=== PATIENT | female | born 1965 | race Caucasian/White ===

== ENCOUNTER → 2017-11-03 12:34 | Outpatient (CLI) | payer MEDICARE, SELFPAY ==
[2017-11-03 11:50] VITALS: BP 90/50; BMI 33.2
== END ==
PROVIDERS: Family Provider Internal Medicine; PCP Internal Medicine; Visit Provider Nurse Practitioner Adult Health
DX: R31.9 Hematuria, unspecified (principal)
CPT/HCPCS: 71046; 87077; 87086; 87088; 87186

== ENCOUNTER → 2017-11-07 11:05 | Outpatient (CLI) | payer MEDICARE, SELFPAY ==
[2017-11-07 11:12] LABS: Red Blood Cells-Urine 0 SEEN /hpf (0-5)
[2017-11-07 12:14] LABS: Color, Urine Yellow (Yellow); Glucose, Dipstick Normal (Normal); Ketone-Dipstick Negative (Negative); Leukocyte Esterase-Dipstick 500 /ul (Negative); Nitrite-Dipstick Negative (Negative); Occult Blood-Urine Negative /ul (Negative); Protein-Dipstick 30 mg/dl (Negative); Urine Clarity Cloudy (Clear); Urine Urobilinogen Normal (Normal)
[2017-11-07 12:17] LABS: Urine Bilirubin Dipstick 1 mg/dL (Negative)
[2017-11-07 12:19] LABS: Absolute Lymphocyte Count 1.34 X10^3/ul (0.83-4.51); Absolute Neutrophil Count 3.3 X10^3/uL (2.0-7.7); Basophil# 0.02 X10^3/uL; Basophil% 0.4 % (0-1); Eosinophil# 0.14 X10^3/uL; Eosinophils% 2.6 % (0-5); Hematocrit 36.3 % (37-47); Hemoglobin 11.4 g/dl (12.0-15.0); Lymphocyte # 1.34 X10^3/ul (4.0); Mean Corp Hgb Conc 31.4 g/gl (32-36); Mean Corpuscular Hgb 31.6 pg (27.0-32.0); Mean Corpuscular Volume 100.6 fL (81-99); Mean Platelet Vol. 9.2 fl (6.2-12.0); Monocyte# 0.54 X10^3/uL; Monocyte% 10.1 % (0-10); Neutrophil # 3.29 X10^3/uL (2.7-7.7); Neutrophil % 61.5 % (47-70); Platelet Count 333 K/mm3 (150-450); RBC Distribution Width CV 14.9 % (11.6-14.6); RBC Distribution Width SD 54.4 fl (35.1-43.9); Red Blood Count 3.61 M/mm3 (4.2-5.4); White Blood Count 5.4 K/mm3 (4.4-11.0)
[2017-11-07 12:22] LABS: POSITIVE COUNT NO; POSITIVE DIFFERENTIAL NO; POSITIVE MORPHOLOGY NO
[2017-11-07 12:26] LABS: White Blood Cells 5-10 SEEN /hpf (0-5)
[2017-11-07 12:27] LABS: Bacteria RARE /hpf (None Seen); Mucous, Urine RARE /hpf (<or=2+); Squamous Epithelial Cells - UA 0-5 SEEN /hpf (5-10)
[2017-11-07 12:32] LABS: ALB/GLOB Ratio 1.2 RATIO (0.9-2.4); AST(SGOT) 26 U/L (15-37); Alanine Aminotransfer ALT/SGPT 31 U/L (13-56); Albumin, Serum 3.6 g/dL (3.2-5.0); Alkaline Phosphatase 110 U/L (45-117); Anion Gap 7 (5-15); BUN 15 mg/dL (7-18); Calcium,Total 8.8 mg/dL (8.5-10.1); Chloride 100 mmol/L (98-107); EST Glomerular Filtration Rate 62 mL/min (>60); Est Glom Filt Rate - Afr Amer 74 mL/min (>60); Globulin 3.1 g/dL (2.2-4.2); Glucose 143 mg/dL (74-106); Potassium 3.9 mmol/L (3.5-5.1); Protein, Total 6.7 g/dL (6.4-8.2); Sodium Level 135 mmol/L (136-145)
== END ==
PROVIDERS: Family Provider Internal Medicine; PCP Internal Medicine; Visit Provider Internal Medicine Cardiovascular Disease
DX: M06.4 Inflammatory polyarthropathy (principal); M79.7 Fibromyalgia; M19.071 Primary osteoarthritis, right ankle and foot; K76.0 Fatty (change of) liver, not elsewhere classified; F32.89 Other specified depressive episodes; F41.9 Anxiety disorder, unspecified; E11.9 Type 2 diabetes mellitus without complications; I10 Essential (primary) hypertension; I43 Cardiomyopathy in diseases classified elsewhere; Z79.899 Other long term (current) drug therapy; Z95.810 Presence of automatic (implantable) cardiac defibrillator
CPT/HCPCS: 80053; 81001; 85025; 87086; 87088

== ENCOUNTER → 2017-11-10 08:57 | Day surgery (SDC) | payer MEDICARE, SELFPAY ==
--- NOTE | 2017-11-03 12:29 | RAD_ITS ---
STUDY: X-RAY CHEST REASON FOR EXAM: Female, 52 years old. ICD generator change. TECHNIQUE: PA and lateral views of the chest. COMPARISON: February 17, 2013. FINDINGS: The lungs are hypoexpanded. No infiltrate or mass. Resolution of mild vascular congestion seen on the prior study. There is no pneumothorax. There is no demonstrated pleural abnormality. The heart remains borderline enlarged. Stable pacemaker/ICD. Normal mediastinum and kari. Normal visualized pulmonary arteries. Normal visualized aortic arch and descending thoracic aorta. No visualized osseous changes. Normal visualized ribs, clavicles, and shoulders. There is no demonstrated abnormality of the visualized soft tissue structures of the upper abdomen. RAD/Chest PA and Lateral IMPRESSION: Stable borderline cardiomegaly with cardiac pacemaker. There is no acute pulmonary disease. Electronically Signed: Dimitris Valderrama DO at 18:21 EST Tel [phone], Service support ,
[2017-11-03 13:35] LABS: Hematocrit 37.6 % (37-47); Hemoglobin 12.2 g/dl (12.0-15.0); Mean Corp Hgb Conc 32.4 g/gl (32-36); Mean Corpuscular Hgb 32.8 pg (27.0-32.0); Mean Corpuscular Volume 101.1 fL (81-99); Mean Platelet Vol. 9.6 fl (6.2-12.0); Platelet Count 366 K/mm3 (150-450); RBC Distribution Width CV 14.9 % (11.6-14.6); RBC Distribution Width SD 53.6 fl (35.1-43.9); Red Blood Count 3.72 M/mm3 (4.2-5.4); White Blood Count 8.7 K/mm3 (4.4-11.0)
[2017-11-03 13:37] LABS: Scan Indicated on CBC? Y/N NO
[2017-11-03 13:46] LABS: Prothrombin Time (Protime)PT. 12.9 SECONDS (11.7-14.9)
[2017-11-03 13:56] LABS: Anion Gap 10 (5-15); BUN 14 mg/dL (7-18); BUN/Creat Ratio 15.1 RATIO (10-20); Calcium,Total 9.2 mg/dL (8.5-10.1); Chloride 101 mmol/L (98-107); Creatinine, Serum 0.93 mg/dL (0.55-1.02); EST Glomerular Filtration Rate 67 mL/min (>60); Est Glom Filt Rate - Afr Amer 81 mL/min (>60); Glucose 112 mg/dL (74-106); Sodium Level 139 mmol/L (136-145)
[2017-11-09 11:32] VITALS: BMI 33.2
[2017-11-09 12:16] LABS: Pregnancy, Serum, hCG Quali. NEGATIVE Negative (0-9 Nonpreg)
--- NOTE | 2017-11-10 11:48 | PCM.OP.BLANK ---
Operative Report Date of Procedure: 11/10/17 Preoperative diagnosis is device at end of life for normal battery depletion. Postoperative diagnosis same as above. After informed consent and IV antibiotics the patient was brought to the [facility] catheterization laboratory and the skin over the device was prepped and draped in the usual sterile manner. Intermittent boluses of Versed, fentanyl and propofol were used for sedation and analgesia as well as 1% subcutaneous lidocaine. An incision was made over the pre-existing device. Using blunt and Bovie dissection the pocket was opened and the device was removed. Careful attention was paid not to injure the pre-existing leads. The lead was removed from the device header and interrogated. There is normal lead function. Hemostasis was obtained. The pocket was flushed with antibiotic solution. The sponge and needle count were correct. The new device was brought to the field. The lead was placed in the appropriate position in the header and secured by the set screw. The lead and the device were then placed in the pocket. Device is a single chamber ICD witha single RV lead. The pocket was closed with a deep layer of running 2-0 Vicryl, a superficial layer of running 4-0 Vicryl, skin with Steri-Strips which were covered with a rolled 4 x 4 and Tegaderm. Patient left the room with the device programmed to proper parameters and there were no complications. All lead parameters were tested and found to be functionally normal. Lead and device serial and model numbers are available in the chart documents provided by the device company hostess party sales representative procedure summary.
== END ==
PROVIDERS: Family Provider Internal Medicine; PCP Internal Medicine; Visit Provider Internal Medicine Cardiovascular Disease
DX: Z95.810 Presence of automatic (implantable) cardiac defibrillator (principal); I43 Cardiomyopathy in diseases classified elsewhere; C83.30 Diffuse large B-cell lymphoma, unspecified site; E11.9 Type 2 diabetes mellitus without complications; N39.0 Urinary tract infection, site not specified; Z79.2 Long term (current) use of antibiotics; Z79.84 Long term (current) use of oral hypoglycemic drugs; Z79.899 Other long term (current) drug therapy; Z00.6 Encounter for examination for normal comparison and control in clinical research program
CPT/HCPCS: 33262; 36415; 80048; 84703; 85027; 85610; 93641; 99152; 99153; J7050

== ENCOUNTER → 2017-11-22 08:30 | Outpatient (CLI) | payer MEDICARE, SELFPAY ==
[2017-11-22 09:21] LABS: Absolute Neutrophil Count 2.3 X10^3/uL (2.0-7.7); Basophil# 0.02 X10^3/uL; Basophil% 0.5 % (0-1); Eosinophil# 0.15 X10^3/uL; Eosinophils% 3.5 % (0-5); Hematocrit 37.3 % (37-47); Hemoglobin 11.9 g/dl (12.0-15.0); Lymphocyte % 30.7 % (19-41); Mean Corp Hgb Conc 31.9 g/gl (32-36); Mean Corpuscular Hgb 31.6 pg (27.0-32.0); Mean Corpuscular Volume 98.9 fL (81-99); Mean Platelet Vol. 9.1 fl (6.2-12.0); Monocyte# 0.48 X10^3/uL; Monocyte% 11.3 % (0-10); Neutrophil # 2.27 X10^3/uL (2.7-7.7); Neutrophil % 53.8 % (47-70); Platelet Count 306 K/mm3 (150-450); RBC Distribution Width CV 14.9 % (11.6-14.6); RBC Distribution Width SD 53.6 fl (35.1-43.9); Red Blood Count 3.77 M/mm3 (4.2-5.4); White Blood Count 4.2 K/mm3 (4.4-11.0)
[2017-11-22 09:25] LABS: POSITIVE COUNT NO; POSITIVE DIFFERENTIAL NO; POSITIVE MORPHOLOGY NO
[2017-11-22 09:44] LABS: ALB/GLOB Ratio 1.1 RATIO (0.9-2.4); AST(SGOT) 34 U/L (15-37); Alanine Aminotransfer ALT/SGPT 27 U/L (13-56); Albumin, Serum 3.6 g/dL (3.2-5.0); Alkaline Phosphatase 102 U/L (45-117); Anion Gap 8 (5-15); BUN 13 mg/dL (7-18); BUN/Creat Ratio 15.3 RATIO (10-20); Calcium,Total 9.3 mg/dL (8.5-10.1); Chloride 99 mmol/L (98-107); Creatinine, Serum 0.85 mg/dL (0.55-1.02); EST Glomerular Filtration Rate 74 mL/min (>60); Est Glom Filt Rate - Afr Amer 90 mL/min (>60); Globulin 3.3 g/dL (2.2-4.2); Glucose 122 mg/dL (74-106); Potassium 3.4 mmol/L (3.5-5.1); Protein, Total 6.9 g/dL (6.4-8.2); Sodium Level 138 mmol/L (136-145)
[2017-11-22 09:46] LABS: LDH 198 U/L (84-246)
== END ==
PROVIDERS: Family Provider Internal Medicine; PCP Internal Medicine; Visit Provider Internal Medicine Medical Oncology
DX: C85.90 Non-Hodgkin lymphoma, unspecified, unspecified site (principal)
CPT/HCPCS: 80053; 83615; 85025

== ENCOUNTER → 2018-01-26 11:10 | Outpatient (CLI) | payer MEDICARE, SELFPAY ==
[2018-01-26 11:48] LABS: Absolute Lymphocyte Count 0.41 X10^3/ul (0.83-4.51); Absolute Neutrophil Count 4.5 X10^3/uL (2.0-7.7); Basophil# 0.01 X10^3/uL; Basophil% 0.2 % (0-1); Differential Indicated SCAN CRITERIA MET; Eosinophil# 0.13 X10^3/uL; Eosinophils% 2.5 % (0-5); Hematocrit 33.8 % (37-47); Hemoglobin 10.4 g/dl (12.0-15.0); Lymphocyte # 0.41 X10^3/ul (4.0); Lymphocyte % 7.8 % (19-41); Mean Corp Hgb Conc 30.8 g/gl (32-36); Mean Corpuscular Hgb 31.4 pg (27.0-32.0); Mean Corpuscular Volume 102.1 fL (81-99); Mean Platelet Vol. 9.7 fl (6.2-12.0); Monocyte# 0.22 X10^3/uL; Monocyte% 4.2 % (0-10); Neutrophil # 4.48 X10^3/uL (2.7-7.7); Neutrophil % 85.1 % (47-70); POSITIVE COUNT NO; POSITIVE DIFFERENTIAL YES; POSITIVE MORPHOLOGY YES; Platelet Count 273 K/mm3 (150-450); RBC Distribution Width CV 17.7 % (11.6-14.6); RBC Distribution Width SD 65.5 fl (35.1-43.9); Red Blood Count 3.31 M/mm3 (4.2-5.4); White Blood Count 5.3 K/mm3 (4.4-11.0)
[2018-01-26 12:17] LABS: Microalbumin,Random Urine 58.6 mg/L (NO RANGE EST.); Microalbumin:Creatinine Ratio 34.3 mg/g CRE (<30 mg/g CRE)
[2018-01-26 12:19] LABS: ALB/GLOB Ratio 1.1 RATIO (0.9-2.4); AST(SGOT) 26 U/L (15-37); Alanine Aminotransfer ALT/SGPT 21 U/L (13-56); Albumin, Serum 3.5 g/dL (3.2-5.0); Alkaline Phosphatase 109 U/L (45-117); Amylase 29 U/L (25-115); Anion Gap 9 (5-15); BUN 16 mg/dL (7-18); BUN/Creat Ratio 14.3 RATIO (10-20); Calcium,Total 9.3 mg/dL (8.5-10.1); Chloride 102 mmol/L (98-107); Cholesterol 77 mg/dL (200); Creatinine, Serum 1.12 mg/dL (0.55-1.02); EST Glomerular Filtration Rate 54 mL/min (>60); Est Glom Filt Rate - Afr Amer 65 mL/min (>60); Globulin 3.2 g/dL (2.2-4.2); Glucose 107 mg/dL (74-106); High Density Lipoprotein 29 mg/dL; Lipase 101 U/L (73-393); Magnesium 1.8 mg/dL (1.6-2.6); Potassium 4.6 mmol/L (3.5-5.1); Protein, Total 6.7 g/dL (6.4-8.2); Sodium Level 138 mmol/L (136-145); Thyroid Stim Hormone (TSH) 1.84 uIU/mL (0.358-3.74); Triglycerides 76 mg/dL; Very Low Density Lipoprotein 15 mg/dL (5-40)
[2018-01-26 12:22] LABS: Anisocytosis 1+
[2018-01-26 12:34] LABS: Digoxin Level 0.92 ng/mL (0.80-2.00)
[2018-01-27 08:39] LABS: Vitamin B12 383 pg/mL (211-911)
== END ==
PROVIDERS: Family Provider Internal Medicine; PCP Internal Medicine; Visit Provider Internal Medicine
DX: I10 Essential (primary) hypertension (principal); M06.4 Inflammatory polyarthropathy; M79.7 Fibromyalgia; M19.071 Primary osteoarthritis, right ankle and foot; K76.0 Fatty (change of) liver, not elsewhere classified; F32.89 Other specified depressive episodes; F41.9 Anxiety disorder, unspecified; E11.9 Type 2 diabetes mellitus without complications; E03.9 Hypothyroidism, unspecified; R10.13 Epigastric pain; I42.9 Cardiomyopathy, unspecified; E55.9 Vitamin D deficiency, unspecified; E78.2 Mixed hyperlipidemia; R53.83 Other fatigue; Z79.899 Other long term (current) drug therapy
CPT/HCPCS: 36415; 80053; 80061; 80162; 82043; 82150; 82306; 82570; 82607; 83690; 83735; 84443; 85025

== ENCOUNTER → 2018-02-23 15:18 | Outpatient (CLI) | payer MEDICARE, SELFPAY ==
[2018-02-23 15:41] LABS: Absolute Lymphocyte Count 0.82 X10^3/ul (0.83-4.51); Absolute Neutrophil Count 5.4 X10^3/uL (2.0-7.7); Basophil# 0.04 X10^3/uL; Basophil% 0.6 % (0-1); Eosinophil# 0.03 X10^3/uL; Eosinophils% 0.4 % (0-5); Hematocrit 34.2 % (37-47); Hemoglobin 10.7 g/dl (12.0-15.0); Lymphocyte # 0.82 X10^3/ul (4.0); Mean Corp Hgb Conc 31.3 g/gl (32-36); Mean Corpuscular Hgb 31.9 pg (27.0-32.0); Mean Corpuscular Volume 102.1 fL (81-99); Mean Platelet Vol. 10.8 fl (6.2-12.0); Monocyte# 0.56 X10^3/uL; Monocyte% 8.2 % (0-10); Neutrophil % 78.7 % (47-70); Platelet Count 276 K/mm3 (150-450); RBC Distribution Width CV 18.3 % (11.6-14.6); RBC Distribution Width SD 66.8 fl (35.1-43.9); Red Blood Count 3.35 M/mm3 (4.2-5.4); White Blood Count 6.9 K/mm3 (4.4-11.0)
[2018-02-23 15:57] LABS: Erythrocyte Sedimentation Rate 16 mm/hr (0-30)
[2018-02-23 15:58] LABS: Differential Indicated SCAN CRITERIA MET; POSITIVE COUNT NO; POSITIVE DIFFERENTIAL NO; POSITIVE MORPHOLOGY YES
[2018-02-23 16:05] LABS: ALB/GLOB Ratio 1.4 RATIO (0.9-2.4); AST(SGOT) 186 U/L (15-37); Alanine Aminotransfer ALT/SGPT 86 U/L (13-56); Albumin, Serum 3.7 g/dL (3.2-5.0); Alkaline Phosphatase 105 U/L (45-117); Amylase 27 U/L (25-115); Anion Gap 11 (5-15); BUN 16 mg/dL (7-18); BUN/Creat Ratio 13.7 RATIO (10-20); Calcium,Total 9.2 mg/dL (8.5-10.1); Chloride 98 mmol/L (98-107); Creatinine, Serum 1.17 mg/dL (0.55-1.02); EST Glomerular Filtration Rate 51 mL/min (>60); Est Glom Filt Rate - Afr Amer 62 mL/min (>60); Globulin 2.6 g/dL (2.2-4.2); Glucose 120 mg/dL (74-106); Lipase 92 U/L (73-393); Potassium 5.1 mmol/L (3.5-5.1); Protein, Total 6.3 g/dL (6.4-8.2); Sodium Level 134 mmol/L (136-145)
[2018-02-23 16:56] LABS: Anisocytosis RARE; Macrocytosis 1+
== END ==
PROVIDERS: Family Provider Internal Medicine; Visit Provider Internal Medicine
DX: R10.13 Epigastric pain (principal)
CPT/HCPCS: 80053; 82150; 83690; 85025; 85652

== ENCOUNTER 2018-03-07 22:08 | Inpatient (IN) | payer MEDICARE, SELFPAY ==
[2018-03-07] MEDS: Dextrose 50%-Water 25 GM/50 ML DISP.SYRIN IV ×2 (22:12→23:01)
[2018-03-07 22:19] VITALS: BP 129/95; PULSE 91; RESP 24; TEMP 37.3; O2SAT 95; BMI 35.9
[2018-03-07 22:25] VITALS: BP 121/95; PULSE 85; RESP 33; O2SAT 100
--- NOTE | 2018-03-07 22:31 | ED.RN ---
CALLED FOR EKG PER RN REQUEST, PULLED OLD EKG'S FOR
--- NOTE | 2018-03-07 22:32 | RAD_ITS ---
STUDY: X-RAY CHEST REASON FOR EXAM: Female, 52 years old. Chest pain. TECHNIQUE: Single AP portable view of the chest. COMPARISON: Afebrile 2017 FINDINGS: Left pacer in place with lead overlying the right atrium. There is no demonstrated pleural abnormality. There is moderate cardiac enlargement. Normal mediastinum and kari. Normal visualized pulmonary arteries. Normal visualized aortic arch and descending thoracic aorta. Normal visualized thoracic spine. Normal visualized ribs, clavicles, and shoulders. There is no demonstrated abnormality of the visualized soft tissue structures of the upper abdomen. RAD/Chest 1 View (Portable) IMPRESSION: Moderate cardiomegaly with no evidence of pulmonary vascular congestion. Electronically Signed: Lambetro Arreola DO at 23:00 EDT , Service support ,
--- NOTE | 2018-03-07 22:32 | EKG12_ITS ---
Test Reason : CHEST PAIN Blood Pressure : / mmHG Vent. Rate : 083 BPM Atrial Rate : 083 BPM P-R Int : 270 ms QRS Dur : 152 ms QT Int : 446 ms P-R-T Axes : 020 -59 088 degrees QTc Int : 524 ms Sinus rhythm with 1st degree A-V block Left axis deviation Non-specific intra-ventricular conduction block Lateral infarct , age undetermined Inferior infarct , age undetermined Abnormal ECG Confirmed by LISA KING, MERLYN ([id number]), editor newspaper ASHLI CHAN ([id number]) on 03/08/2018 5:05:31 PM Referred By: TORRES LOPEZ Confirmed By:MERLYN GONZALEZ MD
[2018-03-07] MEDS: 0.9% Normal Saline 1,000 ML 150 ML IV (22:35)
[2018-03-07 22:40] VITALS: O2SAT 97
[2018-03-07 22:50] VITALS: PULSE 92; RESP 36; O2SAT 99
[2018-03-07] MEDS: Albuterol 2.5 MG/3 ML VIAL.NEB. INHALATION ×2 (22:50)
[2018-03-07] MEDS: Calcium Chloride 1 GM/10 ML Syringe IV (22:50)
[2018-03-07 22:54] LABS: Absolute Lymphocyte Count 0.68 X10^3/ul (0.83-4.51); Absolute Neutrophil Count 4.4 X10^3/uL (2.0-7.7); Basophil# 0.01 X10^3/uL; Basophil% 0.2 % (0-1); Hematocrit 36.9 % (37-47); Hemoglobin 10.8 g/dl (12.0-15.0); Lymphocyte # 0.68 X10^3/ul (4.0); Lymphocyte % 12.3 % (19-41); Mean Corp Hgb Conc 29.3 g/gl (32-36); Mean Corpuscular Hgb 30.9 pg (27.0-32.0); Mean Corpuscular Volume 105.4 fL (81-99); Mean Platelet Vol. 11.4 fl (6.2-12.0); Monocyte# 0.39 X10^3/uL; Monocyte% 7.1 % (0-10); Neutrophil % 79.9 % (47-70); Platelet Count 170 K/mm3 (150-450); RBC Distribution Width CV 19.3 % (11.6-14.6); White Blood Count 5.5 K/mm3 (4.4-11.0)
[2018-03-07 22:58] LABS: Differential Indicated SCAN CRITERIA MET; POSITIVE COUNT NO; POSITIVE DIFFERENTIAL NO; POSITIVE MORPHOLOGY YES
[2018-03-07 23:06] LABS: Allen Test POS; Base Excess -23 mmol/L (-2 to +2); Bicarbonate 6.2 mmol/L (22-26); Blood Gas Specimen Type ART; O2 Delivery Device Nasal Can; PO2 149 mmHG (75-100); SITE L Radial; SO2 99 % (95-99); Time Given 1100; Total Carbon Dioxide 7 mmol/L; pH 7.15 (7.35-7.45)
[2018-03-07 23:12] LABS: AST(SGOT) 149 U/L (15-37); Alanine Aminotransfer ALT/SGPT 120 U/L (13-56); Alkaline Phosphatase 94 U/L (45-117); Anion Gap 19 (5-15); BUN 30 mg/dL (7-18); BUN/Creat Ratio 15.8 RATIO (10-20); Bilirubin, Direct 1.07 mg/dL (0.00-0.30); Calcium,Total 8.5 mg/dL (8.5-10.1); Chloride 99 mmol/L (98-107); EST Glomerular Filtration Rate 29 mL/min (>60); Est Glom Filt Rate - Afr Amer 35 mL/min (>60); Globulin 2.9 g/dL (2.2-4.2); Glucose 310 mg/dL (74-106); Lipase 86 U/L (73-393); Potassium 7.6 mmol/L (3.5-5.1); Protein, Total 5.9 g/dL (6.4-8.2); Sodium Level 129 mmol/L (136-145)
[2018-03-07] MEDS: Sodium Bicarbonate 8.4% 50 ML Syringe 50 MEQ IV ×2 (23:13)
[2018-03-07 23:24] LABS: Anisocytosis 1+; Crenated RBC 1+; Differential Comment SCANNED
--- NOTE | 2018-03-07 23:28 | EKG12_ITS ---
Test Reason : ALT LOC/FALL Blood Pressure : / mmHG Vent. Rate : 085 BPM Atrial Rate : 085 BPM P-R Int : 000 ms QRS Dur : 148 ms QT Int : 524 ms P-R-T Axes : 000 -59 094 degrees QTc Int : 623 ms Sinus bradycardia Left bundle branch block Left axis deviation Non-specific intra-ventricular conduction block Lateral infarct , age undetermined Inferior infarct , age undetermined Abnormal ECG Confirmed by LISA KING, MERLYN ([id number]), assistant film editor ASHLI CHAN ([id number]) on 03/08/2018 5:06:23 PM Referred By: JOHN Confirmed By:MERLYN GONZALEZ MD
--- NOTE | 2018-03-07 23:28 | EKG12_ITS ---
Test Reason : REPEAT Blood Pressure : / mmHG Vent. Rate : 073 BPM Atrial Rate : 085 BPM P-R Int : 000 ms QRS Dur : 010 ms QT Int : 356 ms P-R-T Axes : 000 000 001 degrees QTc Int : 392 ms Accelerated Junctional rhythm with ventricular escape complexes Indeterminate axis ST & T wave abnormality, consider anterolateral ischemia Abnormal ECG Confirmed by LISA KING, MERLYN ([id number]), editor in chief ASHLI CHAN ([id number]) on 03/08/2018 5:10:57 PM Referred By: JOHN Confirmed By:MERLYN GONZALEZ MD
--- NOTE | 2018-03-07 23:29 | EKG12_ITS ---
Test Reason : REPEAT #3 Blood Pressure : / mmHG Vent. Rate : 087 BPM Atrial Rate : 087 BPM P-R Int : 244 ms QRS Dur : 166 ms QT Int : 432 ms P-R-T Axes : 058 -62 073 degrees QTc Int : 519 ms Sinus rhythm with 1st degree A-V block Left axis deviation Left bundle branch block Abnormal ECG Confirmed by LISA KING, MERLYN ([id number]), editor city ASHLI CHAN ([id number]) on 03/08/2018 5:11:19 PM Referred By: JOHN Confirmed By:MERLYN GONZALEZ MD
[2018-03-07 23:36] LABS: Bedside Glucose 214 mg/dL (70-110)
--- NOTE | 2018-03-07 23:47 | RAD_ITS ---
STUDY: X-RAY CHEST REASON FOR EXAM: Female, 52 years old. Central line placement. TECHNIQUE: AP portable chest. COMPARISON: March 07, 2018 at 10:40 PM.. FINDINGS: There is now a right internal jugular central line with the tip at the junction of the superior vena cava and right atrium. No pneumothorax. The lungs are clear and expanded. There is no demonstrated pleural abnormality. Mild to moderate cardiac enlargement unchanged.. Normal mediastinum and kari. Normal visualized pulmonary arteries. Normal visualized aortic arch and descending thoracic aorta. Normal visualized thoracic spine. Normal visualized ribs, clavicles, and shoulders. Cardiac pacemaker left hemithorax. There is no demonstrated abnormality of the visualized soft tissue structures of the upper abdomen. RAD/CXR for Line Placement IMPRESSION: Right internal jugular central line with the tip at the junction of superior vena cava and right atrium, in its expected location. No pneumothorax. Stable cardiomegaly. Electronically Signed: Jin Rolon MD at 0:12 EDT , Service support ,
[2018-03-08] VITALS (56 sets, daily range): BP systolic 60–129; BP diastolic 25–90; PULSE 77–116; RESP 13–26; TEMP 35.7–37.7; O2SAT 93–100; BMI 37.4
[2018-03-08] MEDS: 0.9% Normal Saline 1,000 ML 999 ML IV ×4 (00:15→01:46)
[2018-03-08 00:22] LABS: International Normalized Ratio 2.4; Prothrombin Time (Protime)PT. 26.4 SECONDS (11.7-14.9)
[2018-03-08 00:23] LABS: Partial Thromboplast Time 33.7 Seconds (24.1-36.2)
--- NOTE | 2018-03-08 00:27 | CT_ITS ---
STUDY: CT BRAIN WITHOUT CONTRAST REASON FOR EXAM: Female, 52 years old. Altered mental status. Low blood sugar. Elevated blood pressure. History of Burkitt's lymphoma. RADIATION DOSAGE (If Supplied By Facility): CTDIvol = ( 44.99 ) mGy, DLP = ( 812.98 ) mGycm TECHNIQUE: Transaxial CT imaging of the brain was performed without administration of intravenous contrast material. Individualized dose optimization techniques were used for this CT. COMPARISON: February 05, 2014. FINDINGS: Normal soft tissue structures. Normal calvarium. Normal size ventricles and extra-axial spaces for the patient's age. Normal white matter tracts of the cerebral hemispheres. Normal basal ganglia and thalami. Normal brainstem. Normal cerebellum. There is no intracranial hemorrhage. There are no findings of an acute ischemic infarction. Normal visualized paranasal sinuses. CT/Brain/Head without Contrast IMPRESSION: Normal unenhanced CT scan of the brain. Electronically Signed: Jin Rolon MD at 1:58 EDT , Service support ,
[2018-03-08 00:53] LABS: Digoxin Level 0.32 ng/mL (0.80-2.00)
[2018-03-08 00:54] LABS: Lactic Acid 12.4 mmol/L (0.4-2.0)
--- NOTE | 2018-03-08 00:58 | ED.RN ---
LAB CALLS WITH CRITICAL RESULT, LACTIC 12.4, DR. LOPEZ MADE AWARE.
[2018-03-08 01:04] LABS: Acetaminophen (Tylenol) Level 4.9 ug/mL (10.0-30.0); Salicylate < 1.7 mg/dL (2.8-20.0)
[2018-03-08 01:06] LABS: Bedside Glucose 169 mg/dL (70-110)
[2018-03-08 01:07] LABS: Anion Gap 16 (5-15); BUN 29 mg/dL (7-18); BUN/Creat Ratio 16.7 RATIO (10-20); Calcium,Total 8.8 mg/dL (8.5-10.1); Chloride 104 mmol/L (98-107); Creatinine, Serum 1.74 mg/dL (0.55-1.02); EST Glomerular Filtration Rate 32 mL/min (>60); Est Glom Filt Rate - Afr Amer 39 mL/min (>60); Glucose 176 mg/dL (74-106); Potassium 6.2 mmol/L (3.5-5.1); Sodium Level 135 mmol/L (136-145)
--- NOTE | 2018-03-08 01:19 | ED.VISSUMM ---
- ER Visit Summary Date of Service: 03/08/18 Chief Complaint: Unresponsive History of Present Illness: The patient is a 52 F brought in by EMS following being found unresponsive in the bathroom. Patient was noted to be hypoglycemic and received oral glucose in route to the hospital. Friends tell me that they were sitting with her conversing and she was telling them she was having epigastric pain. She has been treated with Carafate recently. Friends state that she stated she needed to use the bathroom went to the bathroom. They found her unresponsive there. He states she has been under a lot of stress lately having lost a friend recently. Patient denies any suicidal or homicidal ideation she denies taking any extra medications. She has a history of non-Hodgkin's lymphoma, diabetes mellitus (on metformin) anemia. She sees Dr. Ch for cardiology. She has a nonischemic cardiomyopathy and an ICD in place for persistent ventricular dysfunction. Reported ejection fraction 25%. Dr. Montes De Oca is her primary care physician. Patient is on metformin and denies any change in the dosages. Physical Examination: 121/95 temperature 99.2 heart rate of 85 respirations are 33 pulse ox is 100% on room air Gen: Well-nourished well-developed obese Head: Normocephalic atraumatic Eyes: Perrl EOMI ENT: TMs clear no rhinorrhea moist mucous membranes Neck: Supple no lymphadenopathy no JVD nontender CVS: Regular rate rhythm no murmurs normal S1-S2 Respiratory: No distress clear to auscultation bilaterally chest nontender Abdomen: Soft nontender nondistended normal bowel sounds no masses Back: Nontender Extremity: Nontender no edema Skin: Patient is pale and diaphoretic no rash Neuro: Patient is lethargic but will open her eyes to voice and will converse in short sentences. Psych: She denies suicidal or homicidal ideas vital. Test Results: White count 5.5. Hemoglobin 10.8. Platelets of 170. Sodium 129 potassium 7.6 (this was repeated later in her ED course and was 6.2) BUN of 30 creatinine 1.9. LFTs total bili 2.4 alk phos 94 ALT of 120 AST 149 lipase 89 INR 2.4 PTT 33.7 Troponin 0 0.081 Lactic acid 12.4 ketones negative Magnesium 2 Digoxin 0.32 Alcohol level negative Emergency Department Course and Treatment: She received an amp of D50 unfortunately the staff blew the original IV. The second half and another full amp was given through a second IV. Patient became more awake and more conversant. She however remained tachypneic. EKG demonstrated a wide QRS rhythm. And 20 minutes later the patient's QRS became significantly more widened. While we awaited blood work the patient received albuterol aerosols. ABG during this time revealed a pH of 7.14 with PCO2 of 18 PO2 of 149 bicarbonate of 6.2. Patient received 2 g of bicarb as well as IV fluids. The patient's EKG improved and eventually returned to a sinus rhythm with a first-degree AV block. But still with slightly widened QRS complexes. The patient's sole remaining IV was lost and a right internal jugular central line was placed using the modified Seldinger technique under ultrasound guidance. This was obtained on the first attempt without any complications. Patient tolerated the procedure well. Chest x-ray showed appropriate placement. Patient's blood pressure has declined but her means have been greater than 66. Repeat ABG shows a pH of 7.197. CO2 24.4 PO2 of 137 bicarbonate 9.5 she was placed on a bicarbonate drip as the QRS complexes continue to try to widen out. She continues to mentate appropriately. Plan will be admission into the ICU. Impression: 1. Diabetic hypoglycemia 2. High anion gap metabolic acidosis 3. Severe hyperkalemia secondary to metabolic acidosis 4. Acute kidney injury 5. Central line placement by emergency physician 6. Critical care time 35 minutes This note was generated with [employer] dictation software. It may contain incorrect words, spelling, and punctuation that were not noted in review of the chart prior to signing ED Disposition - Plan for ED Patient: Disposition: Acute Care Hospital [facility] Chief Complaint: General Illness
--- NOTE | 2018-03-08 01:30 | ED.DCSUM_ITS ---
- ER Visit Summary Date of Service: 03/08/18 Chief Complaint: Unresponsive History of Present Illness: The patient is a 52 F brought in by EMS following being found unresponsive in the bathroom. Patient was noted to be hypoglycemic and received oral glucose in route to the hospital. Friends tell me that they were sitting with her conversing and she was telling them she was having epigastric pain. She has been treated with Carafate recently. Friends state that she stated she needed to use the bathroom went to the bathroom. They found her unresponsive there. He states she has been under a lot of stress lately having lost a friend recently. Patient denies any suicidal or homicidal ideation she denies taking any extra medications. She has a history of non- Hodgkin's lymphoma, diabetes mellitus (on metformin) anemia. She sees Dr. Ch for cardiology. She has a nonischemic cardiomyopathy and an ICD in place for persistent ventricular dysfunction. Reported ejection fraction 25%. Dr. Montes De Oca is her primary care physician. Patient is on metformin and denies any change in the dosages. Physical Examination: 121/95 temperature 99.2 heart rate of 85 respirations are 33 pulse ox is 100% on room air Gen: Well-nourished well-developed obese Head: Normocephalic atraumatic Eyes: Perrl EOMI ENT: TMs clear no rhinorrhea moist mucous membranes Neck: Supple no lymphadenopathy no JVD nontender CVS: Regular rate rhythm no murmurs normal S1-S2 Respiratory: No distress clear to auscultation bilaterally chest nontender Abdomen: Soft nontender nondistended normal bowel sounds no masses Back: Nontender Extremity: Nontender no edema Skin: Patient is pale and diaphoretic no rash Neuro: Patient is lethargic but will open her eyes to voice and will converse in short sentences. Psych: She denies suicidal or homicidal ideas vital. Test Results: White count 5.5. Hemoglobin 10.8. Platelets of 170. Sodium 129 potassium 7.6 (this was repeated later in her ED course and was 6.2) BUN of 30 creatinine 1.9. LFTs total bili 2.4 alk phos 94 ALT of 120 AST 149 lipase 89 INR 2.4 PTT 33.7 Troponin 0 0.081 Lactic acid 12.4 ketones negative Magnesium 2 Digoxin 0.32 Alcohol level negative Emergency Department Course and Treatment: She received an amp of D50 unfortunately the staff blew the original IV. The second half and another full amp was given through a second IV. Patient became more awake and more conversant. She however remained tachypneic. EKG demonstrated a wide QRS rhythm. And 20 minutes later the patient's QRS became significantly more widened. While we awaited blood work the patient received albuterol aerosols. ABG during this time revealed a pH of 7.14 with PCO2 of 18 PO2 of 149 bicarbonate of 6.2. Patient received 2 g of bicarb as well as IV fluids. The patient's EKG improved and eventually returned to a sinus rhythm with a first- degree AV block. But still with slightly widened QRS complexes. The patient's sole remaining IV was lost and a right internal jugular central line was placed using the modified Seldinger technique under ultrasound guidance. This was obtained on the first attempt without any complications. Patient tolerated the procedure well. Chest x-ray showed appropriate placement. Patient's blood pressure has declined but her means have been greater than 66. Repeat ABG shows a pH of 7.197. CO2 24.4 PO2 of 137 bicarbonate 9.5 she was placed on a bicarbonate drip as the QRS complexes continue to try to widen out. She continues to mentate appropriately. Plan will be admission into the ICU. Impression: 1. Diabetic hypoglycemia 2. High anion gap metabolic acidosis 3. Severe hyperkalemia secondary to metabolic acidosis 4. Acute kidney injury 5. Central line placement by emergency physician 6. Critical care time 35 minutes This note was generated with [employer] dictation software. It may contain incorrect words, spelling, and punctuation that were not noted in review of the chart prior to signing ED Disposition - Plan for ED Patient: Disposition: Acute Care Hospital [facility] Chief Complaint: General Illness
[2018-03-08] MEDS: Sodium Bicarbonate 8.4% 50 ML Syringe 50 MEQ IV (01:46)
[2018-03-08 02:01] LABS: Color, Urine Yellow (Yellow); Glucose, Dipstick Normal (Normal); Ketone-Dipstick 50 mg/dl (Negative); Leukocyte Esterase-Dipstick 100 /ul (Negative); Nitrite-Dipstick Negative (Negative); Occult Blood-Urine 25 /ul (Negative); Protein-Dipstick 100 mg/dl (Negative); Specific Gravity, Urine 1.025 (1.002-1.030); Urine Clarity Cloudy (Clear); Urine Urobilinogen 4 mg/dl (Normal)
[2018-03-08 02:03] LABS: Urine Bilirubin Dipstick 1 mg/dL (Negative)
[2018-03-08 02:08] LABS: Hyaline Cast 5-10 SEEN /lpf (0-5); Mucous, Urine 2+ /hpf (<or=2+)
[2018-03-08 02:09] LABS: Amorphous Sediment 2+; Bacteria RARE /hpf (None Seen); Red Blood Cells-Urine 0-5 SEEN /hpf (0-5); Squamous Epithelial Cells - UA 0-5 SEEN /hpf (5-10); White Blood Cells 5-10 SEEN /hpf (0-5)
[2018-03-08 02:15] LABS: Amphetamine Urine VISTA NEGATIVE (<1000 ng/mL); Barbiturate Urine VISTA NEGATIVE (< 200 ng/mL); Benzodiazepine Urine VISTA NEGATIVE (< 200 ng/mL); Cocaine Urine VISTA NEGATIVE (< 300 ng/mL); Ecstacy Urine VISTA NEGATIVE (< 500 ng/mL); Methadone Urine VISTA NEGATIVE (< 300 ng/mL); PCP Urine VISTA NEGATIVE (< 25 ng/mL); THC Urine VISTA NEGATIVE (< 50 ng/mL); Vista UDS pH Range 5
--- NOTE | 2018-03-08 02:39 | PCM.HP.STD ---
Problem List (1) Metabolic acidosis Status: Acute (2) Hyperkalemia Status: Acute (3) Syncope Status: Acute (4) FAN (acute kidney injury) Status: Acute History of Present Illness Date of Admission: 03/08/18 Chief Complaint: unresponsiveness The patient is a 52 year old F who was found unresponsive in the bathroom. Prior to that patient was cleaning some epigastric pain that she been dealing with for about a week went to the bathroom and was found unresponsive. Patient was brought to the emergency room and patient was found to have significant electrolyte derangements. Patient was found to have a potassium of 7.6, sodium 129 and a creatinine of 1.9. Lactic acid came back at 12.4. Patient noted to have a wide-complex EKG and did receive bicarbonate as well as IV fluids. Only, patient received calcium chloride and albuterol. Patient's subsequent potassium went down to 6.2. Patient also had a metabolic acidosis on ABG that the pH only improved slightly from 7.15-7.19 after administration of medications. Patient has subsequently been put on bicarbonate drip. Patient and family deny any toxic substance such as antifreeze ingestion. Patient's friend recently on Tuesday patient states that she has not been eating much but states that she has been drinking water. Patient denies any suicidal ideation. [] Past Medical History Past Medical History (Chronic Problems): Chronic Problems (Last Updated 11/28/17 @ 11:06 by Liza Landry) Type 2 diabetes mellitus without complications (Chronic) S/P implantation of automatic cardioverter/defibrillator (AICD) (Chronic) 10/06/2009 @ [facility] Cardiomyopathy in other diseases classified elsewhere (Chronic) Abnormal electrocardiogram (Chronic) Shortness of breath (Chronic) Diffuse large B-cell lymphoma (Chronic) Medical History: Medical History (Last Reviewed 03/08/18 @ 02:42 by Nick Tamez DO) Type 2 diabetes mellitus without complications (Chronic) E11.9 Cardiomyopathy in other diseases classified elsewhere (Chronic) I43 Abnormal electrocardiogram (Chronic) R94.31 Shortness of breath (Chronic) R06.02 Diffuse large B-cell lymphoma (Chronic) C83.30 Bilateral caract surgery Left - 09/28/17; Right - 10/20/17 Decomp laminectomy to remove T6-7 mass Depression F32.9 Fibromyalgia M79.7 Heel spur surgery History of hysteroscopy Z98.890 Left thyroid aspiration 03/17/17 - benign Replacement of generator for debrillator 11/10/17 Sleep apnea G47.30 Thyroid nodule E04.1 Allergies amitriptyline Adverse Reaction (Severe, Verified 11/28/17 11:08) Nightmares naproxen sodium [From Aleve] Adverse Reaction (Severe, Verified 11/28/17 11:08) Swelling Nasal swelling - causing difficulty breathing Sulfa (Sulfonamide Antibiotics) Adverse Reaction (Intermediate, Verified 11/28/17 11:08) Rash Latex, Natural Rubber Adverse Reaction (Mild, Verified 11/28/17 11:08) Other irritates/smith the skin Home Medications: Ambulatory Orders Medication Instructions Recorded Amitriptyline HCl 1 - 2 mg PO QHS PRN 03/07/18 Carvedilol [Coreg] 0.5 tab PO BID 03/07/18 Cholecalciferol (Vitamin D3) 5,000 unit PO DAILY 03/07/18 [Vitamin D3] Clonazepam [Klonopin] 1 mg PO QHS 03/07/18 Digoxin 125 mcg PO DAILY 03/07/18 Folic Acid 1 mg PO BIDCM 03/07/18 Furosemide [Lasix] 40 mg PO DAILY 03/07/18 Gabapentin [Neurontin] 100 mg PO BID 03/07/18 Lamotrigine [Lamictal] 200 mg PO QHS 03/07/18 Levothyroxine [Synthroid] 50 mcg PO MOTUWETHFR 03/07/18 Levothyroxine [Synthroid] 50 mcg PO SUSA 03/07/18 Lisinopril [Zestril] 2.5 mg PO DAILY 03/07/18 Melatonin 3 mg PO DAILY 03/07/18 Metformin HCl [Glucophage] 2 tab PO BID 03/07/18 Omeprazole [Prilosec] 20 mg PO DAILY 03/07/18 Ondansetron HCl [Zofran] 4 mg PO Q8H PRN 03/07/18 Potassium Chloride [Klor-Con M20] 20 meq PO TID 03/07/18 Sennosides [Senokotxtra] 8.6 mg PO DAILY 03/07/18 Simvastatin [Zocor] 10 mg PO QHS 03/07/18 Spironolactone 12.5 mg PO DAILY 03/07/18 Sucralfate [Carafate] 1 gm PO 4X/DAY 03/07/18 Venlafaxine HCl [Venlafaxine HCl 150 mg PO DAILY 03/07/18 ER] Vicodin 5-500 Mg Tablet 5 - 500 mg PO Q6H PRN 03/07/18 Surgical History: Surgical History (Last Reviewed 03/08/18 @ 02:42 by Nick Tamez DO) S/P implantation of automatic cardioverter/defibrillator (AICD) (Chronic) Z95.810 10/06/2009 @ [facility] History of cholecystectomy Z98.890, Z90.49 History of stem cell transplant Z94.84 Surgical History: - - cholecystecomy Smoking Status: Never smoker Tobacco Use: Non-smoker Alcohol: None Drugs: None - *Family History Maternal Family History: Family History (Last Reviewed 03/08/18 @ 02:42 by Nick Tamez DO) Father CVA (cerebral vascular accident) Diabetes Hypertension Mother Hypertension Brother Diabetes Hypertension History Items: Unknown Review of Systems Constitutional: Reports: Anorexia. Denies: Chills, Fever Eyes: Denies: Blurred vision, Double vision HEENT: Denies: Head Aches, Sinus Congestion, Sinus Drainage Cardiovascular: Reports: Edema - In right lower extremity. Denies: Chest Pain, Palpitations Respiratory: Denies: Cough, Shortness of breath at rest, Sputum production Gastrointestinal: Reports: Abdominal Pain. Denies: Nausea, Vomiting Genitourinary: Denies: Dysuria Musculoskeletal: Denies: Joint Pain, Joint Tenderness Skin: Denies: Rash, Wounds Neurological: Denies: Numbness, Tingling, Focal weakness Psychiatric: Denies: Anxiety, Depression Endocrine: Denies: Change in Body Habitus, Heat/ Cold Intolerance Hematologic/ Lymphatic: Denies: Easy Bruising, Easy Bleeding, Hx of blood clot Comment: Otherwise all review systems are negative except for as mentioned above in HPI and review of systems. VTE Information - Inpt Only VTE Present on Admission: No VTE Mechan Device Prophylaxis: SCD's VTE Pharm Prophylaxis ordered?: Yes Patient Problems: Active and Suspected Problems (Last Updated 11/28/17 @ 11:06 by Liza Landry) Metabolic acidosis (Acute) Hyperkalemia (Acute) Syncope (Acute) FAN (acute kidney injury) (Acute) - Physical Exam General: Alert, - - Listless. Afebrile. HEENT: Atraumatic, Normocephalic Oral: Moist Mucosa, No Gingival or Mucosal Lesions/ Ulcerations Neck: No Nodes, Thyroid Normal Size and Texture, - - Right IJ catheter Lungs: Clear to auscultation, Normal air movement, No rhonchi, No wheeze Cardiovascular: Regular rate, Regular Rhythm, Normal S1, Normal S2, No murmurs Abdomen: Bowel Sounds Present, Soft, Non Tender, Non-Distended, No Hepato-splenomegaly Extremities: No edema, No Calf Tenderness Skin: No rashes, No breakdown Musculoskeletal: No Tenderness to Palpation of Joints or Extremities, No Muscle Wasting Neurological: Deep Tendon Reflexes 2+/4 and Symmetrical, - - Sensation intact. Psych/Mental Status: Appropriate, Flat Affect Vital Signs Temp Pulse Resp BP Pulse Ox 37.3 C H 88 24 H 95/66 98 03/07/18 22:19 03/08/18 02:11 03/08/18 02:11 03/08/18 02:11 03/08/18 02:11 Laboratory Tests Past 24 Hrs 03/08/18 03/08/18 01:55 01:55 Urine Color Yellow Urine Clarity Cloudy Urine pH 5.0 Ur Specific [place] 1.025 Urine Protein 100 H Urine Glucose (UA) Normal Urine Ketones 50 H Urine Occult Blood 25 H Urine Nitrite Negative Urine Bilirubin 1 H Urine Urobilinogen 4 H Ur Leukocyte Esterase 100 H Urine RBC 0-5 SEEN Urine WBC 5-10 SEEN Ur Squamous Epith Cells 0-5 SEEN Amorphous Sediment 2+ Urine Bacteria RARE Hyaline Casts 5-10 SEEN Urine Mucus 2+ Urine Opiates Screen POSITIVE H Urine Methadone Screen NEGATIVE Ur Barbiturates Screen NEGATIVE Ur Phencyclidine Scrn NEGATIVE Ur Amphetamines Screen NEGATIVE U Methamphetamin-MDMA NEGATIVE U Benzodiazepines Scrn NEGATIVE Urine Cocaine Screen NEGATIVE U Cannabinoids Screen NEGATIVE Ur Drug Screen Comment Clinical Impression(s) from Imaging Studies Chest X-Ray 03/07/18 22:32 IMPRESSION: Moderate cardiomegaly with no evidence of pulmonary vascular congestion. Electronically Signed: Lamberto Arreola DO at 23:00 EDT , Service support , Chest X-Ray 03/07/18 23:47 IMPRESSION: Right internal jugular central line with the tip at the junction of superior vena cava and right atrium, in its expected location. No pneumothorax. Stable cardiomegaly. Electronically Signed: Jin Rolon MD at 0:12 EDT , Service support , Brain CT 03/08/18 00:27 IMPRESSION: Normal unenhanced CT scan of the brain. Electronically Signed: Jin Rolon MD at 1:58 EDT , Service support , Assessment/Plan All Active Problems (Last Updated 11/28/17 @ 11:06 by Liza Landry) History of non-Hodgkin's lymphoma (Resolved) alf use of drug (Acute) Pain, axillary (Acute) Anemia (Acute) Metabolic acidosis (Acute) Hyperkalemia (Acute) Syncope (Acute) FAN (acute kidney injury) (Acute) 1. Metabolic acidosis Unclear etiology at this time. Patient and family refused any kind of methanol nor ethylene glycol ingestion. The patient denies suicide attempt. I suspect this may relate with the patient's renal failure but it is unclear given the degree of metabolic acidosis that she is sustained. Will continue with the bicarbonate drip as well as IV fluids for now though would need to be cautious with IV fluid given patient's history of heart failure with reduced ejection fraction Will repeat ABG this morning as well as BMP this morning as well. 2. Hyperkalemia Improved with correction of the metabolic acidosis and would anticipate improved potassium levels with correction of the metabolic acidosis. Patient did have EKG changes noted on EKG which have improved with correction of metabolic acidosis. Given these EKGs findings patient will be admitted to the ICU for more intense monitoring. I suspect is related to patient's renal failure but also her concomitant spironolactone usage. 3. Acute kidney injury Patient had a creatinine of 1.17 from February 23 of this year and it was 1.9 upon admission today. I feel that this is likely prerenal in etiology and would anticipate improvements Will hold diuretics for now and reassess. 4. Lactic acidosis Likely just related with a metabolic acidosis but will follow that up. 5. Abdominal pain Patient with some epigastric pain. Does not strike me as a surgical abdomen Will check a flat plate x-ray. If abdominal pain is ongoing and x-rays unremarkable would consider a CAT scan of the abdomen pelvis once patient is more medically stable 6. Heart failure with reduced ejection fraction EF of 25% from March 12, 2015 Patient's lisinopril will be held in light of the hyperkalemia. Continue with her carvedilol Patient is receiving IV fluids and her diuretics are currently being held but would need to be very vigilant in regards to the patient is manifesting signs of heart failure that may need to discontinue or reduce the IV fluids. 7. Advanced care planning: Patient wishes to be full CODE STATUS with endotracheal intubation and PEG tube if necessary. 8. DVT prophylaxis with subcu heparin and SCDs. Code Visit Inpatient E&M: 25178 Init Hosp L3
--- NOTE | 2018-03-08 02:50 | HP.PCM_ITS ---
Problem List (1) Metabolic acidosis Status: Acute (2) Hyperkalemia Status: Acute (3) Syncope Status: Acute (4) FAN (acute kidney injury) Status: Acute History of Present Illness Date of Admission: 03/08/18 Chief Complaint: unresponsiveness The patient is a 52 year old F who was found unresponsive in the bathroom. Prior to that patient was cleaning some epigastric pain that she been dealing with for about a week went to the bathroom and was found unresponsive. Patient was brought to the emergency room and patient was found to have significant electrolyte derangements. Patient was found to have a potassium of 7.6, sodium 129 and a creatinine of 1.9. Lactic acid came back at 12.4. Patient noted to have a wide-complex EKG and did receive bicarbonate as well as IV fluids. Only , patient received calcium chloride and albuterol. Patient's subsequent potassium went down to 6.2. Patient also had a metabolic acidosis on ABG that the pH only improved slightly from 7.15-7.19 after administration of medications. Patient has subsequently been put on bicarbonate drip. Patient and family deny any toxic substance such as antifreeze ingestion. Patient's friend recently on Tuesday patient states that she has not been eating much but states that she has been drinking water. Patient denies any suicidal ideation. [] Past Medical History Past Medical History (Chronic Problems): Chronic Problems (Last Updated 11/28/17 @ 11:06 by Liza Landry) Type 2 diabetes mellitus without complications (Chronic) S/P implantation of automatic cardioverter/defibrillator (AICD) (Chronic) 10/06/2009 @ [facility] Cardiomyopathy in other diseases classified elsewhere (Chronic) Abnormal electrocardiogram (Chronic) Shortness of breath (Chronic) Diffuse large B-cell lymphoma (Chronic) Medical History: Medical History (Last Reviewed 03/08/18 @ 02:42 by Nick Tamez DO) Type 2 diabetes mellitus without complications (Chronic) E11.9 Cardiomyopathy in other diseases classified elsewhere (Chronic) I43 Abnormal electrocardiogram (Chronic) R94.31 Shortness of breath (Chronic) R06.02 Diffuse large B-cell lymphoma (Chronic) C83.30 Bilateral caract surgery Left - 09/28/17; Right - 10/20/17 Decomp laminectomy to remove T6-7 mass Depression F32.9 Fibromyalgia M79.7 Heel spur surgery History of hysteroscopy Z98.890 Left thyroid aspiration 03/17/17 - benign Replacement of generator for debrillator 11/10/17 Sleep apnea G47.30 Thyroid nodule E04.1 Allergies amitriptyline Adverse Reaction (Severe, Verified 11/28/17 11:08) Nightmares naproxen sodium [From Aleve] Adverse Reaction (Severe, Verified 11/28/17 11:08) Swelling Nasal swelling - causing difficulty breathing Sulfa (Sulfonamide Antibiotics) Adverse Reaction (Intermediate, Verified 11:08) Rash Latex, Natural Rubber Adverse Reaction (Mild, Verified 11/28/17 11:08) Other irritates/smith the skin Home Medications: Ambulatory Orders Medication Instructions Recorded Amitriptyline HCl 1 - 2 mg PO QHS PRN 03/07/18 Carvedilol [Coreg] 0.5 tab PO BID 03/07/18 Cholecalciferol (Vitamin D3) 5,000 unit PO DAILY 03/07/18 [Vitamin D3] Clonazepam [Klonopin] 1 mg PO QHS 03/07/18 Digoxin 125 mcg PO DAILY 03/07/18 Folic Acid 1 mg PO BIDCM 03/07/18 Furosemide [Lasix] 40 mg PO DAILY 03/07/18 Gabapentin [Neurontin] 100 mg PO BID 03/07/18 Lamotrigine [Lamictal] 200 mg PO QHS 03/07/18 Levothyroxine [Synthroid] 50 mcg PO MOTUWETHFR 03/07/18 Levothyroxine [Synthroid] 50 mcg PO SUSA 03/07/18 Lisinopril [Zestril] 2.5 mg PO DAILY 03/07/18 Melatonin 3 mg PO DAILY 03/07/18 Metformin HCl [Glucophage] 2 tab PO BID 03/07/18 Omeprazole [Prilosec] 20 mg PO DAILY 03/07/18 Ondansetron HCl [Zofran] 4 mg PO Q8H PRN 03/07/18 Potassium Chloride [Klor-Con M20] 20 meq PO TID 03/07/18 Sennosides [Senokotxtra] 8.6 mg PO DAILY 03/07/18 Simvastatin [Zocor] 10 mg PO QHS 03/07/18 Spironolactone 12.5 mg PO DAILY 03/07/18 Sucralfate [Carafate] 1 gm PO 4X/DAY 03/07/18 Venlafaxine HCl [Venlafaxine HCl 150 mg PO DAILY 03/07/18 ER] Vicodin 5-500 Mg Tablet 5 - 500 mg PO Q6H PRN 03/07/18 Surgical History: Surgical History (Last Reviewed 03/08/18 @ 02:42 by Nick Tamez DO) S/P implantation of automatic cardioverter/defibrillator (AICD) (Chronic) Z95.810 10/06/2009 @ [facility] History of cholecystectomy Z98.890, Z90.49 History of stem cell transplant Z94.84 Surgical History: - - cholecystecomy Smoking Status: Never smoker Tobacco Use: Non-smoker Alcohol: None Drugs: None - *Family History Maternal Family History: Family History (Last Reviewed 03/08/18 @ 02:42 by Nick Tamez DO) Father CVA (cerebral vascular accident) Diabetes Hypertension Mother Hypertension Brother Diabetes Hypertension History Items: Unknown Review of Systems Constitutional: Reports: Anorexia. Denies: Chills, Fever Eyes: Denies: Blurred vision, Double vision HEENT: Denies: Head Aches, Sinus Congestion, Sinus Drainage Cardiovascular: Reports: Edema - In right lower extremity. Denies: Chest Pain, Palpitations Respiratory: Denies: Cough, Shortness of breath at rest, Sputum production Gastrointestinal: Reports: Abdominal Pain. Denies: Nausea, Vomiting Genitourinary: Denies: Dysuria Musculoskeletal: Denies: Joint Pain, Joint Tenderness Skin: Denies: Rash, Wounds Neurological: Denies: Numbness, Tingling, Focal weakness Psychiatric: Denies: Anxiety, Depression Endocrine: Denies: Change in Body Habitus, Heat/ Cold Intolerance Hematologic/ Lymphatic: Denies: Easy Bruising, Easy Bleeding, Hx of blood clot Comment: Otherwise all review systems are negative except for as mentioned above in HPI and review of systems. VTE Information - Inpt Only VTE Present on Admission: No VTE Mechan Device Prophylaxis: SCD's VTE Pharm Prophylaxis ordered?: Yes Patient Problems: Active and Suspected Problems (Last Updated 11/28/17 @ 11:06 by Liza Landry) Metabolic acidosis (Acute) Hyperkalemia (Acute) Syncope (Acute) FAN (acute kidney injury) (Acute) - Physical Exam General: Alert, - - Listless. Afebrile. HEENT: Atraumatic, Normocephalic Oral: Moist Mucosa, No Gingival or Mucosal Lesions/ Ulcerations Neck: No Nodes, Thyroid Normal Size and Texture, - - Right IJ catheter Lungs: Clear to auscultation, Normal air movement, No rhonchi, No wheeze Cardiovascular: Regular rate, Regular Rhythm, Normal S1, Normal S2, No murmurs Abdomen: Bowel Sounds Present, Soft, Non Tender, Non-Distended, No Hepato- splenomegaly Extremities: No edema, No Calf Tenderness Skin: No rashes, No breakdown Musculoskeletal: No Tenderness to Palpation of Joints or Extremities, No Muscle Wasting Neurological: Deep Tendon Reflexes 2+/4 and Symmetrical, - - Sensation intact. Psych/Mental Status: Appropriate, Flat Affect Vital Signs Temp Pulse Resp BP Pulse Ox 37.3 C H 88 24 H 95/66 98 03/07/18 22:19 03/08/18 02:11 03/08/18 02:11 03/08/18 02:11 03/08/18 02:11 Laboratory Tests Past 24 Hrs 03/08/18 03/08/18 01:55 01:55 Urine Color Yellow Urine Clarity Cloudy Urine pH 5.0 Ur Specific [place] 1.025 Urine Protein 100 H Urine Glucose (UA) Normal Urine Ketones 50 H Urine Occult Blood 25 H Urine Nitrite Negative Urine Bilirubin 1 H Urine Urobilinogen 4 H Ur Leukocyte Esterase 100 H Urine RBC 0-5 SEEN Urine WBC 5-10 SEEN Ur Squamous Epith Cells 0-5 SEEN Amorphous Sediment 2+ Urine Bacteria RARE Hyaline Casts 5-10 SEEN Urine Mucus 2+ Urine Opiates Screen POSITIVE H Urine Methadone Screen NEGATIVE Ur Barbiturates Screen NEGATIVE Ur Phencyclidine Scrn NEGATIVE Ur Amphetamines Screen NEGATIVE U Methamphetamin-MDMA NEGATIVE U Benzodiazepines Scrn NEGATIVE Urine Cocaine Screen NEGATIVE U Cannabinoids Screen NEGATIVE Ur Drug Screen Comment Clinical Impression(s) from Imaging Studies Chest X-Ray 03/07/18 22:32 IMPRESSION: Moderate cardiomegaly with no evidence of pulmonary vascular congestion. Electronically Signed: Lamberto Arreola DO at 23:00 EDT , Service support , Chest X-Ray 03/07/18 23:47 IMPRESSION: Right internal jugular central line with the tip at the junction of superior vena cava and right atrium, in its expected location. No pneumothorax. Stable cardiomegaly. Electronically Signed: Jin Rolon MD at 0:12 EDT , Service support , Brain CT 03/08/18 00:27 IMPRESSION: Normal unenhanced CT scan of the brain. Electronically Signed: Jin Rolon MD at 1:58 EDT , Service support , Assessment/Plan All Active Problems (Last Updated 11/28/17 @ 11:06 by Liza Landry) History of non-Hodgkin's lymphoma (Resolved) penitentiary use of drug (Acute) Pain, axillary (Acute) Anemia (Acute) Metabolic acidosis (Acute) Hyperkalemia (Acute) Syncope (Acute) FAN (acute kidney injury) (Acute) 1. Metabolic acidosis * Unclear etiology at this time. Patient and family refused any kind of methanol nor ethylene glycol ingestion. The patient denies suicide attempt. * I suspect this may relate with the patient's renal failure but it is unclear given the degree of metabolic acidosis that she is sustained. * Will continue with the bicarbonate drip as well as IV fluids for now though would need to be cautious with IV fluid given patient's history of heart failure with reduced ejection fraction * Will repeat ABG this morning as well as BMP this morning as well. 2. Hyperkalemia * Improved with correction of the metabolic acidosis and would anticipate improved potassium levels with correction of the metabolic acidosis. * Patient did have EKG changes noted on EKG which have improved with correction of metabolic acidosis. * Given these EKGs findings patient will be admitted to the ICU for more intense monitoring. * I suspect is related to patient's renal failure but also her concomitant spironolactone usage. 3. Acute kidney injury * Patient had a creatinine of 1.17 from February 23 of this year and it was 1.9 upon admission today. I feel that this is likely prerenal in etiology and would anticipate improvements * Will hold diuretics for now and reassess. 4. Lactic acidosis * Likely just related with a metabolic acidosis but will follow that up. 5. Abdominal pain * Patient with some epigastric pain. Does not strike me as a surgical abdomen * Will check a flat plate x-ray. * If abdominal pain is ongoing and x-rays unremarkable would consider a CAT scan of the abdomen pelvis once patient is more medically stable 6. Heart failure with reduced ejection fraction * EF of 25% from March 12, 2015 * Patient's lisinopril will be held in light of the hyperkalemia. Continue with her carvedilol * Patient is receiving IV fluids and her diuretics are currently being held but would need to be very vigilant in regards to the patient is manifesting signs of heart failure that may need to discontinue or reduce the IV fluids. 7. Advanced care planning: Patient wishes to be full CODE STATUS with endotracheal intubation and PEG tube if necessary. 8. DVT prophylaxis with subcu heparin and SCDs. Code Visit Inpatient E&M: 40236 Init Hosp L3
--- NOTE | 2018-03-08 02:59 | RAD_ITS ---
STUDY: X-RAY - ABDOMEN/PELVIS REASON FOR EXAM: Female, 52 years old. Abdominal pain for one week. TECHNIQUE: AP supine abdomen. COMPARISON: [employer] view CT abdomen and pelvis June 15, 2017 FINDINGS: Normal visualized lung bases. There is an unremarkable bowel gas pattern. There is no demonstrated free abdominal air. The visualized liver, spleen and kidneys are grossly normal in size and morphology. Normal soft tissue structures. Normal visualized osseous structures. Surgical clips right upper quadrant. RAD/Abdomen Single View (Portable) IMPRESSION: Nonspecific bowel gas pattern without evidence of obstruction. Electronically Signed: Jin Rolon MD at 4:14 EDT , Service support ,
[2018-03-08 04:05] LABS: Reflex Lactate? Y
[2018-03-08 04:24] LABS: Anion Gap 17 (5-15); BUN 30 mg/dL (7-18); BUN/Creat Ratio 18.1 RATIO (10-20); Calcium,Total 8.2 mg/dL (8.5-10.1); Chloride 105 mmol/L (98-107); Creatinine, Serum 1.66 mg/dL (0.55-1.02); EST Glomerular Filtration Rate 34 mL/min (>60); Est Glom Filt Rate - Afr Amer 41 mL/min (>60); Glucose 194 mg/dL (74-106); Potassium 5.8 mmol/L (3.5-5.1); Sodium Level 139 mmol/L (136-145)
[2018-03-08 04:48] LABS: Hematocrit 35.1 % (37-47); Hemoglobin 10.8 g/dl (12.0-15.0); Mean Corp Hgb Conc 30.8 g/gl (32-36); Mean Corpuscular Hgb 31.7 pg (27.0-32.0); Mean Corpuscular Volume 102.9 fL (81-99); Platelet Count 158 K/mm3 (150-450); RBC Distribution Width CV 18.8 % (11.6-14.6); RBC Distribution Width SD 68.1 fl (35.1-43.9); Red Blood Count 3.41 M/mm3 (4.2-5.4); White Blood Count 7.8 K/mm3 (4.4-11.0)
[2018-03-08 04:51] LABS: Scan Indicated on CBC? Y/N YES- FLAGS NOTED
[2018-03-08 04:58] LABS: M R Staph aureus DNA By PCR POSITIVE (Negative); Probe Check PASS
[2018-03-08 05:09] LABS: Lactic Acid 9.2 mmol/L (0.4-2.0)
[2018-03-08 05:20] LABS: Differential Comment SCANNED
[2018-03-08] MEDS: Levothyroxine 50 MCG Tablet PO (05:41)
[2018-03-08 06:21] LABS: Blood Gas Specimen Type VEN; O2 Delivery Device Nasal Can; SITE OTHER; Time Given 500; VBG BASE EXCESS -12 mmol/L (-1.0-3.5); VBG Bicarbonate 15 mmol/L (22-26); VBG Oxygen Content 16 mmol/L (23-33); VBG PO2 32 mmHg (25-40); VBG SO2 53 % (50-70); VBG pH 7.26 (7.32-7.42)
--- NOTE | 2018-03-08 08:01 | PCM.PN.HOSP ---
Patient Problems: Active and Suspected Problems (Last Reviewed 03/08/18 @ 02:42 by Nick Tamez DO) Metabolic acidosis (Acute) Hyperkalemia (Acute) Syncope (Acute) FAN (acute kidney injury) (Acute) Subjective: Patient was seen and examined. Admitted last night with severe metabolic acidosis with lactic acidosis. She is alert oriented ?3. Denies any new complaints. Denies taking any drugs. Says she has not been feeling well. Cannot remember events leading to this admission with this episode of unresponsiveness. Admits to chest pain and dizziness prior to unresponsiveness. Denies any chest pain now, fever or chills. Vitals/I&O's: Vital Signs Temp Pulse Resp BP Pulse Ox 97.7 F L 90 16 97/64 97 03/08/18 07:00 03/08/18 07:00 03/08/18 07:00 03/08/18 07:00 03/08/18 07:00 Oxygen Flow Rate (L/min) 2 Oxygen Delivery Method Nasal Cannula Weight: 102 kg Body Mass Index (BMI) 37.4 Intake and Output for Last 24 Hours 03/06/18 03/07/18 03/08/18 23:59 23:59 23:59 Intake Total 565.8 / 565.8 Output Total 150 / 150 Balance 415.8 / 415.8 General: Alert, Oriented x3, Cooperative, No apparent distress, - - Obese, pale HEENT: Atraumatic, PERRLA, EOMI, Normocephalic Oral: Moist Mucosa Neck: Supple, - - Right IJ central assess Lungs: Clear to auscultation, Normal air movement, Diminished - Diminished in the lung bases Cardiovascular: Regular rate, Regular Rhythm, Normal S1, Normal S2, No murmurs Abdomen: Bowel Sounds Present, Soft, Non Tender, Non-Distended, No Hepato-splenomegaly, - - Mendez catheter in situ, urine appears concentrated Extremities: No edema Skin: No rashes, No breakdown Musculoskeletal: No Tenderness to Palpation of Joints or Extremities Lymphatic: No Cervical, Supraclavicular, or Inguinal Adenopathy Neurological: Cranial nerves II-XII grossly intact, Motor Exam 5/5 strength throughout Psych/Mental Status: Normal Affect, Appropriate Laboratory Results 03/08/18 03:00: MRSA (PCR) POSITIVE H 03/08/18 04:02: WBC 7.8, RBC 3.41 L, Hgb 10.8 L, Hct 35.1 L, MCV 102.9 H, MCH 31.7, MCHC 30.8 L, RDW 18.8 H, RDW Differential 68.1 H, Plt Count 158, MPV 11.0, Differential Comment SCANNED 03/08/18 04:02: Sodium 139, Potassium 5.8 H, Chloride 105, Carbon Dioxide 17.0 L, Anion Gap 17 H, BUN 30 H, Creatinine 1.66 H, Est GFR (MDRD) Af Amer 41 L, Est GFR (MDRD) Non-Af 34 L, BUN/Creatinine Ratio 18.1, Glucose 194 H, Calcium 8.2 L 03/08/18 04:02: Lactic Acid 9.2 H* 03/08/18 04:54: Specimen Type LOUISA, Sample Site OTHER, VBG pH 7.26 L, VBG pO2 32, VBG O2 Sat (Calc) 53, VBG O2 Content 16 L, VBG Base Excess -12 L, POC Mix VBG pCO2 Pt Tmp 34.0 L, O2 Delivery Device Nasal Can, Liter Flow 2.0, Blood Gas Notified Whom HOSP MD, Blood Gas Notified Time 500 Current Medications Acetaminophen (Tylenol) 650 mg PO Q6H PRN PRN PRN Reason: Mild Pain (1-3)/Temp > 100.7 F Carvedilol (Coreg) mg PO BID [facility] Chlorhexidine Gluconate () 1 each TOPICAL DAILY [facility] Clonazepam (Klonopin) 1 mg PO QHS [facility] Heparin Sodium (Porcine) (Heparin Na) 5,000 unit SC Q12 [facility] Sodium Bicarbonate 150 meq/ (Dextrose) 1,150 mls @ 150 mls/hr IV .Q7H40M [facility] Last Admin: 03/08/18 01:46 Dose: 150 mls/hr Sodium Chloride () 500 mls @ 999 mls/hr IV .Q31M ONE Stop: 03/08/18 08:09 Sodium Chloride () 1,000 mls @ 100 mls/hr IV .Q10H [facility] Lamotrigine (Lamictal) 200 mg PO QHS [facility] Levothyroxine Sodium (Synthroid) 50 mcg PO MoTuWeThFr@0600 [facility] Last Admin: 03/08/18 05:41 Dose: 50 mcg Levothyroxine Sodium (Synthroid) 50 mcg PO SuSa@0600 [facility] Magnesium Hydroxide (Milk Of Magnesia) 30 ml PO DAILY PRN PRN PRN Reason: Constipation Nutritional Formula (Lactose Free) (Glucerna Shake) 120 ml PO 4X/DAY [facility] Ondansetron HCl (Zofran) 4 mg IV Q8H PRN PRN PRN Reason: NAUSEA Ondansetron HCl (Zofran Odt) 4 mg PO Q8H PRN PRN PRN Reason: NAUSEA/VOMITING Medical Necessity - Tobacco Use Smoking Status: Never smoker Tobacco Use: Non-smoker Assessment/Plan All Active Problems (Last Reviewed 03/08/18 @ 02:42 by Nick Tamez DO) History of non-Hodgkin's lymphoma (Resolved) [facility] use of drug (Acute) Pain, axillary (Acute) Anemia (Acute) Metabolic acidosis (Acute) Hyperkalemia (Acute) Syncope (Acute) FAN (acute kidney injury) (Acute) 52 year old female with past medical history of type 2 diabetes on metformin and insulin, hypertension, nonischemic cardiomyopathy, EF of 25% in 2014, status post AICD implantation, history of known non-hodgkins lymphoma admitted last night with unresponsiveness. 1. Acute metabolic encephalopathy secondary to #2, resolved, patient is alert and oriented ?3, continue to monitor, will ask for AICD interrogation 2. Metabolic acidosis with lactic acidosis, likely secondary to unresponsiveness and also to metformin use as well as potential/acute kidney injury, less likely due to sepsis, started on bicarbonate drip, will repeat BMP in 2-3 hours. 3. Shock, unclear etiology, history of nonischemic cardiomyopathy, patient appears improved from description of patient from H&P, she complained of some chest discomfort prior to being unresponsive, will trend troponins, 2D echo, fluid bolus 500mls x 1, will continue to monitor vitals. 4. Elevated troponin on arrival of 0.081, likely secondary to demand ischemia, underlining known ischemic cardiomyopathy with EF of 25%, history of AICD, will trend troponins. Will repeat 2d-echo 5. Hyperkalemia, improving, down to 5.8, will repeat BMP in a couple of hours, spironolactone is on hold. 6. Acute kidney injury, prerenal, baseline creatinine of 1.17 about a month ago, improving, will continue to monitor, continue to hold diuretics 7. Abdominal pain, cough, abdominal KUB shows nonspecific bowel pattern 6. Code Status: Full code. 7. DVT prophylaxis with subcu heparin Code Visit Inpatient E&M: 95295 Subs Hosp L3
--- NOTE | 2018-03-08 08:03 | ECHOD_ITS ---
Reason For Study: Syncope/Near Syncope Procedure This was a 2D Doppler, Color Flow transthoracic echocardiogram. Did not use Definity due to increased PAP. Exam performed portable in ICU/CCU. Left Ventricle Moderately dilated left ventricle. Severe global left ventricular systolic dysfunction. The estimated ejection fraction is 15 %. Paced septal motion. Transmitral diastolic flow velocities suggest severe (stage 3) diastolic dysfunction. There is severe global hypokinesis of the left ventricle. Right Ventricle Normal RV size. ICD or pacer leads identified within the right ventricle. Normal systolic function. Atria Normal left atrium. Normal right atrium. Mitral Valve Normal mitral valve. Moderately severe (3+) eccentric mitral valve insufficiency. Tricuspid Valve Normal tricuspid valve. Moderate (2+) tricuspid valve insufficiency. Pulmonary artery systolic pressure is 53 mmHg. Moderate pulmonary hypertension. Aortic Valve Normal aortic valve. Trisinus/trileaflet aortic valve. Pulmonic Valve Normal pulmonic valve. Mild (1+) pulmonic valve insufficiency. Great Vessels Normal aortic root. The pulmonary artery is normal size. The inferior vena cava is dilated. Pericardium/Pleural Small pericardial effusion. MMode/2D Measurements & Calculations LVIDd: 6.2 cm IVSd: 0.89 cm Ao root diam: 2.9 cm LVIDs: 5.9 cm LVPWd: 0.91 cm RVDd: 4.6 cm FS: 4.8 % LAV(MOD-bp): 55.9 ml EDV(MOD-sp4): 162.3 ml SV(MOD-sp4): 23.4 ml LAV(MOD-bp) Indexed: 25.4 ml/m2 ESV(MOD-sp4): 138.9 ml LAV(MOD-sp2): 49.4 ml EF(MOD-sp4): 14.4 % LAV(MOD-sp4): 57.1 ml LA A4 area: 20.1 cm2 RA A4 area: 19.2 cm2 Doppler Measurements & Calculations MV E max odell: 112.5 cm/sec Lat Peak E' Odell: 3.4 cm/sec Med Peak E' Odell: 2.5 cm/sec MV A max odell: 56.1 cm/sec E/E' lat: 32.9 E/E' med: 44.7 MV E/A: 2.0 Ao V2 max: 92.4 cm/sec LV V1 max: 78.3 cm/sec PA V2 max: 52.8 cm/sec Ao max P.4 mmHg LV V1 max P.5 mmHg Ao V2 mean: 73.8 cm/sec Ao mean P.3 mmHg Ao V2 VTI: 12.5 cm PI end-d odell: 160.0 cm/sec TR max odell: 323.2 cm/sec TR max P.8 mmHg Interpretation Summary Moderately dilated left ventricle. Severe global left ventricular systolic dysfunction. The estimated ejection fraction is 15 %. Paced septal motion. Transmitral diastolic flow velocities suggest severe (stage 3) diastolic dysfunction Moderately severe (3+) eccentric mitral valve insufficiency. Pulmonary artery systolic pressure is 53 mmHg. Moderate (2+) tricuspid valve insufficiency. Small pericardial effusion. Compared to prior study, changes are noted. Ordering Physician: Maricarmen Nguyen Referring Physician: María Elena Montes De Oca Performed By: Monica Todd, GIL, RVT
[2018-03-08] MEDS: Ondansetron 4 MG/2 ML Vial IV (08:05)
[2018-03-08 08:06] LABS: Reflex Lactate? Y
[2018-03-08] MEDS: CHLORHEXIDINE GLUC 2% CLOTH 1 EACH TOWELETTE TOPICAL (08:12)
[2018-03-08] MEDS: Insulin Lispro 100 UNIT/ML INSULN.PEN SC ×2 (08:14→11:18)
--- NOTE | 2018-03-08 08:17 | PN_ITS ---
Patient Problems: Active and Suspected Problems (Last Reviewed 03/08/18 @ 02:42 by Nick Tamez DO) Metabolic acidosis (Acute) Hyperkalemia (Acute) Syncope (Acute) FAN (acute kidney injury) (Acute) Subjective: Patient was seen and examined. Admitted last night with severe metabolic acidosis with lactic acidosis. She is alert oriented ?3. Denies any new complaints. Denies taking any drugs. Says she has not been feeling well. Cannot remember events leading to this admission with this episode of unresponsiveness. Admits to chest pain and dizziness prior to unresponsiveness. Denies any chest pain now, fever or chills. Vitals/I&O's: Vital Signs Temp Pulse Resp BP Pulse Ox 97.7 F L 90 16 97/64 97 03/08/18 07:00 03/08/18 07:00 03/08/18 07:00 03/08/18 07:00 03/08/18 07:00 Oxygen Flow Rate (L/min) 2 Oxygen Delivery Method Nasal Cannula Weight: 102 kg Body Mass Index (BMI) 37.4 Intake and Output for Last 24 Hours 03/06/18 03/07/18 03/08/18 23:59 23:59 23:59 Intake Total 565.8 / 565.8 Output Total 150 / 150 Balance 415.8 / 415.8 General: Alert, Oriented x3, Cooperative, No apparent distress, - - Obese, pale HEENT: Atraumatic, PERRLA, EOMI, Normocephalic Oral: Moist Mucosa Neck: Supple, - - Right IJ central assess Lungs: Clear to auscultation, Normal air movement, Diminished - Diminished in the lung bases Cardiovascular: Regular rate, Regular Rhythm, Normal S1, Normal S2, No murmurs Abdomen: Bowel Sounds Present, Soft, Non Tender, Non-Distended, No Hepato- splenomegaly, - - Mendez catheter in situ, urine appears concentrated Extremities: No edema Skin: No rashes, No breakdown Musculoskeletal: No Tenderness to Palpation of Joints or Extremities Lymphatic: No Cervical, Supraclavicular, or Inguinal Adenopathy Neurological: Cranial nerves II-XII grossly intact, Motor Exam 5/5 strength throughout Psych/Mental Status: Normal Affect, Appropriate Laboratory Results 03/08/18 03:00: MRSA (PCR) POSITIVE H 03/08/18 04:02: WBC 7.8, RBC 3.41 L, Hgb 10.8 L, Hct 35.1 L, MCV 102.9 H, MCH 31.7, MCHC 30.8 L, RDW 18.8 H, RDW Differential 68.1 H, Plt Count 158, MPV 11.0 , Differential Comment SCANNED 03/08/18 04:02: Sodium 139, Potassium 5.8 H, Chloride 105, Carbon Dioxide 17.0 L , Anion Gap 17 H, BUN 30 H, Creatinine 1.66 H, Est GFR (MDRD) Af Amer 41 L, Est GFR (MDRD) Non-Af 34 L, BUN/Creatinine Ratio 18.1, Glucose 194 H, Calcium 8.2 L 03/08/18 04:02: Lactic Acid 9.2 H* 03/08/18 04:54: Specimen Type LOUISA, Sample Site OTHER, VBG pH 7.26 L, VBG pO2 32 , VBG O2 Sat (Calc) 53, VBG O2 Content 16 L, VBG Base Excess -12 L, POC Mix VBG pCO2 Pt Tmp 34.0 L, O2 Delivery Device Nasal Can, Liter Flow 2.0, Blood Gas Notified Whom HOSP MD, Blood Gas Notified Time 500 Current Medications Acetaminophen (Tylenol) 650 mg PO Q6H PRN PRN PRN Reason: Mild Pain (1-3)/Temp > 100.7 F Carvedilol (Coreg) mg PO BID [facility] Chlorhexidine Gluconate () 1 each TOPICAL DAILY [facility] Clonazepam (Klonopin) 1 mg PO QHS [facility] Heparin Sodium (Porcine) (Heparin Na) 5,000 unit SC Q12 [facility] Sodium Bicarbonate 150 meq/ (Dextrose) 1,150 mls @ 150 mls/hr IV .Q7H40M [facility] Last Admin: 03/08/18 01:46 Dose: 150 mls/hr Sodium Chloride () 500 mls @ 999 mls/hr IV .Q31M ONE Stop: 03/08/18 08:09 Sodium Chloride () 1,000 mls @ 100 mls/hr IV .Q10H [facility] Lamotrigine (Lamictal) 200 mg PO QHS [facility] Levothyroxine Sodium (Synthroid) 50 mcg PO MoTuWeThFr@0600 [facility] Last Admin: 03/08/18 05:41 Dose: 50 mcg Levothyroxine Sodium (Synthroid) 50 mcg PO SuSa@0600 [facility] Magnesium Hydroxide (Milk Of Magnesia) 30 ml PO DAILY PRN PRN PRN Reason: Constipation Nutritional Formula (Lactose Free) (Glucerna Shake) 120 ml PO 4X/DAY [facility] Ondansetron HCl (Zofran) 4 mg IV Q8H PRN PRN PRN Reason: NAUSEA Ondansetron HCl (Zofran Odt) 4 mg PO Q8H PRN PRN PRN Reason: NAUSEA/VOMITING Medical Necessity - Tobacco Use Smoking Status: Never smoker Tobacco Use: Non-smoker Assessment/Plan All Active Problems (Last Reviewed 03/08/18 @ 02:42 by Nick Tamez DO) History of non-Hodgkin's lymphoma (Resolved) [facility] use of drug (Acute) Pain, axillary (Acute) Anemia (Acute) Metabolic acidosis (Acute) Hyperkalemia (Acute) Syncope (Acute) FAN (acute kidney injury) (Acute) 52 year old female with past medical history of type 2 diabetes on metformin and insulin, hypertension, nonischemic cardiomyopathy, EF of 25% in 2014, status post AICD implantation, history of known non-hodgkins lymphoma admitted last night with unresponsiveness. 1. Acute metabolic encephalopathy secondary to #2, resolved, patient is alert and oriented ?3, continue to monitor, will ask for AICD interrogation 2. Metabolic acidosis with lactic acidosis, likely secondary to unresponsiveness and also to metformin use as well as potential/acute kidney injury, less likely due to sepsis, started on bicarbonate drip, will repeat BMP in 2-3 hours. 3. Shock, unclear etiology, history of nonischemic cardiomyopathy, patient appears improved from description of patient from H&P, she complained of some chest discomfort prior to being unresponsive, will trend troponins, 2D echo, fluid bolus 500mls x 1, will continue to monitor vitals. 4. Elevated troponin on arrival of 0.081, likely secondary to demand ischemia, underlining known ischemic cardiomyopathy with EF of 25%, history of AICD, will trend troponins. Will repeat 2d-echo 5. Hyperkalemia, improving, down to 5.8, will repeat BMP in a couple of hours, spironolactone is on hold. 6. Acute kidney injury, prerenal, baseline creatinine of 1.17 about a month ago , improving, will continue to monitor, continue to hold diuretics 7. Abdominal pain, cough, abdominal KUB shows nonspecific bowel pattern 6. Code Status: Full code. 7. DVT prophylaxis with subcu heparin Code Visit Inpatient E&M: 01639 Subs Hosp L3
[2018-03-08 08:25] LABS: Bedside Glucose 211 mg/dL (70-110)
--- NOTE | 2018-03-08 08:30 | PCM.CON.CC ---
Problem List (1) History of non-Hodgkin's lymphoma Status: Resolved (2) Anemia Status: Acute Qualifiers: Anemia type: unspecified type Qualified Code(s): D64.9 - Anemia, unspecified (3) Metabolic acidosis Status: Acute (4) Hyperkalemia Status: Acute (5) Syncope Status: Acute (6) FAN (acute kidney injury) Status: Acute (7) Type 2 diabetes mellitus without complications Status: Chronic (8) S/P implantation of automatic cardioverter/defibrillator (AICD) Status: Chronic Comment: 10/06/2009 @ [facility] (9) Cardiomyopathy in other diseases classified elsewhere Status: Chronic (10) Diffuse large B-cell lymphoma Status: Chronic Qualifiers: Lymphoma site: extranodal excluding spleen and other solid organs Qualified Code(s): C83.39 - Diffuse large B-cell lymphoma, extranodal and solid organ sites Reason for Consult Date of Consultation: 03/08/18 Reason for Consultation: Metabolic acidosis History of Present Illness: The patient is a 52 year old F, with past medical history listed below, who was brought to [facility] on 03/08/2018 after being found unresponsive in the bathroom. Patient reportedly was noted to be hypoglycemic by EMS with a blood sugar of 30 and was given oral glucose. Patient had been complaining of epigastric pain and was recently treated with Carafate. Patient reportedly had a syncopal event while trying to go to the bathroom. Patient reportedly has been under a lot of stress lately, but there is no suicidal or homicidal ideation. Patient does have a history of non-Hodgkin's lymphoma, diabetes, nonischemic cardiomyopathy (EF 25%) and anemia. On presentation, patient was normotensive and 100% on room air. Patient was noted to be significantly tachypneic at 33 breaths per minute. Laboratory workup showed a significant lactic acidosis of 12.4 without ketones. Digoxin level was noted at 0.32. Potassium was elevated at 7.6 and creatinine at 1.9. Patient was placed on a bicarb drip and then transferred to the intensive care unit. Overnight, patient had multiple ABG showing consistently improving acidosis. Patient is also had improving lactates. This morning, patient reports significant improvement in dyspnea. However, patient is continuing to report nausea and epigastric discomfort. Patient does report that she has not been eating lunch, but does believe she has been drinking enough water. Patient states that she has been severely depressed secondary to a friend's recent passing on Tuesday. Review of systems otherwise negative ?10 systems. Past Medical History Past Medical History (Chronic Problems): Chronic Problems (Last Reviewed 03/08/18 @ 02:42 by Nick Tamez DO) Type 2 diabetes mellitus without complications (Chronic) S/P implantation of automatic cardioverter/defibrillator (AICD) (Chronic) 10/06/2009 @ [facility] Cardiomyopathy in other diseases classified elsewhere (Chronic) Abnormal electrocardiogram (Chronic) Shortness of breath (Chronic) Diffuse large B-cell lymphoma (Chronic) Medical History: Medical History (Last Reviewed 03/08/18 @ 02:42 by Nick Tamez DO) Type 2 diabetes mellitus without complications (Chronic) E11.9 Cardiomyopathy in other diseases classified elsewhere (Chronic) I43 Abnormal electrocardiogram (Chronic) R94.31 Shortness of breath (Chronic) R06.02 Diffuse large B-cell lymphoma (Chronic) C83.30 Bilateral caract surgery Left - 09/28/17; Right - 10/20/17 Decomp laminectomy to remove T6-7 mass Depression F32.9 Fibromyalgia M79.7 Heel spur surgery History of hysteroscopy Z98.890 Left thyroid aspiration 03/17/17 - benign Replacement of generator for debrillator 11/10/17 Sleep apnea G47.30 Thyroid nodule E04.1 Allergies amitriptyline Adverse Reaction (Severe, Verified 11/28/17 11:08) Nightmares naproxen sodium [From Aleve] Adverse Reaction (Severe, Verified 11/28/17 11:08) Swelling Nasal swelling - causing difficulty breathing Sulfa (Sulfonamide Antibiotics) Adverse Reaction (Intermediate, Verified 11/28/17 11:08) Rash Latex, Natural Rubber Adverse Reaction (Mild, Verified 11/28/17 11:08) Other irritates/smith the skin Home Medications: Ambulatory Orders Medication Instructions Recorded Amitriptyline HCl 1 - 2 mg PO QHS PRN 03/07/18 Carvedilol [Coreg] 0.5 tab PO BID 03/07/18 Cholecalciferol (Vitamin D3) 5,000 unit PO DAILY 03/07/18 [Vitamin D3] Clonazepam [Klonopin] 1 mg PO QHS 03/07/18 Digoxin 125 mcg PO DAILY 03/07/18 Folic Acid 1 mg PO BIDCM 03/07/18 Furosemide [Lasix] 40 mg PO DAILY 03/07/18 Gabapentin [Neurontin] 100 mg PO BID 03/07/18 Lamotrigine [Lamictal] 200 mg PO QHS 03/07/18 Levothyroxine [Synthroid] 50 mcg PO MOTUWETHFR 03/07/18 Levothyroxine [Synthroid] 50 mcg PO SUSA 03/07/18 Lisinopril [Zestril] 2.5 mg PO DAILY 03/07/18 Melatonin 3 mg PO DAILY 03/07/18 Metformin HCl [Glucophage] 2 tab PO BID 03/07/18 Omeprazole [Prilosec] 20 mg PO DAILY 03/07/18 Ondansetron HCl [Zofran] 4 mg PO Q8H PRN 03/07/18 Potassium Chloride [Klor-Con M20] 20 meq PO TID 03/07/18 Sennosides [Senokotxtra] 8.6 mg PO DAILY 03/07/18 Simvastatin [Zocor] 10 mg PO QHS 03/07/18 Spironolactone 12.5 mg PO DAILY 03/07/18 Venlafaxine HCl [Venlafaxine HCl 150 mg PO DAILY 03/07/18 ER] Vicodin 5-500 Mg Tablet 5 - 500 mg PO Q6H PRN 03/07/18 Surgical History: Surgical History (Last Reviewed 03/08/18 @ 02:42 by Nick Tamez DO) S/P implantation of automatic cardioverter/defibrillator (AICD) (Chronic) Z95.810 10/06/2009 @ [facility] History of cholecystectomy Z98.890, Z90.49 History of stem cell transplant Z94.84 Surgical History: - - cholecystecomy Smoking Status: Never smoker Tobacco Use: Non-smoker Alcohol: None Drugs: None - *Family History Maternal Family History: Family History (Last Reviewed 03/08/18 @ 02:42 by Nick Tamez DO) Father CVA (cerebral vascular accident) Diabetes Hypertension Mother Hypertension Brother Diabetes Hypertension History Items: Unknown Review of Systems Comment: See HPI Patient Problems: Active and Suspected Problems (Last Reviewed 03/08/18 @ 02:42 by Nick Tamez DO) Metabolic acidosis (Acute) Hyperkalemia (Acute) Syncope (Acute) FAN (acute kidney injury) (Acute) Objective: All imaging was personally reviewed. Chest x-ray shows central line in appropriate position. KUB shows a nonspecific bowel gas pattern. CT of the head was unremarkable. - Physical Exam General: Alert, Oriented x3, Cooperative, - - Appears uncomfortable, but no accessory muscles are noted. Obese. HEENT: Atraumatic, PERRLA, EOMI, Normocephalic, - - Slightly pale conjunctivae Oral: No Gingival or Mucosal Lesions/ Ulcerations, Dry Mucosa Neck: Supple, No JVD, No Nodes, Trachea Midline, - - Somewhat limited secondary to body habitus. Central line appears clean, dry and intact. Lungs: No rhonchi, No wheeze, No rales, Diminished, - - Symmetric expansion. No dullness to percussion. Cardiovascular: Regular rate, Regular Rhythm, Normal S1, Normal S2, No murmurs, No rub noted, No Gallop Abdomen: Bowel Sounds Present, Soft, Non Tender, Non-Distended, Obese Extremities: No clubbing, No cyanosis, No edema Skin: No rashes, No breakdown Musculoskeletal: No Tenderness to Palpation of Joints or Extremities Lymphatic: No Cervical, Supraclavicular, or Inguinal Adenopathy Neurological: Cranial nerves II-XII grossly intact, Neuro grossly intact Psych/Mental Status: Appropriate, Flat Affect Vital Signs Temp Pulse Resp BP Pulse Ox 37.3 C 94 19 H 89/75 L 99 03/08/18 08:00 03/08/18 08:00 03/08/18 08:00 03/08/18 08:00 03/08/18 08:00 Oxygen Flow Rate (L/min) 2 Oxygen Delivery Method Room Air Weight: 102 kg Body Mass Index (BMI) 37.4 Intake and Output for Last 24 Hours 03/06/18 03/07/18 03/08/18 23:59 23:59 23:59 Intake Total 565.8 / 565.8 Output Total 150 / 150 Balance 415.8 / 415.8 Laboratory Tests Past 24 Hrs 03/08/18 03/08/18 03/08/18 03:00 04:02 04:02 WBC 7.8 RBC 3.41 L Hgb 10.8 L Hct 35.1 L MCV 102.9 H MCH 31.7 MCHC 30.8 L RDW 18.8 H RDW Differential 68.1 H Plt Count 158 MPV 11.0 Differential Comment SCANNED Specimen Type Sample Site VBG pH VBG pO2 VBG O2 Sat (Calc) VBG O2 Content VBG Base Excess POC Mix VBG pCO2 Pt Tmp O2 Delivery Device Liter Flow Blood Gas Notified Whom Blood Gas Notified Time Sodium 139 Potassium 5.8 H Chloride 105 Carbon Dioxide 17.0 L Anion Gap 17 H BUN 30 H Creatinine 1.66 H Est GFR (MDRD) Af Amer 41 L Est GFR (MDRD) Non-Af 34 L BUN/Creatinine Ratio 18.1 Glucose 194 H Lactic Acid Calcium 8.2 L Troponin I Digoxin MRSA (PCR) POSITIVE H 03/08/18 03/08/18 03/08/18 04:02 04:02 04:54 WBC RBC Hgb Hct MCV MCH MCHC RDW RDW Differential Plt Count MPV Differential Comment Specimen Type LOUISA Sample Site OTHER VBG pH 7.26 L VBG pO2 32 VBG O2 Sat (Calc) 53 VBG O2 Content 16 L VBG Base Excess -12 L POC Mix VBG pCO2 Pt Tmp 34.0 L O2 Delivery Device Nasal Can Liter Flow 2.0 Blood Gas Notified Whom [facility] MD Blood Gas Notified Time 500 Sodium Potassium Chloride Carbon Dioxide Anion Gap BUN Creatinine Est GFR (MDRD) Af Amer Est GFR (MDRD) Non-Af BUN/Creatinine Ratio Glucose Lactic Acid 9.2 H* Calcium Troponin I Pending Digoxin MRSA (PCR) 03/08/18 07:55 WBC RBC Hgb Hct MCV MCH MCHC RDW RDW Differential Plt Count MPV Differential Comment Specimen Type Sample Site VBG pH VBG pO2 VBG O2 Sat (Calc) VBG O2 Content VBG Base Excess POC Mix VBG pCO2 Pt Tmp O2 Delivery Device Liter Flow Blood Gas Notified Whom Blood Gas Notified Time Sodium Potassium Chloride Carbon Dioxide Anion Gap BUN Creatinine Est GFR (MDRD) Af Amer Est GFR (MDRD) Non-Af BUN/Creatinine Ratio Glucose Lactic Acid Calcium Troponin I Digoxin Pending MRSA (PCR) POC Glucose 03/08/18 07:50 POC Glucose 211 H Clinical Impression(s) from Imaging Studies Chest X-Ray 03/07/18 22:32 IMPRESSION: Moderate cardiomegaly with no evidence of pulmonary vascular congestion. Electronically Signed: Lamberto Arreola DO at 23:00 EDT , Service support , Chest X-Ray 03/07/18 23:47 IMPRESSION: Right internal jugular central line with the tip at the junction of superior vena cava and right atrium, in its expected location. No pneumothorax. Stable cardiomegaly. Electronically Signed: Jin Rolon MD at 0:12 EDT , Service support , Brain CT 03/08/18 00:27 IMPRESSION: Normal unenhanced CT scan of the brain. Electronically Signed: Jin Rolon MD at 1:58 EDT , Service support , KUB X-Ray 03/08/18 02:59 IMPRESSION: Nonspecific bowel gas pattern without evidence of obstruction. Electronically Signed: Jin Rolon MD at 4:14 EDT , Service support , Assessment/Plan Active and Suspected Problems (Last Reviewed 03/08/18 @ 02:42 by Nick Tamez DO) Metabolic acidosis (Acute) Hyperkalemia (Acute) Syncope (Acute) FAN (acute kidney injury) (Acute) RECOMMENDATIONS: 1. Avoid fluid boluses of possible 2. Use minimal supplemental oxygen 3. Repeat BMP and lactate at 11 AM 4. Recheck LFTs tomorrow 5. Hold metformin, sliding scale insulin IMPRESSIONS: 1. Acute respiratory insufficiency secondary to lactic acidosis Clinical suspicion for lactic acidosis secondary to metformin given new onset renal failure. Patient's respiratory status has greatly improved since presentation. No repeat ABG at this time. We will recheck chemistries and lactic acid at 11 AM. Wean oxygen to room air. This will allow for evaluation of the development of pulmonary edema secondary to congestive heart failure. 2. Acute on chronic kidney disease stage III Clinical suspicion for dehydration leading to elevation of creatinine decreased clearance. Will hold diuretics for now. Patient is getting a bicarbonate drip, but this can likely be discontinued following chemistries at 11 AM. Patient is nauseous. Would avoid boluses if possible as patient would be at high risk for development of pulmonary edema. Patient does not have an acute abdomen at this time. Liver function shows slight elevation of bilirubin, but pancreatic enzymes are unremarkable. 3. Chronic systolic congestive heart failure Last known ejection fraction of 25% in 2014. Patient does have hyperkalemia, likely secondary to lactic acidosis, so DIAMOND inhibitor has been held. Patient is on her carvedilol. Will need to monitor closely with fluids as patient will be at risk for the development of pulmonary edema. Continue with telemetry. Digoxin levels have been sent. Patient does have a lower systolic blood pressure, but map is acceptable at this time. Would not recommend fluid boluses. 4. Obesity/non-Hodgkin's lymphoma/fibromyalgia/sleep apnea/diabetes mellitus type 2 Complicates care, management, recovery and prognosis. Will hold on diabetic medications at this time. Sliding scale insulin if needed. Addendum 11:27 AM Patient continues to have hypotension with decreased responsiveness. Some concern for excessive fluids causing problems with congestive heart failure. Patient will be initiated on pressor therapy. Continue to monitor troponins. Obtaining lactate and chemistries now. TIME: 38 minutes critical care time spent addressing patient's acute respiratory insufficiency, acute on chronic kidney disease, hypotension/review of all data and collaboration with care team Code Visit Inpatient E&M: [id number] Init Hosp L3
--- NOTE | 2018-03-08 08:40 | CON.PCM_ITS ---
Problem List (1) History of non-Hodgkin's lymphoma Status: Resolved (2) Anemia Status: Acute Qualifiers: Anemia type: unspecified type Qualified Code(s): D64.9 - Anemia, unspecified (3) Metabolic acidosis Status: Acute (4) Hyperkalemia Status: Acute (5) Syncope Status: Acute (6) FAN (acute kidney injury) Status: Acute (7) Type 2 diabetes mellitus without complications Status: Chronic (8) S/P implantation of automatic cardioverter/defibrillator (AICD) Status: Chronic Comment: 10/06/2009 @ [facility] (9) Cardiomyopathy in other diseases classified elsewhere Status: Chronic (10) Diffuse large B-cell lymphoma Status: Chronic Qualifiers: Lymphoma site: extranodal excluding spleen and other solid organs Qualified Code(s): C83.39 - Diffuse large B-cell lymphoma, extranodal and solid organ sites Reason for Consult Date of Consultation: 03/08/18 Reason for Consultation: Metabolic acidosis History of Present Illness: The patient is a 52 year old F, with past medical history listed below, who was brought to [facility] on 03/08/2018 after being found unresponsive in the bathroom. Patient reportedly was noted to be hypoglycemic by EMS with a blood sugar of 30 and was given oral glucose. Patient had been complaining of epigastric pain and was recently treated with Carafate. Patient reportedly had a syncopal event while trying to go to the bathroom. Patient reportedly has been under a lot of stress lately, but there is no suicidal or homicidal ideation. Patient does have a history of non-Hodgkin's lymphoma, diabetes, nonischemic cardiomyopathy (EF 25%) and anemia. On presentation, patient was normotensive and 100% on room air. Patient was noted to be significantly tachypneic at 33 breaths per minute. Laboratory workup showed a significant lactic acidosis of 12.4 without ketones. Digoxin level was noted at 0.32. Potassium was elevated at 7.6 and creatinine at 1.9. Patient was placed on a bicarb drip and then transferred to the intensive care unit. Overnight, patient had multiple ABG showing consistently improving acidosis. Patient is also had improving lactates. This morning, patient reports significant improvement in dyspnea. However, patient is continuing to report nausea and epigastric discomfort. Patient does report that she has not been eating lunch, but does believe she has been drinking enough water. Patient states that she has been severely depressed secondary to a friend's recent passing on Tuesday. Review of systems otherwise negative ?10 systems. Past Medical History Past Medical History (Chronic Problems): Chronic Problems (Last Reviewed 03/08/18 @ 02:42 by Nick Tamez DO) Type 2 diabetes mellitus without complications (Chronic) S/P implantation of automatic cardioverter/defibrillator (AICD) (Chronic) 10/06/2009 @ [facility] Cardiomyopathy in other diseases classified elsewhere (Chronic) Abnormal electrocardiogram (Chronic) Shortness of breath (Chronic) Diffuse large B-cell lymphoma (Chronic) Medical History: Medical History (Last Reviewed 03/08/18 @ 02:42 by Nick Tamez DO) Type 2 diabetes mellitus without complications (Chronic) E11.9 Cardiomyopathy in other diseases classified elsewhere (Chronic) I43 Abnormal electrocardiogram (Chronic) R94.31 Shortness of breath (Chronic) R06.02 Diffuse large B-cell lymphoma (Chronic) C83.30 Bilateral caract surgery Left - 09/28/17; Right - 10/20/17 Decomp laminectomy to remove T6-7 mass Depression F32.9 Fibromyalgia M79.7 Heel spur surgery History of hysteroscopy Z98.890 Left thyroid aspiration 03/17/17 - benign Replacement of generator for debrillator 11/10/17 Sleep apnea G47.30 Thyroid nodule E04.1 Allergies amitriptyline Adverse Reaction (Severe, Verified 11/28/17 11:08) Nightmares naproxen sodium [From Aleve] Adverse Reaction (Severe, Verified 11/28/17 11:08) Swelling Nasal swelling - causing difficulty breathing Sulfa (Sulfonamide Antibiotics) Adverse Reaction (Intermediate, Verified 11:08) Rash Latex, Natural Rubber Adverse Reaction (Mild, Verified 11/28/17 11:08) Other irritates/smith the skin Home Medications: Ambulatory Orders Medication Instructions Recorded Amitriptyline HCl 1 - 2 mg PO QHS PRN 03/07/18 Carvedilol [Coreg] 0.5 tab PO BID 03/07/18 Cholecalciferol (Vitamin D3) 5,000 unit PO DAILY 03/07/18 [Vitamin D3] Clonazepam [Klonopin] 1 mg PO QHS 03/07/18 Digoxin 125 mcg PO DAILY 03/07/18 Folic Acid 1 mg PO BIDCM 03/07/18 Furosemide [Lasix] 40 mg PO DAILY 03/07/18 Gabapentin [Neurontin] 100 mg PO BID 03/07/18 Lamotrigine [Lamictal] 200 mg PO QHS 03/07/18 Levothyroxine [Synthroid] 50 mcg PO MOTUWETHFR 03/07/18 Levothyroxine [Synthroid] 50 mcg PO SUSA 03/07/18 Lisinopril [Zestril] 2.5 mg PO DAILY 03/07/18 Melatonin 3 mg PO DAILY 03/07/18 Metformin HCl [Glucophage] 2 tab PO BID 03/07/18 Omeprazole [Prilosec] 20 mg PO DAILY 03/07/18 Ondansetron HCl [Zofran] 4 mg PO Q8H PRN 03/07/18 Potassium Chloride [Klor-Con M20] 20 meq PO TID 03/07/18 Sennosides [Senokotxtra] 8.6 mg PO DAILY 03/07/18 Simvastatin [Zocor] 10 mg PO QHS 03/07/18 Spironolactone 12.5 mg PO DAILY 03/07/18 Venlafaxine HCl [Venlafaxine HCl 150 mg PO DAILY 03/07/18 ER] Vicodin 5-500 Mg Tablet 5 - 500 mg PO Q6H PRN 03/07/18 Surgical History: Surgical History (Last Reviewed 03/08/18 @ 02:42 by Nick Tamez DO) S/P implantation of automatic cardioverter/defibrillator (AICD) (Chronic) Z95.810 10/06/2009 @ [facility] History of cholecystectomy Z98.890, Z90.49 History of stem cell transplant Z94.84 Surgical History: - - cholecystecomy Smoking Status: Never smoker Tobacco Use: Non-smoker Alcohol: None Drugs: None - *Family History Maternal Family History: Family History (Last Reviewed 03/08/18 @ 02:42 by Nick Tamez DO) Father CVA (cerebral vascular accident) Diabetes Hypertension Mother Hypertension Brother Diabetes Hypertension History Items: Unknown Review of Systems Comment: See HPI Patient Problems: Active and Suspected Problems (Last Reviewed 03/08/18 @ 02:42 by Nick Tamez DO) Metabolic acidosis (Acute) Hyperkalemia (Acute) Syncope (Acute) FAN (acute kidney injury) (Acute) Objective: All imaging was personally reviewed. Chest x-ray shows central line in appropriate position. KUB shows a nonspecific bowel gas pattern. CT of the head was unremarkable. - Physical Exam General: Alert, Oriented x3, Cooperative, - - Appears uncomfortable, but no accessory muscles are noted. Obese. HEENT: Atraumatic, PERRLA, EOMI, Normocephalic, - - Slightly pale conjunctivae Oral: No Gingival or Mucosal Lesions/ Ulcerations, Dry Mucosa Neck: Supple, No JVD, No Nodes, Trachea Midline, - - Somewhat limited secondary to body habitus. Central line appears clean, dry and intact. Lungs: No rhonchi, No wheeze, No rales, Diminished, - - Symmetric expansion. No dullness to percussion. Cardiovascular: Regular rate, Regular Rhythm, Normal S1, Normal S2, No murmurs, No rub noted, No Gallop Abdomen: Bowel Sounds Present, Soft, Non Tender, Non-Distended, Obese Extremities: No clubbing, No cyanosis, No edema Skin: No rashes, No breakdown Musculoskeletal: No Tenderness to Palpation of Joints or Extremities Lymphatic: No Cervical, Supraclavicular, or Inguinal Adenopathy Neurological: Cranial nerves II-XII grossly intact, Neuro grossly intact Psych/Mental Status: Appropriate, Flat Affect Vital Signs Temp Pulse Resp BP Pulse Ox 37.3 C 94 19 H 89/75 L 99 03/08/18 08:00 03/08/18 08:00 03/08/18 08:00 03/08/18 08:00 03/08/18 08:00 Oxygen Flow Rate (L/min) 2 Oxygen Delivery Method Room Air Weight: 102 kg Body Mass Index (BMI) 37.4 Intake and Output for Last 24 Hours 03/06/18 03/07/18 03/08/18 23:59 23:59 23:59 Intake Total 565.8 / 565.8 Output Total 150 / 150 Balance 415.8 / 415.8 Laboratory Tests Past 24 Hrs 03/08/18 03/08/18 03/08/18 03:00 04:02 04:02 WBC 7.8 RBC 3.41 L Hgb 10.8 L Hct 35.1 L MCV 102.9 H MCH 31.7 MCHC 30.8 L RDW 18.8 H RDW Differential 68.1 H Plt Count 158 MPV 11.0 Differential Comment SCANNED Specimen Type Sample Site VBG pH VBG pO2 VBG O2 Sat (Calc) VBG O2 Content VBG Base Excess POC Mix VBG pCO2 Pt Tmp O2 Delivery Device Liter Flow Blood Gas Notified Whom Blood Gas Notified Time Sodium 139 Potassium 5.8 H Chloride 105 Carbon Dioxide 17.0 L Anion Gap 17 H BUN 30 H Creatinine 1.66 H Est GFR (MDRD) Af Amer 41 L Est GFR (MDRD) Non-Af 34 L BUN/Creatinine Ratio 18.1 Glucose 194 H Lactic Acid Calcium 8.2 L Troponin I Digoxin MRSA (PCR) POSITIVE H 03/08/18 03/08/18 03/08/18 04:02 04:02 04:54 WBC RBC Hgb Hct MCV MCH MCHC RDW RDW Differential Plt Count MPV Differential Comment Specimen Type LOUISA Sample Site OTHER VBG pH 7.26 L VBG pO2 32 VBG O2 Sat (Calc) 53 VBG O2 Content 16 L VBG Base Excess -12 L POC Mix VBG pCO2 Pt Tmp 34.0 L O2 Delivery Device Nasal Can Liter Flow 2.0 Blood Gas Notified Whom [facility] MD Blood Gas Notified Time 500 Sodium Potassium Chloride Carbon Dioxide Anion Gap BUN Creatinine Est GFR (MDRD) Af Amer Est GFR (MDRD) Non-Af BUN/Creatinine Ratio Glucose Lactic Acid 9.2 H* Calcium Troponin I Pending Digoxin MRSA (PCR) 03/08/18 07:55 WBC RBC Hgb Hct MCV MCH MCHC RDW RDW Differential Plt Count MPV Differential Comment Specimen Type Sample Site VBG pH VBG pO2 VBG O2 Sat (Calc) VBG O2 Content VBG Base Excess POC Mix VBG pCO2 Pt Tmp O2 Delivery Device Liter Flow Blood Gas Notified Whom Blood Gas Notified Time Sodium Potassium Chloride Carbon Dioxide Anion Gap BUN Creatinine Est GFR (MDRD) Af Amer Est GFR (MDRD) Non-Af BUN/Creatinine Ratio Glucose Lactic Acid Calcium Troponin I Digoxin Pending MRSA (PCR) POC Glucose 03/08/18 07:50 POC Glucose 211 H Clinical Impression(s) from Imaging Studies Chest X-Ray 03/07/18 22:32 IMPRESSION: Moderate cardiomegaly with no evidence of pulmonary vascular congestion. Electronically Signed: Lamberto Arreola DO at 23:00 EDT , Service support , Chest X-Ray 03/07/18 23:47 IMPRESSION: Right internal jugular central line with the tip at the junction of superior vena cava and right atrium, in its expected location. No pneumothorax. Stable cardiomegaly. Electronically Signed: Jin Rolon MD at 0:12 EDT , Service support , Brain CT 03/08/18 00:27 IMPRESSION: Normal unenhanced CT scan of the brain. Electronically Signed: Jin Rolon MD at 1:58 EDT , Service support , KUB X-Ray 03/08/18 02:59 IMPRESSION: Nonspecific bowel gas pattern without evidence of obstruction. Electronically Signed: Jin Rolon MD at 4:14 EDT , Service support , Assessment/Plan Active and Suspected Problems (Last Reviewed 03/08/18 @ 02:42 by Nick Tamez DO) Metabolic acidosis (Acute) Hyperkalemia (Acute) Syncope (Acute) FAN (acute kidney injury) (Acute) RECOMMENDATIONS: 1. Avoid fluid boluses of possible 2. Use minimal supplemental oxygen 3. Repeat BMP and lactate at 11 AM 4. Recheck LFTs tomorrow 5. Hold metformin, sliding scale insulin IMPRESSIONS: 1. Acute respiratory insufficiency secondary to lactic acidosis Clinical suspicion for lactic acidosis secondary to metformin given new onset renal failure. Patient's respiratory status has greatly improved since presentation. No repeat ABG at this time. We will recheck chemistries and lactic acid at 11 AM. Wean oxygen to room air. This will allow for evaluation of the development of pulmonary edema secondary to congestive heart failure. 2. Acute on chronic kidney disease stage III Clinical suspicion for dehydration leading to elevation of creatinine decreased clearance. Will hold diuretics for now. Patient is getting a bicarbonate drip, but this can likely be discontinued following chemistries at 11 AM. Patient is nauseous. Would avoid boluses if possible as patient would be at high risk for development of pulmonary edema. Patient does not have an acute abdomen at this time. Liver function shows slight elevation of bilirubin , but pancreatic enzymes are unremarkable. 3. Chronic systolic congestive heart failure Last known ejection fraction of 25% in 2014. Patient does have hyperkalemia, likely secondary to lactic acidosis, so DIAMOND inhibitor has been held. Patient is on her carvedilol. Will need to monitor closely with fluids as patient will be at risk for the development of pulmonary edema. Continue with telemetry. Digoxin levels have been sent. Patient does have a lower systolic blood pressure, but map is acceptable at this time. Would not recommend fluid boluses. 4. Obesity/non-Hodgkin's lymphoma/fibromyalgia/sleep apnea/diabetes mellitus type 2 Complicates care, management, recovery and prognosis. Will hold on diabetic medications at this time. Sliding scale insulin if needed. Addendum 11:27 AM Patient continues to have hypotension with decreased responsiveness. Some concern for excessive fluids causing problems with congestive heart failure. Patient will be initiated on pressor therapy. Continue to monitor troponins. Obtaining lactate and chemistries now. TIME: 38 minutes critical care time spent addressing patient's acute respiratory insufficiency, acute on chronic kidney disease, hypotension/review of all data and collaboration with care team Code Visit Inpatient E&M: 63000 Init Hosp L3
[2018-03-08 08:56] LABS: Allen Test POS; Base Excess -19 mmol/L (-2 to +2); Bicarbonate 9.5 mmol/L (22-26); Blood Gas Specimen Type ART; O2 Delivery Device Nasal Can; PO2 137 mmHG (75-100); SITE R Radial; SO2 99 % (95-99); Time Given 50; Total Carbon Dioxide 10 mmol/L; pCO2 24.4 mmHg (35-45)
[2018-03-08 08:59] LABS: Digoxin Level 0.23 ng/mL (0.80-2.00)
[2018-03-08] MEDS: Heparin Injection (Vial) 5,000 UNIT/ML VIAL 5000 UNIT SC ×2 (09:35→22:03)
[2018-03-08 11:35] LABS: Bedside Glucose 213 mg/dL (70-110)
[2018-03-08 11:46] LABS: Absolute Lymphocyte Count 0.58 X10^3/ul (0.83-4.51); Absolute Neutrophil Count 6.5 X10^3/uL (2.0-7.7); Differential Indicated SCAN CRITERIA MET; Hematocrit 33.2 % (37-47); Hemoglobin 10.4 g/dl (12.0-15.0); Lymphocyte # 0.58 X10^3/ul (4.0); Lymphocyte % 7.6 % (19-41); Mean Corp Hgb Conc 31.3 g/gl (32-36); Mean Corpuscular Hgb 31.8 pg (27.0-32.0); Mean Corpuscular Volume 101.5 fL (81-99); Mean Platelet Vol. 11.3 fl (6.2-12.0); Monocyte# 0.52 X10^3/uL; Monocyte% 6.8 % (0-10); Neutrophil # 6.51 X10^3/uL (2.7-7.7); Neutrophil % 85.3 % (47-70); POSITIVE COUNT NO; POSITIVE DIFFERENTIAL YES; POSITIVE MORPHOLOGY YES; Platelet Count 166 K/mm3 (150-450); RBC Distribution Width CV 18.9 % (11.6-14.6); RBC Distribution Width SD 67.7 fl (35.1-43.9); Red Blood Count 3.27 M/mm3 (4.2-5.4); White Blood Count 7.6 K/mm3 (4.4-11.0)
[2018-03-08 11:49] LABS: Anion Gap 13 (5-15); BUN 31 mg/dL (7-18); BUN/Creat Ratio 19.4 RATIO (10-20); Calcium,Total 8.3 mg/dL (8.5-10.1); Chloride 102 mmol/L (98-107); EST Glomerular Filtration Rate 36 mL/min (>60); Est Glom Filt Rate - Afr Amer 43 mL/min (>60); Estimated Creatinine Clearance 36.59 ml/min; Glucose 220 mg/dL (74-106); Potassium 5.1 mmol/L (3.5-5.1); Sodium Level 139 mmol/L (136-145)
[2018-03-08 12:27] LABS: Anisocytosis 1+
[2018-03-08 12:28] LABS: Platelet Morphology LARGE
[2018-03-08 12:29] LABS: Lactic Acid 6.5 mmol/L (0.4-2.0)
--- NOTE | 2018-03-08 12:33 | CASEMGMT ---
See assessment. SW spoke w/pt in room, pt states is feeling well one minute then bad the next. Pt lives home w/her brother, she lives on the 1st floor and he lives on the 2nd. Pt is normally independent at home. It is not anticipated pt will have needs at discharge, though SW/CM will continue to follow in the event needs arise. Pt has not completed POA/LW forms in the past, if feeling better tomorrow, it may be appropriate to speak w/pt about this again. SHO Allen, TOOL INSPECTOR
[2018-03-08] MEDS: Nystatin Powder 15gm Bottle 1 APPLIC TOPICAL ×2 (13:16→22:03)
[2018-03-08] MEDS: Glucerna Shake 120 ML LIQUID PO (14:32)
[2018-03-08] MEDS: 0.9% Normal Saline 1,000 ML 75 ML IV (14:32)
[2018-03-08 15:32] LABS: Reflex Lactate? Y
[2018-03-08 16:21] LABS: Bedside Glucose 143 mg/dL (70-110)
[2018-03-08 18:26] LABS: Bedside Glucose 20 mg/dL (70-110)
[2018-03-08] MEDS: lamoTRIgine 100 MG Tablet 200 MG PO (22:03)
[2018-03-08] MEDS: clonazePAM 1 MG Tablet PO (22:03)
[2018-03-08 22:10] LABS: Bedside Glucose 110 mg/dL (70-110)
[2018-03-09] VITALS (33 sets, daily range): BP systolic 81–101; BP diastolic 43–79; PULSE 88–110; RESP 12–26; TEMP 36.3–36.7; O2SAT 93–100
[2018-03-09] MEDS: 0.9% Normal Saline 1,000 ML 75 ML IV (01:08)
[2018-03-09 04:29] LABS: Anion Gap 10 (5-15); BUN 31 mg/dL (7-18); BUN/Creat Ratio 24.8 RATIO (10-20); Calcium,Total 8.4 mg/dL (8.5-10.1); Chloride 102 mmol/L (98-107); Creatinine, Serum 1.25 mg/dL (0.55-1.02); EST Glomerular Filtration Rate 48 mL/min (>60); Est Glom Filt Rate - Afr Amer 57 mL/min (>60); Glucose 111 mg/dL (74-106); Potassium 4.6 mmol/L (3.5-5.1); Sodium Level 139 mmol/L (136-145)
[2018-03-09 04:30] LABS: Absolute Lymphocyte Count 0.81 X10^3/ul (0.83-4.51); Absolute Neutrophil Count 6.8 X10^3/uL (2.0-7.7); Differential Indicated SCAN CRITERIA MET; Hematocrit 31.8 % (37-47); Hemoglobin 9.9 g/dl (12.0-15.0); Lymphocyte # 0.81 X10^3/ul (4.0); Lymphocyte % 9.7 % (19-41); Mean Corp Hgb Conc 31.1 g/gl (32-36); Mean Corpuscular Hgb 31.2 pg (27.0-32.0); Mean Corpuscular Volume 100.3 fL (81-99); Mean Platelet Vol. 10.8 fl (6.2-12.0); Monocyte# 0.69 X10^3/uL; Monocyte% 8.3 % (0-10); Neutrophil % 81.8 % (47-70); POSITIVE COUNT NO; POSITIVE DIFFERENTIAL NO; POSITIVE MORPHOLOGY YES; Platelet Count 144 K/mm3 (150-450); RBC Distribution Width CV 19.2 % (11.6-14.6); RBC Distribution Width SD 67.4 fl (35.1-43.9); Red Blood Count 3.17 M/mm3 (4.2-5.4); White Blood Count 8.3 K/mm3 (4.4-11.0)
[2018-03-09] MEDS: Nystatin Powder 15gm Bottle 1 APPLIC TOPICAL ×3 (06:08→21:57)
[2018-03-09] MEDS: Levothyroxine 50 MCG Tablet PO (06:08)
[2018-03-09] MEDS: CHLORHEXIDINE GLUC 2% CLOTH 1 EACH TOWELETTE TOPICAL (06:09)
[2018-03-09 06:12] LABS: Differential Comment SCANNED; Macrocytosis 2+; Ovalocyte 1+
[2018-03-09 06:31] LABS: Bedside Glucose 114 mg/dL (70-110)
--- NOTE | 2018-03-09 08:07 | PCM.PN.HOSP ---
Patient Problems: Active and Suspected Problems (Last Reviewed 03/08/18 @ 02:42 by Nick Tamez DO) Metabolic acidosis (Acute) Hyperkalemia (Acute) Syncope (Acute) FAN (acute kidney injury) (Acute) Subjective: Patient was seen and examined. No acute events overnight. Was on Levophed for the most part yesterday. Switched off yesterday. Had issues with Mendez catheter leaking, could not be advanced. Mendez was left out. She has been incontinent of urine. Denies any chest pain no dizziness or palpitation. Complains of fatigue. Vitals/I&O's: Vital Signs Temp Pulse Resp BP Pulse Ox 98.1 F 88 18 91/66 98 03/09/18 08:00 03/09/18 08:00 03/09/18 08:00 03/09/18 08:00 03/09/18 08:00 Oxygen Flow Rate (L/min) 2 Oxygen Delivery Method Room Air Weight: 104.4 kg Body Mass Index (BMI) 37.4 Intake and Output for Last 24 Hours 03/07/18 03/08/18 03/09/18 23:59 23:59 23:59 Intake Total 3218.2 / 3218.2 627 / 627 Output Total 430 / 430 Balance 2788.2 / 2788.2 627 / 627 Laboratory Results 03/08/18 07:50: POC Glucose 211 H 03/08/18 07:55: Digoxin 0.23 L 03/08/18 07:55: Troponin I 0.781 H* 03/08/18 11:15: Sodium 139, Potassium 5.1, Chloride 102, Carbon Dioxide 24.0, Anion Gap 13, BUN 31 H, Creatinine 1.60 H, Estim Creat Clear Calc 36.59, Est GFR (MDRD) Af Amer 43 L, Est GFR (MDRD) Non-Af 36 L, BUN/Creatinine Ratio 19.4, Glucose 220 H, Calcium 8.3 L 03/08/18 11:15: Lactic Acid 6.5 H* 03/08/18 11:15: WBC 7.6, RBC 3.27 L, Hgb 10.4 L, Hct 33.2 L, MCV 101.5 H, MCH 31.8, MCHC 31.3 L, RDW 18.9 H, RDW Differential 67.7 H, Plt Count 166, MPV 11.3, Immature Gran % (Auto) 0.300, Neut % (Auto) 85.3 H, Lymph % (Auto) 7.6 L, [place] % (Auto) 6.8, Eos % (Auto) 0.0, Baso % (Auto) 0.0, Absolute Neuts (auto) 6.5, Absolute Lymphs (auto) 0.58 L, Total Counted Not Reportable, Plt Morphology Comment LARGE, Anisocytosis 1+ 03/08/18 11:16: POC Glucose 213 H 03/08/18 16:08: POC Glucose 143 H 03/08/18 21:58: POC Glucose 110 03/09/18 04:05: WBC 8.3, RBC 3.17 L, Hgb 9.9 L, Hct 31.8 L, MCV 100.3 H, MCH 31.2, MCHC 31.1 L, RDW 19.2 H, RDW Differential 67.4 H, Plt Count 144 L, MPV 10.8, Immature Gran % (Auto) 0.200, Neut % (Auto) 81.8 H, Lymph % (Auto) 9.7 L, [place] % (Auto) 8.3, Eos % (Auto) 0.0, Baso % (Auto) 0.0, Absolute Neuts (auto) 6.8, Absolute Lymphs (auto) 0.81 L, Total Counted Not Reportable, Differential Comment SCANNED, Macrocytosis 2+, Ovalocytes 1+ 03/09/18 04:05: Sodium 139, Potassium 4.6, Chloride 102, Carbon Dioxide 27.0, Anion Gap 10, BUN 31 H, Creatinine 1.25 H, Estim Creat Clear Calc 46.30, Est GFR (MDRD) Af Amer 57 L, Est GFR (MDRD) Non-Af 48 L, BUN/Creatinine Ratio 24.8 H, Glucose 111 H, Calcium 8.4 L 03/09/18 06:26: POC Glucose 114 H Current Medications Acetaminophen (Tylenol) 650 mg PO Q6H PRN PRN PRN Reason: Mild Pain (1-3)/Temp > 100.7 F Carvedilol (Coreg) 3.125 mg PO BID [facility] Last Admin: 03/08/18 21:54 Dose: Not Given Chlorhexidine Gluconate () 1 each TOPICAL DAILY [facility] Last Admin: 03/09/18 06:09 Dose: 1 each Clonazepam (Klonopin) 1 mg PO QHS [facility] Last Admin: 03/08/18 22:03 Dose: 1 mg Heparin Sodium (Porcine) (Heparin Na) 5,000 unit SC Q12 [facility] Last Admin: 03/08/18 22:03 Dose: 5,000 u Sodium Chloride () 250 mls @ 15 mls/hr IV .[id number] PRN PRN Reason: SALINE FLUSH Norepinephrine Bitartrate 8 mg (/ Dextrose) 258 mls @ 9.67 mls/hr IV .[id number] [facility] PRN Reason: 5 MCG/MIN Last Admin: 03/08/18 11:49 Dose: 9.67 mls/hr Sodium Chloride () 1,000 mls @ 75 mls/hr IV .[id number] [facility] Last Admin: 03/09/18 01:08 Dose: 75 mls/hr Insulin Human Lispro (Humalog Kwikpen (Bkc)) 0 unit SC ACHS [facility] PRN Reason: Protocol Last Admin: 03/09/18 06:27 Dose: Not Given Lamotrigine (Lamictal) 200 mg PO QHS [facility] Last Admin: 03/08/18 22:03 Dose: 200 mg Levothyroxine Sodium (Synthroid) 50 mcg PO [id number]@[id number] [facility] Last Admin: 03/09/18 06:08 Dose: 50 mcg Levothyroxine Sodium (Synthroid) 50 mcg PO [id number] [facility] Magnesium Hydroxide (Milk Of Magnesia) 30 ml PO DAILY PRN PRN PRN Reason: Constipation Nutritional Formula (Lactose Free) (Glucerna Shake) 120 ml PO 4X/DAY [facility] Last Admin: 03/08/18 21:54 Dose: Not Given Nystatin (Mycostatin Powder) 1 applic TOPICAL TID [facility] PRN Reason: Protocol Last Admin: 03/09/18 06:08 Dose: 1 applic Ondansetron HCl (Zofran) 4 mg IV Q8H PRN PRN PRN Reason: NAUSEA Last Admin: 03/08/18 08:05 Dose: 4 mg Ondansetron HCl (Zofran Odt) 4 mg PO Q8H PRN PRN PRN Reason: NAUSEA/VOMITING Sodium Chloride () 10 - 40 ml IV UD PRN PRN Reason: MULTILUMEN/HICMAN CATH FLUSH Last Admin: 03/09/18 06:09 Dose: 20 ml Medical Necessity - Tobacco Use Smoking Status: Never smoker Tobacco Use: Non-smoker Assessment/Plan All Active Problems (Last Reviewed 03/08/18 @ 02:42 by Nick Tamez, DO) History of non-Hodgkin's lymphoma (Resolved) care home use of drug (Acute) Pain, axillary (Acute) Anemia (Acute) Metabolic acidosis (Acute) Hyperkalemia (Acute) Syncope (Acute) FAN (acute kidney injury) (Acute) 52 year old female with past medical history of type 2 DM on metformin and insulin, hypertension, nonischemic cardiomyopathy, EF of 25% in 2015, status post AICD implantation, history of known non-Hodgkins lymphoma admitted last night with unresponsiveness. 1. Acute metabolic encephalopathy secondary to #2, resolved, patient is alert and oriented ?3 2. Metabolic acidosis with lactic acidosis, likely secondary to unresponsiveness/metformin/acute kidney injury, less likely due to sepsis, resolved, off bicarbonate drip, will follow-up BMP in a.m. 3. Shock, unclear etiology, history of nonischemic cardiomyopathy, off Levophed, blood pressures have been in the systolic 90s, will continue to monitor. 4. Elevated troponin on arrival of 0.081, likely secondary to demand ischemia, underlying known ischemic cardiomyopathy with EF of 15%, history of AICD 5. Hyperkalemia, resolved with improvement in FAN, will continue to monitor. 6. Acute kidney injury, prerenal, baseline creatinine of 1.17 about a month ago, improving, admitting Cr is 1.90, 1.25 today, on NS 75mls/hr, will continue to monitor. 7. Abdominal pain,resolved. 8. Type 2 DM, off metformin, Blood sugars are stable, will continue with accuheks and ISS. 6. Code Status: Full code. 7. DVT prophylaxis with subcu heparin Code Visit Inpatient E&M: 40014 Subs Hosp L3
--- NOTE | 2018-03-09 08:17 | PN_ITS ---
Patient Problems: Active and Suspected Problems (Last Reviewed 03/08/18 @ 02:42 by Nick Tamez DO) Metabolic acidosis (Acute) Hyperkalemia (Acute) Syncope (Acute) FAN (acute kidney injury) (Acute) Subjective: Patient was seen and examined. No acute events overnight. Was on Levophed for the most part yesterday. Switched off yesterday. Had issues with Mendez catheter leaking, could not be advanced. Mendez was left out. She has been incontinent of urine. Denies any chest pain no dizziness or palpitation. Complains of fatigue. Vitals/I&O's: Vital Signs Temp Pulse Resp BP Pulse Ox 98.1 F 88 18 91/66 98 03/09/18 08:00 03/09/18 08:00 03/09/18 08:00 03/09/18 08:00 03/09/18 08:00 Oxygen Flow Rate (L/min) 2 Oxygen Delivery Method Room Air Weight: 104.4 kg Body Mass Index (BMI) 37.4 Intake and Output for Last 24 Hours 03/07/18 03/08/18 03/09/18 23:59 23:59 23:59 Intake Total 3218.2 / 3218.2 627 / 627 Output Total 430 / 430 Balance 2788.2 / 2788.2 627 / 627 Laboratory Results 03/08/18 07:50: POC Glucose 211 H 03/08/18 07:55: Digoxin 0.23 L 03/08/18 07:55: Troponin I 0.781 H* 03/08/18 11:15: Sodium 139, Potassium 5.1, Chloride 102, Carbon Dioxide 24.0, Anion Gap 13, BUN 31 H, Creatinine 1.60 H, Estim Creat Clear Calc 36.59, Est GFR (MDRD) Af Amer 43 L, Est GFR (MDRD) Non-Af 36 L, BUN/Creatinine Ratio 19.4, Glucose 220 H, Calcium 8.3 L 03/08/18 11:15: Lactic Acid 6.5 H* 03/08/18 11:15: WBC 7.6, RBC 3.27 L, Hgb 10.4 L, Hct 33.2 L, MCV 101.5 H, MCH 31.8, MCHC 31.3 L, RDW 18.9 H, RDW Differential 67.7 H, Plt Count 166, MPV 11.3 , Immature Gran % (Auto) 0.300, Neut % (Auto) 85.3 H, Lymph % (Auto) 7.6 L, [place] % (Auto) 6.8, Eos % (Auto) 0.0, Baso % (Auto) 0.0, Absolute Neuts (auto) 6.5, Absolute Lymphs (auto) 0.58 L, Total Counted Not Reportable, Plt Morphology Comment LARGE, Anisocytosis 1+ 03/08/18 11:16: POC Glucose 213 H 03/08/18 16:08: POC Glucose 143 H 03/08/18 21:58: POC Glucose 110 03/09/18 04:05: WBC 8.3, RBC 3.17 L, Hgb 9.9 L, Hct 31.8 L, MCV 100.3 H, MCH 31.2, MCHC 31.1 L, RDW 19.2 H, RDW Differential 67.4 H, Plt Count 144 L, MPV 10.8, Immature Gran % (Auto) 0.200, Neut % (Auto) 81.8 H, Lymph % (Auto) 9.7 L, [place] % (Auto) 8.3, Eos % (Auto) 0.0, Baso % (Auto) 0.0, Absolute Neuts (auto) 6.8, Absolute Lymphs (auto) 0.81 L, Total Counted Not Reportable, Differential Comment SCANNED, Macrocytosis 2+, Ovalocytes 1+ 03/09/18 04:05: Sodium 139, Potassium 4.6, Chloride 102, Carbon Dioxide 27.0, Anion Gap 10, BUN 31 H, Creatinine 1.25 H, Estim Creat Clear Calc 46.30, Est GFR (MDRD) Af Amer 57 L, Est GFR (MDRD) Non-Af 48 L, BUN/Creatinine Ratio 24.8 H , Glucose 111 H, Calcium 8.4 L 03/09/18 06:26: POC Glucose 114 H Current Medications Acetaminophen (Tylenol) 650 mg PO Q6H PRN PRN PRN Reason: Mild Pain (1-3)/Temp > 100.7 F Carvedilol (Coreg) 3.125 mg PO BID [facility] Last Admin: 03/08/18 21:54 Dose: Not Given Chlorhexidine Gluconate () 1 each TOPICAL DAILY [facility] Last Admin: 03/09/18 06:09 Dose: 1 each Clonazepam (Klonopin) 1 mg PO QHS [facility] Last Admin: 03/08/18 22:03 Dose: 1 mg Heparin Sodium (Porcine) (Heparin Na) 5,000 unit SC Q12 [facility] Last Admin: 03/08/18 22:03 Dose: 5,000 u Sodium Chloride () 250 mls @ 15 mls/hr IV .[id number] PRN PRN Reason: SALINE FLUSH Norepinephrine Bitartrate 8 mg (/ Dextrose) 258 mls @ 9.67 mls/hr IV .[id number] [facility] PRN Reason: 5 MCG/MIN Last Admin: 03/08/18 11:49 Dose: 9.67 mls/hr Sodium Chloride () 1,000 mls @ 75 mls/hr IV .[id number] [facility] Last Admin: 03/09/18 01:08 Dose: 75 mls/hr Insulin Human Lispro (Humalog Kwikpen (Bkc)) 0 unit SC ACHS [facility] PRN Reason: Protocol Last Admin: 03/09/18 06:27 Dose: Not Given Lamotrigine (Lamictal) 200 mg PO QHS [facility] Last Admin: 03/08/18 22:03 Dose: 200 mg Levothyroxine Sodium (Synthroid) 50 mcg PO MoTuWeThFr@0600 [facility] Last Admin: 03/09/18 06:08 Dose: 50 mcg Levothyroxine Sodium (Synthroid) 50 mcg PO SuSa@0600 [facility] Magnesium Hydroxide (Milk Of Magnesia) 30 ml PO DAILY PRN PRN PRN Reason: Constipation Nutritional Formula (Lactose Free) (Glucerna Shake) 120 ml PO 4X/DAY [facility] Last Admin: 03/08/18 21:54 Dose: Not Given Nystatin (Mycostatin Powder) 1 applic TOPICAL TID [facility] PRN Reason: Protocol Last Admin: 03/09/18 06:08 Dose: 1 applic Ondansetron HCl (Zofran) 4 mg IV Q8H PRN PRN PRN Reason: NAUSEA Last Admin: 03/08/18 08:05 Dose: 4 mg Ondansetron HCl (Zofran Odt) 4 mg PO Q8H PRN PRN PRN Reason: NAUSEA/VOMITING Sodium Chloride () 10 - 40 ml IV UD PRN PRN Reason: MULTILUMEN/HICMAN CATH FLUSH Last Admin: 03/09/18 06:09 Dose: 20 ml Medical Necessity - Tobacco Use Smoking Status: Never smoker Tobacco Use: Non-smoker Assessment/Plan All Active Problems (Last Reviewed 03/08/18 @ 02:42 by Nick Tamez, DO) History of non-Hodgkin's lymphoma (Resolved) 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 1. Acute metabolic encephalopathy secondary to #2, resolved, patient is alert and oriented ?3 2. Metabolic acidosis with lactic acidosis, likely secondary to unresponsiveness /metformin/acute kidney injury, less likely due to sepsis, resolved, off bicarbonate drip, will follow-up BMP in a.m. 3. Shock, unclear etiology, history of nonischemic cardiomyopathy, off Levophed , blood pressures have been in the systolic 90s, will continue to monitor. 4. Elevated troponin on arrival of 0.081, likely secondary to demand ischemia, underlying known ischemic cardiomyopathy with EF of 15%, history of AICD 5. Hyperkalemia, resolved with improvement in FAN, will continue to monitor. 6. Acute kidney injury, prerenal, baseline creatinine of 1.17 about a month ago , improving, admitting Cr is 1.90, 1.25 today, on NS 75mls/hr, will continue to monitor. 7. Abdominal pain,resolved. 8. Type 2 DM, off metformin, Blood sugars are stable, will continue with accuheks and ISS. 6. Code Status: Full code. 7. DVT prophylaxis with subcu heparin Code Visit Inpatient E&M: 25800 Subs Hosp L3
--- NOTE | 2018-03-09 08:24 | PCM.PN.INT ---
Subjective: Patient did okay overnight. Patient was on Levophed for most of the day yesterday, but this was discontinued approximately 11:30 PM. Patient reports subjective improvement in overall condition compared to yesterday. Patient reports improved energy and less nausea compared to previous. Patient is denying any chest pain. There was some difficulty with patient's Mendez catheter and this had to be removed. Attempts to replace were unsuccessful. Patient incontinent of urine twice overnight. Patient tolerating room air. Objective: Echocardiogram shows an EF of 15% with stage III diastolic dysfunction, 3+ MR and a PASP of 53. This is a significant change from previous echocardiogram showing an EF of 25%. General: Alert, Oriented x3, Cooperative, No apparent distress, - - Speaking in full sentences. Morbidly obese. HEENT: Atraumatic, PERRLA, EOMI, Normocephalic, - - No scleral icterus or injection noted. Oral: Moist Mucosa, No Gingival or Mucosal Lesions/ Ulcerations Neck: Supple, No JVD, No Nodes, Trachea Midline Lungs: No rhonchi, No wheeze, No rales, Diminished, - - Symmetric expansion. No dullness to percussion. Cardiovascular: Regular rate, Regular Rhythm, Normal S1, Normal S2, Murmur, No rub noted, No Gallop Abdomen: Bowel Sounds Present, Soft, Non Tender, Non-Distended, Obese Extremities: No clubbing, No cyanosis, Capillary Refill Less than 3 Seconds, Edema Skin: - - No significant change compared to previous Musculoskeletal: No Tenderness to Palpation of Joints or Extremities, No Muscle Wasting Lymphatic: No Cervical, Supraclavicular, or Inguinal Adenopathy Neurological: Cranial nerves II-XII grossly intact, Neuro grossly intact Psych/Mental Status: Appropriate, - - Odd affect Vital Signs Temp Pulse Resp BP Pulse Ox 36.7 C 88 18 91/66 98 03/09/18 08:00 03/09/18 08:00 03/09/18 08:00 03/09/18 08:00 03/09/18 08:00 Oxygen Flow Rate (L/min) 2 Oxygen Delivery Method Room Air Weight: 104.4 kg Body Mass Index (BMI) 37.4 Intake and Output for Last 24 Hours 03/07/18 03/08/18 03/09/18 23:59 23:59 23:59 Intake Total 3218.2 / 3218.2 627 / 627 Output Total 430 / 430 Balance 2788.2 / 2788.2 627 / 627 Labs (Last 48 Hours) 03/08/18 03/08/18 03/08/18 03:00 04:02 04:02 WBC 7.8 RBC 3.41 L Hgb 10.8 L Hct 35.1 L MCV 102.9 H MCH 31.7 MCHC 30.8 L RDW 18.8 H RDW Differential 68.1 H Plt Count 158 MPV 11.0 Immature Gran % (Auto) Neut % (Auto) Lymph % (Auto) [place] % (Auto) Eos % (Auto) Baso % (Auto) Absolute Neuts (auto) Absolute Lymphs (auto) Total Counted Differential Comment SCANNED Plt Morphology Comment Anisocytosis Macrocytosis Ovalocytes Specimen Type Sample Site VBG pH VBG pO2 VBG O2 Sat (Calc) VBG O2 Content VBG Base Excess POC Mix VBG pCO2 Pt Tmp O2 Delivery Device Liter Flow Blood Gas Notified Whom Blood Gas Notified Time Sodium 139 Potassium 5.8 H Chloride 105 Carbon Dioxide 17.0 L Anion Gap 17 H BUN 30 H Creatinine 1.66 H Estim Creat Clear Calc Est GFR (MDRD) Af Amer 41 L Est GFR (MDRD) Non-Af 34 L BUN/Creatinine Ratio 18.1 Glucose 194 H Lactic Acid Calcium 8.2 L Troponin I Digoxin MRSA (PCR) POSITIVE H POC Glucose 03/08/18 03/08/18 03/08/18 04:02 04:54 07:50 WBC RBC Hgb Hct MCV MCH MCHC RDW RDW Differential Plt Count MPV Immature Gran % (Auto) Neut % (Auto) Lymph % (Auto) [place] % (Auto) Eos % (Auto) Baso % (Auto) Absolute Neuts (auto) Absolute Lymphs (auto) Total Counted Differential Comment Plt Morphology Comment Anisocytosis Macrocytosis Ovalocytes Specimen Type LOUISA Sample Site OTHER VBG pH 7.26 L VBG pO2 32 VBG O2 Sat (Calc) 53 VBG O2 Content 16 L VBG Base Excess -12 L POC Mix VBG pCO2 Pt Tmp 34.0 L O2 Delivery Device Nasal Can Liter Flow 2.0 Blood Gas Notified Whom [facility] Blood Gas Notified Time 500 Sodium Potassium Chloride Carbon Dioxide Anion Gap BUN Creatinine Estim Creat Clear Calc Est GFR (MDRD) Af Amer Est GFR (MDRD) Non-Af BUN/Creatinine Ratio Glucose Lactic Acid 9.2 H* Calcium Troponin I Digoxin MRSA (PCR) POC Glucose 211 H 03/08/18 03/08/18 03/08/18 07:55 07:55 11:15 WBC RBC Hgb Hct MCV MCH MCHC RDW RDW Differential Plt Count MPV Immature Gran % (Auto) Neut % (Auto) Lymph % (Auto) [place] % (Auto) Eos % (Auto) Baso % (Auto) Absolute Neuts (auto) Absolute Lymphs (auto) Total Counted Differential Comment Plt Morphology Comment Anisocytosis Macrocytosis Ovalocytes Specimen Type Sample Site VBG pH VBG pO2 VBG O2 Sat (Calc) VBG O2 Content VBG Base Excess POC Mix VBG pCO2 Pt Tmp O2 Delivery Device Liter Flow Blood Gas Notified Whom Blood Gas Notified Time Sodium 139 Potassium 5.1 Chloride 102 Carbon Dioxide 24.0 Anion Gap 13 BUN 31 H Creatinine 1.60 H Estim Creat Clear Calc 36.59 Est GFR (MDRD) Af Amer 43 L Est GFR (MDRD) Non-Af 36 L BUN/Creatinine Ratio 19.4 Glucose 220 H Lactic Acid Calcium 8.3 L Troponin I 0.781 H* Digoxin 0.23 L MRSA (PCR) POC Glucose 03/08/18 03/08/18 03/08/18 11:15 11:15 11:16 WBC 7.6 RBC 3.27 L Hgb 10.4 L Hct 33.2 L MCV 101.5 H MCH 31.8 MCHC 31.3 L RDW 18.9 H RDW Differential 67.7 H Plt Count 166 MPV 11.3 Immature Gran % (Auto) 0.300 Neut % (Auto) 85.3 H Lymph % (Auto) 7.6 L [place] % (Auto) 6.8 Eos % (Auto) 0.0 Baso % (Auto) 0.0 Absolute Neuts (auto) 6.5 Absolute Lymphs (auto) 0.58 L Total Counted Not Reportable Differential Comment Plt Morphology Comment LARGE Anisocytosis 1+ Macrocytosis Ovalocytes Specimen Type Sample Site VBG pH VBG pO2 VBG O2 Sat (Calc) VBG O2 Content VBG Base Excess POC Mix VBG pCO2 Pt Tmp O2 Delivery Device Liter Flow Blood Gas Notified Whom Blood Gas Notified Time Sodium Potassium Chloride Carbon Dioxide Anion Gap BUN Creatinine Estim Creat Clear Calc Est GFR (MDRD) Af Amer Est GFR (MDRD) Non-Af BUN/Creatinine Ratio Glucose Lactic Acid 6.5 H* Calcium Troponin I Digoxin MRSA (PCR) POC Glucose 213 H 03/08/18 03/08/18 03/09/18 16:08 21:58 04:05 WBC 8.3 RBC 3.17 L Hgb 9.9 L Hct 31.8 L MCV 100.3 H MCH 31.2 MCHC 31.1 L RDW 19.2 H RDW Differential 67.4 H Plt Count 144 L MPV 10.8 Immature Gran % (Auto) 0.200 Neut % (Auto) 81.8 H Lymph % (Auto) 9.7 L [place] % (Auto) 8.3 Eos % (Auto) 0.0 Baso % (Auto) 0.0 Absolute Neuts (auto) 6.8 Absolute Lymphs (auto) 0.81 L Total Counted Not Reportable Differential Comment SCANNED Plt Morphology Comment Anisocytosis Macrocytosis 2+ Ovalocytes 1+ Specimen Type Sample Site VBG pH VBG pO2 VBG O2 Sat (Calc) VBG O2 Content VBG Base Excess POC Mix VBG pCO2 Pt Tmp O2 Delivery Device Liter Flow Blood Gas Notified Whom Blood Gas Notified Time Sodium Potassium Chloride Carbon Dioxide Anion Gap BUN Creatinine Estim Creat Clear Calc Est GFR (MDRD) Af Amer Est GFR (MDRD) Non-Af BUN/Creatinine Ratio Glucose Lactic Acid Calcium Troponin I Digoxin MRSA (PCR) POC Glucose 143 H 110 03/09/18 03/09/18 04:05 06:26 WBC RBC Hgb Hct MCV MCH MCHC RDW RDW Differential Plt Count MPV Immature Gran % (Auto) Neut % (Auto) Lymph % (Auto) [place] % (Auto) Eos % (Auto) Baso % (Auto) Absolute Neuts (auto) Absolute Lymphs (auto) Total Counted Differential Comment Plt Morphology Comment Anisocytosis Macrocytosis Ovalocytes Specimen Type Sample Site VBG pH VBG pO2 VBG O2 Sat (Calc) VBG O2 Content VBG Base Excess POC Mix VBG pCO2 Pt Tmp O2 Delivery Device Liter Flow Blood Gas Notified Whom Blood Gas Notified Time Sodium 139 Potassium 4.6 Chloride 102 Carbon Dioxide 27.0 Anion Gap 10 BUN 31 H Creatinine 1.25 H Estim Creat Clear Calc 46.30 Est GFR (MDRD) Af Amer 57 L Est GFR (MDRD) Non-Af 48 L BUN/Creatinine Ratio 24.8 H Glucose 111 H Lactic Acid Calcium 8.4 L Troponin I Digoxin MRSA (PCR) POC Glucose 114 H Medical Necessity - Tobacco Use Smoking Status: Never smoker Tobacco Use: Non-smoker Assessment/Plan All Active Problems (Last Reviewed 03/08/18 @ 02:42 by Nick Tamez DO) History of non-Hodgkin's lymphoma (Resolved) [facility] use of drug (Acute) Pain, axillary (Acute) Anemia (Acute) Metabolic acidosis (Acute) Hyperkalemia (Acute) Syncope (Acute) FAN (acute kidney injury) (Acute) RECOMMENDATIONS: 1. Possible consultation with cardiology 2. Continue with sliding scale insulin 3. Possible transfer from the intensive care unit later today if blood pressure appropriate 4. Increase activity as tolerated IMPRESSIONS: 1. Acute respiratory insufficiency secondary to lactic acidosis Clinical suspicion for lactic acidosis secondary to metformin given new onset renal failure. Patient's respiratory status has greatly improved since presentation. No repeat ABG at this time. Chemistries show improvement in renal function and resolution of metabolic acidosis. No signs of pulmonary edema on physical exam. Saturating well on room air. 2. Acute on chronic kidney disease stage III Clinical suspicion for dehydration leading to elevation of creatinine decreased clearance. Possible reinitiation of diuretics. Bicarbonate drip has been discontinued. Will hold IV fluids given improved blood pressure.. Patient is nauseous. Would avoid boluses if possible as patient would be at high risk for development of pulmonary edema. Patient does not have an acute abdomen at this time. Liver function shows slight elevation of bilirubin, but pancreatic enzymes are unremarkable. 3. Chronic systolic congestive heart failure Last known ejection fraction of 25% in 2015. Blood pressure medications are on hold at this time. Echocardiogram does show a decrease of function compared to previous. Patient sees Dr. Ch at baseline. Possible consultation with Dr. Ch for recommendations. Unclear if patient had an element of cardiogenic shock yesterday secondary to acidosis with decreased cardiac function. Low clinical suspicion for septic shock at this time. 4. Obesity/non-Hodgkin's lymphoma/fibromyalgia/sleep apnea/diabetes mellitus type 2 Complicates care, management, recovery and prognosis. Will hold on diabetic medications at this time. Sliding scale insulin if needed. Code Visit Inpatient E&M: [id number] [facility] Hosp L3
--- NOTE | 2018-03-09 08:47 | CASEMGMT ---
Addendum entered by Brittany Yousif 03/09/18 09:40: SW participated in ICU rounds today, pt may leave ICU later today. SW did ask pt after rounds about completing POA forms. Pt states she does not want to complete the paperwork at this time. SW explained that without the papers, if decisions were needed to be made if she was not able to make decisions for herself, it would fall to her parents. Pt states this is who she would think would make decisions anyway. SW continues to be available for any social service needs. SHO Allen, PLASTERER TENDER Original Note: SW spoke w/pt this morning briefly in regard to her friend passing away recently. Pt reports being upset but is coping. SW inquired about counseling should she feel she needs it, pt is familiar with agencies in the area. When asked further, pt states she is actually in counseling at present at [facility]. No other supportive needs identified at this time, pt already in counseling. SW available should any other needs arise. SHO Allen, PLASTERER TENDER
[2018-03-09 08:58] LABS: Hemoglobin A1c 5.7 % (4.2-6.3)
[2018-03-09 09:10] LABS: Lactic Acid 1.7 mmol/L (0.4-2.0)
[2018-03-09 09:11] LABS: Ferritin 97 ng/mL (8-252); Iron 24 ug/dL (50-170); Iron Binding Capacity,Total 380 ug/dL (250-450); PERCENT IRON SATURATION 6.3 % (15.0-55.0)
--- NOTE | 2018-03-09 09:34 | PCM.PACRNU ---
Pacer Nurse Hospital Visit Notes: Single Chamber ICD Evaluation: Interrogation completed at bedside ICU #7 per MD order. Interrogation shows no VT/VF episodes since last check 11/10/17. Left pectoral pocket/incision w/o s/s of infection or erosion. Presenting rhythm shows Ventricular sensed rhythm @ 99 bpm. No Alerts noted. AGRICULTURAL PILOT= <1%. Estimated battery life 8.2 to 8.7 yrs. Lead impedance, sensing and pace/sense threshold remain stable. No parameter changes made. Counters cleared. Pt was scheduled for device check on 03/10/18. Cancelled and rescheduled for in 3 mos. S. Raheel RN - Pacer Check Procedure Procedures: [id number] ICD Eval Single
[2018-03-09] MEDS: Glucerna Shake 120 ML LIQUID PO ×3 (09:46→21:56)
[2018-03-09] MEDS: Heparin Injection (Vial) 5,000 UNIT/ML VIAL 5000 UNIT SC (09:47)
[2018-03-09] MEDS: Carvedilol 3.125 MG TABLET PO ×2 (09:47→21:56)
--- NOTE | 2018-03-09 09:55 | VDUE_ITS ---
Version 2 Left Proximal Left jugular vein is spontaneous, widely patent, phasic, with no intraluminal echogenicity noted. Left subclavian vein is spontaneous, widely patent, phasic, with no intraluminal echogenicity noted. Left Arm Axillary V is dilated and noncompressible with decreased flow. Brachial V is dilated and noncompressible with no flow. Cephalic V is dilated and noncompressible. Basilic V is dilated and noncompressible. Left Lower Arm Left radial vein is compressible. Left ulnar vein is compressible. Prelim to the pt's RN. < Interpretation Summary Acute deep vein thrombosis is noted in the left axillary vein. Acute deep vein thrombosis is noted in the left brachial vein. The remainder of the left upper extremity deep venous system is patent. Acute superficial thrombophlebitis is noted in the left basilic and cephalic veins. Ordering Physician: Patrick Willson Referring Physician: María Elena Montes De Oca Performed By: Orlando Galvan RVT ??? Version 2 < Interpretation Summary Ordering Physician: Patrick Willson Referring Physician: María Elena Montes De Oca Performed By: Orlando Galvan RVT
--- NOTE | 2018-03-09 10:28 | NURSING ---
venous and arterial duplex in progress
[2018-03-09 11:31] LABS: Bedside Glucose 137 mg/dL (70-110)
[2018-03-09] MEDS: Acetaminophen 325 MG Tablet 650 MG PO (14:26)
[2018-03-09] MEDS: APIXABAN 5 MG TABLET PO ×2 (16:00→21:57)
[2018-03-09 16:11] LABS: Bedside Glucose 135 mg/dL (70-110)
--- NOTE | 2018-03-09 18:20 | PCM.CONS.C ---
Reason for Consult Date of Consultation: 03/09/18 Reason for Consultation: Evaluation of cardiac status History of Present Illness: The patient is a 53 year old F with past medical history listed below, who was brought to [facility] on 03/08/2018 after being found unresponsive in the bathroom. Patient reportedly was noted to be hypoglycemic by EMS with a blood sugar of 30 and was given oral glucose. Patient had been complaining of epigastric pain and was recently treated with Carafate. Patient reportedly had a syncopal event while trying to go to the bathroom. Patient reportedly has been under a lot of stress lately, but there is no suicidal or homicidal ideation. Patient does have a history of non-Hodgkin's lymphoma, diabetes, nonischemic cardiomyopathy (EF 25%) and anemia. On presentation, patient was normotensive and 100% on room air. Patient was noted to be significantly tachypneic at 33 breaths per minute. Laboratory workup showed a significant lactic acidosis of 12.4 without ketones. Digoxin level was noted at 0.32. Potassium was elevated at 7.6 and creatinine at 1.9. Patient was placed on a bicarb drip and then transferred to the intensive care unit. While in the intensive care unit the patient required significant pressor support. As part of her workup an echocardiogram was performed which demonstrated globally reduced left ventricular ejection fraction estimated to be between 10 and 15%. She also had mildly elevated troponin and cardiology was called to render an opinion. She had previously denied any chest arm or neck discomfort suggest angina. She does have a previous history of nonischemic cardiomyopathy status post ICD implantation. The latter was revised approximately a month ago. Past Medical History Allergies/Adverse Reactions: Allergies amitriptyline Adverse Reaction (Severe, Verified 11/28/17 11:08) Nightmares naproxen sodium [From Aleve] Adverse Reaction (Severe, Verified 11/28/17 11:08) Swelling Nasal swelling - causing difficulty breathing Sulfa (Sulfonamide Antibiotics) Adverse Reaction (Intermediate, Verified 11/28/17 11:08) Rash Latex, Natural Rubber Adverse Reaction (Mild, Verified 11/28/17 11:08) Other irritates/smith the skin Home Medications: Ambulatory Orders Medication Instructions Recorded Amitriptyline HCl 1 - 2 mg PO QHS PRN 03/07/18 Carvedilol [Coreg] 0.5 tab PO BID 03/07/18 Cholecalciferol (Vitamin D3) 5,000 unit PO DAILY 03/07/18 [Vitamin D3] Clonazepam [Klonopin] 1 mg PO QHS 03/07/18 Digoxin 125 mcg PO DAILY 03/07/18 Folic Acid 1 mg PO BIDCM 03/07/18 Furosemide [Lasix] 40 mg PO DAILY 03/07/18 Gabapentin [Neurontin] 100 mg PO BID 03/07/18 Lamotrigine [Lamictal] 200 mg PO QHS 03/07/18 Levothyroxine [Synthroid] 50 mcg PO MOTUWETHFR 03/07/18 Levothyroxine [Synthroid] 50 mcg PO SUSA 03/07/18 Lisinopril [Zestril] 2.5 mg PO DAILY 03/07/18 Melatonin 3 mg PO DAILY 03/07/18 Metformin HCl [Glucophage] 2 tab PO BID 03/07/18 Omeprazole [Prilosec] 20 mg PO DAILY 03/07/18 Ondansetron HCl [Zofran] 4 mg PO Q8H PRN 03/07/18 Potassium Chloride [Klor-Con M20] 20 meq PO TID 03/07/18 Sennosides [Senokotxtra] 8.6 mg PO DAILY 03/07/18 Simvastatin [Zocor] 10 mg PO QHS 03/07/18 Spironolactone 12.5 mg PO DAILY 03/07/18 Venlafaxine HCl [Venlafaxine HCl 150 mg PO DAILY 03/07/18 ER] Vicodin 5-500 Mg Tablet 5 - 500 mg PO Q6H PRN 03/07/18 Past Medical History (Chronic Problems): Chronic Problems (Last Reviewed 03/08/18 @ 02:42 by Nick Tamez DO) Type 2 diabetes mellitus without complications (Chronic) S/P implantation of automatic cardioverter/defibrillator (AICD) (Chronic) 10/06/2009 @ [facility] Cardiomyopathy in other diseases classified elsewhere (Chronic) Abnormal electrocardiogram (Chronic) Shortness of breath (Chronic) Diffuse large B-cell lymphoma (Chronic) Surgical History: - - cholecystecomy - *Family History Maternal Family History: Family History (Last Reviewed 03/08/18 @ 02:42 by Nick Tamez DO) Father CVA (cerebral vascular accident) Diabetes Hypertension Mother Hypertension Brother Diabetes Hypertension History Items: Unknown Smoking Status: Never smoker Tobacco Use: Non-smoker Alcohol: None Drugs: None Review of Systems - Review of Systems General: Denies: Fever, Night Sweats, Fatigue Cardiovascular: Denies: Chest Discomfort, Shortness of Breath, Orthopnea, PND, Peripheral Edema, Palpitations, Lightheadedness, Dizziness, Near Syncope, Syncope Respiratory: Denies: Cough, Sputum Production, Hemoptysis Gastrointestinal: Denies: Hematemesis, Hematochezia, Melena Genitourinary: Denies: Dysuria, Hematuria Skin: Denies: Rash Subjectve: Pleasant lady at this time sitting in bed eating her birthday cake Objective: Vital Signs Temp Pulse Resp BP Pulse Ox 97.6 F L 104 H 19 H 87/72 L 95 03/09/18 18:00 03/09/18 18:00 03/09/18 18:00 03/09/18 18:00 03/09/18 18:00 Oxygen Flow Rate (L/min) 2 Oxygen Delivery Method Room Air Weight: 230 lb 2.601 oz Body Mass Index (BMI) 37.4 Intake and Output for Last 24 Hours 03/07/18 03/08/18 03/09/18 23:59 23:59 23:59 Intake Total 3218.2 / 3218.2 1544 / 1544 Output Total 430 / 430 300 / 300 Balance 2788.2 / 2788.2 1244 / 1244 General: Awake, Alert, Oriented x 3 HEENT: PERRL, EOMI, Sclera Non Icteric Neck: Supple, Good ROM, No Lymph Node Enlargement Lungs: Clear to auscultation Cardiovascular: Regular Rhythm, Normal S1, Normal S2, No Murmurs, No Rubs, No Gallops Vascular: No Carotid Bruits, Normal Femoral Pulses, Normal Radial Pulses, Normal Dorsalis Pedal Pulse, Normal Posterior Tibial Pulses Abdomen: Bowel Sounds Present, Soft, Non Tender, No HSM, No Organomegaly Extremities: No Cyanosis, No Clubbing, No edema Neurological: No Focal Motor or Sensory Deficit 03/09/18 04:05: WBC 8.3, RBC 3.17 L, Hgb 9.9 L, Hct 31.8 L, MCV 100.3 H, MCH 31.2, MCHC 31.1 L, RDW 19.2 H, RDW Differential 67.4 H, Plt Count 144 L, MPV 10.8, Immature Gran % (Auto) 0.200, Neut % (Auto) 81.8 H, Lymph % (Auto) 9.7 L, [place] % (Auto) 8.3, Eos % (Auto) 0.0, Baso % (Auto) 0.0, Absolute Neuts (auto) 6.8, Total Counted Not Reportable 03/09/18 04:05: Sodium 139, Potassium 4.6, Chloride 102, Carbon Dioxide 27.0, Anion Gap 10, BUN 31 H, Creatinine 1.25 H, Est GFR (MDRD) Af Amer 57 L, Est GFR (MDRD) Non-Af 48 L, BUN/Creatinine Ratio 24.8 H, Glucose 111 H, Calcium 8.4 L 03/09/18 08:25: Lactic Acid 1.7 03/09/18 08:25: Hemoglobin A1c 5.7 03/09/18 08:25: Iron 24 L, TIBC 380, Iron Saturation 6.3 L, Ferritin 97 Rhythm: EKG: Normal sinus rhythm with no acute changes ECHO: Globally reduced left ventricular systolic function estimated at 10-15% Assessment/Plan 1. Severe left ventricular systolic dysfunction with cardiogenic shock. Patient presented with severe acidosis the etiology of which was not entirely clear but likely secondary to medication such as metformin. I suspect her severe acidosis significant left ventricular systolic dysfunction and subsequent shock. She has been treated with intravenous pressor agents with significant improvement and at this time my recommendation will be to continue to wean her off and see how she does. At the appropriate time her beta-stephanie can be resumed at a low dose. Cautious diuresis would also be instituted. 2. Status post ICD implantation She does have a history of ICD implantation had defibrillator was checked today and it appears to be functioning well with no VT or VF episodes. We will continue to follow her in our pacemaker clinic. 3. DVT of left upper extremity. The ICD was changed out there was no manipulation of the leads and therefore I do not think that this is a potential etiology of the upper extremity DVT. I would however suggest that we anticoagulate her with Eliquis 2.5 mg twice a day. I discussed the above with protection chief industrial plant who is in agreement. 4. Abnormal cardiac enzymes. She did manifest significantly abnormal cardiac enzymes in the non-ST elevation myocardial infarction range. She was on high-dose pressor agents and with his severe acidosis I suspect that this was likely secondary to demand ischemia. She has previously been documented to have normal coronary arteries and with a global nature of her left ventricular systolic dysfunction I suspect the above is not secondary to an epicardial narrowing of her coronary anatomy. I would recommend we continue watchful waiting and risk factor modification. I have discussed the above with the patient, the hospitalist protection chief [employer] and the family. All in agreement.
[2018-03-09] MEDS: Insulin Lispro 100 UNIT/ML INSULN.PEN SC (21:57)
[2018-03-09] MEDS: lamoTRIgine 100 MG Tablet 200 MG PO (21:58)
[2018-03-09] MEDS: clonazePAM 1 MG Tablet PO (22:01)
[2018-03-09 22:16] LABS: Bedside Glucose 150 mg/dL (70-110)
[2018-03-10] VITALS (19 sets, daily range): BP systolic 78–103; BP diastolic 59–80; PULSE 78–98; RESP 14–24; TEMP 36–36.4; O2SAT 92–100
[2018-03-10 04:30] LABS: Absolute Lymphocyte Count 1.07 X10^3/ul (0.83-4.51); Absolute Neutrophil Count 3.9 X10^3/uL (2.0-7.7); Basophil# 0.01 X10^3/uL; Basophil% 0.2 % (0-1); Eosinophil# 0.12 X10^3/uL; Eosinophils% 2.1 % (0-5); Hematocrit 30.6 % (37-47); Hemoglobin 9.6 g/dl (12.0-15.0); Lymphocyte # 1.07 X10^3/ul (4.0); Mean Corp Hgb Conc 31.4 g/gl (32-36); Mean Corpuscular Hgb 31.8 pg (27.0-32.0); Mean Corpuscular Volume 101.3 fL (81-99); Mean Platelet Vol. 10.5 fl (6.2-12.0); Monocyte# 0.51 X10^3/uL; Monocyte% 9.1 % (0-10); Neutrophil % 69.4 % (47-70); Platelet Count 130 K/mm3 (150-450); RBC Distribution Width CV 19.1 % (11.6-14.6); RBC Distribution Width SD 68.7 fl (35.1-43.9); Red Blood Count 3.02 M/mm3 (4.2-5.4); White Blood Count 5.6 K/mm3 (4.4-11.0)
[2018-03-10 04:33] LABS: Differential Indicated SCAN CRITERIA MET; POSITIVE COUNT NO; POSITIVE DIFFERENTIAL NO; POSITIVE MORPHOLOGY YES
[2018-03-10 04:43] LABS: Anion Gap 9 (5-15); BUN 29 mg/dL (7-18); BUN/Creat Ratio 27.6 RATIO (10-20); Calcium,Total 8.4 mg/dL (8.5-10.1); Chloride 102 mmol/L (98-107); Creatinine, Serum 1.05 mg/dL (0.55-1.02); EST Glomerular Filtration Rate 58 mL/min (>60); Est Glom Filt Rate - Afr Amer 70 mL/min (>60); Estimated Creatinine Clearance 55.12 ml/min; Glucose 113 mg/dL (74-106); Potassium 4.1 mmol/L (3.5-5.1); Sodium Level 139 mmol/L (136-145)
[2018-03-10 05:25] LABS: Differential Comment SCANNED; Hypochromasia 2+; Macrocytosis 3+
[2018-03-10 05:26] LABS: Crenated RBC RARE; Ovalocyte 1+
[2018-03-10] MEDS: Nystatin Powder 15gm Bottle 1 APPLIC TOPICAL ×3 (05:26→21:23)
[2018-03-10] MEDS: Levothyroxine 50 MCG Tablet PO (05:26)
[2018-03-10] MEDS: CHLORHEXIDINE GLUC 2% CLOTH 1 EACH TOWELETTE TOPICAL (05:26)
[2018-03-10 06:30] LABS: Bedside Glucose 98 mg/dL (70-110)
--- NOTE | 2018-03-10 07:27 | PN_ITS ---
Subjective: Patient did well overnight. No acute issues were reported. Patient did have an upper extremity Doppler showing a DVT yesterday. Patient was initiated on anticoagulation therapy. No bleeding complications have been reported. Patient has not had to be restarted on pressor therapy. Objective: Left upper extremity arterial flow within normal limits. However, acute deep vein thrombosis noted in left axillary vein, left brachial vein and superficial systems. General: Alert, Oriented x3, Cooperative, No apparent distress, - - Speaking in full sentences. HEENT: Atraumatic, PERRLA, EOMI, Normocephalic, - - No scleral icterus or injection noted. Oral: Moist Mucosa, No Gingival or Mucosal Lesions/ Ulcerations Neck: Supple, No JVD, No Nodes, Trachea Midline Lungs: No rhonchi, No wheeze, No rales, Diminished, - - Symmetric expansion. No dullness to percussion. Cardiovascular: Regular rate, Regular Rhythm, Normal S1, Normal S2, Murmur, No rub noted, No Gallop Abdomen: Bowel Sounds Present, Soft, Non Tender, Non-Distended, Obese Extremities: No clubbing, Edema - Greater and left upper extremity., - - Upper extremity with improved cyanosis and warmth compared to yesterday afternoon. Skin: - - Less mottling noted of the left upper extremity Musculoskeletal: No Tenderness to Palpation of Joints or Extremities, No Muscle Wasting Lymphatic: No Cervical, Supraclavicular, or Inguinal Adenopathy Neurological: Cranial nerves II-XII grossly intact, Neuro grossly intact, Motor Exam 5/5 strength throughout Psych/Mental Status: Alert and oriented to time, place, person, mood and affect Vital Signs Temp Pulse Resp BP Pulse Ox 36.4 C L 90 18 92/77 100 03/10/18 00:00 03/10/18 07:00 03/10/18 07:00 03/10/18 07:00 03/10/18 07:00 Oxygen Flow Rate (L/min) 2 Oxygen Delivery Method Room Air Weight: 105.7 kg Body Mass Index (BMI) 37.4 Intake and Output for Last 24 Hours 03/08/18 03/09/18 03/10/18 23:59 23:59 23:59 Intake Total 3218.2 / 3218.2 1848.7 / 1848.7 289.3 / 289.3 Output Total 430 / 430 300 / 300 Balance 2788.2 / 2788.2 1548.7 / 1548.7 289.3 / 289.3 Labs (Last 48 Hours) 03/08/18 03/08/18 03/08/18 07:50 07:55 07:55 WBC RBC Hgb Hct MCV MCH MCHC RDW RDW Differential Plt Count MPV Immature Gran % (Auto) Neut % (Auto) Lymph % (Auto) [place] % (Auto) Eos % (Auto) Baso % (Auto) Absolute Neuts (auto) Absolute Lymphs (auto) Total Counted Differential Comment Plt Morphology Comment RBC Morphology Hypochromasia Anisocytosis Macrocytosis Ovalocytes Sodium Potassium Chloride Carbon Dioxide Anion Gap BUN Creatinine Estim Creat Clear Calc Est GFR (MDRD) Af Amer Est GFR (MDRD) Non-Af BUN/Creatinine Ratio Glucose Hemoglobin A1c Lactic Acid Calcium Iron TIBC Iron Saturation Ferritin Troponin I 0.781 H* Digoxin 0.23 L POC Glucose 211 H 03/08/18 03/08/18 03/08/18 11:15 11:15 11:15 WBC 7.6 RBC 3.27 L Hgb 10.4 L Hct 33.2 L MCV 101.5 H MCH 31.8 MCHC 31.3 L RDW 18.9 H RDW Differential 67.7 H Plt Count 166 MPV 11.3 Immature Gran % (Auto) 0.300 Neut % (Auto) 85.3 H Lymph % (Auto) 7.6 L [place] % (Auto) 6.8 Eos % (Auto) 0.0 Baso % (Auto) 0.0 Absolute Neuts (auto) 6.5 Absolute Lymphs (auto) 0.58 L Total Counted Not Reportable Differential Comment Plt Morphology Comment LARGE RBC Morphology Hypochromasia Anisocytosis 1+ Macrocytosis Ovalocytes Sodium 139 Potassium 5.1 Chloride 102 Carbon Dioxide 24.0 Anion Gap 13 BUN 31 H Creatinine 1.60 H Estim Creat Clear Calc 36.59 Est GFR (MDRD) Af Amer 43 L Est GFR (MDRD) Non-Af 36 L BUN/Creatinine Ratio 19.4 Glucose 220 H Hemoglobin A1c Lactic Acid 6.5 H* Calcium 8.3 L Iron TIBC Iron Saturation Ferritin Troponin I Digoxin POC Glucose 03/08/18 03/08/18 03/08/18 11:16 16:08 21:58 WBC RBC Hgb Hct MCV MCH MCHC RDW RDW Differential Plt Count MPV Immature Gran % (Auto) Neut % (Auto) Lymph % (Auto) [place] % (Auto) Eos % (Auto) Baso % (Auto) Absolute Neuts (auto) Absolute Lymphs (auto) Total Counted Differential Comment Plt Morphology Comment RBC Morphology Hypochromasia Anisocytosis Macrocytosis Ovalocytes Sodium Potassium Chloride Carbon Dioxide Anion Gap BUN Creatinine Estim Creat Clear Calc Est GFR (MDRD) Af Amer Est GFR (MDRD) Non-Af BUN/Creatinine Ratio Glucose Hemoglobin A1c Lactic Acid Calcium Iron TIBC Iron Saturation Ferritin Troponin I Digoxin POC Glucose 213 H 143 H 110 03/09/18 03/09/18 03/09/18 04:05 04:05 06:26 WBC 8.3 RBC 3.17 L Hgb 9.9 L Hct 31.8 L MCV 100.3 H MCH 31.2 MCHC 31.1 L RDW 19.2 H RDW Differential 67.4 H Plt Count 144 L MPV 10.8 Immature Gran % (Auto) 0.200 Neut % (Auto) 81.8 H Lymph % (Auto) 9.7 L [place] % (Auto) 8.3 Eos % (Auto) 0.0 Baso % (Auto) 0.0 Absolute Neuts (auto) 6.8 Absolute Lymphs (auto) 0.81 L Total Counted Not Reportable Differential Comment SCANNED Plt Morphology Comment RBC Morphology Hypochromasia Anisocytosis Macrocytosis 2+ Ovalocytes 1+ Sodium 139 Potassium 4.6 Chloride 102 Carbon Dioxide 27.0 Anion Gap 10 BUN 31 H Creatinine 1.25 H Estim Creat Clear Calc 46.30 Est GFR (MDRD) Af Amer 57 L Est GFR (MDRD) Non-Af 48 L BUN/Creatinine Ratio 24.8 H Glucose 111 H Hemoglobin A1c Lactic Acid Calcium 8.4 L Iron TIBC Iron Saturation Ferritin Troponin I Digoxin POC Glucose 114 H 03/09/18 03/09/18 03/09/18 08:25 08:25 08:25 WBC RBC Hgb Hct MCV MCH MCHC RDW RDW Differential Plt Count MPV Immature Gran % (Auto) Neut % (Auto) Lymph % (Auto) [place] % (Auto) Eos % (Auto) Baso % (Auto) Absolute Neuts (auto) Absolute Lymphs (auto) Total Counted Differential Comment Plt Morphology Comment RBC Morphology Hypochromasia Anisocytosis Macrocytosis Ovalocytes Sodium Potassium Chloride Carbon Dioxide Anion Gap BUN Creatinine Estim Creat Clear Calc Est GFR (MDRD) Af Amer Est GFR (MDRD) Non-Af BUN/Creatinine Ratio Glucose Hemoglobin A1c 5.7 Lactic Acid 1.7 Calcium Iron 24 L TIBC 380 Iron Saturation 6.3 L Ferritin 97 Troponin I Digoxin POC Glucose 03/09/18 03/09/18 03/09/18 11:28 15:59 21:55 WBC RBC Hgb Hct MCV MCH MCHC RDW RDW Differential Plt Count MPV Immature Gran % (Auto) Neut % (Auto) Lymph % (Auto) [place] % (Auto) Eos % (Auto) Baso % (Auto) Absolute Neuts (auto) Absolute Lymphs (auto) Total Counted Differential Comment Plt Morphology Comment RBC Morphology Hypochromasia Anisocytosis Macrocytosis Ovalocytes Sodium Potassium Chloride Carbon Dioxide Anion Gap BUN Creatinine Estim Creat Clear Calc Est GFR (MDRD) Af Amer Est GFR (MDRD) Non-Af BUN/Creatinine Ratio Glucose Hemoglobin A1c Lactic Acid Calcium Iron TIBC Iron Saturation Ferritin Troponin I Digoxin POC Glucose 137 H 135 H 150 H 03/10/18 03/10/18 03/10/18 04:12 04:12 06:24 WBC 5.6 RBC 3.02 L Hgb 9.6 L Hct 30.6 L MCV 101.3 H MCH 31.8 MCHC 31.4 L RDW 19.1 H RDW Differential 68.7 H Plt Count 130 L MPV 10.5 Immature Gran % (Auto) 0.200 Neut % (Auto) 69.4 Lymph % (Auto) 19.0 [place] % (Auto) 9.1 Eos % (Auto) 2.1 Baso % (Auto) 0.2 Absolute Neuts (auto) 3.9 Absolute Lymphs (auto) 1.07 Total Counted Not Reportable Differential Comment SCANNED Plt Morphology Comment RBC Morphology RARE Hypochromasia 2+ Anisocytosis Macrocytosis 3+ Ovalocytes 1+ Sodium 139 Potassium 4.1 Chloride 102 Carbon Dioxide 28.0 Anion Gap 9 BUN 29 H Creatinine 1.05 H Estim Creat Clear Calc 55.12 Est GFR (MDRD) Af Amer 70 Est GFR (MDRD) Non-Af 58 L BUN/Creatinine Ratio 27.6 H Glucose 113 H Hemoglobin A1c Lactic Acid Calcium 8.4 L Iron TIBC Iron Saturation Ferritin Troponin I Digoxin POC Glucose 98 Medical Necessity - Tobacco Use Smoking Status: Never smoker Tobacco Use: Non-smoker Assessment/Plan All Active Problems (Last Reviewed 03/08/18 @ 02:42 by Nick Tamez DO) History of non-Hodgkin's lymphoma (Resolved) retirement use of drug (Acute) Pain, axillary (Acute) Anemia (Acute) Metabolic acidosis (Acute) Hyperkalemia (Acute) Syncope (Acute) FAN (acute kidney injury) (Acute) RECOMMENDATIONS: 1. Continue with systemic anticoagulation 2. Continue with sliding scale insulin 3. Increase activity as tolerated 4. Okay to leave the intensive care unit from my perspective. 5. Hemodynamically stable on room air. Will sign off from a critical care perspective IMPRESSIONS: 1. Acute respiratory insufficiency secondary to lactic acidosis Clinical suspicion for lactic acidosis secondary to metformin given new onset renal failure. Patient's respiratory status has greatly improved since presentation. No repeat ABG at this time. Chemistries show improvement in renal function and resolution of metabolic acidosis. No signs of pulmonary edema on physical exam. Saturating well on room air. 2. Acute on chronic kidney disease stage III Clinical suspicion for dehydration leading to elevation of creatinine decreased clearance. Okay to reinitiate baseline diuretic therapy from my perspective. Would defer to cardiology. Consider substitution for metformin at baseline. 3. Chronic systolic congestive heart failure Last known ejection fraction of 25% in 2015. Blood pressure medications are on hold at this time. Echocardiogram does show a decrease of function compared to previous. Patient sees Dr. Ch at baseline and is seeing patient on consultation. Unclear if patient had an element of cardiogenic shock yesterday secondary to acidosis with decreased cardiac function. Low clinical suspicion for septic shock at this time. 4. Obesity/non-Hodgkin's lymphoma/fibromyalgia/sleep apnea/diabetes mellitus type 2 Complicates care, management, recovery and prognosis. Will hold on diabetic medications at this time. Sliding scale insulin if needed. Code Visit Inpatient E&M: [id number] [facility] L3
--- NOTE | 2018-03-10 08:11 | PCM.PN.HOSP ---
Patient Problems: Active and Suspected Problems (Last Reviewed 03/08/18 @ 02:42 by Nick Tamez DO) Metabolic acidosis (Acute) Hyperkalemia (Acute) Syncope (Acute) FAN (acute kidney injury) (Acute) Subjective: Patient was seen and examined. Diagnosed yesterday with left upper extremity DVT, started on Eliquis. Complains of feeling tired but denies any chest pain no dizziness or shortness of breath. Blood pressures have still remained less than 90 systolic, pulse more than 65 Defibrillator check showed no VT or VF episodes. Vitals/I&O's: Vital Signs Temp Pulse Resp BP Pulse Ox 97.6 F L 78 18 92/77 100 03/10/18 00:00 03/10/18 07:31 03/10/18 07:00 03/10/18 07:00 03/10/18 07:00 Oxygen Flow Rate (L/min) 2 Oxygen Delivery Method Room Air Weight: 105.7 kg Body Mass Index (BMI) 37.4 Intake and Output for Last 24 Hours 03/08/18 03/09/18 03/10/18 23:59 23:59 23:59 Intake Total 3218.2 / 3218.2 1848.7 / 1848.7 289.3 / 289.3 Output Total 430 / 430 300 / 300 Balance 2788.2 / 2788.2 1548.7 / 1548.7 289.3 / 289.3 General: Alert, Oriented x3, Cooperative, No apparent distress HEENT: Atraumatic, PERRLA, EOMI, Normocephalic Oral: Moist Mucosa Neck: Supple Lungs: Clear to auscultation, Normal air movement Cardiovascular: Regular rate, Regular Rhythm, Normal S1, Normal S2, No murmurs Abdomen: Bowel Sounds Present, Soft, Non Tender, Non-Distended, No Hepato-splenomegaly Extremities: - - LUE edema, good pulses, slightly tender Skin: No rashes, No breakdown Musculoskeletal: No Tenderness to Palpation of Joints or Extremities Lymphatic: No Cervical, Supraclavicular, or Inguinal Adenopathy Neurological: Cranial nerves II-XII grossly intact Psych/Mental Status: Normal Affect, Appropriate Laboratory Results 03/09/18 08:25: Lactic Acid 1.7 03/09/18 08:25: Hemoglobin A1c 5.7 03/09/18 08:25: Iron 24 L, TIBC 380, Iron Saturation 6.3 L, Ferritin 97 03/09/18 11:28: POC Glucose 137 H 03/09/18 15:59: POC Glucose 135 H 03/09/18 21:55: POC Glucose 150 H 03/10/18 04:12: WBC 5.6, RBC 3.02 L, Hgb 9.6 L, Hct 30.6 L, MCV 101.3 H, MCH 31.8, MCHC 31.4 L, RDW 19.1 H, RDW Differential 68.7 H, Plt Count 130 L, MPV 10.5, Immature Gran % (Auto) 0.200, Neut % (Auto) 69.4, Lymph % (Auto) 19.0, [place] % (Auto) 9.1, Eos % (Auto) 2.1, Baso % (Auto) 0.2, Absolute Neuts (auto) 3.9, Absolute Lymphs (auto) 1.07, Total Counted Not Reportable, Differential Comment SCANNED, RBC Morphology RARE, Hypochromasia 2+, Macrocytosis 3+, Ovalocytes 1+ 03/10/18 04:12: Sodium 139, Potassium 4.1, Chloride 102, Carbon Dioxide 28.0, Anion Gap 9, BUN 29 H, Creatinine 1.05 H, Estim Creat Clear Calc 55.12, Est GFR (MDRD) Af Amer 70, Est GFR (MDRD) Non-Af 58 L, BUN/Creatinine Ratio 27.6 H, Glucose 113 H, Calcium 8.4 L 03/10/18 06:24: POC Glucose 98 Current Medications Acetaminophen (Tylenol) 650 mg PO Q6H PRN PRN PRN Reason: Mild Pain (1-3)/Temp > 100.7 F Last Admin: 03/09/18 14:26 Dose: 650 mg Apixaban (Eliquis) 5 mg PO BID [facility] Last Admin: 03/09/18 21:57 Dose: 5 mg Carvedilol (Coreg) 3.125 mg PO BID [facility] Last Admin: 03/09/18 21:56 Dose: 3.125 mg Chlorhexidine Gluconate () 1 each TOPICAL DAILY [facility] Last Admin: 03/10/18 05:26 Dose: 1 each Clonazepam (Klonopin) 1 mg PO QHS [facility] Last Admin: 03/09/18 22:01 Dose: 1 mg Sodium Chloride () 250 mls @ 15 mls/hr IV .[id number] PRN PRN Reason: SALINE FLUSH Sodium Chloride () 1,000 mls @ 15 mls/hr IV .Q48H [facility] PRN Reason: KVO Last Admin: 03/09/18 09:26 Dose: Not Given Insulin Human Lispro (Humalog Kwikpen (Bkc)) 0 unit SC ACHS [facility] PRN Reason: Protocol Last Admin: 03/10/18 06:44 Dose: Not Given Lamotrigine (Lamictal) 200 mg PO QHS [facility] Last Admin: 03/09/18 21:58 Dose: 200 mg Levothyroxine Sodium (Synthroid) 50 mcg PO MoTuWeThFr@0600 [facility] Last Admin: 03/10/18 05:26 Dose: 50 mcg Levothyroxine Sodium (Synthroid) 50 mcg PO SuSa@0600 [facility] Magnesium Hydroxide (Milk Of Magnesia) 30 ml PO DAILY PRN PRN PRN Reason: Constipation Nutritional Formula (Lactose Free) (Glucerna Shake) 120 ml PO 4X/DAY [facility] Last Admin: 03/09/18 21:56 Dose: 120 ml Nystatin (Mycostatin Powder) 1 applic TOPICAL TID [facility] PRN Reason: Protocol Last Admin: 03/10/18 05:26 Dose: 1 applic Ondansetron HCl (Zofran) 4 mg IV Q8H PRN PRN PRN Reason: NAUSEA Last Admin: 03/08/18 08:05 Dose: 4 mg Ondansetron HCl (Zofran Odt) 4 mg PO Q8H PRN PRN PRN Reason: NAUSEA/VOMITING Sodium Chloride () 10 - 40 ml IV UD PRN PRN Reason: MULTILUMEN/HICMAN CATH FLUSH Last Admin: 03/09/18 09:47 Dose: 10 ml Medical Necessity - Tobacco Use Smoking Status: Never smoker Tobacco Use: Non-smoker Assessment/Plan All Active Problems (Last Reviewed 03/08/18 @ 02:42 by Nick Tamez DO) History of non-Hodgkin's lymphoma (Resolved) long-term use of drug (Acute) Pain, axillary (Acute) Anemia (Acute) Metabolic acidosis (Acute) Hyperkalemia (Acute) Syncope (Acute) FAN (acute kidney injury) (Acute) 52 year old female with past medical history of type 2 DM on metformin and insulin, hypertension, nonischemic cardiomyopathy, EF of 25% in 2015, status post AICD implantation, history of known non-Hodgkins lymphoma admitted on 03/08/18 with unresponsiveness. Was found to have acute DVT of the left upper extremity on 613 2017 and started on anticoagulation. 1. Acute DVT of the left upper extremity, likely provoked from being not active and being found unresponsive, patient started on Eliquis, will continue 2. Acute metabolic encephalopathy secondary to #2, resolved. 3. Metabolic acidosis with lactic acidosis, likely secondary to unresponsiveness/metformin/acute kidney injury, resolved 3. Shock, cardiogenic, history of nonischemic cardiomyopathy, EF 15%, was on Levophed for less than 1 day, blood pressures have been in the systolic 90s, will continue to monitor. 4. Elevated troponin secondary to demand ischemia related to metabolic acidosis, underlying known ischemic cardiomyopathy with EF of 15%, history of AICD, 5. Hyperkalemia, resolved. 6. Acute kidney injury, prerenal, baseline creatinine of 1.17 about a month ago, improving, admitting Cr is 1.90, 1.25 today, on NS 75mls/hr, will continue to monitor. 7. Type 2 DM, Hgb A1c is 5.7, not on metformin, would not discharged on metformin, will continue Accu-Cheks for now as well as ISS 8. Code Status: Full code. 9. DVT prophylaxis with subcu heparin Code Visit Inpatient E&M: 05779 [facility] Hosp L3
[2018-03-10] MEDS: Glucerna Shake 120 ML LIQUID PO ×2 (09:41→21:23)
[2018-03-10] MEDS: Acetaminophen 325 MG Tablet 650 MG PO (09:41)
[2018-03-10] MEDS: Carvedilol 3.125 MG TABLET PO ×2 (09:41→21:21)
[2018-03-10] MEDS: APIXABAN 5 MG TABLET PO ×2 (10:16→22:15)
--- NOTE | 2018-03-10 10:17 | CASEMGMT ---
Addendum entered by Brittany Yousif 03/10/18 10:56: SW spoke w/Jenaro from [facility], they can take pt and she will come over to meet pt. Green sheet placed on chart in anticipation of weekend discharge. SHO Allen, [employer] ENGINEER Original Note: SW spoke w/pt in room in regard to discharge plan. Pt wants to go home, does not want to go to a senior care. Pt lives w/her brother and parents, and states they can help her at home as needed. Pt is agreeable to home health, has not had home health in the past. Pt does not have a preference for agency. SW called [facility], message left for Jenaro. SW will continue to follow. SHO Allen, CONDUCTOR AND ENGINEER
[2018-03-10 11:26] LABS: Bedside Glucose 99 mg/dL (70-110)
[2018-03-10] MEDS: oxyCODONE 5 MG Tablet PO (14:02)
[2018-03-10 16:41] LABS: Bedside Glucose 143 mg/dL (70-110)
[2018-03-10] MEDS: lamoTRIgine 100 MG Tablet 200 MG PO (21:20)
[2018-03-10] MEDS: Insulin Lispro 100 UNIT/ML INSULN.PEN SC (21:21)
[2018-03-10] MEDS: clonazePAM 1 MG Tablet PO (21:28)
[2018-03-10 22:01] LABS: Bedside Glucose 151 mg/dL (70-110)
[2018-03-11] VITALS (10 sets, daily range): BP systolic 92–108; BP diastolic 60–74; PULSE 81–107; RESP 17–18; TEMP 36.6; O2SAT 93–100
[2018-03-11] MEDS: Nystatin Powder 15gm Bottle 1 APPLIC TOPICAL ×2 (05:41→21:42)
[2018-03-11] MEDS: Levothyroxine 50 MCG Tablet PO (05:41)
[2018-03-11 06:56] LABS: Bedside Glucose 122 mg/dL (70-110)
[2018-03-11] MEDS: Carvedilol 3.125 MG TABLET PO (09:03)
[2018-03-11] MEDS: APIXABAN 5 MG TABLET PO ×2 (09:03→21:42)
[2018-03-11 12:10] LABS: Bedside Glucose 94 mg/dL (70-110)
[2018-03-11] MEDS: Glucerna Shake 120 ML LIQUID PO ×2 (14:47→18:29)
[2018-03-11 15:44] LABS: Anion Gap 11 (5-15); BUN 29 mg/dL (7-18); BUN/Creat Ratio 25.9 RATIO (10-20); Calcium,Total 8.6 mg/dL (8.5-10.1); Chloride 102 mmol/L (98-107); Creatinine, Serum 1.12 mg/dL (0.55-1.02); EST Glomerular Filtration Rate 54 mL/min (>60); Est Glom Filt Rate - Afr Amer 65 mL/min (>60); Estimated Creatinine Clearance 51.67 ml/min; Glucose 142 mg/dL (74-106); Potassium 4.5 mmol/L (3.5-5.1); Sodium Level 137 mmol/L (136-145)
[2018-03-11 17:16] LABS: Bedside Glucose 142 mg/dL (70-110)
--- NOTE | 2018-03-11 17:16 | PCM.PN.HOSP ---
Patient Problems: Active and Suspected Problems (Last Reviewed 03/08/18 @ 02:42 by Nick Tamez DO) Metabolic acidosis (Acute) Hyperkalemia (Acute) Syncope (Acute) FAN (acute kidney injury) (Acute) Subjective: He was seen and examined. No new complaints. Feels very tired. She will be discharged home with home health. Denies any dizziness or palpitations. Feels improved. Objective: Physical exam: General: Alert, Oriented x3, Cooperative, No apparent distress HEENT: Atraumatic, PERRLA, EOMI, Normocephalic Oral: Moist Mucosa Neck: Supple, No JVD, Negative Carotid Bruits Lungs: Clear to auscultation, Normal air movement Cardiovascular: Regular rate, Regular Rhythm, Normal S1, Normal S2, No murmurs Abdomen: Bowel Sounds Present, Soft, Non Tender, Non-Distended, No Hepato-splenomegaly, - - IV access for cardiac cath in the right groin, no hematoma Extremities: No edema Skin: No rashes Musculoskeletal: No Tenderness to Palpation of Joints or Extremities Lymphatic: No Cervical, Supraclavicular, or Inguinal Adenopathy Neurological: Cranial nerves II-XII grossly intact Psych/Mental Status: Normal Affect, Appropriate Vitals/I&O's: Vital Signs Temp Pulse Resp BP Pulse Ox 97.9 F 94 18 98/72 94 03/11/18 15:06 03/11/18 15:06 03/11/18 15:06 03/11/18 15:06 03/11/18 15:06 Oxygen Flow Rate (L/min) 2 Oxygen Delivery Method Room Air Weight: 105.3 kg Body Mass Index (BMI) 37.4 Intake and Output for Last 24 Hours 03/09/18 03/10/18 03/11/18 23:59 23:59 23:59 Intake Total 1848.7 / 1848.7 514.3 / 514.3 600 / 600 Output Total 300 / 300 300 / 300 300 / 300 Balance 1548.7 / 1548.7 214.3 / 214.3 300 / 300 Laboratory Results 03/10/18 21:15: POC Glucose 151 H 03/11/18 06:44: POC Glucose 122 H 03/11/18 12:06: POC Glucose 94 03/11/18 14:40: Sodium 137, Potassium 4.5, Chloride 102, Carbon Dioxide 24.0, Anion Gap 11, BUN 29 H, Creatinine 1.12 H, Estim Creat Clear Calc 51.67, Est GFR (MDRD) Af Amer 65, Est GFR (MDRD) Non-Af 54 L, BUN/Creatinine Ratio 25.9 H, Glucose 142 H, Calcium 8.6 03/11/18 16:41: POC Glucose Pending Current Medications Acetaminophen (Tylenol) 650 mg PO Q6H PRN PRN PRN Reason: Mild Pain (1-3)/Temp > 100.7 F Last Admin: 03/10/18 09:41 Dose: 650 mg Apixaban (Eliquis) 5 mg PO BID [facility] Last Admin: 03/11/18 09:03 Dose: 5 mg Carvedilol (Coreg) 3.125 mg PO BID [facility] Last Admin: 03/11/18 09:03 Dose: 3.125 mg Chlorhexidine Gluconate () 1 each TOPICAL DAILY [facility] Last Admin: 03/11/18 09:02 Dose: Not Given Clonazepam (Klonopin) 1 mg PO QHS [facility] Last Admin: 03/10/18 21:28 Dose: 1 mg Sodium Chloride () 250 mls @ 15 mls/hr IV .[id number] PRN PRN Reason: SALINE FLUSH Sodium Chloride () 1,000 mls @ 15 mls/hr IV .Q48H [facility] PRN Reason: KVO Last Admin: 03/11/18 09:01 Dose: Not Given Insulin Human Lispro (Humalog Kwikpen (Bkc)) 0 unit SC ACHS [facility] PRN Reason: Protocol Last Admin: 03/11/18 16:45 Dose: Not Given Lamotrigine (Lamictal) 200 mg PO QHS [facility] Last Admin: 03/10/18 21:20 Dose: 200 mg Levothyroxine Sodium (Synthroid) 50 mcg PO MoTuWeThFr@0600 [facility] Last Admin: 03/10/18 05:26 Dose: 50 mcg Levothyroxine Sodium (Synthroid) 50 mcg PO SuSa@0600 [facility] Last Admin: 03/11/18 05:41 Dose: 50 mcg Magnesium Hydroxide (Milk Of Magnesia) 30 ml PO DAILY PRN PRN PRN Reason: Constipation Nutritional Formula (Lactose Free) (Glucerna Shake) 120 ml PO 4X/DAY [facility] Last Admin: 03/11/18 14:47 Dose: 120 ml Nystatin (Mycostatin Powder) 1 applic TOPICAL TID [facility] PRN Reason: Protocol Last Admin: 03/11/18 14:46 Dose: Not Given Ondansetron HCl (Zofran) 4 mg IV Q8H PRN PRN PRN Reason: NAUSEA Last Admin: 03/08/18 08:05 Dose: 4 mg Ondansetron HCl (Zofran Odt) 4 mg PO Q8H PRN PRN PRN Reason: NAUSEA/VOMITING Oxycodone HCl (Oxyir) 5 mg PO Q6H PRN PRN PRN Reason: SEVERE PAIN (6-1010) Last Admin: 03/10/18 14:02 Dose: 5 mg Sodium Chloride () 10 - 40 ml IV UD PRN PRN Reason: MULTILUMEN/HICMAN CATH FLUSH Last Admin: 03/09/18 09:47 Dose: 10 ml Medical Necessity - Tobacco Use Smoking Status: Never smoker Tobacco Use: Non-smoker Assessment/Plan All Active Problems (Last Reviewed 03/08/18 @ 02:42 by Nick Tamez DO) History of non-Hodgkin's lymphoma (Resolved) group home use of drug (Acute) Pain, axillary (Acute) Anemia (Acute) Metabolic acidosis (Acute) Hyperkalemia (Acute) Syncope (Acute) FAN (acute kidney injury) (Acute) 52 year old female with past medical history of type 2 DM, on metformin and insulin, hypertension, nonischemic cardiomyopathy, EF of 25% in 2014, status post AICD implantation, history of known non-Hodgkins lymphoma admitted on 03/08/18 with unresponsiveness. He was found to have acute DVT of the left upper extremity on 613 2017 and started on anticoagulation. 1. Acute DVT of the left upper extremity, likely provoked, POA, from being not active and being found unresponsive, patient started on Eliquis. 2. Acute metabolic encephalopathy secondary to #2, resolved. 3. Metabolic acidosis with lactic acidosis, likely secondary to unresponsiveness/metformin/acute kidney injury, resolved. 3. Shock, cardiogenic, history of nonischemic cardiomyopathy, EF 15%, was on Levophed for less than 1 day, blood pressures have been in the systolic 90s, will continue to monitor. 4. Elevated troponin secondary to demand ischemia related to metabolic acidosis, underlying known ischemic cardiomyopathy with EF of 15%, history of AICD, 5. Hyperkalemia, resolved. 6. Acute kidney injury, prerenal, baseline creatinine of 1.17 about a month ago, improving, repeat BMP in am. 7. Type 2 DM, Hgb A1c is 5.7, not on metformin, would not discharged on metformin, will continue Accu-Cheks for now as well as ISS 8. Code Status: Full code. 9. DVT prophylaxis with subcu heparin Code Visit Inpatient E&M: 01263 Subs Hosp L2
--- NOTE | 2018-03-11 17:20 | PN_ITS ---
Patient Problems: Active and Suspected Problems (Last Reviewed 03/08/18 @ 02:42 by Nick Tamez DO) Metabolic acidosis (Acute) Hyperkalemia (Acute) Syncope (Acute) FAN (acute kidney injury) (Acute) Subjective: He was seen and examined. No new complaints. Feels very tired. She will be discharged home with home health. Denies any dizziness or palpitations. Feels improved. Objective: Physical exam: General: Alert, Oriented x3, Cooperative, No apparent distress HEENT: Atraumatic, PERRLA, EOMI, Normocephalic Oral: Moist Mucosa Neck: Supple, No JVD, Negative Carotid Bruits Lungs: Clear to auscultation, Normal air movement Cardiovascular: Regular rate, Regular Rhythm, Normal S1, Normal S2, No murmurs Abdomen: Bowel Sounds Present, Soft, Non Tender, Non-Distended, No Hepato- splenomegaly, - - IV access for cardiac cath in the right groin, no hematoma Extremities: No edema Skin: No rashes Musculoskeletal: No Tenderness to Palpation of Joints or Extremities Lymphatic: No Cervical, Supraclavicular, or Inguinal Adenopathy Neurological: Cranial nerves II-XII grossly intact Psych/Mental Status: Normal Affect, Appropriate Vitals/I&O's: Vital Signs Temp Pulse Resp BP Pulse Ox 97.9 F 94 18 98/72 94 03/11/18 15:06 03/11/18 15:06 03/11/18 15:06 03/11/18 15:06 03/11/18 15:06 Oxygen Flow Rate (L/min) 2 Oxygen Delivery Method Room Air Weight: 105.3 kg Body Mass Index (BMI) 37.4 Intake and Output for Last 24 Hours 03/09/18 03/10/18 03/11/18 23:59 23:59 23:59 Intake Total 1848.7 / 1848.7 514.3 / 514.3 600 / 600 Output Total 300 / 300 300 / 300 300 / 300 Balance 1548.7 / 1548.7 214.3 / 214.3 300 / 300 Laboratory Results 03/10/18 21:15: POC Glucose 151 H 03/11/18 06:44: POC Glucose 122 H 03/11/18 12:06: POC Glucose 94 03/11/18 14:40: Sodium 137, Potassium 4.5, Chloride 102, Carbon Dioxide 24.0, Anion Gap 11, BUN 29 H, Creatinine 1.12 H, Estim Creat Clear Calc 51.67, Est GFR (MDRD) Af Amer 65, Est GFR (MDRD) Non-Af 54 L, BUN/Creatinine Ratio 25.9 H, Glucose 142 H, Calcium 8.6 03/11/18 16:41: POC Glucose Pending Current Medications Acetaminophen (Tylenol) 650 mg PO Q6H PRN PRN PRN Reason: Mild Pain (1-3)/Temp > 100.7 F Last Admin: 03/10/18 09:41 Dose: 650 mg Apixaban (Eliquis) 5 mg PO BID [facility] Last Admin: 03/11/18 09:03 Dose: 5 mg Carvedilol (Coreg) 3.125 mg PO BID [facility] Last Admin: 03/11/18 09:03 Dose: 3.125 mg Chlorhexidine Gluconate () 1 each TOPICAL DAILY [facility] Last Admin: 03/11/18 09:02 Dose: Not Given Clonazepam (Klonopin) 1 mg PO QHS [facility] Last Admin: 03/10/18 21:28 Dose: 1 mg Sodium Chloride () 250 mls @ 15 mls/hr IV .[id number] PRN PRN Reason: SALINE FLUSH Sodium Chloride () 1,000 mls @ 15 mls/hr IV .Q48H [facility] PRN Reason: KVO Last Admin: 03/11/18 09:01 Dose: Not Given Insulin Human Lispro (Humalog Kwikpen (Bkc)) 0 unit SC ACHS [facility] PRN Reason: Protocol Last Admin: 03/11/18 16:45 Dose: Not Given Lamotrigine (Lamictal) 200 mg PO QHS [facility] Last Admin: 03/10/18 21:20 Dose: 200 mg Levothyroxine Sodium (Synthroid) 50 mcg PO MoTuWeThFr@0600 [facility] Last Admin: 03/10/18 05:26 Dose: 50 mcg Levothyroxine Sodium (Synthroid) 50 mcg PO SuSa@0600 [facility] Last Admin: 03/11/18 05:41 Dose: 50 mcg Magnesium Hydroxide (Milk Of Magnesia) 30 ml PO DAILY PRN PRN PRN Reason: Constipation Nutritional Formula (Lactose Free) (Glucerna Shake) 120 ml PO 4X/DAY [facility] Last Admin: 03/11/18 14:47 Dose: 120 ml Nystatin (Mycostatin Powder) 1 applic TOPICAL TID [facility] PRN Reason: Protocol Last Admin: 03/11/18 14:46 Dose: Not Given Ondansetron HCl (Zofran) 4 mg IV Q8H PRN PRN PRN Reason: NAUSEA Last Admin: 03/08/18 08:05 Dose: 4 mg Ondansetron HCl (Zofran Odt) 4 mg PO Q8H PRN PRN PRN Reason: NAUSEA/VOMITING Oxycodone HCl (Oxyir) 5 mg PO Q6H PRN PRN PRN Reason: SEVERE PAIN (6-1010) Last Admin: 03/10/18 14:02 Dose: 5 mg Sodium Chloride () 10 - 40 ml IV UD PRN PRN Reason: MULTILUMEN/HICMAN CATH FLUSH Last Admin: 03/09/18 09:47 Dose: 10 ml Medical Necessity - Tobacco Use Smoking Status: Never smoker Tobacco Use: Non-smoker Assessment/Plan All Active Problems (Last Reviewed 03/08/18 @ 02:42 by Nick Tamez DO) History of non-Hodgkin's lymphoma (Resolved) senior care use of drug (Acute) Pain, axillary (Acute) Anemia (Acute) Metabolic acidosis (Acute) Hyperkalemia (Acute) Syncope (Acute) FAN (acute kidney injury) (Acute) 52 year old female with past medical history of type 2 DM, on metformin and insulin, hypertension, nonischemic cardiomyopathy, EF of 25% in 2014, status post AICD implantation, history of known non-Hodgkins lymphoma admitted on with unresponsiveness. He was found to have acute DVT of the left upper extremity on 613 2017 and started on anticoagulation. 1. Acute DVT of the left upper extremity, likely provoked, POA, from being not active and being found unresponsive, patient started on Eliquis. 2. Acute metabolic encephalopathy secondary to #2, resolved. 3. Metabolic acidosis with lactic acidosis, likely secondary to unresponsiveness /metformin/acute kidney injury, resolved. 3. Shock, cardiogenic, history of nonischemic cardiomyopathy, EF 15%, was on Levophed for less than 1 day, blood pressures have been in the systolic 90s, will continue to monitor. 4. Elevated troponin secondary to demand ischemia related to metabolic acidosis , underlying known ischemic cardiomyopathy with EF of 15%, history of AICD, 5. Hyperkalemia, resolved. 6. Acute kidney injury, prerenal, baseline creatinine of 1.17 about a month ago , improving, repeat BMP in am. 7. Type 2 DM, Hgb A1c is 5.7, not on metformin, would not discharged on metformin, will continue Accu-Cheks for now as well as ISS 8. Code Status: Full code. 9. DVT prophylaxis with subcu heparin Code Visit Inpatient E&M: 40042 Subs Hosp L2
[2018-03-11] MEDS: lamoTRIgine 100 MG Tablet 200 MG PO (21:42)
[2018-03-11] MEDS: clonazePAM 1 MG Tablet PO (21:42)
[2018-03-12] VITALS (11 sets, daily range): BP systolic 87–122; BP diastolic 62–80; PULSE 89–114; RESP 16–20; TEMP 36.4–37.1; O2SAT 97–100
[2018-03-12 00:51] LABS: Bedside Glucose 139 mg/dL (70-110)
[2018-03-12] MEDS: Nystatin Powder 15gm Bottle 1 APPLIC TOPICAL ×2 (05:03→22:08)
[2018-03-12] MEDS: Levothyroxine 50 MCG Tablet PO (05:27)
[2018-03-12 06:01] LABS: Anion Gap 9 (5-15); BUN 28 mg/dL (7-18); BUN/Creat Ratio 25.9 RATIO (10-20); Calcium,Total 8.6 mg/dL (8.5-10.1); Chloride 103 mmol/L (98-107); Creatinine, Serum 1.08 mg/dL (0.55-1.02); EST Glomerular Filtration Rate 56 mL/min (>60); Est Glom Filt Rate - Afr Amer 68 mL/min (>60); Estimated Creatinine Clearance 53.58 ml/min; Glucose 105 mg/dL (74-106); Potassium 4.4 mmol/L (3.5-5.1); Sodium Level 138 mmol/L (136-145)
[2018-03-12] MEDS: Glucerna Shake 120 ML LIQUID PO ×3 (09:52→22:07)
[2018-03-12] MEDS: APIXABAN 5 MG TABLET PO ×2 (09:53→22:07)
[2018-03-12] MEDS: Carvedilol 3.125 MG TABLET PO (11:17)
--- NOTE | 2018-03-12 11:23 | PCM.DC ---
- Discharge Diagnoses Current Active Problems: Current Active and Chronic Problems (Last Reviewed 03/08/18 @ 02:42 by Nick Tamez DO) Metabolic acidosis (Acute) Hyperkalemia (Acute) Syncope (Acute) FAN (acute kidney injury) (Acute) Reason(s) for Visit for Discharge Instructions: Unresponsiveness You will use the following diet at home:: Calorie/Carbohydrate Controlled (specify 1200, 1400, etc), Cardiac Your food should be the consistency of: Regular Your liquids should be the consistency of: Regular/Thin Discharge Activity: Return to Normal Activity Additional Instructions: Take note of changes to your medications. Some of your medications have been put on hold. You need repeat blood work to be done in 3 days and follow-up up with your primary care doctor within 1-2 weeks. You should continue to check your blood sugar frequently. Follow-up with your psychologist and psychiatrist as scheduled. Follow-up with Dr. Ch in the outpatient to discuss restarting back some of your heart medicines stopped in the hospital because of blood pressure and worsening kidney function. Continue to take your blood thinners for the blood clot in your left upper extremity. Look out for any bleeding gums, blood in your stools, urine or black stools. Allergies/Adverse Reactions: Allergies amitriptyline Adverse Reaction (Severe, Verified 11/28/17 11:08) Nightmares naproxen sodium [From Aleve] Adverse Reaction (Severe, Verified 11/28/17 11:08) Swelling Nasal swelling - causing difficulty breathing Sulfa (Sulfonamide Antibiotics) Adverse Reaction (Intermediate, Verified 11/28/17 11:08) Rash Latex, Natural Rubber Adverse Reaction (Mild, Verified 11/28/17 11:08) Other irritates/smith the skin Medications to take at Discharge Amitriptyline HCl 1 - 2 mg PO QHS PRN 03/07/18 Carvedilol [Coreg] 0.5 tab PO BID 03/07/18 Cholecalciferol (Vitamin D3) [Vitamin D3] 5,000 unit PO DAILY 03/07/18 Clonazepam [Klonopin] 1 mg PO QHS 03/07/18 Digoxin 125 mcg PO DAILY 03/07/18 Folic Acid 1 mg PO BIDCM 03/07/18 Gabapentin [Neurontin] 100 mg PO BID 03/07/18 Lamotrigine [Lamictal] 200 mg PO QHS 03/07/18 Levothyroxine [Synthroid] 50 mcg PO [id number] 03/07/18 Levothyroxine [Synthroid] 50 mcg PO SUSA 03/07/18 Omeprazole [Prilosec] 20 mg PO DAILY 03/07/18 Ondansetron HCl [Zofran] 4 mg PO Q8H PRN 03/07/18 Simvastatin [Zocor] 10 mg PO QHS 03/07/18 Venlafaxine HCl [Venlafaxine HCl ER] 150 mg PO DAILY 03/07/18 Vicodin 5-500 Mg Tablet 5 - 500 mg PO Q6H PRN 03/07/18 Apixaban [Eliquis] 5 mg PO BID #60 tab 03/12/18 Melatonin 3 mg PO QHS #30 03/12/18 Sennosides [Senokot] 8.6 mg PO DAILY PRN #0 03/12/18 The following prescriptions were given: Apixaban [Eliquis] 5 mg PO BID #60 tab Primary Care Physician: María Elena Montes De Oca DO [Primary Care Provider] - Please follow up with your Primary Care Physician in: in 1-2 weeks Please Follow Up With: Boone Ch MD When: within 2 weeks When: Psychologist as scheduled Proposed Discharge Date: 03/12/18
--- NOTE | 2018-03-12 11:30 | PCM.DC.SUM ---
Discharge Date and Diagnosis - Problem List Patient Problems: Active and Suspected Problems (Last Reviewed 03/08/18 @ 02:42 by Nick Tamez DO) Metabolic acidosis (Acute) Hyperkalemia (Acute) Syncope (Acute) FAN (acute kidney injury) (Acute) Date of Admission: 03/08/18 Date of Discharge: 03/12/18 - Primary Discharge Diagnosis Active and Suspected Problems (Last Reviewed 03/08/18 @ 02:42 by Nick Tamez DO) Metabolic acidosis (Acute) Hyperkalemia (Acute) Syncope (Acute) FAN (acute kidney injury) (Acute) - Secondary Discharge Diagnosis Chronic Problems (Last Reviewed 03/08/18 @ 02:42 by Nick Tamez DO) Type 2 diabetes mellitus without complications (Chronic) S/P implantation of automatic cardioverter/defibrillator (AICD) (Chronic) 10/06/2009 @ [facility] Cardiomyopathy in other diseases classified elsewhere (Chronic) Abnormal electrocardiogram (Chronic) Shortness of breath (Chronic) Diffuse large B-cell lymphoma (Chronic) Hospital Course and Treatment Summary of Care Provided: The patient is a 53 year old F [] Discharge Activity: Return to Normal Activity Home Medications: Medications to take at Discharge Amitriptyline HCl 1 - 2 mg PO QHS PRN 03/07/18 Carvedilol [Coreg] 0.5 tab PO BID 03/07/18 Cholecalciferol (Vitamin D3) [Vitamin D3] 5,000 unit PO DAILY 03/07/18 Clonazepam [Klonopin] 1 mg PO QHS 03/07/18 Digoxin 125 mcg PO DAILY 03/07/18 Folic Acid 1 mg PO BIDCM 03/07/18 Gabapentin [Neurontin] 100 mg PO BID 03/07/18 Lamotrigine [Lamictal] 200 mg PO QHS 03/07/18 Levothyroxine [Synthroid] 50 mcg PO [id number] 03/07/18 Levothyroxine [Synthroid] 50 mcg PO SUSA 03/07/18 Omeprazole [Prilosec] 20 mg PO DAILY 03/07/18 Ondansetron HCl [Zofran] 4 mg PO Q8H PRN 03/07/18 Simvastatin [Zocor] 10 mg PO QHS 03/07/18 Venlafaxine HCl [Venlafaxine HCl ER] 150 mg PO DAILY 03/07/18 Vicodin 5-500 Mg Tablet 5 - 500 mg PO Q6H PRN 03/07/18 Apixaban [Eliquis] 5 mg PO BID #60 tab 03/12/18 Melatonin 3 mg PO QHS #30 03/12/18 Sennosides [Senokot] 8.6 mg PO DAILY PRN #0 03/12/18 Following Prescrptions Were Given to Patient: Apixaban [Eliquis] 5 mg PO BID #60 tab Primary Care Physician: María Elena Montes De Oca DO [Primary Care Provider] - Please follow up with your Primary Care Physician in: in 1-2 weeks Please Follow Up With: Boone Ch MD When: within 2 weeks When: Psychologist as scheduled Medical Necessity - Tobacco Use Smoking Status: Never smoker Tobacco Use: Non-smoker
--- NOTE | 2018-03-12 11:42 | PCA ---
faxed D/C papers over to [facility], notified on-call nurse Elsie of D/C. Mother is in room and aware of D/C as well.
[2018-03-12 13:05] LABS: Bedside Glucose 90 mg/dL (70-110)
--- NOTE | 2018-03-12 13:21 | NURSING ---
Patient given discharge instructions and prepared for discharge. However, patient was unable to independently get up off toilet and her mother stated that she could not help her up or take care of her in that state at home. Dr. Nguyen cancelled discharge orders and CM will be asked to look into SNF at discharge.
--- NOTE | 2018-03-12 13:32 | PCA ---
called income tax consultant nurse Sims at [facility] and notified her of cancel of discharge orders.
[2018-03-12 16:56] LABS: Bedside Glucose 144 mg/dL (70-110)
[2018-03-12 17:16] LABS: Bedside Glucose 116 mg/dL (70-110)
--- NOTE | 2018-03-12 19:18 | PCM.PN.HOSP ---
Patient Problems: Active and Suspected Problems (Last Reviewed 03/08/18 @ 02:42 by Nick Tamez DO) Metabolic acidosis (Acute) Hyperkalemia (Acute) Syncope (Acute) FAN (acute kidney injury) (Acute) Subjective: Patient was seen and examined. Feels better. She initially says she was ready for discharge. Denied any chest pain no dizziness or shortness of breath. Her blood pressures on relatively low, give some albumin last night, but repeat this morning was ok. Discussed extensively the plan of care after discharge with her and her mother. Patient was said to be getting ready to be discharged when she went to the bathroom. She said she was unable to get up. Her mother said she felt she could not take care of the patient at home. Her discharge will be canceled and she will valuated for short-term rehab in a retirement facility. Objective: Physical exam: General: Alert, Oriented x3, Cooperative, No apparent distress HEENT: Atraumatic, PERRLA, EOMI, Normocephalic Oral: Moist Mucosa Neck: Supple, No JVD, Negative Carotid Bruits Lungs: Clear to auscultation, Normal air movement Cardiovascular: Regular rate, Regular Rhythm, Normal S1, Normal S2, No murmurs Abdomen: Bowel Sounds Present, Soft, Non Tender, Non-Distended, No Hepato-splenomegaly, - - IV access for cardiac cath in the right groin, no hematoma Extremities: No edema Skin: No rashes Musculoskeletal: No Tenderness to Palpation of Joints or Extremities Lymphatic: No Cervical, Supraclavicular, or Inguinal Adenopathy Neurological: Cranial nerves II-XII grossly intact Psych/Mental Status: Normal Affect, Appropriate Vitals/I&O's: Vital Signs Temp Pulse Resp BP Pulse Ox 97.6 F L 104 H 17 104/79 98 03/12/18 15:30 03/12/18 18:36 03/12/18 15:30 03/12/18 15:30 03/12/18 15:30 Oxygen Flow Rate (L/min) 2 Oxygen Delivery Method Room Air Weight: 105.3 kg Body Mass Index (BMI) 37.4 Intake and Output for Last 24 Hours 03/10/18 03/11/18 03/12/18 23:59 23:59 23:59 Intake Total 514.3 / 514.3 1620 / 1620 650.9 / 650.9 Output Total 300 / 300 725 / 725 Balance 214.3 / 214.3 895 / 895 650.9 / 650.9 Laboratory Results 03/11/18 21:31: POC Glucose 139 H 03/12/18 04:40: Sodium 138, Potassium 4.4, Chloride 103, Carbon Dioxide 26.0, Anion Gap 9, BUN 28 H, Creatinine 1.08 H, Estim Creat Clear Calc 53.58, Est GFR (MDRD) Af Amer 68, Est GFR (MDRD) Non-Af 56 L, BUN/Creatinine Ratio 25.9 H, Glucose 105, Calcium 8.6 03/12/18 06:40: POC Glucose 90 03/12/18 11:21: POC Glucose 144 H 03/12/18 16:23: POC Glucose 116 H Current Medications Acetaminophen (Tylenol) 650 mg PO Q6H PRN PRN PRN Reason: Mild Pain (1-3)/Temp > 100.7 F Last Admin: 03/10/18 09:41 Dose: 650 mg Apixaban (Eliquis) 5 mg PO BID [facility] Last Admin: 03/12/18 09:53 Dose: 5 mg Carvedilol (Coreg) 3.125 mg PO BID [facility] Last Admin: 03/12/18 11:17 Dose: 3.125 mg Chlorhexidine Gluconate () 1 each TOPICAL DAILY [facility] Last Admin: 03/12/18 09:46 Dose: Not Given Clonazepam (Klonopin) 1 mg PO QHS [facility] Last Admin: 03/11/18 21:42 Dose: 1 mg Sodium Chloride () 250 mls @ 15 mls/hr IV .[id number] PRN PRN Reason: SALINE FLUSH Sodium Chloride () 1,000 mls @ 15 mls/hr IV .Q48H [facility] PRN Reason: KVO Last Admin: 03/11/18 09:01 Dose: Not Given Insulin Human Lispro (Humalog Kwikpen (Bkc)) 0 unit SC ACHS [facility] PRN Reason: Protocol Last Admin: 03/12/18 16:25 Dose: Not Given Lamotrigine (Lamictal) 200 mg PO QHS [facility] Last Admin: 03/11/18 21:42 Dose: 200 mg Levothyroxine Sodium (Synthroid) 50 mcg PO MoTuWeThFr@0600 [facility] Last Admin: 03/10/18 05:26 Dose: 50 mcg Levothyroxine Sodium (Synthroid) 50 mcg PO SuSa@0600 [facility] Last Admin: 03/12/18 05:27 Dose: 50 mcg Magnesium Hydroxide (Milk Of Magnesia) 30 ml PO DAILY PRN PRN PRN Reason: Constipation Nutritional Formula (Lactose Free) (Glucerna Shake) 120 ml PO 4X/DAY [facility] Last Admin: 03/12/18 16:26 Dose: Not Given Nystatin (Mycostatin Powder) 1 applic TOPICAL TID [facility] PRN Reason: Protocol Last Admin: 03/12/18 15:37 Dose: Not Given Ondansetron HCl (Zofran) 4 mg IV Q8H PRN PRN PRN Reason: NAUSEA Last Admin: 03/08/18 08:05 Dose: 4 mg Ondansetron HCl (Zofran Odt) 4 mg PO Q8H PRN PRN PRN Reason: NAUSEA/VOMITING Oxycodone HCl (Oxyir) 5 mg PO Q6H PRN PRN PRN Reason: SEVERE PAIN (6-10/10) Last Admin: 03/10/18 14:02 Dose: 5 mg Sodium Chloride () 10 - 40 ml IV UD PRN PRN Reason: MULTILUMEN/HICMAN CATH FLUSH Last Admin: 03/12/18 04:41 Dose: 20 ml Medical Necessity - Tobacco Use Smoking Status: Never smoker Tobacco Use: Non-smoker Assessment/Plan All Active Problems (Last Reviewed 03/08/18 @ 02:42 by Nick Tamez DO) History of non-Hodgkin's lymphoma (Resolved) [facility] use of drug (Acute) Pain, axillary (Acute) Anemia (Acute) Metabolic acidosis (Acute) Hyperkalemia (Acute) Syncope (Acute) FAN (acute kidney injury) (Acute) 52 year old female with past medical history of type 2 DM, on metformin and insulin, hypertension, nonischemic cardiomyopathy, EF of 25% in 2015, status post AICD implantation, history of known non-Hodgkins lymphoma admitted on 03/08/18 with unresponsiveness. She was found to have acute DVT of the left upper extremity and started on anticoagulation. She was about to be discharged when she was felt to be more weak and could not be discharged home. 1. Debility related to multiple concurrent co-morbidities, patient will need to assess by physical and Occupational therapy and possibly discharge to a short-term rehab in a retirement facility. 2. Acute DVT of the left upper extremity, likely provoked, present on admission, from being not active and being found unresponsive, patient started on Eliquis. 3. Acute metabolic encephalopathy secondary to metabolic acidosis, resolved, patient is alert oriented ?3, back to her baseline. 4. Metabolic acidosis with lactic acidosis, likely secondary to unresponsiveness/metformin/acute kidney injury, resolved, received bicarbonate drip on admission in the ICU, BMP is normal 5. Shock, cardiogenic, history of nonischemic cardiomyopathy, EF 15%, was on Levophed for less than 1 day, blood pressures have been in the systolic 90s, will continue to monitor. Home meds have been on hold, may need to resumed in the outpatient if improved. 6. Elevated troponin secondary to demand ischemia related to metabolic acidosis, underlying non-ischemic cardiomyopathy with EF of 15%, history of AICD, no workup according to cardiology 7. Hyperkalemia, present on admission, resolved. 8. Acute kidney injury, prerenal, baseline creatinine of 1.17 about a month ago, improving,almost resolved, will continue to monitor. Patient's lasix, lisinopril and spironolatone have been on hold. May need to be resumed later. 9. Type 2 DM, Hgb A1c is 5.7, not on metformin, would not discharged on metformin, will continue Accu-Cheks for now as well as ISS 10. Code Status: Full code. 11. DVT prophylaxis with subcu heparin Code Visit Inpatient E&M: 96132 Subs Hosp L3
--- NOTE | 2018-03-12 19:27 | PN_ITS ---
Patient Problems: Active and Suspected Problems (Last Reviewed 03/08/18 @ 02:42 by Nick Tamez DO) Metabolic acidosis (Acute) Hyperkalemia (Acute) Syncope (Acute) FAN (acute kidney injury) (Acute) Subjective: Patient was seen and examined. Feels better. She initially says she was ready for discharge. Denied any chest pain no dizziness or shortness of breath. Her blood pressures on relatively low, give some albumin last night, but repeat this morning was ok. Discussed extensively the plan of care after discharge with her and her mother. Patient was said to be getting ready to be discharged when she went to the bathroom. She said she was unable to get up. Her mother said she felt she could not take care of the patient at home. Her discharge will be canceled and she will valuated for short-term rehab in a assisted facility. Objective: Physical exam: General: Alert, Oriented x3, Cooperative, No apparent distress HEENT: Atraumatic, PERRLA, EOMI, Normocephalic Oral: Moist Mucosa Neck: Supple, No JVD, Negative Carotid Bruits Lungs: Clear to auscultation, Normal air movement Cardiovascular: Regular rate, Regular Rhythm, Normal S1, Normal S2, No murmurs Abdomen: Bowel Sounds Present, Soft, Non Tender, Non-Distended, No Hepato- splenomegaly, - - IV access for cardiac cath in the right groin, no hematoma Extremities: No edema Skin: No rashes Musculoskeletal: No Tenderness to Palpation of Joints or Extremities Lymphatic: No Cervical, Supraclavicular, or Inguinal Adenopathy Neurological: Cranial nerves II-XII grossly intact Psych/Mental Status: Normal Affect, Appropriate Vitals/I&O's: Vital Signs Temp Pulse Resp BP Pulse Ox 97.6 F L 104 H 17 104/79 98 03/12/18 15:30 03/12/18 18:36 03/12/18 15:30 03/12/18 15:30 03/12/18 15:30 Oxygen Flow Rate (L/min) 2 Oxygen Delivery Method Room Air Weight: 105.3 kg Body Mass Index (BMI) 37.4 Intake and Output for Last 24 Hours 03/10/18 03/11/18 03/12/18 23:59 23:59 23:59 Intake Total 514.3 / 514.3 1620 / 1620 650.9 / 650.9 Output Total 300 / 300 725 / 725 Balance 214.3 / 214.3 895 / 895 650.9 / 650.9 Laboratory Results 03/11/18 21:31: POC Glucose 139 H 03/12/18 04:40: Sodium 138, Potassium 4.4, Chloride 103, Carbon Dioxide 26.0, Anion Gap 9, BUN 28 H, Creatinine 1.08 H, Estim Creat Clear Calc 53.58, Est GFR (MDRD) Af Amer 68, Est GFR (MDRD) Non-Af 56 L, BUN/Creatinine Ratio 25.9 H, Glucose 105, Calcium 8.6 03/12/18 06:40: POC Glucose 90 03/12/18 11:21: POC Glucose 144 H 03/12/18 16:23: POC Glucose 116 H Current Medications Acetaminophen (Tylenol) 650 mg PO Q6H PRN PRN PRN Reason: Mild Pain (1-3)/Temp > 100.7 F Last Admin: 03/10/18 09:41 Dose: 650 mg Apixaban (Eliquis) 5 mg PO BID [facility] Last Admin: 03/12/18 09:53 Dose: 5 mg Carvedilol (Coreg) 3.125 mg PO BID [facility] Last Admin: 03/12/18 11:17 Dose: 3.125 mg Chlorhexidine Gluconate () 1 each TOPICAL DAILY [facility] Last Admin: 03/12/18 09:46 Dose: Not Given Clonazepam (Klonopin) 1 mg PO QHS [facility] Last Admin: 03/11/18 21:42 Dose: 1 mg Sodium Chloride () 250 mls @ 15 mls/hr IV .[id number] PRN PRN Reason: SALINE FLUSH Sodium Chloride () 1,000 mls @ 15 mls/hr IV .Q48H [facility] PRN Reason: KVO Last Admin: 03/11/18 09:01 Dose: Not Given Insulin Human Lispro (Humalog Kwikpen (Bkc)) 0 unit SC ACHS [facility] PRN Reason: Protocol Last Admin: 03/12/18 16:25 Dose: Not Given Lamotrigine (Lamictal) 200 mg PO QHS [facility] Last Admin: 03/11/18 21:42 Dose: 200 mg Levothyroxine Sodium (Synthroid) 50 mcg PO MoTuWeThFr@0600 [facility] Last Admin: 03/10/18 05:26 Dose: 50 mcg Levothyroxine Sodium (Synthroid) 50 mcg PO SuSa@0600 [facility] Last Admin: 03/12/18 05:27 Dose: 50 mcg Magnesium Hydroxide (Milk Of Magnesia) 30 ml PO DAILY PRN PRN PRN Reason: Constipation Nutritional Formula (Lactose Free) (Glucerna Shake) 120 ml PO 4X/DAY [facility] Last Admin: 03/12/18 16:26 Dose: Not Given Nystatin (Mycostatin Powder) 1 applic TOPICAL TID [facility] PRN Reason: Protocol Last Admin: 03/12/18 15:37 Dose: Not Given Ondansetron HCl (Zofran) 4 mg IV Q8H PRN PRN PRN Reason: NAUSEA Last Admin: 03/08/18 08:05 Dose: 4 mg Ondansetron HCl (Zofran Odt) 4 mg PO Q8H PRN PRN PRN Reason: NAUSEA/VOMITING Oxycodone HCl (Oxyir) 5 mg PO Q6H PRN PRN PRN Reason: SEVERE PAIN (6-10/10) Last Admin: 03/10/18 14:02 Dose: 5 mg Sodium Chloride () 10 - 40 ml IV UD PRN PRN Reason: MULTILUMEN/HICMAN CATH FLUSH Last Admin: 03/12/18 04:41 Dose: 20 ml Medical Necessity - Tobacco Use Smoking Status: Never smoker Tobacco Use: Non-smoker Assessment/Plan All Active Problems (Last Reviewed 03/08/18 @ 02:42 by Nick Tamez DO) History of non-Hodgkin'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 She was found to have acute DVT of the left upper extremity and started on anticoagulation. She was about to be discharged when she was felt to be more weak and could not be discharged home. 1. Debility related to multiple concurrent co-morbidities, patient will need to assess by physical and Occupational therapy and possibly discharge to a short- term rehab in a assisted facility. 2. Acute DVT of the left upper extremity, likely provoked, present on admission , from being not active and being found unresponsive, patient started on Eliquis. 3. Acute metabolic encephalopathy secondary to metabolic acidosis, resolved, patient is alert oriented ?3, back to her baseline. 4. Metabolic acidosis with lactic acidosis, likely secondary to unresponsiveness /metformin/acute kidney injury, resolved, received bicarbonate drip on admission in the ICU, BMP is normal 5. Shock, cardiogenic, history of nonischemic cardiomyopathy, EF 15%, was on Levophed for less than 1 day, blood pressures have been in the systolic 90s, will continue to monitor. Home meds have been on hold, may need to resumed in the outpatient if improved. 6. Elevated troponin secondary to demand ischemia related to metabolic acidosis , underlying non-ischemic cardiomyopathy with EF of 15%, history of AICD, no workup according to cardiology 7. Hyperkalemia, present on admission, resolved. 8. Acute kidney injury, prerenal, baseline creatinine of 1.17 about a month ago , improving,almost resolved, will continue to monitor. Patient's lasix, lisinopril and spironolatone have been on hold. May need to be resumed later. 9. Type 2 DM, Hgb A1c is 5.7, not on metformin, would not discharged on metformin, will continue Accu-Cheks for now as well as ISS 10. Code Status: Full code. 11. DVT prophylaxis with subcu heparin Code Visit Inpatient E&M: 99004 Subs Hosp L3
[2018-03-12] MEDS: lamoTRIgine 100 MG Tablet 200 MG PO (22:08)
[2018-03-12] MEDS: Ondansetron ODT 4 MG Tablet PO (22:11)
[2018-03-12] MEDS: clonazePAM 1 MG Tablet PO (22:12)
[2018-03-13] VITALS (10 sets, daily range): BP systolic 91–111; BP diastolic 65–69; PULSE 87–110; RESP 16–18; TEMP 36.3–36.9; O2SAT 96–100
--- NOTE | 2018-03-13 00:27 | NURSING ---
Report given to Abraham Brown RN. She will resume care of pt at this time.
[2018-03-13 01:41] LABS: Bedside Glucose 149 mg/dL (70-110)
[2018-03-13] MEDS: Nystatin Powder 15gm Bottle 1 APPLIC TOPICAL ×3 (05:30→21:31)
[2018-03-13] MEDS: Levothyroxine 50 MCG Tablet PO (05:33)
[2018-03-13] MEDS: oxyCODONE 5 MG Tablet PO (05:33)
[2018-03-13 07:00] LABS: Bedside Glucose 112 mg/dL (70-110)
--- NOTE | 2018-03-13 09:24 | CASEMGMT ---
SW received referral for SNF as patient was unable to get up from toilet yesterday. LUPILLO spoke with patient and she agreed with this. She gave SW permission to talk with her mom about which SNF. LUPILLO called patient's mom and she would be okay with [facility] or [facility]. LUPILLO told her SW will work on this and let her know what SW finds out. LUPILLO faxed a referral to [facility]. LUPILLO called [facility] and left a message for Ingrid asking for a return call regarding whether or not they are in network with [facility]. Plan: SNF pending insurance approval and accepting facility Micaela IBRAHIM
[2018-03-13] MEDS: APIXABAN 5 MG TABLET PO ×2 (10:03→21:32)
[2018-03-13] MEDS: Glucerna Shake 120 ML LIQUID PO ×4 (10:03→21:32)
[2018-03-13] MEDS: Carvedilol 3.125 MG TABLET PO ×2 (10:07→21:32)
--- NOTE | 2018-03-13 11:04 | PCM.PROGNOTE ---
Patient Problems: Active and Suspected Problems (Last Reviewed 03/08/18 @ 02:42 by Nick Tamez DO) Metabolic acidosis (Acute) Lactic acid 12.4 at admission Hyperkalemia (Acute) Syncope (Acute) FAN (acute kidney injury) (Acute) DVT of axillary vein, acute left (Acute) Deep vein thrombosis (DVT) of brachial vein of left upper extremity (Acute) Acute metabolic encephalopathy (Acute) Cardiogenic shock (Acute) Demand ischemia (Acute) Subjective: No complaints today. Denies shortness of breath, lightheadedness, chest pain, nausea, abdominal pain, diarrhea. - Physical Exam General: Alert, Oriented x3, Cooperative, No apparent distress HEENT: Atraumatic, PERRLA, EOMI, Normocephalic Oral: Dry Mucosa Neck: Supple Lungs: Clear to auscultation, No wheeze, No rales Cardiovascular: Regular rate, Regular Rhythm, Normal S1, Normal S2, No murmurs, No Gallop Abdomen: Bowel Sounds Present, Soft, Non Tender, Non-Distended, Obese Extremities: No clubbing, No cyanosis, Edema - of the LUE secondary to DVT also with non-pitting edema of the Skin: No rashes Neurological: Cranial nerves II-XII grossly intact, Neuro grossly intact Psych/Mental Status: Normal Affect, Appropriate Vital Signs Temp Pulse Resp BP Pulse Ox 97.4 F L 95 16 93/68 99 03/13/18 09:30 03/13/18 10:51 03/13/18 09:30 03/13/18 09:30 03/13/18 09:30 Oxygen Flow Rate (L/min) 2 Oxygen Delivery Method Room Air Weight: 233 lb 11.04 oz Body Mass Index (BMI) 37.4 Intake and Output for Last 24 Hours 03/11/18 03/12/18 03/13/18 23:59 23:59 23:59 Intake Total 1620 / 1620 910.9 / 910.9 Output Total 725 / 725 350 / 350 Balance 895 / 895 910.9 / 910.9 -350 / -350 POC Glucose 03/13/18 03/12/18 03/12/18 06:54 22:06 16:23 POC Glucose 112 H 149 H 116 H 03/12/18 03/12/18 11:21 06:40 POC Glucose 144 H 90 Medical Necessity - Tobacco Use Smoking Status: Never smoker Tobacco Use: Non-smoker Assessment/Plan All Active Problems (Last Reviewed 03/08/18 @ 02:42 by Nick Tamez DO) 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 Cardiogenic shock with severe metabolic acidosis/lactic acidosis-resolved 2. Acute respiratory insufficiency secondary to severe metabolic acidosis 3. Severe nonischemic cardiomyopathy with 15% ejection fraction 4. Diabetes mellitus type 2 5. Demand ischemia Awaiting precertification for [facility] to [facility] for strengthening prior to returning home Continue the same medications. Code Visit Inpatient E&M: 46037 Subs Hosp L1
--- NOTE | 2018-03-13 11:08 | PN_ITS ---
Patient Problems: Active and Suspected Problems (Last Reviewed 03/08/18 @ 02:42 by Nick Tamez DO) Metabolic acidosis (Acute) Lactic acid 12.4 at admission Hyperkalemia (Acute) Syncope (Acute) FAN (acute kidney injury) (Acute) DVT of axillary vein, acute left (Acute) Deep vein thrombosis (DVT) of brachial vein of left upper extremity (Acute) Acute metabolic encephalopathy (Acute) Cardiogenic shock (Acute) Demand ischemia (Acute) Subjective: No complaints today. Denies shortness of breath, lightheadedness, chest pain, nausea, abdominal pain, diarrhea. - Physical Exam General: Alert, Oriented x3, Cooperative, No apparent distress HEENT: Atraumatic, PERRLA, EOMI, Normocephalic Oral: Dry Mucosa Neck: Supple Lungs: Clear to auscultation, No wheeze, No rales Cardiovascular: Regular rate, Regular Rhythm, Normal S1, Normal S2, No murmurs, No Gallop Abdomen: Bowel Sounds Present, Soft, Non Tender, Non-Distended, Obese Extremities: No clubbing, No cyanosis, Edema - of the LUE secondary to DVT also with non-pitting edema of the Skin: No rashes Neurological: Cranial nerves II-XII grossly intact, Neuro grossly intact Psych/Mental Status: Normal Affect, Appropriate Vital Signs Temp Pulse Resp BP Pulse Ox 97.4 F L 95 16 93/68 99 03/13/18 09:30 03/13/18 10:51 03/13/18 09:30 03/13/18 09:30 03/13/18 09:30 Oxygen Flow Rate (L/min) 2 Oxygen Delivery Method Room Air Weight: 233 lb 11.04 oz Body Mass Index (BMI) 37.4 Intake and Output for Last 24 Hours 03/11/18 03/12/18 03/13/18 23:59 23:59 23:59 Intake Total 1620 / 1620 910.9 / 910.9 Output Total 725 / 725 350 / 350 Balance 895 / 895 910.9 / 910.9 -350 / -350 POC Glucose 03/13/18 03/12/18 03/12/18 06:54 22:06 16:23 POC Glucose 112 H 149 H 116 H 03/12/18 03/12/18 11:21 06:40 POC Glucose 144 H 90 Medical Necessity - Tobacco Use Smoking Status: Never smoker Tobacco Use: Non-smoker Assessment/Plan All Active Problems (Last Reviewed 03/08/18 @ 02:42 by Nick Tamez DO) History of non-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 Cardiogenic shock with severe metabolic acidosis/lactic acidosis-resolved 2. Acute respiratory insufficiency secondary to severe metabolic acidosis 3. Severe nonischemic cardiomyopathy with 15% ejection fraction 4. Diabetes mellitus type 2 5. Demand ischemia Awaiting precertification for transfer to [facility] prior to returning home Continue the same medications. Code Visit Inpatient E&M: 80369 Subs Hosp L1
--- NOTE | 2018-03-13 11:41 | CASEMGMT ---
Received a call from Shasta at [facility]. She said they can take patient at d/c. She will start the pre-cert. LUPILLO notified patient of the plan. LUPILLO also called patient's mom and let her know. LUPILLO explained we will need to wait on insurance to give the okay, so maybe tomorrow. Plan: [facility] pending insurance approval. Micaela IBRAHIM
[2018-03-13] MEDS: Insulin Lispro 100 UNIT/ML INSULN.PEN SC ×2 (12:38→21:33)
[2018-03-13 12:45] LABS: Bedside Glucose 176 mg/dL (70-110)
[2018-03-13 16:55] LABS: Bedside Glucose 136 mg/dL (70-110)
[2018-03-13] MEDS: lamoTRIgine 100 MG Tablet 200 MG PO (21:32)
[2018-03-13] MEDS: clonazePAM 1 MG Tablet PO (21:32)
[2018-03-13 22:25] LABS: Bedside Glucose 196 mg/dL (70-110)
[2018-03-14] VITALS (7 sets, daily range): BP systolic 92–95; BP diastolic 54–65; PULSE 78–101; RESP 16–18; TEMP 36.4–36.6; O2SAT 98–99
[2018-03-14] MEDS: Nystatin Powder 15gm Bottle 1 APPLIC TOPICAL ×2 (05:23→13:48)
[2018-03-14] MEDS: Levothyroxine 50 MCG Tablet PO (05:23)
[2018-03-14 07:01] LABS: Bedside Glucose 109 mg/dL (70-110)
[2018-03-14] MEDS: APIXABAN 5 MG TABLET PO (09:29)
[2018-03-14] MEDS: Carvedilol 3.125 MG TABLET PO (09:29)
[2018-03-14 11:40] LABS: Bedside Glucose 124 mg/dL (70-110)
[2018-03-14] MEDS: Glucerna Shake 120 ML LIQUID PO ×2 (13:47→16:28)
--- NOTE | 2018-03-14 14:48 | CASEMGMT ---
Addendum entered by Mciaela Grullon 03/14/18 15:29: LUPILLO notified Shasta at [facility] that patient will be coming today. LUPILLO completed convalescent on HENS. LUPILLO put a green sheet on the chart with instructions. Plan: d/c to [facility] under skilled level of care on a convalescent stay. Staff to set up transportation. Micaela IBRAHIM Original Note: LUPILLO received call from [facility] and she received insurance approval for patient. LUPILLO notified physician. She plans on sending patient today. LUPILLO called patient's mom and let her know the plan. LUPILLO told her we can set up transportation, but it is not covered by insurance. LUPILLO told her it is around $50 base fee and then $2.50 per mile and they would bill her. She said that is fine. LUPILLO told her we will let her know when a time was set up. LUPILLO notified patient of plan as well. Plan: d/c to [facility] under skilled level of care Micaela IBRAHIM
[2018-03-14 16:41] LABS: Bedside Glucose 149 mg/dL (70-110)
--- NOTE | 2018-03-14 16:43 | PCM.TXEXTCAR ---
- Diet 03/08/18 02:34 Diet: Cardiac/Low Cholesterol, carb controlled, low sodium Food consistency:: Soft Liquid Consistency:: Regular/Thin Dietary Modifications:: Soft Diet Diet Comments: supervision during meals; pills ok whole with water - Routine Orders/Code Status Enema Type: Fleetz Enema Frequency: Daily PRN Suppository Type: Dulcolax 10mg Suppository Frequency: Daily PRN - Wound(s) Right Fine Wound Type: scab - Therapies Weight Bearing: Full weight bearing Physical Therapy: Eval and Treat Occupational Therapy: Eval and Treat - Problem/Diagnosis (1) DVT of axillary vein, acute left Status: Acute Current Visit: Yes (2) Deep vein thrombosis (DVT) of brachial vein of left upper extremity Status: Acute Current Visit: Yes (3) Acute metabolic encephalopathy Status: Acute Current Visit: Yes (4) Cardiogenic shock Status: Acute Current Visit: Yes (5) Demand ischemia Status: Acute Current Visit: Yes (6) FAN (acute kidney injury) Status: Acute Current Visit: Yes (7) Hyperkalemia Status: Acute Current Visit: Yes (8) Metabolic acidosis Status: Acute Comment: Lactic acid 12.4 at admission Current Visit: Yes (9) Syncope Status: Acute Current Visit: Yes (10) Anemia Status: Chronic Current Visit: No (11) alf use of drug Status: Acute Current Visit: No (12) Abnormal electrocardiogram Status: Chronic Current Visit: No (13) Cardiomyopathy in other diseases classified elsewhere Status: Chronic Comment: EF is 15% Current Visit: No (14) Diffuse large B-cell lymphoma Status: Chronic Current Visit: No (15) S/P implantation of automatic cardioverter/defibrillator (AICD) Status: Chronic Comment: 10/06/2009 @ [facility] Current Visit: No (16) Shortness of breath Status: Chronic Current Visit: No (17) Type 2 diabetes mellitus without complications Status: Chronic Current Visit: No (18) History of non-Hodgkin's lymphoma Status: Resolved Current Visit: No (19) Pulmonary hypertension Status: Chronic Comment: PA systolic estimated at 53 on echocardiogram done in February 2018 Current Visit: Yes (20) Mitral regurgitation Status: Chronic Comment: 3+ Current Visit: Yes (21) Tricuspid regurgitation Status: Chronic Comment: 3+ Current Visit: Yes - Allergies/Procedures Done in Hospital Allergies/Adverse Reactions: Allergies amitriptyline Adverse Reaction (Severe, Verified 11/28/17 11:08) Nightmares naproxen sodium [From Aleve] Adverse Reaction (Severe, Verified 11/28/17 11:08) Swelling Nasal swelling - causing difficulty breathing Sulfa (Sulfonamide Antibiotics) Adverse Reaction (Intermediate, Verified 11/28/17 11:08) Rash Latex, Natural Rubber Adverse Reaction (Mild, Verified 11/28/17 11:08) Other irritates/smith the skin Procedures: 2-D Echocardiogram - Moderately dilated left ventricle with a 15% ejection fraction and no segmental wall motion abnormalities. Severe, stage III, diastolic dysfunction. 3+ mitral valve insufficiency. Pulmonary hypertension with a PA systolic pressure estimated at 53. 2+ tricuspid valve insufficiency. - Type of Care/Length of Stay Estimated LOS: Convalescent Care Less Than 30 days Type of Care Needed: Skilled Rehab Potential: Fair Prognosis: Fair - Additional Orders/Day of Discharge H&P will serve as current which was dated: 03/08/18 Day of Discharge: 03/14/18 - Dietary and Speech Recommendations Dietitian Recommendations/Changes: Recommend change diet to Carbohydrate Controlled, Low Sodium. Continue Glucerna as ordered on medpass. Will provide Glucerna w/ meals for additional calories and protein as intake compromised at meals. - Follow Up Care Primary Care Physician: María Elena Montes De Oca DO [Primary Care Provider] - Please follow up with your Primary Care Physician in: in 1-2 weeks Please Follow Up With: Boone Ch MD When: within 2 weeks When: Psychologist as scheduled
--- NOTE | 2018-03-14 16:54 | TREXTCAR_ITS ---
- Diet 03/08/18 02:34 Diet: Cardiac/Low Cholesterol, carb controlled, low sodium Food consistency:: Soft Liquid Consistency:: Regular/Thin Dietary Modifications:: Soft Diet Diet Comments: supervision during meals; pills ok whole with water - Routine Orders/Code Status Enema Type: Fleetz Enema Frequency: Daily PRN Suppository Type: Dulcolax 10mg Suppository Frequency: Daily PRN - Wound(s) Right Fine Wound Type: scab - Therapies Weight Bearing: Full weight bearing Physical Therapy: Eval and Treat Occupational Therapy: Eval and Treat - Problem/Diagnosis (1) DVT of axillary vein, acute left Status: Acute Current Visit: Yes (2) Deep vein thrombosis (DVT) of brachial vein of left upper extremity Status: Acute Current Visit: Yes (3) Acute metabolic encephalopathy Status: Acute Current Visit: Yes (4) Cardiogenic shock Status: Acute Current Visit: Yes (5) Demand ischemia Status: Acute Current Visit: Yes (6) FAN (acute kidney injury) Status: Acute Current Visit: Yes (7) Hyperkalemia Status: Acute Current Visit: Yes (8) Metabolic acidosis Status: Acute Comment: Lactic acid 12.4 at admission Current Visit: Yes (9) Syncope Status: Acute Current Visit: Yes (10) Anemia Status: Chronic Current Visit: No (11) group home use of drug Status: Acute Current Visit: No (12) Abnormal electrocardiogram Status: Chronic Current Visit: No (13) Cardiomyopathy in other diseases classified elsewhere Status: Chronic Comment: EF is 15% Current Visit: No (14) Diffuse large B-cell lymphoma Status: Chronic Current Visit: No (15) S/P implantation of automatic cardioverter/defibrillator (AICD) Status: Chronic Comment: 10/06/2009 @ [facility] Current Visit: No (16) Shortness of breath Status: Chronic Current Visit: No (17) Type 2 diabetes mellitus without complications Status: Chronic Current Visit: No (18) History of non-Hodgkin's lymphoma Status: Resolved Current Visit: No (19) Pulmonary hypertension Status: Chronic Comment: PA systolic estimated at 53 on echocardiogram done in February 2018 Current Visit: Yes (20) Mitral regurgitation Status: Chronic Comment: 3+ Current Visit: Yes (21) Tricuspid regurgitation Status: Chronic Comment: 3+ Current Visit: Yes - Allergies/Procedures Done in Hospital Allergies/Adverse Reactions: Allergies amitriptyline Adverse Reaction (Severe, Verified 11/28/17 11:08) Nightmares naproxen sodium [From Aleve] Adverse Reaction (Severe, Verified 11/28/17 11:08) Swelling Nasal swelling - causing difficulty breathing Sulfa (Sulfonamide Antibiotics) Adverse Reaction (Intermediate, Verified 11:08) Rash Latex, Natural Rubber Adverse Reaction (Mild, Verified 11/28/17 11:08) Other irritates/smith the skin Procedures: 2-D Echocardiogram - Moderately dilated left ventricle with a 15% ejection fraction and no segmental wall motion abnormalities. Severe, stage III , diastolic dysfunction. 3+ mitral valve insufficiency. Pulmonary hypertension with a PA systolic pressure estimated at 53. 2+ tricuspid valve insufficiency. - Type of Care/Length of Stay Estimated LOS: Convalescent Care Less Than 30 days Type of Care Needed: Skilled Rehab Potential: Fair Prognosis: Fair - Additional Orders/Day of Discharge H&P will serve as current which was dated: 03/08/18 Day of Discharge: 03/14/18 - Dietary and Speech Recommendations Dietitian Recommendations/Changes: Recommend change diet to Carbohydrate Controlled, Low Sodium. Continue Glucerna as ordered on medpass. Will provide Glucerna w/ meals for additional calories and protein as intake compromised at meals. - Follow Up Care Primary Care Physician: María Elena Montes De Oca DO [Primary Care Provider] - Please follow up with your Primary Care Physician in: in 1-2 weeks Please Follow Up With: Boone Ch MD When: within 2 weeks When: Psychologist as scheduled
--- NOTE | 2018-03-14 17:02 | PCM.DC.SUM ---
Discharge Date and Diagnosis - Problem List Patient Problems: Active and Suspected Problems (Last Reviewed 03/08/18 @ 02:42 by Nick Tamez DO) Metabolic acidosis (Acute) Lactic acid 12.4 at admission Hyperkalemia (Acute) Syncope (Acute) FAN (acute kidney injury) (Acute) DVT of axillary vein, acute left (Acute) Deep vein thrombosis (DVT) of brachial vein of left upper extremity (Acute) Acute metabolic encephalopathy (Acute) Cardiogenic shock (Acute) Demand ischemia (Acute) Date of Admission: 03/08/18 Date of Discharge: 03/14/18 - Primary Discharge Diagnosis Active and Suspected Problems (Last Reviewed 03/08/18 @ 02:42 by Nick Tamez DO) Metabolic acidosis (Acute) - Lactic acid 12.4 at admission Hyperkalemia (Acute) Syncope (Acute) FAN (acute kidney injury) (Acute) DVT of axillary vein, acute left (Acute) Deep vein thrombosis (DVT) of brachial vein of left upper extremity (Acute) Acute metabolic encephalopathy (Acute) Cardiogenic shock (Acute) Demand ischemia (Acute) Acute respiratory insufficiency - Secondary Discharge Diagnosis Chronic Problems (Last Reviewed 03/08/18 @ 02:42 by Nick Tamez DO) Anemia (Chronic) Pulmonary hypertension (Chronic) PA systolic estimated at 53 on echocardiogram done in February 2018 Mitral regurgitation (Chronic) - 3+ Tricuspid regurgitation (Chronic) - 3+ Type 2 diabetes mellitus without complications (Chronic) S/P implantation of automatic cardioverter/defibrillator (AICD) (Chronic) 10/06/2009 @ [facility] Nonischemic cardiomyopathy in other diseases classified elsewhere (Chronic) EF is 15% with global left ventricular dysfunction and no wall motion abnormalities Abnormal electrocardiogram (Chronic) Shortness of breath (Chronic) Diffuse large B-cell lymphoma (Chronic) Chronic renal failure stage III Hospital Course and Treatment Imaging Results: Clinical Impression(s) from Imaging Studies Chest X-Ray 03/07/18 22:32 IMPRESSION: Moderate cardiomegaly with no evidence of pulmonary vascular congestion. Electronically Signed: Lamberto Arreola DO at 23:00 EDT , Service support , Chest X-Ray 03/07/18 23:47 IMPRESSION: Right internal jugular central line with the tip at the junction of superior vena cava and right atrium, in its expected location. No pneumothorax. Stable cardiomegaly. Electronically Signed: Jin Rolon MD at 0:12 EDT , Service support , Brain CT 03/08/18 00:27 IMPRESSION: Normal unenhanced CT scan of the brain. Electronically Signed: Jin Rolon MD at 1:58 EDT , Service support , KUB X-Ray 03/08/18 02:59 IMPRESSION: Nonspecific bowel gas pattern without evidence of obstruction. Electronically Signed: Jin Rolon MD at 4:14 EDT , Service support , Laboratory Results - last 24 hr 03/13/18 03/14/18 03/14/18 21:30 06:53 11:05 POC Glucose 196 H 109 124 H 03/14/18 16:26 POC Glucose [address] Boone Ch-cardiology Dr. Patrick Willson-linen sorter Operations: None Procedures: 2-D Echocardiogram Summary of Care Provided: The patient is a 53 year old F with a past medical history of severe nonischemic cardiomyopathy with a 25% ejection fraction, AICD, diabetes mellitus type 2, morbid obesity, history of diffuse large B-cell lymphoma, pulmonary hypertension, mitral regurgitation and tricuspid regurgitation who presented to the emergency department at [facility] on 03/08/2018 after being found unresponsive in her bathroom. Vital signs at presentation to the emergency room were temp 37.3, pulse rate 88, respiratory rate 24, pressure 95/66 and pulse ox was 98% on a 2 L nasal cannula. Lab showed a low sodium of 129 with a potassium of 7.6. The BUN was 30 and the creatinine was 1.90. Creatinine in October 2017 was 0.85. Random blood sugar was 310 and a hemoglobin A1c was 5.7. Lactic acid was initially 12.4 and the patient had been taking metformin. Total bilirubin was elevated at 2.4 and the AST and ALT were increased at 149 and 120 respectively. Initial troponin was 0.081. The second troponin was 0.781. Brain CT was unremarkable. She was admitted to the intensive care unit and started on a bicarbonate drip. Diuretics were held. Metformin and lisinopril were held. Consult patient was ordered for Dr. Willson. Dr. Ch was also consulted. The acidosis progressively improved. She did require Levophed to maintain her pressure of with a mean systolic of 65. An echocardiogram showed an ejection fraction of 15% which was down from her last echocardiogram that showed 25% ejection fraction. There were no segmental wall motion abnormalities noted. The PA pressure was elevated at 53 and she had 2+ tricuspid valve regurgitation and 3+ mitral valve regurgitation. Dr. Ch recommended weaning Levophed as tolerated. He felt the increase in troponin was likely secondary to demand ischemia since the patient has normal coronary arteries on cardiac catheterization. On PE she was noted to have swelling of the left upper extremity and a venous Doppler was ordered and showed acute DVT in the left axillary and left brachial veins. She was started on Eliquis 2.5 mg twice daily at the recommendation of Dr. Ch. An arterial study was also ordered on the left upper extremity and the patient had normal circulation in the left arm. Interrogation of the AICD showed no VT/VF episodes since the last check in October 2017. She was weaned off pressors and transferred to the progressive care unit. Discharge was planned for 03/12/2018 however the patient felt she was too weak to go home and so she was held in the hospital until precertification could be obtained for transfer to detention. She was transferred to [facility] on 03/14/2018 for PT/OT/strengthening prior to returning home. She should follow up with Dr. Ch she should follow-up with Dr. María Elena Montes De Oca in 1-2 weeks. Within 2 weeks. She will follow-up with her psychologist as previously scheduled. Physical exam: General: Alert, Oriented x3, Cooperative, No apparent distress. good mood and good color in her face HEENT: Atraumatic, PERRLA, EOMI, Normocephalic Oral: Moist Mucosa Neck: Supple, No JVD, Negative Carotid Bruits Lungs: Clear to auscultation, Normal air movement, no conversational dyspnea and she had symmetric chest rise. Cardiovascular: Regular rate, Regular Rhythm, Normal S1, Normal S2, No murmurs, no gallop, no rub Abdomen: Bowel Sounds Present, Soft, Non Tender, Non-Distended, No Hepato-splenomegaly Extremities: No pitting edema Skin: No rashes Musculoskeletal: No Tenderness to Palpation of Joints or Extremities Lymphatic: No Cervical, Supraclavicular, or Inguinal Adenopathy Neurological: Cranial nerves II-XII grossly intact Psych/Mental Status: Normal Affect, Appropriate Discharge Activity: Return to Normal Activity Home Medications: Medications to take at Discharge Amitriptyline HCl 1 - 2 mg PO QHS PRN 03/07/18 Cholecalciferol (Vitamin D3) [Vitamin D3] 5,000 unit PO DAILY 03/07/18 Digoxin 125 mcg PO DAILY 03/07/18 Folic Acid 1 mg PO BIDCM 03/07/18 Gabapentin [Neurontin] 100 mg PO BID 03/07/18 Lamotrigine [Lamictal] 200 mg PO QHS 03/07/18 Omeprazole [Prilosec] 20 mg PO DAILY 03/07/18 Ondansetron HCl [Zofran] 4 mg PO Q8H PRN 03/07/18 Simvastatin [Zocor] 10 mg PO QHS 03/07/18 Venlafaxine HCl [Venlafaxine HCl ER] 150 mg PO DAILY 03/07/18 Apixaban [Eliquis] 5 mg PO BID #60 tab 03/12/18 Melatonin 3 mg PO QHS #30 03/12/18 Sennosides [Senokot] 8.6 mg PO DAILY PRN #0 03/12/18 Carvedilol [Coreg (Beta Sushila)] 3.125 mg PO BID tablet 03/14/18 Clonazepam [Klonopin] 1 mg PO QHS #10 tab 03/14/18 Levothyroxine [Synthroid] 50 mcg PO DAILY #1 03/14/18 Oxycodone [Oxyir] 5 mg PO Q6H PRN PRN 7 Days #28 tab 03/14/18 Following Prescrptions Were Given to Patient: Oxycodone [Oxyir] 5 mg PO Q6H PRN PRN 7 Days #28 tab PRN Reason: Severe Pain (-07/05) Clonazepam [Klonopin] 1 mg PO QHS #10 tab Apixaban [Eliquis] 5 mg PO BID #60 tab Primary Care Physician: María Elena Montes De Oca DO [Primary Care Provider] - Please follow up with your Primary Care Physician in: in 1-2 weeks Please Follow Up With: Boone Ch MD When: within 2 weeks When: Psychologist as scheduled Disposition: [facility] facility - [facility] Minutes spent on discharge:: 40 Patient Condition:: Stable Medical Necessity - Tobacco Use Smoking Status: Never smoker Tobacco Use: Non-smoker Meaningful Use Info Meaningful Use Diagnoses (Choose all that apply): None applicable Code Visit Inpatient E&M: 50313 Disch Hosp
--- NOTE | 2018-03-14 17:08 | NURSING ---
report given to Bree at [facility].
--- NOTE | 2018-03-14 17:29 | DS.PCM_ITS ---
Discharge Date and Diagnosis - Problem List Patient Problems: Active and Suspected Problems (Last Reviewed 03/08/18 @ 02:42 by Nick Tamez DO) Metabolic acidosis (Acute) Lactic acid 12.4 at admission Hyperkalemia (Acute) Syncope (Acute) FAN (acute kidney injury) (Acute) DVT of axillary vein, acute left (Acute) Deep vein thrombosis (DVT) of brachial vein of left upper extremity (Acute) Acute metabolic encephalopathy (Acute) Cardiogenic shock (Acute) Demand ischemia (Acute) Date of Admission: 03/08/18 Date of Discharge: 03/14/18 - Primary Discharge Diagnosis Active and Suspected Problems (Last Reviewed 03/08/18 @ 02:42 by Nick Tamez DO) Metabolic acidosis (Acute) - Lactic acid 12.4 at admission Hyperkalemia (Acute) Syncope (Acute) FAN (acute kidney injury) (Acute) DVT of axillary vein, acute left (Acute) Deep vein thrombosis (DVT) of brachial vein of left upper extremity (Acute) Acute metabolic encephalopathy (Acute) Cardiogenic shock (Acute) Demand ischemia (Acute) Acute respiratory insufficiency - Secondary Discharge Diagnosis Chronic Problems (Last Reviewed 03/08/18 @ 02:42 by Nick Tamez DO) Anemia (Chronic) Pulmonary hypertension (Chronic) PA systolic estimated at 53 on echocardiogram done in February 2018 Mitral regurgitation (Chronic) - 3+ Tricuspid regurgitation (Chronic) - 3+ Type 2 diabetes mellitus without complications (Chronic) S/P implantation of automatic cardioverter/defibrillator (AICD) (Chronic) 10/06/2009 @ [facility] Nonischemic cardiomyopathy in other diseases classified elsewhere (Chronic) EF is 15% with global left ventricular dysfunction and no wall motion abnormalities Abnormal electrocardiogram (Chronic) Shortness of breath (Chronic) Diffuse large B-cell lymphoma (Chronic) Chronic renal failure stage III Hospital Course and Treatment Imaging Results: Clinical Impression(s) from Imaging Studies Chest X-Ray 03/07/18 22:32 IMPRESSION: Moderate cardiomegaly with no evidence of pulmonary vascular congestion. Electronically Signed: Lamberto Arreola DO at 23:00 EDT , Service support , Chest X-Ray 03/07/18 23:47 IMPRESSION: Right internal jugular central line with the tip at the junction of superior vena cava and right atrium, in its expected location. No pneumothorax. Stable cardiomegaly. Electronically Signed: Jin Rolon MD at 0:12 EDT , Service support , Brain CT 03/08/18 00:27 IMPRESSION: Normal unenhanced CT scan of the brain. Electronically Signed: Jin Rolon MD at 1:58 EDT , Service support , KUB X-Ray 03/08/18 02:59 IMPRESSION: Nonspecific bowel gas pattern without evidence of obstruction. Electronically Signed: Jin Rolon MD at 4:14 EDT , Service support , Laboratory Results - last 24 hr 03/13/18 03/14/18 03/14/18 21:30 06:53 11:05 POC Glucose 196 H 109 124 H 03/14/18 16:26 POC Glucose [address] Boone Ch-cardiology Dr. Patrick Willson-actuarial consultant Operations: None Procedures: 2-D Echocardiogram Summary of Care Provided: The patient is a 53 year old F with a past medical history of severe nonischemic cardiomyopathy with a 25% ejection fraction, AICD, diabetes mellitus type 2, morbid obesity, history of diffuse large B-cell lymphoma, pulmonary hypertension, mitral regurgitation and tricuspid regurgitation who presented to the emergency department at [facility] on 2017 after being found unresponsive in her bathroom. Vital signs at presentation to the emergency room were temp 37.3, pulse rate 88, respiratory rate 24, pressure 95/66 and pulse ox was 98% on a 2 L nasal cannula. Lab showed a low sodium of 129 with a potassium of 7.6. The BUN was 30 and the creatinine was 1.90. Creatinine in October 2017 was 0.85. Random blood sugar was 310 and a hemoglobin A1c was 5.7. Lactic acid was initially 12.4 and the patient had been taking metformin. Total bilirubin was elevated at 2.4 and the AST and ALT were increased at 149 and 120 respectively. Initial troponin was 0.081. The second troponin was 0.781. Brain CT was unremarkable. She was admitted to the intensive care unit and started on a bicarbonate drip. Diuretics were held. Metformin and lisinopril were held. Consult patient was ordered for Dr. Willson. Dr. Ch was also consulted. The acidosis progressively improved. She did require Levophed to maintain her pressure of with a mean systolic of 65. An echocardiogram showed an ejection fraction of 15 % which was down from her last echocardiogram that showed 25% ejection fraction. There were no segmental wall motion abnormalities noted. The PA pressure was elevated at 53 and she had 2+ tricuspid valve regurgitation and 3+ mitral valve regurgitation. Dr. Ch recommended weaning Levophed as tolerated. He felt the increase in troponin was likely secondary to demand ischemia since the patient has normal coronary arteries on cardiac catheterization. On PE she was noted to have swelling of the left upper extremity and a venous Doppler was ordered and showed acute DVT in the left axillary and left brachial veins. She was started on Eliquis 2.5 mg twice daily at the recommendation of Dr. Ch. An arterial study was also ordered on the left upper extremity and the patient had normal circulation in the left arm. Interrogation of the AICD showed no VT/VF episodes since the last check in October 2017. She was weaned off pressors and transferred to the progressive care unit. Discharge was planned for 03/12/2018 however the patient felt she was too weak to go home and so she was held in the hospital until precertification could be obtained for transfer to senior care. She was transferred to [facility] on 03/14/2018 for PT/OT/strengthening prior to returning home. She should follow up with Dr. Ch she should follow-up with Dr. María Elena Montes De Oca in 1-2 weeks. Within 2 weeks. She will follow-up with her psychologist as previously scheduled. Physical exam: General: Alert, Oriented x3, Cooperative, No apparent distress. good mood and good color in her face HEENT: Atraumatic, PERRLA, EOMI, Normocephalic Oral: Moist Mucosa Neck: Supple, No JVD, Negative Carotid Bruits Lungs: Clear to auscultation, Normal air movement, no conversational dyspnea and she had symmetric chest rise. Cardiovascular: Regular rate, Regular Rhythm, Normal S1, Normal S2, No murmurs, no gallop, no rub Abdomen: Bowel Sounds Present, Soft, Non Tender, Non-Distended, No Hepato- splenomegaly Extremities: No pitting edema Skin: No rashes Musculoskeletal: No Tenderness to Palpation of Joints or Extremities Lymphatic: No Cervical, Supraclavicular, or Inguinal Adenopathy Neurological: Cranial nerves II-XII grossly intact Psych/Mental Status: Normal Affect, Appropriate Discharge Activity: Return to Normal Activity Home Medications: Medications to take at Discharge Amitriptyline HCl 1 - 2 mg PO QHS PRN 03/07/18 Cholecalciferol (Vitamin D3) [Vitamin D3] 5,000 unit PO DAILY 03/07/18 Digoxin 125 mcg PO DAILY 03/07/18 Folic Acid 1 mg PO BIDCM 03/07/18 Gabapentin [Neurontin] 100 mg PO BID 03/07/18 Lamotrigine [Lamictal] 200 mg PO QHS 03/07/18 Omeprazole [Prilosec] 20 mg PO DAILY 03/07/18 Ondansetron HCl [Zofran] 4 mg PO Q8H PRN 03/07/18 Simvastatin [Zocor] 10 mg PO QHS 03/07/18 Venlafaxine HCl [Venlafaxine HCl ER] 150 mg PO DAILY 03/07/18 Apixaban [Eliquis] 5 mg PO BID #60 tab 03/12/18 Melatonin 3 mg PO QHS #30 03/12/18 Sennosides [Senokot] 8.6 mg PO DAILY PRN #0 03/12/18 Carvedilol [Coreg (Beta Sushila)] 3.125 mg PO BID tablet 03/14/18 Clonazepam [Klonopin] 1 mg PO QHS #10 tab 03/14/18 Levothyroxine [Synthroid] 50 mcg PO DAILY #1 03/14/18 Oxycodone [Oxyir] 5 mg PO Q6H PRN PRN 7 Days #28 tab 03/14/18 Following Prescrptions Were Given to Patient: Oxycodone [Oxyir] 5 mg PO Q6H PRN PRN 7 Days #28 tab PRN Reason: Severe Pain (-07/05) Clonazepam [Klonopin] 1 mg PO QHS #10 tab Apixaban [Eliquis] 5 mg PO BID #60 tab Primary Care Physician: María Elena Montes De Oca DO [Primary Care Provider] - Please follow up with your Primary Care Physician in: in 1-2 weeks Please Follow Up With: Boone Ch MD When: within 2 weeks When: Psychologist as scheduled Disposition: Senior Living facility - [facility] Minutes spent on discharge:: 40 Patient Condition:: Stable Medical Necessity - Tobacco Use Smoking Status: Never smoker Tobacco Use: Non-smoker Meaningful Use Info Meaningful Use Diagnoses (Choose all that apply): None applicable Code Visit Inpatient E&M: 66502 Disch Hosp
== END 2018-03-14 18:30 | disposition skilled nursing facility (03) | DRG 640 ==
LOC: ED 22:59 → ICU 03-08 02:28 → ED 03-08 03:19 → ICU 03-08 03:22 → PCU 03-10 15:39
PROVIDERS: Internal Medicine; Internal Medicine Critical Care Medicine; Emergency Provider Emergency Medicine; Family Provider Internal Medicine; PCP Internal Medicine; Visit Provider Internal Medicine
DX: E87.2 Acidosis (principal); G93.41 Metabolic encephalopathy; R57.0 Cardiogenic shock; N17.9 Acute kidney failure, unspecified; Z94.84 Stem cells transplant status; I82.A12 Acute embolism and thrombosis of left axillary vein; I42.9 Cardiomyopathy, unspecified; C83.39 Diffuse large B-cell lymphoma, extranodal and solid organ sites; I50.22 Chronic systolic (congestive) heart failure; I24.8 Other forms of acute ischemic heart disease; I13.0 Hypertensive heart and chronic kidney disease with heart failure and stage 1 through stage 4 chronic kidney disease, or unspecified chronic kidney disease; E87.5 Hyperkalemia; Z95.810 Presence of automatic (implantable) cardiac defibrillator; D64.9 Anemia, unspecified; I27.20 Pulmonary hypertension, unspecified; Z79.84 Long term (current) use of oral hypoglycemic drugs; E66.9 Obesity, unspecified; Z68.37 Body mass index [BMI] 37.0-37.9, adult; R06.89 Other abnormalities of breathing; M79.7 Fibromyalgia; E11.22 Type 2 diabetes mellitus with diabetic chronic kidney disease; N18.3 Chronic kidney disease, stage 3 (moderate)
CPT/HCPCS: 36556; 36600; 70450; 71045; 74018; 80048; 80076; 80162; 80307; 80320; 80329; 81001; 82009; 82728; 82803; 82962; 83036; 83540; 83550; 83605; 83690; 83735; 84484; 85025; 85027; 85610; 85730; 87641; 92526; 93005; 93306; 93931; 93971; 94640; 97110; 97116; 97162; 97166; 97530; 97802; 99285; J7030; P9047; Q9957; A4216; C1751; G0480; J2405

== ENCOUNTER → 2018-04-05 10:57 | Outpatient (CLI) | payer MEDICARE, SELFPAY ==
--- NOTE | 2018-04-05 11:17 | CT_ITS ---
STUDY: CT BRAIN WITHOUT CONTRAST REASON FOR EXAM: Female, 53 years old. Fall with altered mental status RADIATION DOSAGE (If Supplied By Facility): CTDIvol = ( 44.99 ) mGy, DLP = ( 745.49 ) mGycm TECHNIQUE: Transaxial CT imaging of the brain was performed without administration of intravenous contrast material. Individualized dose optimization techniques were used for this CT. COMPARISON: 03/08/2018 FINDINGS: Adjacent to the right parietal lobe, there appears to be an area of isodense subdural fluid collection which was not clearly identifiable on the most recent prior head CT. This is seen on both the axial and coronal sequences. Unsure if this represents small subacute subdural hematoma. Normal soft tissue structures. Normal calvarium. There is mild cerebral atrophy with widening of the extra-axial spaces and ventricular dilatation. There are areas of decreased attenuation within the white matter tracts of the supratentorial brain, consistent with microvascular disease changes. Normal basal ganglia and thalami. Normal brainstem. Normal cerebellum. Normal visualized paranasal sinuses. CT/Brain/Head without Contrast IMPRESSION: 1. Questionable small area of isodense subdural fluid along the right parietal lobe as detailed above. Possible hygroma? Not seen on the most recent prior exam. May represent volume averaging versus resolving small subdural hematoma. MRI brain needed to further evaluate 2. Otherwise, mild chronic involutional changes of the brain N.B. : The above information has been verbally conveyed by Levy Lucas DO to connected , Covering Physician, on 04/05/2018 14:06:03 (ET). Electronically Signed: Levy Lucas DO at 14:06 EDT Tel , Service support , N.B. : The above information has been verbally conveyed by Levy Lucas DO to connected , Covering Physician, on 04/05/2018 14:06:03 (ET).
[2018-04-05 11:37] LABS: Hematocrit 36.8 % (37-47); Mean Corp Hgb Conc 29.9 g/gl (32-36); Mean Corpuscular Hgb 31.3 pg (27.0-32.0); Mean Corpuscular Volume 104.5 fL (81-99); Mean Platelet Vol. 10.6 fl (6.2-12.0); Platelet Count 203 K/mm3 (150-450); RBC Distribution Width CV 22.4 % (11.6-14.6); RBC Distribution Width SD 84.5 fl (35.1-43.9); Red Blood Count 3.52 M/mm3 (4.2-5.4); White Blood Count 6.6 K/mm3 (4.4-11.0)
[2018-04-05 11:39] LABS: Scan Indicated on CBC? Y/N YES- FLAGS NOTED
[2018-04-05 11:55] LABS: ALB/GLOB Ratio 1.1 RATIO (0.9-2.4); AST(SGOT) 43 U/L (15-37); Alanine Aminotransfer ALT/SGPT 22 U/L (13-56); Alkaline Phosphatase 88 U/L (45-117); Anion Gap 9 (5-15); BUN 11 mg/dL (7-18); BUN/Creat Ratio 9.8 RATIO (10-20); Calcium,Total 8.6 mg/dL (8.5-10.1); Chloride 100 mmol/L (98-107); Creatinine, Serum 1.12 mg/dL (0.55-1.02); EST Glomerular Filtration Rate 54 mL/min (>60); Est Glom Filt Rate - Afr Amer 65 mL/min (>60); Globulin 2.8 g/dL (2.2-4.2); Glucose 86 mg/dL (74-106); Potassium 3.3 mmol/L (3.5-5.1); Protein, Total 5.8 g/dL (6.4-8.2); Sodium Level 144 mmol/L (136-145)
== END ==
PROVIDERS: Family Provider Internal Medicine; PCP Internal Medicine; Visit Provider Family Medicine
DX: R41.82 Altered mental status, unspecified (principal); I50.9 Heart failure, unspecified
CPT/HCPCS: 36415; 70450; 80053; 82140; 85027

== ENCOUNTER 2018-04-06 18:12 | Emergency (ER) | payer MEDICARE, SELFPAY ==
[2018-04-06 18:14] VITALS: BP 92/72; PULSE 108; RESP 24; TEMP 36.9; O2SAT 100; BMI 33.3
--- NOTE | 2018-04-06 18:23 | ED.RN ---
PT IS CONFUSED, ANSWERS INAPPROPRIATELY.
--- NOTE | 2018-04-06 18:27 | EKG12_ITS ---
Test Reason : ALT LOC Blood Pressure : / mmHG Vent. Rate : 106 BPM Atrial Rate : 106 BPM P-R Int : 190 ms QRS Dur : 120 ms QT Int : 362 ms P-R-T Axes : 068 -44 098 degrees QTc Int : 480 ms Sinus tachycardia Left axis deviation Inferior infarct , age undetermined Anterolateral infarct , age undetermined Abnormal ECG Confirmed by LISA KING, MERLYN ([id number]), supervising editor news reel ASHLI BARTLETT ([id number]) on 04/11/2018 2:14:50 PM Referred By: Oscar Bartlett Confirmed By:MERLYN GONZALEZ MD
--- NOTE | 2018-04-06 18:27 | CT_ITS ---
STUDY: CT BRAIN WITHOUT CONTRAST REASON FOR EXAM: Female, 53 years old. Confusion and agitation RADIATION DOSAGE (If Supplied By Facility): CTDIvol = ( 44.99 ) mGy, DLP = ( 846.73 ) mGycm TECHNIQUE: Transaxial CT imaging of the brain was performed without administration of intravenous contrast material. Individualized dose optimization techniques were used for this CT. COMPARISON: Head CT yesterday and March 08, 2018 FINDINGS: As described on head CT from yesterday, adjacent to the right parietal lobe, there appears to be an area of isodense subdural fluid collection which was not clearly identifiable on the exam from February. This measures roughly 7 mm wide by 5.7 cm AP. This is seen on both the axial and coronal sequences. Unsure if this represents small subacute subdural hematoma. Normal soft tissue structures. Normal calvarium. There is mild cerebral atrophy with widening of the extra-axial spaces and ventricular dilatation. There are areas of decreased attenuation within the white matter tracts of the supratentorial brain, consistent with microvascular disease changes. Normal basal ganglia and thalami. Normal brainstem. Normal cerebellum. Normal visualized paranasal sinuses. CT/Brain/Head without Contrast IMPRESSION: 1. Questionable small area of isodense subdural fluid along the right parietal lobe as detailed above. Possible hygroma? Not seen on the most recent prior exam. May represent volume averaging versus resolving small subdural hematoma. MRI brain needed to further evaluate 2. Otherwise, mild chronic involutional changes of the brain N.B. : The above information has been verbally conveyed by Levy Lucas DO to Dr. Bacon, Covering Physician, on 04/06/2018 20:45:39 (ET). Electronically Signed: Levy Lucas DO at 20:45 EDT Tel , Service support ,
--- NOTE | 2018-04-06 18:30 | RAD_ITS ---
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 Cough with confusion TECHNIQUE: Single AP portable view of the chest. COMPARISON: 03/07/2018 FINDINGS: Stable left chest wall pacing device The lungs are clear and expanded. There is no demonstrated pleural abnormality. There is mild cardiac enlargement. Normal mediastinum and kari. Normal visualized pulmonary arteries. Normal visualized aortic arch and descending thoracic aorta. There are diffuse degenerative changes of the visualized thoracic spine. There is degenerative osteoarthritis of the bilateral shoulders. There is no demonstrated abnormality of the visualized soft tissue structures of the upper abdomen. RAD/Chest 1 View (Portable) IMPRESSION: No acute cardiopulmonary disease Electronically Signed: Levy Lucas DO at 18:56 EDT Tel , Service support ,
[2018-04-06 19:20] VITALS: BP 103/78; PULSE 104; RESP 12; TEMP 37.5; O2SAT 99
[2018-04-06 19:23] VITALS: TEMP 37.5
[2018-04-06] MEDS: Haloperidol Lactate 5 MG/ML Vial 2 MG IM (19:37)
[2018-04-06 20:06] LABS: International Normalized Ratio 2.3; Prothrombin Time (Protime)PT. 25.6 SECONDS (11.7-14.9)
[2018-04-06 20:07] LABS: Partial Thromboplast Time 41.3 Seconds (24.1-36.2)
[2018-04-06 20:08] LABS: Absolute Lymphocyte Count 0.88 X10^3/ul (0.83-4.51); Absolute Neutrophil Count 7.3 X10^3/uL (2.0-7.7); Basophil# 0.03 X10^3/uL; Basophil% 0.3 % (0-1); Eosinophil# 0.09 X10^3/uL; Hematocrit 37.3 % (37-47); Hemoglobin 11.2 g/dl (12.0-15.0); Lymphocyte # 0.88 X10^3/ul (4.0); Lymphocyte % 9.6 % (19-41); Mean Corpuscular Volume 103.3 fL (81-99); Mean Platelet Vol. 10.5 fl (6.2-12.0); Monocyte% 8.8 % (0-10); Neutrophil # 7.31 X10^3/uL (2.7-7.7); Neutrophil % 80.2 % (47-70); Platelet Count 241 K/mm3 (150-450); RBC Distribution Width CV 22.2 % (11.6-14.6); RBC Distribution Width SD 83.9 fl (35.1-43.9); Red Blood Count 3.61 M/mm3 (4.2-5.4); White Blood Count 9.1 K/mm3 (4.4-11.0)
--- NOTE | 2018-04-06 20:08 | NURSING ---
PATIENT MEDICATED WITH 2 MG OF HALDOL. PT WAS BEING COOPERATIVE AND AGREED TO A STRAIGHT CATH. PT WAS COOPERATIVE WHEN REMOVING PANTS AND DEPENDS. WHEN SOCKS WERE REMOVED, PT'S LEFT FOOT AND TOES APPEARED EDEMATOUS AND VERY BRUISED. PT DENIES A FALL. PT DENIES PAIN TO AREA. PT ALSO HAS MULTIPLE OTHER BRUISES ON BODY. PT BECAME AGITATED WHEN ATTEMPTING TO PLACE PT'S LEGS IN PLACE TO STRAIGHT CATH AND YELLED, WHY DON'T YOU HIT ME, I KNOW YOU WANT TO HIT ME. THIS NURSE ALERTED ER PHYSICIAN. THIS NURSE ATTEMPTED TO CALL [facility] FOR A NURSE TO NURSE REPORT ON PATIENT AND TO ASK IF PT HAS A HAD A FALL, AND WHAT HER NORMAL MENTALITY IS.
[2018-04-06 20:13] VITALS: BP 113/70; PULSE 97; RESP 22; O2SAT 97
[2018-04-06 20:19] LABS: Differential Indicated SCAN CRITERIA MET; POSITIVE COUNT NO; POSITIVE DIFFERENTIAL NO; POSITIVE MORPHOLOGY YES
[2018-04-06 20:22] LABS: ALB/GLOB Ratio 0.9 RATIO (0.9-2.4); AST(SGOT) 58 U/L (15-37); Alanine Aminotransfer ALT/SGPT 22 U/L (13-56); Albumin, Serum 3.1 g/dL (3.2-5.0); Alkaline Phosphatase 101 U/L (45-117); Anion Gap 12 (5-15); BUN 14 mg/dL (7-18); BUN/Creat Ratio 10.5 RATIO (10-20); Calcium,Total 8.7 mg/dL (8.5-10.1); Chloride 98 mmol/L (98-107); Creatinine, Serum 1.33 mg/dL (0.55-1.02); EST Glomerular Filtration Rate 44 mL/min (>60); Est Glom Filt Rate - Afr Amer 54 mL/min (>60); Estimated Creatinine Clearance 43.51 ml/min; Globulin 3.4 g/dL (2.2-4.2); Glucose 76 mg/dL (74-106); Potassium 4.8 mmol/L (3.5-5.1); Protein, Total 6.5 g/dL (6.4-8.2); Sodium Level 140 mmol/L (136-145)
[2018-04-06 20:23] LABS: Lactic Acid 6.7 mmol/L (0.4-2.0)
[2018-04-06 20:38] LABS: Platelet Estimate ADEQUATE (ADEQ)
[2018-04-06 20:39] LABS: Anisocytosis 1+; Macrocytosis 1+
[2018-04-06 20:40] LABS: Ovalocyte RARE
[2018-04-06 21:08] LABS: Red Blood Cells-Urine 0 SEEN /hpf (0-5); Squamous Epithelial Cells - UA 0 SEEN /hpf (5-10)
[2018-04-06 21:21] LABS: Color, Urine Yellow (Yellow); Glucose, Dipstick Normal (Normal); Ketone-Dipstick 50 mg/dl (Negative); Leukocyte Esterase-Dipstick 500 /ul (Negative); Nitrite-Dipstick Positive (Negative); Occult Blood-Urine 25 /ul (Negative); Protein-Dipstick 100 mg/dl (Negative); Urine Clarity Cloudy (Clear); Urine Urobilinogen 12 mg/dl (Normal)
[2018-04-06 21:24] LABS: Urine Bilirubin Dipstick 3 mg/dL (Negative)
[2018-04-06 21:27] LABS: Bacteria 4+ /hpf (None Seen)
[2018-04-06 21:28] LABS: Hyaline Cast 5-10 SEEN /lpf (0-5); Mucous, Urine 1+ /hpf (<or=2+)
[2018-04-06 21:32] LABS: White Blood Cells 50-100 SEEN /hpf (0-5)
[2018-04-06] MEDS: Ceftriaxone 1 GM/50 ML BAG IV (21:56)
[2018-04-06 22:15] VITALS: BP 104/62; PULSE 93; RESP 17; O2SAT 99
--- NOTE | 2018-04-06 23:10 | ED.VISSUMM ---
- ER Visit Summary Date of Service: 04/06/18 Chief Complaint: Change of mental status History of Present Illness: The patient is a 53 F presenting for evaluation secondary to altered mental status. Patient was recently admitted to the hospital, and had a workup for congestive heart failure. She was found to have an ejection fraction 15% was discharged to a [facility]. Apparently the patient became combative and confused today. Additional history is unable to be obtained from patient, and the only thing the usp said is that she was out of and confused. Patient apparently had an outpatient CT performed yesterday that showed a possible hygroma versus subacute resolving subdural hematoma. Patient apparently did have a distance but not recent fall and she is on Eliquis. Physical Examination: Blood pressure 92/72, heart rate 108. Well-nourished female no acute distress. Head normocephalic atraumatic. PRL, EOMI. Dry mucous membranes are noted. Heart was tachycardic and regular with distant heart sounds. Lung sounds clear. Abdomen was diffusely tender, no guarding or rebound, no evidence of masses or distention. 2+ bilaterally symmetric lower extremity edema. Skin was normal color no rash. Patient was alert and oriented only to self but had no lateralizing neurological deficits. Test Results: CT brain continues to demonstrate a right parietal hygroma versus stable subacute subdural hematoma with no change. EKG demonstrates a rate of 106 with old anterolateral Q waves unchanged from prior EKG. CBC unremarkable, chemistry shows creatinine 1.3 anion gap at 12 INR was 2.3 urinalysis shows evidence of 50-100 white cells with 4+ bacteria nitrates. Troponin was indeterminate at 0.046, lactic acid was 6.7. Emergency Department Course and Treatment: Patient presented secondary to altered mental status. Patient was evaluated as noted above. I had a discussion with the radiologist about the patient's CT changes, he states that these are completely unchanged from the prior scan and he recommends a follow-up MRI to further characterize this. Patient was found to have lactic acidosis. She has normal blood pressure and was only mildly tachycardic, and given her profound history of congestive heart failure with an ejection fraction of 15% I do not believe that bolusing the patient with a large amount of fluids is appropriate she was rather placed on a 250 cc/h fluid resuscitation. Patient was found to have a urinary tract infection she was given Rocephin after cultures were obtained. I had a discussion with the hospitalist Dr. Manuel, about admitting this patient, he states that given the fact that given the fact that the patient has these changes on CT he would want a MRI on the patient prior to admitting the patient. I had a discussion with the educational technology coordinator, and the patient's current symptoms and findings on CT did not meet their criteria for emergent MRI at this time of night. I had a further discussion with the hospitalist about this, and he would like the patient transferred to a higher level of care. I had a discussion with Porfirio bearden about this, they agreed to accept patient to intensive care. Disposition: Transfer Impression: 1. Urinary tract infection 2. Metabolic encephalopathy 3. Right parietal hygroma versus subacute subdural hematoma 4. Lactic acidosis Critical care time 45 minutes This note was generated with [employer] dictation software. It may contain incorrect words, spelling, and punctuation that were not noted in review of the chart prior to signing ED Disposition - Plan for ED Patient: Chief Complaint: Alt LOC Referrals: Oscar Bartlett MD [Primary Care Provider] -
--- NOTE | 2018-04-06 23:17 | ED.DCSUM_ITS ---
- ER Visit Summary Date of Service: 04/06/18 Chief Complaint: Change of mental status History of Present Illness: The patient is a 53 F presenting for evaluation secondary to altered mental status. Patient was recently admitted to the hospital, and had a workup for congestive heart failure. She was found to have an ejection fraction 15% was discharged to a [facility]. Apparently the patient became combative and confused today. Additional history is unable to be obtained from patient, and the only thing the [facility] said is that she was out of and confused. Patient apparently had an outpatient CT performed yesterday that showed a possible hygroma versus subacute resolving subdural hematoma. Patient apparently did have a distance but not recent fall and she is on Eliquis. Physical Examination: Blood pressure 92/72, heart rate 108. Well-nourished female no acute distress. Head normocephalic atraumatic. PRL, EOMI. Dry mucous membranes are noted. Heart was tachycardic and regular with distant heart sounds. Lung sounds clear. Abdomen was diffusely tender, no guarding or rebound, no evidence of masses or distention. 2+ bilaterally symmetric lower extremity edema. Skin was normal color no rash. Patient was alert and oriented only to self but had no lateralizing neurological deficits. Test Results: CT brain continues to demonstrate a right parietal hygroma versus stable subacute subdural hematoma with no change. EKG demonstrates a rate of 106 with old anterolateral Q waves unchanged from prior EKG. CBC unremarkable, chemistry shows creatinine 1.3 anion gap at 12 INR was 2.3 urinalysis shows evidence of 50-100 white cells with 4+ bacteria nitrates. Troponin was indeterminate at 0.046, lactic acid was 6.7. Emergency Department Course and Treatment: Patient presented secondary to altered mental status. Patient was evaluated as noted above. I had a discussion with the radiologist about the patient's CT changes, he states that these are completely unchanged from the prior scan and he recommends a follow- up MRI to further characterize this. Patient was found to have lactic acidosis. She has normal blood pressure and was only mildly tachycardic, and given her profound history of congestive heart failure with an ejection fraction of 15% I do not believe that bolusing the patient with a large amount of fluids is appropriate she was rather placed on a 250 cc/h fluid resuscitation. Patient was found to have a urinary tract infection she was given Rocephin after cultures were obtained. I had a discussion with the hospitalist Dr. Manuel, about admitting this patient, he states that given the fact that given the fact that the patient has these changes on CT he would want a MRI on the patient prior to admitting the patient. I had a discussion with the corn lab technician, and the patient's current symptoms and findings on CT did not meet their criteria for emergent MRI at this time of night. I had a further discussion with the hospitalist about this, and he would like the patient transferred to a higher level of care. I had a discussion with Porfirio bearden about this, they agreed to accept patient to intensive care. Disposition: Transfer Impression: 1. Urinary tract infection 2. Metabolic encephalopathy 3. Right parietal hygroma versus subacute subdural hematoma 4. Lactic acidosis Critical care time 45 minutes This note was generated with [employer] dictation software. It may contain incorrect words, spelling, and punctuation that were not noted in review of the chart prior to signing ED Disposition - Plan for ED Patient: Chief Complaint: Alt LOC Referrals: Oscar Bartlett MD [Primary Care Provider] -
[2018-04-06 23:37] LABS: Reflex Lactate? Y
[2018-04-07 00:03] VITALS: BP 98/63; PULSE 90; RESP 11; RESP 12; TEMP 37.1; O2SAT 95
[2018-04-07 00:13] LABS: Lactic Acid 2.6 mmol/L (0.4-2.0)
== END 2018-04-07 00:21 | disposition short-term general hospital (02) ==
PROVIDERS: Emergency Provider Emergency Medicine; Family Provider Family Medicine; PCP Family Medicine
DX: G93.41 Metabolic encephalopathy (principal); N39.0 Urinary tract infection, site not specified; E87.2 Acidosis; I50.9 Heart failure, unspecified; I27.20 Pulmonary hypertension, unspecified; Z86.718 Personal history of other venous thrombosis and embolism; Z85.72 Personal history of non-Hodgkin lymphomas; Z79.02 Long term (current) use of antithrombotics/antiplatelets; Z79.899 Other long term (current) drug therapy
CPT/HCPCS: 70450; 71045; 80053; 81001; 83605; 84484; 85025; 85610; 85730; 87040; 87077; 87086; 87088; 87186; 93005; 96365; 96372; 99285; J7030; P9612; A4216

== ENCOUNTER → 2018-05-25 08:58 | Outpatient (CLI) | payer MEDICARE, SELFPAY ==
[2018-05-25 09:51] LABS: Bacteria 0 SEEN /hpf (None Seen); Mucous, Urine 0 SEEN /hpf (<or=2+)
[2018-05-25 10:25] LABS: Absolute Lymphocyte Count 0.95 X10^3/ul (0.83-4.51); Absolute Neutrophil Count 3.5 X10^3/uL (2.0-7.7); Basophil# 0.03 X10^3/uL; Basophil% 0.5 % (0-1); Eosinophil# 0.41 X10^3/uL; Eosinophils% 7.3 % (0-5); Lymphocyte # 0.95 X10^3/ul (4.0); Mean Corp Hgb Conc 32.4 g/gl (32-36); Mean Corpuscular Hgb 34.3 pg (27.0-32.0); Mean Corpuscular Volume 105.9 fL (81-99); Mean Platelet Vol. 9.5 fl (6.2-12.0); Monocyte# 0.65 X10^3/uL; Monocyte% 11.6 % (0-10); Neutrophil # 3.54 X10^3/uL (2.7-7.7); Neutrophil % 63.4 % (47-70); Platelet Count 275 K/mm3 (150-450); RBC Distribution Width CV 16.9 % (11.6-14.6); RBC Distribution Width SD 62.2 fl (35.1-43.9); Red Blood Count 3.21 M/mm3 (4.2-5.4); White Blood Count 5.6 K/mm3 (4.4-11.0)
[2018-05-25 10:30] LABS: POSITIVE COUNT NO; POSITIVE DIFFERENTIAL NO; POSITIVE MORPHOLOGY NO
[2018-05-25 10:31] LABS: Color, Urine Yellow (Yellow); Glucose, Dipstick Normal (Normal); Ketone-Dipstick Negative (Negative); Leukocyte Esterase-Dipstick 100 /ul (Negative); Nitrite-Dipstick Negative (Negative); Occult Blood-Urine Negative /ul (Negative); Protein-Dipstick 15 mg/dl (Negative); Specific Gravity, Urine 1.015 (1.002-1.030); Urine Clarity Clear (Clear); Urine Urobilinogen 8 mg/dl (Normal)
[2018-05-25 10:36] LABS: Urine Bilirubin Dipstick 1 mg/dL (Negative)
[2018-05-25 10:46] LABS: Microalbumin,Random Urine 10.9 mg/L (NO RANGE EST.); Microalbumin:Creatinine Ratio 7.8 mg/g CRE (<30 mg/g CRE)
[2018-05-25 10:56] LABS: Red Blood Cells-Urine 0-5 SEEN /hpf (0-5); Squamous Epithelial Cells - UA 0-5 SEEN /hpf (5-10); White Blood Cells 0-5 SEEN /hpf (0-5)
[2018-05-25 11:10] LABS: ALB/GLOB Ratio 0.9 RATIO (0.9-2.4); AST(SGOT) 38 U/L (15-37); Alanine Aminotransfer ALT/SGPT 23 U/L (13-56); Albumin, Serum 2.9 g/dL (3.2-5.0); Alkaline Phosphatase 149 U/L (45-117); Anion Gap 9 (5-15); BUN 10 mg/dL (7-18); BUN/Creat Ratio 16.4 RATIO (10-20); Chloride 104 mmol/L (98-107); Cholesterol 106 mg/dL (200); Creatinine, Serum 0.61 mg/dL (0.55-1.02); EST Glomerular Filtration Rate 109 mL/min (>60); Est Glom Filt Rate - Afr Amer 132 mL/min (>60); Globulin 3.3 g/dL (2.2-4.2); Glucose 166 mg/dL (74-106); Hemoglobin A1c 5.4 % (4.2-6.3); High Density Lipoprotein 42 mg/dL; Potassium 3.9 mmol/L (3.5-5.1); Protein, Total 6.2 g/dL (6.4-8.2); Sodium Level 141 mmol/L (136-145); Thyroid Stim Hormone (TSH) 0.31 uIU/mL (0.358-3.74); Triglycerides 112 mg/dL; Very Low Density Lipoprotein 22 mg/dL (5-40)
[2018-05-25 11:25] LABS: Digoxin Level 0.71 ng/mL (0.80-2.00)
[2018-05-26 09:12] LABS: Vitamin B12 368 pg/mL (211-911); Vitamin D,25 Hydroxy 64.5 ng/mL (29.95-100.01)
[2018-05-30 09:16] LABS: Free T3 3.2 pg/mL (2.18-3.98); T4 Free Direct 1.11 ng/dL (0.76-1.46)
== END ==
PROVIDERS: Family Provider Internal Medicine; PCP Internal Medicine; Visit Provider Internal Medicine
DX: R60.0 Localized edema (principal); I82.622 Acute embolism and thrombosis of deep veins of left upper extremity; R53.83 Other fatigue; K76.0 Fatty (change of) liver, not elsewhere classified; E55.9 Vitamin D deficiency, unspecified; E03.9 Hypothyroidism, unspecified; E78.2 Mixed hyperlipidemia; E11.9 Type 2 diabetes mellitus without complications; I42.9 Cardiomyopathy, unspecified; E04.1 Nontoxic single thyroid nodule; N39.0 Urinary tract infection, site not specified
CPT/HCPCS: 36415; 80053; 80061; 80162; 81001; 82043; 82105; 82306; 82570; 82607; 83036; 84439; 84443; 84481; 85025; 93971

== ENCOUNTER → 2018-07-14 15:07 | Outpatient (CLI) | payer MEDICARE, SELFPAY ==
--- NOTE | 2018-07-14 15:15 | RAD_ITS ---
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 Shortness of breath. TECHNIQUE: PA and lateral views of the chest. # of Images: 2 COMPARISON: April 06, 2018. FINDINGS: The lungs are hypoexpanded. There is no new mass or infiltrate. There is no demonstrated pleural abnormality. There is mild cardiac enlargement. Stable cardiac pacemaker/ICD. Normal mediastinum and kari. Normal visualized pulmonary arteries. Normal visualized aortic arch and descending thoracic aorta. There is an increased kyphosis of the thoracic spine mild degenerative changes.. There is degenerative osteoarthritis of the bilateral shoulders. There is no demonstrated abnormality of the visualized soft tissue structures of the upper abdomen. RAD/Chest PA and Lateral IMPRESSION: Cardiomegaly with cardiac pacemaker. There is no acute pulmonary disease or interval change. Electronically Signed: Dimitris Valderrama DO at 8:47 EDT Tel [phone], Service support ,
[2018-07-14 16:33] LABS: Absolute Lymphocyte Count 1.23 X10^3/ul (0.83-4.51); Absolute Neutrophil Count 5.1 X10^3/uL (2.0-7.7); Basophil# 0.05 X10^3/uL; Basophil% 0.7 % (0-1); Eosinophil# 0.28 X10^3/uL; Eosinophils% 3.9 % (0-5); Hematocrit 36.5 % (37-47); Hemoglobin 11.6 g/dl (12.0-15.0); Lymphocyte # 1.23 X10^3/ul (4.0); Lymphocyte % 17.2 % (19-41); Mean Corp Hgb Conc 31.8 g/gl (32-36); Mean Corpuscular Hgb 33.2 pg (27.0-32.0); Mean Corpuscular Volume 104.6 fL (81-99); Mean Platelet Vol. 10.3 fl (6.2-12.0); Monocyte# 0.45 X10^3/uL; Monocyte% 6.3 % (0-10); Neutrophil # 5.14 X10^3/uL (2.7-7.7); Neutrophil % 71.8 % (47-70); Platelet Count 301 K/mm3 (150-450); RBC Distribution Width CV 14.1 % (11.6-14.6); RBC Distribution Width SD 52.2 fl (35.1-43.9); Red Blood Count 3.49 M/mm3 (4.2-5.4); White Blood Count 7.2 K/mm3 (4.4-11.0)
[2018-07-14 16:44] LABS: POSITIVE COUNT NO; POSITIVE DIFFERENTIAL NO; POSITIVE MORPHOLOGY NO
[2018-07-14 17:00] LABS: Anion Gap 7 (5-15); BUN 15 mg/dL (7-18); BUN/Creat Ratio 16.6 RATIO (10-20); Calcium,Total 9.5 mg/dL (8.5-10.1); Chloride 103 mmol/L (98-107); EST Glomerular Filtration Rate 69 mL/min (>60); Est Glom Filt Rate - Afr Amer 84 mL/min (>60); Glucose 257 mg/dL (74-106); Potassium 4.1 mmol/L (3.5-5.1); Sodium Level 140 mmol/L (136-145)
[2018-07-14 17:10] LABS: BNP,B-Type NATRIURETIC PEPTIDE 892.7 pg/mL (0-100)
== END ==
PROVIDERS: Family Provider Internal Medicine; PCP Internal Medicine; Referring Provider Nurse Practitioner Family; Visit Provider Nurse Practitioner Family
DX: R06.09 Other forms of dyspnea (principal); D64.9 Anemia, unspecified; I42.8 Other cardiomyopathies
CPT/HCPCS: 36415; 71046; 80048; 83880; 85025

== ENCOUNTER → 2018-07-19 09:10 | Outpatient (CLI) | payer MEDICARE, SELFPAY ==
[2018-07-19 09:40] LABS: Absolute Lymphocyte Count 1.16 X10^3/ul (0.83-4.51); Absolute Neutrophil Count 6.1 X10^3/uL (2.0-7.7); Basophil# 0.04 X10^3/uL; Basophil% 0.5 % (0-1); Eosinophil# 0.31 X10^3/uL; Eosinophils% 3.9 % (0-5); Hematocrit 37.4 % (37-47); Hemoglobin 11.8 g/dl (12.0-15.0); Lymphocyte # 1.16 X10^3/ul (4.0); Lymphocyte % 14.5 % (19-41); Mean Corp Hgb Conc 31.6 g/gl (32-36); Mean Corpuscular Volume 101.4 fL (81-99); Mean Platelet Vol. 10.1 fl (6.2-12.0); Monocyte# 0.41 X10^3/uL; Monocyte% 5.1 % (0-10); Neutrophil # 6.09 X10^3/uL (2.7-7.7); Neutrophil % 75.9 % (47-70); Platelet Count 284 K/mm3 (150-450); RBC Distribution Width CV 14.3 % (11.6-14.6); Red Blood Count 3.69 M/mm3 (4.2-5.4)
[2018-07-19 09:41] LABS: POSITIVE COUNT NO; POSITIVE DIFFERENTIAL NO; POSITIVE MORPHOLOGY NO
[2018-07-19 10:11] LABS: Vitamin B12 659 pg/mL (211-911)
[2018-07-19 10:13] LABS: Anion Gap 9 (5-15); BUN 16 mg/dL (7-18); BUN/Creat Ratio 18.5 RATIO (10-20); Calcium,Total 9.3 mg/dL (8.5-10.1); Chloride 98 mmol/L (98-107); Creatinine, Serum 0.86 mg/dL (0.55-1.02); EST Glomerular Filtration Rate 73 mL/min (>60); Est Glom Filt Rate - Afr Amer 88 mL/min (>60); Glucose 198 mg/dL (74-106); Potassium 3.6 mmol/L (3.5-5.1); Sodium Level 134 mmol/L (136-145); Thyroid Stim Hormone (TSH) 4.09 uIU/mL (0.358-3.74)
== END ==
PROVIDERS: Family Provider Internal Medicine; PCP Internal Medicine; Referring Provider Internal Medicine; Visit Provider Internal Medicine
DX: E11.9 Type 2 diabetes mellitus without complications (principal); E53.8 Deficiency of other specified B group vitamins; E87.6 Hypokalemia; R06.09 Other forms of dyspnea
CPT/HCPCS: 36415; 80048; 82607; 84443; 85025

== ENCOUNTER → 2018-07-28 10:58 | Outpatient (CLI) | payer MEDICARE, SELFPAY ==
[2018-07-28 13:05] LABS: Anion Gap 12 (5-15); BUN 11 mg/dL (7-18); BUN/Creat Ratio 12.5 RATIO (10-20); Calcium,Total 8.8 mg/dL (8.5-10.1); Chloride 100 mmol/L (98-107); Creatinine, Serum 0.88 mg/dL (0.55-1.02); EST Glomerular Filtration Rate 71 mL/min (>60); Est Glom Filt Rate - Afr Amer 86 mL/min (>60); Glucose 411 mg/dL (74-106); Potassium 3.2 mmol/L (3.5-5.1); Sodium Level 138 mmol/L (136-145)
== END ==
PROVIDERS: Family Provider Internal Medicine; PCP Internal Medicine; Referring Provider Nurse Practitioner Family; Visit Provider Nurse Practitioner Family
DX: E87.1 Hypo-osmolality and hyponatremia (principal)
CPT/HCPCS: 36415; 80048

== ENCOUNTER → 2018-08-29 12:37 | Outpatient (CLI) | payer MEDICARE, SELFPAY ==
[2018-08-29 12:37] VITALS: BMI 33.2
[2018-08-29 13:52] LABS: Hemoglobin A1c 10.6 % (4.2-6.3)
[2018-08-29 14:13] LABS: Vitamin B12 1303 pg/mL (211-911); Vitamin D,25 Hydroxy 62.4 ng/mL (29.95-100.01)
[2018-08-29 14:16] LABS: CPK Total, Creatine Kinase 33 U/L (26-192); Rheumatoid Factor < 10.0 IU/mL (<15); Thyroid Stim Hormone (TSH) 2.71 uIU/mL (0.358-3.74)
[2018-08-30 12:07] LABS: SJOGREN'S Anti-SS-A test < 0.2 AI (0.0-0.9); SJOGREN'S Anti-SS-B test < 0.2 AI (0.0-0.9)
[2018-08-30 14:21] LABS: ANTINUCLEAR ANTIBODIES DIRECT Negative (Negative)
[2018-08-30 20:09] LABS: Albumin 3.4 g/dL (2.9-4.4); Alpha-1-Globulin, Ur 7.6 % (.); Alpha-1-Globulins 0.3 g/dL (0.0-0.4); Alpha-2-Globulins 0.9 g/dL (0.4-1.0); Alpha-2-Globulins, Ur 10.8 % (.); Beta Globulin, Ur 14.2 % (.); Cytoplasmic Ab (C-ANCA) <1:20 titer (Neg:<1:20); Gamma Globulin 0.6 g/dL (0.4-1.8); Gamma Globulin, Ur 5.5 % (.); Immunoglobulin A 69 mg/dL (87-352); Immunoglobulin G 538 mg/dL (700-1600); Immunoglobulin M 103 mg/dL (26-217); M-Spike, Ur % Not Observed % (Not Observed); PROEL- TOTAL PROTEIN 6.3 g/dL (6.0-8.5); Total Protein, Ur 27.8 mg/dL (Not Estab.)
[2018-08-31 08:15] LABS: Perinuclear Ab (P-ANCA) <1:20 titer (Neg:<1:20)
== END ==
PROVIDERS: Family Provider Internal Medicine; PCP Internal Medicine; Referring Provider Psychiatry & Neurology Neurology; Visit Provider Psychiatry & Neurology Neurology
DX: E11.9 Type 2 diabetes mellitus without complications (principal); E55.9 Vitamin D deficiency, unspecified; R26.81 Unsteadiness on feet; R29.6 Repeated falls; G62.9 Polyneuropathy, unspecified
CPT/HCPCS: 36415; 82306; 82550; 82607; 82784; 83036; 84165; 84166; 84443; 86038; 86235; 86256; 86334; 86335; 86431

== ENCOUNTER → 2018-09-04 13:50 | Outpatient (CLI) | payer MEDICARE, SELFPAY ==
[2018-08-29 12:37] VITALS: BMI 33.2
[2018-09-04 14:13] LABS: Absolute Lymphocyte Count 1.08 X10^3/ul (0.83-4.51); Absolute Neutrophil Count 5.9 X10^3/uL (2.0-7.7); Basophil# 0.03 X10^3/uL; Basophil% 0.4 % (0-1); Eosinophil# 0.17 X10^3/uL; Eosinophils% 2.3 % (0-5); Hematocrit 38.2 % (37-47); Hemoglobin 11.7 g/dl (12.0-15.0); Lymphocyte # 1.08 X10^3/ul (4.0); Lymphocyte % 14.3 % (19-41); Mean Corp Hgb Conc 30.6 g/gl (32-36); Mean Corpuscular Volume 101.1 fL (81-99); Monocyte# 0.37 X10^3/uL; Monocyte% 4.9 % (0-10); Neutrophil # 5.85 X10^3/uL (2.7-7.7); Neutrophil % 77.7 % (47-70); Platelet Count 330 K/mm3 (150-450); RBC Distribution Width SD 56.6 fl (35.1-43.9); Red Blood Count 3.78 M/mm3 (4.2-5.4); White Blood Count 7.5 K/mm3 (4.4-11.0)
[2018-09-04 14:16] LABS: POSITIVE COUNT NO; POSITIVE DIFFERENTIAL NO; POSITIVE MORPHOLOGY NO
[2018-09-04 14:32] LABS: ALB/GLOB Ratio 1.1 RATIO (0.9-2.4); AST(SGOT) 17 U/L (15-37); Alanine Aminotransfer ALT/SGPT 15 U/L (13-56); Albumin, Serum 3.5 g/dL (3.2-5.0); Alkaline Phosphatase 263 U/L (45-117); Anion Gap 8 (5-15); BUN 14 mg/dL (7-18); BUN/Creat Ratio 13.9 RATIO (10-20); CPK Total, Creatine Kinase 30 U/L (26-192); Calcium,Total 9.3 mg/dL (8.5-10.1); Chloride 98 mmol/L (98-107); Creatinine, Serum 1.01 mg/dL (0.55-1.02); EST Glomerular Filtration Rate 61 mL/min (>60); Est Glom Filt Rate - Afr Amer 73 mL/min (>60); Globulin 3.1 g/dL (2.2-4.2); Glucose 346 mg/dL (74-106); Potassium 4.6 mmol/L (3.5-5.1); Protein, Total 6.6 g/dL (6.4-8.2); Sodium Level 135 mmol/L (136-145)
[2018-09-04 14:35] LABS: BNP,B-Type NATRIURETIC PEPTIDE 819.3 pg/mL (0-100)
[2018-09-04 14:41] LABS: D-Dimer Quantitative (DVT/PE) 1.44 FEU/ug/m (0.27-0.49)
== END ==
PROVIDERS: Family Provider Internal Medicine; PCP Internal Medicine; Referring Provider Internal Medicine; Visit Provider Internal Medicine
DX: R06.02 Shortness of breath (principal)
CPT/HCPCS: 80053; 82550; 83880; 84484; 85025; 85379

== ENCOUNTER → 2018-09-04 15:30 | Outpatient (CLI) | payer MEDICARE, SELFPAY ==
[2018-08-29 12:37] VITALS: BMI 33.2
--- NOTE | 2018-09-04 15:34 | CT_ITS ---
STUDY: CTA CHEST REASON FOR EXAM: Female, 53 years old. Chest pain, elevated d-dimer RADIATION DOSAGE (If Supplied By Facility): CTDIvol = ( 29.93 ) mGy, DLP = ( 662.92 ) mGycm TECHNIQUE: The examination was performed with the intravenous administration of 75CC ml of Isovue 370 contrast material. Post-processing of the angiographic images was performed, with multiplanar reformation and 3D reconstruction. Individualized dose optimization techniques were used for this CT. COMPARISON: Previous plain films FINDINGS: Left subclavian pacemaker in satisfactory position, no pneumothorax or mediastinal shift Normal enhancement of the main pulmonary artery and right and left pulmonary arteries. Normal enhancement of the bilateral peripheral pulmonary arteries. There is no demonstrated pulmonary embolism. Normal thoracic aorta and visualized great vessels. There is no demonstrated aortic dissection. There is a pericardial effusion with maximum thickness of 1.32 cm. There are calcified coronary vessels. There are subcentimeter axillary mediastinal lymph nodes. Normal hilar regions. There is peribronchial thickening. The lungs are well expanded. Normal pulmonary parenchyma. Normal pleura. Normal chest wall structures. There are degenerative changes of thoracic spine. Normal visualized upper abdomen. CT/CTA Chest W/WO Contrast IMPRESSION: No demonstrated PE, or thoracic aortic aneurysm or dissection No acute pulmonary process Pericardial effusion Calcified coronary vessels Degenerative bony changes Electronically Signed: Kenn Santos MD at 16:19 EST , Service support ,
--- OUTSIDE RECORDS SUMMARY | 2018-10-21 22:12 | XMS RPT_ITS | Continuity of Care Document ---
:1965 Author Organization [facility] Address [facility] [address] [address] Phone Care Team Providers Name Role Phone Sangeetha Irvin DO Unavailable Janelle CONLEY MD , Alejandro Andrews Unavailable Dr. Meño Conway Unavailable Jah Anthony Unavailable Graciela Reyes Unavailable Unavailable Amelia Cota LPN Unavailable Unavailable Isabella Grigsby Unavailable Unavailable Unavailable Unavailable Problems Name Dates Details Abnormal blood chemistry (R79.9, 790.6) Status: Active Abnormal findings on diagnostic imaging of other specified body structures (R93.8, 793.99) Status: Active Abnormal glucose tolerance test (R73.02, 790.22) Status: Active Abnormal stress test (R94.39, 794.39) Status: Active Abnormal tumor markers (R97.8, 795.89) Status: Active Abnormal urine (R82.90, 791.9) Status: Active Acquired hypothyroidism (E03.9, 244.9) Status: Active Alopecia (L65.9, 704.00) Status: Active Anxiety (F41.9, 300.00) Status: Active Arthritis, rheumatoid (M06.9, 714.0) Status: Active B12 deficiency (E53.8, 266.2) Status: Active BMI 31.0-31.9,adult (Z68.31, V85.31) Status: Active Cardiomyopathy (I42.9, 425.4) Status: Active Carpal tunnel syndrome, bilateral (G56.03, 354.0) Comments: cock up splints Status: Active Cervical radiculopathy (M54.12, 723.4) Comments: getting shots this week Status: Active Congestive Heart Failure (428.0) Status: Active Current nonsmoker (Z78.9, V49.89) Status: Active Depression (F32.9, 311) Status: Active Diabetes mellitus type II, controlled (E11.9, 250.00) Status: Active Diarrhea (R19.7, 787.91) Comments: better now not had. Status: Active DVT of upper extremity (deep vein thrombosis) (I82.629, 453.82) Comments: was started 03/13 on eliquis clot gone Status: Active Elevated liver enzymes (R74.8, 790.5) Comments: better Status: Active Encounter for hepatitis C virus screening test for high risk patient (Z11.59, V73.89) Status: Active Encounter for screening mammogram for breast cancer (Renamed from Encounter for screening mammogram for malignant neoplasm of breast) (Z12.31, V76.12) Status: Active Encounter for screening mammogram for breast cancer (Renamed from Encounter for screening mammogram for malignant neoplasm of breast) (Z12.31, V76.12) Status: Active Encounter for screening mammogram for breast cancer (Renamed from Encounter for screening mammogram for malignant neoplasm of breast) (Z12.31, V76.12) Status: Active Encounter for screening mammogram for breast cancer (Renamed from Encounter for screening mammogram for malignant neoplasm of breast) (Z12.31, V76.12) Status: Active Epigastric pain (R10.13, 789.06) Comments: better now with carafate with PPI. Status: Active Essential hypertension with goal blood pressure less than 130/80 (I10, 401.9) Status: Active Fatigue (R53.83, 780.79) Status: Active Fatigue (R53.83, 780.79) Status: Active Fatty liver (K76.0, 571.8) Comments: risk factor modificaiton Status: Active Fibromyalgia (M79.7, 729.1) Comments: seeing Federica Status: Active Gallstones (574.20) Status: Active Gastritis (K29.70, 535.50) Status: Active Goiter (E04.9, 240.9) Status: Active Headache (R51, 784.0) Status: Active HX, PERSONAL, MALIGNANCY, LYMPHATIC NEC (V10.79) Comments: saw Dr Elise Status: Active Hyponatremia (E87.1, 276.1) Comments: which i believe is secondary to the higher dose of diuretics Status: Active Hypopotassemia (E87.6, 276.8) Status: Active ICD- BIvent Status: Active Lipoma (D17.9, 214.9) Comments: think benign she willmonitor for change and let me know Status: Active Low back pain potentially associated with radiculopathy (M54.5, 724.2) Comments: she using tylenol will get shot if needed from pain management Status: Active [facility] WELLNESS Status: Active [facility] WELL[facility] EXAM Status: Active Mitral valve disorder (I05.9, 424.0) Status: Active Mixed hyperlipidemia (E78.2, 272.2) Comments: chronic stable-continue present regimen Status: Active Nausea (R11.0, 787.02) Comments: discussed take otc prilosec or nexium and if not better then call will owkrup further also has gallstones so may be issue Status: Active Need for prophylactic vaccination and inoculation against influenza (Z23, V04.81) Status: Active Need for prophylactic vaccination and inoculation against influenza (Renamed from Need for immunization against influenza) (Z23, V04.81) Status: Active Need for prophylactic vaccination and inoculation against influenza (Renamed from Need for immunization against influenza) (Z23, V04.81) Status: Active Non-Hodgkin's lymphoma in adult (C85.90, 202.80) Status: Active Nonsmoker (Z78.9, V49.89) Status: Active Nonsmoker (Z78.9, V49.89) Status: Active Obstructive sleep apnea, adult (G47.33, 327.23) Comments: chronic stable-continue present regimen Status: Active Paroxysmal tachycardia (I47.9, 427.2) Status: Active Postmenopausal (Renamed from Postmenopausal status) (Z78.0, V49.81) Status: Active pvcs and tachycardia Status: Active Syncope (R55, 780.2) Status: Active Thyroid nodule (E04.1, 241.0) Comments: x 6/17bx neg left nodule Status: Active Uncontrolled type II diabetes mellitus (E11.65, 250.02) Comments: she will work on mediterranean diet and cutting back sugar Status: Active Unspecified Diagnosis Status: Active Upper respiratory infection (J06.9, 465.9) Status: Active UTI (lower urinary tract infection) (N39.0, 599.0) Status: Active Vitamin D deficiency (E55.9, 268.9) Comments: chronic stable-continue present regimen Status: Active Medications Name Dates Details Accu-Chek Jaimie Plus In Vitro Strip 1 (one) Strip Strip qid for 90 days Quantity: 360 {Strip} Refills: 3 Ordered:28-Jul-2017 Fast DO, Sangeetha AFast DO, Sangeetha A Start : 28-Jul-2017 Active Comments:E11.9 Accu-Chek Softclix Lancets Miscellaneous 1 (one) Misc Misc qid for 90 days Quantity: 360 {Unspecified} Refills: 3 Ordered:28-Jul-2017 Fast DO, Sangeetha AFast DO, Sangeetha A Start : 28-Jul-2017 Active Comments:E11.9 Alcohol Swabs Pad 1 (one) Pad Pad qid for 90 days Quantity: 360 {Pad} Refills: 3 Ordered:28-Jul-2017 Fast DO, Sangeetha AFast DO, Sangeetha A Start : 28-Jul-2017 Active Comments:E11.9 Cephalexin 500 MG Oral Capsule 1 (one) Capsule Capsule tid for 0 days Quantity: 21 {Capsule} Refills: 0 Ordered:19-May-2018 Graciela Reyes Start : 19-May-2018 Active COREG, 6.25MG (Oral Tablet) 1/2 Tablet bid for 0 days Quantity: 30 {Tablet} Refills: 0 Ordered:08-Jan-2014 Fast DO, Sangeetha AFast DO, Sangeetha A Start : 08-Jan-2014 Active Digoxin 125 MCG Oral Tablet 1 (one) Tablet daily for 30 days Quantity: 30 {Tablet} Refills: 3 Ordered:19-May-2018 Fast DO, Sangeetha AFast DO, Sangeetha A Start : 19-May-2018 Active DIGOXIN, 0.125MG (Oral Tablet) 1 tab qd (0.125 MG) Active Effexor XR 150 MG Oral Capsule Extended Release 24 Hour 1 (one) Capsule qd for 30 days Quantity: 30 {Capsule} Refills: 3 Ordered:05-Jun-2018 Fast DO, Sangeetha AFast DO, Sangeetha A Start : 05-Jun-2018 Active Gabapentin 100 MG Oral Capsule 1 (one) Capsule bid for 30 days Quantity: 60 {Capsule} Refills: 3 Ordered:05-Jun-2018 Fast DO, Sangeetha AFast DO, Sangeetha A Start : 05-Jun-2018 Active Haloperidol 1 MG Oral Tablet 1 (one) Tablet am 1/2 pm for 30 days Quantity: 60 {Tablet} Refills: 4 Ordered:21-Jul-2018 Fast DO, Sangeetha AFast DO, Sangeetha A Start : 21-Jul-2018 Active Klor-Con M20 20 MEQ Oral Tablet Extended Release 3 (three) Tablet ER daily for 30 days Quantity: 90 {Tablet} Refills: 3 Ordered:29-Aug-2017 Fast DO, Sangeetha AFast DO, Sangeetha A Start : 29-Aug-2017 Active LamoTRIgine 150 MG Oral Tablet 1 (one) Tablet qhs for 30 days Quantity: 30 {Tablet} Refills: 3 Ordered:07-Jun-2018 Fast DO, Sangeetha AFast DO, Sangeetha A Start : 07-Jun-2018 Active Lasix 40 MG Oral Tablet 1 (one) Tablet daily as directed for 30 days Quantity: 30 {Tablet} Refills: 4 Ordered:19-May-2018 Fast DO, Sangeetha AFast DO, Sangeetha A Start : 19-May-2018 Active MELATONIN, 3MG (Oral Capsule) 1 cap daily (3 MG) Active Mirtazapine 15 MG Oral Tablet 1/2 Tablet qhs for 0 days Quantity: 30 {Tablet} Refills: 0 Ordered:10-Jul-2018 Graciela Reyes Start : 10-Jul-2018 Active Omeprazole 20 MG Oral Capsule Delayed Release 1 (one) Capsule Capsule qam prior to breakfast for 0 days Quantity: 30 {Capsule} Refills: 3 Ordered:17-Jan-2018 Jennifer Rios MD Start : 17-Jan-2018 Active PEN NEEDLES, 31G X 8 MM (Miscellaneous) uad Misc bid for 30 days Quantity: 60 {Misc} Refills: 3 Ordered:15-Apr-2010 Paul Morgan Start : 15-Apr-2010 Active SENOKOT, 8.6MG (Oral Tablet) 1 tab qd (8.6 MG) Active Simvastatin 10 MG Oral Tablet 1 (one) Tablet qod in the evening for 30 days Quantity: 30 {Tablet} Refills: 3 Ordered:05-Jun-2018 Sangeetha Irvin DObud , Sangeetha A Start : 05-Jun-2018 Active Synthroid 75 MCG Oral Tablet 1 (one) Tablet qd and 2 tabs on tuesday for 90 days Quantity: 102 {Tablet} Refills: 3 Ordered:21-Jul-2018 Tavon DAVIS Sangeetha العراقي DO Sangeetha A Start : 21-Jul-2018 Active Vitamin D3 5000 UNIT Oral Capsule 1 (one) Capsule Capsule qod for 0 days Quantity: 30 {Capsule} Refills: 3 Ordered:01-Mar-2017 Sangeetha JAVEDbud Sangeetha A Start : 01-Mar-2017 Active Zofran 4 MG Oral Tablet 1 (one) Tablet Tablet every 8 hours prn nausea vomting for 0 days Quantity: 10 {Tablet} Refills: 0 Ordered:23-Feb-2018 Amelia Cota LPN L Start : 23-Feb-2018 Active AMITIZA, 24MCG (Oral Capsule) 1 Capsule Capsule bid for 0 days Quantity: 32 {Capsule} Refills: 0 Ordered:09-Feb-2016 Elodia Baxter Start : 27-Jul-2013 End : 09-Feb-2016 Inactive Amitriptyline HCl 10 MG Oral Tablet 1-2 Tablet qhs prn for 0 days Quantity: 60 {Tablet} Refills: 3 Ordered:19-May-2018 Long ON AIR HOST, Amelia L Start : 21-Oct-2017 End : 19-May-2018 Inactive Amoxicillin 875 MG Oral Tablet 1 (one) Tablet bid for 10 days Quantity: 20 {Tablet} Refills: 0 Ordered:21-Oct-2017 Sangeetha JAVEDbud Sangeetha A Start : 21-Oct-2017 End : 31-Oct-2017 Inactive AVAPRO, 150MG (Oral Tablet) 1 qd for 0 days Refills: 0 Ordered:02-Dec-2006 Sangeetha TEGANbud DO, Sangeetha A End : 02-Dec-2006 Inactive AVAPRO, 300MG (Oral Tablet) 1 (one) Tablet Daily for 0 days Quantity: 30 {Tablet} Refills: 3 Ordered:11-Sep-2006 Fast DO, Sangeetha AFast DO, Sangeetha A Start : 06-Jun-2006 End : 02-Dec-2006 Inactive BYETTA 10 MCG PEN, 10MCG/0.04ML (Subcutaneous Solution) 1 (one) Solution bid for 0 days Quantity: 1 {pen} Refills: 3 Ordered:04-Jun-2011 Ingrid Newton LPN Start : 28-Sep-2010 End : 04-Jun-2011 Inactive BYSTOLIC, 5MG (Oral Tablet) 1 (one) Tablet qd for 0 days Quantity: 30 {Tablet} Refills: 3 Ordered:10-Oct-2008 Isabella Grigsby Start : 10-Oct-2008 End : 25-Oct-2008 Inactive Carafate 1 GM Oral Tablet 1 (one) Tablet Tablet hour before meals and before bed for 0 days Quantity: 30 {Tablet} Refills: 0 Ordered:19-May-2018 Amelia Cota LPN Start : 23-Feb-2018 End : 19-May-2018 Inactive CEFADROXIL, 1GM (Oral Tablet) 1 (one) Tablet q12hrs for 10 days Quantity: 20 {Tablet} Refills: 0 Ordered:16-Apr-2014 Tatum SAUCEDO Hermelinda Start : 16-Apr-2014 End : 26-Apr-2014 Inactive CELEXA, 40MG (Oral Tablet) 1 Tablet qd for 30 days Quantity: 30 {Tablet} Refills: 0 Ordered:05-Jul-2011 Delisa Melendez LPN Start : 05-Jul-2011 End : 04-Aug-2011 Inactive Cipro 500 MG Oral Tablet 1 (one) Tablet bid for 7 days Quantity: 14 {Tablet} Refills: 0 Ordered:09-Jun-2018 Fast DO, Sangeetha AFast DO, Sangeetha A Start : 09-Jun-2018 End : 16-Jun-2018 Inactive CIPRO, 250MG (Oral Tablet) 1 (one) Tablet bid for 3 days Quantity: 6 {Tablet} Refills: 0 Ordered:17-Dec-2008 Tatum SAUCEDO Hermelinda Start : 17-Dec-2008 End : 23-Dec-2008 Inactive CIPROFLOXACIN HCL, 500MG (Oral Tablet) 1 Tablet bid for 0 days Quantity: 28 {Tablet} Refills: 0 Ordered:05-Jul-2011 Isabella Grigsby Start : 04-Jun-2011 End : 05-Jul-2011 Inactive ClonazePAM 1 MG Oral Tablet 1 tab Tablet q hs for 30 days Quantity: 30 {Tablet} Refills: 1 Ordered:19-May-2018 Cipriano ALBRIGHT Amelia Marquez Start : 25-Jan-2018 End : 19-May-2018 Inactive Eliquis 5 MG Oral Tablet 1 (one) Tablet bid for 30 days Quantity: 60 {Tablet} Refills: 0 Ordered:05-Jun-2018 DO, Sangeetha AFast DO, Sangeetha A Start : 05-Jun-2018 End : 05-Jul-2018 Inactive ERGOCALCIFEROL, 46978YAKL (Oral Capsule) 1 (one) Capsule Capsule twice weekly for 0 days Quantity: 24 {QS} Refills: 0 Ordered:09-Feb-2016 Elodia Baxter Start : 15-Apr-2015 End : 09-Feb-2016 Inactive FENTANYL, 25MCG/HR (Transdermal Patch 72 Hour) 1 Patch 72HR q 72 for 10 days Quantity: 10 {Patch_72HR} Refills: 0 Ordered:05-Jul-2011 Isabella Grigsby Start : 05-Jul-2011 End : 15-Jul-2011 Inactive FOLIC ACID, 1MG (Oral Tablet) bid (1 MG) Inactive Comments:Dr. méndez FUROSEMIDE, 40MG (Oral Tablet) 1 tab daily (40 MG) Inactive Comments:TAD Glucophage 500 MG Oral Tablet 2 (two) Tablet bid for 90 days Quantity: 360 {Tablet} Refills: 3 Ordered:19-May-2018 Amelia Cota LPN Start : 18-Jan-2018 End : 19-May-2018 Inactive LaMICtal 200 MG Oral Tablet 1 Tablet q hs for 30 days Quantity: 30 {Tablet} Refills: 0 Ordered:19-May-2018 Amelia Cota LPN Start : 19-Jan-2013 End : 19-May-2018 Inactive LAMOTRIGINE, 100MG (Oral Tablet) 1 Tablet qhs for 30 days Quantity: 30 {Tablet} Refills: 0 Ordered:05-Jul-2011 Delisa Melendez LPN Start : 05-Jul-2011 End : 04-Aug-2011 Inactive LEUCOVORIN CALCIUM, 10MG (Oral Tablet) 1 tab once a week (10 MG) Inactive LEVAQUIN, 500MG (Oral Tablet) 1 Tablet daily for 10 days Quantity: 10 {Tablet} Refills: 0 Ordered:29-Sep-2012 DO, Sangeetha AFast DO, Sangeetha A Start : 29-Sep-2012 End : 09-Oct-2012 Inactive LEXAPRO, 10MG (Oral Tablet) 1 qd for 0 days Refills: 0 Ordered:02-Dec-2006 Tavon DAVIS, Sangeetha العراقي DO, Sangeetha Diaz End : 02-Dec-2006 Inactive Lisinopril 5 MG Oral Tablet 1/2 Tablet qd for 30 days Quantity: 15 {Tablet} Refills: 0 Ordered:19-May-2018 Ciprinao ALBRIGHT Amelia Marquez Start : 24-Apr-2013 End : 19-May-2018 Inactive LISINOPRIL, 2.5MG (Oral Tablet) 1 Tablet qd for 30 days Refills: 0 Ordered:28-Nov-2009 Isabella Grigsby Start : 28-Nov-2009 End : 28-Dec-2009 Inactive LISINOPRIL, 5MG (Oral Tablet) 1 Tablet qd for 30 days Quantity: 30 {Tablet} Refills: 0 Ordered:05-Jul-2011 Delisa Melendez LPN Start : 05-Jul-2011 End : 04-Aug-2011 Inactive LORAZEPAM, 0.5MG (Oral Tablet) 1 tab qm, noon and 2 q hs for 0 days Refills: 0 Ordered:13-May-2010 Isabella GrigsbyInactive LYRICA, 50MG (Oral Capsule) 1 Capsule bid for 30 days Quantity: 60 {Capsule} Refills: 0 Ordered:05-Jul-2011 Delisa Melendez LPN Start : 05-Jul-2011 End : 04-Aug-2011 Inactive LYRICA, 50MG (Oral Capsule) 1 bid (50 MG) Inactive MACROBID, 100MG (Oral Capsule) 1 (one) Capsule bid for 10 days Quantity: 20 {Capsule} Refills: 0 Ordered:18-Apr-2015 Amelia Cota LPN Start : 18-Apr-2015 End : 28-Apr-2015 Inactive Comments:instead of the pcn called in earlier dt mtx interaction MACRODANTIN, 100MG (Oral Capsule) 1 Capsule bid for 10 days Quantity: 20 {Capsule} Refills: 0 Ordered:23-Jul-2011 Angelina Winn CNP Start : 23-Jul-2011 End : 02-Aug-2011 Inactive MAXITROL, 3.5-38543-6.1 (Ophthalmic Ointment) apply to eye lids as directed q hs for 0 days Refills: 0 Ordered:26-Aug-2011 ALVIN Allen End : 26-Aug-2011 Inactive Methotrexate 2.5 MG Oral Tablet 5 tabs once a week (2.5 MG) Inactive Comments:Dr. méndez Methotrexate Sodium .5mL injection once a week Inactive Comments:Dr. Méndez MOBIC, 7.5MG (Oral Tablet) 1 - 2 tabs qd, prn (7.5 MG) Inactive NEURONTIN, 100MG (Oral Capsule) 1 (one) Capsule tid for 0 days Quantity: 270 {Capsule} Refills: 3 Ordered:13-May-2010 Isabella Grigsby Start : 21-Apr-2009 Inactive Comments:work up dose- by 100mg three times a day every week- so 100mg tid for 1 week then 200mg tid for one week then 300mg tid NEURONTIN, 400MG (Oral Capsule) 1 (one) Capsule tid for 0 days Quantity: 270 {Capsule} Refills: 3 Ordered:04-Jun-2011 Ingrid Newton LPN Start : 04-Dec-2010 End : 04-Jun-2011 Inactive NITROFURANTOIN MACROCRYSTAL, 50MG (Oral Capsule) 1 cap q hs (50 MG) Inactive Comments:Dr. Hankins NYSTATIN, [id number]/ML (Mouth/Throat Suspension) 5cc Suspension 5 times daily for 10days. for 10 days Refills: 0 Ordered:18-May-2010 Fast DO, Sangeetha AFast DO, Sangeetha A Start : 18-May-2010 End : 28-May-2010 Inactive Comments:1 bottle PLAQUENIL, 200MG (Oral Tablet) 1 tab bid for 0 days Refills: 0 Ordered:22-Jun-2013 Delisa Melendez LPN Start : 12-May-2012 End : 22-Jun-2013 Inactive PRISTIQ, 100MG (Oral Tablet Extended Release 24 Hour) 1 tab Tablet ER 24HR qd for 30 days Quantity: 30 {Tablet_ER_24HR} Refills: 1 Ordered:04-Jun-2011 Ingrid Newton LPN Start : 22-Jan-2011 End : 04-Jun-2011 Inactive PROMETHAZINE HCL, 25MG (Oral Tablet) 1 Tablet every 8 horus prn for 0 days Quantity: 20 {Tablet} Refills: 0 Ordered:04-Jun-2013 Delisa Melendez LPN Start : 15-Feb-2013 End : 04-Jun-2013 Inactive PROVENTIL HFA, 108 (90 Base)MCG/ACT (Inhalation Aerosol Solution) 1-2 Puff(s) every 6 hours prn for 0 days Quantity: 1 {Aerosol_Soln} Refills: 0 Ordered:04-Oct-2011 Isabella Grigsby Start : 26-Aug-2011 End : 04-Oct-2011 Inactive PYRIDIUM, 100MG (Oral Tablet) 1 Tablet tid for 2 days Quantity: 6 {Tablet} Refills: 0 Ordered:04-Jun-2013 Angelina Winn CNP Start : 04-Jun-2013 End : 06-Jun-2013 Inactive SAVELLA, 25MG (Oral Tablet) 1 tab bid (25 MG) Inactive SEROQUEL XR, 200MG (Oral Tablet Extended Release 24 Hour) 1 Tablet ER 24HR qd for 30 days Refills: 0 Ordered:13-May-2010 Isabella Grigsby Start : 13-May-2010 End : 12-Jun-2010 Inactive SEROQUEL XR, 200MG (Oral Tablet Extended Release 24 Hour) 1 tab Tablet ER 24HR q hs for 0 days Quantity: 30 {Tablet_ER_24HR} Refills: 1 Ordered:26-Aug-2011 ALVIN Allen Start : 22-Jan-2011 End : 26-Aug-2011 Inactive Spironolactone 25 MG Oral Tablet 1/2 (one half) Tablet daily for 30 days Refills: 0 Ordered:19-May-2018 Amelia Cota LPN Start : 27-Jul-2013 End : 19-May-2018 Inactive TAMIFLU, 75MG (Oral Capsule) 1 Capsule bid for 0 days Quantity: 10 {Capsule} Refills: 0 Ordered:04-Jun-2013 Delisa Melendez LPN Start : 15-Feb-2013 End : 04-Jun-2013 Inactive TESSALON PERLES, 100MG (Oral Capsule) 1 Capsule tid prn for 10 days Quantity: 30 {Capsule} Refills: 0 Ordered:22-Feb-2013 Jennifer Rios MD Start : 22-Feb-2013 End : 04-Mar-2013 Inactive Tolnaftate 1 % External Cream 1 (one) Application bid for 30 days Quantity: 1 {Applicator} Refills: 0 Ordered:26-Jun-2018 Fast DO, Sangeetha AFast DO, Sangeetha A Start : 19-May-2018 End : 18-Jun-2018 Inactive TRAZODONE HCL, 50MG (Oral Tablet) 1/2 qhs / HS for 0 days Refills: 0 Ordered:02-Dec-2006 Fast DO, Sangeetha AFast DO, Sangeetha A End : 02-Dec-2006 Inactive Venlafaxine HCl ER 150 MG Oral Capsule Extended Release 24 Hour 1 capsule daily (150 MG) Inactive ZITHROMAX Z-SIDDHARTH, 250MG (Oral Tablet) 1 Tablet uad for 0 days Quantity: 1 {Package(s)} Refills: 0 Ordered:04-Jun-2013 Ricardo Melendez LPNsie Start : 22-Feb-2013 End : 04-Jun-2013 Inactive ACYCLOVIR, 200MG (PO Tab) 1 tab bid for 0 days Refills: 0 Ordered:29-May-2008 Isabella Grigsby End : 29-May-2008 Discontinued AMBIEN, 10MG (Oral Tablet) 1 (one) Tablet Each evening as needed for 0 days Refills: 0 Ordered:02-Dec-2006 Isabella Grigsby Start : 02-Dec-2006 End : 20-Feb-2008 Discontinued Comments:Medication taken as needed. BD U/F III MINI PEN NEEDLE, 31G X 8 MM (Miscellaneous) 1 UAD for 0 days Refills: 0 Ordered:15-Apr-2010 Isabella Grigsby End : 15-Apr-2010 Discontinued Comments:This order discontinued per [facility]. BYETTA 5 MCG PEN, 5MCG/0.02ML (Subcutaneous Solution) 1 (one) Solution bid for 0 days Quantity: 1 {Solution} Refills: 3 Ordered:26-Jun-2010 Fast DO, Sangeetha AFast DO, Sangeetha A Start : 26-Jun-2010 End : 26-Jun-2010 Discontinued CELEXA, 20MG (Oral Tablet) 1 (one) Tablet qd for 0 days Quantity: 90 {Tablet} Refills: 3 Ordered:09-Sep-2008 Fast DO, Sangeetha AFast DO, Sangeetha A Start : 09-Sep-2008 End : 09-Sep-2008 Discontinued CELEXA, 40MG (Oral Tablet) 1 qd for 0 days Refills: 0 Ordered:10-Nov-2015 Paul Morgan Start : 12-May-2012 End : 10-Nov-2015 Discontinued COLACE, 100MG (Oral Capsule) 1 Capsule daily for 0 days Quantity: 30 {Capsule} Refills: 0 Ordered:27-Jul-2013 Fast DO, Sangeetha AFast DO, Sangeetha A Start : 27-Jul-2013 End : 27-Jul-2013 Discontinued EFFEXOR XR, 75MG (Oral Capsule Extended Release 24 Hour) 1 (one) Capsule ER 24HR qd for 0 days Quantity: 90 {Capsule_ER_24HR} Refills: 3 Ordered:09-Sep-2008 Fast DO, Sangeetha AFast DO, Sangeetha A Start : 09-Sep-2008 End : 09-Sep-2008 Discontinued FENTANYL, 25MCG/HR (Transdermal Patch 72 Hour) 1 q 72 hours (25 MCG/HR) End : 24-Jan-2012 Discontinued Januvia 100 MG Oral Tablet 1 (one) Tablet Tablet qd for 0 days Quantity: 30 {Tablet} Refills: 2 Ordered:01-Mar-2017 Isabella Grigsby Start : 09-Feb-2016 End : 01-Mar-2017 Discontinued K-DUR, 20MEQ (Oral Tablet Extended Release) 1 tab Tablet ER qd for 0 days Quantity: 90 {Tablet_ER} Refills: 3 Ordered:15-Aug-2006 Isabella Grigsby Start : 15-Aug-2006 End : 22-Apr-2008 Discontinued Comments:sangita hunt LOTENSIN HCT, 10-12.5MG (Oral Tablet) 1 Tablet qd for 0 days Quantity: 90 {Tablet} Refills: 3 Ordered:15-Aug-2006 Maria Teresa Pastor RN Start : 15-Aug-2006 End : 03-Oct-2006 Discontinued LOTENSIN, 20MG (Oral Tablet) 1 Tablet QD for 0 days Quantity: 90 {Tablet} Refills: 3 Ordered:03-Oct-2006 Isabella Grigsby Start : 03-Oct-2006 End : 19-Jan-2008 Discontinued Magnesium Oxide 400 MG Oral Capsule 1 cap daily (400 MG) End : 01-Mar-2017 Discontinued MELOXICAM, 7.5MG (Oral Tablet) qd (7.5 MG) End : 31-Jan-2015 Discontinued Comments:Dr. conway OMEPRAZOLE, 20MG (Oral Tablet Delayed Release) [address] mccollum 1/2 hour prior to eating for 0 days Quantity: 30 {Tablet_DR} Refills: 3 Ordered:24-Apr-2013 Sangeetha Irvin DO DO, Sangeetha A Start : 24-Apr-2013 End : 24-Apr-2013 Discontinued ONGLYZA, 5MG (Oral Tablet) 1 Tablet qd for 0 days Quantity: 30 {Tablet} Refills: 3 Ordered:24-Apr-2013 Sangeetha Irvin DO DO, Sangeetha A Start : 24-Apr-2013 End : 24-Apr-2013 Discontinued PLAQUENIL, 200MG (Oral Tablet) 1 tab bid (200 MG) End : 31-Jan-2015 Discontinued SEROQUEL, 100MG (Oral Tablet) 1 tab q hs for 0 days Refills: 0 Ordered:17-Dec-2008 Michelle Dixon End : 17-Dec-2008 Discontinued TOPROL XL, 25MG (Oral Tablet Extended Release 24 Hour) 1 (one) Tablet ER 24HR Daily for 0 days Refills: 0 Ordered:02-Dec-2006 Isabella Grigsby Start : 02-Dec-2006 End : 19-Jan-2008 Discontinued TRAZODONE HCL, 100MG (Oral Tablet) 1/2 to 1 Tablet q hs for 0 days Quantity: 30 {Tablet} Refills: 0 Ordered:25-Aug-2012 Sangeetha Irvin DO, DO, Sangeetha A Start : 25-Aug-2012 End : 25-Aug-2012 Discontinued Comments:Dr. Clark VICODIN, 5-500MG (Oral Tablet) 1 (one) Tablet q 6hrs, prn for 0 days Quantity: 30 {Tablet} Refills: 0 Ordered:19-May-2018 Long ON AIR HOST, Amelia L Start : 12-May-2012 End : 19-May-2018 Discontinued Comments:This order discontinued per [facility]. ZOFRAN ODT, 4MG (Oral Tablet Dispersible) qd prn nausea (4 MG) End : 08-Aug-2015 Discontinued Comments:[facility] Allergies and Adverse Reactions Name Dates Details aleve (Allergy) Status: Active Amitriptyline (Allergy) Status: Active Comments: nightmares FentaNYL *CHEMICALS* (Allergy) Status: Active Comments: local burning reaction Percocet *ANALGESICS - OPIOID* (Allergy) Status: Active Comments: nausea and vomiting Sulfa Drugs (Allergy) Status: Active Past Medical History Name Dates Details Abnormal lung function test (R94.2, 794.2) Status: Inactive as of 31-May-2018 Abnormal TSH (R79.89, 790.6) Status: Inactive as of 26-Jun-2010 Acute bronchitis (J20.9, 466.0) Status: Resolved as of 24-Apr-2013 Acute pharyngitis (J02.9, 462) Status: Resolved as of 26-Jun-2010 Anemia (D64.9, 285.9) Status: Resolved as of 24-Apr-2013 BMI 30.0-30.9,adult (Z68.30, V85.30) Status: Inactive as of 21-Jul-2018 BMI 33.0-33.9,adult (Z68.33, V85.33) Status: Inactive as of 21-Oct-2017 BMI 34.0-34.9,adult (Z68.34, V85.34) Status: Inactive as of 21-Jul-2018 BMI 36.0-36.9,adult (Z68.36, V85.36) Status: Inactive as of 21-Oct-2017 BMI 39.0-39.9,adult (Z68.39, V85.39) Status: Inactive as of 21-Oct-2017 BMI 45.0-49.9, adult (Z68.42, V85.42) Status: Inactive as of 21-Oct-2017 Bronchitis (J40, 490) Status: Resolved as of 04-Oct-2011 Cellulitis (L03.90, 682.9) Status: Resolved as of 21-Jul-2018 Cellulitis (L03.90, 682.9) Status: Resolved as of 05-Jul-2014 Constipation (K59.00, 564.00) Status: Resolved as of 14-Oct-2014 Cystitis, acute (N30.00, 595.0) Status: Resolved as of 24-Apr-2013 Dehydration (E86.0, 276.51) Comments: hold water pills Status: Resolved as of 16-Feb-2013 Dizziness and giddiness (R42, 780.4) Comments: see if cutting back on bp meds helps Status: Resolved as of 14-Oct-2014 Dysphagia (R13.10, 787.20) Status: Inactive as of 31-May-2018 Dysuria (R30.0, 788.1) 03-May-2011 Comments: UTI. had few days. get these every 6 weeks. mother see edvin Status: Resolved as of 08-Jan-2014 Elevated LFTs (R94.5, 790.6) Status: Resolved as of 24-Apr-2013 Epigastric Pain (R10.13, 789.06) Status: Resolved as of 24-Apr-2013 Fatigue (R53.83, 780.79) Status: Inactive as of 17-Jan-2018 Fever (R50.9, 780.60) Status: Resolved as of 24-Apr-2013 Hypotension (I95.9, 458.9) Status: Resolved as of 05-Jul-2014 Influenza (J11.1, 487.1) Comments: on tamiflu and slowly getting better. told if signs and symptoms of infection call Status: Resolved as of 24-Apr-2013 Leukocytes in urine (R82.99, 791.7) Status: Inactive as of 17-Jan-2018 Pain, eye, right (H57.11, 379.91) Status: Resolved as of 05-Jul-2014 Palpitations (R00.2, 785.1) Status: Inactive as of 31-May-2018 possible atrial septal defect- get TERESE- discussed with pt in detail Status: Resolved as of 20-Feb-2008 screen Status: Inactive as of 24-Apr-2013 screening Status: Inactive as of 07-Oct-2010 screening Status: Inactive as of 24-Apr-2013 screening Status: Inactive as of 24-Apr-2013 screening Status: Inactive as of 14-Oct-2014 SOB (shortness of breath) on exertion (R06.02, 786.05) Status: Resolved as of 14-Oct-2014 Tension headache (G44.209, 307.81) Status: Inactive as of 31-May-2018 Thyromegaly (E04.9, 240.9) Status: Inactive as of 23-Apr-2008 Unspecified Diagnosis Status: Inactive as of 24-Apr-2013 Unspecified Diagnosis Status: Inactive as of 14-Oct-2014 Unspecified Diagnosis Status: Inactive as of 24-Apr-2013 Unspecified Diagnosis Status: Inactive as of 24-Apr-2013 Unspecified Diagnosis Status: Inactive as of 24-Apr-2013 Unspecified Diagnosis Status: Inactive as of 08-Jan-2014 Vomiting (R11.10, 787.03) Status: Resolved as of 24-Apr-2013 Procedures Procedure Dates Details bilateral cataract surgery 10/12 Completed Cholecystectomy Completed Comments: 2014 D&C Completed Gallbladder Surgery - Laparoscopic Completed ICD- BIventricular Completed Date Value Details 14-Jul-2018 Chest PA and Lateral Result: Comments: See Note; NOTES: [facility] Imaging Services [address] [place] [address] Chest PA and Lateral MR#: [id number] Acct: [id number] Name: IFEOMA ASHRAF Rep #: [id number] : 1965 F 53 From: Dimitris Valderrama DO PCP: Sangeetha Irvin DO Status: REG CLI Study: Chest PA and Lateral Date of Exam: 07/14/18 Exam# [id number] Ordering Dr: Oscar Todd 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 Shortness of breath. TECHNIQUE: PA and lateral views of the chest. # of Images: 2 COMPARISON: April 06, 2018. FINDINGS: The lungs are hypoexpanded. There is no new mass or infiltrate. There is no demonstrated pleural abnormality. There is mild cardiac enlargement. Stable cardiac pacemaker/ICD. Normal mediastinum and kari. Normal visualized pulmonary arteries. Normal visualized aortic arch and descending thoracic aorta. There is an increased kyphosis of the thoracic spine mild degenerative changes.. There is degenerative osteoarthritis of the bilateral shoulders. There is no demonstrated abnormality of the visualized soft tissue structures of the upper abdomen. RAD/Chest PA and Lateral IMPRESSION: Cardiomegaly with cardiac pacemaker. There is no acute pulmonary disease or interval change. Electronically Signed: Dimitris Valderrama DO at 8:47 EDT Tel [phone], Service support , CC: NUNU Todd; Sangeetha Irvin DO Armorer Technician: Signed 10-Jun-2018 Pacemaker Check Result: Comments: See Note; NOTES: [facility] [address] [place] [address] Pacemaker Check Date of Service: 06/09/18 09 MR#: [id number] Acct: [id number] Name: IFEOMA ASHRAF Rep #: [id number] : 1965 From: Danica Pickering Age/Sex: 53/F Location: [facility] Status: Signed Billing Codes ICD Device Billing: ICD Dev Prog Eval, Single 06/09/18 09 <Elec tronically signed by Danica Pickering > Date Danica Pickering 06/10/18 1406<Electronically signed by Boone Ch MD> Cosigner Signat ure: Date (if applicable) Boone Ch MD CC: 08-Jun-2018 Cardiology Visit Report Result: Comments: See Note; NOTES: [facility] [address] [place] [address] OFFICE VISIT Date of Service: 05/31/18 MR#: [id number] Acct: [id number] Name: IFEOMA ASHRAF Rep #: [id number] : 1965 Provider: NUNU Todd Age/Sex: 53/F Location: [facility] Status: Signed with Addenda ADDENDUM by NUNU Todd on 06/01/18 at 0746 Addendum entered and electronic ally signed by LUPE Black 06/01/18 07:46: Patient's outside records from [facility] admission from 04/07/2018 to 04/27/2018 were reviewed. These records are limited. It appears she underwent a neurological evaluation. She underwent an EEG monitoring, which was negative for seizures and started on Keppra for 7 days for seizure prophylaxis. She underwent an echocardiogram on 8. Her left atrium was noted to be moderately dilated. Right ventricle was normal size and systolic function. Mitral valve showed moderate mitral valve regurgitation. Tricuspid valve showed mild tricusp id valve regurgitation with an RVSP of 43 mmHg, moderate pulmonary hypertension. Right atrial pressure of 15 mmHg. Ejection fraction was noted to be 25 30% with normal left ventricular wall thickness an d stage III to stage IV diastolic dysfunction. Her EKG completed on 04/27/2018 showed normal sinus rhythm nonspecific intraventricular conduction delay at a rate of 79 bpm. She was treated for acute encep halopathy. She underwent multiple CT scans to evaluate for any progression of subdural hematoma. She was ultimately discharged home with requested follow-up with [facility] neurology or local neurolo gist in approximately 6 weeks. Assessment AND Plan 1. Cardiomyopathy in other diseases classified elsewhere I43 EF is 15% LUPE Hawk Her echocardiogram in February 2018 showed moderately dil ated left ventricle and ejection fraction 15%. It also showed stage III diastolic dysfunction. Her shortness of breath is improved since adding Lasix at last office visit. However, she does still have s ome shortness of breath at rest and with exertion that fluctuates. At this time we will continue to monitor. She was instructed to contact office if symptoms worsen for further consideration of laborato ry work and diuretic adjustment if indicated. 2. Presence of implantable cardioverter- defibrillator (ICD) Z95.810 Generator change 11/13 @ [facility] LUPE Chapman Pacemaker check in February 2018 showed no VT/VF episodes since October 2017. She does not have a routine follow-up scheduled. This will be arranged for her. 3. Nonrheumatic mitral (valve) insufficiency I34.0 LUPE Hawk Her echocardiogram in February 2018 showed moderately severe mitral valve insufficiency. This may be contributing to her shortness of breath on exertion. At this time we will continue to monitor. She was again instructed to contact office if symptoms change and/or worsen. 4. Demand ischemia I24.8 LUPE Hawk Her troponin I was elevated in February 2018. It was believed this was related to demand rather than obstructive coronary artery disease. Patient denies any chest pain, left arm, jaw, or neck pain. She has completed physical therapy without incident and is hoping to continue to exer cise on her own regularly. At this time we will continue to monitor closely. 5. Acute deep vein thrombosis (DVT) of brachial vein of left upper extremity I82.622 Plan - LUPE Black This is being followed by primary care physician. At this time she will continue with factor Xa inhibitor. 6. Anemia, unspecified type D64.9 Plan - LUPE Black Her most recent hemoglobin on 05/25/18 was 11 g/dl . At this time we will continue to follow without any medication adjustments. Plan Detail Other Medications Discontinued: Additional Comments - LUPE Black Thank you for allowing us to participa te in the patients plan of care, if you have any questions please do not hesitate to call. This note was generated using a voice recognition system and there may be incorrect words, spelling or punctua tion that were not noted when reviewing the office note prior to saving. 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 She has a history of non-ischemic cardiomyopathy with EF of 15% noted in February 2018, AICD, diabetes mellitus type 2, morbid obesity, history of diffuse B-cell lymphoma, pulmonary hypertension, stefani ral regurgitation and tricuspid regurgitation. She presented [facility] on March 08, 2018 after being found unresponsive in her bathroom. During this hospitalization she was found to have an acute left axillary and left brachial vein DVT and was started on Eliquis. She presented to [facility] emergency department in March 2018 for altered mental status. Her CT scan prior to ER visit showed possible hygroma versus subacute resolving subdural hematoma. She was transferred to [facility] for further evaluation. These records are not available for review ish powers. Pt. denies chest, arm, jaw, or neck discomfort. She has completed PT and is hoping to continue with Silver Sneakers. Pt. denies symptoms of palpitations, lightheadedness, dizziness, near syncope, or syncopal episodes. Pt. denies edema or claudication issues. Pt. denies orthopnea, PND, blood in urine, blood in stool, myalgia, or unexplainable fatigue. She states having a general sense of weaknes s. Patient states feeling SOB with activity and at rest that fluctuates from day to day. She states her edema is improving since the addition of Lasix at last office visit. Intake Vital Signs05/31/18 H eight 5 ft 5 in 05/31/18 Weight: 192 lb 05/31/18 Body Mass Index (BMI) 31.9 05/31/18 Blood Pressure 92/58 05/31/18 Respiratory Rate 20 05/31/18 Pulse Rate 100 Intake Visit Reasons[facility] to [facility] to [place] Allergies amitriptyline Adverse Reaction (Severe, Verified 05/31/18 11:04) Nightmares naproxen sodium [From Aleve] Adverse Reaction (Severe, Verified 05/31/18 11:04) Swelling Sulfa (Sulfon amide Antibiotics) Adverse Reaction (Intermediate, Verified 05/31/18 11:04) Rash Latex, Natural Rubber Adverse Reaction (Mild, Verified 05/31/18 11:04) Other Medications Digoxin 125 mcg PO DAILY 02/24 11/13 [History Confirmed 05/31/18] Folic Acid 1 mg PO BIDCM 03/07/18 [History Confirmed 05/31/18] Lamotrigine [Lamictal] 200 mg PO QHS 03/07/18 [History Confirmed 05/31/18] Omeprazole [Prilosec] 20 mg PO DAILY 03/07/18 [History Confirmed 05/31/18] Ondansetron HCl [Zofran] 4 mg PO Q8H PRN PRN 03/07/18 [History Confirmed 05/31/18] Simvastatin [Zocor] 10 mg PO QHS 03/07/18 [History Confirmed 05/31/18] Api xaban [Eliquis] 5 mg PO BID 04/06/18 [History Confirmed 05/31/18] Carvedilol [Coreg (Beta Stephanie)] 3.125 mg PO BID 04/06/18 [History Confirmed 05/31/18] Levothyroxine [Synthroid] 75 mcg PO DAILY [History Confirmed 05/31/18] furosemide 40 mg tablet 40 mg PO QDAY 04/10/18 [History Confirmed 05/31/18] sennosides 8.6 mg tablet 8.6 mg PO QDAY PRN tab 04/10/18 [History Confirmed 05/31/18] Handicap Placard #1 ea 05/17/18 [Rx Confirmed 05/31/18] gabapentin 100 mg capsule 100 mg PO QHS cap 05/31/18 [History Confirmed 05/31/18] haloperidol 1 mg tablet 1 mg PO BID 05/31/18 [History Confirmed 05/31/18 ] melatonin 3 mg tablet 9 mg PO QHS tab 05/31/18 [History] mirtazapine 15 mg tablet 15 mg PO DAILY #30 tab 05/31/18 [Rx] potassium chloride ER 20 mEq tablet,extended release(part/cryst) 20 meq PO DAILY #30 tab 05/31/18 [Rx] [facility] Medical History Nonrheumatic mitral (valve) insufficiency (Chronic) Non-rheumatic tricuspid valve insufficiency (Chronic) His tory of non-Hodgkin's lymphoma (Resolved) Anemia (Chronic) Deep vein thrombosis (DVT) of brachial vein of left upper extremity (Resolved) Cardiogenic shock (Resolved) Pulmonary hypertension (Chronic) Ty pe 2 diabetes mellitus without complications (Chronic) Cardiomyopathy in other diseases classified elsewhere (Chronic) Shortness of breath (Chronic) Diffuse large B-cell lymphoma (Chronic) Bilateral car act surgery (Acute) Decomp laminectomy to remove T6-7 mass (Acute) Depression (Acute) Fibromyalgia (Acute) Heel spur surgery (Acute) History of hysteroscopy (Acute) Left thyroid aspiration (Acute) Repla cement of generator for debrillator (Acute) Sleep apnea (Acute) Thyroid nodule (Acute) Surgical History Presence of implantable cardioverter-defibrillato r (ICD) (Chronic 11/10/17) History of cholecystectomy (Acute) History of stem cell transplant (Acute) Family History Father CVA (cerebral vascular acciden t) Diabetes Hypertension Mother Hypertension Brother Diabetes Hypertension Social History Smoking Status: Unknown if ever smoked ROS Const Const: Positive for weakness; negative for fatigue, diff iculty sleeping, frequent falls, excessive sweating or headache(s) Eyes Eyes: Negative for loss of peripheral vision, transient loss of vision, blurry vision, tunnel vision or double vision ENT ENT: Neg ative for headache(s), dizziness, Nosebleed/epistaxis or balance problems Cardio Chest Pain: No Palpitations: No Edema: None Muscle aches with walking: None Resp Respiratory: Positive for SOB with activ ity and SOB at rest (Occasional SOB at rest); negative for SOB orthopnea\SOB lying down, paroxysmal nocturnal dyspnea or Cough GI GI: Negative nausea, heartburn, black,tarry stools or vomiting : Ne gative for hematuria Musc Musc: Negative for balance problems, muscle aches/ myalgia, muscle weakness or joint pain Skin Skin: Negative non-healing lesions, unusual bruising or rash Neuro Neuro: Positiv e for weakness; negative for frequent falls, headache(s), blurry vision, double vision, dizziness, lightheadedness, orthostatic symptoms, near syncope, syncope or lack of coordination Aniceto Hematologic/L ymphatic: Negative for easy bruising or easy bleeding Endo Endo: Negative for fatigue, excessive sweating or increased thirst/drinking Psych Psych: Negative for anxiety or depression Allergy Allergy/Imm unology: Negative for hives, Negative for rash Cardiology Exam Const Appearance: cooperative, healthy appearing, well developed, well groomed and no acute distress Nutritional Appearance: well nourish ed and overweight Orientation: alert, awake and oriented x3 Head Head: normal to inspection, normocephalic and atraumatic Ears: hearing grossly normal bilaterally and external ears normal Nose: external nose normal, nares normal Face and Sinus: face symmetric Mouth: oral mucosae normal, tongue normal and moist mucous membranes Teeth and gingiva: dentition normal Eyes General: appearance normal, both e yes and all related structures Eyelids: eyelids normal Conjunctivae: conjunctivae normal Pupils: PERRL, normal by confrontation and accommodation normal EOM: EOM intact bilaterally Neck Neck: normal vis ual inspection, trachea midline and no JVD JVD: +5 Carotids: normal carotid upstroke and bounding pulses Chest Chest inspection: normal inspection of the chest, symmetric chest movement and normal respi ratory effort Auscultation: Bilateral: Clear to Auscultation Cardio Palpation: normal PMI Rate: regular rate Rhythm: regular rhythm Heart sounds: S1 normal, S2 normal and normal, physiologic split S2; n egative rub, gallop or murmur GI GI: normal to inspection and soft Neuro General: alert, awake, oriented x3, no focal sensory deficit, gait normal and moves all extremities Skin Skin: no rashes or lesio ns noted Extremities Pulses: Normal: Right Posterior Tibial Pulse, Left Posterior Tibial Pulse, Right Radial Pulse, Left Radial Pulse Lower Extremity Edema: None: Bilateral Musculoskel Musculoskeletal: No joint tenderness Psych Psychological: normal affect Supplemental Info Echocardiogram from February 2018 showed moderately dilated left ventricle, severe global left ventricular systolic dysfunction, es timated ejection fraction of 15%, based septal motion, stage III diastolic dysfunction, moderately severe mitral valve insufficiency, RVSP of 53 mmHg, moderate tricuspid valve insufficiency, small peric ardial effusion, and when compared to previous study changes are noted. Pacemaker check from February 2018 showed no VT/VF episodes since October 2017. Assessment AND Plan 1. Cardiomyopathy in other dis eases classified elsewhere I43 EF is 15% LUPE Hawk Her echocardiogram in February 2018 showed moderately dilated left ventricle and ejection fraction 15%. It also showed stage III diastolic dysfunction. Her shortness of breath is improved since adding Lasix at last office visit. However, she does still have some shortness of breath at rest and with exertion that fluctuates. At this time we will continue to monitor. She was instructed to contact office if symptoms worsen for further consideration of laboratory work and diuretic adjustment if indicated. 2. Presence of implantable cardiove rter-defibrillator (ICD) Z95.810 Generator change 11/13 @ [facility] LUPE Chapman Pacemaker check in February 2018 showed no VT/VF episodes since October 2017. She does not have a routine fo llow-up scheduled. This will be arranged for her. 3. Nonrheumatic mitral (valve) insufficiency I34.0 LUPE Hawk Her echocardiogram in February 2018 showed moderately severe mitral valve insuf ficiency. This may be contributing to her shortness of breath on exertion. At this time we will continue to monitor. She was again instructed to contact office if symptoms change and/or worsen. 4. Karis nd ischemia I24.8 Plan - LUPE Black Her troponin I was elevated in February 2018. It was believed this was related to demand rather than obstructive coronary artery disease. Patient denies any chest pain, left arm, jaw, or neck pain. She has completed physical therapy without incident and is hoping to continue to exercise on her own regularly. At this time we will continue to monitor closely. 5. A cute deep vein thrombosis (DVT) of brachial vein of left upper extremity I82.622 Plan - LUPE Black This is being followed by primary care physician. At this time she will continue with factor Xa inhibitor. 6. Anemia, unspecified type D64.9 Plan - LUPE Black Her most recent hemoglobin on 05/25/18 was 11 g/dl. At this time we will continue to follow without any medication adjustments. Johnnie n Detail Other Medications Discontinued: Additional Comments - MYRON Black Thank you for allowing us to participate in the patients plan of care, if you have any questions please do not hesitate to call. This note was generated using a voice recognition system and there may be incorrect words, spelling or punctuation that were not noted when reviewing the office note prior to saving. 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/18 (GIUSEPPE) Coding Level of Care Code Off vis,est,level 3 Diagnoses Cardiomyopathy in other diseases classified elsewhere I43 Presence of implantable cardioverter-defibrillator (IC D) Z95.810 Nonrheumatic mitral (valve) insufficiency I34.0 Demand ischemia I24.8 Acute deep vein thrombosis (DVT) of brachial vein of left upper extremity I82.622 Chronicity: acute Anemia, unspecified t ype D64.9 Anemia type: unspecified type Coding Level of Care Code Off vis,est,level 3 Diagnoses Cardiomyopathy in other diseases classified elsewhere I43 Presence of implantable cardioverter-defibril lator (ICD) Z95.810 Nonrheumatic mitral (valve) insufficiency I34.0 Demand ischemia I24.8 Acute deep vein thrombosis (DVT) of brachial vein of left upper extremity I82.622 Chronicity: acute Anemia, unsp ecified type D64.9 Anemia type: unspecified type 05/31/18 1556 <Electronically signed by Oscar ANDRADE> Date [facility] Peyton griffin Signature: Date (if applicable) CC: Sangeetha Irvin DO 05-Jun-2018 Oncology Visit Report Result: Comments: See Note; NOTES: [facility] [address] [place] [address] OFFICE VISIT Date of Service: 06/05/18 1314 MR#: [id number] Acct: [id number] Name: TYLOR ASHRAF Rep #: [id number] : 1965 From: Simeon Gresham MD Age/Sex: 53/F Location: OMD Status: Signed Subjective - Date of Service Date of Service:: 06/05/18 - Chief Complaint Follow up DLBCL - His tory of Present Illness 53-year-old woman was diagnosed with non-Hodgkin's lymphoma, diffuse large B cell, stage IV of the uterine cervix with ADJ[employer]CT IN[employer]CTOR [employer] WOMEN'[employer]UDIES/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 She had an epidural mass with and had T4-T9 decompression laminectomy with excision of mass at T6- T8 on June 22, 2006. She received R CHOP 8 which was completed on January 16 2007. She did receive intrathecal methotr exate 4 which was completed on November 23, 2006. She had high-dose chemotherapy with autologous stem cell transplant in February 2007 at [facility] with complete remission. She is on observation, com es in for follow up. - Past Medical/Social History Past Medical History Past Medical History: Depression,Diabetes mellitus,Heart disease,Sleep apnea,Fibromyalgia Other Past Medical History: THYROID NO DULE Cancer: Lymphoma Past Surgical History Surgical: Cholecystectomy Other Surgical History: HEEL SPUR SURGERY STEM CELL TRANSPLANT DECOMPRESSIVE LAMINECTOMY TO REMOVE MASS T6-7 HYSTEROSCOPY AND D F amily History Paternal Past Medical History: Diabetes mellitus,Hypertension,Stroke Maternal Past Medical History: Hypertension Social History Social History: No changes Smoking Status Never smoker Review of Systems Constitutional:: Reports: Fatigue. Denies: Fever, Sweats, Weight loss, Appetite change, Chills Cardiovascular:: Denies: Chest pain, Palpitations, Dyspnea on exertion, Orthopnea, PND, Shortness of breath Respiratory: Denies: Cough, Hemoptysis, Shortness of Breath, Wheezing Gastrointestinal:: Denies: Abdominal pain, Nausea, Vomiting, Diarrhea, Constipation, Hematochezia Genitourinary: Denies: Dysuria, Hematuria, 15, Flank pain Musculoskeletal:: Denies: Back pain, Myalgia, Arthralgia Skin: Denies: Rash, Skin Changes, Wounds Neurological:: Denies: Headache, Dizziness, Visual changes, Tinnitus, Hearing loss Psychiatric: Denies: Anxiety, Depression, Homicidal Ideations, Suicidal Ideations Vital Signs Height 5 ft 6 in Weight: 94.438 kg Weight in Pounds 208.2 lbs Pulse Ox 96 - Phys ical Exam General: Alert, Oriented x3, No apparent distress HEENT: Atraumatic, PERRLA, EOMI, Normocephalic Oropharynx:: Dry mucosa Neck:: Supple, Trachea midline. Negative for: JVD, bilateral Cardiac:: Regular rate, Regular rhythm, Normal S1, Normal S2. Negative for: Murmur Lungs: Clear to auscultation, Excusion symmetrical. Negative for: Rhonchi, Wheezes Abdomen:: Bowel sounds x 4, Soft, Non-tender, Non-distended. Negative for: Hepatosplenomegaly Extremities:: Negative for: Cyanosis, Edema Neurological: Neuro grossly intact Skin:: Negative for: Lesions, Rash, Petechiae, Ecchymosis Psychiatric:: Mone ropriate affect, Euthymic Lymphatics:: Negative for: Cervical lymphadenopathy, Supraclavicular lymphadenopathy, Axillary lymphadenopathy Laboratory Data: Laboratory Tests Assessment and Plan NHL-DL BC stage IV. No evidence of disease clinically. Iron deficiency. Plan is to continue observation. To try Iron fumarate or Gluconate 1 tab daily. RTC 6 months with CBC/CMP/LDH. Primary Care Provider: Simon DO Referring Provider: - Problem List (1) History of non-Hodgkin's lymphoma Status: Chronic (2) Iron deficiency Status: Chronic Code Visit Office Visits / Consults: 55778 OV L3 Est 1325 <Electronically signed by Simeon Gresham MD> Date Simeon Pacheco Signature: Date (if applicable) CC: 26-May-2018 Venous Duplex Upper Extremity Result: Comments: See Note; NOTES: [facility] Cardiovascular Services [address] [place] [address] Venous Duplex US, Unilateral 05/25/18 0903 MR#: [id number] Acct: [id number] Name: IFEOMA SILVA Rep #: [id number] : 1965 53 From: Juanjo Russo MD Attending Dr: Sangeetha Irvin DO Status: REG CLI Ordering Dr: Sangeetha Irvin DO Date: 05/25/18 Location: [facility] Sex: F C Admitted: Lois pedraza For Study: follow LUE DVT Left Proximal Left jugular vein is spontaneous, widely patent, phasic, with no intraluminal echogenicity noted. Left subclavian vein is spontaneous, widely patent, phasi c, with no intraluminal echogenicity noted. Left Arm Left axillary vein is spontaneous, patent, phasic, competent, compressible and demonstrates augmentation. Left brachial vein is compressible. Left ce phalic vein is compressible. Left basilic vein is compressible. Left Lower Arm Left radial vein is compressible. Left ulnar vein is compressible. Interpretation Summary Deep veins of the left upper ext remity are patent and compressible segmentally. There is no evidence of deep vein thrombosis. The superficial veins of the left upper extremity, the basilic and cephalic veins, are patent and compressib le. There is no evidence of left upper extremity superficial thrombophlebitis involving the veins imaged. __ _ Ordering Physician: Sangeetha Irvin Referring Physician: Sangeetha Irvin Performed By: Azucena Muñiz RVT and Student 05/26/18 1635 Date Juanjo Russo MD CC: Sangeetha Irvin DO Date Dictated: 05/25/18 0903 Date Transcribed: 05/26/18 163 Armorer Technician: Signed 06-Apr-2018 Chest 1 View (Portable) Result: Comments: See Note; NOTES: [facility] Imaging Services [address] [place] [address] Chest 1 View (Portable) MR#: [id number] Acct: [id number] Name: MARIOWAQASIFEOMA Ashok Rep #: : 1965 F 53 From: Levy Lucas DO PCP: Sangeetha Irvin DO Status: PRE ER Study: Chest 1 View (Portable) Date of Exam: 04/06/18 Exam# [id number] Ordering Dr: Dejuan Bacon MD STUDY: X-RAY CHEST REASON FOR EXAM: Female, 53 years old. Cough with confusion TECHNIQUE: Single AP portable view of the chest. COMPARISON: 03/07/2018 FINDINGS: Stable left jesus st wall pacing device The lungs are clear and expanded. There is no demonstrated pleural abnormality. There is mild cardiac enlargement. Normal mediastinum and kari. Normal visualized pulmonary arteri es. Normal visualized aortic arch and descending thoracic aorta. There are diffuse degenerative changes of the visualized thoracic spine. There is degenerative osteoarthritis of the bilateral shoulders . There is no demonstrated abnormality of the visualized soft tissue structures of the upper abdomen. RAD/Chest 1 View (Portable) IMPRESSION: No acute cardiopulmonary disease Electronically Signed: Levy Lucas DO at 18:56 EDT Tel , Service support , CC: Sangeetha Irvin DO; Dejuan Bacon Armorer Technician: Signed 05-Apr-2018 Brain/Head without Contrast Result: Comments: See Note; NOTES: [facility] Imaging Services [address] [place] [address] Brain/Head without Contrast MR#: [id number] Acct: [id number] Name: IFEOMA ASHRAF Rep # : [id number] : 1965 F 53 From: Levy Lucas DO PCP: Sangeetha Irvin DO Status: REG CLI Study: Brain/Head without Contrast Date of Exam: 04/05/18 Exam# [id number] Ordering Dr: Oscar Bartlett MD STUDY : CT BRAIN WITHOUT CONTRAST REASON FOR EXAM: Female, 53 years old. Fall with altered mental status RADIATION DOSAGE (If Supplied By Facility): CTDIvol = ( 44.99 ) mGy, DLP = ( 745.49 ) mGycm TECHNIQU E: Transaxial CT imaging of the brain was performed without administration of intravenous contrast material. Individualized dose optimization techniques were used for this CT. COMPARISON: 03/08/2018 __ FINDINGS: Adjacent to the right parietal lobe, there appears to be an area of isodense subdural fluid collection which was not clearly identifiable on the most recent prior head CT. This is seen on both the axial and coronal sequences. Unsure if this represents small subacute subdural hematoma. Normal soft tissue structures. Normal calvarium. There is mild cerebra l atrophy with widening of the extra-axial spaces and ventricular dilatation. There are areas of decreased attenuation within the white matter tracts of the supratentorial brain, consistent with microva scular disease changes. Normal basal ganglia and thalami. Normal brainstem. Normal cerebellum. Normal visualized paranasal sinuses. CT/Brain/Hea d without Contrast IMPRESSION: 1. Questionable small area of isodense subdural fluid along the right parietal lobe as detailed above. Possible hygroma? Not seen on the most recent prior exam. May repres ent volume averaging versus resolving small subdural hematoma. MRI brain needed to further evaluate 2. Otherwise, mild chronic involutional changes of the brain N.B. : The above information has been v erbally conveyed by Levy Lucas DO to connected , Covering Physician, on 04/05/2018 14:06:03 (ET). Electronically Signed: Levy Lucas DO at 14:06 EDT Tel , Service support [phone]- [phone], N.B. : The above information has been verbally conveyed by Levy Lucas DO to connected , Covering Physician, on 04/05/2018 14:06:03 (ET). CC: Sangeetha Irvin DO; Oscar Bartlett MD Armorer Technician: Signed 05-Apr-2018 Brain/Head without Contrast Result: Comments: See Note; NOTES: [facility] Imaging Services [address] [place] [address] Brain/Head without Contrast MR#: [id number] Acct: [id number] Name: IFEOMA ASHRAF Rep # : [id number] : 1965 F 53 From: Levy Lucas DO PCP: Sangeetha Irvin DO Status: REG CLI Study: Brain/Head without Contrast Date of Exam: 04/05/18 Exam# [id number] Ordering Dr: Oscar Bartlett MD STUDY : CT BRAIN WITHOUT CONTRAST REASON FOR EXAM: Female, 53 years old. Fall with altered mental status RADIATION DOSAGE (If Supplied By Facility): CTDIvol = ( 44.99 ) mGy, DLP = ( 745.49 ) mGycm TECHNIQU E: Transaxial CT imaging of the brain was performed without administration of intravenous contrast material. Individualized dose optimization techniques were used for this CT. COMPARISON: 03/08/2018 __ FINDINGS: Adjacent to the right parietal lobe, there appears to be an area of isodense subdural fluid collection which was not clearly identifiable on the most recent prior head CT. This is seen on both the axial and coronal sequences. Unsure if this represents small subacute subdural hematoma. Normal soft tissue structures. Normal calvarium. There is mild cerebra l atrophy with widening of the extra-axial spaces and ventricular dilatation. There are areas of decreased attenuation within the white matter tracts of the supratentorial brain, consistent with microva scular disease changes. Normal basal ganglia and thalami. Normal brainstem. Normal cerebellum. Normal visualized paranasal sinuses. CT/Brain/Hea d without Contrast IMPRESSION: 1. Questionable small area of isodense subdural fluid along the right parietal lobe as detailed above. Possible hygroma? Not seen on the most recent prior exam. May repres ent volume averaging versus resolving small subdural hematoma. MRI brain needed to further evaluate 2. Otherwise, mild chronic involutional changes of the brain N.B. : The above information has been v erbally conveyed by Levy Lucas DO to connected , Covering Physician, on 04/05/2018 14:06:03 (ET). Electronically Signed: Levy Lucas DO at 14:06 EDT Tel , Service support [phone]- [phone], N.B. : The above information has been verbally conveyed by Levy Lucas DO to connected , Covering Physician, on 04/05/2018 14:06:03 (ET). CC: Sangeetha Irvin DO; Oscar Bartlett MD Armorer Technician: Signed 31-Mar-2018 Cardiology Visit Report Result: Comments: See Note; NOTES: [facility] [address] [place] [address] OFFICE VISIT Date of Service: 03/31/18 MR#: [id number] Acct: [id number] Name: Ifeoma Ashraf Rep #: [id number] : 1965 Provider: Boone Ch MD Age/Sex: 53/F Location: [facility] Status: Signed HPI HPI Chief Complaint: Follow-up posthospitalization. Details: Ifeoma Ashraf, is a 53 F w ho presents to the office today for a follow-up visit. She has a past medical history of severe nonischemic cardiomyopathy with a 25% ejection fraction, AICD, diabetes mellitus type 2, morbid obesity, h istory of diffuse large B-cell lymphoma, pulmonary hypertension, mitral regurgitation and tricuspid regurgitation who presented to the emergency department at [facility] on 03/08/2018 aft er being found unresponsive in her bathroom. Vital signs at presentation to the emergency room were temp 37.3, pulse rate 88, respiratory rate 24, pressure 95/66 and pulse ox was 98% on a 2 L nasal elisabeth florence. Lab showed a low sodium of 129 with a potassium of 7.6. The BUN was 30 and the creatinine was 1.90. Creatinine in October 2017 was 0.85. Random blood sugar was 310 and a hemoglobin A1c was 5.7. La ctic acid was initially 12.4 and the patient had been taking metformin. Total bilirubin was elevated at 2.4 and the AST and ALT were increased at 149 and 120 respectively. Initial troponin was 0.081. Th e second troponin was 0.781. Brain CT was unremarkable. She was admitted to the intensive care unit and started on a bicarbonate drip. Diuretics were held. Metformin and lisinopril were held. She did re quire Levophed to maintain her pressure of with a mean systolic of 65. An echocardiogram showed an ejection fraction of 15% which was down from her last echocardiogram that showed 25% ejection fraction. There were no segmental wall motion abnormalities noted. The PA pressure was elevated at 53 and she had 2+ tricuspid valve regurgitation and 3+ mitral valve regurgitation. On PE she was noted to have s welling of the left upper extremity and a venous Doppler was ordered and showed acute DVT in the left axillary and left brachial veins. She was started on Eliquis 2.5 mg twice daily. An arterial study w as also ordered on the left upper extremity and the patient had normal circulation in the left arm. Interrogation of the AICD showed no VT/VF episodes since the last check in October 2017. She was wean ed off pressors and transferred to the progressive care unit. She was eventually transferred to [facility]. Her major problem at this time is related to her memory issues as well as fatigue. She con tinues to have some pedal edema as well. She has not had any neck arm or jaw discomfort suggest angina though. Intake Vital Signs03/31/18 Height 5 ft 5 in 03/31/18 Weight: 230 lb 03/31/18 Body Mass Ind ex (BMI) 38.2 03/31/18 Blood Pressure 100/58 03/31/18 Blood Pressure Location Lt brachial Intake Visit Reasons: DC to [facility] 03-14 Section Hand Required: No Accompanied by: mother Is patient in pain?: No Allergies amitriptyline Adverse Reaction (Severe, Verified 11/28/17 11:08) Nightmares naproxen sodium [From Aleve] Adverse Reaction (Severe, Verified 11/28/17 11:08) Swelling Sulfa (Sulfonamide Antibio tics) Adverse Reaction (Intermediate, Verified 11/28/17 11:08) Rash Latex, Natural Rubber Adverse Reaction (Mild, Verified 11/28/17 11:08) Other Medications Amitriptyline HCl 1 - 2 mg PO QHS PRN 02/24 11/13 [History Confirmed 03/08/18] Cholecalciferol (Vitamin D3) [Vitamin D3] 5,000 unit PO DAILY 03/07/18 [History Confirmed 03/08/18] Digoxin 125 mcg PO DAILY 03/07/18 [History Confirmed 03/08/18] Folic Acid 1 mg PO BIDCM 03/07/18 [History Confirmed 03/08/18] Gabapentin [Neurontin] 100 mg PO BID 03/07/18 [History Confirmed 03/08/18] Lamotrigine [Lamictal] 200 mg PO QHS 03/07/18 [History Confirmed 02/24 12/11] Omeprazole [Prilosec] 20 mg PO DAILY 03/07/18 [History Confirmed 03/08/18] Ondansetron HCl [Zofran] 4 mg PO Q8H PRN 03/07/18 [History Confirmed 03/07/18] Simvastatin [Zocor] 10 mg PO QHS 03/07/18 [History Confirmed 03/08/18] Venlafaxine HCl [Venlafaxine HCl ER] 150 mg PO DAILY 03/07/18 [History Confirmed 03/08/18] Apixaban [Eliquis] 5 mg PO BID #60 tab 03/12/18 [Rx] Melatonin 3 mg PO QHS #30 [Rx Confirmed 03/07/18] Sennosides [Senokot] 8.6 mg PO DAILY PRN #0 03/12/18 [Rx Confirmed 03/07/18] Carvedilol [Coreg (Beta Stephanie)] 3.125 mg PO BID tab 03/14/18 [Rx] Clonazepam [Klonopin] 1 mg PO QHS #10 tab 03/14/18 [Rx] Levothyroxine [Synthroid] 50 mcg PO DAILY #1 03/14/18 [Rx Confirmed 03/08/18] Oxycodone [Oxyir] 5 mg PO Q6H PRN PRN 7 Days #28 tab 03/14/18 [Rx] Ejection fraction %: 25 to 29 PFSH Medical History Nonrheumatic mitral (valve) insufficiency (Chronic) Non-rheumatic tricuspid valve insufficiency (Chronic) History of non-Hodgkin 's lymphoma (Resolved) Anemia (Chronic) Deep vein thrombosis (DVT) of brachial vein of left upper extremity (Resolved) Cardiogenic shock (Resolved) Pulmonary hypertension (Chronic) Type 2 diabetes melli tus without complications (Chronic) Cardiomyopathy in other diseases classified elsewhere (Chronic) Shortness of breath (Chronic) Diffuse large B-cell lymphoma (Chronic) Bilateral caract surgery (Acute) Decomp laminectomy to remove T6-7 mass (Acute) Depression (Acute) Fibromyalgia (Acute) Heel spur surgery (Acute) History of hysteroscopy (Acute) Left thyroid aspiration (Acute) Replacement of generator for debrillator (Acute) Sleep apnea (Acute) Thyroid nodule (Acute) Surgical History Presence of implantable cardioverter-defibrillator (ICD) (Chronic 0 11/10/17) History of cholecystectomy (Acute) History of stem cell transplant (Acute) Family History Father CVA (cerebral vascular accident) Diabetes Hyper tension Mother Hypertension Brother Diabetes Hypertension Social History Smoking Status: Never smoker ROS Const Const: Negative for fatigue, weakness, night sweats, excessive sweating, frequent f alls, headache(s) or daytime sleepiness Eyes Eyes: Negative for loss of peripheral vision, transient loss of vision, blind spots, double vision or blurry vision ENT ENT: Negative for headache(s), dizzin ess, balance problems, Nosebleed/epistaxis, tongue swelling or lip swelling Cardio Chest Pain: No Palpitations: No Edema: None Muscle aches with walking: None Resp Respiratory: Negative for SOB at rest, SOB orthopnea\SOB lying down, Cough, paroxysmal nocturnal dyspnea or SOB with activity GI GI: Negative nausea, vomiting, heartburn, black,tarry stools or bright, red blood in stools : Negative for hematuria Musc Musc: Negative for balance problems, muscle aches/ myalgia, muscle weakness or joint pain Skin Skin: Negative non-healing lesions, unusual bruising or rash Neuro Neuro: Negative for weak ness, frequent falls, headache(s), double vision, dizziness, lightheadedness, orthostatic symptoms, blurry vision or lack of coordination Aniceto Hematologic/Lymphatic: Negative for easy bruising or easy b leeding Endo Endo: Negative for fatigue, excessive sweating, cold intolerance, heat intolerance, increased thirst/drinking or hair loss Psych Psych: Negative for anxiety or depression Allergy Allergy/Im munology: Negative for throat swelling, Negative for tongue swelling, Negative for hives, Negative for rash, Negative for lip swelling Cardiology Exam Const Appearance: cooperative, healthy appearing, well developed, well groomed and no acute distress Nutritional Appearance: well nourished and average body habitus Orientation: alert, awake and oriented x3 Head Head: normal to inspection, normocephal ic and atraumatic Ears: hearing grossly normal bilaterally and external ears normal Nose: external nose normal, nasal mucous membranes and turbinates normal, nares normal, septum normal, no nasal discha rge Face and Sinus: face symmetric Mouth: oral mucosae normal, tongue normal, oropharynx normal and moist mucous membranes Teeth and gingiva: dentition normal Throat: posterior oropharynx normal, tonsil s normal and uvula midline Eyes General: appearance normal, both eyes and all related structures Eyelids: eyelids normal Conjunctivae: conjunctivae normal Pupils: PERRL, normal by confrontation and acco mmodation normal EOM: EOM intact bilaterally Neck Neck: normal visual inspection, trachea midline and no JVD JVD: +5 Carotids: normal carotid upstroke and bounding pulses Chest Chest inspection: normal inspection of the chest, symmetric chest movement and normal respiratory effort Auscultation: Bilateral: Clear to Auscultation Cardio Palpation: normal PMI Rate: regular rate Rhythm: regular rhythm Hear t sounds: S1 normal, S2 normal and normal, physiologic split S2; negative rub, gallop or murmur GI GI: normal to inspection, soft, no hepatosplenomegaly and bowel sounds present Neuro General: alert, aw rajat, oriented x3, no focal sensory deficit, gait normal and moves all extremities Skin Skin: no rashes or lesions noted Extremities Lower Extremity Edema: +2: Bilateral Musculoskel Musculoskeletal: No j oint tenderness Psych Psychological: normal affect Assessment AND Plan 1. Cardiomyopathy in other diseases classified elsewhere I43 EF is 15% Plan She does have severe nonischemic cardiomyopathy. She is currently recovering from her recent hospitalization. Her blood pressures have been marginal but I would suggest that we continue her on her current medical therapy. I would like to obtain a associate professor of chemistry ry profile to be able to appropriately adjust any diuretics. At this juncture it may be prudent to add Lasix 40 mg a day to her current regimen. 2. Presence of implantable cardioverter-defibrillator (I CD) Z95.810 Generator change 11/13 @ [facility] Dr. Ahmadi Plan She does have an implantable defibrillator which appears to be functioning well she had this interrogated at her last hospitalization. There were no VT or VF episodes noted. 3. Deep vein thrombosis (DVT) of brachial vein of left upper extremity I82.622 Plan She does have a DVT of her brachial vein and the recommendation will be for her to contin ue anti-coagulation for minimum of 3 months. 4. Demand ischemia I24.8 Plan She did have evidence of demand ischemia. It was determined that this is likely not secondary to obstructive coronary disease and will continue to monitor her carefully. I would like us to obtain a chemistry profile at this visit and see her again in the next 2-3 months. 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) Coding Level of Care Code Off vis,est,level 5 Diagnoses Cardiomyopathy in other diseases classified elsewhere I43 Presence of implantable cardioverter-defibrillator (ICD) Z95.810 Deep vein thrombosis (DVT) of brachial vein of left upper extremity I82.622 Demand ischemia I24.8 Coding Level of Care Code Off vis,est,level 5 Diagnoses Cardiomyopathy in other diseases classified elsewhere I43 Presence of implantable c ardioverter-defibrillator (ICD) Z95.810 Deep vein thrombosis (DVT) of brachial vein of left upper extremity I82.622 Demand ischemia I24.8 03/31/18 1514 <Electronically signed by Boone Vega> Date Boone Pacheco Signature: Date (if applicable) CC: Sangeetha Irvin DO 22-Nov-2017 TXT - Blood Flow Screening Result: Comments: See Note; NOTES: [facility] Cardiovascular Services [address] [place] [address] 11/22/17 0803 MR#: [id number] Acct: [id number] Name: IFEOMA ASHRAF Rep #: [id number] : 1965 52 From: Juanjo Russo MD Attending Dr: Sangeetha Irvin DO Status: REG REF Ordering Dr: Date: 11/22/17 Location: [facility] Sex: F C Admitted: Carotid Duplex Ultrasound Abdominal Aorta T he right ECA velocity is less than 125 cm/s. The maximal outside diameter of the proximal The right maximum ICA velocity is 55.7/23.5 cm/s.aorta measures 1.33 cm in the longitudinal axis. There is insig nificant plaque formation noted on The maximal outside diameter of the proximal the right side. aorta measures 1.24 x 1.22 cm in the cross- The left ECA velocity is less than 125 cm/s. sectional axis. T he left maximum ICA velocity is 49.2/17.6 cm/s. There is insignificant plaque formation noted on the left side. Ankle Brachial Index The right ankle/ brachial index is 1.0. The left ankle/ brachial ind ex is 1.1. Medical History and Assessment The patient presents with a history of CHF, HTN, and DM. The heart rate is 90 beats per minute. The heart rhythm is regular. The right blood pressure is 100/70 . The left blood pressure is 98/72. The assessment was performed by Steph Galvan RVT. Interpretation Summary Normal carotid artery screening (0 to 15% narrowing). Normal aortic ultrasound exam. The ankle/brachial index is normal (1.0 or greater). .rdering Physician: Sangeetha Irvin D.O Performed By : Orlando Galvan RVT 11/22/17 1518 Date Juanjo Russo MD CC: Sangeetha Irvin DO Date Dictated: 11/22/17 0803 Date Transcribed: 11/22/17 1518 Armorer Technician: Signed 18-Nov-2017 Office Visit Report Result: Comments: See Note; NOTES: [facility] Services [address] [place] [address]. [place] [address] OFFICE VISIT Date of Service: 11/17/17 MR#: [id number] Acct: [id number] Patient: IFEOMA ASHRAF Rep #: [id number] : 1965 Provider: Danica Pickering Age/Sex: 52/F Location: [facility] Status: Signed Comments Summary Comments: Wound Check: 1 wk post ICD generator change Wound check completed. Left pecto ral pocket/incision open to air with steri-strips intact. A few of loose steri- strips removed. Incision well approximated w/o redness or drainage. No hematoma noted. Mild ecchymosis under arm. Mild tape irritation noted at top of pocket site from opsite. Pt afebrile T=97.8 degrees F temporally. Pt scheduled for f/u device check in 3 mos. Device Device Date Interviewed: 11/17/17 Follow-up Location: i n office Interview Reason: scheduled follow up Brand Sales Manager: [employer] Name: Lan PRO Model: [id number] Serial #: [id number] Implant Date: 11/10/17 Year(s): 0 Implant Physician: Dr. 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 Model Lead 1: 7121Q/58 Serial# Lead 1: [id number] Date Implanted Lead 1: 10/10/09 Position Lead 1: RV Tachy Settings VF Therapies VF Therapy Status On On On O n On On Energy 25 36 36 36 36 36 Pathway ATP: During charging on FVT Therapies FVT Therapy Status On On On On On On VT Therapies FVT Therapy Status Off Off Off Off Off Off Comments: Willian Sett ings Willian Settings Pacemaker Mode VVI Lower Rate Limit (bpm) 40 Hysteresis Rate (bpm) Max Track Rate (bpm) Max Sensor Rate (bpm) Max AV Delay (msec) Max PV Delay (msec) Max PVARP (msec) Output/Sen sing V/PW (ms) 2.0/0.5 Sensitivity RA RV LV Comments: Billing Codes Nurse, Teaching, Wound Ck (no charge): Yes Assessment AND Plan Problems 1. S/P implantation of automatic cardioverter/defibr illator (AICD) Z95.810 10/06/2009 @ [facility] 2. Cardiomyopathy in other diseases classified elsewhere I43 11/17/17 8820 <Electronically signed by Danica Pickering > Date Danica Pickering 11/18/17 0813<Electronically signed by Noe Morris MD> Cosigner Signature: Date (if applicable) Noe Morris MD CC: 10-Nov-2017 Operative Report Result: Comments: See Note; NOTES: [facility] Medical Records Department [address] [place] [address] Operative Report 11/10/17 1148 MR#: [id number] Acct: [id number] Name: SALOME ASHRAF Rep #: [id number] : 1965 52 From: Lior Ahmadi MD PCP: Sangeetha Irvin DO Status: REG [facility] Location: [facility] Operative Report Date of Procedure: 11/10/17 Preoperative diagnosis is device at end of life for normal battery depletion. Postoperative diagnosis same as above. After informed consent and IV antibiotics the patient was brought to the [place] [facility] and the ski n over the device was prepped and draped in the usual sterile manner. Intermittent boluses of Versed, fentanyl and propofol were used for sedation and analgesia as well as 1% subcutaneous lidocaine. An incision was made over the pre-existing device. Using blunt and Bovie dissection the pocket was opened and the device was removed. Careful attention was paid not to injure the pre-existing leads. The l ead was removed from the device header and interrogated. There is normal lead function. Hemostasis was obtained. The pocket was flushed with antibiotic solution. The sponge and needle count were correct . The new device was brought to the field. The lead was placed in the appropriate position in the header and secured by the set screw. The lead and the device were then placed in the pocket. Device is a single chamber ICD witha single RV lead. The pocket was closed with a deep layer of running 2-0 Vicryl, a superficial layer of running 4-0 Vicryl, skin with Steri-Strips which were covered with a davey d 4 x 4 and Tegaderm. Patient left the room with the device programmed to proper parameters and there were no complications. All lead parameters were tested and found to be functionally normal. Lead a nd device serial and model numbers are available in the chart documents provided by the device company litigation claim representative procedure summary. 11/10/17 1150 <Electronically signed by Lior Ahmadi MD > Date Lior Ahmadi MD CC: Sangeetha Irvin DO; Lior Ahmadi MD Signed 03-Nov-2017 Office Visit Report Result: Comments: See Note; NOTES: [facility] [address] [place] [address] OFFICE VISIT Date of Service: 11/03/17 MR#: [id number] Acct: [id number] Patient: IFEOMA ASHRAF Rep #: [id number] : 1965 Provider: Danica Pickering Age/Sex: 52/F Location: [facility] Status: Signed Comments Summary Comments: Written and verbal instructions given for ICD generator change with Dr. Ahmadi on 11/10/17. All Questions answered. Pt having labs and CXR done today. Pt states she was to see Dr. Ferreira today and has a bladder infection that is reoccurrent for her and will be treated with antibio tic (Cipro) for 3 day. Device Device Date Interviewed: 11/03/17 Follow-up Location: in office Interview Reason: routine follow up Brand Sales Manager: [employer] Name: Current VR Model: 1211-36Q ICD Serial #: [id number] Implant Date: 10/10/09 Year(s): 8 Implant Physician: [facility] Patient Characteristics Patient Substrate: Nonischemic cardiomyopathy (dilated cardiomyopathy caused from Chemo drugs) Ejection fraction % : 25 to 29 (02/2015) By: Echo Underlying rhythm: Sinus rhythm Pacemaker Dependent: No Device Characteristics Device: Single Chamber Type: Implantable defibrillator Remote Follow-Up: No Leads Lead #1 M anufacturer Lead 1: [employer] Model Lead 1: 7121Q/58 Serial# Lead 1: [id number] Date Implanted Lead 1: 10/10/09 Position Lead 1: RV Tachy Settings VF Therapies VF Therapy Status On On On On On On Ener gy 25 36 36 36 36 36 Pathway ATP: During charging on FVT Therapies FVT Therapy Status On On On On On On VT Therapies FVT Therapy Status Off Off Off Off Off Off Comments: Willian Settings Willian S ettings Pacemaker Mode VVI Lower Rate Limit (bpm) 40 Hysteresis Rate (bpm) Max Track Rate (bpm) Max Sensor Rate (bpm) Max AV Delay (msec) Max PV Delay (msec) Max PVARP (msec) Output/Sensing V/PW ( ms) 2.0/0.5 Sensitivity RA RV LV Comments: Billing Codes Nurse, Teaching, Wound Ck (no charge): Yes Assessment AND Plan Problems 1. S/P implantation of automatic cardioverter/defibrillator (AIC D) Z95.810 10/06/2009 @ [facility] 2. Cardiomyopathy in other diseases classified elsewhere I43 11/03/17 1251 <Electronically signed by Danica Pickering > Date Danica Pickering 11/03/17 1648<Electronically signed by Boone Ch MD> [facility] Signature: Date (if applicable) Boone Ch MD CC: 03-Nov-2017 Cardiology Visit Report Result: Comments: See Note; NOTES: [facility] [place] [address] OFFICE VISIT Date of Service: 11/03/17 MR#: [id number] Acct: [id number] Name: IFEOMA ASHRAF Rep #: [id number] : 1965 Provider: Boone Ch MD Age/Sex: 52/F Location: [facility] Status: Signed HPI HPI Details: IFEOMA ASHRAF, is a 52 F who presents to the office today for a preoperati ve visit. She is a lady with a history of nonischemic cardiomyopathy status post ICD implantation and persistent LV dysfunction as well as non-Hodgkin's lymphoma. She returns for follow-up visit as well as evaluation prior to the change out of her defibrillator. She denies any chest pain or shortness of breath or paroxysmal nocturnal dyspnea or pedal edema she does have some shortness of breath and fa tigue with exertion. However this is not long-standing. She does not feel any skipped heartbeats and she has not had any major issues. She is currently being treated for a urinary infection with antibio tics. She has had no neck arm or jaw discomfort suggest angina no dizziness or diaphoresis no near syncope or syncope. Intake Vital Signs11/03/17 Height 5 ft 6 in 11/03/17 Weight: 206 lb 11/03/17 Body Mass Index (BMI) 33.2 11/03/17 Blood Pressure 90/50 Intake Visit Reasons: Update H AND P for generator change Allergies amitriptyline Adverse Reaction (Severe, Verified 11/03/17 11:54) Nightmares na proxen sodium [From Aleve] Adverse Reaction (Severe, Verified 11/03/17 11:54) Swelling Sulfa (Sulfonamide Antibiotics) Adverse Reaction (Intermediate, Verified 11/03/17 11:54) Rash Latex, Natural Rubber Adverse Reaction (Mild, Verified 11/03/17 11:54) Other Medications Furosemide [Lasix] 40 mg PO DAILY 02/28/15 [History Confirmed 10/27/17] Lisinopril [Zestril] 2.5 mg PO DAILY 02/28/15 [History Conf irmed 10/27/17] Carvedilol [Coreg (Beta Stephanie)] 3.125 mg PO BID 03/24/15 [History Confirmed 10/27/17] Clonazepam [Klonopin] 1 mg PO QHS 03/24/15 [History Confirmed 10/27/17] Digoxin [Lanoxin] 125 mcg PO DAILY 03/24/15 [History Confirmed 10/27/17] Folic Acid 2 mg PO DAILY@0800 03/24/15 [History Confirmed 10/27/17] Levothyroxine Sodium [Levoxyl] 100 mcg PO SUSA 03/24/15 [History Confirmed 10/27/17] Le vothyroxine [Synthroid] 50 mcg PO MOTUWETHFR 03/24/15 [History Confirmed 11/03/17] Lamotrigine [Lamotrigine] 200 mg PO QHS 04/02/15 [History Confirmed 10/27/17] Spironolactone [Spironolactone] 12.5 mg P O DAILY 04/02/15 [History Confirmed 10/27/17] Cholecalciferol (Vitamin D3) [D3- 2000] 5,000 unit PO QODAY 06/06/17 [History Confirmed 10/27/17] Melatonin 3 mg Tablet 3 mg PO DAILY 06/06/17 [History Confi rmed 10/27/17] Metformin HCl [Glucophage] 500 mg PO BIDCM 06/06/17 [History Confirmed 10/27/17] Senna/Docusate Sodium [Senokot-S] 17.2 mg PO DAILY 06/06/17 [History Confirmed 10/27/17] Venlafaxine HCl [ Venlafaxine HCl ER] 150 mg PO DAILY 06/06/17 [History Confirmed 10/27/17] amitriptyline 10 mg tablet 10 mg PO QHS tab 11/03/17 [History Confirmed 11/03/17] gabapentin 100 mg capsule 100 mg PO .COMPLEX 0 11/03/17 [History Confirmed 10/27/17] gabapentin 400 mg capsule 400 mg PO .COMPLEX cap 11/03/17 [History Confirmed 11/03/17] hydrocodone 5 mg-acetaminophen 325 mg tablet 1 tab PO .COMPLEX PRN tab 8 [History] potassium chloride ER 20 mEq tablet,extended release(part/cryst) 20 meq PO .COMPLEX 11/03/17 [History Confirmed 10/27/17] simvastatin 10 mg tablet 10 mg PO .COMPLEX 11/03/17 [History Confirm ed 10/27/17] Ejection fraction %: 25 to 29 (25% per echo 03/11/2015) [facility] Medical History Type 2 diabetes mellitus without complications (Chronic) Cardi omyopathy in other diseases classified elsewhere (Chronic) Abnormal electrocardiogram (Chronic) Shortness of breath (Chronic) Diffuse large B-cell lymphoma (Chronic) Surgical History (Reviewed 8 @ 13:51 by Boone Ch MD) S/P implantation of automatic cardioverter/defibrillator (AICD) (Chronic) Family History Father CVA (cerebral vascular acc ident) Diabetes Hypertension Mother Hypertension Brother Diabetes Hypertension Social History Smoking Status: Never smoker ROS Const Const: Positive for other (Just got over URI and ATB, now on A TB for UTI, will do U/A on Tuesday) and fatigue; negative for body ache, fever(s), chills, night sweats, daytime sleepiness, difficulty sleeping, weight gain, weight loss, increased appetite, poor appeti te, anorexia or excessive sweating ENT ENT: Negative for balance problems Cardio Chest Pain: No Palpitations: Positive for Yes (occasional) Palpitations: skipping; negative for No Edema: None Muscle ach es with walking: None Resp Respiratory: Positive for SOB with activity and other (dry cough, had a URI); negative for SOB at rest, SOB orthopnea\SOB lying down, Coughing up blood/hemoptysis, chest conge stion, pain on inspiration, snoring, stridor, wheezing, crackles or paroxysmal nocturnal dyspnea GI GI: Negative nausea, vomiting, heartburn, constipation, belching, bloating, cramping, vomiting blood/h ematemesis, bright, red blood in stools, black,tarry stools, loose stools, Difficulty Swallowing or other : Negative for hematuria, frequent nighttime urination/ nocturia, erectile dysfunction or a bnormal vaginal bleeding Musc Musc: Negative for muscle aches/ myalgia, muscle weakness, joint pain or balance problems Endo Endo: Positive for fatigue; negative for cold intolerance, heat intolerance, excessive sweating, flushing, increased thirst/drinking, increased hunger, hair loss, hair growth or other Cardiology Exam Const Appearance: cooperative, healthy appearing, well developed, well groome d and no acute distress Nutritional Appearance: well nourished and average body habitus Orientation: alert, awake and oriented x3 Head Head: normal to inspection, normocephalic and atraumatic Ears: hear ing grossly normal bilaterally and external ears normal Nose: external nose normal, nasal mucous membranes and turbinates normal, nares normal, septum normal, no nasal discharge Face and Sinus: face sym metric Mouth: oral mucosae normal, tongue normal, oropharynx normal and moist mucous membranes Teeth and gingiva: dentition normal Throat: posterior oropharynx normal, tonsils normal and uvula midline E yes General: appearance normal, both eyes and all related structures Eyelids: eyelids normal Conjunctivae: conjunctivae normal Pupils: PERRL, normal by confrontation and accommodation normal EOM: EOM in tact bilaterally Neck Neck: normal visual inspection, trachea midline and no JVD JVD: +5 Carotids: normal carotid upstroke and bounding pulses Chest Chest inspection: normal inspection of the chest, sym metric chest movement and normal respiratory effort Auscultation: Bilateral: Clear to Auscultation Cardio Palpation: normal PMI Rate: regular rate Rhythm: regular rhythm Heart sounds: S1 normal, S2 norm al and normal, physiologic split S2; negative rub, gallop or murmur GI GI: normal to inspection, soft, no hepatosplenomegaly and bowel sounds present Neuro General: alert, awake, oriented x3, no focal s ensory deficit, gait normal and moves all extremities Skin Skin: no rashes or lesions noted Extremities Pulses: Normal: Right Femoral Pulse, Left Femoral Pulse, Right Dorsalis Pedis Pulse, Left Dorsalis Pedis Pulse, Right Posterior Tibial Pulse, Left Posterior Tibial Pulse, Right Radial Pulse, Left Radial Pulse Lower Extremity Edema: None: Bilateral Musculoskel Musculoskeletal: No joint tenderness Psy ch Psychological: normal affect Assessment AND Plan 1. S/P implantation of automatic cardioverter/defibrillator (AICD) Z95.810 10/06/2009 @ [facility] Plan She is status post ICD implantation and there are i ndications that she has reached elective replacement of indicator. She is therefore being set up for a defibrillator change out next week. A repeat urinalysis will be performed to make sure that her uri nary infection has cleared. 2. Cardiomyopathy in other diseases classified elsewhere I43 Plan She does have severe left ventricular systolic dysfunction with an estimated ejection fraction of 25%. This is global. She has been on a beta-stephanie as well as her DIAMOND inhibitor and digoxin. She remembers she was also being followed up at the [facility]. She is also on spironolactone and sh e has marginal blood pressures which have not allowed us to increase her medications any further. We will continue to follow on the above and will consider a repeat echocardiogram later this year. There are no plans at the moment for her to undergo any further chemotherapy. Thank you for allowing me to participate in the care of your patient. Please don't hesitate to call if any issues arise Plan Det ail Follow Up 4 Months (mmm) Coding Level of Care Code Off vis,est,level 4 Diagnoses S/P implantation of automatic cardioverter/defibrillator (AICD) Z95.810 Cardiomyopathy in other diseases classifie d elsewhere I43 Coding Level of Care Code Off vis,est,level 4 Diagnoses S/P implantation of automatic cardioverter/defibrillator (AICD) Z95.810 Cardiomyopathy in other diseases classified elsewhere I 43 11/03/17 1354 <Electronically signed by Boone Ch MD> Date Boone Ch MD Cosigner Signature: Date (if applicable) CC: Sangeetha Irvin DO 03-Nov-2017 Chest PA and Lateral Result: Comments: See Note; NOTES: [facility] Imaging Services [address] [place] [address] Chest PA and Lateral MR#: [id number] Acct: [id number] Name: IFEOMA ASHRAF Rep #: [id number] : 1965 F 52 From: Dimitris Valderrama DO PCP: Sangeetha Irvin DO Status: PRE [facility] Study: Chest PA and Lateral Date of Exam: 11/03/17 Exam# [id number] Ordering Dr: Boone Ch MD STUDY: X-RAY CHEST R MINGO FOR EXAM: Female, 52 years old. ICD generator change. TECHNIQUE: PA and lateral views of the chest. COMPARISON: February 17, 2013. FINDINGS: The lungs are hypoex panded. No infiltrate or mass. Resolution of mild vascular congestion seen on the prior study. There is no pneumothorax. There is no demonstrated pleural abnormality. The heart remains borderline enlar ged. Stable pacemaker/ICD. Normal mediastinum and kari. Normal visualized pulmonary arteries. Normal visualized aortic arch and descending thoracic aorta. No visualized osseous changes. Normal visualiz ed ribs, clavicles, and shoulders. There is no demonstrated abnormality of the visualized soft tissue structures of the upper abdomen. RAD/Chest PA and Lateral IMPRESSION: Stable borderline cardiomegaly with cardiac pacemaker. There is no acute pulmonary disease. Electronically Signed: Dimitris Valderrama DO at 18:21 EST Tel [phone], Se rvice support , CC: Boone Ch MD; Sangeetha Irvin DO Armorer Technician: Signed 14-Oct-2017 Office Visit Report Result: Comments: See Note; NOTES: [facility] [address] [place] [address]. [place] [address] OFFICE VISIT Date of Service: 10/12/17 MR#: [id number] Acct: [id number] Patient: IFEOMA ASHRAF Rep #: [id number] : 1965 Provider: Danica Pickering Age/Sex: 52/F Location: [facility] Status: Signed Comments Summary Comments: Single Chamber ICD Evaluation: Interrogation shows No VT/VF episodes since . No Alerts noted. Left pectoral pocket/incision w/o s/s of infection or erosion. Pt offers no cardiac complaints. Presenting rhythm shows Sinus Tachycardia @ 105 bpm. Left pectoral pocket/incision w/o s/s of infection or erosion. CHARGE ATTENDANT=0%. Battery longevity approx 2.9 mos. At device check in June device showed longevity of 14 mos. D/T longevity decreasing quickly pt scheduled for ICD generator el gilliam with Dr. Ahmadi on 11/10/17 @ [facility]. Lead impedances, sensing and pace/sense threshold remain stable. No parameter changes made. Counters cleared. Pt scheduled for o.v and teaching on 11/03/17 and ICD g enerator change on 11/10/17. Device Device Date Interviewed: 10/12/17 Follow- up Location: in office Interview Reason: routine follow up Brand Sales Manager: [employer] Name: Current VR Model: 1211-36Q ICD Sean l #: [id number] Implant Date: 10/10/09 Year(s): 8 Implant Physician: KARIN Patient Characteristics Patient Substrate: Nonischemic cardiomyopathy (dilated cardiomyopathy caused from Chemo drugs) Ejection fract ion %: 25 to 29 (02/2015) By: Echo Underlying rhythm: Sinus rhythm Pacemaker Dependent: No Device Characteristics Device: Single Chamber Type: Implantable defibrillator Remote Follow-Up: No Device Physi ramandeep Exam Yes Incision well healed Leads Lead #1 Brand Sales Manager Lead 1: [employer] Model Lead 1: 7121Q/58 Serial# Lead 1: [id number] Date Implanted Lead 1: 10/10/09 Position Lead 1: RV Diagnostics Pacing % RV Pacin Arrhythmias VF Episodes: 0 Fast VT Episodes: 0 Slow VT Episodes: 0 Non-Sust Episodes: 0 Measurements Battery Voltage (V): 2.48 Charge Time (Sec): 14.8 MIGUEL ÁNGEL Voltage: 2.45 Predicted Remaini ng Longevity (months or years): 2.9 mos RV Measurements Signal Amplitude (mV): 10.6 Impedance (Ohms): 450 Threshold Voltage: 0.75 @ PW(ms): 0.5 Shock Impedance (Ohms): 52 Tachy Settings VF Therapies VF Therapy Status On On On On On On Energy 25 36 36 36 36 36 Pathway ATP: During charging on FVT Therapies FVT Therapy Status On On On On On On VT Therapies FVT Therapy Status Off Off Off Off Off Off Comments: Willian Settings Willian Settings Pacemaker Mode VVI Lower Rate Limit (bpm) 40 Hysteresis Rate (bpm) Max Track Rate (bpm) Max Sensor Rate (bpm) Max AV Delay (msec) Max PV Delay (msec) Max PVARP (msec) Output/Sensing V/PW (ms) 2.0/0.5 Sensitivity RA RV LV Comments: Billing Codes ICD Device Billing: ICD Dev Prog Eval, Single Assessment AND Plan Problems 1. Implantable card ioverter-defibrillator (ICD) in situ Z95.810 2. Cardiomyopathy in other diseases classified elsewhere I43 Orders Orders: 10/13/17 1155 <Electronically signed by Danica Pickering > Date Danica Pickering 10/14/17 1230<Electronically signed by Sharyn KNOX> Mahnazigner Signature: Date (if applicable) Sharyn Turner CC: 15-Jun-2017 Abdomen WITH IV Contrast Result: Comments: See Note; NOTES: [facility] Imaging Services [address] [place] [address] Abdomen WITH IV Contrast MR#: [id number] Acct: [id number] Name: IFEOMA ASHRAF Rep #: [id number] : 1965 F 52 From: Carl Vincent MD PCP: Sangeetha Irvin DO Status: REG CLI Study: Abdomen WITH IV Contrast Date of Exam: 06/15/17 Exam# [id number] Ordering Dr: Analisa Conway MD STUDY: CT ABDOMEN WITH CONTRAST REASON FOR EXAM: Female, 52 years old. Elevated AFP markers. History of lymphoma. RADIATION DOSAGE (If Supplied By Facility): CTDIvol = ( 25.38 ) mGy, DLP = ( 861.3 ) mGycm T ECHNIQUE: Transaxial images were obtained post I.V. administration of 100 ml of Isovue 300 contrast, and with oral contrast. Sagittal and coronal images were reconstructed. Individualized dose optimiza tion techniques were used for this CT. COMPARISON: None. FINDINGS: The visualized lung bases are unremarkable. The visualized portions of the heart are within maya l limits. Normal liver. There are surgical clips in the gallbladder fossa consistent with a prior cholecystectomy. Normal spleen. Normal pancreas. Normal bilateral adrenal glands. Normal right kidney . Normal left kidney. Normal visualized stomach. Normal small intestine. Normal colon. There is non-visualization of the appendix. Normal abdominal aorta. Normal inferior vena cava. Normal retroperito neum. Normal abdominal wall. Normal osseous structures. CT/Abdomen WITH IV Contrast IMPRESSION: Normal enhanced CT of the abdomen. Electronical ly Signed: Carl Vincent MD at 16:47 EDT , Service support , CC: Analisa Conway MD; Sangeetha Irvin DO Armorer Technician: Signed 15-Jun-2017 Spine Cervical without Contras Result: Comments: See Note; NOTES: [facility] Imaging Services [address] [place] [address] Spine Cervical without Contras MR#: [id number] Acct: [id number] Name: IFEOMA ASHRAF p #: [id number] : 1965 F 52 From: Zev Mandujano MD PCP: Sangeetha Irvin DO Status: REG CLI Study: Spine Cervical without Contras Date of Exam: 06/15/17 Exam# [id number] Ordering Dr: Analisa Conway MD STUDY: CT CERVICAL SPINE WITHOUT CONTRAST REASON FOR EXAM: Female, 52 years old. Neck and arm pain. RADIATION DOSAGE (If Supplied By Facility): CTDIvol = ( 24.8 ) mGy, DLP = ( 472.15 ) mGycm TECHNI QUE: High resolution transaxial imaging was performed without contrast material. Sagittal and coronal images were reconstructed. Individualized dose optimization techniques were used for this CT. COMP ARISON: 02/11/2015. FINDINGS: Normal craniovertebral junction. Normal anterior atlantoaxial articulation. Normal odontoid process. Lytic lesion in the occipital bone are again seen unchanged since the prior examination. Normal cervical lordosis. There is endplate spondylosis at the level of C6-C7. The vertebral heights are within normal limits. There is no evidence of compression fracture deformity. C2-3: Normal endplates. Normal disc height and morphology. Normal central canal and intervertebral neuroforamina. C3-4: Normal endplates. Normal disc height and mor phology. Normal central canal and intervertebral neuroforamina. C4-5: Normal endplates. Normal disc height and morphology. Normal central canal and intervertebral neuroforamina. C5-6: Normal endplates . Normal disc height and morphology. Small posterior lateral degenerative spurs on the left side slightly indenting the left neural foramina. Normal central spinal canal and right neural foramina.. C6- 7: Small posterior degenerative spur. No evidence of central spinal canal or neural foraminal stenosis. C7-T1: Normal endplates. Normal disc height and morphology. Normal central canal and intervertebr al neuroforamina. Normal visualized soft tissue structures. CT/Spine Cervical without Contras IMPRESSION: Straightening of the cervical spine wh ich could be due to muscle spasm. Mild degenerative changes at the level of C5- C6. If symptoms persist, MRI of the cervical spine is recommended. Electronically Signed: Zev Mandujano MD at 2:41 EDT Tel , Service support , CC: Analisa Conway MD; Sangeetha Irvin DO Armorer Technician: Signed 10-Feb-2017 Spine Lumbar without Contrast Result: Comments: See Note; NOTES: [facility] Imaging Services [address] [place] [address] Verdana 4d Spine Lumbar without Contrast MR#: [id number] Acct: [id number] Name: MARIOWAQASMARISEL Pulido Rep #: [id number] : 1965 F 51 From: Brian Gill MD PCP: Sangeetha Irvin DO Status: REG CLI Study: Spine Lumbar without Contrast Date of Exam: 02/10/17 Exam# [id number] Ordering Dr: Analisa Carr i, MD STUDY: CT LUMBAR SPINE WITHOUT CONTRAST REASON FOR EXAM: Female, 51 years old. Back pain. Left leg pain. Prior history of thoracic surgery due to cancer. Non-Hodgkin's lymphoma, Burkitt's lymphoma, diabetes. RADIATION DOSAGE (If Supplied By Facility): CTDIvol = ( 30.00 ) mGy, DLP = ( 1004.41 ) mGycm TECHNIQUE: The patient was scanned in a multi detector CT scanner. High resolution tra nsaxial imaging was performed. Images were obtained from T12 to S3-4. Sagittal and coronal images were reconstructed. Individualized dose optimization techniques were used for this CT. COMPARISON: Non e FINDINGS: Normal lumbar lordosis. There is no substantial scoliosis. Normal vertebrae of the lumbar spine. L1-2: Mild spondylosis.. Normal disc height and morpho logy. Normal bilateral facet joints. Normal central canal and bilateral lateral recesses. Normal bilateral intervertebral neural foramina. L2-3: Mild spondylosis. Small posterior disc bulge.. Normal bi lateral facet joints. Normal central canal. Normal right and mild narrowing left lateral recesses. Normal bilateral intervertebral neural foramina. L3-4: Mild spondylosis. Small left posterolateral dis c bulge without visualized nerve impingement.. Normal bilateral facet joints. Normal central canal and bilateral lateral recesses. Normal bilateral intervertebral neural foramina. L4-5: Mild spondylosi s.. Normal disc height and morphology. Degenerative changes bilateral facet joints. Normal central canal and bilateral lateral recesses. Normal bilateral intervertebral neural foramina. L5-S1: Mild spo ndylosis. Posterior disc bulge, asymmetrically larger on the left with overlying left posterior osteophytes.. Degenerative changes bilateral facet joints. Normal central canal. Normal right and moderate narrowing left lateral recesses. Normal bilateral intervertebral neural foramina. Normal visualized paraspinous soft tissue structures. CT/Spin e Lumbar without Contrast IMPRESSION: Multilevel degenerative changes, as described above, with most prominent findings at the L5-S1 level. Electronically Signed: Brian Gill MD at 5:14 EDT , Service support , CC: Analisa Conway MD; Sangeetha Irvin DO Armorer Technician: Signed 20-Jan-2017 Liver Result: Comments: See Note; NOTES: [facility] Imaging Services [address] [place] [address] Zach 4d Liver MR#: [id number] Acct: [id number] Name: IFEOMA ASHRAF Rep #: [id number] : 1965 F 51 From: Vincent Bui DO PCP: Sangeetha Irvin DO Status: REG CLI Study: Liver Date of Exam: 01/20/17 Exam# [id number] Ordering Dr: Sangeetha Irvin DO STUDY: ABDOMINAL ULTRASOUND - RIGHT UPPER QU ADRANT REASON FOR VISIT: Female, 51 years old. Fatty liver TECHNIQUE: Ultrasound evaluation of the right upper quadrant was performed with real-time and static andrade-scale imaging. TECHNICAL QUALITY: Adequate. COMPARISON: None. FINDINGS: Liver: The liver measures 16.1 cm. There is fatty echogenicity of the liver. The bile ducts are within normal limits. There i s hepatic color flow. The direction of portal flow is hepatopetal. There is no demonstrated mass lesion. Gallbladder: Status post cholecystectomy. Common Bile Duct (C.B.D.): The common bile duct measu res 3.8 mm. Pancreas: Limited visualization of the pancreas. Right Kidney: Normal size of the right kidney. The right kidney measures 10.9 x 4.3 x 4.7 cm. Normal renal cortex. The right cortex measure s 1.3 cm. There is no demonstrated renal mass or cyst. There is no right hydronephrosis. US/Liver IMPRESSION: Fatty liver. Electronically Signed : Vincent Bui DO at 23:43 EDT Tel [phone], Service support , CC: Sangeetha Irvin DO Armorer Technician: Signed 20-Jan-2017 Thyroid Result: Comments: See Note; NOTES: [facility] Imaging Services [address] [place] [address] Verdana 4d Thyroid MR#: [id number] Acct: [id number] Name: IFEOMA ASHRAF Rep #: [id number] : 1965 F 51 From: Jin Rolon PCP: Sangeetha Irvin DO Status: REG CLI Study: Thyroid Date of Exam: 01/20/17 Exam# [id number] Ordering Dr: Sangeetha Irvin DO STUDY: THYROID ULTRASOUND REASON FOR EXAM: Female, 51 years old. Nodules. TECHNIQUE: Ultrasound evaluation of the thyroid was performed with real-time and static andrade-scale imaging. COMPARISON: December 19, 2015. FINDINGS: RIGHT LOBE: The right lobe of the thyroid gland measures 4.3 x 1.3 x 1.7 cm. There is a homogeneous echotexture. 2 cysts within the mid and inferior pole measuring 0.4 x 0.3 x 0.3 cm and 0.2 x 0.2 x 0.2 cm respectively. LEFT LOBE: The left lobe of the thyroid gland measures 4.8 x 1.8 x 0.9 cm. There is a homogeneous echotexture. Single solid mid pole nodule measuring 1.4 x 1.1 x 0.5 cm ISTHMUS: The isthmus measures 2 mm . The regional lymph nodes are normal. US/Thyroid IMPRESSION: The left lobe of the thyroid gland is mildly enlarged whereas on the prior exam the right lobe of the thyroid was mildly enlarged. Midpole solid nodule left lobe measuring 1.4 cm in greatest dimension minimally increased in size as compar ed to the prior study where the nodule measured 1.1 cm in greatest dimension. Subcentimeter cysts right lobe. Electronically Signed: Jin Rolon MD at 5:31 EDT , Service support , CC: Sangeetha Irvin DO Armorer Technician: Signed 17-Nov-2016 Dexa Bone Density Study (HP) Result: Comments: See Note; NOTES: [facility] Imaging Services [address] [place] [address] Verdana 4d Dexa Bone Density Study (HP) MR#: [id number] Acct: [id number] Name: COL HARPAL ASHRAF Rep #: [id number] : 1965 F 51 From: Prashant Delgadillo MD PCP: Sangeetha Irvin DO Status: REG CLI Study: Dexa Bone Density Study (HP) Date of Exam: 11/17/16 Exam# [id number] Ordering Dr: Sangeetha Irvin DO STUDY: DUAL ENERGY X-RAY ABSORPTIOMETRY / DXA REASON FOR EXAM: Female, 51 years old. The patient is postmenopausal. Loss of height. TECHNIQUE: Bone Mineral Density (BMD) measurements of claire mbar spine and bilateral hips were obtained. COMPARISON: None. FINDINGS: Lumbar Spine (L1-L4): g/cm2 (1.340) / T-score (1.3) / Z-score (1.9) Findings are suggestiv e of normal bone density with a low fracture risk. Left Femur Total: g/cm2 (1.094) / T-score (0.7) / Z-score (1.2) Left Femoral Neck: g/cm2 (1.000) / T-score (- 0.3) / Z-score (0.6) Right Femur Total: g /cm2 (1.087) / T-score (0.6) / Z-score (1.2) Right Femoral Neck: g/cm2 (0.990) / T-score (-0.3) / Z-score (0.6) HPBD/Dexa Bone Density Study (HP) IMPRESSION: The patient is considered normal as outlined below according to World Edvin Organization (WHO) criteria with a low fracture risk. Reference Information : The T-score is the number of standard deviations above or below the standard which is normal for young adults at their peak bone mineral density. The World Health Organization (WHO) interprets the T-s cores as follows: Above -1 Normal bone density Between -1 and -2.5 Osteopenia Equal to / or below -2.5 Osteoporosis As a practical clinical guideline, osteopenia may be graded as follows: Mild -1 thro ugh -1.5 Moderate -1.6 through -2.0 Severe -2.1 through -2.4 The Z-score is the number of standard deviations above or below age-matched controls. A Z-score of less than -1.5 would be considered abnorm al. References: 1. NIH Osteoporosis and Related Bone Diseases http://www.osteo.org 2. International Society for Clinical Densitometry http://www.iscd.org 3. National Osteoporosis Foundation http://www. nof.org Electronically Signed: Prashant Delgadillo MD at 10:52 EST Tel [phone], Service support [phone], CC: Sangeetha Irvin DO Armorer Technician: Signed 17-Nov-2016 SCREENING MAMM (CAD), BILAT Result: Comments: See Note; NOTES: [facility] Imaging Services [address] [place] [address] Verdana 4d SCREENING MAMM (CAD), BILAT MR#: [id number] Acct: [id number] Name: SALOME ASHRAF Rep #: [id number] : 1965 F 51 From: Prashant Delgadillo MD PCP: Sangeetha Irvin DO Status: [facility] CLI Study: SCREENING MAMM (CAD), BILAT Date of Exam: 11/17/16 Exam# [id number] Ordering Dr: Gary Irvin DO MAMMOGRAPHY - BILATERAL SCREENING REASON FOR EXAM: Female, 51 years old. Routine annual screening examination. PERTINENT HISTORY: Aunt with breast cancer. History of non-Hodgkin's lymphoma. TECHNIQUE: Digital bilateral breast ismael (3D mammographic acquisition) in the CC and MLO projections. 2-D mediolateral oblique (MLO) and craniocaudad (CC) views of both breasts were obtained. CAD: Full Field Digital Mammography with Computer Added Detection was performed. COMPARISON: Comparison is made with prior study dated August 14, 2015 and July 18, 2014. FINDINGS: Breast Composition: The breasts are almost entirely fatty. There are no dominant masses or suspicious calcifications. A pacemaker battery pack is seen in the left axillary region. No other significant abnormalities are identified. There has been no significant change since the prior study. HPBI/SCREENING MAMM (CAD), BILAT IMPRESSIO N: Stable bilateral screening mammogram. Yearly follow-up mammogram recommended. (A) ASSESSMENT CATEGORY: BIRADS Category 1: Negative. A letter regarding these resu lts will be sent to the patient by the facility within 30 days. Approximately 10% of breast cancers are not detected by mammography. A normal mammogram should not delay biopsy of a clinically suspiciou s abnormality. [id number] Electronically Signed: Prashant Delgadillo MD at 12:55 EST Tel [phone], Service support [phone], CC: Sangeetha Irvin DO Armorer Technician: Signed 17-Nov-2016 SCREENING MAMM (CAD), BILAT Result: Comments: See Note; NOTES: [facility] Imaging Services [address] [place] [address] Verdana 4d SCREENING MAMM (CAD), BILAT MR#: [id number] Acct: [id number] Name: SALOME ASHRAF Ashok Rep #: [id number] : 1965 F 51 From: Prashant Delgadillo MD PCP: Sangeetha Irvin DO Status: REG CLI Study: SCREENING MAMM (CAD), BILAT Date of Exam: 11/17/16 Exam# [id number] Ordering Dr: Gary Irvin DO ADDENDUM by Prashant Delgadillo MD on 11/17/16 at 1307 0015 HPBI/SCREENING MAMM (CAD), BILAT IMPRESSION: Stable bilateral screening mammogram. Yearly follow-up mammogram recommend ed. (A) ASSESSMENT CATEGORY: BIRADS Category 1: Negative. A letter regarding these results will be sent to the patient by the facility within 30 days. Approximatel y 10% of breast cancers are not detected by mammography. A normal mammogram should not delay biopsy of a clinically suspicious abnormality. [id number] Electronically Signed: Prashant Delgadillo MD at 13:07 EST Tel [phone], Service support [phone], 11/17/16 1316 Date cc: Sangeetha Irvin DO * Signed ADDENDUM by Prashant Delgadillo MD on 11/17/16 at 1307 ==== ADDENDUM MAMMOGRAPHY - BILATERAL SCREENING REASON FOR EXAM: Female, 51 years old. Routine annual screen ing examination. PERTINENT HISTORY: Aunt with breast cancer. History of non-Hodgkin's lymphoma. TECHNIQUE: Digital bilateral breast ismael (3D mammographic acquisition) in the CC and MLO projections. 2- D mediolateral oblique (MLO) and craniocaudad (CC) views of both breasts were obtained. CAD: Full Field Digital Mammography with Computer Added Detection was performed. COMPARISON: Comparison is made w ith prior study dated August 14, 2015 and July 18, 2014. FINDINGS: Breast Composition: The breasts are almost entirely fatty. There are no dominant masses or s uspicious calcifications. A pacemaker battery pack is seen in the left axillary region. No other significant abnormalities are identified. There has been no significant change since the prior study. __ 11/17/16 1307 Date cc: Sangeetha Irvin DO * Signed MAMMOGRAPHY - BILATERAL SCREENING REASON FOR EXAM: Female, 51 years old. Routine annual screening exam ination. PERTINENT HISTORY: Aunt with breast cancer. History of non-Hodgkin's lymphoma. TECHNIQUE: Digital bilateral breast ismael (3D mammographic acquisition) in the CC and MLO projections. 2-D mediol ateral oblique (MLO) and craniocaudad (CC) views of both breasts were obtained. CAD: Full Field Digital Mammography with Computer Added Detection was performed. COMPARISON: Comparison is made with prio r study dated August 14, 2015 and July 18, 2014. FINDINGS: Breast Composition: The breasts are almost entirely fatty. There are no dominant masses or suspiciou s calcifications. A pacemaker battery pack is seen in the left axillary region. No other significant abnormalities are identified. There has been no significant change since the prior study. HPBI/SCREENING MAMM (CAD), BILAT IMPRESSION: Stable bilateral screening mammogram. Yearly follow-up mammogram recommended. (A) ASSESSMENT CATEGORY: BIRADS Category 1: Negative. A letter regarding these results will be sent to the patient by the facility within 30 days. Approximately 10% of breast cancers are not dete cted by mammography. A normal mammogram should not delay biopsy of a clinically suspicious abnormality. [id number] Electronically Signed: Prashant Delgadillo MD at 12:55 EST Tel [phone], Ser vice support [phone], CC: Sangeetha Irvin DO Armorer Technician: Signed 19-Dec-2015 Liver Result: Comments: See Note; NOTES: [facility] Imaging Services [address] [place] [address] Verdana 4d Liver MR#: [id number] Acct: [id number] Name: IFEOMA ASHRAF Rep #: [id number] : 1965 F 50 From: Ziggy Santos MD PCP: Sangeetha Irvin DO Status: REG CLI Study: Liver Date of Exam: 12/19/15 Exam# [id number] Ordering Dr: Sangeetha Irvin DO STUDY: ABDOMINAL ULTRA SOUND - RIGHT UPPER QUADRANT REASON FOR VISIT: Female, 50 years old. Elevated LFTs TECHNIQUE: Ultrasound evaluation of the right upper quadrant was performed with real-time and static andrade-scale im aging. TECHNICAL QUALITY: Adequate. COMPARISON: 02/28/15 FINDINGS: Liver: The liver measures 17.5 cm. There is increased echogenicity consistent with fatty in filtration. The bile ducts are within normal limits. There is hepatic color flow. The direction of portal flow is hepatopetal. There is no demonstrated mass lesion. Gallbladder: The patient is statu s post cholecystectomy. Common Bile Duct (C.B.D.): The common bile duct measures 5.5 mm. Pancreas: Normal size of the head, body and tail of the pancreas. There is increased echogenicity of the abdi creas. There is no demonstrated pancreatic mass or cyst. Right Kidney: Normal size of the right kidney. The right kidney measures 12.1 x 4.1 x 5.0 cm. Normal renal cortex. The right cortex measures 1.6 cm. There is no demonstrated renal mass or cyst. There is no right hydronephrosis. IMPRESSION: Hepatomegaly with fatty infiltration, no discrete lesion. No significant interval change Previous cholecystectomy Nonspecific echogenic pancreas Electronically Signed: Kenn Santos MD at 10:55 EDT Tel , Service support [phone], CC: Sangeetha Irvin DO Armorer Technician: Signed 19-Dec-2015 Thyroid Result: Comments: See Note; NOTES: [facility] Imaging Services [address] [place] [address] Verdana 4d Thyroid MR#: [id number] Acct: [id number] Name: IFEOMA ASHRAF ep #: [id number] : 1965 F 50 From: Ziggy Santos MD PCP: Sangeetha Irvin DO Status: REG CLI Study: Thyroid Date of Exam: 12/19/15 Exam# [id number] Ordering Dr: Sangeetha Irvin DO STUDY: THYROID ULT RASOUND REASON FOR EXAM: Female, 50 years old. Nodule TECHNIQUE: Ultrasound evaluation of the thyroid was performed with real-time and static andrade-scale imaging. COMPARISON: 07/18/14 FINDINGS: RIGHT LOBE: The right lobe of the thyroid gland measures 4.9 x 1.6 x 1.2 cm. There is a homogeneous echotexture. There is a 4 x 3 x 3 mm solid nodule unchanged f rom the previous study. LEFT LOBE: The left lobe of the thyroid gland measures 4.5 x 1.5 x 1.1 cm. There is a homogeneous echotexture. There is a 1.1 x 0.7 x 0.6 cm nodule which has increased slight ly in size since the previous study. ISTHMUS: The isthmus measures 2 mm. The regional lymph nodes are normal. IMPRESSION: Stable size of thyroid gland. Stabl e subcentimeter nodule in the right lobe. Slightly enlarging nodule in the left lobe. Electronically Signed: Kenn Santos MD at 10:56 EDT Tel , Service support , CC: Sangeetha Irvin DO Armorer Technician: Signed 14-Aug-2015 Bilat Scrn Digital AND CAD Result: Comments: See Note; NOTES: [facility] Imaging Services [address] [place] [address] Verdana 4d Bilat Scrn Digital AND CAD MR#: [id number] Acct: [id number] Name: IFEOMA ASHRAF Rep #: [id number] : 1965 F 50 From: Prashant Delgadillo MD PCP: Sangeetha Irvin DO Status: REG CLI Study: Bilat Scrn Digital AND CAD Date of Exam: 08/14/15 Exam# [id number] Order ing Dr: Sangeetha Irvin DO MAMMOGRAPHY - BILATERAL SCREENING REASON FOR EXAM: Female, 50 years old. Routine annual screening examination. PERTINENT HISTORY: Grandmother with breast cancer. Non-Hodg kin's lymphoma. TECHNIQUE: Digital examination. Mediolateral oblique (MLO) and craniocaudad (CC) views of both breasts were obtained. CAD: CAD was performed on this study. COMPARISON: Comparison i s made with prior study dated July 18, 2014 and June 15, 2013. FINDINGS: Breast Composition: The breasts are almost entirely fatty. There are no domina nt masses or suspicious calcifications. No other significant abnormalities are identified. There has been no significant change since the prior study. IMPRESSIO N: Stable bilateral screening mammogram. Yearly follow-up recommended. (A) ASSESSMENT CATEGORY: BIRADS Category 1: Negative. A letter regarding these results wi ll be sent to the patient by the facility within 30 days. Approximately 10% of breast cancers are not detected by mammography. A normal mammogram should not delay biopsy of a clinically suspicious abnormality. Electronically Signed: Prashant Delgadillo MD at 10:49 EST Tel [phone], Service support [phone], CC: Sangeetha Irvin DO Armorer Technician: Signed 10-Mar-2015 Emergency Department Summary Result: Comments: See Note; NOTES: [facility] Medical Records Department [address] [place] [address] Emergency Department Summary MR#: [id number] Acct: [id number] Name: IFEOMA RASMUSSEN Rep #: [id number] : 1965 49 From: Mayito Roldan DO PCP: Sangeetha Irvin DO Status: DEP ER DATE OF SERVICE: 02/28/2015 Addendum This is an addendum to initial dictation by Dr. Mario dozier, who fully evaluated the patient. The patient came in with right upper quadrant pain. Care of the patient turned over to me at 7:30 a.m. awaiting ultrasound results and discharge to home. Her ult rasound of the right upper quadrant showed a normal distended gallbladder. She did have gallstones within the gallbladder and some sludge within the lumen. There is no evidence of bile ducts obstruct ion, normal thickness of the gallbladder wall. There was no pericholecystic fluid. The patient on repeat exam at 8:25 a.m. is feeling improved. She still has some mild discomfort to the right upper qu adrant. She has had no further vomiting. At this point, she will be discharged to home. The patient was written for Percocet and Zofran per Dr. Lopez and was advised to follow up with general surgeon if her symptoms persist to potentially have her gallbladder out electively. The patient advised to stick to a clear liquid diet today and then slowly advance with a bland diet and avoid spicy, greasy foods. The patient discharged to home. DIAGNOSIS: Right upper quadrant abdominal pain secondary to biliary colic. Discharged in stable condition. Instructed to return if worsening pain, fever, vom iting or condition worsens in any way. Mayito Roldan DO T: NTS JOB: [id number] 03/10/15 2329 <Electronically signed by Mayito Roldan DO> Date Rosious Grecocarmelo DAVIS CC: Sangeetha Irvin DO Date Dictated: 02/28/15824 Date Transcribed: 02/28/15824 Armorer Technician: Signed 02-Mar-2015 Emergency Department Summary Result: Comments: See Note; NOTES: [facility] Medical Records Department [address] [place] [address] Emergency Department Summary MR#: [id number] Acct: [id number] Name: IFEOMA RASMUSSEN Rep #: [id number] : 1965 49 From: Alejandro Lopez DO PCP: Sangeetha Irvin DO Status: DEP ER DATE OF SERVICE: 02/28/2015 CHIEF COMPLAINT: Abdominal pain. HISTORY OF PRESENT ILLN ESS: A very pleasant 49-year-old female states that about 3 hours prior to arrival she developed a right upper quadrant pain radiating slightly to her back and resulting in nausea and vomiting. The p atient states that she found out last year that she had gallstones on an ultrasound. 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 She is a patient of Dr. Irvin. PHYSICAL EXAMINATION: GENERAL: On physical exam, the patient appears uncomfort able. LUNGS: Lung sounds are clear and equal. ABDOMEN: She has tenderness and guarding in the right upper quadrant. EMERGENCY DEPARTMENT COURSE: CBC, chemistries, liver, lipase showed glucose of 17 9. The patient received morphine, Zofran and fluids. She feels significantly improved. This is most likely biliary colic. Given the patient's medical problems, we are going to ahead and obtain a right upper quadrant ultrasound to check disease progression. She knows that she most likely will need to be seen at a tertiary care center as an outpatient for surgery. The patient has plans to go to [facility] on General. I will give her local surgeon's name if she wants to speak with them or she can certainly also speak with Dr. Irvin. CLINICAL IMPRESSION: Biliary colic. Alejandro Lopez DO T: ROCK JOB: [id number] 03/02/1543 <Electronically signed by Alejandro Lopez DO> Date Alejandro Lopez DO CC: Sangeetha Irvin DO Date Dictated: 718 Date Transcribed: 02/28/15718 Armorer Technician: Signed 28-Feb-2015 Discharge Instruction Result: Comments: See Note; NOTES: [facility] Medical Records Department [address] [place] [address] Discharge Instruction 02/28/15638 MR#: [id number] Acct: [id number] Name: IFEOMA ASHRAF Rep #: [id number] : 1965 49 From: Alejandro Lopez DO PCP: Sangeetha Irvin DO Status: REG ER ED Disposition - Plan for ED Patient: Disposition: Home Chief Complaint: Abd P ain Instructions: ED GALLSTONES w/ Colic (Confirmed) Prescriptions: Oxycodone HCl/Acetaminophen [Percocet 5/325] 1 - 2 tablet PO Q4H PRN PRN #20 tablet PRN Reason: Pain Ondansetron [Zofran Odt] 4 m g PO Q8H PRN PRN #10 tablet PRN Reason: Nausea Referrals: Sangeetha Irvin DO [Primary Care Provider] - Adela Garcia MD [STAFF PHYSICIAN] - (call for follow up) What to do if you have Problems For any increased pain, shortness of breath, bleeding, nausea or vomiting, chest pain, or any unexpected problems, contact your doctor. Call [facility] ([phone]) or report to the closest ergency Room. Call 911 if necessary. 02/28/15639 <Electronically signed by Alejandro Lopez DO> Date Alejandro Lopez DO Cosign er Signature (If Indicated): Date CC: Sangeetha Irvin DO 28-Feb-2015 Gallbladder Result: Comments: See Note; NOTES: [facility] Imaging Services [address] [place] [address] Ultrasound Report MR#: [id number] Acct: [id number] Name: IFEOMA ASHRAF Rep #: [id number] : 1965 F 49 From: Prashant Delgadillo MD PCP: Sangeetha Irvin DO Status: REG ER Study: Gallbladder Date of Exam: 02/28/15 Exam# [id number] Ordering Dr: Alejandro Lopez DO STUDY: ABDOM INAL ULTRASOUND - RIGHT UPPER QUADRANT REASON FOR VISIT: Female, 49 years old. Biliary colic. TECHNIQUE: Ultrasound evaluation of the right upper quadrant was performed with real-time and static gr ay-scale imaging. TECHNICAL QUALITY: Adequate. COMPARISON: Comparison is made with prior examination dated July 18, 2014. FINDINGS: Liver: The liver dante ures 17.3 cm. There is increased echogenicity consistent with fatty infiltration. The bile ducts are within normal limits. There is hepatic color flow. The direction of portal flow is hepatopetal. Th ere is no demonstrated mass lesion. Gallbladder: Normal distended gallbladder. The gallbladder wall measures 2.0 mm. There is a positive sonographic Echevarria's sign. There is no pericholecystic fluid. There are multiple echogenic structures within the gallbladder, consistent with multiple gallstones. A small amount of sludge is seen in the gallbladder lumen. Common Bile Duct (C.B.D.): The common bile duct measures 2.4 mm. Pancreas: There is nonvisualization of the pancreas. Right Kidney: Normal size of the right kidney. The right kidney measures 10.7 cm x 4.2 cm x 4.9 cm. Normal renal cor babak. The right cortex measures 1.3 cm. There is no demonstrated renal mass or cyst. There is no right hydronephrosis. IMPRESSION: Multiple gallstones with sludg e in the gallbladder lumen. Fatty infiltration of the liver. Electronically Signed: Prashant Delgadillo MD at 8:15 EDT Tel [phone], Service support [phone], CC: Alejandro Lopez DO; Sangeetha Irvin DO Armorer Technician: Signed 11-Feb-2015 Spine Cervical without Contras Result: Comments: See Note; NOTES: [facility] Imaging Services [address] [place], [place] [address] [address] CAT Scan Report MR#: [id number] Acct: [id number] Name: IFEOMA ASRHAF Rep #: [id number] : 1965 F 49 From: Prashant Delgadillo MD PCP: Sangeetha Irvin DO Status: REG CLI Study: Spine Cervical without Contras Date of Exam: 02/11/15 Exam# [id number] Ordering Dr: Analisa Conway MD STUDY: CT CERVICAL SPINE WITHOUT CONTRAST REASON FOR EXAM: Female, 49 years old. Chronic neck pain and left arm pain. The patient has a history of non- Hodgkin's lymphoma treated by chemotherapy and radiation therapy. RADIATION DOSAGE (If Supplied By Facility): CTDIvol = ( 42.66 ) mGy, DLP = ( 907.05 ) mGycm TECHNIQUE: High resolution transaxial imaging was performed without contrast mat erial. Sagittal and coronal images were reconstructed. COMPARISON: Comparison is made with prior study dated December 19, 2009. FINDINGS: Normal craniovertebral ju nction. Stable lytic lesions are seen in the middle table of the right occipital bone. The lateral lesions extend to the cortical surface. These are stable. Normal anterior atlantoaxial articulation. Normal odontoid process. There is straightening of the normal cervical lordosis. Normal vertebral bodies and posterior osseous elements. C2-3: Normal endplates. Normal disc height and morphology. Normal central canal and intervertebral neuroforamina. C3-4: Normal endplates. Normal disc height and morphology. Normal central canal and intervertebral neuroforamina. C4-5: Normal endplates. Nor mal disc height and morphology. Normal central canal and intervertebral neuroforamina. C5-6: Normal endplates. Normal disc height and morphology. Normal central canal and intervertebral neuroforamin a. C6-7: Mild degree of disc space narrowing at the C6-C7 level. No significant stenosis is seen. C7-T1: Normal endplates. Normal disc height and morphology. Normal central canal and intervertebra l neuroforamina. Normal visualized soft tissue structures. IMPRESSION: Stable examination. Electronically Signed: Prashant Delgadillo MD at 9:49 EDT Tel [phone], Service support [phone], CC: Analisa Conway MD; Sangeetha Irvin DO Armorer Technician: Signed 18-Jul-2014 Bilat Scrn Digital & CAD Result: Comments: See Note; NOTES: [facility] Imaging Services [address] [place] [address] Breast Imaging Report MR#: [id number] Acct: [id number] Name: IFEOMA ASHRAF Rep # : [id number] : 1965 F 49 From: Prashant Delgadillo MD PCP: Sangeetha Irvin DO Status: REG CLI Exam# [id number] Ordering Dr: Sangeetha Irvin DO MAMMOGRAPHY - BILATERAL SCREENING REASON FOR EXAM: Female, 49 years old. Routine annual screening examination. PERTINENT HISTORY: Aunt with breast cancer. TECHNIQUE: Digital examination. Mediolateral oblique (MLO) and craniocaudad (CC) views of britney th breasts were obtained. CAD: CAD was performed on this study. COMPARISON: Comparison is made with prior study dated June 15, 2013 and January 27, 2012. FINDI NGS: Breast Composition: The breasts are almost entirely fatty. There are no dominant masses or suspicious calcifications. No other significant abnormalities are identified. There has been no sign ificant change since the prior study. IMPRESSION: Stable bilateral screening mammogram. Yearly follow-up recommended. (A) A SSESSMENT CATEGORY: BIRADS Category 2: Benign finding(s). A letter regarding these results will be sent to the patient by the facility within 30 days. Approximately 10% of breast cancers are not det ected by mammography. A normal mammogram should not delay biopsy of a clinically suspicious abnormality. Electronically Signed: Prashant Delgadillo MD at 8:36 EDT Tel [phone], [place] support [phone], CC: Sangeetha Irvin DO Armorer Technician: Signed 18-Jul-2014 Liver Result: Comments: See Note; NOTES: [facility] Imaging Services [address] [place] [address] Ultrasound Report MR#: [id number] Acct: [id number] Name: IFEOMA ASHRAF Rep #: [id number] : 1965 F 49 From: Prashant Delgadillo MD PCP: Sangeetha Irvin DO Status: REG CLI Study: Liver Date of Exam: 07/18/14 Exam# [id number] Ordering Dr: Sangeetha Irvin DO STUDY: ABDOMINAL ULTR ASOUND - RIGHT UPPER QUADRANT REASON FOR VISIT: Female, 49 years old. Elevated liver function tests. TECHNIQUE: Ultrasound evaluation of the right upper quadrant was performed with real-time and st atic andrade-scale imaging. TECHNICAL QUALITY: Limited. Examination limited due to obesity. COMPARISON: Comparison is made with prior study dated January 03, 2013. FINDINGS: Liver: The liver measures 13.3 cm. There is increased echogenicity consistent with fatty infiltration. The bile ducts are within normal limits. There is hepatic color flow. The direction o f portal flow is hepatopetal. There is no demonstrated mass lesion. Gallbladder: Normal distended gallbladder. The gallbladder wall measures 1.9 mm. There is a negative sonographic Echevarria's sign. Th ere is no pericholecystic fluid. There are multiple echogenic structures within the gallbladder, consistent with multiple gallstones. A small amount of sludge is seen within the gallbladder lumen. Common Bile Duct (C.B.D.): The common bile duct measures 3.8 mm. Pancreas: Normal size of the head, body and tail of the pancreas. There is increased echogenicity of the pancreas. There is no demonst rated pancreatic mass or cyst. Right Kidney: Normal size of the right kidney. The right kidney measures 10.1 cm x 4.4 cm x 4.6 cm. Normal renal cortex. The right cortex measures 0.9 cm. There is no demonstrated renal mass or cyst. There is no right hydronephrosis. IMPRESSION: Fatty infiltration of the liver. Gallstones. Electronically Signed: Prashant Delgadillo MD at 9:34 EDT Tel [phone], Service support [phone], CC: Sangeetha Irvin DO Armorer Technician: Signed 18-Jul-2014 Thyroid Result: Comments: See Note; NOTES: [facility] Imaging Services [address] [place] [id number] Ultrasound Report MR#: [id number] Acct: [id number] Name: IFEOMA ASHRAF Rep #: [id number] : 1965 F 49 From: Prashant Delgadillo MD PCP: Sangeetha Irvin DO Status: REG CLI Study: Thyroid Date of Exam: 07/18/14 Exam# [id number] Ordering Dr: Sangeetha Irvin DO STUDY: THYROID ULTR ASOUND REASON FOR EXAM: Female, 49 years old. Thyroid nodules. TECHNIQUE: Ultrasound evaluation of the thyroid was performed with real-time and static andrade-scale imaging. COMPARISON: Comparison i s made with prior study dated June 15, 2013. FINDINGS: RIGHT LOBE: The right lobe of the thyroid gland measures 4.9 cm x 1.1 cm x 0.7 cm. There is a homoge neous echotexture. The previously seen well-defined hypoechoic solid nodule in the midportion of the right lobe has decreased in size. It presently measures 4 mm x 3 mm x 2 mm. LEFT LOBE: The left l obe of the thyroid gland measures 4.2 cm x 1.3 cm x 0.9 cm. There is a homogeneous echotexture. There is a 6 mm x 5 mm x 7 mm well-defined hypoechoic nodule in the midpole. This has slightly increased in size as compared to prior study. ISTHMUS: The isthmus measures 2.0 mm. The regional lymph nodes are normal. IMPRESSION: The sub-centimeters nodule in th e right lobe of the thyroid has decreased in size and the subcentimeter nodule in the left lobe is mildly increased in size. Electronically Signed: Prashant Delgadillo MD at 8:41 EDT T el [phone], Service support [phone], CC: Sangeetha Irvin DO Armorer Technician: Signed 05-Feb-2014 Brain/Head W/WO Contrast Result: Comments: See Note; NOTES: [facility] Imaging Services [address] [place] [address] CAT Scan Report MR#: [id number] Acct: [id number] Name: IFEOMA ASHRAF Rep #: [id number] : 1965 F 48 From: Prashant Delgadillo MD PCP: Sangeetha Irvin DO Status: REG CLI Study: Brain/Head W/WO Contrast Date of Exam: 02/05/14 Exam# [id number] Ordering Dr: Fast, Sangeetha DO STUD Y: CT BRAIN WITH AND WITHOUT CONTRAST REASON FOR EXAM: Female, 48 years old. 3 month history of headaches. The patient has a history of Burkitt's lymphoma. RADIATION DOSAGE (If Supplied By Facility ): CTDIvol = ( 54.71 ) mGy, DLP = ( 1600.08 ) mGycm TECHNIQUE: Transaxial CT imaging of the brain was performed pre and post contrast administration. The examination was performed with intravenous administration of 100CC ml of Isovue 300 contrast material. COMPARISON: Comparison is made with prior study dated October 13, 2010. FINDINGS: Normal soft tissue structures. Normal calvarium. Normal size ventricles and extra-axial spaces for the patient's age. Normal white matter tracts of the cerebral hemispheres. Normal basal ganglia and thalami. Normal b rainstem. Normal cerebellum. There is no intracranial hemorrhage. There are no findings of an acute ischemic infarction. There is calcification of the vertebral arteries. Normal visualized paranasa l sinuses. IMPRESSION: Normal unenhanced and enhanced CT scan of the brain. Electronically Signed: Prashant Delgadillo MD at 9:19 EDT Tel [phone], Service support [phone], CC: Sangeetha Irvin DO Armorer Technician: Signed Immunization Name Dates Details Influenza (3 years and up) on: 10-Jul-2008 Comments: injection given in left deltoid, pt tolerated welllot # [id number] Influenza (3 years and up) on: 09-Jul-2009 Comments: Lot #[id number] deltoidDose0.5mlgiven by Juventino Nye LPN Family History Unknown Family Member Name Dates Details Brother 1 Comments: living with dm, htn Status: Active Family Members In General Comments: 2 aunts with cancer- one with breast cancer, maternal great grandmother- cancer// fathers side heart issues Status: Active Father Comments: living with dm, htn, stroke x2, high chol- carotid endarterectomy Status: Active Mother Comments: living with depression, kidney issues Status: Active Social History Name Dates Details Caffeine Use Status: Active No Drug Use Status: Active Non Drinker/No Alcohol Use Status: Active Non Smoker/No Tobacco Use Comments: updated 06-04-11 Status: Active Tobacco use: Never smoker. Status: Active Tobacco use: Never smoker. Comments: updated Status: Active Smoking Status Name Dates Details Never smoker Vital Signs Date Test Result Details :32 Temperature 97.5 f Comments: Method: Temporal Pulse 108 /min Comments: Pattern: Regular Respiration Rate 16 /min Comments: Pattern: Unlabored O2 SAT 96 % Comments: Room air BP Systolic 104 mm[Hg] Comments: Patient Position: Sitting; Cuff Location: Left Arm; Cuff Size: Standard BP Diastolic 70 mm[Hg] Comments: Patient Position: Sitting; Cuff Location: Left Arm; Cuff Size: Standard Weight 192 lb Height 65 in Body Mass Index Calculated 31.95 kg/m2 Body Surface Area Calculated 1.94 m2 :17 Temperature 97.4 f Comments: Method: Temporal Pulse 98 /min Comments: Pattern: Regular Respiration Rate 16 /min Comments: Pattern: Unlabored O2 SAT 98 % Comments: Room air BP Systolic 122 mm[Hg] Comments: Patient Position: Sitting; Cuff Location: Left Arm; Cuff Size: Standard BP Diastolic 70 mm[Hg] Comments: Patient Position: Sitting; Cuff Location: Left Arm; Cuff Size: Standard Weight 192 lb Height 65 in Body Mass Index Calculated 31.95 kg/m2 Body Surface Area Calculated 1.94 m2 :57 Temperature 97.6 f Comments: Method: Temporal Pulse 103 /min Comments: Pattern: Regular Respiration Rate 16 /min Comments: Pattern: Unlabored O2 SAT 98 % Comments: Room air BP Systolic 122 mm[Hg] Comments: Patient Position: Sitting; Cuff Location: Left Arm; Cuff Size: Standard BP Diastolic 74 mm[Hg] Comments: Patient Position: Sitting; Cuff Location: Left Arm; Cuff Size: Standard Weight 185 lb Height 65 in Body Mass Index Calculated 30.79 kg/m2 Body Surface Area Calculated 1.91 m2 :50 Temperature 96.8 f Comments: Method: Temporal Pulse 72 /min Comments: Pattern: Regular Respiration Rate 16 /min Comments: Pattern: Unlabored O2 SAT 98 % Comments: Room air BP Systolic 104 mm[Hg] Comments: Patient Position: Sitting; Cuff Location: Left Arm; Cuff Size: Standard BP Diastolic 74 mm[Hg] Comments: Patient Position: Sitting; Cuff Location: Left Arm; Cuff Size: Standard Weight 209 lb Height 65 in Body Mass Index Calculated 34.78 kg/m2 Body Surface Area Calculated 2.02 m2 [id number] Temperature 97.9 f Comments: Method: Temporal Pulse 118 /min Comments: Pattern: Regular Respiration Rate 20 /min Comments: Pattern: Unlabored O2 SAT 98 % Comments: Room air BP Systolic 120 mm[Hg] Comments: Patient Position: Sitting; Cuff Location: Left Arm; Cuff Size: Standard BP Diastolic 78 mm[Hg] Comments: Patient Position: Sitting; Cuff Location: Left Arm; Cuff Size: Standard Weight 209 lb Height 65 in Body Mass Index Calculated 34.78 kg/m2 Body Surface Area Calculated 2.02 m2 :08 Temperature 97.3 f Comments: Method: Temporal Pulse 110 /min Comments: Pattern: Regular Respiration Rate 16 /min Comments: Pattern: Unlabored BP Systolic 100 mm[Hg] Comments: Patient Position: Sitting; Cuff Location: Left Arm; Cuff Size: Standard BP Diastolic 70 mm[Hg] Comments: Patient Position: Sitting; Cuff Location: Left Arm; Cuff Size: Standard Weight 209 lb Height 65 in Body Mass Index Calculated 34.78 kg/m2 Body Surface Area Calculated 2.02 m2 :48 Temperature 98.2 f Comments: Method: Temporal Pulse 96 /min Comments: Pattern: Regular Respiration Rate 16 /min Comments: Pattern: Unlabored O2 SAT 97 % Comments: Room air BP Systolic 116 mm[Hg] Comments: Patient Position: Sitting; Cuff Location: Left Arm; Cuff Size: Standard BP Diastolic 76 mm[Hg] Comments: Patient Position: Sitting; Cuff Location: Left Arm; Cuff Size: Standard Weight 208 lb Height 65 in Body Mass Index Calculated 34.61 kg/m2 Body Surface Area Calculated 2.01 m2 :34 Temperature 97.2 f Comments: Method: Temporal Pulse 92 /min Comments: Pattern: Regular Respiration Rate 16 /min Comments: Pattern: Unlabored BP Systolic 104 mm[Hg] Comments: Patient Position: Sitting; Cuff Location: Left Arm; Cuff Size: Standard BP Diastolic 70 mm[Hg] Comments: Patient Position: Sitting; Cuff Location: Left Arm; Cuff Size: Standard Weight 204 lb Height 65 in Body Mass Index Calculated 33.95 kg/m2 Body Surface Area Calculated 1.99 m2 :36 Temperature 97.2 f Comments: Method: Temporal Pulse 104 /min Comments: Pattern: Regular Respiration Rate 16 /min Comments: Pattern: Unlabored O2 SAT 96 % Comments: Room air BP Systolic 94 mm[Hg] Comments: Patient Position: Sitting; Cuff Location: Left Arm; Cuff Size: Large BP Diastolic 62 mm[Hg] Comments: Patient Position: Sitting; Cuff Location: Left Arm; Cuff Size: Large Weight 217 lb Height 65 in Body Mass Index Calculated 36.11 kg/m2 Body Surface Area Calculated 2.05 m2 :07 Temperature 97.6 f Comments: Method: Temporal Respiration Rate 16 /min Comments: Pattern: Unlabored BP Systolic 122 mm[Hg] Comments: Patient Position: Sitting; Cuff Location: Left Arm; Cuff Size: Standard BP Diastolic 70 mm[Hg] Comments: Patient Position: Sitting; Cuff Location: Left Arm; Cuff Size: Standard Weight 220 lb Height 65 in Body Mass Index Calculated 36.61 kg/m2 Body Surface Area Calculated 2.06 m2 :45 Temperature 96.6 f Comments: Method: Temporal Pulse 120 /min Comments: Pattern: Regular Respiration Rate 16 /min Comments: Pattern: Unlabored O2 SAT 96 % Comments: Room air BP Systolic 100 mm[Hg] Comments: Patient Position: Sitting; Cuff Location: Left Arm; Cuff Size: Large BP Diastolic 76 mm[Hg] Comments: Patient Position: Sitting; Cuff Location: Left Arm; Cuff Size: Large Weight 220 lb Height 65 in Body Mass Index Calculated 36.61 kg/m2 Body Surface Area Calculated 2.06 m2 :11 Temperature 97.6 f Comments: Method: Temporal Pulse 102 /min Comments: Pattern: Regular Respiration Rate 15 /min Comments: Pattern: Unlabored O2 SAT 97 % Comments: Room air BP Systolic 102 mm[Hg] Comments: Patient Position: Sitting; Cuff Location: Left Arm; Cuff Size: Large BP Diastolic 74 mm[Hg] Comments: Patient Position: Sitting; Cuff Location: Left Arm; Cuff Size: Large Weight 229 lb Height 65 in Body Mass Index Calculated 38.11 kg/m2 Body Surface Area Calculated 2.1 m2 :15 Temperature 98.1 f Comments: Method: Tympanic Pulse 95 /min Comments: Pattern: Regular Respiration Rate 18 /min Comments: Pattern: Unlabored O2 SAT 98 % Comments: Room air BP Systolic 116 mm[Hg] Comments: Patient Position: Sitting; Cuff Location: Left Arm; Cuff Size: Standard BP Diastolic 74 mm[Hg] Comments: Patient Position: Sitting; Cuff Location: Left Arm; Cuff Size: Standard Weight 235.375 lb Height 65 in Body Mass Index Calculated 39.17 kg/m2 Body Surface Area Calculated 2.12 m2 :02 Temperature 97.2 f Pulse 100 /min Comments: Pattern: Regular Respiration Rate 16 /min Comments: Pattern: Unlabored O2 SAT 97 % Comments: Room air BP Systolic 118 mm[Hg] Comments: Patient Position: Sitting; Cuff Location: Left Arm; Cuff Size: Standard BP Diastolic 76 mm[Hg] Comments: Patient Position: Sitting; Cuff Location: Left Arm; Cuff Size: Standard Weight 234.375 lb Height 65 in Body Mass Index Calculated 39 kg/m2 Body Surface Area Calculated 2.12 m2 :47 Temperature 98.1 f Comments: Method: Temporal Pulse 94 /min Comments: Pattern: Regular Respiration Rate 16 /min Comments: Pattern: Unlabored O2 SAT 97 % Comments: Room air BP Systolic 122 mm[Hg] Comments: Patient Position: Sitting; Cuff Location: Left Arm; Cuff Size: Large BP Diastolic 76 mm[Hg] Comments: Patient Position: Sitting; Cuff Location: Left Arm; Cuff Size: Large Weight 240 lb Height 65 in Body Mass Index Calculated 39.94 kg/m2 Body Surface Area Calculated 2.14 m2 :15 Temperature 97.8 f Comments: Method: Oral Pulse 84 /min Comments: Pattern: Regular Respiration Rate 18 /min Comments: Pattern: Unlabored BP Systolic 92 mm[Hg] Comments: Patient Position: Sitting; Cuff Location: Left Arm; Cuff Size: Large BP Diastolic 64 mm[Hg] Comments: Patient Position: Sitting; Cuff Location: Left Arm; Cuff Size: Large Weight 240 lb Height 65 in Body Mass Index Calculated 39.94 kg/m2 Body Surface Area Calculated 2.14 m2 :46 Pulse 106 /min Comments: Pattern: Regular Respiration Rate 18 /min Comments: Pattern: Unlabored O2 SAT 97 % Comments: Room air BP Systolic 100 mm[Hg] Comments: Patient Position: Sitting; Cuff Location: Left Arm; Cuff Size: Standard BP Diastolic 76 mm[Hg] Comments: Patient Position: Sitting; Cuff Location: Left Arm; Cuff Size: Standard Weight 243 lb Height 65 in Body Mass Index Calculated 40.44 kg/m2 Body Surface Area Calculated 2.15 m2 :31 Temperature 98.6 f Comments: Method: Oral Pulse 125 /min Comments: Pattern: Regular Respiration Rate 16 /min Comments: Pattern: Unlabored BP Systolic 102 mm[Hg] Comments: Patient Position: Sitting; Cuff Location: Left Arm; Cuff Size: Standard BP Diastolic 78 mm[Hg] Comments: Patient Position: Sitting; Cuff Location: Left Arm; Cuff Size: Standard Weight 251 lb Height 65 in Body Mass Index Calculated 41.77 kg/m2 Body Surface Area Calculated 2.18 m2 :44 Temperature 97.8 f Comments: Method: Oral Pulse 102 /min Comments: Pattern: Regular Respiration Rate 16 /min Comments: Pattern: Unlabored BP Systolic 98 mm[Hg] Comments: Patient Position: Sitting; Cuff Location: Left Arm; Cuff Size: Large BP Diastolic 72 mm[Hg] Comments: Patient Position: Sitting; Cuff Location: Left Arm; Cuff Size: Large Weight 259 lb Height 65 in Body Mass Index Calculated 43.1 kg/m2 Body Surface Area Calculated 2.21 m2 :11 Temperature 98.4 f Comments: Method: Oral Pulse 110 /min Comments: Pattern: Regular Respiration Rate 18 /min Comments: Pattern: Unlabored BP Systolic 124 mm[Hg] Comments: Patient Position: Sitting; Cuff Location: Left Arm; Cuff Size: Standard BP Diastolic 70 mm[Hg] Comments: Patient Position: Sitting; Cuff Location: Left Arm; Cuff Size: Standard Weight 261.125 lb :20 Temperature 97.1 f Comments: Method: Oral Pulse 91 /min Comments: Pattern: Regular Respiration Rate 16 /min Comments: Pattern: Unlabored BP Systolic 126 mm[Hg] Comments: Patient Position: Sitting; Cuff Location: Left Arm; Cuff Size: Standard BP Diastolic 80 mm[Hg] Comments: Patient Position: Sitting; Cuff Location: Left Arm; Cuff Size: Standard Weight 261.125 lb :23 Temperature 98.9 f Comments: Method: Oral Pulse 102 /min Comments: Pattern: Regular Respiration Rate 16 /min O2 SAT 98 % Comments: Room air BP Systolic 106 mm[Hg] Comments: Patient Position: Sitting; Cuff Location: Left Arm; Cuff Size: Standard BP Diastolic 70 mm[Hg] Comments: Patient Position: Sitting; Cuff Location: Left Arm; Cuff Size: Standard Weight 249.125 lb :19 Temperature 97.2 f Comments: Method: Temporal Pulse 96 /min Comments: Pattern: Regular Respiration Rate 16 /min Comments: Pattern: Unlabored O2 SAT 99 % Comments: Room air BP Systolic 100 mm[Hg] Comments: Patient Position: Sitting; Cuff Location: Left Arm; Cuff Size: Standard BP Diastolic 66 mm[Hg] Comments: Patient Position: Sitting; Cuff Location: Left Arm; Cuff Size: Standard Weight 223 lb :10 Temperature 98.5 f Comments: Method: Oral Pulse 70 /min Comments: Pattern: Regular Respiration Rate 16 /min BP Systolic 84 mm[Hg] Comments: Patient Position: Sitting BP Diastolic 62 mm[Hg] Comments: Patient Position: Sitting Weight 223 lb :47 Temperature 96.5 f Pulse 68 /min Comments: Pattern: Regular Respiration Rate 18 /min Comments: Pattern: Unlabored BP Systolic 92 mm[Hg] Comments: Patient Position: Sitting; Cuff Location: Left Arm; Cuff Size: Large BP Diastolic 74 mm[Hg] Comments: Patient Position: Sitting; Cuff Location: Left Arm; Cuff Size: Large Weight 233 lb Height 65 in Body Mass Index Calculated 38.77 kg/m2 Body Surface Area Calculated 2.11 m2 :02 Temperature 97.4 f Comments: Method: Oral Pulse 74 /min Comments: Pattern: Regular Respiration Rate 18 /min O2 SAT 98 % Comments: Room air BP Systolic 112 mm[Hg] Comments: Patient Position: Sitting; Cuff Location: Left Arm; Cuff Size: Standard BP Diastolic 64 mm[Hg] Comments: Patient Position: Sitting; Cuff Location: Left Arm; Cuff Size: Standard Weight 252 lb Height 65 in Body Mass Index Calculated 41.93 kg/m2 Body Surface Area Calculated 2.18 m2 :50 Temperature 97.9 f Comments: Method: Oral Pulse 82 /min Comments: Pattern: Regular Respiration Rate 18 /min BP Systolic 108 mm[Hg] Comments: Patient Position: Sitting; Cuff Location: Left Arm; Cuff Size: Standard BP Diastolic 66 mm[Hg] Comments: Patient Position: Sitting; Cuff Location: Left Arm; Cuff Size: Standard Weight 252 lb Height 65 in Body Mass Index Calculated 41.93 kg/m2 Body Surface Area Calculated 2.18 m2 :42 Temperature 97 f Pulse 90 /min Comments: Pattern: Regular Respiration Rate 18 /min Comments: Pattern: Unlabored BP Systolic 80 mm[Hg] Comments: Patient Position: Sitting; Cuff Location: Left Arm; Cuff Size: Large BP Diastolic 62 mm[Hg] Comments: Patient Position: Sitting; Cuff Location: Left Arm; Cuff Size: Large Weight 252 lb Height 65 in Body Mass Index Calculated 41.93 kg/m2 Body Surface Area Calculated 2.18 m2 :05 Temperature 97.2 f Comments: Method: Oral Pulse 60 /min Comments: Pattern: Regular Respiration Rate 18 /min Comments: Pattern: Unlabored BP Systolic 118 mm[Hg] Comments: Patient Position: Sitting; Cuff Location: Right Arm; Cuff Size: Large BP Diastolic 62 mm[Hg] Comments: Patient Position: Sitting; Cuff Location: Right Arm; Cuff Size: Large Weight 272 lb Height 65 in Body Mass Index Calculated 45.26 kg/m2 Body Surface Area Calculated 2.25 m2 :06 Temperature 100.9 f Comments: Method: Oral Pulse 80 /min Comments: Pattern: Regular Respiration Rate 16 /min Comments: Pattern: Unlabored BP Systolic 110 mm[Hg] Comments: Patient Position: Sitting; Cuff Location: Left Arm; Cuff Size: Large BP Diastolic 60 mm[Hg] Comments: Patient Position: Sitting; Cuff Location: Left Arm; Cuff Size: Large Weight 272 lb Height 65 in Body Mass Index Calculated 45.26 kg/m2 Body Surface Area Calculated 2.25 m2 :58 Temperature 98.1 f Pulse 94 /min Comments: Pattern: Regular Respiration Rate 18 /min Comments: Pattern: Unlabored BP Systolic 96 mm[Hg] Comments: Patient Position: Sitting; Cuff Location: Left Arm; Cuff Size: Large BP Diastolic 70 mm[Hg] Comments: Patient Position: Sitting; Cuff Location: Left Arm; Cuff Size: Large Weight 272 lb Height 65 in Body Mass Index Calculated 45.26 kg/m2 Body Surface Area Calculated 2.25 m2 :18 Temperature 99.1 f Pulse 116 /min Comments: Pattern: Regular Respiration Rate 18 /min Comments: Pattern: Unlabored O2 SAT 98 % Comments: Room air BP Systolic 90 mm[Hg] Comments: Patient Position: Sitting; Cuff Location: Left Arm; Cuff Size: Large BP Diastolic 68 mm[Hg] Comments: Patient Position: Sitting; Cuff Location: Left Arm; Cuff Size: Large Weight 286 lb Height 65 in Body Mass Index Calculated 47.59 kg/m2 Body Surface Area Calculated 2.3 m2 :25 Temperature 97 f Pulse 96 /min Comments: Pattern: Regular Respiration Rate 18 /min Comments: Pattern: Unlabored BP Systolic 104 mm[Hg] Comments: Patient Position: Sitting; Cuff Location: Left Arm; Cuff Size: Large BP Diastolic 82 mm[Hg] Comments: Patient Position: Sitting; Cuff Location: Left Arm; Cuff Size: Large Weight 286 lb Height 65 in Body Mass Index Calculated 47.59 kg/m2 Body Surface Area Calculated 2.3 m2 :04 Temperature 98.1 f Pulse 84 /min Comments: Pattern: Regular Respiration Rate 18 /min Comments: Pattern: Unlabored BP Systolic 92 mm[Hg] Comments: Patient Position: Sitting; Cuff Location: Left Arm; Cuff Size: Large BP Diastolic 70 mm[Hg] Comments: Patient Position: Sitting; Cuff Location: Left Arm; Cuff Size: Large Weight 265 lb Height 65 in Body Mass Index Calculated 44.1 kg/m2 Body Surface Area Calculated 2.23 m2 :25 Temperature 97.9 f Pulse 92 /min Comments: Pattern: Regular Respiration Rate 18 /min Comments: Pattern: Unlabored BP Systolic 102 mm[Hg] Comments: Patient Position: Sitting; Cuff Location: Left Arm; Cuff Size: Standard BP Diastolic 70 mm[Hg] Comments: Patient Position: Sitting; Cuff Location: Left Arm; Cuff Size: Standard Weight 247 lb Height 65 in Body Mass Index Calculated 41.1 kg/m2 Body Surface Area Calculated 2.16 m2 :26 Temperature 97.4 f Comments: Method: Oral Pulse 88 /min Comments: Pattern: Regular Respiration Rate 20 /min Comments: Pattern: Unlabored BP Systolic 124 mm[Hg] Comments: Patient Position: Sitting; Cuff Location: Left Arm; Cuff Size: Large BP Diastolic 62 mm[Hg] Comments: Patient Position: Sitting; Cuff Location: Left Arm; Cuff Size: Large Weight 257 lb Height 65 in Body Mass Index Calculated 42.77 kg/m2 Body Surface Area Calculated 2.2 m2 :20 Temperature 98.4 f Pulse 104 /min Comments: Pattern: Regular Respiration Rate 18 /min Comments: Pattern: Unlabored BP Systolic 90 mm[Hg] Comments: Patient Position: Sitting; Cuff Location: Left Arm; Cuff Size: Large BP Diastolic 72 mm[Hg] Comments: Patient Position: Sitting; Cuff Location: Left Arm; Cuff Size: Large Weight 261 lb Height 65 in Body Mass Index Calculated 43.43 kg/m2 Body Surface Area Calculated 2.22 m2 :10 Temperature 98.1 f Pulse 88 /min Comments: Pattern: Regular Respiration Rate 16 /min Comments: Pattern: Unlabored BP Systolic 104 mm[Hg] Comments: Patient Position: Sitting; Cuff Location: Left Arm; Cuff Size: Large BP Diastolic 78 mm[Hg] Comments: Patient Position: Sitting; Cuff Location: Left Arm; Cuff Size: Large Weight 263 lb Height 65 in Body Mass Index Calculated 43.77 kg/m2 Body Surface Area Calculated 2.22 m2 :14 Temperature 98 f Comments: Method: Oral Pulse 64 /min Comments: Pattern: Regular Respiration Rate 20 /min Comments: Pattern: Unlabored BP Systolic 108 mm[Hg] Comments: Patient Position: Sitting; Cuff Location: Left Arm; Cuff Size: Standard BP Diastolic 74 mm[Hg] Comments: Patient Position: Sitting; Cuff Location: Left Arm; Cuff Size: Standard Weight 283 lb Height 65 in Body Mass Index Calculated 47.09 kg/m2 Body Surface Area Calculated 2.29 m2 :40 Temperature 97.5 f Comments: Method: Oral Pulse 80 /min Comments: Pattern: Regular Respiration Rate 16 /min BP Systolic 124 mm[Hg] Comments: Patient Position: Sitting; Cuff Location: Left Arm; Cuff Size: Standard BP Diastolic 74 mm[Hg] Comments: Patient Position: Sitting; Cuff Location: Left Arm; Cuff Size: Standard Weight 283 lb Height 65 in Body Mass Index Calculated 47.09 kg/m2 Body Surface Area Calculated 2.29 m2 :17 Temperature 96.9 f Pulse 100 /min Comments: Pattern: Regular Respiration Rate 18 /min Comments: Pattern: Unlabored BP Systolic 94 mm[Hg] Comments: Patient Position: Sitting; Cuff Location: Left Arm; Cuff Size: Large BP Diastolic 68 mm[Hg] Comments: Patient Position: Sitting; Cuff Location: Left Arm; Cuff Size: Large Weight 283 lb Height 65 in Body Mass Index Calculated 47.09 kg/m2 Body Surface Area Calculated 2.29 m2 :08 Temperature 98.2 f Comments: Method: Oral Pulse 64 /min Comments: Pattern: Regular Respiration Rate 20 /min Comments: Pattern: Unlabored BP Systolic 118 mm[Hg] Comments: Patient Position: Sitting; Cuff Location: Left Arm; Cuff Size: Large BP Diastolic 78 mm[Hg] Comments: Patient Position: Sitting; Cuff Location: Left Arm; Cuff Size: Large Weight 289 lb Height 65 in Body Mass Index Calculated 48.09 kg/m2 Body Surface Area Calculated 2.31 m2 :31 Temperature 98.2 f Comments: Method: Oral Pulse 84 /min Comments: Pattern: Regular Respiration Rate 14 /min Comments: Pattern: Unlabored BP Systolic 102 mm[Hg] Comments: Patient Position: Sitting; Cuff Location: Left Arm; Cuff Size: Standard BP Diastolic 72 mm[Hg] Comments: Patient Position: Sitting; Cuff Location: Left Arm; Cuff Size: Standard Weight 289 lb Height 65 in Body Mass Index Calculated 48.09 kg/m2 Body Surface Area Calculated 2.31 m2 :29 Temperature 97.2 f Pulse 88 /min Comments: Pattern: Regular Respiration Rate 16 /min Comments: Pattern: Unlabored BP Systolic 96 mm[Hg] Comments: Patient Position: Sitting; Cuff Location: Left Arm; Cuff Size: Large BP Diastolic 62 mm[Hg] Comments: Patient Position: Sitting; Cuff Location: Left Arm; Cuff Size: Large Weight 289 lb Height 65 in Body Mass Index Calculated 48.09 kg/m2 Body Surface Area Calculated 2.31 m2 :53 Temperature 96.9 f Pulse 112 /min Comments: Pattern: Regular Respiration Rate 18 /min Comments: Pattern: Unlabored BP Systolic 112 mm[Hg] Comments: Patient Position: Sitting; Cuff Location: Left Arm; Cuff Size: Standard BP Diastolic 82 mm[Hg] Comments: Patient Position: Sitting; Cuff Location: Left Arm; Cuff Size: Standard Weight 293 lb :17 Temperature 95.8 f Pulse 100 /min Comments: Pattern: Regular Respiration Rate 18 /min Comments: Pattern: Unlabored BP Systolic 118 mm[Hg] Comments: Patient Position: Sitting; Cuff Location: Left Arm; Cuff Size: Standard BP Diastolic 86 mm[Hg] Comments: Patient Position: Sitting; Cuff Location: Left Arm; Cuff Size: Standard Weight 295 lb :39 Temperature 96.1 f Pulse 120 /min Comments: Pattern: Regular Respiration Rate 20 /min Comments: Pattern: Unlabored BP Systolic 100 mm[Hg] Comments: Patient Position: Sitting; Cuff Location: Left Arm; Cuff Size: Standard BP Diastolic 80 mm[Hg] Comments: Patient Position: Sitting; Cuff Location: Left Arm; Cuff Size: Standard Weight 297 lb :01 Temperature 96.9 f Pulse 108 /min Comments: Pattern: Regular Respiration Rate 18 /min Comments: Pattern: Unlabored BP Systolic 108 mm[Hg] Comments: Patient Position: Sitting; Cuff Location: Left Arm; Cuff Size: Standard BP Diastolic 78 mm[Hg] Comments: Patient Position: Sitting; Cuff Location: Left Arm; Cuff Size: Standard :33 Temperature 98.4 f Pulse 96 /min Comments: Pattern: Regular Respiration Rate 18 /min Comments: Pattern: Unlabored BP Systolic 96 mm[Hg] Comments: Patient Position: Sitting; Cuff Location: Left Arm; Cuff Size: Large BP Diastolic 62 mm[Hg] Comments: Patient Position: Sitting; Cuff Location: Left Arm; Cuff Size: Large Weight 285 lb :05 Pulse 92 /min Comments: Pattern: Regular Respiration Rate 18 /min Comments: Pattern: Unlabored BP Systolic 96 mm[Hg] Comments: Patient Position: Sitting; Cuff Location: Left Arm; Cuff Size: Large BP Diastolic 80 mm[Hg] Comments: Patient Position: Sitting; Cuff Location: Left Arm; Cuff Size: Large :57 Temperature 97.3 f Pulse 96 /min Comments: Pattern: Regular Respiration Rate 18 /min Comments: Pattern: Unlabored BP Systolic 92 mm[Hg] Comments: Patient Position: Sitting; Cuff Location: Left Arm; Cuff Size: Large BP Diastolic 68 mm[Hg] Comments: Patient Position: Sitting; Cuff Location: Left Arm; Cuff Size: Large :43 Temperature 97 f Pulse 112 /min Comments: Pattern: Regular Respiration Rate 18 /min Comments: Pattern: Unlabored BP Systolic 98 mm[Hg] Comments: Patient Position: Sitting; Cuff Location: Right Arm; Cuff Size: Standard BP Diastolic 78 mm[Hg] Comments: Patient Position: Sitting; Cuff Location: Right Arm; Cuff Size: Standard Weight 290 lb :41 Temperature 96.6 f Pulse 120 /min Comments: Pattern: Regular Respiration Rate 18 /min Comments: Pattern: Unlabored BP Systolic 108 mm[Hg] Comments: Patient Position: Sitting; Cuff Location: Left Arm; Cuff Size: Large BP Diastolic 80 mm[Hg] Comments: Patient Position: Sitting; Cuff Location: Left Arm; Cuff Size: Large Weight 285 lb :46 Temperature 97.3 f Comments: Method: Undefined Pulse 100 /min Comments: Pattern: Regular Respiration Rate 18 /min Comments: Pattern: Undefined BP Systolic 100 mm[Hg] Comments: Patient Position: Sitting; Cuff Location: Left Arm; Cuff Size: Large BP Diastolic 80 mm[Hg] Comments: Patient Position: Sitting; Cuff Location: Left Arm; Cuff Size: Large Weight 298 lb Height 0 in Head Circumference 0.00 cm :44 Temperature 99.2 f Comments: Method: Undefined Pulse 100 /min Comments: Pattern: Regular Respiration Rate 18 /min Comments: Pattern: Undefined BP Systolic 100 mm[Hg] Comments: Patient Position: Sitting; Cuff Location: Right Arm; Cuff Size: Large BP Diastolic 80 mm[Hg] Comments: Patient Position: Sitting; Cuff Location: Right Arm; Cuff Size: Large Weight 314 lb Height 0 in Head Circumference 0.00 cm :04 Temperature 97.7 f Comments: Method: Undefined Pulse 108 /min Comments: Pattern: Regular Respiration Rate 18 /min Comments: Pattern: Undefined BP Systolic 124 mm[Hg] Comments: Patient Position: Sitting; Cuff Location: Left Arm; Cuff Size: Standard BP Diastolic 82 mm[Hg] Comments: Patient Position: Sitting; Cuff Location: Left Arm; Cuff Size: Standard Weight 313 lb Height 0 in Head Circumference 0.00 cm :29 Temperature 97.4 f Comments: Method: Oral Pulse 96 /min Comments: Pattern: Regular Respiration Rate 18 /min Comments: Pattern: Unlabored BP Systolic 114 mm[Hg] Comments: Patient Position: Sitting; Cuff Location: Left Arm; Cuff Size: Large BP Diastolic 76 mm[Hg] Comments: Patient Position: Sitting; Cuff Location: Left Arm; Cuff Size: Large Weight 309 lb Height 0 in Head Circumference 0.00 cm :13 Temperature 98 f Comments: Method: Undefined Pulse 112 /min Comments: Pattern: Regular Respiration Rate 18 /min Comments: Pattern: Undefined BP Systolic 104 mm[Hg] Comments: Patient Position: Sitting; Cuff Location: Right Arm; Cuff Size: Large BP Diastolic 80 mm[Hg] Comments: Patient Position: Sitting; Cuff Location: Right Arm; Cuff Size: Large Weight 309 lb Height 0 in Head Circumference 0.00 cm :30 Temperature 97.3 f Comments: Method: Undefined Pulse 108 /min Comments: Pattern: Regular Respiration Rate 18 /min Comments: Pattern: Undefined BP Systolic 104 mm[Hg] Comments: Patient Position: Sitting; Cuff Location: Left Arm; Cuff Size: Large BP Diastolic 76 mm[Hg] Comments: Patient Position: Sitting; Cuff Location: Left Arm; Cuff Size: Large Weight 0 lb Height 0 in Head Circumference 0.00 cm :46 Pulse 146 /min Comments: Pattern: Irregular Respiration Rate 16 /min Comments: Pattern: Unlabored O2 SAT 97 % Comments: Room air BP Systolic 128 mm[Hg] Comments: Patient Position: Sitting; Cuff Location: Left Arm; Cuff Size: Large BP Diastolic 84 mm[Hg] Comments: Patient Position: Sitting; Cuff Location: Left Arm; Cuff Size: Large Weight 304.5 lb Height 66 in Body Mass Index Calculated 49.15 kg/m2 Body Surface Area Calculated 2.39 m2 Head Circumference 0.00 cm :06 BP Systolic 116 mm[Hg] Comments: Patient Position: Sitting; Cuff Location: Undefined; Cuff Size: Large BP Diastolic 78 mm[Hg] Comments: Patient Position: Sitting; Cuff Location: Undefined; Cuff Size: Large Weight 0 lb Height 0 in Head Circumference 0.00 cm :29 Temperature 97.3 f Comments: Method: Undefined Pulse 104 /min Comments: Pattern: Regular Respiration Rate 18 /min Comments: Pattern: Undefined BP Systolic 134 mm[Hg] Comments: Patient Position: Sitting; Cuff Location: Right Arm; Cuff Size: Standard BP Diastolic 104 mm[Hg] Comments: Patient Position: Sitting; Cuff Location: Right Arm; Cuff Size: Standard Weight 0 lb Height 0 in Head Circumference 0.00 cm :06 Temperature 98.4 f Comments: Method: Undefined Pulse 108 /min Comments: Pattern: Regular Respiration Rate 18 /min Comments: Pattern: Undefined BP Systolic 128 mm[Hg] Comments: Patient Position: Sitting; Cuff Location: Right Arm; Cuff Size: Standard BP Diastolic 88 mm[Hg] Comments: Patient Position: Sitting; Cuff Location: Right Arm; Cuff Size: Standard Weight 0 lb Height 0 in Head Circumference 0.00 cm :26 Pulse 100 /min Comments: Pattern: Regular Respiration Rate 16 /min Comments: Pattern: Unlabored BP Systolic 124 mm[Hg] Comments: Patient Position: Sitting; Cuff Location: Left Arm; Cuff Size: Standard BP Diastolic 76 mm[Hg] Comments: Patient Position: Sitting; Cuff Location: Left Arm; Cuff Size: Standard Weight 288.0625 lb Height 65 in Body Mass Index Calculated 47.94 kg/m2 Body Surface Area Calculated 2.31 m2 Head Circumference 0.00 cm :22 Temperature 98.9 f Comments: Method: Undefined Pulse 108 /min Comments: Pattern: Regular Respiration Rate 18 /min Comments: Pattern: Undefined BP Systolic 110 mm[Hg] Comments: Patient Position: Sitting; Cuff Location: Right Arm; Cuff Size: Large BP Diastolic 80 mm[Hg] Comments: Patient Position: Sitting; Cuff Location: Right Arm; Cuff Size: Large Weight 0 lb Height 0 in Head Circumference 0.00 cm :24 Temperature 99.4 f Comments: Method: Undefined Pulse 68 /min Comments: Pattern: Regular Respiration Rate 16 /min Comments: Pattern: Undefined BP Systolic 112 mm[Hg] Comments: Patient Position: Sitting; Cuff Location: Right Arm; Cuff Size: Standard BP Diastolic 70 mm[Hg] Comments: Patient Position: Sitting; Cuff Location: Right Arm; Cuff Size: Standard Weight 264 lb Height 0 in Head Circumference 0.00 cm :50 Temperature 98.2 f Comments: Method: Undefined Pulse 124 /min Comments: Pattern: Regular Respiration Rate 18 /min Comments: Pattern: Undefined BP Systolic 100 mm[Hg] Comments: Patient Position: Sitting; Cuff Location: Left Arm; Cuff Size: Standard BP Diastolic 78 mm[Hg] Comments: Patient Position: Sitting; Cuff Location: Left Arm; Cuff Size: Standard Weight 249 lb Height 0 in Head Circumference 0.00 cm :57 Temperature 98.2 f Comments: Method: Undefined Pulse 116 /min Comments: Pattern: Regular Respiration Rate 18 /min Comments: Pattern: Undefined BP Systolic 90 mm[Hg] Comments: Patient Position: Standing; Cuff Location: Right Arm; Cuff Size: Large BP Diastolic 72 mm[Hg] Comments: Patient Position: Standing; Cuff Location: Right Arm; Cuff Size: Large Weight 0 lb Height 0 in Head Circumference 0.00 cm :17 Temperature 97 f Comments: Method: Oral Pulse 96 /min Comments: Pattern: Regular Respiration Rate 16 /min Comments: Pattern: Unlabored BP Systolic 104 mm[Hg] Comments: Patient Position: Sitting; Cuff Location: Left Arm; Cuff Size: Standard BP Diastolic 74 mm[Hg] Comments: Patient Position: Sitting; Cuff Location: Left Arm; Cuff Size: Standard Weight 304.5625 lb Height 0 in Head Circumference 0.00 cm :15 Temperature 98.3 f Comments: Method: Oral Pulse 108 /min Comments: Pattern: Regular Respiration Rate 16 /min Comments: Pattern: Unlabored BP Systolic 102 mm[Hg] Comments: Patient Position: Sitting; Cuff Location: Right Arm; Cuff Size: Large BP Diastolic 78 mm[Hg] Comments: Patient Position: Sitting; Cuff Location: Right Arm; Cuff Size: Large Weight 311.5 lb Height 0 in Head Circumference 0.00 cm :29 Temperature 97.1 f Comments: Method: Oral Pulse 88 /min Comments: Pattern: Regular Respiration Rate 20 /min Comments: Pattern: Unlabored BP Systolic 116 mm[Hg] Comments: Patient Position: Sitting; Cuff Location: Right Arm; Cuff Size: Standard BP Diastolic 78 mm[Hg] Comments: Patient Position: Sitting; Cuff Location: Right Arm; Cuff Size: Standard Weight 0 lb Height 0 in Head Circumference 0.00 cm :27 Temperature 98 f Comments: Method: Oral Pulse 96 /min Comments: Pattern: Regular Respiration Rate 20 /min Comments: Pattern: Unlabored BP Systolic 128 mm[Hg] Comments: Patient Position: Sitting; Cuff Location: Right Arm; Cuff Size: Large BP Diastolic 92 mm[Hg] Comments: Patient Position: Sitting; Cuff Location: Right Arm; Cuff Size: Large Weight 327 lb Height 0 in Head Circumference 0.00 cm Results Date Description Value Details :22 CBC W/Diff, Automated Comments: BMP TO [facility].CBCD, TSH, B12 TO DR. SANGEETHA IRVIN.[facility] [id number] [facility] [place], [place], [id number] Absolute Lymph 1.16 {X10_3/ul} (Normal) Range: 0.83-4.51 Absolute Neut 6.1 {X10_3/uL} (Normal) Range: 2.0-7.7 IM GRAN % 0.100 % (Normal) Range: 0.0-0.9 Comments: IG% - Immature Granulocytes (promyelocytes, myelocytes andmetamyelocytes) > 1% indicates that a LEFT SHIFT is Present. BASO% 0.5 % (Normal) Range: 0-1 EO% 3.9 % (Normal) Range: 0-5 MONO% 5.1 % (Normal) Range: 0-10 LY% 14.5 % (Abnormal) Range: 19-41 NEUT% 75.9 % (Abnormal) Range: 47-70 MPV 10.1 fL (Normal) Range: 6.2-12.0 PLT 284 K/mm3 (Normal) Range: 150-450 RDW SD 52.0 fL (Abnormal) Range: 35.1-43.9 RDW CV 14.3 % (Normal) Range: 11.6-14.6 MCHC 31.6 {g/gl} (Abnormal) Range: 32-36 MCH 32.0 pg (Normal) Range: 27.0-32.0 MCV 101.4 fL (Abnormal) Range: 81-99 HCT 37.4 % (Normal) Range: 37-47 HGB 11.8 g/dL (Abnormal) Range: 12.0-15.0 RBC 3.69 {M/mm3} (Abnormal) Range: 4.2-5.4 WBC 8.0 K/mm3 (Normal) Range: 4.4-11.0 [id number] Vitamin B12 659 pg/mL (Normal) Comments: BMP TO [facility].CBCD, TSH, B12 TO DR. SANGEETHA IRVIN.[facility] [id number] [place], [place], [id number] Range: 211-911 [id number]:20 Basic Metabolic Profile (BMP) Comments: BMP TO [facility].CBCD, TSH, B12 TO DR. SANGEETHA IRVIN.[facility] [id number] [place], [address] GAP 9 (Normal) Range: 5-15 CO2 27.0 mmol/L (Normal) Range: 21.0-32.0 CL 98 mmol/L (Normal) Range: 98-107 K 3.6 mmol/L (Normal) Range: 3.5-5.1 NA 134 mmol/L (Abnormal) Range: 136-145 CA 9.3 mg/dL (Normal) Range: 8.5-10.1 BUN/CRE 18.5 {RATIO} (Normal) Range: 10-20 EST GFR - AA 88 mL/min (Normal) Comments: GFR Calc EST GFR 73 mL/min (Normal) Comments: Non- GFR Calc CREAT,SERUM 0.86 mg/dL (Normal) Range: 0.55-1.02 Comments: The validity of the calculated GFR AND GFRAA in patients over70 years has not been determined. Clinical correlation isessential. BUN 16 mg/dL (Normal) Range: 7-18 GLU 198 mg/dL (Abnormal) Range: 74-106 Comments: Fasting Glucose result greater than or equal to 126 mg/dLsuggests DIABETES MELLITUS per A.D.A. criteria.Please note revised GLUCOSE reference range himyfzkyn40/02/2018. [id number] Thyroid Stim Hormone (TSH) Comments: BMP TO [facility].CBCD, TSH, B12 TO DR. SANGEETHA IVRIN.[facility] [id number] [facility] [address] [place], [place], [id number] TSH 4.09 {uIU/mL} (Abnormal) Range: 0.358-3.74 [id number] Basic Metabolic Profile (BMP) Comments: [facility] [id number] [facility]. [place], [place], [id number] GAP 7 (Normal) Range: 5-15 CO2 30.0 mmol/L (Normal) Range: 21.0-32.0 CL 103 mmol/L (Normal) Range: 98-107 K 4.1 mmol/L (Normal) Range: 3.5-5.1 NA 140 mmol/L (Normal) Range: 136-145 CA 9.5 mg/dL (Normal) Range: 8.5-10.1 BUN/CRE 16.6 {RATIO} (Normal) Range: 10-20 EST GFR - AA 84 mL/min (Normal) Comments: GFR Calc EST GFR 69 mL/min (Normal) Comments: Non- GFR Calc CREAT,SERUM 0.90 mg/dL (Normal) Range: 0.55-1.02 Comments: The validity of the calculated GFR AND GFRAA in patients over70 years has not been determined. Clinical correlation isessential. BUN 15 mg/dL (Normal) Range: 7-18 GLU 257 mg/dL (Abnormal) Range: 74-106 Comments: Glucose result greater than or equal to 200 mg/dLsuggests DIABETES MELLITUS per A.D.A. criteria.Please note revised GLUCOSE reference range kircvzrkf33/02/2018. [id number] BNP,B-Type NATRIURETIC PEPTIDE Comments: [facility] [id number] [facility] [address] [place], [place], [address] B-TYPE JACKIE PEP 892.7 pg/mL (Abnormal) Range: 0-100 [id number] CBC W/Diff, Automated Comments: [facility] [id number] [facility] [address] [place], [place], [address] Absolute Lymph 1.23 {X10_3/ul} (Normal) Range: 0.83-4.51 Absolute Neut 5.1 {X10_3/uL} (Normal) Range: 2.0-7.7 IM GRAN % 0.100 % (Normal) Range: 0.0-0.9 Comments: IG% - Immature Granulocytes (promyelocytes, myelocytes andmetamyelocytes) > 1% indicates that a LEFT SHIFT is Present. BASO% 0.7 % (Normal) Range: 0-1 EO% 3.9 % (Normal) Range: 0-5 MONO% 6.3 % (Normal) Range: 0-10 LY% 17.2 % (Abnormal) Range: 19-41 NEUT% 71.8 % (Abnormal) Range: 47-70 MPV 10.3 fL (Normal) Range: 6.2-12.0 PLT 301 K/mm3 (Normal) Range: 150-450 RDW SD 52.2 fL (Abnormal) Range: 35.1-43.9 RDW CV 14.1 % (Normal) Range: 11.6-14.6 MCHC 31.8 {g/gl} (Abnormal) Range: 32-36 MCH 33.2 pg (Abnormal) Range: 27.0-32.0 MCV 104.6 fL (Abnormal) Range: 81-99 HCT 36.5 % (Abnormal) Range: 37-47 HGB 11.6 g/dL (Abnormal) Range: 12.0-15.0 RBC 3.49 {M/mm3} (Abnormal) Range: 4.2-5.4 WBC 7.2 K/mm3 (Normal) Range: 4.4-11.0 [id number] CBC W/Diff, Automated Comments: Reason for Laboratory Test .[facility] [id number] [place], [place], [id number] Absolute Lymph 0.85 {X10_3/ul} (Normal) Range: 0.83-4.51 Absolute Neut 3.6 {X10_3/uL} (Normal) Range: 2.0-7.7 IM GRAN % 0.200 % (Normal) Range: 0.0-0.9 Comments: IG% - Immature Granulocytes (promyelocytes, myelocytes andmetamyelocytes) > 1% indicates that a LEFT SHIFT is Present. BASO% 0.7 % (Normal) Range: 0-1 EO% 8.1 % (Abnormal) Range: 0-5 MONO% 12.3 % (Abnormal) Range: 0-10 LY% 15.0 % (Abnormal) Range: 19-41 NEUT% 63.7 % (Normal) Range: 47-70 MPV 9.4 fL (Normal) Range: 6.2-12.0 PLT 257 K/mm3 (Normal) Range: 150-450 RDW SD 59.5 fL (Abnormal) Range: 35.1-43.9 RDW CV 15.6 % (Abnormal) Range: 11.6-14.6 MCHC 31.9 {g/gl} (Abnormal) Range: 32-36 MCH 33.5 pg (Abnormal) Range: 27.0-32.0 MCV 105.0 fL (Abnormal) Range: 81-99 HCT 35.7 % (Abnormal) Range: 37-47 HGB 11.4 g/dL (Abnormal) Range: 12.0-15.0 RBC 3.40 {M/mm3} (Abnormal) Range: 4.2-5.4 WBC 5.7 K/mm3 (Normal) Range: 4.4-11.0 [id number] Comprehensive Metabolic Profil Comments: Reason for Laboratory Test .Serial Specimen #1, #2 or #3? [facility] [id number] [place], [address] GAP 8 (Normal) Range: 5-15 CO2 28.0 mmol/L (Normal) Range: 21.0-32.0 CL 104 mmol/L (Normal) Range: 98-107 K 4.1 mmol/L (Normal) Range: 3.5-5.1 NA 140 mmol/L (Normal) Range: 136-145 T BILI 0.50 mg/dL (Normal) Range: 0.20-1.00 ALT 19 U/L (Normal) Range: 13-56 ALK P 175 U/L (Abnormal) Range: 45-117 AST 29 U/L (Normal) Range: 15-37 CA 9.4 mg/dL (Normal) Range: 8.5-10.1 A/G 1.0 {RATIO} (Normal) Range: 0.9-2.4 GLOB 3.1 g/dL (Normal) Range: 2.2-4.2 ALB 3.1 g/dL (Abnormal) Range: 3.2-5.0 T PROT 6.2 g/dL (Abnormal) Range: 6.4-8.2 BUN/CRE 21.3 {RATIO} (Abnormal) Range: 10-20 Estimated CRCL 91.22 ml/min (Normal) EST GFR - AA 121 mL/min (Normal) Comments: GFR Calc EST GFR 100 mL/min (Normal) Comments: Non- GFR Calc CREAT,SERUM 0.66 mg/dL (Normal) Range: 0.55-1.02 Comments: The validity of the calculated GFR AND GFRAA in patients over70 years has not been determined. Clinical correlation isessential. BUN 14 mg/dL (Normal) Range: 7-18 GLU 270 mg/dL (Abnormal) Range: 74-106 Comments: Glucose result greater than or equal to 200 mg/dLsuggests DIABETES MELLITUS per A.D.A. criteria.Please note revised GLUCOSE reference range [id number]/02/2018. [id number] LDH 224 U/L (Normal) Comments: Reason for Laboratory Test .Serial Specimen #1, #2 or #3? [facility] [id number] [place], [place], [id number] Range: 84-246 [id number] URINE GENESIS CULTURE-IDENTIFICATN Comments: add to urine in lab; PATIENT NOT FASTINGPERFORMED BY: [facility] [id number] Information: SRC: ([id number]) Result 1 ENTEAE (Abnormal) Comments: Enterobacter aerogenes1,000 Colonies/mLMixed urogenital flora10,000-25,000 colony forming units per mL S = Susceptible; I = Intermediate; R = Resistant P = Positive; N = Neg ative MICS are expressed in micrograms per mL Antibiotic RSLT#1 RSLT#2 RSLT#3 RSLT#4Amoxicillin/Clavulanic Acid RCefazolin RCefepime SCeftriaxone SCefuroxime RCiprofloxacin SErtapenem SGentamicin SImipenem ILevofloxacin SMeropenem SNitrofurantoin ITetracycline STobramycin STrimethoprim/Sulfa S Urine Final report Culture,Comprehensi (Abnormal) ve :46 AFP, Tumor Marker Comments: Is [facility] ? [facility] (refer to report for specific site)refer to report for address and phone number AFP TUMOR 2253 10.0 ng/mL (Abnormal) Range: 0.0-8.3 Comments: Khanh ECLIA methodologyPerformed at: [facility] HospitalPkn[facility] [place] [address] [id number] Director: Omar Hood PhD, Phone: [phone] CBC W/Diff, Automated Comments: [facility] [address] [place], [place], [id number] Absolute Lymph 0.95 {X10_3/ul} (Normal) Range: 0.83-4.51 Absolute Neut 3.5 {X10_3/uL} (Normal) Range: 2.0-7.7 IM GRAN % 0.200 % (Normal) Range: 0.0-0.9 Comments: IG% - Immature Granulocytes (promyelocytes, myelocytes andmetamyelocytes) > 1% indicates that a LEFT SHIFT is Present. BASO% 0.5 % (Normal) Range: 0-1 EO% 7.3 % (Abnormal) Range: 0-5 MONO% 11.6 % (Abnormal) Range: 0-10 LY% 17.0 % (Abnormal) Range: 19-41 NEUT% 63.4 % (Normal) Range: 47-70 MPV 9.5 fL (Normal) Range: 6.2-12.0 PLT 275 K/mm3 (Normal) Range: 150-450 RDW SD 62.2 fL (Abnormal) Range: 35.1-43.9 RDW CV 16.9 % (Abnormal) Range: 11.6-14.6 MCHC 32.4 {g/gl} (Normal) Range: 32-36 MCH 34.3 pg (Abnormal) Range: 27.0-32.0 MCV 105.9 fL (Abnormal) Range: 81-99 HCT 34.0 % (Abnormal) Range: 37-47 HGB 11.0 g/dL (Abnormal) Range: 12.0-15.0 RBC 3.21 {M/mm3} (Abnormal) Range: 4.2-5.4 WBC 5.6 K/mm3 (Normal) Range: 4.4-11.0 48-Iir-57692:46 Comprehensive Metabolic Profil Comments: PLEASE ADD T3F T4F TO BLOOD FROM 05-25-[address] Oxyvlfefdx7457 [facility] [place], [place], [id number] GAP 9 (Normal) Range: 5-15 CO2 28.0 mmol/L (Normal) Range: 21.0-32.0 CL 104 mmol/L (Normal) Range: 98-107 K 3.9 mmol/L (Normal) Range: 3.5-5.1 NA 141 mmol/L (Normal) Range: 136-145 T BILI 0.60 mg/dL (Normal) Range: 0.20-1.00 ALT 23 U/L (Normal) Range: 13-56 ALK P 149 U/L (Abnormal) Range: 45-117 AST 38 U/L (Abnormal) Range: 15-37 CA 9.0 mg/dL (Normal) Range: 8.5-10.1 A/G 0.9 {RATIO} (Normal) Range: 0.9-2.4 GLOB 3.3 g/dL (Normal) Range: 2.2-4.2 ALB 2.9 g/dL (Abnormal) Range: 3.2-5.0 T PROT 6.2 g/dL (Abnormal) Range: 6.4-8.2 BUN/CRE 16.4 {RATIO} (Normal) Range: 10-20 EST GFR - AA 132 mL/min (Normal) Comments: GFR Calc EST GFR 109 mL/min (Normal) Comments: Non- GFR Calc CREAT,SERUM 0.61 mg/dL (Normal) Range: 0.55-1.02 Comments: The validity of the calculated GFR AND GFRAA in patients over70 years has not been determined. Clinical correlation isessential. BUN 10 mg/dL (Normal) Range: 7-18 GLU 166 mg/dL (Abnormal) Range: 74-106 Comments: Fasting Glucose result greater than or equal to 126 mg/dLsuggests DIABETES MELLITUS per A.D.A. criteria.Please note revised GLUCOSE reference range tnwdeansr42/02/2018. :46 Digoxin Level Comments: [facility] [address] [place], [place], [address] DIG 0.71 ng/mL (Abnormal) Range: 0.80-2.00 :46 Free T3 Comments: PLEASE ADD T3F T4F TO BLOOD FROM 05-25-[address] Pljuqqlqly[address]774 [facility] [address]. [place], [place], [phone] FREE T3 3.2 pg/mL (Normal) Range: 2.18-3.98 :46 Hemoglobin A1c Comments: [address] [place], [place], [address] HGB A1C 5.4 % (Normal) Range: 4.2-6.3 :46 Lipid Profile Comments: PLEASE ADD T3F T4F TO BLOOD FROM 05-25-[address] [place], [place], [id number] VLDL 22 mg/dL (Normal) Range: 5-40 LDL 42 mg/dL (Normal) Range: 0-130 HDL 42 mg/dL (Normal) Comments: The drugs N-Acetylcysteine and Metamizole may falselydepress this assay. Reference Range HDL <40 mg/dL Low HDL Cholesterol HDL >or= 60 mg/dL High HDL Cholesterol TRIG 112 mg/dL (Normal) Comments: The drugs N-Acetylcysteine and Metamizole may falselydepress this assay.Serum Triglycerides Reference Interval Normal <150 mg/dL Borderline high 150 - 199 mg/dL High 200 - 499 mg/dL Very High > or = 500 mg/dL CHOL 106 mg/dL (Normal) Comments: <200 mg/dL Desirable 200-240 mg/dL Borderline >240 mg/dL High Risk :46 Microalb:Creat Ratio,Random UR Comments: [facility] [address] [place], [address] MALB:CREAT 7.8 {mg/g_CRE} (Normal) MICROALBUMIN,UR 10.9 mg/L (Normal) UR CREAT 139.00 mg/dL (Normal) :46 T4 Free Direct Comments: PLEASE ADD T3F T4F TO BLOOD FROM 05-25-[address] [place], [place], [id number] T4 FREE DIRECT 1.11 ng/dL (Normal) Range: 0.76-1.46 :46 Thyroid Stim Hormone (TSH) Comments: PLEASE ADD T3F T4F TO BLOOD FROM 05-25-[address], [address] TSH 0.31 {uIU/mL} (Abnormal) Range: 0.358-3.74 :46 Urinalysis, Complete Comments: How was Urine Obtained? CLEAN [facility] [address] [place], [address] MUCUS, URINE 0 SEEN {/hpf} (Normal) BACTERIA 0 SEEN {/hpf} (Normal) SQUAM EPI 0-5 SEEN {/hpf} (Normal) Range: 5-10 RBC-UA 0-5 SEEN {/hpf} (Normal) Range: 0-5 WBC 0-5 SEEN {/hpf} (Normal) Range: 0-5 LEUK ESTERASE 100 /ul (Abnormal) OCCULT BLOOD-UR Negative /ul (Normal) NITRITE UR Negative (Normal) UROBILI 8 mg/dL (Abnormal) PROT DIPSTX 15 mg/dL (Abnormal) pH UR 8.0 (Normal) Range: 5.0 - 8.0 SP.GR. DIPSTX 1.015 (Normal) Range: 1.002-1.030 KETONE UR Negative mg/dL (Normal) BILIRUBIN URINE 1 mg/dL (Abnormal) Comments: COLOR OF URINE MAY AFFECT DIPSTICK RESULTS. GLUCOSE, UR Normal mg/dL (Normal) CLARITY Clear (Normal) COLOR Yellow (Normal) :46 Vitamin B12 368 pg/mL (Normal) Comments: [facility] [address] [place], [id number] Range: 211-911 80-Rts-75498:46 Vitamin D,25 Hydroxy Comments: [facility] [address] [place], [address] Vitamin D 25-OH 64.5 ng/mL (Normal) Range: 29.95-100.01 Comments: Vitamin D 25(OH) Status Range Deficiency <20 ng/mL (50nmol/L) Insuffciency 20 - 30 ng/mL (50 - 75 nmol/L) Sufficiency 30 - 100 ng/mL (75 - 250 nmol/L) Toxicity >100 ng/mL (>250 nmol/L) 23-Fcn-559696:52 Urinalysis, Complete Comments: Order Date: 04/06/18Has pt arrived? YHow was Urine Obtained? [facility] [address] [place], [address] HYALINE CAST 5-10 SEEN {/lpf} (Normal) Range: 0-5 MUCUS, URINE 1+ {/hpf} (Normal) BACTERIA 4+ {/hpf} (Normal) SQUAM EPI 0 SEEN {/hpf} (Normal) Range: 5-10 RBC-UA 0 SEEN {/hpf} (Normal) Range: 0-5 WBC 50-100 SEEN {/hpf} (Normal) Range: 0-5 LEUK ESTERASE 500 /ul (Abnormal) OCCULT BLOOD-UR 25 /ul (Abnormal) NITRITE UR Positive (Abnormal) UROBILI 12 mg/dL (Abnormal) PROT DIPSTX 100 mg/dL (Abnormal) pH UR 8.0 (Normal) Range: 5.0 - 8.0 SP.GR. DIPSTX 1.010 (Normal) Range: 1.002-1.030 KETONE UR 50 mg/dL (Abnormal) BILIRUBIN URINE 3 mg/dL (Abnormal) Comments: COLOR OF URINE MAY AFFECT DIPSTICK RESULTS. GLUCOSE, UR Normal mg/dL (Normal) CLARITY Cloudy (Normal) COLOR Yellow (Normal) 74-Qvw-108955:30 CBC W/Diff, Automated Comments: [facility] [address] [place], [place], [id number] OVALOCYTE RARE (Normal) MACROCYTE 1+ (Normal) ANISO 1+ (Normal) PLT EST ADEQUATE (Normal) Absolute Lymph 0.88 {X10_3/ul} (Normal) Range: 0.83-4.51 Absolute Neut 7.3 {X10_3/uL} (Normal) Range: 2.0-7.7 IM GRAN % 0.100 % (Normal) Range: 0.0-0.9 Comments: IG% - Immature Granulocytes (promyelocytes, myelocytes andmetamyelocytes) > 1% indicates that a LEFT SHIFT is Present. BASO% 0.3 % (Normal) Range: 0-1 EO% 1.0 % (Normal) Range: 0-5 MONO% 8.8 % (Normal) Range: 0-10 LY% 9.6 % (Abnormal) Range: 19-41 NEUT% 80.2 % (Abnormal) Range: 47-70 MPV 10.5 fL (Normal) Range: 6.2-12.0 PLT 241 K/mm3 (Normal) Range: 150-450 RDW SD 83.9 fL (Abnormal) Range: 35.1-43.9 RDW CV 22.2 % (Abnormal) Range: 11.6-14.6 MCHC 30.0 {g/gl} (Abnormal) Range: 32-36 MCH 31.0 pg (Normal) Range: 27.0-32.0 MCV 103.3 fL (Abnormal) Range: 81-99 HCT 37.3 % (Normal) Range: 37-47 HGB 11.2 g/dL (Abnormal) Range: 12.0-15.0 RBC 3.61 {M/mm3} (Abnormal) Range: 4.2-5.4 WBC 9.1 K/mm3 (Normal) Range: 4.4-11.0 01-Sru-846986:30 Comprehensive Metabolic Profil Comments: [facility] [address] [place], [place], [id number] GAP 12 (Normal) Range: 5-15 CO2 30.0 mmol/L (Normal) Range: 21.0-32.0 CL 98 mmol/L (Normal) Range: 98-107 K 4.8 mmol/L (Normal) Range: 3.5-5.1 Comments: Moderate Hemolysis, Result may be falsely increased. NA 140 mmol/L (Normal) Range: 136-145 T BILI 3.70 mg/dL (Abnormal) Range: 0.20-1.00 ALT 22 U/L (Normal) Range: 13-56 ALK P 101 U/L (Normal) Range: 45-117 AST 58 U/L (Abnormal) Range: 15-37 Comments: Moderate Hemolysis, Result may be falsely increased. CA 8.7 mg/dL (Normal) Range: 8.5-10.1 A/G 0.9 {RATIO} (Normal) Range: 0.9-2.4 GLOB 3.4 g/dL (Normal) Range: 2.2-4.2 ALB 3.1 g/dL (Abnormal) Range: 3.2-5.0 T PROT 6.5 g/dL (Normal) Range: 6.4-8.2 BUN/CRE 10.5 {RATIO} (Normal) Range: 10-20 Estimated CRCL 43.51 ml/min (Normal) EST GFR - AA 54 mL/min (Abnormal) Comments: GFR Calc EST GFR 44 mL/min (Abnormal) Comments: Non- GFR Calc CREAT,SERUM 1.33 mg/dL (Abnormal) Range: 0.55-1.02 Comments: The validity of the calculated GFR AND GFRAA in patients over70 years has not been determined. Clinical correlation isessential. BUN 14 mg/dL (Normal) Range: 7-18 GLU 76 mg/dL (Normal) Range: 74-106 Comments: Please note revised GLUCOSE reference range /02/2018. [id number]-Kkr-361862:30 Lactic Acid Comments: Yes/No query for Sepsis Lactate Rule [facility] [address] [place], [place], [address] LACTIC ACID 6.7 mmol/L (Abnormal) Range: 0.4-2.0 Comments: Critical Result(s) Called Lisa RIVERA at: 20:23: by: BRITTANY TORRES 94-Frp-789050:30 Partial Thromboplast Time Comments: [facility] [address] [place], [place], [address] PTT 41.3 s (Abnormal) Range: 24.1-36.2 60-Pue-038084:30 Prothrombin Time w/INR Comments: [facility] [address] [place], [place], [address] INR 2.3 (Normal) PROTIME 25.6 s (Abnormal) Range: 11.7-14.9 53-Zay-620247:30 Troponin-I Comments: [facility] [address] [place], [place], [address] TROPONIN-I 0.046 ng/mL (Abnormal) Comments: TROPONIN-I EXPECTED VALUES <0.045 Negative 0.045 - 0.590 Consistent with Cardiac Damage > OR = 0.600 Critical Value Not every elevated troponin is indicative of [place]. T hesevalues should be used with clinical judgement in examiningthe patient's clinical picture for diagnosis. To establisha diagnosis of [place] versus myocardial injury, there must be ademonstrated rise and/ or fall in the troponin values, inaddition to ischemic symptoms, EKG changes, new regionalwall motion abnormality, and/or angiographical evidence. PLEASE NOTE: REFERENCE RANGES EDITED 02/06/1805-Apr-201854-Kqf-351932:08 Ammonia Comments: [facility] [address] [place], [place], [id number] AMMONIA 20.0 umol/L (Normal) Range: 11-32 55-Hax-782504:08 CBC-Complete Blood Cnt No Diff Comments: [facility] [address] [place], [id number] MPV 10.6 fL (Normal) Range: 6.2-12.0 PLT 203 K/mm3 (Normal) Range: 150-450 RDW SD 84.5 fL (Abnormal) Range: 35.1-43.9 RDW CV 22.4 % (Abnormal) Range: 11.6-14.6 MCHC 29.9 {g/gl} (Abnormal) Range: 32-36 MCH 31.3 pg (Normal) Range: 27.0-32.0 MCV 104.5 fL (Abnormal) Range: 81-99 HCT 36.8 % (Abnormal) Range: 37-47 HGB 11.0 g/dL (Abnormal) Range: 12.0-15.0 RBC 3.52 {M/mm3} (Abnormal) Range: 4.2-5.4 WBC 6.6 K/mm3 (Normal) Range: 4.4-11.0 28-Paz-869745:08 Comprehensive Metabolic Profil Comments: [facility] [address] [place], [place], [address] GAP 9 (Normal) Range: 5-15 CO2 35.0 mmol/L (Abnormal) Range: 21.0-32.0 CL 100 mmol/L (Normal) Range: 98-107 K 3.3 mmol/L (Abnormal) Range: 3.5-5.1 Comments: Moderate Hemolysis, Result may be falsely increased. NA 144 mmol/L (Normal) Range: 136-145 T BILI 2.50 mg/dL (Abnormal) Range: 0.20-1.00 ALT 22 U/L (Normal) Range: 13-56 ALK P 88 U/L (Normal) Range: 45-117 AST 43 U/L (Abnormal) Range: 15-37 Comments: Moderate Hemolysis, Result may be falsely increased. CA 8.6 mg/dL (Normal) Range: 8.5-10.1 A/G 1.1 {RATIO} (Normal) Range: 0.9-2.4 GLOB 2.8 g/dL (Normal) Range: 2.2-4.2 ALB 3.0 g/dL (Abnormal) Range: 3.2-5.0 T PROT 5.8 g/dL (Abnormal) Range: 6.4-8.2 BUN/CRE 9.8 {RATIO} (Abnormal) Range: 10-20 EST GFR - AA 65 mL/min (Normal) Comments: GFR Calc EST GFR 54 mL/min (Abnormal) Comments: Non- GFR Calc CREAT,SERUM 1.12 mg/dL (Abnormal) Range: 0.55-1.02 Comments: The validity of the calculated GFR AND GFRAA in patients over70 years has not been determined. Clinical correlation isessential. BUN 11 mg/dL (Normal) Range: 7-18 GLU 86 mg/dL (Normal) Range: 74-106 Comments: Please note revised GLUCOSE reference range ezlrzecot94/02/2018. 09-Nbc-034573:08 Differential Comment Comments: [facility] [address] [place], [place], [address] SMEAR COMMENT COMMENT (Normal) Comments: SLIDE SCANNED - 1+ ANISO NOTED. 49-Hoh-38420:55 Urinalysis, Complete Comments: How was Urine Obtained? [facility] [address] [place], [place], [id number] AMORPHOUS 2+ (Normal) HYALINE CAST 5-10 SEEN {/lpf} (Normal) Range: 0-5 MUCUS, URINE 2+ {/hpf} (Normal) BACTERIA RARE {/hpf} (Normal) SQUAM EPI 0-5 SEEN {/hpf} (Normal) Range: 5-10 RBC-UA 0-5 SEEN {/hpf} (Normal) Range: 0-5 WBC 5-10 SEEN {/hpf} (Normal) Range: 0-5 LEUK ESTERASE 100 /ul (Abnormal) OCCULT BLOOD-UR 25 /ul (Abnormal) NITRITE UR Negative (Normal) UROBILI 4 mg/dL (Abnormal) PROT DIPSTX 100 mg/dL (Abnormal) pH UR 5.0 (Normal) Range: 5.0 - 8.0 SP.GR. DIPSTX 1.025 (Normal) Range: 1.002-1.030 KETONE UR 50 mg/dL (Abnormal) BILIRUBIN URINE 1 mg/dL (Abnormal) Comments: COLOR OF URINE MAY AFFECT DIPSTICK RESULTS. GLUCOSE, UR Normal mg/dL (Normal) CLARITY Cloudy (Normal) COLOR Yellow (Normal) :55 Urine Drug Screen (VISTA) Comments: [facility] [address] [place], [place], [id number] TO BE CONFIRMED (Normal) Comments: CONFIRMATORY TESTING FOR ALL POSITIVE URINE DRUG SCREENRESULTS WILL ONLY BE SENT OUT UPON PHYSICIAN ORDER.VISTA Urine Drug Screen methods provide only preliminaryanalytical test results. A more specific alternate chemicalmethod must be used in order to obtain a confirmedanalytical result. Gas chromatography/mass spectrometery(GC/MS) is the preferred confirmatory method. Clinicalconsideration and profe ssional judgement should be appliedto any drug of abuse test result, particularly whenpreliminary positive results are used.URINE TCA TESTING MUST BE ORDERED SEPARATELY. USE TESTMNEMONIC: PACA :59 Bedside Glucose Comments: [facility] LaboratoryPoint [address] [place], [place] [address] BEDSIDE GLU 169 mg/dL (Abnormal) Range: 70-110 Comments: MANAGEMENT OF PATIENT CARE PER NURSING PROTOCOL :35 Basic Metabolic Profile (BMP) Comments: [facility] [address] [place], [place], [address] GAP 16 (Abnormal) Range: 5-15 CO2 15.0 mmol/L (Abnormal) Range: 21.0-32.0 CL 104 mmol/L (Normal) Range: 98-107 K 6.2 mmol/L (Abnormal) Range: 3.5-5.1 Comments: Critical Result(s) Called at: 01:06:28 03/08/2018 by:ANSLEY STANFORD,TUCKPOINTER NA 135 mmol/L (Abnormal) Range: 136-145 CA 8.8 mg/dL (Normal) Range: 8.5-10.1 BUN/CRE 16.7 {RATIO} (Normal) Range: 10-20 EST GFR - AA 39 mL/min (Abnormal) Comments: GFR Calc EST GFR 32 mL/min (Abnormal) Comments: Non- GFR Calc CREAT,SERUM 1.74 mg/dL (Abnormal) Range: 0.55-1.02 Comments: The validity of the calculated GFR AND GFRAA in patients over70 years has not been determined. Clinical correlation isessential. BUN 29 mg/dL (Abnormal) Range: 7-18 GLU 176 mg/dL (Abnormal) Range: 74-106 Comments: Fasting Glucose result greater than or equal to 126 mg/dLsuggests DIABETES MELLITUS per A.D.A. criteria.Please note revised GLUCOSE reference range vzvuubxsj16/02/2018. 44-Djg-973948:59 Acetaminophen (Tylenol) Level Comments: [facility] [address] [place], [place], [address] ACETAMINOPHEN 4.9 ug/mL (Abnormal) Range: 10.0-30.0 Comments: Slight Icterus, Result may be falsely decreased. :59 Acetone Serum Comments: [facility] [address] [place], [address] ACETONE SERUM NEGATIVE (Normal) 54-Ggr-345903:59 Alcohol, Blood (Medical)-Serum Comments: [facility] [address] [place], [address] SERUM ETOH 8.0 mg/dL (Normal) Comments: The serum:whole blood ethanol ratio is approximately 1.14and varies slightly with hematocrit.Medical Alcohol reference interval and critical value innon-tolerant individuals; 50 - 100 Impairment 100 Intoxication 100 - 250 Severe Poisoning 250 - 400 Deep/possible fatal coma 22-Tps-280203:59 Digoxin Level Comments: [facility] [address] [place], [place], [id number] DIG 0.32 ng/mL (Abnormal) Range: 0.80-2.00 87-Zgj-243545:59 Lactic Acid Comments: Yes/No query for Sepsis Lactate Rule [facility] [address] [place], [place], [address] LACTIC ACID 12.4 mmol/L (Abnormal) Range: 0.4-2.0 Comments: Critical Result(s) Called at: 00:52:58 03/08/2018 by:ANSLEY OWENSTUCKPOINTER 95-Qnw-098136:59 Partial Thromboplast Time Comments: [place] [address] [place], [address] PTT 33.7 s (Normal) Range: 24.1-36.2 25-Wss-548622:59 Prothrombin Time w/INR Comments: [place] [address] [place], [address] INR 2.4 (Normal) PROTIME 26.4 s (Abnormal) Range: 11.7-14.9 :59 Salicylate Comments: [place] [address] [place], [address] SALICYLATE < 1.7 mg/dL (Abnormal) Range: 2.8-20.0 Comments: Slight Icterus, Result may be falsely decreased. :02 Blood Gases by [facility] Comments: [place] [address] [place] [address] SO2 ISTAT 99 % (Normal) Range: 95-99 TOTAL CO2 ISTAT 7 mmol/L (Normal) BE ISTAT -23 mmol/L (Abnormal) HCO3 ISTAT 6.2 mmol/L (Abnormal) Range: 22-26 PO2 I-STAT 149 {mmHG} (Abnormal) Range: 75-100 pCO2 - ISTAT 18.0 {mmHg} (Abnormal) Range: 35-45 pH - I-STAT 7.15 (Abnormal) Range: 7.35-7.45 Time Given 1100 (Normal) Results To ED MD (Normal) LPM 2.0 /min (Normal) O2 Delivery Dev Nasal Can (Normal) JONNY TEST POS (Normal) SITE L Radial (Normal) BLD GAS TYPE ART (Normal) :52 Bedside Glucose Comments: [place] [address] [place] [address] BEDSIDE GLU 214 mg/dL (Abnormal) Range: 70-110 Comments: MANAGEMENT OF PATIENT CARE PER NURSING PROTOCOL 51-Sxz-643868:37 Basic Metabolic Profile (BMP) Comments: [place] [address] [place], [place], [address] GAP 19 (Abnormal) Range: 5-15 CO2 11.0 mmol/L (Abnormal) Range: 21.0-32.0 CL 99 mmol/L (Normal) Range: 98-107 K 7.6 mmol/L (Abnormal) Range: 3.5-5.1 Comments: Moderate Hemolysis, Result may be falsely increased.Critical Result(s) Called at: 23:10:30 03/07/2018 by:Chelsea jimenez TO DR. LOPEZ NA 129 mmol/L (Abnormal) Range: 136-145 CA 8.5 mg/dL (Normal) Range: 8.5-10.1 BUN/CRE 15.8 {RATIO} (Normal) Range: 10-20 EST GFR - AA 35 mL/min (Abnormal) Comments: GFR Calc EST GFR 29 mL/min (Abnormal) Comments: Non- GFR Calc CREAT,SERUM 1.90 mg/dL (Abnormal) Range: 0.55-1.02 Comments: The validity of the calculated GFR AND GFRAA in patients over70 years has not been determined. Clinical correlation isessential. BUN 30 mg/dL (Abnormal) Range: 7-18 GLU 310 mg/dL (Abnormal) Range: 74-106 Comments: Glucose result greater than or equal to 200 mg/dLsuggests DIABETES MELLITUS per A.D.A. criteria.Please note revised GLUCOSE reference range gysoejcfa15/02/2018. 83-Ihr-273692:37 CBC W/Diff, Automated Comments: [facility] [address] [place], [place], [id number] CRENATED RBC 1+ (Normal) ANISO 1+ (Normal) SMEAR COMMENT SCANNED (Normal) Absolute Lymph 0.68 {X10_3/ul} (Abnormal) Range: 0.83-4.51 Absolute Neut 4.4 {X10_3/uL} (Normal) Range: 2.0-7.7 IM GRAN % 0.500 % (Normal) Range: 0.0-0.9 Comments: IG% - Immature Granulocytes (promyelocytes, myelocytes andmetamyelocytes) > 1% indicates that a LEFT SHIFT is Present. BASO% 0.2 % (Normal) Range: 0-1 EO% 0.0 % (Normal) Range: 0-5 MONO% 7.1 % (Normal) Range: 0-10 LY% 12.3 % (Abnormal) Range: 19-41 NEUT% 79.9 % (Abnormal) Range: 47-70 MPV 11.4 fL (Normal) Range: 6.2-12.0 PLT 170 K/mm3 (Normal) Range: 150-450 RDW SD 75.0 fL (Abnormal) Range: 35.1-43.9 RDW CV 19.3 % (Abnormal) Range: 11.6-14.6 MCHC 29.3 {g/gl} (Abnormal) Range: 32-36 MCH 30.9 pg (Normal) Range: 27.0-32.0 MCV 105.4 fL (Abnormal) Range: 81-99 HCT 36.9 % (Abnormal) Range: 37-47 HGB 10.8 g/dL (Abnormal) Range: 12.0-15.0 RBC 3.50 {M/mm3} (Abnormal) Range: 4.2-5.4 WBC 5.5 K/mm3 (Normal) Range: 4.4-11.0 :37 Lipase Comments: [facility] [address] [place] [address], [id number] LIPASE 86 U/L (Normal) Range: 73-393 :37 Liver Profile Comments: [facility] [address] [place] [address], [id number] D BILI 1.07 mg/dL (Abnormal) Range: 0.00-0.30 T BILI 2.40 mg/dL (Abnormal) Range: 0.20-1.00 ALT 120 U/L (Abnormal) Range: 13-56 ALK P 94 U/L (Normal) Range: 45-117 AST 149 U/L (Abnormal) Range: 15-37 Comments: Moderate Hemolysis, Result may be falsely increased. GLOB 2.9 g/dL (Normal) Range: 2.2-4.2 ALB 3.0 g/dL (Abnormal) Range: 3.2-5.0 T PROT 5.9 g/dL (Abnormal) Range: 6.4-8.2 :37 Magnesium Comments: [facility] [address] [place], [address] MG 2.0 mg/dL (Normal) Range: 1.6-2.6 Comments: Moderate Hemolysis, Result may be falsely increased. :37 Troponin-I Comments: [facility] [address], [address] TROPONIN-I 0.081 ng/mL (Abnormal) Comments: TROPONIN-I EXPECTED VALUES <0.045 Negative 0.045 - 0.590 Consistent with Cardiac Damage > OR = 0.600 Critical Value Not every elevated troponin is indicative of [place]. T hesevalues should be used with clinical judgement in examiningthe patient's clinical picture for diagnosis. To establisha diagnosis of [place] versus myocardial injury, there must be ademonstrated rise and/ or fall in the troponin values, inaddition to ischemic symptoms, EKG changes, new regionalwall motion abnormality, and/or angiographical evidence. PLEASE NOTE: REFERENCE RANGES EDITED 02/06/1824-Feb-[id number] CMV ANTIBODY (23101) Comments: today; PATIENT NOT FASTINGPERFORMED BY: [employer] [id number] [facility] [id number] Cytomegalovirus (CMV) Ab, IgG <0.60 U/mL (Normal) Range: 0.00-0.59 Comments: Negative <0.60 Equivocal 0.60 - 0.69 Positive >0.69 [id number] HEPATITIS PANEL ([id number]) Comments: today; PATIENT NOT FASTINGPERFORMED BY: [facility] ResearchPe[facility] Health [id number] [facility] [id number] Hep C Virus Ab <0.1 {s/co_ratio} (Normal) Range: 0.0-0.9 Comments: Negative: < 0.8 Indeterminate: 0.8 - 0.9 Positive: > 0.9 . The CDC recommends that a positive HCV antibody result be followed up with a HCV Nucleic Acid Amplification test (516281). Hep B Core Ab, IgM Negative (Normal) HBsAg Screen Negative (Normal) Hep A Ab, IgM Negative (Normal) [id number] EBV Panel ([id number]) Comments: today; PATIENT NOT FASTINGPERFORMED BY: REINALDO [facility] [id number] [facility] [id number] Interpretation: SPRCS (Normal) Comments: EBV Interpretation Chart . Interpretation EBV-IgM EA(D)-IgG VCA-IgG EBNA-IgG . EBV Seronegative - - - - Early Phase + - - - Acute Primary + +or- + - Infection Convalescence/Past - +or- + + Infection Reactivated +or- + + + Infection + Antibody Present - Antibody Absent EBV Nuclear Antigen Ab, IgG 138.0 U/mL (Abnormal) Range: 0.0-17.9 Comments: Negative <18.0 Equivocal 18.0 - 21.9 Positive >21.9 EBV Ab VCA, IgG 258.0 U/mL (Abnormal) Range: 0.0-17.9 Comments: Negative <18.0 Equivocal 18.0 - 21.9 Positive >21.9 EBV Early Antigen Ab, IgG <9.0 U/mL (Normal) Range: 0.0-8.9 Comments: Negative < 9.0 Equivocal 9.0 - 10.9 Positive >10.9 EBV Ab VCA, IgM <36.0 U/mL (Normal) Range: 0.0-35.9 Comments: Negative <36.0 Equivocal 36.0 - 43.9 Positive >43.9 [id number] CBC W/Diff, Automated Comments: Order Date: 02/23/18Order Info: [id number] - CBCDOrder Info: [id number] - [facility] [address] [place], [address] MACROCYTE 1+ (Normal) ANISO RARE (Normal) Absolute Lymph 0.82 {X10_3/ul} (Abnormal) Range: 0.83-4.51 Absolute Neut 5.4 {X10_3/uL} (Normal) Range: 2.0-7.7 IM GRAN % 0.100 % (Normal) Range: 0.0-0.9 Comments: IG% - Immature Granulocytes (promyelocytes, myelocytes andmetamyelocytes) > 1% indicates that a LEFT SHIFT is Present. BASO% 0.6 % (Normal) Range: 0-1 EO% 0.4 % (Normal) Range: 0-5 MONO% 8.2 % (Normal) Range: 0-10 LY% 12.0 % (Abnormal) Range: 19-41 NEUT% 78.7 % (Abnormal) Range: 47-70 MPV 10.8 fL (Normal) Range: 6.2-12.0 PLT 276 K/mm3 (Normal) Range: 150-450 RDW SD 66.8 fL (Abnormal) Range: 35.1-43.9 RDW CV 18.3 % (Abnormal) Range: 11.6-14.6 MCHC 31.3 {g/gl} (Abnormal) Range: 32-36 MCH 31.9 pg (Normal) Range: 27.0-32.0 MCV 102.1 fL (Abnormal) Range: 81-99 HCT 34.2 % (Abnormal) Range: 37-47 HGB 10.7 g/dL (Abnormal) Range: 12.0-15.0 RBC 3.35 {M/mm3} (Abnormal) Range: 4.2-5.4 WBC 6.9 K/mm3 (Normal) Range: 4.4-11.0 95-Uwz-752575:19 Comprehensive Metabolic Profil Comments: Order Date: 02/23/18Order Info: [id number] - CMPOrder Info: [id number] - AMYOrder Info: [id number] - [facility] [address] [place], [place], [address] GAP 11 (Normal) Range: 5-15 CO2 25.0 mmol/L (Normal) Range: 21.0-32.0 CL 98 mmol/L (Normal) Range: 98-107 K 5.1 mmol/L (Normal) Range: 3.5-5.1 NA 134 mmol/L (Abnormal) Range: 136-145 T BILI 2.10 mg/dL (Abnormal) Range: 0.20-1.00 ALT 86 U/L (Abnormal) Range: 13-56 ALK P 105 U/L (Normal) Range: 45-117 AST 186 U/L (Abnormal) Range: 15-37 CA 9.2 mg/dL (Normal) Range: 8.5-10.1 A/G 1.4 {RATIO} (Normal) Range: 0.9-2.4 GLOB 2.6 g/dL (Normal) Range: 2.2-4.2 ALB 3.7 g/dL (Normal) Range: 3.2-5.0 T PROT 6.3 g/dL (Abnormal) Range: 6.4-8.2 BUN/CRE 13.7 {RATIO} (Normal) Range: 10-20 EST GFR - AA 62 mL/min (Normal) Comments: GFR Calc EST GFR 51 mL/min (Abnormal) Comments: Non- GFR Calc CREAT,SERUM 1.17 mg/dL (Abnormal) Range: 0.55-1.02 Comments: The validity of the calculated GFR AND GFRAA in patients over70 years has not been determined. Clinical correlation isessential. BUN 16 mg/dL (Normal) Range: 7-18 GLU 120 mg/dL (Abnormal) Range: 74-106 Comments: Fasting Glucose result from 100 to 125 mg/dLsuggests IMPAIRED HOMEOSTASIS per A.D.A. criteria.Please note revised GLUCOSE reference range sqjipnmvw91/02/2018. 25-Iqg-108034:19 Erythrocyte Sed Rate Comments: Order Date: 02/23/18Order Info: [id number] - CBCDOrder Info: [id number] - [facility] [address] [place], [address] SED RATE 16 mm/h (Normal) Range: 0-30 53-Kcj-448542:19 Lipase (60311) Comments: Order Date: 02/23/18Order Info: [id number] - CMPOrder Info: [id number] - AMYOrder Info: [id number] - [facility] [address] [place], [address] LIPASE 92 U/L (Normal) Range: 73-393 03-Jal-737924:19 Amylase (42684) Comments: Order Date: 02/23/18Order Info: [id number] - CMPOrder Info: [id number] - AMYOrder Info: [id number] - [facility] [address] [place], [address] ARIAN 27 U/L (Normal) Range: 25-115 9-Xcv-458974:15 Amylase Comments: CMP, CBCD IS FOR DR ORONA IS FOR [facility] [address] [place], [place], [id number] ARIAN 29 U/L (Normal) Range: 25-115 6-Skb-154110:15 CBC W/Diff, Automated Comments: CMP, CBCD IS FOR DR ORONA IS FOR [facility] [address] [place], [id number] ANISO 1+ (Normal) Absolute Lymph 0.41 {X10_3/ul} (Abnormal) Range: 0.83-4.51 Absolute Neut 4.5 {X10_3/uL} (Normal) Range: 2.0-7.7 IM GRAN % 0.200 % (Normal) Range: 0.0-0.9 Comments: IG% - Immature Granulocytes (promyelocytes, myelocytes andmetamyelocytes) > 1% indicates that a LEFT SHIFT is Present. BASO% 0.2 % (Normal) Range: 0-1 EO% 2.5 % (Normal) Range: 0-5 MONO% 4.2 % (Normal) Range: 0-10 LY% 7.8 % (Abnormal) Range: 19-41 NEUT% 85.1 % (Abnormal) Range: 47-70 MPV 9.7 fL (Normal) Range: 6.2-12.0 PLT 273 K/mm3 (Normal) Range: 150-450 RDW SD 65.5 fL (Abnormal) Range: 35.1-43.9 RDW CV 17.7 % (Abnormal) Range: 11.6-14.6 MCHC 30.8 {g/gl} (Abnormal) Range: 32-36 MCH 31.4 pg (Normal) Range: 27.0-32.0 MCV 102.1 fL (Abnormal) Range: 81-99 HCT 33.8 % (Abnormal) Range: 37-47 HGB 10.4 g/dL (Abnormal) Range: 12.0-15.0 RBC 3.31 {M/mm3} (Abnormal) Range: 4.2-5.4 WBC 5.3 K/mm3 (Normal) Range: 4.4-11.0 2-Fmh-815253:15 Comprehensive Metabolic Profil Comments: CMP, CBCD IS FOR DR ORONA IS FOR [facility] [address] [place], [address] GAP 9 (Normal) Range: 5-15 CO2 27.0 mmol/L (Normal) Range: 21.0-32.0 CL 102 mmol/L (Normal) Range: 98-107 K 4.6 mmol/L (Normal) Range: 3.5-5.1 NA 138 mmol/L (Normal) Range: 136-145 T BILI 1.10 mg/dL (Abnormal) Range: 0.20-1.00 ALT 21 U/L (Normal) Range: 13-56 ALK P 109 U/L (Normal) Range: 45-117 AST 26 U/L (Normal) Range: 15-37 CA 9.3 mg/dL (Normal) Range: 8.5-10.1 A/G 1.1 {RATIO} (Normal) Range: 0.9-2.4 GLOB 3.2 g/dL (Normal) Range: 2.2-4.2 ALB 3.5 g/dL (Normal) Range: 3.2-5.0 T PROT 6.7 g/dL (Normal) Range: 6.4-8.2 BUN/CRE 14.3 {RATIO} (Normal) Range: 10-20 EST GFR - AA 65 mL/min (Normal) Comments: GFR Calc EST GFR 54 mL/min (Abnormal) Comments: Non- GFR Calc CREAT,SERUM 1.12 mg/dL (Abnormal) Range: 0.55-1.02 Comments: The validity of the calculated GFR AND GFRAA in patients over70 years has not been determined. Clinical correlation isessential. BUN 16 mg/dL (Normal) Range: 7-18 GLU 107 mg/dL (Abnormal) Range: 74-106 Comments: Fasting Glucose result from 100 to 125 mg/dLsuggests IMPAIRED HOMEOSTASIS per A.D.A. criteria.Please note revised GLUCOSE reference range mtauavinm15/02/2018. 6-Fne-701674:15 Digoxin Level Comments: CMP, CBCD IS FOR DR ORONA IS FOR [facility] [address] [place], [address] DIG 0.92 ng/mL (Normal) Range: 0.80-2.00 9-Jjq-808767:15 Lipase Comments: [facility], CBCD IS FOR DR ORONA IS FOR [facility] [address] [place], [address] LIPASE 101 U/L (Normal) Range: 73-393 1-Qfq-434033:15 Lipid Profile Comments: [facility], CBCD IS FOR DR ORONA IS FOR [facility] [address] [place], [address] VLDL 15 mg/dL (Normal) Range: 5-40 LDL 33 mg/dL (Normal) Range: 0-130 HDL 29 mg/dL (Abnormal) Comments: The drugs N-Acetylcysteine and Metamizole may falselydepress this assay. Reference Range HDL <40 mg/dL Low HDL Cholesterol HDL >or= 60 mg/dL High HDL Cholesterol TRIG 76 mg/dL (Normal) Comments: The drugs N-Acetylcysteine and Metamizole may falselydepress this assay.Serum Triglycerides Reference Interval Normal <150 mg/dL Borderline high 150 - 199 mg/dL High 200 - 499 mg/dL Very High > or = 500 mg/dL CHOL 77 mg/dL (Normal) Comments: <200 mg/dL Desirable 200-240 mg/dL Borderline >240 mg/dL High Risk [id number]-Sng-582650:15 Magnesium Comments: [facility], CBCD IS FOR DR ORONA IS FOR [facility] [address] [place], [address] MG 1.8 mg/dL (Normal) Range: 1.6-2.6 5-Eyo-322981:15 Microalb:Creat Ratio,Random UR Comments: [facility], CBCD IS FOR DR ORONA IS FOR [facility] [address] [place], [address] MALB:CREAT 34.3 {mg/g_CRE} (Abnormal) MICROALBUMIN,UR 58.6 mg/L (Normal) UR CREAT 171.00 mg/dL (Normal) 1-Clq-245305:15 Thyroid Stim Hormone (TSH) Comments: CMP, CBCD IS FOR DR ORONA IS FOR [facility] [address] [place], [address] TSH 1.84 {uIU/mL} (Normal) Range: 0.358-3.74 0-Nan-174961:15 Vitamin B12 383 pg/mL (Normal) Comments: CMP, CBCD IS FOR DR ORONA IS FOR [facility] [address] [place], [address] Range: 211-911 9-Yzf-553174:15 Vitamin D,25 Hydroxy Comments: CMP, CBCD IS FOR DR ORONA IS FOR [facility] [address] [place], [address] Vitamin D 25-OH 72.0 ng/mL (Normal) Range: 29.95-100.01 Comments: Vitamin D 25(OH) Status Range Deficiency <20 ng/mL (50nmol/L) Insuffciency 20 - 30 ng/mL (50 - 75 nmol/L) Sufficiency 30 - 100 ng/mL (75 - 250 nmol/L) Toxicity >100 ng/mL (>250 nmol/L) 53-Edv-517221:14 Blood Glucose , Office (97945) Blood Glucose , Office 137 (Normal) 67-Jld-237652:14 HgA1C , Office (90150) HgA1C , Office 6.1 % (Normal) Range: 4.6 - 7.1 75-Qgl-08497:35 CBC W/Diff, Automated Comments: [facility] [address] [place], [address] Absolute Lymph 1.30 {X10_3/ul} (Normal) Range: 0.83-4.51 Absolute Neut 2.3 {X10_3/uL} (Normal) Range: 2.0-7.7 IM GRAN % 0.200 % (Normal) Range: 0.0-0.9 Comments: IG% - Immature Granulocytes (promyelocytes, myelocytes andmetamyelocytes) > 1% indicates that a LEFT SHIFT is Present. BASO% 0.5 % (Normal) Range: 0-1 EO% 3.5 % (Normal) Range: 0-5 MONO% 11.3 % (Abnormal) Range: 0-10 LY% 30.7 % (Normal) Range: 19-41 NEUT% 53.8 % (Normal) Range: 47-70 MPV 9.1 fL (Normal) Range: 6.2-12.0 PLT 306 K/mm3 (Normal) Range: 150-450 RDW SD 53.6 fL (Abnormal) Range: 35.1-43.9 RDW CV 14.9 % (Abnormal) Range: 11.6-14.6 MCHC 31.9 {g/gl} (Abnormal) Range: 32-36 MCH 31.6 pg (Normal) Range: 27.0-32.0 MCV 98.9 fL (Normal) Range: 81-99 HCT 37.3 % (Normal) Range: 37-47 HGB 11.9 g/dL (Abnormal) Range: 12.0-15.0 RBC 3.77 {M/mm3} (Abnormal) Range: 4.2-5.4 WBC 4.2 K/mm3 (Abnormal) Range: 4.4-11.0 36-Pkn-14254:33 Comprehensive Metabolic Profil Comments: Reason for Laboratory Test [facility] [address] [place], [place], [address] GAP 8 (Normal) Range: 5-15 CO2 31.0 mmol/L (Normal) Range: 21.0-32.0 CL 99 mmol/L (Normal) Range: 98-107 K 3.4 mmol/L (Abnormal) Range: 3.5-5.1 NA 138 mmol/L (Normal) Range: 136-145 T BILI 0.70 mg/dL (Normal) Range: 0.20-1.00 ALT 27 U/L (Normal) Range: 13-56 Comments: Please note revised ALT reference range bmnarjalm34/28/2018. ALK P 102 U/L (Normal) Range: 45-117 AST 34 U/L (Normal) Range: 15-37 CA 9.3 mg/dL (Normal) Range: 8.5-10.1 A/G 1.1 {RATIO} (Normal) Range: 0.9-2.4 GLOB 3.3 g/dL (Normal) Range: 2.2-4.2 ALB 3.6 g/dL (Normal) Range: 3.2-5.0 T PROT 6.9 g/dL (Normal) Range: 6.4-8.2 BUN/CRE 15.3 {RATIO} (Normal) Range: 10-20 EST GFR - AA 90 mL/min (Normal) Comments: GFR Calc EST GFR 74 mL/min (Normal) Comments: Non- GFR Calc CREAT,SERUM 0.85 mg/dL (Normal) Range: 0.55-1.02 Comments: The validity of the calculated GFR AND GFRAA in patients over70 years has not been determined. Clinical correlation isessential. BUN 13 mg/dL (Normal) Range: 7-18 GLU 122 mg/dL (Abnormal) Range: 74-106 Comments: Fasting Glucose result from 100 to 125 mg/dLsuggests IMPAIRED HOMEOSTASIS per A.D.A. criteria.Please note revised GLUCOSE reference range ovesjmmva78/02/2018. 89-Lkk-13436:33 LDH 198 U/L (Normal) Comments: Reason for Laboratory Test OVSerial Specimen #1, #2 or #3? [facility] [address] [place], [place], [address] Range: 84-246 87-Mho-297532:15 Culture, Urine Comments: [facility] [address] [place], [place], [id number] CUUR See Note (Normal) Comments: VERBAL ORDER DR. IRVIN'S OFFICE Urine CultureORGANISM 1: Mixed Gram Positive OrganismsColony Count 11,000-25,000MIX CULTURE Mixed contaminants. Submit a new specimen if indicated. 71-[id number]:11 CBC W/Diff, Automated Comments: [facility] [address] [place], [place], [id number] Absolute Lymph 1.34 {X10_3/ul} (Normal) Range: 0.83-4.51 Absolute Neut 3.3 {X10_3/uL} (Normal) Range: 2.0-7.7 IM GRAN % 0.400 % (Normal) Range: 0.0-0.9 Comments: IG% - Immature Granulocytes (promyelocytes, myelocytes andmetamyelocytes) > 1% indicates that a LEFT SHIFT is Present. BASO% 0.4 % (Normal) Range: 0-1 EO% 2.6 % (Normal) Range: 0-5 MONO% 10.1 % (Abnormal) Range: 0-10 LY% 25.0 % (Normal) Range: 19-41 NEUT% 61.5 % (Normal) Range: 47-70 MPV 9.2 fL (Normal) Range: 6.2-12.0 PLT 333 K/mm3 (Normal) Range: 150-450 RDW SD 54.4 fL (Abnormal) Range: 35.1-43.9 RDW CV 14.9 % (Abnormal) Range: 11.6-14.6 MCHC 31.4 {g/gl} (Abnormal) Range: 32-36 MCH 31.6 pg (Normal) Range: 27.0-32.0 MCV 100.6 fL (Abnormal) Range: 81-99 HCT 36.3 % (Abnormal) Range: 37-47 HGB 11.4 g/dL (Abnormal) Range: 12.0-15.0 RBC 3.61 {M/mm3} (Abnormal) Range: 4.2-5.4 WBC 5.4 K/mm3 (Normal) Range: 4.4-11.0 27-Jxm-273055:11 Comprehensive Metabolic Profil Comments: Comments: [facility] [address] [place], [address] GAP 7 (Normal) Range: 5-15 CO2 28.0 mmol/L (Normal) Range: 21.0-32.0 CL 100 mmol/L (Normal) Range: 98-107 K 3.9 mmol/L (Normal) Range: 3.5-5.1 NA 135 mmol/L (Abnormal) Range: 136-145 T BILI 0.70 mg/dL (Normal) Range: 0.20-1.00 ALT 31 U/L (Normal) Range: 13-56 Comments: Please note revised ALT reference range iiqthcdkk54/28/2018. ALK P 110 U/L (Normal) Range: 45-117 AST 26 U/L (Normal) Range: 15-37 CA 8.8 mg/dL (Normal) Range: 8.5-10.1 A/G 1.2 {RATIO} (Normal) Range: 0.9-2.4 GLOB 3.1 g/dL (Normal) Range: 2.2-4.2 ALB 3.6 g/dL (Normal) Range: 3.2-5.0 T PROT 6.7 g/dL (Normal) Range: 6.4-8.2 BUN/CRE 15.0 {RATIO} (Normal) Range: 10-20 EST GFR - AA 74 mL/min (Normal) Comments: GFR Calc EST GFR 62 mL/min (Normal) Comments: Non- GFR Calc CREAT,SERUM 1.00 mg/dL (Normal) Range: 0.55-1.02 Comments: The validity of the calculated GFR AND GFRAA in patients over70 years has not been determined. Clinical correlation isessential. BUN 15 mg/dL (Normal) Range: 7-18 GLU 143 mg/dL (Abnormal) Range: 74-106 Comments: Fasting Glucose result greater than or equal to 126 mg/dLsuggests DIABETES MELLITUS per A.D.A. criteria.Please note revised GLUCOSE reference range ztuommpfc19/02/2018. 43-Tuh-106956:10 Urinalysis, Complete Comments: ORDERED UACDR.JACINDA ORDERED CMP AND CBCDComments: clean catchComments: clean catchHow was Urine Obtained? BUDDER TO [facility] [address] [place], [place], [phone] MUCUS, URINE RARE {/hpf} (Normal) BACTERIA RARE {/hpf} (Normal) SQUAM EPI 0-5 SEEN {/hpf} (Normal) Range: 5-10 RBC-UA 0 SEEN {/hpf} (Normal) Range: 0-5 WBC 5-10 SEEN {/hpf} (Normal) Range: 0-5 LEUK ESTERASE 500 /ul (Abnormal) OCCULT BLOOD-UR Negative /ul (Normal) NITRITE UR Negative (Normal) UROBILI Normal mg/dL (Normal) PROT DIPSTX 30 mg/dL (Abnormal) pH UR 5.0 (Normal) Range: 5.0 - 8.0 SP.GR. DIPSTX 1.020 (Normal) Range: 1.002-1.030 KETONE UR Negative mg/dL (Normal) BILIRUBIN URINE 1 mg/dL (Abnormal) Comments: COLOR OF URINE MAY AFFECT DIPSTICK RESULTS. GLUCOSE, UR Normal mg/dL (Normal) CLARITY Cloudy (Normal) COLOR Yellow (Normal) 3-Zkp-743521:42 ,Serum,hCG Quali. Comments: Comments: [facility] [address] [place], [place], [id number] HCGSQUAL NEGATIVE {Negative} (Normal) Range: 0-9 Nonpreg HCG Qual triggr 2 m[iU]/mL (Normal) 7-Hok-007477:41 Basic Metabolic Profile (BMP) Comments: [facility] [address] [place], [place], [id number] GAP 10 (Normal) Range: 5-15 CO2 28.0 mmol/L (Normal) Range: 21.0-32.0 CL 101 mmol/L (Normal) Range: 98-107 K 4.0 mmol/L (Normal) Range: 3.5-5.1 NA 139 mmol/L (Normal) Range: 136-145 CA 9.2 mg/dL (Normal) Range: 8.5-10.1 BUN/CRE 15.1 {RATIO} (Normal) Range: 10-20 EST GFR - AA 81 mL/min (Normal) Comments: GFR Calc EST GFR 67 mL/min (Normal) Comments: Non- GFR Calc CREAT,SERUM 0.93 mg/dL (Normal) Range: 0.55-1.02 Comments: The validity of the calculated GFR AND GFRAA in patients over70 years has not been determined. Clinical correlation isessential. BUN 14 mg/dL (Normal) Range: 7-18 GLU 112 mg/dL (Abnormal) Range: 74-106 Comments: Fasting Glucose result from 100 to 125 mg/dLsuggests IMPAIRED HOMEOSTASIS per A.D.A. criteria.Please note revised GLUCOSE reference range ruspllojb45/02/2018. 5-Svf-946608:41 CBC-Complete Blood Cnt No Diff Comments: [facility] [address] [place], [place], [id number] MPV 9.6 fL (Normal) Range: 6.2-12.0 PLT 366 K/mm3 (Normal) Range: 150-450 RDW SD 53.6 fL (Abnormal) Range: 35.1-43.9 RDW CV 14.9 % (Abnormal) Range: 11.6-14.6 MCHC 32.4 {g/gl} (Normal) Range: 32-36 MCH 32.8 pg (Abnormal) Range: 27.0-32.0 MCV 101.1 fL (Abnormal) Range: 81-99 HCT 37.6 % (Normal) Range: 37-47 HGB 12.2 g/dL (Normal) Range: 12.0-15.0 RBC 3.72 {M/mm3} (Abnormal) Range: 4.2-5.4 WBC 8.7 K/mm3 (Normal) Range: 4.4-11.0 6-Lbr-630910:41 Prothrombin Time w/INR Comments: [facility] [address] [facility] [place], [place], [address] INR 1.0 (Normal) PROTIME 12.9 s (Normal) Range: 11.7-14.9 :00 Culture, Urine Comments: [facility] [address] [facility] [place], [place], [address] CUUR See Note (Normal) Comments: Urine CultureORGANISM 1: Klebsiella pneumoniae sp pneumColony Count >100,000 Klebsiella pneumoniae sp pneum: REACTION Amoxacillin/Clavulanic Acid $ 8 S Ampicillin $ >=32 R Ampicillin/Sulbactam $ >=32 R Cefazolin $ <=4 S Cefepime $ <=1 S Ceftriaxone $ <=1 S Ciprofloxacin $ <=0.25 S ESBL - Ertapenim $$$ <=0.5 S Gentamicin $ <=1 S Imipenem *NF <=0.25 S Levofloxacin $ <=0.12 S Nitrofurantoin $ 64 I Piperacillin/Tazobactam $$ 8 S Tobramycin $ <=1 S Trimethoprim/Sulfametho $ &lt ;=20 S(NF) indicates non-formulary drug at [facility]. Approval by Infectious Disease Specialist required before non- formulary drugs may be ordered and/or dispensed. :27 AFP, Tumor Marker Comments: Is Patient ? NPatient's Weight (LBS.): 124Number of Fetuses: 0[facility] (refer to report for specific site)refer to report for address and phone number AFP TUMOR 2253 6.8 ng/mL (Normal) Range: 0.0-8.3 Comments: Khanh ECLIA methodologyPerformed at: CB - [facility] [address] [id number] Director: Omar Hood PhD, Phone: [phone] 33-Qqs-79808:27 CBC W/Diff, Automated Comments: [facility] [address] [place], [place], [phone] Absolute Lymph 1.47 {X10_3/ul} (Normal) Range: 0.83-4.51 Absolute Neut 3.7 {X10_3/uL} (Normal) Range: 2.0-7.7 IM GRAN % 0.200 % (Normal) Range: 0.0-0.9 Comments: IG% - Immature Granulocytes (promyelocytes, myelocytes andmetamyelocytes) > 1% indicates that a LEFT SHIFT is Present. BASO% 0.3 % (Normal) Range: 0-1 EO% 2.2 % (Normal) Range: 0-5 MONO% 11.3 % (Abnormal) Range: 0-10 LY% 24.4 % (Normal) Range: 19-41 NEUT% 61.6 % (Normal) Range: 47-70 MPV 9.6 fL (Normal) Range: 6.2-12.0 PLT 291 K/mm3 (Normal) Range: 150-450 RDW SD 46.1 fL (Abnormal) Range: 35.1-43.9 RDW CV 13.2 % (Normal) Range: 11.6-14.6 MCHC 33.6 {g/gl} (Normal) Range: 32-36 MCH 33.1 pg (Abnormal) Range: 27.0-32.0 MCV 98.5 fL (Normal) Range: 81-99 HCT 39.6 % (Normal) Range: 37-47 HGB 13.3 g/dL (Normal) Range: 12.0-15.0 RBC 4.02 {M/mm3} (Abnormal) Range: 4.2-5.4 WBC 6.0 K/mm3 (Normal) Range: 4.4-11.0 :27 Comprehensive Metabolic Profil Comments: [facility] [address] [place], [place], [id number] GAP 9 (Normal) Range: 5-15 CO2 28.0 mmol/L (Normal) Range: 21.0-32.0 CL 99 mmol/L (Normal) Range: 98-107 K 4.1 mmol/L (Normal) Range: 3.5-5.1 NA 136 mmol/L (Normal) Range: 136-145 T BILI 0.60 mg/dL (Normal) Range: 0.20-1.00 ALT 40 U/L (Normal) Range: 12-78 ALK P 93 U/L (Normal) Range: 45-117 AST 30 U/L (Normal) Range: 15-37 CA 9.6 mg/dL (Normal) Range: 8.5-10.1 A/G 1.1 {RATIO} (Normal) Range: 0.9-2.4 GLOB 3.4 g/dL (Normal) Range: 2.2-4.2 ALB 3.9 g/dL (Normal) Range: 3.4-5.0 Comments: Please note revised Albumin AND Globulin reference rangeeffective 2017. T PROT 7.3 g/dL (Normal) Range: 6.4-8.2 BUN/CRE 16.0 {RATIO} (Normal) Range: 10-20 EST GFR - AA 87 mL/min (Normal) Comments: GFR Calc EST GFR 72 mL/min (Normal) Comments: Non- GFR Calc CREAT,SERUM 0.88 mg/dL (Normal) Range: 0.55-1.02 Comments: The validity of the calculated GFR AND GFRAA in patients over70 years has not been determined. Clinical correlation isessential. BUN 14 mg/dL (Normal) Range: 7-18 GLU 101 mg/dL (Normal) Range: 70-110 :27 Microalb:Creat Ratio,Random UR Comments: [facility] [address] [place], [place], [id number] MALB:CREAT 17.4 {mg/g_CRE} (Normal) MICROALBUMIN,UR 37.5 mg/L (Normal) UR CREAT 215.00 mg/dL (Normal) :40 CBC W/Diff, Automated Comments: [facility] [address] [place], [address] Absolute Lymph 1.60 {X10_3/ul} (Normal) Range: 0.83-4.51 Absolute Neut 8.5 {X10_3/uL} (Abnormal) Range: 2.0-7.7 IM GRAN % 0.300 % (Normal) Range: 0.0-0.9 Comments: IG% - Immature Granulocytes (promyelocytes, myelocytes andmetamyelocytes) > 1% indicates that a LEFT SHIFT is Present. BASO% 0.2 % (Normal) Range: 0-1 EO% 0.7 % (Normal) Range: 0-5 MONO% 6.0 % (Normal) Range: 0-10 LY% 14.7 % (Abnormal) Range: 19-41 NEUT% 78.1 % (Abnormal) Range: 47-70 MPV 9.3 fL (Normal) Range: 6.2-12.0 PLT 350 K/mm3 (Normal) Range: 150-450 RDW SD 51.8 fL (Abnormal) Range: 35.1-43.9 RDW CV 14.2 % (Normal) Range: 11.6-14.6 MCHC 33.1 {g/gl} (Normal) Range: 32-36 MCH 33.8 pg (Abnormal) Range: 27.0-32.0 MCV 102.2 fL (Abnormal) Range: 81-99 HCT 37.5 % (Normal) Range: 37-47 HGB 12.4 g/dL (Normal) Range: 12.0-15.0 RBC 3.67 {M/mm3} (Abnormal) Range: 4.2-5.4 WBC 10.9 K/mm3 (Normal) Range: 4.4-11.0 :39 Comprehensive Metabolic Profil Comments: Order Date: 12/06/16Order Info: [id number] - *[facility] [id number] [place], [place], [id number] GAP 10 (Normal) Range: 5-15 CO2 27.0 mmol/L (Normal) Range: 21.0-32.0 CL 97 mmol/L (Abnormal) Range: 98-107 K 3.9 mmol/L (Normal) Range: 3.5-5.1 NA 134 mmol/L (Abnormal) Range: 136-145 T BILI 0.70 mg/dL (Normal) Range: 0.20-1.00 ALT 45 U/L (Normal) Range: 12-78 ALK P 108 U/L (Normal) Range: 45-117 AST 29 U/L (Normal) Range: 15-37 CA 9.7 mg/dL (Normal) Range: 8.5-10.1 A/G 1.3 {RATIO} (Normal) Range: 0.9-2.4 GLOB 3.1 g/dL (Normal) Range: 2.2-4.2 ALB 3.9 g/dL (Normal) Range: 3.4-5.0 Comments: Please note revised Albumin AND Globulin reference rangeeffective 2017. T PROT 7.0 g/dL (Normal) Range: 6.4-8.2 BUN/CRE 25.9 {RATIO} (Abnormal) Range: 10-20 EST GFR - AA 65 mL/min (Normal) Comments: GFR Calc EST GFR 54 mL/min (Abnormal) Comments: Non- GFR Calc CREAT,SERUM 1.12 mg/dL (Abnormal) Range: 0.55-1.02 Comments: The validity of the calculated GFR AND GFRAA in patients over70 years has not been determined. Clinical correlation isessential. BUN 29 mg/dL (Abnormal) Range: 7-18 GLU 110 mg/dL (Normal) Range: 70-110 Comments: Fasting Glucose result from 110 to <126 mg/dLsuggests IMPAIRED HOMEOSTASIS per A.D.A. criteria. [id number] Culture, Urine Comments: [facility] [id number] [place], [address] CUUR See Note (Normal) Comments: Urine CultureORGANISM 1: Presumptive E. coliColony Count 50,000-80,000 Presumptive E. coli: REACTION Amoxacillin/Clavulanic Acid $ 4 S Ampicillin $ 8 S Ampicillin/Sulbactam $ 4 S Cefazolin $ <=4 S Cefepime $ <=1 S Ceftriaxone $ <=1 S Ciprofloxacin $ <=0.25 S ESBL - Ertapenim $$$ <=0.5 S Gentamicin $ <=1 S Imipenem *NF <=0.25 S Levofloxacin $ <=0.12 S Nitrofuran toin $ <=16 S Piperacillin/Tazobactam $$ <=4 S Tobramycin $ <=1 S Trimethoprim/Sulfametho $ <=20 S(NF) indicates non-formulary drug at [facility]. Approval by Infectious Disease Specialist required before non-formulary drugs may be ordered and/or dispensed. :35 HgA1C , Office ([id number]) HgA1C , Office 6.5 % (Normal) Range: 4.6 - 7.1 :07 AFP, Tumor Marker Comments: [facility]er to [facility] for specific site)refer to report for address and phone number AFP TUMOR 2253 8.5 ng/mL (Abnormal) Range: 0.0-8.3 Comments: [place] ECLIA methodologyPerformed at: [place] [employer] [facility] [place] [id number] Director: Omar Hood PhD, Phone: [phone] :[phone] CBC W/Diff, Automated Comments: [facility] [address] [place], [address] Absolute Lymph 1.17 {X10_3/ul} (Normal) Range: 0.83-4.51 Absolute Neut 1.9 {X10_3/uL} (Abnormal) Range: 2.0-7.7 IM GRAN % 0.000 % (Normal) Range: 0.0-0.9 Comments: IG% - Immature Granulocytes (promyelocytes, myelocytes andmetamyelocytes) > 1% indicates that a LEFT SHIFT is Present. BASO% 0.8 % (Normal) Range: 0-1 EO% 3.0 % (Normal) Range: 0-5 MONO% 12.0 % (Abnormal) Range: 0-10 LY% 32.0 % (Normal) Range: 19-41 NEUT% 52.2 % (Normal) Range: 47-70 MPV 9.6 fL (Normal) Range: 6.2-12.0 PLT 243 K/mm3 (Normal) Range: 150-450 RDW SD 46.8 fL (Abnormal) Range: 35.1-43.9 RDW CV 13.3 % (Normal) Range: 11.6-14.6 MCHC 34.4 {g/gl} (Normal) Range: 32-36 MCH 34.4 pg (Abnormal) Range: 27.0-32.0 MCV 100.0 fL (Abnormal) Range: 81-99 HCT 37.5 % (Normal) Range: 37-47 HGB 12.9 g/dL (Normal) Range: 12.0-15.0 RBC 3.75 {M/mm3} (Abnormal) Range: 4.2-5.4 WBC 3.7 K/mm3 (Abnormal) Range: 4.4-11.0 31-May-20179:07 Comprehensive Metabolic Profil Comments: [facility] [address] [place], [place], [address] GAP 9 (Normal) Range: 5-15 CO2 28.0 mmol/L (Normal) Range: 21.0-32.0 CL 100 mmol/L (Normal) Range: 98-107 K 4.0 mmol/L (Normal) Range: 3.5-5.1 NA 137 mmol/L (Normal) Range: 136-145 T BILI 0.80 mg/dL (Normal) Range: 0.20-1.00 ALT 57 U/L (Normal) Range: 12-78 ALK P 76 U/L (Normal) Range: 45-117 AST 48 U/L (Abnormal) Range: 15-37 CA 9.4 mg/dL (Normal) Range: 8.5-10.1 A/G 1.3 {RATIO} (Normal) Range: 0.9-2.4 GLOB 2.9 g/dL (Normal) Range: 2.3-3.5 ALB 3.9 g/dL (Normal) Range: 3.4-5.0 T PROT 6.8 g/dL (Normal) Range: 6.4-8.2 BUN/CRE 13.8 {RATIO} (Normal) Range: 10-20 EST GFR - AA 88 mL/min (Normal) Comments: GFR Calc EST GFR 73 mL/min (Normal) Comments: Non- GFR Calc CREAT,SERUM 0.87 mg/dL (Normal) Range: 0.55-1.02 Comments: The validity of the calculated GFR AND GFRAA in patients over70 years has not been determined. Clinical correlation isessential. BUN 12 mg/dL (Normal) Range: 7-18 GLU 123 mg/dL (Abnormal) Range: 70-110 Comments: Fasting Glucose result from 110 to <126 mg/dLsuggests IMPAIRED HOMEOSTASIS per A.D.A. criteria. 31-May-20179:07 NMR Lipoprofile Comments: [facility] (refer to report for specific site)refer to report for address and phone number LP-IR SCORE 95 (Abnormal) Comments: INSULIN RESISTANCE MARKER <--Insulin Sensitive Insulin Resistant--> Percentile in Reference PopulationInsulin Resistance ScoreLP-IR Score Low 25th 50th 75th High <27 27 45 63 >63LP-IR Score is inaccurate if patient is non-fasting.The LP-IR score is a laboratory developed index that hasbeen associated with insulin resistance and diabetes riskand should be used as one component of a physician'sclinical assessment. The LP-IR score listed above has notbeen cleared by the US Food and Drug Administration.Performed at: - [address] [id number] Director: Zia Jarvis MD, Phone: [phone] INS RES/DIAB RK . (Normal) LDL SIZE 19.7 nm (Normal) Comments: INTERPRETATIVE INFORMATION PARTICLE CONCENTRATION AND SIZE <--Lower CVD Risk Highe r CVD Risk--> LDL AND HDL PARTICLES Percentile in Reference Population HDL-P (total) High 75th 50th 25th Low >34.9 34.9 30.5 26.7 <26.7 Small LDL-P Low 25th 50th 75th High <117 117 527 839 >839 LDL Size <-Large (Pattern A)-> <-Small (Pattern B)-> 23.0 20.6 20.5 19.0 Small LDL-P and LDL Size are associated with CVD risk, butnot after LDL-P is taken into account .These assays were developed and their performancecharacteristics determined by [employer]. These assayshave not been cleared by the US Food and DrugAdministration. The clinical utility of these laboratoryvalues have not been fully established. SMALL LDL-P 756 nmol/L (Abnormal) HDL-P TOTAL 20.2 umol/L (Abnormal) LD HD PARTICLES . (Normal) LDL-P 952 nmol/L (Normal) Comments: Low < 1000 Moderate 1000 - 1299 Borderline- High 1300 - 1599 High 1600 - 2000 Very High > 2000 TRIGLYCERIDES 231 mg/dL (Abnormal) Range: 0-149 HDL-C 22 mg/dL (Abnormal) LDL-C 35 mg/dL (Normal) Range: 0-99 Comments: Optimal < 100 Above optimal 100 - 129 Borderline 130 - 159 High 160 - 189 Very high > 189LDL-C is inaccurate if patient is non-fasting. CHOLESTEROL TOT 103 mg/dL (Normal) Range: 100-199 LIPIDS . (Normal) :07 Vitamin D,25 Hydroxy Comments: [facility] [address] [facility] [place], [place], [phone] Vitamin D 25-OH 61.8 ng/mL (Normal) Comments: Vitamin D 25(OH) Status Range Deficiency <20 ng/mL (50nmol/L) Insuffciency 20 - 30 ng/mL (50 - 75 nmol/L) Sufficiency 30 - 100 ng/mL (75 - 250 nmol/L) Toxicity >100 ng/mL (>250 nmol/L) :48 Liver Profile Comments: [facility] [address] [facility] [place], [place], [id number] D BILI 0.14 mg/dL (Normal) Range: 0.00-0.30 T BILI 0.50 mg/dL (Normal) Range: 0.20-1.00 ALT 57 U/L (Normal) Range: 12-78 ALK P 94 U/L (Normal) Range: 45-117 AST 40 U/L (Abnormal) Range: 15-37 GLOB 2.8 g/dL (Normal) Range: 2.3-3.5 ALB 3.9 g/dL (Normal) Range: 3.4-5.0 T PROT 6.7 g/dL (Normal) Range: 6.4-8.2 :45 Potassium Comments: [facility] [address] [place], [place], [address] K 4.3 mmol/L (Normal) Range: 3.5-5.1 :35 CBC W/Diff, Automated Comments: [facility] [address] [place], [place], [phone] Absolute Lymph 1.24 {X10_3/ul} (Normal) Range: 0.83-4.51 Absolute Neut 1.8 {X10_3/uL} (Abnormal) Range: 2.0-7.7 IM GRAN % 0.300 % (Normal) Range: 0.0-0.9 Comments: IG% - Immature Granulocytes (promyelocytes, myelocytes andmetamyelocytes) > 1% indicates that a LEFT SHIFT is Present. BASO% 0.6 % (Normal) Range: 0-1 EO% 3.6 % (Normal) Range: 0-5 MONO% 12.0 % (Abnormal) Range: 0-10 LY% 34.6 % (Normal) Range: 19-41 NEUT% 48.9 % (Normal) Range: 47-70 MPV 9.7 fL (Normal) Range: 6.2-12.0 PLT 254 K/mm3 (Normal) Range: 150-450 RDW SD 47.9 fL (Abnormal) Range: 35.1-43.9 RDW CV 13.4 % (Normal) Range: 11.6-14.6 MCHC 33.9 {g/gl} (Normal) Range: 32-36 MCH 34.1 pg (Abnormal) Range: 27.0-32.0 MCV 100.5 fL (Abnormal) Range: 81-99 HCT 38.9 % (Normal) Range: 37-47 HGB 13.2 g/dL (Normal) Range: 12.0-15.0 RBC 3.87 {M/mm3} (Abnormal) Range: 4.2-5.4 WBC 3.6 K/mm3 (Abnormal) Range: 4.4-11.0 :35 Comprehensive Metabolic Profil Comments: [facility] [address] [place], [place], [address] GAP 10 (Normal) Range: 5-15 CO2 31.0 mmol/L (Normal) Range: 21.0-32.0 CL 95 mmol/L (Abnormal) Range: 98-107 K 3.1 mmol/L (Abnormal) Range: 3.5-5.1 NA 136 mmol/L (Normal) Range: 136-145 T BILI 0.50 mg/dL (Normal) Range: 0.20-1.00 ALT 64 U/L (Normal) Range: 12-78 ALK P 112 U/L (Normal) Range: 45-117 AST 52 U/L (Abnormal) Range: 15-37 CA 9.4 mg/dL (Normal) Range: 8.5-10.1 A/G 1.3 {RATIO} (Normal) Range: 0.9-2.4 GLOB 3.0 g/dL (Normal) Range: 2.3-3.5 ALB 3.8 g/dL (Normal) Range: 3.4-5.0 T PROT 6.8 g/dL (Normal) Range: 6.4-8.2 BUN/CRE 14.6 {RATIO} (Normal) Range: 10-20 EST GFR - AA 78 mL/min (Normal) Comments: GFR Calc EST GFR 65 mL/min (Normal) Comments: Non- GFR Calc CREAT,SERUM 0.96 mg/dL (Normal) Range: 0.55-1.02 Comments: The validity of the calculated GFR AND GFRAA in patients over70 years has not been determined. Clinical correlation isessential. BUN 14 mg/dL (Normal) Range: 7-18 GLU 172 mg/dL (Abnormal) Range: 70-110 Comments: Fasting Glucose result greater than or equal to 126 mg/dLsuggests DIABETES MELLITUS per A.D.A. criteria. :0 ASPIRATION (SLIDES ONLY) See Note (Normal) Comments: [facility] [address] [place], [address] 0 Comments: Patient: IFEOMA ASHRAF : 1965 (52/F) Acct Num: [id number] Phys: Janelle KING,Alejandro Unit Num: [id number] Loc: [facility] Specimen: [id number] Received: 03/18/17 - 1127 Spec Ty pe: ASPIRATION TISSUES TISSUES: COMMENT Correlation with clinical, radiologic findings and appropriate follow up are necessary. CYTOLOGY GROSS Received are ten smears labeled wi th the patient's name and designated per the requisition as left thyroid FNA. Submitted for staining. / 03/18/17 TC:5 CPT: 02333 CYTOLOGY STUDY Slides are reviewed. The specimen is adequat e for evaluation. The specimen consists of benign follicular cells and colloid. DIAGNOSIS CYTOLOGY Left thyroid nodule, ultrasound-guided FNA (smears): Consistent with benign colloid nodul e. See cytology study and comment. SJ:garrison 03/21/17 HEADER OPERATION: Ultrasound-guided left thyroid FNA PRE-OP DIAGNOSIS: Left thyroid nodule TISSUE SUBMITTED: Left thyroid FNA Signed Toni Yepez 03/21/17 <signature on file> 01-Mar-20179:30 HEPATITIS C ANTIBODY (12477) Comments: PATIENT NOT FASTINGPERFORMED BY: [facility] Heafkd9809 [facility] HospitalKeaton RowECU [facility] [id number] Hep C Virus Ab <0.1 {s/co_ratio} (Normal) Range: 0.0-0.9 Comments: Negative: < 0.8 Indeterminate: 0.8 - 0.9 Positive: > 0.9 . The CDC recommends that a positive HCV antibody result be followed up with a HCV Nucleic Acid Amplification test (880668). :30 Potassium Serum (73281) Comments: PATIENT NOT FASTINGPERFORMED BY: [employer] Alzufo[address] [facility] HospitalKeaton RowEC[facility] [id number] Potassium, Serum 4.8 mmol/L (Normal) Range: 3.5-5.2 :29 HgA1C , Office (67504) HgA1C , Office 7.9 % (Abnormal) Range: 4.6 - 7.1 :53 CBC W/Diff, Automated Comments: [facility] [address] [place], [place], [phone] Absolute Lymph 1.57 {X10_3/ul} (Normal) Range: 0.83-4.51 Absolute Neut 2.4 {X10_3/uL} (Normal) Range: 2.0-7.7 IM GRAN % 0.000 % (Normal) Range: 0.0-0.9 Comments: IG% - Immature Granulocytes (promyelocytes, myelocytes andmetamyelocytes) > 1% indicates that a LEFT SHIFT is Present. BASO% 0.4 % (Normal) Range: 0-1 EO% 2.3 % (Normal) Range: 0-5 MONO% 14.0 % (Abnormal) Range: 0-10 LY% 32.8 % (Normal) Range: 19-41 NEUT% 50.5 % (Normal) Range: 47-70 MPV 9.5 fL (Normal) Range: 6.2-12.0 PLT 305 K/mm3 (Normal) Range: 150-450 RDW SD 48.3 fL (Abnormal) Range: 35.1-43.9 RDW CV 13.9 % (Normal) Range: 11.6-14.6 MCHC 33.8 {g/gl} (Normal) Range: 32-36 MCH 33.3 pg (Abnormal) Range: 27.0-32.0 MCV 98.5 fL (Normal) Range: 81-99 HCT 39.6 % (Normal) Range: 37-47 HGB 13.4 g/dL (Normal) Range: 12.0-15.0 RBC 4.02 {M/mm3} (Abnormal) Range: 4.2-5.4 WBC 4.8 K/mm3 (Normal) Range: 4.4-11.0 :53 Comprehensive Metabolic Profil Comments: [facility] [address] [place], [place], [id number] GAP 11 (Normal) Range: 5-15 CO2 32.0 mmol/L (Normal) Range: 21.0-32.0 CL 92 mmol/L (Abnormal) Range: 98-107 K 3.3 mmol/L (Abnormal) Range: 3.5-5.1 NA 135 mmol/L (Abnormal) Range: 136-145 T BILI 0.80 mg/dL (Normal) Range: 0.20-1.00 ALT 58 U/L (Normal) Range: 12-78 ALK P 83 U/L (Normal) Range: 45-117 AST 52 U/L (Abnormal) Range: 15-37 CA 8.8 mg/dL (Normal) Range: 8.5-10.1 A/G 1.2 {RATIO} (Normal) Range: 0.9-2.4 GLOB 3.1 g/dL (Normal) Range: 2.3-3.5 ALB 3.7 g/dL (Normal) Range: 3.4-5.0 T PROT 6.8 g/dL (Normal) Range: 6.4-8.2 BUN/CRE 13.2 {RATIO} (Normal) Range: 10-20 EST GFR - AA 76 mL/min (Normal) Comments: GFR Calc EST GFR 63 mL/min (Normal) Comments: Non- GFR Calc CREAT,SERUM 0.98 mg/dL (Normal) Range: 0.55-1.02 Comments: The validity of the calculated GFR AND GFRAA in patients over70 years has not been determined. Clinical correlation isessential. BUN 13 mg/dL (Normal) Range: 7-18 GLU 180 mg/dL (Abnormal) Range: 70-110 Comments: Fasting Glucose result greater than or equal to 126 mg/dLsuggests DIABETES MELLITUS per A.D.A. criteria. :53 Lipid Profile Comments: [facility] [address] [place], [address] VLDL 37 mg/dL (Normal) Range: 5-40 LDL 26 mg/dL (Normal) Range: 0-130 HDL 27 mg/dL (Abnormal) Comments: The drugs N-Acetylcysteine and Metamizole may falsely deressthis assay. Reference Range HDL <40 mg/dL Low HDL Cholesterol HDL >or= 60 mg/dL High HDL Cholesterol TRIG 187 mg/dL (Normal) Comments: The drugs N-Acetylcysteine and Metamizole may falsely deressthis assay.Serum Triglycerides Reference Interval Normal <150 mg/dL Borderline high 150 - 199 mg/dL High 200 - 499 mg/dL Very High > or = 500 mg/dL CHOL 90 mg/dL (Normal) Comments: <200 mg/dL Desirable 200-240 mg/dL Borderline >240 mg/dL High Risk :53 Microalb:Creat Ratio,Random UR Comments: [facility] [address] [place], [place], [id number] MALB:CREAT 19.7 {mg/g_CRE} (Normal) MICROALBUMIN,UR 27.8 mg/L (Normal) UR CREAT 141.00 mg/dL (Normal) :53 Thyroid Stim Hormone (TSH) Comments: [facility] [address] [place], [place], [id number] TSH 2.39 {uIU/mL} (Normal) Range: 0.358-3.74 :53 Vitamin D,25 Hydroxy Comments: [facility] [address] [place], [place], [id number] Vitamin D 25-OH 79.9 ng/mL (Normal) Comments: Vitamin D 25(OH) Status Range Deficiency <20 ng/mL (50nmol/L) Insuffciency 20 - 30 ng/mL (50 - 75 nmol/L) Sufficiency 30 - 100 ng/mL (75 - 250 nmol/L) Toxicity >100 ng/mL (>250 nmol/L) 64-Zsu-[id number]:08 CBC W/Diff, Automated Comments: [facility] [address] [place], [place], [id number] Absolute Lymph 2.04 {X10_3/ul} (Normal) Range: 0.83-4.51 Absolute Neut 6.1 {X10_3/uL} (Normal) Range: 2.0-7.7 IM GRAN % 0.200 % (Normal) Range: 0.0-0.9 Comments: IG% - Immature Granulocytes (promyelocytes, myelocytes andmetamyelocytes) > 1% indicates that a LEFT SHIFT is Present. BASO% 0.1 % (Normal) Range: 0-1 EO% 1.2 % (Normal) Range: 0-5 MONO% 8.1 % (Normal) Range: 0-10 LY% 22.6 % (Normal) Range: 19-41 NEUT% 67.8 % (Normal) Range: 47-70 MPV 9.5 fL (Normal) Range: 6.2-12.0 PLT 313 K/mm3 (Normal) Range: 150-450 RDW SD 53.3 fL (Abnormal) Range: 35.1-43.9 RDW CV 14.4 % (Normal) Range: 11.6-14.6 MCHC 32.4 {g/gl} (Normal) Range: 32-36 MCH 33.0 pg (Abnormal) Range: 27.0-32.0 MCV 102.0 fL (Abnormal) Range: 81-99 HCT 41.4 % (Normal) Range: 37-47 HGB 13.4 g/dL (Normal) Range: 12.0-15.0 RBC 4.06 {M/mm3} (Abnormal) Range: 4.2-5.4 WBC 9.0 K/mm3 (Normal) Range: 4.4-11.0 53-Sok-655937:08 Comprehensive Metabolic Profil Comments: [facility] [address] [place], [place], [phone] GAP 9 (Normal) Range: 5-15 CO2 27.0 mmol/L (Normal) Range: 21.0-32.0 CL 97 mmol/L (Abnormal) Range: 98-107 K 4.0 mmol/L (Normal) Range: 3.5-5.1 NA 133 mmol/L (Abnormal) Range: 136-145 T BILI 0.40 mg/dL (Normal) Range: 0.20-1.00 ALT 52 U/L (Normal) Range: 12-78 ALK P 155 U/L (Abnormal) Range: 45-117 AST 48 U/L (Abnormal) Range: 15-37 CA 9.5 mg/dL (Normal) Range: 8.5-10.1 A/G 1.2 {RATIO} (Normal) Range: 0.9-2.4 GLOB 3.1 g/dL (Normal) Range: 2.3-3.5 ALB 3.6 g/dL (Normal) Range: 3.4-5.0 T PROT 6.7 g/dL (Normal) Range: 6.4-8.2 BUN/CRE 16.8 {RATIO} (Normal) Range: 10-20 EST GFR - AA 79 mL/min (Normal) Comments: GFR Calc EST GFR 65 mL/min (Normal) Comments: Non- GFR Calc CREAT,SERUM 0.96 mg/dL (Normal) Range: 0.55-1.02 Comments: The validity of the calculated GFR AND GFRAA in patients over70 years has not been determined. Clinical correlation isessential. BUN 16 mg/dL (Normal) Range: 7-18 GLU 167 mg/dL (Abnormal) Range: 70-110 Comments: Fasting Glucose result greater than or equal to 126 mg/dLsuggests DIABETES MELLITUS per A.D.A. criteria. [id number]-Qes-[id number]:00 Culture, Urine Comments: [facility] [address] [place], [place], [id number] CUUR See Note (Normal) Comments: Urine CultureORGANISM 1: Mixed Gram Positive OrganismsColony Count >100,000MIX CULTURE Mixed contaminants. Submit a new specimen if indicated. [id number]-Osv-[id number]:25 CBC W/Diff, Auto - EPLAB Comments: At [facility] Outpatient [facility] Medical Oncologypatients receive CBC w/auto Differential ONLY. Physicianwill place an order for a manual differential or Pathologistreview at his discretion. [facility] OUTPATIENT [facility]. [address] [place] [address] [address] [employer]CREAGE MEASURER: MATEO CASTANEDA DO PH:[phone] Hospitals Conneaut Medical Center [address] [place], [place], [id number] Absolute Lymph 1.42 {X10_3/uL} (Normal) Range: 0.83-4.51 Absolute Neut 4.1 {X10_3/uL} (Normal) Range: 2.0-7.7 BASO% 0.9 % (Normal) Range: 0-1 EO% 1.2 % (Normal) Range: 0-5 MONO% 9.9 % (Normal) Range: 0-10 LY% 22.6 % (Normal) Range: 19-41 NEUT% 65.3 % (Normal) Range: 47-70 MPV 6.3 fL (Normal) Range: 6.2-12.0 PLT 280 K/mm3 (Normal) Range: 150-450 RDW 13.1 % (Normal) Range: 11.6-14.6 MCHC 33.5 g/dL (Normal) Range: 32-36 MCH 34.3 pg (Abnormal) Range: 27.0-32.0 MCV 102.2 fL (Abnormal) Range: 81-99 HCT 38.6 % (Normal) Range: 37-47 HGB 12.9 g/dL (Normal) Range: 12.0-15.0 RBC 3.77 {M/mm3} (Abnormal) Range: 4.2-5.4 WBC 6.3 K/mm3 (Normal) Range: 4.4-11.0 3-Nbd-198040:25 Comprehensive Metabolic Profil Comments: Order Date: 06/07/16Order Date: 06/07/16erial Specimen #1, #2 or #3? 1[facility] [address] [place], [place], [address] GAP 11 (Normal) Range: 5-15 CO2 24.0 mmol/L (Normal) Range: 21.0-32.0 CL 98 mmol/L (Normal) Range: 98-107 K 3.8 mmol/L (Normal) Range: 3.5-5.1 NA 133 mmol/L (Abnormal) Range: 136-145 T BILI 0.40 mg/dL (Normal) Range: 0.20-1.00 ALT 58 U/L (Normal) Range: 12-78 ALK P 159 U/L (Abnormal) Range: 45-117 AST 50 U/L (Abnormal) Range: 15-37 CA 9.2 mg/dL (Normal) Range: 8.5-10.1 A/G 1.1 {RATIO} (Normal) Range: 0.9-2.4 GLOB 3.1 g/dL (Normal) Range: 2.3-3.5 ALB 3.4 g/dL (Normal) Range: 3.4-5.0 T PROT 6.5 g/dL (Normal) Range: 6.4-8.2 BUN/CRE 12.9 {RATIO} (Normal) Range: 10-20 EST GFR - AA 90 mL/min (Normal) Comments: GFR Calc EST GFR 74 mL/min (Normal) Comments: Non- GFR Calc CREAT,SERUM 0.85 mg/dL (Normal) Range: 0.55-1.02 Comments: The validity of the calculated GFR AND GFRAA in patients over70 years has not been determined. Clinical correlation isessential. BUN 11 mg/dL (Normal) Range: 7-18 GLU 314 mg/dL (Abnormal) Range: 70-110 Comments: Glucose result greater than or equal to 200 mg/dLsuggests DIABETES MELLITUS per A.D.A. criteria. [id number]-Kdb-[id number]:25 LDH 208 U/L (Normal) Comments: Order Date: 06/07/16Order Date: 16Serial Specimen #1, #2 or #3? [address] [place] [address] [id number] [place], [address] Range: 84-246 [id number]-Fkm-[id number]:25 Uric Acid Comments: Order Date: 06/07/16Order Date: 16Serial Specimen #1, #2 or #3? [address] [place] [address] [id number] [place], [address] URIC 3.8 mg/dL (Normal) Range: 2.6-6.0 Comments: The drugs N-Acetylcysteine and Metamizole may falsely deressthis assay. :10 HgA1C , Office (37016) HgA1C , Office 8.0 % (Abnormal) Range: 4.6 - 7.1 :10 Blood Glucose , Office (20698) Blood Glucose , Office 223 (Normal) :24 AFP, Tumor Marker Comments: Is [facility] ? [facility] (refer to report for specific site)refer to report for address and phone number AFP TUMOR 2253 8.5 ng/mL (Abnormal) Range: 0.0-8.3 Comments: Khanh ECLIA methodologyPerformed at: - [facility] [address] [id number] Director: Omar Hood PhD, Phone: [phone] :[phone] CBC W/Diff, Automated Comments: [facility] [address] [place], [place], [id number] Absolute Lymph 1.35 {X10_3/ul} (Normal) Range: 0.83-4.51 Absolute Neut 2.3 {X10_3/uL} (Normal) Range: 2.0-7.7 IM GRAN % 0.500 % (Normal) Range: 0.0-0.9 Comments: IG% - Immature Granulocytes (promyelocytes, myelocytes andmetamyelocytes) > 1% indicates that a LEFT SHIFT is Present. BASO% 0.2 % (Normal) Range: 0-1 EO% 2.4 % (Normal) Range: 0-5 MONO% 9.7 % (Normal) Range: 0-10 LY% 32.6 % (Normal) Range: 19-41 NEUT% 54.6 % (Normal) Range: 47-70 MPV 9.6 fL (Normal) Range: 6.2-12.0 PLT 264 K/mm3 (Normal) Range: 150-450 RDW SD 47.4 fL (Abnormal) Range: 35.1-43.9 RDW CV 13.3 % (Normal) Range: 11.6-14.6 MCHC 33.2 {g/gl} (Normal) Range: 32-36 MCH 33.6 pg (Abnormal) Range: 27.0-32.0 MCV 101.3 fL (Abnormal) Range: 81-99 HCT 38.0 % (Normal) Range: 37-47 HGB 12.6 g/dL (Normal) Range: 12.0-15.0 RBC 3.75 {M/mm3} (Abnormal) Range: 4.2-5.4 WBC 4.1 K/mm3 (Abnormal) Range: 4.4-11.0 86-Lpj-41966:24 Comprehensive Metabolic Profil Comments: [facility] [address] [place], [place], [id number] GAP 9 (Normal) Range: 5-15 CO2 27.0 mmol/L (Normal) Range: 21.0-32.0 CL 101 mmol/L (Normal) Range: 98-107 K 3.9 mmol/L (Normal) Range: 3.5-5.1 NA 137 mmol/L (Normal) Range: 136-145 T BILI 0.50 mg/dL (Normal) Range: 0.20-1.00 ALT 59 U/L (Normal) Range: 12-78 ALK P 125 U/L (Abnormal) Range: 45-117 AST 60 U/L (Abnormal) Range: 15-37 CA 8.6 mg/dL (Normal) Range: 8.5-10.1 A/G 1.2 {RATIO} (Normal) Range: 0.9-2.4 GLOB 2.9 g/dL (Normal) Range: 2.3-3.5 ALB 3.4 g/dL (Normal) Range: 3.4-5.0 T PROT 6.3 g/dL (Abnormal) Range: 6.4-8.2 BUN/CRE 10.8 {RATIO} (Normal) Range: 10-20 EST GFR - AA 106 mL/min (Normal) Comments: GFR Calc EST GFR 87 mL/min (Normal) Comments: Non- GFR Calc CREAT,SERUM 0.74 mg/dL (Normal) Range: 0.55-1.02 Comments: The validity of the calculated GFR AND GFRAA in patients over70 years has not been determined. Clinical correlation isessential. BUN 8 mg/dL (Normal) Range: 7-18 GLU 188 mg/dL (Abnormal) Range: 70-110 Comments: Fasting Glucose result greater than or equal to 126 mg/dLsuggests DIABETES MELLITUS per A.D.A. criteria. 28-Yjv-73460:24 NMR Lipoprofile Comments: [facility] (refer to report for specific site)refer to report for address and phone number LP-IR SCORE 81 (Abnormal) Comments: INSULIN RESISTANCE MARKER <--Insulin Sensitive Insulin Resistant--> Percentile in Reference PopulationInsulin Resistance ScoreLP-IR Score Low 25th 50th 75th High <27 27 45 63 >63LP-IR Score is inaccurate if patient is non-fasting.The LP-IR score is a laboratory developed index that hasbeen associated with insulin resistance and diabetes riskand should be used as one component of a physician'sclinical assessment. The LP-IR score listed above has notbeen cleared by the US Food and Drug Administration.Performed at: [address] [id number] Director: Zia Jarvis MD, Phone: [phone] INS RES/DIAB RK . (Normal) LDL SIZE 20.6 nm (Normal) Comments: INTERPRETATIVE INFORMATION PARTICLE CONCENTRATION AND SIZE <--Lower CVD Risk Highe r CVD Risk--> LDL AND HDL PARTICLES Percentile in Reference Population HDL-P (total) High 75th 50th 25th Low >34.9 34.9 30.5 26.7 <26.7 Small LDL-P Low 25th 50th 75th High <[phone] >839 LDL Size <-Large (Pattern A)-> <-Small (Pattern B)-> 23.0 20.6 20.5 19.0 Small LDL-P and LDL Size are associated with CVD risk, butnot after LDL-P is taken into account .These assays were developed and their performancecharacteristics determined by [facility]. These assayshave not been cleared by the [place] Food and DrugAdministration. The clinical utility of these laboratoryvalues have not been fully established. SMALL LDL-P 416 nmol/L (Normal) HDL-P TOTAL 26.0 umol/L (Abnormal) LD HD PARTICLES . (Normal) LDL-P 917 nmol/L (Normal) Comments: Low < 1000 Moderate 1000 - 1299 Borderline- High 1300 - 1599 High 1600 - 2000 Very High > 2000 TRIGLYCERIDES 132 mg/dL (Normal) Range: 0-149 HDL-C 32 mg/dL (Abnormal) LDL-C 54 mg/dL (Normal) Range: 0-99 Comments: Optimal < 100 Above optimal 100 - 129 Borderline 130 - 159 High 160 - 189 Very high > 189LDL-C is inaccurate if patient is non-fasting. CHOLESTEROL TOT 112 mg/dL (Normal) Range: 100-199 LIPIDS . (Normal) [id number] CBC W/Diff, Automated Comments: [facility] [id number] [place], [address] Absolute Lymph 1.41 {X10_3/ul} (Normal) Range: 0.83-4.51 Absolute Neut 10.2 {X10_3/uL} (Abnormal) Range: 2.0-7.7 IM GRAN % 0.200 % (Normal) Range: 0.0-0.9 Comments: IG% - Immature Granulocytes (promyelocytes, myelocytes andmetamyelocytes) > 1% indicates that a LEFT SHIFT is Present. BASO% 0.0 % (Normal) Range: 0-1 EO% 0.0 % (Normal) Range: 0-5 MONO% 5.3 % (Normal) Range: 0-10 LY% 11.5 % (Abnormal) Range: 19-41 NEUT% 83.0 % (Abnormal) Range: 47-70 MPV 9.7 fL (Normal) Range: 6.2-12.0 PLT 318 K/mm3 (Normal) Range: 150-450 RDW SD 46.9 fL (Abnormal) Range: 35.1-43.9 RDW CV 13.3 % (Normal) Range: 11.6-14.6 MCHC 34.4 {g/gl} (Normal) Range: 32-36 MCH 34.3 pg (Abnormal) Range: 27.0-32.0 MCV 99.7 fL (Abnormal) Range: 81-99 HCT 37.8 % (Normal) Range: 37-47 HGB 13.0 g/dL (Normal) Range: 12.0-15.0 RBC 3.79 {M/mm3} (Abnormal) Range: 4.2-5.4 WBC 12.2 K/mm3 (Abnormal) Range: 4.4-11.0 :53 Comprehensive Metabolic Profil Comments: [facility] [address] [place], [place], [id number] GAP 13 (Normal) Range: 5-15 CO2 24.0 mmol/L (Normal) Range: 21.0-32.0 CL 101 mmol/L (Normal) Range: 98-107 K 3.4 mmol/L (Abnormal) Range: 3.5-5.1 NA 138 mmol/L (Normal) Range: 136-145 T BILI 0.50 mg/dL (Normal) Range: 0.20-1.00 ALT 48 U/L (Normal) Range: 12-78 ALK P 101 U/L (Normal) Range: 45-117 AST 35 U/L (Normal) Range: 15-37 CA 9.2 mg/dL (Normal) Range: 8.5-10.1 A/G 1.1 {RATIO} (Normal) Range: 0.9-2.4 GLOB 3.1 g/dL (Normal) Range: 2.3-3.5 ALB 3.5 g/dL (Normal) Range: 3.4-5.0 T PROT 6.6 g/dL (Normal) Range: 6.4-8.2 BUN/CRE 14.6 {RATIO} (Normal) Range: 10-20 EST GFR - AA 93 mL/min (Normal) Comments: GFR Calc EST GFR 77 mL/min (Normal) Comments: Non- GFR Calc CREAT,SERUM 0.82 mg/dL (Normal) Range: 0.55-1.02 Comments: The validity of the calculated GFR AND GFRAA in patients over70 years has not been determined. Clinical correlation isessential. BUN 12 mg/dL (Normal) Range: 7-18 GLU 216 mg/dL (Abnormal) Range: 70-110 Comments: Glucose result greater than or equal to 200 mg/dLsuggests DIABETES MELLITUS per A.D.A. criteria. [id number] CBC W/Diff, Automated Comments: [facility] [address] [place], [place], [id number] Absolute Lymph 1.92 {X10_3/ul} (Normal) Range: 0.83-4.51 Absolute Neut 3.6 {X10_3/uL} (Normal) Range: 2.0-7.7 IM GRAN % 0.300 % (Normal) Range: 0.0-0.9 Comments: IG% - Immature Granulocytes (promyelocytes, myelocytes andmetamyelocytes) > 1% indicates that a LEFT SHIFT is Present. BASO% 0.3 % (Normal) Range: 0-1 EO% 1.1 % (Normal) Range: 0-5 MONO% 9.2 % (Normal) Range: 0-10 LY% 30.9 % (Normal) Range: 19-41 NEUT% 58.2 % (Normal) Range: 47-70 MPV 9.2 fL (Normal) Range: 6.2-12.0 PLT 276 K/mm3 (Normal) Range: 150-450 RDW SD 50.0 fL (Abnormal) Range: 35.1-43.9 RDW CV 13.7 % (Normal) Range: 11.6-14.6 MCHC 33.2 {g/gl} (Normal) Range: 32-36 MCH 33.7 pg (Abnormal) Range: 27.0-32.0 MCV 101.5 fL (Abnormal) Range: 81-99 HCT 41.6 % (Normal) Range: 37-47 HGB 13.8 g/dL (Normal) Range: 12.0-15.0 RBC 4.10 {M/mm3} (Abnormal) Range: 4.2-5.4 WBC 6.2 K/mm3 (Normal) Range: 4.4-11.0 31-Kwj-76606:42 Comprehensive Metabolic Profil Comments: [facility] [address] [place], [place], [address] GAP 11 (Normal) Range: 5-15 CO2 25.0 mmol/L (Normal) Range: 21.0-32.0 CL 96 mmol/L (Abnormal) Range: 98-107 K 4.1 mmol/L (Normal) Range: 3.5-5.1 NA 132 mmol/L (Abnormal) Range: 136-145 T BILI 0.50 mg/dL (Normal) Range: 0.20-1.00 ALT 57 U/L (Normal) Range: 12-78 ALK P 112 U/L (Normal) Range: 50-136 AST 38 U/L (Abnormal) Range: 15-37 CA 9.4 mg/dL (Normal) Range: 8.5-10.1 A/G 1.2 {RATIO} (Normal) Range: 0.9-2.4 GLOB 3.1 g/dL (Normal) Range: 2.3-3.5 ALB 3.8 g/dL (Normal) Range: 3.4-5.0 T PROT 6.9 g/dL (Normal) Range: 6.4-8.2 BUN/CRE 18.0 {RATIO} (Normal) Range: 10-20 EST GFR - AA 66 mL/min (Normal) Comments: GFR Calc EST GFR 55 mL/min (Abnormal) Comments: Non- GFR Calc CREAT,SERUM 1.11 mg/dL (Normal) Range: 0.55-1.20 Comments: The validity of the calculated GFR AND GFRAA in patients over70 years has not been determined. Clinical correlation isessential. BUN 20 mg/dL (Abnormal) Range: 7-18 GLU 107 mg/dL (Normal) Range: 70-110 :55 Magnesium Comments: Order Date: 06/07/16Order Date: 06/07/16[facility] [address] [place], [place], [address]([id number]) MG 2.0 mg/dL (Normal) Range: 1.8-2.4 :57 CBC W/Diff, Auto - EPLAB Comments: At [facility] Outpatient [facility] Medical Oncologypatients receive CBC w/auto Differential ONLY. Physicianwill place an order for a manual differential or Pathologistreview at his discretion. [facility] OUTPATIENT [facility]. [address] [place] [address] [address] [employer]CREAGE MEASURER: MATEO CASTANEDA DO PH:[phone] [facility]als [facility] [address] [place], [place], [phone] Absolute Lymph 1.38 {X10_3/uL} (Normal) Range: 0.83-4.51 Absolute Neut 3.6 {X10_3/uL} (Normal) Range: 2.0-7.7 BASO% 0.7 % (Normal) Range: 0-1 EO% 2.0 % (Normal) Range: 0-5 MONO% 8.2 % (Normal) Range: 0-10 LY% 24.7 % (Normal) Range: 19-41 NEUT% 64.3 % (Normal) Range: 47-70 MPV 6.8 fL (Normal) Range: 6.2-12.0 PLT 275 K/mm3 (Normal) Range: 150-450 RDW 13.9 % (Normal) Range: 11.6-14.6 MCHC 35.4 g/dL (Normal) Range: 32-36 MCH 36.2 pg (Abnormal) Range: 27.0-32.0 MCV 102.5 fL (Abnormal) Range: 81-99 HCT 40.7 % (Normal) Range: 37-47 HGB 14.4 g/dL (Normal) Range: 12.0-15.0 RBC 3.97 {M/mm3} (Abnormal) Range: 4.2-5.4 WBC 5.6 K/mm3 (Normal) Range: 4.4-11.0 :56 Comprehensive Metabolic Profil Comments: Order Date: 06/07/16OV Order #: [id number] Specimen #1, #2 or #3? 1 [id number] [address] [place], [address] GAP 13 (Normal) Range: 5-15 CO2 24.0 mmol/L (Normal) Range: 21.0-32.0 CL 102 mmol/L (Normal) Range: 98-107 K 4.1 mmol/L (Normal) Range: 3.5-5.1 NA 139 mmol/L (Normal) Range: 136-145 T BILI 0.40 mg/dL (Normal) Range: 0.20-1.00 ALT 58 U/L (Normal) Range: 12-78 ALK P 131 U/L (Normal) Range: 50-136 AST 34 U/L (Normal) Range: 15-37 CA 9.5 mg/dL (Normal) Range: 8.5-10.1 A/G 1.2 {RATIO} (Normal) Range: 0.9-2.4 GLOB 3.1 g/dL (Normal) Range: 2.3-3.5 ALB 3.6 g/dL (Normal) Range: 3.4-5.0 T PROT 6.7 g/dL (Normal) Range: 6.4-8.2 BUN/CRE 17.8 {RATIO} (Normal) Range: 10-20 EST GFR - AA 74 mL/min (Normal) Comments: GFR Calc EST GFR 61 mL/min (Normal) Comments: Non- GFR Calc CREAT,SERUM 1.01 mg/dL (Normal) Range: 0.55-1.20 Comments: The validity of the calculated GFR AND GFRAA in patients over70 years has not been determined. Clinical correlation isessential. BUN 18 mg/dL (Normal) Range: 7-18 GLU 167 mg/dL (Abnormal) Range: 70-110 Comments: Fasting Glucose result greater than or equal to 126 mg/dLsuggests DIABETES MELLITUS per A.D.A. criteria. :56 LDH 238 U/L (Normal) Comments: Order Date: 06/07/16 Order #: [id number] Specimen #1, #2 or #3? [id number] [place] [id number] [place], [address] Range: 84-246 :56 Magnesium Comments: Order Date: 06/07/16 Order #: [id number] Specimen #1, #2 or #3? [id number] [place] [id number] [place], [address] MG 1.5 mg/dL (Abnormal) Range: 1.8-2.4 :56 Uric Acid Comments: Order Date: 06/07/16 Order #: [id number] Specimen #1, #2 or #3? [address] [place] [id number] [place], [address] URIC 4.8 mg/dL (Normal) Range: 2.6-6.0 Comments: The drugs N-Acetylcysteine and Metamizole may falsely deressthis assay. :30 Liver Profile Comments: [facility] [address] [place], [address] D BILI 0.13 mg/dL (Normal) Range: 0.00-0.30 T BILI 0.40 mg/dL (Normal) Range: 0.20-1.00 ALT 60 U/L (Normal) Range: 12-78 ALK P 126 U/L (Normal) Range: 50-136 AST 37 U/L (Normal) Range: 15-37 GLOB 2.7 g/dL (Normal) Range: 2.3-3.5 ALB 3.4 g/dL (Normal) Range: 3.4-5.0 T PROT 6.1 g/dL (Abnormal) Range: 6.4-8.2 :33 CBC W/AUTO DIFF WBC Comments: PATIENT NOT FASTINGPERFORMED BY: REINALDO [facility]Tr[facility] Hospital[facility]103 [facility] [id number] Information: NURSE DRAW (12503) Immature Grans (Abs) 0.0 {x10E3/uL} (Normal) Range: 0.0-0.1 Immature Granulocytes 0 % (Normal) Baso (Absolute) 0.0 {x10E3/uL} (Normal) Range: 0.0-0.2 Eos (Absolute) 0.1 {x10E3/uL} (Normal) Range: 0.0-0.4 Monocytes(Absolute) 0.4 {x10E3/uL} (Normal) Range: 0.1-0.9 Lymphs (Absolute) 1.4 {x10E3/uL} (Normal) Range: 0.7-3.1 Neutrophils (Absolute) 2.5 {x10E3/uL} (Normal) Range: 1.4-7.0 Basos 1 % (Normal) Eos 1 % (Normal) Monocytes 9 % (Normal) Lymphs 32 % (Normal) Neutrophils 57 % (Normal) Platelets 266 {x10E3/uL} (Normal) Range: 150-379 RDW 14.8 % (Normal) Range: 12.3-15.4 MCHC 33.3 g/dL (Normal) Range: 31.5-35.7 MCH 33.7 pg (Abnormal) Range: 26.6-33.0 MCV 101 fL (Abnormal) Range: 79-97 Hematocrit 41.1 % (Normal) Range: 34.0-46.6 Hemoglobin 13.7 g/dL (Normal) Range: 11.1-15.9 RBC 4.07 {x10E6/uL} (Normal) Range: 3.77-5.28 WBC 4.4 {x10E3/uL} (Normal) Range: 3.4-10.8 :33 METABOLIC PANEL, COMPREHENSIVE Comments: PATIENT NOT FASTINGPERFORMED BY: POPVOXTrinit[facility] HospitalLtdgmh4735 [facility] [id number] ([id number]) ALT (SGPT) 41 [iU]/L (Abnormal) Range: 0-32 AST (SGOT) 33 [iU]/L (Normal) Range: 0-40 Alkaline Phosphatase, S 91 [iU]/L (Normal) Range: 39-117 Bilirubin, Total 0.8 mg/dL (Normal) Range: 0.0-1.2 A/G Ratio 2.3 (Normal) Range: 1.1-2.5 Globulin, Total 1.9 g/dL (Normal) Range: 1.5-4.5 Albumin, Serum 4.4 g/dL (Normal) Range: 3.5-5.5 Protein, Total, Serum 6.3 g/dL (Normal) Range: 6.0-8.5 Calcium, Serum 9.7 mg/dL (Normal) Range: 8.7-10.2 Carbon Dioxide, Total 23 mmol/L (Normal) Range: 18-29 Chloride, Serum 94 mmol/L (Abnormal) Range: 97-106 Potassium, Serum 4.1 mmol/L (Normal) Range: 3.5-5.2 Sodium, Serum 138 mmol/L (Normal) Range: 136-144 BUN/Creatinine Ratio 14 (Normal) Range: 9-23 eGFR If Africn Am 65 mL/min/1.73 (Normal) eGFR If NonAfricn Am 57 mL/min/1.73 (Abnormal) Creatinine, Serum 1.12 mg/dL (Abnormal) Range: 0.57-1.00 BUN 16 mg/dL (Normal) Range: 6-24 Glucose, Serum 142 mg/dL (Abnormal) Range: 65-99 :09 HgA1C , Office (95143) HgA1C , Office 7.0 % (Normal) Range: 4.6 - 7.1 :14 AFP, Tumor Marker Comments: [facility] ? [facility] (refer to report for specific site)refer to report for address and phone number AFP TUMOR 2253 7.7 ng/mL (Normal) Range: 0.0-8.3 Comments: Khanh ECLIA methodologyPerformed at: CB - [facility] [address] [id number] Director: Omar Hood PhD, Phone: [phone] :[phone] CBC W/Diff, Automated Comments: [facility] [address] [place], [address] ; will review on 05/17 Absolute Lymph 1.25 {X10_3/ul} (Normal) Range: 0.83-4.51 Absolute Neut 2.3 {X10_3/uL} (Normal) Range: 2.0-7.7 IM GRAN % 0.000 % (Normal) Range: 0.0-0.9 Comments: IG% - Immature Granulocytes (promyelocytes, myelocytes andmetamyelocytes) > 1% indicates that a LEFT SHIFT is Present. BASO% 0.5 % (Normal) Range: 0-1 EO% 3.0 % (Normal) Range: 0-5 MONO% 12.9 % (Abnormal) Range: 0-10 LY% 29.2 % (Normal) Range: 19-41 NEUT% 54.4 % (Normal) Range: 47-70 MPV 9.3 fL (Normal) Range: 6.2-12.0 PLT 268 K/mm3 (Normal) Range: 150-450 RDW SD 51.9 fL (Abnormal) Range: 35.1-43.9 RDW CV 14.6 % (Normal) Range: 11.6-14.6 MCHC 33.3 {g/gl} (Normal) Range: 32-36 MCH 33.8 pg (Abnormal) Range: 27.0-32.0 MCV 101.3 fL (Abnormal) Range: 81-99 HCT 39.0 % (Normal) Range: 37-47 HGB 13.0 g/dL (Normal) Range: 12.0-15.0 RBC 3.85 {M/mm3} (Abnormal) Range: 4.2-5.4 WBC 4.3 K/mm3 (Abnormal) Range: 4.4-11.0 :14 Comprehensive Metabolic Profil Comments: [facility] [address] [place], [place], [id number] GAP 7 (Normal) Range: 5-15 CO2 28.0 mmol/L (Normal) Range: 21.0-32.0 CL 101 mmol/L (Normal) Range: 98-107 K 4.4 mmol/L (Normal) Range: 3.5-5.1 NA 136 mmol/L (Normal) Range: 136-145 T BILI 0.60 mg/dL (Normal) Range: 0.20-1.00 ALT 66 U/L (Normal) Range: 12-78 ALK P 95 U/L (Normal) Range: 50-136 AST 60 U/L (Abnormal) Range: 15-37 CA 8.8 mg/dL (Normal) Range: 8.5-10.1 A/G 1.2 {RATIO} (Normal) Range: 0.9-2.4 GLOB 2.9 g/dL (Normal) Range: 2.3-3.5 ALB 3.6 g/dL (Normal) Range: 3.4-5.0 T PROT 6.5 g/dL (Normal) Range: 6.4-8.2 BUN/CRE 11.2 {RATIO} (Normal) Range: 10-20 EST GFR - AA 85 mL/min (Normal) Comments: GFR Calc EST GFR 71 mL/min (Normal) Comments: Non- GFR Calc CREAT,SERUM 0.89 mg/dL (Normal) Range: 0.55-1.20 Comments: The validity of the calculated GFR AND GFRAA in patients over70 years has not been determined. Clinical correlation isessential. BUN 10 mg/dL (Normal) Range: 7-18 GLU 147 mg/dL (Abnormal) Range: 70-110 Comments: Fasting Glucose result greater than or equal to 126 mg/dLsuggests DIABETES MELLITUS per A.D.A. criteria. 56-Mhu-30996:14 Lipid Profile Comments: [facility] [address] [place], [address] VLDL 36 mg/dL (Normal) Range: 5-40 LDL 73 mg/dL (Normal) Range: 0-130 HDL 33 mg/dL (Abnormal) Comments: The drugs N-Acetylcysteine and Metamizole may falsely deressthis assay. Reference Range HDL <40 mg/dL Low HDL Cholesterol HDL >or= 60 mg/dL High HDL Cholesterol TRIG 180 mg/dL (Normal) Comments: The drugs N-Acetylcysteine and Metamizole may falsely deressthis assay.Serum Triglycerides Reference Interval Normal <150 mg/dL Borderline high 150 - 199 mg/dL High 200 - 499 mg/dL Very High > or = 500 mg/dL CHOL 142 mg/dL (Normal) Comments: <200 mg/dL Desirable 200-240 mg/dL Borderline >240 mg/dL High Risk :14 Microalb:Creat Ratio,Random UR Comments: [facility] [address] [place], [id number] ; will review on 05/17 MALB:CREAT 14.6 {mg/g_CRE} (Normal) MICROALBUMIN,UR 23.4 mg/L (Normal) UR CREAT 160.00 mg/dL (Normal) :14 Thyroid Stim Hormone (TSH) Comments: [facility] [address] [place], [address] TSH 1.89 {uIU/mL} (Normal) Range: 0.358-3.74 :14 Vitamin D,25 Hydroxy Comments: [facility] [address] [place], [id number] ; will review on 05/17 Vitamin D 25-OH 53.2 ng/mL (Normal) Comments: Vitamin D 25(OH) Status Range Deficiency <20 ng/mL (50nmol/L) Insuffciency 20 - 30 ng/mL (50 - 75 nmol/L) Sufficiency 30 - 100 ng/mL (75 - 250 nmol/L) Toxicity >100 ng/mL (>250 nmol/L) :23 CBC W/Diff, Automated Comments: [facility] [address] [facility] [place], [address] Absolute Lymph 1.65 {X10_3/ul} (Normal) Range: 0.83-4.51 Absolute Neut 2.0 {X10_3/uL} (Normal) Range: 2.0-7.7 IM GRAN % 0.500 % (Normal) Range: 0.0-0.9 Comments: IG% - Immature Granulocytes (promyelocytes, myelocytes andmetamyelocytes) > 1% indicates that a LEFT SHIFT is Present. BASO% 0.5 % (Normal) Range: 0-1 EO% 3.0 % (Normal) Range: 0-5 MONO% 12.8 % (Abnormal) Range: 0-10 LY% 37.7 % (Normal) Range: 19-41 NEUT% 45.5 % (Abnormal) Range: 47-70 MPV 9.4 fL (Normal) Range: 6.2-12.0 PLT 256 K/mm3 (Normal) Range: 150-450 RDW SD 49.1 fL (Abnormal) Range: 35.1-43.9 RDW CV 14.3 % (Normal) Range: 11.6-14.6 MCHC 34.0 {g/gl} (Normal) Range: 32-36 MCH 33.4 pg (Abnormal) Range: 27.0-32.0 MCV 98.3 fL (Normal) Range: 81-99 HCT 40.3 % (Normal) Range: 37-47 HGB 13.7 g/dL (Normal) Range: 12.0-15.0 RBC 4.10 {M/mm3} (Abnormal) Range: 4.2-5.4 WBC 4.4 K/mm3 (Normal) Range: 4.4-11.0 80-Wme-28481:23 Comprehensive Metabolic Profil Comments: [facility] [address] [place], [place], [id number] GAP 9 (Normal) Range: 5-15 CO2 30.0 mmol/L (Normal) Range: 21.0-32.0 CL 96 mmol/L (Abnormal) Range: 98-107 K 3.2 mmol/L (Abnormal) Range: 3.5-5.1 NA 135 mmol/L (Abnormal) Range: 136-145 T BILI 0.60 mg/dL (Normal) Range: 0.20-1.00 ALT 76 U/L (Normal) Range: 12-78 ALK P 121 U/L (Normal) Range: 50-136 AST 60 U/L (Abnormal) Range: 15-37 CA 9.0 mg/dL (Normal) Range: 8.5-10.1 A/G 1.4 {RATIO} (Normal) Range: 0.9-2.4 GLOB 2.8 g/dL (Normal) Range: 2.3-3.5 ALB 3.9 g/dL (Normal) Range: 3.4-5.0 T PROT 6.7 g/dL (Normal) Range: 6.4-8.2 BUN/CRE 12.1 {RATIO} (Normal) Range: 10-20 EST GFR - AA 83 mL/min (Normal) Comments: GFR Calc EST GFR 69 mL/min (Normal) Comments: Non- GFR Calc CREAT,SERUM 0.91 mg/dL (Normal) Range: 0.55-1.20 Comments: The validity of the calculated GFR AND GFRAA in patients over70 years has not been determined. Clinical correlation isessential. BUN 11 mg/dL (Normal) Range: 7-18 GLU 179 mg/dL (Abnormal) Range: 70-110 Comments: Fasting Glucose result greater than or equal to 126 mg/dLsuggests DIABETES MELLITUS per A.D.A. criteria. :07 HgA1C , Office (20108) HgA1C , Office 8.5 % (Abnormal) Range: 4.6 - 7.1 :15 CBC W/Diff, Automated Comments: [facility] [address] [place], [address] Absolute Lymph 1.76 {X10_3/ul} (Normal) Range: 0.83-4.51 Absolute Neut 4.1 {X10_3/uL} (Normal) Range: 2.0-7.7 IM GRAN % 0.100 % (Normal) Range: 0.0-0.9 Comments: IG% - Immature Granulocytes (promyelocytes, myelocytes andmetamyelocytes) > 1% indicates that a LEFT SHIFT is Present. BASO% 0.3 % (Normal) Range: 0-1 EO% 1.9 % (Normal) Range: 0-5 MONO% 9.7 % (Normal) Range: 0-10 LY% 26.3 % (Normal) Range: 19-41 NEUT% 61.7 % (Normal) Range: 47-70 MPV 9.3 fL (Normal) Range: 6.2-12.0 PLT 303 K/mm3 (Normal) Range: 150-450 RDW SD 49.2 fL (Abnormal) Range: 35.1-43.9 RDW CV 13.8 % (Normal) Range: 11.6-14.6 MCHC 34.1 {g/gl} (Normal) Range: 32-36 MCH 33.4 pg (Abnormal) Range: 27.0-32.0 MCV 98.1 fL (Normal) Range: 81-99 HCT 40.5 % (Normal) Range: 37-47 HGB 13.8 g/dL (Normal) Range: 12.0-15.0 RBC 4.13 {M/mm3} (Abnormal) Range: 4.2-5.4 WBC 6.7 K/mm3 (Normal) Range: 4.4-11.0 99-Qqg-74731:15 Comprehensive Metabolic Profil Comments: [facility] [address] [place], [place], [id number] GAP 13 (Normal) Range: 5-15 CO2 23.0 mmol/L (Normal) Range: 21.0-32.0 CL 99 mmol/L (Normal) Range: 98-107 K 3.6 mmol/L (Normal) Range: 3.5-5.1 NA 135 mmol/L (Abnormal) Range: 136-145 T BILI 0.60 mg/dL (Normal) Range: 0.20-1.00 ALT 44 U/L (Normal) Range: 12-78 ALK P 126 U/L (Normal) Range: 50-136 AST 42 U/L (Abnormal) Range: 15-37 CA 8.8 mg/dL (Normal) Range: 8.5-10.1 A/G 1.2 {RATIO} (Normal) Range: 0.9-2.4 GLOB 3.1 g/dL (Normal) Range: 2.3-3.5 ALB 3.6 g/dL (Normal) Range: 3.4-5.0 T PROT 6.7 g/dL (Normal) Range: 6.4-8.2 BUN/CRE 16.6 {RATIO} (Normal) Range: 10-20 EST GFR - AA 84 mL/min (Normal) Comments: GFR Calc EST GFR 70 mL/min (Normal) Comments: Non- GFR Calc CREAT,SERUM 0.90 mg/dL (Normal) Range: 0.55-1.20 Comments: The validity of the calculated GFR AND GFRAA in patients over70 years has not been determined. Clinical correlation isessential. BUN 15 mg/dL (Normal) Range: 7-18 GLU 221 mg/dL (Abnormal) Range: 70-110 Comments: Glucose result greater than or equal to 200 mg/dLsuggests DIABETES MELLITUS per A.D.A. criteria. :15 Lipid Profile Comments: [facility] [address] [place], [place], [address] VLDL 45 mg/dL (Abnormal) Range: 5-40 LDL 46 mg/dL (Normal) Range: 0-130 HDL 27 mg/dL (Abnormal) Comments: Reference Range HDL <40 mg/dL Low HDL Cholesterol HDL >or= 60 mg/dL High HDL Cholesterol TRIG 227 mg/dL (Abnormal) Comments: Serum Triglycerides Reference Interval Normal <150 mg/dL Borderline high 150 - 199 mg/dL High 200 - 499 mg/dL Very High > or = 500 mg/dL CHOL 118 mg/dL (Normal) Comments: <200 mg/dL Desirable 200-240 mg/dL Borderline >240 mg/dL High Risk :15 Vitamin D,25 Hydroxy Comments: [facility] [address] [facility] [address] [place], [place], [address] Vitamin D 25-OH 28.8 ng/mL (Normal) Comments: Vitamin D 25(OH) Status Range Deficiency <20 ng/mL (50nmol/L) Insuffciency 20 - 30 ng/mL (50 - 75 nmol/L) Sufficiency 30 - 100 ng/mL (75 - 250 nmol/L) Toxicity >100 ng/mL (>250 nmol/L); ADDENDA: non-emergent till apt :35 CBC W/Diff, Automated Comments: [facility] [address] [facility] [address] [place], [place], [id number] Absolute Lymph 1.26 {X10_3/ul} (Normal) Range: 0.83-4.51 Absolute Neut 2.8 {X10_3/uL} (Normal) Range: 2.0-7.7 IM GRAN % 0.200 % (Normal) Range: 0.0-0.9 Comments: IG% - Immature Granulocytes (promyelocytes, myelocytes andmetamyelocytes) > 1% indicates that a LEFT SHIFT is Present. BASO% 0.2 % (Normal) Range: 0-1 EO% 2.5 % (Normal) Range: 0-5 MONO% 11.9 % (Abnormal) Range: 0-10 LY% 26.3 % (Normal) Range: 19-41 NEUT% 58.9 % (Normal) Range: 47-70 MPV 9.2 fL (Normal) Range: 6.2-12.0 PLT 281 K/mm3 (Normal) Range: 150-450 RDW SD 51.2 fL (Abnormal) Range: 35.1-43.9 RDW CV 14.4 % (Normal) Range: 11.6-14.6 MCHC 34.3 {g/gl} (Normal) Range: 32-36 MCH 33.7 pg (Abnormal) Range: 27.0-32.0 MCV 98.5 fL (Normal) Range: 81-99 HCT 39.7 % (Normal) Range: 37-47 HGB 13.6 g/dL (Normal) Range: 12.0-15.0 RBC 4.03 {M/mm3} (Abnormal) Range: 4.2-5.4 WBC 4.8 K/mm3 (Normal) Range: 4.4-11.0 20-Peo-33253:35 Comprehensive Metabolic Profil Comments: [facility] [address] [place], [id number] GAP 14 (Normal) Range: 5-15 CO2 26.0 mmol/L (Normal) Range: 21.0-32.0 CL 96 mmol/L (Abnormal) Range: 98-107 K 3.4 mmol/L Range: 3.5-5.1 (Abnormal) NA 136 mmol/L (Normal) Range: 136-145 T BILI 0.50 mg/dL (Normal) Range: 0.20-1.00 ALT 38 U/L (Normal) Range: 12-78 ALK P 143 U/L (Abnormal) Range: 50-136 AST 22 U/L (Normal) Range: 15-37 CA 9.1 mg/dL (Normal) Range: 8.5-10.1 A/G 1.2 {RATIO} (Normal) Range: 0.9-2.4 GLOB 3.2 g/dL (Normal) Range: 2.3-3.5 ALB 3.7 g/dL (Normal) Range: 3.4-5.0 T PROT 6.9 g/dL (Normal) Range: 6.4-8.2 BUN/CRE 12.2 {RATIO} Range: 10-20 (Normal) EST GFR - AA 77 mL/min (Normal) Comments: GFR Calc EST GFR 63 mL/min (Normal) Comments: Non- GFR Calc CREAT,SERUM 0.98 mg/dL (Normal) Range: 0.55-1.20 Comments: The validity of the calculated GFR AND GFRAA in patients over70 years has not been determined. Clinical correlation isessential. BUN 12 mg/dL (Normal) Range: 7-18 GLU 267 mg/dL (Abnormal) Range: 70-110 Comments: Glucose result greater than or equal to 200 mg/dLsuggests DIABETES MELLITUS per A.D.A. criteria. [id number] ASPIRATION (SLIDES ONLY) See Note (Normal) Comments: [facility] [id number] [place], [place], [id number] 0 Comments: Patient: IFEOMA ASHRAF : 1965 (50/F) Acct Num: [id number] Phys: Janelle KING,Alejandro Unit Num: [id number] Loc: LABSPEC Specimen: [id number] Received: 01/06/16 - 1129 Spec Ty pe: ASPIRATION TISSUES TISSUES: COMMENT Correlation with clinical, radiologic findings and appropriate follow up are necessary. CYTOLOGY GROSS Received are 10 smears labeled wit h the patient's name and designated per the requisition as fine needle aspiration left thyroid. Submitted for staining. 01/06/16 TC:5 CPT:03440 CYTOLOGY STUDY Slides are reviewed. The spe cimen contains the minimal number of follicular cells required for adequacy. The specimen is paucicellular and consists of benign follicular cells and diluted colloid. DIAGNOSIS CYTOLOGY Left th yroid nodule, ultrasound-guided FNA (smears): Consistent with benign colloid nodule. See cytology study and comment. MICHELLE:garrison 01/07/16 HEADER OPERATION: Ultrasound guided fine needle as piration left thyroid PRE-OP DIAGNOSIS: E04.2 multinodular goiter TISSUE SUBMITTED: Fine needle aspiration left thyroid Signed Toni Yepez 01/07/16 <signature on file> [id number] CBC W/Diff, Auto - EPLAB Comments: At [facility] Oncologypatients receive CBC w/auto Differential ONLY. Physicianwill place an order for a manual differential or Pathologistreview at his discretion. [facility]. [address] [place] [address] [address] [employer]AS[employer]ER: MATEO CASTANEDA DO PH:[phone] Hospitals [facility]aut [facility] Center [id number] [place], [address] Absolute Lymph 1.49 {X10_3/uL} (Normal) Range: 0.83-4.51 Absolute Neut 2.6 {X10_3/uL} (Normal) Range: 2.0-7.7 BASO% 0.8 % (Normal) Range: 0-1 EO% 2.1 % (Normal) Range: 0-5 MONO% 7.7 % (Normal) Range: 0-10 LY% 32.4 % (Normal) Range: 19-41 NEUT% 57.0 % (Normal) Range: 47-70 MPV 6.3 fL (Normal) Range: 6.2-12.0 PLT 259 K/mm3 (Normal) Range: 150-450 RDW 13.2 % (Normal) Range: 11.6-14.6 MCHC 34.4 g/dL (Normal) Range: 32-36 MCH 34.3 pg (Abnormal) Range: 27.0-32.0 MCV 99.5 fL (Abnormal) Range: 81-99 HCT 40.2 % (Normal) Range: 37-47 HGB 13.8 g/dL (Normal) Range: 12.0-15.0 RBC 4.04 {M/mm3} (Abnormal) Range: 4.2-5.4 WBC 4.6 K/mm3 (Normal) Range: 4.4-11.0 :28 Comprehensive Metabolic Profil Comments: Serial Specimen #1, #2 or #3? 1[facility] [facility] [address] [place], [address] GAP 8 (Normal) Range: 5-15 CO2 26.0 mmol/L (Normal) Range: 21.0-32.0 CL 104 mmol/L (Normal) Range: 98-107 K 3.7 mmol/L (Normal) Range: 3.5-5.1 NA 138 mmol/L (Normal) Range: 136-145 T BILI 0.40 mg/dL (Normal) Range: 0.20-1.00 ALT 58 U/L (Normal) Range: 12-78 ALK P 119 U/L (Normal) Range: 50-136 AST 33 U/L (Normal) Range: 15-37 CA 8.9 mg/dL (Normal) Range: 8.5-10.1 A/G 1.1 {RATIO} (Normal) Range: 0.9-2.4 GLOB 3.2 g/dL (Normal) Range: 2.3-3.5 ALB 3.6 g/dL (Normal) Range: 3.4-5.0 T PROT 6.8 g/dL (Normal) Range: 6.4-8.2 BUN/CRE 10.9 {RATIO} (Normal) Range: 10-20 EST GFR - AA 83 mL/min (Normal) Comments: GFR Calc EST GFR 69 mL/min (Normal) Comments: Non- GFR Calc CREAT,SERUM 0.92 mg/dL (Normal) Range: 0.55-1.20 Comments: The validity of the calculated GFR AND GFRAA in patients over70 years has not been determined. Clinical correlation isessential. BUN 10 mg/dL (Normal) Range: 7-18 GLU 171 mg/dL (Abnormal) Range: 70-110 Comments: Fasting Glucose result greater than or equal to 126 mg/dLsuggests DIABETES MELLITUS per A.D.A. criteria. [id number]-Jmx-[id number]:28 LDH 213 U/L (Normal) Comments: Serial Specimen #1, #2 or #3? [address] [place] [address] [id number] [place], [place], [id number] Range: 84-246 4-Qyo-590903:28 Magnesium Comments: Serial Specimen #1, #2 or #3? [address] [place] [address] [id number] [place], [place], [id number] MG 1.6 mg/dL (Abnormal) Range: 1.8-2.4 8-Mdj-097335:28 Uric Acid Comments: Serial Specimen #1, #2 or #3? 1[facility] [address] V[place], [id number] URIC 4.8 mg/dL (Normal) Range: 2.6-6.0 :36 Miscellaneous Lab Procedure Comments: Comments: [id number] URINE TOX,RUN LOWEST TESTTest(s) Ordered: [id number] URINE TOX,RUN LOWEST TESTWReg[facility] [address] [place], [id number] [facility] Comments: [id number] 6+OXYCODONE-BUND (ng/mL)DRUG RESULT SCREEN CUTOFF____ Amphetamines,Urine Negat LAB (Normal) scott ng/mL 1000Amphetamine test includes Amphetamine and Methamphetamine.Barbiturates Negative ng/mL 200Benzodiazepines Negative ng/mL 200Cannabinoid TEST Negative ng/mL 20Cocaine (Metab) Negative ng/mL 300Opiates Positive ng/mL 300 Opiates test includes Codeine, Morphine, Hydromorphone, [place] codone.Please Note:Confirmation performed by Mass SpectrometryCodeine NegativeMorphine NegativeHydromorphone NegativeHydrocodone Positive Hydrocodone Confirm 1950 ng/mL 300Oxycodone/Oxymorphone,Urine Negative ng/mL 300 Test includes Oxydodone and Oxymorphone. TESTI NG PERFORMED AT [employer] [facility] [employer]. ORIGINAL REPORT ON FILE IN LAB CONTAINS ADDITIONAL TEST SITE INFORMATION. :36 Urine Drug Screen (VISTA) Comments: Comments: [id number] URINE TOX,RUN LOWEST TESTList of Drugs Taken or Suspected? UN[facility]WReg[facility] [address] [place], [place], [id number] ; ordered by Basali THC NEGATIVE (Normal) PCP NEGATIVE (Normal) OPIATES POSITIVE (Abnormal) METHADONE NEGATIVE (Normal) ECSTACY NEGATIVE (Normal) COCAINE NEGATIVE (Normal) BENZODIAZIPINE NEGATIVE (Normal) BARBITIURATES NEGATIVE (Normal) AMPHETAMINES NEGATIVE (Normal) VISTA UDS PH 5 (Normal) TO BE CONFIRMED (Normal) Comments: CONFIRMATORY TESTING FOR ALL POSITIVE URINE DRUG SCREENRESULTS WILL ONLY BE SENT OUT UPON PHYSICIAN ORDER.VISTA Urine Drug Screen methods provide only preliminaryanalytical test results. A more specific alternate chemicalmethod must be used in order to obtain a confirmedanalytical result. Gas chromatography/mass spectrometery(GC/MS) is the preferred confirmatory method. Clinicalconsideration and profe ssional judgement should be appliedto any drug of abuse test result, particularly whenpreliminary positive results are used.URINE TCA TESTING MUST BE ORDERED SEPARATELY. USE TESTMNEMONIC: UTCA 90-Mje-340401:20 HgA1C , Office (50318) HgA1C , Office 7.3 % (Abnormal) Range: 4.6 - 7.1 :13 AFP, Tumor Marker Comments: Is [facility] ? [facility] (refer to report for specific site)refer to report for address and phone number AFP TUMOR 2253 6.4 ng/mL (Normal) Range: 0.0-8.3 Comments: [place] ECLIA methodologyPerformed at: CB - [facility] [address] [id number] Director: Omar Hood PhD, Phone: [phone] :[phone] CBC W/Diff, Automated Comments: [facility] [address] [place], [address] Absolute Lymph 1.59 {X10_3/ul} (Normal) Range: 0.83-4.51 Absolute Neut 3.2 {X10_3/uL} (Normal) Range: 2.0-7.7 IM GRAN % 0.400 % (Normal) Range: 0.0-0.9 Comments: IG% - Immature Granulocytes (promyelocytes, myelocytes andmetamyelocytes) > 1% indicates that a LEFT SHIFT is Present. BASO% 0.4 % (Normal) Range: 0-1 EO% 1.9 % (Normal) Range: 0-5 MONO% 7.9 % (Normal) Range: 0-10 LY% 29.8 % (Normal) Range: 19-41 NEUT% 59.6 % (Normal) Range: 47-70 MPV 9.8 fL (Normal) Range: 6.2-12.0 PLT 228 K/mm3 (Normal) Range: 150-450 RDW SD 52.8 fL (Abnormal) Range: 35.1-43.9 RDW CV 14.4 % (Normal) Range: 11.6-14.6 MCHC 32.9 {g/gl} (Normal) Range: 32-36 MCH 33.3 pg (Abnormal) Range: 27.0-32.0 MCV 100.9 fL (Abnormal) Range: 81-99 HCT 42.8 % (Normal) Range: 37-47 HGB 14.1 g/dL (Normal) Range: 12.0-15.0 RBC 4.24 {M/mm3} (Normal) Range: 4.2-5.4 WBC 5.3 K/mm3 (Normal) Range: 4.4-11.0 46-Mvb-79001:13 Comprehensive Metabolic Profil Comments: [facility] [address] [place], [place], [id number] GAP 10 (Normal) Range: 5-15 CO2 24.0 mmol/L (Normal) Range: 21.0-32.0 CL 104 mmol/L (Normal) Range: 98-107 K 4.3 mmol/L (Normal) Range: 3.5-5.1 Comments: Slight Hemolysis, Result may be falsely increased. NA 138 mmol/L (Normal) Range: 136-145 T BILI 0.60 mg/dL (Normal) Range: 0.20-1.00 ALT 50 U/L (Normal) Range: 12-78 ALK P 108 U/L (Normal) Range: 50-136 AST 44 U/L (Abnormal) Range: 15-37 Comments: slight Hemolysis, Result may be falsely increased. CA 8.7 mg/dL (Normal) Range: 8.5-10.1 A/G 1.2 {RATIO} (Normal) Range: 0.9-2.4 GLOB 3.1 g/dL (Normal) Range: 2.3-3.5 ALB 3.7 g/dL (Normal) Range: 3.4-5.0 T PROT 6.8 g/dL (Normal) Range: 6.4-8.2 BUN/CRE 11.0 {RATIO} (Normal) Range: 10-20 EST GFR - AA 84 mL/min (Normal) Comments: GFR Calc EST GFR 69 mL/min (Normal) Comments: Non- GFR Calc CREAT,SERUM 0.91 mg/dL (Normal) Range: 0.55-1.20 Comments: The validity of the calculated GFR AND GFRAA in patients over70 years has not been determined. Clinical correlation isessential. BUN 10 mg/dL (Normal) Range: 7-18 GLU 140 mg/dL (Abnormal) Range: 70-110 Comments: Fasting Glucose result greater than or equal to 126 mg/dLsuggests DIABETES MELLITUS per A.D.A. criteria. :13 Lipid Profile Comments: [facility] [address] [facility] [place], [address] ; non-emergent and pt has a f/u soon VLDL 29 mg/dL (Normal) Range: 5-40 LDL 75 mg/dL (Normal) Range: 0-130 HDL 37 mg/dL (Abnormal) Comments: Reference Range HDL <40 mg/dL Low HDL Cholesterol HDL >or= 60 mg/dL High HDL Cholesterol TRIG 145 mg/dL (Normal) Comments: Serum Triglycerides Reference Interval Normal <150 mg/dL Borderline high 150 - 199 mg/dL High 200 - 499 mg/dL Very High > or = 500 mg/dL CHOL 141 mg/dL (Normal) Comments: <200 mg/dL Desirable 200-240 mg/dL Borderline >240 mg/dL High Risk :13 Microalb:Creat Ratio,Random UR Comments: [facility] [address] [place], [address] MALB:CREAT 17.0 {mg/g_CRE} (Normal) MICROALBUMIN,UR 43.7 mg/L (Normal) UR CREAT 257.00 mg/dL (Normal) :13 Thyroid Stim Hormone (TSH) Comments: [facility] [address] [place], [id number] TSH 1.82 {uIU/mL} (Normal) Range: 0.358-3.74 :13 Vitamin D,25 Hydroxy Comments: [facility] [address] [place], [id number] ; will review at 11/10 appt Vitamin D 25-OH 39.8 ng/mL (Normal) Comments: Vitamin D 25(OH) Status Range Deficiency <20 ng/mL (50nmol/L) Insuffciency 20 - 30 ng/mL (50 - 75 nmol/L) Sufficiency 30 - 100 ng/mL (75 - 250 nmol/L) Toxicity >100 ng/mL (>250 nmol/L) :40 CBC W/Diff, Automated Comments: [facility] [address] [place], [address] Absolute Lymph 1.47 {X10_3/ul} (Normal) Range: 0.83-4.51 Absolute Neut 2.6 {X10_3/uL} (Normal) Range: 2.0-7.7 IM GRAN % 0.000 % (Normal) Range: 0.0-0.9 Comments: IG% - Immature Granulocytes (promyelocytes, myelocytes andmetamyelocytes) > 1% indicates that a LEFT SHIFT is Present. BASO% 0.6 % (Normal) Range: 0-1 EO% 2.5 % (Normal) Range: 0-5 MONO% 10.6 % (Abnormal) Range: 0-10 LY% 31.2 % (Normal) Range: 19-41 NEUT% 55.1 % (Normal) Range: 47-70 MPV 9.9 fL (Normal) Range: 6.2-12.0 PLT 298 K/mm3 (Normal) Range: 150-450 RDW SD 47.3 fL (Abnormal) Range: 35.1-43.9 RDW CV 13.6 % (Normal) Range: 11.6-14.6 MCHC 33.3 {g/gl} (Normal) Range: 32-36 MCH 32.9 pg (Abnormal) Range: 27.0-32.0 MCV 98.8 fL (Normal) Range: 81-99 HCT 39.9 % (Normal) Range: 37-47 HGB 13.3 g/dL (Normal) Range: 12.0-15.0 RBC 4.04 {M/mm3} (Abnormal) Range: 4.2-5.4 WBC 4.7 K/mm3 (Normal) Range: 4.4-11.0 74-Ggt-19850:40 Comprehensive Metabolic Profil Comments: [facility] [address] [place], [place], [id number] GAP 13 (Normal) Range: 5-15 CO2 24.0 mmol/L (Normal) Range: 21.0-32.0 CL 102 mmol/L (Normal) Range: 98-107 K 3.6 mmol/L (Normal) Range: 3.5-5.1 NA 139 mmol/L (Normal) Range: 136-145 T BILI 0.40 mg/dL (Normal) Range: 0.20-1.00 ALT 42 U/L (Normal) Range: 12-78 ALK P 128 U/L (Normal) Range: 50-136 AST 24 U/L (Normal) Range: 15-37 CA 9.7 mg/dL (Normal) Range: 8.5-10.1 A/G 1.1 {RATIO} (Normal) Range: 0.9-2.4 GLOB 3.2 g/dL (Normal) Range: 2.3-3.5 ALB 3.5 g/dL (Normal) Range: 3.4-5.0 T PROT 6.7 g/dL (Normal) Range: 6.4-8.2 BUN/CRE 12.4 {RATIO} (Normal) Range: 10-20 EST GFR - AA 86 mL/min (Normal) Comments: GFR Calc EST GFR 71 mL/min (Normal) Comments: Non- GFR Calc CREAT,SERUM 0.89 mg/dL (Normal) Range: 0.55-1.20 Comments: The validity of the calculated GFR AND GFRAA in patients over70 years has not been determined. Clinical correlation isessential. BUN 11 mg/dL (Normal) Range: 7-18 GLU 198 mg/dL (Abnormal) Range: 70-110 Comments: Fasting Glucose result greater than or equal to 126 mg/dLsuggests DIABETES MELLITUS per A.D.A. criteria. :49 HgA1C , Office (47766) HgA1C , Office 7.8 % (Abnormal) Range: 4.6 - 7.1 :09 CBC W/Diff, Automated Comments: [facility] [address] [place], [address] Absolute Lymph 1.07 {X10_3/ul} (Normal) Range: 0.83-4.51 Absolute Neut 3.6 {X10_3/uL} (Normal) Range: 2.0-7.7 IM GRAN % 0.200 % (Normal) Range: 0.0-0.9 Comments: IG% - Immature Granulocytes (promyelocytes, myelocytes andmetamyelocytes) > 1% indicates that a LEFT SHIFT is Present. BASO% 0.2 % (Normal) Range: 0-1 EO% 1.1 % (Normal) Range: 0-5 MONO% 10.3 % (Abnormal) Range: 0-10 LY% 20.1 % (Normal) Range: 19-41 NEUT% 68.1 % (Normal) Range: 47-70 MPV 8.7 fL (Normal) Range: 6.2-12.0 PLT 267 K/mm3 (Normal) Range: 150-450 RDW SD 53.6 fL (Abnormal) Range: 35.1-43.9 RDW CV 15.0 % (Abnormal) Range: 11.6-14.6 MCHC 33.0 {g/gl} (Normal) Range: 32-36 MCH 32.7 pg (Abnormal) Range: 27.0-32.0 MCV 99.2 fL (Abnormal) Range: 81-99 HCT 37.3 % (Normal) Range: 37-47 HGB 12.3 g/dL (Normal) Range: 12.0-15.0 RBC 3.76 {M/mm3} (Abnormal) Range: 4.2-5.4 WBC 5.3 K/mm3 (Normal) Range: 4.4-11.0 81-Hyg-321389:09 Comprehensive Metabolic Profil Comments: [facility] [address] [place], [place], [id number] GAP 7 (Normal) Range: 5-15 CO2 28.0 mmol/L (Normal) Range: 21.0-32.0 CL 101 mmol/L (Normal) Range: 98-107 K 3.9 mmol/L (Normal) Range: 3.5-5.1 NA 136 mmol/L (Normal) Range: 136-145 T BILI 0.50 mg/dL (Normal) Range: 0.20-1.00 ALT 42 U/L (Normal) Range: 12-78 ALK P 134 U/L (Normal) Range: 50-136 AST 23 U/L (Normal) Range: 15-37 CA 9.4 mg/dL (Normal) Range: 8.5-10.1 A/G 1.2 {RATIO} (Normal) Range: 0.9-2.4 GLOB 2.9 g/dL (Normal) Range: 2.3-3.5 ALB 3.5 g/dL (Normal) Range: 3.4-5.0 T PROT 6.4 g/dL (Normal) Range: 6.4-8.2 BUN/CRE 19.3 {RATIO} (Normal) Range: 10-20 EST GFR - AA 93 mL/min (Normal) EST GFR 77 mL/min (Normal) CREAT,SERUM 0.83 mg/dL (Normal) Range: 0.55-1.20 Comments: The validity of the calculated GFR AND GFRAA in patients over70 years has not been determined. Clinical correlation isessential. BUN 16 mg/dL (Normal) Range: 7-18 GLU 200 mg/dL (Abnormal) Range: 70-110 Comments: Glucose result greater than or equal to 200 mg/dLsuggests DIABETES MELLITUS per A.D.A. criteria. 4-Psk-185878:42 CBC W/Diff, Automated Comments: At [facility] Outpatient [facility] Medical Oncologypatients receive CBC w/auto Differential ONLY. Physicianwill place an order for a manual differential or Pathologistreview at his discretion. [facility] OUTPATIENT [facility]. [address] [place] [address] [address] [employer]CREAGE MEASURER: MATEO CASTANEDA DO PH:[phone] performed at:[facility] [address] [place] [address] Absolute Lymph 1.60 {X10_3/ul} (Normal) Range: 0.83-4.51 Absolute Neut 4.8 {X10_3/uL} (Normal) Range: 2.0-7.7 IM GRAN % 0.300 % (Normal) Range: 0.0-0.9 Comments: IG% - Immature Granulocytes (promyelocytes, myelocytes andmetamyelocytes) > 1% indicates that a LEFT SHIFT is Present. BASO% 0.0 % (Normal) Range: 0-1 EO% 1.4 % (Normal) Range: 0-5 MONO% 6.9 % (Normal) Range: 0-10 LY% 22.9 % (Normal) Range: 19-41 NEUT% 68.5 % (Normal) Range: 47-70 MPV 8.8 fL (Normal) Range: 6.2-12.0 PLT 286 K/mm3 (Normal) Range: 150-450 RDW SD 49.2 fL (Abnormal) Range: 35.1-43.9 RDW CV 13.8 % (Normal) Range: 11.6-14.6 MCHC 33.3 {g/gl} (Normal) Range: 32-36 MCH 32.9 pg (Abnormal) Range: 27.0-32.0 MCV 98.7 fL (Normal) Range: 81-99 HCT 38.7 % (Normal) Range: 37-47 HGB 12.9 g/dL (Normal) Range: 12.0-15.0 RBC 3.92 {M/mm3} (Abnormal) Range: 4.2-5.4 WBC 7.0 K/mm3 (Normal) Range: 4.4-11.0 7-Wvt-266634:42 Comprehensive Metabolic Profil Comments: Serial Specimen #1, #2 or #3? 1Test performed at:[facility] [address] [place] [address] GAP 9 (Normal) Range: 5-15 CO2 25.0 mmol/L (Normal) Range: 21.0-32.0 CL 102 mmol/L (Normal) Range: 98-107 K 4.1 mmol/L (Normal) Range: 3.5-5.1 NA 136 mmol/L (Normal) Range: 136-145 T BILI 0.50 mg/dL (Normal) Range: 0.20-1.00 ALT 27 U/L (Normal) Range: 12-78 ALK P 144 U/L (Abnormal) Range: 50-136 AST 16 U/L (Normal) Range: 15-37 CA 8.6 mg/dL (Normal) Range: 8.5-10.1 A/G 1.4 {RATIO} (Normal) Range: 0.9-2.4 GLOB 2.6 g/dL (Normal) Range: 2.3-3.5 ALB 3.6 g/dL (Normal) Range: 3.4-5.0 T PROT 6.2 g/dL (Abnormal) Range: 6.4-8.2 BUN/CRE 24.1 {RATIO} (Abnormal) Range: 10-20 EST GFR - AA 93 mL/min (Normal) EST GFR 77 mL/min (Normal) CREAT,SERUM 0.83 mg/dL (Normal) Range: 0.55-1.20 Comments: Please note revised CREATININE reference range xtcgebcah45/22/2015. BUN 20 mg/dL (Abnormal) Range: 7-18 GLU 118 mg/dL (Abnormal) Range: 70-110 Comments: Fasting Glucose result from 110 to <126 mg/dLsuggests IMPAIRED HOMEOSTASIS per A.D.A. criteria. 3-Vpp-183561:42 LDH 133 U/L (Normal) Comments: Serial Specimen #1, #2 or #3? 1Test performed at:[facility] [address] [place] [address] Range: 84-246 3-Pfz-293445:42 Uric Acid Comments: Serial Specimen #1, #2 or #3? 1Test performed at:[facility] [address] [place] [address] URIC 4.6 mg/dL (Normal) Range: 2.6-6.0 8-Yrw-544287:02 CBC W/Diff, Automated Comments: Test performed at:[facility] [address] [place] [id number] ; handled by vicki Absolute Lymph 1.23 {X10_3/ul} (Normal) Range: 0.83-4.51 Absolute Neut 2.3 {X10_3/uL} (Normal) Range: 2.0-7.7 IM GRAN % 0.200 % (Normal) Range: 0.0-0.9 Comments: IG% - Immature Granulocytes (promyelocytes, myelocytes andmetamyelocytes) > 1% indicates that a LEFT SHIFT is Present. BASO% 0.5 % (Normal) Range: 0-1 EO% 2.4 % (Normal) Range: 0-5 MONO% 11.8 % (Abnormal) Range: 0-10 LY% 29.7 % (Normal) Range: 19-41 NEUT% 55.4 % (Normal) Range: 47-70 MPV 9.7 fL (Normal) Range: 6.2-12.0 PLT 215 K/mm3 (Normal) Range: 150-450 RDW SD 44.7 fL (Abnormal) Range: 35.1-43.9 RDW CV 12.7 % (Normal) Range: 11.6-14.6 MCHC 34.6 {g/gl} (Normal) Range: 32-36 MCH 34.5 pg (Abnormal) Range: 27.0-32.0 MCV 99.7 fL (Abnormal) Range: 81-99 HCT 37.0 % (Normal) Range: 37-47 HGB 12.8 g/dL (Normal) Range: 12.0-15.0 RBC 3.71 {M/mm3} (Abnormal) Range: 4.2-5.4 WBC 4.1 K/mm3 (Abnormal) Range: 4.4-11.0 1-Oij-949830:02 Comprehensive Metabolic Profil Comments: Test performed at:[facility] [address] [place], [place] [address] GAP 12 (Normal) Range: 5-15 CO2 23.0 mmol/L (Normal) Range: 21.0-32.0 CL 101 mmol/L (Normal) Range: 98-107 K 3.9 mmol/L (Normal) Range: 3.5-5.1 NA 136 mmol/L (Normal) Range: 136-145 T BILI 0.40 mg/dL (Normal) Range: 0.20-1.00 ALT 36 U/L (Normal) Range: 12-78 ALK P 157 U/L (Abnormal) Range: 50-136 AST 21 U/L (Normal) Range: 15-37 CA 9.2 mg/dL (Normal) Range: 8.5-10.1 A/G 1.2 {RATIO} (Normal) Range: 0.9-2.4 GLOB 3.0 g/dL (Normal) Range: 2.3-3.5 ALB 3.5 g/dL (Normal) Range: 3.4-5.0 T PROT 6.5 g/dL (Normal) Range: 6.4-8.2 BUN/CRE 13.8 {RATIO} (Normal) Range: 10-20 EST GFR - AA 97 mL/min (Normal) EST GFR 80 mL/min (Normal) CREAT,SERUM 0.80 mg/dL (Normal) Range: 0.55-1.20 Comments: Please note revised CREATININE reference range bufmlproa76/22/2015. BUN 11 mg/dL (Normal) Range: 7-18 GLU 214 mg/dL (Abnormal) Range: 70-110 Comments: Glucose result greater than or equal to 200 mg/dLsuggests DIABETES MELLITUS per A.D.A. criteria. 69-Csc-948396:49 VITAMIN B-12 (CYANOCOBALAMIN) Comments: PATIENT NOT FASTINGPERFORMED BY: [facility]4 [facility] [id number] ([id number]) Vitamin B12 464 pg/mL (Normal) Range: 211-946 09-Hnw-148536:49 Vitamin D Hydroxy (85534) Comments: PATIENT NOT FASTINGPERFORMED BY: [facility] HospitalIayyzw5130 [facility] [id number] Vitamin D, 25-Hydroxy 11.5 ng/mL (Abnormal) Range: 30.0-100.0 Comments: Vitamin D deficiency has been defined by the Tram ofMedicine and an Endocrine Society practice guideline as alevel of serum 25-OH vitamin D less than 20 ng/mL (1,2).The Endocrine Society went on to further define vitamin Dinsufficiency as a level between 21 and 29 ng/mL (2).1. IOM (Tram of Medicine). 2010. Dietary reference intakes for calcium and D. [place]: The National Academies Press.2. Sami MF, Sophie NC, Xiomara LARES, et al. Evaluation, treatment, and prevention of vitamin D deficiency: an Endocrine Society clinical practice guideline. JCEM. 2010; 96(7):1911-30. :49 CBC W/AUTO DIFF WBC Comments: PATIENT NOT FASTINGPERFORMED BY: [facility] Adpozt4412 [facility] [id number] Information: [id number] (40574) Immature Grans (Abs) 0.0 {x10E3/uL} (Normal) Range: 0.0-0.1 Immature Granulocytes 0 % (Normal) Baso (Absolute) 0.0 {x10E3/uL} (Normal) Range: 0.0-0.2 Eos (Absolute) 0.1 {x10E3/uL} (Normal) Range: 0.0-0.4 Monocytes(Absolute) 0.6 {x10E3/uL} (Normal) Range: 0.1-0.9 Lymphs (Absolute) 1.7 {x10E3/uL} (Normal) Range: 0.7-3.1 Neutrophils (Absolute) 3.7 {x10E3/uL} (Normal) Range: 1.4-7.0 Basos 0 % (Normal) Eos 2 % (Normal) Monocytes 10 % (Normal) Lymphs 27 % (Normal) Neutrophils 61 % (Normal) Platelets 371 {x10E3/uL} (Normal) Range: 150-379 RDW 14.3 % (Normal) Range: 12.3-15.4 MCHC 33.3 g/dL (Normal) Range: 31.5-35.7 MCH 32.7 pg (Normal) Range: 26.6-33.0 MCV 98 fL (Abnormal) Range: 79-97 Hematocrit 39.0 % (Normal) Range: 34.0-46.6 Hemoglobin 13.0 g/dL (Normal) Range: 11.1-15.9 RBC 3.98 {x10E6/uL} (Normal) Range: 3.77-5.28 WBC 6.1 {x10E3/uL} (Normal) Range: 3.4-10.8 16-Jbe-784802:28 URINE GENESIS CULTURE-NITA COL Comments: PATIENT NOT FASTINGPERFORMED BY: [facility] Ioitau4247 Mohinder [facility]Formerly [facility] [id number] Information: SRC:[facility] [id number] COUNT ([id number]) Antimicrobial MIHEAD (Normal) Comments: S = Susceptible; I = Intermediate; R = Resistant P = Positive; N = Negative MICS are expressed in micrograms per mL Antibiotic RSLT#1 RSLT#2 RS Susceptibility LT#3 RSLT#4Ciprofloxacin RGentamicin SLevofloxacin RLinezolid SMoxifloxacin RNitrofurantoin SOxacillin SPenicillin RQuinupristin/Dalfopristin SRifampin STetracycline STrimethoprim/Sulfa SVancomycin S Result 1 Staphylococcus aureus Comments: Greater than 100,000 colony forming units per mLBased on resistance to penicillin and susceptibility to oxacillinthis isolate would be susceptible to:* Penicillinase-stable penicillins; such as: Clox (Abnormal) acillin Dicloxacillin Nafcillin* Beta-lactam/beta-lactamase inhibitor combinations; such as: Amoxicillin-clavulanic acid Ampicillin- sulbactam* Antistaphylococcal cephems; such as: Cefaclo r Cefuroxime* Antistaphylococcal carbapenems; such as: Imipenem Meropenem Urine Final report (Abnormal) Culture,Comprehensive 59-Tog-673445:24 Urinalysis, Office ([id number]) UA - LEUKOCYTE ESTERASE Trace (Normal) UA - NITRITE Negative (Normal) URINE UROBILINGN NITA TIMED Normal mg/dL (Normal) UA - PROTEIN 30 mg/dL (Normal) UA - PH 6 (Abnormal) UA - BLOOD Negative (Normal) UA - SPECIFIC GRAVITY 1.030 (Abnormal) UA - KETONES Moderate mg/dL (Normal) UA - BILIRUBIN Small (Normal) UA - GLUCOSE Negative (Normal) 01-Apr-20157:54 Bedside Glucose Comments: Test performed at:[facility] [address] [place] [address] BEDSIDE GLU 129 mg/dL (Abnormal) Range: 70-110 Comments: MANAGEMENT OF PATIENT CARE PER NURSING PROTOCOL 31-Mar-20159:47 Urinalysis, Office ([id number]) UA - LEUKOCYTE ESTERASE Trace (Normal) UA - NITRITE Negative (Normal) URINE UROBILINGN NITA TIMED 2 mg/dL (Normal) UA - PROTEIN 300 mg/dL (Normal) UA - PH 6.0 (Normal) UA - BLOOD Hemolyzed Large (Normal) UA - SPECIFIC GRAVITY 1.030 (Abnormal) UA - KETONES 15 mg/dL (Abnormal) UA - BILIRUBIN Moderate (Normal) UA - GLUCOSE Negative (Normal) 14-Jyr-[id number]:57 Basic Metabolic Profile (BMP) Comments: Test performed at:[facility] [id number] [place] [id number] GAP 11 (Normal) Range: 5-15 CO2 27.0 mmol/L (Normal) Range: 21.0-32.0 CL 98 mmol/L (Normal) Range: 98-107 K 3.5 mmol/L (Normal) Range: 3.5-5.1 NA 136 mmol/L (Normal) Range: 136-145 CA 9.2 mg/dL (Normal) Range: 8.5-10.1 BUN/CRE 8.0 {RATIO} (Abnormal) Range: 10-20 Estimated CRCL 59.89 ml/min (Normal) EST GFR - AA 75 mL/min (Normal) EST GFR 62 mL/min (Normal) CREAT,SERUM 1.0 mg/dL (Normal) Range: 0.6-1.0 BUN 8 mg/dL (Normal) Range: 7-18 GLU 145 mg/dL (Abnormal) Range: 70-110 Comments: Fasting Glucose result greater than or equal to 126 mg/dLsuggests DIABETES MELLITUS per A.D.A. criteria. 52-Bda-[id number]:57 Digoxin Level Comments: Test performed at:[facility] [address] [place] [address] DIG 1.17 ng/mL (Normal) Range: 0.80-2.00 15-Xsg-795723:57 Hemoglobin A1c Comments: Test performed at:[facility] [id number] [place] [address] HGB A1C 7.0 % (Abnormal) Range: 4.2-6.3 44-Maa-[id number]:57 Thyroid Stim Hormone (TSH) Comments: Test performed at:[facility] [id number] [place] [address], [place] [address] TSH 0.89 {uIU/mL} (Normal) Range: 0.358-3.74 :17 Urine Culture,Comprehensive Comments: PATIENT NOT FASTINGPERFORMED BY: REINALDO [facility] [id number] [place] [id number] Information: SRC:[facility] [id number] Result 1 BETAGB (Abnormal) Comments: Beta hemolytic Streptococcus, group B1,000 Colonies/mLPenicillin and ampicillin are drugs of choice for treatment ofbeta- hemolytic streptococcal infections. Susceptibility testing ofpenicillins and othe r beta-lactam agents approved by the FDA fortreatment of beta-hemolytic streptococcal infections need not beperformed routinely because nonsusceptible isolates are extremelyrare in any beta-hemolytic st reptococcus and have not been reportedfor Streptococcus pyogenes (group A). (CLSI 2010) Urine Final report (Abnormal) Culture,Comprehensive 28-Feb-20154:10 Urinalysis, Complete Comments: Order Date: 02/28/15How was Urine Obtained? CLEAN CATCHTest performed at:[facility] [address] [facility] [place] [address] AMORPHOUS 1+ URATE (Normal) MUCUS, URINE 1+ {/hpf} (Normal) BACTERIA RARE {/hpf} (Normal) SQUAM EPI 5-10 SEEN {/hpf} (Normal) Range: 5-10 RBC-UA 5-10 SEEN {/hpf} (Normal) Range: 0-5 WBC 10-25 SEEN {/hpf} (Normal) Range: 0-5 LEUK ESTERASE 500 /ul (Abnormal) OCCULT BLOOD-UR 50 /ul (Abnormal) NITRITE UR Negative (Normal) UROBILI 1 mg/dL (Abnormal) PROT DIPSTX 30 mg/dL (Abnormal) pH UR 5.0 (Normal) Range: 5.0 - 8.0 SP.GR. DIPSTX 1.030 (Normal) Range: 1.002-1.030 KETONE UR 15 mg/dL (Abnormal) BILIRUBIN URINE 1 mg/dL (Abnormal) Comments: COLOR OF URINE MAY AFFECT DIPSTICK RESULTS. GLUCOSE, UR Normal mg/dL (Normal) CLARITY Sl. Cloudy (Normal) COLOR Yellow (Normal) :55 CBC W/Diff, Automated Comments: Test performed at:[facility] [address] [facility] [place] [address] Absolute Lymph 1.29 {X10_3/ul} (Normal) Range: 0.83-4.51 Absolute Neut 4.7 {X10_3/uL} (Normal) Range: 2.0-7.7 IM GRAN % 0.000 % (Normal) Range: 0.0-0.9 Comments: IG% - Immature Granulocytes (promyelocytes, myelocytes andmetamyelocytes) > 1% indicates that a LEFT SHIFT is Present. BASO% 0.3 % (Normal) Range: 0-1 EO% 1.7 % (Normal) Range: 0-5 MONO% 7.5 % (Normal) Range: 0-10 LY% 19.7 % (Normal) Range: 19-41 NEUT% 70.8 % (Abnormal) Range: 47-70 MPV 9.0 fL (Normal) Range: 6.2-12.0 PLT 246 K/mm3 (Normal) Range: 150-450 RDW SD 48.4 fL (Abnormal) Range: 35.1-43.9 RDW CV 13.7 % (Normal) Range: 11.6-14.6 MCHC 34.0 {g/gl} (Normal) Range: 32-36 MCH 33.3 pg (Abnormal) Range: 27.0-32.0 MCV 97.8 fL (Normal) Range: 81-99 HCT 39.7 % (Normal) Range: 37-47 HGB 13.5 g/dL (Normal) Range: 12.0-15.0 RBC 4.06 {M/mm3} (Abnormal) Range: 4.2-5.4 WBC 6.6 K/mm3 (Normal) Range: 4.4-11.0 :55 Comprehensive Metabolic Profil Comments: Test performed at:[facility] [address] [place] [address] GAP 10 (Normal) Range: 5-15 CO2 26.0 mmol/L (Normal) Range: 21.0-32.0 CL 99 mmol/L (Normal) Range: 98-107 K 3.9 mmol/L (Normal) Range: 3.5-5.1 NA 135 mmol/L (Abnormal) Range: 136-145 T BILI 0.40 mg/dL (Normal) Range: 0.20-1.00 ALT 40 U/L (Normal) Range: 12-78 ALK P 128 U/L (Normal) Range: 50-136 AST 37 U/L (Normal) Range: 15-37 CA 9.0 mg/dL (Normal) Range: 8.5-10.1 A/G 1.1 {RATIO} (Normal) Range: 0.9-2.4 GLOB 3.2 g/dL (Normal) Range: 2.7-4.2 ALB 3.5 g/dL (Normal) Range: 3.4-5.0 T PROT 6.7 g/dL (Normal) Range: 6.4-8.2 BUN/CRE 9.1 {RATIO} (Abnormal) Range: 10-20 Estimated CRCL 55.06 ml/min (Normal) EST GFR - AA 68 mL/min (Normal) EST GFR 56 mL/min (Abnormal) CREAT,SERUM 1.1 mg/dL (Abnormal) Range: 0.6-1.0 BUN 10 mg/dL (Normal) Range: 7-18 GLU 179 mg/dL (Abnormal) Range: 70-110 Comments: Fasting Glucose result greater than or equal to 126 mg/dLsuggests DIABETES MELLITUS per A.D.A. criteria. :55 Lipase Comments: Test performed at:[facility] [address] [place] [address] LIPASE 142 U/L (Normal) Range: 70-290 3-Rus-371909:40 HgA1C , Office (67502) HgA1C , Office 7.4 % (Abnormal) Range: 4.6 - 7.1 :03 CBC W/Diff, Automated Comments: Test performed at:[facility] [address] [place] [address] Absolute Lymph 1.31 {X10_3/ul} (Normal) Range: 0.83-4.51 Absolute Neut 2.9 {X10_3/uL} (Normal) Range: 2.0-7.7 IM GRAN % 0.200 % (Normal) Range: 0.0-0.9 Comments: IG% - Immature Granulocytes (promyelocytes, myelocytes andmetamyelocytes) > 1% indicates that a LEFT SHIFT is Present. BASO% 0.8 % (Normal) Range: 0-1 EO% 2.4 % (Normal) Range: 0-5 MONO% 13.6 % (Abnormal) Range: 0-10 LY% 25.7 % (Normal) Range: 19-41 NEUT% 57.3 % (Normal) Range: 47-70 MPV 9.4 fL (Normal) Range: 6.2-12.0 PLT 297 K/mm3 (Normal) Range: 150-450 RDW SD 49.3 fL (Abnormal) Range: 35.1-43.9 RDW CV 14.0 % (Normal) Range: 11.6-14.6 MCHC 33.4 {g/gl} (Normal) Range: 32-36 MCH 33.3 pg (Abnormal) Range: 27.0-32.0 MCV 99.8 fL (Abnormal) Range: 81-99 HCT 40.4 % (Normal) Range: 37-47 HGB 13.5 g/dL (Normal) Range: 12.0-15.0 RBC 4.05 {M/mm3} (Abnormal) Range: 4.2-5.4 WBC 5.1 K/mm3 (Normal) Range: 4.4-11.0 02-Olz-114815:03 Comprehensive Metabolic Profil Comments: Test performed at:[facility] [address] [place], [place] [id number] GAP 11 (Normal) Range: 5-15 CO2 26.0 mmol/L (Normal) Range: 21.0-32.0 CL 98 mmol/L (Normal) Range: 98-107 K 3.7 mmol/L (Normal) Range: 3.5-5.1 NA 135 mmol/L (Abnormal) Range: 136-145 T BILI 0.60 mg/dL (Normal) Range: 0.00-4.00 ALT 40 U/L (Normal) Range: 12-78 ALK P 124 U/L (Normal) Range: 50-136 AST 25 U/L (Normal) Range: 15-37 CA 9.2 mg/dL (Normal) Range: 8.5-10.1 A/G 1.4 {RATIO} (Normal) Range: 0.9-2.4 GLOB 2.8 g/dL (Normal) Range: 2.7-4.2 ALB 3.8 g/dL (Normal) Range: 3.4-5.0 T PROT 6.6 g/dL (Normal) Range: 6.4-8.2 BUN/CRE 9.0 {RATIO} (Abnormal) Range: 10-20 EST GFR - AA 75 mL/min (Normal) EST GFR 62 mL/min (Normal) CREAT,SERUM 1.0 mg/dL (Normal) Range: 0.6-1.0 BUN 9 mg/dL (Normal) Range: 7-18 GLU 198 mg/dL (Abnormal) Range: 70-110 Comments: Fasting Glucose result greater than or equal to 126 mg/dLsuggests DIABETES MELLITUS per A.D.A. criteria. 60-Xwv-[id number]:00 Culture, Urine Comments: Test performed at:[facility] [address] [place], [place] [id number] CUUR See Note (Normal) Comments: Urine CultureORGANISM 1: Streptococcus agalactiae (B)Aurora Count 1000-10,000 Streptococcus agalactiae (B): REACTION Ampicillin $ <=0.25 S Benzylpenicillin NF <=0.06 S Ceftriaxone (other dx) $ <=0.12 S Inducable Clindamycin Resistan - Linezolid $$$$ <=2 S Vancomycin $ 0.5 S(NF) indicates non-formulary drug at [facility]. Approval by Infectious Disease Specialist required before non-formulary drugs may be ordered and/or dispensed. * CLSI guidelines does not recommend testing of cephalosporins. This interpretation is deduced from Beta-lactam/penicillin results.; ADDENDA: handled by edvin :32 CBC W/Diff, Auto - EPLAB Only Comments: At [facility] Outpatient [facility], [facility] patientsreceive CBC w/auto Differential ONLY. Physician will placean order for a manual differential or Pathologist review athis discretion. [facility] OUT[facility]IENT [facility]. [address] [place] [address] [address] [employer] ACREAGE MEASURER: MATEO CASTANEDA DO PH:[phone] performed at:[facility] [address] [place], [place] [id number] ; Richie Absolute Neut 2.7 {X10_3/uL} (Normal) Range: 2.0-7.7 BASO% 1.1 % (Abnormal) Range: 0-1 EO% 2.3 % (Normal) Range: 0-5 MONO% 9.2 % (Normal) Range: 0-10 LY% 39.3 % (Normal) Range: 19-41 NEUT% 48.1 % (Normal) Range: 47-70 MPV 6.1 fL (Abnormal) Range: 6.2-12.0 PLT 287 K/mm3 (Normal) Range: 150-450 RDW 12.6 % (Normal) Range: 11.6-14.6 MCHC 35.3 g/dL (Normal) Range: 32-36 MCH 34.4 pg (Abnormal) Range: 27.0-32.0 MCV 97.3 fL (Normal) Range: 81-99 HCT 39.3 % (Normal) Range: 37-47 HGB 13.9 g/dL (Normal) Range: 12.0-15.0 RBC 4.04 {M/mm3} (Abnormal) Range: 4.2-5.4 WBC 5.7 K/mm3 (Normal) Range: 4.4-11.0 :32 LDH 189 U/L (Normal) Comments: Serial Specimen #1, #2 or #3? 1Test performed at:[facility] [address] [place], [place] [id number] Range: 87-241 Comments: ADDENDA: richie :34 TSH (74508) Comments: PATIENT WAS FASTINGPERFORMED BY: [facility] [address]ufk66[address] [facility] [id number] TSH 1.240 {uIU/mL} (Normal) Range: 0.450-4.500 :34 LIPID PANEL (57257) Comments: PATIENT WAS FASTINGPERFORMED BY: [facility] Jbeawj7622 [facility] [id number] LDL/HDL Ratio 2.6 {ratio_units} (Normal) Range: 0.0-3.2 Comments: LDL/HDL Ratio Men Women 1/2 Avg.Risk 1.0 1.5 Av g.Risk 3.6 3.2 2X Avg.Risk 6.2 5.0 3X Avg.Risk 8.0 6.1 LDL Cholesterol Calc 71 mg/dL (Normal) Range: 0-99 VLDL Cholesterol Ramandeep 37 mg/dL (Normal) Range: 5-40 HDL Cholesterol 27 mg/dL (Abnormal) Comments: According to ATP-III Guidelines, HDL-C >59 mg/dL is considered anegative risk factor for CHD. Triglycerides 186 mg/dL (Abnormal) Range: 0-149 Cholesterol, Total 135 mg/dL (Normal) Range: 100-199 :34 MICROALBUMIN: CREATININE RATIO Comments: PATIENT WAS FASTINGPERFORMED BY: [facility] [id number]; non- emergent till apt tomorrow (42282) AND (09108) Microalb/Creat Ratio 14.8 {mg/g_creat} (Normal) Range: 0.0-30.0 Microalbumin, Urine 44.5 ug/mL (Abnormal) Range: 0.0-17.0 Creatinine, Urine 301.0 mg/dL (Abnormal) Range: 15.0-278.0 :34 METABOLIC PANEL, Comments: PATIENT WAS FASTINGPERFORMED BY: [facility]zi[facility]8205 [facility] [id number] Information: [id number] COMPREHENSIVE (17362) ALT (SGPT) 21 [iU]/L (Normal) Range: 0-32 AST (SGOT) 17 [iU]/L (Normal) Range: 0-40 Alkaline Phosphatase, S 89 [iU]/L (Normal) Range: 39-117 Bilirubin, Total 0.7 mg/dL (Normal) Range: 0.0-1.2 A/G Ratio 2.9 (Abnormal) Range: 1.1-2.5 Globulin, Total 1.5 g/dL (Normal) Range: 1.5-4.5 Albumin, Serum 4.3 g/dL (Normal) Range: 3.5-5.5 Protein, Total, Serum 5.8 g/dL (Abnormal) Range: 6.0-8.5 Calcium, Serum 9.4 mg/dL (Normal) Range: 8.7-10.2 Carbon Dioxide, Total 25 mmol/L (Normal) Range: 18-29 Chloride, Serum 94 mmol/L (Abnormal) Range: 97-108 Potassium, Serum 4.0 mmol/L (Normal) Range: 3.5-5.2 Sodium, Serum 137 mmol/L (Normal) Range: 134-144 BUN/Creatinine Ratio 12 (Normal) Range: 9-23 eGFR If Africn Am 84 mL/min/1.73 (Normal) eGFR If NonAfricn Am 73 mL/min/1.73 (Normal) Creatinine, Serum 0.92 mg/dL (Normal) Range: 0.57-1.00 BUN 11 mg/dL (Normal) Range: 6-24 Glucose, Serum 161 mg/dL (Abnormal) Range: 65-99 4-Mgz-253597:10 HgA1C , Office (87661) HgA1C , Office 7.2 % (Abnormal) Range: 4.6 - 7.1 11-Ddi-593185:47 CBC W/Diff, Automated Comments: Test performed at:[facility] [address] [place], [place] [id number] ; Handled by Vicki Absolute Lymph 1.43 {X10_3/ul} (Normal) Range: 0.83-4.51 Absolute Neut 3.4 {X10_3/uL} (Normal) Range: 2.0-7.7 IM GRAN % 0.000 % (Normal) Range: 0.0-0.9 Comments: IG% - Immature Granulocytes (promyelocytes, myelocytes andmetamyelocytes) > 1% indicates that a LEFT SHIFT is Present. BASO% 0.6 % (Normal) Range: 0-1 EO% 2.4 % (Normal) Range: 0-5 MONO% 8.5 % (Normal) Range: 0-10 LY% 26.3 % (Normal) Range: 19-41 NEUT% 62.2 % (Normal) Range: 47-70 MPV 9.2 fL (Normal) Range: 6.2-12.0 PLT 285 K/mm3 (Normal) Range: 150-450 RDW SD 50.6 fL (Abnormal) Range: 35.1-43.9 RDW CV 13.9 % (Normal) Range: 11.6-14.6 MCHC 33.4 {g/gl} (Normal) Range: 32-36 MCH 33.6 pg (Abnormal) Range: 27.0-32.0 MCV 100.5 fL (Abnormal) Range: 81-99 HCT 38.3 % (Normal) Range: 37-47 HGB 12.8 g/dL (Normal) Range: 12.0-15.0 RBC 3.81 {M/mm3} (Abnormal) Range: 4.2-5.4 WBC 5.4 K/mm3 (Normal) Range: 4.4-11.0 51-Hwf-910327:47 Comprehensive Metabolic Profil Comments: Test performed at:[facility] [address] [place], [place] [address] GAP 6 (Normal) Range: 5-15 CO2 30.0 mmol/L (Normal) Range: 21.0-32.0 CL 101 mmol/L (Normal) Range: 98-107 K 4.1 mmol/L (Normal) Range: 3.5-5.1 NA 137 mmol/L (Normal) Range: 136-145 T BILI 0.40 mg/dL (Normal) Range: 0.00-4.00 ALT 23 U/L (Normal) Range: 12-78 ALK P 127 U/L (Normal) Range: 50-136 AST 18 U/L (Normal) Range: 15-37 CA 8.5 mg/dL (Normal) Range: 8.5-10.1 A/G 1.2 {RATIO} (Normal) Range: 0.9-2.4 GLOB 3.0 g/dL (Normal) Range: 2.7-4.2 ALB 3.5 g/dL (Normal) Range: 3.4-5.0 T PROT 6.5 g/dL (Normal) Range: 6.4-8.2 BUN/CRE 17.8 {RATIO} (Normal) Range: 10-20 EST GFR - AA 85 mL/min (Normal) EST GFR 70 mL/min (Normal) CREAT,SERUM 0.9 mg/dL (Normal) Range: 0.6-1.0 BUN 16 mg/dL (Normal) Range: 7-18 GLU 141 mg/dL (Abnormal) Range: 70-110 Comments: Fasting Glucose result greater than or equal to 126 mg/dLsuggests DIABETES MELLITUS per A.D.A. criteria. :01 Microscopic Examination Comments: PATIENT NOT FASTINGPERFORMED BY: [facility] [id number] Bacteria Few (Normal) Mucus Threads Present (Normal) Epithelial Cells (non renal) 0-10 {/hpf} (Normal) Range: 0 - 10 RBC 0-2 {/hpf} (Normal) Range: 0 - 2 WBC >30 {/hpf} (Abnormal) Range: 0 - 5 :01 Urinalysis, Routine Comments: PATIENT NOT FASTINGPERFORMED BY: [facility] [id number] Microscopic Examination See below: (Normal) Comments: Microscopic was indicated and was performed. Nitrite, Urine Negative (Normal) Urobilinogen,Semi-Qn 0.2 mg/dL (Normal) Range: 0.0-1.9 Bilirubin Negative (Normal) Occult Blood Negative (Normal) Ketones Trace (Abnormal) Glucose Negative (Normal) Protein 1+ (Abnormal) WBC Esterase 3+ (Abnormal) Appearance Turbid (Abnormal) Urine-Color Yellow (Normal) pH 6.0 (Normal) Range: 5.0-7.5 Specific [place] 1.030 (Normal) Range: 1.005-1.030 76-Qjr-072922:18 CBCD ALC 1.30 {X10_3/ul} (Normal) Range: 0.83-4.51 ANC 2.6 {X10_3/uL} (Normal) Range: 2.0-7.7 IG% 0.000 % (Normal) Range: 0.0-0.9 Comments: IG% - Immature Granulocytes (promyelocytes, myelocytes andmetamyelocytes) > 1% indicates that a LEFT SHIFT is Present. B% 0.9 % (Normal) Range: 0-1 E% 2.9 % (Normal) Range: 0-5 M% 10.6 % (Abnormal) Range: 0-10 L% 28.8 % (Normal) Range: 19-41 N% 56.8 % (Normal) Range: 47-70 MPV 9.5 fL (Normal) Range: 6.2-12.0 PLT 255 K/mm3 (Normal) Range: 150-450 RDWSD 45.1 fL (Abnormal) Range: 35.1-43.9 RDWCV 13.6 % (Normal) Range: 11.6-14.6 MCHC 33.8 {g/gl} (Normal) Range: 32-36 MCH 32.5 pg (Abnormal) Range: 27.0-32.0 MCV 96.3 fL (Normal) Range: 81-99 HCT 38.8 % (Normal) Range: 37-47 HGB 13.1 g/dL (Normal) Range: 12.0-15.0 RBC 4.03 {M/mm3} (Abnormal) Range: 4.2-5.4 WBC 4.5 K/mm3 (Normal) Range: 4.4-11.0 26-Wpa-343079:18 CMP GAP 7 (Normal) Range: 5-15 CO2 29.0 mmol/L (Normal) Range: 21.0-32.0 CL 101 mmol/L (Normal) Range: 98-107 K 3.5 mmol/L (Normal) Range: 3.5-5.1 NA 137 mmol/L (Normal) Range: 136-145 BIT 0.50 mg/dL (Normal) Range: 0.00-4.00 ALT 23 U/L (Normal) Range: 12-78 ALK 147 U/L (Abnormal) Range: 50-136 AST 16 U/L (Normal) Range: 15-37 CA 9.1 mg/dL (Normal) Range: 8.5-10.1 AG 1.2 {RATIO} (Normal) Range: 0.9-2.4 GLOB 3.1 g/dL (Normal) Range: 2.7-4.2 ALB 3.8 g/dL (Normal) Range: 3.4-5.0 TPROT 6.9 g/dL (Normal) Range: 6.4-8.2 BC 16.0 {RATIO} (Normal) Range: 10-20 GFRAA 75 mL/min (Normal) GFR 62 mL/min (Normal) CREAT 1.0 mg/dL (Normal) Range: 0.6-1.0 BUN 16 mg/dL (Normal) Range: 7-18 GLU 133 mg/dL (Abnormal) Range: 70-110 Comments: Fasting Glucose result greater than or equal to 126 mg/dLsuggests DIABETES MELLITUS per A.D.A. criteria. :01 [id number] (38675) Comments: PATIENT NOT FASTINGPERFORMED BY: [facility] [id number] AFP, Serum, Tumor Marker 7.1 ng/mL (Normal) Range: 0.0-8.3 Comments: Khanh ECLIA methodology :01 PTT (Activated Partial Comments: PATIENT NOT FASTINGPERFORMED BY: [place] 1611370 [facility] [id number] Thromboplastin Time) (13524) aPTT 25 {sec} (Normal) Range: 24-33 Comments: This test has not been validated for monitoring unfractionated heparintherapy. aPTT-based therapeutic ranges for unfractionated heparintherapy have not been established. For general guidelines onHeparin monitoring, refer to the [employer] Directory of Services. :01 PT (Prothrobim Time) (82945) Comments: PATIENT NOT FASTINGPERFORMED BY: [facility] [id number] Prothrombin Time 10.4 {sec} (Normal) Range: 9.1-12.0 INR 1.0 (Normal) Range: 0.8-1.2 Comments: Reference interval is for non-anticoagulated patients. . Suggested INR therapeutic range for Vitamin K anta gonist therapy: Standard Dose (moderate intensity therapeutic range): 2.0 - 3.0 Higher intensity therapeutic range 2.5 - 3.5 :01 TSH (08311) Comments: PATIENT NOT FASTINGPERFORMED BY: [place] 1611370 [facility] [id number] TSH 1.450 {uIU/mL} (Normal) Range: 0.450-4.500 :01 CBC W/AUTO DIFF WBC Comments: PATIENT NOT FASTINGPERFORMED BY: [place] 1611370 [facility] [id number] Information: [id number], [id number] (55824) Immature Grans (Abs) 0.0 {x10E3/uL} (Normal) Range: 0.0-0.1 Immature Granulocytes 0 % (Normal) Baso (Absolute) 0.0 {x10E3/uL} (Normal) Range: 0.0-0.2 Eos (Absolute) 0.2 {x10E3/uL} (Normal) Range: 0.0-0.4 Monocytes(Absolute) 0.5 {x10E3/uL} (Normal) Range: 0.1-0.9 Lymphs (Absolute) 1.9 {x10E3/uL} (Normal) Range: 0.7-3.1 Neutrophils (Absolute) 3.1 {x10E3/uL} (Normal) Range: 1.4-7.0 Basos 1 % (Normal) Eos 3 % (Normal) Monocytes 9 % (Normal) Lymphs 33 % (Normal) Neutrophils 54 % (Normal) Platelets 313 {x10E3/uL} (Normal) Range: 150-379 RDW 15.1 % (Normal) Range: 12.3-15.4 MCHC 34.6 g/dL (Normal) Range: 31.5-35.7 MCH 33.5 pg (Abnormal) Range: 26.6-33.0 MCV 97 fL (Normal) Range: 79-97 Hematocrit 37.0 % (Normal) Range: 34.0-46.6 Hemoglobin 12.8 g/dL (Normal) Range: 11.1-15.9 RBC 3.82 {x10E6/uL} (Normal) Range: 3.77-5.28 WBC 5.7 {x10E3/uL} (Normal) Range: 3.4-10.8 :01 MICROALBUMIN: CREATININE RATIO Comments: PATIENT NOT FASTINGPERFORMED BY: [facility]762 [facility] [id number] ([id number]) AND (43250) Microalb/Creat Ratio 26.4 {mg/g_creat} (Normal) Range: 0.0-30.0 Microalbumin, Urine 96.0 ug/mL (Abnormal) Range: 0.0-17.0 Creatinine, Urine 364.2 mg/dL (Abnormal) Range: 15.0-278.0 5-Luis Angel-44570:01 METABOLIC PANEL, COMPREHENSIVE Comments: PATIENT NOT FASTINGPERFORMED BY: REINALDO [facility] Yqqpew2446 [facility] [id number] (66689) ALT (SGPT) 19 [iU]/L (Normal) Range: 0-32 AST (SGOT) 16 [iU]/L (Normal) Range: 0-40 Alkaline Phosphatase, S 119 [iU]/L (Abnormal) Range: 39-117 Bilirubin, Total 0.4 mg/dL (Normal) Range: 0.0-1.2 A/G Ratio 2.3 (Normal) Range: 1.1-2.5 Globulin, Total 1.9 g/dL (Normal) Range: 1.5-4.5 Albumin, Serum 4.3 g/dL (Normal) Range: 3.5-5.5 Protein, Total, Serum 6.2 g/dL (Normal) Range: 6.0-8.5 Calcium, Serum 9.4 mg/dL (Normal) Range: 8.7-10.2 Comments: Effective October 14, 2014 the reference interval for Calcium, Serum will be changing to: Age Male Female 0 - 10 days 8.6 - 10.4 8.6 - 10.4 11 days - 1 year 9.2 - 11.0 9.2 - 11.0 2 - 11 years 9.1 - 10.5 9.1 - 10.5 12 - 17 years 8.9 - 10.4 8.9 - 10.4 18 - 59 years 8.7 - 10.2 8.7 - 10.2 >59 years 8.6 - 10.2 8.7 - 10.3 Carbon Dioxide, Total 22 mmol/L (Normal) Range: 18-29 Chloride, Serum 97 mmol/L (Normal) Range: 97-108 Potassium, Serum 4.6 mmol/L (Normal) Range: 3.5-5.2 Sodium, Serum 139 mmol/L (Normal) Range: 134-144 BUN/Creatinine Ratio 11 (Normal) Range: 9-23 eGFR If Africn Am 84 mL/min/1.73 (Normal) eGFR If NonAfricn Am 73 mL/min/1.73 (Normal) Creatinine, Serum 0.92 mg/dL (Normal) Range: 0.57-1.00 BUN 10 mg/dL (Normal) Range: 6-24 Glucose, Serum 118 mg/dL (Abnormal) Range: 65-99 :01 LIPID PANEL (14277) Comments: PATIENT NOT FASTINGPERFORMED BY: [facility] Dqizhn6604 [facility] [id number] LDL/HDL Ratio 2.1 {ratio_units} (Normal) Range: 0.0-3.2 Comments: LDL/HDL Ratio Men Women 1/2 Avg.Risk 1.0 1.5 Av g.Risk 3.6 3.2 2X Avg.Risk 6.2 5.0 3X Avg.Risk 8.0 6.1 LDL Cholesterol Calc 87 mg/dL (Normal) Range: 0-99 VLDL Cholesterol Ramandeep 15 mg/dL (Normal) Range: 5-40 HDL Cholesterol 42 mg/dL (Normal) Comments: According to ATP-III Guidelines, HDL-C >59 mg/dL is considered anegative risk factor for CHD. Triglycerides 76 mg/dL (Normal) Range: 0-149 Cholesterol, Total 144 mg/dL (Normal) Range: 100-199 :19 HgA1C , Office (93078) HgA1C , Office 6.3 % (Normal) Range: 4.6 - 7.1 :11 LDH 205 U/L (Normal) Comments: Serial Specimen #1, #2 or #3? 1 Range: 87-241 :10 ECBCD ANC 3.4 {X10_3/uL} (Normal) Range: 2.0-7.7 B% 1.1 % (Abnormal) Range: 0-1 E% 3.0 % (Normal) Range: 0-5 M% 7.8 % (Normal) Range: 0-10 L% 23.5 % (Normal) Range: 19-41 N% 64.6 % (Normal) Range: 47-70 MPV 5.8 fL (Abnormal) Range: 6.2-12.0 PLT 266 K/mm3 (Normal) Range: 150-450 RDW 11.5 % (Abnormal) Range: 11.6-14.6 MCHC 35.0 g/dL (Normal) Range: 32-36 MCH 32.0 pg (Normal) Range: 27.0-32.0 MCV 91.5 fL (Normal) Range: 81-99 HCT 37.7 % (Normal) Range: 37-47 HGB 13.2 g/dL (Normal) Range: 12.0-15.0 RBC 4.12 {M/mm3} (Abnormal) Range: 4.2-5.4 WBC 5.3 K/mm3 (Normal) Range: 4.4-11.0 :07 CBCD ALC 1.71 {X10_3/ul} (Normal) Range: 0.83-4.51 ANC 4.2 {X10_3/uL} (Normal) Range: 2.0-7.7 IG% 0.000 % (Normal) Range: 0.0-0.9 Comments: IG% - Immature Granulocytes (promyelocytes, myelocytes andmetamyelocytes) > 1% indicates that a LEFT SHIFT is Present. B% 0.9 % (Normal) Range: 0-1 E% 3.3 % (Normal) Range: 0-5 M% 11.7 % (Abnormal) Range: 0-10 L% 24.4 % (Normal) Range: 19-41 N% 59.7 % (Normal) Range: 47-70 MPV 9.2 fL (Normal) Range: 6.2-12.0 PLT 236 K/mm3 (Normal) Range: 150-450 RDWSD 44.0 fL (Abnormal) Range: 35.1-43.9 MCHC 33.3 {g/gl} (Normal) Range: 32-36 RDWCV 12.7 % (Normal) Range: 11.6-14.6 MCH 31.9 pg (Normal) Range: 27.0-32.0 MCV 96.0 fL (Normal) Range: 81-99 HCT 40.9 % (Normal) Range: 37-47 HGB 13.6 g/dL (Normal) Range: 12.0-15.0 RBC 4.26 {M/mm3} (Normal) Range: 4.2-5.4 WBC 7.0 K/mm3 (Normal) Range: 4.4-11.0 :07 CMP GAP 7 (Normal) Range: 5-15 CO2 27.0 mmol/L (Normal) Range: 21.0-32.0 CL 102 mmol/L (Normal) Range: 98-107 K 4.2 mmol/L (Normal) Range: 3.5-5.1 NA 136 mmol/L (Normal) Range: 136-145 BIT 0.40 mg/dL (Normal) Range: 0.00-1.00 ALT 25 U/L (Normal) Range: 12-78 ALK 115 U/L (Normal) Range: 45-117 AST 17 U/L (Normal) Range: 15-37 CA 9.7 mg/dL (Normal) Range: 8.5-10.1 AG 1.3 {RATIO} (Normal) Range: 0.9-2.4 GLOB 3.1 g/dL (Normal) Range: 2.7-4.2 ALB 3.9 g/dL (Normal) Range: 3.4-5.0 TPROT 7.0 g/dL (Normal) Range: 6.4-8.2 BC 14.0 {RATIO} (Normal) Range: 10-20 GFRAA 75 mL/min (Normal) GFR 62 mL/min (Normal) CREAT 1.0 mg/dL (Normal) Range: 0.6-1.0 BUN 14 mg/dL (Normal) Range: 7-18 GLU 102 mg/dL (Normal) Range: 70-110 [id number] Anaerobic & Aerobic Comments: PATIENT NOT FASTINGPERFORMED BY: [facility] [id number] Information: SRC:WND [id number] RIGHT EYE Culture ([id number]) Antimicrobial MIHEAD (Normal) Comments: S = Susceptible; I = Intermediate; R = Resistant P = Positive; N = Negative MICS are expressed in micrograms per mL Antibiotic RSLT#1 RSLT#2 Susceptibility RSLT#3 RSLT#4Ciprofloxacin RClindamycin RErythromycin RGentamicin SLevofloxacin RLinezolid SMoxifloxacin ROxacillin SPenicillin RQuinupristin/Dalfopristin SRifampin STetracycline S Trimethoprim/Sulfa SVancomycin S Aerobic Culture Final report (Abnormal) Result 1 Staphylococcus aureus Comments: Heavy growthBased on resistance to penicillin and susceptibility to oxacillinthis isolate would be susceptible to:* Penicillinase-stable penicillins; such as: Cloxacillin Dicloxacillin Nafcilli (Abnormal) n* Beta-lactam/beta-lactamase inhibitor combinations; such as: Amoxicillin-clavulanic acid Ampicillin-sulbactam* Antistaphylococcal cephems; such as: Cefaclor Cefuroxime* Antistaphylococcal carbapenems; such as: Imipenem Meropenem Result 1 [id number] (Normal) Comments: No anaerobic growth in 72 hours. Anaerobic Culture Final report (Normal) :57 [id number] ([id number]) Comments: PATIENT WAS FASTINGPERFORMED BY: [facility] [id number] AFP, Serum, Tumor Marker 9.2 ng/mL (Abnormal) Range: 0.0-8.3 Comments: Khanh ECLIA methodology :57 PTT (Activated Partial Comments: PATIENT WAS FASTINGPERFORMED BY: [facility] [id number] Thromboplastin Time) ([id number]) aPTT 26 {sec} (Normal) Range: 24-33 Comments: This test has not been validated for monitoring unfractionated heparintherapy. aPTT-based therapeutic ranges for unfractionated heparintherapy have not been established. For general guidelines onHeparin monitoring, refer to the [employer] Directory of Services. :57 PT (Prothrobim Time) ([id number]) Comments: PATIENT WAS FASTINGPERFORMED BY: [facility] [id number] Prothrombin Time 10.5 {sec} (Normal) Range: 9.1-12.0 INR 1.0 (Normal) Range: 0.8-1.2 Comments: Reference interval is for non-anticoagulated patients. . Suggested INR therapeutic range for Vitamin K anta gonist therapy: Standard Dose (moderate intensity therapeutic range): 2.0 - 3.0 Higher intensity therapeutic range 2.5 - 3.5 :57 TSH (32064) Comments: PATIENT WAS FASTINGPERFORMED BY: [facility] [id number] TSH 3.200 {uIU/mL} (Normal) Range: 0.450-4.500 :57 CBC WITH MANUAL DIFF Comments: PATIENT WAS FASTINGPERFORMED BY: [facility] [id number] Information: [id number] ([id number]) Immature Grans (Abs) 0.0 {x10E3/uL} (Normal) Range: 0.0-0.1 Immature Granulocytes 0 % (Normal) Range: 0-2 Baso (Absolute) 0.1 {x10E3/uL} (Normal) Range: 0.0-0.2 Eos (Absolute) 0.2 {x10E3/uL} (Normal) Range: 0.0-0.4 Lymphs (Absolute) 1.4 {x10E3/uL} (Normal) Range: 0.7-3.1 Monocytes(Absolute) 0.4 {x10E3/uL} (Normal) Range: 0.1-0.9 Neutrophils (Absolute) 2.4 {x10E3/uL} (Normal) Range: 1.4-7.0 Basos 2 % (Normal) Range: 0-3 Eos 3 % (Normal) Range: 0-5 Monocytes 9 % (Normal) Range: 4-12 Lymphs 31 % (Normal) Range: 14-46 Neutrophils 55 % (Normal) Range: 40-74 Platelets 227 {x10E3/uL} (Normal) Range: 150-379 RDW 13.5 % (Normal) Range: 12.3-15.4 MCHC 33.7 g/dL (Normal) Range: 31.5-35.7 MCH 32.1 pg (Normal) Range: 26.6-33.0 Hematocrit 40.1 % (Normal) Range: 34.0-46.6 MCV 95 fL (Normal) Range: 79-97 Hemoglobin 13.5 g/dL (Normal) Range: 11.1-15.9 RBC 4.21 {x10E6/uL} (Normal) Range: 3.77-5.28 WBC 4.5 {x10E3/uL} (Normal) Range: 3.4-10.8 :57 METABOLIC PANEL, COMPREHENSIVE Comments: PATIENT WAS FASTINGPERFORMED BY: [facility] HospitalCepbxg[facility] [id number] ([id number]) ALT (SGPT) 15 [iU]/L (Normal) Range: 0-32 AST (SGOT) 21 [iU]/L (Normal) Range: 0-40 Alkaline Phosphatase, S 113 [iU]/L (Normal) Range: 39-117 Bilirubin, Total 0.4 mg/dL (Normal) Range: 0.0-1.2 A/G Ratio 2.1 (Normal) Range: 1.1-2.5 Globulin, Total 2.0 g/dL (Normal) Range: 1.5-4.5 Albumin, Serum 4.2 g/dL (Normal) Range: 3.5-5.5 Protein, Total, Serum 6.2 g/dL (Normal) Range: 6.0-8.5 Calcium, Serum 9.5 mg/dL (Normal) Range: 8.7-10.2 Carbon Dioxide, Total 25 mmol/L (Normal) Range: 18-29 Chloride, Serum 98 mmol/L (Normal) Range: 97-108 Potassium, Serum 4.4 mmol/L (Normal) Range: 3.5-5.2 BUN/Creatinine Ratio 10 (Normal) Range: 9-23 Sodium, Serum 137 mmol/L (Normal) Range: 134-144 eGFR If Africn Am 89 mL/min/1.73 (Normal) eGFR If NonAfricn Am 77 mL/min/1.73 (Normal) Creatinine, Serum 0.88 mg/dL (Normal) Range: 0.57-1.00 BUN 9 mg/dL (Normal) Range: 6-24 Glucose, Serum 125 mg/dL (Abnormal) Range: 65-99 :29 HgA1C , Office (91115) HgA1C , Office 5.4 % (Normal) Range: 4.6 - 7.1 :50 CMP GAP 8 (Normal) Range: 5-15 CO2 27.0 mmol/L (Normal) Range: 21.0-32.0 CL 102 mmol/L (Normal) Range: 98-107 K 4.2 mmol/L (Normal) Range: 3.5-5.1 NA 137 mmol/L (Normal) Range: 136-145 BIT 0.50 mg/dL (Normal) Range: 0.00-1.00 ALT 29 U/L (Normal) Range: 12-78 ALK 116 U/L (Normal) Range: 50-136 AST 20 U/L (Normal) Range: 15-37 AG 1.1 {RATIO} (Normal) Range: 0.9-2.4 CA 9.0 mg/dL (Normal) Range: 8.5-10.1 ALB 3.6 g/dL (Normal) Range: 3.4-5.0 GLOB 3.4 g/dL (Normal) Range: 2.7-4.2 TPROT 7.0 g/dL (Normal) Range: 6.4-8.2 BC 20.8 {RATIO} (Abnormal) Range: 10-20 GFRAA 62 mL/min (Normal) GFR 51 mL/min (Abnormal) CREAT 1.2 mg/dL (Abnormal) Range: 0.6-1.0 BUN 25 mg/dL (Abnormal) Range: 7-18 GLU 76 mg/dL (Normal) Range: 70-110 1-Gvz-194362:50 LIPID LDL 82 mg/dL (Normal) Range: 0-130 VLDL 13 mg/dL (Normal) Range: 5-40 HDL 55 mg/dL (Normal) Comments: Reference RangeHDL <40 mg/dL Low HDL CholesterolHDL >or= 60 mg/dL High HDL Cholesterol TRIG 66 mg/dL (Normal) Range: 0-199 Comments: Serum Triglycerides Reference IntervalNormal <150 mg/dLBorderline high 150 - 199 mg/dLHigh 200 - 499 mg/ dLVery High > or = 500 mg/dL CHOL 150 mg/dL (Normal) Comments: <200 mg/dL Qesxiwwhl520-205 mg/dL Borderline>240 mg/dL High Risk :50 HgA1C , Office (01330) HgA1C , Office 5.8 % (Normal) Range: 4.6 - 7.1 :27 BILAT SCRN DIGITAL & CAD Radiology Report See Note Comments: MAMMOGRAPHY - BILATERAL SCREENING REASON FOR EXAM: Female, 48 years old. Routine annual screeningexamination. PERTINENT HISTORY: Non-contributory. TECHNIQUE: Digital examination. Med iolateral ob (Normal) lique (MLO) andcraniocaudad (CC) views of both breasts were obtained. CAD: CAD wasperformed on this study. COMPARISON: Comparison is made with prior study dated January 27, 2012 andJuly 11, 2010. FINDINGS:The breast composition is composed of scattered fibroglandular tissuesranging from 25% to 50% of the breast. There are no dominant masses or suspicious calcificatio ns. No other significant abnormalities are identified. There has been nosignificant change since the prior study. IMPRESSION:Stable bilateral screening mammogram. Ye corine follow-up recommended. (A) ASSESSMENT CATEGORY:BIRADS Category 2: Benign finding(s). A letter regarding these resultswill be sent to the patient by the [facility] within 30 days. Approximately 10% of breast cancers are not detected by mammography. Anormal mammogram should not delay biopsy of a clinically suspiciousabnormality. Signed:Prashant Delgadillo M.D.S [facility] 2012 at 9:19:01 AM [id number] Signed GP/GP If you are the referring physician and would like to consult with theradiologist who provided this interpretation, please herbie Bonilla M.D. at [phone]. If this radiologist is unavailable, youwill be directed to another radiologist to assist. If you are a patient with a question regarding this report, pleaseco ntactyour referring physician directly. Professional Interpretation Provided By: [employer], Phone , These documents contain legally protected and confidential healthinfor mation intended only for the use of the individual or entity namedabove. If you are not the intended recipient, you are hereby notifiedthatany disclosure, copying, distribution, or other use of these do cuments isstrictly prohibited. If you have received this information in error,pleasenotify the sender immediately and arrange for the return or destructionofthese documents. Dictated on 06/15/13918 by Faustina KING,Maryellenscribed on 06/15/13919 by ITS IMPORTSign by Prashant Delgadillo MD on 06/15/13920 Sign by: Prashant Delgadillo MD 47-Ltt-01639:27 THYROID Radiology Report See Note Comments: STUDY: THYROID ULTRASOUND REASON FOR EXAM: Female, 48 years old. Followup for left thyroidnodule. TECHNIQUE: Ultrasound evaluation of the thyroid was performed withreal-time and static andrade-scale (Normal) imaging. COMPARISON: Comparison is made with prior examination dated August. FINDINGS: RIGHT LOBE: The right lobe of the thyroid gland measures 3.4 cm x 1.1 cmx1.1 cm. There is a homogeneous echotexture. There is a 5 mm 5 mm x 3mmwell-defined hypoechoic solid nodule in the midportion of the right lobe. LEFT LOBE: The left lobe of the thyroid gland m easures 3.6 cm x 1.1 cm x1.0 cm. There is a homogeneous echotexture. There is a stable 4 mm x 3mmx 3 mm solid hypoechoic nodule in the midpole. ISTHMUS: The isthmus measures 2.0 mm. IMPRESSION:Well defined subcentimeter hypoechoic nodules seen in the right and leftlobes of the thyroid. Signed:Prashant Delgadillo M.D.June 15, 2013 at 2:56:26 PM [phone] Signed GP/GP If you are the referring physician and would like to consult with theradiologist who provided this interpretation, please contact Sarmad Bonilla at [phone]. If this radiologist is unavailable, youwill be directed to another radiologist to assist. If you are a patient with a question regarding this report, pleasecontactyour referring physician directly. manda baugh Interpretation Provided By: [employer], Phone , These documents contain legally protected and confidential healthinformation intended only for the use of the indpateli dual or entity namedabkaitlin. If you are not the intended recipient, you are hereby notifiedthatany disclosure, copying, distribution, or other use of these documents isstrictly prohibited. If you have rec eived this information in error,pleasenotify the sender immediately and arrange for the return or destructionofthese documents. Dictated on 06/15/13 1456 by Faustina KING,Stanislavranscribed on 1732 by ITS IMPORTSign by Faustina KING,Prashant on 06/15/131732 Sign by: Prashant Delgadillo MD 9-Aec-240334:18 URINE GENESIS CULTURE-NITA COL Comments: PATIENT NOT FASTINGPERFORMED BY: [facility] [id number] Information: SRC: [id number] COUNT (32305) Antimicrobial MIHEAD (Normal) Comments: S = Susceptible; I = Intermediate; R = Resistant P = Positive; N = Negative MICS are expressed in micrograms per mL Antibiotic RSLT#1 RSLT#2 Susceptibility RSLT#3 RSLT#4Ciprofloxacin SLevofloxacin SNitrofurantoin SPenicillin STetracycline RVancomycin S Result 1 Enterococcus faecalis Comments: Greater than 100,000 colony forming units per mLNote: this isolate is vancomycin-susceptible.This information is provided for epidemiologic purposesonly: vancomycin is not among the antibiot icsrecommend (Normal) ed for therapy of urinary tract infectionscaused by Enterococcus.For Enterococcus species, cephalosporins, aminoglycosides (except forhigh-level resistance screening), clindamycin, and trimethoprim-sulf amethoxazole are not effective clinically. Fluoroquinolones areused primarily for treating urinary tract infections. (CLSI, O207-Y01,2009) Urine Culture,Comprehensive Final report (Normal) 04-Jun-20138:48 Urinalysis, Office (35375) UA - LEUKOCYTE ESTERASE Large (Normal) UA - NITRITE Positive (Normal) URINE UROBILINGN NITA TIMED 2 mg/dL (Normal) UA - PROTEIN Negative mg/dL (Normal) UA - BLOOD Negative (Normal) UA - KETONES Moderate mg/dL (Normal) UA - BILIRUBIN Moderate (Normal) UA - GLUCOSE Small mg/dL (Normal) 01-Kvx-94565:06 MICROALBUMIN: CREATININE RATIO Comments: PATIENT WAS FASTINGPERFORMED BY: [facility] [id number] (80686) AND (28272) Microalb/Creat Ratio 27.4 {mg/g_creat} (Normal) Range: 0.0-30.0 Microalbumin, Urine 85.2 ug/mL (Abnormal) Range: 0.0-17.0 Creatinine, Urine 311.1 mg/dL (Abnormal) Range: 15.0-278.0 68-Udj-21073:06 METABOLIC PANEL, Comments: PATIENT WAS FASTINGPERFORMED BY: [facility] [id number] Information: ADD [id number] AND DRAW FEE 99 9006 COMPREHENSIVE (81295) ALT (SGPT) 29 [iU]/L (Normal) Range: 0-32 AST (SGOT) 35 [iU]/L (Normal) Range: 0-40 Alkaline Phosphatase, S 107 [iU]/L (Normal) Range: 42-107 Comments: Effective July 30, 2013 the reference interval for Alkaline Phosphatase, S will be changing to: Age Male Female 0 - 1 day 45 - 111 45 - 111 2 - 5 days 46 - 119 46 - 119 6 - 10 days 48 - 229 48 - 229 11 - 3 0 days 59 - 414 59 - 414 1 - 6 months 91 - 445 91 - 445 7 - 12 months 124 - 341 124 - 341 1 - 3 years 130 - 317 130 - 317 4 - 6 years 133 - 309 133 - 309 7 - 12 years 134 - 349 134 - 349 13 years 143 - 396 68 - 209 14 years 107 - 340 62 - 149 15 years 84 - 254 54 - 121 16 years 71 - 186 49 - 108 17 years 61 - 146 45 - 101 18 years 56 - 127 43 - 101 >18 years 39 - 117 39 - 117 Bilirubin, Total 0.7 mg/dL (Normal) Range: 0.0-1.2 A/G Ratio 2.0 (Normal) Range: 1.1-2.5 Globulin, Total 2.3 g/dL (Normal) Range: 1.5-4.5 Albumin, Serum 4.6 g/dL (Normal) Range: 3.5-5.5 Calcium, Serum 10.0 mg/dL (Normal) Range: 8.7-10.2 Protein, Total, Serum 6.9 g/dL (Normal) Range: 6.0-8.5 Carbon Dioxide, Total 29 mmol/L (Abnormal) Range: 19-28 Chloride, Serum 100 mmol/L (Normal) Range: 97-108 Potassium, Serum 4.1 mmol/L (Normal) Range: 3.5-5.2 Sodium, Serum 141 mmol/L (Normal) Range: 134-144 BUN/Creatinine Ratio 15 (Normal) Range: 9-23 eGFR If Africn Am 78 mL/min/1.73 (Normal) eGFR If NonAfricn Am 68 mL/min/1.73 (Normal) Creatinine, Serum 0.98 mg/dL (Normal) Range: 0.57-1.00 BUN 15 mg/dL (Normal) Range: 6-24 Glucose, Serum 76 mg/dL (Normal) Range: 65-99 35-Dpo-11791:06 TSH (84983) Comments: PATIENT WAS FASTINGPERFORMED BY: [facility] [id number] TSH 3.040 {uIU/mL} (Normal) Range: 0.450-4.500 64-Znr-26270:06 LIPID PANEL (10362) Comments: PATIENT WAS FASTINGPERFORMED BY: [facility] Ygwhqe9242 [facility] [id number] LDL/HDL Ratio 2.4 {ratio_units} (Normal) Range: 0.0-3.2 HDL Cholesterol 55 mg/dL (Normal) Comments: According to ATP-III Guidelines, HDL-C >59 mg/dL is considered anegative risk factor for CHD. LDL Cholesterol Calc 134 mg/dL (Abnormal) Range: 0-99 VLDL Cholesterol Ramandeep 18 mg/dL (Normal) Range: 5-40 Cholesterol, Total 207 mg/dL (Abnormal) Range: 100-199 Triglycerides 89 mg/dL (Normal) Range: 0-149 :06 [id number] (55492) Comments: PATIENT WAS FASTINGPERFORMED BY: [facility] [id number] AFP, Serum, Tumor Marker 5.4 ng/mL (Normal) Range: 0.0-8.3 Comments: [facility] ECLIA methodology :06 PTT (Activated Partial Comments: PATIENT WAS FASTINGPERFORMED BY: [address] [id number] Thromboplastin Time) (18561) aPTT 27 {sec} (Normal) Range: 24-33 Comments: This test has not been validated for monitoring unfractionated heparintherapy. aPTT-based therapeutic ranges for unfractionated heparintherapy have not been established. For general guidelines onHeparin monitoring, refer to the [employer] Directory of Services. :06 PT (Prothrobim Time) (59391) Comments: PATIENT WAS FASTINGPERFORMED BY: [facility] [id number] INR 1.1 (Normal) Range: 0.8-1.2 Comments: Reference interval is for non-anticoagulated patients. . Suggested INR therapeutic range for Vitamin K anta gonist therapy: Standard Dose (moderate intensity therapeutic range): 2.0 - 3.0 Higher intensity therapeutic range 2.5 - 3.5 Prothrombin Time 11.0 {sec} (Normal) Range: 9.1-12.0 :51 HgA1C , Office (79565) HgA1C , Office 5.0 % (Normal) Range: 4.6 - 7.1 :48 CBCD PATHR Reviewed (Normal) Comments: Leukopenia.Relative neutrophilia.Clinical correlation necessary.Toni Yepez M.D. 02/16/13 AMENDED REPORT 02/16/13 8356 PATH REV previously reported as: January follReason: Pathologist comment added DC COMMENT: (Normal) Comments: LYMPHOPENIA NOTED ANC 3.2 3/uL (Normal) Range: 2.0-7.7 IG% 0.00 % (Normal) Range: 0.0-0.0 B% 0.3 % (Normal) Range: 0-1 E% 0.8 % (Normal) Range: 0-5 M% 4.9 % (Normal) Range: 0-10 L% 6.6 % (Abnormal) Range: 19-41 N% 87.4 % (Abnormal) Range: 47-70 MPV 10.2 fL (Normal) Range: 6.2-12.0 PLT 192 K/mm3 (Normal) Range: 150-450 RDWSD 48.5 fL (Abnormal) Range: 35.1-43.9 RDWCV 13.9 % (Normal) Range: 11.6-14.6 MCHC 33.0 g/dL (Normal) Range: 32-36 MCH 31.6 pg (Normal) Range: 27.0-32.0 MCV 95.6 fL (Normal) Range: 81-99 HCT 32.7 % (Abnormal) Range: 37-47 HGB 10.8 g/dL (Abnormal) Range: 12.0-15.0 RBC 3.42 {M/mm3} (Abnormal) Range: 4.2-5.4 WBC 3.6 {k/mm3} (Abnormal) Range: 4.4-11.0 71-Rbm-15920:48 CMP GAP 9 (Normal) Range: 5-15 CO2 25.0 mmol/L (Normal) Range: 21.0-32.0 CL 102 mmol/L (Normal) Range: 98-107 K 4.0 mmol/L (Normal) Range: 3.5-5.1 NA 136 mmol/L (Normal) Range: 136-145 BIT 0.80 mg/dL (Normal) Range: 0.00-1.00 ALT 17 U/L (Normal) Range: 12-78 ALK 68 U/L (Normal) Range: 50-136 AST 17 U/L (Normal) Range: 15-37 CA 9.3 mg/dL (Normal) Range: 8.5-10.1 AG 1.8 {RATIO} (Normal) Range: 0.9-2.4 GLOB 2.1 g/dL (Abnormal) Range: 2.7-4.2 ALB 3.7 g/dL (Normal) Range: 3.4-5.0 TPROT 5.8 g/dL (Abnormal) Range: 6.4-8.2 BC 8.2 {RATIO} (Abnormal) Range: 10-20 GFR 56 mL/min (Abnormal) GFRAA 68 mL/min (Normal) BUN 9 mg/dL (Normal) Range: 7-18 CREAT 1.1 mg/dL (Abnormal) Range: 0.6-1.0 GLU 91 mg/dL (Normal) Range: 70-110 :03 Rapid Flu (18261 x 2) Influenza A Ag positive b (Normal) :27 METABOLIC PANEL, COMPREHENSIVE Comments: PATIENT WAS FASTINGPERFORMED BY: [facility]CoTr[facility] HospitalOipqae0677 [facility] [id number] (40079) ALT (SGPT) 25 [iU]/L (Normal) Range: 0-32 AST (SGOT) 24 [iU]/L (Normal) Range: 0-40 Alkaline Phosphatase, S 71 [iU]/L (Normal) Range: 42-107 Bilirubin, Total 1.0 mg/dL (Normal) Range: 0.0-1.2 A/G Ratio 2.2 (Normal) Range: 1.1-2.5 Globulin, Total 2.0 g/dL (Normal) Range: 1.5-4.5 Albumin, Serum 4.4 g/dL (Normal) Range: 3.5-5.5 Protein, Total, Serum 6.4 g/dL (Normal) Range: 6.0-8.5 Calcium, Serum 9.9 mg/dL (Normal) Range: 8.7-10.2 Carbon Dioxide, Total 21 mmol/L (Normal) Range: 19-28 Chloride, Serum 99 mmol/L (Normal) Range: 97-108 Potassium, Serum 4.7 mmol/L (Normal) Range: 3.5-5.2 Sodium, Serum 138 mmol/L (Normal) Range: 134-144 BUN/Creatinine Ratio 17 (Normal) Range: 9-23 eGFR If Africn Am 51 mL/min/1.73 (Abnormal) eGFR If NonAfricn Am 45 mL/min/1.73 (Abnormal) Creatinine, Serum 1.39 mg/dL (Abnormal) Range: 0.57-1.00 BUN 24 mg/dL (Normal) Range: 6-24 Glucose, Serum 82 mg/dL (Normal) Range: 65-99 :27 LIPID PANEL (13619) Comments: PATIENT WAS FASTINGPERFORMED BY: [facility]OXTr[facility] HospitalIgovwx7317 [facility] [id number] LDL/HDL Ratio 0.9 {ratio_units} (Normal) Range: 0.0-3.2 LDL Cholesterol Calc 29 mg/dL (Normal) Range: 0-99 VLDL Cholesterol Ramandeep 17 mg/dL (Normal) Range: 5-40 HDL Cholesterol 32 mg/dL (Abnormal) Comments: According to ATP-III Guidelines, HDL-C >59 mg/dL is considered anegative risk factor for CHD. Cholesterol, Total 78 mg/dL (Abnormal) Range: 100-199 Triglycerides 84 mg/dL (Normal) Range: 0-149 :27 TSH (79235) Comments: PATIENT WAS FASTINGPERFORMED BY: [facility]OXTr[facility] HospitalWmzfel7961 [facility] [id number] TSH 3.990 {uIU/mL} (Normal) Range: 0.450-4.500 :27 CBC WITH MANUAL DIFF Comments: PATIENT WAS FASTINGPERFORMED BY: [facility] [id number] Information: [id number] (86636) Immature Grans (Abs) 0.0 {x10E3/uL} Range: 0.0-0.1 (Normal) Immature Granulocytes 0 % (Normal) Range: 0-2 Baso (Absolute) 0.0 {x10E3/uL} Range: 0.0-0.2 (Normal) Eos (Absolute) 0.0 {x10E3/uL} Range: 0.0-0.4 (Normal) Monocytes(Absolute) 0.3 {x10E3/uL} Range: 0.1-1.0 (Normal) Lymphs (Absolute) 0.9 {x10E3/uL} Range: 0.7-4.5 (Normal) Neutrophils (Absolute) 3.7 {x10E3/uL} Range: 1.8-7.8 (Normal) Basos 1 % (Normal) Range: 0-3 Eos 0 % (Normal) Range: 0-7 Monocytes 7 % (Normal) Range: 4-13 Lymphs 18 % (Normal) Range: 14-46 Neutrophils 74 % (Normal) Range: 40-74 Platelets 245 {x10E3/uL} Range: 140-415 (Normal) RDW 17.3 % (Abnormal) Range: 12.3-15.4 MCHC 31.1 g/dL (Abnormal) Range: 31.5-35.7 MCH 30.6 pg (Normal) Range: 26.6-33.0 MCV 98 fL (Abnormal) Range: 79-97 Hematocrit 38.0 % (Normal) Range: 34.0-46.6 Hemoglobin 11.8 g/dL (Normal) Range: 11.1-15.9 RBC 3.86 {x10E6/uL} Range: 3.77-5.28 (Normal) WBC 4.9 {x10E3/uL} Range: 4.0-10.5 (Normal) 03-Jan-2013 AFPT 4.4 ng/mL (Normal) Range: 0.0-8.3 9:39 Comments: [place] ECLIA methodologyPerformed at: [facility] - [facility] [id number] Director: Manuelito Mendez PhD, Phone: [phone] 69-Hkf-44429:39 CBCMD ANC 2.4 3/uL (Normal) Range: 2.0-7.7 IG% 0.00 % (Normal) Range: 0.0-0.0 B% 0.8 % (Normal) Range: 0-1 E% 0.0 % (Normal) Range: 0-5 M% 9.0 % (Normal) Range: 0-10 L% 23.7 % (Normal) Range: 19-41 N% 66.5 % (Normal) Range: 47-70 MPV 9.7 fL (Normal) Range: 6.2-12.0 PLT 241 K/mm3 (Normal) Range: 150-450 RDWSD 50.2 fL (Abnormal) Range: 35.1-43.9 RDWCV 14.0 % (Normal) Range: 11.6-14.6 MCHC 32.4 g/dL (Normal) Range: 32-36 MCH 31.8 pg (Normal) Range: 27.0-32.0 MCV 98.3 fL (Normal) Range: 81-99 HCT 34.9 % (Abnormal) Range: 37-47 HGB 11.3 g/dL (Abnormal) Range: 12.0-15.0 RBC 3.55 {M/mm3} (Abnormal) Range: 4.2-5.4 WBC 3.5 {k/mm3} (Abnormal) Range: 4.4-11.0 :39 CMP GAP 7 (Normal) Range: 5-15 CO2 28.0 mmol/L (Normal) Range: 21.0-32.0 CL 102 mmol/L (Normal) Range: 98-107 K 3.8 mmol/L (Normal) Range: 3.5-5.1 NA 137 mmol/L (Normal) Range: 136-145 BIT 0.90 mg/dL (Normal) Range: 0.00-1.00 ALT 20 U/L (Normal) Range: 12-78 ALK 61 U/L (Normal) Range: 50-136 AST 15 U/L (Normal) Range: 15-37 CA 9.2 mg/dL (Normal) Range: 8.5-10.1 AG 1.5 {RATIO} (Normal) Range: 0.9-2.4 GLOB 2.6 g/dL (Abnormal) Range: 2.7-4.2 ALB 4.0 g/dL (Normal) Range: 3.4-5.0 TPROT 6.6 g/dL (Normal) Range: 6.4-8.2 BC 13.0 {RATIO} (Normal) Range: 10-20 GFRAA 76 mL/min (Normal) GFR 63 mL/min (Normal) CREAT 1.0 mg/dL (Normal) Range: 0.6-1.0 BUN 13 mg/dL (Normal) Range: 7-18 GLU 82 mg/dL (Normal) Range: 70-110 :39 LIPID VLDL 21 mg/dL (Normal) Range: 5-40 LDL 70 mg/dL (Normal) Range: 0-130 HDL 39 mg/dL (Abnormal) Comments: Reference RangeHDL <40 mg/dL Low HDL CholesterolHDL >or= 60 mg/dL High HDL Cholesterol TRIG 103 mg/dL (Normal) Comments: Serum Triglycerides Reference IntervalNormal <150 mg/dLBorderline high 150 - 199 mg/dLHigh 200 - 499 mg/ dLVery High > or = 500 mg/dL CHOL 130 mg/dL (Normal) Comments: <200 mg/dL Maeyvehqr777-459 mg/dL Borderline>240 mg/dL High Risk :39 MIACRE tMICROCREAT 16.5 {mg/g_CRE} (Normal) MIALB 23.3 mg/L (Normal) CREU 141.0 mg/dL (Normal) :39 PT INR 1.1 (Normal) PTP 13.6 s (Normal) Range: 11.9-14.4 :39 PTT PTTP 29.5 s (Normal) Range: 24.1-36.2 :17 Rapid Flu (51199 x 2) Influenza A Ag neg (Normal) :29 HgA1C , Office (16554) HgA1C , Office 5.9 % (Normal) Range: 4.6 - 7.1 :53 FT3 2.9 pg/mL (Normal) Range: 2.18-3.98 :53 T4F 1.26 ng/dL (Normal) Range: 0.76-1.46 :53 TPO 8 {IU/mL} (Normal) Range: 0-34 Comments: Performed at: [facility] [id number] Director: Codi Robles MD, Phone: [phone] TSH 1.23 {uIU/mL} (Normal) Range: 0.358-3.74 :04 HgA1C , Office (80240) HgA1C , Office 5.8 % (Normal) Range: 4.6 - 7.1 :26 CBCMD Comments: ORDERED TSH LIPID CMP CBCMD MIACRE ORDERED VITD CMP CBCD RBCM NORM C+C {NORMAL} (Normal) PE ADEQUATE (Normal) EOS 3 % (Normal) Range: 0-5 MON 8 % (Normal) Range: 0-10 LYMPH 43 % (Abnormal) Range: 19-41 BAND 1 % (Normal) Range: 0-5 PMN 45 % (Abnormal) Range: 47-70 KRIS 100 (Normal) ANC 2.3 3/uL (Normal) Range: 2.0-7.7 PLT 207 K/mm3 (Normal) Range: 150-450 RDW 13.1 % (Normal) Range: 11.6-14.6 MCHC 34.0 g/dL (Normal) Range: 32-36 MCH 33.0 pg (Abnormal) Range: 27.0-32.0 MCV 97.2 fL (Normal) Range: 81-99 HCT 37.4 % (Normal) Range: 37-47 HGB 12.7 g.dL (Normal) Range: 12.0-15.0 Comments: Please note: Revised HEMOGLOBIN REFERENCE RANGES Reference Range effective 12. RBC 3.84 {M/mm3} (Abnormal) Range: 4.2-5.4 WBC 4.8 K/mm3 (Normal) Range: 4.4-11.0 04-May-20129:26 CMP Comments: ORDERED TSH LIPID CMP CBCMD MIAMARVEL ORDERED VITD CMP CBCD GAP 8 (Normal) Range: 5-15 CO2 29.0 mmol/L (Normal) Range: 21.0-32.0 CL 102 mmol/L (Normal) Range: 98-107 K 3.5 mmol/L (Normal) Range: 3.5-5.1 NA 139 mmol/L (Normal) Range: 136-145 BIT 0.40 mg/dL (Normal) Range: 0.00-1.00 ALT 26 U/L (Normal) Range: 12-78 ALK 80 U/L (Normal) Range: 50-136 AST 18 U/L (Normal) Range: 15-37 CA 8.6 mg/dL (Normal) Range: 8.5-10.1 AG 1.1 {RATIO} (Normal) Range: 0.9-2.4 GLOB 3.1 g/dL (Normal) Range: 2.7-4.2 ALB 3.5 g/dL (Normal) Range: 3.4-5.0 TPROT 6.6 g/dL (Normal) Range: 6.4-8.2 BC 12.2 {RATIO} (Normal) Range: 10-20 GFRAA 86 mL/min (Normal) GFR 71 mL/min (Normal) CREAT 0.9 mg/dL (Normal) Range: 0.6-1.0 BUN 11 mg/dL (Normal) Range: 7-18 GLU 82 mg/dL (Normal) Range: 70-110 :26 LIPID Comments: ORDERED TSH [facility]ID [facility]MP [facility] ORDERED VITD CMP CBCD VLDL 21 mg/dL (Normal) Range: 5-40 LDL 103 mg/dL (Normal) Range: 0-130 HDL 42 mg/dL (Normal) Comments: Reference Range HDL <40 mg/dL Low HDL Cholesterol HDL >or= 60 mg/dL High HDL Cholesterol TRIG 104 mg/dL (Normal) Comments: Serum Triglycerides Reference Interval Normal <150 mg/dL Borderline high 150 - 199 mg/dL High 200 - 499 mg/dL Very High > or = 500 mg/dL CHOL 166 mg/dL (Normal) Comments: <200 mg/dL Desirable 200-240 mg/dL Borderline >240 mg/dL High Risk :26 TSH 3.64 {uIU/mL} (Normal) Comments: ORDERED TSH LIPID CMP [facility] ORDERED VITD CMP CBCD Range: 0.358-3.74 :26 VITD 44.8 ng/mL (Normal) Comments: ORDERED TSH LIPID CMP [facility]MD [facility] ORDERED VITD CMP CBCD Range: 30.0-100.0 Comments: Vitamin D deficiency has been defined by the [facility] and an Endocrine Society practice guideline as alevel of serum 25-OH vitamin D less than 20 ng/mL (1,2).The Endocrine Society went on to further define vitamin Dinsufficiency as a level between 21 and 29 ng/mL (2).1. IOM (Tram of Medicine). 2010. Dietary reference intakes for calcium and D. [place]: The National Academies Press.2. Sami PATEL, Sophie MOORE, Xiomara LARES, et al. Evaluation, treatment, and prevention of vitamin D deficiency: an Endocrine Society clinical practice guideline. JCEM. 2010; 96(7): 1911-30.Performed at: [facility] [address] [place], [place] [id number] Director: Codi Robles MD, Phone: [phone] 27-Jan-20128:02 BILAT SCRN DIGITAL & CAD Radiology Report See Note (Normal) Comments: MAMMOGRAPHY - BILATERAL SCREENING REASON FOR EXAM: Female, 46 years old. Routine annual screeningexamination. PERTINENT HISTORY: Aunt with breast cancer. TECHNIQUE: Digital examination. Mediolat eral oblique (MLO) andcraniocaudad (CC) views of both breasts were obtained. CAD: CAD wasperformed on this study. COMPARISON: Comparison is made with prior studies dated July 11nd June 30, 2009. FINDINGS:The breast composition is almost entirely fatty replaced. There are no dominant masses or suspicious calcifications. A pacemakerbattery pack is seen in the left axillary region. No other significant abnormalities are identified. There has been nosignificant change since the prior study. IMPRESSION:Stable bilateral screening mammogram. Yearly follow-up recommended. (A) ASSESSMENT CA TEGORY:BIRADS Category 2: Benign finding(s). A letter regarding these resultswill be sent to the patient by the facility within 30 days. Approximately 10% of breast cancers are not detected by mammogr aphy. Anormal mammogram should not delay biopsy of a clinically suspiciousabnormality. Signed:Prashant Delgadillo M.D.January 27, 2012 at 9:46:02 AM EDTElectronically Signed GP/GP Professional Interpretat ion Provided By: [facility], , To consult with a radiologist regarding this report, please call our [id number] line @ Dicta dani on 01/27/12 0813 by Faustina KING,Dukeribed on 01/27/12 0950 by ITS IMPORTSign by Faustina KING,Prashant on 01/27/12 0951 Sign by: Prashant Delgadillo MD 80-Qax-230280:24 HgA1C , Office (36381) HgA1C , Office 5.7 % (Normal) Range: 4.6 - 7.1 58-Byx-909238:24 Blood Glucose , Office (92828) Blood Glucose , Office 89 (Normal) 73-Txn-707167:31 Urinalysis, Office (83610) UA - LEUKOCYTE ESTERASE Small (Normal) UA - NITRITE Positive (Normal) URINE UROBILINGN NITA TIMED Normal mg/dL (Normal) UA - PROTEIN 300 mg/dL (Normal) UA - PH 6.0 (Normal) UA - SPECIFIC GRAVITY 1.025 (Normal) UA - KETONES Small mg/dL (Normal) UA - BILIRUBIN Moderate (Normal) UA - GLUCOSE Negative (Normal) :15 HgA1C , Office (50968) HgA1C , Office 6.8 % (Normal) Range: 4.6 - 7.1 :15 Blood Glucose , Office (98319) Blood Glucose , Office 162 (Normal) 67-Ycu-333735:22 THYROID Radiology Report See Note (Normal) Comments: PROCEDURE: THYROID ULTRASOUND REASON FOR EXAM: Female, 46 years old. Follow-up for left thyroidnodule. TECHNIQUE: Ultrasound evaluation of the thyroid was performed withreal-time ultrasonography and static grayscale imaging. COMPARISON: Comparison is made with prior examination dated March. FINDINGS: RIGHT LOBE: Normal size of the right lobe of the thyroid. The rightlobeof the thyroi d gland measures 3.7 cm x 1.3 cm by .7 cm. There is ahomogeneous echotexture with normal echogenicity. There are nodemonstrated solid, cystic or complex lesions. LEFT LOBE: Normal size of the left lo be of the thyroid. The left lobeofthe thyroid gland measures 4.1 cm x 1.2 cm by 1.0 cm. There is ahomogeneous echotexture with normal echogenicity. There is a 5 mm x 2 mmx4 mm hypoechoic nodule in th e posterior aspect of the left lobelaterally.This is unchanged. ISTHMUS: The isthmus measures .17 cm. IMPRESSION:Stable subcentimeter nodule in the left lobe of the thyroid. Dictated on 09/07/11 112 2 by Arnaldo Delgadillo MDrieleTranscribed on 09/08/11 1329 by ITS IMPORTSign by Prashant Delgadillo MD on 09/08/11 1330 Sign by: Prashant Delgadillo MD :59 COMP METABOLIC GAP 9 (Normal) Range: 5-15 CO2 26.0 mmol/L (Normal) Range: 21.0-32.0 CL 104 mmol/L (Normal) Range: 98-107 K 3.9 mmol/L (Normal) Range: 3.5-5.1 NA 139 mmol/L (Normal) Range: 136-145 T BILI 0.50 mg/dL (Normal) Range: 0.00-1.00 ALT 48 U/L (Normal) Range: 12-78 ALK P 89 U/L (Normal) Range: 50-136 AST 59 U/L (Abnormal) Range: 15-37 CA 9.0 mg/dL (Normal) Range: 8.5-10.1 A/G 1.1 {RATIO} (Normal) Range: 0.9-2.4 GLOB 3.2 g/dL (Normal) Range: 2.7-4.2 ALB 3.5 g/dL (Normal) Range: 3.4-5.0 T PROT 6.7 g/dL (Normal) Range: 6.4-8.2 BUN/CRE 12.5 {RATIO} (Normal) Range: 10-20 EST GFR - AA 99 mL/min (Normal) EST GFR 82 mL/min (Normal) CREAT,SERUM 0.8 mg/dL (Normal) Range: 0.6-1.0 BUN 10 mg/dL (Normal) Range: 7-18 GLU 114 mg/dL (Abnormal) Range: 70-110 Comments: Fasting Glucose result from 110 to <126 mg/dL suggests IMPAIRED HOMEOSTASIS per A.D.A. criteria. :59 LIPID VLDL 38 mg/dL (Normal) Range: 5-40 LDL 48 mg/dL (Normal) Range: 0-130 HDL 19 mg/dL (Abnormal) Comments: Reference Range HDL <40 mg/dL Low HDL Cholesterol HDL >or= 60 mg/dL High HDL Cholesterol TRIG 191 mg/dL (Normal) Comments: Serum Triglycerides Reference Interval Normal <150 mg/dL Borderline high 150 - 199 mg/dL High 200 - 499 mg/dL Very High > or = 500 mg/dL CHOL 105 mg/dL (Normal) Comments: <200 mg/dL Desirable 200-240 mg/dL Borderline >240 mg/dL High Risk :59 MICROALB:CRE UR MALB:CREAT 27.5 {mg/g_CRE} (Normal) MICROALBUMIN,UR 75.4 mg/L (Normal) UR CREAT 273.7 mg/dL (Normal) :59 TSH 3.55 {uIU/mL} (Normal) Range: 0.358-3.74 :50 URINE GENESIS CULTURE-NITA COL Comments: PATIENT NOT FASTINGPERFORMED BY: [facility] Obmiod14[address] Vines RoadDublin [place] [id number] Information: SRC:URC [id number] COUNT ([id number]) Antimicrobial MIHEAD (Normal) Comments: S = Susceptible; I = Intermediate; R = Resistant P = Positive; N = Negative MICS are expressed in micrograms per mL Antibiotic RSLT#1 RSLT#2 Susceptibility RSLT#3 RSLT#4Amoxicillin/Clavulanic Acid SAmpicillin RCefazolin SCefepime SCeftriaxone SCefuroxime SCephalothin SCiprofloxacin SESBL NErtapenem SGentamicin SImipenem S Levofloxacin SNitrofurantoin IPiperacillin RTetracycline STobramycin STrimethoprim/Sulfa S Result 1 Klebsiella Comments: Greater than 100,000 colony forming units per mL pneumoniae (Normal) Urine Final report Culture,Comprehensive (Normal) :32 Urinalysis, Office (61613) UA - LEUKOCYTE ESTERASE Moderate (Normal) URINE UROBILINGN NITA TIMED Normal mg/dL (Normal) UA - PROTEIN 100 mg/dL (Normal) UA - PH 6.0 (Normal) UA - BLOOD Hemolyzed Large (Normal) UA - SPECIFIC GRAVITY 1.025 (Normal) UA - KETONES Negative mg/dL (Normal) UA - BILIRUBIN Negative (Normal) UA - GLUCOSE Negative (Normal) :28 Blood Glucose , Office (12833) Blood Glucose , Office 223 (Normal) :10 Urinalysis, Office (14763) UA - BILIRUBIN Small (Normal) UA - BLOOD Hemolyzed Large (Normal) UA - GLUCOSE Small (Normal) Comments: 100 UA - KETONES Negative mg/dL (Normal) UA - LEUKOCYTE ESTERASE Trace (Normal) UA - NITRITE Positive (Normal) UA - PH 5.0 (Normal) UA - PROTEIN 300 mg/dL (Normal) UA - SPECIFIC GRAVITY 1.020 (Normal) URINE UROBILINGN NITA TIMED 2 mg/dL (Normal) 5-Zil-937204:29 URINE GENESIS CULTURE-NITA COL Comments: PATIENT NOT FASTINGPERFORMED BY: [facility] [id number] RoadFormerly [facility], [facility] [place] [id number] Information: SRC:UR [id number] COUNT ([id number]) Antimicrobial MIHEAD (Normal) Comments: S = Susceptible; I = Intermediate; R = Resistant P = Positive; N = Negative MICS are expressed in micrograms per mL Antibiotic RSLT#1 RSLT#2 Susceptibility RSLT#3 RSLT#4Amikacin SAmoxicillin/Clavulanic Acid SAmpicillin RCefazolin SCefepime SCefoxitin SCeftriaxone SCiprofloxacin SESBL NErtapenem SGentamicin SImipenem S Levofloxacin SNitrofurantoin IPiperacillin/Tazobactam STigecycline STobramycin STrimethoprim/Sulfa S Result 1 Klebsiella pneumoniae Comments: Greater than 100,000 colony forming units per mL (Normal) Urine Final report (Normal) Culture,Comprehensive 4-Rjv-800990:31 Urinalysis, Office (87603) UA - BILIRUBIN Large (Normal) UA - BLOOD Hemolyzed Moderate (Normal) UA - GLUCOSE Moderate (Normal) Comments: 250 mg/dL UA - KETONES Small mg/dL (Normal) Comments: 15mg/dL UA - LEUKOCYTE ESTERASE Large (Normal) UA - NITRITE Positive (Normal) UA - PH 5.0 (Normal) UA - PROTEIN 300 mg/dL (Normal) UA - SPECIFIC GRAVITY 1.015 (Normal) URINE UROBILINGN NITA TIMED 8 mg/dL (Normal) 03-Tip-00087:28 CBCD,SMEAR DIFF RED CELL MORPH SeeNote {NORMAL} (Normal) Comments: Result: NORM C+C PLT EST SeeNote (Normal) Comments: Result: ADEQUATE EOS 2 % (Normal) Range: 0-5 MONOCYTE 7 % (Normal) Range: 0-10 LYMPH 34 % (Normal) Range: 19-41 SEGS 57 % (Normal) Range: 47-70 CELLS COUNTED 100 (Normal) ABSOLUTE NEUT 2.8 3/uL (Normal) Range: 2.0-7.7 Comments: AMENDED REPORT 04/15/11 1222 PLT 247 K/mm3 (Normal) Range: 150-450 RDW 14.2 % (Normal) Range: 11.6-14.6 MCHC 33.4 g/dL (Normal) Range: 32-36 MCH 34.1 pg (Abnormal) Range: 27.0-32.0 MCV 101.9 fL (Abnormal) Range: 81-99 HCT 39.5 % (Normal) Range: 37-47 HGB 13.2 g/dL (Normal) Range: 12.0-16.0 RBC 3.87 {M/mm3} (Abnormal) Range: 4.2-5.4 WBC 4.9 K/mm3 (Normal) Range: 4.4-11.0 :28 COMP METABOLIC GAP 13 (Normal) Range: 5-15 CO2 26.0 mmol/L (Normal) Range: 21.0-32.0 CL 100 mmol/L (Normal) Range: 98-107 K 3.7 mmol/L (Normal) Range: 3.5-5.1 NA 139 mmol/L (Normal) Range: 136-145 T BILI 0.60 mg/dL (Normal) Range: 0.00-1.00 ALT 65 U/L (Normal) Range: 12-78 ALK P 92 U/L (Normal) Range: 50-136 AST 43 U/L (Abnormal) Range: 15-37 CA 9.0 mg/dL (Normal) Range: 8.5-10.1 A/G 1.1 {RATIO} (Normal) Range: 0.9-2.4 GLOB 3.2 g/dL (Normal) Range: 2.7-4.2 ALB 3.5 g/dL (Normal) Range: 3.4-5.0 T PROT 6.7 g/dL (Normal) Range: 6.4-8.2 BUN/CRE 17.1 {RATIO} (Normal) Range: 10-20 EST GFR - AA 115 mL/min (Normal) EST GFR 95 mL/min (Normal) CREAT,SERUM 0.7 mg/dL (Normal) Range: 0.6-1.0 BUN 12 mg/dL (Normal) Range: 7-18 GLU 154 mg/dL (Abnormal) Range: 70-110 Comments: Fasting Glucose result greater than or equal to 126 mg/dL suggests DIABETES MELLITUS per A.D.A. criteria. :28 LIPID VLDL 33 mg/dL (Normal) Range: 5-40 HDL 34 mg/dL (Abnormal) Comments: Reference Range HDL <40 mg/dL Low HDL Cholesterol HDL >or= 60 mg/dL High HDL Cholesterol LDL 89 mg/dL (Normal) Range: 0-130 TRIG 164 mg/dL (Normal) Comments: Serum Triglycerides Reference Interval Normal <150 mg/dL Borderline high 150 - 199 mg/dL High 200 - 499 mg/dL Very High > or = 500 mg/dL CHOL 156 mg/dL (Normal) Comments: <200 mg/dL Desirable 200-240 mg/dL Borderline >240 mg/dL High Risk :28 TSH 4.48 {uIU/mL} (Abnormal) Range: 0.358-3.74 :28 HgA1C , Office (58075) HgA1C , Office 8.3 % (Abnormal) Range: 4.6 - 7.1 :28 Blood Glucose , Office (10664) Blood Glucose , Office 176 (Normal) :24 COMP METABOLIC CO2 22.0 mmol/L (Normal) Range: 21.0-32.0 GAP 11 (Normal) Range: 5-15 CL 103 mmol/L (Normal) Range: 98-107 K 4.0 mmol/L (Normal) Range: 3.5-5.1 NA 136 mmol/L (Normal) Range: 136-145 T BILI 0.40 mg/dL (Normal) Range: 0.00-1.00 ALT 99 U/L (Abnormal) Range: 12-78 ALK P 92 U/L (Normal) Range: 50-136 AST 80 U/L (Abnormal) Range: 15-37 CA 9.1 mg/dL (Normal) Range: 8.5-10.1 A/G 1.2 {RATIO} (Normal) Range: 0.9-2.4 GLOB 3.1 g/dL (Normal) Range: 2.7-4.2 ALB 3.8 g/dL (Normal) Range: 3.4-5.0 T PROT 6.9 g/dL (Normal) Range: 6.4-8.2 BUN/CRE 12.2 {RATIO} (Normal) Range: 10-20 EST GFR - AA 87 mL/min (Normal) EST GFR 72 mL/min (Normal) CREAT,SERUM 0.9 mg/dL (Normal) Range: 0.6-1.0 BUN 11 mg/dL (Normal) Range: 7-18 GLU 145 mg/dL (Abnormal) Range: 70-110 Comments: Fasting Glucose result greater than or equal to 126 mg/dL suggests DIABETES MELLITUS per A.D.A. criteria. :24 D BILI 0.11 mg/dL (Normal) Range: 0.00-0.30 :24 LIPID HDL 25 mg/dL (Abnormal) Comments: Reference Range HDL <40 mg/dL Low HDL Cholesterol HDL >or= 60 mg/dL High HDL Cholesterol LDL 81 mg/dL (Normal) Range: 0-130 TRIG 168 mg/dL (Normal) Comments: Serum Triglycerides Reference Interval Normal <150 mg/dL Borderline high 150 - 199 mg/dL High 200 - 499 mg/dL Very High > or = 500 mg/dL VLDL 34 mg/dL (Normal) Range: 5-40 CHOL 140 mg/dL (Normal) Comments: <200 mg/dL Desirable 200-240 mg/dL Borderline >240 mg/dL High Risk 19-Kyv-671825:54 BRAIN/HEAD W/WO CONTRAST Radiology See Note Comments: CLINICAL:Female, 45 years old. The patient has a history of occipital headaches. CT BRAIN WITHOUT CONTRAST TECHNIQUE:Transaxial CT imaging of the brain was performed without administrationofintravenous Report (Normal) contrast material. COMPARISON:Comparison is made with prior study dated January 23, 2008. FINDINGS:Normal size of the ventricles and extra- axial spaces for the patient'cata.Normal white matter tracts of the supratentorial brain. Normal basal ganglia. Normal bilateral thalami. There is no demonstrated vascular abnormality. There is no demonstrated extra- axial hemorrhage. There is nodemonstratedintrapa renchymal hemorrhage. Normal brainstem. Normal cerebellum. Normal basal cisterns. Normal soft tissue structures. Normal calvarium. Normal sella turcica. Normal skull base. Normal visualized orbital s tructures. Normal visualized paranasalsinuses. IMPRESSION:Normal unenhanced CT scan of the brain. Dictated on 10/13/10 1402 by Maryellen Delgadillo MDscribed on 10/13/101457 by ITS IMPORTSign by Prashant Delgadillo MD on 10/13/101457 Sign by: Prashant Delgadillo MD --- Addendum ADDENDUM This is an addendum.Note that the examination should cally d CT scan of the brain with andwithoutIV contrast. On the contrast exam, there once again, is evidence of a linear enhancingstructure within the CSF space overlying the right frontal lobe. Thismostlike ly represents a prominent cortical vein. A venous angioma should beruled out. This is less prominent than on prior examination.Once again, there are several small, well defined lucent defects in theoc cipital bone. These are unchanged. Dictated on 10/14/10855 by Maryellen Delgadillo MDscribed on 10/14/10855 by ITS IMPORTSign by Prashant Delgadillo MD on 02/09/11 1702 Sign by: Prashant Delgadillo MD 27-Onl-47427:44 HgA1C , Office (41927) HgA1C , Office 7.4 % (Abnormal) Range: 4.6 - 7.1 :44 Blood Glucose , Office (18566) Blood Glucose , Office 206 (Normal) :37 CBCD,SMEAR DIFF MACROCYTE 1+ (Normal) PLT EST SeeNote (Normal) Comments: Result: ADEQUATE RED CELL MORPH N CHROM {NORMAL} (Normal) EOS 2 % (Normal) Range: 0-5 MONOCYTE 7 % (Normal) Range: 0-10 LYMPH 43 % (Abnormal) Range: 19-41 SEGS 48 % (Normal) Range: 47-70 ABSOLUTE NEUT 2.1 3/uL (Normal) Range: 2.0-7.7 CELLS COUNTED 100 (Normal) MCHC 34.4 g/dL (Normal) Range: 32-36 PLT 239 K/mm3 (Normal) Range: 150-450 RDW 14.2 % (Normal) Range: 11.6-14.6 MCH 34.5 pg (Abnormal) Range: 27.0-32.0 MCV 100.4 fL (Abnormal) Range: 81-99 HCT 40.8 % (Normal) Range: 37-47 HGB 14.0 g/dL (Normal) Range: 12.0-16.0 RBC 4.06 {M/mm3} (Abnormal) Range: 4.2-5.4 WBC 4.6 K/mm3 (Normal) Range: 4.4-11.0 :37 COMP METABOLIC GAP 11 (Normal) Range: 5-15 CL 105 mmol/L (Normal) Range: 98-107 CO2 23.0 mmol/L (Normal) Range: 21.0-32.0 K 4.3 mmol/L (Normal) Range: 3.5-5.1 NA 139 mmol/L (Normal) Range: 136-145 ALT 82 U/L (Abnormal) Range: 12-78 T BILI 0.50 mg/dL (Normal) Range: 0.00-1.00 ALK P 130 U/L (Normal) Range: 50-136 AST 68 U/L (Abnormal) Range: 15-37 A/G 1.2 {RATIO} (Normal) Range: 0.9-2.4 CA 9.5 mg/dL (Normal) Range: 8.5-10.1 ALB 3.6 g/dL (Normal) Range: 3.4-5.0 GLOB 3.1 g/dL (Normal) Range: 2.7-4.2 T PROT 6.7 g/dL (Normal) Range: 6.4-8.2 BUN/CRE 21.4 {RATIO} (Abnormal) Range: 10-20 EST GFR - AA 116 mL/min (Normal) BUN 15 mg/dL (Normal) Range: 7-18 CREAT,SERUM 0.7 mg/dL (Normal) Range: 0.6-1.0 EST GFR 96 mL/min (Normal) GLU 129 mg/dL (Abnormal) Range: 70-110 Comments: Fasting Glucose result greater than or equal to 126 mg/dL suggests DIABETES MELLITUS per A.D.A. criteria. :37 LIPID LDL 65 mg/dL (Normal) Range: 0-130 VLDL 50 mg/dL (Abnormal) Range: 5-40 CHOL 147 mg/dL (Normal) Comments: <200 mg/dL Desirable 200-240 mg/dL Borderline >240 mg/dL High Risk HDL 32 mg/dL (Abnormal) Comments: Reference Range HDL <40 mg/dL Low HDL Cholesterol HDL >or= 60 mg/dL High HDL Cholesterol TRIG 252 mg/dL (Abnormal) Comments: Serum Triglycerides Reference Interval Normal <150 mg/dL Borderline high 150 - 199 mg/dL High 200 - 499 mg/dL Very High > or = 500 mg/dL :37 MICROALB:CRE UR MALB:CREAT 38.0 {mg/g_CRE} (Abnormal) MICROALBUMIN,UR 75.9 mg/L (Normal) UR CREAT 199.7 mg/dL (Normal) :37 TSH 3.41 {uIU/mL} (Normal) Range: 0.358-3.74 :59 BILAT SCRN DIGITAL & CAD Radiology Report See Note (Normal) Comments: Exam Number: [id number] AMMOGRAPHY - BILATERAL SCREENING INDICATION:Routine annual screening examination. PERTINENT HISTORY:Non-contributory. TECHNIQUE:Digital examination. Mediolateral oblique (MLO) an d craniocaudad (CC) views of both breasts were obtained. CAD was performed on this study. COMPARISON:Comparison is made with prior study dated June 30, 2009. FINDINGS:The breast composition is almost entirely fatty replaced. There are no masses or suspicious microcalcifications. No other significant abnormalities are identified. There has been no significant change since the prior study. IMPRESSIO N:Normal bilateral screening mammogram. Yearly follow-up recommended. ASSESSMENT CATEGORY:Category 2: Benign finding(s) Approximately 10% of breast cancers are not detected by mammography. A normal m ammogram should not delay biopsy of a clinically suspicious abnormality.This addendum is being created for the purpose of attaching a ResultCode to this exam. ADDENDUM: [id number] HPBI/MDS Reported By: PRASHANT DELGADILLO :14 HgA1C , Office (59456) HgA1C , Office 7.0 % (Normal) Range: 4.6 - 7.1 :14 Blood Glucose , Office (33836) Blood Glucose , Office 164 (Normal) :30 LASHA DIR SEMI-QL LASHA DIRECT 24 AU/mL (Normal) :30 ANTI-dsDNA AB 10 {IU/mL} (Normal) :30 TSH 6.39 {uIU/mL} (Abnormal) Range: 0.358-3.74 78-Iea-073742:35 C-REACTIVE PROTEIN (85408) Comments: PATIENT NOT FASTINGPERFORMED BY: [email or web address] Bobex.comT.[facility]. [facility] [id number] C-Reactive Protein, Quant 6.5 mg/L (Abnormal) Range: 0.0-4.9 86-Yui-064827:35 SED RATE ERYTHROCYTE (52650) Comments: PATIENT NOT FASTINGPERFORMED BY: [email or web address] [facility] [id number] Sedimentation Rate-Westergren 14 mm/h (Normal) Range: 0-20 65-Iox-951723:35 RHEUMATOID FACTOR-QUANT (62714) Comments: PATIENT NOT FASTINGPERFORMED BY: [email or web address] [facility]EC[facility] [id number] RA Latex Turbid. 7.6 {IU/mL} (Normal) Range: 0.0-13.9 90-Neh-355118:35 LASHA (ANTINUCLEAR ANTIBODY) Comments: PATIENT NOT FASTINGPERFORMED BY: [facility]zippedEC[facility] [id number] (27996) LASHA Direct Positive (Abnormal) :35 T3, FREE (TRIDOTHYRONINE) (61539) Comments: PATIENT NOT FASTINGPERFORMED BY: [facility] [id number] Triiodothyronine,Free,Serum 2.8 pg/mL (Normal) Range: 2.0-4.4 :35 T4, FREE (THYROXINE) (30221) Comments: PATIENT NOT FASTINGPERFORMED BY: [address] [id number] T4,Free(Direct) 0.76 ng/dL (Abnormal) Range: 0.82-1.77 :35 Anti-TPO Antibody (03728) Comments: PATIENT NOT FASTINGPERFORMED BY: [place] [id number] [facility] [id number] Thyroid Peroxidase (TPO) Ab <6 {IU/mL} (Normal) Range: 0-34 :35 TSH (23184) Comments: PATIENT NOT FASTINGPERFORMED BY: [place] [id number] [facility] [id number] TSH 5.630 {uIU/mL} (Abnormal) Range: 0.450-4.500 Comments: Please note reference interval change :35 METABOLIC PANEL, Comments: PATIENT NOT FASTINGPERFORMED BY: [place] [address]11[address] [facility] [id number] Information: [id number] COMPREHENSIVE (17821) ALT (SGPT) 55 [iU]/L (Abnormal) Range: 0-40 AST (SGOT) 54 [iU]/L (Abnormal) Range: 0-40 Alkaline Phosphatase, S 119 [iU]/L (Normal) Range: 25-150 A/G Ratio 2.1 (Normal) Range: 1.1-2.5 Bilirubin, Total 0.3 mg/dL (Normal) Range: 0.0-1.2 Albumin, Serum 4.0 g/dL (Normal) Range: 3.5-5.5 Globulin, Total 1.9 g/dL (Normal) Range: 1.5-4.5 Protein, Total, Serum 5.9 g/dL (Abnormal) Range: 6.0-8.5 Calcium, Serum 8.6 mg/dL (Abnormal) Range: 8.7-10.2 Carbon Dioxide, Total 22 mmol/L (Normal) Range: 20-32 Chloride, Serum 102 mmol/L (Normal) Range: 97-108 Potassium, Serum 4.3 mmol/L (Normal) Range: 3.5-5.2 BUN/Creatinine Ratio 12 (Normal) Range: 8-27 Sodium, Serum 139 mmol/L (Normal) Range: 135-145 eGFR AfricanAmerican >59 mL/min/1.73 Comments: Note: Persistent reduction for 3 months or more in an eGFR<60 mL/min/1.73 m2 defines CKD. Patients with eGFR values>/=60 mL/min/1.73 m2 may also have CKD if evidence of persistentproteinuria is (Normal) present. Additional information may be found [email or web address]. Creatinine, Serum 0.75 mg/dL (Normal) Range: 0.57-1.00 eGFR >59 mL/min/1.73 (Normal) BUN 9 mg/dL (Normal) Range: 5-26 Glucose, Serum 151 mg/dL (Abnormal) Range: 65-99 69-Rox-243327:02 GENESIS CULTURE-OTHER (34238) Comments: PATIENT NOT FASTINGPERFORMED BY: [facility]CoTr[facility] HospitalGzlugt57[facility] [id number] Information: SRC:THRT [id number] Result 1 Yeast isolated. (Normal) Comments: Moderate growthRequest for further identification must be madewithin 1 week. Upper Respiratory Culture Final report (Normal) 72-Daj-66092:37 Rapid Strep Test, Office (90795) Rapid Strep Test, Office Negative (Normal) 52-Wdi-645549:11 THYROID (HP) Radiology Report See Note (Normal) Comments: Exam Number: [id number] CLINICAL:This is a 45-year-old female patient with history of thyroid nodule. ULTRASOUND THYROID TECHNIQUE:Multiple views were obtained. COMPARISON:Comparison is made with prior s malinidy dated August 29, 2008. FINDINGS:Normal size, contour and echotexture of the right lobe of thethyroid gland, measuring 4 cm in length. There is no discrete solidor cystic lesion. Normal size, conto ur and echotexture of the left lobe of the thyroidgland, measuring 4.3 cm in length. There is a 4 mm x 3 mmhypoechoic nodule in the posterior aspect of the left lobe. Noother abnormality is seen. Norm al thyroid isthmus. There is no perithyroid pathology. IMPRESSION:4 mm x 3 mm hypoechoic nodule in the posterior aspect of the leftlobe.No nodule is seen in the right lobe. Reported By: PRASHANT DELGADILLO :41 COMP METABOLIC CL 100 mmol/L (Normal) Range: 98-107 CO2 26.0 mmol/L (Normal) Range: 21.0-32.0 GAP 8 (Normal) Range: 5-15 K 3.8 mmol/L (Normal) Range: 3.5-5.1 A/G 1.1 {RATIO} (Normal) Range: 0.9-2.4 ALB 3.5 g/dL (Normal) Range: 3.4-5.0 ALK P 123 U/L (Normal) Range: 50-136 ALT 72 U/L (Normal) Range: 12-78 AST 53 U/L (Abnormal) Range: 15-37 BUN 10 mg/dL (Normal) Range: 7-18 BUN/CRE 14.3 {RATIO} (Normal) Range: 10-20 CA 8.7 mg/dL (Normal) Range: 8.5-10.1 CREAT,SERUM 0.7 mg/dL (Normal) Range: 0.6-1.0 EST GFR 96 mL/min (Normal) EST GFR - AA 116 mL/min (Normal) GLOB 3.2 g/dL (Normal) Range: 2.7-4.2 NA 134 mmol/L (Abnormal) Range: 136-145 T BILI 0.50 mg/dL (Normal) Range: 0.00-1.00 T PROT 6.7 g/dL (Normal) Range: 6.4-8.2 GLU 141 mg/dL (Abnormal) Range: 70-110 Comments: Fasting Glucose result greater than or equal to 126 mg/dLsuggests DIABETES MELLITUS per A.D.A. criteria. 34-Esr-46027:41 LIPID CHOL 147 mg/dL (Normal) Comments: <200 mg/dL Bhyooadko409-883 mg/dL Borderline>240 mg/dL High Risk HDL 32 mg/dL (Abnormal) Comments: Reference RangeHDL <40 mg/dL Low HDL CholesterolHDL >or= 60 mg/dL High HDL Cholesterol LDL 89 mg/dL (Normal) Range: 0-130 TRIG 128 mg/dL (Normal) Comments: Serum Triglycerides Reference IntervalNormal <150 mg/dLBorderline high 150 - 199 mg/dLHigh 200 - 499 mg/ dLVery High > or = 500 mg/dL VLDL 26 mg/dL (Normal) Range: 5-40 20-Rjc-18503:41 TSH 4.85 {uIU/mL} (Abnormal) Range: 0.358-3.74 [id number]:50 URINE GENESIS CULTURE-NITA COL Comments: PATIENT NOT FASTINGPERFORMED BY: [facility] [id number]DuECU Health [facility] [id number] Information: SRC:UR ADD [id number] COUNT ([id number]) Result 1 Klebsiella pneumoniae Comments: 1,000 Colonies/mL (Normal) Result 2 MUG (Normal) Comments: Mixed urogenital floraGreater than 100,000 colony forming units per mL S = Susceptible; I = Intermediate; R = Resistant P = Positive; N = NegativeMICS are expressed in micrograms per mLAntibio tic RSLT#1 RSLT#2 RSLT#3 RSLT#4Amoxicillin/Clavulanic Acid SAmpicillin ICefepime SCeftriaxone SCefuroxime SCephalothin SCiprofloxacin SESBL NGentamicin SImipenem SLevofloxacin SNitrofurantoin SPiperacillin/Tazobactam STetracycline STobramycin STrimethoprim/Sulfa S Urine Final report (Normal) Culture,Comprehensive 28-Xnl-83678:55 Urinalysis, Office (46198) UA - LEUKOCYTE ESTERASE Small (Normal) UA - NITRITE Negative (Normal) URINE UROBILINGN NITA TIMED Normal mg/dL (Normal) UA - PROTEIN 30 mg/dL (Normal) UA - PH 6.0 (Normal) UA - BLOOD Negative (Normal) UA - SPECIFIC GRAVITY 1.020 (Normal) UA - KETONES Negative mg/dL (Normal) UA - BILIRUBIN Negative (Normal) UA - GLUCOSE Negative (Normal) 1-Hku-159905:37 PET/CT,TUMOR,BASE-THIGH,SUBS Radiology Report See Note (Normal) Comments: Exam Number: [id number] EXAM: Body PET study Head to Mid Thigh INDICATIONS: A 44-year-old female with history of lymphomapresenting for restaging examination. COMPARISON: CT of the cervical spine 11/25 03/05 TECHNIQUE: Following the IV administration of 13.7 mCi of F-18deoxyglucose, multiplanar image acquisitions of the head, neck,chest, abdomen and pelvis to level of mid thigh, obtained at onehour post radiopharmaceutical administration contemporaneouslyinterpreted with the current CT of the head, neck, chest, abdomenand pelvis, to level of mid thigh, dated 12/29/09 viacoregistration, and CT of t he cervical spine dated 12/19/09 reveals: FINDINGS:There is no quantitative scintigraphic evidence of abnormalincreased glucose metabolism on meticulous inspection of whole bodyacquisitions to include a ll three axis reconstructions. Normal physiologic distribution of the radiopharmaceutical isapparent in the hepatic and splenic parenchyma, both renal units,bladder and visualized intestinal tract. Sym metric glucosemetabolism is evident in the occipital, frontal, parietal andtemporal lobes of the cerebral cortex, as well as normalvisualization of the basal ganglia and cerebellar hemispheres.Diffuse i ntestinal tract activity is noted in all four quadrants ofthe abdomen and pelvis. Prominent radiopharmaceutical concentrationis noted at the level of the laryngeal structures which appearscontiguous to the cricopharyngeus musculature-cricoid cartilagewithout evidence of soft tissue thickening, most consistent withnormal physiologic distribution of the radiopharmaceutical.Ventricular pacemaker placeme nt is visualized. Heterogeneousradiopharmaceutical concentration is noted in the left upperanterior chest wall, contiguous to the visualized pacemaker. Thereis evidence of fatty metamorphosis-steatosi s involving the hepaticparenchyma. There is atherosclerotic calcification defined in thethoracic-abdominal aorta without evidence of dilatation- aneurysmformation. IMPRESSION:NEGATIVE EXAMINATION. Ther e is no definitive quantitativescintigraphic evidence of recurrent/viable neoplasm. Prominent radiopharmaceutical concentration demonstrated in all fourquadrants of the abdominal-pelvic mesentery, retro peritoneum, ismost consistent with normal physiologic distribution of theradiopharmaceutical. (Tatidil et al, Radiology 224:783, 2002). Enhanced radiopharmaceutical concentration demonstrated at the le velof the laryngeal structures, contiguous to the cricopharyngeusmusculature and cricoid cartilage is consistent with normalphysiologic distribution of the radiopharmaceutical. (Koffi etal, Journal of Nuclear Medicine 44:398P, 2003). w Reported By: ADELA MOLINA 7-Sck-082576:00 PRANEETH+ELPU24 3467 ALBUMIN,U 37.7 % (Normal) HLRCN-7-DELO,U 3.2 % (Normal) OYFGA-8-GECQ,U 7.6 % (Normal) BETA GLOB,U 23.1 % (Normal) GAMMA GLOB,U 28.5 % (Normal) PRANEETH RESULT,U Comment (Normal) Comments: No monoclonality detected. M-SPIKE,UR% SeeNote % (Normal) Comments: Result: Not Observed PROTEIN, U24 62.1 {mg/24_hr} Range: 30.0-150.0 (Normal) PROTEIN,UR 2.3 mg/dL (Normal) Range: 0.0-15.0 5-Gwh-361948:15 C-REACTIVE PROT < 2.90 mg/L (Normal) Range: 0.0-3.0 Comments: C-Reactive Protein (CRP) provides useful information for thediagnosis, therapy and monitoring of inflammatory processesand associated diseases. For the evaluation of Relative Riskfor Cardiovascular Dise ase, a High Sensitivity CRP (HSCRP)should be ordered. [id number]:15 CBCD,SMEAR DIFF PLT EST SeeNote (Normal) Comments: Result: ADEQUATE RED CELL MORPH SeeNote {NORMAL} (Normal) Comments: Result: NORM C+C EOS 2 % (Normal) Range: 0-5 LYMPH 41 % (Normal) Range: 19-41 MONOCYTE 3 % (Normal) Range: 0-10 ABSOLUTE NEUT 2.4 3/uL (Normal) Range: 2.0-7.7 CELLS COUNTED 100 (Normal) PLT 211 K/mm3 (Normal) Range: 150-450 RDW 13.7 % (Normal) Range: 11.6-14.6 SEGS 54 % (Normal) Range: 47-70 MCH 33.3 pg (Abnormal) Range: 27.0-32.0 MCHC 33.7 g/dL (Normal) Range: 32-36 MCV 98.8 fL (Normal) Range: 81-99 HCT 40.4 % (Normal) Range: 37-47 HGB 13.6 g/dL (Normal) Range: 12.0-16.0 RBC 4.09 {M/mm3} (Abnormal) Range: 4.2-5.4 WBC 4.3 K/mm3 (Abnormal) Range: 4.4-11.0 :15 COMP METABOLIC CL 104 mmol/L (Normal) Range: 98-107 CO2 23.0 mmol/L (Normal) Range: 21.0-32.0 GAP 11 (Normal) Range: 5-15 K 4.0 mmol/L (Normal) Range: 3.5-5.1 NA 138 mmol/L (Normal) Range: 136-145 T BILI 0.60 mg/dL (Normal) Range: 0.00-1.00 A/G 1.3 {RATIO} (Normal) Range: 0.9-2.4 ALB 3.7 g/dL (Normal) Range: 3.4-5.0 ALK P 90 U/L (Normal) Range: 50-136 ALT 74 U/L (Normal) Range: 12-78 AST 58 U/L (Abnormal) Range: 15-37 BUN/CRE 12.5 {RATIO} (Normal) Range: 10-20 CA 8.9 mg/dL (Normal) Range: 8.5-10.1 EST GFR - AA 99 mL/min (Normal) GLOB 2.8 g/dL (Normal) Range: 2.7-4.2 T PROT 6.5 g/dL (Normal) Range: 6.4-8.2 BUN 10 mg/dL (Normal) Range: 7-18 CREAT,SERUM 0.8 mg/dL (Normal) Range: 0.6-1.0 EST GFR 82 mL/min (Normal) GLU 122 mg/dL (Abnormal) Range: 70-110 Comments: Fasting Glucose result from 110 to <126 mg/dLsuggests IMPAIRED HOMEOSTASIS per A.D.A. criteria. :15 ESR SED RATE 11 mm/h (Normal) Range: 0-20 6-Zzw-491591:15 LDH 197 U/L (Abnormal) Range: 100-190 5-Qww-680497:15 LIPID HDL 30 mg/dL (Abnormal) Comments: Reference RangeHDL <40 mg/dL Low HDL CholesterolHDL >or= 60 mg/dL High HDL Cholesterol LDL 100 mg/dL (Normal) Range: 0-130 VLDL 24 mg/dL (Normal) Range: 5-40 TRIG 120 mg/dL (Normal) Comments: Serum Triglycerides Reference IntervalNormal <150 mg/dLBorderline high 150 - 199 mg/dLHigh 200 - 499 mg/ dLVery High > or = 500 mg/dL CHOL 154 mg/dL (Normal) Comments: <200 mg/dL Irzdbjnpu726-937 mg/dL Borderline>240 mg/dL High Risk :15 PROT.[id number] NOTE Comment (Normal) Comments: Protein electrophoresis scan will follow via computer,mail, or electrocardiographic technician delivery.Performed at: [address] [id number] Director: Kamlesh Arana MD ALBUMIN,UR 54.2 % (Normal) OJLZA-8-MPDV,U 1.2 % (Normal) HJQNV-7-FSEN,U 9.4 % (Normal) BETA GLOB,U 23.4 % (Normal) GAMMA GLOB,U 11.8 % (Normal) M-SPIKE,U SeeNote % (Normal) Comments: Result: Not Observed PROTEIN,UR 13.6 mg/dL (Normal) Range: 0.0-15.0 :15 SPE [id number] A/G RATIO 1.8 (Normal) Range: 0.7-2.0 GLOBULIN, TOTAL 2.2 g/dL (Normal) Range: 2.0-4.5 INTERPRETATION Comment (Normal) Comments: The SPE pattern reflects hypogammaglobulinemia. Loweredgamma globulin levels may be found with monoclonalgammopathies, B-cell deficiency states, protein losingdiseases, or may be transient in children. Serumimmunofixation and examination of the urine for Bence Jonesprotein may be indicated if warranted by the clinicalpicture.Protein electrophoresis scan will follow via computer,mail, or electrocardiographic technician delivery. M-SPIKE SeeNote g/dL (Normal) Comments: Result: Not Observed GAMMA GLOBULIN 0.4 g/dL (Abnormal) Range: 0.5-1.6 ALBUMIN 3.9 g/dL (Normal) Range: 3.2-5.6 ALPHA-1 GLOBUL 0.2 g/dL (Normal) Range: 0.1-0.4 ALPHA-2 GLOBUL 0.7 g/dL (Normal) Range: 0.4-1.2 BETA GLOBULIN 0.9 g/dL (Normal) Range: 0.6-1.3 PROTEIN,TOTAL 6.1 g/dL (Normal) Range: 6.0-8.5 90-Loy-[id number]:28 BRAIN/HEAD WITHOUT CONTRAST Radiology Report See Note (Normal) Comments: Exam Number: [id number] CT SCAN OF BRAIN HISTORYLytic lesion, lymphoma. Scans were obtained at 2.5-mm intervals through the posterior fossaand 5-mm intervals through the remainder of the brai n. The curr entstudy is compared to the examination of September 12, 2006. There isno focal area of abnormal attenuation seen within the brainparenchyma. Sulci and ventricles are within normal limits. Noshift of midline, mass effect, extra-axial collection or acuteintracranial bleed is identified. There are a number of benign defects which can appear in the occipitalregion. These include occipital scallope d defects which are examplesof pacchionian impression. Over the years they produce thinning andoutward blistering. When large they may produce marking thinning andoutward blistering of the outer tabl e. Skull defects in theoccipital region that appear to be interdeploic probably representlarge venous lakes. Loss of osseous structure in the occipital regioncan also be seen probably secondary to la rge arachnoid granulations.These normal variants simulate lytic lesions in the occipital region.The lesions seen in the occipital region on the CT of the cervicalspine of December 19, 2009, are larger than the defects seen on theexamination of September 12, 2006. Nevertheless, the possibility thatthese are benign findings must be considered. For further evaluation,bone scan is suggested. IMPRESSION1) T here is no abnormality of the brain parenchyma.2) There are a number of normal processes which form lytic defects inthe occipital bones as discussed above. In this case, the lytic areasare slightly mo re extensive than seen September 12, 2006. However,since the change is relatively small, it is likely that theserepresent normal variants. Bone scan is suggested for confirmation. Reported By: TRUE NAGEL M.D. 12-Smx-841164:23 SPINE,CERVICAL WITHOUT CONTRAS Radiology Report See Note (Normal) Comments: Exam Number: [id number] CLINICAL:44 year old female with cervical radiculopathy. Patient has pain inthe center of the neck and burning in both shoulders and down botharms and numbness in the hands, worse on the left. Patient has ahistory of non-Hodgkin's lymphoma status post chemotherapy andradiation therapy and stem cell transplant. CT CERVICAL SPINE WITHOUT CONTRAST TECHNIQUE:High resolution transax ial imaging was performed without contrastmaterial. Sagittal and coronal images were reconstructed. COMPARISON:None FINDINGS:Normal craniovertebral junction. Normal anterior atlantoaxialarticulation. Normal odontoid process. There is a 7-mm lyticlesion in the in the right occipital cranial bone which couldrepresent tumor involvement.. Normal cervical lordosis. Normal alignment of the cervicalverte brae. Normal visualized cervical vertebral bodies. Normal visualized posterior osseous elements and spinous processes. C2-3: Normal endplates. Normal disc height. Normal discmorphology. Normal right uncovertebral joint. Normal right factjoint. Normal right neural foramen. Normal left uncovertebraljoint. Normal left facet joint. Normal left neural foramen.Normal central canal. C3-4: Normal en dplates. Normal disc height. Normal discmorphology. Normal right uncovertebral joint. Normal right factjoint. Normal right neural foramen. Normal left uncovertebraljoint. Normal left facet joint. Normal left neural foramen.Normal central canal. C4-5: Normal endplates. Normal disc height. Normal discmorphology. Normal right uncovertebral joint. Normal right factjoint. Normal right neural foramen. Normal left uncovertebraljoint. Normal left facet joint. Normal left neural foramen.Normal central canal. C5-6: Normal endplates. Normal disc height. Normal discmorphology. Normal right uncovertebral joint. Normal right factjoint. Normal right neural foramen. Normal left uncovertebraljoint. Normal left facet joint. Normal left neural foramen.Normal central canal. C6-7: Normal end plates. Normal disc height. Normal discmorphology. Normal right uncovertebral joint. Normal right factjoint. Normal right neural foramen. Normal left uncovertebraljoint. Normal left facet joint. Normal left neural foramen.Normal central canal. C7-T1: There is posterior osteophyte involvement of both vertebralbodies which are impinging on the thecal sac and spinal cord. Thereis narrowing of th e disk space consistent with degenerative diskdisease. Normal disc morphology. Normal right uncovertebral joint.Normal right fact joint. Normal right neural foramen. Normal leftuncovertebral joint. Normal left facet joint. Normal left neuralforamen. Normal central canal. Normal visualized soft tissue structures. IMPRESSION:C7-T1 degenerative disk disease with posterior spondylosis.Lytic lesion in the right occipital cranial bone. This couldrepresent tumor involvement. Reported By: SHARYN JASMINE M.D. 20-Prv-800445:50 Blood Glucose , Office (02935) Blood Glucose , Office 105 (Normal) 63-Xkd-855649:50 HgA1C , Office (26628) HgA1C , Office 6.1 % (Normal) Range: 4.6 - 7.1 65-Ofj-556198:24 URINE GENESIS CULTURE-NITA COL Comments: PATIENT NOT FASTINGPERFORMED BY: [id number] [id number] Information: SRC:UR [id number] COUNT (63316) Antimicrobial MIHEAD (Normal) Comments: S = Susceptible; I = Intermediate; R = Resistant P = Positive; N = NegativeMICS are expressed in micrograms per mLAntibiotic RSLT#1 RSLT#2 RSLT#3 RSLT#4Am oxicillin/Cl Susceptibility avulanic Acid SAmpicillin RCefepime SCeftriaxone SCefuroxime SCephalothin SCiprofloxacin SESBL NGentamicin SImipenem SLevofloxacin SNitrofurantoin SPiperacillin/Tazobactam Harshad tracycline STobramycin STrimethoprim/Sulfa S Result 1 Klebsiella pneumoniae Comments: Greater than 100,000 colony forming units per mL (Normal) Urine Final report (Normal) Culture,Comprehensive 98-Lnp-616413:41 Urinalysis, Office (94020) UA - LEUKOCYTE ESTERASE Large (Normal) UA - NITRITE Negative (Normal) URINE UROBILINGN NITA TIMED Normal mg/dL (Normal) UA - PROTEIN 100 mg/dL (Normal) UA - PH 5.0 (Normal) UA - BLOOD Hemolyzed Large (Normal) UA - SPECIFIC GRAVITY 1.025 (Normal) UA - KETONES Negative mg/dL (Normal) UA - BILIRUBIN Negative (Normal) UA - GLUCOSE Negative (Normal) :19 BLOOD GAS, O2 SAT ONLY - INITL Radiology Report See Note (Normal) Comments: Exam Number: [id number] Procedure completed. Please see MEDICAL RECORDS reports in PCI - OP - OP NOTE LET - LETTER. Reported By: BOONE CH M.D. :19 BLOOD GAS, O2 SAT ONLY - SUBSQ Radiology Report See Note (Normal) Comments: Exam Number: [id number] Procedure completed. Please see MEDICAL RECORDS reports in PCI - OP - OP NOTE LET - LETTER. Reported By: BOONE CH M.D. :19 BLOOD GAS, O2 SAT ONLY - SUBSQ Radiology Report See Note (Normal) Comments: Exam Number: [id number] Procedure completed. Please see MEDICAL RECORDS reports in PCI - OP - OP NOTE LET - LETTER. Reported By: BOONE CH M.D. 04-Aug-20096:45 RHC/LHC/CORS/LV Radiology Report See Note (Normal) Comments: Exam Number: [id number] Procedure completed. Please see MEDICAL RECORDS reports in PCI - OP - OP NOTE LET - LETTER. Reported By: BOONE CH M.D. :59 BMP BUN 15 mg/dL (Normal) Range: 7-18 BUN/CRE 21.4 {RATIO} (Abnormal) Range: 10-20 CA 9.6 mg/dL (Normal) Range: 8.5-10.1 CL 105 mmol/L (Normal) Range: 98-107 CO2 24.0 mmol/L (Normal) Range: 21.0-32.0 CREAT,SERUM 0.7 mg/dL (Normal) Range: 0.6-1.0 EST GFR 96 mL/min (Normal) EST GFR - AA 116 mL/min (Normal) GAP 6 (Normal) Range: 5-15 GLU 97 mg/dL (Normal) Range: 70-110 K 4.2 mmol/L (Normal) Range: 3.5-5.1 NA 135 mmol/L (Abnormal) Range: 136-145 6-Srx-840569:59 CBC HCT 40.9 % (Normal) Range: 37-47 HGB 13.7 g/dL (Normal) Range: 12.0-16.0 MCH 33.6 pg (Abnormal) Range: 27.0-32.0 MCHC 33.5 g/dL (Normal) Range: 32-36 MCV 100.2 fL (Abnormal) Range: 81-99 MPV 7.7 fL (Normal) Range: 6.5-12.0 PLT 251 K/mm3 (Normal) Range: 150-450 RBC 4.08 {M/mm3} (Abnormal) Range: 4.2-5.4 RDW 13.5 % (Normal) Range: 11.6-14.6 WBC 4.4 K/mm3 (Normal) Range: 4.4-11.0 :03 CULTURE, URINE URINE CULTURE See Note {CFU/mL} (Normal) Comments: COLONY COUNT 11,000-25,000 ORGANISM 1: MIXED GRAM POSITIVE ORGANISMS :58 Urinalysis, Office (13663) UA - BILIRUBIN Negative (Normal) UA - BLOOD Negative (Normal) UA - GLUCOSE Negative (Normal) UA - KETONES Negative mg/dL (Normal) UA - LEUKOCYTE ESTERASE Small (Normal) Comments: aw UA - NITRITE Negative (Normal) UA - PH 6.0 (Normal) UA - PROTEIN Negative mg/dL (Normal) UA - SPECIFIC GRAVITY 1.010 (Normal) URINE UROBILINGN NITA TIMED Normal mg/dL (Normal) :53 HgA1C , Office (26548) HgA1C , Office 5.7 % (Normal) Range: 4.6 - 7.1 :53 Blood Glucose , Office (16125) Blood Glucose , Office 133 (Normal) :24 LIPID CHOL 159 mg/dL (Normal) Comments: <200 mg/dL Desirable 200-240 mg/dL Borderline >240 mg/dL High Risk HDL 36 mg/dL (Normal) Comments: Reference Range HDL <40 mg/dL Low HDL Cholesterol HDL >or= 60 mg/dL High HDL Cholesterol LDL 96 mg/dL (Normal) Range: 0-130 TRIG 134 mg/dL (Normal) Comments: Serum Triglycerides Reference Interval Normal <150 mg/dL Borderline high 150 - 199 mg/dL High 200 - 499 mg/dL Very High > or = 500 mg/dL VLDL 27 mg/dL (Normal) Range: 5-40 :24 LIVER ALB 3.8 g/dL (Normal) Range: 3.4-5.0 ALK P 91 U/L (Normal) Range: 50-136 ALT 49 U/L (Normal) Range: 30-65 AST 31 U/L (Normal) Range: 15-37 D BILI 0.15 mg/dL (Normal) Range: 0.00-0.30 T BILI 0.60 mg/dL (Normal) Range: 0.00-1.00 T PROT 7.0 g/dL (Normal) Range: 6.4-8.2 :53 HgA1C , Office (15315) HgA1C , Office 10.0 % (Abnormal) Range: 4.6 - 7.1 :53 Blood Glucose , Office (67079) Blood Glucose , Office 410 (Normal) :46 CBCD,SMEAR DIFF BAND 1 % (Normal) Range: 0-5 CELLS COUNTED 100 (Normal) EOS 2 % (Normal) Range: 0-5 LYMPH 32 % (Normal) Range: 19-41 MONOCYTE 8 % (Normal) Range: 0-10 PLT 215 K/mm3 (Normal) Range: 150-450 PLT EST SeeNote (Normal) Comments: Result: ADEQUATE RED CELL MORPH SeeNote {NORMAL} (Normal) Comments: Result: NORM C+C SEGS 57 % (Normal) Range: 47-70 HCT 40.9 % (Normal) Range: 37-47 HGB 14.4 g/dL (Normal) Range: 12.0-16.0 MCH 33.8 pg (Abnormal) Range: 27.0-32.0 MCHC 35.2 g/dL (Normal) Range: 32-36 MCV 96.0 fL (Normal) Range: 81-99 RBC 4.26 {M/mm3} (Normal) Range: 4.2-5.4 RDW 14.1 % (Normal) Range: 11.6-14.6 WBC 4.0 K/mm3 (Abnormal) Range: 4.4-11.0 :46 COMP METABOLIC A/G 1.2 {RATIO} (Normal) Range: 0.9-2.4 ALB 3.4 g/dL (Normal) Range: 3.4-5.0 ALK P 190 U/L (Abnormal) Range: 50-136 ALT 38 U/L (Normal) Range: 30-65 AST 24 U/L (Normal) Range: 15-37 BUN 13 mg/dL (Normal) Range: 7-18 BUN/CRE 14.4 {RATIO} (Normal) Range: 10-20 CA 8.8 mg/dL (Normal) Range: 8.5-10.1 CL 101 mmol/L (Normal) Range: 98-107 CO2 23.0 mmol/L (Normal) Range: 21.0-32.0 CREAT,SERUM 0.9 mg/dL (Normal) Range: 0.6-1.0 EST GFR 72 mL/min (Normal) EST GFR - AA 87 mL/min (Normal) GAP 9 (Normal) Range: 5-15 GLOB 2.8 g/dL (Normal) Range: 2.7-4.2 K 3.7 mmol/L (Normal) Range: 3.5-5.1 NA 133 mmol/L (Abnormal) Range: 136-145 T BILI 0.40 mg/dL (Normal) Range: 0.00-1.00 T PROT 6.2 g/dL (Abnormal) Range: 6.4-8.2 GLU 253 mg/dL (Abnormal) Range: 70-110 Comments: Glucose result greater than or equal to 200 mg/dLsuggests DIABETES MELLITUS per A.D.A. criteria. :46 D BILI 0.12 mg/dL (Normal) Range: 0.00-0.30 :46 LIPID CHOL 158 mg/dL (Normal) Comments: <200 mg/dL Desirable 200-240 mg/dL Borderline >240 mg/dL High Risk HDL 32 mg/dL (Abnormal) Comments: Reference Range HDL <40 mg/dL Low HDL Cholesterol HDL >or= 60 mg/dL High HDL Cholesterol LDL 77 mg/dL (Normal) Range: 0-130 TRIG 245 mg/dL (Abnormal) Comments: Serum Triglycerides Reference Interval Normal <150 mg/dL Borderline high 150 - 199 mg/dL High 200 - 499 mg/dL Very High > or = 500 mg/dL VLDL 49 mg/dL (Abnormal) Range: 5-40 4-Eli-998940:46 MICROALB:CRE UR MALB:CREAT 33.3 {mg/g_CRE} (Abnormal) MICROALBUMIN,UR 62.2 mg/L (Normal) UR CREAT 186.7 mg/dL (Normal) 00-Bkn-247080:11 LIPID Comments: PATIENT NOT FASTING/DEMANDED TO BE DRAWN CHOL 157 mg/dL (Normal) Comments: <200 mg/dL Desirable 200-240 mg/dL Borderline >240 mg/dL High Risk HDL 40 mg/dL (Normal) Comments: Reference Range HDL <40 mg/dL Low HDL Cholesterol HDL >or= 60 mg/dL High HDL Cholesterol LDL 86 mg/dL (Normal) Range: 0-130 TRIG 153 mg/dL (Normal) Comments: Serum Triglycerides Reference Interval Normal <150 mg/dL Borderline high 150 - 199 mg/dL High 200 - 499 mg/dL Very High > or = 500 mg/dL VLDL 31 mg/dL (Normal) Range: -40 94-Yss-081534:11 LIVER Comments: PATIENT NOT FASTING/DEMANDED TO BE DRAWN ALT 43 U/L (Normal) Range: 30-65 D BILI 0.07 mg/dL (Normal) Range: 0.00-0.30 T BILI 0.35 mg/dL (Normal) Range: 0.00-1.00 ALB 3.4 g/dL (Normal) Range: 3.4-5.0 ALK P 210 U/L (Abnormal) Range: 50-136 AST 27 U/L (Normal) Range: 15-37 T PROT 6.4 g/dL (Normal) Range: 6.4-8.2 17-Dom-083778:23 Urinalysis, Office (61882) Comments: done BC UA - BILIRUBIN Negative (Normal) UA - BLOOD Hemolyzed Large (Normal) UA - GLUCOSE Large (Normal) Comments: > 1000mg/dL UA - KETONES Negative mg/dL (Normal) UA - LEUKOCYTE ESTERASE Moderate (Normal) UA - NITRITE Negative (Normal) UA - PH 6.0 (Normal) UA - PROTEIN 30 mg/dL (Normal) UA - SPECIFIC GRAVITY 1.010 (Normal) URINE UROBILINGN NITA TIMED Normal mg/dL (Normal) 36-Gpf-468657:44 MYOCARD PERF SPECT REST/STRESS Radiology Report See Note (Normal) Comments: Exam Number: [id number] MYOCARDIAL PERFUSION SCAN TECHNIQUEThe patient was injected with 11 mCi of Tc99m Cardiolite andsubsequently rest SPECT Cardiolite nuclear imaging was obtained in thehorizontal jessica g, vertical long, and short axes views. The patientunderwent pharmacologic (Lexiscan) evaluation with a peak heart rateof 107 beats per minute (60% predicted maximum heart rate) with a peakblood pressu re of 140/82 mmHg. The patient was injected with 34.2 mCiof Tc99m Cardiolite and subsequently stress SPECT Cardiolite nuclearimaging was obtained in the horizontal long, vertical long, and shortaxes vi ews. Gated Cardiolite study at peak stress was obtained. INTERPRETATIONRest SPECT Cardiolite nuclear imaging demonstrates areas of somewhatdiminished myocardial perfusion/tracer uptake in portions of t he midto distal anteroseptal segment as well as the inferoapical/lateralapical segments. Status post stress there appears to be areas ofdiminished to absence of tracer uptake in the basal anterior, bas alanteroseptal, mid anterior, mid anteroseptal segments as well as thebasal to mid-lateral segments. There are similar type findings on theresting and stress polar map images. There appears to be dimi nishedend-systolic thickening and brightening and diminished myocardialthickening and inward wall motion in the aforementioned areas with areported LVEF of 37%. The aforementioned findings are suggesti ve of acombination of shifting soft tissue attenuation/artifact (moreprominent at rest as opposed to stress) in the inferoapical/lateralapical areas as well as concerns of stress-induced myocardial isch emiain the anterior, anteroseptal and lateral areas described. IMPRESSION1. Rest and stress SPECT Cardiolite nuclear imaging demonstratemyocardial perfusion changes which appear concerning for a combin ationof soft tissue attenuation/artifact (more prominent at rest as opposedto stress) in the inferoapical/lateral apical segments as well asconcerns of stress-induced myocardial ischemia in portions of thebasal to midanterior, basal to midanteroseptal and basal tomid-lateral segments.2. The gated Cardiolite study reports an LVEF of 37%. Reported By: NEO MORRIS M.D. 53-Jvt-78101:39 SPINE, LUMBAR W/W/O CONTRAST Radiology Report See Note (Normal) Comments: Exam Number: [id number] MAGNETIC RESONANCE IMAGING OF THE LUMBAR SPINE WITHOUT AND WITHCONTRAST ENHANCEMENT CLINICAL STATEMENTLow back pain, left leg burning and numbness, history of lymphoma withthoraci c epidural tumor. COMPARISON STUDYMRI lumbar spine January 30, 2007 Vertebral heights and alignment are maintained. The marrow spaceshave normal signal intensity. The spinal canal is adequate. Theconus me dullaris is normal. No intradural or extradural tumors areidentified. There has been interval development of a small but definite leftparacentral to posterior disc protrusion at L5-S1 which just contac tsthe left S1 nerve root. The remaining lumbar discs are normal. IMPRESSION1. Interval development of a small left paracentral to posterior discprotrusion at L5-S1, just contacting the left S1 nerve r oot.2. No evidence of epidural tumor or other abnormality. Reported By: SUSAN GOMEZ M.D. 29-Qdc-537623:04 CULTURE, URINE URINE CULTURE See Note {CFU/mL} (Normal) Comments: COLONY COUNT 25,000-50,000 ORGANISM 1: MIXED GRAM POSITIVE ORGANISMS [id number]-[id number]:15 Urinalysis, Office (19464) UA - LEUKOCYTE ESTERASE Small (Normal) Comments: aw UA - NITRITE Negative (Normal) UA - PH 5.0 (Normal) UA - PROTEIN Negative mg/dL (Normal) URINE UROBILINGN NITA TIMED Normal mg/dL (Normal) UA - BILIRUBIN Negative (Normal) UA - BLOOD Negative (Normal) UA - GLUCOSE Negative (Normal) UA - KETONES Negative mg/dL (Normal) UA - SPECIFIC GRAVITY 1.025 (Normal) 35-Inh-147171:09 Blood Glucose , Office (54223) Blood Glucose , Office 231 (Normal) 29-Bab-883589:09 HgA1C , Office (77573) HgA1C , Office 7.1 % (Normal) Range: 4.6 - 7.1 25-Npg-580144:42 CBCD,SMEAR DIFF CELLS COUNTED 100 (Normal) HCT 41.2 % (Normal) Range: 37-47 HGB 14.1 g/dL (Normal) Range: 12.0-16.0 LYMPH 33 % (Normal) Range: 19-41 MCH 32.0 pg (Normal) Range: 27.0-32.0 MCHC 34.2 g/dL (Normal) Range: 32-36 MCV 93.4 fL (Normal) Range: 81-99 MONOCYTE 3 % (Normal) Range: 0-10 PLT 255 K/mm3 (Normal) Range: 150-450 PLT EST SeeNote (Normal) Comments: Result: ADEQUATE RBC 4.41 {M/mm3} (Normal) Range: 4.2-5.4 RDW 14.4 % (Normal) Range: 11.6-14.6 RED CELL MORPH SeeNote {NORMAL} (Normal) Comments: Result: NORM C+C SEGS 64 % (Normal) Range: 47-70 WBC 4.3 K/mm3 (Abnormal) Range: 4.4-11.0 [id number]-[id number] COMP METABOLIC A/G 1.2 {RATIO} (Normal) Range: 0.9-2.4 ALB 3.6 g/dL (Normal) Range: 3.4-5.0 ALK P 163 U/L (Abnormal) Range: 50-136 ALT 47 U/L (Normal) Range: 30-65 AST 25 U/L (Normal) Range: 15-37 CA 9.1 mg/dL (Normal) Range: 8.5-10.1 CL 103 mmol/L (Normal) Range: 98-107 CO2 23.8 mmol/L (Normal) Range: 21.0-32.0 GAP 12 (Normal) Range: 5-15 GLOB 2.9 g/dL (Normal) Range: 2.7-4.2 K 4.1 mmol/L (Normal) Range: 3.5-5.1 NA 139 mmol/L (Normal) Range: 136-145 T BILI 0.56 mg/dL (Normal) Range: 0.00-1.00 BUN 11 mg/dL (Normal) Range: 7-18 BUN/CRE 13.8 {RATIO} (Normal) Range: 10-20 CREAT,SERUM 0.8 mg/dL (Normal) Range: 0.6-1.0 EST GFR 83 mL/min (Normal) EST GFR - AA 101 mL/min (Normal) Comments: ESTIMATED GLOMERULAR FILTRATION RATE The National Kidney Foundation (NKF) guidelines forChronic kidney disease (CKD) recommends all laboratoriesestimate the level of glomerular filtration ra te (GFR)in p atients from age 18 - 70 years of age.The eGFR for patient's is the eGFRmultiplied by 1.212. [facility] Laboratory uses the abbreviated Modification of Diet inRenal Disease (MDRD) study equati on to calculate the eGFR.The Estimated GFR equation is not applicable for patients<18 years of age or patients >70 years of age.The following conditions may alter the eGFR calculationresult: extre mes in body size, severe malnutrition orobesity, skeletal muscle disease, paraplegia, quadriplegia,vegetarian diet, , certain drug therapy and rapidlychanging kidney function. Association o f GFR and Staging of Kidney Disease*GFR (mL/min) With Kidney Disease W/O Kidney Disease>/= 90 Stage One [id number] - 89 Stage Two Suspect Decreased GFR30 - 59 Stage Three Stage Three15 - 29 Stage Four Stage Four< 15 or Dialysis Stage Five Stage Five *Each stage assumes the associ ated GFR level has been ineffect for at least three months.Additional studies & clinical assessments are indicated toconclude diagnosis of Chronic Kidney Disease (CKD). GLU 174 mg/dL (Abnormal) Range: 70-110 Comments: Fasting Glucose result greater than or equal to 126 mg/dL suggests DIABETES MELLITUS per A.D.A. criteria. T PROT 6.5 g/dL (Normal) Range: 6.4-8.2 55-Vef-[id number]:42 LIPID CHOL 182 mg/dL (Normal) Comments: <200 mg/dL Desirable 200-240 mg/dL Borderline >240 mg/dL High Risk HDL 44 mg/dL (Normal) Comments: Reference Range HDL <40 mg/dL Low HDL Cholesterol HDL >or= 60 mg/dL High HDL Cholesterol LDL 102 mg/dL (Normal) Range: 0-130 TRIG 178 mg/dL (Normal) Comments: Serum Triglycerides Reference Interval Normal <150 mg/dL Borderline high 150 - 199 mg/dL High 200 - 499 mg/dL Very High > or = 500 mg/dL VLDL 36 mg/dL (Normal) Range: 5-40 80-Ing-000800:42 MICROALB:CRE UR MALB:CREAT 35.4 {mg/g_CRE} (Abnormal) MICROALBUMIN,UR 54.7 mg/L (Normal) UR CREAT 154.6 mg/dL (Normal) 13-Jbn-600764:42 TSH 2.57 {uIU/mL} (Normal) Range: 0.34-4.82 :40 CULTURE, URINE URINE CULTURE See Note {CFU/mL} (Normal) Comments: COLONY COUNT 1000-10,000 ORGANISM 1: MIXED GRAM POS & NEG ORGANISMS :36 Urinalysis, Office (11627) UA - BILIRUBIN Negative (Normal) UA - BLOOD Non Hemolyzed Trace (Normal) UA - KETONES Negative mg/dL (Normal) UA - LEUKOCYTE ESTERASE Moderate (Normal) UA - NITRITE Negative (Normal) UA - PH 5.0 (Normal) UA - PROTEIN Negative mg/dL (Normal) UA - SPECIFIC GRAVITY 1.015 (Normal) URINE UROBILINGN NITA TIMED Normal mg/dL (Normal) UA - GLUCOSE Negative (Normal) 27-Fkb-193655:20 CULTURE, URINE URINE CULTURE See Note {CFU/mL} (Normal) Comments: COLONY COUNT 25,000-50,000 ORGANISM 1: MIXED GRAM POS & NEG ORGANISMS :12 Urinalysis, Office (18726) UA - BILIRUBIN Negative (Normal) UA - BLOOD Negative (Normal) UA - GLUCOSE Negative (Normal) UA - KETONES Negative mg/dL (Normal) UA - LEUKOCYTE ESTERASE Small (Normal) UA - NITRITE Negative (Normal) UA - PH 6.0 (Normal) UA - PROTEIN Negative mg/dL (Normal) UA - SPECIFIC GRAVITY 1.005 (Normal) URINE UROBILINGN NITA TIMED Normal mg/dL (Normal) 45-Zqo-724375:08 CBCD,SMEAR DIFF CELLS COUNTED 100 (Normal) EOS 2 % (Normal) Range: 0-5 HCT 38.5 % (Normal) Range: 37-47 HGB 13.2 g/dL (Normal) Range: 12.0-16.0 LYMPH 27 % (Normal) Range: 19-41 MCH 32.8 pg (Abnormal) Range: 27.0-32.0 MCHC 34.3 g/dL (Normal) Range: 32-36 MCV 95.6 fL (Normal) Range: 81-99 MONOCYTE 7 % (Normal) Range: 0-10 PLT 286 K/mm3 (Normal) Range: 150-450 PLT EST SeeNote (Normal) Comments: Result: ADEQUATE RBC 4.03 {M/mm3} (Abnormal) Range: 4.2-5.4 RDW 15.1 % (Abnormal) Range: 11.6-14.6 RED CELL MORPH SeeNote {NORMAL} (Normal) Comments: Result: NORM C+C SEGS 64 % (Normal) Range: 47-70 WBC 5.1 K/mm3 (Normal) Range: 4.4-11.0 :08 COMP METABOLIC A/G 1.5 {RATIO} (Normal) Range: 0.9-2.4 ALB 3.8 g/dL (Normal) Range: 3.4-5.0 ALK P 163 U/L (Abnormal) Range: 50-136 ALT 41 U/L (Normal) Range: 30-65 AST 19 U/L (Normal) Range: 15-37 BUN 11 mg/dL (Normal) Range: 7-18 BUN/CRE 12.2 {RATIO} (Normal) Range: 10-20 CA 9.1 mg/dL (Normal) Range: 8.5-10.1 CL 100 mmol/L (Normal) Range: 98-107 CO2 25.3 mmol/L (Normal) Range: 21.0-32.0 CREAT,SERUM 0.9 mg/dL (Normal) Range: 0.6-1.0 GAP 11 (Normal) Range: 5-15 GLOB 2.6 g/dL (Abnormal) Range: 2.7-4.2 GLU 136 mg/dL (Abnormal) Range: 70-110 Comments: Fasting Glucose result greater than or equal to 126 mg/dL suggests DIABETES MELLITUS per A.D.A. criteria. K 3.7 mmol/L (Normal) Range: 3.5-5.1 NA 136 mmol/L (Normal) Range: 136-145 T BILI 0.40 mg/dL (Normal) Range: 0.00-1.00 T PROT 6.4 g/dL (Normal) Range: 6.4-8.2 :08 MG 1.8 mg/dL (Normal) Range: 1.5-2.2 :08 TSH 3.54 {uIU/mL} (Normal) Range: 0.34-4.82 :28 Blood Glucose , Office (87989) Blood Glucose , Office 124 (Normal) :28 HgA1C , Office (32124) HgA1C , Office 6.1 % (Normal) Range: 4.6 - 7.1 :38 CERULOPLAS 1560 21.3 mg/dL (Normal) Range: 17.9-53.3 Comments: Performed At: [facility] [place], [place] [id number] :38 FERRITIN 189 ng/mL (Normal) Range: 8-252 :38 HEP-ABC 075787 HB CORE [id number] SeeNote (Normal) Comments: Result: Negative HB SURF AG 6510 SeeNote (Normal) Comments: Result: Negative HEBSAB 6395 < 0.1 (Normal) Range: 0.00-0.99 Comments: Status of Immunity Anti-HBs Level Inconsistent with Immunity 0.00 - 0.99 Consistent with Immunity >0.99 . An Index Value of 1.00 is equivalent to 10 mIU/mL. However the magnitude of the Index Value is not indicative of the total amount of antibody present. . Please note reference interval change HEP A AB,T.6726 SeeNote (Normal) Comments: Result: Negative HEP A IgM 6734 SeeNote (Normal) Comments: Result: Negative HEP B CORE,TOT SeeNote (Normal) Comments: Result: Negative HVC Ab <0.1 (Normal) Range: 0.0-0.9 Comments: NegativeNot infected with HCV, unless recent infection issuspected or other evidence exists to indicate HCVinfection. AMENDED REPORT 05/21/08 1908 HVC Ab previously reported as: RIBA RESULT <TEST NOT PERFORMED> (Normal) :38 LIVER ALB 3.5 g/dL (Normal) Range: 3.4-5.0 ALK P 162 U/L (Abnormal) Range: 50-136 ALT 50 U/L (Normal) Range: 30-65 AST 21 U/L (Normal) Range: 15-37 D BILI 0.05 mg/dL (Normal) Range: 0.00-0.30 T BILI 0.38 mg/dL (Normal) Range: 0.00-1.00 T PROT 6.5 g/dL (Normal) Range: 6.4-8.2 14-Kpl-570085:38 MITOCHN AB 6650 <20.0 {Units} (Normal) Range: 0.0-20.0 Comments: Negative 0.0 - 20.0 Equivocal 20.1 - 24.9 Positive >24.9 . Mitochondrial (M2) Antibodies are found in 90-96% of patients with primary biliary cirrhosis. 93-Pmf-909705:03 GGTP 61 U/L (Abnormal) Range: 5-55 :03 LIVER ALB 3.7 g/dL (Normal) Range: 3.4-5.0 ALK P 161 U/L (Abnormal) Range: 50-136 ALT 35 U/L (Normal) Range: 30-65 AST 18 U/L (Normal) Range: 15-37 D BILI 0.06 mg/dL (Normal) Range: 0.00-0.30 T BILI 0.33 mg/dL (Normal) Range: 0.00-1.00 T PROT 6.5 g/dL (Normal) Range: 6.4-8.2 6-Dxk-214093:02 THYROID (HP) Radiology Report See Note (Normal) Comments: Exam Number: [id number] THYROID ULTRASOUND HISTORYThyromegaly. High-resolution, real-time linear images were obtained. The currentstudy is compared to the examination of August 11, 2004. The rightt hyroid lobe is mildly enlarged measuring 5 x 0.9 x 1.4 cm. The leftthyroid lobe measures 4.4 x 1 x 1.5 cm. The isthmus measures 3 mm inthickness. There is a single nodule identified on the right. It islocated in the mid-thyroid lobe and measures 5 x 3 x 4 mm. There isalso a single nodule identified on the left. This is located in themid-thyroid lobe and measures 4 x 2 x 4 mm. The small nodules werenot seen on the examination of August 11, 2004. The findings aremost likely to represent multinodular goiter. For further evaluation,a followup ultrasound in 6 months is suggested. IMPRESSIONThe re are single nodules identified in each lobe of the thyroid. Thefindings are most likely to represent multinodular goiter. If thereis no suspicious palpable abnormality, a followup ultrasound in 6mon ths is recommended. Reported By: TRUE NAGEL M.D. 86-Wka-156777:05 Blood Glucose , Office (35727) Blood Glucose , Office 135 (Normal) 02-Nbw-031163:05 HgA1C , Office (60574) HgA1C , Office 5.6 % (Normal) Range: 4.6 - 7.1 :02 CBCD,SMEAR DIFF ANISO 1+ (Normal) CELLS COUNTED 100 (Normal) EOS 5 % (Normal) Range: 0-5 HCT 36.6 % (Abnormal) Range: 37-47 HGB 12.6 g/dL (Normal) Range: 12.0-16.0 LYMPH 21 % (Normal) Range: 19-41 MCH 32.3 pg (Abnormal) Range: 27.0-32.0 MCHC 34.4 g/dL (Normal) Range: 32-36 MCV 94.0 fL (Normal) Range: 81-99 MONOCYTE 8 % (Normal) Range: 0-10 PLT 267 K/mm3 (Normal) Range: 150-450 PLT EST SeeNote (Normal) Comments: Result: ADEQUATE RBC 3.89 {M/mm3} (Abnormal) Range: 4.2-5.4 RDW 15.9 % (Abnormal) Range: 11.6-14.6 RED CELL MORPH N CHROM {NORMAL} (Normal) SEGS 66 % (Normal) Range: 47-70 WBC 3.4 K/mm3 (Abnormal) Range: 4.4-11.0 :02 COMP METABOLIC A/G 1.3 {RATIO} (Normal) Range: 0.9-2.4 ALB 3.7 g/dL (Normal) Range: 3.4-5.0 ALK P 167 U/L (Abnormal) Range: 50-136 ALT 35 U/L (Normal) Range: 30-65 AST 17 U/L (Normal) Range: 15-37 BUN 12 mg/dL (Normal) Range: 7-18 BUN/CRE 13.3 {RATIO} (Normal) Range: 10-20 CA 9.1 mg/dL (Normal) Range: 8.5-10.1 CL 102 mmol/L (Normal) Range: 98-107 CO2 25.9 mmol/L (Normal) Range: 21.0-32.0 CREAT,SERUM 0.9 mg/dL (Normal) Range: 0.6-1.0 GAP 9 (Normal) Range: 5-15 GLOB 2.9 g/dL (Normal) Range: 2.7-4.2 GLU 84 mg/dL (Normal) Range: 70-110 K 3.9 mmol/L (Normal) Range: 3.5-5.1 NA 137 mmol/L (Normal) Range: 136-145 T BILI 0.44 mg/dL (Normal) Range: 0.00-1.00 T PROT 6.6 g/dL (Normal) Range: 6.4-8.2 :02 LIPID CHOL 169 mg/dL (Normal) Comments: <200 mg/dL Desirable 200-240 mg/dL Borderline >240 mg/dL High Risk HDL 45 mg/dL (Normal) Comments: Reference Range HDL <40 mg/dL Low HDL Cholesterol HDL >or= 60 mg/dL High HDL Cholesterol LDL 89 mg/dL (Normal) Range: 0-130 TRIG 173 mg/dL (Normal) Comments: Serum Triglycerides Reference Interval Normal <150 mg/dL Borderline high 150 - 199 mg/dL High 200 - 499 mg/dL Very High > or = 500 mg/dL VLDL 35 mg/dL (Normal) Range: 5-40 :02 MICROALBUMIN,UR 10.1 mg/L (Normal) :02 TSH 2.82 {uIU/mL} (Normal) Range: 0.34-4.82 :02 VITAMIN B12 377 pg/mL (Normal) Range: 211-911 :16 BRAIN/HEAD W/WO CONTRAST Radiology Report See Note (Normal) Comments: Exam Number: [id number] CT BRAIN WITHOUT AND WITH INTRAVENOUS CONTRAST REASON FOR EXAMINATIONPersistent headache. Worse in the occipital region traveling to thefrontal area. History of Burkitt lymphoma . Patient is post stem cell transplant in 2006. Contiguous transverse scans are obtained from skull base vertex priorto and after intravenous administration of 100 cc of Isovue 300. Axial reconstruction s are obtained from skull base to vertex. COMPARISON STUDYDecemb2005 Serial images demonstrate no acute cortical infarct, hemorrhage ormass. There is a prominent perivascular space on the left s imilar tothe study of September 12, 2006. There is no significant small vesselocclusive disease. There is vascular malformation in the rightfrontal lobe associated with a prominent dural draining vein. This isan incidental finding. Ventricles are symmetric and normal in sizefor age. There is no midline shift or mass effect. There is noabnormal extra- axial fluid collection. IMPRESSION1. No acute c ortical infarct, hemorrhage, or mass.2. Prominent perivascular space on the left unchanged since September 12, 2006.3. Incidental vascular malformation likely venous angioma right frontal lobe vi sualized on the current study likely a result of the contrast enhancement.4. In the setting of persistent or worsening symptoms particularly given patient's history of previous lymphoma further a ssessment can be considered with MRI scan as clinically warranted. Reported By: AIDAN MASON M.D. 81-Nit-203770:30 CBCD Comments: CALL [phone] TO [phone] BASO% 0.8 % (Normal) Range: 0-1 EO% 2.5 % (Normal) Range: 0-5 HCT 34.8 % (Abnormal) Range: 37-47 HGB 12.0 g/dL (Normal) Range: 12.0-16.0 LY% 18.8 % (Abnormal) Range: 19-41 MCH 31.2 pg (Normal) Range: 27.0-32.0 MCHC 34.5 g/dL (Normal) Range: 32-36 MCV 90.4 fL (Normal) Range: 81-99 MONO% 11.9 % (Abnormal) Range: 0-10 MPV 8.3 fL (Normal) Range: 6.5-12.0 NEUT% 66.0 % (Normal) Range: 47-70 PLT 201 K/mm3 (Normal) Range: 150-450 RBC 3.85 {M/mm3} (Abnormal) Range: 4.2-5.4 RDW 25.5 % (Abnormal) Range: 11.6-14.6 SMEAR COMMENT SeeNote (Normal) Comments: Result: 1+ANISOCYTOSIS WBC 3.8 K/mm3 (Abnormal) Range: 4.4-11.0 83-Czb-868979:30 COMP METABOLIC Comments: CALL [phone] TO [phone] A/G 1.5 {RATIO} (Normal) Range: 0.9-2.4 ALB 3.5 g/dL (Normal) Range: 3.4-5.0 ALK P 92 U/L (Normal) Range: 50-136 ALT 54 [iU]/L (Normal) Range: 30-65 AST 47 U/L (Abnormal) Range: 15-37 BUN 4 mg/dL (Abnormal) Range: 7-18 BUN/CRE 4.4 {RATIO} (Abnormal) Range: 10-20 CA 8.8 mg/dL (Normal) Range: 8.5-10.1 CL 105 mmol/L (Normal) Range: 98-107 CO2 23.7 mmol/L (Normal) Range: 22.0-29.0 CREAT,SERUM 0.9 mg/dL (Normal) Range: 0.6-1.0 GAP 13 (Normal) Range: 5-15 GLOB 2.4 g/dL (Normal) Range: 2.3-3.5 GLU 155 mg/dL (Abnormal) Range: 70-110 Comments: Fasting Glucose result greater than or equal to 126 mg/dL suggests DIABETES MELLITUS per A.D.A. criteria. K 3.9 mmol/L (Normal) Range: 3.5-5.1 NA 142 mmol/L (Normal) Range: 136-145 T BILI 0.76 mg/dL (Normal) Range: 0.00-1.00 T PROT 5.9 g/dL (Abnormal) Range: 6.4-8.2 :30 LDH 206 U/L (Abnormal) Comments: CALL [phone] TO [phone] Range: 100-190 :30 URIC 5.7 mg/dL (Normal) Comments: CALL [phone] TO [phone] Range: 2.6-6.0 :30 CULT, DP WOUND Comments: 2 AERO SWABS WERE COLLECTED...BOTH FROM PORT SITE...RIGHTCHEST ANAEROBIC CULT See Note (Normal) Comments: No anaerobic bacteria isolated. GRAM STAIN See Note (Normal) Comments: GRAM STAIN NO CELLS SEEN NO ORGANISMS SEEN RED CELL STROMA WOUND CULTURE No growth aerobically. (Normal) :15 C DIF TOXIN See Note (Normal) Comments: C. DIFF TOXINS A&B NEGATIVE :41 CBCD BASO% 0.3 % (Normal) Range: 0-1 EO% 0.1 % (Normal) Range: 0-5 HCT 34.4 % (Abnormal) Range: 37-47 HGB 11.8 g/dL (Abnormal) Range: 12.0-16.0 LY% 10.9 % (Abnormal) Range: 19-41 MCH 30.8 pg (Normal) Range: 27.0-32.0 MCHC 34.3 g/dL (Normal) Range: 32-36 MCV 89.8 fL (Normal) Range: 81-99 MONO% 5.6 % (Normal) Range: 0-10 MPV 7.8 fL (Normal) Range: 6.5-12.0 NEUT% 83.1 % (Abnormal) Range: 47-70 PLT 248 K/mm3 (Normal) Range: 150-450 RBC 3.84 {M/mm3} (Abnormal) Range: 4.2-5.4 RDW 17.2 % (Abnormal) Range: 11.6-14.6 WBC 5.1 K/mm3 (Normal) Range: 4.4-11.0 :41 CMV AB IgG 6494 < 0.9 {index} (Normal) Range: 0.0-0.8 Comments: Negative <0.9 Equivocal 0.9 - 1.0 Positive >1.0 :41 COMP METABOLIC A/G 1.1 {RATIO} (Normal) Range: 0.9-2.4 ALB 3.4 g/dL (Normal) Range: 3.4-5.0 ALK P 130 U/L (Normal) Range: 50-136 ALT 35 [iU]/L (Normal) Range: 30-65 AST 10 U/L (Abnormal) Range: 15-37 BUN 7 mg/dL (Normal) Range: 7-18 BUN/CRE 10.0 {RATIO} (Normal) Range: 10-20 CA 8.5 mg/dL (Normal) Range: 8.5-10.1 CL 102 mmol/L (Normal) Range: 98-107 CO2 25.2 mmol/L (Normal) Range: 22.0-29.0 CREAT,SERUM 0.7 mg/dL (Normal) Range: 0.6-1.0 GAP 10 (Normal) Range: 5-15 GLOB 3.0 g/dL (Normal) Range: 2.3-3.5 GLU 189 mg/dL (Abnormal) Range: 70-110 Comments: Fasting Glucose result greater than or equal to 126 mg/dL suggests DIABETES MELLITUS per A.D.A. criteria. K 3.7 mmol/L (Normal) Range: 3.5-5.1 NA 137 mmol/L (Normal) Range: 136-145 T BILI 0.34 mg/dL (Normal) Range: 0.00-1.00 T PROT 6.4 g/dL (Normal) Range: 6.4-8.2 :41 FERRITIN 141 ng/mL (Normal) Range: 3-244 :41 HCG QUANT. 1 m[iU]/mL (Normal) Range: 0-6 Non-preg :41 IMMUNO A 1784 37 mg/dL (Abnormal) Range: 70-400 :41 IMMUNO G 1776 378 mg/dL (Abnormal) Range: 700-1600 :41 IMMUNOGL M 1792 33 mg/dL (Abnormal) Range: 40-230 Comments: Performed At: [address] [id number] :41 LDH 211 U/L (Abnormal) Range: 100-190 :41 MG 1.6 mg/dL (Normal) Range: 1.5-2.2 :41 PHOS 3.0 mg/dL (Normal) Range: 2.5-4.9 :41 PRO TIME INR 0.9 (Normal) PROTIME 10.9 s (Abnormal) Range: 11.7-13.3 :41 PTT 30.7 s (Normal) Range: 24.6-36.6 :41 ROUTINE UA BILIRUBIN URINE SeeNote (Normal) Comments: Result: NEGATIVE CLARITY CLEAR (Normal) COLOR YELLOW (Normal) GLUCOSE, UR SeeNote (Normal) Comments: Result: NEGATIVE KETONE UR SeeNote mg/dL (Normal) Comments: Result: NEGATIVE LEUK ESTERASE SeeNote (Normal) Comments: Result: NEGATIVE NITRITE UR SeeNote (Normal) Comments: Result: NEGATIVE OCCULT BLOOD-UR SeeNote (Normal) Comments: Result: NEGATIVE pH UR 5.0 (Normal) Range: 5.0-8.0 PROT DIPSTX SeeNote (Normal) Comments: Result: NEGATIVE SP.GR. DIPSTX 1.020 (Normal) Range: 1.002-1.030 UROBILI 0.2 EU/dl (Normal) Range: 0.2 - 1.0 :41 RPR SeeNote (Normal) Comments: Result: NONREACTIVE :41 URIC 5.0 mg/dL (Normal) Range: 2.6-6.0 :00 IMMUNO P-IMM (Normal) Comments: REPORT SIGNED: MATEO CASTANEDA 01/31/07:25 T3UP Comments: COMMENTS: PT IN CATHLABPrecautions*: NOT APPLICABLE T3 UPTAKE 31 % (Normal) Range: 30-39 T7 (FTI) 2.5 (Normal) Range: 1.4-4.5 :25 T4 THYROXIN 8.1 ug/dL (Normal) Comments: COMMENTS: PT IN CATHLABPrecautions*: NOT APPLICABLE Range: 4.8-13.9 :25 TSH 1.78 {uIU/mL} (Normal) Comments: COMMENTS: PT IN CATHLABPrecautions*: NOT APPLICABLE Range: 0.34-4.82 45-Mzy-[id number]:20 BMP Comments: COMMENTS: BED 13 DR FASTPrecautions*: NOT APPLICABLE BUN 18 mg/dL (Normal) Range: 7-18 BUN/CRE 20.0 {RATIO} (Normal) Range: 10-20 CA 8.9 mg/dL (Normal) Range: 8.5-10.1 CL 102 mmol/L (Normal) Range: 98-107 CO2 26.0 mmol/L (Normal) Range: 22.0-29.0 CREAT,SERUM 0.9 mg/dL (Normal) Range: 0.6-1.0 GAP 8 (Normal) Range: 5-15 GLU 192 mg/dL (Abnormal) Range: 70-110 Comments: Fasting Glucose result greater than or equal to 126 mg/dL suggests DIABETES MELLITUS per A.D.A. criteria. K 3.8 mmol/L (Normal) Range: 3.5-5.1 NA 136 mmol/L (Normal) Range: 136-145 39-Tgl-[id number]:20 CBCD Comments: COMMENTS: BED 13 DR FASTPrecautions*: NOT APPLICABLE BAND 9 % (Abnormal) Range: 0-5 CELLS COUNTED 100 (Normal) HCT 31.1 % (Abnormal) Range: 37-47 HGB 10.5 g/dL (Abnormal) Range: 12.0-16.0 LYMPH 1 % (Abnormal) Range: 19-41 MCH 30.7 pg (Normal) Range: 27.0-32.0 MCHC 33.9 g/dL (Normal) Range: 32-36 MCV 90.7 fL (Normal) Range: 81-99 MPV 7.0 fL (Normal) Range: 6.5-12.0 NRBC,LH FLAGGED 0 % (Normal) Range: 0-5 PLT 448 K/mm3 (Normal) Range: 150-450 PLT EST SeeNote (Normal) Comments: Result: ADEQUATE RBC 3.43 {M/mm3} (Abnormal) Range: 4.2-5.4 RDW 17.4 % (Abnormal) Range: 11.6-14.6 RED CELL MORPH SeeNote {NORMAL} (Normal) Comments: Result: NORM C&C SEGS 90 % (Abnormal) Range: 47-70 WBC 23.9 K/mm3 (Abnormal) Range: 4.4-11.0 73-Ttv-26463:30 AFB C&S [id number] Comments: Precautions*: CHEMO PRECAUTIONSSPECIMEN DESCRIPTION: #2 SAME SOURCE AFB CULT See Note Comments: TESTING PERFORMED AT [facility]. ORIGINAL REPORT ON FILE IN LAB CONTAINS ADDITIONAL TEST SITE INFORMATION. (Normal) CULTURE, ACID FAST NO ACID-FAST BACILLI ISOLATED AFTER 6 WEEKS. AFB SMEAR See Note Comments: [facility] ORIGINAL REPORT ON FILE IN LAB CONTAINS ADDITIONAL TEST SITE INFORMATION. (Normal) ACID FAST BACILLUS SMEAR NO ACID-FAST BACILLI OBSERVED ON SMEAR. 13-D CULT,ALFREDITO See Note Comments: Precautions*: CHEMO PRECAUTIONSSPECIMEN DESCRIPTION: #1 SAME SOURCE ec-2 8482 (Normal) Comments: ` TESTING PERFORMED AT [facility]. ORIGINAL REPORT ON FILE IN LAB CONTAINS ADDITIONAL TEST SITE INFORMATION. 0069 CULTURE, FUNGUS NO YEAST OR MOLD ISOLATED AFTER 4 WEEKS. :30 13-D CYTOLOGY, SeeNote Comments: Result: SEE PATHOLOGY REPORT Specimen submitted to Anatomical Pathology Department for testing. ec-2 BF/CSF (Normal) 0069 :30 89-Xzi-73876:30 FLUID P-FLU (Normal) Comments: OPERATION Not noted HISTORY Lymphoma PRE-OPERATIVE DIAGNOSIS Pain injection lower back TISSUE SUBMITTED CSF for cytology DIAGNOSIS (CYTOLOGY) Cerebrospinal fluid (cytospins and cell block): Negat scott for malignant cells. SJ:luna 09/08/06 CYTOLOGY STUDY The specimen is bloody. CYTOLOGY GROSS Received is 2.5 ml of red cloudy fluid designated CSF. Submitted for cytology study. / SJ:luna 1 11/08/05 TC:5 ADDENDUM Comment: Sections of cell block are negative for AFB and fungal organisms. Matched controls are appropriate. ADDENDUM SIGNED: TONYAMATEO 09/08/06 REPORT SIGNED: TONI YEPEZ 09/08/06:25 CBCD,SMEAR DIFF ANISO 1+ (Normal) BAND 3 % (Normal) Range: 0-5 CELLS COUNTED 100 (Normal) EOS 1 % (Normal) Range: 0-5 HCT 31.6 % (Abnormal) Range: 37-47 HGB 11.0 g/dL (Abnormal) Range: 12.0-16.0 LYMPH 24 % (Normal) Range: 19-41 MCH 31.2 pg (Normal) Range: 27.0-32.0 MCHC 34.7 g/dL (Normal) Range: 32-36 MCV 89.7 fL (Normal) Range: 81-99 MONOCYTE 9 % (Normal) Range: 0-10 PLT 433 K/mm3 (Normal) Range: 150-450 PLT EST SeeNote (Normal) Comments: Result: ADEQUATE POIK 1+ (Normal) RBC 3.52 {M/mm3} (Abnormal) Range: 4.2-5.4 RDW 15.2 % (Abnormal) Range: 11.6-14.6 RED CELL MORPH N CHROM {NORMAL} (Normal) SEGS 63 % (Normal) Range: 47-70 WBC 3.9 K/mm3 (Abnormal) Range: 4.4-11.0 :25 COMP METABOLIC A/G 1.4 {RATIO} (Normal) Range: 0.9-2.4 ALB 3.8 g/dL (Normal) Range: 3.4-5.0 ALK P 101 U/L (Normal) Range: 50-136 ALT 56 [iU]/L (Normal) Range: 30-65 AST 20 U/L (Normal) Range: 15-37 BUN 14 mg/dL (Normal) Range: 7-18 BUN/CRE 15.6 {RATIO} (Normal) Range: 10-20 CA 9.5 mg/dL (Normal) Range: 8.5-10.1 CL 104 mmol/L (Normal) Range: 98-107 CO2 26.1 mmol/L (Normal) Range: 22.0-29.0 CREAT,SERUM 0.9 mg/dL (Normal) Range: 0.6-1.0 GAP 9 (Normal) Range: 5-15 GLOB 2.8 g/dL (Normal) Range: 2.3-3.5 GLU 132 mg/dL (Abnormal) Range: 70-110 Comments: Fasting Glucose result greater than or equal to 126 mg/dL suggests DIABETES MELLITUS per A.D.A. criteria. K 4.1 mmol/L (Normal) Range: 3.5-5.1 NA 139 mmol/L (Normal) Range: 136-145 T BILI 0.44 mg/dL (Normal) Range: 0.00-1.00 T PROT 6.6 g/dL (Normal) Range: 6.4-8.2 :25 COMPLETE UA BACTERIA 2+ {/hpf} (Normal) BILIRUBIN URINE SeeNote (Normal) Comments: Result: NEGATIVE CLARITY SeeNote (Normal) Comments: Result: SL CLOUDY COLOR YELLOW (Normal) GLUCOSE, UR SeeNote (Normal) Comments: Result: NEGATIVE KETONE UR SeeNote mg/dL (Normal) Comments: Result: NEGATIVE LEUK ESTERASE TRACE (Abnormal) MUCUS, URINE 0 SEEN {/hpf} (Normal) NITRITE UR SeeNote (Normal) Comments: Result: NEGATIVE OCCULT BLOOD-UR SeeNote (Normal) Comments: Result: NEGATIVE pH UR 5.0 (Normal) Range: 5.0-8.0 PROT DIPSTX SeeNote (Normal) Comments: Result: NEGATIVE RBC-UA 0 SEEN {/hpf} (Normal) Range: 0-5 SP.GR. DIPSTX >=1.030 (Normal) Range: 1.002-1.030 SQUAM EPI SeeNote {/hpf} (Normal) Range: 5-10 Comments: Result: 5-10 SEEN UROBILI 0.2 EU/dl (Normal) Range: 0.2 - 1.0 WBC SeeNote {/hpf} (Normal) Range: 0-5 Comments: Result: 25-50 SEEN :25 CULTURE, URINE URINE CULTURE See Note {CFU/mL} (Normal) Comments: COLONY COUNT >100,000 ORGANISM 1: MIXED GRAM POSITIVE ORGANISMS :25 MG 1.2 mg/dL (Abnormal) Range: 1.5-2.2 :25 TSH 3.28 {uIU/mL} (Normal) Range: 0.34-4.82 :51 COMP METABOLIC Comments: PLEASE ADD LDH TO BLOOD DRAWN 07/22/06- TEST MISSED A/G 1.2 {RATIO} (Normal) Range: 0.9-2.4 ALB 3.7 g/dL (Normal) Range: 3.4-5.0 ALK P 112 U/L (Normal) Range: 50-136 ALT 45 [iU]/L (Normal) Range: 30-65 AST 28 U/L (Normal) Range: 15-37 BUN 14 mg/dL (Normal) Range: 7-18 BUN/CRE 11.7 {RATIO} (Normal) Range: 10-20 CA 9.5 mg/dL (Normal) Range: 8.5-10.1 CL 100 mmol/L (Normal) Range: 98-107 CO2 24.3 mmol/L (Normal) Range: 22.0-29.0 CREAT,SERUM 1.2 mg/dL (Abnormal) Range: 0.6-1.0 GAP 13 (Normal) Range: 5-15 GLOB 3.0 g/dL (Normal) Range: 2.3-3.5 GLU 109 mg/dL (Normal) Range: 70-110 K 3.8 mmol/L (Normal) Range: 3.5-5.1 NA 137 mmol/L (Normal) Range: 136-145 T BILI 0.66 mg/dL (Normal) Range: 0.00-1.00 T PROT 6.7 g/dL (Normal) Range: 6.4-8.2 :51 LDH 345 U/L (Abnormal) Comments: PLEASE ADD LDH TO BLOOD DRAWN 07/22/06-TEST MISSED Range: 100-190 :51 SPE [id number] A/G RATIO 1.3 (Normal) Range: 0.7-2.0 ALBUMIN 3.7 g/dL (Normal) Range: 3.2-5.6 ALPHA-1 GLOBUL 0.3 g/dL (Normal) Range: 0.1-0.4 ALPHA-2 GLOBUL 0.9 g/dL (Normal) Range: 0.4-1.2 BETA GLOBULIN 1.0 g/dL (Normal) Range: 0.6-1.3 GAMMA GLOBULIN 0.7 g/dL (Normal) Range: 0.5-1.6 GLOBULIN, TOTAL 2.8 g/dL (Normal) Range: 2.0-4.5 INTERPRETATION Comment (Normal) Comments: The SPE pattern appears essentially unremarkable. Evidenceof monoclonal protein is not apparent.Performed At: [facility] [place], [place] [id number] M-SPIKE SeeNote (Normal) Comments: Result: Not Observed NOTE: Comment (Normal) Comments: Protein electrophoresis scan will follow via mail orcourier. PROTEIN,TOTAL 6.5 g/dL (Normal) Range: 6.0-8.5 :49 Blood Glucose , Office (97015) Blood Glucose , Office 84 (Normal) :49 HgA1C , Office (67246) HgA1C , Office 6.6 % (Normal) Range: 4.6 - 7.1 Plan of Care Name Dates Details Instructions B12 deficiency : Eprescribed prescriptions (G8553) Indication: B12 deficiency Cellulitis : Eprescribed prescriptions (G8553) Indication: Cellulitis Elevated liver enzymes : Eprescribed prescriptions (G8553) Indication: Elevated liver enzymes Diarrhea : *Abd Pain Red Flags Indication: Diarrhea Diarrhea : Diarrhea instructions Indication: Diarrhea BMI 34.0-34.9,adult : Eprescribed prescriptions (G8553) Indication: BMI 34.0-34.9,adult BMI 34.0-34.9,adult : Eprescribed prescriptions (G8553) Indication: BMI 34.0-34.9,adult Mixed hyperlipidemia : Diet, Exercise, and Wt loss Indication: Mixed hyperlipidemia Diabetes mellitus type II, controlled : Eprescribed prescriptions (G8553) Indication: Diabetes mellitus type II, controlled Uncontrolled type II diabetes mellitus : Eprescribed prescriptions (G8553) Indication: Uncontrolled type II diabetes mellitus Uncontrolled type II diabetes mellitus : Diet, Exercise, and Wt loss Indication: Uncontrolled type II diabetes mellitus Current nonsmoker : Eprescribed prescriptions (G8553) Indication: Current nonsmoker Mixed hyperlipidemia : *Cholesterol - Medication Side Effects Indication: Mixed hyperlipidemia BMI 36.0-36.9,adult : Eprescribed prescriptions (G8553) Indication: BMI 36.0-36.9,adult Essential hypertension with goal blood pressure less than 130/80 : Eprescribed prescriptions (G8553) Indication: Essential hypertension with goal blood pressure less than 130/80 Mixed hyperlipidemia : Diet, Exercise, and Wt loss Indication: Mixed hyperlipidemia Uncontrolled type II diabetes mellitus : Diet, Exercise, and Wt loss Indication: Uncontrolled type II diabetes mellitus Uncontrolled type II diabetes mellitus : Eprescribed prescriptions (G8553) Indication: Uncontrolled type II diabetes mellitus Uncontrolled type II diabetes mellitus : Diet, Exercise, and Wt loss Indication: Uncontrolled type II diabetes mellitus Uncontrolled type II diabetes mellitus : Eprescribed prescriptions (G8553) Indication: Uncontrolled type II diabetes mellitus UTI (lower urinary tract infection) : Eprescribed prescriptions (G8553) Indication: UTI (lower urinary tract infection) UTI (lower urinary tract infection) : Follow up in 2 weeks Indication: UTI (lower urinary tract infection) UTI (lower urinary tract infection) : Eprescribed prescriptions (G8553) Indication: UTI (lower urinary tract infection) Gallstones : Nausea and Vomiting: bland foods Indication: Gallstones Gallstones : Eprescribed prescriptions (G8553) Indication: Gallstones Uncontrolled type II diabetes mellitus : Diet, Exercise, and Wt loss Indication: Uncontrolled type II diabetes mellitus Mixed hyperlipidemia : Diet, Exercise, and Wt loss Indication: Mixed hyperlipidemia Uncontrolled type II diabetes mellitus : Eprescribed prescriptions (G8553) Indication: Uncontrolled type II diabetes mellitus Essential hypertension with goal blood pressure less than 130/80 : Dietary Approaches to Stop Hypertension (The DASH Diet): blood pressure Indication: Essential hypertension with goal blood pressure less than 130/80 Essential hypertension with goal blood pressure less than 130/80 : Eprescribed prescriptions (G8553) Indication: Essential hypertension with goal blood pressure less than 130/80 Need for prophylactic vaccination and inoculation against influenza : Flu (Influenza) *: flu shot Indication: Need for prophylactic vaccination and inoculation against influenza Essential hypertension with goal blood pressure less than 130/80 : Eprescribed prescriptions (G8553) Indication: Essential hypertension with goal blood pressure less than 130/80 Pain, eye, right : Follow up tomorrow with [facility] Indication: Pain, eye, right Need for prophylactic vaccination and inoculation against influenza : Flu (Influenza) *: flu Indication: Need for prophylactic vaccination and inoculation against influenza Need for prophylactic vaccination and inoculation against influenza : Flu (Influenza) *: flu shot Indication: Need for prophylactic vaccination and inoculation against influenza Constipation : Constipation *: bowel movement Indication: Constipation UTI (lower urinary tract infection) : follow up for recheck urine 1 week after complete antibiotic Indication: UTI (lower urinary tract infection) Dysuria : *UTI treatment Indication: Dysuria Dysuria : Water in diet, brief version Indication: Dysuria Abnormal glucose tolerance test : Hypothyroidism: Brief Version *: hypothyroidism Indication: Abnormal glucose tolerance test Acute bronchitis : *Antibiotic Usage Education - Female Indication: Acute bronchitis Fever : Fever: fever Indication: Fever Abnormal glucose tolerance test : Diet, Exercise, and Wt loss Indication: Abnormal glucose tolerance test Abnormal glucose tolerance test : Diabetes and Illness: diabetes Indication: Abnormal glucose tolerance test Mixed hyperlipidemia : Diet, Exercise, and Wt loss Indication: Mixed hyperlipidemia Abnormal glucose tolerance test : Diet, Exercise, and Wt loss Indication: Abnormal glucose tolerance test Abnormal glucose tolerance test : Diabetes and Illness: diabetes Indication: Abnormal glucose tolerance test Bronchitis : *URI Treatment Indication: Bronchitis Bronchitis : *URI Symptoms Indication: Bronchitis Bronchitis : *Antibiotic Usage Education - Female Indication: Bronchitis Dysuria : follow up for recheck urine 1 week after complete antibiotic Indication: Dysuria Dysuria : Water in diet, brief version Indication: Dysuria Cystitis, acute : Water in diet, brief version Indication: Cystitis, acute Cystitis, acute : *UTI treatment Indication: Cystitis, acute Dysuria : follow up for recheck urine 1 week after complete antibiotic Indication: Dysuria Dysuria : Water in diet, brief version Indication: Dysuria Uncontrolled type II diabetes mellitus : Diet, Exercise, and Wt loss Indication: Uncontrolled type II diabetes mellitus Dysuria : *Antibiotic Usage Education - Female Indication: Dysuria Mixed hyperlipidemia : Diet, Exercise, and Wt loss Indication: Mixed hyperlipidemia Dysuria : *Antibiotic Usage Education - Female Indication: Dysuria Diabetes mellitus type II, controlled : Diet and Exercise Indication: Diabetes mellitus type II, controlled Dysuria : Antibiotic Usage Education - Female Indication: Dysuria Mixed hyperlipidemia : Diet and Exercise Indication: Mixed hyperlipidemia Dysuria : Antibiotic Usage Education - Female Indication: Dysuria Dysuria : Antibiotic Usage Education - Female Indication: Dysuria Depression : Antidepressant Usage Indication: Depression Paroxysmal tachycardia : -follow up after tests Indication: Paroxysmal tachycardia Planned Observations CBC with auto diff ([id number])Indication: Diabetes mellitus type II, controlled On: 1-Nej-422655:03 Request LIPID PANEL (79375)Indication: Diabetes mellitus type II, controlled On: :03 Request METABOLIC PANEL, COMPREHENSIVE (67636)Indication: Diabetes mellitus type II, controlled On: : Request HGB A1C (15545)Indication: Diabetes mellitus type II, controlled On: :02 Request TSH (THYROID STIMULATING HORMONE) (43441)Indication: Acquired hypothyroidism On: : Request Metabolic Panel, Basic (71878)Indication: Hyponatremia On: :00 Request TSH (73151)Indication: Diabetes mellitus type II, controlled On: :48 Request Vitamin B-12 (cyanocobalamin) (16726)Indication: B12 deficiency On: :45 Request CBC WITH MANUAL DIFF ([id number])Indication: B12 deficiency On: :45 Request T3, FREE (TRIDOTHYRONINE) (08718)Indication: Thyroid nodule On: :48 Request Comments: add to labs already drawn T4, FREE (THYROXINE) (12784)Indication: Thyroid nodule On: :47 Request Comments: add to labs already drawn Digoxin (75990)Indication: Cardiomyopathy On: :44 Request LIPID PANEL (90344)Indication: Mixed hyperlipidemia On: :43 Request TSH (57554)Indication: Acquired hypothyroidism On: :43 Request Vitamin D Hydroxy (93001)Indication: Vitamin D deficiency On: :43 Request QCRVJ-YXOZXYDFNVB-UOBCC ([id number])Indication: Fatty liver On: :42 Request VITAMIN B-12 (CYANOCOBALAMIN) (96479)Indication: Fatigue On: :42 Request URINALYSIS, W/ MICRO (56180)Indication: Diabetes mellitus type II, controlled On: 09-Jzh-423107:30 Request MICROALBUMIN: CREATININE RATIO (25233) AND (45887)Indication: Diabetes mellitus type II, controlled On: :29 Request CBC with auto diff (57762)Indication: Diabetes mellitus type II, controlled On: 64-Kob-217808:29 Request METABOLIC PANEL, COMPREHENSIVE (21289)Indication: Diabetes mellitus type II, controlled On: 00-Lsw-463479:29 Request HGB A1C (29782)Indication: Diabetes mellitus type II, controlled On: 20-Bbz-902277:29 Request HEPATIC FUNCTION PANEL (80959)Indication: Elevated liver enzymes On: 0-Hmh-713148:38 Request Comments: do in hospital tuesday when get US Metabolic Panel, Comprehensive (90826)Indication: Epigastric pain On: 69-Afh-201676:54 Request Sed Rate Erythrocyte (51847)Indication: Epigastric pain On: :54 Request CBC, Platelets & Auto Diff (06750)Indication: Epigastric pain On: :54 Request OVA & PARASITE DIR SMEAR (58887)Indication: Diarrhea On: 80-Axq-682743:53 Request OCCULT BLOOD FECES SCREEN (31471)Indication: Diarrhea On: :53 Request LEUKOCYTE COUNT, FECAL (45582)Indication: Diarrhea On: 10-Nxs-963730:53 Request C-DIFFICILE, STOOL (95894)Indication: Diarrhea On: :53 Request GENESIS CULTURE-STOOL (40888)Indication: Diarrhea On: 48-Inv-943092:53 Request Magnesium (74773)Indication: Fatigue On: 02-Ica-928646:42 Request Vitamin B-12 (cyanocobalamin) (74235)Indication: Fatigue On: 75-Wbv-763469:41 Request MICROALBUMIN: CREATININE RATIO (00229) AND (27421)Indication: Diabetes mellitus type II, controlled On: 60-Afm-760323:40 Request LIPID PANEL (16443)Indication: Mixed hyperlipidemia On: 60-Vot-574908:39 Request CBC W/AUTO DIFF WBC (00103)Indication: Fatty liver On: 25-Zhr-605321:30 Request METABOLIC PANEL, COMPREHENSIVE (84266)Indication: Fatty liver On: 72-Fmr-913341:30 Request Vitamin D Hydroxy (30515)Indication: Vitamin D deficiency On: 12-Qmq-138671:30 Request TSH ([id number])Indication: Acquired hypothyroidism On: 90-Jpw-163359:30 Request Digoxin (53274)Indication: Cardiomyopathy On: 78-Yle-801853:29 Request LIPASE (54007)Indication: Epigastric pain On: :28 Request AMYLASE (85958)Indication: Epigastric pain On: :28 Request URINE GENESIS CULTURE-IDENTIFICATN (14190)Indication: Leukocytes in urine On: 26-Bbi-273365:38 Request MICROALBUMIN: CREATININE RATIO (00275) AND ([id number])Indication: Essential hypertension with goal blood pressure less than 130/80 On: :58 Request CBC W/AUTO DIFF WBC (48038)Indication: Essential hypertension with goal blood pressure less than 130/80 On: :58 Request METABOLIC PANEL, COMPREHENSIVE (07752)Indication: Essential hypertension with goal blood pressure less than 130/80 On: :58 Request GTFAR-UZYJFETJOVH-WYFSD ([id number])Indication: Abnormal tumor markers On: :57 Request Vitamin D Hydroxy (90994)Indication: Vitamin D deficiency On: :09 Request LIPOPROTEIN, BLD, BY NMR (80191)Indication: Mixed hyperlipidemia On: :09 Request CBC W/AUTO DIFF WBC (09070)Indication: Diabetes mellitus type II, controlled On: :09 Request METABOLIC PANEL, COMPREHENSIVE (93933)Indication: Diabetes mellitus type II, controlled On: :09 Request Potassium Serum (87128)Indication: Hypopotassemia On: :02 Request BCVDL-[id number] (08892)Indication: Fatty liver On: :57 Request MICROALBUMIN: CREATININE RATIO (23761) AND (23488)Indication: Essential hypertension with goal blood pressure less than 130/80 On: :45 Request CBC W/AUTO DIFF WBC (73744)Indication: Essential hypertension with goal blood pressure less than 130/80 On: :45 Request METABOLIC PANEL, COMPREHENSIVE (42310)Indication: Essential hypertension with goal blood pressure less than 130/80 On: :45 Request Vitamin D Hydroxy (24504)Indication: Vitamin D deficiency On: :45 Request TSH (89758)Indication: Acquired hypothyroidism On: :45 Request LIPID PANEL (19667)Indication: Mixed hyperlipidemia On: :45 Request CBC W/AUTO DIFF WBC (58688)Indication: Diabetes mellitus type II, controlled On: :28 Request LTMDR-FDZCOQIGIXF-GNZLO (50552)Indication: Fatty liver On: : Request METABOLIC PANEL, COMPREHENSIVE (87388)Indication: Mixed hyperlipidemia On: : Request LIPOPROTEIN, BLD, BY NMR (53178)Indication: Mixed hyperlipidemia On: : Request Metabolic Panel, Basic (78241)Indication: Hypopotassemia On: :55 Request Comments: 10 days CBC (AUTO) (99153)Indication: Uncontrolled type II diabetes mellitus On: : Request Vitamin D Hydroxy (79687)Indication: Vitamin D deficiency On: 05-Uet-770950:03 Request MICROALBUMIN: CREATININE RATIO ([id number]) AND ([id number])Indication: Uncontrolled type II diabetes mellitus On: :02 Request METABOLIC PANEL, COMPREHENSIVE (36095)Indication: Essential hypertension with goal blood pressure less than 130/80 On: 87-Ssc-733788:02 Request GMNOH-AYRUICMLVUK-DHOIU (15023)Indication: Fatty liver On: : Request LIPID PANEL (16316)Indication: Mixed hyperlipidemia On: : Request TSH (65409)Indication: Thyroid nodule On: : Request CBC W/AUTO DIFF WBC (94317)Indication: Uncontrolled type II diabetes mellitus On: :47 Request METABOLIC PANEL, COMPREHENSIVE ([id number])Indication: Uncontrolled type II diabetes mellitus On: :47 Request LIPID PANEL (27429)Indication: Mixed hyperlipidemia On: :47 Request Vitamin D Hydroxy (32768)Indication: Vitamin D deficiency On: :47 Request IVYBL-NJFILWJXYRS-JSILT (51004)Indication: Fatty liver On: : Request CBC W/AUTO DIFF WBC (21474)Indication: Uncontrolled type II diabetes mellitus On: :26 Request LIPID PANEL (11214)Indication: Mixed hyperlipidemia On: : Request MICROALBUMIN: CREATININE RATIO (72398) AND (60444)Indication: Uncontrolled type II diabetes mellitus On: : Request TSH ([id number])Indication: Acquired hypothyroidism On: : Request METABOLIC PANEL, COMPREHENSIVE (53744)Indication: Essential hypertension with goal blood pressure less than 130/80 On: : Request Vitamin D Hydroxy (18278)Indication: Vitamin D deficiency On: : Request CALCIFEDIOL (12952)Indication: Vitamin D deficiency On: 43-Uep-965761:44 Request Comments: to be done Jun 2015 after done with ergocalciferol URINE GENESIS CULTURE (NITA COL COUNT) (36387)Indication: UTI (lower urinary tract infection) On: 2-Tty-112921:22 Request LIPID PANEL (71701)Indication: Mixed hyperlipidemia On: 2-Lbb-499666:15 Request CBC W/AUTO DIFF WBC (82597)Indication: Uncontrolled type II diabetes mellitus On: 9-Hjj-965539:14 Request METABOLIC PANEL, COMPREHENSIVE (38666)Indication: Uncontrolled type II diabetes mellitus On: 3-Wrv-529728:14 Request TSH ([id number])Indication: Acquired hypothyroidism On: 2-Iqv-336089:14 Request NUTYI-[id number] ([id number])Indication: Fatty liver On: 2-Eaw-801709:14 Request CBC, Platelets & Auto Diff ([id number])Indication: HX, PERSONAL, MALIGNANCY, LYMPHATIC NEC On: 86-Cfi-67955:07 Request CBC WITH MANUAL DIFF ([id number])Indication: Abnormal glucose tolerance test On: :33 Request MICROALBUMIN: CREATININE RATIO (64982) AND ([id number])Indication: Abnormal glucose tolerance test On: :33 Request LIPID PANEL (54574)Indication: Mixed hyperlipidemia On: :31 Request METABOLIC PANEL, COMPREHENSIVE (14671)Indication: Abnormal glucose tolerance test On: :31 Request URINE GENESIS CULTURE-NITA COL COUNT ([id number])Indication: Dysuria On: 74-Vbg-742847:03 Request RETICULOCYTE COUNT (84087)Indication: Anemia On: :37 Request Iron (61162)Indication: Anemia On: :37 Request Ferritin (10629)Indication: Anemia On: :37 Request CBC (Auto) (11857)Indication: Anemia On: :37 Request CBC, Platelets & Auto Diff (86109)Indication: Fever On: :03 Request Metabolic Panel, Comprehensive (60197)Indication: Fever On: :03 Request HgA1C , Office (66627)Indication: Abnormal glucose tolerance test On: :55 Request CBC WITH MANUAL DIFF (56492)Indication: Abnormal glucose tolerance test On: :53 Request METABOLIC PANEL, COMPREHENSIVE (51326)Indication: Abnormal glucose tolerance test On: :53 Request LIPID PANEL (56179)Indication: Mixed hyperlipidemia On: :53 Request FEDEV-JHLJHOJRWGP-UUXFL ([id number])Indication: Fatty liver On: 00-Lae-345629:53 Request PTT (Activated Partial Thromboplastin Time) (57214)Indication: Fatty liver On: :53 Request PT (Prothrobim Time) ([id number])Indication: Fatty liver On: 00-Daq-716905:53 Request MICROALBUMIN: CREATININE RATIO (93274) AND ([id number])Indication: Abnormal glucose tolerance test On: 95-Szf-702933:49 Request Anti-TPO Antibody (02916)Indication: Acquired hypothyroidism On: :14 Request Comments: 1 month TSH (01579)Indication: Acquired hypothyroidism On: 47-Fmn-141692:13 Request Comments: 1 month T4, FREE (THYROXINE) (64934)Indication: Acquired hypothyroidism On: :13 Request Comments: 1 month T3, FREE (TRIDOTHYRONINE) (34697)Indication: Acquired hypothyroidism On: 03-Plh-674700:13 Request Comments: 1 month CBC WITH MANUAL DIFF ([id number])Indication: Abnormal glucose tolerance test On: :38 Request METABOLIC PANEL, COMPREHENSIVE (11736)Indication: Abnormal glucose tolerance test On: :38 Request LIPID PANEL (16870)Indication: Mixed hyperlipidemia On: :38 Request MICROALBUMIN: CREATININE RATIO (99360) AND ([id number])Indication: Abnormal glucose tolerance test On: 87-Ifs-941455:56 Request CBC WITH MANUAL DIFF ([id number])Indication: Elevated LFTs On: 98-Kmi-144915:56 Request METABOLIC PANEL, COMPREHENSIVE ([id number])Indication: Elevated LFTs On: 92-Dyc-819458:56 Request LIPID PANEL ([id number])Indication: Mixed hyperlipidemia On: 08-Kai-140961:56 Request TSH ([id number])Indication: Acquired hypothyroidism On: :56 Request CBC WITH MANUAL DIFF ([id number])Indication: Essential hypertension with goal blood pressure less than 130/80 On: :34 Request TSH ([id number])Indication: Acquired hypothyroidism On: :34 Request METABOLIC PANEL, COMPREHENSIVE (13367)Indication: Fatty liver On: :33 Request LIPID PANEL (42740)Indication: Mixed hyperlipidemia On: 04-Oct-20119:33 Request MICROALBUMIN: CREATININE RATIO ([id number]) AND (63871)Indication: Uncontrolled type II diabetes mellitus On: :46 Request TSH ([id number])Indication: Acquired hypothyroidism On: :46 Request LIPID PANEL (58606)Indication: Mixed hyperlipidemia On: :45 Request METABOLIC PANEL, COMPREHENSIVE (76862)Indication: Elevated LFTs On: :45 Request HgA1C , Office (02682)Indication: Uncontrolled type II diabetes mellitus On: :28 Request URINE GENESIS CULTURE-NITA COL COUNT (80038)Indication: Cystitis, acute On: :43 Request URINE GENESIS CULTURE-IDENTIFICATN (65784)Indication: Dysuria On: :10 Request CBC WITH MANUAL DIFF ([id number])Indication: Headache On: :56 Request METABOLIC PANEL, COMPREHENSIVE ([id number])Indication: Headache On: :56 Request LIPID PANEL (73478)Indication: Mixed hyperlipidemia On: :56 Request TSH (09688)Indication: Acquired hypothyroidism On: 16-Oja-526631:56 Request METABOLIC PANEL, COMPREHENSIVE (93341)Indication: Uncontrolled type II diabetes mellitus On: :28 Request HEPATIC FUNCTION PANEL (99621)Indication: Mixed hyperlipidemia On: :28 Request LIPID PANEL (54490)Indication: Mixed hyperlipidemia On: :28 Request LIPID PANEL (36573)Indication: Mixed hyperlipidemia On: :39 Request MICROALBUMIN: CREATININE RATIO ([id number]) AND (10230)Indication: Uncontrolled type II diabetes mellitus On: :39 Request CBC WITH MANUAL DIFF ([id number])Indication: Essential hypertension with goal blood pressure less than 130/80 On: :39 Request METABOLIC PANEL, COMPREHENSIVE (66786)Indication: Elevated LFTs On: :39 Request TSH (40581)Indication: Acquired hypothyroidism On: :36 Request TSH (60704)Indication: Thyroid nodule On: 42-Dsc-718922:20 Request METABOLIC PANEL, COMPREHENSIVE (19211)Indication: Elevated LFTs On: :19 Request LIPID PANEL ([id number])Indication: Mixed hyperlipidemia On: :19 Request C-REACTIVE PROTEIN (12493)Indication: Abnormal findings on diagnostic imaging of other specified body structures On: 60-Jjc-966060:02 Request SED RATE ERYTHROCYTE (73207)Indication: Abnormal findings on diagnostic imaging of other specified body structures On: 06-Vfj-799892: Request LDH (LD) (LACTATE DEHYDROGENASE) ([id number])Indication: Abnormal findings on diagnostic imaging of other specified body structures On: 47-Pvq-669819: Request Urine Protein Electrophoresis (UPEP) (98502)Indication: Abnormal findings on diagnostic imaging of other specified body structures On: 05-Pjz-865500: Request Serum Protein Electrophoresis (SPEP) (70532)Indication: Abnormal findings on diagnostic imaging of other specified body structures On: 13-Enc-736014: Request METABOLIC PANEL, COMPREHENSIVE (70402)Indication: Diabetes mellitus type II, controlled On: :19 Request LIPID PANEL (96354)Indication: Mixed hyperlipidemia On: :19 Request URINE GENESIS CULTURE-NITA COL COUNT (48888)Indication: Dysuria On: 08-Hwf-916215:58 Request HEPATIC FUNCTION PANEL (98086)Indication: Elevated LFTs On: :18 Request LIPID PANEL (16681)Indication: Mixed hyperlipidemia On: 14-Wsw-255898:17 Request MICROALBUMIN: CREATININE RATIO ([id number]) AND ([id number])Indication: Uncontrolled type II diabetes mellitus On: :47 Request CBC WITH MANUAL DIFF ([id number])Indication: Uncontrolled type II diabetes mellitus On: 5-Qmj-609198:47 Request METABOLIC PANEL, COMPREHENSIVE ([id number])Indication: Uncontrolled type II diabetes mellitus On: :47 Request HEPATIC FUNCTION PANEL (81294)Indication: Elevated LFTs On: 3-Azk-960705:45 Request LIPID PANEL ([id number])Indication: Mixed hyperlipidemia On: 5-Zaw-168994:44 Request HEPATIC FUNCTION PANEL (14739)Indication: Fatty liver On: 9-Yme-031181:30 Request LIPID PANEL (24284)Indication: Mixed hyperlipidemia On: 6-Jqz-552196:30 Request URINE GENESIS CULTURE (NITA COL COUNT) (55014)Indication: Low back pain potentially associated with radiculopathy On: 70-Brt-346287:03 Request MICROALBUMIN: CREATININE RATIO ([id number]) AND (71430)Indication: Dysuria On: 50-Rri-407126:05 Request LIPID PANEL (86953)Indication: Dysuria On: 58-Tap-977979:05 Request TSH (49607)Indication: Dysuria On: 69-Gok-637307:05 Request METABOLIC PANEL, COMPREHENSIVE ([id number])Indication: Dysuria On: 05-Hjs-468342:04 Request CBC WITH MANUAL DIFF ([id number])Indication: Dysuria On: 12-Gfr-370024:04 Request URINE GENESIS CULTURE-NITA COL COUNT ([id number])Indication: Dysuria On: 87-Gpi-005916:45 Request URINE GENESIS CULTURE (NITA COL COUNT) ([id number])Indication: Dysuria On: 04-Iuo-103726:17 Request METABOLIC PANEL, COMPREHENSIVE ([id number])Indication: Fatty liver On: 03-Rge-68288:58 Request Magnesium ([id number])Indication: Palpitations On: :51 Request TSH ([id number])Indication: Palpitations On: 35-Xnj-07399:51 Request METABOLIC PANEL, COMPREHENSIVE ([id number])Indication: Palpitations On: :51 Request CBC WITH MANUAL DIFF ([id number])Indication: Palpitations On: 53-Fdm-33611:51 Request GGT (Gamma Glutamyl Transferase) ([id number])Indication: Elevated LFTs On: 12-Ezw-670215:16 Request HEPATIC FUNCTION PANEL ([id number])Indication: Elevated LFTs On: 57-Uua-739271:16 Request VITAMIN B-12 (CYANOCOBALAMIN) ([id number])Indication: Fatigue On: :23 Request MICROALBUMIN URINE QUANT ([id number])Indication: Diabetes mellitus type II, controlled On: 04-Zvf-82285:22 Request TSH ([id number])Indication: Fatigue On: 45-Etl-64929:22 Request CBC WITH MANUAL DIFF ([id number])Indication: Diabetes mellitus type II, controlled On: 64-Gow-56559:22 Request METABOLIC PANEL, COMPREHENSIVE ([id number])Indication: Diabetes mellitus type II, controlled On: 71-Ovv-64867:22 Request LIPID PANEL ([id number])Indication: Mixed hyperlipidemia On: 33-Nch-74971:22 Request HEPATIC FUNCTION PANEL ([id number])Indication: Mixed hyperlipidemia On: 94-Lxc-859212:48 Request LIPID PANEL ([id number])Indication: Mixed hyperlipidemia On: 12-Xol-769877:48 Request Comments: in 3 mos Planned Encounters Medical; [facility] 1 Month FU - On: 30-Aug-2018 11:00 [facility] Fast DO, Sangeetha A Fast DO, Sangeetha A Planned Procedures Flu Vaccine (Quadrivalent) [id number]: On: 21-Jul-2018 Intent Fast DO, Sangeetha A Fast DO, Sangeetha A SCREENING DIGITAL TOMOSYNTHESIS OF On: 21-Jul-2018 Intent BREAST ([id number])By: Fast DO, Sangeetha A Fast DO, Sangeetha A B 12 Injection, 1000 mcg ([id number])By: On: 31-May-2018 Intent Fast DO, Sangeetha A Fast DO, Sangeetha A Comments: Lot#[id number] EXP:[id number] given:left deltoid Given By: clarita albright ABN signed CT - Abdomen (IV Contrast Needed)By: On: 31-May-2018 Intent Fast DO, Sangeetha A Fast DO, Sangeetha A Doppler Ultrasound OtherBy: Fast DO, On: 19-May-2018 Intent Sangeetha A Fast DO, Sangeetha A Comments: left arm ULTRASOUND OF LIVER ([id number])By: On: 24-Feb-2018 Intent Jennifer Rios MD PFT - CompleteBy: Fast DO, Sangeetha A On: 21-Oct-2017 Intent Fast DO, Sangeetha A Comments: at [facility] SCREENING DIGITAL TOMOSYNTHESIS OF On: 21-Oct-2017 Intent BREAST ([id number])By: Fast DO, Sangeetha A Comments: end of oct Fast DO, Sangeetha A EsophagramBy: Fast DO, Sangeetha A Fast On: 21-Oct-2017 Intent DO, Sangeetha A Comments: with 12 mm tablet ELECTROCARDIOGRAM, COMPLETE (ECG) On: 21-Oct-2017 Intent ([id number])By: Fast DO, Sangeetha A Fast DO, Sangeetha A Flu Vaccine (Quadrivalent) [id number]: On: 07-Jun-2017 Intent Fast DO, Sangeetha A Fast DO, Sangeetha A Comments: InfluenzaLot #[id number]/18/18Site-L dltd, IMDose prefilled syringeVIS and ABN signedgiven by:asNATALEE CT - Abdomen (IV Contrast Needed)By: On: 07-Jun-2017 Intent Fast DO, Sangeetha A Fast DO, Sangeetha A Ultrasound - LiverBy: Fast DO, Sangeetha On: 22-Nov-2016 Intent A Fast DO, Sangeetha A Comments: november Ultrasound - ThyroidBy: Fast DO, On: 22-Nov-2016 Intent Sangeetha A Fast DO, Sangeetha A Comments: november PFT - CompleteBy: Fast DO, Sangeetha A On: 16-Aug-2016 Intent Fast DO, Sangeetha A DEXA SCAN AXIAL SKELETON ([id number])By: On: 16-Aug-2016 Intent Fast DO, Sangeetha A Fast DO, Sangeetha A MAMMOGRAM, SCREENING, BOTH BREAST On: 16-Aug-2016 Intent ([id number])By: Fast DO, Sangeetha A Fast DO, Sangeetha A ELECTROCARDIOGRAM, COMPLETE (ECG) On: 16-Aug-2016 Intent ([id number])By: Fast DO, Sangeetha A Fast DO, Sangeetha A Flu Vaccine (Quadrivalent) 80154Dm: On: 16-Aug-2016 Intent Fast DO, Sangeetha A Fast DO, Sangeetha A Comments: FLUlot: [id number]/09site:Lt deltoidroute:IMdose:.5mlHEIDI MCLEOD ADMINISTRATION OF INFLUENZA VIRUS On: 16-Aug-2016 Intent VACCINE ([id number])By: Fast DO, Sangeetha A Fast DO, Sangeetha A Ultrasound - ThyroidBy: Fast DO, On: 10-Nov-2015 Intent Sangeetha A Fast DO, Sangeetha A Ultrasound - LiverBy: Fast DO, Sangeetha On: 10-Nov-2015 Intent A Fast DO, Sangeetha A Flu Vaccine (Quadrivalent) 49188Zc: On: 08-Aug-2015 Intent Fast DO, Sangeetha A Fast DO, Sangeetha A Comments: Lot #[id number]-L dltd, IMDose prefilled syringegiven by:SIMONE Jasso and ABN signed MAMMOGRAM, SCREENING, BOTH BREAST On: 08-Aug-2015 Intent ([id number])By: Fast DO, Sangeetha A Fast DO, Sangeetha A Ultrasound - ThyroidBy: Fast DO, On: 08-Aug-2015 Intent Sangeetha A Fast DO, Sangeetha A Ultrasound - LiverBy: Fast DO, Sangeetha On: 08-Aug-2015 Intent A Fast DO, Sangeetha A ADMINISTRATION OF PNEUMOCOCCAL On: 01-Nov-2014 Intent VACCINE ([id number])By: Fast DO, Sangeetha A Fast DO, Sangeetha A PNEUM VAC ADLT/IMUMNOSPR, SBC/INTRM On: 01-Nov-2014 Intent ([id number])By: Fast DO, Sangeetha A Fast DO, Comments: Lot:[id number]:02/29/16Dose:0.5mgRoute:imSite:l armGiven By:BATSHEVA signed Sangeetha A Ultrasound - LiverBy: Fast DO, Sangeetha On: 05-Jul-2014 Intent A Fast DO, Sangeetha A BILATERAL MAMMOGRAMS ([id number])By: Fast On: 05-Jul-2014 Intent DO, Sangeetha A Fast DO, Sangeetha A Ultrasound - ThyroidBy: Fast DO, On: 05-Jul-2014 Intent Sangeetha A Fast DO, Sangeetha A ADMINISTRATION OF INFLUENZA VIRUS On: 05-Jul-2014 Intent VACCINE (G0008)By: Fast DO, Sangeetha A Comments: Influenzalot:[id number]:03/25/2015dose:0.5mLRoute: IMlocation:R armgiven by:marika Fast DO, Sangeetha A FLU VAC, SPLIT, >3 YEARS, INTRAMUSC On: 05-Jul-2014 Intent ([id number])By: Arpan Irvin DOa A Fast DO, Sangeetha A INFUSION, NORMAL SALINE SOLUTION , On: 15-Apr-2014 Intent 250 CC ([id number])By: Angelina Winn CNP Rocephon Injection, 1 Gm (J0696)By: On: 15-Apr-2014 Intent Angelina Winn CNP Comments: Rocephin 1gmLot #[id number]. [id number] in R hand x 1 stick with a 22 gauge butterfly. Patient tolerated well with no c/o voiced. No infiltrate noted. Discontinued following infusion with no ecchymosis noted. JQuestel. Radiology - Cervical SpineBy: Fast On: 06-Feb-2014 Intent DO, Sangeetha A Fast DO, Sangeetha A Eprescribed prescriptions ([id number])By: On: 06-Feb-2014 Intent Fast DO, Sangeetha A Fast DO, Sangeetha A CT - Brain/Head (IV Contrast On: 08-Jan-2014 Intent Needed)By: Tavon DAVIS Sangeetha A Fast DO, Sangeetha A ADMINISTRATION OF INFLUENZA VIRUS On: 27-Jul-2013 Intent VACCINE (G0008)By: Tavon DAVIS, Sangeetha A Fast DO, Sangeetha A FLU VAC, SPLIT, >3 YEARS, INTRAMUSC On: 27-Jul-2013 Intent ([id number])By: Tavon DAVIS, Sangeetha A Fast DO, Sangeetha A Eprescribed prescriptions ([id number])By: On: 04-Jun-2013 Intent Delisa Melendez LPN SPECIMEN HANDLING/TRANSPORT On: 04-Jun-2013 Intent ([id number])By: Delisa Melendez LPN INFUSION, NORMAL SALINE SOLUTION , On: 15-Feb-2013 Intent 1000 CC (Special Coverage Comments: 500 cc Instructions Apply. See MCM: 2049) ([id number])By: Jennifer Rios MD HYDRATION IV INFUSION, INIT On: 15-Feb-2013 Intent ([id number])By: Jennifer Rios MD Ultrasound - ThyroidBy: Fast DO, On: 19-Jan-2013 Intent Sangeetha A Fast DO, Sangeetha A MAMMOGRAM, SCREENING, BOTH BREASTS On: 19-Jan-2013 Intent ([id number])By: Fast DO, Sangeetha A Fast DO, Comments: due in january Sangeetha A Eprescribed prescriptions ([id number])By: On: 19-Jan-2013 Intent Isabella Grigsby Pulse Oximetry ([id number])By: Seb, On: 29-Sep-2012 Intent Isabella Comments: 98% Eprescribed prescriptions ([id number])By: On: 29-Sep-2012 Intent Isabella Grigsby Ultrasound - ThyroidBy: Fast DO, On: 15-Sep-2012 Intent Sangeetha A Fast DO, Sangeetha A Eprescribed prescriptions ([id number])By: On: 15-Sep-2012 Intent Isabella Grigsby Eprescribed prescriptions ([id number])By: On: 12-May-2012 Intent Fast DO, Sangeetha A Fast DO, Sangeetha A Eprescribed prescriptions ([id number])By: On: 12-May-2012 Intent Isabella Grigsby MAMMOGRAM, SCREENING, BOTH BREASTS On: 24-Jan-2012 Intent ([id number])By: Fast DO, Sangeetha A Fast DO, Sangeetha A TDAP VACCINE >7 IM ([id number])By: Fast On: 04-Oct-2011 Intent DO, Sangeetha A Fast DO, Sangeetha A Comments: Lot:[id number]:08/12/13Amt:prefilledRoute:IMSite:right deltGiven By: NATALEE Spence Aerosol Treatment ([id number])By: Blanca On: 26-Aug-2011 Intent Jennifer KING Pulse Oximetry (93153)By: Blanca On: 26-Aug-2011 Intent Jennifer KING SPECIMEN HANDLING/TRANSPORT On: 23-Jul-2011 Intent ([id number])By: Delisa Melendez LPN VAC, SPLIT, >3 YEARS, INTRAMUSC On: 05-Jul-2011 Intent ([id number])By: Isabella Grigsby Comments: Lot #[id number]/20/12Site-left deltoidgiven by: Lisa Bello LPN Ultrasound - ThyroidBy: Fast DO, On: 05-Jul-2011 Intent Sangeetha A Fast DO, Sangeetha A MAMMOGRAM, SCREENING, BOTH BREASTS On: 05-Jul-2011 Intent ([id number])By: Fast DO, Sangeetha A Fast DO, Sangeetha A ADMINISTRATION OF INFLUENZA VIRUS On: 05-Jul-2011 Intent VACCINE (G0008)By: Isabella Grigsbycribed prescriptions ([id number])By: On: 04-Jun-[address] DO CT - Brain/HeadBy: Fast DO, Sangeetha A On: 07-Oct-2010 Intent Fast DO, Sangeetha A Comments: with and without contrast MAMMOGRAM, SCREENING, BOTH BREASTS On: 26-Jun-2010 Intent ([id number])By: Fast DO, Sangeetha A Fast DO, Sangeetha A ADMINISTRATION OF INFLUENZA VIRUS On: 26-Jun-2010 Intent VACCINE (G0008)By: Fast DO, Sangeetha A Fast DO, Sangeetha A FLU VAC, SPLIT, >3 YEARS, INTRAMUSC On: 26-Jun-2010 Intent ([id number])By: Fast DO, Sangeetha A Fast DO, Comments: Lot:[id number] 4PExp:12/2010Dose:0.5mlRoute:IMSite:Left DeltoidGiven by: HEIDI Alberto A Ultrasound - ThyroidBy: Fast DO, On: 07-Jan-2010 Intent Sangeetha A Fast DO, Sangeetha A CT - Spine/CervicalBy: Fast DO, On: 15-Dec-2009 Intent Sangeetha A Fast DO, Sangeetha A Comments: 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 -- need to rule out Pulse Oximetry ([id number])By: Fast DO, On: 09-Jul-2009 Intent Sangeetha A Fast DO, Sangeetha A Spirometry ([id number])By: Fast DO, On: 10-Jul-2009 Intent Sangeetha A Fast DO, Sangeetha A Comments: good effort and curve- mild restriciton Radiology - Chest- PA and LatBy: On: 09-Jul-2009 Intent Fast DO, Sangeetha A Fast DO, Sangeetha A Pulse Oximetry ([id number])By: Fast DO, On: 10-Jul-2009 Intent Sangeetha A Fast DO, Sangeetha A Comments: 98 FLU VAC, SPLIT, >3 YEARS, INTRAMUSC On: 09-Jul-2009 Intent ([id number])By: Isabella Grigsby Comments: Lot #[id number]-right deltoidDose0.5mlgiven by Juventino Nye LPN IMMUNIZ ADMNIN, 1 VAC, SNGL/COMBO On: 09-Jul-2009 Intent ([id number])By: Isabella Grigsby EKG ([id number])By: Fast DO, Sangeetha A On: 10-Oct-2008 Intent Fast DO, Sangeetha A Comments: ekg showed sinus tachy,, left axis, no acute st/t wave changes poor r wave progression pvc Echo CompleteBy: Fast DO, Sangeetha A On: 10-Oct-2008 Intent Fast DO, Sangeetha A Nuclear Stress Test/Stress On: 10-Oct-2008 Intent SPECT/AdenosineBy: Fast DO, Sangeetha A Fast DO, Sangeetha A MRI - Lumbar SpineBy: Fast DO, Sangeetha On: 10-Oct-2008 Intent A Fast DO, Sangeetha A Comments: 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- please do archie and also do in open mri- IMMUNIZ ADMNIN, 1 VAC, SNGL/COMBO On: 10-Jul-2008 Intent ([id number])By: Fast DO, Sangeetha A Fast DO, Sangeetha A FLU VAC, SPLIT, >3 YEARS, INTRAMUSC On: 10-Jul-2008 Intent ([id number])By: Fast DO, Sangeetha A Fast DO, Comments: injection given in left deltoid, pt tolerated welllot # [id number] Sangeetha A Holter Monitor 24 hrsBy: Fast DO, On: 10-Jul-2008 Intent Sangeetha A Fast DO, Sangeetha A EKG ([id number])By: Marlene Reddy On: 10-Jul-2008 Intent Comments: ekg showed normal sinus rhythym, normal axis, no acute st/t wave changes sinus tach - no acute changes Ultrasound - ThyroidBy: Fast DO, On: 20-Feb-2008 Intent Sangeetha A Fast DO, Sangeetha A CT - Brain/Head (IV Contrast On: 19-Jan-2008 Intent Needed)By: Fast DO, Sangeetha A Fast DO, Sangeetha A Nuclear Stress TestBy: Fast DO, On: 06-Jun-2006 Intent Sangeetha A Fast DO, Sangeetha A Planned Medications INFUSION, NORMAL SALINE SOLUTION , 1000 CC Ordered: 15-Feb-2013 Pending Jennifer Rios MD INFUSION, NORMAL SALINE SOLUTION , 250 CC Ordered: 15-Apr-2014 Pending Angelina Winn CNP INJECTION, CEFTRIAXONE SODIUM, PER 250 MG Ordered: 15-Apr-2014 Pending Angelina Winn CNP Vitamin B-12 1000 MCG/ML Injection Solution Ordered: 31-May-2018 Pending Fast DO, Sangeetha A Fast DO, Sangeetha A Instructions Name Dates Details B12 deficiency : How to access health information online Indication: B12 deficiency B12 deficiency : How to access health information online - Detail Indication: B12 deficiency B12 deficiency : Patient Instructions Indication: B12 deficiency Cellulitis : How to access health information online Indication: Cellulitis Cellulitis : How to access health information online - Detail Indication: Cellulitis Cellulitis : Patient Instructions Indication: Cellulitis Elevated liver enzymes : How to access health information online Indication: Elevated liver enzymes Elevated liver enzymes : How to access health information online - Detail Indication: Elevated liver enzymes Elevated liver enzymes : Patient Instructions Indication: Elevated liver enzymes BMI 34.0-34.9,adult : How to access health information online Indication: BMI 34.0-34.9,adult BMI 34.0-34.9,adult : How to access health information online - Detail Indication: BMI 34.0-34.9,adult BMI 34.0-34.9,adult : Patient Instructions Indication: BMI 34.0-34.9,adult BMI 34.0-34.9,adult : How to access health information online Indication: BMI 34.0-34.9,adult BMI 34.0-34.9,adult : How to access health information online - Detail Indication: BMI 34.0-34.9,adult BMI 34.0-34.9,adult : Patient Instructions Indication: BMI 34.0-34.9,adult Diabetes mellitus type II, controlled : How to access health information online Indication: Diabetes mellitus type II, controlled Diabetes mellitus type II, controlled : How to access health information online - Detail Indication: Diabetes mellitus type II, controlled Diabetes mellitus type II, controlled : Patient Instructions Indication: Diabetes mellitus type II, controlled Uncontrolled type II diabetes mellitus : How to access health information online Indication: Uncontrolled type II diabetes mellitus Uncontrolled type II diabetes mellitus : How to access health information online - Detail Indication: Uncontrolled type II diabetes mellitus Uncontrolled type II diabetes mellitus : Patient Instructions Indication: Uncontrolled type II diabetes mellitus Current nonsmoker : How to access health information online Indication: Current nonsmoker Current nonsmoker : How to access health information online - Detail Indication: Current nonsmoker Current nonsmoker : Patient Instructions Indication: Current nonsmoker BMI 36.0-36.9,adult : How to access health information online Indication: BMI 36.0-36.9,adult BMI 36.0-36.9,adult : How to access health information online - Detail Indication: BMI 36.0-36.9,adult BMI 36.0-36.9,adult : Patient Instructions Indication: BMI 36.0-36.9,adult Essential hypertension with goal blood pressure less than 130/80 : How to access health information online Indication: Essential hypertension with goal blood pressure less than 130/80 Essential hypertension with goal blood pressure less than 130/80 : How to access health information online - Detail Indication: Essential hypertension with goal blood pressure less than 130/80 Essential hypertension with goal blood pressure less than 130/80 : Patient Instructions Indication: Essential hypertension with goal blood pressure less than 130/80 Uncontrolled type II diabetes mellitus : How to access health information online Indication: Uncontrolled type II diabetes mellitus Uncontrolled type II diabetes mellitus : How to access health information online - Detail Indication: Uncontrolled type II diabetes mellitus Uncontrolled type II diabetes mellitus : Patient Instructions Indication: Uncontrolled type II diabetes mellitus Uncontrolled type II diabetes mellitus : How to access health information online Indication: Uncontrolled type II diabetes mellitus Uncontrolled type II diabetes mellitus : How to access health information online - Detail Indication: Uncontrolled type II diabetes mellitus Uncontrolled type II diabetes mellitus : Patient Instructions Indication: Uncontrolled type II diabetes mellitus Uncontrolled type II diabetes mellitus : How to access health information online Indication: Uncontrolled type II diabetes mellitus Uncontrolled type II diabetes mellitus : How to access health information online - Detail Indication: Uncontrolled type II diabetes mellitus Uncontrolled type II diabetes mellitus : Patient Instructions Indication: Uncontrolled type II diabetes mellitus UTI (lower urinary tract infection) : How to access health information online Indication: UTI (lower urinary tract infection) UTI (lower urinary tract infection) : How to access health information online - Detail Indication: UTI (lower urinary tract infection) UTI (lower urinary tract infection) : Patient Instructions Indication: UTI (lower urinary tract infection) UTI (lower urinary tract infection) : How to access health information online Indication: UTI (lower urinary tract infection) UTI (lower urinary tract infection) : How to access health information online - Detail Indication: UTI (lower urinary tract infection) UTI (lower urinary tract infection) : Patient Instructions Indication: UTI (lower urinary tract infection) Gallstones : How to access health information online Indication: Gallstones Gallstones : How to access health information online - Detail Indication: Gallstones Gallstones : Patient Instructions Indication: Gallstones Uncontrolled type II diabetes mellitus : Patient Instructions Indication: Uncontrolled type II diabetes mellitus Essential hypertension with goal blood pressure less than 130/80 : How to access health information online Indication: Essential hypertension with goal blood pressure less than 130/80 Essential hypertension with goal blood pressure less than 130/80 : How to access health information online - Detail Indication: Essential hypertension with goal blood pressure less than 130/80 Essential hypertension with goal blood pressure less than 130/80 : Patient Instructions Indication: Essential hypertension with goal blood pressure less than 130/80 Essential hypertension with goal blood pressure less than 130/80 : How to access health information online Indication: Essential hypertension with goal blood pressure less than 130/80 Essential hypertension with goal blood pressure less than 130/80 : How to access health information online - Detail Indication: Essential hypertension with goal blood pressure less than 130/80 Essential hypertension with goal blood pressure less than 130/80 : Patient Instructions Indication: Essential hypertension with goal blood pressure less than 130/80 HX, PERSONAL, MALIGNANCY, LYMPHATIC NEC : Patient Instructions Indication: HX, PERSONAL, MALIGNANCY, LYMPHATIC NEC Headache : Patient Instructions Indication: Headache Abnormal glucose tolerance test : Patient Instructions Indication: Abnormal glucose tolerance test Abnormal glucose tolerance test : Patient Instructions Indication: Abnormal glucose tolerance test Constipation : Patient Instructions Indication: Constipation Abnormal glucose tolerance test : Patient Instructions Indication: Abnormal glucose tolerance test Abnormal glucose tolerance test : Patient Instructions Indication: Abnormal glucose tolerance test Fever : Patient Instructions Indication: Fever BMI 45.0-49.9, adult : obesity counseling Indication: BMI 45.0-49.9, adult Abnormal glucose tolerance test : Patient Instructions Indication: Abnormal glucose tolerance test Encounters Office Visit On: 21-Jul-2018 9:17 Encounter Reason: Follow up tests - Diagnostic tests include chest X-ray (Dr. Oscar Todd with cardiology - was performed because she was holding too much fluid around her heart) and other (blood work). Date: (07/14 End: 23-Jul-2018 22:41 /24 blood work). Note for Discuss procedure results: weight stable and was getting more sob so saw aofri and btnp was elevated so they are messing with her diuretics- did fine with cutting back the ho ldol just mild- she had first real counseling session yesterday and she liked her and she referred her to psychiatrist - awaiting for appt- she not leg swelling and her cellulitis better- she only do le vothryoxine 75 daily no extra tabs so will add extra tab on sunEncounter Diagnosis: BMI 31.0-31.9,adult, Nonsmoker, B12 deficiency, Acquired hypothyroidism, Cellulitis, Depression, Hyponatremia, Diabetes mellitus type II, controlled, Encounter for screening mammogram for breast cancer (Renamed from Encounter for screening mammogram for malignant neoplasm of breast), Need for prophylactic vaccination and inoculation against influenza (Renamed from Need for immunizati on against influenza) [facility] Office Visit On: 31-May-2018 9:00 Encounter Reason: Follow up tests - Date: (05/25 blood work). Note for Discuss procedure results: she has appt with counseling center end of month she very hungry all the time - head is very clear but now off pain meds End: 01-Jun-2018 21:48 having back issues again - her mom not want her take pain meds again so using tylenol and will go back to [place] if need be for shot-sugar fine-n foot better way less sore- chol good- she is feeling be tter and thinking clearer and overall doing better- sleepingok no hallucintations mentally clear - mood improvedEncounter Diagnosis: Nonsmoker, BMI 31.0- 31.9,adult, Cellulitis, Low back pain potentially associated with radiculopathy, DVT of upper extremity (deep vein thrombosis), Elevated liver enzymes, Abnormal tumor markers, B12 deficiency, Fatty liver (571.8), Mixed hyperlipidemia, Vitamin D deficiency, Acquired hypothyroidism, Diabetes mellitus type II, controlled [facility] Lab Order On: 26-May-2018 11:35 Encounter Diagnosis: Thyroid nodule (241.0), UTI (lower urinary tract infection) (599.0) End: 26-May-2018 11:50 [facility] Office Visit On: 19-May-2018 9:44 Encounter Reason: Transition into care - The patient is transitioning into care from a hospital., [ADDITIONAL REASON] Follow up hospital - Reason for ER visit: note: (metabolic acidosis - hit head). End: 21-May-2018 22:08 The patient does not feel well (still really tired and psychologially struggling with aceepting having no memory of the last 3 mos. ??Tingling in my legs.). Note for Follow up hospital: so mom alyssa deng and apparently prior to her hospitalization she was told by a physicial she needed to lose more weight which really upset her and her best ??friend passed from cancer which really put her in a downwar d spiral- she quit eating and drinking for weeks according to mom--and then get metabolic acidosis- from dehydration- [place] [facility] [place] and metabolic acidosis- she was taken off metformin and lisinopril andthen went to [place] for couple weeks then had multiple falls sent back to hospital and transferred to [facility] there for few weeks then to [facility] had lots of pt- and doing better home last tuesday- eating and drinking now - getting around with walker- no falls- no diarrhea and no abd pain- - had left arm dvt had subdural hematoma- had cardiogenic shock - reviewed discharge summaries and med labs- she not getting headaches and balance improved- no falls at ??home- i spent 1 hour with patient and mother in visit reviewing all records - reviewing med list and testing Encounter Diagnosis: BMI 30.0-30.9,adult, Nonsmoker, Depression, Diabetes mellitus type II, controlled, Elevated liver enzymes, Acquired hypothyroidism, Mixed hyperlipidemia, Vitamin D deficiency, Fatty liver (571.8), Cardiomyopathy (425.4), Fatigue, Low back pain potentially associated with radiculopathy, DVT of upper extremity (deep vein thrombosis), Cellulitis [facility] Office Visit On: 24-Feb-2018 8:48 Encounter Reason: Follow up tests - Date: (02.23.18).Encounter Diagnosis: Elevated liver enzymes, Epigastric pain, Diarrhea End: 24-Feb-2018 10:39 [facility] Office Visit On: 23-Feb-2018 13:32 Encounter Diagnosis: Epigastric pain, Diarrhea, Cardiomyopathy (425.4) End: 23-Feb-2018 14:28 [facility] Visit On: 17-Jan-2018 11:00 Encounter Reason: Follow up tests - Date: (10/2017 blood flow screening and blood work). Note for Discuss procedure results: she has seen psychologist and she thought doing ok - but sees psychiatrist in few weeks family End: 19-Jan-2018 22:12 worried she sleeping alot and dozes off and they feel mood depressed and stomach hurts confused- she hasnt done testing as she got overwhelmed with her bills- has had cpcp rechecked last year and weari ng every night- stomach hurts in epigastrium- radiates into back and around- no blood in stool - spicey foods make hurt worse- taking amitryptyline at bedtime lares better- they have her taking gabapentin and clonazepam at bedtime still hard time getting to sleep but also napping in day- she not doing any daily exercise discussed getting blood flow moving to brainEncounter Diagnosis: Nonsmoker, BMI 34.0-34.9,adult, Diabetes mellitus type II, controlled, Fatty liver (571.8), Vitamin D deficiency, Gastritis, Epigastric pain, Acquired hypothyroidism, Mixed hyperlipidemia, Cardiomyopathy (425.4), Fatigue, Depression [facility] Phone Encounter On: 07-Nov-2017 14:37 Encounter Diagnosis: Leukocytes in urine End: 08-Nov-2017 8:28 [facility] Office Visit On: 21-Oct-2017 7:35 Encounter Reason: Follow up for chronic medical issues - The patient feels well with minor complaints, has decreased energy level and is sleeping poorly (broken hours and not waking rested). Patient has been compliant wi End: 13-Nov-2017 14:38 th instructions. Current medication use: no side effects and compliant with dosing regimen. Patient sleeps 8 (broken) hours per night. Nutrition: balanced diet. The medical issues the patient is followi ng up for include All identified problems below, blood sugar issues and high blood pressure. fasting blood sugars : (was lower before Manjit and 139 last week fasting in the morning before a neck injection with Dr Conway)., [ADDITIONAL REASON] Follow up tests - Date: (may thrAugust 2017). Encounter Diagnosis: Nonsmoker, BMI 34.0-34.9,adult, Diabetes mellitus type II, controlled, [facility], Tension headache, Dysphagia, Carpal tunnel syndrome, bilateral, Upper respiratory infection, Depression, Encounter for screening mammogram for breast cancer (Renamed from Encounter for screening mammogram for malignant neoplasm of breast), Abnormal lung function test [facility] Historical Summary On: 27-Jul-2017 15:43 Encounter Diagnosis: Diabetes mellitus type II, controlled End: 27-Jul-2017 15:51 [facility] Annotation/Addendum On: 20-Jun-2017 8:32 [facility] End: 20-Jun-2017 8:36 Office Visit On: 07-Jun-2017 8:28 Encounter Reason: Follow up for chronic medical issues - The patient feels well with minor complaints, has decreased energy level and is sleeping poorly (broken hours). Patient has been compliant with instructions. Curre End: 07-Jun-2017 10:10 nt medication use: no side effects and compliant with dosing regimen. Patient sleeps 6 hours per night. Nutrition: balanced diet. The medical issues the patient is following up for include All identifie d problems below, blood sugar issues and high blood pressure. Note for Follow up for chronic medical issues: father had a stroke- is home- had carotid stenosis and had to have surgery- blood pressure is good and weight down 13 pounds she is trying -- has had stroke- she just saw Dr Gresham yesterday doing ok - she did reaggravate her back hasnt been as active - she has cut back on portions still not al ways watching- has had ct of lumbar spine and he is doing one on her neck- she sees Zoraida, [ADDITIONAL REASON] Follow up tests - Date: (05/31/17 blood work). Encounter Diagnosis: BMI 33.0-33.9,adult, Nonsmoker, Abnormal tumor markers, Thyroid nodule (241.0), Essential hypertension with goal blood pressure less than 130/80, Vitamin D deficiency, Mixed hyperlipidemia, Fatty liver (571.8), Diabetes mellitus type II, controlled, Acquired hypothyroidism, Need for prophylactic vaccination and inoculation against influenza (Renamed from Need for immunization against influenza) [facility] Phone Encounter On: 13-Apr-2017 16:00 Encounter Diagnosis: Hypopotassemia End: 13-Apr-2017 16:03 [facility] Office Visit On: 01-Mar-2017 8:27 Encounter Reason: Follow up for chronic medical issues - The patient feels well with minor complaints, has decreased energy level and is sleeping well (broken up). Patient has been compliant with instructions. Current fl End: 01-Mar-2017 9:26 dication use: no side effects and compliant with dosing regimen. Patient sleeps 6 hours per night. Nutrition: balanced diet. The medical issues the patient is following up for include All identified pro blems below, blood sugar issues and high blood pressure. Note for Follow up for chronic medical issues: same chronic complaints- fatigue- she has had oncology and cardio followup - she admits eating m ore sugar still and going to work on that - she doesnt want to start an additional med for sugar at this point- we made a deal that if not under control next 3 months will add med- she had to reduce her methotrexate to 5 was making her hair fall out so they are adjusting meds, [ADDITIONAL REASON] Follow up, Laboratory Test Results - Date: (02/23/17). Encounter Diagnosis: BMI 36.0-36.9,adult, Nonsmoker, Thyroid nodule (241.0), Uncontrolled type II diabetes mellitus, Mixed hyperlipidemia, Acquired hypothyroidism, Vitamin D deficiency, Fatty liver (571.8), Cardiomyopathy (425.4), Encounter for hepatitis C virus screening test for high risk patient, Essential hypertension with goal blood pressure less than 130/80 [facility] Annotation/Addendum On: 17-Dec-2016 15:44 [facility] End: 17-Dec-2016 15:46 Phone Encounter On: 06-Dec-2016 17:06 Encounter Diagnosis: Non-Hodgkin's lymphoma in adult End: 06-Dec-2016 17:31 [facility] Office Visit On: 22-Nov-2016 8:07 Encounter Reason: Follow up for chronic medical issues - The patient feels well with minor complaints (tired a lot), has decreased energy level and is sleeping well (broken up). Patient has been compliant with instructio End: 22-Nov-2016 20:58 ns. Current medication use: no side effects and compliant with dosing regimen. Patient sleeps 6 hours per night. Nutrition: balanced diet. The medical issues the patient is following up for include All identified problems below, blood sugar issues and high blood pressure. Note for Follow up for chronic medical issues: did 2 cataract surgeries in sep and went well has cardio followup next month weigh t stable but sugar up has been stress eating family issues says she can get back on track- she says eating alot of junk food- she knows this is an issue with her diabetes and fatty liver- we reviewed he r labs and fatty liver tumor marker off ever so slight will need to do more workup- her mood ok, [ADDITIONAL REASON] Follow up tests - Date: (11/19 blood work). Encounter Diagnosis: BMI 36.0-36.9,adult, Current nonsmoker, Essential hypertension with goal blood pressure less than 130/80, Uncontrolled type II diabetes mellitus, Mixed hyperlipidemia, Fatty liver (571.8), Acquired hypothyroidism, Vitamin D deficiency, Thyroid nodule (241.0) [facility] Office Visit On: 16-Aug-2016 8:36 Encounter Reason: Physical female exam - General health: feels well with minor complaints (a lot of ongoing fatigue. Hasnt been feeling the greatest lately but cant really say how she feels), has decreased energy level a End: 25-Aug-2016 12:12 nd is sleeping well. The patient's appetite is normal. Nutrition: inappropriate diet. Exercises 0 days per week. Sleeps on average 7 hours per night. Normal bowel and bladder habits. Safety measures inc lude appropriate use of safety belts and home smoke detectors. Current emotional problems include anxiety and depression. Note for Physical exam: [facility] Physical- she is down 107 pounds fromhe r highest she is cutting back on portions primarily- her activiity is low though because if she overdoes it she doesnt feel well- she feels like she is moving more than she was , [ADDITIONAL REASON] Follow up, Laboratory Test Results - Date: (07/2016). Encounter Diagnosis: BMI 36.0-36.9,adult, Current nonsmoker, Need for prophylactic vaccination and inoculation against influenza (Renamed from Need for immunizati on against influenza), [facility], Encounter for screening mammogram for breast cancer (Renamed from Encounter for screening mammogram for malignant neoplasm of breast), Postmenopausal (Renamed from Postmenopausal status), Diabetes mellitus type II, controlled, Fatty liver (571.8), Acquired hypothyroidism, Mixed hyperlipidemia, Arthritis, rheumatoid, Abnormal lung function test [facility] Office Visit On: 17-May-2016 8:03 Encounter Reason: Follow up for chronic medical issues - The patient feels well with minor complaints (tired all the time and headaches a lot yet), has decreased energy level and is sleeping well. Patient has been compli End: 17-May-2016 8:45 ant with instructions. Current medication use: no side effects and compliant with dosing regimen. Patient sleeps 7 hours per night. Nutrition: balanced diet. The medical issues the patient is following up for include All identified problems below, blood sugar issues and high blood pressure. Note for Follow up for chronic medical issues: still alot of fatigue still has neck/back pain and getting inje ctions tomorrow which do help her at least for a period of time- so takes edge off but lares still there- had mri of brain ok, [ADDITIONAL REASON] Follow up, Laboratory Test Results - Date: (05/10/16). Encounter Diagnosis: Essential hypertension with goal blood pressure less than 130/80, Fatty liver (571.8), Mixed hyperlipidemia, Vitamin D deficiency, Acquired hypothyroidism, Cervical radiculopathy (723.4), Diabetes mellitus type II, controlled, Cardiomyopathy (425.4) [facility] Phone Encounter On: 19-Apr-2016 13:30 Encounter Diagnosis: Hypopotassemia End: 19-Apr-2016 14:56 [facility] Office Visit On: 09-Feb-2016 10:04 Encounter Reason: Follow up for chronic medical issues - The patient feels well with no complaints, has decreased energy level and is sleeping well. Patient has been compliant with instructions. Current medication use: c End: 09-Feb-2016 11:10 ompliant with dosing regimen. Patient sleeps 10 hours per night. Nutrition: balanced diet. Note for Follow up for chronic medical issues: bp is good and weight is stable- she had thyroid biopsy and wa s colloid nodule- recheck yearly- her sugar up she admits not eating right too much junk food is taking meds- will work harder on diet and ex, [ADDITIONAL REASON] Follow up tests - Date: (01/2016). Encounter Diagnosis: Uncontrolled type II diabetes mellitus, Nonsmoker, BMI 39.0-39.9,adult, Thyroid nodule (241.0), Fatty liver (571.8), Mixed hyperlipidemia, Vitamin D deficiency, Acquired hypothyroidism, Essential hypertension with goal blood pressure less than 130/80 [facility] Office Visit On: 10-Nov-2015 9:50 Encounter Reason: Follow up for chronic medical issues - The patient feels well with no complaints, has decreased energy level and is sleeping well (tired). Patient has been compliant with instructions. Current medicatio End: 10-Nov-2015 22:01 n use: no side effects and compliant with dosing regimen. Patient sleeps 9 (sleeps a lot in afternoon and then up at hs) hours per night. Nutrition: inappropriate diet, no supplemental vitamins & ir on and low salt diet. The medical issues the patient is following up for include All identified problems below, blood sugar issues, cardiac issues (mitral valve disorders, pvc's/ tachy), depression, hig h blood pressure, high cholesterol and other (concepción). Note for Follow up for chronic medical issues: bp is good and weight down- sees Rosetta next month- she hasnt had us of liver or thyroid due to cost , [ADDITIONAL REASON] Follow up, Laboratory Test Results - Date: (10/2015). Encounter Diagnosis: Uncontrolled type II diabetes mellitus, Mixed hyperlipidemia, Vitamin D deficiency, Fatty liver (571.8), Acquired hypothyroidism, Thyroid nodule (241.0) [facility] Historical Summary On: 22-Oct-2015 16:50 [facility] End: 22-Oct-2015 17:03 Office Visit On: 08-Aug-2015 8:37 Encounter Reason: Follow up for chronic medical issues - The patient feels well with no complaints, has decreased energy level and is sleeping poorly (not uncommen for her). Patient has been compliant with instructions. End: 11-Aug-2015 22:00 Current medication use: no side effects and compliant with dosing regimen. Patient sleeps 9 (sleeps a lot in afternoon and then up at hs) hours per night. Nutrition: inappropriate diet, no supplemental vitamins & iron and low salt diet. The medical issues the patient is following up for include All identified problems below, blood sugar issues, cardiac issues (mitral valve disorders, pvc's/ tachy) , depression, high blood pressure, high cholesterol and other (concepción). Note for Follow up for chronic medical issues: - she got nerve block yesterday in back- her bp good - she hasnt been eating good- e ating out alot- and eatign candy- had diabetic eye check this year except cataracts Encounter Diagnosis: Type 2 diabetes mellitus, uncontrolled, Hypothyroidism, Hypertension, Vitamin D deficiency, Fatty liver (571.8), Hyperlipidemia, Mixed (272.2), Thyroid nodule (241.0), Encounter for screening mammogram for breast cancer (Renamed from Encounter for screening mammogram for malignant neoplasm of breast), Need for prophylactic vaccination and inoculation against influenza [facility] Phone Encounter On: 18-Apr-2015 15:11 Encounter Diagnosis: Unspecified Diagnosis End: 18-Apr-2015 15:13 [facility] Phone Encounter On: 18-Apr-2015 9:43 Encounter Diagnosis: UTI (lower urinary tract infection) (599.0) End: 18-Apr-2015 9:46 [facility] Annotation/Addendum On: 15-Apr-2015 13:40 Encounter Diagnosis: Vitamin D deficiency End: 15-Apr-2015 13:45 [facility] Office Visit On: 14-Apr-2015 11:07 Encounter Reason: Follow up acute care visit - The patient feeling better since last seen and improving. Patient has been compliant with instructions. Current medication use: no side effects and compliant with dosing reg End: 14-Apr-2015 20:32 imen. Patient sleeps 7 hours per night. The medical issues the patient is following up for include All identified problems below and UTI. Note for Follow up acute care visit: Pt states her uti sx have completely resolved.- she had gb out and did well- and healing well eating and drinking ok- bowels ok- she still some fatigue mood been variable with everything going onEncounter Diagnosis: UTI (lower urinary tract infection) (599.0), Hypothyroidism(244.9), Fatigue (780.79), Depression (311.) [facility] Office Visit On: 31-Mar-2015 9:44 Encounter Reason: UTI - The urinary symptoms are described as painful urination, frequency, urgency, hesitancy, burning and nocturia. The symptoms have been occurring for 1 week. The symptoms have been associated with chills.Encounter Diagnosis: End: 31-Mar-2015 10:45 UTI (lower urinary tract infection) (599.0) [facility] Office Visit On: 03-Mar-2015 15:57 Encounter Reason: Follow up ER - Reason for hospitalization abdominal pain (Went to [facility] on 02/28/15). Hospitalization details include: abnormal tests Patient has been compliant with instructions. Current medication use: n End: 03-Mar-2015 22:00 o side effects, compliant with dosing regimen (was given percocet but did not fill since has norco at home) and considered effective by patient. The patient feels well with minor complaints (sore in R s magda ( thinks maybe from all the testing done at hospital) Still feels nauseous). Note for Follow up ER: no fever not eating much no vomit since february 28 when went to er- the pain has eased up still some nausea - in er did us of gb and had multiple gallstones and ssludge in gb- she eating bland jello bread pudding - having dysuria urine not clearEncounter Diagnosis: Gallstones (574.20), UTI (lower urinary tract infection) (599.0), Cardiomyopathy (425.4) [facility] Office Visit On: 31-Jan-2015 10:38 Encounter Reason: Follow up for chronic medical issues - The patient feels well with minor complaints (pt has been experiencing some nausea and her rhuematoid dr prescribed some medicine to help with that d/t thinking it End: 02-Feb-2015 22:01 s from the methotrexate. ), has decreased energy level and is sleeping poorly (not uncommen for her). Patient has been compliant with instructions. Current medication use: no side effects and compliant with dosing regimen. Patient sleeps 5 hours per night. Nutrition: inappropriate diet, no supplemental vitamins & iron and low salt diet. The medical issues the patient is following up for include Al l identified problems below, blood sugar issues, cardiac issues (mitral valve disorders, pvc's/ tachy), depression, high blood pressure, high cholesterol and other (concepción). Note for Follow up for chronic medical issues: she was getting nausea ??at first few days after taking methotrexate but now more rotuinely so Brissa put her on leucovorin - bpis good - she feels like tolerating metformin and wants to try working on diet more befroe going up on med- has cardio followup with rosetta next month feels like ticker doing ok, [ADDITIONAL REASON] Follow up, Laboratory Test Results - Date: (01/29/15). Encounter Diagnosis: Type II Diabetes,uncontrolled (250.02), Hypothyroidism(244.9), Fatty liver (571.8), Hyperlipidemia, Mixed (272.2), Cardiomyopathy (425.4), Arthritis, rheumatoid (714.0), HX, PERSONAL, MALIGNANCY, LYMPHATIC NEC (V10.79), Nausea (787.02) [facility] Office Visit On: 01-Nov-2014 9:59 Encounter Reason: Follow up for chronic medical issues - The patient feels well with minor complaints (I feel a little lump on my back in the center of my back, thoracic region. It's sore and I'm not sure what it is. I j End: 03-Nov-2014 14:16 ust noticed it this week. ), has decreased energy level and is sleeping poorly (not uncommen for her). Patient has been compliant with instructions. Current medication use: no side effects and compliant with dosing regimen. Patient sleeps 5 hours per night. Nutrition: inappropriate diet, no supplemental vitamins & iron and low salt diet. The medical issues the patient is following up for include A ll identified problems below, blood sugar issues, cardiac issues (mitral valve disorders, pvc's/ tachy), depression, high blood pressure, high cholesterol and other (concepción). Note for Follow up for chroni c medical issues: she is seeing Basali and changing injections and on mobic only for month- we talked about heart issues with it- she was off metformin forlast month had run out and admits not follwoin g good diet so trying to get backon tract- pressure good , [ADDITIONAL REASON] Follow up tests - Date: (10/15/14 blood workthere are more recent blood results from Dr. Méndez if needed). Encounter Diagnosis: Type II Diabetes,uncontrolled (250.02), Hyperlipidemia, Mixed (272.2), Fatty liver (571.8), Hypothyroidism(244.9), [place] [facility] Phone Encounter On: 01-Oct-2014 15:57 Encounter Diagnosis: Abnormal urine End: 01-Oct-2014 16:07 [facility] Office Visit On: 05-Jul-2014 8:11 Encounter Reason: Follow up tests - Date: (06/05/14 blood work)., [ADDITIONAL REASON] Follow up for chronic medical issues - The patient feels well with no complaints End: 05-Jul-2014 9:18 (would like to discuss whether she should get flu vaccine not, has had reaction in past), has decreased energy level and is sleeping poorly (not uncommen for her). Patient has been compliant with instr uctions. Current medication use: no side effects and compliant with dosing regimen. Patient sleeps 5 hours per night. Nutrition: inappropriate diet, no supplemental vitamins & iron and low salt diet . The medical issues the patient is following up for include All identified problems below, blood sugar issues, cardiac issues (mitral valve disorders, pvc's/ tachy), depression, high blood pressure, hi gh cholesterol and other (concepción). Note for Follow up for chronic medical issues: her ejection fraction has gone up to 25 from 15 and bp is good- and ??now on methotrexate for rheumatoid and is helping s o far- still some fatigue- weight up and sugar up hasnt been eating the right foods- last year did ok with flu shot in past had local reaction- has seen gilbert and headache better than were Encounter Diagnosis: Abnormal Glucose Tolerance Test (790.22), Pain, eye, right, Cellulitis, Hyperlipidemia, Mixed (272.2), Fatty liver (571.8), Hypotension, Thyroid nodule (241.0), Need for prophylactic vaccination and inoculation against influenza (V04.81), screening [facility] Annotation/Addendum On: 16-Apr-2014 14:17 Encounter Diagnosis: Unspecified Diagnosis End: 16-Apr-2014 14:18 [facility] Office Visit On: 15-Apr-2014 8:13 Encounter Reason: Eye Redness - Symptoms include eye redness and visual distortion. Symptoms are located in the right eye. Onset was sudden 1 week(s) ago. There is no known event that preceded symptom onset. The symptoms End: 15-Apr-2014 15:32 occur constantly. The patient describes this as severe and worsening. Associated symptoms include lid irritation, facial pain and facial redness. Current treatment includes antibiotics and steroids. Th e patient was previously evaluated by a primary physician (at [facility]- Dr Reyes ). Presentation included lid swelling.Encounter Diagnosis: Pain, eye, right, Cellulitis, HX, PERSONAL, MALIGNANCY, LYMPHATIC NEC (V10.79) [facility] Office Visit On: 06-Feb-2014 14:18 Encounter Reason: Follow up tests - Date: (CT brain). Note for Discuss procedure results: still headaches daily even wakes with them seem to start in neck and band around head- took amitrytypiline in past years ago was End: 06-Feb-2014 22:26 question of nightmares but she said she still has so not convinced was drug- bp better Encounter Diagnosis: Headache (784.0), Fatty liver (571.8), Abnormal Glucose Tolerance Test (790.22), Hypothyroidism(244.9) [facility] Office Visit On: 08-Jan-2014 14:28 Encounter Reason: Follow up for chronic medical issues - The patient feels well with minor complaints (has been having headaches recently again- ), has decreased energy level and is sleeping poorly (not uncommen for her) End: 08-Jan-2014 22:23 . Patient has been compliant with instructions. Current medication use: no side effects and compliant with dosing regimen. Patient sleeps 5 hours per night. Nutrition: inappropriate diet, no supplementa l vitamins & iron and low salt diet. The medical issues the patient is following up for include All identified problems below, blood sugar issues, cardiac issues (mitral valve disorders, pvc's/ tach y), depression, high blood pressure, high cholesterol and other (concepción). Note for Follow up for chronic medical issues: feels like been more dizzy with positon change - having daily headaches- back of head - saw gilbert cancer stuff ok- just had labs - has followup with cardio soon again- still losing weight and cutting back- sugars normal -bp too low, [ADDITIONAL REASON] Follow up, Laboratory Test Results - Date: (12/31/13). Encounter Diagnosis: Abnormal Glucose Tolerance Test (790.22), Hyperlipidemia, Mixed (272.2), Thyroid nodule (241.0), Fatty liver (571.8), Dizziness(780.4), Headache (784.0), Hypotension [facility] Office Visit On: 27-Jul-2013 8:42 Encounter Reason: Follow up for chronic medical issues - The patient feels well with no complaints, has decreased energy level and is sleeping poorly (not uncommen for her). Patient has been compliant with instructions. End: 27-Jul-2013 9:35 Current medication use: no side effects and compliant with dosing regimen. Patient sleeps 5 hours per night. Nutrition: inappropriate diet, no supplemental vitamins & iron and low salt diet. The med ical issues the patient is following up for include All identified problems below, blood sugar issues, cardiac issues (mitral valve disorders, pvc's/ tachy), depression, high blood pressure, high choles terol and other (concepción). Note for Follow up for chronic medical issues: bp is good and weight still coming down she is trying and really watching salt- her chol way up not sure why but doing more red me at so try to cut out- sugar really good- her sugars are good- no gerd - stillseeing dr merritt bennett and xseeing dr orr for meds- she will talk with cardio what exercise she is allowed and had to go off plawuenil due to her heart- had local reaction to flu shot in 2010 but willing to try again and didnt get last year and had flu so she willing to try again- will take benadryl to try to help, [ADDITIONAL REASON] Follow up, Laboratory Test Results - Date: (07/24/13). Encounter Diagnosis: Abnormal Glucose Tolerance Test (790.22), Constipation (564.00), Need for prophylactic vaccination and inoculation against influenza (V04.81), Hyperlipidemia, Mixed (272.2), Fatty liver (571.8), Hypothyroidism(244.9) [facility] Office Visit On: 22-Jun-2013 8:54 Encounter Reason: Constipation - The onset of the constipation has been sudden and has been occurring in a persistent pattern for 10 days. The course has been increasing. The amount of stool per bowel movement is small. End: 22-Jun-2013 9:24 The frequency of bowel movements has been per week. The symptoms have no relieving factors. The symptoms have been associated with failure to pass flatus, while the symptoms have not been associated wit h abdominal pain, anorexia, hemorrhoids, nausea, painful bowel movements or weight loss.Encounter Diagnosis: Unspecified Diagnosis, Constipation (564.00) [facility] Phone Encounter On: 11-Jun-2013 17:02 Encounter Diagnosis: Dysuria (788.1) End: 11-Jun-2013 17:03 [facility] Office Visit On: 04-Jun-2013 8:46 Encounter Reason: Urinary problems - The onset of the urinary problems has been sudden and they have been occurring in a persistent pattern for 4 days. The course has been increasing. The urinary problems are described a End: 04-Jun-2013 9:22 s moderate. The urinary problem is characterized as frequency, urgency and painful urination. There has been no associated fever / chills, back pain, nausea or blood in urine.Encounter Diagnosis: Dysuria (788.1), UTI (lower urinary tract infection) (599.0) [facility] Office Visit On: 24-Apr-2013 8:38 Encounter Reason: Follow up for chronic medical issues - The patient feels well with minor complaints (no new complaints for here- just having problems with CHF worsening- seeing cardio), has decreased energy level and i End: 24-Apr-2013 9:23 s sleeping poorly (not uncommen for her). Patient has been compliant with instructions. Current medication use: no side effects and compliant with dosing regimen. Patient sleeps 5 hours per night. Nutri tion: inappropriate diet, no supplemental vitamins & iron and low salt diet. The medical issues the patient is following up for include All identified problems below, blood sugar issues, cardiac iss ues (mitral valve disorders, pvc's/ tachy), depression, high blood pressure, high cholesterol and other (concepción). Note for Follow up for chronic medical issues: her ef down to 15 percent- she is getting occ low sugar but not often - will tryoff both meds and check sugars- she is seeing charlie and this is helping her mood- has followup in jenera may 04 - her weight down 20 pounds really trying - told see federica and discuss plaquenil , [ADDITIONAL REASON] Follow up, Laboratory Test Results - Date: (04/18/13). Encounter Diagnosis: Abnormal Glucose Tolerance Test (790.22), Type II Diabetes,uncontrolled (250.02), Hypothyroidism(244.9), Hyperlipidemia, Mixed (272.2), Cardiomyopathy (425.4), Fever (780.60), Vomiting (787.03), Epigastric Pain (789.06), Fatty liver (571.8), Depression (311.), Elevated LFT (790.6), Anemia (285.9) [facility] Phone Encounter On: 21-Feb-2013 12:09 Encounter Diagnosis: Fever (780.60) End: 21-Feb-2013 14:07 [facility] Office Visit On: 16-Feb-2013 7:03 Encounter Reason: Follow up acute care visit - The patient feeling better since last seen. Patient has been compliant with instructions. Current medication use: no side effects and compliant with dosing regimen. Patient End: 16-Feb-2013 7:40 sleeps 7 hours per night. Nutrition: inappropriate diet.Encounter Diagnosis: Fever (780.60), Cardiomyopathy (425.4), Dehydration (276.51), Vomiting (787.03), Influenza (487.1), Anemia (285.9) [facility] Phone Encounter On: 15-Feb-2013 8:52 Encounter Diagnosis: Unspecified Diagnosis End: 15-Feb-2013 8:55 [facility] Office Visit On: 15-Feb-2013 7:03 Encounter Reason: Vomiting - The last clinic visit was 2 day(s) ago. No changes in management were made at the last visit. Symptoms include nausea and vomiting, while symptoms do not include abdominal bloating, difficult End: 15-Feb-2013 8:07 y swallowing or abdominal pain. Emesis is characterized as undigested food. Onset was sudden day(s) ago. The patient describes this as moderate in severity and worsening. Associated symptoms include fev er, chills, fatigue and weakness, while associated symptoms do not include diarrhea. Current treatment includes oral hydration.Encounter Diagnosis: Fever (780.60), Vomiting (787.03), Dehydration (276.51), Cardiomyopathy (425.4) [facility] Office Visit On: 19-Jan-2013 8:51 Encounter Reason: Follow up for chronic medical issues - The patient feels well with minor complaints (no new complaints- just her same usual health issues that continue), has decreased energy level and is sleeping poorl End: 19-Jan-2013 9:25 y (not uncommen for her). Patient has been compliant with instructions. Current medication use: no side effects and compliant with dosing regimen. Patient sleeps 6 (including naps) hours per night. Nutr ition: inappropriate diet, no supplemental vitamins & iron and low salt diet. The medical issues the patient is following up for include All identified problems below, blood sugar issues, cardiac is sues (mitral valve disorders, pvc's/ tachy), depression, high blood pressure, high cholesterol and other (concepción). fasting blood sugars : (140's to 240's). Note for Follow up for chronic medical issues: weight down 14 pounds- bp is good - she isnt eating as much and sugar now, [ADDITIONAL REASON] Follow up, Laboratory Test Results - Date: (01/03/13). Encounter Diagnosis: Abnormal Glucose Tolerance Test (790.22), Hypothyroidism(244.9), Fatty liver (571.8), Thyroid nodule (241.0), Hyperlipidemia, Mixed (272.2), screening , Epigastric Pain (789.06) [facility] Office Visit On: 29-Sep-2012 7:14 Encounter Reason: Cough - The onset of the cough has been 3 days ago. The cough is characterized as productive of mucopurulent sputum. The amount of sputum produced is scanty. The cough occurs all the time. The symptoms End: 29-Sep-2012 7:45 have been associated with dyspnea, fever, headache, hoarseness, runny nose, sore throat and wheezing. the color of the sputum is greenish. Note for Cough : Pt didnt get flu vaccine and has body ache. temp was 100 at home- Encounter Diagnosis: Fever (780.60), SOB (786.05), Influenza (487.1), Acute bronchitis (466.0) [facility] Office Visit On: 15-Sep-2012 11:25 Encounter Reason: Follow up for chronic medical issues - The patient feels well with no complaints, has decreased energy level and is sleeping poorly (not uncommen for her). Patient has been compliant with instructions. End: 19-Sep-2012 14:52 Current medication use: no side effects and compliant with dosing regimen. Patient sleeps 6 (including naps) hours per night. Nutrition: inappropriate diet, no supplemental vitamins & iron and low s alt diet. The medical issues the patient is following up for include All identified problems below, blood sugar issues, cardiac issues (mitral valve disorders, pvc's/ tachy), depression, high blood pres sure, high cholesterol and other (concepción). fasting blood sugars : (140's to 240's). Note for Follow up for chronic medical issues: lares another echo and still 15- 20 percent - sees her heart failure doctor soon- bp ok- she has gained 40 pounds in last 8 months she said she eats whatever she wants and not good stuff - but her family is all going to change there eating habits at the beginning of the year - just had kidney and liver done at hospital and thyroid was ok , [ADDITIONAL REASON] Follow up, Laboratory Test Results - Date: (06/19/12). Encounter Diagnosis: Abnormal Glucose Tolerance Test (790.22), Hypothyroidism(244.9), BMI 45.0-49.9, ADULT (V85.42), Thyroid nodule (241.0), Hyperlipidemia, Mixed (272.2), Fatty liver (571.8) [facility] Erroneous Entry On: 25-Aug-2012 14:16 [facility] End: 28-Aug-2012 17:57 Annotation/Addendum On: 22-May-2012 16:12 Encounter Diagnosis: Hypothyroidism(244.9) End: 22-May-2012 16:16 [facility] Office Visit On: 12-May-2012 8:56 Encounter Reason: Follow up for chronic medical issues - The patient feels well with no complaints, has decreased energy level and is sleeping poorly (not uncommen for her). Patient has been compliant with instructions. End: 12-May-2012 9:45 Current medication use: experiencing side effects (dizziness) and compliant with dosing regimen. Patient sleeps 6 (including naps) hours per night. Nutrition: inappropriate diet, no supplemental vitamin s & iron and low salt diet. The medical issues the patient is following up for include All identified problems below, blood sugar issues, cardiac issues (mitral valve disorders, pvc's/ tachy), depre ssion, high blood pressure, high cholesterol and other (concepción). fasting blood sugars : (140's to 240's). Note for Follow up for chronic medical issues: Pt has her normal chronic complaints of fatigue bu t no new complaints.- she has gone off diet bandwagon ate alot of ice cream this summer so weiht up significantly- -bp good and sugar still ok - labs reviewed- sees heart failure doctor next week at [facility] - -- mood ebs and flows- sees dr bang still every 2 weeks- aixa wants her to take wethotrexae so they are working on that- had another injection by basali- in her back and didnt help, [ADDITIONAL REASON] Follow up, Laboratory Test Results - Date: (05/03/12). Encounter Diagnosis: Abnormal Glucose Tolerance Test (790.22), Hypothyroidism(244.9), Hyperlipidemia, Mixed (272.2), Thyroid nodule (241.0), Depression (311.), LOW BACK PAIN WITH RADICULOPATHY (724.4), Arthritis, rheumatoid (714.0) [facility] Office Visit On: 24-Jan-2012 10:23 Encounter Reason: Follow up for chronic medical issues - The patient feels well with no complaints, has good energy level and is sleeping poorly (not uncommen for her). Patient has been compliant with instructions. Uziel End: 24-Jan-2012 10:56 nt medication use: no side effects and compliant with dosing regimen. Patient sleeps 6 (including naps) hours per night. Nutrition: inappropriate diet, no supplemental vitamins & iron and low salt d iet. The medical issues the patient is following up for include All identified problems below, blood sugar issues, cardiac issues (mitral valve disorders, pvc's/ tachy), depression, high blood pressure, high cholesterol and other (concepción). fasting blood sugars : (140's to 240's). Note for Follow up for chronic medical issues: weight down 63 pounds over last 3 pounds - she has good bp and sugar lowest i t has been in while- had side effects of fentanyl and percocet so off the pain meds- and she is just trying to manage the pain- with basali they are working todether - dr nicolas diagnosed her with fibr o and ra -and is on plaquenil=- she saw Edvin for recurrent utis- so now on macrobid for uti and then once a day for month- mood not great -just tired of all the problems -goes back to [facility] on tuesday and psych in 2 weeksEncounter Diagnosis: Hypothyroidism(244.9), Hyperlipidemia, Mixed (272.2), Elevated LFT (790.6), Arthritis, rheumatoid (714.0), Fibromyalgia (729.1), Thyroid nodule (241.0), Abnormal Glucose Tolerance Test (790.22), Depression (311.), Fatty liver (571.8), screen [facility] Office Visit On: 20-Dec-2011 11:24 Encounter Reason: Dysuria - The onset of the dysuria has been acute and has been occurring in a persistent pattern for 2 days. The course has been increasing. The dysuria is described as moderate. The quality of the pain End: 20-Dec-2011 12:08 is described as a burning sensation The dysuria is described as being located in the suprapubic area. The dysuria radiates to the left flank. The symptoms have been associated with flank pain, while th e symptoms have not been associated with chills or fever.Encounter Diagnosis: Dysuria (788.1) [facility] Office Visit On: 22-Nov-2011 11:12 Encounter Reason: Talk about Pain Management - Pt is currently seeing Dr. Conway for paain management and is unhappy with him.-- he sent her to rheum for fibro and started her on savella- also sent her to [facility] and he felix End: 22-Nov-2011 21:49 dnt do surgery- it did injection- feels like lack of communication- between them and doesnt feel like getting alot betterEncounter Diagnosis: Cervical radiculopathy (723.4), LOW BACK PAIN WITH RADICULOPATHY (724.4) [facility] Office Visit On: 04-Oct-2011 9:02 Encounter Reason: Follow up for chronic medical issues - The patient feels well with no complaints, has good energy level and is sleeping poorly (not uncommen for her). Patient has been compliant with instructions. Uziel End: 04-Oct-2011 9:51 nt medication use: no side effects and compliant with dosing regimen. Patient sleeps 6 (including naps) hours per night. Nutrition: inappropriate diet, no supplemental vitamins & iron and low salt d iet. The medical issues the patient is following up for include All identified problems below, blood sugar issues, cardiac issues (mitral valve disorders, pvc's/ tachy), depression, high blood pressure, high cholesterol and other (concepción). fasting blood sugars : (144, 245). Note for Follow up for chronic medical issues: Has been referred to arthritis clinic per zoraida- - her psych meds changed to lamic favian clonazepam and off pristiq and seroquel- prices better- also on celexa- her mood is is reasonable- bp good and weight coming down down 65 piunds in last 5 years and going to weight watchers- and exe rcising- she is still doing counseling - she is seeing zoraida for back issues- sees rosettatue- she got rid of bronchial infection and so will start exercising again- her trigs and hdl went astray, [ADDITIONAL REASON] Follow up, Laboratory Test Results - Date: (08/06/11). Encounter Diagnosis: Thyroid nodule (241.0), Hyperlipidemia, Mixed (272.2), Diabetes, Type II, controlled (250.00), Fatty liver (571.8), Hypothyroidism(244.9) [facility] Office Visit On: 26-Aug-2011 7:14 Encounter Reason: Bronchitis - The onset of the bronchitis has been acute and has been occurring in a persistent pattern for 3 days. The course has been constant. The bronchitis has no relieving factors. Associated feat End: 26-Aug-2011 7:43 ures include chest tightness, coughing up purulent sputum and nasal discharge/stuffy nose.The patient has a habit to not smoke.Encounter Diagnosis: BRONCHITIS, NOT SPECIFIED ACUTE OR CHRONIC (490.) [facility] Annotation/Addendum On: 23-Jul-2011 11:31 Encounter Diagnosis: Unspecified Diagnosis End: 23-Jul-2011 11:33 [facility] Office Visit On: 23-Jul-2011 8:22 Encounter Reason: Urinary problems - The onset of the urinary problems has been sudden and they have been occurring in a persistent pattern for 2 days. The course has been increasing. The urinary problems are described a End: 23-Jul-2011 8:45 s moderate. The urinary problem is characterized as frequency, urgency and painful urination. There has been no associated fever / chills, back pain, nausea or blood in urine.Encounter Diagnosis: Dysuria (788.1) [facility] Office Visit On: 05-Jul-2011 9:17 Encounter Reason: Follow up for chronic medical issues - The patient feels well with no complaints, has good energy level and is sleeping poorly (not uncommen for her). Patient has been compliant with instructions. Curre End: 05-Jul-2011 10:28 nt medication use: experiencing side effects (thinning hair or hair loss from thyroid med) and compliant with dosing regimen. Patient sleeps 6 (including naps) hours per night. Nutrition: inappropriate diet, no supplemental vitamins & iron and low salt diet. The medical issues the patient is following up for include All identified problems below, blood sugar issues, cardiac issues (mitral valve di sorders, pvc's/ tachy), depression, high blood pressure, high cholesterol and other (concepción). fasting blood sugars : (144, 245). Note for Follow up for chronic medical issues: Pt is having alot of back i ssues right now. She is seeing Dr. Conway for pain and Dr. Conde for ortho.-they are swapping back and forth trying to get her better- they dont want to do surgery- weight down 14 pounds since a year ag o- bp about the same- had eye exam this year and was ok - saw jessica- seeing Rosetta for her heart and next week has appt with her heart failure doc- and has echo set up for next week- mood up and down- still seeing Dr Bang- she is seeing Bessy cruz- who she likes- she is off pristiq- still on seroquel, [ADDITIONAL REASON] Follow up, Laboratory Test Results - Date: (04/15/11). Encounter Diagnosis: Need for prophylactic vaccination and inoculation against influenza (V04.81), Type II Diabetes,uncontrolled (250.02), Hypothyroidism(244.9), Hyperlipidemia, Mixed (272.2), Elevated LFT (790.6), Thyroid nodule (241.0), screening [facility] Office Visit On: 04-Jun-2011 7:02 Encounter Reason: UTI - The urinary symptoms are described as painful urination, frequency, urgency and burning. The symptoms have been occurring for 9 hours and have been increasing. The urine is described as yellow. T End: 04-Jun-2011 8:19 he symptoms have been associated with abdominal pain, diarrhea and nausea, while the symptoms have not been associated with fever, perineal pain or vomiting. There is a medical history of diabetes, whil e there is no history of current , kidney stones or recurrent urinary tract infections. The patient has been using antibiotics and pyridium/uristat, while the patient denies the use of oral contraceptives or hormone replacement therapy. Encounter Diagnosis: Unspecified Diagnosis, Dysuria (788.1), Cystitis,Acute (595.0) [facility] Annotation/Addendum On: 06-May-2011 14:54 Encounter Diagnosis: Unspecified Diagnosis End: 06-May-2011 14:57 [facility] Office Visit On: 03-May-2011 10:28 Encounter Reason: Urinary problems - The onset of the urinary problems has been sudden and they have been occurring in a persistent pattern for 1 day. The course has been constant. The urinary problems are described as m End: 03-May-2011 11:02 oderate. The urinary problem is characterized as frequency, urgency and painful urination. There has been associated back pain.Encounter Diagnosis: Dysuria (788.1) [facility] Office Visit On: 05-Jan-2011 10:19 Encounter Reason: Follow up for chronic medical issues - The patient does not feel well (headaches are worsening, more frequent, pain more intense and headaches are all over. Low back pain with radiculopathy worsening, h End: 05-Jan-2011 11:04 obed for her to walk, gets a burning sensation. ), has decreased energy level (d/t alot of the meds she takes) and is sleeping poorly (not uncommen for her). Patient has been compliant with instructions. Current medication use: experiencing side effects (dizzy, nausea and fatigue from all her meds) and compliant with dosing regimen. Patient sleeps 6 (including naps) hours per night. Nutrition: inapprop riate diet, no supplemental vitamins & iron and low salt diet. The medical issues the patient is following up for include All identified problems below, blood sugar issues, cardiac issues (mitral va lve disorders, pvc's/ tachy), depression, high blood pressure, high cholesterol and other (concepción). fasting blood sugars : (144, 245) and postprandial sugars : (150's or less). 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: Pt's insurance wont cover Victoza or Byetta- Need suggestions on what else she could take.- she has been working on diet- weight down 4 pounds- her sugar was 144 fasting this am- - bp is down and pulse is down Encounter Diagnosis: Type II Diabetes,uncontrolled (250.02), Headache (784.0), LOW BACK PAIN WITH RADICULOPATHY (724.4), Hyperlipidemia, Mixed (272.2), Fatty liver (571.8), Hypothyroidism(244.9), Obstructive sleep apnea (327.23) [facility] Office Visit On: 07-Oct-2010 9:43 Encounter Reason: Follow up for chronic medical issues - The patient feels well with minor complaints (ongoing fatigue and recurring headaches- throbbing), has decreased energy level (d/t alot of the meds she takes) and End: 07-Oct-2010 10:35 is sleeping poorly (not uncommen for her). Patient has been compliant with instructions. Current medication use: experiencing side effects (coreg and lisinopril make her dizzy) and compliant with dosing regimen. Patient sleeps 6 (including naps) hours per night. Nutrition: inappropriate diet, no supplemental vitamins & iron and low salt diet. The medical issues the patient is following up for incl ude All identified problems below, blood sugar issues, cardiac issues (mitral valve disorders, pvc's/ tachy), depression, high blood pressure, high cholesterol and other (concepción). Note for Follow up for c hronic medical issues: last few mos- mom really ill with urosepsis and myocardial infarction- - doing alot better now- headaches in back of head tight band like around head- have been cconstant last fe w weeks - no vision change weakness or numbness that is new- there when wake in am- saw gilbert last month- amber is adfressing the breathing issues- last ef in last few mos - was up to 25 percent- she is taking the byetta and glucophage, [ADDITIONAL REASON] Follow up, Laboratory Test Results - Date: (09/03/10). Encounter Diagnosis: Type II Diabetes,uncontrolled (250.02), Hypothyroidism(244.9), Obstructive sleep apnea (327.23), Fatty liver (571.8), Thyroid nodule (241.0), Headache (784.0), Hyperlipidemia, Mixed (272.2) [facility] Office Visit On: 26-Jun-2010 9:08 Encounter Reason: Follow up for chronic medical issues - The patient feels well with no complaints ,has decreased energy level (d/t alot of the meds she takes) and is sleeping poorly (not uncommen for her). Patient has b End: 26-Jun-2010 10:07 een compliant with instructions. Current medication use: experiencing side effects (coreg and lisinopril make her dizzy) and compliant with dosing regimen. Patient sleeps 7 (including naps) hours per ni ght. Nutrition: inappropriate diet ,no supplemental vitamins & iron and low salt diet. The medical issues the patient is following up for include All identified problems below ,blood sugar issues ,c ardiac issues (mitral valve disorders, pvc's/ tachy) ,depression ,high blood pressure ,high cholesterol and other ([place]). Note for Follow up for chronic medical issues: her psychiatriast put her back o n seroquel and klonazepam-but her alopecia issue is getting better with better anxiety control- her throat issue is gone- weight down 2 pounds and bp is good- she has been taking glucophage0 -not rotuinely getting diarrhea sometimes, [ADDITIONAL REASON] Follow up, Laboratory Test Results - Date: (06/24/10). Note for Follow up, Laboratory Test Results: she had her pristiq increased becuase of moood- and thinks its helping- Encounter Diagnosis: Type II Diabetes,uncontrolled (250.02), ALOPECIA NOS (704.00), Hypothyroidism(244.9), Abnormal TSH (794.5), Hyperlipidemia, Mixed (272.2), Thyroid nodule (241.0), Elevated LFT (790.6), Abnormal blood chemistry (790.6), Need for prophylactic vaccination and inoculation against influenza (V04.81), screening [facility] Phone Encounter On: 29-May-2010 12:07 [facility] End: 29-May-2010 12:11 Annotation/Addendum On: 18-May-2010 18:45 [facility] End: 18-May-2010 18:48 Office Visit On: 13-May-2010 9:25 Encounter Reason: Sore throat - The onset of the sore throat has been sudden and has been occurring in a persistent pattern for 3 days. The course has been worsening. The symptoms have been associated with change in voic End: 13-May-2010 10:13 e and difficulty in swallowing, while the symptoms have not been associated with chills ,cough ,ear pain ,fever ,post-nasal drip ,runny nose ,sinus pain or swelling of neck glands. Note for Sore throat : hard to swallow- red and thought saw some white- no fever - maybe some nasal congestion - no cough, [ADDITIONAL REASON] Follow up, Diagnostic Procedure Results - Diagnostic tests include ultrasound (t hyroid). Date: (04/21/10). Note for Follow up, Diagnostic Procedure Results: no change in sx , [ADDITIONAL REASON] Follow up, Laboratory Test Results - Date: (04/21/10). Note for Follow up, Labor atory Test Results: she had her pristiq increased becuase of moood- and thinks its helping- Encounter Diagnosis: PHARYNGITIS, ACUTE (462.), Thyroid nodule (241.0), Elevated LFT (790.6), Hyperlipidemia, Mixed (272.2), Abnormal TSH (794.5), ALOPECIA NOS (704.00) [facility] Historical Summary On: 15-Apr-2010 14:42 [facility] End: 15-Apr-2010 14:43 Phone Encounter On: 15-Apr-2010 12:51 [facility] End: 15-Apr-2010 12:59 Office Visit On: 19-Feb-2010 9:54 Encounter Reason: UTI - The urinary symptoms are described as frequency ,urgency and burning. The symptoms have been occurring for 2 weeks and have been increasing. The urine is described as brown ,yellow and dark. The s End: 19-Feb-2010 10:27 ymptoms have been associated with abdominal pain and low back pain, while the symptoms have not been associated with fever ,chills ,diarrhea ,nausea ,vomiting or vaginal discharge. There is no history o f sexual contact with a person having an STD ,use of tampons ,douching ,sexual contact with a person exposed to an STD ,recent catheterization ,new sexual partner or current catheterization. There is a medical history of diabetes and recurrent urinary tract infections, while there is no history of current or menopause. The patient denies the use of oral contraceptives ,antibiotics ,hormone replacement therapy or pyridium/uristat. Encounter Diagnosis: Dysuria (788.1) [facility] Office Visit On: 07-Jan-2010 11:33 Encounter Reason: Follow up Meds - The patient feels well with no complaints (Pt states sometimes the byetta still makes her sick, but as long as she takes it with food then its not as bad and she's not as hungry all the End: 07-Jan-2010 23:13 time and the increase of neurontin has helped with her back pain. No new complaints.) ,has good energy level and is sleeping poorly (never has slept well). Patient has been compliant with instructions. Current medication use: no side effects and compliant with dosing regimen. Patient sleeps 5 hours per night. Note for Follow up Meds: had all tests and reviewed and neg- her neck pain is same startin g therapy for this tommorrow- she is doing better with byetta- taking food first then byetta and tolerating- less hungry- only checking sugars once a way- discussed way to check - fasting thenEncounter Diagnosis: Diabetes, Type II, controlled (250.00), Cervical radiculopathy (723.4), Hyperlipidemia, Mixed (272.2), Elevated LFT (790.6), Thyroid nodule (241.0) [facility] Office Visit On: 23-Dec-2009 15:05 Encounter Reason: Follow up, Diagnostic Procedure Results - Diagnostic tests include CT scan (spine/cervical). Date: (12/19/09). Note for Follow up, Diagnostic Procedure Results: no change in sxEncounter Diagnosis: Cervical radiculopathy (723.4), End: 24-Dec-2009 8:20 ABFND, RADIOLOGICAL, BODY STRUCTURE NEC (793.99), personal hx of lymphoma [facility] Office Visit On: 15-Dec-2009 11:57 Encounter Reason: Back pain - The onset of the pain has been sudden and has been occurring in a persistent pattern for 2 weeks. The course has been constant. The pain is characterized as piercing and burning. The pain is End: 15-Dec-2009 22:51 described as being located in the upper back. The pain does not radiate. There are no precipitating factors. The symptoms have no aggravating factors. The symptoms have no relieving factors. The pain h as been associated with history of back surgery (removed tumor on spine- 2005) ,history of malignancy and leg weakness (left leg- on going), while there has been no abdominal pain ,chills ,fever ,flank pain ,hip pain ,history of disc prolapse ,incontinence of stool ,incontinence of urine ,trauma ,use of anti-coagulants or use of corticosteroids. Note for Back pain: burning in shoulders all the time intermittent numbness and tingling in hands mostly at night wakes- if she changes position or shake out her hands it gets better- no weakness in arms- not dropping anything-- little pain both upper arms to elbow- and undler left shoulder blade left arm worse than rightEncounter Diagnosis: Cervical radiculopathy (723.4) [facility] Office Visit On: 28-Nov-2009 8:43 Encounter Reason: Follow up Meds - The patient feels well with minor complaints (Pt states the nausea has stopped since stopping the byetta, resolved. Pt states her lbp continues, no better, no worse. Shoots down her leg End: 30-Nov-2009 21:40 with a burning sensation and cant stand very long d/t that.) ,has good energy level and is sleeping well. Patient has been compliant with instructions. Current medication use: no side effects and compl iant with dosing regimen. Patient sleeps 5 hours per night. Nutrition: inappropriate diet and no supplemental vitamins & iron. Note for Follow up Meds: rosetta took her off lisinopril becuase was ma fernando her dizzy- so he restarted though at low dose 2 days ago so going to see how she does- -she has no nuasea off bytyrell- she even got when was eating grilled chicken and green beans and was taking mone ropriately but weight creeping back up- take 4 tabs of glucophage a day- she notes the neurontin really helps back but still significant- pain--Encounter Diagnosis: Diabetes, Type II, controlled (250.00), LOW BACK PAIN WITH RADICULOPATHY (724.4), Hyperlipidemia, Mixed (272.2) [facility] Office Visit On: 17-Oct-2009 11:41 Encounter Reason: Dysuria - The onset of the dysuria has been sudden and has been occurring in a persistent pattern for 5 days. The course has been increasing. The dysuria is described as moderate. The quality of the trenton End: 17-Oct-2009 13:41 n is described as a burning sensation The dysuria is described as being located in the vaginal area. The dysuria does not radiate. The symptoms have been associated with frequency ,incontinence ,past hi story of urinary tract infections and urgency, while the symptoms have not been associated with chills ,fever ,flank pain ,hematuria or vaginal discharge. , [ADDITIONAL REASON] Nausea - The onset of the nausea has been gradual and has been occurring in a persistent pattern for months. The course has been increasing. The nausea occurs immediately after meal s (sometimes not though). The symptoms are aggravated by eating. The symptoms have no relieving factors. The symptoms have been associated with dysuria, while the symptoms have not been associated with abdominal pain ,chest pain ,dark urine ,diarrhea ,fever ,myalgia ,upper respiratory infection symptoms or vomiting. Note for Nausea: even if eats chicken salad and green beans- since started elizabethtyrell- tried ppi no help Encounter Diagnosis: Dysuria (788.1), Nausea (787.02), Diabetes, Type II, controlled (250.00), Elevated LFT (790.6) [facility] Annotation/Addendum On: 25-Aug-2009 17:51 [facility] End: 25-Aug-2009 17:52 Office Visit On: 09-Jul-2009 11:46 Encounter Reason: Follow up for chronic medical issues - The patient feels well with minor complaints (thinks she has a bladder infection- frequency and burning with urination) ,has good energy level and is sleeping poor End: 10-Jul-2009 16:56 ly (not uncommen for her). Patient has been compliant with instructions. Current medication use: no side effects and compliant with dosing regimen. Patient sleeps 5 hours per night. Nutrition: inappropr iate diet ,no supplemental vitamins & iron and low salt diet. The medical issues the patient is following up for include All identified problems below ,blood sugar issues ,cardiac issues (mitral eder ve disorders, pvc's/ tachy) ,depression ,high blood pressure ,high cholesterol and other ([place]). postprandial sugars : (100's to 110's). , [ADDITIONAL REASON] Follow up, Laboratory Test Results - Date: (07/04/09). , [ADDITIONAL REASON] UTI - The urinary symptoms are described as painful urination ,frequency ,urgency and burning. The symptoms have been occurring for 2 weeks and have been decreasing. The urine is de scribed as green ,white and yellow. The symptoms have been associated with diarrhea and lightheadedness, while the symptoms have not been associated with fever ,abdominal pain ,chills ,nausea ,vomiting ,low back pain or vaginal discharge. There is no history of sexual contact with a person having an STD ,use of tampons ,douching ,sexual contact with a person exposed to an STD ,recent catheterization , new sexual partner or current catheterization. There is a medical history of diabetes and recurrent urinary tract infections, while there is no history of current or menopause. The patient den ies the use of oral contraceptives ,antibiotics ,hormone replacement therapy or pyridium/uristat. Encounter Diagnosis: Diabetes, Type II, controlled (250.00), Need for prophylactic vaccination and inoculation against influenza (V04.81), Dysuria (788.1), SOB (786.05), Hyperlipidemia, Mixed (272.2), FATTY LIVER (571.8) [facility] Office Visit On: 13-Mar-2009 11:44 Encounter Reason: Follow up, Laboratory Test Results - Date: (02/26/09). , [ADDITIONAL REASON] Follow up for chronic medical issues - The patient feels well with minor complai End: 13-Mar-2009 22:20 nts (continued fatige) ,has decreased energy level and is sleeping well. Patient has been compliant with instructions. Current medication use: no side effects and compliant with dosing regimen. Patient sleeps 7 hours per night. The medical issues the patient is following up for include All identified problems below ,blood sugar issues ,depression ,high blood pressure and high cholesterol. Encounter Diagnosis: Type II Diabetes,uncontrolled (250.02) , Hyperlipidemia, Mixed (272.2), Elevated LFT (790.6), FATTY LIVER (571.8), Headache (784.0), Syncope (780.2), LOW BACK PAIN WITH RADICULOPATHY (724.4) [facility] Office Visit On: 27-Dec-2008 11:04 Encounter Reason: Follow up, Laboratory Test Results - Date: (12/23/08). Note for Follow up, Laboratory Test Results: she definitely thinks the neurontin is helping-- -sheis still doing the exercises- and doesnt feel li End: 27-Dec-2008 11:50 ke she wants to increase the dose- makes her too fatigued if does-- she is on coreg and lowering her bp and heartrate-- she doesnt feel like right now she need or wants to go to the pain clinic- she saw Velasquez and he increase her seroquel to the xzr- this is helping her sleep better- mood still ebs and flows-s till doing the counsleing- she is making progressEncounter Diagnosis: FATTY LIVER (571.8), Elevated LFT (790.6), Type II Diabetes,uncontrolled (250.02), Depression (311.), Hyperlipidemia, Mixed (272.2) [facility] Office Visit On: 17-Dec-2008 13:22 Encounter Reason: Dysuria - The onset of the dysuria has been acute and has been occurring in a persistent pattern for 6 days. The course has been constant. The dysuria is described as moderate. The quality of the pain i End: 17-Dec-2008 13:41 s described as a burning sensation The dysuria is described as being located in the vaginal area. The dysuria does not radiate. The symptoms have been associated with frequency ,past history of urinary tract infections and urgency, while the symptoms have not been associated with chills ,fever or flank pain. Encounter Diagnosis: Dysuria (788.1) [facility] Office Visit On: 25-Nov-2008 10:13 Encounter Diagnosis: LOW BACK PAIN WITH RADICULOPATHY (724.4), Hyperlipidemia, Mixed (272.2), FATTY LIVER (571.8) End: 25-Nov-2008 10:35 [facility] Office Visit On: 25-Oct-2008 10:30 Encounter Reason: Follow up, Diagnostic Procedure Results - Diagnostic tests include MRI (spine) ,other (stress test- 10/17/08) and ECHO (10/10/08- in scanned documents). Date: (10/11/08). Note for Follow up, Diagnostic Pr End: 25-Oct-2008 10:57 ocedure Results: she saw Rosetta and he stopped bystolic because her bp was low and ordered dobutamine stress echo and he thinks she has possibley a chemo related cardiomyopthy- -- she is still having th e back painin her buttocks radiating into leg and heel- little weak not numb- dysuria is goneEncounter Diagnosis: LOW BACK PAIN WITH RADICULOPATHY (724.4), Abnormal Stress Test(794.39), pvcs and tachycardia [facility] Office Visit On: 10-Oct-2008 9:42 Encounter Reason: Follow up, Diagnostic Procedure Results - Diagnostic tests include other (holter monitor). Date: (09/02). Current symptoms include other (back pain). Past medical history includes cardiovascular disease End: 10-Oct-2008 22:49 ,emotional problems ,hypertension and other (HTN, Hyperlipidemia). Note for Follow up, Diagnostic Procedure Results: not having the palpitations like she was and dysuria is better , [ADDITIONAL REASON] Follow up, Laboratory Test Results - Lab results: other (CBC, CMP, Lipid, TSH microalbumin creatine). Date: (10/07/08). Current symptoms/reason for visit include/s Symptoms include o ther (back pain). Past medical history includes cardiovascular disease ,diabetes mellitus ,elevated cholesterol and hypertension. Encounter Diagnosis: LOW BACK PAIN WITH RADICULOPATHY (724.4), Type II Diabetes,uncontrolled (250.02), Goiter (240.9), Dysuria (788.1), pvcs and tachycardia [facility] Office Visit On: 09-Sep-2008 17:29 Encounter Reason: Dysuria - The onset of the dysuria has been sudden and has been occurring in a persistent pattern for 2 days. The course has been increasing. The dysuria is described as moderate (to severe). The qualit End: 09-Sep-2008 22:30 y of the pain is described as a burning sensation The dysuria is described as being located in the perineal area. The dysuria does not radiate. The symptoms have been associated with diabetes ,frequency and urgency, while the symptoms have not been associated with chills ,fever ,flank pain ,hematuria ,history of passing a stone ,trauma to abdomen ,vaginal discharge or excessive caffeine intake. Note for Dysuria: no feverEncounter Diagnosis: Dysuria (788.1), Depression (311.) [facility] Office Visit On: 05-Aug-2008 14:06 Encounter Reason: Dysuria - The onset of the dysuria has been sudden and has been occurring in a persistent pattern for 2 days. The course has been decreasing. The dysuria is described as moderate. The quality of the t[place] End: 05-Aug-2008 21:22 n is described as a burning sensation The dysuria is described as being located in the perineal area. The dysuria does not radiate. The symptoms have been associated with diabetes ,flank pain ,frequency and urgency, while the symptoms have not been associated with chills ,fever ,hematuria ,history of passing a stone ,incontinence , ,vaginal discharge or excessive caffeine intake. Note for Dy suria: woke up with yesterday - so drank alot of water and ranberry and feels a little better todayEncounter Diagnosis: Dysuria (788.1) [facility] Office Visit On: 10-Jul-2008 9:24 Encounter Reason: Follow up for chronic medical issues - The patient does not feel well ,has decreased energy level and is sleeping poorly. Patient has been compliant with instructions. Current medication use: experienci End: 11-Jul-2008 21:29 ng side effects (from Amitryptiline, gets terrible night leon). Patient sleeps 5 hours per night. Impact of disease: emotional impact-mild. Nutrition: inappropriate diet. The medical issues the patient is following up for include All identified problems below ,blood sugar issues ,cardiac issues ,depression ,high blood pressure and high cholesterol. Note for Follow up for chronic medical issues: the family is concerned-- becuase she is still fatigued-- we ge go ahead and make psych referral-- she feels less falling asleep during the day- but still fatigued-- she gets more angry easily -- she wasn t this way with alternating the meds of effexor so go back to that - she is noticing more palpitations- not drinking caffeine and not dizzy- Encounter Diagnosis: Diabetes, Type II, controlled (250.00), Symptom, Palpitations (785.1), FATTY LIVER (571.8), Obstructive sleep apnea (327.23), Depression (311.), Need for prophylactic vaccination and inoculation against influenza (V04.81) [facility] Office Visit On: 29-May-2008 8:15 Encounter Reason: Follow up Meds - The patient feels well with no complaints ,has good energy level and is sleeping poorly. Patient has been compliant with instructions. Current medication use: no side effects and compli End: 29-May-2008 9:07 ant with dosing regimen. Patient sleeps 6 hours per night. Note for Follow up Meds: she is doing some better on celexa- less fatigue- not falling asleep sitting up-- still some issues with mood- she is still seeing Merritt, [ADDITIONAL REASON] Follow up, Laboratory Test Results - Date: (05/20/08). Encounter Diagnosis: Depression (311.), Diabetes, Type II, controlled (250.00), FATTY LIVER (571.8), Elevated LFT (790.6) [facility] Office Visit On: 22-Apr-2008 16:23 Encounter Reason: Follow up, Laboratory Test Results - Date: (03/12/08). Note for Follow up, Laboratory Test Results: she still feels depression may be a role-- but more fatigued on the effexor at higher dose-- she is s End: 29-Renato-2008 6:[address] Bang-- freq awakening at night and still alot of worrying about her disease-- would consider additional meds--discussed mng and she also discussed this with gilbert-- her ct was rev iewed and showed fatty liver which may be the cause of her elevation of liver issues but feel should send off rest of labs becuase she has had transfusion and stem cell transplant and should check hepat itis status-- but no apparent tumors of the liver, [ADDITIONAL REASON] Follow up, Diagnostic Procedure Results - Diagnostic tests include ultrasound (thyroid). Date: (02/29/08). 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 Date: (01/23/08). Note for Follow up, Diagnostic Procedure Results: she is having much less headaches and only 1-2 x End: 20-Feb-2008 19:27 a week and much less painful--- - the therapy is really helping her-- she doesnt have as much fatigue as she used to -- she feels the fatigue may be mood related-- she is on effexor -- would like to try a little higher dose, [ADDITIONAL REASON] Follow up, Laboratory Test Results - Date: (02/15/08). 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 The course has been increasing in frequency. The headache/ is characterized as a dull End: 19-Jan-2008 8:23 ache ,deep pain and moderate. The headache/ is experienced any time of the day (no diurnal variation). The headache/ is described as being located in the entire head. The symptoms have been associated w ith migraine in the past ,nasal discharge/stuffy nose ,neck pain and sinusitis in the past, while the symptoms have not been associated with blurring of vision ,ear pain ,eye pain ,fever ,nausea ,neck s tiffness ,sore throat ,vertigo or vomiting. The headache/ is relieved by NSAIDs (and ativan). Note for Headache/: headaches been for 5 weeks-- up back of neck and around the head- she is still seeing dr Bang for stress and anxiety-- she has been taking 2 ibuprofen and 0.5 mg of ativan and this sometimes helps- no focal weakness or numbness- no vision change-- her neck does hurt-- her cancer is in remission- she hasnt been following her dm or chol - but she has lost 100 pounds with her cancer- she saw a graphic art sales representative in [facility] for her tachycardia and they told her she checked out okEncounter Diagnosis: Headache (784.0), Hyperlipidemia, Mixed (272.2), Diabetes, Type II, controlled (250.00), Fatigue (780.79) [facility] Office Visit On: 02-Dec-2006 7:14 Encounter Diagnosis: Unspecified Diagnosis End: 02-Dec-2006 8:00 [facility] Historical Summary On: 03-Oct-2006 11:41 [facility] End: 03-Oct-2006 11:44 Office Visit On: 15-Aug-2006 17:15 [facility] End: 16-Aug-2006 6:59 Office Visit On: 21-Jun-2006 11:29 Encounter Reason: Back pain - The onset of the pain has been gradual and has been occurring for 1 weeks. The course has been constant. The pain is characterized as stabbing. The pain is described as being located in the End: 21-Jun-2006 17:56 lower back. The pain radiates to the upper abdomen. There are no precipitating factors. The symptoms have no aggravating factors. The symptoms have no relieving factors. Note for Back pain: just came on in lower thoracic area - no associated falls pain has gotten progressively worse, [ADDITIONAL REASON] Numbness and tingling - The onset of the numbness and tingling has been sudden a nd has been occurring in a persistent pattern for 3 days. The course has been increasing. The numbness and tingling is described as moderate. Note for Numbness and tingling: stomach, legs and feet- th samantha symptoms more like a week ago has no control of both legs r>l and subsequently had a fall on tuesday and hit her head- she did not pass out- fell she is not sure why- but didnt get dizzy- still has a headache on left parietal area although states this is getting better- did sprain her left ankle as well - did not lose bladder control but lost bladder control [facility] Office Visit On: 06-Jun-2006 16:27 Encounter Reason: Follow up, Diagnostic Procedure Results - Diagnostic tests include other (24 hr holter monitor) and ECHO. Note for Follow up, Diagnostic Procedure Results: reviewed the holter which showed rare pvcs a End: 06-Jun-2006 20:59 nd pacs, and episode of sinus tachycardia with rate of 140 with associated sx- also the echo showed a possible ASD and MVP- we discussed both of these in detail and SBE prophylaxis, also the need for TERESE and why., [ADDITIONAL REASON] Follow up for chronic medical issues - The patient feels well with minor complaints. Patient has been compliant with instructions. The medical issues the patient is following up for include blood sugar issues ,depression ,high blood pressure and high cholesterol. other: (not monitoring blood sugars at home.). , [ADDITIONAL REASON] Follow up, Laboratory Test Results - Lab results: abnormal blood lipids. 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
--- OUTSIDE RECORDS SUMMARY | 2018-10-21 22:17 | XMS RPT_ITS | Continuity of Care Document ---
:1965 Author Organization [facility] Address [facility] [address] [place] [address] Phone Care Team Providers Name Role Phone [...] Quantity: 60 {Tablet} Refills: 3 Ordered:19-May-2018 Long VOLTAGE INSPECTOR, Amelia L Start : 21-Oct-2017 End : [...] : 05-Jun-2018 End : 05-Jul-2018 Inactive ERGOCALCIFEROL, 35784LEED (Oral Capsule) 1 (one) Capsule Capsule twice [...] days Quantity: 15 {Tablet} Refills: 0 Ordered:19-May-2018 Cipriano ALBRIGHT Amelia Marquez Start : 24-Apr-2013 End : 19-May-2018 Inactive LISINOPRIL, 2.5MG (Oral Tablet) 1 Tablet qd for 30 days Refills: 0 Ordered:28-Nov-2009 Isabella Grigsby Start : 28-Nov-2009 End : 28-Dec-2009 Inactive LISINOPRIL, 5MG (Oral Tablet) 1 Tablet qd for 30 days Quantity: 30 {Tablet} Refills: 0 Ordered:05-Jul-2011 Delisa Melendze LPN Start : 05-Jul-2011 End : 04-Aug-2011 [...] : 23-Jul-2011 End : 02-Aug-2011 Inactive MAXITROL, 3.5-07359-6.1 (Ophthalmic Ointment) apply to eye lids as [...] hs (50 MG) Inactive Comments:Dr. Hankins NYSTATIN, 055150KGQH/ML (Mouth/Throat Suspension) 5cc Suspension 5 times daily [...] Quantity: 30 {Tablet} Refills: 0 Ordered:19-May-2018 Long VOLTAGE INSPECTOR, Amelia L Start : 12-May-2012 End : 19-May-2018 Discontinued Comments:This order discontinued per [facility]. ZOFRAN ODT, 4MG (Oral Tablet Dispersible) qd prn nausea (4 MG) End : 08-Aug-2015 Discontinued Comments:[facility] Allergies and Adverse Reactions Name Dates Details [...] and Lateral Result: Comments: See Note; NOTES: [facility] Imaging Services [address] [place] [address] Chest PA and Lateral MR#: [id number] Acct: [id number] Name: IFEOMA ASHRAF Rep #: [id number] : 1965 F 53 From: Dimitris Valderrama DO PCP: Sangeetha Irvin DO Status: REG CLI Study: Chest PA and Lateral Date of Exam: 07/14/18 Exam# [id number] Ordering Dr: Oscar Todd SALESPERSON BURIAL PLOTS-C STUDY: X-RAY CHEST REASON FOR EXAM: Female, [...] Dimitris Valderrama DO at 8:47 EDT Tel [phone], Service support , CC: NUNU Todd; Sangeetha Irvin DO Line Prep Cook: Signed 10-Jun-2018 Pacemaker Check Result: Comments: See Note; NOTES: [facility] [address] [place] [address] Pacemaker Check Date of Service: 06/09/18 09 MR#: [id number] Acct: [id number] Name: IFEOMA ASHRAF Rep #: [id number] : 1965 From: Danica Pickering Age/Sex: 53/F Location: [facility] Status: Signed Billing Codes ICD Device Billing: ICD Dev Prog Eval, Single 06/09/18 09 <Elec tronically signed by Danica Pickering > Date Danica Pickering 06/10/18 1406<Electronically signed by Boone Ch MD> Cosigner Signat ure: Date (if applicable) Boone Ch MD CC: 08-Jun-2018 Cardiology Visit Report Result: Comments: See Note; NOTES: [facility] [address] [place] [address] OFFICE VISIT Date of Service: 05/31/18 MR#: [id number] Acct: [id number] Name: IFEOMA ASHRAF Rep #: [id number] : 1965 Provider: NUNU Todd Age/Sex: 53/F Location: [facility] Status: Signed with Addenda ADDENDUM by NUNU Todd on 06/01/18 at 0746 Addendum entered and electronic ally signed by LUPE Black 06/01/18 07:46: Patient's outside records from [facility] admission from 04/07/2018 to 04/27/2018 were [...] ultimately discharged home with requested follow-up with [facility] neurology or local neurolo gist in approximately [...] defibrillator (ICD) Z95.810 Generator change 11/13 @ [facility] LUPE Chapman Pacemaker check in February 2018 [...] prior to saving. Follow Up 6 Months (COMPUTER CONSULTANT) 05/31/18 (GIUSEPPE) 06/01/18 0747 <Electronically signed by [...] ral regurgitation and tricuspid regurgitation. She presented [facility] on March 08, 2018 after being found unresponsive in her bathroom. During this hospitalization she was found to have an acute left axillary and left brachial vein DVT and was started on Eliquis. She presented to [facility] emergency department in March 2018 for altered mental status. Her CT scan prior to ER visit showed possible hygroma versus subacute resolving subdural hematoma. She was transferred to [facility] for further evaluation. These records are [...] Rate 100 Intake Visit Reasons: [facility] to [facility] to [facility] to [place] Allergies amitriptyline Adverse Reaction (Severe, Verified 05/31/18 [...] meq PO DAILY #30 tab 05/31/18 [Rx] [facility] Medical History Nonrheumatic mitral (valve) insufficiency [...] rter-defibrillator (ICD) Z95.810 Generator change 11/13 @ [facility] LUPE Chapman Pacemaker check in February 2018 [...] prior to saving. Follow Up 6 Months (COMPUTER CONSULTANT) 05/31/18 (GIUSEPPE) Coding Level of Care Code [...] 1556 <Electronically signed by Oscar ANDRADE> Date [facility] Peyton griffin Signature: Date (if applicable) CC: Sangeetha Irvin DO 05-Jun-2018 Oncology Visit Report Result: Comments: See Note; NOTES: [facility] [address] [place] [address] OFFICE VISIT Date of Service: 06/05/18 1314 MR#: [id number] Acct: [id number] Name: TYLOR ASHRAF Rep #: [id number] : 1965 From: Simeon Gresham MD Age/Sex: 53/F Location: [facility] Status: Signed Subjective - Date of Service Date of Service:: 06/05/18 - Chief Complaint Follow up DLBCL - His tory of Present Illness 53-year-old woman was diagnosed with non-Hodgkin's lymphoma, diffuse large B cell, stage IV of the uterine cervix with DAIRY INSPECTOR/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 She had [...] stem cell transplant in February 2007 at [facility] with complete remission. She is on observation, [...] Chronic Code Visit Office Visits / Consults: 92525 OV L3 Est 1325 <Electronically signed by Simeon Gresham MD> Date Simeon Pacheco Signature: Date (if applicable) CC: 26-May-2018 Venous Duplex Upper Extremity Result: Comments: See Note; NOTES: [facility] Cardiovascular Services [address] [place] [address] Venous Duplex US, Unilateral 05/25/18 0903 MR#: [id number] Acct: [id number] Name: IFEOMA SILVA Rep #: [id number] : 1965 53 From: Juanjo Russo MD [...] Dictated: 05/25/18 0903 Date Transcribed: 05/26/18 163 Line Prep Cook: Signed 06-Apr-2018 Chest 1 View (Portable) Result: Comments: See Note; NOTES: [facility] Imaging Services [address] [place] [address] Chest 1 View (Portable) MR#: [id number] Acct: [id number] Name: MARIOWAQASIFEOMA Ashok Rep #: : 1965 F 53 From: Levy Lucas DO PCP: Sangeetha Irvin DO Status: PRE ER Study: Chest 1 View (Portable) Date of Exam: 04/06/18 Exam# [id number] Ordering Dr: Dejuan Bacon MD STUDY: X-RAY [...] , CC: Sangeetha Irvin DO; Dejuan Bacon Line Prep Cook: Signed 05-Apr-2018 Brain/Head without Contrast Result: Comments: See Note; NOTES: [facility] Imaging Services [address] [place] [address] Brain/Head without Contrast MR#: [id number] Acct: [id number] Name: IFEOMA ASHRAF Rep # : [id number] : 1965 F 53 From: Levy Lucas DO PCP: Sangeetha Irvin DO Status: REG CLI Study: Brain/Head without Contrast Date of Exam: 04/05/18 Exam# [id number] Ordering Dr: Oscar Bartlett MD STUDY : [...] 14:06 EDT Tel , Service support 1- [phone], N.B. : The above information has been verbally conveyed by Levy Lucas DO to connected , Covering Physician, on 04/05/2018 14:06:03 (ET). CC: Sangeetha Irvin DO; Oscar Bartlett MD Line Prep Cook: Signed 05-Apr-2018 Brain/Head without Contrast Result: Comments: See Note; NOTES: [facility] Imaging Services [address] [place] [address] Brain/Head without Contrast MR#: [id number] Acct: [id number] Name: IFEOMA ASHRAF Rep # : [id number] : 1965 F 53 From: Levy Lucas DO PCP: Sangeetha Irvin DO Status: REG CLI Study: Brain/Head without Contrast Date of Exam: 04/05/18 Exam# [id number] Ordering Dr: Oscar Bartlett MD STUDY : [...] 14:06 EDT Tel , Service support 1- [phone], N.B. : The above information has been verbally conveyed by Levy Lucas DO to connected , Covering Physician, on 04/05/2018 14:06:03 (ET). CC: Sangeetha Irvin DO; Oscar Bartlett MD Line Prep Cook: Signed 31-Mar-2018 Cardiology Visit Report Result: Comments: See Note; NOTES: [facility] [address] [place] [address] OFFICE VISIT Date of Service: 03/31/18 MR#: [id number] Acct: [id number] Name: Ifeoma Ashraf Rep #: [id number] : 1965 Provider: Boone Ch MD Age/Sex: 53/F Location: [facility] Status: Signed HPI HPI Chief Complaint: Follow-up [...] who presented to the emergency department at [facility] on 03/08/2018 aft er being found unresponsive [...] care unit. She was eventually transferred to [facility]. Her major problem at this time is [...] Lt brachial Intake Visit Reasons: DC to [facility] 03-14 Tray Room Worker Required: No Accompanied by: mother Is patient [...] therapy. I would like to obtain a lab pack chemist ry profile to be able to appropriately adjust any diuretics. At this juncture it may be prudent to add Lasix 40 mg a day to her current regimen. 2. Presence of implantable cardioverter-defibrillator (I CD) Z95.810 Generator change 11/13 @ [facility] Dr. Ahmadi Plan She does have an [...] months. 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 Services [address] [place] [address]. [place] [address] OFFICE VISIT Date of Service: 11/17/17 MR#: [id number] Acct: [id number] Patient: IFEOMA ASHRAF Rep #: [id number] : 1965 Provider: Danica Pickering Age/Sex: 52/F Location: [facility] Status: Signed Comments Summary Comments: Wound Check: [...] n office Interview Reason: scheduled follow up Seed Packer: [employer] Name: Lan PRO Model: [id number] Serial #: [id number] Implant Date: 11/10/17 Year(s): 0 Implant Physician: [...] and No drainage Bibiana ds Lead #1 Seed Packer Lead 1: [employer]. [employer] Model Lead 1: 7121Q/58 Serial# Lead 1: [id number] Date Implanted Lead 1: 10/10/09 Position Lead [...] in other diseases classified elsewhere I43 11/17/17 6350 <Electronically signed by Danica Pickering > Date Danica Pickering 11/18/17 0813<Electronically signed by Noe Morris MD> Cosigner Signature: Date (if applicable) Noe Morris MD CC: 10-Nov-2017 Operative Report Result: Comments: See Note; NOTES: [facility] Medical Records Department [address] [place] [address] Operative Report 11/10/17 1148 MR#: [id number] Acct: [id number] Name: SALOME ASHRAF Rep #: [id number] : 1965 52 From: Lior Ahmadi MD PCP: Sangeetha Irvin DO Status: REG [facility] Y Location: [facility] Operative Report Date of Procedure: 11/10/17 Preoperative diagnosis is device at end of life for normal battery depletion. Postoperative diagnosis same as above. After informed consent and IV antibiotics the patient was brought to the [facility] and the ski n over [...] chart documents provided by the device company visitor services representative procedure summary. 11/10/17 1150 <Electronically signed by Lior Ahmadi MD > Date Lior Ahmadi MD CC: Sangeetha Irvin DO; Lior Ahmadi MD Signed 03-Nov-2017 Office Visit Report Result: Comments: See Note; NOTES: [facility] [address] [facility] [place] [address] OFFICE VISIT Date of Service: 11/03/17 MR#: [id number] Acct: [id number] Patient: IFEOMA ASHRAF Rep #: [id number] : 1965 Provider: Danica Pickering Age/Sex: 52/F Location: [facility] Status: Signed Comments Summary Comments: Written and [...] in office Interview Reason: routine follow up Seed Packer: [employer] Name: Current VR Model: 1211-36Q ICD Serial #: [id number] Implant Date: 10/10/09 Year(s): 8 Implant Physician: [...] Model Lead 1: 7121Q/58 Serial# Lead 1: [id number] Date Implanted Lead 1: 10/10/09 Position Lead [...] 11/03/17 1648<Electronically signed by Boone Ch MD> [employer] [facility] Signature: Date (if applicable) Boone Ch MD CC: 03-Nov-2017 Cardiology Visit Report Result: Comments: See Note; NOTES: [facility] [place] [address] OFFICE VISIT Date of Service: 11/03/17 MR#: [id number] Acct: [id number] Name: IFEOMA ASHRAF Rep #: [id number] : 1965 Provider: Boone Ch MD Age/Sex: 52/F Location: [facility] Status: Signed HPI HPI Details: IFEOMA ASHRAF, [...] 25 to 29 (25% per echo 03/11/2015) [facility] Medical History Type 2 diabetes mellitus [...] of automatic cardioverter/defibrillator (AICD) Z95.810 10/06/2009 @ [facility] Plan She is status post ICD implantation [...] was also being followed up at the [facility]. She is also on spironolactone and sh [...] and Lateral Result: Comments: See Note; NOTES: [facility] Imaging Services [address] [place] [address] Chest PA and Lateral MR#: [id number] Acct: [id number] Name: IFEOMA ASHRAF Rep #: [id number] : 1965 F 52 From: Dimitris Valderrama DO PCP: Sangeetha Irvin DO Status: PRE [facility] Study: Chest PA and Lateral Date of Exam: 11/03/17 Exam# [id number] Ordering Dr: Boone Ch MD STUDY: X-RAY [...] Dimitris Valderrama DO at 18:21 EST Tel [phone], Se rvice support , CC: Boone Ch MD; Sangeetha Irvin DO Line Prep Cook: Signed 14-Oct-2017 Office Visit Report Result: Comments: See Note; NOTES: [facility] Services [address] [place] [address]. [place] [address] OFFICE VISIT Date of Service: 10/12/17 MR#: [id number] Acct: [id number] Patient: IFEOMA ASHRAF Rep #: [id number] : 1965 Provider: Danica Pickering Age/Sex: 52/F Location: [facility] Status: Signed Comments Summary Comments: Single Chamber ICD Evaluation: Interrogation shows No VT/VF episodes since . No Alerts noted. Left pectoral pocket/incision w/o s/s of infection or erosion. Pt offers no cardiac complaints. Presenting rhythm shows Sinus Tachycardia @ 105 bpm. Left pectoral pocket/incision w/o s/s of infection or erosion. GREENS LABORER=0%. Battery longevity approx 2.9 mos. At device check in June device showed longevity of 14 mos. D/T longevity decreasing quickly pt scheduled for ICD generator el gilliam with Dr. Ahmadi on 11/10/17 @ [facility]. Lead impedances, sensing and pace/sense threshold remain stable. No parameter changes made. Counters cleared. Pt scheduled for o.v and teaching on 11/03/17 and ICD g enerator change on 11/10/17. Device Device Date Interviewed: 10/12/17 Follow- up Location: in office Interview Reason: routine follow up Seed Packer: 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 Model Lead 1: 7121Q/58 Serial# Lead 1: [id number] Date Implanted Lead 1: 10/10/09 Position Lead [...] IV Contrast Result: Comments: See Note; NOTES: [facility] Imaging Services [address] [place] [address] Abdomen WITH IV Contrast MR#: [id number] Acct: [id number] Name: IFEOMA ASHRAF Rep #: [id number] : 1965 F 52 From: Carl Vincent MD PCP: Sangeetha Irvin DO Status: REG CLI Study: Abdomen WITH IV Contrast Date of Exam: 06/15/17 Exam# [id number] Ordering Dr: Analisa Conway MD STUDY: CT [...] CC: Analisa Conway MD; Sangeetha Irvin DO Line Prep Cook: Signed 15-Jun-2017 Spine Cervical without Contras Result: Comments: See Note; NOTES: [facility] Imaging Services [address] [place] [address] Spine Cervical without Contras MR#: [id number] Acct: [id number] Name: IFEOMA ASHRAF p #: [id number] : 1965 F 52 From: Zev Mandujano MD PCP: Sangeetha Irvin DO Status: REG CLI Study: Spine Cervical without Contras Date of Exam: 06/15/17 Exam# [id number] Ordering Dr: Analisa Conway MD STUDY: CT [...] CC: Analisa Conway MD; Sangeetha Irvin DO Line Prep Cook: Signed 10-Feb-2017 Spine Lumbar without Contrast Result: Comments: See Note; NOTES: [facility] Imaging Services [address] [place] [address] Verdana 4d Spine Lumbar without Contrast MR#: [id number] Acct: [id number] Name: MARIOWAQASMARISEL Pulido Rep #: [id number] : 1965 F 51 From: Brian Gill MD PCP: Sangeetha Irvin DO Status: REG CLI Study: Spine Lumbar without Contrast Date of Exam: 02/10/17 Exam# [id number] Ordering Dr: Analisa Carr i, MD STUDY: [...] CC: Analisa Conway MD; Sangeetha Irvin DO Line Prep Cook: Signed 20-Jan-2017 Liver Result: Comments: See Note; NOTES: [facility] Imaging Services [address] [place] [address] Zach 4d Liver MR#: [id number] Acct: [id number] Name: IFEOMA ASHRAF Rep #: [id number] : 1965 F 51 From: Vincent Bui DO PCP: Sangeetha Irvin DO Status: REG CLI Study: Liver Date of Exam: 01/20/17 Exam# [id number] Ordering Dr: Sangeetha Irvin DO STUDY: ABDOMINAL ULTRASOUND - RIGHT UPPER QU ADRANT REASON FOR VISIT: Female, 51 years old. Fatty liver TECHNIQUE: Ultrasound evaluation of the right upper quadrant was performed with real-time and static andarde-scale imaging. TECHNICAL QUALITY: Adequate. COMPARISON: None. FINDINGS: [...] Vincent Bui DO at 23:43 EDT Tel [phone], Service support , CC: Sangeetha Irvin DO Line Prep Cook: Signed 20-Jan-2017 Thyroid Result: Comments: See Note; NOTES: [facility] Imaging Services [address] [place] [address] Verdana 4d Thyroid MR#: [id number] Acct: [id number] Name: IFEOMA ASHRAF Rep #: [id number] : 1965 F 51 From: Jin Rolon PCP: Sangeetha Irvin DO Status: REG CLI Study: Thyroid Date of Exam: 01/20/17 Exam# [id number] Ordering Dr: Sangeetha Irvin DO STUDY: THYROID [...] dimension. Subcentimeter cysts right lobe. Electronically Signed: iJn Rolon MD at 5:31 EDT , Service support , CC: Sangeetha Irvin DO Line Prep Cook: Signed 17-Nov-2016 Dexa Bone Density Study (HP) Result: Comments: See Note; NOTES: [facility] Imaging Services [address] [place] [address] Verdana 4d Dexa Bone Density Study (HP) MR#: [id number] Acct: [id number] Name: COL HARPAL ASHRAF Rep #: [id number] : 1965 F 51 From: Prashant Delgadillo MD PCP: Sangeetha Irvin DO Status: REG CLI Study: Dexa Bone Density Study (HP) Date of Exam: 11/17/16 Exam# [id number] Ordering Dr: Sangeetha Irvin DO STUDY: DUAL [...] Prashant Delgadillo MD at 10:52 EST Tel [phone], Service support [phone], CC: Sangeetha Irvin DO Line Prep Cook: Signed 17-Nov-2016 SCREENING MAMM (CAD), BILAT Result: Comments: See Note; NOTES: [facility] Imaging Services [address] [place] [address] Verdana 4d SCREENING MAMM (CAD), BILAT MR#: [id number] Acct: [id number] Name: SALOME ASHRAF Rep #: [id number] : 1965 F 51 From: Prashant Delgadillo MD PCP: Sangeetha Irvin DO Status: [facility] CLI Study: SCREENING MAMM (CAD), BILAT Date of Exam: 11/17/16 Exam# [id number] Ordering Dr: Gary Irvin DO MAMMOGRAPHY - [...] biopsy of a clinically suspiciou s abnormality. [id number] Electronically Signed: Prashant Delgadillo MD at 12:55 EST Tel [phone], Service support [phone], CC: Sangeetha Irvin DO Line Prep Cook: Signed 17-Nov-2016 SCREENING MAMM (CAD), BILAT Result: Comments: See Note; NOTES: [facility] Imaging Services [address] [place] [address] Verdana 4d SCREENING MAMM (CAD), BILAT MR#: [id number] Acct: [id number] Name: SALOME ASHRAF Ashok Rep #: [id number] : 1965 F 51 From: Prashant Delgadillo MD PCP: Sangeetha Irvin DO Status: REG CLI Study: SCREENING MAMM (CAD), BILAT Date of Exam: 11/17/16 Exam# [id number] Ordering Dr: Gary Irvin DO ADDENDUM by [...] delay biopsy of a clinically suspicious abnormality. [id number] Electronically Signed: Prashant Delgadillo MD at 13:07 EST Tel [phone], Service support [phone], 11/17/16 1314 Date cc: Sangeetha Irvin DO * Signed [...] delay biopsy of a clinically suspicious abnormality. [id number] Electronically Signed: Prashant Delgadillo MD at 12:55 EST Tel [phone], Ser vice support [phone], CC: Sangeetha Irvin DO Line Prep Cook: Signed 19-Dec-2015 Liver Result: Comments: See Note; NOTES: [facility] Imaging Services [address] [place] [address] Verdana 4d Liver MR#: [id number] Acct: [id number] Name: IFEOMA ASHRAF Rep #: [id number] : 1965 F 50 From: Ziggy Santos MD PCP: Sangeetha Irvin DO Status: REG CLI Study: Liver Date of Exam: 12/19/15 Exam# [id number] Ordering Dr: Sangeetha Irvin DO STUDY: ABDOMINAL [...] at 10:55 EDT Tel , Service support , CC: Sangeetha Irvin DO Line Prep Cook: Signed 19-Dec-2015 Thyroid Result: Comments: See Note; NOTES: [facility] Imaging Services [address] [place] [address] Verdana 4d Thyroid MR#: [id number] Acct: [id number] Name: IFEOMA ASHRAF ep #: [id number] : 1965 F 50 From: Ziggy Santos MD PCP: Sangeetha Irvin DO Status: REG CLI Study: Thyroid Date of Exam: 12/19/15 Exam# [id number] Ordering Dr: Sangeetha Irvin DO STUDY: THYROID [...] at 10:56 EDT Tel , Service support [phone], CC: Sangeetha Irvin DO Line Prep Cook: Signed 14-Aug-2015 Bilat Scrn Digital AND CAD Result: Comments: See Note; NOTES: [facility] Imaging Services [address] [place] [address] Verdana 4d Bilat Scrn Digital AND CAD MR#: [id number] Acct: [id number] Name: IFEOMA ASHRAF Rep #: [id number] : 1965 F 50 From: Prashant Delgadillo MD PCP: Sangeetha Irvin DO Status: REG CLI Study: Bilat Scrn Digital AND CAD Date of Exam: 08/14/15 Exam# [id number] Order ing Dr: Sangeetha Irvin DO MAMMOGRAPHY [...] Prashant Delgadillo MD at 10:49 EST Tel [phone], Service support [phone], CC: Sangeetha Irvin DO Line Prep Cook: Signed 10-Mar-2015 Emergency Department Summary Result: Comments: See Note; NOTES: [facility] Medical Records Department [address] [place] [address] Emergency Department Summary MR#: [id number] Acct: [id number] Name: IFEOMA RASMUSSEN Rep #: [id number] : 1965 49 From: Mayito Roldan DO [...] way. Mayito Roldan DO T: NTS JOB: [id number] 03/10/15 2329 <Electronically signed by Mayito Roldan DO> Date Rosious Grecocarmelo DAVIS CC: Sangeetha Irvin DO Date Dictated: 02/28/15824 Date Transcribed: 02/28/15824 Line Prep Cook: Signed 02-Mar-2015 Emergency Department Summary Result: Comments: See Note; NOTES: [facility] Medical Records Department [address] [place] [address] Emergency Department Summary MR#: [id number] Acct: [id number] Name: IFEOMA RASMUSSEN Rep #: [id number] : 1965 49 From: Alejandro Lopez DO [...] The patient has plans to go to [facility] on General. I will give her local surgeon's name if she wants to speak with them or she can certainly also speak with Dr. Irvin. CLINICAL IMPRESSION: Biliary colic. Alejandro Lopez DO T: ROCK JOB: [id number] 03/02/1543 <Electronically signed by Alejandro Lopez DO> Date Alejandro Lopez DO CC: Sangeetha Irvin DO Date Dictated: 718 Date Transcribed: 02/28/15718 Line Prep Cook: Signed 28-Feb-2015 Discharge Instruction Result: Comments: See Note; NOTES: [facility] Medical Records Department [address] [place] [address] Discharge Instruction 02/28/15638 MR#: [id number] Acct: [id number] Name: IFEOMA ASHRAF Rep #: [id number] : 1965 49 From: Alejandro Lopez DO [...] problems, contact your doctor. Call [facility] ([phone]) or report to the closest ergency Room. Call 911 if necessary. 02/28/15639 <Electronically signed by Alejandro Lopez DO> Date Alejandro Lopez DO Cosign er Signature (If Indicated): Date CC: Sangeetha Irvin DO 28-Feb-2015 Gallbladder Result: Comments: See Note; NOTES: [facility] Imaging Services [address] [place] [address] Ultrasound Report MR#: [id number] Acct: [id number] Name: IFEOMA ASHRAF Rep #: [id number] : 1965 F 49 From: Prashant Delgadillo MD PCP: Sangeetha Irvin DO Status: REG ER Study: Gallbladder Date of Exam: 02/28/15 Exam# [id number] Ordering Dr: Alejandro Lopez DO STUDY: ABDOM [...] Prashant Delgadillo MD at 8:15 EDT Tel [phone], Service support [phone], CC: Alejandro Lopze DO; Sangeetha Irvin DO Line Prep Cook: Signed 11-Feb-2015 Spine Cervical without Contras Result: Comments: See Note; NOTES: [facility] Imaging Services [address] [place], [place] [address] [address] CAT Scan Report MR#: [id number] Acct: [id number] Name: IFEOMA ASHRAF Rep #: [id number] : 1965 F 49 From: Prashant Delgadillo MD PCP: Sangeetha Irvin DO Status: REG CLI Study: Spine Cervical without Contras Date of Exam: 02/11/15 Exam# [id number] Ordering Dr: Analisa Conway MD STUDY: CT [...] Prashant Delgadillo MD at 9:49 EDT Tel [phone], Service support [phone], CC: Analisa Conway MD; Sangeetha Irvin DO Line Prep Cook: Signed 18-Jul-2014 Bilat Scrn Digital & CAD Result: Comments: See Note; NOTES: [facility] Imaging Services [address] [place] [address] Breast Imaging Report MR#: [id number] Acct: [id number] Name: IFEOMA ASHRAF Rep # : [id number] : 1965 F 49 From: Prashant Delgadillo MD PCP: Sangeetha Irvin DO Status: REG CLI Exam# [id number] Ordering Dr: Sangeetha Irvin DO MAMMOGRAPHY - [...] Prashant Delgadillo MD at 8:36 EDT Tel [phone], [employer] support [phone], CC: Sangeetha Irvin DO Line Prep Cook: Signed 18-Jul-2014 Liver Result: Comments: See Note; NOTES: [facility] Imaging Services [address] [place] [address] Ultrasound Report MR#: [id number] Acct: [id number] Name: IFEOMA ASHRAF Rep #: [id number] : 1965 F 49 From: Prashant Delgadillo MD PCP: Sangeetha Irvin DO Status: REG CLI Study: Liver Date of Exam: 07/18/14 Exam# [id number] Ordering Dr: Sangeetha Irvin DO STUDY: ABDOMINAL [...] Prashant Delgadillo MD at 9:34 EDT Tel [phone], Service support [phone], CC: Sangeetha Irvin DO Line Prep Cook: Signed 18-Jul-2014 Thyroid Result: Comments: See Note; NOTES: [facility] Imaging Services [address] [place] [address] Ultrasound Report MR#: [id number] Acct: [id number] Name: IFEOMA ASHRAF Rep #: [id number] : 1965 F 49 From: Prashant Delgadillo MD PCP: Sangeetha Irvin DO Status: REG CLI Study: Thyroid Date of Exam: 07/18/14 Exam# [id number] Ordering Dr: Sangeetha Irvin DO STUDY: THYROID [...] Delgadillo MD at 8:41 EDT T el [phone], Service support [phone], CC: Sangeetha Irvin DO Line Prep Cook: Signed 05-Feb-2014 Brain/Head W/WO Contrast Result: Comments: See Note; NOTES: [facility] Imaging Services [address] [place] [address] CAT Scan Report MR#: [id number] Acct: [id number] Name: IFEOMA ASHRAF Rep #: [id number] : 1965 F 48 From: Prashant Delgadillo MD PCP: Sangeetha Irvin DO Status: REG CLI Study: Brain/Head W/WO Contrast Date of Exam: 02/05/14 Exam# [id number] Ordering Dr: Fast, Sangeetha DO STUD Y: [...] Prashant Delgadillo MD at 9:19 EDT Tel [phone], Service support [phone], CC: Sangeetha Irvin DO Line Prep Cook: Signed Immunization Name Dates Details Influenza (3 years and up) on: 10-Jul-2008 Comments: injection given in left deltoid, pt tolerated welllot # [id number] Influenza (3 years and up) on: 09-Jul-2009 Comments: Lot #[id number]-right deltoidDose0.5mlgiven by Juventino Nye LPN Family History [...] kg/m2 Body Surface Area Calculated 2.02 m2 04-Cgh-023806:59 Temperature 97.9 f Comments: Method: Temporal Pulse [...] W/Diff, Automated Comments: BMP TO DULCE [facility].CBCD, TSH, B12 TO DR. SANGEETHA IRVIN.[facility] Nzjurcgzjr3582 [facility] [place], [address] Absolute Lymph 1.16 {X10_3/ul} (Normal) Range: 0.83-4.51 [...] 4.2-5.4 WBC 8.0 K/mm3 (Normal) Range: 4.4-11.0 52-Cux-42977:22 Vitamin B12 659 pg/mL (Normal) Comments: BMP TO [facility].CBCD, TSH, B12 TO DR. SANGEETHA IRVIN.[facility] Dlxsbiiwly1339 [place], [place], [address] Range: 211-911 73-Oml-23827:20 Basic Metabolic Profile (BMP) Comments: BMP TO [facility].CBCD, TSH, B12 TO DR. SANGEETHA IRVIN.[facility] Nvxnogbxsx8843 [place], [address] GAP 9 (Normal) Range: 5-15 [...] A.D.A. criteria.Please note revised GLUCOSE reference range lrubcrrmf14/02/2018. 15-Fed-87973:20 Thyroid Stim Hormone (TSH) Comments: BMP TO DULCE TIMMONS.CBCD, TSH, B12 TO DR. SANGEETHA IRVIN.[facility] Uhqfcbgvjr0950 [facility] [address]. [place], [place], [address] TSH 4.09 {uIU/mL} (Abnormal) Range: 0.358-3.74 61-Erj-049732:23 Basic Metabolic Profile (BMP) Comments: [facility] Egbwzseiba4612 [facility]. [place], [place], [address] GAP 7 (Normal) Range: 5-15 CO2 30.0 [...] A.D.A. criteria.Please note revised GLUCOSE reference range dfaoyinuw07/02/2018. 09-Xsv-390280:23 BNP,B-Type NATRIURETIC PEPTIDE Comments: [facility] Hmitzwdvso4808 [facility] [address] [place], [place], [address] B-TYPE JACKIE PEP 892.7 pg/mL (Abnormal) Range: 0-100 80-Zla-015016:23 CBC W/Diff, Automated Comments: [facility] Xoglqgeqqd5494 [facility] [address] [place], [place], [address] Absolute Lymph 1.23 {X10_3/ul} (Normal) Range: 0.83-4.51 [...] 4.2-5.4 WBC 7.2 K/mm3 (Normal) Range: 4.4-11.0 09-Ggm-733278:41 CBC W/Diff, Automated Comments: Reason for Laboratory Test .[facility] Su[address]akwixa[address] [place], [place], [address] Absolute Lymph 0.85 {X10_3/ul} (Normal) Range: 0.83-4.51 [...] 4.2-5.4 WBC 5.7 K/mm3 (Normal) Range: 4.4-11.0 17-Fll-942243:41 Comprehensive Metabolic Profil Comments: Reason for Laboratory Test .Serial Specimen #1, #2 or #3? [facility] [address]zzovnqwvb9670 [place], [address] GAP 8 (Normal) Range: 5-15 CO2 28.0 [...] A.D.A. criteria.Please note revised GLUCOSE reference range lajjpuxlu87/02/2018. 74-Ogi-770196:41 LDH 224 U/L (Normal) Comments: Reason for Laboratory Test .Serial Specimen #1, #2 or #3? [facility] Leqpbraobm3373 [address] [place], [place], [address] Range: 84-246 1-Uhb-176617:41 URINE GENESIS CULTURE-IDENTIFICATN Comments: add to urine in lab; PATIENT NOT FASTINGPERFORMED BY: LabCo[address] [id number] Information: SRC: ([id number]) Result 1 ENTEAE (Abnormal) Comments: Enterobacter aerogenes1,000 [...] Range: 0.0-8.3 Comments: Khanh ECLIA methodologyPerformed at: [facility] LabCoMorristown Medical CenterTdpuyw9[address] [place] [id number] Director: Omar Hood PhD, Phone: [phone] :46 CBC W/Diff, Automated Comments: [facility] Olxtxeyopn4084 [address] [place], [place], [address] Absolute Lymph 0.95 {X10_3/ul} (Normal) Range: 0.83-4.51 [...] 4.2-5.4 WBC 5.6 K/mm3 (Normal) Range: 4.4-11.0 85-Kcc-45372:46 Comprehensive Metabolic Profil Comments: PLEASE ADD T3F T4F TO BLOOD FROM 05-25-[address] Jgfljnrbav0476 [facility] [place], [place], [address] GAP 9 (Normal) Range: 5-15 CO2 28.0 [...] A.D.A. criteria.Please note revised GLUCOSE reference range xdexdxbal50/02/2018. :46 Digoxin Level Comments: [facility] [address] [place], [place], [address] DIG 0.71 ng/mL (Abnormal) Range: 0.80-2.00 :46 Free T3 Comments: PLEASE ADD T3F T4F TO BLOOD FROM 05-25-[address] Leknqchcva1405 [facility] [address] [place], [place], [address] FREE T3 3.2 pg/mL (Normal) Range: 2.18-3.98 :46 Hemoglobin A1c Comments: [address] [place], [place], [address] HGB A1C 5.4 % (Normal) Range: 4.2-6.3 :46 Lipid Profile Comments: PLEASE ADD T3F T4F TO BLOOD FROM 05-25-[address] B[address]rntlejn10[address] [place], [place], [address] VLDL 22 mg/dL (Normal) Range: 5-40 LDL [...] High Risk :46 Microalb:Creat Ratio,Random UR Comments: [facility] Watljhgtcw3367 [place], [address] MALB:CREAT 7.8 {mg/g_CRE} (Normal) MICROALBUMIN,UR 10.9 mg/L (Normal) UR CREAT 139.00 mg/dL (Normal) :46 T4 Free Direct Comments: PLEASE ADD T3F T4F TO BLOOD FROM 05-25-[address] Czypjmqpho5309 [address] [place], [place], [address] T4 FREE DIRECT 1.11 ng/dL (Normal) Range: 0.76-1.46 :46 Thyroid Stim Hormone (TSH) Comments: PLEASE ADD T3F T4F TO BLOOD FROM 05-25-[address] Loieeffgmj0213 [place], [address] TSH 0.31 {uIU/mL} (Abnormal) Range: 0.358-3.74 :46 Urinalysis, Complete Comments: How was Urine Obtained? CLEAN [facility] Kqnmukdxxb7236 [place], [address] MUCUS, URINE 0 SEEN {/hpf} [...] :46 Vitamin B12 368 pg/mL (Normal) Comments: [facility] Ctfolcbsfc01[address] [place] [place], [address] Range: 211-911 28-Qou-46369:46 Vitamin D,25 Hydroxy Comments: [facility] Mgetzouzee5317 [place], [address] Vitamin D 25-OH 64.5 ng/mL (Normal) Range: 29.95-100.01 Comments: Vitamin D 25(OH) Status Range Deficiency <20 ng/mL (50nmol/L) Insuffciency 20 - 30 ng/mL (50 - 75 nmol/L) Sufficiency 30 - 100 ng/mL (75 - 250 nmol/L) Toxicity >100 ng/mL (>250 nmol/L) 00-Akk-963443:52 Urinalysis, Complete Comments: Order Date: 04/06/18Has pt arrived? YHow was Urine Obtained? [facility] Xhettjzcyk3560 [place], [address] HYALINE CAST 5-10 SEEN {/lpf} (Normal) [...] (Normal) CLARITY Cloudy (Normal) COLOR Yellow (Normal) 83-Rsg-509768:30 CBC W/Diff, Automated Comments: [facility] K[address]qvmvkrm4[address] [place], [place], [address] OVALOCYTE RARE (Normal) MACROCYTE 1+ (Normal) ANISO [...] 4.2-5.4 WBC 9.1 K/mm3 (Normal) Range: 4.4-11.0 53-Dci-563933:30 Comprehensive Metabolic Profil Comments: [facility] Gzudwsfuag03[address] [place], [place], [address] GAP 12 (Normal) Range: 5-15 CO2 30.0 [...] Comments: Please note revised GLUCOSE reference range mltapwxqw72/02/2018. 64-Hxn-267126:30 Lactic Acid Comments: Yes/No query for Sepsis Lactate Rule [facility] Zfmcakgsgk7375 [address] [place], [place], [address] LACTIC ACID 6.7 mmol/L (Abnormal) Range: 0.4-2.0 Comments: Critical Result(s) Called Lisa RIVERA at: 20:23: by: BRITTANY TORRES 57-Cnq-025954:30 Partial Thromboplast Time Comments: [facility] Aibidgqwic1682 [address] [place], [place], [address] PTT 41.3 s (Abnormal) Range: 24.1-36.2 74-Myk-645742:30 Prothrombin Time w/INR Comments: [facility] Bwpmjnciwc7417 [address] [place], [place], [address] INR 2.3 (Normal) PROTIME 25.6 s (Abnormal) Range: 11.7-14.9 93-Oae-699322:30 Troponin-I Comments: [facility] Tgrtutxear5[address] [place], [place], [address] TROPONIN-I 0.046 ng/mL (Abnormal) Comments: TROPONIN-I EXPECTED VALUES <0.045 Negative 0.045 - 0.590 Consistent with Cardiac Damage > OR = 0.600 Critical Value Not every elevated troponin is indicative of IN. T hesevalues should be used with clinical judgement in examiningthe patient's clinical picture for diagnosis. To establisha diagnosis of IN versus myocardial injury, there must be ademonstrated rise and/ or fall in the troponin values, inaddition to ischemic symptoms, EKG changes, new regionalwall motion abnormality, and/or angiographical evidence. PLEASE NOTE: REFERENCE RANGES EDITED 02/06/1805-Apr-201887-Gmn-636232:08 Ammonia Comments: [facility] Nbeymmrozo2046 [address] [place], [place], [address] AMMONIA 20.0 umol/L (Normal) Range: 11-32 05-Myo-178161:08 CBC-Complete Blood Cnt No Diff Comments: [facility] Ascsxiytai8723 [address] [place], [address] MPV 10.6 fL (Normal) Range: 6.2-12.0 PLT [...] 4.2-5.4 WBC 6.6 K/mm3 (Normal) Range: 4.4-11.0 05-Udp-962843:08 Comprehensive Metabolic Profil Comments: [facility] Mwfjqozdok6750 [place], [place], [address] GAP 9 (Normal) Range: 5-15 CO2 35.0 [...] Comments: Please note revised GLUCOSE reference range ymmrnphdw01/02/2018. 37-Pwk-346932:08 Differential Comment Comments: [facility] Kkvvbecjml15[address] [place], [place], [address] SMEAR COMMENT COMMENT (Normal) Comments: SLIDE SCANNED - 1+ ANISO NOTED. 24-Evj-44848:55 Urinalysis, Complete Comments: How was Urine Obtained? [facility]WM[facility] Bzmuubhgoj2091 [address] [place], [place], [address] AMORPHOUS 2+ (Normal) HYALINE CAST 5-10 SEEN [...] (Normal) :55 Urine Drug Screen (VISTA) Comments: [facility] Hgmajxmlbb6534 [address] [place], [place], [address] TO BE CONFIRMED (Normal) Comments: CONFIRMATORY TESTING [...] TESTING MUST BE ORDERED SEPARATELY. USE TESTMNEMONIC: ALCA :59 Bedside Glucose Comments: [facility] LaboratoryPoint of Hohw99[address] [place], [place] [address] BEDSIDE GLU 169 mg/dL (Abnormal) Range: 70-110 Comments: MANAGEMENT OF PATIENT CARE PER NURSING PROTOCOL :35 Basic Metabolic Profile (BMP) Comments: [facility] Kumxzrxdwj2739 [address] [place], [place], [address] GAP 16 (Abnormal) Range: 5-15 CO2 15.0 mmol/L (Abnormal) Range: 21.0-32.0 CL 104 mmol/L (Normal) Range: 98-107 K 6.2 mmol/L (Abnormal) Range: 3.5-5.1 Comments: Critical Result(s) Called at: 01:06:28 03/08/2018 by:ANSLEY STANFORD,STUDY ASSISTANT NA 135 mmol/L (Abnormal) Range: 136-145 CA [...] A.D.A. criteria.Please note revised GLUCOSE reference range /02/2018. 79-Wka-227987:59 Acetaminophen (Tylenol) Level Comments: [facility] Ahdfvoqbwt5[address] [place], [place], [address] ACETAMINOPHEN 4.9 ug/mL (Abnormal) Range: 10.0-30.0 Comments: Slight Icterus, Result may be falsely decreased. :59 Acetone Serum Comments: [facility] Qtlascimmr7591 [place], [address] ACETONE SERUM NEGATIVE (Normal) 65-Njy-234452:59 Alcohol, Blood (Medical)-Serum Comments: [facility] Cdetgmnsto0875 [place], [address] SERUM ETOH 8.0 mg/dL (Normal) Comments: The serum:whole blood ethanol ratio is approximately 1.14and varies slightly with hematocrit.Medical Alcohol reference interval and critical value innon-tolerant individuals; 50 - 100 Impairment 100 Intoxication 100 - 250 Severe Poisoning 250 - 400 Deep/possible fatal coma 12-Dll-949936:59 Digoxin Level Comments: [facility] [address] [place], [place], [address] DIG 0.32 ng/mL (Abnormal) Range: 0.80-2.00 31-Lqe-750683:59 Lactic Acid Comments: Yes/No query for Sepsis Lactate Rule [facility] Ecmehvndpr6169 [address] [place], [place], [address] LACTIC ACID 12.4 mmol/L (Abnormal) Range: 0.4-2.0 Comments: Critical Result(s) Called at: 00:52:58 03/08/2018 by:ANSLEY OWENSSTUDY ASSISTANT 24-Uqa-182960:59 Partial Thromboplast Time Comments: [place] [address] [place], [address] PTT 33.7 s (Normal) Range: 24.1-36.2 75-Vtn-005345:59 Prothrombin Time w/INR Comments: [place] [address] [place], [address] INR 2.4 (Normal) PROTIME 26.4 s (Abnormal) Range: 11.7-14.9 :59 Salicylate Comments: [place] [address] [place], [address] SALICYLATE < 1.7 mg/dL (Abnormal) Range: 2.8-20.0 Comments: Slight Icterus, Result may be falsely decreased. :02 Blood Gases by [facility] Comments: [place] [address] [place] [address] SO2 ISTAT 99 % (Normal) [...] TYPE ART (Normal) :52 Bedside Glucose Comments: [place] [address] [place] [address] BEDSIDE GLU 214 mg/dL (Abnormal) Range: 70-110 Comments: MANAGEMENT OF PATIENT CARE PER NURSING PROTOCOL 89-Frc-259727:37 Basic Metabolic Profile (BMP) Comments: [place] [address] [address] [place], [place], [address] GAP 19 (Abnormal) Range: 5-15 CO2 11.0 [...] A.D.A. criteria.Please note revised GLUCOSE reference range serkvtfkz48/02/2018. 69-Rgl-919200:37 CBC W/Diff, Automated Comments: [facility] Lehzrnimny3807 [address] [place], [place], [address] CRENATED RBC 1+ (Normal) ANISO 1+ (Normal) [...] K/mm3 (Normal) Range: 4.4-11.0 :37 Lipase Comments: [facility] [address]xf[address] [place] [address], [address] LIPASE 86 U/L (Normal) Range: 73-393 :37 Liver Profile Comments: [facility] L[address]vxjzul[address] [place] [address], [address] D BILI 1.07 mg/dL (Abnormal) Range: 0.00-0.30 T BILI 2.40 mg/dL (Abnormal) Range: 0.20-1.00 ALT 120 U/L (Abnormal) Range: 13-56 ALK P 94 U/L (Normal) Range: 45-117 AST 149 U/L (Abnormal) Range: 15-37 Comments: Moderate Hemolysis, Result may be falsely increased. GLOB 2.9 g/dL (Normal) Range: 2.2-4.2 ALB 3.0 g/dL (Abnormal) Range: 3.2-5.0 T PROT 5.9 g/dL (Abnormal) Range: 6.4-8.2 :37 Magnesium Comments: [facility] [address] [place], [address] MG 2.0 mg/dL (Normal) Range: 1.6-2.6 Comments: Moderate Hemolysis, Result may be falsely increased. :37 Troponin-I Comments: [facility] [address] [place], [address] TROPONIN-I 0.081 ng/mL (Abnormal) Comments: TROPONIN-I EXPECTED VALUES <0.045 Negative 0.045 - 0.590 Consistent with Cardiac Damage > OR = 0.600 Critical Value Not every elevated troponin is indicative of IN. T hesevalues should be used with clinical judgement in examiningthe patient's clinical picture for diagnosis. To establisha diagnosis of IN versus myocardial injury, there must be ademonstrated rise and/ or fall in the troponin values, inaddition to ischemic symptoms, EKG changes, new regionalwall motion abnormality, and/or angiographical evidence. PLEASE NOTE: REFERENCE RANGES EDITED 02/06/1824-Feb-20189-Isp-152776:21 CMV ANTIBODY (11026) Comments: today; PATIENT NOT FASTINGPERFORMED BY: Nveloped Wchluk8847 [facility] [id number] Cytomegalovirus (CMV) Ab, IgG <0.60 U/mL (Normal) Range: 0.00-0.59 Comments: Negative <0.60 Equivocal 0.60 - 0.69 Positive >0.69 5-Bhk-242490:21 HEPATITIS PANEL (74509) Comments: today; PATIENT NOT FASTINGPERFORMED BY: NvelopedPinon Health CenterHphofg5167 [facility] [id number] Hep C Virus Ab <0.1 {s/co_ratio} (Normal) Range: 0.0-0.9 Comments: Negative: < 0.8 Indeterminate: 0.8 - 0.9 Positive: > 0.9 . The CDC recommends that a positive HCV antibody result be followed up with a HCV Nucleic Acid Amplification test (447869). Hep B Core Ab, IgM Negative (Normal) HBsAg Screen Negative (Normal) Hep A Ab, IgM Negative (Normal) 9-Gkb-849332:21 EBV Panel (18835) Comments: today; PATIENT NOT FASTINGPERFORMED BY: REINALDO [facility] Pdhpov2697 [facility] [id number] Interpretation: SPRCS (Normal) Comments: EBV Interpretation Chart [...] <36.0 Equivocal 36.0 - 43.9 Positive >43.9 31-Fks-373457:19 CBC W/Diff, Automated Comments: Order Date: 02/23/18Order Info: 0184-1 - CBCDOrder Info: 35176-4 - [facility] Czhynbyzje7[address] [place], [address] MACROCYTE 1+ (Normal) ANISO RARE [...] 4.2-5.4 WBC 6.9 K/mm3 (Normal) Range: 4.4-11.0 20-Xis-899993:19 Comprehensive Metabolic Profil Comments: Order Date: 02/23/18Order Info: 0786-1 - CMPOrder Info: 1798-8 - AMYOrder Info: 3040-3 - [facility] Kcckejdsmz0647 [address] [place], [address] GAP 11 (Normal) Range: 5-15 CO2 25.0 [...] A.D.A. criteria.Please note revised GLUCOSE reference range wudsqhggi70/02/2018. 49-Mex-526484:19 Erythrocyte Sed Rate Comments: Order Date: 02/23/18Order Info: 0184-1 - CBCDOrder Info: 83023-0 - [facility] Hrxbvonjfw7567 [place], [address] SED RATE 16 mm/h (Normal) Range: 0-30 28-Zaa-716918:19 Lipase (15327) Comments: Order Date: 02/23/18Order Info: 0786- 1 - CMPOrder Info: 1798-8 - AMYOrder Info: 3040-3 - [facility] [address]uxgn[address] [place], [address] LIPASE 92 U/L (Normal) Range: 73-393 45-Qmb-818976:19 Amylase (41585) Comments: Order Date: 02/23/18Order Info: 0786- 1 - CMPOrder Info: 1798-8 - AMYOrder Info: 3040-3 - [facility] [address]zlzyys6[address] [place], [address] ARIAN 27 U/L (Normal) Range: 25-115 0-Hpr-110810:15 Amylase Comments: CMP, CBCD IS FOR DR ORONA IS FOR [facility] Hgyuildsbe4[address] [place], [place], [address] ARIAN 29 U/L (Normal) Range: 25-115 5-Zik-222325:15 CBC W/Diff, Automated Comments: CMP, CBCD IS FOR DR ORONA IS FOR [facility] Dyajicfmpd4271 [address] [place], [address] ANISO 1+ (Normal) Absolute Lymph 0.41 {X10_3/ul} [...] 4.2-5.4 WBC 5.3 K/mm3 (Normal) Range: 4.4-11.0 3-Dzc-149393:15 Comprehensive Metabolic Profil Comments: CMP, CBCD IS FOR DR ORONA IS FOR [facility] Kwakjmovuv4600 [place], [address] GAP 9 (Normal) Range: 5-15 [...] A.D.A. criteria.Please note revised GLUCOSE reference range /02/2018. 9-Cap-090379:15 Digoxin Level Comments: CMP, CBCD IS FOR DR ORONA IS FOR [facility] Wdpnvjpdnm1698 [place], [address] DIG 0.92 ng/mL (Normal) Range: 0.80-2.00 2-Uwa-357662:15 Lipase Comments: [facility], CBCD IS FOR DR ORONA IS FOR [facility] [address] [place], [address] LIPASE 101 U/L (Normal) Range: 73-393 5-Xgz-252318:15 Lipid Profile Comments: [facility], CBCD IS FOR DR ORONA IS FOR [facility] Vuulvwvunb3941 [place], [address] VLDL 15 mg/dL (Normal) Range: [...] 200-240 mg/dL Borderline >240 mg/dL High Risk 7-Cor-524063:15 Magnesium Comments: [facility], CBCD IS FOR DR ORONA IS FOR [facility] Seyramygvw7204 [place], [address] MG 1.8 mg/dL (Normal) Range: 1.6-2.6 0-Uuu-012230:15 Microalb:Creat Ratio,Random UR Comments: [facility], CBCD IS FOR DR ORONA IS FOR [facility] [address] [place], [address] MALB:CREAT 34.3 {mg/g_CRE} (Abnormal) MICROALBUMIN,UR 58.6 mg/L (Normal) UR CREAT 171.00 mg/dL (Normal) [id number] Thyroid Stim Hormone (TSH) Comments: CMP, CBCD IS FOR DR ORONA IS FOR [facility] [id number] [place], [address] TSH 1.84 {uIU/mL} (Normal) Range: 0.358-3.74 [id number]:15 Vitamin B12 383 pg/mL (Normal) Comments: CMP, CBCD IS FOR DR ORONA IS FOR [facility] [id number] [place], [address] Range: 211-911 [id number]:15 Vitamin D,25 Hydroxy Comments: CMP, CBCD IS FOR DR ORONA IS FOR [facility] [id number] [place], [address] Vitamin D 25-OH 72.0 ng/mL (Normal) Range: 29.95-100.01 Comments: Vitamin D 25(OH) Status Range Deficiency <20 ng/mL (50nmol/L) Insuffciency 20 - 30 ng/mL (50 - 75 nmol/L) Sufficiency 30 - 100 ng/mL (75 - 250 nmol/L) Toxicity >100 ng/mL (>250 nmol/L) 48-Qkc-239491:14 Blood Glucose , Office (56480) Blood Glucose , Office 137 (Normal) 06-Gcz-211487:14 HgA1C , Office (85938) HgA1C , Office 6.1 % (Normal) Range: 4.6 - 7.1 26-Vtu-86944:35 CBC W/Diff, Automated Comments: [facility] Afymbgidub[address] [place], [address] Absolute Lymph 1.30 {X10_3/ul} (Normal) Range: [...] 4.2-5.4 WBC 4.2 K/mm3 (Abnormal) Range: 4.4-11.0 46-Gns-78489:33 Comprehensive Metabolic Profil Comments: Reason for Laboratory Test [facility] Nujpxcgtaz9399 [place], [place], [address] GAP 8 (Normal) Range: 5-15 CO2 31.0 mmol/L (Normal) Range: 21.0-32.0 CL 99 mmol/L (Normal) Range: 98-107 K 3.4 mmol/L (Abnormal) Range: 3.5-5.1 NA 138 mmol/L (Normal) Range: 136-145 T BILI 0.70 mg/dL (Normal) Range: 0.20-1.00 ALT 27 U/L (Normal) Range: 13-56 Comments: Please note revised ALT reference range srotcxdkc86/28/2018. ALK P 102 U/L (Normal) Range: 45-117 [...] A.D.A. criteria.Please note revised GLUCOSE reference range /02/2018. 56-Vef-09019:33 LDH 198 U/L (Normal) Comments: Reason for Laboratory Test OVSerial Specimen #1, #2 or #3? [facility] Ycoohbdbvl74[address] [place], [place], [id number] Range: 84-246 69-Rji-379645:15 Culture, Urine Comments: [facility] Uicmkvhxhd1782 [address] [place], [place], [address] CUUR See Note (Normal) Comments: VERBAL ORDER DR. IRVIN'S OFFICE Urine CultureORGANISM 1: Mixed Gram Positive OrganismsColony Count 11,000-25,000MIX CULTURE Mixed contaminants. Submit a new specimen if indicated. 14-Fbj-893952:11 CBC W/Diff, Automated Comments: [facility] Skgrgddxrw7846 [address] [place], [place], [address] Absolute Lymph 1.34 {X10_3/ul} (Normal) Range: 0.83-4.51 [...] 4.2-5.4 WBC 5.4 K/mm3 (Normal) Range: 4.4-11.0 13-Lgr-782888:11 Comprehensive Metabolic Profil Comments: Comments: [facility] Giayldbfec7257 [place], [address] GAP 7 (Normal) Range: 5-15 CO2 28.0 mmol/L (Normal) Range: 21.0-32.0 CL 100 mmol/L (Normal) Range: 98-107 K 3.9 mmol/L (Normal) Range: 3.5-5.1 NA 135 mmol/L (Abnormal) Range: 136-145 T BILI 0.70 mg/dL (Normal) Range: 0.20-1.00 ALT 31 U/L (Normal) Range: 13-56 Comments: Please note revised ALT reference range jcrougzyr15/28/2018. ALK P 110 U/L (Normal) Range: 45-117 [...] A.D.A. criteria.Please note revised GLUCOSE reference range jngjkelio85/02/2018. 46-Qsp-600989:10 Urinalysis, Complete Comments: ORDERED UACDR.JACINDA ORDERED CMP AND CBCDComments: clean catchComments: clean catchHow was Urine Obtained? CUSTOMER SUCCESS ADVOCATE TO [facility] Smbfqiovsh1613 [address] [place], [place], [id number] MUCUS, URINE RARE {/hpf} (Normal) BACTERIA RARE [...] (Normal) CLARITY Cloudy (Normal) COLOR Yellow (Normal) 2-Jnj-819450:42 ,Serum,hCG Quali. Comments: Comments: [facility] blood [facility] [address]dkbgtndqt[address] [place], [place], [id number] HCGSQUAL NEGATIVE {Negative} (Normal) Range: 0-9 Nonpreg HCG Qual triggr 2 m[iU]/mL (Normal) 5-Ogc-709668:41 Basic Metabolic Profile (BMP) Comments: [facility] [address] [place], [place], [phone] GAP 10 (Normal) Range: 5-15 CO2 28.0 [...] A.D.A. criteria.Please note revised GLUCOSE reference range amskykkjg44/02/2018. 3-Iko-038921:41 CBC-Complete Blood Cnt No Diff Comments: [facility] [address]qmgkelp[address] [place], [place], [address] MPV 9.6 fL (Normal) Range: 6.2-12.0 PLT [...] 4.2-5.4 WBC 8.7 K/mm3 (Normal) Range: 4.4-11.0 4-Cnk-679675:41 Prothrombin Time w/INR Comments: [facility] Kozakgpqll0996 [facility]. [place], [place], [address] INR 1.0 (Normal) PROTIME 12.9 s (Normal) Range: 11.7-14.9 :00 Culture, Urine Comments: [facility] Tlgjiructd1860 [facility] [place], [place], [address] CUUR See Note (Normal) Comments: Urine CultureORGANISM [...] &lt ;=20 S(NF) indicates non-formulary drug at [facility]. Approval by Infectious Disease Specialist required before non- formulary drugs may be ordered and/or dispensed. :27 AFP, Tumor Marker Comments: Is Patient ? NPatient's Weight (LBS.): 124Number of Fetuses: 0[facility] (refer to report for specific site)refer to report for address and phone number AFP TUMOR 2253 6.8 ng/mL (Normal) Range: 0.0-8.3 Comments: Khanh ECLIA methodologyPerformed at: CB - [facility] [address] [id number] Director: Omar Hood PhD, Phone: [phone] 90-Ksp-79534:27 CBC W/Diff, Automated Comments: [facility] Gnwchiddko9[address] [place], [place], [address] Absolute Lymph 1.47 {X10_3/ul} (Normal) Range: 0.83-4.51 [...] Range: 4.4-11.0 :27 Comprehensive Metabolic Profil Comments: [facility] [address] [place], [place], [address] GAP 9 (Normal) Range: 5-15 CO2 28.0 [...] Range: 70-110 :27 Microalb:Creat Ratio,Random UR Comments: [facility] [address]ncgrcomtd[address] [place], [place], [address] MALB:CREAT 17.4 {mg/g_CRE} (Normal) MICROALBUMIN,UR 37.5 mg/L (Normal) UR CREAT 215.00 mg/dL (Normal) :40 CBC W/Diff, Automated Comments: [facility] Clafgfikxm8693 [place], [address] Absolute Lymph 1.60 {X10_3/ul} (Normal) [...] 12/06/16Order Info: [id number] - *CMP Complete Metabolic PanelWMercy [facility] Tzexrswnjl1620 [address] [place], [place], [address] GAP 10 (Normal) Range: 5-15 CO2 27.0 [...] <126 mg/dLsuggests IMPAIRED HOMEOSTASIS per A.D.A. criteria. 87-Gyu-14001:15 Culture, Urine Comments: [facility] Mrfoqlttpm4503 [place], [address] CUUR See Note (Normal) Comments: Urine CultureORGANISM [...] $ <=20 S(NF) indicates non-formulary drug at [facility]. Approval by Infectious Disease Specialist required before non-formulary drugs may be ordered and/or dispensed. :35 HgA1C , Office (17689) HgA1C , Office 6.5 % (Normal) Range: 4.6 - 7.1 :07 AFP, Tumor Marker Comments: Is Patient ? [facility] (refer to report for specific site)refer to report for address and phone number AFP TUMOR 2253 8.5 ng/mL (Abnormal) Range: 0.0-8.3 Comments: reMail ECLIA methodologyPerformed at: [facility] [place] [id number] Director: Omar Hood PhD, Phone: [phone] :[phone] CBC W/Diff, Automated Comments: [facility] Dbvempqfhf44[address] [place], [address] Absolute Lymph 1.17 {X10_3/ul} (Normal) [...] Range: 4.4-11.0 31-May-20179:07 Comprehensive Metabolic Profil Comments: [facility] Knwjoyqzbd28[address] [place], [place], [address] GAP 9 (Normal) Range: 5-15 CO2 28.0 [...] US Food and Drug Administration.Performed at: - Lab[address] [id number] Director: Zia Jarvis MD, Phone: [phone] INS RES/DIAB RK . (Normal) LDL SIZE [...] . (Normal) :07 Vitamin D,25 Hydroxy Comments: [facility] Urmecnwgla5111 [facility]. [place], [place], [phone] Vitamin D 25-OH 61.8 ng/mL (Normal) Comments: Vitamin D 25(OH) Status Range Deficiency <20 ng/mL (50nmol/L) Insuffciency 20 - 30 ng/mL (50 - 75 nmol/L) Sufficiency 30 - 100 ng/mL (75 - 250 nmol/L) Toxicity >100 ng/mL (>250 nmol/L) :48 Liver Profile Comments: [facility] Ymaqphyaha3564 [facility]. [place], [place], [address] D BILI 0.14 mg/dL (Normal) Range: 0.00-0.30 T BILI 0.50 mg/dL (Normal) Range: 0.20-1.00 ALT 57 U/L (Normal) Range: 12-78 ALK P 94 U/L (Normal) Range: 45-117 AST 40 U/L (Abnormal) Range: 15-37 GLOB 2.8 g/dL (Normal) Range: 2.3-3.5 ALB 3.9 g/dL (Normal) Range: 3.4-5.0 T PROT 6.7 g/dL (Normal) Range: 6.4-8.2 :45 Potassium Comments: [facility] Zveattoqkw8424 [address] [place], [place], [address] K 4.3 mmol/L (Normal) Range: 3.5-5.1 :35 CBC W/Diff, Automated Comments: [facility] Fwgevwrdmi5161 [address] [place], [place], [address] Absolute Lymph 1.24 {X10_3/ul} (Normal) Range: 0.83-4.51 [...] Range: 4.4-11.0 :35 Comprehensive Metabolic Profil Comments: [facility] Lifkzvwlqt[address] [place], [place], [address] GAP 10 (Normal) Range: 5-15 CO2 31.0 [...] ASPIRATION (SLIDES ONLY) See Note (Normal) Comments: [facility] Fr[address] [place], [address] 0 Comments: Patient: IFEOMA ASHRAF : 1965 (52/F) Acct Num: [id number] Phys: Janelle KING,Alejandro Unit Num: [id number] Loc: LABSPEC Specimen: [id number] Received: 03/18/17 - 1127 Spec Ty pe: ASPIRATION TISSUES TISSUES: COMMENT Correlation with clinical, radiologic findings and appropriate follow up are necessary. CYTOLOGY GROSS Received are ten smears labeled wi th the patient's name and designated per the requisition as left thyroid FNA. Submitted for staining. / 03/18/17 TC:5 CPT: 71876 CYTOLOGY STUDY Slides are reviewed. The specimen [...] <signature on file> 01-Mar-20179:30 HEPATITIS C ANTIBODY (70741) Comments: PATIENT NOT FASTINGPERFORMED BY: Nveloped Euyhij5268 [facility] [id number] Hep C Virus Ab <0.1 {s/co_ratio} (Normal) Range: 0.0-0.9 Comments: Negative: < 0.8 Indeterminate: 0.8 - 0.9 Positive: > 0.9 . The CDC recommends that a positive HCV antibody result be followed up with a HCV Nucleic Acid Amplification test (914301). :30 Potassium Serum (22027) Comments: PATIENT NOT FASTINGPERFORMED BY: Nveloped Sloueo4934 [facility] [id number] Potassium, Serum 4.8 mmol/L (Normal) Range: 3.5-5.2 :29 HgA1C , Office (36237) HgA1C , Office 7.9 % (Abnormal) Range: 4.6 - 7.1 :53 CBC W/Diff, Automated Comments: [facility] Hwfvtzqone4710 [address] [place], [place], [address] Absolute Lymph 1.57 {X10_3/ul} (Normal) Range: 0.83-4.51 [...] Range: 4.4-11.0 :53 Comprehensive Metabolic Profil Comments: [facility] Oznqhzmctl4[address] [place], [place], [address] GAP 11 (Normal) Range: 5-15 CO2 32.0 [...] per A.D.A. criteria. :53 Lipid Profile Comments: [facility] Nsttyvuiro2119 [place], [address] VLDL 37 mg/dL (Normal) Range: 5-40 LDL [...] High Risk :53 Microalb:Creat Ratio,Random UR Comments: [facility] [address] [place], [place], [address] MALB:CREAT 19.7 {mg/g_CRE} (Normal) MICROALBUMIN,UR 27.8 mg/L (Normal) UR CREAT 141.00 mg/dL (Normal) :53 Thyroid Stim Hormone (TSH) Comments: [facility] [address] [place], [place], [address] TSH 2.39 {uIU/mL} (Normal) Range: 0.358-3.74 :53 Vitamin D,25 Hydroxy Comments: [facility] [address]xuwo[address] [place], [place], [address] Vitamin D 25-OH 79.9 ng/mL (Normal) Comments: Vitamin D 25(OH) Status Range Deficiency <20 ng/mL (50nmol/L) Insuffciency 20 - 30 ng/mL (50 - 75 nmol/L) Sufficiency 30 - 100 ng/mL (75 - 250 nmol/L) Toxicity >100 ng/mL (>250 nmol/L) 72-Vhz-633263:08 CBC W/Diff, Automated Comments: [facility] Jotfmopalw[address] [place], [place], [address] Absolute Lymph 2.04 {X10_3/ul} (Normal) Range: 0.83-4.51 [...] 4.2-5.4 WBC 9.0 K/mm3 (Normal) Range: 4.4-11.0 83-Hdg-336516:08 Comprehensive Metabolic Profil Comments: [facility] Rkgrrvxend8466 [place], [place], [address] GAP 9 (Normal) Range: 5-15 CO2 27.0 [...] 126 mg/dLsuggests DIABETES MELLITUS per A.D.A. criteria. 60-Npq-724536:00 Culture, Urine Comments: [facility] Bjmezjenul4275 [address] [place], [place], [address] CUUR See Note (Normal) Comments: Urine CultureORGANISM 1: Mixed Gram Positive OrganismsColony Count >100,000MIX CULTURE Mixed contaminants. Submit a new specimen if indicated. 8-Zko-353184:25 CBC W/Diff, Auto - EPLAB Comments: At [facility] Outpatient [facility] Medical Oncologypatients receive CBC w/auto Differential ONLY. Physicianwill place an order for a manual differential or Pathologistreview at his discretion. [facility]. [address] [place] [address] SPLIT AND DRUM ROOM SUPERVISOR: MATEO CASTANEDA DO PH:[phone] Health System Kocfqrafuf7708 [address] [place], [place], [address] Absolute Lymph 1.42 {X10_3/uL} (Normal) Range: 0.83-4.51 [...] 4.2-5.4 WBC 6.3 K/mm3 (Normal) Range: 4.4-11.0 0-Xpg-573795:25 Comprehensive Metabolic Profil Comments: Order Date: 06/07/16Order Date: 06/07/16erial Specimen #1, #2 or #3? 1[facility] Ftdlfwjxem4464 [place], [place], [address] GAP 11 (Normal) Range: 5-15 CO2 24.0 [...] 200 mg/dLsuggests DIABETES MELLITUS per A.D.A. criteria. 1-Gsu-440408:25 LDH 208 U/L (Normal) Comments: Order Date: 06/07/16Order Date: 16Serial Specimen #1, #2 or #3? [address] [place] [address] Qmjuhtgvxh6278 [place], [address] Range: 84-246 8-Vjy-380470:25 Uric Acid Comments: Order Date: 06/07/16Order Date: 16Serial Specimen #1, #2 or #3? [address] [place] [address] Tuyfpisshu33[address] [place], [address] URIC 3.8 mg/dL (Normal) Range: 2.6-6.0 Comments: The drugs N-Acetylcysteine and Metamizole may falsely deressthis assay. :10 HgA1C , Office (37591) HgA1C , Office 8.0 % (Abnormal) Range: 4.6 - 7.1 :10 Blood Glucose , Office (03511) Blood Glucose , Office 223 (Normal) :24 AFP, Tumor Marker Comments: Is Patient ? [facility] (refer to report for specific site)refer to report for address and phone number AFP TUMOR 2253 8.5 ng/mL (Abnormal) Range: 0.0-8.3 Comments: Khanh ECLIA methodologyPerformed at: - [facility] [address] [id number] Director: Omar Hood PhD, Phone: [phone] :24 CBC W/Diff, Automated Comments: [facility] Vgunmzraur0306 [address] [place], [place], [address] Absolute Lymph 1.35 {X10_3/ul} (Normal) Range: 0.83-4.51 [...] 4.2-5.4 WBC 4.1 K/mm3 (Abnormal) Range: 4.4-11.0 31-Mgf-80364:24 Comprehensive Metabolic Profil Comments: [facility] Rbiegecxfj8240 [address] [place], [place], [address] GAP 9 (Normal) Range: 5-15 CO2 27.0 [...] 126 mg/dLsuggests DIABETES MELLITUS per A.D.A. criteria. 78-Lxo-87696:24 NMR Lipoprofile Comments: [facility] (refer to report [...] the US Food and Drug Administration.Performed at: [address] [id number] Director: Zia Jarvis MD, Phone: [phone] INS RES/DIAB RK . (Normal) LDL SIZE [...] mg/dL (Normal) Range: 100-199 LIPIDS . (Normal) 01-Uyw-174680:53 CBC W/Diff, Automated Comments: [facility] Jnkgwpxcfw8612 [place], [address] Absolute Lymph 1.41 {X10_3/ul} (Normal) [...] Range: 4.4-11.0 :53 Comprehensive Metabolic Profil Comments: [facility] Ryrixyqbla4499 [address] [place], [place], [address] GAP 13 (Normal) Range: 5-15 CO2 24.0 [...] 200 mg/dLsuggests DIABETES MELLITUS per A.D.A. criteria. 60-Ccb-32509:42 CBC W/Diff, Automated Comments: [facility] Pyftnfykbf1425 [address] [place], [place], [address] Absolute Lymph 1.92 {X10_3/ul} (Normal) Range: 0.83-4.51 [...] 4.2-5.4 WBC 6.2 K/mm3 (Normal) Range: 4.4-11.0 75-Wim-82526:42 Comprehensive Metabolic Profil Comments: [facility] Mrelrqzhdq8331 [place], [place], [address] GAP 11 (Normal) Range: 5-15 CO2 25.0 [...] :55 Magnesium Comments: Order Date: 06/07/16Order Date: 06/07/16[facility] Yddudzsmlr65[address] [place], [place], [address](049) MG 2.0 mg/dL (Normal) Range: 1.8-2.4 :57 CBC W/Diff, Auto - EPLAB Comments: At [facility] Outpatient [facility] Medical Oncologypatients receive CBC w/auto Differential ONLY. Physicianwill place an order for a manual differential or Pathologistreview at his discretion. [facility]. [address] [place] [address] [place] [address] SPLIT AND DRUM ROOM SUPERVISOR: MATEO CASTANEDA DO PH:[phone] Health System Uvajewlrkt3871 [address] [place], [place], [phone] Absolute Lymph 1.38 {X10_3/uL} (Normal) Range: 0.83-4.51 [...] Profil Comments: Order Date: 06/07/16OV Order #: [id number] Specimen #1, #2 or #3? 1 [id number] Knjdllwhso4634 [place], [address] GAP 13 (Normal) Range: 5-15 CO2 24.0 [...] (Normal) Comments: Order Date: 06/07/16 Order #: [id number] Specimen #1, #2 or #3? [id number] [place] [address] [place], [address] Range: 84-246 :56 Magnesium Comments: Order Date: 06/07/16 Order #: [id number] Specimen #1, #2 or #3? [id number] [place] [address] [place], [address] MG 1.5 mg/dL (Abnormal) Range: 1.8-2.4 :56 Uric Acid Comments: Order Date: 06/07/16 Order #: [id number] Specimen #1, #2 or #3? [address] [place] [address] [place], [address] URIC 4.8 mg/dL (Normal) Range: 2.6-6.0 Comments: The drugs N-Acetylcysteine and Metamizole may falsely deressthis assay. :30 Liver Profile Comments: [facility] [address] [place], [address] D BILI 0.13 mg/dL (Normal) Range: 0.00-0.30 T BILI 0.40 mg/dL (Normal) Range: 0.20-1.00 ALT 60 U/L (Normal) Range: 12-78 ALK P 126 U/L (Normal) Range: 50-136 AST 37 U/L (Normal) Range: 15-37 GLOB 2.7 g/dL (Normal) Range: 2.3-3.5 ALB 3.4 g/dL (Normal) Range: 3.4-5.0 T PROT 6.1 g/dL (Abnormal) Range: 6.4-8.2 :33 CBC W/AUTO DIFF WBC Comments: PATIENT NOT FASTINGPERFORMED BY: REINALDO ShutlMorristown Medical CenterCwhmbd9319 [facility] [id number] Information: NURSE DRAW (66414) Immature Grans (Abs) 0.0 {x10E3/uL} (Normal) Range: [...] PANEL, COMPREHENSIVE Comments: PATIENT NOT FASTINGPERFORMED BY: ShutlMorristown Medical CenterChvmgz6788 [facility] [id number] (42167) ALT (SGPT) 41 [iU]/L (Abnormal) Range: 0-32 [...] (Abnormal) Range: 65-99 :09 HgA1C , Office (57159) HgA1C , Office 7.0 % (Normal) Range: 4.6 - 7.1 :14 AFP, Tumor Marker Comments: Is Patient ? [facility] (refer to report for specific site)refer to report for address and phone number AFP TUMOR 2253 7.7 ng/mL (Normal) Range: 0.0-8.3 Comments: Khanh ECLIA methodologyPerformed at: CB - [facility] [address] [id number] Director: Omar Hood PhD, Phone: [phone] :[phone] CBC W/Diff, Automated Comments: [facility] [address]vrfycjm4[address] [place], [address] ; will review on 05/17 [...] Range: 4.4-11.0 :14 Comprehensive Metabolic Profil Comments: [facility] O[address]kdqgop6[address] [place], [place], [address] GAP 7 (Normal) Range: 5-15 CO2 28.0 [...] 126 mg/dLsuggests DIABETES MELLITUS per A.D.A. criteria. 75-Rzd-82738:14 Lipid Profile Comments: [facility] Rxjatbvmyi2520 [place], [address] VLDL 36 mg/dL (Normal) Range: 5-40 LDL [...] High Risk :14 Microalb:Creat Ratio,Random UR Comments: [facility] Jjkicckrsv6[address] [place], [address] ; will review on 05/17 MALB:CREAT 14.6 {mg/g_CRE} (Normal) MICROALBUMIN,UR 23.4 mg/L (Normal) UR CREAT 160.00 mg/dL (Normal) :14 Thyroid Stim Hormone (TSH) Comments: [facility] Unybwxneyq3136 [place], [address] TSH 1.89 {uIU/mL} (Normal) Range: 0.358-3.74 :14 Vitamin D,25 Hydroxy Comments: [facility] [address]kafpriaz[address] [place], [address] ; will review on 05/17 Vitamin D 25-OH 53.2 ng/mL (Normal) Comments: Vitamin D 25(OH) Status Range Deficiency <20 ng/mL (50nmol/L) Insuffciency 20 - 30 ng/mL (50 - 75 nmol/L) Sufficiency 30 - 100 ng/mL (75 - 250 nmol/L) Toxicity >100 ng/mL (>250 nmol/L) :23 CBC W/Diff, Automated Comments: [facility] Pbkxospvjr2819 [facility], [address] Absolute Lymph 1.65 {X10_3/ul} (Normal) Range: [...] 4.2-5.4 WBC 4.4 K/mm3 (Normal) Range: 4.4-11.0 18-Chj-52216:23 Comprehensive Metabolic Profil Comments: [facility] Jsipczgcmu6471 [place], [place], [address] GAP 9 (Normal) Range: 5-15 CO2 30.0 [...] per A.D.A. criteria. :07 HgA1C , Office (14341) HgA1C , Office 8.5 % (Abnormal) Range: 4.6 - 7.1 :15 CBC W/Diff, Automated Comments: [facility] [address]ktlpdkjhw9[address] [place], [address] Absolute Lymph 1.76 {X10_3/ul} (Normal) Range: 0.83-4.51 [...] 4.2-5.4 WBC 6.7 K/mm3 (Normal) Range: 4.4-11.0 33-Qrc-52132:15 Comprehensive Metabolic Profil Comments: [facility] Fgrobzkwdw[address] [place], [place], [address] GAP 13 (Normal) Range: 5-15 CO2 23.0 [...] per A.D.A. criteria. :15 Lipid Profile Comments: [facility] Ysuwlsxems38[address] [place], [place], [address] VLDL 45 mg/dL (Abnormal) Range: 5-40 LDL [...] High Risk :15 Vitamin D,25 Hydroxy Comments: [facility] Nictidkyxw6756 [facility] [address] [place], [place], [address] Vitamin D 25-OH 28.8 ng/mL (Normal) Comments: Vitamin D 25(OH) Status Range Deficiency <20 ng/mL (50nmol/L) Insuffciency 20 - 30 ng/mL (50 - 75 nmol/L) Sufficiency 30 - 100 ng/mL (75 - 250 nmol/L) Toxicity >100 ng/mL (>250 nmol/L); ADDENDA: non-emergent till apt :35 CBC W/Diff, Automated Comments: [facility] Tnjkiiktyf9327 [facility] [address]. [place], [place], [address] Absolute Lymph 1.26 {X10_3/ul} (Normal) Range: 0.83-4.51 [...] 4.2-5.4 WBC 4.8 K/mm3 (Normal) Range: 4.4-11.0 77-Muj-59268:35 Comprehensive Metabolic Profil Comments: [facility] Bdxfqxbbfj0752 [address] [place], [place], [address] GAP 14 (Normal) Range: 5-15 CO2 26.0 [...] 200 mg/dLsuggests DIABETES MELLITUS per A.D.A. criteria. 68-Yww-00937:0 ASPIRATION (SLIDES ONLY) See Note (Normal) Comments: [facility] Faotgpurjq8742 [facility] [place], [place], [address] 0 Comments: Patient: IFEOMA ASHRAF : 1965 (50/F) Acct Num: [id number] Phys: Janelle KING,Alejandro Unit Num: [id number] Loc: LABSPEC Specimen: [id number] Received: 01/06/16 - 1129 Spec Ty pe: ASPIRATION TISSUES TISSUES: COMMENT Correlation with clinical, radiologic findings and appropriate follow up are necessary. CYTOLOGY GROSS Received are 10 smears labeled wit h the patient's name and designated per the requisition as fine needle aspiration left thyroid. Submitted for staining. 01/06/16 TC:5 CPT:24715 CYTOLOGY STUDY Slides are reviewed. The spe [...] Signed Toni Yepez 01/07/16 <signature on file> 3-Hdp-423682:29 CBC W/Diff, Auto - EPLAB Comments: At [facility] Medical Oncologypatients receive CBC w/auto Differential ONLY. Physicianwill place an order for a manual differential or Pathologistreview at his discretion. [facility]. [address] [place] [address] SPLIT AND DRUM ROOM SUPERVISOR: MATEO CASTANEDA DO PH:[phone] Health System Ycianfyekd3326 [place], [address] Absolute Lymph 1.49 {X10_3/uL} (Normal) [...] Comments: Serial Specimen #1, #2 or #3? 1[facility] Ztqvuapabi4577 [place], [address] GAP 8 (Normal) Range: 5-15 CO2 26.0 [...] 126 mg/dLsuggests DIABETES MELLITUS per A.D.A. criteria. 2-Qwr-228792:28 LDH 213 U/L (Normal) Comments: Serial Specimen #1, #2 or #3? [address] [place] [address] Wqfgctwprb33[address] [place], [place], [address] Range: 84-246 2-Bak-920998:28 Magnesium Comments: Serial Specimen #1, #2 or #3? [address] [place] [address] Rubmhixytp08[address] [place], [place], [id number] MG 1.6 mg/dL (Abnormal) Range: 1.8-2.4 [id number] Uric Acid Comments: Serial Specimen #1, #2 or #3? 1[facility] [id number] V[place]AS [place], [id number] URIC 4.8 mg/dL (Normal) Range: 2.6-6.0 :36 Miscellaneous Lab Procedure Comments: Comments: [id number] URINE TOX,RUN LOWEST TESTTest(s) Ordered: [id number] URINE TOX,RUN L[facility] TESTWM[facility] [id number] [place], [id number] [facility] [place] Comments: [id number] 6+OXYCODONE-BUND (ng/mL)DRUG RESULT SCREEN CUTOFF____ Amphetamines,Urine Negat LAB (Normal) scott ng/mL 1000Amphetamine test includes Amphetamine and Methamphetamine.Barbiturates Negative ng/mL 200Benzodiazepines Negative ng/mL 200Cannabinoid TEST Negative ng/mL 20Cocaine (Metab) Negative ng/mL 300Opiates Positive ng/mL 300 Opiates test includes Codeine, Morphine, Hydromorphone, [place] codone.Please Note:Confirmation performed by Mass SpectrometryCodeine NegativeMorphine NegativeHydromorphone NegativeHydrocodone Positive Hydrocodone Confirm 1950 ng/mL 300Oxycodone/Oxymorphone,Urine Negative ng/mL 300 Test includes Oxydodone and Oxymorphone. TESTI NG PERFORMED AT [facility]. ORIGINAL REPORT ON FILE IN LAB CONTAINS ADDITIONAL TEST SITE INFORMATION. :36 Urine Drug Screen (VISTA) Comments: Comments: [id number] URINE TOX,RUN LOWEST TESTList of Drugs Taken or Suspected? [facility] Gmftdkxugd69[address] [place], [place], [id number] ; ordered by Basali THC NEGATIVE (Normal) [...] MUST BE ORDERED SEPARATELY. USE TESTMNEMONIC: UTCA 51-Mew-870439:20 HgA1C , Office (19270) HgA1C , Office 7.3 % (Abnormal) Range: 4.6 - 7.1 :13 AFP, Tumor Marker Comments: Is [facility] ? [facility] (refer to report for specific site)refer to report for address and phone number AFP TUMOR 2253 6.4 ng/mL (Normal) Range: 0.0-8.3 Comments: reMail ECLIA methodologyPerformed at: CB - [facility] [address] [id number] Director: Omar Hood PhD, Phone: [phone] :[phone] CBC W/Diff, Automated Comments: [facility] X[address]qwxlmmbu[address] [place], [address] Absolute Lymph 1.59 {X10_3/ul} (Normal) [...] 4.2-5.4 WBC 5.3 K/mm3 (Normal) Range: 4.4-11.0 00-Vbb-98857:13 Comprehensive Metabolic Profil Comments: [facility] Icvsyxbclx6334 [place], [place], [id number] GAP 10 (Normal) Range: 5-15 CO2 24.0 [...] per A.D.A. criteria. :13 Lipid Profile Comments: [facility] Dxuwexzkue2846 [facility] [place], [address] ; non-emergent and pt has [...] High Risk :13 Microalb:Creat Ratio,Random UR Comments: [facility] [address] [place], [address] MALB:CREAT 17.0 {mg/g_CRE} (Normal) MICROALBUMIN,UR 43.7 mg/L (Normal) UR CREAT 257.00 mg/dL (Normal) :13 Thyroid Stim Hormone (TSH) Comments: [facility] Lsokdifiul[address] [place], [id number] TSH 1.82 {uIU/mL} (Normal) Range: 0.358-3.74 :13 Vitamin D,25 Hydroxy Comments: [facility] Fckatxbmie[address] [place], [id number] ; will review at 11/10 appt Vitamin D 25-OH 39.8 ng/mL (Normal) Comments: Vitamin D 25(OH) Status Range Deficiency <20 ng/mL (50nmol/L) Insuffciency 20 - 30 ng/mL (50 - 75 nmol/L) Sufficiency 30 - 100 ng/mL (75 - 250 nmol/L) Toxicity >100 ng/mL (>250 nmol/L) :40 CBC W/Diff, Automated Comments: [facility] H[address]qlnubcm[address] [place], [address] Absolute Lymph [...] 4.2-5.4 WBC 4.7 K/mm3 (Normal) Range: 4.4-11.0 49-Fpr-67393:40 Comprehensive Metabolic Profil Comments: [facility] [address]nlzjkfo[address] [place], [place], [address] GAP 13 (Normal) Range: 5-15 CO2 24.0 [...] per A.D.A. criteria. :49 HgA1C , Office (32849) HgA1C , Office 7.8 % (Abnormal) Range: 4.6 - 7.1 :09 CBC W/Diff, Automated Comments: [facility] Bztxxmnrki74[address] [place], [address] Absolute Lymph 1.07 {X10_3/ul} (Normal) Range: 0.83-4.51 [...] 4.2-5.4 WBC 5.3 K/mm3 (Normal) Range: 4.4-11.0 76-Bhk-590100:09 Comprehensive Metabolic Profil Comments: [facility] Mlsfgqburf[address] [place], [place], [id number] GAP 7 (Normal) Range: 5-15 CO2 28.0 [...] 200 mg/dLsuggests DIABETES MELLITUS per A.D.A. criteria. 5-Lfz-730627:42 CBC W/Diff, Automated Comments: At [facility] Outpatient [facility] Medical Oncologypatients receive CBC w/auto Differential ONLY. Physicianwill place an order for a manual differential or Pathologistreview at his discretion. [facility]IENT [facility]. [address] [place] [address] [address] SPLIT AND DRUM ROOM SUPERVISOR: MATEO CASTANEDA DO PH:[phone] performed at:[facility] Laborato [address] [place] [address] Absolute Lymph 1.60 {X10_3/ul} (Normal) [...] 4.2-5.4 WBC 7.0 K/mm3 (Normal) Range: 4.4-11.0 4-Vzs-501759:42 Comprehensive Metabolic Profil Comments: Serial Specimen #1, #2 or #3? 1Test performed at:[facility] [address] [place] [address] GAP 9 (Normal) Range: 5-15 [...] Comments: Please note revised CREATININE reference range akgbaoguh03/22/2015. BUN 20 mg/dL (Abnormal) Range: 7-18 GLU 118 mg/dL (Abnormal) Range: 70-110 Comments: Fasting Glucose result from 110 to <126 mg/dLsuggests IMPAIRED HOMEOSTASIS per A.D.A. criteria. 4-Hec-515823:42 LDH 133 U/L (Normal) Comments: Serial Specimen #1, #2 or #3? 1Test performed at:[facility] [address] [place] [address] Range: 84-246 5-Pid-409208:42 Uric Acid Comments: Serial Specimen #1, #2 or #3? 1Test performed at:[facility] Imhmtyqmrj[address] [place] [address] URIC 4.6 mg/dL (Normal) Range: 2.6-6.0 4-Ktu-663622:02 CBC W/Diff, Automated Comments: Test performed at:[facility] Drzsimwz[address] [place] [id number] ; handled by vicki Absolute Lymph 1.23 [...] 4.2-5.4 WBC 4.1 K/mm3 (Abnormal) Range: 4.4-11.0 1-Wdu-919928:02 Comprehensive Metabolic Profil Comments: Test performed at:[facility] Ibolfizyxx34[address] [place], [place] [address] GAP 12 (Normal) Range: 5-15 CO2 23.0 [...] Comments: Please note revised CREATININE reference range acbjtzjgw95/22/2015. BUN 11 mg/dL (Normal) Range: 7-18 GLU 214 mg/dL (Abnormal) Range: 70-110 Comments: Glucose result greater than or equal to 200 mg/dLsuggests DIABETES MELLITUS per A.D.A. criteria. 46-Uec-335814:49 VITAMIN B-12 (CYANOCOBALAMIN) Comments: PATIENT NOT FASTINGPERFORMED BY: [facility] CenterGxjqua7584 [facility] [id number] (36595) Vitamin B12 464 pg/mL (Normal) Range: 211-946 60-Mwh-522139:49 Vitamin D Hydroxy (94434) Comments: PATIENT NOT FASTINGPERFORMED BY: [facility] CenterVeewbn4591 [facility] [id number] Vitamin D, 25-Hydroxy 11.5 ng/mL (Abnormal) Range: 30.0-100.0 Comments: Vitamin D deficiency has been defined by the [place] ofMedicine and an Endocrine Society practice guideline as alevel of serum 25-OH vitamin D less than 20 ng/mL (1,2).The Endocrine Society went on to further define vitamin Dinsufficiency as a level between 21 and 29 ng/mL (2).1. IOM ([place] of Medicine). 2010. Dietary reference intakes for calcium and D. [place]: The National Academies Press.2. Sami MF, Sophie NC, Xiomara LARES, et al. Evaluation, treatment, and prevention of vitamin D deficiency: an Endocrine Society clinical practice guideline. JCEM. 2010; 96(7):1911-30. :49 CBC W/AUTO DIFF WBC Comments: PATIENT NOT FASTINGPERFORMED BY: [facility] Lgauso1953 [facility] [id number] Information: [id number] (50414) Immature Grans (Abs) 0.0 {x10E3/uL} (Normal) Range: [...] 3.77-5.28 WBC 6.1 {x10E3/uL} (Normal) Range: 3.4-10.8 50-Xml-364840:28 URINE GENESIS CULTURE-NITA COL Comments: PATIENT NOT FASTINGPERFORMED BY: [facility] Yszjbs4523 [facility] [id number] Information: SRC:[facility] [id number] COUNT (50329) Antimicrobial MIHEAD (Normal) Comments: S = Susceptible; [...] Imipenem Meropenem Urine Final report (Abnormal) Culture,Comprehensive 92-Jey-525148:24 Urinalysis, Office (09401) UA - LEUKOCYTE ESTERASE Trace (Normal) UA - NITRITE Negative (Normal) URINE UROBILINGN NITA TIMED Normal mg/dL (Normal) UA - PROTEIN 30 mg/dL (Normal) UA - PH 6 (Abnormal) UA - BLOOD Negative (Normal) UA - SPECIFIC GRAVITY 1.030 (Abnormal) UA - KETONES Moderate mg/dL (Normal) UA - BILIRUBIN Small (Normal) UA - GLUCOSE Negative (Normal) 01-Apr-20157:54 Bedside Glucose Comments: Test performed at:[facility] [address] [place] [address] BEDSIDE GLU 129 mg/dL (Abnormal) Range: 70-110 Comments: MANAGEMENT OF PATIENT CARE PER NURSING PROTOCOL 31-Mar-20159:47 Urinalysis, Office (40138) UA - LEUKOCYTE ESTERASE Trace (Normal) UA - NITRITE Negative (Normal) URINE UROBILINGN NITA TIMED 2 mg/dL (Normal) UA - PROTEIN 300 mg/dL (Normal) UA - PH 6.0 (Normal) UA - BLOOD Hemolyzed Large (Normal) UA - SPECIFIC GRAVITY 1.030 (Abnormal) UA - KETONES 15 mg/dL (Abnormal) UA - BILIRUBIN Moderate (Normal) UA - GLUCOSE Negative (Normal) 42-Kyb-115484:57 Basic Metabolic Profile (BMP) Comments: Test performed at:[facility] [address] [place] [address] GAP 11 (Normal) Range: 5-15 CO2 27.0 [...] 126 mg/dLsuggests DIABETES MELLITUS per A.D.A. criteria. 95-Jws-872872:57 Digoxin Level Comments: Test performed at:[facility] Wqajwxd[address] [place] [address] DIG 1.17 ng/mL (Normal) Range: 0.80-2.00 75-Ssc-469946:57 Hemoglobin A1c Comments: Test performed at:[facility] W[address]dhofog[address] [place] [address] HGB A1C 7.0 % (Abnormal) Range: 4.2-6.3 13-Uvu-160859:57 Thyroid Stim Hormone (TSH) Comments: Test performed at:[facility] Qjpzrqxd[address] [place] [address], [place] [address] TSH 0.89 {uIU/mL} (Normal) Range: 0.358-3.74 :17 Urine Culture,Comprehensive Comments: PATIENT NOT FASTINGPERFORMED BY: REINALDO [facility] Woyajj0991 [address] [place] [id number] Information: SRC:[facility] [id number] Result 1 BETAGB (Abnormal) Comments: Beta hemolytic [...] 02/28/15How was Urine Obtained? CLEAN CATCHTest performed at:[facility] Uqdtrimnkr1946 [facility] [place] [address] AMORPHOUS 1+ URATE (Normal) MUCUS, [...] :55 CBC W/Diff, Automated Comments: Test performed at:[facility] Wdoihuqicd5341 [facility] [place] [address] Absolute Lymph 1.29 {X10_3/ul} (Normal) [...] :55 Comprehensive Metabolic Profil Comments: Test performed at:[facility] [address]ufyhm[address] [place] [address] GAP 10 (Normal) Range: 5-15 [...] A.D.A. criteria. :55 Lipase Comments: Test performed at:[facility] Slmrmavcut[address] [place] [address] LIPASE 142 U/L (Normal) Range: 70-290 7-Urt-618707:40 HgA1C , Office (76473) HgA1C , Office 7.4 % (Abnormal) Range: 4.6 - 7.1 :03 CBC W/Diff, Automated Comments: Test performed at:[facility] Ruqozdmjve7080 [place] [address] Absolute Lymph 1.31 {X10_3/ul} (Normal) Range: 0.83-4.51 [...] 4.2-5.4 WBC 5.1 K/mm3 (Normal) Range: 4.4-11.0 11-Nhx-022094:03 Comprehensive Metabolic Profil Comments: Test performed at:[facility] Xxribqfrkj8[address] [place], [place] [address] GAP 11 (Normal) Range: 5-15 CO2 26.0 [...] 126 mg/dLsuggests DIABETES MELLITUS per A.D.A. criteria. 58-Vfz-650005:00 Culture, Urine Comments: Test performed at:[facility] Xfwvbskfxd[address] [place], [place] [address] CUUR See Note (Normal) Comments: Urine CultureORGANISM 1: Streptococcus agalactiae (B)[place] Count 1000-10,000 Streptococcus agalactiae (B): REACTION Ampicillin $ <=0.25 S Benzylpenicillin NF <=0.06 S Ceftriaxone (other dx) $ <=0.12 S Inducable Clindamycin Resistan - Linezolid $$$$ <=2 S Vancomycin $ 0.5 S(NF) indicates non-formulary drug at [facility]. Approval by Infectious Disease Specialist required before non-formulary drugs may be ordered and/or dispensed. * CLSI guidelines does not recommend testing of cephalosporins. This interpretation is deduced from Beta-lactam/penicillin results.; ADDENDA: handled by edvin :32 CBC W/Diff, Auto - EPLAB Only Comments: At [facility] Outpatient [facility], [facility] Cancer Care patientsreceive CBC w/auto Differential ONLY. Physician will placean order for a manual differential or Pathologist review athis discretion. [facility]. [address] [place] [address] SPLIT AND DRUM ROOM SUPERVISOR: MATEO CASTANEDA DO PH:[phone] performed at:[facility] Ynzivuyzbp[address] [place], [place] [id number] ; Richie Absolute Neut 2.7 {X10_3/uL} (Normal) [...] Specimen #1, #2 or #3? 1Test performed at:[facility] Cvyicmsmxu[address] [place], [place] [address] Range: 87-241 Comments: ADDENDA: richie :34 TSH (40750) Comments: PATIENT WAS FASTINGPERFORMED BY: [facility] Taapfb8816 [facility] [id number] TSH 1.240 {uIU/mL} (Normal) Range: 0.450-4.500 :34 LIPID PANEL (98422) Comments: PATIENT WAS FASTINGPERFORMED BY: [facility] Vjslia7316 [facility] [id number] LDL/HDL Ratio 2.6 {ratio_units} (Normal) Range: 0.0-3.2 [...] CREATININE RATIO Comments: PATIENT WAS FASTINGPERFORMED BY: [facility] CenterCwsymz1070 [facility] [id number]; non- emergent till apt tomorrow (32098) AND (18864) Microalb/Creat Ratio 14.8 {mg/g_creat} (Normal) Range: 0.0-30.0 Microalbumin, Urine 44.5 ug/mL (Abnormal) Range: 0.0-17.0 Creatinine, Urine 301.0 mg/dL (Abnormal) Range: 15.0-278.0 :34 METABOLIC PANEL, Comments: PATIENT WAS FASTINGPERFORMED BY: [facility] CenterRhfvkj8871 [facility] [id number] Information: [id number] COMPREHENSIVE (80269) ALT (SGPT) 21 [iU]/L (Normal) Range: 0-32 [...] Glucose, Serum 161 mg/dL (Abnormal) Range: 65-99 0-Sjk-921682:10 HgA1C , Office (71244) HgA1C , Office 7.2 % (Abnormal) Range: 4.6 - 7.1 96-Orz-340425:47 CBC W/Diff, Automated Comments: Test performed at:[facility] Mqksklljtz95[address] [place], [place] [address] ; Handled by Vicki Absolute Lymph 1.43 [...] 4.2-5.4 WBC 5.4 K/mm3 (Normal) Range: 4.4-11.0 82-Mrj-333121:47 Comprehensive Metabolic Profil Comments: Test performed at:[facility] [address]qtzerijzi[address] [place], [place] [address] GAP 6 (Normal) Range: 5-15 CO2 30.0 [...] Microscopic Examination Comments: PATIENT NOT FASTINGPERFORMED BY: [facility]6370 [facility] [id number] Bacteria Few (Normal) Mucus Threads Present (Normal) Epithelial Cells (non renal) 0-10 {/hpf} (Normal) Range: 0 - 10 RBC 0-2 {/hpf} (Normal) Range: 0 - 2 WBC >30 {/hpf} (Abnormal) Range: 0 - 5 :01 Urinalysis, Routine Comments: PATIENT NOT FASTINGPERFORMED BY: [facility]6370 [facility] [id number] Microscopic Examination See below: (Normal) Comments: Microscopic was indicated and was performed. Nitrite, Urine Negative (Normal) Urobilinogen,Semi-Qn 0.2 mg/dL (Normal) Range: 0.0-1.9 Bilirubin Negative (Normal) Occult Blood Negative (Normal) Ketones Trace (Abnormal) Glucose Negative (Normal) Protein 1+ (Abnormal) WBC Esterase 3+ (Abnormal) Appearance Turbid (Abnormal) Urine-Color Yellow (Normal) pH 6.0 (Normal) Range: 5.0-7.5 Specific Marion 1.030 (Normal) Range: 1.005-1.030 09-Ajc-700648:18 CBCD ALC 1.30 {X10_3/ul} (Normal) Range: 0.83-4.51 [...] 4.2-5.4 WBC 4.5 K/mm3 (Normal) Range: 4.4-11.0 03-Gtv-954237:18 CMP GAP 7 (Normal) Range: 5-15 CO2 [...] mg/dLsuggests DIABETES MELLITUS per A.D.A. criteria. :01 YKZTA-JFUPGOKEXRH-YVNSE (54945) Comments: PATIENT NOT FASTINGPERFORMED BY: [facility] [id number] AFP, Serum, Tumor Marker 7.1 ng/mL (Normal) Range: 0.0-8.3 Comments: Khanh ECLIA methodology :01 PTT (Activated Partial Comments: PATIENT NOT FASTINGPERFORMED BY: [place] 2647770 [facility] [id number] Thromboplastin Time) (64721) aPTT 25 {sec} (Normal) Range: 24-33 Comments: This test has not been validated for monitoring unfractionated heparintherapy. aPTT-based therapeutic ranges for unfractionated heparintherapy have not been established. For general guidelines onHeparin monitoring, refer to the [facility] Directory of Services. :01 PT (Prothrobim Time) (49347) Comments: PATIENT NOT FASTINGPERFORMED BY: [facility] [id number] Prothrombin Time 10.4 {sec} (Normal) Range: 9.1-12.0 INR 1.0 (Normal) Range: 0.8-1.2 Comments: Reference interval is for non-anticoagulated patients. . Suggested INR therapeutic range for Vitamin K anta gonist therapy: Standard Dose (moderate intensity therapeutic range): 2.0 - 3.0 Higher intensity therapeutic range 2.5 - 3.5 :01 TSH (16755) Comments: PATIENT NOT FASTINGPERFORMED BY: [place] 2647770 [facility] [id number] TSH 1.450 {uIU/mL} (Normal) Range: 0.450-4.500 :01 CBC W/AUTO DIFF WBC Comments: PATIENT NOT FASTINGPERFORMED BY: [place] 2647770 [facility] [id number] Information: [id number], [id number] (58371) Immature Grans (Abs) 0.0 {x10E3/uL} (Normal) Range: [...] CREATININE RATIO Comments: PATIENT NOT FASTINGPERFORMED BY: [facility] CenterZnlbwm1808 [facility] [id number] (19175) AND (62887) Microalb/Creat Ratio 26.4 {mg/g_creat} (Normal) Range: 0.0-30.0 Microalbumin, Urine 96.0 ug/mL (Abnormal) Range: 0.0-17.0 Creatinine, Urine 364.2 mg/dL (Abnormal) Range: 15.0-278.0 5-Luis Angel-88130:01 METABOLIC PANEL, COMPREHENSIVE Comments: PATIENT NOT FASTINGPERFORMED BY: REINALDO [facility] Xluepj7196 [facility] [id number] (51251) ALT (SGPT) 19 [iU]/L (Normal) Range: 0-32 [...] mg/dL (Abnormal) Range: 65-99 :01 LIPID PANEL (56368) Comments: PATIENT NOT FASTINGPERFORMED BY: [facility] Qgfpkn5717 [facility] [id number] LDL/HDL Ratio 2.1 {ratio_units} (Normal) Range: 0.0-3.2 [...] (Normal) Range: 100-199 :19 HgA1C , Office (18972) HgA1C , Office 6.3 % (Normal) Range: [...] 7-18 GLU 102 mg/dL (Normal) Range: 70-110 84-Ciq-89367:59 Anaerobic & Aerobic Comments: PATIENT NOT FASTINGPERFORMED BY: [facility]Co[facility] CenterDzzkcf5483 [facility] [id number] Information: SRC:WND [id number] RIGHT EYE Culture (14001) Antimicrobial MIHEAD (Normal) Comments: S = Susceptible; [...] hours. Anaerobic Culture Final report (Normal) :57 JMDCC-KHZLLTWIHHA-DPEWG (06841) Comments: PATIENT WAS FASTINGPERFORMED BY: [facility]6370 [facility] [id number] AFP, Serum, Tumor Marker 9.2 ng/mL (Abnormal) Range: 0.0-8.3 Comments: Khanh ECLIA methodology :57 PTT (Activated Partial Comments: PATIENT WAS FASTINGPERFORMED BY: [facility]6370 [facility] [id number] Thromboplastin Time) (34244) aPTT 26 {sec} (Normal) Range: 24-33 Comments: This test has not been validated for monitoring unfractionated heparintherapy. aPTT-based therapeutic ranges for unfractionated heparintherapy have not been established. For general guidelines onHeparin monitoring, refer to the [facility] Directory of Services. :57 PT (Prothrobim Time) (82605) Comments: PATIENT WAS FASTINGPERFORMED BY: [facility]6370 [facility] [id number] Prothrombin Time 10.5 {sec} (Normal) Range: 9.1-12.0 INR 1.0 (Normal) Range: 0.8-1.2 Comments: Reference interval is for non-anticoagulated patients. . Suggested INR therapeutic range for Vitamin K anta gonist therapy: Standard Dose (moderate intensity therapeutic range): 2.0 - 3.0 Higher intensity therapeutic range 2.5 - 3.5 :57 TSH (71573) Comments: PATIENT WAS FASTINGPERFORMED BY: [facility]6370 [facility] [id number] TSH 3.200 {uIU/mL} (Normal) Range: 0.450-4.500 :57 CBC WITH MANUAL DIFF Comments: PATIENT WAS FASTINGPERFORMED BY: [facility] CenterHvrgpm1747 [facility] [id number] Information: [id number] (92719) Immature Grans (Abs) 0.0 {x10E3/uL} (Normal) Range: [...] PANEL, COMPREHENSIVE Comments: PATIENT WAS FASTINGPERFORMED BY: [facility] CenterVulvnc0895 [facility] [id number] (26679) ALT (SGPT) 15 [iU]/L (Normal) Range: 0-32 [...] (Abnormal) Range: 65-99 :29 HgA1C , Office (23339) HgA1C , Office 5.4 % (Normal) Range: [...] 7-18 GLU 76 mg/dL (Normal) Range: 70-110 6-Mbe-979565:50 LIPID LDL 82 mg/dL (Normal) Range: 0-130 [...] CHOL 150 mg/dL (Normal) Comments: <200 mg/dL Jylvbhnws496-986 mg/dL Borderline>240 mg/dL High Risk :50 HgA1C , Office (00427) HgA1C , Office 5.8 % (Normal) Range: [...] be sent to the patient by the [facility] within 30 days. Approximately 10% of breast cancers are not detected by mammography. Anormal mammogram should not delay biopsy of a clinically suspiciousabnormality. Signed:Prashant Delgadillo M.D.S [facility] 2012 at 9:19:01 AM [id number] Signed GP/GP If you are the referring physician and would like to consult with theradiologist who provided this interpretation, please herbie Bonilla M.D. at [phone]. If this radiologist is unavailable, youwill be directed to another radiologist to assist. If you are a patient with a question regarding this report, pleaseco ntactyour referring physician directly. Professional Interpretation Provided By: [address], Phone , These documents contain legally protected [...] on 06/15/13920 Sign by: Prashant Delgadillo MD 84-Uzd-89040:27 THYROID Radiology Report See Note Comments: STUDY: [...] Delgadillo M.D.June 15, 2013 at 2:56:26 PM [phone] Signed GP/GP If you are the referring physician and would like to consult with theradiologist who provided this interpretation, please contact Sarmad Bonilla at [phone]. If this radiologist is unavailable, youwill be directed to another radiologist to assist. If you are a patient with a question regarding this report, pleasecontactyour referring physician directly. manda baugh Interpretation Provided By: [employer], Phone , These documents contain legally protected [...] on 06/15/131732 Sign by: Prashant Delgadillo MD 1-Tkv-876959:18 URINE GENESIS CULTURE-NITA COL Comments: PATIENT NOT FASTINGPERFORMED BY: [facility] Mbsnty4300 [facility] [id number] Information: SRC: [id number] COUNT (17671) Antimicrobial MIHEAD (Normal) Comments: S = Susceptible; [...] primarily for treating urinary tract infections. (CLSI, Y988-D83,2009) Urine Culture,Comprehensive Final report (Normal) 04-Jun-20138:48 Urinalysis, Office (89658) UA - LEUKOCYTE ESTERASE Large (Normal) UA - NITRITE Positive (Normal) URINE UROBILINGN NITA TIMED 2 mg/dL (Normal) UA - PROTEIN Negative mg/dL (Normal) UA - BLOOD Negative (Normal) UA - KETONES Moderate mg/dL (Normal) UA - BILIRUBIN Moderate (Normal) UA - GLUCOSE Small mg/dL (Normal) 06-Exj-11067:06 MICROALBUMIN: CREATININE RATIO Comments: PATIENT WAS FASTINGPERFORMED BY: [facility]70 [facility] [id number] (47926) AND (23142) Microalb/Creat Ratio 27.4 {mg/g_creat} (Normal) Range: 0.0-30.0 Microalbumin, Urine 85.2 ug/mL (Abnormal) Range: 0.0-17.0 Creatinine, Urine 311.1 mg/dL (Abnormal) Range: 15.0-278.0 04-Wjp-87432:06 METABOLIC PANEL, Comments: PATIENT WAS FASTINGPERFORMED BY: [facility]70 [facility] [id number] Information: ADD [id number] AND DRAW FEE 99 0073 COMPREHENSIVE (53862) ALT (SGPT) 29 [iU]/L (Normal) Range: 0-32 [...] Glucose, Serum 76 mg/dL (Normal) Range: 65-99 43-Pqv-03427:06 TSH (79057) Comments: PATIENT WAS FASTINGPERFORMED BY: Intrakr LabCoCybEyeSeadhv9635 [facility] [id number] TSH 3.040 {uIU/mL} (Normal) Range: 0.450-4.500 62-Hzn-62046:06 LIPID PANEL (50825) Comments: PATIENT WAS FASTINGPERFORMED BY: Intrakr [facility] Ihwweq5282 [facility] [id number] LDL/HDL Ratio 2.4 {ratio_units} (Normal) Range: 0.0-3.2 HDL Cholesterol 55 mg/dL (Normal) Comments: According to ATP-III Guidelines, HDL-C >59 mg/dL is considered anegative risk factor for CHD. LDL Cholesterol Calc 134 mg/dL (Abnormal) Range: 0-99 VLDL Cholesterol Ramandeep 18 mg/dL (Normal) Range: 5-40 Cholesterol, Total 207 mg/dL (Abnormal) Range: 100-199 Triglycerides 89 mg/dL (Normal) Range: 0-149 :06 HMTQJ-LGCTQHQZRMN-YLNRF (19246) Comments: PATIENT WAS FASTINGPERFORMED BY: [facility] [id number] AFP, Serum, Tumor Marker 5.4 ng/mL (Normal) Range: 0.0-8.3 Comments: Khanh ECLIA methodology :06 PTT (Activated Partial Comments: PATIENT WAS FASTINGPERFORMED BY: [address] [id number] Thromboplastin Time) (06590) aPTT 27 {sec} (Normal) Range: 24-33 Comments: This test has not been validated for monitoring unfractionated heparintherapy. aPTT-based therapeutic ranges for unfractionated heparintherapy have not been established. For general guidelines onHeparin monitoring, refer to the [facility] Directory of Services. :06 PT (Prothrobim Time) (41481) Comments: PATIENT WAS FASTINGPERFORMED BY: [facility] [id number] INR 1.1 (Normal) Range: 0.8-1.2 Comments: Reference interval is for non-anticoagulated patients. . Suggested INR therapeutic range for Vitamin K anta gonist therapy: Standard Dose (moderate intensity therapeutic range): 2.0 - 3.0 Higher intensity therapeutic range 2.5 - 3.5 Prothrombin Time 11.0 {sec} (Normal) Range: 9.1-12.0 :51 HgA1C , Office (91981) HgA1C , Office 5.0 % (Normal) Range: 4.6 - 7.1 :48 CBCD PATHR Reviewed (Normal) Comments: Leukopenia.Relative neutrophilia.Clinical correlation necessary.Toni Yepez M.D. 02/16/13 AMENDED REPORT 02/16/13 6960 PATH REV previously reported as: January follReason: [...] 4.2-5.4 WBC 3.6 {k/mm3} (Abnormal) Range: 4.4-11.0 04-Zoa-41744:48 CMP GAP 9 (Normal) Range: 5-15 CO2 [...] mg/dL (Normal) Range: 70-110 :03 Rapid Flu (52301 x 2) Influenza A Ag positive b (Normal) :27 METABOLIC PANEL, COMPREHENSIVE Comments: PATIENT WAS FASTINGPERFORMED BY: [facility]Co[facility] CenterQefyjc5383 [facility] [id number] (99092) ALT (SGPT) 25 [iU]/L (Normal) Range: 0-32 [...] mg/dL (Normal) Range: 65-99 :27 LIPID PANEL (40531) Comments: PATIENT WAS FASTINGPERFORMED BY: [facility]lMor[facility] CenterVcwbaw0335 [facility] [id number] LDL/HDL Ratio 0.9 {ratio_units} (Normal) Range: 0.0-3.2 LDL Cholesterol Calc 29 mg/dL (Normal) Range: 0-99 VLDL Cholesterol Ramandeep 17 mg/dL (Normal) Range: 5-40 HDL Cholesterol 32 mg/dL (Abnormal) Comments: According to ATP-III Guidelines, HDL-C >59 mg/dL is considered anegative risk factor for CHD. Cholesterol, Total 78 mg/dL (Abnormal) Range: 100-199 Triglycerides 84 mg/dL (Normal) Range: 0-149 :27 TSH (28333) Comments: PATIENT WAS FASTINGPERFORMED BY: [facility] CenterHnnmir5676 [facility] [id number] TSH 3.990 {uIU/mL} (Normal) Range: 0.450-4.500 :27 CBC WITH MANUAL DIFF Comments: PATIENT WAS FASTINGPERFORMED BY: [facility] [id number] Information: [id number] (58239) Immature Grans (Abs) 0.0 {x10E3/uL} Range: 0.0-0.1 [...] 4.4 ng/mL (Normal) Range: 0.0-8.3 9:39 Comments: reMail ECLIA methodologyPerformed at: CB - [facility] [id number] Director: Manuelito Mendez PhD, Phone: [phone] 92-Jix-49056:39 CBCMD ANC 2.4 3/uL (Normal) Range: 2.0-7.7 [...] CHOL 130 mg/dL (Normal) Comments: <200 mg/dL Yloersjno882-170 mg/dL Borderline>240 mg/dL High Risk :39 MIACRE tMICROCREAT 16.5 {mg/g_CRE} (Normal) MIALB 23.3 mg/L (Normal) CREU 141.0 mg/dL (Normal) :39 PT INR 1.1 (Normal) PTP 13.6 s (Normal) Range: 11.9-14.4 :39 PTT PTTP 29.5 s (Normal) Range: 24.1-36.2 :17 Rapid Flu (29571 x 2) Influenza A Ag neg (Normal) :29 HgA1C , Office (12373) HgA1C , Office 5.9 % (Normal) Range: 4.6 - 7.1 :53 FT3 2.9 pg/mL (Normal) Range: 2.18-3.98 :53 T4F 1.26 ng/dL (Normal) Range: 0.76-1.46 :53 TPO 8 {IU/mL} (Normal) Range: 0-34 Comments: Performed at: [facility] [id number] Director: Codi Robles MD, Phone: [phone] TSH 1.23 {uIU/mL} (Normal) Range: 0.358-3.74 :04 HgA1C , Office (53875) HgA1C , Office 5.8 % (Normal) Range: [...] :26 LIPID Comments: ORDERED TSH LIPID CMP CBCRIVERSIDE COUNTY [facility] CENTERFerJACINDA ORDERED VITD CMP CBCD VLDL [...] (Normal) Comments: ORDERED TSH LIPID CMP CBCMD [facility] ORDERED VITD CMP CBCD Range: 0.358-3.74 :26 VITD 44.8 ng/mL (Normal) Comments: ORDERED TSH LIPID CMP CBCMD [facility]ISONFerJACINDA ORDERED VITD CMP CBCD Range: 30.0-100.0 Comments: Vitamin D deficiency has been defined by the [facility] and an Endocrine Society practice guideline as alevel of serum 25-OH vitamin D less than 20 ng/mL (1,2).The Endocrine Society went on to further define vitamin Dinsufficiency as a level between 21 and 29 ng/mL (2).1. IOM ([place] of Medicine). 2010. Dietary reference intakes for calcium and D. [place]: The National Academies Press.2. Sami PATEL, Sophie MOORE, Xiomara LARES, et al. Evaluation, treatment, and prevention of vitamin D deficiency: an Endocrine Society clinical practice guideline. JCEM. 2010; 96(7): 1911-30.Performed at: [place] [address] [place], [place] [id number] Director: Codi Robles MD, Phone: [phone] 27-Jan-20128:02 BILAT SCRN DIGITAL & CAD Radiology [...] Signed GP/GP Professional Interpretat ion Provided By: [facility]iology[facility], , To consult with a radiologist regarding this report, please call our [id number] line @ Dicta dani on 01/27/12 0813 by Faustina KING,Dukeribed on 01/27/12 0950 by ITS IMPORTSign by Faustina KING,Prashant on 01/27/12 0951 Sign by: Prashant Delgadillo MD 97-Nfg-626001:24 HgA1C , Office (29100) HgA1C , Office 5.7 % (Normal) Range: 4.6 - 7.1 36-Kgy-724310:24 Blood Glucose , Office (24427) Blood Glucose , Office 89 (Normal) 41-Hjx-751652:31 Urinalysis, Office (54722) UA - LEUKOCYTE ESTERASE Small (Normal) UA - NITRITE Positive (Normal) URINE UROBILINGN NITA TIMED Normal mg/dL (Normal) UA - PROTEIN 300 mg/dL (Normal) UA - PH 6.0 (Normal) UA - SPECIFIC GRAVITY 1.025 (Normal) UA - KETONES Small mg/dL (Normal) UA - BILIRUBIN Moderate (Normal) UA - GLUCOSE Negative (Normal) :15 HgA1C , Office (76725) HgA1C , Office 6.8 % (Normal) Range: 4.6 - 7.1 :15 Blood Glucose , Office (24577) Blood Glucose , Office 162 (Normal) 36-Pde-195760:22 THYROID Radiology Report See Note (Normal) Comments: [...] Comments: PATIENT NOT FASTINGPERFORMED BY: CB [facility] Vyhzbs7003 [address]ines RoadDublin [place] [id number] Information: SRC:URC [id number] COUNT (79027) Antimicrobial MIHEAD (Normal) Comments: S = Susceptible; [...] Final report Culture,Comprehensive (Normal) :32 Urinalysis, Office (77101) UA - LEUKOCYTE ESTERASE Moderate (Normal) URINE UROBILINGN NITA TIMED Normal mg/dL (Normal) UA - PROTEIN 100 mg/dL (Normal) UA - PH 6.0 (Normal) UA - BLOOD Hemolyzed Large (Normal) UA - SPECIFIC GRAVITY 1.025 (Normal) UA - KETONES Negative mg/dL (Normal) UA - BILIRUBIN Negative (Normal) UA - GLUCOSE Negative (Normal) :28 Blood Glucose , Office (65788) Blood Glucose , Office 223 (Normal) :10 Urinalysis, Office (93947) UA - BILIRUBIN Small (Normal) UA - BLOOD Hemolyzed Large (Normal) UA - GLUCOSE Small (Normal) Comments: 100 UA - KETONES Negative mg/dL (Normal) UA - LEUKOCYTE ESTERASE Trace (Normal) UA - NITRITE Positive (Normal) UA - PH 5.0 (Normal) UA - PROTEIN 300 mg/dL (Normal) UA - SPECIFIC GRAVITY 1.020 (Normal) URINE UROBILINGN NITA TIMED 2 mg/dL (Normal) 8-Alh-806817:29 URINE GENESIS CULTURE-NITA COL Comments: PATIENT NOT FASTINGPERFORMED BY: [facility] Ksrfvw4204 Vines RoadM[facility] Hospital [facility]owell [id number] Information: SRC:UR [id number] COUNT (05906) Antimicrobial MIHEAD (Normal) Comments: S = Susceptible; [...] mL (Normal) Urine Final report (Normal) Culture,Comprehensive 3-Elf-794499:31 Urinalysis, Office (23133) UA - BILIRUBIN Large (Normal) UA - BLOOD Hemolyzed Moderate (Normal) UA - GLUCOSE Moderate (Normal) Comments: 250 mg/dL UA - KETONES Small mg/dL (Normal) Comments: 15mg/dL UA - LEUKOCYTE ESTERASE Large (Normal) UA - NITRITE Positive (Normal) UA - PH 5.0 (Normal) UA - PROTEIN 300 mg/dL (Normal) UA - SPECIFIC GRAVITY 1.015 (Normal) URINE UROBILINGN NITA TIMED 8 mg/dL (Normal) 16-Izp-71713:28 CBCD,SMEAR DIFF RED CELL MORPH SeeNote {NORMAL} [...] (Abnormal) Range: 0.358-3.74 :28 HgA1C , Office (12760) HgA1C , Office 8.3 % (Abnormal) Range: 4.6 - 7.1 :28 Blood Glucose , Office (83887) Blood Glucose , Office 176 (Normal) :24 [...] 200-240 mg/dL Borderline >240 mg/dL High Risk 62-Ffr-525812:54 BRAIN/HEAD W/WO CONTRAST Radiology See Note Comments: [...] 02/09/11 1702 Sign by: Prashant Delgadillo MD 47-Aml-59004:44 HgA1C , Office (18551) HgA1C , Office 7.4 % (Abnormal) Range: 4.6 - 7.1 :44 Blood Glucose , Office (92133) Blood Glucose , Office 206 (Normal) :37 [...] Report See Note (Normal) Comments: Exam Number: [id number] AMMOGRAPHY - BILATERAL SCREENING INDICATION:Routine annual screening [...] attaching a ResultCode to this exam. ADDENDUM: [id number] HPBI/MDS Reported By: PRASHANT DELGADILLO :14 HgA1C , Office (61684) HgA1C , Office 7.0 % (Normal) Range: 4.6 - 7.1 :14 Blood Glucose , Office (69733) Blood Glucose , Office 164 (Normal) :30 LASHA DIR SEMI-QL LASHA DIRECT 24 AU/mL (Normal) :30 ANTI-dsDNA AB 10 {IU/mL} (Normal) :30 TSH 6.39 {uIU/mL} (Abnormal) Range: 0.358-3.74 39-Cjl-993159:35 C-REACTIVE PROTEIN (99143) Comments: PATIENT NOT FASTINGPERFORMED BY: [facility] AssociatesSaint [facility]rea [id number] C-Reactive Protein, Quant 6.5 mg/L (Abnormal) Range: 0.0-4.9 68-Nbc-059491:35 SED RATE ERYTHROCYTE (81733) Comments: PATIENT NOT FASTINGPERFORMED BY: [facility]70 [facility] MusicCentral [facility] [id number] Sedimentation Rate-Westergren 14 mm/h (Normal) Range: 0-20 08-Zzr-678857:35 RHEUMATOID FACTOR-QUANT (02281) Comments: PATIENT NOT FASTINGPERFORMED BY: [facility]70 [facility] MusicCentral [facility] [id number] RA Latex Turbid. 7.6 {IU/mL} (Normal) Range: 0.0-13.9 19-Gls-066231:35 LASHA (ANTINUCLEAR ANTIBODY) Comments: PATIENT NOT FASTINGPERFORMED BY: [facility]Brisk VideoCentral [facility] [id number] (81687) LASHA Direct Positive (Abnormal) :35 T3, FREE (TRIDOTHYRONINE) (05851) Comments: PATIENT NOT FASTINGPERFORMED BY: [facility] [id number] Triiodothyronine,Free,Serum 2.8 pg/mL (Normal) Range: 2.0-4.4 :35 T4, FREE (THYROXINE) (52696) Comments: PATIENT NOT FASTINGPERFORMED BY: [address] [id number] T4,Free(Direct) 0.76 ng/dL (Abnormal) Range: 0.82-1.77 :35 Anti-TPO Antibody (34527) Comments: PATIENT NOT FASTINGPERFORMED BY: [place] [address] [facility] [id number] Thyroid Peroxidase (TPO) Ab <6 {IU/mL} (Normal) Range: 0-34 :35 TSH (61835) Comments: PATIENT NOT FASTINGPERFORMED BY: [place] [address] [facility] [id number] TSH 5.630 {uIU/mL} (Abnormal) Range: 0.450-4.500 Comments: Please note reference interval change :35 METABOLIC PANEL, Comments: PATIENT NOT FASTINGPERFORMED BY: [place] [address] [facility] [id number] Information: [id number] COMPREHENSIVE (73856) ALT (SGPT) 55 [iU]/L (Abnormal) Range: 0-40 [...] Glucose, Serum 151 mg/dL (Abnormal) Range: 65-99 16-Eon-357573:02 GENESIS CULTURE-OTHER (27899) Comments: PATIENT NOT FASTINGPERFORMED BY: [facility]CoMorristown Medical CenterOuwyyi6105 [facility] [id number] Information: SRC:THRT [id number] Result 1 Yeast isolated. (Normal) Comments: Moderate growthRequest for further identification must be madewithin 1 week. Upper Respiratory Culture Final report (Normal) 10-Ctw-87910:37 Rapid Strep Test, Office (27358) Rapid Strep Test, Office Negative (Normal) 35-Bnp-805764:11 THYROID (HP) Radiology Report See Note (Normal) Comments: Exam Number: [id number] CLINICAL:This is a 45-year-old female patient with [...] 126 mg/dLsuggests DIABETES MELLITUS per A.D.A. criteria. 18-Zxw-24064:41 LIPID CHOL 147 mg/dL (Normal) Comments: <200 mg/dL Oblolsjah230-064 mg/dL Borderline>240 mg/dL High Risk HDL 32 mg/dL (Abnormal) Comments: Reference RangeHDL <40 mg/dL Low HDL CholesterolHDL >or= 60 mg/dL High HDL Cholesterol LDL 89 mg/dL (Normal) Range: 0-130 TRIG 128 mg/dL (Normal) Comments: Serum Triglycerides Reference IntervalNormal <150 mg/dLBorderline high 150 - 199 mg/dLHigh 200 - 499 mg/ dLVery High > or = 500 mg/dL VLDL 26 mg/dL (Normal) Range: 5-40 07-Bfc-60405:41 TSH 4.85 {uIU/mL} (Abnormal) Range: 0.358-3.74 43-Mbq-015865:50 URINE GENESIS CULTURE-NITA COL Comments: PATIENT NOT FASTINGPERFORMED BY: CB [facility] Bmdjfm6474 Vines RoadDuCentral Harnett Hospital [id number] Information: SRC:UR ADD [id number] COUNT (64953) Result 1 Klebsiella pneumoniae Comments: 1,000 Colonies/mL [...] STrimethoprim/Sulfa S Urine Final report (Normal) Culture,Comprehensive 43-Uty-79618:55 Urinalysis, Office (55944) UA - LEUKOCYTE ESTERASE Small (Normal) UA - NITRITE Negative (Normal) URINE UROBILINGN NITA TIMED Normal mg/dL (Normal) UA - PROTEIN 30 mg/dL (Normal) UA - PH 6.0 (Normal) UA - BLOOD Negative (Normal) UA - SPECIFIC GRAVITY 1.020 (Normal) UA - KETONES Negative mg/dL (Normal) UA - BILIRUBIN Negative (Normal) UA - GLUCOSE Negative (Normal) 5-Hmo-129106:37 PET/CT,TUMOR,BASE-THIGH,SUBS Radiology Report See Note (Normal) Comments: Exam Number: [id number] EXAM: Body PET study Head to Mid [...] 44:398P, 2003). w Reported By: ADELA MOLINA 5-Xcx-992575:00 PRANEETH+ELPU24 3467 ALBUMIN,U 37.7 % (Normal) WFJGR-4-WIYM,U 3.2 % (Normal) QWSDL-4-ODNW,U 7.6 % (Normal) BETA GLOB,U 23.1 % (Normal) GAMMA GLOB,U 28.5 % (Normal) PRANEETH RESULT,U Comment (Normal) Comments: No monoclonality detected. M-SPIKE,UR% SeeNote % (Normal) Comments: Result: Not Observed PROTEIN, U24 62.1 {mg/24_hr} Range: 30.0-150.0 (Normal) PROTEIN,UR 2.3 mg/dL (Normal) Range: 0.0-15.0 7-Fbr-903107:15 C-REACTIVE PROT < 2.90 mg/L (Normal) Range: 0.0-3.0 Comments: C-Reactive Protein (CRP) provides useful information for thediagnosis, therapy and monitoring of inflammatory processesand associated diseases. For the evaluation of Relative Riskfor Cardiovascular Dise ase, a High Sensitivity CRP (HSCRP)should be ordered. 7-Edb-307406:15 CBCD,SMEAR DIFF PLT EST SeeNote (Normal) Comments: [...] SED RATE 11 mm/h (Normal) Range: 0-20 7-Xni-654215:15 LDH 197 U/L (Abnormal) Range: 100-190 7-Fmf-794883:15 LIPID HDL 30 mg/dL (Abnormal) Comments: Reference [...] CHOL 154 mg/dL (Normal) Comments: <200 mg/dL Ltdbfhfhy658-187 mg/dL Borderline>240 mg/dL High Risk :15 PROT.[id number] NOTE Comment (Normal) Comments: Protein electrophoresis scan will follow via computer,mail, or pleating machine operator delivery.Performed at: [address] [id number] Director: Kamlesh Arana MD ALBUMIN,UR 54.2 % (Normal) ETDUE-5-EZAU,U 1.2 % (Normal) KKODW-8-GMJE,U 9.4 % (Normal) BETA GLOB,U 23.4 % (Normal) GAMMA GLOB,U 11.8 % (Normal) M-SPIKE,U SeeNote % (Normal) Comments: Result: Not Observed PROTEIN,UR 13.6 mg/dL (Normal) Range: 0.0-15.0 :15 SPE [id number] A/G RATIO 1.8 (Normal) Range: 0.7-2.0 GLOBULIN, [...] electrophoresis scan will follow via computer,mail, or pleating machine operator delivery. M-SPIKE SeeNote g/dL (Normal) Comments: Result: Not Observed GAMMA GLOBULIN 0.4 g/dL (Abnormal) Range: 0.5-1.6 ALBUMIN 3.9 g/dL (Normal) Range: 3.2-5.6 ALPHA-1 GLOBUL 0.2 g/dL (Normal) Range: 0.1-0.4 ALPHA-2 GLOBUL 0.7 g/dL (Normal) Range: 0.4-1.2 BETA GLOBULIN 0.9 g/dL (Normal) Range: 0.6-1.3 PROTEIN,TOTAL 6.1 g/dL (Normal) Range: 6.0-8.5 11-Krr-227803:28 BRAIN/HEAD WITHOUT CONTRAST Radiology Report See Note (Normal) Comments: Exam Number: [id number] CT SCAN OF BRAIN HISTORYLytic lesion, lymphoma. [...] for confirmation. Reported By: TRUE NAGEL M.D. 94-Rfm-743504:23 SPINE,CERVICAL WITHOUT CONTRAS Radiology Report See Note (Normal) Comments: Exam Number: [id number] CLINICAL:44 year old female with cervical radiculopathy. [...] tumor involvement. Reported By: SHARYN JASMINE M.D. 73-Zca-047610:50 Blood Glucose , Office (68359) Blood Glucose , Office 105 (Normal) 46-Sli-007768:50 HgA1C , Office (20555) HgA1C , Office 6.1 % (Normal) Range: 4.6 - 7.1 30-Sje-384934:24 URINE GENESIS CULTURE-NITA COL Comments: PATIENT NOT FASTINGPERFORMED BY: [facility] Wkcebi0107 [facility] [id number] Information: SRC:UR [id number] COUNT (01128) Antimicrobial MIHEAD (Normal) Comments: S = Susceptible; [...] mL (Normal) Urine Final report (Normal) Culture,Comprehensive 09-Ieg-931398:41 Urinalysis, Office (22706) UA - LEUKOCYTE ESTERASE Large (Normal) UA [...] Report See Note (Normal) Comments: Exam Number: [id number] Procedure completed. Please see MEDICAL RECORDS reports in PCI - OP - OP NOTE LET - LETTER. Reported By: BOONE CH M.D. :19 BLOOD GAS, O2 SAT ONLY - SUBSQ Radiology Report See Note (Normal) Comments: Exam Number: [id number] Procedure completed. Please see MEDICAL RECORDS reports in PCI - OP - OP NOTE LET - LETTER. Reported By: BOONE CH M.D. :19 BLOOD GAS, O2 SAT ONLY - SUBSQ Radiology Report See Note (Normal) Comments: Exam Number: [id number] Procedure completed. Please see MEDICAL RECORDS reports in PCI - OP - OP NOTE LET - LETTER. Reported By: BOONE CH M.D. 04-Aug-20096:45 RHC/LHC/CORS/LV Radiology Report See Note (Normal) Comments: Exam Number: [id number] Procedure completed. Please see MEDICAL RECORDS reports [...] 3.5-5.1 NA 135 mmol/L (Abnormal) Range: 136-145 8-Bpo-199991:59 CBC HCT 40.9 % (Normal) Range: 37-47 [...] MIXED GRAM POSITIVE ORGANISMS :58 Urinalysis, Office (74553) UA - BILIRUBIN Negative (Normal) UA - BLOOD Negative (Normal) UA - GLUCOSE Negative (Normal) UA - KETONES Negative mg/dL (Normal) UA - LEUKOCYTE ESTERASE Small (Normal) Comments: aw UA - NITRITE Negative (Normal) UA - PH 6.0 (Normal) UA - PROTEIN Negative mg/dL (Normal) UA - SPECIFIC GRAVITY 1.010 (Normal) URINE UROBILINGN NITA TIMED Normal mg/dL (Normal) :53 HgA1C , Office (36536) HgA1C , Office 5.7 % (Normal) Range: 4.6 - 7.1 :53 Blood Glucose , Office (91137) Blood Glucose , Office 133 (Normal) :24 [...] (Normal) Range: 6.4-8.2 :53 HgA1C , Office (82000) HgA1C , Office 10.0 % (Abnormal) Range: 4.6 - 7.1 :53 Blood Glucose , Office (71631) Blood Glucose , Office 410 (Normal) :46 [...] mg/dL VLDL 49 mg/dL (Abnormal) Range: 5-40 7-Mjn-120148:46 MICROALB:CRE UR MALB:CREAT 33.3 {mg/g_CRE} (Abnormal) MICROALBUMIN,UR 62.2 mg/L (Normal) UR CREAT 186.7 mg/dL (Normal) 40-Uen-789838:11 LIPID Comments: PATIENT NOT FASTING/DEMANDED TO BE [...] mg/dL VLDL 31 mg/dL (Normal) Range: -40 85-Cno-425272:11 LIVER Comments: PATIENT NOT FASTING/DEMANDED TO BE DRAWN ALT 43 U/L (Normal) Range: 30-65 D BILI 0.07 mg/dL (Normal) Range: 0.00-0.30 T BILI 0.35 mg/dL (Normal) Range: 0.00-1.00 ALB 3.4 g/dL (Normal) Range: 3.4-5.0 ALK P 210 U/L (Abnormal) Range: 50-136 AST 27 U/L (Normal) Range: 15-37 T PROT 6.4 g/dL (Normal) Range: 6.4-8.2 94-Mzg-546502:23 Urinalysis, Office (99604) Comments: done BC UA - BILIRUBIN Negative (Normal) UA - BLOOD Hemolyzed Large (Normal) UA - GLUCOSE Large (Normal) Comments: > 1000mg/dL UA - KETONES Negative mg/dL (Normal) UA - LEUKOCYTE ESTERASE Moderate (Normal) UA - NITRITE Negative (Normal) UA - PH 6.0 (Normal) UA - PROTEIN 30 mg/dL (Normal) UA - SPECIFIC GRAVITY 1.010 (Normal) URINE UROBILINGN NITA TIMED Normal mg/dL (Normal) 13-Qiv-074590:44 MYOCARD PERF SPECT REST/STRESS Radiology Report See Note (Normal) Comments: Exam Number: [id number] MYOCARDIAL PERFUSION SCAN TECHNIQUEThe patient was injected [...] reports an LVEF of 37%. Reported By: NOE MORRIS M.D. 08-Its-52801:39 SPINE, LUMBAR W/W/O CONTRAST Radiology Report See Note (Normal) Comments: Exam Number: [id number] MAGNETIC RESONANCE IMAGING OF THE LUMBAR SPINE [...] other abnormality. Reported By: SUSAN GOMEZ M.D. 15-Mat-739202:04 CULTURE, URINE URINE CULTURE See Note {CFU/mL} (Normal) Comments: COLONY COUNT 25,000-50,000 ORGANISM 1: MIXED GRAM POSITIVE ORGANISMS 82-Wyi-159254:15 Urinalysis, Office (69828) UA - LEUKOCYTE ESTERASE Small (Normal) Comments: aw UA - NITRITE Negative (Normal) UA - PH 5.0 (Normal) UA - PROTEIN Negative mg/dL (Normal) URINE UROBILINGN NITA TIMED Normal mg/dL (Normal) UA - BILIRUBIN Negative (Normal) UA - BLOOD Negative (Normal) UA - GLUCOSE Negative (Normal) UA - KETONES Negative mg/dL (Normal) UA - SPECIFIC GRAVITY 1.025 (Normal) 02-Kah-994118:09 Blood Glucose , Office (09107) Blood Glucose , Office 231 (Normal) 02-Yzc-267711:09 HgA1C , Office (65067) HgA1C , Office 7.1 % (Normal) Range: 4.6 - 7.1 54-Iyq-031757:42 CBCD,SMEAR DIFF CELLS COUNTED 100 (Normal) HCT [...] 47-70 WBC 4.3 K/mm3 (Abnormal) Range: 4.4-11.0 64-Kkd-173654:42 COMP METABOLIC A/G 1.2 {RATIO} (Normal) Range: [...] for patient's is the eGFRmultiplied by 1.212. [facility] Laboratory uses the abbreviated Modification of Diet [...] Disease W/O Kidney Disease>/= 90 Stage One Wjxcyc22 - 89 Stage Two Suspect Decreased GFR30 [...] T PROT 6.5 g/dL (Normal) Range: 6.4-8.2 03-Wpn-740087:42 LIPID CHOL 182 mg/dL (Normal) Comments: <200 [...] mg/dL VLDL 36 mg/dL (Normal) Range: 5-40 50-Zqa-304664:42 MICROALB:CRE UR MALB:CREAT 35.4 {mg/g_CRE} (Abnormal) MICROALBUMIN,UR 54.7 mg/L (Normal) UR CREAT 154.6 mg/dL (Normal) 41-Lyr-898492:42 TSH 2.57 {uIU/mL} (Normal) Range: 0.34-4.82 :40 CULTURE, URINE URINE CULTURE See Note {CFU/mL} (Normal) Comments: COLONY COUNT 1000-10,000 ORGANISM 1: MIXED GRAM POS & NEG ORGANISMS :36 Urinalysis, Office (28190) UA - BILIRUBIN Negative (Normal) UA - BLOOD Non Hemolyzed Trace (Normal) UA - KETONES Negative mg/dL (Normal) UA - LEUKOCYTE ESTERASE Moderate (Normal) UA - NITRITE Negative (Normal) UA - PH 5.0 (Normal) UA - PROTEIN Negative mg/dL (Normal) UA - SPECIFIC GRAVITY 1.015 (Normal) URINE UROBILINGN NITA TIMED Normal mg/dL (Normal) UA - GLUCOSE Negative (Normal) 57-Rbt-397712:20 CULTURE, URINE URINE CULTURE See Note {CFU/mL} (Normal) Comments: COLONY COUNT 25,000-50,000 ORGANISM 1: MIXED GRAM POS & NEG ORGANISMS :12 Urinalysis, Office (22491) UA - BILIRUBIN Negative (Normal) UA - BLOOD Negative (Normal) UA - GLUCOSE Negative (Normal) UA - KETONES Negative mg/dL (Normal) UA - LEUKOCYTE ESTERASE Small (Normal) UA - NITRITE Negative (Normal) UA - PH 6.0 (Normal) UA - PROTEIN Negative mg/dL (Normal) UA - SPECIFIC GRAVITY 1.005 (Normal) URINE UROBILINGN NITA TIMED Normal mg/dL (Normal) 59-Eto-246103:08 CBCD,SMEAR DIFF CELLS COUNTED 100 (Normal) EOS [...] Range: 0.34-4.82 :28 Blood Glucose , Office (45456) Blood Glucose , Office 124 (Normal) :28 HgA1C , Office (29893) HgA1C , Office 6.1 % (Normal) Range: 4.6 - 7.1 :38 CERULOPLAS 1560 21.3 mg/dL (Normal) Range: 17.9-53.3 Comments: Performed At: [facility] [place], [place] [id number] :38 FERRITIN 189 ng/mL (Normal) Range: 8-252 :38 HEP-ABC 488175 HB CORE [id number] SeeNote (Normal) Comments: Result: Negative HB SURF [...] T PROT 6.5 g/dL (Normal) Range: 6.4-8.2 65-Bdq-728770:38 MITOCHN AB 6650 <20.0 {Units} (Normal) Range: 0.0-20.0 Comments: Negative 0.0 - 20.0 Equivocal 20.1 - 24.9 Positive >24.9 . Mitochondrial (M2) Antibodies are found in 90-96% of patients with primary biliary cirrhosis. 25-Sjb-100925:03 GGTP 61 U/L (Abnormal) Range: 5-55 :03 LIVER ALB 3.7 g/dL (Normal) Range: 3.4-5.0 ALK P 161 U/L (Abnormal) Range: 50-136 ALT 35 U/L (Normal) Range: 30-65 AST 18 U/L (Normal) Range: 15-37 D BILI 0.06 mg/dL (Normal) Range: 0.00-0.30 T BILI 0.33 mg/dL (Normal) Range: 0.00-1.00 T PROT 6.5 g/dL (Normal) Range: 6.4-8.2 0-Fdc-493036:02 THYROID (HP) Radiology Report See Note (Normal) Comments: Exam Number: [id number] THYROID ULTRASOUND HISTORYThyromegaly. High-resolution, real-time linear images [...] is recommended. Reported By: TRUE NAGEL M.D. 97-Bbu-325815:05 Blood Glucose , Office (22771) Blood Glucose , Office 135 (Normal) 81-Efu-151662:05 HgA1C , Office (25195) HgA1C , Office 5.6 % (Normal) Range: [...] Report See Note (Normal) Comments: Exam Number: [id number] CT BRAIN WITHOUT AND WITH INTRAVENOUS CONTRAST [...] clinically warranted. Reported By: AIDAN MASON M.D. 44-Jml-814974:30 CBCD Comments: CALL [phone] TO [phone] BASO% 0.8 % (Normal) Range: 0-1 EO% [...] 1+ANISOCYTOSIS WBC 3.8 K/mm3 (Abnormal) Range: 4.4-11.0 61-Olc-569712:30 COMP METABOLIC Comments: CALL [phone] TO [phone] A/G 1.5 {RATIO} (Normal) Range: 0.9-2.4 ALB [...] :30 LDH 206 U/L (Abnormal) Comments: CALL [phone] TO [phone] Range: 100-190 :30 URIC 5.7 mg/dL (Normal) Comments: CALL [phone] TO [phone] Range: 2.6-6.0 :30 CULT, DP WOUND Comments: [...] mg/dL (Abnormal) Range: 40-230 Comments: Performed At: [address] [id number] :[id number] LDH 211 U/L (Abnormal) Range: 100-190 [...] PT IN CATHLABPrecautions*: NOT APPLICABLE Range: 0.34-4.82 07-Zag-490630:20 BMP Comments: COMMENTS: BED 13 DR FASTPrecautions*: [...] 3.5-5.1 NA 136 mmol/L (Normal) Range: 136-145 38-Zlq-338612:20 CBCD Comments: COMMENTS: BED 13 DR FASTPrecautions*: [...] 47-70 WBC 23.9 K/mm3 (Abnormal) Range: 4.4-11.0 26-Rwu-70814:30 AFB C&S [id number] Comments: Precautions*: CHEMO PRECAUTIONSSPECIMEN DESCRIPTION: #2 SAME SOURCE AFB CULT See Note Comments: TESTING PERFORMED AT [facility]. ORIGINAL REPORT ON FILE IN LAB CONTAINS ADDITIONAL TEST SITE INFORMATION. (Normal) CULTURE, ACID FAST NO ACID-FAST BACILLI ISOLATED AFTER 6 WEEKS. AFB SMEAR See Note Comments: [facility] ORIGINAL REPORT ON FILE IN LAB CONTAINS ADDITIONAL TEST SITE INFORMATION. (Normal) ACID FAST BACILLUS SMEAR NO ACID-FAST BACILLI OBSERVED ON SMEAR. 13-D CULT,ALFREDITO See Note Comments: Precautions*: CHEMO PRECAUTIONSSPECIMEN DESCRIPTION: #1 SAME SOURCE ec-2 8482 (Normal) Comments: ` TESTING PERFORMED AT [facility]. ORIGINAL REPORT ON FILE IN LAB CONTAINS ADDITIONAL TEST SITE INFORMATION. 0069 CULTURE, FUNGUS NO YEAST OR MOLD ISOLATED AFTER 4 WEEKS. :30 13-D CYTOLOGY, SeeNote Comments: Result: SEE PATHOLOGY REPORT Specimen submitted to Anatomical Pathology Department for testing. ec-2 BF/CSF (Normal) 0069 :30 96-Wda-11986:30 FLUID P-FLU (Normal) Comments: OPERATION Not noted [...] DRAWN 07/22/06-TEST MISSED Range: 100-190 :51 SPE [id number] A/G RATIO 1.3 (Normal) Range: 0.7-2.0 ALBUMIN [...] Evidenceof monoclonal protein is not apparent.Performed At: [facility], [place] [id number] M-SPIKE SeeNote (Normal) Comments: Result: Not Observed NOTE: Comment (Normal) Comments: Protein electrophoresis scan will follow via mail orcourier. PROTEIN,TOTAL 6.5 g/dL (Normal) Range: 6.0-8.5 :49 Blood Glucose , Office (29019) Blood Glucose , Office 84 (Normal) :49 HgA1C , Office (33705) HgA1C , Office 6.6 % (Normal) Range: [...] tachycardia Planned Observations CBC with auto diff (93474)Indication: Diabetes mellitus type II, controlled On: 1-Jjh-271480:03 Request LIPID PANEL (85433)Indication: Diabetes mellitus type II, controlled On: :03 Request METABOLIC PANEL, COMPREHENSIVE (81246)Indication: Diabetes mellitus type II, controlled On: : Request HGB A1C (25218)Indication: Diabetes mellitus type II, controlled On: :02 Request TSH (THYROID STIMULATING HORMONE) (56442)Indication: Acquired hypothyroidism On: : Request Metabolic Panel, Basic (68054)Indication: Hyponatremia On: :00 Request TSH (26831)Indication: Diabetes mellitus type II, controlled On: :48 Request Vitamin B-12 (cyanocobalamin) (57747)Indication: B12 deficiency On: :45 Request CBC WITH MANUAL DIFF (53653)Indication: B12 deficiency On: :45 Request T3, FREE (TRIDOTHYRONINE) (44978)Indication: Thyroid nodule On: :48 Request Comments: add to labs already drawn T4, FREE (THYROXINE) (50585)Indication: Thyroid nodule On: :47 Request Comments: add to labs already drawn Digoxin (15903)Indication: Cardiomyopathy On: :44 Request LIPID PANEL (76566)Indication: Mixed hyperlipidemia On: :43 Request TSH (00123)Indication: Acquired hypothyroidism On: :43 Request Vitamin D Hydroxy (14890)Indication: Vitamin D deficiency On: :43 Request EWELN-PEVOLDJGJUM-YTHRU (37479)Indication: Fatty liver On: :42 Request VITAMIN B-12 (CYANOCOBALAMIN) (98700)Indication: Fatigue On: :42 Request URINALYSIS, W/ MICRO (42279)Indication: Diabetes mellitus type II, controlled On: 25-Mhz-650278:30 Request MICROALBUMIN: CREATININE RATIO (04206) AND (42111)Indication: Diabetes mellitus type II, controlled On: :29 Request CBC with auto diff (00688)Indication: Diabetes mellitus type II, controlled On: 71-Wqy-330199:29 Request METABOLIC PANEL, COMPREHENSIVE (34785)Indication: Diabetes mellitus type II, controlled On: 24-Yeo-568912:29 Request HGB A1C (25417)Indication: Diabetes mellitus type II, controlled On: 10-Tzi-091328:29 Request HEPATIC FUNCTION PANEL (52980)Indication: Elevated liver enzymes On: 2-Iji-899197:38 Request Comments: do in hospital tuesday when get US Metabolic Panel, Comprehensive (79065)Indication: Epigastric pain On: 58-Uhj-611341:54 Request Sed Rate Erythrocyte (11191)Indication: Epigastric pain On: :54 Request CBC, Platelets & Auto Diff (73468)Indication: Epigastric pain On: :54 Request OVA & PARASITE DIR SMEAR (76569)Indication: Diarrhea On: 67-Qoy-183651:53 Request OCCULT BLOOD FECES SCREEN (56063)Indication: Diarrhea On: :53 Request LEUKOCYTE COUNT, FECAL (23507)Indication: Diarrhea On: 44-Yoh-832602:53 Request C-DIFFICILE, STOOL (62048)Indication: Diarrhea On: :53 Request GENESIS CULTURE-STOOL (80326)Indication: Diarrhea On: 82-Vdp-345275:53 Request Magnesium (86950)Indication: Fatigue On: 71-Hgq-227822:42 Request Vitamin B-12 (cyanocobalamin) (84839)Indication: Fatigue On: 80-Yne-542968:41 Request MICROALBUMIN: CREATININE RATIO (31935) AND (20842)Indication: Diabetes mellitus type II, controlled On: 75-Usx-430899:40 Request LIPID PANEL (08187)Indication: Mixed hyperlipidemia On: 39-Jmh-158720:39 Request CBC W/AUTO DIFF WBC (17247)Indication: Fatty liver On: 49-Uln-528088:30 Request METABOLIC PANEL, COMPREHENSIVE (17333)Indication: Fatty liver On: 08-Bdd-708804:30 Request Vitamin D Hydroxy (19176)Indication: Vitamin D deficiency On: 36-Hcd-498152:30 Request TSH (97265)Indication: Acquired hypothyroidism On: 22-Kcj-728000:30 Request Digoxin (60494)Indication: Cardiomyopathy On: 39-Via-512706:29 Request LIPASE (03788)Indication: Epigastric pain On: :28 Request AMYLASE (66379)Indication: Epigastric pain On: :28 Request URINE GENESIS CULTURE-IDENTIFICATN (50876)Indication: Leukocytes in urine On: 96-Rec-254382:38 Request MICROALBUMIN: CREATININE RATIO (14686) AND (73576)Indication: Essential hypertension with goal blood pressure less than 130/80 On: :58 Request CBC W/AUTO DIFF WBC (72932)Indication: Essential hypertension with goal blood pressure less than 130/80 On: :58 Request METABOLIC PANEL, COMPREHENSIVE (75756)Indication: Essential hypertension with goal blood pressure less than 130/80 On: :58 Request XEMCM-LLLFXKVSXDZ-ILVEB (52302)Indication: Abnormal tumor markers On: :57 Request Vitamin D Hydroxy (59348)Indication: Vitamin D deficiency On: :09 Request LIPOPROTEIN, BLD, BY NMR (21808)Indication: Mixed hyperlipidemia On: :09 Request CBC W/AUTO DIFF WBC (45816)Indication: Diabetes mellitus type II, controlled On: :09 Request METABOLIC PANEL, COMPREHENSIVE (73447)Indication: Diabetes mellitus type II, controlled On: :09 Request Potassium Serum (15713)Indication: Hypopotassemia On: :02 Request YMOJC-KVLLEXMIENA-GLVWF (98722)Indication: Fatty liver On: :57 Request MICROALBUMIN: CREATININE RATIO (01412) AND (78439)Indication: Essential hypertension with goal blood pressure less than 130/80 On: :45 Request CBC W/AUTO DIFF WBC (96921)Indication: Essential hypertension with goal blood pressure less than 130/80 On: :45 Request METABOLIC PANEL, COMPREHENSIVE (64225)Indication: Essential hypertension with goal blood pressure less than 130/80 On: :45 Request Vitamin D Hydroxy (79218)Indication: Vitamin D deficiency On: :45 Request TSH (26793)Indication: Acquired hypothyroidism On: :45 Request LIPID PANEL (67311)Indication: Mixed hyperlipidemia On: :45 Request CBC W/AUTO DIFF WBC (27726)Indication: Diabetes mellitus type II, controlled On: :28 Request NDNEE-DPKXORFAPAO-SVTED (23291)Indication: Fatty liver On: : Request METABOLIC PANEL, COMPREHENSIVE (00294)Indication: Mixed hyperlipidemia On: : Request LIPOPROTEIN, BLD, BY NMR (00839)Indication: Mixed hyperlipidemia On: : Request Metabolic Panel, Basic (27551)Indication: Hypopotassemia On: :55 Request Comments: 10 days CBC (AUTO) (39400)Indication: Uncontrolled type II diabetes mellitus On: : Request Vitamin D Hydroxy (53990)Indication: Vitamin D deficiency On: 28-Bgq-901888:03 Request MICROALBUMIN: CREATININE RATIO (51249) AND (09288)Indication: Uncontrolled type II diabetes mellitus On: :02 Request METABOLIC PANEL, COMPREHENSIVE (88680)Indication: Essential hypertension with goal blood pressure less than 130/80 On: 45-Rsa-003460:02 Request BQDHC-KPVUNQHGFUZ-HIAEU (25934)Indication: Fatty liver On: : Request LIPID PANEL (47725)Indication: Mixed hyperlipidemia On: : Request TSH (45623)Indication: Thyroid nodule On: : Request CBC W/AUTO DIFF WBC (42082)Indication: Uncontrolled type II diabetes mellitus On: :47 Request METABOLIC PANEL, COMPREHENSIVE (48219)Indication: Uncontrolled type II diabetes mellitus On: :47 Request LIPID PANEL (80323)Indication: Mixed hyperlipidemia On: :47 Request Vitamin D Hydroxy (93883)Indication: Vitamin D deficiency On: :47 Request NTZVG-MTYJNAPOEIE-WUBNU (41834)Indication: Fatty liver On: : Request CBC W/AUTO DIFF WBC (67739)Indication: Uncontrolled type II diabetes mellitus On: :26 Request LIPID PANEL (68411)Indication: Mixed hyperlipidemia On: : Request MICROALBUMIN: CREATININE RATIO (49627) AND (09867)Indication: Uncontrolled type II diabetes mellitus On: : Request TSH (59556)Indication: Acquired hypothyroidism On: : Request METABOLIC PANEL, COMPREHENSIVE (24327)Indication: Essential hypertension with goal blood pressure less than 130/80 On: : Request Vitamin D Hydroxy (36754)Indication: Vitamin D deficiency On: : Request CALCIFEDIOL (08560)Indication: Vitamin D deficiency On: 51-Hhf-441393:44 Request Comments: to be done Jun 2015 after done with ergocalciferol URINE GENESIS CULTURE (NITA COL COUNT) (04645)Indication: UTI (lower urinary tract infection) On: 8-Fvm-196375:22 Request LIPID PANEL (29330)Indication: Mixed hyperlipidemia On: 0-Qaf-018658:15 Request CBC W/AUTO DIFF WBC (18141)Indication: Uncontrolled type II diabetes mellitus On: 8-Dol-854403:14 Request METABOLIC PANEL, COMPREHENSIVE (97769)Indication: Uncontrolled type II diabetes mellitus On: 7-Iqo-746173:14 Request TSH (13907)Indication: Acquired hypothyroidism On: 1-Ifz-313083:14 Request WEHHD-DMJPIPPIFJP-CHCJN (89627)Indication: Fatty liver On: 0-Zfi-205732:14 Request CBC, Platelets & Auto Diff (85747)Indication: HX, PERSONAL, MALIGNANCY, LYMPHATIC NEC On: 79-Sah-48418:07 Request CBC WITH MANUAL DIFF (33172)Indication: Abnormal glucose tolerance test On: :33 Request MICROALBUMIN: CREATININE RATIO (30196) AND (44503)Indication: Abnormal glucose tolerance test On: :33 Request LIPID PANEL (05324)Indication: Mixed hyperlipidemia On: :31 Request METABOLIC PANEL, COMPREHENSIVE (61531)Indication: Abnormal glucose tolerance test On: :31 Request URINE GENESIS CULTURE-NITA COL COUNT (23871)Indication: Dysuria On: 04-Msy-744744:03 Request RETICULOCYTE COUNT (26286)Indication: Anemia On: :37 Request Iron (34096)Indication: Anemia On: :37 Request Ferritin (58031)Indication: Anemia On: :37 Request CBC (Auto) (21778)Indication: Anemia On: :37 Request CBC, Platelets & Auto Diff (61406)Indication: Fever On: :03 Request Metabolic Panel, Comprehensive (29492)Indication: Fever On: :03 Request HgA1C , Office (38755)Indication: Abnormal glucose tolerance test On: :55 Request CBC WITH MANUAL DIFF (73423)Indication: Abnormal glucose tolerance test On: :53 Request METABOLIC PANEL, COMPREHENSIVE (43322)Indication: Abnormal glucose tolerance test On: :53 Request LIPID PANEL (08038)Indication: Mixed hyperlipidemia On: :53 Request SHYCI-YFZSEIGRMNF-JJRLF (33461)Indication: Fatty liver On: 61-Tca-992912:53 Request PTT (Activated Partial Thromboplastin Time) (38304)Indication: Fatty liver On: :53 Request PT (Prothrobim Time) (24402)Indication: Fatty liver On: 29-Rhy-512589:53 Request MICROALBUMIN: CREATININE RATIO (61126) AND (45942)Indication: Abnormal glucose tolerance test On: 66-Vor-190561:49 Request Anti-TPO Antibody (45566)Indication: Acquired hypothyroidism On: :14 Request Comments: 1 month TSH (96364)Indication: Acquired hypothyroidism On: 97-Htc-787972:13 Request Comments: 1 month T4, FREE (THYROXINE) (18390)Indication: Acquired hypothyroidism On: :13 Request Comments: 1 month T3, FREE (TRIDOTHYRONINE) (69605)Indication: Acquired hypothyroidism On: 96-Skj-324795:13 Request Comments: 1 month CBC WITH MANUAL DIFF (85397)Indication: Abnormal glucose tolerance test On: :38 Request METABOLIC PANEL, COMPREHENSIVE (49966)Indication: Abnormal glucose tolerance test On: :38 Request LIPID PANEL (45920)Indication: Mixed hyperlipidemia On: :38 Request MICROALBUMIN: CREATININE RATIO (63575) AND (85877)Indication: Abnormal glucose tolerance test On: 31-Pnn-023222:56 Request CBC WITH MANUAL DIFF ([id number])Indication: Elevated LFTs On: 44-Dao-195688:56 Request METABOLIC PANEL, COMPREHENSIVE (00497)Indication: Elevated LFTs On: 84-Pjs-389432:56 Request LIPID PANEL (64704)Indication: Mixed hyperlipidemia On: 77-Adk-219352:56 Request TSH (09737)Indication: Acquired hypothyroidism On: :56 Request CBC WITH MANUAL DIFF ([id number])Indication: Essential hypertension with goal blood pressure less than 130/80 On: :34 Request TSH ([id number])Indication: Acquired hypothyroidism On: :34 Request METABOLIC PANEL, COMPREHENSIVE (12629)Indication: Fatty liver On: :33 Request LIPID PANEL (03031)Indication: Mixed hyperlipidemia On: 04-Oct-20119:33 Request MICROALBUMIN: CREATININE RATIO (04021) AND (85640)Indication: Uncontrolled type II diabetes mellitus On: :46 Request TSH (01918)Indication: Acquired hypothyroidism On: :46 Request LIPID PANEL (07180)Indication: Mixed hyperlipidemia On: :45 Request METABOLIC PANEL, COMPREHENSIVE (46358)Indication: Elevated LFTs On: :45 Request HgA1C , Office (32180)Indication: Uncontrolled type II diabetes mellitus On: :28 Request URINE GENESIS CULTURE-NITA COL COUNT (22518)Indication: Cystitis, acute On: :43 Request URINE GENESIS CULTURE-IDENTIFICATN (39025)Indication: Dysuria On: :10 Request CBC WITH MANUAL DIFF (73889)Indication: Headache On: :56 Request METABOLIC PANEL, COMPREHENSIVE (21695)Indication: Headache On: :56 Request LIPID PANEL (35604)Indication: Mixed hyperlipidemia On: :56 Request TSH ([id number])Indication: Acquired hypothyroidism On: 65-Wpg-930747:56 Request METABOLIC PANEL, COMPREHENSIVE (84632)Indication: Uncontrolled type II diabetes mellitus On: :28 Request HEPATIC FUNCTION PANEL (66075)Indication: Mixed hyperlipidemia On: :28 Request LIPID PANEL (59486)Indication: Mixed hyperlipidemia On: :28 Request LIPID PANEL (70955)Indication: Mixed hyperlipidemia On: :39 Request MICROALBUMIN: CREATININE RATIO (98041) AND (92997)Indication: Uncontrolled type II diabetes mellitus On: :39 Request CBC WITH MANUAL DIFF (64602)Indication: Essential hypertension with goal blood pressure less than 130/80 On: :39 Request METABOLIC PANEL, COMPREHENSIVE (50522)Indication: Elevated LFTs On: :39 Request TSH ([id number])Indication: Acquired hypothyroidism On: :36 Request TSH (40307)Indication: Thyroid nodule On: 30-Dtz-680968:20 Request METABOLIC PANEL, COMPREHENSIVE (44048)Indication: Elevated LFTs On: :19 Request LIPID PANEL ([id number])Indication: Mixed hyperlipidemia On: :19 Request C-REACTIVE PROTEIN (01281)Indication: Abnormal findings on diagnostic imaging of other specified body structures On: 34-Tuw-641137:02 Request SED RATE ERYTHROCYTE (22392)Indication: Abnormal findings on diagnostic imaging of other specified body structures On: 91-Gaf-837052: Request LDH (LD) (LACTATE DEHYDROGENASE) (72194)Indication: Abnormal findings on diagnostic imaging of other specified body structures On: 68-Sce-936919: Request Urine Protein Electrophoresis (UPEP) (73514)Indication: Abnormal findings on diagnostic imaging of other specified body structures On: 92-Kjg-351223: Request Serum Protein Electrophoresis (SPEP) (29970)Indication: Abnormal findings on diagnostic imaging of other specified body structures On: 79-Ntx-117622: Request METABOLIC PANEL, COMPREHENSIVE (84980)Indication: Diabetes mellitus type II, controlled On: :19 Request LIPID PANEL (27863)Indication: Mixed hyperlipidemia On: :19 Request URINE GENESIS CULTURE-NITA COL COUNT (84538)Indication: Dysuria On: 99-Xdx-948433:58 Request HEPATIC FUNCTION PANEL (36388)Indication: Elevated LFTs On: :18 Request LIPID PANEL ([id number])Indication: Mixed hyperlipidemia On: 95-Tqg-079109:17 Request MICROALBUMIN: CREATININE RATIO (62138) AND (63929)Indication: Uncontrolled type II diabetes mellitus On: :47 Request CBC WITH MANUAL DIFF ([id number])Indication: Uncontrolled type II diabetes mellitus On: 7-Ova-040817:47 Request METABOLIC PANEL, COMPREHENSIVE (80659)Indication: Uncontrolled type II diabetes mellitus On: :47 Request HEPATIC FUNCTION PANEL (01173)Indication: Elevated LFTs On: 9-Xhb-389466:45 Request LIPID PANEL ([id number])Indication: Mixed hyperlipidemia On: 6-Oem-205882:44 Request HEPATIC FUNCTION PANEL (84797)Indication: Fatty liver On: 7-Tef-907240:30 Request LIPID PANEL ([id number])Indication: Mixed hyperlipidemia On: 5-Pjo-181945:30 Request URINE GENESIS CULTURE (NITA COL COUNT) (55841)Indication: Low back pain potentially associated with radiculopathy On: 52-Paz-484081:03 Request MICROALBUMIN: CREATININE RATIO (27878) AND (70620)Indication: Dysuria On: 48-Ajd-021863:05 Request LIPID PANEL (76756)Indication: Dysuria On: 44-Ivq-238370:05 Request TSH ([id number])Indication: Dysuria On: 18-Rsf-113016:05 Request METABOLIC PANEL, COMPREHENSIVE (72233)Indication: Dysuria On: 22-Wsd-362638:04 Request CBC WITH MANUAL DIFF ([id number])Indication: Dysuria On: 67-Kkg-147248:04 Request URINE GENESIS CULTURE-NITA COL COUNT (00694)Indication: Dysuria On: 09-Jwf-769267:45 Request URINE GENESIS CULTURE (NITA COL COUNT) (69558)Indication: Dysuria On: 99-Qyz-347017:17 Request METABOLIC PANEL, COMPREHENSIVE (15294)Indication: Fatty liver On: 26-Jes-63951:58 Request Magnesium (49404)Indication: Palpitations On: :51 Request TSH (47365)Indication: Palpitations On: 73-Sam-79599:51 Request METABOLIC PANEL, COMPREHENSIVE (68884)Indication: Palpitations On: :51 Request CBC WITH MANUAL DIFF ([id number])Indication: Palpitations On: 52-Wvi-70223:51 Request GGT (Gamma Glutamyl Transferase) (68699)Indication: Elevated LFTs On: 16-Fxw-323211:16 Request HEPATIC FUNCTION PANEL ([id number])Indication: Elevated LFTs On: 31-Cfw-442675:16 Request VITAMIN B-12 (CYANOCOBALAMIN) (55097)Indication: Fatigue On: :23 Request MICROALBUMIN URINE QUANT (83165)Indication: Diabetes mellitus type II, controlled On: 83-Itg-90405:22 Request TSH (20691)Indication: Fatigue On: 19-Zcf-27956:22 Request CBC WITH MANUAL DIFF (43818)Indication: Diabetes mellitus type II, controlled On: 72-Acq-99653:22 Request METABOLIC PANEL, COMPREHENSIVE (63923)Indication: Diabetes mellitus type II, controlled On: 14-Cfa-26908:22 Request LIPID PANEL (04084)Indication: Mixed hyperlipidemia On: 47-Uso-61557:22 Request HEPATIC FUNCTION PANEL (50870)Indication: Mixed hyperlipidemia On: 04-Zld-296492:48 Request LIPID PANEL (72061)Indication: Mixed hyperlipidemia On: 95-Brk-132324:48 Request Comments: in 3 mos Planned Encounters Medical; [facility] 1 Month FU - On: 30-Aug-2018 11:00 [facility] Fast DO, Sangeetha A Fast DO, Sangeetha A Planned Procedures Flu Vaccine (Quadrivalent) 49790Qk: On: 21-Jul-2018 Intent Fast DO, Sangeetha A Fast DO, Sangeetha A SCREENING DIGITAL TOMOSYNTHESIS OF On: 21-Jul-2018 Intent BREAST ([id number])By: Fast DO, Sangeetha A Fast DO, Sangeetha A B 12 Injection, 1000 mcg (J3420)By: On: 31-May-2018 Intent Fast DO, Sangeetha A Fast DO, Sangeetha A Comments: Lot#[id number] EXP:[id number] given:left deltoid Given By: clarita albright ABN signed CT - Abdomen (IV Contrast Needed)By: On: 31-May-2018 Intent Fast DO, Sangeetha A Fast DO, Sangeetha A Doppler Ultrasound OtherBy: Fast DO, On: 19-May-2018 Intent Sangeetha A Fast DO, Sangeetha A Comments: left arm ULTRASOUND OF LIVER ([id number])By: On: 24-Feb-2018 Intent Jennifer Rios MD PFT - CompleteBy: Fast DO, Sangeetha A On: 21-Oct-2017 Intent Fast DO, Sangeetha A Comments: at [facility] SCREENING DIGITAL TOMOSYNTHESIS OF On: 21-Oct-2017 Intent BREAST (63246)By: Fast DO, Sangeetha A Comments: end of oct Fast DO, Sangeetha A EsophagramBy: Fast DO, Sangeetha A Fast On: 21-Oct-2017 Intent DO, Sangeetha A Comments: with 12 mm tablet ELECTROCARDIOGRAM, COMPLETE (ECG) On: 21-Oct-2017 Intent (69713)By: Fast DO, Sangeetha A Fast DO, Sangeetha A Flu Vaccine (Quadrivalent) 68545Rz: On: 07-Jun-2017 Intent Fast DO, Sangeetha A [...] DO, Sangeetha A DEXA SCAN AXIAL SKELETON (95676)By: On: 16-Aug-2016 Intent Fast DO, Sangeetha A Fast DO, Sangeetha A MAMMOGRAM, SCREENING, BOTH BREAST On: 16-Aug-2016 Intent (78348)By: Fast DO, Sangeetha A Fast DO, Sangeetha A ELECTROCARDIOGRAM, COMPLETE (ECG) On: 16-Aug-2016 Intent (81883)By: Fast DO, Sangeetha A Fast DO, Sangeetha A Flu Vaccine (Quadrivalent) 28911Ac: On: 16-Aug-2016 Intent Fast DO, Sangeetha A Fast DO, Sangeetha A Comments: FLUlot: [id number]:02/09site:Lt deltoidroute:IMdose:.5mlHEIDI MCLEOD ADMINISTRATION OF INFLUENZA VIRUS On: 16-Aug-2016 Intent VACCINE (G0008)By: Fast DO, Sangeetha A Fast DO, Sangeetha A Ultrasound - ThyroidBy: Fast DO, On: 10-Nov-2015 Intent Sangeetha A Fast DO, Sangeetha A Ultrasound - LiverBy: Fast DO, Sangeetha On: 10-Nov-2015 Intent A Fast DO, Sangeetha A Flu Vaccine (Quadrivalent) 58014Cz: On: 08-Aug-2015 Intent Fast DO, Sangeetha A Fast DO, Sangeetha A Comments: Lot #[id number]-L dltd, IMDose prefilled syringegiven by:SIMONE Jasso and ABN signed MAMMOGRAM, SCREENING, BOTH BREAST On: 08-Aug-2015 Intent (19577)By: Fast DO, Sangeetha A Fast DO, Sangeetha A Ultrasound - ThyroidBy: Fast DO, On: 08-Aug-2015 Intent Sangeetha A Fast DO, Sangeetha A Ultrasound - LiverBy: Fast DO, Sangeetha On: 08-Aug-2015 Intent A Fast DO, Sangeetha A ADMINISTRATION OF PNEUMOCOCCAL On: 01-Nov-2014 Intent VACCINE (G0009)By: Fast DO, Sangeetha A Fast DO, Sangeetha A PNEUM VAC ADLT/IMUMNOSPR, SBC/INTRM On: 01-Nov-2014 Intent (86566)By: Fast DO, Sangeetha A Fast DO, Comments: Lot:[id number]:02/29/16Dose:0.5mgRoute:imSite:l armGiven By:BATSHEVA signed Sangeetha A Ultrasound - LiverBy: Fast DO, Sangeetha On: 05-Jul-2014 Intent A Fast DO, Sangeetha A BILATERAL MAMMOGRAMS (45655)By: Fast On: 05-Jul-2014 Intent DO, Sangeetha A Fast DO, Sangeetha A Ultrasound - ThyroidBy: Fast DO, On: 05-Jul-2014 Intent Sangeetha A Fast DO, Sangeetha A ADMINISTRATION OF INFLUENZA VIRUS On: 05-Jul-2014 Intent VACCINE (G0008)By: Fast DO, Sangeetha A Comments: Influenzalot:[id number]:03/25/2015dose:0.5mLRoute: IMlocation:R armgiven by:marika Fast DO, Sangeetha A FLU VAC, SPLIT, >3 YEARS, INTRAMUSC On: 05-Jul-2014 Intent (14984)By: Arpan Irvin DOa A Fast DO, Sangeetha A INFUSION, NORMAL SALINE SOLUTION , On: 15-Apr-2014 Intent 250 CC (J7050)By: Angelina Winn CNP Rocephon Injection, 1 Gm (J0696)By: On: 15-Apr-2014 Intent Angelina Winn CNP Comments: Rocephin 1gmLot #[id number]. [id number] in R hand x 1 stick with [...] SPLIT, >3 YEARS, INTRAMUSC On: 27-Jul-2013 Intent (56258)By: Tavon DAVIS, Sangeetha A Fast DO, Sangeetha A Eprescribed prescriptions (G8553)By: On: 04-Jun-2013 Intent Delisa Melendez LPN SPECIMEN HANDLING/TRANSPORT On: 04-Jun-2013 Intent (51232)By: Delisa Melendez LPN INFUSION, NORMAL SALINE SOLUTION , On: 15-Feb-2013 Intent 1000 CC (Special Coverage Comments: 500 cc Instructions Apply. See MCM: 2049) (J7030)By: Jennifer Rios MD HYDRATION IV INFUSION, INIT On: 15-Feb-2013 Intent (23542)By: Jennifer Rios MD Ultrasound - ThyroidBy: Fast DO, On: 19-Jan-2013 Intent Sangeetha A Fast DO, Sangeetha A MAMMOGRAM, SCREENING, BOTH BREASTS On: 19-Jan-2013 Intent (00275)By: Fast DO, Sangeetha A Fast DO, Comments: due in january Sangeetha A Eprescribed prescriptions (G8553)By: On: 19-Jan-2013 Intent Isabella Grigsby Pulse Oximetry (28674)By: eSb, On: 29-Sep-2012 Intent Isabella Comments: 98% Eprescribed [...] MAMMOGRAM, SCREENING, BOTH BREASTS On: 24-Jan-2012 Intent (73280)By: Fast DO, Sangeetha A Fast DO, Sangeetha A TDAP VACCINE >7 IM (49415)By: Fast On: 04-Oct-2011 Intent DO, Sangeetha A Fast DO, Sangeetha A Comments: Lot:[id number]:08/12/13Amt:prefilledRoute:IMSite:right deltGiven By: NATALEE Spence Aerosol Treatment (20255)By: Blanca On: 26-Aug-2011 Intent Jennifer KING Pulse Oximetry (06853)By: Blanca On: 26-Aug-2011 Intent Jennifer KING SPECIMEN HANDLING/TRANSPORT On: 23-Jul-2011 Intent (44078)By: Delisa Melendez LPN VAC, SPLIT, >3 YEARS, INTRAMUSC On: 05-Jul-2011 Intent (67334)By: Isabella Grigsby Comments: Lot #[id number]/20/12Site-left deltoidgiven by: Lisa Bello LPN Ultrasound - ThyroidBy: Fast DO, On: 05-Jul-2011 Intent Sangeetha A Fast DO, Sangeetha A MAMMOGRAM, SCREENING, BOTH BREASTS On: 05-Jul-2011 Intent ([id number])By: Fast DO, Sangeetha A Fast DO, Sangeetha A ADMINISTRATION OF INFLUENZA VIRUS On: 05-Jul-2011 Intent VACCINE ([id number])By: Isabella Grigsbycribed prescriptions ([id number])By: On: 04-Jun-2011 Intent Nelli [address]ledo DO CT - Brain/HeadBy: Fast DO, Sangeetha A On: 07-Oct-2010 Intent Fast DO, Sangeetha A Comments: with and without contrast MAMMOGRAM, SCREENING, BOTH BREASTS On: 26-Jun-2010 Intent ([id number])By: Fast DO, Sangeetha A Fast DO, Sangeetha A ADMINISTRATION OF INFLUENZA VIRUS On: 26-Jun-2010 Intent VACCINE ([id number])By: Fast DO, Sangeetha A Fast DO, Sangeetha A FLU VAC, SPLIT, >3 YEARS, INTRAMUSC On: 26-Jun-2010 Intent ([id number])By: Fast DO, Sangeetha A Fast DO, Comments: Lot:[id number]:12/2010Dose:0.5mlRoute:IMSite:Left DeltoidGiven by: HEIDI Alberto A Ultrasound - ThyroidBy: Fast DO, On: 07-Jan-2010 Intent Sangeetha A Fast DO, Sangeetha A CT - Spine/CervicalBy: Fast DO, On: 15-Dec-2009 Intent Sangeetha A Fast DO, Sangeetha A Comments: 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 -- need to rule out Pulse Oximetry ([id number])By: Fast DO, On: 09-Jul-2009 Intent Sangeetha A Fast DO, Sangeetha A Spirometry ([id number])By: Fast DO, On: 10-Jul-2009 Intent Sangeetha A Fast DO, Sangeetah A Comments: good effort and curve- mild restriciton Radiology - Chest- PA and LatBy: On: 09-Jul-2009 Intent Fast DO, Sangeetha A Fast DO, Sangeetha A Pulse Oximetry ([id number])By: Fast DO, On: 10-Jul-2009 Intent Sangeetha A Fast DO, Sangeetha A Comments: 98 FLU VAC, SPLIT, >3 YEARS, INTRAMUSC On: 09-Jul-2009 Intent ([id number])By: Isabella Grigsby Comments: Lot #[id number]-right deltoidDose0.5mlgiven by Juventino Nye LPN IMMUNIZ ADMNIN, 1 VAC, SNGL/COMBO On: 09-Jul-2009 Intent ([id number])By: Isabella Grigsby EKG ([id number])By: Fast DO, Sangeetha A On: 10-Oct-2008 Intent [...] ADMNIN, 1 VAC, SNGL/COMBO On: 10-Jul-2008 Intent ([id number])By: Fast DO, Sangeetha A Fast DO, Sangeetha A FLU VAC, SPLIT, >3 YEARS, INTRAMUSC On: 10-Jul-2008 Intent ([id number])By: Fast DO, Sangeetha A Fast DO, Comments: injection given in left deltoid, pt tolerated welllot # [id number] Sangeetha A Holter Monitor 24 hrsBy: Fast DO, On: 10-Jul-2008 Intent Sangeetha A Fast DO, Sangeetha A EKG ([id number])By: Marlene Reddy On: 10-Jul-2008 Intent Comments: ekg [...] using tylenol and will go back to [place] if need be for shot-sugar fine-n foot [...] off metformin and lisinopril andthen went to [place] couple weeks then had multiple falls sent back to hospital and transferred to [facility] there for few weeks then to [facility] had lots of pt- and doing [...] Patient has been compliant with instructions. Current sd End: 01-Mar-2017 9:26 dication use: no side [...] anxiety and depression. Note for Physical exam: [facility] Wellness Physical- she is down 107 pounds [...] from Need for immunizati on against influenza), [facility] WELLNESS, Encounter for screening mammogram for breast [...] Reason for hospitalization abdominal pain (Went to [facility] on 02/28/15). Hospitalization details include: abnormal tests [...] high blood pressure, high cholesterol and other (concepcóin). Note for Follow up for chroni c [...] previously evaluated by a primary physician (at [facility]- Dr Reyes ). Presentation included lid swelling.Encounter [...] is helping her mood- has followup in [place] may 04 - her weight down 20 [...] sees heart failure doctor next week at [facility] - -- mood ebs and flows- sees [...] of all the problems -goes back to [facility] on tuesday and psych in 2 [...] or less). 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
--- OUTSIDE RECORDS SUMMARY | 2018-10-21 22:21 | XMS RPT_ITS | Continuity of Care Document ---
:1965 Author Organization [facility] Address [facility] [address] [address] Phone Care Team Providers Name Role Phone [...] Quantity: 30 {Capsule} Refills: 3 Ordered:01-Mar-2017 Sangeetha JVAEDbud Sangeetha A Start : 01-Mar-2017 Active Zofran [...] Quantity: 60 {Tablet} Refills: 3 Ordered:19-May-2018 Long RELAY DISPATCHER, Amelia L Start : 21-Oct-2017 End : [...] : 05-Jun-2018 End : 05-Jul-2018 Inactive ERGOCALCIFEROL, 06432BOCJ (Oral Capsule) 1 (one) Capsule Capsule twice [...] : 23-Jul-2011 End : 02-Aug-2011 Inactive MAXITROL, 3.5-88219-3.1 (Ophthalmic Ointment) apply to eye lids as [...] hs (50 MG) Inactive Comments:Dr. Hankins NYSTATIN, 208854QXSM/ML (Mouth/Throat Suspension) 5cc Suspension 5 times daily [...] Quantity: 30 {Tablet} Refills: 0 Ordered:19-May-2018 Long RELAY DISPATCHER, Amelia L Start : 12-May-2012 End : 19-May-2018 Discontinued Comments:This order discontinued per [facility]. ZOFRAN ODT, 4MG (Oral Tablet Dispersible) qd prn nausea (4 MG) End : 08-Aug-2015 Discontinued Comments:[facility] Allergies and Adverse Reactions Name Dates [...] and Lateral Result: Comments: See Note; NOTES: [facility] Imaging Services [address] [place] [address] Chest PA and Lateral MR#: [id number] Acct: [id number] Name: IFEOMA ASHRAF Rep #: [id number] : 1965 F 53 From: Dimitris Valderrama DO PCP: Sangeetha Irvin DO Status: REG CLI Study: Chest PA and Lateral Date of Exam: 07/14/18 Exam# [id number] Ordering Dr: Oscar Todd UTILITY PLANT OPERATIVE-C STUDY: X-RAY CHEST REASON FOR EXAM: Female, [...] Dimitris Valderrama DO at 8:47 EDT Tel [phone], Service support , CC: NUNU Todd; Sangeetha Irvin DO Crm Analyst: Signed 10-Jun-2018 Pacemaker Check Result: Comments: See Note; NOTES: [facility] [address] [place] [address] Pacemaker Check Date of Service: 06/09/18 09 MR#: [id number] Acct: [id number] Name: IFEOMA ASHRAF Rep #: [id number] : 1965 From: Danica Pickering Age/Sex: 53/F [place] [facility] Status: Signed Billing Codes ICD Device Billing: ICD Dev Prog Eval, Single 06/09/18 09 <Elec tronically signed by Danica Pickering > Date Danica Pickering 06/10/18 1406<Electronically signed by Boone Ch MD> Cosigner Signat ure: Date (if applicable) Boone Ch MD CC: 08-Jun-2018 Cardiology Visit Report Result: Comments: See Note; NOTES: [facility] [address] [place] [address] OFFICE VISIT Date of Service: 05/31/18 MR#: [id number] Acct: [id number] Name: IFEOMA ASHRAF Rep #: [id number] : 1965 Provider: NUNU Todd Age/Sex: 53/F Location[place] [facility] Status: Signed with Addenda ADDENDUM by NUNU Todd on 06/01/18 at 0746 Addendum entered and electronic ally signed by LUPE Black 06/01/18 07:46: Patient's outside records from [facility] admission from 04/07/2018 to 04/27/2018 were [...] ultimately discharged home with requested follow-up with [facility] neurology or local neurolo gist in [...] defibrillator (ICD) Z95.810 Generator change 11/13 @ [facility] LUPE Chapman Pacemaker check in February [...] prior to saving. Follow Up 6 Months (COOKER SYRUP) 05/31/18 (GIUSEPPE) 06/01/18 0747 <Electronically signed by [...] ral regurgitation and tricuspid regurgitation. She presented [facility] on March 08, 2018 after being found unresponsive in her bathroom. During this hospitalization she was found to have an acute left axillary and left brachial vein DVT and was started on Eliquis. She presented to [facility] emergency department in March 2018 for altered mental status. Her CT scan prior to ER visit showed possible hygroma versus subacute resolving subdural hematoma. She was transferred to [facility] for further evaluation. These records are [...] Rate 100 Intake Visit Reasons[facility] [employer] [facility] [place] Allergies amitriptyline Adverse Reaction (Severe, Verified 05/31/18 [...] meq PO DAILY #30 tab 05/31/18 [Rx] [facility] Medical History Nonrheumatic mitral (valve) insufficiency (Chronic) [...] rter-defibrillator (ICD) Z95.810 Generator change 11/13 @ [facility] LUPE Chapman Pacemaker check in February [...] prior to saving. Follow Up 6 Months (COOKER SYRUP) 05/31/18 (GIUSEPPE) Coding Level of Care Code [...] 1556 <Electronically signed by Oscar ANDRADE> Date [facility] Peyton griffin Signature: Date (if applicable) CC: Sangeetha Irvin DO 05-Jun-2018 Oncology Visit Report Result: Comments: See Note; NOTES: [facility] [address] [place] [address] OFFICE VISIT Date of Service: 06/05/18 1314 MR#: [id number] Acct: [id number] Name: TYLOR ASHRAF Rep #: [id number] : 1965 From: Simeon Gresham MD Age/Sex: 53/F Location: [facility] Status: Signed Subjective - Date of Service Date of Service:: 06/05/18 - Chief Complaint Follow up DLBCL - His tory of Present Illness 53-year-old woman was diagnosed with non-Hodgkin's lymphoma, diffuse large B cell, stage IV of the uterine cervix with MANAGER REGIONAL/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 She had [...] stem cell transplant in February 2007 at [facility] with complete remission. She is on [...] Chronic Code Visit Office Visits / Consults: 51967 OV L3 Est 1325 <Electronically signed by Simeon Gresham MD> Date Simeon Pacheco Signature: Date (if applicable) CC: 26-May-2018 Venous Duplex Upper Extremity Result: Comments: See Note; NOTES: [facility] Cardiovascular Services [address] [place] [address] Venous Duplex US, Unilateral 05/25/18 0903 MR#: [id number] Acct: [id number] Name: IFEOMA SILVA Rep #: [id number] : 1965 53 From: Juanjo Russo MD [...] Referring Physician: Sangeetha Irvin Performed By: Azucena Mñuiz RVT and Student 05/26/18 1635 Date Juanjo Russo MD CC: Sangeetha Irvin DO Date Dictated: 05/25/18 0903 Date Transcribed: 05/26/18 163 Crm Analyst: Signed 06-Apr-2018 Chest 1 View (Portable) Result: Comments: See Note; NOTES: [facility] Imaging Services [address] [place] [address] Chest 1 View (Portable) MR#: [id number] Acct: [id number] Name: MARIOWAQASIFEOMA Ashok Rep #: : 1965 F 53 From: Levy Lucas DO PCP: Sangeetha Irvin DO Status: PRE ER Study: Chest 1 View (Portable) Date of Exam: 04/06/18 Exam# [id number] Ordering Dr: Dejuan Bacon MD STUDY: X-RAY [...] , CC: Sangeetha Irvin DO; Dejuan Bacon Crm Analyst: Signed 05-Apr-2018 Brain/Head without Contrast Result: Comments: See Note; NOTES: [facility] Imaging Services [address] [place] [address] Brain/Head without Contrast MR#: [id number] Acct: [id number] Name: IFEOMA ASHRAF Rep # : [id number] : 1965 F 53 From: Levy Lucas DO PCP: Sangeetha Irvin DO Status: REG CLI Study: Brain/Head without Contrast Date of Exam: 04/05/18 Exam# [id number] Ordering Dr: Oscar Bartlett MD STUDY : [...] 14:06 EDT Tel , Service support 1- [phone], N.B. : The above information has been verbally conveyed by Levy Lucas DO to connected , Covering Physician, on 04/05/2018 14:06:03 (ET). CC: Sangeetha Irvin DO; Oscar Bartlett MD Crm Analyst: Signed 05-Apr-2018 Brain/Head without Contrast Result: Comments: See Note; NOTES: [facility] Imaging Services [address] [place] [address] Brain/Head without Contrast MR#: [id number] Acct: [id number] Name: IFEOMA ASHRAF Rep # : [id number] : 1965 F 53 From: Levy Lucas DO PCP: Sangeetha Irvin DO Status: REG CLI Study: Brain/Head without Contrast Date of Exam: 04/05/18 Exam# [id number] Ordering Dr: Oscar Bartlett MD STUDY : [...] 14:06 EDT Tel , Service support 1- [phone], N.B. : The above information has been verbally conveyed by Levy Lucas DO to connected , Covering Physician, on 04/05/2018 14:06:03 (ET). CC: Sangeetha Irvin DO; Oscar Bartlett MD Crm Analyst: Signed 31-Mar-2018 Cardiology Visit Report Result: Comments: See Note; NOTES: [facility] [address] [place] [address] OFFICE VISIT Date of Service: 03/31/18 MR#: [id number] Acct: [id number] Name: Ifeoma Ashraf Rep #: [id number] : 1965 Provider: Boone Ch MD Age/Sex: 53/F [place] [facility] Status: Signed HPI HPI Chief Complaint: Follow-up [...] who presented to the emergency department at [facility] on 03/08/2018 aft er being found unresponsive [...] care unit. She was eventually transferred to [facility]. Her major problem at this time [...] Lt brachial Intake Visit Reasons: DC to [facility] 03-14 Health Worker Required: No Accompanied by: mother Is [...] therapy. I would like to obtain a quality control chemist ry profile to be able to appropriately adjust any diuretics. At this juncture it may be prudent to add Lasix 40 mg a day to her current regimen. 2. Presence of implantable cardioverter-defibrillator (I CD) Z95.810 Generator change 11/13 @ [facility] Dr. Ahmadi Plan She does have [...] months. 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 (electronic news gathering editor) Coding Level of Care Code Off vis,est,level [...] Flow Screening Result: Comments: See Note; NOTES: [facility] Cardiovascular Services [address] [place] [address] 11/22/17 0803 MR#: [id number] Acct: [id number] Name: IFEOMA ASHRAF Rep #: [id number] [...] Dictated: 11/22/17 0803 Date Transcribed: 11/22/17 1518 Crm Analyst: Signed 18-Nov-2017 Office Visit Report Result: Comments: See Note; NOTES: [facility] [address] [place] [address]. 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 Name: Lan PRO Model: [id number] Serial #: [id number] Implant Date: 11/10/17 Year(s): 0 Implant Physician: [...] and No drainage Bibiana ds Lead #1 Superintendent [employer] Lead 1: [employer] Model Lead 1: 7121Q/58 Serial# Lead 1: [id number] Date Implanted Lead 1: 10/10/09 Position Lead [...] in other diseases classified elsewhere I43 11/17/17 1860 <Electronically signed by Danica Pickering > Date Danica Pickering 11/18/17 0813<Electronically signed by Noe Morris MD> Cosigner Signature: Date (if applicable) Noe Morris MD CC: 10-Nov-2017 Operative Report Result: Comments: See Note; NOTES: [facility] Medical Records Department [address] [place] [address] Operative Report 11/10/17 1148 MR#: [id number] Acct: [id number] Name: SALOME ASHRAF Rep #: [id number] : 1965 52 From: Lior Ahmadi MD PCP: Sangeetha Irvin DO Status: REG [facility] Y Location: [facility] Operative Report Date of Procedure: 11/10/17 Preoperative diagnosis is device at end of life for normal battery depletion. Postoperative diagnosis same as above. After informed consent and IV antibiotics the patient was brought to the [facility] and the ski n over [...] chart documents provided by the device company physician representative procedure summary. 11/10/17 1150 <Electronically signed by Lior Ahmadi MD > Date Lior Ahmadi MD CC: Sangeetha Irvin DO; Lior Ahmadi MD Signed 03-Nov-2017 Office Visit Report Result: Comments: See Note; NOTES: [facility] [address] [facility] [place] [address] OFFICE VISIT Date of Service: 11/03/17 MR#: [id number] Acct: [id number] Patient: IFEOMA ASHRAF Rep #: [id number] : 1965 Provider: Danica Pickering Age/Sex: 52/F [place] [facility] Status: Signed Comments Summary Comments: Written and [...] in office Interview Reason: routine follow up 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 Name: Current VR Model: 1211-36Q ICD Serial #: [id number] Implant Date: 10/10/09 Year(s): 8 Implant Physician: [...] Model Lead 1: 7121Q/58 Serial# Lead 1: [id number] Date Implanted Lead 1: 10/10/09 Position Lead [...] 11/03/17 1648<Electronically signed by Boone Ch MD> [facility] Signature: Date (if applicable) Boone Ch MD CC: 03-Nov-2017 Cardiology Visit Report Result: Comments: See Note; NOTES: [facility] [place] [address] OFFICE VISIT Date of Service: 11/03/17 MR#: [id number] Acct: [id number] Name: IFEOMA ASHRAF Rep #: [id number] : 1965 Provider: Boone Ch MD Age/Sex: 52/F Location: [facility] Status: Signed HPI HPI Details: IFEOMA ASHRAF, [...] 25 to 29 (25% per echo 03/11/2015) [facility] Medical History Type 2 diabetes mellitus without [...] of automatic cardioverter/defibrillator (AICD) Z95.810 10/06/2009 @ [facility] Plan She is status post ICD implantation [...] was also being followed up at the [facility]. She is also on spironolactone and sh [...] and Lateral Result: Comments: See Note; NOTES: [facility] Imaging Services [address] [place] [address] Chest PA and Lateral MR#: [id number] Acct: [id number] Name: IFEOMA ASHRAF Rep #: [id number] : 1965 F 52 From: Dimitris Valderrama DO PCP: Sangeetha Irvin DO Status: PRE [facility] Study: Chest PA and Lateral Date of Exam: 11/03/17 Exam# [id number] Ordering Dr: Boone Ch MD STUDY: X-RAY [...] Dimitris Valderrama DO at 18:21 EST Tel [phone], Se rvice support , CC: Boone Ch MD; Sangeetha Irvin DO Crm Analyst: Signed 14-Oct-2017 Office Visit Report Result: Comments: See Note; NOTES: [facility] [address] [place] [address]. [place] [address] OFFICE VISIT Date of Service: 10/12/17 MR#: [id number] Acct: [id number] Patient: IFEOMA ASHRAF Rep #: [id number] : 1965 Provider: Danica Pickering Age/Sex: 52/F [place] [facility] Status: Signed Comments Summary Comments: Single Chamber ICD Evaluation: Interrogation shows No VT/VF episodes since . No Alerts noted. Left pectoral pocket/incision w/o s/s of infection or erosion. Pt offers no cardiac complaints. Presenting rhythm shows Sinus Tachycardia @ 105 bpm. Left pectoral pocket/incision w/o s/s of infection or erosion. PULL THROUGH HOOKER=0%. Battery longevity approx 2.9 mos. At device check in June device showed longevity of 14 mos. D/T longevity decreasing quickly pt scheduled for ICD generator el gilliam with Dr. Ahmadi on 11/10/17 @ [facility]. Lead impedances, sensing and pace/sense threshold remain stable. No parameter changes made. Counters cleared. Pt scheduled for o.v and teaching on 11/03/17 and ICD g enerator change on 11/10/17. 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 Model Lead 1: 7121Q/58 Serial# Lead 1: [id number] Date Implanted Lead 1: 10/10/09 Position Lead [...] IV Contrast Result: Comments: See Note; NOTES: [facility] Imaging Services [address] [place] [address] Abdomen WITH IV Contrast MR#: [id number] Acct: [id number] Name: IFEOMA ASHRAF Rep #: [id number] : 1965 F 52 From: Carl Vincent MD PCP: Sangeetha Irvin DO Status: REG CLI Study: Abdomen WITH IV Contrast Date of Exam: 06/15/17 Exam# [id number] Ordering Dr: Analisa Conway MD STUDY: CT [...] CC: Analisa Conway MD; Sangeetha Irvin DO Crm Analyst: Signed 15-Jun-2017 Spine Cervical without Contras Result: Comments: See Note; NOTES: [facility] Imaging Services [address] [place] [address] Spine Cervical without Contras MR#: [id number] Acct: [id number] Name: IFEOMA ASHRAF p #: [id number] : 1965 F 52 From: Zev Mandujano MD PCP: Sangeetha Irvin DO Status: REG CLI Study: Spine Cervical without Contras Date of Exam: 06/15/17 Exam# [id number] Ordering Dr: Analisa Conway MD STUDY: CT [...] CC: Analisa Conway MD; Sangeetha Irvin DO Crm Analyst: Signed 10-Feb-2017 Spine Lumbar without Contrast Result: Comments: See Note; NOTES: [facility] Imaging Services [address] [place] [address] Verdana 4d Spine Lumbar without Contrast MR#: [id number] Acct: [id number] Name: MARIOWAQASMARISEL Pulido Rep #: [id number] : 1965 F 51 From: Brian Gill MD PCP: Sangeetha Irvin DO Status: REG CLI Study: Spine Lumbar without Contrast Date of Exam: 02/10/17 Exam# [id number] Ordering Dr: Analisa Carr i, MD STUDY: [...] CC: Analisa Conway MD; Sangeetha Irvin DO Crm Analyst: Signed 20-Jan-2017 Liver Result: Comments: See Note; NOTES: [facility] Imaging Services [address] [place] [address] Zach 4d Liver MR#: [id number] Acct: [id number] Name: IFEOMA ASHRAF Rep #: [id number] : 1965 F 51 From: Vincent Bui DO PCP: Sangeetha Irvin DO Status: REG CLI Study: Liver Date of Exam: 01/20/17 Exam# [id number] Ordering Dr: Sangeetha Irvin DO STUDY: ABDOMINAL [...] Vincent Bui DO at 23:43 EDT Tel [phone], Service support , CC: Sangeetha Irvin DO Crm Analyst: Signed 20-Jan-2017 Thyroid Result: Comments: See Note; NOTES: [facility] Imaging Services [address] [place] [address] Verdana 4d Thyroid MR#: [id number] Acct: [id number] Name: IFEOMA ASHRAF Rep #: [id number] : 1965 F 51 From: Jin Rolon PCP: Sangeetha Irvin DO Status: REG CLI Study: Thyroid Date of Exam: 01/20/17 Exam# [id number] Ordering Dr: Sangeetha Irvin DO STUDY: THYROID [...] Service support , CC: Sangeetha Irvin DO Crm Analyst: Signed 17-Nov-2016 Dexa Bone Density Study (HP) Result: Comments: See Note; NOTES: [facility] Imaging Services [address] [place] [address] Verdana 4d Dexa Bone Density Study (HP) MR#: [id number] Acct: [id number] Name: COL HARPAL ASHRAF Rep #: [id number] : 1965 F 51 From: Prashant Delgadillo MD PCP: Sangeetha Irvin DO Status: REG CLI Study: Dexa Bone Density Study (HP) Date of Exam: 11/17/16 Exam# [id number] Ordering Dr: Sangeetha Irvin DO STUDY: DUAL [...] Prashant Delgadillo MD at 10:52 EST Tel [phone], Service support [phone], CC: Sangeetha Irvin DO Crm Analyst: Signed 17-Nov-2016 SCREENING MAMM (CAD), BILAT Result: Comments: See Note; NOTES: [facility] Imaging Services [address] [place] [address] Verdana 4d SCREENING MAMM (CAD), BILAT MR#: [id number] Acct: [id number] Name: SALOME ASHRAF Rep #: [id number] : 1965 F 51 From: Prashant Delgadillo MD PCP: Sangeetha Irvin DO Status: [facility] CLI Study: SCREENING MAMM (CAD), BILAT Date of Exam: 11/17/16 Exam# [id number] Ordering Dr: Gary Irvin DO MAMMOGRAPHY - [...] biopsy of a clinically suspiciou s abnormality. [id number] Electronically Signed: Prashant Delgadillo MD at 12:55 EST Tel [phone], Service support [phone], CC: Sangeetha Irvin DO Crm Analyst: Signed 17-Nov-2016 SCREENING MAMM (CAD), BILAT Result: Comments: See Note; NOTES: [facility] Imaging Services [address] [place] [address] Verdana 4d SCREENING MAMM (CAD), BILAT MR#: [id number] Acct: [id number] Name: SALOME ASHRAF Ashok Rep #: [id number] : 1965 F 51 From: Prashant Delgadillo MD PCP: Sangeetha Irvin DO Status: REG CLI Study: SCREENING MAMM (CAD), BILAT Date of Exam: 11/17/16 Exam# [id number] Ordering Dr: Gary Irvin DO ADDENDUM by [...] delay biopsy of a clinically suspicious abnormality. [id number] Electronically Signed: Prashant Delgadillo MD at 13:07 EST Tel [phone], Service support [phone], 11/17/16 1317 Date cc: Sangeetha Irvin DO * Signed [...] delay biopsy of a clinically suspicious abnormality. [id number] Electronically Signed: Prashant Delgadillo MD at 12:55 EST Tel [phone], Ser vice support [phone], CC: Sangeetha Irvin DO Crm Analyst: Signed 19-Dec-2015 Liver Result: Comments: See Note; NOTES: [facility] Imaging Services [address] [place] [address] Verdana 4d Liver MR#: [id number] Acct: [id number] Name: IFEOMA ASHRAF Rep #: [id number] : 1965 F 50 From: Ziggy Santos MD PCP: Sangeetha Irvin DO Status: REG CLI Study: Liver Date of Exam: 12/19/15 Exam# [id number] Ordering Dr: Sangeetha Irvin DO STUDY: ABDOMINAL [...] Service support , CC: Sangeetha Irvin DO Crm Analyst: Signed 19-Dec-2015 Thyroid Result: Comments: See Note; NOTES: [facility] Imaging Services [address] [place] [address] Verdana 4d Thyroid MR#: [id number] Acct: [id number] Name: IFEOMA ASHRAF ep #: [id number] : 1965 F 50 From: Ziggy Santos MD PCP: Sangeetha Irvin DO Status: REG CLI Study: Thyroid Date of Exam: 12/19/15 Exam# [id number] Ordering Dr: Sangeetha Irvin DO STUDY: THYROID [...] Service support , CC: Sangeetha Irvin DO Crm Analyst: Signed 14-Aug-2015 Bilat Scrn Digital AND CAD Result: Comments: See Note; NOTES: [facility] Imaging Services [address] [place] [address] Verdana 4d Bilat Scrn Digital AND CAD MR#: [id number] Acct: [id number] Name: IFEOMA ASHRAF Rep #: [id number] : 1965 F 50 From: Prashant Delgadillo MD PCP: Sangeetha Irvin DO Status: REG CLI Study: Bilat Scrn Digital AND CAD Date of Exam: 08/14/15 Exam# [id number] Order ing Dr: Sangeetha Irvin DO MAMMOGRAPHY [...] Prashant Delgadillo MD at 10:49 EST Tel [phone], Service support [phone], CC: Sangeetha Irvin DO Crm Analyst: Signed 10-Mar-2015 Emergency Department Summary Result: Comments: See Note; NOTES: [facility] Medical Records Department [address] [place] [address] Emergency Department Summary MR#: [id number] Acct: [id number] Name: IFEOMA RASMUSSEN Rep #: [id number] : 1965 49 From: Mayito Roldan DO [...] way. Mayito Roldan DO T: NTS JOB: [id number] 03/10/15 2329 <Electronically signed by Mayito Roldan DO> Date Rosious Grecocarmelo DAVIS CC: Sangeetha Irvin DO Date Dictated: 02/28/15824 Date Transcribed: 02/28/15824 Crm Analyst: Signed 02-Mar-2015 Emergency Department Summary Result: Comments: See Note; NOTES: [facility] Medical Records Department [address] [place] [address] Emergency Department Summary MR#: [id number] Acct: [id number] Name: IFEOMA RASMUSSEN Rep #: [id number] : 1965 49 From: Alejandro Lopez DO [...] The patient has plans to [facility] on [facility]. I will give her local surgeon's name if she wants to speak with them or she can certainly also speak with Dr. Irvin. CLINICAL IMPRESSION: Biliary colic. Alejandro Lopez DO T: ROCK JOB: [id number] 03/02/1543 <Electronically signed by Alejandro Lopez DO> Date Alejandro Lopez DO CC: Sangeetha Irvin DO Date Dictated: 718 Date Transcribed: 02/28/15718 Crm Analyst: Signed 28-Feb-2015 Discharge Instruction Result: Comments: See Note; NOTES: [facility] Medical Records Department [address] [facility] [place] [address] Discharge Instruction 02/28/15638 MR#: [id number] Acct: [id number] Name: IFEOMA ASHRAF Rep #: [id number] : 1965 49 From: Alejandro Lopez DO [...] problems, contact your doctor. Call [facility] ([phone]) or report to the closest ergency Room. Call 911 if necessary. 02/28/15639 <Electronically signed by Alejandro Lopez DO> Date Alejandro Lopez DO Cosign er Signature (If Indicated): Date CC: Sangeetha Irvin DO 28-Feb-2015 Gallbladder Result: Comments: See Note; NOTES: [facility] Imaging Services [address] [place] [address] Ultrasound Report MR#: [id number] Acct: [id number] Name: IFEOMA ASHRAF Rep #: [id number] : 1965 F 49 From: Prashant Delgadillo MD PCP: Sangeetha Irvin DO Status: REG ER Study: Gallbladder Date of Exam: 02/28/15 Exam# [id number] Ordering Dr: Alejandro Lopez DO STUDY: ABDOM [...] Prashant Delgadillo MD at 8:15 EDT Tel [phone], Service support [phone], CC: Alejanrdo Lopez DO; Sangeetha Irvin DO Crm Analyst: Signed 11-Feb-2015 Spine Cervical without Contras Result: Comments: See Note; NOTES: [facility] Imaging Services [address] [place], [place] [address] [address] CAT Scan Report MR#: [id number] Acct: [id number] Name: IFEOMA ASHRAF Rep #: [id number] : 1965 F 49 From: Prashant Delgadillo MD PCP: Sangeetha Irvin DO Status: REG CLI Study: Spine Cervical without Contras Date of Exam: 02/11/15 Exam# [id number] Ordering Dr: Analisa Conway MD STUDY: CT [...] Prashant Delgadillo MD at 9:49 EDT Tel [phone], Service support [phone], CC: Analisa Conway MD; Sangeetha Irvin DO Crm Analyst: Signed 18-Jul-2014 Bilat Scrn Digital & CAD Result: Comments: See Note; NOTES: [facility] Imaging Services [address] [place] [address] Breast Imaging Report MR#: [id number] Acct: [id number] Name: IFEOMA ASHRAF Rep # : [id number] : 1965 F 49 From: Prashant Delgadillo MD PCP: Sangeetha Irvin DO Status: REG CLI Exam# [id number] Ordering Dr: Sangeetha Irvin DO MAMMOGRAPHY - [...] Prashant Delgadillo MD at 8:36 EDT Tel [phone], [employer] System[employer] ce support [phone], CC: Sangeetha Irvin DO Crm Analyst: Signed 18-Jul-2014 Liver Result: Comments: See Note; NOTES: [facility] Imaging Services [address] [place] [address] Ultrasound Report MR#: [id number] Acct: [id number] Name: IFEOMA ASHRAF Rep #: [id number] : 1965 F 49 From: Prashant Delgadillo MD PCP: Sangeetha Irvin DO Status: REG CLI Study: Liver Date of Exam: 07/18/14 Exam# [id number] Ordering Dr: Sangeetha Irvin DO STUDY: ABDOMINAL [...] Prashant Delgadillo MD at 9:34 EDT Tel [phone], Service support [phone], CC: Sangeetha Irvin DO Crm Analyst: Signed 18-Jul-2014 Thyroid Result: Comments: See Note; NOTES: [facility] Imaging Services [address] [place] [address] Ultrasound Report MR#: [id number] Acct: [id number] Name: IFEOMA ASHRAF Rep #: [id number] : 1965 F 49 From: Prashant Delgadillo MD PCP: Sangeetha Irvin DO Status: REG CLI Study: Thyroid Date of Exam: 07/18/14 Exam# [id number] Ordering Dr: Sangeetha Irvin DO STUDY: THYROID [...] Delgadillo MD at 8:41 EDT T el [phone], Service support [phone], CC: Sangeetha Irvin DO Crm Analyst: Signed 05-Feb-2014 Brain/Head W/WO Contrast Result: Comments: See Note; NOTES: [facility] Imaging Services [address] [place] [address] CAT Scan Report MR#: [id number] Acct: [id number] Name: IFEOMA ASHRAF Rep #: [id number] : 1965 F 48 From: Prashant Delgadillo MD PCP: Sangeetha Irvin DO Status: REG CLI Study: Brain/Head W/WO Contrast Date of Exam: 02/05/14 Exam# [id number] Ordering Dr: Fast, Sangeetha DO STUD Y: [...] Prashant Delgadillo MD at 9:19 EDT Tel [phone], Service support [phone], CC: Sangeetha Irvin DO Crm Analyst: Signed Immunization Name Dates Details Influenza (3 years and up) on: 10-Jul-2008 Comments: injection given in left deltoid, pt tolerated welllot # [id number] Influenza (3 years and up) on: 09-Jul-2009 Comments: Lot #[id number]-right deltoidDose0.5mlgiven by Juventino Nye LPN Family History [...] kg/m2 Body Surface Area Calculated 2.02 m2 99-Eya-137537:59 Temperature 97.9 f Comments: Method: Temporal Pulse [...] W/Diff, Automated Comments: BMP TO [facility].CBCD, TSH, B12 TO DR. SANGEETHA IRVIN.[facility] Lursnopkcf8086 [facility], [place], [id number] Absolute Lymph 1.16 {X10_3/ul} (Normal) Range: 0.83-4.51 [...] 4.2-5.4 WBC 8.0 K/mm3 (Normal) Range: 4.4-11.0 59-Vpf-55384:22 Vitamin B12 659 pg/mL (Normal) Comments: BMP TO [facility].CBCD, TSH, B12 TO DR. SANGEETHA IRVIN.[facility] Eqxvwdhtdz3785 [place], [place], [address] Range: 211-911 97-Djc-37069:20 Basic Metabolic Profile (BMP) Comments: BMP TO [facility].CBCD, TSH, B12 TO DR. SANGEETHA IRVIN.[facility] [address]ruz3946 [place], [address] GAP 9 (Normal) Range: 5-15 [...] A.D.A. criteria.Please note revised GLUCOSE reference range ieigxosep90/02/2018. 46-Zes-12791:20 Thyroid Stim Hormone (TSH) Comments: BMP TO [facility].CBCD, TSH, B12 TO DR. SANGEETHA IRVIN.[facility] Dpgmffdbob1383 [facility] [address]. [place], [place], [address] TSH 4.09 {uIU/mL} (Abnormal) Range: 0.358-3.74 86-Lxw-251215:23 Basic Metabolic Profile (BMP) Comments: [facility] Recsnnhdpv2136 [facility] [place], [place], [address] GAP 7 (Normal) Range: 5-15 CO2 30.0 [...] A.D.A. criteria.Please note revised GLUCOSE reference range vwmoqhfnx36/02/2018. 71-Soc-447907:23 BNP,B-Type NATRIURETIC PEPTIDE Comments: [facility] Nhndymcnjp6110 [facility] [address]. [place], [place], [address] B-TYPE JACKIE PEP 892.7 pg/mL (Abnormal) Range: 0-100 49-Mcc-267248:23 CBC W/Diff, Automated Comments: [facility] Jsiyrgktne2619 [facility] [address]. [place], [place], [address] Absolute Lymph 1.23 {X10_3/ul} (Normal) Range: 0.83-4.51 [...] 4.2-5.4 WBC 7.2 K/mm3 (Normal) Range: 4.4-11.0 16-Vio-213535:41 CBC W/Diff, Automated Comments: Reason for Laboratory Test .[facility] [address]jafk[address] [place], [place], [address] Absolute Lymph 0.85 {X10_3/ul} (Normal) Range: 0.83-4.51 [...] 4.2-5.4 WBC 5.7 K/mm3 (Normal) Range: 4.4-11.0 22-Beh-762542:41 Comprehensive Metabolic Profil Comments: Reason for Laboratory Test .Serial Specimen #1, #2 or #3? [facility] Vgiqjotpqv1703 [place], [address] GAP 8 (Normal) Range: 5-15 CO2 28.0 [...] A.D.A. criteria.Please note revised GLUCOSE reference range nozqhmojn80/02/2018. 24-Ntz-623763:41 LDH 224 U/L (Normal) Comments: Reason for Laboratory Test .Serial Specimen #1, #2 or #3? [facility] Cskbhjytyy3974 [address] [place], [place], [address] Range: 84-246 9-Ezb-703504:41 URINE GENESIS CULTURE-IDENTIFICATN Comments: add to urine in lab; PATIENT NOT FASTINGPERFORMED BY: [facility] [id number] Information: SRC: ([id number]) Result 1 ENTEAE (Abnormal) Comments: Enterobacter aerogenes1,000 [...] Range: 0.0-8.3 Comments: Khanh ECLIA methodologyPerformed at: [facility] LabCoCarrier ClinicPlribz[address] [place] [address] [id number] Director: Omar Hood PhD, Phone: [phone] :46 CBC W/Diff, Automated Comments: [facility] Jqmebzxpst7101 [address] [place], [place], [address] Absolute Lymph 0.95 {X10_3/ul} (Normal) Range: 0.83-4.51 [...] 4.2-5.4 WBC 5.6 K/mm3 (Normal) Range: 4.4-11.0 66-Loe-22687:46 Comprehensive Metabolic Profil Comments: PLEASE ADD T3F T4F TO BLOOD FROM 05-25-[address] Wglfonmkwr9345 [facility] [place], [place], [address] GAP 9 (Normal) Range: 5-15 CO2 28.0 [...] A.D.A. criteria.Please note revised GLUCOSE reference range ofnoezryf14/02/2018. :46 Digoxin Level Comments: [facility] [address] [place], [place], [address] DIG 0.71 ng/mL (Abnormal) Range: 0.80-2.00 :46 Free T3 Comments: PLEASE ADD T3F T4F TO BLOOD FROM 05-25-[address] Oxajebgbea5044 [facility] [address] [place], [place], [address] FREE T3 3.2 pg/mL (Normal) Range: 2.18-3.98 :46 Hemoglobin A1c Comments: [address] [place], [place], [address] HGB A1C 5.4 % (Normal) Range: 4.2-6.3 :46 Lipid Profile Comments: PLEASE ADD T3F T4F TO BLOOD FROM 05-25-[address] Senbwvyixj2765 [address] [place], [place], [address] VLDL 22 mg/dL (Normal) Range: 5-40 LDL [...] High Risk :46 Microalb:Creat Ratio,Random UR Comments: [facility] V[address]cfugm6[address] [place], [address] MALB:CREAT 7.8 {mg/g_CRE} (Normal) MICROALBUMIN,UR 10.9 mg/L (Normal) UR CREAT 139.00 mg/dL (Normal) :46 T4 Free Direct Comments: PLEASE ADD T3F T4F TO BLOOD FROM 05-25-[address] Mnqdchszuy7092 [address] [place], [place], [address] T4 FREE DIRECT 1.11 ng/dL (Normal) Range: 0.76-1.46 :46 Thyroid Stim Hormone (TSH) Comments: PLEASE ADD T3F T4F TO BLOOD FROM 05-25-[address] Nqabzahzxn5969 [place], [address] TSH 0.31 {uIU/mL} (Abnormal) Range: 0.358-3.74 :46 Urinalysis, Complete Comments: How was Urine Obtained? CLEAN [facility] Udcnkdwaxp1897 [place], [address] MUCUS, URINE 0 SEEN {/hpf} [...] :46 Vitamin B12 368 pg/mL (Normal) Comments: [facility] Sfj[address]zogrf6[address] [place], [address] Range: 211-911 38-Qqq-50589:46 Vitamin D,25 Hydroxy Comments: [facility] Fwovvcpnla3160 [place], [address] Vitamin D 25-OH 64.5 ng/mL (Normal) Range: 29.95-100.01 Comments: Vitamin D 25(OH) Status Range Deficiency <20 ng/mL (50nmol/L) Insuffciency 20 - 30 ng/mL (50 - 75 nmol/L) Sufficiency 30 - 100 ng/mL (75 - 250 nmol/L) Toxicity >100 ng/mL (>250 nmol/L) 61-Qkl-990910:52 Urinalysis, Complete Comments: Order Date: 04/06/18Has pt arrived? YHow was Urine Obtained? [facility] Frsypvjnni36[address] [place], [address] HYALINE CAST 5-10 SEEN {/lpf} (Normal) [...] (Normal) CLARITY Cloudy (Normal) COLOR Yellow (Normal) 07-Bai-904724:30 CBC W/Diff, Automated Comments: [facility] [address]xbawefygs[address]3 [address] [place], [place], [address] OVALOCYTE RARE (Normal) MACROCYTE 1+ (Normal) ANISO [...] 4.2-5.4 WBC 9.1 K/mm3 (Normal) Range: 4.4-11.0 46-Pzq-171052:30 Comprehensive Metabolic Profil Comments: [facility] [address]xcsrspy5[address] [place], [place], [address] GAP 12 (Normal) Range: 5-15 CO2 30.0 [...] Comments: Please note revised GLUCOSE reference range qjtfgoraj49/02/2018. 07-Kfa-193194:30 Lactic Acid Comments: Yes/No query for Sepsis Lactate Rule [facility] Uptexypnnv8[address] [place], [place], [address] LACTIC ACID 6.7 mmol/L (Abnormal) Range: 0.4-2.0 Comments: Critical Result(s) Called Lisa RIVERA at: 20:23: by: BRITTANY TORRES 07-Nrc-152921:30 Partial Thromboplast Time Comments: [facility] [address]ubbff4[address] [place], [place], [address] PTT 41.3 s (Abnormal) Range: 24.1-36.2 16-Lqg-803111:30 Prothrombin Time w/INR Comments: [facility] [address]msikobpnp68[address] [place], [place], [address] INR 2.3 (Normal) PROTIME 25.6 s (Abnormal) Range: 11.7-14.9 02-Bdx-277945:30 Troponin-I Comments: [facility] Mcnwxsrcdg7[address] [place], [place], [address] TROPONIN-I 0.046 ng/mL (Abnormal) Comments: TROPONIN-I EXPECTED VALUES <0.045 Negative 0.045 - 0.590 Consistent with Cardiac Damage > OR = 0.600 Critical Value Not every elevated troponin is indicative of MN. T hesevalues should be used with clinical judgement in examiningthe patient's clinical picture for diagnosis. To establisha diagnosis of MN versus myocardial injury, there must be ademonstrated rise and/ or fall in the troponin values, inaddition to ischemic symptoms, EKG changes, new regionalwall motion abnormality, and/or angiographical evidence. PLEASE NOTE: REFERENCE RANGES EDITED 02/06/1805-Apr-201821-Grm-945270:08 Ammonia Comments: [facility] Dqrkuxtnuq6917 [address] [place], [place], [address] AMMONIA 20.0 umol/L (Normal) Range: 11-32 53-Rqs-414946:08 CBC-Complete Blood Cnt No Diff Comments: [facility] Kzirpigwoc8588 [address] [place], [address] MPV 10.6 fL (Normal) Range: 6.2-12.0 PLT [...] 4.2-5.4 WBC 6.6 K/mm3 (Normal) Range: 4.4-11.0 90-Jvl-214142:08 Comprehensive Metabolic Profil Comments: [facility] Djxowevzch7722 [address] [place], [place], [address] GAP 9 (Normal) Range: 5-15 CO2 35.0 [...] Comments: Please note revised GLUCOSE reference range auwyuxqgb51/02/2018. 42-Iae-971382:08 Differential Comment Comments: [facility] Llkmecinmk9[address] [place], [place], [address] SMEAR COMMENT COMMENT (Normal) Comments: SLIDE SCANNED - 1+ ANISO NOTED. 36-Kgs-61548:55 Urinalysis, Complete Comments: How was Urine Obtained? [facility] Ndnhrpcpsq8771 [address] [place], [place], [address] AMORPHOUS 2+ (Normal) HYALINE CAST 5-10 SEEN [...] (Normal) :55 Urine Drug Screen (VISTA) Comments: [facility] Ptminyovfq3242 [address] [place], [place], [address] TO BE CONFIRMED (Normal) Comments: CONFIRMATORY TESTING [...] TESTING MUST BE ORDERED SEPARATELY. USE TESTMNEMONIC: MACA :59 Bedside Glucose Comments: [facility] LaboratoryPoint of Lxfy[address] [place], [place] [address] BEDSIDE GLU 169 mg/dL (Abnormal) Range: 70-110 Comments: MANAGEMENT OF PATIENT CARE PER NURSING PROTOCOL :35 Basic Metabolic Profile (BMP) Comments: [facility] Hefhrbtoha0684 [address] [place], [place], [address] GAP 16 (Abnormal) Range: 5-15 CO2 15.0 mmol/L (Abnormal) Range: 21.0-32.0 CL 104 mmol/L (Normal) Range: 98-107 K 6.2 mmol/L (Abnormal) Range: 3.5-5.1 Comments: Critical Result(s) Called at: 01:06:28 03/08/2018 by:ANSLEY STANFORD,COLLECTION SYSTEMS MODELER NA 135 mmol/L (Abnormal) Range: 136-145 CA [...] A.D.A. criteria.Please note revised GLUCOSE reference range sihfgsuub01/02/2018. 49-Ovn-476419:59 Acetaminophen (Tylenol) Level Comments: [facility] [address]iwfyhp15[address] [place], [place], [address] ACETAMINOPHEN 4.9 ug/mL (Abnormal) Range: 10.0-30.0 Comments: Slight Icterus, Result may be falsely decreased. :59 Acetone Serum Comments: [facility] Hteaxeitnc7439 [place], [address] ACETONE SERUM NEGATIVE (Normal) 93-Aqp-428711:59 Alcohol, Blood (Medical)-Serum Comments: [facility] Kicxzztbxc3049 [place], [address] SERUM ETOH 8.0 mg/dL (Normal) Comments: The serum:whole blood ethanol ratio is approximately 1.14and varies slightly with hematocrit.Medical Alcohol reference interval and critical value innon-tolerant individuals; 50 - 100 Impairment 100 Intoxication 100 - 250 Severe Poisoning 250 - 400 Deep/possible fatal coma 09-Zgj-097696:59 Digoxin Level Comments: [facility] [address] [place], [place], [address] DIG 0.32 ng/mL (Abnormal) Range: 0.80-2.00 08-Rlm-585411:59 Lactic Acid Comments: Yes/No query for Sepsis Lactate Rule [facility] Xmtzytukur8807 [address] [place], [place], [address] LACTIC ACID 12.4 mmol/L (Abnormal) Range: 0.4-2.0 Comments: Critical Result(s) Called at: 00:52:58 03/08/2018 by:ANSLEY OWENSCOLLECTION SYSTEMS MODELER 17-Vnt-929352:59 Partial Thromboplast Time Comments: [place] [address] [place], [address] PTT 33.7 s (Normal) Range: 24.1-36.2 19-Wwn-169045:59 Prothrombin Time w/INR Comments: [place] [address] [place], [address] INR 2.4 (Normal) PROTIME 26.4 s (Abnormal) Range: 11.7-14.9 :59 Salicylate Comments: [place] [address] [place], [address] SALICYLATE < 1.7 mg/dL (Abnormal) Range: 2.8-20.0 Comments: Slight Icterus, Result may be falsely decreased. :02 Blood Gases by [facility] Comments: [place] [address] [place] [address] SO2 ISTAT 99 % (Normal) [...] TYPE ART (Normal) :52 Bedside Glucose Comments: [place] [address] [place] [address] BEDSIDE GLU 214 mg/dL (Abnormal) Range: 70-110 Comments: MANAGEMENT OF PATIENT CARE PER NURSING PROTOCOL 06-Oac-352854:37 Basic Metabolic Profile (BMP) Comments: [place] [address] [place], [place], [address] GAP 19 (Abnormal) Range: 5-15 CO2 11.0 [...] A.D.A. criteria.Please note revised GLUCOSE reference range hbkxpotzs84/02/2018. 51-Ttk-748560:37 CBC W/Diff, Automated Comments: [facility] Osnohdasoa7[address] [place], [place], [address] CRENATED RBC 1+ (Normal) ANISO 1+ (Normal) [...] K/mm3 (Normal) Range: 4.4-11.0 :37 Lipase Comments: [facility] Z[address] [place] [address], [id number] LIPASE 86 U/L (Normal) Range: 73-393 :37 Liver Profile Comments: [facility] Olme[address]argr[address] [place] [address], [address] D BILI 1.07 mg/dL (Abnormal) Range: 0.00-0.30 T BILI 2.40 mg/dL (Abnormal) Range: 0.20-1.00 ALT 120 U/L (Abnormal) Range: 13-56 ALK P 94 U/L (Normal) Range: 45-117 AST 149 U/L (Abnormal) Range: 15-37 Comments: Moderate Hemolysis, Result may be falsely increased. GLOB 2.9 g/dL (Normal) Range: 2.2-4.2 ALB 3.0 g/dL (Abnormal) Range: 3.2-5.0 T PROT 5.9 g/dL (Abnormal) Range: 6.4-8.2 :37 Magnesium Comments: [facility] [address] [place], [address] MG 2.0 mg/dL (Normal) Range: 1.6-2.6 Comments: Moderate Hemolysis, Result may be falsely increased. :37 Troponin-I Comments: [facility] [address] [place], [address] TROPONIN-I 0.081 ng/mL (Abnormal) Comments: TROPONIN-I EXPECTED VALUES <0.045 Negative 0.045 - 0.590 Consistent with Cardiac Damage > OR = 0.600 Critical Value Not every elevated troponin is indicative of MN. T hesevalues should be used with clinical judgement in examiningthe patient's clinical picture for diagnosis. To establisha diagnosis of MN versus myocardial injury, there must be ademonstrated rise and/ or fall in the troponin values, inaddition to ischemic symptoms, EKG changes, new regionalwall motion abnormality, and/or angiographical evidence. PLEASE NOTE: REFERENCE RANGES EDITED 02/06/1824-Feb-20181-Chw-157760:21 CMV ANTIBODY (54556) Comments: today; PATIENT NOT FASTINGPERFORMED BY: [employer] Cfmchj1061 [facility] [id number] Cytomegalovirus (CMV) Ab, IgG <0.60 U/mL (Normal) Range: 0.00-0.59 Comments: Negative <0.60 Equivocal 0.60 - 0.69 Positive >0.69 1-Hpn-556164:21 HEPATITIS PANEL (88059) Comments: today; PATIENT NOT FASTINGPERFORMED BY: [employer] [facility] GroupUNM Cancer CenterHnoikg4855 [facility] [id number] Hep C Virus Ab <0.1 {s/co_ratio} (Normal) Range: 0.0-0.9 Comments: Negative: < 0.8 Indeterminate: 0.8 - 0.9 Positive: > 0.9 . The CDC recommends that a positive HCV antibody result be followed up with a HCV Nucleic Acid Amplification test (288416). Hep B Core Ab, IgM Negative (Normal) HBsAg Screen Negative (Normal) Hep A Ab, IgM Negative (Normal) 8-Ury-066855:21 EBV Panel (07185) Comments: today; PATIENT NOT FASTINGPERFORMED BY: REINALDO [facility] Lvzrja3269 [facility] [id number] Interpretation: SPRCS (Normal) Comments: EBV Interpretation Chart [...] <36.0 Equivocal 36.0 - 43.9 Positive >43.9 47-Ypg-185275:19 CBC W/Diff, Automated Comments: Order Date: 02/23/18Order Info: 0184-1 - CBCDOrder Info: 03131-2 - [facility] Jtxtevmddp4770 [place], [address] MACROCYTE 1+ (Normal) ANISO RARE [...] 4.2-5.4 WBC 6.9 K/mm3 (Normal) Range: 4.4-11.0 52-Zdw-699460:19 Comprehensive Metabolic Profil Comments: Order Date: 02/23/18Order Info: 0786-1 - CMPOrder Info: 1798-8 - AMYOrder Info: 3040-3 - [facility] Qknkeptsuz3488 [address] [place], [place], [address] GAP 11 (Normal) Range: 5-15 CO2 25.0 [...] A.D.A. criteria.Please note revised GLUCOSE reference range ywaitunfe17/02/2018. 25-Tga-613676:19 Erythrocyte Sed Rate Comments: Order Date: 02/23/18Order Info: 0184-1 - CBCDOrder Info: 27913-0 - [facility] [address]qsa19[address] [place], [address] SED RATE 16 mm/h (Normal) Range: 0-30 90-Wgc-372193:19 Lipase (78883) Comments: Order Date: 02/23/18Order Info: 0786- 1 - CMPOrder Info: 1798-8 - AMYOrder Info: 3040-3 - [facility] Usflkuhgna299[address] [place], [address] LIPASE 92 U/L (Normal) Range: 73-393 78-Dom-007313:19 Amylase (33239) Comments: Order Date: 02/23/18Order Info: 0786- 1 - CMPOrder Info: 1798-8 - AMYOrder Info: 3040-3 - [facility] Enwofiblri5[address] [place], [address] ARIAN 27 U/L (Normal) Range: 25-115 2-Ubq-173893:15 Amylase Comments: CMP, CBCD IS FOR DR ORONA IS FOR [facility] Yaumoblzxy39[address] [place], [place], [address] ARIAN 29 U/L (Normal) Range: 25-115 7-Gyx-827248:15 CBC W/Diff, Automated Comments: CMP, CBCD IS FOR DR ORONA IS FOR [facility] Xcqwponxmu0567 [address] [place], [address] ANISO 1+ (Normal) Absolute Lymph 0.41 {X10_3/ul} [...] 4.2-5.4 WBC 5.3 K/mm3 (Normal) Range: 4.4-11.0 8-Jtl-016251:15 Comprehensive Metabolic Profil Comments: CMP, CBCD IS FOR DR ORONA IS FOR [facility] Ndtbvojzbz3250 [place], [address] GAP 9 (Normal) Range: 5-15 [...] A.D.A. criteria.Please note revised GLUCOSE reference range pecpankxv84/02/2018. 9-Ovw-728312:15 Digoxin Level Comments: CMP, CBCD IS FOR DR ORONA IS FOR [facility] Orrquawngz2306 [place], [address] DIG 0.92 ng/mL (Normal) Range: 0.80-2.00 2-Bkb-401216:15 Lipase Comments: [facility], CBCD IS FOR DR ORONA IS FOR [facility] [address] [place], [address] LIPASE 101 U/L (Normal) Range: 73-393 3-Ddh-892165:15 Lipid Profile Comments: [facility], CBCD IS FOR DR ORONA IS FOR [facility] Ngbnchuhww7966 [place], [address] VLDL 15 mg/dL (Normal) Range: [...] 200-240 mg/dL Borderline >240 mg/dL High Risk 8-Tht-749068:15 Magnesium Comments: [facility], CBCD IS FOR DR ORONA IS FOR [facility] Xqmmaiiodt2246 [place], [address] MG 1.8 mg/dL (Normal) Range: 1.6-2.6 1-Xke-474546:15 Microalb:Creat Ratio,Random UR Comments: [facility], CBCD IS FOR DR ORONA IS FOR [facility] [address] [place], [address] MALB:CREAT 34.3 {mg/g_CRE} (Abnormal) MICROALBUMIN,UR 58.6 mg/L (Normal) UR CREAT 171.00 mg/dL (Normal) 2-Fma-488034:15 Thyroid Stim Hormone (TSH) Comments: CMP, CBCD IS FOR DR ORONA IS FOR [facility] [address]kpwjvveib[address] [place], [address] TSH 1.84 {uIU/mL} (Normal) Range: 0.358-3.74 2-Sku-094958:15 Vitamin B12 383 pg/mL (Normal) Comments: CMP, CBCD IS FOR DR ORONA IS FOR [facility] Osajvocenw1459 [place], [address] Range: 211-911 8-Pcr-[id number]:15 Vitamin D,25 Hydroxy Comments: CMP, CBCD IS FOR DR ORONA IS FOR [facility] [id number] [place], [address] Vitamin D 25-OH 72.0 ng/mL (Normal) Range: 29.95-100.01 Comments: Vitamin D 25(OH) Status Range Deficiency <20 ng/mL (50nmol/L) Insuffciency 20 - 30 ng/mL (50 - 75 nmol/L) Sufficiency 30 - 100 ng/mL (75 - 250 nmol/L) Toxicity >100 ng/mL (>250 nmol/L) [id number]:14 Blood Glucose , Office (47156) Blood Glucose , Office 137 (Normal) [id number]-[id number]:14 HgA1C , Office (80123) HgA1C , Office 6.1 % (Normal) Range: 4.6 - 7.1 23-Vad-18497:35 CBC W/Diff, Automated Comments: [facility] [address] [place], [address] Absolute Lymph 1.30 {X10_3/ul} (Normal) Range: [...] 4.2-5.4 WBC 4.2 K/mm3 (Abnormal) Range: 4.4-11.0 98-Jjb-89865:33 Comprehensive Metabolic Profil Comments: Reason for Laboratory Test [facility] Ikfpjknpoa47[address] [place], [place], [address] GAP 8 (Normal) Range: 5-15 CO2 31.0 mmol/L (Normal) Range: 21.0-32.0 CL 99 mmol/L (Normal) Range: 98-107 K 3.4 mmol/L (Abnormal) Range: 3.5-5.1 NA 138 mmol/L (Normal) Range: 136-145 T BILI 0.70 mg/dL (Normal) Range: 0.20-1.00 ALT 27 U/L (Normal) Range: 13-56 Comments: Please note revised ALT reference range qsklkgejp45/28/2018. ALK P 102 U/L (Normal) Range: 45-117 [...] A.D.A. criteria.Please note revised GLUCOSE reference range eqlquucyr66/02/2018. 19-Ury-99402:33 LDH 198 U/L (Normal) Comments: Reason for Laboratory Test OVSerial Specimen #1, #2 or #3? [facility] Ifwierjjoq[address] [place], [place], [id number] Range: 84-246 21-Xva-698711:15 Culture, Urine Comments: [facility] Dbaltixavi[address] [place], [place], [address] CUUR See Note (Normal) Comments: VERBAL ORDER DR. IRVIN'S OFFICE Urine CultureORGANISM 1: Mixed Gram Positive OrganismsColony Count 11,000-25,000MIX CULTURE Mixed contaminants. Submit a new specimen if indicated. 70-Nzq-274583:11 CBC W/Diff, Automated Comments: [facility] Rhuurhdnyo[address] [place], [place], [address] Absolute Lymph 1.34 {X10_3/ul} (Normal) Range: 0.83-4.51 [...] 4.2-5.4 WBC 5.4 K/mm3 (Normal) Range: 4.4-11.0 32-Exy-758907:11 Comprehensive Metabolic Profil Comments: Comments: [facility] Tizkhkunlh8341 [place], [address] GAP 7 (Normal) Range: 5-15 CO2 28.0 mmol/L (Normal) Range: 21.0-32.0 CL 100 mmol/L (Normal) Range: 98-107 K 3.9 mmol/L (Normal) Range: 3.5-5.1 NA 135 mmol/L (Abnormal) Range: 136-145 T BILI 0.70 mg/dL (Normal) Range: 0.20-1.00 ALT 31 U/L (Normal) Range: 13-56 Comments: Please note revised ALT reference range urlimqmqu77/28/2018. ALK P 110 U/L (Normal) Range: 45-117 [...] A.D.A. criteria.Please note revised GLUCOSE reference range lirfkoted48/02/2018. 18-Uyj-091082:10 Urinalysis, Complete Comments: ORDERED UACDR.JACINDA ORDERED CMP AND CBCDComments: clean catchComments: clean catchHow was Urine Obtained? BANQUET STEWARDESS TO [facility] Xwukxjqszr24[address] [place], [place], [id number] MUCUS, URINE RARE {/hpf} (Normal) BACTERIA RARE [...] (Normal) CLARITY Cloudy (Normal) COLOR Yellow (Normal) 1-Urh-459421:42 ,Serum,hCG Quali. Comments: Comments: [facility] [address]ye[address] [place], [place], [address] HCGSQUAL NEGATIVE {Negative} (Normal) Range: 0-9 Nonpreg HCG Qual triggr 2 m[iU]/mL (Normal) 4-Mmj-331617:41 Basic Metabolic Profile (BMP) Comments: [facility] Suz[address] [place], [place], [address] GAP 10 (Normal) Range: 5-15 CO2 28.0 [...] A.D.A. criteria.Please note revised GLUCOSE reference range pynzggoph59/02/2018. 7-Bvx-252420:41 CBC-Complete Blood Cnt No Diff Comments: [facility] [address] [place], [place], [address] MPV 9.6 fL (Normal) Range: 6.2-12.0 PLT [...] 4.2-5.4 WBC 8.7 K/mm3 (Normal) Range: 4.4-11.0 8-Rau-060179:41 Prothrombin Time w/INR Comments: [facility] Gzsqtdejyq4670 [facility] [place], [place], [address] INR 1.0 (Normal) PROTIME 12.9 s (Normal) Range: 11.7-14.9 :00 Culture, Urine Comments: [facility] Izmnvdedhx6865 [facility] [place], [place], [address] CUUR See Note (Normal) Comments: Urine CultureORGANISM [...] &lt ;=20 S(NF) indicates non-formulary drug at [facility]. Approval by Infectious Disease Specialist required before non- formulary drugs may be ordered and/or dispensed. :27 AFP, Tumor Marker Comments: Is Patient ? NPatient's Weight (LBS.): 124Number of Fetuses: 0[facility] (refer to report for specific site)refer to report for address and phone number AFP TUMOR 2253 6.8 ng/mL (Normal) Range: 0.0-8.3 Comments: Khanh ECLIA methodologyPerformed at: CB - [facility] [address] [id number] Director: Omar Hood PhD, Phone: [phone] 58-Mpq-30136:27 CBC W/Diff, Automated Comments: [facility] Gnfkbjiyqd50[address] [place], [place], [address] Absolute Lymph 1.47 {X10_3/ul} (Normal) Range: 0.83-4.51 [...] Range: 4.4-11.0 :27 Comprehensive Metabolic Profil Comments: [facility] [address] [place], [place], [address] GAP 9 (Normal) Range: 5-15 CO2 28.0 [...] Range: 70-110 :27 Microalb:Creat Ratio,Random UR Comments: [facility] [address] [place], [place], [address] MALB:CREAT 17.4 {mg/g_CRE} (Normal) MICROALBUMIN,UR 37.5 mg/L (Normal) UR CREAT 215.00 mg/dL (Normal) :40 CBC W/Diff, Automated Comments: [facility] Szofdhovmt37[address] [place], [address] Absolute Lymph 1.60 {X10_3/ul} (Normal) [...] 12/06/16Order Info: [id number] - *CMP Complete Metabolic PanelWWooster [facility] Hospital Jhodymysmp4746 [address] [place], [place], [address] GAP 10 (Normal) Range: 5-15 CO2 27.0 [...] <126 mg/dLsuggests IMPAIRED HOMEOSTASIS per A.D.A. criteria. 36-Ghu-15356:15 Culture, Urine Comments: [facility] Ysumqbcmus[address] [place], [address] CUUR See Note (Normal) Comments: Urine CultureORGANISM [...] $ <=20 S(NF) indicates non-formulary drug at [facility]. Approval by Infectious Disease Specialist required before non-formulary drugs may be ordered and/or dispensed. :35 HgA1C , Office (36249) HgA1C , Office 6.5 % (Normal) Range: 4.6 - 7.1 :07 AFP, Tumor Marker Comments: Is Patient ? [facility] (refer to report for specific site)refer to report for address and phone number AFP TUMOR 2253 8.5 ng/mL (Abnormal) Range: 0.0-8.3 Comments: Ezoic ECLIA methodologyPerformed at: [facility] [place] [id number] Director: Omar Hood PhD, Phone: [phone] :07 CBC W/Diff, Automated Comments: [facility] V[address]oopjdyc73[address] [place], [address] Absolute Lymph 1.17 {X10_3/ul} (Normal) [...] Range: 4.4-11.0 31-May-20179:07 Comprehensive Metabolic Profil Comments: [facility] [address] [place], [place], [address] GAP 9 (Normal) Range: 5-15 CO2 28.0 [...] US Food and Drug Administration.Performed at: - [address] [id number] Director: Zia Jarvis MD, Phone: [phone] INS RES/DIAB RK . (Normal) LDL SIZE [...] . (Normal) :07 Vitamin D,25 Hydroxy Comments: [facility] Kbxamxtxcp5450 [facility] [place], [place], [phone] Vitamin D 25-OH 61.8 ng/mL (Normal) Comments: Vitamin D 25(OH) Status Range Deficiency <20 ng/mL (50nmol/L) Insuffciency 20 - 30 ng/mL (50 - 75 nmol/L) Sufficiency 30 - 100 ng/mL (75 - 250 nmol/L) Toxicity >100 ng/mL (>250 nmol/L) :48 Liver Profile Comments: [facility] Soyrpwfnvv4357 [facility] [place], [place], [address] D BILI 0.14 mg/dL (Normal) Range: 0.00-0.30 T BILI 0.50 mg/dL (Normal) Range: 0.20-1.00 ALT 57 U/L (Normal) Range: 12-78 ALK P 94 U/L (Normal) Range: 45-117 AST 40 U/L (Abnormal) Range: 15-37 GLOB 2.8 g/dL (Normal) Range: 2.3-3.5 ALB 3.9 g/dL (Normal) Range: 3.4-5.0 T PROT 6.7 g/dL (Normal) Range: 6.4-8.2 :45 Potassium Comments: [facility] [address] [place], [place], [address] K 4.3 mmol/L (Normal) Range: 3.5-5.1 :35 CBC W/Diff, Automated Comments: [facility] Wordlqumny[address] [place], [place], [address] Absolute Lymph 1.24 {X10_3/ul} (Normal) Range: 0.83-4.51 [...] Range: 4.4-11.0 :35 Comprehensive Metabolic Profil Comments: [facility] Kn[address]urniq[address] [place], [place], [address] GAP 10 (Normal) Range: 5-15 CO2 31.0 [...] ASPIRATION (SLIDES ONLY) See Note (Normal) Comments: [facility] [address] [place], [address] 0 Comments: Patient: IFEOMA ASHRAF : 1965 (52/F) Acct Num: [id number] Phys: Janelle KING,Alejandro Unit Num: [id number] Loc: LABSPEC Specimen: [id number] Received: 03/18/17 - 1127 Spec Ty pe: ASPIRATION TISSUES TISSUES: COMMENT Correlation with clinical, radiologic findings and appropriate follow up are necessary. CYTOLOGY GROSS Received are ten smears labeled wi th the patient's name and designated per the requisition as left thyroid FNA. Submitted for staining. / 03/18/17 TC:5 CPT: 83769 CYTOLOGY STUDY Slides are reviewed. The specimen [...] <signature on file> 01-Mar-20179:30 HEPATITIS C ANTIBODY (25110) Comments: PATIENT NOT FASTINGPERFORMED BY: [employer] Mgglje3854 [facility] [id number] Hep C Virus Ab <0.1 {s/co_ratio} (Normal) Range: 0.0-0.9 Comments: Negative: < 0.8 Indeterminate: 0.8 - 0.9 Positive: > 0.9 . The CDC recommends that a positive HCV antibody result be followed up with a HCV Nucleic Acid Amplification test (818437). :30 Potassium Serum (80417) Comments: PATIENT NOT FASTINGPERFORMED BY: [employer] Zcakxs4490 [facility]ROBAUTOSloop [facility] Hospital [id number] Potassium, Serum 4.8 mmol/L (Normal) Range: 3.5-5.2 :29 HgA1C , Office (93345) HgA1C , Office 7.9 % (Abnormal) Range: 4.6 - 7.1 :53 CBC W/Diff, Automated Comments: [facility] [address] [place], [place], [address] Absolute Lymph 1.57 {X10_3/ul} (Normal) Range: 0.83-4.51 [...] Range: 4.4-11.0 :53 Comprehensive Metabolic Profil Comments: [facility] Ouncxwqohd[address] [place], [place], [address] GAP 11 (Normal) Range: 5-15 CO2 32.0 [...] per A.D.A. criteria. :53 Lipid Profile Comments: [facility] Ujljtbakcw5[address] [place], [address] VLDL 37 mg/dL (Normal) Range: 5-40 LDL [...] High Risk :53 Microalb:Creat Ratio,Random UR Comments: [facility] [address] [place], [place], [address] MALB:CREAT 19.7 {mg/g_CRE} (Normal) MICROALBUMIN,UR 27.8 mg/L (Normal) UR CREAT 141.00 mg/dL (Normal) :53 Thyroid Stim Hormone (TSH) Comments: [facility] [address] [place], [place], [address] TSH 2.39 {uIU/mL} (Normal) Range: 0.358-3.74 :53 Vitamin D,25 Hydroxy Comments: [facility] [address] [place], [place], [address] Vitamin D 25-OH 79.9 ng/mL (Normal) Comments: Vitamin D 25(OH) Status Range Deficiency <20 ng/mL (50nmol/L) Insuffciency 20 - 30 ng/mL (50 - 75 nmol/L) Sufficiency 30 - 100 ng/mL (75 - 250 nmol/L) Toxicity >100 ng/mL (>250 nmol/L) 10-Gyr-149148:08 CBC W/Diff, Automated Comments: [facility] [address] [place], [place], [address] Absolute Lymph 2.04 {X10_3/ul} (Normal) Range: 0.83-4.51 [...] 4.2-5.4 WBC 9.0 K/mm3 (Normal) Range: 4.4-11.0 64-Lry-878017:08 Comprehensive Metabolic Profil Comments: [facility] Ryikourzps25[address] [place], [place], [address] GAP 9 (Normal) Range: 5-15 CO2 27.0 [...] 126 mg/dLsuggests DIABETES MELLITUS per A.D.A. criteria. 88-Tkj-923734:00 Culture, Urine Comments: [facility] V[address]reemws[address] [place], [place], [address] CUUR See Note (Normal) Comments: Urine CultureORGANISM 1: Mixed Gram Positive OrganismsColony Count >100,000MIX CULTURE Mixed contaminants. Submit a new specimen if indicated. 6-Nav-434213:25 CBC W/Diff, Auto - EPLAB Comments: At [facility] Outpatient [facility] Medical Oncologypatients receive CBC w/auto Differential ONLY. Physicianwill place an order for a manual differential or Pathologistreview at his discretion. [facility] OUTPATIENT [facility]. [address] [place] [address] [address] VISOR INSTALLER: MATEO CASTANEDA DO PH:[phone] Medical Trihealth Rehabilitation Hospital [address]qjtgds[address] [place], [place], [address] Absolute Lymph 1.42 {X10_3/uL} (Normal) Range: 0.83-4.51 [...] 4.2-5.4 WBC 6.3 K/mm3 (Normal) Range: 4.4-11.0 3-Lgq-681893:25 Comprehensive Metabolic Profil Comments: Order Date: 06/07/16Order Date: 06/07/16erial Specimen #1, #2 or #3? 1[facility] Lpwasqakzd37[address] [place], [place], [address] GAP 11 (Normal) Range: 5-15 CO2 24.0 [...] 200 mg/dLsuggests DIABETES MELLITUS per A.D.A. criteria. 2-Ebd-258994:25 LDH 208 U/L (Normal) Comments: Order Date: 06/07/16Order Date: 16Serial Specimen #1, #2 or #3? [address] [place] [address] Ll[address] [place], [address] Range: 84-246 2-Jzo-506091:25 Uric Acid Comments: Order Date: 06/07/16Order Date: 16Serial Specimen #1, #2 or #3? [address] [place] [address] Ioenvmykvt84[address] [place], [address] URIC 3.8 mg/dL (Normal) Range: 2.6-6.0 Comments: The drugs N-Acetylcysteine and Metamizole may falsely deressthis assay. :10 HgA1C , Office (57229) HgA1C , Office 8.0 % (Abnormal) Range: 4.6 - 7.1 :10 Blood Glucose , Office (26743) Blood Glucose , Office 223 (Normal) :24 AFP, Tumor Marker Comments: Is Patient ? [facility] (refer to report for specific site)refer to report for address and phone number AFP TUMOR 2253 8.5 ng/mL (Abnormal) Range: 0.0-8.3 Comments: Khanh ECLIA methodologyPerformed at: - [facility] [address] [id number] Director: Omar Hood PhD, Phone: [phone] :[phone] CBC W/Diff, Automated Comments: [facility] Ofgfdwqbxh87[address] [place], [place], [address] Absolute Lymph 1.35 {X10_3/ul} (Normal) Range: 0.83-4.51 [...] 4.2-5.4 WBC 4.1 K/mm3 (Abnormal) Range: 4.4-11.0 90-Rak-52201:24 Comprehensive Metabolic Profil Comments: [facility] L[address]hxdl[address] [place], [place], [address] GAP 9 (Normal) Range: 5-15 CO2 27.0 [...] 126 mg/dLsuggests DIABETES MELLITUS per A.D.A. criteria. 80-Oen-58943:24 NMR Lipoprofile Comments: [facility] (refer to report [...] the US Food and Drug Administration.Performed at: [address] [id number] Director: Zia Jarvis MD, Phone: [phone] INS RES/DIAB RK . (Normal) LDL SIZE [...] mg/dL (Normal) Range: 100-199 LIPIDS . (Normal) 58-Wgx-797813:53 CBC W/Diff, Automated Comments: [facility] [address]mozqi[address] [place], [address] Absolute Lymph 1.41 {X10_3/ul} (Normal) [...] Range: 4.4-11.0 :53 Comprehensive Metabolic Profil Comments: [facility] C[address]uycpuye[address] [place], [place], [address] GAP 13 (Normal) Range: 5-15 CO2 24.0 [...] 200 mg/dLsuggests DIABETES MELLITUS per A.D.A. criteria. 29-Xfk-59818:42 CBC W/Diff, Automated Comments: [facility] [address]udmnt[address] [place], [place], [address] Absolute Lymph 1.92 {X10_3/ul} (Normal) Range: 0.83-4.51 [...] 4.2-5.4 WBC 6.2 K/mm3 (Normal) Range: 4.4-11.0 45-Tbp-76671:42 Comprehensive Metabolic Profil Comments: [facility] Z[address]ejmbwcl24[address] [place], [place], [address] GAP 11 (Normal) Range: 5-15 CO2 25.0 [...] :55 Magnesium Comments: Order Date: 06/07/16Order Date: 06/07/16[facility] [address]us[address] [place], [place], [address](397) MG 2.0 mg/dL (Normal) Range: 1.8-2.4 :57 CBC W/Diff, Auto - EPLAB Comments: At [facility] Outpatient [facility] Medical Oncologypatients receive CBC w/auto Differential ONLY. Physicianwill place an order for a manual differential or Pathologistreview at his discretion. [facility] OUTPATIENT [facility]. [address] [place] [address] [place] [address] VISOR INSTALLER: MATEO CASTANEDA DO PH:[phone] Medical Trihealth Rehabilitation Hospital [address]vjppv48[address] [place], [place], [phone] Absolute Lymph 1.38 {X10_3/uL} (Normal) Range: 0.83-4.51 [...] Profil Comments: Order Date: 06/07/16OV Order #: [id number] Specimen #1, #2 or #3? 1 [id number] [facility] Hospital Dsswelgncy8390 [place], [address] GAP 13 (Normal) Range: 5-15 CO2 24.0 [...] (Normal) Comments: Order Date: 06/07/16 Order #: [id number] Specimen #1, #2 or #3? [id number] [place] [address] [place], [address] Range: 84-246 :56 Magnesium Comments: Order Date: 06/07/16 Order #: [id number] Specimen #1, #2 or #3? [id number] [place] [address] [place], [address] MG 1.5 mg/dL (Abnormal) Range: 1.8-2.4 :56 Uric Acid Comments: Order Date: 06/07/16 Order #: [id number] Specimen #1, #2 or #3? [address] [place] [address] [place], [address] URIC 4.8 mg/dL (Normal) Range: 2.6-6.0 Comments: The drugs N-Acetylcysteine and Metamizole may falsely deressthis assay. :30 Liver Profile Comments: [facility] [address] [place], [address] D BILI 0.13 mg/dL (Normal) Range: 0.00-0.30 T BILI 0.40 mg/dL (Normal) Range: 0.20-1.00 ALT 60 U/L (Normal) Range: 12-78 ALK P 126 U/L (Normal) Range: 50-136 AST 37 U/L (Normal) Range: 15-37 GLOB 2.7 g/dL (Normal) Range: 2.3-3.5 ALB 3.4 g/dL (Normal) Range: 3.4-5.0 T PROT 6.1 g/dL (Abnormal) Range: 6.4-8.2 :33 CBC W/AUTO DIFF WBC Comments: PATIENT NOT FASTINGPERFORMED BY: REINALDO CallVUCarrier ClinicCemsge2754 [facility] [id number] Information: NURSE DRAW (12755) Immature Grans (Abs) 0.0 {x10E3/uL} (Normal) Range: [...] PANEL, COMPREHENSIVE Comments: PATIENT NOT FASTINGPERFORMED BY: CallVUCarrier ClinicQimzmz3184 [facility] [id number] (05680) ALT (SGPT) 41 [iU]/L (Abnormal) Range: 0-32 [...] (Abnormal) Range: 65-99 :09 HgA1C , Office (15214) HgA1C , Office 7.0 % (Normal) Range: 4.6 - 7.1 :14 AFP, Tumor Marker Comments: Is Patient ? [facility] (refer to report for specific site)refer to report for address and phone number AFP TUMOR 2253 7.7 ng/mL (Normal) Range: 0.0-8.3 Comments: Khanh ECLIA methodologyPerformed at: CB - [facility] [address] [id number] Director: Omar Hood PhD, Phone: [phone] :[phone] CBC W/Diff, Automated Comments: [facility] [address] [place], [address] ; will review on 05/17 [...] Range: 4.4-11.0 :14 Comprehensive Metabolic Profil Comments: [facility] Zlbfawwgtb[address] [place], [place], [address] GAP 7 (Normal) Range: 5-15 CO2 28.0 [...] 126 mg/dLsuggests DIABETES MELLITUS per A.D.A. criteria. 28-Sqv-83639:14 Lipid Profile Comments: [facility] [address] [place], [address] VLDL 36 mg/dL (Normal) Range: 5-40 LDL [...] High Risk :14 Microalb:Creat Ratio,Random UR Comments: [facility] [address]osmae[address] [place], [address] ; will review on 05/17 MALB:CREAT 14.6 {mg/g_CRE} (Normal) MICROALBUMIN,UR 23.4 mg/L (Normal) UR CREAT 160.00 mg/dL (Normal) :14 Thyroid Stim Hormone (TSH) Comments: [facility] [address]wag[address] [place], [address] TSH 1.89 {uIU/mL} (Normal) Range: 0.358-3.74 :14 Vitamin D,25 Hydroxy Comments: [facility] [address] [place], [phone] ; will review on 05/17 Vitamin D 25-OH 53.2 ng/mL (Normal) Comments: Vitamin D 25(OH) Status Range Deficiency <20 ng/mL (50nmol/L) Insuffciency 20 - 30 ng/mL (50 - 75 nmol/L) Sufficiency 30 - 100 ng/mL (75 - 250 nmol/L) Toxicity >100 ng/mL (>250 nmol/L) :23 CBC W/Diff, Automated Comments: [facility] Vrskrxmjcf9372 [facility] [place], [address] Absolute Lymph 1.65 {X10_3/ul} (Normal) Range: [...] 4.2-5.4 WBC 4.4 K/mm3 (Normal) Range: 4.4-11.0 05-Wej-69276:23 Comprehensive Metabolic Profil Comments: [facility] N[address]zoohpjmx7[address] [place], [place], [address] GAP 9 (Normal) Range: 5-15 CO2 30.0 [...] per A.D.A. criteria. :07 HgA1C , Office (01250) HgA1C , Office 8.5 % (Abnormal) Range: 4.6 - 7.1 :15 CBC W/Diff, Automated Comments: [facility] [address] [place], [address] Absolute Lymph 1.76 {X10_3/ul} (Normal) Range: 0.83-4.51 [...] 4.2-5.4 WBC 6.7 K/mm3 (Normal) Range: 4.4-11.0 94-Rhf-43264:15 Comprehensive Metabolic Profil Comments: [facility] [address]dt[address]wxnuy[address] [place], [place], [address] GAP 13 (Normal) Range: 5-15 CO2 23.0 [...] per A.D.A. criteria. :15 Lipid Profile Comments: [facility] Vnreofqfdc[address] [place], [place], [address] VLDL 45 mg/dL (Abnormal) Range: 5-40 LDL [...] High Risk :15 Vitamin D,25 Hydroxy Comments: [facility] Cuatydqxmu9855 [facility] [address] [place], [place], [address] Vitamin D 25-OH 28.8 ng/mL (Normal) Comments: Vitamin D 25(OH) Status Range Deficiency <20 ng/mL (50nmol/L) Insuffciency 20 - 30 ng/mL (50 - 75 nmol/L) Sufficiency 30 - 100 ng/mL (75 - 250 nmol/L) Toxicity >100 ng/mL (>250 nmol/L); ADDENDA: non-emergent till apt :35 CBC W/Diff, Automated Comments: [facility] Amtvgkofmm0214 [facility] [address]. [place], [place], [address] Absolute Lymph 1.26 {X10_3/ul} (Normal) Range: 0.83-4.51 [...] 4.2-5.4 WBC 4.8 K/mm3 (Normal) Range: 4.4-11.0 43-Ddz-23021:35 Comprehensive Metabolic Profil Comments: [facility] Tuwzfpmjue8466 [address] [place], [place], [address] GAP 14 (Normal) Range: 5-15 CO2 26.0 [...] 200 mg/dLsuggests DIABETES MELLITUS per A.D.A. criteria. 62-Zmy-32861:0 ASPIRATION (SLIDES ONLY) See Note (Normal) Comments: [facility] Nngqudgtyg6336 [facility] [place], [place], [address] 0 Comments: Patient: IFEOMA ASHRAF : 1965 (50/F) Acct Num: [id number] Phys: Janelle KING,Alejandro Unit Num: [id number] Loc: LABSPEC Specimen: [id number] Received: 01/06/16 - 1129 Spec Ty pe: ASPIRATION TISSUES TISSUES: COMMENT Correlation with clinical, radiologic findings and appropriate follow up are necessary. CYTOLOGY GROSS Received are 10 smears labeled wit h the patient's name and designated per the requisition as fine needle aspiration left thyroid. Submitted for staining. 01/06/16 TC:5 CPT:28118 CYTOLOGY STUDY Slides are reviewed. The spe [...] Signed Toni Yepez 01/07/16 <signature on file> 3-Ikv-963206:29 CBC W/Diff, Auto - EPLAB Comments: At [facility] Medical Oncologypatients receive CBC w/auto Differential ONLY. Physicianwill place an order for a manual differential or Pathologistreview at his discretion. [facility] OUTPATIENT [facility]. [address] [place] [address] [place] [address] VISOR INSTALLER: MATEO CASTANEDA DO PH:[phone] Medical Trihealth Rehabilitation Hospital [address]cjy[address] [place], [address] Absolute Lymph 1.49 {X10_3/uL} (Normal) [...] Comments: Serial Specimen #1, #2 or #3? 1[facility] [address]fh[address] [place], [address] GAP 8 (Normal) Range: 5-15 CO2 26.0 [...] 126 mg/dLsuggests DIABETES MELLITUS per A.D.A. criteria. 5-Gsh-938202:28 LDH 213 U/L (Normal) Comments: Serial Specimen #1, #2 or #3? [address] [place] [address] H[address]ta[address] [place], [place], [id number] Range: 84-246 0-Bif-055913:28 Magnesium Comments: Serial Specimen #1, #2 or #3? [address] [place] [address] Kbvltyrslv3282 [address]. [place], [place], [id number] MG 1.6 mg/dL (Abnormal) Range: 1.8-2.4 7-Bwz-631360:28 Uric Acid Comments: Serial Specimen #1, #2 or #3? 1[facility] Srgwbbobnp2009 V[place]AS [place], [id number] URIC 4.8 mg/dL (Normal) Range: 2.6-6.0 :36 Miscellaneous Lab Procedure Comments: Comments: [id number] URINE TOX,RUN LOWEST TESTTest(s) Ordered: [id number] URINE TOX,[facility] L[facility]EST [facility] Atwxwtxsjo7746 [place], [address] [facility] [place] Comments: [id number] 6+OXYCODONE-BUND (ng/mL)DRUG RESULT SCREEN CUTOFF____ Amphetamines,Urine Negat LAB (Normal) scott ng/mL 1000Amphetamine test includes Amphetamine and Methamphetamine.Barbiturates Negative ng/mL 200Benzodiazepines Negative ng/mL 200Cannabinoid TEST Negative ng/mL 20Cocaine (Metab) Negative ng/mL 300Opiates Positive ng/mL 300 Opiates test includes Codeine, Morphine, Hydromorphone, [place] codone.Please Note:Confirmation performed by Mass SpectrometryCodeine NegativeMorphine NegativeHydromorphone NegativeHydrocodone Positive Hydrocodone Confirm 1950 ng/mL 300Oxycodone/Oxymorphone,Urine Negative ng/mL 300 Test includes Oxydodone and Oxymorphone. TESTI NG PERFORMED AT [facility]. ORIGINAL REPORT ON FILE IN LAB CONTAINS ADDITIONAL TEST SITE INFORMATION. :36 Urine Drug Screen (VISTA) Comments: Comments: [id number] URINE TOX,RUN LOWEST TESTList of Drugs Taken or Suspected? [facility] Jcxgybffms0197 [address] [place], [place], [address] ; ordered by Basali THC NEGATIVE (Normal) [...] MUST BE ORDERED SEPARATELY. USE TESTMNEMONIC: UTCA 12-Xfu-450321:20 HgA1C , Office (63194) HgA1C , Office 7.3 % (Abnormal) Range: 4.6 - 7.1 :13 AFP, Tumor Marker Comments: Is [facility] ? [facility] (refer to report for specific site)refer to report for address and phone number AFP TUMOR 2253 6.4 ng/mL (Normal) Range: 0.0-8.3 Comments: Ezoic ECLIA methodologyPerformed at: CB - [facility] [address] [id number] Director: Omar Hood PhD, Phone: [phone] :[phone] CBC W/Diff, Automated Comments: [facility] Dwvnppcibo0203 [place], [address] Absolute Lymph 1.59 {X10_3/ul} (Normal) [...] 4.2-5.4 WBC 5.3 K/mm3 (Normal) Range: 4.4-11.0 44-Eud-97948:13 Comprehensive Metabolic Profil Comments: [facility] Ihvxxiuzmc3424 [place], [place], [address] GAP 10 (Normal) Range: 5-15 CO2 24.0 [...] per A.D.A. criteria. :13 Lipid Profile Comments: [facility] Xxrxvwvlmg0699 [facility] [place], [address] ; non-emergent and pt has [...] High Risk :13 Microalb:Creat Ratio,Random UR Comments: [facility] [address] [place], [address] MALB:CREAT 17.0 {mg/g_CRE} (Normal) MICROALBUMIN,UR 43.7 mg/L (Normal) UR CREAT 257.00 mg/dL (Normal) :13 Thyroid Stim Hormone (TSH) Comments: [facility] Mtmxxgueyy3528 [address] [place], [id number] TSH 1.82 {uIU/mL} (Normal) Range: 0.358-3.74 :13 Vitamin D,25 Hydroxy Comments: [facility] Thwxtlendo7[address] [place], [address] ; will review at 11/10 appt Vitamin D 25-OH 39.8 ng/mL (Normal) Comments: Vitamin D 25(OH) Status Range Deficiency <20 ng/mL (50nmol/L) Insuffciency 20 - 30 ng/mL (50 - 75 nmol/L) Sufficiency 30 - 100 ng/mL (75 - 250 nmol/L) Toxicity >100 ng/mL (>250 nmol/L) :40 CBC W/Diff, Automated Comments: [facility] Xxskvvywen0087 [place], [address] Absolute Lymph [...] 4.2-5.4 WBC 4.7 K/mm3 (Normal) Range: 4.4-11.0 65-Lkb-96913:40 Comprehensive Metabolic Profil Comments: [facility] Ukfeazawyq3112 [address] [place], [place], [address] GAP 13 (Normal) Range: 5-15 CO2 24.0 [...] per A.D.A. criteria. :49 HgA1C , Office (50391) HgA1C , Office 7.8 % (Abnormal) Range: 4.6 - 7.1 :09 CBC W/Diff, Automated Comments: [facility] Pygfujtjbu3966 [place], [address] Absolute Lymph 1.07 {X10_3/ul} (Normal) Range: 0.83-4.51 [...] 4.2-5.4 WBC 5.3 K/mm3 (Normal) Range: 4.4-11.0 29-Avg-612319:09 Comprehensive Metabolic Profil Comments: [facility] Ydoiunqttn2685 [address] [place], [place], [address] GAP 7 (Normal) Range: 5-15 CO2 28.0 [...] 200 mg/dLsuggests DIABETES MELLITUS per A.D.A. criteria. 4-Qmc-560148:42 CBC W/Diff, Automated Comments: At [facility] Outpatient [facility] Medical Oncologypatients receive CBC w/auto Differential ONLY. Physicianwill place an order for a manual differential or Pathologistreview at his discretion. [facility] OUTPATIENT [facility]. [address] [place] [address] [address] VISOR INSTALLER: MATEO CASTANEDA DO PH:[phone] performed at:[facility] [address] [place] [address] Absolute Lymph 1.60 {X10_3/ul} (Normal) [...] 4.2-5.4 WBC 7.0 K/mm3 (Normal) Range: 4.4-11.0 9-Tak-625939:42 Comprehensive Metabolic Profil Comments: Serial Specimen #1, #2 or #3? 1Test performed at:[facility] [address] [place] [address] GAP 9 (Normal) Range: 5-15 [...] Comments: Please note revised CREATININE reference range myrcwytgv51/22/2015. BUN 20 mg/dL (Abnormal) Range: 7-18 GLU 118 mg/dL (Abnormal) Range: 70-110 Comments: Fasting Glucose result from 110 to <126 mg/dLsuggests IMPAIRED HOMEOSTASIS per A.D.A. criteria. 6-Qem-398463:42 LDH 133 U/L (Normal) Comments: Serial Specimen #1, #2 or #3? 1Test performed at:[facility] [address] [place] [address] Range: 84-246 4-Wrk-778718:42 Uric Acid Comments: Serial Specimen #1, #2 or #3? 1Test performed at:[facility] [address] [place] [address] URIC 4.6 mg/dL (Normal) Range: 2.6-6.0 0-Rau-747711:02 CBC W/Diff, Automated Comments: Test performed at:[facility] [address] [place] [id number] ; handled by vicki Absolute Lymph 1.23 [...] 4.2-5.4 WBC 4.1 K/mm3 (Abnormal) Range: 4.4-11.0 2-Wfi-528408:02 Comprehensive Metabolic Profil Comments: Test performed at:[facility] Zpydqdexly7942 [place] [place], [place] [address] GAP 12 (Normal) Range: 5-15 CO2 23.0 [...] Comments: Please note revised CREATININE reference range eztqlgnim79/22/2015. BUN 11 mg/dL (Normal) Range: 7-18 GLU 214 mg/dL (Abnormal) Range: 70-110 Comments: Glucose result greater than or equal to 200 mg/dLsuggests DIABETES MELLITUS per A.D.A. criteria. 38-Smg-214120:49 VITAMIN B-12 (CYANOCOBALAMIN) Comments: PATIENT NOT FASTINGPERFORMED BY: LabCoCarrier ClinicEorsby2647 [facility] [id number] (78082) Vitamin B12 464 pg/mL (Normal) Range: 211-946 66-Qhd-980403:49 Vitamin D Hydroxy (07475) Comments: PATIENT NOT FASTINGPERFORMED BY: [facility]Co[facility] ClinicYblogp9478 [facility] [id number] Vitamin D, 25-Hydroxy 11.5 ng/mL (Abnormal) Range: 30.0-100.0 Comments: Vitamin D deficiency has been defined by the [place] ofMedicine and an Endocrine Society practice guideline as alevel of serum 25-OH vitamin D less than 20 ng/mL (1,2).The Endocrine Society went on to further define vitamin Dinsufficiency as a level between 21 and 29 ng/mL (2).1. IOM ([employer] of Medicine). 2010. Dietary reference intakes for calcium and D. [place]: The National Academies Press.2. Sami MF, Sophie NC, Xiomara LARES, et al. Evaluation, treatment, and prevention of vitamin D deficiency: an Endocrine Society clinical practice guideline. JCEM. 2010; 96(7):1911-30. :49 CBC W/AUTO DIFF WBC Comments: PATIENT NOT FASTINGPERFORMED BY: [facility] Lrlhpl2428 [facility] [id number] Information: [id number] (16400) Immature Grans (Abs) 0.0 {x10E3/uL} (Normal) Range: [...] 3.77-5.28 WBC 6.1 {x10E3/uL} (Normal) Range: 3.4-10.8 77-Rkk-594570:28 URINE GENESIS CULTURE-NITA COL Comments: PATIENT NOT FASTINGPERFORMED BY: [facility] Txccjl4620 [facility] [id number] Information: SRC:[facility] [id number] COUNT (66532) Antimicrobial MIHEAD (Normal) Comments: S = Susceptible; [...] Imipenem Meropenem Urine Final report (Abnormal) Culture,Comprehensive 29-Yci-546889:24 Urinalysis, Office (59365) UA - LEUKOCYTE ESTERASE Trace (Normal) UA - NITRITE Negative (Normal) URINE UROBILINGN NITA TIMED Normal mg/dL (Normal) UA - PROTEIN 30 mg/dL (Normal) UA - PH 6 (Abnormal) UA - BLOOD Negative (Normal) UA - SPECIFIC GRAVITY 1.030 (Abnormal) UA - KETONES Moderate mg/dL (Normal) UA - BILIRUBIN Small (Normal) UA - GLUCOSE Negative (Normal) 01-Apr-20157:54 Bedside Glucose Comments: Test performed at:[facility] [address] [place] [address] BEDSIDE GLU 129 mg/dL (Abnormal) Range: 70-110 Comments: MANAGEMENT OF PATIENT CARE PER NURSING PROTOCOL 31-Mar-20159:47 Urinalysis, Office (31209) UA - LEUKOCYTE ESTERASE Trace (Normal) UA - NITRITE Negative (Normal) URINE UROBILINGN NITA TIMED 2 mg/dL (Normal) UA - PROTEIN 300 mg/dL (Normal) UA - PH 6.0 (Normal) UA - BLOOD Hemolyzed Large (Normal) UA - SPECIFIC GRAVITY 1.030 (Abnormal) UA - KETONES 15 mg/dL (Abnormal) UA - BILIRUBIN Moderate (Normal) UA - GLUCOSE Negative (Normal) 86-Ran-885381:57 Basic Metabolic Profile (BMP) Comments: Test performed at:[facility] [address] [place] [address] GAP 11 (Normal) Range: 5-15 CO2 27.0 [...] 126 mg/dLsuggests DIABETES MELLITUS per A.D.A. criteria. 76-Slp-031407:57 Digoxin Level Comments: Test performed at:[facility] Ebor[address] [place] [address] DIG 1.17 ng/mL (Normal) Range: 0.80-2.00 66-Dld-118445:57 Hemoglobin A1c Comments: Test performed at:[facility] Ex[address]fr[address] [place] [address] HGB A1C 7.0 % (Abnormal) Range: 4.2-6.3 52-Pea-530906:57 Thyroid Stim Hormone (TSH) Comments: Test performed at:[facility] [address] [place] [address], [place] [address] TSH 0.89 {uIU/mL} (Normal) Range: 0.358-3.74 :17 Urine Culture,Comprehensive Comments: PATIENT NOT FASTINGPERFORMED BY: REINALDO [facility] Zsdhsp2024 Mohinder Pan [place] [id number] Information: SRC:[facility] [id number] Result 1 BETAGB (Abnormal) Comments: Beta hemolytic [...] 02/28/15How was Urine Obtained? CLEAN CATCHTest performed at:[facility] Kdlkitpzxq0681 [facility] [place] [address] AMORPHOUS 1+ URATE (Normal) MUCUS, [...] :55 CBC W/Diff, Automated Comments: Test performed at:[facility] Ixfctiinmt7967 [facility] [place] [address] Absolute Lymph 1.29 {X10_3/ul} (Normal) [...] :55 Comprehensive Metabolic Profil Comments: Test performed at:[facility] Jnpuzjyxov[address] [place] [address] GAP 10 (Normal) Range: 5-15 [...] A.D.A. criteria. :55 Lipase Comments: Test performed at:[facility] [address] [place] [address] LIPASE 142 U/L (Normal) Range: 70-290 0-Rdm-347516:40 HgA1C , Office (59354) HgA1C , Office 7.4 % (Abnormal) Range: 4.6 - 7.1 :03 CBC W/Diff, Automated Comments: Test performed at:[facility] Rjyqwibtax1574 [place] [address] Absolute Lymph 1.31 {X10_3/ul} (Normal) Range: 0.83-4.51 [...] 4.2-5.4 WBC 5.1 K/mm3 (Normal) Range: 4.4-11.0 20-Wzz-707160:03 Comprehensive Metabolic Profil Comments: Test performed at:[facility] Bdqrbdjruu8853 [address] [place], [place] [address] GAP 11 (Normal) Range: 5-15 CO2 26.0 [...] 126 mg/dLsuggests DIABETES MELLITUS per A.D.A. criteria. 27-Vsw-831189:00 Culture, Urine Comments: Test performed at:[facility] Qljhvxckxj9[address] [place], [place] [address] CUUR See Note (Normal) Comments: Urine CultureORGANISM 1: Streptococcus agalactiae (B)[place] Count 1000-10,000 Streptococcus agalactiae (B): REACTION Ampicillin $ <=0.25 S Benzylpenicillin NF <=0.06 S Ceftriaxone (other dx) $ <=0.12 S Inducable Clindamycin Resistan - Linezolid $$$$ <=2 S Vancomycin $ 0.5 S(NF) indicates non-formulary drug at [facility]. Approval by Infectious Disease Specialist required before non-formulary drugs may be ordered and/or dispensed. * CLSI guidelines does not recommend testing of cephalosporins. This interpretation is deduced from Beta-lactam/penicillin results.; ADDENDA: handled by edvin :32 CBC W/Diff, Auto - EPLAB Only Comments: At [facility] Outpatient [facility] patientsreceive CBC w/auto Differential ONLY. Physician will placean order for a manual differential or Pathologist review athis discretion. [facility] OUTPATIENT [facility]. [address] [place] [address] [place] [address] VISOR INSTALLER: MATEO CASTANEDA DO PH:[phone] performed at:[facility] Daoygbfcou[address] [place], [place] [address] ; Richie Absolute Neut 2.7 {X10_3/uL} (Normal) [...] Specimen #1, #2 or #3? 1Test performed at:[facility] Xibvlqafse[address] [place], [place] [address] Range: 87-241 Comments: ADDENDA: richie :34 TSH (78563) Comments: PATIENT WAS FASTINGPERFORMED BY: [facility] Mglwhn9241 [facility] [id number] TSH 1.240 {uIU/mL} (Normal) Range: 0.450-4.500 :34 LIPID PANEL (32977) Comments: PATIENT WAS FASTINGPERFORMED BY: [facility] Udrjpt1734 [facility] [id number] LDL/HDL Ratio 2.6 {ratio_units} (Normal) Range: 0.0-3.2 [...] CREATININE RATIO Comments: PATIENT WAS FASTINGPERFORMED BY: CallVUCarrier ClinicElfiqy6680 [facility] [id number]; non- emergent till apt tomorrow (06123) AND (94302) Microalb/Creat Ratio 14.8 {mg/g_creat} (Normal) Range: 0.0-30.0 Microalbumin, Urine 44.5 ug/mL (Abnormal) Range: 0.0-17.0 Creatinine, Urine 301.0 mg/dL (Abnormal) Range: 15.0-278.0 :34 METABOLIC PANEL, Comments: PATIENT WAS FASTINGPERFORMED BY: CallVUCarrier ClinicLsdxwu7662 [facility] [id number] Information: [id number] COMPREHENSIVE (66322) ALT (SGPT) 21 [iU]/L (Normal) Range: 0-32 [...] Glucose, Serum 161 mg/dL (Abnormal) Range: 65-99 4-Vmj-352607:10 HgA1C , Office (91690) HgA1C , Office 7.2 % (Abnormal) Range: 4.6 - 7.1 67-Oww-802504:47 CBC W/Diff, Automated Comments: Test performed at:[facility] Boovwsjmhq4[address] [place], [place] [address] ; Handled by Vicki Absolute Lymph 1.43 [...] 4.2-5.4 WBC 5.4 K/mm3 (Normal) Range: 4.4-11.0 94-Szw-675565:47 Comprehensive Metabolic Profil Comments: Test performed at:[facility] Ryvsjgtvfj[address] [place], [place] [address] GAP 6 (Normal) Range: 5-15 CO2 30.0 [...] Microscopic Examination Comments: PATIENT NOT FASTINGPERFORMED BY: [facility]6370 [facility] [id number] Bacteria Few (Normal) Mucus Threads Present (Normal) Epithelial Cells (non renal) 0-10 {/hpf} (Normal) Range: 0 - 10 RBC 0-2 {/hpf} (Normal) Range: 0 - 2 WBC >30 {/hpf} (Abnormal) Range: 0 - 5 :01 Urinalysis, Routine Comments: PATIENT NOT FASTINGPERFORMED BY: [facility]6370 [facility] [id number] Microscopic Examination See below: (Normal) Comments: Microscopic was indicated and was performed. Nitrite, Urine Negative (Normal) Urobilinogen,Semi-Qn 0.2 mg/dL (Normal) Range: 0.0-1.9 Bilirubin Negative (Normal) Occult Blood Negative (Normal) Ketones Trace (Abnormal) Glucose Negative (Normal) Protein 1+ (Abnormal) WBC Esterase 3+ (Abnormal) Appearance Turbid (Abnormal) Urine-Color Yellow (Normal) pH 6.0 (Normal) Range: 5.0-7.5 Specific [place] 1.030 (Normal) Range: 1.005-1.030 21-Xcb-767047:18 CBCD ALC 1.30 {X10_3/ul} (Normal) Range: 0.83-4.51 [...] 4.2-5.4 WBC 4.5 K/mm3 (Normal) Range: 4.4-11.0 47-Iog-478460:18 CMP GAP 7 (Normal) Range: 5-15 CO2 [...] mg/dLsuggests DIABETES MELLITUS per A.D.A. criteria. :01 BTKQC-VXDPOZRJNFY-OUICI (43809) Comments: PATIENT NOT FASTINGPERFORMED BY: [facility]6370 [facility] [id number] AFP, Serum, Tumor Marker 7.1 ng/mL (Normal) Range: 0.0-8.3 Comments: Khanh ECLIA methodology :01 PTT (Activated Partial Comments: PATIENT NOT FASTINGPERFORMED BY: [place] 2230770 [facility] [id number] Thromboplastin Time) (82506) aPTT 25 {sec} (Normal) Range: 24-33 Comments: This test has not been validated for monitoring unfractionated heparintherapy. aPTT-based therapeutic ranges for unfractionated heparintherapy have not been established. For general guidelines onHeparin monitoring, refer to the [facility] Directory of Services. :01 PT (Prothrobim Time) (52669) Comments: PATIENT NOT FASTINGPERFORMED BY: [facility]6370 [facility] [id number] Prothrombin Time 10.4 {sec} (Normal) Range: 9.1-12.0 INR 1.0 (Normal) Range: 0.8-1.2 Comments: Reference interval is for non-anticoagulated patients. . Suggested INR therapeutic range for Vitamin K anta gonist therapy: Standard Dose (moderate intensity therapeutic range): 2.0 - 3.0 Higher intensity therapeutic range 2.5 - 3.5 :01 TSH (69958) Comments: PATIENT NOT FASTINGPERFORMED BY: [place] 2230770 [facility] [id number] TSH 1.450 {uIU/mL} (Normal) Range: 0.450-4.500 :01 CBC W/AUTO DIFF WBC Comments: PATIENT NOT FASTINGPERFORMED BY: [place] 2230770 [facility] [id number] Information: [id number] (34637) Immature Grans (Abs) 0.0 {x10E3/uL} (Normal) Range: [...] CREATININE RATIO Comments: PATIENT NOT FASTINGPERFORMED BY: LabCoCarrier ClinicIlvvld8262 [facility] [id number] (59290) AND (29895) Microalb/Creat Ratio 26.4 {mg/g_creat} (Normal) Range: 0.0-30.0 Microalbumin, Urine 96.0 ug/mL (Abnormal) Range: 0.0-17.0 Creatinine, Urine 364.2 mg/dL (Abnormal) Range: 15.0-278.0 5-Luis Angel-58936:01 METABOLIC PANEL, COMPREHENSIVE Comments: PATIENT NOT FASTINGPERFORMED BY: REINALDO [facility] Kizumc3435 [facility] [id number] (19024) ALT (SGPT) 19 [iU]/L (Normal) Range: 0-32 [...] mg/dL (Abnormal) Range: 65-99 :01 LIPID PANEL (04613) Comments: PATIENT NOT FASTINGPERFORMED BY: [facility] Gpgpec3480 [facility] [id number] LDL/HDL Ratio 2.1 {ratio_units} (Normal) Range: 0.0-3.2 [...] (Normal) Range: 100-199 :19 HgA1C , Office (48445) HgA1C , Office 6.3 % (Normal) Range: [...] 7-18 GLU 102 mg/dL (Normal) Range: 70-110 21-Sqz-45991:59 Anaerobic & Aerobic Comments: PATIENT NOT FASTINGPERFORMED BY: LabCoCar[facility] ClinicMjfuej7660 [facility] [id number] Information: SRC:WND [id number] RIGHT EYE Culture (61881) Antimicrobial MIHEAD (Normal) Comments: S = Susceptible; [...] hours. Anaerobic Culture Final report (Normal) :57 OGUIL-JFHZSIIJWVY-RWEHO (87939) Comments: PATIENT WAS FASTINGPERFORMED BY: [facility]6370 [facility] [id number] AFP, Serum, Tumor Marker 9.2 ng/mL (Abnormal) Range: 0.0-8.3 Comments: Khanh ECLIA methodology :57 PTT (Activated Partial Comments: PATIENT WAS FASTINGPERFORMED BY: [facility]6370 [facility] [id number] Thromboplastin Time) (42177) aPTT 26 {sec} (Normal) Range: 24-33 Comments: This test has not been validated for monitoring unfractionated heparintherapy. aPTT-based therapeutic ranges for unfractionated heparintherapy have not been established. For general guidelines onHeparin monitoring, refer to the [facility] Directory of Services. :57 PT (Prothrobim Time) (99587) Comments: PATIENT WAS FASTINGPERFORMED BY: [facility]6370 [facility] [id number] Prothrombin Time 10.5 {sec} (Normal) Range: 9.1-12.0 INR 1.0 (Normal) Range: 0.8-1.2 Comments: Reference interval is for non-anticoagulated patients. . Suggested INR therapeutic range for Vitamin K anta gonist therapy: Standard Dose (moderate intensity therapeutic range): 2.0 - 3.0 Higher intensity therapeutic range 2.5 - 3.5 :57 TSH (02966) Comments: PATIENT WAS FASTINGPERFORMED BY: [facility]6370 [facility] [id number] TSH 3.200 {uIU/mL} (Normal) Range: 0.450-4.500 :57 CBC WITH MANUAL DIFF Comments: PATIENT WAS FASTINGPERFORMED BY: CallVUCarrier ClinicWymnqu5182 [facility] [id number] Information: [id number] (29517) Immature Grans (Abs) 0.0 {x10E3/uL} (Normal) Range: [...] PANEL, COMPREHENSIVE Comments: PATIENT WAS FASTINGPERFORMED BY: CallVUCarrier ClinicHgznpq9808 [facility] [id number] (98199) ALT (SGPT) 15 [iU]/L (Normal) Range: 0-32 [...] (Abnormal) Range: 65-99 :29 HgA1C , Office (22698) HgA1C , Office 5.4 % (Normal) Range: [...] 7-18 GLU 76 mg/dL (Normal) Range: 70-110 3-Mlt-766083:50 LIPID LDL 82 mg/dL (Normal) Range: 0-130 [...] CHOL 150 mg/dL (Normal) Comments: <200 mg/dL Spsawvznp512-982 mg/dL Borderline>240 mg/dL High Risk :50 HgA1C , Office (72007) HgA1C , Office 5.8 % (Normal) Range: [...] be sent to the patient by the [facility] within 30 days. Approximately 10% of breast cancers are not detected by mammography. Anormal mammogram should not delay biopsy of a clinically suspiciousabnormality. Signed:Prashant Delgadillo M.D.S [facility] 2012 at 9:19:01 AM [phone] Signed GP/GP If you are the referring physician and would like to consult with theradiologist who provided this interpretation, please herbie Bonilla M.D. at [phone]. If this radiologist is unavailable, youwill be directed to another radiologist to assist. If you are a patient with a question regarding this report, pleaseco ntactyour referring physician directly. Professional Interpretation Provided By: [employer], Phone , These documents contain legally protected [...] on 06/15/13920 Sign by: Prashant Delgadillo MD 66-Liw-49211:27 THYROID Radiology Report See Note Comments: STUDY: [...] Delgadillo M.D.June 15, 2013 at 2:56:26 PM [phone] 8Electronically Signed GP/GP If you are the referring physician and would like to consult with theradiologist who provided this interpretation, please contact Sarmad Bonilla at [phone]. If this radiologist is unavailable, youwill be directed to another radiologist to assist. If you are a patient with a question regarding this report, pleasecontactyour referring physician directly. manda baugh Interpretation Provided By: [employer], Phone , These documents contain legally protected [...] on 06/15/131732 Sign by: Prashant Delgadillo MD 8-Sao-756303:18 URINE GENESIS CULTURE-NITA COL Comments: PATIENT NOT FASTINGPERFORMED BY: [facility] Xilpfp5863 [facility] [id number] Information: SRC: [id number] COUNT (22038) Antimicrobial MIHEAD (Normal) Comments: S = Susceptible; [...] primarily for treating urinary tract infections. (CLSI, F390-[id number],2009) Urine Culture,Comprehensive Final report (Normal) 04-Jun-20138:48 Urinalysis, Office (64951) UA - LEUKOCYTE ESTERASE Large (Normal) UA - NITRITE Positive (Normal) URINE UROBILINGN NITA TIMED 2 mg/dL (Normal) UA - PROTEIN Negative mg/dL (Normal) UA - BLOOD Negative (Normal) UA - KETONES Moderate mg/dL (Normal) UA - BILIRUBIN Moderate (Normal) UA - GLUCOSE Small mg/dL (Normal) 19-Okf-59054:06 MICROALBUMIN: CREATININE RATIO Comments: PATIENT WAS FASTINGPERFORMED BY: [employer] [facility] [id number] (73861) AND (92259) Microalb/Creat Ratio 27.4 {mg/g_creat} (Normal) Range: 0.0-30.0 Microalbumin, Urine 85.2 ug/mL (Abnormal) Range: 0.0-17.0 Creatinine, Urine 311.1 mg/dL (Abnormal) Range: 15.0-278.0 51-Evf-76846:06 METABOLIC PANEL, Comments: PATIENT WAS FASTINGPERFORMED BY: [employer]70 [facility] [id number] Information: ADD [id number] AND DRAW FEE 99 5585 COMPREHENSIVE (28788) ALT (SGPT) 29 [iU]/L (Normal) Range: 0-32 [...] Glucose, Serum 76 mg/dL (Normal) Range: 65-99 56-Eav-46107:06 TSH (64690) Comments: PATIENT WAS FASTINGPERFORMED BY: [facility]elgior[facility] DATAMzufnc6272 [facility] [id number] TSH 3.040 {uIU/mL} (Normal) Range: 0.450-4.500 17-Mzv-19708:06 LIPID PANEL (68178) Comments: PATIENT WAS FASTINGPERFORMED BY: [facility]gior[facility] Ocjotk1728 [facility] [id number] LDL/HDL Ratio 2.4 {ratio_units} (Normal) Range: 0.0-3.2 HDL Cholesterol 55 mg/dL (Normal) Comments: According to ATP-III Guidelines, HDL-C >59 mg/dL is considered anegative risk factor for CHD. LDL Cholesterol Calc 134 mg/dL (Abnormal) Range: 0-99 VLDL Cholesterol Ramandeep 18 mg/dL (Normal) Range: 5-40 Cholesterol, Total 207 mg/dL (Abnormal) Range: 100-199 Triglycerides 89 mg/dL (Normal) Range: 0-149 :06 PFWGS-DOWAJRKZLMM-WLIYR (31708) Comments: PATIENT WAS FASTINGPERFORMED BY: [facility]6370 [facility] [id number] AFP, Serum, Tumor Marker 5.4 ng/mL (Normal) Range: 0.0-8.3 Comments: Khanh ECLIA methodology :06 PTT (Activated Partial Comments: PATIENT WAS FASTINGPERFORMED BY: [address] [id number] Thromboplastin Time) (54543) aPTT 27 {sec} (Normal) Range: 24-33 Comments: This test has not been validated for monitoring unfractionated heparintherapy. aPTT-based therapeutic ranges for unfractionated heparintherapy have not been established. For general guidelines onHeparin monitoring, refer to the [facility] Directory of Services. :06 PT (Prothrobim Time) (59819) Comments: PATIENT WAS FASTINGPERFORMED BY: [facility]6370 [facility] [id number] INR 1.1 (Normal) Range: 0.8-1.2 Comments: Reference interval is for non-anticoagulated patients. . Suggested INR therapeutic range for Vitamin K anta gonist therapy: Standard Dose (moderate intensity therapeutic range): 2.0 - 3.0 Higher intensity therapeutic range 2.5 - 3.5 Prothrombin Time 11.0 {sec} (Normal) Range: 9.1-12.0 :51 HgA1C , Office (76582) HgA1C , Office 5.0 % (Normal) Range: 4.6 - 7.1 :48 CBCD PATHR Reviewed (Normal) Comments: Leukopenia.Relative neutrophilia.Clinical correlation necessary.Toni Yepez M.D. 02/16/13 AMENDED REPORT 02/16/13 1268 PATH REV previously reported as: January follReason: [...] 4.2-5.4 WBC 3.6 {k/mm3} (Abnormal) Range: 4.4-11.0 39-Ryd-92395:48 CMP GAP 9 (Normal) Range: 5-15 CO2 [...] mg/dL (Normal) Range: 70-110 :03 Rapid Flu (96018 x 2) Influenza A Ag positive b (Normal) :27 METABOLIC PANEL, COMPREHENSIVE Comments: PATIENT WAS FASTINGPERFORMED BY: LabCoCarrier ClinicTzoxgo2744 [facility] [id number] (32881) ALT (SGPT) 25 [iU]/L (Normal) Range: 0-32 [...] mg/dL (Normal) Range: 65-99 :27 LIPID PANEL (81716) Comments: PATIENT WAS FASTINGPERFORMED BY: CallVUCarrier ClinicRwrapj2287 [facility] [id number] LDL/HDL Ratio 0.9 {ratio_units} (Normal) Range: 0.0-3.2 LDL Cholesterol Calc 29 mg/dL (Normal) Range: 0-99 VLDL Cholesterol Ramandeep 17 mg/dL (Normal) Range: 5-40 HDL Cholesterol 32 mg/dL (Abnormal) Comments: According to ATP-III Guidelines, HDL-C >59 mg/dL is considered anegative risk factor for CHD. Cholesterol, Total 78 mg/dL (Abnormal) Range: 100-199 Triglycerides 84 mg/dL (Normal) Range: 0-149 :27 TSH (72696) Comments: PATIENT WAS FASTINGPERFORMED BY: CallVUCarrier ClinicBzqvqu3513 [facility] [id number] TSH 3.990 {uIU/mL} (Normal) Range: 0.450-4.500 :27 CBC WITH MANUAL DIFF Comments: PATIENT WAS FASTINGPERFORMED BY: [facility]6370 [facility] [id number] Information: [id number] (97330) Immature Grans (Abs) 0.0 {x10E3/uL} Range: 0.0-0.1 [...] 4.4 ng/mL (Normal) Range: 0.0-8.3 9:39 Comments: E[employer] ECLIA methodologyPerformed at: CB - LabCo[address] [id number] Director: Manuelito Mendez PhD, Phone: [phone] 95-Cgl-14017:39 CBCMD ANC 2.4 3/uL (Normal) Range: 2.0-7.7 [...] CHOL 130 mg/dL (Normal) Comments: <200 mg/dL Lmyhrcnsv457-085 mg/dL Borderline>240 mg/dL High Risk :39 MIACRE tMICROCREAT 16.5 {mg/g_CRE} (Normal) MIALB 23.3 mg/L (Normal) CREU 141.0 mg/dL (Normal) :39 PT INR 1.1 (Normal) PTP 13.6 s (Normal) Range: 11.9-14.4 :39 PTT PTTP 29.5 s (Normal) Range: 24.1-36.2 :17 Rapid Flu (83518 x 2) Influenza A Ag neg (Normal) :29 HgA1C , Office (32762) HgA1C , Office 5.9 % (Normal) Range: 4.6 - 7.1 :53 FT3 2.9 pg/mL (Normal) Range: 2.18-3.98 :53 T4F 1.26 ng/dL (Normal) Range: 0.76-1.46 :53 TPO 8 {IU/mL} (Normal) Range: 0-34 Comments: Performed at: [facility] Lab[address] [id number] Director: Codi Robles MD, Phone: [phone] TSH 1.23 {uIU/mL} (Normal) Range: 0.358-3.74 :04 HgA1C , Office (63837) HgA1C , Office 5.8 % (Normal) Range: [...] :26 LIPID Comments: ORDERED TSH LIPID CMP CBCSHRINERS HOSPITALS [facility] CHILDREN NORTHER[facility] CALIFORNIAFerJACINDA ORDERED VITD CMP CBCD VLDL 21 mg/dL [...] (Normal) Comments: ORDERED TSH LIPID CMP CBCMD [facility] SYSTEMFerJACINDA ORDERED VITD CMP CBCD Range: 0.358-3.74 :26 VITD 44.8 ng/mL (Normal) Comments: ORDERED TSH LIPID CMP CBCMD [facility] SYSTEMFerJACINDA ORDERED VITD CMP CBCD Range: 30.0-100.0 Comments: Vitamin D deficiency has been defined by the [facility] ofOhio[facility] Hospital[facility] and an Endocrine Society practice guideline as alevel of serum 25-OH vitamin D less than 20 ng/mL (1,2).The Endocrine Society went on to further define vitamin Dinsufficiency as a level between 21 and 29 ng/mL (2).1. IOM ([employer]year of Medicine). 2010. Dietary reference intakes for calcium and D. [place]: The National Academies Press.2. Sami PATEL, Sophie MOORE, Xiomara LARES, et al. Evaluation, treatment, and prevention of vitamin D deficiency: an Endocrine Society clinical practice guideline. JCEM. 2010; 96(7): 1911-30.Performed at: [place] [address] [place], [place] [id number] Director: Codi Robles MD, Phone: [phone] 27-Jan-20128:02 BILAT SCRN DIGITAL & CAD Radiology [...] Signed GP/GP Professional Interpretat ion Provided By: [facility], , To consult with a radiologist regarding this report, please call our 16C8mzeorhm line @ Dicta adni on 01/27/12 0813 by Faustina KING,Dukeribed on 01/27/12 0950 by ITS IMPORTSign by Faustina KING,Prashant on 01/27/12 0951 Sign by: Prashant Delgadillo MD 03-Ljh-701848:24 HgA1C , Office (11998) HgA1C , Office 5.7 % (Normal) Range: 4.6 - 7.1 22-Rgu-275229:24 Blood Glucose , Office (13393) Blood Glucose , Office 89 (Normal) 64-Ngo-763028:31 Urinalysis, Office (62733) UA - LEUKOCYTE ESTERASE Small (Normal) UA - NITRITE Positive (Normal) URINE UROBILINGN NITA TIMED Normal mg/dL (Normal) UA - PROTEIN 300 mg/dL (Normal) UA - PH 6.0 (Normal) UA - SPECIFIC GRAVITY 1.025 (Normal) UA - KETONES Small mg/dL (Normal) UA - BILIRUBIN Moderate (Normal) UA - GLUCOSE Negative (Normal) :15 HgA1C , Office (12129) HgA1C , Office 6.8 % (Normal) Range: 4.6 - 7.1 :15 Blood Glucose , Office (85842) Blood Glucose , Office 162 (Normal) 37-Xlj-699153:22 THYROID Radiology Report See Note (Normal) Comments: [...] Comments: PATIENT NOT FASTINGPERFORMED BY: CB [facility] Ygpryy0986 [address] RoadDublin [place] [id number] Information: SRC:URC [id number] COUNT (39045) Antimicrobial MIHEAD (Normal) Comments: S = Susceptible; [...] Final report Culture,Comprehensive (Normal) :32 Urinalysis, Office (34423) UA - LEUKOCYTE ESTERASE Moderate (Normal) URINE UROBILINGN NITA TIMED Normal mg/dL (Normal) UA - PROTEIN 100 mg/dL (Normal) UA - PH 6.0 (Normal) UA - BLOOD Hemolyzed Large (Normal) UA - SPECIFIC GRAVITY 1.025 (Normal) UA - KETONES Negative mg/dL (Normal) UA - BILIRUBIN Negative (Normal) UA - GLUCOSE Negative (Normal) :28 Blood Glucose , Office (21804) Blood Glucose , Office 223 (Normal) :10 Urinalysis, Office (71119) UA - BILIRUBIN Small (Normal) UA - BLOOD Hemolyzed Large (Normal) UA - GLUCOSE Small (Normal) Comments: 100 UA - KETONES Negative mg/dL (Normal) UA - LEUKOCYTE ESTERASE Trace (Normal) UA - NITRITE Positive (Normal) UA - PH 5.0 (Normal) UA - PROTEIN 300 mg/dL (Normal) UA - SPECIFIC GRAVITY 1.020 (Normal) URINE UROBILINGN NITA TIMED 2 mg/dL (Normal) 4-Ltz-298067:29 URINE GENESIS CULTURE-NITA COL Comments: PATIENT NOT FASTINGPERFORMED BY: [facility] Lofpdg9644 V[address] RoadHighlands-Cashiers Hospital [id number] Information: SRC:UR [id number] COUNT (13272) Antimicrobial MIHEAD (Normal) Comments: S = Susceptible; [...] mL (Normal) Urine Final report (Normal) Culture,Comprehensive 5-Sou-410068:31 Urinalysis, Office (92554) UA - BILIRUBIN Large (Normal) UA - BLOOD Hemolyzed Moderate (Normal) UA - GLUCOSE Moderate (Normal) Comments: 250 mg/dL UA - KETONES Small mg/dL (Normal) Comments: 15mg/dL UA - LEUKOCYTE ESTERASE Large (Normal) UA - NITRITE Positive (Normal) UA - PH 5.0 (Normal) UA - PROTEIN 300 mg/dL (Normal) UA - SPECIFIC GRAVITY 1.015 (Normal) URINE UROBILINGN NITA TIMED 8 mg/dL (Normal) 73-Zle-74704:28 CBCD,SMEAR DIFF RED CELL MORPH SeeNote {NORMAL} [...] (Abnormal) Range: 0.358-3.74 :28 HgA1C , Office (99175) HgA1C , Office 8.3 % (Abnormal) Range: 4.6 - 7.1 :28 Blood Glucose , Office (71853) Blood Glucose , Office 176 (Normal) :24 [...] 200-240 mg/dL Borderline >240 mg/dL High Risk 75-Hqo-464288:54 BRAIN/HEAD W/WO CONTRAST Radiology See Note Comments: [...] 02/09/11 1702 Sign by: Prashant Delgadillo MD 77-Wdd-40075:44 HgA1C , Office (49485) HgA1C , Office 7.4 % (Abnormal) Range: 4.6 - 7.1 :44 Blood Glucose , Office (92496) Blood Glucose , Office 206 (Normal) :37 [...] Report See Note (Normal) Comments: Exam Number: [id number] AMMOGRAPHY - BILATERAL SCREENING INDICATION:Routine annual screening [...] attaching a ResultCode to this exam. ADDENDUM: [id number] HPBI/MDS Reported By: PRASHANT DELGADILLO :14 HgA1C , Office (37088) HgA1C , Office 7.0 % (Normal) Range: 4.6 - 7.1 :14 Blood Glucose , Office (42924) Blood Glucose , Office 164 (Normal) :30 LASHA DIR SEMI-QL LASHA DIRECT 24 AU/mL (Normal) :30 ANTI-dsDNA AB 10 {IU/mL} (Normal) :30 TSH 6.39 {uIU/mL} (Abnormal) Range: 0.358-3.74 24-Kkt-480165:35 C-REACTIVE PROTEIN (08962) Comments: PATIENT NOT FASTINGPERFORMED BY: [employer] [id number] C-Reactive Protein, Quant 6.5 mg/L (Abnormal) Range: 0.0-4.9 49-Zpo-724861:35 SED RATE ERYTHROCYTE (41767) Comments: PATIENT NOT FASTINGPERFORMED BY: [employer]70 [facility] [id number] Sedimentation Rate-Westergren 14 mm/h (Normal) Range: 0-20 43-Bcb-848527:35 RHEUMATOID FACTOR-QUANT (68361) Comments: PATIENT NOT FASTINGPERFORMED BY: [employer]70 [facility] GamesS[facility] Hospital [id number] RA Latex Turbid. 7.6 {IU/mL} (Normal) Range: 0.0-13.9 42-Lxp-978743:35 LASHA (ANTINUCLEAR ANTIBODY) Comments: PATIENT NOT FASTINGPERFORMED BY: PayDivvySloop [facility] Hospital [id number] (48168) LASHA Direct Positive (Abnormal) :35 T3, FREE (TRIDOTHYRONINE) (79074) Comments: PATIENT NOT FASTINGPERFORMED BY: [facility]6370 [facility] [id number] Triiodothyronine,Free,Serum 2.8 pg/mL (Normal) Range: 2.0-4.4 :35 T4, FREE (THYROXINE) (62000) Comments: PATIENT NOT FASTINGPERFORMED BY: [address] [id number] T4,Free(Direct) 0.76 ng/dL (Abnormal) Range: 0.82-1.77 :35 Anti-TPO Antibody (63074) Comments: PATIENT NOT FASTINGPERFORMED BY: [place] [address] [facility] [id number] Thyroid Peroxidase (TPO) Ab <6 {IU/mL} (Normal) Range: 0-34 :35 TSH (55654) Comments: PATIENT NOT FASTINGPERFORMED BY: [place] [address]70 [facility] [id number] TSH 5.630 {uIU/mL} (Abnormal) Range: 0.450-4.500 Comments: Please note reference interval change :35 METABOLIC PANEL, Comments: PATIENT NOT FASTINGPERFORMED BY: [place] [address] [facility] [id number] Information: [id number] COMPREHENSIVE (88012) ALT (SGPT) 55 [iU]/L (Abnormal) Range: 0-40 [...] Glucose, Serum 151 mg/dL (Abnormal) Range: 65-99 80-Otu-426288:02 GENESIS CULTURE-OTHER (83640) Comments: PATIENT NOT FASTINGPERFORMED BY: LabCoCarrier ClinicFnfzoo4640 [facility] [id number] Information: SRC:THRT [id number] Result 1 Yeast isolated. (Normal) Comments: Moderate growthRequest for further identification must be madewithin 1 week. Upper Respiratory Culture Final report (Normal) 81-Shu-33460:37 Rapid Strep Test, Office (80259) Rapid Strep Test, Office Negative (Normal) 42-Ins-054506:11 THYROID (HP) Radiology Report See Note (Normal) Comments: Exam Number: [id number] CLINICAL:This is a 45-year-old female patient with [...] 126 mg/dLsuggests DIABETES MELLITUS per A.D.A. criteria. 23-Izl-59323:41 LIPID CHOL 147 mg/dL (Normal) Comments: <200 mg/dL Lekaeihcl831-959 mg/dL Borderline>240 mg/dL High Risk HDL 32 mg/dL (Abnormal) Comments: Reference RangeHDL <40 mg/dL Low HDL CholesterolHDL >or= 60 mg/dL High HDL Cholesterol LDL 89 mg/dL (Normal) Range: 0-130 TRIG 128 mg/dL (Normal) Comments: Serum Triglycerides Reference IntervalNormal <150 mg/dLBorderline high 150 - 199 mg/dLHigh 200 - 499 mg/ dLVery High > or = 500 mg/dL VLDL 26 mg/dL (Normal) Range: 5-40 30-Lxo-01500:41 TSH 4.85 {uIU/mL} (Abnormal) Range: 0.358-3.74 13-Dyl-990695:50 URINE GENESIS CULTURE-NITA COL Comments: PATIENT NOT FASTINGPERFORMED BY: CB [facility] Cmhete4659 Vines RoadDuSloop Memorial Hospital [id number] Information: SRC:UR ADD [id number] COUNT (93518) Result 1 Klebsiella pneumoniae Comments: 1,000 Colonies/mL [...] STrimethoprim/Sulfa S Urine Final report (Normal) Culture,Comprehensive 16-Ucz-97533:55 Urinalysis, Office (67371) UA - LEUKOCYTE ESTERASE Small (Normal) UA - NITRITE Negative (Normal) URINE UROBILINGN NITA TIMED Normal mg/dL (Normal) UA - PROTEIN 30 mg/dL (Normal) UA - PH 6.0 (Normal) UA - BLOOD Negative (Normal) UA - SPECIFIC GRAVITY 1.020 (Normal) UA - KETONES Negative mg/dL (Normal) UA - BILIRUBIN Negative (Normal) UA - GLUCOSE Negative (Normal) 3-Gzx-380983:37 PET/CT,TUMOR,BASE-THIGH,SUBS Radiology Report See Note (Normal) Comments: Exam Number: [id number] EXAM: Body PET study Head to Mid [...] 44:398P, 2003). w Reported By: ADELA MOLINA 2-Tdy-670087:00 PRANEETH+ELPU24 3467 ALBUMIN,U 37.7 % (Normal) QDDDZ-2-EFCB,U 3.2 % (Normal) ALKRX-4-RLHF,U 7.6 % (Normal) BETA GLOB,U 23.1 % (Normal) GAMMA GLOB,U 28.5 % (Normal) PRANEETH RESULT,U Comment (Normal) Comments: No monoclonality detected. M-SPIKE,UR% SeeNote % (Normal) Comments: Result: Not Observed PROTEIN, U24 62.1 {mg/24_hr} Range: 30.0-150.0 (Normal) PROTEIN,UR 2.3 mg/dL (Normal) Range: 0.0-15.0 0-Npt-677945:15 C-REACTIVE PROT < 2.90 mg/L (Normal) Range: 0.0-3.0 Comments: C-Reactive Protein (CRP) provides useful information for thediagnosis, therapy and monitoring of inflammatory processesand associated diseases. For the evaluation of Relative Riskfor Cardiovascular Dise ase, a High Sensitivity CRP (HSCRP)should be ordered. 8-Nvt-004052:15 CBCD,SMEAR DIFF PLT EST SeeNote (Normal) Comments: [...] SED RATE 11 mm/h (Normal) Range: 0-20 4-Wlk-271403:15 LDH 197 U/L (Abnormal) Range: 100-190 4-Tbn-380597:15 LIPID HDL 30 mg/dL (Abnormal) Comments: Reference [...] CHOL 154 mg/dL (Normal) Comments: <200 mg/dL Zwazfzpxg621-915 mg/dL Borderline>240 mg/dL High Risk :15 PROT.[id number] NOTE Comment (Normal) Comments: Protein electrophoresis scan will follow via computer,mail, or gastroenterology manager delivery.Performed at: [address] [id number] Director: Kamlesh Arana MD ALBUMIN,UR 54.2 % (Normal) DOLWG-9-TFTE,U 1.2 % (Normal) CYYJP-3-GBLP,U 9.4 % (Normal) BETA GLOB,U 23.4 % (Normal) GAMMA GLOB,U 11.8 % (Normal) M-SPIKE,U SeeNote % (Normal) Comments: Result: Not Observed PROTEIN,UR 13.6 mg/dL (Normal) Range: 0.0-15.0 :15 SPE [id number] A/G RATIO 1.8 (Normal) Range: 0.7-2.0 GLOBULIN, [...] electrophoresis scan will follow via computer,mail, or gastroenterology manager delivery. M-SPIKE SeeNote g/dL (Normal) Comments: Result: Not Observed GAMMA GLOBULIN 0.4 g/dL (Abnormal) Range: 0.5-1.6 ALBUMIN 3.9 g/dL (Normal) Range: 3.2-5.6 ALPHA-1 GLOBUL 0.2 g/dL (Normal) Range: 0.1-0.4 ALPHA-2 GLOBUL 0.7 g/dL (Normal) Range: 0.4-1.2 BETA GLOBULIN 0.9 g/dL (Normal) Range: 0.6-1.3 PROTEIN,TOTAL 6.1 g/dL (Normal) Range: 6.0-8.5 69-Gsv-050241:28 BRAIN/HEAD WITHOUT CONTRAST Radiology Report See Note (Normal) Comments: Exam Number: [id number] CT SCAN OF BRAIN HISTORYLytic lesion, lymphoma. [...] for confirmation. Reported By: TRUE NAGEL M.D. 19-Uyh-771352:23 SPINE,CERVICAL WITHOUT CONTRAS Radiology Report See Note (Normal) Comments: Exam Number: [id number] CLINICAL:44 year old female with cervical radiculopathy. [...] tumor involvement. Reported By: SHARYN JASMINE M.D. 93-Guz-967207:50 Blood Glucose , Office (46134) Blood Glucose , Office 105 (Normal) 65-Kum-588243:50 HgA1C , Office (19062) HgA1C , Office 6.1 % (Normal) Range: 4.6 - 7.1 98-Vwx-621615:24 URINE GENESIS CULTURE-NITA COL Comments: PATIENT NOT FASTINGPERFORMED BY: [facility] Mysxvw4062 [facility] [id number] Information: SRC:UR [id number] COUNT (94247) Antimicrobial MIHEAD (Normal) Comments: S = Susceptible; [...] mL (Normal) Urine Final report (Normal) Culture,Comprehensive 87-Qmn-462768:41 Urinalysis, Office (52109) UA - LEUKOCYTE ESTERASE Large (Normal) UA [...] Report See Note (Normal) Comments: Exam Number: [id number] Procedure completed. Please see MEDICAL RECORDS reports in PCI - OP - OP NOTE LET - LETTER. Reported By: BOONE CH M.D. :19 BLOOD GAS, O2 SAT ONLY - SUBSQ Radiology Report See Note (Normal) Comments: Exam Number: [id number] Procedure completed. Please see MEDICAL RECORDS reports in PCI - OP - OP NOTE LET - LETTER. Reported By: BOONE CH M.D. :19 BLOOD GAS, O2 SAT ONLY - SUBSQ Radiology Report See Note (Normal) Comments: Exam Number: [id number] Procedure completed. Please see MEDICAL RECORDS reports in PCI - OP - OP NOTE LET - LETTER. Reported By: BOONE CH M.D. 04-Aug-20096:45 RHC/LHC/CORS/LV Radiology Report See Note (Normal) Comments: Exam Number: [id number] Procedure completed. Please see MEDICAL RECORDS reports [...] 3.5-5.1 NA 135 mmol/L (Abnormal) Range: 136-145 6-Nfz-922626:59 CBC HCT 40.9 % (Normal) Range: 37-47 [...] MIXED GRAM POSITIVE ORGANISMS :58 Urinalysis, Office (68347) UA - BILIRUBIN Negative (Normal) UA - BLOOD Negative (Normal) UA - GLUCOSE Negative (Normal) UA - KETONES Negative mg/dL (Normal) UA - LEUKOCYTE ESTERASE Small (Normal) Comments: aw UA - NITRITE Negative (Normal) UA - PH 6.0 (Normal) UA - PROTEIN Negative mg/dL (Normal) UA - SPECIFIC GRAVITY 1.010 (Normal) URINE UROBILINGN NITA TIMED Normal mg/dL (Normal) :53 HgA1C , Office (71304) HgA1C , Office 5.7 % (Normal) Range: 4.6 - 7.1 :53 Blood Glucose , Office (88634) Blood Glucose , Office 133 (Normal) :24 [...] (Normal) Range: 6.4-8.2 :53 HgA1C , Office (47034) HgA1C , Office 10.0 % (Abnormal) Range: 4.6 - 7.1 :53 Blood Glucose , Office (88980) Blood Glucose , Office 410 (Normal) :46 [...] mg/dL VLDL 49 mg/dL (Abnormal) Range: 5-40 9-Jzo-718823:46 MICROALB:CRE UR MALB:CREAT 33.3 {mg/g_CRE} (Abnormal) MICROALBUMIN,UR 62.2 mg/L (Normal) UR CREAT 186.7 mg/dL (Normal) 33-Qcv-600207:11 LIPID Comments: PATIENT NOT FASTING/DEMANDED TO BE [...] mg/dL VLDL 31 mg/dL (Normal) Range: -40 30-Dsw-763129:11 LIVER Comments: PATIENT NOT FASTING/DEMANDED TO BE DRAWN ALT 43 U/L (Normal) Range: 30-65 D BILI 0.07 mg/dL (Normal) Range: 0.00-0.30 T BILI 0.35 mg/dL (Normal) Range: 0.00-1.00 ALB 3.4 g/dL (Normal) Range: 3.4-5.0 ALK P 210 U/L (Abnormal) Range: 50-136 AST 27 U/L (Normal) Range: 15-37 T PROT 6.4 g/dL (Normal) Range: 6.4-8.2 53-Vnq-906380:23 Urinalysis, Office (99024) Comments: done BC UA - BILIRUBIN Negative (Normal) UA - BLOOD Hemolyzed Large (Normal) UA - GLUCOSE Large (Normal) Comments: > 1000mg/dL UA - KETONES Negative mg/dL (Normal) UA - LEUKOCYTE ESTERASE Moderate (Normal) UA - NITRITE Negative (Normal) UA - PH 6.0 (Normal) UA - PROTEIN 30 mg/dL (Normal) UA - SPECIFIC GRAVITY 1.010 (Normal) URINE UROBILINGN NITA TIMED Normal mg/dL (Normal) 09-Kgz-302358:44 MYOCARD PERF SPECT REST/STRESS Radiology Report See Note (Normal) Comments: Exam Number: [id number] MYOCARDIAL PERFUSION SCAN TECHNIQUEThe patient was injected [...] of 37%. Reported By: NOE MORRIS M.D. 77-Cpa-05540:39 SPINE, LUMBAR W/W/O CONTRAST Radiology Report See Note (Normal) Comments: Exam Number: [id number] MAGNETIC RESONANCE IMAGING OF THE LUMBAR SPINE [...] other abnormality. Reported By: SUSAN GOMEZ M.D. 57-Qqr-106181:04 CULTURE, URINE URINE CULTURE See Note {CFU/mL} (Normal) Comments: COLONY COUNT 25,000-50,000 ORGANISM 1: MIXED GRAM POSITIVE ORGANISMS 44-Xvt-383625:15 Urinalysis, Office (81055) UA - LEUKOCYTE ESTERASE Small (Normal) Comments: aw UA - NITRITE Negative (Normal) UA - PH 5.0 (Normal) UA - PROTEIN Negative mg/dL (Normal) URINE UROBILINGN NITA TIMED Normal mg/dL (Normal) UA - BILIRUBIN Negative (Normal) UA - BLOOD Negative (Normal) UA - GLUCOSE Negative (Normal) UA - KETONES Negative mg/dL (Normal) UA - SPECIFIC GRAVITY 1.025 (Normal) 53-Zef-376633:09 Blood Glucose , Office (46393) Blood Glucose , Office 231 (Normal) 61-Cyp-494571:09 HgA1C , Office (90407) HgA1C , Office 7.1 % (Normal) Range: 4.6 - 7.1 58-Sdt-504974:42 CBCD,SMEAR DIFF CELLS COUNTED 100 (Normal) HCT [...] 47-70 WBC 4.3 K/mm3 (Abnormal) Range: 4.4-11.0 12-Gsq-129519:42 COMP METABOLIC A/G 1.2 {RATIO} (Normal) Range: [...] for patient's is the eGFRmultiplied by 1.212. [facility] Laboratory uses the abbreviated Modification of [...] Disease W/O Kidney Disease>/= 90 Stage One [id number] - 89 Stage Two Suspect Decreased GFR30 [...] T PROT 6.5 g/dL (Normal) Range: 6.4-8.2 48-Mss-[id number] LIPID CHOL 182 mg/dL (Normal) Comments: <200 [...] mg/dL VLDL 36 mg/dL (Normal) Range: 5-40 25-Nfw-881283:42 MICROALB:CRE UR MALB:CREAT 35.4 {mg/g_CRE} (Abnormal) MICROALBUMIN,UR 54.7 mg/L (Normal) UR CREAT 154.6 mg/dL (Normal) 57-Mbf-489792:42 TSH 2.57 {uIU/mL} (Normal) Range: 0.34-4.82 :40 CULTURE, URINE URINE CULTURE See Note {CFU/mL} (Normal) Comments: COLONY COUNT 1000-10,000 ORGANISM 1: MIXED GRAM POS & NEG ORGANISMS :36 Urinalysis, Office ([id number]) UA - BILIRUBIN Negative (Normal) UA - BLOOD Non Hemolyzed Trace (Normal) UA - KETONES Negative mg/dL (Normal) UA - LEUKOCYTE ESTERASE Moderate (Normal) UA - NITRITE Negative (Normal) UA - PH 5.0 (Normal) UA - PROTEIN Negative mg/dL (Normal) UA - SPECIFIC GRAVITY 1.015 (Normal) URINE UROBILINGN NITA TIMED Normal mg/dL (Normal) UA - GLUCOSE Negative (Normal) 15-Dxu-484626:20 CULTURE, URINE URINE CULTURE See Note {CFU/mL} (Normal) Comments: COLONY COUNT 25,000-50,000 ORGANISM 1: MIXED GRAM POS & NEG ORGANISMS :12 Urinalysis, Office ([id number]) UA - BILIRUBIN Negative (Normal) UA - BLOOD Negative (Normal) UA - GLUCOSE Negative (Normal) UA - KETONES Negative mg/dL (Normal) UA - LEUKOCYTE ESTERASE Small (Normal) UA - NITRITE Negative (Normal) UA - PH 6.0 (Normal) UA - PROTEIN Negative mg/dL (Normal) UA - SPECIFIC GRAVITY 1.005 (Normal) URINE UROBILINGN NITA TIMED Normal mg/dL (Normal) 47-Zzy-995958:08 CBCD,SMEAR DIFF CELLS COUNTED 100 (Normal) EOS [...] Range: 0.34-4.82 :28 Blood Glucose , Office (03278) Blood Glucose , Office 124 (Normal) :28 HgA1C , Office (78264) HgA1C , Office 6.1 % (Normal) Range: 4.6 - 7.1 :38 CERULOPLAS 1560 21.3 mg/dL (Normal) Range: 17.9-53.3 Comments: Performed At: [facility] [place], [place] [id number] :38 FERRITIN 189 ng/mL (Normal) Range: 8-252 :38 HEP-ABC [id number] HB CORE [id number] SeeNote (Normal) Comments: Result: Negative HB SURF [...] T PROT 6.5 g/dL (Normal) Range: 6.4-8.2 75-Bvs-863490:38 MITOCHN AB 6650 <20.0 {Units} (Normal) Range: 0.0-20.0 Comments: Negative 0.0 - 20.0 Equivocal 20.1 - 24.9 Positive >24.9 . Mitochondrial (M2) Antibodies are found in 90-96% of patients with primary biliary cirrhosis. 50-Btf-326467:03 GGTP 61 U/L (Abnormal) Range: 5-55 :03 LIVER ALB 3.7 g/dL (Normal) Range: 3.4-5.0 ALK P 161 U/L (Abnormal) Range: 50-136 ALT 35 U/L (Normal) Range: 30-65 AST 18 U/L (Normal) Range: 15-37 D BILI 0.06 mg/dL (Normal) Range: 0.00-0.30 T BILI 0.33 mg/dL (Normal) Range: 0.00-1.00 T PROT 6.5 g/dL (Normal) Range: 6.4-8.2 4-Qdp-079526:02 THYROID (HP) Radiology Report See Note (Normal) Comments: Exam Number: [id number] THYROID ULTRASOUND HISTORYThyromegaly. High-resolution, real-time linear images [...] is recommended. Reported By: TRUE NAGEL M.D. 55-Jpf-455174:05 Blood Glucose , Office (33362) Blood Glucose , Office 135 (Normal) 96-Fco-722644:05 HgA1C , Office (27308) HgA1C , Office 5.6 % (Normal) Range: [...] Report See Note (Normal) Comments: Exam Number: [id number] CT BRAIN WITHOUT AND WITH INTRAVENOUS CONTRAST [...] clinically warranted. Reported By: AIDAN MASON M.D. 14-Mxc-447592:30 CBCD Comments: CALL [phone] TO [phone] BASO% 0.8 % (Normal) Range: 0-1 EO% [...] 1+ANISOCYTOSIS WBC 3.8 K/mm3 (Abnormal) Range: 4.4-11.0 16-Vav-204231:30 COMP METABOLIC Comments: CALL [phone] TO [phone] A/G 1.5 {RATIO} (Normal) Range: 0.9-2.4 ALB [...] :30 LDH 206 U/L (Abnormal) Comments: CALL [phone] TO [phone] Range: 100-190 :30 URIC 5.7 mg/dL (Normal) Comments: CALL [phone] TO [phone] Range: 2.6-6.0 :30 CULT, DP WOUND Comments: [...] mg/dL (Abnormal) Range: 40-230 Comments: Performed At: [address] [id number] :41 LDH 211 U/L (Abnormal) Range: 100-190 [...] PT IN CATHLABPrecautions*: NOT APPLICABLE Range: 0.34-4.82 63-Ple-437923:20 BMP Comments: COMMENTS: BED 13 DR FASTPrecautions*: [...] 3.5-5.1 NA 136 mmol/L (Normal) Range: 136-145 87-Ejj-074579:20 CBCD Comments: COMMENTS: BED 13 DR FASTPrecautions*: [...] 47-70 WBC 23.9 K/mm3 (Abnormal) Range: 4.4-11.0 73-Twa-91982:30 AFB C&S 488221 Comments: Precautions*: CHEMO PRECAUTIONSSPECIMEN DESCRIPTION: #2 SAME SOURCE AFB CULT See Note Comments: TESTING PERFORMED AT [facility]. ORIGINAL REPORT ON FILE IN LAB CONTAINS ADDITIONAL TEST SITE INFORMATION. (Normal) CULTURE, ACID FAST NO ACID-FAST BACILLI ISOLATED AFTER 6 WEEKS. AFB SMEAR See Note Comments: TESTING PERFORMED AT [facility]. ORIGINAL REPORT ON FILE IN LAB CONTAINS ADDITIONAL TEST SITE INFORMATION. (Normal) ACID FAST BACILLUS SMEAR NO ACID-FAST BACILLI OBSERVED ON SMEAR. 13-D CULT,ALFREDITO See Note Comments: Precautions*: CHEMO PRECAUTIONSSPECIMEN DESCRIPTION: #1 SAME SOURCE ec-2 8482 (Normal) Comments: ` TESTING PERFORMED AT [facility]. ORIGINAL REPORT ON FILE IN LAB CONTAINS ADDITIONAL TEST SITE INFORMATION. 0069 CULTURE, FUNGUS NO YEAST OR MOLD ISOLATED AFTER 4 WEEKS. :30 13-D CYTOLOGY, SeeNote Comments: Result: SEE PATHOLOGY REPORT Specimen submitted to Anatomical Pathology Department for testing. ec-2 BF/CSF (Normal) 0069 :30 40-Max-00636:30 FLUID P-FLU (Normal) Comments: OPERATION Not noted [...] DRAWN 07/22/06-TEST MISSED Range: 100-190 :51 SPE [id number] A/G RATIO 1.3 (Normal) Range: 0.7-2.0 ALBUMIN [...] Evidenceof monoclonal protein is not apparent.Performed At: [facility], [place] [id number] M-SPIKE SeeNote (Normal) Comments: Result: Not Observed NOTE: Comment (Normal) Comments: Protein electrophoresis scan will follow via mail orcourier. PROTEIN,TOTAL 6.5 g/dL (Normal) Range: 6.0-8.5 :49 Blood Glucose , Office (81247) Blood Glucose , Office 84 (Normal) :49 HgA1C , Office (51600) HgA1C , Office 6.6 % (Normal) Range: [...] tachycardia Planned Observations CBC with auto diff (18572)Indication: Diabetes mellitus type II, controlled On: 8-Bck-658874:03 Request LIPID PANEL (91061)Indication: Diabetes mellitus type II, controlled On: :03 Request METABOLIC PANEL, COMPREHENSIVE (41099)Indication: Diabetes mellitus type II, controlled On: : Request HGB A1C (14170)Indication: Diabetes mellitus type II, controlled On: :02 Request TSH (THYROID STIMULATING HORMONE) (53016)Indication: Acquired hypothyroidism On: : Request Metabolic Panel, Basic (94947)Indication: Hyponatremia On: :00 Request TSH (68244)Indication: Diabetes mellitus type II, controlled On: :48 Request Vitamin B-12 (cyanocobalamin) (10449)Indication: B12 deficiency On: :45 Request CBC WITH MANUAL DIFF (80937)Indication: B12 deficiency On: :45 Request T3, FREE (TRIDOTHYRONINE) (59179)Indication: Thyroid nodule On: :48 Request Comments: add to labs already drawn T4, FREE (THYROXINE) (29606)Indication: Thyroid nodule On: :47 Request Comments: add to labs already drawn Digoxin (17236)Indication: Cardiomyopathy On: :44 Request LIPID PANEL (36915)Indication: Mixed hyperlipidemia On: :43 Request TSH (61996)Indication: Acquired hypothyroidism On: :43 Request Vitamin D Hydroxy (85297)Indication: Vitamin D deficiency On: :43 Request IQLUP-SPYNYQHTDNI-CZNFL (58202)Indication: Fatty liver On: :42 Request VITAMIN B-12 (CYANOCOBALAMIN) (83755)Indication: Fatigue On: :42 Request URINALYSIS, W/ MICRO (95110)Indication: Diabetes mellitus type II, controlled On: 16-Dtu-262076:30 Request MICROALBUMIN: CREATININE RATIO (20801) AND (94522)Indication: Diabetes mellitus type II, controlled On: :29 Request CBC with auto diff (34307)Indication: Diabetes mellitus type II, controlled On: 38-Udh-696719:29 Request METABOLIC PANEL, COMPREHENSIVE (11638)Indication: Diabetes mellitus type II, controlled On: 81-Pcx-410019:29 Request HGB A1C (48626)Indication: Diabetes mellitus type II, controlled On: 76-Rkg-019344:29 Request HEPATIC FUNCTION PANEL (92193)Indication: Elevated liver enzymes On: 6-Spq-910910:38 Request Comments: do in hospital tuesday when get US Metabolic Panel, Comprehensive (80970)Indication: Epigastric pain On: 78-Gfl-552447:54 Request Sed Rate Erythrocyte (99486)Indication: Epigastric pain On: :54 Request CBC, Platelets & Auto Diff (59793)Indication: Epigastric pain On: :54 Request OVA & PARASITE DIR SMEAR (15598)Indication: Diarrhea On: 62-Wkl-867562:53 Request OCCULT BLOOD FECES SCREEN (71273)Indication: Diarrhea On: :53 Request LEUKOCYTE COUNT, FECAL (85985)Indication: Diarrhea On: 17-Zkt-205063:53 Request C-DIFFICILE, STOOL (27239)Indication: Diarrhea On: :53 Request GENESIS CULTURE-STOOL (79267)Indication: Diarrhea On: 42-Bym-156298:53 Request Magnesium (77169)Indication: Fatigue On: 33-Oed-747790:42 Request Vitamin B-12 (cyanocobalamin) (38937)Indication: Fatigue On: 11-Ids-527142:41 Request MICROALBUMIN: CREATININE RATIO (49841) AND (97310)Indication: Diabetes mellitus type II, controlled On: 80-Gtr-590215:40 Request LIPID PANEL (53520)Indication: Mixed hyperlipidemia On: 27-Hfw-880305:39 Request CBC W/AUTO DIFF WBC (50922)Indication: Fatty liver On: 28-Hnu-675863:30 Request METABOLIC PANEL, COMPREHENSIVE (65300)Indication: Fatty liver On: 64-Qqd-747396:30 Request Vitamin D Hydroxy (20809)Indication: Vitamin D deficiency On: 59-Teo-460661:30 Request TSH (31182)Indication: Acquired hypothyroidism On: 93-Yek-377183:30 Request Digoxin (69160)Indication: Cardiomyopathy On: 73-Wja-036534:29 Request LIPASE (95398)Indication: Epigastric pain On: :28 Request AMYLASE (81738)Indication: Epigastric pain On: :28 Request URINE GENESIS CULTURE-IDENTIFICATN (48649)Indication: Leukocytes in urine On: 50-Qno-190834:38 Request MICROALBUMIN: CREATININE RATIO (92760) AND (22081)Indication: Essential hypertension with goal blood pressure less than 130/80 On: :58 Request CBC W/AUTO DIFF WBC (86838)Indication: Essential hypertension with goal blood pressure less than 130/80 On: :58 Request METABOLIC PANEL, COMPREHENSIVE (91927)Indication: Essential hypertension with goal blood pressure less than 130/80 On: :58 Request XRKWF-DGKFEVSMIGT-HIIKV (50431)Indication: Abnormal tumor markers On: :57 Request Vitamin D Hydroxy (91251)Indication: Vitamin D deficiency On: :09 Request LIPOPROTEIN, BLD, BY NMR (78193)Indication: Mixed hyperlipidemia On: :09 Request CBC W/AUTO DIFF WBC (09771)Indication: Diabetes mellitus type II, controlled On: :09 Request METABOLIC PANEL, COMPREHENSIVE (86057)Indication: Diabetes mellitus type II, controlled On: :09 Request Potassium Serum (05111)Indication: Hypopotassemia On: :02 Request PSTVV-DIPLMBQPWPB-VMYKI (73980)Indication: Fatty liver On: :57 Request MICROALBUMIN: CREATININE RATIO (95981) AND (99368)Indication: Essential hypertension with goal blood pressure less than 130/80 On: :45 Request CBC W/AUTO DIFF WBC (01191)Indication: Essential hypertension with goal blood pressure less than 130/80 On: :45 Request METABOLIC PANEL, COMPREHENSIVE (83176)Indication: Essential hypertension with goal blood pressure less than 130/80 On: :45 Request Vitamin D Hydroxy (05914)Indication: Vitamin D deficiency On: :45 Request TSH (82749)Indication: Acquired hypothyroidism On: :45 Request LIPID PANEL (50792)Indication: Mixed hyperlipidemia On: :45 Request CBC W/AUTO DIFF WBC (92776)Indication: Diabetes mellitus type II, controlled On: :28 Request XJGQL-FFMXTWEJHAP-GORMA (41956)Indication: Fatty liver On: : Request METABOLIC PANEL, COMPREHENSIVE (58934)Indication: Mixed hyperlipidemia On: : Request LIPOPROTEIN, BLD, BY NMR (11869)Indication: Mixed hyperlipidemia On: : Request Metabolic Panel, Basic (31618)Indication: Hypopotassemia On: :55 Request Comments: 10 days CBC (AUTO) (73048)Indication: Uncontrolled type II diabetes mellitus On: : Request Vitamin D Hydroxy (34940)Indication: Vitamin D deficiency On: 19-Wlt-115407:03 Request MICROALBUMIN: CREATININE RATIO (75973) AND (64182)Indication: Uncontrolled type II diabetes mellitus On: :02 Request METABOLIC PANEL, COMPREHENSIVE (28500)Indication: Essential hypertension with goal blood pressure less than 130/80 On: 34-Hgv-906655:02 Request KLXJF-UVESUHGKFZP-CWJVH (81807)Indication: Fatty liver On: : Request LIPID PANEL (91599)Indication: Mixed hyperlipidemia On: : Request TSH (64097)Indication: Thyroid nodule On: : Request CBC W/AUTO DIFF WBC (76401)Indication: Uncontrolled type II diabetes mellitus On: :47 Request METABOLIC PANEL, COMPREHENSIVE (28983)Indication: Uncontrolled type II diabetes mellitus On: :47 Request LIPID PANEL (00565)Indication: Mixed hyperlipidemia On: :47 Request Vitamin D Hydroxy (47945)Indication: Vitamin D deficiency On: :47 Request WHQJR-ILXMWCOZDEQ-HJLQT (11692)Indication: Fatty liver On: : Request CBC W/AUTO DIFF WBC (38584)Indication: Uncontrolled type II diabetes mellitus On: :26 Request LIPID PANEL (44629)Indication: Mixed hyperlipidemia On: : Request MICROALBUMIN: CREATININE RATIO (65689) AND (20295)Indication: Uncontrolled type II diabetes mellitus On: : Request TSH (33845)Indication: Acquired hypothyroidism On: : Request METABOLIC PANEL, COMPREHENSIVE (54865)Indication: Essential hypertension with goal blood pressure less than 130/80 On: : Request Vitamin D Hydroxy (00870)Indication: Vitamin D deficiency On: : Request CALCIFEDIOL (06441)Indication: Vitamin D deficiency On: 73-Rnk-687336:44 Request Comments: to be done Jun 2015 after done with ergocalciferol URINE GENESIS CULTURE (NITA COL COUNT) (75383)Indication: UTI (lower urinary tract infection) On: 9-Jpx-564461:22 Request LIPID PANEL (53301)Indication: Mixed hyperlipidemia On: 1-Hog-203322:15 Request CBC W/AUTO DIFF WBC (89421)Indication: Uncontrolled type II diabetes mellitus On: 9-Prj-735325:14 Request METABOLIC PANEL, COMPREHENSIVE (27408)Indication: Uncontrolled type II diabetes mellitus On: 6-Ubt-230827:14 Request TSH (90673)Indication: Acquired hypothyroidism On: 2-Crw-231880:14 Request RNYQE-SPNIDVMHNSP-SDVMQ (38768)Indication: Fatty liver On: 6-Koe-856920:14 Request CBC, Platelets & Auto Diff (54470)Indication: HX, PERSONAL, MALIGNANCY, LYMPHATIC NEC On: 83-Mqq-13447:07 Request CBC WITH MANUAL DIFF (84168)Indication: Abnormal glucose tolerance test On: :33 Request MICROALBUMIN: CREATININE RATIO (24785) AND (97558)Indication: Abnormal glucose tolerance test On: :33 Request LIPID PANEL (39180)Indication: Mixed hyperlipidemia On: :31 Request METABOLIC PANEL, COMPREHENSIVE (35849)Indication: Abnormal glucose tolerance test On: :31 Request URINE GENESIS CULTURE-NITA COL COUNT (93973)Indication: Dysuria On: 87-Sgv-072906:03 Request RETICULOCYTE COUNT (50064)Indication: Anemia On: :37 Request Iron (30261)Indication: Anemia On: :37 Request Ferritin (42849)Indication: Anemia On: :37 Request CBC (Auto) (47714)Indication: Anemia On: :37 Request CBC, Platelets & Auto Diff (67116)Indication: Fever On: :03 Request Metabolic Panel, Comprehensive (46714)Indication: Fever On: :03 Request HgA1C , Office (43144)Indication: Abnormal glucose tolerance test On: :55 Request CBC WITH MANUAL DIFF (64466)Indication: Abnormal glucose tolerance test On: :53 Request METABOLIC PANEL, COMPREHENSIVE (25437)Indication: Abnormal glucose tolerance test On: :53 Request LIPID PANEL (97725)Indication: Mixed hyperlipidemia On: :53 Request KWLTB-DKEQZWFXJVH-PNQOO (27249)Indication: Fatty liver On: 67-Tlj-320327:53 Request PTT (Activated Partial Thromboplastin Time) (34086)Indication: Fatty liver On: :53 Request PT (Prothrobim Time) (31643)Indication: Fatty liver On: 94-Zkg-974031:53 Request MICROALBUMIN: CREATININE RATIO (37091) AND (34184)Indication: Abnormal glucose tolerance test On: 49-Cdr-820168:49 Request Anti-TPO Antibody (07157)Indication: Acquired hypothyroidism On: :14 Request Comments: 1 month TSH (69001)Indication: Acquired hypothyroidism On: 04-Cdf-427694:13 Request Comments: 1 month T4, FREE (THYROXINE) (76739)Indication: Acquired hypothyroidism On: :13 Request Comments: 1 month T3, FREE (TRIDOTHYRONINE) (72719)Indication: Acquired hypothyroidism On: 86-Tym-401292:13 Request Comments: 1 month CBC WITH MANUAL DIFF (52956)Indication: Abnormal glucose tolerance test On: :38 Request METABOLIC PANEL, COMPREHENSIVE (86733)Indication: Abnormal glucose tolerance test On: :38 Request LIPID PANEL (28402)Indication: Mixed hyperlipidemia On: :38 Request MICROALBUMIN: CREATININE RATIO (37056) AND (46035)Indication: Abnormal glucose tolerance test On: 24-Wnm-096735:56 Request CBC WITH MANUAL DIFF (61549)Indication: Elevated LFTs On: 99-Eex-871720:56 Request METABOLIC PANEL, COMPREHENSIVE (73543)Indication: Elevated LFTs On: 61-Coe-181271:56 Request LIPID PANEL (15921)Indication: Mixed hyperlipidemia On: 02-Qzo-183474:56 Request TSH (23377)Indication: Acquired hypothyroidism On: :56 Request CBC WITH MANUAL DIFF (49279)Indication: Essential hypertension with goal blood pressure less than 130/80 On: :34 Request TSH (69237)Indication: Acquired hypothyroidism On: :34 Request METABOLIC PANEL, COMPREHENSIVE (49705)Indication: Fatty liver On: :33 Request LIPID PANEL (93560)Indication: Mixed hyperlipidemia On: 04-Oct-20119:33 Request MICROALBUMIN: CREATININE RATIO (93338) AND (19057)Indication: Uncontrolled type II diabetes mellitus On: :46 Request TSH (36756)Indication: Acquired hypothyroidism On: :46 Request LIPID PANEL (17704)Indication: Mixed hyperlipidemia On: :45 Request METABOLIC PANEL, COMPREHENSIVE (16688)Indication: Elevated LFTs On: :45 Request HgA1C , Office (57530)Indication: Uncontrolled type II diabetes mellitus On: :28 Request URINE GENESIS CULTURE-NITA COL COUNT (88261)Indication: Cystitis, acute On: :43 Request URINE GENESIS CULTURE-IDENTIFICATN (84066)Indication: Dysuria On: :10 Request CBC WITH MANUAL DIFF (73379)Indication: Headache On: :56 Request METABOLIC PANEL, COMPREHENSIVE (47742)Indication: Headache On: :56 Request LIPID PANEL (76196)Indication: Mixed hyperlipidemia On: :56 Request TSH (79101)Indication: Acquired hypothyroidism On: 71-Jlq-792886:56 Request METABOLIC PANEL, COMPREHENSIVE (35922)Indication: Uncontrolled type II diabetes mellitus On: :28 Request HEPATIC FUNCTION PANEL (20081)Indication: Mixed hyperlipidemia On: :28 Request LIPID PANEL (29191)Indication: Mixed hyperlipidemia On: :28 Request LIPID PANEL (29498)Indication: Mixed hyperlipidemia On: :39 Request MICROALBUMIN: CREATININE RATIO (81478) AND (13159)Indication: Uncontrolled type II diabetes mellitus On: :39 Request CBC WITH MANUAL DIFF (80995)Indication: Essential hypertension with goal blood pressure less than 130/80 On: :39 Request METABOLIC PANEL, COMPREHENSIVE (94834)Indication: Elevated LFTs On: :39 Request TSH (43390)Indication: Acquired hypothyroidism On: :36 Request TSH (51065)Indication: Thyroid nodule On: 30-Cji-429878:20 Request METABOLIC PANEL, COMPREHENSIVE (74403)Indication: Elevated LFTs On: :19 Request LIPID PANEL (35048)Indication: Mixed hyperlipidemia On: :19 Request C-REACTIVE PROTEIN (87098)Indication: Abnormal findings on diagnostic imaging of other specified body structures On: 99-Sfu-813721:02 Request SED RATE ERYTHROCYTE (52611)Indication: Abnormal findings on diagnostic imaging of other specified body structures On: 07-Vjm-322257: Request LDH (LD) (LACTATE DEHYDROGENASE) (75951)Indication: Abnormal findings on diagnostic imaging of other specified body structures On: 22-Wpo-120608: Request Urine Protein Electrophoresis (UPEP) (45143)Indication: Abnormal findings on diagnostic imaging of other specified body structures On: 49-Kuj-136770: Request Serum Protein Electrophoresis (SPEP) (94422)Indication: Abnormal findings on diagnostic imaging of other specified body structures On: 76-Vux-297002: Request METABOLIC PANEL, COMPREHENSIVE (22978)Indication: Diabetes mellitus type II, controlled On: :19 Request LIPID PANEL (62439)Indication: Mixed hyperlipidemia On: :19 Request URINE GENESIS CULTURE-NITA COL COUNT (53942)Indication: Dysuria On: 55-Ldh-146698:58 Request HEPATIC FUNCTION PANEL (41566)Indication: Elevated LFTs On: :18 Request LIPID PANEL (63484)Indication: Mixed hyperlipidemia On: 79-Rlr-380696:17 Request MICROALBUMIN: CREATININE RATIO (35966) AND (30112)Indication: Uncontrolled type II diabetes mellitus On: :47 Request CBC WITH MANUAL DIFF (95742)Indication: Uncontrolled type II diabetes mellitus On: 2-Lxs-043585:47 Request METABOLIC PANEL, COMPREHENSIVE (32261)Indication: Uncontrolled type II diabetes mellitus On: :47 Request HEPATIC FUNCTION PANEL (24614)Indication: Elevated LFTs On: 5-Wna-948899:45 Request LIPID PANEL (60356)Indication: Mixed hyperlipidemia On: 7-Yni-170108:44 Request HEPATIC FUNCTION PANEL (61187)Indication: Fatty liver On: 1-Emr-645251:30 Request LIPID PANEL (36343)Indication: Mixed hyperlipidemia On: 7-Zhh-513802:30 Request URINE GENESIS CULTURE (NITA COL COUNT) (59918)Indication: Low back pain potentially associated with radiculopathy On: 47-Lme-213623:03 Request MICROALBUMIN: CREATININE RATIO (90732) AND (79279)Indication: Dysuria On: 50-Ikz-189598:05 Request LIPID PANEL (39857)Indication: Dysuria On: 79-Uoa-442187:05 Request TSH (48028)Indication: Dysuria On: 89-Vmn-994759:05 Request METABOLIC PANEL, COMPREHENSIVE (20087)Indication: Dysuria On: 63-Emu-278820:04 Request CBC WITH MANUAL DIFF (38486)Indication: Dysuria On: 20-Aua-930053:04 Request URINE GENESIS CULTURE-NITA COL COUNT (32076)Indication: Dysuria On: 26-Jgo-460039:45 Request URINE GENESIS CULTURE (NITA COL COUNT) (63465)Indication: Dysuria On: 12-Gdn-263951:17 Request METABOLIC PANEL, COMPREHENSIVE (91389)Indication: Fatty liver On: 05-Yid-60565:58 Request Magnesium (55367)Indication: Palpitations On: :51 Request TSH (68907)Indication: Palpitations On: 02-Wnp-27302:51 Request METABOLIC PANEL, COMPREHENSIVE (22866)Indication: Palpitations On: :51 Request CBC WITH MANUAL DIFF (25720)Indication: Palpitations On: 84-Iaq-13620:51 Request GGT (Gamma Glutamyl Transferase) (92019)Indication: Elevated LFTs On: 00-Oca-894498:16 Request HEPATIC FUNCTION PANEL (11722)Indication: Elevated LFTs On: 16-Qev-859307:16 Request VITAMIN B-12 (CYANOCOBALAMIN) (49802)Indication: Fatigue On: :23 Request MICROALBUMIN URINE QUANT (81478)Indication: Diabetes mellitus type II, controlled On: 77-Cfv-03678:22 Request TSH (47243)Indication: Fatigue On: 38-Jpz-86082:22 Request CBC WITH MANUAL DIFF (03503)Indication: Diabetes mellitus type II, controlled On: 91-Aiq-04194:22 Request METABOLIC PANEL, COMPREHENSIVE (93794)Indication: Diabetes mellitus type II, controlled On: 75-Whq-84730:22 Request LIPID PANEL (19957)Indication: Mixed hyperlipidemia On: 55-Fxq-44022:22 Request HEPATIC FUNCTION PANEL (76579)Indication: Mixed hyperlipidemia On: 13-Nge-555297:48 Request LIPID PANEL (12676)Indication: Mixed hyperlipidemia On: 63-Wfr-254000:48 Request Comments: in 3 mos Planned Encounters Medical; [facility] 1 Month FU - On: 30-Aug-2018 11:00 [facility] Fast DO, Sangeetha A Fast DO, Sangeetha A Planned Procedures Flu Vaccine (Quadrivalent) 48209Hw: On: 21-Jul-2018 Intent Fast DO, Sangeetha A Fast DO, Sangeetha A SCREENING DIGITAL TOMOSYNTHESIS OF On: 21-Jul-2018 Intent BREAST (56105)By: Fast DO, Sangeetha A Fast DO, Sangeetha A B 12 Injection, 1000 mcg (J3420)By: On: 31-May-2018 Intent Fast DO, Sangeetha A Fast DO, Sangeetha A Comments: [id number] [id number] given:left deltoid Given By: clarita albright ABN signed CT - Abdomen (IV Contrast Needed)By: On: 31-May-2018 Intent Fast DO, Sangeetha A Fast DO, Sangeetha A Doppler Ultrasound OtherBy: Fast DO, On: 19-May-2018 Intent Sangeetha A Fast DO, Sangeetha A Comments: left arm ULTRASOUND OF LIVER (41859)By: On: 24-Feb-2018 Intent Jennifer Rios MD PFT - CompleteBy: Fast DO, Sangeetha A On: 21-Oct-2017 Intent Fast DO, Sangeetha A Comments: at [facility] SCREENING DIGITAL TOMOSYNTHESIS OF On: 21-Oct-2017 Intent BREAST (80917)By: Fast DO, Sangeetha A Comments: end of oct Fast DO, Sangeetha A EsophagramBy: Fast DO, Sangeetha A Fast On: 21-Oct-2017 Intent DO, Sangeetha A Comments: with 12 mm tablet ELECTROCARDIOGRAM, COMPLETE (ECG) On: 21-Oct-2017 Intent (11147)By: Fast DO, Sangeetha A Fast DO, Sangeetha A Flu Vaccine (Quadrivalent) 20611Qh: On: 07-Jun-2017 Intent Fast DO, Sangeetha A [...] DO, Sangeetha A DEXA SCAN AXIAL SKELETON (38118)By: On: 16-Aug-2016 Intent Fast DO, Sangeetha A Fast DO, Sangeetha A MAMMOGRAM, SCREENING, BOTH BREAST On: 16-Aug-2016 Intent (42644)By: Fast DO, Sangeetha A Fast DO, Sangeetha A ELECTROCARDIOGRAM, COMPLETE (ECG) On: 16-Aug-2016 Intent (21949)By: Fast DO, Sangeetha A Fast DO, Sangeetha A Flu Vaccine (Quadrivalent) 24392Dr: On: 16-Aug-2016 Intent Fast DO, Sangeetha A Fast DO, Sangeetha A Comments: FLUlot: [id number]:02/09site:Lt deltoidroute:IMdose:.5mlHEIDI MCLEOD ADMINISTRATION OF INFLUENZA VIRUS On: 16-Aug-2016 Intent VACCINE (G0008)By: Fast DO, Sangeetha A Fast DO, Sangeetha A Ultrasound - ThyroidBy: Fast DO, On: 10-Nov-2015 Intent Sangeetha A Fast DO, Sangeetha A Ultrasound - LiverBy: Fast DO, Sangeetha On: 10-Nov-2015 Intent A Fast DO, Sangeetha A Flu Vaccine (Quadrivalent) 29207Nf: On: 08-Aug-2015 Intent Fast DO, Sangeetha A Fast DO, Sangeetha A Comments: Lot #[id number]-L dltd, IMDose prefilled syringegiven by:SIMONE Jasso and ABN signed MAMMOGRAM, SCREENING, BOTH BREAST On: 08-Aug-2015 Intent (43730)By: Fast DO, Sangeetha A Fast DO, Sangeetha A Ultrasound - ThyroidBy: Fast DO, On: 08-Aug-2015 Intent Sangeetha A Fast DO, Sangeetha A Ultrasound - LiverBy: Fast DO, Sangeetha On: 08-Aug-2015 Intent A Fast DO, Sangeetha A ADMINISTRATION OF PNEUMOCOCCAL On: 01-Nov-2014 Intent VACCINE (G0009)By: Fast DO, Sangeetha A Fast DO, Sangeetha A PNEUM VAC ADLT/IMUMNOSPR, SBC/INTRM On: 01-Nov-2014 Intent ([id number])By: Fast DO, Sangeetha A Fast DO, Comments: Lot:[id number]:02/29/16Dose:0.5mgRoute:imSite:l armGiven By:BATSHEVA signed Sangeetha A Ultrasound - LiverBy: Fast DO, Sangeetha On: 05-Jul-2014 Intent A Fast DO, Sangeetha A BILATERAL MAMMOGRAMS ([id number])By: Fast On: 05-Jul-2014 Intent DO, Sangeetha A Fast DO, Sangeetha A Ultrasound - ThyroidBy: Fast DO, On: 05-Jul-2014 Intent Sanegetha A Fast DO, Sangeetha A ADMINISTRATION OF INFLUENZA VIRUS On: 05-Jul-2014 Intent VACCINE ([id number])By: Fast DO, Sangeetha A Comments: Influenzalot:[id number]:03/25/2015dose:0.5mLRoute: IMlocation:R armgiven by:marika Fast DO, Sangeetha A FLU VAC, SPLIT, >3 YEARS, INTRAMUSC On: 05-Jul-2014 Intent ([id number])By: Arpan Irvin DOa A Fast DO, Sangeetha A INFUSION, NORMAL SALINE SOLUTION , On: 15-Apr-2014 Intent 250 CC ([id number])By: Angelina Winn CNP Rocephon Injection, 1 Gm ([id number])By: On: 15-Apr-2014 Intent Angelina Winn CNP Comments: Rocephin 1gmLot #[id number]. [id number] in R hand x 1 stick with [...] SPLIT, >3 YEARS, INTRAMUSC On: 27-Jul-2013 Intent ([id number])By: Tavon DAVIS, Sangeetha A Fast DO, Sangeetha A Eprescribed prescriptions ([id number])By: On: 04-Jun-2013 Intent Delisa Melendez LPN SPECIMEN HANDLING/TRANSPORT On: 04-Jun-2013 Intent ([id number])By: Delisa Melendez LPN INFUSION, NORMAL SALINE SOLUTION , On: 15-Feb-2013 Intent 1000 CC (Special Coverage Comments: 500 cc Instructions Apply. See MCM: 2049) ([id number])By: Jennifer Rios MD HYDRATION IV INFUSION, INIT On: 15-Feb-2013 Intent ([id number])By: Jennifer Rios MD Ultrasound - ThyroidBy: Fast DO, On: 19-Jan-2013 Intent Sangeetha A Fast DO, Sangeetha A MAMMOGRAM, SCREENING, BOTH BREASTS On: 19-Jan-2013 Intent ([id number])By: Fast DO, Sangeetha A Fast DO, Comments: due in january Sangeetha A Eprescribed prescriptions ([id number])By: On: 19-Jan-2013 Intent Isabella Grigsby Pulse Oximetry ([id number])By: Seb, On: 29-Sep-2012 Intent Isabella Comments: 98% [...] MAMMOGRAM, SCREENING, BOTH BREASTS On: 24-Jan-2012 Intent ([id number])By: Fast DO, Sangeetha A Fast DO, Sangeetha A TDAP VACCINE >7 IM ([id number])By: Fast On: 04-Oct-2011 Intent DO, Sangeetha A Fast DO, Sangeetha A Comments: Lot:[id number]:08/12/13Amt:prefilledRoute:IMSite:right deltGiven By: NATALEE Spence Aerosol Treatment ([id number])By: Blanca On: 26-Aug-2011 Intent Jennifer KING Pulse Oximetry ([id number])By: Blanca On: 26-Aug-2011 Intent Jennifer KING SPECIMEN HANDLING/TRANSPORT On: 23-Jul-2011 Intent ([id number])By: Delisa Melendez LPN VAC, SPLIT, >3 YEARS, INTRAMUSC On: 05-Jul-2011 Intent ([id number])By: Isabella Grigsby Comments: Lot #[id number]-9/20/12Site-left deltoidgiven by: Lisa Bello LPN Ultrasound - ThyroidBy: Fast DO, On: 05-Jul-2011 Intent Sangeetha A Fast DO, Sangeetha A MAMMOGRAM, SCREENING, BOTH BREASTS On: 05-Jul-2011 Intent ([id number])By: Fast DO, Sangeetha A Fast DO, Sangeetha A ADMINISTRATION OF INFLUENZA VIRUS On: 05-Jul-2011 Intent VACCINE ([id number])By: Isabella Grigsbycribed prescriptions ([id number])By: On: 04-Jun-2011 Intent [address]elli [address] DO CT - Brain/HeadBy: Fast DO, Sangeetha A On: 07-Oct-2010 Intent Fast DO, Sangeetha A Comments: with and without contrast MAMMOGRAM, SCREENING, BOTH BREASTS On: 26-Jun-2010 Intent ([id number])By: Fast DO, Sangeetha A Fast DO, Sangeetha A ADMINISTRATION OF INFLUENZA VIRUS On: 26-Jun-2010 Intent VACCINE ([id number])By: Fast DO, Sangeetha A Fast DO, Sangeetha A FLU VAC, SPLIT, >3 YEARS, INTRAMUSC On: 26-Jun-2010 Intent ([id number])By: Fast DO, Sangeetha A Fast DO, Comments: Lot:[id number]:12/2010Dose:0.5mlRoute:IMSite:Left DeltoidGiven by: HEIDI Alberto A Ultrasound - ThyroidBy: Fast DO, On: 07-Jan-2010 Intent Sangeetha A Fast DO, Sangeetha A CT - Spine/CervicalBy: Fast DO, On: 15-Dec-2009 Intent Sangeetha A Fast DO, Sangeetha A Comments: 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 -- need to rule out Pulse Oximetry ([id number])By: Fast DO, On: 09-Jul-2009 Intent Sangeetha A Fast DO, Sangeetha A Spirometry ([id number])By: Fast DO, On: 10-Jul-2009 Intent Sangeetha A Fast DO, Sangeetha A Comments: good effort and curve- mild restriciton Radiology - Chest- PA and LatBy: On: 09-Jul-2009 Intent Fast DO, Sangeetha A Fast DO, Sangeetha A Pulse Oximetry ([id number])By: Fast DO, On: 10-Jul-2009 Intent Sangeetha A Fast DO, Sangeetha A Comments: 98 FLU VAC, SPLIT, >3 YEARS, INTRAMUSC On: 09-Jul-2009 Intent ([id number])By: Isabella Grigsby Comments: Lot #[id number]/2010Site-right deltoidDose0.5mlgiven by Jvuentino Nye LPN IMMUNIZ ADMNIN, 1 VAC, SNGL/COMBO On: 09-Jul-2009 Intent ([id number])By: Isabella Grigsby EKG ([id number])By: Fast DO, Sangeetha A On: 10-Oct-2008 Intent [...] ADMNIN, 1 VAC, SNGL/COMBO On: 10-Jul-2008 Intent ([id number])By: Fast DO, Sangeetha A Fast DO, Sangeetha A FLU VAC, SPLIT, >3 YEARS, INTRAMUSC On: 10-Jul-2008 Intent ([id number])By: Fast DO, Sangeetha A Fast DO, Comments: injection given in left deltoid, pt tolerated welllot # [id number] Sangeetha A Holter Monitor 24 hrsBy: Fast DO, On: 10-Jul-2008 Intent Sangeetha A Fast DO, Sangeetha A EKG ([id number])By: Marlene Reddy On: 10-Jul-2008 Intent Comments: ekg [...] using tylenol and will go back to [place] if need be for shot-sugar fine-n foot [...] off metformin and lisinopril andthen went to [place] for couple weeks then had multiple falls sent back to hospital and transferred to [facility] there for few weeks then to [facility] had lots of pt- and doing better [...] Patient has been compliant with instructions. Current vt End: 01-Mar-2017 9:26 dication use: no side [...] anxiety and depression. Note for Physical exam: [facility] Wellness Physical- she is down 107 [...] from Need for immunizati on against influenza), [facility] WELLNESS, Encounter for screening mammogram for [...] Reason for hospitalization abdominal pain (Went to [facility] on 02/28/15). Hospitalization details include: abnormal [...] previously evaluated by a primary physician (at [facility]- Dr Reyes ). Presentation included lid [...] is helping her mood- has followup in [place] may 04 - her weight down 20 [...] sees heart failure doctor next week at [facility] - -- mood ebs and flows- [...] of all the problems -goes back to [facility] on tuesday and psych in 2 [...] or less). 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
--- OUTSIDE RECORDS SUMMARY | 2018-10-21 22:26 | XMS RPT_ITS | Continuity of Care Document ---
:1965 Author Organization [facility] Address [facility] [address] [place] [address] Phone Care Team Providers Name Role Phone [...] DO, Sangeetha A Start : 05-Jun-2018 Active Eliquis 5 MG Oral Tablet 1 (one) Tablet bid for 30 days Quantity: 60 {Tablet} Refills: 0 Ordered:14-Aug-2018 Fast DO, Sangeetha AFast DO, Sangeetha A Start : 14-Aug-2018 Active Gabapentin 100 MG Oral Capsule 1 [...] days Quantity: 90 {Tablet} Refills: 3 Ordered:29-Aug-2017 DO, Sangeetha AFast DO, Sangeetha A Start : 29-Aug-2017 Active LamoTRIgine 150 MG Oral Tablet 1 (one) Tablet qhs for 30 days Quantity: 30 {Tablet} Refills: 3 Ordered:07-Jun-2018 DO, Sangeetha AFast DO, Sangeetha A Start : 07-Jun-2018 Active Lasix 40 MG Oral Tablet 1 (one) Tablet daily as directed for 30 days Quantity: 30 {Tablet} Refills: 4 Ordered:19-May-2018 DO, Sangeetha AFast DO, Sangeetha A Start : 19-May-2018 Active MELATONIN, 3MG (Oral Capsule) 1 cap daily (3 MG) Active Mirtazapine 15 MG Oral Tablet 1/2 Tablet qhs for 0 days Quantity: 30 {Tablet} Refills: 0 Ordered:14-Aug-2018 Fast DO, Sangeetha AFast DO, Sangeetha A Start : 14-Aug-2018 Active Omeprazole 20 MG Oral Capsule Delayed [...] 30 days Quantity: 30 {Tablet} Refills: 3 Ordered:14-Aug-2018 DOArpana AFast DO, Sangeetha A Start : 14-Aug-2018 Active Synthroid 75 MCG Oral Tablet 1 (one) Tablet qd and 2 tabs on tuesday for 90 days Quantity: 102 {Tablet} Refills: 3 Ordered:21-Jul-2018 DOArpana AFast DO Sangeetha A Start : 21-Jul-2018 Active Vitamin D3 5000 UNIT Oral Capsule 1 (one) Capsule Capsule qod for 0 days Quantity: 30 {Capsule} Refills: 3 Ordered:01-Mar-2017 Arpana AFast DO Sangeetha A Start : 01-Mar-2017 Active Zofran 4 MG Oral Tablet 1 (one) Tablet Tablet every 8 hours prn nausea vomting for 0 days Quantity: 10 {Tablet} Refills: 0 Ordered:23-Feb-2018 Cipriano CROWENVinn L Start : 23-Feb-2018 Active AMITIZA, 24MCG (Oral Capsule) 1 Capsule Capsule bid for 0 days Quantity: 32 {Capsule} Refills: 0 Ordered:09-Feb-2016 Elodia Baxter Start : 27-Jul-2013 End : 09-Feb-2016 Inactive Amitriptyline HCl 10 MG Oral Tablet 1-2 Tablet qhs prn for 0 days Quantity: 60 {Tablet} Refills: 3 Ordered:19-May-2018 Long ESCROW OFFICER, Amelia L Start : 21-Oct-2017 End : 19-May-2018 Inactive Amoxicillin 875 MG Oral Tablet 1 (one) Tablet bid for 10 days Quantity: 20 {Tablet} Refills: 0 Ordered:21-Oct-2017 DOArpana AFast DO Sangeetha A Start : 21-Oct-2017 End : 31-Oct-2017 Inactive AVAPRO, 150MG (Oral Tablet) 1 qd for 0 days Refills: 0 Ordered:02-Dec-2006 DO, Sagneetha AFast DO, Sangeetha A End : 02-Dec-2006 Inactive AVAPRO, 300MG (Oral Tablet) 1 (one) Tablet Daily for 0 days Quantity: 30 {Tablet} Refills: 3 Ordered:06-Jun-2006 Fast DO, Sangeetha AFast DO, Sangeetha A [...] days Quantity: 20 {Tablet} Refills: 0 Ordered:16-Apr-2014 Angelina Winn CNP Start : 16-Apr-2014 End : 26-Apr-2014 Inactive CELEXA, 40MG (Oral Tablet) 1 Tablet qd for 30 days Quantity: 30 {Tablet} Refills: 0 Ordered:05-Jul-2011 Delisa Melendez LPN Start : 05-Jul-2011 End : 04-Aug-2011 Inactive Cipro 500 MG Oral Tablet 1 (one) Tablet bid for 7 days Quantity: 14 {Tablet} Refills: 0 Ordered:09-Jun-2018 DO, Sangeetha AFast DO, Sangeetha A Start : 09-Jun-2018 End : 16-Jun-2018 Inactive CIPRO, 250MG (Oral Tablet) 1 (one) Tablet bid for 3 days Quantity: 6 {Tablet} Refills: 0 Ordered:17-Dec-2008 Angelina Winn CNP Start : 17-Dec-2008 End : 23-Dec-2008 Inactive CIPROFLOXACIN HCL, 500MG (Oral Tablet) 1 Tablet bid for 0 days Quantity: 28 {Tablet} Refills: 0 Ordered:05-Jul-2011 Isabella Grigsby Start : 04-Jun-2011 End : 05-Jul-2011 Inactive ClonazePAM 1 MG Oral Tablet 1 tab Tablet q hs for 30 days Quantity: 30 {Tablet} Refills: 1 Ordered:19-May-2018 Cipriano ALBRIGHTVinginger Marquez Start : 25-Jan-2018 End : 19-May-2018 Inactive ERGOCALCIFEROL, 39830JWEA (Oral Capsule) 1 (one) Capsule Capsule twice [...] Quantity: 360 {Tablet} Refills: 3 Ordered:19-May-2018 Amelia Ctoa LPN Start : 18-Jan-2018 End : 19-May-2018 [...] days Quantity: 10 {Tablet} Refills: 0 Ordered:29-Sep-2012 Fast DO, Sangeetha AFast DO, Sangeetha A Start : 29-Sep-2012 End : 09-Oct-2012 Inactive LEXAPRO, 10MG (Oral Tablet) 1 qd for 0 days Refills: 0 Ordered:02-Dec-2006 Sangeetha Irvin DO, DO, Debra A End : 02-Dec-2006 Inactive Lisinopril 5 MG Oral Tablet 1/2 Tablet qd for 30 days Quantity: 15 {Tablet} Refills: 0 Ordered:19-May-2018 Amelia Cota LPN Start : 24-Apr-2013 End : 19-May-2018 Inactive [...] : 23-Jul-2011 End : 02-Aug-2011 Inactive MAXITROL, 3.5-57508-3.1 (Ophthalmic Ointment) apply to eye lids as directed q hs for 0 days Refills: 0 Ordered:26-Aug-2011 ALIS AllenAINE End : 26-Aug-2011 Inactive Methotrexate 2.5 MG [...] hs (50 MG) Inactive Comments:Dr. Hankins NYSTATIN, 805994WNQT/ML (Mouth/Throat Suspension) 5cc Suspension 5 times daily [...] days Quantity: 6 {Tablet} Refills: 0 Ordered:04-Jun-2013 Lillianeffie LEWISAngelina Start : 04-Jun-2013 End : 06-Jun-2013 Inactive SAVELLA, 25MG (Oral Tablet) 1 tab bid (25 MG) Inactive SEROQUEL XR, 200MG (Oral Tablet Extended Release 24 Hour) 1 tab Tablet ER 24HR q hs for 0 days Quantity: 30 {Tablet_ER_24HR} Refills: 1 Ordered:26-Aug-2011 ALVIN Allen Start : 22-Jan-2011 End : 26-Aug-2011 Inactive SEROQUEL XR, 200MG (Oral Tablet Extended Release 24 Hour) 1 Tablet ER 24HR qd for 30 days Refills: 0 Ordered:13-May-2010 Isabella Grigsby Start : 13-May-2010 End : 12-Jun-2010 Inactive Spironolactone 25 MG Oral Tablet 1/2 [...] days Quantity: 1 {Solution} Refills: 3 Ordered:26-Jun-2010 DO, Sangeetha AFast DO, Sangeetha A Start : 26-Jun-2010 End : 26-Jun-2010 Discontinued CELEXA, 20MG (Oral Tablet) 1 (one) Tablet qd for 0 days Quantity: 90 {Tablet} Refills: 3 Ordered:09-Sep-2008 Fast DO, Sangeehta AFast DO, Sangeetha A Start : 09-Sep-2008 [...] 0 days Quantity: 30 {Tablet_DR} Refills: 3 Ordered:30-Renato-2013 Sangeetha Irvin DO DO, Sangeetha A Start [...] Quantity: 30 {Tablet} Refills: 0 Ordered:19-May-2018 Long ESCROW OFFICER, Amelia L Start : 12-May-2012 End : 19-May-2018 Discontinued Comments:This order discontinued per [facility]. ZOFRAN ODT, 4MG (Oral Tablet Dispersible) qd prn nausea (4 MG) End : 08-Aug-2015 Discontinued Comments:[facility] Allergies and Adverse Reactions Name Dates Details aleve (Allergy) Status: Active Amitriptyline (Allergy) Status: Active Comments: nightmares FentaNYL *CHEMICALS* (Allergy) Status: Active Comments: local burning reaction Percocet *ANALGESICS - OPIOID* (Allergy) Status: Active Comments: nausea and vomiting Sulfa Drugs (Allergy) Status: Active Past Medical History Name Dates Details Abnormal lung function test (R94.2, 794.2) Status: Inactive as of 5-Sep-2018 Abnormal TSH (R79.89, 790.6) Status: Inactive as [...] Procedures Procedure Dates Details bilateral cataract surgery 1/17 Completed Cholecystectomy Completed Comments: 2014 D&C Completed Gallbladder Surgery - Laparoscopic Completed ICD- BIventricular Completed Date Value Details 14-Jul-2018 Chest PA and Lateral Result: Comments: See Note; NOTES: [facility] Imaging Services [address] [place] [address] Chest PA and Lateral MR#: [id number] Acct: [id number] Name: IFEOMA ASHRAF Rep #: [id number] : 1965 F 53 From: Dimitris Valderrama DO PCP: Sangeetha Irvin DO Status: REG CLI Study: Chest PA and Lateral Date of Exam: 07/14/18 Exam# [id number] Ordering Dr: Oscar Todd ROTOR WINDER-C STUDY: X-RAY CHEST REASON FOR EXAM: Female, [...] Dimitris Valderrama DO at 8:47 EDT Tel [phone], Service support , CC: NUNU Todd; Sangeetha Irvin DO Manager Imaging: Signed 10-Jun-2018 Pacemaker Check Result: Comments: See Note; NOTES: [facility] [address] [place] [address] Pacemaker Check Date of Service: 06/09/18 09 MR#: [id number] Acct: [id number] Name: IFEOMA ASHRAF Rep #: [id number] : 1965 From: Danica Pickering Age/Sex: 53/F Location: [facility] Status: Signed Billing Codes ICD Device Billing: ICD Dev Prog Eval, Single 06/09/18 09 <Elec tronically signed by Danica Pickering > Date Danica Pickering 06/10/18 1406<Electronically signed by Boone Ch MD> Cosigner Signat ure: Date (if applicable) Boone Ch MD CC: 08-Jun-2018 Cardiology Visit Report Result: Comments: See Note; NOTES: [facility] [address] [place] [address] OFFICE VISIT Date of Service: 05/31/18 MR#: [id number] Acct: [id number] Name: IFEOMA ASHRAF Rep #: [id number] : 1965 Provider: NUNU Todd Age/Sex: 53/F Location: [facility] Status: Signed with Addenda ADDENDUM by NUNU Todd on 06/01/18 at 0746 Addendum entered and electronic ally signed by LUPE Black 06/01/18 07:46: Patient's outside records from [facility] admission from 04/07/2018 to 04/27/2018 were [...] ultimately discharged home with requested follow-up with [place] [facility] or local neurolo gist in approximately [...] defibrillator (ICD) Z95.810 Generator change 11/13 @ [facility] LUPE Chapman Pacemaker check in February [...] prior to saving. 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 She was transferred to [facility] for further evaluation. These records are [...] 05/31/18 Pulse Rate 100 Intake Visit Reasons: [facility] to [facility] to [place] Allergies amitriptyline Adverse Reaction (Severe, Verified 05/31/18 [...] meq PO DAILY #30 tab 05/31/18 [Rx] [facility] Medical History Nonrheumatic mitral (valve) insufficiency (Chronic) [...] rter-defibrillator (ICD) Z95.810 Generator change 11/13 @ [facility] LUPE Chapman Pacemaker check in February [...] Anemia, unspecified type D64.9 Plan - LUPE lBack Her most recent hemoglobin on 05/25/18 was [...] prior to saving. Follow Up 6 Months (CUSTOMER SERVICE ADMINISTRATOR) 05/31/18 (GIUSEPPE) Coding Level of Care Code [...] 1556 <Electronically signed by Oscar ANDRADE> Date [facility] LUPE griffin Signature: Date (if applicable) CC: Sangeetha Irvin 05-Jun-2018 Oncology Visit Report Result: Comments: See Note; NOTES: 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 She had [...] stem cell transplant in February 2007 at [facility] with complete remission. She is on observation, [facility] in for follow up. - Past [...] Chronic Code Visit Office Visits / Consults: 56646 OV L3 Est 1325 <Electronically signed by Simeon Gresham MD> Date Simeon Pacheco Signature: Date (if applicable) CC: 26-May-2018 Venous Duplex Upper Extremity Result: Comments: See Note; NOTES: [facility] Cardiovascular Services [address] [place] [address] Venous Duplex US, Unilateral 05/25/18 0903 MR#: [id number] Acct: [id number] Name: IFEOMA SILVA Rep #: [id number] : 1965 53 From: Juanjo Russo MD [...] Dictated: 05/25/18 0903 Date Transcribed: 05/26/18 163 Manager Imaging: Signed 06-Apr-2018 Chest 1 View (Portable) Result: Comments: See Note; NOTES: [facility] Imaging Services [address] [place] [address] Chest 1 View (Portable) MR#: [id number] Acct: [id number] Name: MARIOWAQASIFEOMA Pulido Rep #: : 1965 F 53 From: Levy Lucas DO PCP: Sangeetha Irvin DO Status: PRE ER Study: Chest 1 View (Portable) Date of Exam: 04/06/18 Exam# [id number] Ordering Dr: Dejuan Bacon MD STUDY: X-RAY [...] , CC: Sangeetha Irvin DO; Dejuan Bacon Manager Imaging: Signed 05-Apr-2018 Brain/Head without Contrast Result: Comments: See Note; NOTES: [facility] Imaging Services [address] [place] [address] Brain/Head without Contrast MR#: [id number] Acct: [id number] Name: IFEOMA ASHRAF Rep # : [id number] : 1965 F 53 From: Levy Lucas DO PCP: Sangeetha Irvin DO Status: REG CLI Study: Brain/Head without Contrast Date of Exam: 04/05/18 Exam# [id number] Ordering Dr: Oscar Bartlett MD STUDY : [...] 14:06 EDT Tel , Service support 1- [phone], N.B. : The above information has been verbally conveyed by Levy Lucas DO to connected , Covering Physician, on 04/05/2018 14:06:03 (ET). CC: Sangeetha Irvin DO; Oscar Bartlett MD Manager Imaging: Signed 05-Apr-2018 Brain/Head without Contrast Result: Comments: See Note; NOTES: [facility] Imaging Services [address] [place] [address] Brain/Head without Contrast MR#: [id number] Acct: [id number] Name: IFEOMA ASHRAF Rep # : [id number] : 1965 F 53 From: Levy Lucas DO PCP: Sangeetha Irvin DO Status: REG CLI Study: Brain/Head without Contrast Date of Exam: 04/05/18 Exam# [id number] Ordering Dr: Oscar Bartlett MD STUDY : [...] 14:06 EDT Tel , Service support 1- [phone], N.B. : The above information has been verbally conveyed by Levy Lucas DO to connected , Covering Physician, on 04/05/2018 14:06:03 (ET). CC: Sangeetha Irvin DO; Oscar Bartlett MD Manager Imaging: Signed 31-Mar-2018 Cardiology Visit Report Result: Comments: See Note; NOTES: [facility] [place] [address] OFFICE VISIT Date of Service: 03/31/18 MR#: [id number] Acct: [id number] Name: MariowaqasIfeoma Rep #: [id number] : 1965 Provider: Boone Ch MD Age/Sex: 53/F Location: [facility] Status: Signed HPI HPI Chief Complaint: [...] care unit. She was eventually transferred to [facility]. 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 I would like to obtain a chemistry research assistant ry profile to be able to appropriately adjust any diuretics. At this juncture it may be prudent to add Lasix 40 mg a day to her current regimen. 2. Presence of implantable cardioverter-defibrillator (I CD) Z95.810 Generator change 11/13 @ [facility] Dr. Ahmadi Plan She does have [...] months. 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) Coding Level of Care Code Off vis,est,level [...] <Electronically signed by Boone Vega> Date Boone Ch MD Cosigner Signature: Date (if applicable) CC: Sangeetha Irvin DO -Oct-2017 TXT - Blood Flow Screening Result: Comments: See Note; NOTES: [facility] Cardiovascular Services [address] [place] [address] 11/22/17 0803 MR#: [id number] Acct: [id number] Name: IFEOMA ASHRAF Rep #: [id number] [...] Dictated: 11/22/17 0803 Date Transcribed: 11/22/17 1518 Manager Imaging: Signed 18-Nov-2017 Office Visit Report Result: Comments: See Note; NOTES: [facility] [address] [place], [place] [address]ju[place] [address] OFFICE VISIT Date of Service: 11/17/17 MR#: [id number] Acct: [id number] Patient: IFEOMA ASHRAF Rep #: [id number] : 1965 Provider: Danica Pickering Age/Sex: 52/F Location: [facility] Status: Signed Comments Summary Comments: Wound [...] n office Interview Reason: scheduled follow up Incinerator Attendant: [employer] Name: Lan PRO Model: [id number] Serial #: [id number] Implant Date: 11/10/17 Year(s): 0 Implant Physician: [...] and No drainage Bibiana ds Lead #1 Incinerator Attendant Lead 1: [employer] Model Lead 1: 7121Q/58 Serial# Lead 1: [id number] Date Implanted Lead 1: 10/10/09 Position Lead [...] in other diseases classified elsewhere I43 11/17/17 7370 <Electronically signed by Danica Pickering > Date Danica Pickering 11/18/17 0813<Electronically signed by Noe Morris MD> Cosigner Signature: Date (if applicable) Noe Morris MD CC: 10-Nov-2017 Operative Report Result: Comments: See Note; NOTES: [facility] Medical Records Department [address] [place] [address] Operative Report 11/10/17 1148 MR#: [id number] Acct: [id number] Name: SALOME ASHRAF Rep #: [id number] : 1965 52 From: Lior Ahmadi MD PCP: Sangeetha Irvin DO Status: REG DEC Y Location: [facility] Operative Report Date of Procedure: 11/10/17 Preoperative diagnosis is device at end of life for normal battery depletion. Postoperative diagnosis same as above. After informed consent and IV antibiotics the patient was brought to the [facility] and the ski n over [...] chart documents provided by the device company payable representative procedure summary. 11/10/17 1150 <Electronically signed by Lior Ahmadi MD > Date Lior Ahmadi MD CC: Sangeetha Irvin DO; Lior Ahmadi MD Signed 03-Nov-2017 Office Visit Report Result: Comments: See Note; NOTES: [facility] [address] [place] [address] OFFICE VISIT Date of Service: 11/03/17 MR#: [id number] Acct: [id number] Patient: IFEOMA ASHRAF Rep #: [id number] : 1965 Provider: Danica Pickering Age/Sex: 52/F Location: [facility] Status: Signed Comments Summary Comments: Written [...] in office Interview Reason: routine follow up Incinerator Attendant: 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 Model Lead 1: 7121Q/58 Serial# Lead 1: [id number] Date Implanted Lead 1: 10/10/09 Position Lead [...] 11/03/17 1648<Electronically signed by Boone Ch MD> [facility] Signature: Date (if applicable) Boone Ch MD CC: 03-Nov-2017 Cardiology Visit Report Result: Comments: See Note; NOTES: [facility] [place] [address] OFFICE VISIT Date of Service: 11/03/17 MR#: [id number] Acct: [id number] Name: IFEOMA ASHRAF Rep #: [id number] : 1965 Provider: Boone Ch MD Age/Sex: 52/F Location: [facility] Status: Signed HPI HPI Details: IFEOMA ASHRAF, [...] 25 to 29 (25% per echo 03/11/2015) [facility] Medical History Type 2 diabetes mellitus without [...] of automatic cardioverter/defibrillator (AICD) Z95.810 10/06/2009 @ [facility] Plan She is status post ICD [...] was also being followed up at the [facility]. She is also on spironolactone and [...] and Lateral Result: Comments: See Note; NOTES: [facility] Imaging Services [address] [place] [address] Chest PA and Lateral MR#: [id number] Acct: [id number] Name: IFEOMA ASHRAF Rep #: [id number] : 1965 F 52 From: Dimitris Valderrama DO PCP: Sangeetha Irvin DO Status: PRE [facility] Study: Chest PA and Lateral Date of Exam: 11/03/17 Exam# [id number] Ordering Dr: Boone Ch MD STUDY: X-RAY [...] Dimitris Valderrama DO at 18:21 EST Tel [phone], Se rvice support , CC: Boone Ch MD; Sangeetha Irvin DO Manager Imaging: Signed 14-Oct-2017 Office Visit Report Result: Comments: See Note; NOTES: [facility] [address] [place] [address]. [place] [address] OFFICE VISIT Date of Service: 10/12/17 MR#: [id number] Acct: [id number] Patient: IFEOMA ASHRAF Rep #: [id number] : 1965 Provider: Danica Pickering Age/Sex: 52/F Location: [facility] Status: Signed Comments Summary Comments: Single Chamber ICD Evaluation: Interrogation shows No VT/VF episodes since . No Alerts noted. Left pectoral pocket/incision w/o s/s of infection or erosion. Pt offers no cardiac complaints. Presenting rhythm shows Sinus Tachycardia @ 105 bpm. Left pectoral pocket/incision w/o s/s of infection or erosion. ENROLLMENT CONSULTANT=0%. Battery longevity approx 2.9 mos. At device check in June device showed longevity of 14 mos. D/T longevity decreasing quickly pt scheduled for ICD generator el gilliam with Dr. Ahmadi on 11/10/17 @ [facility]. Lead impedances, sensing and pace/sense threshold remain stable. No parameter changes made. Counters cleared. Pt scheduled for o.v and teaching on 11/03/17 and ICD g enerator change on 11/10/17. Device Device Date Interviewed: 10/12/17 Follow- up Location: in office Interview Reason: routine follow up Incinerator Attendant: 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 Model Lead 1: 7121Q/58 Serial# Lead 1: [id number] Date Implanted Lead 1: 10/10/09 Position Lead [...] Pickering 10/14/17 1230<Electronically signed by Sharyn KNOX> Junior Signature: Date (if applicable) Sharyn Turner CC: 15-Jun-2017 Abdomen WITH IV Contrast Result: Comments: See Note; NOTES: [facility] Imaging Services [address] [place] [address] Abdomen WITH IV Contrast MR#: [id number] Acct: [id number] Name: IFEOMA ASHRAF Rep #: [id number] : 1965 F 52 From: Carl Vincent MD PCP: Sangeetha Irvin DO Status: REG CLI Study: Abdomen WITH IV Contrast Date of Exam: 06/15/17 Exam# [id number] Ordering Dr: Analisa Conway MD STUDY: CT [...] CC: Analisa Conway MD; Sangeetha Irvin DO Manager Imaging: Signed 15-Jun-2017 Spine Cervical without Contras Result: Comments: See Note; NOTES: [facility] Imaging Services [address] [place] [address] Spine Cervical without Contras MR#: [id number] Acct: [id number] Name: IFEOMA ASHRAF p #: [id number] : 1965 F 52 From: Zev Mandujano MD PCP: Sangeetha Irvin DO Status: REG CLI Study: Spine Cervical without Contras Date of Exam: 06/15/17 Exam# [id number] Ordering Dr: Analisa Conway MD STUDY: CT [...] techniques were used for this CT. [facility]: 02/11/2015. FINDINGS: Normal craniovertebral junction. Normal anterior [...] CC: Analisa Conway MD; Sangeetha Irvin DO Manager Imaging: Signed 10-Feb-2017 Spine Lumbar without Contrast Result: Comments: See Note; NOTES: [facility] Imaging Services [address] [place] [address] [address] 4d Spine Lumbar without Contrast MR#: [id number] Acct: [id number] Name: MARISEL ASHRAF DENISHA Pulido Rep #: [id number] : 1965 F 51 From: Brian Gill MD PCP: Sangeetha Irvin DO Status: REG CLI Study: Spine Lumbar without Contrast Date of Exam: 02/10/17 Exam# [id number] Ordering Dr: Analisa Carr i, MD STUDY: [...] CC: Analisa Conway MD; Sangeetha Irvin DO Manager Imaging: Signed 20-Jan-2017 Liver Result: Comments: See Note; NOTES: [facility] Imaging Services [address] [place] [address] Zach 4d Liver MR#: [id number] Acct: [id number] Name: IFEOMA ASHRAF Rep #: [id number] : 1965 F 51 From: Vincent Bui DO PCP: Sangeetha Irvin DO Status: REG CLI Study: Liver Date of Exam: 01/20/17 Exam# [id number] Ordering Dr: Sangeetha Irvin DO STUDY: ABDOMINAL [...] Vincent Bui DO at 23:43 EDT Tel [phone], Service support , CC: Sangeetha Irvin DO Manager Imaging: Signed 20-Jan-2017 Thyroid Result: Comments: See Note; NOTES: [facility] Imaging Services [address] [place] [address] Verdana 4d Thyroid MR#: [id number] Acct: [id number] Name: IFEOMA ASHRAF Rep #: [id number] : 1965 F 51 From: Jin Rolon PCP: Sangeetha Irvin DO Status: REG CLI Study: Thyroid Date of Exam: 01/20/17 Exam# [id number] Ordering Dr: Sangeetha Irvin DO STUDY: THYROID [...] Service support , CC: Sangeetha Irvin DO Manager Imaging: Signed 17-Nov-2016 Dexa Bone Density Study (HP) Result: Comments: See Note; NOTES: [facility] Imaging Services [address] [place] [address] Luldagui 4d Dexa Bone Density Study (HP) MR#: [id number] Acct: [id number] Name: COL HARPAL ASHRAF Rep #: [id number] : 1965 F 51 From: Prashant Delgadillo MD PCP: Sangeetha Irvin DO Status: REG CLI Study: Dexa Bone Density Study (HP) Date of Exam: 11/17/16 Exam# [id number] Ordering Dr: Sangeetha Irvin DO STUDY: DUAL [...] Prashant Delgadillo MD at 10:52 EST Tel [phone], Service support [phone], CC: Sangeetha Irvin DO Manager Imaging: Signed 17-Nov-2016 SCREENING MAMM (CAD), BILAT Result: Comments: See Note; NOTES: [facility] Imaging Services [address] [place] [address] Verdana 4d SCREENING MAMM (CAD), BILAT MR#: [id number] Acct: [id number] Name: SALOME ASHRAF Rep #: [id number] : 1965 F 51 From: Prashant Delgadillo MD PCP: Sangeetha Irvin DO Status: [facility] CLI Study: SCREENING MAMM (CAD), BILAT Date of Exam: 11/17/16 Exam# [id number] Ordering Dr: Gary Irvin DO MAMMOGRAPHY - [...] biopsy of a clinically suspiciou s abnormality. [id number] Electronically Signed: Prashant Delgadillo MD at 12:55 EST Tel [phone], Service support [phone], CC: Sangeetha Irvin DO Manager Imaging: Signed 17-Nov-2016 SCREENING MAMM (CAD), BILAT Result: Comments: See Note; NOTES: [facility] Imaging Services [address] [place] [address] Verdana 4d SCREENING MAMM (CAD), BILAT MR#: [id number] Acct: [id number] Name: SALOME ASHRAF Rep #: [id number] : 1965 F 51 From: Prashant Delgadillo MD PCP: Sangeetha Irvin DO Status: REG CLI Study: SCREENING MAMM (CAD), BILAT Date of Exam: 11/17/16 Exam# [id number] Ordering Dr: Gary Irvin DO ADDENDUM by [...] delay biopsy of a clinically suspicious abnormality. [id number] Electronically Signed: Prashant Delgadillo MD at 13:07 EST Tel [phone], Service support [phone], 11/17/16 1310 Date cc: Sangeetha Irvin DO * Signed [...] was performed. COMPARISON: [facility], 2015 and [...] delay biopsy of a clinically suspicious abnormality. [id number] Electronically Signed: Prashant Delgadillo MD at 12:55 EST Tel [phone], Ser vice support [phone], CC: Sangeetha Irvin DO Manager Imaging: Signed 19-Dec-2015 Liver Result: Comments: See Note; NOTES: [facility] Imaging Services [address] [place] [address] Verdana 4d Liver MR#: [id number] Acct: [id number] Name: IFEOMA ASHRAF Rep #: [id number] : 1965 F 50 From: Ziggy Santos MD PCP: Sangeetha Irvin DO Status: REG CLI Study: Liver Date of Exam: 12/19/15 Exam# [id number] Ordering Dr: Sangeetha Irvin DO STUDY: ABDOMINAL [...] at 10:55 EDT Tel , Service support [phone], CC: Sangeetha Irvin DO Manager Imaging: Signed 19-Dec-2015 Thyroid Result: Comments: See Note; NOTES: [facility] Imaging Services [address] [place] [address] Verdana 4d Thyroid MR#: [id number] Acct: [id number] Name: IFEOMA ASHRAF Lois ep #: [id number] : 1965 F 50 From: Ziggy Santos MD PCP: Sangeetha Irvin DO Status: REG CLI Study: Thyroid Date of Exam: 12/19/15 Exam# [id number] Ordering Dr: Sangeetha Irvin DO STUDY: THYROID [...] Service support , CC: Sangeetha Irvin DO Manager Imaging: Signed 14-Aug-2015 Bilat Scrn Digital AND CAD Result: Comments: See Note; NOTES: [facility] Imaging Services [address] [place] [address] Verdana 4d Bilat Scrn Digital AND CAD MR#: [id number] Acct: [id number] Name: IFEOMA ASHRAF Rep #: [id number] : 1965 F 50 From: Prashant Delgadillo MD PCP: Sangeetha Irvin DO Status: REG CLI Study: Bilat Scrn Digital AND CAD Date of Exam: 08/14/15 Exam# [id number] Order ing Dr: Sangeetha Irvin DO MAMMOGRAPHY [...] Prashant Delgadillo MD at 10:49 EST Tel [phone], Service support [phone], CC: Sangeetha Irvin DO Manager Imaging: Signed 10-Mar-2015 Emergency Department Summary Result: Comments: See Note; NOTES: [facility] Medical Records Department [address] [place] [address] Emergency Department Summary MR#: [id number] Acct: [id number] Name: IFEOMA RASMUSSEN Rep #: [id number] : 1965 49 From: Mayito Roldan DO [...] way. Mayito Roldan DO T: NTS JOB: [id number] 03/10/15 2329 <Electronically signed by Mayito Fanniecarmelo DAVIS> Date Mayito Grecocarmelo DAVIS CC: Sangeetha Irvin DO Date Dictated: 02/28/15824 Date Transcribed: 02/28/15824 Manager Imaging: Signed 02-Mar-2015 Emergency Department Summary Result: Comments: See Note; NOTES: [facility] Medical Records Department [address] [place] [address] Emergency Department Summary MR#: [id number] Acct: [id number] Name: IFEOMA RASMUSSEN Rep #: [id number] : 1965 49 From: Alejandro Lopez DO [...] The patient has plans to go to [facility] on [facility]. I will give her local surgeon's name if she wants to speak with them or she can certainly also speak with Dr. Irvin. CLINICAL IMPRESSION: Biliary colic. Alejandro Lopez DO T: NTS JOB: [id number] 03/02/1543 <Electronically signed by Alejandro Lopez DO> Date Alejandro Lopez DO CC: Sangeetha Irvin DO Date Dictated: 718 Date Transcribed: 02/28/15718 Manager Imaging: Signed 28-Feb-2015 Discharge Instruction Result: Comments: See Note; NOTES: [facility] Medical Records Department [address] [place] [address] Discharge Instruction 02/28/15638 MR#: [id number] Acct: [id number] Name: IFEOMA ASHRAF Rep #: [id number] : 1965 49 From: Alejandro Lopez DO [...] problems, contact your doctor. Call [facility] ([phone]) or report to the closest ergency Room. Call 911 if necessary. 02/28/15639 <Electronically signed by Alejandro Lopez DO> Date Alejandro Lopez DO Cosign er Signature (If Indicated): Date CC: Sangeethasangita Irvin 28-Feb-2015 Gallbladder Result: Comments: See Note; NOTES: [facility] Imaging Services [address] [place] [address] Ultrasound Report MR#: [id number] Acct: [id number] Name: IFEOMA ASHRAF Rep #: [id number] : 1965 F 49 From: Prashant Delgadillo MD PCP: Sangeetha Irvin DO Status: REG ER Study: Gallbladder Date of Exam: 02/28/15 Exam# [id number] Ordering Dr: Alejandro Lopez DO STUDY: ABDOM [...] Prashant Delgadillo MD at 8:15 EDT Tel [phone], Service support [phone], CC: Alejandro Lopez DO; Sangeetha Irvin DO Manager Imaging: Signed 11-Feb-2015 Spine Cervical without Contras Result: Comments: See Note; NOTES: [facility] Imaging Services [address] [place] [address] [place] [address] CAT Scan Report MR#: [id number] Acct: [id number] Name: IFEOMA ASHRAF Rep #: [id number] : 1965 F 49 From: Prashant Delgadillo MD PCP: Sangeetha Irvin DO Status: REG CLI Study: Spine Cervical without Contras Date of Exam: 02/11/15 Exam# [id number] Ordering Dr: Analisa Conway MD STUDY: CT [...] Prashant Delgadillo MD at 9:49 EDT Tel [phone], Service support [phone], CC: Analisa Conway MD; Sagneetha Irvin DO Manager Imaging: Signed 18-Jul-2014 Bilat Scrn Digital & CAD Result: Comments: See Note; NOTES: [facility] Imaging Services [address] [place] [address] Breast Imaging Report MR#: [id number] Acct: [id number] Name: IFEOMA ASHRAF Rep # : [id number] : 1965 F 49 From: Prashant Delgadillo MD PCP: Sangeetha Irvin DO Status: REG CLI Exam# [id number] Ordering Dr: Sangeetha Irvin DO MAMMOGRAPHY - [...] Prashant Delgadillo MD at 8:36 EDT Tel [phone], [employer] support [phone], CC: Sangeetha Irvin DO Manager Imaging: Signed 18-Jul-2014 Liver Result: Comments: See Note; NOTES: [facility] Imaging Services [address] [place] [address] Ultrasound Report MR#: [id number] Acct: [id number] Name: IFEOMA ASHRAF Rep #: [id number] : 1965 F 49 From: Prashant Delgadillo MD PCP: Sangeetha Irvin DO Status: REG CLI Study: Liver Date of Exam: 07/18/14 Exam# [id number] Ordering Dr: Sangeetha Irvin DO STUDY: ABDOMINAL [...] Prashant Delgadillo MD at 9:34 EDT Tel [phone], Service support [phone], CC: Sangeetha Irvin DO Manager Imaging: Signed 18-Jul-2014 Thyroid Result: Comments: See Note; NOTES: [facility] Imaging Services [address] [place] [address] Ultrasound Report MR#: [id number] Acct: [id number] Name: IFEOMA ASHRAF Rep #: [id number] : 1965 F 49 From: Prashant Delgadillo MD PCP: Sangeetha Irvin DO Status: REG CLI Study: Thyroid Date of Exam: 07/18/14 Exam# [id number] Ordering Dr: Sangeetha Irvin DO STUDY: THYROID [...] Delgadillo MD at 8:41 EDT T el [phone], Service support [phone], CC: Sangeetha Irvin DO Manager Imaging: Signed 05-Feb-2014 Brain/Head W/WO Contrast Result: Comments: See Note; NOTES: [facility] Imaging Services [address] [place], [place] [address] CAT Scan Report MR#: [id number] Acct: [id number] Name: IFEOMA ASHRAF Rep #: [id number] : 1965 F 48 From: Prashant Delgadillo MD PCP: Sangeetha Irvin DO Status: REG CLI Study: Brain/Head W/WO Contrast Date of Exam: 02/05/14 Exam# [id number] Ordering Dr: Sangeetha Irvin DO STUD Y: CT BRAIN WITH AND [...] Prashant Delgadillo MD at 9:19 EDT Tel [phone], Service support [phone], CC: Sangeetha Irvin DO Manager Imaging: Signed Immunization Name Dates Details Influenza (3 years and up) on: 10-Jul-2008 Comments: injection given in left deltoid, pt tolerated welllot # [id number] Influenza (3 years and up) on: 09-Jul-2009 Comments: Lot #[id number]-right deltoidDose0.5mlgiven by Juventino Nye LPN Family History [...] kg/m2 Body Surface Area Calculated 2.02 m2 :59 Temperature 97.9 f Comments: Method: Temporal Pulse [...] 0.00 cm Results Date Description Value Details :06 Basic Metabolic Profile (BMP) Comments: PLEASE FAX TO DR. CANTU [phone] [address] [place], [address] GAP 12 (Normal) Range: 5-15 CO2 26.0 mmol/L (Normal) Range: 21.0-32.0 CL 100 mmol/L (Normal) Range: 98-107 K 3.2 mmol/L (Abnormal) Range: 3.5-5.1 NA 138 mmol/L (Normal) Range: 136-145 CA 8.8 mg/dL (Normal) Range: 8.5-10.1 BUN/CRE 12.5 {RATIO} (Normal) Range: 10-20 EST GFR - AA 86 mL/min (Normal) Comments: GFR Calc EST GFR 71 mL/min (Normal) Comments: Non- GFR Calc CREAT,SERUM 0.88 mg/dL (Normal) Range: 0.55-1.02 Comments: The validity of the calculated GFR AND GFRAA in patients over70 years has not been determined. Clinical correlation isessential. BUN 11 mg/dL (Normal) Range: 7-18 GLU 411 mg/dL (Abnormal) Range: 74-106 Comments: Glucose result greater than or equal to 200 mg/dLsuggests DIABETES MELLITUS per A.D.A. criteria.Please note revised GLUCOSE reference range endypasao39/02/2018. 85-Siy-26969:22 CBC W/Diff, Automated Comments: BMP TO DULCE TIMMONS.CBCD, TSH, B12 TO DR. SANGEETHA IRVIN.[facility] [address] [place], [address] Absolute Lymph 1.16 {X10_3/ul} (Normal) Range: 0.83-4.51 [...] 4.2-5.4 WBC 8.0 K/mm3 (Normal) Range: 4.4-11.0 :22 Vitamin B12 659 pg/mL (Normal) Comments: BMP TO [facility].CBCD, TSH, B12 TO DR. SANGEETHA IRVIN.[facility] [address] [place], [place], [address] Range: 211-911 96-Lrz-35964:20 Basic Metabolic Profile (BMP) Comments: BMP TO [facility].CBCD, TSH, B12 TO DR. SANGEETHA IRVIN.[facility] [address] [place], [place], [address] GAP 9 (Normal) Range: 5-15 CO2 27.0 [...] criteria.Please note revised GLUCOSE reference range /02/2018. 58-Emg-41026:20 Thyroid Stim Hormone (TSH) Comments: BMP TO DULCE TIMMONS.CBCD, TSH, B12 TO DR. SANGEETHA IRVIN.[facility] [address] [place], [place], [address] TSH 4.09 {uIU/mL} (Abnormal) Range: 0.358-3.74 94-Gfy-644144:23 Basic Metabolic Profile (BMP) Comments: [facility] [address] [place], [place], [address] GAP 7 (Normal) Range: 5-15 CO2 30.0 [...] A.D.A. criteria.Please note revised GLUCOSE reference range ytcumzfbc77/02/2018. 71-Zyt-591498:23 BNP,B-Type NATRIURETIC PEPTIDE Comments: [facility] [address] [place], [place], [address] B-TYPE JACKIE PEP 892.7 pg/mL (Abnormal) Range: 0-100 46-Beg-301634:23 CBC W/Diff, Automated Comments: [facility] [address] [place], [place], [address] Absolute Lymph 1.23 {X10_3/ul} (Normal) Range: 0.83-4.51 [...] 4.2-5.4 WBC 7.2 K/mm3 (Normal) Range: 4.4-11.0 11-Enl-155550:41 CBC W/Diff, Automated Comments: Reason for Laboratory Test .[facility] [address] [place], [place], [address] Absolute Lymph 0.85 {X10_3/ul} (Normal) Range: 0.83-4.51 [...] 4.2-5.4 WBC 5.7 K/mm3 (Normal) Range: 4.4-11.0 22-Vrq-436219:41 Comprehensive Metabolic Profil Comments: Reason for Laboratory Test .Serial Specimen #1, #2 or #3? [facility] [address] [place], [place], [address] GAP 8 (Normal) Range: 5-15 CO2 28.0 [...] A.D.A. criteria.Please note revised GLUCOSE reference range lclzezngo27/02/2018. 84-Uos-990009:41 LDH 224 U/L (Normal) Comments: Reason for Laboratory Test .Serial Specimen #1, #2 or #3? [facility] [address] [place], [address] Range: 84-246 6-Rrd-950118:41 URINE GENESIS CULTURE-IDENTIFICATN Comments: add to urine in lab; PATIENT NOT FASTINGPERFORMED BY: [facility] Mrgfqx9589 [facility] [id number] Information: SRC:JUAN ([id number]) Result 1 ENTEAE (Abnormal) Comments: Enterobacter aerogenes1,000 [...] S Urine Final report Culture,Comprehensi (Abnormal) ve 06-Jxa-90756:46 AFP, Tumor Marker Comments: Is Patient ? [facility] (refer to report for specific site)refer to report for address and phone number AFP TUMOR 2253 10.0 ng/mL (Abnormal) Range: 0.0-8.3 Comments: [employer] ECLIA methodologyPerformed at: [facility] [address] [id number] Director: Omar Hood PhD, Phone: [phone] :46 CBC W/Diff, Automated Comments: [facility] [address] [place], [place], [address] Absolute Lymph 0.95 {X10_3/ul} (Normal) Range: 0.83-4.51 [...] 4.2-5.4 WBC 5.6 K/mm3 (Normal) Range: 4.4-11.0 75-Txy-66735:46 Comprehensive Metabolic Profil Comments: PLEASE ADD T3F T4F TO BLOOD FROM 05-25-[address] [place], [place], [address] GAP 9 (Normal) Range: 5-15 CO2 28.0 [...] A.D.A. criteria.Please note revised GLUCOSE reference range iunwdkwwd24/02/2018. :46 Digoxin Level Comments: [facility] [address] [place], [address] DIG 0.71 ng/mL (Abnormal) Range: 0.80-2.00 :46 Free T3 Comments: PLEASE ADD T3F T4F TO BLOOD FROM 05-25-18G2 [address] [place] [address] [address] [facility] [place], [place], [address] FREE T3 3.2 pg/mL (Normal) Range: 2.18-3.98 :46 Hemoglobin A1c Comments: [facility] [address] [facility] [place], [place], [address] HGB A1C 5.4 % (Normal) Range: 4.2-6.3 :46 Lipid Profile Comments: PLEASE ADD T3F T4F TO BLOOD FROM 05-25-18G2 [address] [place] [address] Wh[address]bp[address] [facility] [place], [place], [address] VLDL 22 mg/dL (Normal) Range: 5-40 LDL [...] Microalb:Creat Ratio,Random UR Comments: [facility] [address] [place], [address] MALB:CREAT 7.8 {mg/g_CRE} (Normal) MICROALBUMIN,UR 10.9 mg/L (Normal) UR CREAT 139.00 mg/dL (Normal) :46 T4 Free Direct Comments: PLEASE ADD T3F T4F TO BLOOD FROM 05-25-[address] [place], [address] T4 FREE DIRECT 1.11 ng/dL (Normal) Range: 0.76-1.46 :46 Thyroid Stim Hormone (TSH) Comments: PLEASE ADD T3F T4F TO BLOOD FROM 05-25-[address] [place], [address] TSH 0.31 {uIU/mL} (Abnormal) Range: 0.358-3.74 :46 Urinalysis, Complete Comments: How was Urine Obtained? CLEAN [facility] [address] [place], [address] MUCUS, URINE 0 SEEN {/hpf} (Normal) [...] 368 pg/mL (Normal) Comments: [facility] [address] [place], [address] Range: 211-911 :46 Vitamin D,25 Hydroxy Comments: [facility] [address] [place], [address] Vitamin D 25-OH 64.5 ng/mL (Normal) Range: 29.95-100.01 Comments: Vitamin D 25(OH) Status Range Deficiency <20 ng/mL (50nmol/L) Insuffciency 20 - 30 ng/mL (50 - 75 nmol/L) Sufficiency 30 - 100 ng/mL (75 - 250 nmol/L) Toxicity >100 ng/mL (>250 nmol/L) 34-Cav-080289:52 Urinalysis, Complete Comments: Order Date: 04/06/18Has pt arrived? YHow was Urine Obtained? [facility] [address] [place], [id number] HYALINE CAST 5-10 SEEN {/lpf} (Normal) Range: [...] (Normal) CLARITY Cloudy (Normal) COLOR Yellow (Normal) 06-Byh-254390:30 CBC W/Diff, Automated Comments: [facility] [address] [place], [address] OVALOCYTE RARE (Normal) MACROCYTE 1+ (Normal) ANISO [...] 4.2-5.4 WBC 9.1 K/mm3 (Normal) Range: 4.4-11.0 75-Jci-118011:30 Comprehensive Metabolic Profil Comments: [facility] [address] [place], [place], [address] GAP 12 (Normal) Range: 5-15 CO2 30.0 [...] Please note revised GLUCOSE reference range /02/2018. 75-Ndy-194850:30 Lactic Acid Comments: Yes/No query for Sepsis Lactate Rule [facility] [address], [id number] LACTIC ACID 6.7 mmol/L (Abnormal) Range: 0.4-2.0 Comments: Critical Result(s) Called Lisa RIVERA at: 20:23: by: BRITTANY TORRES 46-Zgz-464326:30 Partial Thromboplast Time Comments: [facility] [address] [place], [id number] PTT 41.3 s (Abnormal) Range: 24.1-36.2 76-Ciq-719159:30 Prothrombin Time w/INR Comments: [place] [address] [place], [id number] INR 2.3 (Normal) PROTIME 25.6 s (Abnormal) Range: 11.7-14.9 20-Szw-196878:30 Troponin-I Comments: [address] [place], [id number] TROPONIN-I 0.046 ng/mL (Abnormal) Comments: TROPONIN-I EXPECTED VALUES <0.045 Negative 0.045 - 0.590 Consistent with Cardiac Damage > OR = 0.600 Critical Value Not every elevated troponin is indicative of ND. T hesevalues should be used with clinical judgement in examiningthe patient's clinical picture for diagnosis. To establisha diagnosis of ND versus myocardial injury, there must be ademonstrated rise and/ or fall in the troponin values, inaddition to ischemic symptoms, EKG changes, new regionalwall motion abnormality, and/or angiographical evidence. PLEASE NOTE: REFERENCE RANGES EDITED 02/06/1805-Apr-201851-Pxg-916172:08 Ammonia Comments: [place] [address] [place], [id number] AMMONIA 20.0 umol/L (Normal) Range: 11-32 35-Cea-182119:08 CBC-Complete Blood Cnt No Diff Comments: [place] [address] [place], [place], [address] MPV 10.6 fL (Normal) Range: 6.2-12.0 PLT [...] 4.2-5.4 WBC 6.6 K/mm3 (Normal) Range: 4.4-11.0 32-Agq-960432:08 Comprehensive Metabolic Profil Comments: [facility] [address] [place], [place], [address] GAP 9 (Normal) Range: 5-15 CO2 35.0 [...] Please note revised GLUCOSE reference range /02/2018. 33-Hpq-076770:08 Differential Comment Comments: [facility] [address] [place], [id number] SMEAR COMMENT COMMENT (Normal) Comments: SLIDE SCANNED - 1+ ANISO NOTED. :55 Urinalysis, Complete Comments: How was Urine Obtained? [facility] [address] [place], [id number] AMORPHOUS 2+ (Normal) HYALINE CAST 5-10 SEEN [...] Drug Screen (VISTA) Comments: [facility] [address] [place], [id number] TO BE CONFIRMED (Normal) Comments: CONFIRMATORY TESTING [...] MUST BE ORDERED SEPARATELY. USE TESTMNEMONIC: UTCA 81-Zsv-44580:59 Bedside Glucose Comments: [facility] LaboratoryPoint of [address] [place] [address] BEDSIDE GLU 169 mg/dL (Abnormal) Range: 70-110 Comments: MANAGEMENT OF PATIENT CARE PER NURSING PROTOCOL 81-Uog-45436:35 Basic Metabolic Profile (BMP) Comments: [facility] [address] [place], [address] GAP 16 (Abnormal) Range: 5-15 CO2 15.0 mmol/L (Abnormal) Range: 21.0-32.0 CL 104 mmol/L (Normal) Range: 98-107 K 6.2 mmol/L (Abnormal) Range: 3.5-5.1 Comments: Critical Result(s) Called at: 01:06:28 03/08/2018 by:ANSLEY STANFORD,PARACHUTE HARNESS RIGGER NA 135 mmol/L (Abnormal) Range: 136-145 CA [...] A.D.A. criteria.Please note revised GLUCOSE reference range cccltlvku34/02/2018. 17-Sbz-277888:59 Acetaminophen (Tylenol) Level Comments: [facility] [address] [place] [place], [address] ACETAMINOPHEN 4.9 ug/mL (Abnormal) Range: 10.0-30.0 Comments: Slight Icterus, Result may be falsely decreased. 02-Ive-358199:59 Acetone Serum Comments: [facility] [address] [place], [id number] ACETONE SERUM NEGATIVE (Normal) 73-Nhk-515322:59 Alcohol, Blood (Medical)-Serum Comments: [facility] [address] [place], [id number] SERUM ETOH 8.0 mg/dL (Normal) Comments: The serum:whole blood ethanol ratio is approximately 1.14and varies slightly with hematocrit.Medical Alcohol reference interval and critical value innon-tolerant individuals; 50 - 100 Impairment 100 Intoxication 100 - 250 Severe Poisoning 250 - 400 Deep/possible fatal coma :59 Digoxin Level Comments: [facility] [address] [place], [address] DIG 0.32 ng/mL (Abnormal) Range: 0.80-2.00 56-Nbw-029438:59 Lactic Acid Comments: Yes/No query for Sepsis Lactate Rule [place] [address] [place], [address] LACTIC ACID 12.4 mmol/L (Abnormal) Range: 0.4-2.0 Comments: Critical Result(s) Called at: 00:52:58 03/08/2018 by:ANSLEY OWENSPARACHUTE HARNESS RIGGER 73-Pfa-178390:59 Partial Thromboplast Time Comments: [facility] [address] [place], [id number] PTT 33.7 s (Normal) Range: 24.1-36.2 99-Pru-527040:59 Prothrombin Time w/INR Comments: [place] [address] [place], [address] INR 2.4 (Normal) PROTIME 26.4 s (Abnormal) Range: 11.7-14.9 26-Mfa-369599:59 Salicylate Comments: [place] [address] [place], [address] SALICYLATE < 1.7 mg/dL (Abnormal) Range: 2.8-20.0 Comments: Slight Icterus, Result may be falsely decreased. 63-Dqu-050021:02 Blood Gases by [facility] [place] [address] [place] [address] SO2 ISTAT 99 % (Normal) [...] Radial (Normal) BLD GAS TYPE ART (Normal) 90-Ggx-526376:52 Bedside Glucose Comments: [place] [address] [place] [address] BEDSIDE GLU 214 mg/dL (Abnormal) Range: 70-110 Comments: MANAGEMENT OF PATIENT CARE PER NURSING PROTOCOL 27-Tij-933424:37 Basic Metabolic Profile (BMP) Comments: [place] [address] [place], [address] GAP 19 (Abnormal) Range: 5-15 CO2 11.0 [...] A.D.A. criteria.Please note revised GLUCOSE reference range ddyvebadn38/02/2018. 51-Yep-220510:37 CBC W/Diff, Automated Comments: [facility] [id number] [place], [place], [address] CRENATED RBC 1+ (Normal) ANISO 1+ (Normal) [...] 4.4-11.0 :37 Lipase Comments: [facility] [id number] [place], [place], [id number] LIPASE 86 U/L (Normal) Range: 73-393 53-Yxj-[id number]:37 Liver Profile Comments: [facility] [id number] [place], [place], [id number] D BILI 1.07 mg/dL (Abnormal) Range: 0.00-0.30 [...] 6.4-8.2 :37 Magnesium Comments: [facility] [id number] [place], [place], [id number] MG 2.0 mg/dL (Normal) Range: 1.6-2.6 Comments: Moderate Hemolysis, Result may be falsely increased. :37 Troponin-I Comments: [facility] [id number] [place], [place], [id number] TROPONIN-I 0.081 ng/mL (Abnormal) Comments: TROPONIN-I EXPECTED VALUES <0.045 Negative 0.045 - 0.590 Consistent with Cardiac Damage > OR = 0.600 Critical Value Not every elevated troponin is indicative of ND. T hesevalues should be used with clinical judgement in examiningthe patient's clinical picture for diagnosis. To establisha diagnosis of ND versus myocardial injury, there must be ademonstrated rise and/ or fall in the troponin values, inaddition to ischemic symptoms, EKG changes, new regionalwall motion abnormality, and/or angiographical evidence. PLEASE NOTE: REFERENCE RANGES EDITED 02/06/1824-Feb-20185-Xyb-424964:21 CMV ANTIBODY (62532) Comments: today; PATIENT NOT FASTINGPERFORMED BY: [facility]Aled[facility] [facility] [id number] Cytomegalovirus (CMV) Ab, IgG <0.60 U/mL (Normal) Range: 0.00-0.59 Comments: Negative <0.60 Equivocal 0.60 - 0.69 Positive >0.69 0-Ncz-079212:21 HEPATITIS PANEL (50873) Comments: today; PATIENT NOT FASTINGPERFORMED BY: [facility]Aled[facility] [facility] [id number] Hep C Virus Ab <0.1 {s/co_ratio} (Normal) Range: 0.0-0.9 Comments: Negative: < 0.8 Indeterminate: 0.8 - 0.9 Positive: > 0.9 . The CDC recommends that a positive HCV antibody result be followed up with a HCV Nucleic Acid Amplification test (662645). Hep B Core Ab, IgM Negative (Normal) HBsAg Screen Negative (Normal) Hep A Ab, IgM Negative (Normal) 5-Psh-376842:21 EBV Panel (97780) Comments: today; PATIENT NOT FASTINGPERFORMED BY: [facility]Aled[facility] [facility] [id number] Interpretation: [facility] (Normal) Comments: EBV Interpretation Chart . Interpretation [...] <36.0 Equivocal 36.0 - 43.9 Positive >43.9 38-Gaa-921495:19 CBC W/Diff, Automated Comments: Order Date: 02/23/18Order Info: 0184-1 - CBCDOrder Info: 86527-5 - [facility] Aiprmdqvkg5482 Ping [place], [place], [address] MACROCYTE 1+ (Normal) ANISO RARE (Normal) Absolute [...] 4.2-5.4 WBC 6.9 K/mm3 (Normal) Range: 4.4-11.0 05-Mok-382485:19 Comprehensive Metabolic Profil Comments: Order Date: 02/23/18Order Info: 0786-1 - CMPOrder Info: 1798-8 - AMYOrder Info: 3040-3 - [facility] Mrwykrccnz[address] [place], [place], [address] GAP 11 (Normal) Range: 5-15 CO2 25.0 [...] A.D.A. criteria.Please note revised GLUCOSE reference range rrlupzray20/02/2018. 89-Qjt-924299:19 Erythrocyte Sed Rate Comments: Order Date: 02/23/18Order Info: 0184-1 - CBCDOrder Info: 35080-3 - [facility] Cplpmkozob9812 [address] [place], [address](247) SED RATE 16 mm/h (Normal) Range: 0-30 05-Bcu-551484:19 Lipase (37664) Comments: Order Date: 02/23/18Order Info: 0786- 1 - CMPOrder Info: 1798-8 - AMYOrder Info: 3040-3 - [facility] Msoznlqdqd9581 [address] [place], [address] LIPASE 92 U/L (Normal) Range: 73-393 99-Htn-124876:19 Amylase (96197) Comments: Order Date: 02/23/18Order Info: 0786- 1 - CMPOrder Info: 1798-8 - AMYOrder Info: 3040-3 - [facility] Dclotcxrmd3514 [address] [place], [address] ARIAN 27 U/L (Normal) Range: 25-115 3-Whc-614057:15 Amylase Comments: CMP, CBCD IS FOR DR ORONA IS FOR [facility] Gzgsofirel2636 [place], [address] ARIAN 29 U/L (Normal) Range: 25-115 2-Ype-732944:15 CBC W/Diff, Automated Comments: CMP, CBCD IS FOR DR ORONA IS FOR [facility] Hjiisvzlfe0901 [place], [address] ANISO 1+ (Normal) Absolute Lymph 0.41 {X10_3/ul} [...] 4.2-5.4 WBC 5.3 K/mm3 (Normal) Range: 4.4-11.0 5-Eoy-863180:15 Comprehensive Metabolic Profil Comments: CMP, CBCD IS FOR DR ORONA IS FOR [facility]ENTERMercedeschristus st. vin[facility] centerdequan [facility] Hmdbesxccm4022 [place], [place], [address] GAP 9 (Normal) Range: 5-15 CO2 27.0 [...] A.D.A. criteria.Please note revised GLUCOSE reference range uwznshsft51/02/2018. 7-Roc-517759:15 Digoxin Level Comments: CMP, CBCD IS FOR DR ORONA IS FOR [facility] Julbfcjlav0350 [place], [address] DIG 0.92 ng/mL (Normal) Range: 0.80-2.00 7-Pjf-387052:15 Lipase Comments: KEVIN, CBCD IS FOR DR ORONA IS FOR [facility] Upzebkzyyo4145 [place], [address] LIPASE 101 U/L (Normal) Range: 73-393 5-Ejl-708176:15 Lipid Profile Comments: KEVIN, CBCD IS FOR DR ORONA IS FOR [facility] Amcmckdoua1007 [place], [address] VLDL 15 mg/dL (Normal) Range: [...] 200-240 mg/dL Borderline >240 mg/dL High Risk 9-Hwl-898377:15 Magnesium Comments: CMP, CBCD IS FOR DR ORONA IS FOR [facility] Aj[address] [place], [address] MG 1.8 mg/dL (Normal) Range: 1.6-2.6 7-Xsm-132153:15 Microalb:Creat Ratio,Random UR Comments: CMP, CBCD IS FOR DR ORONA IS FOR [facility] Sphgsdmazu5510 [place], [address] MALB:CREAT 34.3 {mg/g_CRE} (Abnormal) MICROALBUMIN,UR 58.6 mg/L (Normal) UR CREAT 171.00 mg/dL (Normal) 4-Nlk-157021:15 Thyroid Stim Hormone (TSH) Comments: CMP, CBCD IS FOR DR ORONA IS FOR [facility] Ampukwccfb6550 [place], [address] TSH 1.84 {uIU/mL} (Normal) Range: 0.358-3.74 6-Kev-907403:15 Vitamin B12 383 pg/mL (Normal) Comments: CMP, CBCD IS FOR DR ORONA IS FOR [facility] Crrpmeglet[address], [address] Range: 211-911 0-Qme-598401:15 Vitamin D,25 Hydroxy Comments: CMP, CBCD IS FOR DR ORONA IS FOR [facility] Iyhoyfpgzm9652[place], [place], [address] Vitamin D 25-OH 72.0 ng/mL (Normal) Range: 29.95-100.01 Comments: Vitamin D 25(OH) Status Range Deficiency <20 ng/mL (50nmol/L) Insuffciency 20 - 30 ng/mL (50 - 75 nmol/L) Sufficiency 30 - 100 ng/mL (75 - 250 nmol/L) Toxicity >100 ng/mL (>250 nmol/L) 37-Upk-463435:14 Blood Glucose , Office (35099) Blood Glucose , Office 137 (Normal) 09-Scy-691459:14 HgA1C , Office (37404) HgA1C , Office 6.1 % (Normal) Range: 4.6 - 7.1 :35 CBC W/Diff, Automated Comments: [facility] Nuqynguxsa3558 [facility]. [place], [place], [address] Absolute Lymph 1.30 {X10_3/ul} (Normal) Range: 0.83-4.51 [...] 4.2-5.4 WBC 4.2 K/mm3 (Abnormal) Range: 4.4-11.0 22-Xnr-95238:33 Comprehensive Metabolic Profil Comments: Reason for Laboratory Test [facility] Zyeiybdchc8481 [address] [place], [place], [address] GAP 8 (Normal) Range: 5-15 CO2 31.0 mmol/L (Normal) Range: 21.0-32.0 CL 99 mmol/L (Normal) Range: 98-107 K 3.4 mmol/L (Abnormal) Range: 3.5-5.1 NA 138 mmol/L (Normal) Range: 136-145 T BILI 0.70 mg/dL (Normal) Range: 0.20-1.00 ALT 27 U/L (Normal) Range: 13-56 Comments: Please note revised ALT reference range /28/2018. ALK P 102 U/L (Normal) Range: 45-117 [...] criteria.Please note revised GLUCOSE reference range /02/2018. 05-Tkz-19863:33 LDH 198 U/L (Normal) Comments: Reason for Laboratory Test OVSerial Specimen #1, #2 or #3? 1[facility] Yrufqyxkws8817 [address] [place], [place], [address] Range: 84-246 80-Xhj-500109:15 Culture, Urine Comments: [facility] Wbyppepioz9197 [address] [place], [place], [address] CUUR See Note (Normal) Comments: VERBAL ORDER DR. IRVIN'S OFFICE Urine CultureORGANISM 1: Mixed Gram Positive OrganismsColony Count 11,000-25,000MIX CULTURE Mixed contaminants. Submit a new specimen if indicated. 51-Clr-855398:11 CBC W/Diff, Automated Comments: [facility] Nlwdultvxh8886 [address] [place], [place], [address] Absolute Lymph 1.34 {X10_3/ul} (Normal) Range: 0.83-4.51 [...] 4.2-5.4 WBC 5.4 K/mm3 (Normal) Range: 4.4-11.0 97-Fav-573616:11 Comprehensive Metabolic Profil Comments: Comments: [facility] Ojnppdaero7660 [place], [address] GAP 7 (Normal) Range: 5-15 CO2 28.0 mmol/L (Normal) Range: 21.0-32.0 CL 100 mmol/L (Normal) Range: 98-107 K 3.9 mmol/L (Normal) Range: 3.5-5.1 NA 135 mmol/L (Abnormal) Range: 136-145 T BILI 0.70 mg/dL (Normal) Range: 0.20-1.00 ALT 31 U/L (Normal) Range: 13-56 Comments: Please note revised ALT reference range skrxutbmy64/28/2018. ALK P 110 U/L (Normal) Range: 45-117 [...] A.D.A. criteria.Please note revised GLUCOSE reference range weuinlkft12/02/2018. 53-Wrj-789625:10 Urinalysis, Complete Comments: ORDERED UACDR.JACINDA ORDERED CMP AND CBCDComments: clean catchComments: clean catchHow was Urine Obtained? ENVIRONMENTAL PROTECTION GEOLOGIST TO [facility] Pouwpvckuu[address] [place], [address] MUCUS, URINE RARE {/hpf} (Normal) BACTERIA RARE [...] (Normal) CLARITY Cloudy (Normal) COLOR Yellow (Normal) 7-Rtt-959152:42 ,Serum,hCG Quali. Comments: Comments: use blood in [facility] Ndobctxnph8136 [place], [address] HCGSQUAL NEGATIVE {Negative} (Normal) Range: 0-9 Nonpreg HCG Qual triggr 2 m[iU]/mL (Normal) 5-Knc-896302:41 Basic Metabolic Profile (BMP) Comments: [facility] Qfckujprap7587 [place], [address] GAP 10 (Normal) Range: 5-15 CO2 28.0 [...] A.D.A. criteria.Please note revised GLUCOSE reference range yvmcoudfl58/02/2018. 2-Jnz-697357:41 CBC-Complete Blood Cnt No Diff Comments: [facility] Uvzuzkdiux7325 [address] [place], [place], [address] MPV 9.6 fL (Normal) Range: 6.2-12.0 PLT [...] 4.2-5.4 WBC 8.7 K/mm3 (Normal) Range: 4.4-11.0 4-Uks-886551:41 Prothrombin Time w/INR Comments: [facility] Sbrikteurn0063 [address] [place], [place], [address] INR 1.0 (Normal) PROTIME 12.9 s (Normal) Range: 11.7-14.9 :00 Culture, Urine Comments: [facility] Viblbwysfr2580 [address] [place], [place], [address] CUUR See Note (Normal) Comments: Urine CultureORGANISM [...] Khanh ECLIA methodologyPerformed at: CB - [facility] [address] [id number] Director: Omar Hood PhD, Phone: [phone] :27 CBC W/Diff, Automated Comments: [facility] Zaikunozrn2841 [address] [place], [place], [address] Absolute Lymph 1.47 {X10_3/ul} (Normal) Range: 0.83-4.51 [...] 4.2-5.4 WBC 6.0 K/mm3 (Normal) Range: 4.4-11.0 66-Ymk-33585:27 Comprehensive Metabolic Profil Comments: [facility] Gsbdjenccw0725 Ping [address]ozadaFer [place], [place], [address] GAP 9 (Normal) Range: 5-15 CO2 28.0 [...] Microalb:Creat Ratio,Random UR Comments: [facility] [address] [place], [address] MALB:CREAT 17.4 {mg/g_CRE} (Normal) MICROALBUMIN,UR 37.5 mg/L (Normal) UR CREAT 215.00 mg/dL (Normal) :40 CBC W/Diff, Automated Comments: [facility] [address]clq[address] [place], [place], [address] Absolute Lymph 1.60 {X10_3/ul} (Normal) Range: 0.83-4.51 [...] 4.2-5.4 WBC 10.9 K/mm3 (Normal) Range: 4.4-11.0 49-Nbn-40310:39 Comprehensive Metabolic Profil Comments: Order Date: 12/06/16Order Info: 0786-1 - *CMP Complete Metabolic PanelWSamaritan Hospital Ydrstffdce8851 [place], [address] GAP 10 (Normal) Range: 5-15 CO2 27.0 [...] mg/dLsuggests IMPAIRED HOMEOSTASIS per A.D.A. criteria. :15 Culture, Urine Comments: [facility] Hegcbywzii6475 [place], [address] CUUR See Note (Normal) Comments: Urine CultureORGANISM [...] ordered and/or dispensed. :35 HgA1C , Office (30819) HgA1C , Office 6.5 % (Normal) Range: 4.6 - 7.1 :07 AFP, Tumor Marker Comments: Is Patient ? [facility] (refer to report for specific site)refer to report for address and phone number AFP TUMOR 2253 8.5 ng/mL (Abnormal) Range: 0.0-8.3 Comments: Khanh ECLIA methodologyPerformed at: CB - [facility] [address] [id number] Director: Omar Hood PhD, Phone: [phone] :[phone] CBC W/Diff, Automated Comments: [facility] Ysxnrwwvmd7065 [address] [place], [place], [address] Absolute Lymph 1.17 {X10_3/ul} (Normal) Range: 0.83-4.51 [...] 4.2-5.4 WBC 3.7 K/mm3 (Abnormal) Range: 4.4-11.0 :07 Comprehensive Metabolic Profil Comments: [facility] Brbzdvnaop4687 [address] [place], [place], [address] GAP 9 (Normal) Range: 5-15 CO2 28.0 [...] <126 mg/dLsuggests IMPAIRED HOMEOSTASIS per A.D.A. criteria. :07 NMR Lipoprofile Comments: [facility] (refer to report [...] the US Food and Drug Administration.Performed at: [facility] - LabRobert Ville [id number] [place], [place] [id number] Director: Zia Jarvis MD, Phone: [phone] INS RES/DIAB RK . (Normal) LDL SIZE [...] Vitamin D,25 Hydroxy Comments: [facility] Rlmlhpgedo6538 [address] [place], [address] Vitamin D 25-OH 61.8 ng/mL (Normal) Comments: Vitamin D 25(OH) Status Range Deficiency <20 ng/mL (50nmol/L) Insuffciency 20 - 30 ng/mL (50 - 75 nmol/L) Sufficiency 30 - 100 ng/mL (75 - 250 nmol/L) Toxicity >100 ng/mL (>250 nmol/L) :48 Liver Profile Comments: [facility] Ehdwowobvz7155 [address] [place], [address] D BILI 0.14 mg/dL (Normal) Range: 0.00-0.30 T BILI 0.50 mg/dL (Normal) Range: 0.20-1.00 ALT 57 U/L (Normal) Range: 12-78 ALK P 94 U/L (Normal) Range: 45-117 AST 40 U/L (Abnormal) Range: 15-37 GLOB 2.8 g/dL (Normal) Range: 2.3-3.5 ALB 3.9 g/dL (Normal) Range: 3.4-5.0 T PROT 6.7 g/dL (Normal) Range: 6.4-8.2 :45 Potassium Comments: [facility] Zfzhfciyku1427 [place], [address] K 4.3 mmol/L (Normal) Range: 3.5-5.1 :35 CBC W/Diff, Automated Comments: [facility] Uhomysrwkw7003 [place], [address] Absolute Lymph 1.24 {X10_3/ul} (Normal) Range: 0.83-4.51 [...] 4.2-5.4 WBC 3.6 K/mm3 (Abnormal) Range: 4.4-11.0 90-Dqb-83939:35 Comprehensive Metabolic Profil Comments: [facility] Yanksovhpf3279 [place], [address] GAP 10 (Normal) Range: 5-15 CO2 31.0 [...] 126 mg/dLsuggests DIABETES MELLITUS per A.D.A. criteria. 28-Avf-58457:0 ASPIRATION (SLIDES ONLY) See Note (Normal) Comments: [facility] Cdsmacuidv6251 [place], [address] 0 Comments: Patient: IFEOMA ASHRAF : 1965 (52/F) Acct Num: [id number] Phys: Janelle KING,Alejandro Unit Num: [id number] Loc: LABSPEC Specimen: [id number] Received: 03/18/17 112 Spec Ty pe: ASPIRATION TISSUES TISSUES: COMMENT Correlation with clinical, radiologic findings and appropriate follow up are necessary. CYTOLOGY GROSS Received are ten smears labeled wi th the patient's name and designated per the requisition as left thyroid FNA. Submitted for staining. / 03/18/17 TC:5 CPT: 34967 CYTOLOGY STUDY Slides are reviewed. The specimen is adequat e for evaluation. The specimen consists of benign follicular cells and colloid. DIAGNOSIS CYTOLOGY Left thyroid nodule, ultrasound-guided FNA (smears): Consistent with benign colloid nodul e. See cytology study and comment. SJ:garrison 03/21/17 HEADER OPERATION: Ultrasound-guided left thyroid FNA PRE-OP DIAGNOSIS: Left thyroid nodule TISSUE SUBMITTED: Left thyroid FNA Signed Toni Lantiguain 03/21/17 <signature on file> :30 HEPATITIS C ANTIBODY (58549) Comments: PATIENT NOT FASTINGPERFORMED BY: [facility] LabCoKessler Institute for RehabilitationDnomvz5435 [facility] [id number] Hep C Virus Ab <0.1 {s/co_ratio} (Normal) Range: 0.0-0.9 Comments: Negative: < 0.8 Indeterminate: 0.8 - 0.9 Positive: > 0.9 . The CDC recommends that a positive HCV antibody result be followed up with a HCV Nucleic Acid Amplification test (096155). :30 Potassium Serum (27118) Comments: PATIENT NOT FASTINGPERFORMED BY: LabCoKessler Institute for RehabilitationOollhv2255 [facility] [id number] Potassium, Serum 4.8 mmol/L (Normal) Range: 3.5-5.2 :29 HgA1C , Office (43181) HgA1C , Office 7.9 % (Abnormal) Range: 4.6 - 7.1 :53 CBC W/Diff, Automated Comments: [facility] Orleskwmyx2[address] [place], [place], [address] Absolute Lymph 1.57 {X10_3/ul} (Normal) Range: 0.83-4.51 [...] 4.2-5.4 WBC 4.8 K/mm3 (Normal) Range: 4.4-11.0 94-Sqb-58005:53 Comprehensive Metabolic Profil Comments: [facility] Tgotaoblcc6369 [address] [place], [place], [address] GAP 11 (Normal) Range: 5-15 CO2 32.0 [...] :53 Lipid Profile Comments: [facility] [address] [place], [place], [address] VLDL 37 mg/dL (Normal) Range: 5-40 LDL [...] Microalb:Creat Ratio,Random UR Comments: [facility] [address] [place], [address] MALB:CREAT 19.7 {mg/g_CRE} (Normal) MICROALBUMIN,UR 27.8 mg/L (Normal) UR CREAT 141.00 mg/dL (Normal) 32-Gfi-94728:53 Thyroid Stim Hormone (TSH) Comments: [facility] R[address]futulwt[address] [place], [place], [address] TSH 2.39 {uIU/mL} (Normal) Range: 0.358-3.74 :53 Vitamin D,25 Hydroxy Comments: [facility] Jxtrybyzul6965 [address] [place], [address] Vitamin D 25-OH 79.9 ng/mL (Normal) Comments: Vitamin D 25(OH) Status Range Deficiency <20 ng/mL (50nmol/L) Insuffciency 20 - 30 ng/mL (50 - 75 nmol/L) Sufficiency 30 - 100 ng/mL (75 - 250 nmol/L) Toxicity >100 ng/mL (>250 nmol/L) 90-Trs-553924:08 CBC W/Diff, Automated Comments: [facility] Ajfvyjfzmd1537 [address] [place], [address] Absolute Lymph 2.04 {X10_3/ul} (Normal) Range: 0.83-4.51 [...] 4.2-5.4 WBC 9.0 K/mm3 (Normal) Range: 4.4-11.0 31-Avf-454485:08 Comprehensive Metabolic Profil Comments: [facility] Qbslcxnwkb0328 [address] [place], [place], [address] GAP 9 (Normal) Range: 5-15 CO2 27.0 [...] 126 mg/dLsuggests DIABETES MELLITUS per A.D.A. criteria. 00-Bpr-992279:00 Culture, Urine Comments: [facility] Xpexwjoegq3193 [address] [place], [place], [address] CUUR See Note (Normal) Comments: Urine CultureORGANISM 1: Mixed Gram Positive OrganismsColony Count >100,000MIX CULTURE Mixed contaminants. Submit a new specimen if indicated. 0-Bwu-270846:25 CBC W/Diff, Auto - EPLAB Comments: At [facility] Outpatient [facility], [facility]cologypatients receive CBC w/auto Differential ONLY. Physicianwill place an order for a manual differential or Pathologistreview at his discretion. [facility]. [address] [place] [address] [address] PET FEEDER: MATEO CASTANEDA DO PH:[phone] Hospital Qeilsfmrwk1809 [place], [address] Absolute Lymph 1.42 {X10_3/uL} (Normal) Range: 0.83-4.51 [...] 4.2-5.4 WBC 6.3 K/mm3 (Normal) Range: 4.4-11.0 4-Xev-090227:25 Comprehensive Metabolic Profil Comments: Order Date: 06/07/16Order Date: 16Serial Specimen #1, #2 or #3? [address] [place] [address] Bhzrbbqcri84[address] [place], [address] GAP 11 (Normal) Range: 5-15 CO2 24.0 [...] 200 mg/dLsuggests DIABETES MELLITUS per A.D.A. criteria. 5-Rku-590510:25 LDH 208 U/L (Normal) Comments: Order Date: 06/07/16Order Date: 16Serial Specimen #1, #2 or #3? [address] [place] [address] Bevbbxbshf4156 [place], [address] Range: 84-246 9-Cal-976225:25 Uric Acid Comments: Order Date: 06/07/16Order Date: 06/07/16erial Specimen #1, #2 or #3? 1[facility] Gjueyhngiz1452 [address] [place], [address] URIC 3.8 mg/dL (Normal) Range: 2.6-6.0 Comments: The drugs N-Acetylcysteine and Metamizole may falsely deressthis assay. :10 HgA1C , Office (41265) HgA1C , Office 8.0 % (Abnormal) Range: 4.6 - 7.1 :10 Blood Glucose , Office (83789) Blood Glucose , Office 223 (Normal) :24 AFP, Tumor Marker Comments: Is Patient ? [facility] (refer to report for specific site)refer to report for address and phone number AFP TUMOR 2253 8.5 ng/mL (Abnormal) Range: 0.0-8.3 Comments: [employer] ECLIA methodologyPerformed at: [facility] - [facility] [address] [id number] Director: Omar Hood PhD, Phone: [phone] :[phone] CBC W/Diff, Automated Comments: [facility] Wozkeyhaij5787 [address] [place], [place], [address] Absolute Lymph 1.35 {X10_3/ul} (Normal) Range: 0.83-4.51 [...] 4.2-5.4 WBC 4.1 K/mm3 (Abnormal) Range: 4.4-11.0 62-Qiv-27974:24 Comprehensive Metabolic Profil Comments: [facility] Bgnkdwzkew1446 [address] [place], [place], [address] GAP 9 (Normal) Range: 5-15 CO2 27.0 [...] 126 mg/dLsuggests DIABETES MELLITUS per A.D.A. criteria. 00-Uuk-06680:24 NMR Lipoprofile Comments: [facility] (refer to report [...] the US Food and Drug Administration.Performed at: [address] [id number] Director: Zia Jarvis MD, Phone: [phone] INS RES/DIAB RK . (Normal) LDL SIZE [...] mg/dL (Normal) Range: 100-199 LIPIDS . (Normal) 42-Nrh-222977:53 CBC W/Diff, Automated Comments: [facility] Bysbydjmcz1722 [address] [place], [place], [address] Absolute Lymph 1.41 {X10_3/ul} (Normal) Range: 0.83-4.51 [...] 4.2-5.4 WBC 12.2 K/mm3 (Abnormal) Range: 4.4-11.0 72-Nrb-058682:53 Comprehensive Metabolic Profil Comments: [facility] Kycaayivbl4610 [place], [address] GAP 13 (Normal) Range: 5-15 CO2 24.0 [...] 200 mg/dLsuggests DIABETES MELLITUS per A.D.A. criteria. 63-Nas-94895:42 CBC W/Diff, Automated Comments: [facility] Cgmfvupmmw5937 [address] [place], [place], [address] Absolute Lymph 1.92 {X10_3/ul} (Normal) Range: 0.83-4.51 [...] 4.2-5.4 WBC 6.2 K/mm3 (Normal) Range: 4.4-11.0 :42 Comprehensive Metabolic Profil Comments: [facility] Bszmlfbzfo6743 [address] [place], [place], [address] GAP 11 (Normal) Range: 5-15 CO2 25.0 [...] :55 Magnesium Comments: Order Date: 06/07/16Order Date: [facility]/07/16[facility] Cjhbwdizle0489 [address] [place], [place], [address] MG 2.0 mg/dL (Normal) Range: 1.8-2.4 :57 CBC W/Diff, Auto - EPLAB Comments: At [facility]Ac[facility] Medical Oncologypatients receive CBC w/auto Differential ONLY. Physiciantrenton place an order for a manual differential or Pathologistreview at his discretion. [facility] OUTPATIENT [facility]. [address] [place] [address] [address] PET FEEDER: MATEO CASTANEDA DO PH:[phone] Health System Feoajjugeq9[address] [place], [address] Absolute Lymph 1.38 {X10_3/uL} (Normal) Range: 0.83-4.51 [...] Profil Comments: Order Date: 06/07/16OV Order #: [id number] Specimen #1, #2 or #3? 1 [id number] Health System Inqbaqpcqx6606 [address] [place], [place], [address] GAP 13 (Normal) Range: 5-15 CO2 24.0 [...] (Normal) Comments: Order Date: 06/07/16 Order #: [id number] Specimen #1, #2 or #3? 1 [id number] Hospital Zntwasboxj7414 [address] [place], [place], [address] Range: 84-246 :56 Magnesium Comments: Order Date: 06/07/16OV Order #: [id number] Specimen #1, #2 or #3? [id number] [place] [address] [place], [address] MG 1.5 mg/dL (Abnormal) Range: 1.8-2.4 :56 Uric Acid Comments: Order Date: 06/07/16OV Order #: [id number] Specimen #1, #2 or #3? [id number] [place] [address] [place], [address] URIC 4.8 mg/dL (Normal) Range: 2.6-6.0 Comments: The drugs N-Acetylcysteine and Metamizole may falsely deressthis assay. :30 Liver Profile Comments: [facility] [id number] [place], [address] D BILI 0.13 mg/dL (Normal) Range: 0.00-0.30 T BILI 0.40 mg/dL (Normal) Range: 0.20-1.00 ALT 60 U/L (Normal) Range: 12-78 ALK P 126 U/L (Normal) Range: 50-136 AST 37 U/L (Normal) Range: 15-37 GLOB 2.7 g/dL (Normal) Range: 2.3-3.5 ALB 3.4 g/dL (Normal) Range: 3.4-5.0 T PROT 6.1 g/dL (Abnormal) Range: 6.4-8.2 :33 CBC W/AUTO DIFF WBC Comments: PATIENT NOT FASTINGPERFORMED BY: [facility] [id number] [facility] [id number] Information: NURSE DRAW ([id number]) Immature Grans (Abs) 0.0 {x10E3/uL} (Normal) Range: [...] PANEL, COMPREHENSIVE Comments: PATIENT NOT FASTINGPERFORMED BY: [id number] [id number] ([id number]) ALT (SGPT) 41 [iU]/L (Abnormal) Range: 0-32 [...] (Abnormal) Range: 65-99 :09 HgA1C , Office (09069) HgA1C , Office 7.0 % (Normal) Range: 4.6 - 7.1 :14 AFP, Tumor Marker Comments: Is [facility] ? [facility] (refer to report for specific site)refer to report for address and phone number AFP TUMOR 2253 7.7 ng/mL (Normal) Range: 0.0-8.3 Comments: Teramind ECLIA methodologyPerformed at: [facility] [address] [id number] Director: Omar Hood PhD, Phone: [phone] :[phone] CBC W/Diff, Automated Comments: [facility] [address] [place], [address] ; will review on 05/17 [...] 4.2-5.4 WBC 4.3 K/mm3 (Abnormal) Range: 4.4-11.0 60-Qrl-22712:14 Comprehensive Metabolic Profil Comments: [facility] [address] [place], [address] GAP 7 (Normal) Range: 5-15 CO2 28.0 [...] 126 mg/dLsuggests DIABETES MELLITUS per A.D.A. criteria. :14 Lipid Profile Comments: [facility] Errcmbgofr[address] [place], [place], [id number] VLDL 36 mg/dL (Normal) Range: 5-40 LDL [...] Microalb:Creat Ratio,Random UR Comments: [facility] [address] [place], [place], [id number] ; will review on 05/17 MALB:CREAT 14.6 {mg/g_CRE} (Normal) MICROALBUMIN,UR 23.4 mg/L (Normal) UR CREAT 160.00 mg/dL (Normal) :14 Thyroid Stim Hormone (TSH) Comments: [facility] [address] [place], [address] TSH 1.89 {uIU/mL} (Normal) Range: 0.358-3.74 :14 Vitamin D,25 Hydroxy Comments: [facility] [address] [place], [address] ; will review on 05/17 Vitamin D 25-OH 53.2 ng/mL (Normal) Comments: Vitamin D 25(OH) Status Range Deficiency <20 ng/mL (50nmol/L) Insuffciency 20 - 30 ng/mL (50 - 75 nmol/L) Sufficiency 30 - 100 ng/mL (75 - 250 nmol/L) Toxicity >100 ng/mL (>250 nmol/L) :23 CBC W/Diff, Automated Comments: [facility] Helyokmmgi9302 [place], [address] Absolute Lymph 1.65 {X10_3/ul} (Normal) Range: [...] 4.2-5.4 WBC 4.4 K/mm3 (Normal) Range: 4.4-11.0 :23 Comprehensive Metabolic Profil Comments: [facility] Isq[address]kloz[address] [place], [place], [address] GAP 9 (Normal) Range: 5-15 CO2 30.0 [...] 126 mg/dLsuggests DIABETES MELLITUS per A.D.A. criteria. 39-Bfn-110679:07 HgA1C , Office (98044) HgA1C , Office 8.5 % (Abnormal) Range: 4.6 - 7.1 :15 CBC W/Diff, Automated Comments: [facility] [address] [place], [place], [id number] Absolute Lymph 1.76 {X10_3/ul} (Normal) Range: 0.83-4.51 [...] 4.2-5.4 WBC 6.7 K/mm3 (Normal) Range: 4.4-11.0 :15 Comprehensive Metabolic Profil Comments: [facility] [address] [place], [place], [address] GAP 13 (Normal) Range: 5-15 CO2 23.0 [...] 200 mg/dLsuggests DIABETES MELLITUS per A.D.A. criteria. 07-Cmp-52627:15 Lipid Profile Comments: [facility] [address]vlec[address] [place], [address] VLDL 45 mg/dL (Abnormal) Range: 5-40 LDL [...] Vitamin D,25 Hydroxy Comments: [facility] Q[address]fv[address] [place], [address] Vitamin D 25-OH 28.8 ng/mL (Normal) Comments: Vitamin D 25(OH) Status Range Deficiency <20 ng/mL (50nmol/L) Insuffciency 20 - 30 ng/mL (50 - 75 nmol/L) Sufficiency 30 - 100 ng/mL (75 - 250 nmol/L) Toxicity >100 ng/mL (>250 nmol/L); ADDENDA: non-emergent till apt :35 CBC W/Diff, Automated Comments: [facility] [address]al[address] [place], [address] Absolute Lymph 1.26 {X10_3/ul} (Normal) Range: 0.83-4.51 [...] 4.2-5.4 WBC 4.8 K/mm3 (Normal) Range: 4.4-11.0 :35 Comprehensive Metabolic Profil Comments: [facility] [address]nxzjyd[address] [place], [place], [address] GAP 14 (Normal) Range: 5-15 CO2 26.0 [...] 200 mg/dLsuggests DIABETES MELLITUS per A.D.A. criteria. :0 ASPIRATION (SLIDES ONLY) See Note (Normal) Comments: [facility] [address]gbznugh[address] [place], [address] 0 Comments: Patient: IFEOMA ASHRAF : 1965 (50/F) Acct Num: [id number] Phys: Janelle KING,Alejandro Unit Num: [id number] Loc: [facility] Specimen: [id number] Received: 01/06/16 - 1129 Spec Ty pe: ASPIRATION TISSUES TISSUES: COMMENT Correlation with clinical, radiologic findings and appropriate follow up are necessary. CYTOLOGY GROSS Received are 10 smears labeled wit h the patient's name and designated per the requisition as fine needle aspiration left thyroid. Submitted for staining. 01/06/16 TC:5 CPT:90781 CYTOLOGY STUDY Slides are reviewed. The spe cimen contains the minimal number of follicular cells required for adequacy. The specimen is paucicellular and consists of benign follicular cells and diluted colloid. DIAGNOSIS CYTOLOGY Left th yroid nodule, ultrasound-guided FNA (smears): Consistent with benign colloid nodule. See cytology study and comment. SJ:garrison 01/07/16 HEADER OPERATION: Ultrasound guided fine needle as piration left thyroid PRE-OP DIAGNOSIS: E04.2 multinodular goiter TISSUE SUBMITTED: Fine needle aspiration left thyroid Signed Toni Yepez 01/07/16 <signature on file> 0-Wwp-470738:29 CBC W/Diff, Auto - EPLAB Comments: At [facility] Out[facility] Medical Oncologypatients receive CBC w/auto Differential ONLY. Physicianwill place an order for a manual differential or Pathologistreview at his discretion. [facility] OUTPATIENT [facility]. [address] [place] [address] [place] [address] PET FEEDER: MATEO CASTANEDA DO PH:[phone] Health System [address]moni[address] [place], [place], [address] Absolute Lymph 1.49 {X10_3/uL} (Normal) Range: 0.83-4.51 [...] 4.2-5.4 WBC 4.6 K/mm3 (Normal) Range: 4.4-11.0 0-Oys-845668:28 Comprehensive Metabolic Profil Comments: Serial Specimen #1, #2 or #3? 1[facility] [address] [place], [place], [address] GAP 8 (Normal) Range: 5-15 CO2 26.0 [...] 126 mg/dLsuggests DIABETES MELLITUS per A.D.A. criteria. 2-Adb-532182:28 LDH 213 U/L (Normal) Comments: Serial Specimen #1, #2 or #3? [address] [place] [address] [address] [place], [place], [phone](335) Range: 84-246 8-Avq-678398:28 Magnesium Comments: Serial Specimen #1, #2 or #3? [address] [place] [address] [address] [place], [address] MG 1.6 mg/dL (Abnormal) Range: 1.8-2.4 9-Pxy-144477:28 Uric Acid Comments: Serial Specimen #1, #2 or #3? [address] [place] [address] [address] [place], [address] URIC 4.8 mg/dL (Normal) Range: 2.6-6.0 26-Nov-20159:36 Miscellaneous Lab Procedure Comments: Comments: [id number] URINE TOX,RUN LOWEST TESTTest(s) Ordered: [id number] URINE TOX,RUN LOWEST TESTTrinity Health System [address]cgioupa[address] [place], [place], [address] MISC Comments: [id number] 6+OXYCODONE-BUND (ng/mL)DRUG RESULT SCREEN CUTOFF____ Amphetamines,Urine Negat LAB (Normal) scott ng/mL 1000Amphetamine test includes Amphetamine and Methamphetamine.Barbiturates Negative ng/mL 200Benzodiazepines Negative ng/mL 200Cannabinoid TEST Negative ng/mL 20Cocaine (Metab) Negative ng/mL 300Opiates Positive ng/mL 300 Opiates test includes Codeine, Morphine, Hydromorphone, [place] codone.Please Note:Confirmation performed by Mass SpectrometryCodeine NegativeMorphine NegativeHydromorphone NegativeHydrocodone Positive Hydrocodone Confirm 1950 ng/mL 300Oxycodone/Oxymorphone,Urine Negative ng/mL 300 Test includes Oxydodone and Oxymorphone. TESTI NG PERFORMED AT [facility]. ORIGINAL REPORT ON FILE IN LAB CONTAINS ADDITIONAL TEST SITE INFORMATION. 26-Nov-20159:36 Urine Drug Screen (VISTA) Comments: Comments: [id number] URINE TOX,RUN LOWEST TESTList of Drugs Taken or Suspected? UNKNOWNTr[facility] System Bkzowslado[address] [facility] [place], [place], [phone] ; ordered by Basali THC NEGATIVE (Normal) [...] TESTING MUST BE ORDERED SEPARATELY. USE TESTMNEMONIC: [facility] 11-Vbn-807798:20 HgA1C , Office (59594) HgA1C , Office 7.3 % (Abnormal) Range: 4.6 - 7.1 :13 AFP, Tumor Marker Comments: Is Patient ? [facility] (refer to report for specific site)refer to report for address and phone number AFP TUMOR 2253 6.4 ng/mL (Normal) Range: 0.0-8.3 Comments: Teramind ECLIA methodologyPerformed at: [facility] [address] [id number] Director: Omar Hood PhD, Phone: [phone] :[phone] CBC W/Diff, Automated Comments: [facility] Qxvuopglzb9837 [facility]. [place], [place], [address] Absolute Lymph 1.59 {X10_3/ul} (Normal) Range: 0.83-4.51 [...] 4.2-5.4 WBC 5.3 K/mm3 (Normal) Range: 4.4-11.0 72-Uyc-59771:13 Comprehensive Metabolic Profil Comments: [facility] [address] [place], [place], [address] GAP 10 (Normal) Range: 5-15 CO2 24.0 [...] :13 Lipid Profile Comments: [facility] [address]vqt[address] [place], [place], [address] ; non-emergent and pt has a f/u [...] Microalb:Creat Ratio,Random UR Comments: [facility] [address] [place], [address] MALB:CREAT 17.0 {mg/g_CRE} (Normal) MICROALBUMIN,UR 43.7 mg/L (Normal) UR CREAT 257.00 mg/dL (Normal) :13 Thyroid Stim Hormone (TSH) Comments: [facility] [address]wwmx[address] [place], [address] TSH 1.82 {uIU/mL} (Normal) Range: 0.358-3.74 :13 Vitamin D,25 Hydroxy Comments: [facility] [address] [place], [address] ; will review at 11/10 appt Vitamin D 25-OH 39.8 ng/mL (Normal) Comments: Vitamin D 25(OH) Status Range Deficiency <20 ng/mL (50nmol/L) Insuffciency 20 - 30 ng/mL (50 - 75 nmol/L) Sufficiency 30 - 100 ng/mL (75 - 250 nmol/L) Toxicity >100 ng/mL (>250 nmol/L) :40 CBC W/Diff, Automated Comments: [facility] [address] [place], [place], [address] Absolute Lymph 1.47 {X10_3/ul} (Normal) Range: 0.83-4.51 [...] 4.2-5.4 WBC 4.7 K/mm3 (Normal) Range: 4.4-11.0 :40 Comprehensive Metabolic Profil Comments: [facility] [address]aezg[address] [place], [place], [address] GAP 13 (Normal) Range: 5-15 CO2 24.0 [...] per A.D.A. criteria. :49 HgA1C , Office (15389) HgA1C , Office 7.8 % (Abnormal) Range: 4.6 - 7.1 :09 CBC W/Diff, Automated Comments: [facility] [address] [place], [place], [address] Absolute Lymph 1.07 {X10_3/ul} (Normal) Range: 0.83-4.51 [...] 4.2-5.4 WBC 5.3 K/mm3 (Normal) Range: 4.4-11.0 03-Myr-776151:09 Comprehensive Metabolic Profil Comments: [facility] Ncb[address]jafvl[address] [place], [place], [address] GAP 7 (Normal) Range: 5-15 CO2 28.0 [...] 200 mg/dLsuggests DIABETES MELLITUS per A.D.A. criteria. 8-Stf-732818:42 CBC W/Diff, Automated Comments: At [facility] Outpatient [facility] Medical Oncologypatients receive CBC w/auto Differential ONLY. Physicianwill place an order for a manual differential or Pathologistreview at his discretion. [facility] OUTPATIENT [facility]. [address] [place] [address] [place] [address] PET FEEDER: MATEO CASTANEDA DO PH:[phone] performed at:[facility] [address] [place], [place] [address] Absolute Lymph 1.60 {X10_3/ul} (Normal) Range: 0.83-4.51 [...] 4.2-5.4 WBC 7.0 K/mm3 (Normal) Range: 4.4-11.0 5-Ihq-681675:42 Comprehensive Metabolic Profil Comments: Serial Specimen #1, #2 or #3? 1Test performed at:[facility] [address] [place] [address] GAP 9 (Normal) Range: 5-15 CO2 25.0 [...] Comments: Please note revised CREATININE reference range yuomvedfc00/22/2015. BUN 20 mg/dL (Abnormal) Range: 7-18 GLU 118 mg/dL (Abnormal) Range: 70-110 Comments: Fasting Glucose result from 110 to <126 mg/dLsuggests IMPAIRED HOMEOSTASIS per A.D.A. criteria. 0-Nmo-519662:42 LDH 133 U/L (Normal) Comments: Serial Specimen #1, #2 or #3? 1Test performed at:[facility] [address] [place] [address] Range: 84-246 :42 Uric Acid Comments: Serial Specimen #1, #2 or #3? 1Test performed at:[facility] [address] [place] [address] URIC 4.6 mg/dL (Normal) Range: 2.6-6.0 3-Iiv-228601:02 CBC W/Diff, Automated Comments: Test performed at:[facility] [address] [place] [address] ; handled by vicki Absolute Lymph 1.23 [...] 4.2-5.4 WBC 4.1 K/mm3 (Abnormal) Range: 4.4-11.0 0-Msa-705340:02 Comprehensive Metabolic Profil Comments: Test performed at:[facility] Yoxosrpmfv1694 [place], [place] [address] GAP 12 (Normal) Range: 5-15 CO2 23.0 [...] Comments: Please note revised CREATININE reference range siuwjkhws30/22/2015. BUN 11 mg/dL (Normal) Range: 7-18 GLU 214 mg/dL (Abnormal) Range: 70-110 Comments: Glucose result greater than or equal to 200 mg/dLsuggests DIABETES MELLITUS per A.D.A. criteria. :49 VITAMIN B-12 (CYANOCOBALAMIN) Comments: PATIENT NOT FASTINGPERFORMED BY: Trippy Aukdxf4976 [facility] [id number] (83918) Vitamin B12 464 pg/mL (Normal) Range: 211-946 :49 Vitamin D Hydroxy (07834) Comments: PATIENT NOT FASTINGPERFORMED BY: Trippy Azcyaq0344 [facility] [id number] Vitamin D, 25-Hydroxy 11.5 ng/mL (Abnormal) Range: 30.0-100.0 Comments: Vitamin D deficiency has been defined by the [place] of[facility] Hospital[facility] and an Endocrine Society practice guideline as alevel of serum 25-OH vitamin D less than 20 ng/mL (1,2).The Endocrine Society went on to further define vitamin Dinsufficiency as a level between 21 and 29 ng/mL (2).1. IOM ([place] of Medicine). 2010. Dietary reference intakes for calcium and D. [place]: The National Academies Press.2. Sami MF, Sophie NC, Xiomara LARES, et al. Evaluation, treatment, and prevention of vitamin D deficiency: an Endocrine Society clinical practice guideline. JCEM. 2010; 96(7):1911-30. :49 CBC W/AUTO DIFF WBC Comments: PATIENT NOT FASTINGPERFORMED BY: [facility] Ajlvqj5334 [facility] [id number] Information: [id number] (42061) Immature Grans (Abs) 0.0 {x10E3/uL} (Normal) Range: [...] 3.77-5.28 WBC 6.1 {x10E3/uL} (Normal) Range: 3.4-10.8 05-Uat-417835:28 URINE GENESIS CULTURE-NITA COL Comments: PATIENT NOT FASTINGPERFORMED BY: [facility] Iwpzmc8591 [facility] [id number] Information: SRC:[facility] [id number] COUNT (49239) Antimicrobial MIHEAD (Normal) Comments: S = Susceptible; [...] Imipenem Meropenem Urine Final report (Abnormal) Culture,Comprehensive 87-Yrl-656144:24 Urinalysis, Office (91979) UA - LEUKOCYTE ESTERASE Trace (Normal) UA [...] Glucose Comments: Test performed at:[facility] Novffsfmot0173 [place], [place] [address] BEDSIDE GLU 129 mg/dL (Abnormal) Range: 70-110 Comments: MANAGEMENT OF PATIENT CARE PER NURSING PROTOCOL 31-Mar-20159:47 Urinalysis, Office (54479) UA - LEUKOCYTE ESTERASE Trace (Normal) UA - NITRITE Negative (Normal) URINE UROBILINGN NITA TIMED 2 mg/dL (Normal) UA - PROTEIN 300 mg/dL (Normal) UA - PH 6.0 (Normal) UA - BLOOD Hemolyzed Large (Normal) UA - SPECIFIC GRAVITY 1.030 (Abnormal) UA - KETONES 15 mg/dL (Abnormal) UA - BILIRUBIN Moderate (Normal) UA - GLUCOSE Negative (Normal) 82-Hiz-722981:57 Basic Metabolic Profile (BMP) Comments: Test performed at:[facility] [address] [place] [address] GAP 11 (Normal) Range: 5-15 CO2 27.0 [...] 126 mg/dLsuggests DIABETES MELLITUS per A.D.A. criteria. 91-Dcp-903479:57 Digoxin Level Comments: Test performed at:[facility] [address] [place] [address] DIG 1.17 ng/mL (Normal) Range: 0.80-2.00 28-Ino-287353:57 Hemoglobin A1c Comments: Test performed at:[facility] [address] [place] [address] HGB A1C 7.0 % (Abnormal) Range: 4.2-6.3 56-Klm-641347:57 Thyroid Stim Hormone (TSH) Comments: Test performed at:[facility] [address] [place] [address] TSH 0.89 {uIU/mL} (Normal) Range: 0.358-3.74 9-Ipg-897172:17 Urine Culture,Comprehensive Comments: PATIENT NOT FASTINGPERFORMED BY: [facility]CoK[facility] for RehabilitationXyogwl8789 [facility] [id number] Information: SRC:[facility] [id number] Result 1 BETAGB (Abnormal) Comments: Beta hemolytic [...] been reportedfor Streptococcus pyogenes (group A). (CLSI 2011) Urine Final report (Abnormal) Culture,Comprehensive 28-Feb-20154:10 Urinalysis, Complete Comments: Order Date: 02/28/15How was Urine Obtained? CLEAN CATCHTest performed at:[facility] [address]olgc[address] [place] [address] AMORPHOUS 1+ URATE (Normal) MUCUS, [...] Automated Comments: Test performed at:[facility] Uksozzrgcr7[address] [place] [address] Absolute Lymph 1.29 {X10_3/ul} (Normal) [...] 4.2-5.4 WBC 6.6 K/mm3 (Normal) Range: 4.4-11.0 28-Feb-20153:55 Comprehensive Metabolic Profil Comments: Test performed at:[facility] [address]yibm9[address] [place] [address] GAP 10 (Normal) Range: 5-15 CO2 26.0 [...] Lipase Comments: Test performed at:[facility] Ezduxyalhn2805 [facility] [place] [address] LIPASE 142 U/L (Normal) Range: 70-290 :40 HgA1C , Office (04117) HgA1C , Office 7.4 % (Abnormal) Range: 4.6 - 7.1 :03 CBC W/Diff, Automated Comments: Test performed at:[facility] Mjpekvqxdr2228 [facility] [place] [address] Absolute Lymph 1.31 {X10_3/ul} (Normal) Range: 0.83-4.51 [...] 4.2-5.4 WBC 5.1 K/mm3 (Normal) Range: 4.4-11.0 50-Xyt-413159:03 Comprehensive Metabolic Profil Comments: Test performed at:[facility] Eyzkgjscgc[address] [place], [place] [address] GAP 11 (Normal) Range: 5-15 CO2 26.0 [...] 126 mg/dLsuggests DIABETES MELLITUS per A.D.A. criteria. 55-Div-774830:00 Culture, Urine Comments: Test performed at:[facility] [address]oyrdk[address] [place] [address] CUUR See Note (Normal) Comments: Urine CultureORGANISM 1: Streptococcus agalactiae (B)[place] Count 1000-10,000 Streptococcus agalactiae (B): REACTION Ampicillin [...] from Beta-lactam/penicillin results.; ADDENDA: handled by edvin 90-Lxv-74125:32 CBC W/Diff, Auto - EPLAB Only Comments: At [facility] Outpatient [facility], [facility] patientsreceive CBC w/auto Differential ONLY. Physician will placean order for a manual differential or Pathologist review athis discretion. [facility] OUTPATIENT [facility]. [address] [place] [address] [place] [address] PET FEEDER: MATEO CASTANEDA DO PH:[phone] performed at:[facility] Qsmlxbqoqm[address] [place] [address] ; [facility] Absolute Neut 2.7 {X10_3/uL} (Normal) Range: 2.0-7.7 [...] or #3? 1Test performed at:[facility] Yylzybayhn[address] [place], [place] [address] Range: 87-241 Comments: ADDENDA: elliott :34 TSH (78466) Comments: PATIENT WAS FASTINGPERFORMED BY: [facility] [id number] TSH 1.240 {uIU/mL} (Normal) Range: 0.450-4.500 :34 LIPID PANEL (29449) Comments: PATIENT WAS FASTINGPERFORMED BY: [facility] [id number] LDL/HDL Ratio 2.6 {ratio_units} (Normal) Range: 0.0-3.2 [...] CREATININE RATIO Comments: PATIENT WAS FASTINGPERFORMED BY: [facility] [id number]; non- emergent till apt tomorrow (51277) AND (03674) Microalb/Creat Ratio 14.8 {mg/g_creat} (Normal) Range: 0.0-30.0 Microalbumin, Urine 44.5 ug/mL (Abnormal) Range: 0.0-17.0 Creatinine, Urine 301.0 mg/dL (Abnormal) Range: 15.0-278.0 :34 METABOLIC PANEL, Comments: PATIENT WAS FASTINGPERFORMED BY: [facility] Ucgflp6952 [facility] [id number] Information: [id number] COMPREHENSIVE (03038) ALT (SGPT) 21 [iU]/L (Normal) Range: 0-32 [...] Glucose, Serum 161 mg/dL (Abnormal) Range: 65-99 4-Tut-383764:10 HgA1C , Office (64685) HgA1C , Office 7.2 % (Abnormal) Range: 4.6 - 7.1 :47 CBC W/Diff, Automated Comments: Test performed at:[facility] [address]jphtsgzh[address] [place], [place] [address] ; Handled by Vicki Absolute Lymph 1.43 [...] 4.2-5.4 WBC 5.4 K/mm3 (Normal) Range: 4.4-11.0 :47 Comprehensive Metabolic Profil Comments: Test performed at:[facility] [address]apkd[address] [place], [place] [address] GAP 6 (Normal) Range: 5-15 CO2 30.0 [...] Microscopic Examination Comments: PATIENT NOT FASTINGPERFORMED BY: Trippy Ctnkys5996 [facility] [id number] Bacteria Few (Normal) Mucus Threads Present (Normal) Epithelial Cells (non renal) 0-10 {/hpf} (Normal) Range: 0 - 10 RBC 0-2 {/hpf} (Normal) Range: 0 - 2 WBC >30 {/hpf} (Abnormal) Range: 0 - 5 :01 Urinalysis, Routine Comments: PATIENT NOT FASTINGPERFORMED BY: Trippy Xcomfs4895 [facility] [id number] Microscopic Examination See below: (Normal) Comments: Microscopic was indicated and was performed. Nitrite, Urine Negative (Normal) Urobilinogen,Semi-Qn 0.2 mg/dL (Normal) Range: 0.0-1.9 Bilirubin Negative (Normal) Occult Blood Negative (Normal) Ketones Trace (Abnormal) Glucose Negative (Normal) Protein 1+ (Abnormal) WBC Esterase 3+ (Abnormal) Appearance Turbid (Abnormal) Urine-Color Yellow (Normal) pH 6.0 (Normal) Range: 5.0-7.5 Specific [place] 1.030 (Normal) Range: 1.005-1.030 :18 CBCD ALC 1.30 {X10_3/ul} (Normal) Range: 0.83-4.51 [...] 4.2-5.4 WBC 4.5 K/mm3 (Normal) Range: 4.4-11.0 20-Bbm-862623:18 CMP GAP 7 (Normal) Range: 5-15 CO2 [...] mg/dLsuggests DIABETES MELLITUS per A.D.A. criteria. :01 MJQHN-ZOQYVCBIUXG-LCROL (64624) Comments: PATIENT NOT FASTINGPERFORMED BY: [facility]ppyKessler Institute for RehabilitationVtdguv7469 [facility] [id number] AFP, Serum, Tumor Marker 7.1 ng/mL (Normal) Range: 0.0-8.3 Comments: Khanh ECLIA methodology :01 PTT (Activated Partial Comments: PATIENT NOT FASTINGPERFORMED BY: TrippyCarrie [place] 2662870 [facility] [id number] Thromboplastin Time) (02678) aPTT 25 {sec} (Normal) Range: 24-33 Comments: This test has not been validated for monitoring unfractionated heparintherapy. aPTT-based therapeutic ranges for unfractionated heparintherapy have not been established. For general guidelines onHeparin monitoring, refer to the [facility] Directory of Services. :01 PT (Prothrobim Time) (48365) Comments: PATIENT NOT FASTINGPERFORMED BY: [facility] Alma6370 [facility] [id number] Prothrombin Time 10.4 {sec} (Normal) Range: 9.1-12.0 INR 1.0 (Normal) Range: 0.8-1.2 Comments: Reference interval is for non-anticoagulated patients. . Suggested INR therapeutic range for Vitamin K anta gonist therapy: Standard Dose (moderate intensity therapeutic range): 2.0 - 3.0 Higher intensity therapeutic range 2.5 - 3.5 :01 TSH (76180) Comments: PATIENT NOT FASTINGPERFORMED BY: [facility] Alma6370 [facility] [id number] TSH 1.450 {uIU/mL} (Normal) Range: 0.450-4.500 :01 CBC W/AUTO DIFF WBC Comments: PATIENT NOT FASTINGPERFORMED BY: [address] [id number] Information: [id number] (54836) Immature Grans (Abs) 0.0 {x10E3/uL} (Normal) Range: [...] CREATININE RATIO Comments: PATIENT NOT FASTINGPERFORMED BY: [facility]ppyPres[facility] CenterGgldzu5494 [facility] [id number] (68896) AND (42521) Microalb/Creat Ratio 26.4 {mg/g_creat} (Normal) Range: 0.0-30.0 Microalbumin, Urine 96.0 ug/mL (Abnormal) Range: 0.0-17.0 Creatinine, Urine 364.2 mg/dL (Abnormal) Range: 15.0-278.0 :01 METABOLIC PANEL, COMPREHENSIVE Comments: PATIENT NOT FASTINGPERFORMED BY: [facility]ppyK[facility] Institute for RehabilitationXxjsgy1265 [facility] [id number] (01947) ALT (SGPT) 19 [iU]/L (Normal) Range: 0-32 [...] Glucose, Serum 118 mg/dL (Abnormal) Range: 65-99 30-Sep-20148:01 LIPID PANEL (14609) Comments: PATIENT NOT FASTINGPERFORMED BY: [facility] [id number] [facility] [id number] LDL/HDL Ratio 2.1 {ratio_units} (Normal) Range: 0.0-3.2 [...] (Normal) Range: 100-199 :19 HgA1C , Office (11621) HgA1C , Office 6.3 % (Normal) Range: [...] 4.2-5.4 WBC 7.0 K/mm3 (Normal) Range: 4.4-11.0 7-Vgc-582400:07 CMP GAP 7 (Normal) Range: 5-15 CO2 [...] 7-18 GLU 102 mg/dL (Normal) Range: 70-110 :59 Anaerobic & Aerobic Comments: PATIENT NOT FASTINGPERFORMED BY: Trippy Eebdpq3928 [facility] [id number] Information: SRC:EMIL [id number] RIGHT EYE Culture (80467) Antimicrobial MIHEAD (Normal) Comments: S = Susceptible; [...] hours. Anaerobic Culture Final report (Normal) :57 MESRT-BZEFCQMPPLB-WHBLD (25040) Comments: PATIENT WAS FASTINGPERFORMED BY: [facility]ppyKessler Institute for RehabilitationZjiawy9150 [facility] [id number] AFP, Serum, Tumor Marker 9.2 ng/mL (Abnormal) Range: 0.0-8.3 Comments: Khanh ECLIA methodology :57 PTT (Activated Partial Comments: PATIENT WAS FASTINGPERFORMED BY: [facility] [id number] Thromboplastin Time) (74521) aPTT 26 {sec} (Normal) Range: 24-33 Comments: This test has not been validated for monitoring unfractionated heparintherapy. aPTT-based therapeutic ranges for unfractionated heparintherapy have not been established. For general guidelines onHeparin monitoring, refer to the [facility] Directory of Services. :57 PT (Prothrobim Time) (66918) Comments: PATIENT WAS FASTINGPERFORMED BY: [facility] [id number] Prothrombin Time 10.5 {sec} (Normal) Range: 9.1-12.0 INR 1.0 (Normal) Range: 0.8-1.2 Comments: Reference interval is for non-anticoagulated patients. . Suggested INR therapeutic range for Vitamin K anta gonist therapy: Standard Dose (moderate intensity therapeutic range): 2.0 - 3.0 Higher intensity therapeutic range 2.5 - 3.5 :57 TSH (12251) Comments: PATIENT WAS FASTINGPERFORMED BY: [facility] [id number] TSH 3.200 {uIU/mL} (Normal) Range: 0.450-4.500 :57 CBC WITH MANUAL DIFF Comments: PATIENT WAS FASTINGPERFORMED BY: [facility] [id number] Information: [id number] (18667) Immature Grans (Abs) 0.0 {x10E3/uL} (Normal) Range: [...] PANEL, COMPREHENSIVE Comments: PATIENT WAS FASTINGPERFORMED BY: [facility]CoKess[facility] Institute for RehabilitationBqmiim7812 [facility] [id number] (06862) ALT (SGPT) 15 [iU]/L (Normal) Range: 0-32 [...] (Abnormal) Range: 65-99 :29 HgA1C , Office (92687) HgA1C , Office 5.4 % (Normal) Range: [...] 7-18 GLU 76 mg/dL (Normal) Range: 70-110 8-Dlp-737579:50 LIPID LDL 82 mg/dL (Normal) Range: 0-130 [...] CHOL 150 mg/dL (Normal) Comments: <200 mg/dL Ttwtpdnuk838-570 mg/dL Borderline>240 mg/dL High Risk :50 HgA1C , Office (83767) HgA1C , Office 5.8 % (Normal) Range: [...] [facility]. Approximately 10% of breast cancers are not detected by mammography. Anormal mammogram should not delay biopsy of a clinically suspiciousabnormality. Signed:Prashant Delgadillo M.D.[facility] 2012 at 9:19:01 AM [phone] Signed GP/GP If you are the referring physician and would like to consult with theradiologist who provided this interpretation, please herbie Bonilla M.D. at [phone]. If this radiologist is unavailable, youwill be directed to another radiologist to assist. If you are a patient with a question regarding this report, pleaseco ntactyour referring physician directly. Professional Interpretation Provided By: [employer], Phone , These documents contain legally protected [...] or destructionofthese documents. Dictated on 06/15/13918 by Stanislav Delgadillo MDranscribed on 06/15/13919 by ITS IMPORTSign by Prashant Delgadillo MD on 06/15/13920 Sign by: Prashant Delgadillo MD 58-Tpt-28607:27 THYROID Radiology Report See Note Comments: STUDY: [...] Delgadillo M.D.June 15, 2013 at 2:56:26 PM [id number] 8Electronically Signed GP/GP If you are the referring physician and would like to consult with theradiologist who provided this interpretation, please contact Sarmad Bonilla at [phone]. If this radiologist is unavailable, youwill be directed to another radiologist to assist. If you are a patient with a question regarding this report, pleasecontactyour referring physician directly. Profes sional Interpretation Provided By: [employer], Phone , These documents contain legally protected and confidential healthinformation intended only for the use of the indivi dual or entity namedabove. If you are not the intended recipient, you are hereby notifiedthatany disclosure, copying, distribution, or other use of these documents isstrictly prohibited. If you have rec eived this information in error,pleasenotify the sender immediately and arrange for the return or destructionofthese documents. Dictated on 06/15/13 1456 by Stanislav Delgadillo MDranscribed on 1732 by ITS IMPORTSign by Prashant Delgadillo MD on 06/15/13 1733 Sign by: Prashant Delgadillo MD 4-Rjt-857124:18 URINE GENESIS CULTURE-NITA COL Comments: PATIENT NOT FASTINGPERFORMED BY: [facility] Hhxycn4242 [facility] [id number] Information: SRC:UR [id number] COUNT (26816) Antimicrobial MIHEAD (Normal) Comments: S = Susceptible; [...] primarily for treating urinary tract infections. (CLSI, Q141-Q59,2009) Urine Culture,Comprehensive Final report (Normal) :48 Urinalysis, Office (63673) UA - LEUKOCYTE ESTERASE Large (Normal) UA - NITRITE Positive (Normal) URINE UROBILINGN NITA TIMED 2 mg/dL (Normal) UA - PROTEIN Negative mg/dL (Normal) UA - BLOOD Negative (Normal) UA - KETONES Moderate mg/dL (Normal) UA - BILIRUBIN Moderate (Normal) UA - GLUCOSE Small mg/dL (Normal) :06 MICROALBUMIN: CREATININE RATIO Comments: PATIENT WAS FASTINGPERFORMED BY: [facility] Vdruul5914 [facility] [id number] (56805) AND (28339) Microalb/Creat Ratio 27.4 {mg/g_creat} (Normal) Range: 0.0-30.0 Microalbumin, Urine 85.2 ug/mL (Abnormal) Range: 0.0-17.0 Creatinine, Urine 311.1 mg/dL (Abnormal) Range: 15.0-278.0 49-Nil-66144:06 METABOLIC PANEL, Comments: PATIENT WAS FASTINGPERFORMED BY: [facility]CoKessler Institute for RehabilitationOpppad8150 [place]inder Pan [place] [id number] Information: ADD [id number] AND DRAW FEE 99 6660 COMPREHENSIVE (41057) ALT (SGPT) 29 [iU]/L (Normal) Range: 0-32 [...] Glucose, Serum 76 mg/dL (Normal) Range: 65-99 :06 TSH (69939) Comments: PATIENT WAS FASTINGPERFORMED BY: [facility] [id number] TSH 3.040 {uIU/mL} (Normal) Range: 0.450-4.500 :06 LIPID PANEL (79957) Comments: PATIENT WAS FASTINGPERFORMED BY: [employer]70 [facility] [id number] LDL/HDL Ratio 2.4 {ratio_units} (Normal) Range: 0.0-3.2 HDL Cholesterol 55 mg/dL (Normal) Comments: According to ATP-III Guidelines, HDL-C >59 mg/dL is considered anegative risk factor for CHD. LDL Cholesterol Calc 134 mg/dL (Abnormal) Range: 0-99 VLDL Cholesterol Ramandepe 18 mg/dL (Normal) Range: 5-40 Cholesterol, Total 207 mg/dL (Abnormal) Range: 100-199 Triglycerides 89 mg/dL (Normal) Range: 0-149 :06 QBHBQ-MKAWGVACMDX-IPTYO (92277) Comments: PATIENT WAS FASTINGPERFORMED BY: [employer]6370 [facility] [id number] AFP, Serum, Tumor Marker 5.4 ng/mL (Normal) Range: 0.0-8.3 Comments: Khanh ECLIA methodology :06 PTT (Activated Partial Comments: PATIENT WAS FASTINGPERFORMED BY: [employer]6370 [facility] [id number] Thromboplastin Time) (84476) aPTT 27 {sec} (Normal) Range: 24-33 Comments: This test has not been validated for monitoring unfractionated heparintherapy. aPTT-based therapeutic ranges for unfractionated heparintherapy have not been established. For general guidelines onHeparin monitoring, refer to the [facility] Directory of Services. :06 PT (Prothrobim Time) (72921) Comments: PATIENT WAS FASTINGPERFORMED BY: REINALDO [facility] Kplfcl7536 [facility] [id number] INR 1.1 (Normal) Range: 0.8-1.2 Comments: Reference interval is for non-anticoagulated patients. . Suggested INR therapeutic range for Vitamin K anta gonist therapy: Standard Dose (moderate intensity therapeutic range): 2.0 - 3.0 Higher intensity therapeutic range 2.5 - 3.5 Prothrombin Time 11.0 {sec} (Normal) Range: 9.1-12.0 :51 HgA1C , Office (25265) HgA1C , Office 5.0 % (Normal) Range: 4.6 - 7.1 :48 CBCD PATHR Reviewed (Normal) Comments: Leukopenia.Relative neutrophilia.Clinical correlation necessary.Toni Yepez M.D. 02/16/13 AMENDED REPORT 02/16/13 1339 PATH REV previously reported as: Isabel Cardoza: Pathologist comment added DC COMMENT: (Normal) Comments: [...] 4.2-5.4 WBC 3.6 {k/mm3} (Abnormal) Range: 4.4-11.0 :48 CMP GAP 9 (Normal) Range: 5-15 CO2 [...] mg/dL (Normal) Range: 70-110 :03 Rapid Flu (71507 x 2) Influenza A Ag positive b (Normal) :27 METABOLIC PANEL, COMPREHENSIVE Comments: PATIENT WAS FASTINGPERFORMED BY: [facility]CoK[facility] Institute for RehabilitationJpkhql2187 [facility] [id number] (54246) ALT (SGPT) 25 [iU]/L (Normal) Range: 0-32 [...] Glucose, Serum 82 mg/dL (Normal) Range: 65-99 27-Qzt-25298:27 LIPID PANEL (49996) Comments: PATIENT WAS FASTINGPERFORMED BY: [facility]CoK[facility] Institute for RehabilitationJlznhu1651 [facility] [id number] LDL/HDL Ratio 0.9 {ratio_units} (Normal) Range: 0.0-3.2 LDL Cholesterol Calc 29 mg/dL (Normal) Range: 0-99 VLDL Cholesterol Ramandeep 17 mg/dL (Normal) Range: 5-40 HDL Cholesterol 32 mg/dL (Abnormal) Comments: According to ATP-III Guidelines, HDL-C >59 mg/dL is considered anegative risk factor for CHD. Cholesterol, Total 78 mg/dL (Abnormal) Range: 100-199 Triglycerides 84 mg/dL (Normal) Range: 0-149 :27 TSH (54084) Comments: PATIENT WAS FASTINGPERFORMED BY: [facility] [id number] TSH 3.990 {uIU/mL} (Normal) Range: 0.450-4.500 10-Wlp-13021:27 CBC WITH MANUAL DIFF Comments: PATIENT WAS FASTINGPERFORMED BY: [facility] [id number] Information: [id number] (29319) Immature Grans (Abs) 0.0 {x10E3/uL} Range: 0.0-0.1 [...] 4.4 ng/mL (Normal) Range: 0.0-8.3 9:39 Comments: Khanh ECLIA methodologyPerformed at: CB - LabCo[address] [id number] Director: Manuelito Mendez PhD, Phone: [phone] 21-Bff-07298:39 CBCMD ANC 2.4 3/uL (Normal) Range: 2.0-7.7 [...] CHOL 130 mg/dL (Normal) Comments: <200 mg/dL Pcbpenkgo427-511 mg/dL Borderline>240 mg/dL High Risk :39 MIACRE tMICROCREAT 16.5 {mg/g_CRE} (Normal) MIALB 23.3 mg/L (Normal) CREU 141.0 mg/dL (Normal) :39 PT INR 1.1 (Normal) PTP 13.6 s (Normal) Range: 11.9-14.4 :39 PTT PTTP 29.5 s (Normal) Range: 24.1-36.2 :17 Rapid Flu (66358 x 2) Influenza A Ag neg (Normal) :29 HgA1C , Office (14801) HgA1C , Office 5.9 % (Normal) Range: 4.6 - 7.1 :53 FT3 2.9 pg/mL (Normal) Range: 2.18-3.98 :53 T4F 1.26 ng/dL (Normal) Range: 0.76-1.46 :53 TPO 8 {IU/mL} (Normal) Range: 0-34 Comments: Performed at: - [facility]M[place] [id number] Director: Codi Robles MD, Phone: [phone] TSH 1.23 {uIU/mL} (Normal) Range: 0.358-3.74 :04 HgA1C , Office (89227) HgA1C , Office 5.8 % (Normal) Range: 4.6 - 7.1 :26 CBCMD Comments: ORDERED TSH LIPID CMP CBCMD MIAMARVEL ORDERED VITD CMP CBCD RBCM NORM C+C [...] 4.2-5.4 WBC 4.8 K/mm3 (Normal) Range: 4.4-11.0 :26 CMP Comments: ORDERED TSH LIPID CMP CBCCHILDREN'S HOSPITAL LOS ANGELESJACINDA ORDERED VITD CMP CBCD GAP 8 (Normal) [...] :26 LIPID Comments: ORDERED TSH LIPID CMP CBCST. JOHN'S HEALTH CENTERJORGE ORDERED VITD CMP CBCD VLDL 21 mg/dL [...] (Normal) Comments: ORDERED TSH LIPID CMP CBCMD KRAIGJOSE ENRIQUE ORDERED VITD CMP CBCD Range: 0.358-3.74 :26 VITD 44.8 ng/mL (Normal) Comments: ORDERED TSH LIPID CMP CBCMD [facility].JACINDA ORDERED VITD CMP CBCD Range: 30.0-100.0 Comments: Vitamin D deficiency has been defined by the [place] ofW[facility] Hospitalcine and an Endocrine Society practice guideline as alevel of serum 25-OH vitamin D less than 20 ng/mL (1,2).The Endocrine Society went on to further define vitamin Dinsufficiency as a level between 21 and 29 ng/mL (2).1. IOM ([place] of Medicine). 2010. Dietary reference intakes for calcium and D. [place]: The National Academies Press.2. Sami MF, Sophie NC, Xiomara LARES, et al. Evaluation, treatment, and prevention of vitamin D deficiency: an Endocrine Society clinical practice guideline. JCEM. 2010; 96(7): 1911-30.Performed at: [address] [id number] Director: Codi Robles MD, Phone: [phone] 27-Jan-20128:02 BILAT SCRN DIGITAL & CAD Radiology [...] Signed GP/GP Professional Interpretat ion Provided By: [facility], , To consult with a radiologist regarding this report, please call our [id number] line @ Dicta dnai on 01/27/12 0813 by Faustina KING,PattieeleTranscribed on 01/27/12 0950 by ITS IMPORTSign by Faustina KING,Prashant on 01/27/12 0951 Sign by: Prashant Delgadillo MD 50-Uau-601473:24 HgA1C , Office (74363) HgA1C , Office 5.7 % (Normal) Range: 4.6 - 7.1 18-Brq-508365:24 Blood Glucose , Office (23714) Blood Glucose , Office 89 (Normal) 28-Zqs-761882:31 Urinalysis, Office (58271) UA - LEUKOCYTE ESTERASE Small (Normal) UA - NITRITE Positive (Normal) URINE UROBILINGN NITA TIMED Normal mg/dL (Normal) UA - PROTEIN 300 mg/dL (Normal) UA - PH 6.0 (Normal) UA - SPECIFIC GRAVITY 1.025 (Normal) UA - KETONES Small mg/dL (Normal) UA - BILIRUBIN Moderate (Normal) UA - GLUCOSE Negative (Normal) :15 HgA1C , Office (01224) HgA1C , Office 6.8 % (Normal) Range: 4.6 - 7.1 :15 Blood Glucose , Office (46223) Blood Glucose , Office 162 (Normal) 49-Esq-615615:22 THYROID Radiology Report See Note (Normal) Comments: [...] thyroid. Dictated on 09/07/11 112 2 by Stanislav Delgadillo MDranscribed on 09/08/11 1329 by ITS IMPORTSign by Prashant Delgadillo MD on 09/08/11 1330 Sign by: Prashant Delgadillo MD 99-Xcz-51608:59 COMP METABOLIC GAP 9 (Normal) Range: 5-15 [...] CULTURE-NITA COL Comments: PATIENT NOT FASTINGPERFORMED BY: REINALDO [facility] Retiez1236 [facility] [id number] Information: SRC:URC [id number] COUNT (90950) Antimicrobial MIHEAD (Normal) Comments: S = Susceptible; [...] Final report Culture,Comprehensive (Normal) :32 Urinalysis, Office (78874) UA - LEUKOCYTE ESTERASE Moderate (Normal) URINE UROBILINGN NITA TIMED Normal mg/dL (Normal) UA - PROTEIN 100 mg/dL (Normal) UA - PH 6.0 (Normal) UA - BLOOD Hemolyzed Large (Normal) UA - SPECIFIC GRAVITY 1.025 (Normal) UA - KETONES Negative mg/dL (Normal) UA - BILIRUBIN Negative (Normal) UA - GLUCOSE Negative (Normal) :28 Blood Glucose , Office (25403) Blood Glucose , Office 223 (Normal) :10 Urinalysis, Office (77683) UA - BILIRUBIN Small (Normal) UA - BLOOD Hemolyzed Large (Normal) UA - GLUCOSE Small (Normal) Comments: 100 UA - KETONES Negative mg/dL (Normal) UA - LEUKOCYTE ESTERASE Trace (Normal) UA - NITRITE Positive (Normal) UA - PH 5.0 (Normal) UA - PROTEIN 300 mg/dL (Normal) UA - SPECIFIC GRAVITY 1.020 (Normal) URINE UROBILINGN NITA TIMED 2 mg/dL (Normal) 7-Jwf-515177:29 URINE GENESIS CULTURE-NITA COL Comments: PATIENT NOT FASTINGPERFORMED BY: [facility] Ciatkh3196 [facility] [id number] Information: SRC:UR [id number] COUNT (65445) Antimicrobial MIHEAD (Normal) Comments: S = Susceptible; [...] mL (Normal) Urine Final report (Normal) Culture,Comprehensive 3-Vgq-658264:31 Urinalysis, Office (00169) UA - BILIRUBIN Large (Normal) UA - BLOOD Hemolyzed Moderate (Normal) UA - GLUCOSE Moderate (Normal) Comments: 250 mg/dL UA - KETONES Small mg/dL (Normal) Comments: 15mg/dL UA - LEUKOCYTE ESTERASE Large (Normal) UA - NITRITE Positive (Normal) UA - PH 5.0 (Normal) UA - PROTEIN 300 mg/dL (Normal) UA - SPECIFIC GRAVITY 1.015 (Normal) URINE UROBILINGN NITA TIMED 8 mg/dL (Normal) 62-Yph-82419:28 CBCD,SMEAR DIFF RED CELL MORPH SeeNote {NORMAL} [...] (Abnormal) Range: 0.358-3.74 :28 HgA1C , Office (73077) HgA1C , Office 8.3 % (Abnormal) Range: 4.6 - 7.1 :28 Blood Glucose , Office (16538) Blood Glucose , Office 176 (Normal) :24 [...] 200-240 mg/dL Borderline >240 mg/dL High Risk 03-Cnr-681930:54 BRAIN/HEAD W/WO CONTRAST Radiology See Note Comments: [...] the brain. Dictated on 10/13/10 1402 by Stanislav Delgadillo MDranscribed on 10/13/101457 by ITS IMPORTSign by Prashant [...] cipital bone. These are unchanged. Dictated on 10/14/10 08 by Faustina KING,PattieeleTranscribed on 10/14/10 0856 by ITS IMPORTSign by Prashant Delgadillo MD on 02/09/11 1702 Sign by: Prashant Delgadillo MD :44 HgA1C , Office (61361) HgA1C , Office 7.4 % (Abnormal) Range: 4.6 - 7.1 :44 Blood Glucose , Office (33176) Blood Glucose , Office 206 (Normal) :37 [...] Report See Note (Normal) Comments: Exam Number: [id number] AMMOGRAPHY - BILATERAL SCREENING INDICATION:Routine annual screening [...] attaching a ResultCode to this exam. ADDENDUM: [id number] HPBI/MDS Reported By: PRASHANT DELGADILLO :14 HgA1C , Office (10985) HgA1C , Office 7.0 % (Normal) Range: 4.6 - 7.1 :14 Blood Glucose , Office (13589) Blood Glucose , Office 164 (Normal) :30 LASHA DIR SEMI-QL LASHA DIRECT 24 AU/mL (Normal) :30 ANTI-dsDNA AB 10 {IU/mL} (Normal) :30 TSH 6.39 {uIU/mL} (Abnormal) Range: 0.358-3.74 :35 C-REACTIVE PROTEIN (67223) Comments: PATIENT NOT FASTINGPERFORMED BY: [place] [id number] [facility] [id number] C-Reactive Protein, Quant 6.5 mg/L (Abnormal) Range: 0.0-4.9 11-Xmp-200415:35 SED RATE ERYTHROCYTE (24207) Comments: PATIENT NOT FASTINGPERFORMED BY: [facility] [id number] Sedimentation Rate-Westergren 14 mm/h (Normal) Range: 0-20 :35 RHEUMATOID FACTOR-QUANT (07163) Comments: PATIENT NOT FASTINGPERFORMED BY: [facility] [id number] RA Latex Turbid. 7.6 {IU/mL} (Normal) Range: 0.0-13.9 :35 LASHA (ANTINUCLEAR ANTIBODY) Comments: PATIENT NOT FASTINGPERFORMED BY: [facility] [id number] (76199) LASHA Direct Positive (Abnormal) :35 T3, FREE (TRIDOTHYRONINE) (06851) Comments: PATIENT NOT FASTINGPERFORMED BY: [facility] [id number] Triiodothyronine,Free,Serum 2.8 pg/mL (Normal) Range: 2.0-4.4 :35 T4, FREE (THYROXINE) (33141) Comments: PATIENT NOT FASTINGPERFORMED BY: [place] 2271770 [facility] [id number] T4,Free(Direct) 0.76 ng/dL (Abnormal) Range: 0.82-1.77 21-Ufx-335232:35 Anti-TPO Antibody (85313) Comments: PATIENT NOT FASTINGPERFORMED BY: [facility] Fkvhpy0828 [facility] [id number] Thyroid Peroxidase (TPO) Ab <6 {IU/mL} (Normal) Range: 0-34 :35 TSH (59186) Comments: PATIENT NOT FASTINGPERFORMED BY: [facility] Ynwqwu8851 [facility] [id number] TSH 5.630 {uIU/mL} (Abnormal) Range: 0.450-4.500 Comments: Please note reference interval change :35 METABOLIC PANEL, Comments: PATIENT NOT FASTINGPERFORMED BY: [facility] Iebtuf2960 [facility] [id number] Information: [id number] COMPREHENSIVE (34996) ALT (SGPT) 55 [iU]/L (Abnormal) Range: 0-40 [...] Glucose, Serum 151 mg/dL (Abnormal) Range: 65-99 35-Woj-867815:02 GENESIS CULTURE-OTHER (48677) Comments: PATIENT NOT FASTINGPERFORMED BY: [facility]CoK[facility] for RehabilitationJjfkev4355 [facility] [id number] Information: SRC:THRT [id number] Result 1 Yeast isolated. (Normal) Comments: Moderate growthRequest for further identification must be madewithin 1 week. Upper Respiratory Culture Final report (Normal) 65-Ebl-04783:37 Rapid Strep Test, Office (39341) Rapid Strep Test, Office Negative (Normal) 68-Lbm-818269:11 THYROID (HP) Radiology Report See Note (Normal) Comments: Exam Number: [id number] CLINICAL:This is a 45-year-old female patient with history of thyroid nodule. ULTRASOUND THYROID TECHNIQUE:Multiple views were obtained. COMPARISON:Comparison is made with prior s tudy dated August 29, 2008. FINDINGS:Normal size, contour [...] the right lobe. Reported By: PRASHANT DELGADILLO 87-Qma-74897:41 COMP METABOLIC CL 100 mmol/L (Normal) Range: [...] 126 mg/dLsuggests DIABETES MELLITUS per A.D.A. criteria. :41 LIPID CHOL 147 mg/dL (Normal) Comments: <200 mg/dL Ugkgyvist903-867 mg/dL Borderline>240 mg/dL High Risk HDL 32 mg/dL (Abnormal) Comments: Reference RangeHDL <40 mg/dL Low HDL CholesterolHDL >or= 60 mg/dL High HDL Cholesterol LDL 89 mg/dL (Normal) Range: 0-130 TRIG 128 mg/dL (Normal) Comments: Serum Triglycerides Reference IntervalNormal <150 mg/dLBorderline high 150 - 199 mg/dLHigh 200 - 499 mg/ dLVery High > or = 500 mg/dL VLDL 26 mg/dL (Normal) Range: 5-40 :41 TSH 4.85 {uIU/mL} (Abnormal) Range: 0.358-3.74 87-Laq-349922:50 URINE GENESIS CULTURE-NITA COL Comments: PATIENT NOT FASTINGPERFORMED BY: REINALDO [facility] Rqepfa7436 Mohinder Pan [place] [id number] Information: SRC:UR ADD [id number] COUNT (22812) Result 1 Klebsiella pneumoniae Comments: 1,000 Colonies/mL [...] STrimethoprim/Sulfa S Urine Final report (Normal) Culture,Comprehensive 10-Fto-97303:55 Urinalysis, Office (69227) UA - LEUKOCYTE ESTERASE Small (Normal) UA - NITRITE Negative (Normal) URINE UROBILINGN NITA TIMED Normal mg/dL (Normal) UA - PROTEIN 30 mg/dL (Normal) UA - PH 6.0 (Normal) UA - BLOOD Negative (Normal) UA - SPECIFIC GRAVITY 1.020 (Normal) UA - KETONES Negative mg/dL (Normal) UA - BILIRUBIN Negative (Normal) UA - GLUCOSE Negative (Normal) 1-Ajl-370970:37 PET/CT,TUMOR,BASE-THIGH,SUBS Radiology Report See Note (Normal) Comments: Exam Number: [id number] EXAM: Body PET study Head to Mid [...] 44:398P, 2003). w Reported By: ADELA MOLINA 1-Fdv-004430:00 PRANEETH+ELPU24 3467 ALBUMIN,U 37.7 % (Normal) QOHSO-4-JQGG,U 3.2 % (Normal) FMJDI-0-IOWS,U 7.6 % (Normal) BETA GLOB,U 23.1 % (Normal) GAMMA GLOB,U 28.5 % (Normal) PRANEETH RESULT,U Comment (Normal) Comments: No monoclonality detected. M-SPIKE,UR% SeeNote % (Normal) Comments: Result: Not Observed PROTEIN, U24 62.1 {mg/24_hr} Range: 30.0-150.0 (Normal) PROTEIN,UR 2.3 mg/dL (Normal) Range: 0.0-15.0 7-Exk-886215:15 C-REACTIVE PROT < 2.90 mg/L (Normal) Range: 0.0-3.0 Comments: C-Reactive Protein (CRP) provides useful information for thediagnosis, therapy and monitoring of inflammatory processesand associated diseases. For the evaluation of Relative Riskfor Cardiovascular Dise ase, a High Sensitivity CRP (HSCRP)should be ordered. 1-Eju-465356:15 CBCD,SMEAR DIFF PLT EST SeeNote (Normal) Comments: [...] 4.2-5.4 WBC 4.3 K/mm3 (Abnormal) Range: 4.4-11.0 2-Xyy-146062:15 COMP METABOLIC CL 104 mmol/L (Normal) Range: [...] <126 mg/dLsuggests IMPAIRED HOMEOSTASIS per A.D.A. criteria. 0-Den-248320:15 ESR SED RATE 11 mm/h (Normal) Range: 0-20 5-Nih-250901:15 LDH 197 U/L (Abnormal) Range: 100-190 6-Jgu-135582:15 LIPID HDL 30 mg/dL (Abnormal) Comments: Reference [...] CHOL 154 mg/dL (Normal) Comments: <200 mg/dL Zacznmrah723-004 mg/dL Borderline>240 mg/dL High Risk :15 PROT.[id number] NOTE Comment (Normal) Comments: Protein electrophoresis scan will follow via computer,mail, or underwriting account representative delivery.Performed at: - Lab[address] [id number] Director: Kamlesh Arana MD ALBUMIN,UR 54.2 % (Normal) TOXKF-0-NHZY,U 1.2 % (Normal) EEIVB-7-SAUF,U 9.4 % (Normal) BETA GLOB,U 23.4 % (Normal) GAMMA GLOB,U 11.8 % (Normal) M-SPIKE,U SeeNote % (Normal) Comments: Result: Not Observed PROTEIN,UR 13.6 mg/dL (Normal) Range: 0.0-15.0 9-Yjm-227396:15 SPE [id number] A/G RATIO 1.8 (Normal) Range: 0.7-2.0 GLOBULIN, [...] electrophoresis scan will follow via computer,mail, or underwriting account representative delivery. M-SPIKE SeeNote g/dL (Normal) Comments: Result: Not Observed GAMMA GLOBULIN 0.4 g/dL (Abnormal) Range: 0.5-1.6 ALBUMIN 3.9 g/dL (Normal) Range: 3.2-5.6 ALPHA-1 GLOBUL 0.2 g/dL (Normal) Range: 0.1-0.4 ALPHA-2 GLOBUL 0.7 g/dL (Normal) Range: 0.4-1.2 BETA GLOBULIN 0.9 g/dL (Normal) Range: 0.6-1.3 PROTEIN,TOTAL 6.1 g/dL (Normal) Range: 6.0-8.5 [id number] BRAIN/HEAD WITHOUT CONTRAST Radiology Report See Note (Normal) Comments: Exam Number: [id number] CT SCAN OF BRAIN HISTORYLytic lesion, lymphoma. [...] for confirmation. Reported By: TRUE NAGEL M.D. 66-Izq-520564:23 SPINE,CERVICAL WITHOUT CONTRAS Radiology Report See Note (Normal) Comments: Exam Number: [id number] CLINICAL:44 year old female with cervical radiculopathy. [...] tumor involvement. Reported By: SHARYN JASMINE M.D. 34-Tfl-209777:50 Blood Glucose , Office (56800) Blood Glucose , Office 105 (Normal) 62-Imx-016016:50 HgA1C , Office (02640) HgA1C , Office 6.1 % (Normal) Range: 4.6 - 7.1 90-Cvl-540107:24 URINE GENESIS CULTURE-NITA COL Comments: PATIENT NOT FASTINGPERFORMED BY: REINALDO [facility] [id number] [address] [place] [id number] Information: SRC:UR [id number] COUNT (75971) Antimicrobial MIHEAD (Normal) Comments: S = Susceptible; [...] mL (Normal) Urine Final report (Normal) Culture,Comprehensive 03-Dte-551261:41 Urinalysis, Office (31534) UA - LEUKOCYTE ESTERASE Large (Normal) UA - NITRITE Negative (Normal) URINE UROBILINGN NITA TIMED Normal mg/dL (Normal) UA - PROTEIN 100 mg/dL (Normal) UA - PH 5.0 (Normal) UA - BLOOD Hemolyzed Large (Normal) UA - SPECIFIC GRAVITY 1.025 (Normal) UA - KETONES Negative mg/dL (Normal) UA - BILIRUBIN Negative (Normal) UA - GLUCOSE Negative (Normal) 8-Rhz-997052:19 BLOOD GAS, O2 SAT ONLY - INITL Radiology Report See Note (Normal) Comments: Exam Number: [id number] Procedure completed. Please see MEDICAL RECORDS reports in PCI - OP - OP NOTE LET - LETTER. Reported By: BOONE CH M.D. 7-Blz-931081:19 BLOOD GAS, O2 SAT ONLY - SUBSQ Radiology Report See Note (Normal) Comments: Exam Number: [id number] Procedure completed. Please see MEDICAL RECORDS reports in PCI - OP - OP NOTE LET - LETTER. Reported By: BOONE CH M.D. 7-Uwr-781958:19 BLOOD GAS, O2 SAT ONLY - SUBSQ Radiology Report See Note (Normal) Comments: Exam Number: [id number] Procedure completed. Please see MEDICAL RECORDS reports in PCI - OP - OP NOTE LET - LETTER. Reported By: BOONE CH M.D. :45 RHC/LHC/CORS/LV Radiology Report See Note (Normal) Comments: Exam Number: [id number] Procedure completed. Please see MEDICAL RECORDS reports [...] 3.5-5.1 NA 135 mmol/L (Abnormal) Range: 136-145 :59 CBC HCT 40.9 % (Normal) Range: 37-47 HGB 13.7 g/dL (Normal) Range: 12.0-16.0 MCH 33.6 pg (Abnormal) Range: 27.0-32.0 MCHC 33.5 g/dL (Normal) Range: 32-36 MCV 100.2 fL (Abnormal) Range: 81-99 MPV 7.7 fL (Normal) Range: 6.5-12.0 PLT 251 K/mm3 (Normal) Range: 150-450 RBC 4.08 {M/mm3} (Abnormal) Range: 4.2-5.4 RDW 13.5 % (Normal) Range: 11.6-14.6 WBC 4.4 K/mm3 (Normal) Range: 4.4-11.0 10-Nbz-443757:03 CULTURE, URINE URINE CULTURE See Note {CFU/mL} (Normal) Comments: COLONY COUNT 11,000-25,000 ORGANISM 1: MIXED GRAM POSITIVE ORGANISMS :58 Urinalysis, Office (58070) UA - BILIRUBIN Negative (Normal) UA - BLOOD Negative (Normal) UA - GLUCOSE Negative (Normal) UA - KETONES Negative mg/dL (Normal) UA - LEUKOCYTE ESTERASE Small (Normal) Comments: aw UA - NITRITE Negative (Normal) UA - PH 6.0 (Normal) UA - PROTEIN Negative mg/dL (Normal) UA - SPECIFIC GRAVITY 1.010 (Normal) URINE UROBILINGN NITA TIMED Normal mg/dL (Normal) :53 HgA1C , Office (38429) HgA1C , Office 5.7 % (Normal) Range: 4.6 - 7.1 :53 Blood Glucose , Office (49466) Blood Glucose , Office 133 (Normal) :24 [...] (Normal) Range: 6.4-8.2 :53 HgA1C , Office (47248) HgA1C , Office 10.0 % (Abnormal) Range: 4.6 - 7.1 24-Ihw-916323:53 Blood Glucose , Office (51612) Blood Glucose , Office 410 (Normal) :46 [...] mg/dL VLDL 49 mg/dL (Abnormal) Range: 5-40 :46 MICROALB:CRE UR MALB:CREAT 33.3 {mg/g_CRE} (Abnormal) MICROALBUMIN,UR 62.2 mg/L (Normal) UR CREAT 186.7 mg/dL (Normal) 10-Sqb-109870:11 LIPID Comments: PATIENT NOT FASTING/DEMANDED TO BE [...] 500 mg/dL VLDL 31 mg/dL (Normal) Range: 5-40 38-Uum-197376:11 LIVER Comments: PATIENT NOT FASTING/DEMANDED TO BE DRAWN ALT 43 U/L (Normal) Range: 30-65 D BILI 0.07 mg/dL (Normal) Range: 0.00-0.30 T BILI 0.35 mg/dL (Normal) Range: 0.00-1.00 ALB 3.4 g/dL (Normal) Range: 3.4-5.0 ALK P 210 U/L (Abnormal) Range: 50-136 AST 27 U/L (Normal) Range: 15-37 T PROT 6.4 g/dL (Normal) Range: 6.4-8.2 46-Hgl-357262:23 Urinalysis, Office (52397) Comments: done BC UA - BILIRUBIN Negative (Normal) UA - BLOOD Hemolyzed Large (Normal) UA - GLUCOSE Large (Normal) Comments: > 1000mg/dL UA - KETONES Negative mg/dL (Normal) UA - LEUKOCYTE ESTERASE Moderate (Normal) UA - NITRITE Negative (Normal) UA - PH 6.0 (Normal) UA - PROTEIN 30 mg/dL (Normal) UA - SPECIFIC GRAVITY 1.010 (Normal) URINE UROBILINGN NITA TIMED Normal mg/dL (Normal) 14-Nqu-725080:44 MYOCARD PERF SPECT REST/STRESS Radiology Report See Note (Normal) Comments: Exam Number: [id number] MYOCARDIAL PERFUSION SCAN TECHNIQUEThe patient was injected [...] of 37%. Reported By: NOE MORRIS M.D. 85-Vql-51556:39 SPINE, LUMBAR W/W/O CONTRAST Radiology Report See Note (Normal) Comments: Exam Number: [id number] MAGNETIC RESONANCE IMAGING OF THE LUMBAR SPINE [...] other abnormality. Reported By: SUSAN GOMEZ M.D. 46-Vlg-244536:04 CULTURE, URINE URINE CULTURE See Note {CFU/mL} (Normal) Comments: COLONY COUNT 25,000-50,000 ORGANISM 1: MIXED GRAM POSITIVE ORGANISMS 85-Znh-829185:15 Urinalysis, Office (32927) UA - LEUKOCYTE ESTERASE Small (Normal) Comments: aw UA - NITRITE Negative (Normal) UA - PH 5.0 (Normal) UA - PROTEIN Negative mg/dL (Normal) URINE UROBILINGN NITA TIMED Normal mg/dL (Normal) UA - BILIRUBIN Negative (Normal) UA - BLOOD Negative (Normal) UA - GLUCOSE Negative (Normal) UA - KETONES Negative mg/dL (Normal) UA - SPECIFIC GRAVITY 1.025 (Normal) 04-Eax-882826:09 Blood Glucose , Office (86480) Blood Glucose , Office 231 (Normal) 22-Ija-644922:09 HgA1C , Office (66464) HgA1C , Office 7.1 % (Normal) Range: 4.6 - 7.1 71-Kdh-740368:42 CBCD,SMEAR DIFF CELLS COUNTED 100 (Normal) HCT [...] 47-70 WBC 4.3 K/mm3 (Abnormal) Range: 4.4-11.0 51-Iuv-384925:42 COMP METABOLIC A/G 1.2 {RATIO} (Normal) Range: [...] for patient's is the eGFRmultiplied by 1.212. [facility] Laboratory uses the abbreviated Modification of [...] Disease W/O Kidney Disease>/= 90 Stage One Aiouxg36 - 89 Stage Two Suspect Decreased GFR30 [...] T PROT 6.5 g/dL (Normal) Range: 6.4-8.2 22-Qei-505334:42 LIPID CHOL 182 mg/dL (Normal) Comments: <200 [...] mg/dL VLDL 36 mg/dL (Normal) Range: 5-40 52-Nne-282057:42 MICROALB:CRE UR MALB:CREAT 35.4 {mg/g_CRE} (Abnormal) MICROALBUMIN,UR 54.7 mg/L (Normal) UR CREAT 154.6 mg/dL (Normal) 19-Xtr-482094:42 TSH 2.57 {uIU/mL} (Normal) Range: 0.34-4.82 :40 CULTURE, URINE URINE CULTURE See Note {CFU/mL} (Normal) Comments: COLONY COUNT 1000-10,000 ORGANISM 1: MIXED GRAM POS & NEG ORGANISMS 70-Txi-769909:36 Urinalysis, Office (22162) UA - BILIRUBIN Negative (Normal) UA - BLOOD Non Hemolyzed Trace (Normal) UA - KETONES Negative mg/dL (Normal) UA - LEUKOCYTE ESTERASE Moderate (Normal) UA - NITRITE Negative (Normal) UA - PH 5.0 (Normal) UA - PROTEIN Negative mg/dL (Normal) UA - SPECIFIC GRAVITY 1.015 (Normal) URINE UROBILINGN NITA TIMED Normal mg/dL (Normal) UA - GLUCOSE Negative (Normal) 67-Yun-452790:20 CULTURE, URINE URINE CULTURE See Note {CFU/mL} (Normal) Comments: COLONY COUNT 25,000-50,000 ORGANISM 1: MIXED GRAM POS & NEG ORGANISMS 57-Kuo-422295:12 Urinalysis, Office (75814) UA - BILIRUBIN Negative (Normal) UA - BLOOD Negative (Normal) UA - GLUCOSE Negative (Normal) UA - KETONES Negative mg/dL (Normal) UA - LEUKOCYTE ESTERASE Small (Normal) UA - NITRITE Negative (Normal) UA - PH 6.0 (Normal) UA - PROTEIN Negative mg/dL (Normal) UA - SPECIFIC GRAVITY 1.005 (Normal) URINE UROBILINGN NITA TIMED Normal mg/dL (Normal) 18-Lar-925509:08 CBCD,SMEAR DIFF CELLS COUNTED 100 (Normal) EOS [...] 47-70 WBC 5.1 K/mm3 (Normal) Range: 4.4-11.0 96-Pdn-377297:08 COMP METABOLIC A/G 1.5 {RATIO} (Normal) Range: [...] Range: 0.34-4.82 :28 Blood Glucose , Office (59882) Blood Glucose , Office 124 (Normal) :28 HgA1C , Office (69684) HgA1C , Office 6.1 % (Normal) Range: 4.6 - 7.1 12-Lub-407616:38 CERULOPLAS 1560 21.3 mg/dL (Normal) Range: 17.9-53.3 Comments: Performed At: [facility] [place] [id number] 68-Tms-372347:38 FERRITIN 189 ng/mL (Normal) Range: 8-252 64-Hsv-827171:38 HEP-[facility] 834969 HB CORE [id number] SeeNote (Normal) Comments: Result: Negative HB SURF [...] evidence exists to indicate HCVinfection. AMENDED REPORT 05/21/081907 HVC Ab previously reported as: RIBA RESULT <TEST NOT PERFORMED> (Normal) :38 LIVER ALB 3.5 g/dL (Normal) Range: 3.4-5.0 ALK P 162 U/L (Abnormal) Range: 50-136 ALT 50 U/L (Normal) Range: 30-65 AST 21 U/L (Normal) Range: 15-37 D BILI 0.05 mg/dL (Normal) Range: 0.00-0.30 T BILI 0.38 mg/dL (Normal) Range: 0.00-1.00 T PROT 6.5 g/dL (Normal) Range: 6.4-8.2 :38 MITOCHN AB 6650 <20.0 {Units} (Normal) Range: 0.0-20.0 Comments: Negative 0.0 - 20.0 Equivocal 20.1 - 24.9 Positive >24.9 . Mitochondrial (M2) Antibodies are found in 90-96% of patients with primary biliary cirrhosis. :03 GGTP 61 U/L (Abnormal) Range: 5-55 :03 LIVER ALB 3.7 g/dL (Normal) Range: 3.4-5.0 ALK P 161 U/L (Abnormal) Range: 50-136 ALT 35 U/L (Normal) Range: 30-65 AST 18 U/L (Normal) Range: 15-37 D BILI 0.06 mg/dL (Normal) Range: 0.00-0.30 T BILI 0.33 mg/dL (Normal) Range: 0.00-1.00 T PROT 6.5 g/dL (Normal) Range: 6.4-8.2 5-Vln-965463:02 THYROID (HP) Radiology Report See Note (Normal) Comments: Exam Number: [id number] THYROID ULTRASOUND HISTORYThyromegaly. High-resolution, real-time linear images [...] is recommended. Reported By: TRUE NAGEL M.D. 75-Krr-719257:05 Blood Glucose , Office (98015) Blood Glucose , Office 135 (Normal) 48-Ker-401789:05 HgA1C , Office (26275) HgA1C , Office 5.6 % (Normal) Range: 4.6 - 7.1 83-Qeb-07605:02 CBCD,SMEAR DIFF ANISO 1+ (Normal) CELLS COUNTED [...] Report See Note (Normal) Comments: Exam Number: [id number] CT BRAIN WITHOUT AND WITH INTRAVENOUS CONTRAST [...] clinically warranted. Reported By: AIDAN MASON M.D. 61-Jpz-815917:30 CBCD Comments: CALL [phone] TO [phone] BASO% 0.8 % (Normal) Range: 0-1 EO% [...] 1+ANISOCYTOSIS WBC 3.8 K/mm3 (Abnormal) Range: 4.4-11.0 05-Tvu-337606:30 COMP METABOLIC Comments: CALL [phone] TO [phone] A/G 1.5 {RATIO} (Normal) Range: 0.9-2.4 ALB [...] T PROT 5.9 g/dL (Abnormal) Range: 6.4-8.2 80-Ztw-725303:30 LDH 206 U/L (Abnormal) Comments: CALL [phone] TO [phone] Range: 100-190 :30 URIC 5.7 mg/dL (Normal) Comments: CALL [phone] TO [phone] Range: 2.6-6.0 :30 CULT, DP WOUND Comments: 2 AERO SWABS WERE COLLECTED...BOTH FROM PORT SITE...RIGHTCHEST ANAEROBIC CULT See Note (Normal) Comments: No anaerobic bacteria isolated. GRAM STAIN See Note (Normal) Comments: GRAM STAIN NO CELLS SEEN NO ORGANISMS SEEN RED CELL STROMA WOUND CULTURE No growth aerobically. (Normal) 7-Evb-262469:15 C DIF TOXIN See Note (Normal) Comments: C. DIFF TOXINS A&B NEGATIVE 27-Jan-20078:41 CBCD BASO% 0.3 % (Normal) Range: 0-1 [...] mg/dL (Abnormal) Range: 40-230 Comments: Performed At: [address] [id number] :41 LDH 211 U/L (Abnormal) Range: 100-190 [...] PT IN CATHLABPrecautions*: NOT APPLICABLE Range: 0.34-4.82 :20 BMP Comments: COMMENTS: BED 13 DR Rodriguez*: NOT APPLICABLE BUN 18 mg/dL (Normal) Range: [...] 3.5-5.1 NA 136 mmol/L (Normal) Range: 136-145 :20 CBCD Comments: COMMENTS: BED 13 DR Rodriguez*: NOT APPLICABLE BAND 9 % (Abnormal) Range: [...] 47-70 WBC 23.9 K/mm3 (Abnormal) Range: 4.4-11.0 42-Hee-86906:30 AFB C&S [id number] Comments: Precautions*: CHEMO PRECAUTIONSSPECIMEN DESCRIPTION: #2 SAME SOURCE AFB CULT See Note Comments: TESTING PERFORMED AT [facility]. ORIGINAL REPORT ON FILE IN LAB CONTAINS ADDITIONAL TEST SITE INFORMATION. (Normal) CULTURE, ACID FAST NO ACID-FAST BACILLI ISOLATED AFTER 6 WEEKS. AFB SMEAR See Note Comments: TESTING PERFORMED AT [facility]. ORIGINAL REPORT ON FILE IN LAB CONTAINS ADDITIONAL TEST SITE INFORMATION. (Normal) ACID FAST BACILLUS SMEAR NO ACID-FAST BACILLI OBSERVED ON SMEAR. 13-D CULT,ALFREDITO See Note Comments: Precautions*: CHEMO PRECAUTIONSSPECIMEN DESCRIPTION: #1 SAME SOURCE ec-2 8482 (Normal) Comments: ` TESTING PERFORMED AT [facility]. ORIGINAL REPORT ON FILE IN LAB CONTAINS ADDITIONAL TEST SITE INFORMATION. 0069 CULTURE, FUNGUS NO YEAST OR MOLD ISOLATED AFTER 4 WEEKS. :30 13-D CYTOLOGY, SeeNote Comments: Result: SEE PATHOLOGY REPORT Specimen submitted to Anatomical Pathology Department for testing. ec-2 BF/CSF (Normal) 0069 :30 18-Hni-71906:30 FLUID P-FLU (Normal) Comments: OPERATION Not noted HISTORY Lymphoma PRE-OPERATIVE DIAGNOSIS Pain injection lower back TISSUE SUBMITTED CSF for cytology DIAGNOSIS (CYTOLOGY) Cerebrospinal fluid (cytospins and cell block): Negat scott for malignant cells. SJ: 09/08/06 CYTOLOGY STUDY The specimen is bloody. CYTOLOGY GROSS Received is 2.5 ml of red cloudy fluid designated CSF. Submitted for cytology study. / SJ: 1 11/08/05 TC:5 ADDENDUM Comment: Sections of cell block are negative for AFB and fungal organisms. Matched controls are appropriate. ADDENDUM SIGNED: MATEO CASTANEDA 09/08/06 REPORT SIGNED: TONI YEPEZ 09/08/06:25 CBCD,SMEAR [...] 47-70 WBC 3.9 K/mm3 (Abnormal) Range: 4.4-11.0 86-Wgy-69164:25 COMP METABOLIC A/G 1.4 {RATIO} (Normal) Range: [...] DRAWN 07/22/06-TEST MISSED Range: 100-190 :51 SPE 388509 A/G RATIO 1.3 (Normal) Range: 0.7-2.0 ALBUMIN [...] Evidenceof monoclonal protein is not apparent.Performed At: [facility], [place] [id number] M-SPIKE SeeNote (Normal) Comments: Result: Not Observed NOTE: Comment (Normal) Comments: Protein electrophoresis scan will follow via mail orcourier. PROTEIN,TOTAL 6.5 g/dL (Normal) Range: 6.0-8.5 :49 Blood Glucose , Office (49248) Blood Glucose , Office 84 (Normal) :49 HgA1C , Office (44182) HgA1C , Office 6.6 % (Normal) Range: [...] eye, right : Follow up tomorrow with [facility] Indication: Pain, eye, right Need for prophylactic [...] tachycardia Planned Observations CBC with auto diff (45080)Indication: Diabetes mellitus type II, controlled On: :03 Request LIPID PANEL (15853)Indication: Diabetes mellitus type II, controlled On: :03 Request METABOLIC PANEL, COMPREHENSIVE (08366)Indication: Diabetes mellitus type II, controlled On: 7-Thy-158409:03 Request HGB A1C (08564)Indication: Diabetes mellitus type II, controlled On: 7-Yys-270730:02 Request TSH (THYROID STIMULATING HORMONE) (74717)Indication: Acquired hypothyroidism On: :02 Request Metabolic Panel, Basic (30021)Indication: Hyponatremia On: 42-Pja-097036:00 Request TSH (72237)Indication: Diabetes mellitus type II, controlled On: :48 Request Vitamin B-12 (cyanocobalamin) (81190)Indication: B12 deficiency On: :45 Request CBC WITH MANUAL DIFF (08561)Indication: B12 deficiency On: :45 Request T3, FREE (TRIDOTHYRONINE) (98898)Indication: Thyroid nodule On: :48 Request Comments: add to labs already drawn T4, FREE (THYROXINE) (14850)Indication: Thyroid nodule On: :47 Request Comments: add to labs already drawn Digoxin (45084)Indication: Cardiomyopathy On: :44 Request LIPID PANEL (87328)Indication: Mixed hyperlipidemia On: :43 Request TSH (22396)Indication: Acquired hypothyroidism On: :43 Request Vitamin D Hydroxy (86801)Indication: Vitamin D deficiency On: :43 Request GYFJX-HVTMXUODLZG-AXPRI (45937)Indication: Fatty liver On: :42 Request VITAMIN B-12 (CYANOCOBALAMIN) (59588)Indication: Fatigue On: :42 Request URINALYSIS, W/ MICRO (94188)Indication: Diabetes mellitus type II, controlled On: 20-Ujz-259093:30 Request MICROALBUMIN: CREATININE RATIO (71808) AND (90832)Indication: Diabetes mellitus type II, controlled On: :29 Request CBC with auto diff (33890)Indication: Diabetes mellitus type II, controlled On: :29 Request METABOLIC PANEL, COMPREHENSIVE (13147)Indication: Diabetes mellitus type II, controlled On: :29 Request HGB A1C (20294)Indication: Diabetes mellitus type II, controlled On: 03-Lsm-277645:29 Request HEPATIC FUNCTION PANEL (51376)Indication: Elevated liver enzymes On: 4-Rvz-130468:38 Request Comments: do in hospital tuesday when get US Metabolic Panel, Comprehensive (61571)Indication: Epigastric pain On: 97-Ipl-910413:54 Request Sed Rate Erythrocyte (64435)Indication: Epigastric pain On: 48-Vjg-668841:54 Request CBC, Platelets & Auto Diff (90368)Indication: Epigastric pain On: 50-Psj-076100:54 Request OVA & PARASITE DIR SMEAR (94205)Indication: Diarrhea On: :53 Request OCCULT BLOOD FECES SCREEN (15100)Indication: Diarrhea On: :53 Request LEUKOCYTE COUNT, FECAL (80469)Indication: Diarrhea On: :53 Request C-DIFFICILE, STOOL (48805)Indication: Diarrhea On: :53 Request GENESIS CULTURE-STOOL (43235)Indication: Diarrhea On: :53 Request Magnesium (52712)Indication: Fatigue On: 98-Puh-771546:42 Request Vitamin B-12 (cyanocobalamin) (08658)Indication: Fatigue On: 45-Vzs-906254:41 Request MICROALBUMIN: CREATININE RATIO (65157) AND (07766)Indication: Diabetes mellitus type II, controlled On: 63-Dsv-378246:40 Request LIPID PANEL (77849)Indication: Mixed hyperlipidemia On: :39 Request CBC W/AUTO DIFF WBC (50302)Indication: Fatty liver On: :30 Request METABOLIC PANEL, COMPREHENSIVE (38324)Indication: Fatty liver On: :30 Request Vitamin D Hydroxy (57391)Indication: Vitamin D deficiency On: :30 Request TSH (74464)Indication: Acquired hypothyroidism On: :30 Request Digoxin (00979)Indication: Cardiomyopathy On: :29 Request LIPASE (46908)Indication: Epigastric pain On: :28 Request AMYLASE (82360)Indication: Epigastric pain On: 55-Nsl-068582:28 Request URINE GENESIS CULTURE-IDENTIFICATN (68161)Indication: Leukocytes in urine On: 36-Oyb-961019:38 Request MICROALBUMIN: CREATININE RATIO (99134) AND (98355)Indication: Essential hypertension with goal blood pressure less than 130/80 On: :58 Request CBC W/AUTO DIFF WBC (94437)Indication: Essential hypertension with goal blood pressure less than 130/80 On: :58 Request METABOLIC PANEL, COMPREHENSIVE (73145)Indication: Essential hypertension with goal blood pressure less than 130/80 On: :58 Request WTAAF-KSTKPWLHJAD-TTDTG (82599)Indication: Abnormal tumor markers On: :57 Request Vitamin D Hydroxy (48072)Indication: Vitamin D deficiency On: :09 Request LIPOPROTEIN, BLD, BY NMR (26865)Indication: Mixed hyperlipidemia On: :09 Request CBC W/AUTO DIFF WBC (42707)Indication: Diabetes mellitus type II, controlled On: :09 Request METABOLIC PANEL, COMPREHENSIVE (46175)Indication: Diabetes mellitus type II, controlled On: :09 Request Potassium Serum (70766)Indication: Hypopotassemia On: :02 Request RXSQK-YEIMZLJZVIY-VGAKE (08839)Indication: Fatty liver On: :57 Request MICROALBUMIN: CREATININE RATIO (62763) AND (26120)Indication: Essential hypertension with goal blood pressure less than 130/80 On: :45 Request CBC W/AUTO DIFF WBC (78926)Indication: Essential hypertension with goal blood pressure less than 130/80 On: 80-Bja-59931:45 Request METABOLIC PANEL, COMPREHENSIVE (17665)Indication: Essential hypertension with goal blood pressure less than 130/80 On: 66-Uis-20632:45 Request Vitamin D Hydroxy (67711)Indication: Vitamin D deficiency On: :45 Request TSH (02134)Indication: Acquired hypothyroidism On: :45 Request LIPID PANEL (80542)Indication: Mixed hyperlipidemia On: :45 Request CBC W/AUTO DIFF WBC (09597)Indication: Diabetes mellitus type II, controlled On: 28-Syh-013143:28 Request RMQSA-RAWNWXSJQKT-OCJDT (01790)Indication: Fatty liver On: :03 Request METABOLIC PANEL, COMPREHENSIVE (94502)Indication: Mixed hyperlipidemia On: :55 Request LIPOPROTEIN, BLD, BY NMR (17847)Indication: Mixed hyperlipidemia On: :55 Request Metabolic Panel, Basic (65223)Indication: Hypopotassemia On: :55 Request Comments: 10 days CBC (AUTO) (61493)Indication: Uncontrolled type II diabetes mellitus On: 11-Fqt-538283:03 Request Vitamin D Hydroxy (58495)Indication: Vitamin D deficiency On: 54-Ehc-703659:03 Request MICROALBUMIN: CREATININE RATIO (67024) AND (66612)Indication: Uncontrolled type II diabetes mellitus On: 59-Ytx-583279:02 Request METABOLIC PANEL, COMPREHENSIVE (52450)Indication: Essential hypertension with goal blood pressure less than 130/80 On: 13-Ptq-117180:02 Request DSUSS-UCYGZJRSWZM-LAXGA (04451)Indication: Fatty liver On: : Request LIPID PANEL (90320)Indication: Mixed hyperlipidemia On: : Request TSH (85076)Indication: Thyroid nodule On: : Request CBC W/AUTO DIFF WBC (02974)Indication: Uncontrolled type II diabetes mellitus On: :47 Request METABOLIC PANEL, COMPREHENSIVE (16033)Indication: Uncontrolled type II diabetes mellitus On: :47 Request LIPID PANEL (28715)Indication: Mixed hyperlipidemia On: :47 Request Vitamin D Hydroxy (63190)Indication: Vitamin D deficiency On: :47 Request NHQGA-ORISMZNDSKU-XNGYK (23169)Indication: Fatty liver On: : Request CBC W/AUTO DIFF WBC (56531)Indication: Uncontrolled type II diabetes mellitus On: :26 Request LIPID PANEL (68049)Indication: Mixed hyperlipidemia On: :25 Request MICROALBUMIN: CREATININE RATIO (49383) AND (99068)Indication: Uncontrolled type II diabetes mellitus On: :25 Request TSH (08430)Indication: Acquired hypothyroidism On: :25 Request METABOLIC PANEL, COMPREHENSIVE (93638)Indication: Essential hypertension with goal blood pressure less than 130/80 On: :25 Request Vitamin D Hydroxy (75013)Indication: Vitamin D deficiency On: :25 Request CALCIFEDIOL (08513)Indication: Vitamin D deficiency On: :44 Request Comments: to be done Jun 2015 after done with ergocalciferol URINE GENESIS CULTURE (NITA COL COUNT) (58957)Indication: UTI (lower urinary tract infection) On: 4-Tvm-987366:22 Request LIPID PANEL (15267)Indication: Mixed hyperlipidemia On: 0-Ael-438587:15 Request CBC W/AUTO DIFF WBC (70543)Indication: Uncontrolled type II diabetes mellitus On: 2-Ukp-951676:14 Request METABOLIC PANEL, COMPREHENSIVE (34350)Indication: Uncontrolled type II diabetes mellitus On: 5-Utm-418073:14 Request TSH (40881)Indication: Acquired hypothyroidism On: 6-Pgv-568416:14 Request SENQO-CWXLIEEXUBA-GTTSU (05411)Indication: Fatty liver On: 4-Dbr-513131:14 Request CBC, Platelets & Auto Diff (95051)Indication: HX, PERSONAL, MALIGNANCY, LYMPHATIC NEC On: 93-Ewp-41510:07 Request CBC WITH MANUAL DIFF (71695)Indication: Abnormal glucose tolerance test On: :33 Request MICROALBUMIN: CREATININE RATIO (32879) AND (76712)Indication: Abnormal glucose tolerance test On: :33 Request LIPID PANEL (67463)Indication: Mixed hyperlipidemia On: 27-Jul-20139:31 Request METABOLIC PANEL, COMPREHENSIVE (75714)Indication: Abnormal glucose tolerance test On: 27-Jul-20139:31 Request URINE GENESIS CULTURE-NITA COL COUNT (22518)Indication: Dysuria On: 54-Viw-350147:03 Request RETICULOCYTE COUNT (07472)Indication: Anemia On: 09-Xct-52882:37 Request Iron (34818)Indication: Anemia On: 37-Rnd-83399:37 Request Ferritin (93133)Indication: Anemia On: 02-Igf-66869:37 Request CBC (Auto) (31783)Indication: Anemia On: 96-Jbo-44143:37 Request CBC, Platelets & Auto Diff (78665)Indication: Fever On: :03 Request Metabolic Panel, Comprehensive (17002)Indication: Fever On: 42-Tnr-03418:03 Request HgA1C , Office (31135)Indication: Abnormal glucose tolerance test On: :55 Request CBC WITH MANUAL DIFF ([id number])Indication: Abnormal glucose tolerance test On: 03-Rea-139113:53 Request METABOLIC PANEL, COMPREHENSIVE (56175)Indication: Abnormal glucose tolerance test On: :53 Request LIPID PANEL ([id number])Indication: Mixed hyperlipidemia On: :53 Request DXLWT-UMFPMNUEEAN-JIFFB ([id number])Indication: Fatty liver On: :53 Request PTT (Activated Partial Thromboplastin Time) ([id number])Indication: Fatty liver On: :53 Request PT (Prothrobim Time) ([id number])Indication: Fatty liver On: :53 Request MICROALBUMIN: CREATININE RATIO (68666) AND (57925)Indication: Abnormal glucose tolerance test On: :49 Request Anti-TPO Antibody (89506)Indication: Acquired hypothyroidism On: 92-Eic-588679:14 Request Comments: 1 month TSH (26088)Indication: Acquired hypothyroidism On: 79-Owg-056503:13 Request Comments: 1 month T4, FREE (THYROXINE) (22303)Indication: Acquired hypothyroidism On: :13 Request Comments: 1 month T3, FREE (TRIDOTHYRONINE) ([id number])Indication: Acquired hypothyroidism On: 41-Glx-087965:13 Request Comments: 1 month CBC WITH MANUAL DIFF ([id number])Indication: Abnormal glucose tolerance test On: :38 Request METABOLIC PANEL, COMPREHENSIVE (63456)Indication: Abnormal glucose tolerance test On: :38 Request LIPID PANEL (57990)Indication: Mixed hyperlipidemia On: :38 Request MICROALBUMIN: CREATININE RATIO ([id number]) AND ([id number])Indication: Abnormal glucose tolerance test On: 57-Aah-141063:56 Request CBC WITH MANUAL DIFF ([id number])Indication: Elevated LFTs On: 16-Jlk-791563:56 Request METABOLIC PANEL, COMPREHENSIVE ([id number])Indication: Elevated LFTs On: 06-Fsi-663622:56 Request LIPID PANEL ([id number])Indication: Mixed hyperlipidemia On: 15-Pod-162402:56 Request TSH ([id number])Indication: Acquired hypothyroidism On: 05-Fyn-609298:56 Request CBC WITH MANUAL DIFF ([id number])Indication: Essential hypertension with goal blood pressure less than 130/80 On: :34 Request TSH ([id number])Indication: Acquired hypothyroidism On: :34 Request METABOLIC PANEL, COMPREHENSIVE ([id number])Indication: Fatty liver On: :33 Request LIPID PANEL ([id number])Indication: Mixed hyperlipidemia On: :33 Request MICROALBUMIN: CREATININE RATIO ([id number]) AND ([id number])Indication: Uncontrolled type II diabetes mellitus On: :46 Request TSH ([id number])Indication: Acquired hypothyroidism On: :46 Request LIPID PANEL ([id number])Indication: Mixed hyperlipidemia On: :45 Request METABOLIC PANEL, COMPREHENSIVE ([id number])Indication: Elevated LFTs On: :45 Request HgA1C , Office ([id number])Indication: Uncontrolled type II diabetes mellitus On: :28 Request URINE GENESIS CULTURE-NITA COL COUNT ([id number])Indication: Cystitis, acute On: :43 Request URINE GENESIS CULTURE-IDENTIFICATN (06060)Indication: Dysuria On: :10 Request CBC WITH MANUAL DIFF ([id number])Indication: Headache On: 69-New-530862:56 Request METABOLIC PANEL, COMPREHENSIVE ([id number])Indication: Headache On: 09-Ipy-447374:56 Request LIPID PANEL ([id number])Indication: Mixed hyperlipidemia On: 31-Ydl-951700:56 Request TSH ([id number])Indication: Acquired hypothyroidism On: 09-Lfe-230169:56 Request METABOLIC PANEL, COMPREHENSIVE ([id number])Indication: Uncontrolled type II diabetes mellitus On: 46-Fjz-289287:28 Request HEPATIC FUNCTION PANEL ([id number])Indication: Mixed hyperlipidemia On: 06-Ifv-885510:28 Request LIPID PANEL ([id number])Indication: Mixed hyperlipidemia On: 87-Lsg-843076:28 Request LIPID PANEL ([id number])Indication: Mixed hyperlipidemia On: :39 Request MICROALBUMIN: CREATININE RATIO ([id number]) AND ([id number])Indication: Uncontrolled type II diabetes mellitus On: :39 Request CBC WITH MANUAL DIFF ([id number])Indication: Essential hypertension with goal blood pressure less than 130/80 On: :39 Request METABOLIC PANEL, COMPREHENSIVE ([id number])Indication: Elevated LFTs On: 26-Jun-20109:39 Request TSH ([id number])Indication: Acquired hypothyroidism On: 26-Jun-20109:36 Request TSH ([id number])Indication: Thyroid nodule On: 82-Qcm-085252:20 Request METABOLIC PANEL, COMPREHENSIVE ([id number])Indication: Elevated LFTs On: 15-Skk-728129:19 Request LIPID PANEL ([id number])Indication: Mixed hyperlipidemia On: 23-Xsl-499698:19 Request C-REACTIVE PROTEIN ([id number])Indication: Abnormal findings on diagnostic imaging of other specified body structures On: 91-Tvu-337165:02 Request SED RATE ERYTHROCYTE ([id number])Indication: Abnormal findings on diagnostic imaging of other specified body structures On: 24-Pea-041442: Request LDH (LD) (LACTATE DEHYDROGENASE) ([id number])Indication: Abnormal findings on diagnostic imaging of other specified body structures On: 46-Qqf-156403: Request Urine Protein Electrophoresis (UPEP) ([id number])Indication: Abnormal findings on diagnostic imaging of other specified body structures On: 32-Jzw-448865: Request Serum Protein Electrophoresis (SPEP) ([id number])Indication: Abnormal findings on diagnostic imaging of other specified body structures On: 95-Kgq-877203:02 Request METABOLIC PANEL, COMPREHENSIVE ([id number])Indication: Diabetes mellitus type II, controlled On: :19 Request LIPID PANEL ([id number])Indication: Mixed hyperlipidemia On: :19 Request URINE GENESIS CULTURE-NITA COL COUNT ([id number])Indication: Dysuria On: 07-Tco-902856:58 Request HEPATIC FUNCTION PANEL ([id number])Indication: Elevated LFTs On: 84-Aav-209425:18 Request LIPID PANEL ([id number])Indication: Mixed hyperlipidemia On: 10-Ecq-050847:17 Request MICROALBUMIN: CREATININE RATIO ([id number]) AND ([id number])Indication: Uncontrolled type II diabetes mellitus On: 3-Soo-111682:47 Request CBC WITH MANUAL DIFF ([id number])Indication: Uncontrolled type II diabetes mellitus On: 3-Lgp-065814:47 Request METABOLIC PANEL, COMPREHENSIVE ([id number])Indication: Uncontrolled type II diabetes mellitus On: 2-Vpx-142354:47 Request HEPATIC FUNCTION PANEL ([id number])Indication: Elevated LFTs On: 4-Kdo-575284:45 Request LIPID PANEL ([id number])Indication: Mixed hyperlipidemia On: 0-Xvr-499429:44 Request HEPATIC FUNCTION PANEL ([id number])Indication: Fatty liver On: 5-Fsi-166268:30 Request LIPID PANEL ([id number])Indication: Mixed hyperlipidemia On: 2-Tjr-215720:30 Request URINE GENESIS CULTURE (NITA COL COUNT) ([id number])Indication: Low back pain potentially associated with radiculopathy On: 66-Nib-617068:03 Request MICROALBUMIN: CREATININE RATIO ([id number]) AND ([id number])Indication: Dysuria On: 73-Gnm-276553:05 Request LIPID PANEL ([id number])Indication: Dysuria On: 99-Vpg-215191:05 Request TSH ([id number])Indication: Dysuria On: 00-Stp-519707:05 Request METABOLIC PANEL, COMPREHENSIVE ([id number])Indication: Dysuria On: 59-Ufm-289856:04 Request CBC WITH MANUAL DIFF ([id number])Indication: Dysuria On: 87-Ujy-995392:04 Request URINE GENESIS CULTURE-NITA COL COUNT ([id number])Indication: Dysuria On: 01-Evb-930534:45 Request URINE GENESIS CULTURE (NITA COL COUNT) ([id number])Indication: Dysuria On: 54-Yua-207176:17 Request METABOLIC PANEL, COMPREHENSIVE ([id number])Indication: Fatty liver On: 72-Imi-34124:58 Request Magnesium ([id number])Indication: Palpitations On: 74-Sqo-90698:51 Request TSH ([id number])Indication: Palpitations On: 31-Ygr-50547:51 Request METABOLIC PANEL, COMPREHENSIVE ([id number])Indication: Palpitations On: 58-Tsd-37971:51 Request CBC WITH MANUAL DIFF ([id number])Indication: Palpitations On: 18-Dkb-76515:51 Request GGT (Gamma Glutamyl Transferase) ([id number])Indication: Elevated LFTs On: 76-Wqz-147641:16 Request HEPATIC FUNCTION PANEL ([id number])Indication: Elevated LFTs On: 32-Dhz-205186:16 Request VITAMIN B-12 (CYANOCOBALAMIN) ([id number])Indication: Fatigue On: 65-Yfq-89239:23 Request MICROALBUMIN URINE QUANT ([id number])Indication: Diabetes mellitus type II, controlled On: 14-Vau-23042:22 Request TSH ([id number])Indication: Fatigue On: :22 Request CBC WITH MANUAL DIFF ([id number])Indication: Diabetes mellitus type II, controlled On: :22 Request METABOLIC PANEL, COMPREHENSIVE ([id number])Indication: Diabetes mellitus type II, controlled On: 78-Etl-67911:22 Request LIPID PANEL ([id number])Indication: Mixed hyperlipidemia On: :22 Request HEPATIC FUNCTION PANEL ([id number])Indication: Mixed hyperlipidemia On: :48 Request LIPID PANEL ([id number])Indication: Mixed hyperlipidemia On: :48 Request Comments: in 3 mos Planned Encounters Medical; [facility] 1 Month FU - On: 30-Aug-2018 11:00 [facility] Fast DO, Sangeetha A Fast DO, Sangeetha A Planned Procedures Flu Vaccine (Quadrivalent) 78525Ww: On: 21-Jul-2018 Intent Fast DO, Sangeetha A Fast DO, Sangeetha A SCREENING DIGITAL TOMOSYNTHESIS OF On: 21-Jul-2018 Intent BREAST ([id number])By: Fast DO, Sangeetha A Fast DO, Sangeetha A B 12 Injection, 1000 mcg ([id number])By: On: 31-May-2018 Intent Fast DO, Sangeetha A Fast DO, Sangeetha A Comments: Lot#[id number] EXP:[id number] given:left deltoid Given By: clarita albright ABN signed CT - Abdomen (IV Contrast Needed)By: On: 31-May-2018 Intent Fast DO, Sangeetha A Fast DO, Sangeetha A Doppler Ultrasound OtherBy: Fast DO, On: 19-May-2018 Intent Sangeetha A Fast DO, Sangeetha A Comments: left arm ULTRASOUND OF LIVER ([id number])By: On: 24-Feb-2018 Intent Blanca KING, Jennifer Gregory PFT - CompleteBy: Fast DO, Sangeetha A On: 21-Oct-2017 Intent Fast DO, Sangeetha A Comments: at [facility] SCREENING DIGITAL TOMOSYNTHESIS OF On: 21-Oct-2017 Intent BREAST ([id number])By: Fast DO, Sangeetha A Comments: end of oct Fast DO, Sangeetha A EsophagramBy: Fast DO, Sangeetha A Fast On: 21-Oct-2017 Intent DO, Sangeetha A Comments: with 12 mm tablet ELECTROCARDIOGRAM, COMPLETE (ECG) On: 21-Oct-2017 Intent ([id number])By: Fast DO, Sangeetha A Fast DO, Sangeetha A Flu Vaccine (Quadrivalent) 08714Ug: On: 07-Jun-2017 Intent Fast DO, Sangeetha A Fast DO, Sangeetha A Comments: InfluenzaLot #[id number]/18/18Site-L dltd, IMDose prefilled syringeVIS and ABN signedgiven by:NATALEE guillen CT - Abdomen (IV Contrast Needed)By: On: [...] DO, Sangeetha A DEXA SCAN AXIAL SKELETON ([id number])By: On: 16-Aug-2016 Intent Fast DO, Sangeetha A Fast DO, Sangeetha A MAMMOGRAM, SCREENING, BOTH BREAST On: 16-Aug-2016 Intent ([id number])By: Fast DO, Sangeetha A Fast DO, Sangeetha A ELECTROCARDIOGRAM, COMPLETE (ECG) On: 16-Aug-2016 Intent ([id number])By: Fast DO, Sangeetha A Fast DO, Sangeetha A Flu Vaccine (Quadrivalent) 80470Tq: On: 16-Aug-2016 Intent Fast DO, Sangeetha A Fast DO, Sangeetha A Comments: FLUlot: [id number]:02/09site:Lt deltoidroute:IMdose:.[facility]ml[facility] [place] ADMINIST[facility]ATION OF INFLUENZA VIRUS On: 16-Aug-2016 Intent VACCINE (G0008)By: Fast DO, Sangeetha A Fast DO, Sangeetha A Ultrasound - ThyroidBy: Fast DO, On: 10-Nov-2015 Intent Sangeetha A Fast DO, Sangeetha A Ultrasound - LiverBy: Fast DO, Sangeetha On: 10-Nov-2015 Intent A Fast DO, Sangeetha A Flu Vaccine (Quadrivalent) 52936Es: On: 08-Aug-2015 Intent Fast DO, Sangeetha A Fast DO, Sangeetha A Comments: Lot #[id number]-L dltd, IMDose prefilled syringegiven by:SIMONE Jasso and ABN signed MAMMOGRAM, SCREENING, BOTH BREAST On: 08-Aug-2015 Intent ([id number])By: Fast DO, Sangeetha A Fast DO, Sangeetha A Ultrasound - ThyroidBy: Fast DO, On: 08-Aug-2015 Intent Sangeetha A Fast DO, Sangeetha A Ultrasound - LiverBy: Fast DO, Sangeetha On: 08-Aug-2015 Intent A Fast DO, Sangeetha A ADMINISTRATION OF PNEUMOCOCCAL On: 01-Nov-2014 Intent VACCINE (G0009)By: Fast DO, Sangeetha A Fast DO, Sangeetha A PNEUM VAC ADLT/IMUMNOSPR, SBC/INTRM On: 01-Nov-2014 Intent ([id number])By: Fast DO, Sangeetha A Fast DO, Comments: Lot:[id number]:02/29/16Dose:0.5mgRoute:imSite:l armGiven By:BATSHEVA signed Sangeetha A Ultrasound - LiverBy: Fast DO, Sangeetha On: 05-Jul-2014 Intent A Fast DO, Sangeetha A BILATERAL MAMMOGRAMS ([id number])By: Fast On: 05-Jul-2014 Intent DO, Sangeetha A Fast DO, Sangeetha A Ultrasound - ThyroidBy: Fast DO, On: 05-Jul-2014 Intent Sangeetha A Fast DO, Sangeetha A ADMINISTRATION OF INFLUENZA VIRUS On: 05-Jul-2014 Intent VACCINE (G0008)By: Fast DO, Sangeetha A Comments: Influenzalot:[id number]:03/25/2015dose:0.5mLRoute: IMlocation:R armgiven by:markia Fast DO, Sangeetha A FLU VAC, SPLIT, >3 YEARS, INTRAMUSC On: 05-Jul-2014 Intent ([id number])By: Tavon DO, Sangeetha A Fast DO, Sangeetha A INFUSION, NORMAL SALINE SOLUTION , On: 15-Apr-2014 Intent 250 CC ([id number])By: Angelina Winn CNP Rocephon Injection, 1 Gm (J0696)By: On: 15-Apr-2014 Intent Angelina Winn CNP Comments: Rocephin 1gmLot #[id number]. [id number] in R hand x 1 stick with a 22 gauge butterfly. Patient tolerated well with no c/o voiced. No infiltrate noted. Discontinued following infusion with no ecchymosis noted. Tanya. Radiology - Cervical SpineBy: Fast On: 06-Feb-2014 Intent DO, Sangeetha A Fast DO, Sangeetha A Eprescribed prescriptions ([id number])By: On: 06-Feb-2014 Intent Fast DO, Sangeetha A Fast DO, Sangeetha A CT - Brain/Head (IV Contrast On: 08-Jan-2014 Intent Needed)By: Fast DO, Sangeetha A Fast DO, Sangeetha A ADMINISTRATION OF INFLUENZA VIRUS On: 27-Jul-2013 Intent VACCINE (G0008)By: Fast DO, Sangeetha A Fast DO, Sangeetha A FLU VAC, SPLIT, >3 YEARS, INTRAMUSC On: 27-Jul-2013 Intent ([id number])By: Fast DO, Sangeetha A Fast DO, Sangeetha A Eprescribed prescriptions (G8553)By: On: 04-Jun-2013 Intent Delisa Melendez LPN SPECIMEN HANDLING/TRANSPORT On: 04-Jun-2013 Intent ([id number])By: Delisa Melendez LPN INFUSION, NORMAL SALINE SOLUTION , On: 15-Feb-2013 Intent 1000 CC (Special Coverage Comments: 500 cc Instructions Apply. See MCM: 2049) ([id number])By: Jennifer Rios MD HYDRATION IV INFUSION, INIT On: 15-Feb-2013 Intent (39789)By: Jennifer Rios MD Ultrasound - ThyroidBy: Fast DO, On: 19-Jan-2013 Intent Sangeetha A Fast DO, Sangeetha A MAMMOGRAM, SCREENING, BOTH BREASTS On: 19-Jan-2013 Intent ([id number])By: Fast DO, Sangeetha A Fast DO, Comments: due in january Sangeetha A Eprescribed prescriptions (G8553)By: On: 19-Jan-2013 Intent Isabella Grigsby Pulse Oximetry (40339)By: Seb, On: 29-Sep-2012 Intent Isabella Comments: 98% [...] MAMMOGRAM, SCREENING, BOTH BREASTS On: 24-Jan-2012 Intent (30474)By: Fast DO, Sangeetha A Fast DO, Sangeetha A TDAP VACCINE >7 IM (39214)By: Fast On: 04-Oct-2011 Intent DO, Sangeetha A Fast DO, Sangeetha A Comments: Lot:[id number]:08/12/13Amt:prefilledRoute:IMSite:right deltGiven By: NATALEE Spence Aerosol Treatment (19323)By: Blanca On: 26-Aug-2011 Intent Jennifer KING Pulse Oximetry (30209)By: Blanca On: 26-Aug-2011 Intent Jennifer KING SPECIMEN HANDLING/TRANSPORT On: 23-Jul-2011 Intent (03902)By: Delisa Melendez LPN FLU VAC, SPLIT, >3 YEARS, INTRAMUSC On: 05-Jul-2011 Intent (40448)By: Isabella Grigsby Comments: Lot #[id number]/20/12Site-left deltoidgiven by: Lisa Bello LPN Ultrasound - ThyroidBy: Fast DO, On: 05-Jul-2011 Intent Sangeetha A Fast DO, Sangeetha A MAMMOGRAM, SCREENING, BOTH BREASTS On: 05-Jul-2011 Intent ([id number])By: Fast DO, Sangeetha A Fast DO, Sangeetha A ADMINISTRATION OF INFLUENZA VIRUS On: 05-Jul-2011 Intent VACCINE (G0008)By: Isabella Grigsby Eprescribed prescriptions (G8553)By: On: 04-Jun-[address] CT - Brain/HeadBy: Fast DO, Sangeetha A On: 07-Oct-2010 Intent Fast DO, Sangeetha A Comments: with and without contrast MAMMOGRAM, SCREENING, BOTH BREASTS On: 26-Jun-2010 Intent ([id number])By: Fast DO, Sangeetha A Fast DO, Sangeetha A ADMINISTRATION OF INFLUENZA VIRUS On: 26-Jun-2010 Intent VACCINE (G0008)By: Tvaon DAVIS, Sangeetha A Fast DO, Sangeetha A FLU VAC, SPLIT, >3 YEARS, INTRAMUSC On: 26-Jun-2010 Intent ([id number])By: Tavon DAVIS, Sangeetha A Fast DO, Comments: Lot:[id number]:12/2010Dose:0.5mlRoute:IMSite:Left DeltoidGiven by: HEIDI Alberto A Ultrasound - ThyroidBy: Tavon DAVIS, On: 07-Jan-2010 Intent Sangeetha A Fast DO, Sangeetha A CT - Spine/CervicalBy: Tavon DO, On: 15-Dec-2009 Intent Sangeetha A Fast DO, Sangeetha A Comments: 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 -- need to rule out Pulse Oximetry ([id number])By: Tavon DAVIS, On: 09-Jul-2009 Intent Sangeetha A Fast DO, Sangeetha A Spirometry (92181)By: Tavon DAVIS, On: 10-Jul-2009 Intent Sangeetha A Fast DO, Sangeetha A Comments: good effort and curve- mild restriciton Radiology - Chest- PA and LatBy: On: 09-Jul-2009 Intent Tavon DAVIS, Sangeetha A Fast DO, Sangeetha A Pulse Oximetry (31837)By: Tavon DAVIS, On: 10-Jul-2009 Intent Sangeetha A Fast DO, Sangeetha A Comments: 98 FLU VAC, SPLIT, >3 YEARS, INTRAMUSC On: 09-Jul-2009 Intent ([id number])By: Isabella Grigsby Comments: Lot #[id number]/2010Site-right deltoidDose0.5mlgiven by Juventino Nye LPN IMMUNIZ ADMNIN, 1 VAC, SNGL/COMBO On: 09-Jul-2009 Intent ([id number])By: Isabella Grigsby EKG (31708)By: Tavon DAVIS, Sangeetha A On: 10-Oct-2008 Intent Fast DO, Sangeetha A Comments: ekg showed sinus tachy,, left axis, no acute st/t wave changes poor r wave progression pvc Echo CompleteBy: Tavon DO, Sangeetha A On: 10-Oct-2008 Intent Fast DO, Sangeetha A Nuclear Stress Test/Stress On: 10-Oct-2008 Intent SPECT/AdenosineBy: Tavon DAVIS, Sangeetha A Fast DO, Sangeetha A MRI - Lumbar SpineBy: Tavon DAVIS Sangeetha On: 10-Oct-2008 Intent A Fast DO, Sangeetha A Comments: 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- please do archie and also do in open mri- IMMUNIZ ADMNIN, 1 VAC, SNGL/COMBO On: 10-Jul-2008 Intent ([id number])By: Arpan Irvin DOa A Tavon DO, Sangeetha A FLU VAC, SPLIT, >3 YEARS, INTRAMUSC On: 10-Jul-2008 Intent ([id number])By: Tavon DAVIS Sangeetha A Fast DO, Comments: injection given in left deltoid, pt tolerated welllot # [id number] Sangeetha A Holter Monitor 24 hrsBy: Tavon DO, On: 10-Jul-2008 Intent Sangeetha A Fast DO, Sangeetha A EKG (17141)By: Marlene Reddy On: 10-Jul-2008 Intent Comments: ekg showed normal sinus rhythym, normal axis, no acute st/t wave changes sinus tach - no acute changes Ultrasound - ThyroidBy: Tavon DAVIS, On: 20-Feb-2008 Intent Sangeetha A Tavon DO, Sangeetha A CT - Brain/Head (IV Contrast On: 19-Jan-2008 Intent Needed)By: Tavon DAVIS, Sangeetha A Fast DO, Sangeetha A Nuclear Stress TestBy: Tavon DAVIS, On: 06-Jun-2006 Intent Sangeetha A Tavon DO, Sangeetha A Planned Medications INFUSION, NORMAL SALINE SOLUTION , 1000 CC Ordered: 15-Feb-2013 Pending Jennifer Rios MD INFUSION, NORMAL SALINE SOLUTION , 250 CC Ordered: 15-Apr-2014 Pending Angelina Winn CNP INJECTION, CEFTRIAXONE SODIUM, PER 250 MG Ordered: 15-Apr-2014 Pending Angelina Winn CNP Vitamin B-12 1000 MCG/ML Injection Solution Ordered: 31-May-2018 Pending Sangeetha Irvin DO DO, Sangeetha A Instructions Name Dates Details [...] heart) and other (blood work). Date: (07/14 and End: 23-Jul-2018 22:41 /24 blood work). Note [...] using tylenol and will go back to [place] if need be for shot-sugar fine-n foot [...] Note for Follow up hospital: so mom presen t and apparently prior to her hospitalization she [...] off metformin and lisinopril [place] then had multiple falls sent back to hospital and transferred to [facility] there for few weeks then to [facility] had lots of pt- and doing [...] [ADDITIONAL REASON] Follow up tests - Date: (mayAugust 2017). Encounter Diagnosis: Nonsmoker, BMI 34.0-34.9,adult, Diabetes [...] Patient has been compliant with instructions. Current me End: 01-Mar-2017 9:26 dication use: no side [...] anxiety and depression. Note for Physical exam: [facility] Well[facility] Physical- she is down 107 [...] from Need for immunizati on against influenza), [facility], Encounter for screening mammogram for [...] Reason for hospitalization abdominal pain (Went to [facility] on 02/28/15). Hospitalization details include: abnormal [...] previously evaluated by a primary physician (at [facility]- Dr Reyes ). Presentation included lid [...] meds and check sugars- she is seeing yfnjesu and this is helping her mood- has followup in [place] may 04 - her weight down 20 [...] sees heart failure doctor next week at [facility] - -- mood ebs and flows- [...] has been compliant with instructions. Curre End: 24-Jan-2012 10:56 nt medication use: no [...] just trying to manage the pain- with zoraida they are working todether - dr nicolas [...] also sent her to [facility] and he di End: 22-Nov-2011 21:49 dnt do surgery- it [...] has been compliant with instructions. Curre End: 04-Oct-2011 9:51 nt medication use: no [...] is seeing zoraida for back issues- sees rosetta wed- she got rid of bronchial infection and [...] or less). 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
--- OUTSIDE RECORDS SUMMARY | 2018-10-21 22:31 | XMS RPT_ITS | Continuity of Care Document ---
:1965 Author Organization [facility] Address [facility] [address] [address] Phone Care Team Providers Name Role Phone [...] Comments: chronic stable-continue present regimen Status: Active Orthopnea (R06.01, 786.02) Status: Active Paroxysmal tachycardia (I47.9, 427.2) Status: Active Postmenopausal (Renamed from Postmenopausal status) (Z78.0, V49.81) Status: Active pvcs and tachycardia Status: Active SOB (shortness of breath) (R06.02, 786.05) Status: Active Syncope (R55, 780.2) Status: Active [...] Sangeetha A Start : 28-Jul-2017 Active Comments:E11.9 COREG, 6.25MG (Oral Tablet) 1/2 Tablet bid [...] days Quantity: 30 {Capsule} Refills: 3 Ordered:05-Jun-2018 Sangeetha DAVIS DO, Sangeetha A Start : 05-Jun-2018 Active Eliquis 5 MG Oral Tablet 1 (one) Tablet bid for 30 days Quantity: 60 {Tablet} Refills: 0 Ordered:14-Aug-2018 Sangeetha DAVIS DO, Sangeetha A Start : 14-Aug-2018 Active Gabapentin 100 MG Oral Capsule 1 (one) Capsule bid for 30 days Quantity: 60 {Capsule} Refills: 3 Ordered:05-Jun-2018 Sangeetha DAVIS DO, Sangeetha A Start : 05-Jun-2018 Active Haloperidol 1 MG Oral Tablet 1 (one) Tablet am 1/2 pm for 30 days Quantity: 60 {Tablet} Refills: 4 Ordered:21-Jul-2018 Sangeetha DAVIS DO, Sangeetha A Start : 21-Jul-2018 Active Klor-Con M20 20 MEQ Oral Tablet Extended Release 3 (three) Tablet ER daily for 30 days Quantity: 90 {Tablet} Refills: 3 Ordered:29-Aug-2017 Sangeetha DAVIS DO, Sangeetha A Start : 29-Aug-2017 Active LamoTRIgine 150 MG Oral Tablet 1 (one) Tablet qhs for 30 days Quantity: 30 {Tablet} Refills: 3 Ordered:07-Jun-2018 Sangeetha DAVIS DO, Sangeetha A Start : 07-Jun-2018 Active Lasix 40 MG Oral Tablet 1 (one) Tablet 2 in the am and 1 in pm for 30 days Quantity: 30 {Tablet} Refills: 4 Ordered:04-Sep-2018 Sangeetha DAVIS DO, Sangeetha A Start : 04-Sep-2018 Active MELATONIN, 3MG (Oral Capsule) 1 cap daily (3 MG) Active Mirtazapine 15 MG Oral Tablet 1/2 Tablet qhs for 0 days Quantity: 30 {Tablet} Refills: 0 Ordered:14-Aug-2018 Sangeetha DAVIS DO, Sangeetha A Start : 14-Aug-2018 Active [...] days Quantity: 30 {Tablet} Refills: 3 Ordered:14-Aug-2018 Sangeetha AFbud DAVIS Sangeetha A Start : 14-Aug-2018 Active Synthroid 75 MCG Oral Tablet 1 (one) Tablet qd and 2 tabs on tuesday for 90 days Quantity: 102 {Tablet} Refills: 3 Ordered:21-Jul-2018 Tavon DAVISSangeetha DO Sangeetha A Start : 21-Jul-2018 Active Vitamin D3 5000 UNIT Oral Capsule 1 (one) Capsule Capsule qod for 0 days Quantity: 30 {Capsule} Refills: 3 Ordered:01-Mar-2017 Sangeetha DO, Debra A Start : 01-Mar-2017 Active Zofran 4 MG Oral Tablet 1 (one) Tablet Tablet every 8 hours prn nausea vomting for 0 days Quantity: 10 {Tablet} Refills: 0 Ordered:23-Feb-2018 Long BREAD OVEN OPERATOR, Amelia L Start : 23-Feb-2018 Active AMITIZA, 24MCG (Oral Capsule) 1 Capsule Capsule bid for 0 days Quantity: 32 {Capsule} Refills: 0 Ordered:09-Feb-2016 Elodia Baxter Start : 27-Jul-2013 End : 09-Feb-2016 Inactive Amitriptyline HCl 10 MG Oral Tablet 1-2 Tablet qhs prn for 0 days Quantity: 60 {Tablet} Refills: 3 Ordered:19-May-2018 Long BREAD OVEN OPERATOR, Amelia L Start : 21-Oct-2017 End : 19-May-2018 Inactive Amoxicillin 875 MG Oral Tablet 1 (one) Tablet bid for 10 days Quantity: 20 {Tablet} Refills: 0 Ordered:21-Oct-2017 Tavon DAVISArpana Dulce Maria DAVIS Sangeetha A Start : 21-Oct-2017 End : 31-Oct-2017 Inactive AVAPRO, 150MG (Oral Tablet) 1 qd for 0 days Refills: 0 Ordered:02-Dec-2006 Tavon DAVISArpana AFast DO, Sangeetha A End : 02-Dec-2006 [...] Start : 05-Jul-2011 End : 04-Aug-2011 Inactive Cephalexin 500 MG Oral Capsule 1 (one) Capsule Capsule tid for 0 days Quantity: 21 {Capsule} Refills: 0 Ordered:04-Sep-2018 Fast DO, Sangeetha AFast DO, Sangeetha A Start : 19-May-2018 End : 04-Sep-2018 Inactive Cipro 500 MG Oral Tablet 1 [...] days Quantity: 30 {Tablet} Refills: 1 Ordered:19-May-2018 Amelia Cota LPN Start : 25-Jan-2018 End : 19-May-2018 Inactive ERGOCALCIFEROL, 09970HRHQ (Oral Capsule) 1 (one) Capsule Capsule twice [...] for 0 days Refills: 0 Ordered:02-Dec-2006 DO, Sangeetha AF DO, Sangeetha A End : 02-Dec-2006 Inactive Lisinopril 5 [...] hs for 0 days Refills: 0 Ordered:13-May-2010 Inna Grigsbyctive LYRICA, 50MG (Oral Capsule) 1 bid (50 MG) Inactive LYRICA, 50MG (Oral Capsule) 1 Capsule bid for 30 days Quantity: 60 {Capsule} Refills: 0 Ordered:05-Jul-2011 Delisa Melendez LPN Start : 05-Jul-2011 End : 04-Aug-2011 Inactive MACROBID, 100MG (Oral Capsule) 1 (one) [...] : 23-Jul-2011 End : 02-Aug-2011 Inactive MAXITROL, 3.5-37970-8.1 (Ophthalmic Ointment) apply to eye lids as [...] hs (50 MG) Inactive Comments:Dr. Hankins NYSTATIN, 786944WSWQ/ML (Mouth/Throat Suspension) 5cc Suspension 5 times daily [...] days Quantity: 6 {Tablet} Refills: 0 Ordered:04-Jun-2013 Tatum SAUCEDO Hermelinda Start : 04-Jun-2013 End : 06-Jun-2013 Inactive [...] days Quantity: 1 {Applicator} Refills: 0 Ordered:26-Jun-2018 Arpan Irvin DOa AFast DO, Sangeetha A Start : 19-May-2018 End : 18-Jun-2018 Inactive TRAZODONE HCL, 50MG (Oral Tablet) 1/2 qhs / HS for 0 days Refills: 0 Ordered:02-Dec-2006 Tavon DAVIS, Sangeetha AFast DO, Sangeetha A End : 02-Dec-2006 Inactive Venlafaxine HCl ER 150 MG Oral Capsule Extended Release 24 Hour 1 capsule daily (150 MG) Inactive ZITHROMAX Z-SIDDHARTH, 250MG (Oral Tablet) 1 Tablet uad for 0 days Quantity: 1 {Package(s)} Refills: 0 Ordered:04-Jun-2013 Delisa Melendez LPN Start : 22-Feb-2013 End : 04-Jun-2013 Inactive [...] days Quantity: 1 {Solution} Refills: 3 Ordered:26-Jun-2010 Sangeetha AFast DO, Sangeetha A Start : 26-Jun-2010 End : 26-Jun-2010 Discontinued CELEXA, 20MG (Oral Tablet) 1 (one) Tablet qd for 0 days Quantity: 90 {Tablet} Refills: 3 Ordered:09-Sep-2008 Sangeetha AFast DO, Sangeetha A Start : 09-Sep-2008 End : 09-Sep-2008 Discontinued CELEXA, 40MG (Oral Tablet) 1 qd for 0 days Refills: 0 Ordered:10-Nov-2015 Paul Morgan Start : 12-May-2012 End : 10-Nov-2015 Discontinued COLACE, 100MG (Oral Capsule) 1 Capsule daily for 0 days Quantity: 30 {Capsule} Refills: 0 Ordered:27-Jul-2013 Fast DO, Sangeetha AFbud DO, Sangeetha A Start : 27-Jul-2013 End : 27-Jul-2013 Discontinued EFFEXOR XR, 75MG (Oral Capsule Extended Release 24 Hour) 1 (one) Capsule ER 24HR qd for 0 days Quantity: 90 {Capsule_ER_24HR} Refills: 3 Ordered:09-Sep-2008 DO, Sangeetha العراقي DO, Sangeetha A Start : 09-Sep-2008 End [...] Start : 15-Aug-2006 End : 22-Apr-2008 Discontinued Comments:per gilbert LOTENSIN HCT, 10-12.5MG (Oral Tablet) 1 Tablet qd for 0 days Quantity: 90 {Tablet} Refills: 3 Ordered:15-Aug-2006 Mast Maria Teresa MORENO Start : 15-Aug-2006 End : 03-Oct-2006 Discontinued [...] 30 {Tablet_DR} Refills: 3 Ordered:24-Apr-2013 Sangeetha Irvin DO, DO, Sangeetha A Start : 24-Apr-2013 End : 24-Apr-2013 Discontinued ONGLYZA, 5MG (Oral Tablet) 1 Tablet qd for 0 days Quantity: 30 {Tablet} Refills: 3 Ordered:24-Apr-2013 Sangeetha Irvin DO, DO, Sangeetha A Start : 24-Apr-2013 End [...] Quantity: 30 {Tablet} Refills: 0 Ordered:19-May-2018 Long BREAD OVEN OPERATOR, Amelia L Start : 12-May-2012 End : 19-May-2018 Discontinued Comments:This order discontinued per [facility]. ZOFRAN ODT, 4MG (Oral Tablet Dispersible) qd prn nausea (4 MG) End : 08-Aug-2015 Discontinued Comments:[facility] Allergies and Adverse Reactions Name Dates [...] and Lateral Result: Comments: See Note; NOTES: [facility] [address] [place] [address] Chest PA and Lateral MR#: [id number] Acct: [id number] Name: IFEOMA ASHRAF Rep #: [id number] : 1965 F 53 From: Dimitris Valderrama DO PCP: Sangeetha Irvin DO Status: REG CLI Study: Chest PA and Lateral Date of Exam: 07/14/18 Exam# [id number] Ordering Dr: Shahrzad Todd GENERAL ENGINEER-Pato STUDY: X-RAY CHEST REASON FOR EXAM: Female, [...] Dimitris Valderrama DO at 8:47 EDT Tel [phone], Service support , CC: NUNU Todd; Sangeetha Irvin DO Quart[employer] Blasting: Signed 10-Jun-2018 Pacemaker Check Result: Comments: See Note; NOTES: [facility] [address] [place] [address] Pacemaker Check Date of Service: 06/09/18 0909 MR#: [id number] Acct: [id number] Name: IFEOMA ASHRAF Rep #: [id number] : 1965 From: Danica Pickering Age/Sex: 53/F Location: [facility] Status: Signed Billing Codes ICD Device Billing: ICD Dev Prog Eval, Single 06/09/18912 <Elec tronically signed by Danica Pickering > Date Danica Pickering 06/10/18 1406<Electronically signed by Boone Ch MD> Cosigner Signat ure: Date (if applicable) Boone Ch MD CC: 08-Jun-2018 Cardiology Visit Report Result: Comments: See Note; NOTES: [facility] [address] [place] [address] OFFICE VISIT Date of Service: 05/31/18 MR#: [id number] Acct: [id number] Name: IFEOMA ASHRAF Rep #: [id number] : 1965 Provider: NUNU Todd Age/Sex: 53/F Location: [facility] Status: Signed with Addenda ADDENDUM by NUNU Todd on 06/01/18 at 0746 Addendum entered and electronic ally signed by LUPE Black 06/01/18 07:46: Patient's outside records from [facility] admission from 04/07/2018 to 04/27/2018 were reviewed. [...] ultimately discharged home with requested follow-up with [facility] [facility] or local neurolo gist in [...] defibrillator (ICD) Z95.810 Generator change 11/[address] [facility] LUPE Chapman Pacemaker check in February [...] prior to saving. Follow Up 6 Months (COLORIST PHOTOGRAPHY) 05/31/18 (GIUSEPPE) 06/01/18 0762 <Electronically signed by Shahrzad ANDRADE> Date ____ Shahrzad Todd cc: Sangeetha Irvin DO * Signed [...] and tricuspid regurgitation. She presented [facility] on March 08, 2018 after being found unresponsive in her bathroom. During this hospitalization she was found to have an acute left axillary and left brachial vein DVT and was started on Eliquis. She presented to [facility] emergency department in March 2018 for altered mental status. Her CT scan prior to ER visit showed possible hygroma versus subacute resolving subdural hematoma. She was transferred to [facility] for further evaluation. These records are not available for review t gio. Pt. denies chest, arm, jaw, or neck [...] 05/31/18 Pulse Rate 100 Intake Visit Reasons: [facility] to [place] Allergies amitriptyline Adverse Reaction (Severe, Verified 05/31/18 [...] meq PO DAILY #30 tab 05/31/18 [Rx] PFSH Medical History Nonrheumatic mitral (valve) insufficiency [...] rter-defibrillator (ICD) Z95.810 Generator change 11/[address] [facility] LUPE Chapman Pacemaker check in February [...] 4. Karis nd ischemia I24.8 Plan - MYRON BlackC Her troponin I was elevated in February [...] of left upper extremity I82.622 Plan - MYRON BlackC This is being followed by primary care [...] prior to saving. Follow Up 6 Months (COLORIST PHOTOGRAPHY) 05/31/18 (GIUSEPPE) Coding Level of Care Code [...] unspecified type 05/31/18 1556 <Electronically signed by Shahrzad ANDRADE> Date Shahrzad griffin Signature: Date (if applicable) CC: Sangeetha Irvin DO 05-Jun-2018 Oncology Visit Report Result: Comments: See Note; NOTES: [facility] [address] [place] [address] OFFICE VISIT Date of Service: 06/05/18 1314 MR#: [id number] Acct: [id number] Name: TYLOR ASHRAF Rep #: [id number] : 1965 From: Simeon Gresham MD Age/Sex: 53/F Location: [facility] Status: Signed Subjective - Date of Service Date of Service:: 06/05/18 - Chief Complaint Follow up DLBCL - His tory of Present Illness 53-year-old woman was diagnosed with non-Hodgkin's lymphoma, diffuse large B cell, 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 She had [...] stem cell transplant in February 2007 at [facility] with complete remission. She is on [...] 6 months with CBC/CMP/LDH. Primary Care Provider: Simon, DO Referring Provider: - Problem List (1) History of non-Hodgkin's lymphoma Status: Chronic (2) Iron deficiency Status: Chronic Code Visit Office Visits / Consults: 60565 OV L3 Est 1325 <Electronically signed by Simeon Gresham MD> Date Simeon Gresham MD Cosigner Signature: Date (if applicable) CC: 26-May-2018 Venous Duplex Upper Extremity Result: Comments: See Note; NOTES: [facility] [address] [place] [address] Venous Duplex US, Unilateral 05/25/18 0903 MR#: [id number] Acct: [id number] Name: IFEOMA SILVA Rep #: [id number] : 1965 53 From: Juanjo Russo MD Attending Dr: Sangeetha Irvin DO Status: REG CLI Ordering Dr: Sangeetha Irvin DO Date: 05/25/18 Location: [facility] Sex: F C Admitted: Lois pedraza For [...] Date Dictated: 05/25/18 0903 Date Transcribed: 05/26/18 1635 Quartz Miner Blasting: Signed 06-Apr-2018 Chest 1 View (Portable) Result: Comments: See Note; NOTES: [facility] [address] [place] [address] Chest 1 View (Portable) MR#: [id number] Acct: [id number] Name: IFEOMA ASHRAF Rep #: : 1965 F 53 From: Levy Lucas DO PCP: Sangeetha Irvin DO Status: PRE ER Study: Chest 1 View (Portable) Date of Exam: 04/06/18 Exam# [id number] Ordering Dr: Dejuan Bacon MD STUDY: X-RAY [...] , CC: Sangeetha Irvin DO; Dejuan Bacon Quartz Miner Blasting: Signed 05-Apr-2018 Brain/Head without Contrast Result: Comments: See Note; NOTES: [facility] [address] [place] [address] Brain/Head without Contrast MR#: [id number] Acct: [id number] Name: IFEOMA ASHRAF Rep # : [id number] : 1965 F 53 From: Levy Lucsa DO PCP: Sangeetha Irvin DO Status: REG CLI Study: Brain/Head without Contrast Date of Exam: 04/05/18 Exam# [id number] Ordering Dr: Shahrzad Bartlett MD STUDY : CT BRAIN WITHOUT [...] 14:06 EDT Tel , Service support 1- [phone], N.B. : The above information has been verbally conveyed by Levy Lucas DO to connected , Covering Physician, on 04/05/2018 14:06:03 (ET). CC: Sangeetha Irvin DO; Shahrzad Bartlett MD Quartz [employer]er Blasting: Signed 05-Apr-2018 Brain/Head without Contrast Result: Comments: See Note; NOTES: [facility] [address] [place] [address] Brain/Head without Contrast MR#: [id number] Acct: [id number] Name: IFEOMA ASHRAF Rep # : [id number] : 1965 F 53 From: Levy Lucas DO PCP: Sangeetha Irvin DO Status: REG CLI Study: Brain/Head without Contrast Date of Exam: 04/05/18 Exam# [id number] Ordering Dr: Shahrzad Bartlett MD STUDY : CT BRAIN WITHOUT [...] 14:06 EDT Tel , Service support 1- [phone], N.B. : The above information has been verbally conveyed by Levy Lucas DO to connected , Covering Physician, on 04/05/2018 14:06:03 (ET). CC: Sangeetha Irvin DO; Shahrzad Bartlett MD Quartz Miner Blasting: Signed 31-Mar-2018 Cardiology Visit Report Result: Comments: See Note; NOTES: [facility] [address] [place] [address] OFFICE VISIT Date of Service: 03/31/18 MR#: [id number] Acct: [id number] Name: Ifeoma Ashraf Rep #: [id number] : 1965 Provider: Boone Ch MD Age/Sex: 53/F Location: [facility] Status: Signed HPI HPI Chief Complaint: Follow-up [...] to the emergency department at [facility] on 03/08/2018 aft er being found unresponsive [...] care unit. She was eventually transferred to [facility]. Her major problem at this time [...] Lt brachial Intake Visit Reasons: DC to [facility] 03-14 Cable Reeler Required: No Accompanied by: mother Is patient [...] I would like to obtain a associate chemist ry profile to be able to appropriately adjust any diuretics. At this juncture it may be prudent to add Lasix 40 mg a day to her current regimen. 2. Presence of implantable cardioverter-defibrillator (I CD) Z95.810 Generator change 11/[address] [facility] [address] Ahmadi Plan She does have [...] months. 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 (sales officer) Coding Level of Care Code Off vis,est,level [...] Flow Screening Result: Comments: See Note; NOTES: [facility] [address] [place] [address] 11/22/17 0803 MR#: [id number] Acct: [id number] Name: IFEOMA ASHRAF Rep #: [id number] : 1965 52 From: Juanjo Russo MD Attending Dr: Sangeetha Irvin DO Status: REG REF Ordering Dr: Date: 11/22/17 Location: [facility] Sex: F C Admitted: Carotid Duplex Ultrasound [...] Dictated: 11/22/17 0803 Date Transcribed: 11/22/17 1518 Quartz Miner Blasting: Signed 18-Nov-2017 Office Visit Report Result: Comments: See Note; NOTES: [facility] [address] [place] [address] OFFICE VISIT Date of Service: 11/17/17 MR#: [id number] Acct: [id number] Patient: IFEOMA ASHRAF Rep #: [id number] : 1965 Provider: Danica Pickering Age/Sex: 52/F Location: [facility] Status: Signed Comments Summary Comments: Wound Check: [...] n office Interview Reason: scheduled follow up Manager Environmental Health: [employer] Name: Lan Mckeon VR Model: [id number] Serial #: [id number] Implant Date: 11/10/17 Year(s): 0 Implant Physician: [...] and No drainage Bibiana ds Lead #1 Manager Environmental Health Lead 1: [employer] Model Lead 1: 7121Q/58 Serial# Lead 1: [id number] Date Implanted Lead 1: 10/10/09 Position Lead [...] in other diseases classified elsewhere I43 11/17/17 1420 <Electronically signed by Danica Pickering > Date Danica Pickering 11/18/17 0813<Electronically signed by Noe Morris MD> Cosigner Signature: Date (if applicable) Noe Morris MD CC: 10-Nov-2017 Operative Report Result: Comments: See Note; NOTES: [facility] [address] [place] [address] Operative Report 11/10/17 1148 MR#: [id number] Acct: [id number] Name: SALOME ASHRAF Rep #: [id number] : 1965 52 From: Lior Ahmadi MD PCP: Sangeetha Irvin DO Status: REG SDC Y Location: [facility] Operative Report Date of Procedure: 11/10/17 Preoperative diagnosis is device at end of life for normal battery depletion. Postoperative diagnosis same as above. After informed consent and IV antibiotics the patient was brought to the [place] catheterization laboratory and the ski n over [...] chart documents provided by the device company cash applications representative procedure summary. 11/10/17 1150 <Electronically signed by Lior Ahmadi MD > Date Lior Ahmadi MD CC: Sangeetha Irvin DO; Lior Ahmadi MD Signed 03-Nov-2017 Office Visit Report Result: Comments: See Note; NOTES: [facility] [address] [place] [address] OFFICE VISIT Date of Service: 11/03/17 MR#: [id number] Acct: [id number] Patient: IFEOMA ASHRAF Rep #: [id number] : 1965 Provider: Danica Pickering Age/Sex: 52/F Location: [facility] Status: Signed Comments Summary Comments: Written [...] in office Interview Reason: routine follow up Manager Environmental Health: [employer] Name: Current VR Model: 1211-36Q ICD Serial #: [id number] Implant Date: 10/10/09 Year(s): 8 Implant Physician: [...] Model Lead 1: 7121Q/58 Serial# Lead 1: [id number] Date Implanted Lead 1: 10/10/09 Position Lead [...] 11/03/17 1648<Electronically signed by Boone Ch MD> Cosigner Signature: Date (if applicable) Boone Ch MD CC: 03-Nov-2017 Cardiology Visit Report Result: Comments: See Note; NOTES: [facility] [address] [place] [address] [address] [place] [address] OFFICE VISIT Date of Service: 11/03/17 MR#: [id number] Acct: [id number] Name: IFEOMA ASHRAF Rep #: [id number] : 1965 Provider: Boone Ch MD Age/Sex: 52/F Location: [facility] Status: Signed HPI HPI Details: IFEOMA ASHRAF, [...] 25 to 29 (25% per echo 03/11/2015) [facility] Medical History Type 2 diabetes mellitus without [...] of automatic cardioverter/defibrillator (AICD) Z95.810 10/06/2009 @ [facility] Plan She is status post ICD implantation [...] was [facility]. She is also on spironolactone [...] and Lateral Result: Comments: See Note; NOTES: [facility] [address] [place] [address] Chest PA and Lateral MR#: [id number] Acct: [id number] Name: MARIOIFEOMA ALAN Sharath Rep #: [id number] : 1965 F 52 From: Dimitris Valderrama DO PCP: Sangeetha Irvin DO Status: PRE [facility] Study: Chest PA and Lateral Date of Exam: 11/03/17 Exam# [id number] Ordering Dr: Boone Ch MD STUDY: X-RAY [...] Dimitris Valderrama DO at 18:21 EST Tel [phone], Se rvice support , CC: Boone Ch MD; Sangeetha Irvin DO Quartz Miner Blasting: Signed 14-Oct-2017 Office Visit Report Result: Comments: See Note; NOTES: [facility] [place] [address] OFFICE VISIT Date of Service: 10/12/17 MR#: [id number] Acct: [id number] Patient: IFEOMA ASHRAF Rep #: [id number] : 1965 Provider: Danica Pickering Age/Sex: 52/F Location: [facility] Status: Signed Comments Summary Comments: Single Chamber ICD Evaluation: Interrogation shows No VT/VF episodes since . No Alerts noted. Left pectoral pocket/incision w/o s/s of infection or erosion. Pt offers no cardiac complaints. Presenting rhythm shows Sinus Tachycardia @ 105 bpm. Left pectoral pocket/incision w/o s/s of infection or erosion. RECONNAISSANCE MAN=0%. Battery longevity approx 2.9 mos. At device check in June device showed longevity of 14 mos. D/T longevity decreasing quickly pt scheduled for ICD generator pato gilliam with Dr. Ahmadi on 11/10/[address] [facility]. Lead impedances, sensing and pace/sense threshold remain stable. No parameter changes made. Counters cleared. Pt scheduled for o.v and teaching on 11/03/17 and ICD g enerator change on 11/10/17. Device Device Date Interviewed: 10/12/17 Follow- up Location: in office Interview Reason: routine follow up Manager Environmental Health: 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 Model Lead 1: 7121Q/58 Serial# Lead 1: [id number] Date Implanted Lead 1: 10/10/09 Position Lead [...] Pickering 10/14/17 1230<Electronically signed by Sharyn KNOX> Cosigner Signature: Date (if applicable) Sharyn Turner CC: 15-Jun-2017 Abdomen WITH IV Contrast Result: Comments: See Note; NOTES: [facility] [address] [place] [address] Abdomen WITH IV Contrast MR#: [id number] Acct: [id number] Name: IFEOMA ASHRAF Rep #: [id number] : 1965 F 52 From: Carl Vincent MD PCP: Sangeetha Irvin DO Status: REG CLI Study: Abdomen WITH IV Contrast Date of Exam: 06/15/17 Exam# [id number] Ordering Dr: Analisa Conway MD STUDY: CT [...] CC: Analisa Conway MD; Sangeetha Irvin DO Quartz Miner Blasting: Signed 15-Jun-2017 Spine Cervical without Contras Result: Comments: See Note; NOTES: [facility] [address] [place] [address] Spine Cervical without Contras MR#: [id number] Acct: [id number] Name: IFEOMA ASHRAF Radha p #: [id number] : 1965 F 52 From: Zev Mandujano MD PCP: Sangeetha Irvin DO Status: REG CLI Study: Spine Cervical without Contras Date of Exam: 06/15/17 Exam# [id number] Ordering Dr: Analisa Conway MD STUDY: CT [...] techniques were used for this CT. [facility]. FINDINGS: Normal craniovertebral junction. Normal anterior [...] CC: Analisa Conway MD; Sangeetha Irvin DO Quartz Miner Blasting: Signed 10-Feb-2017 Spine Lumbar without Contrast Result: Comments: See Note; NOTES: [facility] [address] [place] [address] Verdana 4d Spine Lumbar without Contrast MR#: [id number] Acct: [id number] Name: MARISEL ASHRAFGUY Sharath Rep #: [id number] : 1965 F 51 From: Brian Gill MD PCP: Sangeetha Irvin DO Status: REG CLI Study: Spine Lumbar without Contrast Date of Exam: 02/10/17 Exam# [id number] Ordering Dr: Analisa Carr i, MD STUDY: [...] CC: Analisa Conway MD; Sangeetha Irvin DO Quart[employer] Miner Blasting: Signed 20-Jan-2017 Liver Result: Comments: See Note; NOTES: [facility] [address] [place] [address] Verdana 4d Liver MR#: [id number] Acct: [id number] Name: IFEOMA ASHRAF Rep #: [id number] : 1965 F 51 From: Vincent Bui DO PCP: Sangeetha Irvin DO Status: REG CLI Study: Liver Date of Exam: 01/20/17 Exam# [id number] Ordering Dr: Sangeetha Irvin DO STUDY: ABDOMINAL [...] Vincent Bui DO at 23:43 EDT Tel [phone], Service support , CC: Sangeetha Irvin DO [employer] Blasting: Signed 20-Jan-2017 Thyroid Result: Comments: See Note; NOTES: [facility] [address] [place] [address] Verdana 4d Thyroid MR#: [id number] Acct: [id number] Name: IFEOMA ASHRAF Rep #: [id number] : 1965 F 51 From: Jin Rolon PCP: Sangeetha Irvin DO Status: REG CLI Study: Thyroid Date of Exam: 01/20/17 Exam# [id number] Ordering Dr: Sangeetha Irvin DO STUDY: THYROID [...] Service support , CC: Sangeetha Irvin DO [employer] Blasting: Signed 17-Nov-2016 Dexa Bone Density Study (HP) Result: Comments: See Note; NOTES: [facility] [address] [place] [address] Verdana 4d Dexa Bone Density Study (HP) MR#: [id number] Acct: [id number] Name: COL HARPAL ASHRAF Rep #: [id number] : 1965 F 51 From: Prashant Delgadillo MD PCP: Sangeetha Irvin DO Status: REG CLI Study: Dexa Bone Density Study (HP) Date of Exam: 11/17/16 Exam# [id number] Ordering Dr: Sangeetha Irvin DO STUDY: DUAL [...] Prashant Delgadillo MD at 10:52 EST Tel [phone], Service support [phone], CC: Sangeetha Irvin DO [employer] Blasting: Signed 17-Nov-2016 SCREENING MAMM (CAD), BILAT Result: Comments: See Note; NOTES: [facility] [address] [place] [address] Verdana 4d SCREENING MAMM (CAD), BILAT MR#: [id number] Acct: [id number] Name: SALOME ASHRAF Rep #: [id number] : 1965 F 51 From: Prashant Delgdaillo MD PCP: Sangeetha Irvin DO Status: REG CLI Study: SCREENING MAMM (CAD), BILAT Date of Exam: 11/17/16 Exam# [id number] Ordering Dr: Gary Irvin DO MAMMOGRAPHY - [...] biopsy of a clinically suspiciou s abnormality. [id number] Electronically Signed: Prashant Delgadillo MD at 12:55 EST Tel [phone], Service support [phone], CC: Sangeetha Irvin DO [employer] Blasting: Signed 17-Nov-2016 SCREENING MAMM (CAD), BILAT Result: Comments: See Note; NOTES: [facility] [address] [place] [address] Verdana 4d SCREENING MAMM (CAD), BILAT MR#: [id number] Acct: [id number] Name: SALOME ASHRAF Rep #: [id number] : 1965 F 51 From: Prashant Delgadillo MD PCP: Sangeetha Irvin DO Status: REG CLI Study: SCREENING MAMM (CAD), BILAT Date of Exam: 11/17/16 Exam# [id number] Ordering Dr: Gary Irvin DO ADDENDUM by [...] delay biopsy of a clinically suspicious abnormality. [id number] Electronically Signed: Prashant Delgadillo MD at 13:07 EST Tel [phone], Service support [phone], 11/17/16 1315 Date cc: Sangeetha Irvin DO * Signed [...] was performed. COMPARISON: Comparison is made with [facility] r study dated August 14, 2015 and [...] delay biopsy of a clinically suspicious abnormality. [id number] Electronically Signed: Prashant Delgadillo MD at 12:55 EST Tel [phone], Ser vice support [phone], CC: Sangeetha Irvin DO [employer] Blasting: Signed 19-Dec-2015 Liver Result: Comments: See Note; NOTES: [facility] [address] [place] [address] Verdana 4d Liver MR#: [id number] Acct: [id number] Name: MARIOIFEOMA ALAN Sharath Rep #: [id number] : 1965 F 50 From: Ziggy Santos MD PCP: Sangeetha Irvin DO Status: REG CLI Study: Liver Date of Exam: 12/19/15 Exam# [id number] Ordering Dr: Sangeetha Irvin DO STUDY: ABDOMINAL [...] Service support , CC: Sangeetha Irvin DO [employer] Blasting: Signed 19-Dec-2015 Thyroid Result: Comments: See Note; NOTES: [facility] [address] [place] [address] Verdana 4d Thyroid MR#: [id number] Acct: [id number] Name: IFEOMA ASHRAF ep #: [id number] : 1965 F 50 From: Ziggy Santos MD PCP: Sangeetha Irvin DO Status: REG CLI Study: Thyroid Date of Exam: 12/19/15 Exam# [id number] Ordering Dr: Sangeetha Irvin DO STUDY: THYROID [...] Service support , CC: Sangeetha Irvin DO [employer] Blasting: Signed 14-Aug-2015 Bilat Scrn Digital AND CAD Result: Comments: See Note; NOTES: [facility] [address] [place] [address] Verdana 4d Bilat Scrn Digital AND CAD MR#: [id number] Acct: [id number] Name: IFEOMA ASHRAF Rep #: [id number] : 1965 F 50 From: Prashant Delgadillo MD PCP: Sangeetha Irvin DO Status: REG CLI Study: Bilat Scrn Digital AND CAD Date of Exam: 08/14/15 Exam# [id number] Order ing Dr: Sangeetha Irvin DO MAMMOGRAPHY [...] Prashant Delgadillo MD at 10:49 EST Tel [phone], Service support [phone], CC: Sangeetha Irvin DO [employer] Blasting: Signed 10-Mar-2015 Emergency Department Summary Result: Comments: See Note; NOTES: [facility] [address] [place] [address] Emergency Department Summary MR#: [id number] Acct: [id number] Name: MARIOMARILU LUANAIFEOMA Sharath Rep #: [id number] : 1965 49 From: Mayito Roldan DO PCP: Sangeetha Irvin DO Status: [facility] ER DATE OF SERVICE: 02/28/2015 Addendum This [...] way. Mayito Roldan DO T: NTS JOB: [id number] 03/10/15 2329 <Electronically signed by Mayito Roldan DO> Date Mayito Roldan DO CC: Sangeetha Irvin DO Date Dictated: 02/28/15824 Date Transcribed: 02/28/15824 Quartz [employer]er Blasting: Signed 02-Mar-2015 Emergency Department Summary Result: Comments: See Note; NOTES: [facility] [address] [place] [address] Emergency Department Summary MR#: [id number] Acct: [id number] Name: IFEOMA RASMUSSEN Rep #: [id number] : 1965 49 From: Alejandro Lopez DO PCP: Sangeetha Irvin DO Status: [facility] ER DATE OF SERVICE: 02/28/2015 CHIEF COMPLAINT: [...] The patient has plans to [facility] on General. I will give her local surgeon's name if she wants to speak with them or she can certainly also speak with Dr. Irvin. CLINICAL IMPRESSION: Biliary colic. Alejandro Lopez DO T: NTS JOB: [id number] 03/02/1543 <Electronically signed by Alejandro Lopez DO> Date Alejandro Lopez DO CC: Sangeetha Irvin DO Date Dictated: 718 Date Transcribed: 02/28/15718 Quartz Miner Blasting: Signed 28-Feb-2015 Discharge Instruction Result: Comments: See Note; NOTES: [facility] [address] [place] [address] Discharge Instruction 02/28/1539 MR#: [id number] Acct: [id number] Name: IFEOMA ASHRAF Rep #: [id number] : 1965 49 From: Alejandro Lopez DO [...] problems, contact your doctor. Call [facility] ([phone]) or report to the closest Em ergency Room. Call 911 if necessary. 02/28/15639 <Electronically signed by Alejandro Lopez DO> Date Alejandro Lopez DO Cosign er Signature (If Indicated): Date CC: Sangeetha Irvin DO 28-Feb-2015 Gallbladder Result: Comments: See Note; NOTES: [facility] [address] [facility] [place] [address] Ultrasound Report MR#: [id number] Acct: [id number] Name: IFEOMA ASHRAF Rep #: [id number] : 1965 F 49 From: Prashant Delgadillo MD PCP: Sangeetha Irvin DO Status: REG ER Study: Gallbladder Date of Exam: 02/28/15 Exam# [id number] Ordering Dr: Alejandro Lopez DO STUDY: ABDOM [...] Prashant Delgadillo MD at 8:15 EDT Tel [phone], Service support [phone], CC: Alejandro Lopez DO; Sangeetha Irvin DO [employer] Blasting: Signed 11-Feb-2015 Spine Cervical without Contras Result: Comments: See Note; NOTES: [facility] [address] [place] [address] CAT Scan Report MR#: [id number] Acct: [id number] Name: IFEOMA ASHRAF Rep #: [id number] : 1965 F 49 From: Prashant Delgadillo MD PCP: Sangeetha Irvin DO Status: REG CLI Study: Spine Cervical without Contras Date of Exam: 02/11/15 Exam# [id number] Ordering Dr: Analisa Conway MD STUDY: CT [...] Prashant Delgadillo MD at 9:49 EDT Tel [phone], Service support [phone], CC: Analisa Conway MD; Sangeetha Irvin DO [employer] Blasting: Signed 18-Jul-2014 Jose Luis Cohen Digital & CAD Result: Comments: See Note; NOTES: [facility] [address] [place] [address] Breast Imaging Report MR#: [id number] Acct: [id number] Name: IFEOMA ASHRAF Rep # : [id number] : 1965 F 49 From: Prashant Delgadillo MD PCP: Sangeetha Irvin DO Status: REG CLI Exam# [id number] Ordering Dr: Sangeetha Irvin DO MAMMOGRAPHY - [...] Prashant Delgadillo MD at 8:36 EDT Tel [phone], [employer] support [phone], CC: Sangeetha Irvin DO [employer] Blasting: Signed 18-Jul-2014 Liver Result: Comments: See Note; NOTES: [facility] [address] [place] [address] Ultrasound Report MR#: [id number] Acct: [id number] Name: IFEOMA ASHRAF Rep #: [id number] : 1965 F 49 From: Prashant Delgadillo MD PCP: Sangeetha Irvin DO Status: REG CLI Study: Liver Date of Exam: 07/18/14 Exam# [id number] Ordering Dr: Sangeetha Irvin DO STUDY: ABDOMINAL [...] Prashant Delgadillo MD at 9:34 EDT Tel [phone], Service support [phone], CC: Sangeetha Irvin DO [employer] Blasting: Signed 18-Jul-2014 Thyroid Result: Comments: See Note; NOTES: [facility] [address] [place] [address] Ultrasound Report MR#: [id number] Acct: [id number] Name: IFEOMA ASHRAF Rep #: [id number] : 1965 F 49 From: Prashant Delgadillo MD PCP: Sangeetha Irvin DO Status: REG CLI Study: Thyroid Date of Exam: 07/18/14 Exam# [id number] Ordering Dr: Sangeetha Irvin DO STUDY: THYROID [...] Prashant Delgadillo MD at 8:41 EDT T [phone], Service support [phone], CC: Sangeetha Irvin DO [employer] Blasting: Signed 05-Feb-2014 Brain/Head W/WO Contrast Result: Comments: See Note; NOTES: [facility] [address] [place] [address] CAT Scan Report MR#: [id number] Acct: [id number] Name: MARIOWAQASSEBASTIENIFEOMA Sharath Rep #: [id number] : 1965 F 48 From: Prashant Delgadillo MD PCP: Sangeetha Irvin DO Status: REG CLI Study: Brain/Head W/WO Contrast Date of Exam: 02/05/14 Exam# [id number] Ordering Dr: Sangeetha Irvin DO STUD Y: [...] Prashant Delgadillo MD at 9:19 EDT Tel [phone], Service support [phone], CC: Sangeetha Irvin DO [employer] Blasting: Signed Immunization Name Dates Details Influenza (3 years and up) on: 10-Jul-2008 Comments: injection given in left deltoid, pt tolerated welllot # [id number] Influenza (3 years and up) on: 09-Jul-2009 Comments: Lot #[id number]-right deltoidDose0.5mlgiven by Juventino Nye LPN Family History [...] smoker Vital Signs Date Test Result Details :41 Temperature 97.1 f Comments: Method: Temporal Pulse 103 /min Comments: Pattern: Regular Respiration Rate 16 /min Comments: Pattern: Unlabored O2 SAT 95 % Comments: Room air BP Systolic 106 mm[Hg] Comments: Patient Position: Sitting; Cuff Location: Left Arm; Cuff Size: Standard BP Diastolic 68 mm[Hg] Comments: Patient Position: Sitting; Cuff Location: Left Arm; Cuff Size: Standard Weight 192 lb Height 65 in Body Mass Index Calculated 31.95 kg/m2 Body Surface Area Calculated 1.94 m2 :32 Temperature 97.5 f Comments: Method: Temporal [...] Height 0 in Head Circumference 0.00 cm 86-Jgt-209240:27 Temperature 98 f Comments: Method: Oral Pulse [...] 0.00 cm Results Date Description Value Details 1-Iol-178489:44 ANCA Comments: Is Patient Fasting? [facility] (refer to report for specific site)refer to report for address and phone number Atypical pANCA <1:20 {titer} (Normal) Comments: The atypical pANCA pattern has been observed in asignificant percentage of patients with ulcerative colitis,primary sclerosing cholangitis and autoimmune hepatitis.Performed at: [facility] [address] [id number] Director: Omar Hood PhD, Phone: [phone] PERINUCLEAR Ab <1:20 {titer} (Normal) Comments: The presence of positive fluorescence exhibiting P-ANCA orC-ANCA patterns alone is not specific for the diagnosis ofWegener's Granulomatosis (WG) or microscopic polyangiitis.Decisions about treatment sh ould not be based solely onANCA IFA results. The International ANCA Group Consensusrecommends follow up testing of positive sera with both MD-3 and MPO- ANCA enzyme immunoassays. As many as 5% serumsamp les are positive only by EIA. Ref. AM J Clin Levdwa7905;111:507-513. CYTOPLASMIC Ab <1:20 {titer} (Normal) 1-Kxk-605734:44 ANTINUCLEAR ANTIBODIES DIRECT Comments: [facility] (refer to report for specific site)refer to report for address and phone number LASHA-DIRECT Negative (Normal) Comments: Performed at: [facility] [address] [id number] Director: Omar Hood PhD, Phone: [phone] 1-Shf-094351:44 CPK Total, Creatine Kinase Comments: [facility] [address] [place], [place], [id number] CPK TOTAL 33 U/L (Normal) Range: 26-192 3-Pmc-434088:44 Hemoglobin A1c Comments: [facility] [address] [place], [place], [address] HGB A1C 10.6 % (Abnormal) Range: 4.2-6.3 4-Unw-875287:44 PRANEETH AND PE, Random UR Comments: Is Patient Fasting? [facility] (refer to report for specific site)refer to report for address and phone number NOTE Comment (Normal) Comments: Protein electrophoresis scan will follow via computer,mail, or production line mechanic delivery. PRANEETH RESULT,U Comment (Normal) Comments: No monoclonality detected. M-SPIKE,UR% Not Observed % (Normal) GAMMA GLOB,U 5.5 % (Normal) BETA GLOB,U 14.2 % (Normal) TSXXV-3-VJEB,U 10.8 % (Normal) CXZWS-1-QPAB,U 7.6 % (Normal) ALBUMIN,U 62.0 % (Normal) PROTEIN,UR 27.8 mg/dL (Normal) 1-Cje-168630:44 PRANEETH + Protein Elect, Serum Comments: Is Patient Fasting? [facility] (refer to report for specific site)refer to report for address and phone number NOTE: Comment (Normal) Comments: Protein electrophoresis scan will follow via computer,mail, or production line mechanic delivery. PRANEETH RESULT,S Comment (Normal) Comments: No monoclonality detected. A/G RATIO 1.2 (Normal) Range: 0.7-1.7 GLOBULIN, TOTAL 2.9 g/dL (Normal) Range: 2.2-3.9 M-SPIKE g/dL (Normal) Comments: Not Observed GAMMA GLOBULIN 0.6 g/dL (Normal) Range: 0.4-1.8 BETA GLOBULIN 1.1 g/dL (Normal) Range: 0.7-1.3 NHKOZ-1-SJOS 0.9 g/dL (Normal) Range: 0.4-1.0 DDPVZ-0-LLRE 0.3 g/dL (Normal) Range: 0.0-0.4 ALBUMIN 3.4 g/dL (Normal) Range: 2.9-4.4 IMMUNOGL M 103 mg/dL (Normal) Range: 26-217 IMMUNO A 69 mg/dL (Abnormal) Range: 87-352 IMMUNO G 538 mg/dL (Abnormal) Range: 700-1600 PROTEIN,TOTAL 6.3 g/dL (Normal) Range: 6.0-8.5 4-Wyy-395363:44 Rheumatoid Factor Comments: [facility] [address] [place], [address] RHEUMATOID FAC < 10.0 {IU/mL} (Normal) :44 Sjogren's Antibodies A/B Comments: [facility] (refer to report for specific site)refer to report for address and phone number Anti-SS-B < 0.2 {AI} (Normal) Range: 0.0-0.9 Anti-SS-A < 0.2 {AI} (Normal) Range: 0.0-0.9 :44 Thyroid Stim Hormone (TSH) Comments: [facility] [address] [place], [address] TSH 2.71 {uIU/mL} (Normal) Range: 0.358-3.74 7-Lye-259054:44 Vitamin B12 1303 pg/mL (Abnormal) Comments: [facility] [address] [place], [address] Range: 211-911 :44 Vitamin D,25 Hydroxy Comments: [facility] [address] [place], [address] Vitamin D 25-OH 62.4 ng/mL (Normal) Range: 29.95-100.01 Comments: Vitamin D 25(OH) Status Range Deficiency <20 ng/mL (50nmol/L) Insuffciency 20 - 30 ng/mL (50 - 75 nmol/L) Sufficiency 30 - 100 ng/mL (75 - 250 nmol/L) Toxicity >100 ng/mL (>250 nmol/L) 5-Yah-288411:06 Basic Metabolic Profile (BMP) Comments: PLEASE FAX TO DR. CANTU [phone] [facility] [address] [place], [address] GAP 12 (Normal) Range: 5-15 CO2 26.0 [...] A.D.A. criteria.Please note revised GLUCOSE reference range dbdninljb13/02/2018. 88-Fir-72363:22 CBC W/Diff, Automated Comments: BMP TO DULCE TIMMONS.CBCD, TSH, B12 TO DR. SANGEETHA IRVIN.[facility] [address] [place], [place], [address] Absolute Lymph 1.16 {X10_3/ul} (Normal) Range: 0.83-4.51 [...] 4.2-5.4 WBC 8.0 K/mm3 (Normal) Range: 4.4-11.0 82-Vkt-77652:22 Vitamin B12 659 pg/mL (Normal) Comments: BMP TO NUNU.[facility].CBCD, TSH, B12 TO DR[address] SANGEETHA IRVIN.[facility] [address] [facility] [address] [place], [place], [address] Range: 211-911 82-Etm-88105:20 Basic Metabolic Profile (BMP) Comments: BMP TO [facility].CBCD, TSH, B12 TO DR. SANGEETHA IRVIN.[facility] [address] [facility] [place], [place], [address] GAP 9 (Normal) Range: 5-15 CO2 27.0 [...] A.D.A. criteria.Please note revised GLUCOSE reference range cefabbdgk52/02/2018. 99-Ogq-69573:20 Thyroid Stim Hormone (TSH) Comments: BMP TO DULCE TIMMONS.CBCD, TSH, B12 TO DR. SANGEETHA IRVIN.[facility] [address] [place], [address] TSH 4.09 {uIU/mL} (Abnormal) Range: 0.358-3.74 33-Opc-595451:23 Basic Metabolic Profile (BMP) Comments: [facility] [address] [place], [address] GAP 7 (Normal) Range: 5-15 CO2 30.0 [...] A.D.A. criteria.Please note revised GLUCOSE reference range unhqhqxvq37/02/2018. 70-Ztm-677374:23 BNP,B-Type NATRIURETIC PEPTIDE Comments: [facility] [address] [place], [address] B-TYPE JACKIE PEP 892.7 pg/mL (Abnormal) Range: 0-100 77-Ehd-118424:23 CBC W/Diff, Automated Comments: [facility] [address] [place], [address] Absolute Lymph 1.23 {X10_3/ul} (Normal) Range: 0.83-4.51 [...] 4.2-5.4 WBC 7.2 K/mm3 (Normal) Range: 4.4-11.0 01-Txv-765157:41 CBC W/Diff, Automated Comments: Reason for Laboratory Test .[facility] [address] [place], [address] Absolute Lymph 0.85 {X10_3/ul} (Normal) Range: 0.83-4.51 [...] 4.2-5.4 WBC 5.7 K/mm3 (Normal) Range: 4.4-11.0 81-Rpm-214531:41 Comprehensive Metabolic Profil Comments: Reason for Laboratory Test .Serial Specimen #1, #2 or #3? 1[facility] [address] [place], [place], [address] GAP 8 (Normal) Range: 5-15 CO2 28.0 [...] A.D.A. criteria.Please note revised GLUCOSE reference range dkrtidppc71/02/2018. 77-Rxf-833903:41 LDH 224 U/L (Normal) Comments: Reason for Laboratory Test .Serial Specimen #1, #2 or #3? [facility] [address] [place], [place], [address] Range: 84-246 2-Lvf-771931:41 URINE GENESIS CULTURE-IDENTIFICATN Comments: add to urine in lab; PATIENT NOT FASTINGPERFORMED BY: [facility] Vechhu4717 [facility] [id number] Information: SRC:JUAN ([id number]) Result 1 ENTEAE (Abnormal) Comments: Enterobacter aerogenes1,000 [...] S Urine Final report Culture,Comprehensi (Abnormal) ve 06-Phv-98662:46 AFP, Tumor Marker Comments: Is Patient ? [facility] (refer to report for specific site)refer to report for address and phone number AFP TUMOR 2253 10.0 ng/mL (Abnormal) Range: 0.0-8.3 Comments: [employer] ECLIA methodologyPerformed at: [employer] [facility] [address] [id number] Director: Omar Hood PhD, Phone: [phone] :46 CBC W/Diff, Automated Comments: [facility] [address] [place] [address], [address] Absolute Lymph 0.95 {X10_3/ul} (Normal) Range: 0.83-4.51 [...] 4.2-5.4 WBC 5.6 K/mm3 (Normal) Range: 4.4-11.0 10-Hel-82541:46 Comprehensive Metabolic Profil Comments: PLEASE ADD T3F T4F TO BLOOD FROM 05-25-[address] [place], [place], [address] GAP 9 (Normal) Range: 5-15 CO2 28.0 [...] A.D.A. criteria.Please note revised GLUCOSE reference range ccjnjgygw45/02/2018. 31-Phf-03542:46 Digoxin Level Comments: [facility] [address] [place], [place], [address] DIG 0.71 ng/mL (Abnormal) Range: 0.80-2.00 :46 Free T3 Comments: PLEASE ADD T3F T4F TO BLOOD FROM 05-25-18 THG2 5 [facility] [address]sc[address] [facility] [address] [place], [id number] FREE T3 3.2 pg/mL (Normal) Range: 2.18-3.98 :46 Hemoglobin A1c Comments: [facility] [address] [place], [place], [address] HGB A1C 5.4 % (Normal) Range: 4.2-6.3 :46 Lipid Profile Comments: PLEASE ADD T3F T4F TO BLOOD FROM 05-25-18 THG2 5 [facility] [address] [place], [place], [address] VLDL 22 mg/dL (Normal) Range: 5-40 LDL [...] :46 Microalb:Creat Ratio,Random UR Comments: [facility] [address] [place], [address] MALB:CREAT 7.8 {mg/g_CRE} (Normal) MICROALBUMIN,UR 10.9 mg/L (Normal) UR CREAT 139.00 mg/dL (Normal) :46 T4 Free Direct Comments: PLEASE ADD T3F T4F TO BLOOD FROM 05-25-[address] [place], [address] T4 FREE DIRECT 1.11 ng/dL (Normal) Range: 0.76-1.46 :46 Thyroid Stim Hormone (TSH) Comments: PLEASE ADD T3F T4F TO BLOOD FROM 05-25-[address] [place], [address] TSH 0.31 {uIU/mL} (Abnormal) Range: 0.358-3.74 :46 Urinalysis, Complete Comments: How was Urine Obtained? CLEAN [facility] [address] [place], [address] MUCUS, URINE 0 SEEN {/hpf} (Normal) [...] B12 368 pg/mL (Normal) Comments: [facility] [address] [place], [address] Range: 211-911 00-Moz-52483:46 Vitamin D,25 Hydroxy Comments: [facility] [address] [place], [address] Vitamin D 25-OH 64.5 ng/mL (Normal) Range: 29.95-100.01 Comments: Vitamin D 25(OH) Status Range Deficiency <20 ng/mL (50nmol/L) Insuffciency 20 - 30 ng/mL (50 - 75 nmol/L) Sufficiency 30 - 100 ng/mL (75 - 250 nmol/L) Toxicity >100 ng/mL (>250 nmol/L) 28-Nju-248960:52 Urinalysis, Complete Comments: Order Date: 04/06/18Has pt arrived? YHow was Urine Obtained? [facility] [address] [place], [id number] HYALINE CAST 5-10 SEEN {/lpf} (Normal) Range: [...] (Normal) CLARITY Cloudy (Normal) COLOR Yellow (Normal) 75-Gif-199151:30 CBC W/Diff, Automated Comments: [facility] [address] [place], [address] OVALOCYTE RARE (Normal) MACROCYTE 1+ [...] 4.2-5.4 WBC 9.1 K/mm3 (Normal) Range: 4.4-11.0 :30 Comprehensive Metabolic Profil Comments: [facility] [address] [place], [address] GAP 12 (Normal) Range: 5-15 CO2 30.0 [...] Comments: Please note revised GLUCOSE reference range daclxdzoy20/02/2018. 67-Wiq-254007:30 Lactic Acid Comments: Yes/No query for Sepsis Lactate Rule [facility] [address] [place], [place], [address] LACTIC ACID 6.7 mmol/L (Abnormal) Range: 0.4-2.0 Comments: Critical Result(s) Called Lisa RIVERA at: 20:23: by: BRITTANY TORRES 31-Osc-850198:30 Partial Thromboplast Time Comments: [facility] [address]at[address] [place], [address] PTT 41.3 s (Abnormal) Range: 24.1-36.2 98-Hyo-321492:30 Prothrombin Time w/INR Comments: [facility] [place], [address] INR 2.3 (Normal) PROTIME 25.6 s (Abnormal) Range: 11.7-14.9 89-Fuz-366220:30 Troponin-I Comments: [facility] [place], [address] TROPONIN-I 0.046 ng/mL (Abnormal) Comments: TROPONIN-I EXPECTED VALUES <0.045 Negative 0.045 - 0.590 Consistent with Cardiac Damage > OR = 0.600 Critical Value Not every elevated troponin is indicative of ME. T hesevalues should be used with clinical judgement in examiningthe patient's clinical picture for diagnosis. To establisha diagnosis of ME versus myocardial injury, there must be ademonstrated rise and/ or fall in the troponin values, inaddition to ischemic symptoms, EKG changes, new regionalwall motion abnormality, and/or angiographical evidence. PLEASE NOTE: REFERENCE RANGES EDITED 02/06/1805-Apr-201829-Jqd-332111:08 [facility]: [facility] [place], [id number] AMMONIA 20.0 umol/L (Normal) Range: 11-32 38-Pvz-864475:08 CBC-Complete Blood Cnt No Diff Comments: [place] [address] [place], [id number] MPV 10.6 fL (Normal) Range: 6.2-12.0 PLT [...] 4.2-5.4 WBC 6.6 K/mm3 (Normal) Range: 4.4-11.0 54-Gtp-619840:08 Comprehensive Metabolic Profil Comments: [facility] Xzftnejatr[address] [place], [address] GAP 9 (Normal) Range: 5-15 CO2 35.0 [...] Comments: Please note revised GLUCOSE reference range ppbvgagyb99/02/2018. 78-Xji-970200:08 Differential Comment Comments: [facility] Bbkoxcllwe9429 [address] [place], [phone] SMEAR COMMENT COMMENT (Normal) Comments: SLIDE SCANNED - 1+ ANISO NOTED. :55 Urinalysis, Complete Comments: How was Urine Obtained? [facility] Tpqdncjqyn8413 [address] [place], [id number] AMORPHOUS 2+ (Normal) HYALINE CAST 5-10 SEEN [...] Urine Drug Screen (VISTA) Comments: [facility] Zbnwhvikrb6679 [address] [place], [address] TO BE CONFIRMED (Normal) Comments: CONFIRMATORY TESTING [...] TESTING MUST BE ORDERED SEPARATELY. USE TESTMNEMONIC: [facility] :59 Bedside Glucose Comments: [facility] LaboratoryPoint of Zzlo7527 [address] [place] [address] BEDSIDE GLU 169 mg/dL (Abnormal) Range: 70-110 Comments: MANAGEMENT OF PATIENT CARE PER NURSING PROTOCOL :35 Basic Metabolic Profile (BMP) Comments: [facility] Srydmlxklv4158 [place], [address] GAP 16 (Abnormal) Range: 5-15 CO2 15.0 mmol/L (Abnormal) Range: 21.0-32.0 CL 104 mmol/L (Normal) Range: 98-107 K 6.2 mmol/L (Abnormal) Range: 3.5-5.1 Comments: Critical Result(s) Called at: 01:06:28 03/08/2018 by:ANSLEY STANFORD,MAIN LINE ASSEMBLER NA 135 mmol/L (Abnormal) Range: 136-145 CA [...] A.D.A. criteria.Please note revised GLUCOSE reference range ejlwdqzxr56/02/2018. :59 Acetaminophen (Tylenol) Level Comments: [facility] Qsxyivtihh8804 [place], [address] ACETAMINOPHEN 4.9 ug/mL (Abnormal) Range: 10.0-30.0 Comments: Slight Icterus, Result may be falsely decreased. 46-Nih-026881:59 Acetone Serum Comments: [facility] Xomqdydars5646 [address] [place], [phone] ACETONE SERUM NEGATIVE (Normal) :59 Alcohol, Blood (Medical)-Serum Comments: [facility] Rhthmxenjg5650 [place], [address] SERUM ETOH 8.0 mg/dL (Normal) Comments: The serum:whole blood ethanol ratio is approximately 1.14and varies slightly with hematocrit.Medical Alcohol reference interval and critical value innon-tolerant individuals; 50 - 100 Impairment 100 Intoxication 100 - 250 Severe Poisoning 250 - 400 Deep/possible fatal coma :59 Digoxin Level Comments: [facility] Jkxkwtakjf2745 [address] [place], [id number] DIG 0.32 ng/mL (Abnormal) Range: 0.80-2.00 :59 Lactic Acid Comments: Yes/No query for Sepsis Lactate Rule [facility] Xgmrnpeyam4230 [place], [address] LACTIC ACID 12.4 mmol/L (Abnormal) Range: 0.4-2.0 Comments: Critical Result(s) Called at: 00:52:58 03/08/2018 by:ANSLEY OWENSMAIN LINE ASSEMBLER 40-Hhc-934460:59 Partial Thromboplast Time Comments: [facility] Cbaqbfymtt1300 [place], [address] PTT 33.7 s (Normal) Range: 24.1-36.2 27-Ebj-188744:59 Prothrombin Time w/INR Comments: [facility] Rqmrsdpvyd9338 [place], [address] INR 2.4 (Normal) PROTIME 26.4 s (Abnormal) Range: 11.7-14.9 76-Zsa-125115:59 Salicylate Comments: [facility] Ktwxtwlqiw1506 [place], [address] SALICYLATE < 1.7 mg/dL (Abnormal) Range: 2.8-20.0 Comments: Slight Icterus, Result may be falsely decreased. 03-Eek-135253:02 Blood Gases by [facility] Comments: [facility] LaboratoryPoint of Dgsu59[address] [place], [place] [address] SO2 ISTAT 99 % (Normal) Range: 95-99 [...] Radial (Normal) BLD GAS TYPE ART (Normal) 18-Sud-634461:52 Bedside Glucose Comments: [facility] LaboratoryPoint of Knaq1156 [address] [place], [place] [address] BEDSIDE GLU 214 mg/dL (Abnormal) Range: 70-110 Comments: MANAGEMENT OF PATIENT CARE PER NURSING PROTOCOL 50-Vub-718730:37 Basic Metabolic Profile (BMP) Comments: [facility] Ykpsvtuxiu1675 [place], [address] GAP 19 (Abnormal) Range: 5-15 [...] A.D.A. criteria.Please note revised GLUCOSE reference range vyusbpcak52/02/2018. 89-Evk-774802:37 CBC W/Diff, Automated Comments: [facility] Eobzorsgbv5228 [address] [place], [place], [phone] CRENATED RBC 1+ (Normal) ANISO 1+ (Normal) [...] Range: 4.4-11.0 :37 Lipase Comments: [facility] [address] [place], [address] LIPASE 86 U/L (Normal) Range: 73-393 :37 Liver Profile Comments: [facility] Q[address] [place], [address] D BILI 1.07 mg/dL (Abnormal) Range: 0.00-0.30 [...] Range: 6.4-8.2 :37 Magnesium Comments: [facility] [address] [place], [place], [address] MG 2.0 mg/dL (Normal) Range: 1.6-2.6 Comments: Moderate Hemolysis, Result may be falsely increased. :37 Troponin-I Comments: [facility] Mqiylujzvd2876 [facility] [address] [place], [place], [address] TROPONIN-I 0.081 ng/mL (Abnormal) Comments: TROPONIN-I EXPECTED VALUES <0.045 Negative 0.045 - 0.590 Consistent with Cardiac Damage > OR = 0.600 Critical Value Not every elevated troponin is indicative of ME. T hesevalues should be used with clinical judgement in examiningthe patient's clinical picture for diagnosis. To establisha diagnosis of ME versus myocardial injury, there must be ademonstrated rise and/ or fall in the troponin values, inaddition to ischemic symptoms, EKG changes, new regionalwall motion abnormality, and/or angiographical evidence. PLEASE NOTE: REFERENCE RANGES EDITED 02/06/1824-Feb-20183-Ymw-135936:21 CMV ANTIBODY (20874) Comments: today; PATIENT NOT FASTINGPERFORMED BY: [facility] Kjbjpo5546 [facility] [id number] Cytomegalovirus (CMV) Ab, IgG <0.60 U/mL (Normal) Range: 0.00-0.59 Comments: Negative <0.60 Equivocal 0.60 - 0.69 Positive >0.69 9-Bwj-779066:21 HEPATITIS PANEL (97967) Comments: today; PATIENT NOT FASTINGPERFORMED BY: PanoptoRunnells Specialized HospitalCmadho4141 [facility] [id number] Hep C Virus Ab <0.1 {s/co_ratio} (Normal) Range: 0.0-0.9 Comments: Negative: < 0.8 Indeterminate: 0.8 - 0.9 Positive: > 0.9 . The CDC recommends that a positive HCV antibody result be followed up with a HCV Nucleic Acid Amplification test (187406). Hep B Core Ab, IgM Negative (Normal) HBsAg Screen Negative (Normal) Hep A Ab, IgM Negative (Normal) 8-Uef-253838:21 EBV Panel (75621) Comments: today; PATIENT NOT FASTINGPERFORMED BY: PanoptoRunnells Specialized HospitalEkvffy9489 [facility] [id number] Interpretation: [facility] (Normal) Comments: EBV Interpretation Chart . [...] <36.0 Equivocal 36.0 - 43.9 Positive >43.9 86-Uze-485419:19 CBC W/Diff, Automated Comments: Order Date: 02/23/18Order Info: [id number] - CBCDOrder Info: 99385-3 - [facility] Kjgnxhiyqe79[address] [place], [place], [address] MACROCYTE 1+ (Normal) ANISO RARE (Normal) Absolute [...] 4.2-5.4 WBC 6.9 K/mm3 (Normal) Range: 4.4-11.0 84-Oqn-776298:19 Comprehensive Metabolic Profil Comments: Order Date: 02/23/18Order Info: [id number] - CMPOrder Info: 1798-8 - AMYOrder Info: 3040-3 - [facility] Kignbueubu29[address] [place], [place], [address] GAP 11 (Normal) Range: 5-15 CO2 25.0 [...] A.D.A. criteria.Please note revised GLUCOSE reference range sbkorndgv65/02/2018. 37-Rmg-972449:19 Erythrocyte Sed Rate Comments: Order Date: 02/23/18Order Info: 0184-1 - CBCDOrder Info: 25639-4 - [facility] Rfnqqgflxp4266 [place], [address] SED RATE 16 mm/h (Normal) Range: 0-30 83-Xzv-871454:19 Lipase (61798) Comments: Order Date: 02/23/18Order Info: 0786- 1 - CMPOrder Info: 1798-8 - AMYOrder Info: 3040-3 - [facility] Aeqtafujzg2934 [address] [place], [address] LIPASE 92 U/L (Normal) Range: 73-393 35-Mxk-739283:19 Amylase (45099) Comments: Order Date: 02/23/18Order Info: 0786- 1 - CMPOrder Info: 1798-8 - AMYOrder Info: 3040-3 - [facility] Rrlhavapwm7229 [place], [address] ARIAN 27 U/L (Normal) Range: 25-115 5-Jgu-505497:15 Amylase Comments: CMP, CBCD IS FOR DR ORONA IS FOR [facility] Eawlxmiemu7710 [address] [place], [address] ARIAN 29 U/L (Normal) Range: 25-115 9-Kee-394429:15 CBC W/Diff, Automated Comments: CMP, CBCD IS FOR DR ORONA IS FOR [facility] Nzvnlinhee1311 [place], [address] ANISO 1+ (Normal) Absolute Lymph 0.41 {X10_3/ul} [...] 4.2-5.4 WBC 5.3 K/mm3 (Normal) Range: 4.4-11.0 5-Wfr-588749:15 Comprehensive Metabolic Profil Comments: CMP, CBCD IS FOR DR COLÓNT IS FOR [facility]ro[facility] hospitall[facility] Rbdsghvptr9501 [facility] [place], [address] GAP 9 (Normal) Range: 5-15 CO2 27.0 [...] A.D.A. criteria.Please note revised GLUCOSE reference range ukvbhxhmj51/02/2018. 9-Pmi-435136:15 Digoxin Level Comments: CMP, CBCD IS FOR DR ORONA IS FOR [facility] Vaimcrttiv3254 [place], [address] DIG 0.92 ng/mL (Normal) Range: 0.80-2.00 9-Wwd-863260:15 Lipase Comments: [facility], CBCD IS FOR DR ORONA IS FOR [facility] Iezabbjedg7376 [address] [place], [place], [phone] LIPASE 101 U/L (Normal) Range: 73-393 6-Cqr-883010:15 Lipid Profile Comments: [facility], CBCD IS FOR DR ORONA IS FOR [facility] Bipgsgkxan2061 [place], [address] VLDL 15 mg/dL (Normal) Range: [...] 200-240 mg/dL Borderline >240 mg/dL High Risk 8-Azv-205081:15 Magnesium Comments: CMP, CBCD IS FOR DR ORONA IS FOR [facility] Uacogoddrb9171 [place], [address] MG 1.8 mg/dL (Normal) Range: 1.6-2.6 3-Zlr-879037:15 Microalb:Creat Ratio,Random UR Comments: CMP, CBCD IS FOR DR ORONA IS FOR [facility] Ffthuevdsf0742 [place], [address] MALB:CREAT 34.3 {mg/g_CRE} (Abnormal) MICROALBUMIN,UR 58.6 mg/L (Normal) UR CREAT 171.00 mg/dL (Normal) 9-Qxp-588614:15 Thyroid Stim Hormone (TSH) Comments: CMP, CBCD IS FOR DR ORONA IS FOR [facility] Rviwlchorg2784 [place], [address] TSH 1.84 {uIU/mL} (Normal) Range: 0.358-3.74 4-Tiy-187525:15 Vitamin B12 383 pg/mL (Normal) Comments: CMP, CBCD IS FOR DR ORONA IS FOR [facility] Uulpuotxtq2769 [place], [address] Range: 211-911 7-Ikd-835903:15 Vitamin D,25 Hydroxy Comments: CMP, CBCD IS FOR DR ORONA IS FOR [facility] Qfwdlphang4172 [place], [address] Vitamin D 25-OH 72.0 ng/mL (Normal) Range: 29.95-100.01 Comments: Vitamin D 25(OH) Status Range Deficiency <20 ng/mL (50nmol/L) Insuffciency 20 - 30 ng/mL (50 - 75 nmol/L) Sufficiency 30 - 100 ng/mL (75 - 250 nmol/L) Toxicity >100 ng/mL (>250 nmol/L) :14 Blood Glucose , Office (61973) Blood Glucose , Office 137 (Normal) :14 HgA1C , Office (54534) HgA1C , Office 6.1 % (Normal) Range: 4.6 - 7.1 :35 CBC W/Diff, Automated Comments: [facility] Atylkgxaho9481 [place], [address] Absolute Lymph 1.30 {X10_3/ul} (Normal) Range: [...] 4.2-5.4 WBC 4.2 K/mm3 (Abnormal) Range: 4.4-11.0 82-Ggl-94732:33 Comprehensive Metabolic Profil Comments: Reason for Laboratory Test [facility] Frvatryuml5609 [place], [address] GAP 8 (Normal) Range: 5-15 CO2 31.0 mmol/L (Normal) Range: 21.0-32.0 CL 99 mmol/L (Normal) Range: 98-107 K 3.4 mmol/L (Abnormal) Range: 3.5-5.1 NA 138 mmol/L (Normal) Range: 136-145 T BILI 0.70 mg/dL (Normal) Range: 0.20-1.00 ALT 27 U/L (Normal) Range: 13-56 Comments: Please note revised ALT reference range zuemoehiy93/28/2018. ALK P 102 U/L (Normal) Range: 45-117 [...] A.D.A. criteria.Please note revised GLUCOSE reference range liapavqal52/02/2018. 89-Hkg-29778:33 LDH 198 U/L (Normal) Comments: Reason for Laboratory Test OVSerial Specimen #1, #2 or #3? 1WChildren[facility] Phdaflnbco9181 [address] [place], [place], [address] Range: 84-246 05-Ysw-331344:15 Culture, Urine Comments: [facility] Umyjvnznbd5256 [place], [address] CUUR See Note (Normal) Comments: VERBAL ORDER DR. IRVIN'S OFFICE Urine CultureORGANISM 1: Mixed Gram Positive OrganismsColony Count 11,000-25,000MIX CULTURE Mixed contaminants. Submit a new specimen if indicated. 61-Owx-594224:11 CBC W/Diff, Automated Comments: [facility] Fmgzbqirrl7056 [address] [place], [place], [id number] Absolute Lymph 1.34 {X10_3/ul} (Normal) Range: 0.83-4.51 [...] 4.2-5.4 WBC 5.4 K/mm3 (Normal) Range: 4.4-11.0 50-Pzd-770683:11 Comprehensive Metabolic Profil Comments: Comments: [facility] Tdttnfglgk1553 [place], [address] GAP 7 (Normal) Range: 5-15 CO2 28.0 mmol/L (Normal) Range: 21.0-32.0 CL 100 mmol/L (Normal) Range: 98-107 K 3.9 mmol/L (Normal) Range: 3.5-5.1 NA 135 mmol/L (Abnormal) Range: 136-145 T BILI 0.70 mg/dL (Normal) Range: 0.20-1.00 ALT 31 U/L (Normal) Range: 13-56 Comments: Please note revised ALT reference range lffojiqgh61/28/2018. ALK P 110 U/L (Normal) Range: 45-117 [...] A.D.A. criteria.Please note revised GLUCOSE reference range dvbjlxxfe60/02/2018. 07-Lip-490624:10 Urinalysis, Complete Comments: ORDERED UACDR.JACINDA ORDERED CMP AND CBCDComments: clean catchComments: clean catchHow was Urine Obtained? 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 Comments: Comments: use blood in [facility] Uanxulekaq7161 [place], [address] HCGSQUAL NEGATIVE {Negative} (Normal) Range: 0-9 Nonpreg HCG Qual triggr 2 m[iU]/mL (Normal) 3-Rbu-971936:41 Basic Metabolic Profile (BMP) Comments: [facility] Qpibjeuvrb8969 [place], [address] GAP 10 (Normal) Range: 5-15 CO2 [...] A.D.A. criteria.Please note revised GLUCOSE reference range itcczqlro65/02/2018. 1-Tml-533492:41 CBC-Complete Blood Cnt No Diff Comments: [facility] F[address]rtts[address] [place], [place], [phone] MPV 9.6 fL (Normal) Range: 6.2-12.0 PLT [...] 4.2-5.4 WBC 8.7 K/mm3 (Normal) Range: 4.4-11.0 9-Jqw-950037:41 Prothrombin Time w/INR Comments: [facility] G[address]ysjewl[address] [place], [address] INR 1.0 (Normal) PROTIME 12.9 s (Normal) Range: 11.7-14.9 :00 Culture, Urine Comments: [facility] Wtzeundhqv9241 [place], [address] CUUR See Note (Normal) Comments: Urine CultureORGANISM [...] S(NF) indicates non-formulary drug at [facility]. Approval by Infectious Disease Specialist required before non- formulary drugs may be ordered and/or dispensed. :27 AFP, Tumor Marker Comments: Is Patient ? NPatient's Weight (LBS.): 124Number of Fetuses: 0[facility] (refer to report for specific site)refer to report for address and phone number AFP TUMOR 2253 6.8 ng/mL (Normal) Range: 0.0-8.3 Comments: [employer] ECLIA methodologyPerformed at: CB - [facility] [address] [id number] Director: Omar Hood PhD, Phone: [phone] :27 CBC W/Diff, Automated Comments: [facility] Ypusoyqywv1913 [place], [address] Absolute Lymph 1.47 {X10_3/ul} (Normal) [...] 4.2-5.4 WBC 6.0 K/mm3 (Normal) Range: 4.4-11.0 40-Fmj-89910:27 Comprehensive Metabolic Profil Comments: [facility] Fsczrlryxu1661 [address] [place], [place], [address] GAP 9 (Normal) Range: 5-15 CO2 28.0 [...] :27 Microalb:Creat Ratio,Random UR Comments: [facility] [address]dsuc[address] [place], [place], [address] MALB:CREAT 17.4 {mg/g_CRE} (Normal) MICROALBUMIN,UR 37.5 mg/L (Normal) UR CREAT 215.00 mg/dL (Normal) :40 CBC W/Diff, Automated Comments: [facility] L[address]ue[address]cdio[address] [place], [place], [address] Absolute Lymph 1.60 {X10_3/ul} (Normal) Range: 0.83-4.51 [...] 4.2-5.4 WBC 10.9 K/mm3 (Normal) Range: 4.4-11.0 99-Xvf-29505:39 Comprehensive Metabolic Profil Comments: Order Date: 12/06/16Order Info: 0786-1 - *CMP Complete Metabolic PanelWChildren's Hospital for Rehabilitation Mccgrzkkej1840 [place], [place], [address] GAP 10 (Normal) Range: 5-15 CO2 27.0 [...] per A.D.A. criteria. :15 Culture, Urine Comments: [facility] Zyhrmpjhzg7016 [place], [address] CUUR See Note (Normal) Comments: Urine CultureORGANISM [...] S(NF) indicates non-formulary drug at [facility]. Approval by Infectious Disease Specialist required before non-formulary drugs may be ordered and/or dispensed. :35 HgA1C , Office (46526) HgA1C , Office 6.5 % (Normal) Range: 4.6 - 7.1 :07 AFP, Tumor Marker Comments: Is Patient ? [facility] (refer to report for specific site)refer to report for address and phone number AFP TUMOR 2253 8.5 ng/mL (Abnormal) Range: 0.0-8.3 Comments: [employer] ECLIA methodologyPerformed at: CB - [facility] [address] [id number] Director: Omar Hood PhD, Phone: [phone] :[phone] CBC W/Diff, Automated Comments: [facility] Alxaupsrck0791 [place], [address] Absolute Lymph 1.17 {X10_3/ul} (Normal) [...] Range: 4.4-11.0 :07 Comprehensive Metabolic Profil Comments: [facility] Ozgaiykdaf0330 [place], [address] GAP 9 (Normal) Range: 5-15 CO2 28.0 [...] the [place] Food and Drug Administration.Performed at: [facility] n1447 [place], [place] [id number] Director: Zia Jarvis MD, Phone: [phone] INS RES/DIAB RK . (Normal) LDL SIZE [...] :07 Vitamin D,25 Hydroxy Comments: [facility] [address] [place], [address] Vitamin D 25-OH 61.8 ng/mL (Normal) Comments: Vitamin D 25(OH) Status Range Deficiency <20 ng/mL (50nmol/L) Insuffciency 20 - 30 ng/mL (50 - 75 nmol/L) Sufficiency 30 - 100 ng/mL (75 - 250 nmol/L) Toxicity >100 ng/mL (>250 nmol/L) :48 Liver Profile Comments: [facility] Fce[address]se[address] [place], [address] D BILI 0.14 mg/dL (Normal) Range: 0.00-0.30 T BILI 0.50 mg/dL (Normal) Range: 0.20-1.00 ALT 57 U/L (Normal) Range: 12-78 ALK P 94 U/L (Normal) Range: 45-117 AST 40 U/L (Abnormal) Range: 15-37 GLOB 2.8 g/dL (Normal) Range: 2.3-3.5 ALB 3.9 g/dL (Normal) Range: 3.4-5.0 T PROT 6.7 g/dL (Normal) Range: 6.4-8.2 :45 Potassium Comments: [facility] A[address]wmgsf[address] [place], [address] K 4.3 mmol/L (Normal) Range: 3.5-5.1 :35 CBC W/Diff, Automated Comments: [facility] Ab[address]zwml[address] [place], [address] Absolute Lymph 1.24 {X10_3/ul} (Normal) Range: 0.83-4.51 [...] 4.2-5.4 WBC 3.6 K/mm3 (Abnormal) Range: 4.4-11.0 90-Ohc-92799:35 Comprehensive Metabolic Profil Comments: [facility] Yigefltaye87[address] [place], [address] GAP 10 (Normal) Range: 5-15 CO2 31.0 [...] 126 mg/dLsuggests DIABETES MELLITUS per A.D.A. criteria. 16-Gcw-76630:0 ASPIRATION (SLIDES ONLY) See Note (Normal) Comments: [facility] Ixvzduewxc58[address] [place], [address] 0 Comments: Patient: IFEOMA ASHRAF : 1965 (52/F) Acct Num: [id number] Phys: Alejandro Luis MD Unit Num: [id number] Loc: [facility] Specimen: [id number] Received: 03/18/17 - 1127 Spec Ty pe: ASPIRATION TISSUES TISSUES: COMMENT Correlation with clinical, radiologic findings and appropriate follow up are necessary. CYTOLOGY GROSS Received are ten smears labeled wi th the patient's name and designated per the requisition as left thyroid FNA. Submitted for staining. / 03/18/17 TC:5 CPT: 68524 CYTOLOGY STUDY Slides are reviewed. The specimen [...] Signed Toni Yepez 03/21/17 <signature on file> :30 HEPATITIS C ANTIBODY (11783) Comments: PATIENT NOT FASTINGPERFORMED BY: LabCoRunnells Specialized HospitalKfwsyg7253 [facility] [id number] Hep C Virus Ab <0.1 {s/co_ratio} (Normal) Range: 0.0-0.9 Comments: Negative: < 0.8 Indeterminate: 0.8 - 0.9 Positive: > 0.9 . The CDC recommends that a positive HCV antibody result be followed up with a HCV Nucleic Acid Amplification test (538425). :30 Potassium Serum (95467) Comments: PATIENT NOT FASTINGPERFORMED BY: [facility]CoRunnells Specialized HospitalTnrgmg7539 [facility] [id number] Potassium, Serum 4.8 mmol/L (Normal) Range: 3.5-5.2 :29 HgA1C , Office (11816) HgA1C , Office 7.9 % (Abnormal) Range: 4.6 - 7.1 :53 CBC W/Diff, Automated Comments: [facility] Emgwtivbdd6899 [place], [address] Absolute Lymph 1.57 {X10_3/ul} (Normal) Range: 0.83-4.51 [...] 4.2-5.4 WBC 4.8 K/mm3 (Normal) Range: 4.4-11.0 88-Ldv-71334:53 Comprehensive Metabolic Profil Comments: [facility] Kjjyeknwpj1167 [place], [address] GAP 11 (Normal) Range: 5-15 CO2 32.0 [...] criteria. :53 Lipid Profile Comments: [facility] Ifgitsuj[address] [place], [address] VLDL 37 mg/dL (Normal) Range: 5-40 LDL [...] :53 Microalb:Creat Ratio,Random UR Comments: [facility] Id[address]em[address]cj[address] [place], [address] MALB:CREAT 19.7 {mg/g_CRE} (Normal) MICROALBUMIN,UR 27.8 mg/L (Normal) UR CREAT 141.00 mg/dL (Normal) 00-Kmf-35385:53 Thyroid Stim Hormone (TSH) Comments: [facility] [address] [place], [address] TSH 2.39 {uIU/mL} (Normal) Range: 0.358-3.74 52-Bqp-48607:53 Vitamin D,25 Hydroxy Comments: [facility] Oryrygmfat9854 [address] [place], [id number] Vitamin D 25-OH 79.9 ng/mL (Normal) Comments: Vitamin D 25(OH) Status Range Deficiency <20 ng/mL (50nmol/L) Insuffciency 20 - 30 ng/mL (50 - 75 nmol/L) Sufficiency 30 - 100 ng/mL (75 - 250 nmol/L) Toxicity >100 ng/mL (>250 nmol/L) 02-Wez-091744:08 CBC W/Diff, Automated Comments: [facility] [address], [address] Absolute Lymph 2.04 {X10_3/ul} (Normal) Range: 0.83-4.51 [...] 4.2-5.4 WBC 9.0 K/mm3 (Normal) Range: 4.4-11.0 41-Cwj-327983:08 Comprehensive Metabolic Profil Comments: [facility] U[address]mlkenuw[address] [place], [address] GAP 9 (Normal) Range: 5-15 CO2 27.0 [...] 126 mg/dLsuggests DIABETES MELLITUS per A.D.A. criteria. 77-Qzq-393663:00 Culture, Urine Comments: [facility] Jahmqhiyzf23[address] [place], [place], [id number] CUUR See Note (Normal) Comments: Urine CultureORGANISM 1: Mixed Gram Positive OrganismsColony Count >100,000MIX CULTURE Mixed contaminants. Submit a new specimen if indicated. 7-Fwd-832344:25 CBC W/Diff, Auto - EPLAB Comments: At [facility] Outpatient [facility] [place] Medical Oncologypatients receive CBC w/auto Differential ONLY. Physicianwill place an order for a manual differential or Pathologistreview at his discretion. [facility]. [address] [place] [place] [address] [place] [address] FELT CARBONIZER: MATEO CASTANEDA DO PH:[phone] Medical Specialty [facility] [address]izjpixuzy[address] [place], [place], [address] Absolute Lymph 1.42 {X10_3/uL} (Normal) Range: 0.83-4.51 [...] 4.2-5.4 WBC 6.3 K/mm3 (Normal) Range: 4.4-11.0 0-Rhf-639513:25 Comprehensive Metabolic Profil Comments: Order Date: 06/07/16Order Date: 06/07/16Serial Specimen #1, #2 or #3? [address] [place] [address] [address] [place], [place], [id number] GAP 11 (Normal) Range: 5-15 CO2 24.0 [...] 200 mg/dLsuggests DIABETES MELLITUS per A.D.A. criteria. 0-Uip-605798:25 LDH 208 U/L (Normal) Comments: Order Date: 06/07/16Order Date: 06/07/16Serial Specimen #1, #2 or #3? [address] [place] [address] [address]actps[address]kyk[address] [place], [place], [id number] Range: 84-246 9-Zgg-553753:25 Uric Acid Comments: Order Date: 06/07/16Order Date: 06/07/16erial Specimen #1, #2 or #3? [facility] [address]ugauvnyjr[address] [place], [place], [id number] URIC 3.8 mg/dL (Normal) Range: 2.6-6.0 Comments: The drugs N-Acetylcysteine and Metamizole may falsely deressthis assay. :10 HgA1C , Office (37000) HgA1C , Office 8.0 % (Abnormal) Range: 4.6 - 7.1 :10 Blood Glucose , Office (32057) Blood Glucose , Office 223 (Normal) :24 AFP, Tumor Marker Comments: Is Patient ? [facility] (refer to report for specific site)refer to report for address and phone number AFP TUMOR 2253 8.5 ng/mL (Abnormal) Range: 0.0-8.3 Comments: [employer] ECLIA methodologyPerformed at: [facility] [address] [id number] Director: Omar Hood PhD, Phone: [phone] :24 CBC W/Diff, Automated Comments: [facility] Zmokeaprmr30[address] [place], [address] Absolute Lymph 1.35 {X10_3/ul} (Normal) Range: 0.83-4.51 [...] 4.2-5.4 WBC 4.1 K/mm3 (Abnormal) Range: 4.4-11.0 29-Dzy-54763:24 Comprehensive Metabolic Profil Comments: [facility] Kdiombjpef55[address] [place], [place], [phone] GAP 9 (Normal) Range: 5-15 CO2 27.0 [...] 126 mg/dLsuggests DIABETES MELLITUS per A.D.A. criteria. 83-Sst-69070:24 NMR Lipoprofile Comments: [facility] (refer to report [...] the US Food and Drug Administration.Performed at: [address] [id number] Director: Zia Jarvis MD, Phone: [phone] INS RES/DIAB RK . (Normal) LDL SIZE [...] mg/dL (Normal) Range: 100-199 LIPIDS . (Normal) 15-Mqk-360974:53 CBC W/Diff, Automated Comments: [facility] Awegmxdrwl1827 [place], [address] Absolute Lymph 1.41 {X10_3/ul} (Normal) Range: 0.83-4.51 [...] 4.2-5.4 WBC 12.2 K/mm3 (Abnormal) Range: 4.4-11.0 45-Eep-527536:53 Comprehensive Metabolic Profil Comments: [facility] Bfhdrkvxyl[address] [place], [place], [phone] GAP 13 (Normal) Range: 5-15 CO2 24.0 [...] 200 mg/dLsuggests DIABETES MELLITUS per A.D.A. criteria. 14-Jej-38703:42 CBC W/Diff, Automated Comments: [facility] Hjiijljvfp[address] [place], [place], [address] Absolute Lymph 1.92 {X10_3/ul} (Normal) Range: 0.83-4.51 [...] Range: 4.4-11.0 :42 Comprehensive Metabolic Profil Comments: [facility] Ocqraywjnq[address] [place], [place], [address] GAP 11 (Normal) Range: 5-15 CO2 25.0 [...] :55 Magnesium Comments: Order Date: 06/07/16Order Date: 06/07/16W[facility] Gnjragcxdq7[address] [place], [place], [address] MG 2.0 mg/dL (Normal) Range: 1.8-2.4 :57 CBC W/Diff, Auto - EPLAB Comments: [facility] Medical Oncologypatients receive CBC w/auto Differential ONLY. Physicianwill place an order for a manual differential or Pathologistreview at his discretion. [facility]. [address] [place] [place] [address] [place] [address] FELT CARBONIZER: MATEO CASTANEDA DO PH:[phone] Medical Specialty [facility] [address] [place], [address] Absolute Lymph 1.38 {X10_3/uL} (Normal) [...] Profil Comments: Order Date: 06/07/16OV Order #: [id number] Specimen #1, #2 or #3? 1 [id number] Medical Specialty [facility] [address] [place], [address] GAP 13 (Normal) Range: 5-15 CO2 24.0 [...] LDH 238 U/L (Normal) Comments: Order Date: 06/07/16OV Order #: [id number] Specimen #1, #2 or #3? 1 [id number]'s Hospital for Rehabilitation Jfpelphatb9573 [place], [address] Range: 84-246 :56 Magnesium Comments: Order Date: 06/07/16OV Order #: [id number] Specimen #1, #2 or #3? 1 [id number] Medical Specialty Hospital [facility] Upgphlqudb05[address] [place], [address] MG 1.5 mg/dL (Abnormal) Range: 1.8-2.4 :56 Uric Acid Comments: Order Date: 06/07/16OV Order #: [id number] Specimen #1, #2 or #3? 1 [id number] Medical Specialty Hospital [facility] Znaertmejs8[address] [place], [address] URIC 4.8 mg/dL (Normal) Range: 2.6-6.0 Comments: The drugs N-Acetylcysteine and Metamizole may falsely deressthis assay. :30 Liver Profile Comments: [facility] Pxxnbufwas[address] [place], [phone](355) D BILI 0.13 mg/dL (Normal) Range: 0.00-0.30 T BILI 0.40 mg/dL (Normal) Range: 0.20-1.00 ALT 60 U/L (Normal) Range: 12-78 ALK P 126 U/L (Normal) Range: 50-136 AST 37 U/L (Normal) Range: 15-37 GLOB 2.7 g/dL (Normal) Range: 2.3-3.5 ALB 3.4 g/dL (Normal) Range: 3.4-5.0 T PROT 6.1 g/dL (Abnormal) Range: 6.4-8.2 :33 CBC W/AUTO DIFF WBC Comments: PATIENT NOT FASTINGPERFORMED BY: [facility]CoR[facility]ells [facility] HospitalElpjge3269 [facility] [id number] Information: NURSE DRAW ([id number]) Immature Grans (Abs) 0.0 {x10E3/uL} (Normal) Range: [...] PANEL, COMPREHENSIVE Comments: PATIENT NOT FASTINGPERFORMED BY: [facility] Rsjltc1397 [facility] [id number] (29242) ALT (SGPT) 41 [iU]/L (Abnormal) Range: 0-32 [...] (Abnormal) Range: 65-99 :09 HgA1C , Office (20309) HgA1C , Office 7.0 % (Normal) Range: 4.6 - 7.1 :14 AFP, Tumor Marker Comments: Is Patient ? [facility] (refer to report for specific site)refer to report for address and phone number AFP TUMOR 2253 7.7 ng/mL (Normal) Range: 0.0-8.3 Comments: [employer] ECLIA methodologyPerformed at: [facility] [place] [id number] Director: Omar Hood PhD, Phone: [phone] :[phone] CBC W/Diff, Automated Comments: [facility] [address] [place] [address], [address] ; will review on 05/17 Absolute [...] 4.2-5.4 WBC 4.3 K/mm3 (Abnormal) Range: 4.4-11.0 06-Xnx-75356:14 Comprehensive Metabolic Profil Comments: [facility] Efddecoouh1090 [place], [address] GAP 7 (Normal) Range: 5-15 CO2 28.0 [...] per A.D.A. criteria. :14 Lipid Profile Comments: [facility] E[address] [place], [address] VLDL 36 mg/dL (Normal) Range: 5-40 LDL [...] :14 Microalb:Creat Ratio,Random UR Comments: [facility] Pbfl[address] [place], [address] ; will review on 05/17 MALB:CREAT 14.6 {mg/g_CRE} (Normal) MICROALBUMIN,UR 23.4 mg/L (Normal) UR CREAT 160.00 mg/dL (Normal) :14 Thyroid Stim Hormone (TSH) Comments: [facility] [address] [place], [address] TSH 1.89 {uIU/mL} (Normal) Range: 0.358-3.74 :14 Vitamin D,25 Hydroxy Comments: [facility] Oz[address]quzfuz[address] [place], [address] ; will review on 05/17 Vitamin D 25-OH 53.2 ng/mL (Normal) Comments: Vitamin D 25(OH) Status Range Deficiency <20 ng/mL (50nmol/L) Insuffciency 20 - 30 ng/mL (50 - 75 nmol/L) Sufficiency 30 - 100 ng/mL (75 - 250 nmol/L) Toxicity >100 ng/mL (>250 nmol/L) :23 CBC W/Diff, Automated Comments: [facility] [address] [place], [address] Absolute Lymph 1.65 {X10_3/ul} (Normal) Range: 0.83-4.51 [...] Range: 4.4-11.0 :23 Comprehensive Metabolic Profil Comments: [facility] Sfhqltjewr[address] [place], [address] GAP 9 (Normal) Range: 5-15 CO2 30.0 [...] 126 mg/dLsuggests DIABETES MELLITUS per A.D.A. criteria. 59-Wpb-802597:07 HgA1C , Office (64364) HgA1C , Office 8.5 % (Abnormal) Range: 4.6 - 7.1 :15 CBC W/Diff, Automated Comments: [facility] [address] [place], [place], [phone] Absolute Lymph 1.76 {X10_3/ul} (Normal) Range: 0.83-4.51 [...] Range: 4.4-11.0 :15 Comprehensive Metabolic Profil Comments: [facility] Plzzyitkcg[address] [place], [place], [address] GAP 13 (Normal) Range: 5-15 CO2 23.0 [...] 200 mg/dLsuggests DIABETES MELLITUS per A.D.A. criteria. 38-Jbd-57970:15 Lipid Profile Comments: [facility] C[address]ymssjw[address] [place], [address] VLDL 45 mg/dL (Abnormal) Range: 5-40 LDL [...] :15 Vitamin D,25 Hydroxy Comments: [facility] Kimytfmxth[address] [place], [address] Vitamin D 25-OH 28.8 ng/mL (Normal) Comments: Vitamin D 25(OH) Status Range Deficiency <20 ng/mL (50nmol/L) Insuffciency 20 - 30 ng/mL (50 - 75 nmol/L) Sufficiency 30 - 100 ng/mL (75 - 250 nmol/L) Toxicity >100 ng/mL (>250 nmol/L); ADDENDA: non-emergent till apt :35 CBC W/Diff, Automated Comments: [facility] V[address]emxpyxta65[address] [place], [phone] Absolute Lymph 1.26 {X10_3/ul} (Normal) Range: 0.83-4.51 [...] :35 Comprehensive Metabolic Profil Comments: [facility] [address]qshynttkp[address] [place], [address] GAP 14 (Normal) Range: 5-15 CO2 26.0 [...] ONLY) See Note (Normal) Comments: [facility] Vfyffcuilg[address] [place], [place], [phone] 0 Comments: Patient: IFEOMA ASHRAF : 1965 (50/F) Acct Num: [id number] Phys: Matt Luis MDel Unit Num: [id number] Loc: LABSPEC Specimen: [id number] Received: 01/06/16 - 1129 Spec Ty pe: ASPIRATION TISSUES TISSUES: COMMENT Correlation with clinical, radiologic findings and appropriate follow up are necessary. CYTOLOGY GROSS Received are 10 smears labeled wit h the patient's name and designated per the requisition as fine needle aspiration left thyroid. Submitted for staining. 01/06/16 TC:5 CPT:21232 CYTOLOGY STUDY Slides are reviewed. The spe [...] Signed Toni Yepez 01/07/16 <signature on file> 1-Yqf-568605:29 CBC W/Diff, Auto - EPLAB Comments: At [facility] Outpatient [facility] Medical Oncologypatients receive CBC w/auto Differential ONLY. Physicianwill place an order for a manual differential or Pathologistreview at his discretion. [facility]. [address] [place] [place] [address] [place] [address] FELT CARBONIZER: MATEO CASTANEDA DO PH:[phone] Medical Specialty Hospital [facility] [address]uavpzk[address] [place], [place], [address] Absolute Lymph 1.49 {X10_3/uL} (Normal) Range: 0.83-4.51 [...] 4.2-5.4 WBC 4.6 K/mm3 (Normal) Range: 4.4-11.0 9-Bft-696329:28 Comprehensive Metabolic Profil Comments: Serial Specimen #1, #2 or #3? 1[facility] [address]wocldfivz[address] [place], [place], [address] GAP 8 (Normal) Range: 5-15 CO2 26.0 [...] 126 mg/dLsuggests DIABETES MELLITUS per A.D.A. criteria. 0-Nmt-990010:28 LDH 213 U/L (Normal) Comments: Serial Specimen #1, #2 or #3? [address] [place] [address] [address] [place], [place], [address](339) Range: 84-246 1-Uzx-557364:28 Magnesium Comments: Serial Specimen #1, #2 or #3? [address] [place] [address] A[address]qupevg9168 [place], [address] MG 1.6 mg/dL (Abnormal) Range: 1.8-2.4 1-Ewd-656463:28 Uric Acid Comments: Serial Specimen #1, #2 or #3? [address] [place] [address] Cympkbknmt12[address] [place], [address] URIC 4.8 mg/dL (Normal) Range: 2.6-6.0 26-Nov-20159:36 Miscellaneous Lab Procedure Comments: Comments: [id number] URINE TOX,RUN LOWEST TESTTest(s) Ordered: [id number] URINE TOX,RUN LOWEST TESTSelect [facility] Pbdvillahy0111 [address] [place], [place], [phone] MISC Comments: [id number] 6+OXYCODONE-BUND (ng/mL)DRUG RESULT SCREEN CUTOFF____ Amphetamines,Urine Negat LAB (Normal) scott ng/mL 1000Amphetamine test includes Amphetamine and Methamphetamine.Barbiturates Negative ng/mL 200Benzodiazepines Negative ng/mL 200Cannabinoid TEST Negative ng/mL 20Cocaine (Metab) Negative ng/mL 300Opiates Positive ng/mL 300 Opiates test includes Codeine, Morphine, Hydromorphone, [place] codone.Please Note:Confirmation performed by Mass SpectrometryCodeine NegativeMorphine NegativeHydromorphone NegativeHydrocodone Positive Hydrocodone Confirm 1950 ng/mL 300Oxycodone/Oxymorphone,Urine Negative ng/mL 300 Test includes Oxydodone and Oxymorphone. TESTI NG PERFORMED AT [facility]. ORIGINAL REPORT ON FILE IN LAB CONTAINS ADDITIONAL TEST SITE INFORMATION. 26-Nov-20159:36 Urine Drug Screen (VISTA) Comments: Comments: [id number] URINE TOX,RUN LOWEST TESTList of Drugs Taken or Suspected? [facility]WChildren[facility] [address]dtte[address] [place], [address] ; ordered by Basali THC NEGATIVE (Normal) [...] TESTING MUST BE ORDERED SEPARATELY. USE TESTMNEMONIC: [facility] 22-Icj-390369:20 HgA1C , Office (44988) HgA1C , Office 7.3 % (Abnormal) Range: 4.6 - 7.1 :13 AFP, Tumor Marker Comments: Is Patient ? [facility] (refer to report for specific site)refer to report for address and phone number AFP TUMOR 2253 6.4 ng/mL (Normal) Range: 0.0-8.3 Comments: [employer] ECLIA methodologyPerformed at: [employer] [facility] [address] [id number] Director: Omar Hood PhD, Phone: [phone] :[phone] CBC W/Diff, Automated Comments: [facility] [address] [place] [address], [id number] Absolute Lymph 1.59 {X10_3/ul} (Normal) Range: 0.83-4.51 [...] 4.2-5.4 WBC 5.3 K/mm3 (Normal) Range: 4.4-11.0 23-Ape-85740:13 Comprehensive Metabolic Profil Comments: [facility] Xpuuztenru[address] [place], [address] GAP 10 (Normal) Range: 5-15 CO2 24.0 [...] criteria. :13 Lipid Profile Comments: [facility] [address]vqjhvtg[address] [place], [address] ; non-emergent and pt has a [...] :13 Microalb:Creat Ratio,Random UR Comments: [facility] Nhzbehuhnm6575 [facility] [place], [address] MALB:CREAT 17.0 {mg/g_CRE} (Normal) MICROALBUMIN,UR 43.7 mg/L (Normal) UR CREAT 257.00 mg/dL (Normal) :13 Thyroid Stim Hormone (TSH) Comments: [facility] Fklcufvnqe4148 [place], [address] TSH 1.82 {uIU/mL} (Normal) Range: 0.358-3.74 :13 Vitamin D,25 Hydroxy Comments: [facility] Tuqoblujwu5[address] [place], [address] ; will review at 11/10 appt Vitamin D 25-OH 39.8 ng/mL (Normal) Comments: Vitamin D 25(OH) Status Range Deficiency <20 ng/mL (50nmol/L) Insuffciency 20 - 30 ng/mL (50 - 75 nmol/L) Sufficiency 30 - 100 ng/mL (75 - 250 nmol/L) Toxicity >100 ng/mL (>250 nmol/L) :40 CBC W/Diff, Automated Comments: [facility] [address]ewlet[address] [place], [place], [phone] Absolute Lymph 1.47 {X10_3/ul} (Normal) Range: 0.83-4.51 [...] Range: 4.4-11.0 :40 Comprehensive Metabolic Profil Comments: [facility] [address]iutbpwoqg[address] [place], [place], [address] GAP 13 (Normal) Range: 5-15 CO2 24.0 [...] per A.D.A. criteria. :49 HgA1C , Office (26509) HgA1C , Office 7.8 % (Abnormal) Range: 4.6 - 7.1 :09 CBC W/Diff, Automated Comments: [facility] Qimwxneeuf[address] [place], [place], [address] Absolute Lymph 1.07 {X10_3/ul} (Normal) Range: 0.83-4.51 [...] 4.2-5.4 WBC 5.3 K/mm3 (Normal) Range: 4.4-11.0 72-Alz-441597:09 Comprehensive Metabolic Profil Comments: [facility] Wnhvouqnkh5554 [address] [place], [place], [address] GAP 7 (Normal) Range: 5-15 CO2 28.0 [...] 200 mg/dLsuggests DIABETES MELLITUS per A.D.A. criteria. 1-Ani-446317:42 CBC W/Diff, Automated Comments: At [facility] Outpatient [facility] Medical Oncologypatients receive CBC w/auto Differential ONLY. Physicianwill place an order for a manual differential or Pathologistreview at his discretion. [facility]. [address] [place] [place] [address] [place] [address] FELT CARBONIZER: MATEO CASTANEDA DO PH:[phone] performed at:[facility] [address] [place], [place] [address] Absolute Lymph 1.60 {X10_3/ul} (Normal) Range: 0.83-4.51 [...] 4.2-5.4 WBC 7.0 K/mm3 (Normal) Range: 4.4-11.0 1-Nqc-989902:42 Comprehensive Metabolic Profil Comments: Serial Specimen #1, #2 or #3? 1Test performed at:[facility] Hxovpvhigf1759 [address] [place], [place] [address] GAP 9 (Normal) Range: 5-15 CO2 25.0 [...] Comments: Please note revised CREATININE reference range aqgnofqok55/22/2015. BUN 20 mg/dL (Abnormal) Range: 7-18 GLU 118 mg/dL (Abnormal) Range: 70-110 Comments: Fasting Glucose result from 110 to <126 mg/dLsuggests IMPAIRED HOMEOSTASIS per A.D.A. criteria. 3-Xyv-398581:42 LDH 133 U/L (Normal) Comments: Serial Specimen #1, #2 or #3? 1Test performed at:[facility] Ghiojemrbg6925 [facility] [place] [address] Range: 84-246 6-Hme-734043:42 Uric Acid Comments: Serial Specimen #1, #2 or #3? 1Test performed at:[facility] Fixnvwahea[address] [place] [address] URIC 4.6 mg/dL (Normal) Range: 2.6-6.0 2-Rck-165006:02 CBC W/Diff, Automated Comments: Test performed at:[facility] [address] [place] [address] ; handled by vicki Absolute Lymph 1.23 [...] 4.2-5.4 WBC 4.1 K/mm3 (Abnormal) Range: 4.4-11.0 1-Dbm-067540:02 Comprehensive Metabolic Profil Comments: Test performed at:[facility] Nwxkblyhts35[address] [place] [address] GAP 12 (Normal) Range: 5-15 CO2 23.0 [...] Comments: Please note revised CREATININE reference range pjvhgpwoe22/22/2015. BUN 11 mg/dL (Normal) Range: 7-18 GLU 214 mg/dL (Abnormal) Range: 70-110 Comments: Glucose result greater than or equal to 200 mg/dLsuggests DIABETES MELLITUS per A.D.A. criteria. :49 VITAMIN B-12 (CYANOCOBALAMIN) Comments: PATIENT NOT FASTINGPERFORMED BY: [facility] Yhbuav[address] [facility] [place] [id number] ([address]) Vitamin B12 464 pg/mL (Normal) Range: 211-946 :49 Vitamin D Hydroxy (73219) Comments: PATIENT NOT FASTINGPERFORMED BY: [facility] Jlgdhm60[address] [facility] [id number] Vitamin D, 25-Hydroxy 11.5 ng/mL (Abnormal) Range: 30.0-100.0 Comments: Vitamin D deficiency has been defined by the [place] ofThe [facility] Systemcine and an Endocrine Society practice guideline as alevel of serum 25-OH vitamin D less than 20 ng/mL (1,2).The Endocrine Society went on to further define vitamin Dinsufficiency as a level between 21 and 29 ng/mL (2).1. IOM ([place] of Medicine). 2010. Dietary reference intakes for calcium and D. [place]: The National Academies Press.2. Sami MF, Sophie NC, Xiomara LARES, et al. Evaluation, treatment, and prevention of vitamin D deficiency: an Endocrine Society clinical practice guideline. JCEM. 2010; 96(7):1911-30. :49 CBC W/AUTO DIFF WBC Comments: PATIENT NOT FASTINGPERFORMED BY: [facility] Tficjo6460 [facility] [id number] Information: [id number] (72583) Immature Grans (Abs) 0.0 {x10E3/uL} (Normal) Range: [...] 3.77-5.28 WBC 6.1 {x10E3/uL} (Normal) Range: 3.4-10.8 24-Rhg-023326:28 URINE GENESIS CULTURE-NITA COL Comments: PATIENT NOT FASTINGPERFORMED BY: LabCoRunnells Specialized HospitalFpfeib9060 [facility] [id number] Information: SRC:[facility] [id number] COUNT (07916) Antimicrobial MIHEAD (Normal) Comments: S = Susceptible; [...] Imipenem Meropenem Urine Final report (Abnormal) Culture,Comprehensive 97-Emy-848723:24 Urinalysis, Office (76950) UA - LEUKOCYTE ESTERASE Trace (Normal) UA [...] Bedside Glucose Comments: Test performed at:[facility] Wifxnponnj4204 [place], [place] [address] BEDSIDE GLU 129 mg/dL (Abnormal) Range: 70-110 Comments: MANAGEMENT OF PATIENT CARE PER NURSING PROTOCOL 31-Mar-20159:47 Urinalysis, Office (74847) UA - LEUKOCYTE ESTERASE Trace (Normal) UA - NITRITE Negative (Normal) URINE UROBILINGN NITA TIMED 2 mg/dL (Normal) UA - PROTEIN 300 mg/dL (Normal) UA - PH 6.0 (Normal) UA - BLOOD Hemolyzed Large (Normal) UA - SPECIFIC GRAVITY 1.030 (Abnormal) UA - KETONES 15 mg/dL (Abnormal) UA - BILIRUBIN Moderate (Normal) UA - GLUCOSE Negative (Normal) 56-Vaq-374091:57 Basic Metabolic Profile (BMP) Comments: Test performed at:[facility] [address] [place] [address] GAP 11 (Normal) Range: 5-15 CO2 27.0 [...] 126 mg/dLsuggests DIABETES MELLITUS per A.D.A. criteria. 22-Jnk-222956:57 Digoxin Level Comments: Test performed at:[facility] [address]fus[address] [place] [address] DIG 1.17 ng/mL (Normal) Range: 0.80-2.00 39-Srw-027246:57 Hemoglobin A1c Comments: Test performed at:[facility] [address]ks[address] [place] [address] HGB A1C 7.0 % (Abnormal) Range: 4.2-6.3 71-Kcd-899834:57 Thyroid Stim Hormone (TSH) Comments: Test performed at:[facility] Ol[address]yhs[address] [place] [address] TSH 0.89 {uIU/mL} (Normal) Range: 0.358-3.74 7-Jkr-625949:17 Urine Culture,Comprehensive Comments: PATIENT NOT FASTINGPERFORMED BY: LabCoRunnells Specialized HospitalEsdnjq5061 [facility] [id number] Information: SRC:[facility] [id number] Result 1 BETAGB (Abnormal) Comments: Beta hemolytic [...] Urine Obtained? CLEAN CATCHTest performed at:[facility] [address]ajaspwvs[address] [place] [address] AMORPHOUS 1+ URATE (Normal) MUCUS, [...] W/Diff, Automated Comments: Test performed at:[facility] Lbcstmbwmp3[address] [place] [address] Absolute Lymph 1.29 {X10_3/ul} (Normal) [...] 28-Feb-20153:55 Comprehensive Metabolic Profil Comments: Test performed at:[facility] Kxwxctipep9238 [address] [place], [place] [address] GAP 10 (Normal) Range: 5-15 CO2 26.0 [...] :55 Lipase Comments: Test performed at:[facility] Fmzwleegeb3444 [facility] [place] [address] LIPASE 142 U/L (Normal) Range: 70-290 :40 HgA1C , Office (95962) HgA1C , Office 7.4 % (Abnormal) Range: 4.6 - 7.1 :03 CBC W/Diff, Automated Comments: Test performed at:[facility] Cpxlokwzxz0126 [facility]. [place], [place] [address] Absolute Lymph 1.31 {X10_3/ul} (Normal) Range: 0.83-4.51 [...] 4.2-5.4 WBC 5.1 K/mm3 (Normal) Range: 4.4-11.0 45-Zgz-179521:03 Comprehensive Metabolic Profil Comments: Test performed at:[facility] [address] [place] [address] GAP 11 (Normal) Range: 5-15 CO2 26.0 [...] 126 mg/dLsuggests DIABETES MELLITUS per A.D.A. criteria. 65-Mkm-746253:00 Culture, Urine Comments: Test performed at:[facility] [address] [place] [address] CUUR See Note (Normal) Comments: Urine CultureORGANISM 1: Streptococcus agalactiae (B)[place] Count 1000-10,000 Streptococcus agalactiae (B): REACTION Ampicillin $ <=0.25 S Benzylpenicillin NF <=0.06 S Ceftriaxone (other dx) $ <=0.12 S Inducable Clindamycin Resistan - Linezolid $$$$ <=2 S Vancomycin $ 0.5 S(NF) indicates non-formulary drug at [facility]. Approval by Infectious Disease Specialist required before non-formulary drugs may be ordered and/or dispensed. * CLSI guidelines does not recommend testing of cephalosporins. This interpretation is deduced from Beta-lactam/penicillin results.; ADDENDA: handled by edvin 37-Tdl-90942:32 CBC W/Diff, Auto - EPLAB Only Comments: At [facility], [facility] patientsreceive CBC w/auto Differential ONLY. Physician will placean order for a manual differential or Pathologist review athis discretion. [facility]. [address] [place] [place] [address] [place] [address] FELT CARBONIZER: MATEO CASTANEDA DO PH:[phone] performed at:[facility] Dkycqdhspu[address] [place], [place] [address] ; Richie Absolute Neut 2.7 {X10_3/uL} (Normal) [...] #2 or #3? 1Test performed at:[facility] [address]qp[address] [place] [address] Range: 87-241 Comments: ADDENDA: richie :34 TSH (28423) Comments: PATIENT WAS FASTINGPERFORMED BY: [employer] [facility]inteCoursePeerC[facility] Health [id number] TSH 1.240 {uIU/mL} (Normal) Range: 0.450-4.500 :34 LIPID PANEL (88896) Comments: PATIENT WAS FASTINGPERFORMED BY: Tilera70 [facility] [id number] LDL/HDL Ratio 2.6 {ratio_units} (Normal) Range: 0.0-3.2 [...] CREATININE RATIO Comments: PATIENT WAS FASTINGPERFORMED BY: [employer]il[employer] [id number]; non- emergent till apt tomorrow (42485) AND (82823) Microalb/Creat Ratio 14.8 {mg/g_creat} (Normal) Range: 0.0-30.0 Microalbumin, Urine 44.5 ug/mL (Abnormal) Range: 0.0-17.0 Creatinine, Urine 301.0 mg/dL (Abnormal) Range: 15.0-278.0 :34 METABOLIC PANEL, Comments: PATIENT WAS FASTINGPERFORMED BY: LabCoRunnells Specialized HospitalSepqqi8073 [facility] [id number] Information: [id number] COMPREHENSIVE (27248) ALT (SGPT) 21 [iU]/L (Normal) Range: 0-32 [...] Glucose, Serum 161 mg/dL (Abnormal) Range: 65-99 :10 HgA1C , Office (88497) HgA1C , Office 7.2 % (Abnormal) Range: 4.6 - 7.1 :47 CBC W/Diff, Automated Comments: Test performed at:[facility] [address] [place], [place] [id number] ; Handled by Vicki Absolute Lymph 1.43 [...] :47 Comprehensive Metabolic Profil Comments: Test performed at:[facility] [address]rb[address] [place], [place] [id number] GAP 6 (Normal) Range: 5-15 CO2 30.0 [...] Microscopic Examination Comments: PATIENT NOT FASTINGPERFORMED BY: [place] [facility] [id number] Bacteria Few (Normal) Mucus Threads Present (Normal) Epithelial Cells (non renal) 0-10 {/hpf} (Normal) Range: 0 - 10 RBC 0-2 {/hpf} (Normal) Range: 0 - 2 WBC >30 {/hpf} (Abnormal) Range: 0 - 5 :01 Urinalysis, Routine Comments: PATIENT NOT FASTINGPERFORMED BY: [employer] [facility] [id number] Microscopic Examination See below: (Normal) Comments: Microscopic was indicated and was performed. Nitrite, Urine Negative (Normal) Urobilinogen,Semi-Qn 0.2 mg/dL (Normal) Range: 0.0-1.9 Bilirubin Negative (Normal) Occult Blood Negative (Normal) Ketones Trace (Abnormal) Glucose Negative (Normal) Protein 1+ (Abnormal) WBC Esterase 3+ (Abnormal) Appearance Turbid (Abnormal) Urine-Color Yellow (Normal) pH 6.0 (Normal) Range: 5.0-7.5 Specific [place] 1.030 (Normal) Range: 1.005-1.030 30-Uxn-122300:18 CBCD ALC 1.30 {X10_3/ul} (Normal) Range: 0.83-4.51 [...] 4.2-5.4 WBC 4.5 K/mm3 (Normal) Range: 4.4-11.0 :18 CMP GAP 7 (Normal) Range: 5-15 CO2 [...] mg/dLsuggests DIABETES MELLITUS per A.D.A. criteria. :01 UZLCV-NLGHWIMOSZB-IPRLU (39464) Comments: PATIENT NOT FASTINGPERFORMED BY: PanoptoRunnells Specialized HospitalHtsflu1092 [facility] [id number] AFP, Serum, Tumor Marker 7.1 ng/mL (Normal) Range: 0.0-8.3 Comments: Khanh ECLIA methodology :01 PTT (Activated Partial Comments: PATIENT NOT FASTINGPERFORMED BY: [employer] Vbpshb9312 [facility] [id number] Thromboplastin Time) (89891) aPTT 25 {sec} (Normal) Range: 24-33 Comments: This test has not been validated for monitoring unfractionated heparintherapy. aPTT-based therapeutic ranges for unfractionated heparintherapy have not been established. For general guidelines onHeparin monitoring, refer to the [facility] Directory of Services. :01 PT (Prothrobim Time) (82405) Comments: PATIENT NOT FASTINGPERFORMED BY: [facility]6370 [facility] [id number] Prothrombin Time 10.4 {sec} (Normal) Range: 9.1-12.0 INR 1.0 (Normal) Range: 0.8-1.2 Comments: Reference interval is for non-anticoagulated patients. . Suggested INR therapeutic range for Vitamin K anta gonist therapy: Standard Dose (moderate intensity therapeutic range): 2.0 - 3.0 Higher intensity therapeutic range 2.5 - 3.5 :01 TSH (50599) Comments: PATIENT NOT FASTINGPERFORMED BY: [facility]6370 [facility] [id number] TSH 1.450 {uIU/mL} (Normal) Range: 0.450-4.500 :01 CBC W/AUTO DIFF WBC Comments: PATIENT NOT FASTINGPERFORMED BY: [address] [id number] Information: [id number] (23139) Immature Grans (Abs) 0.0 {x10E3/uL} (Normal) Range: [...] CREATININE RATIO Comments: PATIENT NOT FASTINGPERFORMED BY: ZwamyCoRunnells Specialized HospitalTijanl7072 [facility] [id number] (27285) AND (41359) Microalb/Creat Ratio 26.4 {mg/g_creat} (Normal) Range: 0.0-30.0 Microalbumin, Urine 96.0 ug/mL (Abnormal) Range: 0.0-17.0 Creatinine, Urine 364.2 mg/dL (Abnormal) Range: 15.0-278.0 :01 METABOLIC PANEL, COMPREHENSIVE Comments: PATIENT NOT FASTINGPERFORMED BY: ZwamyCoRunnells Specialized HospitalEzzogp8735 [facility] [id number] (91848) ALT (SGPT) 19 [iU]/L (Normal) Range: 0-32 [...] mg/dL (Abnormal) Range: 65-99 30-Sep-20148:01 LIPID PANEL (49648) Comments: PATIENT NOT FASTINGPERFORMED BY: LabCoRunnells Specialized HospitalAygqbw3672 [facility] [id number] LDL/HDL Ratio 2.1 {ratio_units} (Normal) Range: 0.0-3.2 [...] (Normal) Range: 100-199 :19 HgA1C , Office (23560) HgA1C , Office 6.3 % (Normal) Range: [...] 4.2-5.4 WBC 7.0 K/mm3 (Normal) Range: 4.4-11.0 0-Jhe-006138:07 CMP GAP 7 (Normal) Range: 5-15 CO2 [...] & Aerobic Comments: PATIENT NOT FASTINGPERFORMED BY: [place] [facility] [id number] Information: SRC:EMIL [id number] RIGHT EYE Culture (21199) Antimicrobial MIHEAD (Normal) Comments: S = Susceptible; [...] hours. Anaerobic Culture Final report (Normal) :57 KIJHU-BQBWNPVDYMU-WTOMK (79319) Comments: PATIENT WAS FASTINGPERFORMED BY: [employer] ([employer])[facility] [id number] AFP, Serum, Tumor Marker 9.2 ng/mL (Abnormal) Range: 0.0-8.3 Comments: Khanh ECLIA methodology :57 PTT (Activated Partial Comments: PATIENT WAS FASTINGPERFORMED BY: [employer] RoadDublin [place] [id number] Thromboplastin Time) (63950) aPTT 26 {sec} (Normal) Range: 24-33 Comments: This test has not been validated for monitoring unfractionated heparintherapy. aPTT-based therapeutic ranges for unfractionated heparintherapy have not been established. For general guidelines onHeparin monitoring, refer to the [facility] Directory of Services. :57 PT (Prothrobim Time) (39253) Comments: PATIENT WAS FASTINGPERFORMED BY: [facility]6370 [facility] [id number] Prothrombin Time 10.5 {sec} (Normal) Range: 9.1-12.0 INR 1.0 (Normal) Range: 0.8-1.2 Comments: Reference interval is for non-anticoagulated patients. . Suggested INR therapeutic range for Vitamin K anta gonist therapy: Standard Dose (moderate intensity therapeutic range): 2.0 - 3.0 Higher intensity therapeutic range 2.5 - 3.5 :57 TSH (17658) Comments: PATIENT WAS FASTINGPERFORMED BY: [facility]6370 [facility] [id number] TSH 3.200 {uIU/mL} (Normal) Range: 0.450-4.500 :57 CBC WITH MANUAL DIFF Comments: PATIENT WAS FASTINGPERFORMED BY: [facility]6370 [facility] [id number] Information: [id number] (15737) Immature Grans (Abs) 0.0 {x10E3/uL} (Normal) Range: [...] 3.77-5.28 WBC 4.5 {x10E3/uL} (Normal) Range: 3.4-10.8 63-Fcp-27769:57 METABOLIC PANEL, COMPREHENSIVE Comments: PATIENT WAS FASTINGPERFORMED BY: LabCoRunnells Specialized HospitalRutlpy7489 [facility] [id number] (70132) ALT (SGPT) 15 [iU]/L (Normal) Range: 0-32 [...] (Abnormal) Range: 65-99 :29 HgA1C , Office (24923) HgA1C , Office 5.4 % (Normal) Range: [...] 7-18 GLU 76 mg/dL (Normal) Range: 70-110 0-Lcn-018422:50 LIPID LDL 82 mg/dL (Normal) Range: 0-130 [...] CHOL 150 mg/dL (Normal) Comments: <200 mg/dL Bwsvzlqzv521-967 mg/dL Borderline>240 mg/dL High Risk :50 HgA1C , Office (42349) HgA1C , Office 5.8 % (Normal) Range: [...] be sent to the patient by the [facility] within 30 days. Approximately 10% of breast cancers are not detected by mammography. Anormal mammogram should not delay biopsy of a clinically suspiciousabnormality. Signed:Prashant Delgadillo M.D.[facility] 2012 at 9:19:01 AM [id number] Signed GP/GP If you are the referring physician and would like to consult with theradiologist who provided this interpretation, please herbie Bonilla M.D. at [phone]. If this radiologist is unavailable, youwill be directed to another radiologist to assist. If you are a patient with a question regarding this report, pleaseco ntactyour referring physician directly. Professional Interpretation Provided By: [employer], Phone , These documents contain legally protected [...] destructionofthese documents. Dictated on 06/15/13918 by Faustina KING,Stanislavranscribed on 06/15/13919 by ITS IMPORTSign by Faustina KING,Prashant on 06/15/13920 Sign by: Prashant Delgadillo MD 93-Ihv-77812:27 THYROID Radiology Report See Note Comments: STUDY: [...] Delgadillo M.D.June 15, 2013 at 2:56:26 PM [id number] Signed GP/GP If you are the referring physician and would like to consult with theradiologist who provided this interpretation, please contact Sarmad Bonilla at [phone]. If this radiologist is unavailable, youwill be directed to another radiologist to assist. If you are a patient with a question regarding this report, pleasecontactyour referring physician directly. Profes sional Interpretation Provided By: [employer], Phone , These documents contain legally protected [...] destructionofthese documents. Dictated on 06/15/13 1456 by Duke Delgadillo MDribed on 173 by ITS IMPORTSign by Prashant Delgadillo MD on 06/15/13 1733 Sign by: Prashant Delgadillo MD 0-Poj-561322:18 URINE GENESIS CULTURE-NITA COL Comments: PATIENT NOT FASTINGPERFORMED BY: [facility]6370 [facility] [id number] Information: SRC:UR [id number] COUNT (48111) Antimicrobial MIHEAD (Normal) Comments: S = Susceptible; [...] primarily for treating urinary tract infections. (CLSI, I352-G83,2009) Urine Culture,Comprehensive Final report (Normal) :48 Urinalysis, Office (29403) UA - LEUKOCYTE ESTERASE Large (Normal) UA - NITRITE Positive (Normal) URINE UROBILINGN NITA TIMED 2 mg/dL (Normal) UA - PROTEIN Negative mg/dL (Normal) UA - BLOOD Negative (Normal) UA - KETONES Moderate mg/dL (Normal) UA - BILIRUBIN Moderate (Normal) UA - GLUCOSE Small mg/dL (Normal) :06 MICROALBUMIN: CREATININE RATIO Comments: PATIENT WAS FASTINGPERFORMED BY: LabCoRunnells Specialized HospitalEgmqrr3310 [facility] [id number] (23247) AND (35213) Microalb/Creat Ratio 27.4 {mg/g_creat} (Normal) Range: 0.0-30.0 Microalbumin, Urine 85.2 ug/mL (Abnormal) Range: 0.0-17.0 Creatinine, Urine 311.1 mg/dL (Abnormal) Range: 15.0-278.0 03-Qhv-54496:06 METABOLIC PANEL, Comments: PATIENT WAS FASTINGPERFORMED BY: LabCoRunnells Specialized HospitalSbtlbg3608 Mohinder Pan [place] [id number] Information: ADD [id number] AND DRAW FEE 99 6660 COMPREHENSIVE (74864) ALT (SGPT) 29 [iU]/L (Normal) Range: 0-32 [...] 76 mg/dL (Normal) Range: 65-99 :06 TSH (17227) Comments: PATIENT WAS FASTINGPERFORMED BY: EventapRunnells Specialized HospitalZqbdth8530 [facility] [id number] TSH 3.040 {uIU/mL} (Normal) Range: 0.450-4.500 :06 LIPID PANEL (51598) Comments: PATIENT WAS FASTINGPERFORMED BY: EventapRunnells Specialized HospitalLsawqy99[address] [place] [address] [id number] LDL/HDL Ratio 2.4 {ratio_units} (Normal) Range: 0.0-3.2 HDL Cholesterol 55 mg/dL (Normal) Comments: According to ATP-III Guidelines, HDL-C >59 mg/dL is considered anegative risk factor for CHD. LDL Cholesterol Calc 134 mg/dL (Abnormal) Range: 0-99 VLDL Cholesterol Ramandeep 18 mg/dL (Normal) Range: 5-40 Cholesterol, Total 207 mg/dL (Abnormal) Range: 100-199 Triglycerides 89 mg/dL (Normal) Range: 0-149 :06 [id number]-[id number] (32203) Comments: PATIENT WAS FASTINGPERFORMED BY: EventapRunnells Specialized HospitalKsrquf8000 [facility] [id number] AFP, Serum, Tumor Marker 5.4 ng/mL (Normal) Range: 0.0-8.3 Comments: Khanh ECLIA methodology :06 PTT (Activated Partial Comments: PATIENT WAS FASTINGPERFORMED BY: EventapRunnells Specialized HospitalPevmnl5666 [facility] [id number] Thromboplastin Time) (14913) aPTT 27 {sec} (Normal) Range: 24-33 Comments: This test has not been validated for monitoring unfractionated heparintherapy. aPTT-based therapeutic ranges for unfractionated heparintherapy have not been established. For general guidelines onHeparin monitoring, refer to the [facility] Directory of Services. :06 PT (Prothrobim Time) (28917) Comments: PATIENT WAS FASTINGPERFORMED BY: REINALDO [facility] Udwiso5629 [address] [place] [id number] INR 1.1 (Normal) Range: 0.8-1.2 Comments: Reference interval is for non-anticoagulated patients. . Suggested INR therapeutic range for Vitamin K anta gonist therapy: Standard Dose (moderate intensity therapeutic range): 2.0 - 3.0 Higher intensity therapeutic range 2.5 - 3.5 Prothrombin Time 11.0 {sec} (Normal) Range: 9.1-12.0 :51 HgA1C , Office (32806) HgA1C , Office 5.0 % (Normal) Range: [...] mg/dL (Normal) Range: 70-110 :03 Rapid Flu (26763 x 2) Influenza A Ag positive b (Normal) :27 METABOLIC PANEL, COMPREHENSIVE Comments: PATIENT WAS FASTINGPERFORMED BY: LabCoRunnells Specialized HospitalTtbcgp6458 [facility] [id number] (52730) ALT (SGPT) 25 [iU]/L (Normal) Range: 0-32 [...] Glucose, Serum 82 mg/dL (Normal) Range: 65-99 93-Czr-00196:27 LIPID PANEL (09750) Comments: PATIENT WAS FASTINGPERFORMED BY: LabCoRunnells Specialized HospitalYlpepv8658 [facility] [id number] LDL/HDL Ratio 0.9 {ratio_units} (Normal) Range: 0.0-3.2 LDL Cholesterol Calc 29 mg/dL (Normal) Range: 0-99 VLDL Cholesterol Ramandeep 17 mg/dL (Normal) Range: 5-40 HDL Cholesterol 32 mg/dL (Abnormal) Comments: According to ATP-III Guidelines, HDL-C >59 mg/dL is considered anegative risk factor for CHD. Cholesterol, Total 78 mg/dL (Abnormal) Range: 100-199 Triglycerides 84 mg/dL (Normal) Range: 0-149 51-Npj-37102:27 TSH (56446) Comments: PATIENT WAS FASTINGPERFORMED BY: [facility]Asc[facility] Hospital6370 [facility] [id number] TSH 3.990 {uIU/mL} (Normal) Range: 0.450-4.500 :27 CBC WITH MANUAL DIFF Comments: PATIENT WAS FASTINGPERFORMED BY: [facility] [id number] Information: [id number] (30982) Immature Grans (Abs) 0.0 {x10E3/uL} Range: 0.0-0.1 [...] 9:39 Comments: Khanh ECLIA methodologyPerformed at: CB [facility]Co[address] [id number] Director: Manuelito Mendez PhD, Phone: [phone] 98-Wmm-75303:39 CBCMD ANC 2.4 3/uL (Normal) Range: 2.0-7.7 [...] 4.2-5.4 WBC 3.5 {k/mm3} (Abnormal) Range: 4.4-11.0 12-Dea-85494:39 CMP GAP 7 (Normal) Range: 5-15 CO2 [...] CHOL 130 mg/dL (Normal) Comments: <200 mg/dL Xgjkmnqhh328-455 mg/dL Borderline>240 mg/dL High Risk :39 MIACRE tMICROCREAT 16.5 {mg/g_CRE} (Normal) MIALB 23.3 mg/L (Normal) CREU 141.0 mg/dL (Normal) :39 PT INR 1.1 (Normal) PTP 13.6 s (Normal) Range: 11.9-14.4 :39 PTT PTTP 29.5 s (Normal) Range: 24.1-36.2 :17 Rapid Flu (95627 x 2) Influenza A Ag neg (Normal) :29 HgA1C , Office (41740) HgA1C , Office 5.9 % (Normal) Range: 4.6 - 7.1 :53 FT3 2.9 pg/mL (Normal) Range: 2.18-3.98 :53 T4F 1.26 ng/dL (Normal) Range: 0.76-1.46 :53 TPO 8 {IU/mL} (Normal) Range: 0-34 Comments: Performed at: - [facility] [address] [id number] Director: Codi Robles MD, Phone: [phone] :53 TSH 1.23 {uIU/mL} (Normal) Range: 0.358-3.74 :04 HgA1C , Office (98467) HgA1C , Office 5.8 % (Normal) Range: [...] :26 CMP Comments: ORDERED TSH LIPID CMP CBCMD [facility]FerJACINDA ORDERED VITD CMP CBCD GAP 8 (Normal) [...] :26 LIPID Comments: ORDERED TSH LIPID CMP CBCMD [facility]ENTERJORGE ORDERED VITD CMP CBCD VLDL 21 [...] (Normal) Comments: ORDERED TSH LIPID CMP CBCMD [facility]ITALJACINDA ORDERED VITD CMP CBCD Range: 30.0-100.0 Comments: Vitamin D deficiency has been defined by the [place] of[place] and an Endocrine Society practice guideline as alevel of serum 25-OH vitamin D less than 20 ng/mL (1,2).The Endocrine Society went on to further define vitamin Dinsufficiency as a level between 21 and 29 ng/mL (2).1. IOM ([place] of [employer]). 2010. Dietary reference intakes for calcium and D. [place]: The National Academies Press.2. Sami MF, Sophie MOORE, Xiomara LARES, et al. Evaluation, treatment, and prevention of vitamin D deficiency: an Endocrine Society clinical practice guideline. JCEM. 2010; 96(7): 1911-30.Performed at: [address] [id number] Director: Codi Robles MD, Phone: [phone] 27-Jan-20128:02 BILAT SCRN DIGITAL & CAD Radiology [...] Signed GP/GP Professional Interpretat ion Provided By: PayRight Health SolutionsPunt [facility]iologyMer[facility], , To consult with a radiologist regarding this report, please call our [id number] line @ Dicta dani on 01/27/12 0813 by Faustina KING,Stanislavranscribed on 01/27/12 0950 by ITS IMPORTSign by Faustina KING,Prashant on 01/27/12 0951 Sign by: Prashant Delgadillo MD 58-Tph-208322:24 HgA1C , Office (63893) HgA1C , Office 5.7 % (Normal) Range: 4.6 - 7.1 54-Wii-699432:24 Blood Glucose , Office (46808) Blood Glucose , Office 89 (Normal) 26-Iio-230255:31 Urinalysis, Office (48140) UA - LEUKOCYTE ESTERASE Small (Normal) UA - NITRITE Positive (Normal) URINE UROBILINGN NITA TIMED Normal mg/dL (Normal) UA - PROTEIN 300 mg/dL (Normal) UA - PH 6.0 (Normal) UA - SPECIFIC GRAVITY 1.025 (Normal) UA - KETONES Small mg/dL (Normal) UA - BILIRUBIN Moderate (Normal) UA - GLUCOSE Negative (Normal) :15 HgA1C , Office (02981) HgA1C , Office 6.8 % (Normal) Range: 4.6 - 7.1 :15 Blood Glucose , Office (39537) Blood Glucose , Office 162 (Normal) 75-Lls-284864:22 THYROID Radiology Report See Note (Normal) Comments: [...] thyroid. Dictated on 09/07/11 112 2 by Pattie Delgadillo MDeleTranscribed on 09/08/11 1329 by ITS IMPORTSign by Prashant Delgadillo MD on 09/08/11 1330 Sign by: Prashant Delgadillo MD 75-Lpf-06120:59 COMP METABOLIC GAP 9 (Normal) Range: 5-15 [...] Comments: PATIENT NOT FASTINGPERFORMED BY: REINALDO [facility] Thmofp3557 [facility] [id number] Information: SRC:URC [id number] COUNT (63518) Antimicrobial MIHEAD (Normal) Comments: S = Susceptible; [...] Final report Culture,Comprehensive (Normal) :32 Urinalysis, Office (79393) UA - LEUKOCYTE ESTERASE Moderate (Normal) URINE UROBILINGN NITA TIMED Normal mg/dL (Normal) UA - PROTEIN 100 mg/dL (Normal) UA - PH 6.0 (Normal) UA - BLOOD Hemolyzed Large (Normal) UA - SPECIFIC GRAVITY 1.025 (Normal) UA - KETONES Negative mg/dL (Normal) UA - BILIRUBIN Negative (Normal) UA - GLUCOSE Negative (Normal) :28 Blood Glucose , Office (61400) Blood Glucose , Office 223 (Normal) :10 Urinalysis, Office (02025) UA - BILIRUBIN Small (Normal) UA - BLOOD Hemolyzed Large (Normal) UA - GLUCOSE Small (Normal) Comments: 100 UA - KETONES Negative mg/dL (Normal) UA - LEUKOCYTE ESTERASE Trace (Normal) UA - NITRITE Positive (Normal) UA - PH 5.0 (Normal) UA - PROTEIN 300 mg/dL (Normal) UA - SPECIFIC GRAVITY 1.020 (Normal) URINE UROBILINGN NITA TIMED 2 mg/dL (Normal) 2-Wkc-487244:29 URINE GENESIS CULTURE-NITA COL Comments: PATIENT NOT FASTINGPERFORMED BY: [facility] Ctoenh0944 [facility] [id number] Information: SRC:UR [id number] COUNT (10420) Antimicrobial MIHEAD (Normal) Comments: S = Susceptible; [...] mL (Normal) Urine Final report (Normal) Culture,Comprehensive 7-Dgd-350057:31 Urinalysis, Office (87330) UA - BILIRUBIN Large (Normal) UA - BLOOD Hemolyzed Moderate (Normal) UA - GLUCOSE Moderate (Normal) Comments: 250 mg/dL UA - KETONES Small mg/dL (Normal) Comments: 15mg/dL UA - LEUKOCYTE ESTERASE Large (Normal) UA - NITRITE Positive (Normal) UA - PH 5.0 (Normal) UA - PROTEIN 300 mg/dL (Normal) UA - SPECIFIC GRAVITY 1.015 (Normal) URINE UROBILINGN NITA TIMED 8 mg/dL (Normal) 33-Ffv-37627:28 CBCD,SMEAR DIFF RED CELL MORPH SeeNote {NORMAL} [...] (Abnormal) Range: 0.358-3.74 :28 HgA1C , Office (22544) HgA1C , Office 8.3 % (Abnormal) Range: 4.6 - 7.1 :28 Blood Glucose , Office (35990) Blood Glucose , Office 176 (Normal) :24 [...] 200-240 mg/dL Borderline >240 mg/dL High Risk 19-Lwe-012867:54 BRAIN/HEAD W/WO CONTRAST Radiology See Note Comments: [...] These are unchanged. Dictated on 10/14/10855 by Faustina KING,PattieeleTranscribed on 10/14/10 0856 by ITS IMPORTSign by Prashant Delgadillo MD on 02/09/11 1702 Sign by: Prashant Delgadillo MD :44 HgA1C , Office (12339) HgA1C , Office 7.4 % (Abnormal) Range: 4.6 - 7.1 :44 Blood Glucose , Office (78126) Blood Glucose , Office 206 (Normal) :37 [...] Report See Note (Normal) Comments: Exam Number: [id number] AMMOGRAPHY - BILATERAL SCREENING INDICATION:Routine annual screening [...] attaching a ResultCode to this exam. ADDENDUM: [id number] HPBI/MDS Reported By: PRASHANT DELGADILLO :14 HgA1C , Office (62461) HgA1C , Office 7.0 % (Normal) Range: 4.6 - 7.1 :14 Blood Glucose , Office (75596) Blood Glucose , Office 164 (Normal) :30 LASHA DIR SEMI-QL LASHA DIRECT 24 AU/mL (Normal) :30 ANTI-dsDNA AB 10 {IU/mL} (Normal) :30 TSH 6.39 {uIU/mL} (Abnormal) Range: 0.358-3.74 54-Ipb-301525:35 C-REACTIVE PROTEIN (28093) Comments: PATIENT NOT FASTINGPERFORMED BY: [facility]wamyAsc[facility] Hospital6370 Research [facility] [id number] C-Reactive Protein, Quant 6.5 mg/L (Abnormal) Range: 0.0-4.9 09-Ncb-108499:35 SED RATE ERYTHROCYTE (77670) Comments: PATIENT NOT FASTINGPERFORMED BY: [facility] [id number] Sedimentation Rate-Westergren 14 mm/h (Normal) Range: 0-20 :35 RHEUMATOID FACTOR-QUANT (18877) Comments: PATIENT NOT FASTINGPERFORMED BY: [facility] [id number] RA Latex Turbid. 7.6 {IU/mL} (Normal) Range: 0.0-13.9 36-Zit-686123:35 LASHA (ANTINUCLEAR ANTIBODY) Comments: PATIENT NOT FASTINGPERFORMED BY: [facility] [id number] (63191) LASHA Direct Positive (Abnormal) 80-Gql-509445:35 T3, FREE (TRIDOTHYRONINE) (17492) Comments: PATIENT NOT FASTINGPERFORMED BY: [facility] [id number] Triiodothyronine,Free,Serum 2.8 pg/mL (Normal) Range: 2.0-4.4 43-Xfy-421485:35 T4, FREE (THYROXINE) (64866) Comments: PATIENT NOT FASTINGPERFORMED BY: [facility] [id number] T4,Free(Direct) 0.76 ng/dL (Abnormal) Range: 0.82-1.77 97-Kog-814328:35 Anti-TPO Antibody (87931) Comments: PATIENT NOT FASTINGPERFORMED BY: [facility] HospitalFokpwc75[facility] [id number] Thyroid Peroxidase (TPO) Ab <6 {IU/mL} (Normal) Range: 0-34 :35 TSH (47541) Comments: PATIENT NOT FASTINGPERFORMED BY: [facility] HospitalOhymvu0077 [facility] [id number] TSH 5.630 {uIU/mL} (Abnormal) Range: 0.450-4.500 Comments: Please note reference interval change :35 METABOLIC PANEL, Comments: PATIENT NOT FASTINGPERFORMED BY: [facility]Asc[facility] [id number] Information: [id number],T89885 COMPREHENSIVE (85895) ALT (SGPT) 55 [iU]/L (Abnormal) Range: 0-40 [...] Glucose, Serum 151 mg/dL (Abnormal) Range: 65-99 49-Pdh-827413:02 GENESIS CULTURE-OTHER (01505) Comments: PATIENT NOT FASTINGPERFORMED BY: [facility] Uecopz2594 [facility] [id number] Information: SRC:THRT [id number] Result 1 Yeast isolated. (Normal) Comments: Moderate growthRequest for further identification must be madewithin 1 week. Upper Respiratory Culture Final report (Normal) 71-Tqo-15711:37 Rapid Strep Test, Office (91133) Rapid Strep Test, Office Negative (Normal) 43-Yjb-849091:11 THYROID (HP) Radiology Report See Note (Normal) Comments: Exam Number: [id number] CLINICAL:This is a 45-year-old female patient with history of thyroid nodule. ULTRASOUND THYROID TECHNIQUE:Multiple views were obtained. COMPARISON:Comparison is made with prior s osvaldo dated August 29, 2008. FINDINGS:Normal size, contour [...] CHOL 147 mg/dL (Normal) Comments: <200 mg/dL Ekfvlngmk845-339 mg/dL Borderline>240 mg/dL High Risk HDL 32 [...] :41 TSH 4.85 {uIU/mL} (Abnormal) Range: 0.358-3.74 92-Rji-730736:50 URINE GENESIS CULTURE-NITA COL Comments: PATIENT NOT FASTINGPERFORMED BY: CB [facility] Lorllh1285 [facility] [id number] Information: SRC:UR ADD B06021 COUNT (45320) Result 1 Klebsiella pneumoniae Comments: 1,000 Colonies/mL [...] STrimethoprim/Sulfa S Urine Final report (Normal) Culture,Comprehensive 46-Mik-16334:55 Urinalysis, Office (69354) UA - LEUKOCYTE ESTERASE Small (Normal) UA - NITRITE Negative (Normal) URINE UROBILINGN NITA TIMED Normal mg/dL (Normal) UA - PROTEIN 30 mg/dL (Normal) UA - PH 6.0 (Normal) UA - BLOOD Negative (Normal) UA - SPECIFIC GRAVITY 1.020 (Normal) UA - KETONES Negative mg/dL (Normal) UA - BILIRUBIN Negative (Normal) UA - GLUCOSE Negative (Normal) 7-Krp-738520:37 PET/CT,TUMOR,BASE-THIGH,SUBS Radiology Report See Note (Normal) Comments: Exam Number: [id number] EXAM: Body PET study Head to Mid [...] consistent with normal physiologic distribution of theradiopharmaceutical. (Elkel et al, Radiology 224:783, 2002). Enhanced radiopharmaceutical concentration demonstrated at the le velof the laryngeal structures, contiguous to the cricopharyngeusmusculature and cricoid cartilage is consistent with normalphysiologic distribution of the radiopharmaceutical. (Koffi etal, Journal of Nuclear Medicine 44:398P, 2003). w Reported By: ADELA MOLINA 5-Bsc-840523:00 PRANEETH+ELPU24 3467 ALBUMIN,U 37.7 % (Normal) XFHIU-8-JTOC,U 3.2 % (Normal) DUQFQ-0-TDVA,U 7.6 % (Normal) BETA GLOB,U 23.1 % (Normal) GAMMA GLOB,U 28.5 % (Normal) PRANEETH RESULT,U Comment (Normal) Comments: No monoclonality detected. M-SPIKE,UR% SeeNote % (Normal) Comments: Result: Not Observed PROTEIN, U24 62.1 {mg/24_hr} Range: 30.0-150.0 (Normal) PROTEIN,UR 2.3 mg/dL (Normal) Range: 0.0-15.0 3-Hhw-308775:15 C-REACTIVE PROT < 2.90 mg/L (Normal) Range: 0.0-3.0 Comments: C-Reactive Protein (CRP) provides useful information for thediagnosis, therapy and monitoring of inflammatory processesand associated diseases. For the evaluation of Relative Riskfor Cardiovascular Dise ase, a High Sensitivity CRP (HSCRP)should be ordered. 1-Zhi-431344:15 CBCD,SMEAR DIFF PLT EST SeeNote (Normal) Comments: [...] 4.2-5.4 WBC 4.3 K/mm3 (Abnormal) Range: 4.4-11.0 2-Lnz-603521:15 COMP METABOLIC CL 104 mmol/L (Normal) Range: [...] <126 mg/dLsuggests IMPAIRED HOMEOSTASIS per A.D.A. criteria. 4-Ouh-443102:15 ESR SED RATE 11 mm/h (Normal) Range: 0-20 4-Ihr-290022:15 LDH 197 U/L (Abnormal) Range: 100-190 7-Ahy-309829:15 LIPID HDL 30 mg/dL (Abnormal) Comments: Reference [...] CHOL 154 mg/dL (Normal) Comments: <200 mg/dL Tqfqiwqrm203-873 mg/dL Borderline>240 mg/dL High Risk 9-Drz-633503:15 PROT.[id number] NOTE Comment (Normal) Comments: Protein electrophoresis scan will follow via computer,mail, or production line mechanic delivery.Performed at: CB - [facility] [address] [place], [place] [id number] Director: Kamlesh Arana MD ALBUMIN,UR 54.2 % (Normal) DMSXW-3-JRGK,U 1.2 % (Normal) ZGMWG-8-DPRM,U 9.4 % (Normal) BETA GLOB,U 23.4 % (Normal) GAMMA GLOB,U 11.8 % (Normal) M-SPIKE,U SeeNote % (Normal) Comments: Result: Not Observed PROTEIN,UR 13.6 mg/dL (Normal) Range: 0.0-15.0 5-Zbk-245259:15 SPE [id number] A/G RATIO 1.8 (Normal) Range: 0.7-2.0 GLOBULIN, [...] electrophoresis scan will follow via computer,mail, or production line mechanic delivery. M-SPIKE SeeNote g/dL (Normal) Comments: Result: Not Observed GAMMA GLOBULIN 0.4 g/dL (Abnormal) Range: 0.5-1.6 ALBUMIN 3.9 g/dL (Normal) Range: 3.2-5.6 ALPHA-1 GLOBUL 0.2 g/dL (Normal) Range: 0.1-0.4 ALPHA-2 GLOBUL 0.7 g/dL (Normal) Range: 0.4-1.2 BETA GLOBULIN 0.9 g/dL (Normal) Range: 0.6-1.3 PROTEIN,TOTAL 6.1 g/dL (Normal) Range: 6.0-8.5 42-Rpk-221841:28 BRAIN/HEAD WITHOUT CONTRAST Radiology Report See Note (Normal) Comments: Exam Number: [id number] CT SCAN OF BRAIN HISTORYLytic lesion, lymphoma. Scans were obtained at 2.5-mm intervals through the posterior fossaand 5-mm intervals through the remainder of the brai n. The [facility] entstudy is compared to the examination of [...] for confirmation. Reported By: TRUE NAGEL M.D. 67-Sap-404329:23 SPINE,CERVICAL WITHOUT CONTRAS Radiology Report See Note (Normal) Comments: Exam Number: [id number] CLINICAL:44 year old female with cervical radiculopathy. [...] tumor involvement. Reported By: SHARYN JASMINE M.D. 99-Oos-716442:50 Blood Glucose , Office (71766) Blood Glucose , Office 105 (Normal) 27-Vwz-179674:50 HgA1C , Office (11466) HgA1C , Office 6.1 % (Normal) Range: 4.6 - 7.1 42-Bwf-901111:24 URINE GENESIS CULTURE-NITA COL Comments: PATIENT NOT FASTINGPERFORMED BY: REINALDO [facility] Y[address] [place] [id number] Information: SRC:UR S68214 COUNT (57900) Antimicrobial MIHEAD (Normal) Comments: S = Susceptible; [...] mL (Normal) Urine Final report (Normal) Culture,Comprehensive 06-Ffo-134828:41 Urinalysis, Office (64687) UA - LEUKOCYTE ESTERASE Large (Normal) UA - NITRITE Negative (Normal) URINE UROBILINGN NITA TIMED Normal mg/dL (Normal) UA - PROTEIN 100 mg/dL (Normal) UA - PH 5.0 (Normal) UA - BLOOD Hemolyzed Large (Normal) UA - SPECIFIC GRAVITY 1.025 (Normal) UA - KETONES Negative mg/dL (Normal) UA - BILIRUBIN Negative (Normal) UA - GLUCOSE Negative (Normal) 5-Epn-685178:19 BLOOD GAS, O2 SAT ONLY - INITL Radiology Report See Note (Normal) Comments: Exam Number: [id number] Procedure completed. Please see MEDICAL RECORDS reports in PCI - OP - OP NOTE LET - LETTER. Reported By: BOONE CH M.D. :19 BLOOD GAS, O2 SAT ONLY - SUBSQ Radiology Report See Note (Normal) Comments: Exam Number: [id number] Procedure completed. Please see MEDICAL RECORDS reports in PCI - OP - OP NOTE LET - LETTER. Reported By: BOONE CH M.D. :19 BLOOD GAS, O2 SAT ONLY - SUBSQ Radiology Report See Note (Normal) Comments: Exam Number: [id number] Procedure completed. Please see MEDICAL RECORDS reports in PCI - OP - OP NOTE LET - LETTER. Reported By: BOONE CH M.D. :45 RHC/LHC/CORS/LV Radiology Report See Note (Normal) Comments: Exam Number: [id number] Procedure completed. Please see MEDICAL RECORDS reports [...] 11.6-14.6 WBC 4.4 K/mm3 (Normal) Range: 4.4-11.0 09-Lls-758526:03 CULTURE, URINE URINE CULTURE See Note {CFU/mL} (Normal) Comments: COLONY COUNT 11,000-25,000 ORGANISM 1: MIXED GRAM POSITIVE ORGANISMS :58 Urinalysis, Office (08926) UA - BILIRUBIN Negative (Normal) UA - BLOOD Negative (Normal) UA - GLUCOSE Negative (Normal) UA - KETONES Negative mg/dL (Normal) UA - LEUKOCYTE ESTERASE Small (Normal) Comments: aw UA - NITRITE Negative (Normal) UA - PH 6.0 (Normal) UA - PROTEIN Negative mg/dL (Normal) UA - SPECIFIC GRAVITY 1.010 (Normal) URINE UROBILINGN NITA TIMED Normal mg/dL (Normal) :53 HgA1C , Office (04313) HgA1C , Office 5.7 % (Normal) Range: 4.6 - 7.1 :53 Blood Glucose , Office (65183) Blood Glucose , Office 133 (Normal) :24 [...] (Normal) Range: 6.4-8.2 :53 HgA1C , Office (10740) HgA1C , Office 10.0 % (Abnormal) Range: 4.6 - 7.1 :53 Blood Glucose , Office (57964) Blood Glucose , Office 410 (Normal) :46 [...] mg/dL VLDL 49 mg/dL (Abnormal) Range: 5-40 2-Fua-598656:46 MICROALB:CRE UR MALB:CREAT 33.3 {mg/g_CRE} (Abnormal) MICROALBUMIN,UR 62.2 mg/L (Normal) UR CREAT 186.7 mg/dL (Normal) 65-Xdh-603997:11 LIPID Comments: PATIENT NOT FASTING/DEMANDED TO BE [...] mg/dL VLDL 31 mg/dL (Normal) Range: 5-40 58-Dmj-798135:11 LIVER Comments: PATIENT NOT FASTING/DEMANDED TO BE DRAWN ALT 43 U/L (Normal) Range: 30-65 D BILI 0.07 mg/dL (Normal) Range: 0.00-0.30 T BILI 0.35 mg/dL (Normal) Range: 0.00-1.00 ALB 3.4 g/dL (Normal) Range: 3.4-5.0 ALK P 210 U/L (Abnormal) Range: 50-136 AST 27 U/L (Normal) Range: 15-37 T PROT 6.4 g/dL (Normal) Range: 6.4-8.2 83-Ots-512855:23 Urinalysis, Office (24814) Comments: done BC UA - BILIRUBIN Negative (Normal) UA - BLOOD Hemolyzed Large (Normal) UA - GLUCOSE Large (Normal) Comments: > 1000mg/dL UA - KETONES Negative mg/dL (Normal) UA - LEUKOCYTE ESTERASE Moderate (Normal) UA - NITRITE Negative (Normal) UA - PH 6.0 (Normal) UA - PROTEIN 30 mg/dL (Normal) UA - SPECIFIC GRAVITY 1.010 (Normal) URINE UROBILINGN NITA TIMED Normal mg/dL (Normal) 28-Epe-588997:44 MYOCARD PERF SPECT REST/STRESS Radiology Report See Note (Normal) Comments: Exam Number: [id number] MYOCARDIAL PERFUSION SCAN TECHNIQUEThe patient was injected [...] of 37%. Reported By: NOE MORRIS M.D. 03-Skh-25443:39 SPINE, LUMBAR W/W/O CONTRAST Radiology Report See Note (Normal) Comments: Exam Number: [id number] MAGNETIC RESONANCE IMAGING OF THE LUMBAR SPINE [...] other abnormality. Reported By: SUSAN GOMEZ M.D. 74-Vxd-761153:04 CULTURE, URINE URINE CULTURE See Note {CFU/mL} (Normal) Comments: COLONY COUNT 25,000-50,000 ORGANISM 1: MIXED GRAM POSITIVE ORGANISMS 23-Bdh-836405:15 Urinalysis, Office (94538) UA - LEUKOCYTE ESTERASE Small (Normal) Comments: aw UA - NITRITE Negative (Normal) UA - PH 5.0 (Normal) UA - PROTEIN Negative mg/dL (Normal) URINE UROBILINGN NITA TIMED Normal mg/dL (Normal) UA - BILIRUBIN Negative (Normal) UA - BLOOD Negative (Normal) UA - GLUCOSE Negative (Normal) UA - KETONES Negative mg/dL (Normal) UA - SPECIFIC GRAVITY 1.025 (Normal) 83-Vkj-484993:09 Blood Glucose , Office (14408) Blood Glucose , Office 231 (Normal) 81-Thr-955440:09 HgA1C , Office (67373) HgA1C , Office 7.1 % (Normal) Range: 4.6 - 7.1 68-Cru-013785:42 CBCD,SMEAR DIFF CELLS COUNTED 100 (Normal) HCT [...] 47-70 WBC 4.3 K/mm3 (Abnormal) Range: 4.4-11.0 :42 COMP METABOLIC A/G 1.2 {RATIO} (Normal) Range: [...] for patient's is the eGFRmultiplied by 1.212. [facility] Laboratory uses the abbreviated Modification of [...] Disease W/O Kidney Disease>/= 90 Stage One Pwrozw64 - 89 Stage Two Suspect Decreased GFR30 [...] T PROT 6.5 g/dL (Normal) Range: 6.4-8.2 70-Ikf-220079:42 LIPID CHOL 182 mg/dL (Normal) Comments: <200 [...] mg/dL VLDL 36 mg/dL (Normal) Range: 5-40 55-Wrt-418389:42 MICROALB:CRE UR MALB:CREAT 35.4 {mg/g_CRE} (Abnormal) MICROALBUMIN,UR 54.7 mg/L (Normal) UR CREAT 154.6 mg/dL (Normal) 40-Krm-681681:42 TSH 2.57 {uIU/mL} (Normal) Range: 0.34-4.82 95-Har-525942:40 CULTURE, URINE URINE CULTURE See Note {CFU/mL} (Normal) Comments: COLONY COUNT 1000-10,000 ORGANISM 1: MIXED GRAM POS & NEG ORGANISMS 05-Wxl-874191:36 Urinalysis, Office (73816) UA - BILIRUBIN Negative (Normal) UA - BLOOD Non Hemolyzed Trace (Normal) UA - KETONES Negative mg/dL (Normal) UA - LEUKOCYTE ESTERASE Moderate (Normal) UA - NITRITE Negative (Normal) UA - PH 5.0 (Normal) UA - PROTEIN Negative mg/dL (Normal) UA - SPECIFIC GRAVITY 1.015 (Normal) URINE UROBILINGN NITA TIMED Normal mg/dL (Normal) UA - GLUCOSE Negative (Normal) 23-Naw-139228:20 CULTURE, URINE URINE CULTURE See Note {CFU/mL} (Normal) Comments: COLONY COUNT 25,000-50,000 ORGANISM 1: MIXED GRAM POS & NEG ORGANISMS 76-Vfo-458749:12 Urinalysis, Office (29441) UA - BILIRUBIN Negative (Normal) UA - BLOOD Negative (Normal) UA - GLUCOSE Negative (Normal) UA - KETONES Negative mg/dL (Normal) UA - LEUKOCYTE ESTERASE Small (Normal) UA - NITRITE Negative (Normal) UA - PH 6.0 (Normal) UA - PROTEIN Negative mg/dL (Normal) UA - SPECIFIC GRAVITY 1.005 (Normal) URINE UROBILINGN NITA TIMED Normal mg/dL (Normal) :08 CBCD,SMEAR DIFF CELLS COUNTED 100 (Normal) EOS [...] Range: 0.34-4.82 :28 Blood Glucose , Office (28259) Blood Glucose , Office 124 (Normal) :28 HgA1C , Office (77816) HgA1C , Office 6.1 % (Normal) Range: 4.6 - 7.1 21-Luu-590520:38 CERULOPLAS 1560 21.3 mg/dL (Normal) Range: 17.9-53.3 Comments: Performed At: [facility] [place], [place] [id number] 45-Bps-296724:38 FERRITIN 189 ng/mL (Normal) Range: 8-252 45-Hct-710405:38 HEP-ABC 107143 HB CORE [id number] SeeNote (Normal) Comments: Result: Negative HB SURF [...] T PROT 6.5 g/dL (Normal) Range: 6.4-8.2 1-Ujg-911952:02 THYROID (HP) Radiology Report See Note (Normal) Comments: Exam Number: [id number] THYROID ULTRASOUND HISTORYThyromegaly. High-resolution, real-time linear images [...] is recommended. Reported By: TRUE NAGEL M.D. 90-Xcn-279863:05 Blood Glucose , Office (25566) Blood Glucose , Office 135 (Normal) 32-Yzw-162153:05 HgA1C , Office (15557) HgA1C , Office 5.6 % (Normal) Range: 4.6 - 7.1 25-Sog-82628:02 CBCD,SMEAR DIFF ANISO 1+ (Normal) CELLS COUNTED [...] Report See Note (Normal) Comments: Exam Number: [id number] CT BRAIN WITHOUT AND WITH INTRAVENOUS CONTRAST [...] clinically warranted. Reported By: AIDAN MASON M.D. 92-Rdu-596260:30 CBCD Comments: CALL [phone] TO [phone] BASO% 0.8 % (Normal) Range: 0-1 EO% [...] 1+ANISOCYTOSIS WBC 3.8 K/mm3 (Abnormal) Range: 4.4-11.0 63-Iyq-987700:30 COMP METABOLIC Comments: CALL [phone] TO [phone] A/G 1.5 {RATIO} (Normal) Range: 0.9-2.4 ALB [...] :30 LDH 206 U/L (Abnormal) Comments: CALL [phone] TO [phone] Range: 100-190 :30 URIC 5.7 mg/dL (Normal) Comments: CALL [phone] TO [phone] Range: 2.6-6.0 :30 CULT, DP WOUND Comments: [...] mg/dL (Abnormal) Range: 40-230 Comments: Performed At: [address] [id number] :41 LDH 211 U/L (Abnormal) Range: 100-190 [...] :20 BMP Comments: COMMENTS: BED 13 DR IRVINPrecautionsharath*: NOT APPLICABLE BUN 18 mg/dL (Normal) Range: [...] :20 CBCD Comments: COMMENTS: BED [address] DR IRVINPrecaprisca*: NOT APPLICABLE BAND 9 % (Abnormal) Range: [...] 47-70 WBC 23.9 K/mm3 (Abnormal) Range: 4.4-11.0 74-Urp-53747:30 AFB C&S [id number] Comments: Precautions*: CHEMO PRECAUTIONSSPECIMEN DESCRIPTION: #2 SAME [...] 8482 (Normal) Comments: ` TESTING PERFORMED AT [facility]. ORIGINAL REPORT ON FILE IN LAB CONTAINS ADDITIONAL TEST SITE INFORMATION. 0069 CULTURE, FUNGUS NO YEAST OR MOLD ISOLATED AFTER 4 WEEKS. :30 13-D CYTOLOGY, SeeNote Comments: Result: SEE PATHOLOGY REPORT Specimen submitted to Anatomical Pathology Department for testing. ec-2 BF/CSF (Normal) 0069 :30 46-Fzw-24160:30 FLUID P-FLU (Normal) Comments: OPERATION Not noted HISTORY Lymphoma PRE-OPERATIVE DIAGNOSIS Pain injection lower back TISSUE SUBMITTED CSF for cytology DIAGNOSIS (CYTOLOGY) Cerebrospinal fluid (cytospins and cell block): Negat scott for malignant cells. SJ:ch 09/08/06 CYTOLOGY STUDY The specimen is bloody. [...] 47-70 WBC 3.9 K/mm3 (Abnormal) Range: 4.4-11.0 56-Zya-18617:25 COMP METABOLIC A/G 1.4 {RATIO} (Normal) Range: [...] DRAWN 07/22/06-TEST MISSED Range: 100-190 :51 SPE 750249 A/G RATIO 1.3 (Normal) Range: 0.7-2.0 ALBUMIN [...] Evidenceof monoclonal protein is not apparent.Performed At: [facility] [place], [place] [id number] M-SPIKE SeeNote (Normal) Comments: Result: Not Observed NOTE: Comment (Normal) Comments: Protein electrophoresis scan will follow via mail orcourier. PROTEIN,TOTAL 6.5 g/dL (Normal) Range: 6.0-8.5 :49 Blood Glucose , Office (46156) Blood Glucose , Office 84 (Normal) 39-Mdo-179164:49 HgA1C , Office (82801) HgA1C , Office 6.6 % (Normal) Range: 4.6 - 7.1 Plan of Care Name Dates Details Instructions SOB (shortness of breath) : Eprescribed prescriptions (G8553) Indication: SOB (shortness of breath) B12 deficiency : Eprescribed prescriptions (G8553) Indication: [...] after tests Indication: Paroxysmal tachycardia Planned Observations CPK MB FRACTION (75507)Indication: SOB (shortness of breath) On: :21 Request Comments: stat ASSAY, TROPONIN, QUANTITATIVE (aka Troponin I) (59019)Indication: SOB (shortness of breath) On: :21 Request Comments: stat CBC W/AUTO DIFF WBC (96935)Indication: SOB (shortness of breath) On: :08 Request Comments: stat METABOLIC PANEL, COMPREHENSIVE (79264)Indication: SOB (shortness of breath) On: :08 Request Comments: stat D-Dimer (79159)Indication: SOB (shortness of breath) On: :08 Request Comments: stat BNTP (43031)Indication: SOB (shortness of breath) On: :08 Request Comments: stat CBC with auto diff (44224)Indication: Diabetes mellitus type II, controlled On: :03 Request LIPID PANEL (16412)Indication: Diabetes mellitus type II, controlled On: : Request METABOLIC PANEL, COMPREHENSIVE (69906)Indication: Diabetes mellitus type II, controlled On: :03 Request HGB A1C (69446)Indication: Diabetes mellitus type II, controlled On: : Request TSH (THYROID STIMULATING HORMONE) (41122)Indication: Acquired hypothyroidism On: : Request Metabolic Panel, Basic (38131)Indication: Hyponatremia On: :00 Request TSH (95423)Indication: Diabetes mellitus type II, controlled On: :48 Request Vitamin B-12 (cyanocobalamin) (88368)Indication: B12 deficiency On: :45 Request CBC WITH MANUAL DIFF (45995)Indication: B12 deficiency On: :45 Request T3, FREE (TRIDOTHYRONINE) (16050)Indication: Thyroid nodule On: :48 Request Comments: add to labs already drawn T4, FREE (THYROXINE) (13226)Indication: Thyroid nodule On: :47 Request Comments: add to labs already drawn Digoxin (41006)Indication: Cardiomyopathy On: :44 Request LIPID PANEL (15472)Indication: Mixed hyperlipidemia On: :43 Request TSH (48890)Indication: Acquired hypothyroidism On: :43 Request Vitamin D Hydroxy (83478)Indication: Vitamin D deficiency On: :43 Request FRVZN-LXSPWSGZLKT-HMMNC (61980)Indication: Fatty liver On: :42 Request VITAMIN B-12 (CYANOCOBALAMIN) (52161)Indication: Fatigue On: :42 Request URINALYSIS, W/ MICRO (49880)Indication: Diabetes mellitus type II, controlled On: 43-Vnh-804175:30 Request MICROALBUMIN: CREATININE RATIO (63893) AND (41884)Indication: Diabetes mellitus type II, controlled On: 84-Ifr-796718:29 Request CBC with auto diff (02369)Indication: Diabetes mellitus type II, controlled On: 63-Drd-247717:29 Request METABOLIC PANEL, COMPREHENSIVE (90984)Indication: Diabetes mellitus type II, controlled On: 51-Bmq-596575:29 Request HGB A1C (24535)Indication: Diabetes mellitus type II, controlled On: 06-Spt-131691:29 Request HEPATIC FUNCTION PANEL (85311)Indication: Elevated liver enzymes On: 3-Dal-449761:38 Request Comments: do in hospital tuesday when get US Metabolic Panel, Comprehensive (03127)Indication: Epigastric pain On: 89-Mro-095388:54 Request Sed Rate Erythrocyte (27492)Indication: Epigastric pain On: :54 Request CBC, Platelets & Auto Diff (70346)Indication: Epigastric pain On: :54 Request OVA & PARASITE DIR SMEAR (37948)Indication: Diarrhea On: 69-Tvn-708903:53 Request OCCULT BLOOD FECES SCREEN (06466)Indication: Diarrhea On: 26-Hvu-625109:53 Request LEUKOCYTE COUNT, FECAL (22967)Indication: Diarrhea On: 66-Ycj-740307:53 Request C-DIFFICILE, STOOL (86621)Indication: Diarrhea On: 45-Wjg-932268:53 Request GENESIS CULTURE-STOOL (46821)Indication: Diarrhea On: 31-Qyg-322507:53 Request Magnesium (30884)Indication: Fatigue On: 11-Nvo-750152:42 Request Vitamin B-12 (cyanocobalamin) (52834)Indication: Fatigue On: 64-Vvr-989667:41 Request MICROALBUMIN: CREATININE RATIO (57249) AND (73524)Indication: Diabetes mellitus type II, controlled On: 82-Bar-756848:40 Request LIPID PANEL (32271)Indication: Mixed hyperlipidemia On: 72-Fwv-773656:39 Request CBC W/AUTO DIFF WBC (94098)Indication: Fatty liver On: 56-Kxs-038750:30 Request METABOLIC PANEL, COMPREHENSIVE (71853)Indication: Fatty liver On: 60-Ezi-109757:30 Request Vitamin D Hydroxy (84062)Indication: Vitamin D deficiency On: 79-Nqp-045784:30 Request TSH (74067)Indication: Acquired hypothyroidism On: 70-Mbp-979267:30 Request Digoxin (94206)Indication: Cardiomyopathy On: 44-Sso-969104:29 Request LIPASE (33475)Indication: Epigastric pain On: :28 Request AMYLASE (91266)Indication: Epigastric pain On: 07-Pii-099945:28 Request URINE GENESIS CULTURE-IDENTIFICATN (84359)Indication: Leukocytes in urine On: 79-Hhp-271786:38 Request MICROALBUMIN: CREATININE RATIO (93209) AND (51193)Indication: Essential hypertension with goal blood pressure less than 130/80 On: :58 Request CBC W/AUTO DIFF WBC (33618)Indication: Essential hypertension with goal blood pressure less than 130/80 On: :58 Request METABOLIC PANEL, COMPREHENSIVE (97394)Indication: Essential hypertension with goal blood pressure less than 130/80 On: :58 Request WPWWV-EHBGVWCCTMN-BEFRE (56915)Indication: Abnormal tumor markers On: :57 Request Vitamin D Hydroxy (40291)Indication: Vitamin D deficiency On: :09 Request LIPOPROTEIN, BLD, BY NMR ([id number])Indication: Mixed hyperlipidemia On: :09 Request CBC W/AUTO DIFF WBC ([id number])Indication: Diabetes mellitus type II, controlled On: :09 Request METABOLIC PANEL, COMPREHENSIVE ([id number])Indication: Diabetes mellitus type II, controlled On: :09 Request Potassium Serum ([id number])Indication: Hypopotassemia On: [id number] Request [id number] ([id number])Indication: Fatty liver On: :57 Request MICROALBUMIN: CREATININE RATIO ([id number]) AND ([id number])Indication: Essential hypertension with goal blood pressure less than 130/80 On: :45 Request CBC W/AUTO DIFF WBC ([id number])Indication: Essential hypertension with goal blood pressure less than 130/80 On: :45 Request METABOLIC PANEL, COMPREHENSIVE ([id number])Indication: Essential hypertension with goal blood pressure less than 130/80 On: :45 Request Vitamin D Hydroxy ([id number])Indication: Vitamin D deficiency On: :45 Request TSH ([id number])Indication: Acquired hypothyroidism On: 45 Request LIPID PANEL ([id number])Indication: Mixed hyperlipidemia On: :45 Request CBC W/AUTO DIFF WBC ([id number])Indication: Diabetes mellitus type II, controlled On: :28 Request [id number] ([id number])Indication: Fatty liver On: : Request METABOLIC PANEL, COMPREHENSIVE ([id number])Indication: Mixed hyperlipidemia On: : Request LIPOPROTEIN, BLD, BY NMR ([id number])Indication: Mixed hyperlipidemia On: : Request Metabolic Panel, Basic ([id number])Indication: Hypopotassemia On: :55 Request Comments: 10 days CBC (AUTO) ([id number])Indication: Uncontrolled type II diabetes mellitus On: :03 Request Vitamin D Hydroxy (10732)Indication: Vitamin D deficiency On: :03 Request MICROALBUMIN: CREATININE RATIO ([id number]) AND ([id number])Indication: Uncontrolled type II diabetes mellitus On: :02 Request METABOLIC PANEL, COMPREHENSIVE ([id number])Indication: Essential hypertension with goal blood pressure less than 130/80 On: 47-Kdp-067694:02 Request [id number] ([id number])Indication: Fatty liver On: : Request LIPID PANEL (36270)Indication: Mixed hyperlipidemia On: : Request TSH ([id number])Indication: Thyroid nodule On: : Request CBC W/AUTO DIFF WBC (07890)Indication: Uncontrolled type II diabetes mellitus On: :47 Request METABOLIC PANEL, COMPREHENSIVE ([id number])Indication: Uncontrolled type II diabetes mellitus On: :47 Request LIPID PANEL ([id number])Indication: Mixed hyperlipidemia On: :47 Request Vitamin D Hydroxy (19692)Indication: Vitamin D deficiency On: :47 Request [id number] ([id number])Indication: Fatty liver On: :27 Request CBC W/AUTO DIFF WBC ([id number])Indication: Uncontrolled type II diabetes mellitus On: :26 Request LIPID PANEL ([id number])Indication: Mixed hyperlipidemia On: : Request MICROALBUMIN: CREATININE RATIO (29581) AND ([id number])Indication: Uncontrolled type II diabetes mellitus On: : Request TSH ([id number])Indication: Acquired hypothyroidism On: : Request METABOLIC PANEL, COMPREHENSIVE (67344)Indication: Essential hypertension with goal blood pressure less than 130/80 On: : Request Vitamin D Hydroxy (18343)Indication: Vitamin D deficiency On: Request CALCIFEDIOL (41827)Indication: Vitamin D deficiency On: 75-Kyw-349733:44 Request Comments: to be done Jun 2015 after done with ergocalciferol URINE GENESIS CULTURE (NITA COL COUNT) ([id number])Indication: UTI (lower urinary tract infection) On: 0-Nyn-222470:22 Request LIPID PANEL ([id number])Indication: Mixed hyperlipidemia On: 0-Mzh-319200:15 Request CBC W/AUTO DIFF WBC ([id number])Indication: Uncontrolled type II diabetes mellitus On: 6-Mzz-804085:14 Request METABOLIC PANEL, COMPREHENSIVE (73441)Indication: Uncontrolled type II diabetes mellitus On: 0-Rjb-038386:14 Request TSH ([id number])Indication: Acquired hypothyroidism On: 8-Hds-665535:14 Request [id number] ([id number])Indication: Fatty liver On: 3-Fqc-459286:14 Request CBC, Platelets & Auto Diff ([id number])Indication: HX, PERSONAL, MALIGNANCY, LYMPHATIC NEC On: 71-Idi-50873:07 Request CBC WITH MANUAL DIFF ([id number])Indication: Abnormal glucose tolerance test On: :33 Request MICROALBUMIN: CREATININE RATIO ([id number]) AND ([id number])Indication: Abnormal glucose tolerance test On: :33 Request LIPID PANEL ([id number])Indication: Mixed hyperlipidemia On: :31 Request METABOLIC PANEL, COMPREHENSIVE ([id number])Indication: Abnormal glucose tolerance test On: :31 Request URINE GENESIS CULTURE-NITA COL COUNT ([id number])Indication: Dysuria On: 81-Riz-035847:03 Request RETICULOCYTE COUNT (77561)Indication: Anemia On: :37 Request Iron ([id number])Indication: Anemia On: :37 Request Ferritin ([id number])Indication: Anemia On: :37 Request CBC (Auto) (65392)Indication: Anemia On: :37 Request CBC, Platelets & Auto Diff ([id number])Indication: Fever On: :03 Request Metabolic Panel, Comprehensive (85007)Indication: Fever On: :03 Request HgA1C , Office ([id number])Indication: Abnormal glucose tolerance test On: :55 Request CBC WITH MANUAL DIFF ([id number])Indication: Abnormal glucose tolerance test On: :53 Request METABOLIC PANEL, COMPREHENSIVE (38614)Indication: Abnormal glucose tolerance test On: :53 Request LIPID PANEL ([id number])Indication: Mixed hyperlipidemia On: 25-Ziz-364948:53 Request [id number] ([id number])Indication: Fatty liver On: 99-Rfp-429110:53 Request PTT (Activated Partial Thromboplastin Time) ([id number])Indication: Fatty liver On: :53 Request PT (Prothrobim Time) ([id number])Indication: Fatty liver On: 44-Phf-403508:53 Request MICROALBUMIN: CREATININE RATIO ([id number]) AND ([id number])Indication: Abnormal glucose tolerance test On: 02-Fmj-297083:49 Request Anti-TPO Antibody ([id number])Indication: Acquired hypothyroidism On: 49-Ebo-969881:14 Request Comments: 1 month TSH ([id number])Indication: Acquired hypothyroidism On: 43-Aal-799236:13 Request Comments: 1 month T4, FREE (THYROXINE) ([id number])Indication: Acquired hypothyroidism On: :13 Request Comments: 1 month T3, FREE (TRIDOTHYRONINE) ([id number])Indication: Acquired hypothyroidism On: 46-Svy-550571:13 Request Comments: 1 month CBC WITH MANUAL DIFF ([id number])Indication: Abnormal glucose tolerance test On: :38 Request METABOLIC PANEL, COMPREHENSIVE ([id number])Indication: Abnormal glucose tolerance test On: :38 Request LIPID PANEL ([id number])Indication: Mixed hyperlipidemia On: :38 Request MICROALBUMIN: CREATININE RATIO ([id number]) AND ([id number])Indication: Abnormal glucose tolerance test On: 33-Xvj-391944:56 Request CBC WITH MANUAL DIFF ([id number])Indication: Elevated LFTs On: :56 Request METABOLIC PANEL, COMPREHENSIVE ([id number])Indication: Elevated LFTs On: 69-Dms-542389:56 Request LIPID PANEL ([id number])Indication: Mixed hyperlipidemia On: :56 Request TSH ([id number])Indication: Acquired hypothyroidism On: :56 Request CBC WITH MANUAL DIFF ([id number])Indication: Essential hypertension with goal blood pressure less than 130/80 On: :34 Request TSH ([id number])Indication: Acquired hypothyroidism On: :34 Request METABOLIC PANEL, COMPREHENSIVE ([id number])Indication: Fatty liver On: :33 Request LIPID PANEL ([id number])Indication: Mixed hyperlipidemia On: :33 Request MICROALBUMIN: CREATININE RATIO ([id number]) AND ([id number])Indication: Uncontrolled type II diabetes mellitus On: :46 Request TSH ([id number])Indication: Acquired hypothyroidism On: :46 Request LIPID PANEL ([id number])Indication: Mixed hyperlipidemia On: :45 Request METABOLIC PANEL, COMPREHENSIVE ([id number])Indication: Elevated LFTs On: :45 Request HgA1C , Office ([id number])Indication: Uncontrolled type II diabetes mellitus On: :28 Request URINE GENESIS CULTURE-NITA COL COUNT ([id number])Indication: Cystitis, acute On: :43 Request URINE GENESIS CULTURE-IDENTIFICATN ([id number])Indication: Dysuria On: :10 Request CBC WITH MANUAL DIFF ([id number])Indication: Headache On: :56 Request METABOLIC PANEL, COMPREHENSIVE ([id number])Indication: Headache On: :56 Request LIPID PANEL ([id number])Indication: Mixed hyperlipidemia On: 81-Ipt-285229:56 Request TSH ([id number])Indication: Acquired hypothyroidism On: :56 Request METABOLIC PANEL, COMPREHENSIVE ([id number])Indication: Uncontrolled type II diabetes mellitus On: :28 Request HEPATIC FUNCTION PANEL ([id number])Indication: Mixed hyperlipidemia On: :28 Request LIPID PANEL ([id number])Indication: Mixed hyperlipidemia On: :28 Request LIPID PANEL ([id number])Indication: Mixed hyperlipidemia On: :39 Request MICROALBUMIN: CREATININE RATIO ([id number]) AND ([id number])Indication: Uncontrolled type II diabetes mellitus On: :39 Request CBC WITH MANUAL DIFF ([id number])Indication: Essential hypertension with goal blood pressure less than 130/80 On: :39 Request METABOLIC PANEL, COMPREHENSIVE ([id number])Indication: Elevated LFTs On: :39 Request TSH ([id number])Indication: Acquired hypothyroidism On: :36 Request TSH ([id number])Indication: Thyroid nodule On: 28-Wjb-801344:20 Request METABOLIC PANEL, COMPREHENSIVE ([id number])Indication: Elevated LFTs On: :19 Request LIPID PANEL ([id number])Indication: Mixed hyperlipidemia On: 95-Qkv-953666:19 Request C-REACTIVE PROTEIN ([id number])Indication: Abnormal findings on diagnostic imaging of other specified body structures On: 67-Ndv-699014: Request SED RATE ERYTHROCYTE ([id number])Indication: Abnormal findings on diagnostic imaging of other specified body structures On: 19-Rrc-383061: Request LDH (LD) (LACTATE DEHYDROGENASE) ([id number])Indication: Abnormal findings on diagnostic imaging of other specified body structures On: 28-Dqe-920910: Request Urine Protein Electrophoresis (UPEP) ([id number])Indication: Abnormal findings on diagnostic imaging of other specified body structures On: 61-Njb-050896: Request Serum Protein Electrophoresis (SPEP) ([id number])Indication: Abnormal findings on diagnostic imaging of other specified body structures On: 26-Jmi-253988: Request METABOLIC PANEL, COMPREHENSIVE ([id number])Indication: Diabetes mellitus type II, controlled On: :19 Request LIPID PANEL ([id number])Indication: Mixed hyperlipidemia On: :19 Request URINE GENESIS CULTURE-NITA COL COUNT ([id number])Indication: Dysuria On: 11-Yew-558085:58 Request HEPATIC FUNCTION PANEL ([id number])Indication: Elevated LFTs On: 98-Gyc-231752:18 Request LIPID PANEL ([id number])Indication: Mixed hyperlipidemia On: 02-Tcy-225792:17 Request MICROALBUMIN: CREATININE RATIO ([id number]) AND ([id number])Indication: Uncontrolled type II diabetes mellitus On: 0-Urd-320096:47 Request CBC WITH MANUAL DIFF ([id number])Indication: Uncontrolled type II diabetes mellitus On: :47 Request METABOLIC PANEL, COMPREHENSIVE ([id number])Indication: Uncontrolled type II diabetes mellitus On: 1-Hlb-542766:47 Request HEPATIC FUNCTION PANEL ([id number])Indication: Elevated LFTs On: 9-Ppj-729209:45 Request LIPID PANEL ([id number])Indication: Mixed hyperlipidemia On: 0-Vty-003893:44 Request HEPATIC FUNCTION PANEL ([id number])Indication: Fatty liver On: 5-Wua-671559:30 Request LIPID PANEL ([id number])Indication: Mixed hyperlipidemia On: 0-Mdy-166825:30 Request URINE GENESIS CULTURE (NITA COL COUNT) ([id number])Indication: Low back pain potentially associated with radiculopathy On: 61-Xfa-416895:03 Request MICROALBUMIN: CREATININE RATIO ([id number]) AND ([id number])Indication: Dysuria On: 14-Fmj-904241:05 Request LIPID PANEL ([id number])Indication: Dysuria On: 26-Xed-663501:05 Request TSH ([id number])Indication: Dysuria On: 85-Fnm-839513:05 Request METABOLIC PANEL, COMPREHENSIVE ([id number])Indication: Dysuria On: 12-Mlt-763336:04 Request CBC WITH MANUAL DIFF ([id number])Indication: Dysuria On: 38-Keu-045983:04 Request URINE GENESIS CULTURE-NITA COL COUNT ([id number])Indication: Dysuria On: 00-Eeo-488043:45 Request URINE GENESIS CULTURE (NITA COL COUNT) ([id number])Indication: Dysuria On: 69-Wbe-289535:17 Request METABOLIC PANEL, COMPREHENSIVE ([id number])Indication: Fatty liver On: 38-Adt-02432:58 Request Magnesium ([id number])Indication: Palpitations On: 63-Ijm-87091:51 Request TSH ([id number])Indication: Palpitations On: 40-Iqh-07139:51 Request METABOLIC PANEL, COMPREHENSIVE ([id number])Indication: Palpitations On: 99-Ake-92538:51 Request CBC WITH MANUAL DIFF ([id number])Indication: Palpitations On: 43-Dex-24638:51 Request GGT (Gamma Glutamyl Transferase) ([id number])Indication: Elevated LFTs On: 98-Zcf-549279:16 Request HEPATIC FUNCTION PANEL ([id number])Indication: Elevated LFTs On: 06-Zmu-468218:16 Request VITAMIN B-12 (CYANOCOBALAMIN) ([id number])Indication: Fatigue On: :23 Request MICROALBUMIN URINE QUANT ([id number])Indication: Diabetes mellitus type II, controlled On: 61-Wzw-41014:22 Request TSH ([id number])Indication: Fatigue On: 19-Uwv-51182:22 Request CBC WITH MANUAL DIFF ([id number])Indication: Diabetes mellitus type II, controlled On: 38-Zrc-66123:22 Request METABOLIC PANEL, COMPREHENSIVE ([id number])Indication: Diabetes mellitus type II, controlled On: 25-Izc-83145:22 Request LIPID PANEL ([id number])Indication: Mixed hyperlipidemia On: :22 Request HEPATIC FUNCTION PANEL ([id number])Indication: Mixed hyperlipidemia On: 07-Wwr-207362:48 Request LIPID PANEL ([id number])Indication: Mixed hyperlipidemia On: 31-Vrt-839959:48 Request Comments: in 3 mos Planned Encounters Medical; [facility] 1 Month FU - On: 12-Sep-2018 8:00 [facility] Fast DO, Sangeetha A Fast DO, Sangeetha A Planned Procedures Overnight Pulse OX ([id number])By: Fast On: 04-Sep-2018 Intent DO, Sangeetha A Fast DO, Sangeetha A Spirometry (46005)By: Fast DO, On: 04-Sep-2018 Intent Sangeetha A Fast DO, Sangeetha A ELECTROCARDIOGRAM, COMPLETE (ECG) On: 04-Sep-2018 Intent ([id number])By: Fast DO, Sangeetha A Fast DO, Comments: ekg- 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 and possible recent anterior wall mi- nonspecific st depression Sangeetha A Flu Vaccine (Quadrivalent) 78260Oj: On: 21-Jul-2018 Intent Fast DO, Sangeetha A Fast DO, Sangeetha A SCREENING DIGITAL TOMOSYNTHESIS OF On: 21-Jul-2018 Intent BREAST ([id number])By: Fast DO, Sangeetha A Fast DO, Sangeetha A B 12 Injection, 1000 mcg (J3420)By: On: 31-May-2018 Intent Fast DO, Sangeetha A Fast DO, Sangeetha A Comments: Lot#[id number] EXP:[id number] given:left deltoid Given By: clarita craig ABN signed CT - Abdomen (IV Contrast Needed)By: On: 31-May-2018 Intent Fast DO, Sangeetha A Fast DO, Sangeetha A Doppler Ultrasound OtherBy: Fast DO, On: 19-May-2018 Intent Sangeetha A Fast DO, Sangeetha A Comments: left arm ULTRASOUND OF LIVER (04552)By: On: 24-Feb-2018 Intent Jennifer Rios MD PFT - CompleteBy: Fast DO, Sangeetha A On: 21-Oct-2017 Intent Fast DO, Sangeetha A Comments: at [facility] SCREENING DIGITAL TOMOSYNTHESIS OF On: 21-Oct-2017 Intent BREAST ([id number])By: Fast DO, Sangeetha A Comments: end oct Fast DO, Sangeetha A EsophagramBy: Fast DO, Sangeetha A Fast On: 21-Oct-2017 Intent DO, Sangeetha A Comments: with 12 mm tablet ELECTROCARDIOGRAM, COMPLETE (ECG) On: 21-Oct-2017 Intent ([id number])By: Fast DO, Sangeetha A Fast DO, Sangeetha A Flu Vaccine (Quadrivalent) 45190Pe: On: 07-Jun-2017 Intent Fast DO, Sangeetha A [...] DO, Sangeetha A DEXA SCAN AXIAL SKELETON ([id number])By: On: 16-Aug-2016 Intent Fast DO, Sangeetha A Fast DO, Sangeetha A MAMMOGRAM, SCREENING, BOTH BREAST On: 16-Aug-2016 Intent (87552)By: Fast DO, Sangeetha A Fast DO, Sangeetha A ELECTROCARDIOGRAM, COMPLETE (ECG) On: 16-Aug-2016 Intent ([id number])By: Fast DO, Sangeetha A Fast DO, Sangeetha A Flu Vaccine (Quadrivalent) 15206Pb: On: 16-Aug-2016 Intent Fast DO, Sangeetha A Fast DO, Sangeetha A Comments: FLUlot: [id number]/09site:Lt deltoidroute:IMdose:.5mlDELOS [facility] ADMINISTRATION OF INFLUENZA VIRUS On: 16-Aug-2016 Intent VACCINE (G0008)By: Fast DO, Sangeetha A Fast DO, Sangeetha A Ultrasound - ThyroidBy: Fast DO, On: 10-Nov-2015 Intent Sangeetha A Fast DO, Sangeetha A Ultrasound - LiverBy: Fast DO, Sangeetha On: 10-Nov-2015 Intent A Fast DO, Sangeetha A Flu Vaccine (Quadrivalent) 89162Hi: On: 08-Aug-2015 Intent Fast DO, Sangeetha A Fast DO, Sangeetha A Comments: Lot #[id number]-L dltd, IMDose prefilled syringegiven by:MLscarlet, LPNVIS and ABN signed MAMMOGRAM, SCREENING, BOTH BREAST On: 08-Aug-2015 Intent (85775)By: Fast DO, Sangeetha A Fast DO, Sangeetha A Ultrasound - ThyroidBy: Fast DO, On: 08-Aug-2015 Intent Sangeetha A Fast DO, Sangeetha A Ultrasound - LiverBy: Fast DO, Sangeetha On: 08-Aug-2015 Intent A Fast DO, Sangeetha A ADMINISTRATION OF PNEUMOCOCCAL On: 01-Nov-2014 Intent VACCINE (G0009)By: Fast DO, Sangeetha A Fast DO, Sangeetha A PNEUM VAC ADLT/IMUMNOSPR, SBC/INTRM On: 01-Nov-2014 Intent (19670)By: Fast DO, Sangeetha A Fast DO, Comments: Lot:[id number]:02/29/16Dose:0.5mgRoute:imSite:mk Garcia By:BATSHEVA Ring A Ultrasound - LiverBy: Fast DO, Sangeetha On: 05-Jul-2014 Intent A Fast DO, Sangeetha A BILATERAL MAMMOGRAMS (62090)By: Tavon On: 05-Jul-2014 Intent DO, Sangeetha A Fast DO, Sangeetha A Ultrasound - ThyroidBy: Tavon DO, On: 05-Jul-2014 Intent Sangeetha A Fast DO, Sangeetha A ADMINISTRATION OF INFLUENZA VIRUS On: 05-Jul-2014 Intent VACCINE (G0008)By: Tavon DO, Sangeetha A Comments: Influenzalot:[id number]:03/25/2015dose:0.5mLRoute: IMlocation:R jewels by:marika Fast DO, Sangeetha A FLU VAC, SPLIT, >3 YEARS, INTRAMUSC On: 05-Jul-2014 Intent (46835)By: Sangeetha Irvin DO Fast DO, Sangeetha A INFUSION, NORMAL SALINE SOLUTION , On: 15-Apr-2014 Intent 250 CC (J7050)By: Angelina Winn CNP Rocephon Injection, 1 Gm (J0696)By: On: 15-Apr-2014 Intent Angelina Winn CNP Comments: Rocephin 1gmLot #[id number]. [id number] in R hand x 1 stick with a 22 gauge butterfly. Patient tolerated well with no c/o voiced. No infiltrate noted. Discontinued following infusion with no ecchymosis noted. JQuestel. Radiology - Cervical SpineBy: Tavon On: 06-Feb-2014 Intent DO, Sangeetha A Fast DO, Sangeetha A Eprescribed prescriptions ([id number])By: On: 06-Feb-2014 Intent Fast DO, Sangeetha A Fast DO, Sangeetha A CT - Brain/Head (IV Contrast On: 08-Jan-2014 Intent Needed)By: Arpan Irvin DOa A Fast DO, Sangeetha A ADMINISTRATION OF INFLUENZA VIRUS On: 27-Jul-2013 Intent VACCINE (G0008)By: Tavon DAVIS, Sangeetha A Fast DO, Sangeetha A FLU VAC, SPLIT, >3 YEARS, INTRAMUSC On: 27-Jul-2013 Intent ([id number])By: Fast DO, Sangeetha A Fast DO, Sangeetha A Eprescribed prescriptions ([id number])By: On: 04-Jun-2013 Intent Delisa Melendez LPN SPECIMEN HANDLING/TRANSPORT On: 04-Jun-2013 Intent ([id number])By: Delisa Melendez LPN INFUSION, NORMAL SALINE SOLUTION , On: 15-Feb-2013 Intent 1000 CC (Special Coverage Comments: 500 cc Instructions Apply. See MCM: 2049) ([id number])By: Jennifer Rios MD HYDRATION IV INFUSION, INIT On: 15-Feb-2013 Intent (05849)By: Jennifer Rios MD Ultrasound - ThyroidBy: Fast DO, On: 19-Jan-2013 Intent Sangeetha A Fast DO, Sangeetha A MAMMOGRAM, SCREENING, BOTH BREASTS On: 19-Jan-2013 Intent (51763)By: Fast DO, Sangeetha A Fast DO, Comments: due in january Sangeetha A Eprescribed prescriptions (G8553)By: On: 19-Jan-2013 Intent Isabella Grigsby Pulse Oximetry (87017)By: Seb, On: 29-Sep-2012 Intent Isabella Comments: 98% [...] MAMMOGRAM, SCREENING, BOTH BREASTS On: 24-Jan-2012 Intent ([id number])By: Fast DO, Sangeetha A Fast DO, Sangeetha A TDAP VACCINE >7 IM (96315)By: Fast On: 04-Oct-2011 Intent DO, Sangeetha A Fast DO, Sangeetha A Comments: Lot:[id number]:08/12/13Amt:prefilledRoute:IMSite:right deltGiven By: NATALEE Spence Aerosol Treatment (70699)By: Blanca On: 26-Aug-2011 Intent Jennifer KING Pulse Oximetry ([id number])By: Blanca On: 26-Aug-2011 Intent Jennifer KING SPECIMEN HANDLING/TRANSPORT On: 23-Jul-2011 Intent (49507)By: Delisa Melendez LPN FLU VAC, SPLIT, >3 YEARS, INTRAMUSC On: 05-Jul-2011 Intent (99776)By: Isabella Grigsby Comments: Lot #[id number]/20/12Site-left deltoidgiven by: Lisa Bello LPN Ultrasound - ThyroidBy: Fast DO, On: 05-Jul-2011 Intent Sangeetha A Fast DO, Sangeetha A MAMMOGRAM, SCREENING, BOTH BREASTS On: 05-Jul-2011 Intent ([id number])By: Fast DO, Sangeetha A Fast DO, Sangeetha A ADMINISTRATION OF INFLUENZA VIRUS On: 05-Jul-2011 Intent VACCINE (G0008)By: Isabella Grigsby Eprescribed prescriptions ([id number])By: On: 04-Jun-2011 Intent [address] CT - Brain/HeadBy: Fast DO, Sangeetha A On: 07-Oct-2010 Intent Fast DO, Sangeetha A Comments: with and without contrast MAMMOGRAM, SCREENING, BOTH BREASTS On: 26-Jun-2010 Intent ([id number])By: Fast DO, Sangeetha A Fast DO, Sangeetha A ADMINISTRATION OF INFLUENZA VIRUS On: 26-Jun-2010 Intent VACCINE (G0008)By: Fast DO, Sangeetha A Fast DO, Sangeetha A FLU VAC, SPLIT, >3 YEARS, INTRAMUSC On: 26-Jun-2010 Intent (47689)By: Fast DO, Sangeetha A Fast DO, Comments: Lot:[id number] 4PExp:12/2010Dose:0.5mlRoute:IMSite:Left DeltoidGiven by: HEIDI Alberto Ultrasound - ThyroidBy: Fast DO, On: 07-Jan-2010 Intent Sangeetha A Fast DO, Sangeetha A CT - Spine/CervicalBy: Fast DO, On: 15-Dec-2009 Intent Sangeetha A Fast DO, Sangeetha A Comments: 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 -- need to rule out Pulse Oximetry (61706)By: Fast DO, On: 09-Jul-2009 Intent Sangeetha A Fast DO, Sangeetha A Spirometry (96279)By: Fast DO, On: 10-Jul-2009 Intent Sangeetha A Fast DO, Sangeetha A Comments: good effort and curve- mild restriciton Radiology - Chest- PA and LatBy: On: 09-Jul-2009 Intent Fast DO, Sangeetha A Fast DO, Sangeetha A Pulse Oximetry (47571)By: Fast DO, On: 10-Jul-2009 Intent Sangeetha A Fast DO, Sangeetha A Comments: 98 FLU VAC, SPLIT, >3 YEARS, INTRAMUSC On: 09-Jul-2009 Intent ([id number])By: Isabella Grigsby Comments: Lot #[id number]/2010Site-right deltoidDose0.5mlgiven by Juventino Nye LPN IMMUNIZ ADMNIN, 1 VAC, SNGL/COMBO On: 09-Jul-2009 Intent (46980)By: Isabella Grigsby EKG (15446)By: Fast DO, Sangeetha A On: 10-Oct-2008 Intent [...] ADMNIN, 1 VAC, SNGL/COMBO On: 10-Jul-2008 Intent (97205)By: Fast DO, Sangeetha A Fast DO, Sangeetha A FLU VAC, SPLIT, >3 YEARS, INTRAMUSC On: 10-Jul-2008 Intent ([id number])By: Fast DO, Sangeetha A Fast DO, Comments: injection given in left deltoid, pt tolerated welllot # [id number] Sangeetha A Holter Monitor 24 hrsBy: Fast DO, On: 10-Jul-2008 Intent Sangeetha A Fast DO, Sangeetha A EKG (29960)By: Marlene Reddy On: 10-Jul-2008 Intent Comments: ekg showed normal sinus rhythym, normal axis, no acute st/t wave changes sinus tach - no acute changes Ultrasound - ThyroidBy: Fast DO, On: 20-Feb-2008 Intent Sangeetha A Fast DO, Snageetha A CT - Brain/Head (IV Contrast On: [...] DO, Sangeetha A Instructions Name Dates Details SOB (shortness of breath) : How to access health information online Indication: SOB (shortness of breath) SOB (shortness of breath) : How to access health information online - Detail Indication: SOB (shortness of breath) SOB (shortness of breath) : Patient Instructions Indication: SOB (shortness of breath) B12 deficiency : How to access health [...] Instructions Indication: Abnormal glucose tolerance test Encounters Review On: 04-Sep-2018 11:34 Encounter Reason: Shortness of Breath - Symptoms include dyspnea, exercise intolerance, fatigue, lightheadedness, palpitations and cough (dry), while symptoms do not include chest pain or chest tightness. Onset was 1 wee k(s) ago (going on for a couple months but started getting really bad in the last week). The symptoms occur constantly. The patient describes this as worsening. Associated symptoms include anxiety (hype rventilating). Note for Shortness of breath: 2 weeks ago went to [facility] and she thought maybe her lung- he ordered cardiorespiratory stress test/ and camera into voice box to see if c ompressing- and ??overnight pulse ox - they are scheduled for oct- so when she called on tuesday to tell them worse they said come see pcp- has to sleep sitting up- that is worse the last week and more d oe- dry cough- no leg swelling but no stomach swelling- had little ham not much for thanksgiving - she did get better last time with diuretic- taking 2 lasix am 1 at [facility]- no chest pain some palps- supposed to see rosetta in [facility] Diagnosis: BMI 31.0-31.9,adult, Nonsmoker, SOB (shortness of breath), Orthopnea [facility] Office Visit On: 21-Jul-2018 9:17 Encounter Reason: Follow up tests - Diagnostic tests include chest X-ray (Dr. Shahrzad Todd with cardiology - was performed because [...] using tylenol and will go back to [place] if need be for shot-sugar fine-n foot [...] off metformin and lisinopril andthen went to [place] couple weeks then had multiple falls sent back to hospital and transferred to [facility] there for few weeks then to [facility] had lots of pt- and doing better [...] fasting blood sugars : (was lower before [place] and 139 last week fasting in the [...] Patient has been compliant with instructions. Current ut End: 01-Mar-2017 9:26 dication use: no side [...] anxiety and depression. Note for Physical exam: [facility] Wellness Physical- she is down 107 [...] from Need for immunizati on against influenza), [facility] WELLNESS, Encounter for screening mammogram for [...] Reason for hospitalization abdominal pain (Went to [facility] on 02/28/15). Hospitalization details include: abnormal [...] previously evaluated by a primary physician (at [facility]- Dr Reyes ). Presentation included lid swelling.Encounter [...] is helping her mood- has followup in [place] may 04 - her weight down 20 [...] sees heart failure doctor next week at [facility] - -- mood ebs and flows- [...] of all the problems -goes back to [facility] on tuesday and psych in 2 weeksEncounter [...] seeing zoraida for back issues- sees rosetta tue- she got rid of bronchial infection and [...] or less). 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
--- OUTSIDE RECORDS SUMMARY | 2018-10-21 22:36 | XMS RPT_ITS | Continuity of Care Document ---
:1965 Author Organization [facility] Address [facility] [address] [place] [address] Phone Care Team Providers Name Role Phone [...] on eliquis clot gone Status: Active Elevated d-dimer (R79.89, 790.92) Status: Active Elevated liver enzymes (R74.8, 790.5) [...] days Quantity: 30 {Capsule} Refills: 3 Ordered:05-Jun-2018 DO, Sangeetha Dulce Maria DO, Sangeetha A Start : 05-Jun-2018 Active Eliquis 5 MG Oral Tablet 1 (one) Tablet bid for 30 days Quantity: 60 {Tablet} Refills: 0 Ordered:14-Aug-2018 DO, Sangeetha AFast DO, Sangeetha A Start : 14-Aug-2018 Active Gabapentin 100 MG Oral Capsule 1 (one) Capsule bid for 30 days Quantity: 60 {Capsule} Refills: 3 Ordered:05-Jun-2018 DO, Sangeetha AFast DO, Sangeetha A Start : 05-Jun-2018 Active Haloperidol 1 MG Oral Tablet 1 (one) Tablet am 1/2 pm for 30 days Quantity: 60 {Tablet} Refills: 4 Ordered:21-Jul-2018 DO, Sangeetha العراقي DO, Sangeetha A Start : 21-Jul-2018 Active Klor-Con M20 20 MEQ Oral Tablet Extended Release 3 (three) Tablet ER daily for 30 days Quantity: 90 {Tablet} Refills: 3 Ordered:29-Aug-2017 DO, Sangeetha JAVEDast DO, Sangeetha A Start : 29-Aug-2017 Active LamoTRIgine 150 MG Oral Tablet 1 (one) Tablet qhs for 30 days Quantity: 30 {Tablet} Refills: 3 Ordered:07-Jun-2018 DO, Sangeetha TEGANast DO, Sangeetha A Start : 07-Jun-2018 Active Lasix 40 MG Oral Tablet 1 (one) Tablet 2 in the am and 1 in pm for 30 days Quantity: 30 {Tablet} Refills: 4 Ordered:04-Sep-2018 DO, Sangeetha TEGANast DO, Sangeetha A Start : 04-Sep-2018 Active MELATONIN, 3MG (Oral Capsule) 1 cap daily (3 MG) Active Mirtazapine 15 MG Oral Tablet 1/2 Tablet qhs for 0 days Quantity: 30 {Tablet} Refills: 0 Ordered:14-Aug-2018 DO, Sangeetha AFast DO, Sangeetha A Start [...] Quantity: 30 {Tablet} Refills: 3 Ordered:14-Aug-2018 Sangeetha AFast DO, Sangeetha A Start : 14-Aug-2018 Active Synthroid 75 MCG Oral Tablet 1 (one) Tablet qd and 2 tabs on tuesday for 90 days Quantity: 102 {Tablet} Refills: 3 Ordered:21-Jul-2018 Sangeetha TEGANbud DO, Sangeetha A Start : 21-Jul-2018 Active Vitamin D3 5000 UNIT Oral Capsule 1 (one) Capsule Capsule qod for 0 days Quantity: 30 {Capsule} Refills: 3 Ordered:01-Mar-2017 Sangeetha JAVEDast DO, Sangeetha A Start : 01-Mar-2017 Active Zofran 4 MG Oral Tablet 1 (one) Tablet Tablet every 8 hours prn nausea vomting for 0 days Quantity: 10 {Tablet} Refills: 0 Ordered:23-Feb-2018 Long HORTICULTURE/FLORICULTURE TEACHER, Amelia L Start : 23-Feb-2018 Active AMITIZA, 24MCG (Oral Capsule) 1 Capsule Capsule bid for 0 days Quantity: 32 {Capsule} Refills: 0 Ordered:09-Feb-2016 Elodia Baxter Start : 27-Jul-2013 End : 09-Feb-2016 Inactive Amitriptyline HCl 10 MG Oral Tablet 1-2 Tablet qhs prn for 0 days Quantity: 60 {Tablet} Refills: 3 Ordered:19-May-2018 Long HORTICULTURE/FLORICULTURE TEACHER, Amelia L Start : 21-Oct-2017 End : 19-May-2018 Inactive Amoxicillin 875 MG Oral Tablet 1 (one) Tablet bid for 10 days Quantity: 20 {Tablet} Refills: 0 Ordered:21-Oct-2017 Tavon DAVIS, Sangeetha AFast DO, Sangeetha A Start : 21-Oct-2017 End : 31-Oct-2017 Inactive AVAPRO, 150MG (Oral Tablet) 1 qd for 0 days Refills: 0 Ordered:02-Dec-2006 Fast [...] : 25-Jan-2018 End : 19-May-2018 Inactive ERGOCALCIFEROL, 30778KFCH (Oral Capsule) 1 (one) Capsule Capsule twice [...] 0 days Refills: 0 Ordered:02-Dec-2006 DO, Sangeetha DO, Sangeetha A End : 02-Dec-2006 Inactive [...] : 23-Jul-2011 End : 02-Aug-2011 Inactive MAXITROL, 3.5-14700-1.1 (Ophthalmic Ointment) apply to eye lids as [...] hs (50 MG) Inactive Comments:Dr. Hankins NYSTATIN, 386661SVWL/ML (Mouth/Throat Suspension) 5cc Suspension 5 times daily [...] days Quantity: 30 {Tablet_DR} Refills: 3 Ordered:24-Apr-2013 DO, Sangeetha AFast DO, Sangeetha A Start : 24-Apr-2013 End : 24-Apr-2013 Discontinued ONGLYZA, 5MG (Oral Tablet) 1 Tablet qd for 0 days Quantity: 30 {Tablet} Refills: 3 Ordered:24-Apr-2013 DO, Sangeetha DO, Sangeetha A Start : 24-Apr-2013 End [...] 0 days Quantity: 30 {Tablet} Refills: 0 Ordered:25-Aug-2012, Sangeetha DO, Sangeetha A Start : 25-Aug-2012 End : 25-Aug-2012 Discontinued Comments:Dr. Clark VICODIN, 5-500MG (Oral Tablet) 1 (one) Tablet q 6hrs, prn for 0 days Quantity: 30 {Tablet} Refills: 0 Ordered:19-May-2018 Long HORTICULTURE/FLORICULTURE TEACHER, Amelia L Start : 12-May-2012 End : 19-May-2018 Discontinued Comments:This order discontinued per [employer]. ZOFRAN ODT, 4MG (Oral Tablet Dispersible) qd prn nausea (4 MG) End : 08-Aug-2015 Discontinued Comments:[facility] Allergies and Adverse Reactions Name Dates [...] and Lateral Result: Comments: See Note; NOTES: [facility] Imaging Services [address] [place] [address] Chest PA and Lateral MR#: [id number] Acct: [id number] Name: IFEOMA ASHRAF Rep #: [id number] : 1965 F 53 From: Dimitris Valderrama DO PCP: Sangeetha Irvin DO Status: REG CLI Study: Chest PA and Lateral Date of Exam: 07/14/18 Exam# [id number] Ordering Dr: Shahrzad Todd VIDEO JOURNALISTBuddy STUDY: X-RAY CHEST REASON FOR EXAM: Female, [...] Dimitris Valderrama DO at 8:47 EDT Tel [phone], Service support , CC: NUNU Todd; Sangeetha Irvin DO Compliance Spec: Signed 10-Jun-2018 Pacemaker Check Result: Comments: See Note; NOTES: [facility] [address] [place] [address] Pacemaker Check Date of Service: 06/09/18 0909 MR#: [id number] Acct: [id number] Name: IFEOMA ASHRAF Rep #: [id number] : 1965 From: Danica Pickering Age/Sex: 53/F Location[facility] Status: Signed Billing Codes ICD Device Billing: ICD Dev Prog Eval, Single 06/09/18 0913 <Elec tronically signed by Danica Pickering > Date Danica Pickering 06/10/18 1406<Electronically signed by Boone Ch MD> Cosigner Signat ure: Date (if applicable) Boone Ch MD CC: 08-Jun-2018 Cardiology Visit Report Result: Comments: See Note; NOTES: [facility] [address] [place] [address] OFFICE VISIT Date of Service: 05/31/18 MR#: [id number] Acct: [id number] Name: IFEOMA ASHRAF Rep #: [id number] : 1965 Provider: NUNU Todd Age/Sex: 53/F Location[place] [facility] Status: Signed with Addenda ADDENDUM by NUNU Todd on 06/01/18 at 0746 Addendum entered and electronic ally signed by LUPE Black 06/01/18 07:46: Patient's outside records from [facility] admission from 04/07/2018 to 04/27/2018 were [...] ultimately discharged home with requested follow-up with [facility] neurology or local neurolo gist in approximately [...] defibrillator (ICD) Z95.810 Generator change 11/13 @ [facility] LUPE Chapman Pacemaker check in February 2018 showed no VT/VF episodes since October 2017. She does not have a routine follow-up scheduled. This will be arranged for her. 3. Nonrheumatic mitral (valve) insufficiency I34.0 LUEP Hawk Her echocardiogram in February 2018 showed moderately severe mitral valve insufficiency. This may be contributing to her shortness of breath on exertion. At this time we will continue to monitor. She was again instructed to contact office if symptoms change and/or worsen. 4. Demand ischemia I24.8 Aleida Mcdaniel LUPE Black Her troponin I was elevated [...] prior to saving. Follow Up 6 Months (TAILOR GARMENT FITTER) 05/31/18 (GIUSEPPE) 06/01/18 0747 <Electronically signed by Shahrzad ANDRADE> Date ____ [...] ral regurgitation and tricuspid regurgitation. She presented [facility] on March 08, 2018 after being found unresponsive in her bathroom. During this hospitalization she was found to have an acute left axillary and left brachial vein DVT and was started on Eliquis. She presented to [facility] emergency department in March 2018 for altered mental status. Her CT scan prior to ER visit showed possible hygroma versus subacute resolving subdural hematoma. She was transferred to [facility] for further evaluation. These records are not available for review ish gio. Pt. denies chest, arm, jaw, or [...] 05/31/18 Pulse Rate 100 Intake Visit Reasons: [facility] to [facility] to [facility] to [place] Allergies amitriptyline Adverse Reaction (Severe, Verified 05/31/18 [...] rter-defibrillator (ICD) Z95.810 Generator change 11/13 @ [facility] LUPE Chapman Pacemaker check in February 2018 showed no VT/VF episodes since October 2017. She does not have a routine fo llow-up scheduled. This will be arranged for her. 3. Nonrheumatic mitral (valve) insufficiency I34.0 Aleida Todd, VIDEO JOURNALIST-C Her echocardiogram in February 2018 showed moderately [...] prior to saving. Follow Up 6 Months (TAILOR GARMENT FITTER) 05/31/18 (GIUSEPPE) Coding Level of Care Code [...] Visit Report Result: Comments: See Note; NOTES: [facility] [address] [place] [address]. [place] [address] OFFICE VISIT Date of Service: 06/05/18 1314 MR#: [id number] Acct: [id number] Name: TYLOR ASHRAF Dm Pulido Rep #: [id number] : 1965 From: Simeon Gresham MD Age/Sex: 53/F Location: [facility]MD Status: Signed Subjective - Date of Service Date of Service:: 06/05/18 - Chief Complaint Follow up DLBCL - His tory of Present Illness 53-year-old woman was diagnosed with non-Hodgkin's lymphoma, diffuse large B cell, stage IV of the uterine cervix with CIRCUS SUPERVISOR/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 She had [...] stem cell transplant in February 2007 at [facility] with complete remission. She is on [facility] follow [facility]. - Past [...] 6 months with CBC/CMP/LDH. Primary Care Provider: De bra Fast, DO Referring Provider: - Problem List (1) History of non-Hodgkin's lymphoma Status: Chronic (2) Iron deficiency Status: Chronic Code Visit Office Visits / Consults: 63495 OV L3 Est 1325 <Electronically signed by Simeon Gresham MD> Date Simeon Gresham MD Cosigner Signature: Date (if applicable) CC: 26-May-2018 Venous Duplex Upper Extremity Result: Comments: See Note; NOTES: [facility] Cardiovascular Services [address] [place] [address] Venous Duplex US, Unilateral 05/25/18 0903 MR#: [id number] Acct: [id number] Name: Alejandra ALDANAIFEOMA Sharath Rep #: [id number] : 1965 53 From: Juanjo Russo MD Attending Dr: Sangeetha Irvin DO Status: REG CLI Ordering Dr: Sangeetha Irvin DO Date: 05/25/18 Location: [facility] Sex: F C Admitted: Lois pedraza For [...] Dictated: 05/25/18 0903 Date Transcribed: 05/26/18 163 Compliance Spec: Signed 06-Apr-2018 Chest 1 View (Portable) Result: Comments: See Note; NOTES: [facility] Imaging Services [address] [place] [address] Chest 1 View (Portable) MR#: [id number] Acct: [id number] Name: IFEOMA ASHRAF Rep #: [id number] : 1965 F 53 From: Levy Lucas DO PCP: Sangeetha Irvin DO Status: PRE ER Study: Chest 1 View (Portable) Date of Exam: 04/06/18 Exam# [id number] Ordering Dr: Dejuan Bacon MD STUDY: X-RAY [...] Service support , CC: Sangeetha Irvin DO; eDjuan Bacon Compliance Spec: Signed 05-Apr-2018 Brain/Head without Contrast Result: Comments: See Note; NOTES: [facility] Imaging Services [address] [place] [address] Brain/Head without Contrast MR#: [id number] Acct: [id number] Name: IFEOMA ASHRAF Rep # : [id number] : 1965 F 53 From: Levy Lucas DO PCP: Sangeetha Irvin DO Status: REG CLI Study: Brain/Head without Contrast Date of Exam: 04/05/18 Exam# [id number] Ordering Dr: Shahrzad Bartlett MD STUDY : [...] 14:06 EDT Tel , Service support 1- [phone], N.B. : The above information has been verbally conveyed by Levy Lucas DO to connected , Covering Physician, on 04/05/2018 14:06:03 (ET). CC: Sangeetha Irvin DO; Shahrzad Bartlett MD Compliance Spec: Signed 05-Apr-2018 Brain/Head without Contrast Result: Comments: See Note; NOTES: [facility] Imaging Services [address] [place] [address] Brain/Head without Contrast MR#: [id number] Acct: [id number] Name: IFEOMA ASHRAF Rep # : [id number] : 1965 F 53 From: Levy Lucas DO PCP: Sangeetha Irvin DO Status: REG CLI Study: Brain/Head without Contrast Date of Exam: 04/05/18 Exam# [id number] Ordering Dr: Shahrzad Bartlett MD STUDY : [...] 14:06 EDT Tel , Service support 1- [phone], N.B. : The above information has been verbally conveyed by Levy Lucas DO to connected , Covering Physician, on 04/05/2018 14:06:03 (ET). CC: Sangeetha Irvin DO; Shahrzad Bartlett MD Compliance Spec: Signed 31-Mar-2018 Cardiology Visit Report Result: Comments: See Note; NOTES: [facility] [address] [place] [address] OFFICE VISIT Date of Service: 03/31/18 MR#: [id number] Acct: [id number] Name: Ifeoma Ashraf Rep #: [id number] : 1965 Provider: Boone Ch MD Age/Sex: 53/F Location[place] [facility] Status: Signed HPI HPI Chief Complaint: Follow-up [...] who presented to the emergency department at [facility] on 03/08/2018 aft er being found [...] care unit. She was eventually transferred to [facility]. Her major problem at this time [...] Lt brachial Intake Visit Reasons: DC to [facility] 03-14 Tourist Guide Required: No Accompanied by: mother Is patient [...] Presence of implantable cardioverter-defibrillator (ICD) (Chronic 0 2/15/18) History of cholecystectomy (Acute) History of stem [...] therapy. I would like to obtain a assistant professor of chemistry ry profile to be able to appropriately adjust any diuretics. At this juncture it may be prudent to add Lasix 40 mg a day to her current regimen. 2. Presence of implantable cardioverter-defibrillator (I CD) Z95.810 Generator change 11/13 @ [facility] Dr. Ahmadi Plan She does have [...] months. 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) Coding Level of Care Code Off vis,est,level [...] Flow Screening Result: Comments: See Note; NOTES: [facility] Cardiovascular Services [address] [place] [address] 11/22/17 0803 MR#: [id number] Acct: [id number] Name: IFEOMA ASHRAF Rep #: [id number] [...] DO Date Dictated: 11/22/17 0803 Date Transcribed: 11/22/171517 Compliance Spec: Signed 18-Nov-2017 Office Visit Report Result: Comments: See Note; NOTES: [place] [id number] [place] [address] OFFICE VISIT Date of Service: 11/17/17 MR#: [id number] Acct: [id number] Patient: IFEOMA ASHRAF Rep #: [id number] : 1965 Provider: Danica Pickering Age/Sex: 52/F [...] n office Interview Reason: scheduled follow up Paginator: [employer] Name: Lan Mckeon VR Model: [id number] Serial #: [id number] Implant Date: 11/10/17 Year(s): 0 Implant Physician: [...] and No drainage Bibiana ds Lead #1 Paginator Lead 1: [employer] Model Lead 1: 7121Q/58 Serial# Lead 1: [id number] Date Implanted Lead 1: 10/10/09 Position Lead [...] automatic cardioverter/defibr illator (AICD) Z95.810 10/06/2009 @ [facility] 2. Cardiomyopathy in other diseases classified elsewhere I43 11/17/17 1420 <Electronically signed by Danica Pickering > Date Danica Pickering 11/18/17 0813<Electronically signed by Noe Morris MD> Cosigner Signature: Date (if applicable) Noe Morris MD CC: 10-Nov-2017 Operative Report Result: Comments: See Note; NOTES: [facility] Medical Records Department [address] [facility] [place] [address] Operative Report 11/10/17 1148 MR#: [id number] Acct: [id number] Name: SALOME ASHRAF Rep #: [id number] : 1965 52 From: Lior Ahmadi MD PCP: Sangeetha Irvin DO Status: REG SDC Y Location: [facility] Operative Report Date of Procedure: 11/10/17 Preoperative diagnosis is device at end of life for normal battery depletion. Postoperative diagnosis same as above. After informed consent and IV antibiotics the patient was brought to the [facility] and the ski n over [...] chart documents provided by the device company small business sales representative procedure summary. 11/10/17 1150 <Electronically signed by Lior Ahmadi MD > Date Lior Ahmadi MD CC: Sangeetha Irvin DO; Lior Ahmadi MD Signed 03-Nov-2017 Office Visit Report Result: Comments: See Note; NOTES: [facility] [place] [address] OFFICE VISIT Date of Service: 11/03/17 MR#: [id number] Acct: [id number] Patient: IFEOMA ASHRAF Rep #: [id number] : 1965 Provider: Danica Pickering Age/Sex: 52/F [facility] [facility] Status: Signed Comments Summary Comments: Written and [...] in office Interview Reason: routine follow up Paginator: [employer] [place] Name: Current VR Model: 1211-36Q ICD Serial #: [id number] Implant Date: 10/10/09 Year(s): 8 Implant Physician: [...] Model Lead 1: 7121Q/58 Serial# Lead 1: [id number] Date Implanted Lead 1: 10/10/09 Position Lead [...] 11/03/17 1648<Electronically signed by Boone Ch MD> [facility] Signature: Date (if applicable) Boone Ch MD CC: 03-Nov-2017 Cardiology Visit Report Result: Comments: See Note; NOTES: [facility] [address] [place] [address] [address] [place] [address] OFFICE VISIT Date of Service: 11/03/17 MR#: [id number] Acct: [id number] Name: MALULUANAIFEOMA Rep #: [id number] : 1965 Provider: Boone Ch MD Age/Sex: 52/F Location[place] [facility] Status: Signed HPI HPI Details: IFEOMA ASHRAF, [...] 29 (25% per echo 03/11/2015) [facility] Medical History Type 2 diabetes mellitus without [...] of automatic cardioverter/defibrillator (AICD) Z95.810 10/06/2009 @ [facility] Plan She is status post ICD [...] was also being followed up at the [facility]. She is also on spironolactone and sh kelly has marginal blood pressures which have not [...] MD Cosigner Signature: Date (if applicable) CC: Sangeetah Irvin DO -Oct-2017 Chest PA and Lateral Result: Comments: See Note; NOTES: [facility] Imaging Services [address] [place] [address] Chest PA and Lateral MR#: [id number] Acct: [id number] Name: IFEOMA ASHRAF Rep #: [id number] : 1965 F 52 From: Dimitris Valderrama DO PCP: Sangeetha Irvin DO Status: PRE [facility] Study: Chest PA and Lateral Date of Exam: 11/03/17 Exam# [id number] Ordering Dr: Boone Ch MD STUDY: X-RAY [...] Dimitris Valderrama DO at 18:21 EST Tel [phone], Se rvice support , CC: Boone Ch MD; Sangeetha Irvin DO Compliance Spec: Signed 14-Oct-2017 Office Visit Report Result: Comments: See Note; NOTES: [facility] [place] [address] OFFICE VISIT Date of Service: 10/12/17 MR#: [id number] Acct: [id number] Patient: IFEOMA ASHRAF Rep #: [id number] : 1965 Provider: Danica Pickering Age/Sex: 52/F [place] [facility] [place]: Signed Comments Summary Comments: Single Chamber ICD Evaluation: Interrogation shows No VT/VF episodes since . No Alerts noted. Left pectoral pocket/incision w/o s/s of infection or erosion. Pt offers no cardiac complaints. Presenting rhythm shows Sinus Tachycardia @ 105 bpm. Left pectoral pocket/incision w/o s/s of infection or erosion. WATER RESOURCES ENGINEER=0%. Battery longevity approx 2.9 mos. At device check in June device showed longevity of 14 mos. D/T longevity decreasing quickly pt scheduled for ICD generator c mane with Dr. Ahmadi on 11/10/17 @ [facility]. Lead impedances, sensing and pace/sense threshold remain stable. No parameter changes made. Counters cleared. Pt scheduled for o.v and teaching on 11/03/17 and ICD g enerator change on 11/10/17. Device Device Date Interviewed: 10/12/17 Follow- up Location: in office Interview Reason: routine follow up Paginator: 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 [place] Model Lead 1: 7121Q/58 Serial# Lead 1: [id number] Date Implanted Lead 1: 10/10/09 Position Lead [...] IV Contrast Result: Comments: See Note; NOTES: [facility] Imaging Services [address] [place] [address] Abdomen WITH IV Contrast MR#: [id number] Acct: [id number] Name: IFEOMA ASHRAF Rep #: [id number] : 1965 F 52 From: Carl Vincent MD PCP: Sangeetha Irvin DO Status: [facility] CLI Study: Abdomen WITH IV Contrast Date of Exam: 06/15/17 Exam# [id number] Ordering Dr: Analisa Conway MD STUDY: CT [...] CC: Analisa Conway MD; Sangeetha Irvin DO Compliance Spec: Signed 15-Jun-2017 Spine Cervical without Contras Result: Comments: See Note; NOTES: [facility] Imaging Services [address] [place] [address] Spine Cervical without Contras MR#: [id number] Acct: [id number] Name: IFEOMA ASHRAF p #: [id number] : 1965 F 52 From: Zev Mandujano MD PCP: Sangeetha Irvin DO Status: REG CLI Study: Spine Cervical without Contras Date of Exam: 06/15/17 Exam# [id number] Ordering Dr: Analisa Conway MD STUDY: CT [...] CC: Analisa Conway MD; Sangeetha Irvin DO Compliance Spec: Signed 10-Feb-2017 Spine Lumbar without Contrast Result: Comments: See Note; NOTES: [facility] Imaging Services [address] [place] [address] Verdana 4d Spine Lumbar without Contrast MR#: [id number] Acct: [id number] Name: MARISEL ASHRAF Rep #: [id number] : 1965 F 51 From: Brian Gill MD PCP: Sangeetha Irvin DO Status: REG CLI Study: Spine Lumbar without Contrast Date of Exam: 02/10/17 Exam# [id number] Ordering Dr: Analisa Carr i, MD STUDY: [...] CC: Analisa Conway MD; Sangeetha Irvin DO Compliance Spec: Signed 20-Jan-2017 Liver Result: Comments: See Note; NOTES: [facility] Imaging Services [address] [facility] [place] [address] Verdana 4d Liver MR#: [id number] Acct: [id number] Name: IFEOMA ASHRAF Rep #: [id number] : 1965 F 51 From: Vincent Bui DO PCP: Sangeetha Irvin DO Status: REG CLI Study: Liver Date of Exam: 01/20/17 Exam# [id number] Ordering Dr: Sangeetha Irvin DO STUDY: ABDOMINAL [...] Vincent Bui DO at 23:43 EDT Tel [phone], Service support , CC: Sangeetha Irvin DO Compliance Spec: Signed 20-Jan-2017 Thyroid Result: Comments: See Note; NOTES: [facility] Imaging Services [address] [place] [address] Verdana 4d Thyroid MR#: [id number] Acct: [id number] Name: IFEOMA ASHRAF Rep #: [id number] : 1965 F 51 From: Jin Rolon PCP: Sangeetha Irvin DO Status: REG CLI Study: Thyroid Date of Exam: 01/20/17 Exam# [id number] Ordering Dr: Sangeetha Irvin DO STUDY: THYROID [...] Service support , CC: Sangeetha Irvin DO Compliance Spec: Signed 17-Nov-2016 Dexa Bone Density Study (HP) Result: Comments: See Note; NOTES: [facility] Imaging Services [address] [place] [address] Verdana 4d Dexa Bone Density Study (HP) MR#: [id number] Acct: [id number] Name: COL HARPAL ASHRAF Rep #: [id number] : 1965 F 51 From: Prashant Delgadillo MD PCP: Sangeetha Irvin DO Status: REG CLI Study: Dexa Bone Density Study (HP) Date of Exam: 11/17/16 Exam# [id number] Ordering Dr: Sangeetha Irvin DO STUDY: DUAL [...] Prashant Delgadillo MD at 10:52 EST Tel [phone], Service support [phone], CC: Sangeetha Irvin DO Compliance Spec: Signed 17-Nov-2016 SCREENING MAMM (CAD), BILAT Result: Comments: See Note; NOTES: [facility] Imaging Services [address] [place] [address] Verdana 4d SCREENING MAMM (CAD), BILAT MR#: [id number] Acct: [id number] Name: SALOME ASHRAF Rep #: [id number] : 1965 F 51 From: Prashant Delgadillo MD PCP: Sangeetha Irvin DO Status: REG CLI Study: SCREENING MAMM (CAD), BILAT Date of Exam: 11/17/16 Exam# [id number] Ordering Dr: Gary Irvin DO MAMMOGRAPHY - [...] biopsy of a clinically suspiciou s abnormality. [id number] Electronically Signed: Prashant Delgadillo MD at 12:55 EST Tel [phone], Service support [phone], CC: Sangeetha Irvin DO Compliance Spec: Signed 17-Nov-2016 SCREENING MAMM (CAD), BILAT Result: Comments: See Note; NOTES: [facility] Imaging Services [address] [place] [address] Verdana 4d SCREENING MAMM (CAD), BILAT MR#: [id number] Acct: [id number] Name: SALOME ASHRAF Rep #: [id number] : 1965 F 51 From: Prashant Delgadillo MD PCP: Sangeetha Irvin DO Status: REG CLI Study: SCREENING MAMM (CAD), BILAT Date of Exam: 11/17/16 Exam# [id number] Ordering Dr: Gary Irvin DO ADDENDUM by [...] delay biopsy of a clinically suspicious abnormality. [id number] Electronically Signed: Prashant Delgadillo MD at 13:07 EST Tel [phone], Service support [phone], 11/17/16 1315 Date cc: Sangeetha Irvin DO [...] delay biopsy of a clinically suspicious abnormality. [id number] Electronically Signed: Prashant Delgadillo MD at 12:55 EST Tel [phone], Ser vice support [phone], CC: Sangeetha Irvin DO Compliance Spec: Signed 19-Dec-2015 Liver Result: Comments: See Note; NOTES: [facility] Imaging Services [address] [place] [address] Verdana 4d Liver MR#: [id number] Acct: [id number] Name: IFEOMA ASHRAF Rep #: [id number] : 1965 F 50 From: Ziggy Santos MD PCP: Sangeetha Irvin DO Status: REG CLI Study: Liver Date of Exam: 12/19/15 Exam# [id number] Ordering Dr: Sangeetha Irvin DO STUDY: ABDOMINAL [...] Service support , CC: Sangeetha Irvin DO Compliance Spec: Signed 19-Dec-2015 Thyroid Result: Comments: See Note; NOTES: [facility] Imaging Services [address] [place] [address] Verdana 4d Thyroid MR#: [id number] Acct: [id number] Name: IFEOMA ASHRAF Sharath Abreu ep #: [id number] : 1965 F 50 From: Ziggy Santos MD PCP: Sangeetha Irvin DO Status: REG CLI Study: Thyroid Date of Exam: 12/19/15 Exam# [id number] Ordering Dr: Sangeetha Irvin DO STUDY: THYROID [...] Service support , CC: Sangeetha Irvin DO Compliance Spec: Signed 14-Aug-2015 Bilat Scrn Digital AND CAD Result: Comments: See Note; NOTES: [facility] Imaging Services [address] [place] [address] Verdana 4d Bilat Scrn Digital AND CAD MR#: [id number] Acct: [id number] Name: IFEOMA ASHRAF Rep #: [id number] : 1965 F 50 From: Prashant Delgadillo MD PCP: Sangeetha Irvin DO Status: REG CLI Study: Bilat Scrn Digital AND CAD Date of Exam: 08/14/15 Exam# [id number] Order ing Dr: Sangeetha Irvin DO MAMMOGRAPHY [...] Prashant Delgadillo MD at 10:49 EST Tel [phone], Service support [phone], CC: Sangeetha Irvin DO Compliance Spec: Signed 10-Mar-2015 Emergency Department Summary Result: Comments: See Note; NOTES: [facility] Medical Records Department [address] [place] [address] Emergency Department Summary MR#: [id number] Acct: [id number] Name: IFEOMA RASMUSSEN Rep #: [id number] : 1965 49 From: Mayito Roldan DO PCP: Sangeetha Irvin DO Status: [facility] ER DATE OF SERVICE: 02/28/2015 Addendum This [...] written for Percocet and Zofran per Dr. Ryder and was advised to follow up with [...] way. Mayito Roldan DO T: NTS JOB: [id number] 03/10/15 2329 <Electronically signed by Mayito Roldan DO> Date Mayito Roldan DO CC: Sangeetha Irvin DO Date Dictated: 02/28/15824 Date Transcribed: 02/28/15824 Compliance Spec: Signed 02-Mar-2015 Emergency Department Summary Result: Comments: See Note; NOTES: [facility] Medical Records Department [address] [place] [address] Emergency Department Summary MR#: [id number] Acct: [id number] Name: IFEOMA RASMUSSEN Sharath Rep #: [id number] : 1965 49 From: Alejandro Ryder DO PCP: Sangeetha Irvin DO Status: [facility] ER DATE OF SERVICE: 02/28/2015 CHIEF COMPLAINT: [...] The patient has plans to go to [facility]. I will give her local surgeon's name if she wants to speak with them or she can certainly also speak with Dr. Irvin. CLINICAL IMPRESSION: Biliary colic. Alejandro Ryder DO T: NTS JOB: [id number] 03/02/15 0743 <Electronically signed by Alejandro Ryder DO> Date Alejandro Ryder DO CC: Sangeetha Irvin DO Date Dictated: 718 Date Transcribed: 02/28/15718 Compliance Spec: Signed 28-Feb-2015 Discharge Instruction Result: Comments: See Note; NOTES: [facility] Medical Records Department [address] [place] [address] Discharge Instruction 02/28/15 0639 MR#: [id number] Acct: [id number] Name: IFEOMA ASHRAF Rep #: [id number] : 1965 49 From: Alejandro Ryder DO PCP: Sangeetha Irvin DO Status: REG [...] any unexpected problems, contact your doctor. Call [facility] ([phone]) or report to the closest ergency Room. Call 911 if necessary. 02/28/15 0640 <Electronically signed by Alejandro Ryder DO> Date Alejandro Ryder DO Cosign er Signature (If Indicated): Date CC: Sangeetha Irvin DO 28-Feb-2015 Gallbladder Result: Comments: See Note; NOTES: [facility] Imaging Services [address] [place] [address] Ultrasound Report MR#: [id number] Acct: [id number] Name: IFEOMA ASHRAF Rep #: [id number] : 1965 F 49 From: Prashant Delgadillo MD PCP: Sangeetha Irvin DO Status: REG ER Study: Gallbladder Date of Exam: 02/28/15 Exam# [id number] Ordering Dr: Alejandro Ryder DO STUDY: ABDOM INAL ULTRASOUND - RIGHT [...] Prashant Delgadillo MD at 8:15 EDT Tel [phone], Service support [phone], CC: Alejandro Ryder DO; Sangeetha Irvin DO Compliance Spec: Signed 11-Feb-2015 Spine Cervical without Contras Result: Comments: See Note; NOTES: [facility] Imaging Services [address] [place] [address] CAT Scan Report MR#: [id number] Acct: [id number] Name: IFEOMA ASHRAF Rep #: [id number] : 1965 F 49 From: Prashant Delgadillo MD PCP: Sangeetha Irvin DO Status: REG CLI Study: Spine Cervical without Contras Date of Exam: 02/11/15 Exam# [id number] Ordering Dr: Analisa Conway MD STUDY: CT [...] Prashant Delgadillo MD at 9:49 EDT Tel [phone], Service support [phone], CC: Analisa Conway MD; Sangeetha Irvin DO Compliance Spec: Signed 18-Jul-2014 Bilat Scrn Digital & CAD Result: Comments: See Note; NOTES: [facility] Imaging Services [address] [place] [address] Breast Imaging Report MR#: [id number] Acct: [id number] Name: IFEOMA ASHRAF Rep # : [id number] : 1965 F 49 From: Prashant Delgadillo MD PCP: Sangeetha Irvin DO Status: REG CLI Exam# [id number] Ordering Dr: Sangeetha Irvin DO MAMMOGRAPHY - [...] Prashant Delgadillo MD at 8:36 EDT Tel [phone], Servi ce support [phone], CC: Sangeetha Irvin DO Compliance Spec: Signed 18-Jul-2014 Liver Result: Comments: See Note; NOTES: [facility] Imaging Services [address] [place] [address] Ultrasound Report MR#: [id number] Acct: [id number] Name: IFEOMA ASHRAF Rep #: [id number] : 1965 F 49 From: Prashant Delgadillo MD PCP: Sangeetha Irvin DO Status: REG CLI Study: Liver Date of Exam: 07/18/14 Exam# [id number] Ordering Dr: Sangeetha Irvin DO STUDY: ABDOMINAL [...] Prashant Delgadillo MD at 9:34 EDT Tel [phone], Service support [phone], CC: Sangeetha Irvin DO Compliance Spec: Signed 18-Jul-2014 Thyroid Result: Comments: See Note; NOTES: [facility] Imaging Services [address] [place] [address] Ultrasound Report MR#: [id number] Acct: [id number] Name: IFEOMA ASHRAF Rep #: [id number] : 1965 F 49 From: Prashant Delgadillo MD PCP: Sangeetha Irvin DO Status: REG CLI Study: Thyroid Date of Exam: 07/18/14 Exam# [id number] Ordering Dr: Sangeetha Irvin DO STUDY: THYROID [...] Prashant Delgadillo MD at 8:41 EDT T [phone], Service support [phone], CC: Sangeetha Irvin DO Compliance Spec: Signed 05-Feb-2014 Brain/Head W/WO Contrast Result: Comments: See Note; NOTES: [facility] Imaging Services [address] [place] [address] CAT Scan Report MR#: [id number] Acct: [id number] Name: MALULUANAIFEOMA Rep #: [id number] : 1965 F 48 From: Prashant Delgadillo MD PCP: Sangeetha Irvin DO Status: REG CLI Study: Brain/Head W/WO Contrast Date of Exam: 02/05/14 Exam# [id number] Ordering Dr: Sangeetha Irvin DO STUD Y: [...] Prashant Delgadillo MD at 9:19 EDT Tel [phone], Service support [phone], CC: Sangeetha Irvin DO Compliance Spec: Signed Immunization Name Dates Details Influenza (3 years and up) on: 10-Jul-2008 Comments: injection given in left deltoid, pt tolerated welllot # [id number] Influenza (3 years and up) on: 09-Jul-2009 Comments: Lot #[id number]-right deltoidDose0.5mlgiven by Juventino Nye LPN Family History [...] 0.00 cm Results Date Description Value Details :59 BNP,B-Type NATRIURETIC PEPTIDE Comments: [facility] [address] [place], [place], [id number] B-TYPE JACKIE PEP 819.3 pg/mL (Abnormal) Range: 0-100 :59 CBC W/Diff, Automated Comments: [facility] [address] [place], [address] Absolute Lymph 1.08 {X10_3/ul} (Normal) Range: 0.83-4.51 Absolute Neut 5.9 {X10_3/uL} (Normal) Range: 2.0-7.7 IM GRAN % 0.400 % (Normal) Range: 0.0-0.9 Comments: IG% - Immature Granulocytes (promyelocytes, myelocytes andmetamyelocytes) > 1% indicates that a LEFT SHIFT is Present. BASO% 0.4 % (Normal) Range: 0-1 EO% 2.3 % (Normal) Range: 0-5 MONO% 4.9 % (Normal) Range: 0-10 LY% 14.3 % (Abnormal) Range: 19-41 NEUT% 77.7 % (Abnormal) Range: 47-70 MPV 11.0 fL (Normal) Range: 6.2-12.0 PLT 330 K/mm3 (Normal) Range: 150-450 RDW SD 56.6 fL (Abnormal) Range: 35.1-43.9 RDW CV 16.0 % (Abnormal) Range: 11.6-14.6 MCHC 30.6 {g/gl} (Abnormal) Range: 32-36 MCH 31.0 pg (Normal) Range: 27.0-32.0 MCV 101.1 fL (Abnormal) Range: 81-99 HCT 38.2 % (Normal) Range: 37-47 HGB 11.7 g/dL (Abnormal) Range: 12.0-15.0 RBC 3.78 {M/mm3} (Abnormal) Range: 4.2-5.4 WBC 7.5 K/mm3 (Normal) Range: 4.4-11.0 63-Itj-486562:59 Comprehensive Metabolic Profil Comments: 'TROP' Serial specimen #1, #2, #3, or #4: [address] [place] [address] [address] [place], [place], [id number] GAP 8 (Normal) Range: 5-15 CO2 29.0 mmol/L (Normal) Range: 21.0-32.0 CL 98 mmol/L (Normal) Range: 98-107 K 4.6 mmol/L (Normal) Range: 3.5-5.1 NA 135 mmol/L (Abnormal) Range: 136-145 T BILI 1.60 mg/dL (Abnormal) Range: 0.20-1.00 ALT 15 U/L (Normal) Range: 13-56 ALK P 263 U/L (Abnormal) Range: 45-117 AST 17 U/L (Normal) Range: 15-37 CA 9.3 mg/dL (Normal) Range: 8.5-10.1 A/G 1.1 {RATIO} (Normal) Range: 0.9-2.4 GLOB 3.1 g/dL (Normal) Range: 2.2-4.2 ALB 3.5 g/dL (Normal) Range: 3.2-5.0 T PROT 6.6 g/dL (Normal) Range: 6.4-8.2 BUN/CRE 13.9 {RATIO} (Normal) Range: 10-20 EST GFR - AA 73 mL/min (Normal) Comments: GFR Calc EST GFR 61 mL/min (Normal) Comments: Non- GFR Calc CREAT,SERUM 1.01 mg/dL (Normal) Range: 0.55-1.02 Comments: The validity of the calculated GFR AND GFRAA in patients over70 years has not been determined. Clinical correlation isessential. BUN 14 mg/dL (Normal) Range: 7-18 GLU 346 mg/dL (Abnormal) Range: 74-106 Comments: Glucose result greater than or equal to 200 mg/dLsuggests DIABETES MELLITUS per A.D.A. criteria.Please note revised GLUCOSE reference range igzgvjmyq77/02/2018. 84-Fnm-001228:59 CPK Total, Creatine Kinase Comments: 'TROP' Serial specimen #1, #2, #3, or #4: [address] [place] [address] [place], [place], [id number] CPK TOTAL 30 U/L (Normal) Range: 26-192 13-Kzs-688595:59 D-Dimer Quantitative (DVT/PE) Comments: [facility] [address] [place], [place], [phone] D-DIMER QUANT 1.44 {FEU/ug/m} (Abnormal) Range: 0.27-0.49 Comments: CRITICAL VALUE VERIFIED. CALLED TO MVEENUWC41/10/18 1440 Francois Quinn.RESULTS READ BACK BY SAME .D-Dimer ELEVATED (>0.49): Additional studies and clinicalassessments are indicated to conclude di agnosis of:Deep Vein Thrombosis (DVT) or Pulmonary Embolism (PE) 84-Myx-273260:59 Troponin-I Comments: 'TROP' Serial specimen #1, #2, #3, or #4: [address] [place] [address] [place], [place], [phone] TROPONIN-I 0.030 ng/mL (Normal) Comments: TROPONIN-I EXPECTED VALUES <0.045 Negative 0.045 - 0.590 Consistent with Cardiac Damage > OR = 0.600 Critical Value Not every elevated troponin is indicative of TX. T hesevalues should be used with clinical judgement in examiningthe patient's clinical picture for diagnosis. To establisha diagnosis of TX versus myocardial injury, there must be ademonstrated rise and/ or fall in the troponin values, inaddition to ischemic symptoms, EKG changes, new regionalwall motion abnormality, and/or angiographical evidence. PLEASE NOTE: REFERENCE RANGES EDITED 02/06/1829-Aug-20182-Fbw-817520:44 ANCA Comments: Is Patient Fasting? [facility] (refer to report for specific site)refer to report for address and phone number Atypical pANCA <1:20 {titer} (Normal) Comments: The atypical pANCA pattern has been observed in asignificant percentage of patients with ulcerative colitis,primary sclerosing cholangitis and autoimmune hepatitis.Performed at: [facility] [id number] Director: Omar Hood PhD, Phone: [phone] PERINUCLEAR Ab <1:20 {titer} (Normal) Comments: The presence of positive fluorescence exhibiting P-ANCA orC-ANCA patterns alone is not specific for the diagnosis ofWegener's Granulomatosis (WG) or microscopic polyangiitis.Decisions about treatment sh ould not be based solely onANCA IFA results. The International ANCA Group Consensusrecommends follow up testing of positive sera with both CO-3 and MPO- ANCA enzyme immunoassays. As many as 5% serumsamp les are positive only by EIA. Ref. AM J Clin Lwtdjq5588;111:507-513. CYTOPLASMIC Ab <1:20 {titer} (Normal) 7-Bag-368350:44 ANTINUCLEAR ANTIBODIES DIRECT Comments: [facility] (refer to report for specific site)refer to report for address and phone number LASHA-DIRECT Negative (Normal) Comments: Performed at: [facility] [address] [id number] Director: Omar Hood PhD, Phone: [phone] 9-Juv-521469:44 CPK Total, Creatine Kinase Comments: [facility] [address] [place], [place], [phone]) CPK TOTAL 33 U/L (Normal) Range: 26-192 1-Xwl-029820:44 Hemoglobin A1c Comments: [facility] [address] [place], [place], [address] HGB A1C 10.6 % (Abnormal) Range: 4.2-6.3 3-Kfw-222453:44 PRANEETH AND PE, Random UR Comments: Is Patient Fasting? [facility] (refer to report for specific site)refer to report for address and phone number NOTE Comment (Normal) Comments: Protein electrophoresis scan will follow via computer,mail, or minibus driver delivery. PRANEETH RESULT,U Comment (Normal) Comments: No monoclonality detected. M-SPIKE,UR% Not Observed % (Normal) GAMMA GLOB,U 5.5 % (Normal) BETA GLOB,U 14.2 % (Normal) YZCOP-1-SNGL,U 10.8 % (Normal) WNZFC-9-DMRI,U 7.6 % (Normal) ALBUMIN,U 62.0 % (Normal) PROTEIN,UR 27.8 mg/dL (Normal) 9-Mgo-205015:44 PRANEETH + Protein Elect, Serum Comments: Is Patient Fasting? [facility] (refer to report for specific site)refer to report for address and phone number NOTE: Comment (Normal) Comments: Protein electrophoresis scan will follow via computer,mail, or minibus driver delivery. PRANEETH RESULT,S Comment (Normal) Comments: No monoclonality detected. A/G RATIO 1.2 (Normal) Range: 0.7-1.7 GLOBULIN, TOTAL 2.9 g/dL (Normal) Range: 2.2-3.9 M-SPIKE g/dL (Normal) Comments: Not Observed GAMMA GLOBULIN 0.6 g/dL (Normal) Range: 0.4-1.8 BETA GLOBULIN 1.1 g/dL (Normal) Range: 0.7-1.3 XETKC-8-DYWH 0.9 g/dL (Normal) Range: 0.4-1.0 OZSOJ-0-HNDA 0.3 g/dL (Normal) Range: 0.0-0.4 ALBUMIN 3.4 g/dL (Normal) Range: 2.9-4.4 IMMUNOGL M 103 mg/dL (Normal) Range: 26-217 IMMUNO A 69 mg/dL (Abnormal) Range: 87-352 IMMUNO G 538 mg/dL (Abnormal) Range: 700-1600 PROTEIN,TOTAL 6.3 g/dL (Normal) Range: 6.0-8.5 :44 Rheumatoid Factor Comments: [facility] [address] [place], [address] RHEUMATOID FAC < 10.0 {IU/mL} (Normal) 2-Fsw-967334:44 Sjogren's Antibodies A/B Comments: [facility] (refer to report for specific site)refer to report for address and phone number Anti-SS-B < 0.2 {AI} (Normal) Range: 0.0-0.9 Anti-SS-A < 0.2 {AI} (Normal) Range: 0.0-0.9 4-Ujn-544440:44 Thyroid Stim Hormone (TSH) Comments: [facility] [address] [place], [phone] TSH 2.71 {uIU/mL} (Normal) Range: 0.358-3.74 4-Lrp-226199:44 Vitamin B12 1303 pg/mL (Abnormal) Comments: [facility] [address] [place], [address] Range: 211-911 5-Lkr-639175:44 Vitamin D,25 Hydroxy Comments: [facility] [address] [place], [address] Vitamin D 25-OH 62.4 ng/mL (Normal) Range: 29.95-100.01 Comments: Vitamin D 25(OH) Status Range Deficiency <20 ng/mL (50nmol/L) Insuffciency 20 - 30 ng/mL (50 - 75 nmol/L) Sufficiency 30 - 100 ng/mL (75 - 250 nmol/L) Toxicity >100 ng/mL (>250 nmol/L) 2-Lez-589955:06 Basic Metabolic Profile (BMP) Comments: PLEASE FAX TO DR. CANTU [phone] [address] [place], [phone] GAP 12 (Normal) Range: 5-15 CO2 26.0 [...] A.D.A. criteria.Please note revised GLUCOSE reference range jmgkparpn46/02/2018. 76-Lpj-56526:22 CBC W/Diff, Automated Comments: BMP TO [facility].CBCD, TSH, B12 TO DR. SANGEETHA IRVIN.[facility] [address] [place], [place], [address] Absolute Lymph 1.16 {X10_3/ul} (Normal) Range: 0.83-4.51 [...] 4.2-5.4 WBC 8.0 K/mm3 (Normal) Range: 4.4-11.0 59-Pec-42319:22 Vitamin B12 659 pg/mL (Normal) Comments: BMP TO NUNU.[facility].CBCD, TSH, B12 TO DR[address] SANGEETHA IRVIN.[facility] [address] [place], [place], [address] Range: 211-911 56-Mmy-68056:20 Basic Metabolic Profile (BMP) Comments: BMP TO NUNU.[facility].CBCD, TSH, B12 TO [address] SANGEETHA IRVIN.[facility] [address] [place], [place], [address] GAP 9 (Normal) Range: 5-15 CO2 27.0 [...] A.D.A. criteria.Please note revised GLUCOSE reference range stebebxse89/02/2018. 48-Fzu-85426:20 Thyroid Stim Hormone (TSH) Comments: BMP TO [facility].CBCD, TSH, B12 TO DR[address] SANGEETHA IRVIN.[facility] [address] [place], [place], [address] TSH 4.09 {uIU/mL} (Abnormal) Range: 0.358-3.74 30-Xgz-322159:23 Basic Metabolic Profile (BMP) Comments: [facility] [address] [place], [place], [address] GAP 7 (Normal) Range: 5-15 CO2 30.0 [...] A.D.A. criteria.Please note revised GLUCOSE reference range yugahtiiv03/02/2018. 07-Hoz-121030:23 BNP,B-Type NATRIURETIC PEPTIDE Comments: [facility] [address] [place], [place], [address] B-TYPE JACKIE PEP 892.7 pg/mL (Abnormal) Range: 0-100 56-Ttp-553256:23 CBC W/Diff, Automated Comments: [facility] [address] [place], [place], [address] Absolute Lymph 1.23 {X10_3/ul} (Normal) Range: 0.83-4.51 [...] 4.2-5.4 WBC 7.2 K/mm3 (Normal) Range: 4.4-11.0 14-Wyi-874678:41 CBC W/Diff, Automated Comments: Reason for Laboratory Test .[facility] [address] [place], [address] Absolute Lymph 0.85 {X10_3/ul} (Normal) Range: 0.83-4.51 [...] 4.2-5.4 WBC 5.7 K/mm3 (Normal) Range: 4.4-11.0 27-Cvh-007659:41 Comprehensive Metabolic Profil Comments: Reason for Laboratory Test .Serial Specimen #1, #2 or #3? [facility] [address] [place], [address] GAP 8 (Normal) Range: 5-15 CO2 28.0 [...] A.D.A. criteria.Please note revised GLUCOSE reference range kmtcuaxeu30/02/2018. 72-Lzw-566262:41 LDH 224 U/L (Normal) Comments: Reason for Laboratory Test .Serial Specimen #1, #2 or #3? 1[facility] [address] [facility], [place], [address] Range: 84-246 1-Gvy-897370:41 URINE GENESIS CULTURE-IDENTIFICATN Comments: add to urine in lab; PATIENT NOT FASTINGPERFORMED BY: [facility] [address] [facility] [id number] Information: SRC:JUAN ([id number]) Result 1 ENTEAE (Abnormal) Comments: Enterobacter aerogenes1,000 [...] S Urine Final report Culture,Comprehensi (Abnormal) ve 78-Dhm-88493:46 AFP, Tumor Marker Comments: Is Patient ? [facility] (refer to report for specific site)refer to report for address and phone number AFP TUMOR 2253 10.0 ng/mL (Abnormal) Range: 0.0-8.3 Comments: [employer] ECLIA methodologyPerformed at: CB - [facility] [address] [id number] Director: Omar Hood PhD, Phone: [phone] CBC W/Diff, Automated Comments: [facility] [address] [place], [address] Absolute Lymph 0.95 {X10_3/ul} (Normal) Range: 0.83-4.51 [...] 4.2-5.4 WBC 5.6 K/mm3 (Normal) Range: 4.4-11.0 :46 Comprehensive Metabolic Profil Comments: PLEASE ADD T3F T4F TO BLOOD FROM 05-25-18 [facility] [address] [facility] [address] [place], [place], [address] GAP 9 (Normal) Range: 5-15 CO2 28.0 [...] A.D.A. criteria.Please note revised GLUCOSE reference range imlekghax36/02/2018. 86-Ogu-77751:46 Digoxin Level Comments: [facility] [address] [place], [place], [address] DIG 0.71 ng/mL (Abnormal) Range: 0.80-2.00 :46 Free T3 Comments: PLEASE ADD T3F T4F TO BLOOD FROM 05-25-18G2 [address] [facility] [address] [place], [place], [address] FREE T3 3.2 pg/mL (Normal) Range: 2.18-3.98 :46 Hemoglobin A1c Comments: [facility] [address] [place], [address] HGB A1C 5.4 % (Normal) Range: 4.2-6.3 :46 Lipid Profile Comments: PLEASE ADD T3F T4F TO BLOOD FROM 05-25-18G2 [address] [facility] [address] [place], [place], [address] VLDL 22 mg/dL (Normal) Range: 5-40 LDL [...] High Risk :46 Microalb:Creat Ratio,Random UR Comments: [facility] [address] [place], [place], [address] MALB:CREAT 7.8 {mg/g_CRE} (Normal) MICROALBUMIN,UR 10.9 mg/L (Normal) UR CREAT 139.00 mg/dL (Normal) :46 T4 Free Direct Comments: PLEASE ADD T3F T4F TO BLOOD FROM 05-25-18G2 [address] [place] [address] [address] [place], [address] T4 FREE DIRECT 1.11 ng/dL (Normal) Range: 0.76-1.46 :46 Thyroid Stim Hormone (TSH) Comments: PLEASE ADD T3F T4F TO BLOOD FROM 05-25-[address] [place] [address] [address] [place], [address] TSH 0.31 {uIU/mL} (Abnormal) Range: 0.358-3.74 :46 Urinalysis, Complete Comments: How was Urine Obtained? CLEAN [facility] [id number] [place], [address] MUCUS, URINE 0 SEEN {/hpf} (Normal) [...] :46 Vitamin B12 368 pg/mL (Normal) Comments: [facility] [id number] [place], [address] Range: 211-911 :46 Vitamin D,25 Hydroxy Comments: [facility] [id number] [place], [address] Vitamin D 25-OH 64.5 ng/mL (Normal) Range: 29.95-100.01 Comments: Vitamin D 25(OH) Status Range Deficiency <20 ng/mL (50nmol/L) Insuffciency 20 - 30 ng/mL (50 - 75 nmol/L) Sufficiency 30 - 100 ng/mL (75 - 250 nmol/L) Toxicity >100 ng/mL (>250 nmol/L) [id number]:52 Urinalysis, Complete Comments: Order Date: 04/06/18Has pt arrived? YHow was Urine Obtained? [facility] [id number] [place], [place], [id number] HYALINE CAST 5-10 SEEN {/lpf} (Normal) Range: [...] (Normal) CLARITY Cloudy (Normal) COLOR Yellow (Normal) [id number] CBC W/Diff, Automated Comments: [facility] [id number] [place], [place], [id number] OVALOCYTE RARE (Normal) MACROCYTE 1+ (Normal) ANISO [...] 4.2-5.4 WBC 9.1 K/mm3 (Normal) Range: 4.4-11.0 [id number] Comprehensive Metabolic Profil Comments: [facility] [id number] [place], [address] GAP 12 (Normal) Range: 5-15 CO2 30.0 [...] Comments: Please note revised GLUCOSE reference range skyetqzca84/02/2018. 69-Axa-074431:30 Lactic Acid Comments: Yes/No query for Sepsis Lactate Rule [facility] [address] [place], [address] LACTIC ACID 6.7 mmol/L (Abnormal) Range: 0.4-2.0 Comments: Critical Result(s) Called Lisa RIVERA at: 20:23: by: BRITTANY TORRES 89-Geg-247521:30 Partial Thromboplast Time Comments: [facility] [address] [place], [address] PTT 41.3 s (Abnormal) Range: 24.1-36.2 25-Jrr-500742:30 Prothrombin Time w/INR Comments: [address] [place], [address] INR 2.3 (Normal) PROTIME 25.6 s (Abnormal) Range: 11.7-14.9 77-Ewk-962893:30 Troponin-I Comments: [address] [place], [address] TROPONIN-I 0.046 ng/mL (Abnormal) Comments: TROPONIN-I EXPECTED VALUES <0.045 Negative 0.045 - 0.590 Consistent with Cardiac Damage > OR = 0.600 Critical Value Not every elevated troponin is indicative of TX. T hesevalues should be used with clinical judgement in examiningthe patient's clinical picture for diagnosis. To establisha diagnosis of TX versus myocardial injury, there must be ademonstrated rise and/ or fall in the troponin values, inaddition to ischemic symptoms, EKG changes, new regionalwall motion abnormality, and/or angiographical evidence. PLEASE NOTE: REFERENCE RANGES EDITED 02/06/1805-Apr-201892-Azq-982911:08 Ammonia Comments: [facility] [address] [place], [address] AMMONIA 20.0 umol/L (Normal) Range: 11-32 99-Byr-357427:08 CBC-Complete Blood Cnt No Diff Comments: [facility] [address] [place], [address] MPV 10.6 fL (Normal) Range: 6.2-12.0 PLT [...] 4.2-5.4 WBC 6.6 K/mm3 (Normal) Range: 4.4-11.0 82-Jtx-711708:08 Comprehensive Metabolic Profil Comments: [facility] [address] [place], [address] GAP 9 (Normal) Range: 5-15 CO2 35.0 [...] Please note revised GLUCOSE reference range /02/2018. 76-Dfi-634054:08 Differential Comment Comments: [facility] [address] [place], [place], [address] SMEAR COMMENT COMMENT (Normal) Comments: SLIDE SCANNED - 1+ ANISO NOTED. 31-Vwg-19837:55 Urinalysis, Complete Comments: How was Urine Obtained? [facility] [address] [place], [place], [phone] AMORPHOUS 2+ (Normal) HYALINE CAST 5-10 SEEN [...] (Normal) :55 Urine Drug Screen (VISTA) Comments: [facility] [address] [place], [address] TO BE CONFIRMED (Normal) Comments: CONFIRMATORY TESTING [...] TESTING MUST BE ORDERED SEPARATELY. USE TESTMNEMONIC: RUST :59 Bedside Glucose Comments: [facility] LaboratoryPoint of [address] [place] [address] BEDSIDE GLU 169 mg/dL (Abnormal) Range: 70-110 Comments: MANAGEMENT OF PATIENT CARE PER NURSING PROTOCOL :35 Basic Metabolic Profile (BMP) Comments: [facility] [address] [place], [address] GAP 16 (Abnormal) Range: 5-15 CO2 15.0 mmol/L (Abnormal) Range: 21.0-32.0 CL 104 mmol/L (Normal) Range: 98-107 K 6.2 mmol/L (Abnormal) Range: 3.5-5.1 Comments: Critical Result(s) Called at: 01:06:28 03/08/2018 by:ANSLEY HOLLOWAY2,MANAGER IMAGING NA 135 mmol/L (Abnormal) Range: 136-145 CA [...] A.D.A. criteria.Please note revised GLUCOSE reference range evyhkmdip59/02/2018. 88-Eps-949738:59 Acetaminophen (Tylenol) Level Comments: [facility] [address] [place], [place], [address] ACETAMINOPHEN 4.9 ug/mL (Abnormal) Range: 10.0-30.0 Comments: Slight Icterus, Result may be falsely decreased. 86-Yiz-661755:59 Acetone Serum Comments: [facility] [address] [place], [place], [address] ACETONE SERUM NEGATIVE (Normal) :59 Alcohol, Blood (Medical)-Serum Comments: [facility] [address] [place], [place], [address] SERUM ETOH 8.0 mg/dL (Normal) Comments: The serum:whole blood ethanol ratio is approximately 1.14and varies slightly with hematocrit.Medical Alcohol reference interval and critical value innon-tolerant individuals; 50 - 100 Impairment 100 Intoxication 100 - 250 Severe Poisoning 250 - 400 Deep/possible fatal coma 30-Lno-752509:59 Digoxin Level Comments: [facility] [address] [place], [address] DIG 0.32 ng/mL (Abnormal) Range: 0.80-2.00 63-Lig-072771:59 Lactic Acid Comments: Yes/No query for Sepsis Lactate Rule [facility] [address] [place], [address] LACTIC ACID 12.4 mmol/L (Abnormal) Range: 0.4-2.0 Comments: Critical Result(s) Called at: 00:52:58 03/08/2018 by:ANSLEY OWENSMANAGER IMAGING 71-Pot-852239:59 Partial Thromboplast Time Comments: [facility] [address] [place], [address] PTT 33.7 s (Normal) Range: 24.1-36.2 65-Ygw-863246:59 Prothrombin Time w/INR Comments: [facility] [address] [place], [address] INR 2.4 (Normal) PROTIME 26.4 s (Abnormal) Range: 11.7-14.9 :59 Salicylate Comments: [facility] [address] [place], [address] SALICYLATE < 1.7 mg/dL (Abnormal) Range: 2.8-20.0 Comments: Slight Icterus, Result may be falsely decreased. 87-Hve-306681:02 Blood Gases by [facility] Comments: [facility] LaboratoryPoint of [address] [place] [address] SO2 ISTAT 99 % (Normal) Range: [...] Radial (Normal) BLD GAS TYPE ART (Normal) 49-Zgj-992439:52 Bedside Glucose Comments: [facility] LaboratoryPoint of [address] [place], [place] [address] BEDSIDE GLU 214 mg/dL (Abnormal) Range: 70-110 Comments: MANAGEMENT OF PATIENT CARE PER NURSING PROTOCOL 63-Bor-197267:37 Basic Metabolic Profile (BMP) Comments: [facility] [address] [place], [place], [address] GAP 19 (Abnormal) Range: 5-15 CO2 11.0 mmol/L (Abnormal) Range: 21.0-32.0 CL 99 mmol/L (Normal) Range: 98-107 K 7.6 mmol/L (Abnormal) Range: 3.5-5.1 Comments: Moderate Hemolysis, Result may be falsely increased.Critical Result(s) Called at: 23:10:30 03/07/2018 by:Chelsea jimenez TO DR. JOHN SOLANO 129 mmol/L (Abnormal) Range: 136-145 CA 8.5 [...] A.D.A. criteria.Please note revised GLUCOSE reference range eqfuewqfj93/02/2018. 48-Uow-685766:37 CBC W/Diff, Automated Comments: [facility] [address] [place], [place], [address] CRENATED RBC 1+ (Normal) ANISO 1+ (Normal) [...] K/mm3 (Normal) Range: 4.4-11.0 :37 Lipase Comments: [facility] [address] [place], [place], [address] LIPASE 86 U/L (Normal) Range: 73-393 00-Xtt-379616:37 Liver Profile Comments: [facility] [address] [place], [place], [address] D BILI 1.07 mg/dL (Abnormal) Range: 0.00-0.30 T BILI 2.40 mg/dL (Abnormal) Range: 0.20-1.00 ALT 120 U/L (Abnormal) Range: 13-56 ALK P 94 U/L (Normal) Range: 45-117 AST 149 U/L (Abnormal) Range: 15-37 Comments: Moderate Hemolysis, Result may be falsely increased. GLOB 2.9 g/dL (Normal) Range: 2.2-4.2 ALB 3.0 g/dL (Abnormal) Range: 3.2-5.0 T PROT 5.9 g/dL (Abnormal) Range: 6.4-8.2 :37 Magnesium Comments: [facility] [address] [place], [place], [address] MG 2.0 mg/dL (Normal) Range: 1.6-2.6 Comments: Moderate Hemolysis, Result may be falsely increased. 27-Kba-297783:37 Troponin-I Comments: [facility] [address] [facility] [address] [place], [place], [address] TROPONIN-I 0.081 ng/mL (Abnormal) Comments: TROPONIN-I EXPECTED VALUES <0.045 Negative 0.045 - 0.590 Consistent with Cardiac Damage > OR = 0.600 Critical Value Not every elevated troponin is indicative of TX. T hesevalues should be used with clinical judgement in examiningthe patient's clinical picture for diagnosis. To establisha diagnosis of TX versus myocardial injury, there must be ademonstrated rise and/ or fall in the troponin values, inaddition to ischemic symptoms, EKG changes, new regionalwall motion abnormality, and/or angiographical evidence. PLEASE NOTE: REFERENCE RANGES EDITED 02/06/1824-Feb-20186-Vmc-273785:21 CMV ANTIBODY (34128) Comments: today; PATIENT NOT FASTINGPERFORMED BY: [facility]St[facility] HospitalZslihg8233 [facility] [id number] Cytomegalovirus (CMV) Ab, IgG <0.60 U/mL (Normal) Range: 0.00-0.59 Comments: Negative <0.60 Equivocal 0.60 - 0.69 Positive >0.69 5-Xpt-567498:21 HEPATITIS PANEL (74740) Comments: today; PATIENT NOT FASTINGPERFORMED BY: [facility]6370 [facility] [id number] Hep C Virus Ab <0.1 {s/co_ratio} (Normal) Range: 0.0-0.9 Comments: Negative: < 0.8 Indeterminate: 0.8 - 0.9 Positive: > 0.9 . The CDC recommends that a positive HCV antibody result be followed up with a HCV Nucleic Acid Amplification test (201612). Hep B Core Ab, IgM Negative (Normal) HBsAg Screen Negative (Normal) Hep A Ab, IgM Negative (Normal) 0-Qjm-940846:21 EBV Panel (90854) Comments: today; PATIENT NOT FASTINGPERFORMED BY: [facility]6370 [facility] [id number] Interpretation: SPRCS (Normal) Comments: EBV Interpretation Chart [...] <36.0 Equivocal 36.0 - 43.9 Positive >43.9 32-Nqa-901671:19 CBC W/Diff, Automated Comments: Order Date: 02/23/18Order Info: 0184-1 - CBCDOrder Info: 95403-8 - [facility] [address] [place], [address] MACROCYTE 1+ (Normal) ANISO RARE [...] 4.2-5.4 WBC 6.9 K/mm3 (Normal) Range: 4.4-11.0 58-Mys-271882:19 Comprehensive Metabolic Profil Comments: Order Date: 02/23/18Order Info: 0786-1 - CMPOrder Info: 1798-8 - AMYOrder Info: 3040-3 - [facility] [address] [place], [address] GAP 11 (Normal) Range: 5-15 CO2 25.0 [...] A.D.A. criteria.Please note revised GLUCOSE reference range wkqnhgrau60/02/2018. 74-Hdb-420425:19 Erythrocyte Sed Rate Comments: Order Date: 02/23/18Order Info: 0184-1 - CBCDOrder Info: 52619-4 - [facility] [address] [place], [address] SED RATE 16 mm/h (Normal) Range: 0-30 31-Rks-092660:19 Lipase (73497) Comments: Order Date: 02/23/18Order Info: 0786- 1 - CMPOrder Info: 17988 - AMYOrder Info: 3040-3 - [facility] [address] [place], [address] LIPASE 92 U/L (Normal) Range: 73-393 21-Pqa-169581:19 Amylase (03428) Comments: Order Date: 02/23/18Order Info: 0786- 1 - CMPOrder Info: 8 - AMYOrder Info: 3040-3 - [facility] [address] [place], [address] ARIAN 27 U/L (Normal) Range: 25-115 7-Btq-390226:15 Amylase Comments: CMP, CBCD IS FOR DR ORONA IS FOR [facility] [address] [place], [address] ARIAN 29 U/L (Normal) Range: 25-115 7-Gzv-769262:15 CBC W/Diff, Automated Comments: CMP, CBCD IS FOR DR ORONA IS FOR [facility] [address] [place], [address] ANISO 1+ (Normal) Absolute Lymph 0.41 {X10_3/ul} [...] 4.2-5.4 WBC 5.3 K/mm3 (Normal) Range: 4.4-11.0 1-Hir-045744:15 Comprehensive Metabolic Profil Comments: CMP, CBCD IS FOR DR ORONA IS FOR DR Benjaminluana [facility] [address]ef[address] [place], [address] GAP 9 (Normal) Range: 5-15 CO2 27.0 [...] A.D.A. criteria.Please note revised GLUCOSE reference range thabhfmjt57/02/2018. 5-Hlz-527533:15 Digoxin Level Comments: CMP, CBCD IS FOR DR ORONA IS FOR [facility] [address] [place], [place], [address] DIG 0.92 ng/mL (Normal) Range: 0.80-2.00 5-Mhw-776344:15 Lipase Comments: [facility], CBCD IS FOR DR ORONA IS FOR [facility] [address] [place], [place], [address] LIPASE 101 U/L (Normal) Range: 73-393 0-Jsv-232966:15 Lipid Profile Comments: [facility], CBCD IS FOR DR ORONA IS FOR [facility] [address] [place], [place], [address](767) VLDL 15 mg/dL (Normal) Range: 5-40 LDL [...] 200-240 mg/dL Borderline >240 mg/dL High Risk 2-Ltr-766783:15 Magnesium Comments: CMP, CBCD IS FOR DR ORONA IS FOR DR [facility] [address] [place], [address] MG 1.8 mg/dL (Normal) Range: 1.6-2.6 4-Vui-057779:15 Microalb:Creat Ratio,Random UR Comments: CMP, CBCD IS FOR DR ORONA IS FOR [facility] [address] [place], [address] MALB:CREAT 34.3 {mg/g_CRE} (Abnormal) MICROALBUMIN,UR 58.6 mg/L (Normal) UR CREAT 171.00 mg/dL (Normal) 2-Lun-052690:15 Thyroid Stim Hormone (TSH) Comments: CMP, CBCD IS FOR DR ORONA IS FOR [facility] [address] [place], [address] TSH 1.84 {uIU/mL} (Normal) Range: 0.358-3.74 7-Rle-730267:15 Vitamin B12 383 pg/mL (Normal) Comments: CMP, CBCD IS FOR DR ORONA IS FOR [facility] [address] [place], [address] Range: 211-911 5-Eoi-487536:15 Vitamin D,25 Hydroxy Comments: CMP, CBCD IS FOR DR ORONA IS FOR [facility] [address] [place], [address] Vitamin D 25-OH 72.0 ng/mL (Normal) Range: 29.95-100.01 Comments: Vitamin D 25(OH) Status Range Deficiency <20 ng/mL (50nmol/L) Insuffciency 20 - 30 ng/mL (50 - 75 nmol/L) Sufficiency 30 - 100 ng/mL (75 - 250 nmol/L) Toxicity >100 ng/mL (>250 nmol/L) 04-Rbc-895438:14 Blood Glucose , Office (95056) Blood Glucose , Office 137 (Normal) 17-Xtj-891769:14 HgA1C , Office (86044) HgA1C , Office 6.1 % (Normal) Range: 4.6 - 7.1 :35 CBC W/Diff, Automated Comments: [facility] [address] [place], [place], [address] Absolute Lymph 1.30 {X10_3/ul} (Normal) Range: 0.83-4.51 [...] 4.2-5.4 WBC 4.2 K/mm3 (Abnormal) Range: 4.4-11.0 :33 Comprehensive Metabolic Profil Comments: Reason for Laboratory Test [facility] [address] [place], [place], [address] GAP 8 (Normal) Range: 5-15 CO2 31.0 mmol/L (Normal) Range: 21.0-32.0 CL 99 mmol/L (Normal) Range: 98-107 K 3.4 mmol/L (Abnormal) Range: 3.5-5.1 NA 138 mmol/L (Normal) Range: 136-145 T BILI 0.70 mg/dL (Normal) Range: 0.20-1.00 ALT 27 U/L (Normal) Range: 13-56 Comments: Please note revised ALT reference range oypkcoizz90/28/2018. ALK P 102 U/L (Normal) Range: 45-117 [...] A.D.A. criteria.Please note revised GLUCOSE reference range vxptsgzab98/02/2018. 80-Lub-29128:33 LDH 198 U/L (Normal) Comments: Reason for Laboratory Test OVSerial Specimen #1, #2 or #3? 1WK[facility] [address] [place], [place], [address] Range: 84-246 23-Tgr-017231:15 Culture, Urine Comments: [facility] [address] [place], [place], [address] CUUR See Note (Normal) Comments: VERBAL ORDER DR. IRVIN'S OFFICE Urine CultureORGANISM 1: Mixed Gram Positive OrganismsColony Count 11,000-25,000MIX CULTURE Mixed contaminants. Submit a new specimen if indicated. :11 CBC W/Diff, Automated Comments: [facility] [address] [place], [address] Absolute Lymph 1.34 {X10_3/ul} (Normal) Range: 0.83-4.51 [...] 4.2-5.4 WBC 5.4 K/mm3 (Normal) Range: 4.4-11.0 67-Orr-511239:11 Comprehensive Metabolic Profil Comments: Comments: [facility] [address] [place], [address] GAP 7 (Normal) Range: 5-15 CO2 28.0 mmol/L (Normal) Range: 21.0-32.0 CL 100 mmol/L (Normal) Range: 98-107 K 3.9 mmol/L (Normal) Range: 3.5-5.1 NA 135 mmol/L (Abnormal) Range: 136-145 T BILI 0.70 mg/dL (Normal) Range: 0.20-1.00 ALT 31 U/L (Normal) Range: 13-56 Comments: Please note revised ALT reference range zbiasjbub02/28/2018. ALK P 110 U/L (Normal) Range: 45-117 [...] A.D.A. criteria.Please note revised GLUCOSE reference range nhifesncj50/02/2018. 13-Lkt-314846:10 Urinalysis, Complete Comments: ORDERED UACDR.JACINDA ORDERED CMP AND CBCDComments: clean catchComments: clean catchHow was Urine Obtained? FASHION STYLING INTERN TO [facility] [address] [place], [address] MUCUS, URINE RARE {/hpf} (Normal) BACTERIA [...] (Normal) CLARITY Cloudy (Normal) COLOR Yellow (Normal) 4-Kyn-696283:42 ,Serum,hCG Quali. Comments: Comments: use blood in [facility] [address]jfpvkkiil[address]104 [facility], [address] HCGSQUAL NEGATIVE {Negative} (Normal) Range: 0-9 Nonpreg HCG Qual triggr 2 m[iU]/mL (Normal) 0-Aks-285349:41 Basic Metabolic Profile (BMP) Comments: [facility] Fuft[address]ji[address] [place], [address] GAP 10 (Normal) Range: 5-15 [...] A.D.A. criteria.Please note revised GLUCOSE reference range iawlgjhfo30/02/2018. 5-Iha-287386:41 CBC-Complete Blood Cnt No Diff Comments: [facility] [address] [place], [place], [address] MPV 9.6 fL (Normal) Range: 6.2-12.0 PLT [...] 4.2-5.4 WBC 8.7 K/mm3 (Normal) Range: 4.4-11.0 8-Gct-204821:41 Prothrombin Time w/INR Comments: [address] [place], [address] INR 1.0 (Normal) PROTIME 12.9 s (Normal) Range: 11.7-14.9 :00 Culture, Urine Comments: [address] [place], [address] CUUR See Note (Normal) Comments: [...] &lt ;=20 S(NF) indicates non-formulary drug at [facility]. Approval by Infectious Disease Specialist required before non- formulary drugs may be ordered and/or dispensed. :27 AFP, Tumor Marker Comments: Is Patient ? NPatient's Weight (LBS.): 124Number of Fetuses: 0[facility] (refer to report for specific site)refer to report for address and phone number AFP TUMOR 2253 6.8 ng/mL (Normal) Range: 0.0-8.3 Comments: BioActor ECLIA methodologyPerformed at: [facility] [address] [id number] Director: Omar Hood PhD, Phone: [phone] :27 CBC W/Diff, Automated Comments: [facility] [address] [place], [place], [address] Absolute Lymph 1.47 {X10_3/ul} (Normal) Range: 0.83-4.51 [...] 4.2-5.4 WBC 6.0 K/mm3 (Normal) Range: 4.4-11.0 32-Net-21929:27 Comprehensive Metabolic Profil Comments: [facility] [address] [place], [address] GAP 9 (Normal) Range: 5-15 CO2 28.0 [...] Range: 70-110 :27 Microalb:Creat Ratio,Random UR Comments: [facility] [address] [place], [place], [address] MALB:CREAT 17.4 {mg/g_CRE} (Normal) MICROALBUMIN,UR 37.5 mg/L (Normal) UR CREAT 215.00 mg/dL (Normal) :40 CBC W/Diff, Automated Comments: [facility] [address] [place], [place], [address] Absolute Lymph 1.60 {X10_3/ul} (Normal) Range: 0.83-4.51 [...] 4.2-5.4 WBC 10.9 K/mm3 (Normal) Range: 4.4-11.0 33-Fxt-11222:39 Comprehensive Metabolic Profil Comments: Order Date: 12/06/16Order Info: 0786-1 - *CMP Complete Metabolic PanelWKettering Health [facility] [address]qfg[address] [place], [address] GAP 10 (Normal) Range: 5-15 CO2 27.0 [...] per A.D.A. criteria. :15 Culture, Urine Comments: [facility] [address]msmh[address] [place], [place], [address] CUUR See Note (Normal) Comments: Urine CultureORGANISM [...] $ <=20 S(NF) indicates non-formulary drug at [facility]. Approval by Infectious Disease Specialist required before non-formulary drugs may be ordered and/or dispensed. :35 HgA1C , Office (28029) HgA1C , Office 6.5 % (Normal) Range: 4.6 - 7.1 :07 AFP, Tumor Marker Comments: Is Patient ? N[facility] (refer to report for specific site)refer to report for address and phone number AFP TUMOR 2253 8.5 ng/mL (Abnormal) Range: 0.0-8.3 Comments: Khanh ECLIA methodologyPerformed at: [facility] [address] [id number] Director: Omar Hood PhD, Phone: [phone] :[phone] CBC W/Diff, Automated Comments: [facility] [address] [place], [address] Absolute Lymph 1.17 {X10_3/ul} (Normal) [...] Range: 4.4-11.0 31-May-20179:07 Comprehensive Metabolic Profil Comments: [facility] [address]v64[address] [place], [address] GAP 9 (Normal) Range: 5-15 CO2 28.0 [...] per A.D.A. criteria. 31-May-20179:07 NMR Lipoprofile Comments: [facility] (refer to report for specific site)refer to [...] the [place] Food and Drug Administration.Performed at: [facility] [address] [place] [id number] Director: Zia Jarvis MD, Phone: [phone] INS RES/DIAB RK . (Normal) LDL SIZE [...] mg/dL (Normal) Range: 100-199 LIPIDS . (Normal) 31-May-20179:07 Vitamin D,25 Hydroxy Comments: [facility] [address] [place], [place], [address] Vitamin D 25-OH 61.8 ng/mL (Normal) Comments: Vitamin D 25(OH) Status Range Deficiency <20 ng/mL (50nmol/L) Insuffciency 20 - 30 ng/mL (50 - 75 nmol/L) Sufficiency 30 - 100 ng/mL (75 - 250 nmol/L) Toxicity >100 ng/mL (>250 nmol/L) :48 Liver Profile Comments: [facility] [address] [place], [place], [address] D BILI 0.14 mg/dL (Normal) Range: 0.00-0.30 T BILI 0.50 mg/dL (Normal) Range: 0.20-1.00 ALT 57 U/L (Normal) Range: 12-78 ALK P 94 U/L (Normal) Range: 45-117 AST 40 U/L (Abnormal) Range: 15-37 GLOB 2.8 g/dL (Normal) Range: 2.3-3.5 ALB 3.9 g/dL (Normal) Range: 3.4-5.0 T PROT 6.7 g/dL (Normal) Range: 6.4-8.2 :45 Potassium Comments: [facility] [address] [place], [address] K 4.3 mmol/L (Normal) Range: 3.5-5.1 :35 CBC W/Diff, Automated Comments: [facility] [address] [place], [place], [address] Absolute Lymph 1.24 {X10_3/ul} (Normal) Range: 0.83-4.51 [...] 4.2-5.4 WBC 3.6 K/mm3 (Abnormal) Range: 4.4-11.0 74-Tqt-69321:35 Comprehensive Metabolic Profil Comments: [facility] [address] [place], [address] GAP 10 (Normal) Range: 5-15 CO2 31.0 [...] ASPIRATION (SLIDES ONLY) See Note (Normal) Comments: [facility] [address] [place], [place], [address] 0 Comments: Patient: IFEOMA ASHRAF : 1965 (52/F) Acct Num: [id number] Phys: Alejandro Luis MD Unit Num: [id number] Loc: LABSPEC Specimen: [id number] Received: 03/18/17 - 112 Spec Ty pe: ASPIRATION TISSUES TISSUES: COMMENT Correlation with clinical, radiologic findings and appropriate follow up are necessary. CYTOLOGY GROSS Received are ten smears labeled wi th the patient's name and designated per the requisition as left thyroid FNA. Submitted for staining. / 03/18/17 TC:5 CPT: 67498 CYTOLOGY STUDY Slides are reviewed. The specimen is adequat e for evaluation. The specimen consists of benign follicular cells and colloid. DIAGNOSIS CYTOLOGY Left thyroid nodule, ultrasound-guided FNA (smears): Consistent with benign colloid nodul e. See cytology study and comment. MICHELLE:garrison 03/21/17 HEADER OPERATION: Ultrasound-guided left thyroid FNA PRE-OP DIAGNOSIS: Left thyroid nodule TISSUE SUBMITTED: Left thyroid FNA Signed Toni Yepez 03/21/17 <signature on file> 01-Mar-20179:30 HEPATITIS C ANTIBODY (08291) Comments: PATIENT NOT FASTINGPERFORMED BY: [facility] Dqugrz7619 [facility] [id number] Hep C Virus Ab <0.1 {s/co_ratio} (Normal) Range: 0.0-0.9 Comments: Negative: < 0.8 Indeterminate: 0.8 - 0.9 Positive: > 0.9 . The CDC recommends that a positive HCV antibody result be followed up with a HCV Nucleic Acid Amplification test (574655). :30 Potassium Serum (92068) Comments: PATIENT NOT FASTINGPERFORMED BY: [facility] Bqyprd3088 [facility] [id number] Potassium, Serum 4.8 mmol/L (Normal) Range: 3.5-5.2 :29 HgA1C , Office (93286) HgA1C , Office 7.9 % (Abnormal) Range: 4.6 - 7.1 :53 CBC W/Diff, Automated Comments: [facility] [id number] [place], [place], [id number] Absolute Lymph 1.57 {X10_3/ul} (Normal) Range: 0.83-4.51 [...] 4.2-5.4 WBC 4.8 K/mm3 (Normal) Range: 4.4-11.0 [id number] Comprehensive Metabolic Profil Comments: [facility] [id number] [place], [address] GAP 11 (Normal) Range: 5-15 CO2 32.0 [...] per A.D.A. criteria. :53 Lipid Profile Comments: [facility] [id number] [place], [id number] VLDL 37 mg/dL (Normal) Range: 5-40 LDL [...] High Risk :53 Microalb:Creat Ratio,Random UR Comments: [facility] Vhcjuhcnvd1582 [place], [address] MALB:CREAT 19.7 {mg/g_CRE} (Normal) MICROALBUMIN,UR 27.8 mg/L (Normal) UR CREAT 141.00 mg/dL (Normal) :53 Thyroid Stim Hormone (TSH) Comments: [facility] Vfofnmmuks8236 [place], [address] TSH 2.39 {uIU/mL} (Normal) Range: 0.358-3.74 :53 Vitamin D,25 Hydroxy Comments: [facility] Xosrnzafqs2594 [place], [address] Vitamin D 25-OH 79.9 ng/mL (Normal) Comments: Vitamin D 25(OH) Status Range Deficiency <20 ng/mL (50nmol/L) Insuffciency 20 - 30 ng/mL (50 - 75 nmol/L) Sufficiency 30 - 100 ng/mL (75 - 250 nmol/L) Toxicity >100 ng/mL (>250 nmol/L) 03-Ibb-595211:08 CBC W/Diff, Automated Comments: [facility] Jqghxkguue9310 [address] [place], [place], [address] Absolute Lymph 2.04 {X10_3/ul} (Normal) Range: 0.83-4.51 [...] 4.2-5.4 WBC 9.0 K/mm3 (Normal) Range: 4.4-11.0 23-Fpg-563749:08 Comprehensive Metabolic Profil Comments: [facility] Apcxlmvphi4461 [address] [place], [place], [address] GAP 9 (Normal) Range: 5-15 CO2 27.0 [...] 126 mg/dLsuggests DIABETES MELLITUS per A.D.A. criteria. 13-Ahl-247601:00 Culture, Urine Comments: [facility] Jlmzobhehc6917 [place], [address] CUUR See Note (Normal) Comments: Urine CultureORGANISM 1: Mixed Gram Positive OrganismsColony Count >100,000MIX CULTURE Mixed contaminants. Submit a new specimen if indicated. 2-Drc-454602:25 CBC W/Diff, Auto - EPLAB Comments: At [facility] Outpatient [facility] Medical Oncologypatients receive CBC w/auto Differential ONLY. Physicianwill place an order for a manual differential or Pathologistreview at his discretion. [facility]. [address] [place] [address] [address] LICENSED PRACTICAL NURSE: MATEO CASTANEDA DO PH:[phone] North Health Center Doaxqqexaa6568 [place], [address] Absolute Lymph 1.42 {X10_3/uL} (Normal) Range: 0.83-4.51 [...] 4.2-5.4 WBC 6.3 K/mm3 (Normal) Range: 4.4-11.0 3-Ffm-042119:25 Comprehensive Metabolic Profil Comments: Order Date: 06/07/16Order Date: 06/07/16erial Specimen #1, #2 or #3? 1[facility] Itgwfcsbjj0870 [address] [place], [place], [address] GAP 11 (Normal) Range: 5-15 CO2 24.0 [...] 200 mg/dLsuggests DIABETES MELLITUS per A.D.A. criteria. 0-Keq-156298:25 LDH 208 U/L (Normal) Comments: Order Date: 06/07/16Order Date: 06/07/16erial Specimen #1, #2 or #3? [address] [place] [address] Rtzvfwqjxr5544 [address] [place], [place], [id number] Range: 84-246 1-Wlp-215134:25 Uric Acid Comments: Order Date: 06/07/16Order Date: 16Serial Specimen #1, #2 or #3? [address] [place] [address] Bcrlpwpfxp7998 [address] [place], [place], [phone] URIC 3.8 mg/dL (Normal) Range: 2.6-6.0 Comments: The drugs N-Acetylcysteine and Metamizole may falsely deressthis assay. 39-Sxw-51901:10 HgA1C , Office (20534) HgA1C , Office 8.0 % (Abnormal) Range: 4.6 - 7.1 :10 Blood Glucose , Office (56489) Blood Glucose , Office 223 (Normal) :24 AFP, Tumor Marker Comments: Is Patient ? [facility] (refer to report for specific site)refer to report for address and phone number AFP TUMOR 2253 8.5 ng/mL (Abnormal) Range: 0.0-8.3 Comments: BioActor ECLIA methodologyPerformed at: [facility] [address] [id number] Director: Omar Hood PhD, Phone: [phone] :24 CBC W/Diff, Automated Comments: [facility] Ocabrejfuc74[address] [place], [place], [address] Absolute Lymph 1.35 {X10_3/ul} (Normal) Range: 0.83-4.51 [...] 4.2-5.4 WBC 4.1 K/mm3 (Abnormal) Range: 4.4-11.0 :24 Comprehensive Metabolic Profil Comments: [facility] Fzsjuuvbpv3361 [address] [place], [place], [phone] GAP 9 (Normal) Range: 5-15 CO2 27.0 [...] 126 mg/dLsuggests DIABETES MELLITUS per A.D.A. criteria. :24 NMR Lipoprofile Comments: [facility] (refer to report [...] the [place] Food and Drug Administration.Performed at: [facility] n[address] [place], [place] [id number] Director: Zia Jarvis MD, Phone: [phone] INS RES/DIAB RK . (Normal) LDL SIZE [...] mg/dL (Normal) Range: 100-199 LIPIDS . (Normal) 20-Mfa-772064:53 CBC W/Diff, Automated Comments: [facility] Dfhbmygdmx3418 [place], [address] Absolute Lymph 1.41 {X10_3/ul} (Normal) Range: 0.83-4.51 [...] 4.2-5.4 WBC 12.2 K/mm3 (Abnormal) Range: 4.4-11.0 57-Jba-361446:53 Comprehensive Metabolic Profil Comments: [facility] Iqejzkpyhh39[address] [place], [place], [address] GAP 13 (Normal) Range: 5-15 CO2 24.0 [...] 200 mg/dLsuggests DIABETES MELLITUS per A.D.A. criteria. :42 CBC W/Diff, Automated Comments: [facility] Uytwojnbej4[address] [place], [place], [address] Absolute Lymph 1.92 {X10_3/ul} (Normal) Range: 0.83-4.51 [...] Range: 4.4-11.0 :42 Comprehensive Metabolic Profil Comments: [facility] Deneckjjhn3612 [address] [place], [place], [address] GAP 11 (Normal) Range: 5-15 CO2 25.0 [...] :55 Magnesium Comments: Order Date: 06/07/16Order Date: 06/07/16[facility] Frynnrbvdb9931 [place], [address] MG 2.0 mg/dL (Normal) Range: 1.8-2.4 :57 CBC W/Diff, Auto - EPLAB Comments: At [facility] Outpatient [facility] Medical Oncologypatients receive CBC w/auto Differential ONLY. Physicianwill place an order for a manual differential or Pathologistreview at his discretion. [facility] OUTPATIENT [facility]. [address] [place] [address] [place] [address] LICENSED PRACTICAL NURSE: MATEO CASTANEDA DO PH:[phone] North Health Center Tkttsgccue4254 [place], [address] Absolute Lymph 1.38 {X10_3/uL} (Normal) Range: 0.83-4.51 [...] Profil Comments: Order Date: 06/07/16OV Order #: [id number] Specimen #1, #2 or #3? 1 [id number] Hextmnmzmv0896 [facility], [address] GAP 13 (Normal) Range: 5-15 CO2 24.0 [...] (Normal) Comments: Order Date: 06/07/16OV Order #: [id number] Specimen #1, #2 or #3? [address] [place] [address] [place], [address] Range: 84-246 :56 Magnesium Comments: Order Date: 06/07/16OV Order #: [id number] Specimen #1, #2 or #3? [address] [place] [address] [place], [address] MG 1.5 mg/dL (Abnormal) Range: 1.8-2.4 :56 Uric Acid Comments: Order Date: 06/07/16 Order #: [id number] Specimen #1, #2 or #3? [address] [place] [address] [place], [address] URIC 4.8 mg/dL (Normal) Range: 2.6-6.0 Comments: The drugs N-Acetylcysteine and Metamizole may falsely deressthis assay. :30 Liver Profile Comments: [facility] Vxjepfwpvm52[address] [place], [address] D BILI 0.13 mg/dL (Normal) Range: 0.00-0.30 T BILI 0.40 mg/dL (Normal) Range: 0.20-1.00 ALT 60 U/L (Normal) Range: 12-78 ALK P 126 U/L (Normal) Range: 50-136 AST 37 U/L (Normal) Range: 15-37 GLOB 2.7 g/dL (Normal) Range: 2.3-3.5 ALB 3.4 g/dL (Normal) Range: 3.4-5.0 T PROT 6.1 g/dL (Abnormal) Range: 6.4-8.2 :33 CBC W/AUTO DIFF WBC Comments: PATIENT NOT FASTINGPERFORMED BY: [facility] Zkhgzd3939 [facility] [id number] Information: NURSE DRAW (52035) Immature Grans (Abs) 0.0 {x10E3/uL} (Normal) Range: [...] PANEL, COMPREHENSIVE Comments: PATIENT NOT FASTINGPERFORMED BY: [facility] HospitalGwlxhu8939 [facility] [id number] (05570) ALT (SGPT) 41 [iU]/L (Abnormal) Range: 0-32 [...] (Abnormal) Range: 65-99 :09 HgA1C , Office (46374) HgA1C , Office 7.0 % (Normal) Range: 4.6 - 7.1 :14 AFP, Tumor Marker Comments: Is Patient ? [facility] (refer to report for specific site)refer to report for address and phone number AFP TUMOR 2253 7.7 ng/mL (Normal) Range: 0.0-8.3 Comments: [employer] ECLIA methodologyPerformed at: [facility] [place] [id number] Director: Omar Hood PhD, Phone: [phone] :14 CBC W/Diff, Automated Comments: [facility] Goyugztrjg[address] [place], [place], [address] ; will review on 05/17 Absolute Lymph [...] Range: 4.4-11.0 :14 Comprehensive Metabolic Profil Comments: [facility] S[address]lozoef[address] [place], [place], [address] GAP 7 (Normal) Range: 5-15 CO2 28.0 [...] per A.D.A. criteria. :14 Lipid Profile Comments: [facility] Awzwqmlahp8411 [address] [place], [address] VLDL 36 mg/dL (Normal) Range: 5-40 LDL [...] High Risk :14 Microalb:Creat Ratio,Random UR Comments: [facility] Gayfuuwmlr9[address] [place], [address] ; will review on 05/17 MALB:CREAT 14.6 {mg/g_CRE} (Normal) MICROALBUMIN,UR 23.4 mg/L (Normal) UR CREAT 160.00 mg/dL (Normal) :14 Thyroid Stim Hormone (TSH) Comments: [facility] Uvsiirarsa37[address] [place], [address] TSH 1.89 {uIU/mL} (Normal) Range: 0.358-3.74 :14 Vitamin D,25 Hydroxy Comments: [facility] Cyoxycdlzw6958 [address] [place], [address] ; will review on 05/17 Vitamin D 25-OH 53.2 ng/mL (Normal) Comments: Vitamin D 25(OH) Status Range Deficiency <20 ng/mL (50nmol/L) Insuffciency 20 - 30 ng/mL (50 - 75 nmol/L) Sufficiency 30 - 100 ng/mL (75 - 250 nmol/L) Toxicity >100 ng/mL (>250 nmol/L) :23 CBC W/Diff, Automated Comments: [facility] [address] [place], [place], [phone] Absolute Lymph 1.65 {X10_3/ul} (Normal) Range: 0.83-4.51 [...] Range: 4.4-11.0 :23 Comprehensive Metabolic Profil Comments: [facility] Nyuskesutj[address] [place], [place], [address] GAP 9 (Normal) Range: 5-15 CO2 30.0 [...] 126 mg/dLsuggests DIABETES MELLITUS per A.D.A. criteria. 36-Lkx-064775:07 HgA1C , Office (29014) HgA1C , Office 8.5 % (Abnormal) Range: 4.6 - 7.1 :15 CBC W/Diff, Automated Comments: [facility] Mizwtwayhh1846 [address] [place], [place], [address] Absolute Lymph 1.76 {X10_3/ul} (Normal) Range: 0.83-4.51 [...] 4.2-5.4 WBC 6.7 K/mm3 (Normal) Range: 4.4-11.0 27-Huj-55275:15 Comprehensive Metabolic Profil Comments: [facility] Eyblgnqmwm2505 [place], [address] GAP 13 (Normal) Range: 5-15 CO2 23.0 [...] 200 mg/dLsuggests DIABETES MELLITUS per A.D.A. criteria. 97-Ins-77656:15 Lipid Profile Comments: [facility] Utyhxrjkzf4240 [facility] [address]. [place], [place], [address] VLDL 45 mg/dL (Abnormal) Range: 5-40 LDL [...] High Risk :15 Vitamin D,25 Hydroxy Comments: [facility] Tlsterscda29[address] [place], [place], [address] Vitamin D 25-OH 28.8 ng/mL (Normal) Comments: Vitamin D 25(OH) Status Range Deficiency <20 ng/mL (50nmol/L) Insuffciency 20 - 30 ng/mL (50 - 75 nmol/L) Sufficiency 30 - 100 ng/mL (75 - 250 nmol/L) Toxicity >100 ng/mL (>250 nmol/L); ADDENDA: non-emergent till apt :35 CBC W/Diff, Automated Comments: [facility] [address]ikahfvnh64[address] [place], [place], [address] Absolute Lymph 1.26 {X10_3/ul} (Normal) Range: 0.83-4.51 [...] Range: 4.4-11.0 :35 Comprehensive Metabolic Profil Comments: [facility] Tpqyffpnqz7[address] [place], [place], [address] GAP 14 (Normal) Range: 5-15 CO2 26.0 [...] 200 mg/dLsuggests DIABETES MELLITUS per A.D.A. criteria. 04-Mhb-49106:0 ASPIRATION (SLIDES ONLY) See Note (Normal) Comments: [facility] Xhbyoitads7[address] [place], [place], [address] 0 Comments: Patient: IFEOMA ASHRAF : 1965 (50/F) Acct Num: [id number] Phys: Janelle KING,Alejandro Unit Num: [id number] Loc: LABSPEC Specimen: [id number] Received: 01/06/16 - 1129 Spec Ty pe: ASPIRATION TISSUES TISSUES: COMMENT Correlation with clinical, radiologic findings and appropriate follow up are necessary. CYTOLOGY GROSS Received are 10 smears labeled wit h the patient's name and designated per the requisition as fine needle aspiration left thyroid. Submitted for staining. 01/06/16 TC:5 CPT:71985 CYTOLOGY STUDY Slides are reviewed. The spe [...] Signed Toni Yepez 01/07/16 <signature on file> 0-Iia-357473:29 CBC W/Diff, Auto - EPLAB Comments: At [facility] Outpatient [facility] Medical Oncologypatients receive CBC w/auto Differential ONLY. Physicianwill place an order for a manual differential or Pathologistreview at his discretion. [facility] OUTPATIENT [facility]. [address] [place] [address] [address] LICENSED PRACTICAL NURSE: MATEO CASTANEDA DO PH:[phone] North Health Center Kjrnvdxixk6522 [address] [place], [place], [address] Absolute Lymph 1.49 {X10_3/uL} (Normal) Range: 0.83-4.51 [...] 4.2-5.4 WBC 4.6 K/mm3 (Normal) Range: 4.4-11.0 2-Gzl-544698:28 Comprehensive Metabolic Profil Comments: Serial Specimen #1, #2 or #3? 1[facility] Dzbawtqkrc6441 [address]. [place], [place], [address] GAP 8 (Normal) Range: 5-15 CO2 26.0 [...] 126 mg/dLsuggests DIABETES MELLITUS per A.D.A. criteria. 8-Eqs-975848:28 LDH 213 U/L (Normal) Comments: Serial Specimen #1, #2 or #3? [address] [place] [address] Yxgtgovoam3216 [place], [address] Range: 84-246 8-Udh-799932:28 Magnesium Comments: Serial Specimen #1, #2 or #3? [address] [place] [address] Nfephfzuin1078 [place], [address] MG 1.6 mg/dL (Abnormal) Range: 1.8-2.4 :28 Uric Acid Comments: Serial Specimen #1, #2 or #3? [address] [place] [address] Lxbntmrwrl1970 [place], [address] URIC 4.8 mg/dL (Normal) Range: 2.6-6.0 26-Nov-20159:36 Miscellaneous Lab Procedure Comments: Comments: [id number] URINE TOX,RUN LOWEST TESTTest(s) Ordered: [id number] URINE TOX,RUN LOWEST TESTSamaritan [facility] Health Center Glzkvmxwxz5652 [address] [place], [phone](619) MISC Comments: [id number] 6+OXYCODONE-BUND (ng/mL)DRUG RESULT SCREEN CUTOFF____ Amphetamines,Urine Negat LAB (Normal) scott ng/mL 1000Amphetamine test includes Amphetamine and Methamphetamine.Barbiturates Negative ng/mL 200Benzodiazepines Negative ng/mL 200Cannabinoid TEST Negative ng/mL 20Cocaine (Metab) Negative ng/mL 300Opiates Positive ng/mL 300 Opiates test includes Codeine, Morphine, Hydromorphone, [place] codone.Please Note:Confirmation performed by Mass SpectrometryCodeine NegativeMorphine NegativeHydromorphone NegativeHydrocodone Positive Hydrocodone Confirm 1950 ng/mL 300Oxycodone/Oxymorphone,Urine Negative ng/mL 300 Test includes Oxydodone and Oxymorphone. TESTI NG PERFORMED AT [facility]. ORIGINAL REPORT ON FILE IN LAB CONTAINS ADDITIONAL TEST SITE INFORMATION. :36 Urine Drug Screen (VISTA) Comments: Comments: [id number] URINE TOX,RUN LOWEST TESTList of Drugs Taken or Suspected? [facility] Ikzwgtrspy5499 [place], [place], [id number] ; ordered by Basali THC NEGATIVE (Normal) [...] TESTING MUST BE ORDERED SEPARATELY. USE TESTMNEMONIC: NMCA 66-Jnx-906946:20 HgA1C , Office (31556) HgA1C , Office 7.3 % (Abnormal) Range: 4.6 - 7.1 :13 AFP, Tumor Marker Comments: Is Patient ? [facility] (refer to report for specific site)refer to report for address and phone number AFP TUMOR 2253 6.4 ng/mL (Normal) Range: 0.0-8.3 Comments: BioActor ECLIA methodologyPerformed at: [facility] [address] [id number] Director: Omar Hood PhD, Phone: [phone] :[phone] CBC W/Diff, Automated Comments: [facility] Dbiuxzumoz7397 [place], [address] Absolute Lymph 1.59 {X10_3/ul} (Normal) [...] 4.2-5.4 WBC 5.3 K/mm3 (Normal) Range: 4.4-11.0 :13 Comprehensive Metabolic Profil Comments: [facility] Pqwsfnnsri76[address] [place], [place], [address] GAP 10 (Normal) Range: 5-15 CO2 24.0 [...] 126 mg/dLsuggests DIABETES MELLITUS per A.D.A. criteria. 93-Acx-64935:13 Lipid Profile Comments: [facility] Dmxsakovxb6479 [address] [place], [place], [address] ; non-emergent and pt has a f/u [...] High Risk :13 Microalb:Creat Ratio,Random UR Comments: [facility] Qpbznpbxxj2324 [place], [address] MALB:CREAT 17.0 {mg/g_CRE} (Normal) MICROALBUMIN,UR 43.7 mg/L (Normal) UR CREAT 257.00 mg/dL (Normal) :13 Thyroid Stim Hormone (TSH) Comments: [facility] Ktmdzhdzqp8459 [place], [address] TSH 1.82 {uIU/mL} (Normal) Range: 0.358-3.74 :13 Vitamin D,25 Hydroxy Comments: [facility] Qoakhajryw9392 [place], [address] ; will review at 11/10 appt Vitamin D 25-OH 39.8 ng/mL (Normal) Comments: Vitamin D 25(OH) Status Range Deficiency <20 ng/mL (50nmol/L) Insuffciency 20 - 30 ng/mL (50 - 75 nmol/L) Sufficiency 30 - 100 ng/mL (75 - 250 nmol/L) Toxicity >100 ng/mL (>250 nmol/L) :40 CBC W/Diff, Automated Comments: [facility] Trqzcwztfp2242 [place], [address] Absolute Lymph 1.47 {X10_3/ul} (Normal) Range: [...] 4.2-5.4 WBC 4.7 K/mm3 (Normal) Range: 4.4-11.0 89-Zpm-65409:40 Comprehensive Metabolic Profil Comments: [facility] Lnyxxfytbq9033 [address] [place], [place], [address] GAP 13 (Normal) Range: 5-15 CO2 24.0 [...] per A.D.A. criteria. :49 HgA1C , Office (68251) HgA1C , Office 7.8 % (Abnormal) Range: 4.6 - 7.1 :09 CBC W/Diff, Automated Comments: [facility] Lrhyquyjuy4[address] [place], [place], [address] Absolute Lymph 1.07 {X10_3/ul} (Normal) Range: 0.83-4.51 [...] 4.2-5.4 WBC 5.3 K/mm3 (Normal) Range: 4.4-11.0 01-Qxv-697262:09 Comprehensive Metabolic Profil Comments: [facility] Tnlllarwnf37[address] [place], [place], [address] GAP 7 (Normal) Range: 5-15 CO2 28.0 [...] 200 mg/dLsuggests DIABETES MELLITUS per A.D.A. criteria. 3-Cbs-325705:42 CBC W/Diff, Automated Comments: At [facility] Outpatient [facility] Medical Oncologypatients receive CBC w/auto Differential ONLY. Physicianwill place an order for a manual differential or Pathologistreview at his discretion. [facility]. [address] [place] [address] [place] [address] LICENSED PRACTICAL NURSE: MATEO CASTANEDA DO PH:[phone] performed at:[facility] Laborato dz[address] [place], [place] [address] Absolute Lymph 1.60 {X10_3/ul} (Normal) Range: 0.83-4.51 [...] 4.2-5.4 WBC 7.0 K/mm3 (Normal) Range: 4.4-11.0 3-Ybf-484825:42 Comprehensive Metabolic Profil Comments: Serial Specimen #1, #2 or #3? 1Test performed at:[facility] Kzpxwdpwbi73[address] [place], [place] [address] GAP 9 (Normal) Range: 5-15 CO2 25.0 [...] Comments: Please note revised CREATININE reference range opdkmcznj22/22/2015. BUN 20 mg/dL (Abnormal) Range: 7-18 GLU 118 mg/dL (Abnormal) Range: 70-110 Comments: Fasting Glucose result from 110 to <126 mg/dLsuggests IMPAIRED HOMEOSTASIS per A.D.A. criteria. 9-Zvv-351463:42 LDH 133 U/L (Normal) Comments: Serial Specimen #1, #2 or #3? 1Test performed at:[facility] Xazmehilkb0[address] [place] [address] Range: 84-246 1-Hgm-678788:42 Uric Acid Comments: Serial Specimen #1, #2 or #3? 1Test performed at:[facility] Ibpsqjwziu3023 [place] [address] URIC 4.6 mg/dL (Normal) Range: 2.6-6.0 5-Zan-617933:02 CBC W/Diff, Automated Comments: Test performed at:[facility] Zclqbfkskv4149 [facility] [place] [address] ; handled by vicki Absolute Lymph 1.23 [...] 4.2-5.4 WBC 4.1 K/mm3 (Abnormal) Range: 4.4-11.0 3-Mde-555753:02 Comprehensive Metabolic Profil Comments: Test performed at:[facility] Nopqafjucc2704 [place] [address] GAP 12 (Normal) Range: 5-15 CO2 23.0 [...] Comments: Please note revised CREATININE reference range rsouwfnvl42/22/2015. BUN 11 mg/dL (Normal) Range: 7-18 GLU 214 mg/dL (Abnormal) Range: 70-110 Comments: Glucose result greater than or equal to 200 mg/dLsuggests DIABETES MELLITUS per A.D.A. criteria. 79-Qfo-615466:49 VITAMIN B-12 (CYANOCOBALAMIN) Comments: PATIENT NOT FASTINGPERFORMED BY: [facility] Djsutg7030 [facility] [id number] ([id number]) Vitamin B12 464 pg/mL (Normal) Range: 211-946 :49 Vitamin D Hydroxy (07841) Comments: PATIENT NOT FASTINGPERFORMED BY: [facility] HospitalDidggi5533 [facility] [id number] Vitamin D, 25-Hydroxy 11.5 ng/mL (Abnormal) Range: 30.0-100.0 Comments: Vitamin D deficiency has been defined by the [place] of[place] and an Endocrine Society practice guideline as alevel of serum 25-OH vitamin D less than 20 ng/mL (1,2).The Endocrine Society went on to further define vitamin Dinsufficiency as a level between 21 and 29 ng/mL (2).1. IOM ([place] [employer]). 2010. Dietary reference intakes for calcium and D. [place]: The National Academies Press.2. Sami MF, Sophie MOORE, Xiomara LARES, et al. Evaluation, treatment, and prevention of vitamin D deficiency: an Endocrine Society clinical practice guideline. JCEM. 2010; 96(7):1911-30. :49 CBC W/AUTO DIFF WBC Comments: PATIENT NOT FASTINGPERFORMED BY: [facility] Ubsoaf1677 [facility] [id number] Information: [id number] (53163) Immature Grans (Abs) 0.0 {x10E3/uL} (Normal) Range: [...] 3.77-5.28 WBC 6.1 {x10E3/uL} (Normal) Range: 3.4-10.8 13-Jnr-513354:28 URINE GENESIS CULTURE-NITA COL Comments: PATIENT NOT FASTINGPERFORMED BY: REINALDO [facility] Cgxuam6163 [facility] [id number] Information: SRC:URC [id number] COUNT (99829) Antimicrobial MIHEAD (Normal) Comments: S = Susceptible; [...] Imipenem Meropenem Urine Final report (Abnormal) Culture,Comprehensive 82-Yla-695472:24 Urinalysis, Office (85715) UA - LEUKOCYTE ESTERASE Trace (Normal) UA - NITRITE Negative (Normal) URINE UROBILINGN NITA TIMED Normal mg/dL (Normal) UA - PROTEIN 30 mg/dL (Normal) UA - PH 6 (Abnormal) UA - BLOOD Negative (Normal) UA - SPECIFIC GRAVITY 1.030 (Abnormal) UA - KETONES Moderate mg/dL (Normal) UA - BILIRUBIN Small (Normal) UA - GLUCOSE Negative (Normal) 01-Apr-20157:54 Bedside Glucose Comments: Test performed at:[facility] Mvvpdzmyar3144 [place] [address] BEDSIDE GLU 129 mg/dL (Abnormal) Range: 70-110 Comments: MANAGEMENT OF PATIENT CARE PER NURSING PROTOCOL 31-Mar-20159:47 Urinalysis, Office (82876) UA - LEUKOCYTE ESTERASE Trace (Normal) UA - NITRITE Negative (Normal) URINE UROBILINGN NITA TIMED 2 mg/dL (Normal) UA - PROTEIN 300 mg/dL (Normal) UA - PH 6.0 (Normal) UA - BLOOD Hemolyzed Large (Normal) UA - SPECIFIC GRAVITY 1.030 (Abnormal) UA - KETONES 15 mg/dL (Abnormal) UA - BILIRUBIN Moderate (Normal) UA - GLUCOSE Negative (Normal) 51-Dgd-096990:57 Basic Metabolic Profile (BMP) Comments: Test performed at:[facility] [address] [place] [address] GAP 11 (Normal) Range: 5-15 CO2 27.0 [...] 126 mg/dLsuggests DIABETES MELLITUS per A.D.A. criteria. 52-Vfn-[id number]:57 Digoxin Level Comments: Test performed at:[facility] [address] [place] [address] DIG 1.17 ng/mL (Normal) Range: 0.80-2.00 90-Kww-224973:57 Hemoglobin A1c Comments: Test performed at:[facility] [address] [place] [address] HGB A1C 7.0 % (Abnormal) Range: 4.2-6.3 06-Szt-417519:57 Thyroid Stim Hormone (TSH) Comments: Test performed at:[facility] [address] [place] [address] TSH 0.89 {uIU/mL} (Normal) Range: 0.358-3.74 6-Fyf-394801:17 Urine Culture,Comprehensive Comments: PATIENT NOT FASTINGPERFORMED BY: [facility]St[facility] Hospital[facility] [id number] Information: [place] [id number] 1 BETAGB (Abnormal) Comments: Beta hemolytic [...] 02/28/15How was Urine Obtained? CLEAN CATCHTest performed at:[facility] [address] [place] [address] AMORPHOUS 1+ URATE (Normal) MUCUS, [...] :55 CBC W/Diff, Automated Comments: Test performed at:[facility] [address] P[address] [place] [address] Absolute Lymph 1.29 {X10_3/ul} (Normal) Range: 0.83-4.51 [...] :55 Comprehensive Metabolic Profil Comments: Test performed at:[facility] Hlxwuhekie7[address] [facility]. [place], [place] [address] GAP 10 (Normal) Range: 5-15 CO2 26.0 [...] A.D.A. criteria. :55 Lipase Comments: Test performed at:[facility] Mijvvkzcmv5475 [facility] [place] [address] LIPASE 142 U/L (Normal) Range: 70-290 9-Rgy-728150:40 HgA1C , Office (76884) HgA1C , Office 7.4 % (Abnormal) Range: 4.6 - 7.1 63-Dsf-076199:03 CBC W/Diff, Automated Comments: Test performed at:[facility] Cczekgbrfv9[address] [facility] [place] [address] Absolute Lymph 1.31 {X10_3/ul} (Normal) Range: 0.83-4.51 [...] 4.2-5.4 WBC 5.1 K/mm3 (Normal) Range: 4.4-11.0 30-Rpn-273854:03 Comprehensive Metabolic Profil Comments: Test performed at:[facility] P[address] [place] [address] GAP 11 (Normal) Range: 5-15 CO2 26.0 [...] 126 mg/dLsuggests DIABETES MELLITUS per A.D.A. criteria. 13-Mvk-545790:00 Culture, Urine Comments: Test performed at:[facility] [address] [place] [address] CUUR See Note (Normal) Comments: Urine CultureORGANISM 1: Streptococcus agalactiae (B)[place] Count 1000-10,000 Streptococcus agalactiae (B): REACTION Ampicillin $ <=0.25 S Benzylpenicillin NF <=0.06 S Ceftriaxone (other dx) $ <=0.12 S Inducable Clindamycin Resistan - Linezolid $$$$ <=2 S Vancomycin $ 0.5 S(NF) indicates non-formulary drug at [facility]. Approval by Infectious Disease Specialist required before non-formulary drugs may be ordered and/or dispensed. * CLSI guidelines does not recommend testing of cephalosporins. This interpretation is deduced from Beta-lactam/penicillin results.; ADDENDA: handled by edvin :32 CBC W/Diff, Auto - EPLAB Only Comments: At [facility], [facility] patientsreceive CBC w/auto Differential ONLY. Physician will placean order for a manual differential or Pathologist review athis discretion. [facility]. [address] [place] [address] [address] LICENSED PRACTICAL NURSE: MATEO CASTANEDA DO PH:[phone] performed at:[facility] [address]pr[address] [place], [place] [id number] ; Richie Absolute Neut 2.7 {X10_3/uL} (Normal) [...] Specimen #1, #2 or #3? 1Test performed at:[facility] [address]plezy[address] [place] [address] Range: 87-241 Comments: ADDENDA: richie :34 TSH (35140) Comments: PATIENT WAS FASTINGPERFORMED BY: [facility]6[address] [facility] [id number] TSH 1.240 {uIU/mL} (Normal) Range: 0.450-4.500 :34 LIPID PANEL (12498) Comments: PATIENT WAS FASTINGPERFORMED BY: [facility]6[address] [facility] [id number] LDL/HDL Ratio 2.6 {ratio_units} (Normal) Range: 0.0-3.2 [...] CREATININE RATIO Comments: PATIENT WAS FASTINGPERFORMED BY: [facility] [id number]; non- emergent till apt tomorrow (34886) AND (30863) Microalb/Creat Ratio 14.8 {mg/g_creat} (Normal) Range: 0.0-30.0 Microalbumin, Urine 44.5 ug/mL (Abnormal) Range: 0.0-17.0 Creatinine, Urine 301.0 mg/dL (Abnormal) Range: 15.0-278.0 :34 METABOLIC PANEL, Comments: PATIENT WAS FASTINGPERFORMED BY: [facility] [id number] Information: [id number] COMPREHENSIVE (80816) ALT (SGPT) 21 [iU]/L (Normal) Range: 0-32 [...] Glucose, Serum 161 mg/dL (Abnormal) Range: 65-99 2-Mmq-998022:10 HgA1C , Office (61495) HgA1C , Office 7.2 % (Abnormal) Range: 4.6 - 7.1 :47 CBC W/Diff, Automated Comments: Test performed at:[facility] [address] [place], [place] [address] ; Handled by Vicki Absolute Lymph 1.43 [...] 4.2-5.4 WBC 5.4 K/mm3 (Normal) Range: 4.4-11.0 90-Dfk-331993:47 Comprehensive Metabolic Profil Comments: Test performed at:[facility] [address]wu[address] [place] [address] GAP 6 (Normal) Range: 5-15 CO2 30.0 [...] Microscopic Examination Comments: PATIENT NOT FASTINGPERFORMED BY: [facility] Guof[facility] Medical TechnologySt. Joseph's Wayne HospitalFllnzx1682 [facility] [id number] Bacteria Few (Normal) Mucus Threads Present (Normal) Epithelial Cells (non renal) 0-10 {/hpf} (Normal) Range: 0 - 10 RBC 0-2 {/hpf} (Normal) Range: 0 - 2 WBC >30 {/hpf} (Abnormal) Range: 0 - 5 :01 Urinalysis, Routine Comments: PATIENT NOT FASTINGPERFORMED BY: LabCoSt. Joseph's Wayne HospitalBlcxjx2210 [facility] [id number] Microscopic Examination See below: (Normal) Comments: Microscopic was indicated and was performed. Nitrite, Urine Negative (Normal) Urobilinogen,Semi-Qn 0.2 mg/dL (Normal) Range: 0.0-1.9 Bilirubin Negative (Normal) Occult Blood Negative (Normal) Ketones Trace (Abnormal) Glucose Negative (Normal) Protein 1+ (Abnormal) WBC Esterase 3+ (Abnormal) Appearance Turbid (Abnormal) Urine-Color Yellow (Normal) pH 6.0 (Normal) Range: 5.0-7.5 Specific Keldron 1.030 (Normal) Range: 1.005-1.030 48-Jwu-652501:18 CBCD ALC 1.30 {X10_3/ul} (Normal) Range: 0.83-4.51 [...] 4.2-5.4 WBC 4.5 K/mm3 (Normal) Range: 4.4-11.0 08-Ias-511650:18 CMP GAP 7 (Normal) Range: 5-15 CO2 [...] mg/dLsuggests DIABETES MELLITUS per A.D.A. criteria. :01 [id number] (97876) Comments: PATIENT NOT FASTINGPERFORMED BY: [facility] [place] [address] [id number] AFP, Serum, Tumor Marker 7.1 ng/mL (Normal) Range: 0.0-8.3 Comments: Khanh ECLIA methodology :01 PTT (Activated Partial Comments: PATIENT NOT FASTINGPERFORMED BY: [facility] [place] [address] [id number] Thromboplastin Time) (35673) aPTT 25 {sec} (Normal) Range: 24-33 Comments: This test has not been validated for monitoring unfractionated heparintherapy. aPTT-based therapeutic ranges for unfractionated heparintherapy have not been established. For general guidelines onHeparin monitoring, refer to the [facility] Directory of Services. :01 PT (Prothrobim Time) (57309) Comments: PATIENT NOT FASTINGPERFORMED BY: [place] [address]60[address] [facility] [id number] Prothrombin Time 10.4 {sec} (Normal) Range: 9.1-12.0 INR 1.0 (Normal) Range: 0.8-1.2 Comments: Reference interval is for non-anticoagulated patients. . Suggested INR therapeutic range for Vitamin K anta gonist therapy: Standard Dose (moderate intensity therapeutic range): 2.0 - 3.0 Higher intensity therapeutic range 2.5 - 3.5 :01 TSH (22269) Comments: PATIENT NOT FASTINGPERFORMED BY: [facility]6[address] [facility] [id number] TSH 1.450 {uIU/mL} (Normal) Range: 0.450-4.500 :01 CBC W/AUTO DIFF WBC Comments: PATIENT NOT FASTINGPERFORMED BY: [facility] [id number] Information: [id number] (39285) Immature Grans (Abs) 0.0 {x10E3/uL} (Normal) Range: [...] CREATININE RATIO Comments: PATIENT NOT FASTINGPERFORMED BY: [facility]6370 [facility] [id number] (29231) AND (22981) Microalb/Creat Ratio 26.4 {mg/g_creat} (Normal) Range: 0.0-30.0 Microalbumin, Urine 96.0 ug/mL (Abnormal) Range: 0.0-17.0 Creatinine, Urine 364.2 mg/dL (Abnormal) Range: 15.0-278.0 :01 METABOLIC PANEL, COMPREHENSIVE Comments: PATIENT NOT FASTINGPERFORMED BY: [facility] Guof[facility] Medical TechnologySt. Joseph's Wayne HospitalPnrgrb5854 [facility] [id number] (99417) ALT (SGPT) 19 [iU]/L (Normal) Range: 0-32 [...] mg/dL (Abnormal) Range: 65-99 :01 LIPID PANEL (46622) Comments: PATIENT NOT FASTINGPERFORMED BY: LabCoSt. Joseph's Wayne HospitalRzdkrc2555 [facility] [id number] LDL/HDL Ratio 2.1 {ratio_units} (Normal) Range: 0.0-3.2 [...] (Normal) Range: 100-199 :19 HgA1C , Office (90769) HgA1C , Office 6.3 % (Normal) Range: [...] 4.2-5.4 WBC 5.3 K/mm3 (Normal) Range: 4.4-11.0 5-Ikn-440876:07 CBCD ALC 1.71 {X10_3/ul} (Normal) Range: 0.83-4.51 [...] 4.2-5.4 WBC 7.0 K/mm3 (Normal) Range: 4.4-11.0 4-Wxd-410453:07 CMP GAP 7 (Normal) Range: 5-15 CO2 [...] 7-18 GLU 102 mg/dL (Normal) Range: 70-110 10-Map-90900:59 Anaerobic & Aerobic Comments: PATIENT NOT FASTINGPERFORMED BY: REINALDO [facility] Pyaobg6038 [facility] [id number] Information: SRC:EMIL [id number] RIGHT EYE Culture (50414) Antimicrobial MIHEAD (Normal) Comments: S = Susceptible; [...] hours. Anaerobic Culture Final report (Normal) :57 [id number] (25605) Comments: PATIENT WAS FASTINGPERFORMED BY: [address] [id number] AFP, Serum, Tumor Marker 9.2 ng/mL (Abnormal) Range: 0.0-8.3 Comments: Khanh ECLIA methodology :57 PTT (Activated Partial Comments: PATIENT WAS FASTINGPERFORMED BY: [facility]6[address] [facility] [id number] Thromboplastin Time) (81594) aPTT 26 {sec} (Normal) Range: 24-33 Comments: This test has not been validated for monitoring unfractionated heparintherapy. aPTT-based therapeutic ranges for unfractionated heparintherapy have not been established. For general guidelines onHeparin monitoring, refer to the [facility] Directory of Services. :57 PT (Prothrobim Time) (80414) Comments: PATIENT WAS FASTINGPERFORMED BY: [address] [place] [id number] Prothrombin Time 10.5 {sec} (Normal) Range: 9.1-12.0 INR 1.0 (Normal) Range: 0.8-1.2 Comments: Reference interval is for non-anticoagulated patients. . Suggested INR therapeutic range for Vitamin K anta gonist therapy: Standard Dose (moderate intensity therapeutic range): 2.0 - 3.0 Higher intensity therapeutic range 2.5 - 3.5 :57 TSH (18291) Comments: PATIENT WAS FASTINGPERFORMED BY: [facility]6370 [facility] [id number] TSH 3.200 {uIU/mL} (Normal) Range: 0.450-4.500 :57 CBC WITH MANUAL DIFF Comments: PATIENT WAS FASTINGPERFORMED BY: [facility]6370 [facility] [id number] Information: [id number] (93104) Immature Grans (Abs) 0.0 {x10E3/uL} (Normal) Range: [...] PANEL, COMPREHENSIVE Comments: PATIENT WAS FASTINGPERFORMED BY: LabCoSt. Joseph's Wayne HospitalNsmexe6297 [facility] [id number] (64804) ALT (SGPT) 15 [iU]/L (Normal) Range: 0-32 [...] (Abnormal) Range: 65-99 :29 HgA1C , Office (03621) HgA1C , Office 5.4 % (Normal) Range: [...] 7-18 GLU 76 mg/dL (Normal) Range: 70-110 :50 LIPID LDL 82 mg/dL (Normal) Range: 0-130 [...] CHOL 150 mg/dL (Normal) Comments: <200 mg/dL Rylvvxovm981-069 mg/dL Borderline>240 mg/dL High Risk :50 HgA1C , Office (38846) HgA1C , Office 5.8 % (Normal) Range: [...] [facility]. Approximately 10% of breast cancers are not detected by mammography. Anormal mammogram should not delay biopsy of a clinically suspiciousabnormality. Signed:Prashant Delgadillo M.D.[facility] 2012 at 9:19:01 AM [id number] Signed GP/GP If you are the referring physician and would like to consult with theradiologist who provided this interpretation, please herbie Bonilla M.D. at [phone]. If this radiologist is unavailable, youwill be directed to another radiologist to assist. If you are a patient with a question regarding this report, pleaseco ntactyour referring physician directly. Professional Interpretation Provided By: Bodannyhugo, Phone , These documents contain legally protected [...] on 06/15/13920 Sign by: Prashant Delgadillo MD 96-Ubz-44602:27 THYROID Radiology Report See Note Comments: STUDY: [...] Delgadillo M.D.June 15, 2013 at 2:56:26 PM [id number] 8Electronically Signed GP/GP If you are the referring physician and would like to consult with theradiologist who provided this interpretation, please contact Sarmad Bonilla at [phone]. If this radiologist is unavailable, youwill be directed to another radiologist to assist. If you are a patient with a question regarding this report, pleasecontactyour referring physician directly. Profes sional Interpretation Provided By: Impressto, Phone , These documents contain legally protected [...] 06/15/13 1733 Sign by: Prashant Delgadillo MD 3-Oms-088156:18 URINE GENESIS CULTURE-NITA COL Comments: PATIENT NOT FASTINGPERFORMED BY: [facility] Hfpgrt3770 [facility] [id number] Information: SRC:INGRID [id number] COUNT (31355) Antimicrobial MIHEAD (Normal) Comments: S = Susceptible; [...] primarily for treating urinary tract infections. (CLSI, P535-P84,2009) Urine Culture,Comprehensive Final report (Normal) :48 Urinalysis, Office (14085) UA - LEUKOCYTE ESTERASE Large (Normal) UA - NITRITE Positive (Normal) URINE UROBILINGN NITA TIMED 2 mg/dL (Normal) UA - PROTEIN Negative mg/dL (Normal) UA - BLOOD Negative (Normal) UA - KETONES Moderate mg/dL (Normal) UA - BILIRUBIN Moderate (Normal) UA - GLUCOSE Small mg/dL (Normal) 82-Otg-72082:06 MICROALBUMIN: CREATININE RATIO Comments: PATIENT WAS FASTINGPERFORMED BY: [facility]6370 [facility] [id number] (23682) AND (74472) Microalb/Creat Ratio 27.4 {mg/g_creat} (Normal) Range: 0.0-30.0 Microalbumin, Urine 85.2 ug/mL (Abnormal) Range: 0.0-17.0 Creatinine, Urine 311.1 mg/dL (Abnormal) Range: 15.0-278.0 :06 METABOLIC PANEL, Comments: PATIENT WAS FASTINGPERFORMED BY: Ruth [facility] [employer] [facility] [employer]70 [facility] [id number] Information: ADD [id number] AND DRAW FEE 99 3928 COMPREHENSIVE (44786) ALT (SGPT) 29 [iU]/L (Normal) Range: 0-32 [...] Glucose, Serum 76 mg/dL (Normal) Range: 65-99 58-Rqv-36875:06 TSH (68359) Comments: PATIENT WAS FASTINGPERFORMED BY: CB [facility] Iblsvz6897 [facility] [id number] TSH 3.040 {uIU/mL} (Normal) Range: 0.450-4.500 :06 LIPID PANEL (61934) Comments: PATIENT WAS FASTINGPERFORMED BY: [address] [id number] LDL/HDL Ratio 2.4 {ratio_units} (Normal) Range: 0.0-3.2 HDL Cholesterol 55 mg/dL (Normal) Comments: According to ATP-III Guidelines, HDL-C >59 mg/dL is considered anegative risk factor for CHD. LDL Cholesterol Calc 134 mg/dL (Abnormal) Range: 0-99 VLDL Cholesterol Ramandeep 18 mg/dL (Normal) Range: 5-40 Cholesterol, Total 207 mg/dL (Abnormal) Range: 100-199 Triglycerides 89 mg/dL (Normal) Range: 0-149 :06 TENXA-JDLARVQXDXV-EQWEU (09875) Comments: PATIENT WAS FASTINGPERFORMED BY: [address] [id number] AFP, Serum, Tumor Marker 5.4 ng/mL (Normal) Range: 0.0-8.3 Comments: Khanh ECLIA methodology :06 PTT (Activated Partial Comments: PATIENT WAS FASTINGPERFORMED BY: [address] [id number] Thromboplastin Time) (61599) aPTT 27 {sec} (Normal) Range: 24-33 Comments: This test has not been validated for monitoring unfractionated heparintherapy. aPTT-based therapeutic ranges for unfractionated heparintherapy have not been established. For general guidelines onHeparin monitoring, refer to the [facility] Directory of Services. :06 PT (Prothrobim Time) (60761) Comments: PATIENT WAS FASTINGPERFORMED BY: [place] 3546070 [facility] [id number] INR 1.1 (Normal) Range: 0.8-1.2 Comments: Reference interval is for non-anticoagulated patients. . Suggested INR therapeutic range for Vitamin K anta gonist therapy: Standard Dose (moderate intensity therapeutic range): 2.0 - 3.0 Higher intensity therapeutic range 2.5 - 3.5 Prothrombin Time 11.0 {sec} (Normal) Range: 9.1-12.0 :51 HgA1C , Office (22119) HgA1C , Office 5.0 % (Normal) Range: [...] mg/dL (Normal) Range: 70-110 :03 Rapid Flu (27529 x 2) Influenza A Ag positive b (Normal) :27 METABOLIC PANEL, COMPREHENSIVE Comments: PATIENT WAS FASTINGPERFORMED BY: LabCoSt. [facility] HospitalEjzspt2509 [facility] [id number] (01151) ALT (SGPT) 25 [iU]/L (Normal) Range: 0-32 [...] mg/dL (Normal) Range: 65-99 :27 LIPID PANEL (95058) Comments: PATIENT WAS FASTINGPERFORMED BY: [facility] [id number] LDL/HDL Ratio 0.9 {ratio_units} (Normal) Range: 0.0-3.2 LDL Cholesterol Calc 29 mg/dL (Normal) Range: 0-99 VLDL Cholesterol Ramandeep 17 mg/dL (Normal) Range: 5-40 HDL Cholesterol 32 mg/dL (Abnormal) Comments: According to ATP-III Guidelines, HDL-C >59 mg/dL is considered anegative risk factor for CHD. Cholesterol, Total 78 mg/dL (Abnormal) Range: 100-199 Triglycerides 84 mg/dL (Normal) Range: 0-149 :27 TSH (84363) Comments: PATIENT WAS FASTINGPERFORMED BY: GainspeedSt. Joseph's Wayne HospitalCtvurc6590 [facility] [id number] TSH 3.990 {uIU/mL} (Normal) Range: 0.450-4.500 :27 CBC WITH MANUAL DIFF Comments: PATIENT WAS FASTINGPERFORMED BY: GainspeedSt. Joseph's Wayne HospitalWihyiq7958 [facility] [id number] Information: [id number] (63547) Immature Grans (Abs) 0.0 {x10E3/uL} Range: 0.0-0.1 [...] 0.0-8.3 9:39 Comments: Khanh ECLIA methodologyPerformed at: - [facility] [address] [id number] Director: Manuelito Mendez PhD, Phone: [phone] 47-Eyp-67051:39 CBCMD ANC 2.4 3/uL (Normal) Range: 2.0-7.7 [...] CHOL 130 mg/dL (Normal) Comments: <200 mg/dL Wqyyxztwo482-545 mg/dL Borderline>240 mg/dL High Risk :39 MIACRE tMICROCREAT 16.5 {mg/g_CRE} (Normal) MIALB 23.3 mg/L (Normal) CREU 141.0 mg/dL (Normal) :39 PT INR 1.1 (Normal) PTP 13.6 s (Normal) Range: 11.9-14.4 :39 PTT PTTP 29.5 s (Normal) Range: 24.1-36.2 :17 Rapid Flu (50691 x 2) Influenza A Ag neg (Normal) :29 HgA1C , Office (23469) HgA1C , Office 5.9 % (Normal) Range: 4.6 - 7.1 :53 FT3 2.9 pg/mL (Normal) Range: 2.18-3.98 :53 T4F 1.26 ng/dL (Normal) Range: 0.76-1.46 :53 TPO 8 {IU/mL} (Normal) Range: 0-34 Comments: Performed at: [address], [place], [place] [id number] Director: Codi Robles MD, Phone: [phone] 68-Ksj-606394:53 TSH 1.23 {uIU/mL} (Normal) Range: 0.358-3.74 :04 HgA1C , Office (16931) HgA1C , Office 5.8 % (Normal) Range: 4.6 - 7.1 :26 CBCMD Comments: ORDERED TSH LIPID CMP CBCMD [facility] ORDERED VITD CMP CBCD RBCM NORM C+C [...] CMP Comments: ORDERED TSH LIPID CMP CBCMD [facility] ORDERED VITD CMP CBCD GAP 8 (Normal) [...] :26 LIPID Comments: ORDERED TSH LIPID CMP [facility] ORDERED VITD CMP CBCD VLDL 21 mg/dL [...] {uIU/mL} (Normal) Comments: ORDERED TSH LIPID CMP [facility] EN[facility] ORDERED VITD CMP CBCD Range: 0.358-3.74 :26 VITD 44.8 ng/mL (Normal) Comments: ORDERED TSH LIPID CMP [facility]JO[facility] EN[facility] ORDERED VITD CMP CBCD Range: 30.0-100.0 Comments: Vitamin D deficiency has been defined by the [place] of[place]icine and an Endocrine Society practice guideline as alevel of serum 25-OH vitamin D less than 20 ng/mL (1,2).The Endocrine Society went on to further define vitamin Dinsufficiency as a level between 21 and 29 ng/mL (2).1. IOM ([place] of [employer]). 2010. Dietary reference intakes for calcium and D. [place]: The National Academies Press.2. Sami MF, Sophie MOORE, Xiomara LARES, et al. Evaluation, treatment, and prevention of vitamin D deficiency: an Endocrine Society clinical practice guideline. JCEM. 2010; 96(7): 1911-30.Performed at: [address] [id number] Director: Codi Robles MD, Phone: [phone] 27-Jan-20128:02 BILAT SCRN DIGITAL & CAD Radiology [...] Signed GP/GP Professional Interpretat ion Provided By: Smart VoicemailMedStar [facility] RadiologyThe [facility], , To consult with a radiologist regarding this report, please call our [id number] line @ Dicta dani on 01/27/12 0813 by Faustina KING,ArnaldorieleTranscribed on 01/27/12 0950 by ITS IMPORTSign by Faustina KING,Prashant on 01/27/12 0951 Sign by: Prashant Delgadillo MD 93-Bbh-437282:24 HgA1C , Office (89242) HgA1C , Office 5.7 % (Normal) Range: 4.6 - 7.1 37-Yek-994182:24 Blood Glucose , Office (45479) Blood Glucose , Office 89 (Normal) 65-Nhw-294780:31 Urinalysis, Office (12324) UA - LEUKOCYTE ESTERASE Small (Normal) UA - NITRITE Positive (Normal) URINE UROBILINGN NITA TIMED Normal mg/dL (Normal) UA - PROTEIN 300 mg/dL (Normal) UA - PH 6.0 (Normal) UA - SPECIFIC GRAVITY 1.025 (Normal) UA - KETONES Small mg/dL (Normal) UA - BILIRUBIN Moderate (Normal) UA - GLUCOSE Negative (Normal) :15 HgA1C , Office (06422) HgA1C , Office 6.8 % (Normal) Range: 4.6 - 7.1 :15 Blood Glucose , Office (63076) Blood Glucose , Office 162 (Normal) 53-Kmv-932520:22 THYROID Radiology Report See Note (Normal) Comments: [...] 09/08/11 1330 Sign by: Prashant Delgadillo MD 18-Gdv-31310:59 COMP METABOLIC GAP 9 (Normal) Range: 5-15 [...] COL Comments: PATIENT NOT FASTINGPERFORMED BY: [facility] Wmwjvn7402 [facility] [id number] Information: SRC:[facility] [id number] COUNT (35835) Antimicrobial MIHEAD (Normal) Comments: S = Susceptible; [...] pneumoniae (Normal) Urine Final report Culture,Comprehensive (Normal) 78-Eja-97947:32 Urinalysis, Office (50451) UA - LEUKOCYTE ESTERASE Moderate (Normal) URINE UROBILINGN NITA TIMED Normal mg/dL (Normal) UA - PROTEIN 100 mg/dL (Normal) UA - PH 6.0 (Normal) UA - BLOOD Hemolyzed Large (Normal) UA - SPECIFIC GRAVITY 1.025 (Normal) UA - KETONES Negative mg/dL (Normal) UA - BILIRUBIN Negative (Normal) UA - GLUCOSE Negative (Normal) :28 Blood Glucose , Office (19087) Blood Glucose , Office 223 (Normal) :10 Urinalysis, Office (05144) UA - BILIRUBIN Small (Normal) UA - BLOOD Hemolyzed Large (Normal) UA - GLUCOSE Small (Normal) Comments: 100 UA - KETONES Negative mg/dL (Normal) UA - LEUKOCYTE ESTERASE Trace (Normal) UA - NITRITE Positive (Normal) UA - PH 5.0 (Normal) UA - PROTEIN 300 mg/dL (Normal) UA - SPECIFIC GRAVITY 1.020 (Normal) URINE UROBILINGN NITA TIMED 2 mg/dL (Normal) 5-Xsj-466307:29 URINE GENESIS CULTURE-NITA COL Comments: PATIENT NOT FASTINGPERFORMED BY: [facility] Pzvbgv6505 [facility] [id number] Information: SRC:UR [id number] COUNT (91058) Antimicrobial MIHEAD (Normal) Comments: S = Susceptible; [...] mL (Normal) Urine Final report (Normal) Culture,Comprehensive 6-Jtq-720128:31 Urinalysis, Office (30912) UA - BILIRUBIN Large (Normal) UA - BLOOD Hemolyzed Moderate (Normal) UA - GLUCOSE Moderate (Normal) Comments: 250 mg/dL UA - KETONES Small mg/dL (Normal) Comments: 15mg/dL UA - LEUKOCYTE ESTERASE Large (Normal) UA - NITRITE Positive (Normal) UA - PH 5.0 (Normal) UA - PROTEIN 300 mg/dL (Normal) UA - SPECIFIC GRAVITY 1.015 (Normal) URINE UROBILINGN NITA TIMED 8 mg/dL (Normal) :28 CBCD,SMEAR DIFF RED CELL MORPH SeeNote {NORMAL} [...] (Abnormal) Range: 0.358-3.74 :28 HgA1C , Office (27023) HgA1C , Office 8.3 % (Abnormal) Range: 4.6 - 7.1 :28 Blood Glucose , Office (02409) Blood Glucose , Office 176 (Normal) :24 [...] 200-240 mg/dL Borderline >240 mg/dL High Risk :54 BRAIN/HEAD W/WO CONTRAST Radiology See Note Comments: [...] the brain. Dictated on 10/13/10 1402 by Arnaldo Delgadillo MDrieleTranscribed on 10/13/101457 by ITS IMPORTSign by Prashant [...] These are unchanged. Dictated on 10/14/10855 by Stanislav Delgadillo MDranscribed on 10/14/10 0856 by ITS IMPORTSign by Prashant Delgadillo MD on 02/09/11 1702 Sign by: Prashant Delgadillo MD :44 HgA1C , Office (21260) HgA1C , Office 7.4 % (Abnormal) Range: 4.6 - 7.1 :44 Blood Glucose , Office (83706) Blood Glucose , Office 206 (Normal) :37 [...] Report See Note (Normal) Comments: Exam Number: [id number] AMMOGRAPHY - BILATERAL SCREENING INDICATION:Routine annual screening [...] attaching a ResultCode to this exam. ADDENDUM: [id number] HPBI/MDS Reported By: PRASHANT DELGADILLO :14 HgA1C , Office (00723) HgA1C , Office 7.0 % (Normal) Range: 4.6 - 7.1 :14 Blood Glucose , Office (06111) Blood Glucose , Office 164 (Normal) :30 LASHA DIR SEMI-QL LASHA DIRECT 24 AU/mL (Normal) :30 ANTI-dsDNA AB 10 {IU/mL} (Normal) :30 TSH 6.39 {uIU/mL} (Abnormal) Range: 0.358-3.74 84-Ogw-655006:35 C-REACTIVE PROTEIN (33954) Comments: PATIENT NOT FASTINGPERFORMED BY: [facility]CoSt[facility] HospitalOhfofm6463 [facility] [id number] C-Reactive Protein, Quant 6.5 mg/L (Abnormal) Range: 0.0-4.9 80-Ott-852185:35 SED RATE ERYTHROCYTE (05592) Comments: PATIENT NOT FASTINGPERFORMED BY: [facility] [id number] Sedimentation Rate-Westergren 14 mm/h (Normal) Range: 0-20 62-Wda-526929:35 RHEUMATOID FACTOR-QUANT (74183) Comments: PATIENT NOT FASTINGPERFORMED BY: [facility] [id number] RA Latex Turbid. 7.6 {IU/mL} (Normal) Range: 0.0-13.9 76-Cye-325134:35 LASHA (ANTINUCLEAR ANTIBODY) Comments: PATIENT NOT FASTINGPERFORMED BY: [facility] [id number] (70163) LASHA Direct Positive (Abnormal) :35 T3, FREE (TRIDOTHYRONINE) (16557) Comments: PATIENT NOT FASTINGPERFORMED BY: [facility] [id number] Triiodothyronine,Free,Serum 2.8 pg/mL (Normal) Range: 2.0-4.4 97-Sur-830400:35 T4, FREE (THYROXINE) (80322) Comments: PATIENT NOT FASTINGPERFORMED BY: [facility] [id number] T4,Free(Direct) 0.76 ng/dL (Abnormal) Range: 0.82-1.77 55-Ydz-025471:35 Anti-TPO Antibody (51028) Comments: PATIENT NOT FASTINGPERFORMED BY: [facility] [id number] Thyroid Peroxidase (TPO) Ab <6 {IU/mL} (Normal) Range: 0-34 84-Vlb-459018:35 TSH (31146) Comments: PATIENT NOT FASTINGPERFORMED BY: [facility] [id number] TSH 5.630 {uIU/mL} (Abnormal) Range: 0.450-4.500 Comments: Please note reference interval change 37-Gej-112302:35 METABOLIC PANEL, Comments: PATIENT NOT FASTINGPERFORMED BY: REINALDO [facility] Tnmklb4119 [employer] [facility] [id number] Information: [id number] COMPREHENSIVE (07911) ALT (SGPT) 55 [iU]/L (Abnormal) Range: 0-40 [...] Glucose, Serum 151 mg/dL (Abnormal) Range: 65-99 31-Pur-009019:02 GENESIS CULTURE-OTHER (95028) Comments: PATIENT NOT FASTINGPERFORMED BY: [facility] Oouhcm6773 [facility] [id number] Information: SRC:KATET [id number] Result 1 Yeast isolated. (Normal) Comments: Moderate growthRequest for further identification must be madewithin 1 week. Upper Respiratory Culture Final report (Normal) 48-Tqr-91424:37 Rapid Strep Test, Office (19155) Rapid Strep Test, Office Negative (Normal) 51-Wwv-851821:11 THYROID (HP) Radiology Report See Note (Normal) Comments: Exam Number: [id number] CLINICAL:This is a 45-year-old female patient with [...] CHOL 147 mg/dL (Normal) Comments: <200 mg/dL Voshydepj664-171 mg/dL Borderline>240 mg/dL High Risk HDL 32 [...] :41 TSH 4.85 {uIU/mL} (Abnormal) Range: 0.358-3.74 65-Kdr-664064:50 URINE GENESIS CULTURE-NITA COL Comments: PATIENT NOT FASTINGPERFORMED BY: [facility] Crtgnt3144 [facility] [id number] Information: SRC:UR ADD [id number] COUNT (40751) Result 1 Klebsiella pneumoniae Comments: 1,000 Colonies/mL (Normal) Result 2 MUG (Normal) Comments: Mixed urogenital floraGreater than 100,000 colony forming units per mL S = Susceptible; I = Intermediate; R = Resistant P = Positive; N = NegativeMICS are expressed in micrograms per mLAntibio tic RSLT#1 RSLT#2 RSLT#3 RSLT#4Amoxicillin/Clavulanic Acid [facility] Hospitalpicillin ICefepime SCeftriaxone SCefuroxime SCephalothin SCiprofloxacin SESBL NGentamicin SImipenem SLevofloxacin SNitrofurantoin SPiperacillin/Tazobactam STetracycline STobramycin STrimethoprim/Sulfa S Urine Final report (Normal) Culture,Comprehensive 68-Nrb-86248:55 Urinalysis, Office (60556) UA - LEUKOCYTE ESTERASE Small (Normal) UA - NITRITE Negative (Normal) URINE UROBILINGN NITA TIMED Normal mg/dL (Normal) UA - PROTEIN 30 mg/dL (Normal) UA - PH 6.0 (Normal) UA - BLOOD Negative (Normal) UA - SPECIFIC GRAVITY 1.020 (Normal) UA - KETONES Negative mg/dL (Normal) UA - BILIRUBIN Negative (Normal) UA - GLUCOSE Negative (Normal) 9-Mle-368849:37 PET/CT,TUMOR,BASE-THIGH,SUBS Radiology Report See Note (Normal) Comments: Exam Number: [id number] EXAM: Body PET study Head to Mid [...] consistent with normal physiologic distribution of theradiopharmaceutical. (Lissa et al, Radiology 224:783, 2002). Enhanced radiopharmaceutical concentration demonstrated at the le velof the laryngeal structures, contiguous to the cricopharyngeusmusculature and cricoid cartilage is consistent with normalphysiologic distribution of the radiopharmaceutical. (Koffi etal, Journal of Nuclear Medicine 44:398P, 2003). w Reported By: ADELA MOLIAN 8-Cfu-796891:00 PRANEETH+ELPU24 3467 ALBUMIN,U 37.7 % (Normal) OBRPD-9-CMSE,U 3.2 % (Normal) UUBNK-4-MDAY,U 7.6 % (Normal) BETA GLOB,U 23.1 % (Normal) GAMMA GLOB,U 28.5 % (Normal) PRANEETH RESULT,U Comment (Normal) Comments: No monoclonality detected. M-SPIKE,UR% SeeNote % (Normal) Comments: Result: Not Observed PROTEIN, U24 62.1 {mg/24_hr} Range: 30.0-150.0 (Normal) PROTEIN,UR 2.3 mg/dL (Normal) Range: 0.0-15.0 6-Dqi-423356:15 C-REACTIVE PROT < 2.90 mg/L (Normal) Range: 0.0-3.0 Comments: C-Reactive Protein (CRP) provides useful information for thediagnosis, therapy and monitoring of inflammatory processesand associated diseases. For the evaluation of Relative Riskfor Cardiovascular Dise ase, a High Sensitivity CRP (HSCRP)should be ordered. 9-Prd-473731:15 CBCD,SMEAR DIFF PLT EST SeeNote (Normal) Comments: [...] 4.2-5.4 WBC 4.3 K/mm3 (Abnormal) Range: 4.4-11.0 9-Jwv-758032:15 COMP METABOLIC CL 104 mmol/L (Normal) Range: [...] <126 mg/dLsuggests IMPAIRED HOMEOSTASIS per A.D.A. criteria. 6-Eoj-618224:15 ESR SED RATE 11 mm/h (Normal) Range: 0-20 :15 LDH 197 U/L (Abnormal) Range: 100-190 8-Nsx-427528:15 LIPID HDL 30 mg/dL (Abnormal) Comments: Reference [...] CHOL 154 mg/dL (Normal) Comments: <200 mg/dL Mcfjfygyt920-092 mg/dL Borderline>240 mg/dL High Risk :15 PROT.[id number] NOTE Comment (Normal) Comments: Protein electrophoresis scan will follow via computer,mail, or minibus driver delivery.Performed at: - [facility] [id number] Director: Kamlesh Arana MD ALBUMIN,UR 54.2 % (Normal) SNSUW-6-TOHY,U 1.2 % (Normal) NLBUR-6-JUUQ,U 9.4 % (Normal) BETA GLOB,U 23.4 % (Normal) GAMMA GLOB,U 11.8 % (Normal) M-SPIKE,U SeeNote % (Normal) Comments: Result: Not Observed PROTEIN,UR 13.6 mg/dL (Normal) Range: 0.0-15.0 6-Cyl-867354:15 SPE [id number] A/G RATIO 1.8 (Normal) Range: 0.7-2.0 GLOBULIN, [...] electrophoresis scan will follow via computer,mail, or minibus driver delivery. M-SPIKE SeeNote g/dL (Normal) Comments: Result: Not Observed GAMMA GLOBULIN 0.4 g/dL (Abnormal) Range: 0.5-1.6 ALBUMIN 3.9 g/dL (Normal) Range: 3.2-5.6 ALPHA-1 GLOBUL 0.2 g/dL (Normal) Range: 0.1-0.4 ALPHA-2 GLOBUL 0.7 g/dL (Normal) Range: 0.4-1.2 BETA GLOBULIN 0.9 g/dL (Normal) Range: 0.6-1.3 PROTEIN,TOTAL 6.1 g/dL (Normal) Range: 6.0-8.5 14-Lga-631562:28 BRAIN/HEAD WITHOUT CONTRAST Radiology Report See Note (Normal) Comments: Exam Number: [id number] CT SCAN OF BRAIN HISTORYLytic lesion, lymphoma. Scans were obtained at 2.5-mm intervals through the posterior fossaand 5-mm intervals through the remainder of the brai n. [facility] entstudy is compared to the examination [...] for confirmation. Reported By: TRUE NAGEL M.D. 51-Iez-487990:23 SPINE,CERVICAL WITHOUT CONTRAS Radiology Report See Note (Normal) Comments: Exam Number: [id number] CLINICAL:44 year old female with cervical radiculopathy. [...] tumor involvement. Reported By: SHARYN JASMINE M.D. 54-Hbg-627050:50 Blood Glucose , Office (09425) Blood Glucose , Office 105 (Normal) 30-Uuq-895488:50 HgA1C , Office (62467) HgA1C , Office 6.1 % (Normal) Range: 4.6 - 7.1 97-Lug-660510:24 URINE GENESIS CULTURE-NITA COL Comments: PATIENT NOT FASTINGPERFORMED BY: REINALDO [facility] Xyqgvg3400 [facility] [id number] Information: SRC:INGRID [id number] COUNT (15749) Antimicrobial MIHEAD (Normal) Comments: S = Susceptible; [...] mL (Normal) Urine Final report (Normal) Culture,Comprehensive 60-Rit-333780:41 Urinalysis, Office (02716) UA - LEUKOCYTE ESTERASE Large (Normal) UA - NITRITE Negative (Normal) URINE UROBILINGN NITA TIMED Normal mg/dL (Normal) UA - PROTEIN 100 mg/dL (Normal) UA - PH 5.0 (Normal) UA - BLOOD Hemolyzed Large (Normal) UA - SPECIFIC GRAVITY 1.025 (Normal) UA - KETONES Negative mg/dL (Normal) UA - BILIRUBIN Negative (Normal) UA - GLUCOSE Negative (Normal) 8-Kbe-852390:19 BLOOD GAS, O2 SAT ONLY - INITL Radiology Report See Note (Normal) Comments: Exam Number: [id number] Procedure completed. Please see MEDICAL RECORDS reports in PCI - OP - OP NOTE LET - LETTER. Reported By: BOONE CH M.D. 2-Yxd-212395:19 BLOOD GAS, O2 SAT ONLY - SUBSQ Radiology Report See Note (Normal) Comments: Exam Number: [id number] Procedure completed. Please see MEDICAL RECORDS reports in PCI - OP - OP NOTE LET - LETTER. Reported By: BOONE CH M.D. 0-Ass-741548:19 BLOOD GAS, O2 SAT ONLY - SUBSQ Radiology Report See Note (Normal) Comments: Exam Number: [id number] Procedure completed. Please see MEDICAL RECORDS reports in PCI - OP - OP NOTE LET - LETTER. Reported By: BOONE CH M.D. :45 RHC/LHC/CORS/LV Radiology Report See Note (Normal) Comments: Exam Number: [id number] Procedure completed. Please see MEDICAL RECORDS reports in PCI - OP - OP NOTE LET - LETTER. Reported By: BOONE CH M.D. 9-Hke-863033:59 BMP BUN 15 mg/dL (Normal) Range: 7-18 [...] MIXED GRAM POSITIVE ORGANISMS :58 Urinalysis, Office (16488) UA - BILIRUBIN Negative (Normal) UA - BLOOD Negative (Normal) UA - GLUCOSE Negative (Normal) UA - KETONES Negative mg/dL (Normal) UA - LEUKOCYTE ESTERASE Small (Normal) Comments: aw UA - NITRITE Negative (Normal) UA - PH 6.0 (Normal) UA - PROTEIN Negative mg/dL (Normal) UA - SPECIFIC GRAVITY 1.010 (Normal) URINE UROBILINGN NITA TIMED Normal mg/dL (Normal) :53 HgA1C , Office (03552) HgA1C , Office 5.7 % (Normal) Range: 4.6 - 7.1 :53 Blood Glucose , Office (93988) Blood Glucose , Office 133 (Normal) :24 [...] (Normal) Range: 6.4-8.2 :53 HgA1C , Office (57389) HgA1C , Office 10.0 % (Abnormal) Range: 4.6 - 7.1 :53 Blood Glucose , Office (18080) Blood Glucose , Office 410 (Normal) :46 [...] 11.6-14.6 WBC 4.0 K/mm3 (Abnormal) Range: 4.4-11.0 2-Ppd-357561:46 COMP METABOLIC A/G 1.2 {RATIO} (Normal) Range: [...] 500 mg/dL VLDL 49 mg/dL (Abnormal) Range: 26-Feb-200910:46 MICROALB:CRE UR MALB:CREAT 33.3 {mg/g_CRE} (Abnormal) MICROALBUMIN,UR 62.2 mg/L (Normal) UR CREAT 186.7 mg/dL (Normal) 71-Avv-382328:11 LIPID Comments: PATIENT NOT FASTING/DEMANDED TO BE [...] 500 mg/dL VLDL 31 mg/dL (Normal) Range: 40 42-Yhu-665175:11 LIVER Comments: PATIENT NOT FASTING/DEMANDED TO BE DRAWN ALT 43 U/L (Normal) Range: 30-65 D BILI 0.07 mg/dL (Normal) Range: 0.00-0.30 T BILI 0.35 mg/dL (Normal) Range: 0.00-1.00 ALB 3.4 g/dL (Normal) Range: 3.4-5.0 ALK P 210 U/L (Abnormal) Range: 50-136 AST 27 U/L (Normal) Range: 15-37 T PROT 6.4 g/dL (Normal) Range: 6.4-8.2 26-Wnl-997656:23 Urinalysis, Office (87161) Comments: done BC UA - BILIRUBIN Negative (Normal) UA - BLOOD Hemolyzed Large (Normal) UA - GLUCOSE Large (Normal) Comments: > 1000mg/dL UA - KETONES Negative mg/dL (Normal) UA - LEUKOCYTE ESTERASE Moderate (Normal) UA - NITRITE Negative (Normal) UA - PH 6.0 (Normal) UA - PROTEIN 30 mg/dL (Normal) UA - SPECIFIC GRAVITY 1.010 (Normal) URINE UROBILINGN NITA TIMED Normal mg/dL (Normal) 56-Adz-962516:44 MYOCARD PERF SPECT REST/STRESS Radiology Report See Note (Normal) Comments: Exam Number: [id number] MYOCARDIAL PERFUSION SCAN TECHNIQUEThe patient was injected [...] of 37%. Reported By: NOE MORRIS M.D. 42-Nnl-99810:39 SPINE, LUMBAR W/W/O CONTRAST Radiology Report See Note (Normal) Comments: Exam Number: [id number] MAGNETIC RESONANCE IMAGING OF THE LUMBAR SPINE [...] other abnormality. Reported By: SUSAN GOMEZ M.D. 79-Jvz-122833:04 CULTURE, URINE URINE CULTURE See Note {CFU/mL} (Normal) Comments: COLONY COUNT 25,000-50,000 ORGANISM 1: MIXED GRAM POSITIVE ORGANISMS 21-Ctw-919061:15 Urinalysis, Office (86723) UA - LEUKOCYTE ESTERASE Small (Normal) Comments: aw UA - NITRITE Negative (Normal) UA - PH 5.0 (Normal) UA - PROTEIN Negative mg/dL (Normal) URINE UROBILINGN NITA TIMED Normal mg/dL (Normal) UA - BILIRUBIN Negative (Normal) UA - BLOOD Negative (Normal) UA - GLUCOSE Negative (Normal) UA - KETONES Negative mg/dL (Normal) UA - SPECIFIC GRAVITY 1.025 (Normal) 69-Top-776134:09 Blood Glucose , Office (89322) Blood Glucose , Office 231 (Normal) 69-Ffk-335870:09 HgA1C , Office (26455) HgA1C , Office 7.1 % (Normal) Range: 4.6 - 7.1 86-Uwe-795466:42 CBCD,SMEAR DIFF CELLS COUNTED 100 (Normal) HCT [...] for patient's is the eGFRmultiplied by 1.212. [facility] Laboratory uses the abbreviated Modification of [...] Disease W/O Kidney Disease>/= 90 Stage One Vqgcxd36 - 89 Stage Two Suspect Decreased GFR30 [...] T PROT 6.5 g/dL (Normal) Range: 6.4-8.2 01-Ubs-578222:42 LIPID CHOL 182 mg/dL (Normal) Comments: <200 [...] mg/dL VLDL 36 mg/dL (Normal) Range: 5-40 04-Kmp-132448:42 MICROALB:CRE UR MALB:CREAT 35.4 {mg/g_CRE} (Abnormal) MICROALBUMIN,UR 54.7 mg/L (Normal) UR CREAT 154.6 mg/dL (Normal) 26-Vyh-553862:42 TSH 2.57 {uIU/mL} (Normal) Range: 0.34-4.82 :40 CULTURE, URINE URINE CULTURE See Note {CFU/mL} (Normal) Comments: COLONY COUNT 1000-10,000 ORGANISM 1: MIXED GRAM POS & NEG ORGANISMS 71-Pfx-507627:36 Urinalysis, Office (09923) UA - BILIRUBIN Negative (Normal) UA - BLOOD Non Hemolyzed Trace (Normal) UA - KETONES Negative mg/dL (Normal) UA - LEUKOCYTE ESTERASE Moderate (Normal) UA - NITRITE Negative (Normal) UA - PH 5.0 (Normal) UA - PROTEIN Negative mg/dL (Normal) UA - SPECIFIC GRAVITY 1.015 (Normal) URINE UROBILINGN NITA TIMED Normal mg/dL (Normal) UA - GLUCOSE Negative (Normal) 16-Ock-568600:20 CULTURE, URINE URINE CULTURE See Note {CFU/mL} (Normal) Comments: COLONY COUNT 25,000-50,000 ORGANISM 1: MIXED GRAM POS & NEG ORGANISMS :12 Urinalysis, Office (20932) UA - BILIRUBIN Negative (Normal) UA - BLOOD Negative (Normal) UA - GLUCOSE Negative (Normal) UA - KETONES Negative mg/dL (Normal) UA - LEUKOCYTE ESTERASE Small (Normal) UA - NITRITE Negative (Normal) UA - PH 6.0 (Normal) UA - PROTEIN Negative mg/dL (Normal) UA - SPECIFIC GRAVITY 1.005 (Normal) URINE UROBILINGN NITA TIMED Normal mg/dL (Normal) 56-Yvf-357684:08 CBCD,SMEAR DIFF CELLS COUNTED 100 (Normal) EOS [...] Range: 0.34-4.82 :28 Blood Glucose , Office (75875) Blood Glucose , Office 124 (Normal) :28 HgA1C , Office (70902) HgA1C , Office 6.1 % (Normal) Range: 4.6 - 7.1 :38 CERULOPLAS 1560 21.3 mg/dL (Normal) Range: 17.9-53.3 Comments: Performed At: [address] [id number] :38 FERRITIN 189 ng/mL (Normal) Range: 8-252 :38 HEP-ABC 517482 HB CORE [id number] SeeNote (Normal) Comments: Result: Negative HB SURF [...] Please note reference interval change HEP A AB,T.6730 SeeNote (Normal) Comments: Result: Negative HEP A [...] 90-96% of patients with primary biliary cirrhosis. 50-Pcj-563831:03 GGTP 61 U/L (Abnormal) Range: 5-55 48-Lbe-906149:03 LIVER ALB 3.7 g/dL (Normal) Range: 3.4-5.0 ALK P 161 U/L (Abnormal) Range: 50-136 ALT 35 U/L (Normal) Range: 30-65 AST 18 U/L (Normal) Range: 15-37 D BILI 0.06 mg/dL (Normal) Range: 0.00-0.30 T BILI 0.33 mg/dL (Normal) Range: 0.00-1.00 T PROT 6.5 g/dL (Normal) Range: 6.4-8.2 3-Itx-136696:02 THYROID (HP) Radiology Report See Note (Normal) Comments: Exam Number: [id number] THYROID ULTRASOUND HISTORYThyromegaly. High-resolution, real-time linear images [...] is recommended. Reported By: TRUE NAGEL M.D. 18-Cya-989696:05 Blood Glucose , Office (52928) Blood Glucose , Office 135 (Normal) 26-Xnh-881418:05 HgA1C , Office (05285) HgA1C , Office 5.6 % (Normal) Range: [...] Report See Note (Normal) Comments: Exam Number: [id number] CT BRAIN WITHOUT AND WITH INTRAVENOUS CONTRAST [...] clinically warranted. Reported By: AIDAN MASON M.D. 17-Yus-949533:30 CBCD Comments: CALL [phone] TO [phone] BASO% 0.8 % (Normal) Range: 0-1 EO% [...] 1+ANISOCYTOSIS WBC 3.8 K/mm3 (Abnormal) Range: 4.4-11.0 28-Ccq-175865:30 COMP METABOLIC Comments: CALL [phone] TO [phone] A/G 1.5 {RATIO} (Normal) Range: 0.9-2.4 ALB [...] T PROT 5.9 g/dL (Abnormal) Range: 6.4-8.2 46-Ssj-157438:30 LDH 206 U/L (Abnormal) Comments: CALL [phone] TO [phone] Range: 100-190 12-Iwl-555404:30 URIC 5.7 mg/dL (Normal) Comments: CALL [phone] TO [phone] Range: 2.6-6.0 :30 CULT, DP WOUND Comments: [...] mg/dL (Abnormal) Range: 40-230 Comments: Performed At: [address] [id number] :[id number] LDH 211 U/L (Abnormal) Range: 100-190 [...] P-IMM (Normal) Comments: REPORT SIGNED: MATEO CASTANEDA 01/31/0702-Nov-20061-Ktk-713636:25 T3UP Comments: COMMENTS: PT IN CATHLABPrecautions*: NOT APPLICABLE T3 UPTAKE 31 % (Normal) Range: 30-39 T7 (FTI) 2.5 (Normal) Range: 1.4-4.5 :25 T4 THYROXIN 8.1 ug/dL (Normal) Comments: COMMENTS: PT IN CATHLABPrecautions*: NOT APPLICABLE Range: 4.8-13.9 :25 TSH 1.78 {uIU/mL} (Normal) Comments: COMMENTS: PT IN CATHLABPrecautions*: NOT APPLICABLE Range: 0.34-4.82 20-Wpn-366792:20 BMP Comments: COMMENTS: BED 13 DR IRVINPrecautionsharath*: [...] 3.5-5.1 NA 136 mmol/L (Normal) Range: 136-145 88-Vjn-240557:20 CBCD Comments: COMMENTS: BED [address] DR IRVINPrecaprisca*: [...] 47-70 WBC 23.9 K/mm3 (Abnormal) Range: 4.4-11.0 23-Cmm-31090:30 AFB C&S 688845 Comments: Precautions*: CHEMO PRECAUTIONSSPECIMEN DESCRIPTION: #2 SAME SOURCE AFB CULT See Note Comments: TESTING PERFORMED AT [facility]. ORIGINAL REPORT ON FILE IN LAB CONTAINS ADDITIONAL TEST SITE INFORMATION. (Normal) CULTURE, ACID FAST NO ACID-FAST BACILLI ISOLATED AFTER 6 WEEKS. AFB SMEAR See Note Comments: TESTING PERFORMED AT [facility]. ORIGINAL REPORT ON FILE IN LAB CONTAINS ADDITIONAL TEST SITE INFORMATION. (Normal) ACID FAST BACILLUS SMEAR NO ACID-FAST BACILLI OBSERVED ON SMEAR. 13-D CULT,ALFREDITO See Note Comments: Precautions*: CHEMO PRECAUTIONSSPECIMEN DESCRIPTION: #1 SAME SOURCE ec-2 8482 (Normal) Comments: ` TESTING PERFORMED AT [facility]. ORIGINAL REPORT ON FILE IN LAB CONTAINS ADDITIONAL TEST SITE INFORMATION. 0069 CULTURE, FUNGUS NO YEAST OR MOLD ISOLATED AFTER 4 WEEKS. :30 13-D CYTOLOGY, SeeNote Comments: Result: SEE PATHOLOGY REPORT Specimen submitted to Anatomical Pathology Department for testing. ec-2 BF/CSF (Normal) 0069 :30 43-Odz-22420:30 FLUID P-FLU (Normal) Comments: OPERATION Not noted HISTORY Lymphoma PRE-OPERATIVE DIAGNOSIS Pain injection lower back TISSUE SUBMITTED CSF for cytology DIAGNOSIS (CYTOLOGY) Cerebrospinal fluid (cytospins and cell block): Negat scott for malignant cells. SJ: 09/08/06 CYTOLOGY STUDY The specimen is bloody. CYTOLOGY GROSS Received is 2.5 ml of red cloudy fluid designated CSF. Submitted for cytology study. / : 1 11/08/05 TC:5 ADDENDUM Comment: Sections of cell block are negative for AFB and fungal organisms. Matched controls are appropriate. ADDENDUM SIGNED: MATEO CASTANEDA 09/08/06 REPORT SIGNED: TONI YEPEZ 09/08/0616-Aug-20068:25 CBCD,SMEAR DIFF ANISO 1+ (Normal) BAND 3 [...] DRAWN 07/22/06-TEST MISSED Range: 100-190 :51 SPE 500375 A/G RATIO 1.3 (Normal) Range: 0.7-2.0 ALBUMIN [...] Evidenceof monoclonal protein is not apparent.Performed At: [facility] [place], [place] [id number] M-SPIKE SeeNote (Normal) Comments: Result: Not Observed NOTE: Comment (Normal) Comments: Protein electrophoresis scan will follow via mail orcourier. PROTEIN,TOTAL 6.5 g/dL (Normal) Range: 6.0-8.5 :49 Blood Glucose , Office (57053) Blood Glucose , Office 84 (Normal) :49 HgA1C , Office (80448) HgA1C , Office 6.6 % (Normal) Range: [...] mellitus type II, controlled : Eprescribed prescriptions (G85) Indication: Diabetes mellitus type II, controlled Uncontrolled type II diabetes mellitus : Eprescribed prescriptions (G85) Indication: Uncontrolled type II diabetes mellitus Uncontrolled type II diabetes mellitus : Diet, Exercise, and Wt loss Indication: Uncontrolled type II diabetes mellitus Current nonsmoker : Eprescribed prescriptions (G85) Indication: Current nonsmoker Mixed hyperlipidemia : *Cholesterol - Medication Side Effects Indication: Mixed hyperlipidemia BMI 36.0-36.9,adult : Eprescribed prescriptions (G85) Indication: BMI 36.0-36.9,adult Essential hypertension with goal blood pressure less than 130/80 : Eprescribed prescriptions (G8553) Indication: Essential hypertension with goal blood pressure less than 130/80 Mixed hyperlipidemia : Diet, Exercise, and Wt loss Indication: Mixed hyperlipidemia Uncontrolled type II diabetes mellitus : Diet, Exercise, and Wt loss Indication: Uncontrolled type II diabetes mellitus Uncontrolled type II diabetes mellitus : Eprescribed prescriptions (G85) Indication: Uncontrolled type II diabetes mellitus Uncontrolled type II diabetes mellitus : Diet, Exercise, and Wt loss Indication: Uncontrolled type II diabetes mellitus Uncontrolled type II diabetes mellitus : Eprescribed prescriptions (G85) Indication: Uncontrolled type II diabetes mellitus UTI [...] eye, right : Follow up tomorrow with [facility] Indication: Pain, eye, right Need for [...] Paroxysmal tachycardia Planned Observations CPK MB FRACTION (73786)Indication: SOB (shortness of breath) On: : Request Comments: stat ASSAY, TROPONIN, QUANTITATIVE (aka Troponin I) (10559)Indication: SOB (shortness of breath) On: Request Comments: stat CBC W/AUTO DIFF WBC (16807)Indication: SOB (shortness of breath) On: : Request Comments: stat METABOLIC PANEL, COMPREHENSIVE (71552)Indication: SOB (shortness of breath) On: Request Comments: stat D-Dimer (59837)Indication: SOB (shortness of breath) On: :08 Request Comments: stat BNTP (41477)Indication: SOB (shortness of breath) On: Request Comments: stat CBC with auto diff (55239)Indication: Diabetes mellitus type II, controlled On: :03 Request LIPID PANEL (59924)Indication: Diabetes mellitus type II, controlled On: : Request METABOLIC PANEL, COMPREHENSIVE (54946)Indication: Diabetes mellitus type II, controlled On: : Request HGB A1C (09110)Indication: Diabetes mellitus type II, controlled On: : Request TSH (THYROID STIMULATING HORMONE) (42363)Indication: Acquired hypothyroidism On: :02 Request Metabolic Panel, Basic (79656)Indication: Hyponatremia On: 83-Qaq-288913:00 Request TSH (43119)Indication: Diabetes mellitus type II, controlled On: :48 Request Vitamin B-12 (cyanocobalamin) (02288)Indication: B12 deficiency On: :45 Request CBC WITH MANUAL DIFF (47257)Indication: B12 deficiency On: :45 Request T3, FREE (TRIDOTHYRONINE) (49550)Indication: Thyroid nodule On: :48 Request Comments: add to labs already drawn T4, FREE (THYROXINE) (89721)Indication: Thyroid nodule On: :47 Request Comments: add to labs already drawn Digoxin (44601)Indication: Cardiomyopathy On: :44 Request LIPID PANEL (43236)Indication: Mixed hyperlipidemia On: :43 Request TSH (21868)Indication: Acquired hypothyroidism On: :43 Request Vitamin D Hydroxy (95909)Indication: Vitamin D deficiency On: :43 Request WJDHV-TVKCZFFYYZC-WOCZI (46514)Indication: Fatty liver On: :42 Request VITAMIN B-12 (CYANOCOBALAMIN) (18036)Indication: Fatigue On: :42 Request URINALYSIS, W/ MICRO (66256)Indication: Diabetes mellitus type II, controlled On: :30 Request MICROALBUMIN: CREATININE RATIO ([id number]) AND ([id number])Indication: Diabetes mellitus type II, controlled On: :29 Request CBC with auto diff ([id number])Indication: Diabetes mellitus type II, controlled On: :29 Request METABOLIC PANEL, COMPREHENSIVE ([id number])Indication: Diabetes mellitus type II, controlled On: :29 Request HGB A1C ([id number])Indication: Diabetes mellitus type II, controlled On: [id number] Request HEPATIC FUNCTION PANEL ([id number])Indication: Elevated liver enzymes On: :38 Request Comments: do in hospital tuesday when get [place] Metabolic Panel, Comprehensive ([id number])Indication: Epigastric pain On: :54 Request Sed Rate Erythrocyte (55013)Indication: Epigastric pain On: :54 Request CBC, Platelets & Auto Diff ([id number])Indication: Epigastric pain On: :54 Request OVA & PARASITE DIR SMEAR ([id number])Indication: Diarrhea On: :53 Request OCCULT BLOOD FECES SCREEN ([id number])Indication: Diarrhea On: :53 Request LEUKOCYTE COUNT, FECAL ([id number])Indication: Diarrhea On: :53 Request C-DIFFICILE, STOOL (09321)Indication: Diarrhea On: :53 Request GENESIS CULTURE-STOOL (11649)Indication: Diarrhea On: :53 Request Magnesium (98348)Indication: Fatigue On: 56-Wmg-967012:42 Request Vitamin B-12 (cyanocobalamin) (62550)Indication: Fatigue On: 68-Eyq-911593:41 Request MICROALBUMIN: CREATININE RATIO (00292) AND (32337)Indication: Diabetes mellitus type II, controlled On: 70-Tbp-550105:40 Request LIPID PANEL (63146)Indication: Mixed hyperlipidemia On: :39 Request CBC W/AUTO DIFF WBC (18680)Indication: Fatty liver On: :30 Request METABOLIC PANEL, COMPREHENSIVE (08024)Indication: Fatty liver On: 43-Bmz-650422:30 Request Vitamin D Hydroxy (36436)Indication: Vitamin D deficiency On: :30 Request TSH ([id number])Indication: Acquired hypothyroidism On: :30 Request Digoxin (78318)Indication: Cardiomyopathy On: :29 Request LIPASE (02200)Indication: Epigastric pain On: :28 Request AMYLASE (88801)Indication: Epigastric pain On: :28 Request URINE GENESIS CULTURE-IDENTIFICATN (52276)Indication: Leukocytes in urine On: 33-Vbj-524565:38 Request MICROALBUMIN: CREATININE RATIO (97150) AND (20831)Indication: Essential hypertension with goal blood pressure less than 130/80 On: :58 Request CBC W/AUTO DIFF WBC (70627)Indication: Essential hypertension with goal blood pressure less than 130/80 On: :58 Request METABOLIC PANEL, COMPREHENSIVE (60843)Indication: Essential hypertension with goal blood pressure less than 130/80 On: :58 Request VGWYL-[id number] ([id number])Indication: Abnormal tumor markers On: :57 Request Vitamin D Hydroxy (58534)Indication: Vitamin D deficiency On: :09 Request LIPOPROTEIN, BLD, BY NMR ([id number])Indication: Mixed hyperlipidemia On: : Request CBC W/AUTO DIFF WBC ([id number])Indication: Diabetes mellitus type II, controlled On: :09 Request METABOLIC PANEL, COMPREHENSIVE (23857)Indication: Diabetes mellitus type II, controlled On: :09 Request Potassium Serum (49455)Indication: Hypopotassemia On: 11-Bxl-158559:02 Request POSNE-VKLHZOCECFV-BIGDS ([id number])Indication: Fatty liver On: 20-Hsk-943656:57 Request MICROALBUMIN: CREATININE RATIO (35830) AND ([id number])Indication: Essential hypertension with goal blood pressure less than 130/80 On: :45 Request CBC W/AUTO DIFF WBC (69631)Indication: Essential hypertension with goal blood pressure less than 130/80 On: :45 Request METABOLIC PANEL, COMPREHENSIVE (29840)Indication: Essential hypertension with goal blood pressure less than 130/80 On: :45 Request Vitamin D Hydroxy (98197)Indication: Vitamin D deficiency On: :45 Request TSH ([id number])Indication: Acquired hypothyroidism On: :45 Request LIPID PANEL (40819)Indication: Mixed hyperlipidemia On: :45 Request CBC W/AUTO DIFF WBC ([id number])Indication: Diabetes mellitus type II, controlled On: :28 Request UXLFK-SWFMPCJTXHZ-[id number] ([id number])Indication: Fatty liver On: 44-Uks-467261:03 Request METABOLIC PANEL, COMPREHENSIVE (31608)Indication: Mixed hyperlipidemia On: : Request LIPOPROTEIN, BLD, BY NMR ([id number])Indication: Mixed hyperlipidemia On: : Request Metabolic Panel, Basic (96541)Indication: Hypopotassemia On: :55 Request Comments: 10 days CBC (AUTO) (84500)Indication: Uncontrolled type II diabetes mellitus On: : Request Vitamin D Hydroxy (13048)Indication: Vitamin D deficiency On: :03 Request MICROALBUMIN: CREATININE RATIO (32021) AND ([id number])Indication: Uncontrolled type II diabetes mellitus On: : Request METABOLIC PANEL, COMPREHENSIVE ([id number])Indication: Essential hypertension with goal blood pressure less than 130/80 On: : Request NMKOF-FJWIOFADJAY-LAPFB ([id number])Indication: Fatty liver On: : Request LIPID PANEL (37719)Indication: Mixed hyperlipidemia On: : Request TSH (37439)Indication: Thyroid nodule On: : Request CBC W/AUTO DIFF WBC ([id number])Indication: Uncontrolled type II diabetes mellitus On: :47 Request METABOLIC PANEL, COMPREHENSIVE (08439)Indication: Uncontrolled type II diabetes mellitus On: :47 Request LIPID PANEL (45391)Indication: Mixed hyperlipidemia On: :47 Request Vitamin D Hydroxy (65787)Indication: Vitamin D deficiency On: :47 Request PIOEA-SHHPQPVPFWX-OEPDA ([id number])Indication: Fatty liver On: : Request CBC W/AUTO DIFF WBC (09890)Indication: Uncontrolled type II diabetes mellitus On: :26 Request LIPID PANEL (87190)Indication: Mixed hyperlipidemia On: : Request MICROALBUMIN: CREATININE RATIO (63957) AND ([id number])Indication: Uncontrolled type II diabetes mellitus On: : Request TSH ([id number])Indication: Acquired hypothyroidism On: : Request METABOLIC PANEL, COMPREHENSIVE (12524)Indication: Essential hypertension with goal blood pressure less than 130/80 On: :25 Request Vitamin D Hydroxy (41663)Indication: Vitamin D deficiency On: :25 Request CALCIFEDIOL (96479)Indication: Vitamin D deficiency On: 14-Alh-276906:44 Request Comments: to be done Jun 2015 after done with ergocalciferol URINE GENESIS CULTURE (NITA COL COUNT) ([id number])Indication: UTI (lower urinary tract infection) On: 3-Gjd-409759:22 Request LIPID PANEL ([id number])Indication: Mixed hyperlipidemia On: 4-Kot-554816:15 Request CBC W/AUTO DIFF WBC ([id number])Indication: Uncontrolled type II diabetes mellitus On: 9-Bhm-691479:14 Request METABOLIC PANEL, COMPREHENSIVE ([id number])Indication: Uncontrolled type II diabetes mellitus On: 3-Cmr-000507:14 Request TSH (23542)Indication: Acquired hypothyroidism On: 1-Vtj-548499:14 Request ZKYMA-FCBCVNLIQMN-WGVXC ([id number])Indication: Fatty liver On: 6-Lpf-567839:14 Request CBC, Platelets & Auto Diff (75801)Indication: HX, PERSONAL, MALIGNANCY, LYMPHATIC NEC On: 97-Qhl-76014:07 Request CBC WITH MANUAL DIFF ([id number])Indication: Abnormal glucose tolerance test On: :33 Request MICROALBUMIN: CREATININE RATIO (13377) AND (58383)Indication: Abnormal glucose tolerance test On: :33 Request LIPID PANEL (65341)Indication: Mixed hyperlipidemia On: :31 Request METABOLIC PANEL, COMPREHENSIVE (25690)Indication: Abnormal glucose tolerance test On: :31 Request URINE GENESIS CULTURE-NITA COL COUNT ([id number])Indication: Dysuria On: 04-Cld-866660:03 Request RETICULOCYTE COUNT (77810)Indication: Anemia On: :37 Request Iron ([id number])Indication: Anemia On: :37 Request Ferritin (26720)Indication: Anemia On: :37 Request CBC (Auto) (46652)Indication: Anemia On: :37 Request CBC, Platelets & Auto Diff (68438)Indication: Fever On: :03 Request Metabolic Panel, Comprehensive ([id number])Indication: Fever On: :03 Request HgA1C , Office (82425)Indication: Abnormal glucose tolerance test On: :55 Request CBC WITH MANUAL DIFF ([id number])Indication: Abnormal glucose tolerance test On: 15-Kov-270168:53 Request METABOLIC PANEL, COMPREHENSIVE (32520)Indication: Abnormal glucose tolerance test On: :53 Request LIPID PANEL (11124)Indication: Mixed hyperlipidemia On: :53 Request IVVVA-NYWTKRTCHAF-ITEQE ([id number])Indication: Fatty liver On: :53 Request PTT (Activated Partial Thromboplastin Time) (01822)Indication: Fatty liver On: : Request PT (Prothrobim Time) (38772)Indication: Fatty liver On: :53 Request MICROALBUMIN: CREATININE RATIO (17331) AND ([id number])Indication: Abnormal glucose tolerance test On: 63-Kxo-697600:49 Request Anti-TPO Antibody (30051)Indication: Acquired hypothyroidism On: 56-Hni-171046:14 Request Comments: 1 month TSH (22409)Indication: Acquired hypothyroidism On: 21-Eal-220760:13 Request Comments: 1 month T4, FREE (THYROXINE) (14394)Indication: Acquired hypothyroidism On: 61-Piy-254521:13 Request Comments: 1 month T3, FREE (TRIDOTHYRONINE) (78791)Indication: Acquired hypothyroidism On: 08-Vwe-988952:13 Request Comments: 1 month CBC WITH MANUAL DIFF (81821)Indication: Abnormal glucose tolerance test On: :38 Request METABOLIC PANEL, COMPREHENSIVE (49991)Indication: Abnormal glucose tolerance test On: :38 Request LIPID PANEL (20697)Indication: Mixed hyperlipidemia On: :38 Request MICROALBUMIN: CREATININE RATIO (76182) AND (35182)Indication: Abnormal glucose tolerance test On: 81-Trf-596255:56 Request CBC WITH MANUAL DIFF ([id number])Indication: Elevated LFTs On: 10-Jgg-088885:56 Request METABOLIC PANEL, COMPREHENSIVE (33691)Indication: Elevated LFTs On: 48-Krh-743852:56 Request LIPID PANEL (67089)Indication: Mixed hyperlipidemia On: 52-Czm-236077:56 Request TSH (82573)Indication: Acquired hypothyroidism On: 73-Olf-749878:56 Request CBC WITH MANUAL DIFF ([id number])Indication: Essential hypertension with goal blood pressure less than 130/80 On: 04-Oct-20119:34 Request TSH (76060)Indication: Acquired hypothyroidism On: :34 Request METABOLIC PANEL, COMPREHENSIVE (88147)Indication: Fatty liver On: :33 Request LIPID PANEL ([id number])Indication: Mixed hyperlipidemia On: :33 Request MICROALBUMIN: CREATININE RATIO (17502) AND (36336)Indication: Uncontrolled type II diabetes mellitus On: :46 Request TSH (74621)Indication: Acquired hypothyroidism On: :46 Request LIPID PANEL ([id number])Indication: Mixed hyperlipidemia On: :45 Request METABOLIC PANEL, COMPREHENSIVE (78396)Indication: Elevated LFTs On: :45 Request HgA1C , Office (21541)Indication: Uncontrolled type II diabetes mellitus On: 94-Bwm-91022:28 Request URINE GENESIS CULTURE-NITA COL COUNT (59907)Indication: Cystitis, acute On: 61-Eii-34431:43 Request URINE GENESIS CULTURE-IDENTIFICATN (05038)Indication: Dysuria On: :10 Request CBC WITH MANUAL DIFF ([id number])Indication: Headache On: 84-Rqw-785367:56 Request METABOLIC PANEL, COMPREHENSIVE (74826)Indication: Headache On: 64-Vnp-546251:56 Request LIPID PANEL ([id number])Indication: Mixed hyperlipidemia On: 11-Sxm-377066:56 Request TSH ([id number])Indication: Acquired hypothyroidism On: 38-Xbn-542099:56 Request METABOLIC PANEL, COMPREHENSIVE (66596)Indication: Uncontrolled type II diabetes mellitus On: 76-Del-418897:28 Request HEPATIC FUNCTION PANEL (00708)Indication: Mixed hyperlipidemia On: 15-Bia-950953:28 Request LIPID PANEL ([id number])Indication: Mixed hyperlipidemia On: 40-Odq-361692:28 Request LIPID PANEL (23741)Indication: Mixed hyperlipidemia On: :39 Request MICROALBUMIN: CREATININE RATIO (08751) AND (97691)Indication: Uncontrolled type II diabetes mellitus On: :39 Request CBC WITH MANUAL DIFF ([id number])Indication: Essential hypertension with goal blood pressure less than 130/80 On: :39 Request METABOLIC PANEL, COMPREHENSIVE (50629)Indication: Elevated LFTs On: :39 Request TSH ([id number])Indication: Acquired hypothyroidism On: :36 Request TSH ([id number])Indication: Thyroid nodule On: :20 Request METABOLIC PANEL, COMPREHENSIVE ([id number])Indication: Elevated LFTs On: :19 Request LIPID PANEL ([id number])Indication: Mixed hyperlipidemia On: :19 Request C-REACTIVE PROTEIN ([id number])Indication: Abnormal findings on diagnostic imaging of other specified body structures On: 31-Atd-462884:02 Request SED RATE ERYTHROCYTE ([id number])Indication: Abnormal findings on diagnostic imaging of other specified body structures On: 91-Rog-464163: Request LDH (LD) (LACTATE DEHYDROGENASE) (46889)Indication: Abnormal findings on diagnostic imaging of other specified body structures On: 79-Zhp-972110: Request Urine Protein Electrophoresis (UPEP) ([id number])Indication: Abnormal findings on diagnostic imaging of other specified body structures On: 06-Nwa-793694:02 Request Serum Protein Electrophoresis (SPEP) (51616)Indication: Abnormal findings on diagnostic imaging of other specified body structures On: 08-Ykg-966559:02 Request METABOLIC PANEL, COMPREHENSIVE (11094)Indication: Diabetes mellitus type II, controlled On: :19 Request LIPID PANEL ([id number])Indication: Mixed hyperlipidemia On: :19 Request URINE GENESIS CULTURE-NITA COL COUNT ([id number])Indication: Dysuria On: 13-Hwt-827616:58 Request HEPATIC FUNCTION PANEL ([id number])Indication: Elevated LFTs On: :18 Request LIPID PANEL ([id number])Indication: Mixed hyperlipidemia On: 89-Qsj-451684:17 Request MICROALBUMIN: CREATININE RATIO ([id number]) AND ([id number])Indication: Uncontrolled type II diabetes mellitus On: 1-Ccr-178281:47 Request CBC WITH MANUAL DIFF ([id number])Indication: Uncontrolled type II diabetes mellitus On: 9-Eop-134661:47 Request METABOLIC PANEL, COMPREHENSIVE (52913)Indication: Uncontrolled type II diabetes mellitus On: 3-Muc-930997:47 Request HEPATIC FUNCTION PANEL ([id number])Indication: Elevated LFTs On: 6-Wof-850481:45 Request LIPID PANEL ([id number])Indication: Mixed hyperlipidemia On: 1-Vnu-514219:44 Request HEPATIC FUNCTION PANEL ([id number])Indication: Fatty liver On: 4-Qgz-081641:30 Request LIPID PANEL (06044)Indication: Mixed hyperlipidemia On: 0-Ess-713826:30 Request URINE GENESIS CULTURE (NITA COL COUNT) ([id number])Indication: Low back pain potentially associated with radiculopathy On: 54-Qxb-514426:03 Request MICROALBUMIN: CREATININE RATIO ([id number]) AND ([id number])Indication: Dysuria On: 59-Aqt-565919:05 Request LIPID PANEL ([id number])Indication: Dysuria On: 28-Wcm-245924:05 Request TSH ([id number])Indication: Dysuria On: 35-Dfu-971886:05 Request METABOLIC PANEL, COMPREHENSIVE ([id number])Indication: Dysuria On: 46-Bfj-943754:04 Request CBC WITH MANUAL DIFF ([id number])Indication: Dysuria On: 22-Osq-224418:04 Request URINE GENESIS CULTURE-NITA COL COUNT (78031)Indication: Dysuria On: 86-Ett-678423:45 Request URINE GENESIS CULTURE (NITA COL COUNT) ([id number])Indication: Dysuria On: 89-Xfv-836236:17 Request METABOLIC PANEL, COMPREHENSIVE ([id number])Indication: Fatty liver On: 76-Anx-93954:58 Request Magnesium (09823)Indication: Palpitations On: 40-Zsf-25019:51 Request TSH ([id number])Indication: Palpitations On: 74-Tff-76154:51 Request METABOLIC PANEL, COMPREHENSIVE (58274)Indication: Palpitations On: 62-Rwl-49121:51 Request CBC WITH MANUAL DIFF ([id number])Indication: Palpitations On: 99-Xsh-41723:51 Request GGT (Gamma Glutamyl Transferase) ([id number])Indication: Elevated LFTs On: 56-Twq-645896:16 Request HEPATIC FUNCTION PANEL ([id number])Indication: Elevated LFTs On: 85-Ijo-212299:16 Request VITAMIN B-12 (CYANOCOBALAMIN) (92127)Indication: Fatigue On: 07-Igj-84156:23 Request MICROALBUMIN URINE QUANT ([id number])Indication: Diabetes mellitus type II, controlled On: 48-Olo-84063:22 Request TSH ([id number])Indication: Fatigue On: :22 Request CBC WITH MANUAL DIFF ([id number])Indication: Diabetes mellitus type II, controlled On: :22 Request METABOLIC PANEL, COMPREHENSIVE (32403)Indication: Diabetes mellitus type II, controlled On: 97-Wvm-18963:22 Request LIPID PANEL (61753)Indication: Mixed hyperlipidemia On: :22 Request HEPATIC FUNCTION PANEL ([id number])Indication: Mixed hyperlipidemia On: :48 Request LIPID PANEL ([id number])Indication: Mixed hyperlipidemia On: :48 Request Comments: in 3 mos Planned Encounters Medical; [facility] 1 Month FU - On: 12-Sep-2018 8:00 [facility] Fast DO, Sangeetha A Fast DO, Sangeetha A Planned Procedures CTA CHEST W/W/O CONTRAST ([id number])By: On: 04-Sep-2018 Intent Fast DO, Sangeetha A Fast DO, Sangeetha A Overnight Pulse OX ([id number])By: Fast On: 04-Sep-2018 Intent DO, Sangeetha A Fast DO, Sangeetha A Spirometry (71031)By: Fast DO, On: 04-Sep-2018 Intent Sangeetha A Fast DO, Sangeetha A ELECTROCARDIOGRAM, COMPLETE (ECG) On: 04-Sep-2018 Intent (60639)By: Fast DO, Sangeetha A Fast DO, Comments: ekg- 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 and possible recent anterior wall mi- nonspecific st depression Sangeetha A Flu Vaccine (Quadrivalent) 99376Xe: On: 21-Jul-2018 Intent Fast DO, Sangeetha A Fast DO, Sangeetha A SCREENING DIGITAL TOMOSYNTHESIS OF On: 21-Jul-2018 Intent BREAST ([id number])By: Fast DO, Sangeetha A Fast DO, Sangeetha A B 12 Injection, 1000 mcg (J3420)By: On: 31-May-2018 Intent Fast DO, Sangeetha A Fast DO, Sangeetha A Comments: Lot#[id number] EXP:[id number] given:left deltoid Given By: clarita craig ABN signed CT - Abdomen (IV Contrast Needed)By: On: 31-May-2018 Intent Fast DO, Sangeetha A Fast DO, Sangeetha A Doppler Ultrasound OtherBy: Fast DO, On: 19-May-2018 Intent Sangeetha A Fast DO, Sangeetha A Comments: left arm ULTRASOUND OF LIVER (60652)By: On: 24-Feb-2018 Intent Jennifer Rios MD PFT - CompleteBy: Fast DO, Sangeetha A On: 21-Oct-2017 Intent Fast DO, Sangeetha A Comments: at [facility] SCREENING DIGITAL TOMOSYNTHESIS OF On: 21-Oct-2017 Intent BREAST (09732)By: Fast DO, Sangeetha A Comments: end oct Fast DO, Sangeetha A EsophagramBy: Fast DO, Sangeetha A Fast On: 21-Oct-2017 Intent DO, Sangeetha A Comments: with 12 mm tablet ELECTROCARDIOGRAM, COMPLETE (ECG) On: 21-Oct-2017 Intent (77897)By: Fast DO, Sangeetha A Fast DO, Sangeetha A Flu Vaccine (Quadrivalent) 39836Hu: On: 07-Jun-2017 Intent Fast DO, Sangeetha A Fast DO, Sangeetha A Comments: InfluenzaLot #[id number]/13/18Site-L dltd, IMDose prefilled syringeVIS and ABN signedgiven [...] DO, Sangeetha A DEXA SCAN AXIAL SKELETON (21396)By: On: 16-Aug-2016 Intent Fast DO, Sangeetha A Fast DO, Sangeetha A MAMMOGRAM, SCREENING, BOTH BREAST On: 16-Aug-2016 Intent (09821)By: Fast DO, Sangeetha A Fast DO, Sangeetha A ELECTROCARDIOGRAM, COMPLETE (ECG) On: 16-Aug-2016 Intent (05052)By: Fast DO, Sangeetha A Fast DO, Sangeetha A Flu Vaccine (Quadrivalent) 66546Su: On: 16-Aug-2016 Intent Fast DO, Sangeetha A Fast DO, Sangeetha A Comments: FLUlot: [id number]/09site:Lt deltoidroute:IMdose:.5mlSHANI, [place] ADMINISTRATION OF INFLUENZA VIRUS On: 16-Aug-2016 Intent VACCINE (G0008)By: Fast DO, Sangeetha A Fast DO, Sangeetha A Ultrasound - ThyroidBy: Fast DO, On: 10-Nov-2015 Intent Sangeetha A Fast DO, Sangeetha A Ultrasound - LiverBy: Fast DO, Sangeetha On: 10-Nov-2015 Intent A Fast DO, Sangeetha A Flu Vaccine (Quadrivalent) 90295Zb: On: 08-Aug-2015 Intent Fast DO, Sangeetha A Fast DO, Sangeetha A Comments: Lot #[id number]-L dltd, IMDose prefilled syringegiven by:SIMONE Jasso and ABN signed MAMMOGRAM, SCREENING, BOTH BREAST On: 08-Aug-2015 Intent (67491)By: Fast DO, Sangeetha A Fast DO, Sangeetha A Ultrasound - ThyroidBy: Fast DO, On: 08-Aug-2015 Intent Sangeetha A Fast DO, Sangeetha A Ultrasound - LiverBy: Fast DO, Sangeetha On: 08-Aug-2015 Intent A Fast DO, Sangeetha A ADMINISTRATION OF PNEUMOCOCCAL On: 01-Nov-2014 Intent VACCINE (G0009)By: Fast DO, Sangeetha A Fast DO, Sangeetha A PNEUM VAC ADLT/IMUMNOSPR, SBC/INTRM On: 01-Nov-2014 Intent (84566)By: Fast DO, Sangeetha A Fast DO, Comments: Lot:[id number]:02/29/16Dose:0.5mgRoute:imSite:l armGiven By:BATSHEVA signed Sangeetha A Ultrasound - LiverBy: Fast DO, Sangeetha On: 05-Jul-2014 Intent A Fast DO, Sangeetha A BILATERAL MAMMOGRAMS (66516)By: Fast On: 05-Jul-2014 Intent DO, Sangeetha A Fast DO, Sangeetha A Ultrasound - ThyroidBy: Fast DO, On: 05-Jul-2014 Intent Sangeetha A Fast DO, Sangeetha A ADMINISTRATION OF INFLUENZA VIRUS On: 05-Jul-2014 Intent VACCINE (G0008)By: Fast DO, Sangeetha A Comments: Influenzalot:[id number]:03/25/2015dose:0.5mLRoute: IMlocation:R armgiven by:marika Fast DO, Sangeetha A FLU VAC, SPLIT, >3 YEARS, INTRAMUSC On: 05-Jul-2014 Intent (18558)By: Tavon DAVIS Sangeetha A Fast DO, Sangeetha A INFUSION, NORMAL SALINE SOLUTION , On: 15-Apr-2014 Intent 250 CC (J7050)By: Angelina Winn CNP Rocephon Injection, 1 Gm (J0696)By: On: 15-Apr-2014 Intent Angelina Winn CNP Comments: Rocephin 1gmLot #[id number]. [id number] in R hand x 1 stick with [...] (IV Contrast On: 08-Jan-2014 Intent Needed)By: Tavon DAVIS, Sangeteha A Fast DO, Sangeetha A ADMINISTRATION OF INFLUENZA VIRUS On: 27-Jul-2013 Intent VACCINE (G0008)By: aTvon DO, Sangeetha A Fast DO, Sangeetha A FLU VAC, SPLIT, >3 YEARS, INTRAMUSC On: 27-Jul-2013 Intent (62915)By: Fast DO, Sangeetha A Fast DO, Sangeetha A Eprescribed prescriptions (G8553)By: On: 04-Jun-2013 Intent Delisa Melendez LPN SPECIMEN HANDLING/TRANSPORT On: 04-Jun-2013 Intent (10273)By: Delisa Melendez LPN INFUSION, NORMAL SALINE SOLUTION , On: 15-Feb-2013 Intent 1000 CC (Special Coverage Comments: 500 cc Instructions Apply. See MCM: 2049) (J7030)By: Jennifer Rios MD HYDRATION IV INFUSION, INIT On: 15-Feb-2013 Intent (01768)By: Jennifer Rios MD Ultrasound - ThyroidBy: Fast DO, On: 19-Jan-2013 Intent Sangeetha A Fast DO, Sangeetha A MAMMOGRAM, SCREENING, BOTH BREASTS On: 19-Jan-2013 Intent (44767)By: Fast DO, Sangeetha A Fast DO, Comments: due in january Sangeetha A Eprescribed prescriptions (G8553)By: On: 19-Jan-2013 Intent Isabella Grigsby Pulse Oximetry (54725)By: Seb, On: 29-Sep-2012 Intent Isabella Comments: 98% [...] MAMMOGRAM, SCREENING, BOTH BREASTS On: 24-Jan-2012 Intent (99725)By: Fast DO, Sangeetha A Fast DO, Sangeetha A TDAP VACCINE >7 IM (13474)By: Fast On: 04-Oct-2011 Intent DO, Sangeetha A Fast DO, Sangeetha A Comments: Lot:[id number]:08/12/13Amt:prefilledRoute:IMSite:right deltGiven By: NATALEE Spence Aerosol Treatment (33441)By: Blanca On: 26-Aug-2011 Intent Jennifer KNIG Pulse Oximetry (00733)By: Blanca On: 26-Aug-2011 Intent Jennifer KING SPECIMEN HANDLING/TRANSPORT On: 23-Jul-2011 Intent (63105)By: Delisa Melendez LPN FLU VAC, SPLIT, >3 YEARS, INTRAMUSC On: 05-Jul-2011 Intent (56463)By: Isabella Grigsby Comments: Lot #[id number]/20/12Site-left deltoidgiven by: Lisa Bello LPN Ultrasound - ThyroidBy: Fast DO, On: 05-Jul-2011 Intent Sangeetha A Fast DO, Sangeetha A MAMMOGRAM, SCREENING, BOTH BREASTS On: 05-Jul-2011 Intent (94081)By: Fast DO, Sangeetha A Fast DO, Sangeetha A ADMINISTRATION OF INFLUENZA VIRUS On: 05-Jul-2011 Intent VACCINE (G0008)By: Isabella Grigsby Eprescribed prescriptions (G8553)By: On: 04-Jun-2011 Intent [address]elli [address] DO CT - Brain/HeadBy: Fast DO, Sangeetha A On: 07-Oct-2010 Intent Fast DO, Sangeetha A Comments: with and without contrast MAMMOGRAM, SCREENING, BOTH BREASTS On: 26-Jun-2010 Intent (38827)By: Fast DO, Sangeetha A Fast DO, Sangeetha A ADMINISTRATION OF INFLUENZA VIRUS On: 26-Jun-2010 Intent VACCINE (G0008)By: Fast DO, Sangeetha A Fast DO, Sangeetha A FLU VAC, SPLIT, >3 YEARS, INTRAMUSC On: 26-Jun-2010 Intent (76926)By: Fast DO, Sangeetha A Fast DO, Comments: Lot:[id number]:12/2010Dose:0.5mlRoute:IMSite:Left DeltoidGiven by: HEIDI Alberto Sangeetha A Ultrasound - ThyroidBy: Fast DO, On: 07-Jan-2010 Intent Sangeetha A Fast DO, Sangeetha A CT - Spine/CervicalBy: Fast DO, On: 15-Dec-2009 Intent Sangeetha A Fast DO, Sangeetha A Comments: 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 -- need to rule out Pulse Oximetry (11106)By: Fast DO, On: 09-Jul-2009 Intent Sangeetha A Fast DO, Sangeetha A Spirometry (63929)By: Fast DO, On: 10-Jul-2009 Intent Sangeetha A Fast DO, Sangeetha A Comments: good effort and curve- mild restriciton Radiology - Chest- PA and LatBy: On: 09-Jul-2009 Intent Fast DO, Sangeetha A Fast DO, Sangeetha A Pulse Oximetry (34474)By: Fast DO, On: 10-Jul-2009 Intent Sangeetha A Fast DO, Sangeetha A Comments: 98 FLU VAC, SPLIT, >3 YEARS, INTRAMUSC On: 09-Jul-2009 Intent (13467)By: Isabella Grigsby Comments: Lot #[id number]-right deltoidDose0.5mlgiven by Juventino Nye LPN IMMUNIZ ADMNIN, 1 VAC, SNGL/COMBO On: 09-Jul-2009 Intent (91076)By: Isabella Grigsby EKG (65098)By: Fast DO, Sangeetha A On: 10-Oct-2008 Intent Fast DO, Sangeetha A Comments: ekg showed sinus tachy,, left axis, no acute st/t wave changes poor r wave progression pvc Echo CompleteBy: Fast DO, Asngeetha A On: 10-Oct-2008 Intent Fast DO, Sangeetha [...] ADMNIN, 1 VAC, SNGL/COMBO On: 10-Jul-2008 Intent (41208)By: Fast DO, Sangeetha A Fast DO, Sangeetha A FLU VAC, SPLIT, >3 YEARS, INTRAMUSC On: 10-Jul-2008 Intent (16919)By: Fast DO, Sangeetha A Fast DO, Comments: injection given in left deltoid, pt tolerated welllot # [id number] Sangeetha A Holter Monitor 24 hrsBy: Fast DO, On: 10-Jul-2008 Intent Sangeetha A Fast DO, Sangeetha A EKG ([id number])By: Marlene Reddy On: 10-Jul-2008 Intent Comments: ekg showed normal sinus rhythym, normal axis, no acute st/t wave changes sinus tach - no acute changes Ultrasound - ThyroidBy: Fast DO, On: 20-Feb-2008 Intent Sangeetha A Fast DO, Sangeetha A CT - Brain/Head (IV Contrast On: 19-Jan-2008 Intent Needed)By: Arpan Irvin DOa A Fast DO, Sangeetha A Nuclear Stress [...] 1000 MCG/ML Injection Solution Ordered: 31-May-2018 Pending Tavon DAVIS, Sangeetha A Fast DOSangeetha A Instructions Name Dates Details SOB (shortness [...] of breath: 2 weeks ago went to [place] sob and she thought maybe her [...] some palps- supposed to see rosetta in [facility] Diagnosis: BMI 31.0-31.9,adult, Nonsmoker, SOB (shortness of breath), Orthopnea, Elevated d-dimer [facility] Visit On: 21-Jul-2018 [...] off metformin and lisinopril andthen went to [place] for couple weeks then had multiple falls sent back to hospital and transferred to [facility] there for few weeks then to [facility] had lots of pt- and doing [...] Patient has been compliant with instructions. Current id End: 01-Mar-2017 9:26 dication use: no side [...] anxiety and depression. Note for Physical exam: [facility] Wellness Physical- she is down 107 [...] from Need for immunizati on against influenza), [facility] WELLNESS, Encounter for screening mammogram for [...] Reason for hospitalization abdominal pain (Went to [facility] on 02/28/15). Hospitalization details include: abnormal [...] previously evaluated by a primary physician (at [facility]- Dr Reyes ). Presentation included lid [...] is helping her mood- has followup in [place] may 04 - her weight down 20 [...] sees heart failure doctor next week at [facility] - -- mood ebs and flows- sees [...] of all the problems -goes back to [facility] on tuesday and psych in 2 [...] savella- also sent her to [facility] End: 22-Nov-2011 21:49 dnt do surgery- it [...] Has been referred to arthritis clinic per basallevar- - her psych meds changed to lamic favian clonazepam and off pristiq and seroquel- prices better- also on celexa- her mood is is reasonable- bp good and weight coming down down 65 piunds in last 5 years and going to weight watchers- and exe rcising- she is still doing counseling - she is seeing basali for back issues- sees rosettatue- she got [...] her). Patient has been compliant with instructions. Currkelly End: 05-Jul-2011 10:28 nt medication use: experiencing [...] seeing Dr Bang- she is seeing Bessy dilauro- who she likes- she is off pristiq- [...] or less). 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 Date: (3/26/10). Note for Follow up, Diagnostic Procedure Results: [...] pounds with her cancer- she saw a educational adviser in [facility] for her tachycardia and they told [...]
--- OUTSIDE RECORDS SUMMARY | 2018-10-21 22:40 | XMS RPT_ITS | Continuity of Care Document ---
:1965 Author Organization [facility] Address [facility] [address] [place] [address] Phone Care Team Providers Name Role Phone [...] 30 {Capsule} Refills: 3 Ordered:05-Jun-2018 DO, Sangeetha AFast [...] 60 {Tablet} Refills: 4 Ordered:21-Jul-2018 DO, Sangeetha AFast DO, Sangeetha A Start [...] 07-Jun-2018 Active Lasix 40 MG Oral Tablet 2 (two) Tablet bid for 30 days Quantity: 30 {Tablet} Refills: [...] days Quantity: 30 {Tablet} Refills: 3 Ordered:14-Aug-2018 Tavon DAVISSangeetha TEGANbud DAVIS Sangeetha A Start : 14-Aug-2018 Active Synthroid 75 MCG Oral Tablet 1 (one) Tablet qd and 2 tabs on tuesday for 90 days Quantity: 102 {Tablet} Refills: 3 Ordered:21-Jul-2018 Tavon DAVISSangeetha TEGANbud DAVIS Sangeetha A Start : 21-Jul-2018 Active Vitamin D3 5000 UNIT Oral Capsule 1 (one) Capsule Capsule qod for 0 days Quantity: 30 {Capsule} Refills: 3 Ordered:01-Mar-2017 Tavon DAVISSangeetha TEGANbud DAVIS Sangeetha A Start : 01-Mar-2017 Active Zofran [...] Quantity: 60 {Tablet} Refills: 3 Ordered:19-May-2018 Long HOUSEHOLD APPLIANCE ASSEMBLER, Amelia L Start : 21-Oct-2017 End : 19-May-2018 Inactive Amoxicillin 875 MG Oral Tablet 1 (one) Tablet bid for 10 days Quantity: 20 {Tablet} Refills: 0 Ordered:21-Oct-2017 Tavon DAVISArpana TEGANbud DO Sangeetha A Start : 21-Oct-2017 End [...] : 25-Jan-2018 End : 19-May-2018 Inactive ERGOCALCIFEROL, 30143MHKM (Oral Capsule) 1 (one) Capsule Capsule twice [...] 10 {Tablet} Refills: 0 Ordered:29-Sep-2012 DO, Sangeetha العراقي DO, Sangeetha A Start : 29-Sep-2012 End : 09-Oct-2012 Inactive LEXAPRO, 10MG (Oral Tablet) 1 qd for 0 days Refills: 0 Ordered:02-Dec-2006, Sangeetha, Sangeetha A End : 02-Dec-2006 Inactive Lisinopril [...] : 23-Jul-2011 End : 02-Aug-2011 Inactive MAXITROL, 3.5-60059-5.1 (Ophthalmic Ointment) apply to eye lids as [...] hs (50 MG) Inactive Comments:Dr. Hankins NYSTATIN, 048847DGQA/ML (Mouth/Throat Suspension) 5cc Suspension 5 times daily [...] days Quantity: 1 {Applicator} Refills: 0 Ordered:26-Jun-2018 Tavon DO, Sangeetha AFast DO, Sangeetha A Start : 19-May-2018 End : 18-Jun-2018 Inactive TRAZODONE HCL, 50MG (Oral Tablet) 1/2 qhs / HS for 0 days Refills: 0 Ordered:02-Dec-2006 DO, Sangeetha AFast DO, Sangeetha A End [...] needed for 0 days Refills: 0 Ordered:02-Dec-2006 Iasbella Grigsby Start : 02-Dec-2006 End : 20-Feb-2008 [...] days Quantity: 90 {Tablet} Refills: 3 Ordered:09-Sep-2008 DO, Sangeetha AFast DO, Sangeetha A Start : 09-Sep-2008 End : 09-Sep-2008 Discontinued CELEXA, 40MG (Oral Tablet) 1 qd for 0 days Refills: 0 Ordered:10-Nov-2015 Paul Morgan Start : 12-May-2012 End : 10-Nov-2015 Discontinued COLACE, 100MG (Oral Capsule) 1 Capsule daily for 0 days Quantity: 30 {Capsule} Refills: 0 Ordered:27-Jul-2013 DO, Sangeetha AFast DO, Sangeetha A Start : 27-Jul-2013 End : 27-Jul-2013 Discontinued EFFEXOR XR, 75MG (Oral Capsule Extended Release 24 Hour) 1 (one) Capsule ER 24HR qd for 0 days Quantity: 90 {Capsule_ER_24HR} Refills: 3 Ordered:09-Sep-2008 DO, Sangeetha Dulce Maria DO, Sangeetha A Start : 09-Sep-2008 End [...] Quantity: 30 {Tablet} Refills: 0 Ordered:19-May-2018 Long HOUSEHOLD APPLIANCE ASSEMBLER, Amelia L Start : 12-May-2012 End : 19-May-2018 Discontinued Comments:This order discontinued per [employer]. ZOFRAN ODT, 4MG (Oral Tablet Dispersible) qd prn nausea (4 MG) End : 08-Aug-2015 Discontinued Comments:[facility] Allergies and Adverse Reactions Name [...] Completed ICD- BIventricular Completed Date Value Details 04-Sep-2018 CTA Chest W/WO Contrast Result: Comments: See Note; NOTES: [facility] Imaging Services [address] [place] [address] CTA Chest W/WO Contrast MR#: [id number] Acct: [id number] Name: IFEOMA ASHRAF Rep #: [id number] : 1965 F 53 From: Ziggy Santos MD PCP: Sangeetha Irvin DO Status: REG CLI Study: CTA Chest W/WO Contrast Date of Exam: 09/04/18 Exam# [id number] Ordering Dr: Sangeetha Irvin DO STUDY: CTA CHEST REASON FOR EXAM: Female, 53 years old. Chest pain, elevated d-dimer RADIATION DOSAGE (If Supplied By Facility): CTDIvol = ( 29.93 ) mGy, DLP = ( 662.92 ) mGycm TECHNIQUE: The examination was performe d with the intravenous administration of 75CC ml of Isovue 370 contrast material. Post-processing of the angiographic images was performed, with multiplanar reformation and 3D reconstruction. Individua lized dose optimization techniques were used for this CT. COMPARISON: Previous plain films FINDINGS: Left subclavian pacemaker in satisfactory position, no pneumoth orax or mediastinal shift Normal enhancement of the main pulmonary artery and right and left pulmonary arteries. Normal enhancement of the bilateral peripheral pulmonary arteries. There is no demonstra dani pulmonary embolism. Normal thoracic aorta and visualized great vessels. There is no demonstrated aortic dissection. There is a pericardial effusion with maximum thickness of 1.32 cm. There are ca lcified coronary vessels. There are subcentimeter axillary mediastinal lymph nodes. Normal hilar regions. There is peribronchial thickening. The lungs are well expanded. Normal pulmonary parenchyma. Normal pleura. Normal chest wall structures. There are degenerative changes of thoracic spine. Normal visualized upper abdomen. CT/CTA Chest W/WO Contrast IMPRESSION: No demonstrated PE, or thoracic aortic aneurysm or dissection No acute pulmonary process Pericardial effusion Calcified coronary vessels Degenerative bony changes Electron ically Signed: Kenn Santos MD at 16:19 EST , Service support , CC: Sangeetha Irvin DO Cost Specialist: Signed 14-Jul-2018 Chest PA and Lateral Result: Comments: See Note; NOTES: [facility] Imaging Services [address] [facility] [place] [address] Chest PA and Lateral MR#: [id number] Acct: [id number] Name: MARIOWAQASIFEOMA Ashok Rep #: [id number] : 1965 F 53 From: Dimitris Valderrama DO PCP: Sangeetha Irvin DO Status: REG CLI Study: Chest PA and Lateral Date of Exam: 07/14/18 Exam# [id number] Ordering Dr: Oscar Todd STUDY: X-RAY CHEST REASON FOR EXAM: Female, [...] Dimitris Valderrama DO at 8:47 EDT Tel [phone], Service support , CC: NUNU Todd; Sangeetha Irvin DO Cost Specialist: Signed 10-Jun-2018 Pacemaker Check Result: Comments: See Note; NOTES: [facility] [address] [place] [address] Pacemaker Check Date of Service: 06/09/18908 MR#: [id number] Acct: [id number] Name: IFEOMA ASHRAF Rep #: [id number] : 1965 From: Danica Pickering Age/Sex: 53/F [place] [facility] Status: Signed Billing Codes ICD Device Billing: ICD Dev Prog Eval, Single 06/09/18 0913 <Elec tronically signed by Danica Pickering > Date Danica Pickering 06/10/18 1406<Electronically signed by Boone Ch MD> Cosigner Signat ure: Date (if applicable) Boone Ch MD CC: 08-Jun-2018 Cardiology Visit Report Result: Comments: See Note; NOTES: [facility] [address] [place] [address] OFFICE VISIT Date of Service: 05/31/18 MR#: [id number] Acct: [id number] Name: IFEOMA ASHRAF Rep #: [id number] : 1965 Provider: NUNU Todd Age/Sex: 53/F [place] [facility] Status: Signed with Addenda ADDENDUM by NUNU Todd on 06/01/18 at 0746 Addendum entered and electronic ally signed by LUPE Black 06/01/18 07:46: Patient's outside records from [facility] admission from 04/07/2018 to 04/27/2018 were [...] ultimately discharged home with requested follow-up with [facility] neurology or local neurolo gist in [...] defibrillator (ICD) Z95.810 Generator change 11/13 @ [facility] LUPE Chapman Pacemaker check in February 2018 showed no VT/VF episodes since October 2017. She does not have a routine follow-up scheduled. This will be arranged for her. 3. Nonrheumatic mitral (valve) insufficiency I34.0 Aleida Todd NP-C Her echocardiogram in February 2018 showed moderately severe mitral valve insufficiency. This may be contributing to her shortness of breath on exertion. At this time we will continue to monitor. She was again instructed to contact office if symptoms change and/or worsen. 4. Demand ischemia I24.8 Plan - LUPE Black Her [...] prior to saving. Follow Up 6 Months (STEEL ROLLER) 05/31/18 (GIUSEPPE) 06/01/18 0747 <Electronically signed by [...] ral regurgitation and tricuspid regurgitation. She presented [facility] on March 08, 2018 after being found unresponsive in her bathroom. During this hospitalization she was found to have an acute left axillary and left brachial vein DVT and was started on Eliquis. She presented to [facility] emergency department in March 2018 for altered mental status. Her CT scan prior to ER visit showed possible hygroma versus subacute resolving subdural hematoma. She was transferred to [facility] for further evaluation. These records are [...] 05/31/18 Pulse Rate 100 Intake Visit Reasons: [facility] to [facility] to [facility] to [place] Allergies amitriptyline Adverse Reaction (Severe, Verified 05/31/18 [...] eases classified elsewhere I43 EF is 15% Plan - MYRON BlackC Her echocardiogram in February 2018 showed moderately [...] rter-defibrillator (ICD) Z95.810 Generator change 11/13 @ [facility] LUPE Chapman Pacemaker check in [...] and/or worsen. 4. Karis nd ischemia I24.8 LUPE Hawk Her troponin I [...] Xa inhibitor. 6. Anemia, unspecified type D64.9 LUPE Hawk Her most recent hemoglobin on 05/25/18 was [...] prior to saving. Follow Up 6 Months (STEEL ROLLER) 05/31/18 (GIUSEPPE) Coding Level of Care Code [...] 1556 <Electronically signed by Oscar ANDRADE> Date Oscar griffin Signature: Date (if applicable) CC: Sangeetha Irvin DO 05-Jun-2018 Oncology Visit Report Result: Comments: See Note; NOTES: [facility] [address] [place] [address]. [place] [address] OFFICE VISIT Date of Service: 06/05/18 1314 MR#: [id number] Acct: [id number] Name: TYLOR ASHRAF Dm Pulido Rep #: [id number] : 1965 From: Simeon Gresham MD Age/Sex: 53/F Location: OMD Status: Signed Subjective - Date of Service Date of Service:: 06/05/18 - Chief Complaint Follow up DLBCL - His tory of Present Illness 53-year-old woman was diagnosed with non-Hodgkin's lymphoma, diffuse large B cell, stage IV of the uterine cervix with RN ACUTE CARE/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 She had [...] stem cell transplant in February 2007 at [facility] with complete remission. She is on observation, [facility] in for follow up. - Past Medical/Social [...] Chronic Code Visit Office Visits / Consults: 67609 OV L3 Est 1325 <Electronically signed by Simeon Gresham MD> Date Simeon Gresham MD Cosigner Signature: Date (if applicable) CC: 26-May-2018 Venous Duplex Upper Extremity Result: Comments: See Note; NOTES: [facility] Cardiovascular Services [address] [place] [address] Venous Duplex US, Unilateral 05/25/18 0903 MR#: [id number] Acct: [id number] Name: IFEOMA SILVA Rep #: [id number] : 1965 53 From: Juanjo Russo MD [...] Dictated: 05/25/18 0903 Date Transcribed: 05/26/18 163 Cost Specialist: Signed 06-Apr-2018 Chest 1 View (Portable) Result: Comments: See Note; NOTES: [facility] Imaging Services [address] [place] [address] Chest 1 View (Portable) MR#: [id number] Acct: [id number] Name: IFEOMA ASHRAF Rep #: [id number] : 1965 F 53 From: Levy Lucas DO PCP: Sangeetha Irvin DO Status: PRE ER Study: Chest 1 View (Portable) Date of Exam: 04/06/18 Exam# [id number] Ordering Dr: Dejuan Bacon MD STUDY: X-RAY [...] , CC: Sangeetha Irvin DO; Dejuan Bacon Cost Specialist: Signed 05-Apr-2018 Brain/Head without Contrast Result: Comments: See Note; NOTES: [facility] Imaging Services [address] [place] [address] Brain/Head without Contrast MR#: [id number] Acct: [id number] Name: IFEOMA ASHRAF Rep # : [id number] : 1965 F 53 From: Levy Lucas DO PCP: Sangeetha Irvin DO Status: REG CLI Study: Brain/Head without Contrast Date of Exam: 04/05/18 Exam# [id number] Ordering Dr: Oscar Bartlett MD STUDY : [...] 14:06 EDT Tel , Service support [phone]- [phone], N.B. : The above information has been verbally conveyed by Levy Lucas DO to connected , Covering Physician, on 04/05/2018 14:06:03 (ET). CC: Sangeetha Irvin DO; Oscar Bartlett MD Cost Specialist: Signed 05-Apr-2018 Brain/Head without Contrast Result: Comments: See Note; NOTES: [facility] Imaging Services [address] [place] [address] Brain/Head without Contrast MR#: [id number] Acct: [id number] Name: IFEOMA ASHRAF Rep # : [id number] : 1965 F 53 From: Levy Lucas DO PCP: Sangeetha Irvin DO Status: REG CLI Study: Brain/Head without Contrast Date of Exam: 04/05/18 Exam# [id number] Ordering Dr: Oscar Bartlett MD STUDY : [...] erbally conveyed by Levy Lucas DO to [facility] , [facility] Physician, on 04/05/2018 14:06:03 (ET). Electronically Signed: Levy Lucas DO at 14:06 EDT Tel , Service support [phone]- [phone], N.B. : The above information has been verbally conveyed by Levy Lucas DO to connected , Covering Physician, on 04/05/2018 14:06:03 (ET). CC: Sangeetha Irvin DO; Osacr Bartlett MD Cost Specialist: Signed 31-Mar-2018 Cardiology Visit Report Result: Comments: See Note; NOTES: [facility] [address] [place] [address] OFFICE VISIT Date of Service: 03/31/18 MR#: [id number] Acct: [id number] Name: Ifeoma Ashraf Rep #: [id number] : 1965 Provider: Boone Ch MD Age/Sex: 53/F [place] [facility] Status: Signed HPI HPI Chief [...] who presented to the emergency department at [facility] on 03/08/2018 aft er being found [...] care unit. She was eventually transferred to [facility]. Her major problem at this time [...] Lt brachial Intake Visit Reasons: DC to [facility] 6 Body Corporate Manager Required: No Accompanied by: mother Is patient [...] therapy. I would like to obtain a mix chemist ry profile to be able to appropriately adjust any diuretics. At this juncture it may be prudent to add Lasix 40 mg a day to her current regimen. 2. Presence of implantable cardioverter-defibrillator (I CD) Z95.810 Generator change 11/13 @ [facility] Dr. Ahmadi Plan She does [...] months. 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 (cloth bleaching range tender) Coding Level of Care Code Off vis,est,level [...] Flow Screening Result: Comments: See Note; NOTES: [facility] Cardiovascular Services [address] [place] [address] 11/22/17 0803 MR#: [id number] Acct: [id number] Name: IFEOMA ASHRAF Rep #: [id number] [...] Dictated: 11/22/17 0803 Date Transcribed: 11/22/17 1518 Cost Specialist: Signed 18-Nov-2017 Office Visit Report Result: Comments: See Note; NOTES: [place] [address] [place] [address] OFFICE VISIT Date of Service: 11/17/17 MR#: [id number] Acct: [id number] Patient: IFEOMA ASHRAF Rep #: [id number] : 1965 Provider: Danica Pickering Age/Sex: 52/F [...] n office Interview Reason: scheduled follow up [employer] Photo Operator: [employer] Name: Lan Mckeon VR Model: [id number] Serial #: [id number] Implant Date: 11/10/17 Year(s): 0 Implant Physician: [...] and No drainage Bibiana ds Lead #1 [employer] Photo Operator Lead 1: [employer] Model Lead 1: 7121Q/58 Serial# Lead 1: [id number] Date Implanted Lead 1: 10/10/09 Position Lead [...] Operative Report Result: Comments: See Note; NOTES: [facility] Medical Records Department [address] [place] [address] Operative Report 11/10/17 1148 MR#: [id number] Acct: [id number] Name: SALOME ASHRAF Rep #: [id number] : 1965 52 From: Lior Ahmadi MD PCP: Sangeetha Irvin DO Status: REG [place] Y Location: [facility] Operative Report Date of Procedure: 11/10/17 Preoperative diagnosis is device at end of life for normal battery depletion. Postoperative diagnosis same as above. After informed consent and IV antibiotics the patient was brought to the [facility] and the [place] over [...] chart documents provided by the device company field sales representative procedure summary. 11/10/17 1150 <Electronically signed by Lior Ahmadi MD > Date Lior Ahmadi MD CC: Sangeetha Irvin DO; Lior Ahmadi MD Signed 03-Nov-2017 Office Visit Report Result: Comments: See Note; NOTES: [facility] [address] [facility] [place] [address] OFFICE VISIT Date of Service: 11/03/17 MR#: [id number] Acct: [id number] Patient: IFEOMA ASHRAF Rep #: [id number] : 1965 Provider: Danica Pickering Age/Sex: 52/F [place] [facility] Status: Signed Comments Summary Comments: [...] in office Interview Reason: routine follow up [employer] Photo Operator: [employer] Name: Current VR Model: 1211-36Q ICD Serial #: [id number] Implant Date: 10/10/09 Year(s): 8 Implant Physician: [...] Model Lead 1: 7121Q/58 Serial# Lead 1: [id number] Date Implanted Lead 1: 10/10/09 Position Lead [...] automatic cardioverter/defibrillator (AIC D) Z95.810 10/06/2009 @ [facility] 2. Cardiomyopathy in other diseases classified elsewhere I43 11/03/17 1251 <Electronically signed by Danica Pickering > Date Danica Pickering 11/03/17 1648<Electronically signed by Boone Ch MD> Junior Signature: Date (if applicable) Boone Ch MD CC: 03-Nov-2017 Cardiology Visit Report Result: Comments: See Note; NOTES: [facility] [place] [address] OFFICE VISIT Date of Service: 11/03/17 MR#: [id number] Acct: [id number] Name: IFEOMA ASHRAF Rep #: [id number] : 1965 Provider: Boone Ch MD Age/Sex: 52/F [place] [facility] Status: Signed HPI HPI Details: [...] 25 to 29 (25% per echo 03/11/2015) [facility] Medical History Type 2 diabetes mellitus [...] of automatic cardioverter/defibrillator (AICD) Z95.810 10/06/2009 @ [facility] Plan She is status post ICD [...] was also being followed up at the [facility]. She is also on spironolactone [...] and Lateral Result: Comments: See Note; NOTES: [facility] Imaging Services [address] [place] [address] Chest PA and Lateral MR#: [id number] Acct: [id number] Name: IFEOMA ASHRAF Rep #: [id number] : 1965 F 52 From: Dimitris Valderrama DO PCP: Sangeetha Irvin DO Status: PRE [place] Study: Chest PA and Lateral Date of Exam: 11/03/17 Exam# [id number] Ordering Dr: Boone Ch MD STUDY: X-RAY [...] Dimitris Valderrama DO at 18:21 EST Tel [phone], Se rvice support , CC: Boone Ch MD; Sangeetha Irvin DO Cost Specialist: Signed 14-Oct-2017 Office Visit Report Result: Comments: See Note; NOTES: [address] [place] [address] OFFICE VISIT Date of Service: 10/12/17 MR#: [id number] Acct: [id number] Patient: IFEOMA ASHRAF Rep #: [id number] : 1965 Provider: Danica Pickering Age/Sex: 52/F [place] [facility] Status: Signed Comments Summary Comments: Single Chamber ICD Evaluation: Interrogation shows No VT/VF episodes since . No Alerts noted. Left pectoral pocket/incision w/o s/s of infection or erosion. Pt offers no cardiac complaints. Presenting rhythm shows Sinus Tachycardia @ 105 bpm. Left pectoral pocket/incision w/o s/s of infection or erosion. OPTICAL INSTRUMENT INSPECTOR=0%. Battery longevity approx 2.9 mos. At device check in June device showed longevity of 14 mos. D/T longevity decreasing quickly pt scheduled for ICD generator el gilliam with Dr. Ahamdi on 11/10/17 @ [facility]. Lead impedances, sensing and pace/sense threshold remain stable. No parameter changes made. Counters cleared. Pt scheduled for o.v and teaching on 11/03/17 and ICD g enerator change on 11/10/17. Device Device Date Interviewed: 10/12/17 Follow- up Location: in office Interview Reason: routine follow up [employer] Photo Operator: 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 Model Lead 1: 7121Q/58 Serial# Lead 1: [id number] Date Implanted Lead 1: 10/10/09 Position Lead [...] IV Contrast Result: Comments: See Note; NOTES: [facility] Imaging Services [address] [place] [address] Abdomen WITH IV Contrast MR#: [id number] Acct: [id number] Name: IFEOMA ASHRAF Rep #: [id number] : 1965 F 52 From: Carl Vincent MD PCP: Sangeetha Irvin DO Status: REG CLI Study: Abdomen WITH IV Contrast Date of Exam: 06/15/17 Exam# [id number] Ordering Dr: Analisa Conway MD STUDY: CT [...] CC: Analisa Conway MD; Sangeetha Irvin DO Cost Specialist: Signed 15-Jun-2017 Spine Cervical without Contras Result: Comments: See Note; NOTES: [facility] Imaging Services [address] [place] [address] Spine Cervical without Contras MR#: [id number] Acct: [id number] Name: IFEOMA ASHRAF Radha p #: [id number] : 1965 F 52 From: Zev Mandujano MD PCP: Sangeetha Irvin DO Status: REG CLI Study: Spine Cervical without Contras Date of Exam: 06/15/17 Exam# [id number] Ordering Dr: Analisa Conway MD STUDY: CT [...] CC: Analisa Conway MD; Sangeetha Irvin DO Cost Specialist: Signed 10-Feb-2017 Spine Lumbar without Contrast Result: Comments: See Note; NOTES: [facility] Imaging Services [address] [place] [address] Verdana 4d Spine Lumbar without Contrast MR#: [id number] Acct: [id number] Name: MARISEL ASHRAF Rep #: [id number] : 1965 F 51 From: Brian Gill MD PCP: Sangeetha Irvin DO Status: REG CLI Study: Spine Lumbar without Contrast Date of Exam: 02/10/17 Exam# [id number] Ordering Dr: Analisa Carr i, MD STUDY: [...] CC: Analisa Conway MD; Sangeetha Irvin DO Cost Specialist: Signed 20-Jan-2017 Liver Result: Comments: See Note; NOTES: [facility] Imaging Services [address] [facility] [place] [address] Verdana 4d Liver MR#: [id number] Acct: [id number] Name: IFEOMA ASHRAF Rep #: [id number] : 1965 F 51 From: Vincent Bui DO PCP: Sangeetha Irvin DO Status: REG CLI Study: Liver Date of Exam: 01/20/17 Exam# [id number] Ordering Dr: Sangeetha Irvin DO STUDY: ABDOMINAL [...] Vincent Bui DO at 23:43 EDT Tel [phone], Service support , CC: Sangeetha Irvin DO Cost Specialist: Signed 20-Jan-2017 Thyroid Result: Comments: See Note; NOTES: [facility] Imaging Services [address] [place] [address] Verdana 4d Thyroid MR#: [id number] Acct: [id number] Name: IFEOMA ASHRAF Rep #: [id number] : 1965 F 51 From: Jin Rolon PCP: Sangeetha Irvin DO Status: REG CLI Study: Thyroid Date of Exam: 01/20/17 Exam# [id number] Ordering Dr: Sangeetha Irvin DO STUDY: THYROID [...] Service support , CC: Sangeetha Irvin DO Cost Specialist: Signed 17-Nov-2016 Dexa Bone Density Study (HP) Result: Comments: See Note; NOTES: [facility] Imaging Services [address] [place] [address] Verdana 4d Dexa Bone Density Study (HP) MR#: [id number] Acct: [id number] Name: SEAN HARPAL Pulido Rep #: [id number] : 1965 F 51 From: Prashant Delgadillo MD PCP: Sangeetha Irvin DO Status: REG CLI Study: Dexa Bone Density Study (HP) Date of Exam: 11/17/16 Exam# [id number] Ordering Dr: Sangeetha Irvin DO STUDY: DUAL [...] Prashant Delgadillo MD at 10:52 EST Tel [phone], Service support [phone], CC: Sangeetha Irvin DO Cost Specialist: Signed 17-Nov-2016 SCREENING MAMM (CAD), BILAT Result: Comments: See Note; NOTES: [facility] Imaging Services [address] [place] [address] Verdana 4d SCREENING MAMM (CAD), BILAT MR#: [id number] Acct: [id number] Name: SALOME ASHRAF Rep #: [id number] : 1965 F 51 From: Prashant Delgadillo MD PCP: Sangeetha Irvin DO Status: REG CLI Study: SCREENING MAMM (CAD), B[place]ISSETTE Date of Exam: 11/17/16 Exam# [id number] Ordering Dr: Gary Irvin DO MAMMOGRAPHY - [...] biopsy of a clinically suspiciou s abnormality. [id number] Electronically Signed: Prashant Delgadillo MD at 12:55 EST Tel [phone], Service support [phone], CC: Sangeetha Irvin DO Cost Specialist: Signed 17-Nov-2016 SCREENING MAMM (CAD), BILAT Result: Comments: See Note; NOTES: [facility] Imaging Services [address] [place] [address] Verdana 4d SCREENING MAMM (CAD), BILAT MR#: [id number] Acct: [id number] Name: SALOME ASHRAF Rep #: [id number] : 1965 F 51 From: Prashant Delgadillo MD PCP: Sangeetha Irvin DO Status: REG CLI Study: SCREENING MAMM (CAD), BILAT Date of Exam: 11/17/16 Exam# [id number] Ordering Dr: Gary Irvin DO ADDENDUM by [...] delay biopsy of a clinically suspicious abnormality. [id number] Electronically Signed: Prashant Delgadillo MD at 13:07 EST Tel [phone], Service support [phone], 11/17/16 1315 Date cc: Sangeetha Irvin DO [...] delay biopsy of a clinically suspicious abnormality. [id number] Electronically Signed: Prashant Delgadillo MD at 12:55 EST Tel [phone], Ser vice support [phone], CC: Sangeetha Irvin DO Cost Specialist: Signed 19-Dec-2015 Liver Result: Comments: See Note; NOTES: [facility] Imaging Services [address] [place] [address] Verdana 4d Liver MR#: [id number] Acct: [id number] Name: IFEOMA ASHRAF Rep #: [id number] : 1965 F 50 From: Ziggy Santos MD PCP: Sangeetha Irvin DO Status: REG CLI Study: Liver Date of Exam: 12/19/15 Exam# [id number] Ordering Dr: Sangeetha Irvin DO STUDY: ABDOMINAL [...] Service support , CC: Sangeetha Irvin DO Cost Specialist: Signed 19-Dec-2015 Thyroid Result: Comments: See Note; NOTES: [facility] Imaging Services [address] [place] [address] Verdana 4d Thyroid MR#: [id number] Acct: [id number] Name: IFEOMA ASHRAF Lois ep #: [id number] : 1965 F 50 From: Ziggy Santos MD PCP: Sangeetha Irvin DO Status: REG CLI Study: Thyroid Date of Exam: 12/19/15 Exam# [id number] Ordering Dr: Sangeetha Irvin DO STUDY: THYROID [...] at 10:56 EDT Tel , Service support [phone], CC: Sangeetha Irvin DO Cost Specialist: Signed 14-Aug-2015 Bilat Scrn Digital AND CAD Result: Comments: See Note; NOTES: [facility] Imaging Services [address] [place] [address] Verdana 4d Bilat Scrn Digital AND CAD MR#: [id number] Acct: [id number] Name: IFEOMA ASHRAF Rep #: [id number] : 1965 F 50 From: Prashant Delgadillo MD PCP: Sangeetha Irvin DO Status: REG CLI Study: Bilat Scrn Digital AND CAD Date of Exam: 08/14/15 Exam# [id number] Order ing Dr: Sangeetha Irvin DO MAMMOGRAPHY [...] Prashant Delgadillo MD at 10:49 EST Tel [phone], Service support [phone], CC: Sangeetha Irvin DO Cost Specialist: Signed 10-Mar-2015 Emergency Department Summary Result: Comments: See Note; NOTES: [facility] Medical Records Department [address] [place] [address]68 Emergency Department Summary MR#: [id number] Acct: [id number] Name: MALU CRAFTIFEOMA Rep #: [id number] : 1965 49 From: Mayito Roldan DO PCP: Sangeetha Irvin DO Status: [facility] ER DATE OF SERVICE: 02/28/2015 [...] way. Mayito Roldan DO T: NTS JOB: [id number] 03/10/15 2329 <Electronically signed by Mayito Roldan DO> Date Mayito Roldan DO CC: Sangeetha Irvin DO Date Dictated: 02/28/15824 Date Transcribed: 02/28/15824 Cost Specialist: Signed 02-Mar-2015 Emergency Department Summary Result: Comments: See Note; NOTES: [facility] Medical Records Department [address] [place] [address] Emergency Department Summary MR#: [id number] Acct: [id number] Name: IFEOMA RASMUSSEN Rep #: [id number] : 1965 49 From: Alejandro Lopez DO PCP: Sangeetha Irvin DO Status: [facility] ER DATE OF SERVICE: 02/28/2015 [...] The patient has plans to go to [facility] on [address]. I will give her local surgeon's name if she wants to speak with them or she can certainly also speak with Dr. Irvin. CLINICAL IMPRESSION: Biliary colic. Alejandro Lopez DO T: ROCK JOB: [id number] 03/02/15 0743 <Electronically signed by Alejandro Lopez DO> Date Alejandro Lopez DO CC: Sangeetha Irvin DO Date Dictated: 718 Date Transcribed: 02/28/15718 Cost Specialist: Signed 28-Feb-2015 Discharge Instruction Result: Comments: See Note; NOTES: [facility] Medical Records Department [address] [place] [address] Discharge Instruction 02/28/15 0639 MR#: [id number] Acct: [id number] Name: IFEOMA ASHRAF Rep #: [id number] : 1965 49 From: Alejandro Lopez DO [...] problems, contact your doctor. Call [facility] ([phone]) or report to the closest ergency Room. Call 911 if necessary. 02/28/15 0640 <Electronically signed by Alejandro Lopez DO> Date Alejandro Lopez DO Cosign er Signature (If Indicated): Date CC: Sangeetha Irvin DO 28-Feb-2015 Gallbladder Result: Comments: See Note; NOTES: [facility] Imaging Services [address] [place] [address] Ultrasound Report MR#: [id number] Acct: [id number] Name: IFEOMA ASHRAF Rep #: [id number] : 1965 F 49 From: Prashant Delgadillo MD PCP: Sangeetha Irvin DO Status: REG ER Study: Gallbladder Date of Exam: 02/28/15 Exam# [id number] Ordering Dr: Alejandro Lopez DO STUDY: ABDOM [...] Prashant Delgadillo MD at 8:15 EDT Tel [phone], Service support [phone], CC: Alejandro Lopez DO; Sangeetha Irvin DO Cost Specialist: Signed 11-Feb-2015 Spine Cervical without Contras Result: Comments: See Note; NOTES: [facility] Imaging Services [address] [place] [address] CAT Scan Report MR#: [id number] Acct: [id number] Name: IFEOMA ASHRAF Rep #: [id number] : 1965 F 49 From: Prashant Delgadillo MD PCP: Sangeetha Irvin DO Status: REG CLI Study: Spine Cervical without Contras Date of Exam: 02/11/15 Exam# [id number] Ordering Dr: Analisa Conway MD STUDY: CT [...] Prashant Delgadillo MD at 9:49 EDT Tel [phone], Service support [phone], CC: Analisa Conway MD; Sangeetha Irvin DO Cost Specialist: Signed 18-Jul-2014 Bilat Scrn Digital & CAD Result: Comments: See Note; NOTES: [facility] Imaging Services [address] [facility] [address] Breast Imaging Report MR#: [id number] Acct: [id number] Name: IFEOMA ASHRAF Rep # : [id number] : 1965 F 49 From: Prashant Delgadillo MD PCP: Sangeetha Irvin DO Status: REG CLI Exam# [id number] Ordering Dr: Sangeetha Irvin DO MAMMOGRAPHY - [...] Prashant Delgadillo MD at 8:36 EDT Tel [phone], Servi ce support [phone], CC: Sangeetha Irvin DO Cost Specialist: Signed 18-Jul-2014 Liver Result: Comments: See Note; NOTES: [facility] Imaging Services [address] [place] [address] Ultrasound Report MR#: [id number] Acct: [id number] Name: IFEOMA ASHRAF Rep #: [id number] : 1965 F 49 From: Prashant Delgadillo MD PCP: Sangeetha Irvin DO Status: REG CLI Study: Liver Date of Exam: 07/18/14 Exam# [id number] Ordering Dr: aSngeetha Irvin DO STUDY: ABDOMINAL ULTR ASOUND - [...] Prashant Delgadillo MD at 9:34 EDT Tel [phone], Service support [phone], CC: Sangeetha Irvin DO Cost Specialist: Signed 18-Jul-2014 Thyroid Result: Comments: See Note; NOTES: [facility] Imaging Services [address] [place] [address] Ultrasound Report MR#: [id number] Acct: [id number] Name: IFEOMA ASHRAF Rep #: [id number] : 1965 F 49 From: Prashant Delgadillo MD PCP: Sangeetha Irvin DO Status: REG CLI Study: Thyroid Date of Exam: 07/18/14 Exam# [id number] Ordering Dr: Sangeetha Irvin DO STUDY: THYROID [...] Delgadillo MD at 8:41 EDT T el [phone], Service support [phone], CC: Sangeetha Irvin DO Cost Specialist: Signed 05-Feb-2014 Brain/Head W/WO Contrast Result: Comments: See Note; NOTES: [facility] Imaging Services [address] [place] [address] CAT Scan Report MR#: [id number] Acct: [id number] Name: IFEOMA ASHRAF Rep #: [id number] : 1965 F 48 From: Prashant Delgadillo MD PCP: Sangeetha Irvin DO Status: REG CLI Study: Brain/Head W/WO Contrast Date of Exam: 02/05/14 Exam# [id number] Ordering Dr: Sangeetha Irvin DO STUD Y: [...] Prashant Delgadillo MD at 9:19 EDT Tel [phone], Service support [phone], CC: Sangeetha Irvin DO Cost Specialist: Signed Immunization Name Dates Details Influenza (3 years and up) on: 10-Jul-2008 Comments: injection given in left deltoid, pt tolerated welllot # [id number] Influenza (3 years and up) on: 09-Jul-2009 Comments: Lot #[id number]-9/2010Site-right deltoidDose0.5mlgiven by Juventino Nye LPN Family History [...] Value Details :59 BNP,B-Type NATRIURETIC PEPTIDE Comments: [facility] [address] [place], [place], [phone] B-TYPE JACKIE PEP 819.3 pg/mL (Abnormal) Range: 0-100 :59 CBC W/Diff, Automated Comments: [facility] [address] [place], [place], [address] Absolute Lymph 1.08 {X10_3/ul} (Normal) Range: 0.83-4.51 [...] 4.2-5.4 WBC 7.5 K/mm3 (Normal) Range: 4.4-11.0 78-Xhq-091354:59 Comprehensive Metabolic Profil Comments: 'TROP' Serial specimen #1, #2, #3, or #4: 1[facility] [address] [place], [place], [address] GAP 8 (Normal) Range: 5-15 CO2 29.0 [...] A.D.A. criteria.Please note revised GLUCOSE reference range dwhyuuppb95/02/2018. 54-Tqh-770829:59 CPK Total, Creatine Kinase Comments: 'TROP' Serial specimen #1, #2, #3, or #4: [address] [place] [address] [place], [address] CPK TOTAL 30 U/L (Normal) Range: 26-192 83-Sda-566300:59 D-Dimer Quantitative (DVT/PE) Comments: [facility] [address] [place], [address] D-DIMER QUANT 1.44 {FEU/ug/m} (Abnormal) Range: 0.27-0.49 Comments: CRITICAL VALUE VERIFIED. CALLED TO PLQDYMPJ44/10/18 1440 Francois Quinn.RESULTS READ BACK BY SAME .D-Dimer ELEVATED (>0.49): Additional studies and clinicalassessments are indicated to conclude di agnosis of:Deep Vein Thrombosis (DVT) or Pulmonary Embolism (PE) 68-Wvx-921269:59 Troponin-I Comments: 'TROP' Serial specimen #1, #2, #3, or #4: [address] [place] [address] [place], [address] TROPONIN-I 0.030 ng/mL (Normal) Comments: TROPONIN-I EXPECTED VALUES <0.045 Negative 0.045 - 0.590 Consistent with Cardiac Damage > OR = 0.600 Critical Value Not every elevated troponin is indicative of [place]. T hesevalues should be used with clinical judgement in examiningthe patient's clinical picture for diagnosis. To establisha diagnosis of KS versus myocardial injury, there must be ademonstrated rise and/ or fall in the troponin values, inaddition to ischemic symptoms, EKG changes, new regionalwall motion abnormality, and/or angiographical evidence. PLEASE NOTE: REFERENCE RANGES EDITED 02/06/1829-Aug-20187-Lqd-231660:44 ANCA Comments: Is Patient Fasting? [facility] (refer to report for specific site)refer to report for address and phone number Atypical pANCA <1:20 {titer} (Normal) Comments: The atypical pANCA pattern has been observed in asignificant percentage of patients with ulcerative colitis,primary sclerosing cholangitis and autoimmune hepatitis.Performed at: [facility] [id number] Director: Omar Hood PhD, Phone: [phone] PERINUCLEAR Ab <1:20 {titer} (Normal) Comments: The presence of positive fluorescence exhibiting P-ANCA orC-ANCA patterns alone is not specific for the diagnosis ofWegener's Granulomatosis (WG) or microscopic polyangiitis.Decisions about treatment sh ould not be based solely onANCA IFA results. The International ANCA Group Consensusrecommends follow up testing of positive sera with both NH-3 and MPO- ANCA enzyme immunoassays. As many as 5% serumsamp les are positive only by EIA. Ref. AM J Clin Dogile5652;111:507-513. CYTOPLASMIC Ab <1:20 {titer} (Normal) 2-Vtw-840654:44 ANTINUCLEAR ANTIBODIES DIRECT Comments: [facility] (refer to report for specific site)refer to report for address and phone number LASHA-DIRECT Negative (Normal) Comments: Performed at: [facility] [id number] Director: Omar Hood PhD, Phone: [phone] 4-Ffb-796215:44 CPK Total, Creatine Kinase Comments: [facility] [address] [place], [address](084) CPK TOTAL 33 U/L (Normal) Range: 26-192 4-Osj-831647:44 Hemoglobin A1c Comments: [facility] [address] [place], [address] HGB A1C 10.6 % (Abnormal) Range: 4.2-6.3 6-Erq-186930:44 PRANEETH AND PE, Random UR Comments: Is Patient Fasting? [facility] (refer to report for specific site)refer to report for address and phone number NOTE Comment (Normal) Comments: Protein electrophoresis scan will follow via computer,mail, or therapeutic sales specialist delivery. PRANEETH RESULT,U Comment (Normal) Comments: No monoclonality detected. M-SPIKE,UR% Not Observed % (Normal) GAMMA GLOB,U 5.5 % (Normal) BETA GLOB,U 14.2 % (Normal) VQENG-3-GNED,U 10.8 % (Normal) JZHWZ-3-IFZS,U 7.6 % (Normal) ALBUMIN,U 62.0 % (Normal) PROTEIN,UR 27.8 mg/dL (Normal) 6-Mop-324571:44 PRANEETH + Protein Elect, Serum Comments: Is Patient Fasting? [facility] (refer to report for specific site)refer to report for address and phone number NOTE: Comment (Normal) Comments: Protein electrophoresis scan will follow via computer,mail, or therapeutic sales specialist delivery. PRANEETH RESULT,S Comment (Normal) Comments: No monoclonality detected. A/G RATIO 1.2 (Normal) Range: 0.7-1.7 GLOBULIN, TOTAL 2.9 g/dL (Normal) Range: 2.2-3.9 M-SPIKE g/dL (Normal) Comments: Not Observed GAMMA GLOBULIN 0.6 g/dL (Normal) Range: 0.4-1.8 BETA GLOBULIN 1.1 g/dL (Normal) Range: 0.7-1.3 DCPEP-7-CGUF 0.9 g/dL (Normal) Range: 0.4-1.0 HQNTX-9-YPPS 0.3 g/dL (Normal) Range: 0.0-0.4 ALBUMIN 3.4 g/dL (Normal) Range: 2.9-4.4 IMMUNOGL M 103 mg/dL (Normal) Range: 26-217 IMMUNO A 69 mg/dL (Abnormal) Range: 87-352 IMMUNO G 538 mg/dL (Abnormal) Range: 700-1600 PROTEIN,TOTAL 6.3 g/dL (Normal) Range: 6.0-8.5 5-Gov-029053:44 Rheumatoid Factor Comments: [facility] [address] [place], [place], [phone] RHEUMATOID FAC < 10.0 {IU/mL} (Normal) :44 Sjogren's Antibodies A/B Comments: [facility] (refer to report for specific site)refer to report for address and phone number Anti-SS-B < 0.2 {AI} (Normal) Range: 0.0-0.9 Anti-SS-A < 0.2 {AI} (Normal) Range: 0.0-0.9 5-Pfi-352519:44 Thyroid Stim Hormone (TSH) Comments: [facility] [address] [place], [place], [address] TSH 2.71 {uIU/mL} (Normal) Range: 0.358-3.74 :44 Vitamin B12 1303 pg/mL (Abnormal) Comments: [facility] [address] [place], [address] Range: 211-911 :44 Vitamin D,25 Hydroxy Comments: [facility] [address] [facility] [address] [place], [place], [address] Vitamin D 25-OH 62.4 ng/mL (Normal) Range: 29.95-100.01 Comments: Vitamin D 25(OH) Status Range Deficiency <20 ng/mL (50nmol/L) Insuffciency 20 - 30 ng/mL (50 - 75 nmol/L) Sufficiency 30 - 100 ng/mL (75 - 250 nmol/L) Toxicity >100 ng/mL (>250 nmol/L) 2-Rvg-981794:06 Basic Metabolic Profile (BMP) Comments: PLEASE FAX TO DR. CANTU [phone] [address] [place], [place], [phone] GAP 12 (Normal) Range: 5-15 CO2 26.0 [...] A.D.A. criteria.Please note revised GLUCOSE reference range dsjmrawnn24/02/2018. 95-Cgc-81142:22 CBC W/Diff, Automated Comments: BMP TO DULCE TIMMONS.CBCD, TSH, B12 TO DR. SANGEETHA IRVIN.[facility] [address] [place], [place], [address] Absolute Lymph 1.16 {X10_3/ul} (Normal) Range: 0.83-4.51 [...] pg/mL (Normal) Comments: BMP TO DULCE [facility].CBCD, TSH, B12 TO DR. SANGEETHA IRVIN.[facility] [address] [facility] [address] [place], [place], [address] Range: 211-911 53-Lls-90885:20 Basic Metabolic Profile (BMP) Comments: BMP TO DULCE [facility].CBCD, TSH, B12 TO DR. SANGEETHA IRVIN.[facility] [address] [facility] [address] [place], [place], [address] GAP 9 (Normal) Range: 5-15 CO2 27.0 [...] A.D.A. criteria.Please note revised GLUCOSE reference range itydioeit33/02/2018. 13-Tha-05109:20 Thyroid Stim Hormone (TSH) Comments: BMP TO DULCE TIMMONS.CBCD, TSH, B12 TO DR. SANGEETHA IRVIN.[facility] [address] [place], [address] TSH 4.09 {uIU/mL} (Abnormal) Range: 0.358-3.74 37-Grs-622501:23 Basic Metabolic Profile (BMP) Comments: [facility] [address] [place], [address] GAP 7 (Normal) Range: 5-15 CO2 [...] A.D.A. criteria.Please note revised GLUCOSE reference range lyazmktie16/02/2018. 44-Itc-327817:23 BNP,B-Type NATRIURETIC PEPTIDE Comments: [facility] [address] [place], [address] B-TYPE JACKIE PEP 892.7 pg/mL (Abnormal) Range: 0-100 59-Tan-100788:23 CBC W/Diff, Automated Comments: [facility] [address] [place], [address] Absolute Lymph 1.23 {X10_3/ul} (Normal) Range: [...] 4.2-5.4 WBC 7.2 K/mm3 (Normal) Range: 4.4-11.0 78-Tkm-335893:41 CBC W/Diff, Automated Comments: Reason for Laboratory Test .[facility] [address] [place], [place], [address] Absolute Lymph 0.85 {X10_3/ul} (Normal) Range: 0.83-4.51 [...] 4.2-5.4 WBC 5.7 K/mm3 (Normal) Range: 4.4-11.0 64-Sdu-042288:41 Comprehensive Metabolic Profil Comments: Reason for Laboratory Test .Serial Specimen #1, #2 or #3? [facility] [address] [place], [address] GAP 8 (Normal) Range: 5-15 CO2 28.0 [...] A.D.A. criteria.Please note revised GLUCOSE reference range rsowbwpey18/02/2018. 57-Poe-117875:41 LDH 224 U/L (Normal) Comments: Reason for Laboratory Test .Serial Specimen #1, #2 or #3? 1[facility] [address] [facility] [place], [place], [address] Range: 84-246 7-Oxx-201963:41 URINE GENESIS CULTURE-IDENTIFICATN Comments: add to urine in lab; PATIENT NOT FASTINGPERFORMED BY: [facility] Gxgovd0616 [facility] [id number] Information: SRC:JUAN ([id number]) Result 1 ENTEAE (Abnormal) Comments: Enterobacter aerogenes1,000 [...] 2253 10.0 ng/mL (Abnormal) Range: 0.0-8.3 Comments: Screenhero ECLIA methodologyPerformed at: gis.to - [facility] [address] [id number] Director: Omar Hood PhD, Phone: [phone] :46 CBC W/Diff, Automated Comments: [facility] [address], [place], [address] Absolute Lymph 0.95 {X10_3/ul} (Normal) Range: 0.83-4.51 [...] 4.2-5.4 WBC 5.6 K/mm3 (Normal) Range: 4.4-11.0 15-Lyt-99755:46 Comprehensive Metabolic Profil Comments: PLEASE ADD T3F T4F TO BLOOD FROM 05-25-[address] [place], [address] GAP 9 (Normal) Range: 5-15 CO2 28.0 [...] A.D.A. criteria.Please note revised GLUCOSE reference range iuhaydizu67/02/2018. :46 Digoxin Level Comments: [facility] [address] [place], [phone] DIG 0.71 ng/mL (Abnormal) Range: 0.80-2.00 :46 Free T3 Comments: PLEASE ADD T3F T4F TO BLOOD FROM 05-25-18 TH 5 [facility] [address] [place], [address] FREE T3 3.2 pg/mL (Normal) Range: 2.18-3.98 :46 Hemoglobin A1c Comments: [place] [address] [place], [address] HGB A1C 5.4 % (Normal) Range: 4.2-6.3 :46 Lipid Profile Comments: PLEASE ADD T3F T4F TO BLOOD FROM 05-25-18 [facility] 5 [facility] [address] [place], [address] VLDL 22 mg/dL (Normal) Range: 5-40 LDL [...] High Risk :46 Microalb:Creat Ratio,Random UR Comments: [facility] [address] [place], [address] MALB:CREAT 7.8 {mg/g_CRE} (Normal) MICROALBUMIN,UR 10.9 mg/L (Normal) UR CREAT 139.00 mg/dL (Normal) :46 T4 Free Direct Comments: PLEASE ADD T3F T4F TO BLOOD FROM 05-25-[address] [place] [address] [address] [place], [address] T4 FREE DIRECT 1.11 ng/dL (Normal) Range: 0.76-1.46 :46 Thyroid Stim Hormone (TSH) Comments: PLEASE ADD T3F T4F TO BLOOD FROM 05-25-18 THG2 5 [facility] [address] [place], [address] TSH 0.31 {uIU/mL} (Abnormal) Range: 0.358-3.74 :46 Urinalysis, Complete Comments: How was Urine Obtained? CLEAN [facility] [address] [place], [address] MUCUS, URINE 0 SEEN {/hpf} (Normal) [...] :46 Vitamin B12 368 pg/mL (Normal) Comments: [facility] [address] [place], [address] Range: 211-911 93-Hox-63243:46 Vitamin D,25 Hydroxy Comments: [facility] [address] [place], [address] Vitamin D 25-OH 64.5 ng/mL (Normal) Range: 29.95-100.01 Comments: Vitamin D 25(OH) Status Range Deficiency <20 ng/mL (50nmol/L) Insuffciency 20 - 30 ng/mL (50 - 75 nmol/L) Sufficiency 30 - 100 ng/mL (75 - 250 nmol/L) Toxicity >100 ng/mL (>250 nmol/L) 63-Ill-971495:52 Urinalysis, Complete Comments: Order Date: 04/06/18Has pt arrived? YHow was Urine Obtained? [facility] [address] [place] [place], [address] HYALINE CAST 5-10 SEEN {/lpf} (Normal) [...] (Normal) CLARITY Cloudy (Normal) COLOR Yellow (Normal) 20-Glr-290862:30 CBC W/Diff, Automated Comments: [facility] [address] [place], [address] OVALOCYTE RARE (Normal) MACROCYTE 1+ (Normal) [...] 4.2-5.4 WBC 9.1 K/mm3 (Normal) Range: 4.4-11.0 38-Awe-348633:30 Comprehensive Metabolic Profil Comments: [facility] [address] [place], [address] GAP 12 (Normal) Range: 5-15 CO2 30.0 [...] Comments: Please note revised GLUCOSE reference range zpuqxkfck33/02/2018. 91-Naq-800717:30 Lactic Acid Comments: Yes/No query for Sepsis Lactate Rule [facility] [address] [place], [address] LACTIC ACID 6.7 mmol/L (Abnormal) Range: 0.4-2.0 Comments: Critical Result(s) Called Lisa RIVERA at: 20:23: by: BRITTANY TORRES 51-Skw-027776:30 Partial Thromboplast Time Comments: [facility] [address] [place], [address] PTT 41.3 s (Abnormal) Range: 24.1-36.2 27-Kcj-256865:30 Prothrombin Time w/INR Comments: [facility] [address] [place], [address] INR 2.3 (Normal) PROTIME 25.6 s (Abnormal) Range: 11.7-14.9 05-Qgp-999752:30 Troponin-I Comments: [facility] [address] [place], [address] TROPONIN-I 0.046 ng/mL (Abnormal) Comments: TROPONIN-I EXPECTED VALUES <0.045 Negative 0.045 - 0.590 Consistent with Cardiac Damage > OR = 0.600 Critical Value Not every elevated troponin is indicative of [place]. T hesevalues should be used with clinical judgement in examiningthe patient's clinical picture for diagnosis. To establisha diagnosis of [place] versus myocardial injury, there must be ademonstrated rise and/ or fall in the troponin values, inaddition to ischemic symptoms, EKG changes, new regionalwall motion abnormality, and/or angiographical evidence. PLEASE NOTE: REFERENCE RANGES EDITED 02/06/1805-Apr-[id number] Ammonia Comments: [facility] [address] [place], [address] AMMONIA 20.0 umol/L (Normal) Range: 11-32 [id number] CBC-Complete Blood Cnt No Diff Comments: [facility] [address] [place], [address] MPV 10.6 fL (Normal) Range: [...] 4.2-5.4 WBC 6.6 K/mm3 (Normal) Range: 4.4-11.0 [id number] Comprehensive Metabolic Profil Comments: [facility] [id number] [place], [place], [id number] GAP 9 (Normal) Range: 5-15 CO2 35.0 [...] Comments: Please note revised GLUCOSE reference range lvtndhfbi37/02/2018. 67-Kvw-539701:08 Differential Comment Comments: [facility] Stxlgqhfmw7460 [address] [place], [phone] SMEAR COMMENT COMMENT (Normal) Comments: SLIDE SCANNED - 1+ ANISO NOTED. 30-Jvk-95792:55 Urinalysis, Complete Comments: How was Urine Obtained? [facility] Yioaizodky7397 [place], [address] AMORPHOUS 2+ (Normal) HYALINE CAST 5-10 SEEN [...] (Normal) CLARITY Cloudy (Normal) COLOR Yellow (Normal) 04-Sue-72992:55 Urine Drug Screen (VISTA) Comments: [facility] Fktdlidzcd1586 [address] [place], [place], [phone] TO BE CONFIRMED (Normal) Comments: CONFIRMATORY TESTING [...] TESTING MUST BE ORDERED SEPARATELY. USE TESTMNEMONIC: [facility] 39-Vyv-85968:59 Bedside Glucose Comments: [facility] LaboratoryPoint of Xxaa0548 [place] [address] BEDSIDE GLU 169 mg/dL (Abnormal) Range: 70-110 Comments: MANAGEMENT OF PATIENT CARE PER NURSING PROTOCOL 20-Yui-56651:35 Basic Metabolic Profile (BMP) Comments: [facility] Stqefvvhnl2400 [address] [place], [phone] GAP 16 (Abnormal) Range: 5-15 CO2 15.0 mmol/L (Abnormal) Range: 21.0-32.0 CL 104 mmol/L (Normal) Range: 98-107 K 6.2 mmol/L (Abnormal) Range: 3.5-5.1 Comments: Critical Result(s) Called at: 01:06:28 03/08/2018 by:ANSLEY STANFORD,WEATHERIZATION DIRECTOR NA 135 mmol/L (Abnormal) Range: 136-145 CA [...] criteria.Please note revised GLUCOSE reference range /02/2018. 92-Mly-113158:59 Acetaminophen (Tylenol) Level Comments: [facility] Ekuicprrcf5964 [address] [place], [id number] ACETAMINOPHEN 4.9 ug/mL (Abnormal) Range: 10.0-30.0 Comments: Slight Icterus, Result may be falsely decreased. :59 Acetone Serum Comments: [facility] Bnsvibyiix8242 [address] [place], [phone] ACETONE SERUM NEGATIVE (Normal) 24-Tza-384975:59 Alcohol, Blood (Medical)-Serum Comments: [facility] Xyqmvtndpk2752 [place], [address] SERUM ETOH 8.0 mg/dL (Normal) Comments: The serum:whole blood ethanol ratio is approximately 1.14and varies slightly with hematocrit.Medical Alcohol reference interval and critical value innon-tolerant individuals; 50 - 100 Impairment 100 Intoxication 100 - 250 Severe Poisoning 250 - 400 Deep/possible fatal coma 84-Vce-557583:59 Digoxin Level Comments: [facility] Afrcdretoi0832 [place], [address] DIG 0.32 ng/mL (Abnormal) Range: 0.80-2.00 72-Fxq-357669:59 Lactic Acid Comments: Yes/No query for Sepsis Lactate Rule [facility] Cnssbavnfe7202 [place], [address] LACTIC ACID 12.4 mmol/L (Abnormal) Range: 0.4-2.0 Comments: Critical Result(s) Called at: 00:52:58 03/08/2018 by:ANSLEY OWENSWEATHERIZATION DIRECTOR 83-Idk-988814:59 Partial Thromboplast Time Comments: [facility] Mzsiwpaaqt6934 [place], [address] PTT 33.7 s (Normal) Range: 24.1-36.2 63-Hkf-682045:59 Prothrombin Time w/INR Comments: [facility] Zmjbkysujh1438 [place], [address] INR 2.4 (Normal) PROTIME 26.4 s (Abnormal) Range: 11.7-14.9 79-Dbi-578096:59 Salicylate Comments: [facility] Gsuvhhrujg8042 [place], [address] SALICYLATE < 1.7 mg/dL (Abnormal) Range: 2.8-20.0 Comments: Slight Icterus, Result may be falsely decreased. 50-Txg-073331:02 Blood Gases by [facility] Comments: [facility] LaboratoryPoint of Zvli7597 [place] [address] SO2 ISTAT 99 % (Normal) Range: [...] Radial (Normal) BLD GAS TYPE ART (Normal) 72-Mih-319421:52 Bedside Glucose Comments: [facility] LaboratoryPoint of Vvcr1888 [address] [place], [place] [address] BEDSIDE GLU 214 mg/dL (Abnormal) Range: 70-110 Comments: MANAGEMENT OF PATIENT CARE PER NURSING PROTOCOL 31-Yfm-335370:37 Basic Metabolic Profile (BMP) Comments: [facility] Gcgaesdpew2048 [facility] [address]. [place], [place], [address] GAP 19 (Abnormal) Range: 5-15 CO2 11.0 [...] A.D.A. criteria.Please note revised GLUCOSE reference range lnrwzevui28/02/2018. :37 CBC W/Diff, Automated Comments: [facility] Oahudadtow6667 [address] [place], [place], [address] CRENATED RBC 1+ (Normal) ANISO 1+ (Normal) [...] K/mm3 (Normal) Range: 4.4-11.0 :37 Lipase Comments: [facility] Cfsipqlsze4447 [place], [address] LIPASE 86 U/L (Normal) Range: 73-393 89-Jgh-800293:37 Liver Profile Comments: [facility] Fmbhdixfqv5803 [place], [address] D BILI 1.07 mg/dL (Abnormal) Range: 0.00-0.30 T BILI 2.40 mg/dL (Abnormal) Range: 0.20-1.00 ALT 120 U/L (Abnormal) Range: 13-56 ALK P 94 U/L (Normal) Range: 45-117 AST 149 U/L (Abnormal) Range: 15-37 Comments: Moderate Hemolysis, Result may be falsely increased. GLOB 2.9 g/dL (Normal) Range: 2.2-4.2 ALB 3.0 g/dL (Abnormal) Range: 3.2-5.0 T PROT 5.9 g/dL (Abnormal) Range: 6.4-8.2 :37 Magnesium Comments: [facility] Ubnfxteyvl8434 [facility] [place], [address] MG 2.0 mg/dL (Normal) Range: 1.6-2.6 Comments: Moderate Hemolysis, Result may be falsely increased. :37 Troponin-I Comments: [address] [place], [address] TROPONIN-I 0.081 ng/mL (Abnormal) Comments: TROPONIN-I EXPECTED VALUES <0.045 Negative 0.045 - 0.590 Consistent with Cardiac Damage > OR = 0.600 Critical Value Not every elevated troponin is indicative of [place]. T hesevalues should be used with clinical judgement in examiningthe patient's clinical picture for diagnosis. To establisha diagnosis of [place] versus myocardial injury, there must be ademonstrated rise and/ or fall in the troponin values, inaddition to ischemic symptoms, EKG changes, new regionalwall motion abnormality, and/or angiographical evidence. PLEASE NOTE: REFERENCE RANGES EDITED 02/06/1824-Feb-20184-Lgs-933731:21 CMV ANTIBODY (98898) Comments: today; PATIENT NOT FASTINGPERFORMED BY: [facility] [id number] Cytomegalovirus (CMV) Ab, IgG <0.60 U/mL (Normal) Range: 0.00-0.59 Comments: Negative <0.60 Equivocal 0.60 - 0.69 Positive >0.69 5-Myb-270065:21 HEPATITIS PANEL (22269) Comments: today; PATIENT NOT FASTINGPERFORMED BY: [facility] [id number] Hep C Virus Ab <0.1 {s/co_ratio} (Normal) Range: 0.0-0.9 Comments: Negative: < 0.8 Indeterminate: 0.8 - 0.9 Positive: > 0.9 . The CDC recommends that a positive HCV antibody result be followed up with a HCV Nucleic Acid Amplification test (883866). Hep B Core Ab, IgM Negative (Normal) HBsAg Screen Negative (Normal) Hep A Ab, IgM Negative (Normal) 8-Cot-533922:21 EBV Panel (86607) Comments: today; PATIENT NOT FASTINGPERFORMED BY: [facility]6370 [facility] [id number] Interpretation: SPRCS (Normal) Comments: EBV Interpretation Chart [...] <36.0 Equivocal 36.0 - 43.9 Positive >43.9 60-Yzu-096424:19 CBC W/Diff, Automated Comments: Order Date: 02/23/18Order Info: 0184-1 - CBCDOrder Info: 25495-4 - [facility] Qkynrcpion4129 [address] [place], [place], [address] MACROCYTE 1+ (Normal) ANISO RARE (Normal) Absolute [...] 4.2-5.4 WBC 6.9 K/mm3 (Normal) Range: 4.4-11.0 71-Wss-786550:19 Comprehensive Metabolic Profil Comments: Order Date: 02/23/18Order Info: 0786-1 - CMPOrder Info: 1798-8 - AMYOrder Info: 3040-3 - [facility] Hcnajoguta6058 [place], [address] GAP 11 (Normal) Range: 5-15 CO2 25.0 [...] criteria.Please note revised GLUCOSE reference range /02/2018. 36-Hbn-823066:19 Erythrocyte Sed Rate Comments: Order Date: 02/23/18Order Info: 0184-1 - CBCDOrder Info: 63670-2 - [facility] Ypkjiapgbn7744 [place], [address] SED RATE 16 mm/h (Normal) Range: 0-30 43-Xzt-345854:19 Lipase (83477) Comments: Order Date: 02/23/18Order Info: 0786- 1 - CMPOrder Info: 1798-8 - AMYOrder Info: 3040-3 - [facility] Lhvfigcztw1860 [address] [place], [address] LIPASE 92 U/L (Normal) Range: 73-393 32-Whe-805985:19 Amylase (80976) Comments: Order Date: 02/23/18Order Info: 0786- 1 - CMPOrder Info: 1798-8 - AMYOrder Info: 3040-3 - [facility] Jvavhxctds9465 [address] [place], [phone](973) ARIAN 27 U/L (Normal) Range: 25-115 9-Nxe-402569:15 Amylase Comments: CMP, CBCD IS FOR DR ORONA IS FOR [facility] Izhrpbwlvp4558 [address] [place], [address](979) ARIAN 29 U/L (Normal) Range: 25-115 7-Jcp-401962:15 CBC W/Diff, Automated Comments: CMP, CBCD IS FOR DR ORONA IS FOR [facility] Yvlsotbwql5294 [place], [address] ANISO 1+ (Normal) Absolute Lymph 0.41 {X10_3/ul} [...] 4.2-5.4 WBC 5.3 K/mm3 (Normal) Range: 4.4-11.0 4-Sly-686581:15 Comprehensive Metabolic Profil Comments: CMP, CBCD IS FOR DR ORONA IS FOR DR Benjamindequan [facility] Qcvoyiribg1021 [place], [place], [address] GAP 9 (Normal) Range: 5-15 CO2 27.0 [...] criteria.Please note revised GLUCOSE reference range /02/2018. 3-Wuf-799273:15 Digoxin Level Comments: [facility], CBCD IS FOR DR ORONA IS FOR [facility] Xoifpatjgn7735 [address] [place], [place], [phone] DIG 0.92 ng/mL (Normal) Range: 0.80-2.00 6-Rue-334216:15 Lipase Comments: [facility], CBCD IS FOR DR ORONA IS FOR [facility] Sgsgowflnz6357 [address] [place], [place], [address] LIPASE 101 U/L (Normal) Range: 73-393 8-Trk-250092:15 Lipid Profile Comments: [facility], CBCD IS FOR DR ORONA IS FOR [facility] Fisajqzytp5307 [address] [place], [place], [address] VLDL 15 mg/dL (Normal) Range: 5-40 LDL [...] 200-240 mg/dL Borderline >240 mg/dL High Risk 1-Xxz-603295:15 Magnesium Comments: CMP, CBCD IS FOR DR ORONA IS FOR [facility] Hnxnowrkir88[address], [address] MG 1.8 mg/dL (Normal) Range: 1.6-2.6 7-Naw-493382:15 Microalb:Creat Ratio,Random UR Comments: CMP, CBCD IS FOR DR ORONA IS FOR [facility] Sswgurzhtk5394 [place], [address] MALB:CREAT 34.3 {mg/g_CRE} (Abnormal) MICROALBUMIN,UR 58.6 mg/L (Normal) UR CREAT 171.00 mg/dL (Normal) 4-Yaf-106031:15 Thyroid Stim Hormone (TSH) Comments: CMP, CBCD IS FOR DR ORONA IS FOR [facility] Tomustlral0280 [place], [address] TSH 1.84 {uIU/mL} (Normal) Range: 0.358-3.74 3-Wxt-397675:15 Vitamin B12 383 pg/mL (Normal) Comments: CMP, CBCD IS FOR DR ORONA IS FOR [facility] Eysvumohbf2996 [place], [address] Range: 211-911 5-Mmo-483317:15 Vitamin D,25 Hydroxy Comments: CMP, CBCD IS FOR DR ORONA IS FOR [facility] Nsircdwfcr8589 [place], [address] Vitamin D 25-OH 72.0 ng/mL (Normal) Range: 29.95-100.01 Comments: Vitamin D 25(OH) Status Range Deficiency <20 ng/mL (50nmol/L) Insuffciency 20 - 30 ng/mL (50 - 75 nmol/L) Sufficiency 30 - 100 ng/mL (75 - 250 nmol/L) Toxicity >100 ng/mL (>250 nmol/L) 38-Ffp-624308:14 Blood Glucose , Office (11068) Blood Glucose , Office 137 (Normal) 46-Uog-249074:14 HgA1C , Office (13468) HgA1C , Office 6.1 % (Normal) Range: 4.6 - 7.1 :35 CBC W/Diff, Automated Comments: [facility] Bgodkgistp8599 [address] [place], [place], [address] Absolute Lymph 1.30 {X10_3/ul} (Normal) Range: 0.83-4.51 [...] Metabolic Profil Comments: Reason for Laboratory Test [facility] Flhrkncosy2741 [address] [place], [address] GAP 8 (Normal) Range: 5-15 CO2 31.0 mmol/L (Normal) Range: 21.0-32.0 CL 99 mmol/L (Normal) Range: 98-107 K 3.4 mmol/L (Abnormal) Range: 3.5-5.1 NA 138 mmol/L (Normal) Range: 136-145 T BILI 0.70 mg/dL (Normal) Range: 0.20-1.00 ALT 27 U/L (Normal) Range: 13-56 Comments: Please note revised ALT reference range yvcsxqiyc98/28/2018. ALK P 102 U/L (Normal) Range: 45-117 [...] A.D.A. criteria.Please note revised GLUCOSE reference range fdbwxlevu08/02/2018. :33 LDH 198 U/L (Normal) Comments: Reason for Laboratory Test OVSerial Specimen #1, #2 or #3? 1[facility] Xnhbdtmfpn0655 [place], [place], [address] Range: 84-246 98-Bbf-820850:15 Culture, Urine Comments: [facility] Rahjxkjhyi4539 [address] [place], [place], [address] CUUR See Note (Normal) Comments: VERBAL ORDER DR. IRVIN'S OFFICE Urine CultureORGANISM 1: Mixed Gram Positive OrganismsColony Count 11,000-25,000MIX CULTURE Mixed contaminants. Submit a new specimen if indicated. 73-Dii-629840:11 CBC W/Diff, Automated Comments: [facility] Ppcjkkbjuo9480 [address] [place], [place], [address] Absolute Lymph 1.34 {X10_3/ul} (Normal) Range: 0.83-4.51 [...] 4.2-5.4 WBC 5.4 K/mm3 (Normal) Range: 4.4-11.0 47-Usw-092240:11 Comprehensive Metabolic Profil Comments: Comments: [facility] Rzuvgdyexg9791 [place], [address] GAP 7 (Normal) Range: 5-15 CO2 28.0 mmol/L (Normal) Range: 21.0-32.0 CL 100 mmol/L (Normal) Range: 98-107 K 3.9 mmol/L (Normal) Range: 3.5-5.1 NA 135 mmol/L (Abnormal) Range: 136-145 T BILI 0.70 mg/dL (Normal) Range: 0.20-1.00 ALT 31 U/L (Normal) Range: 13-56 Comments: Please note revised ALT reference range wueghzyjb49/28/2018. ALK P 110 U/L (Normal) Range: 45-117 [...] A.D.A. criteria.Please note revised GLUCOSE reference range ytcdotlbm03/02/2018. 27-Zcr-291992:10 Urinalysis, Complete Comments: ORDERED UACDR.JACINDA ORDERED CMP AND CBCDComments: clean catchComments: clean catchHow was Urine Obtained? CONTACT ASSEMBLER TO [facility] Cimiflroxj6668 [place], [address] MUCUS, URINE RARE {/hpf} (Normal) [...] (Normal) CLARITY Cloudy (Normal) COLOR Yellow (Normal) 8-Eeb-346023:42 ,Serum,hCG Quali. Comments: Comments: use blood in [facility] Ncjuijsfoa6649 [place], [address] HCGSQUAL NEGATIVE {Negative} (Normal) Range: 0-9 Nonpreg HCG Qual triggr 2 m[iU]/mL (Normal) 8-Diy-348465:41 Basic Metabolic Profile (BMP) Comments: [facility] Nhfhxuwroo6976 [place], [address] GAP 10 (Normal) Range: 5-15 [...] A.D.A. criteria.Please note revised GLUCOSE reference range fbjidkuvv62/02/2018. 4-Wtq-982114:41 CBC-Complete Blood Cnt No Diff Comments: [facility] Etnwnntwbn5365 [place], [address] MPV 9.6 fL (Normal) Range: 6.2-12.0 PLT [...] 4.2-5.4 WBC 8.7 K/mm3 (Normal) Range: 4.4-11.0 7-Tuk-019257:41 Prothrombin Time w/INR Comments: [facility] [address] [place], [address] INR 1.0 (Normal) PROTIME 12.9 s (Normal) Range: 11.7-14.9 03-Nov-20179:00 Culture, Urine Comments: [facility] Ekjxyaxmhi9072 [place], [address] CUUR See Note (Normal) Comments: [...] &lt ;=20 S(NF) indicates non-formulary drug at [facility]. Approval by Infectious Disease Specialist required before non- formulary drugs may be ordered and/or dispensed. :27 AFP, Tumor Marker Comments: Is Patient ? NPatient's Weight (LBS.): 124Number of Fetuses: 0[facility] (refer to report for specific site)refer to report for address and phone number AFP TUMOR 2253 6.8 ng/mL (Normal) Range: 0.0-8.3 Comments: Khanh ECLIA methodologyPerformed at: CB - [facility] [address] [id number] Director: Omar Hood PhD, Phone: [phone] :27 CBC W/Diff, Automated Comments: [facility] Bqqhaglhbe6412 [address] [place], [place], [address] Absolute Lymph 1.47 {X10_3/ul} (Normal) Range: 0.83-4.51 [...] 4.2-5.4 WBC 6.0 K/mm3 (Normal) Range: 4.4-11.0 48-Phc-23728:27 Comprehensive Metabolic Profil Comments: [facility] Sckrnhextt1346 [place], [address] GAP 9 (Normal) Range: 5-15 CO2 28.0 [...] Range: 70-110 :27 Microalb:Creat Ratio,Random UR Comments: [facility] Wvrlyqzqxy3912 [facility] [address] [place], [place], [address] MALB:CREAT 17.4 {mg/g_CRE} (Normal) MICROALBUMIN,UR 37.5 mg/L (Normal) UR CREAT 215.00 mg/dL (Normal) :40 CBC W/Diff, Automated Comments: [facility] Dwgluvnocb[address] [place], [place], [address] Absolute Lymph 1.60 {X10_3/ul} (Normal) Range: 0.83-4.51 [...] 4.2-5.4 WBC 10.9 K/mm3 (Normal) Range: 4.4-11.0 74-Vff-38584:39 Comprehensive Metabolic Profil Comments: Order Date: 12/06/16Order Info: 0786-1 - *CMP Complete Met[facility] Qditutthkh8367 [place], [address] GAP 10 (Normal) Range: 5-15 CO2 27.0 [...] per A.D.A. criteria. :15 Culture, Urine Comments: [facility] Qhzyrjeyxe3765 [place], [address] CUUR See Note (Normal) Comments: Urine CultureORGANISM [...] $ <=20 S(NF) indicates non-formulary drug at [facility]. Approval by Infectious Disease Specialist required before non-formulary drugs may be ordered and/or dispensed. :35 HgA1C , Office (12750) HgA1C , Office 6.5 % (Normal) Range: 4.6 - 7.1 :07 AFP, Tumor Marker Comments: Is Patient ? N[facility] (refer to report for specific site)refer to report for address and phone number AFP TUMOR 2253 8.5 ng/mL (Abnormal) Range: 0.0-8.3 Comments: Khanh ECLIA methodologyPerformed at: - [facility] [id number] Director: Omar Hood PhD, Phone: [phone] :[phone] CBC W/Diff, Automated Comments: [facility] Dubfwkwsgp2481 [place], [address] Absolute Lymph 1.17 {X10_3/ul} (Normal) [...] Range: 4.4-11.0 :07 Comprehensive Metabolic Profil Comments: [facility] Qzrwqzonio7427 [address] [place], [address] GAP 9 (Normal) Range: 5-15 CO2 28.0 [...] the [place] Food and Drug Administration.Performed at: [place] [id number] Director: Zia Jarvis MD, Phone: [phone] INS RES/DIAB RK . (Normal) LDL SIZE [...] . (Normal) :07 Vitamin D,25 Hydroxy Comments: [facility] Fagfyyqvig8702 [address] [place], [address] Vitamin D 25-OH 61.8 ng/mL (Normal) Comments: Vitamin D 25(OH) Status Range Deficiency <20 ng/mL (50nmol/L) Insuffciency 20 - 30 ng/mL (50 - 75 nmol/L) Sufficiency 30 - 100 ng/mL (75 - 250 nmol/L) Toxicity >100 ng/mL (>250 nmol/L) :48 Liver Profile Comments: [facility] [address] [place], [address] D BILI 0.14 mg/dL (Normal) Range: 0.00-0.30 T BILI 0.50 mg/dL (Normal) Range: 0.20-1.00 ALT 57 U/L (Normal) Range: 12-78 ALK P 94 U/L (Normal) Range: 45-117 AST 40 U/L (Abnormal) Range: 15-37 GLOB 2.8 g/dL (Normal) Range: 2.3-3.5 ALB 3.9 g/dL (Normal) Range: 3.4-5.0 T PROT 6.7 g/dL (Normal) Range: 6.4-8.2 :45 Potassium Comments: [facility] [address] [place], [address] K 4.3 mmol/L (Normal) Range: 3.5-5.1 :35 CBC W/Diff, Automated Comments: [facility] [address] [place], [address] Absolute Lymph 1.24 {X10_3/ul} (Normal) Range: [...] Range: 4.4-11.0 :35 Comprehensive Metabolic Profil Comments: [facility] Xxmrnvzbyt6546 [place], [address] GAP 10 (Normal) Range: 5-15 CO2 31.0 [...] 126 mg/dLsuggests DIABETES MELLITUS per A.D.A. criteria. 24-Lcd-11959:0 ASPIRATION (SLIDES ONLY) See Note (Normal) Comments: [facility] Zhygyeapij1337 [facility] [place], [address] 0 Comments: Patient: IFEOMA ASHRAF : 1965 (52/F) Acct Num: [id number] Phys: Janelle KING,Alejandro Unit Num: [id number] Loc: LABSPEC Specimen: [id number] Received: 03/18/171126 Spec Ty pe: ASPIRATION TISSUES TISSUES: COMMENT Correlation with clinical, radiologic findings and appropriate follow up are necessary. CYTOLOGY GROSS Received are ten smears labeled wi th the patient's name and designated per the requisition as left thyroid FNA. Submitted for staining. / 03/18/17 TC:5 CPT: 95239 CYTOLOGY STUDY Slides are reviewed. The specimen [...] <signature on file> :30 HEPATITIS C ANTIBODY (10994) Comments: PATIENT NOT FASTINGPERFORMED BY: [facility] CenterFzwkxs3179 [facility] [id number] Hep C Virus Ab <0.1 {s/co_ratio} (Normal) Range: 0.0-0.9 Comments: Negative: < 0.8 Indeterminate: 0.8 - 0.9 Positive: > 0.9 . The CDC recommends that a positive HCV antibody result be followed up with a HCV Nucleic Acid Amplification test (645121). :30 Potassium Serum (98364) Comments: PATIENT NOT FASTINGPERFORMED BY: [facility]Co[facility] CenterXppqtw5117 [facility] [id number] Potassium, Serum 4.8 mmol/L (Normal) Range: 3.5-5.2 :29 HgA1C , Office (35118) HgA1C , Office 7.9 % (Abnormal) Range: 4.6 - 7.1 :53 CBC W/Diff, Automated Comments: [facility] Qzuyawfecr6466 [address] [place], [place], [address] Absolute Lymph 1.57 {X10_3/ul} (Normal) Range: 0.83-4.51 [...] Range: 4.4-11.0 :53 Comprehensive Metabolic Profil Comments: [facility] Kgdxutymgv3937 [place], [address] GAP 11 (Normal) Range: 5-15 CO2 32.0 [...] per A.D.A. criteria. :53 Lipid Profile Comments: [facility] [address] [place], [address] VLDL 37 mg/dL (Normal) Range: [...] High Risk :53 Microalb:Creat Ratio,Random UR Comments: [facility] [address]zu[address] [place], [address] MALB:CREAT 19.7 {mg/g_CRE} (Normal) MICROALBUMIN,UR 27.8 mg/L (Normal) UR CREAT 141.00 mg/dL (Normal) :53 Thyroid Stim Hormone (TSH) Comments: [facility] [address] [place], [address] TSH 2.39 {uIU/mL} (Normal) Range: 0.358-3.74 :53 Vitamin D,25 Hydroxy Comments: [facility] [address] [place], [address] Vitamin D 25-OH 79.9 ng/mL (Normal) Comments: Vitamin D 25(OH) Status Range Deficiency <20 ng/mL (50nmol/L) Insuffciency 20 - 30 ng/mL (50 - 75 nmol/L) Sufficiency 30 - 100 ng/mL (75 - 250 nmol/L) Toxicity >100 ng/mL (>250 nmol/L) 22-Whd-611130:08 CBC W/Diff, Automated Comments: [facility] Yjtbnddyiy7852 [address] [place], [place], [address] Absolute Lymph 2.04 {X10_3/ul} (Normal) Range: 0.83-4.51 [...] 4.2-5.4 WBC 9.0 K/mm3 (Normal) Range: 4.4-11.0 93-Buc-434072:08 Comprehensive Metabolic Profil Comments: [facility] Zxusweadte7293 [address] [place], [place], [address] GAP 9 (Normal) Range: 5-15 CO2 27.0 [...] 126 mg/dLsuggests DIABETES MELLITUS per A.D.A. criteria. 34-Xjo-327095:00 Culture, Urine Comments: [facility] Hxekaadjni0698 [facility] [address] [place], [place], [address] CUUR See Note (Normal) Comments: Urine CultureORGANISM 1: Mixed Gram Positive OrganismsColony Count >100,000MIX CULTURE Mixed contaminants. Submit a new specimen if indicated. 0-Bxj-784748:25 CBC W/Diff, Auto - EPLAB Comments: At [facility]Ger[facility] Medical Oncologypatients receive CBC w/auto Differential ONLY. Physicianwill place an order for a manual differential or Pathologistreview at his discretion. [facility]. [address] [place] [address] SWIMMING POOL MAINTENANCE: MATEO CASTANEDA DO PH:[phone] Clinic [facility] Hospital Uefxctescg3389 [place], [address] Absolute Lymph 1.42 {X10_3/uL} (Normal) [...] 4.2-5.4 WBC 6.3 K/mm3 (Normal) Range: 4.4-11.0 [id number] Comprehensive Metabolic Profil Comments: Order Date: 06/07/16Order Date: 16Serial Specimen #1, #2 or #3? [facility] [id number] [place], [address] GAP 11 (Normal) Range: 5-15 CO2 24.0 [...] 200 mg/dLsuggests DIABETES MELLITUS per A.D.A. criteria. [id number] LDH 208 U/L (Normal) Comments: Order Date: 06/07/16Order Date: 16Serial Specimen #1, #2 or #3? [address] [place] [place] [address] [address] [place], [place], [address] Range: 84-246 9-Nya-099773:25 Uric Acid Comments: Order Date: 06/07/16Order Date: 16Serial Specimen #1, #2 or #3? [address] [place] [address] Efvwwrclfe[address] [place], [place], [id number] URIC 3.8 mg/dL (Normal) Range: 2.6-6.0 Comments: The drugs N-Acetylcysteine and Metamizole may falsely deressthis assay. :10 HgA1C , Office (30461) HgA1C , Office 8.0 % (Abnormal) Range: 4.6 - 7.1 :10 Blood Glucose , Office (53190) Blood Glucose , Office 223 (Normal) :24 AFP, Tumor Marker Comments: Is Patient ? [facility] (refer to report for specific site)refer to report for address and phone number AFP TUMOR 2253 8.5 ng/mL (Abnormal) Range: 0.0-8.3 Comments: Screenhero ECLIA methodologyPerformed at: [facility] LabCo[address] [id number] Director: Omar Hood PhD, Phone: [phone] :24 CBC W/Diff, Automated Comments: [facility] Wxfvwhyqud3477 [facility] [place], [address] Absolute Lymph 1.35 {X10_3/ul} (Normal) [...] 4.2-5.4 WBC 4.1 K/mm3 (Abnormal) Range: 4.4-11.0 06-Jsu-06096:24 Comprehensive Metabolic Profil Comments: [facility] Kuuogdaxmd4[address] [place], [place], [address] GAP 9 (Normal) Range: 5-15 CO2 27.0 [...] 126 mg/dLsuggests DIABETES MELLITUS per A.D.A. criteria. 54-Lnp-05361:24 NMR Lipoprofile Comments: [facility] (refer to report [...] the [place] Food and Drug Administration.Performed at: [facility] [address] [place] [address] [id number] Director: Zia Jarvis MD, Phone: [phone] INS RES/DIAB RK . (Normal) LDL SIZE [...] mg/dL (Normal) Range: 100-199 LIPIDS . (Normal) 12-Osz-953523:53 CBC W/Diff, Automated Comments: [facility] Tvittzwhzo44[address] [place], [address] Absolute Lymph 1.41 {X10_3/ul} (Normal) Range: 0.83-4.51 [...] 4.2-5.4 WBC 12.2 K/mm3 (Abnormal) Range: 4.4-11.0 14-Ivt-983911:53 Comprehensive Metabolic Profil Comments: [facility] Ftexakxest25[address] [place], [place], [address] GAP 13 (Normal) Range: 5-15 CO2 24.0 [...] A.D.A. criteria. :42 CBC W/Diff, Automated Comments: [facility] Jkdxucwmqk[address] [place], [place], [address] Absolute Lymph 1.92 {X10_3/ul} (Normal) Range: 0.83-4.51 [...] Range: 4.4-11.0 :42 Comprehensive Metabolic Profil Comments: [facility] [address] [place], [address] GAP 11 (Normal) Range: 5-15 CO2 25.0 [...] :55 Magnesium Comments: Order Date: 06/07/16Order Date: 06/07/16[facility] Djapmoltwz25[address] [place], [address] MG 2.0 mg/dL (Normal) Range: 1.8-2.4 :57 CBC W/Diff, Auto - EPLAB Comments: At [facility] [place] Medical Oncologypatients receive CBC w/auto Differential ONLY. Physicianwill place an order for a manual differential or Pathologistreview at his discretion. [facility]. [address] [place] [address] [place] [address] SWIMMING POOL MAINTENANCE: MATEO CASTANEDA DO PH:[phone] Clinic Euclid Hospital Nwfplejcgw4903 [place], [address] Absolute Lymph 1.38 {X10_3/uL} (Normal) [...] Profil Comments: Order Date: 06/07/16OV Order #: [id number] Specimen #1, #2 or #3? 1 [id number] [facility]ma Medical Center Qpbxyovaqq5966 [address] [place], [place], [address] GAP 13 (Normal) Range: 5-15 CO2 24.0 [...] (Normal) Comments: Order Date: 06/07/16 Order #: [id number] Specimen #1, #2 or #3? [id number] [place] [address] Lvjuhcouoe0707 [facility] [place], [address] Range: 84-246 :56 Magnesium Comments: Order Date: 06/07/16 Order #: [id number] Specimen #1, #2 or #3? [id number] [place] [address] Pcmcdeicam0037 [facility] [place], [address] MG 1.5 mg/dL (Abnormal) Range: 1.8-2.4 :56 Uric Acid Comments: Order Date: 06/07/16 Order #: [id number] Specimen #1, #2 or #3? [id number] [facility] [address]glkn[address] [place], [place], [address] URIC 4.8 mg/dL (Normal) Range: 2.6-6.0 Comments: The drugs N-Acetylcysteine and Metamizole may falsely deressthis assay. :30 Liver Profile Comments: [facility] Rxxlmmfnnu[address] [place], [place], [address] D BILI 0.13 mg/dL (Normal) Range: 0.00-0.30 T BILI 0.40 mg/dL (Normal) Range: 0.20-1.00 ALT 60 U/L (Normal) Range: 12-78 ALK P 126 U/L (Normal) Range: 50-136 AST 37 U/L (Normal) Range: 15-37 GLOB 2.7 g/dL (Normal) Range: 2.3-3.5 ALB 3.4 g/dL (Normal) Range: 3.4-5.0 T PROT 6.1 g/dL (Abnormal) Range: 6.4-8.2 :33 CBC W/AUTO DIFF WBC Comments: PATIENT NOT FASTINGPERFORMED BY: [facility] Yictme2899 [facility] [id number] Information: NURSE DRAW (27447) Immature Grans (Abs) 0.0 {x10E3/uL} (Normal) Range: [...] PANEL, COMPREHENSIVE Comments: PATIENT NOT FASTINGPERFORMED BY: LabCoNewton Medical CenterTuxcmo9848 [facility] [id number] (54221) ALT (SGPT) 41 [iU]/L (Abnormal) Range: 0-32 [...] (Abnormal) Range: 65-99 :09 HgA1C , Office (82677) HgA1C , Office 7.0 % (Normal) Range: 4.6 - 7.1 :14 AFP, Tumor Marker Comments: Is Patient ? [facility] (refer to report for specific site)refer to report for address and phone number AFP TUMOR 2253 7.7 ng/mL (Normal) Range: 0.0-8.3 Comments: Screenhero ECLIA methodologyPerformed at: [email or web address] - [facility] [place] [id number] Director: Omar Hood PhD, Phone: [phone] :14 CBC W/Diff, Automated Comments: [facility] Ccoiywtgco[address] [place], [place], [address] ; will review on 05/17 Absolute Lymph [...] Range: 4.4-11.0 :14 Comprehensive Metabolic Profil Comments: [facility] Mapnfozfzd[address] [place], [place], [address] GAP 7 (Normal) Range: 5-15 CO2 28.0 [...] per A.D.A. criteria. :14 Lipid Profile Comments: [facility] V[address] [place], [place], [address] VLDL 36 mg/dL (Normal) Range: 5-40 LDL [...] High Risk :14 Microalb:Creat Ratio,Random UR Comments: [facility] Y[address] [place], [address] ; will review on 05/17 MALB:CREAT 14.6 {mg/g_CRE} (Normal) MICROALBUMIN,UR 23.4 mg/L (Normal) UR CREAT 160.00 mg/dL (Normal) :14 Thyroid Stim Hormone (TSH) Comments: [facility] [address] [place], [address] TSH 1.89 {uIU/mL} (Normal) Range: 0.358-3.74 :14 Vitamin D,25 Hydroxy Comments: [facility] Ng[address] [place], [address] ; will review on 05/17 Vitamin D 25-OH 53.2 ng/mL (Normal) Comments: Vitamin D 25(OH) Status Range Deficiency <20 ng/mL (50nmol/L) Insuffciency 20 - 30 ng/mL (50 - 75 nmol/L) Sufficiency 30 - 100 ng/mL (75 - 250 nmol/L) Toxicity >100 ng/mL (>250 nmol/L) :23 CBC W/Diff, Automated Comments: [facility] Vhiizsmdfr[address] [place], [place], [address] Absolute Lymph 1.65 {X10_3/ul} (Normal) Range: 0.83-4.51 [...] 4.2-5.4 WBC 4.4 K/mm3 (Normal) Range: 4.4-11.0 76-Jpu-11824:23 Comprehensive Metabolic Profil Comments: [facility] [address] [place], [place], [address] GAP 9 (Normal) Range: 5-15 CO2 30.0 [...] 126 mg/dLsuggests DIABETES MELLITUS per A.D.A. criteria. 73-Bvk-651894:07 HgA1C , Office (61999) HgA1C , Office 8.5 % (Abnormal) Range: 4.6 - 7.1 :15 CBC W/Diff, Automated Comments: [facility] Yntvbyolew[address] [place], [place], [address] Absolute Lymph 1.76 {X10_3/ul} (Normal) Range: 0.83-4.51 [...] 4.2-5.4 WBC 6.7 K/mm3 (Normal) Range: 4.4-11.0 11-Xwp-50576:15 Comprehensive Metabolic Profil Comments: [facility] Gopfmgohqr9449 [place], [address] GAP 13 (Normal) Range: 5-15 CO2 23.0 [...] per A.D.A. criteria. :15 Lipid Profile Comments: [facility] Fcnsotwqmi5099 [facility] [place], [place], [address] VLDL 45 mg/dL (Abnormal) Range: 5-40 LDL [...] High Risk :15 Vitamin D,25 Hydroxy Comments: [facility] Wfivuelkuh3449 [facility] [place], [place], [address] Vitamin D 25-OH 28.8 ng/mL (Normal) Comments: Vitamin D 25(OH) Status Range Deficiency <20 ng/mL (50nmol/L) Insuffciency 20 - 30 ng/mL (50 - 75 nmol/L) Sufficiency 30 - 100 ng/mL (75 - 250 nmol/L) Toxicity >100 ng/mL (>250 nmol/L); ADDENDA: non-emergent till apt :35 CBC W/Diff, Automated Comments: [facility] Eryrwhjdoc[address] [place], [place], [address] Absolute Lymph 1.26 {X10_3/ul} (Normal) Range: 0.83-4.51 [...] Range: 4.4-11.0 :35 Comprehensive Metabolic Profil Comments: [facility] [address]olfnlah[address] [place], [place], [address] GAP 14 (Normal) Range: 5-15 CO2 26.0 [...] ASPIRATION (SLIDES ONLY) See Note (Normal) Comments: [facility] Cjgossptvl7[address] [place], [place], [address] 0 Comments: Patient: IFEOMA ASHRAF : 1965 (50/F) Acct Num: [id number] Phys: Janelle KING,Alejandro Unit Num: [id number] Loc: LABSPEC Specimen: [id number] Received: 01/06/16 - 1129 Spec Ty pe: ASPIRATION TISSUES TISSUES: COMMENT Correlation with clinical, radiologic findings and appropriate follow up are necessary. CYTOLOGY GROSS Received are 10 smears labeled wit h the patient's name and designated per the requisition as fine needle aspiration left thyroid. Submitted for staining. 01/06/16 TC:5 CPT:19494 CYTOLOGY STUDY Slides are reviewed. The spe [...] Signed Toni Yepez 01/07/16 <signature on file> 3-Ckn-169751:29 CBC W/Diff, Auto - EPLAB Comments: At [facility] Outpatient [facility], [place] Medical Oncologypatients receive CBC w/auto Differential ONLY. Physicianwill place an order for a manual differential or Pathologistreview at his discretion. [facility] OUTPATIENT [facility]. [address] [place] [address] [place] [address] SWIMMING POOL MAINTENANCE: MATEO CASTANEDA DO PH:[phone] Clinic Euclid Hospital Z[address]pytiwqu[address] [place], [place], [address] Absolute Lymph 1.49 {X10_3/uL} (Normal) Range: 0.83-4.51 [...] 4.2-5.4 WBC 4.6 K/mm3 (Normal) Range: 4.4-11.0 4-Ixk-111058:28 Comprehensive Metabolic Profil Comments: Serial Specimen #1, #2 or #3? 1W[facility] Ibelvwsqwu4669 [place], [place], [address] GAP 8 (Normal) Range: 5-15 CO2 26.0 [...] 126 mg/dLsuggests DIABETES MELLITUS per A.D.A. criteria. 9-Kzl-126361:28 LDH 213 U/L (Normal) Comments: Serial Specimen #1, #2 or #3? [address] [place] [address] [address] [place], [address] Range: 84-246 0-Kzw-043028:28 Magnesium Comments: Serial Specimen #1, #2 or #3? [address] [place] [address] Bhibxq[address]bi[address] [place], [place], [address](226) MG 1.6 mg/dL (Abnormal) Range: 1.8-2.4 9-Cfm-146696:28 Uric Acid Comments: Serial Specimen #1, #2 or #3? [address] [place] [address] Lp[address]av[address] [place], [place], [address](062) URIC 4.8 mg/dL (Normal) Range: 2.6-6.0 26-Nov-20159:36 Miscellaneous Lab Procedure Comments: Comments: [id number] URINE TOX,RUN LOWEST TESTTest(s) Ordered: [id number] URINE TOX,RUN LOWEST TESTCleveland Clinic [facility]ucl[facility] Hospital Zfwjwblbbn3360 [address] [place], [place], [address] [facility] Comments: [id number] 6+OXYCODONE-BUND (ng/mL)DRUG RESULT SCREEN CUTOFF____ Amphetamines,Urine Negat LAB (Normal) scott ng/mL 1000Amphetamine test includes Amphetamine and Methamphetamine.Barbiturates Negative ng/mL 200Benzodiazepines Negative ng/mL 200Cannabinoid TEST Negative ng/mL 20Cocaine (Metab) Negative ng/mL 300Opiates Positive ng/mL 300 Opiates test includes Codeine, Morphine, Hydromorphone, Holliday codone.Please Note:Confirmation performed by Mass SpectrometryCodeine NegativeMorphine NegativeHydromorphone NegativeHydrocodone Positive Hydrocodone Confirm 1950 ng/mL 300Oxycodone/Oxymorphone,Urine Negative ng/mL 300 Test includes Oxydodone and Oxymorphone. TESTI NG PERFORMED AT [facility]. ORIGINAL REPORT ON FILE IN LAB CONTAINS ADDITIONAL TEST SITE INFORMATION. :36 Urine Drug Screen (VISTA) Comments: Comments: [id number] URINE TOX,RUN LOWEST TESTList of Drugs Taken or Suspected? UNKNOWNWMet[facility] Fdmttjszps5693 [place], [place], [address] ; ordered by Basali THC NEGATIVE (Normal) [...] TESTING MUST BE ORDERED SEPARATELY. USE TESTMNEMONIC: [facility] 34-Huk-770201:20 HgA1C , Office (11458) HgA1C , Office 7.3 % (Abnormal) Range: 4.6 - 7.1 :13 AFP, Tumor Marker Comments: Is Patient ? [facility] (refer to report for specific site)refer to report for address and phone number AFP TUMOR 2253 6.4 ng/mL (Normal) Range: 0.0-8.3 Comments: Screenhero ECLIA methodologyPerformed at: [email or web address] - [facility] [address] [id number] Director: Omar Hood PhD, Phone: [phone] :[phone] CBC W/Diff, Automated Comments: [facility] Usihevrjte99[address] [place], [address] Absolute Lymph 1.59 {X10_3/ul} (Normal) [...] Range: 4.4-11.0 :13 Comprehensive Metabolic Profil Comments: [facility] Nxwqamqipb0[address] [place], [address] GAP 10 (Normal) Range: 5-15 CO2 24.0 [...] 126 mg/dLsuggests DIABETES MELLITUS per A.D.A. criteria. 04-Eok-69833:13 Lipid Profile Comments: [facility] Loypaijxjr[address] [place], [address] ; non-emergent and pt has a f/u [...] High Risk :13 Microalb:Creat Ratio,Random UR Comments: [facility] Oqoloceovb23[address] [place], [address] MALB:CREAT 17.0 {mg/g_CRE} (Normal) MICROALBUMIN,UR 43.7 mg/L (Normal) UR CREAT 257.00 mg/dL (Normal) :13 Thyroid Stim Hormone (TSH) Comments: [facility] Efthiieaoa8315 [place], [address] TSH 1.82 {uIU/mL} (Normal) Range: 0.358-3.74 :13 Vitamin D,25 Hydroxy Comments: [facility] Qyevjufbju7[address] [place], [address] ; will review at 11/10 appt Vitamin D 25-OH 39.8 ng/mL (Normal) Comments: Vitamin D 25(OH) Status Range Deficiency <20 ng/mL (50nmol/L) Insuffciency 20 - 30 ng/mL (50 - 75 nmol/L) Sufficiency 30 - 100 ng/mL (75 - 250 nmol/L) Toxicity >100 ng/mL (>250 nmol/L) :40 CBC W/Diff, Automated Comments: [facility] Nqsbrzkfds38[address] [place], [address] Absolute Lymph 1.47 {X10_3/ul} (Normal) [...] 4.2-5.4 WBC 4.7 K/mm3 (Normal) Range: 4.4-11.0 93-App-45664:40 Comprehensive Metabolic Profil Comments: [facility] Vbfburqbxo4970 [place], [address] GAP 13 (Normal) Range: 5-15 [...] per A.D.A. criteria. :49 HgA1C , Office (80538) HgA1C , Office 7.8 % (Abnormal) Range: 4.6 - 7.1 :09 CBC W/Diff, Automated Comments: [facility] Dmnahriykh[address] [place], [place], [address] Absolute Lymph 1.07 {X10_3/ul} (Normal) Range: 0.83-4.51 [...] 4.2-5.4 WBC 5.3 K/mm3 (Normal) Range: 4.4-11.0 75-Lss-521587:09 Comprehensive Metabolic Profil Comments: [facility] Fpdnfsrvjc6126 [address] [place], [place], [address] GAP 7 (Normal) Range: 5-15 CO2 28.0 [...] 200 mg/dLsuggests DIABETES MELLITUS per A.D.A. criteria. 1-Rss-770655:42 CBC W/Diff, Automated Comments: At [facility] Outpatient [facility], [place] Medical Oncologypatients receive CBC w/auto Differential ONLY. Physicianwill place an order for a manual differential or Pathologistreview at his discretion. [facility]. [address] [place] [address] [place] [address] SWIMMING POOL MAINTENANCE: MATEO CASTANEDA DO PH:[phone] performed at:[facility] Laborato [address] [place] [address] Absolute Lymph 1.60 {X10_3/ul} (Normal) Range: 0.83-4.51 [...] 4.2-5.4 WBC 7.0 K/mm3 (Normal) Range: 4.4-11.0 5-Die-973865:42 Comprehensive Metabolic Profil Comments: Serial Specimen #1, #2 or #3? 1Test performed at:[facility] Esikevwmhk[address] [place], [place] [address] GAP 9 (Normal) Range: 5-15 CO2 25.0 [...] Comments: Please note revised CREATININE reference range tixzfdzjz92/22/2015. BUN 20 mg/dL (Abnormal) Range: 7-18 GLU 118 mg/dL (Abnormal) Range: 70-110 Comments: Fasting Glucose result from 110 to <126 mg/dLsuggests IMPAIRED HOMEOSTASIS per A.D.A. criteria. :42 LDH 133 U/L (Normal) Comments: Serial Specimen #1, #2 or #3? 1Test performed at:[facility] [address] [place] [address] Range: 84-246 9-Iot-499566:42 Uric Acid Comments: Serial Specimen #1, #2 or #3? 1Test performed at:[facility] Uebeqghbgg5596 [facility] [place] [address] URIC 4.6 mg/dL (Normal) Range: 2.6-6.0 :02 CBC W/Diff, Automated Comments: Test performed at:[facility] [address]fi[address] [place], [place] [address] ; handled by vicki Absolute Lymph 1.23 [...] 4.2-5.4 WBC 4.1 K/mm3 (Abnormal) Range: 4.4-11.0 2-Isc-106199:02 Comprehensive Metabolic Profil Comments: Test performed at:[facility] Wpeudsuhzd60[address] [place], [place] [address] GAP 12 (Normal) Range: 5-15 CO2 23.0 [...] Comments: Please note revised CREATININE reference range guotziltc37/22/2015. BUN 11 mg/dL (Normal) Range: 7-18 GLU 214 mg/dL (Abnormal) Range: 70-110 Comments: Glucose result greater than or equal to 200 mg/dLsuggests DIABETES MELLITUS per A.D.A. criteria. :49 VITAMIN B-12 (CYANOCOBALAMIN) Comments: PATIENT NOT FASTINGPERFORMED BY: [facility]6370 [facility] [id number] (35741) Vitamin B12 464 pg/mL (Normal) Range: 211-946 :49 Vitamin D Hydroxy (46144) Comments: PATIENT NOT FASTINGPERFORMED BY: LabCoNewton Medical CenterOndjvo2806 [facility] [id number] Vitamin D, 25-Hydroxy 11.5 ng/mL (Abnormal) Range: 30.0-100.0 Comments: Vitamin D deficiency has been defined by the [place] of[facility] Centercine and an Endocrine Society practice guideline as alevel of serum 25-OH vitamin D less than 20 ng/mL (1,2).The Endocrine Society went on to further define vitamin Dinsufficiency as a level between 21 and 29 ng/mL (2).1. IOM ([place] of Medicine). 2010. Dietary reference intakes for calcium and D. [place]: The National Academies Press.2. Sami MF, Sophie MOORE, Xiomara LARES, et al. Evaluation, treatment, and prevention of vitamin D deficiency: an Endocrine Society clinical practice guideline. JCEM. 2010; 96(7):1911-30. :49 CBC W/AUTO DIFF WBC Comments: PATIENT NOT FASTINGPERFORMED BY: [facility]6370 [facility] [id number] Information: [id number] (43913) Immature Grans (Abs) 0.0 {x10E3/uL} (Normal) Range: [...] 3.77-5.28 WBC 6.1 {x10E3/uL} (Normal) Range: 3.4-10.8 01-Vwl-770561:28 URINE GENESIS CULTURE-NITA COL Comments: PATIENT NOT FASTINGPERFORMED BY: [facility] Tcxzlc9253 [facility] [id number] Information: SRC:[facility] Q24876 COUNT (54204) Antimicrobial MIHEAD (Normal) Comments: S = Susceptible; [...] Imipenem Meropenem Urine Final report (Abnormal) Culture,Comprehensive 41-Ebh-171161:24 Urinalysis, Office (78088) UA - LEUKOCYTE ESTERASE Trace (Normal) UA - NITRITE Negative (Normal) URINE UROBILINGN NITA TIMED Normal mg/dL (Normal) UA - PROTEIN 30 mg/dL (Normal) UA - PH 6 (Abnormal) UA - BLOOD Negative (Normal) UA - SPECIFIC GRAVITY 1.030 (Abnormal) UA - KETONES Moderate mg/dL (Normal) UA - BILIRUBIN Small (Normal) UA - GLUCOSE Negative (Normal) 01-Apr-20157:54 Bedside Glucose Comments: Test performed at:[facility] Htidwd[address] [place] [id number] BEDSIDE GLU 129 mg/dL (Abnormal) Range: 70-110 Comments: MANAGEMENT OF PATIENT CARE PER NURSING PROTOCOL 31-Mar-20159:47 Urinalysis, Office (77115) UA - LEUKOCYTE ESTERASE Trace (Normal) UA - NITRITE Negative (Normal) URINE UROBILINGN NITA TIMED 2 mg/dL (Normal) UA - PROTEIN 300 mg/dL (Normal) UA - PH 6.0 (Normal) UA - BLOOD Hemolyzed Large (Normal) UA - SPECIFIC GRAVITY 1.030 (Abnormal) UA - KETONES 15 mg/dL (Abnormal) UA - BILIRUBIN Moderate (Normal) UA - GLUCOSE Negative (Normal) 12-Egd-860471:57 Basic Metabolic Profile (BMP) Comments: Test performed at:[facility] L[address]mnsq[address] [place] [id number] GAP 11 (Normal) Range: 5-15 CO2 27.0 [...] 126 mg/dLsuggests DIABETES MELLITUS per A.D.A. criteria. 77-Vji-387321:57 Digoxin Level Comments: Test performed at:[facility] [address]axjx[address] [place] [address] DIG 1.17 ng/mL (Normal) Range: 0.80-2.00 64-Wit-182203:57 Hemoglobin A1c Comments: Test performed at:[facility] [address]lq[address] [place] [address] HGB A1C 7.0 % (Abnormal) Range: 4.2-6.3 71-Eah-437021:57 Thyroid Stim Hormone (TSH) Comments: Test performed at:[facility] [address]qslpij[address] [place] [address] TSH 0.89 {uIU/mL} (Normal) Range: 0.358-3.74 1-Znl-638198:17 Urine Culture,Comprehensive Comments: PATIENT NOT FASTINGPERFORMED BY: [facility] Moijxx9680 [facility] [id number] Information: SRC:[facility] [id number] Result 1 BETAGB (Abnormal) Comments: Beta hemolytic [...] 02/28/15How was Urine Obtained? CLEAN CATCHTest performed at:[facility] E[address]wvnmyc[address] [place] [address] AMORPHOUS 1+ URATE (Normal) MUCUS, URINE [...] CLARITY Sl. Cloudy (Normal) COLOR Yellow (Normal) 28-Feb-20153:55 CBC W/Diff, Automated Comments: Test performed at:[facility] Rlymewvjew1825 [address] [place], [place] [address] Absolute Lymph 1.29 {X10_3/ul} (Normal) Range: 0.83-4.51 [...] :55 Comprehensive Metabolic Profil Comments: Test performed at:[facility] Kbjguwootz34[address] [place], [place] [address] GAP 10 (Normal) Range: 5-15 CO2 26.0 [...] A.D.A. criteria. :55 Lipase Comments: Test performed at:[facility] Lqmylylhhv[address] [place] [address] LIPASE 142 U/L (Normal) Range: 70-290 4-Lgj-313979:40 HgA1C , Office (15537) HgA1C , Office 7.4 % (Abnormal) Range: 4.6 - 7.1 :03 CBC W/Diff, Automated Comments: Test performed at:[facility] Oxnredtbns9301 [facility] [place] [address] Absolute Lymph 1.31 {X10_3/ul} (Normal) Range: 0.83-4.51 [...] 4.2-5.4 WBC 5.1 K/mm3 (Normal) Range: 4.4-11.0 77-Jyp-849067:03 Comprehensive Metabolic Profil Comments: Test performed at:[facility] [address] [place] [address] GAP 11 (Normal) Range: 5-15 CO2 26.0 [...] 126 mg/dLsuggests DIABETES MELLITUS per A.D.A. criteria. 70-Bow-855405:00 Culture, Urine Comments: Test performed at:[facility] Atgrnumnzg[address] [place] [address] CUUR See Note (Normal) Comments: Urine CultureORGANISM 1: Streptococcus agalactiae (B)[place] Count 1000-10,000 Streptococcus agalactiae (B): REACTION Ampicillin $ <=0.25 S Benzylpenicillin NF <=0.06 S Ceftriaxone (other dx) $ <=0.12 S Inducable Clindamycin Resistan - Linezolid $$$$ <=2 S Vancomycin $ 0.5 S(NF) indicates non-formulary drug at [facility]. Approval by Infectious Disease Specialist required before non-formulary drugs may be ordered and/or dispensed. * CLSI guidelines does not recommend testing of cephalosporins. This interpretation is deduced from Beta-lactam/penicillin results.; ADDENDA: handled by edvin [id number] CBC W/Diff, Auto - EPLAB Only Comments: At [facility], [facility] patientsreceive CBC w/auto Differential ONLY. Physician will placean order for a manual differential or Pathologist review athis discretion. [facility]. [address] [place] [address] [place] [address] SWIMMING POOL MAINTENANCE: MATEO CASTANEDA DO PH:[phone] performed at:[facility] Ppyuudoahr[address] [place], [place] [id number] ; [facility] [place] Absolute Neut 2.7 {X10_3/uL} (Normal) Range: 2.0-7.7 [...] Specimen #1, #2 or #3? 1Test performed at:[facility] [address] [place] [address] Range: 87-241 Comments: ADDENDA: elliott :34 TSH (19699) Comments: PATIENT WAS FASTINGPERFORMED BY: Yicha OnlineWinslow Indian Health Care CenterFkrsus9653 [facility] [id number] TSH 1.240 {uIU/mL} (Normal) Range: 0.450-4.500 :34 LIPID PANEL (03115) Comments: PATIENT WAS FASTINGPERFORMED BY: Yicha OnlineNewton Medical CenterSewkjt4324 [facility] [id number] LDL/HDL Ratio 2.6 {ratio_units} (Normal) Range: 0.0-3.2 [...] CREATININE RATIO Comments: PATIENT WAS FASTINGPERFORMED BY: D[facility]iabaoH[facility] Hospital6370 [facility] [id number]; non- emergent till apt tomorrow (36352) AND (37536) Microalb/Creat Ratio 14.8 {mg/g_creat} (Normal) Range: 0.0-30.0 Microalbumin, Urine 44.5 ug/mL (Abnormal) Range: 0.0-17.0 Creatinine, Urine 301.0 mg/dL (Abnormal) Range: 15.0-278.0 :34 METABOLIC PANEL, Comments: PATIENT WAS FASTINGPERFORMED BY: [facility] Mbyefq8000 [facility] [id number] Information: [id number] COMPREHENSIVE (88922) ALT (SGPT) 21 [iU]/L (Normal) Range: 0-32 [...] Glucose, Serum 161 mg/dL (Abnormal) Range: 65-99 1-Kmg-083087:10 HgA1C , Office (07293) HgA1C , Office 7.2 % (Abnormal) Range: 4.6 - 7.1 :47 CBC W/Diff, Automated Comments: Test performed at:[facility] [address] [place] [address] ; Handled by [facility] Absolute Lymph 1.43 [...] 4.2-5.4 WBC 5.4 K/mm3 (Normal) Range: 4.4-11.0 78-Ejv-379431:47 Comprehensive Metabolic Profil Comments: Test performed at:[facility] Jss[address]jeizwo[address] [place] [address] GAP 6 (Normal) Range: 5-15 CO2 30.0 [...] Microscopic Examination Comments: PATIENT NOT FASTINGPERFORMED BY: [employer]ill70 [facility] [id number] Bacteria Few (Normal) Mucus Threads Present (Normal) Epithelial Cells (non renal) 0-10 {/hpf} (Normal) Range: 0 - 10 RBC 0-2 {/hpf} (Normal) Range: 0 - 2 WBC >30 {/hpf} (Abnormal) Range: 0 - 5 :01 Urinalysis, Routine Comments: PATIENT NOT FASTINGPERFORMED BY: [employer] Rcyhbh3047 [facility] [id number] Microscopic Examination See below: (Normal) Comments: Microscopic was indicated and was performed. Nitrite, Urine Negative (Normal) Urobilinogen,Semi-Qn 0.2 mg/dL (Normal) Range: 0.0-1.9 Bilirubin Negative (Normal) Occult Blood Negative (Normal) Ketones Trace (Abnormal) Glucose Negative (Normal) Protein 1+ (Abnormal) WBC Esterase 3+ (Abnormal) Appearance Turbid (Abnormal) Urine-Color Yellow (Normal) pH 6.0 (Normal) Range: 5.0-7.5 Specific [place] 1.030 (Normal) Range: 1.005-1.030 :18 CBCD ALC [...] mg/dLsuggests DIABETES MELLITUS per A.D.A. criteria. :01 [id number]-RHSXGBCWPFQ-BSGCJ (36884) Comments: PATIENT NOT FASTINGPERFORMED BY: [facility]ajiabaoHuron [facility]-Sinai Hospital6370 [facility] [id number] AFP, Serum, Tumor Marker 7.1 ng/mL (Normal) Range: 0.0-8.3 Comments: Khanh ECLIA methodology :01 PTT (Activated Partial Comments: PATIENT NOT FASTINGPERFORMED BY: [facility]6370 [facility] [id number] Thromboplastin Time) (84572) aPTT 25 {sec} (Normal) Range: 24-33 Comments: This test has not been validated for monitoring unfractionated heparintherapy. aPTT-based therapeutic ranges for unfractionated heparintherapy have not been established. For general guidelines onHeparin monitoring, refer to the [facility]The [facility] Directory of Services. :01 PT (Prothrobim Time) (79161) Comments: PATIENT NOT FASTINGPERFORMED BY: [facility]6370 [facility] [id number] Prothrombin Time 10.4 {sec} (Normal) Range: 9.1-12.0 INR 1.0 (Normal) Range: 0.8-1.2 Comments: Reference interval is for non-anticoagulated patients. . Suggested INR therapeutic range for Vitamin K anta gonist therapy: Standard Dose (moderate intensity therapeutic range): 2.0 - 3.0 Higher intensity therapeutic range 2.5 - 3.5 :01 TSH (18756) Comments: PATIENT NOT FASTINGPERFORMED BY: [facility]aoH[facility] Hospital6370 [facility] [id number] TSH 1.450 {uIU/mL} (Normal) Range: 0.450-4.500 :01 CBC W/AUTO DIFF WBC Comments: PATIENT NOT FASTINGPERFORMED BY: [facility] Hospital6370 [facility] [id number] Information: [id number] (77430) Immature Grans (Abs) 0.0 {x10E3/uL} (Normal) Range: [...] CREATININE RATIO Comments: PATIENT NOT FASTINGPERFORMED BY: Yicha OnlineNewton Medical CenterUxleli0779 [facility] [id number] (29852) AND (29857) Microalb/Creat Ratio 26.4 {mg/g_creat} (Normal) Range: 0.0-30.0 Microalbumin, Urine 96.0 ug/mL (Abnormal) Range: 0.0-17.0 Creatinine, Urine 364.2 mg/dL (Abnormal) Range: 15.0-278.0 :01 METABOLIC PANEL, COMPREHENSIVE Comments: PATIENT NOT FASTINGPERFORMED BY: Yicha OnlineWinslow Indian Health Care CenterKwlmix3744 [facility] [id number] (46048) ALT (SGPT) 19 [iU]/L (Normal) Range: 0-32 [...] mg/dL (Abnormal) Range: 65-99 :01 LIPID PANEL (34342) Comments: PATIENT NOT FASTINGPERFORMED BY: LabCoNewton Medical CenterXmxlek8688 [facility] [id number] LDL/HDL Ratio 2.1 {ratio_units} (Normal) Range: 0.0-3.2 [...] (Normal) Range: 100-199 :19 HgA1C , Office (03821) HgA1C , Office 6.3 % (Normal) Range: [...] & Aerobic Comments: PATIENT NOT FASTINGPERFORMED BY: [employer]6370 [facility] [id number] Information: SRC:WND [id number] RIGHT EYE Culture (83585) Antimicrobial MIHEAD (Normal) Comments: S = Susceptible; [...] hours. Anaerobic Culture Final report (Normal) :57 [id number]-LHARA (09758) Comments: PATIENT WAS FASTINGPERFORMED BY: [employer]6370 [facility] [id number] AFP, Serum, Tumor Marker 9.2 ng/mL (Abnormal) Range: 0.0-8.3 Comments: Khanh ECLIA methodology :57 PTT (Activated Partial Comments: PATIENT WAS FASTINGPERFORMED BY: 6fusionlin6370 [facility] [id number] Thromboplastin Time) (69702) aPTT 26 {sec} (Normal) Range: 24-33 Comments: This test has not been validated for monitoring unfractionated heparintherapy. aPTT-based therapeutic ranges for unfractionated heparintherapy have not been established. For general guidelines onHeparin monitoring, refer to the [facility] Directory of Services. :57 PT (Prothrobim Time) (74477) Comments: PATIENT WAS FASTINGPERFORMED BY: [facility]6370 [facility] [id number] Prothrombin Time 10.5 {sec} (Normal) Range: 9.1-12.0 INR 1.0 (Normal) Range: 0.8-1.2 Comments: Reference interval is for non-anticoagulated patients. . Suggested INR therapeutic range for Vitamin K anta gonist therapy: Standard Dose (moderate intensity therapeutic range): 2.0 - 3.0 Higher intensity therapeutic range 2.5 - 3.5 :57 TSH (22348) Comments: PATIENT WAS FASTINGPERFORMED BY: [facility]6370 [facility] [id number] TSH 3.200 {uIU/mL} (Normal) Range: 0.450-4.500 :57 CBC WITH MANUAL DIFF Comments: PATIENT WAS FASTINGPERFORMED BY: [address] [id number] Information: [id number] (03454) Immature Grans (Abs) 0.0 {x10E3/uL} (Normal) Range: [...] PANEL, COMPREHENSIVE Comments: PATIENT WAS FASTINGPERFORMED BY: LabCoNewton Medical CenterMqnrfu8864 [facility] [id number] (03582) ALT (SGPT) 15 [iU]/L (Normal) Range: 0-32 [...] (Abnormal) Range: 65-99 :29 HgA1C , Office (03891) HgA1C , Office 5.4 % (Normal) Range: [...] CHOL 150 mg/dL (Normal) Comments: <200 mg/dL Ggqssfayq554-187 mg/dL Borderline>240 mg/dL High Risk :50 HgA1C , Office (82228) HgA1C , Office 5.8 % (Normal) Range: [...] [facility] the [facility] within [facility] days. Approximately 10% of breast cancers are not detected by mammography. Anormal mammogram should not delay biopsy of a clinically suspiciousabnormality. Signed:Mele Santiago [facility] 2012 at 9:19:01 AM [phone] Signed GP/GP If you are the referring physician and would like to consult with theradiologist who provided this interpretation, please herbie Bonilla M.D. at [phone]. If this radiologist is unavailable, youwill be directed to another radiologist to assist. If you are a patient with a question regarding this report, pleaseco ntactyour referring physician directly. Professional Interpretation Provided By: [employer], Phone , These documents contain legally protected [...] KING,Stanislavranscribed on 06/15/13919 by ITS IMPORTSign by Prashant Delgadillo MD on 06/15/13920 Sign by: Prashant Delgadillo MD 52-Yxk-92560:27 THYROID Radiology Report See Note Comments: STUDY: [...] Delgadillo M.D.June 15, 2013 at 2:56:26 PM [id number] Signed GP/GP If you are the referring physician and would like to consult with theradiologist who provided this interpretation, please contact Sarmad Bonilla at [phone]. If this radiologist is unavailable, youwill be directed to another radiologist to assist. If you are a patient with a question regarding this report, pleasecontactyour referring physician directly. Profes sional Interpretation Provided By: [employer], Phone , These documents contain legally protected [...] destructionofthese documents. Dictated on 06/15/13 1456 by Maryellen Delgadillo MDscribed on 1732 by ITS IMPORTSign by Prashant Delgadillo MD on 06/15/13 1733 Sign by: Prashant Delgadillo MD 0-Jlh-019148:18 URINE GENESIS CULTURE-NITA COL Comments: PATIENT NOT FASTINGPERFORMED BY: [facility]6370 [facility] [id number] Information: SRC:UR [id number] COUNT (85525) Antimicrobial MIHEAD (Normal) Comments: S = Susceptible; [...] primarily for treating urinary tract infections. (CLSI, M557-E56,2009) Urine Culture,Comprehensive Final report (Normal) 04-Jun-20138:48 Urinalysis, Office (70146) UA - LEUKOCYTE ESTERASE Large (Normal) UA - NITRITE Positive (Normal) URINE UROBILINGN NITA TIMED 2 mg/dL (Normal) UA - PROTEIN Negative mg/dL (Normal) UA - BLOOD Negative (Normal) UA - KETONES Moderate mg/dL (Normal) UA - BILIRUBIN Moderate (Normal) UA - GLUCOSE Small mg/dL (Normal) 61-Bnh-12097:06 MICROALBUMIN: CREATININE RATIO Comments: PATIENT WAS FASTINGPERFORMED BY: [employer]6370 [facility] [id number] (97446) AND (85375) Microalb/Creat Ratio 27.4 {mg/g_creat} (Normal) Range: 0.0-30.0 Microalbumin, Urine 85.2 ug/mL (Abnormal) Range: 0.0-17.0 Creatinine, Urine 311.1 mg/dL (Abnormal) Range: 15.0-278.0 :06 METABOLIC PANEL, Comments: PATIENT WAS FASTINGPERFORMED BY: [employer]70 [facility] [id number] Information: ADD [id number] AND DRAW FEE 99 0772 COMPREHENSIVE (47713) ALT (SGPT) 29 [iU]/L (Normal) Range: 0-32 [...] 76 mg/dL (Normal) Range: 65-99 :06 TSH (05272) Comments: PATIENT WAS FASTINGPERFORMED BY: [address] [id number] TSH 3.040 {uIU/mL} (Normal) Range: 0.450-4.500 :06 LIPID PANEL (86101) Comments: PATIENT WAS FASTINGPERFORMED BY: [address] [id number] LDL/HDL Ratio 2.4 {ratio_units} (Normal) Range: 0.0-3.2 HDL Cholesterol 55 mg/dL (Normal) Comments: According to ATP-III Guidelines, HDL-C >59 mg/dL is considered anegative risk factor for CHD. LDL Cholesterol Calc 134 mg/dL (Abnormal) Range: 0-99 VLDL Cholesterol Ramandeep 18 mg/dL (Normal) Range: 5-40 Cholesterol, Total 207 mg/dL (Abnormal) Range: 100-199 Triglycerides 89 mg/dL (Normal) Range: 0-149 :06 [id number] (32557) Comments: PATIENT WAS FASTINGPERFORMED BY: [facility]6370 [facility] [id number] AFP, Serum, Tumor Marker 5.4 ng/mL (Normal) Range: 0.0-8.3 Comments: Khanh ECLIA methodology :06 PTT (Activated Partial Comments: PATIENT WAS FASTINGPERFORMED BY: [address] [id number] Thromboplastin Time) (65497) aPTT 27 {sec} (Normal) Range: 24-33 Comments: This test has not been validated for monitoring unfractionated heparintherapy. aPTT-based therapeutic ranges for unfractionated heparintherapy have not been established. For general guidelines onHeparin monitoring, refer to the [facility] Directory of Services. :06 PT (Prothrobim Time) (40258) Comments: PATIENT WAS FASTINGPERFORMED BY: [facility] Zcrujq7998 Mohinder StuartNovant Healthmeaghan [place] [id number] INR 1.1 (Normal) Range: 0.8-1.2 Comments: Reference interval is for non-anticoagulated patients. . Suggested INR therapeutic range for Vitamin K anta gonist therapy: Standard Dose (moderate intensity therapeutic range): 2.0 - 3.0 Higher intensity therapeutic range 2.5 - 3.5 Prothrombin Time 11.0 {sec} (Normal) Range: 9.1-12.0 :51 HgA1C , Office (34871) HgA1C , Office 5.0 % (Normal) Range: [...] mg/dL (Normal) Range: 70-110 :03 Rapid Flu (01592 x 2) Influenza A Ag positive b (Normal) :27 METABOLIC PANEL, COMPREHENSIVE Comments: PATIENT WAS FASTINGPERFORMED BY: LabCoNewton Medical CenterNopade0134 [facility] [id number] (64100) ALT (SGPT) 25 [iU]/L (Normal) Range: 0-32 [...] Glucose, Serum 82 mg/dL (Normal) Range: 65-99 29-Oip-85478:27 LIPID PANEL (56363) Comments: PATIENT WAS FASTINGPERFORMED BY: [employer] [facility] [id number] LDL/HDL Ratio 0.9 {ratio_units} (Normal) Range: 0.0-3.2 LDL Cholesterol Calc 29 mg/dL (Normal) Range: 0-99 VLDL Cholesterol Ramandeep 17 mg/dL (Normal) Range: 5-40 HDL Cholesterol 32 mg/dL (Abnormal) Comments: According to ATP-III Guidelines, HDL-C >59 mg/dL is considered anegative risk factor for CHD. Cholesterol, Total 78 mg/dL (Abnormal) Range: 100-199 Triglycerides 84 mg/dL (Normal) Range: 0-149 08-Yjp-67870:27 TSH (97976) Comments: PATIENT WAS FASTINGPERFORMED BY: [employer]6370 [facility] [id number] TSH 3.990 {uIU/mL} (Normal) Range: 0.450-4.500 70-Fpn-33880:27 CBC WITH MANUAL DIFF Comments: PATIENT WAS FASTINGPERFORMED BY: [employer] Nskuge3537 [facility] [id number] Information: [id number] (58955) Immature Grans (Abs) 0.0 {x10E3/uL} Range: 0.0-0.1 [...] 0.0-8.3 9:39 Comments: Khanh ECLIA methodologyPerformed at: [facility] LabCoNancy Ville [id number] [place], [place] [id number] Director: Manuelito Mendez PhD, Phone: [phone] :[phone] CBCMD ANC 2.4 3/uL (Normal) Range: 2.0-7.7 [...] CHOL 130 mg/dL (Normal) Comments: <200 mg/dL Sopohxwfg846-323 mg/dL Borderline>240 mg/dL High Risk :39 MIACRE tMICROCREAT 16.5 {mg/g_CRE} (Normal) MIALB 23.3 mg/L (Normal) CREU 141.0 mg/dL (Normal) :39 PT INR 1.1 (Normal) PTP 13.6 s (Normal) Range: 11.9-14.4 :39 PTT PTTP 29.5 s (Normal) Range: 24.1-36.2 :17 Rapid Flu (64508 x 2) Influenza A Ag neg (Normal) :29 HgA1C , Office (58449) HgA1C , Office 5.9 % (Normal) Range: 4.6 - 7.1 :53 FT3 2.9 pg/mL (Normal) Range: 2.18-3.98 :53 T4F 1.26 ng/dL (Normal) Range: 0.76-1.46 :53 TPO 8 {IU/mL} (Normal) Range: 0-34 Comments: Performed at: [facility] [address] [id number] Director: Codi Robles MD, Phone: [phone] :[phone] TSH 1.23 {uIU/mL} (Normal) Range: 0.358-3.74 :04 HgA1C , Office (56377) HgA1C , Office 5.8 % (Normal) Range: 4.6 - 7.1 :26 CBCMD Comments: ORDERED TSH LIPID CMP CBCMD [facility].JACINDA ORDERED VITD CMP CBCD RBCM NORM C+C [...] CMP Comments: ORDERED TSH LIPID CMP CBCMD [facility] ORDERED VITD CMP CBCD GAP 8 [...] :26 LIPID Comments: ORDERED TSH LIPID CMP CBCHIGHLAND HOSPITALJACINDA ORDERED VITD CMP CBCD VLDL 21 mg/dL [...] (Normal) Comments: ORDERED TSH LIPID CMP CBCMD MIAMARVEL ORDERED VITD CMP CBCD Range: 0.358-3.74 :26 VITD 44.8 ng/mL (Normal) Comments: ORDERED TSH LIPID CMP CBCMD KRAIGJOSE ENRIQUE ORDERED VITD CMP CBCD Range: 30.0-100.0 Comments: Vitamin D deficiency has been defined by the [place] ofMedicine and an Endocrine Society practice guideline as alevel of serum 25-OH vitamin D less than 20 ng/mL (1,2).The Endocrine Society went on to further define vitamin Dinsufficiency as a level between 21 and 29 ng/mL (2).1. IOM ([place] of Medicine). 2010. Dietary reference intakes for calcium and D. [place]: The National Academies Press.2. Sami MF, Sophie MOORE, Xiomara LARES, et al. Evaluation, treatment, and prevention of vitamin D deficiency: an Endocrine Society clinical practice guideline. JCEM. 2010; 96(7): 1911-30.Performed at: [address] [id number] Director: Codi Robles MD, Phone: [phone] 27-Jan-20128:02 BILAT SCRN DIGITAL & CAD Radiology [...] Signed GP/GP Professional Interpretat ion Provided By: [facility] RadiologySinging River Gulfport, , To consult with a radiologist regarding this report, please call our 56Q7xcjizat line @ Dicta dani on 01/27/12 0813 by Faustina KING,GabrieleTranscribed on 01/27/12 0950 by ITS IMPORTSign by Faustina KING,Prashant on 01/27/12 0951 Sign by: Prashant Delgadillo MD 17-Tlj-936363:24 HgA1C , Office (31568) HgA1C , Office 5.7 % (Normal) Range: 4.6 - 7.1 99-Eom-977587:24 Blood Glucose , Office (02359) Blood Glucose , Office 89 (Normal) 57-Fll-863133:31 Urinalysis, Office (36605) UA - LEUKOCYTE ESTERASE Small (Normal) UA - NITRITE Positive (Normal) URINE UROBILINGN NITA TIMED Normal mg/dL (Normal) UA - PROTEIN 300 mg/dL (Normal) UA - PH 6.0 (Normal) UA - SPECIFIC GRAVITY 1.025 (Normal) UA - KETONES Small mg/dL (Normal) UA - BILIRUBIN Moderate (Normal) UA - GLUCOSE Negative (Normal) 04-Oct-20119:15 HgA1C , Office (63994) HgA1C , Office 6.8 % (Normal) Range: 4.6 - 7.1 :15 Blood Glucose , Office (42804) Blood Glucose , Office 162 (Normal) 36-Opt-147624:22 THYROID Radiology Report See Note (Normal) Comments: [...] 09/08/11 1330 Sign by: Prashant Delgadillo MD 60-Amn-75046:59 COMP METABOLIC GAP 9 (Normal) Range: 5-15 [...] COL Comments: PATIENT NOT FASTINGPERFORMED BY: [facility] Dfixep4912 [facility] [id number] Information: SRC:UR [id number] COUNT (02562) Antimicrobial MIHEAD (Normal) Comments: S = Susceptible; [...] pneumoniae (Normal) Urine Final report Culture,Comprehensive (Normal) 73-Lnd-58884:32 Urinalysis, Office (54505) UA - LEUKOCYTE ESTERASE Moderate (Normal) URINE UROBILINGN NITA TIMED Normal mg/dL (Normal) UA - PROTEIN 100 mg/dL (Normal) UA - PH 6.0 (Normal) UA - BLOOD Hemolyzed Large (Normal) UA - SPECIFIC GRAVITY 1.025 (Normal) UA - KETONES Negative mg/dL (Normal) UA - BILIRUBIN Negative (Normal) UA - GLUCOSE Negative (Normal) :28 Blood Glucose , Office (04511) Blood Glucose , Office 223 (Normal) :10 Urinalysis, Office (94624) UA - BILIRUBIN Small (Normal) UA - BLOOD Hemolyzed Large (Normal) UA - GLUCOSE Small (Normal) Comments: 100 UA - KETONES Negative mg/dL (Normal) UA - LEUKOCYTE ESTERASE Trace (Normal) UA - NITRITE Positive (Normal) UA - PH 5.0 (Normal) UA - PROTEIN 300 mg/dL (Normal) UA - SPECIFIC GRAVITY 1.020 (Normal) URINE UROBILINGN NITA TIMED 2 mg/dL (Normal) 6-Anb-841589:29 URINE GENESIS CULTURE-NITA COL Comments: PATIENT NOT FASTINGPERFORMED BY: [facility] Lkwoxr2040 [facility] [id number] Information: SRC:UR [id number] COUNT (56941) Antimicrobial MIHEAD (Normal) Comments: S = Susceptible; [...] mL (Normal) Urine Final report (Normal) Culture,Comprehensive 2-Qrk-344882:31 Urinalysis, Office (03882) UA - BILIRUBIN Large (Normal) UA - [...] (Abnormal) Range: 0.358-3.74 :28 HgA1C , Office (15224) HgA1C , Office 8.3 % (Abnormal) Range: 4.6 - 7.1 :28 Blood Glucose , Office (15486) Blood Glucose , Office 176 (Normal) :24 [...] 200-240 mg/dL Borderline >240 mg/dL High Risk 68-Cxa-615625:54 BRAIN/HEAD W/WO CONTRAST Radiology See Note Comments: [...] These are unchanged. Dictated on 10/14/10855 by Pattie Delgadillo MDeleTranscribed on 10/14/10855 by ITS IMPORTSign by Prashant Delgadillo MD on 02/09/11 1702 Sign by: Prashant Delgadillo MD :44 HgA1C , Office (61292) HgA1C , Office 7.4 % (Abnormal) Range: 4.6 - 7.1 :44 Blood Glucose , Office (33167) Blood Glucose , Office 206 (Normal) :37 [...] Report See Note (Normal) Comments: Exam Number: [id number] AMMOGRAPHY - BILATERAL SCREENING INDICATION:Routine annual screening [...] attaching a ResultCode to this exam. ADDENDUM: [id number] HPBI/MDS Reported By: PRASHANT DELGADILLO :14 HgA1C , Office (46097) HgA1C , Office 7.0 % (Normal) Range: 4.6 - 7.1 :14 Blood Glucose , Office (80178) Blood Glucose , Office 164 (Normal) :30 LASHA DIR SEMI-QL LASHA DIRECT 24 AU/mL (Normal) :30 ANTI-dsDNA AB 10 {IU/mL} (Normal) :30 TSH 6.39 {uIU/mL} (Abnormal) Range: 0.358-3.74 09-Xko-201631:35 C-REACTIVE PROTEIN (05292) Comments: PATIENT NOT FASTINGPERFORMED BY: [facility] [id number] C-Reactive Protein, Quant 6.5 mg/L (Abnormal) Range: 0.0-4.9 49-Gsb-528394:35 SED RATE ERYTHROCYTE (05790) Comments: PATIENT NOT FASTINGPERFORMED BY: [facility] [id number] Sedimentation Rate-Westergren 14 mm/h (Normal) Range: 0-20 76-Hcz-950702:35 RHEUMATOID FACTOR-QUANT (59203) Comments: PATIENT NOT FASTINGPERFORMED BY: [place] [address] [facility] [id number] RA Latex Turbid. 7.6 {IU/mL} (Normal) Range: 0.0-13.9 82-Tdc-473696:35 LASHA (ANTINUCLEAR ANTIBODY) Comments: PATIENT NOT FASTINGPERFORMED BY: [place] [address] [facility] [id number] (47664) LASHA Direct Positive (Abnormal) 44-Qkf-285935:35 T3, FREE (TRIDOTHYRONINE) (67796) Comments: PATIENT NOT FASTINGPERFORMED BY: [place] [address] [facility] [id number] Triiodothyronine,Free,Serum 2.8 pg/mL (Normal) Range: 2.0-4.4 72-Ihn-059908:35 T4, FREE (THYROXINE) (80682) Comments: PATIENT NOT FASTINGPERFORMED BY: [facility] [id number] T4,Free(Direct) 0.76 ng/dL (Abnormal) Range: 0.82-1.77 21-Kbb-746373:35 Anti-TPO Antibody (01321) Comments: PATIENT NOT FASTINGPERFORMED BY: [facility] [id number] Thyroid Peroxidase (TPO) Ab <6 {IU/mL} (Normal) Range: 0-34 31-Rqo-022797:35 TSH (12275) Comments: PATIENT NOT FASTINGPERFORMED BY: [facility] [id number] TSH 5.630 {uIU/mL} (Abnormal) Range: 0.450-4.500 Comments: Please note reference interval change 01-Pmp-968531:35 METABOLIC PANEL, Comments: PATIENT NOT FASTINGPERFORMED BY: [facility]6370 [facility] [id number] Information: [id number] COMPREHENSIVE (14565) ALT (SGPT) 55 [iU]/L (Abnormal) Range: 0-40 [...] Glucose, Serum 151 mg/dL (Abnormal) Range: 65-99 67-Ikg-316745:02 GENESIS CULTURE-OTHER (25044) Comments: PATIENT NOT FASTINGPERFORMED BY: REINALDO [facility] Shufhn1377 [address] [place] [id number] Information: SRC:THRT [id number] Result 1 Yeast isolated. (Normal) Comments: Moderate growthRequest for further identification must be madewithin 1 week. Upper Respiratory Culture Final report (Normal) 37-Dzl-19745:37 Rapid Strep Test, Office (95459) Rapid Strep Test, Office Negative (Normal) 82-Kqj-584172:11 THYROID (HP) Radiology Report See Note (Normal) Comments: Exam Number: [id number] CLINICAL:This is a 45-year-old female patient with [...] CHOL 147 mg/dL (Normal) Comments: <200 mg/dL Txqxbeiel207-427 mg/dL Borderline>240 mg/dL High Risk HDL 32 [...] :41 TSH 4.85 {uIU/mL} (Abnormal) Range: 0.358-3.74 74-Xnj-261784:50 URINE GENESIS CULTURE-NITA COL Comments: PATIENT NOT FASTINGPERFORMED BY: REINALDO [facility] Dkxugk3384 [facility] [id number] Information: SRC:INGRID VALE [id number] COUNT (39661) Result 1 Klebsiella pneumoniae Comments: 1,000 Colonies/mL [...] STrimethoprim/Sulfa S Urine Final report (Normal) Culture,Comprehensive 89-Jod-37310:55 Urinalysis, Office (69130) UA - LEUKOCYTE ESTERASE Small (Normal) UA - NITRITE Negative (Normal) URINE UROBILINGN NITA TIMED Normal mg/dL (Normal) UA - PROTEIN 30 mg/dL (Normal) UA - PH 6.0 (Normal) UA - BLOOD Negative (Normal) UA - SPECIFIC GRAVITY 1.020 (Normal) UA - KETONES Negative mg/dL (Normal) UA - BILIRUBIN Negative (Normal) UA - GLUCOSE Negative (Normal) 4-Doh-760411:37 PET/CT,TUMOR,BASE-THIGH,SUBS Radiology Report See Note (Normal) Comments: Exam Number: [id number] EXAM: Body PET study Head to Mid [...] 44:398P, 2003). w Reported By: ADELA MOLINA 3-Cfb-682620:00 PRANEETH+ELPU24 3467 ALBUMIN,U 37.7 % (Normal) HHYBE-5-RMCH,U 3.2 % (Normal) XWJZH-8-SOKW,U 7.6 % (Normal) BETA GLOB,U 23.1 % (Normal) GAMMA GLOB,U 28.5 % (Normal) PRANEETH RESULT,U Comment (Normal) Comments: No monoclonality detected. M-SPIKE,UR% SeeNote % (Normal) Comments: Result: Not Observed PROTEIN, U24 62.1 {mg/24_hr} Range: 30.0-150.0 (Normal) PROTEIN,UR 2.3 mg/dL (Normal) Range: 0.0-15.0 4-Qdl-006076:15 C-REACTIVE PROT < 2.90 mg/L (Normal) Range: 0.0-3.0 Comments: C-Reactive Protein (CRP) provides useful information for thediagnosis, therapy and monitoring of inflammatory processesand associated diseases. For the evaluation of Relative Riskfor Cardiovascular Dise ase, a High Sensitivity CRP (HSCRP)should be ordered. :15 CBCD,SMEAR DIFF PLT EST SeeNote (Normal) Comments: [...] <126 mg/dLsuggests IMPAIRED HOMEOSTASIS per A.D.A. criteria. 4-Luw-960285:15 ESR SED RATE 11 mm/h (Normal) Range: 0-20 3-Qmw-290711:15 LDH 197 U/L (Abnormal) Range: 100-190 0-Obp-752884:15 LIPID HDL 30 mg/dL (Abnormal) Comments: Reference [...] CHOL 154 mg/dL (Normal) Comments: <200 mg/dL Zyhrndhhq862-592 mg/dL Borderline>240 mg/dL High Risk 5-Hwn-684137:15 PROT.[id number] NOTE Comment (Normal) Comments: Protein electrophoresis scan will follow via computer,mail, or therapeutic sales specialist delivery.Performed at: [address] [id number] Director: Kamlesh Arana MD ALBUMIN,UR 54.2 % (Normal) LHGWW-8-RPNK,U 1.2 % (Normal) NKNUI-0-BHRD,U 9.4 % (Normal) BETA GLOB,U 23.4 % (Normal) GAMMA GLOB,U 11.8 % (Normal) M-SPIKE,U SeeNote % (Normal) Comments: Result: Not Observed PROTEIN,UR 13.6 mg/dL (Normal) Range: 0.0-15.0 9-Xgb-081980:15 SPE [id number] A/G RATIO 1.8 (Normal) Range: 0.7-2.0 GLOBULIN, [...] electrophoresis scan will follow via computer,mail, or therapeutic sales specialist delivery. M-SPIKE SeeNote g/dL (Normal) Comments: Result: Not Observed GAMMA GLOBULIN 0.4 g/dL (Abnormal) Range: 0.5-1.6 ALBUMIN 3.9 g/dL (Normal) Range: 3.2-5.6 ALPHA-1 GLOBUL 0.2 g/dL (Normal) Range: 0.1-0.4 ALPHA-2 GLOBUL 0.7 g/dL (Normal) Range: 0.4-1.2 BETA GLOBULIN 0.9 g/dL (Normal) Range: 0.6-1.3 PROTEIN,TOTAL 6.1 g/dL (Normal) Range: 6.0-8.5 17-Ayk-467513:28 BRAIN/HEAD WITHOUT CONTRAST Radiology Report See Note (Normal) Comments: Exam Number: [id number] CT SCAN OF BRAIN HISTORYLytic lesion, lymphoma. Scans were obtained at 2.5-mm intervals through the posterior fossaand 5-mm intervals through the remainder of the brai n. [facility] entstudy is compared to the [...] for confirmation. Reported By: TRUE NAGEL M.D. 58-Igr-705730:23 SPINE,CERVICAL WITHOUT CONTRAS Radiology Report See Note (Normal) Comments: Exam Number: [id number] CLINICAL:44 year old female with cervical radiculopathy. [...] tumor involvement. Reported By: SHARYN JASMINE M.D. 89-Rwy-271720:50 Blood Glucose , Office (45357) Blood Glucose , Office 105 (Normal) 10-Mbu-779685:50 HgA1C , Office (07218) HgA1C , Office 6.1 % (Normal) Range: 4.6 - 7.1 54-Yxm-933556:24 URINE GENESIS CULTURE-NITA COL Comments: PATIENT NOT FASTINGPERFORMED BY: [facility] CenterWtjsay0258 [facility] [id number] Information: SRC:UR [id number] COUNT (47285) Antimicrobial MIHEAD (Normal) Comments: S = Susceptible; [...] mL (Normal) Urine Final report (Normal) Culture,Comprehensive 71-Moj-407329:41 Urinalysis, Office (10102) UA - LEUKOCYTE ESTERASE Large (Normal) UA - NITRITE Negative (Normal) URINE UROBILINGN NITA TIMED Normal mg/dL (Normal) UA - PROTEIN 100 mg/dL (Normal) UA - PH 5.0 (Normal) UA - BLOOD Hemolyzed Large (Normal) UA - SPECIFIC GRAVITY 1.025 (Normal) UA - KETONES Negative mg/dL (Normal) UA - BILIRUBIN Negative (Normal) UA - GLUCOSE Negative (Normal) 3-Kit-723177:19 BLOOD GAS, O2 SAT ONLY - INITL Radiology Report See Note (Normal) Comments: Exam Number: [id number] Procedure completed. Please see MEDICAL RECORDS reports in PCI - OP - OP NOTE LET - LETTER. Reported By: BOONE CH M.D. 8-Tfc-327057:19 BLOOD GAS, O2 SAT ONLY - SUBSQ Radiology Report See Note (Normal) Comments: Exam Number: [id number] Procedure completed. Please see MEDICAL RECORDS reports in PCI - OP - OP NOTE LET - LETTER. Reported By: BOONE CH M.D. 5-Tlt-838020:19 BLOOD GAS, O2 SAT ONLY - SUBSQ Radiology Report See Note (Normal) Comments: Exam Number: [id number] Procedure completed. Please see MEDICAL RECORDS reports in PCI - OP - OP NOTE LET - LETTER. Reported By: BOONE CH M.D. 04-Aug-20096:45 RHC/LHC/CORS/LV Radiology Report See Note (Normal) Comments: Exam Number: [id number] Procedure completed. Please see MEDICAL RECORDS reports [...] MIXED GRAM POSITIVE ORGANISMS :58 Urinalysis, Office (48183) UA - BILIRUBIN Negative (Normal) UA - BLOOD Negative (Normal) UA - GLUCOSE Negative (Normal) UA - KETONES Negative mg/dL (Normal) UA - LEUKOCYTE ESTERASE Small (Normal) Comments: aw UA - NITRITE Negative (Normal) UA - PH 6.0 (Normal) UA - PROTEIN Negative mg/dL (Normal) UA - SPECIFIC GRAVITY 1.010 (Normal) URINE UROBILINGN NITA TIMED Normal mg/dL (Normal) :53 HgA1C , Office (30254) HgA1C , Office 5.7 % (Normal) Range: 4.6 - 7.1 :53 Blood Glucose , Office (01497) Blood Glucose , Office 133 (Normal) :24 [...] (Normal) Range: 6.4-8.2 :53 HgA1C , Office (28421) HgA1C , Office 10.0 % (Abnormal) Range: 4.6 - 7.1 :53 Blood Glucose , Office (67355) Blood Glucose , Office 410 (Normal) :46 [...] 11.6-14.6 WBC 4.0 K/mm3 (Abnormal) Range: 4.4-11.0 5-Tsk-371436:46 COMP METABOLIC A/G 1.2 {RATIO} (Normal) Range: [...] mg/L (Normal) UR CREAT 186.7 mg/dL (Normal) 84-Owc-165599:11 LIPID Comments: PATIENT NOT FASTING/DEMANDED TO BE [...] mg/dL VLDL 31 mg/dL (Normal) Range: 40 02-Bfj-323327:11 LIVER Comments: PATIENT NOT FASTING/DEMANDED TO BE DRAWN ALT 43 U/L (Normal) Range: 30-65 D BILI 0.07 mg/dL (Normal) Range: 0.00-0.30 T BILI 0.35 mg/dL (Normal) Range: 0.00-1.00 ALB 3.4 g/dL (Normal) Range: 3.4-5.0 ALK P 210 U/L (Abnormal) Range: 50-136 AST 27 U/L (Normal) Range: 15-37 T PROT 6.4 g/dL (Normal) Range: 6.4-8.2 91-Jfs-235645:23 Urinalysis, Office (25973) Comments: done BC UA - BILIRUBIN Negative (Normal) UA - BLOOD Hemolyzed Large (Normal) UA - GLUCOSE Large (Normal) Comments: > 1000mg/dL UA - KETONES Negative mg/dL (Normal) UA - LEUKOCYTE ESTERASE Moderate (Normal) UA - NITRITE Negative (Normal) UA - PH 6.0 (Normal) UA - PROTEIN 30 mg/dL (Normal) UA - SPECIFIC GRAVITY 1.010 (Normal) URINE UROBILINGN NITA TIMED Normal mg/dL (Normal) 69-Hxp-601923:44 MYOCARD PERF SPECT REST/STRESS Radiology Report See Note (Normal) Comments: Exam Number: [id number] MYOCARDIAL PERFUSION SCAN TECHNIQUEThe patient was injected [...] of 37%. Reported By: NOE MORRIS M.D. 10-Tup-15781:39 SPINE, LUMBAR W/W/O CONTRAST Radiology Report See Note (Normal) Comments: Exam Number: [id number] MAGNETIC RESONANCE IMAGING OF THE LUMBAR SPINE [...] other abnormality. Reported By: SUSAN GOMEZ M.D. 21-Xho-020646:04 CULTURE, URINE URINE CULTURE See Note {CFU/mL} (Normal) Comments: COLONY COUNT 25,000-50,000 ORGANISM 1: MIXED GRAM POSITIVE ORGANISMS 58-Lgz-464419:15 Urinalysis, Office (85739) UA - LEUKOCYTE ESTERASE Small (Normal) Comments: aw UA - NITRITE Negative (Normal) UA - PH 5.0 (Normal) UA - PROTEIN Negative mg/dL (Normal) URINE UROBILINGN NITA TIMED Normal mg/dL (Normal) UA - BILIRUBIN Negative (Normal) UA - BLOOD Negative (Normal) UA - GLUCOSE Negative (Normal) UA - KETONES Negative mg/dL (Normal) UA - SPECIFIC GRAVITY 1.025 (Normal) 76-Cwa-139716:09 Blood Glucose , Office (71343) Blood Glucose , Office 231 (Normal) 70-Plp-575959:09 HgA1C , Office (84993) HgA1C , Office 7.1 % (Normal) Range: 4.6 - 7.1 :42 CBCD,SMEAR DIFF CELLS COUNTED 100 (Normal) HCT [...] for patient's is the eGFRmultiplied by 1.212. [facility] Laboratory uses the abbreviated Modification [...] Disease W/O Kidney Disease>/= 90 Stage One Efmtao93 - 89 Stage Two Suspect Decreased GFR30 [...] T PROT 6.5 g/dL (Normal) Range: 6.4-8.2 :42 LIPID CHOL 182 mg/dL (Normal) Comments: <200 [...] mg/dL VLDL 36 mg/dL (Normal) Range: 5-40 58-Dcj-151041:42 MICROALB:CRE UR MALB:CREAT 35.4 {mg/g_CRE} (Abnormal) MICROALBUMIN,UR 54.7 mg/L (Normal) UR CREAT 154.6 mg/dL (Normal) 29-Byz-965211:42 TSH 2.57 {uIU/mL} (Normal) Range: 0.34-4.82 68-Btj-322264:40 CULTURE, URINE URINE CULTURE See Note {CFU/mL} (Normal) Comments: COLONY COUNT 1000-10,000 ORGANISM 1: MIXED GRAM POS & NEG ORGANISMS 48-Mla-757415:36 Urinalysis, Office (63146) UA - BILIRUBIN Negative (Normal) UA - BLOOD Non Hemolyzed Trace (Normal) UA - KETONES Negative mg/dL (Normal) UA - LEUKOCYTE ESTERASE Moderate (Normal) UA - NITRITE Negative (Normal) UA - PH 5.0 (Normal) UA - PROTEIN Negative mg/dL (Normal) UA - SPECIFIC GRAVITY 1.015 (Normal) URINE UROBILINGN NITA TIMED Normal mg/dL (Normal) UA - GLUCOSE Negative (Normal) 92-Qxa-676127:20 CULTURE, URINE URINE CULTURE See Note {CFU/mL} (Normal) Comments: COLONY COUNT 25,000-50,000 ORGANISM 1: MIXED GRAM POS & NEG ORGANISMS :12 Urinalysis, Office (22610) UA - BILIRUBIN Negative (Normal) UA - BLOOD Negative (Normal) UA - GLUCOSE Negative (Normal) UA - KETONES Negative mg/dL (Normal) UA - LEUKOCYTE ESTERASE Small (Normal) UA - NITRITE Negative (Normal) UA - PH 6.0 (Normal) UA - PROTEIN Negative mg/dL (Normal) UA - SPECIFIC GRAVITY 1.005 (Normal) URINE UROBILINGN NITA TIMED Normal mg/dL (Normal) 14-Izc-628835:08 CBCD,SMEAR DIFF CELLS COUNTED 100 (Normal) EOS [...] 47-70 WBC 5.1 K/mm3 (Normal) Range: 4.4-11.0 92-Vmt-529595:08 COMP METABOLIC A/G 1.5 {RATIO} (Normal) Range: [...] Range: 0.34-4.82 :28 Blood Glucose , Office (65980) Blood Glucose , Office 124 (Normal) :28 HgA1C , Office (70121) HgA1C , Office 6.1 % (Normal) Range: 4.6 - 7.1 :38 CERULOPLAS 1560 21.3 mg/dL (Normal) Range: 17.9-53.3 Comments: Performed At: [address] [id number] FERRITIN 189 ng/mL (Normal) Range: 8-252 :38 HEP-ABC 203883 HB CORE [id number] SeeNote (Normal) Comments: Result: Negative HB SURF [...] Please note reference interval change HEP A AB,T.4440 SeeNote (Normal) Comments: Result: Negative HEP A [...] T PROT 6.5 g/dL (Normal) Range: 6.4-8.2 :02 THYROID (HP) Radiology Report See Note (Normal) Comments: Exam Number: [id number] THYROID ULTRASOUND HISTORYThyromegaly. High-resolution, real-time linear images [...] is recommended. Reported By: TRUE NAGEL M.D. 79-Dug-508447:05 Blood Glucose , Office (96895) Blood Glucose , Office 135 (Normal) 99-Rwq-954622:05 HgA1C , Office (38262) HgA1C , Office 5.6 % (Normal) Range: 4.6 - 7.1 50-Uru-95824:02 CBCD,SMEAR DIFF ANISO 1+ (Normal) CELLS COUNTED [...] Report See Note (Normal) Comments: Exam Number: [id number] CT BRAIN WITHOUT AND WITH INTRAVENOUS CONTRAST [...] clinically warranted. Reported By: AIDAN MASON M.D. 31-Tus-497985:30 CBCD Comments: CALL [phone] TO [phone] BASO% 0.8 % (Normal) Range: 0-1 EO% [...] 1+ANISOCYTOSIS WBC 3.8 K/mm3 (Abnormal) Range: 4.4-11.0 33-Oco-575879:30 COMP METABOLIC Comments: CALL [phone] TO [phone] A/G 1.5 {RATIO} (Normal) Range: 0.9-2.4 ALB [...] :30 LDH 206 U/L (Abnormal) Comments: CALL [phone] TO [phone] Range: 100-190 :30 URIC 5.7 mg/dL (Normal) Comments: CALL [phone] TO [phone] Range: 2.6-6.0 :30 CULT, DP WOUND Comments: [...] mg/dL (Abnormal) Range: 40-230 Comments: Performed At: [address], [place] [id number] :41 LDH 211 U/L (Abnormal) Range: 100-190 [...] P-IMM (Normal) Comments: REPORT SIGNED: MATEO CASTANEDA 01/31/0702-Nov-20060-Gpx-095486:25 T3UP Comments: COMMENTS: PT IN CATHLABPrecautions*: NOT APPLICABLE T3 UPTAKE 31 % (Normal) Range: 30-39 T7 (FTI) 2.5 (Normal) Range: 1.4-4.5 :25 T4 THYROXIN 8.1 ug/dL (Normal) Comments: COMMENTS: PT IN CATHLABPrecautions*: NOT APPLICABLE Range: 4.8-13.9 3-Dso-766427:25 TSH 1.78 {uIU/mL} (Normal) Comments: COMMENTS: PT IN CATHLABPrecautions*: NOT APPLICABLE Range: 0.34-4.82 :20 BMP Comments: COMMENTS: BED 13 FASTPrecautions*: NOT APPLICABLE BUN 18 mg/dL (Normal) [...] 136-145 :20 CBCD Comments: COMMENTS: BED 13 FASTPrecautions*: NOT APPLICABLE BAND 9 % (Abnormal) [...] 47-70 WBC 23.9 K/mm3 (Abnormal) Range: 4.4-11.0 52-Grs-38484:30 AFB C&S 486690 Comments: Precautions*: CHEMO PRECAUTIONSSPECIMEN DESCRIPTION: #2 SAME [...] CHEMO PRECAUTIONSSPECIMEN DESCRIPTION: #1 SAME SOURCE ec-2 3282 (Normal) Comments: ` TESTING PERFORMED AT [facility]. ORIGINAL REPORT ON FILE IN LAB CONTAINS ADDITIONAL TEST SITE INFORMATION. 0069 CULTURE, FUNGUS NO YEAST OR MOLD ISOLATED AFTER 4 WEEKS. :30 13-D CYTOLOGY, SeeNote Comments: Result: SEE PATHOLOGY REPORT Specimen submitted to Anatomical Pathology Department for testing. ec-2 BF/CSF (Normal) 0069 :30 82-Svb-68311:30 FLUID P-FLU (Normal) Comments: OPERATION Not noted HISTORY Lymphoma PRE-OPERATIVE DIAGNOSIS Pain injection lower back TISSUE SUBMITTED CSF for cytology DIAGNOSIS (CYTOLOGY) Cerebrospinal fluid (cytospins and cell block): Negat scott for malignant cells. MICHELLE:luna 09/08/06 CYTOLOGY STUDY The specimen is bloody. [...] DRAWN 07/22/06-TEST MISSED Range: 100-190 :51 SPE 429851 A/G RATIO 1.3 (Normal) Range: 0.7-2.0 ALBUMIN [...] Evidenceof monoclonal protein is not apparent.Performed At: [address] [id number] M-SPIKE SeeNote (Normal) Comments: Result: Not Observed NOTE: Comment (Normal) Comments: Protein electrophoresis scan will follow via mail orcourier. PROTEIN,TOTAL 6.5 g/dL (Normal) Range: 6.0-8.5 :49 Blood Glucose , Office (76107) Blood Glucose , Office 84 (Normal) :49 HgA1C , Office (93962) HgA1C , Office 6.6 % (Normal) Range: [...] Indication: Diarrhea BMI 34.0-34.9,adult : Eprescribed prescriptions (G85) Indication: BMI 34.0-34.9,adult BMI 34.0-34.9,adult : Eprescribed [...] eye, right : Follow up tomorrow with [facility] Indication: Pain, eye, right Need for [...] Paroxysmal tachycardia Planned Observations CPK MB FRACTION (08013)Indication: SOB (shortness of breath) On: Request Comments: stat ASSAY, TROPONIN, QUANTITATIVE (aka Troponin I) (55112)Indication: SOB (shortness of breath) On: Request Comments: stat CBC W/AUTO DIFF WBC (00304)Indication: SOB (shortness of breath) On: 08 Request Comments: stat METABOLIC PANEL, COMPREHENSIVE (29905)Indication: SOB (shortness of breath) On: Request Comments: stat D-Dimer (87097)Indication: SOB (shortness of breath) On: 08 Request Comments: stat BNTP (84769)Indication: SOB (shortness of breath) On: Request Comments: stat CBC with auto diff (87838)Indication: Diabetes mellitus type II, controlled On: :03 Request LIPID PANEL (15064)Indication: Diabetes mellitus type II, controlled On: : Request METABOLIC PANEL, COMPREHENSIVE (28798)Indication: Diabetes mellitus type II, controlled On: :03 Request HGB A1C (20734)Indication: Diabetes mellitus type II, controlled On: : Request TSH (THYROID STIMULATING HORMONE) (76237)Indication: Acquired hypothyroidism On: : Request Metabolic Panel, Basic (39667)Indication: Hyponatremia On: :00 Request TSH (92675)Indication: Diabetes mellitus type II, controlled On: 48 Request Vitamin B-12 (cyanocobalamin) (55867)Indication: B12 deficiency On: :45 Request CBC WITH MANUAL DIFF (44791)Indication: B12 deficiency On: Request T3, FREE (TRIDOTHYRONINE) (50958)Indication: Thyroid nodule On: 48 Request Comments: add to labs already drawn T4, FREE (THYROXINE) (44562)Indication: Thyroid nodule On: 47 Request Comments: add to labs already drawn Digoxin (01006)Indication: Cardiomyopathy On: :44 Request LIPID PANEL (11377)Indication: Mixed hyperlipidemia On: :43 Request TSH (67573)Indication: Acquired hypothyroidism On: :43 Request Vitamin D Hydroxy (92010)Indication: Vitamin D deficiency On: :43 Request YMVDE-YTINDGCKEUL-VWOOR (10024)Indication: Fatty liver On: :42 Request VITAMIN B-12 (CYANOCOBALAMIN) (35724)Indication: Fatigue On: :42 Request URINALYSIS, W/ MICRO (02557)Indication: Diabetes mellitus type II, controlled On: :30 Request MICROALBUMIN: CREATININE RATIO (21268) AND (28040)Indication: Diabetes mellitus type II, controlled On: : Request CBC with auto diff (26606)Indication: Diabetes mellitus type II, controlled On: : Request METABOLIC PANEL, COMPREHENSIVE (62431)Indication: Diabetes mellitus type II, controlled On: :29 Request HGB A1C (26974)Indication: Diabetes mellitus type II, controlled On: 61-Cpd-093050:29 Request HEPATIC FUNCTION PANEL (89494)Indication: Elevated liver enzymes On: 1-Ugr-827293:38 Request Comments: do in hospital tuesday when get US Metabolic Panel, Comprehensive (12300)Indication: Epigastric pain On: 46-Hif-554308:54 Request Sed Rate Erythrocyte (32866)Indication: Epigastric pain On: :54 Request CBC, Platelets & Auto Diff (76415)Indication: Epigastric pain On: :54 Request OVA & PARASITE DIR SMEAR (75406)Indication: Diarrhea On: :53 Request OCCULT BLOOD FECES SCREEN (44399)Indication: Diarrhea On: :53 Request LEUKOCYTE COUNT, FECAL (31335)Indication: Diarrhea On: :53 Request C-DIFFICILE, STOOL (11494)Indication: Diarrhea On: :53 Request GENESIS CULTURE-STOOL (93737)Indication: Diarrhea On: 91-Pzg-989851:53 Request Magnesium (30035)Indication: Fatigue On: 37-Poa-104205:42 Request Vitamin B-12 (cyanocobalamin) (00139)Indication: Fatigue On: 57-Koi-678929:41 Request MICROALBUMIN: CREATININE RATIO (44773) AND (49221)Indication: Diabetes mellitus type II, controlled On: 43-Lad-515704:40 Request LIPID PANEL (10070)Indication: Mixed hyperlipidemia On: 72-Age-393581:39 Request CBC W/AUTO DIFF WBC (49916)Indication: Fatty liver On: 74-Jsa-865712:30 Request METABOLIC PANEL, COMPREHENSIVE (29298)Indication: Fatty liver On: 92-Rel-261871:30 Request Vitamin D Hydroxy (78646)Indication: Vitamin D deficiency On: 40-Lga-633401:30 Request TSH (44128)Indication: Acquired hypothyroidism On: 89-Wyx-318766:30 Request Digoxin (61265)Indication: Cardiomyopathy On: 23-Kwc-166595:29 Request LIPASE (49326)Indication: Epigastric pain On: 59-Kki-061573:28 Request AMYLASE (29451)Indication: Epigastric pain On: 26-Tnh-580885:28 Request URINE GENESIS CULTURE-IDENTIFICATN (15223)Indication: Leukocytes in urine On: 26-Pmk-962335:38 Request MICROALBUMIN: CREATININE RATIO (74591) AND (56943)Indication: Essential hypertension with goal blood pressure less than 130/80 On: :58 Request CBC W/AUTO DIFF WBC (41081)Indication: Essential hypertension with goal blood pressure less than 130/80 On: :58 Request METABOLIC PANEL, COMPREHENSIVE (76911)Indication: Essential hypertension with goal blood pressure less than 130/80 On: :58 Request XVUIS-DEBQOZCXVVG-IEWJS (43836)Indication: Abnormal tumor markers On: :57 Request Vitamin D Hydroxy (34137)Indication: Vitamin D deficiency On: :09 Request LIPOPROTEIN, BLD, BY NMR (39367)Indication: Mixed hyperlipidemia On: :09 Request CBC W/AUTO DIFF WBC (71634)Indication: Diabetes mellitus type II, controlled On: :09 Request METABOLIC PANEL, COMPREHENSIVE (73519)Indication: Diabetes mellitus type II, controlled On: :09 Request Potassium Serum (22291)Indication: Hypopotassemia On: 19-Ikm-625170:02 Request JGPSN-WYYNSOOAXWV-ACQCA (05896)Indication: Fatty liver On: 60-Noz-162792:57 Request MICROALBUMIN: CREATININE RATIO (11257) AND (25694)Indication: Essential hypertension with goal blood pressure less than 130/80 On: :45 Request CBC W/AUTO DIFF WBC (43109)Indication: Essential hypertension with goal blood pressure less than 130/80 On: :45 Request METABOLIC PANEL, COMPREHENSIVE (79383)Indication: Essential hypertension with goal blood pressure less than 130/80 On: :45 Request Vitamin D Hydroxy (46479)Indication: Vitamin D deficiency On: :45 Request TSH (24724)Indication: Acquired hypothyroidism On: :45 Request LIPID PANEL (57061)Indication: Mixed hyperlipidemia On: :45 Request CBC W/AUTO DIFF WBC (53985)Indication: Diabetes mellitus type II, controlled On: :28 Request ENDRJ-RZOMDOOROBY-LJPUU (07242)Indication: Fatty liver On: :03 Request METABOLIC PANEL, COMPREHENSIVE (19441)Indication: Mixed hyperlipidemia On: :55 Request LIPOPROTEIN, BLD, BY NMR (68409)Indication: Mixed hyperlipidemia On: : Request Metabolic Panel, Basic (67559)Indication: Hypopotassemia On: :55 Request Comments: 10 days CBC (AUTO) (41653)Indication: Uncontrolled type II diabetes mellitus On: : Request Vitamin D Hydroxy (97489)Indication: Vitamin D deficiency On: : Request MICROALBUMIN: CREATININE RATIO (23743) AND (20456)Indication: Uncontrolled type II diabetes mellitus On: : Request METABOLIC PANEL, COMPREHENSIVE (73462)Indication: Essential hypertension with goal blood pressure less than 130/80 On: :02 Request SEWOT-OKZRHHSIWAM-PCXSQ (79890)Indication: Fatty liver On: : Request LIPID PANEL (89912)Indication: Mixed hyperlipidemia On: : Request TSH (20590)Indication: Thyroid nodule On: : Request CBC W/AUTO DIFF WBC (08373)Indication: Uncontrolled type II diabetes mellitus On: :47 Request METABOLIC PANEL, COMPREHENSIVE (05603)Indication: Uncontrolled type II diabetes mellitus On: :47 Request LIPID PANEL (79976)Indication: Mixed hyperlipidemia On: :47 Request Vitamin D Hydroxy (59592)Indication: Vitamin D deficiency On: :47 Request MKMCR-KURBJKSEKNI-VSWHL (56551)Indication: Fatty liver On: : Request CBC W/AUTO DIFF WBC (82472)Indication: Uncontrolled type II diabetes mellitus On: :26 Request LIPID PANEL (72527)Indication: Mixed hyperlipidemia On: : Request MICROALBUMIN: CREATININE RATIO (04507) AND (87990)Indication: Uncontrolled type II diabetes mellitus On: :25 Request TSH (38731)Indication: Acquired hypothyroidism On: :25 Request METABOLIC PANEL, COMPREHENSIVE (30639)Indication: Essential hypertension with goal blood pressure less than 130/80 On: :25 Request Vitamin D Hydroxy (07748)Indication: Vitamin D deficiency On: :25 Request CALCIFEDIOL (68756)Indication: Vitamin D deficiency On: 82-Ddx-693405:44 Request Comments: to be done Jun 2015 after done with ergocalciferol URINE GENESIS CULTURE (NITA COL COUNT) (91744)Indication: UTI (lower urinary tract infection) On: 5-Mxz-231458:22 Request LIPID PANEL (86703)Indication: Mixed hyperlipidemia On: 1-Eir-693045:15 Request CBC W/AUTO DIFF WBC (68120)Indication: Uncontrolled type II diabetes mellitus On: 7-Fgr-510803:14 Request METABOLIC PANEL, COMPREHENSIVE (32544)Indication: Uncontrolled type II diabetes mellitus On: 1-Hay-836881:14 Request TSH (06980)Indication: Acquired hypothyroidism On: 4-Bct-007310:14 Request XDAZU-OQMUCCVFFSD-BNXNX (76927)Indication: Fatty liver On: 2-Pzf-743670:14 Request CBC, Platelets & Auto Diff (34398)Indication: HX, PERSONAL, MALIGNANCY, LYMPHATIC NEC On: 71-Idp-83406:07 Request CBC WITH MANUAL DIFF (46379)Indication: Abnormal glucose tolerance test On: :33 Request MICROALBUMIN: CREATININE RATIO (93703) AND (81413)Indication: Abnormal glucose tolerance test On: :33 Request LIPID PANEL (35467)Indication: Mixed hyperlipidemia On: :31 Request METABOLIC PANEL, COMPREHENSIVE (98516)Indication: Abnormal glucose tolerance test On: :31 Request URINE GENESIS CULTURE-NITA COL COUNT ([id number])Indication: Dysuria On: 82-Dlg-[id number]:03 Request RETICULOCYTE COUNT (87668)Indication: Anemia On: :37 Request Iron (66310)Indication: Anemia On: :37 Request Ferritin (51532)Indication: Anemia On: :37 Request CBC (Auto) (13881)Indication: Anemia On: :37 Request CBC, Platelets & Auto Diff (58449)Indication: Fever On: 62-Gkb-78497:03 Request Metabolic Panel, Comprehensive (16387)Indication: Fever On: :03 Request HgA1C , Office (62580)Indication: Abnormal glucose tolerance test On: :55 Request CBC WITH MANUAL DIFF (13524)Indication: Abnormal glucose tolerance test On: :53 Request METABOLIC PANEL, COMPREHENSIVE (08393)Indication: Abnormal glucose tolerance test On: :53 Request LIPID PANEL (99856)Indication: Mixed hyperlipidemia On: :53 Request WJHJX-GWDPRSKPCBL-ZYDFH (48260)Indication: Fatty liver On: :53 Request PTT (Activated Partial Thromboplastin Time) ([id number])Indication: Fatty liver On: :53 Request PT (Prothrobim Time) ([id number])Indication: Fatty liver On: :53 Request MICROALBUMIN: CREATININE RATIO ([id number]) AND ([id number])Indication: Abnormal glucose tolerance test On: 97-Vgv-777189:49 Request Anti-TPO Antibody ([id number])Indication: Acquired hypothyroidism On: 48-Bfp-665996:14 Request Comments: 1 month TSH ([id number])Indication: Acquired hypothyroidism On: 57-Jca-597635:13 Request Comments: 1 month T4, FREE (THYROXINE) ([id number])Indication: Acquired hypothyroidism On: :13 Request Comments: 1 month T3, FREE (TRIDOTHYRONINE) ([id number])Indication: Acquired hypothyroidism On: 84-Jqx-299156:13 Request Comments: 1 month CBC WITH MANUAL DIFF ([id number])Indication: Abnormal glucose tolerance test On: :38 Request METABOLIC PANEL, COMPREHENSIVE ([id number])Indication: Abnormal glucose tolerance test On: :38 Request LIPID PANEL ([id number])Indication: Mixed hyperlipidemia On: :38 Request MICROALBUMIN: CREATININE RATIO ([id number]) AND ([id number])Indication: Abnormal glucose tolerance test On: 00-Zoa-415924:56 Request CBC WITH MANUAL DIFF ([id number])Indication: Elevated LFTs On: 05-Zhn-012760:56 Request METABOLIC PANEL, COMPREHENSIVE ([id number])Indication: Elevated LFTs On: 80-Lyg-894090:56 Request LIPID PANEL ([id number])Indication: Mixed hyperlipidemia On: 71-Jup-842809:56 Request TSH ([id number])Indication: Acquired hypothyroidism On: 90-Hxc-395171:56 Request CBC WITH MANUAL DIFF ([id number])Indication: Essential hypertension with goal blood pressure less than 130/80 On: :34 Request TSH ([id number])Indication: Acquired hypothyroidism On: :34 Request METABOLIC PANEL, COMPREHENSIVE ([id number])Indication: Fatty liver On: :33 Request LIPID PANEL (20943)Indication: Mixed hyperlipidemia On: :33 Request MICROALBUMIN: CREATININE RATIO ([id number]) AND (85831)Indication: Uncontrolled type II diabetes mellitus On: 80-Xjs-98014:46 Request TSH ([id number])Indication: Acquired hypothyroidism On: 38-Dnr-64633:46 Request LIPID PANEL ([id number])Indication: Mixed hyperlipidemia On: :45 Request METABOLIC PANEL, COMPREHENSIVE ([id number])Indication: Elevated LFTs On: :45 Request HgA1C , Office ([id number])Indication: Uncontrolled type II diabetes mellitus On: :28 Request URINE GENESIS CULTURE-NITA COL COUNT ([id number])Indication: Cystitis, acute On: :43 Request URINE GENESIS CULTURE-IDENTIFICATN ([id number])Indication: Dysuria On: 04-Jun-20117:10 Request CBC WITH MANUAL DIFF ([id number])Indication: Headache On: 93-Bkh-465101:56 Request METABOLIC PANEL, COMPREHENSIVE ([id number])Indication: Headache On: 15-Wze-978889:56 Request LIPID PANEL ([id number])Indication: Mixed hyperlipidemia On: 60-Edj-432395:56 Request TSH ([id number])Indication: Acquired hypothyroidism On: 40-Syk-066115:56 Request METABOLIC PANEL, COMPREHENSIVE ([id number])Indication: Uncontrolled type II diabetes mellitus On: Request HEPATIC FUNCTION PANEL ([id number])Indication: Mixed hyperlipidemia On: : Request LIPID PANEL ([id number])Indication: Mixed hyperlipidemia On: Request LIPID PANEL ([id number])Indication: Mixed hyperlipidemia On: :39 Request MICROALBUMIN: CREATININE RATIO ([id number]) AND ([id number])Indication: Uncontrolled type II diabetes mellitus On: Request CBC WITH MANUAL DIFF ([id number])Indication: Essential hypertension with goal blood pressure less than 130/80 On: 39 Request METABOLIC PANEL, COMPREHENSIVE ([id number])Indication: Elevated LFTs On: 39 Request TSH ([id number])Indication: Acquired hypothyroidism On: :36 Request TSH ([id number])Indication: Thyroid nodule On: :20 Request METABOLIC PANEL, COMPREHENSIVE ([id number])Indication: Elevated LFTs On: : Request LIPID PANEL ([id number])Indication: Mixed hyperlipidemia On: :19 Request C-REACTIVE PROTEIN ([id number])Indication: Abnormal findings on diagnostic imaging of other specified body structures On: 24-Zyy-737004: Request SED RATE ERYTHROCYTE ([id number])Indication: Abnormal findings on diagnostic imaging of other specified body structures On: 12-Gag-651569: Request LDH (LD) (LACTATE DEHYDROGENASE) ([id number])Indication: Abnormal findings on diagnostic imaging of other specified body structures On: 55-Ydg-624521: Request Urine Protein Electrophoresis (UPEP) ([id number])Indication: Abnormal findings on diagnostic imaging of other specified body structures On: 98-Lyk-267473: Request Serum Protein Electrophoresis (SPEP) (51711)Indication: Abnormal findings on diagnostic imaging of other specified body structures On: 26-Hwe-888759: Request METABOLIC PANEL, COMPREHENSIVE ([id number])Indication: Diabetes mellitus type II, controlled On: : Request LIPID PANEL ([id number])Indication: Mixed hyperlipidemia On: : Request URINE GENESIS CULTURE-INTA COL COUNT ([id number])Indication: Dysuria On: 00-Nap-971413:58 Request HEPATIC FUNCTION PANEL ([id number])Indication: Elevated LFTs On: 40-Mww-655131:18 Request LIPID PANEL ([id number])Indication: Mixed hyperlipidemia On: 26-Qah-285793:17 Request MICROALBUMIN: CREATININE RATIO ([id number]) AND ([id number])Indication: Uncontrolled type II diabetes mellitus On: 6-Olt-991224:47 Request CBC WITH MANUAL DIFF ([id number])Indication: Uncontrolled type II diabetes mellitus On: 3-Onh-212344:47 Request METABOLIC PANEL, COMPREHENSIVE ([id number])Indication: Uncontrolled type II diabetes mellitus On: 0-Igp-743536:47 Request HEPATIC FUNCTION PANEL ([id number])Indication: Elevated LFTs On: 7-Ghb-995964:45 Request LIPID PANEL ([id number])Indication: Mixed hyperlipidemia On: 0-Ogw-872657:44 Request HEPATIC FUNCTION PANEL ([id number])Indication: Fatty liver On: 6-Iil-782136:30 Request LIPID PANEL ([id number])Indication: Mixed hyperlipidemia On: 0-Mev-465398:30 Request URINE GENESIS CULTURE (NITA COL COUNT) ([id number])Indication: Low back pain potentially associated with radiculopathy On: 90-Tab-839556:03 Request MICROALBUMIN: CREATININE RATIO ([id number]) AND ([id number])Indication: Dysuria On: 84-Zel-683856:05 Request LIPID PANEL ([id number])Indication: Dysuria On: 38-Naj-418510:05 Request TSH ([id number])Indication: Dysuria On: 85-Bsq-614798:05 Request METABOLIC PANEL, COMPREHENSIVE ([id number])Indication: Dysuria On: 06-Tab-556689:04 Request CBC WITH MANUAL DIFF ([id number])Indication: Dysuria On: 48-Zbr-742022:04 Request URINE GENESIS CULTURE-NITA COL COUNT ([id number])Indication: Dysuria On: 82-Scv-643751:45 Request URINE GENESIS CULTURE (NITA COL COUNT) ([id number])Indication: Dysuria On: 10-Gie-207135:17 Request METABOLIC PANEL, COMPREHENSIVE ([id number])Indication: Fatty liver On: 80-Cud-48025:58 Request Magnesium ([id number])Indication: Palpitations On: 35-Tfo-64249:51 Request TSH ([id number])Indication: Palpitations On: 52-Juu-42920:51 Request METABOLIC PANEL, COMPREHENSIVE ([id number])Indication: Palpitations On: 47-Ofe-34180:51 Request CBC WITH MANUAL DIFF ([id number])Indication: Palpitations On: 15-Tdg-39503:51 Request GGT (Gamma Glutamyl Transferase) ([id number])Indication: Elevated LFTs On: 22-Cfk-466804:16 Request HEPATIC FUNCTION PANEL ([id number])Indication: Elevated LFTs On: 13-Waf-577588:16 Request VITAMIN B-12 (CYANOCOBALAMIN) ([id number])Indication: Fatigue On: :23 Request MICROALBUMIN URINE QUANT ([id number])Indication: Diabetes mellitus type II, controlled On: 43-Nec-28393:22 Request TSH ([id number])Indication: Fatigue On: :22 Request CBC WITH MANUAL DIFF ([id number])Indication: Diabetes mellitus type II, controlled On: :22 Request METABOLIC PANEL, COMPREHENSIVE ([id number])Indication: Diabetes mellitus type II, controlled On: :22 Request LIPID PANEL ([id number])Indication: Mixed hyperlipidemia On: :22 Request HEPATIC FUNCTION PANEL ([id number])Indication: Mixed hyperlipidemia On: 71-Nvw-233810:48 Request LIPID PANEL ([id number])Indication: Mixed hyperlipidemia On: 82-Pwv-231910:48 Request Comments: in 3 mos Planned Encounters Medical; [facility] 1 Month FU - On: 12-Sep-2018 8:00 [facility] Fast DO, Sangeetha A Fast DO, Sangeetha A Planned Procedures Echo CompleteBy: Fast DO, Sangeetha A On: 04-Sep-2018 Intent Fast DO, Sangeetha A CTA CHEST W/W/O CONTRAST ([id number])By: On: 04-Sep-2018 Intent Fast DO, Sangeetha A Fast DO, Sangeetha A Overnight Pulse OX ([id number])By: Fast On: 04-Sep-2018 Intent DO, Sangeetha A Fast DO, Sangeetha A Spirometry ([id number])By: Fast DO, On: 04-Sep-2018 Intent Sangeetha A Fast DO, Sangeetha A ELECTROCARDIOGRAM, COMPLETE (ECG) On: 04-Sep-2018 Intent ([id number])By: Fast DO, Sangeetha A Fast DO, Comments: ekg- 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 and possible recent anterior wall mi- nonspecific st depression Sangeetha A Flu Vaccine (Quadrivalent) 87655An: On: 21-Jul-2018 Intent Fast DO, Sangeetha A Fast DO, Sangeetha A SCREENING DIGITAL TOMOSYNTHESIS OF On: 21-Jul-2018 Intent BREAST ([id number])By: Fast DO, Sangeetha A Fast DO, Sangeetha A B 12 Injection, 1000 mcg (J3420)By: On: 31-May-2018 Intent Fast DO, Sangeetha A Fast DO, Sangeetha A Comments: Lot#[id number] EXP:[id number] given:left deltoid Given By: clarita craig ABN signed CT - Abdomen (IV Contrast Needed)By: On: 31-May-2018 Intent Fast DO, Sangeetha A Fast DO, Sangeetha A Doppler Ultrasound OtherBy: Fast DO, On: 19-May-2018 Intent Sangeetha A Fast DO, Sangeetha A Comments: left arm ULTRASOUND OF LIVER ([id number])By: On: 24-Feb-2018 Intent Blanca KING, Jennifer Gregory PFT - CompleteBy: Fast DO, Sangeetha A On: 21-Oct-2017 Intent Fast DO, Sangeetha A Comments: at [facility] SCREENING DIGITAL TOMOSYNTHESIS OF On: 21-Oct-2017 Intent BREAST ([id number])By: Fast DO, Sangeetha A Comments: end of oct Fast DO, Sangeetha A EsophagramBy: Fast DO, Sangeetha A Fast On: 21-Oct-2017 Intent DO, Sangeetha A Comments: with 12 mm tablet ELECTROCARDIOGRAM, COMPLETE (ECG) On: 21-Oct-2017 Intent ([id number])By: Fast DO, Sangeetha A Fast DO, Sangeetha A Flu Vaccine (Quadrivalent) 23744Ej: On: 07-Jun-2017 Intent Fast DO, Sangeetha A [...] DO, Sangeetha A DEXA SCAN AXIAL SKELETON ([id number])By: On: 16-Aug-2016 Intent Fast DO, Sangeetha A Fast DO, Sangeetha A MAMMOGRAM, SCREENING, BOTH BREAST On: 16-Aug-2016 Intent ([id number])By: Fast DO, Sangeetha A Fast DO, Sangeetha A ELECTROCARDIOGRAM, COMPLETE (ECG) On: 16-Aug-2016 Intent ([id number])By: Fast DO, Sangeetha A Fast DO, Sangeetha A Flu Vaccine (Quadrivalent) 23649Xg: On: 16-Aug-2016 Intent Fast DO, Sangeetha A Fast DO, Sangeetha A Comments: FLUlot: [id number]/09site:Lt deltoidroute:IMdose:.5mlDEMICK, [place] ADMINISTRATION OF INFLUENZA VIRUS On: 16-Aug-2016 Intent VACCINE ([id number])By: Fast DO, Sangeetha A Fast DO, Sangeetha A Ultrasound - ThyroidBy: Fast DO, On: 10-Nov-2015 Intent Sangeetha A Fast DO, Sangeetha A Ultrasound - LiverBy: Fast DO, Sangeetha On: 10-Nov-2015 Intent A Fast DO, Sangeetha A Flu Vaccine (Quadrivalent) 70293Wg: On: 08-Aug-2015 Intent Fast DO, Sangeetha A Fast DO, Sangeetha A Comments: Lot #[id number]-L dltd, IMDose prefilled syringegiven by:MLong, LPNVIS and ABN signed MAMMOGRAM, SCREENING, BOTH BREAST On: 08-Aug-2015 Intent ([id number])By: Fast DO, Sangeetha A Fast DO, Sangeetha A Ultrasound - ThyroidBy: Fast DO, On: 08-Aug-2015 Intent Sangeetha A Fast DO, Sangeetha A Ultrasound - LiverBy: Fast DO, Sangeetha On: 08-Aug-2015 Intent A Fast DO, Sangeetha A ADMINISTRATION OF PNEUMOCOCCAL On: 01-Nov-2014 Intent VACCINE (G0009)By: Fast DO, Sangeetha A Fast DO, Sangeetha A PNEUM VAC ADLT/IMUMNOSPR, SBC/INTRM On: 01-Nov-2014 Intent ([id number])By: Fast DO, Sangeetha A Fast DO, Comments: Lot:[id number]:02/29/16Dose:0.5mgRoute:imSite:mk Donis By:BATSHEVA Antonya A Ultrasound - LiverBy: Fast DO, Sangeetha On: 05-Jul-2014 Intent A Fast DO, Sangeetha A BILATERAL MAMMOGRAMS ([id number])By: Fast On: 05-Jul-2014 Intent DO, Sangeetha A Fast DO, Sangeetha A Ultrasound - ThyroidBy: Fast DO, On: 05-Jul-2014 Intent Sangeetha A Fast DO, Sangeetha A ADMINISTRATION OF INFLUENZA VIRUS On: 05-Jul-2014 Intent VACCINE (G0008)By: Fast DO, Sangeetha A Comments: Influenzalot:[id number]:03/25/2015dose:0.5mLRoute: IMlocation:Lois donis by:marika Fast DO, Sangeetha A FLU VAC, SPLIT, >3 YEARS, INTRAMUSC On: 05-Jul-2014 Intent ([id number])By: Tavon DAVIS Sangeetha A Fast DO, Sangeetha A INFUSION, NORMAL SALINE SOLUTION , On: 15-Apr-2014 Intent 250 CC ([id number])By: Angelina Winn CNP Rocephon Injection, 1 Gm (J0696)By: On: 15-Apr-2014 Intent Angelina Winn CNP Comments: Rocephin 1gmLot #[id number]. [id number] in R hand x 1 stick with [...] (IV Contrast On: 08-Jan-2014 Intent Needed)By: Tavon DO, Sangeetha A Fast DO, Sangeetha A ADMINISTRATION OF INFLUENZA VIRUS On: 27-Jul-2013 Intent VACCINE (G0008)By: Fast DO, Sangeetha A Fast DO, Sangeetha A FLU VAC, SPLIT, >3 YEARS, INTRAMUSC On: 27-Jul-2013 Intent ([id number])By: Fast DO, Sangeetha A Fast DO, Sangeetha A Eprescribed prescriptions ([id number])By: On: 04-Jun-2013 Intent Delisa Melendez LPN SPECIMEN HANDLING/TRANSPORT On: 04-Jun-2013 Intent ([id number])By: Delisa Melendez LPN INFUSION, NORMAL SALINE SOLUTION , On: 15-Feb-2013 Intent 1000 CC (Special Coverage Comments: 500 cc Instructions Apply. See MCM: 2049) ([id number])By: Jennifer Rios MD HYDRATION IV INFUSION, INIT On: 15-Feb-2013 Intent ([id number])By: Jennifer Rios MD Ultrasound - ThyroidBy: Fast DO, On: 19-Jan-2013 Intent Sangeetha A Fast DO, Sangeetha A MAMMOGRAM, SCREENING, BOTH BREASTS On: 19-Jan-2013 Intent ([id number])By: Fast DO, Sangeetha A Fast DO, Comments: due in january Sangeetha A Eprescribed prescriptions ([id number])By: On: 19-Jan-2013 Intent Isabella Grigsby Pulse Oximetry ([id number])By: Seb, On: 29-Sep-2012 Intent Isabella Comments: 98% [...] MAMMOGRAM, SCREENING, BOTH BREASTS On: 24-Jan-2012 Intent ([id number])By: Fast DO, Sangeetha A Fast DO, Sangeetha A TDAP VACCINE >7 IM (52728)By: Tavon On: 04-Oct-2011 Intent DO, Sangeetha A Fast DO, Sangeetha A Comments: Lot:[id number]:08/12/13Amt:prefilledRoute:IMSite:right deltGiven By: NATALEE Spence Aerosol Treatment (46202)By: Blanca On: 26-Aug-2011 Intent Jennifer KING Pulse Oximetry (88902)By: Blanca On: 26-Aug-2011 Intent Jennifer KING SPECIMEN HANDLING/TRANSPORT On: 23-Jul-2011 Intent (53723)By: Delisa Melendez LPN FLU VAC, SPLIT, >3 YEARS, INTRAMUSC On: 05-Jul-2011 Intent ([id number])By: Isabella Grigsby Comments: Lot #[id number]/20/12Site-left deltoidgiven by: Lisa Bello LPN Ultrasound - ThyroidBy: Fast DO, On: 05-Jul-2011 Intent Sangeetha A Fast DO, Sangeetha A MAMMOGRAM, SCREENING, BOTH BREASTS On: 05-Jul-2011 Intent (77591)By: Fast DO, Sangeetha A Fast DO, Sangeetha A ADMINISTRATION OF INFLUENZA VIRUS On: 05-Jul-2011 Intent VACCINE (G0008)By: Isabella Grigsby Eprescribed prescriptions ([id number])By: On: 04-Jun-[address] Intent [address] DO CT - Brain/HeadBy: Fast DO, Sangeetha A On: 07-Oct-2010 Intent Fast DO, Sangeetha A Comments: with and without contrast MAMMOGRAM, SCREENING, BOTH BREASTS On: 26-Jun-2010 Intent ([id number])By: Fast DO, Sangeetha A Fast DO, Sangeetha A ADMINISTRATION OF INFLUENZA VIRUS On: 26-Jun-2010 Intent VACCINE (G0008)By: Fast DO, Sangeetha A Fast DO, Sangeetha A FLU VAC, SPLIT, >3 YEARS, INTRAMUSC On: 26-Jun-2010 Intent (81767)By: Fast DO, Sangeetha A Fast DO, Comments: Lot:[id number]:12/2010Dose:0.5mlRoute:IMSite:Left DeltoidGiven by: HEIDI Albertoa Emily Ultrasound - ThyroidBy: Fast DO, On: 07-Jan-2010 Intent Sangeetha A Fast DO, Sangeetha A CT - Spine/CervicalBy: Fast DO, On: 15-Dec-2009 Intent Sangeetha A Fast DO, Sangeetha A Comments: 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 -- need to rule out Pulse Oximetry (23950)By: Fast DO, On: 09-Jul-2009 Intent Sangeetha A Fast DO, Sangeetha A Spirometry (47502)By: Fast DO, On: 10-Jul-2009 Intent Sangeetha A Fast DO, Sangeetha A Comments: good effort and curve- mild restriciton Radiology - Chest- PA and LatBy: On: 09-Jul-2009 Intent Fast DO, Sangeetha A Fast DO, Sangeetha A Pulse Oximetry ([id number])By: Fast DO, On: 10-Jul-2009 Intent Sangeetha A Fast DO, Sangeetha A Comments: 98 FLU VAC, SPLIT, >3 YEARS, INTRAMUSC On: 09-Jul-2009 Intent (83037)By: Isabella Grigsby Comments: Lot #[id number]-right deltoidDose0.5mlgiven by Juventino Nye LPN IMMUNIZ ADMNIN, 1 VAC, SNGL/COMBO On: 09-Jul-2009 Intent (19772)By: Isabella Grigsby EKG (28450)By: Fast DO, Sangeetha A On: 10-Oct-2008 Intent [...] ADMNIN, 1 VAC, SNGL/COMBO On: 10-Jul-2008 Intent ([id number])By: Fast DO, Sangeetha A Fast DO, Sangeetha A FLU VAC, SPLIT, >3 YEARS, INTRAMUSC On: 10-Jul-2008 Intent ([id number])By: Fast DO, Sangeetha A Fast DO, Comments: injection given in left deltoid, pt tolerated welllot # [id number] Sangeetha A Holter Monitor 24 hrsBy: Fast DO, On: 10-Jul-2008 Intent Sangeetha A Fast DO, Sangeetha A EKG (31365)By: Marlene Reddy On: 10-Jul-2008 Intent Comments: ekg [...] SOLUTION , 1000 CC Ordered: 15-Feb-2013 Pending Blanca KING, Jennifer Gregory INFUSION, NORMAL SALINE SOLUTION , 250 CC [...] using tylenol and will go back to [place] if need be for shot-sugar fine-n foot [...] off metformin and lisinopril andthen went to [place] for couple weeks then had multiple falls sent back to hospital and transferred to [facility] there for few weeks then to [facility] had lots of pt- and doing [...] Patient has been compliant with instructions. Current nh End: 01-Mar-2017 9:26 dication use: no side [...] anxiety and depression. Note for Physical exam: [facility] Wellness Physical- she is down 107 [...] from Need for immunizati on against influenza), [facility]LL[facility], Encounter for screening mammogram for [...] Reason for hospitalization abdominal pain (Went to [facility] on 02/28/15). Hospitalization details include: [...] previously evaluated by a primary physician (at [facility]- Dr Reyes ). Presentation included [...] is helping her mood- has followup in [place] [facility] - her weight down 20 [...] heart failure doctor next week [facility] - -- mood ebs and [...] the problems -goes back to [facility] on tuesday and psych in 2 [...] is seeing zoraida for back issues- sees tue- she got rid of bronchial infection [...] or less). 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
--- OUTSIDE RECORDS SUMMARY | 2018-10-21 22:45 | XMS RPT_ITS | Continuity of Care Document ---
:1965 Author Organization [facility] Address [facility]7 [facility] [address] [address] Phone Care Team Providers Name Role Phone [...] Quantity: 60 {Tablet} Refills: 3 Ordered:19-May-2018 Long TOY PARTS FORMER SUPERVISOR, Amelia L Start : 21-Oct-2017 End : [...] : 25-Jan-2018 End : 19-May-2018 Inactive ERGOCALCIFEROL, 49062MRWY (Oral Capsule) 1 (one) Capsule Capsule twice [...] : 23-Jul-2011 End : 02-Aug-2011 Inactive MAXITROL, 3.5-11263-9.1 (Ophthalmic Ointment) apply to eye lids as [...] hs (50 MG) Inactive Comments:Dr. Hankins NYSTATIN, 821439NCVG/ML (Mouth/Throat Suspension) 5cc Suspension 5 times daily [...] Quantity: 30 {Tablet} Refills: 2 Ordered:01-Mar-2017 Isabella Grigsyb Start : 09-Feb-2016 End : 01-Mar-2017 Discontinued [...] Quantity: 30 {Tablet} Refills: 0 Ordered:19-May-2018 Long TOY PARTS FORMER SUPERVISOR, Amelia L Start : 12-May-2012 End : 19-May-2018 Discontinued Comments:This order discontinued per [facility]. ZOFRAN ODT, 4MG (Oral Tablet Dispersible) qd prn nausea (4 MG) End : 08-Aug-2015 Discontinued Comments:[facility] Allergies and Adverse Reactions Name Dates [...] Result: Comments: See Note; NOTES: [facility] Imaging Services [address] [place] [address] CTA Chest W/WO Contrast MR#: [id number] Acct: [id number] Name: IFEOMA ASHRAF Rep #: [id number] : 1965 F 53 From: Ziggy Santos MD PCP: Sangeetha Irvin DO Status: REG CLI Study: CTA Chest W/WO Contrast Date of Exam: 09/04/18 Exam# [id number] Ordering Dr: Sangeetha Irvin DO STUDY: CTA [...] Service support , CC: Sangeetha Irvin DO Child Advocate: Signed 14-Jul-2018 Chest PA and Lateral Result: Comments: See Note; NOTES: [facility] Imaging Services [address] [facility] [place] [address] Chest PA and Lateral MR#: [id number] Acct: [id number] Name: MARIOWAQASIFEOMA Ashok Rep #: [id number] : 1965 F 53 From: Dimitris Valderrama DO PCP: Sangeetha Irvin DO Status: REG CLI Study: Chest PA and Lateral Date of Exam: 07/14/18 Exam# [id number] Ordering Dr: Oscar Todd STUDY: X-RAY CHEST [...] Dimitris Valderrama DO at 8:47 EDT Tel [phone], Service support , CC: NUNU Todd; Sangeetha Irvin DO Child Advocate: Signed 10-Jun-2018 Pacemaker Check Result: Comments: See Note; NOTES: [facility] [address] [place] [address] Pacemaker Check Date of Service: 06/09/18908 MR#: [id number] Acct: [id number] Name: IFEOMA ASHRAF Rep #: [id number] : 1965 From: Danica Pickering Age/Sex: 53/F [place] [facility] [place]: Signed Billing Codes ICD Device Billing: ICD Dev Prog Eval, Single 06/09/18 0913 <Elec tronically signed by Danica Pickering > Date Danica Pickering 06/10/18 1406<Electronically signed by Boone Ch MD> Cosigner Signat ure: Date (if applicable) Boone Ch MD CC: 08-Jun-2018 Cardiology Visit Report Result: Comments: See Note; NOTES: [facility] [address] [place] [address] OFFICE VISIT Date of Service: 05/31/18 MR#: [id number] Acct: [id number] Name: IFEOMA ASHRAF Rep #: [id number] : 1965 Provider: NUNU Todd Age/Sex: 53/F [place] [facility] Status: Signed with Addenda ADDENDUM by NUNU Todd on 06/01/18 at 0746 Addendum entered and electronic ally signed by LUPE Black 06/01/18 07:46: Patient's outside records from [facility] admission from 04/07/2018 to 04/27/2018 [...] ultimately discharged home with requested follow-up with [facility] neurology or local neurolo gist in [...] defibrillator (ICD) Z95.810 Generator change 11/13 @ [facility] LUPE Chapman Pacemaker check in February [...] prior to saving. 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 She presented [facility] on March 08, 2018 after being found unresponsive in her bathroom. During this hospitalization she was found to have an acute left axillary and left brachial vein DVT and was started on Eliquis. She presented to [facility] emergency department in March 2018 for altered mental status. Her CT scan prior to ER visit showed possible hygroma versus subacute resolving subdural hematoma. She was transferred to [facility] for further evaluation. These records [...] 05/31/18 Pulse Rate 100 Intake Visit Reasons: [facility] to [place] Allergies amitriptyline Adverse Reaction (Severe, Verified 05/31/18 [...] rter-defibrillator (ICD) Z95.810 Generator change 11/13 @ [facility] LUPE Chapman Pacemaker check in February [...] prior to saving. 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 [place] [address] OFFICE VISIT Date of Service: 06/05/18 1314 MR#: [id number] Acct: [id number] Name: TYLOR ASHRAF Dm Pulido Rep #: [id number] : 1965 From: Simeon Gresham MD Age/Sex: 53/F Location: [facility] Status: Signed Subjective - Date of Service Date of Service:: 06/05/18 - Chief Complaint Follow up DLBCL - His tory of Present Illness 53-year-old woman was diagnosed with non-Hodgkin's lymphoma, diffuse large B cell, stage IV of the uterine cervix with BROODMARE BARN GROOM/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 She had [...] stem cell transplant in February 2007 at [facility] with complete remission. She is on observation, [facility] in for follow up. - Past Medical/Social [...] Chronic Code Visit Office Visits / Consults: 78156 OV L3 Est 1325 <Electronically signed by Simeon Gresham MD> Date Simeon Gresham MD Cosigner Signature: Date (if applicable) CC: 26-May-2018 Venous Duplex Upper Extremity Result: Comments: See Note; NOTES: [facility] Cardiovascular Services [address] [place] [address] Venous Duplex US, Unilateral 05/25/18 0903 MR#: [id number] Acct: [id number] Name: IFEOMA SILVA Rep #: [id number] : 1965 53 From: Juanjo Russo MD [...] Dictated: 05/25/18 0903 Date Transcribed: 05/26/18 163 Child Advocate: Signed 06-Apr-2018 Chest 1 View (Portable) Result: Comments: See Note; NOTES: [facility] Imaging Services [address] [place] [address] Chest 1 View (Portable) MR#: [id number] Acct: [id number] Name: IFEOMA ASHRAF Rep #: [id number] : 1965 F 53 From: Levy Lucas DO PCP: Sangeetha Irvin DO Status: PRE ER Study: Chest 1 View (Portable) Date of Exam: 04/06/18 Exam# [id number] Ordering Dr: Dejuan Bacon MD STUDY: X-RAY [...] , CC: Sangeetha Irvin DO; Dejuan Bacon Child Advocate: Signed 05-Apr-2018 Brain/Head without Contrast Result: Comments: See Note; NOTES: [facility] Imaging Services [address] [place] [address] Brain/Head without Contrast MR#: [id number] Acct: [id number] Name: IFEOMA ASHRAF Rep # : [id number] : 1965 F 53 From: Levy Lucas DO PCP: Sangeetha Irvin DO Status: REG CLI Study: Brain/Head without Contrast Date of Exam: 04/05/18 Exam# [id number] Ordering Dr: Oscar Bartlett MD STUDY : [...] 14:06 EDT Tel , Service support 1- [phone], N.B. : The above information has been verbally conveyed by Levy Lucas DO to connected , Covering Physician, on 04/05/2018 14:06:03 (ET). CC: Sangeetha Irvin DO; Oscar Bartlett MD Child Advocate: Signed 05-Apr-2018 Brain/Head without Contrast Result: Comments: See Note; NOTES: [facility] Imaging Services [address] [place] [address] Brain/Head without Contrast MR#: [id number] Acct: [id number] Name: IFEOMA ASHRAF Rep # : [id number] : 1965 F 53 From: Levy Lucas DO PCP: Sangeetha Irvin DO Status: REG CLI Study: Brain/Head without Contrast Date of Exam: 04/05/18 Exam# [id number] Ordering Dr: Oscar Bartlett MD STUDY : [...] erbally conveyed by Levy Lucas DO to [facility] , [facility] Physician, on 04/05/2018 14:06:03 (ET). Electronically Signed: Levy Lucas DO at 14:06 EDT Tel , Service support 1- [phone], N.B. : The above information has been verbally conveyed by Levy Lucas DO to connected , Covering Physician, on 04/05/2018 14:06:03 (ET). CC: Sangeetha Irvin DO; Oscar Bartlett MD Child Advocate: Signed 31-Mar-2018 Cardiology Visit Report Result: Comments: See Note; NOTES: [facility] [address] [place] [address] OFFICE VISIT Date of Service: 03/31/18 MR#: [id number] Acct: [id number] Name: Ifeoma Ashraf Rep #: [id number] : 1965 Provider: [place] Ch MD Age/Sex: 53/F [place] [facility] Status: Signed HPI HPI Chief Complaint: [...] to the emergency department at [facility] on 03/08/2018 aft er being found unresponsive [...] care unit. She was eventually transferred to [facility]. Her major problem at this time is [...] Lt brachial Intake Visit Reasons: DC to [facility] 6 Educational Administration Teacher Required: No Accompanied by: mother Is patient [...] (I CD) Z95.810 Generator change 11/13 @ [facility] Dr. Ahmadi Plan She does have [...] months. 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 Cardiovascular Services [address] [place] [address] 11/22/17 0803 MR#: [id number] Acct: [id number] Name: IFEOMA ASHRAF Rep #: [id number] [...] Dictated: 11/22/17 0803 Date Transcribed: 11/22/17 1518 Child Advocate: Signed 18-Nov-2017 Office Visit Report Result: Comments: See Note; NOTES: [place] [address] [place] [address] OFFICE VISIT Date of Service: 11/17/17 MR#: [id number] Acct: [id number] Patient: IFEOMA ASHRAF Rep #: [id number] : 1965 Provider: Danica Pickering Age/Sex: 52/F [...] n office Interview Reason: scheduled follow up Model Home [employer] Greeter: [employer] Name: Lan Mckeon VR Model: SB2520-09F Serial #: [id number] Implant Date: 11/10/17 Year(s): 0 Implant Physician: [...] and No drainage Bibiana ds Lead #1 Model Home Sales Greeter Lead 1: [employer] Model Lead 1: 7121Q/58 Serial# Lead 1: [id number] Date Implanted Lead 1: 10/10/09 Position Lead [...] Result: Comments: See Note; NOTES: [facility] Medical Records Department [address] [place] [address] Operative Report 11/10/17 1148 MR#: [id number] Acct: [id number] Name: SALOME ASHRAF Rep #: [id number] : 1965 52 From: Lior Ahmadi MD PCP: Sangeetha Irvin DO Status: REG [facility] [place] Location: [facility] Operative Report Date of Procedure: 11/10/17 Preoperative diagnosis is device at end of life for normal battery depletion. Postoperative diagnosis same as above. After informed consent and IV antibiotics the patient was brought to the [facility] and the ski n over [...] chart documents provided by the device company community engagement representative procedure summary. 11/10/17 1150 <Electronically signed by Lior Ahmadi MD > Date Lior Ahmadi MD CC: Sangeetha Irvin DO; Lior Ahmadi MD Signed 03-Nov-2017 Office Visit Report Result: Comments: See Note; NOTES: [facility] Services [address] 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 Name: Current VR Model: 1211-36Q ICD Serial #: [id number] Implant Date: 10/10/09 Year(s): 8 Implant Physician: [...] Model Lead 1: 7121Q/58 Serial# Lead 1: [id number] Date Implanted Lead 1: 10/10/09 Position Lead [...] automatic cardioverter/defibrillator (AIC D) Z95.810 10/06/2009 @ [facility] 2. Cardiomyopathy in other diseases classified elsewhere I43 11/03/17 1251 <Electronically signed by Danica Pickering > Date Danica Pickering 11/03/17 1648<Electronically signed by Boone Ch MD> Junior Signature: Date (if applicable) Boone Ch MD CC: 03-Nov-2017 Cardiology Visit Report Result: Comments: See Note; NOTES: [facility] [place] [address] OFFICE VISIT Date of Service: 11/03/17 MR#: [id number] Acct: [id number] Name: IFEOMA ASHRAF Rep #: [id number] : 1965 Provider: [place] Ch MD Age/Sex: 52/F Location[place] [facility] Status: Signed HPI HPI Details: IFEOMA ASHRAF, [...] 25 to 29 (25% per echo 03/11/2015) [facility] Medical History Type 2 diabetes mellitus without [...] of automatic cardioverter/defibrillator (AICD) Z95.810 10/06/2009 @ [facility] Plan She is status post [...] was also being followed up at the [facility]. She is also on spironolactone and [...] Result: Comments: See Note; NOTES: [facility] Imaging Services [address] [place] [address] Chest PA and Lateral MR#: [id number] Acct: [id number] Name: IFEOMA ASHRAF Rep #: [id number] : 1965 F 52 From: Dimitris Valderrama DO PCP: Sangeetha Irvin DO Status: PRE [facility] Study: Chest PA and Lateral Date of Exam: 11/03/17 Exam# [id number] Ordering Dr: Boone Ch MD STUDY: X-RAY [...] Dimitris Valderrama DO at 18:21 EST Tel [phone], Se rvice support , CC: Boone Ch MD; Sangeetha Irvin DO Child Advocate: Signed 14-Oct-2017 Office Visit Report Result: Comments: See Note; NOTES: [address] [place] [address] OFFICE VISIT Date of Service: 10/12/17 MR#: [id number] Acct: [id number] Patient: IFEOMA ASHRAF Rep #: [id number] : 1965 Provider: Danica Pcikering Age/Sex: 52/F [place] [facility] Status: Signed Comments Summary Comments: Single Chamber ICD Evaluation: Interrogation shows No VT/VF episodes since . No Alerts noted. Left pectoral pocket/incision w/o s/s of infection or erosion. Pt offers no cardiac complaints. Presenting rhythm shows Sinus Tachycardia @ 105 bpm. Left pectoral pocket/incision w/o s/s of infection or erosion. FINAL ASSEMBLER=0%. Battery longevity approx 2.9 mos. At device check in June device showed longevity of 14 mos. D/T longevity decreasing quickly pt scheduled for ICD generator el gilliam with Dr. Ahmadi on 11/10/17 @ [facility]. Lead impedances, sensing and pace/sense threshold remain stable. No parameter changes made. Counters cleared. Pt scheduled for o.v and teaching on 11/03/17 and ICD g enerator change on 11/10/17. Device Device Date Interviewed: 10/12/17 Follow- up Location: in office Interview Reason: routine follow up [employer] Greeter: 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 Model Lead 1: 7121Q/58 Serial# Lead 1: [id number] Date Implanted Lead 1: 10/10/09 Position Lead [...] Result: Comments: See Note; NOTES: [facility] Imaging Services [address] [place] [address] Abdomen WITH IV Contrast MR#: [id number] Acct: [id number] Name: IFEOMA ASHRAF Rep #: [id number] : 1965 F 52 From: Carl Vincent MD PCP: Sangeetha Irvin DO Status: REG CLI Study: Abdomen WITH IV Contrast Date of Exam: 06/15/17 Exam# [id number] Ordering Dr: Analisa Conway MD STUDY: CT [...] CC: Analisa Conway MD; Sangeetha Irvin DO Child Advocate: Signed 15-Jun-2017 Spine Cervical without Contras Result: Comments: See Note; NOTES: [facility] Imaging Services [address] [place] [address] Spine Cervical without Contras MR#: [id number] Acct: [id number] Name: IFEOMA ASHRAF Radha p #: [id number] : 1965 F 52 From: Zev Mandujano MD PCP: Sangeetha Irvin DO Status: REG CLI Study: Spine Cervical without Contras Date of Exam: 06/15/17 Exam# [id number] Ordering Dr: Analisa Conway MD STUDY: CT [...] CC: Analisa Conway MD; Sangeetha Irvin DO Child Advocate: Signed 10-Feb-2017 Spine Lumbar without Contrast Result: Comments: See Note; NOTES: [facility] Imaging Services [address] [place] [address] Verdana 4d Spine Lumbar without Contrast MR#: [id number] Acct: [id number] Name: MARISEL ASHRAF Rep #: [id number] : 1965 F 51 From: Brian Gill MD PCP: Sangeetha Irvin DO Status: REG CLI Study: Spine Lumbar without Contrast Date of Exam: 02/10/17 Exam# [id number] Ordering Dr: Analisa Carr i, MD STUDY: [...] CC: Analisa Conway MD; Sangeetha Irvin DO Child Advocate: Signed 20-Jan-2017 Liver Result: Comments: See Note; NOTES: [facility] Imaging Services [address] [facility] [place] [address] Verdana 4d Liver MR#: [id number] Acct: [id number] Name: IFEOMA ASHRAF Rep #: [id number] : 1965 F 51 From: Vincent Bui DO PCP: Sangeetha Irvin DO Status: REG CLI Study: Liver Date of Exam: 01/20/17 Exam# [id number] Ordering Dr: Sangeetha Irvin DO STUDY: ABDOMINAL [...] Vincent Bui DO at 23:43 EDT Tel [phone], Service support , CC: Sangeetha Irvin DO Child Advocate: Signed 20-Jan-2017 Thyroid Result: Comments: See Note; NOTES: [facility] Imaging Services [address] [place] [address] Verdana 4d Thyroid MR#: [id number] Acct: [id number] Name: IFEOMA ASHRAF Rep #: [id number] : 1965 F 51 From: Jin Rolon PCP: Sangeetha Irvin DO Status: REG CLI Study: Thyroid Date of Exam: 01/20/17 Exam# [id number] Ordering Dr: Sangeetha Irvin DO STUDY: THYROID [...] Service support , CC: Sangeetha Irvin DO Child Advocate: Signed 17-Nov-2016 Dexa Bone Density Study (HP) Result: Comments: See Note; NOTES: [facility] Imaging Services [address] [place] [address] Verdana 4d Dexa Bone Density Study (HP) MR#: [id number] Acct: [id number] Name: SEAN HARPAL Pulido Rep #: [id number] : 1965 F 51 From: Prashant Delgadillo MD PCP: Sangeetha Irvin DO Status: REG CLI Study: Dexa Bone Density Study (HP) Date of Exam: 11/17/16 Exam# [id number] Ordering Dr: Sangeetha Irvin DO STUDY: DUAL [...] Prashant Delgadillo MD at 10:52 EST Tel [phone], Service support [phone], CC: Sangeetha Irvin DO Child Advocate: Signed 17-Nov-2016 SCREENING MAMM (CAD), BILAT Result: Comments: See Note; NOTES: [facility] Imaging Services [address] [place] [address] Verdana 4d SCREENING MAMM (CAD), BILAT MR#: [id number] Acct: [id number] Name: SALOME ASHRAF Rep #: [id number] : 1965 F 51 From: Prashant Delgadillo MD PCP: Sangeetha Irvin DO Status: REG CLI Study: SCREENING MAMM (CAD), B[place]ISSETTE Date of Exam: 11/17/16 Exam# [id number] Ordering Dr: Gary Irvin DO MAMMOGRAPHY - [...] biopsy of a clinically suspiciou s abnormality. EX0040 Electronically Signed: Prashant Delgadillo MD at 12:55 EST Tel [phone], Service support [phone], CC: Sangeetha Irvin DO Child Advocate: Signed 17-Nov-2016 SCREENING MAMM (CAD), BILAT Result: Comments: See Note; NOTES: [facility] Imaging Services [address] [place] [address] Verdana 4d SCREENING MAMM (CAD), BILAT MR#: [id number] Acct: [id number] Name: SALOME ASHRAF Rep #: [id number] : 1965 F 51 From: Prashant Delgadillo MD PCP: Sangeetha Irvin DO Status: REG CLI Study: SCREENING MAMM (CAD), BILAT Date of Exam: 11/17/16 Exam# [id number] Ordering Dr: Gary Irvin DO ADDENDUM by [...] delay biopsy of a clinically suspicious abnormality. [id number] Electronically Signed: Prashant Delgadillo MD at 13:07 EST Tel [phone], Service support [phone], 11/17/16 1315 Date cc: Sangeetha Irvin DO [...] delay biopsy of a clinically suspicious abnormality. [id number] Electronically Signed: Prashant Delgadillo MD at 12:55 EST Tel [phone], Ser vice support [phone], CC: Sangeetha Irvin DO Child Advocate: Signed 19-Dec-2015 Liver Result: Comments: See Note; NOTES: [facility] Imaging Services [address] [place] [address] Verdana 4d Liver MR#: [id number] Acct: [id number] Name: IFEOMA ASHRAF Rep #: [id number] : 1965 F 50 From: Ziggy Santos MD PCP: Sangeetha Irvin DO Status: REG CLI Study: Liver Date of Exam: 12/19/15 Exam# [id number] Ordering Dr: Sangeetha Irvin DO STUDY: ABDOMINAL [...] Service support , CC: Sangeetha Irvin DO Child Advocate: Signed 19-Dec-2015 Thyroid Result: Comments: See Note; NOTES: [facility] Imaging Services [address] [place] [address] Verdana 4d Thyroid MR#: [id number] Acct: [id number] Name: IFEOMA ASHRAF Lois ep #: [id number] : 1965 F 50 From: Ziggy Santos MD PCP: Sangeetha Irvin DO Status: REG CLI Study: Thyroid Date of Exam: 12/19/15 Exam# [id number] Ordering Dr: Sangeetha Irvin DO STUDY: THYROID [...] Service support , CC: Sangeetha Irvin DO Child Advocate: Signed 14-Aug-2015 Bilat Scrn Digital AND CAD Result: Comments: See Note; NOTES: [facility] Imaging Services [address] [place] [address] Verdana 4d Bilat Scrn Digital AND CAD MR#: [id number] Acct: [id number] Name: IFEOMA ASHRAF Rep #: [id number] : 1965 F 50 From: Prashant Delgadillo MD PCP: Sangeetha Irvin DO Status: REG CLI Study: Bilat Scrn Digital AND CAD Date of Exam: 08/14/15 Exam# [id number] Order ing Dr: Sangeetha Irvin DO MAMMOGRAPHY [...] Prashant Delgadillo MD at 10:49 EST Tel [phone], Service support [phone], CC: Sangeetha Irvin DO Child Advocate: Signed 10-Mar-2015 Emergency Department Summary Result: Comments: See Note; NOTES: [facility] Medical Records Department [address] [place] [address] Emergency Department Summary MR#: [id number] Acct: [id number] Name: MALU CRAFTIFEOMA Rep #: [id number] : 1965 49 From: Mayito Roldan DO PCP: Sangeetha Irvin DO Status: [facility] ER DATE OF SERVICE: 02/28/2015 Addendum This [...] way. Mayito Roldan DO T: NTS JOB: [id number] 03/10/15 2329 <Electronically signed by Mayito Roldan DO> Date Mayito Roldan DO CC: Sangeetha Irvin DO Date Dictated: 02/28/15824 Date Transcribed: 02/28/15824 Child Advocate: Signed 02-Mar-2015 Emergency Department Summary Result: Comments: See Note; NOTES: [facility] Medical Records Department [address] [place] [address] Emergency Department Summary MR#: [id number] Acct: [id number] Name: IFEOMA RASMUSSEN Rep #: [id number] : 1965 49 From: Alejandro Lopez DO PCP: Sangeetha Irvin DO Status: [facility] ER DATE OF SERVICE: 02/28/2015 CHIEF COMPLAINT: [...] patient has plans to go to [facility] on General. I will give her local surgeon's name if she wants to speak with them or she can certainly also speak with Dr. Irvin. CLINICAL IMPRESSION: Biliary colic. Alejandro Lopez DO T: ROCK JOB: [id number] 03/02/15 0743 <Electronically signed by Alejandro Lopez DO> Date Alejandro Lopez DO CC: Sangeetha Irvin DO Date Dictated: 718 Date Transcribed: 02/28/15718 Child Advocate: Signed 28-Feb-2015 Discharge Instruction Result: Comments: See Note; NOTES: [facility] Medical Records Department [address] [place] [address] Discharge Instruction 02/28/15 0639 MR#: [id number] Acct: [id number] Name: IFEOMA ASHRAF Rep #: [id number] : 1965 49 From: Alejandro Lopez DO [...] problems, contact your doctor. Call [facility] ([phone]) or report to the closest ergency Room. Call 911 if necessary. 02/28/15 0640 <Electronically signed by Alejandro Lopez DO> Date Alejandro Lopez DO Cosign er Signature (If Indicated): Date CC: Sangeetha Irvin DO 28-Feb-2015 Gallbladder Result: Comments: See Note; NOTES: [facility] Imaging Services [address] [place] [address] Ultrasound Report MR#: [id number] Acct: [id number] Name: IFEOMA ASHRAF Rep #: [id number] : 1965 F 49 From: Prashant Delgadillo MD PCP: Sangeetha Irvin DO Status: REG ER Study: Gallbladder Date of Exam: 02/28/15 Exam# [id number] Ordering Dr: Alejandro Lopez DO STUDY: ABDOM [...] Prashant Delgadillo MD at 8:15 EDT Tel [phone], Service support [phone], CC: Alejandro Lopez DO; Sangeetha Irvin DO Child Advocate: Signed 11-Feb-2015 Spine Cervical without Contras Result: Comments: See Note; NOTES: [facility] Imaging Services [address] [place] [address] CAT Scan Report MR#: [id number] Acct: [id number] Name: IFEOMA ASHRAF Rep #: [id number] : 1965 F 49 From: Prashant Delgadillo MD PCP: Sangeetha Irvin DO Status: REG CLI Study: Spine Cervical without Contras Date of Exam: 02/11/15 Exam# [id number] Ordering Dr: Analisa Conway MD STUDY: CT [...] Prashant Delgadillo MD at 9:49 EDT Tel [phone], Service support [phone], CC: Analisa Conway MD; Sangeetha Irvin DO Child Advocate: Signed 18-Jul-2014 Bilat Scrn Digital & CAD Result: Comments: See Note; NOTES: [facility] Imaging Services [address] [place] [address] Breast Imaging Report MR#: [id number] Acct: [id number] Name: IFEOMA ASHRAF Rep # : [id number] : 1965 F 49 From: Prashant Delgadillo MD PCP: Sangeetha Irvin DO Status: REG CLI Exam# [id number] Ordering Dr: Sangeetha Irvin DO MAMMOGRAPHY - [...] Prashant Delgadillo MD at 8:36 EDT Tel [phone], Servi ce support [phone], CC: Sangeetha Irvin DO Child Advocate: Signed 18-Jul-2014 Liver Result: Comments: See Note; NOTES: [facility] Imaging Services [address] [place] [address] Ultrasound Report MR#: [id number] Acct: [id number] Name: IFEOMA ASHRAF Rep #: [id number] : 1965 F 49 From: Prashant Delgadillo MD PCP: Sangeetha Irvin DO Status: REG CLI Study: Liver Date of Exam: 07/18/14 Exam# [id number] Ordering Dr: Sangeetha Irvin DO STUDY: ABDOMINAL [...] Prashant Delgadillo MD at 9:34 EDT Tel [phone], Service support [phone], CC: Sangeetha Irvin DO Child Advocate: Signed 18-Jul-2014 Thyroid Result: Comments: See Note; NOTES: [facility] Imaging Services [address] [place] [address] Ultrasound Report MR#: [id number] Acct: [id number] Name: IFEOMA ASHRAF Rep #: [id number] : 1965 F 49 From: Prashant Delgadillo MD PCP: Sangeetha Irvin DO Status: REG CLI Study: Thyroid Date of Exam: 07/18/14 Exam# [id number] Ordering Dr: Sangeetha Irvin DO STUDY: THYROID [...] Delgadillo MD at 8:41 EDT T el [phone], Service support [phone], CC: Sangeetha Irvin DO Child Advocate: Signed 05-Feb-2014 Brain/Head W/WO Contrast Result: Comments: See Note; NOTES: [facility] Imaging Services [address] [place] [address] CAT Scan Report MR#: [id number] Acct: [id number] Name: IFEOMA ASHRAF Rep #: [id number] : 1965 F 48 From: Prashant Delgadillo MD PCP: Sangeetha Irvin DO Status: REG CLI Study: Brain/Head W/WO Contrast Date of Exam: 02/05/14 Exam# [id number] Ordering Dr: Sangeetha Irvin DO STUD Y: [...] Prashant Delgadillo MD at 9:19 EDT Tel [phone], Service support [phone], CC: Sangeetha Irvin DO Child Advocate: Signed Immunization Name Dates Details Influenza (3 years and up) on: 10-Jul-2008 Comments: injection given in left deltoid, pt tolerated welllot # [id number] Influenza (3 years and up) on: 09-Jul-2009 Comments: Lot #[id number]-right deltoidDose0.5mlgiven by Juventino Nye LPN Family History [...] :58 BNP,B-Type NATRIURETIC PEPTIDE Comments: [facility] [address] [place], [place], [phone] B-TYPE JACKIE PEP 819.3 pg/mL (Abnormal) Range: 0-100 :59 CBC W/Diff, Automated Comments: [facility] [address] [place], [place], [address] Absolute Lymph 1.08 {X10_3/ul} (Normal) Range: 0.83-4.51 [...] 4.2-5.4 WBC 7.5 K/mm3 (Normal) Range: 4.4-11.0 39-Sth-538126:59 Comprehensive Metabolic Profil Comments: 'TROP' Serial specimen #1, #2, #3, or #4: 1[facility] [address] [place], [place], [id number] GAP 8 (Normal) Range: 5-15 CO2 29.0 [...] A.D.A. criteria.Please note revised GLUCOSE reference range jyvaqivfv21/02/2018. 05-Fnx-965095:59 CPK Total, Creatine Kinase Comments: 'TROP' Serial specimen #1, #2, #3, or #4: [address] [place] [address] [place], [address] CPK TOTAL 30 U/L (Normal) Range: 26-192 13-Qrs-344520:59 D-Dimer Quantitative (DVT/PE) Comments: [facility] [address] [place], [address] D-DIMER QUANT 1.44 {FEU/ug/m} (Abnormal) Range: 0.27-0.49 Comments: CRITICAL VALUE VERIFIED. CALLED TO JNNVTHUU01/10/18 1440 Francois Quinn.RESULTS READ BACK BY SAME .D-Dimer ELEVATED (>0.49): Additional studies and clinicalassessments are indicated to conclude di agnosis of:Deep Vein Thrombosis (DVT) or Pulmonary Embolism (PE) 58-Nlp-926117:59 Troponin-I Comments: 'TROP' Serial specimen #1, #2, #3, or #4: [address] [place] [address] [place], [address] TROPONIN-I 0.030 ng/mL (Normal) Comments: TROPONIN-I EXPECTED VALUES <0.045 Negative 0.045 - 0.590 Consistent with Cardiac Damage > OR = 0.600 Critical Value Not every elevated troponin is indicative of WI. T hesevalues should be used with clinical judgement in examiningthe patient's clinical picture for diagnosis. To establisha diagnosis of WI versus myocardial injury, there must be ademonstrated rise and/ or fall in the troponin values, inaddition to ischemic symptoms, EKG changes, new regionalwall motion abnormality, and/or angiographical evidence. PLEASE NOTE: REFERENCE RANGES EDITED 02/06/1829-Aug-20187-Kjb-498021:44 ANCA Comments: Is Patient Fasting? [facility] (refer to report for specific site)refer to report for address and phone number Atypical pANCA <1:20 {titer} (Normal) Comments: The atypical pANCA pattern has been observed in asignificant percentage of patients with ulcerative colitis,primary sclerosing cholangitis and autoimmune hepatitis.Performed at: [facility] [id number] Director: Omar Hood PhD, Phone: [phone] PERINUCLEAR Ab <1:20 {titer} (Normal) Comments: The presence of positive fluorescence exhibiting P-ANCA orC-ANCA patterns alone is not specific for the diagnosis ofWegener's Granulomatosis (WG) or microscopic polyangiitis.Decisions about treatment sh ould not be based solely onANCA IFA results. The International ANCA Group Consensusrecommends follow up testing of positive sera with both MS-3 and MPO- ANCA enzyme immunoassays. As many as 5% serumsamp les are positive only by EIA. Ref. AM J Clin Pvblax5144;111:507-513. CYTOPLASMIC Ab <1:20 {titer} (Normal) 2-Dge-625525:44 ANTINUCLEAR ANTIBODIES DIRECT Comments: [facility] (refer to report for specific site)refer to report for address and phone number LASHA-DIRECT Negative (Normal) Comments: Performed at: [facility] [id number] Director: Omar Hood PhD, Phone: [phone] 8-Ypd-411852:44 CPK Total, Creatine Kinase Comments: [facility] [address] [place], [phone] CPK TOTAL 33 U/L (Normal) Range: 26-192 1-Rcl-921687:44 Hemoglobin A1c Comments: [facility] [address] [place], [address] HGB A1C 10.6 % (Abnormal) Range: 4.2-6.3 3-Exm-497853:44 PRANEETH AND PE, Random UR Comments: Is Patient Fasting? [facility] (refer to report for specific site)refer to report for address and phone number NOTE Comment (Normal) Comments: Protein electrophoresis scan will follow via computer,mail, or immigration manager delivery. PRANEETH RESULT,U Comment (Normal) Comments: No monoclonality detected. M-SPIKE,UR% Not Observed % (Normal) GAMMA GLOB,U 5.5 % (Normal) BETA GLOB,U 14.2 % (Normal) YCYWR-4-RWTU,U 10.8 % (Normal) NLKYH-9-LCSM,U 7.6 % (Normal) ALBUMIN,U 62.0 % (Normal) PROTEIN,UR 27.8 mg/dL (Normal) 4-Jos-067193:44 PRANEETH + Protein Elect, Serum Comments: Is Patient Fasting? [facility] (refer to report for specific site)refer to report for address and phone number NOTE: Comment (Normal) Comments: Protein electrophoresis scan will follow via computer,mail, or immigration manager delivery. PRANEETH RESULT,S Comment (Normal) Comments: No monoclonality detected. A/G RATIO 1.2 (Normal) Range: 0.7-1.7 GLOBULIN, TOTAL 2.9 g/dL (Normal) Range: 2.2-3.9 M-SPIKE g/dL (Normal) Comments: Not Observed GAMMA GLOBULIN 0.6 g/dL (Normal) Range: 0.4-1.8 BETA GLOBULIN 1.1 g/dL (Normal) Range: 0.7-1.3 MUCEZ-6-GRPH 0.9 g/dL (Normal) Range: 0.4-1.0 TBEGV-7-ZGUQ 0.3 g/dL (Normal) Range: 0.0-0.4 ALBUMIN 3.4 g/dL (Normal) Range: 2.9-4.4 IMMUNOGL M 103 mg/dL (Normal) Range: 26-217 IMMUNO A 69 mg/dL (Abnormal) Range: 87-352 IMMUNO G 538 mg/dL (Abnormal) Range: 700-1600 PROTEIN,TOTAL 6.3 g/dL (Normal) Range: 6.0-8.5 9-Nxy-909673:44 Rheumatoid Factor Comments: [facility] [address] [place], [place], [address] RHEUMATOID FAC < 10.0 {IU/mL} (Normal) :44 Sjogren's Antibodies A/B Comments: [facility] (refer to report for specific site)refer to report for address and phone number Anti-SS-B < 0.2 {AI} (Normal) Range: 0.0-0.9 Anti-SS-A < 0.2 {AI} (Normal) Range: 0.0-0.9 8-Btt-983418:44 Thyroid Stim Hormone (TSH) Comments: [facility] [address] [place], [place], [address] TSH 2.71 {uIU/mL} (Normal) Range: 0.358-3.74 :44 Vitamin B12 1303 pg/mL (Abnormal) Comments: [facility] [address] [place], [address] Range: 211-911 :44 Vitamin D,25 Hydroxy Comments: [facility] [address]uy[address] [facility] [address] [place], [place], [address] Vitamin D 25-OH 62.4 ng/mL (Normal) Range: 29.95-100.01 Comments: Vitamin D 25(OH) Status Range Deficiency <20 ng/mL (50nmol/L) Insuffciency 20 - 30 ng/mL (50 - 75 nmol/L) Sufficiency 30 - 100 ng/mL (75 - 250 nmol/L) Toxicity >100 ng/mL (>250 nmol/L) 7-Lsc-451729:06 Basic Metabolic Profile (BMP) Comments: PLEASE FAX TO DR. CANTU [phone] [address] [place], [place], [address] GAP 12 (Normal) Range: 5-15 CO2 26.0 [...] A.D.A. criteria.Please note revised GLUCOSE reference range yupqclhhp29/02/2018. 94-Mpm-01518:22 CBC W/Diff, Automated Comments: BMP TO DULCE TIMMONS.CBCD, TSH, B12 TO DR. SANGEETHA IRVIN.[facility] [address] [place], [place], [address] Absolute Lymph 1.16 {X10_3/ul} (Normal) Range: 0.83-4.51 [...] pg/mL (Normal) Comments: BMP TO [facility].CBCD, TSH, B12 TO DR. SANGEETHA IRVIN.[facility] Kft[address]wl6868 [facility] [address] [place], [place], [address] Range: 211-911 44-Zso-70274:20 Basic Metabolic Profile (BMP) Comments: BMP TO [facility].CBCD, TSH, B12 TO DR. SANGEETHA IRVIN.[facility] [address]uhm9[address] [facility] [address] [place], [place], [address] GAP 9 (Normal) Range: 5-15 CO2 27.0 [...] A.D.A. criteria.Please note revised GLUCOSE reference range llvyplsbi50/02/2018. 29-Ham-58480:20 Thyroid Stim Hormone (TSH) Comments: BMP TO DULCE TIMMONS.CBCD, TSH, B12 TO DR. SANGEETHA IRVIN.[facility] [address] [place], [address] TSH 4.09 {uIU/mL} (Abnormal) Range: 0.358-3.74 35-Ffq-001291:23 Basic Metabolic Profile (BMP) Comments: [facility] [address] [place], [address] GAP 7 (Normal) Range: 5-15 CO2 [...] A.D.A. criteria.Please note revised GLUCOSE reference range elqyhziwt91/02/2018. 05-Usz-564739:23 BNP,B-Type NATRIURETIC PEPTIDE Comments: [facility] [address] [place], [address] B-TYPE JACKIE PEP 892.7 pg/mL (Abnormal) Range: 0-100 60-Iuf-774635:23 CBC W/Diff, Automated Comments: [facility] [address] [place], [address] Absolute Lymph 1.23 {X10_3/ul} (Normal) Range: [...] 4.2-5.4 WBC 7.2 K/mm3 (Normal) Range: 4.4-11.0 55-Ttp-805607:41 CBC W/Diff, Automated Comments: Reason for Laboratory Test .[facility] [address] [place], [place], [address] Absolute Lymph 0.85 {X10_3/ul} (Normal) Range: 0.83-4.51 [...] 4.2-5.4 WBC 5.7 K/mm3 (Normal) Range: 4.4-11.0 40-Mqh-785177:41 Comprehensive Metabolic Profil Comments: Reason for Laboratory Test .Serial Specimen #1, #2 or #3? [facility] [address] [place], [address] GAP 8 (Normal) Range: 5-15 CO2 28.0 [...] A.D.A. criteria.Please note revised GLUCOSE reference range kojtvshxy68/02/2018. 79-Mag-673419:41 LDH 224 U/L (Normal) Comments: Reason for Laboratory Test .Serial Specimen #1, #2 or #3? 1[facility] [address]xsj[address] [facility] [place], [place], [address] Range: 84-246 2-Mfk-955970:41 URINE GENESIS CULTURE-IDENTIFICATN Comments: add to urine in lab; PATIENT NOT FASTINGPERFORMED BY: [facility] Yqxvnp9558 [facility] [id number] Information: SRC:JUAN ([id number]) Result 1 ENTEAE (Abnormal) Comments: Enterobacter aerogenes1,000 [...] 2253 10.0 ng/mL (Abnormal) Range: 0.0-8.3 Comments: [employer] ECLIA methodologyPerformed at: [place] [facility] [address] [id number] Director: Omar Hood PhD, Phone: [phone] :46 CBC W/Diff, Automated Comments: [facility] [address], [place], [address] Absolute Lymph 0.95 {X10_3/ul} (Normal) Range: 0.83-4.51 [...] 4.2-5.4 WBC 5.6 K/mm3 (Normal) Range: 4.4-11.0 04-Law-71979:46 Comprehensive Metabolic Profil Comments: PLEASE ADD T3F T4F TO BLOOD FROM 05-25-[address] [place], [address] GAP 9 (Normal) Range: 5-15 CO2 28.0 [...] criteria.Please note revised GLUCOSE reference range /02/2018. :46 Digoxin Level Comments: [facility] [address] [place], [id number] DIG 0.71 ng/mL (Abnormal) Range: 0.80-2.00 :46 Free T3 Comments: PLEASE ADD T3F T4F TO BLOOD FROM 05-25-18 TH 5 [facility] [address] [place], [address] FREE T3 3.2 pg/mL (Normal) Range: 2.18-3.98 :46 Hemoglobin A1c Comments: [place] [address] [place], [address] HGB A1C 5.4 % (Normal) Range: 4.2-6.3 :46 Lipid Profile Comments: PLEASE ADD T3F T4F TO BLOOD FROM 05-25-18 [facility] 5 [facility] [address] [place], [address] VLDL 22 mg/dL (Normal) Range: 5-40 LDL [...] :46 Microalb:Creat Ratio,Random UR Comments: [facility] [address] [place], [address] MALB:CREAT 7.8 {mg/g_CRE} (Normal) MICROALBUMIN,UR 10.9 mg/L (Normal) UR CREAT 139.00 mg/dL (Normal) :46 T4 Free Direct Comments: PLEASE ADD T3F T4F TO BLOOD FROM 05-25-[address] [place] [address] [address] [place], [address] T4 FREE DIRECT 1.11 ng/dL (Normal) Range: 0.76-1.46 :46 Thyroid Stim Hormone (TSH) Comments: PLEASE ADD T3F T4F TO BLOOD FROM 05-25-18 THG2 5 [facility] [address] [place], [address] TSH 0.31 {uIU/mL} (Abnormal) Range: 0.358-3.74 :46 Urinalysis, Complete Comments: How was Urine Obtained? CLEAN [facility] [address] [place], [address] MUCUS, URINE 0 SEEN {/hpf} (Normal) [...] B12 368 pg/mL (Normal) Comments: [facility] [address] [place], [address] Range: 211-911 86-Fnd-48966:46 Vitamin D,25 Hydroxy Comments: [facility] [address] [place], [address] Vitamin D 25-OH 64.5 ng/mL (Normal) Range: 29.95-100.01 Comments: Vitamin D 25(OH) Status Range Deficiency <20 ng/mL (50nmol/L) Insuffciency 20 - 30 ng/mL (50 - 75 nmol/L) Sufficiency 30 - 100 ng/mL (75 - 250 nmol/L) Toxicity >100 ng/mL (>250 nmol/L) 06-Xgf-204779:52 Urinalysis, Complete Comments: Order Date: 04/06/18Has pt arrived? YHow was Urine Obtained? [facility] [address] [place], [address] HYALINE CAST 5-10 SEEN {/lpf} (Normal) [...] (Normal) CLARITY Cloudy (Normal) COLOR Yellow (Normal) 53-Iph-548169:30 CBC W/Diff, Automated Comments: [facility] [address] [place], [address] OVALOCYTE RARE (Normal) MACROCYTE 1+ (Normal) [...] 4.2-5.4 WBC 9.1 K/mm3 (Normal) Range: 4.4-11.0 07-Woc-952719:30 Comprehensive Metabolic Profil Comments: [facility] [address] [place], [address] GAP 12 (Normal) Range: 5-15 CO2 30.0 [...] Comments: Please note revised GLUCOSE reference range gyxgidxkd27/02/2018. 53-Xfa-533662:30 Lactic Acid Comments: Yes/No query for Sepsis Lactate Rule [facility] [address] [place], [address] LACTIC ACID 6.7 mmol/L (Abnormal) Range: 0.4-2.0 Comments: Critical Result(s) Called Lisa RIVERA at: 20:23: by: BRITTANY TORRES 55-Ggf-763372:30 Partial Thromboplast Time Comments: [facility] [address] [place], [address] PTT 41.3 s (Abnormal) Range: 24.1-36.2 30-Ixb-920666:30 Prothrombin Time w/INR Comments: [facility] [address] [place], [address] INR 2.3 (Normal) PROTIME 25.6 s (Abnormal) Range: 11.7-14.9 28-Gyg-270585:30 Troponin-I Comments: [facility] [address] [place], [address] TROPONIN-I 0.046 ng/mL (Abnormal) Comments: TROPONIN-I EXPECTED VALUES <0.045 Negative 0.045 - 0.590 Consistent with Cardiac Damage > OR = 0.600 Critical Value Not every elevated troponin is indicative of WI. T hesevalues should be used with clinical judgement in examiningthe patient's clinical picture for diagnosis. To establisha diagnosis of WI versus myocardial injury, there must be ademonstrated rise and/ or fall in the troponin values, inaddition to ischemic symptoms, EKG changes, new regionalwall motion abnormality, and/or angiographical evidence. PLEASE NOTE: REFERENCE RANGES EDITED 02/06/1805-Apr-201816-Bkl-963539:08 Ammonia Comments: [facility] [address] [place], [address] AMMONIA 20.0 umol/L (Normal) Range: 11-32 93-Min-581452:08 CBC-Complete Blood Cnt No Diff Comments: [facility] [address] [place], [address] MPV 10.6 fL (Normal) Range: [...] 4.2-5.4 WBC 6.6 K/mm3 (Normal) Range: 4.4-11.0 17-Nif-099197:08 Comprehensive Metabolic Profil Comments: [facility] [address] [place], [place], [address] GAP 9 (Normal) Range: 5-15 CO2 35.0 [...] Please note revised GLUCOSE reference range /02/2018. 22-Fjq-025768:08 Differential Comment Comments: [facility] [address] [place], [address] SMEAR COMMENT COMMENT (Normal) Comments: SLIDE SCANNED - 1+ ANISO NOTED. 06-Czz-77109:55 Urinalysis, Complete Comments: How was Urine Obtained? [facility] [address]hfx[address] [place], [address] AMORPHOUS 2+ (Normal) HYALINE CAST [...] (Normal) CLARITY Cloudy (Normal) COLOR Yellow (Normal) 20-Ajp-78746:55 Urine Drug Screen (VISTA) Comments: [facility] [address] [place], [place], [address] TO BE CONFIRMED (Normal) Comments: CONFIRMATORY TESTING [...] TESTING MUST BE ORDERED SEPARATELY. USE TESTMNEMONIC: [facility] 06-Mzy-31197:59 Bedside Glucose Comments: [facility] LaboratoryPoint of [address] [place] [address] BEDSIDE GLU 169 mg/dL (Abnormal) Range: 70-110 Comments: MANAGEMENT OF PATIENT CARE PER NURSING PROTOCOL 45-Juw-90495:35 Basic Metabolic Profile (BMP) Comments: [facility] [address] [place], [address] GAP 16 (Abnormal) Range: 5-15 CO2 15.0 mmol/L (Abnormal) Range: 21.0-32.0 CL 104 mmol/L (Normal) Range: 98-107 K 6.2 mmol/L (Abnormal) Range: 3.5-5.1 Comments: Critical Result(s) Called at: 01:06:28 03/08/2018 by:ANSLEY STANFORD,TRACK MAN NA 135 mmol/L (Abnormal) Range: 136-145 CA [...] A.D.A. criteria.Please note revised GLUCOSE reference range xadfmdkhv97/02/2018. 26-Dem-476284:59 Acetaminophen (Tylenol) Level Comments: [facility] [address] [place], [address] ACETAMINOPHEN 4.9 ug/mL (Abnormal) Range: 10.0-30.0 Comments: Slight Icterus, Result may be falsely decreased. :59 Acetone Serum Comments: [facility] [address] [place], [address] ACETONE SERUM NEGATIVE (Normal) 73-Agi-248812:59 Alcohol, Blood (Medical)-Serum Comments: [facility] [address] [place], [address] SERUM ETOH 8.0 mg/dL (Normal) Comments: The serum:whole blood ethanol ratio is approximately 1.14and varies slightly with hematocrit.Medical Alcohol reference interval and critical value innon-tolerant individuals; 50 - 100 Impairment 100 Intoxication 100 - 250 Severe Poisoning 250 - 400 Deep/possible fatal coma 80-Tax-704118:59 Digoxin Level Comments: [facility] [address] [place], [address] DIG 0.32 ng/mL (Abnormal) Range: 0.80-2.00 71-Kkh-778822:59 Lactic Acid Comments: Yes/No query for Sepsis Lactate Rule [facility] [address]qf[address] [place], [address] LACTIC ACID 12.4 mmol/L (Abnormal) Range: 0.4-2.0 Comments: Critical Result(s) Called at: 00:52:58 03/08/2018 by:ANSLEY OWENSTRACK MAN 40-Vuk-119155:59 Partial Thromboplast Time Comments: [facility] [address]pejlr[address] [place], [address] PTT 33.7 s (Normal) Range: 24.1-36.2 27-Rww-885068:59 Prothrombin Time w/INR Comments: [facility] [address] [place], [address] INR 2.4 (Normal) PROTIME 26.4 s (Abnormal) Range: 11.7-14.9 33-Npa-170289:59 Salicylate Comments: [facility] [address]urgjs[address] [place], [address] SALICYLATE < 1.7 mg/dL (Abnormal) Range: 2.8-20.0 Comments: Slight Icterus, Result may be falsely decreased. 29-Rer-554229:02 Blood Gases by [facility] Comments: [facility] LaboratoryPoint of Cvun[address] [place] [address] SO2 ISTAT 99 % (Normal) Range: [...] Radial (Normal) BLD GAS TYPE ART (Normal) 91-Rkq-457118:52 Bedside Glucose Comments: [facility] LaboratoryPoint of Idtr[address] [place], [place] [address] BEDSIDE GLU 214 mg/dL (Abnormal) Range: 70-110 Comments: MANAGEMENT OF PATIENT CARE PER NURSING PROTOCOL 51-Zwu-476140:37 Basic Metabolic Profile (BMP) Comments: [facility] Okvirbueox9636 [facility] [address] [place], [place], [address] GAP 19 (Abnormal) Range: 5-15 CO2 11.0 [...] A.D.A. criteria.Please note revised GLUCOSE reference range hmlspybpe59/02/2018. :37 CBC W/Diff, Automated Comments: [facility] [address] [place], [place], [address] CRENATED RBC 1+ (Normal) ANISO 1+ (Normal) [...] Range: 4.4-11.0 :37 Lipase Comments: [facility] [id number] [place], [address] LIPASE 86 U/L (Normal) Range: 73-393 [id number] Liver Profile Comments: [facility] [id number] [place], [address] D BILI 1.07 mg/dL (Abnormal) Range: 0.00-0.30 [...] Range: 6.4-8.2 :37 Magnesium Comments: [facility] [id number] [facility] [place], [address] MG 2.0 mg/dL (Normal) Range: 1.6-2.6 Comments: Moderate Hemolysis, Result may be falsely increased. :37 Troponin-I Comments: [address] [place], [address] TROPONIN-I 0.081 ng/mL (Abnormal) Comments: TROPONIN-I EXPECTED VALUES <0.045 Negative 0.045 - 0.590 Consistent with Cardiac Damage > OR = 0.600 Critical Value Not every elevated troponin is indicative of WI. T hesevalues should be used with clinical judgement in examiningthe patient's clinical picture for diagnosis. To establisha diagnosis of WI versus myocardial injury, there must be ademonstrated rise and/ or fall in the troponin values, inaddition to ischemic symptoms, EKG changes, new regionalwall motion abnormality, and/or angiographical evidence. PLEASE NOTE: REFERENCE RANGES EDITED 02/06/1824-Feb-20188-Lme-880266:21 CMV ANTIBODY (76121) Comments: today; PATIENT NOT FASTINGPERFORMED BY: [facility] [id number] Cytomegalovirus (CMV) Ab, IgG <0.60 U/mL (Normal) Range: 0.00-0.59 Comments: Negative <0.60 Equivocal 0.60 - 0.69 Positive >0.69 6-Sur-126249:21 HEPATITIS PANEL (22736) Comments: today; PATIENT NOT FASTINGPERFORMED BY: [facility]6[address] [facility] [id number] Hep C Virus Ab <0.1 {s/co_ratio} (Normal) Range: 0.0-0.9 Comments: Negative: < 0.8 Indeterminate: 0.8 - 0.9 Positive: > 0.9 . The CDC recommends that a positive HCV antibody result be followed up with a HCV Nucleic Acid Amplification test (282517). Hep B Core Ab, IgM Negative (Normal) HBsAg Screen Negative (Normal) Hep A Ab, IgM Negative (Normal) 5-Jbe-023168:21 EBV Panel (21513) Comments: today; PATIENT NOT FASTINGPERFORMED BY: [facility]6[address] [facility] [id number] Interpretation: SPRCS (Normal) Comments: EBV Interpretation Chart [...] <36.0 Equivocal 36.0 - 43.9 Positive >43.9 36-Dft-212497:19 CBC W/Diff, Automated Comments: Order Date: 02/23/18Order Info: 0184-1 - CBCDOrder Info: 37212-8 - [facility] Kdxnltrqzs1887 [address] [place], [place], [address] MACROCYTE 1+ (Normal) ANISO RARE (Normal) Absolute [...] 4.2-5.4 WBC 6.9 K/mm3 (Normal) Range: 4.4-11.0 04-Atz-082344:19 Comprehensive Metabolic Profil Comments: Order Date: 02/23/18Order Info: 0786-1 - CMPOrder Info: 1798-8 - AMYOrder Info: 3040-3 - [facility] Ipbjytcujr3408 [place], [address] GAP 11 (Normal) Range: 5-15 CO2 25.0 [...] A.D.A. criteria.Please note revised GLUCOSE reference range tbfesyovz41/02/2018. 83-Qfs-232536:19 Erythrocyte Sed Rate Comments: Order Date: 02/23/18Order Info: 0184-1 - CBCDOrder Info: 38174-5 - [facility] Myfnoeggli7534 [place], [address] SED RATE 16 mm/h (Normal) Range: 0-30 18-Sih-536401:19 Lipase (64472) Comments: Order Date: 02/23/18Order Info: 0786- 1 - CMPOrder Info: 1798-8 - AMYOrder Info: 3040-3 - [facility] Dnzjzwhtlx6220 [address] [place], [address] LIPASE 92 U/L (Normal) Range: 73-393 45-Ezf-465280:19 Amylase (34012) Comments: Order Date: 02/23/18Order Info: 0786- 1 - CMPOrder Info: 1798-8 - AMYOrder Info: 3040-3 - [facility] Entmsddupu6244 [address] [place], [phone](363) ARIAN 27 U/L (Normal) Range: 25-115 7-Oam-984042:15 Amylase Comments: CMP, CBCD IS FOR DR ORONA IS FOR [facility] Lnlwjtiqkp8370 [address] [place], [address](095) ARIAN 29 U/L (Normal) Range: 25-115 6-Wep-445775:15 CBC W/Diff, Automated Comments: CMP, CBCD IS FOR DR ORONA IS FOR [facility] Ueykegqvoa3781 [place], [address] ANISO 1+ (Normal) Absolute Lymph 0.41 {X10_3/ul} [...] 4.2-5.4 WBC 5.3 K/mm3 (Normal) Range: 4.4-11.0 8-Aeo-682457:15 Comprehensive Metabolic Profil Comments: CMP, CBCD IS FOR DR ORONA IS FOR DR Benjamindequan [facility] Emgpekgsll4195 [place], [place], [address] GAP 9 (Normal) Range: 5-15 CO2 27.0 [...] A.D.A. criteria.Please note revised GLUCOSE reference range aubjsnaod02/02/2018. 9-Hrp-478745:15 Digoxin Level Comments: [facility], CBCD IS FOR DR ORONA IS FOR [facility] Vazvgrokpi[address] [place], [place], [id number] DIG 0.92 ng/mL (Normal) Range: 0.80-2.00 7-Bng-475219:15 Lipase Comments: [facility], CBCD IS FOR DR ORONA IS FOR [facility] Kjvfgglzmt9822 [address] [place], [place], [address] LIPASE 101 U/L (Normal) Range: 73-393 4-Twu-746228:15 Lipid Profile Comments: [facility], CBCD IS FOR DR ORONA IS FOR [facility] Kceosqegnc8161 [address] [place], [place], [address] VLDL 15 mg/dL (Normal) Range: 5-40 LDL [...] 200-240 mg/dL Borderline >240 mg/dL High Risk 9-Och-874729:15 Magnesium Comments: CMP, CBCD IS FOR DR ORONA IS FOR [facility] [address]wwqfkux[address] [place], [address] MG 1.8 mg/dL (Normal) Range: 1.6-2.6 6-Cxz-731441:15 Microalb:Creat Ratio,Random UR Comments: CMP, CBCD IS FOR DR ORONA IS FOR [facility] Jvvoyiwqlz2398 [place], [address] MALB:CREAT 34.3 {mg/g_CRE} (Abnormal) MICROALBUMIN,UR 58.6 mg/L (Normal) UR CREAT 171.00 mg/dL (Normal) 0-Dja-911524:15 Thyroid Stim Hormone (TSH) Comments: CMP, CBCD IS FOR DR ORONA IS FOR [facility] Stxjufgpmr3301 [place], [address] TSH 1.84 {uIU/mL} (Normal) Range: 0.358-3.74 9-Nhs-395279:15 Vitamin B12 383 pg/mL (Normal) Comments: CMP, CBCD IS FOR DR ORONA IS FOR [facility] Pxlgqqzpta8389 [place], [address] Range: 211-911 3-Ofz-911736:15 Vitamin D,25 Hydroxy Comments: CMP, CBCD IS FOR DR ORONA IS FOR [facility] Juaptgxzsp5492 [place], [address] Vitamin D 25-OH 72.0 ng/mL (Normal) Range: 29.95-100.01 Comments: Vitamin D 25(OH) Status Range Deficiency <20 ng/mL (50nmol/L) Insuffciency 20 - 30 ng/mL (50 - 75 nmol/L) Sufficiency 30 - 100 ng/mL (75 - 250 nmol/L) Toxicity >100 ng/mL (>250 nmol/L) 83-Tow-403267:14 Blood Glucose , Office (42681) Blood Glucose , Office 137 (Normal) 48-Bsu-281454:14 HgA1C , Office (56220) HgA1C , Office 6.1 % (Normal) Range: 4.6 - 7.1 :35 CBC W/Diff, Automated Comments: [facility] Qzxxrjbslx4242 [address] [place], [place], [address] Absolute Lymph 1.30 {X10_3/ul} (Normal) Range: 0.83-4.51 [...] Metabolic Profil Comments: Reason for Laboratory Test [facility] Oxzfpcetyq5022 [address] [place], [phone] GAP 8 (Normal) Range: 5-15 CO2 31.0 mmol/L (Normal) Range: 21.0-32.0 CL 99 mmol/L (Normal) Range: 98-107 K 3.4 mmol/L (Abnormal) Range: 3.5-5.1 NA 138 mmol/L (Normal) Range: 136-145 T BILI 0.70 mg/dL (Normal) Range: 0.20-1.00 ALT 27 U/L (Normal) Range: 13-56 Comments: Please note revised ALT reference range jnafqpqoy80/28/2018. ALK P 102 U/L (Normal) Range: 45-117 [...] A.D.A. criteria.Please note revised GLUCOSE reference range vijzkbrfo58/02/2018. :33 LDH 198 U/L (Normal) Comments: Reason for Laboratory Test OVSerial Specimen #1, #2 or #3? 1[facility] Izvxskyrqm4235 [address] [place], [place], [address] Range: 84-246 97-Xdf-130136:15 Culture, Urine Comments: [facility] Kpscvheogq9335 [address] [place], [place], [address] CUUR See Note (Normal) Comments: VERBAL ORDER DR. IRVIN'S OFFICE Urine CultureORGANISM 1: Mixed Gram Positive OrganismsColony Count 11,000-25,000MIX CULTURE Mixed contaminants. Submit a new specimen if indicated. 74-Pkp-743155:11 CBC W/Diff, Automated Comments: [facility] Tkvvthkqoq5126 [address] [place], [place], [address] Absolute Lymph 1.34 {X10_3/ul} (Normal) Range: 0.83-4.51 [...] 4.2-5.4 WBC 5.4 K/mm3 (Normal) Range: 4.4-11.0 94-Wen-879775:11 Comprehensive Metabolic Profil Comments: Comments: [facility] Mptzjezazn8943 [place], [address] GAP 7 (Normal) Range: 5-15 CO2 28.0 mmol/L (Normal) Range: 21.0-32.0 CL 100 mmol/L (Normal) Range: 98-107 K 3.9 mmol/L (Normal) Range: 3.5-5.1 NA 135 mmol/L (Abnormal) Range: 136-145 T BILI 0.70 mg/dL (Normal) Range: 0.20-1.00 ALT 31 U/L (Normal) Range: 13-56 Comments: Please note revised ALT reference range smgyfmthf38/28/2018. ALK P 110 U/L (Normal) Range: 45-117 [...] A.D.A. criteria.Please note revised GLUCOSE reference range gxwaweyfh99/02/2018. 15-Npf-993099:10 Urinalysis, Complete Comments: ORDERED UACDR.JACINDA ORDERED CMP AND CBCDComments: clean catchComments: clean catchHow was Urine Obtained? CORRECTIONAL SERGEANT TO [facility] Mpoxbqpyxb6553 [place], [address] MUCUS, URINE RARE {/hpf} (Normal) [...] (Normal) CLARITY Cloudy (Normal) COLOR Yellow (Normal) 2-Dym-572449:42 ,Serum,hCG Quali. Comments: Comments: use blood in [facility] Indwopwmkj1380 [place], [address] HCGSQUAL NEGATIVE {Negative} (Normal) Range: 0-9 Nonpreg HCG Qual triggr 2 m[iU]/mL (Normal) 1-Skl-092563:41 Basic Metabolic Profile (BMP) Comments: [facility] Omnifgpakg4214 [place], [address] GAP 10 (Normal) Range: 5-15 [...] A.D.A. criteria.Please note revised GLUCOSE reference range uolhcwhpg27/02/2018. 8-Bjb-700085:41 CBC-Complete Blood Cnt No Diff Comments: [facility] Wpcqxtqoqf8149 [place], [address] MPV 9.6 fL (Normal) Range: [...] 4.2-5.4 WBC 8.7 K/mm3 (Normal) Range: 4.4-11.0 5-Ihu-446664:41 Prothrombin Time w/INR Comments: [facility] [address] [place], [address] INR 1.0 (Normal) PROTIME 12.9 s (Normal) Range: 11.7-14.9 03-Nov-20179:00 Culture, Urine Comments: [facility] Gzijncauds23[address] [place], [address] CUUR See Note (Normal) Comments: [...] S(NF) indicates non-formulary drug at [facility]. Approval by Infectious Disease Specialist required before non- formulary drugs may be ordered and/or dispensed. :27 AFP, Tumor Marker Comments: Is Patient ? NPatient's Weight (LBS.): 124Number of Fetuses: 0[facility] (refer to report for specific site)refer to report for address and phone number AFP TUMOR 2253 6.8 ng/mL (Normal) Range: 0.0-8.3 Comments: Khanh ECLIA methodologyPerformed at: CB - [facility] [address] [id number] Director: Omar Hood PhD, Phone: [phone] :27 CBC W/Diff, Automated Comments: [facility] Rxnmtuigjo0020 [address] [place] [place], [place], [address] Absolute Lymph 1.47 {X10_3/ul} (Normal) Range: 0.83-4.51 [...] 4.2-5.4 WBC 6.0 K/mm3 (Normal) Range: 4.4-11.0 62-Osw-96745:27 Comprehensive Metabolic Profil Comments: [facility] Ybqttbxnhc7406 [place], [address] GAP 9 (Normal) Range: 5-15 CO2 28.0 [...] :27 Microalb:Creat Ratio,Random UR Comments: [facility] Hqpndiacbg[address] [facility] [address] [place], [place], [address] MALB:CREAT 17.4 {mg/g_CRE} (Normal) MICROALBUMIN,UR 37.5 mg/L (Normal) UR CREAT 215.00 mg/dL (Normal) :40 CBC W/Diff, Automated Comments: [facility] [address] [place], [place], [address] Absolute Lymph 1.60 {X10_3/ul} (Normal) Range: 0.83-4.51 [...] 4.2-5.4 WBC 10.9 K/mm3 (Normal) Range: 4.4-11.0 17-Eow-09769:39 Comprehensive Metabolic Profil Comments: Order Date: 12/06/16Order Info: 0786-1 - *CMP Complete Metabolic PanelWMarymount Hospital Xmcipshgab4025 [place], [address] GAP 10 (Normal) Range: 5-15 CO2 27.0 [...] criteria. :15 Culture, Urine Comments: [facility] [address]ydccknnnp[address] [place], [address] CUUR See Note (Normal) Comments: Urine CultureORGANISM [...] S(NF) indicates non-formulary drug at [facility]. Approval by Infectious Disease Specialist required before non-formulary drugs may be ordered and/or dispensed. :35 HgA1C , Office (82743) HgA1C , Office 6.5 % (Normal) Range: 4.6 - 7.1 :07 AFP, Tumor Marker Comments: Is Patient ? [facility] (refer to report for specific site)refer to report for address and phone number AFP TUMOR 2253 8.5 ng/mL (Abnormal) Range: 0.0-8.3 Comments: Khanh ECLIA methodologyPerformed at: - [facility] [id number] Director: Omar Hood PhD, Phone: [phone] :[phone] CBC W/Diff, Automated Comments: [facility] Jplpwowdqf80[address] [place], [address] Absolute Lymph 1.17 {X10_3/ul} (Normal) [...] :07 Comprehensive Metabolic Profil Comments: [facility] Ffrxgdpcod9067 [address], [address] GAP 9 (Normal) Range: 5-15 CO2 28.0 [...] the [place] Food and Drug Administration.Performed at: [place] [id number] Director: Zia Jarvis MD, Phone: [phone] INS RES/DIAB RK . (Normal) LDL SIZE [...] :07 Vitamin D,25 Hydroxy Comments: [facility] Egucwymxte6657 [address] [place], [address] Vitamin D 25-OH 61.8 ng/mL (Normal) Comments: Vitamin D 25(OH) Status Range Deficiency <20 ng/mL (50nmol/L) Insuffciency 20 - 30 ng/mL (50 - 75 nmol/L) Sufficiency 30 - 100 ng/mL (75 - 250 nmol/L) Toxicity >100 ng/mL (>250 nmol/L) :48 Liver Profile Comments: [facility] [address] [place], [address] D BILI 0.14 mg/dL (Normal) Range: 0.00-0.30 T BILI 0.50 mg/dL (Normal) Range: 0.20-1.00 ALT 57 U/L (Normal) Range: 12-78 ALK P 94 U/L (Normal) Range: 45-117 AST 40 U/L (Abnormal) Range: 15-37 GLOB 2.8 g/dL (Normal) Range: 2.3-3.5 ALB 3.9 g/dL (Normal) Range: 3.4-5.0 T PROT 6.7 g/dL (Normal) Range: 6.4-8.2 :45 Potassium Comments: [facility] Z[address] [place], [address] K 4.3 mmol/L (Normal) Range: 3.5-5.1 :35 CBC W/Diff, Automated Comments: [facility] [address] [place], [address] Absolute Lymph 1.24 {X10_3/ul} (Normal) Range: [...] :35 Comprehensive Metabolic Profil Comments: [facility] Apyjmwelhn6745 [place], [address] GAP 10 (Normal) Range: 5-15 CO2 31.0 [...] 126 mg/dLsuggests DIABETES MELLITUS per A.D.A. criteria. 47-Cis-54684:0 ASPIRATION (SLIDES ONLY) See Note (Normal) Comments: [facility] Eziagnpkpd7377 [place], [address] 0 Comments: Patient: IFEOMA ASHRAF : 1965 (52/F) Acct Num: [id number] Phys: Janelle KING,Alejandro Unit Num: [id number] Loc: LABSPEC Specimen: [id number] Received: 03/18/171126 Spec Ty pe: ASPIRATION TISSUES TISSUES: COMMENT Correlation with clinical, radiologic findings and appropriate follow up are necessary. CYTOLOGY GROSS Received are ten smears labeled wi th the patient's name and designated per the requisition as left thyroid FNA. Submitted for staining. / 03/18/17 TC:5 CPT: 81113 CYTOLOGY STUDY Slides are reviewed. The specimen [...] <signature on file> :30 HEPATITIS C ANTIBODY (37871) Comments: PATIENT NOT FASTINGPERFORMED BY: [facility] HospitalGyzalz0119 [facility] [id number] Hep C Virus Ab <0.1 {s/co_ratio} (Normal) Range: 0.0-0.9 Comments: Negative: < 0.8 Indeterminate: 0.8 - 0.9 Positive: > 0.9 . The CDC recommends that a positive HCV antibody result be followed up with a HCV Nucleic Acid Amplification test (788956). :30 Potassium Serum (37607) Comments: PATIENT NOT FASTINGPERFORMED BY: [facility] HospitalJkxxgv5707 [facility] [id number] Potassium, Serum 4.8 mmol/L (Normal) Range: 3.5-5.2 :29 HgA1C , Office (73317) HgA1C , Office 7.9 % (Abnormal) Range: 4.6 - 7.1 :53 CBC W/Diff, Automated Comments: [facility] Oyxolkrbzn5923 [address] [place], [place], [address] Absolute Lymph 1.57 {X10_3/ul} (Normal) Range: 0.83-4.51 [...] :53 Comprehensive Metabolic Profil Comments: [facility] Dqlvivbwww2[address] [place], [address] GAP 11 (Normal) Range: 5-15 CO2 32.0 [...] criteria. :53 Lipid Profile Comments: [facility] [address] [place], [address] VLDL 37 mg/dL (Normal) Range: [...] :53 Microalb:Creat Ratio,Random UR Comments: [facility] [address] [place], [address] MALB:CREAT 19.7 {mg/g_CRE} (Normal) MICROALBUMIN,UR 27.8 mg/L (Normal) UR CREAT 141.00 mg/dL (Normal) :53 Thyroid Stim Hormone (TSH) Comments: [facility] [address] [place], [address] TSH 2.39 {uIU/mL} (Normal) Range: 0.358-3.74 :53 Vitamin D,25 Hydroxy Comments: [facility] [address]dsvoqzet[address] [place], [address] Vitamin D 25-OH 79.9 ng/mL (Normal) Comments: Vitamin D 25(OH) Status Range Deficiency <20 ng/mL (50nmol/L) Insuffciency 20 - 30 ng/mL (50 - 75 nmol/L) Sufficiency 30 - 100 ng/mL (75 - 250 nmol/L) Toxicity >100 ng/mL (>250 nmol/L) 79-Wqr-442400:08 CBC W/Diff, Automated Comments: [facility] Lhilyijbhy68[address] [place], [place], [address] Absolute Lymph 2.04 {X10_3/ul} (Normal) Range: 0.83-4.51 [...] 4.2-5.4 WBC 9.0 K/mm3 (Normal) Range: 4.4-11.0 19-Tzb-203992:08 Comprehensive Metabolic Profil Comments: [facility] Nzfvuudxug3903 [address] [place], [place], [address] GAP 9 (Normal) Range: 5-15 CO2 27.0 [...] 126 mg/dLsuggests DIABETES MELLITUS per A.D.A. criteria. 51-Bel-093904:00 Culture, Urine Comments: [facility] Jlbwpedqli8005 [facility] [address] [place], [place], [address] CUUR See Note (Normal) Comments: Urine CultureORGANISM 1: Mixed Gram Positive OrganismsColony Count >100,000MIX CULTURE Mixed contaminants. Submit a new specimen if indicated. 2-Zbt-000162:25 CBC W/Diff, Auto - EPLAB Comments: At [facility] Medical Oncologypatients receive CBC w/auto Differential ONLY. Physicianwill place an order for a manual differential or Pathologistreview at his discretion. [facility]. [address] [place] [address] MULTIPLE GAMES DEALER: MATEO CASTANEDA DO PH:[phone] Umlzmcmiob6172 [place] [place], [address] Absolute Lymph 1.42 {X10_3/uL} (Normal) [...] 4.2-5.4 WBC 6.3 K/mm3 (Normal) Range: 4.4-11.0 2-Ueu-310245:25 Comprehensive Metabolic Profil Comments: Order Date: 06/07/16Order Date: 16Serial Specimen #1, #2 or #3? 1WM[facility] [address]osvbyhvps3465 [place], [address] GAP 11 (Normal) Range: 5-15 CO2 [...] 200 mg/dLsuggests DIABETES MELLITUS per A.D.A. criteria. 5-Gge-478864:25 LDH 208 U/L (Normal) Comments: Order Date: 06/07/16Order Date: 16Serial Specimen #1, #2 or #3? [address] [place] [address] Jkwmyxiefz1260 [address] [place], [place], [address] Range: 84-246 8-Gdt-028209:25 Uric Acid Comments: Order Date: 06/07/16Order Date: 16Serial Specimen #1, #2 or #3? [address] [place] [address] Wdwapvxszm0871 [address] [place], [place], [address] URIC 3.8 mg/dL (Normal) Range: 2.6-6.0 Comments: The drugs N-Acetylcysteine and Metamizole may falsely deressthis assay. :10 HgA1C , Office (15038) HgA1C , Office 8.0 % (Abnormal) Range: 4.6 - 7.1 :10 Blood Glucose , Office (16608) Blood Glucose , Office 223 (Normal) :24 AFP, Tumor Marker Comments: Is Patient ? N[facility] (refer to report for specific site)refer to report for address and phone number AFP TUMOR 2253 8.5 ng/mL (Abnormal) Range: 0.0-8.3 Comments: Sipwise ECLIA methodologyPerformed at: [facility] [id number] Director: Omar Hood PhD, Phone: [phone] :24 CBC W/Diff, Automated Comments: [facility] Atjhssycga4748 [place], [address] Absolute Lymph 1.35 {X10_3/ul} (Normal) [...] 4.2-5.4 WBC 4.1 K/mm3 (Abnormal) Range: 4.4-11.0 12-Lry-57904:24 Comprehensive Metabolic Profil Comments: [facility] Lqysbgkgip8807 [address] [place], [place], [address] GAP 9 (Normal) Range: 5-15 CO2 27.0 [...] 126 mg/dLsuggests DIABETES MELLITUS per A.D.A. criteria. 80-Htu-21603:24 NMR Lipoprofile Comments: [facility] (refer to report [...] the US Food and Drug Administration.Performed at: [facility] [address] [place] [id number] Director: Zia Jarvis MD, Phone: [phone] INS RES/DIAB RK . (Normal) LDL SIZE [...] mg/dL (Normal) Range: 100-199 LIPIDS . (Normal) 33-Nnf-422746:53 CBC W/Diff, Automated Comments: [facility] S[address]jpstsnql37[address] [place], [address] Absolute Lymph 1.41 {X10_3/ul} (Normal) Range: 0.83-4.51 [...] 4.2-5.4 WBC 12.2 K/mm3 (Abnormal) Range: 4.4-11.0 46-Gkl-393511:53 Comprehensive Metabolic Profil Comments: [facility] Vmwgnpuwge4880 [address] [place], [place], [address] GAP 13 (Normal) Range: 5-15 CO2 24.0 [...] :42 CBC W/Diff, Automated Comments: [facility] Ztyaqrkgme[address] [place], [place], [address] Absolute Lymph 1.92 {X10_3/ul} (Normal) Range: 0.83-4.51 [...] :42 Comprehensive Metabolic Profil Comments: [facility] [address] [place], [address] GAP 11 (Normal) Range: 5-15 CO2 25.0 [...] Comments: Order Date: 06/07/16Order Date: 06/07/16[facility] Abidcdndjq9[address] [place], [address] MG 2.0 mg/dL (Normal) Range: 1.8-2.4 :57 CBC W/Diff, Auto - EPLAB Comments: At [facility] Outpatient [facility] [place] Medical Oncologypatients receive CBC w/auto Differential ONLY. Physicianwill place an order for a manual differential or Pathologistreview at his discretion. [facility]. [address] [place] [address] [address] MULTIPLE GAMES DEALER: MATEO CASTANEDA DO PH:[phone] Clinic [facility] Wdcodntkha8985 [place], [address] Absolute Lymph 1.38 {X10_3/uL} (Normal) [...] Profil Comments: Order Date: 06/07/16OV Order #: [id number] Specimen #1, #2 or #3? 1 [id number] Hospital Gvdjgpwfgk86[address] [place], [place], [address] GAP 13 (Normal) Range: 5-15 CO2 24.0 [...] (Normal) Comments: Order Date: 06/07/16 Order #: [id number] Specimen #1, #2 or #3? [id number] [place] [address] Fzxpsvvbne2826 [place], [address] Range: 84-246 :56 Magnesium Comments: Order Date: 06/07/16 Order #: [id number] Specimen #1, #2 or #3? [id number] [place] [address] Dnqvnpolcn5489 [place], [address] MG 1.5 mg/dL (Abnormal) Range: 1.8-2.4 :56 Uric Acid Comments: Order Date: 06/07/16 Order #: [id number] Specimen #1, #2 or #3? 1 [id number] Xlpwrkslaa3594 [address] [place], [place], [address] URIC 4.8 mg/dL (Normal) Range: 2.6-6.0 Comments: The drugs N-Acetylcysteine and Metamizole may falsely deressthis assay. :30 Liver Profile Comments: [facility] Jaqzolopxw[address] [place], [place], [address] D BILI 0.13 mg/dL (Normal) Range: 0.00-0.30 T BILI 0.40 mg/dL (Normal) Range: 0.20-1.00 ALT 60 U/L (Normal) Range: 12-78 ALK P 126 U/L (Normal) Range: 50-136 AST 37 U/L (Normal) Range: 15-37 GLOB 2.7 g/dL (Normal) Range: 2.3-3.5 ALB 3.4 g/dL (Normal) Range: 3.4-5.0 T PROT 6.1 g/dL (Abnormal) Range: 6.4-8.2 :33 CBC W/AUTO DIFF WBC Comments: PATIENT NOT FASTINGPERFORMED BY: [facility] Vaxfzx1998 [facility] [id number] Information: NURSE DRAW (80472) Immature Grans (Abs) 0.0 {x10E3/uL} (Normal) Range: [...] PANEL, COMPREHENSIVE Comments: PATIENT NOT FASTINGPERFORMED BY: [facility]CoEast [facility] HospitalTdhets0401 [facility] [id number] (26632) ALT (SGPT) 41 [iU]/L (Abnormal) Range: 0-32 [...] (Abnormal) Range: 65-99 :09 HgA1C , Office (54161) HgA1C , Office 7.0 % (Normal) Range: 4.6 - 7.1 :14 AFP, Tumor Marker Comments: Is Patient ? N[facility] (refer to report for specific site)refer to report for address and phone number AFP TUMOR 2253 7.7 ng/mL (Normal) Range: 0.0-8.3 Comments: Sipwise ECLIA methodologyPerformed at: [facility] [place] [id number] Director: Omar Hood PhD, Phone: [phone] :14 CBC W/Diff, Automated Comments: [facility] [id number] [place], [place], [id number] ; will review on 05/17 Absolute Lymph [...] :14 Comprehensive Metabolic Profil Comments: [facility] [id number] [place], [place], [id number] GAP 7 (Normal) Range: 5-15 CO2 28.0 [...] criteria. :14 Lipid Profile Comments: [facility] [id number] [place], [place], [id number] VLDL 36 mg/dL (Normal) Range: 5-40 LDL [...] :14 Microalb:Creat Ratio,Random UR Comments: [facility] [id number] [place], [address] ; will review on 05/17 MALB:CREAT 14.6 {mg/g_CRE} (Normal) MICROALBUMIN,UR 23.4 mg/L (Normal) UR CREAT 160.00 mg/dL (Normal) :14 Thyroid Stim Hormone (TSH) Comments: [facility] [address] [place], [address] TSH 1.89 {uIU/mL} (Normal) Range: 0.358-3.74 :14 Vitamin D,25 Hydroxy Comments: [facility] [address] [place], [address] ; will review on 05/17 Vitamin D 25-OH 53.2 ng/mL (Normal) Comments: Vitamin D 25(OH) Status Range Deficiency <20 ng/mL (50nmol/L) Insuffciency 20 - 30 ng/mL (50 - 75 nmol/L) Sufficiency 30 - 100 ng/mL (75 - 250 nmol/L) Toxicity >100 ng/mL (>250 nmol/L) :23 CBC W/Diff, Automated Comments: [facility] [address] [place], [place], [id number] Absolute Lymph 1.65 {X10_3/ul} (Normal) Range: 0.83-4.51 [...] 4.2-5.4 WBC 4.4 K/mm3 (Normal) Range: 4.4-11.0 03-Hcr-42667:23 Comprehensive Metabolic Profil Comments: [facility] [address] [place], [place], [address] GAP 9 (Normal) Range: 5-15 CO2 30.0 [...] 126 mg/dLsuggests DIABETES MELLITUS per A.D.A. criteria. 22-Kqk-799401:07 HgA1C , Office (71360) HgA1C , Office 8.5 % (Abnormal) Range: 4.6 - 7.1 :15 CBC W/Diff, Automated Comments: [facility] [address] [place], [place], [address] Absolute Lymph 1.76 {X10_3/ul} (Normal) Range: 0.83-4.51 [...] 4.2-5.4 WBC 6.7 K/mm3 (Normal) Range: 4.4-11.0 67-Etm-97642:15 Comprehensive Metabolic Profil Comments: [facility] [address] [place], [address] GAP 13 (Normal) Range: 5-15 CO2 23.0 [...] criteria. :15 Lipid Profile Comments: [facility] Mdmcryzcan8866 [facility] [place], [place], [phone] VLDL 45 mg/dL (Abnormal) Range: 5-40 LDL [...] :15 Vitamin D,25 Hydroxy Comments: [facility] Uusleeeeyz0608 [facility] [place], [place], [phone] Vitamin D 25-OH 28.8 ng/mL (Normal) Comments: Vitamin D 25(OH) Status Range Deficiency <20 ng/mL (50nmol/L) Insuffciency 20 - 30 ng/mL (50 - 75 nmol/L) Sufficiency 30 - 100 ng/mL (75 - 250 nmol/L) Toxicity >100 ng/mL (>250 nmol/L); ADDENDA: non-emergent till apt :35 CBC W/Diff, Automated Comments: [facility] [address] [place], [place], [address] Absolute Lymph 1.26 {X10_3/ul} (Normal) Range: 0.83-4.51 [...] :35 Comprehensive Metabolic Profil Comments: [facility] [address] [place], [place], [address] GAP 14 (Normal) Range: 5-15 CO2 26.0 [...] ONLY) See Note (Normal) Comments: [facility] [address] [place], [place], [address] 0 Comments: Patient: IFEOMA ASHRAF : 1965 (50/F) Acct Num: [id number] Phys: Janelle KING,Alejandro Unit Num: [id number] Loc: LABSPEC Specimen: [id number] Received: 01/06/16 - 1129 Spec Ty pe: ASPIRATION TISSUES TISSUES: COMMENT Correlation with clinical, radiologic findings and appropriate follow up are necessary. CYTOLOGY GROSS Received are 10 smears labeled wit h the patient's name and designated per the requisition as fine needle aspiration left thyroid. Submitted for staining. 01/06/16 TC:5 CPT:72135 CYTOLOGY STUDY Slides are reviewed. The spe [...] Signed Toni Yepez 01/07/16 <signature on file> 8-Vqw-822479:29 CBC W/Diff, Auto - EPLAB Comments: At [facility] Outpatient [facility] Medical Oncologypatients receive CBC w/auto Differential ONLY. Physicianwill place an order for a manual differential or Pathologistreview at his discretion. [facility] OUTPATIENT [facility]. [address] [place] [address] [address] MULTIPLE GAMES DEALER: MTAEO CASTANEDA DO PH:[phone] Clinic [facility] [address] [place], [place], [address] Absolute Lymph 1.49 {X10_3/uL} (Normal) Range: 0.83-4.51 [...] 4.2-5.4 WBC 4.6 K/mm3 (Normal) Range: 4.4-11.0 8-Kto-594614:28 Comprehensive Metabolic Profil Comments: Serial Specimen #1, #2 or #3? [facility] Ajcgajdecu07[address] [place], [place], [id number] GAP 8 (Normal) Range: 5-15 CO2 26.0 [...] 126 mg/dLsuggests DIABETES MELLITUS per A.D.A. criteria. 0-Oqf-391625:28 LDH 213 U/L (Normal) Comments: Serial Specimen #1, #2 or #3? [address] [place] [address] [address] [place], [address] Range: 84-246 3-Pcm-282357:28 Magnesium Comments: Serial Specimen #1, #2 or #3? [address] [place] [address] [address] [place], [place], [address](551) MG 1.6 mg/dL (Abnormal) Range: 1.8-2.4 6-Aav-286373:28 Uric Acid Comments: Serial Specimen #1, #2 or #3? [address] [place] [address] [address] [place], [place], [address](160) URIC 4.8 mg/dL (Normal) Range: 2.6-6.0 26-Nov-20159:36 Miscellaneous Lab Procedure Comments: Comments: [id number] URINE TOX,RUN LOWEST TESTTest(s) Ordered: [id number] URINE TOX,RUN LOWEST TESTCleveland Clinic [facility] [address] [place], [place], [address] [facility] Comments: [id number] 6+OXYCODONE-BUND (ng/mL)DRUG RESULT SCREEN CUTOFF____ Amphetamines,Urine Negat LAB (Normal) scott ng/mL 1000Amphetamine test includes Amphetamine and Methamphetamine.Barbiturates Negative ng/mL 200Benzodiazepines Negative ng/mL 200Cannabinoid TEST Negative ng/mL 20Cocaine (Metab) Negative ng/mL 300Opiates Positive ng/mL 300 Opiates test includes Codeine, Morphine, Hydromorphone, [place] codone.Please Note:Confirmation performed by Mass SpectrometryCodeine NegativeMorphine NegativeHydromorphone NegativeHydrocodone Positive Hydrocodone Confirm 1950 ng/mL 300Oxycodone/Oxymorphone,Urine Negative ng/mL 300 Test includes Oxydodone and Oxymorphone. TESTI NG PERFORMED AT [facility]. ORIGINAL REPORT ON FILE IN LAB CONTAINS ADDITIONAL TEST SITE INFORMATION. :36 Urine Drug Screen (VISTA) Comments: Comments: [id number] URINE TOX,RUN LOWEST TESTList of Drugs Taken or Suspected? [facility] Mxdwjwsmvs8607 [place], [place], [id number] ; ordered by Basali THC NEGATIVE (Normal) [...] TESTING MUST BE ORDERED SEPARATELY. USE TESTMNEMONIC: [facility] 30-Bbu-168131:20 HgA1C , Office (56736) HgA1C , Office 7.3 % (Abnormal) Range: 4.6 - 7.1 :13 AFP, Tumor Marker Comments: Is [facility] ? [facility] (refer to report for specific site)refer to report for address and phone number AFP TUMOR 2253 6.4 ng/mL (Normal) Range: 0.0-8.3 Comments: Sipwise ECLIA methodologyPerformed at: [place] [facility] [address] [id number] Director: Omar Hood PhD, Phone: [phone] :[phone] CBC W/Diff, Automated Comments: [facility] [address] [place], [address] Absolute Lymph 1.59 {X10_3/ul} (Normal) [...] :13 Comprehensive Metabolic Profil Comments: [facility] [address] [place], [address] GAP 10 (Normal) Range: 5-15 CO2 24.0 [...] 126 mg/dLsuggests DIABETES MELLITUS per A.D.A. criteria. 15-Tih-69412:13 Lipid Profile Comments: [facility] [address] [place], [id number] ; non-emergent and pt has a f/u [...] :13 Microalb:Creat Ratio,Random UR Comments: [facility] [address] [place], [address] MALB:CREAT 17.0 {mg/g_CRE} (Normal) MICROALBUMIN,UR 43.7 mg/L (Normal) UR CREAT 257.00 mg/dL (Normal) :13 Thyroid Stim Hormone (TSH) Comments: [facility] [address] [place], [address] TSH 1.82 {uIU/mL} (Normal) Range: 0.358-3.74 :13 Vitamin D,25 Hydroxy Comments: [facility] [address] [place], [address] ; will review at 11/10 appt Vitamin D 25-OH 39.8 ng/mL (Normal) Comments: Vitamin D 25(OH) Status Range Deficiency <20 ng/mL (50nmol/L) Insuffciency 20 - 30 ng/mL (50 - 75 nmol/L) Sufficiency 30 - 100 ng/mL (75 - 250 nmol/L) Toxicity >100 ng/mL (>250 nmol/L) :40 CBC W/Diff, Automated Comments: [facility] [address] [place] [place], [address] Absolute Lymph 1.47 {X10_3/ul} (Normal) [...] 4.2-5.4 WBC 4.7 K/mm3 (Normal) Range: 4.4-11.0 33-Ohc-37549:40 Comprehensive Metabolic Profil Comments: [facility] [address] [place], [address] GAP 13 (Normal) Range: 5-15 [...] per A.D.A. criteria. :49 HgA1C , Office (11808) HgA1C , Office 7.8 % (Abnormal) Range: 4.6 - 7.1 :09 CBC W/Diff, Automated Comments: [facility] [address] [place], [place], [address] Absolute Lymph 1.07 {X10_3/ul} (Normal) Range: 0.83-4.51 [...] 4.2-5.4 WBC 5.3 K/mm3 (Normal) Range: 4.4-11.0 46-Nyg-191235:09 Comprehensive Metabolic Profil Comments: [facility] [address] [place], [place], [address] GAP 7 (Normal) Range: 5-15 CO2 28.0 [...] 200 mg/dLsuggests DIABETES MELLITUS per A.D.A. criteria. 3-Abk-120946:42 CBC W/Diff, Automated Comments: At [facility] Outpatient [facility] Medical Oncologypatients receive CBC w/auto Differential ONLY. Physicianwill place an order for a manual differential or Pathologistreview at his discretion. [facility]. [address] [place] [address] [address] MULTIPLE GAMES DEALER: MATEO CASTANEDA DO PH:[phone] performed at:[facility] [address] [place] [address] Absolute Lymph 1.60 {X10_3/ul} (Normal) Range: 0.83-4.51 [...] 4.2-5.4 WBC 7.0 K/mm3 (Normal) Range: 4.4-11.0 9-Vkj-341639:42 Comprehensive Metabolic Profil Comments: Serial Specimen #1, #2 or #3? 1Test performed at:[facility] [address] [place], [place] [address] GAP 9 (Normal) Range: 5-15 CO2 25.0 [...] Comments: Please note revised CREATININE reference range jzsxoitfu59/22/2015. BUN 20 mg/dL (Abnormal) Range: 7-18 GLU 118 mg/dL (Abnormal) Range: 70-110 Comments: Fasting Glucose result from 110 to <126 mg/dLsuggests IMPAIRED HOMEOSTASIS per A.D.A. criteria. :42 LDH 133 U/L (Normal) Comments: Serial Specimen #1, #2 or #3? 1Test performed at:[facility] [address] [place] [address] Range: 84-246 5-Gto-604230:42 Uric Acid Comments: Serial Specimen #1, #2 or #3? 1Test performed at:[facility] L[address]wehbo[address] [facility] [place] [address] URIC 4.6 mg/dL (Normal) Range: 2.6-6.0 :02 CBC W/Diff, Automated Comments: Test performed at:[facility] [address] [place], [place] [address] ; handled by vicki Absolute Lymph 1.23 [...] 4.2-5.4 WBC 4.1 K/mm3 (Abnormal) Range: 4.4-11.0 6-Rsq-954911:02 Comprehensive Metabolic Profil Comments: Test performed at:[facility] [address] [place], [place] [address] GAP 12 (Normal) Range: 5-15 CO2 23.0 [...] Comments: Please note revised CREATININE reference range /22/2015. BUN 11 mg/dL (Normal) Range: 7-18 GLU 214 mg/dL (Abnormal) Range: 70-110 Comments: Glucose result greater than or equal to 200 mg/dLsuggests DIABETES MELLITUS per A.D.A. criteria. :49 VITAMIN B-12 (CYANOCOBALAMIN) Comments: PATIENT NOT FASTINGPERFORMED BY: [facility]6370 [facility] [id number] (19220) Vitamin B12 464 pg/mL (Normal) Range: 211-946 :49 Vitamin D Hydroxy (98121) Comments: PATIENT NOT FASTINGPERFORMED BY: [facility]Co[facility] HospitalVlonir8109 [facility] [id number] Vitamin D, 25-Hydroxy 11.5 ng/mL (Abnormal) Range: 30.0-100.0 Comments: Vitamin D deficiency has been defined by the [place] of[facility] Medical Centercine and an Endocrine Society practice guideline as alevel of serum 25-OH vitamin D less than 20 ng/mL (1,2).The Endocrine Society went on to further define vitamin Dinsufficiency as a level between 21 and 29 ng/mL (2).1. IOM ([place] of Medicine). 2010. Dietary reference intakes for calcium and D. [place]: The National Academies Press.2. Sami MF, Sophie MOORE, Xiomara LARES, et al. Evaluation, treatment, and prevention of vitamin D deficiency: an Endocrine Society clinical practice guideline. JCEM. 2010; 96(7):1911-30. :49 CBC W/AUTO DIFF WBC Comments: PATIENT NOT FASTINGPERFORMED BY: [facility]6370 [facility] [id number] Information: [id number] (70880) Immature Grans (Abs) 0.0 {x10E3/uL} (Normal) Range: [...] 3.77-5.28 WBC 6.1 {x10E3/uL} (Normal) Range: 3.4-10.8 69-Bxw-669589:28 URINE GENESIS CULTURE-NITA COL Comments: PATIENT NOT FASTINGPERFORMED BY: [facility] Qemvne4422 [facility] [id number] Information: SRC:[facility] [id number] COUNT (19396) Antimicrobial MIHEAD (Normal) Comments: S = Susceptible; [...] Imipenem Meropenem Urine Final report (Abnormal) Culture,Comprehensive 00-Vtj-268092:24 Urinalysis, Office (94869) UA - LEUKOCYTE ESTERASE Trace (Normal) UA [...] Bedside Glucose Comments: Test performed at:[facility] [address] [place] [id number] BEDSIDE GLU 129 mg/dL (Abnormal) Range: 70-110 Comments: MANAGEMENT OF PATIENT CARE PER NURSING PROTOCOL 31-Mar-20159:47 Urinalysis, Office (83020) UA - LEUKOCYTE ESTERASE Trace (Normal) UA - NITRITE Negative (Normal) URINE UROBILINGN NITA TIMED 2 mg/dL (Normal) UA - PROTEIN 300 mg/dL (Normal) UA - PH 6.0 (Normal) UA - BLOOD Hemolyzed Large (Normal) UA - SPECIFIC GRAVITY 1.030 (Abnormal) UA - KETONES 15 mg/dL (Abnormal) UA - BILIRUBIN Moderate (Normal) UA - GLUCOSE Negative (Normal) 31-Sbu-102396:57 Basic Metabolic Profile (BMP) Comments: Test performed at:[facility] [address] [place] [address] GAP 11 (Normal) Range: 5-15 CO2 27.0 [...] 126 mg/dLsuggests DIABETES MELLITUS per A.D.A. criteria. 41-Iha-849221:57 Digoxin Level Comments: Test performed at:[facility] [address] [place] [address] DIG 1.17 ng/mL (Normal) Range: 0.80-2.00 65-Aai-430698:57 Hemoglobin A1c Comments: Test performed at:[facility] Is[address] [place] [address] HGB A1C 7.0 % (Abnormal) Range: 4.2-6.3 50-Wkq-967154:57 Thyroid Stim Hormone (TSH) Comments: Test performed at:[facility] [address] [place] [address] TSH 0.89 {uIU/mL} (Normal) Range: 0.358-3.74 4-Zse-823504:17 Urine Culture,Comprehensive Comments: PATIENT NOT FASTINGPERFORMED BY: [facility] Jhyniq0877 [facility] [id number] Information: SRC:[facility] [id number] Result 1 BETAGB (Abnormal) Comments: Beta hemolytic [...] Urine Obtained? CLEAN CATCHTest performed at:[facility] [address] [place] [address] AMORPHOUS 1+ URATE (Normal) MUCUS, URINE [...] W/Diff, Automated Comments: Test performed at:[facility] [address]wtnnrr[address] [place], [place] [id number] Absolute Lymph 1.29 {X10_3/ul} (Normal) Range: 0.83-4.51 [...] Metabolic Profil Comments: Test performed at:[facility] [address]llqjkexs[address] [place], [place] [address] GAP 10 (Normal) Range: 5-15 CO2 26.0 [...] :55 Lipase Comments: Test performed at:[facility] [address] [place] [address] LIPASE 142 U/L (Normal) Range: 70-290 1-Wth-731699:40 HgA1C , Office (09918) HgA1C , Office 7.4 % (Abnormal) Range: 4.6 - 7.1 :03 CBC W/Diff, Automated Comments: Test performed at:[facility] Lvjexiemuj3922 [facility] [place] [address] Absolute Lymph 1.31 {X10_3/ul} (Normal) Range: 0.83-4.51 [...] 4.2-5.4 WBC 5.1 K/mm3 (Normal) Range: 4.4-11.0 38-Uiu-345343:03 Comprehensive Metabolic Profil Comments: Test performed at:[facility] [address] [place] [address] GAP 11 (Normal) Range: 5-15 CO2 26.0 [...] 126 mg/dLsuggests DIABETES MELLITUS per A.D.A. criteria. 47-Zfb-335110:00 Culture, Urine Comments: Test performed at:[facility] [address] [place] [address] CUUR See Note (Normal) Comments: Urine CultureORGANISM 1: Streptococcus agalactiae (B)[place] Count 1000-10,000 Streptococcus agalactiae (B): REACTION Ampicillin $ <=0.25 S Benzylpenicillin NF <=0.06 S Ceftriaxone (other dx) $ <=0.12 S Inducable Clindamycin Resistan - Linezolid $$$$ <=2 S Vancomycin $ 0.5 S(NF) indicates non-formulary drug at [facility]. Approval by Infectious Disease Specialist required before non-formulary drugs may be ordered and/or dispensed. * CLSI guidelines does not recommend testing of cephalosporins. This interpretation is deduced from Beta-lactam/penicillin results.; ADDENDA: handled by edvin 70-Hvo-12843:32 CBC W/Diff, Auto - EPLAB Only Comments: At [facility] Outpatient [facility], [facility] patientsreceive CBC w/auto Differential ONLY. Physician will placean order for a manual differential or Pathologist review athis discretion. [facility]. [address] [place] [address] [address] MULTIPLE GAMES DEALER: MATEO CASTANEDA DO PH:[phone] performed at:[facility] [address]yt[address] [place], [place] [address] ; [facility] Absolute Neut 2.7 {X10_3/uL} (Normal) Range: [...] #2 or #3? 1Test performed at:[facility] [address] [place] [address] Range: 87-241 Comments: ADDENDA: elliott :34 TSH (86525) Comments: PATIENT WAS FASTINGPERFORMED BY: [facility]CarPres[facility] Medical CenterJncwuz0199 [facility] [id number] TSH 1.240 {uIU/mL} (Normal) Range: 0.450-4.500 :34 LIPID PANEL (16143) Comments: PATIENT WAS FASTINGPERFORMED BY: [facility]CarEast Mountain HospitalJgwcdp3624 [facility] [id number] LDL/HDL Ratio 2.6 {ratio_units} (Normal) Range: 0.0-3.2 [...] CREATININE RATIO Comments: PATIENT WAS FASTINGPERFORMED BY: [facility]6370 [facility] [id number]; non- emergent till apt tomorrow (46331) AND (55836) Microalb/Creat Ratio 14.8 {mg/g_creat} (Normal) Range: 0.0-30.0 Microalbumin, Urine 44.5 ug/mL (Abnormal) Range: 0.0-17.0 Creatinine, Urine 301.0 mg/dL (Abnormal) Range: 15.0-278.0 :34 METABOLIC PANEL, Comments: PATIENT WAS FASTINGPERFORMED BY: [facility] Jeqizl3534 [facility] [id number] Information: [id number] COMPREHENSIVE (61264) ALT (SGPT) 21 [iU]/L (Normal) Range: 0-32 [...] Glucose, Serum 161 mg/dL (Abnormal) Range: 65-99 9-Mxp-102701:10 HgA1C , Office (32055) HgA1C , Office 7.2 % (Abnormal) Range: 4.6 - 7.1 :47 CBC W/Diff, Automated Comments: Test performed at:[facility] [address] [place] [address] ; Handled by Vicki Absolute [...] 4.2-5.4 WBC 5.4 K/mm3 (Normal) Range: 4.4-11.0 20-Ahb-131637:47 Comprehensive Metabolic Profil Comments: Test performed at:[facility] [address]pjho[address] [place] [address] GAP 6 (Normal) Range: 5-15 [...] Microscopic Examination Comments: PATIENT NOT FASTINGPERFORMED BY: Datamyne[address] [facility] [id number] Bacteria Few (Normal) Mucus Threads Present (Normal) Epithelial Cells (non renal) 0-10 {/hpf} (Normal) Range: 0 - 10 RBC 0-2 {/hpf} (Normal) Range: 0 - 2 WBC >30 {/hpf} (Abnormal) Range: 0 - 5 :01 Urinalysis, Routine Comments: PATIENT NOT FASTINGPERFORMED BY: [place] ([place])Co Uetnbo66[address] [facility] [id number] Microscopic Examination See below: (Normal) Comments: Microscopic was indicated and was performed. Nitrite, Urine Negative (Normal) Urobilinogen,Semi-Qn 0.2 mg/dL (Normal) Range: 0.0-1.9 Bilirubin Negative (Normal) Occult Blood Negative (Normal) Ketones Trace (Abnormal) Glucose Negative (Normal) Protein 1+ (Abnormal) WBC Esterase 3+ (Abnormal) Appearance Turbid (Abnormal) Urine-Color Yellow (Normal) pH 6.0 (Normal) Range: 5.0-7.5 Specific [place] 1.030 (Normal) Range: 1.005-1.030 :18 CBCD ALC [...] mg/dLsuggests DIABETES MELLITUS per A.D.A. criteria. :01 KSHRH-KIQRXJIMRBB-MLQDU (60716) Comments: PATIENT NOT FASTINGPERFORMED BY: [facility]uAsc[facility] Hospital6370 [facility] [id number] AFP, Serum, Tumor Marker 7.1 ng/mL (Normal) Range: 0.0-8.3 Comments: Khanh ECLIA methodology :01 PTT (Activated Partial Comments: PATIENT NOT FASTINGPERFORMED BY: [facility]6370 [facility] [id number] Thromboplastin Time) (85005) aPTT 25 {sec} (Normal) Range: 24-33 Comments: This test has not been validated for monitoring unfractionated heparintherapy. aPTT-based therapeutic ranges for unfractionated heparintherapy have not been established. For general guidelines onHeparin monitoring, refer to the [facility] Directory of Services. :01 PT (Prothrobim Time) (24576) Comments: PATIENT NOT FASTINGPERFORMED BY: [facility]6370 [facility] [id number] Prothrombin Time 10.4 {sec} (Normal) Range: 9.1-12.0 INR 1.0 (Normal) Range: 0.8-1.2 Comments: Reference interval is for non-anticoagulated patients. . Suggested INR therapeutic range for Vitamin K anta gonist therapy: Standard Dose (moderate intensity therapeutic range): 2.0 - 3.0 Higher intensity therapeutic range 2.5 - 3.5 :01 TSH (72796) Comments: PATIENT NOT FASTINGPERFORMED BY: [facility]uAsc[facility]6370 [facility] [id number] TSH 1.450 {uIU/mL} (Normal) Range: 0.450-4.500 :01 CBC W/AUTO DIFF WBC Comments: PATIENT NOT FASTINGPERFORMED BY: [facility]onduuAsc[facility] Hospital6370 [facility] [id number] Information: [id number] (94557) Immature Grans (Abs) 0.0 {x10E3/uL} (Normal) Range: [...] CREATININE RATIO Comments: PATIENT NOT FASTINGPERFORMED BY: AdverCarEast Mountain HospitalIjzfzx0154 [facility] [id number] (45028) AND (25079) Microalb/Creat Ratio 26.4 {mg/g_creat} (Normal) Range: 0.0-30.0 Microalbumin, Urine 96.0 ug/mL (Abnormal) Range: 0.0-17.0 Creatinine, Urine 364.2 mg/dL (Abnormal) Range: 15.0-278.0 :01 METABOLIC PANEL, COMPREHENSIVE Comments: PATIENT NOT FASTINGPERFORMED BY: AdverCarPresbyterian Santa Fe Medical CenterFxqxph0012 [facility] [id number] (05564) ALT (SGPT) 19 [iU]/L (Normal) Range: 0-32 [...] mg/dL (Abnormal) Range: 65-99 :01 LIPID PANEL (21523) Comments: PATIENT NOT FASTINGPERFORMED BY: [facility]Co[facility] Mountain HospitalDeayfg9601 [facility] [id number] LDL/HDL Ratio 2.1 {ratio_units} (Normal) Range: 0.0-3.2 [...] (Normal) Range: 100-199 :19 HgA1C , Office (95950) HgA1C , Office 6.3 % (Normal) Range: [...] & Aerobic Comments: PATIENT NOT FASTINGPERFORMED BY: Superbac6370 [facility] [id number] Information: SRC:WND [id number] RIGHT EYE Culture (65816) Antimicrobial MIHEAD (Normal) Comments: S = Susceptible; [...] hours. Anaerobic Culture Final report (Normal) :57 [id number] (59511) Comments: PATIENT WAS FASTINGPERFORMED BY: Superbac6370 [facility] [id number] AFP, Serum, Tumor Marker 9.2 ng/mL (Abnormal) Range: 0.0-8.3 Comments: Khanh ECLIA methodology :57 PTT (Activated Partial Comments: PATIENT WAS FASTINGPERFORMED BY: [facility] Systemslin6370 [facility] [id number] Thromboplastin Time) (90080) aPTT 26 {sec} (Normal) Range: 24-33 Comments: This test has not been validated for monitoring unfractionated heparintherapy. aPTT-based therapeutic ranges for unfractionated heparintherapy have not been established. For general guidelines onHeparin monitoring, refer to the [facility] Directory of Services. :57 PT (Prothrobim Time) (10825) Comments: PATIENT WAS FASTINGPERFORMED BY: [facility]6370 [facility] [id number] Prothrombin Time 10.5 {sec} (Normal) Range: 9.1-12.0 INR 1.0 (Normal) Range: 0.8-1.2 Comments: Reference interval is for non-anticoagulated patients. . Suggested INR therapeutic range for Vitamin K anta gonist therapy: Standard Dose (moderate intensity therapeutic range): 2.0 - 3.0 Higher intensity therapeutic range 2.5 - 3.5 :57 TSH (70263) Comments: PATIENT WAS FASTINGPERFORMED BY: [facility]6370 [facility] [id number] TSH 3.200 {uIU/mL} (Normal) Range: 0.450-4.500 :57 CBC WITH MANUAL DIFF Comments: PATIENT WAS FASTINGPERFORMED BY: [address] [id number] Information: [id number] (92063) Immature Grans (Abs) 0.0 {x10E3/uL} (Normal) Range: [...] PANEL, COMPREHENSIVE Comments: PATIENT WAS FASTINGPERFORMED BY: [facility]Xbhksc0132 [facility] [id number] (02431) ALT (SGPT) 15 [iU]/L (Normal) Range: 0-32 [...] (Abnormal) Range: 65-99 :29 HgA1C , Office (59837) HgA1C , Office 5.4 % (Normal) Range: [...] CHOL 150 mg/dL (Normal) Comments: <200 mg/dL Rjmelyuyg133-832 mg/dL Borderline>240 mg/dL High Risk :50 HgA1C , Office (91369) HgA1C , Office 5.8 % (Normal) Range: [...] [facility]. Approximately 10% of breast cancers are not detected by mammography. Anormal mammogram should not delay biopsy of a clinically suspiciousabnormality. Signed:Mele Santiago [facility] 2012 at 9:19:01 AM [phone] Signed GP/GP If you are the referring physician and would like to consult with theradiologist who provided this interpretation, please herbie Bonilla M.D. at [phone]. If this radiologist is unavailable, youwill be directed to another radiologist to assist. If you are a patient with a question regarding this report, pleaseco ntactyour referring physician directly. Professional Interpretation Provided By: [email or web address], Phone , These documents contain legally protected [...] on 06/15/13920 Sign by: Prashant Delgadillo MD 10-Wma-24209:27 THYROID Radiology Report See Note Comments: STUDY: [...] Delgadillo M.D.June 15, 2013 at 2:56:26 PM [phone] Signed GP/GP If you are the referring physician and would like to consult with theradiologist who provided this interpretation, please contact Sarmad Bonilla at [phone]. If this radiologist is unavailable, youwill be directed to another radiologist to assist. If you are a patient with a question regarding this report, pleasecontactyour referring physician directly. Profes sional Interpretation Provided By: [email or web address], Phone , These documents contain legally protected [...] documents. Dictated on 06/15/13 1456 by Maryellen Delgaidllo MDscribed on 1732 by ITS IMPORTSign by Prashant Delgadillo MD on 06/15/13 1733 Sign by: Prashant Delgadillo MD 1-Zei-651772:18 URINE GENESIS CULTURE-NITA COL Comments: PATIENT NOT FASTINGPERFORMED BY: [facility]6370 [facility] [id number] Information: SRC:UR F25854 COUNT (84911) Antimicrobial MIHEAD (Normal) Comments: S = Susceptible; [...] primarily for treating urinary tract infections. (CLSI, M149-G16,2009) Urine Culture,Comprehensive Final report (Normal) 04-Jun-20138:48 Urinalysis, Office (69498) UA - LEUKOCYTE ESTERASE Large (Normal) UA - NITRITE Positive (Normal) URINE UROBILINGN NITA TIMED 2 mg/dL (Normal) UA - PROTEIN Negative mg/dL (Normal) UA - BLOOD Negative (Normal) UA - KETONES Moderate mg/dL (Normal) UA - BILIRUBIN Moderate (Normal) UA - GLUCOSE Small mg/dL (Normal) 81-Wnw-94338:06 MICROALBUMIN: CREATININE RATIO Comments: PATIENT WAS FASTINGPERFORMED BY: Super[employer]ac6370 [facility] [id number] (36080) AND (36159) Microalb/Creat Ratio 27.4 {mg/g_creat} (Normal) Range: 0.0-30.0 Microalbumin, Urine 85.2 ug/mL (Abnormal) Range: 0.0-17.0 Creatinine, Urine 311.1 mg/dL (Abnormal) Range: 15.0-278.0 :06 METABOLIC PANEL, Comments: PATIENT WAS FASTINGPERFORMED BY: [employer]70 [facility] [id number] Information: ADD [id number] AND DRAW FEE 99 2138 COMPREHENSIVE (70882) ALT (SGPT) 29 [iU]/L (Normal) Range: 0-32 [...] 76 mg/dL (Normal) Range: 65-99 :06 TSH (00493) Comments: PATIENT WAS FASTINGPERFORMED BY: [address] [id number] TSH 3.040 {uIU/mL} (Normal) Range: 0.450-4.500 :06 LIPID PANEL (84996) Comments: PATIENT WAS FASTINGPERFORMED BY: [address] [id number] LDL/HDL Ratio 2.4 {ratio_units} (Normal) Range: 0.0-3.2 HDL Cholesterol 55 mg/dL (Normal) Comments: According to ATP-III Guidelines, HDL-C >59 mg/dL is considered anegative risk factor for CHD. LDL Cholesterol Calc 134 mg/dL (Abnormal) Range: 0-99 VLDL Cholesterol Ramandeep 18 mg/dL (Normal) Range: 5-40 Cholesterol, Total 207 mg/dL (Abnormal) Range: 100-199 Triglycerides 89 mg/dL (Normal) Range: 0-149 :06 NJZNG-FOESOJWNJPX-NHCJP (74742) Comments: PATIENT WAS FASTINGPERFORMED BY: [facility] [id number] AFP, Serum, Tumor Marker 5.4 ng/mL (Normal) Range: 0.0-8.3 Comments: Khanh ECLIA methodology :06 PTT (Activated Partial Comments: PATIENT WAS FASTINGPERFORMED BY: [address] [id number] Thromboplastin Time) (17019) aPTT 27 {sec} (Normal) Range: 24-33 Comments: This test has not been validated for monitoring unfractionated heparintherapy. aPTT-based therapeutic ranges for unfractionated heparintherapy have not been established. For general guidelines onHeparin monitoring, refer to the [facility] Directory of Services. :06 PT (Prothrobim Time) (49076) Comments: PATIENT WAS FASTINGPERFORMED BY: [facility] Knqqxy5632 [facility] [place] [id number] INR 1.1 (Normal) Range: 0.8-1.2 Comments: Reference interval is for non-anticoagulated patients. . Suggested INR therapeutic range for Vitamin K anta gonist therapy: Standard Dose (moderate intensity therapeutic range): 2.0 - 3.0 Higher intensity therapeutic range 2.5 - 3.5 Prothrombin Time 11.0 {sec} (Normal) Range: 9.1-12.0 :51 HgA1C , Office (46366) HgA1C , Office 5.0 % (Normal) Range: [...] mg/dL (Normal) Range: 70-110 :03 Rapid Flu (33310 x 2) Influenza A Ag positive b (Normal) :27 METABOLIC PANEL, COMPREHENSIVE Comments: PATIENT WAS FASTINGPERFORMED BY: [facility] HospitalHribts7608 [facility] [id number] (70258) ALT (SGPT) 25 [iU]/L (Normal) Range: 0-32 [...] Glucose, Serum 82 mg/dL (Normal) Range: 65-99 86-Dbc-71738:27 LIPID PANEL (16342) Comments: PATIENT WAS FASTINGPERFORMED BY: [employer] [facility] [id number] LDL/HDL Ratio 0.9 {ratio_units} (Normal) Range: 0.0-3.2 LDL Cholesterol Calc 29 mg/dL (Normal) Range: 0-99 VLDL Cholesterol Ramandeep 17 mg/dL (Normal) Range: 5-40 HDL Cholesterol 32 mg/dL (Abnormal) Comments: According to ATP-III Guidelines, HDL-C >59 mg/dL is considered anegative risk factor for CHD. Cholesterol, Total 78 mg/dL (Abnormal) Range: 100-199 Triglycerides 84 mg/dL (Normal) Range: 0-149 48-Uqi-17687:27 TSH (86948) Comments: PATIENT WAS FASTINGPERFORMED BY: Superbac6370 [facility] [id number] TSH 3.990 {uIU/mL} (Normal) Range: 0.450-4.500 89-Rkm-12855:27 CBC WITH MANUAL DIFF Comments: PATIENT WAS FASTINGPERFORMED BY: [employer] Bllusv[address] [facility] [id number] Information: [id number] (37619) Immature Grans (Abs) 0.0 {x10E3/uL} Range: 0.0-0.1 [...] 0.0-8.3 9:39 Comments: Khanh ECLIA methodologyPerformed at: [facility] LabCoJulie [place] [id number] [place], [place] [id number] Director: Manuelito Mendez PhD, Phone: [phone] :[phone] CBCMD ANC 2.4 3/uL (Normal) Range: [...] CHOL 130 mg/dL (Normal) Comments: <200 mg/dL Rhxgkeotr512-917 mg/dL Borderline>240 mg/dL High Risk :39 MIACRE tMICROCREAT 16.5 {mg/g_CRE} (Normal) MIALB 23.3 mg/L (Normal) CREU 141.0 mg/dL (Normal) :39 PT INR 1.1 (Normal) PTP 13.6 s (Normal) Range: 11.9-14.4 :39 PTT PTTP 29.5 s (Normal) Range: 24.1-36.2 :17 Rapid Flu (61214 x 2) Influenza A Ag neg (Normal) :29 HgA1C , Office (05582) HgA1C , Office 5.9 % (Normal) Range: 4.6 - 7.1 :53 FT3 2.9 pg/mL (Normal) Range: 2.18-3.98 :53 T4F 1.26 ng/dL (Normal) Range: 0.76-1.46 :53 TPO 8 {IU/mL} (Normal) Range: 0-34 Comments: Performed at: [facility] [address] [id number] Director: Codi Robles MD, Phone: [phone] :[phone] TSH 1.23 {uIU/mL} (Normal) Range: 0.358-3.74 :04 HgA1C , Office (05688) HgA1C , Office 5.8 % (Normal) Range: 4.6 - 7.1 :26 CBCMD Comments: ORDERED TSH LIPID CMP CBCMD [facility] ORDERED VITD CMP CBCD RBCM NORM [...] CMP Comments: ORDERED TSH LIPID CMP CBCMD [facility] ORDERED VITD CMP CBCD GAP 8 [...] :26 LIPID Comments: ORDERED TSH LIPID CMP [facility] ORDERED VITD CMP CBCD VLDL 21 mg/dL [...] D deficiency has been defined by the [place] ofMedicine and an Endocrine Society practice guideline as alevel of serum 25-OH vitamin D less than 20 ng/mL (1,2).The Endocrine Society went on to further define vitamin Dinsufficiency as a level between 21 and 29 ng/mL (2).1. IOM ([place] of Medicine). 2010. Dietary reference intakes for calcium and D. [place]: The National Academies Press.2. Sami MF, Sophie MOORE, Xiomara LARES, et al. Evaluation, treatment, and prevention of vitamin D deficiency: an Endocrine Society clinical practice guideline. JCEM. 2010; 96(7): 1911-30.Performed at: [address] [id number] Director: Codi Robles MD, Phone: [phone] 27-Jan-20128:02 BILAT SCRN DIGITAL & CAD Radiology [...] GP/GP Professional Interpretat ion Provided By: [facility], , To consult with a radiologist regarding this report, please call our [id number] line @ Dicta dani on 01/27/12 0813 by Faustian KING,GabrieleTranscribed on 01/27/12 0950 by ITS IMPORTSign by Faustina KING,Prashant on 01/27/12 0951 Sign by: Prashant Delgadillo MD 59-Mpx-666657:24 HgA1C , Office (91903) HgA1C , Office 5.7 % (Normal) Range: 4.6 - 7.1 05-Euv-695169:24 Blood Glucose , Office (67296) Blood Glucose , Office 89 (Normal) 42-Hlv-330861:31 Urinalysis, Office (73469) UA - LEUKOCYTE ESTERASE Small (Normal) UA - NITRITE Positive (Normal) URINE UROBILINGN NITA TIMED Normal mg/dL (Normal) UA - PROTEIN 300 mg/dL (Normal) UA - PH 6.0 (Normal) UA - SPECIFIC GRAVITY 1.025 (Normal) UA - KETONES Small mg/dL (Normal) UA - BILIRUBIN Moderate (Normal) UA - GLUCOSE Negative (Normal) 04-Oct-20119:15 HgA1C , Office (49474) HgA1C , Office 6.8 % (Normal) Range: 4.6 - 7.1 :15 Blood Glucose , Office (45927) Blood Glucose , Office 162 (Normal) 42-Nia-854124:22 THYROID Radiology Report See Note (Normal) Comments: [...] 09/08/11 1330 Sign by: Prashant Delgadillo MD 72-Oyd-62120:59 COMP METABOLIC GAP 9 (Normal) Range: 5-15 [...] COL Comments: PATIENT NOT FASTINGPERFORMED BY: [facility] Lgfxlc6305 [facility] [id number] Information: SRC:UR F11449 COUNT (90198) Antimicrobial MIHEAD (Normal) Comments: S = Susceptible; [...] pneumoniae (Normal) Urine Final report Culture,Comprehensive (Normal) 46-Mns-80643:32 Urinalysis, Office (61874) UA - LEUKOCYTE ESTERASE Moderate (Normal) URINE UROBILINGN NITA TIMED Normal mg/dL (Normal) UA - PROTEIN 100 mg/dL (Normal) UA - PH 6.0 (Normal) UA - BLOOD Hemolyzed Large (Normal) UA - SPECIFIC GRAVITY 1.025 (Normal) UA - KETONES Negative mg/dL (Normal) UA - BILIRUBIN Negative (Normal) UA - GLUCOSE Negative (Normal) :28 Blood Glucose , Office (63173) Blood Glucose , Office 223 (Normal) :10 Urinalysis, Office (20157) UA - BILIRUBIN Small (Normal) UA - BLOOD Hemolyzed Large (Normal) UA - GLUCOSE Small (Normal) Comments: 100 UA - KETONES Negative mg/dL (Normal) UA - LEUKOCYTE ESTERASE Trace (Normal) UA - NITRITE Positive (Normal) UA - PH 5.0 (Normal) UA - PROTEIN 300 mg/dL (Normal) UA - SPECIFIC GRAVITY 1.020 (Normal) URINE UROBILINGN NITA TIMED 2 mg/dL (Normal) 0-Brw-747765:29 URINE GENESIS CULTURE-NITA COL Comments: PATIENT NOT FASTINGPERFORMED BY: [facility] Edsaet4898 [facility] [id number] Information: SRC:UR G41946 COUNT (54550) Antimicrobial MIHEAD (Normal) Comments: S = Susceptible; [...] mL (Normal) Urine Final report (Normal) Culture,Comprehensive 7-Lqh-636436:31 Urinalysis, Office (75545) UA - BILIRUBIN Large (Normal) UA - [...] (Abnormal) Range: 0.358-3.74 :28 HgA1C , Office (86620) HgA1C , Office 8.3 % (Abnormal) Range: 4.6 - 7.1 :28 Blood Glucose , Office (67296) Blood Glucose , Office 176 (Normal) :24 [...] 200-240 mg/dL Borderline >240 mg/dL High Risk 34-Yew-471784:54 BRAIN/HEAD W/WO CONTRAST Radiology See Note Comments: [...] Prashant Delgadillo MD :44 HgA1C , Office (63191) HgA1C , Office 7.4 % (Abnormal) Range: 4.6 - 7.1 :44 Blood Glucose , Office (72671) Blood Glucose , Office 206 (Normal) :37 [...] Report See Note (Normal) Comments: Exam Number: [id number] AMMOGRAPHY - BILATERAL SCREENING INDICATION:Routine annual screening [...] attaching a ResultCode to this exam. ADDENDUM: [id number] HPBI/MDS Reported By: PRASHANT DELGADILLO :14 HgA1C , Office (16408) HgA1C , Office 7.0 % (Normal) Range: 4.6 - 7.1 :14 Blood Glucose , Office (27452) Blood Glucose , Office 164 (Normal) :30 LASHA DIR SEMI-QL LASHA DIRECT 24 AU/mL (Normal) :30 ANTI-dsDNA AB 10 {IU/mL} (Normal) :30 TSH 6.39 {uIU/mL} (Abnormal) Range: 0.358-3.74 51-Hfk-592997:35 C-REACTIVE PROTEIN (37069) Comments: PATIENT NOT FASTINGPERFORMED BY: [facility] [id number] C-Reactive Protein, Quant 6.5 mg/L (Abnormal) Range: 0.0-4.9 51-Khb-913210:35 SED RATE ERYTHROCYTE (80402) Comments: PATIENT NOT FASTINGPERFORMED BY: [facility]6[address] [facility] [id number] Sedimentation Rate-Westergren 14 mm/h (Normal) Range: 0-20 52-Ugp-580491:35 RHEUMATOID FACTOR-QUANT (26766) Comments: PATIENT NOT FASTINGPERFORMED BY: [place] [address] [facility] [id number] RA Latex Turbid. 7.6 {IU/mL} (Normal) Range: 0.0-13.9 26-Zmp-617867:35 LASHA (ANTINUCLEAR ANTIBODY) Comments: PATIENT NOT FASTINGPERFORMED BY: [place] [address] [facility] [id number] (36058) LASHA Direct Positive (Abnormal) 22-Qxi-431222:35 T3, FREE (TRIDOTHYRONINE) (61622) Comments: PATIENT NOT FASTINGPERFORMED BY: [place] [address] [facility] [id number] Triiodothyronine,Free,Serum 2.8 pg/mL (Normal) Range: 2.0-4.4 50-Bpu-038346:35 T4, FREE (THYROXINE) (34789) Comments: PATIENT NOT FASTINGPERFORMED BY: [facility]6[address] [facility] [id number] T4,Free(Direct) 0.76 ng/dL (Abnormal) Range: 0.82-1.77 52-Zlo-602704:35 Anti-TPO Antibody (86822) Comments: PATIENT NOT FASTINGPERFORMED BY: [facility]6[address] [facility] [id number] Thyroid Peroxidase (TPO) Ab <6 {IU/mL} (Normal) Range: 0-34 26-Uvx-322025:35 TSH (90566) Comments: PATIENT NOT FASTINGPERFORMED BY: [facility]6[address] [facility] [id number] TSH 5.630 {uIU/mL} (Abnormal) Range: 0.450-4.500 Comments: Please note reference interval change 97-Swe-577372:35 METABOLIC PANEL, Comments: PATIENT NOT FASTINGPERFORMED BY: [facility] [id number] Information: [id number] COMPREHENSIVE (44167) ALT (SGPT) 55 [iU]/L (Abnormal) Range: 0-40 [...] Glucose, Serum 151 mg/dL (Abnormal) Range: 65-99 22-Rff-760632:02 GENESIS CULTURE-OTHER (68443) Comments: PATIENT NOT FASTINGPERFORMED BY: REINALDO [facility] Yrdwoy6611 [address] [place] [id number] Information: SRC:THRT N82132 Result 1 Yeast isolated. (Normal) Comments: Moderate growthRequest for further identification must be madewithin 1 week. Upper Respiratory Culture Final report (Normal) 15-Zpr-88645:37 Rapid Strep Test, Office (49362) Rapid Strep Test, Office Negative (Normal) 73-Giw-905674:11 THYROID (HP) Radiology Report See Note (Normal) Comments: Exam Number: [id number] CLINICAL:This is a 45-year-old female patient with [...] CHOL 147 mg/dL (Normal) Comments: <200 mg/dL Rqwsztdxi784-499 mg/dL Borderline>240 mg/dL High Risk HDL 32 [...] :41 TSH 4.85 {uIU/mL} (Abnormal) Range: 0.358-3.74 13-Saq-348915:50 URINE GENESIS CULTURE-NITA COL Comments: PATIENT NOT FASTINGPERFORMED BY: REINALDO [facility] I[address]dol[address] [facility] [id number] Information: SRC:INGRID VALE H66689 COUNT (76918) Result 1 Klebsiella pneumoniae Comments: 1,000 Colonies/mL [...] STrimethoprim/Sulfa S Urine Final report (Normal) Culture,Comprehensive 20-Uvh-55406:55 Urinalysis, Office (39502) UA - LEUKOCYTE ESTERASE Small (Normal) UA - NITRITE Negative (Normal) URINE UROBILINGN NITA TIMED Normal mg/dL (Normal) UA - PROTEIN 30 mg/dL (Normal) UA - PH 6.0 (Normal) UA - BLOOD Negative (Normal) UA - SPECIFIC GRAVITY 1.020 (Normal) UA - KETONES Negative mg/dL (Normal) UA - BILIRUBIN Negative (Normal) UA - GLUCOSE Negative (Normal) 5-Vsg-117356:37 PET/CT,TUMOR,BASE-THIGH,SUBS Radiology Report See Note (Normal) Comments: Exam Number: [id number] EXAM: Body PET study Head to Mid [...] 44:398P, 2003). w Reported By: ADELA MOLINA 6-Xnk-993399:00 PRANEETH+ELPU24 3467 ALBUMIN,U 37.7 % (Normal) UGZIA-5-UILN,U 3.2 % (Normal) LDDBM-6-KWGD,U 7.6 % (Normal) BETA GLOB,U 23.1 % (Normal) GAMMA GLOB,U 28.5 % (Normal) PRANEETH RESULT,U Comment (Normal) Comments: No monoclonality detected. M-SPIKE,UR% SeeNote % (Normal) Comments: Result: Not Observed PROTEIN, U24 62.1 {mg/24_hr} Range: 30.0-150.0 (Normal) PROTEIN,UR 2.3 mg/dL (Normal) Range: 0.0-15.0 2-Hkr-091243:15 C-REACTIVE PROT < 2.90 mg/L (Normal) Range: [...] <126 mg/dLsuggests IMPAIRED HOMEOSTASIS per A.D.A. criteria. 8-Cvt-770255:15 ESR SED RATE 11 mm/h (Normal) Range: 0-20 9-Mnp-964972:15 LDH 197 U/L (Abnormal) Range: 100-190 9-Izi-540665:15 LIPID HDL 30 mg/dL (Abnormal) Comments: Reference [...] CHOL 154 mg/dL (Normal) Comments: <200 mg/dL Wyeoetcmr515-280 mg/dL Borderline>240 mg/dL High Risk 6-Bus-268608:15 PROT.[id number] NOTE Comment (Normal) Comments: Protein electrophoresis scan will follow via computer,mail, or immigration manager delivery.Performed at: [address] [id number] Director: Kamlesh Arana MD ALBUMIN,UR 54.2 % (Normal) KGFIZ-2-SFOQ,U 1.2 % (Normal) THVHC-0-LZBY,U 9.4 % (Normal) BETA GLOB,U 23.4 % (Normal) GAMMA GLOB,U 11.8 % (Normal) M-SPIKE,U SeeNote % (Normal) Comments: Result: Not Observed PROTEIN,UR 13.6 mg/dL (Normal) Range: 0.0-15.0 3-Sch-709539:15 SPE 699385 A/G RATIO 1.8 (Normal) Range: 0.7-2.0 GLOBULIN, [...] electrophoresis scan will follow via computer,mail, or immigration manager delivery. M-SPIKE SeeNote g/dL (Normal) Comments: Result: Not Observed GAMMA GLOBULIN 0.4 g/dL (Abnormal) Range: 0.5-1.6 ALBUMIN 3.9 g/dL (Normal) Range: 3.2-5.6 ALPHA-1 GLOBUL 0.2 g/dL (Normal) Range: 0.1-0.4 ALPHA-2 GLOBUL 0.7 g/dL (Normal) Range: 0.4-1.2 BETA GLOBULIN 0.9 g/dL (Normal) Range: 0.6-1.3 PROTEIN,TOTAL 6.1 g/dL (Normal) Range: 6.0-8.5 82-Uhp-586243:28 BRAIN/HEAD WITHOUT CONTRAST Radiology Report See Note (Normal) Comments: Exam Number: [id number] CT SCAN OF BRAIN HISTORYLytic lesion, lymphoma. Scans were obtained at 2.5-mm intervals through the posterior fossaand 5-mm intervals through the remainder of the brai n. The [facility] entstudy is compared to the examination of [...] for confirmation. Reported By: TRUE NAGEL M.D. 80-Dns-823001:23 SPINE,CERVICAL WITHOUT CONTRAS Radiology Report See Note (Normal) Comments: Exam Number: [id number] CLINICAL:44 year old female with cervical radiculopathy. [...] tumor involvement. Reported By: SHARYN JASMINE M.D. 95-Meg-976753:50 Blood Glucose , Office (35685) Blood Glucose , Office 105 (Normal) 82-Bvy-950376:50 HgA1C , Office (54526) HgA1C , Office 6.1 % (Normal) Range: 4.6 - 7.1 96-Yft-161732:24 URINE GENESIS CULTURE-NITA COL Comments: PATIENT NOT FASTINGPERFORMED BY: [facility] CenterDqgbfn2976 [facility] [id number] Information: SRC:UR Y28306 COUNT (21408) Antimicrobial MIHEAD (Normal) Comments: S = Susceptible; [...] mL (Normal) Urine Final report (Normal) Culture,Comprehensive 17-Uuf-109222:41 Urinalysis, Office (65295) UA - LEUKOCYTE ESTERASE Large (Normal) UA - NITRITE Negative (Normal) URINE UROBILINGN NITA TIMED Normal mg/dL (Normal) UA - PROTEIN 100 mg/dL (Normal) UA - PH 5.0 (Normal) UA - BLOOD Hemolyzed Large (Normal) UA - SPECIFIC GRAVITY 1.025 (Normal) UA - KETONES Negative mg/dL (Normal) UA - BILIRUBIN Negative (Normal) UA - GLUCOSE Negative (Normal) 2-Bgl-118850:19 BLOOD GAS, O2 SAT ONLY - INITL Radiology Report See Note (Normal) Comments: Exam Number: [id number] Procedure completed. Please see MEDICAL RECORDS reports in PCI - OP - OP NOTE LET - LETTER. Reported By: BOONE CH M.D. 6-Isp-367225:19 BLOOD GAS, O2 SAT ONLY - SUBSQ Radiology Report See Note (Normal) Comments: Exam Number: [id number] Procedure completed. Please see MEDICAL RECORDS reports in PCI - OP - OP NOTE LET - LETTER. Reported By: BOONE CH M.D. 3-Qnu-317625:19 BLOOD GAS, O2 SAT ONLY - SUBSQ Radiology Report See Note (Normal) Comments: Exam Number: [id number] Procedure completed. Please see MEDICAL RECORDS reports in PCI - OP - OP NOTE LET - LETTER. Reported By: BOONE CH M.D. 04-Aug-20096:45 RHC/LHC/CORS/LV Radiology Report See Note (Normal) Comments: Exam Number: [id number] Procedure completed. Please see MEDICAL RECORDS reports [...] MIXED GRAM POSITIVE ORGANISMS :58 Urinalysis, Office (23904) UA - BILIRUBIN Negative (Normal) UA - BLOOD Negative (Normal) UA - GLUCOSE Negative (Normal) UA - KETONES Negative mg/dL (Normal) UA - LEUKOCYTE ESTERASE Small (Normal) Comments: aw UA - NITRITE Negative (Normal) UA - PH 6.0 (Normal) UA - PROTEIN Negative mg/dL (Normal) UA - SPECIFIC GRAVITY 1.010 (Normal) URINE UROBILINGN NITA TIMED Normal mg/dL (Normal) :53 HgA1C , Office (42847) HgA1C , Office 5.7 % (Normal) Range: 4.6 - 7.1 :53 Blood Glucose , Office (24814) Blood Glucose , Office 133 (Normal) :24 [...] (Normal) Range: 6.4-8.2 :53 HgA1C , Office (25804) HgA1C , Office 10.0 % (Abnormal) Range: 4.6 - 7.1 :53 Blood Glucose , Office (09311) Blood Glucose , Office 410 (Normal) :46 [...] 11.6-14.6 WBC 4.0 K/mm3 (Abnormal) Range: 4.4-11.0 8-Rww-370766:46 COMP METABOLIC A/G 1.2 {RATIO} (Normal) Range: [...] mg/L (Normal) UR CREAT 186.7 mg/dL (Normal) 89-Afr-928305:11 LIPID Comments: PATIENT NOT FASTING/DEMANDED TO BE [...] mg/dL VLDL 31 mg/dL (Normal) Range: 40 17-Hej-139350:11 LIVER Comments: PATIENT NOT FASTING/DEMANDED TO BE DRAWN ALT 43 U/L (Normal) Range: 30-65 D BILI 0.07 mg/dL (Normal) Range: 0.00-0.30 T BILI 0.35 mg/dL (Normal) Range: 0.00-1.00 ALB 3.4 g/dL (Normal) Range: 3.4-5.0 ALK P 210 U/L (Abnormal) Range: 50-136 AST 27 U/L (Normal) Range: 15-37 T PROT 6.4 g/dL (Normal) Range: 6.4-8.2 06-Pce-792230:23 Urinalysis, Office (71758) Comments: done BC UA - BILIRUBIN Negative (Normal) UA - BLOOD Hemolyzed Large (Normal) UA - GLUCOSE Large (Normal) Comments: > 1000mg/dL UA - KETONES Negative mg/dL (Normal) UA - LEUKOCYTE ESTERASE Moderate (Normal) UA - NITRITE Negative (Normal) UA - PH 6.0 (Normal) UA - PROTEIN 30 mg/dL (Normal) UA - SPECIFIC GRAVITY 1.010 (Normal) URINE UROBILINGN NITA TIMED Normal mg/dL (Normal) 36-Sob-247045:44 MYOCARD PERF SPECT REST/STRESS Radiology Report See Note (Normal) Comments: Exam Number: [id number] MYOCARDIAL PERFUSION SCAN TECHNIQUEThe patient was injected [...] of 37%. Reported By: NOE MORRIS M.D. 67-Kai-57782:39 SPINE, LUMBAR W/W/O CONTRAST Radiology Report See Note (Normal) Comments: Exam Number: [id number] MAGNETIC RESONANCE IMAGING OF THE LUMBAR SPINE [...] other abnormality. Reported By: SUSAN GOMEZ M.D. [id number] CULTURE, URINE URINE CULTURE See Note {CFU/mL} (Normal) Comments: COLONY COUNT 25,000-50,000 ORGANISM 1: MIXED GRAM POSITIVE ORGANISMS 27-Sns-[id number]:15 Urinalysis, Office (39029) UA - LEUKOCYTE ESTERASE Small (Normal) Comments: aw UA - NITRITE Negative (Normal) UA - PH 5.0 (Normal) UA - PROTEIN Negative mg/dL (Normal) URINE UROBILINGN NITA TIMED Normal mg/dL (Normal) UA - BILIRUBIN Negative (Normal) UA - BLOOD Negative (Normal) UA - GLUCOSE Negative (Normal) UA - KETONES Negative mg/dL (Normal) UA - SPECIFIC GRAVITY 1.025 (Normal) 50-Ggl-250237:09 Blood Glucose , Office (34548) Blood Glucose , Office 231 (Normal) 80-Can-176931:09 HgA1C , Office (28162) HgA1C , Office 7.1 % (Normal) Range: [...] for patient's is the eGFRmultiplied by 1.212. [facility] Laboratory uses the abbreviated Modification of [...] Disease W/O Kidney Disease>/= 90 Stage One [id number] - 89 Stage Two Suspect Decreased GFR30 [...] mg/dL VLDL 36 mg/dL (Normal) Range: 5-40 72-Ufz-252374:42 MICROALB:CRE UR MALB:CREAT 35.4 {mg/g_CRE} (Abnormal) MICROALBUMIN,UR 54.7 mg/L (Normal) UR CREAT 154.6 mg/dL (Normal) 27-Qea-570642:42 TSH 2.57 {uIU/mL} (Normal) Range: 0.34-4.82 64-Nkd-851666:40 CULTURE, URINE URINE CULTURE See Note {CFU/mL} (Normal) Comments: COLONY COUNT 1000-10,000 ORGANISM 1: MIXED GRAM POS & NEG ORGANISMS 12-Hzp-216157:36 Urinalysis, Office (80632) UA - BILIRUBIN Negative (Normal) UA - BLOOD Non Hemolyzed Trace (Normal) UA - KETONES Negative mg/dL (Normal) UA - LEUKOCYTE ESTERASE Moderate (Normal) UA - NITRITE Negative (Normal) UA - PH 5.0 (Normal) UA - PROTEIN Negative mg/dL (Normal) UA - SPECIFIC GRAVITY 1.015 (Normal) URINE UROBILINGN NITA TIMED Normal mg/dL (Normal) UA - GLUCOSE Negative (Normal) 39-Jiy-754766:20 CULTURE, URINE URINE CULTURE See Note {CFU/mL} (Normal) Comments: COLONY COUNT 25,000-50,000 ORGANISM 1: MIXED GRAM POS & NEG ORGANISMS :12 Urinalysis, Office (89951) UA - BILIRUBIN Negative (Normal) UA - BLOOD Negative (Normal) UA - GLUCOSE Negative (Normal) UA - KETONES Negative mg/dL (Normal) UA - LEUKOCYTE ESTERASE Small (Normal) UA - NITRITE Negative (Normal) UA - PH 6.0 (Normal) UA - PROTEIN Negative mg/dL (Normal) UA - SPECIFIC GRAVITY 1.005 (Normal) URINE UROBILINGN NITA TIMED Normal mg/dL (Normal) 58-Zpt-340392:08 CBCD,SMEAR DIFF CELLS COUNTED 100 (Normal) EOS [...] 47-70 WBC 5.1 K/mm3 (Normal) Range: 4.4-11.0 26-Bsi-494182:08 COMP METABOLIC A/G 1.5 {RATIO} (Normal) Range: [...] Range: 0.34-4.82 :28 Blood Glucose , Office (72111) Blood Glucose , Office 124 (Normal) :28 HgA1C , Office (84255) HgA1C , Office 6.1 % (Normal) Range: 4.6 - 7.1 :38 CERULOPLAS 1560 21.3 mg/dL (Normal) Range: 17.9-53.3 Comments: Performed At: [address] [id number] FERRITIN 189 ng/mL (Normal) Range: 8-252 :38 HEP-ABC 511189 HB CORE [id number] SeeNote (Normal) Comments: Result: Negative HB SURF [...] Please note reference interval change HEP A AB,T.2102 SeeNote (Normal) Comments: Result: Negative HEP A [...] Report See Note (Normal) Comments: Exam Number: [id number] THYROID ULTRASOUND HISTORYThyromegaly. High-resolution, real-time linear images [...] is recommended. Reported By: TRUE NAGEL M.D. 93-Wxt-352522:05 Blood Glucose , Office (35951) Blood Glucose , Office 135 (Normal) 52-Rkm-289504:05 HgA1C , Office (56992) HgA1C , Office 5.6 % (Normal) Range: 4.6 - 7.1 59-Afm-92781:02 CBCD,SMEAR DIFF ANISO 1+ (Normal) CELLS COUNTED [...] Report See Note (Normal) Comments: Exam Number: [id number] CT BRAIN WITHOUT AND WITH INTRAVENOUS CONTRAST [...] clinically warranted. Reported By: AIDAN MASON M.D. 23-Lkq-879045:30 CBCD Comments: CALL [phone] TO [phone] BASO% 0.8 % (Normal) Range: 0-1 EO% [...] 1+ANISOCYTOSIS WBC 3.8 K/mm3 (Abnormal) Range: 4.4-11.0 66-Xwg-842575:30 COMP METABOLIC Comments: CALL [phone] TO [phone] A/G 1.5 {RATIO} (Normal) Range: 0.9-2.4 ALB [...] :30 LDH 206 U/L (Abnormal) Comments: CALL [phone] TO [phone] Range: 100-190 :30 URIC 5.7 mg/dL (Normal) Comments: CALL [phone] TO [phone] Range: 2.6-6.0 :30 CULT, DP WOUND Comments: [...] mg/dL (Abnormal) Range: 40-230 Comments: Performed At: [address] [id number] :41 LDH 211 U/L (Abnormal) Range: 100-190 [...] P-IMM (Normal) Comments: REPORT SIGNED: MATEO CASTANEDA 01/31/0702-Nov-20060-Tyv-660529:25 T3UP Comments: COMMENTS: PT IN CATHLABPrecautions*: NOT APPLICABLE T3 UPTAKE 31 % (Normal) Range: 30-39 T7 (FTI) 2.5 (Normal) Range: 1.4-4.5 :25 T4 THYROXIN 8.1 ug/dL (Normal) Comments: COMMENTS: PT IN CATHLABPrecautions*: NOT APPLICABLE Range: 4.8-13.9 5-Yiz-542045:25 TSH 1.78 {uIU/mL} (Normal) Comments: COMMENTS: PT [...] 47-70 WBC 23.9 K/mm3 (Abnormal) Range: 4.4-11.0 13-Qtf-03404:30 AFB C&S [id number] Comments: Precautions*: CHEMO PRECAUTIONSSPECIMEN DESCRIPTION: #2 SAME [...] CHEMO PRECAUTIONSSPECIMEN DESCRIPTION: #1 SAME SOURCE ec-2 3082 (Normal) Comments: ` TESTING PERFORMED AT [facility]. ORIGINAL REPORT ON FILE IN LAB CONTAINS ADDITIONAL TEST SITE INFORMATION. 0069 CULTURE, FUNGUS NO YEAST OR MOLD ISOLATED AFTER 4 WEEKS. :30 13-D CYTOLOGY, SeeNote Comments: Result: SEE PATHOLOGY REPORT Specimen submitted to Anatomical Pathology Department for testing. ec-2 BF/CSF (Normal) 0069 :30 58-Xwc-74014:30 FLUID P-FLU (Normal) Comments: OPERATION Not noted [...] DRAWN 07/22/06-TEST MISSED Range: 100-190 :51 SPE [id number] A/G RATIO 1.3 (Normal) Range: 0.7-2.0 ALBUMIN [...] Evidenceof monoclonal protein is not apparent.Performed At: [address] [id number] M-SPIKE SeeNote (Normal) Comments: Result: Not Observed NOTE: Comment (Normal) Comments: Protein electrophoresis scan will follow via mail orcourier. PROTEIN,TOTAL 6.5 g/dL (Normal) Range: 6.0-8.5 :49 Blood Glucose , Office (64920) Blood Glucose , Office 84 (Normal) :49 HgA1C , Office (55101) HgA1C , Office 6.6 % (Normal) Range: [...] eye, right : Follow up tomorrow with [facility] Indication: Pain, eye, right Need for [...] Paroxysmal tachycardia Planned Observations CPK MB FRACTION (20150)Indication: SOB (shortness of breath) On: Request Comments: stat ASSAY, TROPONIN, QUANTITATIVE (aka Troponin I) (00091)Indication: SOB (shortness of breath) On: Request Comments: stat CBC W/AUTO DIFF WBC (69616)Indication: SOB (shortness of breath) On: 08 Request Comments: stat METABOLIC PANEL, COMPREHENSIVE (06805)Indication: SOB (shortness of breath) On: Request Comments: stat D-Dimer (08178)Indication: SOB (shortness of breath) On: 08 Request Comments: stat BNTP (94219)Indication: SOB (shortness of breath) On: Request Comments: stat CBC with auto diff (64589)Indication: Diabetes mellitus type II, controlled On: :03 Request LIPID PANEL (24803)Indication: Diabetes mellitus type II, controlled On: : Request METABOLIC PANEL, COMPREHENSIVE (56398)Indication: Diabetes mellitus type II, controlled On: :03 Request HGB A1C (49332)Indication: Diabetes mellitus type II, controlled On: : Request TSH (THYROID STIMULATING HORMONE) (16593)Indication: Acquired hypothyroidism On: : Request Metabolic Panel, Basic (97029)Indication: Hyponatremia On: :00 Request TSH (03342)Indication: Diabetes mellitus type II, controlled On: 48 Request Vitamin B-12 (cyanocobalamin) (53858)Indication: B12 deficiency On: :45 Request CBC WITH MANUAL DIFF (19137)Indication: B12 deficiency On: Request T3, FREE (TRIDOTHYRONINE) (41252)Indication: Thyroid nodule On: 48 Request Comments: add to labs already drawn T4, FREE (THYROXINE) (69110)Indication: Thyroid nodule On: 47 Request Comments: add to labs already drawn Digoxin (01382)Indication: Cardiomyopathy On: :44 Request LIPID PANEL (76385)Indication: Mixed hyperlipidemia On: :43 Request TSH (93047)Indication: Acquired hypothyroidism On: :43 Request Vitamin D Hydroxy (36522)Indication: Vitamin D deficiency On: :43 Request KSCUE-GZBTJYGLXEF-JSIHO (53207)Indication: Fatty liver On: :42 Request VITAMIN B-12 (CYANOCOBALAMIN) (67205)Indication: Fatigue On: :42 Request URINALYSIS, W/ MICRO (82270)Indication: Diabetes mellitus type II, controlled On: :30 Request MICROALBUMIN: CREATININE RATIO (99223) AND (49694)Indication: Diabetes mellitus type II, controlled On: : Request CBC with auto diff (21369)Indication: Diabetes mellitus type II, controlled On: : Request METABOLIC PANEL, COMPREHENSIVE (62167)Indication: Diabetes mellitus type II, controlled On: :29 Request HGB A1C (37972)Indication: Diabetes mellitus type II, controlled On: 58-Cpe-282722:29 Request HEPATIC FUNCTION PANEL (87129)Indication: Elevated liver enzymes On: 0-Kpr-780314:38 Request Comments: do in hospital tuesday when get US Metabolic Panel, Comprehensive (67801)Indication: Epigastric pain On: 70-Ean-304509:54 Request Sed Rate Erythrocyte (89839)Indication: Epigastric pain On: :54 Request CBC, Platelets & Auto Diff (38742)Indication: Epigastric pain On: :54 Request OVA & PARASITE DIR SMEAR (95068)Indication: Diarrhea On: :53 Request OCCULT BLOOD FECES SCREEN (64360)Indication: Diarrhea On: :53 Request LEUKOCYTE COUNT, FECAL (27796)Indication: Diarrhea On: :53 Request C-DIFFICILE, STOOL (03239)Indication: Diarrhea On: :53 Request GENESIS CULTURE-STOOL (87101)Indication: Diarrhea On: 02-Ktd-620124:53 Request Magnesium (28092)Indication: Fatigue On: 52-Tha-498914:42 Request Vitamin B-12 (cyanocobalamin) (25263)Indication: Fatigue On: 59-Wlm-903791:41 Request MICROALBUMIN: CREATININE RATIO (58012) AND (54267)Indication: Diabetes mellitus type II, controlled On: 19-Wma-271697:40 Request LIPID PANEL (67181)Indication: Mixed hyperlipidemia On: 19-Xpj-132771:39 Request CBC W/AUTO DIFF WBC (41552)Indication: Fatty liver On: 44-Kxp-385054:30 Request METABOLIC PANEL, COMPREHENSIVE (30324)Indication: Fatty liver On: 61-Son-531821:30 Request Vitamin D Hydroxy (37121)Indication: Vitamin D deficiency On: 81-Yhk-286666:30 Request TSH (49247)Indication: Acquired hypothyroidism On: 68-Xun-076023:30 Request Digoxin (74336)Indication: Cardiomyopathy On: 29-Ccx-819087:29 Request LIPASE (46656)Indication: Epigastric pain On: 82-Maz-278621:28 Request AMYLASE (68213)Indication: Epigastric pain On: 31-Gmm-997942:28 Request URINE GENESIS CULTURE-IDENTIFICATN (54416)Indication: Leukocytes in urine On: 48-Rxb-219226:38 Request MICROALBUMIN: CREATININE RATIO (38448) AND (49786)Indication: Essential hypertension with goal blood pressure less than 130/80 On: :58 Request CBC W/AUTO DIFF WBC (66979)Indication: Essential hypertension with goal blood pressure less than 130/80 On: :58 Request METABOLIC PANEL, COMPREHENSIVE (68419)Indication: Essential hypertension with goal blood pressure less than 130/80 On: :58 Request MOOGD-OEITPOXSGDR-EWLFK (55129)Indication: Abnormal tumor markers On: :57 Request Vitamin D Hydroxy (95278)Indication: Vitamin D deficiency On: :09 Request LIPOPROTEIN, BLD, BY NMR (35646)Indication: Mixed hyperlipidemia On: :09 Request CBC W/AUTO DIFF WBC (67364)Indication: Diabetes mellitus type II, controlled On: :09 Request METABOLIC PANEL, COMPREHENSIVE (65334)Indication: Diabetes mellitus type II, controlled On: :09 Request Potassium Serum (42810)Indication: Hypopotassemia On: 01-Fhi-034809:02 Request POQOK-ISNMWZURXUR-WUNEJ (76030)Indication: Fatty liver On: 20-Lru-066421:57 Request MICROALBUMIN: CREATININE RATIO (68304) AND (57600)Indication: Essential hypertension with goal blood pressure less than 130/80 On: :45 Request CBC W/AUTO DIFF WBC (83804)Indication: Essential hypertension with goal blood pressure less than 130/80 On: :45 Request METABOLIC PANEL, COMPREHENSIVE (30821)Indication: Essential hypertension with goal blood pressure less than 130/80 On: :45 Request Vitamin D Hydroxy (68301)Indication: Vitamin D deficiency On: :45 Request TSH (86986)Indication: Acquired hypothyroidism On: :45 Request LIPID PANEL (74557)Indication: Mixed hyperlipidemia On: :45 Request CBC W/AUTO DIFF WBC (11727)Indication: Diabetes mellitus type II, controlled On: :28 Request RRMAC-SYHWAGWBBYW-YJKXG (14005)Indication: Fatty liver On: :03 Request METABOLIC PANEL, COMPREHENSIVE (66687)Indication: Mixed hyperlipidemia On: :55 Request LIPOPROTEIN, BLD, BY NMR (05068)Indication: Mixed hyperlipidemia On: : Request Metabolic Panel, Basic (60869)Indication: Hypopotassemia On: :55 Request Comments: 10 days CBC (AUTO) (12354)Indication: Uncontrolled type II diabetes mellitus On: : Request Vitamin D Hydroxy (81673)Indication: Vitamin D deficiency On: : Request MICROALBUMIN: CREATININE RATIO (98499) AND (52041)Indication: Uncontrolled type II diabetes mellitus On: : Request METABOLIC PANEL, COMPREHENSIVE (25202)Indication: Essential hypertension with goal blood pressure less than 130/80 On: :02 Request SSZKG-XWHOMSXSVMV-NTGHG (16518)Indication: Fatty liver On: : Request LIPID PANEL (74438)Indication: Mixed hyperlipidemia On: : Request TSH (41572)Indication: Thyroid nodule On: : Request CBC W/AUTO DIFF WBC (33849)Indication: Uncontrolled type II diabetes mellitus On: :47 Request METABOLIC PANEL, COMPREHENSIVE (54649)Indication: Uncontrolled type II diabetes mellitus On: :47 Request LIPID PANEL (71252)Indication: Mixed hyperlipidemia On: :47 Request Vitamin D Hydroxy (88011)Indication: Vitamin D deficiency On: :47 Request LBDYI-DCMMKXRNFVQ-IQQST (72993)Indication: Fatty liver On: : Request CBC W/AUTO DIFF WBC (85414)Indication: Uncontrolled type II diabetes mellitus On: :26 Request LIPID PANEL (36466)Indication: Mixed hyperlipidemia On: : Request MICROALBUMIN: CREATININE RATIO (66104) AND (53910)Indication: Uncontrolled type II diabetes mellitus On: :25 Request TSH (76639)Indication: Acquired hypothyroidism On: :25 Request METABOLIC PANEL, COMPREHENSIVE (25506)Indication: Essential hypertension with goal blood pressure less than 130/80 On: :25 Request Vitamin D Hydroxy (88171)Indication: Vitamin D deficiency On: :25 Request CALCIFEDIOL (03861)Indication: Vitamin D deficiency On: 89-Rju-808893:44 Request Comments: to be done Jun 2015 after done with ergocalciferol URINE GENESIS CULTURE (NITA COL COUNT) (67650)Indication: UTI (lower urinary tract infection) On: 9-Wir-927235:22 Request LIPID PANEL (86785)Indication: Mixed hyperlipidemia On: 4-Sgl-905828:15 Request CBC W/AUTO DIFF WBC (81630)Indication: Uncontrolled type II diabetes mellitus On: 8-Qql-964574:14 Request METABOLIC PANEL, COMPREHENSIVE (33061)Indication: Uncontrolled type II diabetes mellitus On: 4-Nsw-566490:14 Request TSH (78442)Indication: Acquired hypothyroidism On: 8-Xxw-612992:14 Request JKONT-RSJPSGIJYTP-EPRGY (13154)Indication: Fatty liver On: 4-Fxz-961808:14 Request CBC, Platelets & Auto Diff (28056)Indication: HX, PERSONAL, MALIGNANCY, LYMPHATIC NEC On: 10-Zhw-65740:07 Request CBC WITH MANUAL DIFF (16318)Indication: Abnormal glucose tolerance test On: :33 Request MICROALBUMIN: CREATININE RATIO (68597) AND (69857)Indication: Abnormal glucose tolerance test On: :33 Request LIPID PANEL (54031)Indication: Mixed hyperlipidemia On: :31 Request METABOLIC PANEL, COMPREHENSIVE (62944)Indication: Abnormal glucose tolerance test On: :31 Request URINE GENESIS CULTURE-NITA COL COUNT (75896)Indication: Dysuria On: 66-Opq-698829:03 Request RETICULOCYTE COUNT (11450)Indication: Anemia On: :37 Request Iron (98279)Indication: Anemia On: :37 Request Ferritin (34080)Indication: Anemia On: :37 Request CBC (Auto) (30339)Indication: Anemia On: :37 Request CBC, Platelets & Auto Diff (04346)Indication: Fever On: 54-Pqy-99827:03 Request Metabolic Panel, Comprehensive (77120)Indication: Fever On: :03 Request HgA1C , Office (99128)Indication: Abnormal glucose tolerance test On: :55 Request CBC WITH MANUAL DIFF (32248)Indication: Abnormal glucose tolerance test On: :53 Request METABOLIC PANEL, COMPREHENSIVE (51626)Indication: Abnormal glucose tolerance test On: :53 Request LIPID PANEL (16705)Indication: Mixed hyperlipidemia On: :53 Request YMPFH-MUGUYJIBMAU-CXCCC (00705)Indication: Fatty liver On: :53 Request PTT (Activated Partial Thromboplastin Time) (85817)Indication: Fatty liver On: :53 Request PT (Prothrobim Time) (55255)Indication: Fatty liver On: :53 Request MICROALBUMIN: CREATININE RATIO (74265) AND (23978)Indication: Abnormal glucose tolerance test On: 17-Gji-696377:49 Request Anti-TPO Antibody (64690)Indication: Acquired hypothyroidism On: 48-Ikl-448757:14 Request Comments: 1 month TSH (99819)Indication: Acquired hypothyroidism On: 04-Idm-301288:13 Request Comments: 1 month T4, FREE (THYROXINE) (60414)Indication: Acquired hypothyroidism On: :13 Request Comments: 1 month T3, FREE (TRIDOTHYRONINE) (40564)Indication: Acquired hypothyroidism On: 27-Ovc-157603:13 Request Comments: 1 month CBC WITH MANUAL DIFF (48323)Indication: Abnormal glucose tolerance test On: :38 Request METABOLIC PANEL, COMPREHENSIVE (40367)Indication: Abnormal glucose tolerance test On: :38 Request LIPID PANEL (66733)Indication: Mixed hyperlipidemia On: :38 Request MICROALBUMIN: CREATININE RATIO (10553) AND (15664)Indication: Abnormal glucose tolerance test On: 54-Ouj-845710:56 Request CBC WITH MANUAL DIFF (60879)Indication: Elevated LFTs On: 33-Dvs-532305:56 Request METABOLIC PANEL, COMPREHENSIVE (82960)Indication: Elevated LFTs On: 02-Ffg-700315:56 Request LIPID PANEL (13575)Indication: Mixed hyperlipidemia On: 17-Nbg-446650:56 Request TSH (49075)Indication: Acquired hypothyroidism On: 25-Hnq-563247:56 Request CBC WITH MANUAL DIFF (19784)Indication: Essential hypertension with goal blood pressure less than 130/80 On: :34 Request TSH (99887)Indication: Acquired hypothyroidism On: :34 Request METABOLIC PANEL, COMPREHENSIVE (35687)Indication: Fatty liver On: :33 Request LIPID PANEL (15763)Indication: Mixed hyperlipidemia On: :33 Request MICROALBUMIN: CREATININE RATIO (49334) AND (45474)Indication: Uncontrolled type II diabetes mellitus On: 46-Hlo-73309:46 Request TSH (15067)Indication: Acquired hypothyroidism On: 13-Fxg-19127:46 Request LIPID PANEL (90812)Indication: Mixed hyperlipidemia On: :45 Request METABOLIC PANEL, COMPREHENSIVE (21416)Indication: Elevated LFTs On: :45 Request HgA1C , Office (22042)Indication: Uncontrolled type II diabetes mellitus On: :28 Request URINE GENESIS CULTURE-NITA COL COUNT (67327)Indication: Cystitis, acute On: :43 Request URINE GENESIS CULTURE-IDENTIFICATN (69025)Indication: Dysuria On: 04-Jun-20117:10 Request CBC WITH MANUAL DIFF (11226)Indication: Headache On: 87-Stl-228530:56 Request METABOLIC PANEL, COMPREHENSIVE (82748)Indication: Headache On: 99-Dvb-460058:56 Request LIPID PANEL (18015)Indication: Mixed hyperlipidemia On: 26-Zsz-772072:56 Request TSH (87192)Indication: Acquired hypothyroidism On: 53-Eib-574688:56 Request METABOLIC PANEL, COMPREHENSIVE (44017)Indication: Uncontrolled type II diabetes mellitus On: Request HEPATIC FUNCTION PANEL (67745)Indication: Mixed hyperlipidemia On: : Request LIPID PANEL (88259)Indication: Mixed hyperlipidemia On: Request LIPID PANEL (39731)Indication: Mixed hyperlipidemia On: :39 Request MICROALBUMIN: CREATININE RATIO (65725) AND (59975)Indication: Uncontrolled type II diabetes mellitus On: Request CBC WITH MANUAL DIFF (94355)Indication: Essential hypertension with goal blood pressure less than 130/80 On: 39 Request METABOLIC PANEL, COMPREHENSIVE (71320)Indication: Elevated LFTs On: 39 Request TSH (32365)Indication: Acquired hypothyroidism On: :36 Request TSH (46567)Indication: Thyroid nodule On: :20 Request METABOLIC PANEL, COMPREHENSIVE (34157)Indication: Elevated LFTs On: : Request LIPID PANEL (94493)Indication: Mixed hyperlipidemia On: :19 Request C-REACTIVE PROTEIN (36753)Indication: Abnormal findings on diagnostic imaging of other specified body structures On: 96-Cvc-712378: Request SED RATE ERYTHROCYTE (27219)Indication: Abnormal findings on diagnostic imaging of other specified body structures On: 96-Wwk-013201: Request LDH (LD) (LACTATE DEHYDROGENASE) (56366)Indication: Abnormal findings on diagnostic imaging of other specified body structures On: 76-Xdn-622569: Request Urine Protein Electrophoresis (UPEP) (59888)Indication: Abnormal findings on diagnostic imaging of other specified body structures On: 38-Tpq-571563: Request Serum Protein Electrophoresis (SPEP) (00312)Indication: Abnormal findings on diagnostic imaging of other specified body structures On: 46-Wnn-373106: Request METABOLIC PANEL, COMPREHENSIVE (17084)Indication: Diabetes mellitus type II, controlled On: : Request LIPID PANEL (36781)Indication: Mixed hyperlipidemia On: : Request URINE GENESIS CULTURE-NITA COL COUNT (63368)Indication: Dysuria On: 68-Cgd-340961:58 Request HEPATIC FUNCTION PANEL (97486)Indication: Elevated LFTs On: 75-Cvr-646548:18 Request LIPID PANEL (84743)Indication: Mixed hyperlipidemia On: 46-Wqn-874837:17 Request MICROALBUMIN: CREATININE RATIO (06679) AND (27642)Indication: Uncontrolled type II diabetes mellitus On: 5-Tvb-764632:47 Request CBC WITH MANUAL DIFF (84634)Indication: Uncontrolled type II diabetes mellitus On: 3-Blc-215562:47 Request METABOLIC PANEL, COMPREHENSIVE (72071)Indication: Uncontrolled type II diabetes mellitus On: 2-Fvn-743206:47 Request HEPATIC FUNCTION PANEL (50095)Indication: Elevated LFTs On: 4-Ljg-167189:45 Request LIPID PANEL (98573)Indication: Mixed hyperlipidemia On: 2-Emw-601849:44 Request HEPATIC FUNCTION PANEL (90886)Indication: Fatty liver On: 5-Hjf-454516:30 Request LIPID PANEL (96674)Indication: Mixed hyperlipidemia On: 3-Tgn-935669:30 Request URINE GENESIS CULTURE (NITA COL COUNT) (39319)Indication: Low back pain potentially associated with radiculopathy On: 53-Xpb-012611:03 Request MICROALBUMIN: CREATININE RATIO (70964) AND (92094)Indication: Dysuria On: 71-Ubn-349026:05 Request LIPID PANEL (07922)Indication: Dysuria On: 50-Wod-511842:05 Request TSH (21018)Indication: Dysuria On: 37-Kzw-147812:05 Request METABOLIC PANEL, COMPREHENSIVE (07163)Indication: Dysuria On: 93-Hkv-323868:04 Request CBC WITH MANUAL DIFF (76657)Indication: Dysuria On: 01-Zbf-638697:04 Request URINE GENESIS CULTURE-NITA COL COUNT (78262)Indication: Dysuria On: 73-Nyb-388162:45 Request URINE GENESIS CULTURE (NITA COL COUNT) (75135)Indication: Dysuria On: 94-Yim-279283:17 Request METABOLIC PANEL, COMPREHENSIVE (36134)Indication: Fatty liver On: 37-Cor-47474:58 Request Magnesium (05534)Indication: Palpitations On: 80-Kpd-83866:51 Request TSH (52134)Indication: Palpitations On: 27-Dca-68054:51 Request METABOLIC PANEL, COMPREHENSIVE (57101)Indication: Palpitations On: 96-Puz-07767:51 Request CBC WITH MANUAL DIFF (32083)Indication: Palpitations On: 89-Wvh-61112:51 Request GGT (Gamma Glutamyl Transferase) (56602)Indication: Elevated LFTs On: 49-Yyg-312450:16 Request HEPATIC FUNCTION PANEL (85522)Indication: Elevated LFTs On: 61-Mgz-550546:16 Request VITAMIN B-12 (CYANOCOBALAMIN) (84190)Indication: Fatigue On: :23 Request MICROALBUMIN URINE QUANT (94171)Indication: Diabetes mellitus type II, controlled On: 19-Nyc-10956:22 Request TSH (38249)Indication: Fatigue On: :22 Request CBC WITH MANUAL DIFF (92207)Indication: Diabetes mellitus type II, controlled On: :22 Request METABOLIC PANEL, COMPREHENSIVE (90678)Indication: Diabetes mellitus type II, controlled On: :22 Request LIPID PANEL (91765)Indication: Mixed hyperlipidemia On: :22 Request HEPATIC FUNCTION PANEL (92606)Indication: Mixed hyperlipidemia On: 89-Axv-134908:48 Request LIPID PANEL (81973)Indication: Mixed hyperlipidemia On: 56-Uqg-739296:48 Request Comments: in 3 mos Planned Encounters Medical; [facility] 1 Month FU - On: 12-Sep-2018 8:00 [facility] Fast DO, Sangeetha A Fast DO, Sangeetha A Planned Procedures Echo CompleteBy: Fast DO, Sangeetha A On: 04-Sep-2018 Intent Fast DO, Sangeetha A CTA CHEST W/W/O CONTRAST (83060)By: On: 04-Sep-2018 Intent Fast DO, Sangeetha A Fast DO, Sangeetha A Overnight Pulse OX (00146)By: Fast On: 04-Sep-2018 Intent DO, Sangeetha A Fast DO, Sangeetha A Spirometry (04764)By: Fast DO, On: 04-Sep-2018 Intent Sangeetha A Fast DO, Sangeetha A Comments: difficutly with insp effort severe restriction ELECTROCARDIOGRAM, COMPLETE (ECG) On: 04-Sep-2018 Intent (02580)By: Fast DO, Sangeetha A Fast DO, Comments: ekg- 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 and possible recent anterior wall mi- nonspecific st depression Sangeetha A Flu Vaccine (Quadrivalent) [id number]: On: 21-Jul-2018 Intent Fast DO, Sangeetha A Fast DO, Sangeetha A SCREENING DIGITAL TOMOSYNTHESIS OF On: 21-Jul-2018 Intent BREAST (34764)By: Fast DO, Sangeetha A Fast DO, Sangeetha A B 12 Injection, 1000 mcg ([id number])By: On: 31-May-2018 Intent Fast DO, Sangeetha A Fast DO, Sangeetha A Comments: Lot#[id number] EXP:[id number] given:left deltoid Given By: clarita craig ABN signed CT - Abdomen (IV Contrast Needed)By: On: 31-May-2018 Intent Fast DO, Sangeetha A Fast DO, Sangeetha A Doppler Ultrasound OtherBy: Fast DO, On: 19-May-2018 Intent Sangeetha A Fast DO, Sangeetha A Comments: left arm ULTRASOUND OF LIVER (14258)By: On: 24-Feb-2018 Intent Jennifer Rios MD PFT - CompleteBy: Fast DO, Sangeetha A On: 21-Oct-2017 Intent Fast DO, Sangeetha A Comments: at [facility] SCREENING DIGITAL TOMOSYNTHESIS OF On: 21-Oct-2017 Intent BREAST (97284)By: Fast DO, Sangeetha A Comments: end oct Fast DO, Sangeetha A EsophagramBy: Fast DO, Sangeetha A Fast On: 21-Oct-2017 Intent DO, Sangeetha A Comments: with 12 mm tablet ELECTROCARDIOGRAM, COMPLETE (ECG) On: 21-Oct-2017 Intent ([id number])By: Fast DO, Sangeetha A Fast DO, Sangeetha A Flu Vaccine (Quadrivalent) [id number]: On: 07-Jun-2017 Intent Fast DO, Sangeetha A [...] DO, Sangeetha A DEXA SCAN AXIAL SKELETON ([id number])By: On: 16-Aug-2016 Intent Fast DO, Sangeetha A Fast DO, Sangeetha A MAMMOGRAM, SCREENING, BOTH BREAST On: 16-Aug-2016 Intent ([id number])By: Fast DO, Sangeetha A Fast DO, Sangeetha A ELECTROCARDIOGRAM, COMPLETE (ECG) On: 16-Aug-2016 Intent ([id number])By: Fast DO, Sangeetha A Fast DO, Sangeetha A Flu Vaccine (Quadrivalent) [id number]: On: 16-Aug-2016 Intent Fast DO, Sangeetha A Fast DO, Sangeetha A Comments: FLUlot: [id number]:02/09site:Lt deltoidroute:IMdose:.5mlDE[facility] [place] ADMINISTRATION OF INFLUENZA VIRUS On: 16-Aug-2016 Intent VACCINE ([id number])By: Fast DO, Sangeetha A Fast DO, Sangeetha A Ultrasound - ThyroidBy: Fast DO, On: 10-Nov-2015 Intent Sangeetha A Fast DO, Sangeetha A Ultrasound - LiverBy: Fast DO, Sangeetha On: 10-Nov-2015 Intent A Fast DO, Sangeetha A Flu Vaccine (Quadrivalent) [id number]: On: 08-Aug-2015 Intent Fast DO, Sangeetha A Fast DO, Sangeetha A Comments: Lot #[id number]-L dltd, IMDose prefilled syringegiven by:Romero, AMRITANVIS and ABN signed MAMMOGRAM, SCREENING, BOTH BREAST On: 08-Aug-2015 Intent ([id number])By: Fast DO, Sangeetha A Fast DO, Sangeetha A Ultrasound - ThyroidBy: Fast DO, On: 08-Aug-2015 Intent Sangeetha A Fast DO, Sangeetha A Ultrasound - LiverBy: Fast DO, Sangeetha On: 08-Aug-2015 Intent A Fast DO, Sangeetha A ADMINISTRATION OF PNEUMOCOCCAL On: 01-Nov-2014 Intent VACCINE (G0009)By: Fast DO, Sangeetha A Fast DO, Sangeetha A PNEUM VAC ADLT/IMUMNOSPR, SBC/INTRM On: 01-Nov-2014 Intent ([id number])By: Fast DO, Sangeetha A Fast DO, Comments: Lot:[id number]:02/29/16Dose:0.5mgRoute:imSite:mk Garcia By:BATSHEVA Diaz Ultrasound - LiverBy: Fast DO, Sangeetha On: 05-Jul-2014 Intent A Fast DO, Sangeetha A BILATERAL MAMMOGRAMS ([id number])By: Tavon On: 05-Jul-2014 Intent DO, Sangeetha A Fast DO, Sangeetha A Ultrasound - ThyroidBy: Tavon DO, On: 05-Jul-2014 Intent Sangeetha A Fast DO, Sangeetha A ADMINISTRATION OF INFLUENZA VIRUS On: 05-Jul-2014 Intent VACCINE (G0008)By: Tavon DAVIS Sangeetha A Comments: Influenzalot:[id number]:03/25/2015dose:0.5mLRoute: IMlocation:R jewels by:marika Fast DO, Sangeetha A FLU VAC, SPLIT, >3 YEARS, INTRAMUSC On: 05-Jul-2014 Intent ([id number])By: Sangeetha Irvin DO Fast DO, Sangeetha A INFUSION, NORMAL SALINE SOLUTION , On: 15-Apr-2014 Intent 250 CC ([id number])By: Angelina Winn CNP Rocephon Injection, 1 Gm ([id number])By: On: 15-Apr-2014 Intent Angelina Winn CNP Comments: Rocephin 1gmLot #[id number]. [id number] in R hand x 1 stick with [...] SPLIT, >3 YEARS, INTRAMUSC On: 27-Jul-2013 Intent ([id number])By: Fast DO, Sangeetha A Fast DO, Sangeetha A Eprescribed prescriptions ([id number])By: On: 04-Jun-2013 Intent Delisa Melendez LPN SPECIMEN HANDLING/TRANSPORT On: 04-Jun-2013 Intent ([id number])By: Delisa Melendez LPN INFUSION, NORMAL SALINE SOLUTION , On: 15-Feb-2013 Intent 1000 CC (Special Coverage Comments: 500 cc Instructions Apply. See MCM: 2049) ([id number])By: Jennifer Rios MD HYDRATION IV INFUSION, INIT On: 15-Feb-2013 Intent ([id number])By: Jennifer Rios MD Ultrasound - ThyroidBy: Fast DO, On: 19-Jan-2013 Intent Sangeetha A Fast DO, Sangeetha A MAMMOGRAM, SCREENING, BOTH BREASTS On: 19-Jan-2013 Intent ([id number])By: Fast DO, Sangeetha A Fast DO, Comments: due in january Sangeetha A Eprescribed prescriptions ([id number])By: On: 19-Jan-2013 Intent Isabella Grigsby Pulse Oximetry ([id number])By: Seb, On: 29-Sep-2012 Intent Isabella Comments: 98% [...] MAMMOGRAM, SCREENING, BOTH BREASTS On: 24-Jan-2012 Intent ([id number])By: Fast DO, Sangeetha A Fast DO, Sangeetha A TDAP VACCINE >7 IM ([id number])By: Fast On: 04-Oct-2011 Intent DO, Sangeetha A Fast DO, Sangeetha A Comments: Lot:[id number]:08/12/13Amt:prefilledRoute:IMSite:right deltGiven By: NATALEE Spence Aerosol Treatment ([id number])By: Blanca On: 26-Aug-2011 Intent Jennifer KING Pulse Oximetry ([id number])By: Blanca On: 26-Aug-2011 Intent Jennifer KING SPECIMEN HANDLING/TRANSPORT On: 23-Jul-2011 Intent ([id number])By: Delisa Melendez LPN FLU VAC, SPLIT, >3 YEARS, INTRAMUSC On: 05-Jul-2011 Intent ([id number])By: Isabella Grigsby Comments: Lot #[id number]/20/12Site-left deltoidgiven by: Lisa Bello LPN Ultrasound - ThyroidBy: Fast DO, On: 05-Jul-2011 Intent Sangeetha A Fast DO, Sangeetha A MAMMOGRAM, SCREENING, BOTH BREASTS On: 05-Jul-2011 Intent ([id number])By: Fast DO, Sangeetha A Fast DO, Sangeetha A ADMINISTRATION OF INFLUENZA VIRUS On: 05-Jul-2011 Intent VACCINE (G0008)By: Isabella Grigsby Eprescribed prescriptions ([id number])By: On: 04-Jun-2011 Intent Nelli [address]ledo DO CT - Brain/HeadBy: Fast DO, Sangeetha A On: 07-Oct-2010 Intent Fast DO, Sangeetha A Comments: with and without contrast MAMMOGRAM, SCREENING, BOTH BREASTS On: 26-Jun-2010 Intent ([id number])By: Fast DO, Sangeetha A Fast DO, Sangeetha A ADMINISTRATION OF INFLUENZA VIRUS On: 26-Jun-2010 Intent VACCINE (G0008)By: Fast DO, Sangeetha A Fast DO, Sangeetha A FLU VAC, SPLIT, >3 YEARS, INTRAMUSC On: 26-Jun-2010 Intent ([id number])By: Fast DO, Sangeetha A Fast DO, Comments: Lot:[id number] 4PExp:12/2010Dose:0.5mlRoute:IMSite:Left DeltoidGiven by: HEIDI Alberto Ultrasound - ThyroidBy: Fast DO, On: 07-Jan-2010 Intent Sangeetha A Fast DO, Sangeetha A CT - Spine/CervicalBy: Fast DO, On: 15-Dec-2009 Intent Sangeetha A Fast DO, Sangeetha A Comments: 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 -- need to rule out Pulse Oximetry ([id number])By: Fast DO, On: 09-Jul-2009 Intent Sangeetha A Fast DO, Sangeetha A Spirometry ([id number])By: Fast DO, On: 10-Jul-2009 Intent Sangeetha A Fast DO, Sangeetha A Comments: good effort and curve- mild restriciton Radiology - Chest- PA and LatBy: On: 09-Jul-2009 Intent Fast DO, Sangeetha A Fast DO, Sangeetha A Pulse Oximetry ([id number])By: Fast DO, On: 10-Jul-2009 Intent Sangeetha A Fast DO, Sangeetha A Comments: 98 FLU VAC, SPLIT, >3 YEARS, INTRAMUSC On: 09-Jul-2009 Intent ([id number])By: Isabella Grigsby Comments: Lot #[id number]/[id number]-right deltoidDose0.5mlgiven by Juventino Nye LPN IMMUNIZ ADMNIN, 1 VAC, SNGL/COMBO On: 09-Jul-2009 Intent ([id number])By: Isabella Grigsby EKG ([id number])By: Fast DO, Sangeetha A On: 10-Oct-2008 Intent [...] ADMNIN, 1 VAC, SNGL/COMBO On: 10-Jul-2008 Intent ([id number])By: Fast DO, Sangeetha A Fast DO, Sangeetha A FLU VAC, SPLIT, >3 YEARS, INTRAMUSC On: 10-Jul-2008 Intent ([id number])By: Fast DO, Sangeetha A Fast DO, Comments: injection given in left deltoid, pt tolerated welllot # [id number]/ Sangeetha A Holter Monitor 24 hrsBy: Fast DO, On: 10-Jul-2008 Intent Sangeetha A Fast DO, Sangeetha A EKG ([id number])By: Marlene Reddy On: 10-Jul-2008 Intent Comments: ekg [...] glucose tolerance test Encounters Office Visit On: 04-Sep-2018 11:34 Encounter Reason: Shortness of Breath - Symptoms include dyspnea, exercise intolerance, fatigue, lightheadedness, palpitations and cough (dry), while symptoms do not include chest pain or chest tightness. Onset was 1 wee End: 04-Sep-2018 22:06 k(s) ago (going on for a couple [...] swelling- had little ham not much for - she did get better last time with diuretic- taking 2 lasix am 1 at [facility]- no chest pain some palps- supposed to see rosetta in [facility] Diagnosis: BMI 31.0-31.9,adult, Nonsmoker, SOB (shortness of [...] using tylenol and will go back to [place] if need be for shot-sugar fine-n foot [...] off metformin and lisinopril andthen went to [place] for couple weeks then had multiple falls sent back to hospital and transferred to [facility] for few weeks then to [facility] had lots of pt- and doing [...] Patient has been compliant with instructions. Current wa End: 01-Mar-2017 9:26 dication use: no side [...] anxiety and depression. Note for Physical exam: [facility] Wellness Physical- she is down 107 pounds [...] from Need for immunizati on against influenza), [facility] WELLNESS, Encounter for screening mammogram for breast [...] Reason for hospitalization abdominal pain (Went to [facility] on 02/28/15). Hospitalization details include: abnormal [...] previously evaluated by a primary physician (at [facility]- Dr Reyes ). Presentation included lid swelling.Encounter [...] is helping her mood- has followup in [place] may 04 - her weight down 20 [...] sees heart failure doctor next week at [facility] - -- mood ebs and flows- [...] of all the problems -goes back to [facility] on tuesday and psych in 2 [...] or less). 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 Date: (1/12/09). Current symptoms/reason for visit include/s Symptoms include [...] pounds with her cancer- she saw a box brander in [facility] for her tachycardia and they [...]
--- OUTSIDE RECORDS SUMMARY | 2018-10-21 22:50 | XMS RPT_ITS | Continuity of Care Document ---
:1965 Author Organization [facility] Address [facility] [address] [address] Phone Care Team Providers Name Role Phone [...] Comments: getting shots this week Status: Active CHF (congestive heart failure) (I50.9, 428.0) Status: Active Congestive Heart Failure (428.0) Status: [...] immunization against influenza) (Z23, V04.81) Status: Active Nocturnal hypoxia (G47.34, 327.24) Status: Active Non-Hodgkin's lymphoma in adult (C85.90, [...] Quantity: 30 {Capsule} Refills: 3 Ordered:05-Jun-2018 Sangeetha JAVEDbud Sangeetha A Start : 05-Jun-2018 Active Eliquis 5 MG Oral Tablet 1 (one) Tablet bid for 30 days Quantity: 60 {Tablet} Refills: 0 Ordered:14-Aug-2018 Sangeetha JAVEDbud Sangeetha A Start : 14-Aug-2018 Active Gabapentin 100 MG Oral Capsule 1 (one) Capsule bid for 30 days Quantity: 60 {Capsule} Refills: 3 Ordered:05-Jun-2018 Sangeetha JAVEDbud Sangeetha A Start : 05-Jun-2018 Active Haloperidol 1 MG Oral Tablet 1 (one) Tablet am 1/2 pm for 30 days Quantity: 60 {Tablet} Refills: 4 Ordered:21-Jul-2018 Sangeetha JAVEDbud DAVIS Sangeetha A Start : 21-Jul-2018 Active Klor-Con M20 20 MEQ Oral Tablet Extended Release 2 (two) Tablet ER bid for 30 days Quantity: 90 {Tablet} Refills: 3 Ordered:08-Sep-2018 Sangeetha JAVEDbud Sangeetha A Start : 08-Sep-2018 Active LamoTRIgine 150 MG Oral Tablet 1 (one) Tablet qhs for 30 days Quantity: 30 {Tablet} Refills: 3 Ordered:07-Jun-2018 Sangeetha JAVEDbud DAVIS Sangeetha A Start : 07-Jun-2018 Active Lasix 40 MG Oral Tablet 2 (two) Tablet bid for 30 days Quantity: 30 {Tablet} Refills: 4 Ordered:04-Sep-2018 Sangeetha JAVEDbud Sangeetha A Start : 04-Sep-2018 Active MELATONIN, 3MG (Oral Capsule) 1 cap daily (3 MG) Active Mirtazapine 15 MG Oral Tablet 1/2 Tablet qhs for 0 days Quantity: 30 {Tablet} Refills: 0 Ordered:14-Aug-2018 Sangeetha JAVEDbud Sangeetha A Start : 14-Aug-2018 Active Omeprazole [...] days Quantity: 30 {Tablet} Refills: 3 Ordered:14-Aug-2018 Fast DO, Sangeetha AFast DO, Sangeetha A Start : 14-Aug-2018 Active Synthroid 75 MCG Oral Tablet 1 (one) Tablet qd and 2 tabs on tuesday for 90 days Quantity: 102 {Tablet} Refills: 3 Ordered:21-Jul-2018 Fast DO, Sangeetha AFast DO, Sangeetha A Start : 21-Jul-2018 Active Vitamin D3 5000 UNIT Oral Capsule 1 (one) Capsule Capsule qod for 0 days Quantity: 30 {Capsule} Refills: 3 Ordered:01-Mar-2017 Fast DO, Sangeetha AFast DO, Sangeetha A Start : 01-Mar-2017 Active Zofran 4 MG Oral Tablet 1 (one) Tablet Tablet every 8 hours prn nausea vomting for 0 days Quantity: 10 {Tablet} Refills: 0 Ordered:23-Feb-2018 Long TURNSTILE ATTENDANT, Amelia L Start : 23-Feb-2018 Active AMITIZA, 24MCG (Oral Capsule) 1 Capsule Capsule bid for 0 days Quantity: 32 {Capsule} Refills: 0 Ordered:09-Feb-2016 Elodia Baxter Start : 27-Jul-2013 End : 09-Feb-2016 Inactive Amitriptyline HCl 10 MG Oral Tablet 1-2 Tablet qhs prn for 0 days Quantity: 60 {Tablet} Refills: 3 Ordered:19-May-2018 Long TURNSTILE ATTENDANT, Amelia L Start : 21-Oct-2017 End : 19-May-2018 Inactive Amoxicillin 875 MG Oral Tablet 1 (one) Tablet bid for 10 days Quantity: 20 {Tablet} Refills: 0 Ordered:21-Oct-2017 Fast DO, Sangeetha AFast DO, Sangeetha A [...] 7 days Quantity: 14 {Tablet} Refills: 0 Ordered:14-Sep-2018 Fast DO, Sangeetha AFast DO, Sangeetha A [...] days Quantity: 30 {Tablet} Refills: 1 Ordered:19-May-2018 Long TURNSTILE ATTENDANT, Amelia L Start : 25-Jan-2018 End : 19-May-2018 Inactive ERGOCALCIFEROL, 25557AARC (Oral Capsule) 1 (one) Capsule Capsule twice [...] days Quantity: 360 {Tablet} Refills: 3 Ordered:19-May-2018 Long TURNSTILE ATTENDANT, Amelia L Start : 18-Jan-2018 End : 19-May-2018 Inactive LaMICtal 200 MG Oral Tablet 1 Tablet q hs for 30 days Quantity: 30 {Tablet} Refills: 0 Ordered:19-May-2018 Long TURNSTILE ATTENDANT, Amelia L Start : 19-Jan-2013 End : 19-May-2018 Inactive LAMOTRIGINE, 100MG (Oral Tablet) 1 Tablet qhs for 30 days Quantity: 30 {Tablet} Refills: 0 Ordered:05-Jul-2011 Al CRAIG Delisa Start : 05-Jul-2011 End : 04-Aug-2011 Inactive [...] days Quantity: 30 {Tablet} Refills: 0 Ordered:05-Jul-2011 Al CRAIG Delisa Start : 05-Jul-2011 End : 04-Aug-2011 Inactive [...] : 23-Jul-2011 End : 02-Aug-2011 Inactive MAXITROL, 3.5-41394-2.1 (Ophthalmic Ointment) apply to eye lids as [...] hs (50 MG) Inactive Comments:Dr. Hankins NYSTATIN, 345351TDWM/ML (Mouth/Throat Suspension) 5cc Suspension 5 times daily [...] days Quantity: 1 {Applicator} Refills: 0 Ordered:26-Jun-2018 DO, Sangeetha AFast DO, Sangeetha A Start [...] Quantity: 30 {Tablet_DR} Refills: 3 Ordered:24-Apr-2013 Sangeetha DO, Debra A Start : 24-Apr-2013 End : 24-Apr-2013 Discontinued ONGLYZA, 5MG (Oral Tablet) 1 Tablet qd for 0 days Quantity: 30 {Tablet} Refills: 3 Ordered:24-Apr-2013 Sangeetha DO, Debra A Start : 24-Apr-2013 End : 24-Apr-2013 [...] Quantity: 30 {Tablet} Refills: 0 Ordered:25-Aug-2012 Sangeetha DO, Debra A Start : 25-Aug-2012 End : 25-Aug-2012 Discontinued Comments:Dr. Clark VICODIN, 5-500MG (Oral Tablet) 1 (one) Tablet q 6hrs, prn for 0 days Quantity: 30 {Tablet} Refills: 0 Ordered:19-May-2018 Long TURNSTILE ATTENDANT, Amelia L Start : 12-May-2012 End : 19-May-2018 Discontinued Comments:This order discontinued per [facility]. ZOFRAN ODT, 4MG (Oral Tablet Dispersible) qd prn nausea (4 MG) End : 08-Aug-2015 Discontinued Comments:[facility] Allergies and Adverse Reactions Name Dates [...] Completed ICD- BIventricular Completed Date Value Details 06-Sep-2018 Echo, Complete w/ Contrast Result: Comments: See Note; NOTES: [facility] Cardiovascular Services [address] [place] [address] Echo Complete W/ Contrast 09/06/18 1002 MR#: [id number] Acct: [id number] Name: IFEOMA DÍAZ Rep #: [id number] : 1965 53 From: Boone Ch MD Attending Dr: Sangeetha Irvin DO Status: REG CLI Ordering Dr: Sangeetha Ivrin DO Date: 09/06/18 Location: [facility] Sex: F C Admitted: Reason F or Study: SOB Procedure This was a 2D Doppler, Color Flow transthoracic echocardiogram. Contrast injection was performed. Exam performed in department. Left Ventricle Moderately dilated left ventricle . The estimated ejection fraction is 15 %. The global longitudinal strain is severely abnormal. The global longitudinal strain = -2% (abnormal). Stage 3 diastolic dysfunction. There is severe global hyp okinesis of the left ventricle. Right Ventricle Normal RV size. ICD or pacer leads identified within the right ventricle. Normal systolic function. Atria The left atrium is moderately enlarged. Chelly l right atrium. Mitral Valve Normal mitral valve. Moderately severe (3+) mitral valve insufficiency. Tricuspid Valve Normal tricuspid valve. Moderate (2+) tricuspid valve insufficiency. Pulmonary jean ry systolic pressure is 40 mmHg. Aortic Valve Normal aortic valve. Trisinus/trileaflet aortic valve. Pulmonic Valve Normal pulmonic valve. Great Vessels Normal aortic root. The pulmonary artery is n ormal size. The inferior vena cava is dilated. Pericardium/Pleural Small pericardial effusion. There are no echocardiographic indications of cardiac tamponade. Medication 22 gauge I.V. with prn adapto r inserted into right arm. Diluted definity 2ml given slow IV push to enhance endocardial definition. MMode/2D Measurements AND Calculations LVIDd: 6.1 cm IVSd: 0.65 cm Ao root diam: 3.0 cm LVIDs: 5.7 cm LVPWd: 0.74 cm LA dimension: 4.0 cm FS: 5.9 % LAV(MOD-bp): 73.2 ml LVAd ap4: 46.8 cm2 SV(MOD-sp4): 31.6 ml LAV(MOD-b p) Indexed: 37.2 ml/m2 EDV(MOD-sp4): 211.8 ml LAV(MOD-sp2): 69.5 ml EDV(sp4-el): 223.3 ml LAV(MOD-sp4): 74.8 ml LVAs ap4: 41.4 cm2 ESV(MOD-sp4): 180.2 ml ESV(sp4-el): 187.5 ml EF(MOD-sp4): 14.9 % EF(sp4 -el): 16.1 % SV(sp4-el): 35.9 ml LA A4 area: 23.9 cm2 RA A4 area: 17.1 cm2 Time Measurements MV dec time: 0.15 sec D oppler Measurements AND Calculations MV E max nadine: 122.5 cm/sec Ao V2 max: 93.2 cm/sec LV V1 max: 63.0 cm/sec MV A max nadine: 38.4 cm/sec Ao max P.5 mmHg LV V1 max P.6 mmHg MV E/A: 3.2 MR max nadine: 455.3 cm/sec PA V2 max: 48.2 cm/sec TR max nadine: 289.4 cm/sec MR max P.9 mmHg TR max P.5 mmHg MR mean nadine: 319 .6 cm/sec MR mean P.9 mmHg MR VTI: 125.4 cm Interpretation Summary Moderately dilated left ventricle. The estimated ejection fraction is 15 %. The global longitudinal strain is severely abnormal. Moderately severe (3+) mitral valve insufficiency. Pulmonary artery systolic pressure is 40 mmHg. Small pericardial effusion. There are no echocardiographic indications of cardiac tamponade. Stage 3 di astolic dysfunction. Compared to previous study, the left ventricular systolic function is the same.. __ ____ Ordering Physician: Sangeetha Irvin Referring Physician: Sangeetha Irvin Performed By: Brent Garces RCS 09/06/18 1534 Date _ Boone Ch MD CC: Sangeetha Irvin DO Date Dictated: 09/06/18 1002 Date Transcribed: 09/06/18 153 Vehicle Dynamics Engineer: Signed 04-Sep-2018 CTA Chest W/WO Contrast Result: Comments: See Note; NOTES: [facility] Imaging Services [address] [place] [address] CTA Chest W/WO Contrast MR#: [id number] Acct: [id number] Name: IFEOMA ASHRAF Rep #: [id number] : 1965 F 53 From: Ziggy Santos MD PCP: Sangeetha Irvin DO Status: REG CLI Study: CTA Chest W/WO Contrast Date of Exam: 09/04/18 Exam# [id number] Ordering Dr: Sangeetha Irvin DO STUDY: CTA [...] Service support , CC: Sangeetha Irvin DO Vehicle Dynamics Engineer: Signed 14-Jul-2018 Chest PA and Lateral Result: Comments: See Note; NOTES: [facility] Imaging Services [address] [place] [address] Chest PA and Lateral MR#: [id number] Acct: [id number] Name: IFEOMA ASHRAF Rep #: [id number] : 1965 F 53 From: Dimitris Valderrama DO PCP: Sangeetha Irvin DO Status: REG CLI Study: Chest PA and Lateral Date of Exam: 07/14/18 Exam# [id number] Ordering Dr: Shahrzad Todd NP-Pato STUDY: X-RAY CHEST REASON FOR EXAM: Female, [...] Dimitris Valderrama DO at 8:47 EDT Tel [phone], Service support , CC: NUNU Todd; Sangeetha Irvin DO Vehicle Dynamics Engineer: Signed 10-Jun-2018 Pacemaker Check Result: Comments: See Note; NOTES: [facility] [address] [place] [address] Pacemaker Check Date of Service: 06/09/18908 MR#: [id number] Acct: [id number] Name: IFEOMA ASHRAF Rep #: [id number] : 1965 From: Danica Pickering Age/Sex: 53/F Location: [facility] Status: Signed Billing Codes ICD Device Billing: ICD Dev Prog Eval, Single 06/09/18912 <Elec tronically signed by Danica Pickering > Date Danica Pickering 06/10/18 1406<Electronically signed by Boone Ch MD> Cosigner Signat ure: Date (if applicable) Boone Ch MD CC: 08-Jun-2018 Cardiology Visit Report Result: Comments: See Note; NOTES: [facility] [address] [place] [address] OFFICE VISIT Date of Service: 05/31/18 MR#: [id number] Acct: [id number] Name: IFEOMA ASHRAF Rep #: [id number] : 1965 Provider: NUNU Todd Age/Sex: 53/F Location: [facility] Status: Signed with Addenda ADDENDUM by NUNU Todd on 06/01/18 at 0746 Addendum entered and electronic ally signed by LUPE Black 06/01/18 07:46: Patient's outside records from [facility] admission from 04/07/2018 to 04/27/2018 were [...] ultimately discharged home with requested follow-up with [facility] or local neurolo gist in [...] defibrillator (ICD) Z95.810 Generator change 11/13 @ [facility] LUPE Chapman Pacemaker check in February [...] prior to saving. Follow Up 6 Months (LOAN OPERATIONS MANAGER) 05/31/18 (GIUSEPPE) 06/01/18 0747 <Electronically signed by [...] tricuspid regurgitation. She presented [facility] on March 08, 2018 after being found unresponsive in her bathroom. During this hospitalization she was found to have an acute left axillary and left brachial vein DVT and was started on Eliquis. She presented to [facility] emergency department in March 2018 for altered mental status. Her CT scan prior to ER visit showed possible hygroma versus subacute resolving subdural hematoma. She was transferred to [facility] for further evaluation. These records are [...] 05/31/18 Pulse Rate 100 Intake Visit Reasons: [facility] to [facility] to [facility] to [place] Allergies amitriptyline Adverse Reaction (Severe, Verified 05/31/18 [...] meq PO DAILY #30 tab 05/31/18 [Rx] [facility] Medical History Nonrheumatic mitral (valve) insufficiency [...] rter-defibrillator (ICD) Z95.810 Generator change 11/13 @ [facility] LUPE Chapman Pacemaker check in February [...] prior to saving. Follow Up 6 Months (LOAN OPERATIONS MANAGER) 05/31/18 (GIUSEPPE) Coding Level of Care Code [...] Visit Report Result: Comments: See Note; NOTES: [facility] [place] [address] OFFICE VISIT Date of Service: 06/05/18 1314 MR#: [id number] Acct: [id number] Name: TYLRO ASHRAF Rep #: [id number] : 1965 From: Simeon Gresham MD Age/Sex: 53/F Location: [facility] Status: Signed Subjective - Date of Service Date of Service:: 06/05/18 - Chief Complaint Follow up DLBCL - His tory of Present Illness 53-year-old woman was diagnosed with non-Hodgkin's lymphoma, diffuse large B cell, stage IV of the uterine cervix with 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 She had [...] stem cell transplant in February 2007 at [place] with complete remission. She is on observation, [...] Chronic Code Visit Office Visits / Consults: 74079 OV L3 Est 1325 <Electronically signed by Simeon Gresham MD> Date Simeon Gresham MD Cosigner Signature: Date (if applicable) CC: 26-May-2018 Venous Duplex Upper Extremity Result: Comments: See Note; NOTES: [facility] Cardiovascular Services [address] [place] [address] Venous Duplex US, Unilateral 05/25/18 0903 MR#: [id number] Acct: [id number] Name: IFEOMA SILVA Rep #: [id number] : 1965 53 From: Juanjo Russo MD [...] MD CC: Sangeetha Irvin DO Date Dictated: 05/25/1803 Date Transcribed: 05/26/181634 Vehicle Dynamics Engineer: Signed 06-Apr-2018 Chest 1 View (Portable) Result: Comments: See Note; NOTES: [facility] Imaging Services [address] [place] [address] Chest 1 View (Portable) MR#: [id number] Acct: [id number] Name: MARIOWAQASSEBASTIENIFEOMA S Rep #: [id number] : 1965 F 53 From: Levy Lucas DO PCP: Sangeetha Irvin DO Status: PRE ER Study: Chest 1 View (Portable) Date of Exam: 04/06/18 Exam# [id number] Ordering Dr: Dejuan Bacon MD STUDY: X-RAY [...] , CC: Sangeetha Irvin DO; Dejuan Bacon Vehicle Dynamics Engineer: Signed 05-Apr-2018 Brain/Head without Contrast Result: Comments: See Note; NOTES: [facility] Imaging Services [address] [place] [address] Brain/Head without Contrast MR#: [id number] Acct: [id number] Name: IFEOMA ASHRAF Rep # : [id number] : 1965 F 53 From: Levy Lucas DO PCP: Sangeetha Irvin DO Status: REG CLI Study: Brain/Head without Contrast Date of Exam: 04/05/18 Exam# [id number] Ordering Dr: Shahrzad Bartlett MD STUDY : [...] 14:06 EDT Tel , Service support 1- [phone], N.B. : The above information has been verbally conveyed by Levy Lucas DO to connected , Covering Physician, on 04/05/2018 14:06:03 (ET). CC: Sangeetha Irvin DO; Shahrzad Bartlett MD Vehicle Dynamics Engineer: Signed 05-Apr-2018 Brain/Head without Contrast Result: Comments: See Note; NOTES: [facility] Imaging Services [address] [place] [address] Brain/Head without Contrast MR#: [id number] Acct: [id number] Name: IFEOMA ASHRAF Rep # : [id number] : 1965 F 53 From: Levy Lucas DO PCP: Sangeetha Irvin DO Status: REG CLI Study: Brain/Head without Contrast Date of Exam: 04/05/18 Exam# [id number] Ordering Dr: Shahrzad Bartlett MD STUDY : [...] 14:06 EDT Tel , Service support 1- [phone], N.B. : The above information has been verbally conveyed by Levy Lucas DO to connected , Covering Physician, on 04/05/2018 14:06:03 (ET). CC: Sangeetha Irvin DO; Shahrzad Bartlett MD Vehicle Dynamics Engineer: Signed 31-Mar-2018 Cardiology Visit Report Result: Comments: See Note; NOTES: [facility] [address] [place] [address] OFFICE VISIT Date of Service: 03/31/18 MR#: [id number] Acct: [id number] Name: Ifeoma Ashraf Rep #: [id number] : 1965 Provider: Boone Ch MD Age/Sex: 53/F Location: [facility] Status: Signed HPI HPI Chief [...] the emergency department at [facility] on 03/08/2018 aft er being found unresponsive [...] care unit. She was eventually transferred to [facility]. Her major problem at this [...] Lt brachial Intake Visit Reasons: DC to [facility] 03-14 Golf Course Designer Required: No Accompanied by: mother Is patient [...] therapy. I would like to obtain a pattern drum maker ry profile to be able to appropriately adjust any diuretics. At this juncture it may be prudent to add Lasix 40 mg a day to her current regimen. 2. Presence of implantable cardioverter-defibrillator (I CD) Z95.810 Generator change 11/13 @ [facility] Dr. Ahmadi Plan She does have [...] months. 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 (project surveyor) Coding Level of Care Code Off vis,est,level [...] Comments: See Note; NOTES: [facility] Cardiovascular Services [address] [place] [address] 11/22/17 0803 MR#: [id number] Acct: [id number] Name: IFEOMA ASHRAF Rep #: [id number] [...] MD CC: Sangeetha Irvin DO Date Dictated: 11/22/1703 Date Transcribed: 11/22/171517 Vehicle Dynamics Engineer: Signed 18-Nov-2017 Office Visit Report Result: Comments: See Note; NOTES: [facility] [address] [place] [address] OFFICE VISIT Date of Service: 11/17/17 MR#: [id number] Acct: [id number] Patient: IFEOMA ASHRAF Rep #: [id number] : 1965 Provider: Danica Pickering Age/Sex: 52/F Location: [facility] Status: Signed Comments Summary Comments: [...] n office Interview Reason: scheduled follow up Auto Service Advisor: [employer] Name: Lan Mckeon VR Model: [id number] Serial #: [id number] Implant Date: 11/10/17 Year(s): 0 Implant Physician: [...] and No drainage Bibiana ds Lead #1 Auto Service Advisor Lead 1: [employer] Model Lead 1: 7121Q/58 Serial# Lead 1: [id number] Date Implanted Lead 1: 10/10/09 Position Lead [...] 11/18/17 0813<Electronically signed by Noe Morris MD> Mahnazigner Signature: Date (if applicable) Noe Morris MD CC: 10-Nov-2017 Operative Report Result: Comments: See Note; NOTES: [facility] Medical Records Department [address] [place] [address] Operative Report 11/10/17 1148 MR#: [id number] Acct: [id number] Name: SALOME ASHRAF Rep #: [id number] : 1965 52 From: Lior Ahmadi MD PCP: Sangeetha Irvin DO Status: REG SDC Y Location: [facility] Operative Report Date of Procedure: 11/10/17 Preoperative diagnosis is device at end of life for normal battery depletion. Postoperative diagnosis same as above. After informed consent and IV antibiotics the patient was brought to the [facility] and the ski n over [...] chart documents provided by the device company artist representative procedure summary. 11/10/17 1150 <Electronically signed by Lior Ahmadi MD > Date Lior Ahmadi MD CC: Sangeetha Irvin DO; Lior Ahmadi MD Signed 03-Nov-2017 Office Visit Report Result: Comments: See Note; NOTES: [facility] [address] [place] [address] OFFICE VISIT Date of Service: 11/03/17 MR#: [id number] Acct: [id number] Patient: IFEOMA ASHRAF Rep #: [id number] : 1965 Provider: Danica Pickering Age/Sex: 52/F Location: [facility] Status: Signed Comments Summary Comments: [...] in office Interview Reason: routine follow up Auto Service Advisor: [employer] Name: Current VR Model: 1211-36Q ICD Serial #: [id number] Implant Date: 10/10/09 Year(s): 8 Implant Physician: [...] Model Lead 1: 7121Q/58 Serial# Lead 1: [id number] Date Implanted Lead 1: 10/10/09 Position Lead [...] 11/03/17 1648<Electronically signed by Boone Ch MD> [facility] Signature: Date (if applicable) Boone Ch MD CC: 03-Nov-2017 Cardiology Visit Report Result: Comments: See Note; NOTES: [facility] [address] [place] [address] OFFICE VISIT Date of Service: 11/03/17 MR#: [id number] Acct: [id number] Name: IFEOMA ASHRAF Rep #: [id number] : 1965 Provider: Boone Ch MD Age/Sex: 52/F Location: [facility] Status: Signed HPI HPI Details: IFEOMA [...] 25 to 29 (25% per echo 03/11/2015) [facility] Medical History Type 2 diabetes mellitus [...] of automatic cardioverter/defibrillator (AICD) Z95.810 10/06/2009 @ [facility] Plan She is status post [...] was also being followed up at the [facility]. She is also on spironolactone and sh [...] Comments: See Note; NOTES: [facility] Imaging Services [address] [place] [address] Chest PA and Lateral MR#: [id number] Acct: [id number] Name: IFEOMA ASHRAF Rep #: [id number] : 1965 F 52 From: Dimitris Valderrama DO PCP: Sangeetha Irvin DO Status: PRE [facility] Study: Chest PA and Lateral Date of Exam: 11/03/17 Exam# [id number] Ordering Dr: Boone Ch MD STUDY: X-RAY [...] Dimitris Valderrama DO at 18:21 EST Tel [phone], Se rvice support , CC: Boone Ch MD; Sangeetha Irvin DO Vehicle Dynamics Engineer: Signed 14-Oct-2017 Office Visit Report Result: Comments: See Note; NOTES: [facility] [address] [place] [address] OFFICE VISIT Date of Service: 10/12/17 MR#: [id number] Acct: [id number] Patient: IFEOMA ASHRAF Rep #: [id number] : 1965 Provider: Danica Pickering Age/Sex: 52/F Location: [facility] Status: Signed Comments Summary Comments: Single Chamber ICD Evaluation: Interrogation shows No VT/VF episodes since . No Alerts noted. Left pectoral pocket/incision w/o s/s of infection or erosion. Pt offers no cardiac complaints. Presenting rhythm shows Sinus Tachycardia @ 105 bpm. Left pectoral pocket/incision w/o s/s of infection or erosion. FLOWER PLANTER=0%. Battery longevity approx 2.9 mos. At device check in June device showed longevity of 14 mos. D/T longevity decreasing quickly pt scheduled for ICD generator c mane with Dr. Ahmadi on 11/10/17 @ [facility]. Lead impedances, sensing and pace/sense threshold remain stable. No parameter changes made. Counters cleared. Pt scheduled for o.v and teaching on 11/03/17 and ICD g enerator change on 11/10/17. Device Device Date Interviewed: 10/12/17 Follow- up Location: in office Interview Reason: routine follow up Auto Service Advisor: 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 Model Lead 1: 7121Q/58 Serial# Lead 1: [id number] Date Implanted Lead 1: 10/10/09 Position Lead [...] diseases classified elsewhere I43 Orders Orders: 10/13/17 0201 <Electronically signed by Danica Pickering > Date Danica Pickering 10/14/17 1230<Electronically signed by Sharyn KNOX> Mahnazigner Signature: Date (if applicable) Sharyn Turner CC: 15-Jun-2017 Abdomen WITH IV Contrast Result: Comments: See Note; NOTES: [facility] Imaging Services [address] [facility] [place] [address] Abdomen WITH IV Contrast MR#: [id number] Acct: [id number] Name: IFEOMA ASHRAF Rep #: [id number] : 1965 F 52 From: Carl Vincent MD PCP: Sangeetha Irvin DO Status: REG CLI Study: Abdomen WITH IV Contrast Date of Exam: 06/15/17 Exam# [id number] Ordering Dr: Analisa Conway MD STUDY: CT [...] visualized portions of the heart are within chelly l limits. Normal liver. There are surgical [...] CC: Analisa Conway MD; Sangeetha Irvin DO Vehicle Dynamics Engineer: Signed 15-Jun-2017 Spine Cervical without Contras Result: Comments: See Note; NOTES: [facility] Imaging Services [address] [place] [address] Spine Cervical without Contras MR#: [id number] Acct: [id number] Name: IFEOMA ASHRAF Radha p #: [id number] : 1965 F 52 From: Zev Mandujano MD PCP: Sangeetha Irvin DO Status: REG CLI Study: Spine Cervical without Contras Date of Exam: 06/15/17 Exam# [id number] Ordering Dr: Analisa Conway MD STUDY: CT [...] techniques were used for this CT. [facility]. FINDINGS: Normal craniovertebral junction. Normal anterior [...] CC: Analisa Conway MD; Sangeetha Irvin DO Vehicle Dynamics Engineer: Signed 10-Feb-2017 Spine Lumbar without Contrast Result: Comments: See Note; NOTES: [facility] Imaging Services [address] [place] [address] Verda 4d Spine Lumbar without Contrast MR#: [id number] Acct: [id number] Name: MARIOMARISEL ALAN Rep #: [id number] : 1965 F 51 From: Brian Gill MD PCP: Sangeetha Irvin DO Status: REG CLI Study: Spine Lumbar without Contrast Date of Exam: 02/10/17 Exam# [id number] Ordering Dr: Analisa Carr i, MD STUDY: [...] CC: Analisa Conway MD; Sangeetha Irvin DO Vehicle Dynamics Engineer: Signed 20-Jan-2017 Liver Result: Comments: See Note; NOTES: [facility] Imaging Services [address] [place] [address] Zach 4d Liver MR#: [id number] Acct: [id number] Name: IFEOMA ASHRAF Rep #: [id number] : 1965 F 51 From: Vincent Bui DO PCP: Sangeetha Irvin DO Status: REG CLI Study: Liver Date of Exam: 01/20/17 Exam# [id number] Ordering Dr: Sangeetha Irvin DO STUDY: ABDOMINAL [...] Vincent Bui DO at 23:43 EDT Tel [phone], Service support , CC: Sangeetha Irvin DO Vehicle Dynamics Engineer: Signed 20-Jan-2017 Thyroid Result: Comments: See Note; NOTES: [facility] Imaging Services [address] [place] [address] Verdana 4d Thyroid MR#: [id number] Acct: [id number] Name: IFEOMA ASHRAF Rep #: [id number] : 1965 F 51 From: Jin Rolon PCP: Sangeetha Irvin DO Status: REG CLI Study: Thyroid Date of Exam: 01/20/17 Exam# [id number] Ordering Dr: Sangeetha Irvin DO STUDY: THYROID [...] Service support , CC: Sangeetha Irvin DO Vehicle Dynamics Engineer: Signed 17-Nov-2016 Dexa Bone Density Study (HP) Result: Comments: See Note; NOTES: [facility] Imaging Services [address] [place] [address] Verdana 4d Dexa Bone Density Study (HP) MR#: [id number] Acct: [id number] Name: COL HARPAL ASHRAF Rep #: [id number] : 1965 F 51 From: Prashant Delgadillo MD PCP: Sangeetha Irvin DO Status: REG CLI Study: Dexa Bone Density Study (HP) Date of Exam: 11/17/16 Exam# [id number] Ordering Dr: Sangeetha Irvin DO STUDY: DUAL [...] Prashant Delgadillo MD at 10:52 EST Tel [phone], Service support [phone], CC: Sangeetha Irvin DO Vehicle Dynamics Engineer: Signed 17-Nov-2016 SCREENING MAMM (CAD), BILAT Result: Comments: See Note; NOTES: [facility] Imaging Services [address] [place] [address] Verdana 4d SCREENING MAMM (CAD), BILAT MR#: [id number] Acct: [id number] Name: SALOME ASHRAF Rep #: [id number] : 1965 F 51 From: Prashant Delgadillo MD PCP: Sangeetha Irvin DO Status: [facility] CLI Study: SCREENING MAMM (CAD), BILAT Date of Exam: 11/17/16 Exam# [id number] Ordering Dr: Gary Irvin DO MAMMOGRAPHY - [...] biopsy of a clinically suspiciou s abnormality. [id number] Electronically Signed: Prashant Delgadillo MD at 12:55 EST Tel [phone], Service support [phone], CC: Sangeetha Irvin DO Vehicle Dynamics Engineer: Signed 17-Nov-2016 SCREENING MAMM (CAD), BILAT Result: Comments: See Note; NOTES: [facility] Imaging Services [address] [place] [address] Verdana 4d SCREENING MAMM (CAD), BILAT MR#: [id number] Acct: [id number] Name: SALOME ASHRAF Rep #: [id number] : 1965 F 51 From: Prashant Delgadillo MD PCP: Sangeetha Irvin DO Status: REG CLI Study: SCREENING MAMM (CAD), BILAT Date of Exam: 11/17/16 Exam# [id number] Ordering Dr: Gary Irvin DO ADDENDUM by [...] delay biopsy of a clinically suspicious abnormality. [id number] Electronically Signed: Prashant Delgadillo MD at 13:07 EST Tel [phone], Service support [phone], 11/17/16 1315 Date cc: Sangeetha Irvin DO [...] was performed. COMPARISON: [facility] and [...] delay biopsy of a clinically suspicious abnormality. [id number] Electronically Signed: Prashant Delgadillo MD at 12:55 EST Tel [phone], Ser vice support [phone], CC: Sangeetha Irvin DO Vehicle Dynamics Engineer: Signed 19-Dec-2015 Liver Result: Comments: See Note; NOTES: [facility] Imaging Services [address] [place] [address] Verdana 4d Liver MR#: [id number] Acct: [id number] Name: IFEOMA ASHRAF Rep #: [id number] : 1965 F 50 From: Ziggy Santos MD PCP: Sangeetha Irvin DO Status: REG CLI Study: Liver Date of Exam: 12/19/15 Exam# [id number] Ordering Dr: Sangeetha Irvin DO STUDY: ABDOMINAL [...] Service support , CC: Sangeetha Irvin DO Vehicle Dynamics Engineer: Signed 19-Dec-2015 Thyroid Result: Comments: See Note; NOTES: [facility] Imaging Services [address] [place] [address] Verdana 4d Thyroid MR#: [id number] Acct: [id number] Name: IFEOMA ASHRAF Lois ep #: [id number] : 1965 F 50 From: Ziggy Santos MD PCP: Sangeetha Irvin DO Status: REG CLI Study: Thyroid Date of Exam: 12/19/15 Exam# [id number] Ordering Dr: Sangeetha Irvin DO STUDY: THYROID [...] Service support , CC: Sangeetha Irvin DO Vehicle Dynamics Engineer: Signed 14-Aug-2015 Bilat Scrn Digital AND CAD Result: Comments: See Note; NOTES: [facility] Imaging Services [address] [place] [address] Verdana 4d Bilat Scrn Digital AND CAD MR#: [id number] Acct: [id number] Name: IFEOMA ASHRAF Rep #: [id number] : 1965 F 50 From: Prashant Delgadillo MD PCP: Sangeetha Irvin DO Status: REG CLI Study: Bilat Scrn Digital AND CAD Date of Exam: 08/14/15 Exam# [id number] Order ing Dr: Sangeetha Irvin DO MAMMOGRAPHY [...] Prashant Delgadillo MD at 10:49 EST Tel [phone], Service support [phone], CC: Sangeetha Irvin DO Vehicle Dynamics Engineer: Signed 10-Mar-2015 Emergency Department Summary Result: Comments: See Note; NOTES: [facility] Medical Records Department [address] [place] [address] Emergency Department Summary MR#: [id number] Acct: [id number] Name: IFEOMA RASMUSSEN Rep #: [id number] : 1965 49 From: Mayito Roldan DO PCP: Sangeetha Irvin DO [facility] DATE OF [facility]: 02/28/2015 Addendum [...] to home. The patient was written for Percvicente and Astrid per Dr. Lopez and was advised to [...] way. Mayito Roldan DO T: NTS JOB: [id number] 03/10/15 2329 <Electronically signed by Mayito Roldan DO> Date Mayito Roldan DO CC: Sangeetha Irvin DO Date Dictated: 02/28/15824 Date Transcribed: 02/28/15824 Vehicle Dynamics Engineer: Signed 02-Mar-2015 Emergency Department Summary Result: Comments: See Note; NOTES: [facility] Medical Records Department [address] [place] [address] Emergency Department Summary MR#: [id number] Acct: [id number] Name: IFEOMA RASMUSSEN Rep #: [id number] : 1965 49 From: Alejandro Lopez DO [...] The patient has plans to go to [facility] on General. I will give her local surgeon's name if she wants to speak with them or she can certainly also speak with Dr. Irvin. CLINICAL IMPRESSION: Biliary colic. Alejandro Lopez DO T: ROCK JOB: [id number] 03/02/1543 <Electronically signed by Alejandro Lopez DO> Date Alejandro Lopez DO CC: Sangeetha Irvin DO Date Dictated: 718 Date Transcribed: 02/28/15718 Vehicle Dynamics Engineer: Signed 28-Feb-2015 Discharge Instruction Result: Comments: See Note; NOTES: [facility] Medical Records Department [address] [place] [address] Discharge Instruction 02/28/1539 MR#: [id number] Acct: [id number] Name: IFEOMA ASHRAF Rep #: [id number] : 1965 49 From: Alejandro Lopez DO [...] problems, contact your doctor. Call [facility] ([phone]) or report to the closest ergency Room. Call 911 if necessary. 02/28/15639 <Electronically signed by Alejandro Lopez DO> Date Alejandro Lopez DO Cosign er Signature (If Indicated): Date CC: Sangeetha Tavon DAVIS 28-Feb-2015 Gallbladder Result: Comments: See Note; NOTES: [facility] Imaging Services [address] [place] [address] Ultrasound Report MR#: [id number] Acct: [id number] Name: IFEOMA ASHRAF Rep #: [id number] : 1965 F 49 From: Prashant Delgadillo MD PCP: Sangeetha Irvin DO Status: REG ER Study: Gallbladder Date of Exam: 02/28/15 Exam# [id number] Ordering Dr: Alejandro Lopez DO STUDY: ABDOM [...] Prashant Delgadillo MD at 8:15 EDT Tel [phone], Service support [phone], CC: Alejandro Lopez DO; Sangeetha Irvin DO Vehicle Dynamics Engineer: Signed 11-Feb-2015 Spine Cervical without Contras Result: Comments: See Note; NOTES: [facility] Imaging Services [address] [place] [address] CAT Scan Report MR#: [id number] Acct: [id number] Name: IFEOMA ASHRAF Rep #: [id number] : 1965 F 49 From: Prashant Delgadillo MD PCP: Sangeetha Irvin DO Status: REG CLI Study: Spine Cervical without Contras Date of Exam: 02/11/15 Exam# [id number] Ordering Dr: Analisa Conway MD STUDY: CT [...] Prashant Delgadillo MD at 9:49 EDT Tel [phone], Service support [phone], CC: Analisa Conway MD; Sangeetha Irvin DO Vehicle Dynamics Engineer: Signed 18-Jul-2014 Bilat Scrn Digital & CAD Result: Comments: See Note; NOTES: [facility] Imaging Services [address] [place] [address] Breast Imaging Report MR#: [id number] Acct: [id number] Name: IFEOMA ASHRAF Rep # : [id number] : 1965 F 49 From: Prashant Delgadillo MD PCP: Sangeetha Irvin DO Status: REG CLI Exam# [id number] Ordering Dr: Sangeetha Irvin DO MAMMOGRAPHY - [...] Prashant Delgadillo MD at 8:36 EDT Tel [phone], NanoNordi ce support [phone], CC: Sangeetha Irvin DO Vehicle Dynamics Engineer: Signed 18-Jul-2014 Liver Result: Comments: See Note; NOTES: [facility] Imaging Services [address] [place] [address] Ultrasound Report MR#: [id number] Acct: [id number] Name: IFEOMA ASHRAF Rep #: [id number] : 1965 F 49 From: Prashant Delgadillo MD PCP: Sangeetha Irvin DO Status: REG CLI Study: Liver Date of Exam: 07/18/14 Exam# [id number] Ordering Dr: Sangeetha Irvin DO STUDY: ABDOMINAL [...] Prashant Delgadillo MD at 9:34 EDT Tel [phone], Service support [phone], CC: Sangeetha Irvin DO Vehicle Dynamics Engineer: Signed 18-Jul-2014 Thyroid Result: Comments: See Note; NOTES: [facility] Imaging Services [address] [place] [address] Ultrasound Report MR#: [id number] Acct: [id number] Name: IFEOMA ASHRAF Rep #: [id number] : 1965 F 49 From: Prashant Delgadillo MD PCP: Sangeetha Irvin DO Status: REG CLI Study: Thyroid Date of Exam: 07/18/14 Exam# [id number] Ordering Dr: Sangeetha Irivn DO STUDY: THYROID ULTR ASOUND REASON FOR [...] Delgadillo MD at 8:41 EDT T el [phone], Service support [phone], CC: Sangeetha Irvin DO Vehicle Dynamics Engineer: Signed 05-Feb-2014 Brain/Head W/WO Contrast Result: Comments: See Note; NOTES: [facility] Imaging Services [address] [place] [address] CAT Scan Report MR#: [id number] Acct: [id number] Name: IFEOMA ASHRAF Rep #: [id number] : 1965 F 48 From: Prashant Delgadillo MD PCP: Sangeetha Irvin DO Status: REG CLI Study: Brain/Head W/WO Contrast Date of Exam: 02/05/14 Exam# [id number] Ordering Dr: Sangeetha Irvin Y: CT BRAIN WITH AND WITHOUT CONTRAST [...] Prashant Delgadillo MD at 9:19 EDT Tel [phone], Service support [phone], CC: Sangeetha Irvin DO Vehicle Dynamics Engineer: Signed Immunization Name Dates Details Influenza (3 years and up) on: 10-Jul-2008 Comments: injection given in left deltoid, pt tolerated welllot # [id number] Influenza (3 years and up) on: 09-Jul-2009 Comments: Lot #[id number]-right deltoidDose0.5mlgiven by Juventino Nye LPN Family History [...] Value Details :59 BNP,B-Type NATRIURETIC PEPTIDE Comments: [facility] [address] [place], [place], [id number] B-TYPE JACKIE PEP 819.3 pg/mL (Abnormal) Range: 0-100 :59 CBC W/Diff, Automated Comments: [facility] [address] [place], [place], [id number] Absolute Lymph 1.08 {X10_3/ul} (Normal) Range: 0.83-4.51 [...] 4.2-5.4 WBC 7.5 K/mm3 (Normal) Range: 4.4-11.0 82-Jid-540125:59 Comprehensive Metabolic Profil Comments: 'TROP' Serial specimen #1, #2, #3, or #4: 1[facility] [address] [place], [place], [id number] GAP 8 (Normal) Range: 5-15 CO2 29.0 [...] A.D.A. criteria.Please note revised GLUCOSE reference range lczlpfhyk69/02/2018. 10-Leu-974206:59 CPK Total, Creatine Kinase Comments: 'TROP' Serial specimen #1, #2, #3, or #4: [address] [place] [address] [address] [place], [place], [address] CPK TOTAL 30 U/L (Normal) Range: 26-192 72-Xgx-512897:59 D-Dimer Quantitative (DVT/PE) Comments: [facility] [address] [place], [place], [id number] D-DIMER QUANT 1.44 {FEU/ug/m} (Abnormal) Range: 0.27-0.49 Comments: CRITICAL VALUE VERIFIED. CALLED TO DXMYPEAB94/10/18 1440 Francois Quinn.RESULTS READ BACK BY SAME .D-Dimer ELEVATED (>0.49): Additional studies and clinicalassessments are indicated to conclude di agnosis of:Deep Vein Thrombosis (DVT) or Pulmonary Embolism (PE) 87-Ntn-837304:59 Troponin-I Comments: 'TROP' Serial specimen #1, #2, #3, or #4: [address] [place] [address] [place], [place], [address] TROPONIN-I 0.030 ng/mL (Normal) Comments: TROPONIN-I EXPECTED VALUES <0.045 Negative 0.045 - 0.590 Consistent with Cardiac Damage > OR = 0.600 Critical Value Not every elevated troponin is indicative of MO. T hesevalues should be used with clinical judgement in examiningthe patient's clinical picture for diagnosis. To establisha diagnosis of MO versus myocardial injury, there must be ademonstrated rise and/ or fall in the troponin values, inaddition to ischemic symptoms, EKG changes, new regionalwall motion abnormality, and/or angiographical evidence. PLEASE NOTE: REFERENCE RANGES EDITED 02/06/1829-Aug-20188-Sze-173815:44 ANCA Comments: Is Patient Fasting? [facility] (refer to report for specific site)refer to report for address and phone number Atypical pANCA <1:20 {titer} (Normal) Comments: The atypical pANCA pattern has been observed in asignificant percentage of patients with ulcerative colitis,primary sclerosing cholangitis and autoimmune hepatitis.Performed at: [facility] [id number] Director: Omar Hood PhD, Phone: [phone] PERINUCLEAR Ab <1:20 {titer} (Normal) Comments: The presence of positive fluorescence exhibiting P-ANCA orC-ANCA patterns alone is not specific for the diagnosis ofWegener's Granulomatosis (WG) or microscopic polyangiitis.Decisions about treatment sh ould not be based solely onANCA IFA results. The International ANCA Group Consensusrecommends follow up testing of positive sera with both IA-3 and MPO- ANCA enzyme immunoassays. As many as 5% serumsamp les are positive only by EIA. Ref. AM J Clin Vdmjtw6441;111:507-513. CYTOPLASMIC Ab <1:20 {titer} (Normal) 9-Zwr-138215:44 ANTINUCLEAR ANTIBODIES DIRECT Comments: [facility] (refer to report for specific site)refer to report for address and phone number LASHA-DIRECT Negative (Normal) Comments: Performed at: [facility] [address] [id number] Director: Omar Hood PhD, Phone: [phone] 1-Bpp-331904:44 CPK Total, Creatine Kinase Comments: [facility] [address] [place], [place], [phone](086) CPK TOTAL 33 U/L (Normal) Range: 26-192 4-Dsu-103756:44 Hemoglobin A1c Comments: [facility] [address] [facility] [place], [place], [address](327) HGB A1C 10.6 % (Abnormal) Range: 4.2-6.3 8-Gnv-528771:44 PRANEETH AND PE, Random UR Comments: Is Patient Fasting? [facility] (refer to report for specific site)refer to report for address and phone number NOTE Comment (Normal) Comments: Protein electrophoresis scan will follow via computer,mail, or machine design checker delivery. PRANEETH RESULT,U Comment (Normal) Comments: No monoclonality detected. M-SPIKE,UR% Not Observed % (Normal) GAMMA GLOB,U 5.5 % (Normal) BETA GLOB,U 14.2 % (Normal) DSNHV-5-POJK,U 10.8 % (Normal) WXDNO-2-AZSU,U 7.6 % (Normal) ALBUMIN,U 62.0 % (Normal) PROTEIN,UR 27.8 mg/dL (Normal) 7-Ypr-168398:44 PRANEETH + Protein Elect, Serum Comments: Is Patient Fasting? [facility] (refer to report for specific site)refer to report for address and phone number NOTE: Comment (Normal) Comments: Protein electrophoresis scan will follow via computer,mail, or machine design checker delivery. PRANEETH RESULT,S Comment (Normal) Comments: No monoclonality detected. A/G RATIO 1.2 (Normal) Range: 0.7-1.7 GLOBULIN, TOTAL 2.9 g/dL (Normal) Range: 2.2-3.9 M-SPIKE g/dL (Normal) Comments: Not Observed GAMMA GLOBULIN 0.6 g/dL (Normal) Range: 0.4-1.8 BETA GLOBULIN 1.1 g/dL (Normal) Range: 0.7-1.3 JMAAH-0-SNRC 0.9 g/dL (Normal) Range: 0.4-1.0 FPMQN-1-UURH 0.3 g/dL (Normal) Range: 0.0-0.4 ALBUMIN 3.4 g/dL (Normal) Range: 2.9-4.4 IMMUNOGL M 103 mg/dL (Normal) Range: 26-217 IMMUNO A 69 mg/dL (Abnormal) Range: 87-352 IMMUNO G 538 mg/dL (Abnormal) Range: 700-1600 PROTEIN,TOTAL 6.3 g/dL (Normal) Range: 6.0-8.5 9-Aty-352321:44 Rheumatoid Factor Comments: [facility] [address] [place], [place], [id number] RHEUMATOID FAC < 10.0 {IU/mL} (Normal) 3-Mvc-839925:44 Sjogren's Antibodies A/B Comments: [facility] (refer to report for specific site)refer to report for address and phone number Anti-SS-B < 0.2 {AI} (Normal) Range: 0.0-0.9 Anti-SS-A < 0.2 {AI} (Normal) Range: 0.0-0.9 8-Sym-740969:44 Thyroid Stim Hormone (TSH) Comments: [facility] [address], [address] TSH 2.71 {uIU/mL} (Normal) Range: 0.358-3.74 :44 Vitamin B12 1303 pg/mL (Abnormal) Comments: [facility] [address] [place], [address] Range: 211-911 :44 Vitamin D,25 Hydroxy Comments: [facility] [address], [address] Vitamin D 25-OH 62.4 ng/mL (Normal) Range: 29.95-100.01 Comments: Vitamin D 25(OH) Status Range Deficiency <20 ng/mL (50nmol/L) Insuffciency 20 - 30 ng/mL (50 - 75 nmol/L) Sufficiency 30 - 100 ng/mL (75 - 250 nmol/L) Toxicity >100 ng/mL (>250 nmol/L) 1-Mpt-865896:06 Basic Metabolic Profile (BMP) Comments: PLEASE FAX TO DR. IRVIN. [phone] [address] [place], [address] GAP 12 (Normal) Range: 5-15 CO2 26.0 [...] A.D.A. criteria.Please note revised GLUCOSE reference range uhowidiou75/02/2018. 62-Nox-34161:22 CBC W/Diff, Automated Comments: BMP TO DULCE TIMMONS.CBCD, TSH, B12 TO DR. SANGEETHA IRVIN.[facility] [address] [place], [place], [address] Absolute Lymph 1.16 {X10_3/ul} (Normal) Range: 0.83-4.51 [...] 659 pg/mL (Normal) Comments: BMP TO DULCE AGUIRREG.CBCD, TSH, B12 TO DR. SANGEETHA IRVIN.[facility] [address] [place], [address] Range: 211-911 29-Ksd-06163:20 Basic Metabolic Profile (BMP) Comments: BMP TO [employer].SHAHRZAD [facility].CBCD, TSH, B12 TO DR. SANGEETHA IRVIN.[facility] [address] [place], [address] GAP 9 (Normal) Range: 5-15 CO2 [...] criteria.Please note revised GLUCOSE reference range /02/2018. 20-Iqh-94666:20 Thyroid Stim Hormone (TSH) Comments: BMP TO NUNU.SHAHRZAD [facility].CBCD, TSH, B12 TO DR. SANGEETHA IRVIN.[facility] [address] [place], [address] TSH 4.09 {uIU/mL} (Abnormal) Range: 0.358-3.74 62-Zem-518921:23 Basic Metabolic Profile (BMP) Comments: [facility] [address] [place], [address] GAP 7 (Normal) Range: 5-15 CO2 30.0 [...] A.D.A. criteria.Please note revised GLUCOSE reference range xdiucpnxx28/02/2018. 05-Mdy-995515:23 BNP,B-Type NATRIURETIC PEPTIDE Comments: [facility] [address] [place], [place], [address] B-TYPE JACKIE PEP 892.7 pg/mL (Abnormal) Range: 0-100 54-Zpq-355333:23 CBC W/Diff, Automated Comments: [facility] [address] [place], [place], [address] Absolute Lymph 1.23 {X10_3/ul} (Normal) Range: 0.83-4.51 [...] 4.2-5.4 WBC 7.2 K/mm3 (Normal) Range: 4.4-11.0 28-Xfs-234341:41 CBC W/Diff, Automated Comments: Reason for Laboratory Test .[facility] [address] [place], [place], [address] Absolute Lymph 0.85 {X10_3/ul} (Normal) Range: 0.83-4.51 [...] 4.2-5.4 WBC 5.7 K/mm3 (Normal) Range: 4.4-11.0 28-Uby-286299:41 Comprehensive Metabolic Profil Comments: Reason for Laboratory Test .Serial Specimen #1, #2 or #3? 1[facility] [address] [place], [address] GAP 8 (Normal) Range: 5-15 CO2 28.0 [...] A.D.A. criteria.Please note revised GLUCOSE reference range prfwaiiyl29/02/2018. 60-Mtm-816781:41 LDH 224 U/L (Normal) Comments: Reason for Laboratory Test .Serial Specimen #1, #2 or #3? 1[facility] [address] [place], [place], [id number] Range: 84-246 6-Wsd-055688:41 URINE GENESIS CULTURE-IDENTIFICATN Comments: add to urine in lab; PATIENT NOT FASTINGPERFORMED BY: [employer] [facility] [id number] Information: SRC: ([id number]) Result 1 ENTEAE (Abnormal) Comments: Enterobacter aerogenes1,000 [...] S Urine Final report Culture,Comprehensi (Abnormal) ve 26-Dow-65172:46 AFP, Tumor Marker Comments: Is Patient ? [facility] (refer to report for specific site)refer to report for address and phone number AFP TUMOR 2253 10.0 ng/mL (Abnormal) Range: 0.0-8.3 Comments: Khanh ECLIA methodologyPerformed at: CB - [facility] [address] [place] [id number] Director: Omar Hood PhD, Phone: [phone] :46 CBC W/Diff, Automated Comments: [facility] [address] [facility] [place], [address] Absolute Lymph 0.95 {X10_3/ul} (Normal) [...] ADD T3F T4F TO BLOOD FROM 05-25-[address] [place], [address] GAP 9 (Normal) Range: 5-15 CO2 28.0 [...] A.D.A. criteria.Please note revised GLUCOSE reference range frkeawjzh82/02/2018. :46 Digoxin Level Comments: [facility] [address] [place], [address] DIG 0.71 ng/mL (Abnormal) Range: 0.80-2.00 :46 Free T3 Comments: PLEASE ADD T3F T4F TO BLOOD FROM 05-25-[address] [place], [address] FREE T3 3.2 pg/mL (Normal) Range: 2.18-3.98 :46 Hemoglobin A1c Comments: [facility] [address] [place], [address] HGB A1C 5.4 % (Normal) Range: 4.2-6.3 :46 Lipid Profile Comments: PLEASE ADD T3F T4F TO BLOOD FROM 05-25-18G2 5 [facility] [address] [place], [place], [address] VLDL 22 mg/dL (Normal) Range: 5-40 LDL [...] Microalb:Creat Ratio,Random UR Comments: [facility] [address]mgqniuxlg[address] [place], [place], [address] MALB:CREAT 7.8 {mg/g_CRE} (Normal) MICROALBUMIN,UR 10.9 mg/L (Normal) UR CREAT 139.00 mg/dL (Normal) :46 T4 Free Direct Comments: PLEASE ADD T3F T4F TO BLOOD FROM 05-25-18 THG2 5 [facility] Hwmlkaftxf3276 [address] [place], [place], [address] T4 FREE DIRECT 1.11 ng/dL (Normal) Range: 0.76-1.46 :46 Thyroid Stim Hormone (TSH) Comments: PLEASE ADD T3F T4F TO BLOOD FROM 8-30-18 [facility] 5 [facility] Cdrrwmpvdx3788 [place], [address] TSH 0.31 {uIU/mL} (Abnormal) Range: 0.358-3.74 :46 Urinalysis, Complete Comments: How was Urine Obtained? [facility] Uugsqwhzwl8378 [place], [address] MUCUS, URINE 0 SEEN [...] 368 pg/mL (Normal) Comments: [facility] Awwurlryrz4263 [place], [address] Range: 211-911 :46 Vitamin D,25 Hydroxy Comments: [facility] Iohbayfnac2069 [place], [address] Vitamin D 25-OH 64.5 ng/mL (Normal) Range: 29.95-100.01 Comments: Vitamin D 25(OH) Status Range Deficiency <20 ng/mL (50nmol/L) Insuffciency 20 - 30 ng/mL (50 - 75 nmol/L) Sufficiency 30 - 100 ng/mL (75 - 250 nmol/L) Toxicity >100 ng/mL (>250 nmol/L) 65-Nue-389344:52 Urinalysis, Complete Comments: Order Date: 04/06/18Has pt arrived? YHow was Urine Obtained? [facility] SPECIMENWMi[facility] Kacphmaiiu[address] [place], [address] HYALINE CAST 5-10 SEEN {/lpf} (Normal) [...] (Normal) CLARITY Cloudy (Normal) COLOR Yellow (Normal) 63-Mfi-533651:30 CBC W/Diff, Automated Comments: [facility] Sbkexvaprl9[address] [place], [place], [address] OVALOCYTE RARE (Normal) MACROCYTE 1+ (Normal) ANISO [...] 4.2-5.4 WBC 9.1 K/mm3 (Normal) Range: 4.4-11.0 00-Lcj-114968:30 Comprehensive Metabolic Profil Comments: [facility] Buotrmtfrf7274 [place], [address] GAP 12 (Normal) Range: 5-15 CO2 30.0 [...] Comments: Please note revised GLUCOSE reference range acozmdady86/02/2018. 36-Apk-137946:30 Lactic Acid Comments: Yes/No query for Sepsis Lactate Rule [facility] [address] [place], [address] LACTIC ACID 6.7 mmol/L (Abnormal) Range: 0.4-2.0 Comments: Critical Result(s) Called Lisa RIVERA at: 20:23: by: BRITTANY TORRES 30-Zdl-313728:30 Partial Thromboplast Time Comments: [facility] [address] [place], [place], [address] PTT 41.3 s (Abnormal) Range: 24.1-36.2 43-Dzv-843395:30 Prothrombin Time w/INR Comments: [facility] [address] [place], [place], [address] INR 2.3 (Normal) PROTIME 25.6 s (Abnormal) Range: 11.7-14.9 05-Pja-298190:30 Troponin-I Comments: [address] [place], [place], [address] TROPONIN-I 0.046 ng/mL (Abnormal) Comments: TROPONIN-I EXPECTED VALUES <0.045 Negative 0.045 - 0.590 Consistent with Cardiac Damage > OR = 0.600 Critical Value Not every elevated troponin is indicative of MO. T hesevalues should be used with clinical judgement in examiningthe patient's clinical picture for diagnosis. To establisha diagnosis of MO versus myocardial injury, there must be ademonstrated rise and/ or fall in the troponin values, inaddition to ischemic symptoms, EKG changes, new regionalwall motion abnormality, and/or angiographical evidence. PLEASE NOTE: REFERENCE RANGES EDITED 02/06/1805-Apr-201830-Old-983717:08 Ammonia Comments: [facility] [address]ejljlhsp[address] [place], [place], [address] AMMONIA 20.0 umol/L (Normal) Range: 11-32 88-Sry-718674:08 CBC-Complete Blood Cnt No Diff Comments: [facility] Uebhjfwpwc[address] [place], [place], [address] MPV 10.6 fL (Normal) Range: 6.2-12.0 PLT [...] 4.2-5.4 WBC 6.6 K/mm3 (Normal) Range: 4.4-11.0 59-Mal-462389:08 Comprehensive Metabolic Profil Comments: [facility] [address] [place], [place], [address] GAP 9 (Normal) Range: 5-15 CO2 35.0 [...] Comments: Please note revised GLUCOSE reference range maeuwlhje84/02/2018. 53-Bac-284945:08 Differential Comment Comments: [facility] Srozeyxvot[address] [place], [place], [address] SMEAR COMMENT COMMENT (Normal) Comments: SLIDE SCANNED - 1+ ANISO NOTED. 69-Ogw-72638:55 Urinalysis, Complete Comments: How was Urine Obtained? [facility] SPECIMENWMiami [facility] Hospital Ukkuygzqed85[address] [place], [place], [address] AMORPHOUS 2+ (Normal) HYALINE CAST 5-10 SEEN [...] Drug Screen (VISTA) Comments: [facility] Gjcirpwjro47[address] [place], [address] TO BE CONFIRMED (Normal) Comments: [...] TESTING MUST BE ORDERED SEPARATELY. USE TESTMNEMONIC: [facility] :59 Bedside Glucose Comments: [facility] LaboratoryPoint of Fear[address] [place] [address] BEDSIDE GLU 169 mg/dL (Abnormal) Range: 70-110 Comments: MANAGEMENT OF PATIENT CARE PER NURSING PROTOCOL :35 Basic Metabolic Profile (BMP) Comments: [facility] Aqmoolvkcy8012 [place], [address] GAP 16 (Abnormal) Range: 5-15 CO2 15.0 mmol/L (Abnormal) Range: 21.0-32.0 CL 104 mmol/L (Normal) Range: 98-107 K 6.2 mmol/L (Abnormal) Range: 3.5-5.1 Comments: Critical Result(s) Called at: 01:06:28 03/08/2018 by:ANSLEY STANFORD,HOG OPERATOR NA 135 mmol/L (Abnormal) Range: 136-145 CA [...] A.D.A. criteria.Please note revised GLUCOSE reference range hrzfoounf18/02/2018. 82-Hra-147725:59 Acetaminophen (Tylenol) Level Comments: [facility] [address] [place], [place], [address] ACETAMINOPHEN 4.9 ug/mL (Abnormal) Range: 10.0-30.0 Comments: Slight Icterus, Result may be falsely decreased. 01-Lzf-315944:59 Acetone Serum Comments: [facility] [address] [place], [place], [address] ACETONE SERUM NEGATIVE (Normal) 29-Jzq-637800:59 Alcohol, Blood (Medical)-Serum Comments: [facility] [address] [place], [place], [address] SERUM ETOH 8.0 mg/dL (Normal) Comments: The serum:whole blood ethanol ratio is approximately 1.14and varies slightly with hematocrit.Medical Alcohol reference interval and critical value innon-tolerant individuals; 50 - 100 Impairment 100 Intoxication 100 - 250 Severe Poisoning 250 - 400 Deep/possible fatal coma :59 Digoxin Level Comments: [facility] [address] [place], [place], [address] DIG 0.32 ng/mL (Abnormal) Range: 0.80-2.00 61-Uhr-568765:59 Lactic Acid Comments: Yes/No query for Sepsis Lactate Rule [facility] [address]yg[address]ffobsw[address] [place], [address] LACTIC ACID 12.4 mmol/L (Abnormal) Range: 0.4-2.0 Comments: Critical Result(s) Called at: 00:52:58 03/08/2018 by:ANSLEY OWENS RN ED 70-Jku-670548:59 Partial Thromboplast Time Comments: [facility] [address]beszl7[address] [place], [address] PTT 33.7 s (Normal) Range: 24.1-36.2 :59 Prothrombin Time w/INR Comments: [place] [address] [place], [address] INR 2.4 (Normal) PROTIME 26.4 s (Abnormal) Range: 11.7-14.9 54-Siz-157341:59 Salicylate Comments: [facility] Dgajrgmlbf[address]24 [place], [address] SALICYLATE < 1.7 mg/dL (Abnormal) Range: 2.8-20.0 Comments: Slight Icterus, Result may be falsely decreased. :02 Blood Gases by [facility] Comments: [facility] LaboratoryPoint of [address] [place] [address] SO2 ISTAT 99 % (Normal) Range: [...] Radial (Normal) BLD GAS TYPE ART (Normal) 80-Jhs-043501:52 Bedside Glucose Comments: [facility] LaboratoryPoint of [address] [address] BEDSIDE GLU 214 mg/dL (Abnormal) Range: 70-110 Comments: MANAGEMENT OF PATIENT CARE PER NURSING PROTOCOL 43-Fbw-314917:37 Basic Metabolic Profile (BMP) Comments: [facility] [address]xpeqfckap8[address] [place], [address] GAP 19 (Abnormal) Range: 5-15 [...] A.D.A. criteria.Please note revised GLUCOSE reference range bdhutntjs84/02/2018. 14-Jyk-863223:37 CBC W/Diff, Automated Comments: [facility] Mdiziqygzy5[address] [place], [address] CRENATED RBC 1+ (Normal) ANISO 1+ (Normal) [...] 4.2-5.4 WBC 5.5 K/mm3 (Normal) Range: 4.4-11.0 68-Lsv-428713:37 Lipase Comments: [facility] Uaicoaqael2910 [facility]. [place], [place], [address] LIPASE 86 U/L (Normal) Range: 73-393 71-Xxg-800315:37 Liver Profile Comments: [facility] Lxbdcfufrd9863 [facility]. [place], [place], [address] D BILI 1.07 mg/dL (Abnormal) Range: 0.00-0.30 [...] 6.4-8.2 :37 Magnesium Comments: [facility] [address] [facility] [place], [address] MG 2.0 mg/dL (Normal) Range: 1.6-2.6 Comments: Moderate Hemolysis, Result may be falsely increased. :37 Troponin-I Comments: [facility] [address] [facility] [place], [address] TROPONIN-I 0.081 ng/mL (Abnormal) Comments: TROPONIN-I EXPECTED VALUES <0.045 Negative 0.045 - 0.590 Consistent with Cardiac Damage > OR = 0.600 Critical Value Not every elevated troponin is indicative of MO. T hesevalues should be used with clinical judgement in examiningthe patient's clinical picture for diagnosis. To establisha diagnosis of MO versus myocardial injury, there must be ademonstrated rise and/ or fall in the troponin values, inaddition to ischemic symptoms, EKG changes, new regionalwall motion abnormality, and/or angiographical evidence. PLEASE NOTE: REFERENCE RANGES EDITED 02/06/1824-Feb-20184-Fqv-211636:21 CMV ANTIBODY (79012) Comments: today; PATIENT NOT FASTINGPERFORMED BY: Kleermail6370 [facility] [id number] Cytomegalovirus (CMV) Ab, IgG <0.60 U/mL (Normal) Range: 0.00-0.59 Comments: Negative <0.60 Equivocal 0.60 - 0.69 Positive >0.69 3-Kbb-874209:21 HEPATITIS PANEL (47567) Comments: today; PATIENT NOT FASTINGPERFORMED BY: [facility] [id number] Hep C Virus Ab <0.1 {s/co_ratio} (Normal) Range: 0.0-0.9 Comments: Negative: < 0.8 Indeterminate: 0.8 - 0.9 Positive: > 0.9 . The CDC recommends that a positive HCV antibody result be followed up with a HCV Nucleic Acid Amplification test (394897). Hep B Core Ab, IgM Negative (Normal) HBsAg Screen Negative (Normal) Hep A Ab, IgM Negative (Normal) 5-Hzo-982733:21 EBV Panel (84992) Comments: today; PATIENT NOT FASTINGPERFORMED BY: [facility] RehabilitationYcsppl9827 [facility] [id number] Interpretation: SPRCS (Normal) Comments: EBV Interpretation Chart [...] <36.0 Equivocal 36.0 - 43.9 Positive >43.9 36-Fqa-286731:19 CBC W/Diff, Automated Comments: Order Date: 02/23/18Order Info: [id number] - CBCDOrder Info: 30357-5 - [facility] [address]vylldocrj[address] [place], [place], [address] MACROCYTE 1+ (Normal) ANISO RARE (Normal) Absolute [...] 4.2-5.4 WBC 6.9 K/mm3 (Normal) Range: 4.4-11.0 52-Pvl-233184:19 Comprehensive Metabolic Profil Comments: Order Date: 02/23/18Order Info: [id number] - CMPOrder Info: 1798-8 - AMYOrder Info: 3040-3 - [facility] Fupovjzduy4724 [facility] [address]. [place], [place], [address] GAP 11 (Normal) Range: 5-15 CO2 25.0 [...] A.D.A. criteria.Please note revised GLUCOSE reference range ymifvimhi95/02/2018. 58-Mga-889880:19 Erythrocyte Sed Rate Comments: Order Date: 02/23/18Order Info: [id number] - CBCDOrder Info: 96352-2 - SEDTr[facility] [address]wekcq[address] [place], [place], [address] SED RATE 16 mm/h (Normal) Range: 0-30 10-Jfv-016448:19 Lipase (53586) Comments: Order Date: 02/23/18Order Info: 0786- 1 - CMPOrder Info: [id number] - AMYOrder Info: 3040-3 - L[facility]ETr[facility] [address] [place], [place], [address] LIPASE 92 U/L (Normal) Range: 73-393 57-Mhc-660976:19 Amylase (43543) Comments: Order Date: 02/23/18Order Info: 0786- 1 - CMPOrder Info: 1798-8 - AMYOrder Info: 3040-3 - [facility] Xgdmcdzdst2484 [address] [place], [address](972) ARIAN 27 U/L (Normal) Range: 25-115 8-Qiv-463615:15 Amylase Comments: CMP, CBCD IS FOR DR ORONA IS FOR [facility] Ekovzzohcv0566 [address] [place], [address](717) ARIAN 29 U/L (Normal) Range: 25-115 9-Vfd-659809:15 CBC W/Diff, Automated Comments: CMP, CBCD IS FOR DR ORONA IS FOR [facility] Fmgfqmozmm60[address] [place], [address] ANISO 1+ (Normal) Absolute Lymph 0.41 {X10_3/ul} [...] 4.2-5.4 WBC 5.3 K/mm3 (Normal) Range: 4.4-11.0 2-Yic-094501:15 Comprehensive Metabolic Profil Comments: CMP, CBCD IS FOR DR ORONA IS FOR DR Benjamindequan [facility] Vxirkgaysf[address] [place], [address] GAP 9 (Normal) Range: 5-15 CO2 27.0 [...] A.D.A. criteria.Please note revised GLUCOSE reference range qjnjtiwcd29/02/2018. 3-Vpl-524749:15 Digoxin Level Comments: CMP, CBCD IS FOR DR ORONA IS FOR [facility] Qghkkzefmp[address] [place], [place], [phone](879) DIG 0.92 ng/mL (Normal) Range: 0.80-2.00 1-Vrd-728865:15 Lipase Comments: [facility], CBCD IS FOR DR ORONA IS FOR [facility] Ol[address]asjhput[address] [place], [address] LIPASE 101 U/L (Normal) Range: 73-393 2-Nwy-452125:15 Lipid Profile Comments: [facility], CBCD IS FOR DR ORONA IS FOR [facility] [address]axvyjsxa[address] [place], [address] VLDL 15 mg/dL (Normal) Range: 5-40 LDL [...] 200-240 mg/dL Borderline >240 mg/dL High Risk 4-Ncs-519367:15 Magnesium Comments: [facility], CBCD IS FOR DR ORONA IS FOR [facility] Kyxqbonepk9[address] [place], [address](237) MG 1.8 mg/dL (Normal) Range: 1.6-2.6 1-Mdl-426803:15 Microalb:Creat Ratio,Random UR Comments: CMP, CBCD IS FOR DR ORONA IS FOR [facility] Wgkcgbavjn[address] [place], [address] MALB:CREAT 34.3 {mg/g_CRE} (Abnormal) MICROALBUMIN,UR 58.6 mg/L (Normal) UR CREAT 171.00 mg/dL (Normal) 0-Rfc-007320:15 Thyroid Stim Hormone (TSH) Comments: CMP, CBCD IS FOR DR ORONA IS FOR [facility] Mugtgcpjjj9503[place] [place], [address] TSH 1.84 {uIU/mL} (Normal) Range: 0.358-3.74 5-Zfw-186290:15 Vitamin B12 383 pg/mL (Normal) Comments: CMP, CBCD IS FOR DR ORONA IS FOR [facility] Ojodploihc0218 [address] [place], [address] Range: 211-911 1-Srx-608033:15 Vitamin D,25 Hydroxy Comments: CMP, CBCD IS FOR DR ORONA IS FOR [facility] Usvxnaydgz85[address] [place], [address] Vitamin D 25-OH 72.0 ng/mL (Normal) Range: 29.95-100.01 Comments: Vitamin D 25(OH) Status Range Deficiency <20 ng/mL (50nmol/L) Insuffciency 20 - 30 ng/mL (50 - 75 nmol/L) Sufficiency 30 - 100 ng/mL (75 - 250 nmol/L) Toxicity >100 ng/mL (>250 nmol/L) 55-Bay-102731:14 Blood Glucose , Office (50616) Blood Glucose , Office 137 (Normal) 99-Fjt-245052:14 HgA1C , Office (98867) HgA1C , Office 6.1 % (Normal) Range: 4.6 - 7.1 69-Zyt-93286:35 CBC W/Diff, Automated Comments: [facility] Mbbfhtkept5787 [place], [address] Absolute Lymph 1.30 {X10_3/ul} (Normal) Range: [...] 4.2-5.4 WBC 4.2 K/mm3 (Abnormal) Range: 4.4-11.0 76-Ovu-39234:33 Comprehensive Metabolic Profil Comments: Reason for Laboratory Test [facility] T[address]fzqodqv6[address] [place], [address] GAP 8 (Normal) Range: 5-15 CO2 31.0 [...] criteria.Please note revised GLUCOSE reference range /02/2018. 90-Rtm-33238:33 LDH 198 U/L (Normal) Comments: Reason for Laboratory Test OVSerial Specimen #1, #2 or #3? [facility] Pzgvykgrre4962 [facility]. [place], [place], [address] Range: 84-246 96-Rmq-762793:15 Culture, Urine Comments: [facility] Acsjwunfsl9145 [facility]. [place], [place], [address] CUUR See Note (Normal) Comments: VERBAL ORDER DR. IRVIN'S OFFICE Urine CultureORGANISM 1: Mixed Gram Positive OrganismsColony Count 11,000-25,000MIX CULTURE Mixed contaminants. Submit a new specimen if indicated. :11 CBC W/Diff, Automated Comments: [facility] Ixrbfmobfq60[address] [place], [address] Absolute Lymph 1.34 {X10_3/ul} (Normal) [...] 4.2-5.4 WBC 5.4 K/mm3 (Normal) Range: 4.4-11.0 :11 Comprehensive Metabolic Profil Comments: Comments: [facility] Wtrtteouii4054 [place], [address] GAP 7 (Normal) Range: 5-15 CO2 28.0 mmol/L (Normal) Range: 21.0-32.0 CL 100 mmol/L (Normal) Range: 98-107 K 3.9 mmol/L (Normal) Range: 3.5-5.1 NA 135 mmol/L (Abnormal) Range: 136-145 T BILI 0.70 mg/dL (Normal) Range: 0.20-1.00 ALT 31 U/L (Normal) Range: 13-56 Comments: Please note revised ALT reference range phxvhqegs15/28/2018. ALK P 110 U/L (Normal) Range: 45-117 [...] A.D.A. criteria.Please note revised GLUCOSE reference range ygebuicwm32/02/2018. 50-Gst-547114:10 Urinalysis, Complete Comments: ORDERED UACDR.JACINDA ORDERED CMP AND CBCDComments: clean catchComments: clean catchHow was Urine Obtained? COMPUTER TERMINAL OPERATOR TO [facility] Ephbqzxijg[address] [place], [place], [address] MUCUS, URINE RARE {/hpf} (Normal) BACTERIA RARE [...] (Normal) CLARITY Cloudy (Normal) COLOR Yellow (Normal) 0-Kqm-867552:42 ,Serum,hCG Quali. Comments: Comments: use blood in [facility] Kjnafygddq[address] [place], [place], [address] HCGSQUAL NEGATIVE {Negative} (Normal) Range: 0-9 Nonpreg HCG Qual triggr 2 m[iU]/mL (Normal) 0-Zsl-542024:41 Basic Metabolic Profile (BMP) Comments: [facility] Scznuychun3047 [facility]. [place], [place], [address] GAP 10 (Normal) Range: 5-15 CO2 28.0 [...] A.D.A. criteria.Please note revised GLUCOSE reference range vwbreaqis79/02/2018. 9-Gyu-542090:41 CBC-Complete Blood Cnt No Diff Comments: [facility] Sddwknwbem9[address] [place], [place], [address] MPV 9.6 fL (Normal) Range: 6.2-12.0 PLT [...] 4.2-5.4 WBC 8.7 K/mm3 (Normal) Range: 4.4-11.0 2-Efg-898108:41 Prothrombin Time w/INR Comments: [facility] [address]nbhzhntuk[address] [place], [place], [address] INR 1.0 (Normal) PROTIME 12.9 s (Normal) Range: 11.7-14.9 03-Nov-20179:00 Culture, Urine Comments: [facility] [address] [place], [place], [address] CUUR See Note (Normal) Comments: Urine CultureORGANISM [...] indicates non-formulary drug at [facility]. Approval by Infectious Disease Specialist required before non- formulary drugs may be ordered and/or dispensed. :27 AFP, Tumor Marker Comments: Is Patient ? NPatient's Weight (LBS.): 124Number of Fetuses: 0[facility] (refer to report for specific site)refer to report for address and phone number AFP TUMOR 2253 6.8 ng/mL (Normal) Range: 0.0-8.3 Comments: [email or web address] ECLIA methodologyPerformed at: [facility] [address] [id number] Director: Omar Hood PhD, Phone: [phone] :[phone] CBC W/Diff, Automated Comments: [facility] Jywmnsxyin8762 [address] [facility]. [place], [place], [address] Absolute Lymph 1.47 {X10_3/ul} (Normal) Range: 0.83-4.51 [...] 4.2-5.4 WBC 6.0 K/mm3 (Normal) Range: 4.4-11.0 52-Qst-49237:27 Comprehensive Metabolic Profil Comments: [facility] Dhbhljycdk32[address] [place], [place], [address] GAP 9 (Normal) Range: 5-15 CO2 28.0 [...] Microalb:Creat Ratio,Random UR Comments: [facility] [address] [place], [place], [address] MALB:CREAT 17.4 {mg/g_CRE} (Normal) MICROALBUMIN,UR 37.5 mg/L (Normal) UR CREAT 215.00 mg/dL (Normal) :40 CBC W/Diff, Automated Comments: [facility] [address] [place], [place], [address] Absolute Lymph 1.60 {X10_3/ul} (Normal) Range: 0.83-4.51 [...] 12/06/16Order Info: 0786-1 - *CMP Complete Metabolic PanelWMiami Valley Hospital Tnxykiegsv2503 [place], [address] GAP 10 (Normal) Range: 5-15 CO2 27.0 [...] :15 Culture, Urine Comments: [facility] [address]uvawlltd[address] [place], [address] CUUR See Note (Normal) Comments: [...] indicates non-formulary drug at [facility]. Approval by Infectious Disease Specialist required before non-formulary drugs may be ordered and/or dispensed. :35 HgA1C , Office (91027) HgA1C , Office 6.5 % (Normal) Range: 4.6 - 7.1 :07 AFP, Tumor Marker Comments: Is Patient ? N[facility] (refer to report for specific site)refer to report for address and phone number AFP TUMOR 2253 8.5 ng/mL (Abnormal) Range: 0.0-8.3 Comments: [email or web address] ECLIA methodologyPerformed at: - [facility] [address] [id number] Director: Omar Hood PhD, Phone: [phone] 31-May-20179:07 CBC W/Diff, Automated Comments: [facility] Fthhavrimz[address] [place], [address] Absolute Lymph 1.17 {X10_3/ul} (Normal) [...] Comprehensive Metabolic Profil Comments: [facility] [address]orfyhav[address] [place], [address] GAP 9 (Normal) Range: 5-15 CO2 28.0 [...] per A.D.A. criteria. 31-May-20179:07 NMR Lipoprofile Comments: [facility] (refer to report [...] the [place] Food and Drug Administration.Performed at: [facility] [address] [place] [id number] Director: Zia Jarvis MD, Phone: [phone] INS RES/DIAB RK . (Normal) LDL SIZE [...] . (Normal) 31-May-20179:07 Vitamin D,25 Hydroxy Comments: [facility] Cfbvskkoqo260[address] [place], [place], [address] Vitamin D 25-OH 61.8 ng/mL (Normal) Comments: Vitamin D 25(OH) Status Range Deficiency <20 ng/mL (50nmol/L) Insuffciency 20 - 30 ng/mL (50 - 75 nmol/L) Sufficiency 30 - 100 ng/mL (75 - 250 nmol/L) Toxicity >100 ng/mL (>250 nmol/L) :48 Liver Profile Comments: [facility] [address]lsyqvnw[address] [place], [place], [address] D BILI 0.14 mg/dL (Normal) Range: 0.00-0.30 T BILI 0.50 mg/dL (Normal) Range: 0.20-1.00 ALT 57 U/L (Normal) Range: 12-78 ALK P 94 U/L (Normal) Range: 45-117 AST 40 U/L (Abnormal) Range: 15-37 GLOB 2.8 g/dL (Normal) Range: 2.3-3.5 ALB 3.9 g/dL (Normal) Range: 3.4-5.0 T PROT 6.7 g/dL (Normal) Range: 6.4-8.2 :45 Potassium Comments: [facility] [address]qzavkquo3650 [facility] [address]. [place], [place], [address] K 4.3 mmol/L (Normal) Range: 3.5-5.1 :35 CBC W/Diff, Automated Comments: [facility] [address]eyfaxuljq[address] [place], [place], [address] Absolute Lymph 1.24 {X10_3/ul} (Normal) Range: 0.83-4.51 [...] Comprehensive Metabolic Profil Comments: [facility] [address]idjzfsq[address] [place], [address] GAP 10 (Normal) Range: 5-15 CO2 31.0 [...] 126 mg/dLsuggests DIABETES MELLITUS per A.D.A. criteria. 01-Eoc-68597:0 ASPIRATION (SLIDES ONLY) See Note (Normal) Comments: [facility] [address]cpbutgady[address] [place], [address] 0 Comments: Patient: IFEOMA ASHRAF : 1965 (52/F) Acct Num: [id number] Phys: Janelle KING,Alejandro Unit Num: [id number] Loc: LABSPEC Specimen: [id number] Received: 03/18/17 - 1126 Spec Ty pe: ASPIRATION TISSUES TISSUES: COMMENT Correlation with clinical, radiologic findings and appropriate follow up are necessary. CYTOLOGY GROSS Received are ten smears labeled wi th the patient's name and designated per the requisition as left thyroid FNA. Submitted for staining. / 03/18/17 TC:5 CPT: 46405 CYTOLOGY STUDY Slides are reviewed. The specimen [...] <signature on file> 01-Mar-20179:30 HEPATITIS C ANTIBODY (86781) Comments: PATIENT NOT FASTINGPERFORMED BY: [facility] Kbapmx4872 Mohinder [facility] [id number] Hep C Virus Ab <0.1 {s/co_ratio} (Normal) Range: 0.0-0.9 Comments: Negative: < 0.8 Indeterminate: 0.8 - 0.9 Positive: > 0.9 . The CDC recommends that a positive HCV antibody result be followed up with a HCV Nucleic Acid Amplification test ([id number]). :30 Potassium Serum (17785) Comments: PATIENT NOT FASTINGPERFORMED BY: [facility] Ywjjkk9744 Mohinder [place] [id number] Potassium, Serum 4.8 mmol/L (Normal) Range: 3.5-5.2 :29 HgA1C , Office (86021) HgA1C , Office 7.9 % (Abnormal) Range: 4.6 - 7.1 :53 CBC W/Diff, Automated Comments: [facility] Oxizgstisp[address] [place], [place], [address] Absolute Lymph 1.57 {X10_3/ul} (Normal) Range: 0.83-4.51 [...] Comprehensive Metabolic Profil Comments: [facility] Vyolvgqjnb5286 [address] [place], [place], [address] GAP 11 (Normal) Range: 5-15 CO2 32.0 [...] :53 Lipid Profile Comments: [facility] Pbihfujvad5[address] [place], [place], [address] VLDL 37 mg/dL (Normal) Range: 5-40 LDL [...] Microalb:Creat Ratio,Random UR Comments: [facility] Skufhmstpa[address]3 [place], [address] MALB:CREAT 19.7 {mg/g_CRE} (Normal) MICROALBUMIN,UR 27.8 mg/L (Normal) UR CREAT 141.00 mg/dL (Normal) 21-Wey-00962:53 Thyroid Stim Hormone (TSH) Comments: [facility] Phpvrxvypi4243 [place], [address] TSH 2.39 {uIU/mL} (Normal) Range: 0.358-3.74 :53 Vitamin D,25 Hydroxy Comments: [facility] Gnlryyzcjf5553 [place], [address] Vitamin D 25-OH 79.9 ng/mL (Normal) Comments: Vitamin D 25(OH) Status Range Deficiency <20 ng/mL (50nmol/L) Insuffciency 20 - 30 ng/mL (50 - 75 nmol/L) Sufficiency 30 - 100 ng/mL (75 - 250 nmol/L) Toxicity >100 ng/mL (>250 nmol/L) 55-Vig-316567:08 CBC W/Diff, Automated Comments: [facility] Jxzlptcent1700 [place], [address] Absolute Lymph 2.04 {X10_3/ul} (Normal) Range: 0.83-4.51 [...] 4.2-5.4 WBC 9.0 K/mm3 (Normal) Range: 4.4-11.0 12-Css-110229:08 Comprehensive Metabolic Profil Comments: [facility] Iladbvgrlf5684 [address] [place], [place], [address] GAP 9 (Normal) Range: 5-15 CO2 27.0 [...] 126 mg/dLsuggests DIABETES MELLITUS per A.D.A. criteria. 91-Acb-400611:00 Culture, Urine Comments: [facility] Jgnvemdtss9562 [place], [address] CUUR See Note (Normal) Comments: Urine CultureORGANISM 1: Mixed Gram Positive OrganismsColony Count >100,000MIX CULTURE Mixed contaminants. Submit a new specimen if indicated. 7-Dvy-883940:25 CBC W/Diff, Auto - EPLAB Comments: At [facility] Outpatient [facility] Medical Oncologypatients receive CBC w/auto Differential ONLY. Physicianwill place an order for a manual differential or Pathologistreview at his discretion. [facility] OUTPATIENT [facility]. [address] [place] [address] [place] [address] GEOLOGICAL TECHNICIAN: MTAEO CASTANEDA DO PH:[phone] Health System [facility] Campus [address] [place], [address] Absolute Lymph 1.42 {X10_3/uL} (Normal) [...] 4.2-5.4 WBC 6.3 K/mm3 (Normal) Range: 4.4-11.0 3-Sfd-483437:25 Comprehensive Metabolic Profil Comments: Order Date: 06/07/16Order Date: 06/07/16erial Specimen #1, #2 or #3? 1[facility] Hlefbiisjo9452 [place], [place], [address] GAP 11 (Normal) Range: 5-15 CO2 24.0 [...] 200 mg/dLsuggests DIABETES MELLITUS per A.D.A. criteria. 7-Kty-859674:25 LDH 208 U/L (Normal) Comments: Order Date: 06/07/16Order Date: 16Serial Specimen #1, #2 or #3? [address] [place] [address] Uifyocdtrf9168 [address] [place], [place], [address] Range: 84-246 4-Byz-246403:25 Uric Acid Comments: Order Date: 06/07/16Order Date: 16Serial Specimen #1, #2 or #3? [address] [place] [address] Jfomwjldey4514 [place], [address] URIC 3.8 mg/dL (Normal) Range: 2.6-6.0 Comments: The drugs N-Acetylcysteine and Metamizole may falsely deressthis assay. :10 HgA1C , Office (63414) HgA1C , Office 8.0 % (Abnormal) Range: 4.6 - 7.1 :10 Blood Glucose , Office (64174) Blood Glucose , Office 223 (Normal) :24 AFP, Tumor Marker Comments: Is Patient ? [facility] (refer to report for specific site)refer to report for address and phone number AFP TUMOR 2253 8.5 ng/mL (Abnormal) Range: 0.0-8.3 Comments: Khanh ECLIA methodologyPerformed at: - [facility] [id number] Director: Omar Hood PhD, Phone: [phone] :24 CBC W/Diff, Automated Comments: [facility] Zkynwfeymt0[address] [place], [place], [address] Absolute Lymph 1.35 {X10_3/ul} (Normal) Range: 0.83-4.51 [...] Range: 4.4-11.0 :24 Comprehensive Metabolic Profil Comments: [facility] Xgznvdokkw2303 [place], [address] GAP 9 (Normal) Range: 5-15 CO2 27.0 [...] per A.D.A. criteria. :24 NMR Lipoprofile Comments: [facility] (refer to report [...] the US Food and Drug Administration.Performed at: [employer] - [facility] n1447 [place], [place] [id number] Director: Zia Jarvis MD, Phone: [phone] INS RES/DIAB RK . (Normal) LDL SIZE [...] mg/dL (Normal) Range: 100-199 LIPIDS . (Normal) 73-Hlg-588196:53 CBC W/Diff, Automated Comments: [facility] Lnpdarjece6158 [place], [address] Absolute Lymph 1.41 {X10_3/ul} (Normal) Range: 0.83-4.51 [...] 4.2-5.4 WBC 12.2 K/mm3 (Abnormal) Range: 4.4-11.0 33-Skq-004848:53 Comprehensive Metabolic Profil Comments: [facility] Rblvcjqgcz2641 [address] [place], [place], [address] GAP 13 (Normal) Range: 5-15 CO2 24.0 [...] A.D.A. criteria. :42 CBC W/Diff, Automated Comments: [facility] Aumjpiguts7866 [address] [place], [place], [address] Absolute Lymph 1.92 {X10_3/ul} (Normal) Range: 0.83-4.51 [...] 4.2-5.4 WBC 6.2 K/mm3 (Normal) Range: 4.4-11.0 73-Qcm-05068:42 Comprehensive Metabolic Profil Comments: [facility] Mzczbwjefx0716 [place], [address] GAP 11 (Normal) Range: 5-15 CO2 25.0 [...] Order Date: 06/07/16Order Date: 06/07/16[facility] Ujaqecslcx[address] [place], [place], [address] MG 2.0 mg/dL (Normal) Range: 1.8-2.4 :57 CBC W/Diff, Auto - EPLAB Comments: At [facility] Outpatient [facility] Medical Oncologypatients receive CBC w/auto Differential ONLY. Physicianwill place an order for a manual differential or Pathologistreview at his discretion. [facility] OUTPATIENT [facility]. [address] [place] [place] [address] GEOLOGICAL TECHNICIAN: MATEO CASTANEDA DO PH:[phone] Health [facility] Campus Giqpcaxlvh45[address] [place], [place], [address] Absolute Lymph 1.38 {X10_3/uL} (Normal) Range: 0.83-4.51 [...] Profil Comments: Order Date: 06/07/16OV Order #: [id number] Specimen #1, #2 or #3? 1 [id number] [facility] Nsrorlshdb2766 [facility] [place], [place], [address] GAP 13 (Normal) Range: 5-15 CO2 24.0 [...] (Normal) Comments: Order Date: 06/07/16OV Order #: [id number] Specimen #1, #2 or #3? [id number] [place] [address] [place], [address] Range: 84-246 :56 Magnesium Comments: Order Date: 06/07/16OV Order #: [id number] Specimen #1, #2 or #3? [address] [place] [address] [place], [address] MG 1.5 mg/dL (Abnormal) Range: 1.8-2.4 :56 Uric Acid Comments: Order Date: 06/07/16OV Order #: [id number] Specimen #1, #2 or #3? [id number] [place] [address] [place], [address] URIC 4.8 mg/dL (Normal) Range: 2.6-6.0 Comments: The drugs N-Acetylcysteine and Metamizole may falsely deressthis assay. :30 Liver Profile Comments: [facility] Oyzjiyunri[address] [place], [address] D BILI 0.13 mg/dL (Normal) Range: 0.00-0.30 T BILI 0.40 mg/dL (Normal) Range: 0.20-1.00 ALT 60 U/L (Normal) Range: 12-78 ALK P 126 U/L (Normal) Range: 50-136 AST 37 U/L (Normal) Range: 15-37 GLOB 2.7 g/dL (Normal) Range: 2.3-3.5 ALB 3.4 g/dL (Normal) Range: 3.4-5.0 T PROT 6.1 g/dL (Abnormal) Range: 6.4-8.2 :33 CBC W/AUTO DIFF WBC Comments: PATIENT NOT FASTINGPERFORMED BY: [facility] Isefxf9413 [facility] [id number] Information: NURSE DRAW (10232) Immature Grans (Abs) 0.0 {x10E3/uL} (Normal) Range: [...] PATIENT NOT FASTINGPERFORMED BY: [facility]CoK[facility] for RehabilitationCjarjp0074 [facility] [id number] (22942) ALT (SGPT) 41 [iU]/L (Abnormal) Range: 0-32 [...] (Abnormal) Range: 65-99 :09 HgA1C , Office (34241) HgA1C , Office 7.0 % (Normal) Range: 4.6 - 7.1 :14 AFP, Tumor Marker Comments: Is Patient ? [facility] (refer to report for specific site)refer to report for address and phone number AFP TUMOR 2253 7.7 ng/mL (Normal) Range: 0.0-8.3 Comments: Khanh ECLIA methodologyPerformed at: CB - [facility] [address] [id number] Director: Omar Hood PhD, Phone: [phone] :14 CBC W/Diff, Automated Comments: [facility] Xvbqtfbfdl23[address] [place], [place], [address] ; will review on 05/17 Absolute Lymph [...] Comprehensive Metabolic Profil Comments: [facility] Wxqwxxpnuc9077 [address] [place], [place], [address] GAP 7 (Normal) Range: 5-15 CO2 28.0 [...] :14 Lipid Profile Comments: [facility] Eqrcqhsffu6939 [address] [place], [place], [address] VLDL 36 mg/dL (Normal) Range: 5-40 LDL [...] Microalb:Creat Ratio,Random UR Comments: [facility] [address]az[address]ftynt[address] [place], [place], [address] ; will review on 05/17 MALB:CREAT 14.6 {mg/g_CRE} (Normal) MICROALBUMIN,UR 23.4 mg/L (Normal) UR CREAT 160.00 mg/dL (Normal) :14 Thyroid Stim Hormone (TSH) Comments: [facility] [address] [place], [place], [address] TSH 1.89 {uIU/mL} (Normal) Range: 0.358-3.74 :14 Vitamin D,25 Hydroxy Comments: [facility] [address] [place], [place], [address] ; will review on 05/17 Vitamin D 25-OH 53.2 ng/mL (Normal) Comments: Vitamin D 25(OH) Status Range Deficiency <20 ng/mL (50nmol/L) Insuffciency 20 - 30 ng/mL (50 - 75 nmol/L) Sufficiency 30 - 100 ng/mL (75 - 250 nmol/L) Toxicity >100 ng/mL (>250 nmol/L) :23 CBC W/Diff, Automated Comments: [facility] [address] [place], [address] Absolute Lymph 1.65 {X10_3/ul} (Normal) Range: [...] 4.2-5.4 WBC 4.4 K/mm3 (Normal) Range: 4.4-11.0 79-Twc-84694:23 Comprehensive Metabolic Profil Comments: [facility] Hybrvogtja14[address] [place], [address] GAP 9 (Normal) Range: 5-15 CO2 30.0 [...] 126 mg/dLsuggests DIABETES MELLITUS per A.D.A. criteria. 87-Jem-094680:07 HgA1C , Office (18813) HgA1C , Office 8.5 % (Abnormal) Range: 4.6 - 7.1 :15 CBC W/Diff, Automated Comments: [facility] [address]qlkkco[address] [place], [place], [address] Absolute Lymph 1.76 {X10_3/ul} (Normal) Range: 0.83-4.51 [...] 4.2-5.4 WBC 6.7 K/mm3 (Normal) Range: 4.4-11.0 28-Jjw-33116:15 Comprehensive Metabolic Profil Comments: [facility] Schjdmwcji9551 [place], [address] GAP 13 (Normal) Range: 5-15 CO2 23.0 [...] :15 Lipid Profile Comments: [facility] Osdltmjicy[address] [place], [place], [address] VLDL 45 mg/dL (Abnormal) Range: 5-40 LDL [...] Vitamin D,25 Hydroxy Comments: [facility] Kunnfoeyla[address] [place], [place], [address] Vitamin D 25-OH 28.8 ng/mL (Normal) Comments: Vitamin D 25(OH) Status Range Deficiency <20 ng/mL (50nmol/L) Insuffciency 20 - 30 ng/mL (50 - 75 nmol/L) Sufficiency 30 - 100 ng/mL (75 - 250 nmol/L) Toxicity >100 ng/mL (>250 nmol/L); ADDENDA: non-emergent till apt :35 CBC W/Diff, Automated Comments: [facility] Axccaqqgcy69[address] [place], [address] Absolute Lymph 1.26 {X10_3/ul} (Normal) Range: [...] 4.2-5.4 WBC 4.8 K/mm3 (Normal) Range: 4.4-11.0 00-Ycc-54044:35 Comprehensive Metabolic Profil Comments: [facility] [address]azoezrnt[address] [place], [address] GAP 14 (Normal) Range: 5-15 CO2 26.0 [...] 200 mg/dLsuggests DIABETES MELLITUS per A.D.A. criteria. 17-Bgx-15849:0 ASPIRATION (SLIDES ONLY) See Note (Normal) Comments: [facility] Q[address]nsbfzhh[address] [place], [address] 0 Comments: Patient: IFEOMA ASHRAF : 1965 (50/F) Acct Num: [id number] Phys: Janelle KING,Alejandro Unit Num: [id number] Loc: [facility] Specimen: [id number] Received: 01/06/16 - 1129 Spec Ty pe: ASPIRATION TISSUES TISSUES: COMMENT Correlation with clinical, radiologic findings and appropriate follow up are necessary. CYTOLOGY GROSS Received are 10 smears labeled wit h the patient's name and designated per the requisition as fine needle aspiration left thyroid. Submitted for staining. 01/06/16 TC:5 CPT:86572 CYTOLOGY STUDY Slides are reviewed. The spe [...] Signed Toni Yepez 01/07/16 <signature on file> 3-Tmq-628586:29 CBC W/Diff, Auto - EPLAB Comments: At [facility] Outpatient [facility] Medical Oncologypatients receive CBC w/auto Differential ONLY. Physicianwill place an order for a manual differential or Pathologistreview at his discretion. [facility] OUTPATIENT [facility]. [address] [place] [place] [address] GEOLOGICAL TECHNICIAN: MATEO CASTANEDA DO PH:[phone] Health [facility] [address]zcthyn[address] [place], [address] Absolute Lymph 1.49 {X10_3/uL} (Normal) Range: 0.83-4.51 [...] #1, #2 or #3? 1[facility] Gzyfdepnrd9746 [place], [address] GAP 8 (Normal) Range: 5-15 CO2 26.0 [...] 126 mg/dLsuggests DIABETES MELLITUS per A.D.A. criteria. 7-Udb-528659:28 LDH 213 U/L (Normal) Comments: Serial Specimen #1, #2 or #3? 1[facility] Drjcnhutfe4151 [place], [address] Range: 84-246 2-Osd-572948:28 Magnesium Comments: Serial Specimen #1, #2 or #3? 1[facility] Qumyxdxvhw5601 [place], [address] MG 1.6 mg/dL (Abnormal) Range: 1.8-2.4 :28 Uric Acid Comments: Serial Specimen #1, #2 or #3? 1[facility] Fwmjlhxurl4[address] [place], [address] URIC 4.8 mg/dL (Normal) Range: 2.6-6.0 :36 Miscellaneous Lab Procedure Comments: Comments: [id number] URINE TOX,RUN LOWEST TESTTest(s) Ordered: [id number] URINE TOX,RUN LOWEST TESTTr[facility] Campus Xipmjpdzmz7180 [place], [address] MISC Comments: [id number] 6+OXYCODONE-BUND (ng/mL)DRUG RESULT SCREEN CUTOFF____ Amphetamines,Urine Negat LAB (Normal) scott ng/mL 1000Amphetamine test includes Amphetamine and Methamphetamine.Barbiturates Negative ng/mL 200Benzodiazepines Negative ng/mL 200Cannabinoid TEST Negative ng/mL 20Cocaine (Metab) Negative ng/mL 300Opiates Positive ng/mL 300 Opiates test includes Codeine, Morphine, Hydromorphone, Adams codone.Please Note:Confirmation performed by Mass SpectrometryCodeine NegativeMorphine NegativeHydromorphone NegativeHydrocodone Positive Hydrocodone Confirm 1950 ng/mL 300Oxycodone/Oxymorphone,Urine Negative ng/mL 300 Test includes Oxydodone and Oxymorphone. TESTI NG PERFOR[facility] AT [facility]. ORIGINAL REPORT ON FILE IN LAB CONTAINS ADDITIONAL TEST SITE INFORMATION. :36 Urine Drug Screen (VISTA) Comments: Comments: [id number] URINE TOX,RUN LOWEST TESTList of Drugs Taken or Suspected? UNKNOWNWMiami [facility] Lcmszchjku4[address] [place], [place], [address] ; ordered by Basali THC NEGATIVE (Normal) [...] MUST BE ORDERED SEPARATELY. USE TESTMNEMONIC: UTCA 53-Pwy-787809:20 HgA1C , Office (36823) HgA1C , Office 7.3 % (Abnormal) Range: 4.6 - 7.1 :13 AFP, Tumor Marker Comments: Is Patient ? [facility] (refer to report for specific site)refer to report for address and phone number AFP TUMOR 2253 6.4 ng/mL (Normal) Range: 0.0-8.3 Comments: Khanh ECLIA methodologyPerformed at: - [facility] [id number] Director: Omar Hood PhD, Phone: [phone] :[phone] CBC W/Diff, Automated Comments: [facility] Hrslsxaqhl77[address] [place], [place], [address] Absolute Lymph 1.59 {X10_3/ul} (Normal) Range: 0.83-4.51 [...] Range: 4.4-11.0 :13 Comprehensive Metabolic Profil Comments: [facility] Vdnctenboi8840 [place], [address] GAP 10 (Normal) Range: 5-15 CO2 24.0 [...] 126 mg/dLsuggests DIABETES MELLITUS per A.D.A. criteria. 04-Sey-33384:13 Lipid Profile Comments: [facility] Unrdcoubcs0[address] [place], [place], [address] ; non-emergent and pt has a f/u [...] Microalb:Creat Ratio,Random UR Comments: [facility] Llunatvvut[address] [place], [address] MALB:CREAT 17.0 {mg/g_CRE} (Normal) MICROALBUMIN,UR 43.7 mg/L (Normal) UR CREAT 257.00 mg/dL (Normal) :13 Thyroid Stim Hormone (TSH) Comments: [facility] Wtxkkaisjr6904 [place], [address] TSH 1.82 {uIU/mL} (Normal) Range: 0.358-3.74 :13 Vitamin D,25 Hydroxy Comments: [facility] [address]vmwhf[address] [place], [address] ; will review at 11/10 appt Vitamin D 25-OH 39.8 ng/mL (Normal) Comments: Vitamin D 25(OH) Status Range Deficiency <20 ng/mL (50nmol/L) Insuffciency 20 - 30 ng/mL (50 - 75 nmol/L) Sufficiency 30 - 100 ng/mL (75 - 250 nmol/L) Toxicity >100 ng/mL (>250 nmol/L) :40 CBC W/Diff, Automated Comments: [facility] Tcyagagjmt9[address] [place], [address] Absolute Lymph 1.47 {X10_3/ul} (Normal) Range: [...] 4.2-5.4 WBC 4.7 K/mm3 (Normal) Range: 4.4-11.0 67-Srh-73694:40 Comprehensive Metabolic Profil Comments: [facility] Erqrmokfwg4217 [place], [place], [address] GAP 13 (Normal) Range: 5-15 CO2 24.0 [...] per A.D.A. criteria. :49 HgA1C , Office (54184) HgA1C , Office 7.8 % (Abnormal) Range: 4.6 - 7.1 35-Loo-608153:09 CBC W/Diff, Automated Comments: [facility] Oplbkmhacp8617 [place], [address] Absolute Lymph 1.07 {X10_3/ul} (Normal) Range: 0.83-4.51 [...] 4.2-5.4 WBC 5.3 K/mm3 (Normal) Range: 4.4-11.0 48-Odm-794821:09 Comprehensive Metabolic Profil Comments: [facility] Qnunsalzve4[address] [place], [place], [address] GAP 7 (Normal) Range: 5-15 CO2 28.0 [...] 200 mg/dLsuggests DIABETES MELLITUS per A.D.A. criteria. 3-Xnr-454270:42 CBC W/Diff, Automated Comments: At [facility] Out[facility] Medical Oncologypatients receive CBC w/auto Differential ONLY. Physicianwill place an order for a manual differential or Pathologistreview at his discretion. [facility] OUTPATIENT [facility]. [address] [place] [address] [place] [address] GEOLOGICAL TECHNICIAN: MATEO CASTANEDA DO PH:[phone] performed at:[facility] [address] [place] [address] Absolute Lymph 1.60 {X10_3/ul} (Normal) Range: 0.83-4.51 [...] 4.2-5.4 WBC 7.0 K/mm3 (Normal) Range: 4.4-11.0 0-Bco-188213:42 Comprehensive Metabolic Profil Comments: Serial Specimen #1, #2 or #3? 1Test performed at:[facility] Mdhwodnxnu98[address] [place], [place] [address] GAP 9 (Normal) Range: 5-15 CO2 25.0 [...] Comments: Please note revised CREATININE reference range agqaztjdb92/22/2015. BUN 20 mg/dL (Abnormal) Range: 7-18 GLU 118 mg/dL (Abnormal) Range: 70-110 Comments: Fasting Glucose result from 110 to <126 mg/dLsuggests IMPAIRED HOMEOSTASIS per A.D.A. criteria. 2-Vjc-414957:42 LDH 133 U/L (Normal) Comments: Serial Specimen #1, #2 or #3? 1Test performed at:[facility] Mjewrilwkx30[address] [place], [place] [address] Range: 84-246 0-Ztb-385656:42 Uric Acid Comments: Serial Specimen #1, #2 or #3? 1Test performed at:[facility] Isfqsoeevw4158 [place] [address] URIC 4.6 mg/dL (Normal) Range: 2.6-6.0 :02 CBC W/Diff, Automated Comments: Test performed at:[facility] Jeqjqflkgu4308 [place] [address] ; handled by vicki Absolute Lymph 1.23 [...] 4.2-5.4 WBC 4.1 K/mm3 (Abnormal) Range: 4.4-11.0 :02 Comprehensive Metabolic Profil Comments: Test performed at:[facility] Eslrgywyyv5790 [place] [address] GAP 12 (Normal) Range: 5-15 CO2 23.0 [...] Comments: Please note revised CREATININE reference range ibyxclruz50/22/2015. BUN 11 mg/dL (Normal) Range: 7-18 GLU 214 mg/dL (Abnormal) Range: 70-110 Comments: Glucose result greater than or equal to 200 mg/dLsuggests DIABETES MELLITUS per A.D.A. criteria. 47-Fay-916118:49 VITAMIN B-12 (CYANOCOBALAMIN) Comments: PATIENT NOT FASTINGPERFORMED BY: [facility] Stcovs1903 [facility] [employer] TechnologiesFormerly [facility] [id number] (34855) Vitamin B12 464 pg/mL (Normal) Range: 211-946 19-Hhs-558150:49 Vitamin D Hydroxy (52924) Comments: PATIENT NOT FASTINGPERFORMED BY: [facility] Sjsdjr0589 [facility] [id number] Vitamin D, 25-Hydroxy 11.5 ng/mL (Abnormal) Range: 30.0-100.0 Comments: Vitamin D deficiency has been defined by the [place] ofMedicine and an Endocrine Society practice guideline as alevel of serum 25-OH vitamin D less than 20 ng/mL (1,2).The Endocrine Society went on to further define vitamin Dinsufficiency as a level between 21 and 29 ng/mL (2).1. IOM ([place] of Medicine). 2010. Dietary reference intakes for calcium and D. [place]: The National Academies Press.2. Sami MF, Sophie MOORE, Xiomara LARES, et al. Evaluation, treatment, and prevention of vitamin D deficiency: an Endocrine Society clinical practice guideline. JCEM. 2010; 96(7):1911-30. 26-Fie-381546:49 CBC W/AUTO DIFF WBC Comments: PATIENT NOT FASTINGPERFORMED BY: [facility]CoKessler Institute for RehabilitationFizktw3730 [facility] [id number] Information: [id number] (31607) Immature Grans (Abs) 0.0 {x10E3/uL} (Normal) Range: [...] 3.77-5.28 WBC 6.1 {x10E3/uL} (Normal) Range: 3.4-10.8 29-Rrl-699707:28 URINE GENESIS CULTURE-NITA COL Comments: PATIENT NOT FASTINGPERFORMED BY: [facility] Barmkp2874 [facility] [id number] Information: SRC:[facility] [id number] COUNT (07061) Antimicrobial MIHEAD (Normal) Comments: S = Susceptible; [...] Imipenem Meropenem Urine Final report (Abnormal) Culture,Comprehensive 52-Wdz-559977:24 Urinalysis, Office (05369) UA - LEUKOCYTE ESTERASE Trace (Normal) UA [...] Glucose Comments: Test performed at:[facility] Llsbusniee76[address] [place] [address] BEDSIDE GLU 129 mg/dL (Abnormal) Range: 70-110 Comments: MANAGEMENT OF PATIENT CARE PER NURSING PROTOCOL 31-Mar-20159:47 Urinalysis, Office (69436) UA - LEUKOCYTE ESTERASE Trace (Normal) UA - NITRITE Negative (Normal) URINE UROBILINGN NITA TIMED 2 mg/dL (Normal) UA - PROTEIN 300 mg/dL (Normal) UA - PH 6.0 (Normal) UA - BLOOD Hemolyzed Large (Normal) UA - SPECIFIC GRAVITY 1.030 (Abnormal) UA - KETONES 15 mg/dL (Abnormal) UA - BILIRUBIN Moderate (Normal) UA - GLUCOSE Negative (Normal) 60-Iwb-921040:57 Basic Metabolic Profile (BMP) Comments: Test performed at:[facility] Lwczsdofdx[address] [place], [place] [address] GAP 11 (Normal) Range: 5-15 CO2 27.0 [...] 126 mg/dLsuggests DIABETES MELLITUS per A.D.A. criteria. 33-Rwa-922427:57 Digoxin Level Comments: Test performed at:[facility] Bmlwbcselx9834 [address] [place], [place] [address] DIG 1.17 ng/mL (Normal) Range: 0.80-2.00 [id number] Hemoglobin A1c Comments: Test performed at:[facility] [address] [place] [address] HGB A1C 7.0 % (Abnormal) Range: 4.2-6.3 [id number] Thyroid Stim Hormone (TSH) Comments: Test performed at:[facility] [address] [place] [address] TSH 0.89 {uIU/mL} (Normal) Range: 0.358-3.74 [id number] Urine Culture,Comprehensive Comments: PATIENT NOT FASTINGPERFORMED BY: [facility] [id number] [facility] [id number] Information: SRC:[facility] [id number] Result 1 BETAGB (Abnormal) Comments: Beta hemolytic [...] Obtained? CLEAN CATCHTest performed at:[facility] [id number] [place] [address] AMORPHOUS 1+ URATE (Normal) MUCUS, [...] 28-Feb-20153:55 CBC W/Diff, Automated Comments: Test performed at:[facility] [address] [place] [address] Absolute Lymph 1.29 {X10_3/ul} (Normal) Range: 0.83-4.51 [...] Profil Comments: Test performed at:[facility] Vrcewbbazj7706 [facility]. [place], [place] [id number] GAP 10 (Normal) Range: 5-15 CO2 26.0 [...] Lipase Comments: Test performed at:[facility] [address] [place] [address] LIPASE 142 U/L (Normal) Range: 70-290 5-Ztd-852474:40 HgA1C , Office (39962) HgA1C , Office 7.4 % (Abnormal) Range: 4.6 - 7.1 :03 CBC W/Diff, Automated Comments: Test performed at:[facility] [address] [place] [address] Absolute Lymph 1.31 {X10_3/ul} (Normal) [...] 4.2-5.4 WBC 5.1 K/mm3 (Normal) Range: 4.4-11.0 :03 Comprehensive Metabolic Profil Comments: Test performed at:[facility] [address] [place], [place] [id number] GAP 11 (Normal) Range: 5-15 CO2 26.0 [...] 126 mg/dLsuggests DIABETES MELLITUS per A.D.A. criteria. 46-Civ-297984:00 Culture, Urine Comments: Test performed at:[facility] [address] [place] [address] CUUR See Note (Normal) Comments: Urine CultureORGANISM 1: Streptococcus agalactiae (B)Griffin Count 1000-10,000 Streptococcus agalactiae (B): REACTION Ampicillin $ <=0.25 S Benzylpenicillin NF <=0.06 S Ceftriaxone (other dx) $ <=0.12 S Inducable Clindamycin Resistan - Linezolid $$$$ <=2 S Vancomycin $ 0.5 S(NF) indicates non-formulary drug at [facility]. Approval by Infectious Disease Specialist required before non-formulary drugs may be ordered and/or dispensed. * CLSI guidelines does not recommend testing of cephalosporins. This interpretation is deduced from Beta-lactam/penicillin results.; ADDENDA: handled by edvin :32 CBC W/Diff, Auto - EPLAB Only Comments: At [facility] Outpatient [facility], [facility] patientsreceive CBC w/auto Differential ONLY. Physician will placean order for a manual differential or Pathologist review athis discretion. [facility] OUTPATIENT [facility]. [address] [place] [address] GEOLOGICAL TECHNICIAN: MATEO CASTANEDA DO PH:[phone] performed at:[facility] [address] [place], [place] [id number] ; Richie Absolute Neut 2.7 {X10_3/uL} (Normal) [...] or #3? 1Test performed at:[facility] [address] [place], [place] [id number] Range: 87-241 Comments: ADDENDA: richie :34 TSH (10089) Comments: PATIENT WAS FASTINGPERFORMED BY: CB [facility] Dbkkll0078 [facility] [id number] TSH 1.240 {uIU/mL} (Normal) Range: 0.450-4.500 :34 LIPID PANEL (49370) Comments: PATIENT WAS FASTINGPERFORMED BY: [facility]6370 [facility] [id number] LDL/HDL Ratio 2.6 {ratio_units} (Normal) Range: 0.0-3.2 [...] CREATININE RATIO Comments: PATIENT WAS FASTINGPERFORMED BY: [facility]6370 [facility] [id number]; non- emergent till apt tomorrow (41090) AND (93140) Microalb/Creat Ratio 14.8 {mg/g_creat} (Normal) Range: 0.0-30.0 Microalbumin, Urine 44.5 ug/mL (Abnormal) Range: 0.0-17.0 Creatinine, Urine 301.0 mg/dL (Abnormal) Range: 15.0-278.0 :34 METABOLIC PANEL, Comments: PATIENT WAS FASTINGPERFORMED BY: [place] [id number] [facility] [id number] Information: [id number] COMPREHENSIVE (02976) ALT (SGPT) 21 [iU]/L (Normal) Range: 0-32 [...] Glucose, Serum 161 mg/dL (Abnormal) Range: 65-99 6-Xfd-237371:10 HgA1C , Office (07065) HgA1C , Office 7.2 % (Abnormal) Range: 4.6 - 7.1 67-Wvw-288820:47 CBC W/Diff, Automated Comments: Test performed at:[facility] [address] [place] [address] ; Handled by Vicki Absolute Lymph 1.43 [...] 4.2-5.4 WBC 5.4 K/mm3 (Normal) Range: 4.4-11.0 05-Gpl-015064:47 Comprehensive Metabolic Profil Comments: Test performed at:[facility] [address] [place], [place] [address] GAP 6 (Normal) Range: 5-15 CO2 30.0 [...] Microscopic Examination Comments: PATIENT NOT FASTINGPERFORMED BY: [employer]70 LieferheldFormerly [facility] [id number] Bacteria Few (Normal) Mucus Threads Present (Normal) Epithelial Cells (non renal) 0-10 {/hpf} (Normal) Range: 0 - 10 RBC 0-2 {/hpf} (Normal) Range: 0 - 2 WBC >30 {/hpf} (Abnormal) Range: 0 - 5 :01 Urinalysis, Routine Comments: PATIENT NOT FASTINGPERFORMED BY: Kle[facility]ail6370 LieferheldFormerly [facility] [id number] Microscopic Examination See below: (Normal) Comments: Microscopic was indicated and was performed. Nitrite, Urine Negative (Normal) Urobilinogen,Semi-Qn 0.2 mg/dL (Normal) Range: 0.0-1.9 Bilirubin Negative (Normal) Occult Blood Negative (Normal) Ketones Trace (Abnormal) Glucose Negative (Normal) Protein 1+ (Abnormal) WBC Esterase 3+ (Abnormal) Appearance Turbid (Abnormal) Urine-Color Yellow (Normal) pH 6.0 (Normal) Range: 5.0-7.5 Specific Carlin 1.030 (Normal) Range: 1.005-1.030 87-Vyj-385830:18 CBCD ALC 1.30 {X10_3/ul} (Normal) Range: 0.83-4.51 [...] 4.2-5.4 WBC 4.5 K/mm3 (Normal) Range: 4.4-11.0 31-Xms-127280:18 CMP GAP 7 (Normal) Range: 5-15 CO2 [...] mg/dLsuggests DIABETES MELLITUS per A.D.A. criteria. :01 UJXIG-BMHTDZBPYVX-WAJYS (33832) Comments: PATIENT NOT FASTINGPERFORMED BY: [place] [id number] [facility] [id number] AFP, Serum, Tumor Marker 7.1 ng/mL (Normal) Range: 0.0-8.3 Comments: Khanh ECLIA methodology :01 PTT (Activated Partial Comments: PATIENT NOT FASTINGPERFORMED BY: [facility]6370 [facility] [id number] Thromboplastin Time) (79048) aPTT 25 {sec} (Normal) Range: 24-33 Comments: This test has not been validated for monitoring unfractionated heparintherapy. aPTT-based therapeutic ranges for unfractionated heparintherapy have not been established. For general guidelines onHeparin monitoring, refer to the [facility] Directory of Services. :01 PT (Prothrobim Time) (63407) Comments: PATIENT NOT FASTINGPERFORMED BY: [facility]6370 [facility] [id number] Prothrombin Time 10.4 {sec} (Normal) Range: 9.1-12.0 INR 1.0 (Normal) Range: 0.8-1.2 Comments: Reference interval is for non-anticoagulated patients. . Suggested INR therapeutic range for Vitamin K anta gonist therapy: Standard Dose (moderate intensity therapeutic range): 2.0 - 3.0 Higher intensity therapeutic range 2.5 - 3.5 :01 TSH (25720) Comments: PATIENT NOT FASTINGPERFORMED BY: [employer]6370 [facility] [id number] TSH 1.450 {uIU/mL} (Normal) Range: 0.450-4.500 :01 CBC W/AUTO DIFF WBC Comments: PATIENT NOT FASTINGPERFORMED BY: REINALDO [employer] Ybirmj0348 [facility] [id number] Information: [id number] (04744) Immature Grans (Abs) 0.0 {x10E3/uL} (Normal) Range: [...] CREATININE RATIO Comments: PATIENT NOT FASTINGPERFORMED BY: [facility] for RehabilitationZnrkky9127 [facility] [id number] (57337) AND (66539) Microalb/Creat Ratio 26.4 {mg/g_creat} (Normal) Range: 0.0-30.0 Microalbumin, Urine 96.0 ug/mL (Abnormal) Range: 0.0-17.0 Creatinine, Urine 364.2 mg/dL (Abnormal) Range: 15.0-278.0 30-Sep-20148:01 METABOLIC PANEL, COMPREHENSIVE Comments: PATIENT NOT FASTINGPERFORMED BY: [facility] for RehabilitationKblwmk3618 [facility] [id number] (16582) ALT (SGPT) 19 [iU]/L (Normal) Range: 0-32 [...] mg/dL (Abnormal) Range: 65-99 :01 LIPID PANEL (32849) Comments: PATIENT NOT FASTINGPERFORMED BY: [facility] for RehabilitationKmyfaq7302 [facility] [id number] LDL/HDL Ratio 2.1 {ratio_units} (Normal) Range: 0.0-3.2 [...] (Normal) Range: 100-199 :19 HgA1C , Office (47004) HgA1C , Office 6.3 % (Normal) Range: [...] 4.2-5.4 WBC 5.3 K/mm3 (Normal) Range: 4.4-11.0 3-Dra-643805:07 CBCD ALC 1.71 {X10_3/ul} (Normal) Range: 0.83-4.51 [...] 4.2-5.4 WBC 7.0 K/mm3 (Normal) Range: 4.4-11.0 0-Cud-663916:07 CMP GAP 7 (Normal) Range: 5-15 CO2 [...] 7-18 GLU 102 mg/dL (Normal) Range: 70-110 17-Iwl-14777:59 Anaerobic & Aerobic Comments: PATIENT NOT FASTINGPERFORMED BY: [facility] Zfxovk8852 [facility] [id number] Information: SRC:EMIL [id number] RIGHT EYE Culture (19440) Antimicrobial MIHEAD (Normal) Comments: S = Susceptible; [...] hours. Anaerobic Culture Final report (Normal) :57 [id number]-[id number]-QDKCT (21142) Comments: PATIENT WAS FASTINGPERFORMED BY: [facility]6370 [facility] [id number] AFP, Serum, Tumor Marker 9.2 ng/mL (Abnormal) Range: 0.0-8.3 Comments: Khanh ECLIA methodology :57 PTT (Activated Partial Comments: PATIENT WAS FASTINGPERFORMED BY: [facility]6370 [facility] [id number] Thromboplastin Time) (76092) aPTT 26 {sec} (Normal) Range: 24-33 Comments: This test has not been validated for monitoring unfractionated heparintherapy. aPTT-based therapeutic ranges for unfractionated heparintherapy have not been established. For general guidelines onHeparin monitoring, refer to the [facility] Directory of Services. :57 PT (Prothrobim Time) (39680) Comments: PATIENT WAS FASTINGPERFORMED BY: [facility]6370 [facility] [id number] Prothrombin Time 10.5 {sec} (Normal) Range: 9.1-12.0 INR 1.0 (Normal) Range: 0.8-1.2 Comments: Reference interval is for non-anticoagulated patients. . Suggested INR therapeutic range for Vitamin K anta gonist therapy: Standard Dose (moderate intensity therapeutic range): 2.0 - 3.0 Higher intensity therapeutic range 2.5 - 3.5 :57 TSH (35515) Comments: PATIENT WAS FASTINGPERFORMED BY: [facility] Ncjlvg0263 [facility] [id number] TSH 3.200 {uIU/mL} (Normal) Range: 0.450-4.500 :57 CBC WITH MANUAL DIFF Comments: PATIENT WAS FASTINGPERFORMED BY: [facility]CoK[facility] for RehabilitationObalre0884 [facility] [id number] Information: [id number] (64766) Immature Grans (Abs) 0.0 {x10E3/uL} (Normal) Range: [...] PANEL, COMPREHENSIVE Comments: PATIENT WAS FASTINGPERFORMED BY: [facility] Hutlkc2930 [facility] [id number] (04643) ALT (SGPT) 15 [iU]/L (Normal) Range: 0-32 [...] Glucose, Serum 125 mg/dL (Abnormal) Range: 65-99 94-Yzw-522471:29 HgA1C , Office (24960) HgA1C , Office 5.4 % (Normal) Range: [...] CHOL 150 mg/dL (Normal) Comments: <200 mg/dL Dehairmkr188-167 mg/dL Borderline>240 mg/dL High Risk :50 HgA1C , Office (14634) HgA1C , Office 5.8 % (Normal) Range: 4.6 - 7.1 53-Lvc-31513:27 BILAT SCRN DIGITAL & CAD Radiology Report [...] be sent to the patient by the doctors medical center within 30 days. Approximately 10% of breast cancers are not detected by mammography. Anormal mammogram should not delay biopsy of a clinically suspiciousabnormality. Signed:Mele Santiago [facility] 2012 at 9:19:01 AM [phone] Signed GP/GP If you are the referring physician and would like to consult with theradiologist who provided this interpretation, please herbie Bonilla M.D. at [phone]. If this radiologist is unavailable, youwill be directed to another radiologist to assist. If you are a patient with a question regarding this report, pleaseco ntactyour referring physician directly. Professional Interpretation Provided By: Freda Phone , These documents contain legally protected [...] on 06/15/13920 Sign by: Prashant Delgadillo MD 74-Bar-08912:27 THYROID Radiology Report See Note Comments: STUDY: [...] Delgadillo M.D.June 15, 2013 at 2:56:26 PM [phone] 8Electronically Signed GP/GP If you are the referring physician and would like to consult with theradiologist who provided this interpretation, please contact Sarmad Bonilla at [phone]. If this radiologist is unavailable, youwill be directed to another radiologist to assist. If you are a patient with a question regarding this report, pleasecontactyour referring physician directly. Linda sional Interpretation Provided By: [employer], Phone , These documents contain legally protected [...] KING,Stanislavranscribed on 1732 by ITS IMPORTSign by Prashant Delgadillo MD on 06/15/13 1733 Sign by: Prashant Delgadillo MD 9-Anx-934877:18 URINE GENESIS CULTURE-NITA COL Comments: PATIENT NOT FASTINGPERFORMED BY: [facility] Vnuiqs7431 [facility] [id number] Information: SRC: [id number] COUNT (74905) Antimicrobial MIHEAD (Normal) Comments: S = Susceptible; [...] primarily for treating urinary tract infections. (CLSI, X222-O31,2009) Urine Culture,Comprehensive Final report (Normal) 04-Jun-20138:48 Urinalysis, Office (24243) UA - LEUKOCYTE ESTERASE Large (Normal) UA - NITRITE Positive (Normal) URINE UROBILINGN NITA TIMED 2 mg/dL (Normal) UA - PROTEIN Negative mg/dL (Normal) UA - BLOOD Negative (Normal) UA - KETONES Moderate mg/dL (Normal) UA - BILIRUBIN Moderate (Normal) UA - GLUCOSE Small mg/dL (Normal) 08-Vuj-36926:06 MICROALBUMIN: CREATININE RATIO Comments: PATIENT WAS FASTINGPERFORMED BY: [facility]6370 [facility] [id number] (33066) AND (96595) Microalb/Creat Ratio 27.4 {mg/g_creat} (Normal) Range: 0.0-30.0 Microalbumin, Urine 85.2 ug/mL (Abnormal) Range: 0.0-17.0 Creatinine, Urine 311.1 mg/dL (Abnormal) Range: 15.0-278.0 28-Bma-58407:06 METABOLIC PANEL, Comments: PATIENT WAS FASTINGPERFORMED BY: [facility]6370 [facility] [id number] Information: ADD [id number] AND DRAW FEE 99 1028 COMPREHENSIVE (55105) ALT (SGPT) 29 [iU]/L (Normal) Range: 0-32 [...] Glucose, Serum 76 mg/dL (Normal) Range: 65-99 84-Ipw-79932:06 TSH (75591) Comments: PATIENT WAS FASTINGPERFORMED BY: [facility]CoK[facility] Institute for RehabilitationRixdoa7731 [facility] [id number] TSH 3.040 {uIU/mL} (Normal) Range: 0.450-4.500 52-Vsw-54305:06 LIPID PANEL (19442) Comments: PATIENT WAS FASTINGPERFORMED BY: [facility]6370 [facility] [id number] LDL/HDL Ratio 2.4 {ratio_units} (Normal) Range: 0.0-3.2 HDL Cholesterol 55 mg/dL (Normal) Comments: According to ATP-III Guidelines, HDL-C >59 mg/dL is considered anegative risk factor for CHD. LDL Cholesterol Calc 134 mg/dL (Abnormal) Range: 0-99 VLDL Cholesterol Ramandeep 18 mg/dL (Normal) Range: 5-40 Cholesterol, Total 207 mg/dL (Abnormal) Range: 100-199 Triglycerides 89 mg/dL (Normal) Range: 0-149 :06 UPNYX-WUVJVCPUTKZ-JGOFI (23882) Comments: PATIENT WAS FASTINGPERFORMED BY: [place] [id number] [facility] [id number] AFP, Serum, Tumor Marker 5.4 ng/mL (Normal) Range: 0.0-8.3 Comments: Khanh ECLIA methodology :06 PTT (Activated Partial Comments: PATIENT WAS FASTINGPERFORMED BY: [facility]6370 [facility] [id number] Thromboplastin Time) (42311) aPTT 27 {sec} (Normal) Range: 24-33 Comments: This test has not been validated for monitoring unfractionated heparintherapy. aPTT-based therapeutic ranges for unfractionated heparintherapy have not been established. For general guidelines onHeparin monitoring, refer to the [facility] Directory of Services. :06 PT (Prothrobim Time) (33750) Comments: PATIENT WAS FASTINGPERFORMED BY: [facility]6370 [facility] [id number] INR 1.1 (Normal) Range: 0.8-1.2 Comments: Reference interval is for non-anticoagulated patients. . Suggested INR therapeutic range for Vitamin K anta gonist therapy: Standard Dose (moderate intensity therapeutic range): 2.0 - 3.0 Higher intensity therapeutic range 2.5 - 3.5 Prothrombin Time 11.0 {sec} (Normal) Range: 9.1-12.0 :51 HgA1C , Office (75917) HgA1C , Office 5.0 % (Normal) Range: [...] mg/dL (Normal) Range: 70-110 :03 Rapid Flu (81880 x 2) Influenza A Ag positive b (Normal) :27 METABOLIC PANEL, COMPREHENSIVE Comments: PATIENT WAS FASTINGPERFORMED BY: [facility] for RehabilitationMohphy1664 [facility] [id number] (41109) ALT (SGPT) 25 [iU]/L (Normal) Range: 0-32 [...] mg/dL (Normal) Range: 65-99 :27 LIPID PANEL (52469) Comments: PATIENT WAS FASTINGPERFORMED BY: [facility]worldNew [facility] Treatment CenterYpcrws0816 [facility] [id number] LDL/HDL Ratio 0.9 {ratio_units} (Normal) Range: 0.0-3.2 LDL Cholesterol Calc 29 mg/dL (Normal) Range: 0-99 VLDL Cholesterol Ramandeep 17 mg/dL (Normal) Range: 5-40 HDL Cholesterol 32 mg/dL (Abnormal) Comments: According to ATP-III Guidelines, HDL-C >59 mg/dL is considered anegative risk factor for CHD. Cholesterol, Total 78 mg/dL (Abnormal) Range: 100-199 Triglycerides 84 mg/dL (Normal) Range: 0-149 :27 TSH (63203) Comments: PATIENT WAS FASTINGPERFORMED BY: [facility]worldK[facility]ler Institute for RehabilitationSebzyz2524 [facility] [id number] TSH 3.990 {uIU/mL} (Normal) Range: 0.450-4.500 :27 CBC WITH MANUAL DIFF Comments: PATIENT WAS FASTINGPERFORMED BY: [facility]worldK[facility] Institute for RehabilitationThqfpw2358 [facility] [id number] Information: [id number] (84812) Immature Grans (Abs) 0.0 {x10E3/uL} Range: 0.0-0.1 [...] Comments: Khanh ECLIA methodologyPerformed at: - [facility] [address] [id number] Director: Manuelito Mendez PhD, Phone: [phone] 75-Kan-96935:39 CBCMD ANC 2.4 3/uL (Normal) Range: 2.0-7.7 [...] CHOL 130 mg/dL (Normal) Comments: <200 mg/dL Vuyqickte502-502 mg/dL Borderline>240 mg/dL High Risk :39 MIACRE tMICROCREAT 16.5 {mg/g_CRE} (Normal) MIALB 23.3 mg/L (Normal) CREU 141.0 mg/dL (Normal) :39 PT INR 1.1 (Normal) PTP 13.6 s (Normal) Range: 11.9-14.4 :39 PTT PTTP 29.5 s (Normal) Range: 24.1-36.2 :17 Rapid Flu (31884 x 2) Influenza A Ag neg (Normal) :29 HgA1C , Office (35103) HgA1C , Office 5.9 % (Normal) Range: 4.6 - 7.1 :53 FT3 2.9 pg/mL (Normal) Range: 2.18-3.98 :53 T4F 1.26 ng/dL (Normal) Range: 0.76-1.46 :53 TPO 8 {IU/mL} (Normal) Range: 0-34 Comments: Performed at: [facility] [id number] Director: Codi Robles MD, Phone: [phone] :[phone] TSH 1.23 {uIU/mL} (Normal) Range: 0.358-3.74 :04 HgA1C , Office (74867) HgA1C , Office 5.8 % (Normal) Range: 4.6 - 7.1 :26 CBCMD Comments: ORDERED TSH LIPID CMP CBCMD [facility]JAC[facility]DA ORDERED VITD CMP CBCD RBCM NORM C+C [...] CMP Comments: ORDERED TSH LIPID CMP CBCMD [facility]DA ORDERED VITD CMP CBCD GAP 8 (Normal) [...] :26 LIPID Comments: ORDERED TSH LIPID CMP [facility]DA ORDERED VITD CMP CBCD VLDL 21 [...] {uIU/mL} (Normal) Comments: ORDERED TSH LIPID CMP [facility] ORDERED VITD CMP CBCD Range: 0.358-3.74 :26 VITD 44.8 ng/mL (Normal) Comments: ORDERED TSH LIPID CMP [facility] EN[facility] ORDERED VITD CMP CBCD Range: 30.0-100.0 Comments: Vitamin D deficiency has been defined by the [place] ofMedicine and an Endocrine Society practice guideline as alevel of serum 25-OH vitamin D less than 20 ng/mL (1,2).The Endocrine Society went on to further define vitamin Dinsufficiency as a level between 21 and 29 ng/mL (2).1. IOM ([place] of Medicine). 2010. Dietary reference intakes for calcium and D. [place]: The National Academies Press.2. Sami MF, Sophie NC, Xiomara LARES, et al. Evaluation, treatment, and prevention of vitamin D deficiency: an Endocrine Society clinical practice guideline. JCEM. 2010; 96(7): 1911-30.Performed at: [address] [id number] Director: Codi Robles MD, Phone: [phone] 27-Jan-20128:02 BILAT SCRN DIGITAL & CAD Radiology [...] Signed GP/GP Professional Interpretat ion Provided By: [employer] [facility], , To consult with a radiologist regarding this report, please call our 03O2txebgwq line @ Ryann louise on 01/27/12 0813 by Faustina KING,ArnaldorieleTranscribed on 01/27/12 0950 by ITS IMPORTSign by Prashant Delgadillo MD on 01/27/12 0951 Sign by: Prashant Delgadillo MD 65-Qxz-275764:24 HgA1C , Office (00530) HgA1C , Office 5.7 % (Normal) Range: 4.6 - 7.1 54-Kti-010312:24 Blood Glucose , Office (98600) Blood Glucose , Office 89 (Normal) 59-Rir-192196:31 Urinalysis, Office (78127) UA - LEUKOCYTE ESTERASE Small (Normal) UA - NITRITE Positive (Normal) URINE UROBILINGN NITA TIMED Normal mg/dL (Normal) UA - PROTEIN 300 mg/dL (Normal) UA - PH 6.0 (Normal) UA - SPECIFIC GRAVITY 1.025 (Normal) UA - KETONES Small mg/dL (Normal) UA - BILIRUBIN Moderate (Normal) UA - GLUCOSE Negative (Normal) :15 HgA1C , Office (53408) HgA1C , Office 6.8 % (Normal) Range: 4.6 - 7.1 :15 Blood Glucose , Office (03739) Blood Glucose , Office 162 (Normal) 11-Bwf-152122:22 THYROID Radiology Report See Note (Normal) Comments: [...] COL Comments: PATIENT NOT FASTINGPERFORMED BY: [facility] Riigds8403 [facility] [id number] Information: SRC:URC [id number] COUNT (79237) Antimicrobial MIHEAD (Normal) Comments: S = Susceptible; [...] Final report Culture,Comprehensive (Normal) :32 Urinalysis, Office (32669) UA - LEUKOCYTE ESTERASE Moderate (Normal) URINE UROBILINGN NITA TIMED Normal mg/dL (Normal) UA - PROTEIN 100 mg/dL (Normal) UA - PH 6.0 (Normal) UA - BLOOD Hemolyzed Large (Normal) UA - SPECIFIC GRAVITY 1.025 (Normal) UA - KETONES Negative mg/dL (Normal) UA - BILIRUBIN Negative (Normal) UA - GLUCOSE Negative (Normal) :28 Blood Glucose , Office (20875) Blood Glucose , Office 223 (Normal) :10 Urinalysis, Office (43267) UA - BILIRUBIN Small (Normal) UA - BLOOD Hemolyzed Large (Normal) UA - GLUCOSE Small (Normal) Comments: 100 UA - KETONES Negative mg/dL (Normal) UA - LEUKOCYTE ESTERASE Trace (Normal) UA - NITRITE Positive (Normal) UA - PH 5.0 (Normal) UA - PROTEIN 300 mg/dL (Normal) UA - SPECIFIC GRAVITY 1.020 (Normal) URINE UROBILINGN NITA TIMED 2 mg/dL (Normal) 0-Mpr-759602:29 URINE GENESIS CULTURE-NITA COL Comments: PATIENT NOT FASTINGPERFORMED BY: [facility] Balhab7803 [facility] [id number] Information: SRC:UR [id number] COUNT (53853) Antimicrobial MIHEAD (Normal) Comments: S = Susceptible; [...] mL (Normal) Urine Final report (Normal) Culture,Comprehensive 1-Bss-383748:31 Urinalysis, Office (12600) UA - BILIRUBIN Large (Normal) UA - [...] (Abnormal) Range: 0.358-3.74 :28 HgA1C , Office (88575) HgA1C , Office 8.3 % (Abnormal) Range: 4.6 - 7.1 :28 Blood Glucose , Office (16569) Blood Glucose , Office 176 (Normal) :24 [...] 200-240 mg/dL Borderline >240 mg/dL High Risk 21-Lkf-877724:54 BRAIN/HEAD W/WO CONTRAST Radiology See Note Comments: [...] scan of the brain. Dictated on 10/13/10 140 by Stanislav Delgadillo MDranscribed on 10/13/101457 by [...] bone. These are unchanged. Dictated on 10/14/10 0856 by Faustina KING,ArnaldorieleTranscribed on 10/14/10 0856 by ITS IMPORTSign by Faustina KING,Prashant on 02/09/11 1702 Sign by: Prashant Delgadillo MD :44 HgA1C , Office (74112) HgA1C , Office 7.4 % (Abnormal) Range: 4.6 - 7.1 :44 Blood Glucose , Office (14103) Blood Glucose , Office 206 (Normal) :37 [...] Report See Note (Normal) Comments: Exam Number: [id number] AMMOGRAPHY - BILATERAL SCREENING INDICATION:Routine annual screening [...] attaching a ResultCode to this exam. ADDENDUM: [id number] HPBI/MDS Reported By: PRASHANT DELGADILLO :14 HgA1C , Office (53328) HgA1C , Office 7.0 % (Normal) Range: 4.6 - 7.1 :14 Blood Glucose , Office (30002) Blood Glucose , Office 164 (Normal) :30 LASHA DIR SEMI-QL LASHA DIRECT 24 AU/mL (Normal) :30 ANTI-dsDNA AB 10 {IU/mL} (Normal) :30 TSH 6.39 {uIU/mL} (Abnormal) Range: 0.358-3.74 46-Dks-820283:35 C-REACTIVE PROTEIN (14291) Comments: PATIENT NOT FASTINGPERFORMED BY: CB [facility] [id number] [facility] [id number] C-Reactive Protein, Quant 6.5 mg/L (Abnormal) Range: 0.0-4.9 73-Pdr-501350:35 SED RATE ERYTHROCYTE (76080) Comments: PATIENT NOT FASTINGPERFORMED BY: [facility] [id number] [facility] [id number] Sedimentation Rate-Westergren 14 mm/h (Normal) Range: 0-20 80-Baw-843252:35 RHEUMATOID FACTOR-QUANT (77548) Comments: PATIENT NOT FASTINGPERFORMED BY: [facility] [place]6[facility] [id number] RA Latex Turbid. 7.6 {IU/mL} (Normal) Range: 0.0-13.9 47-Urc-009263:35 LASHA (ANTINUCLEAR ANTIBODY) Comments: PATIENT NOT FASTINGPERFORMED BY: [facility] [place] [id number] (88230) LASHA Direct Positive (Abnormal) 16-Mad-677082:35 T3, FREE (TRIDOTHYRONINE) (54666) Comments: PATIENT NOT FASTINGPERFORMED BY: [facility] [id number] Triiodothyronine,Free,Serum 2.8 pg/mL (Normal) Range: 2.0-4.4 :35 T4, FREE (THYROXINE) (13687) Comments: PATIENT NOT FASTINGPERFORMED BY: [facility]6370 [facility] [id number] T4,Free(Direct) 0.76 ng/dL (Abnormal) Range: 0.82-1.77 81-Pxc-159116:35 Anti-TPO Antibody (39221) Comments: PATIENT NOT FASTINGPERFORMED BY: [facility] [place] [id number] Thyroid Peroxidase (TPO) Ab <6 {IU/mL} (Normal) Range: 0-34 06-Vln-797330:35 TSH (85080) Comments: PATIENT NOT FASTINGPERFORMED BY: [facility] [place]6[facility] [id number] TSH 5.630 {uIU/mL} (Abnormal) Range: 0.450-4.500 Comments: Please note reference interval change :35 METABOLIC PANEL, Comments: PATIENT NOT FASTINGPERFORMED BY: [facility]6370 [facility] [id number] Information: [id number] COMPREHENSIVE (88176) ALT (SGPT) 55 [iU]/L (Abnormal) Range: 0-40 [...] Glucose, Serum 151 mg/dL (Abnormal) Range: 65-99 22-Gfj-803607:02 GENESIS CULTURE-OTHER (16395) Comments: PATIENT NOT FASTINGPERFORMED BY: REINALDO [facility] Ekaaom2504 [facility] [id number] Information: SRC:THRT [id number] Result 1 Yeast isolated. (Normal) Comments: Moderate growthRequest for further identification must be madewithin 1 week. Upper Respiratory Culture Final report (Normal) 29-Iof-96138:37 Rapid Strep Test, Office (86202) Rapid Strep Test, Office Negative (Normal) 64-Jbm-903497:11 THYROID (HP) Radiology Report See Note (Normal) Comments: Exam Number: [id number] CLINICAL:This is a 45-year-old female patient with [...] CHOL 147 mg/dL (Normal) Comments: <200 mg/dL Urrzhfofy748-559 mg/dL Borderline>240 mg/dL High Risk HDL 32 [...] :41 TSH 4.85 {uIU/mL} (Abnormal) Range: 0.358-3.74 84-Ugj-347267:50 URINE GENESIS CULTURE-NITA COL Comments: PATIENT NOT FASTINGPERFORMED BY: [facility] [id number] [facility] [id number] Information: SRC:UR ADD [id number] COUNT (42654) Result 1 Klebsiella pneumoniae Comments: 1,000 Colonies/mL [...] STrimethoprim/Sulfa S Urine Final report (Normal) Culture,Comprehensive 03-Wfi-99660:55 Urinalysis, Office (49636) UA - LEUKOCYTE ESTERASE Small (Normal) UA - NITRITE Negative (Normal) URINE UROBILINGN NITA TIMED Normal mg/dL (Normal) UA - PROTEIN 30 mg/dL (Normal) UA - PH 6.0 (Normal) UA - BLOOD Negative (Normal) UA - SPECIFIC GRAVITY 1.020 (Normal) UA - KETONES Negative mg/dL (Normal) UA - BILIRUBIN Negative (Normal) UA - GLUCOSE Negative (Normal) 9-Tbg-621248:37 PET/CT,TUMOR,BASE-THIGH,SUBS Radiology Report See Note (Normal) Comments: Exam Number: [id number] EXAM: Body PET study Head to Mid [...] consistent with normal physiologic distribution of theradiopharmaceutical. (Maynoridil et al, Radiology 224:783, 2002). Enhanced radiopharmaceutical concentration demonstrated at the le velof the laryngeal structures, contiguous to the cricopharyngeusmusculature and cricoid cartilage is consistent with normalphysiologic distribution of the radiopharmaceutical. (Koffi etal, Journal of Nuclear Medicine 44:398P, 2003). w Reported By: ADELA MOLINA 7-Peu-819140:00 PRANEETH+ELPU24 3467 ALBUMIN,U 37.7 % (Normal) AYZWG-4-MWJQ,U 3.2 % (Normal) QBAYO-3-RDJL,U 7.6 % (Normal) BETA GLOB,U 23.1 % (Normal) GAMMA GLOB,U 28.5 % (Normal) PRANEETH RESULT,U Comment (Normal) Comments: No monoclonality detected. M-SPIKE,UR% SeeNote % (Normal) Comments: Result: Not Observed PROTEIN, U24 62.1 {mg/24_hr} Range: 30.0-150.0 (Normal) PROTEIN,UR 2.3 mg/dL (Normal) Range: 0.0-15.0 9-Nwu-822091:15 C-REACTIVE PROT < 2.90 mg/L (Normal) Range: 0.0-3.0 Comments: C-Reactive Protein (CRP) provides useful information for thediagnosis, therapy and monitoring of inflammatory processesand associated diseases. For the evaluation of Relative Riskfor Cardiovascular Dise ase, a High Sensitivity CRP (HSCRP)should be ordered. 9-Gys-147501:15 CBCD,SMEAR DIFF PLT EST SeeNote (Normal) Comments: [...] 4.2-5.4 WBC 4.3 K/mm3 (Abnormal) Range: 4.4-11.0 4-Iui-681822:15 COMP METABOLIC CL 104 mmol/L (Normal) Range: [...] <126 mg/dLsuggests IMPAIRED HOMEOSTASIS per A.D.A. criteria. 7-Fdx-810280:15 ESR SED RATE 11 mm/h (Normal) Range: 0-20 7-Uez-221622:15 LDH 197 U/L (Abnormal) Range: 100-190 0-Eoo-009841:15 LIPID HDL 30 mg/dL (Abnormal) Comments: Reference [...] CHOL 154 mg/dL (Normal) Comments: <200 mg/dL Wvxhqyryj037-612 mg/dL Borderline>240 mg/dL High Risk 1-Ddu-180536:15 PROT.[id number] NOTE Comment (Normal) Comments: Protein electrophoresis scan will follow via computer,mail, or machine design checker delivery.Performed at: [address] [id number] Director: Kamlesh Arana MD ALBUMIN,UR 54.2 % (Normal) FOQEY-6-XNQJ,U 1.2 % (Normal) ZXJIN-1-RKPT,U 9.4 % (Normal) BETA GLOB,U 23.4 % (Normal) GAMMA GLOB,U 11.8 % (Normal) M-SPIKE,U SeeNote % (Normal) Comments: Result: Not Observed PROTEIN,UR 13.6 mg/dL (Normal) Range: 0.0-15.0 3-Olh-358748:15 SPE 590802 A/G RATIO 1.8 (Normal) Range: 0.7-2.0 GLOBULIN, [...] electrophoresis scan will follow via computer,mail, or machine design checker delivery. M-SPIKE SeeNote g/dL (Normal) Comments: Result: Not Observed GAMMA GLOBULIN 0.4 g/dL (Abnormal) Range: 0.5-1.6 ALBUMIN 3.9 g/dL (Normal) Range: 3.2-5.6 ALPHA-1 GLOBUL 0.2 g/dL (Normal) Range: 0.1-0.4 ALPHA-2 GLOBUL 0.7 g/dL (Normal) Range: 0.4-1.2 BETA GLOBULIN 0.9 g/dL (Normal) Range: 0.6-1.3 PROTEIN,TOTAL 6.1 g/dL (Normal) Range: 6.0-8.5 83-Xml-379596:28 BRAIN/HEAD WITHOUT CONTRAST Radiology Report See Note (Normal) Comments: Exam Number: [id number] CT SCAN OF BRAIN HISTORYLytic lesion, lymphoma. Scans were obtained at 2.5-mm intervals through the posterior fossaand 5-mm intervals through the remainder of the brai n. [facility] entstudy is compared to the examination [...] for confirmation. Reported By: TRUE NAGEL M.D. 70-Lyv-004996:23 SPINE,CERVICAL WITHOUT CONTRAS Radiology Report See Note (Normal) Comments: Exam Number: [id number] CLINICAL:44 year old female with cervical radiculopathy. [...] tumor involvement. Reported By: SHARYN JASMINE M.D. 92-Eyq-542162:50 Blood Glucose , Office (50420) Blood Glucose , Office 105 (Normal) 98-Kgt-517120:50 HgA1C , Office (79713) HgA1C , Office 6.1 % (Normal) Range: 4.6 - 7.1 61-Lat-972887:24 URINE GENESIS CULTURE-NITA COL Comments: PATIENT NOT FASTINGPERFORMED BY: [facility] Rehabilitation[facility]xg[facility]4803 [facility] [id number] Information: SRC: [id number] COUNT (77815) Antimicrobial MIHEAD (Normal) Comments: S = Susceptible; [...] mL (Normal) Urine Final report (Normal) Culture,Comprehensive 90-Dqi-863602:41 Urinalysis, Office (55673) UA - LEUKOCYTE ESTERASE Large (Normal) UA - NITRITE Negative (Normal) URINE UROBILINGN NITA TIMED Normal mg/dL (Normal) UA - PROTEIN 100 mg/dL (Normal) UA - PH 5.0 (Normal) UA - BLOOD Hemolyzed Large (Normal) UA - SPECIFIC GRAVITY 1.025 (Normal) UA - KETONES Negative mg/dL (Normal) UA - BILIRUBIN Negative (Normal) UA - GLUCOSE Negative (Normal) 5-Dlr-651548:19 BLOOD GAS, O2 SAT ONLY - INITL Radiology Report See Note (Normal) Comments: Exam Number: [id number] Procedure completed. Please see MEDICAL RECORDS reports in PCI - OP - OP NOTE LET - LETTER. Reported By: BOONE CH M.D. 8-Efp-758332:19 BLOOD GAS, O2 SAT ONLY - SUBSQ Radiology Report See Note (Normal) Comments: Exam Number: [id number] Procedure completed. Please see MEDICAL RECORDS reports in PCI - OP - OP NOTE LET - LETTER. Reported By: BOONE CH M.D. 6-Cqh-029341:19 BLOOD GAS, O2 SAT ONLY - SUBSQ Radiology Report See Note (Normal) Comments: Exam Number: [id number] Procedure completed. Please see MEDICAL RECORDS reports in PCI - OP - OP NOTE LET - LETTER. Reported By: BOONE CH M.D. 04-Aug-20096:45 RHC/LHC/CORS/LV Radiology Report See Note (Normal) Comments: Exam Number: [id number] Procedure completed. Please see MEDICAL RECORDS reports in PCI - OP - OP NOTE LET - LETTER. Reported By: BOONE CH M.D. 4-Bvi-150703:59 BMP BUN 15 mg/dL (Normal) Range: 7-18 [...] MIXED GRAM POSITIVE ORGANISMS :58 Urinalysis, Office (60911) UA - BILIRUBIN Negative (Normal) UA - BLOOD Negative (Normal) UA - GLUCOSE Negative (Normal) UA - KETONES Negative mg/dL (Normal) UA - LEUKOCYTE ESTERASE Small (Normal) Comments: aw UA - NITRITE Negative (Normal) UA - PH 6.0 (Normal) UA - PROTEIN Negative mg/dL (Normal) UA - SPECIFIC GRAVITY 1.010 (Normal) URINE UROBILINGN NITA TIMED Normal mg/dL (Normal) :53 HgA1C , Office (54986) HgA1C , Office 5.7 % (Normal) Range: 4.6 - 7.1 41-Ngu-850479:53 Blood Glucose , Office (49517) Blood Glucose , Office 133 (Normal) :24 [...] T PROT 7.0 g/dL (Normal) Range: 6.4-8.2 67-Nuc-162440:53 HgA1C , Office (45422) HgA1C , Office 10.0 % (Abnormal) Range: 4.6 - 7.1 48-Qgj-491505:53 Blood Glucose , Office (97744) Blood Glucose , Office 410 (Normal) 3-Ecc-057772:46 CBCD,SMEAR DIFF BAND 1 % (Normal) Range: [...] mg/dL VLDL 49 mg/dL (Abnormal) Range: 5-40 7-Mkr-477017:46 MICROALB:CRE UR MALB:CREAT 33.3 {mg/g_CRE} (Abnormal) MICROALBUMIN,UR 62.2 mg/L (Normal) UR CREAT 186.7 mg/dL (Normal) 15-Uiu-012296:11 LIPID Comments: PATIENT NOT FASTING/DEMANDED TO BE [...] mg/dL VLDL 31 mg/dL (Normal) Range: 40 77-Eyx-530821:11 LIVER Comments: PATIENT NOT FASTING/DEMANDED TO BE DRAWN ALT 43 U/L (Normal) Range: 30-65 D BILI 0.07 mg/dL (Normal) Range: 0.00-0.30 T BILI 0.35 mg/dL (Normal) Range: 0.00-1.00 ALB 3.4 g/dL (Normal) Range: 3.4-5.0 ALK P 210 U/L (Abnormal) Range: 50-136 AST 27 U/L (Normal) Range: 15-37 T PROT 6.4 g/dL (Normal) Range: 6.4-8.2 68-Oqf-330257:23 Urinalysis, Office (56429) Comments: done BC UA - BILIRUBIN Negative (Normal) UA - BLOOD Hemolyzed Large (Normal) UA - GLUCOSE Large (Normal) Comments: > 1000mg/dL UA - KETONES Negative mg/dL (Normal) UA - LEUKOCYTE ESTERASE Moderate (Normal) UA - NITRITE Negative (Normal) UA - PH 6.0 (Normal) UA - PROTEIN 30 mg/dL (Normal) UA - SPECIFIC GRAVITY 1.010 (Normal) URINE UROBILINGN NITA TIMED Normal mg/dL (Normal) 80-Dkr-618655:44 MYOCARD PERF SPECT REST/STRESS Radiology Report See Note (Normal) Comments: Exam Number: [id number] MYOCARDIAL PERFUSION SCAN TECHNIQUEThe patient was injected [...] of 37%. Reported By: NOE MORRIS M.D. 76-Jtm-42694:39 SPINE, LUMBAR W/W/O CONTRAST Radiology Report See Note (Normal) Comments: Exam Number: [id number] MAGNETIC RESONANCE IMAGING OF THE LUMBAR SPINE [...] other abnormality. Reported By: SUSAN GOMEZ M.D. 33-Zha-332176:04 CULTURE, URINE URINE CULTURE See Note {CFU/mL} (Normal) Comments: COLONY COUNT 25,000-50,000 ORGANISM 1: MIXED GRAM POSITIVE ORGANISMS 36-Mkr-853222:15 Urinalysis, Office (50656) UA - LEUKOCYTE ESTERASE Small (Normal) Comments: aw UA - NITRITE Negative (Normal) UA - PH 5.0 (Normal) UA - PROTEIN Negative mg/dL (Normal) URINE UROBILINGN NITA TIMED Normal mg/dL (Normal) UA - BILIRUBIN Negative (Normal) UA - BLOOD Negative (Normal) UA - GLUCOSE Negative (Normal) UA - KETONES Negative mg/dL (Normal) UA - SPECIFIC GRAVITY 1.025 (Normal) 51-Qmc-699409:09 Blood Glucose , Office (47037) Blood Glucose , Office 231 (Normal) 60-Pzu-602109:09 HgA1C , Office (39139) HgA1C , Office 7.1 % (Normal) Range: 4.6 - 7.1 75-Hvj-673557:42 CBCD,SMEAR DIFF CELLS COUNTED 100 (Normal) HCT [...] 47-70 WBC 4.3 K/mm3 (Abnormal) Range: 4.4-11.0 23-Jpr-206161:42 COMP METABOLIC A/G 1.2 {RATIO} (Normal) Range: [...] for patient's is the eGFRmultiplied by 1.212. [facility] Laboratory uses the abbreviated Modification of [...] Disease W/O Kidney Disease>/= 90 Stage One Ytgtsy90 - 89 Stage Two Suspect Decreased GFR30 [...] T PROT 6.5 g/dL (Normal) Range: 6.4-8.2 82-Nht-595514:42 LIPID CHOL 182 mg/dL (Normal) Comments: <200 [...] mg/dL VLDL 36 mg/dL (Normal) Range: 5-40 76-Vij-845770:42 MICROALB:CRE UR MALB:CREAT 35.4 {mg/g_CRE} (Abnormal) MICROALBUMIN,UR 54.7 mg/L (Normal) UR CREAT 154.6 mg/dL (Normal) 35-Aio-956503:42 TSH 2.57 {uIU/mL} (Normal) Range: 0.34-4.82 42-Wwx-229730:40 CULTURE, URINE URINE CULTURE See Note {CFU/mL} (Normal) Comments: COLONY COUNT 1000-10,000 ORGANISM 1: MIXED GRAM POS & NEG ORGANISMS :36 Urinalysis, Office (74091) UA - BILIRUBIN Negative (Normal) UA - BLOOD Non Hemolyzed Trace (Normal) UA - KETONES Negative mg/dL (Normal) UA - LEUKOCYTE ESTERASE Moderate (Normal) UA - NITRITE Negative (Normal) UA - PH 5.0 (Normal) UA - PROTEIN Negative mg/dL (Normal) UA - SPECIFIC GRAVITY 1.015 (Normal) URINE UROBILINGN NITA TIMED Normal mg/dL (Normal) UA - GLUCOSE Negative (Normal) 60-Umi-484707:20 CULTURE, URINE URINE CULTURE See Note {CFU/mL} (Normal) Comments: COLONY COUNT 25,000-50,000 ORGANISM 1: MIXED GRAM POS & NEG ORGANISMS :12 Urinalysis, Office (09241) UA - BILIRUBIN Negative (Normal) UA - BLOOD Negative (Normal) UA - GLUCOSE Negative (Normal) UA - KETONES Negative mg/dL (Normal) UA - LEUKOCYTE ESTERASE Small (Normal) UA - NITRITE Negative (Normal) UA - PH 6.0 (Normal) UA - PROTEIN Negative mg/dL (Normal) UA - SPECIFIC GRAVITY 1.005 (Normal) URINE UROBILINGN NITA TIMED Normal mg/dL (Normal) 98-Erl-833222:08 CBCD,SMEAR DIFF CELLS COUNTED 100 (Normal) EOS [...] 47-70 WBC 5.1 K/mm3 (Normal) Range: 4.4-11.0 21-Szn-389388:08 COMP METABOLIC A/G 1.5 {RATIO} (Normal) Range: [...] Range: 0.34-4.82 :28 Blood Glucose , Office (55528) Blood Glucose , Office 124 (Normal) :28 HgA1C , Office (28221) HgA1C , Office 6.1 % (Normal) Range: 4.6 - 7.1 :38 CERULOPLAS 1560 21.3 mg/dL (Normal) Range: 17.9-53.3 Comments: Performed At: [address] [id number] FERRITIN 189 ng/mL (Normal) Range: 8-252 :38 HEP-ABC 934211 HB CORE [id number] SeeNote (Normal) Comments: Result: Negative HB SURF [...] as: RIBA RESULT <TEST NOT PERFORMED> (Normal) 27-Qir-039629:38 LIVER ALB 3.5 g/dL (Normal) Range: 3.4-5.0 ALK P 162 U/L (Abnormal) Range: 50-136 ALT 50 U/L (Normal) Range: 30-65 AST 21 U/L (Normal) Range: 15-37 D BILI 0.05 mg/dL (Normal) Range: 0.00-0.30 T BILI 0.38 mg/dL (Normal) Range: 0.00-1.00 T PROT 6.5 g/dL (Normal) Range: 6.4-8.2 10-Nns-742386:38 MITOCHN AB 6650 <20.0 {Units} (Normal) Range: 0.0-20.0 Comments: Negative 0.0 - 20.0 Equivocal 20.1 - 24.9 Positive >24.9 . Mitochondrial (M2) Antibodies are found in 90-96% of patients with primary biliary cirrhosis. 40-Lrr-938352:03 GGTP 61 U/L (Abnormal) Range: 5-55 :03 LIVER ALB 3.7 g/dL (Normal) Range: 3.4-5.0 ALK P 161 U/L (Abnormal) Range: 50-136 ALT 35 U/L (Normal) Range: 30-65 AST 18 U/L (Normal) Range: 15-37 D BILI 0.06 mg/dL (Normal) Range: 0.00-0.30 T BILI 0.33 mg/dL (Normal) Range: 0.00-1.00 T PROT 6.5 g/dL (Normal) Range: 6.4-8.2 5-Tmu-975929:02 THYROID (HP) Radiology Report See Note (Normal) Comments: Exam Number: [id number] THYROID ULTRASOUND HISTORYThyromegaly. High-resolution, real-time linear images [...] is recommended. Reported By: TRUE NAGEL M.D. 95-Bge-048755:05 Blood Glucose , Office (56914) Blood Glucose , Office 135 (Normal) 32-Tpq-880264:05 HgA1C , Office (73750) HgA1C , Office 5.6 % (Normal) Range: [...] Report See Note (Normal) Comments: Exam Number: [id number] CT BRAIN WITHOUT AND WITH INTRAVENOUS CONTRAST [...] clinically warranted. Reported By: AIDAN MASON M.D. 17-Iaw-121029:30 CBCD Comments: CALL [phone] TO [phone] BASO% 0.8 % (Normal) Range: 0-1 EO% [...] 1+ANISOCYTOSIS WBC 3.8 K/mm3 (Abnormal) Range: 4.4-11.0 36-Pkn-065656:30 COMP METABOLIC Comments: CALL [phone] TO [phone] A/G 1.5 {RATIO} (Normal) Range: 0.9-2.4 ALB [...] :30 LDH 206 U/L (Abnormal) Comments: CALL [phone] TO [phone] Range: 100-190 :30 URIC 5.7 mg/dL (Normal) Comments: CALL [phone] TO [phone] Range: 2.6-6.0 8-Vcy-959588:30 CULT, DP WOUND Comments: 2 AERO SWABS WERE COLLECTED...BOTH FROM PORT SITE...RIGHTCHEST ANAEROBIC CULT See Note (Normal) Comments: No anaerobic bacteria isolated. GRAM STAIN See Note (Normal) Comments: GRAM STAIN NO CELLS SEEN NO ORGANISMS SEEN RED CELL STROMA WOUND CULTURE No growth aerobically. (Normal) 2-Lma-937599:15 C DIF TOXIN See Note (Normal) Comments: [...] mg/dL (Abnormal) Range: 40-230 Comments: Performed At: [facility] [place], [place] [id number] :41 LDH 211 U/L (Abnormal) Range: 100-190 [...] 3.5-5.1 NA 136 mmol/L (Normal) Range: 136-145 50-Jis-560797:20 CBCD Comments: COMMENTS: BED 13 FASTPrecautions*: NOT [...] 47-70 WBC 23.9 K/mm3 (Abnormal) Range: 4.4-11.0 61-Dok-65502:30 AFB C&S [id number] Comments: Precautions*: CHEMO PRECAUTIONSSPECIMEN DESCRIPTION: #2 SAME SOURCE AFB CULT See Note Comments: [facility] ORIGINAL REPORT ON FILE IN LAB CONTAINS ADDITIONAL TEST SITE INFORMATION. (Normal) CULTURE, ACID FAST NO ACID-FAST BACILLI ISOLATED AFTER 6 WEEKS. AFB SMEAR See Note Comments: TESTING PERFORMED AT [facility]. ORIGINAL REPORT ON FILE IN LAB CONTAINS ADDITIONAL TEST SITE INFORMATION. (Normal) ACID FAST BACILLUS SMEAR NO ACID-FAST BACILLI OBSERVED ON SMEAR. 13-D CULT,ALFREDITO See Note Comments: Precautions*: CHEMO PRECAUTIONSSPECIMEN DESCRIPTION: #1 SAME SOURCE ec-2 8482 (Normal) Comments: ` TESTING PERFORMED AT [facility]. ORIGINAL REPORT ON FILE IN LAB CONTAINS ADDITIONAL TEST SITE INFORMATION. 0069 CULTURE, FUNGUS NO YEAST OR MOLD ISOLATED AFTER 4 WEEKS. :30 13-D CYTOLOGY, SeeNote Comments: Result: SEE PATHOLOGY REPORT Specimen submitted to Anatomical Pathology Department for testing. ec-2 BF/CSF (Normal) 0069 :30 81-Iya-70350:30 FLUID P-FLU (Normal) Comments: OPERATION Not noted HISTORY Lymphoma PRE-OPERATIVE DIAGNOSIS Pain injection lower back TISSUE SUBMITTED CSF for cytology DIAGNOSIS (CYTOLOGY) Cerebrospinal fluid (cytospins and cell block): Negat scott for malignant cells. : 09/08/06 CYTOLOGY STUDY The specimen is bloody. [...] T PROT 6.6 g/dL (Normal) Range: 6.4-8.2 30-Rdl-19314:25 COMPLETE UA BACTERIA 2+ {/hpf} (Normal) BILIRUBIN [...] DRAWN 07/22/06-TEST MISSED Range: 100-190 :51 SPE 301881 A/G RATIO 1.3 (Normal) Range: 0.7-2.0 ALBUMIN [...] Evidenceof monoclonal protein is not apparent.Performed At: [address] [id number] M-SPIKE SeeNote (Normal) Comments: Result: Not Observed NOTE: Comment (Normal) Comments: Protein electrophoresis scan will follow via mail orcourier. PROTEIN,TOTAL 6.5 g/dL (Normal) Range: 6.0-8.5 :49 Blood Glucose , Office (88744) Blood Glucose , Office 84 (Normal) :49 HgA1C , Office (19075) HgA1C , Office 6.6 % (Normal) Range: [...] eye, right : Follow up tomorrow with [facility] Indication: Pain, eye, right Need for prophylactic [...] after tests Indication: Paroxysmal tachycardia Planned Observations METABOLIC PANEL, BASIC (50731)Indication: CHF (congestive heart failure) On: :05 Request CPK MB FRACTION (19572)Indication: SOB (shortness of breath) On: :21 Request Comments: stat ASSAY, TROPONIN, QUANTITATIVE (aka Troponin I) (17169)Indication: SOB (shortness of breath) On: :21 Request Comments: stat CBC W/AUTO DIFF WBC (54991)Indication: SOB (shortness of breath) On: :08 Request Comments: stat METABOLIC PANEL, COMPREHENSIVE (86210)Indication: SOB (shortness of breath) On: :08 Request Comments: stat D-Dimer (88290)Indication: SOB (shortness of breath) On: :08 Request Comments: stat BNTP (23551)Indication: SOB (shortness of breath) On: :08 Request Comments: stat CBC with auto diff (59263)Indication: Diabetes mellitus type II, controlled On: :03 Request LIPID PANEL (03265)Indication: Diabetes mellitus type II, controlled On: :03 Request METABOLIC PANEL, COMPREHENSIVE (21267)Indication: Diabetes mellitus type II, controlled On: :03 Request HGB A1C (45555)Indication: Diabetes mellitus type II, controlled On: :02 Request TSH (THYROID STIMULATING HORMONE) (02595)Indication: Acquired hypothyroidism On: :02 Request Metabolic Panel, Basic (13384)Indication: Hyponatremia On: : Request TSH (77280)Indication: Diabetes mellitus type II, controlled On: :48 Request Vitamin B-12 (cyanocobalamin) (51749)Indication: B12 deficiency On: :45 Request CBC WITH MANUAL DIFF (81897)Indication: B12 deficiency On: :45 Request T3, FREE (TRIDOTHYRONINE) (10885)Indication: Thyroid nodule On: :48 Request Comments: add to labs already drawn T4, FREE (THYROXINE) (18661)Indication: Thyroid nodule On: :47 Request Comments: add to labs already drawn Digoxin (85008)Indication: Cardiomyopathy On: :44 Request LIPID PANEL (70366)Indication: Mixed hyperlipidemia On: :43 Request TSH (55378)Indication: Acquired hypothyroidism On: :43 Request Vitamin D Hydroxy (61941)Indication: Vitamin D deficiency On: :43 Request BPDFM-OGBUJFBVFXV-YYHPP (56618)Indication: Fatty liver On: 05-Onv-365591:42 Request VITAMIN B-12 (CYANOCOBALAMIN) (38774)Indication: Fatigue On: :42 Request URINALYSIS, W/ MICRO (33166)Indication: Diabetes mellitus type II, controlled On: 39-Rrb-588399:30 Request MICROALBUMIN: CREATININE RATIO (12574) AND (36475)Indication: Diabetes mellitus type II, controlled On: :29 Request CBC with auto diff (86452)Indication: Diabetes mellitus type II, controlled On: 74-Tdu-035218:29 Request METABOLIC PANEL, COMPREHENSIVE (24800)Indication: Diabetes mellitus type II, controlled On: 10-Ugq-379186:29 Request HGB A1C (84017)Indication: Diabetes mellitus type II, controlled On: 25-Rlh-017672:29 Request HEPATIC FUNCTION PANEL (68536)Indication: Elevated liver enzymes On: 4-Tjp-101677:38 Request Comments: do in hospital tuesday when get US Metabolic Panel, Comprehensive (95756)Indication: Epigastric pain On: 20-Cmv-882701:54 Request Sed Rate Erythrocyte (43520)Indication: Epigastric pain On: 49-Upl-524969:54 Request CBC, Platelets & Auto Diff (78039)Indication: Epigastric pain On: 23-Mjd-027384:54 Request OVA & PARASITE DIR SMEAR (41454)Indication: Diarrhea On: :53 Request OCCULT BLOOD FECES SCREEN ([id number])Indication: Diarrhea On: :53 Request LEUKOCYTE COUNT, FECAL (80980)Indication: Diarrhea On: :53 Request C-DIFFICILE, STOOL ([id number])Indication: Diarrhea On: :53 Request GENESIS CULTURE-STOOL ([id number])Indication: Diarrhea On: :53 Request Magnesium (08515)Indication: Fatigue On: 29-Lkv-469603:42 Request Vitamin B-12 (cyanocobalamin) (11230)Indication: Fatigue On: 96-Bfr-068521:41 Request MICROALBUMIN: CREATININE RATIO ([id number]) AND ([id number])Indication: Diabetes mellitus type II, controlled On: 18-Cio-735863:40 Request LIPID PANEL (03514)Indication: Mixed hyperlipidemia On: 70-Upv-215127:39 Request CBC W/AUTO DIFF WBC (52122)Indication: Fatty liver On: :30 Request METABOLIC PANEL, COMPREHENSIVE (40675)Indication: Fatty liver On: :30 Request Vitamin D Hydroxy (27145)Indication: Vitamin D deficiency On: :30 Request TSH (56532)Indication: Acquired hypothyroidism On: :30 Request Digoxin (11218)Indication: Cardiomyopathy On: 67-Ssc-149245:29 Request LIPASE ([id number])Indication: Epigastric pain On: :28 Request AMYLASE ([id number])Indication: Epigastric pain On: 01-Cew-574356:28 Request URINE GENESIS CULTURE-IDENTIFICATN (57548)Indication: Leukocytes in urine On: 95-Fzt-562160:38 Request MICROALBUMIN: CREATININE RATIO (93714) AND ([id number])Indication: Essential hypertension with goal blood pressure less than 130/80 On: 04-Iva-56677:58 Request CBC W/AUTO DIFF WBC ([id number])Indication: Essential hypertension with goal blood pressure less than 130/80 On: :58 Request METABOLIC PANEL, COMPREHENSIVE ([id number])Indication: Essential hypertension with goal blood pressure less than 130/80 On: :58 Request [id number] ([id number])Indication: Abnormal tumor markers On: :57 Request Vitamin D Hydroxy ([id number])Indication: Vitamin D deficiency On: :09 Request LIPOPROTEIN, BLD, BY NMR ([id number])Indication: Mixed hyperlipidemia On: :09 Request CBC W/AUTO DIFF WBC ([id number])Indication: Diabetes mellitus type II, controlled On: : Request METABOLIC PANEL, COMPREHENSIVE ([id number])Indication: Diabetes mellitus type II, controlled On: :09 Request Potassium Serum ([id number])Indication: Hypopotassemia On: 45-Bbx-393236:02 Request [id number] ([id number])Indication: Fatty liver On: :57 Request MICROALBUMIN: CREATININE RATIO ([id number]) AND ([id number])Indication: Essential hypertension with goal blood pressure less than 130/80 On: :45 Request CBC W/AUTO DIFF WBC ([id number])Indication: Essential hypertension with goal blood pressure less than 130/80 On: :45 Request METABOLIC PANEL, COMPREHENSIVE ([id number])Indication: Essential hypertension with goal blood pressure less than 130/80 On: :45 Request Vitamin D Hydroxy ([id number])Indication: Vitamin D deficiency On: :45 Request TSH ([id number])Indication: Acquired hypothyroidism On: :45 Request LIPID PANEL ([id number])Indication: Mixed hyperlipidemia On: :45 Request CBC W/AUTO DIFF WBC ([id number])Indication: Diabetes mellitus type II, controlled On: :28 Request APASR-IPAHJIEWJGU-[id number] ([id number])Indication: Fatty liver On: 95-Qpq-555253:03 Request METABOLIC PANEL, COMPREHENSIVE ([id number])Indication: Mixed hyperlipidemia On: :55 Request LIPOPROTEIN, BLD, BY NMR ([id number])Indication: Mixed hyperlipidemia On: :55 Request Metabolic Panel, Basic ([id number])Indication: Hypopotassemia On: :55 Request Comments: 10 days CBC (AUTO) ([id number])Indication: Uncontrolled type II diabetes mellitus On: :03 Request Vitamin D Hydroxy (94413)Indication: Vitamin D deficiency On: : Request MICROALBUMIN: CREATININE RATIO ([id number]) AND ([id number])Indication: Uncontrolled type II diabetes mellitus On: :02 Request METABOLIC PANEL, COMPREHENSIVE ([id number])Indication: Essential hypertension with goal blood pressure less than 130/80 On: : Request ZEFIV-[id number] ([id number])Indication: Fatty liver On: : Request LIPID PANEL (09835)Indication: Mixed hyperlipidemia On: : Request TSH ([id number])Indication: Thyroid nodule On: : Request CBC W/AUTO DIFF WBC ([id number])Indication: Uncontrolled type II diabetes mellitus On: :47 Request METABOLIC PANEL, COMPREHENSIVE ([id number])Indication: Uncontrolled type II diabetes mellitus On: :47 Request LIPID PANEL ([id number])Indication: Mixed hyperlipidemia On: :47 Request Vitamin D Hydroxy ([id number])Indication: Vitamin D deficiency On: :47 Request DLVQZ-[id number] ([id number])Indication: Fatty liver On: : Request CBC W/AUTO DIFF WBC ([id number])Indication: Uncontrolled type II diabetes mellitus On: :26 Request LIPID PANEL ([id number])Indication: Mixed hyperlipidemia On: : Request MICROALBUMIN: CREATININE RATIO (80857) AND ([id number])Indication: Uncontrolled type II diabetes mellitus On: : Request TSH ([id number])Indication: Acquired hypothyroidism On: : Request METABOLIC PANEL, COMPREHENSIVE (53143)Indication: Essential hypertension with goal blood pressure less than 130/80 On: : Request Vitamin D Hydroxy ([id number])Indication: Vitamin D deficiency On: 90-Lzs-17305:25 Request CALCIFEDIOL ([id number])Indication: Vitamin D deficiency On: 93-Ajw-799533:44 Request Comments: to be done Jun 2015 after done with ergocalciferol URINE GENESIS CULTURE (NITA COL COUNT) ([id number])Indication: UTI (lower urinary tract infection) On: 4-Cjn-795824:22 Request LIPID PANEL ([id number])Indication: Mixed hyperlipidemia On: 8-Tnu-108706:15 Request CBC W/AUTO DIFF WBC ([id number])Indication: Uncontrolled type II diabetes mellitus On: 2-Zew-874292:14 Request METABOLIC PANEL, COMPREHENSIVE ([id number])Indication: Uncontrolled type II diabetes mellitus On: 4-Jkn-976449:14 Request TSH ([id number])Indication: Acquired hypothyroidism On: 7-Lps-567560:14 Request [id number] ([id number])Indication: Fatty liver On: :14 Request CBC, Platelets & Auto Diff ([id number])Indication: HX, PERSONAL, MALIGNANCY, LYMPHATIC NEC On: 89-Gdg-82148:07 Request CBC WITH MANUAL DIFF ([id number])Indication: Abnormal glucose tolerance test On: 27-Jul-20139:33 Request MICROALBUMIN: CREATININE RATIO ([id number]) AND ([id number])Indication: Abnormal glucose tolerance test On: :33 Request LIPID PANEL ([id number])Indication: Mixed hyperlipidemia On: 27-Jul-20139:31 Request METABOLIC PANEL, COMPREHENSIVE ([id number])Indication: Abnormal glucose tolerance test On: :31 Request URINE GENESIS CULTURE-NITA COL COUNT ([id number])Indication: Dysuria On: 61-Kqv-522513:03 Request RETICULOCYTE COUNT ([id number])Indication: Anemia On: :37 Request Iron (87303)Indication: Anemia On: :37 Request Ferritin (79338)Indication: Anemia On: :37 Request CBC (Auto) ([id number])Indication: Anemia On: :37 Request CBC, Platelets & Auto Diff (35897)Indication: Fever On: 21-Vrs-62396:03 Request Metabolic Panel, Comprehensive (43353)Indication: Fever On: 65-Zhz-29289:03 Request HgA1C , Office ([id number])Indication: Abnormal glucose tolerance test On: 11-Gzp-64447:55 Request CBC WITH MANUAL DIFF ([id number])Indication: Abnormal glucose tolerance test On: :53 Request METABOLIC PANEL, COMPREHENSIVE ([id number])Indication: Abnormal glucose tolerance test On: 84-Ifw-509942:53 Request LIPID PANEL ([id number])Indication: Mixed hyperlipidemia On: :53 Request GPOYB-[id number]-EZSMN ([id number])Indication: Fatty liver On: :53 Request PTT (Activated Partial Thromboplastin Time) ([id number])Indication: Fatty liver On: : Request PT (Prothrobim Time) (58020)Indication: Fatty liver On: :53 Request MICROALBUMIN: CREATININE RATIO ([id number]) AND ([id number])Indication: Abnormal glucose tolerance test On: 30-Crg-516028:49 Request Anti-TPO Antibody ([id number])Indication: Acquired hypothyroidism On: 14-Wvj-864015:14 Request Comments: 1 month TSH (35323)Indication: Acquired hypothyroidism On: 24-Ryu-283384:13 Request Comments: 1 month T4, FREE (THYROXINE) ([id number])Indication: Acquired hypothyroidism On: :13 Request Comments: 1 month T3, FREE (TRIDOTHYRONINE) ([id number])Indication: Acquired hypothyroidism On: 09-Jdm-278921:13 Request Comments: 1 month CBC WITH MANUAL DIFF ([id number])Indication: Abnormal glucose tolerance test On: :38 Request METABOLIC PANEL, COMPREHENSIVE ([id number])Indication: Abnormal glucose tolerance test On: :38 Request LIPID PANEL ([id number])Indication: Mixed hyperlipidemia On: :38 Request MICROALBUMIN: CREATININE RATIO (30100) AND ([id number])Indication: Abnormal glucose tolerance test On: :56 Request CBC WITH MANUAL DIFF ([id number])Indication: Elevated LFTs On: 37-Gwg-524425:56 Request METABOLIC PANEL, COMPREHENSIVE ([id number])Indication: Elevated LFTs On: 61-Zhs-083066:56 Request LIPID PANEL ([id number])Indication: Mixed hyperlipidemia On: 13-Ocv-304103:56 Request TSH ([id number])Indication: Acquired hypothyroidism On: 24-Yjz-201705:56 Request CBC WITH MANUAL DIFF ([id number])Indication: Essential hypertension with goal blood pressure less than 130/80 On: :34 Request TSH ([id number])Indication: Acquired hypothyroidism On: :34 Request METABOLIC PANEL, COMPREHENSIVE (39953)Indication: Fatty liver On: :33 Request LIPID PANEL ([id number])Indication: Mixed hyperlipidemia On: :33 Request MICROALBUMIN: CREATININE RATIO ([id number]) AND ([id number])Indication: Uncontrolled type II diabetes mellitus On: :46 Request TSH ([id number])Indication: Acquired hypothyroidism On: :46 Request LIPID PANEL ([id number])Indication: Mixed hyperlipidemia On: :45 Request METABOLIC PANEL, COMPREHENSIVE (16404)Indication: Elevated LFTs On: :45 Request HgA1C , Office ([id number])Indication: Uncontrolled type II diabetes mellitus On: :28 Request URINE GENESIS CULTURE-NITA COL COUNT ([id number])Indication: Cystitis, acute On: :43 Request URINE GENESIS CULTURE-IDENTIFICATN ([id number])Indication: Dysuria On: :10 Request CBC WITH MANUAL DIFF ([id number])Indication: Headache On: 79-Ayx-173869:56 Request METABOLIC PANEL, COMPREHENSIVE ([id number])Indication: Headache On: 95-Ywj-065514:56 Request LIPID PANEL ([id number])Indication: Mixed hyperlipidemia On: 26-Wkh-306792:56 Request TSH ([id number])Indication: Acquired hypothyroidism On: 96-Vsh-190126:56 Request METABOLIC PANEL, COMPREHENSIVE ([id number])Indication: Uncontrolled type II diabetes mellitus On: 39-Hkz-654078:28 Request HEPATIC FUNCTION PANEL ([id number])Indication: Mixed hyperlipidemia On: 59-Wzq-773059:28 Request LIPID PANEL ([id number])Indication: Mixed hyperlipidemia On: 82-Ivr-559220:28 Request LIPID PANEL ([id number])Indication: Mixed hyperlipidemia On: :39 Request MICROALBUMIN: CREATININE RATIO ([id number]) AND ([id number])Indication: Uncontrolled type II diabetes mellitus On: :39 Request CBC WITH MANUAL DIFF ([id number])Indication: Essential hypertension with goal blood pressure less than 130/80 On: :39 Request METABOLIC PANEL, COMPREHENSIVE ([id number])Indication: Elevated LFTs On: :39 Request TSH ([id number])Indication: Acquired hypothyroidism On: :36 Request TSH ([id number])Indication: Thyroid nodule On: :20 Request METABOLIC PANEL, COMPREHENSIVE ([id number])Indication: Elevated LFTs On: :19 Request LIPID PANEL ([id number])Indication: Mixed hyperlipidemia On: :19 Request C-REACTIVE PROTEIN ([id number])Indication: Abnormal findings on diagnostic imaging of other specified body structures On: 96-Deh-777443:02 Request SED RATE ERYTHROCYTE ([id number])Indication: Abnormal findings on diagnostic imaging of other specified body structures On: 92-Aos-544474: Request LDH (LD) (LACTATE DEHYDROGENASE) ([id number])Indication: Abnormal findings on diagnostic imaging of other specified body structures On: 84-Azw-820981: Request Urine Protein Electrophoresis (UPEP) ([id number])Indication: Abnormal findings on diagnostic imaging of other specified body structures On: 44-Mol-183682:02 Request Serum Protein Electrophoresis (SPEP) ([id number])Indication: Abnormal findings on diagnostic imaging of other specified body structures On: 28-Kla-758695:02 Request METABOLIC PANEL, COMPREHENSIVE ([id number])Indication: Diabetes mellitus type II, controlled On: :19 Request LIPID PANEL ([id number])Indication: Mixed hyperlipidemia On: :19 Request URINE GENESIS CULTURE-NITA COL COUNT ([id number])Indication: Dysuria On: 73-Tcb-113253:58 Request HEPATIC FUNCTION PANEL ([id number])Indication: Elevated LFTs On: :18 Request LIPID PANEL ([id number])Indication: Mixed hyperlipidemia On: 46-Itj-107305:17 Request MICROALBUMIN: CREATININE RATIO ([id number]) AND ([id number])Indication: Uncontrolled type II diabetes mellitus On: :47 Request CBC WITH MANUAL DIFF ([id number])Indication: Uncontrolled type II diabetes mellitus On: :47 Request METABOLIC PANEL, COMPREHENSIVE ([id number])Indication: Uncontrolled type II diabetes mellitus On: 6-Sxp-098036:47 Request HEPATIC FUNCTION PANEL ([id number])Indication: Elevated LFTs On: 9-Ksg-023334:45 Request LIPID PANEL ([id number])Indication: Mixed hyperlipidemia On: 3-Omj-258115:44 Request HEPATIC FUNCTION PANEL ([id number])Indication: Fatty liver On: 7-Mkf-858760:30 Request LIPID PANEL ([id number])Indication: Mixed hyperlipidemia On: 8-Vrl-026173:30 Request URINE GENESIS CULTURE (NITA COL COUNT) ([id number])Indication: Low back pain potentially associated with radiculopathy On: 99-Srt-531884:03 Request MICROALBUMIN: CREATININE RATIO ([id number]) AND ([id number])Indication: Dysuria On: 83-Biw-997067:05 Request LIPID PANEL ([id number])Indication: Dysuria On: 84-Bnx-261522:05 Request TSH ([id number])Indication: Dysuria On: 84-Zdn-292260:05 Request METABOLIC PANEL, COMPREHENSIVE ([id number])Indication: Dysuria On: 75-Qhi-480514:04 Request CBC WITH MANUAL DIFF ([id number])Indication: Dysuria On: 15-Zme-605181:04 Request URINE GENESIS CULTURE-NITA COL COUNT ([id number])Indication: Dysuria On: 48-Rxb-962508:45 Request URINE GENESIS CULTURE (NITA COL COUNT) ([id number])Indication: Dysuria On: 87-Qmg-803722:17 Request METABOLIC PANEL, COMPREHENSIVE ([id number])Indication: Fatty liver On: 74-Xcy-58445:58 Request Magnesium ([id number])Indication: Palpitations On: 68-Juk-74117:51 Request TSH ([id number])Indication: Palpitations On: 57-Msq-82906:51 Request METABOLIC PANEL, COMPREHENSIVE ([id number])Indication: Palpitations On: 24-Tku-40811:51 Request CBC WITH MANUAL DIFF ([id number])Indication: Palpitations On: 75-Udd-12543:51 Request GGT (Gamma Glutamyl Transferase) ([id number])Indication: Elevated LFTs On: 43-Lrb-141977:16 Request HEPATIC FUNCTION PANEL ([id number])Indication: Elevated LFTs On: 91-Ufh-978483:16 Request VITAMIN B-12 (CYANOCOBALAMIN) ([id number])Indication: Fatigue On: :23 Request MICROALBUMIN URINE QUANT ([id number])Indication: Diabetes mellitus type II, controlled On: :22 Request TSH ([id number])Indication: Fatigue On: :22 Request CBC WITH MANUAL DIFF ([id number])Indication: Diabetes mellitus type II, controlled On: 18-Nhr-35882:22 Request METABOLIC PANEL, COMPREHENSIVE ([id number])Indication: Diabetes mellitus type II, controlled On: :22 Request LIPID PANEL ([id number])Indication: Mixed hyperlipidemia On: :22 Request HEPATIC FUNCTION PANEL ([id number])Indication: Mixed hyperlipidemia On: :48 Request LIPID PANEL ([id number])Indication: Mixed hyperlipidemia On: :48 Request Comments: in 3 mos Planned Encounters Medical; [facility] 1 Month FU - On: 12-Sep-2018 8:00 [facility] Fast DO, Sangeetha A Fast DO, Sangeetha A Planned Procedures Echo CompleteBy: Fast DO, Sangeetha A On: 04-Sep-2018 Intent Fast DO, Sangeetha A CTA CHEST W/W/O CONTRAST ([id number])By: On: 04-Sep-2018 Intent Fast DO, Sangeetha A Fast DO, Sangeetha A Overnight Pulse OX ([id number])By: Fast On: 04-Sep-2018 Intent DO, Sangeetha A Fast DO, Sangeetha A Spirometry (25237)By: Fast DO, On: 04-Sep-2018 Intent Sangeetha A Fast DO, Sangeetha A Comments: difficutly with insp effort severe restriction ELECTROCARDIOGRAM, COMPLETE (ECG) On: 04-Sep-2018 Intent ([id number])By: Fast DO, Sangeetha A Fast DO, Comments: ekg- 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 and possible recent anterior wall mi- nonspecific st depression Sangeetha A Flu Vaccine (Quadrivalent) 65742Mn: On: 21-Jul-2018 Intent Fast DO, Sangeetha A Fast DO, Sangeetha A SCREENING DIGITAL TOMOSYNTHESIS OF On: 21-Jul-2018 Intent BREAST ([id number])By: Fast DO, Sangeetha A Fast DO, Sangeetha A B 12 Injection, 1000 mcg (J3420)By: On: 31-May-2018 Intent Fast DO, Sangeetha A Fast DO, Sangeetha A Comments: Lot#[id number] EXP:[id number] given:left deltoid Given By: clarita craig ABN signed CT - Abdomen (IV Contrast Needed)By: On: 31-May-2018 Intent Fast DO, Sangeetha A Fast DO, Sangeetha A Doppler Ultrasound OtherBy: Fast DO, On: 19-May-2018 Intent Sangeetha A Fast DO, Sangeetha A Comments: left arm ULTRASOUND OF LIVER ([id number])By: On: 24-Feb-2018 Intent Jennifer Rios MD PFT - CompleteBy: Fast DO, Sangeetha A On: 21-Oct-2017 Intent Fast DO, Sangeetha A Comments: at [facility] SCREENING DIGITAL TOMOSYNTHESIS OF On: 21-Oct-2017 Intent BREAST ([id number])By: Fast DO, Sangeetha A Comments: end of oct Fast DO, Sangeetha A EsophagramBy: Fast DO, Sangeetha A Fast On: 21-Oct-2017 Intent DO, Sangeetha A Comments: with 12 mm tablet ELECTROCARDIOGRAM, COMPLETE (ECG) On: 21-Oct-2017 Intent ([id number])By: Fast DO, Sangeetha A Fast DO, Sangeetha A Flu Vaccine (Quadrivalent) 44959Xj: On: 07-Jun-2017 Intent Fast DO, Sangeetha A [...] DO, Sangeetha A DEXA SCAN AXIAL SKELETON ([id number])By: On: 16-Aug-2016 Intent Fast DO, Sangeetha A Fast DO, Sangeetha A MAMMOGRAM, SCREENING, BOTH BREAST On: 16-Aug-2016 Intent ([id number])By: Fast DO, Sangeetha A Fast DO, Sangeetha A ELECTROCARDIOGRAM, COMPLETE (ECG) On: 16-Aug-2016 Intent ([id number])By: Fast DO, Sangeetha A Fast DO, Sangeetha A Flu Vaccine (Quadrivalent) 30733Kv: On: 16-Aug-2016 Intent Fast DO, Sangeetha A Fast DO, Sangeetha A Comments: FLUlot: [id number]/09site:Lt deltoidroute:IMdose:.5mlDEMICK, [place] ADMINISTRATION OF INFLUENZA VIRUS On: 16-Aug-2016 Intent VACCINE (G0008)By: Fast DO, Sangeetha A Fast DO, Sangeetha A Ultrasound - ThyroidBy: Fast DO, On: 10-Nov-2015 Intent Sangeetha A Fast DO, Sangeetha A Ultrasound - LiverBy: Fast DO, Sangeetha On: 10-Nov-2015 Intent A Fast DO, Sangeetha A Flu Vaccine (Quadrivalent) 81526Fp: On: 08-Aug-2015 Intent Fast DO, Sangeetha A Fast DO, Sangeetha A Comments: Lot #[id number]-L dltd, IMDose prefilled syringegiven by:SIMONE Jasso and ABN signed MAMMOGRAM, SCREENING, BOTH BREAST On: 08-Aug-2015 Intent ([id number])By: Fast DO, Sangeetha A Fast DO, Sangeetha A Ultrasound - ThyroidBy: Fast DO, On: 08-Aug-2015 Intent Sangeetha A Fast DO, Sangeetha A Ultrasound - LiverBy: Fast DO, Sangeetha On: 08-Aug-2015 Intent A Fast DO, Sangeetha A ADMINISTRATION OF PNEUMOCOCCAL On: 01-Nov-2014 Intent VACCINE (G0009)By: Fast DO, Sangeetha A Fast DO, Sangeetha A PNEUM VAC ADLT/IMUMNOSPR, SBC/INTRM On: 01-Nov-2014 Intent ([id number])By: Fast DO, Sangeetha A Fast DO, Comments: Lot:[id number]:02/29/16Dose:0.5mgRoute:imSite:l armGiven By:BATSHEVA signed Sangeetha A Ultrasound - LiverBy: Fast DO, Sangeetha On: 05-Jul-2014 Intent A Fast DO, Sangeetha A BILATERAL MAMMOGRAMS (79427)By: Fast On: 05-Jul-2014 Intent DO, Sangeetha A Fast DO, Sangeetha A Ultrasound - ThyroidBy: Fast DO, On: 05-Jul-2014 Intent Sangeetha A Fast DO, Sangeetha A ADMINISTRATION OF INFLUENZA VIRUS On: 05-Jul-2014 Intent VACCINE (G0008)By: Fast DO, Sangeetha A Comments: Influenzalot:[id number]:03/25/2015dose:0.5mLRoute: IMlocation:R armgiven by:marika Fast DO, Sangeetha A FLU VAC, SPLIT, >3 YEARS, INTRAMUSC On: 05-Jul-2014 Intent (98825)By: Tavon DO, Sangeetha A Fast DO, Sangeetha A INFUSION, NORMAL SALINE SOLUTION , On: 15-Apr-2014 Intent 250 CC (J7050)By: Angelina Winn CNP Rocephon Injection, 1 Gm (J0696)By: On: 15-Apr-2014 Intent Angelina Winn CNP Comments: Rocephin 1gmLot #[id number]. [id number] in R hand x 1 stick with [...] Contrast On: 08-Jan-2014 Intent Needed)By: Tavon DAVIS, Sangeetha A Fast DO, Sangeetha A ADMINISTRATION OF INFLUENZA VIRUS On: 27-Jul-2013 Intent VACCINE (G0008)By: Fast DO, Sangeetha A Fast DO, Sangeetha A FLU VAC, SPLIT, >3 YEARS, INTRAMUSC On: 27-Jul-2013 Intent (51156)By: Fast DO, Sangeetha A Fast DO, Sangeetha A Eprescribed prescriptions (G8553)By: On: 04-Jun-2013 Intent Delisa Melendez LPN SPECIMEN HANDLING/TRANSPORT On: 04-Jun-2013 Intent (56782)By: Delisa Melendez LPN INFUSION, NORMAL SALINE SOLUTION , On: 15-Feb-2013 Intent 1000 CC (Special Coverage Comments: 500 cc Instructions Apply. See MCM: 2049) (J7030)By: Jennifer Rios MD HYDRATION IV INFUSION, INIT On: 15-Feb-2013 Intent (93210)By: Jennifer Rios MD Ultrasound - ThyroidBy: Fast DO, On: 19-Jan-2013 Intent Sangeetha A Fast DO, Sangeetha A MAMMOGRAM, SCREENING, BOTH BREASTS On: 19-Jan-2013 Intent (43295)By: Fast DO, Sangeetha A Fast DO, Comments: due in january Sangeetha A Eprescribed prescriptions (G8553)By: On: 19-Jan-2013 Intent Isabella Grigsby Pulse Oximetry (49018)By: Seb, On: 29-Sep-2012 Intent Isabella Comments: 98% [...] MAMMOGRAM, SCREENING, BOTH BREASTS On: 24-Jan-2012 Intent (76503)By: Fast DO, Sangeetha A Fast DO, Sangeetha A TDAP VACCINE >7 IM (12320)By: Fast On: 04-Oct-2011 Intent DO, Sangeetha A Fast DO, Sangeetha A Comments: Lot:[id number]:08/12/13Amt:prefilledRoute:IMSite:right deltGiven By: NATALEE Spence Aerosol Treatment (57345)By: Blanca On: 26-Aug-2011 Intent Jennifer KING Pulse Oximetry (44129)By: Blanca On: 26-Aug-2011 Intent Jennifer KING SPECIMEN HANDLING/TRANSPORT On: 23-Jul-2011 Intent (31147)By: Delisa Melendez LPN FLU VAC, SPLIT, >3 YEARS, INTRAMUSC On: 05-Jul-2011 Intent (02089)By: Isabella Grigsby Comments: Lot #[id number]/20/12Site-left deltoidgiven by: Lisa Bello LPN Ultrasound - ThyroidBy: Fast DO, On: 05-Jul-2011 Intent Sangeetha A Fast DO, Sangeetha A MAMMOGRAM, SCREENING, BOTH BREASTS On: 05-Jul-2011 Intent (74945)By: Fast DO, Sangeetha A Fast DO, Sangeetha A ADMINISTRATION OF INFLUENZA VIRUS On: 05-Jul-2011 Intent VACCINE (G0008)By: Isabella Grigsby Eprescribed prescriptions (G8553)By: On: 04-Jun-[address] DO CT - Brain/HeadBy: Fast DO, Sangeetha A On: 07-Oct-2010 Intent Fast DO, Sangeetha A Comments: with and without contrast MAMMOGRAM, SCREENING, BOTH BREASTS On: 26-Jun-2010 Intent ([id number])By: Fast DO, Sangeetha A Fast DO, Sangeetha A ADMINISTRATION OF INFLUENZA VIRUS On: 26-Jun-2010 Intent VACCINE (G0008)By: Fast DO, Sangeetha A Fast DO, Sangeetha A FLU VAC, SPLIT, >3 YEARS, INTRAMUSC On: 26-Jun-2010 Intent (73761)By: Fast DO, Sangeetha A Fast DO, Comments: Lot:[id number]:12/2010Dose:0.5mlRoute:IMSite:Left DeltoidGiven by: HEIDI Alberto Sangeetha A Ultrasound - ThyroidBy: Fast DO, On: 07-Jan-2010 Intent Sangeetha A Fast DO, Sangeetha A CT - Spine/CervicalBy: Fast DO, On: 15-Dec-2009 Intent Sangeetha A Fast DO, Sangeetha A Comments: 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 -- need to rule out Pulse Oximetry (65119)By: Fast DO, On: 09-Jul-2009 Intent Sangeetha A Fast DO, Sangeetha A Spirometry (01178)By: Fast DO, On: 10-Jul-2009 Intent Sangeetha A Fast DO, Sangeetha A Comments: good effort and curve- mild restriciton Radiology - Chest- PA and LatBy: On: 09-Jul-2009 Intent Fast DO, Sangeetha A Fast DO, Sangeetha A Pulse Oximetry (05927)By: Fast DO, On: 10-Jul-2009 Intent Sangeetha A Fast DO, Sangeetha A Comments: 98 FLU VAC, SPLIT, >3 YEARS, INTRAMUSC On: 09-Jul-2009 Intent (66304)By: Isabella Grigsby Comments: Lot #[id number]-right deltoidDose0.5mlgiven by Juventino Nye LPN IMMUNIZ ADMNIN, 1 VAC, SNGL/COMBO On: 09-Jul-2009 Intent (58315)By: Isabella Grigsby EKG (63116)By: Fast DO, Sangeetha A On: 10-Oct-2008 Intent [...] ADMNIN, 1 VAC, SNGL/COMBO On: 10-Jul-2008 Intent (98729)By: Fast DO, Sangeetha A Fast DO, Sangeetha A FLU VAC, SPLIT, >3 YEARS, INTRAMUSC On: 10-Jul-2008 Intent ([id number])By: Fast DO, Sangeetha A Fast DO, Comments: injection given in left deltoid, pt tolerated welllot # [id number] Sangeetha A Holter Monitor 24 hrsBy: Fast DO, On: 10-Jul-2008 Intent Sangeetha A Fast DO, Sangeetha A EKG (18086)By: Marlene Reddy On: 10-Jul-2008 Intent Comments: ekg [...] Sangeetha A Fast DO, Sangeetha A Planned Supplies OXYGEN (Nasal Gas) Quantity: 30 On: 08-Sep-2018 Intent Refills: 11By: Amelia Cota LPN Comments: Home Oxygen: Per overnight pulse ox, attached. Instructions Name Dates Details SOB (shortness of [...] Abnormal glucose tolerance test Encounters Review On: 08-Sep-2018 9:59 Encounter Diagnosis: Nocturnal hypoxia, CHF (congestive heart failure) [facility] Office Visit On: 04-Sep-2018 11:34 Encounter Reason: [...] some palps- supposed to see rosetta in [facility] Diagnosis: BMI 31.0-31.9,adult, Nonsmoker, SOB (shortness [...] using tylenol and will go back to [place] if need be for shot-sugar fine-n foot [...] off metformin and lisinopril andthen went to [place] for couple weeks then had multiple falls sent back to hospital and transferred to [facility] there for few weeks then to [...] fasting blood sugars : (was lower before [place] and 139 last week fasting in the [...] Patient has been compliant with instructions. Current wv End: 01-Mar-2017 9:26 dication use: no side [...] anxiety and depression. Note for Physical exam: [facility] Wellness Physical- she is down 107 [...] from Need for immunizati on against influenza), [facility] WELLNESS, Encounter for screening mammogram for [...] Reason for hospitalization abdominal pain (Went to [facility] on 02/28/15). Hospitalization details include: abnormal [...] is helping her mood- has followup in [place] may 04 - her weight down 20 [...] heart failure doctor next week at [facility] - -- mood ebs and flows- [...] of all the problems -goes back to [facility] on tuesday and psych in 2 weeksEncounter [...] or less). Note for Follow up for strategy director [facility] medical issues: Pt's insurance wont cover [...] pounds with her cancer- she saw a director cost in [facility] for her tachycardia and they told [...]
--- OUTSIDE RECORDS SUMMARY | 2018-10-21 22:55 | XMS RPT_ITS | Continuity of Care Document ---
:1965 Author Organization [facility] Address [facility] [address] [place] [address] Phone Care Team Providers Name Role Phone [...] M20 20 MEQ Oral Tablet Extended Release 1 (one) Tablet ER bid for 30 days Quantity: 60 {Tablet} Refills: 3 Ordered:08-Sep-2018 Sangeetha JAVEDbud DAVIS Sangeetha A Start : 08-Sep-2018 Active LamoTRIgine [...] Jennifer Rios MD Start : 17-Jan-2018 Active OXYGEN (Nasal Gas) (Free Text) 1 (one) Gas 2L NC QHS for 30 days Quantity: 30 {QS} Refills: 11 Ordered:08-Sep-2018 Long TRAP SETTER, Amelia L Start : 08-Sep-2018 Active Comments:Home Oxygen: Per overnight pulse ox, attached. PEN NEEDLES, 31G X 8 MM (Miscellaneous) [...] DO, Sangeetha A Start : 14-Aug-2018 Active Spironolactone 50 MG Oral Tablet 1 (one) Milligram qd for 30 days Quantity: 30 {Milligram} Refills: 3 Ordered:08-Sep-2018 Fast DO, Sangeetha AFast DO, Sangeetha A Start : 08-Sep-2018 Active Synthroid 75 MCG Oral Tablet 1 [...] Quantity: 10 {Tablet} Refills: 0 Ordered:23-Feb-2018 Long TRAP SETTER, Amelia L Start : 23-Feb-2018 Active AMITIZA, 24MCG (Oral Capsule) 1 Capsule Capsule bid for 0 days Quantity: 32 {Capsule} Refills: 0 Ordered:09-Feb-2016 Elodia Baxter Start : 27-Jul-2013 End : 09-Feb-2016 Inactive Amitriptyline HCl 10 MG Oral Tablet 1-2 Tablet qhs prn for 0 days Quantity: 60 {Tablet} Refills: 3 Ordered:19-May-2018 Amelia Cota LPN Start : 21-Oct-2017 End : 19-May-2018 Inactive [...] days Quantity: 30 {Tablet} Refills: 3 Ordered:06-Jun-2006 DO, Sangeetha AFast DO, Sangeetha A Start [...] Quantity: 30 {Tablet} Refills: 0 Ordered:05-Jul-2011 Al TRAP SETTERDelisa Chaidez Start : 05-Jul-2011 End : 04-Aug-2011 Inactive Cephalexin 500 MG Oral Capsule 1 (one) Capsule Capsule tid for 0 days Quantity: 21 {Capsule} Refills: 0 Ordered:04-Sep-2018 Fast DO, Sangeetha AFast DO, Sangeteha A Start : 19-May-2018 End : 04-Sep-2018 [...] : 25-Jan-2018 End : 19-May-2018 Inactive ERGOCALCIFEROL, 32056NOGY (Oral Capsule) 1 (one) Capsule Capsule twice [...] Quantity: 30 {Tablet} Refills: 0 Ordered:05-Jul-2011 Al NATALEEDelisa Start : 05-Jul-2011 End : 04-Aug-2011 Inactive [...] Quantity: 30 {Tablet} Refills: 0 Ordered:05-Jul-2011 Al ALBRIGHTYaminie Start : 05-Jul-2011 End : 04-Aug-2011 Inactive LORAZEPAM, 0.5MG (Oral Tablet) 1 tab qm, noon and 2 q hs for 0 days Refills: 0 Ordered:13-May-2010 Isabella GrigsbyInactive LYRICA, 50MG (Oral Capsule) 1 bid (50 MG) Inactive LYRICA, 50MG (Oral Capsule) 1 Capsule bid for 30 days Quantity: 60 {Capsule} Refills: 0 Ordered:05-Jul-2011 Ricardo Melendez LPNsie Start : 05-Jul-2011 End : 04-Aug-2011 Inactive MACROBID, 100MG (Oral Capsule) 1 (one) Capsule bid for 10 days Quantity: 20 {Capsule} Refills: 0 Ordered:18-Apr-2015 Amelia Cota LPN Start : 18-Apr-2015 End : 28-Apr-2015 Inactive Comments:instead of the pcn called in earlier dt mtx interaction MACRODANTIN, 100MG (Oral Capsule) 1 Capsule bid for 10 days Quantity: 20 {Capsule} Refills: 0 Ordered:23-Jul-2011 Lillianeffie LEWISAngelina Start : 23-Jul-2011 End : 02-Aug-2011 Inactive MAXITROL, 3.5-21489-6.1 (Ophthalmic Ointment) apply to eye lids as directed q hs for 0 days Refills: 0 Ordered:26-Aug-2011 ALVIN lAlen End : 26-Aug-2011 Inactive Methotrexate 2.5 MG [...] hs (50 MG) Inactive Comments:Dr. Hankins NYSTATIN, 972972PSRQ/ML (Mouth/Throat Suspension) 5cc Suspension 5 times daily for 10days. for 10 days Refills: 0 Ordered:18-May-2010 Tavon DO, Sangeetha AFast DO, Sangeetha A [...] Start : 13-May-2010 End : 12-Jun-2010 Inactive TAMIFLU, 75MG (Oral Capsule) 1 Capsule [...] days Quantity: 1 {Solution} Refills: 3 Ordered:26-Jun-2010 Tavon DAVIS Sangeetha AFast DO, Sangeetha A Start : 26-Jun-2010 End : 26-Jun-2010 Discontinued CELEXA, 20MG (Oral Tablet) 1 (one) Tablet qd for 0 days Quantity: 90 {Tablet} Refills: 3 Ordered:09-Sep-2008 Tavon DO Sangeetha AFast DO, Sangeetha A Start : 09-Sep-2008 End : 09-Sep-2008 Discontinued CELEXA, 40MG (Oral Tablet) 1 qd for 0 days Refills: 0 Ordered:10-Nov-2015 LesliePaul grayson Start : 12-May-2012 End : 10-Nov-2015 Discontinued COLACE, 100MG (Oral Capsule) 1 Capsule daily for 0 days Quantity: 30 {Capsule} Refills: 0 Ordered:27-Jul-2013 Tavon DAVIS Sangeetha TEGANast DO, Sangeetha A Start : 27-Jul-2013 End : 27-Jul-2013 Discontinued EFFEXOR XR, 75MG (Oral Capsule Extended Release 24 Hour) 1 (one) Capsule ER 24HR qd for 0 days Quantity: 90 {Capsule_ER_24HR} Refills: 3 Ordered:09-Sep-2008 Tavon DAVIS Sangeetha العراقي DO, Sangeetha A Start : [...] Quantity: 90 {Tablet} Refills: 3 Ordered:15-Aug-2006 Mast JOSH Maria Teresa Start : 15-Aug-2006 End : 03-Oct-2006 Discontinued [...] Refills: 3 Ordered:24-Apr-2013 Sangeetha Irvin DO, DO, Debra A Start : 24-Apr-2013 End : 24-Apr-2013 Discontinued ONGLYZA, 5MG (Oral Tablet) 1 Tablet qd for 0 days Quantity: 30 {Tablet} Refills: 3 Ordered:24-Apr-2013 Sangeetha Irvin DO, DO, Debra A Start : 24-Apr-2013 End [...] Refills: 0 Ordered:25-Aug-2012 Sangeetha Irvin DO, DO, Debra A Start : 25-Aug-2012 End : 25-Aug-2012 Discontinued Comments:Dr. Clark VICODIN, 5-500MG (Oral Tablet) 1 (one) Tablet q 6hrs, prn for 0 days Quantity: 30 {Tablet} Refills: 0 Ordered:19-May-2018 Long TRAP SETTERAmelia L Start : 12-May-2012 End : 19-May-2018 Discontinued Comments:This order discontinued per [facility]. ZOFRAN ODT, 4MG (Oral Tablet Dispersible) qd prn nausea (4 MG) End : 08-Aug-2015 Discontinued Comments:[facility] Allergies and Adverse Reactions Name Dates [...] w/ Contrast Result: Comments: See Note; NOTES: [facility] Cardiovascular Services [address] [place] [address] Echo Complete W/ Contrast 09/06/18 1002 MR#: [id number] Acct: [id number] Name: IFEOMA DÍAZ Rep #: [id number] : 1965 53 From: Boone Ch MD Attending Dr: Sangeetha Irvin DO Status: REG CLI Ordering Dr: Sangeetha Irvin DO Date: 09/06/18 Location: [facility] Sex: F C Admitted: Reason F [...] Date Dictated: 09/06/18 1002 Date Transcribed: 09/06/18 1534 Golf Manager: Signed 04-Sep-2018 CTA Chest W/WO Contrast Result: Comments: See Note; NOTES: [facility] Imaging Services [address] [place] [address] CTA Chest W/WO Contrast MR#: [id number] Acct: [id number] Name: IFEOMA ASHRAF Rep #: : 1965 F 53 From: Ziggy Santos MD PCP: Sangeetha Irvin DO Status: REG CLI Study: CTA Chest W/WO Contrast Date of Exam: 09/04/18 Exam# [id number] Ordering Dr: Sangeetha Irvin DO STUDY: CTA [...] Service support , CC: Sangeetha Irvin DO Golf Manager: Signed 14-Jul-2018 Chest PA and Lateral Result: Comments: See Note; NOTES: [facility] Imaging Services [address] [place] [address] Chest PA and Lateral MR#: [id number] Acct: [id number] Name: IFEOMA ASHRAF Rep #: [id number] : 1965 F 53 From: Dimitris Valderrama DO PCP: Sangeetha Irvin DO Status: REG CLI Study: Chest PA and Lateral Date of Exam: 07/14/18 Exam# [id number] Ordering Dr: Oscar Todd FEATHERER-C STUDY: X-RAY CHEST REASON FOR EXAM: Female, [...] Dimitris Valderrama DO at 8:47 EDT Tel [phone], Service support , CC: NUNU Todd; Sangeetha Irvin DO Golf Manager: Signed 10-Jun-2018 Pacemaker Check Result: Comments: See Note; NOTES: [facility] [address] [place] [address] Pacemaker Check Date of Service: 06/09/18 0909 MR#: [id number] Acct: [id number] Name: IFEOMA ASHRAF Rep #: [id number] : 1965 From: Danica Pickering Age/Sex: 53/F Location: [facility] Status: Signed Billing Codes ICD Device Billing: ICD Dev Prog Eval, Single 06/09/18 0913 <Elec tronically signed by Danica Pickering > Date Danica Pickering 06/10/18 1406<Electronically signed by Boone Ch MD> Junior Signat ure: Date (if applicable) Boone Ch MD CC: 08-Jun-2018 Cardiology Visit Report Result: Comments: See Note; NOTES: [facility] [address] [place] [address] OFFICE VISIT Date of Service: 05/31/18 MR#: [id number] Acct: [id number] Name: IFEOMA ASHRAF Rep #: [id number] : 1965 Provider: NUNU Todd Age/Sex: 53/F Location: [facility] Status: Signed with Addenda ADDENDUM by NUNU [...] ultimately discharged home with requested follow-up with [facility] neurology or local neurolo gist in [...] defibrillator (ICD) Z95.810 Generator change 11/13 @ [facility] LUPE Chapman Pacemaker check in February [...] prior to saving. Follow Up 6 Months (TREASURY MANAGEMENT SALES CONSULTANT) 05/31/18 (GIUSEPPE) 06/01/18 0747 <Electronically signed [...] ral regurgitation and tricuspid regurgitation. She presented [facility] on March 08, 2018 after being found unresponsive in her bathroom. During this hospitalization she was found to have an acute left axillary and left brachial vein DVT and was started on Eliquis. She presented to [facility] emergency department in March 2018 [...] 05/31/18 Pulse Rate 100 Intake Visit Reasons: [facility] to [facility] to [facility] to [place] Allergies amitriptyline Adverse Reaction (Severe, Verified 05/31/18 [...] rter-defibrillator (ICD) Z95.810 Generator change 11/13 @ [facility] LUPE Chapman Pacemaker check in February 2018 showed no VT/VF episodes since October 2017. She does not have a routine fo llow-up scheduled. This will be arranged for her. 3. Nonrheumatic mitral (valve) insufficiency I34.0 Aleida - LUPE Black Her echocardiogram in February 2018 showed moderately [...] left upper extremity I82.622 Plan - LUPE Balck This is being followed by primary care physician. At this time she will continue with factor Xa inhibitor. 6. Anemia, unspecified type D64.9 Plan - ULPE Black Her most recent hemoglobin on 05/25/18 [...] prior to saving. Follow Up 6 Months (TREASURY MANAGEMENT SALES CONSULTANT) 05/31/18 (GIUSEPPE) Coding Level of Care [...] <Electronically signed by Oscar ANDRADE> Date Oscar powelligndequan Signature: Date (if applicable) CC: Sangeetha Irvin DO 05-Jun-2018 Oncology Visit Report Result: Comments: See Note; NOTES: [facility] On[facility] [address] [place] [address] [place] [address] OFFICE VISIT Date of Service: 06/05/18 1314 MR#: [id number] Acct: [id number] Name: TYLOR ASHRAF Dm Pulido Rep #: [id number] : 1965 From: Simeon Gresham MD Age/Sex: 53/F Location: [facility] Status: Signed Subjective - Date of Service Date of Service:: 06/05/18 - Chief Complaint Follow up DLBCL - His tory of Present Illness 53-year-old woman was diagnosed with non-Hodgkin's lymphoma, diffuse large B cell, stage IV of the uterine cervix with 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 She had [...] stem cell transplant in February 2007 at [facility] with complete remission. She is on observation, [...] Chronic Code Visit Office Visits / Consults: 29744 OV L3 Est 1325 <Electronically signed by Simeon Gresahm MD> Date Simeon Gresham MD Cosigner Signature: Date (if applicable) CC: 26-May-2018 Venous Duplex Upper Extremity Result: Comments: See Note; NOTES: [facility] Cardiovascular Services [address] [place] [address] Venous Duplex US, Unilateral 05/25/18 0903 MR#: [id number] Acct: [id number] Name: IFEOMA SILVA Rep #: [id number] : 1965 53 From: Juanjo Russo MD Attending Dr: Sangeetha Irvin DO Status: REG CLI Ordering Dr: Sangeetha Irvin DO Date: 05/25/18 Location: [facility] Sex: F C Admitted: Lois pedraza For [...] MD CC: Sangeetha Irvin DO Date Dictated: 05/25/18902 Date Transcribed: 05/26/18 163 Golf Manager: Signed 06-Apr-2018 Chest 1 View (Portable) Result: Comments: See Note; NOTES: [facility] Imaging Services [address] [place] [address] Chest 1 View (Portable) MR#: [id number] Acct: [id number] Name: IFEOMA ASHRAF Rep #: [id number] : 1965 F 53 From: [facility] PCP: Sangeetha Irvin DO Status: PRE ER Study: Chest 1 View (Portable) Date of Exam: 04/06/18 Exam# [id number] Ordering Dr: Dejuan Bacon MD STUDY: X-RAY [...] , CC: Sangeetha Irvin DO; Dejuan Bacon Golf Manager: Signed 05-Apr-2018 Brain/Head without Contrast Result: Comments: See Note; NOTES: [facility] Imaging Services [address] [place] [address] Brain/Head without Contrast MR#: [id number] Acct: [id number] Name: IFEOMA ASHRAF Rep # : [id number] : 1965 F 53 From: Levy Lucas DO PCP: Sangeetha Irvin DO Status: REG CLI Study: Brain/Head without Contrast Date of Exam: 04/05/18 Exam# [id number] Ordering Dr: Oscar Bartlett MD STUDY : [...] 14:06 EDT Tel , Service support 1- [phone], N.B. : The above information has been verbally conveyed by Levy Lucas DO to connected , Covering Physician, on 04/05/2018 14:06:03 (ET). CC: Sangeetha Irvin DO; Oscar Bartlett MD Golf Manager: Signed 05-Apr-2018 Brain/Head without Contrast Result: Comments: See Note; NOTES: [facility] Imaging Services [address] [place] [address] Brain/Head without Contrast MR#: [id number] Acct: [id number] Name: IFEOMA ASHRAF Rep # : [id number] : 1965 F 53 From: Levy Lucas DO PCP: Sangeetha Irvin DO Status: REG CLI Study: Brain/Head without Contrast Date of Exam: 04/05/18 Exam# [id number] Ordering Dr: Oscar Bartlett MD STUDY : [...] 14:06 EDT Tel , Service support 1- [phone], N.B. : The above information has been verbally conveyed by Levy Lucas DO to connected , Covering Physician, on 04/05/2018 14:06:03 (ET). CC: Sangeetha Irvin DO; Oscar Bartlett MD Golf Manager: Signed 31-Mar-2018 Cardiology Visit Report Result: Comments: See Note; NOTES: [facility] [address] [place] [address] OFFICE VISIT Date of Service: 03/31/18 MR#: [id number] Acct: [id number] Name: Ifeoma Ashraf Rep #: [id number] : 1965 Provider: Boone Ch MD Age/Sex: 53/F [place] [facility] [place]: Signed HPI HPI Chief Complaint: Follow-up [...] who presented to the emergency department at [facility] on 03/08/2018 aft er being [...] care unit. She was eventually transferred to [facility]. 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 I would like to obtain a adjunct instructor chemistry ry profile to be able to appropriately adjust any diuretics. At this juncture it may be prudent to add Lasix 40 mg a day to her current regimen. 2. Presence of implantable cardioverter-defibrillator (I CD) Z95.810 Generator change 11/13 @ [facility] Dr. Ahmadi Plan She does have [...] months. 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 Cardiovascular Services [address] [place] [address] 11/22/17 0803 MR#: [id number] Acct: [id number] Name: IFEOMA ASHRAF Rep #: [id number] [...] Date Dictated: 11/22/17 0803 Date Transcribed: 11/22/171517 Golf Manager: Signed 18-Nov-2017 Office Visit Report Result: Comments: See Note; NOTES: [place] [address] [place] [address] OFFICE VISIT Date of Service: 11/17/17 MR#: [id number] Acct: [id number] Patient: IFEOMA ASHRAF Rep #: [id number] : 1965 Provider: Danica Pickering Age/Sex: 52/F [...] n office Interview Reason: scheduled follow up Machine Turner: [employer] Name: Lan Mckeon VR Model: [id number] Serial #: [id number] Implant Date: 11/10/17 Year(s): 0 Implant Physician: [...] and No drainage Bibiana ds Lead #1 Machine Turner Lead 1: [employer]. [place] Model Lead 1: 7121Q/58 Serial# Lead 1: [id number] Date Implanted Lead 1: 10/10/09 Position Lead [...] Operative Report Result: Comments: See Note; NOTES: [facility] Medical Records Department [address] [place] [address] Operative Report 11/10/17 1148 MR#: [id number] Acct: [id number] Name: SALOME ASHRAF Rep #: [id number] : 1965 52 From: Lior Ahmadi MD PCP: Sangeetha Irvin DO Status: REG [facility] Location: [facility] Operative Report Date of Procedure: 11/10/17 Preoperative diagnosis is device at end of life for normal battery depletion. Postoperative diagnosis same as above. After informed consent and IV antibiotics the patient was brought to the [facility] and the ski n over [...] chart documents provided by the device company veterans contact representative procedure summary. 11/10/17 1150 <Electronically signed by Lior Ahmadi MD > Date Lior Ahmadi MD CC: Sangeetha Irvin DO; Lior Ahamdi MD Signed 03-Nov-2017 Office Visit Report Result: Comments: See Note; NOTES: [facility] [place] [address] OFFICE VISIT Date of Service: 11/03/17 MR#: [id number] Acct: [id number] Patient: IFEOMA ASHRAF Rep #: [id number] : 1965 Provider: Danica Pickering Age/Sex: 52/F Location: [facility] Status: Signed Comments Summary Comments: Written and [...] in office Interview Reason: routine follow up Machine Turner: St. Jimmie Name: Current VR Model: 1211-36Q ICD Serial #: [id number] Implant Date: 10/10/09 Year(s): 8 Implant Physician: [...] Model Lead 1: 7121Q/58 Serial# Lead 1: [id number] Date Implanted Lead 1: 10/10/09 Position Lead [...] Visit Report Result: Comments: See Note; NOTES: [facility] [address] [place] [address] OFFICE VISIT Date of Service: 11/03/17 MR#: [id number] Acct: [id number] Name: IFEOMA ASHRAF Rep #: [id number] : 1965 Provider: Boone Ch MD Age/Sex: 52/F Location: [facility] Status: Signed HPI HPI Details: IFEOMA ASHRAF, [...] 25 to 29 (25% per echo 03/11/2015) [facility] Medical History Type 2 diabetes mellitus without [...] being followed up at the [facility]. She is also on spironolactone and sh [...] and Lateral Result: Comments: See Note; NOTES: [facility] Imaging Services [address] [place] [address] Chest PA and Lateral MR#: [id number] Acct: [id number] Name: IFEOMA ASHRAF Rep #: [id number] : 1965 F 52 From: Dimitris Valderrama DO PCP: Sangeetha Irvin DO Status: PRE [facility] Study: Chest PA and Lateral Date of Exam: 11/03/17 Exam# [id number] Ordering Dr: Boone Ch MD STUDY: X-RAY [...] Dimitris Valderrama DO at 18:21 EST Tel [phone], Se rvice support , CC: Boone Ch MD; Sangeetha Irvin DO Golf Manager: Signed 14-Oct-2017 Office Visit Report Result: Comments: See Note; NOTES: [facility] [place] [address] OFFICE VISIT Date of Service: 10/12/17 MR#: [id number] Acct: [id number] Patient: IFEOMA ASHRAF Rep #: [id number] : 1965 Provider: Danica Pickering Age/Sex: 52/F Location: [facility] Status: Signed Comments Summary Comments: Single Chamber ICD Evaluation: Interrogation shows No VT/VF episodes since . No Alerts noted. Left pectoral pocket/incision w/o s/s of infection or erosion. Pt offers no cardiac complaints. Presenting rhythm shows Sinus Tachycardia @ 105 bpm. Left pectoral pocket/incision w/o s/s of infection or erosion. CREATIVE MANAGER=0%. Battery longevity approx 2.9 mos. At device check in June device showed longevity of 14 mos. D/T longevity decreasing quickly pt scheduled for ICD generator el gilliam with Dr. Ahmadi on 11/10/17 @ [facility]. Lead impedances, sensing and pace/sense threshold remain stable. No parameter changes made. Counters cleared. Pt scheduled for o.v and teaching on 11/03/17 and ICD g enerator change on 11/10/17. Device Device Date Interviewed: 10/12/17 Follow- up Location: in office Interview Reason: routine follow up Machine Turner: [employer]. 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 Jimmie Model Lead 1: 7121Q/58 Serial# Lead 1: [id number] Date Implanted Lead 1: 10/10/09 Position Lead [...] IV Contrast Result: Comments: See Note; NOTES: [facility] Imaging Services [address] [place] [address] Abdomen WITH IV Contrast MR#: [id number] Acct: [id number] Name: IFEOMA ASHRAF Rep #: [id number] : 1965 F 52 From: Carl Vincent MD PCP: Sangeetha Irvin DO Status: REG CLI Study: Abdomen WITH IV Contrast Date of Exam: 06/15/17 Exam# [id number] Ordering Dr: Analisa Conway MD STUDY: CT [...] CC: Analisa Conway MD; Sangeetha Irvin DO Golf Manager: Signed 15-Jun-2017 Spine Cervical without Contras Result: Comments: See Note; NOTES: [facility] Imaging Services [address] [place] [address] Spine Cervical without Contras MR#: [id number] Acct: [id number] Name: IFEOMA ASHRAF p #: [id number] : 1965 F 52 From: Zev Mandujano MD PCP: Sangeetha Irvin DO Status: REG CLI Study: Spine Cervical without Contras Date of Exam: 06/15/17 Exam# [id number] Ordering Dr: Analisa Conway MD STUDY: CT [...] techniques were used for this CT. [facility]. FINDINGS: Normal craniovertebral junction. [...] CC: Analisa Conway MD; Sangeetha Irvin DO Golf Manager: Signed 10-Feb-2017 Spine Lumbar without Contrast Result: Comments: See Note; NOTES: [facility] Imaging Services [address] [place] [address] Verdana 4d Spine Lumbar without Contrast MR#: [id number] Acct: [id number] Name: MARISEL ASHRAF Rep #: [id number] : 1965 F 51 From: Brian Gill MD PCP: Fast DO,Sangeetha Status: REG CLI Study: Spine Lumbar without Contrast Date of Exam: 02/10/17 Exam# [id number] Ordering Dr: Analisa Carr i, MD STUDY: [...] CC: Analisa Conway MD; Sangeetha Irvin DO Golf Manager: Signed 20-Jan-2017 Liver Result: Comments: See Note; NOTES: [facility] Imaging Services [address] [place] [address] Verdana 4d Liver MR#: [id number] Acct: [id number] Name: IFEOMA ASHRAF Rep #: [id number] : 1965 F 51 From: Vincent Bui DO PCP: Sangeetha Irvin DO Status: REG CLI Study: Liver Date of Exam: 01/20/17 Exam# [id number] Ordering Dr: Sangeetha Irvin DO STUDY: ABDOMINAL [...] Vincent Bui DO at 23:43 EDT Tel [phone], Service support , CC: Sangeetha Irvin DO Golf Manager: Signed 20-Jan-2017 Thyroid Result: Comments: See Note; NOTES: [facility] Imaging Services [address] [place] [address] Verdana 4d Thyroid MR#: [id number] Acct: [id number] Name: IFEOMA ASHRAF Rep #: [id number] : 1965 F 51 From: Jin Rolon PCP: Sangeetha Irvin DO Status: REG CLI Study: Thyroid Date of Exam: 01/20/17 Exam# [id number] Ordering Dr: Sangeetha Irvin DO STUDY: THYROID [...] Service support , CC: Sangeetha Irvin DO Golf Manager: Signed 17-Nov-2016 Dexa Bone Density Study (HP) Result: Comments: See Note; NOTES: [facility] Imaging Services [address] [place] [address] Verdana 4d Dexa Bone Density Study (HP) MR#: [id number] Acct: [id number] Name: COL HARPAL ASHRAF Rep #: [id number] : 1965 F 51 From: Prashant Delgadillo MD PCP: Sangeetha Irvin DO Status: REG CLI Study: Dexa Bone Density Study (HP) Date of Exam: 11/17/16 Exam# [id number] Ordering Dr: Sangeetha Irvin DO STUDY: DUAL [...] Prashant Delgadillo MD at 10:52 EST Tel [phone], Service support [phone], CC: Sangeetha Irvin DO Golf Manager: Signed 17-Nov-2016 SCREENING MAMM (CAD), BILAT Result: Comments: See Note; NOTES: [facility] Imaging Services [address] [place] [address] Verdana 4d SCREENING MAMM (CAD), BILAT MR#: [id number] Acct: [id number] Name: SALOME ASHRAF Rep #: [id number] : 1965 F 51 From: Prashant Delgadillo MD PCP: Sangeetha Irvin DO Status: REG CLI Study: SCREENING MAMM (CAD), BILAT Date of Exam: 11/17/16 Exam# [id number] Ordering Dr: Gary Irvin DO MAMMOGRAPHY - [...] biopsy of a clinically suspiciou s abnormality. [id number] Electronically Signed: Prashant Delgadillo MD at 12:55 EST Tel [phone], Service support [phone], CC: Sangeetha Irvin DO Golf Manager: Signed 17-Nov-2016 SCREENING MAMM (CAD), BILAT Result: Comments: See Note; NOTES: [facility] Imaging Services [address] [place] [address] Verdana 4d SCREENING MAMM (CAD), BILAT MR#: [id number] Acct: [id number] Name: SALOME ASHRAF Rep #: [id number] : 1965 F 51 From: Prashant Delgadillo MD PCP: Sangeetha Irvin DO Status: REG CLI Study: SCREENING MAMM (CAD), BILAT Date of Exam: 11/17/16 Exam# [id number] Ordering Dr: Gary Irvin DO ADDENDUM by [...] delay biopsy of a clinically suspicious abnormality. [id number] Electronically Signed: Prashant Delgadillo MD at 13:07 EST Tel [phone], Service support [phone], 11/17/16 1315 Date cc: Sangeetha Irvin DO [...] was performed. COMPARISON: Comparison is made with [facility] r study dated August 14, 2015 [...] delay biopsy of a clinically suspicious abnormality. [id number] Electronically Signed: Prashant Delgadillo MD at 12:55 EST Tel [phone], Ser vice support [phone], CC: Sangeetha Irvin DO Golf Manager: Signed 19-Dec-2015 Liver Result: Comments: See Note; NOTES: [facility] Imaging Services [address] [place] [address] Verdana 4d Liver MR#: [id number] Acct: [id number] Name: IFEOMA ASHRAF Rep #: [id number] : 1965 F 50 From: Ziggy Santos MD PCP: Sangeetha Irvin DO Status: REG CLI Study: Liver Date of Exam: 12/19/15 Exam# [id number] Ordering Dr: Sangeetha Irvin DO STUDY: ABDOMINAL [...] at 10:55 EDT Tel , Service support [phone], CC: Sangeetha Irvin DO Golf Manager: Signed 19-Dec-2015 Thyroid Result: Comments: See Note; NOTES: [facility] Imaging Services [address] [place] [address] Verdana 4d Thyroid MR#: [id number] Acct: [id number] Name: MARIOWAQASIFEOMA Abreu ep #: [id number] : 1965 F 50 From: Ziggy Santos MD PCP: Sangeetha Irvin DO Status: REG CLI Study: Thyroid Date of Exam: 12/19/15 Exam# [id number] Ordering Dr: Sangeetha Irvin DO STUDY: THYROID [...] Service support , CC: Sangeetha Irvin DO Golf Manager: Signed 14-Aug-2015 Bilat Scrn Digital AND CAD Result: Comments: See Note; NOTES: [facility] Imaging Services [address] [place] [address] Verdana 4d Bilat Scrn Digital AND CAD MR#: [id number] Acct: [id number] Name: IFEOMA ASHRAF Rep #: [id number] : 1965 F 50 From: Prashant Delgadillo MD PCP: Sangeetha Irvin DO Status: REG CLI Study: Bilat Scrn Digital AND CAD Date of Exam: 08/14/15 Exam# [id number] Order ing Dr: Sangeetha Irvin DO MAMMOGRAPHY [...] Prashant Delgadillo MD at 10:49 EST Tel [phone], Service support [phone], CC: Sangeetha Irvin DO Golf Manager: Signed 10-Mar-2015 Emergency Department Summary Result: Comments: See Note; NOTES: [facility] Medical Records Department [address] [place] [address] Emergency Department Summary MR#: [id number] Acct: [id number] Name: IFEOMA RASMUSSEN Rep #: [id number] : 1965 49 From: Mayito Roldan DO PCP: Sangeetha Irvin DO Status: [facility] ER DATE OF SERVICE: 02/28/2015 Addendum [...] way. Mayito Roldan DO T: NTS JOB: [id number] 03/10/15 2329 <Electronically signed by Mayito Roldan DO> Date Mayito Roldan DO CC: Sangeetha Irvin DO Date Dictated: 02/28/15824 Date Transcribed: 02/28/15824 Golf Manager: Signed 02-Mar-2015 Emergency Department Summary Result: Comments: See Note; NOTES: [facility] Medical Records Department [address] [place] [address] Emergency Department Summary MR#: [id number] Acct: [id number] Name: IFEOMA RASMUSSEN Rep #: [id number] : 1965 49 From: Alejandro Lopez DO PCP: Sangeetha Irvin DO Status: [facility] ER DATE OF SERVICE: 02/28/2015 CHIEF [...] has plans to go [facility] on General. I will give her local surgeon's name if she wants to speak with them or she can certainly also speak with Dr. Irvin. CLINICAL IMPRESSION: Biliary colic. Alejandro Lopez DO T: ROCK JOB: [id number] 03/02/15 0743 <Electronically signed by Alejandro Lopez DO> Date Alejandro Lopez DO CC: Sangeetha Irvin DO Date Dictated: 718 Date Transcribed: 02/28/15718 Golf Manager: Signed 28-Feb-2015 Discharge Instruction Result: Comments: See Note; NOTES: [facility] Medical Records Department [address] [place] [address] Discharge Instruction 02/28/15 0639 MR#: [id number] Acct: [id number] Name: IFEOMA ASHRAF Rep #: [id number] : 1965 49 From: Alejandro Lopez DO [...] any unexpected problems, contact your doctor. Call [facility] ([phone]) or report to the closest Em ergency Room. Call 911 if necessary. 02/28/15 0640 <Electronically signed by Alejandro Lopez DO> Date Alejandro Lopez DO Cosign er Signature (If Indicated): Date CC: Sangeetha Irvin DO 28-Feb-2015 Gallbladder Result: Comments: See Note; NOTES: [facility] Imaging Services [address] [place] [address] Ultrasound Report MR#: [id number] Acct: [id number] Name: IFEOMA ASHRAF Rep #: [id number] : 1965 F 49 From: Prashant Delgadillo MD PCP: Sangeetha Irvin DO Status: REG ER Study: Gallbladder Date of Exam: 02/28/15 Exam# [id number] Ordering Dr: Alejandro Lopez DO STUDY: ABDOM [...] Prashant Delgadillo MD at 8:15 EDT Tel [phone], Service support [phone], CC: Alejandro Lopez DO; Sangeetha Irvin DO Golf Manager: Signed 11-Feb-2015 Spine Cervical without Contras Result: Comments: See Note; NOTES: [facility] Imaging Services [address] [place] [address] CAT Scan Report MR#: [id number] Acct: [id number] Name: IFEOMA ASHRAF Rep #: [id number] : 1965 F 49 From: Prashant Delgadillo MD PCP: Sangeetha Irvin DO Status: REG CLI Study: Spine Cervical without Contras Date of Exam: 02/11/15 Exam# [id number] Ordering Dr: Analisa Conway MD STUDY: CT [...] Prashant Delgadillo MD at 9:49 EDT Tel [phone], Service support [phone], CC: Analisa Conway MD; Sangeetha Irvin DO Golf Manager: Signed 18-Jul-2014 Bilat Scrn Digital & CAD Result: Comments: See Note; NOTES: [facility] Imaging Services [address] [place] [address] Breast Imaging Report MR#: [id number] Acct: [id number] Name: IFEOMA ASHRAF Rep # : [id number] : 1965 F 49 From: Prashant Delgadillo MD PCP: Sangeetha Irvin DO Status: REG CLI Exam# [id number] Ordering Dr: Sangeetha Irvin DO MAMMOGRAPHY - [...] Prashant Delgadillo MD at 8:36 EDT Tel [phone], Servi ce support [phone], CC: Sangeetha Irvin DO Golf Manager: Signed 18-Jul-2014 Liver Result: Comments: See Note; NOTES: [facility] Imaging Services [address] [place] [address] Ultrasound Report MR#: [id number] Acct: [id number] Name: IFEOMA ASHRAF Rep #: : 1965 F 49 From: Prashant Delgadillo MD PCP: Sangeetha Irvin DO Status: REG CLI Study: Liver Date of Exam: 07/18/14 Exam# [id number] Ordering Dr: Sangeetha Irvin DO STUDY: ABDOMINAL [...] Prashant Delgadillo MD at 9:34 EDT Tel [phone], Service support [phone], CC: Sangeetha Irvin DO Golf Manager: Signed 18-Jul-2014 Thyroid Result: Comments: See Note; NOTES: [facility] Imaging Services [address] [place] [address] Ultrasound Report MR#: [id number] Acct: [id number] Name: IFEOMA ASHRAF Rep #: [id number] : 1965 F 49 From: Prashant Delgadillo MD PCP: Sangeetha Irvin DO Status: REG CLI Study: Thyroid Date of Exam: 07/18/14 Exam# [id number] Ordering Dr: Sangeetha Irvin DO STUDY: THYROID [...] Delgadillo MD at 8:41 EDT T el [phone], Service support [phone], CC: Sangeetha Irvin DO Golf Manager: Signed 05-Feb-2014 Brain/Head W/WO Contrast Result: Comments: See Note; NOTES: [facility] Imaging Services [address] [place] [address] CAT Scan Report MR#: [id number] Acct: [id number] Name: IFEOMA ASHRAF Rep #: [id number] : 1965 F 48 From: Prashant Delgadillo MD PCP: Sangeetha Irvin DO Status: REG CLI Study: Brain/Head W/WO Contrast Date of Exam: 02/05/14 Exam# [id number] Ordering Dr: Sangeetha Irvin DO STUD Y: [...] Prashant Delgadillo MD at 9:19 EDT Tel [phone], Service support [phone], CC: Sangeetha Irvin DO Golf Manager: Signed Immunization Name Dates Details Influenza (3 years and up) on: 10-Jul-2008 Comments: injection given in left deltoid, pt tolerated welllot # [id number] Influenza (3 years and up) on: 09-Jul-2009 Comments: Lot #[id number]-right deltoidDose0.5mlgiven by Juventino Nye LPN Family History [...] kg/m2 Body Surface Area Calculated 2.02 m2 92-Xku-931421:59 Temperature 97.9 f Comments: Method: Temporal Pulse [...] kg/m2 Body Surface Area Calculated 2.02 m2 96-Eoq-570055:08 Temperature 97.3 f Comments: Method: Temporal Pulse [...] Value Details :59 BNP,B-Type NATRIURETIC PEPTIDE Comments: [facility] [address] [facility] [address] [place], [place], [phone] B-TYPE JACKIE PEP 819.3 pg/mL (Abnormal) Range: 0-100 :59 CBC W/Diff, Automated Comments: [facility] [address] [facility] [address] [place], [place], [address] Absolute Lymph 1.08 {X10_3/ul} (Normal) Range: 0.83-4.51 [...] 4.2-5.4 WBC 7.5 K/mm3 (Normal) Range: 4.4-11.0 37-Lei-236200:59 Comprehensive Metabolic Profil Comments: 'TROP' Serial specimen #1, #2, #3, or #4: [address] [place] [address] [address] [place], [place], [address] GAP 8 (Normal) Range: 5-15 CO2 29.0 [...] A.D.A. criteria.Please note revised GLUCOSE reference range pyudzkvrm27/02/2018. 08-Fse-628798:59 CPK Total, Creatine Kinase Comments: 'TROP' Serial specimen #1, #2, #3, or #4: [address] [place] [address] [place], [address] CPK TOTAL 30 U/L (Normal) Range: 26-192 64-Qej-156300:59 D-Dimer Quantitative (DVT/PE) Comments: [facility] [address] [place], [address] D-DIMER QUANT 1.44 {FEU/ug/m} (Abnormal) Range: 0.27-0.49 Comments: CRITICAL VALUE VERIFIED. CALLED TO SEDADTUY45/10/18 1440 Francois Quinn.RESULTS READ BACK BY SAME .D-Dimer ELEVATED (>0.49): Additional studies and clinicalassessments are indicated to conclude di agnosis of:Deep Vein Thrombosis (DVT) or Pulmonary Embolism (PE) 68-Tcm-639003:59 Troponin-I Comments: 'TROP' Serial specimen #1, #2, #3, or #4: [address] [place] [address] [place], [address] TROPONIN-I 0.030 ng/mL (Normal) Comments: TROPONIN-I EXPECTED VALUES <0.045 Negative 0.045 - 0.590 Consistent with Cardiac Damage > OR = 0.600 Critical Value Not every elevated troponin is indicative of [place]. T hesevalues should be used with clinical judgement in examiningthe patient's clinical picture for diagnosis. To establisha diagnosis of [place] versus myocardial injury, there must be ademonstrated rise and/ or fall in the troponin values, inaddition to ischemic symptoms, EKG changes, new regionalwall motion abnormality, and/or angiographical evidence. PLEASE NOTE: REFERENCE RANGES EDITED 02/06/1829-Aug-20187-Lyw-045519:44 ANCA Comments: Is Patient Fasting? [facility] (refer to report for specific site)refer to report for address and phone number Atypical pANCA <1:20 {titer} (Normal) Comments: The atypical pANCA pattern has been observed in asignificant percentage of patients with ulcerative colitis,primary sclerosing cholangitis and autoimmune hepatitis.Performed at: [facility] [id number] Director: Omar Hood PhD, Phone: [phone] PERINUCLEAR Ab <1:20 {titer} (Normal) Comments: The presence of positive fluorescence exhibiting P-ANCA orC-ANCA patterns alone is not specific for the diagnosis ofWegener's Granulomatosis (WG) or microscopic polyangiitis.Decisions about treatment sh ould not be based solely onANCA IFA results. The International ANCA Group Consensusrecommends follow up testing of positive sera with both KS-3 and MPO- ANCA enzyme immunoassays. As many as 5% serumsamp les are positive only by EIA. Ref. AM J Clin Ljiiwz1640;111:507-513. CYTOPLASMIC Ab <1:20 {titer} (Normal) 4-Wfr-219507:44 ANTINUCLEAR ANTIBODIES DIRECT Comments: [facility] (refer to report for specific site)refer to report for address and phone number LASHA-DIRECT Negative (Normal) Comments: Performed at: [facility] [id number] Director: Omar Hood PhD, Phone: [phone] 1-Mkb-178225:44 CPK Total, Creatine Kinase Comments: [facility] [address] [place], [place], [phone] CPK TOTAL 33 U/L (Normal) Range: 26-192 5-Raa-387022:44 Hemoglobin A1c Comments: [facility] [address] [place], [place], [phone] HGB A1C 10.6 % (Abnormal) Range: 4.2-6.3 9-Hyd-418659:44 PRANEETH AND PE, Random UR Comments: Is Patient Fasting? [facility] (refer to report for specific site)refer to report for address and phone number NOTE Comment (Normal) Comments: Protein electrophoresis scan will follow via computer,mail, or maintenance data analyst delivery. PRANEETH RESULT,U Comment (Normal) Comments: No monoclonality detected. M-SPIKE,UR% Not Observed % (Normal) GAMMA GLOB,U 5.5 % (Normal) BETA GLOB,U 14.2 % (Normal) EYDJD-1-RMAG,U 10.8 % (Normal) YSDNW-3-XCQW,U 7.6 % (Normal) ALBUMIN,U 62.0 % (Normal) PROTEIN,UR 27.8 mg/dL (Normal) 4-Tjh-338650:44 PRANEETH + Protein Elect, Serum Comments: Is Patient Fasting? [facility] (refer to report for specific site)refer to report for address and phone number NOTE: Comment (Normal) Comments: Protein electrophoresis scan will follow via computer,mail, or maintenance data analyst delivery. PRANEETH RESULT,S Comment (Normal) Comments: No monoclonality detected. A/G RATIO 1.2 (Normal) Range: 0.7-1.7 GLOBULIN, TOTAL 2.9 g/dL (Normal) Range: 2.2-3.9 M-SPIKE g/dL (Normal) Comments: Not Observed GAMMA GLOBULIN 0.6 g/dL (Normal) Range: 0.4-1.8 BETA GLOBULIN 1.1 g/dL (Normal) Range: 0.7-1.3 HADVF-9-FGOW 0.9 g/dL (Normal) Range: 0.4-1.0 BZXDV-9-BKMP 0.3 g/dL (Normal) Range: 0.0-0.4 ALBUMIN 3.4 g/dL (Normal) Range: 2.9-4.4 IMMUNOGL M 103 mg/dL (Normal) Range: 26-217 IMMUNO A 69 mg/dL (Abnormal) Range: 87-352 IMMUNO G 538 mg/dL (Abnormal) Range: 700-1600 PROTEIN,TOTAL 6.3 g/dL (Normal) Range: 6.0-8.5 7-Pdy-583355:44 Rheumatoid Factor Comments: [facility] [address] [place], [place], [address] RHEUMATOID FAC < 10.0 {IU/mL} (Normal) 8-Bfw-845186:44 Sjogren's Antibodies A/B Comments: [facility] (refer to report for specific site)refer to report for address and phone number Anti-SS-B < 0.2 {AI} (Normal) Range: 0.0-0.9 Anti-SS-A < 0.2 {AI} (Normal) Range: 0.0-0.9 5-Qdx-177837:44 Thyroid Stim Hormone (TSH) Comments: [facility] [address] [place], [address] TSH 2.71 {uIU/mL} (Normal) Range: 0.358-3.74 8-Bvx-396816:44 Vitamin B12 1303 pg/mL (Abnormal) Comments: [facility] [address] [place], [address] Range: 211-911 :44 Vitamin D,25 Hydroxy Comments: [facility] [address] [place], [address] Vitamin D 25-OH 62.4 ng/mL (Normal) Range: 29.95-100.01 Comments: Vitamin D 25(OH) Status Range Deficiency <20 ng/mL (50nmol/L) Insuffciency 20 - 30 ng/mL (50 - 75 nmol/L) Sufficiency 30 - 100 ng/mL (75 - 250 nmol/L) Toxicity >100 ng/mL (>250 nmol/L) 0-Ebm-747435:06 Basic Metabolic Profile (BMP) Comments: PLEASE FAX TO DR. CANTU [phone] [address] [place], [address] GAP 12 (Normal) Range: 5-15 CO2 26.0 [...] A.D.A. criteria.Please note revised GLUCOSE reference range hgxeeurgi26/02/2018. 47-Fnr-67052:22 CBC W/Diff, Automated Comments: BMP TO DULCE TIMMONS.CBCD, TSH, B12 TO DR. SANGEETHA IRVIN.[facility] [address] [place], [address] Absolute Lymph 1.16 {X10_3/ul} (Normal) Range: 0.83-4.51 [...] 4.2-5.4 WBC 8.0 K/mm3 (Normal) Range: 4.4-11.0 55-Hxz-25323:22 Vitamin B12 659 pg/mL (Normal) Comments: BMP TO DULCE TODD [facility].CBCD, TSH, B12 TO [address] SANGEETHA IRVIN.[facility] [address] [place], [address] Range: 211-911 64-Xeo-83553:20 Basic Metabolic Profile (BMP) Comments: BMP TO DULCE TODD [facility].CBCD, TSH, B12 TO DR. SANGEETHA IRVIN.[facility] [address] [place], [place], [address] GAP 9 (Normal) Range: 5-15 CO2 27.0 [...] A.D.A. criteria.Please note revised GLUCOSE reference range nhuptolpf40/02/2018. 10-Qmy-52090:20 Thyroid Stim Hormone (TSH) Comments: BMP TO DULCE TODD [facility].CBCD, TSH, B12 TO DR[address] SANGEETHA IRVIN.[facility] [address] [place], [place], [address] TSH 4.09 {uIU/mL} (Abnormal) Range: 0.358-3.74 20-Keg-139058:23 Basic Metabolic Profile (BMP) Comments: [facility] [address] [place], [address] GAP 7 (Normal) Range: 5-15 CO2 30.0 [...] A.D.A. criteria.Please note revised GLUCOSE reference range ltnpjueqk79/02/2018. 25-Lqd-837379:23 BNP,B-Type NATRIURETIC PEPTIDE Comments: [facility] [address] [place], [address] B-TYPE JACKIE PEP 892.7 pg/mL (Abnormal) Range: 0-100 10-Aik-363975:23 CBC W/Diff, Automated Comments: [facility] [address] [place], [address] Absolute Lymph 1.23 {X10_3/ul} (Normal) Range: 0.83-4.51 [...] 4.2-5.4 WBC 7.2 K/mm3 (Normal) Range: 4.4-11.0 02-Igl-989911:41 CBC W/Diff, Automated Comments: Reason for Laboratory Test .[facility] [address] [facility] [place], [place], [address] Absolute Lymph 0.85 {X10_3/ul} (Normal) Range: 0.83-4.51 [...] 4.2-5.4 WBC 5.7 K/mm3 (Normal) Range: 4.4-11.0 40-Nip-971818:41 Comprehensive Metabolic Profil Comments: Reason for Laboratory Test .Serial Specimen #1, #2 or #3? 1[facility] [address] [place], [address] GAP 8 (Normal) Range: 5-15 CO2 28.0 [...] A.D.A. criteria.Please note revised GLUCOSE reference range uzhhsbkmr27/02/2018. 81-Tua-011064:41 LDH 224 U/L (Normal) Comments: Reason for Laboratory Test .Serial Specimen #1, #2 or #3? 1[facility] [address] [place], [place], [address] Range: 84-246 0-Bsq-133550:41 URINE GENESIS CULTURE-IDENTIFICATN Comments: add to urine in lab; PATIENT NOT FASTINGPERFORMED BY: [facility] Hkarsl2917 [facility] [id number] Information: SRC:JUAN ([id number]) Result 1 ENTEAE (Abnormal) Comments: Enterobacter aerogenes1,000 [...] S Urine Final report Culture,Comprehensi (Abnormal) ve 54-Dqx-39160:46 AFP, Tumor Marker Comments: Is Patient ? [facility] (refer to report for specific site)refer to report for address and phone number AFP TUMOR 2253 10.0 ng/mL (Abnormal) Range: 0.0-8.3 Comments: Khanh ECLIA methodologyPerformed at: CB - [facility] [address] [place], [place] [id number] Director: Omar Hood PhD, Phone: [phone] :46 CBC W/Diff, Automated Comments: [facility] [address] [place], [place], [address] Absolute Lymph 0.95 {X10_3/ul} (Normal) Range: 0.83-4.51 [...] ADD T3F T4F TO BLOOD FROM 05-25-18 G2 5 [facility] [address] [place], [address] GAP 9 (Normal) Range: 5-15 CO2 28.0 [...] reference range /02/2018. :46 Digoxin Level Comments: [facility] [address] [place], [address] DIG 0.71 ng/mL (Abnormal) Range: 0.80-2.00 :46 Free T3 Comments: PLEASE ADD T3F T4F TO BLOOD FROM 05-25-18G2 [address] [place] [address] [address] [place], [place], [address] FREE T3 3.2 pg/mL (Normal) Range: 2.18-3.98 :46 Hemoglobin A1c Comments: [facility] [address] [place], [place], [address] HGB A1C 5.4 % (Normal) Range: 4.2-6.3 :46 Lipid Profile Comments: PLEASE ADD T3F T4F TO BLOOD FROM 05-25-18G2 [address] [place] [address] [address] [place], [place], [address] VLDL 22 mg/dL (Normal) Range: 5-40 LDL [...] High Risk :46 Microalb:Creat Ratio,Random UR Comments: [facility] [address] [place], [place], [address] MALB:CREAT 7.8 {mg/g_CRE} (Normal) MICROALBUMIN,UR 10.9 mg/L (Normal) UR CREAT 139.00 mg/dL (Normal) :46 T4 Free Direct Comments: PLEASE ADD T3F T4F TO BLOOD FROM 05-25-18G2 [address] [place] [address] [address] [place], [address] T4 FREE DIRECT 1.11 ng/dL (Normal) Range: 0.76-1.46 :46 Thyroid Stim Hormone (TSH) Comments: PLEASE ADD T3F T4F TO BLOOD FROM 05-25- THG2 5 [facility] [address] [place], [address] TSH 0.31 {uIU/mL} (Abnormal) Range: 0.358-3.74 :46 Urinalysis, Complete Comments: How was Urine Obtained? CLEAN CATCHMet[facility] [address]chgs59[address] [place], [address] MUCUS, URINE 0 SEEN [...] :46 Vitamin B12 368 pg/mL (Normal) Comments: [facility] [address] [place], [address] Range: 211-911 :46 Vitamin D,25 Hydroxy Comments: [facility] [address] [place], [address] Vitamin D 25-OH 64.5 ng/mL (Normal) Range: 29.95-100.01 Comments: Vitamin D 25(OH) Status Range Deficiency <20 ng/mL (50nmol/L) Insuffciency 20 - 30 ng/mL (50 - 75 nmol/L) Sufficiency 30 - 100 ng/mL (75 - 250 nmol/L) Toxicity >100 ng/mL (>250 nmol/L) 57-Qcv-564028:52 Urinalysis, Complete Comments: Order Date: 04/06/18Has pt arrived? YHow was Urine Obtained? [facility] [address]ug[address] [place], [place], [address] HYALINE CAST 5-10 SEEN {/lpf} (Normal) Range: [...] (Normal) CLARITY Cloudy (Normal) COLOR Yellow (Normal) 27-Irz-983175:30 CBC W/Diff, Automated Comments: [facility] [address] [place], [address] OVALOCYTE RARE (Normal) MACROCYTE 1+ [...] 4.2-5.4 WBC 9.1 K/mm3 (Normal) Range: 4.4-11.0 25-Nad-740709:30 Comprehensive Metabolic Profil Comments: [facility] [address] [place], [place], [address] GAP 12 (Normal) Range: 5-15 CO2 30.0 [...] Comments: Please note revised GLUCOSE reference range szmtxzopu28/02/2018. 10-Vgi-497844:30 Lactic Acid Comments: Yes/No query for Sepsis Lactate Rule [facility] [address] [place], [place], [address] LACTIC ACID 6.7 mmol/L (Abnormal) Range: 0.4-2.0 Comments: Critical Result(s) Called Lisa RIVERA at: 20:23: by: BRITTANY TORRES 47-Wqc-656925:30 Partial Thromboplast Time Comments: [facility] [address] [place], [place], [address] PTT 41.3 s (Abnormal) Range: 24.1-36.2 46-Mpl-440436:30 Prothrombin Time w/INR Comments: [facility] [address] [place], [place], [address] INR 2.3 (Normal) PROTIME 25.6 s (Abnormal) Range: 11.7-14.9 02-Euz-553883:30 Troponin-I Comments: [facility] [address] [place], [place], [address] TROPONIN-I 0.046 ng/mL (Abnormal) Comments: TROPONIN-I EXPECTED VALUES <0.045 Negative 0.045 - 0.590 Consistent with Cardiac Damage > OR = 0.600 Critical Value Not every elevated troponin is indicative of [place]. T hesevalues should be used with clinical judgement in examiningthe patient's clinical picture for diagnosis. To establisha diagnosis of [place] versus myocardial injury, there must be ademonstrated rise and/ or fall in the troponin values, inaddition to ischemic symptoms, EKG changes, new regionalwall motion abnormality, and/or angiographical evidence. PLEASE NOTE: REFERENCE RANGES EDITED 02/06/1805-Apr-[id number] Ammonia Comments: [facility] [id number] [place], [place], [id number] AMMONIA 20.0 umol/L (Normal) Range: 11-32 21-Blf-117080:08 CBC-Complete Blood Cnt No Diff Comments: [facility] [address] [place], [place], [id number] MPV 10.6 fL (Normal) Range: 6.2-12.0 PLT [...] 4.2-5.4 WBC 6.6 K/mm3 (Normal) Range: 4.4-11.0 96-Luh-437974:08 Comprehensive Metabolic Profil Comments: [facility] [address] [place], [place], [address] GAP 9 (Normal) Range: 5-15 CO2 35.0 [...] Comments: Please note revised GLUCOSE reference range dxjrmxduu07/02/2018. 16-Dzi-113511:08 Differential Comment Comments: [facility] [address] [place], [address] SMEAR COMMENT COMMENT (Normal) Comments: SLIDE SCANNED - 1+ ANISO NOTED. 90-Twq-19942:55 Urinalysis, Complete Comments: How was Urine Obtained? [facility] [address]fr[address] [place], [address] AMORPHOUS 2+ (Normal) HYALINE CAST [...] (Normal) :55 Urine Drug Screen (VISTA) Comments: [facility] [address] [place], [address] TO BE CONFIRMED (Normal) Comments: [...] MUST BE ORDERED SEPARATELY. USE TESTMNEMONIC: UTCA :59 Bedside Glucose Comments: [facility] LaboratoryPoint of [address] [place] [address] BEDSIDE GLU 169 mg/dL (Abnormal) Range: 70-110 Comments: MANAGEMENT OF PATIENT CARE PER NURSING PROTOCOL :35 Basic Metabolic Profile (BMP) Comments: [facility] [address] [place], [place], [address] GAP 16 (Abnormal) Range: 5-15 CO2 15.0 mmol/L (Abnormal) Range: 21.0-32.0 CL 104 mmol/L (Normal) Range: 98-107 K 6.2 mmol/L (Abnormal) Range: 3.5-5.1 Comments: Critical Result(s) Called at: 01:06:28 03/08/2018 by:ANSLEY STANFORD,OFFICE SERVICES SPECIALIST NA 135 mmol/L (Abnormal) Range: 136-145 CA [...] A.D.A. criteria.Please note revised GLUCOSE reference range abfwlhgbi64/02/2018. 78-Cmm-265632:59 Acetaminophen (Tylenol) Level Comments: [facility] [address] [place], [place], [address] ACETAMINOPHEN 4.9 ug/mL (Abnormal) Range: 10.0-30.0 Comments: Slight Icterus, Result may be falsely decreased. 04-Zei-114310:59 Acetone Serum Comments: [facility] [address] [place], [phone] ACETONE SERUM NEGATIVE (Normal) 47-Ndo-816086:59 Alcohol, Blood (Medical)-Serum Comments: [facility] [address] [place], [id number] SERUM ETOH 8.0 mg/dL (Normal) Comments: The serum:whole blood ethanol ratio is approximately 1.14and varies slightly with hematocrit.Medical Alcohol reference interval and critical value innon-tolerant individuals; 50 - 100 Impairment 100 Intoxication 100 - 250 Severe Poisoning 250 - 400 Deep/possible fatal coma 29-Cme-617165:59 Digoxin Level Comments: [facility] [address] [place], [address] DIG 0.32 ng/mL (Abnormal) Range: 0.80-2.00 53-Trm-893786:59 Lactic Acid Comments: Yes/No query for Sepsis Lactate Rule [facility] [address]fmssj[address] [place], [address] LACTIC ACID 12.4 mmol/L (Abnormal) Range: 0.4-2.0 Comments: Critical Result(s) Called at: 00:52:58 03/08/2018 by:ANSLEY OWENSOFFICE SERVICES SPECIALIST 21-Vzi-553254:59 Partial Thromboplast Time Comments: [place] [address] [place], [address] PTT 33.7 s (Normal) Range: 24.1-36.2 17-Nuc-818140:59 Prothrombin Time w/INR Comments: [place] [address] [place], [address] INR 2.4 (Normal) PROTIME 26.4 s (Abnormal) Range: 11.7-14.9 :59 Salicylate Comments: [place] [address] [place], [address] SALICYLATE < 1.7 mg/dL (Abnormal) Range: 2.8-20.0 Comments: Slight Icterus, Result may be falsely decreased. 94-Yti-292005:02 Blood Gases by [facility] Comments: [facility] LaboratoryPoint of [address] [place] [address] SO2 ISTAT 99 % (Normal) Range: [...] Radial (Normal) BLD GAS TYPE ART (Normal) 88-Qrm-810608:52 Bedside Glucose Comments: [facility] LaboratoryPoint of [address] [place] [address] BEDSIDE GLU 214 mg/dL (Abnormal) Range: 70-110 Comments: MANAGEMENT OF PATIENT CARE PER NURSING PROTOCOL 53-Xxk-233557:37 Basic Metabolic Profile (BMP) Comments: [facility] [address] [place], [place], [address] GAP 19 (Abnormal) Range: 5-15 CO2 11.0 [...] A.D.A. criteria.Please note revised GLUCOSE reference range jmriifqfp75/10/2017. 97-Jzc-666707:37 CBC W/Diff, Automated Comments: [facility] [address] [place], [address] CRENATED RBC 1+ (Normal) ANISO 1+ (Normal) [...] 4.2-5.4 WBC 5.5 K/mm3 (Normal) Range: 4.4-11.0 75-Nbh-173104:37 Lipase Comments: [facility] [address] [place], [address] LIPASE 86 U/L (Normal) Range: 73-393 79-Tbt-754773:37 Liver Profile Comments: [facility] [address] [place], [address] D BILI 1.07 mg/dL (Abnormal) Range: 0.00-0.30 T BILI 2.40 mg/dL (Abnormal) Range: 0.20-1.00 ALT 120 U/L (Abnormal) Range: 13-56 ALK P 94 U/L (Normal) Range: 45-117 AST 149 U/L (Abnormal) Range: 15-37 Comments: Moderate Hemolysis, Result may be falsely increased. GLOB 2.9 g/dL (Normal) Range: 2.2-4.2 ALB 3.0 g/dL (Abnormal) Range: 3.2-5.0 T PROT 5.9 g/dL (Abnormal) Range: 6.4-8.2 98-Mfi-576370:37 Magnesium Comments: [facility] [address] [place], [address] MG 2.0 mg/dL (Normal) Range: 1.6-2.6 Comments: Moderate Hemolysis, Result may be falsely increased. 93-Pey-811784:37 Troponin-I Comments: [facility] [address] [facility] [facility] [address] [place], [place], [address] TROPONIN-I 0.081 ng/mL (Abnormal) Comments: TROPONIN-I EXPECTED VALUES <0.045 Negative 0.045 - 0.590 Consistent with Cardiac Damage > OR = 0.600 Critical Value Not every elevated troponin is indicative of [place]. T hesevalues should be used with clinical judgement in examiningthe patient's clinical picture for diagnosis. To establisha diagnosis of [place] versus myocardial injury, there must be ademonstrated rise and/ or fall in the troponin values, inaddition to ischemic symptoms, EKG changes, new regionalwall motion abnormality, and/or angiographical evidence. PLEASE NOTE: REFERENCE RANGES EDITED 02/06/1824-Feb-20188-Obp-892179:21 CMV ANTIBODY (06712) Comments: today; PATIENT NOT FASTINGPERFORMED BY: [facility]CoSaint [facility] CenterUjycsz6742 [facility] [id number] Cytomegalovirus (CMV) Ab, IgG <0.60 U/mL (Normal) Range: 0.00-0.59 Comments: Negative <0.60 Equivocal 0.60 - 0.69 Positive >0.69 3-Aiq-148109:21 HEPATITIS PANEL (80196) Comments: today; PATIENT NOT FASTINGPERFORMED BY: [facility]6370 [facility] [id number] Hep C Virus Ab <0.1 {s/co_ratio} (Normal) Range: 0.0-0.9 Comments: Negative: < 0.8 Indeterminate: 0.8 - 0.9 Positive: > 0.9 . The CDC recommends that a positive HCV antibody result be followed up with a HCV Nucleic Acid Amplification test (542918). Hep B Core Ab, IgM Negative (Normal) HBsAg Screen Negative (Normal) Hep A Ab, IgM Negative (Normal) 4-Zrm-288489:21 EBV Panel (73906) Comments: today; PATIENT NOT FASTINGPERFORMED BY: [facility]6370 [facility] [id number] Interpretation: SPRCS (Normal) Comments: EBV Interpretation Chart [...] <36.0 Equivocal 36.0 - 43.9 Positive >43.9 91-Flg-799265:19 CBC W/Diff, Automated Comments: Order Date: 02/23/18Order Info: 0184-1 - CBCDOrder Info: 21594-6 - [facility] [address] [place], [address] MACROCYTE 1+ (Normal) ANISO RARE (Normal) [...] 4.2-5.4 WBC 6.9 K/mm3 (Normal) Range: 4.4-11.0 02-Ynj-496456:19 Comprehensive Metabolic Profil Comments: Order Date: 02/23/18Order Info: 0786-1 - CMPOrder Info: 1798-8 - AMYOrder Info: 3040-3 - [facility]EM[facility] [address] [place], [address] GAP 11 (Normal) Range: 5-15 CO2 25.0 [...] A.D.A. criteria.Please note revised GLUCOSE reference range aiueiruvh47/02/2018. 79-Map-418804:19 Erythrocyte Sed Rate Comments: Order Date: 02/23/18Order Info: 0184-1 - CBCDOrder Info: 27637-4 - [facility] [address] [place], [address] SED RATE 16 mm/h (Normal) Range: 0-30 63-Zfu-995706:19 Lipase (99160) Comments: Order Date: 02/23/18Order Info: 0786- 1 - CMPOrder Info: 1798-8 - AMYOrder Info: 3040-3 - [facility] [address] [place], [address] LIPASE 92 U/L (Normal) Range: 73-393 04-Mzf-881158:19 Amylase (53567) Comments: Order Date: 02/23/18Order Info: 0786- 1 - CMPOrder Info: 1798-8 - AMYOrder Info: 3040-3 - [facility] [address] [place], [address] ARIAN 27 U/L (Normal) Range: 25-115 5-Lpt-995652:15 Amylase Comments: CMP, CBCD IS FOR DR ORONA IS FOR [facility] [address] [place], [phone] ARIAN 29 U/L (Normal) Range: 25-115 2-Kag-112118:15 CBC W/Diff, Automated Comments: CMP, CBCD IS FOR DR ORONA IS FOR [facility] [address] [place], [address] ANISO 1+ (Normal) Absolute Lymph 0.41 {X10_3/ul} [...] 4.2-5.4 WBC 5.3 K/mm3 (Normal) Range: 4.4-11.0 6-Owi-818687:15 Comprehensive Metabolic Profil Comments: CMP, CBCD IS FOR DR COLÓNT IS FOR DR [facility]EL[facility] Nmwsmmswsp2661 [facility], [place], [address] GAP 9 (Normal) Range: 5-15 CO2 27.0 [...] A.D.A. criteria.Please note revised GLUCOSE reference range pycjjcpby44/02/2018. 1-Mgz-020506:15 Digoxin Level Comments: CMP, CBCD IS FOR DR ORONA IS FOR [facility] [address] [place], [place], [address] DIG 0.92 ng/mL (Normal) Range: 0.80-2.00 6-Qho-158284:15 Lipase Comments: KEVIN, CBCD IS FOR DR ORONA IS FOR [facility] [address] [place], [place], [address] LIPASE 101 U/L (Normal) Range: 73-393 7-Cyv-653579:15 Lipid Profile Comments: KEVIN, CBCD IS FOR DR ORONA IS FOR [facility] [address] [place], [place], [address] VLDL 15 mg/dL (Normal) Range: 5-40 LDL [...] 200-240 mg/dL Borderline >240 mg/dL High Risk 4-Pab-621927:15 Magnesium Comments: CMP, CBCD IS FOR DR ORONA IS FOR [facility] [address] [place], [address] MG 1.8 mg/dL (Normal) Range: 1.6-2.6 7-Hxb-498590:15 Microalb:Creat Ratio,Random UR Comments: CMP, CBCD IS FOR DR ORONA IS FOR [facility] [address] [place], [address] MALB:CREAT 34.3 {mg/g_CRE} (Abnormal) MICROALBUMIN,UR 58.6 mg/L (Normal) UR CREAT 171.00 mg/dL (Normal) 3-Plf-238980:15 Thyroid Stim Hormone (TSH) Comments: CMP, CBCD IS FOR DR ORONA IS FOR [facility] [address] [place], [address] TSH 1.84 {uIU/mL} (Normal) Range: 0.358-3.74 7-Fci-244472:15 Vitamin B12 383 pg/mL (Normal) Comments: CMP, CBCD IS FOR DR ORONA IS FOR [facility] [address] [place], [address] Range: 211-911 4-Srg-600961:15 Vitamin D,25 Hydroxy Comments: CMP, CBCD IS FOR DR ORONA IS FOR [facility] [address] [place], [address] Vitamin D 25-OH 72.0 ng/mL (Normal) Range: 29.95-100.01 Comments: Vitamin D 25(OH) Status Range Deficiency <20 ng/mL (50nmol/L) Insuffciency 20 - 30 ng/mL (50 - 75 nmol/L) Sufficiency 30 - 100 ng/mL (75 - 250 nmol/L) Toxicity >100 ng/mL (>250 nmol/L) 09-Ecq-442074:14 Blood Glucose , Office (61997) Blood Glucose , Office 137 (Normal) 93-Eyv-526762:14 HgA1C , Office (43400) HgA1C , Office 6.1 % (Normal) Range: 4.6 - 7.1 :35 CBC W/Diff, Automated Comments: [facility] [address] [place], [place], [address] Absolute Lymph 1.30 {X10_3/ul} (Normal) Range: 0.83-4.51 [...] Metabolic Profil Comments: Reason for Laboratory Test [facility]etro[facility] [address]qzh[address] [place], [place], [address] GAP 8 (Normal) Range: 5-15 CO2 31.0 mmol/L (Normal) Range: 21.0-32.0 CL 99 mmol/L (Normal) Range: 98-107 K 3.4 mmol/L (Abnormal) Range: 3.5-5.1 NA 138 mmol/L (Normal) Range: 136-145 T BILI 0.70 mg/dL (Normal) Range: 0.20-1.00 ALT 27 U/L (Normal) Range: 13-56 Comments: Please note revised ALT reference range gvzzueqhz63/28/2018. ALK P 102 U/L (Normal) Range: 45-117 [...] A.D.A. criteria.Please note revised GLUCOSE reference range huyfxafcq16/02/2018. 06-Bxd-21141:33 LDH 198 U/L (Normal) Comments: Reason for Laboratory Test OVSerial Specimen #1, #2 or #3? [facility] [address] [place], [address] Range: 84-246 71-Eti-565284:15 Culture, Urine Comments: [facility] [address] [place], [place], [address] CUUR See Note (Normal) Comments: VERBAL ORDER DR. IRVIN'S OFFICE Urine CultureORGANISM 1: Mixed Gram Positive OrganismsColony Count 11,000-25,000MIX CULTURE Mixed contaminants. Submit a new specimen if indicated. 46-Nfx-501303:11 CBC W/Diff, Automated Comments: [facility] [address] [place], [place], [address] Absolute Lymph 1.34 {X10_3/ul} (Normal) Range: 0.83-4.51 [...] 4.2-5.4 WBC 5.4 K/mm3 (Normal) Range: 4.4-11.0 65-Hiw-013658:11 Comprehensive Metabolic Profil Comments: Comments: [facility] [address] [place], [address] GAP 7 (Normal) Range: 5-15 CO2 28.0 mmol/L (Normal) Range: 21.0-32.0 CL 100 mmol/L (Normal) Range: 98-107 K 3.9 mmol/L (Normal) Range: 3.5-5.1 NA 135 mmol/L (Abnormal) Range: 136-145 T BILI 0.70 mg/dL (Normal) Range: 0.20-1.00 ALT 31 U/L (Normal) Range: 13-56 Comments: Please note revised ALT reference range tsyisqnsn70/28/2018. ALK P 110 U/L (Normal) Range: 45-117 [...] A.D.A. criteria.Please note revised GLUCOSE reference range ukdkhrvqe47/02/2018. 57-Nkw-949779:10 Urinalysis, Complete Comments: ORDERED UACDR.JACINDA ORDERED CMP AND CBCDComments: clean catchComments: clean catchHow was Urine Obtained? 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, [address] MUCUS, URINE RARE {/hpf} (Normal) [...] (Normal) CLARITY Cloudy (Normal) COLOR Yellow (Normal) 3-Pnt-211189:42 ,Serum,hCG Quali. Comments: Comments: use blood in [facility] [address] [place], [address] HCGSQUAL NEGATIVE {Negative} (Normal) Range: 0-9 Nonpreg HCG Qual triggr 2 m[iU]/mL (Normal) 9-Dzf-513800:41 Basic Metabolic Profile (BMP) Comments: [facility] [address] [place], [address] GAP 10 (Normal) Range: 5-15 [...] A.D.A. criteria.Please note revised GLUCOSE reference range hawqeibkx93/02/2018. 4-Lvg-292561:41 CBC-Complete Blood Cnt No Diff Comments: [facility] [address] [place], [place], [address] MPV 9.6 fL (Normal) Range: 6.2-12.0 PLT [...] 4.2-5.4 WBC 8.7 K/mm3 (Normal) Range: 4.4-11.0 7-Ewv-764155:41 Prothrombin Time w/INR Comments: [facility] [address] [place], [place], [address] INR 1.0 (Normal) PROTIME 12.9 s (Normal) Range: 11.7-14.9 03-Nov-20179:00 Culture, Urine Comments: [facility] [address] [place], [place], [address] CUUR See Note (Normal) Comments: Urine CultureORGANISM [...] &lt ;=20 S(NF) indicates non-formulary drug at [facility]. Approval by Infectious Disease Specialist required before non- formulary drugs may be ordered and/or dispensed. :27 AFP, Tumor Marker Comments: Is Patient ? NPatient's Weight (LBS.): 124Number of Fetuses: 0[facility] (refer to report for specific site)refer to report for address and phone number AFP TUMOR 2253 6.8 ng/mL (Normal) Range: 0.0-8.3 Comments: Sellf ECLIA methodologyPerformed at: [facility] [address] [id number] Director: Omar Hood PhD, Phone: [phone] :[phone] CBC W/Diff, Automated Comments: [facility] [address] [place], [place], [address] Absolute Lymph 1.47 {X10_3/ul} (Normal) Range: 0.83-4.51 [...] 4.2-5.4 WBC 6.0 K/mm3 (Normal) Range: 4.4-11.0 76-Euz-73315:27 Comprehensive Metabolic Profil Comments: [facility] [address] [place], [place], [address] GAP 9 (Normal) Range: 5-15 CO2 28.0 [...] Range: 70-110 :27 Microalb:Creat Ratio,Random UR Comments: [facility] [address] [place], [place], [address] MALB:CREAT 17.4 {mg/g_CRE} (Normal) MICROALBUMIN,UR 37.5 mg/L (Normal) UR CREAT 215.00 mg/dL (Normal) :40 CBC W/Diff, Automated Comments: [facility] [address] [place], [place], [address] Absolute Lymph 1.60 {X10_3/ul} (Normal) Range: 0.83-4.51 [...] 4.2-5.4 WBC 10.9 K/mm3 (Normal) Range: 4.4-11.0 70-Ooz-14490:39 Comprehensive Metabolic Profil Comments: Order Date: 12/06/16Order Info: 0786-1 - *CMP Complete Met[facility]WPe[facility] [address]rxrebmhmj5[address] [place], [place], [address] GAP 10 (Normal) Range: 5-15 CO2 27.0 [...] per A.D.A. criteria. :15 Culture, Urine Comments: [facility] [address] [place], [place], [address] CUUR See Note (Normal) Comments: Urine CultureORGANISM [...] $ <=20 S(NF) indicates non-formulary drug at [facility]. Approval by Infectious Disease Specialist required before non-formulary drugs may be ordered and/or dispensed. :35 HgA1C , Office (34562) HgA1C , Office 6.5 % (Normal) Range: 4.6 - 7.1 :07 AFP, Tumor Marker Comments: Is Patient ? N[facility] (refer to report for specific site)refer to report for address and phone number AFP TUMOR 2253 8.5 ng/mL (Abnormal) Range: 0.0-8.3 Comments: Sellf ECLIA methodologyPerformed at: [facility] [address] [id number] Director: Omar Hood PhD, Phone: [phone] CBC W/Diff, Automated Comments: [facility] [address] [place], [address] Absolute Lymph 1.17 {X10_3/ul} (Normal) Range: 0.83-4.51 [...] Range: 4.4-11.0 31-May-20179:07 Comprehensive Metabolic Profil Comments: [facility] [address] [place], [address] GAP 9 (Normal) Range: 5-15 CO2 28.0 [...] the [place] Food and Drug Administration.Performed at: [place] [id number] [place] [id number] Director: Zia Jarvis MD, Phone: [phone] INS RES/DIAB RK . (Normal) LDL SIZE [...] . (Normal) 31-May-20179:07 Vitamin D,25 Hydroxy Comments: [facility] [address] [place], [place], [address] Vitamin D 25-OH 61.8 ng/mL (Normal) Comments: Vitamin D 25(OH) Status Range Deficiency <20 ng/mL (50nmol/L) Insuffciency 20 - 30 ng/mL (50 - 75 nmol/L) Sufficiency 30 - 100 ng/mL (75 - 250 nmol/L) Toxicity >100 ng/mL (>250 nmol/L) :48 Liver Profile Comments: [facility] [address] [place], [address] D BILI 0.14 mg/dL (Normal) Range: 0.00-0.30 T BILI 0.50 mg/dL (Normal) Range: 0.20-1.00 ALT 57 U/L (Normal) Range: 12-78 ALK P 94 U/L (Normal) Range: 45-117 AST 40 U/L (Abnormal) Range: 15-37 GLOB 2.8 g/dL (Normal) Range: 2.3-3.5 ALB 3.9 g/dL (Normal) Range: 3.4-5.0 T PROT 6.7 g/dL (Normal) Range: 6.4-8.2 :45 Potassium Comments: [facility] [address] [place], [address] K 4.3 mmol/L (Normal) Range: 3.5-5.1 :35 CBC W/Diff, Automated Comments: [facility] [address]te[address]qc[address] [place], [place], [address] Absolute Lymph 1.24 {X10_3/ul} (Normal) Range: 0.83-4.51 [...] 4.2-5.4 WBC 3.6 K/mm3 (Abnormal) Range: 4.4-11.0 61-Zqx-91001:35 Comprehensive Metabolic Profil Comments: [facility] [address] [place], [address] GAP 10 (Normal) Range: 5-15 CO2 31.0 [...] ASPIRATION (SLIDES ONLY) See Note (Normal) Comments: [facility] [address] [place], [address] 0 Comments: Patient: IFEOMA ASHRAF : 1965 (52/F) Acct Num: [id number] Phys: Janelle KING,Alejandro Unit Num: [id number] Loc: LABSPEC Specimen: [id number] Received: 03/18/17 - 1126 Spec Ty pe: ASPIRATION TISSUES TISSUES: COMMENT Correlation with clinical, radiologic findings and appropriate follow up are necessary. CYTOLOGY GROSS Received are ten smears labeled wi th the patient's name and designated per the requisition as left thyroid FNA. Submitted for staining. / 03/18/17 TC:5 CPT: 91738 CYTOLOGY STUDY Slides are reviewed. The specimen [...] <signature on file> 01-Mar-20179:30 HEPATITIS C ANTIBODY (73684) Comments: PATIENT NOT FASTINGPERFORMED BY: [facility]6370 [facility] [id number] Hep C Virus Ab <0.1 {s/co_ratio} (Normal) Range: 0.0-0.9 Comments: Negative: < 0.8 Indeterminate: 0.8 - 0.9 Positive: > 0.9 . The CDC recommends that a positive HCV antibody result be followed up with a HCV Nucleic Acid Amplification test (218117). :30 Potassium Serum (94158) Comments: PATIENT NOT FASTINGPERFORMED BY: [facility]6370 [facility] [id number] Potassium, Serum 4.8 mmol/L (Normal) Range: 3.5-5.2 :29 HgA1C , Office (18075) HgA1C , Office 7.9 % (Abnormal) Range: 4.6 - 7.1 :53 CBC W/Diff, Automated Comments: [facility] [address] [place], [place], [address] Absolute Lymph 1.57 {X10_3/ul} (Normal) Range: 0.83-4.51 [...] 4.2-5.4 WBC 4.8 K/mm3 (Normal) Range: 4.4-11.0 67-Fej-16724:53 Comprehensive Metabolic Profil Comments: [facility] [address] [place], [address] GAP 11 (Normal) Range: 5-15 CO2 32.0 [...] per A.D.A. criteria. :53 Lipid Profile Comments: [facility] [address] [place], [address] VLDL 37 mg/dL (Normal) Range: 5-40 [...] High Risk :53 Microalb:Creat Ratio,Random UR Comments: [facility] [address] [place], [address] MALB:CREAT 19.7 {mg/g_CRE} (Normal) MICROALBUMIN,UR 27.8 mg/L (Normal) UR CREAT 141.00 mg/dL (Normal) :53 Thyroid Stim Hormone (TSH) Comments: [facility] [address] [place], [address] TSH 2.39 {uIU/mL} (Normal) Range: 0.358-3.74 :53 Vitamin D,25 Hydroxy Comments: [facility] [address] [place] [place], [address] Vitamin D 25-OH 79.9 ng/mL (Normal) Comments: Vitamin D 25(OH) Status Range Deficiency <20 ng/mL (50nmol/L) Insuffciency 20 - 30 ng/mL (50 - 75 nmol/L) Sufficiency 30 - 100 ng/mL (75 - 250 nmol/L) Toxicity >100 ng/mL (>250 nmol/L) 16-Zig-112724:08 CBC W/Diff, Automated Comments: [facility] [address] [place], [place], [address] Absolute Lymph 2.04 {X10_3/ul} (Normal) Range: 0.83-4.51 [...] 4.2-5.4 WBC 9.0 K/mm3 (Normal) Range: 4.4-11.0 23-Ekq-298942:08 Comprehensive Metabolic Profil Comments: [facility] [address] [place], [place], [address] GAP 9 (Normal) Range: 5-15 CO2 27.0 [...] 126 mg/dLsuggests DIABETES MELLITUS per A.D.A. criteria. 20-Vpf-391939:00 Culture, Urine Comments: [facility] [address] [place], [address] CUUR See Note (Normal) Comments: Urine CultureORGANISM 1: Mixed Gram Positive OrganismsColony Count >100,000MIX CULTURE Mixed contaminants. Submit a new specimen if indicated. 8-Jjk-821998:25 CBC W/Diff, Auto - EPLAB Comments: At [facility] Outpatient [facility] Medical Oncologypatients receive CBC w/auto Differential ONLY. Physicianwill place an order for a manual differential or Pathologistreview at his discretion. [facility]. [address] [address] [place] [address] [employer] LEADER SEMICONDUCTOR PROCESSING: MATEO CASTANEDA DO PH:[phone] [id number] [place], [address] Absolute Lymph 1.42 {X10_3/uL} (Normal) Range: [...] 4.2-5.4 WBC 6.3 K/mm3 (Normal) Range: 4.4-11.0 [id number] Comprehensive Metabolic Profil Comments: Order Date: 06/07/16Order Date: 06/07/16Serial Specimen #1, #2 or #3? 1[facility] Zsauyatyhp4122 [place], [address] GAP 11 (Normal) Range: 5-15 CO2 [...] 200 mg/dLsuggests DIABETES MELLITUS per A.D.A. criteria. 7-Rjb-634342:25 LDH 208 U/L (Normal) Comments: Order Date: 06/07/16Order Date: 16Serial Specimen #1, #2 or #3? [address] [place] [address] Fxxrbpaxvv7693 Ping [facility] [place], [place], [address] Range: 84-246 0-Bdf-623296:25 Uric Acid Comments: Order Date: 06/07/16Order Date: 16Serial Specimen #1, #2 or #3? [address] [place] [address] [address] [place], [place], [address] URIC 3.8 mg/dL (Normal) Range: 2.6-6.0 Comments: The drugs N-Acetylcysteine and Metamizole may falsely deressthis assay. :10 HgA1C , Office (57211) HgA1C , Office 8.0 % (Abnormal) Range: 4.6 - 7.1 :10 Blood Glucose , Office (43115) Blood Glucose , Office 223 (Normal) :24 AFP, Tumor Marker Comments: Is Patient ? [facility] (refer to report for specific site)refer to report for address and phone number AFP TUMOR 2253 8.5 ng/mL (Abnormal) Range: 0.0-8.3 Comments: Sellf ECLIA methodologyPerformed at: [facility] [address] [id number] Director: Omar Hood PhD, Phone: [phone] :24 CBC W/Diff, Automated Comments: [facility] Evdoofnwak[address] [place], [place], [address] Absolute Lymph 1.35 {X10_3/ul} (Normal) Range: 0.83-4.51 [...] Range: 4.4-11.0 :24 Comprehensive Metabolic Profil Comments: [facility] Raihxezjqy39[address] [place], [place], [address] GAP 9 (Normal) Range: 5-15 CO2 27.0 [...] 126 mg/dLsuggests DIABETES MELLITUS per A.D.A. criteria. 01-Akc-96270:24 NMR Lipoprofile Comments: [facility] (refer to report for specific site)refer to [...] the [place] Food and Drug Administration.Performed at: [address] [id number] Director: Zia Jarvis MD, Phone: [phone] INS RES/DIAB RK . (Normal) LDL SIZE [...] mg/dL (Normal) Range: 100-199 LIPIDS . (Normal) 10-Vrt-752510:53 CBC W/Diff, Automated Comments: [facility] Sbqkswjnbe3[address] [place], [place], [address] Absolute Lymph 1.41 {X10_3/ul} (Normal) Range: 0.83-4.51 [...] 4.2-5.4 WBC 12.2 K/mm3 (Abnormal) Range: 4.4-11.0 74-Hbq-744134:53 Comprehensive Metabolic Profil Comments: [facility] Dmmvkfnfze3860 [address] [place], [place], [address] GAP 13 (Normal) Range: 5-15 CO2 24.0 [...] A.D.A. criteria. :42 CBC W/Diff, Automated Comments: [facility] Zjlcehyaac33[address] [place], [place], [address] Absolute Lymph 1.92 {X10_3/ul} (Normal) Range: 0.83-4.51 [...] Range: 4.4-11.0 :42 Comprehensive Metabolic Profil Comments: [facility] Kleryptcgf3552 [address] [place], [place], [address] GAP 11 (Normal) Range: 5-15 CO2 25.0 [...] :55 Magnesium Comments: Order Date: 06/07/16Order Date: 06/07/16[facility] Gyvviekiyv[address] [place], [place], [address] MG 2.0 mg/dL (Normal) Range: 1.8-2.4 :57 CBC W/Diff, Auto - EPLAB Comments: At [facility] Outpatient [facility] Medical Oncologypatients receive CBC w/auto Differential ONLY. Physicianwill place an order for a manual differential or Pathologistreview at his discretion. [facility] OUTPATIENT [facility]. [address] [address] [place] [address] GROUP LEADER SEMICONDUCTOR PROCESSING: MATEO CASTANEDA DO PH:[phone] [facility] Campus [facility] Center Gikgjzeeqf7[address] [place], [place], [address] Absolute Lymph 1.38 {X10_3/uL} (Normal) Range: 0.83-4.51 [...] Profil Comments: Order Date: 06/07/16OV Order #: [id number] Specimen #1, #2 or #3? 1 [id number] Bygzkbhvys6964 [address] [place], [place], [address] GAP 13 (Normal) Range: 5-15 CO2 24.0 [...] (Normal) Comments: Order Date: 06/07/16 Order #: [id number] Specimen #1, #2 or #3? [address] [place] [address] [place], [address] Range: 84-246 :56 Magnesium Comments: Order Date: 06/07/16OV Order #: [id number] Specimen #1, #2 or #3? [id number] [place] [address] [place], [address] MG 1.5 mg/dL (Abnormal) Range: 1.8-2.4 :56 Uric Acid Comments: Order Date: 06/07/16OV Order #: [id number] Specimen #1, #2 or #3? [address] [place] [address] [place], [place], [address] URIC 4.8 mg/dL (Normal) Range: 2.6-6.0 Comments: The drugs N-Acetylcysteine and Metamizole may falsely deressthis assay. :30 Liver Profile Comments: [facility] Qbsciteveu4[address] [place], [address] D BILI 0.13 mg/dL (Normal) Range: 0.00-0.30 T BILI 0.40 mg/dL (Normal) Range: 0.20-1.00 ALT 60 U/L (Normal) Range: 12-78 ALK P 126 U/L (Normal) Range: 50-136 AST 37 U/L (Normal) Range: 15-37 GLOB 2.7 g/dL (Normal) Range: 2.3-3.5 ALB 3.4 g/dL (Normal) Range: 3.4-5.0 T PROT 6.1 g/dL (Abnormal) Range: 6.4-8.2 :33 CBC W/AUTO DIFF WBC Comments: PATIENT NOT FASTINGPERFORMED BY: [facility] Yxengi3564 [facility] [id number] Information: NURSE DRAW (98330) Immature Grans (Abs) 0.0 {x10E3/uL} (Normal) Range: [...] COMPREHENSIVE Comments: PATIENT NOT FASTINGPERFORMED BY: [facility] Yirheb1393 [facility] [id number] (03572) ALT (SGPT) 41 [iU]/L (Abnormal) Range: 0-32 [...] (Abnormal) Range: 65-99 :09 HgA1C , Office (20849) HgA1C , Office 7.0 % (Normal) Range: 4.6 - 7.1 :14 AFP, Tumor Marker Comments: Is Patient ? [facility] (refer to report for specific site)refer to report for address and phone number AFP TUMOR 2253 7.7 ng/mL (Normal) Range: 0.0-8.3 Comments: Sellf ECLIA methodologyPerformed at: [facility] [address] [id number] Director: Omar Hood PhD, Phone: [phone] :14 CBC W/Diff, Automated Comments: [facility] [address] [place] [address], [address] ; will review on 05/17 Absolute [...] Range: 4.4-11.0 :14 Comprehensive Metabolic Profil Comments: [facility] X[address]ug[address] [place], [address] GAP 7 (Normal) Range: 5-15 CO2 28.0 [...] per A.D.A. criteria. :14 Lipid Profile Comments: [facility] Prlhrlqric022[address] [place], [id number] VLDL 36 mg/dL (Normal) Range: 5-40 LDL [...] High Risk :14 Microalb:Creat Ratio,Random UR Comments: [facility] [address] [place], [id number] ; will review on 05/17 MALB:CREAT 14.6 {mg/g_CRE} (Normal) MICROALBUMIN,UR 23.4 mg/L (Normal) UR CREAT 160.00 mg/dL (Normal) :14 Thyroid Stim Hormone (TSH) Comments: [facility] [address] [place], [address] TSH 1.89 {uIU/mL} (Normal) Range: 0.358-3.74 :14 Vitamin D,25 Hydroxy Comments: [facility] Ksonepcvlj8266 [address] [place], [address] ; will review on 05/17 Vitamin D 25-OH 53.2 ng/mL (Normal) Comments: Vitamin D 25(OH) Status Range Deficiency <20 ng/mL (50nmol/L) Insuffciency 20 - 30 ng/mL (50 - 75 nmol/L) Sufficiency 30 - 100 ng/mL (75 - 250 nmol/L) Toxicity >100 ng/mL (>250 nmol/L) :23 CBC W/Diff, Automated Comments: [facility] [address] [place], [place], [address] Absolute Lymph 1.65 {X10_3/ul} (Normal) Range: 0.83-4.51 [...] Range: 4.4-11.0 :23 Comprehensive Metabolic Profil Comments: [facility] Ogbjtuladm76[address] [place], [place], [address] GAP 9 (Normal) Range: 5-15 CO2 30.0 [...] 126 mg/dLsuggests DIABETES MELLITUS per A.D.A. criteria. 39-Ttg-942841:07 HgA1C , Office (59360) HgA1C , Office 8.5 % (Abnormal) Range: 4.6 - 7.1 :15 CBC W/Diff, Automated Comments: [facility] Ptyffdntie[address] [place], [place], [address] Absolute Lymph 1.76 {X10_3/ul} (Normal) Range: 0.83-4.51 [...] 4.2-5.4 WBC 6.7 K/mm3 (Normal) Range: 4.4-11.0 95-Mgp-07098:15 Comprehensive Metabolic Profil Comments: [facility] Lwwjbtttgj5375 Ping [place], [place], [address] GAP 13 (Normal) Range: 5-15 CO2 23.0 [...] per A.D.A. criteria. :15 Lipid Profile Comments: [facility] Znssivteef6186 [facility] [place], [address] VLDL 45 mg/dL (Abnormal) Range: 5-40 LDL [...] High Risk :15 Vitamin D,25 Hydroxy Comments: [facility] Mcbkggduah5314 [facility] [place], [place], [address] Vitamin D 25-OH 28.8 ng/mL (Normal) Comments: Vitamin D 25(OH) Status Range Deficiency <20 ng/mL (50nmol/L) Insuffciency 20 - 30 ng/mL (50 - 75 nmol/L) Sufficiency 30 - 100 ng/mL (75 - 250 nmol/L) Toxicity >100 ng/mL (>250 nmol/L); ADDENDA: non-emergent till apt :35 CBC W/Diff, Automated Comments: [facility] [address] [place], [place], [address] Absolute Lymph 1.26 {X10_3/ul} (Normal) Range: 0.83-4.51 [...] Range: 4.4-11.0 :35 Comprehensive Metabolic Profil Comments: [facility] [address] [place], [place], [address] GAP 14 (Normal) Range: 5-15 CO2 26.0 [...] 200 mg/dLsuggests DIABETES MELLITUS per A.D.A. criteria. 58-Ipk-17238:0 ASPIRATION (SLIDES ONLY) See Note (Normal) Comments: [facility] Qiogbygzai8[address] [place], [place], [address] 0 Comments: Patient: IFEOMA ASHRAF : 1965 (50/F) Acct Num: [id number] Phys: Alejandro Luis MD Unit Num: [id number] Loc: LABSPEC Specimen: [id number] Received: 01/06/16 - 1129 Spec Ty pe: ASPIRATION TISSUES TISSUES: COMMENT Correlation with clinical, radiologic findings and appropriate follow up are necessary. CYTOLOGY GROSS Received are 10 smears labeled wit h the patient's name and designated per the requisition as fine needle aspiration left thyroid. Submitted for staining. 01/06/16 TC:5 CPT:72586 CYTOLOGY STUDY Slides are reviewed. The spe [...] Signed Toni Yepez 01/07/16 <signature on file> 3-Zuf-276478:29 CBC W/Diff, Auto - EPLAB Comments: At [facility] Outpatient [facility] Medical Oncologypatients receive CBC w/auto Differential ONLY. Physicianwill place an order for a manual differential or Pathologistreview at his discretion. [facility] OUTPATIENT [facility]. [address] [address] [place] [address] GROUP LEADER SEMICONDUCTOR PROCESSING: MATEO CASTANEDA DO PH:[phone] Main Campus Medical Center [address]kxli[address] [place], [address] Absolute Lymph 1.49 {X10_3/uL} (Normal) Range: 0.83-4.51 [...] 4.2-5.4 WBC 4.6 K/mm3 (Normal) Range: 4.4-11.0 1-Gun-740395:28 Comprehensive Metabolic Profil Comments: Serial Specimen #1, #2 or #3? 1[facility] Qtiwcnxtqb6[address] [place], [place], [address] GAP 8 (Normal) Range: 5-15 CO2 26.0 [...] 126 mg/dLsuggests DIABETES MELLITUS per A.D.A. criteria. 2-Jgq-111660:28 LDH 213 U/L (Normal) Comments: Serial Specimen #1, #2 or #3? 1[facility] Bmicfnizen87[address] [place], [address] Range: 84-246 0-Xdy-942742:28 Magnesium Comments: Serial Specimen #1, #2 or #3? 1[facility] Vrxyzoidxu3[address] [place], [address] MG 1.6 mg/dL (Abnormal) Range: 1.8-2.4 :28 Uric Acid Comments: Serial Specimen #1, #2 or #3? 1[facility] Wenfstauzj7[address] [place], [address] URIC 4.8 mg/dL (Normal) Range: 2.6-6.0 26-Nov-20159:36 Miscellaneous Lab Procedure Comments: Comments: [id number] URINE TOX,RUN LOWEST TESTTest(s) Ordered: [id number] URINE TOX,RUN LOWEST TESTMetrohealth Main Campus Medical Center Ydcdhlhvgv5157 [place], [place], [address] [facility] Comments: [id number] 6+OXYCODONE-BUND (ng/mL)DRUG RESULT SCREEN CUTOFF____ Amphetamines,Urine Negat LAB (Normal) scott ng/mL 1000Amphetamine test includes Amphetamine and Methamphetamine.Barbiturates Negative ng/mL 200Benzodiazepines Negative ng/mL 200Cannabinoid TEST Negative ng/mL 20Cocaine (Metab) Negative ng/mL 300Opiates Positive ng/mL 300 Opiates test includes Codeine, Morphine, Hydromorphone, Avon codone.Please Note:Confirmation performed by Mass SpectrometryCodeine NegativeMorphine NegativeHydromorphone NegativeHydrocodone Positive Hydrocodone Confirm 1950 ng/mL 300Oxycodone/Oxymorphone,Urine Negative ng/mL 300 Test includes Oxydodone and Oxymorphone. TESTI NG PERFORMED AT [facility]. ORIGINAL REPORT ON FILE IN LAB CONTAINS ADDITIONAL TEST SITE INFORMATION. :36 Urine Drug Screen (VISTA) Comments: Comments: [id number] URINE TOX,RUN LOWEST TESTList of Drugs Taken or Suspected? UNKNOWNMet[facility] I[address]ceil[address] [place] [address], [id number] ; ordered by Basali THC NEGATIVE (Normal) [...] TESTING MUST BE ORDERED SEPARATELY. USE TESTMNEMONIC: [facility] 55-Lrl-701939:20 HgA1C , Office (81876) HgA1C , Office 7.3 % (Abnormal) Range: 4.6 - 7.1 :13 AFP, Tumor Marker Comments: Is Patient ? [facility] (refer to report for specific site)refer to report for address and phone number AFP TUMOR 2253 6.4 ng/mL (Normal) Range: 0.0-8.3 Comments: Khanh ECLIA methodologyPerformed at: [facility] [address] [id number] Director: Omar Hood PhD, Phone: [phone] :13 CBC W/Diff, Automated Comments: [facility] Sahnulzebv[address] [place], [place], [address] Absolute Lymph 1.59 {X10_3/ul} (Normal) Range: 0.83-4.51 [...] Range: 4.4-11.0 :13 Comprehensive Metabolic Profil Comments: [facility] [address] [place], [place], [address] GAP 10 (Normal) Range: 5-15 CO2 24.0 [...] per A.D.A. criteria. :13 Lipid Profile Comments: [facility] Coexqypstp7[address] [place], [place], [address] ; non-emergent and pt has a f/u [...] High Risk :13 Microalb:Creat Ratio,Random UR Comments: [facility] Afmexeeoel[address] [place], [address] MALB:CREAT 17.0 {mg/g_CRE} (Normal) MICROALBUMIN,UR 43.7 mg/L (Normal) UR CREAT 257.00 mg/dL (Normal) :13 Thyroid Stim Hormone (TSH) Comments: [facility] [address] [place], [address] TSH 1.82 {uIU/mL} (Normal) Range: 0.358-3.74 :13 Vitamin D,25 Hydroxy Comments: [facility] Lbwdbexaxl1212 [address] [place] [place], [phone] ; will review at 11/10 appt Vitamin D 25-OH 39.8 ng/mL (Normal) Comments: Vitamin D 25(OH) Status Range Deficiency <20 ng/mL (50nmol/L) Insuffciency 20 - 30 ng/mL (50 - 75 nmol/L) Sufficiency 30 - 100 ng/mL (75 - 250 nmol/L) Toxicity >100 ng/mL (>250 nmol/L) :40 CBC W/Diff, Automated Comments: [facility] X[address] [place], [address] Absolute Lymph 1.47 {X10_3/ul} (Normal) Range: [...] 4.2-5.4 WBC 4.7 K/mm3 (Normal) Range: 4.4-11.0 82-Zvx-41753:40 Comprehensive Metabolic Profil Comments: [facility] Ovwxoyhnsc8686 [address] [place], [place], [address] GAP 13 (Normal) Range: 5-15 CO2 24.0 [...] per A.D.A. criteria. :49 HgA1C , Office (07940) HgA1C , Office 7.8 % (Abnormal) Range: 4.6 - 7.1 :09 CBC W/Diff, Automated Comments: [facility] Kwzmvnkykw7166 [place], [address] Absolute Lymph 1.07 {X10_3/ul} (Normal) Range: 0.83-4.51 [...] 4.2-5.4 WBC 5.3 K/mm3 (Normal) Range: 4.4-11.0 36-Ddr-158454:09 Comprehensive Metabolic Profil Comments: [facility] Uozsxbgpse0951 [address] [place], [place], [address] GAP 7 (Normal) Range: 5-15 CO2 28.0 [...] 200 mg/dLsuggests DIABETES MELLITUS per A.D.A. criteria. 4-Stu-772740:42 CBC W/Diff, Automated Comments: At [facility] Outpatient [facility] Medical Oncologypatients receive CBC w/auto Differential ONLY. Physicianwill place an order for a manual differential or Pathologistreview at his discretion. [facility]. [address] [place] [address] GROUP LEADER SEMICONDUCTOR PROCESSING: MATEO CASTANEDA DO PH:[phone] performed at:[facility] [address] [place], [place] [address] Absolute Lymph 1.60 {X10_3/ul} (Normal) Range: 0.83-4.51 [...] 4.2-5.4 WBC 7.0 K/mm3 (Normal) Range: 4.4-11.0 6-Vom-316408:42 Comprehensive Metabolic Profil Comments: Serial Specimen #1, #2 or #3? 1Test performed at:[facility] Esogorhidi24[address] [place], [place] [address] GAP 9 (Normal) Range: 5-15 CO2 25.0 [...] Comments: Please note revised CREATININE reference range vacdfotxs88/22/2015. BUN 20 mg/dL (Abnormal) Range: 7-18 GLU 118 mg/dL (Abnormal) Range: 70-110 Comments: Fasting Glucose result from 110 to <126 mg/dLsuggests IMPAIRED HOMEOSTASIS per A.D.A. criteria. 9-Ddz-287843:42 LDH 133 U/L (Normal) Comments: Serial Specimen #1, #2 or #3? 1Test performed at:[facility] Lnpugvglpw7407 [place] [address] Range: 84-246 8-Tos-068926:42 Uric Acid Comments: Serial Specimen #1, #2 or #3? 1Test performed at:[facility] Cvwcirrtvc7817 [place] [address] URIC 4.6 mg/dL (Normal) Range: 2.6-6.0 :02 CBC W/Diff, Automated Comments: Test performed at:[facility] Pbvnlrlzlq3827 [place] [address] ; handled by vicki Absolute Lymph 1.23 [...] 4.2-5.4 WBC 4.1 K/mm3 (Abnormal) Range: 4.4-11.0 6-Bnm-158023:02 Comprehensive Metabolic Profil Comments: Test performed at:[facility] Qjcygsqxcr[address] [place], [place] [address] GAP 12 (Normal) Range: 5-15 CO2 23.0 [...] Comments: Please note revised CREATININE reference range bkilcoduo15/22/2015. BUN 11 mg/dL (Normal) Range: 7-18 GLU 214 mg/dL (Abnormal) Range: 70-110 Comments: Glucose result greater than or equal to 200 mg/dLsuggests DIABETES MELLITUS per A.D.A. criteria. 35-Lab-274068:49 VITAMIN B-12 (CYANOCOBALAMIN) Comments: PATIENT NOT FASTINGPERFORMED BY: [facility]CoSaint [facility] CenterDfytav9222 [facility] [id number] ([id number]) Vitamin B12 464 pg/mL (Normal) Range: 211-946 :49 Vitamin D Hydroxy (38369) Comments: PATIENT NOT FASTINGPERFORMED BY: [facility]6370 [facility] [id number] Vitamin D, 25-Hydroxy 11.5 ng/mL (Abnormal) Range: 30.0-100.0 Comments: Vitamin D deficiency has been defined by the [place] of[facility] and an Endocrine Society practice guideline as alevel of serum 25-OH vitamin D less than 20 ng/mL (1,2).The Endocrine Society went on to further define vitamin Dinsufficiency as a level between 21 and 29 ng/mL (2).1. IOM ([place] of Medicine). 2010. Dietary reference intakes for calcium and D. [place]: The National Academ[employer].2. Sami MF, Sophie MOORE, Xiomara LARES, et al. Evaluation, treatment, and prevention of vitamin D deficiency: an Endocrine Society clinical practice guideline. JCEM. 2010; 96(7):1911-30. :49 CBC W/AUTO DIFF WBC Comments: PATIENT NOT FASTINGPERFORMED BY: [facility]6370 [facility] [id number] Information: [id number] (24901) Immature Grans (Abs) 0.0 {x10E3/uL} (Normal) Range: [...] 3.77-5.28 WBC 6.1 {x10E3/uL} (Normal) Range: 3.4-10.8 42-Vhg-523137:28 URINE GENESIS CULTURE-NITA COL Comments: PATIENT NOT FASTINGPERFORMED BY: [facility] Femukp3970 [facility] [id number] Information: SRC:[facility] [id number] COUNT ([id number]) Antimicrobial MIHEAD (Normal) Comments: S = Susceptible; [...] Imipenem Meropenem Urine Final report (Abnormal) Culture,Comprehensive 12-Kyd-862056:24 Urinalysis, Office (11820) UA - LEUKOCYTE ESTERASE Trace (Normal) UA - NITRITE Negative (Normal) URINE UROBILINGN NITA TIMED Normal mg/dL (Normal) UA - PROTEIN 30 mg/dL (Normal) UA - PH 6 (Abnormal) UA - BLOOD Negative (Normal) UA - SPECIFIC GRAVITY 1.030 (Abnormal) UA - KETONES Moderate mg/dL (Normal) UA - BILIRUBIN Small (Normal) UA - GLUCOSE Negative (Normal) 01-Apr-20157:54 Bedside Glucose Comments: Test performed at:[facility] Llvnyqsdad6471 [facility] [place] [address] BEDSIDE GLU 129 mg/dL (Abnormal) Range: 70-110 Comments: MANAGEMENT OF PATIENT CARE PER NURSING PROTOCOL 31-Mar-20159:47 Urinalysis, Office (65239) UA - LEUKOCYTE ESTERASE Trace (Normal) UA - NITRITE Negative (Normal) URINE UROBILINGN NITA TIMED 2 mg/dL (Normal) UA - PROTEIN 300 mg/dL (Normal) UA - PH 6.0 (Normal) UA - BLOOD Hemolyzed Large (Normal) UA - SPECIFIC GRAVITY 1.030 (Abnormal) UA - KETONES 15 mg/dL (Abnormal) UA - BILIRUBIN Moderate (Normal) UA - GLUCOSE Negative (Normal) 72-Joc-296632:57 Basic Metabolic Profile (BMP) Comments: Test performed at:[facility] [address] [place], [place] [address] GAP 11 (Normal) Range: 5-15 CO2 27.0 [...] 126 mg/dLsuggests DIABETES MELLITUS per A.D.A. criteria. 71-Yyj-115553:57 Digoxin Level Comments: Test performed at:[facility] Vmtlpijnsj9156 [place] [address] DIG 1.17 ng/mL (Normal) Range: 0.80-2.00 17-Vms-163692:57 Hemoglobin A1c Comments: Test performed at:[facility] [address] [place] [address] HGB A1C 7.0 % (Abnormal) Range: 4.2-6.3 11-Pxw-414765:57 Thyroid Stim Hormone (TSH) Comments: Test performed at:[facility] [address] [place] [address] TSH 0.89 {uIU/mL} (Normal) Range: 0.358-3.74 1-Kfu-380765:17 Urine Culture,Comprehensive Comments: PATIENT NOT FASTINGPERFORMED BY: [facility]CoSaint [facility] CenterGzywij0856 [facility] [id number] Information: SRC:[facility] [id number] Result 1 BETAGB (Abnormal) Comments: Beta hemolytic [...] 02/28/15How was Urine Obtained? CLEAN CATCHTest performed at:[facility] Obkjptttdf6908 [place] [address] AMORPHOUS 1+ URATE (Normal) MUCUS, [...] :55 CBC W/Diff, Automated Comments: Test performed at:[facility] [address]auiwhit[address] [place] [address] Absolute Lymph 1.29 {X10_3/ul} (Normal) Range: [...] :55 Comprehensive Metabolic Profil Comments: Test performed at:[facility] Bcekgglvny[address] [place], [place] [address] GAP 10 (Normal) Range: 5-15 CO2 26.0 [...] A.D.A. criteria. :55 Lipase Comments: Test performed at:[facility] Iveubcezok[address] [place] [address] LIPASE 142 U/L (Normal) Range: 70-290 5-Buk-068629:40 HgA1C , Office (07776) HgA1C , Office 7.4 % (Abnormal) Range: 4.6 - 7.1 :03 CBC W/Diff, Automated Comments: Test performed at:[facility] Qxdnisynly9[address] [place] [address] Absolute Lymph 1.31 {X10_3/ul} (Normal) Range: 0.83-4.51 [...] :03 Comprehensive Metabolic Profil Comments: Test performed at:[facility] Wfemjnbhnp1517 [facility]. [place], [place] [address] GAP 11 (Normal) Range: 5-15 CO2 26.0 [...] 126 mg/dLsuggests DIABETES MELLITUS per A.D.A. criteria. 16-Whf-272319:00 Culture, Urine Comments: Test performed at:[facility] Bimowgzuer3125 [facility] [place] [address] CUUR See Note (Normal) Comments: Urine CultureORGANISM 1: Streptococcus agalactiae (B)[place] Count 1000-10,000 Streptococcus agalactiae (B): REACTION Ampicillin $ <=0.25 S Benzylpenicillin NF <=0.06 S Ceftriaxone (other dx) $ <=0.12 S Inducable Clindamycin Resistan - Linezolid $$$$ <=2 S Vancomycin $ 0.5 S(NF) indicates non-formulary drug at [facility]. Approval by Infectious Disease Specialist required before non-formulary drugs may be ordered and/or dispensed. * CLSI guidelines does not recommend testing of cephalosporins. This interpretation is deduced from Beta-lactam/penicillin results.; ADDENDA: handled by edvin :32 CBC W/Diff, Auto - EPLAB Only Comments: At [facility] Outpatient [facility], [facility] patientsreceive CBC w/auto Differential ONLY. Physician will placean order for a manual differential or Pathologist review athis discretion. [facility]. [address] [address] [place] [address] GROUP LEADER SEMICONDUCTOR PROCESSING: MATEO CASTANEDA DO PH:[phone] performed at:[facility] Fpzswjozff[address] [place], [place] [id number] ; [facility] Absolute Neut 2.7 {X10_3/uL} (Normal) Range: 2.0-7.7 [...] Specimen #1, #2 or #3? 1Test performed at:[facility] [address] [place], [place] [address] Range: 87-241 Comments: ADDENDA: elliott :34 TSH (58756) Comments: PATIENT WAS FASTINGPERFORMED BY: Glyc[employer] Zzmxui5546 [facility] [id number] TSH 1.240 {uIU/mL} (Normal) Range: 0.450-4.500 :34 LIPID PANEL (39149) Comments: PATIENT WAS FASTINGPERFORMED BY: [facility]Tr[facility]onia6370 [facility] [id number] LDL/HDL Ratio 2.6 {ratio_units} (Normal) Range: 0.0-3.2 [...] CREATININE RATIO Comments: PATIENT WAS FASTINGPERFORMED BY: [employer] Dxyxco0312 [facility] [id number]; non- emergent till apt tomorrow (25341) AND (43174) Microalb/Creat Ratio 14.8 {mg/g_creat} (Normal) Range: 0.0-30.0 Microalbumin, Urine 44.5 ug/mL (Abnormal) Range: 0.0-17.0 Creatinine, Urine 301.0 mg/dL (Abnormal) Range: 15.0-278.0 :34 METABOLIC PANEL, Comments: PATIENT WAS FASTINGPERFORMED BY: LabCoLos Alamos Medical CenterIqwuzi0944 [facility] [id number] Information: [id number] COMPREHENSIVE (26557) ALT (SGPT) 21 [iU]/L (Normal) Range: 0-32 [...] Glucose, Serum 161 mg/dL (Abnormal) Range: 65-99 8-Exb-557693:10 HgA1C , Office (50959) HgA1C , Office 7.2 % (Abnormal) Range: 4.6 - 7.1 :47 CBC W/Diff, Automated Comments: Test performed at:[facility] [address] [place], [place] [address] ; Handled by Vicki Absolute Lymph 1.43 [...] 4.2-5.4 WBC 5.4 K/mm3 (Normal) Range: 4.4-11.0 12-Qau-491373:47 Comprehensive Metabolic Profil Comments: Test performed at:[facility] [address]fm[address] [place], [place] [id number] GAP 6 (Normal) Range: 5-15 CO2 30.0 [...] Microscopic Examination Comments: PATIENT NOT FASTINGPERFORMED BY: FollozeLos Alamos Medical CenterDtcajs4491 [facility] [id number] Bacteria Few (Normal) Mucus Threads Present (Normal) Epithelial Cells (non renal) 0-10 {/hpf} (Normal) Range: 0 - 10 RBC 0-2 {/hpf} (Normal) Range: 0 - 2 WBC >30 {/hpf} (Abnormal) Range: 0 - 5 :01 Urinalysis, Routine Comments: PATIENT NOT FASTINGPERFORMED BY: Folloze Thrgxc7540 [facility] [id number] Microscopic Examination See below: (Normal) Comments: Microscopic was indicated and was performed. Nitrite, Urine Negative (Normal) Urobilinogen,Semi-Qn 0.2 mg/dL (Normal) Range: 0.0-1.9 Bilirubin Negative (Normal) Occult Blood Negative (Normal) Ketones Trace (Abnormal) Glucose Negative (Normal) Protein 1+ (Abnormal) WBC Esterase 3+ (Abnormal) Appearance Turbid (Abnormal) Urine-Color Yellow (Normal) pH 6.0 (Normal) Range: 5.0-7.5 Specific [place] 1.030 (Normal) Range: 1.005-1.030 70-Tpj-429544:18 CBCD ALC 1.30 {X10_3/ul} (Normal) Range: 0.83-4.51 [...] 4.2-5.4 WBC 4.5 K/mm3 (Normal) Range: 4.4-11.0 81-Mde-959563:18 CMP GAP 7 (Normal) Range: 5-15 CO2 [...] mg/dLsuggests DIABETES MELLITUS per A.D.A. criteria. :01 SZZHA-NDNFFQCNVYK-FTTWA (35362) Comments: PATIENT NOT FASTINGPERFORMED BY: [place] 1543070 [facility] [id number] AFP, Serum, Tumor Marker 7.1 ng/mL (Normal) Range: 0.0-8.3 Comments: Khanh ECLIA methodology :01 PTT (Activated Partial Comments: PATIENT NOT FASTINGPERFORMED BY: [facility]6370 [facility] [id number] Thromboplastin Time) (63341) aPTT 25 {sec} (Normal) Range: 24-33 Comments: This test has not been validated for monitoring unfractionated heparintherapy. aPTT-based therapeutic ranges for unfractionated heparintherapy have not been established. For general guidelines onHeparin monitoring, refer to the [facility] Directory of Services. :01 PT (Prothrobim Time) (72924) Comments: PATIENT NOT FASTINGPERFORMED BY: [place] 1543070 [facility] [id number] Prothrombin Time 10.4 {sec} (Normal) Range: 9.1-12.0 INR 1.0 (Normal) Range: 0.8-1.2 Comments: Reference interval is for non-anticoagulated patients. . Suggested INR therapeutic range for Vitamin K anta gonist therapy: Standard Dose (moderate intensity therapeutic range): 2.0 - 3.0 Higher intensity therapeutic range 2.5 - 3.5 :01 TSH (04101) Comments: PATIENT NOT FASTINGPERFORMED BY: LabCoSaint Barnabas Behavioral Health CenterWsxuid7456 [facility] [id number] TSH 1.450 {uIU/mL} (Normal) Range: 0.450-4.500 :01 CBC W/AUTO DIFF WBC Comments: PATIENT NOT FASTINGPERFORMED BY: LabCoSaint Barnabas Behavioral Health CenterKktbbz5646 [facility] [id number] Information: [id number] (11607) Immature Grans (Abs) 0.0 {x10E3/uL} (Normal) Range: [...] CREATININE RATIO Comments: PATIENT NOT FASTINGPERFORMED BY: GlycobiaSaint Barnabas Behavioral Health CenterCxomge6201 [facility] [id number] (13672) AND (64622) Microalb/Creat Ratio 26.4 {mg/g_creat} (Normal) Range: 0.0-30.0 Microalbumin, Urine 96.0 ug/mL (Abnormal) Range: 0.0-17.0 Creatinine, Urine 364.2 mg/dL (Abnormal) Range: 15.0-278.0 :01 METABOLIC PANEL, COMPREHENSIVE Comments: PATIENT NOT FASTINGPERFORMED BY: [employer] Nfbbim5979 [facility] [id number] (47493) ALT (SGPT) 19 [iU]/L (Normal) Range: 0-32 [...] mg/dL (Abnormal) Range: 65-99 :01 LIPID PANEL (82350) Comments: PATIENT NOT FASTINGPERFORMED BY: LabCoSaint Barnabas Behavioral Health CenterGwfggn7107 [facility] [id number] LDL/HDL Ratio 2.1 {ratio_units} (Normal) Range: 0.0-3.2 [...] (Normal) Range: 100-199 :19 HgA1C , Office (10657) HgA1C , Office 6.3 % (Normal) Range: 4.6 - 7.1 :11 LDH 205 U/L (Normal) Comments: Serial Specimen #1, #2 or #3? 1 Range: 87-241 73-Kbk-007702:10 ECBCD ANC 3.4 {X10_3/uL} (Normal) Range: 2.0-7.7 [...] 4.2-5.4 WBC 5.3 K/mm3 (Normal) Range: 4.4-11.0 5-Rdu-833193:07 CBCD ALC 1.71 {X10_3/ul} (Normal) Range: 0.83-4.51 [...] 4.2-5.4 WBC 7.0 K/mm3 (Normal) Range: 4.4-11.0 0-Whm-365789:07 CMP GAP 7 (Normal) Range: 5-15 CO2 [...] & Aerobic Comments: PATIENT NOT FASTINGPERFORMED BY: LabCoSaint Barnabas Behavioral Health CenterIcetqq9264 [facility] [id number] Information: SRC:EMIL [id number] RIGHT EYE Culture (36687) Antimicrobial MIHEAD (Normal) Comments: S = Susceptible; [...] hours. Anaerobic Culture Final report (Normal) :57 RYLAM-KMLTQCLYOYZ-JULVG (96690) Comments: PATIENT WAS FASTINGPERFORMED BY: Simplibuy TechnologiesTrinity Health Livonia6370 [facility] [id number] AFP, Serum, Tumor Marker 9.2 ng/mL (Abnormal) Range: 0.0-8.3 Comments: Khanh ECLIA methodology :57 PTT (Activated Partial Comments: PATIENT WAS FASTINGPERFORMED BY: [facility]6370 [facility] [place] [id number] Thromboplastin Time) (37794) aPTT 26 {sec} (Normal) Range: 24-33 Comments: This test has not been validated for monitoring unfractionated heparintherapy. aPTT-based therapeutic ranges for unfractionated heparintherapy have not been established. For general guidelines onHeparin monitoring, refer to the LabFreeman [facility] System Directory of Services. :57 PT (Prothrobim Time) (33324) Comments: PATIENT WAS FASTINGPERFORMED BY: GlycobiaSaint Barnabas Behavioral Health CenterNoryby7937 [facility] [id number] Prothrombin Time 10.5 {sec} (Normal) Range: 9.1-12.0 INR 1.0 (Normal) Range: 0.8-1.2 Comments: Reference interval is for non-anticoagulated patients. . Suggested INR therapeutic range for Vitamin K anta gonist therapy: Standard Dose (moderate intensity therapeutic range): 2.0 - 3.0 Higher intensity therapeutic range 2.5 - 3.5 :57 TSH (12120) Comments: PATIENT WAS FASTINGPERFORMED BY: GlycobiaSaint Barnabas Behavioral Health CenterJoyfwc3721 [facility] [id number] TSH 3.200 {uIU/mL} (Normal) Range: 0.450-4.500 :57 CBC WITH MANUAL DIFF Comments: PATIENT WAS FASTINGPERFORMED BY: Simplibuy TechnologiesTrinity Health Livonia6370 [facility] [id number] Information: [id number] (88809) Immature Grans (Abs) 0.0 {x10E3/uL} (Normal) Range: [...] PANEL, COMPREHENSIVE Comments: PATIENT WAS FASTINGPERFORMED BY: LabCoSaint Barnabas Behavioral Health CenterJbnlsk3188 [facility] [id number] (00543) ALT (SGPT) 15 [iU]/L (Normal) Range: 0-32 [...] (Abnormal) Range: 65-99 :29 HgA1C , Office (40864) HgA1C , Office 5.4 % (Normal) Range: [...] CHOL 150 mg/dL (Normal) Comments: <200 mg/dL Xkfvessub716-338 mg/dL Borderline>240 mg/dL High Risk :50 HgA1C , Office (75683) HgA1C , Office 5.8 % (Normal) Range: [...] [facility]. Approximately 10% of breast cancers are not detected by mammography. Anormal mammogram should not delay biopsy of a clinically suspiciousabnormality. Signed:Mele Santiago [facility] 2012 at 9:19:01 AM [phone] Signed GP/GP If you are the referring physician and would like to consult with theradiologist who provided this interpretation, please conta ct GabrielePedicelli, M.D. at [phone]. If this radiologist is unavailable, youwill be directed to another radiologist to assist. If you are a patient with a question regarding this report, pleaseco ntactyour referring physician directly. Professional Interpretation Provided By: Echodio, Phone , These documents contain legally protected [...] on 06/15/13920 Sign by: Prashant Delgadillo MD 59-Srz-36389:27 THYROID Radiology Report See Note Comments: STUDY: [...] Delgadillo M.D.June 15, 2013 at 2:56:26 PM [phone] Signed GP/GP If you are the referring physician and would like to consult with theradiologist who provided this interpretation, please contact Sarmad Bonilla at [phone]. If this radiologist is unavailable, youwill be directed to another radiologist to assist. If you are a patient with a question regarding this report, pleasecontactyour referring physician directly. Profes sional Interpretation Provided By: Echodio, Phone , These documents contain legally protected [...] 06/15/13 1733 Sign by: Prashant Delgadillo MD 5-Ftq-275551:18 URINE GENESIS CULTURE-NITA COL Comments: PATIENT NOT FASTINGPERFORMED BY: [facility] Wwzqfq2055 [facility] [id number] Information: SRC: [id number] COUNT (29495) Antimicrobial MIHEAD (Normal) Comments: S = Susceptible; [...] primarily for treating urinary tract infections. (CLSI, I527-E68,2009) Urine Culture,Comprehensive Final report (Normal) 04-Jun-20138:48 Urinalysis, Office (63682) UA - LEUKOCYTE ESTERASE Large (Normal) UA - NITRITE Positive (Normal) URINE UROBILINGN NITA TIMED 2 mg/dL (Normal) UA - PROTEIN Negative mg/dL (Normal) UA - BLOOD Negative (Normal) UA - KETONES Moderate mg/dL (Normal) UA - BILIRUBIN Moderate (Normal) UA - GLUCOSE Small mg/dL (Normal) 50-Eds-27725:06 MICROALBUMIN: CREATININE RATIO Comments: PATIENT WAS FASTINGPERFORMED BY: Folloze Ubedhh1811 [facility] [id number] (04817) AND (11833) Microalb/Creat Ratio 27.4 {mg/g_creat} (Normal) Range: 0.0-30.0 Microalbumin, Urine 85.2 ug/mL (Abnormal) Range: 0.0-17.0 Creatinine, Urine 311.1 mg/dL (Abnormal) Range: 15.0-278.0 51-Lou-59963:06 METABOLIC PANEL, Comments: PATIENT WAS FASTINGPERFORMED BY: Folloze Qxzxav2577 [facility] [id number] Information: ADD [id number] AND DRAW FEE 99 1313 COMPREHENSIVE (33685) ALT (SGPT) 29 [iU]/L (Normal) Range: 0-32 [...] Glucose, Serum 76 mg/dL (Normal) Range: 65-99 04-Sjw-30157:06 TSH (16051) Comments: PATIENT WAS FASTINGPERFORMED BY: [place] 1543070 [facility] [id number] TSH 3.040 {uIU/mL} (Normal) Range: 0.450-4.500 :06 LIPID PANEL (37304) Comments: PATIENT WAS FASTINGPERFORMED BY: [address] [id number] LDL/HDL Ratio 2.4 {ratio_units} (Normal) Range: 0.0-3.2 HDL Cholesterol 55 mg/dL (Normal) Comments: According to ATP-III Guidelines, HDL-C >59 mg/dL is considered anegative risk factor for CHD. LDL Cholesterol Calc 134 mg/dL (Abnormal) Range: 0-99 VLDL Cholesterol Ramandeep 18 mg/dL (Normal) Range: 5-40 Cholesterol, Total 207 mg/dL (Abnormal) Range: 100-199 Triglycerides 89 mg/dL (Normal) Range: 0-149 :06 TUEED-LYQSGOFYOGG-LFQUV (92941) Comments: PATIENT WAS FASTINGPERFORMED BY: [address] [id number] AFP, Serum, Tumor Marker 5.4 ng/mL (Normal) Range: 0.0-8.3 Comments: Khanh ECLIA methodology :06 PTT (Activated Partial Comments: PATIENT WAS FASTINGPERFORMED BY: [address] [id number] Thromboplastin Time) (73318) aPTT 27 {sec} (Normal) Range: 24-33 Comments: This test has not been validated for monitoring unfractionated heparintherapy. aPTT-based therapeutic ranges for unfractionated heparintherapy have not been established. For general guidelines onHeparin monitoring, refer to the [facility] Directory of Services. :06 PT (Prothrobim Time) (31579) Comments: PATIENT WAS FASTINGPERFORMED BY: [facility]6370 [facility] [id number] INR 1.1 (Normal) Range: 0.8-1.2 Comments: Reference interval is for non-anticoagulated patients. . Suggested INR therapeutic range for Vitamin K anta gonist therapy: Standard Dose (moderate intensity therapeutic range): 2.0 - 3.0 Higher intensity therapeutic range 2.5 - 3.5 Prothrombin Time 11.0 {sec} (Normal) Range: 9.1-12.0 :51 HgA1C , Office (37198) HgA1C , Office 5.0 % (Normal) Range: [...] mg/dL (Normal) Range: 70-110 :03 Rapid Flu (61826 x 2) Influenza A Ag positive b (Normal) :27 METABOLIC PANEL, COMPREHENSIVE Comments: PATIENT WAS FASTINGPERFORMED BY: LabCoSaint Barnabas Behavioral Health CenterWdacqi2284 [facility] [id number] (03047) ALT (SGPT) 25 [iU]/L (Normal) Range: 0-32 [...] mg/dL (Normal) Range: 65-99 :27 LIPID PANEL (26643) Comments: PATIENT WAS FASTINGPERFORMED BY: [employer] [facility] [id number] LDL/HDL Ratio 0.9 {ratio_units} (Normal) Range: 0.0-3.2 LDL Cholesterol Calc 29 mg/dL (Normal) Range: 0-99 VLDL Cholesterol Ramandeep 17 mg/dL (Normal) Range: 5-40 HDL Cholesterol 32 mg/dL (Abnormal) Comments: According to ATP-III Guidelines, HDL-C >59 mg/dL is considered anegative risk factor for CHD. Cholesterol, Total 78 mg/dL (Abnormal) Range: 100-199 Triglycerides 84 mg/dL (Normal) Range: 0-149 :27 TSH (07798) Comments: PATIENT WAS FASTINGPERFORMED BY: Glyc[employer] ParkerVision [facility] [id number] TSH 3.990 {uIU/mL} (Normal) Range: 0.450-4.500 :27 CBC WITH MANUAL DIFF Comments: PATIENT WAS FASTINGPERFORMED BY: GlycobiaSaint Barnabas Behavioral Health CenterNlltsg4469 [facility] [id number] Information: [id number] (56650) Immature Grans (Abs) 0.0 {x10E3/uL} Range: 0.0-0.1 [...] Khanh ECLIA methodologyPerformed at: - [facility] [address] [id number] Director: Manuelito Mendez PhD, Phone: [phone] 52-Vde-98842:39 CBCMD ANC 2.4 3/uL (Normal) Range: 2.0-7.7 [...] CHOL 130 mg/dL (Normal) Comments: <200 mg/dL Mbttqdtpt292-728 mg/dL Borderline>240 mg/dL High Risk :39 MIACRE tMICROCREAT 16.5 {mg/g_CRE} (Normal) MIALB 23.3 mg/L (Normal) CREU 141.0 mg/dL (Normal) :39 PT INR 1.1 (Normal) PTP 13.6 s (Normal) Range: 11.9-14.4 :39 PTT PTTP 29.5 s (Normal) Range: 24.1-36.2 :17 Rapid Flu (03062 x 2) Influenza A Ag neg (Normal) :29 HgA1C , Office (68750) HgA1C , Office 5.9 % (Normal) Range: 4.6 - 7.1 :53 FT3 2.9 pg/mL (Normal) Range: 2.18-3.98 :53 T4F 1.26 ng/dL (Normal) Range: 0.76-1.46 :53 TPO 8 {IU/mL} (Normal) Range: 0-34 Comments: Performed at: - [facility] [address] [id number] Director: Codi Robles MD, Phone: [phone] 97-Bvl-629565:53 TSH 1.23 {uIU/mL} (Normal) Range: 0.358-3.74 :04 HgA1C , Office (16320) HgA1C , Office 5.8 % (Normal) Range: 4.6 - 7.1 :26 CBCMD Comments: ORDERED TSH LIPID CMP CBCMD [facility]ITALDR.JACINDA ORDERED VITD CMP CBCD RBCM NORM C+C [...] CMP Comments: ORDERED TSH LIPID CMP CBCMD MIACREDR.JACINDA ORDERED VITD CMP CBCD GAP 8 (Normal) [...] :26 LIPID Comments: ORDERED TSH LIPID CMP [facility]JO[facility] ENRIQUE ORDERED VITD CMP CBCD VLDL 21 [...] {uIU/mL} (Normal) Comments: ORDERED TSH LIPID CMP [facility]PITALEVELIN ORDERED VITD CMP CBCD Range: 0.358-3.74 :26 VITD 44.8 ng/mL (Normal) Comments: ORDERED TSH LIPID CMP [facility]PITALEVELINKI ORDERED VITD CMP CBCD Range: 30.0-100.0 Comments: Vitamin D deficiency has been defined by the [place] ofMedicine and an Endocrine Society practice guideline as alevel of serum 25-OH vitamin D less than 20 ng/mL (1,2).The Endocrine Society went on to further define vitamin Dinsufficiency as a level between 21 and 29 ng/mL (2).1. IOM ([place] of Medicine). 2010. Dietary reference intakes for calcium and D. [place]: The National Academies Press.2. Sami MF, Sophie MOORE, Xiomara LARES, et al. Evaluation, treatment, and prevention of vitamin D deficiency: an Endocrine Society clinical practice guideline. JCEM. 2010; 96(7): 1911-30.Performed at: [address] [id number] Director: Codi Robles MD, Phone: [phone] 27-Jan-20128:02 BILAT SCRN DIGITAL & CAD Radiology [...] Signed GP/GP Professional Interpretat ion Provided By: [facility] RadiologyCop[facility], , To consult with a radiologist regarding this report, please call our 10O8uapjasj line @ Dicta dani on 01/27/12 0813 by Faustina KING,GabrieleTranscribed on 01/27/12 0950 by ITS IMPORTSign by Faustina KING,Prashant on 01/27/12 0951 Sign by: Prashant Delgadillo MD 46-Evk-415907:24 HgA1C , Office (49020) HgA1C , Office 5.7 % (Normal) Range: 4.6 - 7.1 97-Wrc-993295:24 Blood Glucose , Office (31393) Blood Glucose , Office 89 (Normal) 84-Gvy-412964:31 Urinalysis, Office (81606) UA - LEUKOCYTE ESTERASE Small (Normal) UA - NITRITE Positive (Normal) URINE UROBILINGN NITA TIMED Normal mg/dL (Normal) UA - PROTEIN 300 mg/dL (Normal) UA - PH 6.0 (Normal) UA - SPECIFIC GRAVITY 1.025 (Normal) UA - KETONES Small mg/dL (Normal) UA - BILIRUBIN Moderate (Normal) UA - GLUCOSE Negative (Normal) :15 HgA1C , Office (01133) HgA1C , Office 6.8 % (Normal) Range: 4.6 - 7.1 :15 Blood Glucose , Office (71169) Blood Glucose , Office 162 (Normal) 07-Gqc-176349:22 THYROID Radiology Report See Note (Normal) Comments: [...] 09/08/11 1330 Sign by: Prashant Delgadillo MD 40-Jzu-40145:59 COMP METABOLIC GAP 9 (Normal) Range: 5-15 [...] COL Comments: PATIENT NOT FASTINGPERFORMED BY: [facility] Ijbaai4037 [facility] [id number] Information: SRC:UR [id number] COUNT (30207) Antimicrobial MIHEAD (Normal) Comments: S = Susceptible; [...] Final report Culture,Comprehensive (Normal) :32 Urinalysis, Office (04850) UA - LEUKOCYTE ESTERASE Moderate (Normal) URINE UROBILINGN NITA TIMED Normal mg/dL (Normal) UA - PROTEIN 100 mg/dL (Normal) UA - PH 6.0 (Normal) UA - BLOOD Hemolyzed Large (Normal) UA - SPECIFIC GRAVITY 1.025 (Normal) UA - KETONES Negative mg/dL (Normal) UA - BILIRUBIN Negative (Normal) UA - GLUCOSE Negative (Normal) :28 Blood Glucose , Office (88792) Blood Glucose , Office 223 (Normal) :10 Urinalysis, Office (72837) UA - BILIRUBIN Small (Normal) UA - BLOOD Hemolyzed Large (Normal) UA - GLUCOSE Small (Normal) Comments: 100 UA - KETONES Negative mg/dL (Normal) UA - LEUKOCYTE ESTERASE Trace (Normal) UA - NITRITE Positive (Normal) UA - PH 5.0 (Normal) UA - PROTEIN 300 mg/dL (Normal) UA - SPECIFIC GRAVITY 1.020 (Normal) URINE UROBILINGN NITA TIMED 2 mg/dL (Normal) 0-Pkg-255150:29 URINE GENESIS CULTURE-NITA COL Comments: PATIENT NOT FASTINGPERFORMED BY: [facility] Tvxjbf9348 [facility] [id number] Information: SRC:UR [id number] COUNT (51619) Antimicrobial MIHEAD (Normal) Comments: S = Susceptible; [...] mL (Normal) Urine Final report (Normal) Culture,Comprehensive 4-Smp-793421:31 Urinalysis, Office (26202) UA - BILIRUBIN Large (Normal) UA - [...] (Abnormal) Range: 0.358-3.74 :28 HgA1C , Office (77479) HgA1C , Office 8.3 % (Abnormal) Range: 4.6 - 7.1 :28 Blood Glucose , Office (95091) Blood Glucose , Office 176 (Normal) :24 [...] 200-240 mg/dL Borderline >240 mg/dL High Risk 75-Uvq-836070:54 BRAIN/HEAD W/WO CONTRAST Radiology See Note Comments: [...] CT scan of the brain. Dictated on 10/13/102 by Arnaldo Delgadillo MDrieleTranscribed on 10/13/101457 by [...] Prashant Delgadillo MD :44 HgA1C , Office (60302) HgA1C , Office 7.4 % (Abnormal) Range: 4.6 - 7.1 :44 Blood Glucose , Office (64468) Blood Glucose , Office 206 (Normal) :37 [...] Report See Note (Normal) Comments: Exam Number: [id number] AMMOGRAPHY - BILATERAL SCREENING INDICATION:Routine annual screening [...] attaching a ResultCode to this exam. ADDENDUM: [id number] HPBI/MDS Reported By: PRASHANT DELGADILLO :14 HgA1C , Office (14213) HgA1C , Office 7.0 % (Normal) Range: 4.6 - 7.1 :14 Blood Glucose , Office (02048) Blood Glucose , Office 164 (Normal) :30 LASHA DIR SEMI-QL LASHA DIRECT 24 AU/mL (Normal) :30 ANTI-dsDNA AB 10 {IU/mL} (Normal) :30 TSH 6.39 {uIU/mL} (Abnormal) Range: 0.358-3.74 76-Pvy-005061:35 C-REACTIVE PROTEIN (46723) Comments: PATIENT NOT FASTINGPERFORMED BY: LabCoSaint Barnabas Behavioral Health CenterPbnpob6419 [facility] [id number] C-Reactive Protein, Quant 6.5 mg/L (Abnormal) Range: 0.0-4.9 99-Rvj-635010:35 SED RATE ERYTHROCYTE (86420) Comments: PATIENT NOT FASTINGPERFORMED BY: [facility]6370 [facility] [id number] Sedimentation Rate-Westergren 14 mm/h (Normal) Range: 0-20 24-Auv-538352:35 RHEUMATOID FACTOR-QUANT (91986) Comments: PATIENT NOT FASTINGPERFORMED BY: [facility]Tr[facility]onia6370 [facility] [id number] RA Latex Turbid. 7.6 {IU/mL} (Normal) Range: 0.0-13.9 24-Siu-908771:35 LASHA (ANTINUCLEAR ANTIBODY) Comments: PATIENT NOT FASTINGPERFORMED BY: [facility]6370 [facility] [id number] (60860) LASHA Direct Positive (Abnormal) :35 T3, FREE (TRIDOTHYRONINE) (07423) Comments: PATIENT NOT FASTINGPERFORMED BY: [facility]6370 [facility] [id number] Triiodothyronine,Free,Serum 2.8 pg/mL (Normal) Range: 2.0-4.4 39-Jzw-599234:35 T4, FREE (THYROXINE) (57285) Comments: PATIENT NOT FASTINGPERFORMED BY: [facility]6370 [facility] [id number] T4,Free(Direct) 0.76 ng/dL (Abnormal) Range: 0.82-1.77 75-Niv-688679:35 Anti-TPO Antibody (56432) Comments: PATIENT NOT FASTINGPERFORMED BY: [facility]6370 [facility] [id number] Thyroid Peroxidase (TPO) Ab <6 {IU/mL} (Normal) Range: 0-34 32-Emy-144142:35 TSH (80436) Comments: PATIENT NOT FASTINGPERFORMED BY: [facility]6370 [facility] [id number] TSH 5.630 {uIU/mL} (Abnormal) Range: 0.450-4.500 Comments: Please note reference interval change 12-Riz-109289:35 METABOLIC PANEL, Comments: PATIENT NOT FASTINGPERFORMED BY: [facility] Wmirfo[address] [facility] [id number] Information: [id number] COMPREHENSIVE (87509) ALT (SGPT) 55 [iU]/L (Abnormal) Range: 0-40 [...] Glucose, Serum 151 mg/dL (Abnormal) Range: 65-99 47-Kye-063451:02 GENESIS CULTURE-OTHER (89422) Comments: PATIENT NOT FASTINGPERFORMED BY: REINALDO [facility] [id number] [facility] [id number] Information: SRC:THRT [id number] Result 1 Yeast isolated. (Normal) Comments: Moderate growthRequest for further identification must be madewithin 1 week. Upper Respiratory Culture Final report (Normal) 65-Lwo-69670:37 Rapid Strep Test, Office (70305) Rapid Strep Test, Office Negative (Normal) 17-Fci-180657:11 THYROID (HP) Radiology Report See Note (Normal) Comments: Exam Number: [id number] CLINICAL:This is a 45-year-old female patient with [...] CHOL 147 mg/dL (Normal) Comments: <200 mg/dL Cgmeoyzaf888-500 mg/dL Borderline>240 mg/dL High Risk HDL 32 [...] :41 TSH 4.85 {uIU/mL} (Abnormal) Range: 0.358-3.74 80-Jrj-138486:50 URINE GENESIS CULTURE-NITA COL Comments: PATIENT NOT FASTINGPERFORMED BY: [facility] [id number] [facility] [id number] Information: SRC:UR ADD [id number] COUNT (29460) Result 1 Klebsiella pneumoniae Comments: 1,000 Colonies/mL [...] STrimethoprim/Sulfa S Urine Final report (Normal) Culture,Comprehensive 63-Ljd-61654:55 Urinalysis, Office (47208) UA - LEUKOCYTE ESTERASE Small (Normal) UA - NITRITE Negative (Normal) URINE UROBILINGN NITA TIMED Normal mg/dL (Normal) UA - PROTEIN 30 mg/dL (Normal) UA - PH 6.0 (Normal) UA - BLOOD Negative (Normal) UA - SPECIFIC GRAVITY 1.020 (Normal) UA - KETONES Negative mg/dL (Normal) UA - BILIRUBIN Negative (Normal) UA - GLUCOSE Negative (Normal) 2-Whw-878579:37 PET/CT,TUMOR,BASE-THIGH,SUBS Radiology Report See Note (Normal) Comments: Exam Number: [id number] EXAM: Body PET study Head to Mid [...] 44:398P, 2003). w Reported By: ADELA MOLINA 3-Wrv-642594:00 PRANEETH+ELPU24 3467 ALBUMIN,U 37.7 % (Normal) AKESM-2-YSQJ,U 3.2 % (Normal) BPWYH-5-ALIY,U 7.6 % (Normal) BETA GLOB,U 23.1 % (Normal) GAMMA GLOB,U 28.5 % (Normal) PRANEETH RESULT,U Comment (Normal) Comments: No monoclonality detected. M-SPIKE,UR% SeeNote % (Normal) Comments: Result: Not Observed PROTEIN, U24 62.1 {mg/24_hr} Range: 30.0-150.0 (Normal) PROTEIN,UR 2.3 mg/dL (Normal) Range: 0.0-15.0 3-Cgj-291814:15 C-REACTIVE PROT < 2.90 mg/L (Normal) Range: 0.0-3.0 Comments: C-Reactive Protein (CRP) provides useful information for thediagnosis, therapy and monitoring of inflammatory processesand associated diseases. For the evaluation of Relative Riskfor Cardiovascular Dise ase, a High Sensitivity CRP (HSCRP)should be ordered. 7-Krf-259761:15 CBCD,SMEAR DIFF PLT EST SeeNote (Normal) Comments: [...] 4.2-5.4 WBC 4.3 K/mm3 (Abnormal) Range: 4.4-11.0 9-Zhp-911160:15 COMP METABOLIC CL 104 mmol/L (Normal) Range: [...] <126 mg/dLsuggests IMPAIRED HOMEOSTASIS per A.D.A. criteria. 8-Laj-214415:15 ESR SED RATE 11 mm/h (Normal) Range: 0-20 5-Zsy-590540:15 LDH 197 U/L (Abnormal) Range: 100-190 1-Bdk-289018:15 LIPID HDL 30 mg/dL (Abnormal) Comments: Reference [...] CHOL 154 mg/dL (Normal) Comments: <200 mg/dL Oaqdofcro100-651 mg/dL Borderline>240 mg/dL High Risk 3-Ahg-441439:15 PROT.[id number] NOTE Comment (Normal) Comments: Protein electrophoresis scan will follow via computer,mail, or maintenance data analyst delivery.Performed at: [facility] [address] [id number] Director: Kamlesh Arana MD ALBUMIN,UR 54.2 % (Normal) TOLIQ-9-YCBL,U 1.2 % (Normal) EXIZZ-8-SIQZ,U 9.4 % (Normal) BETA GLOB,U 23.4 % (Normal) GAMMA GLOB,U 11.8 % (Normal) M-SPIKE,U SeeNote % (Normal) Comments: Result: Not Observed PROTEIN,UR 13.6 mg/dL (Normal) Range: 0.0-15.0 0-Omq-068399:15 SPE [id number] A/G RATIO 1.8 (Normal) Range: 0.7-2.0 GLOBULIN, [...] electrophoresis scan will follow via computer,mail, or maintenance data analyst delivery. M-SPIKE SeeNote g/dL (Normal) Comments: Result: Not Observed GAMMA GLOBULIN 0.4 g/dL (Abnormal) Range: 0.5-1.6 ALBUMIN 3.9 g/dL (Normal) Range: 3.2-5.6 ALPHA-1 GLOBUL 0.2 g/dL (Normal) Range: 0.1-0.4 ALPHA-2 GLOBUL 0.7 g/dL (Normal) Range: 0.4-1.2 BETA GLOBULIN 0.9 g/dL (Normal) Range: 0.6-1.3 PROTEIN,TOTAL 6.1 g/dL (Normal) Range: 6.0-8.5 55-Cxe-619028:28 BRAIN/HEAD WITHOUT CONTRAST Radiology Report See Note (Normal) Comments: Exam Number: [id number] CT SCAN OF BRAIN HISTORYLytic lesion, lymphoma. Scans were obtained at 2.5-mm intervals through the posterior fossaand 5-mm intervals through the remainder of the brai n. The [facility] entstudy is compared to the examination [...] for confirmation. Reported By: TRUE NAGEL M.D. 49-Bfh-874406:23 SPINE,CERVICAL WITHOUT CONTRAS Radiology Report See Note (Normal) Comments: Exam Number: [id number] CLINICAL:44 year old female with cervical radiculopathy. [...] tumor involvement. Reported By: SHARYN JASMINE M.D. 41-Bvc-970574:50 Blood Glucose , Office (01925) Blood Glucose , Office 105 (Normal) 10-Oaf-527202:50 HgA1C , Office (39792) HgA1C , Office 6.1 % (Normal) Range: 4.6 - 7.1 19-Lug-709802:24 URINE GENESIS CULTURE-NITA COL Comments: PATIENT NOT FASTINGPERFORMED BY: REINALDO [facility] [id number] [facility] [id number] Information: SRC:INGRID [id number] COUNT (59693) Antimicrobial MIHEAD (Normal) Comments: S = Susceptible; [...] mL (Normal) Urine Final report (Normal) Culture,Comprehensive 13-Vza-482391:41 Urinalysis, Office (64513) UA - LEUKOCYTE ESTERASE Large (Normal) UA - NITRITE Negative (Normal) URINE UROBILINGN NITA TIMED Normal mg/dL (Normal) UA - PROTEIN 100 mg/dL (Normal) UA - PH 5.0 (Normal) UA - BLOOD Hemolyzed Large (Normal) UA - SPECIFIC GRAVITY 1.025 (Normal) UA - KETONES Negative mg/dL (Normal) UA - BILIRUBIN Negative (Normal) UA - GLUCOSE Negative (Normal) 0-Paj-724869:19 BLOOD GAS, O2 SAT ONLY - INITL Radiology Report See Note (Normal) Comments: Exam Number: [id number] Procedure completed. Please see MEDICAL RECORDS reports in PCI - OP - OP NOTE LET - LETTER. Reported By: BOONE CH M.D. 6-Gky-975490:19 BLOOD GAS, O2 SAT ONLY - SUBSQ Radiology Report See Note (Normal) Comments: Exam Number: [id number] Procedure completed. Please see MEDICAL RECORDS reports in PCI - OP - OP NOTE LET - LETTER. Reported By: BOONE HC M.D. 4-Rcc-364865:19 BLOOD GAS, O2 SAT ONLY - SUBSQ Radiology Report See Note (Normal) Comments: Exam Number: [id number] Procedure completed. Please see MEDICAL RECORDS reports in PCI - OP - OP NOTE LET - LETTER. Reported By: BOONE CH M.D. 04-Aug-20096:45 RHC/LHC/CORS/LV Radiology Report See Note (Normal) Comments: Exam Number: [id number] Procedure completed. Please see MEDICAL RECORDS reports [...] MIXED GRAM POSITIVE ORGANISMS :58 Urinalysis, Office (49663) UA - BILIRUBIN Negative (Normal) UA - BLOOD Negative (Normal) UA - GLUCOSE Negative (Normal) UA - KETONES Negative mg/dL (Normal) UA - LEUKOCYTE ESTERASE Small (Normal) Comments: aw UA - NITRITE Negative (Normal) UA - PH 6.0 (Normal) UA - PROTEIN Negative mg/dL (Normal) UA - SPECIFIC GRAVITY 1.010 (Normal) URINE UROBILINGN NITA TIMED Normal mg/dL (Normal) :53 HgA1C , Office (36478) HgA1C , Office 5.7 % (Normal) Range: 4.6 - 7.1 :53 Blood Glucose , Office (46060) Blood Glucose , Office 133 (Normal) :24 [...] (Normal) Range: 6.4-8.2 :53 HgA1C , Office (24139) HgA1C , Office 10.0 % (Abnormal) Range: 4.6 - 7.1 :53 Blood Glucose , Office (49073) Blood Glucose , Office 410 (Normal) :46 [...] 11.6-14.6 WBC 4.0 K/mm3 (Abnormal) Range: 4.4-11.0 5-Mdm-823144:46 COMP METABOLIC A/G 1.2 {RATIO} (Normal) Range: [...] 200 mg/dLsuggests DIABETES MELLITUS per A.D.A. criteria. 5-Mah-865453:46 D BILI 0.12 mg/dL (Normal) Range: 0.00-0.30 0-Swu-673309:46 LIPID CHOL 158 mg/dL (Normal) Comments: <200 [...] mg/L (Normal) UR CREAT 186.7 mg/dL (Normal) 40-Dlz-360591:11 LIPID Comments: PATIENT NOT FASTING/DEMANDED TO BE [...] 500 mg/dL VLDL 31 mg/dL (Normal) Range: 23-Dec-200812:11 LIVER Comments: PATIENT NOT FASTING/DEMANDED TO BE DRAWN ALT 43 U/L (Normal) Range: 30-65 D BILI 0.07 mg/dL (Normal) Range: 0.00-0.30 T BILI 0.35 mg/dL (Normal) Range: 0.00-1.00 ALB 3.4 g/dL (Normal) Range: 3.4-5.0 ALK P 210 U/L (Abnormal) Range: 50-136 AST 27 U/L (Normal) Range: 15-37 T PROT 6.4 g/dL (Normal) Range: 6.4-8.2 63-Afh-312738:23 Urinalysis, Office (35050) Comments: done BC UA - BILIRUBIN Negative (Normal) UA - BLOOD Hemolyzed Large (Normal) UA - GLUCOSE Large (Normal) Comments: > 1000mg/dL UA - KETONES Negative mg/dL (Normal) UA - LEUKOCYTE ESTERASE Moderate (Normal) UA - NITRITE Negative (Normal) UA - PH 6.0 (Normal) UA - PROTEIN 30 mg/dL (Normal) UA - SPECIFIC GRAVITY 1.010 (Normal) URINE UROBILINGN NITA TIMED Normal mg/dL (Normal) 51-Mwz-118843:44 MYOCARD PERF SPECT REST/STRESS Radiology Report See Note (Normal) Comments: Exam Number: [id number] MYOCARDIAL PERFUSION SCAN TECHNIQUEThe patient was injected [...] of 37%. Reported By: NOE MORRIS M.D. 77-Nbq-69571:39 SPINE, LUMBAR W/W/O CONTRAST Radiology Report See Note (Normal) Comments: Exam Number: [id number] MAGNETIC RESONANCE IMAGING OF THE LUMBAR SPINE [...] other abnormality. Reported By: SUSAN GOMEZ M.D. 30-Bei-060024:04 CULTURE, URINE URINE CULTURE See Note {CFU/mL} (Normal) Comments: COLONY COUNT 25,000-50,000 ORGANISM 1: MIXED GRAM POSITIVE ORGANISMS 67-Nyq-603369:15 Urinalysis, Office (77219) UA - LEUKOCYTE ESTERASE Small (Normal) Comments: aw UA - NITRITE Negative (Normal) UA - PH 5.0 (Normal) UA - PROTEIN Negative mg/dL (Normal) URINE UROBILINGN NITA TIMED Normal mg/dL (Normal) UA - BILIRUBIN Negative (Normal) UA - BLOOD Negative (Normal) UA - GLUCOSE Negative (Normal) UA - KETONES Negative mg/dL (Normal) UA - SPECIFIC GRAVITY 1.025 (Normal) 60-Zld-497922:09 Blood Glucose , Office (87263) Blood Glucose , Office 231 (Normal) 15-Ctb-476719:09 HgA1C , Office (53162) HgA1C , Office 7.1 % (Normal) Range: [...] for patient's is the eGFRmultiplied by 1.212. [facility] Laboratory uses the abbreviated Modification of [...] Disease W/O Kidney Disease>/= 90 Stage One Tembiz52 - 89 Stage Two Suspect Decreased GFR30 [...] T PROT 6.5 g/dL (Normal) Range: 6.4-8.2 34-Zrs-198351:42 LIPID CHOL 182 mg/dL (Normal) Comments: <200 [...] mg/dL VLDL 36 mg/dL (Normal) Range: 5-40 72-Mxm-810263:42 MICROALB:CRE UR MALB:CREAT 35.4 {mg/g_CRE} (Abnormal) MICROALBUMIN,UR 54.7 mg/L (Normal) UR CREAT 154.6 mg/dL (Normal) 74-Qkr-298661:42 TSH 2.57 {uIU/mL} (Normal) Range: 0.34-4.82 :40 CULTURE, URINE URINE CULTURE See Note {CFU/mL} (Normal) Comments: COLONY COUNT 1000-10,000 ORGANISM 1: MIXED GRAM POS & NEG ORGANISMS 25-Viv-517245:36 Urinalysis, Office (43445) UA - BILIRUBIN Negative (Normal) UA - BLOOD Non Hemolyzed Trace (Normal) UA - KETONES Negative mg/dL (Normal) UA - LEUKOCYTE ESTERASE Moderate (Normal) UA - NITRITE Negative (Normal) UA - PH 5.0 (Normal) UA - PROTEIN Negative mg/dL (Normal) UA - SPECIFIC GRAVITY 1.015 (Normal) URINE UROBILINGN NITA TIMED Normal mg/dL (Normal) UA - GLUCOSE Negative (Normal) :20 CULTURE, URINE URINE CULTURE See Note {CFU/mL} (Normal) Comments: COLONY COUNT 25,000-50,000 ORGANISM 1: MIXED GRAM POS & NEG ORGANISMS :12 Urinalysis, Office (88299) UA - BILIRUBIN Negative (Normal) UA - BLOOD Negative (Normal) UA - GLUCOSE Negative (Normal) UA - KETONES Negative mg/dL (Normal) UA - LEUKOCYTE ESTERASE Small (Normal) UA - NITRITE Negative (Normal) UA - PH 6.0 (Normal) UA - PROTEIN Negative mg/dL (Normal) UA - SPECIFIC GRAVITY 1.005 (Normal) URINE UROBILINGN NITA TIMED Normal mg/dL (Normal) 73-Lzh-080516:08 CBCD,SMEAR DIFF CELLS COUNTED 100 (Normal) EOS [...] 47-70 WBC 5.1 K/mm3 (Normal) Range: 4.4-11.0 51-Ksw-456359:08 COMP METABOLIC A/G 1.5 {RATIO} (Normal) Range: [...] Range: 0.34-4.82 :28 Blood Glucose , Office (42191) Blood Glucose , Office 124 (Normal) :28 HgA1C , Office (45731) HgA1C , Office 6.1 % (Normal) Range: 4.6 - 7.1 :38 CERULOPLAS 1560 21.3 mg/dL (Normal) Range: 17.9-53.3 Comments: Performed At: [facility] [place] [address] [id number] FERRITIN 189 ng/mL (Normal) Range: 8-252 :38 HEP-ABC 887269 HB CORE [id number] SeeNote (Normal) Comments: Result: Negative HB SURF [...] Please note reference interval change HEP A AB,T.8323 SeeNote (Normal) Comments: Result: Negative HEP A IgM 6734 SeeNote (Normal) Comments: Result: Negative HEP B CORE,TOT SeeNote (Normal) Comments: Result: Negative HVC Ab <0.1 (Normal) Range: 0.0-0.9 Comments: NegativeNot infected with HCV, unless recent infection issuspected or other evidence exists to indicate HCVinfection. AMENDED REPORT 05/21/081907 HVC Ab previously reported as: RIBA RESULT <TEST NOT PERFORMED> (Normal) 20-Ovi-240936:38 LIVER ALB 3.5 g/dL (Normal) Range: 3.4-5.0 ALK P 162 U/L (Abnormal) Range: 50-136 ALT 50 U/L (Normal) Range: 30-65 AST 21 U/L (Normal) Range: 15-37 D BILI 0.05 mg/dL (Normal) Range: 0.00-0.30 T BILI 0.38 mg/dL (Normal) Range: 0.00-1.00 T PROT 6.5 g/dL (Normal) Range: 6.4-8.2 50-Fts-878801:38 MITOCHN AB 6650 <20.0 {Units} (Normal) Range: [...] T PROT 6.5 g/dL (Normal) Range: 6.4-8.2 0-Ldu-292944:02 THYROID (HP) Radiology Report See Note (Normal) Comments: Exam Number: [id number] THYROID ULTRASOUND HISTORYThyromegaly. High-resolution, real-time linear images [...] is recommended. Reported By: TRUE NAGEL M.D. 17-Ndm-769657:05 Blood Glucose , Office (17518) Blood Glucose , Office 135 (Normal) 09-Wng-664682:05 HgA1C , Office (65903) HgA1C , Office 5.6 % (Normal) Range: 4.6 - 7.1 93-Wrj-61244:02 CBCD,SMEAR DIFF ANISO 1+ (Normal) CELLS COUNTED [...] Report See Note (Normal) Comments: Exam Number: [id number] CT BRAIN WITHOUT AND WITH INTRAVENOUS CONTRAST [...] clinically warranted. Reported By: AIDAN MASON M.D. 37-Psv-723545:30 CBCD Comments: CALL [phone] TO [phone] BASO% 0.8 % (Normal) Range: 0-1 EO% [...] 1+ANISOCYTOSIS WBC 3.8 K/mm3 (Abnormal) Range: 4.4-11.0 :30 COMP METABOLIC Comments: CALL [phone] TO [phone] A/G 1.5 {RATIO} (Normal) Range: 0.9-2.4 ALB [...] T PROT 5.9 g/dL (Abnormal) Range: 6.4-8.2 04-Gcv-680558:30 LDH 206 U/L (Abnormal) Comments: CALL [phone] TO [phone] Range: 100-190 :30 URIC 5.7 mg/dL (Normal) Comments: CALL [phone] TO [phone] Range: 2.6-6.0 :30 CULT, DP WOUND Comments: [...] mg/dL (Abnormal) Range: 40-230 Comments: Performed At: [address] [id number] :[id number] LDH 211 U/L (Abnormal) Range: 100-190 [...] PT IN CATHLABPrecautions*: NOT APPLICABLE Range: 0.34-4.82 62-Ckx-913727:20 BMP Comments: COMMENTS: BED 13 FASTPrecautions*: NOT [...] 136-145 :20 CBCD Comments: COMMENTS: BED 13 FASTPrecautionsharath*: NOT APPLICABLE BAND 9 % (Abnormal) Range: [...] 47-70 WBC 23.9 K/mm3 (Abnormal) Range: 4.4-11.0 :30 AFB C&S 543997 Comments: Precautions*: CHEMO PRECAUTIONSSPECIMEN DESCRIPTION: #2 SAME [...] for testing. ec-2 BF/CSF (Normal) 0069 :30 05-Ekg-60794:30 FLUID P-FLU (Normal) Comments: OPERATION Not noted [...] DRAWN 07/22/06-TEST MISSED Range: 100-190 :51 SPE [id number] A/G RATIO 1.3 (Normal) Range: 0.7-2.0 ALBUMIN [...] Evidenceof monoclonal protein is not apparent.Performed At: [facility] [place] [address] [id number] M-SPIKE SeeNote (Normal) Comments: Result: Not Observed NOTE: Comment (Normal) Comments: Protein electrophoresis scan will follow via mail orcourier. PROTEIN,TOTAL 6.5 g/dL (Normal) Range: 6.0-8.5 :49 Blood Glucose , Office (82437) Blood Glucose , Office 84 (Normal) :49 HgA1C , Office (60939) HgA1C , Office 6.6 % (Normal) Range: [...] BMI 34.0-34.9,adult BMI 34.0-34.9,adult : Eprescribed prescriptions (G85) Indication: BMI 34.0-34.9,adult Mixed hyperlipidemia : Diet, [...] Paroxysmal tachycardia Planned Observations METABOLIC PANEL, BASIC (62759)Indication: CHF (congestive heart failure) On: 82-Xlb-186684:05 Request CPK MB FRACTION (55239)Indication: SOB (shortness of breath) On: :21 Request Comments: stat ASSAY, TROPONIN, QUANTITATIVE (aka Troponin I) (08992)Indication: SOB (shortness of breath) On: :21 Request Comments: stat CBC W/AUTO DIFF WBC (72306)Indication: SOB (shortness of breath) On: :08 Request Comments: stat METABOLIC PANEL, COMPREHENSIVE (14080)Indication: SOB (shortness of breath) On: :08 Request Comments: stat D-Dimer (28480)Indication: SOB (shortness of breath) On: :08 Request Comments: stat BNTP (74145)Indication: SOB (shortness of breath) On: :08 Request Comments: stat CBC with auto diff (81479)Indication: Diabetes mellitus type II, controlled On: :03 Request LIPID PANEL (45594)Indication: Diabetes mellitus type II, controlled On: :03 Request METABOLIC PANEL, COMPREHENSIVE (07725)Indication: Diabetes mellitus type II, controlled On: :03 Request HGB A1C (12804)Indication: Diabetes mellitus type II, controlled On: :02 Request TSH (THYROID STIMULATING HORMONE) (69817)Indication: Acquired hypothyroidism On: :02 Request Metabolic Panel, Basic (51775)Indication: Hyponatremia On: 71-Mbj-142556:00 Request TSH (06713)Indication: Diabetes mellitus type II, controlled On: :48 Request Vitamin B-12 (cyanocobalamin) (62315)Indication: B12 deficiency On: :45 Request CBC WITH MANUAL DIFF (18390)Indication: B12 deficiency On: :45 Request T3, FREE (TRIDOTHYRONINE) (92839)Indication: Thyroid nodule On: :48 Request Comments: add to labs already drawn T4, FREE (THYROXINE) (35893)Indication: Thyroid nodule On: :47 Request Comments: add to labs already drawn Digoxin (68289)Indication: Cardiomyopathy On: :44 Request LIPID PANEL (79472)Indication: Mixed hyperlipidemia On: :43 Request TSH (03583)Indication: Acquired hypothyroidism On: :43 Request Vitamin D Hydroxy (65575)Indication: Vitamin D deficiency On: :43 Request WGQLE-KIRAMRQSXWO-IBWAR (79720)Indication: Fatty liver On: :42 Request VITAMIN B-12 (CYANOCOBALAMIN) (54513)Indication: Fatigue On: :42 Request URINALYSIS, W/ MICRO (45664)Indication: Diabetes mellitus type II, controlled On: :30 Request MICROALBUMIN: CREATININE RATIO (10129) AND (77064)Indication: Diabetes mellitus type II, controlled On: : Request CBC with auto diff (87147)Indication: Diabetes mellitus type II, controlled On: :29 Request METABOLIC PANEL, COMPREHENSIVE (50961)Indication: Diabetes mellitus type II, controlled On: :29 Request HGB A1C (62119)Indication: Diabetes mellitus type II, controlled On: 14-Nva-057328:29 Request HEPATIC FUNCTION PANEL (24349)Indication: Elevated liver enzymes On: 9-Imv-471826:38 Request Comments: do in hospital tuesday when get US Metabolic Panel, Comprehensive (09547)Indication: Epigastric pain On: 71-Wxp-593912:54 Request Sed Rate Erythrocyte (70090)Indication: Epigastric pain On: :54 Request CBC, Platelets & Auto Diff (30495)Indication: Epigastric pain On: :54 Request OVA & PARASITE DIR SMEAR (66033)Indication: Diarrhea On: :53 Request OCCULT BLOOD FECES SCREEN (58680)Indication: Diarrhea On: :53 Request LEUKOCYTE COUNT, FECAL (64643)Indication: Diarrhea On: :53 Request C-DIFFICILE, STOOL (26772)Indication: Diarrhea On: :53 Request GENESIS CULTURE-STOOL (91691)Indication: Diarrhea On: :53 Request Magnesium (46267)Indication: Fatigue On: 21-Wpn-629273:42 Request Vitamin B-12 (cyanocobalamin) (44026)Indication: Fatigue On: 89-Tgq-623437:41 Request MICROALBUMIN: CREATININE RATIO (61666) AND (55796)Indication: Diabetes mellitus type II, controlled On: 72-Rta-133256:40 Request LIPID PANEL (32949)Indication: Mixed hyperlipidemia On: 02-Jyx-206372:39 Request CBC W/AUTO DIFF WBC (36298)Indication: Fatty liver On: 12-Jvg-735263:30 Request METABOLIC PANEL, COMPREHENSIVE (83671)Indication: Fatty liver On: 70-Kvc-123975:30 Request Vitamin D Hydroxy (89923)Indication: Vitamin D deficiency On: 62-Bvu-847148:30 Request TSH (81495)Indication: Acquired hypothyroidism On: 41-Ysm-783586:30 Request Digoxin (63779)Indication: Cardiomyopathy On: 53-Ehr-322726:29 Request LIPASE (26096)Indication: Epigastric pain On: :28 Request AMYLASE (67251)Indication: Epigastric pain On: 73-Raa-618418:28 Request URINE GENESIS CULTURE-IDENTIFICATN (48095)Indication: Leukocytes in urine On: 39-Lth-734440:38 Request MICROALBUMIN: CREATININE RATIO (25295) AND (36574)Indication: Essential hypertension with goal blood pressure less than 130/80 On: :58 Request CBC W/AUTO DIFF WBC (36114)Indication: Essential hypertension with goal blood pressure less than 130/80 On: :58 Request METABOLIC PANEL, COMPREHENSIVE (64283)Indication: Essential hypertension with goal blood pressure less than 130/80 On: :58 Request KCRNU-QMSKCZRFOHE-EIJHZ (65839)Indication: Abnormal tumor markers On: :57 Request Vitamin D Hydroxy (02479)Indication: Vitamin D deficiency On: :09 Request LIPOPROTEIN, BLD, BY NMR (73601)Indication: Mixed hyperlipidemia On: :09 Request CBC W/AUTO DIFF WBC (08657)Indication: Diabetes mellitus type II, controlled On: :09 Request METABOLIC PANEL, COMPREHENSIVE (49941)Indication: Diabetes mellitus type II, controlled On: :09 Request Potassium Serum (91788)Indication: Hypopotassemia On: 45-Oon-585732:02 Request AAIXT-GOWOSHKGZHE-CECHG (99047)Indication: Fatty liver On: :57 Request MICROALBUMIN: CREATININE RATIO (01979) AND (53696)Indication: Essential hypertension with goal blood pressure less than 130/80 On: :45 Request CBC W/AUTO DIFF WBC (40616)Indication: Essential hypertension with goal blood pressure less than 130/80 On: :45 Request METABOLIC PANEL, COMPREHENSIVE (53020)Indication: Essential hypertension with goal blood pressure less than 130/80 On: :45 Request Vitamin D Hydroxy (66284)Indication: Vitamin D deficiency On: :45 Request TSH (24125)Indication: Acquired hypothyroidism On: :45 Request LIPID PANEL (67384)Indication: Mixed hyperlipidemia On: :45 Request CBC W/AUTO DIFF WBC (08606)Indication: Diabetes mellitus type II, controlled On: :28 Request DNOPP-IRFNOYFDTUA-UYZKY (05624)Indication: Fatty liver On: 61-Lyg-973046:03 Request METABOLIC PANEL, COMPREHENSIVE (11771)Indication: Mixed hyperlipidemia On: :55 Request LIPOPROTEIN, BLD, BY NMR (42412)Indication: Mixed hyperlipidemia On: :55 Request Metabolic Panel, Basic (15456)Indication: Hypopotassemia On: :55 Request Comments: 10 days CBC (AUTO) (13219)Indication: Uncontrolled type II diabetes mellitus On: : Request Vitamin D Hydroxy (59648)Indication: Vitamin D deficiency On: : Request MICROALBUMIN: CREATININE RATIO (33380) AND (18182)Indication: Uncontrolled type II diabetes mellitus On: 36-Tbb-175973:02 Request METABOLIC PANEL, COMPREHENSIVE (83750)Indication: Essential hypertension with goal blood pressure less than 130/80 On: 80-Hhp-167875:02 Request FMLLD-MHFSMCYUDOM-PPIUX (09513)Indication: Fatty liver On: : Request LIPID PANEL (35762)Indication: Mixed hyperlipidemia On: 21-Xua-588569: Request TSH (59025)Indication: Thyroid nodule On: : Request CBC W/AUTO DIFF WBC (63219)Indication: Uncontrolled type II diabetes mellitus On: :47 Request METABOLIC PANEL, COMPREHENSIVE (98808)Indication: Uncontrolled type II diabetes mellitus On: :47 Request LIPID PANEL (03658)Indication: Mixed hyperlipidemia On: :47 Request Vitamin D Hydroxy (38771)Indication: Vitamin D deficiency On: 85-Lxi-368838:47 Request ISPFS-LVEQBTJEQBR-SWHTJ (27033)Indication: Fatty liver On: :27 Request CBC W/AUTO DIFF WBC ([id number])Indication: Uncontrolled type II diabetes mellitus On: :26 Request LIPID PANEL ([id number])Indication: Mixed hyperlipidemia On: :25 Request MICROALBUMIN: CREATININE RATIO ([id number]) AND ([id number])Indication: Uncontrolled type II diabetes mellitus On: :25 Request TSH ([id number])Indication: Acquired hypothyroidism On: :25 Request METABOLIC PANEL, COMPREHENSIVE ([id number])Indication: Essential hypertension with goal blood pressure less than 130/80 On: :25 Request Vitamin D Hydroxy ([id number])Indication: Vitamin D deficiency On: :25 Request CALCIFEDIOL ([id number])Indication: Vitamin D deficiency On: 25-Qfw-185288:44 Request Comments: to be done Jun 2015 after done with ergocalciferol URINE GENESIS CULTURE (NITA COL COUNT) ([id number])Indication: UTI (lower urinary tract infection) On: 0-Iab-081294:22 Request LIPID PANEL ([id number])Indication: Mixed hyperlipidemia On: 5-Inl-238067:15 Request CBC W/AUTO DIFF WBC ([id number])Indication: Uncontrolled type II diabetes mellitus On: 6-Cqg-866506:14 Request METABOLIC PANEL, COMPREHENSIVE ([id number])Indication: Uncontrolled type II diabetes mellitus On: 8-Pyg-742286:14 Request TSH ([id number])Indication: Acquired hypothyroidism On: 2-Dcs-107886:14 Request NLUFO-YZEBQNPCNOP-YVUBK ([id number])Indication: Fatty liver On: 8-Lzc-608581:14 Request CBC, Platelets & Auto Diff ([id number])Indication: HX, PERSONAL, MALIGNANCY, LYMPHATIC NEC On: 26-Cyx-70239:07 Request CBC WITH MANUAL DIFF ([id number])Indication: Abnormal glucose tolerance test On: :33 Request MICROALBUMIN: CREATININE RATIO ([id number]) AND ([id number])Indication: Abnormal glucose tolerance test On: :33 Request LIPID PANEL ([id number])Indication: Mixed hyperlipidemia On: :31 Request METABOLIC PANEL, COMPREHENSIVE (31022)Indication: Abnormal glucose tolerance test On: :31 Request URINE GENESIS CULTURE-NITA COL COUNT ([id number])Indication: Dysuria On: 08-Krw-341400:03 Request RETICULOCYTE COUNT ([id number])Indication: Anemia On: :37 Request Iron ([id number])Indication: Anemia On: :37 Request Ferritin (83305)Indication: Anemia On: :37 Request CBC (Auto) ([id number])Indication: Anemia On: :37 Request CBC, Platelets & Auto Diff ([id number])Indication: Fever On: :03 Request Metabolic Panel, Comprehensive (12804)Indication: Fever On: :03 Request HgA1C , Office (15094)Indication: Abnormal glucose tolerance test On: 92-Mmi-56082:55 Request CBC WITH MANUAL DIFF ([id number])Indication: Abnormal glucose tolerance test On: :53 Request METABOLIC PANEL, COMPREHENSIVE (54582)Indication: Abnormal glucose tolerance test On: :53 Request LIPID PANEL (39993)Indication: Mixed hyperlipidemia On: :53 Request CHPYU-SGTJDMARMZX-XIMFA ([id number])Indication: Fatty liver On: :53 Request PTT (Activated Partial Thromboplastin Time) ([id number])Indication: Fatty liver On: :53 Request PT (Prothrobim Time) ([id number])Indication: Fatty liver On: :53 Request MICROALBUMIN: CREATININE RATIO ([id number]) AND ([id number])Indication: Abnormal glucose tolerance test On: 74-Oot-143917:49 Request Anti-TPO Antibody (39904)Indication: Acquired hypothyroidism On: 77-Udm-694641:14 Request Comments: 1 month TSH ([id number])Indication: Acquired hypothyroidism On: 27-Mne-004223:13 Request Comments: 1 month T4, FREE (THYROXINE) ([id number])Indication: Acquired hypothyroidism On: :13 Request Comments: 1 month T3, FREE (TRIDOTHYRONINE) ([id number])Indication: Acquired hypothyroidism On: 23-Ewd-275690:13 Request Comments: 1 month CBC WITH MANUAL DIFF ([id number])Indication: Abnormal glucose tolerance test On: :38 Request METABOLIC PANEL, COMPREHENSIVE ([id number])Indication: Abnormal glucose tolerance test On: :38 Request LIPID PANEL ([id number])Indication: Mixed hyperlipidemia On: :38 Request MICROALBUMIN: CREATININE RATIO ([id number]) AND ([id number])Indication: Abnormal glucose tolerance test On: 46-Tbx-608803:56 Request CBC WITH MANUAL DIFF ([id number])Indication: Elevated LFTs On: 10-Tve-050926:56 Request METABOLIC PANEL, COMPREHENSIVE ([id number])Indication: Elevated LFTs On: 74-Fqe-302276:56 Request LIPID PANEL ([id number])Indication: Mixed hyperlipidemia On: 75-Otg-056347:56 Request TSH ([id number])Indication: Acquired hypothyroidism On: 43-Qxw-572783:56 Request CBC WITH MANUAL DIFF ([id number])Indication: Essential hypertension with goal blood pressure less than 130/80 On: :34 Request TSH ([id number])Indication: Acquired hypothyroidism On: :34 Request METABOLIC PANEL, COMPREHENSIVE ([id number])Indication: Fatty liver On: :33 Request LIPID PANEL ([id number])Indication: Mixed hyperlipidemia On: :33 Request MICROALBUMIN: CREATININE RATIO ([id number]) AND ([id number])Indication: Uncontrolled type II diabetes mellitus On: :46 Request TSH ([id number])Indication: Acquired hypothyroidism On: :46 Request LIPID PANEL ([id number])Indication: Mixed hyperlipidemia On: 09-Tmc-69989:45 Request METABOLIC PANEL, COMPREHENSIVE ([id number])Indication: Elevated LFTs On: :45 Request HgA1C , Office ([id number])Indication: Uncontrolled type II diabetes mellitus On: :28 Request URINE GENESIS CULTURE-NITA COL COUNT ([id number])Indication: Cystitis, acute On: :43 Request URINE GENESIS CULTURE-IDENTIFICATN ([id number])Indication: Dysuria On: :10 Request CBC WITH MANUAL DIFF ([id number])Indication: Headache On: 75-Tin-848425:56 Request METABOLIC PANEL, COMPREHENSIVE ([id number])Indication: Headache On: 77-Bhm-833766:56 Request LIPID PANEL ([id number])Indication: Mixed hyperlipidemia On: 22-Aks-742154:56 Request TSH ([id number])Indication: Acquired hypothyroidism On: 65-Etd-632016:56 Request METABOLIC PANEL, COMPREHENSIVE ([id number])Indication: Uncontrolled type II diabetes mellitus On: 81-Urh-900139:28 Request HEPATIC FUNCTION PANEL ([id number])Indication: Mixed hyperlipidemia On: :28 Request LIPID PANEL ([id number])Indication: Mixed hyperlipidemia On: : Request LIPID PANEL ([id number])Indication: Mixed hyperlipidemia On: :39 Request MICROALBUMIN: CREATININE RATIO ([id number]) AND ([id number])Indication: Uncontrolled type II diabetes mellitus On: :39 Request CBC WITH MANUAL DIFF ([id number])Indication: Essential hypertension with goal blood pressure less than 130/80 On: :39 Request METABOLIC PANEL, COMPREHENSIVE ([id number])Indication: Elevated LFTs On: :39 Request TSH ([id number])Indication: Acquired hypothyroidism On: :36 Request TSH ([id number])Indication: Thyroid nodule On: :20 Request METABOLIC PANEL, COMPREHENSIVE ([id number])Indication: Elevated LFTs On: :19 Request LIPID PANEL ([id number])Indication: Mixed hyperlipidemia On: :19 Request C-REACTIVE PROTEIN ([id number])Indication: Abnormal findings on diagnostic imaging of other specified body structures On: 36-Jms-995478: Request SED RATE ERYTHROCYTE ([id number])Indication: Abnormal findings on diagnostic imaging of other specified body structures On: 14-Umy-495033: Request LDH (LD) (LACTATE DEHYDROGENASE) (98395)Indication: Abnormal findings on diagnostic imaging of other specified body structures On: 66-Gza-236507: Request Urine Protein Electrophoresis (UPEP) ([id number])Indication: Abnormal findings on diagnostic imaging of other specified body structures On: 10-Rbz-260144: Request Serum Protein Electrophoresis (SPEP) ([id number])Indication: Abnormal findings on diagnostic imaging of other specified body structures On: 07-Hnp-234098: Request METABOLIC PANEL, COMPREHENSIVE ([id number])Indication: Diabetes mellitus type II, controlled On: :19 Request LIPID PANEL ([id number])Indication: Mixed hyperlipidemia On: : Request URINE GENESIS CULTURE-NITA COL COUNT ([id number])Indication: Dysuria On: 07-Fph-957175:58 Request HEPATIC FUNCTION PANEL (53353)Indication: Elevated LFTs On: :18 Request LIPID PANEL ([id number])Indication: Mixed hyperlipidemia On: 14-Sns-503251:17 Request MICROALBUMIN: CREATININE RATIO ([id number]) AND ([id number])Indication: Uncontrolled type II diabetes mellitus On: 5-Sfw-562446:47 Request CBC WITH MANUAL DIFF ([id number])Indication: Uncontrolled type II diabetes mellitus On: 0-Uno-229478:47 Request METABOLIC PANEL, COMPREHENSIVE ([id number])Indication: Uncontrolled type II diabetes mellitus On: 2-Nqs-654585:47 Request HEPATIC FUNCTION PANEL ([id number])Indication: Elevated LFTs On: 8-Csr-199020:45 Request LIPID PANEL ([id number])Indication: Mixed hyperlipidemia On: 9-Rnq-626400:44 Request HEPATIC FUNCTION PANEL ([id number])Indication: Fatty liver On: 3-Jex-661348:30 Request LIPID PANEL ([id number])Indication: Mixed hyperlipidemia On: 9-Tsi-660592:30 Request URINE GENESIS CULTURE (NITA COL COUNT) ([id number])Indication: Low back pain potentially associated with radiculopathy On: 81-Llv-770050:03 Request MICROALBUMIN: CREATININE RATIO ([id number]) AND ([id number])Indication: Dysuria On: 06-Tzy-318216:05 Request LIPID PANEL ([id number])Indication: Dysuria On: 31-Izx-083694:05 Request TSH ([id number])Indication: Dysuria On: 88-Trj-121131:05 Request METABOLIC PANEL, COMPREHENSIVE ([id number])Indication: Dysuria On: 70-Wnp-703993:04 Request CBC WITH MANUAL DIFF ([id number])Indication: Dysuria On: 57-Rfd-837416:04 Request URINE GENESIS CULTURE-NITA COL COUNT ([id number])Indication: Dysuria On: 09-Psb-650989:45 Request URINE GENESIS CULTURE (NITA COL COUNT) ([id number])Indication: Dysuria On: 14-Nfl-214160:17 Request METABOLIC PANEL, COMPREHENSIVE ([id number])Indication: Fatty liver On: 75-Ocy-01923:58 Request Magnesium ([id number])Indication: Palpitations On: 55-Mbb-85664:51 Request TSH ([id number])Indication: Palpitations On: 56-Hte-29500:51 Request METABOLIC PANEL, COMPREHENSIVE ([id number])Indication: Palpitations On: 02-Hnh-69992:51 Request CBC WITH MANUAL DIFF ([id number])Indication: Palpitations On: 11-Ooz-65978:51 Request GGT (Gamma Glutamyl Transferase) ([id number])Indication: Elevated LFTs On: 45-Bhi-402514:16 Request HEPATIC FUNCTION PANEL ([id number])Indication: Elevated LFTs On: 68-Lxe-653931:16 Request VITAMIN B-12 (CYANOCOBALAMIN) ([id number])Indication: Fatigue On: 30-Fsh-40402:23 Request MICROALBUMIN URINE QUANT ([id number])Indication: Diabetes mellitus type II, controlled On: :22 Request TSH ([id number])Indication: Fatigue On: :22 Request CBC WITH MANUAL DIFF ([id number])Indication: Diabetes mellitus type II, controlled On: :22 Request METABOLIC PANEL, COMPREHENSIVE ([id number])Indication: Diabetes mellitus type II, controlled On: :22 Request LIPID PANEL ([id number])Indication: Mixed hyperlipidemia On: :22 Request HEPATIC FUNCTION PANEL ([id number])Indication: Mixed hyperlipidemia On: 44-Jxu-558421:48 Request LIPID PANEL ([id number])Indication: Mixed hyperlipidemia On: 75-Zlp-637546:48 Request Comments: in 3 mos Planned Encounters Medical; [facility] 1 Month FU - On: 12-Sep-2018 8:00 [facility] Fast DO, Sangeetha A Fast DO, Sangeetha A Medical; Overnight Pulse Ox Placement - On: 20-Sep-2018 13:00 [facility] Visit, Nurse Planned Procedures Echo CompleteBy: Fast DO, Sangeetha A On: 04-Sep-2018 Intent Fast DO, Sangeetha A CTA CHEST W/W/O CONTRAST ([id number])By: On: 04-Sep-2018 Intent Fast DO, Sangeetha A Fast DO, Sangeetha A Overnight Pulse OX ([id number])By: Fast On: 04-Sep-2018 Intent DO, Sangeetha A Fast DO, Sangeetha A Spirometry ([id number])By: Fast DO, On: 04-Sep-2018 Intent Sangeetha A Fast DO, Sangeetha A Comments: difficutly with insp effort severe restriction ELECTROCARDIOGRAM, COMPLETE (ECG) On: 04-Sep-2018 Intent ([id number])By: Fast DO, Sangeetha A Fast DO, Comments: ekg- 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 and possible recent anterior wall mi- nonspecific st depression Sangeetha A Flu Vaccine (Quadrivalent) 03445Ky: On: 21-Jul-2018 Intent Fast DO, Sangeetha A Fast DO, Sangeetha A SCREENING DIGITAL TOMOSYNTHESIS OF On: 21-Jul-2018 Intent BREAST ([id number])By: Fast DO, Sangeetha A Fast DO, Sangeetha A B 12 Injection, 1000 mcg (J3420)By: On: 31-May-2018 Intent Fast DO, Sangeetha A Fast DO, Sangeetha A Comments: Lot#[id number] EXP:[id number] given:left deltoid Given By: clarita albright ABN signed CT - Abdomen (IV Contrast Needed)By: On: 31-May-2018 Intent Fast DO, Sangeetha A Fast DO, Sangeetha A Doppler Ultrasound OtherBy: Fast DO, On: 19-May-2018 Intent Sangeetha A Fast DO, Sangeetha A Comments: left arm ULTRASOUND OF LIVER ([id number])By: On: 24-Feb-2018 Intent Jennifer Rios MD PFT - CompleteBy: Fast DO, Sangeetha A On: 21-Oct-2017 Intent Fast DO, Sangeetha A Comments: at [facility] SCREENING DIGITAL TOMOSYNTHESIS OF On: 21-Oct-2017 Intent BREAST ([id number])By: Fast DO, Sangeetha A Comments: end of oct Fast DO, Sangeetha A EsophagramBy: Fast DO, Sangeetha A Fast On: 21-Oct-2017 Intent DO, Sangeetha A Comments: with 12 mm tablet ELECTROCARDIOGRAM, COMPLETE (ECG) On: 21-Oct-2017 Intent ([id number])By: Fast DO, Sangeetha A Fast DO, Sangeetha A Flu Vaccine (Quadrivalent) 43941Hr: On: 07-Jun-2017 Intent Fast DO, Sangeetha A [...] DO, Sangeetha A DEXA SCAN AXIAL SKELETON ([id number])By: On: 16-Aug-2016 Intent Fast DO, Sangeetha A Fast DO, Sangeetha A MAMMOGRAM, SCREENING, BOTH BREAST On: 16-Aug-2016 Intent ([id number])By: Fast DO, Sangeetha A Fast DO, Sangeetha A ELECTROCARDIOGRAM, COMPLETE (ECG) On: 16-Aug-2016 Intent ([id number])By: Fast DO, Sangeetha A Fast DO, Sangeetha A Flu Vaccine (Quadrivalent) 86745Rb: On: 16-Aug-2016 Intent Fast DO, Sangeetha A Fast DO, Sangeetha A Comments: FLUlot: [id number]:02/09site:Lt deltoidroute:IMdose:.5ml[facility] [place] ADMINIST[facility]ATION OF INFLUENZA VIRUS On: 16-Aug-2016 Intent VACCINE (G0008)By: Fast DO, Sangeetha A Fast DO, Sangeetha A Ultrasound - ThyroidBy: Fast DO, On: 10-Nov-2015 Intent Sangeetha A Fast DO, Sangeetha A Ultrasound - LiverBy: Fast DO, Sangeetha On: 10-Nov-2015 Intent A Fast DO, Sangeetha A Flu Vaccine (Quadrivalent) 73003Pp: On: 08-Aug-2015 Intent Fast DO, Sangeetha A Fast DO, Sangeetha A Comments: Lot #[id number]-L dltd, IMDose prefilled syringegiven by:Romero, AMRITANVIS and ABN signed MAMMOGRAM, SCREENING, BOTH BREAST On: 08-Aug-2015 Intent ([id number])By: Fast DO, Sangeetha A Fast DO, Sangeetha A Ultrasound - ThyroidBy: Fast DO, On: 08-Aug-2015 Intent Sangeetha A Fast DO, Sangeetha A Ultrasound - LiverBy: Fast DO, Sangeetha On: 08-Aug-2015 Intent A Fast DO, Sangeetha A ADMINISTRATION OF PNEUMOCOCCAL On: 01-Nov-2014 Intent VACCINE (G0009)By: Fast DO, Sangeetha A Fast DO, Sangeetha A PNEUM VAC ADLT/IMUMNOSPR, SBC/INTRM On: 01-Nov-2014 Intent (61176)By: Fast DO, Sangeetha A Fast DO, Comments: Lot:[id number]:02/29/16Dose:0.5mgRoute:imSite:mk Donis By:BATSHEVA Ring A Ultrasound - LiverBy: Tavon DO, Sangeetha On: 05-Jul-2014 Intent A Fast DO, Sangeetha A BILATERAL MAMMOGRAMS (85483)By: Tavon On: 05-Jul-2014 Intent DO, Sangeetha A Fast DO, Sangeetha A Ultrasound - ThyroidBy: Tavon DO, On: 05-Jul-2014 Intent Sangeetha A Fast DO, Sangeetha A ADMINISTRATION OF INFLUENZA VIRUS On: 05-Jul-2014 Intent VACCINE (G0008)By: Arpan Irvin DOa A Comments: Influenzalot:[id number]:03/25/2015dose:0.5mLRoute: IMlocation:Lois donis by:marika Fast DO, Sangeetha A FLU VAC, SPLIT, >3 YEARS, INTRAMUSC On: 05-Jul-2014 Intent ([id number])By: Sangeetha Irvin DO Fast DO, Sangeetha A INFUSION, NORMAL SALINE SOLUTION , On: 15-Apr-2014 Intent 250 CC (J7050)By: Angelina Winn CNP Rocephon Injection, 1 Gm (J0696)By: On: 15-Apr-2014 Intent Angelina Winn CNP Comments: Rocephin 1gmLot #[id number]. [id number] in R hand x 1 stick with [...] Brain/Head (IV Contrast On: 08-Jan-2014 Intent Needed)By: Sangeetha Irvin DO Fast DO, Sangeetha A ADMINISTRATION OF INFLUENZA VIRUS On: 27-Jul-2013 Intent VACCINE (G0008)By: Tavon DAVIS, Sangeetha A Fast DO, Sangeetha A FLU VAC, SPLIT, >3 YEARS, INTRAMUSC On: 27-Jul-2013 Intent (16753)By: Fast DO, Sangeetha A Fast DO, Sangeetha A Eprescribed prescriptions (G8553)By: On: 04-Jun-2013 Intent Delisa Melendez LPN SPECIMEN HANDLING/TRANSPORT On: 04-Jun-2013 Intent (49603)By: Delisa Melendez LPN INFUSION, NORMAL SALINE SOLUTION , On: 15-Feb-2013 Intent 1000 CC (Special Coverage Comments: 500 cc Instructions Apply. See MCM: 2049) (J7030)By: Jennifer Rios MD HYDRATION IV INFUSION, INIT On: 15-Feb-2013 Intent ([id number])By: Jennifer Rios MD Ultrasound - ThyroidBy: Fast DO, On: 19-Jan-2013 Intent Sangeetha A Fast DO, Sangeetha A MAMMOGRAM, SCREENING, BOTH BREASTS On: 19-Jan-2013 Intent (53929)By: Fast DO, Sangeetha A Fast DO, Comments: due in january Sangeetha A Eprescribed prescriptions (G8553)By: On: 19-Jan-2013 Intent Isabella Grigsby Pulse Oximetry (12605)By: Seb, On: 29-Sep-2012 Intent Isabella Comments: 98% Eprescribed prescriptions (G8553)By: On: 29-Sep-2012 Intent Isabella Grigsby Ultrasound - ThyroidBy: Fast DO, On: 15-Sep-2012 Intent Sangeetha A Fast DO, Sangeetha A Eprescribed prescriptions (G8553)By: On: 15-Sep-2012 Intent Isabella Grigsby Eprescribed prescriptions (G8553)By: On: 12-May-2012 Intent Fast DO, Sangeetha A Fast DO, Sangeetha A Eprescribed prescriptions (G8553)By: On: 12-May-2012 Intent Isaeblla Grigsby MAMMOGRAM, SCREENING, BOTH BREASTS On: 24-Jan-2012 Intent (57769)By: Fast DO, Sangeetha A Fast DO, Sangeetha A TDAP VACCINE >7 IM (77651)By: Fast On: 04-Oct-2011 Intent DO, Sangeetha A Fast DO, Sangeetha A Comments: Lot:[id number]:08/12/13Amt:prefilledRoute:IMSite:right deltGiven By: NATALEE Spence Aerosol Treatment (59802)By: Blanca On: 26-Aug-2011 Intent Jennifer KING Pulse Oximetry (45804)By: Blanca On: 26-Aug-2011 Intent Jennifer KING SPECIMEN HANDLING/TRANSPORT On: 23-Jul-2011 Intent (78561)By: Delisa Melendez LPN FLU VAC, SPLIT, >3 YEARS, INTRAMUSC On: 05-Jul-2011 Intent (17180)By: Isabella Grigsby Comments: Lot #[id number]/20/12Site-left deltoidgiven by: Lisa Bello LPN Ultrasound - ThyroidBy: Fast DO, On: 05-Jul-2011 Intent Sangeetha A Fast DO, Sangeetha A MAMMOGRAM, SCREENING, BOTH BREASTS On: 05-Jul-2011 Intent (37604)By: Fast DO, Sangeetha A Fast DO, Sangeetha A ADMINISTRATION OF INFLUENZA VIRUS On: 05-Jul-2011 Intent VACCINE (G0008)By: Isabella Grigsby Eprescribed prescriptions (G8553)By: On: 04-Jun-[address] - Brain/HeadBy: Fast DO, Sangeetha A On: 07-Oct-2010 Intent Fast DO, Sangeetha A Comments: with and without contrast MAMMOGRAM, SCREENING, BOTH BREASTS On: 26-Jun-2010 Intent ([id number])By: Fast DO, Sangeetha A Fast DO, Sangeetha A ADMINISTRATION OF INFLUENZA VIRUS On: 26-Jun-2010 Intent VACCINE (G0008)By: Fast DO, Sangeetha A Fast DO, Sangeetha A FLU VAC, SPLIT, >3 YEARS, INTRAMUSC On: 26-Jun-2010 Intent (43348)By: Fast DO, Sangeetha A Fast DO, Comments: Lot:[id number]:12/2010Dose:0.5mlRoute:IMSite:Left DeltoidGiven by: HEIDI Alberto Ultrasound - ThyroidBy: Fast DO, On: 07-Jan-2010 Intent Sangeetha A Fast DO, Sangeetha A CT - Spine/CervicalBy: Fast DO, On: 15-Dec-2009 Intent Sangeetha A Fast DO, Sangeetha A Comments: 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 -- need to rule out Pulse Oximetry (05932)By: Fast DO, On: 09-Jul-2009 Intent Sangeetha A Fast DO, Sangeetha A Spirometry (46171)By: Fast DO, On: 10-Jul-2009 Intent Sangeetha A Fast DO, Sangeetha A Comments: good effort and curve- mild restriciton Radiology - Chest- PA and LatBy: On: 09-Jul-2009 Intent Fast DO, Sangeetha A Fast DO, Sangeetha A Pulse Oximetry ([id number])By: Fast DO, On: 10-Jul-2009 Intent Sangeetha A Fast DO, Sangeetha A Comments: 98 FLU VAC, SPLIT, >3 YEARS, INTRAMUSC On: 09-Jul-2009 Intent (63185)By: Isabella Grigsby Comments: Lot #[id number]-right deltoidDose0.5mlgiven by Juventino Nye LPN IMMUNIZ ADMNIN, 1 VAC, SNGL/COMBO On: 09-Jul-2009 Intent (39483)By: Isabella Grigsby EKG (51463)By: Fast DO, Sangeetha A On: 10-Oct-2008 Intent [...] Sangeetha On: 10-Oct-2008 Intent A Fast DO, Sagneetha A Comments: 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- please do archie and also do in open mri- IMMUNIZ ADMNIN, 1 VAC, SNGL/COMBO On: 10-Jul-2008 Intent (53473)By: Fast DO, Sangeetha A Fast DO, Sangeetha A FLU VAC, SPLIT, >3 YEARS, INTRAMUSC On: 10-Jul-2008 Intent ([id number])By: Fast DO, Sangeetha A Fast DO, Comments: injection given in left deltoid, pt tolerated welllot # [id number]/ Sangeetha A Holter Monitor 24 hrsBy: Fast DO, On: 10-Jul-2008 Intent Sangeetha A Fast DO, Sangeetha A EKG (69285)By: Marlene Reddy On: 10-Jul-2008 Intent Comments: ekg [...] Instructions Indication: Abnormal glucose tolerance test Encounters Phone Encounter On: 08-Sep-2018 9:59 Encounter Diagnosis: Nocturnal hypoxia, CHF (congestive heart failure) End: 08-Sep-2018 10:21 [facility] Office Visit On: 04-Sep-2018 [...] swelling- had little ham not much for thanksgi - she did get better last time with diuretic- taking 2 lasix am 1 at [facility]- no chest pain some palps- [facility]: BMI 31.0-31.9,adult, Nonsmoker, SOB (shortness [...] using tylenol and will go back to [place] if need be for shot-sugar fine-n foot [...] for Follow up hospital: so mom alyssa t and apparently prior to her hospitalization [...] off metformin and lisinopril andthen went to [place] for couple weeks then had multiple falls sent back to hospital and transferred to [facility] there for few weeks then to [facility] had lots of pt- and doing [...] fasting blood sugars : (was lower before [place] and 139 last week fasting in the [...] anxiety and depression. Note for Physical exam: [facility] Wellness Physical- she is down 107 pounds [...] from Need for immunizati on against influenza), [facility], Encounter for screening mammogram for breast [...] Reason for hospitalization abdominal pain (Went to [facility] on 02/28/15). Hospitalization details include: abnormal [...] previously evaluated by a primary physician (at [facility]- Dr Reyes ). Presentation included lid swelling.Encounter [...] is helping her mood- has followup in [place] may 04 - her weight down 20 [...] sees heart failure doctor next week at [facility] - -- mood ebs and flows- sees [...] all the problems -goes back to [facility] on tuesday and psych in 2 weeksEncounter [...] Has been referred to arthritis clinic per basali- - her psych meds changed to lamic favian clonazepam and off pristiq and seroquel- prices better- also on celexa- her mood is is reasonable- bp good and weight coming down down 65 piunds in last 5 years and going to weight wat[facility]- and exe rcising- she is still doing counseling - she is seeing basali for back issues- sees rosetta tue- she [...] or less). Note for Follow up for chromium plater vanda medical issues: Pt's insurance wont cover [...] wake in am- saw gilbert last month- joerichy is adfressing the breathing issues- last ef [...] with no complaints (Pt states sometimes the andre still makes her sick, but as long [...] pounds with her cancer- she saw a high school tutor [facility] for her tachycardia and they told [...]
--- OUTSIDE RECORDS SUMMARY | 2018-10-21 23:00 | XMS RPT_ITS | Continuity of Care Document ---
:1965 Author Organization [facility] Address [facility] [address] [place] [address] Phone Care Team Providers Name Role Phone [...] Quantity: 30 {QS} Refills: 11 Ordered:08-Sep-2018 Long HIDE SALTER, Amelia L Start : 08-Sep-2018 Active Comments:Home [...] Quantity: 10 {Tablet} Refills: 0 Ordered:23-Feb-2018 Long HIDE SALTER, Amelia L Start : 23-Feb-2018 Active AMITIZA, [...] Quantity: 30 {Tablet} Refills: 0 Ordered:05-Jul-2011 Al HIDE SALTERDelisa Chaidez Start : 05-Jul-2011 End : 04-Aug-2011 [...] : 25-Jan-2018 End : 19-May-2018 Inactive ERGOCALCIFEROL, 14889NVDW (Oral Capsule) 1 (one) Capsule Capsule twice [...] : 23-Jul-2011 End : 02-Aug-2011 Inactive MAXITROL, 3.5-28320-9.1 (Ophthalmic Ointment) apply to eye lids as [...] hs (50 MG) Inactive Comments:Dr. Hankins NYSTATIN, 141373OQEF/ML (Mouth/Throat Suspension) 5cc Suspension 5 times daily [...] Quantity: 30 {Tablet} Refills: 0 Ordered:19-May-2018 Long HIDE SALTERAmelia L Start : 12-May-2012 End : 19-May-2018 Discontinued Comments:This order discontinued per [facility]. ZOFRAN ODT, 4MG (Oral Tablet Dispersible) qd prn nausea (4 MG) End : 08-Aug-2015 Discontinued Comments:[facility] Allergies and Adverse Reactions Name Dates [...] w/ Contrast Result: Comments: See Note; NOTES: [facility] Cardiovascular Services [address] [place] [address] Echo Complete W/ Contrast 09/06/18 1002 MR#: [id number] Acct: [id number] Name: IFEOMA DÍAZ Rep #: [id number] : 1965 53 From: Boone Ch MD Attending Dr: Sangeetha Irvin DO Status: REG CLI Ordering Dr: Sangeetha Irvin DO Date: 09/06/18 Location: [facility] Sex: F C Admitted: Reason F or [...] Dictated: 09/06/18 1002 Date Transcribed: 09/06/18 1534 Research Assistant: Signed 04-Sep-2018 CTA Chest W/WO Contrast Result: Comments: See Note; NOTES: [facility] Imaging Services [address] [place] [address] CTA Chest W/WO Contrast MR#: [id number] Acct: [id number] Name: IFEOMA ASHRAF Rep #: : 1965 F 53 From: Ziggy Santos MD PCP: Sangeetha Irvin DO Status: REG CLI Study: CTA Chest W/WO Contrast Date of Exam: 09/04/18 Exam# [id number] Ordering Dr: Sangeetha Irvin DO STUDY: CTA [...] Service support , CC: Sangeetha Irvin DO Research Assistant: Signed 14-Jul-2018 Chest PA and Lateral Result: Comments: See Note; NOTES: [facility] Imaging Services [address] [place] [address] Chest PA and Lateral MR#: [id number] Acct: [id number] Name: IFEOMA ASHRAF Rep #: [id number] : 1965 F 53 From: Dimitris Valderrama DO PCP: Sangeetha Irvin DO Status: REG CLI Study: Chest PA and Lateral Date of Exam: 07/14/18 Exam# [id number] Ordering Dr: Oscar Todd STRE[address] ROLLER ENGINEER-C STUDY: X-RAY CHEST REASON FOR EXAM: Female, [...] Dimitris Valderrama DO at 8:47 EDT Tel [phone], Service support , CC: NUNU Todd; Sangeetha Irvin DO Research Assistant: Signed 10-Jun-2018 Pacemaker Check Result: Comments: See Note; NOTES: [facility] [address] [place] [address] Pacemaker Check Date of Service: 06/09/18 0909 MR#: [id number] Acct: [id number] Name: IFEOMA ASHRAF Rep #: [id number] : 1965 From: Danica Pickering Age/Sex: 53/F Location[facility] Status: Signed Billing Codes ICD Device Billing: ICD Dev Prog Eval, Single 06/09/18 0913 <Elec tronically signed by Danica Pickering > Date Danica Pickering 06/10/18 1406<Electronically signed by Boone Ch MD> Junior Signat ure: Date (if applicable) Boone Ch MD CC: 08-Jun-2018 Cardiology Visit Report Result: Comments: See Note; NOTES: [facility] [address] [place] [address] OFFICE VISIT Date of Service: 05/31/18 MR#: [id number] Acct: [id number] Name: IFEOMA ASHRAF Rep #: [id number] : 1965 Provider: NUNU Todd Age/Sex: 53/F Location: [facility] Status: Signed with Addenda ADDENDUM by NUNU Todd on 06/01/18 at 0746 Addendum entered and electronic ally signed by LUPE Black 06/01/18 07:46: Patient's outside records from [facility] admission from 04/07/2018 to 04/27/2018 were [...] ultimately discharged home with requested follow-up with [facility] neurology or local neurolo gist in approximately [...] defibrillator (ICD) Z95.810 Generator change 11/13 @ [facility] LUPE Chapman Pacemaker check in February [...] prior to saving. Follow Up 6 Months (GLOVE PRESSER) 05/31/18 (GIUSEPPE) 06/01/18 0747 <Electronically signed by [...] ral regurgitation and tricuspid regurgitation. She presented [facility] on March 08, 2018 after being found unresponsive in her bathroom. During this hospitalization she was found to have an acute left axillary and left brachial vein DVT and was started on Eliquis. She presented to [facility] emergency department in March 2018 for altered mental status. Her CT scan prior to ER visit showed possible hygroma versus subacute resolving subdural hematoma. She was transferred to [facility] for further evaluation. These records are [...] 05/31/18 Pulse Rate 100 Intake Visit Reasons: [facility] to [facility] to [facility] to [place] Allergies amitriptyline Adverse Reaction (Severe, Verified 05/31/18 [...] rter-defibrillator (ICD) Z95.810 Generator change 11/13 @ [facility] LUPE Chapman Pacemaker check in February [...] prior to saving. Follow Up 6 Months (GLOVE PRESSER) 05/31/18 (GIUSEPPE) Coding Level of Care Code [...] See Note; NOTES: [facility] [address] [place] [address] [place] [address] OFFICE VISIT Date of Service: 06/05/18 1314 MR#: [id number] Acct: [id number] Name: TYLOR ASHRAF Dm Pulido Rep #: [id number] : 1965 From: Simeon Gresham MD Age/Sex: 53/F Location: [facility] Status: Signed Subjective - Date of Service Date of Service:: 06/05/18 - Chief Complaint Follow up DLBCL - His tory of Present Illness 53-year-old woman was diagnosed with non-Hodgkin's lymphoma, diffuse large B cell, stage IV of the uterine cervix with CLINICAL RESEARCH TECHNICIAN/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 She had [...] stem cell transplant in February 2007 at [facility] with complete remission. She is on observation, [...] Chronic Code Visit Office Visits / Consults: 25318 OV L3 Est 1325 <Electronically signed by Simeon Gresham MD> Date Simeon Gresham MD Cosigner Signature: Date (if applicable) CC: 26-May-2018 Venous Duplex Upper Extremity Result: Comments: See Note; NOTES: [facility] Cardiovascular Services [address] [place] [address] Venous Duplex US, Unilateral 05/25/18 0903 MR#: [id number] Acct: [id number] Name: IFEOMA SILVA Rep #: [id number] : 1965 53 From: Juanjo Russo MD Attending Dr: Sangeetha Irvin DO Status: REG CLI Ordering Dr: Sangeetha Irvin DO Date: 05/25/18 Location: [facility] Sex: F C Admitted: Lois pedraza For [...] Date Dictated: 05/25/18902 Date Transcribed: 05/26/18 163 Research Assistant: Signed 06-Apr-2018 Chest 1 View (Portable) Result: Comments: See Note; NOTES: [facility] Imaging Services [address] [place] [address] Chest 1 View (Portable) MR#: [id number] Acct: [id number] Name: IFEOMA ASHRAF Rep #: [id number] : 1965 F 53 From: [facility] PCP: Sangeetha Irvin DO Status: PRE ER Study: Chest 1 View (Portable) Date of Exam: 04/06/18 Exam# [id number] Ordering Dr: Dejuan Bacon MD STUDY: X-RAY [...] , CC: Sangeetha Irvin DO; Dejuan Bacon Research Assistant: Signed 05-Apr-2018 Brain/Head without Contrast Result: Comments: See Note; NOTES: [facility] Imaging Services [address] [place] [address] Brain/Head without Contrast MR#: [id number] Acct: [id number] Name: IFEOMA ASHRAF Rep # : [id number] : 1965 F 53 From: Levy Lucas DO PCP: Sangeetha Irvin DO Status: REG CLI Study: Brain/Head without Contrast Date of Exam: 04/05/18 Exam# [id number] Ordering Dr: Oscar Bartlett MD STUDY : [...] 14:06 EDT Tel , Service support 1- [phone], N.B. : The above information has been verbally conveyed by Levy Lucas DO to connected , Covering Physician, on 04/05/2018 14:06:03 (ET). CC: Sangeetha Irvin DO; Oscar Bartlett MD Research Assistant: Signed 05-Apr-2018 Brain/Head without Contrast Result: Comments: See Note; NOTES: [facility] Imaging Services [address] [place] [address] Brain/Head without Contrast MR#: [id number] Acct: [id number] Name: IFEOMA ASHRAF Rep # : [id number] : 1965 F 53 From: Levy Lucas DO PCP: Sangeetha Irvin DO Status: REG CLI Study: Brain/Head without Contrast Date of Exam: 04/05/18 Exam# [id number] Ordering Dr: Oscar Bartlett MD STUDY : [...] 14:06 EDT Tel , Service support 1- [phone], N.B. : The above information has been verbally conveyed by Levy Lucas DO to connected , Covering Physician, on 04/05/2018 14:06:03 (ET). CC: Sangeetha Irvin DO; Oscar Bartlett MD Research Assistant: Signed 31-Mar-2018 Cardiology Visit Report Result: Comments: See Note; NOTES: [facility] [address] [place] [address] OFFICE VISIT Date of Service: 03/31/18 MR#: [id number] Acct: [id number] Name: Ifeoma Ashraf Rep #: [id number] : 1965 Provider: Boone Ch MD Age/Sex: 53/F [place] [facility] Status: Signed HPI HPI Chief Complaint: Follow-up [...] who presented to the emergency department at [facility] on 03/08/2018 aft er being found [...] She was eventually transferred to [facility]. Her major problem at this [...] Lt brachial Intake Visit Reasons: DC to [facility] 03-14 Rivet Sticker Required: No Accompanied by: mother Is patient [...] therapy. I would like to obtain a clinical biochemist ry profile to be able to appropriately adjust any diuretics. At this juncture it may be prudent to add Lasix 40 mg a day to her current regimen. 2. Presence of implantable cardioverter-defibrillator (I CD) Z95.810 Generator change 11/13 @ [facility] Dr. Ahmadi Plan She does have [...] months. 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 (breaker boss) Coding Level of Care Code Off vis,est,level [...] Flow Screening Result: Comments: See Note; NOTES: [facility] Cardiovascular Services [address] [place] [address] 11/22/17 0803 MR#: [id number] Acct: [id number] Name: IFEOMA ASHRAF Rep #: [id number] [...] Date Dictated: 11/22/17 0803 Date Transcribed: 11/22/171517 Research Assistant: Signed 18-Nov-2017 Office Visit Report Result: Comments: See Note; NOTES: [place] [address] [place] [address] OFFICE VISIT Date of Service: 11/17/17 MR#: [id number] Acct: [id number] Patient: IFEOMA ASHRAF Rep #: [id number] : 1965 Provider: Danica Pickering Age/Sex: 52/F [...] n office Interview Reason: scheduled follow up Multimedia Editor: [employer] Name: Lan Mckeon VR Model: [id number] Serial #: [id number] Implant Date: 11/10/17 Year(s): 0 Implant Physician: [...] and No drainage Bibiana ds Lead #1 Multimedia Editor Lead 1: [employer] Model Lead 1: 7121Q/58 Serial# Lead 1: [id number] Date Implanted Lead 1: 10/10/09 Position Lead [...] Operative Report Result: Comments: See Note; NOTES: [facility] Medical Records Department [address] [place] [address] Operative Report 11/10/17 1148 MR#: [id number] Acct: [id number] Name: SALOME ASHRAF Rep #: [id number] : 1965 52 From: Lior Ahmadi MD PCP: Sangeetha Irvin DO Status: [facility] [place] Location: [facility] Operative Report Date of Procedure: 11/10/17 Preoperative diagnosis is device at end of life for normal battery depletion. Postoperative diagnosis same as above. After informed consent and IV antibiotics the patient was brought [facility] and the ski n over [...] chart documents provided by the device company associate sales representative procedure summary. 11/10/17 1150 <Electronically signed by Lior Ahmadi MD > Date Lior Ahmadi MD CC: Sangeetha Irvin DO; Lior Ahmadi MD Signed 03-Nov-2017 Office Visit Report Result: Comments: See Note; NOTES: [facility] [place] [address] OFFICE VISIT Date of Service: 11/03/17 MR#: [id number] Acct: [id number] Patient: IFEOMA ASHRAF Rep #: [id number] : 1965 Provider: Danica Pickering Age/Sex: 52/F Location: [facility] Status: Signed Comments Summary Comments: Written [...] in office Interview Reason: routine follow up Multimedia Editor: [employer] Name: Current VR Model: 1211-36Q ICD Serial #: [id number] Implant Date: 10/10/09 Year(s): 8 Implant Physician: [...] Model Lead 1: 7121Q/58 Serial# Lead 1: [id number] Date Implanted Lead 1: 10/10/09 Position Lead [...] Visit Report Result: Comments: See Note; NOTES: [facility] [address] [place] [address] OFFICE VISIT Date of Service: 11/03/17 MR#: [id number] Acct: [id number] Name: IFEOMA ASHRAF Rep #: [id number] : 1965 Provider: Boone Ch MD Age/Sex: 52/F Location: [facility] Status: Signed HPI HPI Details: IFEOMA [...] 25 to 29 (25% per echo 03/11/2015) [facility] Medical History Type 2 diabetes [...] of automatic cardioverter/defibrillator (AICD) Z95.810 10/06/2009 @ [facility] Plan She is status post ICD implantation [...] was also being followed up at the [facility]. She is also on spironolactone and sh [...] and Lateral Result: Comments: See Note; NOTES: [facility] Imaging Services [address] [place] [address] Chest PA and Lateral MR#: [id number] Acct: [id number] Name: IFEOMA ASHRAF Rep #: [id number] : 1965 F 52 From: Dimitris Valderrama DO PCP: Sangeetha Irvin DO Status: [facility] Study: Chest PA and Lateral Date of Exam: 11/03/17 Exam# [id number] Ordering Dr: Boone Ch MD STUDY: X-RAY [...] Dimitris Valderrama DO at 18:21 EST Tel [phone], Se rvice support , CC: Boone Ch MD; Sangeetha Irvin DO Research Assistant: Signed 14-Oct-2017 Office Visit Report Result: Comments: See Note; NOTES: [facility] [place] [address] OFFICE VISIT Date of Service: 10/12/17 MR#: [id number] Acct: [id number] Patient: IFEOMA ASHRAF Rep #: [id number] : 1965 Provider: Danica Pickering Age/Sex: 52/F Location: [facility] Status: Signed Comments Summary Comments: Single Chamber ICD Evaluation: Interrogation shows No VT/VF episodes since . No Alerts noted. Left pectoral pocket/incision w/o s/s of infection or erosion. Pt offers no cardiac complaints. Presenting rhythm shows Sinus Tachycardia @ 105 bpm. Left pectoral pocket/incision w/o s/s of infection or erosion. 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 Battery longevity approx 2.9 mos. At device check in June device showed longevity of 14 mos. D/T longevity decreasing quickly pt scheduled for ICD generator el gilliam with Dr. Ahmadi on 11/10/17 @ [facility]. Lead impedances, sensing and pace/sense threshold remain stable. No parameter changes made. Counters cleared. Pt scheduled for o.v and teaching on 11/03/17 and ICD g enerator change on 11/10/17. Device Device Date Interviewed: 10/12/17 Follow- up Location: in office Interview Reason: routine follow up Multimedia Editor: 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 Model Lead 1: 7121Q/58 Serial# Lead 1: [id number] Date Implanted Lead 1: 10/10/09 Position Lead [...] IV Contrast Result: Comments: See Note; NOTES: [facility] Imaging Services [address] [place] [address] Abdomen WITH IV Contrast MR#: [id number] Acct: [id number] Name: IFEOMA ASHRAF Rep #: [id number] : 1965 F 52 From: Carl Vincent MD PCP: Sangeetha Irvin DO Status: REG CLI Study: Abdomen WITH IV Contrast Date of Exam: 06/15/17 Exam# [id number] Ordering Dr: Analisa Conway MD STUDY: CT [...] CC: Analisa Conway MD; Sangeetha Irvin DO Research Assistant: Signed 15-Jun-2017 Spine Cervical without Contras Result: Comments: See Note; NOTES: [facility] Imaging Services [address] [place] [address] Spine Cervical without Contras MR#: [id number] Acct: [id number] Name: IFEOMA ASHRAF p #: [id number] : 1965 F 52 From: Zev Mandujano MD PCP: Sangeetha Irvin DO Status: REG CLI Study: Spine Cervical without Contras Date of Exam: 06/15/17 Exam# [id number] Ordering Dr: Analisa Conway MD STUDY: CT [...] techniques were used for this CT. [facility]. FINDINGS: Normal craniovertebral junction. Normal anterior [...] CC: Analisa Conway MD; Sangeetha Irvin DO Research Assistant: Signed 10-Feb-2017 Spine Lumbar without Contrast Result: Comments: See Note; NOTES: [facility] Imaging Services [address] [place] [address] Verdana 4d Spine Lumbar without Contrast MR#: [id number] Acct: [id number] Name: MARISEL ASHRAF Rep #: [id number] : 1965 F 51 From: Brian Gill MD PCP: Fast DO,Sangeetha Status: REG CLI Study: Spine Lumbar without Contrast Date of Exam: 02/10/17 Exam# [id number] Ordering Dr: Analisa Carr i, MD STUDY: [...] CC: Analisa Conway MD; Sangeetha Irvin DO Research Assistant: Signed 20-Jan-2017 Liver Result: Comments: See Note; NOTES: [facility] Imaging Services [address] [place] [address] Verdana 4d Liver MR#: [id number] Acct: [id number] Name: IFEOMA ASHRAF Rep #: [id number] : 1965 F 51 From: Vincent Bui DO PCP: Sangeetha Irvin DO Status: REG CLI Study: Liver Date of Exam: 01/20/17 Exam# [id number] Ordering Dr: Sangeetha Irvin DO STUDY: ABDOMINAL [...] Vincent Bui DO at 23:43 EDT Tel [phone], Service support , CC: Sangeetha Irvin DO Research Assistant: Signed 20-Jan-2017 Thyroid Result: Comments: See Note; NOTES: [facility] Imaging Services [address] [place] [address] Verdana 4d Thyroid MR#: [id number] Acct: [id number] Name: IFEOMA ASHRAF Rep #: [id number] : 1965 F 51 From: Jin Rolon PCP: Sangeetha Irvin DO Status: REG CLI Study: Thyroid Date of Exam: 01/20/17 Exam# [id number] Ordering Dr: Sangeetha Irvin DO STUDY: THYROID [...] Service support , CC: Sangeetha Irvin DO Research Assistant: Signed 17-Nov-2016 Dexa Bone Density Study (HP) Result: Comments: See Note; NOTES: [facility] Imaging Services [address] [place] [address] Verdana 4d Dexa Bone Density Study (HP) MR#: [id number] Acct: [id number] Name: COL HARPAL ASHRAF Rep #: [id number] : 1965 F 51 From: Prashant Delgadillo MD PCP: Sangeetha Irvin DO Status: REG CLI Study: Dexa Bone Density Study (HP) Date of Exam: 11/17/16 Exam# [id number] Ordering Dr: Sangeetha Irvin DO STUDY: DUAL [...] Prashant Delgadillo MD at 10:52 EST Tel [phone], Service support [phone], CC: Sangeetha Irvin DO Research Assistant: Signed 17-Nov-2016 SCREENING MAMM (CAD), BILAT Result: Comments: See Note; NOTES: [facility] Imaging Services [address] [place] [address] Verdana 4d SCREENING MAMM (CAD), BILAT MR#: [id number] Acct: [id number] Name: SALOME ASHRAF Rep #: [id number] : 1965 F 51 From: Prashant Delgadillo MD PCP: Sangeetha Irvin DO Status: REG CLI Study: SCREENING MAMM (CAD), BILAT Date of Exam: 11/17/16 Exam# [id number] Ordering Dr: Gary Irvin DO MAMMOGRAPHY - [...] biopsy of a clinically suspiciou s abnormality. [id number] Electronically Signed: Prashant Delgadillo MD at 12:55 EST Tel [phone], Service support [phone], CC: Sangeetha Irvin DO Research Assistant: Signed 17-Nov-2016 SCREENING MAMM (CAD), BILAT Result: Comments: See Note; NOTES: [facility] Imaging Services [address] [place] [address] Verdana 4d SCREENING MAMM (CAD), BILAT MR#: [id number] Acct: [id number] Name: SALOME ASHRAF Rep #: [id number] : 1965 F 51 From: Prashant Delgadillo MD PCP: Sangeetha Irvin DO Status: REG CLI Study: SCREENING MAMM (CAD), BILAT Date of Exam: 11/17/16 Exam# [id number] Ordering Dr: Gary Irvin DO ADDENDUM by [...] delay biopsy of a clinically suspicious abnormality. [id number] Electronically Signed: Prashant Delgadillo MD at 13:07 EST Tel [phone], Service support [phone], 11/17/16 1315 Date cc: Sangeetha Irvin DO [...] was performed. COMPARISON: Comparison is made with [facility] r study dated August 14, 2015 [...] delay biopsy of a clinically suspicious abnormality. [id number] Electronically Signed: Prashant Delgadillo MD at 12:55 EST Tel [phone], Ser vice support [phone], CC: Sangeetha Irvin DO Research Assistant: Signed 19-Dec-2015 Liver Result: Comments: See Note; NOTES: [facility] Imaging Services [address] [place] [address] Verdana 4d Liver MR#: [id number] Acct: [id number] Name: IFEOMA ASHRAF Rep #: [id number] : 1965 F 50 From: Ziggy Santos MD PCP: Sangeetha Irvin DO Status: REG CLI Study: Liver Date of Exam: 12/19/15 Exam# [id number] Ordering Dr: Sangeetha Irvin DO STUDY: ABDOMINAL [...] Service support , CC: Sangeetha Irvin DO Research Assistant: Signed 19-Dec-2015 Thyroid Result: Comments: See Note; NOTES: [facility] Imaging Services [address] [place] [address] Verdana 4d Thyroid MR#: [id number] Acct: [id number] Name: MARIOWAQASIFEOMA Abreu ep #: [id number] : 1965 F 50 From: Ziggy Santos MD PCP: Sangeetha Irvin DO Status: REG CLI Study: Thyroid Date of Exam: 12/19/15 Exam# [id number] Ordering Dr: Sangeetha Irvin DO STUDY: THYROID [...] Service support , CC: Sangeetha Irvin DO Research Assistant: Signed 14-Aug-2015 Bilat Scrn Digital AND CAD Result: Comments: See Note; NOTES: [facility] Imaging Services [address] [place] [address] Verdana 4d Bilat Scrn Digital AND CAD MR#: [id number] Acct: [id number] Name: IFEOMA ASHRAF Rep #: [id number] : 1965 F 50 From: Prashant Delgadillo MD PCP: Sangeetha Irvin DO Status: REG CLI Study: Bilat Scrn Digital AND CAD Date of Exam: 08/14/15 Exam# [id number] Order ing Dr: Sangeetha Irvin DO MAMMOGRAPHY [...] Prashant Delgadillo MD at 10:49 EST Tel [phone], Service support [phone], CC: Sangeetha Irvin DO Research Assistant: Signed 10-Mar-2015 Emergency Department Summary Result: Comments: See Note; NOTES: [facility] Medical Records Department [address] [place] [address] Emergency Department Summary MR#: [id number] Acct: [id number] Name: IFEOMA RASMUSSEN Rep #: [id number] : 1965 49 From: Mayito Roldan DO PCP: Sangeetha Irvin DO Status: [facility] ER DATE OF SERVICE: 02/28/2015 [...] way. Mayito Roldan DO T: NTS JOB: [id number] 03/10/15 2329 <Electronically signed by Mayito Roldan DO> Date Mayito Roldan DO CC: Sangeetha Irvin DO Date Dictated: 02/28/15824 Date Transcribed: 02/28/15824 Research Assistant: Signed 02-Mar-2015 Emergency Department Summary Result: Comments: See Note; NOTES: [facility] Medical Records Department [address] [place] [address] Emergency Department Summary MR#: [id number] Acct: [id number] Name: IFEOMA RASMUSSEN Rep #: [id number] : 1965 49 From: Alejandro Lopez DO PCP: Sangeetha Irvin DO Status: [facility] ER DATE OF SERVICE: 02/28/2015 CHIEF [...] The patient has plans to go to [facility] on General. I will give her local surgeon's name if she wants to speak with them or she can certainly also speak with Dr. Irvin. CLINICAL IMPRESSION: Biliary colic. Alejandro Lopez DO T: ROCK JOB: [id number] 03/02/15 0743 <Electronically signed by Alejandro Lopez DO> Date Alejandro Lopez DO CC: Sangeetha Irvin DO Date Dictated: 718 Date Transcribed: 02/28/15718 Research Assistant: Signed 28-Feb-2015 Discharge Instruction Result: Comments: See Note; NOTES: [facility] Medical Records Department [address] [place] [address] Discharge Instruction 02/28/15 0639 MR#: [id number] Acct: [id number] Name: IFEOMA ASHRAF Rep #: [id number] : 1965 49 From: Alejandro Lopez DO [...] any unexpected problems, contact your doctor. Call [facility] ([phone]) or report to the closest Em ergency Room. Call 911 if necessary. 02/28/15 0640 <Electronically signed by Alejandro Lopez DO> Date Alejandro Lopez DO Cosign er Signature (If Indicated): Date CC: Sangeetha Irvin DO 28-Feb-2015 Gallbladder Result: Comments: See Note; NOTES: [facility] Imaging Services [address] [place] [address] Ultrasound Report MR#: [id number] Acct: [id number] Name: IFEOMA ASHRAF Rep #: [id number] : 1965 F 49 From: Prashant Delgadillo MD PCP: Sangeetha Irvin DO Status: REG ER Study: Gallbladder Date of Exam: 02/28/15 Exam# [id number] Ordering Dr: Alejandro Lopez DO STUDY: ABDOM [...] Prashant Delgadillo MD at 8:15 EDT Tel [phone], Service support [phone], CC: Aleajndro Lopez DO; Sangeetha Irvin DO Research Assistant: Signed 11-Feb-2015 Spine Cervical without Contras Result: Comments: See Note; NOTES: [facility] Imaging Services [address] [place] [address] CAT Scan Report MR#: [id number] Acct: [id number] Name: IFEOMA ASHRAF Rep #: [id number] : 1965 F 49 From: Prashant Delgadillo MD PCP: Sangeetha Irvin DO Status: REG CLI Study: Spine Cervical without Contras Date of Exam: 02/11/15 Exam# [id number] Ordering Dr: Analisa Conway MD STUDY: CT [...] Prashant Delgadillo MD at 9:49 EDT Tel [phone], Service support [phone], CC: Analisa Conway MD; Sangeetha Irvin DO Research Assistant: Signed 18-Jul-2014 Bilat Scrn Digital & CAD Result: Comments: See Note; NOTES: [facility] Imaging Services [address] [place] [address] Breast Imaging Report MR#: [id number] Acct: [id number] Name: IFEOMA ASHRAF Rep # : [id number] : 1965 F 49 From: Prashant Delgadillo MD PCP: Sangeetha Irvin DO Status: REG CLI Exam# [id number] Ordering Dr: Sangeetha Irvin DO MAMMOGRAPHY - [...] Prashant Delgadillo MD at 8:36 EDT Tel [phone], Servi ce support [phone], CC: Sangeetha Irvin DO Research Assistant: Signed 18-Jul-2014 Liver Result: Comments: See Note; NOTES: [facility] Imaging Services [address] [place] [address] Ultrasound Report MR#: [id number] Acct: [id number] Name: IFEOMA ASHRAF Rep #: : 1965 F 49 From: Prashant Delgadillo MD PCP: Sangeetha Irvin DO Status: REG CLI Study: Liver Date of Exam: 07/18/14 Exam# [id number] Ordering Dr: Sangeetha Irvin DO STUDY: ABDOMINAL [...] Prashant Delgadillo MD at 9:34 EDT Tel [phone], Service support [phone], CC: Sangeetha Irvin DO Research Assistant: Signed 18-Jul-2014 Thyroid Result: Comments: See Note; NOTES: [facility] Imaging Services [address] [place] [address] Ultrasound Report MR#: [id number] Acct: [id number] Name: IFEOMA ASHRAF Rep #: [id number] : 1965 F 49 From: Prashant Delgadillo MD PCP: Sangeetha Irvin DO Status: REG CLI Study: Thyroid Date of Exam: 07/18/14 Exam# [id number] Ordering Dr: Sangeetha Irvin DO STUDY: THYROID [...] Delgadillo MD at 8:41 EDT T el [phone], Service support [phone], CC: Sangeetha Irvin DO Research Assistant: Signed 05-Feb-2014 Brain/Head W/WO Contrast Result: Comments: See Note; NOTES: [facility] Imaging Services [address] [place] [address] CAT Scan Report MR#: [id number] Acct: [id number] Name: IFEOMA ASHRAF Rep #: [id number] : 1965 F 48 From: Prashant Delgadillo MD PCP: Sangeetha Irvin DO Status: REG CLI Study: Brain/Head W/WO Contrast Date of Exam: 02/05/14 Exam# [id number] Ordering Dr: Sangeetha Irvin DO STUD Y: [...] Prashant Delgadillo MD at 9:19 EDT Tel [phone], Service support [phone], CC: Sangeetha Irvin DO Research Assistant: Signed Immunization Name Dates Details Influenza (3 years and up) on: 10-Jul-2008 Comments: injection given in left deltoid, pt tolerated welllot # [id number] Influenza (3 years and up) on: 09-Jul-2009 Comments: Lot #[id number]-right deltoidDose0.5mlgiven by Juventino Nye LPN Family History [...] kg/m2 Body Surface Area Calculated 2.02 m2 22-Kyz-137072:59 Temperature 97.9 f Comments: Method: Temporal Pulse [...] kg/m2 Body Surface Area Calculated 2.02 m2 23-Vtg-592835:08 Temperature 97.3 f Comments: Method: Temporal Pulse [...] Value Details :59 BNP,B-Type NATRIURETIC PEPTIDE Comments: [facility] Pbaeokkqmq2574 [facility] [address] [place], [place], [address] B-TYPE JACKIE PEP 819.3 pg/mL (Abnormal) Range: 0-100 :59 CBC W/Diff, Automated Comments: [facility] Cyuuhzzaoz0745 [facility] [address]. [place], [place], [address] Absolute Lymph 1.08 {X10_3/ul} (Normal) Range: 0.83-4.51 [...] 4.2-5.4 WBC 7.5 K/mm3 (Normal) Range: 4.4-11.0 99-Bwp-977182:59 Comprehensive Metabolic Profil Comments: 'TROP' Serial specimen #1, #2, #3, or #4: [address] [place] [address] [address] [place], [place], [address] GAP 8 (Normal) Range: 5-15 CO2 29.0 [...] A.D.A. criteria.Please note revised GLUCOSE reference range umilosygy89/02/2018. 83-Wyc-343205:59 CPK Total, Creatine Kinase Comments: 'TROP' Serial specimen #1, #2, #3, or #4: [address] [place] [address] [place], [address] CPK TOTAL 30 U/L (Normal) Range: 26-192 39-Zhc-859646:59 D-Dimer Quantitative (DVT/PE) Comments: [facility] [address] [place], [address] D-DIMER QUANT 1.44 {FEU/ug/m} (Abnormal) Range: 0.27-0.49 Comments: CRITICAL VALUE VERIFIED. CALLED TO MSLQZJIU63/10/18 1440 Francois Quinn.RESULTS READ BACK BY SAME .D-Dimer ELEVATED (>0.49): Additional studies and clinicalassessments are indicated to conclude di agnosis of:Deep Vein Thrombosis (DVT) or Pulmonary Embolism (PE) 00-Wdd-563429:59 Troponin-I Comments: 'TROP' Serial specimen #1, #2, #3, or #4: [address] [place] [address] [place], [address] TROPONIN-I 0.030 ng/mL (Normal) Comments: TROPONIN-I EXPECTED VALUES <0.045 Negative 0.045 - 0.590 Consistent with Cardiac Damage > OR = 0.600 Critical Value Not every elevated troponin is indicative of [place]. T hesevalues should be used with clinical judgement in examiningthe patient's clinical picture for diagnosis. To establisha diagnosis of OH versus myocardial injury, there must be ademonstrated rise and/ or fall in the troponin values, inaddition to ischemic symptoms, EKG changes, new regionalwall motion abnormality, and/or angiographical evidence. PLEASE NOTE: REFERENCE RANGES EDITED 02/06/1829-Aug-20189-Qyu-587063:44 ANCA Comments: Is Patient Fasting? [facility] (refer to report for specific site)refer to report for address and phone number Atypical pANCA <1:20 {titer} (Normal) Comments: The atypical pANCA pattern has been observed in asignificant percentage of patients with ulcerative colitis,primary sclerosing cholangitis and autoimmune hepatitis.Performed at: [facility] [id number] Director: Omar Hood PhD, Phone: [phone] PERINUCLEAR Ab <1:20 {titer} (Normal) Comments: The presence of positive fluorescence exhibiting P-ANCA orC-ANCA patterns alone is not specific for the diagnosis ofWegener's Granulomatosis (WG) or microscopic polyangiitis.Decisions about treatment sh ould not be based solely onANCA IFA results. The International ANCA Group Consensusrecommends follow up testing of positive sera with both MT-3 and MPO- ANCA enzyme immunoassays. As many as 5% serumsamp les are positive only by EIA. Ref. AM J Clin Fvjmkl6905;111:507-513. CYTOPLASMIC Ab <1:20 {titer} (Normal) 8-Och-158510:44 ANTINUCLEAR ANTIBODIES DIRECT Comments: [facility] (refer to report for specific site)refer to report for address and phone number LASHA-DIRECT Negative (Normal) Comments: Performed at: [facility] [id number] Director: Omar Hood PhD, Phone: [phone] 3-Xcd-651375:44 CPK Total, Creatine Kinase Comments: [facility] [address] [place], [place], [address] CPK TOTAL 33 U/L (Normal) Range: 26-192 7-Jko-466974:44 Hemoglobin A1c Comments: [facility] [address] [place], [place], [address] HGB A1C 10.6 % (Abnormal) Range: 4.2-6.3 7-Ttz-434249:44 PRANEETH AND PE, Random UR Comments: Is Patient Fasting? [facility] (refer to report for specific site)refer to report for address and phone number NOTE Comment (Normal) Comments: Protein electrophoresis scan will follow via computer,mail, or drywall stripper delivery. PRANEETH RESULT,U Comment (Normal) Comments: No monoclonality detected. M-SPIKE,UR% Not Observed % (Normal) GAMMA GLOB,U 5.5 % (Normal) BETA GLOB,U 14.2 % (Normal) GLVVG-6-HIHE,U 10.8 % (Normal) DSDXJ-8-IJIM,U 7.6 % (Normal) ALBUMIN,U 62.0 % (Normal) PROTEIN,UR 27.8 mg/dL (Normal) 2-Wlc-035436:44 PRANEETH + Protein Elect, Serum Comments: Is Patient Fasting? [facility] (refer to report for specific site)refer to report for address and phone number NOTE: Comment (Normal) Comments: Protein electrophoresis scan will follow via computer,mail, or drywall stripper delivery. PRANEETH RESULT,S Comment (Normal) Comments: No monoclonality detected. A/G RATIO 1.2 (Normal) Range: 0.7-1.7 GLOBULIN, TOTAL 2.9 g/dL (Normal) Range: 2.2-3.9 M-SPIKE g/dL (Normal) Comments: Not Observed GAMMA GLOBULIN 0.6 g/dL (Normal) Range: 0.4-1.8 BETA GLOBULIN 1.1 g/dL (Normal) Range: 0.7-1.3 AFMEP-7-DCDN 0.9 g/dL (Normal) Range: 0.4-1.0 AKVVR-1-VEKJ 0.3 g/dL (Normal) Range: 0.0-0.4 ALBUMIN 3.4 g/dL (Normal) Range: 2.9-4.4 IMMUNOGL M 103 mg/dL (Normal) Range: 26-217 IMMUNO A 69 mg/dL (Abnormal) Range: 87-352 IMMUNO G 538 mg/dL (Abnormal) Range: 700-1600 PROTEIN,TOTAL 6.3 g/dL (Normal) Range: 6.0-8.5 9-Pch-007959:44 Rheumatoid Factor Comments: [facility] [address] [place], [place], [address] RHEUMATOID FAC < 10.0 {IU/mL} (Normal) 1-Fdt-321812:44 Sjogren's Antibodies A/B Comments: [facility] (refer to report for specific site)refer to report for address and phone number Anti-SS-B < 0.2 {AI} (Normal) Range: 0.0-0.9 Anti-SS-A < 0.2 {AI} (Normal) Range: 0.0-0.9 8-Nmc-666769:44 Thyroid Stim Hormone (TSH) Comments: [facility] [address] [place], [address] TSH 2.71 {uIU/mL} (Normal) Range: 0.358-3.74 1-Ets-810670:44 Vitamin B12 1303 pg/mL (Abnormal) Comments: [facility] [address] [place], [address] Range: 211-911 :44 Vitamin D,25 Hydroxy Comments: [facility] [address] [place], [address] Vitamin D 25-OH 62.4 ng/mL (Normal) Range: 29.95-100.01 Comments: Vitamin D 25(OH) Status Range Deficiency <20 ng/mL (50nmol/L) Insuffciency 20 - 30 ng/mL (50 - 75 nmol/L) Sufficiency 30 - 100 ng/mL (75 - 250 nmol/L) Toxicity >100 ng/mL (>250 nmol/L) 8-Tya-960996:06 Basic Metabolic Profile (BMP) Comments: PLEASE FAX TO DR. CANTU [phone] [facility] [address] [place], [address] GAP 12 (Normal) Range: 5-15 CO2 26.0 [...] A.D.A. criteria.Please note revised GLUCOSE reference range fpcrvfkew39/02/2018. 92-Aaj-45893:22 CBC W/Diff, Automated Comments: BMP TO DULCE TIMMONS.CBCD, TSH, B12 TO DR. SANGEETHA IRVIN.[facility] [address] [place], [address] Absolute Lymph 1.16 {X10_3/ul} (Normal) Range: 0.83-4.51 [...] 4.2-5.4 WBC 8.0 K/mm3 (Normal) Range: 4.4-11.0 34-Owq-38478:22 Vitamin B12 659 pg/mL (Normal) Comments: BMP TO DULCE [facility].CBCD, TSH, B12 TO DR. SANGEETHA IRVIN.[facility] [address] [place], [address] Range: 211-911 20-Cfe-09083:20 Basic Metabolic Profile (BMP) Comments: BMP TO DULCE [facility].CBCD, TSH, B12 TO DR. SANGEETHA IRVIN.[facility] [address] [place], [place], [address] GAP 9 (Normal) Range: 5-15 CO2 27.0 [...] A.D.A. criteria.Please note revised GLUCOSE reference range mwpipmtxh94/02/2018. 51-Hyx-89874:20 Thyroid Stim Hormone (TSH) Comments: BMP TO DULCE [facility].CBCD, TSH, B12 TO DR. SANGEETHA IRVIN.[facility] [address] [place], [place], [address] TSH 4.09 {uIU/mL} (Abnormal) Range: 0.358-3.74 80-Vqw-743244:23 Basic Metabolic Profile (BMP) Comments: [facility] [address] [place], [address] GAP 7 (Normal) Range: 5-15 CO2 30.0 [...] A.D.A. criteria.Please note revised GLUCOSE reference range jyfllyutz21/02/2018. 26-Nqe-149064:23 BNP,B-Type NATRIURETIC PEPTIDE Comments: [facility] [address] [place], [address] B-TYPE JACKIE PEP 892.7 pg/mL (Abnormal) Range: 0-100 13-Wcx-756430:23 CBC W/Diff, Automated Comments: [facility] [address] [place], [address] Absolute Lymph 1.23 {X10_3/ul} (Normal) Range: 0.83-4.51 [...] 4.2-5.4 WBC 7.2 K/mm3 (Normal) Range: 4.4-11.0 57-Bva-020200:41 CBC W/Diff, Automated Comments: Reason for Laboratory Test .[facility] Is[address] [facility]. [place], [place], [address] Absolute Lymph 0.85 {X10_3/ul} (Normal) Range: 0.83-4.51 [...] 4.2-5.4 WBC 5.7 K/mm3 (Normal) Range: 4.4-11.0 51-Ygb-275535:41 Comprehensive Metabolic Profil Comments: Reason for Laboratory Test .Serial Specimen #1, #2 or #3? 1[facility] [address] [place], [address] GAP 8 (Normal) Range: 5-15 CO2 28.0 [...] A.D.A. criteria.Please note revised GLUCOSE reference range kigbaruzv46/02/2018. 25-Txg-114615:41 LDH 224 U/L (Normal) Comments: Reason for Laboratory Test .Serial Specimen #1, #2 or #3? 1[facility] [address] [place], [place], [address] Range: 84-246 3-Dpv-137364:41 URINE GENESIS CULTURE-IDENTIFICATN Comments: add to urine in lab; PATIENT NOT FASTINGPERFORMED BY: [facility] Lvtqui1595 [facility] [id number] Information: SRC:JUAN ([id number]) Result 1 ENTEAE (Abnormal) Comments: Enterobacter aerogenes1,000 [...] S Urine Final report Culture,Comprehensi (Abnormal) ve 99-Tum-99031:46 AFP, Tumor Marker Comments: Is Patient ? [facility] (refer to report for specific site)refer to report for address and phone number AFP TUMOR 2253 10.0 ng/mL (Abnormal) Range: 0.0-8.3 Comments: Khanh ECLIA methodologyPerformed at: CB - [facility] [address] [place], [place] [id number] Director: Omar Hood PhD, Phone: [phone] :46 CBC W/Diff, Automated Comments: [facility] [address] [place], [place], [address] Absolute Lymph 0.95 {X10_3/ul} (Normal) Range: 0.83-4.51 [...] T4F TO BLOOD FROM 05-25-18 G2 5 [facility] [address] [place], [address] GAP 9 (Normal) Range: 5-15 CO2 28.0 [...] A.D.A. criteria.Please note revised GLUCOSE reference range fkmnidnlc41/02/2018. :46 Digoxin Level Comments: [facility] [address] [place], [address] DIG 0.71 ng/mL (Abnormal) Range: 0.80-2.00 :46 Free T3 Comments: PLEASE ADD T3F T4F TO BLOOD FROM 05-25-18G2 [address] [place] [address] [address] [place], [place], [address] FREE T3 3.2 pg/mL (Normal) Range: 2.18-3.98 :46 Hemoglobin A1c Comments: [facility] [address] [place], [place], [address] HGB A1C 5.4 % (Normal) Range: 4.2-6.3 :46 Lipid Profile Comments: PLEASE ADD T3F T4F TO BLOOD FROM 05-25-18G2 [address] [place] [address] [address] [place], [place], [address] VLDL 22 mg/dL (Normal) Range: 5-40 LDL [...] High Risk :46 Microalb:Creat Ratio,Random UR Comments: [facility] [address] [place], [place], [address] MALB:CREAT 7.8 {mg/g_CRE} (Normal) MICROALBUMIN,UR 10.9 mg/L (Normal) UR CREAT 139.00 mg/dL (Normal) :46 T4 Free Direct Comments: PLEASE ADD T3F T4F TO BLOOD FROM 05-25-18G2 [address] [place] [address] [address] [place], [address] T4 FREE DIRECT 1.11 ng/dL (Normal) Range: 0.76-1.46 :46 Thyroid Stim Hormone (TSH) Comments: PLEASE ADD T3F T4F TO BLOOD FROM 05-25- THG2 5 [facility] [address] [place], [address] TSH 0.31 {uIU/mL} (Abnormal) Range: 0.358-3.74 :46 Urinalysis, Complete Comments: How was Urine Obtained? [facility]ATCH[facility] [address]quzw68[address] [place], [address] MUCUS, URINE 0 SEEN [...] :46 Vitamin B12 368 pg/mL (Normal) Comments: [facility] [address]iryfesh7[address] [place], [address] Range: 211-911 :46 Vitamin D,25 Hydroxy Comments: [facility] [address]woa8[address] [place], [address] Vitamin D 25-OH 64.5 ng/mL (Normal) Range: 29.95-100.01 Comments: Vitamin D 25(OH) Status Range Deficiency <20 ng/mL (50nmol/L) Insuffciency 20 - 30 ng/mL (50 - 75 nmol/L) Sufficiency 30 - 100 ng/mL (75 - 250 nmol/L) Toxicity >100 ng/mL (>250 nmol/L) 72-Yyh-088896:52 Urinalysis, Complete Comments: Order Date: 04/06/18Has pt arrived? YHow was Urine Obtained? [facility] [address]pxfz[address] [place], [place], [address] HYALINE CAST 5-10 SEEN {/lpf} (Normal) Range: [...] (Normal) CLARITY Cloudy (Normal) COLOR Yellow (Normal) 61-Hqm-894740:30 CBC W/Diff, Automated Comments: [facility] [address] [place], [address] OVALOCYTE RARE (Normal) MACROCYTE 1+ [...] 4.2-5.4 WBC 9.1 K/mm3 (Normal) Range: 4.4-11.0 82-Kfx-488742:30 Comprehensive Metabolic Profil Comments: [facility] [address] [place], [place], [address] GAP 12 (Normal) Range: 5-15 CO2 30.0 [...] Comments: Please note revised GLUCOSE reference range axezrecbg22/02/2018. 85-Nzx-882495:30 Lactic Acid Comments: Yes/No query for Sepsis Lactate Rule [facility] [address]ma[address] [place], [place], [address] LACTIC ACID 6.7 mmol/L (Abnormal) Range: 0.4-2.0 Comments: Critical Result(s) Called Lisa RIVERA at: 20:23: by: BRITTANY TORRES 13-Maw-949476:30 Partial Thromboplast Time Comments: [facility] [address] [place], [place], [address] PTT 41.3 s (Abnormal) Range: 24.1-36.2 52-Wzk-624602:30 Prothrombin Time w/INR Comments: [facility] [address] [place], [place], [address] INR 2.3 (Normal) PROTIME 25.6 s (Abnormal) Range: 11.7-14.9 80-Dsg-495697:30 Troponin-I Comments: [facility] [address] [place], [place], [address] TROPONIN-I 0.046 ng/mL (Abnormal) Comments: TROPONIN-I EXPECTED VALUES <0.045 Negative 0.045 - 0.590 Consistent with Cardiac Damage > OR = 0.600 Critical Value Not every elevated troponin is indicative of [place]. T hesevalues should be used with clinical judgement in examiningthe patient's clinical picture for diagnosis. To establisha diagnosis of OH versus myocardial injury, there must be ademonstrated rise and/ or fall in the troponin values, inaddition to ischemic symptoms, EKG changes, new regionalwall motion abnormality, and/or angiographical evidence. PLEASE NOTE: REFERENCE RANGES EDITED 02/06/1805-Apr-201878-Inu-960532:08 Ammonia Comments: [facility] [address] [place], [place], [address] AMMONIA 20.0 umol/L (Normal) Range: 11-32 15-Slm-696168:08 CBC-Complete Blood Cnt No Diff Comments: [facility] [address] [place], [place], [address] MPV 10.6 fL (Normal) Range: 6.2-12.0 PLT [...] 4.2-5.4 WBC 6.6 K/mm3 (Normal) Range: 4.4-11.0 23-Bnj-874915:08 Comprehensive Metabolic Profil Comments: [facility] [address] [place], [place], [address] GAP 9 (Normal) Range: 5-15 CO2 35.0 [...] Comments: Please note revised GLUCOSE reference range fozwpacrl79/02/2018. 42-Air-676332:08 Differential Comment Comments: [facility] [address] [place], [address] SMEAR COMMENT COMMENT (Normal) Comments: SLIDE SCANNED - 1+ ANISO NOTED. 40-Cmx-10482:55 Urinalysis, Complete Comments: How was Urine Obtained? [facility] [address]qbi[address] [place], [address] AMORPHOUS 2+ (Normal) HYALINE CAST [...] (Normal) :55 Urine Drug Screen (VISTA) Comments: [facility] [address] [place], [address] TO BE CONFIRMED (Normal) Comments: [...] USE TESTMNEMONIC: UTCA :59 Bedside Glucose Comments: [facility] LaboratoryPoint of [address] [place] [address] BEDSIDE GLU 169 mg/dL (Abnormal) Range: 70-110 Comments: MANAGEMENT OF PATIENT CARE PER NURSING PROTOCOL :35 Basic Metabolic Profile (BMP) Comments: [facility] [address] [place], [place], [address] GAP 16 (Abnormal) Range: 5-15 CO2 15.0 mmol/L (Abnormal) Range: 21.0-32.0 CL 104 mmol/L (Normal) Range: 98-107 K 6.2 mmol/L (Abnormal) Range: 3.5-5.1 Comments: Critical Result(s) Called at: 01:06:28 03/08/2018 by:ANSLEY STANFORD,SORTER UPHOLSTERY PARTS NA 135 mmol/L (Abnormal) Range: 136-145 CA [...] A.D.A. criteria.Please note revised GLUCOSE reference range zrxurczxq82/02/2018. 22-Xer-405968:59 Acetaminophen (Tylenol) Level Comments: [facility] [address] [place], [place], [address] ACETAMINOPHEN 4.9 ug/mL (Abnormal) Range: 10.0-30.0 Comments: Slight Icterus, Result may be falsely decreased. 12-Kqo-980715:59 Acetone Serum Comments: [facility] [address] [place], [address] ACETONE SERUM NEGATIVE (Normal) 61-Tbk-192094:59 Alcohol, Blood (Medical)-Serum Comments: [facility] [address] [place], [address] SERUM ETOH 8.0 mg/dL (Normal) Comments: The serum:whole blood ethanol ratio is approximately 1.14and varies slightly with hematocrit.Medical Alcohol reference interval and critical value innon-tolerant individuals; 50 - 100 Impairment 100 Intoxication 100 - 250 Severe Poisoning 250 - 400 Deep/possible fatal coma 90-Pti-190189:59 Digoxin Level Comments: [facility] [address] [place], [address] DIG 0.32 ng/mL (Abnormal) Range: 0.80-2.00 59-Efg-434790:59 Lactic Acid Comments: Yes/No query for Sepsis Lactate Rule [facility] [address]vz[address] [place], [address] LACTIC ACID 12.4 mmol/L (Abnormal) Range: 0.4-2.0 Comments: Critical Result(s) Called at: 00:52:58 03/08/2018 by:ANSLEY OWENSSORTER UPHOLSTERY PARTS 05-Hxg-[id number] Partial Thromboplast Time Comments: [id number] [place], [address] PTT 33.7 s (Normal) Range: 24.1-36.2 [id number] Prothrombin Time w/INR Comments: [place] [id number] [place], [address] INR 2.4 (Normal) PROTIME 26.4 s (Abnormal) Range: 11.7-14.9 :59 Salicylate Comments: [place] [id number] [place], [address] SALICYLATE < 1.7 mg/dL (Abnormal) Range: 2.8-20.0 Comments: Slight Icterus, Result may be falsely decreased. [id number] Blood Gases by [facility] Comments: [facility] [id number] [place] [address] SO2 ISTAT 99 % (Normal) Range: [...] Radial (Normal) BLD GAS TYPE ART (Normal) [id number] Bedside Glucose Comments: [facility] [id number] [place] [address] BEDSIDE GLU 214 mg/dL (Abnormal) Range: 70-110 Comments: MANAGEMENT OF PATIENT CARE PER NURSING PROTOCOL 50-Xeq-244956:37 Basic Metabolic Profile (BMP) Comments: [facility] [address] [place], [place], [address] GAP 19 (Abnormal) Range: 5-15 CO2 11.0 [...] A.D.A. criteria.Please note revised GLUCOSE reference range tfelwwknv47/10/2017. 09-Vhh-442156:37 CBC W/Diff, Automated Comments: [facility] [address] [place], [address] CRENATED RBC 1+ (Normal) ANISO 1+ (Normal) [...] 4.2-5.4 WBC 5.5 K/mm3 (Normal) Range: 4.4-11.0 36-Guy-898493:37 Lipase Comments: [facility] [address] [place], [id number] LIPASE 86 U/L (Normal) Range: 73-393 62-Ail-095892:37 Liver Profile Comments: [facility] [address] [place], [address] D BILI 1.07 mg/dL (Abnormal) Range: 0.00-0.30 T BILI 2.40 mg/dL (Abnormal) Range: 0.20-1.00 ALT 120 U/L (Abnormal) Range: 13-56 ALK P 94 U/L (Normal) Range: 45-117 AST 149 U/L (Abnormal) Range: 15-37 Comments: Moderate Hemolysis, Result may be falsely increased. GLOB 2.9 g/dL (Normal) Range: 2.2-4.2 ALB 3.0 g/dL (Abnormal) Range: 3.2-5.0 T PROT 5.9 g/dL (Abnormal) Range: 6.4-8.2 14-Twb-337309:37 Magnesium Comments: [facility] [address] [place], [address] MG 2.0 mg/dL (Normal) Range: 1.6-2.6 Comments: Moderate Hemolysis, Result may be falsely increased. 64-Deg-307394:37 Troponin-I Comments: [facility] [address]sw[address] [facility] [address] [place], [place], [address] TROPONIN-I 0.081 ng/mL (Abnormal) Comments: TROPONIN-I EXPECTED VALUES <0.045 Negative 0.045 - 0.590 Consistent with Cardiac Damage > OR = 0.600 Critical Value Not every elevated troponin is indicative of [place]. T hesevalues should be used with clinical judgement in examiningthe patient's clinical picture for diagnosis. To establisha diagnosis of OH versus myocardial injury, there must be ademonstrated rise and/ or fall in the troponin values, inaddition to ischemic symptoms, EKG changes, new regionalwall motion abnormality, and/or angiographical evidence. PLEASE NOTE: REFERENCE RANGES EDITED 02/06/1824-Feb-20187-Qxf-132941:21 CMV ANTIBODY (39873) Comments: today; PATIENT NOT FASTINGPERFORMED BY: [facility]Co[facility] CenterFwkych6151 [facility] [id number] Cytomegalovirus (CMV) Ab, IgG <0.60 U/mL (Normal) Range: 0.00-0.59 Comments: Negative <0.60 Equivocal 0.60 - 0.69 Positive >0.69 5-Rsd-810775:21 HEPATITIS PANEL (70728) Comments: today; PATIENT NOT FASTINGPERFORMED BY: [facility]6370 [facility] [id number] Hep C Virus Ab <0.1 {s/co_ratio} (Normal) Range: 0.0-0.9 Comments: Negative: < 0.8 Indeterminate: 0.8 - 0.9 Positive: > 0.9 . The CDC recommends that a positive HCV antibody result be followed up with a HCV Nucleic Acid Amplification test (779256). Hep B Core Ab, IgM Negative (Normal) HBsAg Screen Negative (Normal) Hep A Ab, IgM Negative (Normal) 6-Kbe-722889:21 EBV Panel (46063) Comments: today; PATIENT NOT FASTINGPERFORMED BY: [facility]6370 [facility] [id number] Interpretation: SPRCS (Normal) Comments: EBV Interpretation Chart [...] <36.0 Equivocal 36.0 - 43.9 Positive >43.9 02-Vkv-549886:19 CBC W/Diff, Automated Comments: Order Date: 02/23/18Order Info: 0184-1 - CBCDOrder Info: 58369-7 - [facility] [address] [place], [address] MACROCYTE 1+ (Normal) ANISO RARE (Normal) [...] 4.2-5.4 WBC 6.9 K/mm3 (Normal) Range: 4.4-11.0 68-Ucs-641623:19 Comprehensive Metabolic Profil Comments: Order Date: 02/23/18Order Info: 0786-1 - CMPOrder Info: 1798-8 - AMYOrder Info: 3040-3 - LIPASEThe [facility] [address]wqyd[address] [place], [address] GAP 11 (Normal) Range: 5-15 CO2 25.0 [...] A.D.A. criteria.Please note revised GLUCOSE reference range xkwyaxfgw59/02/2018. 34-Lhx-259259:19 Erythrocyte Sed Rate Comments: Order Date: 02/23/18Order Info: 0184-1 - CBCDOrder Info: 13359-8 - [facility] Asvyxludpt[address] [place], [address] SED RATE 16 mm/h (Normal) Range: 0-30 99-Pyq-578042:19 Lipase (84576) Comments: Order Date: 02/23/18Order Info: 0786- 1 - CMPOrder Info: 1798-8 - AMYOrder Info: 3040-3 - [facility]IPASEThe [facility] [address]qev[address] [place], [address] LIPASE 92 U/L (Normal) Range: 73-393 39-Qsp-378733:19 Amylase (92044) Comments: Order Date: 02/23/18Order Info: 0786- 1 - CMPOrder Info: 1798-8 - AMYOrder Info: 3040-3 - LIPASEThe [facility] [address]zerjx[address] [place], [address] ARIAN 27 U/L (Normal) Range: 25-115 7-Dlq-669480:15 Amylase Comments: CMP, CBCD IS FOR DR ORONA IS FOR [facility] Vdmnjomove[address] [place], [address] ARIAN 29 U/L (Normal) Range: 25-115 6-Oea-720384:15 CBC W/Diff, Automated Comments: CMP, CBCD IS FOR DR ORONA IS FOR [facility] [address]nnpattabw[address] [place], [id number] ANISO 1+ (Normal) Absolute Lymph 0.41 {X10_3/ul} [...] 4.2-5.4 WBC 5.3 K/mm3 (Normal) Range: 4.4-11.0 0-Scd-086844:15 Comprehensive Metabolic Profil Comments: CMP, CBCD IS FOR DR COLÓNT IS [facility] Vniziiclxq2040 [facility], [place], [address] GAP 9 (Normal) Range: 5-15 CO2 27.0 [...] criteria.Please note revised GLUCOSE reference range /02/2018. 4-Aig-338724:15 Digoxin Level Comments: CMP, CBCD IS FOR DR ORONA IS FOR [facility] [address] [place], [place], [address] DIG 0.92 ng/mL (Normal) Range: 0.80-2.00 0-Ctx-448250:15 Lipase Comments: KEVIN, CBCD IS FOR DR ORONA IS FOR [facility] Abwxppkzip[address] [place], [place], [address] LIPASE 101 U/L (Normal) Range: 73-393 7-Zmy-725839:15 Lipid Profile Comments: KEVIN, CBCD IS FOR DR ORONA IS FOR [facility] Mtgwdurdcz[address] [place], [place], [address] VLDL 15 mg/dL (Normal) Range: 5-40 LDL [...] 200-240 mg/dL Borderline >240 mg/dL High Risk 5-Pil-980461:15 Magnesium Comments: CMP, CBCD IS FOR DR ORONA IS FOR [facility] [address] [place], [address] MG 1.8 mg/dL (Normal) Range: 1.6-2.6 4-Zsm-775256:15 Microalb:Creat Ratio,Random UR Comments: CMP, CBCD IS FOR DR ORONA IS FOR [facility] [address]df[address] [place], [address] MALB:CREAT 34.3 {mg/g_CRE} (Abnormal) MICROALBUMIN,UR 58.6 mg/L (Normal) UR CREAT 171.00 mg/dL (Normal) 2-Utz-586802:15 Thyroid Stim Hormone (TSH) Comments: CMP, CBCD IS FOR DR ORONA IS FOR [facility] [address] [place], [address] TSH 1.84 {uIU/mL} (Normal) Range: 0.358-3.74 2-Tgg-733048:15 Vitamin B12 383 pg/mL (Normal) Comments: CMP, CBCD IS FOR DR ORONA IS FOR [facility] Radfwhqsea[address] [place], [address] Range: 211-911 0-Hto-190379:15 Vitamin D,25 Hydroxy Comments: CMP, CBCD IS FOR DR ORONA IS FOR [facility] [address] [place], [address] Vitamin D 25-OH 72.0 ng/mL (Normal) Range: 29.95-100.01 Comments: Vitamin D 25(OH) Status Range Deficiency <20 ng/mL (50nmol/L) Insuffciency 20 - 30 ng/mL (50 - 75 nmol/L) Sufficiency 30 - 100 ng/mL (75 - 250 nmol/L) Toxicity >100 ng/mL (>250 nmol/L) 25-Fpn-597305:14 Blood Glucose , Office (51325) Blood Glucose , Office 137 (Normal) 35-Kxr-328600:14 HgA1C , Office (13640) HgA1C , Office 6.1 % (Normal) Range: 4.6 - 7.1 :35 CBC W/Diff, Automated Comments: [facility] [address]tidg[address] [place], [place], [address] Absolute Lymph 1.30 {X10_3/ul} (Normal) Range: 0.83-4.51 [...] Metabolic Profil Comments: Reason for Laboratory Test OVThe [facility] Figtrwaahj67[address] [place], [place], [address] GAP 8 (Normal) Range: 5-15 CO2 31.0 mmol/L (Normal) Range: 21.0-32.0 CL 99 mmol/L (Normal) Range: 98-107 K 3.4 mmol/L (Abnormal) Range: 3.5-5.1 NA 138 mmol/L (Normal) Range: 136-145 T BILI 0.70 mg/dL (Normal) Range: 0.20-1.00 ALT 27 U/L (Normal) Range: 13-56 Comments: Please note revised ALT reference range vgbjmaqhj83/28/2018. ALK P 102 U/L (Normal) Range: 45-117 [...] A.D.A. criteria.Please note revised GLUCOSE reference range ovkvrjruh81/02/2018. 71-Cpx-09685:33 LDH 198 U/L (Normal) Comments: Reason for Laboratory Test OVSerial Specimen #1, #2 or #3? [facility] [address]qwry[address] [place], [address] Range: 84-246 85-Sxr-657692:15 Culture, Urine Comments: [facility] [address] [place], [place], [address] CUUR See Note (Normal) Comments: VERBAL ORDER DR. IRVIN'S OFFICE Urine CultureORGANISM 1: Mixed Gram Positive OrganismsColony Count 11,000-25,000MIX CULTURE Mixed contaminants. Submit a new specimen if indicated. 86-Ohw-632225:11 CBC W/Diff, Automated Comments: [facility] [address]ub[address] [place], [place], [address] Absolute Lymph 1.34 {X10_3/ul} (Normal) Range: 0.83-4.51 [...] 4.2-5.4 WBC 5.4 K/mm3 (Normal) Range: 4.4-11.0 54-Oie-568730:11 Comprehensive Metabolic Profil Comments: Comments: [facility] Prlmvdwmiv[address] [place], [address] GAP 7 (Normal) Range: 5-15 CO2 28.0 mmol/L (Normal) Range: 21.0-32.0 CL 100 mmol/L (Normal) Range: 98-107 K 3.9 mmol/L (Normal) Range: 3.5-5.1 NA 135 mmol/L (Abnormal) Range: 136-145 T BILI 0.70 mg/dL (Normal) Range: 0.20-1.00 ALT 31 U/L (Normal) Range: 13-56 Comments: Please note revised ALT reference range pfuzrbgyz43/28/2018. ALK P 110 U/L (Normal) Range: 45-117 [...] A.D.A. criteria.Please note revised GLUCOSE reference range ehxjnitxq50/02/2018. 59-Ijl-616621:10 Urinalysis, Complete Comments: ORDERED UACDR.JACINDA ORDERED CMP AND CBCDComments: clean catchComments: clean catchHow was Urine Obtained? [employer] SUPERVISOR TO SPECIFYThe [facility] Hospital [address] [place], [address] MUCUS, URINE RARE {/hpf} (Normal) [...] (Normal) CLARITY Cloudy (Normal) COLOR Yellow (Normal) 8-Zyn-617648:42 ,Serum,hCG Quali. Comments: Comments: use blood in [facility] Zzfacgelpv97[address] [place], [address] HCGSQUAL NEGATIVE {Negative} (Normal) Range: 0-9 Nonpreg HCG Qual triggr 2 m[iU]/mL (Normal) 8-Cyh-177863:41 Basic Metabolic Profile (BMP) Comments: [facility] Sw[address] [place], [address] GAP 10 (Normal) Range: 5-15 [...] A.D.A. criteria.Please note revised GLUCOSE reference range fcgcfcwaz82/02/2018. 6-Llo-412460:41 CBC-Complete Blood Cnt No Diff Comments: [facility] [address] [place], [place], [address] MPV 9.6 fL (Normal) Range: 6.2-12.0 PLT [...] 4.2-5.4 WBC 8.7 K/mm3 (Normal) Range: 4.4-11.0 0-Ybr-091434:41 Prothrombin Time w/INR Comments: [facility] [address] [place], [place], [address] INR 1.0 (Normal) PROTIME 12.9 s (Normal) Range: 11.7-14.9 03-Nov-20179:00 Culture, Urine Comments: [facility] [address] [place], [place], [address] CUUR See Note (Normal) Comments: Urine CultureORGANISM [...] &lt ;=20 S(NF) indicates non-formulary drug at [facility]. Approval by Infectious Disease Specialist required before non- formulary drugs may be ordered and/or dispensed. :27 AFP, Tumor Marker Comments: Is Patient ? NPatient's Weight (LBS.): 124Number of Fetuses: 0[facility] (refer to report for specific site)refer to report for address and phone number AFP TUMOR 2253 6.8 ng/mL (Normal) Range: 0.0-8.3 Comments: [employer] ECLIA methodologyPerformed at: [facility] [employer] [address] [id number] Director: Omar Hood PhD, Phone: [phone] :[phone] CBC W/Diff, Automated Comments: [facility] [address] [place], [place], [address] Absolute Lymph 1.47 {X10_3/ul} (Normal) Range: 0.83-4.51 [...] 4.2-5.4 WBC 6.0 K/mm3 (Normal) Range: 4.4-11.0 42-Fvb-14825:27 Comprehensive Metabolic Profil Comments: [facility] V[address]wpmysfl64[address] [place], [place], [address] GAP 9 (Normal) Range: 5-15 CO2 28.0 [...] Range: 70-110 :27 Microalb:Creat Ratio,Random UR Comments: [facility] [address] [place], [place], [address] MALB:CREAT 17.4 {mg/g_CRE} (Normal) MICROALBUMIN,UR 37.5 mg/L (Normal) UR CREAT 215.00 mg/dL (Normal) :40 CBC W/Diff, Automated Comments: [facility] [address] [place], [place], [address] Absolute Lymph 1.60 {X10_3/ul} (Normal) Range: 0.83-4.51 [...] 4.2-5.4 WBC 10.9 K/mm3 (Normal) Range: 4.4-11.0 38-Amt-89680:39 Comprehensive Metabolic Profil Comments: Order Date: 12/06/16Order Info: 0786-1 - *CMP Complete Metabolic PanelWPeoples Hospital Tjkvxsbprs0232 [place], [place], [address] GAP 10 (Normal) Range: 5-15 CO2 27.0 [...] per A.D.A. criteria. :15 Culture, Urine Comments: [facility] [address] [place], [place], [address] CUUR See Note (Normal) Comments: Urine CultureORGANISM [...] $ <=20 S(NF) indicates non-formulary drug at [facility]. Approval by Infectious Disease Specialist required before non-formulary drugs may be ordered and/or dispensed. :35 HgA1C , Office (30856) HgA1C , Office 6.5 % (Normal) Range: 4.6 - 7.1 :07 AFP, Tumor Marker Comments: Is Patient ? [facility] (refer to report for specific site)refer to report for address and phone number AFP TUMOR 2253 8.5 ng/mL (Abnormal) Range: 0.0-8.3 Comments: [employer] ECLIA methodologyPerformed at: [employer] [facility] [address] [id number] Director: Omar Hood PhD, Phone: [phone] :[phone] CBC W/Diff, Automated Comments: [facility] [address] [place], [address] Absolute Lymph 1.17 {X10_3/ul} (Normal) Range: 0.83-4.51 [...] Range: 4.4-11.0 31-May-20179:07 Comprehensive Metabolic Profil Comments: [facility] [address]gt[address] [place], [address] GAP 9 (Normal) Range: 5-15 CO2 28.0 [...] the [place] Food and Drug Administration.Performed at: [place] [id number] [place] [id number] Director: Zia Jarvis MD, Phone: [phone] INS RES/DIAB RK . (Normal) LDL SIZE [...] . (Normal) 31-May-20179:07 Vitamin D,25 Hydroxy Comments: [facility] [address]tndm[address] [place], [place], [address] Vitamin D 25-OH 61.8 ng/mL (Normal) Comments: Vitamin D 25(OH) Status Range Deficiency <20 ng/mL (50nmol/L) Insuffciency 20 - 30 ng/mL (50 - 75 nmol/L) Sufficiency 30 - 100 ng/mL (75 - 250 nmol/L) Toxicity >100 ng/mL (>250 nmol/L) :48 Liver Profile Comments: [facility] Foxvy[address]qct[address] [place], [address] D BILI 0.14 mg/dL (Normal) Range: 0.00-0.30 T BILI 0.50 mg/dL (Normal) Range: 0.20-1.00 ALT 57 U/L (Normal) Range: 12-78 ALK P 94 U/L (Normal) Range: 45-117 AST 40 U/L (Abnormal) Range: 15-37 GLOB 2.8 g/dL (Normal) Range: 2.3-3.5 ALB 3.9 g/dL (Normal) Range: 3.4-5.0 T PROT 6.7 g/dL (Normal) Range: 6.4-8.2 :45 Potassium Comments: [facility] [address]avwkzfov[address] [place], [address] K 4.3 mmol/L (Normal) Range: 3.5-5.1 :35 CBC W/Diff, Automated Comments: [facility] [address]nlz[address] [place], [place], [address] Absolute Lymph 1.24 {X10_3/ul} (Normal) Range: 0.83-4.51 [...] 4.2-5.4 WBC 3.6 K/mm3 (Abnormal) Range: 4.4-11.0 80-Egm-83530:35 Comprehensive Metabolic Profil Comments: [facility] [address]af[address]17 [place], [address] GAP 10 (Normal) Range: 5-15 CO2 31.0 [...] ASPIRATION (SLIDES ONLY) See Note (Normal) Comments: [facility] [address] [place], [address] 0 Comments: Patient: IFEOMA ASHRAF : 1965 (52/F) Acct Num: [id number] Phys: Janelle KING,Alejandro Unit Num: [id number] Loc: LABSPEC Specimen: [id number] Received: 03/18/17 - 1126 Spec Ty pe: ASPIRATION TISSUES TISSUES: COMMENT Correlation with clinical, radiologic findings and appropriate follow up are necessary. CYTOLOGY GROSS Received are ten smears labeled wi th the patient's name and designated per the requisition as left thyroid FNA. Submitted for staining. / 03/18/17 TC:5 CPT: 48595 CYTOLOGY STUDY Slides are reviewed. The specimen [...] <signature on file> 01-Mar-20179:30 HEPATITIS C ANTIBODY (81335) Comments: PATIENT NOT FASTINGPERFORMED BY: [facility]6370 [facility] [id number] Hep C Virus Ab <0.1 {s/co_ratio} (Normal) Range: 0.0-0.9 Comments: Negative: < 0.8 Indeterminate: 0.8 - 0.9 Positive: > 0.9 . The CDC recommends that a positive HCV antibody result be followed up with a HCV Nucleic Acid Amplification test (303553). :30 Potassium Serum (83821) Comments: PATIENT NOT FASTINGPERFORMED BY: [facility]6370 [facility] [id number] Potassium, Serum 4.8 mmol/L (Normal) Range: 3.5-5.2 :29 HgA1C , Office (90578) HgA1C , Office 7.9 % (Abnormal) Range: 4.6 - 7.1 :53 CBC W/Diff, Automated Comments: [facility] [address] [place], [place], [address] Absolute Lymph 1.57 {X10_3/ul} (Normal) Range: 0.83-4.51 [...] 4.2-5.4 WBC 4.8 K/mm3 (Normal) Range: 4.4-11.0 74-Iao-82757:53 Comprehensive Metabolic Profil Comments: [facility] [address] [place], [address] GAP 11 (Normal) Range: 5-15 CO2 32.0 [...] per A.D.A. criteria. :53 Lipid Profile Comments: [facility] Q[address]so[address]ajb[address] [place], [address] VLDL 37 mg/dL (Normal) Range: 5-40 [...] High Risk :53 Microalb:Creat Ratio,Random UR Comments: [facility] [address] [place], [address] MALB:CREAT 19.7 {mg/g_CRE} (Normal) MICROALBUMIN,UR 27.8 mg/L (Normal) UR CREAT 141.00 mg/dL (Normal) :53 Thyroid Stim Hormone (TSH) Comments: [facility] [address] [place], [address] TSH 2.39 {uIU/mL} (Normal) Range: 0.358-3.74 :53 Vitamin D,25 Hydroxy Comments: [facility] [address] [place], [address] Vitamin D 25-OH 79.9 ng/mL (Normal) Comments: Vitamin D 25(OH) Status Range Deficiency <20 ng/mL (50nmol/L) Insuffciency 20 - 30 ng/mL (50 - 75 nmol/L) Sufficiency 30 - 100 ng/mL (75 - 250 nmol/L) Toxicity >100 ng/mL (>250 nmol/L) 23-Pro-105754:08 CBC W/Diff, Automated Comments: [facility] [address] [place], [place], [address] Absolute Lymph 2.04 {X10_3/ul} (Normal) Range: 0.83-4.51 [...] 4.2-5.4 WBC 9.0 K/mm3 (Normal) Range: 4.4-11.0 77-Tkv-289126:08 Comprehensive Metabolic Profil Comments: [facility] [address]qsq[address] [place], [place], [address] GAP 9 (Normal) Range: 5-15 CO2 27.0 [...] 126 mg/dLsuggests DIABETES MELLITUS per A.D.A. criteria. 95-Lnn-152133:00 Culture, Urine Comments: [facility] [address]rej[address] [place], [address] CUUR See Note (Normal) Comments: Urine CultureORGANISM 1: Mixed Gram Positive OrganismsColony Count >100,000MIX CULTURE Mixed contaminants. Submit a new specimen if indicated. 9-Uiz-919626:25 CBC W/Diff, Auto - EPLAB Comments: At [facility] Oncologypatients receive CBC w/auto Differential ONLY. Physicianwill place an order for a manual differential or Pathologistreview at his discretion. [facility]. [address] [place] [address] MOTION PI[employer]URE EQUIPMENT SUPERVISOR: MATEO CASTANEDA DO PH:[phone] [facility] Hospital [address]idq26[address] [place], [address] Absolute Lymph 1.42 {X10_3/uL} (Normal) Range: [...] 4.2-5.4 WBC 6.3 K/mm3 (Normal) Range: 4.4-11.0 1-Loc-627452:25 Comprehensive Metabolic Profil Comments: Order Date: 06/07/16Order Date: 06/07/16Serial Specimen #1, #2 or #3? 1[facility] [address]rhl5[address] [place], [address] GAP 11 (Normal) Range: 5-15 CO2 [...] 200 mg/dLsuggests DIABETES MELLITUS per A.D.A. criteria. 5-Ryp-351147:25 LDH 208 U/L (Normal) Comments: Order Date: 06/07/16Order Date: 16Serial Specimen #1, #2 or #3? [address] [place] [address] Entiqcvxur[address] [facility] [place], [place], [address] Range: 84-246 4-Lyc-561467:25 Uric Acid Comments: Order Date: 06/07/16Order Date: 16Serial Specimen #1, #2 or #3? [address] [place] [address] [address] [place], [place], [address] URIC 3.8 mg/dL (Normal) Range: 2.6-6.0 Comments: The drugs N-Acetylcysteine and Metamizole may falsely deressthis assay. :10 HgA1C , Office (46402) HgA1C , Office 8.0 % (Abnormal) Range: 4.6 - 7.1 :10 Blood Glucose , Office (83240) Blood Glucose , Office 223 (Normal) :24 AFP, Tumor Marker Comments: Is Patient ? [facility] (refer to report for specific site)refer to report for address and phone number AFP TUMOR 2253 8.5 ng/mL (Abnormal) Range: 0.0-8.3 Comments: [employer] ECLIA methodologyPerformed at: [employer] [address] [id number] Director: Omar Hood PhD, Phone: [phone] :[phone] CBC W/Diff, Automated Comments: [facility] [address]qu[address]kez[address] [place], [place], [address] Absolute Lymph 1.35 {X10_3/ul} (Normal) Range: 0.83-4.51 [...] Range: 4.4-11.0 :24 Comprehensive Metabolic Profil Comments: [facility] [address] [place], [place], [address] GAP 9 (Normal) Range: 5-15 CO2 27.0 [...] 126 mg/dLsuggests DIABETES MELLITUS per A.D.A. criteria. 41-Ivo-96714:24 NMR Lipoprofile Comments: [facility] (refer to report for specific site)refer to [...] the [place] Food and Drug Administration.Performed at: [address] [id number] Director: Zia Jarvis MD, Phone: [phone] INS RES/DIAB RK . (Normal) LDL SIZE [...] mg/dL (Normal) Range: 100-199 LIPIDS . (Normal) 58-Zui-058588:53 CBC W/Diff, Automated Comments: [facility] [address]fg[address]rcmg[address] [place], [place], [address] Absolute Lymph 1.41 {X10_3/ul} (Normal) Range: 0.83-4.51 [...] 4.2-5.4 WBC 12.2 K/mm3 (Abnormal) Range: 4.4-11.0 47-Ivh-457243:53 Comprehensive Metabolic Profil Comments: [facility] [address]qmp[address] [place], [place], [address] GAP 13 (Normal) Range: 5-15 CO2 24.0 [...] A.D.A. criteria. :42 CBC W/Diff, Automated Comments: [facility] [address]se[address] [place], [place], [address] Absolute Lymph 1.92 {X10_3/ul} (Normal) Range: 0.83-4.51 [...] Range: 4.4-11.0 :42 Comprehensive Metabolic Profil Comments: [facility] [address]mekfc[address] [place], [place], [address] GAP 11 (Normal) Range: 5-15 CO2 25.0 [...] :55 Magnesium Comments: Order Date: 06/07/16Order Date: 06/07/16[facility] [address] [place], [place], [address] MG 2.0 mg/dL (Normal) Range: 1.8-2.4 :57 CBC W/Diff, Auto - EPLAB Comments: At [facility] Medical Oncologypatients receive CBC w/auto Differential ONLY. Physicianwill place an order for a manual differential or Pathologistreview at his discretion. [facility]. [address] [place] [address] [employer]ION PI[employer]URE EQUIPMENT SUPERVISOR: MATEO CASTANEDA DO PH:[phone] [facility] Hospital [address]jjxdrtav[address] [place], [place], [address] Absolute Lymph 1.38 {X10_3/uL} (Normal) Range: 0.83-4.51 [...] Profil Comments: Order Date: 06/07/16OV Order #: [id number] Specimen #1, #2 or #3? 1 [id number] [facility] Rkakfcrrti[address] [place], [place], [address] GAP 13 (Normal) Range: 5-15 CO2 24.0 [...] (Normal) Comments: Order Date: 06/07/16 Order #: [id number] Specimen #1, #2 or #3? [address] [place] [id number] [place], [address] Range: 84-246 :56 Magnesium Comments: Order Date: 06/07/16OV Order #: [id number] Specimen #1, #2 or #3? [id number] [place] [id number] [place], [address] MG 1.5 mg/dL (Abnormal) Range: 1.8-2.4 :56 Uric Acid Comments: Order Date: 06/07/16OV Order #: [id number] Specimen #1, #2 or #3? [address] [place] [id number] [place], [place], [phone] URIC 4.8 mg/dL (Normal) Range: 2.6-6.0 Comments: The drugs N-Acetylcysteine and Metamizole may falsely deressthis assay. :30 Liver Profile Comments: [facility] [id number] [place], [address] D BILI 0.13 mg/dL (Normal) [...] WBC Comments: PATIENT NOT FASTINGPERFORMED BY: [facility] Ijvhcp1611 [facility] [id number] Information: NURSE DRAW (74074) Immature Grans (Abs) 0.0 {x10E3/uL} (Normal) Range: [...] COMPREHENSIVE Comments: PATIENT NOT FASTINGPERFORMED BY: [facility] Ruactn5520 [facility] [id number] (63401) ALT (SGPT) 41 [iU]/L (Abnormal) Range: 0-32 [...] (Abnormal) Range: 65-99 :09 HgA1C , Office (09452) HgA1C , Office 7.0 % (Normal) Range: 4.6 - 7.1 :14 AFP, Tumor Marker Comments: Is Patient ? [facility] (refer to report for specific site)refer to report for address and phone number AFP TUMOR 2253 7.7 ng/mL (Normal) Range: 0.0-8.3 Comments: [employer] ECLIA methodologyPerformed at: [employer] [facility] [address] [id number] Director: Omar Hood PhD, Phone: [phone] :[phone] CBC W/Diff, Automated Comments: [facility] [address] [place] [address], [address] ; will review on 05/17 Absolute [...] Range: 4.4-11.0 :14 Comprehensive Metabolic Profil Comments: [facility] [address]omjv[address] [place], [address] GAP 7 (Normal) Range: 5-15 CO2 28.0 [...] per A.D.A. criteria. :14 Lipid Profile Comments: [facility] Jjwljnxskq[address] [place], [phone] VLDL 36 mg/dL (Normal) Range: 5-40 LDL [...] High Risk :14 Microalb:Creat Ratio,Random UR Comments: [facility] [address] [place], [id number] ; will review on 05/17 MALB:CREAT 14.6 {mg/g_CRE} (Normal) MICROALBUMIN,UR 23.4 mg/L (Normal) UR CREAT 160.00 mg/dL (Normal) :14 Thyroid Stim Hormone (TSH) Comments: [facility] [address] [place], [address] TSH 1.89 {uIU/mL} (Normal) Range: 0.358-3.74 :14 Vitamin D,25 Hydroxy Comments: [facility] Xssjtpzcgr[address] [place], [id number] ; will review on 05/17 Vitamin D 25-OH 53.2 ng/mL (Normal) Comments: Vitamin D 25(OH) Status Range Deficiency <20 ng/mL (50nmol/L) Insuffciency 20 - 30 ng/mL (50 - 75 nmol/L) Sufficiency 30 - 100 ng/mL (75 - 250 nmol/L) Toxicity >100 ng/mL (>250 nmol/L) :23 CBC W/Diff, Automated Comments: [facility] [address]mi[address] [place], [place], [address] Absolute Lymph 1.65 {X10_3/ul} (Normal) Range: 0.83-4.51 [...] Range: 4.4-11.0 :23 Comprehensive Metabolic Profil Comments: [facility] Oxerm[address]qut[address] [place], [place], [address] GAP 9 (Normal) Range: 5-15 CO2 30.0 [...] 126 mg/dLsuggests DIABETES MELLITUS per A.D.A. criteria. 99-Ojb-586062:07 HgA1C , Office (90428) HgA1C , Office 8.5 % (Abnormal) Range: 4.6 - 7.1 :15 CBC W/Diff, Automated Comments: [facility] Lfobtewivn[address] [place], [place], [phone] Absolute Lymph 1.76 {X10_3/ul} (Normal) Range: 0.83-4.51 [...] 4.2-5.4 WBC 6.7 K/mm3 (Normal) Range: 4.4-11.0 73-Xif-35582:15 Comprehensive Metabolic Profil Comments: [facility] Nyxpabcccx0419 [address] [place], [place], [address] GAP 13 (Normal) Range: 5-15 CO2 23.0 [...] per A.D.A. criteria. :15 Lipid Profile Comments: [facility] Rkevucosse0394 [facility] [place], [address] VLDL 45 mg/dL (Abnormal) Range: [...] High Risk :15 Vitamin D,25 Hydroxy Comments: [facility] Vesklzvvsl7045 [facility] [address] [place], [place], [id number] Vitamin D 25-OH 28.8 ng/mL (Normal) Comments: Vitamin D 25(OH) Status Range Deficiency <20 ng/mL (50nmol/L) Insuffciency 20 - 30 ng/mL (50 - 75 nmol/L) Sufficiency 30 - 100 ng/mL (75 - 250 nmol/L) Toxicity >100 ng/mL (>250 nmol/L); ADDENDA: non-emergent till apt :35 CBC W/Diff, Automated Comments: [facility] [address] [place], [place], [address] Absolute Lymph 1.26 {X10_3/ul} (Normal) Range: 0.83-4.51 [...] Range: 4.4-11.0 :35 Comprehensive Metabolic Profil Comments: [facility] [address] [place], [place], [address] GAP 14 (Normal) Range: 5-15 CO2 26.0 [...] 200 mg/dLsuggests DIABETES MELLITUS per A.D.A. criteria. 78-Jxd-66074:0 ASPIRATION (SLIDES ONLY) See Note (Normal) Comments: [facility] [address]ui[address] [place], [place], [phone] 0 Comments: Patient: IFEOMA ASHRAF : 1965 (50/F) Acct Num: [id number] Phys: Alejandro Luis MD Unit Num: [id number] Loc: [facility] Specimen: [id number] Received: 01/06/16 - 1129 Spec Ty pe: ASPIRATION TISSUES TISSUES: COMMENT Correlation with clinical, radiologic findings and appropriate follow up are necessary. CYTOLOGY GROSS Received are 10 smears labeled wit h the patient's name and designated per the requisition as fine needle aspiration left thyroid. Submitted for staining. 01/06/16 TC:5 CPT:18743 CYTOLOGY STUDY Slides are reviewed. The spe [...] Signed Toni Yepez 01/07/16 <signature on file> 1-Sxo-064038:29 CBC W/Diff, Auto - EPLAB Comments: At [facility] Oncologypatients receive CBC w/auto Differential ONLY. Physicianwill place an order for a manual differential or Pathologistreview at his discretion. [facility] OUTPATIENT [facility]. [address] [place] [address] MOTION PI[employer]URE EQUIPMENT SUPERVISOR: MATEO CASTANEDA DO PH:[phone] [facility] Hospital [address]gkpet4[address] [place], [address] Absolute Lymph 1.49 {X10_3/uL} (Normal) Range: 0.83-4.51 [...] 4.2-5.4 WBC 4.6 K/mm3 (Normal) Range: 4.4-11.0 9-Qlt-815450:28 Comprehensive Metabolic Profil Comments: Serial Specimen #1, #2 or #3? 1[facility] [address]atx[address] [place], [place], [address] GAP 8 (Normal) Range: 5-15 CO2 26.0 [...] 126 mg/dLsuggests DIABETES MELLITUS per A.D.A. criteria. 2-Qvp-202184:28 LDH 213 U/L (Normal) Comments: Serial Specimen #1, #2 or #3? 1[facility] Ig[address]ph[address] [place], [address] Range: 84-246 8-Prs-542875:28 Magnesium Comments: Serial Specimen #1, #2 or #3? 1[facility] Xf[address]uyazcp59[address] [place], [address] MG 1.6 mg/dL (Abnormal) Range: 1.8-2.4 :28 Uric Acid Comments: Serial Specimen #1, #2 or #3? 1[facility] Qmdcqhyqkg2823 [place] [place], [address] URIC 4.8 mg/dL (Normal) Range: 2.6-6.0 26-Nov-20159:36 Miscellaneous Lab Procedure Comments: Comments: [id number] URINE TOX,RUN LOWEST TESTTest(s) Ordered: [id number] URINE TOX,RUN LOWEST TESTThe [facility] Hospital [address]qdnhod47[address] [place], [address] [facility] Comments: [id number] 6+OXYCODONE-BUND (ng/mL)DRUG RESULT SCREEN CUTOFF____ Amphetamines,Urine Negat LAB (Normal) scott ng/mL 1000Amphetamine test includes Amphetamine and Methamphetamine.Barbiturates Negative ng/mL 200Benzodiazepines Negative ng/mL 200Cannabinoid TEST Negative ng/mL 20Cocaine (Metab) Negative ng/mL 300Opiates Positive ng/mL 300 Opiates test includes Codeine, Morphine, Hydromorphone, [place] codone.Please Note:Confirmation performed by Mass SpectrometryCodeine NegativeMorphine NegativeHydromorphone NegativeHydrocodone Positive Hydrocodone Confirm 1950 ng/mL 300Oxycodone/Oxymorphone,Urine Negative ng/mL 300 Test includes Oxydodone and Oxymorphone. TESTI NG PERFORMED AT [facility]. ORIGINAL REPORT ON FILE IN LAB CONTAINS ADDITIONAL TEST SITE INFORMATION. :36 Urine Drug Screen (VISTA) Comments: Comments: [id number] URINE TOX,RUN LOWEST TESTList of Drugs Taken or Suspected? UNKNOWNThe [facility] [address]ktwvuigp[address] [place] [address], [phone] ; ordered by Basali THC NEGATIVE (Normal) [...] TESTING MUST BE ORDERED SEPARATELY. USE TESTMNEMONIC: [facility] [[email or web address]] 43-Xoj-370947:20 HgA1C , Office (57485) HgA1C , Office 7.3 % (Abnormal) Range: 4.6 - 7.1 :13 AFP, Tumor Marker Comments: Is Patient ? [facility] (refer to report for specific site)refer to report for address and phone number AFP TUMOR 2253 6.4 ng/mL (Normal) Range: 0.0-8.3 Comments: [employer] ECLIA methodologyPerformed at: [facility] - [facility] [address] [id number] Director: mOar Hood PhD, Phone: [phone] :[phone] CBC W/Diff, Automated Comments: [facility] [address]jignsub[address] [place], [place], [address] Absolute Lymph 1.59 {X10_3/ul} (Normal) Range: 0.83-4.51 [...] Range: 4.4-11.0 :13 Comprehensive Metabolic Profil Comments: [facility] [address] [place], [place], [address] GAP 10 (Normal) Range: 5-15 CO2 24.0 [...] per A.D.A. criteria. :13 Lipid Profile Comments: [facility] Phgkukznvr[address] [place], [place], [phone] ; non-emergent and pt has a f/u [...] High Risk :13 Microalb:Creat Ratio,Random UR Comments: [facility] Ccylesoxyp[address] [place], [address] MALB:CREAT 17.0 {mg/g_CRE} (Normal) MICROALBUMIN,UR 43.7 mg/L (Normal) UR CREAT 257.00 mg/dL (Normal) :13 Thyroid Stim Hormone (TSH) Comments: [facility] [address] [place], [address] TSH 1.82 {uIU/mL} (Normal) Range: 0.358-3.74 :13 Vitamin D,25 Hydroxy Comments: [facility] [address]ov[address]xjxw[address] [place], [phone] ; will review at 11/10 appt Vitamin D 25-OH 39.8 ng/mL (Normal) Comments: Vitamin D 25(OH) Status Range Deficiency <20 ng/mL (50nmol/L) Insuffciency 20 - 30 ng/mL (50 - 75 nmol/L) Sufficiency 30 - 100 ng/mL (75 - 250 nmol/L) Toxicity >100 ng/mL (>250 nmol/L) :40 CBC W/Diff, Automated Comments: [facility] [address] [place], [address] Absolute Lymph 1.47 {X10_3/ul} (Normal) Range: [...] 4.2-5.4 WBC 4.7 K/mm3 (Normal) Range: 4.4-11.0 35-Lwk-64819:40 Comprehensive Metabolic Profil Comments: [facility] [address]uiqcd[address] [place], [place], [address] GAP 13 (Normal) Range: 5-15 CO2 24.0 [...] per A.D.A. criteria. :49 HgA1C , Office (27280) HgA1C , Office 7.8 % (Abnormal) Range: 4.6 - 7.1 :09 CBC W/Diff, Automated Comments: [facility] [address]pbjsecxwb60[address] [place], [address] Absolute Lymph 1.07 {X10_3/ul} (Normal) Range: 0.83-4.51 [...] 4.2-5.4 WBC 5.3 K/mm3 (Normal) Range: 4.4-11.0 96-Oos-442350:09 Comprehensive Metabolic Profil Comments: [facility] [address]subxl[address] [place], [place], [address] GAP 7 (Normal) Range: 5-15 CO2 28.0 [...] 200 mg/dLsuggests DIABETES MELLITUS per A.D.A. criteria. 4-Qtp-045274:42 CBC W/Diff, Automated Comments: At [facility] Medical Oncologypatients receive CBC w/auto Differential ONLY. Physicianwill place an order for a manual differential or Pathologistreview at his discretion. [facility]. [address] [place] [address] MOTION PI[employer]URE EQUIPMENT SUPERVISOR: MATEO CASTANEDA DO PH:[phone] performed at:[facility] [address]ato [address] [place], [place] [address] Absolute Lymph 1.60 {X10_3/ul} (Normal) Range: 0.83-4.51 [...] 4.2-5.4 WBC 7.0 K/mm3 (Normal) Range: 4.4-11.0 3-Mtl-661781:42 Comprehensive Metabolic Profil Comments: Serial Specimen #1, #2 or #3? 1Test performed at:[facility] [address]em[address]urp[address] [place], [place] [address] GAP 9 (Normal) Range: 5-15 CO2 25.0 [...] note revised CREATININE reference range /22/2015. BUN 20 mg/dL (Abnormal) Range: 7-18 GLU 118 mg/dL (Abnormal) Range: 70-110 Comments: Fasting Glucose result from 110 to <126 mg/dLsuggests IMPAIRED HOMEOSTASIS per A.D.A. criteria. 2-Nww-077581:42 LDH 133 U/L (Normal) Comments: Serial Specimen #1, #2 or #3? 1Test performed at:[facility] [address] [place] [address] Range: 84-246 7-Uar-497573:42 Uric Acid Comments: Serial Specimen #1, #2 or #3? 1Test performed at:[facility] K[address]vwyn[address] [place] [address] URIC 4.6 mg/dL (Normal) Range: 2.6-6.0 :02 CBC W/Diff, Automated Comments: Test performed at:[facility] [address]gasvy[address] [place] [address] ; handled by vicki Absolute Lymph 1.23 [...] 4.2-5.4 WBC 4.1 K/mm3 (Abnormal) Range: 4.4-11.0 3-Oxi-869020:02 Comprehensive Metabolic Profil Comments: Test performed at:[facility] [address]pc[address]mo[address] [place], [place] [address] GAP 12 (Normal) Range: 5-15 CO2 23.0 [...] Comments: Please note revised CREATININE reference range ckomvrecf82/22/2015. BUN 11 mg/dL (Normal) Range: 7-18 GLU 214 mg/dL (Abnormal) Range: 70-110 Comments: Glucose result greater than or equal to 200 mg/dLsuggests DIABETES MELLITUS per A.D.A. criteria. 50-Qqz-738116:49 VITAMIN B-12 (CYANOCOBALAMIN) Comments: PATIENT NOT FASTINGPERFORMED BY: LabCoAnn [facility] Forensic CenterZsxxva0748 [facility] [id number] (56110) Vitamin B12 464 pg/mL (Normal) Range: 211-946 :49 Vitamin D Hydroxy (27094) Comments: PATIENT NOT FASTINGPERFORMED BY: [facility]6370 [facility] [id number] Vitamin D, 25-Hydroxy 11.5 ng/mL (Abnormal) Range: 30.0-100.0 Comments: Vitamin D deficiency has been defined by the [place] ofUniversity [facility] Medical Centercine and an Endocrine Society practice guideline as alevel of serum 25-OH vitamin D less than 20 ng/mL (1,2).The Endocrine Society went on to further define vitamin Dinsufficiency as a level between 21 and 29 ng/mL (2).1. IOM ([place] of Medicine). 2010. Dietary reference intakes for calcium and D. [place]: The National AcademMightyNest Press.2. Sami MF, Sophie MOORE, Xiomara LARES, et al. Evaluation, treatment, and prevention of vitamin D deficiency: an Endocrine Society clinical practice guideline. JCEM. 2010; 96(7):1911-30. :49 CBC W/AUTO DIFF WBC Comments: PATIENT NOT FASTINGPERFORMED BY: [facility]6370 [facility] [id number] Information: [id number] (47807) Immature Grans (Abs) 0.0 {x10E3/uL} (Normal) Range: [...] 3.77-5.28 WBC 6.1 {x10E3/uL} (Normal) Range: 3.4-10.8 26-Zbv-327244:28 URINE GENESIS CULTURE-NITA COL Comments: PATIENT NOT FASTINGPERFORMED BY: [facility] Ahjfzb4811 [facility] [id number] Information: [facility] [id number] COUNT (08096) Antimicrobial MIHEAD (Normal) Comments: S = Susceptible; [...] Imipenem Meropenem Urine Final report (Abnormal) Culture,Comprehensive 38-Uqk-704900:24 Urinalysis, Office (71866) UA - LEUKOCYTE ESTERASE Trace (Normal) UA - NITRITE Negative (Normal) URINE UROBILINGN NITA TIMED Normal mg/dL (Normal) UA - PROTEIN 30 mg/dL (Normal) UA - PH 6 (Abnormal) UA - BLOOD Negative (Normal) UA - SPECIFIC GRAVITY 1.030 (Abnormal) UA - KETONES Moderate mg/dL (Normal) UA - BILIRUBIN Small (Normal) UA - GLUCOSE Negative (Normal) 01-Apr-20157:54 Bedside Glucose Comments: Test performed at:[facility] Cjedpmenjx7040 [facility] [place] [address] BEDSIDE GLU 129 mg/dL (Abnormal) Range: 70-110 Comments: MANAGEMENT OF PATIENT CARE PER NURSING PROTOCOL 31-Mar-20159:47 Urinalysis, Office (33175) UA - LEUKOCYTE ESTERASE Trace (Normal) UA - NITRITE Negative (Normal) URINE UROBILINGN NITA TIMED 2 mg/dL (Normal) UA - PROTEIN 300 mg/dL (Normal) UA - PH 6.0 (Normal) UA - BLOOD Hemolyzed Large (Normal) UA - SPECIFIC GRAVITY 1.030 (Abnormal) UA - KETONES 15 mg/dL (Abnormal) UA - BILIRUBIN Moderate (Normal) UA - GLUCOSE Negative (Normal) 67-Qyh-451250:57 Basic Metabolic Profile (BMP) Comments: Test performed at:[facility] [address] [place], [place] [address] GAP 11 (Normal) Range: 5-15 CO2 27.0 [...] 126 mg/dLsuggests DIABETES MELLITUS per A.D.A. criteria. 15-Xyj-973757:57 Digoxin Level Comments: Test performed at:[facility] Vlmxbfocur8545 [place] [address] DIG 1.17 ng/mL (Normal) Range: 0.80-2.00 41-Ydr-602918:57 Hemoglobin A1c Comments: Test performed at:[facility] [address] [place] [address] HGB A1C 7.0 % (Abnormal) Range: 4.2-6.3 54-Kww-829121:57 Thyroid Stim Hormone (TSH) Comments: Test performed at:[facility] [address] [place] [address] TSH 0.89 {uIU/mL} (Normal) Range: 0.358-3.74 4-Ucm-977445:17 Urine Culture,Comprehensive Comments: PATIENT NOT FASTINGPERFORMED BY: [facility]Co[facility] CenterUecctz2219 [facility] [id number] Information: [facility] [id number] Result 1 BETAGB (Abnormal) Comments: Beta hemolytic [...] 02/28/15How was Urine Obtained? CLEAN CATCHTest performed at:[facility] Fptzoogqcp2207 [place] [address] AMORPHOUS 1+ URATE (Normal) MUCUS, [...] :55 CBC W/Diff, Automated Comments: Test performed at:[facility] [address] [place] [address] Absolute Lymph 1.29 {X10_3/ul} (Normal) Range: [...] :55 Comprehensive Metabolic Profil Comments: Test performed at:[facility] [address]ptxwsbaz[address] [place], [place] [address] GAP 10 (Normal) Range: 5-15 CO2 26.0 [...] A.D.A. criteria. :55 Lipase Comments: Test performed at:[facility] [address]hicg[address] [place] [address] LIPASE 142 U/L (Normal) Range: 70-290 6-Pap-597694:40 HgA1C , Office (26905) HgA1C , Office 7.4 % (Abnormal) Range: 4.6 - 7.1 :03 CBC W/Diff, Automated Comments: Test performed at:[facility] [address]juwnjroib[address] [place] [address] Absolute Lymph 1.31 {X10_3/ul} (Normal) Range: 0.83-4.51 [...] :03 Comprehensive Metabolic Profil Comments: Test performed at:[facility] Rlesjdppkm6784 [facility]. [place], [place] [address] GAP 11 (Normal) Range: 5-15 CO2 26.0 [...] 126 mg/dLsuggests DIABETES MELLITUS per A.D.A. criteria. 46-Pea-641080:00 Culture, Urine Comments: Test performed at:[facility] Cbcedzzsdy5338 [facility] [place] [address] CUUR See Note (Normal) Comments: Urine CultureORGANISM 1: Streptococcus agalactiae (B)[place] Count 1000-10,000 Streptococcus agalactiae (B): REACTION Ampicillin $ <=0.25 S Benzylpenicillin NF <=0.06 S Ceftriaxone (other dx) $ <=0.12 S Inducable Clindamycin Resistan - Linezolid $$$$ <=2 S Vancomycin $ 0.5 S(NF) indicates non-formulary drug at [facility]. Approval by Infectious Disease Specialist required before non-formulary drugs may be ordered and/or dispensed. * CLSI guidelines does not recommend testing of cephalosporins. This interpretation is deduced from Beta-lactam/penicillin results.; ADDENDA: handled by edvin :32 CBC W/Diff, Auto - EPLAB Only Comments: At [facility] Outpatient [facility], [facility] patientsreceive CBC w/auto Differential ONLY. Physician will placean order for a manual differential or Pathologist review athis discretion. [facility]. [address] [place] [address] MOTION PICTURE EQUIPMENT SUPERVISOR: MATEO CASTANEDA DO PH:[phone] performed at:[facility] Qlvckqkqag[address] [place], [place] [phone] ; [facility] Absolute Neut 2.7 {X10_3/uL} (Normal) Range: [...] Specimen #1, #2 or #3? 1Test performed at:[facility] [address]st[address] [place], [place] [address] Range: 87-241 Comments: ADDENDA: elliott :34 TSH (14513) Comments: PATIENT WAS FASTINGPERFORMED BY: eRelyx Icppis6352 [facility] [id number] TSH 1.240 {uIU/mL} (Normal) Range: 0.450-4.500 :34 LIPID PANEL (13841) Comments: PATIENT WAS FASTINGPERFORMED BY: [facility]6370 [facility] [id number] LDL/HDL Ratio 2.6 {ratio_units} (Normal) Range: 0.0-3.2 [...] CREATININE RATIO Comments: PATIENT WAS FASTINGPERFORMED BY: LabTrefis Bvhiiz4572 [facility] [id number]; non- emergent till apt tomorrow (95906) AND (36125) Microalb/Creat Ratio 14.8 {mg/g_creat} (Normal) Range: 0.0-30.0 Microalbumin, Urine 44.5 ug/mL (Abnormal) Range: 0.0-17.0 Creatinine, Urine 301.0 mg/dL (Abnormal) Range: 15.0-278.0 :34 METABOLIC PANEL, Comments: PATIENT WAS FASTINGPERFORMED BY: [facility]CoUnion County General HospitalOsittn8718 [facility] [id number] Information: [id number] COMPREHENSIVE (78297) ALT (SGPT) 21 [iU]/L (Normal) Range: 0-32 [...] Glucose, Serum 161 mg/dL (Abnormal) Range: 65-99 4-Eop-728808:10 HgA1C , Office (04482) HgA1C , Office 7.2 % (Abnormal) Range: 4.6 - 7.1 :47 CBC W/Diff, Automated Comments: Test performed at:[facility] [address]nbcj[address] [place], [place] [address] ; Handled by Vicki Absolute Lymph 1.43 [...] 4.2-5.4 WBC 5.4 K/mm3 (Normal) Range: 4.4-11.0 27-Ror-611511:47 Comprehensive Metabolic Profil Comments: Test performed at:[facility] [address]ogjpstkn[address] [place], [place] [address] GAP 6 (Normal) Range: 5-15 CO2 30.0 [...] Microscopic Examination Comments: PATIENT NOT FASTINGPERFORMED BY: PushCallUnion County General HospitalOoxgud7246 [facility] [id number] Bacteria Few (Normal) Mucus Threads Present (Normal) Epithelial Cells (non renal) 0-10 {/hpf} (Normal) Range: 0 - 10 RBC 0-2 {/hpf} (Normal) Range: 0 - 2 WBC >30 {/hpf} (Abnormal) Range: 0 - 5 :01 Urinalysis, Routine Comments: PATIENT NOT FASTINGPERFORMED BY: PushCall Feheoa1194 [facility] [id number] Microscopic Examination See below: (Normal) Comments: Microscopic was indicated and was performed. Nitrite, Urine Negative (Normal) Urobilinogen,Semi-Qn 0.2 mg/dL (Normal) Range: 0.0-1.9 Bilirubin Negative (Normal) Occult Blood Negative (Normal) Ketones Trace (Abnormal) Glucose Negative (Normal) Protein 1+ (Abnormal) WBC Esterase 3+ (Abnormal) Appearance Turbid (Abnormal) Urine-Color Yellow (Normal) pH 6.0 (Normal) Range: 5.0-7.5 Specific [place] 1.030 (Normal) Range: 1.005-1.030 41-Toa-748712:18 CBCD ALC 1.30 {X10_3/ul} (Normal) Range: 0.83-4.51 [...] 4.2-5.4 WBC 4.5 K/mm3 (Normal) Range: 4.4-11.0 38-Any-588425:18 CMP GAP 7 (Normal) Range: 5-15 CO2 [...] mg/dLsuggests DIABETES MELLITUS per A.D.A. criteria. :01 QVKDH-QVCXAWDYWST-JIHDM (97625) Comments: PATIENT NOT FASTINGPERFORMED BY: [place] [id number] [facility] [id number] AFP, Serum, Tumor Marker 7.1 ng/mL (Normal) Range: 0.0-8.3 Comments: Khanh ECLIA methodology :01 PTT (Activated Partial Comments: PATIENT NOT FASTINGPERFORMED BY: [facility]6370 [facility] [id number] Thromboplastin Time) (87745) aPTT 25 {sec} (Normal) Range: 24-33 Comments: This test has not been validated for monitoring unfractionated heparintherapy. aPTT-based therapeutic ranges for unfractionated heparintherapy have not been established. For general guidelines onHeparin monitoring, refer to the [employer] Directory of Services. :01 PT (Prothrobim Time) (78450) Comments: PATIENT NOT FASTINGPERFORMED BY: [place] [id number] [facility] [id number] Prothrombin Time 10.4 {sec} (Normal) Range: 9.1-12.0 INR 1.0 (Normal) Range: 0.8-1.2 Comments: Reference interval is for non-anticoagulated patients. . Suggested INR therapeutic range for Vitamin K anta gonist therapy: Standard Dose (moderate intensity therapeutic range): 2.0 - 3.0 Higher intensity therapeutic range 2.5 - 3.5 :01 TSH (76575) Comments: PATIENT NOT FASTINGPERFORMED BY: LabCoAnn Klein Forensic CenterHduefe5757 [facility] [id number] TSH 1.450 {uIU/mL} (Normal) Range: 0.450-4.500 :01 CBC W/AUTO DIFF WBC Comments: PATIENT NOT FASTINGPERFORMED BY: LabCoAnn [facility]nsic CenterVodmkh1811 [facility] [id number] Information: [id number], [id number] (57885) Immature Grans (Abs) 0.0 {x10E3/uL} (Normal) Range: [...] CREATININE RATIO Comments: PATIENT NOT FASTINGPERFORMED BY: eRelyxAnn Klein Forensic CenterXcjdgb1164 [facility] [id number] (53484) AND (37383) Microalb/Creat Ratio 26.4 {mg/g_creat} (Normal) Range: 0.0-30.0 Microalbumin, Urine 96.0 ug/mL (Abnormal) Range: 0.0-17.0 Creatinine, Urine 364.2 mg/dL (Abnormal) Range: 15.0-278.0 :01 METABOLIC PANEL, COMPREHENSIVE Comments: PATIENT NOT FASTINGPERFORMED BY: eRelyx Jufmxh9604 [facility] [id number] (91976) ALT (SGPT) 19 [iU]/L (Normal) Range: 0-32 [...] mg/dL (Abnormal) Range: 65-99 :01 LIPID PANEL (26720) Comments: PATIENT NOT FASTINGPERFORMED BY: LabCoAnn [facility] CenterTqewbn3385 [facility] [id number] LDL/HDL Ratio 2.1 {ratio_units} (Normal) Range: 0.0-3.2 [...] (Normal) Range: 100-199 :19 HgA1C , Office (50783) HgA1C , Office 6.3 % (Normal) Range: 4.6 - 7.1 :11 LDH 205 U/L (Normal) Comments: Serial Specimen #1, #2 or #3? 1 Range: 87-241 74-Oua-438506:10 ECBCD ANC 3.4 {X10_3/uL} (Normal) Range: 2.0-7.7 [...] 4.2-5.4 WBC 5.3 K/mm3 (Normal) Range: 4.4-11.0 5-Twq-032098:07 CBCD ALC 1.71 {X10_3/ul} (Normal) Range: 0.83-4.51 [...] 4.2-5.4 WBC 7.0 K/mm3 (Normal) Range: 4.4-11.0 2-Bap-123918:07 CMP GAP 7 (Normal) Range: 5-15 CO2 [...] & Aerobic Comments: PATIENT NOT FASTINGPERFORMED BY: LabCo[facility] CenterZgomqu7256 [facility] [id number] Information: SRC:EMIL [id number] RIGHT EYE Culture (14326) Antimicrobial MIHEAD (Normal) Comments: S = Susceptible; [...] hours. Anaerobic Culture Final report (Normal) :57 EBSRR-LIQHNMFRMSM-HXCTC (39223) Comments: PATIENT WAS FASTINGPERFORMED BY: [employer]6370 [facility] [id number] AFP, Serum, Tumor Marker 9.2 ng/mL (Abnormal) Range: 0.0-8.3 Comments: Khanh ECLIA methodology :57 PTT (Activated Partial Comments: PATIENT WAS FASTINGPERFORMED BY: [facility]6370 [facility] [place] [id number] Thromboplastin Time) (35987) aPTT 26 {sec} (Normal) Range: 24-33 Comments: This test has not been validated for monitoring unfractionated heparintherapy. aPTT-based therapeutic ranges for unfractionated heparintherapy have not been established. For general guidelines onHeparin monitoring, refer to the [facility] Directory of Services. :57 PT (Prothrobim Time) (91954) Comments: PATIENT WAS FASTINGPERFORMED BY: eRelyxAnn [facility] Forensic CenterTvaewx0523 [facility] [id number] Prothrombin Time 10.5 {sec} (Normal) Range: 9.1-12.0 INR 1.0 (Normal) Range: 0.8-1.2 Comments: Reference interval is for non-anticoagulated patients. . Suggested INR therapeutic range for Vitamin K anta gonist therapy: Standard Dose (moderate intensity therapeutic range): 2.0 - 3.0 Higher intensity therapeutic range 2.5 - 3.5 :57 TSH (88478) Comments: PATIENT WAS FASTINGPERFORMED BY: eRelyxAnn Klein Forensic CenterCotxjw1077 [facility] [id number] TSH 3.200 {uIU/mL} (Normal) Range: 0.450-4.500 :57 CBC WITH MANUAL DIFF Comments: PATIENT WAS FASTINGPERFORMED BY: [employer]6370 [facility] [id number] Information: [id number] (81871) Immature Grans (Abs) 0.0 {x10E3/uL} (Normal) Range: [...] PANEL, COMPREHENSIVE Comments: PATIENT WAS FASTINGPERFORMED BY: LabCo[facility] CenterEbkrqg3941 [facility] [id number] (20735) ALT (SGPT) 15 [iU]/L (Normal) Range: 0-32 [...] (Abnormal) Range: 65-99 :29 HgA1C , Office (90627) HgA1C , Office 5.4 % (Normal) Range: [...] CHOL 150 mg/dL (Normal) Comments: <200 mg/dL Zbugngqtm863-175 mg/dL Borderline>240 mg/dL High Risk :50 HgA1C , Office (25043) HgA1C , Office 5.8 % (Normal) Range: [...] be sent to the patient by the regional hospital for respiratory and complex carei ty within 30 days. Approximately 10% of breast cancers are not detected by mammography. Anormal mammogram should not delay biopsy of a clinically suspiciousabnormality. Signed:Mele Santiago [facility] 2012 at 9:19:01 AM [phone] Signed GP/GP If you are the referring physician and would like to consult with theradiologist who provided this interpretation, please conta ct GabrielePedicelli, M.D. at [phone]. If this radiologist is unavailable, youwill be directed to another radiologist to assist. If you are a patient with a question regarding this report, pleaseco ntactyour referring physician directly. Professional Interpretation Provided By: [employer], Phone , These documents contain legally protected [...] on 06/15/13920 Sign by: Prashant Delgadillo MD 82-Pjt-18681:27 THYROID Radiology Report See Note Comments: STUDY: [...] Delgadillo M.D.June 15, 2013 at 2:56:26 PM [phone] Signed GP/GP If you are the referring physician and would like to consult with theradiologist who provided this interpretation, please contact Sarmad Bonilla at [phone]. If this radiologist is unavailable, youwill be directed to another radiologist to assist. If you are a patient with a question regarding this report, pleasecontactyour referring physician directly. Profes sional Interpretation Provided By: [employer], Phone , These documents contain legally protected [...] 06/15/13 1733 Sign by: Prashant Delgadillo MD 6-Kbp-915757:18 URINE GENESIS CULTURE-NITA COL Comments: PATIENT NOT FASTINGPERFORMED BY: [facility] Xhjzji5724 [facility] [id number] Information: SRC: [id number] COUNT (25479) Antimicrobial MIHEAD (Normal) Comments: S = Susceptible; [...] primarily for treating urinary tract infections. (CLSI, Y131-I45,2009) Urine Culture,Comprehensive Final report (Normal) 04-Jun-20138:48 Urinalysis, Office (20687) UA - LEUKOCYTE ESTERASE Large (Normal) UA - NITRITE Positive (Normal) URINE UROBILINGN NITA TIMED 2 mg/dL (Normal) UA - PROTEIN Negative mg/dL (Normal) UA - BLOOD Negative (Normal) UA - KETONES Moderate mg/dL (Normal) UA - BILIRUBIN Moderate (Normal) UA - GLUCOSE Small mg/dL (Normal) 05-Hqr-31479:06 MICROALBUMIN: CREATININE RATIO Comments: PATIENT WAS FASTINGPERFORMED BY: [employer] Xhquum3625 [facility] [id number] (28856) AND (87308) Microalb/Creat Ratio 27.4 {mg/g_creat} (Normal) Range: 0.0-30.0 Microalbumin, Urine 85.2 ug/mL (Abnormal) Range: 0.0-17.0 Creatinine, Urine 311.1 mg/dL (Abnormal) Range: 15.0-278.0 59-Bfs-78019:06 METABOLIC PANEL, Comments: PATIENT WAS FASTINGPERFORMED BY: [employer] Ggmtmz4354 [facility] [id number] Information: ADD [id number] AND DRAW FEE 99 5826 COMPREHENSIVE (34970) ALT (SGPT) 29 [iU]/L (Normal) Range: 0-32 [...] Glucose, Serum 76 mg/dL (Normal) Range: 65-99 68-Vep-51246:06 TSH (85668) Comments: PATIENT WAS FASTINGPERFORMED BY: [place] [id number] [facility] [id number] TSH 3.040 {uIU/mL} (Normal) Range: 0.450-4.500 :06 LIPID PANEL (83345) Comments: PATIENT WAS FASTINGPERFORMED BY: [address] [id number] LDL/HDL Ratio 2.4 {ratio_units} (Normal) Range: 0.0-3.2 HDL Cholesterol 55 mg/dL (Normal) Comments: According to ATP-III Guidelines, HDL-C >59 mg/dL is considered anegative risk factor for CHD. LDL Cholesterol Calc 134 mg/dL (Abnormal) Range: 0-99 VLDL Cholesterol Ramandeep 18 mg/dL (Normal) Range: 5-40 Cholesterol, Total 207 mg/dL (Abnormal) Range: 100-199 Triglycerides 89 mg/dL (Normal) Range: 0-149 :06 IHCTL-PYZAXADGEUZ-AJQYA (89920) Comments: PATIENT WAS FASTINGPERFORMED BY: [address] [id number] AFP, Serum, Tumor Marker 5.4 ng/mL (Normal) Range: 0.0-8.3 Comments: Khanh ECLIA methodology :06 PTT (Activated Partial Comments: PATIENT WAS FASTINGPERFORMED BY: [address] [id number] Thromboplastin Time) (46002) aPTT 27 {sec} (Normal) Range: 24-33 Comments: This test has not been validated for monitoring unfractionated heparintherapy. aPTT-based therapeutic ranges for unfractionated heparintherapy have not been established. For general guidelines onHeparin monitoring, refer to the [facility] Directory of Services. :06 PT (Prothrobim Time) (79088) Comments: PATIENT WAS FASTINGPERFORMED BY: [facility]6370 [facility] [id number] INR 1.1 (Normal) Range: 0.8-1.2 Comments: Reference interval is for non-anticoagulated patients. . Suggested INR therapeutic range for Vitamin K anta gonist therapy: Standard Dose (moderate intensity therapeutic range): 2.0 - 3.0 Higher intensity therapeutic range 2.5 - 3.5 Prothrombin Time 11.0 {sec} (Normal) Range: 9.1-12.0 :51 HgA1C , Office (97131) HgA1C , Office 5.0 % (Normal) Range: [...] mg/dL (Normal) Range: 70-110 :03 Rapid Flu (37388 x 2) Influenza A Ag positive b (Normal) :27 METABOLIC PANEL, COMPREHENSIVE Comments: PATIENT WAS FASTINGPERFORMED BY: LabCoAnn [facility] CenterGrjvvl3468 [facility] [id number] (87063) ALT (SGPT) 25 [iU]/L (Normal) Range: 0-32 [...] mg/dL (Normal) Range: 65-99 :27 LIPID PANEL (02832) Comments: PATIENT WAS FASTINGPERFORMED BY: [employer] [facility] [id number] LDL/HDL Ratio 0.9 {ratio_units} (Normal) Range: 0.0-3.2 LDL Cholesterol Calc 29 mg/dL (Normal) Range: 0-99 VLDL Cholesterol Ramandeep 17 mg/dL (Normal) Range: 5-40 HDL Cholesterol 32 mg/dL (Abnormal) Comments: According to ATP-III Guidelines, HDL-C >59 mg/dL is considered anegative risk factor for CHD. Cholesterol, Total 78 mg/dL (Abnormal) Range: 100-199 Triglycerides 84 mg/dL (Normal) Range: 0-149 :27 TSH (22151) Comments: PATIENT WAS FASTINGPERFORMED BY: [employer] Akredo [facility] [id number] TSH 3.990 {uIU/mL} (Normal) Range: 0.450-4.500 :27 CBC WITH MANUAL DIFF Comments: PATIENT WAS FASTINGPERFORMED BY: eRelyxAnn Klein Forensic CenterCkuqmi6406 [facility] [id number] Information: [id number] (29389) Immature Grans (Abs) 0.0 {x10E3/uL} Range: 0.0-0.1 [...] Comments: Khanh ECLIA methodologyPerformed at: - [facility] [address] [id number] Director: Manuelito Mendez PhD, Phone: [phone] 22-Qsd-12389:39 CBCMD ANC 2.4 3/uL (Normal) Range: 2.0-7.7 [...] CHOL 130 mg/dL (Normal) Comments: <200 mg/dL Kexiwgdgx816-549 mg/dL Borderline>240 mg/dL High Risk :39 MIACRE tMICROCREAT 16.5 {mg/g_CRE} (Normal) MIALB 23.3 mg/L (Normal) CREU 141.0 mg/dL (Normal) :39 PT INR 1.1 (Normal) PTP 13.6 s (Normal) Range: 11.9-14.4 :39 PTT PTTP 29.5 s (Normal) Range: 24.1-36.2 :17 Rapid Flu (20839 x 2) Influenza A Ag neg (Normal) :29 HgA1C , Office (39471) HgA1C , Office 5.9 % (Normal) Range: 4.6 - 7.1 :53 FT3 2.9 pg/mL (Normal) Range: 2.18-3.98 :53 T4F 1.26 ng/dL (Normal) Range: 0.76-1.46 :53 TPO 8 {IU/mL} (Normal) Range: 0-34 Comments: Performed at: - [facility] [address] [id number] Director: Codi Robles MD, Phone: [phone] 11-Bdg-848134:53 TSH 1.23 {uIU/mL} (Normal) Range: 0.358-3.74 :04 HgA1C , Office (55747) HgA1C , Office 5.8 % (Normal) Range: 4.6 - 7.1 :26 CBCMD Comments: ORDERED TSH LIPID CMP CBCMD [facility]ACINDA ORDERED VITD CMP CBCD RBCM NORM C+C [...] :26 LIPID Comments: ORDERED TSH LIPID CMP [facility] ORDERED VITD CMP CBCD VLDL [...] {uIU/mL} (Normal) Comments: ORDERED TSH LIPID CMP [facility]ITALEVELIN ORDERED VITD CMP CBCD Range: 0.358-3.74 :26 VITD 44.8 ng/mL (Normal) Comments: ORDERED TSH LIPID CMP [facility]ITALEVELINKI ORDERED VITD CMP CBCD Range: 30.0-100.0 Comments: Vitamin D deficiency has been defined by the [place] ofMedicine and an Endocrine Society practice guideline as alevel of serum 25-OH vitamin D less than 20 ng/mL (1,2).The Endocrine Society went on to further define vitamin Dinsufficiency as a level between 21 and 29 ng/mL (2).1. IOM ([place] of Medicine). 2010. Dietary reference intakes for calcium and D. [place]: The National Academies Press.2. Sami MF, Sophie MOORE, Xiomara LARES, et al. Evaluation, treatment, and prevention of vitamin D deficiency: an Endocrine Society clinical practice guideline. JCEM. 2010; 96(7): 1911-30.Performed at: [address] [id number] Director: Codi Robles MD, Phone: [phone] 27-Jan-20128:02 BILAT SCRN DIGITAL & CAD Radiology [...] Signed GP/GP Professional Interpretat ion Provided By: [facility]iology[facility], , To consult with a radiologist regarding this report, please call our [id number] line @ Dicta dani on 01/27/12 0813 by Faustina KING,GabrieleTranscribed on 01/27/12 0950 by ITS IMPORTSign by Faustina KING,Prashant on 01/27/12 0951 Sign by: Prashant Delgadillo MD 90-Gyg-215779:24 HgA1C , Office (27315) HgA1C , Office 5.7 % (Normal) Range: 4.6 - 7.1 08-Yfm-303782:24 Blood Glucose , Office (80295) Blood Glucose , Office 89 (Normal) 00-Rug-606359:31 Urinalysis, Office (84852) UA - LEUKOCYTE ESTERASE Small (Normal) UA - NITRITE Positive (Normal) URINE UROBILINGN NITA TIMED Normal mg/dL (Normal) UA - PROTEIN 300 mg/dL (Normal) UA - PH 6.0 (Normal) UA - SPECIFIC GRAVITY 1.025 (Normal) UA - KETONES Small mg/dL (Normal) UA - BILIRUBIN Moderate (Normal) UA - GLUCOSE Negative (Normal) :15 HgA1C , Office (93087) HgA1C , Office 6.8 % (Normal) Range: 4.6 - 7.1 :15 Blood Glucose , Office (79309) Blood Glucose , Office 162 (Normal) 38-Syc-965225:22 THYROID Radiology Report See Note (Normal) Comments: [...] 09/08/11 1330 Sign by: Prashant Delgadillo MD 08-Vvd-90854:59 COMP METABOLIC GAP 9 (Normal) Range: 5-15 [...] COL Comments: PATIENT NOT FASTINGPERFORMED BY: [facility] Bsupie9369 [facility] [id number] Information: SRC:UR [id number] COUNT (81751) Antimicrobial MIHEAD (Normal) Comments: S = Susceptible; [...] Final report Culture,Comprehensive (Normal) :32 Urinalysis, Office (69294) UA - LEUKOCYTE ESTERASE Moderate (Normal) URINE UROBILINGN NITA TIMED Normal mg/dL (Normal) UA - PROTEIN 100 mg/dL (Normal) UA - PH 6.0 (Normal) UA - BLOOD Hemolyzed Large (Normal) UA - SPECIFIC GRAVITY 1.025 (Normal) UA - KETONES Negative mg/dL (Normal) UA - BILIRUBIN Negative (Normal) UA - GLUCOSE Negative (Normal) :28 Blood Glucose , Office (38249) Blood Glucose , Office 223 (Normal) :10 Urinalysis, Office (39231) UA - BILIRUBIN Small (Normal) UA - BLOOD Hemolyzed Large (Normal) UA - GLUCOSE Small (Normal) Comments: 100 UA - KETONES Negative mg/dL (Normal) UA - LEUKOCYTE ESTERASE Trace (Normal) UA - NITRITE Positive (Normal) UA - PH 5.0 (Normal) UA - PROTEIN 300 mg/dL (Normal) UA - SPECIFIC GRAVITY 1.020 (Normal) URINE UROBILINGN NITA TIMED 2 mg/dL (Normal) 9-Vaa-028787:29 URINE GENESIS CULTURE-NITA COL Comments: PATIENT NOT FASTINGPERFORMED BY: [facility] Zooiwk6827 [facility] [id number] Information: SRC:UR [id number] COUNT (01528) Antimicrobial MIHEAD (Normal) Comments: S = Susceptible; [...] mL (Normal) Urine Final report (Normal) Culture,Comprehensive 7-Lbl-994601:31 Urinalysis, Office (75911) UA - BILIRUBIN Large (Normal) UA - [...] (Abnormal) Range: 0.358-3.74 :28 HgA1C , Office (27666) HgA1C , Office 8.3 % (Abnormal) Range: 4.6 - 7.1 :28 Blood Glucose , Office (44404) Blood Glucose , Office 176 (Normal) :24 [...] 200-240 mg/dL Borderline >240 mg/dL High Risk 81-Wcd-582669:54 BRAIN/HEAD W/WO CONTRAST Radiology See Note Comments: [...] Prashant Delgadillo MD :44 HgA1C , Office (98613) HgA1C , Office 7.4 % (Abnormal) Range: 4.6 - 7.1 :44 Blood Glucose , Office (25637) Blood Glucose , Office 206 (Normal) :37 [...] Report See Note (Normal) Comments: Exam Number: [id number] AMMOGRAPHY - BILATERAL SCREENING INDICATION:Routine annual screening [...] attaching a ResultCode to this exam. ADDENDUM: [id number] HPBI/MDS Reported By: PRASHANT DELGADILLO :14 HgA1C , Office (49711) HgA1C , Office 7.0 % (Normal) Range: 4.6 - 7.1 :14 Blood Glucose , Office (70845) Blood Glucose , Office 164 (Normal) :30 LASHA DIR SEMI-QL LASHA DIRECT 24 AU/mL (Normal) :30 ANTI-dsDNA AB 10 {IU/mL} (Normal) :30 TSH 6.39 {uIU/mL} (Abnormal) Range: 0.358-3.74 11-Ayp-917361:35 C-REACTIVE PROTEIN (10343) Comments: PATIENT NOT FASTINGPERFORMED BY: [facility]Co[facility] CenterNmfamt3797 [facility] [id number] C-Reactive Protein, Quant 6.5 mg/L (Abnormal) Range: 0.0-4.9 78-Qye-993008:35 SED RATE ERYTHROCYTE (93388) Comments: PATIENT NOT FASTINGPERFORMED BY: [facility]6370 [facility] [id number] Sedimentation Rate-Westergren 14 mm/h (Normal) Range: 0-20 86-Ebr-230519:35 RHEUMATOID FACTOR-QUANT (61000) Comments: PATIENT NOT FASTINGPERFORMED BY: [facility]6370 [facility] [id number] RA Latex Turbid. 7.6 {IU/mL} (Normal) Range: 0.0-13.9 20-Luf-013149:35 LASHA (ANTINUCLEAR ANTIBODY) Comments: PATIENT NOT FASTINGPERFORMED BY: [facility]6370 [facility] [id number] (17741) LASHA Direct Positive (Abnormal) :35 T3, FREE (TRIDOTHYRONINE) (38292) Comments: PATIENT NOT FASTINGPERFORMED BY: [facility]6370 [facility] [id number] Triiodothyronine,Free,Serum 2.8 pg/mL (Normal) Range: 2.0-4.4 75-Flh-033418:35 T4, FREE (THYROXINE) (34781) Comments: PATIENT NOT FASTINGPERFORMED BY: [facility]6370 [facility] [id number] T4,Free(Direct) 0.76 ng/dL (Abnormal) Range: 0.82-1.77 72-Cxq-368778:35 Anti-TPO Antibody (97647) Comments: PATIENT NOT FASTINGPERFORMED BY: [facility]6370 [facility] [id number] Thyroid Peroxidase (TPO) Ab <6 {IU/mL} (Normal) Range: 0-34 42-Nnf-572438:35 TSH (88266) Comments: PATIENT NOT FASTINGPERFORMED BY: [facility]6370 [facility] [id number] TSH 5.630 {uIU/mL} (Abnormal) Range: 0.450-4.500 Comments: Please note reference interval change 31-Ubd-903393:35 METABOLIC PANEL, Comments: PATIENT NOT FASTINGPERFORMED BY: [facility] Jwwhae3859 [facility] [id number] Information: [id number] COMPREHENSIVE (38060) ALT (SGPT) 55 [iU]/L (Abnormal) Range: 0-40 [...] Glucose, Serum 151 mg/dL (Abnormal) Range: 65-99 63-Ztn-179505:02 GENESIS CULTURE-OTHER (76787) Comments: PATIENT NOT FASTINGPERFORMED BY: REINALDO [facility] Hqwjjo0346 [facility] [id number] Information: SRC:THRT [id number] Result 1 Yeast isolated. (Normal) Comments: Moderate growthRequest for further identification must be madewithin 1 week. Upper Respiratory Culture Final report (Normal) 86-Ihl-80345:37 Rapid Strep Test, Office (86691) Rapid Strep Test, Office Negative (Normal) 93-Kof-452878:11 THYROID (HP) Radiology Report See Note (Normal) Comments: Exam Number: [id number] CLINICAL:This is a 45-year-old female patient with [...] CHOL 147 mg/dL (Normal) Comments: <200 mg/dL Yenjpymib300-361 mg/dL Borderline>240 mg/dL High Risk HDL 32 [...] :41 TSH 4.85 {uIU/mL} (Abnormal) Range: 0.358-3.74 64-Kot-167891:50 URINE GENESIS CULTURE-NITA COL Comments: PATIENT NOT FASTINGPERFORMED BY: [facility] Oovmru7282 [facility] [id number] Information: SRC:UR ADD [id number] COUNT (18874) Result 1 Klebsiella pneumoniae Comments: 1,000 Colonies/mL [...] STrimethoprim/Sulfa S Urine Final report (Normal) Culture,Comprehensive 66-Aot-99267:55 Urinalysis, Office (80980) UA - LEUKOCYTE ESTERASE Small (Normal) UA - NITRITE Negative (Normal) URINE UROBILINGN NITA TIMED Normal mg/dL (Normal) UA - PROTEIN 30 mg/dL (Normal) UA - PH 6.0 (Normal) UA - BLOOD Negative (Normal) UA - SPECIFIC GRAVITY 1.020 (Normal) UA - KETONES Negative mg/dL (Normal) UA - BILIRUBIN Negative (Normal) UA - GLUCOSE Negative (Normal) 0-Occ-154940:37 PET/CT,TUMOR,BASE-THIGH,SUBS Radiology Report See Note (Normal) Comments: Exam Number: [id number] EXAM: Body PET study Head to Mid [...] 44:398P, 2003). w Reported By: ADELA MOLINA 0-Roh-382951:00 PRANEETH+ELPU24 3467 ALBUMIN,U 37.7 % (Normal) WNQXK-2-QOVC,U 3.2 % (Normal) BAPUT-2-UJMM,U 7.6 % (Normal) BETA GLOB,U 23.1 % (Normal) GAMMA GLOB,U 28.5 % (Normal) PRANEETH RESULT,U Comment (Normal) Comments: No monoclonality detected. M-SPIKE,UR% SeeNote % (Normal) Comments: Result: Not Observed PROTEIN, U24 62.1 {mg/24_hr} Range: 30.0-150.0 (Normal) PROTEIN,UR 2.3 mg/dL (Normal) Range: 0.0-15.0 1-Gki-663462:15 C-REACTIVE PROT < 2.90 mg/L (Normal) Range: 0.0-3.0 Comments: C-Reactive Protein (CRP) provides useful information for thediagnosis, therapy and monitoring of inflammatory processesand associated diseases. For the evaluation of Relative Riskfor Cardiovascular Dise ase, a High Sensitivity CRP (HSCRP)should be ordered. 5-Rky-106656:15 CBCD,SMEAR DIFF PLT EST SeeNote (Normal) Comments: [...] 4.2-5.4 WBC 4.3 K/mm3 (Abnormal) Range: 4.4-11.0 6-Kbd-915612:15 COMP METABOLIC CL 104 mmol/L (Normal) Range: [...] <126 mg/dLsuggests IMPAIRED HOMEOSTASIS per A.D.A. criteria. 1-Wve-395746:15 ESR SED RATE 11 mm/h (Normal) Range: 0-20 9-Tmt-520347:15 LDH 197 U/L (Abnormal) Range: 100-190 8-Xyt-599030:15 LIPID HDL 30 mg/dL (Abnormal) Comments: Reference [...] CHOL 154 mg/dL (Normal) Comments: <200 mg/dL Qzzrjieuy286-876 mg/dL Borderline>240 mg/dL High Risk 5-Wpj-712234:15 PROT.[id number] NOTE Comment (Normal) Comments: Protein electrophoresis scan will follow via computer,mail, or drywall stripper delivery.Performed at: [facility] Lab[address] [id number] Director: Kamlesh Arana MD ALBUMIN,UR 54.2 % (Normal) OQJPN-4-ERLY,U 1.2 % (Normal) MRUPX-2-KXDW,U 9.4 % (Normal) BETA GLOB,U 23.4 % (Normal) GAMMA GLOB,U 11.8 % (Normal) M-SPIKE,U SeeNote % (Normal) Comments: Result: Not Observed PROTEIN,UR 13.6 mg/dL (Normal) Range: 0.0-15.0 0-Kzv-922534:15 SPE [id number] A/G RATIO 1.8 (Normal) Range: 0.7-2.0 GLOBULIN, [...] electrophoresis scan will follow via computer,mail, or drywall stripper delivery. M-SPIKE SeeNote g/dL (Normal) Comments: Result: Not Observed GAMMA GLOBULIN 0.4 g/dL (Abnormal) Range: 0.5-1.6 ALBUMIN 3.9 g/dL (Normal) Range: 3.2-5.6 ALPHA-1 GLOBUL 0.2 g/dL (Normal) Range: 0.1-0.4 ALPHA-2 GLOBUL 0.7 g/dL (Normal) Range: 0.4-1.2 BETA GLOBULIN 0.9 g/dL (Normal) Range: 0.6-1.3 PROTEIN,TOTAL 6.1 g/dL (Normal) Range: 6.0-8.5 85-Qqm-368118:28 BRAIN/HEAD WITHOUT CONTRAST Radiology Report See Note (Normal) Comments: Exam Number: [id number] CT SCAN OF BRAIN HISTORYLytic lesion, lymphoma. Scans were obtained at 2.5-mm intervals through the posterior fossaand 5-mm intervals through the remainder of the brai n. The [facility] sault entstudy is compared to the examination of [...] for confirmation. Reported By: TRUE NAGEL M.D. 89-Mxp-746247:23 SPINE,CERVICAL WITHOUT CONTRAS Radiology Report See Note (Normal) Comments: Exam Number: [id number] CLINICAL:44 year old female with cervical radiculopathy. [...] tumor involvement. Reported By: SHARYN JASMINE M.D. 74-Yoy-783259:50 Blood Glucose , Office (50135) Blood Glucose , Office 105 (Normal) 16-Wiv-353603:50 HgA1C , Office (30978) HgA1C , Office 6.1 % (Normal) Range: 4.6 - 7.1 76-Xhr-503039:24 URINE GENESIS CULTURE-NITA COL Comments: PATIENT NOT FASTINGPERFORMED BY: REINALDO [facility] Hkerat4242 [facility] [id number] Information: SRC:INGRID [id number] COUNT (71687) Antimicrobial MIHEAD (Normal) Comments: S = Susceptible; [...] mL (Normal) Urine Final report (Normal) Culture,Comprehensive 68-Xvb-398835:41 Urinalysis, Office (36807) UA - LEUKOCYTE ESTERASE Large (Normal) UA - NITRITE Negative (Normal) URINE UROBILINGN NITA TIMED Normal mg/dL (Normal) UA - PROTEIN 100 mg/dL (Normal) UA - PH 5.0 (Normal) UA - BLOOD Hemolyzed Large (Normal) UA - SPECIFIC GRAVITY 1.025 (Normal) UA - KETONES Negative mg/dL (Normal) UA - BILIRUBIN Negative (Normal) UA - GLUCOSE Negative (Normal) 6-Vyp-235598:19 BLOOD GAS, O2 SAT ONLY - INITL Radiology Report See Note (Normal) Comments: Exam Number: [id number] Procedure completed. Please see MEDICAL RECORDS reports in PCI - OP - OP NOTE LET - LETTER. Reported By: BOONE CH M.D. 7-Qwk-477353:19 BLOOD GAS, O2 SAT ONLY - SUBSQ Radiology Report See Note (Normal) Comments: Exam Number: [id number] Procedure completed. Please see MEDICAL RECORDS reports in PCI - OP - OP NOTE LET - LETTER. Reported By: BOONE CH M.D. 2-Ebc-152187:19 BLOOD GAS, O2 SAT ONLY - SUBSQ Radiology Report See Note (Normal) Comments: Exam Number: [id number] Procedure completed. Please see MEDICAL RECORDS reports in PCI - OP - OP NOTE LET - LETTER. Reported By: BOONE CH M.D. 04-Aug-20096:45 RHC/LHC/CORS/LV Radiology Report See Note (Normal) Comments: Exam Number: [id number] Procedure completed. Please see MEDICAL RECORDS reports [...] MIXED GRAM POSITIVE ORGANISMS :58 Urinalysis, Office (51415) UA - BILIRUBIN Negative (Normal) UA - BLOOD Negative (Normal) UA - GLUCOSE Negative (Normal) UA - KETONES Negative mg/dL (Normal) UA - LEUKOCYTE ESTERASE Small (Normal) Comments: aw UA - NITRITE Negative (Normal) UA - PH 6.0 (Normal) UA - PROTEIN Negative mg/dL (Normal) UA - SPECIFIC GRAVITY 1.010 (Normal) URINE UROBILINGN NITA TIMED Normal mg/dL (Normal) :53 HgA1C , Office (47119) HgA1C , Office 5.7 % (Normal) Range: 4.6 - 7.1 :53 Blood Glucose , Office (73891) Blood Glucose , Office 133 (Normal) :24 [...] (Normal) Range: 6.4-8.2 :53 HgA1C , Office (05435) HgA1C , Office 10.0 % (Abnormal) Range: 4.6 - 7.1 :53 Blood Glucose , Office (27535) Blood Glucose , Office 410 (Normal) :46 [...] 11.6-14.6 WBC 4.0 K/mm3 (Abnormal) Range: 4.4-11.0 8-Cee-219944:46 COMP METABOLIC A/G 1.2 {RATIO} (Normal) Range: [...] 200 mg/dLsuggests DIABETES MELLITUS per A.D.A. criteria. 8-Iob-746146:46 D BILI 0.12 mg/dL (Normal) Range: 0.00-0.30 6-Gqf-393543:46 LIPID CHOL 158 mg/dL (Normal) Comments: <200 [...] mg/L (Normal) UR CREAT 186.7 mg/dL (Normal) 81-Rdt-073400:11 LIPID Comments: PATIENT NOT FASTING/DEMANDED TO BE [...] T PROT 6.4 g/dL (Normal) Range: 6.4-8.2 96-Kxb-211959:23 Urinalysis, Office (14991) Comments: done BC UA - BILIRUBIN Negative (Normal) UA - BLOOD Hemolyzed Large (Normal) UA - GLUCOSE Large (Normal) Comments: > 1000mg/dL UA - KETONES Negative mg/dL (Normal) UA - LEUKOCYTE ESTERASE Moderate (Normal) UA - NITRITE Negative (Normal) UA - PH 6.0 (Normal) UA - PROTEIN 30 mg/dL (Normal) UA - SPECIFIC GRAVITY 1.010 (Normal) URINE UROBILINGN NITA TIMED Normal mg/dL (Normal) 58-Eid-998957:44 MYOCARD PERF SPECT REST/STRESS Radiology Report See Note (Normal) Comments: Exam Number: [id number] MYOCARDIAL PERFUSION SCAN TECHNIQUEThe patient was injected [...] of 37%. Reported By: NOE MORRIS M.D. 04-Fci-06944:39 SPINE, LUMBAR W/W/O CONTRAST Radiology Report See Note (Normal) Comments: Exam Number: [id number] MAGNETIC RESONANCE IMAGING OF THE LUMBAR SPINE [...] other abnormality. Reported By: SUSAN GOMEZ M.D. 34-Oby-665916:04 CULTURE, URINE URINE CULTURE See Note {CFU/mL} (Normal) Comments: COLONY COUNT 25,000-50,000 ORGANISM 1: MIXED GRAM POSITIVE ORGANISMS 57-Gcw-384806:15 Urinalysis, Office (16796) UA - LEUKOCYTE ESTERASE Small (Normal) Comments: aw UA - NITRITE Negative (Normal) UA - PH 5.0 (Normal) UA - PROTEIN Negative mg/dL (Normal) URINE UROBILINGN NITA TIMED Normal mg/dL (Normal) UA - BILIRUBIN Negative (Normal) UA - BLOOD Negative (Normal) UA - GLUCOSE Negative (Normal) UA - KETONES Negative mg/dL (Normal) UA - SPECIFIC GRAVITY 1.025 (Normal) 56-Dyz-604706:09 Blood Glucose , Office (54218) Blood Glucose , Office 231 (Normal) 92-Sav-757643:09 HgA1C , Office (59894) HgA1C , Office 7.1 % (Normal) Range: [...] for patient's is the eGFRmultiplied by 1.212. [facility] Laboratory uses the abbreviated Modification of [...] Disease W/O Kidney Disease>/= 90 Stage One Abbtnt55 - 89 Stage Two Suspect Decreased GFR30 [...] T PROT 6.5 g/dL (Normal) Range: 6.4-8.2 88-Prs-956599:42 LIPID CHOL 182 mg/dL (Normal) Comments: <200 [...] mg/dL VLDL 36 mg/dL (Normal) Range: 5-40 41-Djx-241249:42 MICROALB:CRE UR MALB:CREAT 35.4 {mg/g_CRE} (Abnormal) MICROALBUMIN,UR 54.7 mg/L (Normal) UR CREAT 154.6 mg/dL (Normal) 58-Wrr-768826:42 TSH 2.57 {uIU/mL} (Normal) Range: 0.34-4.82 :40 CULTURE, URINE URINE CULTURE See Note {CFU/mL} (Normal) Comments: COLONY COUNT 1000-10,000 ORGANISM 1: MIXED GRAM POS & NEG ORGANISMS 62-Xpy-684323:36 Urinalysis, Office (51055) UA - BILIRUBIN Negative (Normal) UA - [...] POS & NEG ORGANISMS :12 Urinalysis, Office (27062) UA - BILIRUBIN Negative (Normal) UA - BLOOD Negative (Normal) UA - GLUCOSE Negative (Normal) UA - KETONES Negative mg/dL (Normal) UA - LEUKOCYTE ESTERASE Small (Normal) UA - NITRITE Negative (Normal) UA - PH 6.0 (Normal) UA - PROTEIN Negative mg/dL (Normal) UA - SPECIFIC GRAVITY 1.005 (Normal) URINE UROBILINGN NITA TIMED Normal mg/dL (Normal) 57-Gwa-585302:08 CBCD,SMEAR DIFF CELLS COUNTED 100 (Normal) EOS [...] 47-70 WBC 5.1 K/mm3 (Normal) Range: 4.4-11.0 94-Rhb-757916:08 COMP METABOLIC A/G 1.5 {RATIO} (Normal) Range: [...] Range: 0.34-4.82 :28 Blood Glucose , Office (34327) Blood Glucose , Office 124 (Normal) :28 HgA1C , Office (77239) HgA1C , Office 6.1 % (Normal) Range: 4.6 - 7.1 :38 CERULOPLAS 1560 21.3 mg/dL (Normal) Range: 17.9-53.3 Comments: Performed At: [facility] [place] [address] [id number] :38 FERRITIN 189 ng/mL (Normal) Range: 8-252 :38 HEP-ABC 880221 HB CORE [id number] SeeNote (Normal) Comments: Result: Negative HB SURF [...] Please note reference interval change HEP A AB,T.0027 SeeNote (Normal) Comments: Result: Negative HEP A IgM 6734 SeeNote (Normal) Comments: Result: Negative HEP B CORE,TOT SeeNote (Normal) Comments: Result: Negative HVC Ab <0.1 (Normal) Range: 0.0-0.9 Comments: NegativeNot infected with HCV, unless recent infection issuspected or other evidence exists to indicate HCVinfection. AMENDED REPORT 05/21/081907 HVC Ab previously reported as: RIBA RESULT <TEST NOT PERFORMED> (Normal) 05-Wvm-475995:38 LIVER ALB 3.5 g/dL (Normal) Range: 3.4-5.0 ALK P 162 U/L (Abnormal) Range: 50-136 ALT 50 U/L (Normal) Range: 30-65 AST 21 U/L (Normal) Range: 15-37 D BILI 0.05 mg/dL (Normal) Range: 0.00-0.30 T BILI 0.38 mg/dL (Normal) Range: 0.00-1.00 T PROT 6.5 g/dL (Normal) Range: 6.4-8.2 11-Vyk-524812:38 MITOCHN AB 6650 <20.0 {Units} (Normal) Range: [...] T PROT 6.5 g/dL (Normal) Range: 6.4-8.2 0-Vgf-194005:02 THYROID (HP) Radiology Report See Note (Normal) Comments: Exam Number: [id number] THYROID ULTRASOUND HISTORYThyromegaly. High-resolution, real-time linear images [...] is recommended. Reported By: TRUE NAGEL M.D. 17-Ele-916706:05 Blood Glucose , Office (92426) Blood Glucose , Office 135 (Normal) 99-Noc-134714:05 HgA1C , Office (19879) HgA1C , Office 5.6 % (Normal) Range: 4.6 - 7.1 44-Fdw-20262:02 CBCD,SMEAR DIFF ANISO 1+ (Normal) CELLS COUNTED [...] Report See Note (Normal) Comments: Exam Number: [id number] CT BRAIN WITHOUT AND WITH INTRAVENOUS CONTRAST [...] clinically warranted. Reported By: AIDAN MASON M.D. 91-Qkn-239377:30 CBCD Comments: CALL [phone] TO [phone] BASO% 0.8 % (Normal) Range: 0-1 EO% [...] Range: 4.4-11.0 :30 COMP METABOLIC Comments: CALL [phone] TO [phone] A/G 1.5 {RATIO} (Normal) Range: 0.9-2.4 ALB [...] T PROT 5.9 g/dL (Abnormal) Range: 6.4-8.2 87-Opz-690278:30 LDH 206 U/L (Abnormal) Comments: CALL [phone] TO [phone] Range: 100-190 :30 URIC 5.7 mg/dL (Normal) Comments: CALL [phone] TO [phone] Range: 2.6-6.0 :30 CULT, DP WOUND Comments: [...] mg/dL (Abnormal) Range: 40-230 Comments: Performed At: [address] [id number] :[id number] LDH 211 U/L (Abnormal) Range: 100-190 [...] PT IN CATHLABPrecautions*: NOT APPLICABLE Range: 0.34-4.82 92-Bof-379476:20 BMP Comments: COMMENTS: BED 13 FASTPrecautions*: NOT [...] K/mm3 (Abnormal) Range: 4.4-11.0 :30 AFB C&S [id number] Comments: Precautions*: CHEMO PRECAUTIONSSPECIMEN DESCRIPTION: #2 SAME [...] for testing. ec-2 BF/CSF (Normal) 0069 :30 78-Pit-36070:30 FLUID P-FLU (Normal) Comments: OPERATION Not noted [...] DRAWN 07/22/06-TEST MISSED Range: 100-190 :51 SPE [id number] A/G RATIO 1.3 (Normal) Range: 0.7-2.0 ALBUMIN [...] Evidenceof monoclonal protein is not apparent.Performed At: [facility] [place] [address] [id number] M-SPIKE SeeNote (Normal) Comments: Result: Not Observed NOTE: Comment (Normal) Comments: Protein electrophoresis scan will follow via mail orcourier. PROTEIN,TOTAL 6.5 g/dL (Normal) Range: 6.0-8.5 :49 Blood Glucose , Office (86562) Blood Glucose , Office 84 (Normal) :49 HgA1C , Office (17789) HgA1C , Office 6.6 % (Normal) Range: [...] Paroxysmal tachycardia Planned Observations METABOLIC PANEL, BASIC (16782)Indication: CHF (congestive heart failure) On: 98-Vgr-987639:05 Request CPK MB FRACTION (94440)Indication: SOB (shortness of breath) On: :21 Request Comments: stat ASSAY, TROPONIN, QUANTITATIVE (aka Troponin I) (46328)Indication: SOB (shortness of breath) On: :21 Request Comments: stat CBC W/AUTO DIFF WBC (13634)Indication: SOB (shortness of breath) On: :08 Request Comments: stat METABOLIC PANEL, COMPREHENSIVE (85581)Indication: SOB (shortness of breath) On: :08 Request Comments: stat D-Dimer (90022)Indication: SOB (shortness of breath) On: :08 Request Comments: stat BNTP (57552)Indication: SOB (shortness of breath) On: :08 Request Comments: stat CBC with auto diff (03785)Indication: Diabetes mellitus type II, controlled On: :03 Request LIPID PANEL (01431)Indication: Diabetes mellitus type II, controlled On: :03 Request METABOLIC PANEL, COMPREHENSIVE (26411)Indication: Diabetes mellitus type II, controlled On: :03 Request HGB A1C (72806)Indication: Diabetes mellitus type II, controlled On: :02 Request TSH (THYROID STIMULATING HORMONE) (57290)Indication: Acquired hypothyroidism On: :02 Request Metabolic Panel, Basic (97143)Indication: Hyponatremia On: 24-Jxd-956809:00 Request TSH (21306)Indication: Diabetes mellitus type II, controlled On: :48 Request Vitamin B-12 (cyanocobalamin) (44954)Indication: B12 deficiency On: :45 Request CBC WITH MANUAL DIFF (08085)Indication: B12 deficiency On: :45 Request T3, FREE (TRIDOTHYRONINE) (77984)Indication: Thyroid nodule On: :48 Request Comments: add to labs already drawn T4, FREE (THYROXINE) (33649)Indication: Thyroid nodule On: :47 Request Comments: add to labs already drawn Digoxin (39178)Indication: Cardiomyopathy On: :44 Request LIPID PANEL (31568)Indication: Mixed hyperlipidemia On: :43 Request TSH (46455)Indication: Acquired hypothyroidism On: :43 Request Vitamin D Hydroxy (00011)Indication: Vitamin D deficiency On: :43 Request PSUBH-UBPCRAQIJPA-OUHJG (01415)Indication: Fatty liver On: :42 Request VITAMIN B-12 (CYANOCOBALAMIN) (70186)Indication: Fatigue On: :42 Request URINALYSIS, W/ MICRO (03866)Indication: Diabetes mellitus type II, controlled On: :30 Request MICROALBUMIN: CREATININE RATIO (01345) AND (91090)Indication: Diabetes mellitus type II, controlled On: : Request CBC with auto diff (50367)Indication: Diabetes mellitus type II, controlled On: :29 Request METABOLIC PANEL, COMPREHENSIVE (90053)Indication: Diabetes mellitus type II, controlled On: :29 Request HGB A1C (73617)Indication: Diabetes mellitus type II, controlled On: 59-Mzw-385759:29 Request HEPATIC FUNCTION PANEL (64391)Indication: Elevated liver enzymes On: 4-Ymd-958590:38 Request Comments: do in hospital tuesday when get US Metabolic Panel, Comprehensive (98947)Indication: Epigastric pain On: 78-Jyi-378405:54 Request Sed Rate Erythrocyte (82668)Indication: Epigastric pain On: :54 Request CBC, Platelets & Auto Diff (65990)Indication: Epigastric pain On: :54 Request OVA & PARASITE DIR SMEAR (89782)Indication: Diarrhea On: :53 Request OCCULT BLOOD FECES SCREEN (15270)Indication: Diarrhea On: :53 Request LEUKOCYTE COUNT, FECAL (78719)Indication: Diarrhea On: :53 Request C-DIFFICILE, STOOL (18980)Indication: Diarrhea On: :53 Request GENESIS CULTURE-STOOL (53208)Indication: Diarrhea On: :53 Request Magnesium (48031)Indication: Fatigue On: 82-Izt-022748:42 Request Vitamin B-12 (cyanocobalamin) (28523)Indication: Fatigue On: 26-Rro-313268:41 Request MICROALBUMIN: CREATININE RATIO (20041) AND (14292)Indication: Diabetes mellitus type II, controlled On: 13-Bog-318257:40 Request LIPID PANEL (47639)Indication: Mixed hyperlipidemia On: 04-Uqn-565129:39 Request CBC W/AUTO DIFF WBC (37948)Indication: Fatty liver On: 15-Kkk-561843:30 Request METABOLIC PANEL, COMPREHENSIVE (07994)Indication: Fatty liver On: 28-Vmc-254019:30 Request Vitamin D Hydroxy (34913)Indication: Vitamin D deficiency On: 70-Wco-372740:30 Request TSH (81638)Indication: Acquired hypothyroidism On: 46-Nqz-498204:30 Request Digoxin (79497)Indication: Cardiomyopathy On: 75-Zpo-219157:29 Request LIPASE (01660)Indication: Epigastric pain On: :28 Request AMYLASE (17779)Indication: Epigastric pain On: 80-Brl-348227:28 Request URINE GENESIS CULTURE-IDENTIFICATN (33673)Indication: Leukocytes in urine On: 57-Fqp-078877:38 Request MICROALBUMIN: CREATININE RATIO (97816) AND (89190)Indication: Essential hypertension with goal blood pressure less than 130/80 On: :58 Request CBC W/AUTO DIFF WBC (27775)Indication: Essential hypertension with goal blood pressure less than 130/80 On: :58 Request METABOLIC PANEL, COMPREHENSIVE (27143)Indication: Essential hypertension with goal blood pressure less than 130/80 On: :58 Request IMXZB-AAEHNEZQLAV-CRHQI (80687)Indication: Abnormal tumor markers On: :57 Request Vitamin D Hydroxy (71964)Indication: Vitamin D deficiency On: :09 Request LIPOPROTEIN, BLD, BY NMR (93812)Indication: Mixed hyperlipidemia On: :09 Request CBC W/AUTO DIFF WBC (92538)Indication: Diabetes mellitus type II, controlled On: :09 Request METABOLIC PANEL, COMPREHENSIVE (12720)Indication: Diabetes mellitus type II, controlled On: :09 Request Potassium Serum (54971)Indication: Hypopotassemia On: 55-Jvz-623331:02 Request JXKPN-FONCARSHWLO-WPXOZ (12747)Indication: Fatty liver On: :57 Request MICROALBUMIN: CREATININE RATIO (75746) AND (08767)Indication: Essential hypertension with goal blood pressure less than 130/80 On: :45 Request CBC W/AUTO DIFF WBC (41115)Indication: Essential hypertension with goal blood pressure less than 130/80 On: :45 Request METABOLIC PANEL, COMPREHENSIVE (48393)Indication: Essential hypertension with goal blood pressure less than 130/80 On: :45 Request Vitamin D Hydroxy (62130)Indication: Vitamin D deficiency On: :45 Request TSH (66054)Indication: Acquired hypothyroidism On: :45 Request LIPID PANEL (99588)Indication: Mixed hyperlipidemia On: :45 Request CBC W/AUTO DIFF WBC (54964)Indication: Diabetes mellitus type II, controlled On: :28 Request BLYKG-OBEKEKXPTCB-JCWMD (87120)Indication: Fatty liver On: 91-Szr-441663:03 Request METABOLIC PANEL, COMPREHENSIVE (90215)Indication: Mixed hyperlipidemia On: :55 Request LIPOPROTEIN, BLD, BY NMR (50385)Indication: Mixed hyperlipidemia On: :55 Request Metabolic Panel, Basic (30281)Indication: Hypopotassemia On: :55 Request Comments: 10 days CBC (AUTO) (38443)Indication: Uncontrolled type II diabetes mellitus On: : Request Vitamin D Hydroxy (54285)Indication: Vitamin D deficiency On: : Request MICROALBUMIN: CREATININE RATIO (83620) AND (03582)Indication: Uncontrolled type II diabetes mellitus On: 93-Bkc-578912:02 Request METABOLIC PANEL, COMPREHENSIVE (29894)Indication: Essential hypertension with goal blood pressure less than 130/80 On: 40-Jkf-937980:02 Request UQBVR-OCJNQTDHJYU-SPGCZ (88233)Indication: Fatty liver On: : Request LIPID PANEL (54123)Indication: Mixed hyperlipidemia On: 67-Wov-340942: Request TSH (09752)Indication: Thyroid nodule On: : Request CBC W/AUTO DIFF WBC (00575)Indication: Uncontrolled type II diabetes mellitus On: :47 Request METABOLIC PANEL, COMPREHENSIVE (71435)Indication: Uncontrolled type II diabetes mellitus On: :47 Request LIPID PANEL (48947)Indication: Mixed hyperlipidemia On: :47 Request Vitamin D Hydroxy (68723)Indication: Vitamin D deficiency On: 25-Rsy-661519:47 Request PTURY-UHTAAKJTNBS-LQUVO (14471)Indication: Fatty liver On: :27 Request CBC W/AUTO DIFF WBC (41056)Indication: Uncontrolled type II diabetes mellitus On: :26 Request LIPID PANEL (80823)Indication: Mixed hyperlipidemia On: :25 Request MICROALBUMIN: CREATININE RATIO (50927) AND (12010)Indication: Uncontrolled type II diabetes mellitus On: :25 Request TSH (98240)Indication: Acquired hypothyroidism On: :25 Request METABOLIC PANEL, COMPREHENSIVE (02417)Indication: Essential hypertension with goal blood pressure less than 130/80 On: :25 Request Vitamin D Hydroxy (65962)Indication: Vitamin D deficiency On: :25 Request CALCIFEDIOL (52819)Indication: Vitamin D deficiency On: 63-Bhz-302853:44 Request Comments: to be done Jun 2015 after done with ergocalciferol URINE GENESIS CULTURE (NITA COL COUNT) (78703)Indication: UTI (lower urinary tract infection) On: 0-Oiz-390984:22 Request LIPID PANEL (01211)Indication: Mixed hyperlipidemia On: 7-Qbl-978561:15 Request CBC W/AUTO DIFF WBC (97203)Indication: Uncontrolled type II diabetes mellitus On: 0-Azk-505112:14 Request METABOLIC PANEL, COMPREHENSIVE (87294)Indication: Uncontrolled type II diabetes mellitus On: 6-Rsv-078940:14 Request TSH (89262)Indication: Acquired hypothyroidism On: 3-Quf-386117:14 Request PGIAB-WJVMYNIYTRZ-WKFIG (76825)Indication: Fatty liver On: 8-Hrr-864455:14 Request CBC, Platelets & Auto Diff (18819)Indication: HX, PERSONAL, MALIGNANCY, LYMPHATIC NEC On: 10-Rbk-52837:07 Request CBC WITH MANUAL DIFF (31985)Indication: Abnormal glucose tolerance test On: :33 Request MICROALBUMIN: CREATININE RATIO (31293) AND (79282)Indication: Abnormal glucose tolerance test On: :33 Request LIPID PANEL (00804)Indication: Mixed hyperlipidemia On: :31 Request METABOLIC PANEL, COMPREHENSIVE (24695)Indication: Abnormal glucose tolerance test On: :31 Request URINE GENESIS CULTURE-NITA COL COUNT (69939)Indication: Dysuria On: 45-Kro-701039:03 Request RETICULOCYTE COUNT (03221)Indication: Anemia On: :37 Request Iron (54352)Indication: Anemia On: :37 Request Ferritin (98775)Indication: Anemia On: :37 Request CBC (Auto) (55861)Indication: Anemia On: :37 Request CBC, Platelets & Auto Diff (63267)Indication: Fever On: :03 Request Metabolic Panel, Comprehensive (38070)Indication: Fever On: :03 Request HgA1C , Office (91451)Indication: Abnormal glucose tolerance test On: 53-Gho-16469:55 Request CBC WITH MANUAL DIFF (67010)Indication: Abnormal glucose tolerance test On: :53 Request METABOLIC PANEL, COMPREHENSIVE (79607)Indication: Abnormal glucose tolerance test On: :53 Request LIPID PANEL (18804)Indication: Mixed hyperlipidemia On: :53 Request ONXNA-BNTMDSDWNGQ-XCNRR (36062)Indication: Fatty liver On: :53 Request PTT (Activated Partial Thromboplastin Time) (55600)Indication: Fatty liver On: :53 Request PT (Prothrobim Time) (40595)Indication: Fatty liver On: :53 Request MICROALBUMIN: CREATININE RATIO (52667) AND (91844)Indication: Abnormal glucose tolerance test On: 23-Bss-385112:49 Request Anti-TPO Antibody (84529)Indication: Acquired hypothyroidism On: 10-Cor-014459:14 Request Comments: 1 month TSH (71890)Indication: Acquired hypothyroidism On: 35-Mek-046092:13 Request Comments: 1 month T4, FREE (THYROXINE) (18807)Indication: Acquired hypothyroidism On: :13 Request Comments: 1 month T3, FREE (TRIDOTHYRONINE) (88577)Indication: Acquired hypothyroidism On: 64-Qmi-173597:13 Request Comments: 1 month CBC WITH MANUAL DIFF (02166)Indication: Abnormal glucose tolerance test On: :38 Request METABOLIC PANEL, COMPREHENSIVE (79692)Indication: Abnormal glucose tolerance test On: :38 Request LIPID PANEL (75577)Indication: Mixed hyperlipidemia On: :38 Request MICROALBUMIN: CREATININE RATIO (89990) AND (91506)Indication: Abnormal glucose tolerance test On: 23-Wyp-893044:56 Request CBC WITH MANUAL DIFF (61025)Indication: Elevated LFTs On: 43-Mdc-652537:56 Request METABOLIC PANEL, COMPREHENSIVE (55603)Indication: Elevated LFTs On: 29-Ryg-454464:56 Request LIPID PANEL (50899)Indication: Mixed hyperlipidemia On: 02-Zpr-856095:56 Request TSH (13595)Indication: Acquired hypothyroidism On: 29-Ftl-400544:56 Request CBC WITH MANUAL DIFF (21984)Indication: Essential hypertension with goal blood pressure less than 130/80 On: :34 Request TSH (31678)Indication: Acquired hypothyroidism On: :34 Request METABOLIC PANEL, COMPREHENSIVE (40546)Indication: Fatty liver On: :33 Request LIPID PANEL (93811)Indication: Mixed hyperlipidemia On: :33 Request MICROALBUMIN: CREATININE RATIO (86857) AND (89865)Indication: Uncontrolled type II diabetes mellitus On: :46 Request TSH (64294)Indication: Acquired hypothyroidism On: :46 Request LIPID PANEL (78522)Indication: Mixed hyperlipidemia On: 11-Vic-12536:45 Request METABOLIC PANEL, COMPREHENSIVE (45129)Indication: Elevated LFTs On: :45 Request HgA1C , Office (33353)Indication: Uncontrolled type II diabetes mellitus On: :28 Request URINE GENESIS CULTURE-NITA COL COUNT (41711)Indication: Cystitis, acute On: :43 Request URINE GENESIS CULTURE-IDENTIFICATN (60716)Indication: Dysuria On: :10 Request CBC WITH MANUAL DIFF (45516)Indication: Headache On: 64-Lrs-085147:56 Request METABOLIC PANEL, COMPREHENSIVE (46454)Indication: Headache On: 22-Hgc-380068:56 Request LIPID PANEL (13554)Indication: Mixed hyperlipidemia On: 60-Nsd-595686:56 Request TSH (14191)Indication: Acquired hypothyroidism On: 93-Wup-967219:56 Request METABOLIC PANEL, COMPREHENSIVE (93530)Indication: Uncontrolled type II diabetes mellitus On: 06-Npy-613489:28 Request HEPATIC FUNCTION PANEL (11909)Indication: Mixed hyperlipidemia On: :28 Request LIPID PANEL (26802)Indication: Mixed hyperlipidemia On: : Request LIPID PANEL (27056)Indication: Mixed hyperlipidemia On: :39 Request MICROALBUMIN: CREATININE RATIO (56954) AND (59970)Indication: Uncontrolled type II diabetes mellitus On: :39 Request CBC WITH MANUAL DIFF (79334)Indication: Essential hypertension with goal blood pressure less than 130/80 On: :39 Request METABOLIC PANEL, COMPREHENSIVE (65364)Indication: Elevated LFTs On: :39 Request TSH (10522)Indication: Acquired hypothyroidism On: :36 Request TSH (86982)Indication: Thyroid nodule On: :20 Request METABOLIC PANEL, COMPREHENSIVE (10771)Indication: Elevated LFTs On: :19 Request LIPID PANEL (92424)Indication: Mixed hyperlipidemia On: :19 Request C-REACTIVE PROTEIN (03126)Indication: Abnormal findings on diagnostic imaging of other specified body structures On: 21-Xpr-379804: Request SED RATE ERYTHROCYTE (62847)Indication: Abnormal findings on diagnostic imaging of other specified body structures On: 67-Bbx-914311: Request LDH (LD) (LACTATE DEHYDROGENASE) (59252)Indication: Abnormal findings on diagnostic imaging of other specified body structures On: 85-Wxb-205249: Request Urine Protein Electrophoresis (UPEP) (70995)Indication: Abnormal findings on diagnostic imaging of other specified body structures On: 51-Feq-460132: Request Serum Protein Electrophoresis (SPEP) (72954)Indication: Abnormal findings on diagnostic imaging of other specified body structures On: 72-Rjx-454637: Request METABOLIC PANEL, COMPREHENSIVE (63433)Indication: Diabetes mellitus type II, controlled On: :19 Request LIPID PANEL (40133)Indication: Mixed hyperlipidemia On: : Request URINE GENESIS CULTURE-NITA COL COUNT (54728)Indication: Dysuria On: 14-Ieg-866156:58 Request HEPATIC FUNCTION PANEL (11119)Indication: Elevated LFTs On: :18 Request LIPID PANEL (44562)Indication: Mixed hyperlipidemia On: 56-Gaw-677747:17 Request MICROALBUMIN: CREATININE RATIO (22139) AND (51023)Indication: Uncontrolled type II diabetes mellitus On: 3-Cqt-173758:47 Request CBC WITH MANUAL DIFF (82936)Indication: Uncontrolled type II diabetes mellitus On: 2-Azz-218014:47 Request METABOLIC PANEL, COMPREHENSIVE (97587)Indication: Uncontrolled type II diabetes mellitus On: 1-Nzs-722849:47 Request HEPATIC FUNCTION PANEL (35231)Indication: Elevated LFTs On: 4-Orf-141041:45 Request LIPID PANEL (40068)Indication: Mixed hyperlipidemia On: 9-Awe-168461:44 Request HEPATIC FUNCTION PANEL (13771)Indication: Fatty liver On: 8-Dmm-417370:30 Request LIPID PANEL (12126)Indication: Mixed hyperlipidemia On: 6-Yvc-611211:30 Request URINE GENESIS CULTURE (NITA COL COUNT) (72640)Indication: Low back pain potentially associated with radiculopathy On: 93-Wbv-626759:03 Request MICROALBUMIN: CREATININE RATIO ([id number]) AND ([id number])Indication: Dysuria On: 30-Vhw-169556:05 Request LIPID PANEL ([id number])Indication: Dysuria On: 55-Fil-640926:05 Request TSH ([id number])Indication: Dysuria On: 19-Nit-976925:05 Request METABOLIC PANEL, COMPREHENSIVE ([id number])Indication: Dysuria On: 83-Yyu-953397:04 Request CBC WITH MANUAL DIFF ([id number])Indication: Dysuria On: 79-Ded-726162:04 Request URINE GENESIS CULTURE-NITA COL COUNT ([id number])Indication: Dysuria On: 86-Lbb-791245:45 Request URINE GENESIS CULTURE (NITA COL COUNT) ([id number])Indication: Dysuria On: 90-Ezv-744898:17 Request METABOLIC PANEL, COMPREHENSIVE ([id number])Indication: Fatty liver On: 84-Rnx-23708:58 Request Magnesium (54213)Indication: Palpitations On: 07-Obp-72492:51 Request TSH ([id number])Indication: Palpitations On: 36-Ite-38426:51 Request METABOLIC PANEL, COMPREHENSIVE ([id number])Indication: Palpitations On: 61-Url-32345:51 Request CBC WITH MANUAL DIFF ([id number])Indication: Palpitations On: 94-Anx-98129:51 Request GGT (Gamma Glutamyl Transferase) ([id number])Indication: Elevated LFTs On: 56-Jfz-659335:16 Request HEPATIC FUNCTION PANEL ([id number])Indication: Elevated LFTs On: 70-Bzm-658115:16 Request VITAMIN B-12 (CYANOCOBALAMIN) ([id number])Indication: Fatigue On: 34-Imr-64464:23 Request MICROALBUMIN URINE QUANT ([id number])Indication: Diabetes mellitus type II, controlled On: :22 Request TSH ([id number])Indication: Fatigue On: :22 Request CBC WITH MANUAL DIFF ([id number])Indication: Diabetes mellitus type II, controlled On: :22 Request METABOLIC PANEL, COMPREHENSIVE ([id number])Indication: Diabetes mellitus type II, controlled On: :22 Request LIPID PANEL ([id number])Indication: Mixed hyperlipidemia On: :22 Request HEPATIC FUNCTION PANEL ([id number])Indication: Mixed hyperlipidemia On: 07-Qlm-730795:48 Request LIPID PANEL ([id number])Indication: Mixed hyperlipidemia On: 42-Afr-259632:48 Request Comments: in 3 mos Planned Encounters Medical; [facility] 1 Month FU - On: 12-Sep-2018 8:00 [facility] Fast DO, Sangeetha A Fast DO, Sangeetha A Medical; Overnight Pulse Ox Placement - On: 20-Sep-2018 13:00 [facility] Visit, Nurse Planned Procedures Echo CompleteBy: Fast DO, Sangeetha A On: 04-Sep-2018 Intent Fast DO, Sangeetha A CTA CHEST W/W/O CONTRAST ([id number])By: On: 04-Sep-2018 Intent Fast DO, Sangeetha A Fast DO, Sangeetha A Overnight Pulse OX ([id number])By: Fast On: 04-Sep-2018 Intent DO, Sangeetha A Fast DO, Sangeetha A Spirometry ([id number])By: Fast DO, On: 04-Sep-2018 Intent Sangeetha A Fast DO, Sangeetha A Comments: difficutly with insp effort severe restriction ELECTROCARDIOGRAM, COMPLETE (ECG) On: 04-Sep-2018 Intent ([id number])By: Fast DO, Sangeetha A Fast DO, Comments: ekg- 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 and possible recent anterior wall mi- nonspecific st depression Sangeetha A Flu Vaccine (Quadrivalent) 72551Wi: On: 21-Jul-2018 Intent Fast DO, Sangeetha A Fast DO, Sangeetha A SCREENING DIGITAL TOMOSYNTHESIS OF On: 21-Jul-2018 Intent BREAST ([id number])By: Fast DO, Sangeetha A Fast DO, Sangeetha A B 12 Injection, 1000 mcg ([id number])By: On: 31-May-2018 Intent Fast DO, Sangeetha A Fast DO, Sangeetha A Comments: Lot#[id number] EXP:[id number] given:left deltoid Given By: clarita albright ABN signed CT - Abdomen (IV Contrast Needed)By: On: 31-May-2018 Intent Fast DO, Sangeetha A Fast DO, Sangeetha A Doppler Ultrasound OtherBy: Fast DO, On: 19-May-2018 Intent Sangeetha A Fast DO, Sangeetha A Comments: left arm ULTRASOUND OF LIVER ([id number])By: On: 24-Feb-2018 Intent Jennifer Rios MD PFT - CompleteBy: Fast DO, Sangeetha A On: 21-Oct-2017 Intent Fast DO, Sangeetha A Comments: at [facility] SCREENING DIGITAL TOMOSYNTHESIS OF On: 21-Oct-2017 Intent BREAST ([id number])By: Fast DO, Sangeetha A Comments: end of oct Fast DO, Sangeetha A EsophagramBy: Fast DO, Sangeetha A Fast On: 21-Oct-2017 Intent DO, Sangeetha A Comments: with 12 mm tablet ELECTROCARDIOGRAM, COMPLETE (ECG) On: 21-Oct-2017 Intent ([id number])By: Fast DO, Sangeetha A Fast DO, Sangeetha A Flu Vaccine (Quadrivalent) 51424Ak: On: 07-Jun-2017 Intent Fast DO, Sangeetha A [...] DO, Sangeetha A DEXA SCAN AXIAL SKELETON ([id number])By: On: 16-Aug-2016 Intent Fast DO, Sangeetha A Fast DO, Sangeetha A MAMMOGRAM, SCREENING, BOTH BREAST On: 16-Aug-2016 Intent ([id number])By: Fast DO, Sangeetha A Fast DO, Sangeetha A ELECTROCARDIOGRAM, COMPLETE (ECG) On: 16-Aug-2016 Intent ([id number])By: Fast DO, Sangeetha A Fast DO, Sangeetha A Flu Vaccine (Quadrivalent) 28254Me: On: 16-Aug-2016 Intent Fast DO, Sangeetha A Fast DO, Sangeetha A Comments: FLUlot: [id number]/09site:Lt deltoidroute:IMdose:.5ml[facility] [place] [facility] OF INFLUENZA VIRUS On: 16-Aug-2016 Intent VACCINE (G0008)By: Fast DO, Sangeetha A Fast DO, Sangeetha A Ultrasound - ThyroidBy: Fast DO, On: 10-Nov-2015 Intent Sangeetha A Fast DO, Sangeetha A Ultrasound - LiverBy: Fast DO, Sangeetha On: 10-Nov-2015 Intent A Fast DO, Sangeetha A Flu Vaccine (Quadrivalent) 80790Te: On: 08-Aug-2015 Intent Fast DO, Sangeetha A Fast DO, Sangeetha A Comments: Lot #[id number]-L dltd, IMDose prefilled syringegiven by:Romero, AMRITANVIS and ABN signed MAMMOGRAM, SCREENING, BOTH BREAST On: 08-Aug-2015 Intent ([id number])By: Fast DO, Sangeetha A Fast DO, Sangeetha A Ultrasound - ThyroidBy: Fast DO, On: 08-Aug-2015 Intent Sangeetha A Fast DO, Sangeetha A Ultrasound - LiverBy: Fast DO, Sangeetha On: 08-Aug-2015 Intent A Fast DO, Sangeetha A ADMINISTRATION OF PNEUMOCOCCAL On: 01-Nov-2014 Intent VACCINE (G0009)By: Fast DO, Sangeetha A Fast DO, Sangeetha A PNEUM VAC ADLT/IMUMNOSPR, SBC/INTRM On: 01-Nov-2014 Intent ([id number])By: Fast DO, Sangeetha A Fast DO, Comments: Lot:[id number]:02/29/16Dose:0.5mgRoute:imSite:mk Donis By:BATSHEVA Ring A Ultrasound - LiverBy: Tavon DO, Sangeetha On: 05-Jul-2014 Intent A Fast DO, Sangeetha A BILATERAL MAMMOGRAMS ([id number])By: Tavon On: 05-Jul-2014 Intent DO, Sangeetha A Fast DO, Sangeetha A Ultrasound - ThyroidBy: Tavon DO, On: 05-Jul-2014 Intent Sangeetha A Fast DO, Sangeetha A ADMINISTRATION OF INFLUENZA VIRUS On: 05-Jul-2014 Intent VACCINE (G0008)By: Arpan Irvin DOa A Comments: Influenzalot:[id number]:03/25/2015dose:0.5mLRoute: IMlocation:Lois donis by:marika Fast DO, Sangeetha A FLU VAC, SPLIT, >3 YEARS, INTRAMUSC On: 05-Jul-2014 Intent (25253)By: Sangeetha Irvin DO Fast DO, Sangeetha A INFUSION, NORMAL SALINE SOLUTION , On: 15-Apr-2014 Intent 250 CC ([id number])By: Angelina Winn CNP Rocephon Injection, 1 Gm (J0696)By: On: 15-Apr-2014 Intent Angelina Winn CNP Comments: Rocephin 1gmLot #[id number]. [id number] in R hand x 1 stick with [...] SPLIT, >3 YEARS, INTRAMUSC On: 27-Jul-2013 Intent ([id number])By: Fast DO, Sangeetha A Fast DO, Sangeetha A Eprescribed prescriptions ([id number])By: On: 04-Jun-2013 Intent Delisa Melendez LPN SPECIMEN HANDLING/TRANSPORT On: 04-Jun-2013 Intent ([id number])By: Delisa Melendez LPN INFUSION, NORMAL SALINE SOLUTION , On: 15-Feb-2013 Intent 1000 CC (Special Coverage Comments: 500 cc Instructions Apply. See MCM: 2049) ([id number])By: Jennifer Rios MD HYDRATION IV INFUSION, INIT On: 15-Feb-2013 Intent (83234)By: Jennifer Rios MD Ultrasound - ThyroidBy: Fast DO, On: 19-Jan-2013 Intent Sangeetha A Fast DO, Sangeetha A MAMMOGRAM, SCREENING, BOTH BREASTS On: 19-Jan-2013 Intent ([id number])By: Fast DO, Sangeetha A Fast DO, Comments: due in january Sangeetha A Eprescribed prescriptions (G8553)By: On: 19-Jan-2013 Intent Isabella Grigsby Pulse Oximetry (47065)By: Seb, On: 29-Sep-2012 Intent Isabella Comments: 98% Eprescribed prescriptions (G8553)By: On: 29-Sep-2012 Intent Isbaella Grigsby Ultrasound - ThyroidBy: Fast DO, On: 15-Sep-2012 Intent Sangeetha A Fast DO, Sangeetha A Eprescribed prescriptions (G8553)By: On: 15-Sep-2012 Intent Isabella Grigsby Eprescribed prescriptions (G8553)By: On: 12-May-2012 Intent Fast DO, Sangeetha A Fast DO, Sangeetha A Eprescribed prescriptions (G8553)By: On: 12-May-2012 Intent Isabella Grigsby MAMMOGRAM, SCREENING, BOTH BREASTS On: 24-Jan-2012 Intent (85584)By: Fast DO, Sangeetha A Fast DO, Sangeetha A TDAP VACCINE >7 IM ([id number])By: Fast On: 04-Oct-2011 Intent DO, Sangeetha A Fast DO, Sangeetha A Comments: Lot:[id number]:08/12/13Amt:prefilledRoute:IMSite:right deltGiven By: NATALEE Spence Aerosol Treatment (34548)By: Blanca On: 26-Aug-2011 Intent Jennifer KING Pulse Oximetry (82036)By: Blanca On: 26-Aug-2011 Intent Jennifer KING SPECIMEN HANDLING/TRANSPORT On: 23-Jul-2011 Intent (95253)By: Delisa Melendez LPN FLU VAC, SPLIT, >3 YEARS, INTRAMUSC On: 05-Jul-2011 Intent ([id number])By: Isabella Grigsby Comments: Lot #[id number]/20/12Site-left deltoidgiven by: Lisa Bello LPN Ultrasound - ThyroidBy: Fast DO, On: 05-Jul-2011 Intent Sangeetha A Fast DO, Sangeetha A MAMMOGRAM, SCREENING, BOTH BREASTS On: 05-Jul-2011 Intent ([id number])By: Fast DO, Sangeetha A Fast DO, Sagneetha A ADMINISTRATION OF INFLUENZA VIRUS On: 05-Jul-2011 Intent VACCINE (G0008)By: Isabella Grigsby Eprescribed prescriptions (G8553)By: On: 04-Jun-[address] - Brain/HeadBy: Fast DO, Sangeetha A On: 07-Oct-2010 Intent Fast DO, Sangeetha A Comments: with and without contrast MAMMOGRAM, SCREENING, BOTH BREASTS On: 26-Jun-2010 Intent ([id number])By: Fast DO, Sangeetha A Fast DO, Sangeetha A ADMINISTRATION OF INFLUENZA VIRUS On: 26-Jun-2010 Intent VACCINE (G0008)By: Fast DO, Sangeetha A Fast DO, Sangeetha A FLU VAC, SPLIT, >3 YEARS, INTRAMUSC On: 26-Jun-2010 Intent ([id number])By: Fast DO, Sangeetha A Fast DO, Comments: Lot:[id number]:12/2010Dose:0.5mlRoute:IMSite:Left DeltoidGiven by: HEIDI Alberto Ultrasound - ThyroidBy: Fast DO, On: 07-Jan-2010 Intent Sangeetha A Fast DO, Sangeetha A CT - Spine/CervicalBy: Fast DO, On: 15-Dec-2009 Intent Sangeetha A Fast DO, Sangeetha A Comments: 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 -- need to rule out Pulse Oximetry (17238)By: Fast DO, On: 09-Jul-2009 Intent Sangeetha A Fast DO, Sangeetha A Spirometry (80125)By: Fast DO, On: 10-Jul-2009 Intent Sangeetha A Fast DO, Sangeetha A Comments: good effort and curve- mild restriciton Radiology - Chest- PA and LatBy: On: 09-Jul-2009 Intent Fast DO, Sangeetha A Fast DO, Sangeetha A Pulse Oximetry (88021)By: Fast DO, On: 10-Jul-2009 Intent Sangeetha A Fast DO, Sangeetha A Comments: 98 FLU VAC, SPLIT, >3 YEARS, INTRAMUSC On: 09-Jul-2009 Intent ([id number])By: Isabella Grigsby Comments: Lot #[id number]-right deltoidDose0.5mlgiven by Juventino Nye LPN IMMUNIZ ADMNIN, 1 VAC, SNGL/COMBO On: 09-Jul-2009 Intent ([id number])By: Isabella Grigsby EKG (79763)By: Fast DO, Sangeetha A On: 10-Oct-2008 Intent [...] ADMNIN, 1 VAC, SNGL/COMBO On: 10-Jul-2008 Intent ([id number])By: Fast DO, Sangeetha A Fast DO, Sangeetha A FLU VAC, SPLIT, >3 YEARS, INTRAMUSC On: 10-Jul-2008 Intent ([id number])By: Fast DO, Sangeetha A Fast DO, Comments: injection given in left deltoid, pt tolerated welllot # [id number] Sangeetha A Holter Monitor 24 hrsBy: Fast DO, On: 10-Jul-2008 Intent Sangeetha A Fast DO, Sangeetha A EKG ([id number])By: Marlene Reddy On: 10-Jul-2008 Intent Comments: ekg [...] [facility]ps[facility] BMI 31.0-31.9,adult, Nonsmoker, SOB [...] using tylenol and will go back to [place] if need be for shot-sugar fine-n foot [...] off metformin and lisinopril andthen went to [place] for couple weeks then had multiple falls sent back to hospital and transferred to [facility] there for few weeks then to [facility] had lots of pt- and doing [...] fasting blood sugars : (was lower before [place] and 139 last week fasting in the [...] Reason for hospitalization abdominal pain (Went to [facility] on 02/28/15). Hospitalization details include: abnormal [...] previously evaluated by a primary physician (at [facility]- Dr Reyes ). Presentation included [...] is helping her mood- has followup in [facility] may 04 - her weight down 20 [...] sees heart failure doctor next week at [facility] - -- mood ebs and flows- [...] of all the problems -goes back to [facility] on tuesday and psych in 2 weeksEncounter [...] or less). 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
--- OUTSIDE RECORDS SUMMARY | 2018-10-21 23:05 | XMS RPT_ITS | Continuity of Care Document ---
:1965 Author Organization [facility] Address [facility] [facility] [address] [place] [address] Phone Care Team Providers Name Role Phone [...] 0 Ordered:08-Jan-2014 Fast DO, Sangeetha AFast DO, Sangeetah A Start : 08-Jan-2014 Active Digoxin 125 [...] {Tablet} Refills: 3 Ordered:07-Jun-2018 Sangeetha JAVEDbud DAVIS Sangeehta A Start : 07-Jun-2018 Active Lasix 40 [...] Quantity: 30 {QS} Refills: 11 Ordered:08-Sep-2018 Long FARMER DIVERSIFIED CROPS, Amelia L Start : 08-Sep-2018 Active Comments:Home [...] Quantity: 10 {Tablet} Refills: 0 Ordered:23-Feb-2018 Long FARMER DIVERSIFIED CROPS, Amelia L Start : 23-Feb-2018 Active AMITIZA, [...] Quantity: 30 {Tablet} Refills: 0 Ordered:05-Jul-2011 Al FARMER DIVERSIFIED CROPSDelisa Chaidez Start : 05-Jul-2011 End : 04-Aug-2011 [...] : 25-Jan-2018 End : 19-May-2018 Inactive ERGOCALCIFEROL, 08458KFON (Oral Capsule) 1 (one) Capsule Capsule twice [...] : 23-Jul-2011 End : 02-Aug-2011 Inactive MAXITROL, 3.5-16369-8.1 (Ophthalmic Ointment) apply to eye lids as [...] hs (50 MG) Inactive Comments:Dr. Hankins NYSTATIN, 849859NXAI/ML (Mouth/Throat Suspension) 5cc Suspension 5 times daily [...] Quantity: 30 {Capsule} Refills: 0 Ordered:27-Jul-2013 Tavon DVAIS Sangeetha TEGANast DO, Sangeetha A Start : [...] : 15-Aug-2006 End : 22-Apr-2008 Discontinued Comments:per giblert LOTENSIN HCT, 10-12.5MG (Oral Tablet) 1 Tablet [...] Quantity: 30 {Tablet} Refills: 0 Ordered:19-May-2018 Long FARMER DIVERSIFIED CROPSAmelia L Start : 12-May-2012 End : 19-May-2018 Discontinued Comments:This order discontinued per [employer]. ZOFRAN ODT, 4MG (Oral Tablet Dispersible) qd prn nausea (4 MG) End : 08-Aug-2015 Discontinued Comments:[facility] Allergies and Adverse Reactions Name [...] w/ Contrast Result: Comments: See Note; NOTES: [facility] Cardiovascular Services [address] [place] [address] Echo Complete W/ Contrast 09/06/18 1002 MR#: [id number] Acct: [id number] Name: IFEOMA DÍAZ Rep #: [id number] : 1965 53 From: Boone Ch MD Attending Dr: Sangeetha Irvin DO Status: REG CLI Ordering Dr: Sangeetha Irvin DO Date: 09/06/18 Location: [facility] Sex: F C Admitted: Reason F [...] Dictated: 09/06/18 1002 Date Transcribed: 09/06/18 1534 Morning Nanny: Signed 04-Sep-2018 CTA Chest W/WO Contrast Result: Comments: See Note; NOTES: [facility] Imaging Services [address] [place] [address] CTA Chest W/WO Contrast MR#: [id number] Acct: [id number] Name: IFEOMA ASHRAF Rep #: : 1965 F 53 From: Ziggy Santos MD PCP: Sangeetha Irvin DO Status: REG CLI Study: CTA Chest W/WO Contrast Date of Exam: 09/04/18 Exam# [id number] Ordering Dr: Sangeetha Irvin DO STUDY: CTA [...] Service support , CC: Sangeetha Irvin DO Morning Nanny: Signed 14-Jul-2018 Chest PA and Lateral Result: Comments: See Note; NOTES: [facility] Imaging Services [address] [address] Chest PA and Lateral MR#: [id number] Acct: [id number] Name: IFEOMA ASHRAF Rep #: [id number] : 1965 F 53 From: Dimitris Valderrama DO PCP: Sangeetha Irvin DO Status: REG CLI Study: Chest PA and Lateral Date of Exam: 07/14/18 Exam# [id number] Ordering Dr: Oscar Todd CURTAIN HEMMER AUTOMATIC-C STUDY: X-RAY CHEST REASON FOR EXAM: Female, [...] Dimitris Valderrama DO at 8:47 EDT Tel [phone], Service support , CC: NUNU Todd; Sangeetha Irvin DO Morning Nanny: Signed 10-Jun-2018 Pacemaker Check Result: Comments: See Note; NOTES: [facility] [address] [place] [address] Pacemaker Check Date of Service: 06/09/18 0909 MR#: [id number] Acct: [id number] Name: IFEOMA ASHRAF Rep #: [id number] : 1965 From: Danica Pickering Age/Sex: 53/F Location[facility] Status: Signed Billing Codes ICD Device Billing: ICD Dev Prog Eval, Single 06/09/18 0913 <Elec tronically signed by Danica Pickering > Date Danica Pickering 06/10/18 1406<Electronically signed by Boone Ch MD> Junior Signat ure: Date (if applicable) Boone Ch MD CC: 08-Jun-2018 Cardiology Visit Report Result: Comments: See Note; NOTES: [facility] [address] [place] [address] OFFICE VISIT Date of Service: 05/31/18 MR#: [id number] Acct: [id number] Name: IFEOMA ASHRAF Rep #: [id number] : 1965 Provider: NUNU Todd Age/Sex: 53/F Location: [facility] Status: Signed with Addenda ADDENDUM by NUNU [...] defibrillator (ICD) Z95.810 Generator change 11/13 @ [facility] LUPE Chapman Pacemaker check in [...] prior to saving. Follow Up 6 Months (MECHANICAL SPECIALIST) 05/31/18 (GIUSEPPE) 06/01/18 0747 <Electronically signed by [...] ral regurgitation and tricuspid regurgitation. She presented [facility] on March 08, 2018 after being found unresponsive in her bathroom. During this hospitalization she was found to have an acute left axillary and left brachial vein DVT and was started on Eliquis. She presented to [facility] emergency department in March 2018 for [...] 05/31/18 Pulse Rate 100 Intake Visit Reasons: [facility] to [facility] to [facility] to [place] Allergies amitriptyline Adverse Reaction (Severe, Verified 05/31/18 [...] rter-defibrillator (ICD) Z95.810 Generator change 11/13 @ [facility] LUPE Chapman Pacemaker check in [...] prior to saving. Follow Up 6 Months (MECHANICAL SPECIALIST) 05/31/18 (GIUSEPPE) Coding Level of Care Code [...] <Electronically signed by Oscar ANDRADE> Date Oscar powleligndequan Signature: Date (if applicable) CC: Sangeetha Irvin DO 05-Jun-2018 Oncology Visit Report Result: Comments: See Note; NOTES: [facility] Oncology [address] [place] [address] [place] [address] OFFICE VISIT Date of Service: 06/05/18 1314 MR#: [id number] Acct: [id number] Name: TYLOR ASHRAF Dm Pulido Rep #: [id number] : 1965 From: Simeon Gresham MD Age/Sex: 53/F Location: [facility] Status: Signed Subjective - Date of Service Date of Service:: 06/05/18 - Chief Complaint Follow up DLBCL - His tory of Present Illness 53-year-old woman was diagnosed with non-Hodgkin's lymphoma, diffuse large B cell, stage IV of the uterine cervix with BILLIARD PARLOR MANAGER/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 She had [...] stem cell transplant in February 2007 at [facility] with complete remission. She is on [...] Chronic Code Visit Office Visits / Consults: 46888 OV L3 Est 1325 <Electronically signed by Simeon Gresham MD> Date Simeon Gresham MD Cosigner Signature: Date (if applicable) CC: 26-May-2018 Venous Duplex Upper Extremity Result: Comments: See Note; NOTES: [facility] Cardiovascular Services [address] [place] [address] Venous Duplex US, Unilateral 05/25/18 0903 MR#: [id number] Acct: [id number] Name: IFEOMA SILVA Rep #: [id number] : 1965 53 From: Juanjo Russo MD Attending Dr: Sangeetha Irvin DO Status: REG CLI Ordering Dr: Sangeetha Irvin DO Date: 05/25/18 Location: [facility] Sex: F C Admitted: Lois pedraza [...] Date Dictated: 05/25/18902 Date Transcribed: 05/26/18 163 Morning Nanny: Signed 06-Apr-2018 Chest 1 View (Portable) Result: Comments: See Note; NOTES: [facility] Imaging Services [address] [place] [address] Chest 1 View (Portable) MR#: [id number] Acct: [id number] Name: IFEOMA ASHRAF Rep #: [id number] : 1965 F 53 From: [facility] PCP: Sangeetha Irvin DO Status: PRE ER Study: Chest 1 View (Portable) Date of Exam: 04/06/18 Exam# [id number] Ordering Dr: Dejuan Bacon MD STUDY: X-RAY [...] , CC: Sangeetha Irvin DO; Dejuan Bacon Morning Nanny: Signed 05-Apr-2018 Brain/Head without Contrast Result: Comments: See Note; NOTES: [facility] Imaging Services [address] [address] Brain/Head without Contrast MR#: [id number] Acct: [id number] Name: IFEOMA ASHRAF Rep # : [id number] : 1965 F 53 From: Levy Lucas DO PCP: Sangeetha Irvin DO Status: REG CLI Study: Brain/Head without Contrast Date of Exam: 04/05/18 Exam# [id number] Ordering Dr: Oscar Bartlett MD STUDY : [...] 14:06 EDT Tel , Service support 1- [phone], N.B. : The above information has been verbally conveyed by Levy Lucas DO to connected , Covering Physician, on 04/05/2018 14:06:03 (ET). CC: Sangeetha Irvin DO; Oscar Bartlett MD Morning Nanny: Signed 05-Apr-2018 Brain/Head without Contrast Result: Comments: See Note; NOTES: [facility] Imaging Services [address] [place] [address] Brain/Head without Contrast MR#: [id number] Acct: [id number] Name: IFEOMA ASHRAF Rep # : [id number] : 1965 F 53 From: Levy Lucas DO PCP: Sangeetha Irvin DO Status: REG CLI Study: Brain/Head without Contrast Date of Exam: 04/05/18 Exam# [id number] Ordering Dr: Oscar Bartlett MD STUDY : [...] 14:06 EDT Tel , Service support 1- [phone], N.B. : The above information has been verbally conveyed by Levy Lucas DO to connected , Covering Physician, on 04/05/2018 14:06:03 (ET). CC: Sangeetha Irvin DO; Oscar Bartlett MD Morning Nanny: Signed 31-Mar-2018 Cardiology Visit Report Result: Comments: See Note; NOTES: [facility] [address] [place] [address] OFFICE VISIT Date of Service: 03/31/18 MR#: [id number] Acct: [id number] Name: Ifeoma Ashraf Rep #: [id number] : 1965 Provider: Boone Ch MD Age/Sex: 53/F [place] [facility] Status: Signed HPI HPI Chief Complaint: Follow-up [...] who presented to the emergency department at [facility] on 03/08/2018 aft er being found [...] care unit. She was eventually transferred to [facility]. Her major problem at this [...] Lt brachial Intake Visit Reasons: DC to [facility] 03-14 Wire Brush Maker Required: No Accompanied by: mother Is patient [...] therapy. I would like to obtain a biological chemist ry profile to be able to appropriately adjust any diuretics. At this juncture it may be prudent to add Lasix 40 mg a day to her current regimen. 2. Presence of implantable cardioverter-defibrillator (I CD) Z95.810 Generator change 11/13 @ [facility] Dr. Ahmadi Plan She does [...] months. 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) Coding Level of Care Code Off vis,est,level [...] Flow Screening Result: Comments: See Note; NOTES: [facility] Cardiovascular Services [address] [place] [address] 11/22/17 0803 MR#: [id number] Acct: [id number] Name: IFEOMA ASHRAF Rep #: [id number] [...] Date Dictated: 11/22/17 0803 Date Transcribed: 11/22/171517 Morning Nanny: Signed 18-Nov-2017 Office Visit Report Result: Comments: See Note; NOTES: [place] [address] [place] [address] OFFICE VISIT Date of Service: 11/17/17 MR#: [id number] Acct: [id number] Patient: IFEOMA ASHRAF Rep #: [id number] : 1965 Provider: Danica Pickering Age/Sex: 52/F [...] n office Interview Reason: scheduled follow up Ready Mix Truck Driver: [employer] Name: Lan Mckeon VR Model: [id number] Serial #: [id number] Implant Date: 11/10/17 Year(s): 0 Implant Physician: [...] and No drainage Bibiana ds Lead #1 Ready Mix Truck Driver Lead 1: [employer] Model Lead 1: 7121Q/58 Serial# Lead 1: [id number] Date Implanted Lead 1: 10/10/09 Position Lead [...] Operative Report Result: Comments: See Note; NOTES: [facility] Medical Records Department [address] [place] [address] Operative Report 11/10/17 1148 MR#: [id number] Acct: [id number] Name: SALOME ASHRAF Rep #: [id number] : 1965 52 From: Lior Ahmadi MD PCP: Sangeetha Irvin DO Status: REG [facility] Location: [facility] Operative Report Date of Procedure: 11/10/17 Preoperative diagnosis is device at end of life for normal battery depletion. Postoperative diagnosis same as above. After informed consent and IV antibiotics the patient was brought to the [facility] and the ski n over [...] chart documents provided by the device company agency service representative procedure summary. 11/10/17 1150 <Electronically signed by Lior Ahmadi MD > Date Lior Ahmadi MD CC: Sangeetha Irvin DO; Lior Ahmadi MD Signed 03-Nov-2017 Office Visit Report Result: Comments: See Note; NOTES: [facility] [place] [address] OFFICE VISIT Date of Service: 11/03/17 MR#: [id number] Acct: [id number] Patient: IFEOMA ASHRAF Rep #: [id number] : 1965 Provider: Danica Pickering Age/Sex: 52/F Location: [facility] Status: Signed Comments Summary Comments: [...] in office Interview Reason: routine follow up Ready Mix Truck Driver: [employer] Name: Current VR Model: 1211-36Q ICD Serial #: [id number] Implant Date: 10/10/09 Year(s): 8 Implant Physician: [...] Model Lead 1: 7121Q/58 Serial# Lead 1: [id number] Date Implanted Lead 1: 10/10/09 Position Lead [...] Visit Report Result: Comments: See Note; NOTES: [facility] [address] [place] [address] OFFICE VISIT Date of Service: 11/03/17 MR#: [id number] Acct: [id number] Name: IFEOMA ASHRAF Rep #: [id number] : 1965 Provider: Boone Ch MD Age/Sex: 52/F Location: [facility] Status: Signed HPI HPI Details: [...] 29 (25% per echo 03/11/2015) [facility] Medical History Type 2 diabetes mellitus without [...] of automatic cardioverter/defibrillator (AICD) Z95.810 10/06/2009 @ [facility] Plan She is status post ICD [...] also being followed up at the [facility]. She is also on spironolactone [...] and Lateral Result: Comments: See Note; NOTES: [facility] Imaging Services [address] [place] [address] Chest PA and Lateral MR#: [id number] Acct: [id number] Name: IFEOMA ASHRAF Rep #: [id number] : 1965 F 52 From: Dimitris Valderrama DO PCP: Sangeetha Irvin DO Status: PRE [facility] Study: Chest PA and Lateral Date of Exam: 11/03/17 Exam# [id number] Ordering Dr: Boone Ch MD STUDY: X-RAY [...] Dimitris Valderrama DO at 18:21 EST Tel [phone], Se rvice support , CC: Boone Ch MD; Sangeetha Irvin DO Morning Nanny: Signed 14-Oct-2017 Office Visit Report Result: Comments: See Note; NOTES: [facility] [place] [address] OFFICE VISIT Date of Service: 10/12/17 MR#: [id number] Acct: [id number] Patient: IFEOMA ASHRAF Rep #: [id number] : 1965 Provider: Danica Pickering Age/Sex: 52/F Location: [facility] Status: Signed Comments Summary Comments: Single Chamber ICD Evaluation: Interrogation shows No VT/VF episodes since . No Alerts noted. Left pectoral pocket/incision w/o s/s of infection or erosion. Pt offers no cardiac complaints. Presenting rhythm shows Sinus Tachycardia @ 105 bpm. Left pectoral pocket/incision w/o s/s of infection or erosion. HEEL BOOM OPERATOR=0%. Battery longevity approx 2.9 mos. At device check in June device showed longevity of 14 mos. D/T longevity decreasing quickly pt scheduled for ICD generator el gilliam with Dr. Ahmadi on 11/10/17 @ [facility]. Lead impedances, sensing and pace/sense threshold remain stable. No parameter changes made. Counters cleared. Pt scheduled for o.v and teaching on 11/03/17 and ICD g enerator change on 11/10/17. Device Device Date Interviewed: 10/12/17 Follow- up Location: in office Interview Reason: routine follow up Ready Mix Truck Driver: 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 Model Lead 1: 7121Q/58 Serial# Lead 1: [id number] Date Implanted Lead 1: 10/10/09 Position Lead [...] IV Contrast Result: Comments: See Note; NOTES: [facility] Imaging Services [address] [place] [address] Abdomen WITH IV Contrast MR#: [id number] Acct: [id number] Name: IFEOMA ASHRAF Rep #: [id number] : 1965 F 52 From: Carl Vincent MD PCP: Sangeetha Irvin DO Status: REG CLI Study: Abdomen WITH IV Contrast Date of Exam: 06/15/17 Exam# [id number] Ordering Dr: Analisa Conway MD STUDY: CT [...] CC: Analisa Conway MD; Sangeetha Irvin DO Morning Nanny: Signed 15-Jun-2017 Spine Cervical without Contras Result: Comments: See Note; NOTES: [facility] Imaging Services [address] [place] [address] Spine Cervical without Contras MR#: [id number] Acct: [id number] Name: IFEOMA ASHRAF p #: [id number] : 1965 F 52 From: Zev Mandujano MD PCP: Sangeetha Irvin DO Status: REG CLI Study: Spine Cervical without Contras Date of Exam: 06/15/17 Exam# [id number] Ordering Dr: Analisa Conway MD STUDY: CT [...] techniques were used for this CT. [facility]. FINDINGS: Normal craniovertebral [...] CC: Analisa Conway MD; Sangeetha Irvin DO Morning Nanny: Signed 10-Feb-2017 Spine Lumbar without Contrast Result: Comments: See Note; NOTES: [facility] Imaging Services [address] [place] [address] Verdana 4d Spine Lumbar without Contrast MR#: [id number] Acct: [id number] Name: MARISEL ASHRAF Rep #: [id number] : 1965 F 51 From: Brian Gill MD PCP: Fast DO,Sangeetha Status: REG CLI Study: Spine Lumbar without Contrast Date of Exam: 02/10/17 Exam# [id number] Ordering Dr: Analisa Carr i, MD STUDY: [...] CC: Analisa Conway MD; Sangeetha Irvin DO Morning Nanny: Signed 20-Jan-2017 Liver Result: Comments: See Note; NOTES: [facility] Imaging Services [address] [place] [address] Verdana 4d Liver MR#: [id number] Acct: [id number] Name: IFEOMA ASHRAF Rep #: [id number] : 1965 F 51 From: Vincent Bui DO PCP: Sangeetha Irvin DO Status: REG CLI Study: Liver Date of Exam: 01/20/17 Exam# [id number] Ordering Dr: Sangeetha Irvin DO STUDY: ABDOMINAL [...] IMPRESSION: Fatty liver. Electronically Signed : Vincent Biu DO at 23:43 EDT Tel [phone], Service support , CC: Sangeetha Irvin DO Morning Nanny: Signed 20-Jan-2017 Thyroid Result: Comments: See Note; NOTES: [facility] Imaging Services [address] [place] [address] Verdana 4d Thyroid MR#: [id number] Acct: [id number] Name: IFEOMA ASHRAF Rep #: [id number] : 1965 F 51 From: Jin Rolon PCP: Sangeetha Irvin DO Status: REG CLI Study: Thyroid Date of Exam: 01/20/17 Exam# [id number] Ordering Dr: Sangeetha Irvin DO STUDY: THYROID [...] Service support , CC: Sangeetha Irvin DO Morning Nanny: Signed 17-Nov-2016 Dexa Bone Density Study (HP) Result: Comments: See Note; NOTES: [facility] Imaging Services [address] [place] [address] Verdana 4d Dexa Bone Density Study (HP) MR#: [id number] Acct: [id number] Name: COL HARPAL ASHRAF Rep #: [id number] : 1965 F 51 From: Prashant Delgadillo MD PCP: Sangeetha Irvin DO Status: REG CLI Study: Dexa Bone Density Study (HP) Date of Exam: 11/17/16 Exam# [id number] Ordering Dr: Sangeetha Irvin DO STUDY: DUAL [...] Prashant Delgadillo MD at 10:52 EST Tel [phone], Service support [phone], CC: Sangeetha Irvin DO Morning Nanny: Signed 17-Nov-2016 SCREENING MAMM (CAD), BILAT Result: Comments: See Note; NOTES: [facility] Imaging Services [address] [place] [address] Verdana 4d SCREENING MAMM (CAD), BILAT MR#: [id number] Acct: [id number] Name: SALOME ASHRAF Rep #: [id number] : 1965 F 51 From: Prashant Delgadillo MD PCP: Sangeetha Irvin DO Status: REG CLI Study: SCREENING MAMM (CAD), BILAT Date of Exam: 11/17/16 Exam# [id number] Ordering Dr: Gary Irvin DO MAMMOGRAPHY - BILATERAL SCREENING REASON FOR EXAM: Female, 51 years old. Routine annual screening examination. PERTINENT HISTORY: Aunt with breast cancer. History of non-Hodgkin's lymphoma. TECHNIQUE: Digital bilateral breast isamel (3D mammographic acquisition) in the CC and [...] biopsy of a clinically suspiciou s abnormality. [id number] Electronically Signed: Prashant Delgadillo MD at 12:55 EST Tel [phone], Service support [phone], CC: Sangeetha Irvin DO Morning Nanny: Signed 17-Nov-2016 SCREENING MAMM (CAD), BILAT Result: Comments: See Note; NOTES: [facility] Imaging Services [address] [place] [address] Verdana 4d SCREENING MAMM (CAD), BILAT MR#: [id number] Acct: [id number] Name: SALOME ASHRAF Rep #: [id number] : 1965 F 51 From: Prashant Delgadillo MD PCP: Sangeetha Irvin DO Status: REG CLI Study: SCREENING MAMM (CAD), BILAT Date of Exam: 11/17/16 Exam# [id number] Ordering Dr: Gary Irvin DO ADDENDUM by [...] delay biopsy of a clinically suspicious abnormality. [id number] Electronically Signed: Prashant Delgadillo MD at 13:07 EST Tel [phone], Service support [phone], 11/17/16 1315 Date cc: Sangeetha Irvin DO [...] was performed. COMPARISON: Comparison is made with [facility] r study dated August 14, 2015 and [...] delay biopsy of a clinically suspicious abnormality. [id number] Electronically Signed: Prashant Delgadillo MD at 12:55 EST Tel [phone], Ser vice support [phone], CC: Sangeetha Irvin DO Morning Nanny: Signed 19-Dec-2015 Liver Result: Comments: See Note; NOTES: [facility] Imaging Services [address] [place] [address] Verdana 4d Liver MR#: [id number] Acct: [id number] Name: IFOEMA ASHRAF Rep #: [id number] : 1965 F 50 From: Ziggy Santos MD PCP: Sangeetha Irvin DO Status: REG CLI Study: Liver Date of Exam: 12/19/15 Exam# [id number] Ordering Dr: Sangeetha Irvin DO STUDY: ABDOMINAL [...] Service support , CC: Sangeetha Irvin DO Morning Nanny: Signed 19-Dec-2015 Thyroid Result: Comments: See Note; NOTES: [facility] Imaging Services [address] [place] [address] Verdana 4d Thyroid MR#: [id number] Acct: [id number] Name: MARIOWAQASIFEOMA Abreu ep #: [id number] : 1965 F 50 From: Ziggy Santos MD PCP: Sangeetha Irvin DO Status: REG CLI Study: Thyroid Date of Exam: 12/19/15 Exam# [id number] Ordering Dr: Sangeetha Irvin DO STUDY: THYROID [...] Service support , CC: Sangeetha Irvin DO Morning Nanny: Signed 14-Aug-2015 Bilat Scrn Digital AND CAD Result: Comments: See Note; NOTES: [facility] Imaging Services [address] [place] [address] Verdana 4d Bilat Scrn Digital AND CAD MR#: [id number] Acct: [id number] Name: IFEOMA ASHRAF Rep #: [id number] : 1965 F 50 From: Prashant Delgadillo MD PCP: Sangeetha Irvin DO Status: REG CLI Study: Bilat Scrn Digital AND CAD Date of Exam: 08/14/15 Exam# [id number] Order ing Dr: Sangeetha Irvin DO MAMMOGRAPHY [...] Prashant Delgadillo MD at 10:49 EST Tel [phone], Service support [phone], CC: Sangeetha Irvin DO Morning Nanny: Signed 10-Mar-2015 Emergency Department Summary Result: Comments: See Note; NOTES: [facility] Medical Records Department [address] [place] [address] Emergency Department Summary MR#: [id number] Acct: [id number] Name: IFEOMA RASMUSSEN Rep #: [id number] : 1965 49 From: Mayito Roldan DO PCP: Sangeetha Irvin DO Status: [facility] ER DATE OF SERVICE: 02/28/2015 [...] way. Mayito Roldan DO T: NTS JOB: [id number] 03/10/15 2329 <Electronically signed by Mayito Roldan DO> Date Mayito Roldan DO CC: Sangeetha Irvin DO Date Dictated: 02/28/15824 Date Transcribed: 02/28/15824 Morning Nanny: Signed 02-Mar-2015 Emergency Department Summary Result: Comments: See Note; NOTES: [facility] Medical Records Department [address] [place] [address] Emergency Department Summary MR#: [id number] Acct: [id number] Name: IFEOMA RASMUSSEN Rep #: [id number] : 1965 49 From: Alejandro Lopez DO PCP: Sangeetha Irvin DO Status: [facility] ER DATE OF SERVICE: 02/28/2015 [...] The patient has plans to go to [facility] on General. I will give her local surgeon's name if she wants to speak with them or she can certainly also speak with Dr. Irvin. CLINICAL IMPRESSION: Biliary colic. Alejandro Lopez DO T: ROCK JOB: [id number] 03/02/15 0743 <Electronically signed by Alejandro Lopez DO> Date Alejandro Lopez DO CC: Sangeetha Irvin DO Date Dictated: 718 Date Transcribed: 02/28/15718 Morning Nanny: Signed 28-Feb-2015 Discharge Instruction Result: Comments: See Note; NOTES: [facility] Medical Records Department [address] [place] [address] Discharge Instruction 02/28/15 0639 MR#: [id number] Acct: [id number] Name: IFEOMA ASHRAF Rep #: [id number] : 1965 49 From: Alejandro Lopez DO [...] any unexpected problems, contact your doctor. Call [facility] ([phone]) or report to the closest Em ergency Room. Call 911 if necessary. 02/28/15 0640 <Electronically signed by Alejandro Lopez DO> Date Alejandro Lopez DO Cosign er Signature (If Indicated): Date CC: Sangeetha Irvin DO 28-Feb-2015 Gallbladder Result: Comments: See Note; NOTES: [facility] Imaging Services [address] [place] [address] Ultrasound Report MR#: [id number] Acct: [id number] Name: IFEOMA ASHRAF Rep #: [id number] : 1965 F 49 From: Prashant Delgadillo MD PCP: Sangeetha Irvin DO Status: REG ER Study: Gallbladder Date of Exam: 02/28/15 Exam# [id number] Ordering Dr: Alejandro Lopez DO STUDY: ABDOM [...] Prashant Delgadillo MD at 8:15 EDT Tel [phone], Service support [phone], CC: Alejandro Lopez DO; Sangeetha Irvin DO Morning Nanny: Signed 11-Feb-2015 Spine Cervical without Contras Result: Comments: See Note; NOTES: [facility] Imaging Services [address] [place] [address] CAT Scan Report MR#: [id number] Acct: [id number] Name: IFEOMA ASHRAF Rep #: [id number] : 1965 F 49 From: Prashant Delgadillo MD PCP: Sangeetha Irvin DO Status: REG CLI Study: Spine Cervical without Contras Date of Exam: 02/11/15 Exam# [id number] Ordering Dr: Analisa Conway MD STUDY: CT [...] Prashant Delgadillo MD at 9:49 EDT Tel [phone], Service support [phone], CC: Analisa Conway MD; Sangeetha Irvin DO Morning Nanny: Signed 18-Jul-2014 Bilat Scrn Digital & CAD Result: Comments: See Note; NOTES: [facility] Imaging Services [address] [place] [address] Breast Imaging Report MR#: [id number] Acct: [id number] Name: IFEOMA ASHRAF Rep # : [id number] : 1965 F 49 From: Prashant Delgadillo MD PCP: Sangeetha Irvin DO Status: REG CLI Exam# [id number] Ordering Dr: Sangeetha Irvin DO MAMMOGRAPHY - [...] Prashant Delgadillo MD at 8:36 EDT Tel [phone], Servi ce support [phone], CC: Sangeetha Irvin DO Morning Nanny: Signed 18-Jul-2014 Liver Result: Comments: See Note; NOTES: [facility] Imaging Services [address] [place] [address] Ultrasound Report MR#: [id number] Acct: [id number] Name: IFEOMA ASHRAF Rep #: : 1965 F 49 From: Prashant Delgadillo MD PCP: Sangeetha Irvin DO Status: REG CLI Study: Liver Date of Exam: 07/18/14 Exam# [id number] Ordering Dr: Sangeetha Irvin DO STUDY: ABDOMINAL [...] Prashant Delgadillo MD at 9:34 EDT Tel [phone], Service support [phone], CC: Sangeetha Irvin DO Morning Nanny: Signed 18-Jul-2014 Thyroid Result: Comments: See Note; NOTES: [facility] Imaging Services [address] [place] [address] Ultrasound Report MR#: [id number] Acct: [id number] Name: IFEOMA ASHRAF Rep #: [id number] : 1965 F 49 From: Prashant Delgadillo MD PCP: Sangeetha Irvin DO Status: REG CLI Study: Thyroid Date of Exam: 07/18/14 Exam# [id number] Ordering Dr: Sangeetha Irvin DO STUDY: THYROID [...] Delgadillo MD at 8:41 EDT T el [phone], Service support [phone], CC: Sangeetha Irvin DO Morning Nanny: Signed 05-Feb-2014 Brain/Head W/WO Contrast Result: Comments: See Note; NOTES: [facility] Imaging Services [address] [place] [address] CAT Scan Report MR#: [id number] Acct: [id number] Name: IFEOMA ASHRAF Rep #: [id number] : 1965 F 48 From: Prashant Delgadillo MD PCP: Sangeetha Irvin DO Status: REG CLI Study: Brain/Head W/WO Contrast Date of Exam: 02/05/14 Exam# [id number] Ordering Dr: Sangeetha Irvin DO STUD Y: [...] Prashant Delgadillo MD at 9:19 EDT Tel [phone], Service support [phone], CC: Sangeetha Irvin DO Morning Nanny: Signed Immunization Name Dates Details Influenza (3 years and up) on: 10-Jul-2008 Comments: injection given in left deltoid, pt tolerated welllot # [id number] Influenza (3 years and up) on: 09-Jul-2009 Comments: Lot #[id number]-right deltoidDose0.5mlgiven by Juventino Nye LPN Family History [...] kg/m2 Body Surface Area Calculated 2.02 m2 61-Qwq-181836:59 Temperature 97.9 f Comments: Method: Temporal Pulse [...] kg/m2 Body Surface Area Calculated 2.02 m2 42-Hiw-349759:08 Temperature 97.3 f Comments: Method: Temporal Pulse [...] Value Details :59 BNP,B-Type NATRIURETIC PEPTIDE Comments: [facility] Bmxvduczce3689 [facility] [address]. [place], [place], [id number] B-TYPE JACKIE PEP 819.3 pg/mL (Abnormal) Range: 0-100 :59 CBC W/Diff, Automated Comments: [facility] Mxqloisbub3972 [facility] [address]. [place], [place], [address] Absolute Lymph 1.08 {X10_3/ul} (Normal) Range: 0.83-4.51 [...] 4.2-5.4 WBC 7.5 K/mm3 (Normal) Range: 4.4-11.0 52-Wzc-422126:59 Comprehensive Metabolic Profil Comments: 'TROP' Serial specimen #1, #2, #3, or #4: [address] [place] [address] [address] [place], [place], [address] GAP 8 (Normal) Range: 5-15 CO2 29.0 [...] A.D.A. criteria.Please note revised GLUCOSE reference range amrbbyujd92/02/2018. 59-Ybk-884894:59 CPK Total, Creatine Kinase Comments: 'TROP' Serial specimen #1, #2, #3, or #4: [address] [place] [address] [place], [address] CPK TOTAL 30 U/L (Normal) Range: 26-192 71-Snc-548615:59 D-Dimer Quantitative (DVT/PE) Comments: [facility] [address] [place], [address] D-DIMER QUANT 1.44 {FEU/ug/m} (Abnormal) Range: 0.27-0.49 Comments: CRITICAL VALUE VERIFIED. CALLED TO QXCCOMZM20/10/18 1440 Francois Quinn.RESULTS READ BACK BY SAME .D-Dimer ELEVATED (>0.49): Additional studies and clinicalassessments are indicated to conclude di agnosis of:Deep Vein Thrombosis (DVT) or Pulmonary Embolism (PE) 30-Jyj-151350:59 Troponin-I Comments: 'TROP' Serial specimen #1, #2, #3, or #4: [address] [place] [address] [place], [address] TROPONIN-I 0.030 ng/mL (Normal) Comments: TROPONIN-I EXPECTED VALUES <0.045 Negative 0.045 - 0.590 Consistent with Cardiac Damage > OR = 0.600 Critical Value Not every elevated troponin is indicative of CT. T hesevalues should be used with clinical judgement in examiningthe patient's clinical picture for diagnosis. To establisha diagnosis of CT versus myocardial injury, there must be ademonstrated rise and/ or fall in the troponin values, inaddition to ischemic symptoms, EKG changes, new regionalwall motion abnormality, and/or angiographical evidence. PLEASE NOTE: REFERENCE RANGES EDITED 02/06/1829-Aug-20189-Alg-469150:44 ANCA Comments: Is Patient Fasting? [facility] (refer to report for specific site)refer to report for address and phone number Atypical pANCA <1:20 {titer} (Normal) Comments: The atypical pANCA pattern has been observed in asignificant percentage of patients with ulcerative colitis,primary sclerosing cholangitis and autoimmune hepatitis.Performed at: [facility] [address] [id number] Director: Omar Hood PhD, Phone: [phone] PERINUCLEAR Ab <1:20 {titer} (Normal) Comments: The presence of positive fluorescence exhibiting P-ANCA orC-ANCA patterns alone is not specific for the diagnosis ofWegener's Granulomatosis (WG) or microscopic polyangiitis.Decisions about treatment sh ould not be based solely onANCA IFA results. The International ANCA Group Consensusrecommends follow up testing of positive sera with both IN-3 and MPO- ANCA enzyme immunoassays. As many as 5% serumsamp les are positive only by EIA. Ref. AM J Clin Risnef0047;111:507-513. CYTOPLASMIC Ab <1:20 {titer} (Normal) 0-Gbe-229425:44 ANTINUCLEAR ANTIBODIES DIRECT Comments: [facility] (refer to report for specific site)refer to report for address and phone number LASHA-DIRECT Negative (Normal) Comments: Performed at: [facility] [id number] Director: Omar Hood PhD, Phone: [phone] 5-Szl-808508:44 CPK Total, Creatine Kinase Comments: [facility] [address] [place], [place], [address] CPK TOTAL 33 U/L (Normal) Range: 26-192 9-Bec-304361:44 Hemoglobin A1c Comments: [facility] [address] [place], [place], [address] HGB A1C 10.6 % (Abnormal) Range: 4.2-6.3 9-Qao-634268:44 PRANEETH AND PE, Random UR Comments: Is Patient Fasting? [facility] (refer to report for specific site)refer to report for address and phone number NOTE Comment (Normal) Comments: Protein electrophoresis scan will follow via computer,mail, or emt basic delivery. PRANEETH RESULT,U Comment (Normal) Comments: No monoclonality detected. M-SPIKE,UR% Not Observed % (Normal) GAMMA GLOB,U 5.5 % (Normal) BETA GLOB,U 14.2 % (Normal) CPGXQ-1-ANTW,U 10.8 % (Normal) MMBBG-0-GWPA,U 7.6 % (Normal) ALBUMIN,U 62.0 % (Normal) PROTEIN,UR 27.8 mg/dL (Normal) 8-Dhl-620851:44 PRANEETH + Protein Elect, Serum Comments: Is Patient Fasting? [facility] (refer to report for specific site)refer to report for address and phone number NOTE: Comment (Normal) Comments: Protein electrophoresis scan will follow via computer,mail, or emt basic delivery. PRANEETH RESULT,S Comment (Normal) Comments: No monoclonality detected. A/G RATIO 1.2 (Normal) Range: 0.7-1.7 GLOBULIN, TOTAL 2.9 g/dL (Normal) Range: 2.2-3.9 M-SPIKE g/dL (Normal) Comments: Not Observed GAMMA GLOBULIN 0.6 g/dL (Normal) Range: 0.4-1.8 BETA GLOBULIN 1.1 g/dL (Normal) Range: 0.7-1.3 TZTHR-9-VTIW 0.9 g/dL (Normal) Range: 0.4-1.0 TGYCX-0-XYSN 0.3 g/dL (Normal) Range: 0.0-0.4 ALBUMIN 3.4 g/dL (Normal) Range: 2.9-4.4 IMMUNOGL M 103 mg/dL (Normal) Range: 26-217 IMMUNO A 69 mg/dL (Abnormal) Range: 87-352 IMMUNO G 538 mg/dL (Abnormal) Range: 700-1600 PROTEIN,TOTAL 6.3 g/dL (Normal) Range: 6.0-8.5 7-Gfu-630180:44 Rheumatoid Factor Comments: [facility] [address] [place], [place], [address] RHEUMATOID FAC < 10.0 {IU/mL} (Normal) 7-Nuj-239762:44 Sjogren's Antibodies A/B Comments: [facility] (refer to report for specific site)refer to report for address and phone number Anti-SS-B < 0.2 {AI} (Normal) Range: 0.0-0.9 Anti-SS-A < 0.2 {AI} (Normal) Range: 0.0-0.9 8-Khm-669366:44 Thyroid Stim Hormone (TSH) Comments: [facility] [address] [place], [address] TSH 2.71 {uIU/mL} (Normal) Range: 0.358-3.74 8-Vyg-539684:44 Vitamin B12 1303 pg/mL (Abnormal) Comments: [facility] [address] [place], [address] Range: 211-911 :44 Vitamin D,25 Hydroxy Comments: [facility] [address] [place], [address] Vitamin D 25-OH 62.4 ng/mL (Normal) Range: 29.95-100.01 Comments: Vitamin D 25(OH) Status Range Deficiency <20 ng/mL (50nmol/L) Insuffciency 20 - 30 ng/mL (50 - 75 nmol/L) Sufficiency 30 - 100 ng/mL (75 - 250 nmol/L) Toxicity >100 ng/mL (>250 nmol/L) 6-Zcx-840079:06 Basic Metabolic Profile (BMP) Comments: PLEASE FAX TO DR. CANTU [phone] [facility] Hospital [address]hp[address] [place], [address] GAP 12 (Normal) Range: 5-15 CO2 26.0 [...] A.D.A. criteria.Please note revised GLUCOSE reference range csiysldme64/02/2018. 28-Cwb-29025:22 CBC W/Diff, Automated Comments: BMP TO DULCE TIMMONS.CBCD, TSH, B12 TO DR. SANGEETHA IRVIN.[facility] [address] [place], [address] Absolute Lymph 1.16 {X10_3/ul} (Normal) Range: 0.83-4.51 [...] 4.2-5.4 WBC 8.0 K/mm3 (Normal) Range: 4.4-11.0 20-Ttk-58996:22 Vitamin B12 659 pg/mL (Normal) Comments: BMP TO DULCE [facility].CBCD, TSH, B12 TO DR. SANGEETHA IRVIN.[facility] [address] [place], [address] Range: 211-911 07-Iig-15719:20 Basic Metabolic Profile (BMP) Comments: BMP TO DULCE [facility].CBCD, TSH, B12 TO DR. SANGEETHA IRVIN.[facility] [address] [place], [place], [address] GAP 9 (Normal) Range: 5-15 CO2 27.0 [...] A.D.A. criteria.Please note revised GLUCOSE reference range otxmasngr18/02/2018. 71-Vlr-79233:20 Thyroid Stim Hormone (TSH) Comments: BMP TO DULCE [facility].CBCD, TSH, B12 TO DR. SANGEETHA IRVIN.[facility] [address] [place], [place], [address] TSH 4.09 {uIU/mL} (Abnormal) Range: 0.358-3.74 21-Jkg-335291:23 Basic Metabolic Profile (BMP) Comments: [facility] [address]xwzap[address] [place], [address] GAP 7 (Normal) Range: 5-15 CO2 30.0 [...] A.D.A. criteria.Please note revised GLUCOSE reference range smuibunpo16/02/2018. 29-Jax-285540:23 BNP,B-Type NATRIURETIC PEPTIDE Comments: [facility] [address] [place], [address] B-TYPE JACKIE PEP 892.7 pg/mL (Abnormal) Range: 0-100 83-Zio-550253:23 CBC W/Diff, Automated Comments: [facility] [address]fcmcybb26[address] [place], [address] Absolute Lymph 1.23 {X10_3/ul} (Normal) Range: 0.83-4.51 [...] 4.2-5.4 WBC 7.2 K/mm3 (Normal) Range: 4.4-11.0 19-Hio-344442:41 CBC W/Diff, Automated Comments: Reason for Laboratory Test .[facility] [address] [facility]. [place], [place], [address] Absolute Lymph 0.85 {X10_3/ul} (Normal) Range: 0.83-4.51 [...] 4.2-5.4 WBC 5.7 K/mm3 (Normal) Range: 4.4-11.0 06-Ncx-120005:41 Comprehensive Metabolic Profil Comments: Reason for Laboratory Test .Serial Specimen #1, #2 or #3? 1[facility] [address] [place], [address] GAP 8 (Normal) Range: 5-15 CO2 28.0 [...] A.D.A. criteria.Please note revised GLUCOSE reference range hkzzzbdei30/02/2018. 00-Uma-466073:41 LDH 224 U/L (Normal) Comments: Reason for Laboratory Test .Serial Specimen #1, #2 or #3? 1[facility] [address] [place], [place], [address] Range: 84-246 1-Kqs-728892:41 URINE GENESIS CULTURE-IDENTIFICATN Comments: add to urine in lab; PATIENT NOT FASTINGPERFORMED BY: [facility] Kmtqbe8898 [facility] [id number] Information: SRC:JUAN ([id number]) Result 1 ENTEAE (Abnormal) Comments: Enterobacter aerogenes1,000 [...] S Urine Final report Culture,Comprehensi (Abnormal) ve 66-Fxu-88802:46 AFP, Tumor Marker Comments: Is Patient ? [facility] (refer to report for specific site)refer to report for address and phone number AFP TUMOR 2253 10.0 ng/mL (Abnormal) Range: 0.0-8.3 Comments: Khanh ECLIA methodologyPerformed at: CB - [facility] [address]07[address] [place], [place] [id number] Director: Omar Hood PhD, Phone: [phone] CBC W/Diff, Automated Comments: [facility] [address] [place], [place], [address] Absolute Lymph 0.95 {X10_3/ul} (Normal) Range: 0.83-4.51 [...] T4F TO BLOOD FROM 05-25-18 G2 5 [facility] [address] [place], [address] GAP 9 (Normal) Range: 5-15 CO2 28.0 [...] A.D.A. criteria.Please note revised GLUCOSE reference range kelumbwvy47/02/2018. :46 Digoxin Level Comments: [facility] [address] [place], [address] DIG 0.71 ng/mL (Abnormal) Range: 0.80-2.00 :46 Free T3 Comments: PLEASE ADD T3F T4F TO BLOOD FROM 05-25-18G2 [address] [place] [address] [address] [place], [place], [address] FREE T3 3.2 pg/mL (Normal) Range: 2.18-3.98 :46 Hemoglobin A1c Comments: [facility] [address] [place], [place], [address] HGB A1C 5.4 % (Normal) Range: 4.2-6.3 :46 Lipid Profile Comments: PLEASE ADD T3F T4F TO BLOOD FROM 05-25-18G2 [address] [place] [address] [address] [place], [place], [address] VLDL 22 mg/dL (Normal) Range: 5-40 LDL [...] High Risk :46 Microalb:Creat Ratio,Random UR Comments: [facility] [address] [place], [place], [address] MALB:CREAT 7.8 {mg/g_CRE} (Normal) MICROALBUMIN,UR 10.9 mg/L (Normal) UR CREAT 139.00 mg/dL (Normal) :46 T4 Free Direct Comments: PLEASE ADD T3F T4F TO BLOOD FROM 05-25-18G2 [address] [place] [address] [address] [place], [address] T4 FREE DIRECT 1.11 ng/dL (Normal) Range: 0.76-1.46 :46 Thyroid Stim Hormone (TSH) Comments: PLEASE ADD T3F T4F TO BLOOD FROM 05-25- THG2 5 [facility] [address] [place], [address] TSH 0.31 {uIU/mL} (Abnormal) Range: 0.358-3.74 :46 Urinalysis, Complete Comments: How was Urine Obtained? [facility] [address]uhgseoz98[address] [place], [address] MUCUS, URINE 0 SEEN [...] :46 Vitamin B12 368 pg/mL (Normal) Comments: [facility] Wkeaukshae40[address] [place], [address] Range: 211-911 :46 Vitamin D,25 Hydroxy Comments: [facility] Zrwmyvzxfh4517 [place], [address] Vitamin D 25-OH 64.5 ng/mL (Normal) Range: 29.95-100.01 Comments: Vitamin D 25(OH) Status Range Deficiency <20 ng/mL (50nmol/L) Insuffciency 20 - 30 ng/mL (50 - 75 nmol/L) Sufficiency 30 - 100 ng/mL (75 - 250 nmol/L) Toxicity >100 ng/mL (>250 nmol/L) 67-Lvx-558736:52 Urinalysis, Complete Comments: Order Date: 04/06/18Has pt arrived? YHow was Urine Obtained? [facility] [address]vzouy[address] [place], [place], [address] HYALINE CAST 5-10 SEEN {/lpf} (Normal) Range: [...] (Normal) CLARITY Cloudy (Normal) COLOR Yellow (Normal) 21-Wku-601248:30 CBC W/Diff, Automated Comments: [facility] [address]iv[address] [place], [address] OVALOCYTE RARE (Normal) MACROCYTE 1+ [...] 4.2-5.4 WBC 9.1 K/mm3 (Normal) Range: 4.4-11.0 78-Ncj-064667:30 Comprehensive Metabolic Profil Comments: [facility] [address] [place], [place], [address] GAP 12 (Normal) Range: 5-15 CO2 30.0 [...] Comments: Please note revised GLUCOSE reference range erookjdkm49/02/2018. 25-Zjc-849565:30 Lactic Acid Comments: Yes/No query for Sepsis Lactate Rule [facility] [address] [place], [place], [address] LACTIC ACID 6.7 mmol/L (Abnormal) Range: 0.4-2.0 Comments: Critical Result(s) Called Lisa RIVERA at: 20:23: by: BRITTANY TORRES 70-Jru-776222:30 Partial Thromboplast Time Comments: [facility] [address] [place], [place], [address] PTT 41.3 s (Abnormal) Range: 24.1-36.2 27-Alz-889425:30 Prothrombin Time w/INR Comments: [facility] [address] [place], [place], [address] INR 2.3 (Normal) PROTIME 25.6 s (Abnormal) Range: 11.7-14.9 02-Tyc-575407:30 Troponin-I Comments: [facility] [address]xs[address] [place], [place], [address] TROPONIN-I 0.046 ng/mL (Abnormal) Comments: TROPONIN-I EXPECTED VALUES <0.045 Negative 0.045 - 0.590 Consistent with Cardiac Damage > OR = 0.600 Critical Value Not every elevated troponin is indicative of CT. T hesevalues should be used with clinical judgement in examiningthe patient's clinical picture for diagnosis. To establisha diagnosis of CT versus myocardial injury, there must be ademonstrated rise and/ or fall in the troponin values, inaddition to ischemic symptoms, EKG changes, new regionalwall motion abnormality, and/or angiographical evidence. PLEASE NOTE: REFERENCE RANGES EDITED 02/06/1805-Apr-201813-Wfe-387179:08 Ammonia Comments: [facility] [address] [place], [place], [address] AMMONIA 20.0 umol/L (Normal) Range: 11-32 47-Xqo-472763:08 CBC-Complete Blood Cnt No Diff Comments: [facility] [address] [place], [place], [address] MPV 10.6 fL (Normal) Range: 6.2-12.0 PLT [...] 4.2-5.4 WBC 6.6 K/mm3 (Normal) Range: 4.4-11.0 90-Sxn-843963:08 Comprehensive Metabolic Profil Comments: [facility] [address] [place], [place], [address] GAP 9 (Normal) Range: 5-15 CO2 35.0 [...] Comments: Please note revised GLUCOSE reference range hfruldtit62/02/2018. 67-Fud-380646:08 Differential Comment Comments: [facility] [address] [place], [address] SMEAR COMMENT COMMENT (Normal) Comments: SLIDE SCANNED - 1+ ANISO NOTED. 12-Yjj-51367:55 Urinalysis, Complete Comments: How was Urine Obtained? [facility]WK[facility] [address]utdfv[address] [place], [address] AMORPHOUS 2+ (Normal) HYALINE CAST [...] (Normal) :55 Urine Drug Screen (VISTA) Comments: [facility] [address]eb[address] [place], [address] TO BE CONFIRMED (Normal) Comments: [...] USE TESTMNEMONIC: UTCA :59 Bedside Glucose Comments: [facility] LaboratoryPoint of Pfca[address] [place] [address] BEDSIDE GLU 169 mg/dL (Abnormal) Range: 70-110 Comments: MANAGEMENT OF PATIENT CARE PER NURSING PROTOCOL :35 Basic Metabolic Profile (BMP) Comments: [facility] [address]pbxz[address] [place], [place], [address] GAP 16 (Abnormal) Range: 5-15 CO2 15.0 mmol/L (Abnormal) Range: 21.0-32.0 CL 104 mmol/L (Normal) Range: 98-107 K 6.2 mmol/L (Abnormal) Range: 3.5-5.1 Comments: Critical Result(s) Called at: 01:06:28 03/08/2018 by:ANSLEY STANFORD,DIRECTOR OF INSTRUCTION NA 135 mmol/L (Abnormal) Range: 136-145 CA [...] A.D.A. criteria.Please note revised GLUCOSE reference range wpziakgej87/02/2018. 87-Ork-207854:59 Acetaminophen (Tylenol) Level Comments: [facility] [address] [place], [place], [address] ACETAMINOPHEN 4.9 ug/mL (Abnormal) Range: 10.0-30.0 Comments: Slight Icterus, Result may be falsely decreased. 30-Vgx-204324:59 Acetone Serum Comments: [facility] [address] [place], [address] ACETONE SERUM NEGATIVE (Normal) 45-Pjs-034903:59 Alcohol, Blood (Medical)-Serum Comments: [facility] [address] [place], [address] SERUM ETOH 8.0 mg/dL (Normal) Comments: The serum:whole blood ethanol ratio is approximately 1.14and varies slightly with hematocrit.Medical Alcohol reference interval and critical value innon-tolerant individuals; 50 - 100 Impairment 100 Intoxication 100 - 250 Severe Poisoning 250 - 400 Deep/possible fatal coma 32-Wnl-208757:59 Digoxin Level Comments: [facility] [address]quonx[address] [place], [address] DIG 0.32 ng/mL (Abnormal) Range: 0.80-2.00 74-Ely-919402:59 Lactic Acid Comments: Yes/No query for Sepsis Lactate Rule [facility] [address]uxo[address] [place], [address] LACTIC ACID 12.4 mmol/L (Abnormal) Range: 0.4-2.0 Comments: Critical Result(s) Called at: 00:52:58 03/08/2018 by:ANSLEY OWENSDIRECTOR OF INSTRUCTION 48-Ymv-702902:59 Partial Thromboplast Time Comments: [place] [address] [place], [address] PTT 33.7 s (Normal) Range: 24.1-36.2 32-Bsg-827979:59 Prothrombin Time w/INR Comments: [place] [address] [place], [address] INR 2.4 (Normal) PROTIME 26.4 s (Abnormal) Range: 11.7-14.9 :59 Salicylate Comments: [place] [address] [place], [address] SALICYLATE < 1.7 mg/dL (Abnormal) Range: 2.8-20.0 Comments: Slight Icterus, Result may be falsely decreased. 36-Gqi-648410:02 Blood Gases by [facility] Comments: [facility] LaboratoryPoint of [address] [place] [address] SO2 ISTAT 99 % (Normal) Range: [...] Radial (Normal) BLD GAS TYPE ART (Normal) 89-[id number] Bedside Glucose Comments: [facility] [id number] [place] [address] BEDSIDE GLU 214 mg/dL (Abnormal) Range: 70-110 Comments: MANAGEMENT OF PATIENT CARE PER NURSING PROTOCOL [id number]-[id number] Basic Metabolic Profile (BMP) Comments: [facility] [id number] [place], [place], [id number] GAP 19 (Abnormal) Range: 5-15 CO2 11.0 [...] A.D.A. criteria.Please note revised GLUCOSE reference range xcgmesufc97/10/2017. 23-Ize-[id number]:37 CBC W/Diff, Automated Comments: [facility] [id number] [place], [id number] CRENATED RBC 1+ (Normal) ANISO 1+ (Normal) [...] 4.2-5.4 WBC 5.5 K/mm3 (Normal) Range: 4.4-11.0 41-[id number]:37 Lipase Comments: [facility] [id number] [place], [id number] LIPASE 86 U/L (Normal) Range: 73-393 18-Upw-140592:37 Liver Profile Comments: [facility] [address] [place], [address] D BILI 1.07 mg/dL (Abnormal) Range: 0.00-0.30 T BILI 2.40 mg/dL (Abnormal) Range: 0.20-1.00 ALT 120 U/L (Abnormal) Range: 13-56 ALK P 94 U/L (Normal) Range: 45-117 AST 149 U/L (Abnormal) Range: 15-37 Comments: Moderate Hemolysis, Result may be falsely increased. GLOB 2.9 g/dL (Normal) Range: 2.2-4.2 ALB 3.0 g/dL (Abnormal) Range: 3.2-5.0 T PROT 5.9 g/dL (Abnormal) Range: 6.4-8.2 37-Rzy-243181:37 Magnesium Comments: [facility] [address] [place], [address] MG 2.0 mg/dL (Normal) Range: 1.6-2.6 Comments: Moderate Hemolysis, Result may be falsely increased. 79-Xwu-015523:37 Troponin-I Comments: [facility] [address] [facility] [address] [place], [place], [address] TROPONIN-I 0.081 ng/mL (Abnormal) Comments: TROPONIN-I EXPECTED VALUES <0.045 Negative 0.045 - 0.590 Consistent with Cardiac Damage > OR = 0.600 Critical Value Not every elevated troponin is indicative of CT. T hesevalues should be used with clinical judgement in examiningthe patient's clinical picture for diagnosis. To establisha diagnosis of CT versus myocardial injury, there must be ademonstrated rise and/ or fall in the troponin values, inaddition to ischemic symptoms, EKG changes, new regionalwall motion abnormality, and/or angiographical evidence. PLEASE NOTE: REFERENCE RANGES EDITED 02/06/1824-Feb-20180-Htx-499579:21 CMV ANTIBODY (71484) Comments: today; PATIENT NOT FASTINGPERFORMED BY: [facility]Saint [facility] HospitalCxuyjn9869 [facility] [id number] Cytomegalovirus (CMV) Ab, IgG <0.60 U/mL (Normal) Range: 0.00-0.59 Comments: Negative <0.60 Equivocal 0.60 - 0.69 Positive >0.69 8-Zna-138405:21 HEPATITIS PANEL (65233) Comments: today; PATIENT NOT FASTINGPERFORMED BY: [facility]6370 [facility] [id number] Hep C Virus Ab <0.1 {s/co_ratio} (Normal) Range: 0.0-0.9 Comments: Negative: < 0.8 Indeterminate: 0.8 - 0.9 Positive: > 0.9 . The CDC recommends that a positive HCV antibody result be followed up with a HCV Nucleic Acid Amplification test (406790). Hep B Core Ab, IgM Negative (Normal) HBsAg Screen Negative (Normal) Hep A Ab, IgM Negative (Normal) 6-Nmy-650468:21 EBV Panel (34433) Comments: today; PATIENT NOT FASTINGPERFORMED BY: [facility]6370 [facility] [id number] Interpretation: SPRCS (Normal) Comments: EBV Interpretation Chart [...] <36.0 Equivocal 36.0 - 43.9 Positive >43.9 25-Wta-468600:19 CBC W/Diff, Automated Comments: Order Date: 02/23/18Order Info: 0184-1 - CBCDOrder Info: 71205-1 - [facility] [address] [place], [address] MACROCYTE 1+ (Normal) ANISO RARE (Normal) [...] 4.2-5.4 WBC 6.9 K/mm3 (Normal) Range: 4.4-11.0 65-Zpi-812487:19 Comprehensive Metabolic Profil Comments: Order Date: 02/23/18Order Info: 0786-1 - CMPOrder Info: 1798-8 - AMYOrder Info: 3040-3 - LIPASEBrown [facility] Hospital [address]yrzlx[address] [place], [address] GAP 11 (Normal) Range: 5-15 CO2 25.0 [...] A.D.A. criteria.Please note revised GLUCOSE reference range ggtjicbtv26/02/2018. 01-Afj-875226:19 Erythrocyte Sed Rate Comments: Order Date: 02/23/18Order Info: 0184-1 - CBCDOrder Info: 52891-7 - [facility]WK[facility] [address]bmws[address] [place], [address] SED RATE 16 mm/h (Normal) Range: 0-30 81-Mqb-741511:19 Lipase (91615) Comments: Order Date: 02/23/18Order Info: 0786- 1 - CMPOrder Info: 1798-8 - AMYOrder Info: 3040-3 - LIPASEBrown [facility] Hospital [address]jg[address] [place], [address] LIPASE 92 U/L (Normal) Range: 73-393 44-Jku-971758:19 Amylase (66787) Comments: Order Date: 02/23/18Order Info: 0786- 1 - CMPOrder Info: 1798-8 - AMYOrder Info: 3040-3 - LIPASEBrown [facility] Hospital [address] [place], [address] ARIAN 27 U/L (Normal) Range: 25-115 3-Pcf-345759:15 Amylase Comments: CMP, CBCD IS FOR DR ORONA IS FOR [facility] [address] [place], [address] ARIAN 29 U/L (Normal) Range: 25-115 1-Ung-837716:15 CBC W/Diff, Automated Comments: CMP, CBCD IS FOR DR ORONA IS FOR [facility] [address] [place], [address] ANISO 1+ (Normal) Absolute Lymph 0.41 {X10_3/ul} [...] 4.2-5.4 WBC 5.3 K/mm3 (Normal) Range: 4.4-11.0 7-Lyg-376009:15 Comprehensive Metabolic Profil Comments: CMP, CBCD IS FOR DR COLÓNT IS FOR DR PATELKettering Health Hamilton Wymtyibudr5281 [facility] SystemcarrieCar[facility], [place], [address] GAP 9 (Normal) Range: 5-15 CO2 27.0 [...] A.D.A. criteria.Please note revised GLUCOSE reference range eubkiunic25/02/2018. 4-Xjf-430956:15 Digoxin Level Comments: CMP, CBCD IS FOR DR ORONA IS FOR [facility] [address] [place], [place], [address] DIG 0.92 ng/mL (Normal) Range: 0.80-2.00 1-Csh-445253:15 Lipase Comments: KEVIN, CBCD IS FOR DR ORONA IS FOR [facility] [address] [place], [place], [address] LIPASE 101 U/L (Normal) Range: 73-393 5-Kbz-868261:15 Lipid Profile Comments: KEVIN, CBCD IS FOR DR ORONA IS FOR [facility] [address]qps[address] [place], [place], [address] VLDL 15 mg/dL (Normal) Range: 5-40 LDL [...] 200-240 mg/dL Borderline >240 mg/dL High Risk 8-Suv-558167:15 Magnesium Comments: CMP, CBCD IS FOR DR ORONA IS FOR [facility] [address] [place], [address] MG 1.8 mg/dL (Normal) Range: 1.6-2.6 4-Zkp-332431:15 Microalb:Creat Ratio,Random UR Comments: CMP, CBCD IS FOR DR ORONA IS FOR [facility] [address] [place], [address] MALB:CREAT 34.3 {mg/g_CRE} (Abnormal) MICROALBUMIN,UR 58.6 mg/L (Normal) UR CREAT 171.00 mg/dL (Normal) 8-Pag-905698:15 Thyroid Stim Hormone (TSH) Comments: CMP, CBCD IS FOR DR ORONA IS FOR [facility] [address] [place], [address] TSH 1.84 {uIU/mL} (Normal) Range: 0.358-3.74 1-Tzo-106869:15 Vitamin B12 383 pg/mL (Normal) Comments: CMP, CBCD IS FOR DR ORONA IS FOR [facility] [address] [place], [address] Range: 211-911 6-Vbr-531238:15 Vitamin D,25 Hydroxy Comments: CMP, CBCD IS FOR DR ORONA IS FOR [facility] [address] [place], [address] Vitamin D 25-OH 72.0 ng/mL (Normal) Range: 29.95-100.01 Comments: Vitamin D 25(OH) Status Range Deficiency <20 ng/mL (50nmol/L) Insuffciency 20 - 30 ng/mL (50 - 75 nmol/L) Sufficiency 30 - 100 ng/mL (75 - 250 nmol/L) Toxicity >100 ng/mL (>250 nmol/L) 55-Hzz-425719:14 Blood Glucose , Office (52455) Blood Glucose , Office 137 (Normal) 12-Hpj-648243:14 HgA1C , Office (15995) HgA1C , Office 6.1 % (Normal) Range: 4.6 - 7.1 :35 CBC W/Diff, Automated Comments: [facility] [address] [place], [place], [address] Absolute Lymph 1.30 {X10_3/ul} (Normal) Range: 0.83-4.51 [...] Metabolic Profil Comments: Reason for Laboratory Test OVBrown [facility] Hospital [address]vbcj[address] [place], [place], [address] GAP 8 (Normal) Range: 5-15 CO2 31.0 mmol/L (Normal) Range: 21.0-32.0 CL 99 mmol/L (Normal) Range: 98-107 K 3.4 mmol/L (Abnormal) Range: 3.5-5.1 NA 138 mmol/L (Normal) Range: 136-145 T BILI 0.70 mg/dL (Normal) Range: 0.20-1.00 ALT 27 U/L (Normal) Range: 13-56 Comments: Please note revised ALT reference range nuletdaml34/28/2018. ALK P 102 U/L (Normal) Range: 45-117 [...] A.D.A. criteria.Please note revised GLUCOSE reference range kqjjwriep26/02/2018. 90-Muh-61913:33 LDH 198 U/L (Normal) Comments: Reason for Laboratory Test OVSerial Specimen #1, #2 or #3? 1WKettering [facility] [address] [place], [address] Range: 84-246 80-Ron-693973:15 Culture, Urine Comments: [facility] [address] [place], [place], [address] CUUR See Note (Normal) Comments: VERBAL ORDER DR. IRVIN'S OFFICE Urine CultureORGANISM 1: Mixed Gram Positive OrganismsColony Count 11,000-25,000MIX CULTURE Mixed contaminants. Submit a new specimen if indicated. 33-Pmd-392995:11 CBC W/Diff, Automated Comments: [facility] [address] [place], [place], [address] Absolute Lymph 1.34 {X10_3/ul} (Normal) Range: 0.83-4.51 [...] 4.2-5.4 WBC 5.4 K/mm3 (Normal) Range: 4.4-11.0 75-Uey-736754:11 Comprehensive Metabolic Profil Comments: Comments: [facility] [address] [place], [address] GAP 7 (Normal) Range: 5-15 CO2 28.0 mmol/L (Normal) Range: 21.0-32.0 CL 100 mmol/L (Normal) Range: 98-107 K 3.9 mmol/L (Normal) Range: 3.5-5.1 NA 135 mmol/L (Abnormal) Range: 136-145 T BILI 0.70 mg/dL (Normal) Range: 0.20-1.00 ALT 31 U/L (Normal) Range: 13-56 Comments: Please note revised ALT reference range /28/2018. ALK P 110 U/L (Normal) Range: 45-117 [...] A.D.A. criteria.Please note revised GLUCOSE reference range adgpbaifl09/02/2018. 74-Dte-279098:10 Urinalysis, Complete Comments: ORDERED UACDR.JACINDA ORDERED CMP AND CBCDComments: clean catchComments: clean catchHow was Urine Obtained? FRONT OFFICE MANAGER TO SPECIFYBrown Memorial Hospital [address] [place], [address] MUCUS, URINE RARE {/hpf} (Normal) [...] (Normal) CLARITY Cloudy (Normal) COLOR Yellow (Normal) 2-Qgl-171428:42 ,Serum,hCG Quali. Comments: Comments: use blood in [facility] [address] [place], [address] HCGSQUAL NEGATIVE {Negative} (Normal) Range: 0-9 Nonpreg HCG Qual triggr 2 m[iU]/mL (Normal) 9-Egf-174188:41 Basic Metabolic Profile (BMP) Comments: [facility] [address] [place], [address] GAP 10 (Normal) Range: 5-15 [...] A.D.A. criteria.Please note revised GLUCOSE reference range ckubbrdda97/02/2018. 0-Rlv-234917:41 CBC-Complete Blood Cnt No Diff Comments: [facility] [address] [place], [place], [address] MPV 9.6 fL (Normal) Range: 6.2-12.0 PLT [...] 4.2-5.4 WBC 8.7 K/mm3 (Normal) Range: 4.4-11.0 3-Trh-187143:41 Prothrombin Time w/INR Comments: [facility] [address] [place], [place], [address] INR 1.0 (Normal) PROTIME 12.9 s (Normal) Range: 11.7-14.9 03-Nov-20179:00 Culture, Urine Comments: [facility] [address] [place], [place], [address] CUUR See Note (Normal) Comments: Urine CultureORGANISM [...] &lt ;=20 S(NF) indicates non-formulary drug at [facility]. Approval by Infectious Disease Specialist required before non- formulary drugs may be ordered and/or dispensed. :27 AFP, Tumor Marker Comments: Is Patient ? NPatient's Weight (LBS.): 124Number of Fetuses: 0[facility] (refer to report for specific site)refer to report for address and phone number AFP TUMOR 2253 6.8 ng/mL (Normal) Range: 0.0-8.3 Comments: [employer] ECLIA methodologyPerformed at: [facility] [address] [id number] Director: Omar Hood PhD, Phone: [phone] :[phone] CBC W/Diff, Automated Comments: [facility] [address] [place], [place], [address] Absolute Lymph 1.47 {X10_3/ul} (Normal) Range: 0.83-4.51 [...] 4.2-5.4 WBC 6.0 K/mm3 (Normal) Range: 4.4-11.0 87-Qsr-70670:27 Comprehensive Metabolic Profil Comments: [facility] [address] [place], [place], [address] GAP 9 (Normal) Range: 5-15 CO2 28.0 [...] Range: 70-110 :27 Microalb:Creat Ratio,Random UR Comments: [facility] [address] [place], [place], [address] MALB:CREAT 17.4 {mg/g_CRE} (Normal) MICROALBUMIN,UR 37.5 mg/L (Normal) UR CREAT 215.00 mg/dL (Normal) :40 CBC W/Diff, Automated Comments: [facility] [address] [place], [place], [address] Absolute Lymph 1.60 {X10_3/ul} (Normal) Range: 0.83-4.51 [...] 4.2-5.4 WBC 10.9 K/mm3 (Normal) Range: 4.4-11.0 57-Mkf-37762:39 Comprehensive Metabolic Profil Comments: Order Date: 12/06/16Order Info: 0786-1 - *CMP Complete Metabolic PanelWKettering Health Hamilton [address]xprkfdns1451 [place], [place], [address] GAP 10 (Normal) Range: 5-15 CO2 27.0 [...] per A.D.A. criteria. :15 Culture, Urine Comments: [facility] [address] [place], [place], [address] CUUR See Note (Normal) Comments: Urine CultureORGANISM [...] $ <=20 S(NF) indicates non-formulary drug at [facility]. Approval by Infectious Disease Specialist required before non-formulary drugs may be ordered and/or dispensed. :35 HgA1C , Office (38227) HgA1C , Office 6.5 % (Normal) Range: 4.6 - 7.1 :07 AFP, Tumor Marker Comments: Is Patient ? [facility] (refer to report for specific site)refer to report for address and phone number AFP TUMOR 2253 8.5 ng/mL (Abnormal) Range: 0.0-8.3 Comments: [employer] ECLIA methodologyPerformed at: [facility] [address] [id number] Director: Omar Hood PhD, Phone: [phone] :[phone] CBC W/Diff, Automated Comments: [facility] [address] [facility] [place], [address] Absolute Lymph 1.17 {X10_3/ul} (Normal) Range: 0.83-4.51 [...] Range: 4.4-11.0 31-May-20179:07 Comprehensive Metabolic Profil Comments: [facility] [address] [place], [address] GAP 9 (Normal) Range: 5-15 CO2 28.0 [...] the [place] Food and Drug Administration.Performed at: [place] [id number] [place] [id number] Director: Zia Jarvis MD, Phone: [phone] INS RES/DIAB RK . (Normal) LDL SIZE [...] . (Normal) 31-May-20179:07 Vitamin D,25 Hydroxy Comments: [facility] [address] [place], [place], [address] Vitamin D 25-OH 61.8 ng/mL (Normal) Comments: Vitamin D 25(OH) Status Range Deficiency <20 ng/mL (50nmol/L) Insuffciency 20 - 30 ng/mL (50 - 75 nmol/L) Sufficiency 30 - 100 ng/mL (75 - 250 nmol/L) Toxicity >100 ng/mL (>250 nmol/L) :48 Liver Profile Comments: [facility] [address] [place], [address] D BILI 0.14 mg/dL (Normal) Range: 0.00-0.30 T BILI 0.50 mg/dL (Normal) Range: 0.20-1.00 ALT 57 U/L (Normal) Range: 12-78 ALK P 94 U/L (Normal) Range: 45-117 AST 40 U/L (Abnormal) Range: 15-37 GLOB 2.8 g/dL (Normal) Range: 2.3-3.5 ALB 3.9 g/dL (Normal) Range: 3.4-5.0 T PROT 6.7 g/dL (Normal) Range: 6.4-8.2 :45 Potassium Comments: [facility] [address] [place], [address] K 4.3 mmol/L (Normal) Range: 3.5-5.1 :35 CBC W/Diff, Automated Comments: [facility] [address] [place], [place], [address] Absolute Lymph 1.24 {X10_3/ul} (Normal) Range: 0.83-4.51 [...] 4.2-5.4 WBC 3.6 K/mm3 (Abnormal) Range: 4.4-11.0 79-Cxy-43830:35 Comprehensive Metabolic Profil Comments: [facility] [address] [place], [address] GAP 10 (Normal) Range: 5-15 CO2 31.0 [...] ASPIRATION (SLIDES ONLY) See Note (Normal) Comments: [facility] [address] [place], [address] 0 Comments: Patient: IFEOMA ASHRAF : 1965 (52/F) Acct Num: [id number] Phys: Janelle KING,Alejandro Unit Num: [id number] Loc: LABSPEC Specimen: [id number] Received: 03/18/17 - 1126 Spec Ty pe: ASPIRATION TISSUES TISSUES: COMMENT Correlation with clinical, radiologic findings and appropriate follow up are necessary. CYTOLOGY GROSS Received are ten smears labeled wi th the patient's name and designated per the requisition as left thyroid FNA. Submitted for staining. / 03/18/17 TC:5 CPT: 94785 CYTOLOGY STUDY Slides are reviewed. The specimen [...] <signature on file> 01-Mar-20179:30 HEPATITIS C ANTIBODY (55252) Comments: PATIENT NOT FASTINGPERFORMED BY: [facility]6370 [facility] [id number] Hep C Virus Ab <0.1 {s/co_ratio} (Normal) Range: 0.0-0.9 Comments: Negative: < 0.8 Indeterminate: 0.8 - 0.9 Positive: > 0.9 . The CDC recommends that a positive HCV antibody result be followed up with a HCV Nucleic Acid Amplification test (878032). :30 Potassium Serum (91977) Comments: PATIENT NOT FASTINGPERFORMED BY: [facility]6370 [facility] [id number] Potassium, Serum 4.8 mmol/L (Normal) Range: 3.5-5.2 :29 HgA1C , Office (96902) HgA1C , Office 7.9 % (Abnormal) Range: 4.6 - 7.1 :53 CBC W/Diff, Automated Comments: [facility] [address] [place], [place], [address] Absolute Lymph 1.57 {X10_3/ul} (Normal) Range: 0.83-4.51 [...] 4.2-5.4 WBC 4.8 K/mm3 (Normal) Range: 4.4-11.0 52-Nth-08732:53 Comprehensive Metabolic Profil Comments: [facility] [address] [place], [address] GAP 11 (Normal) Range: 5-15 CO2 32.0 [...] per A.D.A. criteria. :53 Lipid Profile Comments: [facility] [address] [place], [address] VLDL 37 mg/dL (Normal) Range: 5-40 [...] High Risk :53 Microalb:Creat Ratio,Random UR Comments: [facility] [address] [place], [address] MALB:CREAT 19.7 {mg/g_CRE} (Normal) MICROALBUMIN,UR 27.8 mg/L (Normal) UR CREAT 141.00 mg/dL (Normal) :53 Thyroid Stim Hormone (TSH) Comments: [facility] [address] [place], [address] TSH 2.39 {uIU/mL} (Normal) Range: 0.358-3.74 :53 Vitamin D,25 Hydroxy Comments: [facility] [address] [place], [address] Vitamin D 25-OH 79.9 ng/mL (Normal) Comments: Vitamin D 25(OH) Status Range Deficiency <20 ng/mL (50nmol/L) Insuffciency 20 - 30 ng/mL (50 - 75 nmol/L) Sufficiency 30 - 100 ng/mL (75 - 250 nmol/L) Toxicity >100 ng/mL (>250 nmol/L) 41-Kpc-081392:08 CBC W/Diff, Automated Comments: [facility] [address] [place], [place], [address] Absolute Lymph 2.04 {X10_3/ul} (Normal) Range: 0.83-4.51 [...] 4.2-5.4 WBC 9.0 K/mm3 (Normal) Range: 4.4-11.0 55-Qls-107858:08 Comprehensive Metabolic Profil Comments: [facility] [address] [place], [place], [address] GAP 9 (Normal) Range: 5-15 CO2 27.0 [...] 126 mg/dLsuggests DIABETES MELLITUS per A.D.A. criteria. 89-Wui-981084:00 Culture, Urine Comments: [facility] [address] [place], [address] CUUR See Note (Normal) Comments: Urine CultureORGANISM 1: Mixed Gram Positive OrganismsColony Count >100,000MIX CULTURE Mixed contaminants. Submit a new specimen if indicated. 9-Rze-995386:25 CBC W/Diff, Auto - EPLAB Comments: At [facility] Medical Oncologypatients receive CBC w/auto Differential ONLY. Physicianwill place an order for a manual differential or Pathologistreview at his discretion. [facility]. [address] [place] [address] [place] [address] REAL ESTATE APPRAISER SUPERVISOR: MATEO CASTANEDA DO PH:[phone] Memorial Hospital [address]zrmruy[address] [place], [address] Absolute Lymph 1.42 {X10_3/uL} (Normal) Range: [...] 4.2-5.4 WBC 6.3 K/mm3 (Normal) Range: 4.4-11.0 3-Hhm-849410:25 Comprehensive Metabolic Profil Comments: Order Date: 06/07/16Order Date: 06/07/16Serial Specimen #1, #2 or #3? 1[facility] [address] [place], [address] GAP 11 (Normal) Range: 5-15 CO2 [...] 200 mg/dLsuggests DIABETES MELLITUS per A.D.A. criteria. 6-Wvu-668602:25 LDH 208 U/L (Normal) Comments: Order Date: 06/07/16Order Date: 16Serial Specimen #1, #2 or #3? [address] [place] [address] [address] [facility] [place], [place], [address] Range: 84-246 6-Cvw-176487:25 Uric Acid Comments: Order Date: 06/07/16Order Date: 16Serial Specimen #1, #2 or #3? [address] [place] [address] [address] [place], [place], [address] URIC 3.8 mg/dL (Normal) Range: 2.6-6.0 Comments: The drugs N-Acetylcysteine and Metamizole may falsely deressthis assay. :10 HgA1C , Office (23280) HgA1C , Office 8.0 % (Abnormal) Range: 4.6 - 7.1 :10 Blood Glucose , Office (84014) Blood Glucose , Office 223 (Normal) :24 AFP, Tumor Marker Comments: Is Patient ? N[facility] (refer to report for specific site)refer to report for address and phone number AFP TUMOR 2253 8.5 ng/mL (Abnormal) Range: 0.0-8.3 Comments: [employer] ECLIA methodologyPerformed at: [facility] [address] [id number] Director: Omar Hood PhD, Phone: [phone] :24 CBC W/Diff, Automated Comments: [facility] [address] [place], [place], [address] Absolute Lymph 1.35 {X10_3/ul} (Normal) Range: 0.83-4.51 [...] Range: 4.4-11.0 :24 Comprehensive Metabolic Profil Comments: [facility] [address] [place], [place], [address] GAP 9 (Normal) Range: 5-15 CO2 27.0 [...] 126 mg/dLsuggests DIABETES MELLITUS per A.D.A. criteria. 97-Tgu-40082:24 NMR Lipoprofile Comments: [facility] (refer to report for specific site)refer [...] the [place] Food and Drug Administration.Performed at: [address] [id number] Director: Zia Jarvis MD, Phone: [phone] INS RES/DIAB RK . (Normal) LDL SIZE [...] mg/dL (Normal) Range: 100-199 LIPIDS . (Normal) 62-Rqq-108050:53 CBC W/Diff, Automated Comments: [facility] [address] [place], [place], [address] Absolute Lymph 1.41 {X10_3/ul} (Normal) Range: 0.83-4.51 [...] 4.2-5.4 WBC 12.2 K/mm3 (Abnormal) Range: 4.4-11.0 64-Rtl-504109:53 Comprehensive Metabolic Profil Comments: [facility] [address] [place], [place], [address] GAP 13 (Normal) Range: 5-15 CO2 24.0 [...] A.D.A. criteria. :42 CBC W/Diff, Automated Comments: [facility] [address] [place], [place], [address] Absolute Lymph 1.92 {X10_3/ul} (Normal) Range: 0.83-4.51 [...] Range: 4.4-11.0 :42 Comprehensive Metabolic Profil Comments: [facility] [address] [place], [place], [address] GAP 11 (Normal) Range: 5-15 CO2 25.0 [...] :55 Magnesium Comments: Order Date: 06/07/16Order Date: 06/07/16[facility] [address] [place], [place], [address] MG 2.0 mg/dL (Normal) Range: 1.8-2.4 :57 CBC W/Diff, Auto - EPLAB Comments: At [facility] Outpatient [facility] Medical Oncologypatients receive CBC w/auto Differential ONLY. Physicianwill place an order for a manual differential or Pathologistreview at his discretion. [facility] OUT[facility]IENT [facility]. [address] [place] [address] REAL ESTATE APPRAISER SUPERVISOR: MATEO CASTANEDA DO PH:[phone] Memorial Hospital [address]fxnpzrxa[address] [place], [place], [address] Absolute Lymph 1.38 {X10_3/uL} (Normal) Range: 0.83-4.51 [...] Profil Comments: Order Date: 06/07/16OV Order #: [id number] Specimen #1, #2 or #3? 1 [id number] [address]tsonoyvjn[address] [place], [place], [address] GAP 13 (Normal) Range: 5-15 CO2 24.0 [...] (Normal) Comments: Order Date: 06/07/16 Order #: [id number] Specimen #1, #2 or #3? [address] [place] [address] [place], [address] Range: 84-246 :56 Magnesium Comments: Order Date: 06/07/16OV Order #: [id number] Specimen #1, #2 or #3? [id number] [place] [address] [place], [address] MG 1.5 mg/dL (Abnormal) Range: 1.8-2.4 :56 Uric Acid Comments: Order Date: 06/07/16OV Order #: [id number] Specimen #1, #2 or #3? [address] [place] [id number] [place], [place], [id number] URIC 4.8 mg/dL (Normal) Range: 2.6-6.0 Comments: The drugs N-Acetylcysteine and Metamizole may falsely deressthis assay. :30 Liver Profile Comments: [facility] [id number] [place], [address] D BILI 0.13 mg/dL (Normal) [...] WBC Comments: PATIENT NOT FASTINGPERFORMED BY: [facility] [id number] [facility] [id number] Information: NURSE DRAW (52518) Immature Grans (Abs) 0.0 {x10E3/uL} (Normal) Range: [...] COMPREHENSIVE Comments: PATIENT NOT FASTINGPERFORMED BY: [facility] [id number] [facility] [id number] ([id number]) ALT (SGPT) 41 [iU]/L (Abnormal) Range: 0-32 [...] (Abnormal) Range: 65-99 :09 HgA1C , Office (06119) HgA1C , Office 7.0 % (Normal) Range: 4.6 - 7.1 :14 AFP, Tumor Marker Comments: Is [facility] ? [facility] (refer to report for specific site)refer to report for address and phone number AFP TUMOR 2253 7.7 ng/mL (Normal) Range: 0.0-8.3 Comments: [employer] ECLIA methodologyPerformed at: [place] - [facility] [address] [id number] Director: Omar Hood PhD, Phone: [phone] :[phone] CBC W/Diff, Automated Comments: [facility] [address] [place] [address], [address] ; will review on 05/17 Absolute [...] Range: 4.4-11.0 :14 Comprehensive Metabolic Profil Comments: [facility] [address] [place], [address] GAP 7 (Normal) Range: 5-15 CO2 28.0 [...] per A.D.A. criteria. :14 Lipid Profile Comments: [facility] D[address]jkfflnt[address] [place], [phone] VLDL 36 mg/dL (Normal) Range: 5-40 LDL [...] High Risk :14 Microalb:Creat Ratio,Random UR Comments: [facility] [address] [place], [id number] ; will review on 05/17 MALB:CREAT 14.6 {mg/g_CRE} (Normal) MICROALBUMIN,UR 23.4 mg/L (Normal) UR CREAT 160.00 mg/dL (Normal) :14 Thyroid Stim Hormone (TSH) Comments: [facility] [address] [place], [address] TSH 1.89 {uIU/mL} (Normal) Range: 0.358-3.74 :14 Vitamin D,25 Hydroxy Comments: [facility] Izscxlcywc[address] [place], [phone] ; will review on 05/17 Vitamin D 25-OH 53.2 ng/mL (Normal) Comments: Vitamin D 25(OH) Status Range Deficiency <20 ng/mL (50nmol/L) Insuffciency 20 - 30 ng/mL (50 - 75 nmol/L) Sufficiency 30 - 100 ng/mL (75 - 250 nmol/L) Toxicity >100 ng/mL (>250 nmol/L) :23 CBC W/Diff, Automated Comments: [facility] [address]wcvs[address] [place], [place], [address] Absolute Lymph 1.65 {X10_3/ul} (Normal) Range: 0.83-4.51 [...] Range: 4.4-11.0 :23 Comprehensive Metabolic Profil Comments: [facility] [address]qqsu[address] [place], [place], [phone] GAP 9 (Normal) Range: 5-15 CO2 30.0 [...] 126 mg/dLsuggests DIABETES MELLITUS per A.D.A. criteria. 89-Lah-406941:07 HgA1C , Office (94418) HgA1C , Office 8.5 % (Abnormal) Range: 4.6 - 7.1 :15 CBC W/Diff, Automated Comments: [facility] [address]iont[address] [place], [place], [address] Absolute Lymph 1.76 {X10_3/ul} (Normal) Range: 0.83-4.51 [...] 4.2-5.4 WBC 6.7 K/mm3 (Normal) Range: 4.4-11.0 15-Jfo-84435:15 Comprehensive Metabolic Profil Comments: [facility] Gbdduwkavx13[address] [place], [place], [address] GAP 13 (Normal) Range: 5-15 CO2 23.0 [...] per A.D.A. criteria. :15 Lipid Profile Comments: [facility] Xiuxnjpmhw3505 [facility] [place], [address] VLDL 45 mg/dL (Abnormal) Range: [...] High Risk :15 Vitamin D,25 Hydroxy Comments: [facility] Qzhpfbmczm2441 [facility] [address] [place], [place], [id number] Vitamin D 25-OH 28.8 ng/mL (Normal) Comments: Vitamin D 25(OH) Status Range Deficiency <20 ng/mL (50nmol/L) Insuffciency 20 - 30 ng/mL (50 - 75 nmol/L) Sufficiency 30 - 100 ng/mL (75 - 250 nmol/L) Toxicity >100 ng/mL (>250 nmol/L); ADDENDA: non-emergent till apt :35 CBC W/Diff, Automated Comments: [facility] [address] [place], [place], [address] Absolute Lymph 1.26 {X10_3/ul} (Normal) Range: 0.83-4.51 [...] Range: 4.4-11.0 :35 Comprehensive Metabolic Profil Comments: [facility] [address] [place], [place], [phone] GAP 14 (Normal) Range: 5-15 CO2 26.0 [...] 200 mg/dLsuggests DIABETES MELLITUS per A.D.A. criteria. 36-Omy-54445:0 ASPIRATION (SLIDES ONLY) See Note (Normal) Comments: [facility] [address]bfq[address] [place], [place], [phone] 0 Comments: Patient: IFEOMA ASHRAF : 1965 (50/F) Acct Num: [id number] Phys: Alejandro Luis MD Unit Num: [id number] Loc: [facility] Specimen: [id number] Received: 01/06/16 - 1129 Spec Ty pe: ASPIRATION TISSUES TISSUES: COMMENT Correlation with clinical, radiologic findings and appropriate follow up are necessary. CYTOLOGY GROSS Received are 10 smears labeled wit h the patient's name and designated per the requisition as fine needle aspiration left thyroid. Submitted for staining. 01/06/16 TC:5 CPT:04602 CYTOLOGY STUDY Slides are reviewed. The spe [...] Signed Toni Yepez 01/07/16 <signature on file> 1-Wsj-472726:29 CBC W/Diff, Auto - EPLAB Comments: At [facility] Medical Oncologypatients receive CBC w/auto Differential ONLY. Physicianwill place an order for a manual differential or Pathologistreview at his discretion. [facility] OUTPATIENT [facility]. [address] [address] REAL ESTATE APPRAISER SUPERVISOR: MATEO CASTANEDA DO PH:[phone] Memorial Hospital [address]eyuuz[address] [place], [address] Absolute Lymph 1.49 {X10_3/uL} (Normal) Range: 0.83-4.51 [...] 4.2-5.4 WBC 4.6 K/mm3 (Normal) Range: 4.4-11.0 3-Xgk-330924:28 Comprehensive Metabolic Profil Comments: Serial Specimen #1, #2 or #3? 1[facility] [address] [place], [place], [address] GAP 8 (Normal) Range: 5-15 CO2 26.0 [...] 126 mg/dLsuggests DIABETES MELLITUS per A.D.A. criteria. 6-Rfv-314771:28 LDH 213 U/L (Normal) Comments: Serial Specimen #1, #2 or #3? 1[facility] F[address]ovxx[address] [place], [address] Range: 84-246 7-Qka-315211:28 Magnesium Comments: Serial Specimen #1, #2 or #3? 1[facility] F[address]uqzqown[address] [place], [address] MG 1.6 mg/dL (Abnormal) Range: 1.8-2.4 :28 Uric Acid Comments: Serial Specimen #1, #2 or #3? 1[facility] Zixtfznedf[address] [place], [address] URIC 4.8 mg/dL (Normal) Range: 2.6-6.0 26-Nov-20159:36 Miscellaneous Lab Procedure Comments: Comments: [id number] URINE TOX,RUN LOWEST TESTTest(s) Ordered: [id number] URINE TOX,RUN LOWEST TESTBrown Memorial Hospital [address]upqey[address] [place], [place], [address] [facility] Comments: [id number] 6+OXYCODONE-BUND (ng/mL)DRUG RESULT SCREEN CUTOFF____ Amphetamines,Urine Negat LAB (Normal) scott ng/mL 1000Amphetamine test includes Amphetamine and Methamphetamine.Barbiturates Negative ng/mL 200Benzodiazepines Negative ng/mL 200Cannabinoid TEST Negative ng/mL 20Cocaine (Metab) Negative ng/mL 300Opiates Positive ng/mL 300 Opiates test includes Codeine, Morphine, Hydromorphone, [place] codone.Please Note:Confirmation performed by Mass SpectrometryCodeine NegativeMorphine NegativeHydromorphone NegativeHydrocodone Positive Hydrocodone Confirm 1950 ng/mL 300Oxycodone/Oxymorphone,Urine Negative ng/mL 300 Test includes Oxydodone and Oxymorphone. TESTI NG PERFORMED AT [facility]. ORIGINAL REPORT ON FILE IN LAB CONTAINS ADDITIONAL TEST SITE INFORMATION. :36 Urine Drug Screen (VISTA) Comments: Comments: [id number] URINE TOX,RUN LOWEST TESTList of Drugs Taken or Suspected? UNKNOWNBrown [facility] [address]esqry[address] [place] [address], [phone] ; ordered by Basali THC NEGATIVE (Normal) [...] TESTING MUST BE ORDERED SEPARATELY. USE TESTMNEMONIC: [facility] 21-Bry-763915:20 HgA1C , Office (05245) HgA1C , Office 7.3 % (Abnormal) Range: 4.6 - 7.1 :13 AFP, Tumor Marker Comments: Is [facility] ? [facility] ([facility]er to report for specific site)refer to report for address and phone number AFP TUMOR 2253 6.4 ng/mL (Normal) Range: 0.0-8.3 Comments: Khanh ECLIA methodologyPerformed at: [facility] - [facility] [address] [id number] Director: Omar Hood PhD, Phone: [phone] :[phone] CBC W/Diff, Automated Comments: [facility] [address]jwsbk[address] [place], [place], [phone] Absolute Lymph 1.59 {X10_3/ul} (Normal) Range: 0.83-4.51 [...] Range: 4.4-11.0 :13 Comprehensive Metabolic Profil Comments: [facility] [address] [place], [place], [address] GAP 10 (Normal) Range: 5-15 CO2 24.0 [...] per A.D.A. criteria. :13 Lipid Profile Comments: [facility] Erfdwbnkkp[address] [place], [place], [address] ; non-emergent and pt has a f/u [...] High Risk :13 Microalb:Creat Ratio,Random UR Comments: [facility] [address]wt[address], [address] MALB:CREAT 17.0 {mg/g_CRE} (Normal) MICROALBUMIN,UR 43.7 mg/L (Normal) UR CREAT 257.00 mg/dL (Normal) :13 Thyroid Stim Hormone (TSH) Comments: [facility] [address] [place], [address] TSH 1.82 {uIU/mL} (Normal) Range: 0.358-3.74 :13 Vitamin D,25 Hydroxy Comments: [facility] Maj[address]fysxw[address] [place], [phone] ; will review at 11/10 appt Vitamin D 25-OH 39.8 ng/mL (Normal) Comments: Vitamin D 25(OH) Status Range Deficiency <20 ng/mL (50nmol/L) Insuffciency 20 - 30 ng/mL (50 - 75 nmol/L) Sufficiency 30 - 100 ng/mL (75 - 250 nmol/L) Toxicity >100 ng/mL (>250 nmol/L) :40 CBC W/Diff, Automated Comments: [facility] [address] [place], [address] Absolute Lymph 1.47 {X10_3/ul} (Normal) Range: [...] 4.2-5.4 WBC 4.7 K/mm3 (Normal) Range: 4.4-11.0 57-Yiv-09724:40 Comprehensive Metabolic Profil Comments: [facility] [address] [place], [place], [address] GAP 13 (Normal) Range: 5-15 CO2 24.0 [...] per A.D.A. criteria. :49 HgA1C , Office (00886) HgA1C , Office 7.8 % (Abnormal) Range: 4.6 - 7.1 :09 CBC W/Diff, Automated Comments: [facility] Imcl[address]jf[address] [place], [address] Absolute Lymph 1.07 {X10_3/ul} (Normal) Range: 0.83-4.51 [...] 4.2-5.4 WBC 5.3 K/mm3 (Normal) Range: 4.4-11.0 68-Dlo-170056:09 Comprehensive Metabolic Profil Comments: [facility] [address] [place], [place], [address] GAP 7 (Normal) Range: 5-15 CO2 28.0 [...] 200 mg/dLsuggests DIABETES MELLITUS per A.D.A. criteria. 2-Qsr-349874:42 CBC W/Diff, Automated Comments: At [facility] Outpatient [facility] Medical Oncologypatients receive CBC w/auto Differential ONLY. Physicianwill place an order for a manual differential or Pathologistreview at his discretion. [facility]. [address] [address] REAL ESTATE APPRAISER SUPERVISOR: MATEO CASTANEDA DO PH:[phone] performed at:[facility] [address] [place], [place] [address] Absolute Lymph 1.60 {X10_3/ul} (Normal) Range: 0.83-4.51 [...] 4.2-5.4 WBC 7.0 K/mm3 (Normal) Range: 4.4-11.0 6-Gfu-144933:42 Comprehensive Metabolic Profil Comments: Serial Specimen #1, #2 or #3? 1Test performed at:[facility] Nmrhtitmvy[address] [place], [place] [address] GAP 9 (Normal) Range: 5-15 CO2 25.0 [...] Comments: Please note revised CREATININE reference range quxonyjuz71/22/2015. BUN 20 mg/dL (Abnormal) Range: 7-18 GLU 118 mg/dL (Abnormal) Range: 70-110 Comments: Fasting Glucose result from 110 to <126 mg/dLsuggests IMPAIRED HOMEOSTASIS per A.D.A. criteria. 3-Wdm-784994:42 LDH 133 U/L (Normal) Comments: Serial Specimen #1, #2 or #3? 1Test performed at:[facility] Mkhgkftedy[address] [place] [address] Range: 84-246 3-Mwj-459689:42 Uric Acid Comments: Serial Specimen #1, #2 or #3? 1Test performed at:[facility] F[address]fmafmxn3[address] [place] [address] URIC 4.6 mg/dL (Normal) Range: 2.6-6.0 :02 CBC W/Diff, Automated Comments: Test performed at:[facility] [address]jmtd[address] [place] [address] ; handled by vicki Absolute Lymph 1.23 [...] 4.2-5.4 WBC 4.1 K/mm3 (Abnormal) Range: 4.4-11.0 2-Hwd-181276:02 Comprehensive Metabolic Profil Comments: Test performed at:[facility] [address] [place], [place] [address] GAP 12 (Normal) Range: 5-15 CO2 23.0 [...] 200 mg/dLsuggests DIABETES MELLITUS per A.D.A. criteria. 15-Tgv-239496:49 VITAMIN B-12 (CYANOCOBALAMIN) Comments: PATIENT NOT FASTINGPERFORMED BY: [facility]CoSaint [facility] University HospitalEqilma6038 [facility] [id number] (49353) Vitamin B12 464 pg/mL (Normal) Range: 211-946 :49 Vitamin D Hydroxy (57906) Comments: PATIENT NOT FASTINGPERFORMED BY: [facility]6370 [facility] [id number] Vitamin D, 25-Hydroxy 11.5 ng/mL (Abnormal) Range: 30.0-100.0 Comments: Vitamin D deficiency has been defined by the [place] of[facility]cine and an Endocrine Society practice guideline as alevel of serum 25-OH vitamin D less than 20 ng/mL (1,2).The Endocrine Society went on to further define vitamin Dinsufficiency as a level between 21 and 29 ng/mL (2).1. IOM ([place] of Medicine). 2010. Dietary reference intakes for calcium and D. [place]: The National AcademBitspark Press.2. Sami MF, Sophie MOORE, Xiomara LARES, et al. Evaluation, treatment, and prevention of vitamin D deficiency: an Endocrine Society clinical practice guideline. JCEM. 2010; 96(7):1911-30. :49 CBC W/AUTO DIFF WBC Comments: PATIENT NOT FASTINGPERFORMED BY: [facility]6370 [facility] [id number] Information: [id number] (22644) Immature Grans (Abs) 0.0 {x10E3/uL} (Normal) Range: [...] 3.77-5.28 WBC 6.1 {x10E3/uL} (Normal) Range: 3.4-10.8 03-Rmn-055017:28 URINE GENESIS CULTURE-NITA COL Comments: PATIENT NOT FASTINGPERFORMED BY: [facility] Nkbdyk6113 [facility] [id number] Information: SRC:[facility] [id number] COUNT (61075) Antimicrobial MIHEAD (Normal) Comments: S = Susceptible; [...] Imipenem Meropenem Urine Final report (Abnormal) Culture,Comprehensive 53-Iqh-520930:24 Urinalysis, Office (62504) UA - LEUKOCYTE ESTERASE Trace (Normal) UA - NITRITE Negative (Normal) URINE UROBILINGN NITA TIMED Normal mg/dL (Normal) UA - PROTEIN 30 mg/dL (Normal) UA - PH 6 (Abnormal) UA - BLOOD Negative (Normal) UA - SPECIFIC GRAVITY 1.030 (Abnormal) UA - KETONES Moderate mg/dL (Normal) UA - BILIRUBIN Small (Normal) UA - GLUCOSE Negative (Normal) 01-Apr-20157:54 Bedside Glucose Comments: Test performed at:[facility] Ufujikanno8619 [facility] [place] [address] BEDSIDE GLU 129 mg/dL (Abnormal) Range: 70-110 Comments: MANAGEMENT OF PATIENT CARE PER NURSING PROTOCOL 31-Mar-20159:47 Urinalysis, Office (38448) UA - LEUKOCYTE ESTERASE Trace (Normal) UA - NITRITE Negative (Normal) URINE UROBILINGN NITA TIMED 2 mg/dL (Normal) UA - PROTEIN 300 mg/dL (Normal) UA - PH 6.0 (Normal) UA - BLOOD Hemolyzed Large (Normal) UA - SPECIFIC GRAVITY 1.030 (Abnormal) UA - KETONES 15 mg/dL (Abnormal) UA - BILIRUBIN Moderate (Normal) UA - GLUCOSE Negative (Normal) 31-Itb-617241:57 Basic Metabolic Profile (BMP) Comments: Test performed at:[facility] [address] [place], [place] [address] GAP 11 (Normal) Range: 5-15 CO2 27.0 [...] 126 mg/dLsuggests DIABETES MELLITUS per A.D.A. criteria. 29-Lfp-689363:57 Digoxin Level Comments: Test performed at:[facility] Ajcvsaokis2003 [place] [address] DIG 1.17 ng/mL (Normal) Range: 0.80-2.00 40-Cwt-961297:57 Hemoglobin A1c Comments: Test performed at:[facility] [address] [place] [address] HGB A1C 7.0 % (Abnormal) Range: 4.2-6.3 59-Vux-325217:57 Thyroid Stim Hormone (TSH) Comments: Test performed at:[facility] Miypptrcnl[address] [place] [address] TSH 0.89 {uIU/mL} (Normal) Range: 0.358-3.74 2-Pqk-469141:17 Urine Culture,Comprehensive Comments: PATIENT NOT FASTINGPERFORMED BY: [facility]CoSaint [facility] HospitalFfevkp3944 [facility] [id number] Information: SRC:[facility] [id number] Result 1 BETAGB (Abnormal) Comments: Beta hemolytic [...] 02/28/15How was Urine Obtained? CLEAN CATCHTest performed at:[facility] Pjtqjsewaw7840 [place] [address] AMORPHOUS 1+ URATE (Normal) MUCUS, [...] :55 CBC W/Diff, Automated Comments: Test performed at:[facility] [address]ii[address] [place] [address] Absolute Lymph 1.29 {X10_3/ul} (Normal) Range: [...] :55 Comprehensive Metabolic Profil Comments: Test performed at:[facility] [address]prqn[address] [place], [place] [address] GAP 10 (Normal) Range: 5-15 CO2 26.0 [...] A.D.A. criteria. :55 Lipase Comments: Test performed at:[facility] [address]beuvkms[address] [place] [address] LIPASE 142 U/L (Normal) Range: 70-290 6-Tkz-807559:40 HgA1C , Office (94474) HgA1C , Office 7.4 % (Abnormal) Range: 4.6 - 7.1 :03 CBC W/Diff, Automated Comments: Test performed at:[facility] R[address]jpahgvgs9[address] [place] [address] Absolute Lymph 1.31 {X10_3/ul} (Normal) Range: 0.83-4.51 [...] :03 Comprehensive Metabolic Profil Comments: Test performed at:[facility] Dahpnxdizx7351 [facility]. [place], [place] [address] GAP 11 (Normal) Range: 5-15 CO2 26.0 [...] 126 mg/dLsuggests DIABETES MELLITUS per A.D.A. criteria. 12-Bkx-289523:00 Culture, Urine Comments: Test performed at:[facility] Omxtkpdbyn9498 [facility] [place] [address] CUUR See Note (Normal) Comments: Urine CultureORGANISM 1: Streptococcus agalactiae (B)[place] Count 1000-10,000 Streptococcus agalactiae (B): REACTION Ampicillin $ <=0.25 S Benzylpenicillin NF <=0.06 S Ceftriaxone (other dx) $ <=0.12 S Inducable Clindamycin Resistan - Linezolid $$$$ <=2 S Vancomycin $ 0.5 S(NF) indicates non-formulary drug at [facility]. Approval by Infectious Disease Specialist required before non-formulary drugs may be ordered and/or dispensed. * CLSI guidelines does not recommend testing of cephalosporins. This interpretation is deduced from Beta-lactam/penicillin results.; ADDENDA: handled by edvin :32 CBC W/Diff, Auto - EPLAB Only Comments: At [facility] Outpatient [facility], [facility] patientsreceive CBC w/auto Differential ONLY. Physician will placean order for a manual differential or Pathologist review athis discretion. [facility]. [address] [place] [address] REAL ESTATE APPRAISER SUPERVISOR: MATEO CASTANEDA DO PH:[phone] performed at:[facility] [address]zljvfwil9[address] [place], [place] [id number] ; [facility] Absolute Neut 2.7 {X10_3/uL} (Normal) Range: [...] Specimen #1, #2 or #3? 1Test performed at:[facility] [address]rhcevuh[address] [place], [place] [address] Range: 87-241 Comments: ADDENDA: elliott :34 TSH (48943) Comments: PATIENT WAS FASTINGPERFORMED BY: [facility] Sghpqt9617 [facility] [id number] TSH 1.240 {uIU/mL} (Normal) Range: 0.450-4.500 :34 LIPID PANEL (48130) Comments: PATIENT WAS FASTINGPERFORMED BY: [facility]6370 [facility] [id number] LDL/HDL Ratio 2.6 {ratio_units} (Normal) Range: 0.0-3.2 [...] CREATININE RATIO Comments: PATIENT WAS FASTINGPERFORMED BY: LabTelebit Xuyrni5986 [facility] [id number]; non- emergent till apt tomorrow (97187) AND (03753) Microalb/Creat Ratio 14.8 {mg/g_creat} (Normal) Range: 0.0-30.0 Microalbumin, Urine 44.5 ug/mL (Abnormal) Range: 0.0-17.0 Creatinine, Urine 301.0 mg/dL (Abnormal) Range: 15.0-278.0 :34 METABOLIC PANEL, Comments: PATIENT WAS FASTINGPERFORMED BY: [facility]CoGuadalupe County HospitalRiyood3210 [facility] [id number] Information: [id number] COMPREHENSIVE (95841) ALT (SGPT) 21 [iU]/L (Normal) Range: 0-32 [...] Glucose, Serum 161 mg/dL (Abnormal) Range: 65-99 2-Udw-435663:10 HgA1C , Office (55867) HgA1C , Office 7.2 % (Abnormal) Range: 4.6 - 7.1 :47 CBC W/Diff, Automated Comments: Test performed at:[facility] [address] [place], [place] [address] ; Handled by Vicki Absolute Lymph 1.43 [...] 4.2-5.4 WBC 5.4 K/mm3 (Normal) Range: 4.4-11.0 85-Noh-212608:47 Comprehensive Metabolic Profil Comments: Test performed at:[facility] Tqyiygrrgg[address] [place], [place] [address] GAP 6 (Normal) Range: 5-15 CO2 30.0 [...] Microscopic Examination Comments: PATIENT NOT FASTINGPERFORMED BY: iovationGuadalupe County HospitalSnzrcf5545 [facility] [id number] Bacteria Few (Normal) Mucus Threads Present (Normal) Epithelial Cells (non renal) 0-10 {/hpf} (Normal) Range: 0 - 10 RBC 0-2 {/hpf} (Normal) Range: 0 - 2 WBC >30 {/hpf} (Abnormal) Range: 0 - 5 :01 Urinalysis, Routine Comments: PATIENT NOT FASTINGPERFORMED BY: [facility] Yanjol6917 [facility] [id number] Microscopic Examination See below: (Normal) Comments: Microscopic was indicated and was performed. Nitrite, Urine Negative (Normal) Urobilinogen,Semi-Qn 0.2 mg/dL (Normal) Range: 0.0-1.9 Bilirubin Negative (Normal) Occult Blood Negative (Normal) Ketones Trace (Abnormal) Glucose Negative (Normal) Protein 1+ (Abnormal) WBC Esterase 3+ (Abnormal) Appearance Turbid (Abnormal) Urine-Color Yellow (Normal) pH 6.0 (Normal) Range: 5.0-7.5 Specific [place] 1.030 (Normal) Range: 1.005-1.030 81-Kqt-511720:18 CBCD ALC 1.30 {X10_3/ul} (Normal) Range: 0.83-4.51 [...] 4.2-5.4 WBC 4.5 K/mm3 (Normal) Range: 4.4-11.0 97-Gow-562105:18 CMP GAP 7 (Normal) Range: 5-15 CO2 [...] mg/dLsuggests DIABETES MELLITUS per A.D.A. criteria. :01 JHVLB-AZFCMTFRKJU-NZCVB (46351) Comments: PATIENT NOT FASTINGPERFORMED BY: [place] [id number] [facility] [id number] AFP, Serum, Tumor Marker 7.1 ng/mL (Normal) Range: 0.0-8.3 Comments: Khanh ECLIA methodology :01 PTT (Activated Partial Comments: PATIENT NOT FASTINGPERFORMED BY: [facility]6370 [facility] [id number] Thromboplastin Time) (82790) aPTT 25 {sec} (Normal) Range: 24-33 Comments: This test has not been validated for monitoring unfractionated heparintherapy. aPTT-based therapeutic ranges for unfractionated heparintherapy have not been established. For general guidelines onHeparin monitoring, refer to the [facility] Directory of Services. :01 PT (Prothrobim Time) (99854) Comments: PATIENT NOT FASTINGPERFORMED BY: [place] [id number] [facility] [id number] Prothrombin Time 10.4 {sec} (Normal) Range: 9.1-12.0 INR 1.0 (Normal) Range: 0.8-1.2 Comments: Reference interval is for non-anticoagulated patients. . Suggested INR therapeutic range for Vitamin K anta gonist therapy: Standard Dose (moderate intensity therapeutic range): 2.0 - 3.0 Higher intensity therapeutic range 2.5 - 3.5 :01 TSH (87298) Comments: PATIENT NOT FASTINGPERFORMED BY: LabCoSaint Peter's University HospitalXeloht7353 [facility] [id number] TSH 1.450 {uIU/mL} (Normal) Range: 0.450-4.500 :01 CBC W/AUTO DIFF WBC Comments: PATIENT NOT FASTINGPERFORMED BY: [facility]CoSaint [facility]'s University HospitalMbdnbt8179 [facility] [id number] Information: [id number] (18243) Immature Grans (Abs) 0.0 {x10E3/uL} (Normal) Range: [...] CREATININE RATIO Comments: PATIENT NOT FASTINGPERFORMED BY: RankingHeroSaint Peter's University HospitalBglssq6605 [facility] [id number] (70086) AND (34030) Microalb/Creat Ratio 26.4 {mg/g_creat} (Normal) Range: 0.0-30.0 Microalbumin, Urine 96.0 ug/mL (Abnormal) Range: 0.0-17.0 Creatinine, Urine 364.2 mg/dL (Abnormal) Range: 15.0-278.0 :01 METABOLIC PANEL, COMPREHENSIVE Comments: PATIENT NOT FASTINGPERFORMED BY: [facility] Qgpppi5050 [facility] [id number] (75761) ALT (SGPT) 19 [iU]/L (Normal) Range: 0-32 [...] mg/dL (Abnormal) Range: 65-99 :01 LIPID PANEL (85666) Comments: PATIENT NOT FASTINGPERFORMED BY: [facility]CoSaint [facility]'s University HospitalMtmngv7111 [facility] [id number] LDL/HDL Ratio 2.1 {ratio_units} (Normal) Range: 0.0-3.2 [...] (Normal) Range: 100-199 :19 HgA1C , Office (53985) HgA1C , Office 6.3 % (Normal) Range: 4.6 - 7.1 :11 LDH 205 U/L (Normal) Comments: Serial Specimen #1, #2 or #3? 1 Range: 87-241 46-Fna-049208:10 ECBCD ANC 3.4 {X10_3/uL} (Normal) Range: 2.0-7.7 [...] 4.2-5.4 WBC 5.3 K/mm3 (Normal) Range: 4.4-11.0 3-Jxn-383241:07 CBCD ALC 1.71 {X10_3/ul} (Normal) Range: 0.83-4.51 [...] 4.2-5.4 WBC 7.0 K/mm3 (Normal) Range: 4.4-11.0 0-Ium-319615:07 CMP GAP 7 (Normal) Range: 5-15 CO2 [...] Aerobic Comments: PATIENT NOT FASTINGPERFORMED BY: LabCoSaint Peter's University HospitalTonnft6271 [facility] [id number] Information: SRC:EMIL [id number] RIGHT EYE Culture (87698) Antimicrobial MIHEAD (Normal) Comments: S = Susceptible; [...] hours. Anaerobic Culture Final report (Normal) :57 [id number]-FHXUDXUCCSK-IVFOK (02111) Comments: PATIENT WAS FASTINGPERFORMED BY: [facility]St[facility] Hospital6370 [facility] [id number] AFP, Serum, Tumor Marker 9.2 ng/mL (Abnormal) Range: 0.0-8.3 Comments: Khanh ECLIA methodology :57 PTT (Activated Partial Comments: PATIENT WAS FASTINGPERFORMED BY: [facility]6370 [facility] [place] [id number] Thromboplastin Time) (19450) aPTT 26 {sec} (Normal) Range: 24-33 Comments: This test has not been validated for monitoring unfractionated heparintherapy. aPTT-based therapeutic ranges for unfractionated heparintherapy have not been established. For general guidelines onHeparin monitoring, refer to the [facility] Directory of Services. :57 PT (Prothrobim Time) (08286) Comments: PATIENT WAS FASTINGPERFORMED BY: RankingHeroSaint Peter's University HospitalYthzsb6501 [facility] [id number] Prothrombin Time 10.5 {sec} (Normal) Range: 9.1-12.0 INR 1.0 (Normal) Range: 0.8-1.2 Comments: Reference interval is for non-anticoagulated patients. . Suggested INR therapeutic range for Vitamin K anta gonist therapy: Standard Dose (moderate intensity therapeutic range): 2.0 - 3.0 Higher intensity therapeutic range 2.5 - 3.5 :57 TSH (64404) Comments: PATIENT WAS FASTINGPERFORMED BY: RankingHeroSaint Peter's University HospitalHqzund6659 [facility] [id number] TSH 3.200 {uIU/mL} (Normal) Range: 0.450-4.500 :57 CBC WITH MANUAL DIFF Comments: PATIENT WAS FASTINGPERFORMED BY: [facility]St[facility] Hospital6370 [facility] [id number] Information: [id number] (25923) Immature Grans (Abs) 0.0 {x10E3/uL} (Normal) Range: [...] COMPREHENSIVE Comments: PATIENT WAS FASTINGPERFORMED BY: LabCoSaint Peter's University HospitalKnkvqe3626 [facility] [id number] (91099) ALT (SGPT) 15 [iU]/L (Normal) Range: 0-32 [...] (Abnormal) Range: 65-99 :29 HgA1C , Office (53811) HgA1C , Office 5.4 % (Normal) Range: [...] CHOL 150 mg/dL (Normal) Comments: <200 mg/dL Suleujgyt931-967 mg/dL Borderline>240 mg/dL High Risk :50 HgA1C , Office (09692) HgA1C , Office 5.8 % (Normal) Range: [...] [facility]. Approximately 10% of breast cancers are not detected by mammography. Anormal mammogram should not delay biopsy of a clinically suspiciousabnormality. Signed:Mele Santiago [facility] 2012 at 9:19:01 AM [phone] Signed GP/GP If you are the referring physician and would like to consult with theradiologist who provided this interpretation, please conta ct GabrielePedicelli, M.D. at [phone]. If this radiologist is unavailable, youwill be directed to another radiologist to assist. If you are a patient with a question regarding this report, pleaseco ntactyour referring physician directly. Professional Interpretation Provided By: [employer], Phone , These documents contain legally protected [...] on 06/15/13920 Sign by: Prashant Delgadillo MD 99-Dvv-93042:27 THYROID Radiology Report See Note Comments: STUDY: [...] Delgadillo M.D.June 15, 2013 at 2:56:26 PM [phone] Signed GP/GP If you are the referring physician and would like to consult with theradiologist who provided this interpretation, please contact Sarmad Bonilla at [phone]. If this radiologist is unavailable, youwill be directed to another radiologist to assist. If you are a patient with a question regarding this report, pleasecontactyour referring physician directly. Profes sional Interpretation Provided By: [employer], Phone , These documents contain legally protected [...] 06/15/13 1733 Sign by: Prashant Delgadillo MD 2-Qoj-840303:18 URINE GENESIS CULTURE-NITA COL Comments: PATIENT NOT FASTINGPERFORMED BY: [facility] Weqvre6446 [facility] [id number] Information: SRC: [id number] COUNT (03569) Antimicrobial MIHEAD (Normal) Comments: S = Susceptible; [...] primarily for treating urinary tract infections. (CLSI, Y925-O59,2009) Urine Culture,Comprehensive Final report (Normal) 04-Jun-20138:48 Urinalysis, Office (19855) UA - LEUKOCYTE ESTERASE Large (Normal) UA - NITRITE Positive (Normal) URINE UROBILINGN NITA TIMED 2 mg/dL (Normal) UA - PROTEIN Negative mg/dL (Normal) UA - BLOOD Negative (Normal) UA - KETONES Moderate mg/dL (Normal) UA - BILIRUBIN Moderate (Normal) UA - GLUCOSE Small mg/dL (Normal) 98-Bhd-39026:06 MICROALBUMIN: CREATININE RATIO Comments: PATIENT WAS FASTINGPERFORMED BY: [employer] Uhnqpd4205 [facility] [id number] (33414) AND (97601) Microalb/Creat Ratio 27.4 {mg/g_creat} (Normal) Range: 0.0-30.0 Microalbumin, Urine 85.2 ug/mL (Abnormal) Range: 0.0-17.0 Creatinine, Urine 311.1 mg/dL (Abnormal) Range: 15.0-278.0 43-Kyg-24000:06 METABOLIC PANEL, Comments: PATIENT WAS FASTINGPERFORMED BY: [employer] Nyaunt5637 [facility] [id number] Information: ADD L83550 AND DRAW FEE 99 7515 COMPREHENSIVE (65981) ALT (SGPT) 29 [iU]/L (Normal) Range: 0-32 [...] Glucose, Serum 76 mg/dL (Normal) Range: 65-99 42-Apy-05037:06 TSH (28564) Comments: PATIENT WAS FASTINGPERFORMED BY: [place] 6557070 [facility] [id number] TSH 3.040 {uIU/mL} (Normal) Range: 0.450-4.500 :06 LIPID PANEL (67921) Comments: PATIENT WAS FASTINGPERFORMED BY: [address] [id number] LDL/HDL Ratio 2.4 {ratio_units} (Normal) Range: 0.0-3.2 HDL Cholesterol 55 mg/dL (Normal) Comments: According to ATP-III Guidelines, HDL-C >59 mg/dL is considered anegative risk factor for CHD. LDL Cholesterol Calc 134 mg/dL (Abnormal) Range: 0-99 VLDL Cholesterol Ramandeep 18 mg/dL (Normal) Range: 5-40 Cholesterol, Total 207 mg/dL (Abnormal) Range: 100-199 Triglycerides 89 mg/dL (Normal) Range: 0-149 :06 SUTYD-QHCEOXFLOHH-SREPD (41760) Comments: PATIENT WAS FASTINGPERFORMED BY: [address] [id number] AFP, Serum, Tumor Marker 5.4 ng/mL (Normal) Range: 0.0-8.3 Comments: Khanh ECLIA methodology :06 PTT (Activated Partial Comments: PATIENT WAS FASTINGPERFORMED BY: [address] [id number] Thromboplastin Time) (98478) aPTT 27 {sec} (Normal) Range: 24-33 Comments: This test has not been validated for monitoring unfractionated heparintherapy. aPTT-based therapeutic ranges for unfractionated heparintherapy have not been established. For general guidelines onHeparin monitoring, refer to the [facility] Directory of Services. :06 PT (Prothrobim Time) (32100) Comments: PATIENT WAS FASTINGPERFORMED BY: [facility]6370 [facility] [id number] INR 1.1 (Normal) Range: 0.8-1.2 Comments: Reference interval is for non-anticoagulated patients. . Suggested INR therapeutic range for Vitamin K anta gonist therapy: Standard Dose (moderate intensity therapeutic range): 2.0 - 3.0 Higher intensity therapeutic range 2.5 - 3.5 Prothrombin Time 11.0 {sec} (Normal) Range: 9.1-12.0 :51 HgA1C , Office (93768) HgA1C , Office 5.0 % (Normal) Range: [...] mg/dL (Normal) Range: 70-110 :03 Rapid Flu (44063 x 2) Influenza A Ag positive b (Normal) :27 METABOLIC PANEL, COMPREHENSIVE Comments: PATIENT WAS FASTINGPERFORMED BY: LabCoSaint Peter's University HospitalLawltc5962 [facility] [id number] (13831) ALT (SGPT) 25 [iU]/L (Normal) Range: 0-32 [...] mg/dL (Normal) Range: 65-99 :27 LIPID PANEL (84096) Comments: PATIENT WAS FASTINGPERFORMED BY: [employer] [id number] LDL/HDL Ratio 0.9 {ratio_units} (Normal) Range: 0.0-3.2 LDL Cholesterol Calc 29 mg/dL (Normal) Range: 0-99 VLDL Cholesterol Ramandeep 17 mg/dL (Normal) Range: 5-40 HDL Cholesterol 32 mg/dL (Abnormal) Comments: According to ATP-III Guidelines, HDL-C >59 mg/dL is considered anegative risk factor for CHD. Cholesterol, Total 78 mg/dL (Abnormal) Range: 100-199 Triglycerides 84 mg/dL (Normal) Range: 0-149 :27 TSH (21779) Comments: PATIENT WAS FASTINGPERFORMED BY: [employer] [facility] [id number] TSH 3.990 {uIU/mL} (Normal) Range: 0.450-4.500 :27 CBC WITH MANUAL DIFF Comments: PATIENT WAS FASTINGPERFORMED BY: RankingHeroSaint Peter's University HospitalBxzszr5696 [facility] [id number] Information: [id number] (84719) Immature Grans (Abs) 0.0 {x10E3/uL} Range: 0.0-0.1 [...] Comments: Khanh ECLIA methodologyPerformed at: - [facility] [address] [id number] Director: Manuelito Mendez PhD, Phone: [phone] 79-Nlo-63042:39 CBCMD ANC 2.4 3/uL (Normal) Range: 2.0-7.7 [...] CHOL 130 mg/dL (Normal) Comments: <200 mg/dL Jrfxxwcfb521-215 mg/dL Borderline>240 mg/dL High Risk :39 MIACRE tMICROCREAT 16.5 {mg/g_CRE} (Normal) MIALB 23.3 mg/L (Normal) CREU 141.0 mg/dL (Normal) :39 PT INR 1.1 (Normal) PTP 13.6 s (Normal) Range: 11.9-14.4 :39 PTT PTTP 29.5 s (Normal) Range: 24.1-36.2 :17 Rapid Flu (10611 x 2) Influenza A Ag neg (Normal) :29 HgA1C , Office (61722) HgA1C , Office 5.9 % (Normal) Range: 4.6 - 7.1 :53 FT3 2.9 pg/mL (Normal) Range: 2.18-3.98 :53 T4F 1.26 ng/dL (Normal) Range: 0.76-1.46 :53 TPO 8 {IU/mL} (Normal) Range: 0-34 Comments: Performed at: - [facility] [address] [id number] Director: Codi Robles MD, Phone: [phone] 18-Bhf-066846:53 TSH 1.23 {uIU/mL} (Normal) Range: 0.358-3.74 :04 HgA1C , Office (38027) HgA1C , Office 5.8 % (Normal) Range: 4.6 - 7.1 :26 CBCMD Comments: ORDERED TSH LIPID CMP CBCMD [facility]DR[facility]ACINDA ORDERED VITD CMP CBCD RBCM NORM [...] :26 LIPID Comments: ORDERED TSH LIPID CMP [facility] ORDERED VITD CMP CBCD VLDL [...] {uIU/mL} (Normal) Comments: ORDERED TSH LIPID CMP [facility]EVELIN ORDERED VITD CMP CBCD Range: 0.358-3.74 :26 VITD 44.8 ng/mL (Normal) Comments: ORDERED TSH LIPID CMP [facility]ITALEVELINKI ORDERED VITD CMP CBCD Range: 30.0-100.0 Comments: Vitamin D deficiency has been defined by the [place] ofMedicine and an Endocrine Society practice guideline as alevel of serum 25-OH vitamin D less than 20 ng/mL (1,2).The Endocrine Society went on to further define vitamin Dinsufficiency as a level between 21 and 29 ng/mL (2).1. IOM ([place] of Medicine). 2010. Dietary reference intakes for calcium and D. [place]: The National Academies Press.2. Sami MF, Sophie MOORE, Xiomara LARES, et al. Evaluation, treatment, and prevention of vitamin D deficiency: an Endocrine Society clinical practice guideline. JCEM. 2010; 96(7): 1911-30.Performed at: [address] [id number] Director: Codi Robles MD, Phone: [phone] 27-Jan-20128:02 BILAT SCRN DIGITAL & CAD Radiology [...] Signed GP/GP Professional Interpretat ion Provided By: [facility]iologyCentral [facility], , To consult with a radiologist regarding this report, please call our [id number] line @ Dicta dani on 01/27/12 0813 by Faustina KING,GabrieleTranscribed on 01/27/12 0950 by ITS IMPORTSign by Faustina KING,Prashant on 01/27/12 0951 Sign by: Prashant Delgadillo MD 93-Wko-130324:24 HgA1C , Office (32301) HgA1C , Office 5.7 % (Normal) Range: 4.6 - 7.1 08-Spk-898570:24 Blood Glucose , Office (05752) Blood Glucose , Office 89 (Normal) 65-Zfh-176007:31 Urinalysis, Office (72069) UA - LEUKOCYTE ESTERASE Small (Normal) UA - NITRITE Positive (Normal) URINE UROBILINGN NITA TIMED Normal mg/dL (Normal) UA - PROTEIN 300 mg/dL (Normal) UA - PH 6.0 (Normal) UA - SPECIFIC GRAVITY 1.025 (Normal) UA - KETONES Small mg/dL (Normal) UA - BILIRUBIN Moderate (Normal) UA - GLUCOSE Negative (Normal) :15 HgA1C , Office (86768) HgA1C , Office 6.8 % (Normal) Range: 4.6 - 7.1 :15 Blood Glucose , Office (98757) Blood Glucose , Office 162 (Normal) 48-Eyn-296522:22 THYROID Radiology Report See Note (Normal) Comments: [...] 09/08/11 1330 Sign by: Prashant Delgadillo MD 23-Zlx-07885:59 COMP METABOLIC GAP 9 (Normal) Range: 5-15 [...] COL Comments: PATIENT NOT FASTINGPERFORMED BY: [facility] Vdmvcg7158 [facility] [id number] Information: SRC:UR [id number] COUNT (55232) Antimicrobial MIHEAD (Normal) Comments: S = Susceptible; [...] Final report Culture,Comprehensive (Normal) :32 Urinalysis, Office (93796) UA - LEUKOCYTE ESTERASE Moderate (Normal) URINE UROBILINGN NITA TIMED Normal mg/dL (Normal) UA - PROTEIN 100 mg/dL (Normal) UA - PH 6.0 (Normal) UA - BLOOD Hemolyzed Large (Normal) UA - SPECIFIC GRAVITY 1.025 (Normal) UA - KETONES Negative mg/dL (Normal) UA - BILIRUBIN Negative (Normal) UA - GLUCOSE Negative (Normal) :28 Blood Glucose , Office (18129) Blood Glucose , Office 223 (Normal) :10 Urinalysis, Office (85859) UA - BILIRUBIN Small (Normal) UA - BLOOD Hemolyzed Large (Normal) UA - GLUCOSE Small (Normal) Comments: 100 UA - KETONES Negative mg/dL (Normal) UA - LEUKOCYTE ESTERASE Trace (Normal) UA - NITRITE Positive (Normal) UA - PH 5.0 (Normal) UA - PROTEIN 300 mg/dL (Normal) UA - SPECIFIC GRAVITY 1.020 (Normal) URINE UROBILINGN NITA TIMED 2 mg/dL (Normal) 5-Ssk-319747:29 URINE GENESIS CULTURE-NITA COL Comments: PATIENT NOT FASTINGPERFORMED BY: [facility] Igvnfx9607 [facility] [id number] Information: SRC:UR [id number] COUNT (86222) Antimicrobial MIHEAD (Normal) Comments: S = Susceptible; [...] mL (Normal) Urine Final report (Normal) Culture,Comprehensive 5-Rsn-168752:31 Urinalysis, Office (58203) UA - BILIRUBIN Large (Normal) UA - [...] (Abnormal) Range: 0.358-3.74 :28 HgA1C , Office (97213) HgA1C , Office 8.3 % (Abnormal) Range: 4.6 - 7.1 :28 Blood Glucose , Office (62253) Blood Glucose , Office 176 (Normal) :24 [...] 200-240 mg/dL Borderline >240 mg/dL High Risk 56-Nmk-486840:54 BRAIN/HEAD W/WO CONTRAST Radiology See Note Comments: [...] Prashant Delgadillo MD :44 HgA1C , Office (03349) HgA1C , Office 7.4 % (Abnormal) Range: 4.6 - 7.1 :44 Blood Glucose , Office (35895) Blood Glucose , Office 206 (Normal) :37 [...] Report See Note (Normal) Comments: Exam Number: [id number] AMMOGRAPHY - BILATERAL SCREENING INDICATION:Routine annual screening [...] attaching a ResultCode to this exam. ADDENDUM: [id number] HPBI/MDS Reported By: PRASHANT DELGADILLO :14 HgA1C , Office (72947) HgA1C , Office 7.0 % (Normal) Range: 4.6 - 7.1 :14 Blood Glucose , Office (58582) Blood Glucose , Office 164 (Normal) :30 LASHA DIR SEMI-QL LASHA DIRECT 24 AU/mL (Normal) :30 ANTI-dsDNA AB 10 {IU/mL} (Normal) :30 TSH 6.39 {uIU/mL} (Abnormal) Range: 0.358-3.74 90-Eei-108982:35 C-REACTIVE PROTEIN (60363) Comments: PATIENT NOT FASTINGPERFORMED BY: LabCoSaint Peter's University HospitalIdfydk3440 [facility] [id number] C-Reactive Protein, Quant 6.5 mg/L (Abnormal) Range: 0.0-4.9 82-Sfv-085617:35 SED RATE ERYTHROCYTE (06809) Comments: PATIENT NOT FASTINGPERFORMED BY: [facility]6370 [facility] [id number] Sedimentation Rate-Westergren 14 mm/h (Normal) Range: 0-20 08-Zym-331378:35 RHEUMATOID FACTOR-QUANT (50458) Comments: PATIENT NOT FASTINGPERFORMED BY: [facility]St[facility]6370 [facility] [id number] RA Latex Turbid. 7.6 {IU/mL} (Normal) Range: 0.0-13.9 89-Jmy-743149:35 LASHA (ANTINUCLEAR ANTIBODY) Comments: PATIENT NOT FASTINGPERFORMED BY: [facility]6370 [facility] [id number] (29443) LASHA Direct Positive (Abnormal) :35 T3, FREE (TRIDOTHYRONINE) (42416) Comments: PATIENT NOT FASTINGPERFORMED BY: [facility]6370 [facility] [id number] Triiodothyronine,Free,Serum 2.8 pg/mL (Normal) Range: 2.0-4.4 76-Wle-436756:35 T4, FREE (THYROXINE) (47982) Comments: PATIENT NOT FASTINGPERFORMED BY: [facility]6370 [facility] [id number] T4,Free(Direct) 0.76 ng/dL (Abnormal) Range: 0.82-1.77 31-Pva-367589:35 Anti-TPO Antibody (23101) Comments: PATIENT NOT FASTINGPERFORMED BY: [facility]6370 [facility] [id number] Thyroid Peroxidase (TPO) Ab <6 {IU/mL} (Normal) Range: 0-34 71-Mqc-508517:35 TSH (63940) Comments: PATIENT NOT FASTINGPERFORMED BY: [facility]6370 [facility] [id number] TSH 5.630 {uIU/mL} (Abnormal) Range: 0.450-4.500 Comments: Please note reference interval change 93-Uvd-011842:35 METABOLIC PANEL, Comments: PATIENT NOT FASTINGPERFORMED BY: [facility] Sapfmd1494 [facility] [id number] Information: [id number] COMPREHENSIVE (81781) ALT (SGPT) 55 [iU]/L (Abnormal) Range: 0-40 [...] Glucose, Serum 151 mg/dL (Abnormal) Range: 65-99 95-Eyt-725242:02 GENESIS CULTURE-OTHER (02970) Comments: PATIENT NOT FASTINGPERFORMED BY: REINALDO [facility] Hzipwi3742 [facility] [id number] Information: SRC:THRT [id number] Result 1 Yeast isolated. (Normal) Comments: Moderate growthRequest for further identification must be madewithin 1 week. Upper Respiratory Culture Final report (Normal) 76-But-05470:37 Rapid Strep Test, Office (94431) Rapid Strep Test, Office Negative (Normal) 20-Fsl-850216:11 THYROID (HP) Radiology Report See Note (Normal) Comments: Exam Number: [id number] CLINICAL:This is a 45-year-old female patient with [...] CHOL 147 mg/dL (Normal) Comments: <200 mg/dL Qdpzvkivo588-393 mg/dL Borderline>240 mg/dL High Risk HDL 32 [...] :41 TSH 4.85 {uIU/mL} (Abnormal) Range: 0.358-3.74 43-Pbt-125825:50 URINE GENESIS CULTURE-NITA COL Comments: PATIENT NOT FASTINGPERFORMED BY: [facility] Zjywlo0317 [facility] [id number] Information: SRC:UR ADD [id number] COUNT (55260) Result 1 Klebsiella pneumoniae Comments: 1,000 Colonies/mL [...] STrimethoprim/Sulfa S Urine Final report (Normal) Culture,Comprehensive 06-Grf-39261:55 Urinalysis, Office (16052) UA - LEUKOCYTE ESTERASE Small (Normal) UA - NITRITE Negative (Normal) URINE UROBILINGN NITA TIMED Normal mg/dL (Normal) UA - PROTEIN 30 mg/dL (Normal) UA - PH 6.0 (Normal) UA - BLOOD Negative (Normal) UA - SPECIFIC GRAVITY 1.020 (Normal) UA - KETONES Negative mg/dL (Normal) UA - BILIRUBIN Negative (Normal) UA - GLUCOSE Negative (Normal) 8-Hmx-052112:37 PET/CT,TUMOR,BASE-THIGH,SUBS Radiology Report See Note (Normal) Comments: Exam Number: [id number] EXAM: Body PET study Head to Mid [...] 44:398P, 2003). w Reported By: ADELA MOLINA 0-Nhf-051774:00 PRANEETH+ELPU24 3467 ALBUMIN,U 37.7 % (Normal) CFFAE-7-JFIZ,U 3.2 % (Normal) COYCM-6-BFSF,U 7.6 % (Normal) BETA GLOB,U 23.1 % (Normal) GAMMA GLOB,U 28.5 % (Normal) PRANEETH RESULT,U Comment (Normal) Comments: No monoclonality detected. M-SPIKE,UR% SeeNote % (Normal) Comments: Result: Not Observed PROTEIN, U24 62.1 {mg/24_hr} Range: 30.0-150.0 (Normal) PROTEIN,UR 2.3 mg/dL (Normal) Range: 0.0-15.0 5-Vkc-187072:15 C-REACTIVE PROT < 2.90 mg/L (Normal) Range: 0.0-3.0 Comments: C-Reactive Protein (CRP) provides useful information for thediagnosis, therapy and monitoring of inflammatory processesand associated diseases. For the evaluation of Relative Riskfor Cardiovascular Dise ase, a High Sensitivity CRP (HSCRP)should be ordered. 1-Ajp-155712:15 CBCD,SMEAR DIFF PLT EST SeeNote (Normal) Comments: [...] 4.2-5.4 WBC 4.3 K/mm3 (Abnormal) Range: 4.4-11.0 0-Fxo-674293:15 COMP METABOLIC CL 104 mmol/L (Normal) Range: [...] <126 mg/dLsuggests IMPAIRED HOMEOSTASIS per A.D.A. criteria. 7-Mmc-690301:15 ESR SED RATE 11 mm/h (Normal) Range: 0-20 0-Hgx-184275:15 LDH 197 U/L (Abnormal) Range: 100-190 6-Dgx-280882:15 LIPID HDL 30 mg/dL (Abnormal) Comments: Reference [...] CHOL 154 mg/dL (Normal) Comments: <200 mg/dL Dadcvhkmi878-108 mg/dL Borderline>240 mg/dL High Risk 8-Ydk-037321:15 PROT.[id number] NOTE Comment (Normal) Comments: Protein electrophoresis scan will follow via computer,mail, or emt basic delivery.Performed at: [facility] Lab[address] [id number] Director: Kamlesh Arana MD ALBUMIN,UR 54.2 % (Normal) ILOZT-1-MALA,U 1.2 % (Normal) GPZDE-4-EWDL,U 9.4 % (Normal) BETA GLOB,U 23.4 % (Normal) GAMMA GLOB,U 11.8 % (Normal) M-SPIKE,U SeeNote % (Normal) Comments: Result: Not Observed PROTEIN,UR 13.6 mg/dL (Normal) Range: 0.0-15.0 6-Qhh-420134:15 SPE 005255 A/G RATIO 1.8 (Normal) Range: 0.7-2.0 GLOBULIN, [...] electrophoresis scan will follow via computer,mail, or emt basic delivery. M-SPIKE SeeNote g/dL (Normal) Comments: Result: Not Observed GAMMA GLOBULIN 0.4 g/dL (Abnormal) Range: 0.5-1.6 ALBUMIN 3.9 g/dL (Normal) Range: 3.2-5.6 ALPHA-1 GLOBUL 0.2 g/dL (Normal) Range: 0.1-0.4 ALPHA-2 GLOBUL 0.7 g/dL (Normal) Range: 0.4-1.2 BETA GLOBULIN 0.9 g/dL (Normal) Range: 0.6-1.3 PROTEIN,TOTAL 6.1 g/dL (Normal) Range: 6.0-8.5 46-Scz-340115:28 BRAIN/HEAD WITHOUT CONTRAST Radiology Report See Note (Normal) Comments: Exam Number: [id number] CT SCAN OF BRAIN HISTORYLytic lesion, lymphoma. Scans were obtained at 2.5-mm intervals through the posterior fossaand 5-mm intervals through the remainder of the brai n. The [facility] entstudy is compared to the examination [...] for confirmation. Reported By: TRUE NAGEL M.D. 50-Uew-339456:23 SPINE,CERVICAL WITHOUT CONTRAS Radiology Report See Note (Normal) Comments: Exam Number: [id number] CLINICAL:44 year old female with cervical radiculopathy. [...] tumor involvement. Reported By: SHARYN JASMINE M.D. 34-Qvq-132791:50 Blood Glucose , Office (55254) Blood Glucose , Office 105 (Normal) 65-Ktt-255884:50 HgA1C , Office (70342) HgA1C , Office 6.1 % (Normal) Range: 4.6 - 7.1 29-Tsy-695848:24 URINE GENESIS CULTURE-NITA COL Comments: PATIENT NOT FASTINGPERFORMED BY: REINALDO [facility] Mozesl8604 [facility] [id number] Information: SRC:INGRID [id number] COUNT (13490) Antimicrobial MIHEAD (Normal) Comments: S = Susceptible; [...] mL (Normal) Urine Final report (Normal) Culture,Comprehensive 16-Bbn-087133:41 Urinalysis, Office (08043) UA - LEUKOCYTE ESTERASE Large (Normal) UA - NITRITE Negative (Normal) URINE UROBILINGN NITA TIMED Normal mg/dL (Normal) UA - PROTEIN 100 mg/dL (Normal) UA - PH 5.0 (Normal) UA - BLOOD Hemolyzed Large (Normal) UA - SPECIFIC GRAVITY 1.025 (Normal) UA - KETONES Negative mg/dL (Normal) UA - BILIRUBIN Negative (Normal) UA - GLUCOSE Negative (Normal) 2-Lbk-721249:19 BLOOD GAS, O2 SAT ONLY - INITL Radiology Report See Note (Normal) Comments: Exam Number: [id number] Procedure completed. Please see MEDICAL RECORDS reports in PCI - OP - OP NOTE LET - LETTER. Reported By: BOONE CH M.D. 0-Jsw-159876:19 BLOOD GAS, O2 SAT ONLY - SUBSQ Radiology Report See Note (Normal) Comments: Exam Number: [id number] Procedure completed. Please see MEDICAL RECORDS reports in PCI - OP - OP NOTE LET - LETTER. Reported By: BOONE CH M.D. 3-Bzz-459889:19 BLOOD GAS, O2 SAT ONLY - SUBSQ Radiology Report See Note (Normal) Comments: Exam Number: [id number] Procedure completed. Please see MEDICAL RECORDS reports in PCI - OP - OP NOTE LET - LETTER. Reported By: BOONE CH M.D. 04-Aug-20096:45 RHC/LHC/CORS/LV Radiology Report See Note (Normal) Comments: Exam Number: [id number] Procedure completed. Please see MEDICAL RECORDS reports [...] MIXED GRAM POSITIVE ORGANISMS :58 Urinalysis, Office (46875) UA - BILIRUBIN Negative (Normal) UA - BLOOD Negative (Normal) UA - GLUCOSE Negative (Normal) UA - KETONES Negative mg/dL (Normal) UA - LEUKOCYTE ESTERASE Small (Normal) Comments: aw UA - NITRITE Negative (Normal) UA - PH 6.0 (Normal) UA - PROTEIN Negative mg/dL (Normal) UA - SPECIFIC GRAVITY 1.010 (Normal) URINE UROBILINGN NITA TIMED Normal mg/dL (Normal) :53 HgA1C , Office (83689) HgA1C , Office 5.7 % (Normal) Range: 4.6 - 7.1 :53 Blood Glucose , Office (46472) Blood Glucose , Office 133 (Normal) :24 [...] (Normal) Range: 6.4-8.2 :53 HgA1C , Office (45247) HgA1C , Office 10.0 % (Abnormal) Range: 4.6 - 7.1 :53 Blood Glucose , Office (28913) Blood Glucose , Office 410 (Normal) :46 [...] 11.6-14.6 WBC 4.0 K/mm3 (Abnormal) Range: 4.4-11.0 9-Yod-872627:46 COMP METABOLIC A/G 1.2 {RATIO} (Normal) Range: [...] 200 mg/dLsuggests DIABETES MELLITUS per A.D.A. criteria. 5-Ppa-412766:46 D BILI 0.12 mg/dL (Normal) Range: 0.00-0.30 5-Cdz-607230:46 LIPID CHOL 158 mg/dL (Normal) Comments: <200 [...] mg/L (Normal) UR CREAT 186.7 mg/dL (Normal) 61-Ely-952206:11 LIPID Comments: PATIENT NOT FASTING/DEMANDED TO BE [...] T PROT 6.4 g/dL (Normal) Range: 6.4-8.2 97-Qhh-979264:23 Urinalysis, Office (25415) Comments: done BC UA - BILIRUBIN Negative (Normal) UA - BLOOD Hemolyzed Large (Normal) UA - GLUCOSE Large (Normal) Comments: > 1000mg/dL UA - KETONES Negative mg/dL (Normal) UA - LEUKOCYTE ESTERASE Moderate (Normal) UA - NITRITE Negative (Normal) UA - PH 6.0 (Normal) UA - PROTEIN 30 mg/dL (Normal) UA - SPECIFIC GRAVITY 1.010 (Normal) URINE UROBILINGN NITA TIMED Normal mg/dL (Normal) 24-Uri-451967:44 MYOCARD PERF SPECT REST/STRESS Radiology Report See Note (Normal) Comments: Exam Number: [id number] MYOCARDIAL PERFUSION SCAN TECHNIQUEThe patient was injected [...] of 37%. Reported By: NOE MORRIS M.D. 36-Svh-06420:39 SPINE, LUMBAR W/W/O CONTRAST Radiology Report See Note (Normal) Comments: Exam Number: [id number] MAGNETIC RESONANCE IMAGING OF THE LUMBAR SPINE [...] other abnormality. Reported By: SUSAN GOMEZ M.D. 76-Kpg-975145:04 CULTURE, URINE URINE CULTURE See Note {CFU/mL} (Normal) Comments: COLONY COUNT 25,000-50,000 ORGANISM 1: MIXED GRAM POSITIVE ORGANISMS 36-Nzn-565131:15 Urinalysis, Office (43925) UA - LEUKOCYTE ESTERASE Small (Normal) Comments: aw UA - NITRITE Negative (Normal) UA - PH 5.0 (Normal) UA - PROTEIN Negative mg/dL (Normal) URINE UROBILINGN NITA TIMED Normal mg/dL (Normal) UA - BILIRUBIN Negative (Normal) UA - BLOOD Negative (Normal) UA - GLUCOSE Negative (Normal) UA - KETONES Negative mg/dL (Normal) UA - SPECIFIC GRAVITY 1.025 (Normal) 04-Nyr-584103:09 Blood Glucose , Office (52276) Blood Glucose , Office 231 (Normal) 44-Lvd-526131:09 HgA1C , Office (13952) HgA1C , Office 7.1 % (Normal) Range: [...] for patient's is the eGFRmultiplied by 1.212. [facility] Laboratory uses the abbreviated Modification [...] Disease W/O Kidney Disease>/= 90 Stage One Wzeosu12 - 89 Stage Two Suspect Decreased GFR30 [...] T PROT 6.5 g/dL (Normal) Range: 6.4-8.2 50-Mqs-962332:42 LIPID CHOL 182 mg/dL (Normal) Comments: <200 [...] mg/dL VLDL 36 mg/dL (Normal) Range: 5-40 77-Tij-779910:42 MICROALB:CRE UR MALB:CREAT 35.4 {mg/g_CRE} (Abnormal) MICROALBUMIN,UR 54.7 mg/L (Normal) UR CREAT 154.6 mg/dL (Normal) 13-Nfq-295331:42 TSH 2.57 {uIU/mL} (Normal) Range: 0.34-4.82 :40 CULTURE, URINE URINE CULTURE See Note {CFU/mL} (Normal) Comments: COLONY COUNT 1000-10,000 ORGANISM 1: MIXED GRAM POS & NEG ORGANISMS 09-Wbr-418480:36 Urinalysis, Office (77711) UA - BILIRUBIN Negative (Normal) UA - [...] POS & NEG ORGANISMS :12 Urinalysis, Office (13836) UA - BILIRUBIN Negative (Normal) UA - BLOOD Negative (Normal) UA - GLUCOSE Negative (Normal) UA - KETONES Negative mg/dL (Normal) UA - LEUKOCYTE ESTERASE Small (Normal) UA - NITRITE Negative (Normal) UA - PH 6.0 (Normal) UA - PROTEIN Negative mg/dL (Normal) UA - SPECIFIC GRAVITY 1.005 (Normal) URINE UROBILINGN NITA TIMED Normal mg/dL (Normal) 92-Foh-041299:08 CBCD,SMEAR DIFF CELLS COUNTED 100 (Normal) EOS [...] 47-70 WBC 5.1 K/mm3 (Normal) Range: 4.4-11.0 87-Mjy-221499:08 COMP METABOLIC A/G 1.5 {RATIO} (Normal) Range: [...] Range: 0.34-4.82 :28 Blood Glucose , Office (14294) Blood Glucose , Office 124 (Normal) :28 HgA1C , Office (78202) HgA1C , Office 6.1 % (Normal) Range: 4.6 - 7.1 :38 CERULOPLAS 1560 21.3 mg/dL (Normal) Range: 17.9-53.3 Comments: Performed At: [facility] [place] [address] [id number] FERRITIN 189 ng/mL (Normal) Range: 8-252 :38 HEP-ABC [id number] HB CORE [id number] SeeNote (Normal) Comments: Result: Negative HB SURF [...] Please note reference interval change HEP A AB,T.0242 SeeNote (Normal) Comments: Result: Negative HEP A IgM 6734 SeeNote (Normal) Comments: Result: Negative HEP B CORE,TOT SeeNote (Normal) Comments: Result: Negative HVC Ab <0.1 (Normal) Range: 0.0-0.9 Comments: NegativeNot infected with HCV, unless recent infection issuspected or other evidence exists to indicate HCVinfection. AMENDED REPORT 05/21/081907 HVC Ab previously reported as: RIBA RESULT <TEST NOT PERFORMED> (Normal) 82-Xbt-911025:38 LIVER ALB 3.5 g/dL (Normal) Range: 3.4-5.0 ALK P 162 U/L (Abnormal) Range: 50-136 ALT 50 U/L (Normal) Range: 30-65 AST 21 U/L (Normal) Range: 15-37 D BILI 0.05 mg/dL (Normal) Range: 0.00-0.30 T BILI 0.38 mg/dL (Normal) Range: 0.00-1.00 T PROT 6.5 g/dL (Normal) Range: 6.4-8.2 78-Gut-934497:38 MITOCHN AB 6650 <20.0 {Units} (Normal) Range: [...] T PROT 6.5 g/dL (Normal) Range: 6.4-8.2 5-Pbo-406391:02 THYROID (HP) Radiology Report See Note (Normal) Comments: Exam Number: [id number] THYROID ULTRASOUND HISTORYThyromegaly. High-resolution, real-time linear images [...] is recommended. Reported By: TRUE NAGEL M.D. 57-Nty-627273:05 Blood Glucose , Office (37885) Blood Glucose , Office 135 (Normal) 20-Aoy-220457:05 HgA1C , Office (08896) HgA1C , Office 5.6 % (Normal) Range: 4.6 - 7.1 85-Ved-81567:02 CBCD,SMEAR DIFF ANISO 1+ (Normal) CELLS COUNTED [...] Report See Note (Normal) Comments: Exam Number: [id number] CT BRAIN WITHOUT AND WITH INTRAVENOUS CONTRAST [...] clinically warranted. Reported By: AIDAN MASON M.D. 45-Afx-983550:30 CBCD Comments: CALL [phone] TO [phone] BASO% 0.8 % (Normal) Range: 0-1 EO% [...] Range: 4.4-11.0 :30 COMP METABOLIC Comments: CALL [phone] TO [phone] A/G 1.5 {RATIO} (Normal) Range: 0.9-2.4 ALB [...] T PROT 5.9 g/dL (Abnormal) Range: 6.4-8.2 40-Svt-944804:30 LDH 206 U/L (Abnormal) Comments: CALL [phone] TO [phone] Range: 100-190 :30 URIC 5.7 mg/dL (Normal) Comments: CALL [phone] TO [phone] Range: 2.6-6.0 :30 CULT, DP WOUND Comments: [...] mg/dL (Abnormal) Range: 40-230 Comments: Performed At: [address] [id number] :[id number] LDH 211 U/L (Abnormal) Range: 100-190 [...] PT IN CATHLABPrecautions*: NOT APPLICABLE Range: 0.34-4.82 76-Jzg-608519:20 BMP Comments: COMMENTS: BED 13 FASTPrecautions*: NOT [...] K/mm3 (Abnormal) Range: 4.4-11.0 :30 AFB C&S [id number] Comments: Precautions*: CHEMO PRECAUTIONSSPECIMEN DESCRIPTION: #2 SAME [...] for testing. ec-2 BF/CSF (Normal) 0069 :30 47-Wfp-99285:30 FLUID P-FLU (Normal) Comments: OPERATION Not noted [...] ADDENDUM SIGNED: MATEO CASTANEDA 09/08/06 REPORT SIGNED: OTNI YEPEZ 09/08/0616-Aug-20068:25 CBCD,SMEAR DIFF ANISO 1+ (Normal) [...] DRAWN 07/22/06-TEST MISSED Range: 100-190 :51 SPE [id number] A/G RATIO 1.3 (Normal) Range: 0.7-2.0 ALBUMIN [...] Evidenceof monoclonal protein is not apparent.Performed At: [facility] [place] [address] [id number] M-SPIKE SeeNote (Normal) Comments: Result: Not Observed NOTE: Comment (Normal) Comments: Protein electrophoresis scan will follow via mail orcourier. PROTEIN,TOTAL 6.5 g/dL (Normal) Range: 6.0-8.5 :49 Blood Glucose , Office (02197) Blood Glucose , Office 84 (Normal) :49 HgA1C , Office (41668) HgA1C , Office 6.6 % (Normal) Range: [...] Paroxysmal tachycardia Planned Observations METABOLIC PANEL, BASIC (05931)Indication: CHF (congestive heart failure) On: 48-Lvx-716208:05 Request CPK MB FRACTION (59018)Indication: SOB (shortness of breath) On: :21 Request Comments: stat ASSAY, TROPONIN, QUANTITATIVE (aka Troponin I) (71341)Indication: SOB (shortness of breath) On: :21 Request Comments: stat CBC W/AUTO DIFF WBC (85080)Indication: SOB (shortness of breath) On: :08 Request Comments: stat METABOLIC PANEL, COMPREHENSIVE (80018)Indication: SOB (shortness of breath) On: :08 Request Comments: stat D-Dimer (50995)Indication: SOB (shortness of breath) On: :08 Request Comments: stat BNTP (52041)Indication: SOB (shortness of breath) On: :08 Request Comments: stat CBC with auto diff (96336)Indication: Diabetes mellitus type II, controlled On: :03 Request LIPID PANEL (47617)Indication: Diabetes mellitus type II, controlled On: :03 Request METABOLIC PANEL, COMPREHENSIVE (16796)Indication: Diabetes mellitus type II, controlled On: :03 Request HGB A1C (86673)Indication: Diabetes mellitus type II, controlled On: :02 Request TSH (THYROID STIMULATING HORMONE) (24124)Indication: Acquired hypothyroidism On: :02 Request Metabolic Panel, Basic (38655)Indication: Hyponatremia On: 48-Nyf-219989:00 Request TSH (76004)Indication: Diabetes mellitus type II, controlled On: :48 Request Vitamin B-12 (cyanocobalamin) (49194)Indication: B12 deficiency On: :45 Request CBC WITH MANUAL DIFF (83857)Indication: B12 deficiency On: :45 Request T3, FREE (TRIDOTHYRONINE) (44695)Indication: Thyroid nodule On: :48 Request Comments: add to labs already drawn T4, FREE (THYROXINE) (13169)Indication: Thyroid nodule On: :47 Request Comments: add to labs already drawn Digoxin (46513)Indication: Cardiomyopathy On: :44 Request LIPID PANEL (71896)Indication: Mixed hyperlipidemia On: :43 Request TSH (85549)Indication: Acquired hypothyroidism On: :43 Request Vitamin D Hydroxy (55360)Indication: Vitamin D deficiency On: :43 Request XYUEK-HUHHVHISGXS-TZINT (01028)Indication: Fatty liver On: :42 Request VITAMIN B-12 (CYANOCOBALAMIN) (61082)Indication: Fatigue On: :42 Request URINALYSIS, W/ MICRO (45047)Indication: Diabetes mellitus type II, controlled On: :30 Request MICROALBUMIN: CREATININE RATIO (14946) AND (21671)Indication: Diabetes mellitus type II, controlled On: : Request CBC with auto diff (24116)Indication: Diabetes mellitus type II, controlled On: :29 Request METABOLIC PANEL, COMPREHENSIVE (12416)Indication: Diabetes mellitus type II, controlled On: :29 Request HGB A1C (34136)Indication: Diabetes mellitus type II, controlled On: 72-Ijx-184300:29 Request HEPATIC FUNCTION PANEL (63144)Indication: Elevated liver enzymes On: 1-Bmy-364615:38 Request Comments: do in hospital tuesday when get US Metabolic Panel, Comprehensive (24643)Indication: Epigastric pain On: 10-Jzv-392362:54 Request Sed Rate Erythrocyte (25253)Indication: Epigastric pain On: :54 Request CBC, Platelets & Auto Diff (32501)Indication: Epigastric pain On: :54 Request OVA & PARASITE DIR SMEAR (25351)Indication: Diarrhea On: :53 Request OCCULT BLOOD FECES SCREEN (85313)Indication: Diarrhea On: :53 Request LEUKOCYTE COUNT, FECAL (46676)Indication: Diarrhea On: :53 Request C-DIFFICILE, STOOL (74035)Indication: Diarrhea On: :53 Request GENESIS CULTURE-STOOL (38273)Indication: Diarrhea On: :53 Request Magnesium (46246)Indication: Fatigue On: 72-Pdp-291318:42 Request Vitamin B-12 (cyanocobalamin) (28975)Indication: Fatigue On: 96-Rzy-778275:41 Request MICROALBUMIN: CREATININE RATIO (69370) AND (31722)Indication: Diabetes mellitus type II, controlled On: 02-Eym-682099:40 Request LIPID PANEL (65346)Indication: Mixed hyperlipidemia On: 48-Qsn-915118:39 Request CBC W/AUTO DIFF WBC (43766)Indication: Fatty liver On: 91-Scw-734366:30 Request METABOLIC PANEL, COMPREHENSIVE (89124)Indication: Fatty liver On: 22-Ete-294472:30 Request Vitamin D Hydroxy (20796)Indication: Vitamin D deficiency On: 80-Kls-011252:30 Request TSH (61286)Indication: Acquired hypothyroidism On: 28-Qbm-700286:30 Request Digoxin (24023)Indication: Cardiomyopathy On: 00-Hms-607566:29 Request LIPASE (62769)Indication: Epigastric pain On: :28 Request AMYLASE (26451)Indication: Epigastric pain On: 02-Mpx-172326:28 Request URINE GENESIS CULTURE-IDENTIFICATN (21166)Indication: Leukocytes in urine On: 73-Nqb-332215:38 Request MICROALBUMIN: CREATININE RATIO (01140) AND (70467)Indication: Essential hypertension with goal blood pressure less than 130/80 On: :58 Request CBC W/AUTO DIFF WBC (77849)Indication: Essential hypertension with goal blood pressure less than 130/80 On: :58 Request METABOLIC PANEL, COMPREHENSIVE (64218)Indication: Essential hypertension with goal blood pressure less than 130/80 On: :58 Request CYDWW-ACFSUBXLWVS-CKBJL (23405)Indication: Abnormal tumor markers On: :57 Request Vitamin D Hydroxy (32569)Indication: Vitamin D deficiency On: :09 Request LIPOPROTEIN, BLD, BY NMR (20951)Indication: Mixed hyperlipidemia On: :09 Request CBC W/AUTO DIFF WBC (11024)Indication: Diabetes mellitus type II, controlled On: :09 Request METABOLIC PANEL, COMPREHENSIVE (27553)Indication: Diabetes mellitus type II, controlled On: :09 Request Potassium Serum (09609)Indication: Hypopotassemia On: 56-Lor-042005:02 Request XVYRF-CKZLVQRRLXC-OVNNN (42676)Indication: Fatty liver On: :57 Request MICROALBUMIN: CREATININE RATIO (50649) AND (54580)Indication: Essential hypertension with goal blood pressure less than 130/80 On: :45 Request CBC W/AUTO DIFF WBC (38729)Indication: Essential hypertension with goal blood pressure less than 130/80 On: :45 Request METABOLIC PANEL, COMPREHENSIVE (35852)Indication: Essential hypertension with goal blood pressure less than 130/80 On: :45 Request Vitamin D Hydroxy (03059)Indication: Vitamin D deficiency On: :45 Request TSH (29857)Indication: Acquired hypothyroidism On: :45 Request LIPID PANEL (08782)Indication: Mixed hyperlipidemia On: :45 Request CBC W/AUTO DIFF WBC (14600)Indication: Diabetes mellitus type II, controlled On: :28 Request WBJXW-NYCNFPVLPFT-VENHG (31359)Indication: Fatty liver On: 68-Afk-493140:03 Request METABOLIC PANEL, COMPREHENSIVE (45321)Indication: Mixed hyperlipidemia On: :55 Request LIPOPROTEIN, BLD, BY NMR (40759)Indication: Mixed hyperlipidemia On: :55 Request Metabolic Panel, Basic (77111)Indication: Hypopotassemia On: :55 Request Comments: 10 days CBC (AUTO) (73952)Indication: Uncontrolled type II diabetes mellitus On: : Request Vitamin D Hydroxy (20929)Indication: Vitamin D deficiency On: : Request MICROALBUMIN: CREATININE RATIO (94356) AND (53882)Indication: Uncontrolled type II diabetes mellitus On: 69-Aad-688774:02 Request METABOLIC PANEL, COMPREHENSIVE (59939)Indication: Essential hypertension with goal blood pressure less than 130/80 On: 65-Hvz-056753:02 Request GTVTZ-ZGYYNRRVTJO-JOUXA (13247)Indication: Fatty liver On: : Request LIPID PANEL (23240)Indication: Mixed hyperlipidemia On: 99-Oqy-534922: Request TSH (12144)Indication: Thyroid nodule On: : Request CBC W/AUTO DIFF WBC (43924)Indication: Uncontrolled type II diabetes mellitus On: :47 Request METABOLIC PANEL, COMPREHENSIVE (98976)Indication: Uncontrolled type II diabetes mellitus On: :47 Request LIPID PANEL (56899)Indication: Mixed hyperlipidemia On: :47 Request Vitamin D Hydroxy (03350)Indication: Vitamin D deficiency On: 35-Yst-370592:47 Request UUUEE-QCIRKQNJJYC-XUTGS (08922)Indication: Fatty liver On: :27 Request CBC W/AUTO DIFF WBC (66043)Indication: Uncontrolled type II diabetes mellitus On: :26 Request LIPID PANEL (60930)Indication: Mixed hyperlipidemia On: :25 Request MICROALBUMIN: CREATININE RATIO (66827) AND (61817)Indication: Uncontrolled type II diabetes mellitus On: :25 Request TSH (54002)Indication: Acquired hypothyroidism On: :25 Request METABOLIC PANEL, COMPREHENSIVE (32329)Indication: Essential hypertension with goal blood pressure less than 130/80 On: :25 Request Vitamin D Hydroxy (10514)Indication: Vitamin D deficiency On: :25 Request CALCIFEDIOL (76412)Indication: Vitamin D deficiency On: 12-Zmm-045280:44 Request Comments: to be done Jun 2015 after done with ergocalciferol URINE GENESIS CULTURE (NITA COL COUNT) (54449)Indication: UTI (lower urinary tract infection) On: 0-Fsj-709873:22 Request LIPID PANEL (51428)Indication: Mixed hyperlipidemia On: 1-Ydt-450473:15 Request CBC W/AUTO DIFF WBC (75696)Indication: Uncontrolled type II diabetes mellitus On: 2-Wbz-232753:14 Request METABOLIC PANEL, COMPREHENSIVE (48474)Indication: Uncontrolled type II diabetes mellitus On: 0-Gah-157568:14 Request TSH (65279)Indication: Acquired hypothyroidism On: 9-Goe-991381:14 Request SEVYM-JOFBSLJKQMA-HBZYJ (70555)Indication: Fatty liver On: 1-Iab-686848:14 Request CBC, Platelets & Auto Diff (30046)Indication: HX, PERSONAL, MALIGNANCY, LYMPHATIC NEC On: 67-Vzt-50335:07 Request CBC WITH MANUAL DIFF (84873)Indication: Abnormal glucose tolerance test On: :33 Request MICROALBUMIN: CREATININE RATIO (13789) AND (65778)Indication: Abnormal glucose tolerance test On: :33 Request LIPID PANEL (11557)Indication: Mixed hyperlipidemia On: :31 Request METABOLIC PANEL, COMPREHENSIVE (37081)Indication: Abnormal glucose tolerance test On: :31 Request URINE GENESIS CULTURE-NITA COL COUNT (46131)Indication: Dysuria On: 96-Emk-428986:03 Request RETICULOCYTE COUNT (83370)Indication: Anemia On: :37 Request Iron (66081)Indication: Anemia On: :37 Request Ferritin (31518)Indication: Anemia On: :37 Request CBC (Auto) (01345)Indication: Anemia On: :37 Request CBC, Platelets & Auto Diff (69186)Indication: Fever On: :03 Request Metabolic Panel, Comprehensive (21321)Indication: Fever On: :03 Request HgA1C , Office (22291)Indication: Abnormal glucose tolerance test On: 69-Cwe-19815:55 Request CBC WITH MANUAL DIFF (20567)Indication: Abnormal glucose tolerance test On: :53 Request METABOLIC PANEL, COMPREHENSIVE (51364)Indication: Abnormal glucose tolerance test On: :53 Request LIPID PANEL (14768)Indication: Mixed hyperlipidemia On: :53 Request PSTBZ-BIJCRVKPLWP-PZOSV (91989)Indication: Fatty liver On: :53 Request PTT (Activated Partial Thromboplastin Time) (13989)Indication: Fatty liver On: :53 Request PT (Prothrobim Time) (73757)Indication: Fatty liver On: :53 Request MICROALBUMIN: CREATININE RATIO (09664) AND (54073)Indication: Abnormal glucose tolerance test On: 41-Crj-144241:49 Request Anti-TPO Antibody (17136)Indication: Acquired hypothyroidism On: 07-Wsp-214811:14 Request Comments: 1 month TSH (15731)Indication: Acquired hypothyroidism On: 91-Vkk-767281:13 Request Comments: 1 month T4, FREE (THYROXINE) (95273)Indication: Acquired hypothyroidism On: :13 Request Comments: 1 month T3, FREE (TRIDOTHYRONINE) (38471)Indication: Acquired hypothyroidism On: 15-Nvh-245457:13 Request Comments: 1 month CBC WITH MANUAL DIFF (71270)Indication: Abnormal glucose tolerance test On: :38 Request METABOLIC PANEL, COMPREHENSIVE (25650)Indication: Abnormal glucose tolerance test On: :38 Request LIPID PANEL (80031)Indication: Mixed hyperlipidemia On: :38 Request MICROALBUMIN: CREATININE RATIO (26387) AND (45442)Indication: Abnormal glucose tolerance test On: 70-Xar-143987:56 Request CBC WITH MANUAL DIFF (67665)Indication: Elevated LFTs On: 76-Puq-500362:56 Request METABOLIC PANEL, COMPREHENSIVE (44492)Indication: Elevated LFTs On: 85-Cjl-146498:56 Request LIPID PANEL (75820)Indication: Mixed hyperlipidemia On: 51-Jyn-625626:56 Request TSH (98172)Indication: Acquired hypothyroidism On: 65-Jjq-149038:56 Request CBC WITH MANUAL DIFF (67295)Indication: Essential hypertension with goal blood pressure less than 130/80 On: :34 Request TSH (24609)Indication: Acquired hypothyroidism On: :34 Request METABOLIC PANEL, COMPREHENSIVE (41475)Indication: Fatty liver On: :33 Request LIPID PANEL (12538)Indication: Mixed hyperlipidemia On: :33 Request MICROALBUMIN: CREATININE RATIO (04363) AND (07124)Indication: Uncontrolled type II diabetes mellitus On: :46 Request TSH (05616)Indication: Acquired hypothyroidism On: :46 Request LIPID PANEL (30479)Indication: Mixed hyperlipidemia On: 48-Dss-07728:45 Request METABOLIC PANEL, COMPREHENSIVE (59843)Indication: Elevated LFTs On: :45 Request HgA1C , Office (88223)Indication: Uncontrolled type II diabetes mellitus On: :28 Request URINE GENESIS CULTURE-NITA COL COUNT (22634)Indication: Cystitis, acute On: :43 Request URINE GENESIS CULTURE-IDENTIFICATN (12632)Indication: Dysuria On: :10 Request CBC WITH MANUAL DIFF (83474)Indication: Headache On: 55-Ujc-618021:56 Request METABOLIC PANEL, COMPREHENSIVE (68350)Indication: Headache On: 47-Kjo-162238:56 Request LIPID PANEL (52873)Indication: Mixed hyperlipidemia On: 32-Gdp-418574:56 Request TSH (53295)Indication: Acquired hypothyroidism On: 47-Yfr-199580:56 Request METABOLIC PANEL, COMPREHENSIVE (00335)Indication: Uncontrolled type II diabetes mellitus On: 22-Apn-631571:28 Request HEPATIC FUNCTION PANEL (15103)Indication: Mixed hyperlipidemia On: :28 Request LIPID PANEL (06490)Indication: Mixed hyperlipidemia On: : Request LIPID PANEL (61538)Indication: Mixed hyperlipidemia On: :39 Request MICROALBUMIN: CREATININE RATIO (58147) AND (73474)Indication: Uncontrolled type II diabetes mellitus On: :39 Request CBC WITH MANUAL DIFF (60820)Indication: Essential hypertension with goal blood pressure less than 130/80 On: :39 Request METABOLIC PANEL, COMPREHENSIVE (89728)Indication: Elevated LFTs On: :39 Request TSH (62670)Indication: Acquired hypothyroidism On: :36 Request TSH (18013)Indication: Thyroid nodule On: :20 Request METABOLIC PANEL, COMPREHENSIVE (83493)Indication: Elevated LFTs On: :19 Request LIPID PANEL (04798)Indication: Mixed hyperlipidemia On: :19 Request C-REACTIVE PROTEIN (47114)Indication: Abnormal findings on diagnostic imaging of other specified body structures On: 81-Jcx-254194: Request SED RATE ERYTHROCYTE (76348)Indication: Abnormal findings on diagnostic imaging of other specified body structures On: 34-Sqj-553175: Request LDH (LD) (LACTATE DEHYDROGENASE) (20969)Indication: Abnormal findings on diagnostic imaging of other specified body structures On: 07-Eid-600243: Request Urine Protein Electrophoresis (UPEP) (78331)Indication: Abnormal findings on diagnostic imaging of other specified body structures On: 24-Bzc-427765: Request Serum Protein Electrophoresis (SPEP) (56454)Indication: Abnormal findings on diagnostic imaging of other specified body structures On: 33-Auw-415167: Request METABOLIC PANEL, COMPREHENSIVE (38591)Indication: Diabetes mellitus type II, controlled On: :19 Request LIPID PANEL (48718)Indication: Mixed hyperlipidemia On: : Request URINE GENESIS CULTURE-NITA COL COUNT (88273)Indication: Dysuria On: 49-Iuj-759219:58 Request HEPATIC FUNCTION PANEL (96866)Indication: Elevated LFTs On: :18 Request LIPID PANEL (14726)Indication: Mixed hyperlipidemia On: 94-Sex-722486:17 Request MICROALBUMIN: CREATININE RATIO (92109) AND (90986)Indication: Uncontrolled type II diabetes mellitus On: 1-Nhr-969073:47 Request CBC WITH MANUAL DIFF (87714)Indication: Uncontrolled type II diabetes mellitus On: 1-Ygo-924532:47 Request METABOLIC PANEL, COMPREHENSIVE (14274)Indication: Uncontrolled type II diabetes mellitus On: 1-Txl-234936:47 Request HEPATIC FUNCTION PANEL (16191)Indication: Elevated LFTs On: 9-Ddi-596894:45 Request LIPID PANEL (56714)Indication: Mixed hyperlipidemia On: 0-Get-829920:44 Request HEPATIC FUNCTION PANEL (23082)Indication: Fatty liver On: 5-Xzo-824102:30 Request LIPID PANEL (14405)Indication: Mixed hyperlipidemia On: 0-Ijt-081402:30 Request URINE GENESIS CULTURE (NITA COL COUNT) (49412)Indication: Low back pain potentially associated with radiculopathy On: 92-Mds-452914:03 Request MICROALBUMIN: CREATININE RATIO (14034) AND (00313)Indication: Dysuria On: 51-Pey-503038:05 Request LIPID PANEL (47938)Indication: Dysuria On: 45-Hjg-235129:05 Request TSH (80705)Indication: Dysuria On: 48-Xah-861774:05 Request METABOLIC PANEL, COMPREHENSIVE (92510)Indication: Dysuria On: 21-Osk-148229:04 Request CBC WITH MANUAL DIFF (27159)Indication: Dysuria On: 96-Use-019953:04 Request URINE GENESSI CULTURE-NITA COL COUNT (08732)Indication: Dysuria On: 24-Eub-715854:45 Request URINE GENESIS CULTURE (NITA COL COUNT) (19807)Indication: Dysuria On: 50-Xyu-203434:17 Request METABOLIC PANEL, COMPREHENSIVE (10865)Indication: Fatty liver On: 61-Twa-80486:58 Request Magnesium (95281)Indication: Palpitations On: 70-Sab-11911:51 Request TSH (14053)Indication: Palpitations On: 54-Pfj-19758:51 Request METABOLIC PANEL, COMPREHENSIVE (43961)Indication: Palpitations On: 17-Usf-92246:51 Request CBC WITH MANUAL DIFF (54244)Indication: Palpitations On: 77-Ywq-90676:51 Request GGT (Gamma Glutamyl Transferase) ([id number])Indication: Elevated LFTs On: 55-Mjm-960482:16 Request HEPATIC FUNCTION PANEL ([id number])Indication: Elevated LFTs On: 20-Zhq-349797:16 Request VITAMIN B-12 (CYANOCOBALAMIN) ([id number])Indication: Fatigue On: 05-Uil-79821:23 Request MICROALBUMIN URINE QUANT ([id number])Indication: Diabetes mellitus type II, controlled On: :22 Request TSH ([id number])Indication: Fatigue On: :22 Request CBC WITH MANUAL DIFF ([id number])Indication: Diabetes mellitus type II, controlled On: :22 Request METABOLIC PANEL, COMPREHENSIVE ([id number])Indication: Diabetes mellitus type II, controlled On: :22 Request LIPID PANEL ([id number])Indication: Mixed hyperlipidemia On: :22 Request HEPATIC FUNCTION PANEL ([id number])Indication: Mixed hyperlipidemia On: [id number] Request LIPID PANEL ([id number])Indication: Mixed hyperlipidemia On: [id number]-[id number] Request Comments: in 3 mos Planned Encounters Medical; [facility] 1 Month FU - On: 12-Sep-2018 8:00 [facility] Fast DO, Sangeetha A Fast DO, Sangeetha A Medical; Overnight Pulse Ox Placement - On: 20-Sep-2018 13:00 [facility] Visit, Nurse Planned Procedures Echo CompleteBy: Fast DO, Sangeetha A On: 04-Sep-2018 Intent Fast DO, Sangeetha A CTA CHEST W/W/O CONTRAST ([id number])By: On: 04-Sep-2018 Intent Fast DO, Sangeetha A Fast DO, Sangeetha A Overnight Pulse OX ([id number])By: Fast On: 04-Sep-2018 Intent DO, Sangeetha A Fast DO, Sangeetha A Spirometry ([id number])By: Fast DO, On: 04-Sep-2018 Intent Sangeetha A Fast DO, Sangeetha A Comments: difficutly with insp effort severe restriction ELECTROCARDIOGRAM, COMPLETE (ECG) On: 04-Sep-2018 Intent ([id number])By: Fast DO, Sangeetha A Fast DO, Comments: ekg- 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 and possible recent anterior wall mi- nonspecific st depression Sangeetha A Flu Vaccine (Quadrivalent) [id number]: On: 21-Jul-2018 Intent Fast DO, Sangeetha A Fast DO, Sangeetha A SCREENING DIGITAL TOMOSYNTHESIS OF On: 21-Jul-2018 Intent BREAST ([id number])By: Fast DO, Sangeetha A Fast DO, Sangeetha A B 12 Injection, 1000 mcg ([id number])By: On: 31-May-2018 Intent Fast DO, Sangeetha A Fast DO, Sangeetha A Comments: Lot#[id number] EXP:[id number] given:left deltoid Given By: clarita albright ABN signed CT - Abdomen (IV Contrast Needed)By: On: 31-May-2018 Intent Fast DO, Sangeetha A Fast DO, Sangeetha A Doppler Ultrasound OtherBy: Fast DO, On: 19-May-2018 Intent Sangeetha A Fast DO, Sangeetha A Comments: left arm ULTRASOUND OF LIVER ([id number])By: On: 24-Feb-2018 Intent Jennifer Rios MD PFT - CompleteBy: Fast DO, Sangeetha A On: 21-Oct-2017 Intent Fast DO, Sangeetha A Comments: at [facility] SCREENING DIGITAL TOMOSYNTHESIS OF On: 21-Oct-2017 Intent BREAST ([id number])By: Fast DO, Sangeetha A Comments: end of oct Fast DO, Sangeetha A EsophagramBy: Fast DO, Sangeetha A Fast On: 21-Oct-2017 Intent DO, Sangeetha A Comments: with 12 mm tablet ELECTROCARDIOGRAM, COMPLETE (ECG) On: 21-Oct-2017 Intent ([id number])By: Fast DO, Sangeetha A Fast DO, Sangeetha A Flu Vaccine (Quadrivalent) [id number]: On: 07-Jun-2017 Intent Fast DO, Sangeetha A [...] DO, Sangeetha A DEXA SCAN AXIAL SKELETON ([id number])By: On: 16-Aug-2016 Intent Fast DO, Sangeetha A Fast DO, Sangeetha A MAMMOGRAM, SCREENING, BOTH BREAST On: 16-Aug-2016 Intent ([id number])By: Fast DO, Sangeetha A Fast DO, Sangeetha A ELECTROCARDIOGRAM, COMPLETE (ECG) On: 16-Aug-2016 Intent ([id number])By: Fast DO, Sangeetha A Fast DO, Sangeetha A Flu Vaccine (Quadrivalent) [id number]: On: 16-Aug-2016 Intent Fast DO, Sangeetha A Fast DO, Sangeetha A Comments: FLUlot: [id number]/09site:Lt deltoidroute:IMdose:.[facility] [place] [facility] OF INFLUENZA VIRUS On: 16-Aug-2016 Intent VACCINE ([id number])By: Fast DO, Sangeetha A Fast DO, Sangeetha A Ultrasound - ThyroidBy: Fast DO, On: 10-Nov-2015 Intent Sangeetha A Fast DO, Sangeetha A Ultrasound - LiverBy: Fast DO, Sangeetha On: 10-Nov-2015 Intent A Fast DO, Sangeetha A Flu Vaccine (Quadrivalent) [id number]: On: 08-Aug-2015 Intent Fast DO, Sangeetha A Fast DO, Sangeetha A Comments: Lot #[id number]-L dltd, IMDose prefilled syringegiven by:Romero, AMRITANVIS and ABN signed MAMMOGRAM, SCREENING, BOTH BREAST On: 08-Aug-2015 Intent ([id number])By: Fast DO, Sangeetha A Fast DO, Sangeetha A Ultrasound - ThyroidBy: Fast DO, On: 08-Aug-2015 Intent Sangeetha A Fast DO, Sangeetha A Ultrasound - LiverBy: Fast DO, Sangeetha On: 08-Aug-2015 Intent A Fast DO, Sangeetha A ADMINISTRATION OF PNEUMOCOCCAL On: 01-Nov-2014 Intent VACCINE (G0009)By: Fast DO, Sangeetha A Fast DO, Sangeetha A PNEUM VAC ADLT/IMUMNOSPR, SBC/INTRM On: 01-Nov-2014 Intent ([id number])By: Fast DO, Sangeetha A Fast DO, Comments: Lot:[id number]:02/29/16Dose:0.5mgRoute:imSite:mk Donis By:BATSHEVA Ring A Ultrasound - LiverBy: Tavon DO, Sangeetha On: 05-Jul-2014 Intent A Fast DO, Sangeetha A BILATERAL MAMMOGRAMS ([id number])By: Tavon On: 05-Jul-2014 Intent DO, Sangeetha A Fast DO, Sangeetha A Ultrasound - ThyroidBy: Tavon DO, On: 05-Jul-2014 Intent Sangeetha A Fast DO, Sangeetha A ADMINISTRATION OF INFLUENZA VIRUS On: 05-Jul-2014 Intent VACCINE ([id number])By: Arpan Irvin DOa A Comments: Influenzalot:[id number]:03/25/2015dose:0.5mLRoute: IMlocation:Lois donis by:marika Fast DO, Sangeetha A FLU VAC, SPLIT, >3 YEARS, INTRAMUSC On: 05-Jul-2014 Intent ([id number])By: Sangeetha Irvin DO Fast DO, Sangeetha A INFUSION, NORMAL SALINE SOLUTION , On: 15-Apr-2014 Intent 250 CC ([id number])By: Angelina Winn CNP Rocephon Injection, 1 Gm ([id number])By: On: 15-Apr-2014 Intent Angelina Winn CNP Comments: Rocephin 1gmLot #[id number]. [id number] in R hand x 1 stick with [...] SPLIT, >3 YEARS, INTRAMUSC On: 27-Jul-2013 Intent ([id number])By: Fast DO, Sangeetha A Fast DO, Sangeetha A Eprescribed prescriptions ([id number])By: On: 04-Jun-2013 Intent Delisa Melendez LPN SPECIMEN HANDLING/TRANSPORT On: 04-Jun-2013 Intent ([id number])By: Delisa Melendez LPN INFUSION, NORMAL SALINE SOLUTION , On: 15-Feb-2013 Intent 1000 CC (Special Coverage Comments: 500 cc Instructions Apply. See MCM: 2049) ([id number])By: Jennifer Rios MD HYDRATION IV INFUSION, INIT On: 15-Feb-2013 Intent ([id number])By: Jennifer Rios MD Ultrasound - ThyroidBy: Fast DO, On: 19-Jan-2013 Intent Sangeetha A Fast DO, Sangeetha A MAMMOGRAM, SCREENING, BOTH BREASTS On: 19-Jan-2013 Intent ([id number])By: Fast DO, Sangeetha A Fast DO, Comments: due in january Sangeetha A Eprescribed prescriptions ([id number])By: On: 19-Jan-2013 Intent Isabella Grigsby Pulse Oximetry ([id number])By: Seb, On: 29-Sep-2012 Intent Isabella Comments: 98% [...] MAMMOGRAM, SCREENING, BOTH BREASTS On: 24-Jan-2012 Intent ([id number])By: Fast DO, Sangeetha A Fast DO, Sangeetha A TDAP VACCINE >7 IM ([id number])By: Fast On: 04-Oct-2011 Intent DO, Sangeetha A Fast DO, Sangeetha A Comments: Lot:[id number]:08/12/13Amt:prefilledRoute:IMSite:right deltGiven By: NATALEE Spence Aerosol Treatment ([id number])By: Blanca On: 26-Aug-2011 Intent Jennifer KING Pulse Oximetry ([id number])By: Blanca On: 26-Aug-2011 Intent Jennifer KING SPECIMEN HANDLING/TRANSPORT On: 23-Jul-2011 Intent ([id number])By: Delisa Melendez LPN FLU VAC, SPLIT, >3 YEARS, INTRAMUSC On: 05-Jul-2011 Intent ([id number])By: Isabella Grigsby Comments: Lot #[id number]/20/12Site-left deltoidgiven by: Lisa Bello LPN Ultrasound - ThyroidBy: Fast DO, On: 05-Jul-2011 Intent Sangeetha A Fast DO, Sangeetha A MAMMOGRAM, SCREENING, BOTH BREASTS On: 05-Jul-2011 Intent ([id number])By: Fast DO, Sangeetha A Fast DO, Sangeetha A ADMINISTRATION OF INFLUENZA VIRUS On: 05-Jul-2011 Intent VACCINE (G0008)By: Isabella Grigsby Eprescribed prescriptions ([id number])By: On: 04-Jun-[address] - Brain/HeadBy: Fast DO, Sangeetha A On: 07-Oct-2010 Intent Fast DO, Sangeetha A Comments: with and without contrast MAMMOGRAM, SCREENING, BOTH BREASTS On: 26-Jun-2010 Intent ([id number])By: Fast DO, Sangeetha A Fast DO, Sangeetha A ADMINISTRATION OF INFLUENZA VIRUS On: 26-Jun-2010 Intent VACCINE (G0008)By: Fast DO, Sangeetha A Fast DO, Sangeetha A FLU VAC, SPLIT, >3 YEARS, INTRAMUSC On: 26-Jun-2010 Intent ([id number])By: Fast DO, Sangeetha A Fast DO, Comments: Lot:[id number] 4PExp:12/2010Dose:0.5mlRoute:IMSite:Left DeltoidGiven by: HEIDI Alberto Ultrasound - ThyroidBy: Fast DO, On: 07-Jan-2010 Intent Sangeetha A Fast DO, Sangeetha A CT - Spine/CervicalBy: Fast DO, On: 15-Dec-2009 Intent Sangeetha A Fast DO, Sangeetha A Comments: 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 -- need to rule out Pulse Oximetry ([id number])By: Fast DO, On: 09-Jul-2009 Intent Sangeetha A Fast DO, Sangeetha A Spirometry ([id number])By: Fast DO, On: 10-Jul-2009 Intent Sangeetha A Fast DO, Sangeetha A Comments: good effort and curve- mild restriciton Radiology - Chest- PA and LatBy: On: 09-Jul-2009 Intent Fast DO, Sangeetha A Fast DO, Sangeetha A Pulse Oximetry ([id number])By: Fast DO, On: 10-Jul-2009 Intent Sangeetha A Fast DO, Sangeetha A Comments: 98 FLU VAC, SPLIT, >3 YEARS, INTRAMUSC On: 09-Jul-2009 Intent ([id number])By: Isabella Grigsby Comments: Lot #[id number]-1/2010Site-right deltoidDose0.5mlgiven by Juventino Nye LPN IMMUNIZ ADMNIN, 1 VAC, SNGL/COMBO On: 09-Jul-2009 Intent ([id number])By: Isabella Grigsby EKG ([id number])By: Fast DO, Sangeetha A On: 10-Oct-2008 Intent [...] ADMNIN, 1 VAC, SNGL/COMBO On: 10-Jul-2008 Intent ([id number])By: Fast DO, Sangeetha A Fast DO, Sangeetha A FLU VAC, SPLIT, >3 YEARS, INTRAMUSC On: 10-Jul-2008 Intent ([id number])By: Fast DO, Sangeetha A Fast DO, Comments: injection given in left deltoid, pt tolerated welllot # [id number]/ Sangeetha A Holter Monitor 24 hrsBy: Fast DO, On: 10-Jul-2008 Intent Sangeetha A Fast DO, Sangeetha A EKG ([id number])By: Marlene Reddy On: 10-Jul-2008 Intent Comments: ekg [...] [facility]ps[facility]: [facility] 31.0-31.9,adult, Nonsmoker, SOB (shortness [...] using tylenol and will go back to [place] if need be for shot-sugar fine-n foot [...] off metformin and lisinopril andthen went to [place] for couple weeks then had multiple falls sent back to hospital and transferred [facility]- and doing [...] fasting blood sugars : (was lower before [place] and 139 last week fasting in the [...] Reason for hospitalization abdominal pain (Went to [facility] on 02/28/15). Hospitalization details include: [...] previously evaluated by a primary physician (at [facility]- Dr Reyes ). Presentation included [...] is helping her mood- has followup in [place] may 04 - her weight down 20 [...] sees heart failure doctor next week [facility] - -- mood ebs and flows- sees [...] of all the problems -goes back to [facility] on tuesday and psych in 2 [...] less). 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
--- OUTSIDE RECORDS SUMMARY | 2018-10-21 23:10 | XMS RPT_ITS | Continuity of Care Document ---
:1965 Author Organization [facility] Address [facility] [address] [place] [address] Phone Care Team Providers Name Role Phone [...] Quantity: 30 {QS} Refills: 11 Ordered:08-Sep-2018 Long SENIOR CLINICAL CONSULTANT, Amelia L Start : 08-Sep-2018 Active Comments:Home [...] Quantity: 10 {Tablet} Refills: 0 Ordered:23-Feb-2018 Long SENIOR CLINICAL CONSULTANT, Amelia L Start : 23-Feb-2018 Active AMITIZA, [...] Quantity: 30 {Tablet} Refills: 0 Ordered:05-Jul-2011 Al SENIOR CLINICAL CONSULTANTDelisa Chaidez Start : 05-Jul-2011 End : 04-Aug-2011 [...] : 25-Jan-2018 End : 19-May-2018 Inactive ERGOCALCIFEROL, 73824YZIU (Oral Capsule) 1 (one) Capsule Capsule twice [...] : 23-Jul-2011 End : 02-Aug-2011 Inactive MAXITROL, 3.5-73582-7.1 (Ophthalmic Ointment) apply to eye lids as [...] hs (50 MG) Inactive Comments:Dr. Hankins NYSTATIN, 885976CMAV/ML (Mouth/Throat Suspension) 5cc Suspension 5 times daily [...] Quantity: 30 {Capsule} Refills: 0 Ordered:22-Feb-2013 Jennifer Riso MD Start : 22-Feb-2013 End : 04-Mar-2013 [...] days Quantity: 90 {Tablet} Refills: 3 Ordered:09-Sep-2008 aTvon DO Sangeetha AFast DO, Sangeetha A Start [...] Quantity: 30 {Tablet} Refills: 0 Ordered:19-May-2018 Long SENIOR CLINICAL CONSULTANTAmelia L Start : 12-May-2012 End : 19-May-2018 Discontinued Comments:This order discontinued per [facility]. ZOFRAN ODT, 4MG (Oral Tablet Dispersible) qd prn nausea (4 MG) End : 08-Aug-2015 Discontinued Comments:[facility] Allergies and Adverse Reactions Name [...] w/ Contrast Result: Comments: See Note; NOTES: [facility] Cardiovascular Services [address] [place] [address] Echo Complete W/ Contrast 09/06/18 1002 MR#: [id number] Acct: [id number] Name: IFEOMA DÍAZ Rep #: [id number] : 1965 53 From: Boone Ch MD Attending Dr: Sangeetha Irvin DO Status: REG CLI Ordering Dr: Sangeetha Irvin DO Date: 09/06/18 Location: [facility] Sex: F C Admitted: [...] Dictated: 09/06/18 1002 Date Transcribed: 09/06/18 1534 Endless Belt Finisher: Signed 04-Sep-2018 CTA Chest W/WO Contrast Result: Comments: See Note; NOTES: [facility] Imaging Services [address] [place] [address] CTA Chest W/WO Contrast MR#: [id number] Acct: [id number] Name: IFEOMA ASHRAF Rep #: : 1965 F 53 From: Ziggy Santos MD PCP: Sangeetha Irvin DO Status: REG CLI Study: CTA Chest W/WO Contrast Date of Exam: 09/04/18 Exam# [id number] Ordering Dr: Sangeetha Irvin DO STUDY: CTA [...] Service support , CC: Sangeetha Irvin DO Endless Belt Finisher: Signed 14-Jul-2018 Chest PA and Lateral Result: Comments: See Note; NOTES: [facility] Imaging Services [address] [place] [address] Chest PA and Lateral MR#: [id number] Acct: [id number] Name: IFEOMA ASHRAF Rep #: [id number] : 1965 F 53 From: Dimitris Valderrama DO PCP: Sangeetha Irvin DO Status: REG CLI Study: Chest PA and Lateral Date of Exam: 07/14/18 Exam# [id number] Ordering Dr: Oscar Todd [employer] STUDY: X-RAY CHEST REASON FOR EXAM: Female, [...] Dimitris Valderrama DO at 8:47 EDT Tel [phone], Service support , CC: NUNU Todd; Sangeetha Irvin DO Endless Belt Finisher: Signed 10-Jun-2018 Pacemaker Check Result: Comments: See Note; NOTES: [facility] [address] [place] [address] Pacemaker Check Date of Service: 06/09/18 0909 MR#: [id number] Acct: [id number] Name: IFEOMA ASHRAF Rep #: [id number] : 1965 From: Danica Pickering Age/Sex: 53/F Location: [facility] Status: Signed Billing Codes ICD Device Billing: ICD Dev Prog Eval, Single 06/09/18 0913 <Elec tronically signed by Danica Pickering > Date Danica Pickering 06/10/18 1406<Electronically signed by Boone Ch MD> Junior Signat ure: Date (if applicable) Boone Ch MD CC: 08-Jun-2018 Cardiology Visit Report Result: Comments: See Note; NOTES: [facility] [address] [place] [address] OFFICE VISIT Date of Service: 05/31/18 MR#: [id number] Acct: [id number] Name: IFEOMA ASHRAF Rep #: [id number] : 1965 Provider: NUNU Todd Age/Sex: 53/F Location: [facility] Status: Signed with Addenda ADDENDUM by NUNU [...] defibrillator (ICD) Z95.810 Generator change 11/13 @ [facility] LUPE Chapman Pacemaker check in [...] prior to saving. Follow Up 6 Months (ARMAMENT REPAIRER) 05/31/18 (GIUSEPPE) 06/01/18 0747 <Electronically signed by Oscar ANDRADE> Date ____ Oscar Todd cc: Sangeetha Irvin DO * Signed HPI HPI Details: FIEOMA ASHRAF, is a 53 F who presents to the office today for a cardiovascular outpatient foll ow-up. She has a history of non-ischemic cardiomyopathy with EF of 15% noted in February 2018, AICD, diabetes mellitus type 2, morbid obesity, history of diffuse B-cell lymphoma, pulmonary hypertension, stefani ral regurgitation and tricuspid regurgitation. She presented [facility] on March 08, 2018 after being found [...] 05/31/18 Pulse Rate 100 Intake Visit Reasons: [facility] to [facility] to [facility] to [place] Allergies amitriptyline Adverse Reaction (Severe, Verified 05/31/18 [...] rter-defibrillator (ICD) Z95.810 Generator change 11/13 @ [facility] LUPE Chapman Pacemaker check in [...] prior to saving. Follow Up 6 Months (ARMAMENT REPAIRER) 05/31/18 (GIUSEPPE) Coding Level of Care Code [...] Visit Report Result: Comments: See Note; NOTES: [facility] [address] [place] [address] [place] [address] OFFICE VISIT Date of Service: 06/05/18 1314 MR#: [id number] Acct: [id number] Name: TYLOR ASHRAF Dm Pulido Rep #: [id number] : 1965 From: Simeon Gresham MD Age/Sex: 53/F Location: [facility] Status: Signed Subjective - Date of Service Date of Service:: 06/05/18 - Chief Complaint Follow up DLBCL - His tory of Present Illness 53-year-old woman was diagnosed with non-Hodgkin's lymphoma, diffuse large B cell, stage IV of the uterine cervix with GANG SUPERVISOR/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 She [...] stem cell transplant in February 2007 at [facility] with complete remission. She is on [...] Chronic Code Visit Office Visits / Consults: 67446 OV L3 Est 1325 <Electronically signed by Simeon Gresham MD> Date Simeon Gresham MD Cosigner Signature: Date (if applicable) CC: 26-May-2018 Venous Duplex Upper Extremity Result: Comments: See Note; NOTES: [facility] Cardiovascular Services [address] [place] [address] Venous Duplex US, Unilateral 05/25/18 0903 MR#: [id number] Acct: [id number] Name: IFEOMA SILVA Rep #: [id number] : 1965 53 From: Juanjo Russo MD Attending Dr: Sangeetha Irvin DO Status: REG CLI Ordering Dr: Sangeetha Irvin DO Date: 05/25/18 Location: [facility] Sex: F C Admitted: [...] Date Dictated: 05/25/18902 Date Transcribed: 05/26/18 163 Endless Belt Finisher: Signed 06-Apr-2018 Chest 1 View (Portable) Result: Comments: See Note; NOTES: [facility] Imaging Services [address] [place] [address] Chest 1 View (Portable) MR#: [id number] Acct: [id number] Name: IFEOMA ASHRAF Rep #: [id number] : 1965 F 53 From: [facility] PCP: Sangeetha Irvin DO Status: PRE ER Study: Chest 1 View (Portable) Date of Exam: 04/06/18 Exam# [id number] Ordering Dr: Dejuan Bacon MD STUDY: X-RAY [...] , CC: Sangeetha Irvin DO; Dejuan Bacon Endless Belt Finisher: Signed 05-Apr-2018 Brain/Head without Contrast Result: Comments: See Note; NOTES: [facility] Imaging Services [address] [place] [address] Brain/Head without Contrast MR#: [id number] Acct: [id number] Name: IFEOAM ASHRAF Rep # : [id number] : 1965 F 53 From: Levy Lucas DO PCP: Sangeetha Irvin DO Status: REG CLI Study: Brain/Head without Contrast Date of Exam: 04/05/18 Exam# [id number] Ordering Dr: Oscar Bartlett MD STUDY : [...] 14:06 EDT Tel , Service support 1- [phone], N.B. : The above information has been verbally conveyed by Levy Lucas DO to connected , Covering Physician, on 04/05/2018 14:06:03 (ET). CC: Sangeetha Irvin DO; Oscar Bartlett MD Endless Belt Finisher: Signed 05-Apr-2018 Brain/Head without Contrast Result: Comments: See Note; NOTES: [facility] Imaging Services [address] [place] [address] Brain/Head without Contrast MR#: [id number] Acct: [id number] Name: IFEOMA ASHRAF Rep # : [id number] : 1965 F 53 From: Levy Lucas DO PCP: Sangeetha Irvin DO Status: REG CLI Study: Brain/Head without Contrast Date of Exam: 04/05/18 Exam# [id number] Ordering Dr: Oscar Bartlett MD STUDY : [...] has been v erbally conveyed by Levy Lcuas DO to connected , Covering Physician, on 04/05/2018 14:06:03 (ET). Electronically Signed: Levy Lucas DO at 14:06 EDT Tel , Service support 1- [phone], N.B. : The above information has been verbally conveyed by Levy Lucas DO to connected , Covering Physician, on 04/05/2018 14:06:03 (ET). CC: Sangeetha Irvin DO; Oscar Bartlett MD Endless Belt Finisher: Signed 31-Mar-2018 Cardiology Visit Report Result: Comments: See Note; NOTES: [facility] [address] [place] [address] OFFICE VISIT Date of Service: 03/31/18 MR#: [id number] Acct: [id number] Name: Iefoma Ashraf Rep #: [id number] : 1965 Provider: Boone Ch MD Age/Sex: 53/F [place] [facility] Status: Signed HPI HPI [...] She was eventually transferred to [facility]. 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 I would like to obtain a forensic chemist ry profile to be able to appropriately adjust any diuretics. At this juncture it may be prudent to add Lasix 40 mg a day to her current regimen. 2. Presence of implantable cardioverter-defibrillator (I CD) Z95.810 Generator change 11/13 @ [facility] Dr. Ahmadi Plan She does [...] months. 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) Coding Level of Care Code Off vis,est,level [...] Flow Screening Result: Comments: See Note; NOTES: [facility] Cardiovascular Services [address] [place] [address] 11/22/17 0803 MR#: [id number] Acct: [id number] Name: IFEOMA ASHRAF Rep #: [id number] [...] Date Dictated: 11/22/17 0803 Date Transcribed: 11/22/171517 Endless Belt Finisher: Signed 18-Nov-2017 Office Visit Report Result: Comments: See Note; NOTES: [place] [address] [place] [address] OFFICE VISIT Date of Service: 11/17/17 MR#: [id number] Acct: [id number] Patient: IFEOMA ASHRAF Rep #: [id number] : 1965 Provider: Danica Pickering Age/Sex: 52/F [...] n office Interview Reason: scheduled follow up Numerical Control Drill Press Operator: [employer] Name: Lan Mckeon VR Model: [id number] Serial #: [id number] Implant Date: 11/10/17 Year(s): 0 Implant Physician: [...] and No drainage Bibiana ds Lead #1 Numerical Control Drill Press Operator Lead 1: St. Jimmie Model Lead 1: 7121Q/58 Serial# Lead 1: [id number] Date Implanted Lead 1: 10/10/09 Position Lead [...] Operative Report Result: Comments: See Note; NOTES: [facility] Medical Records Department [address] [place] [address] Operative Report 11/10/17 1148 MR#: [id number] Acct: [id number] Name: SALOME ASHRAF Rep #: [id number] : 1965 52 From: Lior Ahmadi MD PCP: Sangeetha Irvin DO Status: REG [facility] [place] Location: [facility] Operative Report Date of Procedure: 11/10/17 Preoperative diagnosis is device at end of life for normal battery depletion. Postoperative diagnosis same as above. After informed consent and IV antibiotics the patient was brought to the [facility] and the ski n over [...] chart documents provided by the device company instruments sales representative procedure summary. 11/10/17 1150 <Electronically signed by Lior Ahmadi MD > Date Lior Ahmadi MD CC: Sangeetha Irvin DO; Lior Ahmadi MD Signed 03-Nov-2017 Office Visit Report Result: Comments: See Note; NOTES: [facility] [place] [address] OFFICE VISIT Date of Service: 11/03/17 MR#: [id number] Acct: [id number] Patient: IFEOMA ASHRAF Rep #: [id number] : 1965 Provider: Danica Pickering Age/Sex: 52/F Location: [facility] Status: Signed Comments Summary Comments: Written [...] in office Interview Reason: routine follow up Numerical Control Drill Press Operator: St. Jimmie Name: Current VR Model: 1211-36Q ICD Serial #: [id number] Implant Date: 10/10/09 Year(s): 8 Implant Physician: [...] Model Lead 1: 7121Q/58 Serial# Lead 1: [id number] Date Implanted Lead 1: 10/10/09 Position Lead [...] Visit Report Result: Comments: See Note; NOTES: [facility] [address] [place] [address] OFFICE VISIT Date of Service: 11/03/17 MR#: [id number] Acct: [id number] Name: IFEOMA ASHRAF Rep #: [id number] : 1965 Provider: Boone Ch MD Age/Sex: 52/F Location: [facility] Status: Signed HPI HPI Details: IFEOMA [...] 25 to 29 (25% per echo 03/11/2015) [facility] Medical History Type 2 diabetes mellitus [...] of automatic cardioverter/defibrillator (AICD) Z95.810 10/06/2009 @ [facility] Plan She is status post ICD [...] was also being followed up at the [facility]. She is also on spironolactone and sh [...] and Lateral Result: Comments: See Note; NOTES: [facility] Imaging Services [address] [place] [address] Chest PA and Lateral MR#: [id number] Acct: [id number] Name: IFEOMA ASHRAF Rep #: [id number] : 1965 F 52 From: Dimitris Valderrama DO PCP: Sangeetha Irvin DO Status: PRE [facility] Study: Chest PA and Lateral Date of Exam: 11/03/17 Exam# [id number] Ordering Dr: Boone Ch MD STUDY: X-RAY [...] Dimitris Valderrama DO at 18:21 EST Tel [phone], Se rvice support , CC: Boone Ch MD; Sangeetha Irvin DO Endless Belt Finisher: Signed 14-Oct-2017 Office Visit Report Result: Comments: See Note; NOTES: [facility] [place] [address] OFFICE VISIT Date of Service: 10/12/17 MR#: [id number] Acct: [id number] Patient: IFEOMA ASHRAF Rep #: [id number] : 1965 Provider: Danica Pickering Age/Sex: 52/F Location: [facility] Status: Signed Comments Summary Comments: Single Chamber ICD Evaluation: Interrogation shows No VT/VF episodes since . No Alerts noted. Left pectoral pocket/incision w/o s/s of infection or erosion. Pt offers no cardiac complaints. Presenting rhythm shows Sinus Tachycardia @ 105 bpm. Left pectoral pocket/incision w/o s/s of infection or erosion. TURKISH LINE ATTENDANT=0%. Battery longevity approx 2.9 mos. At device check in June device showed longevity of 14 mos. D/T longevity decreasing quickly pt scheduled for ICD generator el gilliam with Dr. Ahmadi on 11/10/17 @ [facility]. Lead impedances, sensing and pace/sense threshold remain stable. No parameter changes made. Counters cleared. Pt scheduled for o.v and teaching on 11/03/17 and ICD g enerator change on 11/10/17. Device Device Date Interviewed: 10/12/17 Follow- up Location: in office Interview Reason: routine follow up Numerical Control Drill Press Operator: St. Jimmie Name: Current VR Model: 1211-36Q ICD Sean l #: [id number] Implant Date: 10/10/09 Year(s): 8 Implant Physician: KARIN Patient Characteristics Patient Substrate: Nonischemic cardiomyopathy (dilated cardiomyopathy caused from Chemo drugs) Ejection fract ion %: 25 to 29 (02/2015) By: Echo Underlying rhythm: Sinus rhythm Pacemaker Dependent: No Device Characteristics Device: Single Chamber Type: Implantable defibrillator Remote Follow-Up: No Device Physi ramandeep Exam Yes Incision well healed Leads Lead #1 Numerical Control Drill Press Operator Lead 1: St. Jimmie Model Lead 1: 7121Q/58 Serial# Lead 1: [id number] Date Implanted Lead 1: 10/10/09 Position Lead [...] IV Contrast Result: Comments: See Note; NOTES: [facility] Imaging Services [address] [place] [address] Abdomen WITH IV Contrast MR#: [id number] Acct: [id number] Name: IFEOMA ASHRAF Rep #: [id number] : 1965 F 52 From: Carl Vincent MD PCP: Sangeetha Irvin DO Status: REG CLI Study: Abdomen WITH IV Contrast Date of Exam: 06/15/17 Exam# [id number] Ordering Dr: Analisa Conway MD STUDY: CT [...] CC: Analisa Conway MD; Sangeetha Irvin DO Endless Belt Finisher: Signed 15-Jun-2017 Spine Cervical without Contras Result: Comments: See Note; NOTES: [facility] Imaging Services [address] [place] [address] Spine Cervical without Contras MR#: [id number] Acct: [id number] Name: IFEOMA ASHRAF p #: [id number] : 1965 F 52 From: Zev Mandujano MD PCP: Sangeetha Irvin DO Status: REG CLI Study: Spine Cervical without Contras Date of Exam: 06/15/17 Exam# [id number] Ordering Dr: Analisa Conway MD STUDY: CT [...] techniques were used for this CT. [facility] 02/11/[facility]. FINDINGS: Normal craniovertebral junction. Normal anterior [...] CC: Analisa Conway MD; Sangeetha Irvin DO Endless Belt Finisher: Signed 10-Feb-2017 Spine Lumbar without Contrast Result: Comments: See Note; NOTES: [facility] Imaging Services [address] [place] [address] Verdana 4d Spine Lumbar without Contrast MR#: [id number] Acct: [id number] Name: MARISEL ASHRAF Rep #: [id number] : 1965 F 51 From: Brian Gill MD PCP: Fast DO,Sangeetha Status: REG CLI Study: Spine Lumbar without Contrast Date of Exam: 02/10/17 Exam# [id number] Ordering Dr: Analisa Carr i, MD STUDY: [...] CC: Analisa Conway MD; Sangeetha Irvin DO Endless Belt Finisher: Signed 20-Jan-2017 Liver Result: Comments: See Note; NOTES: [facility] Imaging Services [address] [place] [address] Verdana 4d Liver MR#: [id number] Acct: [id number] Name: IFEOMA ASHRAF Rep #: [id number] : 1965 F 51 From: Vincent Bui DO PCP: Sangeetha Irvin DO Status: REG CLI Study: Liver Date of Exam: 01/20/17 Exam# [id number] Ordering Dr: Sangeetha Irvin DO STUDY: ABDOMINAL [...] Vincent Bui DO at 23:43 EDT Tel [phone], Service support , CC: Sangeetha Irvin DO Endless Belt Finisher: Signed 20-Jan-2017 Thyroid Result: Comments: See Note; NOTES: [facility] Imaging Services [address] [place] [address] Verdana 4d Thyroid MR#: [id number] Acct: [id number] Name: IFEOMA ASHRAF Rep #: [id number] : 1965 F 51 From: Jin Rolon PCP: Sangeetha Irvin DO Status: REG CLI Study: Thyroid Date of Exam: 01/20/17 Exam# [id number] Ordering Dr: Sangeetha Irvin DO STUDY: THYROID [...] Service support , CC: Sangeetha Irvin DO Endless Belt Finisher: Signed 17-Nov-2016 Dexa Bone Density Study (HP) Result: Comments: See Note; NOTES: [facility] Imaging Services [address] [place] [address] Verdana 4d Dexa Bone Density Study (HP) MR#: [id number] Acct: [id number] Name: COL HARPAL ASHRAF Rep #: [id number] : 1965 F 51 From: Prashant Delgadillo MD PCP: Sangeetha Irvin DO Status: REG CLI Study: Dexa Bone Density Study (HP) Date of Exam: 11/17/16 Exam# [id number] Ordering Dr: Sangeetha Irvin DO STUDY: DUAL [...] Prashant Delgadillo MD at 10:52 EST Tel [phone], Service support [phone], CC: Sangeetha Irvin DO Endless Belt Finisher: Signed 17-Nov-2016 SCREENING MAMM (CAD), BILAT Result: Comments: See Note; NOTES: [facility] Imaging Services [address] [place] [address] Verdana 4d SCREENING MAMM (CAD), BILAT MR#: [id number] Acct: [id number] Name: SALOME ASHRAF Rep #: [id number] : 1965 F 51 From: Prashant Delgadillo MD PCP: Sangeetha Irvin DO Status: REG CLI Study: SCREENING MAMM (CAD), BILAT Date of Exam: 11/17/16 Exam# [id number] Ordering Dr: Gary Irvin DO MAMMOGRAPHY - [...] biopsy of a clinically suspiciou s abnormality. [id number] Electronically Signed: Prashant Delgadillo MD at 12:55 EST Tel [phone], Service support [phone], CC: Sangeetha Irvin DO Endless Belt Finisher: Signed 17-Nov-2016 SCREENING MAMM (CAD), BILAT Result: Comments: See Note; NOTES: [facility] Imaging Services [address] [place] [address] Verdana 4d SCREENING MAMM (CAD), BILAT MR#: [id number] Acct: [id number] Name: SALOME ASHRAF Rep #: [id number] : 1965 F 51 From: Prashant Delgadillo MD PCP: Sangeetha Irvin DO Status: REG CLI Study: SCREENING MAMM (CAD), BILAT Date of Exam: 11/17/16 Exam# [id number] Ordering Dr: Gary Irvin DO ADDENDUM by [...] delay biopsy of a clinically suspicious abnormality. [id number] Electronically Signed: Prashant Delgadillo MD at 13:07 EST Tel [phone], Service support [phone], 11/17/16 1315 Date cc: Sangeetha Irvin DO [...] was performed. COMPARISON: Comparison is made with [facility] study dated August 14, 2015 and [...] delay biopsy of a clinically suspicious abnormality. [id number] Electronically Signed: Prashant Delgadillo MD at 12:55 EST Tel [phone], Ser vice support [phone], CC: Sangeetha Irvin DO Endless Belt Finisher: Signed 19-Dec-2015 Liver Result: Comments: See Note; NOTES: [facility] Imaging Services [address] [place] [address] Verdana 4d Liver MR#: [id number] Acct: [id number] Name: IFEOMA ASHRAF Rep #: [id number] : 1965 F 50 From: Ziggy Santos MD PCP: Sangeetha Irvin DO Status: REG CLI Study: Liver Date of Exam: 12/19/15 Exam# [id number] Ordering Dr: Sangeetha Irvin DO STUDY: ABDOMINAL [...] at 10:55 EDT Tel , Service support [phone], CC: Sangeetha Irvin DO Endless Belt Finisher: Signed 19-Dec-2015 Thyroid Result: Comments: See Note; NOTES: [facility] Imaging Services [address] [place] [address] Verdana 4d Thyroid MR#: [id number] Acct: [id number] Name: MARIOWAQASIFEOMA Abreu ep #: [id number] : 1965 F 50 From: Ziggy Santos MD PCP: Sangeetha Irvin DO Status: REG CLI Study: Thyroid Date of Exam: 12/19/15 Exam# [id number] Ordering Dr: Sangeetha Irvin DO STUDY: THYROID [...] at 10:56 EDT Tel , Service support [phone], CC: Sangeetha Irvin DO Endless Belt Finisher: Signed 14-Aug-2015 Bilat Scrn Digital AND CAD Result: Comments: See Note; NOTES: [facility] Imaging Services [address] [place] [address] Verdana 4d Bilat Scrn Digital AND CAD MR#: [id number] Acct: [id number] Name: IFEOMA ASHRAF Rep #: [id number] : 1965 F 50 From: Prashant Delgadillo MD PCP: Sangeetha Irvin DO Status: REG CLI Study: Bilat Scrn Digital AND CAD Date of Exam: 08/14/15 Exam# [id number] Order ing Dr: Sangeetha Irvin DO MAMMOGRAPHY [...] Prashant Delgadillo MD at 10:49 EST Tel [phone], Service support [phone], CC: Sangeetha Irvin DO Endless Belt Finisher: Signed 10-Mar-2015 Emergency Department Summary Result: Comments: See Note; NOTES: [facility] Medical Records Department [address] [place] [address] Emergency Department Summary MR#: [id number] Acct: [id number] Name: IFEOMA RASMUSSEN Rep #: [id number] : 1965 49 From: Mayito Roldan DO PCP: Sangeetha Irvin DO Status: [facility] ER DATE OF SERVICE: 02/28/2015 Addendum [...] way. Mayito Roldan DO T: NTS JOB: [id number] 03/10/15 2329 <Electronically signed by Mayito Roldan DO> Date Mayito Roldan DO CC: Sangeetha Irvin DO Date Dictated: 02/28/15824 Date Transcribed: 02/28/15824 Endless Belt Finisher: Signed 02-Mar-2015 Emergency Department Summary Result: Comments: See Note; NOTES: [facility] Medical Records Department [address] [place] [address] Emergency Department Summary MR#: [id number] Acct: [id number] Name: IFEOMA RASMUSSEN Rep #: [id number] : 1965 49 From: Alejandro Lopez DO PCP: Sangeetha Irvin DO Status: [facility] ER DATE OF SERVICE: 02/28/2015 CHIEF [...] The patient has plans to go to [facility] on General. I will give her local surgeon's name if she wants to speak with them or she can certainly also speak with Dr. Irvin. CLINICAL IMPRESSION: Biliary colic. Alejandro Lopez DO T: ROCK JOB: [id number] 03/02/15 0743 <Electronically signed by Alejandro Lopez DO> Date Alejandro Lopez DO CC: Sangeetha Irvin DO Date Dictated: 718 Date Transcribed: 02/28/15718 Endless Belt Finisher: Signed 28-Feb-2015 Discharge Instruction Result: Comments: See Note; NOTES: [facility] Medical Records Department [address] [place] [address] Discharge Instruction 02/28/15 0639 MR#: [id number] Acct: [id number] Name: IFEOMA ASHRAF Rep #: [id number] : 1965 49 From: Alejandro Lopez DO [...] any unexpected problems, contact your doctor. Call [facility] ([phone]) or report to the closest Em ergency Room. Call 911 if necessary. 02/28/15 0640 <Electronically signed by Alejandro Lopez DO> Date Alejandro Lopez DO Cosign er Signature (If Indicated): Date CC: Sangeetha Irvin DO 28-Feb-2015 Gallbladder Result: Comments: See Note; NOTES: [facility] Imaging Services [address] [place] [address] Ultrasound Report MR#: [id number] Acct: [id number] Name: IFEOMA ASHRAF Rep #: [id number] : 1965 F 49 From: Prashant Delgadillo MD PCP: Sangeetha Irvin DO Status: REG ER Study: Gallbladder Date of Exam: 02/28/15 Exam# [id number] Ordering Dr: Alejandro Lopez DO STUDY: ABDOM [...] Prashant Delgadillo MD at 8:15 EDT Tel [phone], Service support [phone], CC: Alejandro Lopez DO; Sangeetha Irvin DO Endless Belt Finisher: Signed 11-Feb-2015 Spine Cervical without Contras Result: Comments: See Note; NOTES: [facility] Imaging Services [address] [place] [address] CAT Scan Report MR#: [id number] Acct: [id number] Name: IFEOMA ASHRAF Rep #: [id number] : 1965 F 49 From: Prashant Delgadillo MD PCP: Sangeetha Irvin DO Status: REG CLI Study: Spine Cervical without Contras Date of Exam: 02/11/15 Exam# [id number] Ordering Dr: Analisa Conway MD STUDY: CT [...] Prashant Delgadillo MD at 9:49 EDT Tel [phone], Service support [phone], CC: Analisa Conway MD; Sangeetha Irvin DO Endless Belt Finisher: Signed 18-Jul-2014 Bilat Scrn Digital & CAD Result: Comments: See Note; NOTES: [facility] Imaging Services [address] [place] [address] Breast Imaging Report MR#: [id number] Acct: [id number] Name: IFEOMA ASHRAF Rep # : [id number] : 1965 F 49 From: Prashant Delgadillo MD PCP: Sangeetha Irvin DO Status: REG CLI Exam# [id number] Ordering Dr: Sangeetha Irvin DO MAMMOGRAPHY - [...] Prashant Delgadillo MD at 8:36 EDT Tel [phone], Servi ce support [phone], CC: Sangeetha Irvin DO Endless Belt Finisher: Signed 18-Jul-2014 Liver Result: Comments: See Note; NOTES: [facility] Imaging Services [address] [place] [address] Ultrasound Report MR#: [id number] Acct: [id number] Name: IFEOMA ASHRAF Rep #: : 1965 F 49 From: Prashant Delgadillo MD PCP: Sangeetha Irvin DO Status: REG CLI Study: Liver Date of Exam: 07/18/14 Exam# [id number] Ordering Dr: Sangeetha Irvin DO STUDY: ABDOMINAL [...] Prashant Delgadillo MD at 9:34 EDT Tel [phone], Service support [phone], CC: Sangeetha Irvin DO Endless Belt Finisher: Signed 18-Jul-2014 Thyroid Result: Comments: See Note; NOTES: [facility] Imaging Services [address] [place] [address] Ultrasound Report MR#: [id number] Acct: [id number] Name: IFEOMA ASHRAF Rep #: [id number] : 1965 F 49 From: Prashant Delgadillo MD PCP: Sangeetha Irvni DO Status: REG CLI Study: Thyroid Date of Exam: 07/18/14 Exam# [id number] Ordering Dr: Sangeetha Irvin DO STUDY: THYROID [...] Delgadillo MD at 8:41 EDT T el [phone], Service support [phone], CC: Sangeetha Irvin DO Endless Belt Finisher: Signed 05-Feb-2014 Brain/Head W/WO Contrast Result: Comments: See Note; NOTES: [facility] Imaging Services [address] [place] [address] CAT Scan Report MR#: [id number] Acct: [id number] Name: IFEOMA ASHRAF Rep #: [id number] : 1965 F 48 From: Prashant Delgadillo MD PCP: Sangeetha Irvin DO Status: REG CLI Study: Brain/Head W/WO Contrast Date of Exam: 02/05/14 Exam# [id number] Ordering Dr: Sangeetha Irvin DO STUD Y: [...] Prashant Delgadillo MD at 9:19 EDT Tel [phone], Service support [phone], CC: Sangeetha Irvin DO Endless Belt Finisher: Signed Immunization Name Dates Details Influenza (3 years and up) on: 10-Jul-2008 Comments: injection given in left deltoid, pt tolerated welllot # [id number] Influenza (3 years and up) on: 09-Jul-2009 Comments: Lot #[id number]-right deltoidDose0.5mlgiven by Juventino Nye LPN Family History [...] kg/m2 Body Surface Area Calculated 2.02 m2 61-Nyf-282081:59 Temperature 97.9 f Comments: Method: Temporal Pulse [...] kg/m2 Body Surface Area Calculated 2.02 m2 54-Vso-041873:08 Temperature 97.3 f Comments: Method: Temporal Pulse [...] NATRIURETIC PEPTIDE Comments: [facility] Xytryotcka3438 [facility] [address]. [place], [place], [address] B-TYPE JACKIE PEP 819.3 pg/mL (Abnormal) Range: 0-100 :59 CBC W/Diff, Automated Comments: [facility] [address]htvqsknj8739 [facility] [address]. [place], [place], [address] Absolute Lymph 1.08 {X10_3/ul} (Normal) Range: 0.83-4.51 [...] 4.2-5.4 WBC 7.5 K/mm3 (Normal) Range: 4.4-11.0 45-Nfp-295138:59 Comprehensive Metabolic Profil Comments: 'TROP' Serial specimen #1, #2, #3, or #4: [address] [place] [address] [address] [place], [place], [address] GAP 8 (Normal) Range: 5-15 CO2 29.0 [...] A.D.A. criteria.Please note revised GLUCOSE reference range ktpgwilkm08/02/2018. 15-Eia-652799:59 CPK Total, Creatine Kinase Comments: 'TROP' Serial specimen #1, #2, #3, or #4: [address] [place] [address] [place], [address] CPK TOTAL 30 U/L (Normal) Range: 26-192 80-Bpl-757366:59 D-Dimer Quantitative (DVT/PE) Comments: [facility] [address] [place], [address] D-DIMER QUANT 1.44 {FEU/ug/m} (Abnormal) Range: 0.27-0.49 Comments: CRITICAL VALUE VERIFIED. CALLED TO TANQJKAR82/10/18 1440 Francois Quinn.RESULTS READ BACK BY SAME .D-Dimer ELEVATED (>0.49): Additional studies and clinicalassessments are indicated to conclude di agnosis of:Deep Vein Thrombosis (DVT) or Pulmonary Embolism (PE) 62-Bcz-450672:59 Troponin-I Comments: 'TROP' Serial specimen #1, #2, #3, or #4: [address] [place] [address] [place], [address] TROPONIN-I 0.030 ng/mL (Normal) Comments: TROPONIN-I EXPECTED VALUES <0.045 Negative 0.045 - 0.590 Consistent with Cardiac Damage > OR = 0.600 Critical Value Not every elevated troponin is indicative of OK. T hesevalues should be used with clinical judgement in examiningthe patient's clinical picture for diagnosis. To establisha diagnosis of OK versus myocardial injury, there must be ademonstrated rise and/ or fall in the troponin values, inaddition to ischemic symptoms, EKG changes, new regionalwall motion abnormality, and/or angiographical evidence. PLEASE NOTE: REFERENCE RANGES EDITED 02/06/1829-Aug-20182-Eac-359403:44 ANCA Comments: Is Patient Fasting? [facility] (refer to report for specific site)refer to report for address and phone number Atypical pANCA <1:20 {titer} (Normal) Comments: The atypical pANCA pattern has been observed in asignificant percentage of patients with ulcerative colitis,primary sclerosing cholangitis and autoimmune hepatitis.Performed at: [address] [id number] Director: Omar Hood PhD, Phone: [phone] PERINUCLEAR Ab <1:20 {titer} (Normal) Comments: The presence of positive fluorescence exhibiting P-ANCA orC-ANCA patterns alone is not specific for the diagnosis ofWegener's Granulomatosis (WG) or microscopic polyangiitis.Decisions about treatment sh ould not be based solely onANCA IFA results. The International ANCA Group Consensusrecommends follow up testing of positive sera with both NV-3 and MPO- ANCA enzyme immunoassays. As many as 5% serumsamp les are positive only by EIA. Ref. AM J Clin Rkwtxm9826;111:507-513. CYTOPLASMIC Ab <1:20 {titer} (Normal) 7-Jug-459818:44 ANTINUCLEAR ANTIBODIES DIRECT Comments: [facility] (refer to report for specific site)refer to report for address and phone number LASHA-DIRECT Negative (Normal) Comments: Performed at: [facility] [id number] Director: Omar Hood PhD, Phone: [phone] 1-Uxv-402785:44 CPK Total, Creatine Kinase Comments: [facility] [address] [place], [place], [address] CPK TOTAL 33 U/L (Normal) Range: 26-192 0-Qij-622736:44 Hemoglobin A1c Comments: [facility] [address] [place], [place], [phone] HGB A1C 10.6 % (Abnormal) Range: 4.2-6.3 5-Aeh-108721:44 PRANEETH AND PE, Random UR Comments: Is Patient Fasting? [facility] (refer to report for specific site)refer to report for address and phone number NOTE Comment (Normal) Comments: Protein electrophoresis scan will follow via computer,mail, or fringe knotter delivery. PRANEETH RESULT,U Comment (Normal) Comments: No monoclonality detected. M-SPIKE,UR% Not Observed % (Normal) GAMMA GLOB,U 5.5 % (Normal) BETA GLOB,U 14.2 % (Normal) EBXXB-8-INCW,U 10.8 % (Normal) VQZJC-0-YYVP,U 7.6 % (Normal) ALBUMIN,U 62.0 % (Normal) PROTEIN,UR 27.8 mg/dL (Normal) 1-Rfv-832977:44 PRANEETH + Protein Elect, Serum Comments: Is Patient Fasting? [facility] (refer to report for specific site)refer to report for address and phone number NOTE: Comment (Normal) Comments: Protein electrophoresis scan will follow via computer,mail, or fringe knotter delivery. PRANEETH RESULT,S Comment (Normal) Comments: No monoclonality detected. A/G RATIO 1.2 (Normal) Range: 0.7-1.7 GLOBULIN, TOTAL 2.9 g/dL (Normal) Range: 2.2-3.9 M-SPIKE g/dL (Normal) Comments: Not Observed GAMMA GLOBULIN 0.6 g/dL (Normal) Range: 0.4-1.8 BETA GLOBULIN 1.1 g/dL (Normal) Range: 0.7-1.3 EIWKQ-4-DYPZ 0.9 g/dL (Normal) Range: 0.4-1.0 OZWLC-2-ECOI 0.3 g/dL (Normal) Range: 0.0-0.4 ALBUMIN 3.4 g/dL (Normal) Range: 2.9-4.4 IMMUNOGL M 103 mg/dL (Normal) Range: 26-217 IMMUNO A 69 mg/dL (Abnormal) Range: 87-352 IMMUNO G 538 mg/dL (Abnormal) Range: 700-1600 PROTEIN,TOTAL 6.3 g/dL (Normal) Range: 6.0-8.5 4-Zpc-740583:44 Rheumatoid Factor Comments: [facility] [address] [place], [place], [address] RHEUMATOID FAC < 10.0 {IU/mL} (Normal) 1-Tkd-526373:44 Sjogren's Antibodies A/B Comments: [facility] (refer to report for specific site)refer to report for address and phone number Anti-SS-B < 0.2 {AI} (Normal) Range: 0.0-0.9 Anti-SS-A < 0.2 {AI} (Normal) Range: 0.0-0.9 3-Mog-706363:44 Thyroid Stim Hormone (TSH) Comments: [facility] [address] [place], [address] TSH 2.71 {uIU/mL} (Normal) Range: 0.358-3.74 0-Lqd-124506:44 Vitamin B12 1303 pg/mL (Abnormal) Comments: [facility] [address] [place], [address] Range: 211-911 :44 Vitamin D,25 Hydroxy Comments: [facility] [address] [place], [address] Vitamin D 25-OH 62.4 ng/mL (Normal) Range: 29.95-100.01 Comments: Vitamin D 25(OH) Status Range Deficiency <20 ng/mL (50nmol/L) Insuffciency 20 - 30 ng/mL (50 - 75 nmol/L) Sufficiency 30 - 100 ng/mL (75 - 250 nmol/L) Toxicity >100 ng/mL (>250 nmol/L) 0-Fsj-169025:06 Basic Metabolic Profile (BMP) Comments: PLEASE FAX TO DR. CANTU [phone] [address] [place], [address] GAP 12 (Normal) Range: 5-15 CO2 26.0 [...] A.D.A. criteria.Please note revised GLUCOSE reference range lfjesypdf28/02/2018. 25-Agh-42907:22 CBC W/Diff, Automated Comments: BMP TO DULCE TIMMONS.CBCD, TSH, B12 TO DR. SANGEETHA IRVIN.[facility] [address] [place], [address] Absolute Lymph 1.16 {X10_3/ul} (Normal) Range: 0.83-4.51 [...] 4.2-5.4 WBC 8.0 K/mm3 (Normal) Range: 4.4-11.0 01-Vxr-45826:22 Vitamin B12 659 pg/mL (Normal) Comments: BMP TO DULCE [facility].CBCD, TSH, B12 TO DR. SANGEETHA IRVIN.[facility] [address] [place], [address] Range: 211-911 09-Sfj-54192:20 Basic Metabolic Profile (BMP) Comments: BMP TO DULCE [facility].CBCD, TSH, B12 TO DR. SANGEETHA IRVIN.[facility] [address] [place], [place], [address] GAP 9 (Normal) Range: 5-15 CO2 27.0 [...] A.D.A. criteria.Please note revised GLUCOSE reference range nbidvjnwa99/02/2018. 74-Ubn-91933:20 Thyroid Stim Hormone (TSH) Comments: BMP TO DULCE [facility].CBCD, TSH, B12 TO DR. SANGEETHA IRVIN.[facility] [address] [place], [place], [address] TSH 4.09 {uIU/mL} (Abnormal) Range: 0.358-3.74 65-Jet-307927:23 Basic Metabolic Profile (BMP) Comments: [facility] [address] [place], [address] GAP 7 (Normal) Range: 5-15 CO2 30.0 [...] A.D.A. criteria.Please note revised GLUCOSE reference range dumcnvbql00/02/2018. 76-Lqo-842052:23 BNP,B-Type NATRIURETIC PEPTIDE Comments: [facility] [address] [place], [address] B-TYPE JACKIE PEP 892.7 pg/mL (Abnormal) Range: 0-100 27-Efi-341027:23 CBC W/Diff, Automated Comments: [facility] [address] [place], [address] Absolute Lymph 1.23 {X10_3/ul} (Normal) Range: 0.83-4.51 [...] 4.2-5.4 WBC 7.2 K/mm3 (Normal) Range: 4.4-11.0 63-Xen-355914:41 CBC W/Diff, Automated Comments: Reason for Laboratory Test .[facility] [address] [facility]. [place], [place], [address] Absolute Lymph 0.85 {X10_3/ul} (Normal) Range: 0.83-4.51 [...] 4.2-5.4 WBC 5.7 K/mm3 (Normal) Range: 4.4-11.0 92-Crq-475059:41 Comprehensive Metabolic Profil Comments: Reason for Laboratory Test .Serial Specimen #1, #2 or #3? 1[facility] [address] [place], [address] GAP 8 (Normal) Range: 5-15 CO2 28.0 [...] A.D.A. criteria.Please note revised GLUCOSE reference range bzuftinwv01/02/2018. 59-Oss-527343:41 LDH 224 U/L (Normal) Comments: Reason for Laboratory Test .Serial Specimen #1, #2 or #3? 1[facility] [address] [place], [place], [address] Range: 84-246 8-Rcd-809593:41 URINE GENESIS CULTURE-IDENTIFICATN Comments: add to urine in lab; PATIENT NOT FASTINGPERFORMED BY: [facility] [address] [facility] [id number] Information: SRC:JUAN ([id number]) Result 1 ENTEAE (Abnormal) Comments: Enterobacter aerogenes1,000 [...] S Urine Final report Culture,Comprehensi (Abnormal) ve 86-Rgs-99511:46 AFP, Tumor Marker Comments: Is Patient ? [facility] (refer to report for specific site)refer to report for address and phone number AFP TUMOR 2253 10.0 ng/mL (Abnormal) Range: 0.0-8.3 Comments: Khanh ECLIA methodologyPerformed at: CB - [facility] [address] [place], [place] [id number] Director: Omar Hood PhD, Phone: [phone] CBC W/Diff, Automated Comments: [facility] [address] [place], [place], [address] Absolute Lymph 0.95 {X10_3/ul} (Normal) Range: 0.83-4.51 [...] BLOOD FROM 05-25-18 G2 5 [facility] [address] [place], [address] GAP 9 (Normal) Range: 5-15 CO2 28.0 [...] A.D.A. criteria.Please note revised GLUCOSE reference range kvyikgdcd66/02/2018. :46 Digoxin Level Comments: [facility] [address] [place], [address] DIG 0.71 ng/mL (Abnormal) Range: 0.80-2.00 :46 Free T3 Comments: PLEASE ADD T3F T4F TO BLOOD FROM 05-25-18G2 [address] [place] [address] [address] [place], [place], [address] FREE T3 3.2 pg/mL (Normal) Range: 2.18-3.98 :46 Hemoglobin A1c Comments: [facility] [address]ta[address] [place], [place], [address] HGB A1C 5.4 % (Normal) Range: 4.2-6.3 :46 Lipid Profile Comments: PLEASE ADD T3F T4F TO BLOOD FROM 05-25-18G2 [address] [place] [address] [address] [place], [place], [address] VLDL 22 mg/dL (Normal) Range: 5-40 LDL [...] Ratio,Random UR Comments: [facility] [address] [place], [place], [address] MALB:CREAT 7.8 {mg/g_CRE} (Normal) MICROALBUMIN,UR 10.9 mg/L (Normal) UR CREAT 139.00 mg/dL (Normal) :46 T4 Free Direct Comments: PLEASE ADD T3F T4F TO BLOOD FROM 05-25-18G2 [address] [place] [address] Bclojpjafe6[address] [place], [address] T4 FREE DIRECT 1.11 ng/dL (Normal) Range: 0.76-1.46 :46 Thyroid Stim Hormone (TSH) Comments: PLEASE ADD T3F T4F TO BLOOD FROM 05-25- THG2 5 [facility] [address] [place], [address] TSH 0.31 {uIU/mL} (Abnormal) Range: 0.358-3.74 :46 Urinalysis, Complete Comments: How was Urine Obtained? [facility] [address]rhjoyvw38[address] [place], [address] MUCUS, URINE 0 SEEN [...] pg/mL (Normal) Comments: [facility] Txrbticbbg0047 [place], [address] Range: 211-911 :46 Vitamin D,25 Hydroxy Comments: [facility] Qfqeuwsknf1747 [place], [address] Vitamin D 25-OH 64.5 ng/mL (Normal) Range: 29.95-100.01 Comments: Vitamin D 25(OH) Status Range Deficiency <20 ng/mL (50nmol/L) Insuffciency 20 - 30 ng/mL (50 - 75 nmol/L) Sufficiency 30 - 100 ng/mL (75 - 250 nmol/L) Toxicity >100 ng/mL (>250 nmol/L) 11-Luw-293066:52 Urinalysis, Complete Comments: Order Date: 04/06/18Has pt arrived? YHow was Urine Obtained? [facility] [address]pplrem[address] [place], [place], [address] HYALINE CAST 5-10 SEEN {/lpf} (Normal) Range: [...] (Normal) CLARITY Cloudy (Normal) COLOR Yellow (Normal) 77-Qix-592393:30 CBC W/Diff, Automated Comments: [facility] [address]bx[address] [place], [address] OVALOCYTE RARE (Normal) MACROCYTE 1+ [...] 4.2-5.4 WBC 9.1 K/mm3 (Normal) Range: 4.4-11.0 21-Wzp-132969:30 Comprehensive Metabolic Profil Comments: [facility] [address] [place], [place], [address] GAP 12 (Normal) Range: 5-15 CO2 30.0 [...] Comments: Please note revised GLUCOSE reference range coiygsdmd72/02/2018. 97-Tib-236153:30 Lactic Acid Comments: Yes/No query for Sepsis Lactate Rule [facility] [address] [place], [place], [address] LACTIC ACID 6.7 mmol/L (Abnormal) Range: 0.4-2.0 Comments: Critical Result(s) Called Lisa RIVERA at: 20:23: by: BRITTANY TORRES 19-Oeo-900838:30 Partial Thromboplast Time Comments: [facility] [address] [place], [place], [address] PTT 41.3 s (Abnormal) Range: 24.1-36.2 17-Iul-810918:30 Prothrombin Time w/INR Comments: [facility] [address]ixjd[address] [place], [place], [address] INR 2.3 (Normal) PROTIME 25.6 s (Abnormal) Range: 11.7-14.9 44-Hxy-119778:30 Troponin-I Comments: [facility] [address]ib[address] [place], [place], [address] TROPONIN-I 0.046 ng/mL (Abnormal) Comments: TROPONIN-I EXPECTED VALUES <0.045 Negative 0.045 - 0.590 Consistent with Cardiac Damage > OR = 0.600 Critical Value Not every elevated troponin is indicative of OK. T hesevalues should be used with clinical judgement in examiningthe patient's clinical picture for diagnosis. To establisha diagnosis of [place] versus myocardial injury, there must be ademonstrated rise and/ or fall in the troponin values, inaddition to ischemic symptoms, EKG changes, new regionalwall motion abnormality, and/or angiographical evidence. PLEASE NOTE: REFERENCE RANGES EDITED 02/06/1805-Apr-201860-Tul-322432:08 Ammonia Comments: [facility] [address] [place], [place], [address] AMMONIA 20.0 umol/L (Normal) Range: 11-32 66-Wut-879639:08 CBC-Complete Blood Cnt No Diff Comments: [facility] [address] [place], [place], [address] MPV 10.6 fL (Normal) Range: 6.2-12.0 PLT [...] 4.2-5.4 WBC 6.6 K/mm3 (Normal) Range: 4.4-11.0 76-Jeo-702754:08 Comprehensive Metabolic Profil Comments: [facility] [address] [place], [place], [address] GAP 9 (Normal) Range: 5-15 CO2 35.0 [...] Comments: Please note revised GLUCOSE reference range eoaccrjxp19/02/2018. 29-Dep-903290:08 Differential Comment Comments: [facility] [address] [place], [address] SMEAR COMMENT COMMENT (Normal) Comments: SLIDE SCANNED - 1+ ANISO NOTED. 15-Gsi-58094:55 Urinalysis, Complete Comments: How was Urine Obtained? [facility] [address]zklfr[address] [place], [address] AMORPHOUS 2+ (Normal) HYALINE CAST [...] (Normal) :55 Urine Drug Screen (VISTA) Comments: [facility] [address] [place], [address] TO BE CONFIRMED (Normal) Comments: [...] USE TESTMNEMONIC: UTCA :59 Bedside Glucose Comments: [facility] LaboratoryPoint of [address] [place] [address] BEDSIDE GLU 169 mg/dL (Abnormal) Range: 70-110 Comments: MANAGEMENT OF PATIENT CARE PER NURSING PROTOCOL :35 Basic Metabolic Profile (BMP) Comments: [facility] [address]pgu[address] [place], [place], [address] GAP 16 (Abnormal) Range: 5-15 CO2 15.0 mmol/L (Abnormal) Range: 21.0-32.0 CL 104 mmol/L (Normal) Range: 98-107 K 6.2 mmol/L (Abnormal) Range: 3.5-5.1 Comments: Critical Result(s) Called at: 01:06:28 03/08/2018 by:ANSLEY STANFORD,DIGITAL SALES ASSISTANT NA 135 mmol/L (Abnormal) Range: 136-145 [...] A.D.A. criteria.Please note revised GLUCOSE reference range yztscvdab51/02/2018. 89-Nmd-601778:59 Acetaminophen (Tylenol) Level Comments: [facility] [address] [place], [place], [address] ACETAMINOPHEN 4.9 ug/mL (Abnormal) Range: 10.0-30.0 Comments: Slight Icterus, Result may be falsely decreased. 89-Fgm-495115:59 Acetone Serum Comments: [facility] [address] [place], [address] ACETONE SERUM NEGATIVE (Normal) 60-Dwz-009304:59 Alcohol, Blood (Medical)-Serum Comments: [facility] [address] [place], [address] SERUM ETOH 8.0 mg/dL (Normal) Comments: The serum:whole blood ethanol ratio is approximately 1.14and varies slightly with hematocrit.Medical Alcohol reference interval and critical value innon-tolerant individuals; 50 - 100 Impairment 100 Intoxication 100 - 250 Severe Poisoning 250 - 400 Deep/possible fatal coma 51-Rjk-497223:59 Digoxin Level Comments: [facility] [address]fp[address] [place], [address] DIG 0.32 ng/mL (Abnormal) Range: 0.80-2.00 95-Gqk-174068:59 Lactic Acid Comments: Yes/No query for Sepsis Lactate Rule [facility]WT[facility] [address]alyase[address] [place], [address] LACTIC ACID 12.4 mmol/L (Abnormal) Range: 0.4-2.0 Comments: Critical Result(s) Called at: 00:52:58 03/08/2018 by:ANSLEY OWENSDIGITAL SALES ASSISTANT 24-Xnr-482776:59 Partial Thromboplast Time Comments: [place] [address] [place], [address] PTT 33.7 s (Normal) Range: 24.1-36.2 44-Cla-581356:59 Prothrombin Time w/INR Comments: [place] [address] [place], [address] INR 2.4 (Normal) PROTIME 26.4 s (Abnormal) Range: 11.7-14.9 :59 Salicylate Comments: [place] [address] [place], [address] SALICYLATE < 1.7 mg/dL (Abnormal) Range: 2.8-20.0 Comments: Slight Icterus, Result may be falsely decreased. 95-Ykn-264511:02 Blood Gases by [facility] Comments: [facility] LaboratoryPoint of [address] [place] [address] SO2 ISTAT 99 % (Normal) [...] Radial (Normal) BLD GAS TYPE ART (Normal) 39-Bvu-850084:52 Bedside Glucose Comments: [facility] LaboratoryPoint of [address] [place] [address] BEDSIDE GLU 214 mg/dL (Abnormal) Range: 70-110 Comments: MANAGEMENT OF PATIENT CARE PER NURSING PROTOCOL [id number] Basic Metabolic Profile (BMP) Comments: [facility] [id number] [place], [place], [id number] GAP 19 (Abnormal) Range: 5-15 CO2 11.0 [...] A.D.A. criteria.Please note revised GLUCOSE reference range wjgpazbru02/10/2017. 59-Exn-[id number]:37 CBC W/Diff, Automated Comments: [facility] [id number] [place], [id number] CRENATED RBC 1+ (Normal) ANISO 1+ (Normal) [...] 4.2-5.4 WBC 5.5 K/mm3 (Normal) Range: 4.4-11.0 91-[id number]:37 Lipase Comments: [facility] [id number] [place], [id number] LIPASE 86 U/L (Normal) Range: 73-393 63-Mfc-788072:37 Liver Profile Comments: [facility] [address] [place], [address] D BILI 1.07 mg/dL (Abnormal) Range: 0.00-0.30 T BILI 2.40 mg/dL (Abnormal) Range: 0.20-1.00 ALT 120 U/L (Abnormal) Range: 13-56 ALK P 94 U/L (Normal) Range: 45-117 AST 149 U/L (Abnormal) Range: 15-37 Comments: Moderate Hemolysis, Result may be falsely increased. GLOB 2.9 g/dL (Normal) Range: 2.2-4.2 ALB 3.0 g/dL (Abnormal) Range: 3.2-5.0 T PROT 5.9 g/dL (Abnormal) Range: 6.4-8.2 06-Qwi-041859:37 Magnesium Comments: [facility] [address] [place], [address] MG 2.0 mg/dL (Normal) Range: 1.6-2.6 Comments: Moderate Hemolysis, Result may be falsely increased. 25-Iup-715136:37 Troponin-I Comments: [facility] [address] [facility] [address] [place], [place], [address] TROPONIN-I 0.081 ng/mL (Abnormal) Comments: TROPONIN-I EXPECTED VALUES <0.045 Negative 0.045 - 0.590 Consistent with Cardiac Damage > OR = 0.600 Critical Value Not every elevated troponin is indicative of OK. T hesevalues should be used with clinical judgement in examiningthe patient's clinical picture for diagnosis. To establisha diagnosis of OK versus myocardial injury, there must be ademonstrated rise and/ or fall in the troponin values, inaddition to ischemic symptoms, EKG changes, new regionalwall motion abnormality, and/or angiographical evidence. PLEASE NOTE: REFERENCE RANGES EDITED 02/06/1824-Feb-20187-Wff-377540:21 CMV ANTIBODY (02236) Comments: today; PATIENT NOT FASTINGPERFORMED BY: [facility]Ajhiyf[address] [id number] Cytomegalovirus (CMV) Ab, IgG <0.60 U/mL (Normal) Range: 0.00-0.59 Comments: Negative <0.60 Equivocal 0.60 - 0.69 Positive >0.69 8-Cpf-833686:21 HEPATITIS PANEL (85633) Comments: today; PATIENT NOT FASTINGPERFORMED BY: [facility] [id number] Hep C Virus Ab <0.1 {s/co_ratio} (Normal) Range: 0.0-0.9 Comments: Negative: < 0.8 Indeterminate: 0.8 - 0.9 Positive: > 0.9 . The CDC recommends that a positive HCV antibody result be followed up with a HCV Nucleic Acid Amplification test (517295). Hep B Core Ab, IgM Negative (Normal) HBsAg Screen Negative (Normal) Hep A Ab, IgM Negative (Normal) 5-Evw-108879:21 EBV Panel (22360) Comments: today; PATIENT NOT FASTINGPERFORMED BY: [facility] [id number] Interpretation: SPRCS (Normal) Comments: EBV Interpretation Chart [...] <36.0 Equivocal 36.0 - 43.9 Positive >43.9 93-Prq-757330:19 CBC W/Diff, Automated Comments: Order Date: 02/23/18Order Info: 0184-1 - CBCDOrder Info: 37416-4 - [facility] [address] [place], [address] MACROCYTE 1+ (Normal) ANISO RARE (Normal) [...] 4.2-5.4 WBC 6.9 K/mm3 (Normal) Range: 4.4-11.0 93-Zwf-194825:19 Comprehensive Metabolic Profil Comments: Order Date: 02/23/18Order Info: 0786-1 - CMPOrder Info: 1798-8 - AMYOrder Info: 3040-3 - [facility]EC[facility] [address]fjpfq[address] [place], [address] GAP 11 (Normal) Range: 5-15 CO2 25.0 [...] A.D.A. criteria.Please note revised GLUCOSE reference range oicrchtce69/02/2018. 84-Dap-702686:19 Erythrocyte Sed Rate Comments: Order Date: 02/23/18Order Info: 0184-1 - CBCDOrder Info: 71250-1 - [facility] [address]dfho[address] [place], [address] SED RATE 16 mm/h (Normal) Range: 0-30 61-Wgy-948625:19 Lipase (66829) Comments: Order Date: 02/23/18Order Info: 0786- 1 - CMPOrder Info: 1798-8 - AMYOrder Info: 3040-3 - [facility]EC[facility] [address] [place], [address] LIPASE 92 U/L (Normal) Range: 73-393 24-Hak-736213:19 Amylase (87146) Comments: Order Date: 02/23/18Order Info: 0786- 1 - CMPOrder Info: 1798-8 - AMYOrder Info: 3040-3 - [facility]EC[facility] [address] [place], [address] ARIAN 27 U/L (Normal) Range: 25-115 7-Hiu-018451:15 Amylase Comments: CMP, CBCD IS FOR DR ORONA IS FOR [facility] [address]mlj[address] [place], [address] ARIAN 29 U/L (Normal) Range: 25-115 5-Jdv-258506:15 CBC W/Diff, Automated Comments: CMP, CBCD IS FOR DR ORONA IS FOR [facility] [address] [place], [address] ANISO 1+ (Normal) Absolute Lymph 0.41 {X10_3/ul} [...] 4.2-5.4 WBC 5.3 K/mm3 (Normal) Range: 4.4-11.0 6-Epj-886624:15 Comprehensive Metabolic Profil Comments: CMP, CBCD IS FOR DR COLÓNT IS FOR DR PATELTwin City [facility] Xbkjvamemw1211 [facility] CentercarriePort [place], [place], [address] GAP 9 (Normal) Range: 5-15 CO2 27.0 [...] A.D.A. criteria.Please note revised GLUCOSE reference range kbfaeihxv59/02/2018. 9-Fry-295016:15 Digoxin Level Comments: CMP, CBCD IS FOR DR ORONA IS FOR [facility] [address] [place], [place], [address] DIG 0.92 ng/mL (Normal) Range: 0.80-2.00 6-Chq-814283:15 Lipase Comments: KEVIN, CBCD IS FOR DR ORONA IS FOR [facility] [address]rrcxjhenx[address] [place], [place], [address] LIPASE 101 U/L (Normal) Range: 73-393 4-Rfj-699806:15 Lipid Profile Comments: KEVIN, CBCD IS FOR DR ORONA IS FOR [facility] [address]pll[address] [place], [place], [address] VLDL 15 mg/dL (Normal) Range: 5-40 LDL [...] 200-240 mg/dL Borderline >240 mg/dL High Risk 3-Dcg-496481:15 Magnesium Comments: CMP, CBCD IS FOR DR ORONA IS FOR [facility] [address] [place], [address] MG 1.8 mg/dL (Normal) Range: 1.6-2.6 2-Wvd-999792:15 Microalb:Creat Ratio,Random UR Comments: CMP, CBCD IS FOR DR ORONA IS FOR [facility] [address] [place], [address] MALB:CREAT 34.3 {mg/g_CRE} (Abnormal) MICROALBUMIN,UR 58.6 mg/L (Normal) UR CREAT 171.00 mg/dL (Normal) 4-Bpv-307994:15 Thyroid Stim Hormone (TSH) Comments: CMP, CBCD IS FOR DR ORONA IS FOR [facility] [address] [place], [address] TSH 1.84 {uIU/mL} (Normal) Range: 0.358-3.74 6-Kqe-279527:15 Vitamin B12 383 pg/mL (Normal) Comments: CMP, CBCD IS FOR DR ORONA IS FOR [facility] Acjzlpubbz[address] [place], [address] Range: 211-911 4-Vor-141086:15 Vitamin D,25 Hydroxy Comments: CMP, CBCD IS FOR DR ORONA IS FOR [facility] Jfstskxqtx[address] [place], [address] Vitamin D 25-OH 72.0 ng/mL (Normal) Range: 29.95-100.01 Comments: Vitamin D 25(OH) Status Range Deficiency <20 ng/mL (50nmol/L) Insuffciency 20 - 30 ng/mL (50 - 75 nmol/L) Sufficiency 30 - 100 ng/mL (75 - 250 nmol/L) Toxicity >100 ng/mL (>250 nmol/L) 24-Adg-000421:14 Blood Glucose , Office (53338) Blood Glucose , Office 137 (Normal) 12-Aom-720898:14 HgA1C , Office (08119) HgA1C , Office 6.1 % (Normal) Range: 4.6 - 7.1 :35 CBC W/Diff, Automated Comments: [facility] [address] [place], [place], [address] Absolute Lymph 1.30 {X10_3/ul} (Normal) Range: 0.83-4.51 [...] Metabolic Profil Comments: Reason for Laboratory Test [facility]VC[facility] [address]wq[address] [place], [place], [address] GAP 8 (Normal) Range: 5-15 CO2 31.0 mmol/L (Normal) Range: 21.0-32.0 CL 99 mmol/L (Normal) Range: 98-107 K 3.4 mmol/L (Abnormal) Range: 3.5-5.1 NA 138 mmol/L (Normal) Range: 136-145 T BILI 0.70 mg/dL (Normal) Range: 0.20-1.00 ALT 27 U/L (Normal) Range: 13-56 Comments: Please note revised ALT reference range oklhwmlck34/28/2018. ALK P 102 U/L (Normal) Range: 45-117 [...] A.D.A. criteria.Please note revised GLUCOSE reference range nykzwgvxn75/02/2018. 67-Lhi-95304:33 LDH 198 U/L (Normal) Comments: Reason for Laboratory Test OVSerial Specimen #1, #2 or #3? 1WTwin [facility] [address]sk[address] [place], [address] Range: 84-246 80-Hor-033584:15 Culture, Urine Comments: [facility] [address] [place], [place], [address] CUUR See Note (Normal) Comments: VERBAL ORDER DR. IRVIN'S OFFICE Urine CultureORGANISM 1: Mixed Gram Positive OrganismsColony Count 11,000-25,000MIX CULTURE Mixed contaminants. Submit a new specimen if indicated. 42-Xkg-222803:11 CBC W/Diff, Automated Comments: [facility] [address] [place], [place], [address] Absolute Lymph 1.34 {X10_3/ul} (Normal) Range: 0.83-4.51 [...] 4.2-5.4 WBC 5.4 K/mm3 (Normal) Range: 4.4-11.0 14-Abw-496251:11 Comprehensive Metabolic Profil Comments: Comments: [facility] [address] [place], [address] GAP 7 (Normal) Range: 5-15 CO2 28.0 mmol/L (Normal) Range: 21.0-32.0 CL 100 mmol/L (Normal) Range: 98-107 K 3.9 mmol/L (Normal) Range: 3.5-5.1 NA 135 mmol/L (Abnormal) Range: 136-145 T BILI 0.70 mg/dL (Normal) Range: 0.20-1.00 ALT 31 U/L (Normal) Range: 13-56 Comments: Please note revised ALT reference range pjsomzrro97/28/2018. ALK P 110 U/L (Normal) Range: 45-117 [...] A.D.A. criteria.Please note revised GLUCOSE reference range wosjxqwat19/02/2018. 78-Tpk-994612:10 Urinalysis, Complete Comments: ORDERED UACDR.JACINDA ORDERED CMP AND CBCDComments: clean catchComments: clean catchHow was Urine Obtained? DIESEL ENGINE PIPE FITTER TO SPECIFYCleveland Clinic [facility] [address] [place], [address] MUCUS, URINE RARE {/hpf} (Normal) [...] (Normal) CLARITY Cloudy (Normal) COLOR Yellow (Normal) 6-Hco-428170:42 ,Serum,hCG Quali. Comments: Comments: use blood in [facility] [address] [place], [address] HCGSQUAL NEGATIVE {Negative} (Normal) Range: 0-9 Nonpreg HCG Qual triggr 2 m[iU]/mL (Normal) 3-Qaj-405387:41 Basic Metabolic Profile (BMP) Comments: [facility] [address] [place], [address] GAP 10 (Normal) Range: 5-15 [...] A.D.A. criteria.Please note revised GLUCOSE reference range mqtzchmip49/02/2018. 7-Ync-468480:41 CBC-Complete Blood Cnt No Diff Comments: [facility] [address] [place], [place], [address] MPV 9.6 fL (Normal) Range: 6.2-12.0 PLT [...] 4.2-5.4 WBC 8.7 K/mm3 (Normal) Range: 4.4-11.0 8-Hfb-879631:41 Prothrombin Time w/INR Comments: [facility] [address] [place], [place], [address] INR 1.0 (Normal) PROTIME 12.9 s (Normal) Range: 11.7-14.9 03-Nov-20179:00 Culture, Urine Comments: [facility] [address] [place], [place], [address] CUUR See Note (Normal) Comments: Urine CultureORGANISM [...] 2253 6.8 ng/mL (Normal) Range: 0.0-8.3 Comments: TapTrak ECLIA methodologyPerformed at: [facility] [address] [id number] Director: Omar Hood PhD, Phone: [phone] :[phone] CBC W/Diff, Automated Comments: [facility] [address] [place], [place], [address] Absolute Lymph 1.47 {X10_3/ul} (Normal) Range: 0.83-4.51 [...] 4.2-5.4 WBC 6.0 K/mm3 (Normal) Range: 4.4-11.0 55-Kzl-97268:27 Comprehensive Metabolic Profil Comments: [facility] [address] [place], [place], [address] GAP 9 (Normal) Range: 5-15 CO2 28.0 [...] Ratio,Random UR Comments: [facility] [address] [place], [place], [address] MALB:CREAT 17.4 {mg/g_CRE} (Normal) MICROALBUMIN,UR 37.5 mg/L (Normal) UR CREAT 215.00 mg/dL (Normal) :40 CBC W/Diff, Automated Comments: [facility] [address] [place], [place], [address] Absolute Lymph 1.60 {X10_3/ul} (Normal) Range: 0.83-4.51 [...] 4.2-5.4 WBC 10.9 K/mm3 (Normal) Range: 4.4-11.0 74-Ehz-28537:39 Comprehensive Metabolic Profil Comments: Order Date: 12/06/16Order Info: 0786-1 - *CMP Complete Metabolic PanelWTwin City Hospital [address]ckzga[address] [place], [place], [address] GAP 10 (Normal) Range: 5-15 CO2 27.0 [...] Culture, Urine Comments: [facility] [address] [place], [place], [address] CUUR See Note (Normal) Comments: Urine CultureORGANISM [...] ordered and/or dispensed. :35 HgA1C , Office (61661) HgA1C , Office 6.5 % (Normal) Range: 4.6 - 7.1 :07 AFP, Tumor Marker Comments: Is Patient ? [facility] (refer to report for specific site)refer to report for address and phone number AFP TUMOR 2253 8.5 ng/mL (Abnormal) Range: 0.0-8.3 Comments: TapTrak ECLIA methodologyPerformed at: [facility] [address] [id number] Director: Omar Hood PhD, Phone: [phone] :[phone] CBC W/Diff, Automated Comments: [facility] [address] [facility] [address] [place], [address] Absolute Lymph 1.17 {X10_3/ul} (Normal) Range: 0.83-4.51 [...] Range: 4.4-11.0 31-May-20179:07 Comprehensive Metabolic Profil Comments: [facility] [address] [place], [address] GAP 9 (Normal) Range: 5-15 CO2 28.0 [...] the [place] Food and Drug Administration.Performed at: [place] [id number] [place] [id number] Director: Zia Jarvis MD, Phone: [phone] INS RES/DIAB RK . (Normal) LDL SIZE [...] . (Normal) 31-May-20179:07 Vitamin D,25 Hydroxy Comments: [facility] [address] [place], [place], [address] Vitamin D 25-OH 61.8 ng/mL (Normal) Comments: Vitamin D 25(OH) Status Range Deficiency <20 ng/mL (50nmol/L) Insuffciency 20 - 30 ng/mL (50 - 75 nmol/L) Sufficiency 30 - 100 ng/mL (75 - 250 nmol/L) Toxicity >100 ng/mL (>250 nmol/L) :48 Liver Profile Comments: [facility] [address]emrtx[address] [place], [address] D BILI 0.14 mg/dL (Normal) Range: 0.00-0.30 T BILI 0.50 mg/dL (Normal) Range: 0.20-1.00 ALT 57 U/L (Normal) Range: 12-78 ALK P 94 U/L (Normal) Range: 45-117 AST 40 U/L (Abnormal) Range: 15-37 GLOB 2.8 g/dL (Normal) Range: 2.3-3.5 ALB 3.9 g/dL (Normal) Range: 3.4-5.0 T PROT 6.7 g/dL (Normal) Range: 6.4-8.2 :45 Potassium Comments: [facility] [address]cbjp[address] [place], [address] K 4.3 mmol/L (Normal) Range: 3.5-5.1 :35 CBC W/Diff, Automated Comments: [facility] [address]kgs[address] [place], [place], [address] Absolute Lymph 1.24 {X10_3/ul} (Normal) Range: 0.83-4.51 [...] 4.2-5.4 WBC 3.6 K/mm3 (Abnormal) Range: 4.4-11.0 58-Ygf-81642:35 Comprehensive Metabolic Profil Comments: [facility] [address] [place], [address] GAP 10 (Normal) Range: 5-15 CO2 31.0 [...] Note (Normal) Comments: [facility] [address] [place], [address] 0 Comments: Patient: IFEOMA ASHRAF : 1965 (52/F) Acct Num: [id number] Phys: Janelle KING,Alejnadro Unit Num: [id number] Loc: LABSPEC Specimen: [id number] Received: 03/18/17 - 1126 Spec Ty pe: ASPIRATION TISSUES TISSUES: COMMENT Correlation with clinical, radiologic findings and appropriate follow up are necessary. CYTOLOGY GROSS Received are ten smears labeled wi th the patient's name and designated per the requisition as left thyroid FNA. Submitted for staining. / 03/18/17 TC:5 CPT: 26791 CYTOLOGY STUDY Slides are reviewed. The specimen [...] <signature on file> 01-Mar-20179:30 HEPATITIS C ANTIBODY (57869) Comments: PATIENT NOT FASTINGPERFORMED BY: [facility] [id number] Hep C Virus Ab <0.1 {s/co_ratio} (Normal) Range: 0.0-0.9 Comments: Negative: < 0.8 Indeterminate: 0.8 - 0.9 Positive: > 0.9 . The CDC recommends that a positive HCV antibody result be followed up with a HCV Nucleic Acid Amplification test (667834). :30 Potassium Serum (13157) Comments: PATIENT NOT FASTINGPERFORMED BY: [facility] [id number] Potassium, Serum 4.8 mmol/L (Normal) Range: 3.5-5.2 :29 HgA1C , Office (41320) HgA1C , Office 7.9 % (Abnormal) Range: 4.6 - 7.1 :53 CBC W/Diff, Automated Comments: [facility] [address] [place], [place], [address] Absolute Lymph 1.57 {X10_3/ul} (Normal) Range: 0.83-4.51 [...] 4.2-5.4 WBC 4.8 K/mm3 (Normal) Range: 4.4-11.0 81-Ugw-83146:53 Comprehensive Metabolic Profil Comments: [facility] [address] [place], [address] GAP 11 (Normal) Range: 5-15 CO2 32.0 [...] Lipid Profile Comments: [facility] [address]an[address] [place], [address] VLDL 37 mg/dL (Normal) Range: 5-40 [...] Ratio,Random UR Comments: [facility] [address] [place], [address] MALB:CREAT 19.7 {mg/g_CRE} (Normal) MICROALBUMIN,UR 27.8 mg/L (Normal) UR CREAT 141.00 mg/dL (Normal) :53 Thyroid Stim Hormone (TSH) Comments: [facility] [address] [place], [address] TSH 2.39 {uIU/mL} (Normal) Range: 0.358-3.74 :53 Vitamin D,25 Hydroxy Comments: [facility] [address]kpojbf[address] [place], [address] Vitamin D 25-OH 79.9 ng/mL (Normal) Comments: Vitamin D 25(OH) Status Range Deficiency <20 ng/mL (50nmol/L) Insuffciency 20 - 30 ng/mL (50 - 75 nmol/L) Sufficiency 30 - 100 ng/mL (75 - 250 nmol/L) Toxicity >100 ng/mL (>250 nmol/L) 97-Eao-645216:08 CBC W/Diff, Automated Comments: [facility] [address] [place], [place], [address] Absolute Lymph 2.04 {X10_3/ul} (Normal) Range: 0.83-4.51 [...] 4.2-5.4 WBC 9.0 K/mm3 (Normal) Range: 4.4-11.0 57-Bru-143790:08 Comprehensive Metabolic Profil Comments: [facility] [address]qtowu[address] [place], [place], [address] GAP 9 (Normal) Range: 5-15 CO2 27.0 [...] 126 mg/dLsuggests DIABETES MELLITUS per A.D.A. criteria. 64-Pud-133528:00 Culture, Urine Comments: [facility] [address] [place], [address] CUUR See Note (Normal) Comments: Urine CultureORGANISM 1: Mixed Gram Positive OrganismsColony Count >100,000MIX CULTURE Mixed contaminants. Submit a new specimen if indicated. 0-Xeb-965209:25 CBC W/Diff, Auto - EPLAB Comments: At [facility] Medical Oncologypatients receive CBC w/auto Differential ONLY. Physicianwill place an order for a manual differential or Pathologistreview at his discretion. [facility]. [address] [place] [address] MOTOR GRADER ROUGH GRADE: MATEO CASTANEDA DO PH:[phone] Clinic [facility] [address]pvai[address] [place], [address] Absolute Lymph 1.42 {X10_3/uL} (Normal) Range: [...] 4.2-5.4 WBC 6.3 K/mm3 (Normal) Range: 4.4-11.0 8-Kek-249070:25 Comprehensive Metabolic Profil Comments: Order Date: 06/07/16Order Date: 06/07/16Serial Specimen #1, #2 or #3? 1[facility] [address] [place], [address] GAP 11 (Normal) Range: 5-15 [...] 200 mg/dLsuggests DIABETES MELLITUS per A.D.A. criteria. 3-Nbl-204838:25 LDH 208 U/L (Normal) Comments: Order Date: 06/07/16Order Date: 16Serial Specimen #1, #2 or #3? [address] [place] [address] [address] [facility] [place], [place], [address] Range: 84-246 7-Qtf-283219:25 Uric Acid Comments: Order Date: 06/07/16Order Date: 16Serial Specimen #1, #2 or #3? [address] [place] [address] [address] [place], [place], [address] URIC 3.8 mg/dL (Normal) Range: 2.6-6.0 Comments: The drugs N-Acetylcysteine and Metamizole may falsely deressthis assay. :10 HgA1C , Office (70708) HgA1C , Office 8.0 % (Abnormal) Range: 4.6 - 7.1 :10 Blood Glucose , Office (75411) Blood Glucose , Office 223 (Normal) :24 AFP, Tumor Marker Comments: Is Patient ? [facility] (refer to report for specific site)refer to report for address and phone number AFP TUMOR 2253 8.5 ng/mL (Abnormal) Range: 0.0-8.3 Comments: TapTra[employer] ECLIA methodologyPerformed at: [facility] [address] [id number] Director: Omar Hood PhD, Phone: [phone] :[phone] CBC W/Diff, Automated Comments: [facility] [address]ws[address]urs[address] [place], [place], [address] Absolute Lymph 1.35 {X10_3/ul} (Normal) Range: 0.83-4.51 [...] Range: 4.4-11.0 :24 Comprehensive Metabolic Profil Comments: [facility] [address]izj[address] [place], [place], [address] GAP 9 (Normal) Range: 5-15 CO2 27.0 [...] 126 mg/dLsuggests DIABETES MELLITUS per A.D.A. criteria. 79-Ayr-94423:24 NMR Lipoprofile Comments: [facility] (refer to report for specific site)refer [...] the US Food and Drug Administration.Performed at: [address] [id number] Director: Zai Jarvis MD, Phone: [phone] INS RES/DIAB RK . (Normal) LDL SIZE [...] mg/dL (Normal) Range: 100-199 LIPIDS . (Normal) 58-Lox-803691:53 CBC W/Diff, Automated Comments: [facility] [address]vlax[address] [place], [place], [address] Absolute Lymph 1.41 {X10_3/ul} (Normal) Range: 0.83-4.51 [...] 4.2-5.4 WBC 12.2 K/mm3 (Abnormal) Range: 4.4-11.0 05-Nlg-158526:53 Comprehensive Metabolic Profil Comments: [facility] [address] [place], [place], [address] GAP 13 (Normal) Range: 5-15 CO2 24.0 [...] W/Diff, Automated Comments: [facility] [address] [place], [place], [address] Absolute Lymph 1.92 {X10_3/ul} (Normal) Range: 0.83-4.51 [...] Metabolic Profil Comments: [facility] [address]ctcyfn[address] [place], [place], [address] GAP 11 (Normal) Range: 5-15 CO2 25.0 [...] Date: 06/07/16Order Date: 06/07/16[facility] [address] [place], [place], [address] MG 2.0 mg/dL (Normal) Range: 1.8-2.4 :57 CBC W/Diff, Auto - EPLAB Comments: At [facility] Medical Oncologypatients receive CBC w/auto Differential ONLY. Physicianwill place an order for a manual differential or Pathologistreview at his discretion. [facility]. [address] [place] [address] [address] MOTOR GRADER ROUGH GRADE: MATEO CASTANEDA DO PH:[phone] Clinic [facility] [address]uls[address]xavbv[address] [place], [place], [address] Absolute Lymph 1.38 {X10_3/uL} (Normal) Range: 0.83-4.51 [...] Profil Comments: Order Date: 06/07/16OV Order #: [id number] Specimen #1, #2 or #3? 1 [id number] [address]xsufybu[address] [place], [place], [address] GAP 13 (Normal) Range: 5-15 CO2 24.0 [...] (Normal) Comments: Order Date: 06/07/16 Order #: [id number] Specimen #1, #2 or #3? [address] [place] [address] [place], [address] Range: 84-246 :56 Magnesium Comments: Order Date: 06/07/16OV Order #: [id number] Specimen #1, #2 or #3? [id number] [place] [address] [place], [address] MG 1.5 mg/dL (Abnormal) Range: 1.8-2.4 :56 Uric Acid Comments: Order Date: 06/07/16OV Order #: [id number] Specimen #1, #2 or #3? [address] [place] [address] [place], [place], [address] URIC 4.8 mg/dL (Normal) Range: 2.6-6.0 Comments: The drugs N-Acetylcysteine and Metamizole may falsely deressthis assay. :30 Liver Profile Comments: [facility] [address]ka[address] [place], [address] D BILI 0.13 mg/dL (Normal) [...] WBC Comments: PATIENT NOT FASTINGPERFORMED BY: [facility] [address]ch[address] [id number] Information: NURSE DRAW (98627) Immature Grans (Abs) 0.0 {x10E3/uL} (Normal) Range: [...] COMPREHENSIVE Comments: PATIENT NOT FASTINGPERFORMED BY: [facility] [id number] [facility] [id number] ([id number]) ALT (SGPT) 41 [iU]/L (Abnormal) Range: 0-32 [...] (Abnormal) Range: 65-99 :09 HgA1C , Office (18659) HgA1C , Office 7.0 % (Normal) Range: 4.6 - 7.1 :14 AFP, Tumor Marker Comments: Is [facility] ? [facility] (refer to report for specific site)refer to report for address and phone number AFP TUMOR 2253 7.7 ng/mL (Normal) Range: 0.0-8.3 Comments: [employer] ECLIA methodologyPerformed at: [facility] [address] [id number] Director: Omar Hood PhD, Phone: [phone] :14 CBC W/Diff, Automated Comments: [facility] [id number] [place] [address], [address] ; will review on 05/17 Absolute [...] Metabolic Profil Comments: [facility] [id number] [place], [address] GAP 7 (Normal) Range: 5-15 CO2 28.0 [...] Lipid Profile Comments: [facility] F[address]vefhmuc[address] [place], [id number] VLDL 36 mg/dL (Normal) Range: 5-40 LDL [...] Ratio,Random UR Comments: [facility] [address] [place], [phone] ; will review on 05/17 MALB:CREAT 14.6 {mg/g_CRE} (Normal) MICROALBUMIN,UR 23.4 mg/L (Normal) UR CREAT 160.00 mg/dL (Normal) :14 Thyroid Stim Hormone (TSH) Comments: [facility] [address] [place], [address] TSH 1.89 {uIU/mL} (Normal) Range: 0.358-3.74 :14 Vitamin D,25 Hydroxy Comments: [facility] Mgdmpedhde5[address] [place], [phone] ; will review on 05/17 Vitamin D 25-OH 53.2 ng/mL (Normal) Comments: Vitamin D 25(OH) Status Range Deficiency <20 ng/mL (50nmol/L) Insuffciency 20 - 30 ng/mL (50 - 75 nmol/L) Sufficiency 30 - 100 ng/mL (75 - 250 nmol/L) Toxicity >100 ng/mL (>250 nmol/L) :23 CBC W/Diff, Automated Comments: [facility] Xcueowibgo[address] [place], [place], [address] Absolute Lymph 1.65 {X10_3/ul} (Normal) Range: 0.83-4.51 [...] Range: 4.4-11.0 :23 Comprehensive Metabolic Profil Comments: [facility] Utjisxymft[address] [place], [place], [address] GAP 9 (Normal) Range: 5-15 CO2 30.0 [...] 126 mg/dLsuggests DIABETES MELLITUS per A.D.A. criteria. 11-Syh-002804:07 HgA1C , Office (47555) HgA1C , Office 8.5 % (Abnormal) Range: 4.6 - 7.1 :15 CBC W/Diff, Automated Comments: [facility] Kapewbcbds[address] [place], [place], [address] Absolute Lymph 1.76 {X10_3/ul} (Normal) Range: 0.83-4.51 [...] 4.2-5.4 WBC 6.7 K/mm3 (Normal) Range: 4.4-11.0 58-Wix-72553:15 Comprehensive Metabolic Profil Comments: [facility] Tbngijtkif0187 [address] [place], [place], [address] GAP 13 (Normal) Range: 5-15 CO2 23.0 [...] Lipid Profile Comments: [facility] Anvssfkqor0699 [facility] [place], [address] VLDL 45 mg/dL (Abnormal) Range: [...] D,25 Hydroxy Comments: [facility] Gepkxncbyb0623 [facility] [address]. [place], [place], [address] Vitamin D 25-OH 28.8 ng/mL (Normal) Comments: Vitamin D 25(OH) Status Range Deficiency <20 ng/mL (50nmol/L) Insuffciency 20 - 30 ng/mL (50 - 75 nmol/L) Sufficiency 30 - 100 ng/mL (75 - 250 nmol/L) Toxicity >100 ng/mL (>250 nmol/L); ADDENDA: non-emergent till apt :35 CBC W/Diff, Automated Comments: [facility] Ez[address] [place], [place], [address] Absolute Lymph 1.26 {X10_3/ul} (Normal) Range: 0.83-4.51 [...] Metabolic Profil Comments: [facility] Ulgimabzie[address] [place], [place], [address] GAP 14 (Normal) Range: 5-15 CO2 26.0 [...] 200 mg/dLsuggests DIABETES MELLITUS per A.D.A. criteria. 05-Bkv-44555:0 ASPIRATION (SLIDES ONLY) See Note (Normal) Comments: [facility] Xwmromvvax[address] [place], [place], [id number] 0 Comments: Patient: IFEOMA ASHRAF : 1965 (50/F) Acct Num: [id number] Phys: Alejandro Luis MD Unit Num: [id number] Loc: LABSPEC Specimen: [id number] Received: 01/06/16 - 1129 Spec Ty pe: ASPIRATION TISSUES TISSUES: COMMENT Correlation with clinical, radiologic findings and appropriate follow up are necessary. CYTOLOGY GROSS Received are 10 smears labeled wit h the patient's name and designated per the requisition as fine needle aspiration left thyroid. Submitted for staining. 01/06/16 TC:5 CPT:51192 CYTOLOGY STUDY Slides are reviewed. The spe [...] Signed Toni Yepez 01/07/16 <signature on file> 3-Mfl-062717:29 CBC W/Diff, Auto - EPLAB Comments: At [facility] Medical Oncologypatients receive CBC w/auto Differential ONLY. Physicianwill place an order for a manual differential or Pathologistreview at his discretion. [facility]. [address] [place] [address] [address] [employer]OR GRADER [employer] GRADE: MATEO CASTANEDA DO PH:[phone] Qwdnfvywcl6[address] [place], [address] Absolute Lymph 1.49 {X10_3/uL} (Normal) Range: 0.83-4.51 [...] 4.2-5.4 WBC 4.6 K/mm3 (Normal) Range: 4.4-11.0 4-Sty-644346:28 Comprehensive Metabolic Profil Comments: Serial Specimen #1, #2 or #3? 1[facility] Z[address]annvlgyz[address] [place], [place], [address] GAP 8 (Normal) Range: 5-15 CO2 26.0 [...] 126 mg/dLsuggests DIABETES MELLITUS per A.D.A. criteria. 7-Gnj-778596:28 LDH 213 U/L (Normal) Comments: Serial Specimen #1, #2 or #3? 1[facility] H[address]aimhgeus[address] [place], [address] Range: 84-246 3-Qmv-837363:28 Magnesium Comments: Serial Specimen #1, #2 or #3? 1[facility] Sgvdqtnmwk2[address] [place], [address] MG 1.6 mg/dL (Abnormal) Range: 1.8-2.4 :28 Uric Acid Comments: Serial Specimen #1, #2 or #3? 1[facility] Zdkwwbdutf78[address] [place], [address] URIC 4.8 mg/dL (Normal) Range: 2.6-6.0 26-Nov-20159:36 Miscellaneous Lab Procedure Comments: Comments: [id number] URINE TOX,RUN LOWEST TESTTest(s) Ordered: [id number] URINE TOX,RUN LOWEST TESTCleveland Clinic [facility] Dqtybrpthv6891 [address] [place], [place], [address] [facility] Comments: [id number] 6+OXYCODONE-BUND (ng/mL)DRUG RESULT SCREEN CUTOFF____ Amphetamines,Urine Negat LAB (Normal) scott ng/mL 1000Amphetamine test includes Amphetamine and Methamphetamine.Barbiturates Negative ng/mL 200Benzodiazepines Negative ng/mL 200Cannabinoid TEST Negative ng/mL 20Cocaine (Metab) Negative ng/mL 300Opiates Positive ng/mL 300 Opiates test includes Codeine, Morphine, Hydromorphone, [place] codone.Please Note:Confirmation performed by Mass SpectrometryCodeine NegativeMorphine NegativeHydromorphone NegativeHydrocodone Positive Hydrocodone Confirm 1950 ng/mL 300Oxycodone/Oxymorphone,Urine Negative ng/mL 300 Test includes Oxydodone and Oxymorphone. TESTI NG PERFORMED AT [facility]. ORIGINAL REPORT ON FILE IN LAB CONTAINS ADDITIONAL TEST SITE INFORMATION. :36 Urine Drug Screen (VISTA) Comments: Comments: [id number] URINE TOX,RUN LOWEST TESTList of Drugs Taken or Suspected? UNKNOWNC[facility] [address]ujijz[address] [place] [address], [id number] ; ordered by Basali THC NEGATIVE (Normal) [...] TESTING MUST BE ORDERED SEPARATELY. USE TESTMNEMONIC: [facility] 76-Vwv-917821:20 HgA1C , Office (28521) HgA1C , Office 7.3 % (Abnormal) Range: 4.6 - 7.1 :13 AFP, Tumor Marker Comments: Is Patient ? [facility] (refer to report for specific site)refer to report for address and phone number AFP TUMOR 2253 6.4 ng/mL (Normal) Range: 0.0-8.3 Comments: Khanh ECLIA methodologyPerformed at: CB - [facility] [address] [id number] Director: Omar Hood PhD, Phone: [phone] :[phone] CBC W/Diff, Automated Comments: [facility] Eghjfjhoce[address] [place], [place], [phone] Absolute Lymph 1.59 {X10_3/ul} (Normal) Range: 0.83-4.51 [...] Metabolic Profil Comments: [facility] F[address] [place], [place], [address] GAP 10 (Normal) Range: 5-15 CO2 24.0 [...] per A.D.A. criteria. :13 Lipid Profile Comments: [facility] Hltwzutwvl96[address] [place], [place], [address] ; non-emergent and pt has a f/u [...] Ratio,Random UR Comments: [facility] Kartsezmcs[address] [place], [address] MALB:CREAT 17.0 {mg/g_CRE} (Normal) MICROALBUMIN,UR 43.7 mg/L (Normal) UR CREAT 257.00 mg/dL (Normal) :13 Thyroid Stim Hormone (TSH) Comments: [facility] Z[address] [place], [address] TSH 1.82 {uIU/mL} (Normal) Range: 0.358-3.74 :13 Vitamin D,25 Hydroxy Comments: [facility] Ivleikzlut[address] [place], [id number] ; will review at 11/10 appt Vitamin D 25-OH 39.8 ng/mL (Normal) Comments: Vitamin D 25(OH) Status Range Deficiency <20 ng/mL (50nmol/L) Insuffciency 20 - 30 ng/mL (50 - 75 nmol/L) Sufficiency 30 - 100 ng/mL (75 - 250 nmol/L) Toxicity >100 ng/mL (>250 nmol/L) :40 CBC W/Diff, Automated Comments: [facility] En[address] [place], [address] Absolute Lymph 1.47 {X10_3/ul} (Normal) Range: [...] 4.2-5.4 WBC 4.7 K/mm3 (Normal) Range: 4.4-11.0 72-Jti-57553:40 Comprehensive Metabolic Profil Comments: [facility] Oiuinkuigo[address] [place], [place], [address] GAP 13 (Normal) Range: 5-15 CO2 24.0 [...] per A.D.A. criteria. :49 HgA1C , Office (55769) HgA1C , Office 7.8 % (Abnormal) Range: 4.6 - 7.1 :09 CBC W/Diff, Automated Comments: [facility] Vhbjtokomm[address] [place], [address] Absolute Lymph 1.07 {X10_3/ul} (Normal) Range: 0.83-4.51 [...] 4.2-5.4 WBC 5.3 K/mm3 (Normal) Range: 4.4-11.0 19-Pfn-295433:09 Comprehensive Metabolic Profil Comments: [facility] Srvbyjcojo[address] [place], [place], [address] GAP 7 (Normal) Range: 5-15 CO2 28.0 [...] 200 mg/dLsuggests DIABETES MELLITUS per A.D.A. criteria. 8-Sib-843759:42 CBC W/Diff, Automated Comments: At [facility] Outpatient [facility] Medical Oncologypatients receive CBC w/auto Differential ONLY. Physicianwill place an order for a manual differential or Pathologistreview at his discretion. [facility]. [address] [place] [address] [place] [address] MOTOR GRADER [employer]OUGH GRADE: MATEO CASTANEDA DO PH:[phone] performed at:[facility] Laborato [address] [place], [place] [address] Absolute Lymph 1.60 {X10_3/ul} (Normal) Range: 0.83-4.51 [...] 4.2-5.4 WBC 7.0 K/mm3 (Normal) Range: 4.4-11.0 9-Klj-009802:42 Comprehensive Metabolic Profil Comments: Serial Specimen #1, #2 or #3? 1Test performed at:[facility] Dsykzxnheg14[address] [place], [place] [address] GAP 9 (Normal) Range: 5-15 CO2 25.0 [...] Comments: Please note revised CREATININE reference range uqswqqxvi45/22/2015. BUN 20 mg/dL (Abnormal) Range: 7-18 GLU 118 mg/dL (Abnormal) Range: 70-110 Comments: Fasting Glucose result from 110 to <126 mg/dLsuggests IMPAIRED HOMEOSTASIS per A.D.A. criteria. 4-Rcy-623803:42 LDH 133 U/L (Normal) Comments: Serial Specimen #1, #2 or #3? 1Test performed at:[facility] Gwanttydky[address] [place] [address] Range: 84-246 6-Cjg-607511:42 Uric Acid Comments: Serial Specimen #1, #2 or #3? 1Test performed at:[facility] Hyopmrpozv[address] [place] [address] URIC 4.6 mg/dL (Normal) Range: 2.6-6.0 :02 CBC W/Diff, Automated Comments: Test performed at:[facility] L[address]awlpljf[address] [place] [address] ; handled by vicki Absolute Lymph 1.23 [...] 4.2-5.4 WBC 4.1 K/mm3 (Abnormal) Range: 4.4-11.0 3-Wgj-733467:02 Comprehensive Metabolic Profil Comments: Test performed at:[facility] T[address]jlayn[address] [place], [place] [address] GAP 12 (Normal) Range: 5-15 CO2 23.0 [...] 200 mg/dLsuggests DIABETES MELLITUS per A.D.A. criteria. 08-Tai-525389:49 VITAMIN B-12 (CYANOCOBALAMIN) Comments: PATIENT NOT FASTINGPERFORMED BY: [facility] CenterMnuulk0581 [address] [id number] ([address]) Vitamin B12 464 pg/mL (Normal) Range: 211-946 :49 Vitamin D Hydroxy (37194) Comments: PATIENT NOT FASTINGPERFORMED BY: [facility] [id number] Vitamin D, 25-Hydroxy 11.5 ng/mL (Abnormal) Range: 30.0-100.0 Comments: Vitamin D deficiency has been defined by the [place] ofTrihealthcine and an Endocrine Society practice guideline as alevel of serum 25-OH vitamin D less than 20 ng/mL (1,2).The Endocrine Society went on to further define vitamin Dinsufficiency as a level between 21 and 29 ng/mL (2).1. IOM ([place] of Medicine). 2010. Dietary reference intakes for calcium and D. [place]: The National AcademEchologics Press.2. Sami MF, Sophie MOORE, Xiomara LARES, et al. Evaluation, treatment, and prevention of vitamin D deficiency: an Endocrine Society clinical practice guideline. JCEM. 2010; 96(7):1911-30. :49 CBC W/AUTO DIFF WBC Comments: PATIENT NOT FASTINGPERFORMED BY: [facility] [id number] Information: [id number] (10662) Immature Grans (Abs) 0.0 {x10E3/uL} (Normal) Range: [...] 3.77-5.28 WBC 6.1 {x10E3/uL} (Normal) Range: 3.4-10.8 03-Hvk-093733:28 URINE GENESIS CULTURE-NITA COL Comments: PATIENT NOT FASTINGPERFORMED BY: [facility] Ptnakj[address] [id number] Information: SRC:[facility] [id number] COUNT (64953) Antimicrobial MIHEAD (Normal) Comments: S = Susceptible; [...] Imipenem Meropenem Urine Final report (Abnormal) Culture,Comprehensive 56-Fiz-930062:24 Urinalysis, Office (19260) UA - LEUKOCYTE ESTERASE Trace (Normal) UA [...] Comments: Test performed at:[facility] Shjwnshdbj7109 [facility] [address] BEDSIDE GLU 129 mg/dL (Abnormal) Range: 70-110 Comments: MANAGEMENT OF PATIENT CARE PER NURSING PROTOCOL 31-Mar-20159:47 Urinalysis, Office (20353) UA - LEUKOCYTE ESTERASE Trace (Normal) UA - NITRITE Negative (Normal) URINE UROBILINGN NITA TIMED 2 mg/dL (Normal) UA - PROTEIN 300 mg/dL (Normal) UA - PH 6.0 (Normal) UA - BLOOD Hemolyzed Large (Normal) UA - SPECIFIC GRAVITY 1.030 (Abnormal) UA - KETONES 15 mg/dL (Abnormal) UA - BILIRUBIN Moderate (Normal) UA - GLUCOSE Negative (Normal) 42-Jqx-811187:57 Basic Metabolic Profile (BMP) Comments: Test performed at:[facility] X[address] [place], [place] [address] GAP 11 (Normal) Range: 5-15 CO2 27.0 [...] 126 mg/dLsuggests DIABETES MELLITUS per A.D.A. criteria. 88-Qoa-189366:57 Digoxin Level Comments: Test performed at:[facility] Zszzxbmlwb9591 [place] [address] DIG 1.17 ng/mL (Normal) Range: 0.80-2.00 18-Fgn-039683:57 Hemoglobin A1c Comments: Test performed at:[facility] [address] [place] [address] HGB A1C 7.0 % (Abnormal) Range: 4.2-6.3 44-Bqy-987403:57 Thyroid Stim Hormone (TSH) Comments: Test performed at:[facility] [address]ys[address] [place] [address] TSH 0.89 {uIU/mL} (Normal) Range: 0.358-3.74 3-Gdj-758966:17 Urine Culture,Comprehensive Comments: PATIENT NOT FASTINGPERFORMED BY: [facility] CenterOqshom1350 [address] [id number] Information: SRC:[facility] [id number] Result 1 BETAGB (Abnormal) Comments: Beta hemolytic [...] CLEAN CATCHTest performed at:[facility] Ppjtnixgsv2837 [place] [address] AMORPHOUS 1+ URATE (Normal) MUCUS, [...] :55 CBC W/Diff, Automated Comments: Test performed at:[facility] Gnzdbvmxgc[address] [place] [address] Absolute Lymph 1.29 {X10_3/ul} (Normal) Range: [...] Comments: Test performed at:[facility] Elhhpplikg[address] [place], [place] [address] GAP 10 (Normal) Range: 5-15 CO2 26.0 [...] Comments: Test performed at:[facility] Ozxpityzyd90[address] [place] [address] LIPASE 142 U/L (Normal) Range: 70-290 2-Bag-269178:40 HgA1C , Office (42325) HgA1C , Office 7.4 % (Abnormal) Range: 4.6 - 7.1 :03 CBC W/Diff, Automated Comments: Test performed at:[facility] Cwhztgpuxq39[address] [place] [address] Absolute Lymph 1.31 {X10_3/ul} (Normal) Range: 0.83-4.51 [...] :03 Comprehensive Metabolic Profil Comments: Test performed at:[facility] Ymuxjrxrfk3228 [facility]. [place], [place] [address] GAP 11 (Normal) Range: 5-15 CO2 26.0 [...] 126 mg/dLsuggests DIABETES MELLITUS per A.D.A. criteria. 65-Kwy-931050:00 Culture, Urine Comments: Test performed at:[facility] Bhunlfklgv1256 [facility] [place] [address] CUUR See Note (Normal) Comments: Urine CultureORGANISM 1: Streptococcus agalactiae (B)[place] Count 1000-10,000 Streptococcus agalactiae (B): REACTION Ampicillin [...] W/Diff, Auto - EPLAB Only Comments: At [facility] Outpatient [facility] Care patientsreceive CBC w/auto Differential ONLY. Physician will placean order for a manual differential or Pathologist review athis discretion. [facility]. [address] [place] [address] [place] [address] MOTOR GRADER ROUGH GRADE: MATEO CASTANEDA DO PH:[phone] performed at:[facility] Uuonuqqyzv312 [address] [place], [place] [address] ; [facility] Absolute Neut 2.7 {X10_3/uL} (Normal) Range: 2.0-7.7 [...] #3? 1Test performed at:[facility] [address]fqfkhbrel[address] [place], [place] [address] Range: 87-241 Comments: ADDENDA: elliott :34 TSH (64770) Comments: PATIENT WAS FASTINGPERFORMED BY: [facility] Hmmusx5[address] [id number] TSH 1.240 {uIU/mL} (Normal) Range: 0.450-4.500 :34 LIPID PANEL (08809) Comments: PATIENT WAS FASTINGPERFORMED BY: [facility] [id number] LDL/HDL Ratio 2.6 {ratio_units} (Normal) Range: 0.0-3.2 [...] CREATININE RATIO Comments: PATIENT WAS FASTINGPERFORMED BY: [facility] Jdswue9[address] [id number]; non- emergent till apt tomorrow (42227) AND (96536) Microalb/Creat Ratio 14.8 {mg/g_creat} (Normal) Range: 0.0-30.0 Microalbumin, Urine 44.5 ug/mL (Abnormal) Range: 0.0-17.0 Creatinine, Urine 301.0 mg/dL (Abnormal) Range: 15.0-278.0 :34 METABOLIC PANEL, Comments: PATIENT WAS FASTINGPERFORMED BY: [facility]CoPin[facility] CenterQjvnmj2005 [facility] [address] [id number] Information: [id number] COMPREHENSIVE (25670) ALT (SGPT) 21 [iU]/L (Normal) Range: 0-32 [...] Glucose, Serum 161 mg/dL (Abnormal) Range: 65-99 6-Vjs-028480:10 HgA1C , Office (85310) HgA1C , Office 7.2 % (Abnormal) Range: 4.6 - 7.1 :47 CBC W/Diff, Automated Comments: Test performed at:[facility] Xtsnvkmlzf[address] [place], [place] 59[address] ; Handled by Vicki Absolute Lymph 1.43 [...] 4.2-5.4 WBC 5.4 K/mm3 (Normal) Range: 4.4-11.0 15-Hjb-943270:47 Comprehensive Metabolic Profil Comments: Test performed at:[facility] Ofpfnkqdqu9[address] [place], [place] [address] GAP 6 (Normal) Range: 5-15 CO2 30.0 [...] Microscopic Examination Comments: PATIENT NOT FASTINGPERFORMED BY: [facility] EngineeringPinon Health CenterXfuhlp9187 [facility] [id number] Bacteria Few (Normal) Mucus Threads Present (Normal) Epithelial Cells (non renal) 0-10 {/hpf} (Normal) Range: 0 - 10 RBC 0-2 {/hpf} (Normal) Range: 0 - 2 WBC >30 {/hpf} (Abnormal) Range: 0 - 5 :01 Urinalysis, Routine Comments: PATIENT NOT FASTINGPERFORMED BY: [facility] Jbdvck4415 [address] [facility] [id number] Microscopic Examination See below: (Normal) Comments: Microscopic was indicated and was performed. Nitrite, Urine Negative (Normal) Urobilinogen,Semi-Qn 0.2 mg/dL (Normal) Range: 0.0-1.9 Bilirubin Negative (Normal) Occult Blood Negative (Normal) Ketones Trace (Abnormal) Glucose Negative (Normal) Protein 1+ (Abnormal) WBC Esterase 3+ (Abnormal) Appearance Turbid (Abnormal) Urine-Color Yellow (Normal) pH 6.0 (Normal) Range: 5.0-7.5 Specific [place] 1.030 (Normal) Range: 1.005-1.030 88-Mir-136307:18 CBCD ALC 1.30 {X10_3/ul} (Normal) Range: 0.83-4.51 [...] 4.2-5.4 WBC 4.5 K/mm3 (Normal) Range: 4.4-11.0 30-Tnk-407586:18 CMP GAP 7 (Normal) Range: 5-15 CO2 [...] mg/dLsuggests DIABETES MELLITUS per A.D.A. criteria. :01 EMMGK-ALSAKGBZALA-TLXHM (92950) Comments: PATIENT NOT FASTINGPERFORMED BY: [place] 71485[address] [facility] [address] [id number] AFP, Serum, Tumor Marker 7.1 ng/mL (Normal) Range: 0.0-8.3 Comments: Khanh ECLIA methodology :01 PTT (Activated Partial Comments: PATIENT NOT FASTINGPERFORMED BY: [facility] [id number] Thromboplastin Time) (58889) aPTT 25 {sec} (Normal) Range: 24-33 Comments: This test has not been validated for monitoring unfractionated heparintherapy. aPTT-based therapeutic ranges for unfractionated heparintherapy have not been established. For general guidelines onHeparin monitoring, refer to the [facility] [facility] Directory of Services. :01 PT (Prothrobim Time) (75632) Comments: PATIENT NOT FASTINGPERFORMED BY: [place] [address]85[address] [facility] [id number] Prothrombin Time 10.4 {sec} (Normal) Range: 9.1-12.0 INR 1.0 (Normal) Range: 0.8-1.2 Comments: Reference interval is for non-anticoagulated patients. . Suggested INR therapeutic range for Vitamin K anta gonist therapy: Standard Dose (moderate intensity therapeutic range): 2.0 - 3.0 Higher intensity therapeutic range 2.5 - 3.5 :01 TSH (48898) Comments: PATIENT NOT FASTINGPERFORMED BY: [facility] CenterUpnqoa8638 [facility] [address] [id number] TSH 1.450 {uIU/mL} (Normal) Range: 0.450-4.500 :01 CBC W/AUTO DIFF WBC Comments: PATIENT NOT FASTINGPERFORMED BY: [facility] CenterJqajer3505 [address] [id number] Information: [id number] (80612) Immature Grans (Abs) 0.0 {x10E3/uL} (Normal) Range: [...] CREATININE RATIO Comments: PATIENT NOT FASTINGPERFORMED BY: [facility] CenterZxiacf5197 [address] [id number] (55735) AND (11959) Microalb/Creat Ratio 26.4 {mg/g_creat} (Normal) Range: 0.0-30.0 Microalbumin, Urine 96.0 ug/mL (Abnormal) Range: 0.0-17.0 Creatinine, Urine 364.2 mg/dL (Abnormal) Range: 15.0-278.0 :01 METABOLIC PANEL, COMPREHENSIVE Comments: PATIENT NOT FASTINGPERFORMED BY: [facility] Rqhegd[address]208 [address] [id number] (08990) ALT (SGPT) 19 [iU]/L (Normal) Range: 0-32 [...] mg/dL (Abnormal) Range: 65-99 :01 LIPID PANEL (91437) Comments: PATIENT NOT FASTINGPERFORMED BY: [facility] CenterQimgfu7126 [facility] [address] [id number] LDL/HDL Ratio 2.1 {ratio_units} (Normal) Range: 0.0-3.2 [...] (Normal) Range: 100-199 :19 HgA1C , Office (29099) HgA1C , Office 6.3 % (Normal) Range: 4.6 - 7.1 :11 LDH 205 U/L (Normal) Comments: Serial Specimen #1, #2 or #3? 1 Range: 87-241 77-Ise-964660:10 ECBCD ANC 3.4 {X10_3/uL} (Normal) Range: 2.0-7.7 [...] 4.2-5.4 WBC 5.3 K/mm3 (Normal) Range: 4.4-11.0 4-Omq-856494:07 CBCD ALC 1.71 {X10_3/ul} (Normal) Range: 0.83-4.51 [...] 4.2-5.4 WBC 7.0 K/mm3 (Normal) Range: 4.4-11.0 9-Mzc-369948:07 CMP GAP 7 (Normal) Range: 5-15 CO2 [...] & Aerobic Comments: PATIENT NOT FASTINGPERFORMED BY: [facility] CenterHcwgxr7449 [facility] [id number] Information: SRC:EMIL [id number] RIGHT EYE Culture (41073) Antimicrobial MIHEAD (Normal) Comments: S = Susceptible; [...] hours. Anaerobic Culture Final report (Normal) :57 [id number]-USCZRBTBCNY-OWTKD (59669) Comments: PATIENT WAS FASTINGPERFORMED BY: [facility] [id number] AFP, Serum, Tumor Marker 9.2 ng/mL (Abnormal) Range: 0.0-8.3 Comments: Khanh ECLIA methodology :57 PTT (Activated Partial Comments: PATIENT WAS FASTINGPERFORMED BY: [facility]6370 [facility] [place] [id number] Thromboplastin Time) (05479) aPTT 26 {sec} (Normal) Range: 24-33 Comments: This test has not been validated for monitoring unfractionated heparintherapy. aPTT-based therapeutic ranges for unfractionated heparintherapy have not been established. For general guidelines onHeparin monitoring, refer to the [facility] Directory of Services. :57 PT (Prothrobim Time) (40588) Comments: PATIENT WAS FASTINGPERFORMED BY: [place] [facility] CenterDtmedz[address] [facility] [id number] Prothrombin Time 10.5 {sec} (Normal) Range: 9.1-12.0 INR 1.0 (Normal) Range: 0.8-1.2 Comments: Reference interval is for non-anticoagulated patients. . Suggested INR therapeutic range for Vitamin K anta gonist therapy: Standard Dose (moderate intensity therapeutic range): 2.0 - 3.0 Higher intensity therapeutic range 2.5 - 3.5 :57 TSH (93064) Comments: PATIENT WAS FASTINGPERFORMED BY: [facility] CenterSntwgi[address] [id number] TSH 3.200 {uIU/mL} (Normal) Range: 0.450-4.500 :57 CBC WITH MANUAL DIFF Comments: PATIENT WAS FASTINGPERFORMED BY: [facility] [facility] FoodsTr[facility] [id number] Information: [id number] (46677) Immature Grans (Abs) 0.0 {x10E3/uL} (Normal) Range: [...] PANEL, COMPREHENSIVE Comments: PATIENT WAS FASTINGPERFORMED BY: LabCo[facility] CenterXyibkc[address] [id number] (69121) ALT (SGPT) 15 [iU]/L (Normal) Range: 0-32 [...] (Abnormal) Range: 65-99 :29 HgA1C , Office (78344) HgA1C , Office 5.4 % (Normal) Range: [...] CHOL 150 mg/dL (Normal) Comments: <200 mg/dL Hcrzrnady536-176 mg/dL Borderline>240 mg/dL High Risk :50 HgA1C , Office (25867) HgA1C , Office 5.8 % (Normal) Range: [...] [facility]. Approximately 10% of breast cancers are not detected by mammography. Anormal mammogram should not delay biopsy of a clinically suspiciousabnormality. Signed:Mele Santiago [facility] 2012 at 9:19:01 AM [id number] Signed GP/GP If you are the referring physician and would like to consult with theradiologist who provided this interpretation, please conta ct GabrielePedicelli, M.D. at [phone]. If this radiologist is unavailable, youwill be directed to another radiologist to assist. If you are a patient with a question regarding this report, pleaseco ntactyour referring physician directly. Professional Interpretation Provided By: [employer] [place], Phone , These documents contain legally protected [...] on 06/15/13920 Sign by: Prashant Delgadillo MD 28-Rei-77400:27 THYROID Radiology Report See Note Comments: STUDY: [...] Delgadillo M.D.June 15, 2013 at 2:56:26 PM [id number] Signed GP/GP If you are the referring physician and would like to consult with theradiologist who provided this interpretation, please contact Sarmad Bonilla at [phone]. If this radiologist is unavailable, youwill be directed to another radiologist to assist. If you are a patient with a question regarding this report, pleasecontactyour referring physician directly. Profes sional Interpretation Provided By: [employer] [place], Phone , These documents contain legally protected [...] 06/15/13 1733 Sign by: Prashant Delgadillo MD 6-Hoa-292296:18 URINE GENESIS CULTURE-NITA COL Comments: PATIENT NOT FASTINGPERFORMED BY: [facility] Jkwmip[address] [id number] Information: SRC: [id number] COUNT (79987) Antimicrobial MIHEAD (Normal) Comments: S = Susceptible; [...] primarily for treating urinary tract infections. (CLSI, Q191-R54,2009) Urine Culture,Comprehensive Final report (Normal) 04-Jun-20138:48 Urinalysis, Office (77031) UA - LEUKOCYTE ESTERASE Large (Normal) UA - NITRITE Positive (Normal) URINE UROBILINGN NITA TIMED 2 mg/dL (Normal) UA - PROTEIN Negative mg/dL (Normal) UA - BLOOD Negative (Normal) UA - KETONES Moderate mg/dL (Normal) UA - BILIRUBIN Moderate (Normal) UA - GLUCOSE Small mg/dL (Normal) 38-Lbs-19310:06 MICROALBUMIN: CREATININE RATIO Comments: PATIENT WAS FASTINGPERFORMED BY: [employer] Akmeyt[address] [id number] (54024) AND (68813) Microalb/Creat Ratio 27.4 {mg/g_creat} (Normal) Range: 0.0-30.0 Microalbumin, Urine 85.2 ug/mL (Abnormal) Range: 0.0-17.0 Creatinine, Urine 311.1 mg/dL (Abnormal) Range: 15.0-278.0 78-Eyv-93480:06 METABOLIC PANEL, Comments: PATIENT WAS FASTINGPERFORMED BY: [employer] Skjrja[address] [id number] Information: ADD [id number] AND DRAW FEE 99 6568 COMPREHENSIVE (75965) ALT (SGPT) 29 [iU]/L (Normal) Range: 0-32 [...] Glucose, Serum 76 mg/dL (Normal) Range: 65-99 81-Tnp-76851:06 TSH (97330) Comments: PATIENT WAS FASTINGPERFORMED BY: [place] [id number] [id number] TSH 3.040 {uIU/mL} (Normal) Range: 0.450-4.500 :06 LIPID PANEL (63382) Comments: PATIENT WAS FASTINGPERFORMED BY: [address] [id number] LDL/HDL Ratio 2.4 {ratio_units} (Normal) Range: 0.0-3.2 HDL Cholesterol 55 mg/dL (Normal) Comments: According to ATP-III Guidelines, HDL-C >59 mg/dL is considered anegative risk factor for CHD. LDL Cholesterol Calc 134 mg/dL (Abnormal) Range: 0-99 VLDL Cholesterol Ramandeep 18 mg/dL (Normal) Range: 5-40 Cholesterol, Total 207 mg/dL (Abnormal) Range: 100-199 Triglycerides 89 mg/dL (Normal) Range: 0-149 :06 PLTHL-BEDJUKJMQTQ-NSHUW (18614) Comments: PATIENT WAS FASTINGPERFORMED BY: [address] [id number] AFP, Serum, Tumor Marker 5.4 ng/mL (Normal) Range: 0.0-8.3 Comments: Khanh ECLIA methodology :06 PTT (Activated Partial Comments: PATIENT WAS FASTINGPERFORMED BY: [address] [id number] Thromboplastin Time) (52592) aPTT 27 {sec} (Normal) Range: 24-33 Comments: This test has not been validated for monitoring unfractionated heparintherapy. aPTT-based therapeutic ranges for unfractionated heparintherapy have not been established. For general guidelines onHeparin monitoring, refer to the [facility] Directory of Services. :06 PT (Prothrobim Time) (19391) Comments: PATIENT WAS FASTINGPERFORMED BY: [facility] [id number] INR 1.1 (Normal) Range: 0.8-1.2 Comments: Reference interval is for non-anticoagulated patients. . Suggested INR therapeutic range for Vitamin K anta gonist therapy: Standard Dose (moderate intensity therapeutic range): 2.0 - 3.0 Higher intensity therapeutic range 2.5 - 3.5 Prothrombin Time 11.0 {sec} (Normal) Range: 9.1-12.0 :51 HgA1C , Office (53351) HgA1C , Office 5.0 % (Normal) Range: [...] mg/dL (Normal) Range: 70-110 :03 Rapid Flu (61627 x 2) Influenza A Ag positive b (Normal) :27 METABOLIC PANEL, COMPREHENSIVE Comments: PATIENT WAS FASTINGPERFORMED BY: [facility]Co[facility] CenterJvfaqs[address] [id number] (89455) ALT (SGPT) 25 [iU]/L (Normal) Range: 0-32 [...] mg/dL (Normal) Range: 65-99 :27 LIPID PANEL (92297) Comments: PATIENT WAS FASTINGPERFORMED BY: [employer] [address] [id number] LDL/HDL Ratio 0.9 {ratio_units} (Normal) Range: 0.0-3.2 LDL Cholesterol Calc 29 mg/dL (Normal) Range: 0-99 VLDL Cholesterol Ramandeep 17 mg/dL (Normal) Range: 5-40 HDL Cholesterol 32 mg/dL (Abnormal) Comments: According to ATP-III Guidelines, HDL-C >59 mg/dL is considered anegative risk factor for CHD. Cholesterol, Total 78 mg/dL (Abnormal) Range: 100-199 Triglycerides 84 mg/dL (Normal) Range: 0-149 :27 TSH (30310) Comments: PATIENT WAS FASTINGPERFORMED BY: [facility] [address] [id number] TSH 3.990 {uIU/mL} (Normal) Range: 0.450-4.500 :27 CBC WITH MANUAL DIFF Comments: PATIENT WAS FASTINGPERFORMED BY: [facility] CenterHfgnod[address] [id number] Information: [id number] (11726) Immature Grans (Abs) 0.0 {x10E3/uL} Range: 0.0-0.1 [...] Comments: Khanh ECLIA methodologyPerformed at: - [facility] [address] [id number] Director: Manuelito Mendez PhD, Phone: [phone] 55-Ypu-25749:39 CBCMD ANC 2.4 3/uL (Normal) Range: 2.0-7.7 [...] CHOL 130 mg/dL (Normal) Comments: <200 mg/dL Oxfobeiqi362-475 mg/dL Borderline>240 mg/dL High Risk :39 MIACRE tMICROCREAT 16.5 {mg/g_CRE} (Normal) MIALB 23.3 mg/L (Normal) CREU 141.0 mg/dL (Normal) :39 PT INR 1.1 (Normal) PTP 13.6 s (Normal) Range: 11.9-14.4 :39 PTT PTTP 29.5 s (Normal) Range: 24.1-36.2 :17 Rapid Flu (97114 x 2) Influenza A Ag neg (Normal) :29 HgA1C , Office (00184) HgA1C , Office 5.9 % (Normal) Range: 4.6 - 7.1 :53 FT3 2.9 pg/mL (Normal) Range: 2.18-3.98 :53 T4F 1.26 ng/dL (Normal) Range: 0.76-1.46 :53 TPO 8 {IU/mL} (Normal) Range: 0-34 Comments: Performed at: - [facility] [address] [id number] Director: Codi Robles MD, Phone: [phone] 75-Pmz-919152:53 TSH 1.23 {uIU/mL} (Normal) Range: 0.358-3.74 :04 HgA1C , Office (16934) HgA1C , Office 5.8 % (Normal) Range: 4.6 - 7.1 :26 CBCMD Comments: ORDERED TSH LIPID CMP CBCMD [facility]DR.JACINDA ORDERED VITD CMP CBCD RBCM NORM [...] :26 LIPID Comments: ORDERED TSH LIPID CMP [facility] ENRI[facility] ORDERED VITD CMP CBCD VLDL [...] {uIU/mL} (Normal) Comments: ORDERED TSH LIPID CMP [facility]ITALEVELIN ORDERED VITD CMP CBCD Range: 0.358-3.74 :26 VITD 44.8 ng/mL (Normal) Comments: ORDERED TSH LIPID CMP [facility]PITALEVELINKI ORDERED VITD CMP CBCD Range: 30.0-100.0 Comments: Vitamin D deficiency has been defined by the [place] and an Endocrine Society practice guideline as alevel of serum 25-OH vitamin D less than 20 ng/mL (1,2).The Endocrine Society went on to further define vitamin Dinsufficiency as a level between 21 and 29 ng/mL (2).1. IOM ([place] [employer]). 2010. Dietary reference intakes for calcium and D. [place]: The National Academies Press.2. Sami MF, Sophie MOORE, Xiomara LARES, et al. Evaluation, treatment, and prevention of vitamin D deficiency: an Endocrine Society clinical practice guideline. JCEM. 2010; 96(7): 1911-30.Performed at: [address] [id number] Director: Codi Robles MD, Phone: [phone] 27-Jan-20128:02 BILAT SCRN DIGITAL & CAD Radiology [...] Signed GP/GP Professional Interpretat ion Provided By: [facility] RadiologyB[facility], , To consult with a radiologist regarding this report, please call our [id number] line @ Dicta dani on 01/27/12 0813 by Faustina KING,GabrieleTranscribed on 01/27/12 0950 by ITS IMPORTSign by Faustina KING,Prashant on 01/27/12 0951 Sign by: Prashant Delgadillo MD 57-Phn-364903:24 HgA1C , Office (46672) HgA1C , Office 5.7 % (Normal) Range: 4.6 - 7.1 75-Zro-953700:24 Blood Glucose , Office (94418) Blood Glucose , Office 89 (Normal) 78-Dwr-343160:31 Urinalysis, Office (20640) UA - LEUKOCYTE ESTERASE Small (Normal) UA - NITRITE Positive (Normal) URINE UROBILINGN NITA TIMED Normal mg/dL (Normal) UA - PROTEIN 300 mg/dL (Normal) UA - PH 6.0 (Normal) UA - SPECIFIC GRAVITY 1.025 (Normal) UA - KETONES Small mg/dL (Normal) UA - BILIRUBIN Moderate (Normal) UA - GLUCOSE Negative (Normal) :15 HgA1C , Office (94509) HgA1C , Office 6.8 % (Normal) Range: 4.6 - 7.1 :15 Blood Glucose , Office (06653) Blood Glucose , Office 162 (Normal) 68-Jzz-366107:22 THYROID Radiology Report See Note (Normal) Comments: [...] 09/08/11 1330 Sign by: Prashant Delgadillo MD 09-Bkl-67298:59 COMP METABOLIC GAP 9 (Normal) Range: 5-15 [...] COL Comments: PATIENT NOT FASTINGPERFORMED BY: [facility] Ejtcjd[address] [id number] Information: SRC:UR [id number] COUNT (16273) Antimicrobial MIHEAD (Normal) Comments: S = Susceptible; [...] Final report Culture,Comprehensive (Normal) :32 Urinalysis, Office (89613) UA - LEUKOCYTE ESTERASE Moderate (Normal) URINE UROBILINGN NITA TIMED Normal mg/dL (Normal) UA - PROTEIN 100 mg/dL (Normal) UA - PH 6.0 (Normal) UA - BLOOD Hemolyzed Large (Normal) UA - SPECIFIC GRAVITY 1.025 (Normal) UA - KETONES Negative mg/dL (Normal) UA - BILIRUBIN Negative (Normal) UA - GLUCOSE Negative (Normal) :28 Blood Glucose , Office (53168) Blood Glucose , Office 223 (Normal) :10 Urinalysis, Office (13834) UA - BILIRUBIN Small (Normal) UA - BLOOD Hemolyzed Large (Normal) UA - GLUCOSE Small (Normal) Comments: 100 UA - KETONES Negative mg/dL (Normal) UA - LEUKOCYTE ESTERASE Trace (Normal) UA - NITRITE Positive (Normal) UA - PH 5.0 (Normal) UA - PROTEIN 300 mg/dL (Normal) UA - SPECIFIC GRAVITY 1.020 (Normal) URINE UROBILINGN NITA TIMED 2 mg/dL (Normal) 2-Pzm-658080:29 URINE GENESIS CULTURE-NITA COL Comments: PATIENT NOT FASTINGPERFORMED BY: [facility] Uminys[address] [id number] Information: SRC:UR [id number] COUNT (19868) Antimicrobial MIHEAD (Normal) Comments: S = Susceptible; [...] mL (Normal) Urine Final report (Normal) Culture,Comprehensive 6-Ujd-173179:31 Urinalysis, Office (26304) UA - BILIRUBIN Large (Normal) UA - [...] (Abnormal) Range: 0.358-3.74 :28 HgA1C , Office (54507) HgA1C , Office 8.3 % (Abnormal) Range: 4.6 - 7.1 :28 Blood Glucose , Office (55903) Blood Glucose , Office 176 (Normal) :24 [...] 200-240 mg/dL Borderline >240 mg/dL High Risk 53-Elt-766631:54 BRAIN/HEAD W/WO CONTRAST Radiology See Note Comments: [...] Prashant Delgadillo MD :44 HgA1C , Office (42227) HgA1C , Office 7.4 % (Abnormal) Range: 4.6 - 7.1 :44 Blood Glucose , Office (96869) Blood Glucose , Office 206 (Normal) :37 [...] Report See Note (Normal) Comments: Exam Number: [id number] AMMOGRAPHY - BILATERAL SCREENING INDICATION:Routine annual screening [...] attaching a ResultCode to this exam. ADDENDUM: [id number] HPBI/MDS Reported By: PRASHANT DELGADILLO :14 HgA1C , Office (86465) HgA1C , Office 7.0 % (Normal) Range: 4.6 - 7.1 :14 Blood Glucose , Office (67088) Blood Glucose , Office 164 (Normal) :30 LASHA DIR SEMI-QL LASHA DIRECT 24 AU/mL (Normal) :30 ANTI-dsDNA AB 10 {IU/mL} (Normal) :30 TSH 6.39 {uIU/mL} (Abnormal) Range: 0.358-3.74 74-Clq-000724:35 C-REACTIVE PROTEIN (45747) Comments: PATIENT NOT FASTINGPERFORMED BY: [facility] CenterStxhnb[address] [id number] C-Reactive Protein, Quant 6.5 mg/L (Abnormal) Range: 0.0-4.9 06-Qpy-879776:35 SED RATE ERYTHROCYTE (32850) Comments: PATIENT NOT FASTINGPERFORMED BY: [facility] [id number] Sedimentation Rate-Westergren 14 mm/h (Normal) Range: 0-20 84-Xgo-431892:35 RHEUMATOID FACTOR-QUANT (00754) Comments: PATIENT NOT FASTINGPERFORMED BY: [facility] [id number] RA Latex Turbid. 7.6 {IU/mL} (Normal) Range: 0.0-13.9 79-Huq-286122:35 LASHA (ANTINUCLEAR ANTIBODY) Comments: PATIENT NOT FASTINGPERFORMED BY: [facility] [id number] (70027) LASHA Direct Positive (Abnormal) :35 T3, FREE (TRIDOTHYRONINE) (05176) Comments: PATIENT NOT FASTINGPERFORMED BY: [facility] [id number] Triiodothyronine,Free,Serum 2.8 pg/mL (Normal) Range: 2.0-4.4 35-Vkb-638614:35 T4, FREE (THYROXINE) (51597) Comments: PATIENT NOT FASTINGPERFORMED BY: [facility] [id number] T4,Free(Direct) 0.76 ng/dL (Abnormal) Range: 0.82-1.77 43-Caq-037350:35 Anti-TPO Antibody (39166) Comments: PATIENT NOT FASTINGPERFORMED BY: [facility] [id number] Thyroid Peroxidase (TPO) Ab <6 {IU/mL} (Normal) Range: 0-34 55-Jqy-039135:35 TSH (87792) Comments: PATIENT NOT FASTINGPERFORMED BY: [facility] [id number] TSH 5.630 {uIU/mL} (Abnormal) Range: 0.450-4.500 Comments: Please note reference interval change 78-Dok-442838:35 METABOLIC PANEL, Comments: PATIENT NOT FASTINGPERFORMED BY: [facility] Mkvytr1609 [address] [facility] [id number] Information: [id number] COMPREHENSIVE (26901) ALT (SGPT) 55 [iU]/L (Abnormal) Range: 0-40 [...] Glucose, Serum 151 mg/dL (Abnormal) Range: 65-99 24-Yuc-774541:02 GENESIS CULTURE-OTHER (72731) Comments: PATIENT NOT FASTINGPERFORMED BY: REINALDO [facility] Znctyd1014 [facility] [id number] Information: SRC:THRT [id number] Result 1 Yeast isolated. (Normal) Comments: Moderate growthRequest for further identification must be madewithin 1 week. Upper Respiratory Culture Final report (Normal) 84-Xdi-68168:37 Rapid Strep Test, Office (65744) Rapid Strep Test, Office Negative (Normal) 85-Nwg-735823:11 THYROID (HP) Radiology Report See Note (Normal) Comments: Exam Number: [id number] CLINICAL:This is a 45-year-old female patient with [...] CHOL 147 mg/dL (Normal) Comments: <200 mg/dL Vcoemudue170-387 mg/dL Borderline>240 mg/dL High Risk HDL 32 [...] :41 TSH 4.85 {uIU/mL} (Abnormal) Range: 0.358-3.74 98-Clw-293903:50 URINE GENESIS CULTURE-NITA COL Comments: PATIENT NOT FASTINGPERFORMED BY: [facility] Cqcyfd[address] [id number] Information: SRC:UR ADD [id number] COUNT (12623) Result 1 Klebsiella pneumoniae Comments: 1,000 Colonies/mL [...] STrimethoprim/Sulfa S Urine Final report (Normal) Culture,Comprehensive 36-Ajb-27008:55 Urinalysis, Office (98026) UA - LEUKOCYTE ESTERASE Small (Normal) UA - NITRITE Negative (Normal) URINE UROBILINGN NITA TIMED Normal mg/dL (Normal) UA - PROTEIN 30 mg/dL (Normal) UA - PH 6.0 (Normal) UA - BLOOD Negative (Normal) UA - SPECIFIC GRAVITY 1.020 (Normal) UA - KETONES Negative mg/dL (Normal) UA - BILIRUBIN Negative (Normal) UA - GLUCOSE Negative (Normal) 8-Xcr-218734:37 PET/CT,TUMOR,BASE-THIGH,SUBS Radiology Report See Note (Normal) Comments: Exam Number: [id number] EXAM: Body PET study Head to Mid [...] 44:398P, 2003). w Reported By: ADELA MOLINA 4-Tgm-455096:00 PRANEETH+ELPU24 3467 ALBUMIN,U 37.7 % (Normal) QPIET-7-FDWT,U 3.2 % (Normal) XNJWM-0-ETAF,U 7.6 % (Normal) BETA GLOB,U 23.1 % (Normal) GAMMA GLOB,U 28.5 % (Normal) PRANEETH RESULT,U Comment (Normal) Comments: No monoclonality detected. M-SPIKE,UR% SeeNote % (Normal) Comments: Result: Not Observed PROTEIN, U24 62.1 {mg/24_hr} Range: 30.0-150.0 (Normal) PROTEIN,UR 2.3 mg/dL (Normal) Range: 0.0-15.0 4-Chv-824113:15 C-REACTIVE PROT < 2.90 mg/L (Normal) Range: 0.0-3.0 Comments: C-Reactive Protein (CRP) provides useful information for thediagnosis, therapy and monitoring of inflammatory processesand associated diseases. For the evaluation of Relative Riskfor Cardiovascular Dise ase, a High Sensitivity CRP (HSCRP)should be ordered. 9-Bal-213338:15 CBCD,SMEAR DIFF PLT EST SeeNote (Normal) Comments: [...] 4.2-5.4 WBC 4.3 K/mm3 (Abnormal) Range: 4.4-11.0 5-Yfo-929089:15 COMP METABOLIC CL 104 mmol/L (Normal) Range: [...] <126 mg/dLsuggests IMPAIRED HOMEOSTASIS per A.D.A. criteria. 9-Umu-694072:15 ESR SED RATE 11 mm/h (Normal) Range: 0-20 9-Jay-543949:15 LDH 197 U/L (Abnormal) Range: 100-190 3-Kaf-742891:15 LIPID HDL 30 mg/dL (Abnormal) Comments: Reference [...] CHOL 154 mg/dL (Normal) Comments: <200 mg/dL Jbvlzsepe021-305 mg/dL Borderline>240 mg/dL High Risk 7-Fpk-736532:15 PROT.[id number] NOTE Comment (Normal) Comments: Protein electrophoresis scan will follow via computer,mail, or fringe knotter delivery.Performed at: [facility] Lab[address] [id number] Director: Kamlesh Arana MD ALBUMIN,UR 54.2 % (Normal) JNUDC-3-AMLJ,U 1.2 % (Normal) ORXNN-8-PWLX,U 9.4 % (Normal) BETA GLOB,U 23.4 % (Normal) GAMMA GLOB,U 11.8 % (Normal) M-SPIKE,U SeeNote % (Normal) Comments: Result: Not Observed PROTEIN,UR 13.6 mg/dL (Normal) Range: 0.0-15.0 2-Xsc-432682:15 SPE [id number] A/G RATIO 1.8 (Normal) Range: 0.7-2.0 GLOBULIN, [...] electrophoresis scan will follow via computer,mail, or fringe knotter delivery. M-SPIKE SeeNote g/dL (Normal) Comments: Result: Not Observed GAMMA GLOBULIN 0.4 g/dL (Abnormal) Range: 0.5-1.6 ALBUMIN 3.9 g/dL (Normal) Range: 3.2-5.6 ALPHA-1 GLOBUL 0.2 g/dL (Normal) Range: 0.1-0.4 ALPHA-2 GLOBUL 0.7 g/dL (Normal) Range: 0.4-1.2 BETA GLOBULIN 0.9 g/dL (Normal) Range: 0.6-1.3 PROTEIN,TOTAL 6.1 g/dL (Normal) Range: 6.0-8.5 84-Gfk-942482:28 BRAIN/HEAD WITHOUT CONTRAST Radiology Report See Note (Normal) Comments: Exam Number: [id number] CT SCAN OF BRAIN HISTORYLytic lesion, lymphoma. Scans were obtained at 2.5-mm intervals through the posterior fossaand 5-mm intervals through the remainder of the brai n. [facility] entstudy is compared to the examination [...] for confirmation. Reported By: TRUE NAGEL M.D. 90-Jkm-281789:23 SPINE,CERVICAL WITHOUT CONTRAS Radiology Report See Note (Normal) Comments: Exam Number: [id number] CLINICAL:44 year old female with cervical radiculopathy. [...] tumor involvement. Reported By: SHARYN JASMINE M.D. 66-Vjm-027470:50 Blood Glucose , Office (23502) Blood Glucose , Office 105 (Normal) 47-Dva-021916:50 HgA1C , Office (19035) HgA1C , Office 6.1 % (Normal) Range: 4.6 - 7.1 88-Wlp-746617:24 URINE GENESIS CULTURE-NITA COL Comments: PATIENT NOT FASTINGPERFORMED BY: REINALDO [facility] Esqrvt[address] [id number] Information: SRC:INGRID [id number] COUNT (16833) Antimicrobial MIHEAD (Normal) Comments: S = Susceptible; [...] mL (Normal) Urine Final report (Normal) Culture,Comprehensive 12-Vox-338992:41 Urinalysis, Office (23139) UA - LEUKOCYTE ESTERASE Large (Normal) UA - NITRITE Negative (Normal) URINE UROBILINGN NITA TIMED Normal mg/dL (Normal) UA - PROTEIN 100 mg/dL (Normal) UA - PH 5.0 (Normal) UA - BLOOD Hemolyzed Large (Normal) UA - SPECIFIC GRAVITY 1.025 (Normal) UA - KETONES Negative mg/dL (Normal) UA - BILIRUBIN Negative (Normal) UA - GLUCOSE Negative (Normal) 6-Hsr-235668:19 BLOOD GAS, O2 SAT ONLY - INITL Radiology Report See Note (Normal) Comments: Exam Number: [id number] Procedure completed. Please see MEDICAL RECORDS reports in PCI - OP - OP NOTE LET - LETTER. Reported By: BOONE CH M.D. 6-Mwe-190839:19 BLOOD GAS, O2 SAT ONLY - SUBSQ Radiology Report See Note (Normal) Comments: Exam Number: [id number] Procedure completed. Please see MEDICAL RECORDS reports in PCI - OP - OP NOTE LET - LETTER. Reported By: BOONE CH M.D. 4-Ohi-886772:19 BLOOD GAS, O2 SAT ONLY - SUBSQ Radiology Report See Note (Normal) Comments: Exam Number: [id number] Procedure completed. Please see MEDICAL RECORDS reports in PCI - OP - OP NOTE LET - LETTER. Reported By: BOONE CH M.D. 04-Aug-20096:45 RHC/LHC/CORS/LV Radiology Report See Note (Normal) Comments: Exam Number: [id number] Procedure completed. Please see MEDICAL RECORDS reports [...] MIXED GRAM POSITIVE ORGANISMS :58 Urinalysis, Office (74464) UA - BILIRUBIN Negative (Normal) UA - BLOOD Negative (Normal) UA - GLUCOSE Negative (Normal) UA - KETONES Negative mg/dL (Normal) UA - LEUKOCYTE ESTERASE Small (Normal) Comments: aw UA - NITRITE Negative (Normal) UA - PH 6.0 (Normal) UA - PROTEIN Negative mg/dL (Normal) UA - SPECIFIC GRAVITY 1.010 (Normal) URINE UROBILINGN NITA TIMED Normal mg/dL (Normal) :53 HgA1C , Office (09582) HgA1C , Office 5.7 % (Normal) Range: 4.6 - 7.1 :53 Blood Glucose , Office (29192) Blood Glucose , Office 133 (Normal) :24 [...] (Normal) Range: 6.4-8.2 :53 HgA1C , Office (81978) HgA1C , Office 10.0 % (Abnormal) Range: 4.6 - 7.1 :53 Blood Glucose , Office (06309) Blood Glucose , Office 410 (Normal) :46 [...] 11.6-14.6 WBC 4.0 K/mm3 (Abnormal) Range: 4.4-11.0 7-Plk-821564:46 COMP METABOLIC A/G 1.2 {RATIO} (Normal) Range: [...] 200 mg/dLsuggests DIABETES MELLITUS per A.D.A. criteria. 4-Yfb-372829:46 D BILI 0.12 mg/dL (Normal) Range: 0.00-0.30 0-Qgw-336471:46 LIPID CHOL 158 mg/dL (Normal) Comments: <200 [...] mg/L (Normal) UR CREAT 186.7 mg/dL (Normal) 39-Rke-427677:11 LIPID Comments: PATIENT NOT FASTING/DEMANDED TO BE [...] T PROT 6.4 g/dL (Normal) Range: 6.4-8.2 91-Qjm-396288:23 Urinalysis, Office (49974) Comments: done BC UA - BILIRUBIN Negative (Normal) UA - BLOOD Hemolyzed Large (Normal) UA - GLUCOSE Large (Normal) Comments: > 1000mg/dL UA - KETONES Negative mg/dL (Normal) UA - LEUKOCYTE ESTERASE Moderate (Normal) UA - NITRITE Negative (Normal) UA - PH 6.0 (Normal) UA - PROTEIN 30 mg/dL (Normal) UA - SPECIFIC GRAVITY 1.010 (Normal) URINE UROBILINGN NITA TIMED Normal mg/dL (Normal) [id number] MYOCARD PERF SPECT REST/STRESS Radiology Report See Note (Normal) Comments: Exam Number: [id number] MYOCARDIAL PERFUSION SCAN TECHNIQUEThe patient was injected [...] of 37%. Reported By: NOE MORRIS M.D. [id number] SPINE, LUMBAR W/W/O CONTRAST Radiology Report See Note (Normal) Comments: Exam Number: [id number] MAGNETIC RESONANCE IMAGING OF THE LUMBAR SPINE [...] other abnormality. Reported By: SUSAN GOMEZ M.D. [id number] CULTURE, URINE URINE CULTURE See Note {CFU/mL} (Normal) Comments: COLONY COUNT 25,000-50,000 ORGANISM 1: MIXED GRAM POSITIVE ORGANISMS [id number] Urinalysis, Office ([id number]) UA - LEUKOCYTE ESTERASE Small (Normal) Comments: aw UA - NITRITE Negative (Normal) UA - PH 5.0 (Normal) UA - PROTEIN Negative mg/dL (Normal) URINE UROBILINGN NITA TIMED Normal mg/dL (Normal) UA - BILIRUBIN Negative (Normal) UA - BLOOD Negative (Normal) UA - GLUCOSE Negative (Normal) UA - KETONES Negative mg/dL (Normal) UA - SPECIFIC GRAVITY 1.025 (Normal) 56-Tim-592474:09 Blood Glucose , Office (30499) Blood Glucose , Office 231 (Normal) 48-Pby-343810:09 HgA1C , Office (89888) HgA1C , Office 7.1 % (Normal) Range: [...] for patient's is the eGFRmultiplied by 1.212. [facility] Laboratory uses the abbreviated Modification [...] Disease W/O Kidney Disease>/= 90 Stage One Ylocek69 - 89 Stage Two Suspect Decreased GFR30 [...] T PROT 6.5 g/dL (Normal) Range: 6.4-8.2 95-Nch-290118:42 LIPID CHOL 182 mg/dL (Normal) Comments: <200 [...] mg/dL VLDL 36 mg/dL (Normal) Range: 5-40 29-Bng-634407:42 MICROALB:CRE UR MALB:CREAT 35.4 {mg/g_CRE} (Abnormal) MICROALBUMIN,UR 54.7 mg/L (Normal) UR CREAT 154.6 mg/dL (Normal) 89-Ddz-285065:42 TSH 2.57 {uIU/mL} (Normal) Range: 0.34-4.82 :40 CULTURE, URINE URINE CULTURE See Note {CFU/mL} (Normal) Comments: COLONY COUNT 1000-10,000 ORGANISM 1: MIXED GRAM POS & NEG ORGANISMS 37-Fro-718348:36 Urinalysis, Office (32923) UA - BILIRUBIN Negative (Normal) UA - [...] POS & NEG ORGANISMS :12 Urinalysis, Office (31797) UA - BILIRUBIN Negative (Normal) UA - BLOOD Negative (Normal) UA - GLUCOSE Negative (Normal) UA - KETONES Negative mg/dL (Normal) UA - LEUKOCYTE ESTERASE Small (Normal) UA - NITRITE Negative (Normal) UA - PH 6.0 (Normal) UA - PROTEIN Negative mg/dL (Normal) UA - SPECIFIC GRAVITY 1.005 (Normal) URINE UROBILINGN NITA TIMED Normal mg/dL (Normal) 29-Mbx-070840:08 CBCD,SMEAR DIFF CELLS COUNTED 100 (Normal) EOS [...] 47-70 WBC 5.1 K/mm3 (Normal) Range: 4.4-11.0 51-Cbw-804012:08 COMP METABOLIC A/G 1.5 {RATIO} (Normal) Range: [...] Range: 0.34-4.82 :28 Blood Glucose , Office (97923) Blood Glucose , Office 124 (Normal) :28 HgA1C , Office (10955) HgA1C , Office 6.1 % (Normal) Range: 4.6 - 7.1 :38 CERULOPLAS 1560 21.3 mg/dL (Normal) Range: 17.9-53.3 Comments: Performed At: [facility] [place] [address] [id number] :[id number] FERRITIN 189 ng/mL (Normal) Range: 8-252 :38 HEP-ABC 764515 HB CORE [id number] SeeNote (Normal) Comments: Result: Negative HB SURF [...] Please note reference interval change HEP A AB,T.5474 SeeNote (Normal) Comments: Result: Negative HEP A IgM 6734 SeeNote (Normal) Comments: Result: Negative HEP B CORE,TOT SeeNote (Normal) Comments: Result: Negative HVC Ab <0.1 (Normal) Range: 0.0-0.9 Comments: NegativeNot infected with HCV, unless recent infection issuspected or other evidence exists to indicate HCVinfection. AMENDED REPORT 05/21/081907 HVC Ab previously reported as: RIBA RESULT <TEST NOT PERFORMED> (Normal) 50-Pev-447416:38 LIVER ALB 3.5 g/dL (Normal) Range: 3.4-5.0 ALK P 162 U/L (Abnormal) Range: 50-136 ALT 50 U/L (Normal) Range: 30-65 AST 21 U/L (Normal) Range: 15-37 D BILI 0.05 mg/dL (Normal) Range: 0.00-0.30 T BILI 0.38 mg/dL (Normal) Range: 0.00-1.00 T PROT 6.5 g/dL (Normal) Range: 6.4-8.2 13-Mhh-498489:38 MITOCHN AB 6650 <20.0 {Units} (Normal) Range: [...] T PROT 6.5 g/dL (Normal) Range: 6.4-8.2 5-Pyi-859297:02 THYROID (HP) Radiology Report See Note (Normal) Comments: Exam Number: [id number] THYROID ULTRASOUND HISTORYThyromegaly. High-resolution, real-time linear images [...] is recommended. Reported By: TRUE NAGEL M.D. 57-Itx-548677:05 Blood Glucose , Office (75268) Blood Glucose , Office 135 (Normal) 51-Aks-807919:05 HgA1C , Office (30288) HgA1C , Office 5.6 % (Normal) Range: 4.6 - 7.1 34-Hrs-57503:02 CBCD,SMEAR DIFF ANISO 1+ (Normal) CELLS COUNTED [...] Report See Note (Normal) Comments: Exam Number: [id number] CT BRAIN WITHOUT AND WITH INTRAVENOUS CONTRAST [...] clinically warranted. Reported By: AIDAN MASON M.D. 54-Pms-543603:30 CBCD Comments: CALL [phone] TO [phone] BASO% 0.8 % (Normal) Range: 0-1 EO% [...] Range: 4.4-11.0 :30 COMP METABOLIC Comments: CALL [phone] TO [phone] A/G 1.5 {RATIO} (Normal) Range: 0.9-2.4 ALB [...] T PROT 5.9 g/dL (Abnormal) Range: 6.4-8.2 67-Yad-207143:30 LDH 206 U/L (Abnormal) Comments: CALL [phone] TO [phone] Range: 100-190 :30 URIC 5.7 mg/dL (Normal) Comments: CALL [phone] TO [phone] Range: 2.6-6.0 :30 CULT, DP WOUND Comments: [...] mg/dL (Abnormal) Range: 40-230 Comments: Performed At: [address] [id number] :[id number] LDH 211 U/L (Abnormal) Range: 100-190 [...] PT IN CATHLABPrecautions*: NOT APPLICABLE Range: 0.34-4.82 39-Yfa-607349:20 BMP Comments: COMMENTS: BED 13 FASTPrecautions*: NOT [...] K/mm3 (Abnormal) Range: 4.4-11.0 :30 AFB C&S [id number] Comments: Precautions*: CHEMO PRECAUTIONSSPECIMEN DESCRIPTION: #2 SAME [...] for testing. ec-2 BF/CSF (Normal) 0069 :30 09-Jlt-77241:30 FLUID P-FLU (Normal) Comments: OPERATION Not noted [...] DRAWN 07/22/06-TEST MISSED Range: 100-190 :51 SPE [id number] A/G RATIO 1.3 (Normal) Range: 0.7-2.0 ALBUMIN [...] Evidenceof monoclonal protein is not apparent.Performed At: [facility] [place] [address] [id number] M-SPIKE SeeNote (Normal) Comments: Result: Not Observed NOTE: Comment (Normal) Comments: Protein electrophoresis scan will follow via mail orcourier. PROTEIN,TOTAL 6.5 g/dL (Normal) Range: 6.0-8.5 :49 Blood Glucose , Office (62265) Blood Glucose , Office 84 (Normal) :49 HgA1C , Office (39937) HgA1C , Office 6.6 % (Normal) Range: [...] Paroxysmal tachycardia Planned Observations METABOLIC PANEL, BASIC (44294)Indication: CHF (congestive heart failure) On: 28-Mko-403780:05 Request CPK MB FRACTION (00166)Indication: SOB (shortness of breath) On: :21 Request Comments: stat ASSAY, TROPONIN, QUANTITATIVE (aka Troponin I) (01201)Indication: SOB (shortness of breath) On: :21 Request Comments: stat CBC W/AUTO DIFF WBC (10158)Indication: SOB (shortness of breath) On: :08 Request Comments: stat METABOLIC PANEL, COMPREHENSIVE (36011)Indication: SOB (shortness of breath) On: :08 Request Comments: stat D-Dimer (10847)Indication: SOB (shortness of breath) On: :08 Request Comments: stat BNTP (19476)Indication: SOB (shortness of breath) On: :08 Request Comments: stat CBC with auto diff (56524)Indication: Diabetes mellitus type II, controlled On: :03 Request LIPID PANEL (73644)Indication: Diabetes mellitus type II, controlled On: :03 Request METABOLIC PANEL, COMPREHENSIVE (15564)Indication: Diabetes mellitus type II, controlled On: :03 Request HGB A1C (48047)Indication: Diabetes mellitus type II, controlled On: :02 Request TSH (THYROID STIMULATING HORMONE) (21789)Indication: Acquired hypothyroidism On: :02 Request Metabolic Panel, Basic (63621)Indication: Hyponatremia On: 21-Bsy-519402:00 Request TSH (10084)Indication: Diabetes mellitus type II, controlled On: :48 Request Vitamin B-12 (cyanocobalamin) (06748)Indication: B12 deficiency On: :45 Request CBC WITH MANUAL DIFF (87487)Indication: B12 deficiency On: :45 Request T3, FREE (TRIDOTHYRONINE) (62959)Indication: Thyroid nodule On: :48 Request Comments: add to labs already drawn T4, FREE (THYROXINE) (10945)Indication: Thyroid nodule On: :47 Request Comments: add to labs already drawn Digoxin (49058)Indication: Cardiomyopathy On: :44 Request LIPID PANEL (11947)Indication: Mixed hyperlipidemia On: :43 Request TSH (72871)Indication: Acquired hypothyroidism On: :43 Request Vitamin D Hydroxy (51551)Indication: Vitamin D deficiency On: :43 Request IQTOW-XSPGLVHYUVI-KSKUG (30966)Indication: Fatty liver On: :42 Request VITAMIN B-12 (CYANOCOBALAMIN) (02643)Indication: Fatigue On: :42 Request URINALYSIS, W/ MICRO (15207)Indication: Diabetes mellitus type II, controlled On: :30 Request MICROALBUMIN: CREATININE RATIO (79554) AND (07686)Indication: Diabetes mellitus type II, controlled On: : Request CBC with auto diff (18108)Indication: Diabetes mellitus type II, controlled On: :29 Request METABOLIC PANEL, COMPREHENSIVE (93209)Indication: Diabetes mellitus type II, controlled On: :29 Request HGB A1C (25032)Indication: Diabetes mellitus type II, controlled On: 41-Ozf-624376:29 Request HEPATIC FUNCTION PANEL (66961)Indication: Elevated liver enzymes On: 0-Lfx-497610:38 Request Comments: do in hospital tuesday when get US Metabolic Panel, Comprehensive (92699)Indication: Epigastric pain On: 59-Wtx-520793:54 Request Sed Rate Erythrocyte (15631)Indication: Epigastric pain On: :54 Request CBC, Platelets & Auto Diff (48723)Indication: Epigastric pain On: :54 Request OVA & PARASITE DIR SMEAR (29447)Indication: Diarrhea On: :53 Request OCCULT BLOOD FECES SCREEN (12717)Indication: Diarrhea On: :53 Request LEUKOCYTE COUNT, FECAL (51671)Indication: Diarrhea On: :53 Request C-DIFFICILE, STOOL (82602)Indication: Diarrhea On: :53 Request GENESIS CULTURE-STOOL (28029)Indication: Diarrhea On: :53 Request Magnesium (02823)Indication: Fatigue On: 49-Dfb-629399:42 Request Vitamin B-12 (cyanocobalamin) (12360)Indication: Fatigue On: 81-Avy-854191:41 Request MICROALBUMIN: CREATININE RATIO (30492) AND (49776)Indication: Diabetes mellitus type II, controlled On: 07-Tub-123840:40 Request LIPID PANEL (90567)Indication: Mixed hyperlipidemia On: 25-Orp-493881:39 Request CBC W/AUTO DIFF WBC (85647)Indication: Fatty liver On: 09-Dti-961434:30 Request METABOLIC PANEL, COMPREHENSIVE (22264)Indication: Fatty liver On: 93-Zuk-597343:30 Request Vitamin D Hydroxy (36710)Indication: Vitamin D deficiency On: 51-Sav-386975:30 Request TSH (04308)Indication: Acquired hypothyroidism On: 30-Xko-005209:30 Request Digoxin (86735)Indication: Cardiomyopathy On: 21-Fmg-953095:29 Request LIPASE (74336)Indication: Epigastric pain On: :28 Request AMYLASE (30439)Indication: Epigastric pain On: 56-Zwi-632033:28 Request URINE GENESIS CULTURE-IDENTIFICATN (26098)Indication: Leukocytes in urine On: 27-Jty-614232:38 Request MICROALBUMIN: CREATININE RATIO (65450) AND (70636)Indication: Essential hypertension with goal blood pressure less than 130/80 On: :58 Request CBC W/AUTO DIFF WBC (51910)Indication: Essential hypertension with goal blood pressure less than 130/80 On: :58 Request METABOLIC PANEL, COMPREHENSIVE (26587)Indication: Essential hypertension with goal blood pressure less than 130/80 On: :58 Request MSNLI-CRHEIMJQGTH-GCPXG (14801)Indication: Abnormal tumor markers On: :57 Request Vitamin D Hydroxy (56840)Indication: Vitamin D deficiency On: :09 Request LIPOPROTEIN, BLD, BY NMR (36065)Indication: Mixed hyperlipidemia On: :09 Request CBC W/AUTO DIFF WBC (79542)Indication: Diabetes mellitus type II, controlled On: :09 Request METABOLIC PANEL, COMPREHENSIVE (60527)Indication: Diabetes mellitus type II, controlled On: :09 Request Potassium Serum (48981)Indication: Hypopotassemia On: 22-Ihc-393184:02 Request HGERA-PJTWHWABAWI-SLQVW (78903)Indication: Fatty liver On: :57 Request MICROALBUMIN: CREATININE RATIO (82268) AND (12389)Indication: Essential hypertension with goal blood pressure less than 130/80 On: :45 Request CBC W/AUTO DIFF WBC (87067)Indication: Essential hypertension with goal blood pressure less than 130/80 On: :45 Request METABOLIC PANEL, COMPREHENSIVE (93256)Indication: Essential hypertension with goal blood pressure less than 130/80 On: :45 Request Vitamin D Hydroxy (20166)Indication: Vitamin D deficiency On: :45 Request TSH (29352)Indication: Acquired hypothyroidism On: :45 Request LIPID PANEL (31566)Indication: Mixed hyperlipidemia On: :45 Request CBC W/AUTO DIFF WBC (35672)Indication: Diabetes mellitus type II, controlled On: :28 Request QWNMP-YKPPWZEMDFZ-FWHCG (30347)Indication: Fatty liver On: 15-Pvr-787505:03 Request METABOLIC PANEL, COMPREHENSIVE (71568)Indication: Mixed hyperlipidemia On: :55 Request LIPOPROTEIN, BLD, BY NMR (90075)Indication: Mixed hyperlipidemia On: :55 Request Metabolic Panel, Basic (16916)Indication: Hypopotassemia On: :55 Request Comments: 10 days CBC (AUTO) (29191)Indication: Uncontrolled type II diabetes mellitus On: : Request Vitamin D Hydroxy (39768)Indication: Vitamin D deficiency On: : Request MICROALBUMIN: CREATININE RATIO (01005) AND (17357)Indication: Uncontrolled type II diabetes mellitus On: 97-Yyy-211938:02 Request METABOLIC PANEL, COMPREHENSIVE (89118)Indication: Essential hypertension with goal blood pressure less than 130/80 On: 31-Qml-436020:02 Request TDAIV-NFQKMSZBCUK-HPADT (14854)Indication: Fatty liver On: : Request LIPID PANEL (91505)Indication: Mixed hyperlipidemia On: 27-Huk-270751: Request TSH (57305)Indication: Thyroid nodule On: : Request CBC W/AUTO DIFF WBC (79646)Indication: Uncontrolled type II diabetes mellitus On: :47 Request METABOLIC PANEL, COMPREHENSIVE (80010)Indication: Uncontrolled type II diabetes mellitus On: :47 Request LIPID PANEL (09480)Indication: Mixed hyperlipidemia On: :47 Request Vitamin D Hydroxy (16696)Indication: Vitamin D deficiency On: 12-Pil-946076:47 Request NKLER-FRWOGVWPQBR-THBHF (82468)Indication: Fatty liver On: :27 Request CBC W/AUTO DIFF WBC (55696)Indication: Uncontrolled type II diabetes mellitus On: :26 Request LIPID PANEL (13382)Indication: Mixed hyperlipidemia On: :25 Request MICROALBUMIN: CREATININE RATIO (15874) AND (51382)Indication: Uncontrolled type II diabetes mellitus On: :25 Request TSH (50044)Indication: Acquired hypothyroidism On: :25 Request METABOLIC PANEL, COMPREHENSIVE (65279)Indication: Essential hypertension with goal blood pressure less than 130/80 On: :25 Request Vitamin D Hydroxy (33286)Indication: Vitamin D deficiency On: :25 Request CALCIFEDIOL (32656)Indication: Vitamin D deficiency On: 46-Yge-097536:44 Request Comments: to be done Jun 2015 after done with ergocalciferol URINE GENESIS CULTURE (NITA COL COUNT) (81788)Indication: UTI (lower urinary tract infection) On: 1-Otc-682166:22 Request LIPID PANEL (56542)Indication: Mixed hyperlipidemia On: 3-Zbf-736177:15 Request CBC W/AUTO DIFF WBC (00972)Indication: Uncontrolled type II diabetes mellitus On: 4-Rpc-134338:14 Request METABOLIC PANEL, COMPREHENSIVE (55706)Indication: Uncontrolled type II diabetes mellitus On: 7-Vgy-673873:14 Request TSH (98719)Indication: Acquired hypothyroidism On: 9-Iqn-077222:14 Request SYLFU-UUHLLFKVZFG-VMDQU (53327)Indication: Fatty liver On: 2-Pwb-903481:14 Request CBC, Platelets & Auto Diff (53622)Indication: HX, PERSONAL, MALIGNANCY, LYMPHATIC NEC On: 05-Ulb-10294:07 Request CBC WITH MANUAL DIFF (95218)Indication: Abnormal glucose tolerance test On: :33 Request MICROALBUMIN: CREATININE RATIO (05513) AND (59337)Indication: Abnormal glucose tolerance test On: :33 Request LIPID PANEL (17931)Indication: Mixed hyperlipidemia On: :31 Request METABOLIC PANEL, COMPREHENSIVE (71932)Indication: Abnormal glucose tolerance test On: :31 Request URINE GENESIS CULTURE-NITA COL COUNT (68911)Indication: Dysuria On: 14-Pny-176567:03 Request RETICULOCYTE COUNT (24151)Indication: Anemia On: :37 Request Iron (19078)Indication: Anemia On: :37 Request Ferritin (46790)Indication: Anemia On: :37 Request CBC (Auto) (87196)Indication: Anemia On: :37 Request CBC, Platelets & Auto Diff (08598)Indication: Fever On: :03 Request Metabolic Panel, Comprehensive (38357)Indication: Fever On: :03 Request HgA1C , Office (35683)Indication: Abnormal glucose tolerance test On: 18-Ofj-13431:55 Request CBC WITH MANUAL DIFF (44285)Indication: Abnormal glucose tolerance test On: :53 Request METABOLIC PANEL, COMPREHENSIVE (39889)Indication: Abnormal glucose tolerance test On: :53 Request LIPID PANEL (95231)Indication: Mixed hyperlipidemia On: :53 Request JIJDR-ZDFMDTKUFKG-SOLVD (36415)Indication: Fatty liver On: :53 Request PTT (Activated Partial Thromboplastin Time) (30211)Indication: Fatty liver On: :53 Request PT (Prothrobim Time) (91451)Indication: Fatty liver On: :53 Request MICROALBUMIN: CREATININE RATIO (77380) AND (03893)Indication: Abnormal glucose tolerance test On: 12-Fik-251785:49 Request Anti-TPO Antibody (64603)Indication: Acquired hypothyroidism On: 14-Lhz-014535:14 Request Comments: 1 month TSH (44164)Indication: Acquired hypothyroidism On: 77-Pxn-957589:13 Request Comments: 1 month T4, FREE (THYROXINE) (69746)Indication: Acquired hypothyroidism On: :13 Request Comments: 1 month T3, FREE (TRIDOTHYRONINE) (03216)Indication: Acquired hypothyroidism On: 45-Oce-840505:13 Request Comments: 1 month CBC WITH MANUAL DIFF (95915)Indication: Abnormal glucose tolerance test On: :38 Request METABOLIC PANEL, COMPREHENSIVE (53733)Indication: Abnormal glucose tolerance test On: :38 Request LIPID PANEL (12975)Indication: Mixed hyperlipidemia On: :38 Request MICROALBUMIN: CREATININE RATIO (92974) AND (18523)Indication: Abnormal glucose tolerance test On: 77-Mqu-758344:56 Request CBC WITH MANUAL DIFF (20699)Indication: Elevated LFTs On: 05-Fia-162234:56 Request METABOLIC PANEL, COMPREHENSIVE (54424)Indication: Elevated LFTs On: 09-Guh-538281:56 Request LIPID PANEL (97113)Indication: Mixed hyperlipidemia On: 32-Kxu-518118:56 Request TSH (58161)Indication: Acquired hypothyroidism On: 46-Qnr-215926:56 Request CBC WITH MANUAL DIFF (51974)Indication: Essential hypertension with goal blood pressure less than 130/80 On: :34 Request TSH (56685)Indication: Acquired hypothyroidism On: :34 Request METABOLIC PANEL, COMPREHENSIVE (98912)Indication: Fatty liver On: :33 Request LIPID PANEL (17697)Indication: Mixed hyperlipidemia On: :33 Request MICROALBUMIN: CREATININE RATIO (98212) AND (16837)Indication: Uncontrolled type II diabetes mellitus On: :46 Request TSH (87580)Indication: Acquired hypothyroidism On: :46 Request LIPID PANEL (94893)Indication: Mixed hyperlipidemia On: 36-Hqp-00254:45 Request METABOLIC PANEL, COMPREHENSIVE (83269)Indication: Elevated LFTs On: :45 Request HgA1C , Office (27072)Indication: Uncontrolled type II diabetes mellitus On: :28 Request URINE GENESIS CULTURE-NITA COL COUNT (66935)Indication: Cystitis, acute On: :43 Request URINE GENESIS CULTURE-IDENTIFICATN (11848)Indication: Dysuria On: :10 Request CBC WITH MANUAL DIFF (36842)Indication: Headache On: 72-Shj-220372:56 Request METABOLIC PANEL, COMPREHENSIVE (72691)Indication: Headache On: 22-Vxk-084218:56 Request LIPID PANEL (56356)Indication: Mixed hyperlipidemia On: 31-Iau-791106:56 Request TSH (89283)Indication: Acquired hypothyroidism On: 72-Btb-778792:56 Request METABOLIC PANEL, COMPREHENSIVE (41618)Indication: Uncontrolled type II diabetes mellitus On: 22-Qod-697218:28 Request HEPATIC FUNCTION PANEL (46844)Indication: Mixed hyperlipidemia On: :28 Request LIPID PANEL (36357)Indication: Mixed hyperlipidemia On: : Request LIPID PANEL (50718)Indication: Mixed hyperlipidemia On: :39 Request MICROALBUMIN: CREATININE RATIO (93281) AND (82134)Indication: Uncontrolled type II diabetes mellitus On: :39 Request CBC WITH MANUAL DIFF (24562)Indication: Essential hypertension with goal blood pressure less than 130/80 On: :39 Request METABOLIC PANEL, COMPREHENSIVE (02707)Indication: Elevated LFTs On: :39 Request TSH (11313)Indication: Acquired hypothyroidism On: :36 Request TSH (00624)Indication: Thyroid nodule On: :20 Request METABOLIC PANEL, COMPREHENSIVE (55450)Indication: Elevated LFTs On: :19 Request LIPID PANEL (34226)Indication: Mixed hyperlipidemia On: :19 Request C-REACTIVE PROTEIN (42195)Indication: Abnormal findings on diagnostic imaging of other specified body structures On: 01-Ovl-006925: Request SED RATE ERYTHROCYTE (60259)Indication: Abnormal findings on diagnostic imaging of other specified body structures On: 72-Lpg-329067: Request LDH (LD) (LACTATE DEHYDROGENASE) (71175)Indication: Abnormal findings on diagnostic imaging of other specified body structures On: 61-Yeo-046587: Request Urine Protein Electrophoresis (UPEP) (97391)Indication: Abnormal findings on diagnostic imaging of other specified body structures On: 83-Zvx-323096: Request Serum Protein Electrophoresis (SPEP) (82044)Indication: Abnormal findings on diagnostic imaging of other specified body structures On: 64-Puj-308888: Request METABOLIC PANEL, COMPREHENSIVE (91204)Indication: Diabetes mellitus type II, controlled On: :19 Request LIPID PANEL (11654)Indication: Mixed hyperlipidemia On: : Request URINE GENESIS CULTURE-NITA COL COUNT (41093)Indication: Dysuria On: 59-Vwd-485817:58 Request HEPATIC FUNCTION PANEL (97088)Indication: Elevated LFTs On: :18 Request LIPID PANEL (09271)Indication: Mixed hyperlipidemia On: 92-Rzi-946349:17 Request MICROALBUMIN: CREATININE RATIO (48490) AND (82830)Indication: Uncontrolled type II diabetes mellitus On: 0-Gir-457028:47 Request CBC WITH MANUAL DIFF (26528)Indication: Uncontrolled type II diabetes mellitus On: 8-Odn-581121:47 Request METABOLIC PANEL, COMPREHENSIVE (22277)Indication: Uncontrolled type II diabetes mellitus On: 1-Iaz-792856:47 Request HEPATIC FUNCTION PANEL (78978)Indication: Elevated LFTs On: 8-Fcn-706277:45 Request LIPID PANEL (32096)Indication: Mixed hyperlipidemia On: 6-Hhx-968140:44 Request HEPATIC FUNCTION PANEL (89007)Indication: Fatty liver On: 6-Zeb-226131:30 Request LIPID PANEL (71643)Indication: Mixed hyperlipidemia On: 5-Fmi-981501:30 Request URINE GENESIS CULTURE (NITA COL COUNT) (54500)Indication: Low back pain potentially associated with radiculopathy On: 64-Xkj-063740:03 Request MICROALBUMIN: CREATININE RATIO (66336) AND (20461)Indication: Dysuria On: 87-Mmq-521772:05 Request LIPID PANEL (67325)Indication: Dysuria On: 43-Aqj-222554:05 Request TSH (92956)Indication: Dysuria On: 47-Frb-944165:05 Request METABOLIC PANEL, COMPREHENSIVE (83996)Indication: Dysuria On: 48-Phj-065053:04 Request CBC WITH MANUAL DIFF (86984)Indication: Dysuria On: 72-Cid-912584:04 Request URINE GENESIS CULTURE-NITA COL COUNT (16644)Indication: Dysuria On: 46-Hdc-541671:45 Request URINE GENESIS CULTURE (NITA COL COUNT) (03681)Indication: Dysuria On: 82-Xpa-690504:17 Request METABOLIC PANEL, COMPREHENSIVE (51232)Indication: Fatty liver On: 03-Ppw-05155:58 Request Magnesium (77407)Indication: Palpitations On: 57-Jht-48753:51 Request TSH (50301)Indication: Palpitations On: 20-Mbu-01155:51 Request METABOLIC PANEL, COMPREHENSIVE (56363)Indication: Palpitations On: 73-Rsg-92611:51 Request CBC WITH MANUAL DIFF (83547)Indication: Palpitations On: 52-Mtv-11109:51 Request GGT (Gamma Glutamyl Transferase) (06015)Indication: Elevated LFTs On: 96-Kqt-432549:16 Request HEPATIC FUNCTION PANEL (16830)Indication: Elevated LFTs On: 40-Tjj-909528:16 Request VITAMIN B-12 (CYANOCOBALAMIN) (69594)Indication: Fatigue On: 20-Ots-14986:23 Request MICROALBUMIN URINE QUANT (45572)Indication: Diabetes mellitus type II, controlled On: :22 Request TSH (38566)Indication: Fatigue On: :22 Request CBC WITH MANUAL DIFF (98198)Indication: Diabetes mellitus type II, controlled On: :22 Request METABOLIC PANEL, COMPREHENSIVE (95083)Indication: Diabetes mellitus type II, controlled On: :22 Request LIPID PANEL (98591)Indication: Mixed hyperlipidemia On: :22 Request HEPATIC FUNCTION PANEL (57488)Indication: Mixed hyperlipidemia On: 43-Bim-754174:48 Request LIPID PANEL (03274)Indication: Mixed hyperlipidemia On: 04-Ode-918073:48 Request Comments: in 3 mos Planned Encounters Medical; [facility] 1 Month FU - On: 12-Sep-2018 8:00 [facility] Fast DO, Sangeetha A Fast DO, Sangeetha A Medical; Overnight Pulse Ox Placement - On: 20-Sep-2018 13:00 [facility] Visit, Nurse Planned Procedures Echo CompleteBy: Fast DO, Sangeetha A On: 04-Sep-2018 Intent Fast DO, Sangeetha A CTA CHEST W/W/O CONTRAST (79145)By: On: 04-Sep-2018 Intent Fast DO, Sangeetha A Fast DO, Sangeetha A Overnight Pulse OX (23657)By: Fast On: 04-Sep-2018 Intent DO, Sangeetha A Fast DO, Sangeetha A Spirometry (57966)By: Fast DO, On: 04-Sep-2018 Intent Sangeetha A Fast DO, Sangeetha A Comments: difficutly with insp effort severe restriction ELECTROCARDIOGRAM, COMPLETE (ECG) On: 04-Sep-2018 Intent (07532)By: Fast DO, Sangeetha A Fast DO, Comments: ekg- 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 and possible recent anterior wall mi- nonspecific st depression Sangeetha A Flu Vaccine (Quadrivalent) 19302Kk: On: 21-Jul-2018 Intent Fast DO, Sangeetha A Fast DO, Sangeetha A SCREENING DIGITAL TOMOSYNTHESIS OF On: 21-Jul-2018 Intent BREAST (33180)By: Fast DO, Sangeetha A Fast DO, Sangeetha A B 12 Injection, 1000 mcg ([id number])By: On: 31-May-2018 Intent Fast DO, Sangeetha A Fast DO, Sangeetha A Comments: [id number] EXP:[id number] given:left deltoid Given By: clarita albright ABN signed CT - Abdomen (IV Contrast Needed)By: On: 31-May-2018 Intent Fast DO, Sangeetha A Fast DO, Sangeetha A Doppler Ultrasound OtherBy: Fast DO, On: 19-May-2018 Intent Sangeetha A Fast DO, Sangeetha A Comments: left arm ULTRASOUND OF LIVER ([id number])By: On: 24-Feb-2018 Intent Jennifer Rios MD PFT - CompleteBy: Fast DO, Sangeetha A On: 21-Oct-2017 Intent Fast DO, Sangeetha A Comments: at [facility] SCREENING DIGITAL TOMOSYNTHESIS OF On: 21-Oct-2017 Intent BREAST ([id number])By: Fast DO, Sangeetha A Comments: end of oct Fast DO, Sangeetha A EsophagramBy: Fast DO, Sangeetha A Fast On: 21-Oct-2017 Intent DO, Sangeetha A Comments: with 12 mm tablet ELECTROCARDIOGRAM, COMPLETE (ECG) On: 21-Oct-2017 Intent ([id number])By: Fast DO, Sangeetha A Fast DO, Sangeetha A Flu Vaccine (Quadrivalent) [id number]: On: 07-Jun-2017 Intent Fast DO, Sangeetha A [...] DO, Sangeetha A DEXA SCAN AXIAL SKELETON ([id number])By: On: 16-Aug-2016 Intent Fast DO, Sangeetha A Fast DO, Sangeetha A MAMMOGRAM, SCREENING, BOTH BREAST On: 16-Aug-2016 Intent ([id number])By: Fast DO, Sangeetha A Fast DO, Sangeetha A ELECTROCARDIOGRAM, COMPLETE (ECG) On: 16-Aug-2016 Intent ([id number])By: Fast DO, Sangeetha A Fast DO, Sangeetha A Flu Vaccine (Quadrivalent) [id number]: On: 16-Aug-2016 Intent Fast DO, Sangeetha A Fast DO, Sangeetha A Comments: FLUlot: [id number]/09site:Lt deltoidroute:IMdose:.[facility]ml[facility] [place] [facility] OF INFLUENZA VIRUS On: 16-Aug-2016 Intent VACCINE ([id number])By: Fast DO, Sangeetha A Fast DO, Sangeetha A Ultrasound - ThyroidBy: Fast DO, On: 10-Nov-2015 Intent Sangeetha A Fast DO, Sangeetha A Ultrasound - LiverBy: Fast DO, Sangeetha On: 10-Nov-2015 Intent A Fast DO, Sangeetha A Flu Vaccine (Quadrivalent) [id number]: On: 08-Aug-2015 Intent Fast DO, Sangeetha A Fast DO, Sangeetha A Comments: Lot #[id number]-L dltd, IMDose prefilled syringegiven by:Romero, AMRITANVIS and ABN signed MAMMOGRAM, SCREENING, BOTH BREAST On: 08-Aug-2015 Intent ([id number])By: Fast DO, Sangeetha A Fast DO, Sangeetha A Ultrasound - ThyroidBy: Fast DO, On: 08-Aug-2015 Intent Sangeetha A Fast DO, Sangeetha A Ultrasound - LiverBy: Fast DO, Sangeetha On: 08-Aug-2015 Intent A Fast DO, Sangeetha A ADMINISTRATION OF PNEUMOCOCCAL On: 01-Nov-2014 Intent VACCINE ([id number])By: Fast DO, Sangeetha A Fast DO, Sangeetha A PNEUM VAC ADLT/IMUMNOSPR, SBC/INTRM On: 01-Nov-2014 Intent ([id number])By: Fast DO, Sangeetha A Fast DO, Comments: Lot:[id number]:02/29/16Dose:0.5mgRoute:imSite:mk Donis By:BATSHEVA Ring A Ultrasound - LiverBy: Tavon DO, Sangeetha On: 05-Jul-2014 Intent A Fast DO, Sangeetha A BILATERAL MAMMOGRAMS ([id number])By: Tavon On: 05-Jul-2014 Intent DO, Sangeetha A Fast DO, Sangeetha A Ultrasound - ThyroidBy: Tavon DO, On: 05-Jul-2014 Intent Sangeetha A Fast DO, Sangeetha A ADMINISTRATION OF INFLUENZA VIRUS On: 05-Jul-2014 Intent VACCINE ([id number])By: Arpan Irvin DOa A Comments: Influenzalot:[id number]:03/25/2015dose:0.5mLRoute: IMlocation:Lois donis by:marika Fast DO, Sangeetha A FLU VAC, SPLIT, >3 YEARS, INTRAMUSC On: 05-Jul-2014 Intent ([id number])By: Sangeetha Irvin DO Fast DO, Sangeetha A INFUSION, NORMAL SALINE SOLUTION , On: 15-Apr-2014 Intent 250 CC ([id number])By: Angelina Winn CNP Rocephon Injection, 1 Gm ([id number])By: On: 15-Apr-2014 Intent Angelina Winn CNP Comments: Rocephin 1gmLot #[id number]. [id number] in R hand x 1 stick with a 22 gauge butterfly. Patient tolerated well with no c/o voiced. No infiltrate noted. Discontinued following infusion with no ecchymosis noted. JQuestel. Radiology - Cervical SpineBy: Tavon On: 06-Feb-2014 Intent DO, Sangeetha A Fast DO, Snageetha A Eprescribed prescriptions ([id number])By: On: 06-Feb-2014 Intent Fast DO, Sangeetha A Fast DO, Sangeetha A CT - Brain/Head (IV Contrast On: 08-Jan-2014 Intent Needed)By: Sangeteha Irvin DO Fast DO, Sangeetha A ADMINISTRATION OF INFLUENZA VIRUS On: 27-Jul-2013 Intent VACCINE ([id number])By: Tavon DAVIS, Sangeetha A Fast DO, Sangeetha A FLU VAC, SPLIT, >3 YEARS, INTRAMUSC On: 27-Jul-2013 Intent ([id number])By: Fast DO, Sangeetha A Fast DO, Sangeetha A Eprescribed prescriptions ([id number])By: On: 04-Jun-2013 Intent Delisa Melendez LPN SPECIMEN HANDLING/TRANSPORT On: 04-Jun-2013 Intent ([id number])By: Delisa eMlendez LPN INFUSION, NORMAL SALINE SOLUTION , On: 15-Feb-2013 Intent 1000 CC (Special Coverage Comments: 500 cc Instructions Apply. See MCM: 2049) ([id number])By: Jennifer Rios MD HYDRATION IV INFUSION, INIT On: 15-Feb-2013 Intent ([id number])By: Jennifer Rios MD Ultrasound - ThyroidBy: Fast DO, On: 19-Jan-2013 Intent Sangeetha A Fast DO, Sangeetha A MAMMOGRAM, SCREENING, BOTH BREASTS On: 19-Jan-2013 Intent ([id number])By: Fast DO, Sangeetha A Fast DO, Comments: due in january Sangeetha A Eprescribed prescriptions ([id number])By: On: 19-Jan-2013 Intent Isabella Grigsby Pulse Oximetry ([id number])By: Seb, On: 29-Sep-2012 Intent Isabella Comments: 98% [...] MAMMOGRAM, SCREENING, BOTH BREASTS On: 24-Jan-2012 Intent ([id number])By: Fast DO, Sangeetha A Fast DO, Sangeetha A TDAP VACCINE >7 IM ([id number])By: Fast On: 04-Oct-2011 Intent DO, Sangeetha A Fast DO, Sangeetha A Comments: Lot:[id number]:08/12/13Amt:prefilledRoute:IMSite:right deltGiven By: NATALEE Spence Aerosol Treatment ([id number])By: Blanca On: 26-Aug-2011 Intent Jennifer KING Pulse Oximetry ([id number])By: Blanca On: 26-Aug-2011 Intent Jennifer KING SPECIMEN HANDLING/TRANSPORT On: 23-Jul-2011 Intent ([id number])By: Delisa Melendez LPN FLU VAC, SPLIT, >3 YEARS, INTRAMUSC On: 05-Jul-2011 Intent ([id number])By: Isabella Grigsby Comments: Lot #[id number]/20/12Site-left deltoidgiven by: Lisa Bello LPN Ultrasound - ThyroidBy: Fast DO, On: 05-Jul-2011 Intent Sangeetha A Fast DO, Sangeetha A MAMMOGRAM, SCREENING, BOTH BREASTS On: 05-Jul-2011 Intent ([id number])By: Fast DO, Sangeetha A Fast DO, Sangeetha A ADMINISTRATION OF INFLUENZA VIRUS On: 05-Jul-2011 Intent VACCINE (G0008)By: Isabella Grigsby Eprescribed prescriptions ([id number])By: On: 04-Jun-[address] - Brain/HeadBy: Fast DO, Sangeetha A On: 07-Oct-2010 Intent Fast DO, Sangeetha A Comments: with and without contrast MAMMOGRAM, SCREENING, BOTH BREASTS On: 26-Jun-2010 Intent ([id number])By: Fast DO, Sangeetha A Fast DO, Sangeetha A ADMINISTRATION OF INFLUENZA VIRUS On: 26-Jun-2010 Intent VACCINE (G0008)By: Fast DO, Sangeetha A Fast DO, Sangeetha A FLU VAC, SPLIT, >3 YEARS, INTRAMUSC On: 26-Jun-2010 Intent ([id number])By: Fast DO, Sangeetha A Fast DO, Comments: Lot:[id number] 4PExp:12/2010Dose:0.5mlRoute:IMSite:Left DeltoidGiven by: HEIDI Alberto Ultrasound - ThyroidBy: Fast DO, On: 07-Jan-2010 Intent Sangeetha A Fast DO, Sangeetha A CT - Spine/CervicalBy: Fast DO, On: 15-Dec-2009 Intent Sangeetha A Fast DO, Sangeetha A Comments: 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 -- need to rule out Pulse Oximetry ([id number])By: Fast DO, On: 09-Jul-2009 Intent Sangeetha A Fast DO, Sangeetha A Spirometry ([id number])By: Fast DO, On: 10-Jul-2009 Intent Sangeetha A Fast DO, Sangeetha A Comments: good effort and curve- mild restriciton Radiology - Chest- PA and LatBy: On: 09-Jul-2009 Intent Fast DO, Sangeetha A Fast DO, Sangeetha A Pulse Oximetry ([id number])By: Fast DO, On: 10-Jul-2009 Intent Sangeetha A Fast DO, Sangeetha A Comments: 98 FLU VAC, SPLIT, >3 YEARS, INTRAMUSC On: 09-Jul-2009 Intent ([id number])By: Isabella Grigsby Comments: Lot #[id number]-right deltoidDose0.5mlgiven by Juventino Nye LPN IMMUNIZ ADMNIN, 1 VAC, SNGL/COMBO On: 09-Jul-2009 Intent ([id number])By: Isabella Grigsby EKG ([id number])By: Fast DO, Sangeetha A On: 10-Oct-2008 Intent [...] ADMNIN, 1 VAC, SNGL/COMBO On: 10-Jul-2008 Intent ([id number])By: Fast DO, Sangeetha A Fast DO, Sangeetha A FLU VAC, SPLIT, >3 YEARS, INTRAMUSC On: 10-Jul-2008 Intent ([id number])By: Fast DO, Sangeetha A Fast DO, Comments: injection given in left deltoid, pt tolerated welllot # [id number]/ Sangeetha A Holter Monitor 24 hrsBy: Fast DO, On: 10-Jul-2008 Intent Sangeetha A Fast DO, Sangeetha A EKG ([id number])By: Marlene Reddy On: 10-Jul-2008 Intent Comments: ekg [...] [facility]: [facility] 31.0-31.9,adult, Nonsmoker, SOB (shortness [...] using tylenol and will go back to [place] if need be for shot-sugar fine-n foot [...] off metformin and lisinopril andthen went to [place] for couple weeks then had multiple falls sent back to hospital and transferred to [facility] there for few weeks then to [facility] had lots of pt- and doing [...] fasting blood sugars : (was lower before [place] and 139 last week fasting in the [...] Reason for hospitalization abdominal pain (Went to [facility] on 02/28/15). Hospitalization details include: [...] previously evaluated by a primary physician (at [facility]- Dr Reyes ). Presentation included lid [...] is helping her mood- has followup in [place] may 04 - her weight down 20 [...] sees heart failure doctor next week [facility] - -- mood ebs and [...] all the problems -goes back to [facility] on tuesday and psych in 2 [...] or less). 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
--- OUTSIDE RECORDS SUMMARY | 2018-10-21 23:16 | XMS RPT_ITS | Continuity of Care Document ---
:1965 Author Organization [facility] Address [facility] [address] [place] [address] Phone Care Team Providers Name Role Phone [...] 3 Ordered:28-Jul-2017 Fast DO, Sangeetha AFast DO, Asngeetha A Start : 28-Jul-2017 Active Comments:E11.9 COREG, [...] 60 {Capsule} Refills: 3 Ordered:05-Jun-2018 Sangeetha JAVEDbud DAVIS Sangeetha A Start : 05-Jun-2018 Active Haloperidol [...] 30 {Tablet} Refills: 0 Ordered:14-Aug-2018 Sangeetha JAVEDbud DAVIS Sangeetha A Start : 14-Aug-2018 Active Omeprazole 20 MG Oral Capsule Delayed Release 1 (one) Capsule qam prior to breakfast for 0 days Quantity: 90 {Capsule} Refills: 3 Ordered:11-Sep-2018 Fast DO, Sangeetha AFast DO, Sangeetha A Start : 11-Sep-2018 Active OXYGEN (Nasal Gas) (Free Text) 1 (one) Gas 2L NC QHS for 30 days Quantity: 30 {QS} Refills: 11 Ordered:08-Sep-2018 Long TAXONOMY TEACHER, Amelia L Start : 08-Sep-2018 Active Comments:Home [...] Quantity: 10 {Tablet} Refills: 0 Ordered:23-Feb-2018 Long TAXONOMY TEACHER, Amelia L Start : 23-Feb-2018 Active [...] Quantity: 30 {Tablet} Refills: 0 Ordered:05-Jul-2011 Al TAXONOMY TEACHERDelisa Chaidez Start : 05-Jul-2011 End : 04-Aug-2011 [...] Quantity: 30 {Tablet} Refills: 1 Ordered:19-May-2018 Cipriano ALBRIGHTAmelia Start : 25-Jan-2018 End : 19-May-2018 Inactive ERGOCALCIFEROL, 37810IQBD (Oral Capsule) 1 (one) Capsule Capsule twice [...] Quantity: 30 {Tablet} Refills: 0 Ordered:05-Jul-2011 Al ALBRIGHT Delisa Start : 05-Jul-2011 End : 04-Aug-2011 [...] : 23-Jul-2011 End : 02-Aug-2011 Inactive MAXITROL, 3.5-37284-9.1 (Ophthalmic Ointment) apply to eye lids as [...] hs (50 MG) Inactive Comments:Dr. Hankins NYSTATIN, 568261KDOD/ML (Mouth/Throat Suspension) 5cc Suspension 5 times daily for 10days. for 10 days Refills: 0 Ordered:18-May-2010 Tavon DAVIS, Sangeetha العراقي DO, Sangeetha Diaz Start : 18-May-2010 End : 28-May-2010 Inactive [...] 90 {Capsule_ER_24HR} Refills: 3 Ordered:09-Sep-2008 DO, Sangeetha AFast DO, [...] Quantity: 30 {Tablet} Refills: 0 Ordered:19-May-2018 Long TAXONOMY TEACHER, Amelia L Start : 12-May-2012 End : 19-May-2018 Discontinued Comments:This order discontinued per [facility]. ZOFRAN ODT, 4MG (Oral Tablet Dispersible) qd prn nausea (4 MG) End : 08-Aug-2015 Discontinued Comments:[facility] Allergies and Adverse Reactions Name [...] w/ Contrast Result: Comments: See Note; NOTES: [facility] Cardiovascular Services [address] [place] [address] Echo Complete W/ Contrast 09/06/18 1002 MR#: [id number] Acct: [id number] Name: IFEOMA DÍAZ Rep #: [id number] : 1965 53 From: Boone Ch MD Attending Dr: Sangeetha Irvin DO Status: REG CLI Ordering Dr: Sangeetha Irvin DO Date: 09/06/18 Location: [facility] Sex: F C Admitted: Reason F or [...] Dictated: 09/06/18 1002 Date Transcribed: 09/06/18 1534 Cardiac Cath Tech: Signed 04-Sep-2018 CTA Chest W/WO Contrast Result: Comments: See Note; NOTES: [facility] Imaging Services [address] [place] [address] CTA Chest W/WO Contrast MR#: [id number] Acct: [id number] Name: IFEOMA ASHRAF Rep #: : 1965 F 53 From: Ziggy Santos MD PCP: Sangeetha Irvin DO Status: REG CLI Study: CTA Chest W/WO Contrast Date of Exam: 09/04/18 Exam# [id number] Ordering Dr: Sangeetha Irvin DO STUDY: CTA [...] Service support , CC: Sangeetha Irvin DO Cardiac Cath Tech: Signed 14-Jul-2018 Chest PA and Lateral Result: Comments: See Note; NOTES: [facility] Imaging Services [address] [place] [address] Chest PA and Lateral MR#: [id number] Acct: [id number] Name: IFEOMA ASHRAF Rep #: [id number] : 1965 F 53 From: Dimitris Valderrama DO PCP: Sangeetha Irvin DO Status: REG CLI Study: Chest PA and Lateral Date of Exam: 07/14/18 Exam# [id number] Ordering Dr: Oscar Todd MOTORCOACH OPERATOR-C STUDY: X-RAY CHEST REASON FOR EXAM: Female, [...] Dimitris Valderrama DO at 8:47 EDT Tel [phone], Service support , CC: NUNU Todd; Sangeetha Irvin DO Cardiac Cath Tech: Signed 10-Jun-2018 Pacemaker Check Result: Comments: See Note; NOTES: [facility] [address] [place] [address] Pacemaker Check Date of Service: 06/09/18 0909 MR#: [id number] Acct: [id number] Name: IFEOMA ASHRAF Rep #: [id number] : 1965 From: Danica Pickering Age/Sex: 53/F Location: [facility] Status: Signed Billing Codes ICD Device Billing: ICD Dev Prog Eval, Single 06/09/18 0913 <Elec tronically signed by Danica Pickering > Date Danica Pickering 06/10/18 1406<Electronically signed by Boone Ch MD> Mahnazignluana Signat ure: Date (if applicable) Boone hC MD CC: 08-Jun-2018 Cardiology Visit Report Result: Comments: See Note; NOTES: [facility] [address] [place] [address] OFFICE VISIT Date of Service: 05/31/18 MR#: [id number] Acct: [id number] Name: IFEOMA ASHRAF Rep #: [id number] : 1965 Provider: NUNU Todd Age/Sex: 53/F Location: [facility] Status: Signed with Addenda ADDENDUM by NUNU Todd on 06/01/18 at 0746 Addendum entered and electronic ally signed by LUPE Black 06/01/18 07:46: Patient's outside records from [facility] admission from 04/07/2018 to 04/27/2018 [...] ultimately discharged home with requested follow-up with [facility] neurology or local neurolo gist in approximately 6 weeks. Assessment AND Plan 1. Cardiomyopathy in other diseases classified elsewhere I43 EF is 15% Plan - LUPE Black Her echocardiogram in February [...] defibrillator (ICD) Z95.810 Generator change 11/13 @ [facility] Dr. Galdino Shin - LUPE Black Pacemaker check in February 2018 showed no [...] prior to saving. Follow Up 6 Months (GENERAL MANAGER) 05/31/18 (GIUSEPPE) 06/01/18 0747 <Electronically signed [...] ral regurgitation and tricuspid regurgitation. [facility] after being found unresponsive in her bathroom. During this hospitalization she was found to have an acute left axillary and left brachial vein DVT and was started on Eliquis. She presented to [facility] emergency department in March 2018 for altered mental status. Her CT scan prior to ER visit showed possible hygroma versus subacute resolving subdural hematoma. She was transferred to [facility] for further evaluation. These records [...] 05/31/18 Pulse Rate 100 Intake Visit Reasons: [facility] to [facility] to [facility] to [place] Allergies amitriptyline Adverse Reaction (Severe, Verified 05/31/18 [...] elsewhere I43 EF is 15% Plan - LPUE Black Her echocardiogram in February 2018 showed [...] rter-defibrillator (ICD) Z95.810 Generator change 11/13 @ [facility] LUPE Chapman Pacemaker check in February 2018 showed no VT/VF episodes since October 2017. She does not have a routine fo llow-up scheduled. This will be arranged for her. 3. Nonrheumatic mitral (valve) insufficiency I34.0 Plan - LUPE Black Her echocardiogram in February [...] prior to saving. Follow Up 6 Months (GENERAL MANAGER) 05/31/18 (GIUSEPPE) Coding Level of Care [...] Visit Report Result: Comments: See Note; NOTES: [facility] [address] [place], [place] [address] [address] OFFICE VISIT Date of Service: 06/05/18 1314 MR#: [id number] Acct: [id number] Name: MARIOTYLOR ALAN Dm Pulido Rep #: [id number] : 1965 From: Simeon Gresham MD Age/Sex: 53/F Location: [facility] Status: Signed Subjective - Date of Service Date of Service:: 06/05/18 - Chief Complaint Follow up DLBCL - His tory of Present Illness 53-year-old woman was diagnosed with non-Hodgkin's lymphoma, diffuse large B cell, stage IV of the uterine cervix with SILK HANGER/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 She had [...] stem cell transplant in February 2007 at [facility] with complete remission. She is on observation, [facility] for follow up. - Past [...] Chronic Code Visit Office Visits / Consults: 80352 OV L3 Est 1325 <Electronically signed by Simeon Gresham MD> Date Simeon Gresham MD Cosigner Signature: Date (if applicable) CC: 26-May-2018 Venous Duplex Upper Extremity Result: Comments: See Note; NOTES: [facility] Cardiovascular Services [address] [place] [address] Venous Duplex US, Unilateral 05/25/18 0903 MR#: [id number] Acct: [id number] Name: IFEOMA SILVA Rep #: [id number] : 1965 53 From: Juanjo Russo MD Attending Dr: Sangeetha Irvin DO Status: REG CLI Ordering Dr: Sangeetha Irvin DO Date: 05/25/18 Location: [facility] Sex: F C Admitted: R mingo For Study: follow LUE DVT Left Proximal [...] Date Dictated: 05/25/18902 Date Transcribed: 05/26/18 163 Cardiac Cath Tech: Signed 06-Apr-2018 Chest 1 View (Portable) Result: Comments: See Note; NOTES: [facility] Imaging Services [address] [place] [address] Chest 1 View (Portable) MR#: [id number] Acct: [id number] Name: IFEOMA ASHRAF Rep #: [id number] : 1965 F 53 From: Levy Lucas DO PCP: Sangeetha Irvin DO Status: PRE ER Study: Chest 1 View (Portable) Date of Exam: 04/06/18 Exam# [id number] Ordering Dr: Dejuan Bacon MD STUDY: X-RAY [...] , CC: Sangeetha Irvin DO; Dejuan Bacon Cardiac Cath Tech: Signed 05-Apr-2018 Brain/Head without Contrast Result: Comments: See Note; NOTES: [facility] Imaging Services [address] [place] [address] Brain/Head without Contrast MR#: [id number] Acct: [id number] Name: IFEOMA ASHRAF Rep # : [id number] : 1965 F 53 From: Levy Lucas DO PCP: Sangeetha Irvin DO Status: REG CLI Study: Brain/Head without Contrast Date of Exam: 04/05/18 Exam# [id number] Ordering Dr: Oscar Bartlett MD STUDY : [...] 14:06 EDT Tel , Service support 1- [phone], N.B. : The above information has been verbally conveyed by Levy Lucas DO to connected , Covering Physician, on 04/05/2018 14:06:03 (ET). CC: Sangeetha Irvin DO; Oscar Bartlett MD Cardiac Cath Tech: Signed 05-Apr-2018 Brain/Head without Contrast Result: Comments: See Note; NOTES: [facility] Imaging Services [address] [place] [address] Brain/Head without Contrast MR#: [id number] Acct: [id number] Name: IFEOMA ASHRAF Rep # : [id number] : 1965 F 53 From: Levy Lucas DO PCP: Sangeetha Irvin DO Status: REG CLI Study: Brain/Head without Contrast Date of Exam: 04/05/18 Exam# [id number] Ordering Dr: Oscar Bartlett MD STUDY : [...] 14:06 EDT Tel , Service support 1- [phone], N.B. : The above information has been verbally conveyed by Levy Lucas DO to connected , Covering Physician, on 04/05/2018 14:06:03 (ET). CC: Sangeetha Irvin DO; Oscar Bartlett MD Cardiac Cath Tech: Signed 31-Mar-2018 Cardiology Visit Report Result: Comments: See Note; NOTES: [facility] [address] [place] [address] OFFICE VISIT Date of Service: 03/31/18 MR#: [id number] Acct: [id number] Name: Ifeoma Ashraf Rep #: [id number] : 1965 Provider: Boone Ch MD Age/Sex: 53/F Location[facility] Status: Signed HPI HPI Chief Complaint: Follow-up [...] who presented to the emergency department at [facility] on 03/08/2018 aft er being found [...] care unit. She was eventually transferred to [facility]. Her major problem at this time [...] Lt brachial Intake Visit Reasons: DC to [facility] 03-14 Mushroom Farmer Required: No Accompanied by: mother Is patient [...] therapy. I would like to obtain a product development chemist ry profile to be able to appropriately adjust any diuretics. At this juncture it may be prudent to add Lasix 40 mg a day to her current regimen. 2. Presence of implantable cardioverter-defibrillator (I CD) Z95.810 Generator change 11/13 @ [facility] Dr. Ahmadi Plan She does [...] months. 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 (planned giving officer) Coding Level of Care Code Off [...] Flow Screening Result: Comments: See Note; NOTES: [facility] Cardiovascular Services [address] [place] [address] 11/22/17 0803 MR#: [id number] Acct: [id number] Name: IFEOMA ASHRAF Rep #: [id number] [...] Date Dictated: 11/22/17 0803 Date Transcribed: 11/22/171517 Cardiac Cath Tech: Signed 18-Nov-2017 Office Visit Report Result: Comments: See Note; NOTES: [place] [address] [address] OFFICE VISIT Date of Service: 11/17/17 MR#: [id number] Acct: [id number] Patient: IFEOMA ASHRAF Rep #: [id number] : 1965 Provider: Danica Pickering Age/Sex: 52/F [...] n office Interview Reason: scheduled follow up Pantograph I Engraver: [employer] Name: Lan Mckeon VR Model: [id number] Serial #: [id number] Implant Date: 11/10/17 Year(s): 0 Implant Physician: [...] and No drainage Bibiana ds Lead #1 Pantograph I Engraver Lead 1: [employer] Model Lead 1: 7121Q/58 Serial# Lead 1: [id number] Date Implanted Lead 1: 10/10/09 Position Lead [...] Operative Report Result: Comments: See Note; NOTES: [facility] Medical Records Department [address] [place] [address] Operative Report 11/10/17 1148 MR#: [id number] Acct: [id number] Name: SALOME ASHRAF Rep #: [id number] : 1965 52 From: Lior Ahmadi MD PCP: Sangeetha Irvin DO Status: REG MNC Y Location: [facility] Operative Report Date of Procedure: 11/10/17 Preoperative diagnosis is device at end of life for normal battery depletion. Postoperative diagnosis same as above. After informed consent and IV antibiotics the patient was brought to the [place] [facility] and the ski n over [...] chart documents provided by the device company correspondence representative procedure summary. 11/10/17 1150 <Electronically signed by Lior Ahmadi MD > Date Lior Ahmadi MD CC: Sangeetha Irvin DO; Lior Ahmadi MD Signed 03-Nov-2017 Office Visit Report Result: Comments: See Note; NOTES: [facility] [address] [facility] [place] [address] OFFICE VISIT Date of Service: 11/03/17 MR#: [id number] Acct: [id number] Patient: IFEOMA ASHRAF Rep #: [id number] : 1965 Provider: Danica Pickering Age/Sex: 52/F Location: [facility] Status: Signed Comments Summary Comments: Written and [...] in office Interview Reason: routine follow up Pantograph I Engraver: [employer] Name: Current VR Model: 1211-36Q ICD Serial #: [id number] Implant Date: 10/10/09 Year(s): 8 Implant Physician: [...] Model Lead 1: 7121Q/58 Serial# Lead 1: [id number] Date Implanted Lead 1: 10/10/09 Position Lead [...] 11/03/17 1648<Electronically signed by Boone Ch MD> Mahnazign Signature: Date (if applicable) Boone Ch MD CC: 03-Nov-2017 Cardiology Visit Report Result: Comments: See Note; NOTES: [facility] [address] [place] [address] OFFICE VISIT Date of Service: 11/03/17 MR#: [id number] Acct: [id number] Name: IFEOMA ASHRAF Rep #: [id number] : 1965 Provider: Boone Ch MD Age/Sex: 52/F Location: [facility] Status: Signed HPI HPI Details: IFEOMA ASHRAF, [...] 25 to 29 (25% per echo 03/11/2015) [facility] Medical History Type 2 diabetes mellitus [...] of automatic cardioverter/defibrillator (AICD) Z95.810 10/06/2009 @ [facility] Plan She is status post ICD implantation [...] was also being followed up at the [facility]. She is also on spironolactone and sh [...] and Lateral Result: Comments: See Note; NOTES: [facility] Imaging Services [address] [place] [address] Chest PA and Lateral MR#: [id number] Acct: [id number] Name: IFEOMA ASHRAF Rep #: [id number] : 1965 F 52 From: Dimitris Valderrama DO PCP: Sangeetha Irvin DO Status: PRE [facility] Study: Chest PA and Lateral Date of Exam: 11/03/17 Exam# [id number] Ordering Dr: Boone Ch MD STUDY: X-RAY [...] Dimitris Valderrama DO at 18:21 EST Tel [phone], Se rvice support , CC: Boone Ch MD; Sangeetha Irvin DO Cardiac Cath Tech: Signed 14-Oct-2017 Office Visit Report Result: Comments: See Note; NOTES: [facility] [address] [place] [address] [place] [address] OFFICE VISIT Date of Service: 10/12/17 MR#: [id number] Acct: [id number] Patient: IFEOMA ASHRAF Rep #: [id number] : 1965 Provider: Danica Pickering Age/Sex: 52/F Location: [facility] Status: Signed Comments Summary Comments: Single Chamber ICD Evaluation: Interrogation shows No VT/VF episodes since . No Alerts noted. Left pectoral pocket/incision w/o s/s of infection or erosion. Pt offers no cardiac complaints. Presenting rhythm shows Sinus Tachycardia @ 105 bpm. Left pectoral pocket/incision w/o s/s of infection or erosion. MARINE ENGINEERING PROFESSOR=0%. Battery longevity approx 2.9 mos. At device check in June device showed longevity of 14 mos. D/T longevity decreasing quickly pt scheduled for ICD generator el gilliam with Dr. Ahmadi on 11/10/17 @ [facility]. Lead impedances, sensing and pace/sense threshold remain stable. No parameter changes made. Counters cleared. Pt scheduled for o.v and teaching on 11/03/17 and ICD g enerator change on 11/10/17. Device Device Date Interviewed: 10/12/17 Follow- up Location: in office Interview Reason: routine follow up Pantograph I Engraver: 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 Model Lead 1: 7121Q/58 Serial# Lead 1: [id number] Date Implanted Lead 1: 10/10/09 Position Lead [...] IV Contrast Result: Comments: See Note; NOTES: [facility] Imaging Services [address] [place] [address] Abdomen WITH IV Contrast MR#: [id number] Acct: [id number] Name: IFEOMA ASHRAF Rep #: [id number] : 1965 F 52 From: Carl Vincent MD PCP: Sangeetha Irvin DO Status: REG CLI Study: Abdomen WITH IV Contrast Date of Exam: 06/15/17 Exam# [id number] Ordering Dr: Analisa Conway MD STUDY: CT [...] CC: Analisa Conway MD; Sangeetha Irvin DO Cardiac Cath Tech: Signed 15-Jun-2017 Spine Cervical without Contras Result: Comments: See Note; NOTES: [facility] Imaging Services [address] [place] [address] Spine Cervical without Contras MR#: [id number] Acct: [id number] Name: MALULUANAIFEOMA p #: [id number] : 1965 F 52 From: Zev Mandujano MD PCP: Sangeetha Irvin DO Status: REG CLI Study: Spine Cervical without Contras Date of Exam: 06/15/17 Exam# [id number] Ordering Dr: Analisa Conway MD STUDY: CT [...] techniques were used for this CT. [facility]. FINDINGS: Normal craniovertebral junction. Normal [...] CC: Analisa Conway MD; Sangeetha Irvin DO Cardiac Cath Tech: Signed 10-Feb-2017 Spine Lumbar without Contrast Result: Comments: See Note; NOTES: [facility] Imaging Services [facility] [place] [address] Verdana 4d Spine Lumbar without Contrast MR#: [id number] Acct: [id number] Name: MARISEL ASHRAF Rep #: [id number] : 1965 F 51 From: Brian Gill MD PCP: Fast DO,Sangeetha Status: REG CLI Study: Spine Lumbar without Contrast Date of Exam: 02/10/17 Exam# [id number] Ordering Dr: Analisa Carr i, MD STUDY: [...] CC: Analisa Conway MD; Sangeetha Irvin DO Cardiac Cath Tech: Signed 20-Jan-2017 Liver Result: Comments: See Note; NOTES: [facility] Imaging Services [address] [place] [address] Verdana 4d Liver MR#: [id number] Acct: [id number] Name: IFEOMA ASHRAF Rep #: [id number] : 1965 F 51 From: Vincent Bui DO PCP: Sangeetha Irvin DO Status: REG CLI Study: Liver Date of Exam: 01/20/17 Exam# [id number] Ordering Dr: Sangeetha Irvin DO STUDY: ABDOMINAL [...] Vincent Bui DO at 23:43 EDT Tel [phone], Service support , CC: Sangeetha Irvin DO Cardiac Cath Tech: Signed 20-Jan-2017 Thyroid Result: Comments: See Note; NOTES: [facility] Imaging Services [address] [place] [address] Verdana 4d Thyroid MR#: [id number] Acct: [id number] Name: IFEOMA ASHRAF Rep #: [id number] : 1965 F 51 From: Jin Rolon PCP: Sangeetha Irvin DO Status: REG CLI Study: Thyroid Date of Exam: 01/20/17 Exam# [id number] Ordering Dr: Sangeetha Irvin DO STUDY: THYROID [...] Service support , CC: Sangeetha Irvin DO Cardiac Cath Tech: Signed 17-Nov-2016 Dexa Bone Density Study (HP) Result: Comments: See Note; NOTES: [facility] Imaging Services [address] [place] [address] Verdana 4d Dexa Bone Density Study (HP) MR#: [id number] Acct: [id number] Name: COL HARPAL ASHRAF Rep #: [id number] : 1965 F 51 From: Prashant Delgadillo MD PCP: Sangeetha Irvin DO Status: REG CLI Study: Dexa Bone Density Study (HP) Date of Exam: 11/17/16 Exam# [id number] Ordering Dr: Sangeetha Irvin DO STUDY: DUAL [...] Prashant Delgadillo MD at 10:52 EST Tel [phone], Service support [phone], CC: Sangeetha Irvin DO Cardiac Cath Tech: Signed 17-Nov-2016 SCREENING MAMM (CAD), BILAT Result: Comments: See Note; NOTES: [facility] Imaging Services [address] [place] [address] Verdana 4d SCREENING MAMM (CAD), BILAT MR#: [id number] Acct: [id number] Name: SALOME ASHRAF Rep #: [id number] : 1965 F 51 From: Prashant Delgadillo MD PCP: Fast DO,Sangeetha Status: REG CLI Study: SCREENING MAMM (CAD), BILAT Date of Exam: 11/17/16 Exam# [id number] Ordering Dr: Gary Irvin DO MAMMOGRAPHY - [...] biopsy of a clinically suspiciou s abnormality. [id number] Electronically Signed: Prashant Delgadillo MD at 12:55 EST Tel [phone], Service support [phone], CC: Sangeetha Irvin DO Cardiac Cath Tech: Signed 17-Nov-2016 SCREENING MAMM (CAD), BILAT Result: Comments: See Note; NOTES: [facility] Imaging Services [address] [place] [address] Verdana 4d SCREENING MAMM (CAD), BILAT MR#: [id number] Acct: [id number] Name: SALOME ASHRAF Rep #: [id number] : 1965 F 51 From: rPashant Delgadillo MD PCP: Sangeetha Irvin DO Status: REG CLI Study: SCREENING MAMM (CAD), BILAT Date of Exam: 11/17/16 Exam# [id number] Ordering Dr: Gary Irvin DO ADDENDUM by [...] delay biopsy of a clinically suspicious abnormality. [id number] Electronically Signed: Prashant Delgadillo MD at 13:07 EST Tel [phone], Service support [phone], 11/17/16 1315 Date cc: Sangeetha Irvin DO [...] delay biopsy of a clinically suspicious abnormality. [id number] Electronically Signed: Prashant Delgadillo MD at 12:55 EST Tel [phone], Ser vice support [phone], CC: Sangeetha Irvin DO Cardiac Cath Tech: Signed 19-Dec-2015 Liver Result: Comments: See Note; NOTES: [facility] Imaging Services [address] [place] [address] Verdana 4d Liver MR#: [id number] Acct: [id number] Name: IFEOMA ASHRAF Rep #: [id number] : 1965 F 50 From: Ziggy Santos MD PCP: Sangeetha Irvin DO Status: REG CLI Study: Liver Date of Exam: 12/19/15 Exam# [id number] Ordering Dr: Sangeetha Irvin DO STUDY: ABDOMINAL [...] Service support , CC: Sangeetha Irvin DO Cardiac Cath Tech: Signed 19-Dec-2015 Thyroid Result: Comments: See Note; NOTES: [facility] Imaging Services [address] [place] [address] Verdana 4d Thyroid MR#: [id number] Acct: [id number] Name: MARIOWAQASIFEOMA ep #: [id number] : 1965 F 50 From: Ziggy Santos MD PCP: Sangeetha Irvin DO Status: REG CLI Study: Thyroid Date of Exam: 12/19/15 Exam# [id number] Ordering Dr: Sangeetha Irvin DO STUDY: THYROID [...] at 10:56 EDT Tel , Service support [phone], CC: Sangeetha Irvin DO Cardiac Cath Tech: Signed 14-Aug-2015 Bilat Scrn Digital AND CAD Result: Comments: See Note; NOTES: [facility] Imaging Services [address] [place] [address] Verdana 4d Bilat Scrn Digital AND CAD MR#: [id number] Acct: [id number] Name: IFEOMA ASHRAF Rep #: [id number] : 1965 F 50 From: Prashant Delgadillo MD PCP: Sangeetha Irvin DO Status: REG CLI Study: Bilat Scrn Digital AND CAD Date of Exam: 08/14/15 Exam# [id number] Order ing Dr: Sangeetha Irvin DO MAMMOGRAPHY [...] Prashant Delgadillo MD at 10:49 EST Tel [phone], Service support [phone], CC: Sangeetha Irvin DO Cardiac Cath Tech: Signed 10-Mar-2015 Emergency Department Summary Result: Comments: See Note; NOTES: [facility] Medical Records Department [address] [place] [address] Emergency Department Summary MR#: [id number] Acct: [id number] Name: IFEOMA RASMUSSEN Rep #: [id number] : 1965 49 From: Mayito Roldan DO PCP: Sangeetha Irvin DO Status: [facility] ER DATE OF SERVICE: 02/28/2015 [...] way. Mayito Roldan DO T: NTS JOB: [id number] 03/10/15 2329 <Electronically signed by Mayito Roldan DO> Date Mayito Roldan DO CC: Sangeetha Irvin DO Date Dictated: 02/28/15824 Date Transcribed: 02/28/15824 Cardiac Cath Tech: Signed 02-Mar-2015 Emergency Department Summary Result: Comments: See Note; NOTES: [facility] Medical Records Department [address] [place] [address] Emergency Department Summary MR#: [id number] Acct: [id number] Name: IFEOMA RASUMSSEN Rep #: [id number] : 1965 49 From: Alejandro Lopez DO PCP: Sangeetha Irvin DO Status: [facility] ER DATE OF SERVICE: 02/28/2015 [...] The patient has plans to go to [facility] on [facility]. I will give her local surgeon's name if she wants to speak with them or she can certainly also speak with Dr. Irvin. CLINICAL IMPRESSION: Biliary colic. Alejandro Lopez DO T: ROCK JOB: [id number] 03/02/15 0743 <Electronically signed by Alejandro Lopez DO> Date Alejandro Lopez DO CC: Sangeetha Irvin DO Date Dictated: 718 Date Transcribed: 02/28/15718 Cardiac Cath Tech: Signed 28-Feb-2015 Discharge Instruction Result: Comments: See Note; NOTES: [facility] Medical Records Department [address] [place] [address] Discharge Instruction 02/28/15 0639 MR#: [id number] Acct: [id number] Name: IFEOMA ASHRAF Rep #: [id number] : 1965 49 From: Alejandro Lopez DO [...] problems, contact your doctor. Call [facility] ([phone]) or report to the closest Em ergency Room. Call 911 if necessary. 02/28/15 0640 <Electronically signed by Alejandro Lopez DO> Date Alejandro Lopez DO Cosign er Signature (If Indicated): Date CC: Sangeetha Irvin DO 28-Feb-2015 Gallbladder Result: Comments: See Note; NOTES: [facility] Imaging Services [address] [place] [address] Ultrasound Report MR#: [id number] Acct: [id number] Name: IFEOAM ASHRAF Rep #: [id number] : 1965 F 49 From: Prashant Delgadillo MD PCP: Sangeetha Irvin DO Status: REG ER Study: Gallbladder Date of Exam: 02/28/15 Exam# [id number] Ordering Dr: Alejandro Lopez DO STUDY: ABDOM [...] Prashant Delgadillo MD at 8:15 EDT Tel [phone], Service support [phone], CC: Alejandro Lopez DO; Sangeetha Irvin DO Cardiac Cath Tech: Signed 11-Feb-2015 Spine Cervical without Contras Result: Comments: See Note; NOTES: [facility] Imaging Services [address] [place] [address] CAT Scan Report MR#: [id number] Acct: [id number] Name: IFEOMA ASHRAF Rep #: [id number] : 1965 F 49 From: Prashant Delgadillo MD PCP: Sangeetha Irvin DO Status: REG CLI Study: Spine Cervical without Contras Date of Exam: 02/11/15 Exam# [id number] Ordering Dr: Analisa Conway MD STUDY: CT [...] Prashant Delgadillo MD at 9:49 EDT Tel [phone], Service support [phone], CC: Analisa Conway MD; Sangeetha Irvin DO Cardiac Cath Tech: Signed 18-Jul-2014 Bilat Scrn Digital & CAD Result: Comments: See Note; NOTES: [facility] Imaging Services [address] [place] [address] Breast Imaging Report MR#: [id number] Acct: [id number] Name: IFEOMA ASHRAF Rep # : [id number] : 1965 F 49 From: Prashant Delgadillo MD PCP: Sangeetha Irvin DO Status: REG CLI Exam# [id number] Ordering Dr: Sangeetha Irvin DO MAMMOGRAPHY - [...] Prashant Delgadillo MD at 8:36 EDT Tel [phone], Servi ce support [phone], CC: Sangeetha Irvin DO Cardiac Cath Tech: Signed 18-Jul-2014 Liver Result: Comments: See Note; NOTES: [facility] Imaging Services [address] [place] [address] Ultrasound Report MR#: [id number] Acct: [id number] Name: IFEOMA ASHRAF Rep #: : 1965 F 49 From: Prashant Delgadillo MD PCP: Sangeetha Irvin DO Status: REG CLI Study: Liver Date of Exam: 07/18/14 Exam# [id number] Ordering Dr: Sangeetha Irvin DO STUDY: ABDOMINAL [...] Prashant Delgadillo MD at 9:34 EDT Tel [phone], Service support [phone], CC: Sangeetha Irvin DO Cardiac Cath Tech: Signed 18-Jul-2014 Thyroid Result: Comments: See Note; NOTES: [facility] Imaging Services [address] [place] [address] Ultrasound Report MR#: [id number] Acct: [id number] Name: MALULUANAIFEOMA Rep #: [id number] : 1965 F 49 From: Prashant Delgadillo MD PCP: Sangeetha Irvin DO Status: REG CLI Study: Thyroid Date of Exam: 07/18/14 Exam# [id number] Ordering Dr: Sangeetha Irvin DO STUDY: THYROID [...] Delgadillo MD at 8:41 EDT T el [phone], Service support [phone], CC: Sangeetha Irvin DO Cardiac Cath Tech: Signed 05-Feb-2014 Brain/Head W/WO Contrast Result: Comments: See Note; NOTES: [facility] Imaging Services [address] [place], [place] [address] [place] [address] CAT Scan Report MR#: [id number] Acct: [id number] Name: IFEOMA ASHRAF Rep #: [id number] : 1965 F 48 From: Prashant Delgadillo MD PCP: Sangeetha Irvin DO Status: REG CLI Study: Brain/Head W/WO Contrast Date of Exam: 02/05/14 Exam# [id number] Ordering Dr: Sangeetha Irvin DO STUD Y: [...] Prashant Delgadillo MD at 9:19 EDT Tel [phone], Service support [phone], CC: Sangeetha Irvin DO Cardiac Cath Tech: Signed Immunization Name Dates Details Influenza (3 years and up) on: 10-Jul-2008 Comments: injection given in left deltoid, pt tolerated welllot # [id number] Influenza (3 years and up) on: 09-Jul-2009 Comments: Lot #[id number]-right deltoidDose0.5mlgiven by Juventino Nye LPN Family History [...] Value Details :59 BNP,B-Type NATRIURETIC PEPTIDE Comments: [facility] [address] [facility] [address] [place], [place], [id number] B-TYPE JACKIE PEP 819.3 pg/mL (Abnormal) Range: 0-100 :59 CBC W/Diff, Automated Comments: [facility] [address] [place], [place], [address] Absolute Lymph 1.08 {X10_3/ul} (Normal) Range: 0.83-4.51 [...] 4.2-5.4 WBC 7.5 K/mm3 (Normal) Range: 4.4-11.0 48-Ofi-005143:59 Comprehensive Metabolic Profil Comments: 'TROP' Serial specimen #1, #2, #3, or #4: [address] [place] [address] [address] [place], [place], [address] GAP 8 (Normal) Range: 5-15 CO2 29.0 [...] A.D.A. criteria.Please note revised GLUCOSE reference range prftsxeuq81/02/2018. 97-Pwg-904457:59 CPK Total, Creatine Kinase Comments: 'TROP' Serial specimen #1, #2, #3, or #4: [address] [place] [address] [place], [address] CPK TOTAL 30 U/L (Normal) Range: 26-192 17-Kco-854297:59 D-Dimer Quantitative (DVT/PE) Comments: [facility] [address] [place], [address] D-DIMER QUANT 1.44 {FEU/ug/m} (Abnormal) Range: 0.27-0.49 Comments: CRITICAL VALUE VERIFIED. CALLED TO FNLTWKEO48/10/18 1440 Francois Quinn.RESULTS READ BACK BY SAME .D-Dimer ELEVATED (>0.49): Additional studies and clinicalassessments are indicated to conclude di agnosis of:Deep Vein Thrombosis (DVT) or Pulmonary Embolism (PE) 75-Qrk-102721:59 Troponin-I Comments: 'TROP' Serial specimen #1, #2, #3, or #4: [address] [place] [address] [place], [place], [address] TROPONIN-I 0.030 ng/mL (Normal) Comments: TROPONIN-I EXPECTED [...] angiographical evidence. PLEASE NOTE: REFERENCE RANGES EDITED 02/06/1829-Aug-20181-Prc-345369:44 ANCA Comments: Is Patient Fasting? [facility] (refer to report for specific site)refer to report for address and phone number Atypical pANCA <1:20 {titer} (Normal) Comments: The atypical pANCA pattern has been observed in asignificant percentage of patients with ulcerative colitis,primary sclerosing cholangitis and autoimmune hepatitis.Performed at: [facility] [id number] Director: Omar Hood PhD, Phone: [phone] PERINUCLEAR Ab <1:20 {titer} (Normal) Comments: The [...] only by EIA. Ref. AM J Clin Cympfo8603;111:507-513. CYTOPLASMIC Ab <1:20 {titer} (Normal) 4-Jvx-551596:44 ANTINUCLEAR ANTIBODIES DIRECT Comments: [facility] (refer to report for specific site)refer to report for address and phone number LASHA-DIRECT Negative (Normal) Comments: Performed at: [facility] [id number] Director: Omar Hood PhD, Phone: [phone] 8-Xjd-063505:44 CPK Total, Creatine Kinase Comments: [facility] [address] [place], [place], [phone](645) CPK TOTAL 33 U/L (Normal) Range: 26-192 0-Uke-273164:44 Hemoglobin A1c Comments: [facility] [address] [place], [place], [phone](071) HGB A1C 10.6 % (Abnormal) Range: 4.2-6.3 1-Amt-222468:44 PRANEETH AND PE, Random UR Comments: Is Patient Fasting? [facility] (refer to report for specific site)refer to report for address and phone number NOTE Comment (Normal) Comments: Protein electrophoresis scan will follow via computer,mail, or jewel stringer delivery. PRANEETH RESULT,U Comment (Normal) Comments: No monoclonality detected. M-SPIKE,UR% Not Observed % (Normal) GAMMA GLOB,U 5.5 % (Normal) BETA GLOB,U 14.2 % (Normal) HQACB-1-UYKD,U 10.8 % (Normal) HZEJU-0-ZHWM,U 7.6 % (Normal) ALBUMIN,U 62.0 % (Normal) PROTEIN,UR 27.8 mg/dL (Normal) 0-Bdx-537979:44 PRANEETH + Protein Elect, Serum Comments: Is Patient Fasting? [facility] (refer to report for specific site)refer to report for address and phone number NOTE: Comment (Normal) Comments: Protein electrophoresis scan will follow via computer,mail, or jewel stringer delivery. PRANEETH RESULT,S Comment (Normal) Comments: No monoclonality detected. A/G RATIO 1.2 (Normal) Range: 0.7-1.7 GLOBULIN, TOTAL 2.9 g/dL (Normal) Range: 2.2-3.9 M-SPIKE g/dL (Normal) Comments: Not Observed GAMMA GLOBULIN 0.6 g/dL (Normal) Range: 0.4-1.8 BETA GLOBULIN 1.1 g/dL (Normal) Range: 0.7-1.3 ETXFE-1-CMPY 0.9 g/dL (Normal) Range: 0.4-1.0 UZKRB-0-GGTI 0.3 g/dL (Normal) Range: 0.0-0.4 ALBUMIN 3.4 g/dL (Normal) Range: 2.9-4.4 IMMUNOGL M 103 mg/dL (Normal) Range: 26-217 IMMUNO A 69 mg/dL (Abnormal) Range: 87-352 IMMUNO G 538 mg/dL (Abnormal) Range: 700-1600 PROTEIN,TOTAL 6.3 g/dL (Normal) Range: 6.0-8.5 7-Kpe-628764:44 Rheumatoid Factor Comments: [facility] [address] [place], [address] RHEUMATOID FAC < 10.0 {IU/mL} (Normal) 9-Puu-776551:44 Sjogren's Antibodies A/B Comments: [facility] (refer to report for specific site)refer to report for address and phone number Anti-SS-B < 0.2 {AI} (Normal) Range: 0.0-0.9 Anti-SS-A < 0.2 {AI} (Normal) Range: 0.0-0.9 :44 Thyroid Stim Hormone (TSH) Comments: [facility] [address] [place], [address] TSH 2.71 {uIU/mL} (Normal) Range: 0.358-3.74 5-Xxt-894627:44 Vitamin B12 1303 pg/mL (Abnormal) Comments: [facility] [address] [place], [address] Range: 211-911 :44 Vitamin D,25 Hydroxy Comments: [facility] [address] [place], [address] Vitamin D 25-OH 62.4 ng/mL (Normal) Range: 29.95-100.01 Comments: Vitamin D 25(OH) Status Range Deficiency <20 ng/mL (50nmol/L) Insuffciency 20 - 30 ng/mL (50 - 75 nmol/L) Sufficiency 30 - 100 ng/mL (75 - 250 nmol/L) Toxicity >100 ng/mL (>250 nmol/L) 5-Epw-240905:06 Basic Metabolic Profile (BMP) Comments: PLEASE FAX TO DR. CANTU [phone] [address] [place], [address] GAP 12 (Normal) Range: 5-15 CO2 26.0 [...] A.D.A. criteria.Please note revised GLUCOSE reference range mozyaydke19/02/2018. 56-Bex-85854:22 CBC W/Diff, Automated Comments: BMP TO DULCE TIMMONS.CBCD, TSH, B12 TO DR. SANGEETHA IRVIN.[facility] [address] [place], [address] Absolute Lymph 1.16 {X10_3/ul} (Normal) Range: 0.83-4.51 [...] pg/mL (Normal) Comments: BMP TO DULCE [facility].CBCD, TSH, B12 TO DR[address] SANGEETHA IRVIN.[facility] [address] [place], [address] Range: 211-911 13-Tsp-65234:20 Basic Metabolic Profile (BMP) Comments: BMP TO DULCE [facility].CBCD, TSH, B12 TO DR. SANGEETHA IRVIN.[facility] [address] [place], [place], [address] GAP 9 (Normal) Range: 5-15 CO2 27.0 [...] A.D.A. criteria.Please note revised GLUCOSE reference range padkeqyxu11/02/2018. 07-Ykq-41835:20 Thyroid Stim Hormone (TSH) Comments: BMP TO DULCE [facility].CBCD, TSH, B12 TO DR. SANGEETHA IRVIN.[facility] [address] [place], [place], [address] TSH 4.09 {uIU/mL} (Abnormal) Range: 0.358-3.74 69-Rwe-534936:23 Basic Metabolic Profile (BMP) Comments: [facility] [address] [place], [address] GAP 7 (Normal) Range: 5-15 CO2 30.0 [...] A.D.A. criteria.Please note revised GLUCOSE reference range ubralevnu08/02/2018. 31-Dec-517898:23 BNP,B-Type NATRIURETIC PEPTIDE Comments: [facility] [address] [place], [address] B-TYPE JACKIE PEP 892.7 pg/mL (Abnormal) Range: 0-100 05-Dqj-388093:23 CBC W/Diff, Automated Comments: [facility] [address] [place], [id number] Absolute Lymph 1.23 {X10_3/ul} (Normal) Range: 0.83-4.51 [...] 4.2-5.4 WBC 7.2 K/mm3 (Normal) Range: 4.4-11.0 90-Blh-641324:41 CBC W/Diff, Automated Comments: Reason for Laboratory Test .[facility] [address] [place], [place], [address] Absolute Lymph 0.85 {X10_3/ul} (Normal) Range: 0.83-4.51 [...] 4.2-5.4 WBC 5.7 K/mm3 (Normal) Range: 4.4-11.0 64-Qwm-967016:41 Comprehensive Metabolic Profil Comments: Reason for Laboratory Test .Serial Specimen #1, #2 or #3? [facility] [address]cs[address]xqf[address] [place], [place], [address] GAP 8 (Normal) Range: 5-15 CO2 28.0 [...] A.D.A. criteria.Please note revised GLUCOSE reference range cpvroatph49/02/2018. 05-Uzn-859341:41 LDH 224 U/L (Normal) Comments: Reason for Laboratory Test .Serial Specimen #1, #2 or #3? 1[facility] [address] [place], [place], [address] Range: 84-246 5-Oay-760057:41 URINE GENESIS CULTURE-IDENTIFICATN Comments: add to urine in lab; PATIENT NOT FASTINGPERFORMED BY: [facility] Ulthxp2865 [facility] [id number] Information: SRC:JUAN ([id number]) Result 1 ENTEAE (Abnormal) Comments: Enterobacter aerogenes1,000 [...] S Urine Final report Culture,Comprehensi (Abnormal) ve 63-Lyy-71460:46 AFP, Tumor Marker Comments: Is Patient ? [facility] (refer to report for specific site)refer to report for address and phone number AFP TUMOR 2253 10.0 ng/mL (Abnormal) Range: 0.0-8.3 Comments: Khanh ECLIA methodologyPerformed at: CB - [facility] [address] [place], [place] [id number] Director: Omar Hood PhD, Phone: [phone] 30-Rbq-85486:46 CBC W/Diff, Automated Comments: [facility] [address] [place], [place], [address] Absolute Lymph 0.95 {X10_3/ul} (Normal) Range: 0.83-4.51 [...] ADD T3F T4F TO BLOOD FROM 05-25-18 [facility] 5 [facility] [address]wfj[address] [place], [place], [address] GAP 9 (Normal) Range: 5-15 CO2 28.0 [...] A.D.A. criteria.Please note revised GLUCOSE reference range kzxgopadu86/02/2018. :46 Digoxin Level Comments: [facility] [address] [place], [place], [address] DIG 0.71 ng/mL (Abnormal) Range: 0.80-2.00 :46 Free T3 Comments: PLEASE ADD T3F T4F TO BLOOD FROM 05-25-[address] [place], [place], [address] FREE T3 3.2 pg/mL (Normal) Range: 2.18-3.98 :46 Hemoglobin A1c Comments: [facility] [address] [place], [place], [address] HGB A1C 5.4 % (Normal) Range: 4.2-6.3 :46 Lipid Profile Comments: PLEASE ADD T3F T4F TO BLOOD FROM 05-25-18 [facility] 5 [facility] [address]if[address]th[address] [place], [place], [address] VLDL 22 mg/dL (Normal) Range: 5-40 LDL [...] High Risk :46 Microalb:Creat Ratio,Random UR Comments: [facility] [address]xl[address] [place], [place], [address] MALB:CREAT 7.8 {mg/g_CRE} (Normal) MICROALBUMIN,UR 10.9 mg/L (Normal) UR CREAT 139.00 mg/dL (Normal) :46 T4 Free Direct Comments: PLEASE ADD T3F T4F TO BLOOD FROM 05-25-18G2 5 [facility] [address] [place] [place], [address] T4 FREE DIRECT 1.11 ng/dL (Normal) Range: 0.76-1.46 :46 Thyroid Stim Hormone (TSH) Comments: PLEASE ADD T3F T4F TO BLOOD FROM 05-25-18 THG2 5 [facility] [address]ucbjs[address] [place], [address] TSH 0.31 {uIU/mL} (Abnormal) Range: 0.358-3.74 :46 Urinalysis, Complete Comments: How was Urine Obtained? CLEAN [facility] [address]awvn[address] [place], [address] MUCUS, URINE 0 SEEN [...] :46 Vitamin B12 368 pg/mL (Normal) Comments: [facility] [address]xl[address] [place], [address] Range: 211-911 :46 Vitamin D,25 Hydroxy Comments: [facility] [address]fbug26[address] [place], [address] Vitamin D 25-OH 64.5 ng/mL (Normal) Range: 29.95-100.01 Comments: Vitamin D 25(OH) Status Range Deficiency <20 ng/mL (50nmol/L) Insuffciency 20 - 30 ng/mL (50 - 75 nmol/L) Sufficiency 30 - 100 ng/mL (75 - 250 nmol/L) Toxicity >100 ng/mL (>250 nmol/L) 81-Eum-722562:52 Urinalysis, Complete Comments: Order Date: 04/06/18Has pt arrived? YHow was Urine Obtained? [facility] [address]pdrao[address] [place], [place], [address] HYALINE CAST 5-10 SEEN {/lpf} (Normal) Range: [...] (Normal) CLARITY Cloudy (Normal) COLOR Yellow (Normal) 03-Ghw-454664:30 CBC W/Diff, Automated Comments: [facility] [address] [place], [address] OVALOCYTE RARE (Normal) MACROCYTE 1+ [...] 4.2-5.4 WBC 9.1 K/mm3 (Normal) Range: 4.4-11.0 33-Wzh-203162:30 Comprehensive Metabolic Profil Comments: [facility] [address] [place], [place], [address] GAP 12 (Normal) Range: 5-15 CO2 30.0 [...] Comments: Please note revised GLUCOSE reference range mrjwyyqvn90/02/2018. 72-Zdy-885011:30 Lactic Acid Comments: Yes/No query for Sepsis Lactate Rule [facility] [address] [place], [place], [address] LACTIC ACID 6.7 mmol/L (Abnormal) Range: 0.4-2.0 Comments: Critical Result(s) Called Lisa RIVERA at: 20:23: by: BRITTANY TORRES 98-Anz-107171:30 Partial Thromboplast Time Comments: [facility] [address] [place], [address] PTT 41.3 s (Abnormal) Range: 24.1-36.2 84-Eak-503667:30 Prothrombin Time w/INR Comments: [place] [address] [facility] [place], [address] INR 2.3 (Normal) PROTIME 25.6 s (Abnormal) Range: 11.7-14.9 26-Ris-866988:30 Troponin-I Comments: [facility] [address] [place], [address] TROPONIN-I 0.046 ng/mL (Abnormal) Comments: TROPONIN-I EXPECTED [...] angiographical evidence. PLEASE NOTE: REFERENCE RANGES EDITED 02/06/1805-Apr-201827-Qwg-829401:08 Ammonia Comments: [facility] [address] [place], [place], [address] AMMONIA 20.0 umol/L (Normal) Range: 11-32 82-Wlb-528768:08 CBC-Complete Blood Cnt No Diff Comments: [facility] [address] [place], [place], [address] MPV 10.6 fL (Normal) Range: 6.2-12.0 PLT [...] 4.2-5.4 WBC 6.6 K/mm3 (Normal) Range: 4.4-11.0 08-Mrr-145186:08 Comprehensive Metabolic Profil Comments: [facility] [address] [place], [place], [address] GAP 9 (Normal) Range: 5-15 CO2 35.0 [...] Comments: Please note revised GLUCOSE reference range rwkkxrold09/02/2018. 51-Tgi-247233:08 Differential Comment Comments: [facility] [address] [place], [place], [address] SMEAR COMMENT COMMENT (Normal) Comments: SLIDE SCANNED - 1+ ANISO NOTED. 83-Ngi-40042:55 Urinalysis, Complete Comments: How was Urine Obtained? [facility] [address]buyh[address] [place], [address] AMORPHOUS 2+ (Normal) HYALINE CAST 5-10 SEEN [...] (Normal) :55 Urine Drug Screen (VISTA) Comments: [facility] [address] [place], [address] TO BE CONFIRMED (Normal) Comments: [...] USE TESTMNEMONIC: UTCA :59 Bedside Glucose Comments: [facility] LaboratoryPoint of Bdva[address] [place] [address] BEDSIDE GLU 169 mg/dL (Abnormal) Range: 70-110 Comments: MANAGEMENT OF PATIENT CARE PER NURSING PROTOCOL :35 Basic Metabolic Profile (BMP) Comments: [facility] [address]wl[address] [place], [place], [address] GAP 16 (Abnormal) Range: 5-15 CO2 15.0 mmol/L (Abnormal) Range: 21.0-32.0 CL 104 mmol/L (Normal) Range: 98-107 K 6.2 mmol/L (Abnormal) Range: 3.5-5.1 Comments: Critical Result(s) Called at: 01:06:28 03/08/2018 by:ANSLEY STANFORD,COMMISSION ASSOCIATE NA 135 mmol/L (Abnormal) Range: 136-145 CA [...] A.D.A. criteria.Please note revised GLUCOSE reference range irfghlaej49/02/2018. 57-Ejo-943921:59 Acetaminophen (Tylenol) Level Comments: [facility] [address] [place], [place], [address] ACETAMINOPHEN 4.9 ug/mL (Abnormal) Range: 10.0-30.0 Comments: Slight Icterus, Result may be falsely decreased. 49-Abp-238417:59 Acetone Serum Comments: [facility] [address] [place], [address] ACETONE SERUM NEGATIVE (Normal) 16-Lot-609990:59 Alcohol, Blood (Medical)-Serum Comments: [facility] [address] [place], [address] SERUM ETOH 8.0 mg/dL (Normal) Comments: The serum:whole blood ethanol ratio is approximately 1.14and varies slightly with hematocrit.Medical Alcohol reference interval and critical value innon-tolerant individuals; 50 - 100 Impairment 100 Intoxication 100 - 250 Severe Poisoning 250 - 400 Deep/possible fatal coma :59 Digoxin Level Comments: [facility] [address]wt[address]upxx[address] [place], [address] DIG 0.32 ng/mL (Abnormal) Range: 0.80-2.00 60-Qos-046421:59 Lactic Acid Comments: Yes/No query for Sepsis Lactate Rule [place] [address] [place], [address] LACTIC ACID 12.4 mmol/L (Abnormal) Range: 0.4-2.0 Comments: Critical Result(s) Called at: 00:52:58 03/08/2018 by:ANSLEY OWENSCOMMISSION ASSOCIATE 83-[id number] Partial Thromboplast Time Comments: [place] [address] [place], [address] PTT 33.7 s (Normal) Range: 24.1-36.2 :59 Prothrombin Time w/INR Comments: [place] [address] [place], [address] INR 2.4 (Normal) PROTIME 26.4 s (Abnormal) Range: 11.7-14.9 :59 Salicylate Comments: [address] [place], [address] SALICYLATE < 1.7 mg/dL (Abnormal) Range: 2.8-20.0 Comments: Slight Icterus, Result may be falsely decreased. :02 Blood Gases by [facility] Comments: [facility] [id number] [place] [address] SO2 ISTAT 99 % (Normal) Range: [...] Radial (Normal) BLD GAS TYPE ART (Normal) [id number] Bedside Glucose Comments: [facility] [id number] [place] [address] BEDSIDE GLU 214 mg/dL (Abnormal) Range: 70-110 Comments: MANAGEMENT OF PATIENT CARE PER NURSING PROTOCOL [id number] Basic Metabolic Profile (BMP) Comments: [facility] [id number] [place], [address] GAP 19 (Abnormal) Range: 5-15 [...] A.D.A. criteria.Please note revised GLUCOSE reference range lbuvoxbrw92/02/2018. 49-Gbh-[id number]:37 CBC W/Diff, Automated Comments: [facility] [id number] [place], [id number] CRENATED RBC 1+ (Normal) ANISO 1+ (Normal) [...] 4.2-5.4 WBC 5.5 K/mm3 (Normal) Range: 4.4-11.0 46-[id number]:37 Lipase Comments: [facility] [id number] [place] [place], [id number] LIPASE 86 U/L (Normal) Range: 73-393 56-Mab-600718:37 Liver Profile Comments: [facility] [address] [place], [address] D BILI 1.07 mg/dL (Abnormal) Range: 0.00-0.30 T BILI 2.40 mg/dL (Abnormal) Range: 0.20-1.00 ALT 120 U/L (Abnormal) Range: 13-56 ALK P 94 U/L (Normal) Range: 45-117 AST 149 U/L (Abnormal) Range: 15-37 Comments: Moderate Hemolysis, Result may be falsely increased. GLOB 2.9 g/dL (Normal) Range: 2.2-4.2 ALB 3.0 g/dL (Abnormal) Range: 3.2-5.0 T PROT 5.9 g/dL (Abnormal) Range: 6.4-8.2 54-Kua-763160:37 Magnesium Comments: [facility] [address] [place], [address] MG 2.0 mg/dL (Normal) Range: 1.6-2.6 Comments: Moderate Hemolysis, Result may be falsely increased. 98-Xpy-982278:37 Troponin-I Comments: [facility] [address] [place], [place], [address] TROPONIN-I 0.081 ng/mL (Abnormal) Comments: TROPONIN-I EXPECTED [...] angiographical evidence. PLEASE NOTE: REFERENCE RANGES EDITED 02/06/1824-Feb-20184-Feu-961472:21 CMV ANTIBODY (60014) Comments: today; PATIENT NOT FASTINGPERFORMED BY: [facility]3]Ottkyl9009 [facility] [id number] Cytomegalovirus (CMV) Ab, IgG <0.60 U/mL (Normal) Range: 0.00-0.59 Comments: Negative <0.60 Equivocal 0.60 - 0.69 Positive >0.69 6-Got-151199:21 HEPATITIS PANEL (72907) Comments: today; PATIENT NOT FASTINGPERFORMED BY: [facility]6370 [facility] [id number] Hep C Virus Ab <0.1 {s/co_ratio} (Normal) Range: 0.0-0.9 Comments: Negative: < 0.8 Indeterminate: 0.8 - 0.9 Positive: > 0.9 . The CDC recommends that a positive HCV antibody result be followed up with a HCV Nucleic Acid Amplification test (391001). Hep B Core Ab, IgM Negative (Normal) HBsAg Screen Negative (Normal) Hep A Ab, IgM Negative (Normal) 7-Lkb-663077:21 EBV Panel (46355) Comments: today; PATIENT NOT FASTINGPERFORMED BY: [facility]6370 [facility] [id number] Interpretation: SPRCS (Normal) Comments: EBV Interpretation Chart [...] <36.0 Equivocal 36.0 - 43.9 Positive >43.9 05-Vqh-163525:19 CBC W/Diff, Automated Comments: Order Date: 02/23/18Order Info: 0184-1 - CBCDOrder Info: 14955-2 - [facility] F[address] [place], [place], [address] MACROCYTE 1+ (Normal) ANISO RARE (Normal) Absolute [...] 4.2-5.4 WBC 6.9 K/mm3 (Normal) Range: 4.4-11.0 12-Bki-926591:19 Comprehensive Metabolic Profil Comments: Order Date: 02/23/18Order Info: 0786-1 - CMPOrder Info: 1798-8 - AMYOrder Info: 3040-3 - [facility] [address]jz[address] [place], [phone] GAP 11 (Normal) Range: 5-15 CO2 25.0 [...] A.D.A. criteria.Please note revised GLUCOSE reference range sheftnmvv62/02/2018. 69-Ycl-641406:19 Erythrocyte Sed Rate Comments: Order Date: 02/23/18Order Info: 0184-1 - CBCDOrder Info: 78513-4 - [facility] [address]fk[address] [place], [address] SED RATE 16 mm/h (Normal) Range: 0-30 65-Vty-167546:19 Lipase (03731) Comments: Order Date: 02/23/18Order Info: 0786- 1 - CMPOrder Info: 1798-8 - AMYOrder Info: 3040-3 - [facility] [address]zcedn[address] [place], [address] LIPASE 92 U/L (Normal) Range: 73-393 30-Kwy-919818:19 Amylase (40482) Comments: Order Date: 02/23/18Order Info: 0786- 1 - CMPOrder Info: 1798-8 - AMYOrder Info: 3040-3 - [facility] [address]uwxpt[address] [place], [address] ARIAN 27 U/L (Normal) Range: 25-115 9-Rob-509166:15 Amylase Comments: CMP, CBCD IS FOR DR ORONA IS FOR [facility] [address]ct[address] [place], [address] ARIAN 29 U/L (Normal) Range: 25-115 1-Bjj-522439:15 CBC W/Diff, Automated Comments: CMP, CBCD IS FOR DR ORONA IS FOR [facility] [address] [place], [address] ANISO 1+ (Normal) Absolute Lymph 0.41 {X10_3/ul} [...] 4.2-5.4 WBC 5.3 K/mm3 (Normal) Range: 4.4-11.0 3-Lre-929626:15 Comprehensive Metabolic Profil Comments: CMP, CBCD IS FOR DR COLÓNT IS FOR [facility] Fazajfwdrq4232 [facility] [place], [place], [address] GAP 9 (Normal) Range: 5-15 CO2 27.0 [...] A.D.A. criteria.Please note revised GLUCOSE reference range wifysrdmw01/02/2018. 9-Uug-893221:15 Digoxin Level Comments: CMP, CBCD IS FOR DR ORONA IS FOR [facility] [address] [place], [place], [address] DIG 0.92 ng/mL (Normal) Range: 0.80-2.00 6-Lae-143882:15 Lipase Comments: [facility], CBCD IS FOR DR ORONA IS FOR [facility] [address]kkh[address] [place], [place], [address] LIPASE 101 U/L (Normal) Range: 73-393 5-Brq-125077:15 Lipid Profile Comments: [facility], CBCD IS FOR DR ORONA IS FOR [facility] [address]awye[address] [place], [place], [address] VLDL 15 mg/dL (Normal) Range: 5-40 LDL [...] 200-240 mg/dL Borderline >240 mg/dL High Risk 0-Ips-354782:15 Magnesium Comments: CMP, CBCD IS FOR DR ORONA IS FOR [facility] [address] [place], [address] MG 1.8 mg/dL (Normal) Range: 1.6-2.6 5-Rsf-092227:15 Microalb:Creat Ratio,Random UR Comments: CMP, CBCD IS FOR DR ORONA IS FOR [facility] [address] [place], [address] MALB:CREAT 34.3 {mg/g_CRE} (Abnormal) MICROALBUMIN,UR 58.6 mg/L (Normal) UR CREAT 171.00 mg/dL (Normal) 6-Mhp-564239:15 Thyroid Stim Hormone (TSH) Comments: CMP, CBCD IS FOR DR ORONA IS FOR [facility] [address]xl[address] [place], [address] TSH 1.84 {uIU/mL} (Normal) Range: 0.358-3.74 1-Bsr-620122:15 Vitamin B12 383 pg/mL (Normal) Comments: CMP, CBCD IS FOR DR ORONA IS FOR [facility] [address] [place], [address] Range: 211-911 9-Kkc-027063:15 Vitamin D,25 Hydroxy Comments: CMP, CBCD IS FOR DR ORONA IS FOR [facility] Vfckbhmjsu9[address] [place], [address] Vitamin D 25-OH 72.0 ng/mL (Normal) Range: 29.95-100.01 Comments: Vitamin D 25(OH) Status Range Deficiency <20 ng/mL (50nmol/L) Insuffciency 20 - 30 ng/mL (50 - 75 nmol/L) Sufficiency 30 - 100 ng/mL (75 - 250 nmol/L) Toxicity >100 ng/mL (>250 nmol/L) 05-Eei-363552:14 Blood Glucose , Office (98149) Blood Glucose , Office 137 (Normal) 09-Hnn-132176:14 HgA1C , Office (66477) HgA1C , Office 6.1 % (Normal) Range: 4.6 - 7.1 :35 CBC W/Diff, Automated Comments: [facility] [address] [place], [place], [address] Absolute Lymph 1.30 {X10_3/ul} (Normal) Range: 0.83-4.51 [...] Metabolic Profil Comments: Reason for Laboratory Test [facility] [address] [place], [address] GAP 8 (Normal) Range: 5-15 CO2 31.0 mmol/L (Normal) Range: 21.0-32.0 CL 99 mmol/L (Normal) Range: 98-107 K 3.4 mmol/L (Abnormal) Range: 3.5-5.1 NA 138 mmol/L (Normal) Range: 136-145 T BILI 0.70 mg/dL (Normal) Range: 0.20-1.00 ALT 27 U/L (Normal) Range: 13-56 Comments: Please note revised ALT reference range ileqjapsk81/28/2018. ALK P 102 U/L (Normal) Range: 45-117 [...] A.D.A. criteria.Please note revised GLUCOSE reference range arswotyew34/02/2018. 11-Eea-10015:33 LDH 198 U/L (Normal) Comments: Reason for Laboratory Test OVSerial Specimen #1, #2 or #3? [facility] [address] [place], [address] Range: 84-246 72-Zgp-449379:15 Culture, Urine Comments: [facility] [address] [place], [place], [address] CUUR See Note (Normal) Comments: VERBAL ORDER DR. IRVIN'S OFFICE Urine CultureORGANISM 1: Mixed Gram Positive OrganismsColony Count 11,000-25,000MIX CULTURE Mixed contaminants. Submit a new specimen if indicated. 58-Dky-255825:11 CBC W/Diff, Automated Comments: [facility] [address] [place], [place], [address] Absolute Lymph 1.34 {X10_3/ul} (Normal) Range: 0.83-4.51 [...] 4.2-5.4 WBC 5.4 K/mm3 (Normal) Range: 4.4-11.0 56-Uil-350613:11 Comprehensive Metabolic Profil Comments: Comments: [facility] [address]yg[address] [place], [address] GAP 7 (Normal) Range: 5-15 CO2 28.0 mmol/L (Normal) Range: 21.0-32.0 CL 100 mmol/L (Normal) Range: 98-107 K 3.9 mmol/L (Normal) Range: 3.5-5.1 NA 135 mmol/L (Abnormal) Range: 136-145 T BILI 0.70 mg/dL (Normal) Range: 0.20-1.00 ALT 31 U/L (Normal) Range: 13-56 Comments: Please note revised ALT reference range jwcslcegk76/28/2018. ALK P 110 U/L (Normal) Range: 45-117 [...] A.D.A. criteria.Please note revised GLUCOSE reference range kwekwqwrh60/02/2018. 26-Gmk-407090:10 Urinalysis, Complete Comments: ORDERED UACDR.JACINDA ORDERED CMP AND CBCDComments: clean catchComments: clean catchHow was Urine Obtained? FEDERAL APPELLATE CLERK TO SPECIFYMer[facility] Health [facility] [address] [place], [address] MUCUS, URINE RARE {/hpf} (Normal) [...] (Normal) CLARITY Cloudy (Normal) COLOR Yellow (Normal) 9-Cnc-981717:42 ,Serum,hCG Quali. Comments: Comments: use blood in [facility] [address] [place], [address] HCGSQUAL NEGATIVE {Negative} (Normal) Range: 0-9 Nonpreg HCG Qual triggr 2 m[iU]/mL (Normal) 4-Xlr-067858:41 Basic Metabolic Profile (BMP) Comments: [facility] [address]rk[address] [place], [address] GAP 10 (Normal) Range: 5-15 [...] A.D.A. criteria.Please note revised GLUCOSE reference range egersicuk38/02/2018. 3-Unm-933982:41 CBC-Complete Blood Cnt No Diff Comments: [facility] [address] [place], [place], [address] MPV 9.6 fL (Normal) Range: 6.2-12.0 PLT [...] 4.2-5.4 WBC 8.7 K/mm3 (Normal) Range: 4.4-11.0 2-Dqy-522322:41 Prothrombin Time w/INR Comments: [facility] [address] [place], [place], [address] INR 1.0 (Normal) PROTIME 12.9 s (Normal) Range: 11.7-14.9 03-Nov-20179:00 Culture, Urine Comments: [facility] Fxvjlbwvbj4266 [facility] [place], [place], [address] CUUR See Note (Normal) Comments: Urine CultureORGANISM [...] &lt ;=20 S(NF) indicates non-formulary drug at [facility]. Approval by Infectious Disease Specialist required before non- formulary drugs may be ordered and/or dispensed. :27 AFP, Tumor Marker Comments: Is Patient ? NPatient's Weight (LBS.): 124Number of Fetuses: 0[facility] (refer to report for specific site)refer to report for address and phone number AFP TUMOR 2253 6.8 ng/mL (Normal) Range: 0.0-8.3 Comments: [employer] ECLIA methodologyPerformed at: [facility] [address] [id number] Director: Omar Hood PhD, Phone: [phone] :27 CBC W/Diff, Automated Comments: [facility] [address] [place], [place], [address] Absolute Lymph 1.47 {X10_3/ul} (Normal) Range: 0.83-4.51 [...] 4.2-5.4 WBC 6.0 K/mm3 (Normal) Range: 4.4-11.0 87-Jlg-67720:27 Comprehensive Metabolic Profil Comments: [facility] [address] [place], [place], [address] GAP 9 (Normal) Range: 5-15 CO2 28.0 [...] Range: 70-110 :27 Microalb:Creat Ratio,Random UR Comments: [facility] [address] [place], [place], [address] MALB:CREAT 17.4 {mg/g_CRE} (Normal) MICROALBUMIN,UR 37.5 mg/L (Normal) UR CREAT 215.00 mg/dL (Normal) :40 CBC W/Diff, Automated Comments: [facility] [address] [place], [place], [address] Absolute Lymph 1.60 {X10_3/ul} (Normal) Range: 0.83-4.51 [...] 4.2-5.4 WBC 10.9 K/mm3 (Normal) Range: 4.4-11.0 68-Pcd-53456:39 Comprehensive Metabolic Profil Comments: Order Date: 12/06/16Order Info: 0786-1 - *CMP Complete Metabolic PanelWWooster Community Hospital [address]zsf4599 [place], [place], [address] GAP 10 (Normal) Range: 5-15 CO2 27.0 [...] per A.D.A. criteria. :15 Culture, Urine Comments: [facility] [address] [place], [address] CUUR See Note (Normal) Comments: [...] $ <=20 S(NF) indicates non-formulary drug at [facility]. Approval by Infectious Disease Specialist required before non-formulary drugs may be ordered and/or dispensed. :35 HgA1C , Office (72732) HgA1C , Office 6.5 % (Normal) Range: 4.6 - 7.1 :07 AFP, Tumor Marker Comments: Is Patient ? [facility] (refer to report for specific site)refer to report for address and phone number AFP TUMOR 2253 8.5 ng/mL (Abnormal) Range: 0.0-8.3 Comments: [employer] ECLIA methodologyPerformed at: [facility] [address] [id number] Director: Omar Hood PhD, Phone: [phone] :07 CBC W/Diff, Automated Comments: [facility] [address] [place], [address] Absolute Lymph 1.17 {X10_3/ul} (Normal) [...] Range: 4.4-11.0 31-May-20179:07 Comprehensive Metabolic Profil Comments: [facility] [address] [place], [place], [address] GAP 9 (Normal) Range: 5-15 CO2 28.0 [...] the [place] Food and Drug Administration.Performed at: [place] [id number] [place], [place] [id number] Director: Zia Jarvis MD, Phone: [phone] INS RES/DIAB RK . (Normal) LDL SIZE [...] . (Normal) 31-May-20179:07 Vitamin D,25 Hydroxy Comments: [facility] [address] [place], [address] Vitamin D 25-OH 61.8 ng/mL (Normal) Comments: Vitamin D 25(OH) Status Range Deficiency <20 ng/mL (50nmol/L) Insuffciency 20 - 30 ng/mL (50 - 75 nmol/L) Sufficiency 30 - 100 ng/mL (75 - 250 nmol/L) Toxicity >100 ng/mL (>250 nmol/L) :48 Liver Profile Comments: [facility] [address] [place], [address] D BILI 0.14 mg/dL (Normal) Range: 0.00-0.30 T BILI 0.50 mg/dL (Normal) Range: 0.20-1.00 ALT 57 U/L (Normal) Range: 12-78 ALK P 94 U/L (Normal) Range: 45-117 AST 40 U/L (Abnormal) Range: 15-37 GLOB 2.8 g/dL (Normal) Range: 2.3-3.5 ALB 3.9 g/dL (Normal) Range: 3.4-5.0 T PROT 6.7 g/dL (Normal) Range: 6.4-8.2 :45 Potassium Comments: [facility] [address] [place], [address] K 4.3 mmol/L (Normal) Range: 3.5-5.1 :35 CBC W/Diff, Automated Comments: [address] [place], [place], [address] Absolute Lymph 1.24 {X10_3/ul} (Normal) Range: 0.83-4.51 [...] 4.2-5.4 WBC 3.6 K/mm3 (Abnormal) Range: 4.4-11.0 22-Qnk-73015:35 Comprehensive Metabolic Profil Comments: [facility] [address] [place], [address] GAP 10 (Normal) Range: 5-15 CO2 31.0 [...] ASPIRATION (SLIDES ONLY) See Note (Normal) Comments: [facility] [address] [place], [address] 0 Comments: Patient: IFEOMA ASHRAF : 1965 (52/F) Acct Num: [id number] Phys: Janelle KING,Alejandro Unit Num: [id number] Loc: LABSPEC Specimen: [id number] Received: 03/18/17 - 1127 Spec Ty pe: ASPIRATION TISSUES TISSUES: COMMENT Correlation with clinical, radiologic findings and appropriate follow up are necessary. CYTOLOGY GROSS Received are ten smears labeled wi th the patient's name and designated per the requisition as left thyroid FNA. Submitted for staining. / 03/18/17 TC:5 CPT: 88007 CYTOLOGY STUDY Slides are reviewed. The specimen [...] <signature on file> 01-Mar-20179:30 HEPATITIS C ANTIBODY (27665) Comments: PATIENT NOT FASTINGPERFORMED BY: [facility]6370 [facility] [id number] Hep C Virus Ab <0.1 {s/co_ratio} (Normal) Range: 0.0-0.9 Comments: Negative: < 0.8 Indeterminate: 0.8 - 0.9 Positive: > 0.9 . The CDC recommends that a positive HCV antibody result be followed up with a HCV Nucleic Acid Amplification test (616495). :30 Potassium Serum (96735) Comments: PATIENT NOT FASTINGPERFORMED BY: [facility]6370 [facility] [id number] Potassium, Serum 4.8 mmol/L (Normal) Range: 3.5-5.2 :29 HgA1C , Office (53672) HgA1C , Office 7.9 % (Abnormal) Range: 4.6 - 7.1 :53 CBC W/Diff, Automated Comments: [facility] [address] [place], [place], [address] Absolute Lymph 1.57 {X10_3/ul} (Normal) Range: 0.83-4.51 [...] 4.2-5.4 WBC 4.8 K/mm3 (Normal) Range: 4.4-11.0 73-Tsb-43688:53 Comprehensive Metabolic Profil Comments: [facility] [address] [place], [address] GAP 11 (Normal) Range: 5-15 CO2 32.0 [...] per A.D.A. criteria. :53 Lipid Profile Comments: [facility] [address] [place], [address] VLDL 37 mg/dL (Normal) Range: 5-40 LDL [...] High Risk :53 Microalb:Creat Ratio,Random UR Comments: [facility] [address] [place], [address] MALB:CREAT 19.7 {mg/g_CRE} (Normal) MICROALBUMIN,UR 27.8 mg/L (Normal) UR CREAT 141.00 mg/dL (Normal) :53 Thyroid Stim Hormone (TSH) Comments: [facility] [address]fc[address] [place], [address] TSH 2.39 {uIU/mL} (Normal) Range: 0.358-3.74 :53 Vitamin D,25 Hydroxy Comments: [facility] [address], [address] Vitamin D 25-OH 79.9 ng/mL (Normal) Comments: Vitamin D 25(OH) Status Range Deficiency <20 ng/mL (50nmol/L) Insuffciency 20 - 30 ng/mL (50 - 75 nmol/L) Sufficiency 30 - 100 ng/mL (75 - 250 nmol/L) Toxicity >100 ng/mL (>250 nmol/L) 05-Obq-628043:08 CBC W/Diff, Automated Comments: [facility] [address] [place], [place], [address] Absolute Lymph 2.04 {X10_3/ul} (Normal) Range: 0.83-4.51 [...] 4.2-5.4 WBC 9.0 K/mm3 (Normal) Range: 4.4-11.0 15-Zpr-155136:08 Comprehensive Metabolic Profil Comments: [facility] [address] [place], [place], [address] GAP 9 (Normal) Range: 5-15 CO2 27.0 [...] 126 mg/dLsuggests DIABETES MELLITUS per A.D.A. criteria. 19-Hov-393023:00 Culture, Urine Comments: [facility] [address] [place], [address] CUUR See Note (Normal) Comments: Urine CultureORGANISM 1: Mixed Gram Positive OrganismsColony Count >100,000MIX CULTURE Mixed contaminants. Submit a new specimen if indicated. 0-Ijb-772699:25 CBC W/Diff, Auto - EPLAB Comments: At [facility] Medical Oncologypatients receive CBC w/auto Differential ONLY. Physicianwill place an order for a manual differential or Pathologistreview at his discretion. [facility]. [address] [place] [address] MOVIE EDITOR: MATEO CASTANEDA DO PH:[phone] Health U[facility]ana Hospital [address] [place], [address] Absolute Lymph 1.42 {X10_3/uL} (Normal) Range: [...] 4.2-5.4 WBC 6.3 K/mm3 (Normal) Range: 4.4-11.0 4-Tvo-876390:25 Comprehensive Metabolic Profil Comments: Order Date: 06/07/16Order Date: 16Serial Specimen #1, #2 or #3? 1[facility] [address]vnvquzc[address] [place], [address] GAP 11 (Normal) Range: 5-15 CO2 [...] 200 mg/dLsuggests DIABETES MELLITUS per A.D.A. criteria. 7-Gsz-210959:25 LDH 208 U/L (Normal) Comments: Order Date: 06/07/16Order Date: 16Serial Specimen #1, #2 or #3? [address] [place] [address] [address] [place], [place], [address] Range: 84-246 5-Sun-327127:25 Uric Acid Comments: Order Date: 06/07/16Order Date: 16Serial Specimen #1, #2 or #3? [address] [place] [address] Ul[address]uzr8864 [facility] [place], [place], [address] URIC 3.8 mg/dL (Normal) Range: 2.6-6.0 Comments: The drugs N-Acetylcysteine and Metamizole may falsely deressthis assay. :10 HgA1C , Office (19220) HgA1C , Office 8.0 % (Abnormal) Range: 4.6 - 7.1 :10 Blood Glucose , Office (49230) Blood Glucose , Office 223 (Normal) :24 AFP, Tumor Marker Comments: Is Patient ? [facility] (refer to report for specific site)refer to report for address and phone number AFP TUMOR 2253 8.5 ng/mL (Abnormal) Range: 0.0-8.3 Comments: [employer] ECLIA methodologyPerformed at: [facility] [place] [id number] Director: Omar Hood PhD, Phone: [phone] :24 CBC W/Diff, Automated Comments: [facility] [address] [place], [place], [address] Absolute Lymph 1.35 {X10_3/ul} (Normal) Range: 0.83-4.51 [...] 4.2-5.4 WBC 4.1 K/mm3 (Abnormal) Range: 4.4-11.0 47-Msv-73620:24 Comprehensive Metabolic Profil Comments: [facility] [address] [place], [place], [address] GAP 9 (Normal) Range: 5-15 CO2 27.0 [...] 126 mg/dLsuggests DIABETES MELLITUS per A.D.A. criteria. 79-Wuf-66383:24 NMR Lipoprofile Comments: [facility] (refer to report for specific site)refer [...] the US Food and Drug Administration.Performed at: [facility] n[address] [place], [place] [id number] Director: Zia Jarvis MD, Phone: [phone] INS RES/DIAB RK . (Normal) LDL SIZE [...] mg/dL (Normal) Range: 100-199 LIPIDS . (Normal) 16-Svr-784739:53 CBC W/Diff, Automated Comments: [facility] [address] [place], [place], [address] Absolute Lymph 1.41 {X10_3/ul} (Normal) Range: 0.83-4.51 [...] 4.2-5.4 WBC 12.2 K/mm3 (Abnormal) Range: 4.4-11.0 16-Eou-992906:53 Comprehensive Metabolic Profil Comments: [facility] [address] [place], [place], [address] GAP 13 (Normal) Range: 5-15 CO2 24.0 [...] A.D.A. criteria. :42 CBC W/Diff, Automated Comments: [facility] [address]taa[address] [place], [place], [address] Absolute Lymph 1.92 {X10_3/ul} (Normal) Range: 0.83-4.51 [...] Range: 4.4-11.0 :42 Comprehensive Metabolic Profil Comments: [facility] [address] [place], [place], [address] GAP 11 (Normal) Range: 5-15 CO2 25.0 [...] :55 Magnesium Comments: Order Date: 06/07/16Order Date: 06/07/16[facility] [address]tll[address] [place], [place], [address] MG 2.0 mg/dL (Normal) Range: 1.8-2.4 :57 CBC W/Diff, Auto - EPLAB Comments: At [facility] Medical Oncologypatients receive CBC w/auto Differential ONLY. Physicianwill place an order for a manual differential or Pathologistreview at his discretion. [facility]. [address] [place] [address] [address] MOVIE EDITOR: MATEO CASTANEDA DO PH:[phone] Health Urbana Hospital [address]uyi[address] [place], [address] Absolute Lymph 1.38 {X10_3/uL} (Normal) [...] Profil Comments: Order Date: 06/07/16OV Order #: [id number] Specimen #1, #2 or #3? 1 [id number] [facility] [address]avpzp[address] [place], [place], [address] GAP 13 (Normal) Range: 5-15 CO2 24.0 [...] (Normal) Comments: Order Date: 06/07/16 Order #: [id number] Specimen #1, #2 or #3? [id number] [place] [address] [place], [address] Range: 84-246 :56 Magnesium Comments: Order Date: 06/07/16 Order #: [id number] Specimen #1, #2 or #3? [id number] [place] [id number] [place], [address] MG 1.5 mg/dL (Abnormal) Range: 1.8-2.4 :56 Uric Acid Comments: Order Date: 06/07/16 Order #: [id number] Specimen #1, #2 or #3? [address] [place] [id number] [place], [place], [id number] URIC 4.8 mg/dL (Normal) Range: 2.6-6.0 Comments: The drugs N-Acetylcysteine and Metamizole may falsely deressthis assay. :30 Liver Profile Comments: [facility] [id number] [place], [place], [id number] D BILI 0.13 mg/dL (Normal) Range: 0.00-0.30 T BILI 0.40 mg/dL (Normal) Range: 0.20-1.00 ALT 60 U/L (Normal) Range: 12-78 ALK P 126 U/L (Normal) Range: 50-136 AST 37 U/L (Normal) Range: 15-37 GLOB 2.7 g/dL (Normal) Range: 2.3-3.5 ALB 3.4 g/dL (Normal) Range: 3.4-5.0 T PROT 6.1 g/dL (Abnormal) Range: 6.4-8.2 :33 CBC W/AUTO DIFF WBC Comments: PATIENT NOT FASTINGPERFORMED BY: [facility] [id number] [facility] [id number] Information: NURSE DRAW (86146) Immature Grans (Abs) 0.0 {x10E3/uL} (Normal) Range: [...] COMPREHENSIVE Comments: PATIENT NOT FASTINGPERFORMED BY: [facility] [id number] [facility] [facility] [id number] (44952) ALT (SGPT) 41 [iU]/L (Abnormal) Range: 0-32 [...] (Abnormal) Range: 65-99 :09 HgA1C , Office (78710) HgA1C , Office 7.0 % (Normal) Range: 4.6 - 7.1 :14 AFP, Tumor Marker Comments: Is Patient ? [facility] (refer to report for specific site)refer to report for address and phone number AFP TUMOR 2253 7.7 ng/mL (Normal) Range: 0.0-8.3 Comments: [employer] ECLIA methodologyPerformed at: [facility] [place] [id number] Director: Omar Hood PhD, Phone: [phone] :[phone] CBC W/Diff, Automated Comments: [facility] [address] [place], [place], [phone] ; will review on 05/17 Absolute Lymph [...] 4.2-5.4 WBC 4.3 K/mm3 (Abnormal) Range: 4.4-11.0 37-Hhk-38547:14 Comprehensive Metabolic Profil Comments: [facility] Q[address]zy[address] [place], [address] GAP 7 (Normal) Range: 5-15 CO2 28.0 [...] per A.D.A. criteria. :14 Lipid Profile Comments: [facility] L[address]cjc[address]lp[address] [place], [phone] VLDL 36 mg/dL (Normal) Range: 5-40 LDL [...] High Risk :14 Microalb:Creat Ratio,Random UR Comments: [facility] [address] [place], [id number] ; will review on 05/17 MALB:CREAT 14.6 {mg/g_CRE} (Normal) MICROALBUMIN,UR 23.4 mg/L (Normal) UR CREAT 160.00 mg/dL (Normal) :14 Thyroid Stim Hormone (TSH) Comments: [facility] Kn[address]wrkmm[address] [place], [address] TSH 1.89 {uIU/mL} (Normal) Range: 0.358-3.74 :14 Vitamin D,25 Hydroxy Comments: [facility] Wvlmerdlfm[address] [place], [address] ; will review on 05/17 Vitamin D 25-OH 53.2 ng/mL (Normal) Comments: Vitamin D 25(OH) Status Range Deficiency <20 ng/mL (50nmol/L) Insuffciency 20 - 30 ng/mL (50 - 75 nmol/L) Sufficiency 30 - 100 ng/mL (75 - 250 nmol/L) Toxicity >100 ng/mL (>250 nmol/L) :23 CBC W/Diff, Automated Comments: [facility] [address] [place], [place], [address] Absolute Lymph 1.65 {X10_3/ul} (Normal) Range: 0.83-4.51 [...] Range: 4.4-11.0 :23 Comprehensive Metabolic Profil Comments: [facility] F[address]elszzp[address] [place], [place], [address] GAP 9 (Normal) Range: 5-15 CO2 30.0 [...] 126 mg/dLsuggests DIABETES MELLITUS per A.D.A. criteria. 85-Adi-157457:07 HgA1C , Office (32463) HgA1C , Office 8.5 % (Abnormal) Range: 4.6 - 7.1 :15 CBC W/Diff, Automated Comments: [facility] [address] [place], [place], [address] Absolute Lymph 1.76 {X10_3/ul} (Normal) Range: 0.83-4.51 [...] 4.2-5.4 WBC 6.7 K/mm3 (Normal) Range: 4.4-11.0 18-Xyn-16763:15 Comprehensive Metabolic Profil Comments: [facility] Pnxjbgytcf87[address] [place], [place], [address] GAP 13 (Normal) Range: 5-15 CO2 23.0 [...] 200 mg/dLsuggests DIABETES MELLITUS per A.D.A. criteria. 59-Fin-23535:15 Lipid Profile Comments: [facility] Bhvaucghkh2023 [facility] [place], [place], [address] VLDL 45 mg/dL (Abnormal) Range: 5-40 LDL [...] High Risk :15 Vitamin D,25 Hydroxy Comments: [facility] Zmynbarcbk7725 [facility] [place], [place], [phone] Vitamin D 25-OH 28.8 ng/mL (Normal) Comments: Vitamin D 25(OH) Status Range Deficiency <20 ng/mL (50nmol/L) Insuffciency 20 - 30 ng/mL (50 - 75 nmol/L) Sufficiency 30 - 100 ng/mL (75 - 250 nmol/L) Toxicity >100 ng/mL (>250 nmol/L); ADDENDA: non-emergent till apt :35 CBC W/Diff, Automated Comments: [facility] [address] [place], [place], [address] Absolute Lymph 1.26 {X10_3/ul} (Normal) Range: 0.83-4.51 [...] Range: 4.4-11.0 :35 Comprehensive Metabolic Profil Comments: [facility] [address] [place], [place], [address] GAP 14 (Normal) Range: 5-15 CO2 26.0 [...] 200 mg/dLsuggests DIABETES MELLITUS per A.D.A. criteria. 66-Omp-15171:0 ASPIRATION (SLIDES ONLY) See Note (Normal) Comments: [facility] [address]hg[address] [place], [place], [phone] 0 Comments: Patient: IFEOMA ASHRAF : 1965 (50/F) Acct Num: [id number] Phys: Janelle KING,Alejandro Unit Num: [id number] Loc: LABSPEC Specimen: [id number] Received: 01/06/16 112 Spec Ty pe: ASPIRATION TISSUES TISSUES: COMMENT Correlation with clinical, radiologic findings and appropriate follow up are necessary. CYTOLOGY GROSS Received are 10 smears labeled wit h the patient's name and designated per the requisition as fine needle aspiration left thyroid. Submitted for staining. 01/06/16 TC:5 CPT:77264 CYTOLOGY STUDY Slides are reviewed. The spe [...] Signed Toni Yepez 01/07/16 <signature on file> 5-Vdd-771947:29 CBC W/Diff, Auto - EPLAB Comments: At [facility] Medical Oncologypatients receive CBC w/auto Differential ONLY. Physicianwill place an order for a manual differential or Pathologistreview at his discretion. [facility]. [address] [place] [address] [address] MOVIE EDITOR: MATEO CASTANEDA DO PH:[phone] Health [facility] Lcaxcrxwbi[address] [place], [place], [phone] Absolute Lymph 1.49 {X10_3/uL} (Normal) Range: 0.83-4.51 [...] 4.2-5.4 WBC 4.6 K/mm3 (Normal) Range: 4.4-11.0 7-Yuk-616959:28 Comprehensive Metabolic Profil Comments: Serial Specimen #1, #2 or #3? 1[facility] [address]lebw[address] [place], [place], [address] GAP 8 (Normal) Range: 5-15 CO2 26.0 [...] 126 mg/dLsuggests DIABETES MELLITUS per A.D.A. criteria. :28 LDH 213 U/L (Normal) Comments: Serial Specimen #1, #2 or #3? [address] [place] [address] [address] [place], [address](556) Range: 84-246 7-Lmw-527569:28 Magnesium Comments: Serial Specimen #1, #2 or #3? [address] [place] [address] [address]cyk[address] [place], [address] MG 1.6 mg/dL (Abnormal) Range: 1.8-2.4 :28 Uric Acid Comments: Serial Specimen #1, #2 or #3? [address] [place] [address] [address] [place], [address] URIC 4.8 mg/dL (Normal) Range: 2.6-6.0 26-Nov-20159:36 Miscellaneous Lab Procedure Comments: Comments: [id number] URINE TOX,RUN LOWEST TESTTest(s) Ordered: [id number] URINE TOX,RUN LOWEST TESTMer[facility] [address]ufcku50[address] [place], [place], [address] [facility] Comments: [id number] 6+OXYCODONE-BUND (ng/mL)DRUG RESULT SCREEN CUTOFF____ Amphetamines,Urine Negat LAB (Normal) scott ng/mL 1000Amphetamine test includes Amphetamine and Methamphetamine.Barbiturates Negative ng/mL 200Benzodiazepines Negative ng/mL 200Cannabinoid TEST Negative ng/mL 20Cocaine (Metab) Negative ng/mL 300Opiates Positive ng/mL 300 Opiates test includes Codeine, Morphine, Hydromorphone, [place] codone.Please Note:Confirmation performed by Mass SpectrometryCodeine NegativeMorphine NegativeHydromorphone NegativeHydrocodone Positive Hydrocodone Confirm 1950 ng/mL 300Oxycodone/Oxymorphone,Urine Negative ng/mL 300 Test includes Oxydodone and Oxymorphone. TESTI NG PERFORMED AT [facility]. ORIGINAL REPORT ON FILE IN LAB CONTAINS ADDITIONAL TEST SITE INFORMATION. :36 Urine Drug Screen (VISTA) Comments: Comments: [id number] URINE TOX,RUN LOWEST TESTList of Drugs Taken or Suspected? [facility] Cgbzustibl8765 [place], [place], [phone] ; ordered by Basali THC NEGATIVE (Normal) [...] MUST BE ORDERED SEPARATELY. USE TESTMNEMONIC: [facility] [place] 00-Xvk-140776:20 HgA1C , Office (21879) HgA1C , Office 7.3 % (Abnormal) Range: 4.6 - 7.1 :13 AFP, Tumor Marker Comments: Is Patient ? [facility] (refer to report for specific site)refer to report for address and phone number AFP TUMOR 2253 6.4 ng/mL (Normal) Range: 0.0-8.3 Comments: Khanh ECLIA methodologyPerformed at: [facility] Hbzrvp5760 [place], [place] [id number] Director: Omar Hood PhD, Phone: [phone] :13 CBC W/Diff, Automated Comments: [facility] Aw[address]osqo[address] [place], [place], [address] Absolute Lymph 1.59 {X10_3/ul} (Normal) Range: 0.83-4.51 [...] Range: 4.4-11.0 :13 Comprehensive Metabolic Profil Comments: [facility] [address]cpjhrhvmi[address] [place], [place], [address] GAP 10 (Normal) Range: 5-15 CO2 24.0 [...] per A.D.A. criteria. :13 Lipid Profile Comments: [facility] [address]ivcamh[address] [place], [place], [address] ; non-emergent and pt has a f/u [...] High Risk :13 Microalb:Creat Ratio,Random UR Comments: [facility] [address]zpdddib[address] [place], [address] MALB:CREAT 17.0 {mg/g_CRE} (Normal) MICROALBUMIN,UR 43.7 mg/L (Normal) UR CREAT 257.00 mg/dL (Normal) :13 Thyroid Stim Hormone (TSH) Comments: [facility] [address] [place], [address] TSH 1.82 {uIU/mL} (Normal) Range: 0.358-3.74 :13 Vitamin D,25 Hydroxy Comments: [facility] [address]zqos[address] [place], [place], [address] ; will review at 11/10 appt Vitamin D 25-OH 39.8 ng/mL (Normal) Comments: Vitamin D 25(OH) Status Range Deficiency <20 ng/mL (50nmol/L) Insuffciency 20 - 30 ng/mL (50 - 75 nmol/L) Sufficiency 30 - 100 ng/mL (75 - 250 nmol/L) Toxicity >100 ng/mL (>250 nmol/L) :40 CBC W/Diff, Automated Comments: [facility] Btcbbfsiad[address] [place], [address] Absolute Lymph 1.47 {X10_3/ul} (Normal) [...] 4.2-5.4 WBC 4.7 K/mm3 (Normal) Range: 4.4-11.0 27-Jqa-98248:40 Comprehensive Metabolic Profil Comments: [facility] Ufc[address] [place], [place], [address] GAP 13 (Normal) Range: 5-15 CO2 24.0 [...] per A.D.A. criteria. :49 HgA1C , Office (33364) HgA1C , Office 7.8 % (Abnormal) Range: 4.6 - 7.1 00-Auh-717084:09 CBC W/Diff, Automated Comments: [facility] [address] [place], [address] Absolute Lymph 1.07 {X10_3/ul} (Normal) Range: 0.83-4.51 [...] 4.2-5.4 WBC 5.3 K/mm3 (Normal) Range: 4.4-11.0 93-Jhx-585768:09 Comprehensive Metabolic Profil Comments: [facility] Qhhdqhsfzg4647 [address] [place], [place], [address] GAP 7 (Normal) Range: 5-15 CO2 28.0 [...] 200 mg/dLsuggests DIABETES MELLITUS per A.D.A. criteria. 8-Ryq-250396:42 CBC W/Diff, Automated Comments: At [facility] Medical Oncologypatients receive CBC w/auto Differential ONLY. Physicianwill place an order for a manual differential or Pathologistreview at his discretion. [facility]. [address] [place] [address] [place] [address] MOVIE EDITOR: MATEO CASTANEDA DO PH:[phone] performed at:[facility] [address] [place], [place] [address] Absolute Lymph 1.60 {X10_3/ul} (Normal) Range: 0.83-4.51 [...] 4.2-5.4 WBC 7.0 K/mm3 (Normal) Range: 4.4-11.0 9-Moq-311672:42 Comprehensive Metabolic Profil Comments: Serial Specimen #1, #2 or #3? 1Test performed at:[facility] Eyldvzramp[address] [place] [address] GAP 9 (Normal) Range: 5-15 CO2 25.0 [...] Comments: Please note revised CREATININE reference range ljwdhivkv30/22/2015. BUN 20 mg/dL (Abnormal) Range: 7-18 GLU 118 mg/dL (Abnormal) Range: 70-110 Comments: Fasting Glucose result from 110 to <126 mg/dLsuggests IMPAIRED HOMEOSTASIS per A.D.A. criteria. 5-Dsm-320044:42 LDH 133 U/L (Normal) Comments: Serial Specimen #1, #2 or #3? 1Test performed at:[facility] [address] [place] [address] Range: 84-246 3-Fwr-054786:42 Uric Acid Comments: Serial Specimen #1, #2 or #3? 1Test performed at:[facility] Tbwwvoohio88[address] [place] [address] URIC 4.6 mg/dL (Normal) Range: 2.6-6.0 :02 CBC W/Diff, Automated Comments: Test performed at:[facility] [address] [place] [address] ; handled by vicki Absolute Lymph 1.23 [...] 4.2-5.4 WBC 4.1 K/mm3 (Abnormal) Range: 4.4-11.0 2-Bpv-024705:02 Comprehensive Metabolic Profil Comments: Test performed at:[facility] [address]qtooaqox[address] [place], [place] [address] GAP 12 (Normal) Range: 5-15 CO2 23.0 [...] Comments: Please note revised CREATININE reference range ibfqwltwc38/22/2015. BUN 11 mg/dL (Normal) Range: 7-18 GLU 214 mg/dL (Abnormal) Range: 70-110 Comments: Glucose result greater than or equal to 200 mg/dLsuggests DIABETES MELLITUS per A.D.A. criteria. 88-Qwv-391108:49 VITAMIN B-12 (CYANOCOBALAMIN) Comments: PATIENT NOT FASTINGPERFORMED BY: [facility]3]Bcnrvs6289 [facility] [id number] (29275) Vitamin B12 464 pg/mL (Normal) Range: 211-946 :49 Vitamin D Hydroxy (17445) Comments: PATIENT NOT FASTINGPERFORMED BY: [facility] Awwhgx9753 [facility] [id number] Vitamin D, 25-Hydroxy 11.5 ng/mL (Abnormal) Range: 30.0-100.0 Comments: Vitamin D deficiency has been defined by the [place] ofMedicine and an Endocrine Society practice guideline as alevel of serum 25-OH vitamin D less than 20 ng/mL (1,2).The Endocrine Society went on to further define vitamin Dinsufficiency as a level between 21 and 29 ng/mL (2).1. IOM ([place] of Medicine). 2010. Dietary reference intakes for calcium and D. [place]: The National Academies Press.2. Sami MF, Sophie MOORE, Xiomara LARES, et al. Evaluation, treatment, and prevention of vitamin D deficiency: an Endocrine Society clinical practice guideline. JCEM. 2010; 96(7):1911-30. :49 CBC W/AUTO DIFF WBC Comments: PATIENT NOT FASTINGPERFORMED BY: [facility] Oeajvp5875 [facility] [id number] Information: [id number] (91725) Immature Grans (Abs) 0.0 {x10E3/uL} (Normal) Range: [...] 3.77-5.28 WBC 6.1 {x10E3/uL} (Normal) Range: 3.4-10.8 44-Brq-318036:28 URINE GENESIS CULTURE-NITA COL Comments: PATIENT NOT FASTINGPERFORMED BY: [facility] Behsjs0721 [facility] [id number] Information: SRC:URC [id number] COUNT (54534) Antimicrobial MIHEAD (Normal) Comments: S = Susceptible; [...] Imipenem Meropenem Urine Final report (Abnormal) Culture,Comprehensive 65-Dml-847841:24 Urinalysis, Office (08285) UA - LEUKOCYTE ESTERASE Trace (Normal) UA - NITRITE Negative (Normal) URINE UROBILINGN NITA TIMED Normal mg/dL (Normal) UA - PROTEIN 30 mg/dL (Normal) UA - PH 6 (Abnormal) UA - BLOOD Negative (Normal) UA - SPECIFIC GRAVITY 1.030 (Abnormal) UA - KETONES Moderate mg/dL (Normal) UA - BILIRUBIN Small (Normal) UA - GLUCOSE Negative (Normal) :54 Bedside Glucose Comments: Test performed at:[facility] Lauuvzmshs39[address] [place], [place] [address] BEDSIDE GLU 129 mg/dL (Abnormal) Range: 70-110 Comments: MANAGEMENT OF PATIENT CARE PER NURSING PROTOCOL :47 Urinalysis, Office (81542) UA - LEUKOCYTE ESTERASE Trace (Normal) UA - NITRITE Negative (Normal) URINE UROBILINGN NITA TIMED 2 mg/dL (Normal) UA - PROTEIN 300 mg/dL (Normal) UA - PH 6.0 (Normal) UA - BLOOD Hemolyzed Large (Normal) UA - SPECIFIC GRAVITY 1.030 (Abnormal) UA - KETONES 15 mg/dL (Abnormal) UA - BILIRUBIN Moderate (Normal) UA - GLUCOSE Negative (Normal) 10-Bji-661101:57 Basic Metabolic Profile (BMP) Comments: Test performed at:[facility] [address] [place] [address] GAP 11 (Normal) Range: 5-15 CO2 27.0 [...] 126 mg/dLsuggests DIABETES MELLITUS per A.D.A. criteria. 29-Kuc-018280:57 Digoxin Level Comments: Test performed at:[facility] Gqnugtvowt8387 [place] [address] DIG 1.17 ng/mL (Normal) Range: 0.80-2.00 99-Dxl-894210:57 Hemoglobin A1c Comments: Test performed at:[facility] [address] [place] [address] HGB A1C 7.0 % (Abnormal) Range: 4.2-6.3 09-Obg-513189:57 Thyroid Stim Hormone (TSH) Comments: Test performed at:[facility] [address] [place] [address] TSH 0.89 {uIU/mL} (Normal) Range: 0.358-3.74 8-Vpn-820419:17 Urine Culture,Comprehensive Comments: PATIENT NOT FASTINGPERFORMED BY: [facility] Rjxcqi6765 [facility] [id number] Information: SRC:[facility] [id number] Result 1 BETAGB (Abnormal) Comments: Beta hemolytic [...] 02/28/15How was Urine Obtained? CLEAN CATCHTest performed at:[facility] Hxgfuhuobu4281 [place], [place] [address] AMORPHOUS 1+ URATE (Normal) MUCUS, URINE 1+ [...] :55 CBC W/Diff, Automated Comments: Test performed at:[facility] Otsmnnwrvv0055 [place], [place] [address] Absolute Lymph 1.29 {X10_3/ul} (Normal) Range: 0.83-4.51 [...] :55 Comprehensive Metabolic Profil Comments: Test performed at:[facility] Wryqbkjtzh4[address] [place], [place] [address] GAP 10 (Normal) Range: 5-15 CO2 26.0 [...] A.D.A. criteria. :55 Lipase Comments: Test performed at:[facility] B[address]rcbmkm[address] [place] [address] LIPASE 142 U/L (Normal) Range: 70-290 0-Vvj-882036:40 HgA1C , Office (49449) HgA1C , Office 7.4 % (Abnormal) Range: 4.6 - 7.1 :03 CBC W/Diff, Automated Comments: Test performed at:[facility] [address]nzsizm[address] [place] [address] Absolute Lymph 1.31 {X10_3/ul} (Normal) Range: 0.83-4.51 [...] 4.2-5.4 WBC 5.1 K/mm3 (Normal) Range: 4.4-11.0 99-Mfi-242210:03 Comprehensive Metabolic Profil Comments: Test performed at:[facility] [address]qdsnkamca35[address] [place] [address] GAP 11 (Normal) Range: 5-15 [...] 126 mg/dLsuggests DIABETES MELLITUS per A.D.A. criteria. 90-Hto-614443:00 Culture, Urine Comments: Test performed at:[facility] R[address]azyawaaz[address] [place] [address] CUUR See Note (Normal) Comments: Urine CultureORGANISM 1: Streptococcus agalactiae (B)Showell Count 1000-10,000 Streptococcus agalactiae (B): REACTION Ampicillin $ <=0.25 S Benzylpenicillin NF <=0.06 S Ceftriaxone (other dx) $ <=0.12 S Inducable Clindamycin Resistan - Linezolid $$$$ <=2 S Vancomycin $ 0.5 S(NF) indicates non-formulary drug at [facility]. Approval by Infectious Disease Specialist required before non-formulary drugs may be ordered and/or dispensed. * CLSI guidelines does not recommend testing of cephalosporins. This interpretation is deduced from Beta-lactam/penicillin results.; ADDENDA: handled by edvin :32 CBC W/Diff, Auto - EPLAB Only Comments: At [facility] Outpatient [facility], [facility] Cancer Care patientsreceive CBC w/auto Differential ONLY. Physician will placean order for a manual differential or Pathologist review athis discretion. [facility]. [address] [place] [address] [place] [address] MOVIE EDITOR: MATEO CASTANEDA DO PH:[phone] performed at:[facility] Cafcnmzyxs[address] [place], [place] [address] ; [facility] Absolute Neut 2.7 {X10_3/uL} (Normal) Range: [...] Specimen #1, #2 or #3? 1Test performed at:[facility] Plydcetoqv[address] [place] [address] Range: 87-241 Comments: ADDENDA: elliott :34 TSH (54602) Comments: PATIENT WAS FASTINGPERFORMED BY: [facility] HospitalSynercon TechnologiesPlains Regional Medical CenterXorwxu7415 [facility] [id number] TSH 1.240 {uIU/mL} (Normal) Range: 0.450-4.500 :34 LIPID PANEL (01798) Comments: PATIENT WAS FASTINGPERFORMED BY: [facility] [place] [address] [id number] LDL/HDL Ratio 2.6 {ratio_units} (Normal) Range: 0.0-3.2 [...] CREATININE RATIO Comments: PATIENT WAS FASTINGPERFORMED BY: [employer] BenefitsPlains Regional Medical CenterBqfemp0113 [facility] [id number]; non- emergent till apt tomorrow (26072) AND (82520) Microalb/Creat Ratio 14.8 {mg/g_creat} (Normal) Range: 0.0-30.0 Microalbumin, Urine 44.5 ug/mL (Abnormal) Range: 0.0-17.0 Creatinine, Urine 301.0 mg/dL (Abnormal) Range: 15.0-278.0 :34 METABOLIC PANEL, Comments: PATIENT WAS FASTINGPERFORMED BY: [facility]6370 [facility] [id number] Information: [id number] COMPREHENSIVE (33522) ALT (SGPT) 21 [iU]/L (Normal) Range: 0-32 [...] Glucose, Serum 161 mg/dL (Abnormal) Range: 65-99 2-Jos-088953:10 HgA1C , Office (07022) HgA1C , Office 7.2 % (Abnormal) Range: 4.6 - 7.1 :47 CBC W/Diff, Automated Comments: Test performed at:[facility] [address]yrljbvuoy[address] [place], [place] [address] ; Handled by Vicki Absolute Lymph 1.43 [...] 4.2-5.4 WBC 5.4 K/mm3 (Normal) Range: 4.4-11.0 70-Cxj-115678:47 Comprehensive Metabolic Profil Comments: Test performed at:[facility] Ylvwdzravs[address] [place], [place] 28[address] GAP 6 (Normal) Range: 5-15 CO2 30.0 [...] Microscopic Examination Comments: PATIENT NOT FASTINGPERFORMED BY: [facility]3]Extmsc8125 [facility] [id number] Bacteria Few (Normal) Mucus Threads Present (Normal) Epithelial Cells (non renal) 0-10 {/hpf} (Normal) Range: 0 - 10 RBC 0-2 {/hpf} (Normal) Range: 0 - 2 WBC >30 {/hpf} (Abnormal) Range: 0 - 5 :01 Urinalysis, Routine Comments: PATIENT NOT FASTINGPERFORMED BY: [employer] Gdzeyy8805 [facility] [id number] Microscopic Examination See below: (Normal) Comments: Microscopic was indicated and was performed. Nitrite, Urine Negative (Normal) Urobilinogen,Semi-Qn 0.2 mg/dL (Normal) Range: 0.0-1.9 Bilirubin Negative (Normal) Occult Blood Negative (Normal) Ketones Trace (Abnormal) Glucose Negative (Normal) Protein 1+ (Abnormal) WBC Esterase 3+ (Abnormal) Appearance Turbid (Abnormal) Urine-Color Yellow (Normal) pH 6.0 (Normal) Range: 5.0-7.5 Specific [place] 1.030 (Normal) Range: 1.005-1.030 :18 CBCD ALC [...] mg/dLsuggests DIABETES MELLITUS per A.D.A. criteria. :01 XEPNW-ALQJIRQVPNK-XFERH (19873) Comments: PATIENT NOT FASTINGPERFORMED BY: [place] [id number] [facility] [id number] AFP, Serum, Tumor Marker 7.1 ng/mL (Normal) Range: 0.0-8.3 Comments: Khanh ECLIA methodology :01 PTT (Activated Partial Comments: PATIENT NOT FASTINGPERFORMED BY: [address] [id number] Thromboplastin Time) (91380) aPTT 25 {sec} (Normal) Range: 24-33 Comments: This test has not been validated for monitoring unfractionated heparintherapy. aPTT-based therapeutic ranges for unfractionated heparintherapy have not been established. For general guidelines onHeparin monitoring, refer to the [facility] Directory of Services. :01 PT (Prothrobim Time) (48032) Comments: PATIENT NOT FASTINGPERFORMED BY: [place] [id number] [facility] [id number] Prothrombin Time 10.4 {sec} (Normal) Range: 9.1-12.0 INR 1.0 (Normal) Range: 0.8-1.2 Comments: Reference interval is for non-anticoagulated patients. . Suggested INR therapeutic range for Vitamin K anta gonist therapy: Standard Dose (moderate intensity therapeutic range): 2.0 - 3.0 Higher intensity therapeutic range 2.5 - 3.5 :01 TSH (77832) Comments: PATIENT NOT FASTINGPERFORMED BY: [facility]6370 [facility] [id number] TSH 1.450 {uIU/mL} (Normal) Range: 0.450-4.500 :01 CBC W/AUTO DIFF WBC Comments: PATIENT NOT FASTINGPERFORMED BY: [facility]6370 [facility] [id number] Information: [id number] ([id number]) Immature Grans (Abs) 0.0 {x10E3/uL} (Normal) Range: [...] CREATININE RATIO Comments: PATIENT NOT FASTINGPERFORMED BY: [facility]]Hcjpno0002 [facility] [id number] ([id number]) AND ([id number]) Microalb/Creat Ratio 26.4 {mg/g_creat} (Normal) Range: 0.0-30.0 Microalbumin, Urine 96.0 ug/mL (Abnormal) Range: 0.0-17.0 Creatinine, Urine 364.2 mg/dL (Abnormal) Range: 15.0-278.0 :01 METABOLIC PANEL, COMPREHENSIVE Comments: PATIENT NOT FASTINGPERFORMED BY: [employer] Ekbmzr1525 [facility] [id number] (93647) ALT (SGPT) 19 [iU]/L (Normal) Range: 0-32 [...] mg/dL (Abnormal) Range: 65-99 :01 LIPID PANEL (52982) Comments: PATIENT NOT FASTINGPERFORMED BY: [facility]3]Cwztuv3140 [facility] [id number] LDL/HDL Ratio 2.1 {ratio_units} (Normal) Range: 0.0-3.2 [...] (Normal) Range: 100-199 :19 HgA1C , Office (16499) HgA1C , Office 6.3 % (Normal) Range: 4.6 - 7.1 :11 LDH 205 U/L (Normal) Comments: Serial Specimen #1, #2 or #3? 1 Range: 87-241 55-Fuo-722570:10 ECBCD ANC 3.4 {X10_3/uL} (Normal) Range: 2.0-7.7 [...] 7-18 GLU 102 mg/dL (Normal) Range: 70-110 19-Xnd-30362:59 Anaerobic & Aerobic Comments: PATIENT NOT FASTINGPERFORMED BY: REINALDO [facility] Izequc8079 [facility] [id number] Information: SRC:EMIL [id number] RIGHT EYE Culture (80619) Antimicrobial MIHEAD (Normal) Comments: S = Susceptible; [...] hours. Anaerobic Culture Final report (Normal) :57 VGOPW-MLKTRHEGNZI-QFKEE (29911) Comments: PATIENT WAS FASTINGPERFORMED BY: [facility]6370 [facility] [id number] AFP, Serum, Tumor Marker 9.2 ng/mL (Abnormal) Range: 0.0-8.3 Comments: Khanh ECLIA methodology :57 PTT (Activated Partial Comments: PATIENT WAS FASTINGPERFORMED BY: [facility]6370 [facility] [id number] Thromboplastin Time) (03784) aPTT 26 {sec} (Normal) Range: 24-33 Comments: This test has not been validated for monitoring unfractionated heparintherapy. aPTT-based therapeutic ranges for unfractionated heparintherapy have not been established. For general guidelines onHeparin monitoring, refer to the [facility] Directory of Services. :57 PT (Prothrobim Time) (94130) Comments: PATIENT WAS FASTINGPERFORMED BY: [facility]3]Xrqpjy8369 [facility] [id number] Prothrombin Time 10.5 {sec} (Normal) Range: 9.1-12.0 INR 1.0 (Normal) Range: 0.8-1.2 Comments: Reference interval is for non-anticoagulated patients. . Suggested INR therapeutic range for Vitamin K anta gonist therapy: Standard Dose (moderate intensity therapeutic range): 2.0 - 3.0 Higher intensity therapeutic range 2.5 - 3.5 :57 TSH (03345) Comments: PATIENT WAS FASTINGPERFORMED BY: [facility]3]Hdgpcc2268 [facility] [id number] TSH 3.200 {uIU/mL} (Normal) Range: 0.450-4.500 :57 CBC WITH MANUAL DIFF Comments: PATIENT WAS FASTINGPERFORMED BY: [facility]6370 [facility] [id number] Information: [id number] (27059) Immature Grans (Abs) 0.0 {x10E3/uL} (Normal) Range: [...] PANEL, COMPREHENSIVE Comments: PATIENT WAS FASTINGPERFORMED BY: [facility]3]Lpakfb9920 [facility] [id number] (22434) ALT (SGPT) 15 [iU]/L (Normal) Range: 0-32 [...] (Abnormal) Range: 65-99 :29 HgA1C , Office (13238) HgA1C , Office 5.4 % (Normal) Range: [...] CHOL 150 mg/dL (Normal) Comments: <200 mg/dL Uneupgshh090-699 mg/dL Borderline>240 mg/dL High Risk :50 HgA1C , Office (26191) HgA1C , Office 5.8 % (Normal) Range: [...] [facility]. Approximately 10% of breast cancers are not detected by mammography. Anormal mammogram should not delay biopsy of a clinically suspiciousabnormality. Signed:Mele Santiago [facility] 2012 at 9:19:01 AM [phone] Signed GP/GP If you are the referring physician and would like to consult with theradiologist who provided this interpretation, please herbie Bonilla M.D. at [phone]. If this radiologist is unavailable, youwill be directed to another radiologist to assist. If you are a patient with a question regarding this report, pleaseco ntactyour referring physician directly. Professional Interpretation Provided By: [employer] Guarani, Phone , These documents contain legally protected [...] on 06/15/13920 Sign by: Prashant Delgadillo MD 55-Bzi-11750:27 THYROID Radiology Report See Note Comments: STUDY: [...] Delgadillo M.D.June 15, 2013 at 2:56:26 PM [phone] Signed GP/GP If you are the referring physician and would like to consult with theradiologist who provided this interpretation, please contact Sarmad Bonilla at [phone]. If this radiologist is unavailable, youwill be directed to another radiologist to assist. If you are a patient with a question regarding this report, pleasecontactyour referring physician directly. Profes sional Interpretation Provided By: [employer] Guar[employer], Phone , These documents contain legally protected [...] 06/15/13 1733 Sign by: Prashant Delgadillo MD 5-Jrr-013166:18 URINE GENESIS CULTURE-NITA COL Comments: PATIENT NOT FASTINGPERFORMED BY: [facility] Ztbpxx3773 [facility] [id number] Information: SRC: [id number] COUNT (29494) Antimicrobial MIHEAD (Normal) Comments: S = Susceptible; [...] primarily for treating urinary tract infections. (CLSI, S168-G93,2009) Urine Culture,Comprehensive Final report (Normal) 04-Jun-20138:48 Urinalysis, Office (98265) UA - LEUKOCYTE ESTERASE Large (Normal) UA - NITRITE Positive (Normal) URINE UROBILINGN NITA TIMED 2 mg/dL (Normal) UA - PROTEIN Negative mg/dL (Normal) UA - BLOOD Negative (Normal) UA - KETONES Moderate mg/dL (Normal) UA - BILIRUBIN Moderate (Normal) UA - GLUCOSE Small mg/dL (Normal) 79-Xcj-72232:06 MICROALBUMIN: CREATININE RATIO Comments: PATIENT WAS FASTINGPERFORMED BY: [facility] EnergyMon[facility]3]Kukzhm5513 [facility] [id number] (82083) AND (37731) Microalb/Creat Ratio 27.4 {mg/g_creat} (Normal) Range: 0.0-30.0 Microalbumin, Urine 85.2 ug/mL (Abnormal) Range: 0.0-17.0 Creatinine, Urine 311.1 mg/dL (Abnormal) Range: 15.0-278.0 :06 METABOLIC PANEL, Comments: PATIENT WAS FASTINGPERFORMED BY: [facility] EnergyPlains Regional Medical CenterLrqomj7789 [facility] [id number] Information: ADD L57133 AND DRAW FEE 99 1183 COMPREHENSIVE (25993) ALT (SGPT) 29 [iU]/L (Normal) Range: 0-32 [...] 76 mg/dL (Normal) Range: 65-99 :06 TSH (55011) Comments: PATIENT WAS FASTINGPERFORMED BY: [place] [id number] [facility] [id number] TSH 3.040 {uIU/mL} (Normal) Range: 0.450-4.500 :06 LIPID PANEL (43535) Comments: PATIENT WAS FASTINGPERFORMED BY: [address] [id number] LDL/HDL Ratio 2.4 {ratio_units} (Normal) Range: 0.0-3.2 HDL Cholesterol 55 mg/dL (Normal) Comments: According to ATP-III Guidelines, HDL-C >59 mg/dL is considered anegative risk factor for CHD. LDL Cholesterol Calc 134 mg/dL (Abnormal) Range: 0-99 VLDL Cholesterol Ramandeep 18 mg/dL (Normal) Range: 5-40 Cholesterol, Total 207 mg/dL (Abnormal) Range: 100-199 Triglycerides 89 mg/dL (Normal) Range: 0-149 :06 HTISR-VEFVLNQGNIB-TXGTA (59224) Comments: PATIENT WAS FASTINGPERFORMED BY: [facility]6370 [facility] [id number] AFP, Serum, Tumor Marker 5.4 ng/mL (Normal) Range: 0.0-8.3 Comments: Khanh ECLIA methodology :06 PTT (Activated Partial Comments: PATIENT WAS FASTINGPERFORMED BY: [address] [id number] Thromboplastin Time) (58973) aPTT 27 {sec} (Normal) Range: 24-33 Comments: This test has not been validated for monitoring unfractionated heparintherapy. aPTT-based therapeutic ranges for unfractionated heparintherapy have not been established. For general guidelines onHeparin monitoring, refer to the [facility] Directory of Services. :06 PT (Prothrobim Time) (42972) Comments: PATIENT WAS FASTINGPERFORMED BY: [facility]6370 [facility] [id number] INR 1.1 (Normal) Range: 0.8-1.2 Comments: Reference interval is for non-anticoagulated patients. . Suggested INR therapeutic range for Vitamin K anta gonist therapy: Standard Dose (moderate intensity therapeutic range): 2.0 - 3.0 Higher intensity therapeutic range 2.5 - 3.5 Prothrombin Time 11.0 {sec} (Normal) Range: 9.1-12.0 :51 HgA1C , Office (07416) HgA1C , Office 5.0 % (Normal) Range: [...] 4.2-5.4 WBC 3.6 {k/mm3} (Abnormal) Range: 4.4-11.0 08-Wsu-39214:48 CMP GAP 9 (Normal) Range: 5-15 CO2 [...] 0.6-1.0 GLU 91 mg/dL (Normal) Range: 70-110 61-Sgc-82119:03 Rapid Flu (77837 x 2) Influenza A Ag positive b (Normal) 86-Iee-43646:27 METABOLIC PANEL, COMPREHENSIVE Comments: PATIENT WAS FASTINGPERFORMED BY: [facility]3]Lzfcxk3039 [facility] [id number] (20655) ALT (SGPT) 25 [iU]/L (Normal) Range: 0-32 [...] mg/dL (Normal) Range: 65-99 :27 LIPID PANEL (26415) Comments: PATIENT WAS FASTINGPERFORMED BY: [employer] [facility] [id number] LDL/HDL Ratio 0.9 {ratio_units} (Normal) Range: 0.0-3.2 LDL Cholesterol Calc 29 mg/dL (Normal) Range: 0-99 VLDL Cholesterol Ramandeep 17 mg/dL (Normal) Range: 5-40 HDL Cholesterol 32 mg/dL (Abnormal) Comments: According to ATP-III Guidelines, HDL-C >59 mg/dL is considered anegative risk factor for CHD. Cholesterol, Total 78 mg/dL (Abnormal) Range: 100-199 Triglycerides 84 mg/dL (Normal) Range: 0-149 :27 TSH (72158) Comments: PATIENT WAS FASTINGPERFORMED BY: [employer] [facility] [id number] TSH 3.990 {uIU/mL} (Normal) Range: 0.450-4.500 :27 CBC WITH MANUAL DIFF Comments: PATIENT WAS FASTINGPERFORMED BY: [employer] [facility] [id number] Information: [id number] (85530) Immature Grans (Abs) 0.0 {x10E3/uL} Range: 0.0-0.1 [...] Comments: Khanh ECLIA methodologyPerformed at: - [facility] [address] [id number] Director: Manuelito Mendez PhD, Phone: [phone] 42-Mlg-45951:39 CBCMD ANC 2.4 3/uL (Normal) Range: 2.0-7.7 [...] CHOL 130 mg/dL (Normal) Comments: <200 mg/dL Ijosavawq927-016 mg/dL Borderline>240 mg/dL High Risk :39 MIACRE tMICROCREAT 16.5 {mg/g_CRE} (Normal) MIALB 23.3 mg/L (Normal) CREU 141.0 mg/dL (Normal) :39 PT INR 1.1 (Normal) PTP 13.6 s (Normal) Range: 11.9-14.4 :39 PTT PTTP 29.5 s (Normal) Range: 24.1-36.2 :17 Rapid Flu (70406 x 2) Influenza A Ag neg (Normal) :29 HgA1C , Office (96336) HgA1C , Office 5.9 % (Normal) Range: 4.6 - 7.1 :53 FT3 2.9 pg/mL (Normal) Range: 2.18-3.98 :53 T4F 1.26 ng/dL (Normal) Range: 0.76-1.46 :53 TPO 8 {IU/mL} (Normal) Range: 0-34 Comments: Performed at: - [facility] [id number] Director: Codi Robles MD, Phone: [phone] 48-Xeb-242017:53 TSH 1.23 {uIU/mL} (Normal) Range: 0.358-3.74 :04 HgA1C , Office (17536) HgA1C , Office 5.8 % (Normal) Range: 4.6 - 7.1 :26 CBCMD Comments: ORDERED TSH LIPID CMP CBCMD MIACREDR.JACINDA ORDERED VITD CMP CBCD RBCM NORM C+C [...] :26 LIPID Comments: ORDERED TSH LIPID CMP [facility] NETWORKJACINDA ORDERED VITD CMP CBCD VLDL 21 mg/dL [...] {uIU/mL} (Normal) Comments: ORDERED TSH LIPID CMP [facility]INDA ORDERED VITD CMP CBCD Range: 0.358-3.74 :26 VITD 44.8 ng/mL (Normal) Comments: DR.FAST ORDERED TSH LIPID CMP CBCMD MIACREDR.JACINDA ORDERED VITD CMP CBCD Range: 30.0-100.0 Comments: Vitamin D deficiency has been defined by the [place] ofMedicine and an Endocrine Society practice guideline as alevel of serum 25-OH vitamin D less than 20 ng/mL (1,2).The Endocrine Society went on to further define vitamin Dinsufficiency as a level between 21 and 29 ng/mL (2).1. IOM ([place] of Medicine). 2010. Dietary reference intakes for calcium and D. [place]: The National Academies Press.2. Sami MF, Sophie MOORE, Xiomara LARES, et al. Evaluation, treatment, and prevention of vitamin D deficiency: an Endocrine Society clinical practice guideline. JCEM. 2010; 96(7): 1911-30.Performed at: [address] [id number] Director: Codi Robles MD, Phone: [phone] 27-Jan-20128:02 BILAT SCRN DIGITAL & CAD Radiology [...] Signed GP/GP Professional Interpretat ion Provided By: [facility], , To consult with a radiologist regarding this report, please call our 30S5qxehsaf line @ Dicta dani on 01/27/12 0813 by Faustina KING,ArnaldorieleTranscribed on 01/27/12 0950 by ITS IMPORTSign by Faustina KING,Prashant on 01/27/12 0951 Sign by: Prashant Delgadillo MD 70-Yfa-555952:24 HgA1C , Office (39565) HgA1C , Office 5.7 % (Normal) Range: 4.6 - 7.1 06-Vrd-568476:24 Blood Glucose , Office (11957) Blood Glucose , Office 89 (Normal) 02-Mzs-300169:31 Urinalysis, Office (93851) UA - LEUKOCYTE ESTERASE Small (Normal) UA - NITRITE Positive (Normal) URINE UROBILINGN NITA TIMED Normal mg/dL (Normal) UA - PROTEIN 300 mg/dL (Normal) UA - PH 6.0 (Normal) UA - SPECIFIC GRAVITY 1.025 (Normal) UA - KETONES Small mg/dL (Normal) UA - BILIRUBIN Moderate (Normal) UA - GLUCOSE Negative (Normal) :15 HgA1C , Office (36370) HgA1C , Office 6.8 % (Normal) Range: 4.6 - 7.1 :15 Blood Glucose , Office (90706) Blood Glucose , Office 162 (Normal) 07-Obh-376625:22 THYROID Radiology Report See Note (Normal) Comments: [...] 09/08/11 1330 Sign by: Prashant Delgadillo MD 60-Ais-94073:59 COMP METABOLIC GAP 9 (Normal) Range: 5-15 [...] COL Comments: PATIENT NOT FASTINGPERFORMED BY: [facility] Bptxzf4678 [facility] [id number] Information: SRC:[facility] [id number] COUNT (62965) Antimicrobial MIHEAD (Normal) Comments: S = Susceptible; [...] pneumoniae (Normal) Urine Final report Culture,Comprehensive (Normal) 93-Xny-12079:32 Urinalysis, Office (57996) UA - LEUKOCYTE ESTERASE Moderate (Normal) URINE UROBILINGN NITA TIMED Normal mg/dL (Normal) UA - PROTEIN 100 mg/dL (Normal) UA - PH 6.0 (Normal) UA - BLOOD Hemolyzed Large (Normal) UA - SPECIFIC GRAVITY 1.025 (Normal) UA - KETONES Negative mg/dL (Normal) UA - BILIRUBIN Negative (Normal) UA - GLUCOSE Negative (Normal) :28 Blood Glucose , Office (41533) Blood Glucose , Office 223 (Normal) :10 Urinalysis, Office (67980) UA - BILIRUBIN Small (Normal) UA - BLOOD Hemolyzed Large (Normal) UA - GLUCOSE Small (Normal) Comments: 100 UA - KETONES Negative mg/dL (Normal) UA - LEUKOCYTE ESTERASE Trace (Normal) UA - NITRITE Positive (Normal) UA - PH 5.0 (Normal) UA - PROTEIN 300 mg/dL (Normal) UA - SPECIFIC GRAVITY 1.020 (Normal) URINE UROBILINGN NITA TIMED 2 mg/dL (Normal) 1-Nqq-296497:29 URINE GENESIS CULTURE-NITA COL Comments: PATIENT NOT FASTINGPERFORMED BY: [facility] Ckwodj4731 [facility] [id number] Information: SRC:UR [id number] COUNT (15892) Antimicrobial MIHEAD (Normal) Comments: S = Susceptible; [...] mL (Normal) Urine Final report (Normal) Culture,Comprehensive 7-Cel-627697:31 Urinalysis, Office (73163) UA - BILIRUBIN Large (Normal) UA - [...] (Abnormal) Range: 0.358-3.74 :28 HgA1C , Office (87662) HgA1C , Office 8.3 % (Abnormal) Range: 4.6 - 7.1 :28 Blood Glucose , Office (17067) Blood Glucose , Office 176 (Normal) :24 [...] 200-240 mg/dL Borderline >240 mg/dL High Risk 66-Kqd-498856:54 BRAIN/HEAD W/WO CONTRAST Radiology See Note Comments: [...] are unchanged. Dictated on 10/14/10 0856 by Stanislav Delgadillo MDranscribed on 10/14/10 0856 by ITS IMPORTSign by Prashant Delgadillo MD on 02/09/11 1702 Sign by: Prashant Delgadillo MD :44 HgA1C , Office (58402) HgA1C , Office 7.4 % (Abnormal) Range: 4.6 - 7.1 :44 Blood Glucose , Office (96288) Blood Glucose , Office 206 (Normal) :37 [...] Report See Note (Normal) Comments: Exam Number: [id number] AMMOGRAPHY - BILATERAL SCREENING INDICATION:Routine annual screening [...] attaching a ResultCode to this exam. ADDENDUM: [id number] HPBI/MDS Reported By: PRASHANT DELGADILLO :14 HgA1C , Office (52150) HgA1C , Office 7.0 % (Normal) Range: 4.6 - 7.1 :14 Blood Glucose , Office (30529) Blood Glucose , Office 164 (Normal) :30 LASHA DIR SEMI-QL LASHA DIRECT 24 AU/mL (Normal) :30 ANTI-dsDNA AB 10 {IU/mL} (Normal) :30 TSH 6.39 {uIU/mL} (Abnormal) Range: 0.358-3.74 70-Gka-717347:35 C-REACTIVE PROTEIN (76436) Comments: PATIENT NOT FASTINGPERFORMED BY: [facility]3]Zksqzl2986 [facility] [id number] C-Reactive Protein, Quant 6.5 mg/L (Abnormal) Range: 0.0-4.9 37-Tzw-474484:35 SED RATE ERYTHROCYTE (98891) Comments: PATIENT NOT FASTINGPERFORMED BY: [facility]6370 [facility] [id number] Sedimentation Rate-Westergren 14 mm/h (Normal) Range: 0-20 10-Ckm-475245:35 RHEUMATOID FACTOR-QUANT (67601) Comments: PATIENT NOT FASTINGPERFORMED BY: [facility]6370 [facility] [id number] RA Latex Turbid. 7.6 {IU/mL} (Normal) Range: 0.0-13.9 86-Zkj-616190:35 LASHA (ANTINUCLEAR ANTIBODY) Comments: PATIENT NOT FASTINGPERFORMED BY: [facility]6370 [facility] [id number] (98515) LASHA Direct Positive (Abnormal) 68-Ynj-184868:35 T3, FREE (TRIDOTHYRONINE) (69288) Comments: PATIENT NOT FASTINGPERFORMED BY: [facility]6370 [facility] [id number] Triiodothyronine,Free,Serum 2.8 pg/mL (Normal) Range: 2.0-4.4 56-Ujr-585238:35 T4, FREE (THYROXINE) (71985) Comments: PATIENT NOT FASTINGPERFORMED BY: [facility]6370 [facility] [id number] T4,Free(Direct) 0.76 ng/dL (Abnormal) Range: 0.82-1.77 70-Sxy-352248:35 Anti-TPO Antibody (72703) Comments: PATIENT NOT FASTINGPERFORMED BY: [facility]6370 [facility] [id number] Thyroid Peroxidase (TPO) Ab <6 {IU/mL} (Normal) Range: 0-34 89-Tsd-293375:35 TSH (78969) Comments: PATIENT NOT FASTINGPERFORMED BY: [facility]6370 [facility] [id number] TSH 5.630 {uIU/mL} (Abnormal) Range: 0.450-4.500 Comments: Please note reference interval change 15-Hxw-479911:35 METABOLIC PANEL, Comments: PATIENT NOT FASTINGPERFORMED BY: [facility] Kcauok4260 [facility] [id number] Information: [id number] COMPREHENSIVE (90180) ALT (SGPT) 55 [iU]/L (Abnormal) Range: 0-40 [...] Glucose, Serum 151 mg/dL (Abnormal) Range: 65-99 61-Tyg-181686:02 GENESIS CULTURE-OTHER (09703) Comments: PATIENT NOT FASTINGPERFORMED BY: REINALDO [facility] Etfzjt9201 [facility] [id number] Information: SRC:THRT [id number] Result 1 Yeast isolated. (Normal) Comments: Moderate growthRequest for further identification must be madewithin 1 week. Upper Respiratory Culture Final report (Normal) 97-Dvv-11919:37 Rapid Strep Test, Office (16486) Rapid Strep Test, Office Negative (Normal) 34-Lek-858314:11 THYROID (HP) Radiology Report See Note (Normal) Comments: Exam Number: [id number] CLINICAL:This is a 45-year-old female patient with [...] CHOL 147 mg/dL (Normal) Comments: <200 mg/dL Azxbkuxmq081-326 mg/dL Borderline>240 mg/dL High Risk HDL 32 [...] :41 TSH 4.85 {uIU/mL} (Abnormal) Range: 0.358-3.74 51-Psx-691359:50 URINE GENESIS CULTURE-NITA COL Comments: PATIENT NOT FASTINGPERFORMED BY: [facility] Zokdgr4584 [facility] [id number] Information: SRC:UR ADD [id number] COUNT (15993) Result 1 Klebsiella pneumoniae Comments: 1,000 Colonies/mL [...] STrimethoprim/Sulfa S Urine Final report (Normal) Culture,Comprehensive 08-Mil-25854:55 Urinalysis, Office (03320) UA - LEUKOCYTE ESTERASE Small (Normal) UA - NITRITE Negative (Normal) URINE UROBILINGN NITA TIMED Normal mg/dL (Normal) UA - PROTEIN 30 mg/dL (Normal) UA - PH 6.0 (Normal) UA - BLOOD Negative (Normal) UA - SPECIFIC GRAVITY 1.020 (Normal) UA - KETONES Negative mg/dL (Normal) UA - BILIRUBIN Negative (Normal) UA - GLUCOSE Negative (Normal) 7-Wsj-380612:37 PET/CT,TUMOR,BASE-THIGH,SUBS Radiology Report See Note (Normal) Comments: Exam Number: [id number] EXAM: Body PET study Head to Mid [...] 44:398P, 2003). w Reported By: ADELA MOLINA 7-Hfi-894820:00 PRANEETH+ELPU24 3467 ALBUMIN,U 37.7 % (Normal) HRGVP-6-IBVT,U 3.2 % (Normal) YEIBL-7-YYLP,U 7.6 % (Normal) BETA GLOB,U 23.1 % (Normal) GAMMA GLOB,U 28.5 % (Normal) PRANEETH RESULT,U Comment (Normal) Comments: No monoclonality detected. M-SPIKE,UR% SeeNote % (Normal) Comments: Result: Not Observed PROTEIN, U24 62.1 {mg/24_hr} Range: 30.0-150.0 (Normal) PROTEIN,UR 2.3 mg/dL (Normal) Range: 0.0-15.0 3-Iuq-088475:15 C-REACTIVE PROT < 2.90 mg/L (Normal) Range: 0.0-3.0 Comments: C-Reactive Protein (CRP) provides useful information for thediagnosis, therapy and monitoring of inflammatory processesand associated diseases. For the evaluation of Relative Riskfor Cardiovascular Dise ase, a High Sensitivity CRP (HSCRP)should be ordered. 6-Luj-514137:15 CBCD,SMEAR DIFF PLT EST SeeNote (Normal) Comments: [...] 4.2-5.4 WBC 4.3 K/mm3 (Abnormal) Range: 4.4-11.0 9-Bxm-489965:15 COMP METABOLIC CL 104 mmol/L (Normal) Range: [...] <126 mg/dLsuggests IMPAIRED HOMEOSTASIS per A.D.A. criteria. 6-Fhm-015049:15 ESR SED RATE 11 mm/h (Normal) Range: 0-20 3-Mzl-514289:15 LDH 197 U/L (Abnormal) Range: 100-190 0-Lhh-602507:15 LIPID HDL 30 mg/dL (Abnormal) Comments: Reference [...] CHOL 154 mg/dL (Normal) Comments: <200 mg/dL Eupvwqtct859-873 mg/dL Borderline>240 mg/dL High Risk 2-Vrk-126931:15 PROT.[id number] NOTE Comment (Normal) Comments: Protein electrophoresis scan will follow via computer,mail, or jewel stringer delivery.Performed at: - [facility] [id number] Director: Kamlesh Arana MD ALBUMIN,UR 54.2 % (Normal) BOYOG-9-VBML,U 1.2 % (Normal) XERIP-3-JENS,U 9.4 % (Normal) BETA GLOB,U 23.4 % (Normal) GAMMA GLOB,U 11.8 % (Normal) M-SPIKE,U SeeNote % (Normal) Comments: Result: Not Observed PROTEIN,UR 13.6 mg/dL (Normal) Range: 0.0-15.0 1-Kus-793454:15 SPE [id number] A/G RATIO 1.8 (Normal) Range: 0.7-2.0 GLOBULIN, [...] electrophoresis scan will follow via computer,mail, or jewel stringer delivery. M-SPIKE SeeNote g/dL (Normal) Comments: Result: Not Observed GAMMA GLOBULIN 0.4 g/dL (Abnormal) Range: 0.5-1.6 ALBUMIN 3.9 g/dL (Normal) Range: 3.2-5.6 ALPHA-1 GLOBUL 0.2 g/dL (Normal) Range: 0.1-0.4 ALPHA-2 GLOBUL 0.7 g/dL (Normal) Range: 0.4-1.2 BETA GLOBULIN 0.9 g/dL (Normal) Range: 0.6-1.3 PROTEIN,TOTAL 6.1 g/dL (Normal) Range: 6.0-8.5 84-Thh-966817:28 BRAIN/HEAD WITHOUT CONTRAST Radiology Report See Note (Normal) Comments: Exam Number: [id number] CT SCAN OF BRAIN HISTORYLytic lesion, lymphoma. Scans were obtained at 2.5-mm intervals through the posterior fossaand 5-mm intervals through the remainder of the brai n. [facility] entstudy is compared to the examination [...] for confirmation. Reported By: TRUE NAGEL M.D. 25-Rtu-561012:23 SPINE,CERVICAL WITHOUT CONTRAS Radiology Report See Note (Normal) Comments: Exam Number: [id number] CLINICAL:44 year old female with cervical radiculopathy. [...] tumor involvement. Reported By: SHARYN JASMINE M.D. 73-Bvl-853140:50 Blood Glucose , Office (01694) Blood Glucose , Office 105 (Normal) 64-Jfl-113660:50 HgA1C , Office (36162) HgA1C , Office 6.1 % (Normal) Range: 4.6 - 7.1 65-Qeq-682255:24 URINE GENESIS CULTURE-NITA COL Comments: PATIENT NOT FASTINGPERFORMED BY: REINALDO [facility] Mookdj0642 [facility] [facility] [id number] Information: SRC:INGRID [id number] COUNT (24584) Antimicrobial MIHEAD (Normal) Comments: S = Susceptible; [...] mL (Normal) Urine Final report (Normal) Culture,Comprehensive 56-Lpt-866592:41 Urinalysis, Office (00881) UA - LEUKOCYTE ESTERASE Large (Normal) UA - NITRITE Negative (Normal) URINE UROBILINGN NITA TIMED Normal mg/dL (Normal) UA - PROTEIN 100 mg/dL (Normal) UA - PH 5.0 (Normal) UA - BLOOD Hemolyzed Large (Normal) UA - SPECIFIC GRAVITY 1.025 (Normal) UA - KETONES Negative mg/dL (Normal) UA - BILIRUBIN Negative (Normal) UA - GLUCOSE Negative (Normal) 1-Iip-790658:19 BLOOD GAS, O2 SAT ONLY - INITL Radiology Report See Note (Normal) Comments: Exam Number: [id number] Procedure completed. Please see MEDICAL RECORDS reports in PCI - OP - OP NOTE LET - LETTER. Reported By: BOONE CH M.D. 6-Xsk-210587:19 BLOOD GAS, O2 SAT ONLY - SUBSQ Radiology Report See Note (Normal) Comments: Exam Number: [id number] Procedure completed. Please see MEDICAL RECORDS reports in PCI - OP - OP NOTE LET - LETTER. Reported By: BOONE CH M.D. 8-Uye-559722:19 BLOOD GAS, O2 SAT ONLY - SUBSQ Radiology Report See Note (Normal) Comments: Exam Number: [id number] Procedure completed. Please see MEDICAL RECORDS reports in PCI - OP - OP NOTE LET - LETTER. Reported By: BOONE CH M.D. 04-Aug-20096:45 RHC/LHC/CORS/LV Radiology Report See Note (Normal) Comments: Exam Number: [id number] Procedure completed. Please see MEDICAL RECORDS reports in PCI - OP - OP NOTE LET - LETTER. Reported By: BOONE HC M.D. :59 BMP BUN 15 mg/dL (Normal) [...] MIXED GRAM POSITIVE ORGANISMS :58 Urinalysis, Office (54078) UA - BILIRUBIN Negative (Normal) UA - BLOOD Negative (Normal) UA - GLUCOSE Negative (Normal) UA - KETONES Negative mg/dL (Normal) UA - LEUKOCYTE ESTERASE Small (Normal) Comments: aw UA - NITRITE Negative (Normal) UA - PH 6.0 (Normal) UA - PROTEIN Negative mg/dL (Normal) UA - SPECIFIC GRAVITY 1.010 (Normal) URINE UROBILINGN NITA TIMED Normal mg/dL (Normal) :53 HgA1C , Office (24148) HgA1C , Office 5.7 % (Normal) Range: 4.6 - 7.1 :53 Blood Glucose , Office (72379) Blood Glucose , Office 133 (Normal) :24 [...] (Normal) Range: 6.4-8.2 :53 HgA1C , Office (23064) HgA1C , Office 10.0 % (Abnormal) Range: 4.6 - 7.1 :53 Blood Glucose , Office (86058) Blood Glucose , Office 410 (Normal) :46 [...] 11.6-14.6 WBC 4.0 K/mm3 (Abnormal) Range: 4.4-11.0 9-Sqf-703119:46 COMP METABOLIC A/G 1.2 {RATIO} (Normal) Range: [...] 500 mg/dL VLDL 49 mg/dL (Abnormal) Range: 40 8-Nyr-683191:46 MICROALB:CRE UR MALB:CREAT 33.3 {mg/g_CRE} (Abnormal) MICROALBUMIN,UR 62.2 mg/L (Normal) UR CREAT 186.7 mg/dL (Normal) 03-Rfw-446356:11 LIPID Comments: PATIENT NOT FASTING/DEMANDED TO BE [...] mg/dL VLDL 31 mg/dL (Normal) Range: 40 00-Kvj-023371:11 LIVER Comments: PATIENT NOT FASTING/DEMANDED TO BE DRAWN ALT 43 U/L (Normal) Range: 30-65 D BILI 0.07 mg/dL (Normal) Range: 0.00-0.30 T BILI 0.35 mg/dL (Normal) Range: 0.00-1.00 ALB 3.4 g/dL (Normal) Range: 3.4-5.0 ALK P 210 U/L (Abnormal) Range: 50-136 AST 27 U/L (Normal) Range: 15-37 T PROT 6.4 g/dL (Normal) Range: 6.4-8.2 17-Wmq-569439:23 Urinalysis, Office (25563) Comments: done BC UA - BILIRUBIN Negative (Normal) UA - BLOOD Hemolyzed Large (Normal) UA - GLUCOSE Large (Normal) Comments: > 1000mg/dL UA - KETONES Negative mg/dL (Normal) UA - LEUKOCYTE ESTERASE Moderate (Normal) UA - NITRITE Negative (Normal) UA - PH 6.0 (Normal) UA - PROTEIN 30 mg/dL (Normal) UA - SPECIFIC GRAVITY 1.010 (Normal) URINE UROBILINGN NITA TIMED Normal mg/dL (Normal) 92-Kwg-682539:44 MYOCARD PERF SPECT REST/STRESS Radiology Report See Note (Normal) Comments: Exam Number: [id number] MYOCARDIAL PERFUSION SCAN TECHNIQUEThe patient was injected [...] of 37%. Reported By: NOE MORRIS M.D. 88-Mhn-71203:39 SPINE, LUMBAR W/W/O CONTRAST Radiology Report See Note (Normal) Comments: Exam Number: [id number] MAGNETIC RESONANCE IMAGING OF THE LUMBAR SPINE [...] other abnormality. Reported By: SUSAN GOMEZ M.D. 73-Jbp-683962:04 CULTURE, URINE URINE CULTURE See Note {CFU/mL} (Normal) Comments: COLONY COUNT 25,000-50,000 ORGANISM 1: MIXED GRAM POSITIVE ORGANISMS 59-Ybc-104070:15 Urinalysis, Office (55769) UA - LEUKOCYTE ESTERASE Small (Normal) Comments: aw UA - NITRITE Negative (Normal) UA - PH 5.0 (Normal) UA - PROTEIN Negative mg/dL (Normal) URINE UROBILINGN NITA TIMED Normal mg/dL (Normal) UA - BILIRUBIN Negative (Normal) UA - BLOOD Negative (Normal) UA - GLUCOSE Negative (Normal) UA - KETONES Negative mg/dL (Normal) UA - SPECIFIC GRAVITY 1.025 (Normal) 08-Tpl-553971:09 Blood Glucose , Office (89338) Blood Glucose , Office 231 (Normal) 93-Oul-475368:09 HgA1C , Office (94426) HgA1C , Office 7.1 % (Normal) Range: 4.6 - 7.1 70-Yng-484346:42 CBCD,SMEAR DIFF CELLS COUNTED 100 (Normal) HCT [...] for patient's is the eGFRmultiplied by 1.212. [facility] Laboratory uses the abbreviated Modification [...] Disease W/O Kidney Disease>/= 90 Stage One Pwoulu07 - 89 Stage Two Suspect Decreased GFR30 [...] T PROT 6.5 g/dL (Normal) Range: 6.4-8.2 63-Yjn-067245:42 LIPID CHOL 182 mg/dL (Normal) Comments: <200 [...] mg/dL VLDL 36 mg/dL (Normal) Range: 5-40 68-Pei-286902:42 MICROALB:CRE UR MALB:CREAT 35.4 {mg/g_CRE} (Abnormal) MICROALBUMIN,UR 54.7 mg/L (Normal) UR CREAT 154.6 mg/dL (Normal) 16-Ujh-134087:42 TSH 2.57 {uIU/mL} (Normal) Range: 0.34-4.82 :40 CULTURE, URINE URINE CULTURE See Note {CFU/mL} (Normal) Comments: COLONY COUNT 1000-10,000 ORGANISM 1: MIXED GRAM POS & NEG ORGANISMS 48-Oqs-509022:36 Urinalysis, Office (21404) UA - BILIRUBIN Negative (Normal) UA - BLOOD Non Hemolyzed Trace (Normal) UA - KETONES Negative mg/dL (Normal) UA - LEUKOCYTE ESTERASE Moderate (Normal) UA - NITRITE Negative (Normal) UA - PH 5.0 (Normal) UA - PROTEIN Negative mg/dL (Normal) UA - SPECIFIC GRAVITY 1.015 (Normal) URINE UROBILINGN NITA TIMED Normal mg/dL (Normal) UA - GLUCOSE Negative (Normal) 51-Szj-853253:20 CULTURE, URINE URINE CULTURE See Note {CFU/mL} (Normal) Comments: COLONY COUNT 25,000-50,000 ORGANISM 1: MIXED GRAM POS & NEG ORGANISMS :12 Urinalysis, Office (24523) UA - BILIRUBIN Negative (Normal) UA - BLOOD Negative (Normal) UA - GLUCOSE Negative (Normal) UA - KETONES Negative mg/dL (Normal) UA - LEUKOCYTE ESTERASE Small (Normal) UA - NITRITE Negative (Normal) UA - PH 6.0 (Normal) UA - PROTEIN Negative mg/dL (Normal) UA - SPECIFIC GRAVITY 1.005 (Normal) URINE UROBILINGN NITA TIMED Normal mg/dL (Normal) 88-Bez-880116:08 CBCD,SMEAR DIFF CELLS COUNTED 100 (Normal) EOS [...] 47-70 WBC 5.1 K/mm3 (Normal) Range: 4.4-11.0 28-Bcm-383199:08 COMP METABOLIC A/G 1.5 {RATIO} (Normal) Range: [...] Range: 0.34-4.82 :28 Blood Glucose , Office (34262) Blood Glucose , Office 124 (Normal) :28 HgA1C , Office (73091) HgA1C , Office 6.1 % (Normal) Range: 4.6 - 7.1 :38 CERULOPLAS 1560 21.3 mg/dL (Normal) Range: 17.9-53.3 Comments: Performed At: [address] [id number] :[id number] FERRITIN 189 ng/mL (Normal) Range: 8-252 :38 HEP-ABC 069210 HB CORE [id number] SeeNote (Normal) Comments: Result: Negative HB SURF [...] Please note reference interval change HEP A AB,T.6750 SeeNote (Normal) Comments: Result: Negative HEP A IgM 6734 SeeNote (Normal) Comments: Result: Negative HEP B CORE,TOT SeeNote (Normal) Comments: Result: Negative HVC Ab <0.1 (Normal) Range: 0.0-0.9 Comments: NegativeNot infected with HCV, unless recent infection issuspected or other evidence exists to indicate HCVinfection. AMENDED REPORT 05/21/081907 HVC Ab previously reported as: RIBA RESULT <TEST NOT PERFORMED> (Normal) 00-Adn-327689:38 LIVER ALB 3.5 g/dL (Normal) Range: 3.4-5.0 ALK P 162 U/L (Abnormal) Range: 50-136 ALT 50 U/L (Normal) Range: 30-65 AST 21 U/L (Normal) Range: 15-37 D BILI 0.05 mg/dL (Normal) Range: 0.00-0.30 T BILI 0.38 mg/dL (Normal) Range: 0.00-1.00 T PROT 6.5 g/dL (Normal) Range: 6.4-8.2 66-Lvt-717102:38 MITOCHN AB 6650 <20.0 {Units} (Normal) Range: [...] T PROT 6.5 g/dL (Normal) Range: 6.4-8.2 0-Ect-838124:02 THYROID (HP) Radiology Report See Note (Normal) Comments: Exam Number: [id number] THYROID ULTRASOUND HISTORYThyromegaly. High-resolution, real-time linear images [...] is recommended. Reported By: TRUE NAGEL M.D. 33-Xbf-994161:05 Blood Glucose , Office (78997) Blood Glucose , Office 135 (Normal) 87-Nnw-241371:05 HgA1C , Office (37360) HgA1C , Office 5.6 % (Normal) Range: 4.6 - 7.1 84-Mmv-50294:02 CBCD,SMEAR DIFF ANISO 1+ (Normal) CELLS COUNTED [...] Report See Note (Normal) Comments: Exam Number: [id number] CT BRAIN WITHOUT AND WITH INTRAVENOUS CONTRAST [...] clinically warranted. Reported By: AIDAN MASON M.D. 10-Njw-475896:30 CBCD Comments: CALL [phone] TO [phone] BASO% 0.8 % (Normal) Range: 0-1 EO% [...] Range: 4.4-11.0 :30 COMP METABOLIC Comments: CALL [phone] TO [phone] A/G 1.5 {RATIO} (Normal) Range: 0.9-2.4 ALB [...] T PROT 5.9 g/dL (Abnormal) Range: 6.4-8.2 08-Nea-173463:30 LDH 206 U/L (Abnormal) Comments: CALL [phone] TO [phone] Range: 100-190 :30 URIC 5.7 mg/dL (Normal) Comments: CALL [phone] TO [phone] Range: 2.6-6.0 :30 CULT, DP WOUND Comments: [...] mg/dL (Abnormal) Range: 40-230 Comments: Performed At: [address] [id number] :41 LDH 211 U/L (Abnormal) Range: 100-190 4-May-71876:41 MG 1.6 mg/dL (Normal) Range: 1.5-2.2 :41 [...] 0.34-4.82 :20 BMP Comments: COMMENTS: BED 13 FASTPrecautionsharath*: NOT APPLICABLE BUN 18 mg/dL (Normal) Range: [...] K/mm3 (Abnormal) Range: 4.4-11.0 :30 AFB C&S 267017 Comments: Precautions*: CHEMO PRECAUTIONSSPECIMEN DESCRIPTION: #2 SAME [...] for testing. ec-2 BF/CSF (Normal) 0069 :30 66-Owc-30219:30 FLUID P-FLU (Normal) Comments: OPERATION Not noted [...] DRAWN 07/22/06-TEST MISSED Range: 100-190 :51 SPE [id number] A/G RATIO 1.3 (Normal) Range: 0.7-2.0 ALBUMIN [...] Evidenceof monoclonal protein is not apparent.Performed At: [address] [id number] M-SPIKE SeeNote (Normal) Comments: Result: Not Observed NOTE: Comment (Normal) Comments: Protein electrophoresis scan will follow via mail orcourier. PROTEIN,TOTAL 6.5 g/dL (Normal) Range: 6.0-8.5 :49 Blood Glucose , Office (62790) Blood Glucose , Office 84 (Normal) :49 HgA1C , Office (98734) HgA1C , Office 6.6 % (Normal) Range: [...] Paroxysmal tachycardia Planned Observations METABOLIC PANEL, BASIC (72235)Indication: CHF (congestive heart failure) On: 46-Zmk-530428:05 Request CPK MB FRACTION (02295)Indication: SOB (shortness of breath) On: :21 Request Comments: stat ASSAY, TROPONIN, QUANTITATIVE (aka Troponin I) (19821)Indication: SOB (shortness of breath) On: :21 Request Comments: stat CBC W/AUTO DIFF WBC (82885)Indication: SOB (shortness of breath) On: :08 Request Comments: stat METABOLIC PANEL, COMPREHENSIVE (81629)Indication: SOB (shortness of breath) On: :08 Request Comments: stat D-Dimer (67700)Indication: SOB (shortness of breath) On: :08 Request Comments: stat BNTP (69506)Indication: SOB (shortness of breath) On: :08 Request Comments: stat CBC with auto diff (42007)Indication: Diabetes mellitus type II, controlled On: :03 Request LIPID PANEL (68268)Indication: Diabetes mellitus type II, controlled On: :03 Request METABOLIC PANEL, COMPREHENSIVE (34264)Indication: Diabetes mellitus type II, controlled On: :03 Request HGB A1C (62111)Indication: Diabetes mellitus type II, controlled On: :02 Request TSH (THYROID STIMULATING HORMONE) (86082)Indication: Acquired hypothyroidism On: : Request Metabolic Panel, Basic (92185)Indication: Hyponatremia On: 03-Vbz-867205:00 Request TSH (60925)Indication: Diabetes mellitus type II, controlled On: :48 Request Vitamin B-12 (cyanocobalamin) (41702)Indication: B12 deficiency On: : Request CBC WITH MANUAL DIFF (98669)Indication: B12 deficiency On: :45 Request T3, FREE (TRIDOTHYRONINE) (39760)Indication: Thyroid nodule On: 48 Request Comments: add to labs already drawn T4, FREE (THYROXINE) (15563)Indication: Thyroid nodule On: 47 Request Comments: add to labs already drawn Digoxin (32969)Indication: Cardiomyopathy On: 44 Request LIPID PANEL (18502)Indication: Mixed hyperlipidemia On: :43 Request TSH (02302)Indication: Acquired hypothyroidism On: :43 Request Vitamin D Hydroxy (55040)Indication: Vitamin D deficiency On: 43 Request KVBGX-EAHOYEHAOGZ-NRBTD (99406)Indication: Fatty liver On: :42 Request VITAMIN B-12 (CYANOCOBALAMIN) (96247)Indication: Fatigue On: 42 Request URINALYSIS, W/ MICRO (12885)Indication: Diabetes mellitus type II, controlled On: :30 Request MICROALBUMIN: CREATININE RATIO (47053) AND (22144)Indication: Diabetes mellitus type II, controlled On: : Request CBC with auto diff (65610)Indication: Diabetes mellitus type II, controlled On: : Request METABOLIC PANEL, COMPREHENSIVE (44490)Indication: Diabetes mellitus type II, controlled On: : Request HGB A1C (68489)Indication: Diabetes mellitus type II, controlled On: 68-Qrw-449066:29 Request HEPATIC FUNCTION PANEL (95944)Indication: Elevated liver enzymes On: 9-Ial-138976:38 Request Comments: do in hospital tuesday when get US Metabolic Panel, Comprehensive (18196)Indication: Epigastric pain On: 85-Ais-427163:54 Request Sed Rate Erythrocyte (19749)Indication: Epigastric pain On: :54 Request CBC, Platelets & Auto Diff (61339)Indication: Epigastric pain On: :54 Request OVA & PARASITE DIR SMEAR (57952)Indication: Diarrhea On: :53 Request OCCULT BLOOD FECES SCREEN (50358)Indication: Diarrhea On: :53 Request LEUKOCYTE COUNT, FECAL (96088)Indication: Diarrhea On: :53 Request C-DIFFICILE, STOOL (41649)Indication: Diarrhea On: :53 Request GENESIS CULTURE-STOOL (50606)Indication: Diarrhea On: :53 Request Magnesium (39650)Indication: Fatigue On: 98-Nyw-526950:42 Request Vitamin B-12 (cyanocobalamin) (03637)Indication: Fatigue On: 79-Ytk-427843:41 Request MICROALBUMIN: CREATININE RATIO (55802) AND (71676)Indication: Diabetes mellitus type II, controlled On: 95-Scw-160955:40 Request LIPID PANEL (39304)Indication: Mixed hyperlipidemia On: 14-Tpm-388479:39 Request CBC W/AUTO DIFF WBC (20759)Indication: Fatty liver On: 39-Khm-388577:30 Request METABOLIC PANEL, COMPREHENSIVE (99713)Indication: Fatty liver On: 85-Pou-558759:30 Request Vitamin D Hydroxy (99220)Indication: Vitamin D deficiency On: 76-Xlb-651090:30 Request TSH (86473)Indication: Acquired hypothyroidism On: 82-Fia-049346:30 Request Digoxin (91650)Indication: Cardiomyopathy On: 63-Gdm-039709:29 Request LIPASE (84808)Indication: Epigastric pain On: :28 Request AMYLASE (03988)Indication: Epigastric pain On: 84-Mzx-410736:28 Request URINE GENESIS CULTURE-IDENTIFICATN (41873)Indication: Leukocytes in urine On: 27-Enn-805581:38 Request MICROALBUMIN: CREATININE RATIO (67673) AND (49830)Indication: Essential hypertension with goal blood pressure less than 130/80 On: :58 Request CBC W/AUTO DIFF WBC (39657)Indication: Essential hypertension with goal blood pressure less than 130/80 On: :58 Request METABOLIC PANEL, COMPREHENSIVE (19622)Indication: Essential hypertension with goal blood pressure less than 130/80 On: :58 Request MALHQ-RQHGDVFMFRE-OMCVZ (06864)Indication: Abnormal tumor markers On: :57 Request Vitamin D Hydroxy (03730)Indication: Vitamin D deficiency On: :09 Request LIPOPROTEIN, BLD, BY NMR (53015)Indication: Mixed hyperlipidemia On: :09 Request CBC W/AUTO DIFF WBC (75435)Indication: Diabetes mellitus type II, controlled On: :09 Request METABOLIC PANEL, COMPREHENSIVE (62789)Indication: Diabetes mellitus type II, controlled On: :09 Request Potassium Serum (91059)Indication: Hypopotassemia On: 62-Kic-175022:02 Request HCRVQ-GZSCJKERDFM-MXWSX (49406)Indication: Fatty liver On: 83-Ret-528015:57 Request MICROALBUMIN: CREATININE RATIO (01708) AND (41326)Indication: Essential hypertension with goal blood pressure less than 130/80 On: :45 Request CBC W/AUTO DIFF WBC (99933)Indication: Essential hypertension with goal blood pressure less than 130/80 On: :45 Request METABOLIC PANEL, COMPREHENSIVE (48097)Indication: Essential hypertension with goal blood pressure less than 130/80 On: :45 Request Vitamin D Hydroxy (12749)Indication: Vitamin D deficiency On: :45 Request TSH (19150)Indication: Acquired hypothyroidism On: :45 Request LIPID PANEL (65910)Indication: Mixed hyperlipidemia On: :45 Request CBC W/AUTO DIFF WBC (26883)Indication: Diabetes mellitus type II, controlled On: :28 Request VVORI-KVDZIAFHEVH-IDQFN (11536)Indication: Fatty liver On: : Request METABOLIC PANEL, COMPREHENSIVE (25635)Indication: Mixed hyperlipidemia On: : Request LIPOPROTEIN, BLD, BY NMR (57691)Indication: Mixed hyperlipidemia On: : Request Metabolic Panel, Basic (23025)Indication: Hypopotassemia On: :55 Request Comments: 10 days CBC (AUTO) (82150)Indication: Uncontrolled type II diabetes mellitus On: : Request Vitamin D Hydroxy (78916)Indication: Vitamin D deficiency On: : Request MICROALBUMIN: CREATININE RATIO (98016) AND (31387)Indication: Uncontrolled type II diabetes mellitus On: : Request METABOLIC PANEL, COMPREHENSIVE (15324)Indication: Essential hypertension with goal blood pressure less than 130/80 On: : Request CFZVS-KLJXHVEWTWN-WMXQW (61500)Indication: Fatty liver On: : Request LIPID PANEL (18770)Indication: Mixed hyperlipidemia On: : Request TSH (73840)Indication: Thyroid nodule On: : Request CBC W/AUTO DIFF WBC (01876)Indication: Uncontrolled type II diabetes mellitus On: :47 Request METABOLIC PANEL, COMPREHENSIVE (74709)Indication: Uncontrolled type II diabetes mellitus On: :47 Request LIPID PANEL (15171)Indication: Mixed hyperlipidemia On: :47 Request Vitamin D Hydroxy (96238)Indication: Vitamin D deficiency On: :47 Request RDUNE-SJJQRZIGVWM-RQAAY (23265)Indication: Fatty liver On: : Request CBC W/AUTO DIFF WBC (63084)Indication: Uncontrolled type II diabetes mellitus On: :26 Request LIPID PANEL (66342)Indication: Mixed hyperlipidemia On: :25 Request MICROALBUMIN: CREATININE RATIO (04291) AND (14874)Indication: Uncontrolled type II diabetes mellitus On: :25 Request TSH (12197)Indication: Acquired hypothyroidism On: :25 Request METABOLIC PANEL, COMPREHENSIVE (72523)Indication: Essential hypertension with goal blood pressure less than 130/80 On: :25 Request Vitamin D Hydroxy (62690)Indication: Vitamin D deficiency On: :25 Request CALCIFEDIOL (13780)Indication: Vitamin D deficiency On: 68-Ubn-422564:44 Request Comments: to be done Jun 2015 after done with ergocalciferol URINE GENESIS CULTURE (NITA COL COUNT) (03143)Indication: UTI (lower urinary tract infection) On: 3-Txj-170756:22 Request LIPID PANEL (60204)Indication: Mixed hyperlipidemia On: 4-Kjk-441513:15 Request CBC W/AUTO DIFF WBC (06015)Indication: Uncontrolled type II diabetes mellitus On: 6-Ekn-844442:14 Request METABOLIC PANEL, COMPREHENSIVE (21814)Indication: Uncontrolled type II diabetes mellitus On: 6-Ruz-019436:14 Request TSH (49790)Indication: Acquired hypothyroidism On: 9-Ywm-528147:14 Request DFEJG-VFXWMIDDNWK-DBOTH (73043)Indication: Fatty liver On: 0-Cgn-261077:14 Request CBC, Platelets & Auto Diff (88553)Indication: HX, PERSONAL, MALIGNANCY, LYMPHATIC NEC On: 53-Abg-24005:07 Request CBC WITH MANUAL DIFF (16441)Indication: Abnormal glucose tolerance test On: :33 Request MICROALBUMIN: CREATININE RATIO (73805) AND (53877)Indication: Abnormal glucose tolerance test On: :33 Request LIPID PANEL (25465)Indication: Mixed hyperlipidemia On: :31 Request METABOLIC PANEL, COMPREHENSIVE (73755)Indication: Abnormal glucose tolerance test On: :31 Request URINE GENESIS CULTURE-NITA COL COUNT (94990)Indication: Dysuria On: 49-Ldr-676620:03 Request RETICULOCYTE COUNT (27430)Indication: Anemia On: :37 Request Iron (53350)Indication: Anemia On: :37 Request Ferritin (41732)Indication: Anemia On: :37 Request CBC (Auto) (37362)Indication: Anemia On: :37 Request CBC, Platelets & Auto Diff (84670)Indication: Fever On: :03 Request Metabolic Panel, Comprehensive (14780)Indication: Fever On: :03 Request HgA1C , Office (89897)Indication: Abnormal glucose tolerance test On: :55 Request CBC WITH MANUAL DIFF (54853)Indication: Abnormal glucose tolerance test On: :53 Request METABOLIC PANEL, COMPREHENSIVE (75401)Indication: Abnormal glucose tolerance test On: :53 Request LIPID PANEL (48685)Indication: Mixed hyperlipidemia On: :53 Request LHRSH-SBKBQYPIUEK-JYQUA (14040)Indication: Fatty liver On: :53 Request PTT (Activated Partial Thromboplastin Time) (07593)Indication: Fatty liver On: :53 Request PT (Prothrobim Time) (05221)Indication: Fatty liver On: :53 Request MICROALBUMIN: CREATININE RATIO (72535) AND (63441)Indication: Abnormal glucose tolerance test On: 67-Ron-399562:49 Request Anti-TPO Antibody (13971)Indication: Acquired hypothyroidism On: 98-Vjd-731849:14 Request Comments: 1 month TSH (71580)Indication: Acquired hypothyroidism On: 76-Lsf-543600:13 Request Comments: 1 month T4, FREE (THYROXINE) (95472)Indication: Acquired hypothyroidism On: :13 Request Comments: 1 month T3, FREE (TRIDOTHYRONINE) (90975)Indication: Acquired hypothyroidism On: 16-Lqf-608305:13 Request Comments: 1 month CBC WITH MANUAL DIFF (53791)Indication: Abnormal glucose tolerance test On: :38 Request METABOLIC PANEL, COMPREHENSIVE (28073)Indication: Abnormal glucose tolerance test On: :38 Request LIPID PANEL (08362)Indication: Mixed hyperlipidemia On: :38 Request MICROALBUMIN: CREATININE RATIO (51668) AND (23581)Indication: Abnormal glucose tolerance test On: 36-Llq-979153:56 Request CBC WITH MANUAL DIFF (42570)Indication: Elevated LFTs On: 99-Gnz-947193:56 Request METABOLIC PANEL, COMPREHENSIVE (82641)Indication: Elevated LFTs On: 17-Cpv-615661:56 Request LIPID PANEL (67380)Indication: Mixed hyperlipidemia On: 53-Ulr-746628:56 Request TSH (63523)Indication: Acquired hypothyroidism On: 24-Dxi-894886:56 Request CBC WITH MANUAL DIFF (11309)Indication: Essential hypertension with goal blood pressure less than 130/80 On: :34 Request TSH (79241)Indication: Acquired hypothyroidism On: :34 Request METABOLIC PANEL, COMPREHENSIVE (41544)Indication: Fatty liver On: :33 Request LIPID PANEL (35842)Indication: Mixed hyperlipidemia On: :33 Request MICROALBUMIN: CREATININE RATIO (78294) AND (97285)Indication: Uncontrolled type II diabetes mellitus On: :46 Request TSH (09224)Indication: Acquired hypothyroidism On: :46 Request LIPID PANEL (03159)Indication: Mixed hyperlipidemia On: :45 Request METABOLIC PANEL, COMPREHENSIVE (66347)Indication: Elevated LFTs On: :45 Request HgA1C , Office (39979)Indication: Uncontrolled type II diabetes mellitus On: :28 Request URINE GENESIS CULTURE-NITA COL COUNT (74170)Indication: Cystitis, acute On: :43 Request URINE GENESIS CULTURE-IDENTIFICATN (47817)Indication: Dysuria On: :10 Request CBC WITH MANUAL DIFF (00466)Indication: Headache On: 88-Cuk-025313:56 Request METABOLIC PANEL, COMPREHENSIVE (15333)Indication: Headache On: 92-Irm-002699:56 Request LIPID PANEL (41648)Indication: Mixed hyperlipidemia On: 32-Rje-989409:56 Request TSH (52814)Indication: Acquired hypothyroidism On: 81-Iah-528754:56 Request METABOLIC PANEL, COMPREHENSIVE (28025)Indication: Uncontrolled type II diabetes mellitus On: 94-Fkm-751546:28 Request HEPATIC FUNCTION PANEL (86653)Indication: Mixed hyperlipidemia On: : Request LIPID PANEL (23034)Indication: Mixed hyperlipidemia On: : Request LIPID PANEL (61935)Indication: Mixed hyperlipidemia On: :39 Request MICROALBUMIN: CREATININE RATIO (83309) AND (30675)Indication: Uncontrolled type II diabetes mellitus On: 39 Request CBC WITH MANUAL DIFF (19191)Indication: Essential hypertension with goal blood pressure less than 130/80 On: :39 Request METABOLIC PANEL, COMPREHENSIVE (96372)Indication: Elevated LFTs On: :39 Request TSH (39518)Indication: Acquired hypothyroidism On: :36 Request TSH (22584)Indication: Thyroid nodule On: :20 Request METABOLIC PANEL, COMPREHENSIVE ([id number])Indication: Elevated LFTs On: : Request LIPID PANEL ([id number])Indication: Mixed hyperlipidemia On: : Request C-REACTIVE PROTEIN ([id number])Indication: Abnormal findings on diagnostic imaging of other specified body structures On: [id number]: Request SED RATE ERYTHROCYTE ([id number])Indication: Abnormal findings on diagnostic imaging of other specified body structures On: [id number]-[id number]: Request LDH (LD) (LACTATE DEHYDROGENASE) ([id number])Indication: Abnormal findings on diagnostic imaging of other specified body structures On: [id number]-[id number]: Request Urine Protein Electrophoresis (UPEP) ([id number])Indication: Abnormal findings on diagnostic imaging of other specified body structures On: 36-Gop-804250: Request Serum Protein Electrophoresis (SPEP) (22061)Indication: Abnormal findings on diagnostic imaging of other specified body structures On: 44-Qyr-209220: Request METABOLIC PANEL, COMPREHENSIVE ([id number])Indication: Diabetes mellitus type II, controlled On: : Request LIPID PANEL ([id number])Indication: Mixed hyperlipidemia On: : Request URINE GENESIS CULTURE-NITA COL COUNT ([id number])Indication: Dysuria On: 61-Kgr-493596:58 Request HEPATIC FUNCTION PANEL ([id number])Indication: Elevated LFTs On: :18 Request LIPID PANEL ([id number])Indication: Mixed hyperlipidemia On: 62-Xya-987178:17 Request MICROALBUMIN: CREATININE RATIO ([id number]) AND ([id number])Indication: Uncontrolled type II diabetes mellitus On: 1-Lec-074059:47 Request CBC WITH MANUAL DIFF ([id number])Indication: Uncontrolled type II diabetes mellitus On: 5-Erz-340697:47 Request METABOLIC PANEL, COMPREHENSIVE ([id number])Indication: Uncontrolled type II diabetes mellitus On: 9-Xne-035246:47 Request HEPATIC FUNCTION PANEL ([id number])Indication: Elevated LFTs On: 8-Zoj-460331:45 Request LIPID PANEL ([id number])Indication: Mixed hyperlipidemia On: 6-Nlo-492434:44 Request HEPATIC FUNCTION PANEL ([id number])Indication: Fatty liver On: 4-Afe-211155:30 Request LIPID PANEL ([id number])Indication: Mixed hyperlipidemia On: 2-Ccv-795803:30 Request URINE GENESIS CULTURE (NITA COL COUNT) ([id number])Indication: Low back pain potentially associated with radiculopathy On: 24-Uwi-221413:03 Request MICROALBUMIN: CREATININE RATIO ([id number]) AND ([id number])Indication: Dysuria On: 43-Mdn-801379:05 Request LIPID PANEL ([id number])Indication: Dysuria On: 94-Azb-866376:05 Request TSH ([id number])Indication: Dysuria On: 34-Qgz-210283:05 Request METABOLIC PANEL, COMPREHENSIVE ([id number])Indication: Dysuria On: 08-Hku-137493:04 Request CBC WITH MANUAL DIFF ([id number])Indication: Dysuria On: 35-Joe-633812:04 Request URINE GENESIS CULTURE-NITA COL COUNT ([id number])Indication: Dysuria On: 02-Vxu-885253:45 Request URINE GENESIS CULTURE (NITA COL COUNT) ([id number])Indication: Dysuria On: 05-Knw-476468:17 Request METABOLIC PANEL, COMPREHENSIVE ([id number])Indication: Fatty liver On: 11-Jlh-94514:58 Request Magnesium (94099)Indication: Palpitations On: 91-Ekq-77750:51 Request TSH ([id number])Indication: Palpitations On: 76-Uvf-96161:51 Request METABOLIC PANEL, COMPREHENSIVE ([id number])Indication: Palpitations On: 51-Oyi-31511:51 Request CBC WITH MANUAL DIFF ([id number])Indication: Palpitations On: 84-Mot-94102:51 Request GGT (Gamma Glutamyl Transferase) ([id number])Indication: Elevated LFTs On: 49-Lfc-195415:16 Request HEPATIC FUNCTION PANEL ([id number])Indication: Elevated LFTs On: 53-Wko-154286:16 Request VITAMIN B-12 (CYANOCOBALAMIN) ([id number])Indication: Fatigue On: 12-Iuj-76535:23 Request MICROALBUMIN URINE QUANT ([id number])Indication: Diabetes mellitus type II, controlled On: :22 Request TSH ([id number])Indication: Fatigue On: :22 Request CBC WITH MANUAL DIFF ([id number])Indication: Diabetes mellitus type II, controlled On: :22 Request METABOLIC PANEL, COMPREHENSIVE ([id number])Indication: Diabetes mellitus type II, controlled On: :22 Request LIPID PANEL ([id number])Indication: Mixed hyperlipidemia On: :22 Request HEPATIC FUNCTION PANEL ([id number])Indication: Mixed hyperlipidemia On: 88-Xte-928291:48 Request LIPID PANEL ([id number])Indication: Mixed hyperlipidemia On: 13-Vwa-733134:48 Request Comments: in 3 mos Planned Encounters Medical; [facility] 1 Month FU - On: 12-Sep-2018 8:00 [facility] Fast DO, Sangeetha A Fast DO, Sangeetha A Medical; Overnight Pulse Ox Placement - On: 20-Sep-2018 13:00 [facility] Visit, Nurse Planned Procedures Echo CompleteBy: Fast DO, Sangeetha A On: 04-Sep-2018 Intent Fast DO, Sangeetha A CTA CHEST W/W/O CONTRAST ([id number])By: On: 04-Sep-2018 Intent Fast DO, Sangeetha A Fast DO, Sangeetha A Overnight Pulse OX ([id number])By: Fast On: 04-Sep-2018 Intent DO, Sangeetha A Fast DO, Sangeetha A Spirometry ([id number])By: Fast DO, On: 04-Sep-2018 Intent Sangeetha A Fast DO, Sangeetha A Comments: difficutly with insp effort severe restriction ELECTROCARDIOGRAM, COMPLETE (ECG) On: 04-Sep-2018 Intent ([id number])By: Fast DO, Sangeetha A Fast DO, Comments: ekg- 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 and possible recent anterior wall mi- nonspecific st depression Sangeetha A Flu Vaccine (Quadrivalent) 48625Oy: On: 21-Jul-2018 Intent Fast DO, Sangeetha A Fast DO, Sangeetha A SCREENING DIGITAL TOMOSYNTHESIS OF On: 21-Jul-2018 Intent BREAST ([id number])By: Fast DO, Sangeetha A Fast DO, Sangeetha A B 12 Injection, 1000 mcg ([id number])By: On: 31-May-2018 Intent Fast DO, Sangeetha A Fast DO, Sangeetha A Comments: Lot#[id number] EXP:[id number] given:left deltoid Given By: clarita albright ABN signed CT - Abdomen (IV Contrast Needed)By: On: 31-May-2018 Intent Fast DO, Sangeetha A Fast DO, Sangeetha A Doppler Ultrasound OtherBy: Fast DO, On: 19-May-2018 Intent Sangeetha A Fast DO, Sangeetha A Comments: left arm ULTRASOUND OF LIVER ([id number])By: On: 24-Feb-2018 Intent Blanca KING, Jennifer Gregory PFT - CompleteBy: Fast DO, Sangeetha A On: 21-Oct-2017 Intent Fast DO, Sangeetha A Comments: at [facility] SCREENING DIGITAL TOMOSYNTHESIS OF On: 21-Oct-2017 Intent BREAST ([id number])By: Fast DO, Sangeetha A Comments: end of oct Fast DO, Sangeetha A EsophagramBy: Fast DO, Sangeetha A Fast On: 21-Oct-2017 Intent DO, Sangeetha A Comments: with 12 mm tablet ELECTROCARDIOGRAM, COMPLETE (ECG) On: 21-Oct-2017 Intent ([id number])By: Fast DO, Sangeetha A Fast DO, Sangeetha A Flu Vaccine (Quadrivalent) 45891Us: On: 07-Jun-2017 Intent Fast DO, Sangeetha A [...] DO, Sangeetha A DEXA SCAN AXIAL SKELETON ([id number])By: On: 16-Aug-2016 Intent Fast DO, Sangeetha A Fast DO, Sangeetha A MAMMOGRAM, SCREENING, BOTH BREAST On: 16-Aug-2016 Intent ([id number])By: Fast DO, Sangeetha A Fast DO, Sangeetha A ELECTROCARDIOGRAM, COMPLETE (ECG) On: 16-Aug-2016 Intent ([id number])By: Fast DO, Sangeetha A Fast DO, Sangeetha A Flu Vaccine (Quadrivalent) 77673Qo: On: 16-Aug-2016 Intent Fast DO, Sangeetha A Fast DO, Sangeetha A Comments: FLUlot: [id number]/09site:Lt deltoidroute:IMdose:.5mlDEOH[facility] [place] ADMINIST[facility]ATION OF INFLUENZA VIRUS On: 16-Aug-2016 Intent VACCINE ([id number])By: Fast DO, Sangeetha A Fast DO, Sangeetha A Ultrasound - ThyroidBy: Fast DO, On: 10-Nov-2015 Intent Sangeetha A Fast DO, Sangeetha A Ultrasound - LiverBy: Fast DO, Sangeetha On: 10-Nov-2015 Intent A Fast DO, Sangeetha A Flu Vaccine (Quadrivalent) 03934Pv: On: 08-Aug-2015 Intent Fast DO, Sangeetha A Fast DO, Sangeetha A Comments: Lot #[id number]-L dltd, IMDose prefilled syringegiven by:AMRITA JassoNVIS and ABN signed MAMMOGRAM, SCREENING, BOTH BREAST On: 08-Aug-2015 Intent ([id number])By: Fast DO, Sangeetha A Fast DO, Sangeetha A Ultrasound - ThyroidBy: Fast DO, On: 08-Aug-2015 Intent Sangeetha A Fast DO, Sangeetha A Ultrasound - LiverBy: Fast DO, Sangeetha On: 08-Aug-2015 Intent A Fast DO, Sangeetha A ADMINISTRATION OF PNEUMOCOCCAL On: 01-Nov-2014 Intent VACCINE (G0009)By: Fast DO, Sangeetha A Fast DO, Sangeetha A PNEUM VAC ADLT/IMUMNOSPR, SBC/INTRM On: 01-Nov-2014 Intent ([id number])By: Fast DO, Sangeetha A Fast DO, Comments: Lot:[id number]:02/29/16Dose:0.5mgRoute:imSite:mk Donis By:BATSHEVA Diaz Ultrasound - LiverBy: Fast DO, Sangeetha On: 05-Jul-2014 Intent A Fast DO, Sangeetha A BILATERAL MAMMOGRAMS ([id number])By: Tavon On: 05-Jul-2014 Intent DO, Sangeetha A Fast DO, Sangeetha A Ultrasound - ThyroidBy: Fast DO, On: 05-Jul-2014 Intent Sangeetha A Fast DO, Sangeetha A ADMINISTRATION OF INFLUENZA VIRUS On: 05-Jul-2014 Intent VACCINE (G0008)By: Tavon DAVIS Sangeetha A Comments: Influenzalot:[id number]:03/25/2015dose:0.5mLRoute: IMlocation:Lois donis by:marika Fast DO, Sangeetha A FLU VAC, SPLIT, >3 YEARS, INTRAMUSC On: 05-Jul-2014 Intent ([id number])By: Sangeetha Irvin DO Fast DO, Sangeetha A INFUSION, NORMAL SALINE SOLUTION , On: 15-Apr-2014 Intent 250 CC ([id number])By: Angelina Winn CNP Rocephon Injection, 1 Gm (J0696)By: On: 15-Apr-2014 Intent Angelina Winn CNP Comments: Rocephin 1gmLot #[id number]. [id number] in R hand x 1 stick with [...] SPLIT, >3 YEARS, INTRAMUSC On: 27-Jul-2013 Intent (02152)By: Fast DO, Sangeetha A Fast DO, Sangeetha A Eprescribed prescriptions ([id number])By: On: 04-Jun-2013 Intent Delisa Melendez LPN SPECIMEN HANDLING/TRANSPORT On: 04-Jun-2013 Intent ([id number])By: Delisa Melendez LPN INFUSION, NORMAL SALINE SOLUTION , On: 15-Feb-2013 Intent 1000 CC (Special Coverage Comments: 500 cc Instructions Apply. See MCM: 2049) ([id number])By: Jennifer Rios MD HYDRATION IV INFUSION, INIT On: 15-Feb-2013 Intent (76085)By: Jennifer Riso MD Ultrasound - ThyroidBy: Fast DO, On: 19-Jan-2013 Intent Sangeetha A Fast DO, Sangeetha A MAMMOGRAM, SCREENING, BOTH BREASTS On: 19-Jan-2013 Intent ([id number])By: Fast DO, Sangeetha A Fast DO, Comments: due in january Sangeetha A Eprescribed prescriptions ([id number])By: On: 19-Jan-2013 Intent Isabella Grigsby Pulse Oximetry (07618)By: Seb, On: 29-Sep-2012 Intent Isabella Comments: 98% [...] MAMMOGRAM, SCREENING, BOTH BREASTS On: 24-Jan-2012 Intent (92111)By: Fast DO, Sangeetha A Fast DO, Sangeetha A TDAP VACCINE >7 IM ([id number])By: Fast On: 04-Oct-2011 Intent DO, Sangeetha A Fast DO, Sangeetha A Comments: Lot:[id number]:08/12/13Amt:prefilledRoute:IMSite:right deltGiven By: NATALEE Spence Aerosol Treatment (95190)By: Blanca On: 26-Aug-2011 Intent Jennifer KING Pulse Oximetry (18850)By: Blanca On: 26-Aug-2011 Intent Jennifer KING SPECIMEN HANDLING/TRANSPORT On: 23-Jul-2011 Intent (71031)By: Delisa Melendez LPN FLU VAC, SPLIT, >3 YEARS, INTRAMUSC On: 05-Jul-2011 Intent (61608)By: Isabella Grigsby Comments: Lot #[id number]/20/12Site-left deltoidgiven by: Lisa Bello LPN Ultrasound - ThyroidBy: Fast DO, On: 05-Jul-2011 Intent Sangeetha A Fast DO, Sangeetha A MAMMOGRAM, SCREENING, BOTH BREASTS On: 05-Jul-2011 Intent ([id number])By: Fast DO, Sangeetha A Fast DO, Sangeetha A ADMINISTRATION OF INFLUENZA VIRUS On: 05-Jul-2011 Intent VACCINE (G0008)By: Isabella Grigsby Eprescribed prescriptions (G8553)By: On: 04-Jun-[address] - Brain/HeadBy: Fast DO, Sangeetha A On: 07-Oct-2010 Intent Fast DO, Sangeetha A Comments: with and without contrast MAMMOGRAM, SCREENING, BOTH BREASTS On: 26-Jun-2010 Intent ([id number])By: Fast DO, Sangeetha A Fast DO, Sangeetha A ADMINISTRATION OF INFLUENZA VIRUS On: 26-Jun-2010 Intent VACCINE (G0008)By: Fast DO, Sangeetha A Fast DO, Sangeetha A FLU VAC, SPLIT, >3 YEARS, INTRAMUSC On: 26-Jun-2010 Intent (61076)By: Fast DO, Sangeetha A Fast DO, Comments: Lot:[id number]:12/2010Dose:0.5mlRoute:IMSite:Left DeltoidGiven by: HEIDI Alberto Ultrasound - ThyroidBy: Fast DO, On: 07-Jan-2010 Intent Sangeetha A Fast DO, Sangeetha A CT - Spine/CervicalBy: Fast DO, On: 15-Dec-2009 Intent Sangeetha A Fast DO, Sangeetha A Comments: 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 -- need to rule out Pulse Oximetry (48033)By: Fast DO, On: 09-Jul-2009 Intent Sangeetha A Fast DO, Sangeetha A Spirometry (58168)By: Fast DO, On: 10-Jul-2009 Intent Sangeetha A Fast DO, Sangeetha A Comments: good effort and curve- mild restriciton Radiology - Chest- PA and LatBy: On: 09-Jul-2009 Intent Fast DO, Sangeetha A Fast DO, Sangeetha A Pulse Oximetry (20319)By: Fast DO, On: 10-Jul-2009 Intent Sangeetha A Fast DO, Sangeetha A Comments: 98 FLU VAC, SPLIT, >3 YEARS, INTRAMUSC On: 09-Jul-2009 Intent (68142)By: Isabella Grigsby Comments: Lot #[id number]/2010Site-right deltoidDose0.5mlgiven by Juventino Nye LPN IMMUNIZ ADMNIN, 1 VAC, SNGL/COMBO On: 09-Jul-2009 Intent (73701)By: Isabella Grigsby EKG (88560)By: Fast DO, Sangeetha A On: 10-Oct-2008 Intent [...] ADMNIN, 1 VAC, SNGL/COMBO On: 10-Jul-2008 Intent (37954)By: Fast DO, Sangeetha A Fast DO, Sangeetha A FLU VAC, SPLIT, >3 YEARS, INTRAMUSC On: 10-Jul-2008 Intent ([id number])By: Fast DO, Sangeetha A Fast DO, Comments: injection given in left deltoid, pt tolerated welllot # [id number]/ Sangeetha A Holter Monitor 24 hrsBy: Fast DO, On: 10-Jul-2008 Intent Sangeetha A Fast DO, Sangeetha A EKG ([id number])By: Marlene Reddy On: 10-Jul-2008 Intent Comments: ekg [...] swelling- had little ham not much for thanks - she did get better last time with diuretic- taking 2 lasix am 1 at [facility]- no chest pain some palps- supposed to see rosetta in [facility] Diagnosis: BMI 31.0-31.9,adult, Nonsmoker, SOB (shortness of [...] using tylenol and will go back to [place] if need be for shot-sugar fine-n foot [...] off metformin and lisinopril andthen went to [place] for couple weeks then had multiple falls sent back to hospital and transferred to [facility] there for few weeks then to [facility] had lots of pt- and doing [...] fasting blood sugars : (was lower before [place] and 139 last week fasting in the [...] anxiety and depression. Note for Physical exam: [facility] Physical- she is down 107 pounds [...] Reason for hospitalization abdominal pain (Went to [facility] on 02/28/15). Hospitalization details include: [...] previously evaluated by a primary physician (at [facility]- Dr Reyes ). Presentation included [...] is helping her mood- has followup in [place] may 04 - her weight down 20 [...] sees heart failure doctor next week at [facility] - -- mood ebs and flows- [...] of all the problems -goes back to [facility] on tuesday and psych in 2 weeksEncounter [...] or less). 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 for her tachycardia and they told [...]
--- OUTSIDE RECORDS SUMMARY | 2018-10-21 23:21 | XMS RPT_ITS | Continuity of Care Document ---
:1965 Author Organization [facility] Address [facility] 2 [place] [address] Phone Care Team Providers Name Role Phone [...] Status: Active Fibromyalgia (M79.7, 729.1) Comments: seeing Fdeerica Status: Active Gallstones (574.20) Status: Active Gastritis [...] Quantity: 60 {Tablet} Refills: 4 Ordered:21-Jul-2018 Sangeetha JAVEDubd DAVIS Sangeetha A Start : 21-Jul-2018 Active [...] Quantity: 30 {QS} Refills: 11 Ordered:08-Sep-2018 Long HAT MENDER, Amelia L Start : 08-Sep-2018 Active Comments:Home [...] Quantity: 10 {Tablet} Refills: 0 Ordered:23-Feb-2018 Long HAT MENDER, Amelia L Start : 23-Feb-2018 Active AMITIZA, [...] Quantity: 30 {Tablet} Refills: 0 Ordered:05-Jul-2011 Al HAT MENDERDelisa Chaidez Start : 05-Jul-2011 End : 04-Aug-2011 [...] : 25-Jan-2018 End : 19-May-2018 Inactive ERGOCALCIFEROL, 70578CVDS (Oral Capsule) 1 (one) Capsule Capsule twice [...] : 23-Jul-2011 End : 02-Aug-2011 Inactive MAXITROL, 3.5-99534-9.1 (Ophthalmic Ointment) apply to eye lids as [...] hs (50 MG) Inactive Comments:Dr. Hankins NYSTATIN, 259273PFAT/ML (Mouth/Throat Suspension) 5cc Suspension 5 times daily [...] days Quantity: 30 {Tablet_ER_24HR} Refills: 1 Ordered:04-Jun-2011 nIgrid Newton LPN Start : 22-Jan-2011 End : [...] Quantity: 30 {Tablet} Refills: 0 Ordered:19-May-2018 Long HAT MENDER, Amelia L Start : 12-May-2012 End : 19-May-2018 Discontinued Comments:This order discontinued per [facility]. ZOFRAN ODT, 4MG (Oral Tablet Dispersible) qd prn nausea (4 MG) End : 08-Aug-2015 Discontinued Comments:[facility] Allergies and Adverse Reactions Name [...] w/ Contrast Result: Comments: See Note; NOTES: [facility] Cardiovascular Services [address] [place] [address] Echo Complete W/ Contrast 09/06/18 1002 MR#: [id number] Acct: [id number] Name: IFEOMA DÍAZ Rep #: [id number] : 1965 53 From: Boone Ch MD Attending Dr: Sangeetha Irvin DO Status: REG CLI Ordering Dr: Sangeetha Irvin DO Date: 09/06/18 Location: [facility] Sex: F C Admitted: Reason F or [...] Dictated: 09/06/18 1002 Date Transcribed: 09/06/18 1534 Feed Handler: Signed 04-Sep-2018 CTA Chest W/WO Contrast Result: Comments: See Note; NOTES: [facility] Imaging Services [address] [place] [address] CTA Chest W/WO Contrast MR#: [id number] Acct: [id number] Name: IFEOMA ASHRAF Rep #: : 1965 F 53 From: Ziggy Santos MD PCP: Sangeetha Irvin DO Status: REG CLI Study: CTA Chest W/WO Contrast Date of Exam: 09/04/18 Exam# [id number] Ordering Dr: Sangeetha Irvin DO STUDY: CTA [...] Service support , CC: Sangeetha Irvin DO Feed Handler: Signed 14-Jul-2018 Chest PA and Lateral Result: Comments: See Note; NOTES: [facility] Imaging Services [address] [place] [address] Chest PA and Lateral MR#: [id number] Acct: [id number] Name: IFEOMA ASHRAF Rep #: [id number] : 1965 F 53 From: Dimitris Valderrama DO PCP: Sangeetha Irvin DO Status: REG CLI Study: Chest PA and Lateral Date of Exam: 07/14/18 Exam# [id number] Ordering Dr: Oscar Todd VISUAL EFFECTS ARTIST-C STUDY: X-RAY CHEST REASON FOR EXAM: Female, [...] Dimitris Valderrama DO at 8:47 EDT Tel [phone], Service support , CC: NUNU Todd; Sangeetha Irvin DO Feed Handler: Signed 10-Jun-2018 Pacemaker Check Result: Comments: See Note; NOTES: [facility] [address] [place] [address] Pacemaker Check Date of Service: 06/09/18 0909 MR#: [id number] Acct: [id number] Name: IFEOMA ASHRAF Rep #: [id number] : 1965 From: Danica Pickering Age/Sex: 53/F Location: [facility] Status: Signed Billing Codes ICD Device Billing: ICD Dev Prog Eval, Single 06/09/18 0913 <Elec tronically signed by Danica Pickering > Date Danica Pickering 06/10/18 1406<Electronically signed by Boone Ch MD> Mahnazignluana Signat ure: Date (if applicable) Boone Ch MD CC: 08-Jun-2018 Cardiology Visit Report Result: Comments: See Note; NOTES: [facility] [address] [place] [address] OFFICE VISIT Date of Service: 05/31/18 MR#: [id number] Acct: [id number] Name: IFEOMA ASHRAF Rep #: [id number] : 1965 Provider: NUNU Todd Age/Sex: 53/F Location: [facility] Status: Signed with Addenda ADDENDUM by NUNU Todd on 06/01/18 at 0746 Addendum entered and electronic ally signed by LUPE Black 06/01/18 07:46: Patient's outside records from [facility] admission from 04/07/2018 to 04/27/2018 were [...] discharged home with requested follow-up with [facility] neurology or local neurolo gist in approximately [...] defibrillator (ICD) Z95.810 Generator change 11/13 @ [facility] Dr. Galdino Shin - LUPE Black Pacemaker [...] prior to saving. Follow Up 6 Months (RUBBER MILL TENDER) 05/31/18 (GIUSEPPE) 06/01/18 0747 <Electronically signed by [...] ral regurgitation and tricuspid regurgitation. [facility] after being found unresponsive in her bathroom. During this hospitalization she was found to have an acute left axillary and left brachial vein DVT and was started on Eliquis. She presented to [facility] emergency department in March 2018 for altered mental status. Her CT scan prior to ER visit showed possible hygroma versus subacute resolving subdural hematoma. She was transferred to [facility] for further evaluation. These records are [...] 05/31/18 Pulse Rate 100 Intake Visit Reasons: [facility] to [place] Allergies amitriptyline Adverse Reaction (Severe, Verified 05/31/18 [...] rter-defibrillator (ICD) Z95.810 Generator change 11/13 @ [facility] LUPE Chapman Pacemaker check in [...] prior to saving. 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 She had [...] stem cell transplant in February 2007 at [facility] with complete remission. She is on observation, [facility] for follow up. - [...] Chronic Code Visit Office Visits / Consults: 94809 OV L3 Est 1325 <Electronically signed by Simeon Gresham MD> Date Smieon Gresham MD Cosigner Signature: Date (if applicable) CC: 26-May-2018 Venous Duplex Upper Extremity Result: Comments: See Note; NOTES: [facility] Cardiovascular Services [address] [place] [address] Venous Duplex US, Unilateral 05/25/18 0903 MR#: [id number] Acct: [id number] Name: IFEOMA SILVA Rep #: [id number] : 1965 53 From: Juanjo Russo MD Attending Dr: Sangeetha Irvin DO Status: REG CLI Ordering Dr: Sangeetha Irvin DO Date: 05/25/18 Location: [facility] Sex: F C Admitted: R mingo For [...] Date Dictated: 05/25/18902 Date Transcribed: 05/26/18 163 Feed Handler: Signed 06-Apr-2018 Chest 1 View (Portable) Result: Comments: See Note; NOTES: [facility] Imaging Services [address] [place] [address] Chest 1 View (Portable) MR#: [id number] Acct: [id number] Name: IFEOMA ASHRAF Rep #: [id number] : 1965 F 53 From: Levy Lucas DO PCP: Sangeetha Irvin DO Status: PRE ER Study: Chest 1 View (Portable) Date of Exam: 04/06/18 Exam# [id number] Ordering Dr: Dejuan Bacon MD STUDY: X-RAY [...] , CC: Sangeetha Irvin DO; Dejuan Bacon Feed Handler: Signed 05-Apr-2018 Brain/Head without Contrast Result: Comments: See Note; NOTES: [facility] Imaging Services [address] [place] [address] Brain/Head without Contrast MR#: [id number] Acct: [id number] Name: IFEOMA ASHRAF Rep # : [id number] : 1965 F 53 From: Levy Lucas DO PCP: Sangeetha Irvin DO Status: REG CLI Study: Brain/Head without Contrast Date of Exam: 04/05/18 Exam# [id number] Ordering Dr: Oscar Bartlett MD STUDY : [...] 14:06 EDT Tel , Service support 1- [phone], N.B. : The above information has been verbally conveyed by Levy Lucas DO to connected , Covering Physician, on 04/05/2018 14:06:03 (ET). CC: Sangeetha Irvin DO; Oscar Bartlett MD Feed Handler: Signed 05-Apr-2018 Brain/Head without Contrast Result: Comments: See Note; NOTES: [facility] Imaging Services [address] [place] [address] Brain/Head without Contrast MR#: [id number] Acct: [id number] Name: IFEOMA ASHRAF Rep # : [id number] : 1965 F 53 From: Levy Lucas DO PCP: Sangeetha Irvin DO Status: REG CLI Study: Brain/Head without Contrast Date of Exam: 04/05/18 Exam# [id number] Ordering Dr: Oscar Bartlett MD STUDY : [...] 14:06 EDT Tel , Service support 1- [phone], N.B. : The above information has been verbally conveyed by Levy Lucas DO to connected , Covering Physician, on 04/05/2018 14:06:03 (ET). CC: Sangeetha Irvin DO; Oscar Bartlett MD Feed Handler: Signed 31-Mar-2018 Cardiology Visit Report Result: Comments: See Note; NOTES: [facility] [address] [place] [address] OFFICE VISIT Date of Service: 03/31/18 MR#: [id number] Acct: [id number] Name: Ifeoma Ashraf Rep #: [id number] : 1965 Provider: Boone Ch MD Age/Sex: 53/F Location: [facility] Status: Signed HPI HPI Chief Complaint: [...] who presented to the emergency department at [facility] on 03/08/2018 aft er being found [...] care unit. She was eventually transferred to [facility]. Her major problem at this time is [...] Lt brachial Intake Visit Reasons: DC to [facility] 03-14 Electronic Page Makeup System Operator Required: No Accompanied by: mother Is patient [...] like to obtain a assistant professor of biochemistry ry profile to be able to appropriately adjust any diuretics. At this juncture it may be prudent to add Lasix 40 mg a day to her current regimen. 2. Presence of implantable cardioverter-defibrillator (I CD) Z95.810 Generator change 11/13 @ [facility] Dr. Ahmadi Plan She does [...] months. 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) Coding Level of Care Code Off vis,est,level [...] Flow Screening Result: Comments: See Note; NOTES: [facility] Cardiovascular Services [address] [place] [address] 11/22/17 0803 MR#: [id number] Acct: [id number] Name: IFEOMA ASHRAF Rep #: [id number] [...] Date Dictated: 11/22/17 0803 Date Transcribed: 11/22/171517 Feed Handler: Signed 18-Nov-2017 Office Visit Report Result: Comments: See Note; NOTES: [place] [address] [address] OFFICE VISIT Date of Service: 11/17/17 MR#: [id number] Acct: [id number] Patient: IFEOMA ASHRAF Rep #: [id number] : 1965 Provider: Danica Pickering Age/Sex: 52/F [...] n office Interview Reason: scheduled follow up Psych Rn: [facility] Name: Lna Mckeon VR Model: [id number] Serial #: [id number] Implant Date: 11/10/17 Year(s): 0 Implant Physician: [...] and No drainage Bibiana ds Lead #1 Psych Rn Lead 1: [facility] Model Lead 1: 7121Q/58 Serial# Lead 1: [id number] Date Implanted Lead 1: 10/10/09 Position Lead [...] Operative Report Result: Comments: See Note; NOTES: [facility] Medical Records Department [address] [place] [address] Operative Report 11/10/17 1148 MR#: [id number] Acct: [id number] Name: SALOME ASHRAF Rep #: [id number] : 1965 52 From: Lior Ahmadi MD PCP: Sangeetha Irvin DO Status: REG WIC Y Location: [facility] Operative Report Date of Procedure: 11/10/17 Preoperative diagnosis is device at end of life for normal battery depletion. Postoperative diagnosis same as above. After informed consent and IV antibiotics the patient was brought to the [facility] and the ski n over [...] chart documents provided by the device company wine sales representative procedure summary. 11/10/17 1150 <Electronically signed by Lior Ahmadi MD > Date Lior Ahmadi MD CC: Sangeetha Irvin DO; Lior Ahmadi MD Signed 03-Nov-2017 Office Visit Report Result: Comments: See Note; NOTES: [facility] Services [address] [place] [address] OFFICE VISIT Date of Service: 11/03/17 MR#: [id number] Acct: [id number] Patient: IFEOMA ASHRAF Rep #: [id number] : 1965 Provider: Danica Pickering Age/Sex: 52/F Location: [facility] Status: Signed Comments Summary Comments: Written [...] in office Interview Reason: routine follow up Psych Rn: [facility] Name: Current VR Model: 1211-36Q ICD Serial #: [id number] Implant Date: 10/10/09 Year(s): 8 Implant Physician: [...] Model Lead 1: 7121Q/58 Serial# Lead 1: [id number] Date Implanted Lead 1: 10/10/09 Position Lead [...] I43 11/03/17 1251 <Electronically signed by Danica iPckering > Date Danica Pickering 11/03/17 1648<Electronically signed by Boone Ch MD> Mahnazign Signature: Date (if applicable) Boone Ch MD CC: 03-Nov-2017 Cardiology Visit Report Result: Comments: See Note; NOTES: [facility] [address] [place] [address] OFFICE VISIT Date of Service: 11/03/17 MR#: [id number] Acct: [id number] Name: IFEOMA ASHRAF Rep #: [id number] : 1965 Provider: Boone Ch MD Age/Sex: 52/F Location: [facility] Status: Signed HPI HPI Details: IFEOMA [...] 25 to 29 (25% per echo 03/11/2015) [facility] Medical History Type 2 diabetes [...] of automatic cardioverter/defibrillator (AICD) Z95.810 10/06/2009 @ [facility] Plan She is status post ICD [...] at the [facility]. She is also on spironolactone and sh [...] and Lateral Result: Comments: See Note; NOTES: [facility] Imaging Services [address] [place] [address] Chest PA and Lateral MR#: [id number] Acct: [id number] Name: IFEOMA ASHRAF Rep #: [id number] : 1965 F 52 From: Dimitris Valderrama DO PCP: Sangeetha Irvin DO Status: PRE [facility] Study: Chest PA and Lateral Date of Exam: 11/03/17 Exam# [id number] Ordering Dr: Boone Ch MD STUDY: X-RAY [...] Dimitris Valderrama DO at 18:21 EST Tel [phone], Se rvice support , CC: Boone Ch MD; Sangeetha Irvin DO Feed Handler: Signed 14-Oct-2017 Office Visit Report Result: Comments: See Note; NOTES: [facility] Services [address] [place] [address] [place] [address] OFFICE VISIT Date of Service: 10/12/17 MR#: [id number] Acct: [id number] Patient: IFEOMA ASHRAF Rep #: [id number] : 1965 Provider: Danica Pickering Age/Sex: 52/F Location: [facility] Status: Signed Comments Summary Comments: Single Chamber ICD Evaluation: Interrogation shows No VT/VF episodes since . No Alerts noted. Left pectoral pocket/incision w/o s/s of infection or erosion. Pt offers no cardiac complaints. Presenting rhythm shows Sinus Tachycardia @ 105 bpm. Left pectoral pocket/incision w/o s/s of infection or erosion. 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 Battery longevity approx 2.9 mos. At device check in June device showed longevity of 14 mos. D/T longevity decreasing quickly pt scheduled for ICD generator el gilliam with Dr. Ahmadi on 11/10/17 @ [facility]. Lead impedances, sensing and pace/sense threshold remain stable. No parameter changes made. Counters cleared. Pt scheduled for o.v and teaching on 11/03/17 and ICD g enerator change on 11/10/17. Device Device Date Interviewed: 10/12/17 Follow- up Location: in office Interview Reason: routine follow up Psych Rn: 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 Model Lead 1: 7121Q/58 Serial# Lead 1: [id number] Date Implanted Lead 1: 10/10/09 Position Lead [...] IV Contrast Result: Comments: See Note; NOTES: [facility] Imaging Services [address] [place] [address] Abdomen WITH IV Contrast MR#: [id number] Acct: [id number] Name: IFEOMA ASHRAF Rep #: [id number] : 1965 F 52 From: Carl Vincent MD PCP: Sangeetha Irvin DO Status: REG CLI Study: Abdomen WITH IV Contrast Date of Exam: 06/15/17 Exam# [id number] Ordering Dr: Analisa Conway MD STUDY: CT [...] CC: Analisa Conway MD; Sangeetha Irvin DO Feed Handler: Signed 15-Jun-2017 Spine Cervical without Contras Result: Comments: See Note; NOTES: [facility] Imaging Services [address] [place] [address] Spine Cervical without Contras MR#: [id number] Acct: [id number] Name: MALULUANAIFEOMA p #: [id number] : 1965 F 52 From: Zev Mandujano MD PCP: Sangeetha Irvin DO Status: REG CLI Study: Spine Cervical without Contras Date of Exam: 06/15/17 Exam# [id number] Ordering Dr: Analisa Conway MD STUDY: CT [...] techniques were used for this CT. [facility]. FINDINGS: Normal craniovertebral junction. Normal [...] CC: Analisa Conway MD; Sangeetha Irvin DO Feed Handler: Signed 10-Feb-2017 Spine Lumbar without Contrast Result: Comments: See Note; NOTES: [facility] Imaging Services [facility] [place] [address] Verdana 4d Spine Lumbar without Contrast MR#: [id number] Acct: [id number] Name: MARISEL ASHRAF Rep #: [id number] : 1965 F 51 From: Brian Gill MD PCP: Fast DO,Sangeetha Status: REG CLI Study: Spine Lumbar without Contrast Date of Exam: 02/10/17 Exam# [id number] Ordering Dr: Analisa Carr i, MD STUDY: [...] CC: Analisa Conway MD; Sangeetha Irvin DO Feed Handler: Signed 20-Jan-2017 Liver Result: Comments: See Note; NOTES: [facility] Imaging Services [address] [place] [address] Verdana 4d Liver MR#: [id number] Acct: [id number] Name: IFEOMA ASHRAF Rep #: [id number] : 1965 F 51 From: Vincent Bui DO PCP: Sangeetha Irvin DO Status: REG CLI Study: Liver Date of Exam: 01/20/17 Exam# [id number] Ordering Dr: Sangeetha Irvin DO STUDY: ABDOMINAL [...] Vincent Bui DO at 23:43 EDT Tel [phone], Service support , CC: Sangeetha Irvin DO Feed Handler: Signed 20-Jan-2017 Thyroid Result: Comments: See Note; NOTES: [facility] Imaging Services [address] [place] [address] Verdana 4d Thyroid MR#: [id number] Acct: [id number] Name: IFEOMA ASHRAF Rep #: [id number] : 1965 F 51 From: Jin Rolon PCP: Sangeetha Irvin DO Status: REG CLI Study: Thyroid Date of Exam: 01/20/17 Exam# [id number] Ordering Dr: Sangeetha Irvin DO STUDY: THYROID [...] Service support , CC: Sangeetha Irvin DO Feed Handler: Signed 17-Nov-2016 Dexa Bone Density Study (HP) Result: Comments: See Note; NOTES: [facility] Imaging Services [address] [place] [address] Verdana 4d Dexa Bone Density Study (HP) MR#: [id number] Acct: [id number] Name: COL HARPAL ASHRAF Rep #: [id number] : 1965 F 51 From: Prashant Delgadillo MD PCP: Sangeetha Irvin DO Status: REG CLI Study: Dexa Bone Density Study (HP) Date of Exam: 11/17/16 Exam# [id number] Ordering Dr: Sangeetha Irvin DO STUDY: DUAL [...] Prashant Delgadillo MD at 10:52 EST Tel [phone], Service support [phone], CC: Sangeetha Irvin DO Feed Handler: Signed 17-Nov-2016 SCREENING MAMM (CAD), BILAT Result: Comments: See Note; NOTES: [facility] Imaging Services [address] [place] [address] Verdana 4d SCREENING MAMM (CAD), BILAT MR#: [id number] Acct: [id number] Name: SALOME ASHRAF Rep #: [id number] : 1965 F 51 From: Prashant Delgadillo MD PCP: Fast DO,Sangeetha Status: REG CLI Study: SCREENING MAMM (CAD), BILAT Date of Exam: 11/17/16 Exam# [id number] Ordering Dr: Gary Irvin DO MAMMOGRAPHY - [...] biopsy of a clinically suspiciou s abnormality. [id number] Electronically Signed: Prashant Delgadillo MD at 12:55 EST Tel [phone], Service support [phone], CC: Sangeetha Irvin DO Feed Handler: Signed 17-Nov-2016 SCREENING MAMM (CAD), BILAT Result: Comments: See Note; NOTES: [facility] Imaging Services [address] [place] [address] Verdana 4d SCREENING MAMM (CAD), BILAT MR#: [id number] Acct: [id number] Name: SALOME ASHRAF Rep #: [id number] : 1965 F 51 From: Prashant Delgadillo MD PCP: Sangeetha Irvin DO Status: REG CLI Study: SCREENING MAMM (CAD), BILAT Date of Exam: 11/17/16 Exam# [id number] Ordering Dr: Gary Irvin DO ADDENDUM by [...] delay biopsy of a clinically suspicious abnormality. [id number] Electronically Signed: Prashant Delgadillo MD at 13:07 EST Tel [phone], Service support [phone], 11/17/16 1315 Date cc: Sangeetha Irvin DO [...] delay biopsy of a clinically suspicious abnormality. [id number] Electronically Signed: Prashant Delgadillo MD at 12:55 EST Tel [phone], Ser vice support [phone], CC: Sangeetha Irvin DO Feed Handler: Signed 19-Dec-2015 Liver Result: Comments: See Note; NOTES: [facility] Imaging Services [address] [place] [address] Verdana 4d Liver MR#: [id number] Acct: [id number] Name: IFEOMA ASHRAF Rep #: [id number] : 1965 F 50 From: Ziggy Santos MD PCP: Sangeetha Irvin DO Status: REG CLI Study: Liver Date of Exam: 12/19/15 Exam# [id number] Ordering Dr: Sangeetha Irvin DO STUDY: ABDOMINAL [...] at 10:55 EDT Tel , Service support [phone], CC: Sangeetha Irvin DO Feed Handler: Signed 19-Dec-2015 Thyroid Result: Comments: See Note; NOTES: [facility] Imaging Services [address] [place] [address] Verdana 4d Thyroid MR#: [id number] Acct: [id number] Name: MARIOWAQASIFEOMA ep #: [id number] : 1965 F 50 From: Ziggy Santos MD PCP: Sangeetha Irvin DO Status: REG CLI Study: Thyroid Date of Exam: 12/19/15 Exam# [id number] Ordering Dr: Sangeetha Irvin DO STUDY: THYROID [...] at 10:56 EDT Tel , Service support [phone], CC: Sangeetha Irvin DO Feed Handler: Signed 14-Aug-2015 Bilat Scrn Digital AND CAD Result: Comments: See Note; NOTES: [facility] Imaging Services [address] [place] [address] Verdana 4d Bilat Scrn Digital AND CAD MR#: [id number] Acct: [id number] Name: IFEOMA ASHRAF Rep #: [id number] : 1965 F 50 From: Prashant Delgadillo MD PCP: Sangeetha Irvin DO Status: REG CLI Study: Bilat Scrn Digital AND CAD Date of Exam: 08/14/15 Exam# [id number] Order ing Dr: Sangeetha Irvin DO MAMMOGRAPHY [...] Prashant Delgadillo MD at 10:49 EST Tel [phone], Service support [phone], CC: Sangeetha Irvin DO Feed Handler: Signed 10-Mar-2015 Emergency Department Summary Result: Comments: See Note; NOTES: [facility] [facility] Medical Records Department [address] [place] [address] Emergency Department Summary MR#: [id number] Acct: [id number] Name: IFEOMA RASMUSSEN Rep #: [id number] : 1965 49 From: Mayito Roldan DO PCP: Sangeetha Irvin DO Status: [facility] ER DATE OF SERVICE: 02/28/2015 [...] way. Mayito Roldan DO T: NTS JOB: [id number] 03/10/15 2329 <Electronically signed by Mayito Roldan DO> Date Mayito Roldan DO CC: Sangeetha Irvin DO Date Dictated: 02/28/15824 Date Transcribed: 02/28/15824 Feed Handler: Signed 02-Mar-2015 Emergency Department Summary Result: Comments: See Note; NOTES: [facility] Medical Records Department [address] [place] [address] Emergency Department Summary MR#: [id number] Acct: [id number] Name: IFEOMA RASMUSSEN Rep #: [id number] : 1965 49 From: Alejandro Lopez DO PCP: Sangeetha Irvin DO Status: [facility] ER DATE OF SERVICE: 02/28/2015 [...] patient has plans to go to [facility] on [facility]. I will give her local surgeon's name if she wants to speak with them or she can certainly also speak with Dr. Irvin. CLINICAL IMPRESSION: Biliary colic. Alejandro Lopez DO T: ROCK JOB: [id number] 03/02/15 0743 <Electronically signed by Alejandro Lopez DO> Date Alejandro Lopez DO CC: Sangeetha Irvin DO Date Dictated: 718 Date Transcribed: 02/28/15718 Feed Handler: Signed 28-Feb-2015 Discharge Instruction Result: Comments: See Note; NOTES: [facility] Medical Records Department [address] [place] [address] Discharge Instruction 02/28/15 0639 MR#: [id number] Acct: [id number] Name: IFEOMA ASHRAF Rep #: [id number] : 1965 49 From: Alejandro Lopez DO [...] problems, contact your doctor. Call [facility] ([phone]) or report to the closest Em ergency Room. Call 911 if necessary. 02/28/15 0640 <Electronically signed by Alejandro Lopez DO> Date Alejandro Lopez DO Cosign er Signature (If Indicated): Date CC: Sangeetha Irvin DO 28-Feb-2015 Gallbladder Result: Comments: See Note; NOTES: [facility] Imaging Services [address] [address] Ultrasound Report MR#: [id number] Acct: [id number] Name: IFEOMA ASHRAF Rep #: [id number] : 1965 F 49 From: Prashant Delgadillo MD PCP: Sangeetha Irvin DO Status: REG ER Study: Gallbladder Date of Exam: 02/28/15 Exam# [id number] Ordering Dr: Alejandro Lopez DO STUDY: ABDOM [...] Prashant Delgadillo MD at 8:15 EDT Tel [phone], Service support [phone], CC: Alejandro Lopez DO; Sangeetha Irvin DO Feed Handler: Signed 11-Feb-2015 Spine Cervical without Contras Result: Comments: See Note; NOTES: [facility] Imaging Services [address] [place] [address] CAT Scan Report MR#: [id number] Acct: [id number] Name: IFEOMA ASHRAF Rep #: [id number] : 1965 F 49 From: Prashant Delgadillo MD PCP: Sangeetha Irvin DO Status: REG CLI Study: Spine Cervical without Contras Date of Exam: 02/11/15 Exam# [id number] Ordering Dr: Analisa Conway MD STUDY: CT [...] Prashant Delgadillo MD at 9:49 EDT Tel [phone], Service support [phone], CC: Analisa Conway MD; Sangeetha Irvin DO Feed Handler: Signed 18-Jul-2014 Bilat Scrn Digital & CAD Result: Comments: See Note; NOTES: [facility] Imaging Services [address] [place] [address] Breast Imaging Report MR#: [id number] Acct: [id number] Name: IFEOMA ASHRAF Rep # : [id number] : 1965 F 49 From: Prashant Delgadillo MD PCP: Sangeetha Irvin DO Status: REG CLI Exam# [id number] Ordering Dr: Sangeetha Irvin DO MAMMOGRAPHY - [...] Prashant Delgadillo MD at 8:36 EDT Tel [phone], Servi ce support [phone], CC: Sangeetha Irvin DO Feed Handler: Signed 18-Jul-2014 Liver Result: Comments: See Note; NOTES: [facility] Imaging Services [address] [place] [address] Ultrasound Report MR#: [id number] Acct: [id number] Name: IFEOMA ASHRAF Rep #: : 1965 F 49 From: Prashant Delgadillo MD PCP: Sangeetha Irvin DO Status: REG CLI Study: Liver Date of Exam: 07/18/14 Exam# [id number] Ordering Dr: Sangeetha Irvin DO STUDY: ABDOMINAL [...] Prashant Delgadillo MD at 9:34 EDT Tel [phone], Service support [phone], CC: Sangeetha Irvin DO Feed Handler: Signed 18-Jul-2014 Thyroid Result: Comments: See Note; NOTES: [facility] Imaging Services [address] [place] [address] Ultrasound Report MR#: [id number] Acct: [id number] Name: MALULUANAIFEOMA Rep #: [id number] : 1965 F 49 From: Prashant Delgadillo MD PCP: Sangeetha Irvin DO Status: REG CLI Study: Thyroid Date of Exam: 07/18/14 Exam# [id number] Ordering Dr: Sangeetha Irvin DO STUDY: THYROID [...] Delgadillo MD at 8:41 EDT T el [phone], Service support [phone], CC: Sangeetha Irvin DO Feed Handler: Signed 05-Feb-2014 Brain/Head W/WO Contrast Result: Comments: See Note; NOTES: [facility] Imaging Services [address] [place], [place] [address] [place] [address] CAT Scan Report MR#: [id number] Acct: [id number] Name: IFEOMA ASHRAF Rep #: [id number] : 1965 F 48 From: Prashant Delgadillo MD PCP: Sangeetha Irvin DO Status: REG CLI Study: Brain/Head W/WO Contrast Date of Exam: 02/05/14 Exam# [id number] Ordering Dr: Sangeetha Irvin DO STUD Y: [...] Prashant Delgadillo MD at 9:19 EDT Tel [phone], Service support [phone], CC: Sangeetha Irvin DO Feed Handler: Signed Immunization Name Dates Details Influenza (3 years and up) on: 10-Jul-2008 Comments: injection given in left deltoid, pt tolerated welllot # [id number] Influenza (3 years and up) on: 09-Jul-2009 Comments: Lot #[id number]-right deltoidDose0.5mlgiven by Juventino Nye LPN Family History [...] Value Details :59 BNP,B-Type NATRIURETIC PEPTIDE Comments: [facility] [address]pimm[address] [facility] [address] [place], [place], [address] B-TYPE JACKIE PEP 819.3 pg/mL (Abnormal) Range: 0-100 :59 CBC W/Diff, Automated Comments: [facility] [address] [place], [place], [address] Absolute Lymph 1.08 {X10_3/ul} (Normal) Range: 0.83-4.51 [...] 4.2-5.4 WBC 7.5 K/mm3 (Normal) Range: 4.4-11.0 70-Wlx-647261:59 Comprehensive Metabolic Profil Comments: 'TROP' Serial specimen #1, #2, #3, or #4: [address] [place] [address] [address] [place], [place], [address] GAP 8 (Normal) Range: 5-15 CO2 29.0 [...] A.D.A. criteria.Please note revised GLUCOSE reference range sdoimihmr52/02/2018. 62-Wsx-863315:59 CPK Total, Creatine Kinase Comments: 'TROP' Serial specimen #1, #2, #3, or #4: [address] [place] [address] [place], [address] CPK TOTAL 30 U/L (Normal) Range: 26-192 00-Vnq-180061:59 D-Dimer Quantitative (DVT/PE) Comments: [facility] [address] [place], [address] D-DIMER QUANT 1.44 {FEU/ug/m} (Abnormal) Range: 0.27-0.49 Comments: CRITICAL VALUE VERIFIED. CALLED TO LCWUAJGH24/10/18 1440 Francois Quinn.RESULTS READ BACK BY SAME .D-Dimer ELEVATED (>0.49): Additional studies and clinicalassessments are indicated to conclude di agnosis of:Deep Vein Thrombosis (DVT) or Pulmonary Embolism (PE) 46-Pco-638337:59 Troponin-I Comments: 'TROP' Serial specimen #1, #2, #3, or #4: [address] [place] [address] [place], [place], [address] TROPONIN-I 0.030 ng/mL (Normal) Comments: TROPONIN-I EXPECTED VALUES <0.045 Negative 0.045 - 0.590 Consistent with Cardiac Damage > OR = 0.600 Critical Value Not every elevated troponin is indicative of [place]. T hesevalues should be used with clinical judgement in examiningthe patient's clinical picture for diagnosis. To establisha diagnosis of AZ versus myocardial injury, there must be ademonstrated rise and/ or fall in the troponin values, inaddition to ischemic symptoms, EKG changes, new regionalwall motion abnormality, and/or angiographical evidence. PLEASE NOTE: REFERENCE RANGES EDITED 02/06/1829-Aug-20189-Tog-198003:44 ANCA Comments: Is Patient Fasting? [facility] (refer to report for specific site)refer to report for address and phone number Atypical pANCA <1:20 {titer} (Normal) Comments: The atypical pANCA pattern has been observed in asignificant percentage of patients with ulcerative colitis,primary sclerosing cholangitis and autoimmune hepatitis.Performed at: [facility] [id number] Director: Omar Hood PhD, Phone: [phone] PERINUCLEAR Ab <1:20 {titer} (Normal) Comments: The [...] only by EIA. Ref. AM J Clin Jjcnid1965;111:507-513. CYTOPLASMIC Ab <1:20 {titer} (Normal) 9-Jru-466523:44 ANTINUCLEAR ANTIBODIES DIRECT Comments: [facility] (refer to report for specific site)refer to report for address and phone number LASHA-DIRECT Negative (Normal) Comments: Performed at: [employer] [facility] [id number] Director: Omar Hood PhD, Phone: [phone] 5-Ygm-080240:44 CPK Total, Creatine Kinase Comments: [facility] [address] [place], [place], [phone] CPK TOTAL 33 U/L (Normal) Range: 26-192 8-Ocb-959500:44 Hemoglobin A1c Comments: [facility] [address] [place], [place], [phone](727) HGB A1C 10.6 % (Abnormal) Range: 4.2-6.3 2-Qnk-410212:44 PRANEETH AND PE, Random UR Comments: Is Patient Fasting? [facility] (refer to report for specific site)refer to report for address and phone number NOTE Comment (Normal) Comments: Protein electrophoresis scan will follow via computer,mail, or pressure supervisor delivery. PRANEETH RESULT,U Comment (Normal) Comments: No monoclonality detected. M-SPIKE,UR% Not Observed % (Normal) GAMMA GLOB,U 5.5 % (Normal) BETA GLOB,U 14.2 % (Normal) PFXMZ-8-EIPV,U 10.8 % (Normal) TVKCE-9-ARIX,U 7.6 % (Normal) ALBUMIN,U 62.0 % (Normal) PROTEIN,UR 27.8 mg/dL (Normal) 1-Aas-427462:44 PRANEETH + Protein Elect, Serum Comments: Is Patient Fasting? [facility] (refer to report for specific site)refer to report for address and phone number NOTE: Comment (Normal) Comments: Protein electrophoresis scan will follow via computer,mail, or pressure supervisor delivery. PRANEETH RESULT,S Comment (Normal) Comments: No monoclonality detected. A/G RATIO 1.2 (Normal) Range: 0.7-1.7 GLOBULIN, TOTAL 2.9 g/dL (Normal) Range: 2.2-3.9 M-SPIKE g/dL (Normal) Comments: Not Observed GAMMA GLOBULIN 0.6 g/dL (Normal) Range: 0.4-1.8 BETA GLOBULIN 1.1 g/dL (Normal) Range: 0.7-1.3 MTUNO-8-CSLM 0.9 g/dL (Normal) Range: 0.4-1.0 FQJFX-2-KIPZ 0.3 g/dL (Normal) Range: 0.0-0.4 ALBUMIN 3.4 g/dL (Normal) Range: 2.9-4.4 IMMUNOGL M 103 mg/dL (Normal) Range: 26-217 IMMUNO A 69 mg/dL (Abnormal) Range: 87-352 IMMUNO G 538 mg/dL (Abnormal) Range: 700-1600 PROTEIN,TOTAL 6.3 g/dL (Normal) Range: 6.0-8.5 7-Kyo-169678:44 Rheumatoid Factor Comments: [facility] [address] [place], [address] RHEUMATOID FAC < 10.0 {IU/mL} (Normal) 2-Djs-721866:44 Sjogren's Antibodies A/B Comments: [facility] (refer to report for specific site)refer to report for address and phone number Anti-SS-B < 0.2 {AI} (Normal) Range: 0.0-0.9 Anti-SS-A < 0.2 {AI} (Normal) Range: 0.0-0.9 :44 Thyroid Stim Hormone (TSH) Comments: [facility] [address] [place], [address] TSH 2.71 {uIU/mL} (Normal) Range: 0.358-3.74 6-Wgk-325348:44 Vitamin B12 1303 pg/mL (Abnormal) Comments: [facility] [address] [place], [address] Range: 211-911 :44 Vitamin D,25 Hydroxy Comments: [facility] [address] [place], [address] Vitamin D 25-OH 62.4 ng/mL (Normal) Range: 29.95-100.01 Comments: Vitamin D 25(OH) Status Range Deficiency <20 ng/mL (50nmol/L) Insuffciency 20 - 30 ng/mL (50 - 75 nmol/L) Sufficiency 30 - 100 ng/mL (75 - 250 nmol/L) Toxicity >100 ng/mL (>250 nmol/L) 5-Jra-487773:06 Basic Metabolic Profile (BMP) Comments: PLEASE FAX TO DR. CANTU [phone] [address] [place], [address] GAP 12 (Normal) Range: 5-15 CO2 26.0 [...] A.D.A. criteria.Please note revised GLUCOSE reference range bjnkmtumx02/02/2018. 87-Gmj-14772:22 CBC W/Diff, Automated Comments: BMP TO DULCE TIMMONS.CBCD, TSH, B12 TO DR. SANGEETHA IRVIN.[facility] [address] [place], [address] Absolute Lymph 1.16 {X10_3/ul} (Normal) Range: 0.83-4.51 [...] pg/mL (Normal) Comments: BMP [facility].CBCD, TSH, B12 TO DR. SANGEETHA IRVIN.[facility] [address] [place], [address] Range: 211-911 32-Dzs-54799:20 Basic Metabolic Profile (BMP) Comments: BMP TO [facility].CBCD, TSH, B12 TO DR. SANGEETHA IRVIN.[facility] [address] [place], [place], [address] GAP 9 (Normal) Range: 5-15 CO2 27.0 [...] A.D.A. criteria.Please note revised GLUCOSE reference range gtndpagbg94/02/2018. 27-Sdc-85174:20 Thyroid Stim Hormone (TSH) Comments: BMP TO [facility].CBCD, TSH, B12 TO DR. SANGEETHA IRVIN.[facility] [address] [place], [place], [address] TSH 4.09 {uIU/mL} (Abnormal) Range: 0.358-3.74 93-Cza-874686:23 Basic Metabolic Profile (BMP) Comments: [facility] [address]bxjff[address] [place], [address] GAP 7 (Normal) Range: 5-15 CO2 30.0 [...] A.D.A. criteria.Please note revised GLUCOSE reference range aqjrxtfnq01/02/2018. 26-Hac-944430:23 BNP,B-Type NATRIURETIC PEPTIDE Comments: [facility] [address]apstackj[address] [place], [address] B-TYPE JACKIE PEP 892.7 pg/mL (Abnormal) Range: 0-100 87-Bqj-342894:23 CBC W/Diff, Automated Comments: [facility] [address]chm[address] [place], [address] Absolute Lymph 1.23 {X10_3/ul} (Normal) Range: 0.83-4.51 [...] 4.2-5.4 WBC 7.2 K/mm3 (Normal) Range: 4.4-11.0 31-Vrq-835077:41 CBC W/Diff, Automated Comments: Reason for Laboratory Test .[facility] [address] [place], [place], [address] Absolute Lymph 0.85 {X10_3/ul} (Normal) Range: 0.83-4.51 [...] 4.2-5.4 WBC 5.7 K/mm3 (Normal) Range: 4.4-11.0 00-Hbb-987351:41 Comprehensive Metabolic Profil Comments: Reason for Laboratory Test .Serial Specimen #1, #2 or #3? [facility] [address]obndmcv[address] [place], [place], [address] GAP 8 (Normal) Range: 5-15 CO2 28.0 [...] A.D.A. criteria.Please note revised GLUCOSE reference range sjwmavgor74/02/2018. 73-Rec-452449:41 LDH 224 U/L (Normal) Comments: Reason for Laboratory Test .Serial Specimen #1, #2 or #3? 1[facility] [address]kkbx[address] [place], [place], [address] Range: 84-246 4-Nlo-586537:41 URINE GENESIS CULTURE-IDENTIFICATN Comments: add to urine in lab; PATIENT NOT FASTINGPERFORMED BY: [facility] Zialay9095 [facility] [id number] Information: SRC:JUAN ([id number]) Result 1 ENTEAE (Abnormal) Comments: Enterobacter aerogenes1,000 [...] S Urine Final report Culture,Comprehensi (Abnormal) ve 94-Cey-26586:46 AFP, Tumor Marker Comments: Is Patient ? [facility] (refer to report for specific site)refer to report for address and phone number AFP TUMOR 2253 10.0 ng/mL (Abnormal) Range: 0.0-8.3 Comments: Khanh ECLIA methodologyPerformed at: CB - [facility] [address]w28[address] [place], [place] [id number] Director: Omar Hood PhD, Phone: [phone] 73-Wwr-26615:46 CBC W/Diff, Automated Comments: [facility] [address] [place], [place], [address] Absolute Lymph 0.95 {X10_3/ul} (Normal) Range: 0.83-4.51 [...] ADD T3F T4F TO BLOOD FROM 05-25-18 [facility] 5 [facility] [address]utymqs[address] [place], [place], [address] GAP 9 (Normal) Range: 5-15 CO2 28.0 [...] A.D.A. criteria.Please note revised GLUCOSE reference range nthjxaxed97/02/2018. :46 Digoxin Level Comments: [facility] [address]uevdtbg[address] [place], [place], [address] DIG 0.71 ng/mL (Abnormal) Range: 0.80-2.00 :46 Free T3 Comments: PLEASE ADD T3F T4F TO BLOOD FROM 05-25-[address] [place], [place], [address] FREE T3 3.2 pg/mL (Normal) Range: 2.18-3.98 :46 Hemoglobin A1c Comments: [facility] [address]sp[address] [place], [place], [address] HGB A1C 5.4 % (Normal) Range: 4.2-6.3 :46 Lipid Profile Comments: PLEASE ADD T3F T4F TO BLOOD FROM 05-25-18 [facility] 5 [facility] [address]au[address] [place], [place], [address] VLDL 22 mg/dL (Normal) Range: 5-40 LDL [...] High Risk :46 Microalb:Creat Ratio,Random UR Comments: [facility] [address]aw[address] [place], [place], [address] MALB:CREAT 7.8 {mg/g_CRE} (Normal) MICROALBUMIN,UR 10.9 mg/L (Normal) UR CREAT 139.00 mg/dL (Normal) :46 T4 Free Direct Comments: PLEASE ADD T3F T4F TO BLOOD FROM 05-25-18G2 5 [facility] [address] [place], [address] T4 FREE DIRECT 1.11 ng/dL (Normal) Range: 0.76-1.46 :46 Thyroid Stim Hormone (TSH) Comments: PLEASE ADD T3F T4F TO BLOOD FROM 05-25-18 THG2 5 [facility] [address]expcm[address] [place], [address] TSH 0.31 {uIU/mL} (Abnormal) Range: 0.358-3.74 :46 Urinalysis, Complete Comments: How was Urine Obtained? CLEAN [facility] I[address]mjyetw[address] [place], [address] MUCUS, URINE 0 SEEN [...] :46 Vitamin B12 368 pg/mL (Normal) Comments: [facility] K[address]cvjqnhux[address] [place], [address] Range: 211-911 :46 Vitamin D,25 Hydroxy Comments: [facility] Cafxokkonz[address] [place], [address] Vitamin D 25-OH 64.5 ng/mL (Normal) Range: 29.95-100.01 Comments: Vitamin D 25(OH) Status Range Deficiency <20 ng/mL (50nmol/L) Insuffciency 20 - 30 ng/mL (50 - 75 nmol/L) Sufficiency 30 - 100 ng/mL (75 - 250 nmol/L) Toxicity >100 ng/mL (>250 nmol/L) 71-Vui-402601:52 Urinalysis, Complete Comments: Order Date: 04/06/18Has pt arrived? YHow was Urine Obtained? [facility] [address]cerurxbf[address] [place], [place], [address] HYALINE CAST 5-10 SEEN {/lpf} (Normal) Range: [...] (Normal) CLARITY Cloudy (Normal) COLOR Yellow (Normal) 87-Tbx-240400:30 CBC W/Diff, Automated Comments: [facility] [address]ms[address] [place], [address] OVALOCYTE RARE (Normal) MACROCYTE 1+ [...] 4.2-5.4 WBC 9.1 K/mm3 (Normal) Range: 4.4-11.0 02-Kon-982711:30 Comprehensive Metabolic Profil Comments: [facility] [address]qlmt[address] [place], [place], [address] GAP 12 (Normal) Range: 5-15 CO2 30.0 [...] Comments: Please note revised GLUCOSE reference range nilrrenrw52/02/2018. 29-Frj-541851:30 Lactic Acid Comments: Yes/No query for Sepsis Lactate Rule [facility] [address]cs[address] [place], [place], [address] LACTIC ACID 6.7 mmol/L (Abnormal) Range: 0.4-2.0 Comments: Critical Result(s) Called Lisa RIVERA at: 20:23: by: BRITTANY TORRES 20-Fdp-114647:30 Partial Thromboplast Time Comments: [facility] [address] [place], [address] PTT 41.3 s (Abnormal) Range: 24.1-36.2 13-Vsq-685101:30 Prothrombin Time w/INR Comments: [place] [address] [facility] [place], [address] INR 2.3 (Normal) PROTIME 25.6 s (Abnormal) Range: 11.7-14.9 25-Rvl-295976:30 Troponin-I Comments: [facility] [address]po[address] [place], [address] TROPONIN-I 0.046 ng/mL (Abnormal) Comments: TROPONIN-I EXPECTED VALUES <0.045 Negative 0.045 - 0.590 Consistent with Cardiac Damage > OR = 0.600 Critical Value Not every elevated troponin is indicative of [place]. T hesevalues should be used with clinical judgement in examiningthe patient's clinical picture for diagnosis. To establisha diagnosis of [place] versus myocardial injury, there must be ademonstrated rise and/ or fall in the troponin values, inaddition to ischemic symptoms, EKG changes, new regionalwall motion abnormality, and/or angiographical evidence. PLEASE NOTE: REFERENCE RANGES EDITED 02/06/1805-Apr-201858-Bep-918283:08 Ammonia Comments: [facility] [address]trp[address] [place], [place], [address] AMMONIA 20.0 umol/L (Normal) Range: 11-32 16-Qdo-323052:08 CBC-Complete Blood Cnt No Diff Comments: [facility] [address] [place], [place], [address] MPV 10.6 fL (Normal) Range: 6.2-12.0 PLT [...] 4.2-5.4 WBC 6.6 K/mm3 (Normal) Range: 4.4-11.0 73-Yld-463770:08 Comprehensive Metabolic Profil Comments: [facility] [address] [place], [place], [address] GAP 9 (Normal) Range: 5-15 CO2 35.0 [...] Comments: Please note revised GLUCOSE reference range anjglrhyt61/02/2018. 19-Kbx-282872:08 Differential Comment Comments: [facility] [address]ktr[address] [place], [place], [address] SMEAR COMMENT COMMENT (Normal) Comments: SLIDE SCANNED - 1+ ANISO NOTED. 80-Ifj-35394:55 Urinalysis, Complete Comments: How was Urine Obtained? [facility] [address]ugsmr[address] [place], [address] AMORPHOUS 2+ (Normal) HYALINE CAST 5-10 SEEN [...] (Normal) :55 Urine Drug Screen (VISTA) Comments: [facility] [address]day[address] [place], [address] TO BE CONFIRMED (Normal) Comments: [...] USE TESTMNEMONIC: UTCA :59 Bedside Glucose Comments: [facility] LaboratoryPoint of Ngzp[address] [place] [address] BEDSIDE GLU 169 mg/dL (Abnormal) Range: 70-110 Comments: MANAGEMENT OF PATIENT CARE PER NURSING PROTOCOL :35 Basic Metabolic Profile (BMP) Comments: [facility] [address] [place], [place], [address] GAP 16 (Abnormal) Range: 5-15 CO2 15.0 mmol/L (Abnormal) Range: 21.0-32.0 CL 104 mmol/L (Normal) Range: 98-107 K 6.2 mmol/L (Abnormal) Range: 3.5-5.1 Comments: Critical Result(s) Called at: 01:06:28 03/08/2018 by:ANSLEY STANFORD,HAT TRIMMER NA 135 mmol/L (Abnormal) Range: 136-145 CA [...] A.D.A. criteria.Please note revised GLUCOSE reference range zmgskfdau05/02/2018. 85-Cae-189812:59 Acetaminophen (Tylenol) Level Comments: [facility] [address] [place], [place], [address] ACETAMINOPHEN 4.9 ug/mL (Abnormal) Range: 10.0-30.0 Comments: Slight Icterus, Result may be falsely decreased. 48-Gzd-140197:59 Acetone Serum Comments: [facility] [address] [place], [address] ACETONE SERUM NEGATIVE (Normal) 97-Ili-050856:59 Alcohol, Blood (Medical)-Serum Comments: [facility] [address] [place], [address] SERUM ETOH 8.0 mg/dL (Normal) Comments: The serum:whole blood ethanol ratio is approximately 1.14and varies slightly with hematocrit.Medical Alcohol reference interval and critical value innon-tolerant individuals; 50 - 100 Impairment 100 Intoxication 100 - 250 Severe Poisoning 250 - 400 Deep/possible fatal coma :59 Digoxin Level Comments: [facility] [address]id[address] [place], [address] DIG 0.32 ng/mL (Abnormal) Range: 0.80-2.00 74-Zyq-239878:59 Lactic Acid Comments: Yes/No query for Sepsis Lactate Rule [place] [address] [place], [address] LACTIC ACID 12.4 mmol/L (Abnormal) Range: 0.4-2.0 Comments: Critical Result(s) Called at: 00:52:58 03/08/2018 by:ANSLEY OWENSHAT TRIMMER [id number] Partial Thromboplast Time Comments: [place] [place], [address] PTT 33.7 s (Normal) Range: 24.1-36.2 :59 Prothrombin Time w/INR Comments: [address] [place], [address] INR 2.4 (Normal) PROTIME 26.4 s (Abnormal) Range: 11.7-14.9 :59 Salicylate Comments: [address] [place], [address] SALICYLATE < 1.7 mg/dL (Abnormal) Range: 2.8-20.0 Comments: Slight Icterus, Result may be falsely decreased. :02 Blood Gases by [facility] Comments: [facility] [id number] [place] [address] SO2 ISTAT 99 [...] Radial (Normal) BLD GAS TYPE ART (Normal) [id number] Bedside Glucose Comments: [facility] [id number] [place] [address] BEDSIDE GLU 214 mg/dL (Abnormal) Range: 70-110 Comments: MANAGEMENT OF PATIENT CARE PER NURSING PROTOCOL [id number] Basic Metabolic Profile (BMP) Comments: [facility] [id number] [place], [address] GAP 19 (Abnormal) Range: 5-15 [...] A.D.A. criteria.Please note revised GLUCOSE reference range ampyacsar76/02/2018. 55-Pwr-[id number]:37 CBC W/Diff, Automated Comments: [facility] Vbqcvtrksd[address] [place], [place], [address] CRENATED RBC 1+ (Normal) ANISO 1+ (Normal) [...] 4.2-5.4 WBC 5.5 K/mm3 (Normal) Range: 4.4-11.0 92-Uqn-121679:37 Lipase Comments: [facility] Jcepcuawxw1874 [address] [place], [address] LIPASE 86 U/L (Normal) Range: 73-393 85-Ekn-732635:37 Liver Profile Comments: [facility] [address] [place], [address] D BILI 1.07 mg/dL (Abnormal) Range: 0.00-0.30 T BILI 2.40 mg/dL (Abnormal) Range: 0.20-1.00 ALT 120 U/L (Abnormal) Range: 13-56 ALK P 94 U/L (Normal) Range: 45-117 AST 149 U/L (Abnormal) Range: 15-37 Comments: Moderate Hemolysis, Result may be falsely increased. GLOB 2.9 g/dL (Normal) Range: 2.2-4.2 ALB 3.0 g/dL (Abnormal) Range: 3.2-5.0 T PROT 5.9 g/dL (Abnormal) Range: 6.4-8.2 45-Dzq-847418:37 Magnesium Comments: [facility] [address] [place], [address] MG 2.0 mg/dL (Normal) Range: 1.6-2.6 Comments: Moderate Hemolysis, Result may be falsely increased. 57-Wzw-575053:37 Troponin-I Comments: [facility] [address] [place], [place], [address] TROPONIN-I 0.081 ng/mL (Abnormal) Comments: TROPONIN-I EXPECTED VALUES <0.045 Negative 0.045 - 0.590 Consistent with Cardiac Damage > OR = 0.600 Critical Value Not every elevated troponin is indicative of [place]. T hesevalues should be used with clinical judgement in examiningthe patient's clinical picture for diagnosis. To establisha diagnosis of AZ versus myocardial injury, there must be ademonstrated rise and/ or fall in the troponin values, inaddition to ischemic symptoms, EKG changes, new regionalwall motion abnormality, and/or angiographical evidence. PLEASE NOTE: REFERENCE RANGES EDITED 02/06/1824-Feb-20180-Ewe-385547:21 CMV ANTIBODY (06181) Comments: today; PATIENT NOT FASTINGPERFORMED BY: [facility] CenterRgelir5013 [facility] [id number] Cytomegalovirus (CMV) Ab, IgG <0.60 U/mL (Normal) Range: 0.00-0.59 Comments: Negative <0.60 Equivocal 0.60 - 0.69 Positive >0.69 0-Zqv-454597:21 HEPATITIS PANEL (44375) Comments: today; PATIENT NOT FASTINGPERFORMED BY: [facility]6370 [facility] [id number] Hep C Virus Ab <0.1 {s/co_ratio} (Normal) Range: 0.0-0.9 Comments: Negative: < 0.8 Indeterminate: 0.8 - 0.9 Positive: > 0.9 . The CDC recommends that a positive HCV antibody result be followed up with a HCV Nucleic Acid Amplification test (745850). Hep B Core Ab, IgM Negative (Normal) HBsAg Screen Negative (Normal) Hep A Ab, IgM Negative (Normal) 3-Dev-648383:21 EBV Panel (70564) Comments: today; PATIENT NOT FASTINGPERFORMED BY: [facility]6370 [facility] [id number] Interpretation: SPRCS (Normal) Comments: EBV Interpretation Chart [...] <36.0 Equivocal 36.0 - 43.9 Positive >43.9 89-Rhy-544896:19 CBC W/Diff, Automated Comments: Order Date: 02/23/18Order Info: 0184-1 - CBCDOrder Info: 17802-4 - [facility] Qcvxdbexog1617 [address] [place], [place], [address] MACROCYTE 1+ (Normal) ANISO RARE (Normal) Absolute [...] 4.2-5.4 WBC 6.9 K/mm3 (Normal) Range: 4.4-11.0 21-Cnm-469250:19 Comprehensive Metabolic Profil Comments: Order Date: 02/23/18Order Info: 0786-1 - CMPOrder Info: 1798-8 - AMYOrder Info: 3040-3 - [facility] Cbvgxktkmt8889 [address] [place], [address] GAP 11 (Normal) Range: 5-15 CO2 25.0 [...] A.D.A. criteria.Please note revised GLUCOSE reference range gaqssnswn71/02/2018. 39-Xut-053184:19 Erythrocyte Sed Rate Comments: Order Date: 02/23/18Order Info: 0184-1 - CBCDOrder Info: 30047-3 - [facility]Ohio[facility] Tquokaqevg[address] [place], [address] SED RATE 16 mm/h (Normal) Range: 0-30 95-Wnz-748842:19 Lipase (71664) Comments: Order Date: 02/23/18Order Info: 0786- 1 - CMPOrder Info: 1798-8 - AMYOrder Info: 3040-3 - [facility]uscar[facility] Cgcxarztmc0971 [address] [place], [address] LIPASE 92 U/L (Normal) Range: 73-393 46-Bno-544239:19 Amylase (57246) Comments: Order Date: 02/23/18Order Info: 0786- 1 - CMPOrder Info: 1798-8 - AMYOrder Info: 3040-3 - [facility]ETuscar[facility] Bxikpkwmjw7954 [address] [place], [address] ARIAN 27 U/L (Normal) Range: 25-115 0-Upa-623167:15 Amylase Comments: CMP, CBCD IS FOR DR ORONA IS FOR [facility] Rwhkcdwqxc4593 [place], [address] ARIAN 29 U/L (Normal) Range: 25-115 9-Pfm-762876:15 CBC W/Diff, Automated Comments: CMP, CBCD IS FOR DR ORONA IS FOR [facility] Dzvpynfoxy9984 [place], [address] ANISO 1+ (Normal) Absolute Lymph 0.41 {X10_3/ul} [...] 4.2-5.4 WBC 5.3 K/mm3 (Normal) Range: 4.4-11.0 6-Can-504996:15 Comprehensive Metabolic Profil Comments: CMP, CBCD IS FOR DR COLÓNT IS FOR [facility] Htusxlvewe6177 [facility] [place], [place], [address] GAP 9 (Normal) Range: 5-15 CO2 27.0 [...] A.D.A. criteria.Please note revised GLUCOSE reference range ufcayirwg62/02/2018. 6-Koe-893976:15 Digoxin Level Comments: CMP, CBCD IS FOR DR ORONA IS FOR [facility] Xfqhiyoqgw[address] [place], [place], [address] DIG 0.92 ng/mL (Normal) Range: 0.80-2.00 4-Mvj-957292:15 Lipase Comments: [facility], CBCD IS FOR DR ORONA IS FOR [facility] Ewahtnvuzi[address] [place], [place], [address] LIPASE 101 U/L (Normal) Range: 73-393 6-Ada-887012:15 Lipid Profile Comments: [facility], CBCD IS FOR DR ORONA IS FOR [facility] Zwhznotodz14[address] [place], [place], [address] VLDL 15 mg/dL (Normal) Range: 5-40 LDL [...] 200-240 mg/dL Borderline >240 mg/dL High Risk 4-Ykq-374391:15 Magnesium Comments: CMP, CBCD IS FOR DR ORONA IS FOR [facility] [address]mzcoqwkcp[address] [place], [address] MG 1.8 mg/dL (Normal) Range: 1.6-2.6 7-Ftl-172230:15 Microalb:Creat Ratio,Random UR Comments: CMP, CBCD IS FOR DR ORONA IS FOR [facility] Gucccdcyei[address] [place], [address] MALB:CREAT 34.3 {mg/g_CRE} (Abnormal) MICROALBUMIN,UR 58.6 mg/L (Normal) UR CREAT 171.00 mg/dL (Normal) 7-Hog-423870:15 Thyroid Stim Hormone (TSH) Comments: CMP, CBCD IS FOR DR ORONA IS FOR [facility] Xudqzwdboh9422 [address] [place], [address] TSH 1.84 {uIU/mL} (Normal) Range: 0.358-3.74 6-Kcr-435155:15 Vitamin B12 383 pg/mL (Normal) Comments: CMP, CBCD IS FOR DR ORONA IS FOR [facility] Mnwkdompha5[address] [place], [address] Range: 211-911 4-Fof-178192:15 Vitamin D,25 Hydroxy Comments: CMP, CBCD IS FOR DR ORONA IS FOR [facility] Oysiqbdzhv5739 [address] [place], [address] Vitamin D 25-OH 72.0 ng/mL (Normal) Range: 29.95-100.01 Comments: Vitamin D 25(OH) Status Range Deficiency <20 ng/mL (50nmol/L) Insuffciency 20 - 30 ng/mL (50 - 75 nmol/L) Sufficiency 30 - 100 ng/mL (75 - 250 nmol/L) Toxicity >100 ng/mL (>250 nmol/L) 24-Gyd-117801:14 Blood Glucose , Office (62069) Blood Glucose , Office 137 (Normal) 04-Wgh-504516:14 HgA1C , Office (57753) HgA1C , Office 6.1 % (Normal) Range: 4.6 - 7.1 :35 CBC W/Diff, Automated Comments: [facility] Jnifhxdibs[address] [place], [place], [address] Absolute Lymph 1.30 {X10_3/ul} (Normal) Range: 0.83-4.51 [...] Metabolic Profil Comments: Reason for Laboratory Test [facility] Knaijvywju[address] [place], [address] GAP 8 (Normal) Range: 5-15 CO2 31.0 mmol/L (Normal) Range: 21.0-32.0 CL 99 mmol/L (Normal) Range: 98-107 K 3.4 mmol/L (Abnormal) Range: 3.5-5.1 NA 138 mmol/L (Normal) Range: 136-145 T BILI 0.70 mg/dL (Normal) Range: 0.20-1.00 ALT 27 U/L (Normal) Range: 13-56 Comments: Please note revised ALT reference range ljwvvennm72/28/2018. ALK P 102 U/L (Normal) Range: 45-117 [...] A.D.A. criteria.Please note revised GLUCOSE reference range wpxaidbzp12/02/2018. 65-Lys-89990:33 LDH 198 U/L (Normal) Comments: Reason for Laboratory Test OVSerial Specimen #1, #2 or #3? 1W[facility] [address]emjcxg[address] [place], [address] Range: 84-246 94-Vmg-739147:15 Culture, Urine Comments: [facility] Cwkiipowgx[address] [place], [place], [address] CUUR See Note (Normal) Comments: VERBAL ORDER DR. IRVIN'S OFFICE Urine CultureORGANISM 1: Mixed Gram Positive OrganismsColony Count 11,000-25,000MIX CULTURE Mixed contaminants. Submit a new specimen if indicated. 80-Gjk-858803:11 CBC W/Diff, Automated Comments: [facility] [address]psjryaak[address] [place], [place], [address] Absolute Lymph 1.34 {X10_3/ul} (Normal) Range: 0.83-4.51 [...] 4.2-5.4 WBC 5.4 K/mm3 (Normal) Range: 4.4-11.0 35-Bhf-624519:11 Comprehensive Metabolic Profil Comments: Comments: [facility] Phlrgscaes3708 [place], [address] GAP 7 (Normal) Range: 5-15 CO2 28.0 mmol/L (Normal) Range: 21.0-32.0 CL 100 mmol/L (Normal) Range: 98-107 K 3.9 mmol/L (Normal) Range: 3.5-5.1 NA 135 mmol/L (Abnormal) Range: 136-145 T BILI 0.70 mg/dL (Normal) Range: 0.20-1.00 ALT 31 U/L (Normal) Range: 13-56 Comments: Please note revised ALT reference range zeeoolhee95/28/2018. ALK P 110 U/L (Normal) Range: 45-117 [...] A.D.A. criteria.Please note revised GLUCOSE reference range thaxfesdk77/02/2018. 99-Adf-315097:10 Urinalysis, Complete Comments: ORDERED UACDR.JACINDA ORDERED CMP AND CBCDComments: clean catchComments: clean catchHow was Urine Obtained? FORESTRY CONSERVATION WORKER TO SPECIFYTuscarawas Hospital [address]utnsow[address] [place], [address] MUCUS, URINE RARE [...] (Normal) CLARITY Cloudy (Normal) COLOR Yellow (Normal) 9-Awv-256155:42 ,Serum,hCG Quali. Comments: Comments: use blood in [facility] Hhtyoiagxc6[address] [place], [address] HCGSQUAL NEGATIVE {Negative} (Normal) Range: 0-9 Nonpreg HCG Qual triggr 2 m[iU]/mL (Normal) 0-Pol-532980:41 Basic Metabolic Profile (BMP) Comments: [facility] Flicbtzgdt[address] [place], [address] GAP 10 (Normal) Range: 5-15 [...] A.D.A. criteria.Please note revised GLUCOSE reference range sourduixc72/02/2018. 7-Fmr-897834:41 CBC-Complete Blood Cnt No Diff Comments: [facility] [address] [place], [place], [address] MPV 9.6 fL (Normal) Range: 6.2-12.0 PLT [...] 4.2-5.4 WBC 8.7 K/mm3 (Normal) Range: 4.4-11.0 1-Spj-135742:41 Prothrombin Time w/INR Comments: [facility] [address] [place], [place], [address] INR 1.0 (Normal) PROTIME 12.9 s (Normal) Range: 11.7-14.9 03-Nov-20179:00 Culture, Urine Comments: [facility] Bassvzyxqr2970 [facility]. [place], [place], [address] CUUR See Note (Normal) Comments: Urine CultureORGANISM [...] &lt ;=20 S(NF) indicates non-formulary drug at [facility]. Approval by Infectious Disease Specialist required before non- formulary drugs may be ordered and/or dispensed. :27 AFP, Tumor Marker Comments: Is Patient ? NPatient's Weight (LBS.): 124Number of Fetuses: 0[facility] (refer to report for specific site)refer to report for address and phone number AFP TUMOR 2253 6.8 ng/mL (Normal) Range: 0.0-8.3 Comments: Orecon ECLIA methodologyPerformed at: [facility] [address] [id number] Director: Omar Hood PhD, Phone: [phone] :[phone] CBC W/Diff, Automated Comments: [facility] [address]jnjnlbut[address] [place], [place], [address] Absolute Lymph 1.47 {X10_3/ul} (Normal) Range: 0.83-4.51 [...] 4.2-5.4 WBC 6.0 K/mm3 (Normal) Range: 4.4-11.0 89-Hkf-42084:27 Comprehensive Metabolic Profil Comments: [facility] Ttiqgygdwe[address] [place], [place], [address] GAP 9 (Normal) Range: 5-15 CO2 28.0 [...] Range: 70-110 :27 Microalb:Creat Ratio,Random UR Comments: [facility] [address] [place], [place], [address] MALB:CREAT 17.4 {mg/g_CRE} (Normal) MICROALBUMIN,UR 37.5 mg/L (Normal) UR CREAT 215.00 mg/dL (Normal) :40 CBC W/Diff, Automated Comments: [facility] [address] [place], [place], [address] Absolute Lymph 1.60 {X10_3/ul} (Normal) Range: 0.83-4.51 [...] 4.2-5.4 WBC 10.9 K/mm3 (Normal) Range: 4.4-11.0 22-Rlv-90664:39 Comprehensive Metabolic Profil Comments: Order Date: 12/06/16Order Info: 0786-1 - *CMP Complete Metabolic PanelWOhioHealth Mansfield Hospital Mzmvvahoej0867 [place], [place], [address] GAP 10 (Normal) Range: 5-15 CO2 27.0 [...] per A.D.A. criteria. :15 Culture, Urine Comments: [facility] Vewoprubqc[address] [place], [address] CUUR See Note (Normal) Comments: [...] $ <=20 S(NF) indicates non-formulary drug at [facility]. Approval by Infectious Disease Specialist required before non-formulary drugs may be ordered and/or dispensed. :35 HgA1C , Office (80843) HgA1C , Office 6.5 % (Normal) Range: 4.6 - 7.1 :07 AFP, Tumor Marker Comments: Is Patient ? [facility] (refer to report for specific site)refer to report for address and phone number AFP TUMOR 2253 8.5 ng/mL (Abnormal) Range: 0.0-8.3 Comments: Orecon ECLIA methodologyPerformed at: [facility] [address] [id number] Director: Omar Hood PhD, Phone: [phone] :[phone] CBC W/Diff, Automated Comments: [facility] [address] [place], [address] Absolute Lymph 1.17 {X10_3/ul} (Normal) [...] Range: 4.4-11.0 31-May-20179:07 Comprehensive Metabolic Profil Comments: [facility] [address] [place], [place], [address] GAP 9 (Normal) Range: 5-15 CO2 28.0 [...] the [place] Food and Drug Administration.Performed at: [place] [id number] [place], [place] [id number] Director: Zia Jarvis MD, Phone: [phone] INS RES/DIAB RK . (Normal) LDL SIZE [...] . (Normal) 31-May-20179:07 Vitamin D,25 Hydroxy Comments: [facility] [address]jntfgb[address] [place], [address] Vitamin D 25-OH 61.8 ng/mL (Normal) Comments: Vitamin D 25(OH) Status Range Deficiency <20 ng/mL (50nmol/L) Insuffciency 20 - 30 ng/mL (50 - 75 nmol/L) Sufficiency 30 - 100 ng/mL (75 - 250 nmol/L) Toxicity >100 ng/mL (>250 nmol/L) :48 Liver Profile Comments: [facility] [address]wnox[address] [place], [address] D BILI 0.14 mg/dL (Normal) Range: 0.00-0.30 T BILI 0.50 mg/dL (Normal) Range: 0.20-1.00 ALT 57 U/L (Normal) Range: 12-78 ALK P 94 U/L (Normal) Range: 45-117 AST 40 U/L (Abnormal) Range: 15-37 GLOB 2.8 g/dL (Normal) Range: 2.3-3.5 ALB 3.9 g/dL (Normal) Range: 3.4-5.0 T PROT 6.7 g/dL (Normal) Range: 6.4-8.2 :45 Potassium Comments: [facility] Jueseyqpwq[address] [place], [address] K 4.3 mmol/L (Normal) Range: 3.5-5.1 :35 CBC W/Diff, Automated Comments: [address] [place], [place], [address] Absolute Lymph 1.24 {X10_3/ul} (Normal) Range: 0.83-4.51 [...] 4.2-5.4 WBC 3.6 K/mm3 (Abnormal) Range: 4.4-11.0 84-Qsr-02717:35 Comprehensive Metabolic Profil Comments: [facility] Gecpswzbsc7[address] [place], [address] GAP 10 (Normal) Range: 5-15 CO2 31.0 [...] ASPIRATION (SLIDES ONLY) See Note (Normal) Comments: [facility] [address]of[address] [place], [address] 0 Comments: Patient: IFEOMA ASHRAF : 1965 (52/F) Acct Num: [id number] Phys: Janelle KING,Alejandro Unit Num: [id number] Loc: LABSPEC Specimen: [id number] Received: 03/18/17 - 1127 Spec Ty pe: ASPIRATION TISSUES TISSUES: COMMENT Correlation with clinical, radiologic findings and appropriate follow up are necessary. CYTOLOGY GROSS Received are ten smears labeled wi th the patient's name and designated per the requisition as left thyroid FNA. Submitted for staining. / 03/18/17 TC:5 CPT: 21298 CYTOLOGY STUDY Slides are reviewed. The specimen [...] <signature on file> 01-Mar-20179:30 HEPATITIS C ANTIBODY (56277) Comments: PATIENT NOT FASTINGPERFORMED BY: [facility]6370 [facility] [id number] Hep C Virus Ab <0.1 {s/co_ratio} (Normal) Range: 0.0-0.9 Comments: Negative: < 0.8 Indeterminate: 0.8 - 0.9 Positive: > 0.9 . The CDC recommends that a positive HCV antibody result be followed up with a HCV Nucleic Acid Amplification test (822036). :30 Potassium Serum (49601) Comments: PATIENT NOT FASTINGPERFORMED BY: [facility]6370 [facility] [id number] Potassium, Serum 4.8 mmol/L (Normal) Range: 3.5-5.2 :29 HgA1C , Office (54945) HgA1C , Office 7.9 % (Abnormal) Range: 4.6 - 7.1 :53 CBC W/Diff, Automated Comments: [facility] [address]vjiyy[address] [place], [place], [address] Absolute Lymph 1.57 {X10_3/ul} (Normal) Range: 0.83-4.51 [...] 4.2-5.4 WBC 4.8 K/mm3 (Normal) Range: 4.4-11.0 33-Ili-08811:53 Comprehensive Metabolic Profil Comments: [facility] [address]xxuaxrlqu50[address] [place], [address] GAP 11 (Normal) Range: 5-15 CO2 32.0 [...] per A.D.A. criteria. :53 Lipid Profile Comments: [facility] Cyfazsywlx[address] [place], [address] VLDL 37 mg/dL (Normal) Range: 5-40 LDL [...] High Risk :53 Microalb:Creat Ratio,Random UR Comments: [facility] [address]rgczrswcl[address] [place], [address] MALB:CREAT 19.7 {mg/g_CRE} (Normal) MICROALBUMIN,UR 27.8 mg/L (Normal) UR CREAT 141.00 mg/dL (Normal) :53 Thyroid Stim Hormone (TSH) Comments: [facility] Irnzvsifsj[address], [address] TSH 2.39 {uIU/mL} (Normal) Range: 0.358-3.74 :53 Vitamin D,25 Hydroxy Comments: [facility] Eqdpohghlj[address] [place], [address] Vitamin D 25-OH 79.9 ng/mL (Normal) Comments: Vitamin D 25(OH) Status Range Deficiency <20 ng/mL (50nmol/L) Insuffciency 20 - 30 ng/mL (50 - 75 nmol/L) Sufficiency 30 - 100 ng/mL (75 - 250 nmol/L) Toxicity >100 ng/mL (>250 nmol/L) 40-Fcb-423691:08 CBC W/Diff, Automated Comments: [facility] [address]lsaemnf[address] [place], [place], [address] Absolute Lymph 2.04 {X10_3/ul} (Normal) Range: 0.83-4.51 [...] 4.2-5.4 WBC 9.0 K/mm3 (Normal) Range: 4.4-11.0 86-Lrp-493636:08 Comprehensive Metabolic Profil Comments: [facility] [address]zexcvasfl[address] [place], [place], [address] GAP 9 (Normal) Range: 5-15 CO2 27.0 [...] 126 mg/dLsuggests DIABETES MELLITUS per A.D.A. criteria. 09-Qgh-119413:00 Culture, Urine Comments: [facility] [address] [place], [address] CUUR See Note (Normal) Comments: Urine CultureORGANISM 1: Mixed Gram Positive OrganismsColony Count >100,000MIX CULTURE Mixed contaminants. Submit a new specimen if indicated. 0-Ovk-252712:25 CBC W/Diff, Auto - EPLAB Comments: At [facility] Outpatient [facility] Medical Oncologypatients receive CBC w/auto Differential ONLY. Physicianwill place an order for a manual differential or Pathologistreview at his discretion. [facility]. [address] [place] [address] MODEL ENGINE MECHANIC: MATEO CASTANEDA DO PH:[phone] Hospital [address]wlzxsyhj33[address] [place], [address] Absolute Lymph 1.42 {X10_3/uL} (Normal) Range: [...] 4.2-5.4 WBC 6.3 K/mm3 (Normal) Range: 4.4-11.0 7-Qdk-788149:25 Comprehensive Metabolic Profil Comments: Order Date: 06/07/16Order Date: 16Serial Specimen #1, #2 or #3? [facility] Wiuxtmdmrk60[address] [place], [address] GAP 11 (Normal) Range: 5-15 CO2 [...] 200 mg/dLsuggests DIABETES MELLITUS per A.D.A. criteria. 2-Wzs-100045:25 LDH 208 U/L (Normal) Comments: Order Date: 06/07/16Order Date: 16Serial Specimen #1, #2 or #3? [address] [place] [address] Yszvtqnhsd8324 Ping [facility] [place], [place], [address] Range: 84-246 8-Han-208795:25 Uric Acid Comments: Order Date: 06/07/16Order Date: 16Serial Specimen #1, #2 or #3? [address] [place] [address] Klgtgoabhr2692 [facility] [place], [place], [address] URIC 3.8 mg/dL (Normal) Range: 2.6-6.0 Comments: The drugs N-Acetylcysteine and Metamizole may falsely deressthis assay. :10 HgA1C , Office (13358) HgA1C , Office 8.0 % (Abnormal) Range: 4.6 - 7.1 :10 Blood Glucose , Office (28543) Blood Glucose , Office 223 (Normal) :24 AFP, Tumor Marker Comments: Is Patient ? [facility] (refer to report for specific site)refer to report for address and phone number AFP TUMOR 2253 8.5 ng/mL (Abnormal) Range: 0.0-8.3 Comments: Orecon ECLIA methodologyPerformed at: [facility] [place] [id number] Director: Omar Hood PhD, Phone: [phone] :[phone] CBC W/Diff, Automated Comments: [facility] [address]rhbqvby[address] [place], [place], [address] Absolute Lymph 1.35 {X10_3/ul} (Normal) Range: 0.83-4.51 [...] 4.2-5.4 WBC 4.1 K/mm3 (Abnormal) Range: 4.4-11.0 26-Tvz-36024:24 Comprehensive Metabolic Profil Comments: [facility] Xvxnmdcaxu[address] [place], [place], [address] GAP 9 (Normal) Range: 5-15 CO2 27.0 [...] 126 mg/dLsuggests DIABETES MELLITUS per A.D.A. criteria. 89-Kns-41694:24 NMR Lipoprofile Comments: [facility] (refer to report for specific site)refer to [...] the [place] Food and Drug Administration.Performed at: [facility] n1447 [place], [place] [id number] Director: Zia Jarvis MD, Phone: [phone] INS RES/DIAB RK . (Normal) LDL SIZE [...] mg/dL (Normal) Range: 100-199 LIPIDS . (Normal) 34-Mkc-584091:53 CBC W/Diff, Automated Comments: [facility] Fkdnkmvzpf[address] [place], [place], [address] Absolute Lymph 1.41 {X10_3/ul} (Normal) Range: 0.83-4.51 [...] 4.2-5.4 WBC 12.2 K/mm3 (Abnormal) Range: 4.4-11.0 52-Phv-945458:53 Comprehensive Metabolic Profil Comments: [facility] Weondvavrz[address] [place], [place], [address] GAP 13 (Normal) Range: 5-15 CO2 24.0 [...] A.D.A. criteria. :42 CBC W/Diff, Automated Comments: [facility] Puqtiluari[address] [place], [place], [address] Absolute Lymph 1.92 {X10_3/ul} (Normal) Range: 0.83-4.51 [...] Range: 4.4-11.0 :42 Comprehensive Metabolic Profil Comments: [facility] Ywcihmgmwm[address] [place], [place], [address] GAP 11 (Normal) Range: 5-15 CO2 25.0 [...] :55 Magnesium Comments: Order Date: 06/07/16Order Date: 06/07/16[facility] Jeufnupvvr[address] [place], [place], [address] MG 2.0 mg/dL (Normal) Range: 1.8-2.4 :57 CBC W/Diff, Auto - EPLAB Comments: At [facility] Outpatient [facility] Medical Oncologypatients receive CBC w/auto Differential ONLY. Physicianwill place an order for a manual differential or Pathologistreview at his discretion. [facility] OUTPATIENT [facility]. [address] [place] [place] [address] MODEL ENGINE MECHANIC: MATEO CASTANEDA DO PH:[phone] Hospital Ibuynoszeq7795 [place], [address] Absolute Lymph 1.38 {X10_3/uL} (Normal) [...] Profil Comments: Order Date: 06/07/16OV Order #: [id number] Specimen #1, #2 or #3? 1 [id number] [facility]field Hospital Cyqohiqfvh7576 [address] [place], [place], [address] GAP 13 (Normal) Range: 5-15 CO2 24.0 [...] (Normal) Comments: Order Date: 06/07/16 Order #: [id number] Specimen #1, #2 or #3? [id number] [place] [id number] [place], [address] Range: 84-246 :56 Magnesium Comments: Order Date: 06/07/16 Order #: [id number] Specimen #1, #2 or #3? [id number] [place] [id number] [place], [address] MG 1.5 mg/dL (Abnormal) Range: 1.8-2.4 :56 Uric Acid Comments: Order Date: 06/07/16 Order #: [id number] Specimen #1, #2 or #3? [address] [place] [id number] [place], [place], [id number] URIC 4.8 mg/dL (Normal) Range: 2.6-6.0 Comments: The drugs N-Acetylcysteine and Metamizole may falsely deressthis assay. :30 Liver Profile Comments: [facility] [id number] [place], [place], [id number] D BILI 0.13 mg/dL (Normal) Range: 0.00-0.30 T BILI 0.40 mg/dL (Normal) Range: 0.20-1.00 ALT 60 U/L (Normal) Range: 12-78 ALK P 126 U/L (Normal) Range: 50-136 AST 37 U/L (Normal) Range: 15-37 GLOB 2.7 g/dL (Normal) Range: 2.3-3.5 ALB 3.4 g/dL (Normal) Range: 3.4-5.0 T PROT 6.1 g/dL (Abnormal) Range: 6.4-8.2 :33 CBC W/AUTO DIFF WBC Comments: PATIENT NOT FASTINGPERFORMED BY: [facility] [id number] [facility] [id number] Information: NURSE DRAW ([id number]) Immature Grans (Abs) 0.0 {x10E3/uL} (Normal) Range: [...] COMPREHENSIVE Comments: PATIENT NOT FASTINGPERFORMED BY: [facility] [id number] [facility] [id number] ([id number]) ALT (SGPT) 41 [iU]/L (Abnormal) Range: 0-32 [...] (Abnormal) Range: 65-99 :09 HgA1C , Office (40614) HgA1C , Office 7.0 % (Normal) Range: 4.6 - 7.1 :14 AFP, Tumor Marker Comments: Is Patient ? [facility] (refer to report for specific site)refer to report for address and phone number AFP TUMOR 2253 7.7 ng/mL (Normal) Range: 0.0-8.3 Comments: Orecon ECLIA methodologyPerformed at: [facility] [place] [id number] Director: Omar Hood PhD, Phone: [phone] :14 CBC W/Diff, Automated Comments: [facility] [address] [place], [place], [address] ; will review on 05/17 Absolute Lymph [...] 4.2-5.4 WBC 4.3 K/mm3 (Abnormal) Range: 4.4-11.0 46-Dqc-66817:14 Comprehensive Metabolic Profil Comments: [facility] [address] [place], [address] GAP 7 (Normal) Range: 5-15 CO2 28.0 [...] per A.D.A. criteria. :14 Lipid Profile Comments: [facility] [address]ovf[address] [place], [id number] VLDL 36 mg/dL (Normal) Range: 5-40 LDL [...] High Risk :14 Microalb:Creat Ratio,Random UR Comments: [facility] [address] [place], [address] ; will review on 05/17 MALB:CREAT 14.6 {mg/g_CRE} (Normal) MICROALBUMIN,UR 23.4 mg/L (Normal) UR CREAT 160.00 mg/dL (Normal) :14 Thyroid Stim Hormone (TSH) Comments: [facility] [address]vbj[address] [place], [address] TSH 1.89 {uIU/mL} (Normal) Range: 0.358-3.74 :14 Vitamin D,25 Hydroxy Comments: [facility] Cgpitnwmig[address] [place], [address] ; will review on 05/17 Vitamin D 25-OH 53.2 ng/mL (Normal) Comments: Vitamin D 25(OH) Status Range Deficiency <20 ng/mL (50nmol/L) Insuffciency 20 - 30 ng/mL (50 - 75 nmol/L) Sufficiency 30 - 100 ng/mL (75 - 250 nmol/L) Toxicity >100 ng/mL (>250 nmol/L) :23 CBC W/Diff, Automated Comments: [facility] [address]ddm[address] [place], [place], [id number] Absolute Lymph 1.65 {X10_3/ul} (Normal) Range: 0.83-4.51 [...] Range: 4.4-11.0 :23 Comprehensive Metabolic Profil Comments: [facility] [address]gczz[address] [place], [place], [address] GAP 9 (Normal) Range: 5-15 CO2 30.0 [...] 126 mg/dLsuggests DIABETES MELLITUS per A.D.A. criteria. 72-Tbt-989051:07 HgA1C , Office (80274) HgA1C , Office 8.5 % (Abnormal) Range: 4.6 - 7.1 :15 CBC W/Diff, Automated Comments: [facility] [address]ul[address] [place], [place], [address] Absolute Lymph 1.76 {X10_3/ul} (Normal) Range: 0.83-4.51 [...] 4.2-5.4 WBC 6.7 K/mm3 (Normal) Range: 4.4-11.0 50-Tcv-08713:15 Comprehensive Metabolic Profil Comments: [facility] Owgjuotivg22[address] [place], [place], [address] GAP 13 (Normal) Range: 5-15 CO2 23.0 [...] 200 mg/dLsuggests DIABETES MELLITUS per A.D.A. criteria. 84-Aez-12840:15 Lipid Profile Comments: [facility] Uslzmzhwsy9668 [facility] [place], [place], [address] VLDL 45 mg/dL (Abnormal) Range: 5-40 LDL [...] High Risk :15 Vitamin D,25 Hydroxy Comments: [facility] Mxujadndlw4814 [facility]. [place], [place], [address] Vitamin D 25-OH 28.8 ng/mL (Normal) Comments: Vitamin D 25(OH) Status Range Deficiency <20 ng/mL (50nmol/L) Insuffciency 20 - 30 ng/mL (50 - 75 nmol/L) Sufficiency 30 - 100 ng/mL (75 - 250 nmol/L) Toxicity >100 ng/mL (>250 nmol/L); ADDENDA: non-emergent till apt :35 CBC W/Diff, Automated Comments: [facility] [address] [place], [place], [address] Absolute Lymph 1.26 {X10_3/ul} (Normal) Range: 0.83-4.51 [...] Range: 4.4-11.0 :35 Comprehensive Metabolic Profil Comments: [facility] [address] [place], [place], [address] GAP 14 (Normal) Range: 5-15 CO2 26.0 [...] 200 mg/dLsuggests DIABETES MELLITUS per A.D.A. criteria. 57-Zah-64577:0 ASPIRATION (SLIDES ONLY) See Note (Normal) Comments: [facility] [address] [place], [place], [address] 0 Comments: Patient: IFEOMA ASHRAF : 1965 (50/F) Acct Num: [id number] Phys: Janelle KING,Alejandro Unit Num: [id number] Loc: LABSPEC Specimen: [id number] Received: 01/06/16 112 Spec Ty pe: ASPIRATION TISSUES TISSUES: COMMENT Correlation with clinical, radiologic findings and appropriate follow up are necessary. CYTOLOGY GROSS Received are 10 smears labeled wit h the patient's name and designated per the requisition as fine needle aspiration left thyroid. Submitted for staining. 01/06/16 TC:5 CPT:04244 CYTOLOGY STUDY Slides are reviewed. The spe [...] Signed Toni Yepez 01/07/16 <signature on file> 1-Rqa-435314:29 CBC W/Diff, Auto - EPLAB Comments: At [facility] Outpatient [facility] Medical Oncologypatients receive CBC w/auto Differential ONLY. Physicianwill place an order for a manual differential or Pathologistreview at his discretion. [facility] OUTPATIENT [facility]. [address] [place] [address] [place] [address] MODEL ENGINE MECHANIC: MATEO CASTANEDA DO PH:[phone] Hospital [address]arkw[address] [place], [place], [address] Absolute Lymph 1.49 {X10_3/uL} (Normal) Range: 0.83-4.51 [...] 4.2-5.4 WBC 4.6 K/mm3 (Normal) Range: 4.4-11.0 3-Efo-799078:28 Comprehensive Metabolic Profil Comments: Serial Specimen #1, #2 or #3? 1[facility] [address] [place], [place], [address] GAP 8 (Normal) Range: 5-15 CO2 26.0 [...] Comments: Serial Specimen #1, #2 or #3? [address] [place] [address] [address] [place], [address]) Range: 84-246 4-Ztm-418277:28 Magnesium Comments: Serial Specimen #1, #2 or #3? [address] [place] [address] [address] [place], [address] MG 1.6 mg/dL (Abnormal) Range: 1.8-2.4 :28 Uric Acid Comments: Serial Specimen #1, #2 or #3? [address] [place] [address] Sk[address] [place], [address] URIC 4.8 mg/dL (Normal) Range: 2.6-6.0 26-Nov-20159:36 Miscellaneous Lab Procedure Comments: Comments: [id number] URINE TOX,RUN LOWEST TESTTest(s) Ordered: [id number] URINE TOX,RUN LOWEST TESTTuscarawas Hospital [address]jhkv63[address] [place], [address] [facility] Comments: 830300 6+OXYCODONE-BUND (ng/mL)DRUG RESULT SCREEN CUTOFF____ Amphetamines,Urine Negat LAB (Normal) scott ng/mL 1000Amphetamine test includes Amphetamine and Methamphetamine.Barbiturates Negative ng/mL 200Benzodiazepines Negative ng/mL 200Cannabinoid TEST Negative ng/mL 20Cocaine (Metab) Negative ng/mL 300Opiates Positive ng/mL 300 Opiates test includes Codeine, Morphine, Hydromorphone, [employer] codone.Please Note:Confirmation performed by Mass SpectrometryCodeine NegativeMorphine NegativeHydromorphone NegativeHydrocodone Positive Hydrocodone Confirm 1950 ng/mL 300Oxycodone/Oxymorphone,Urine Negative ng/mL 300 Test includes Oxydodone and Oxymorphone. TESTI NG PERFORMED AT [facility]. ORIGINAL REPORT ON FILE IN LAB CONTAINS ADDITIONAL TEST SITE INFORMATION. :36 Urine Drug Screen (VISTA) Comments: Comments: [id number] URINE TOX,RUN LOWEST TESTList of Drugs Taken or Suspected? [facility] Vzlthfzyae0540 [place], [place], [address] ; ordered by Basali THC NEGATIVE (Normal) [...] TESTING MUST BE ORDERED SEPARATELY. USE TESTMNEMONIC: [facility] 13-Vsg-665786:20 HgA1C , Office (33155) HgA1C , Office 7.3 % (Abnormal) Range: 4.6 - 7.1 :13 AFP, Tumor Marker Comments: Is Patient ? [facility] (refer to report for specific site)refer to report for address and phone number AFP TUMOR 2253 6.4 ng/mL (Normal) Range: 0.0-8.3 Comments: Khanh ECLIA methodologyPerformed at: CB - [facility] Xugprs4427 [place], [place] [id number] Director: Omar Hood PhD, Phone: [phone] :[phone] CBC W/Diff, Automated Comments: [facility] [address]quv[address] [place], [place], [address] Absolute Lymph 1.59 {X10_3/ul} (Normal) Range: 0.83-4.51 [...] Range: 4.4-11.0 :13 Comprehensive Metabolic Profil Comments: [facility] [address]nxgt[address] [place], [place], [address] GAP 10 (Normal) Range: 5-15 CO2 24.0 [...] per A.D.A. criteria. :13 Lipid Profile Comments: [facility] [address]vkv[address] [place], [place], [address] ; non-emergent and pt has a f/u [...] High Risk :13 Microalb:Creat Ratio,Random UR Comments: [facility] [address] [place], [address] MALB:CREAT 17.0 {mg/g_CRE} (Normal) MICROALBUMIN,UR 43.7 mg/L (Normal) UR CREAT 257.00 mg/dL (Normal) :13 Thyroid Stim Hormone (TSH) Comments: [facility] [address] [place], [address] TSH 1.82 {uIU/mL} (Normal) Range: 0.358-3.74 :13 Vitamin D,25 Hydroxy Comments: [facility] [address]dvlut[address] [place], [place], [address] ; will review at 11/10 appt Vitamin D 25-OH 39.8 ng/mL (Normal) Comments: Vitamin D 25(OH) Status Range Deficiency <20 ng/mL (50nmol/L) Insuffciency 20 - 30 ng/mL (50 - 75 nmol/L) Sufficiency 30 - 100 ng/mL (75 - 250 nmol/L) Toxicity >100 ng/mL (>250 nmol/L) :40 CBC W/Diff, Automated Comments: [facility] [address]ubsoooz[address] [place], [address] Absolute Lymph 1.47 {X10_3/ul} (Normal) [...] 4.2-5.4 WBC 4.7 K/mm3 (Normal) Range: 4.4-11.0 34-Nmd-22751:40 Comprehensive Metabolic Profil Comments: [facility] [address] [place], [place], [address] GAP 13 (Normal) Range: 5-15 CO2 24.0 [...] per A.D.A. criteria. :49 HgA1C , Office (78855) HgA1C , Office 7.8 % (Abnormal) Range: 4.6 - 7.1 44-Jdc-513780:09 CBC W/Diff, Automated Comments: [facility] [address]rf[address]jpc[address] [place], [address] Absolute Lymph 1.07 {X10_3/ul} (Normal) Range: 0.83-4.51 [...] 4.2-5.4 WBC 5.3 K/mm3 (Normal) Range: 4.4-11.0 94-Air-897594:09 Comprehensive Metabolic Profil Comments: [facility] Ctysupkiuo3272 [address] [place], [address] GAP 7 (Normal) Range: 5-15 CO2 28.0 [...] 200 mg/dLsuggests DIABETES MELLITUS per A.D.A. criteria. 6-Ahx-672911:42 CBC W/Diff, Automated Comments: At [facility] Outpatient [facility] Medical Oncologypatients receive CBC w/auto Differential ONLY. Physicianwill place an order for a manual differential or Pathologistreview at his discretion. [facility]. [address] [place] [address] [place] [address] MODEL ENGINE MECHANIC: MATEO CASTANEDA DO PH:[phone] performed at:[facility] Laborato [address] [place], [place] [address] Absolute Lymph 1.60 {X10_3/ul} (Normal) Range: 0.83-4.51 [...] 4.2-5.4 WBC 7.0 K/mm3 (Normal) Range: 4.4-11.0 7-Lus-897189:42 Comprehensive Metabolic Profil Comments: Serial Specimen #1, #2 or #3? 1Test performed at:[facility] Ntyoqaphhg[address] [place] [address] GAP 9 (Normal) Range: 5-15 CO2 25.0 [...] Comments: Please note revised CREATININE reference range rohmwfizz43/22/2015. BUN 20 mg/dL (Abnormal) Range: 7-18 GLU 118 mg/dL (Abnormal) Range: 70-110 Comments: Fasting Glucose result from 110 to <126 mg/dLsuggests IMPAIRED HOMEOSTASIS per A.D.A. criteria. 9-Raz-077280:42 LDH 133 U/L (Normal) Comments: Serial Specimen #1, #2 or #3? 1Test performed at:[facility] [address]vfzqu[address] [place] [address] Range: 84-246 6-Kvq-540482:42 Uric Acid Comments: Serial Specimen #1, #2 or #3? 1Test performed at:[facility] Rvledvmdfi[address] [place] [address] URIC 4.6 mg/dL (Normal) Range: 2.6-6.0 :02 CBC W/Diff, Automated Comments: Test performed at:[facility] [address]dern[address] [place] [address] ; handled by vicki Absolute Lymph 1.23 [...] 4.2-5.4 WBC 4.1 K/mm3 (Abnormal) Range: 4.4-11.0 2-Dxj-002495:02 Comprehensive Metabolic Profil Comments: Test performed at:[facility] Uwntmusfgp[address] [place], [place] [address] GAP 12 (Normal) Range: 5-15 CO2 23.0 [...] Comments: Please note revised CREATININE reference range cxkuvmxab46/22/2015. BUN 11 mg/dL (Normal) Range: 7-18 GLU 214 mg/dL (Abnormal) Range: 70-110 Comments: Glucose result greater than or equal to 200 mg/dLsuggests DIABETES MELLITUS per A.D.A. criteria. 10-Vhm-693277:49 VITAMIN B-12 (CYANOCOBALAMIN) Comments: PATIENT NOT FASTINGPERFORMED BY: [facility]CoR[facility]view [facility] CenterCcuixt4928 [facility] [id number] (72231) Vitamin B12 464 pg/mL (Normal) Range: 211-946 :49 Vitamin D Hydroxy (28544) Comments: PATIENT NOT FASTINGPERFORMED BY: [facility] Qcbahn9332 [facility] [id number] Vitamin D, 25-Hydroxy 11.5 ng/mL (Abnormal) Range: 30.0-100.0 Comments: Vitamin D deficiency has been defined by the [place] of[place]icine and an Endocrine Society practice guideline as alevel of serum 25-OH vitamin D less than 20 ng/mL (1,2).The Endocrine Society went on to further define vitamin Dinsufficiency as a level between 21 and 29 ng/mL (2).1. IOM ([place] of Medicine). 2010. Dietary reference intakes for calcium and D. [place]: The National Academies Press.2. Sami MF, Sophie MOORE, Xiomara LARES, et al. Evaluation, treatment, and prevention of vitamin D deficiency: an Endocrine Society clinical practice guideline. JCEM. 2010; 96(7):1911-30. :49 CBC W/AUTO DIFF WBC Comments: PATIENT NOT FASTINGPERFORMED BY: [facility] Tbkovm5633 [facility] [id number] Information: [id number] (21965) Immature Grans (Abs) 0.0 {x10E3/uL} (Normal) Range: [...] 3.77-5.28 WBC 6.1 {x10E3/uL} (Normal) Range: 3.4-10.8 76-Llh-217171:28 URINE GENESIS CULTURE-NITA COL Comments: PATIENT NOT FASTINGPERFORMED BY: [facility] Ryvbsm0155 [facility] [id number] Information: SRC:URC [id number] COUNT (62277) Antimicrobial MIHEAD (Normal) Comments: S = Susceptible; [...] Imipenem Meropenem Urine Final report (Abnormal) Culture,Comprehensive 01-Znh-466932:24 Urinalysis, Office (20992) UA - LEUKOCYTE ESTERASE Trace (Normal) UA - NITRITE Negative (Normal) URINE UROBILINGN NITA TIMED Normal mg/dL (Normal) UA - PROTEIN 30 mg/dL (Normal) UA - PH 6 (Abnormal) UA - BLOOD Negative (Normal) UA - SPECIFIC GRAVITY 1.030 (Abnormal) UA - KETONES Moderate mg/dL (Normal) UA - BILIRUBIN Small (Normal) UA - GLUCOSE Negative (Normal) :54 Bedside Glucose Comments: Test performed at:[facility] Ghusfvijet3581 [place], [place] [address] BEDSIDE GLU 129 mg/dL (Abnormal) Range: 70-110 Comments: MANAGEMENT OF PATIENT CARE PER NURSING PROTOCOL :47 Urinalysis, Office (95797) UA - LEUKOCYTE ESTERASE Trace (Normal) UA - NITRITE Negative (Normal) URINE UROBILINGN NITA TIMED 2 mg/dL (Normal) UA - PROTEIN 300 mg/dL (Normal) UA - PH 6.0 (Normal) UA - BLOOD Hemolyzed Large (Normal) UA - SPECIFIC GRAVITY 1.030 (Abnormal) UA - KETONES 15 mg/dL (Abnormal) UA - BILIRUBIN Moderate (Normal) UA - GLUCOSE Negative (Normal) 36-Xxj-148886:57 Basic Metabolic Profile (BMP) Comments: Test performed at:[facility] [address]olone[address] [place] [address] GAP 11 (Normal) Range: 5-15 CO2 27.0 [...] 126 mg/dLsuggests DIABETES MELLITUS per A.D.A. criteria. 58-Fta-728087:57 Digoxin Level Comments: Test performed at:[facility] Qccfvsjbem2040 [place] [address] DIG 1.17 ng/mL (Normal) Range: 0.80-2.00 89-Cdw-537209:57 Hemoglobin A1c Comments: Test performed at:[facility] [address] [place] [address] HGB A1C 7.0 % (Abnormal) Range: 4.2-6.3 48-Upp-471729:57 Thyroid Stim Hormone (TSH) Comments: Test performed at:[facility] Q[address] [place] [address] TSH 0.89 {uIU/mL} (Normal) Range: 0.358-3.74 1-Eqm-233121:17 Urine Culture,Comprehensive Comments: PATIENT NOT FASTINGPERFORMED BY: [facility] Ipsekg3146 [facility] [id number] Information: SRC:[facility] [id number] Result 1 BETAGB (Abnormal) Comments: Beta hemolytic [...] 02/28/15How was Urine Obtained? CLEAN CATCHTest performed at:[facility] Coizqupuud8741 [place], [place] [address] AMORPHOUS 1+ URATE (Normal) MUCUS, URINE 1+ [...] :55 CBC W/Diff, Automated Comments: Test performed at:[facility] Jonznpnoxz3741 [place], [place] [address] Absolute Lymph 1.29 {X10_3/ul} (Normal) Range: 0.83-4.51 [...] :55 Comprehensive Metabolic Profil Comments: Test performed at:[facility] [address]ttiyjptyl[address] [place], [place] [address] GAP 10 (Normal) Range: 5-15 CO2 26.0 [...] A.D.A. criteria. :55 Lipase Comments: Test performed at:[facility] W[address]pfxwnds8[address] [place] [address] LIPASE 142 U/L (Normal) Range: 70-290 2-Bry-528187:40 HgA1C , Office (51179) HgA1C , Office 7.4 % (Abnormal) Range: 4.6 - 7.1 :03 CBC W/Diff, Automated Comments: Test performed at:[facility] Igydbmiast[address] [place] [address] Absolute Lymph 1.31 {X10_3/ul} (Normal) Range: 0.83-4.51 [...] 4.2-5.4 WBC 5.1 K/mm3 (Normal) Range: 4.4-11.0 07-Bol-755560:03 Comprehensive Metabolic Profil Comments: Test performed at:[facility] [address]kigomq40[address] [place] [address] GAP 11 (Normal) Range: 5-15 [...] 126 mg/dLsuggests DIABETES MELLITUS per A.D.A. criteria. 37-Dfc-265109:00 Culture, Urine Comments: Test performed at:[facility] [address]cjys[address] [place] [address] CUUR See Note (Normal) Comments: Urine CultureORGANISM 1: Streptococcus agalactiae (B)Reynolds Count 1000-10,000 Streptococcus agalactiae (B): REACTION Ampicillin $ <=0.25 S Benzylpenicillin NF <=0.06 S Ceftriaxone (other dx) $ <=0.12 S Inducable Clindamycin Resistan - Linezolid $$$$ <=2 S Vancomycin $ 0.5 S(NF) indicates non-formulary drug at [facility]. Approval by Infectious Disease Specialist required before non-formulary drugs may be ordered and/or dispensed. * CLSI guidelines does not recommend testing of cephalosporins. This interpretation is deduced from Beta-lactam/penicillin results.; ADDENDA: handled by edvin :32 CBC W/Diff, Auto - EPLAB Only Comments: At [facility] Outpatient [facility], [facility] patientsreceive CBC w/auto Differential ONLY. Physician will placean order for a manual differential or Pathologist review athis discretion. [facility]. [address] [place] [place] [address] MODEL ENGINE MECHANIC: MATEO CASTANEDA DO PH:[phone] performed at:[facility] [address]yujqsqvbr[address] [place], [place] [address] ; [employer] Absolute Neut 2.7 {X10_3/uL} (Normal) Range: 2.0-7.7 [...] Specimen #1, #2 or #3? 1Test performed at:[facility] [address]oxkfyqwk[address] [place] [address] Range: 87-241 Comments: ADDENDA: elliott :34 TSH (58545) Comments: PATIENT WAS FASTINGPERFORMED BY: [facility] HospitalDomino StreetPresbyterian HospitalUumizu9657 [facility] [id number] TSH 1.240 {uIU/mL} (Normal) Range: 0.450-4.500 :34 LIPID PANEL (49750) Comments: PATIENT WAS FASTINGPERFORMED BY: [facility] [place] [address] [id number] LDL/HDL Ratio 2.6 {ratio_units} (Normal) Range: 0.0-3.2 [...] CREATININE RATIO Comments: PATIENT WAS FASTINGPERFORMED BY: edelightPresbyterian HospitalPknofm2857 [facility] [id number]; non- emergent till apt tomorrow (77434) AND (78563) Microalb/Creat Ratio 14.8 {mg/g_creat} (Normal) Range: 0.0-30.0 Microalbumin, Urine 44.5 ug/mL (Abnormal) Range: 0.0-17.0 Creatinine, Urine 301.0 mg/dL (Abnormal) Range: 15.0-278.0 :34 METABOLIC PANEL, Comments: PATIENT WAS FASTINGPERFORMED BY: [facility]6370 [facility] [id number] Information: [id number] COMPREHENSIVE (35552) ALT (SGPT) 21 [iU]/L (Normal) Range: 0-32 [...] Glucose, Serum 161 mg/dL (Abnormal) Range: 65-99 6-Msf-543895:10 HgA1C , Office (99933) HgA1C , Office 7.2 % (Abnormal) Range: 4.6 - 7.1 :47 CBC W/Diff, Automated Comments: Test performed at:[facility] Dfuxdxkbdv[address] [place], [place] [address] ; Handled by Vicki Absolute Lymph 1.43 [...] 4.2-5.4 WBC 5.4 K/mm3 (Normal) Range: 4.4-11.0 82-Lpq-841149:47 Comprehensive Metabolic Profil Comments: Test performed at:[facility] [address]onyoiht[address] [place], [place] [address] GAP 6 (Normal) Range: 5-15 CO2 30.0 [...] Microscopic Examination Comments: PATIENT NOT FASTINGPERFORMED BY: edelightRiverview Medical CenterHnejfz5884 [facility] [id number] Bacteria Few (Normal) Mucus Threads Present (Normal) Epithelial Cells (non renal) 0-10 {/hpf} (Normal) Range: 0 - 10 RBC 0-2 {/hpf} (Normal) Range: 0 - 2 WBC >30 {/hpf} (Abnormal) Range: 0 - 5 :01 Urinalysis, Routine Comments: PATIENT NOT FASTINGPERFORMED BY: edelight Powjha3580 [facility] [id number] Microscopic Examination See below: (Normal) Comments: Microscopic was indicated and was performed. Nitrite, Urine Negative (Normal) Urobilinogen,Semi-Qn 0.2 mg/dL (Normal) Range: 0.0-1.9 Bilirubin Negative (Normal) Occult Blood Negative (Normal) Ketones Trace (Abnormal) Glucose Negative (Normal) Protein 1+ (Abnormal) WBC Esterase 3+ (Abnormal) Appearance Turbid (Abnormal) Urine-Color Yellow (Normal) pH 6.0 (Normal) Range: 5.0-7.5 Specific [place] 1.030 (Normal) Range: 1.005-1.030 :18 CBCD ALC [...] mg/dLsuggests DIABETES MELLITUS per A.D.A. criteria. :01 BUIJN-KPWWDYSWMYT-TPRPP (93488) Comments: PATIENT NOT FASTINGPERFORMED BY: [place] 9338470 [facility] [id number] AFP, Serum, Tumor Marker 7.1 ng/mL (Normal) Range: 0.0-8.3 Comments: Khanh ECLIA methodology :01 PTT (Activated Partial Comments: PATIENT NOT FASTINGPERFORMED BY: [address] [id number] Thromboplastin Time) (89559) aPTT 25 {sec} (Normal) Range: 24-33 Comments: This test has not been validated for monitoring unfractionated heparintherapy. aPTT-based therapeutic ranges for unfractionated heparintherapy have not been established. For general guidelines onHeparin monitoring, refer to the [facility] Directory of Services. :01 PT (Prothrobim Time) (40265) Comments: PATIENT NOT FASTINGPERFORMED BY: [place] 9338470 [facility] [id number] Prothrombin Time 10.4 {sec} (Normal) Range: 9.1-12.0 INR 1.0 (Normal) Range: 0.8-1.2 Comments: Reference interval is for non-anticoagulated patients. . Suggested INR therapeutic range for Vitamin K anta gonist therapy: Standard Dose (moderate intensity therapeutic range): 2.0 - 3.0 Higher intensity therapeutic range 2.5 - 3.5 :01 TSH (39284) Comments: PATIENT NOT FASTINGPERFORMED BY: [facility]6370 [facility] [id number] TSH 1.450 {uIU/mL} (Normal) Range: 0.450-4.500 :01 CBC W/AUTO DIFF WBC Comments: PATIENT NOT FASTINGPERFORMED BY: [facility]6370 [facility] [id number] Information: [id number] (15332) Immature Grans (Abs) 0.0 {x10E3/uL} (Normal) Range: [...] CREATININE RATIO Comments: PATIENT NOT FASTINGPERFORMED BY: edelightRiverview Medical CenterGahpwk3590 [facility] [id number] (13965) AND (91278) Microalb/Creat Ratio 26.4 {mg/g_creat} (Normal) Range: 0.0-30.0 Microalbumin, Urine 96.0 ug/mL (Abnormal) Range: 0.0-17.0 Creatinine, Urine 364.2 mg/dL (Abnormal) Range: 15.0-278.0 :01 METABOLIC PANEL, COMPREHENSIVE Comments: PATIENT NOT FASTINGPERFORMED BY: edelight Buzdfu0234 [facility] [id number] (14680) ALT (SGPT) 19 [iU]/L (Normal) Range: 0-32 [...] mg/dL (Abnormal) Range: 65-99 :01 LIPID PANEL ([id number]) Comments: PATIENT NOT FASTINGPERFORMED BY: [facility]CoR[facility] CenterDirnoj6995 [facility] [id number] LDL/HDL Ratio 2.1 {ratio_units} (Normal) Range: 0.0-3.2 [...] (Normal) Range: 100-199 :19 HgA1C , Office (11426) HgA1C , Office 6.3 % (Normal) Range: 4.6 - 7.1 :11 LDH 205 U/L (Normal) Comments: Serial Specimen #1, #2 or #3? 1 Range: 87-241 81-Gms-159140:10 ECBCD ANC 3.4 {X10_3/uL} (Normal) Range: 2.0-7.7 [...] 7-18 GLU 102 mg/dL (Normal) Range: 70-110 72-Ctf-53032:59 Anaerobic & Aerobic Comments: PATIENT NOT FASTINGPERFORMED BY: REINALDO [facility] Penbym1865 [facility] [id number] Information: SRC:[id number] [id number] RIGHT EYE Culture (37614) Antimicrobial MIHEAD (Normal) Comments: S = Susceptible; [...] hours. Anaerobic Culture Final report (Normal) :57 VGOMW-WUGSYFVYNDU-BYVRI (40364) Comments: PATIENT WAS FASTINGPERFORMED BY: [facility] [id number] AFP, Serum, Tumor Marker 9.2 ng/mL (Abnormal) Range: 0.0-8.3 Comments: Khanh ECLIA methodology :57 PTT (Activated Partial Comments: PATIENT WAS FASTINGPERFORMED BY: [facility]6370 [facility] [id number] Thromboplastin Time) (42133) aPTT 26 {sec} (Normal) Range: 24-33 Comments: This test has not been validated for monitoring unfractionated heparintherapy. aPTT-based therapeutic ranges for unfractionated heparintherapy have not been established. For general guidelines onHeparin monitoring, refer to the [facility] Directory of Services. :57 PT (Prothrobim Time) (74215) Comments: PATIENT WAS FASTINGPERFORMED BY: edelightRiverview Medical CenterGhnaxm6755 [facility] [id number] Prothrombin Time 10.5 {sec} (Normal) Range: 9.1-12.0 INR 1.0 (Normal) Range: 0.8-1.2 Comments: Reference interval is for non-anticoagulated patients. . Suggested INR therapeutic range for Vitamin K anta gonist therapy: Standard Dose (moderate intensity therapeutic range): 2.0 - 3.0 Higher intensity therapeutic range 2.5 - 3.5 :57 TSH (25253) Comments: PATIENT WAS FASTINGPERFORMED BY: edelightRiverview Medical CenterYcwhpz4176 [facility] [id number] TSH 3.200 {uIU/mL} (Normal) Range: 0.450-4.500 :57 CBC WITH MANUAL DIFF Comments: PATIENT WAS FASTINGPERFORMED BY: [facility]6370 [facility] [id number] Information: [id number] (36724) Immature Grans (Abs) 0.0 {x10E3/uL} (Normal) Range: [...] PANEL, COMPREHENSIVE Comments: PATIENT WAS FASTINGPERFORMED BY: LabCoRiverview Medical CenterFseejg6069 [facility] [id number] (89945) ALT (SGPT) 15 [iU]/L (Normal) Range: 0-32 [...] (Abnormal) Range: 65-99 :29 HgA1C , Office (70466) HgA1C , Office 5.4 % (Normal) Range: [...] CHOL 150 mg/dL (Normal) Comments: <200 mg/dL Iryzbsehw486-157 mg/dL Borderline>240 mg/dL High Risk :50 HgA1C , Office (85396) HgA1C , Office 5.8 % (Normal) Range: [...] [facility]. Approximately 10% of breast cancers are not detected by mammography. Anormal mammogram should not delay biopsy of a clinically suspiciousabnormality. Signed:Mele Santiago [facility] 2012 at 9:19:01 AM [id number] Signed GP/GP If you are the referring physician and would like to consult with theradiologist who provided this interpretation, please herbie Bonilla M.D. at [phone]. If this radiologist is unavailable, youwill be directed to another radiologist to assist. If you are a patient with a question regarding this report, pleaseco ntactyour referring physician directly. Professional Interpretation Provided By: [employer], Phone , These documents contain legally protected [...] on 06/15/13920 Sign by: Prashant Delgadillo MD 08-Cle-39760:27 THYROID Radiology Report See Note Comments: STUDY: [...] Delgadillo M.D.June 15, 2013 at 2:56:26 PM [phone] Signed GP/GP If you are the referring physician and would like to consult with theradiologist who provided this interpretation, please contact Sarmad Bonilla at [phone]. If this radiologist is unavailable, youwill be directed to another radiologist to assist. If you are a patient with a question regarding this report, pleasecontactyour referring physician directly. Profes sional Interpretation Provided By: [employer], Phone , These documents contain legally protected [...] 06/15/13 1733 Sign by: Prashant Delgadillo MD 1-Wkf-198858:18 URINE GENESIS CULTURE-NITA COL Comments: PATIENT NOT FASTINGPERFORMED BY: [facility] Aebsoq0996 [facility] [id number] Information: SRC: [id number] COUNT (67316) Antimicrobial MIHEAD (Normal) Comments: S = Susceptible; [...] primarily for treating urinary tract infections. (CLSI, X797-C76,2009) Urine Culture,Comprehensive Final report (Normal) 04-Jun-20138:48 Urinalysis, Office (77852) UA - LEUKOCYTE ESTERASE Large (Normal) UA - NITRITE Positive (Normal) URINE UROBILINGN NITA TIMED 2 mg/dL (Normal) UA - PROTEIN Negative mg/dL (Normal) UA - BLOOD Negative (Normal) UA - KETONES Moderate mg/dL (Normal) UA - BILIRUBIN Moderate (Normal) UA - GLUCOSE Small mg/dL (Normal) 70-Exf-61710:06 MICROALBUMIN: CREATININE RATIO Comments: PATIENT WAS FASTINGPERFORMED BY: ContixRiverview Medical CenterEwlfxp7404 [facility] [id number] (47303) AND (36766) Microalb/Creat Ratio 27.4 {mg/g_creat} (Normal) Range: 0.0-30.0 Microalbumin, Urine 85.2 ug/mL (Abnormal) Range: 0.0-17.0 Creatinine, Urine 311.1 mg/dL (Abnormal) Range: 15.0-278.0 :06 METABOLIC PANEL, Comments: PATIENT WAS FASTINGPERFORMED BY: [facility]ixPresbyterian HospitalXsmerf4843 [facility] [id number] Information: ADD [id number] AND DRAW FEE 99 3340 COMPREHENSIVE (12877) ALT (SGPT) 29 [iU]/L (Normal) Range: 0-32 [...] 76 mg/dL (Normal) Range: 65-99 :06 TSH (62165) Comments: PATIENT WAS FASTINGPERFORMED BY: [place] 9338470 [facility] [id number] TSH 3.040 {uIU/mL} (Normal) Range: 0.450-4.500 :06 LIPID PANEL (57919) Comments: PATIENT WAS FASTINGPERFORMED BY: [address] [id number] LDL/HDL Ratio 2.4 {ratio_units} (Normal) Range: 0.0-3.2 HDL Cholesterol 55 mg/dL (Normal) Comments: According to ATP-III Guidelines, HDL-C >59 mg/dL is considered anegative risk factor for CHD. LDL Cholesterol Calc 134 mg/dL (Abnormal) Range: 0-99 VLDL Cholesterol Ramandeep 18 mg/dL (Normal) Range: 5-40 Cholesterol, Total 207 mg/dL (Abnormal) Range: 100-199 Triglycerides 89 mg/dL (Normal) Range: 0-149 :06 JNJIS-XUWIZOOHVPC-XBEFP (46194) Comments: PATIENT WAS FASTINGPERFORMED BY: [facility]6370 [facility] [id number] AFP, Serum, Tumor Marker 5.4 ng/mL (Normal) Range: 0.0-8.3 Comments: Khanh ECLIA methodology :06 PTT (Activated Partial Comments: PATIENT WAS FASTINGPERFORMED BY: [address] [id number] Thromboplastin Time) (06186) aPTT 27 {sec} (Normal) Range: 24-33 Comments: This test has not been validated for monitoring unfractionated heparintherapy. aPTT-based therapeutic ranges for unfractionated heparintherapy have not been established. For general guidelines onHeparin monitoring, refer to the [facility] Directory of Services. :06 PT (Prothrobim Time) (36998) Comments: PATIENT WAS FASTINGPERFORMED BY: [facility]6370 [facility] [id number] INR 1.1 (Normal) Range: 0.8-1.2 Comments: Reference interval is for non-anticoagulated patients. . Suggested INR therapeutic range for Vitamin K anta gonist therapy: Standard Dose (moderate intensity therapeutic range): 2.0 - 3.0 Higher intensity therapeutic range 2.5 - 3.5 Prothrombin Time 11.0 {sec} (Normal) Range: 9.1-12.0 :51 HgA1C , Office (98594) HgA1C , Office 5.0 % (Normal) Range: [...] 4.2-5.4 WBC 3.6 {k/mm3} (Abnormal) Range: 4.4-11.0 97-Lok-35303:48 CMP GAP 9 (Normal) Range: 5-15 CO2 [...] 0.6-1.0 GLU 91 mg/dL (Normal) Range: 70-110 44-Gbb-37082:03 Rapid Flu (89553 x 2) Influenza A Ag positive b (Normal) 78-Zwq-83905:27 METABOLIC PANEL, COMPREHENSIVE Comments: PATIENT WAS FASTINGPERFORMED BY: LabCoRiverview Medical CenterHpaafh4810 [facility] [id number] (41912) ALT (SGPT) 25 [iU]/L (Normal) Range: 0-32 [...] mg/dL (Normal) Range: 65-99 :27 LIPID PANEL (57744) Comments: PATIENT WAS FASTINGPERFORMED BY: [employer] [facility] [id number] LDL/HDL Ratio 0.9 {ratio_units} (Normal) Range: 0.0-3.2 LDL Cholesterol Calc 29 mg/dL (Normal) Range: 0-99 VLDL Cholesterol Ramandeep 17 mg/dL (Normal) Range: 5-40 HDL Cholesterol 32 mg/dL (Abnormal) Comments: According to ATP-III Guidelines, HDL-C >59 mg/dL is considered anegative risk factor for CHD. Cholesterol, Total 78 mg/dL (Abnormal) Range: 100-199 Triglycerides 84 mg/dL (Normal) Range: 0-149 :27 TSH (59099) Comments: PATIENT WAS FASTINGPERFORMED BY: [employer] [facility] [id number] TSH 3.990 {uIU/mL} (Normal) Range: 0.450-4.500 :27 CBC WITH MANUAL DIFF Comments: PATIENT WAS FASTINGPERFORMED BY: [employer] reQwip [facility] [id number] Information: [id number] (64317) Immature Grans (Abs) 0.0 {x10E3/uL} Range: 0.0-0.1 [...] Comments: Khanh ECLIA methodologyPerformed at: - [facility] [address] [id number] Director: Manuelito Mendez PhD, Phone: [phone] 35-Ttx-13137:39 CBCMD ANC 2.4 3/uL (Normal) Range: 2.0-7.7 [...] CHOL 130 mg/dL (Normal) Comments: <200 mg/dL Dixlomihl882-177 mg/dL Borderline>240 mg/dL High Risk :39 MIACRE tMICROCREAT 16.5 {mg/g_CRE} (Normal) MIALB 23.3 mg/L (Normal) CREU 141.0 mg/dL (Normal) :39 PT INR 1.1 (Normal) PTP 13.6 s (Normal) Range: 11.9-14.4 :39 PTT PTTP 29.5 s (Normal) Range: 24.1-36.2 :17 Rapid Flu (45969 x 2) Influenza A Ag neg (Normal) :29 HgA1C , Office (14257) HgA1C , Office 5.9 % (Normal) Range: 4.6 - 7.1 :53 FT3 2.9 pg/mL (Normal) Range: 2.18-3.98 :53 T4F 1.26 ng/dL (Normal) Range: 0.76-1.46 :53 TPO 8 {IU/mL} (Normal) Range: 0-34 Comments: Performed at: - [facility] [id number] Director: Codi Robles MD, Phone: [phone] 15-Qfx-812050:53 TSH 1.23 {uIU/mL} (Normal) Range: 0.358-3.74 :04 HgA1C , Office (76941) HgA1C , Office 5.8 % (Normal) Range: [...] :26 LIPID Comments: ORDERED TSH LIPID CMP [facility] ORDERED VITD CMP CBCD VLDL 21 [...] {uIU/mL} (Normal) Comments: ORDERED TSH LIPID CMP [facility] ORDERED VITD CMP CBCD Range: 0.358-3.74 :26 VITD 44.8 ng/mL (Normal) Comments: DR.FAST ORDERED TSH LIPID CMP CBCMD MIACREDR.JACINDA ORDERED VITD CMP CBCD Range: 30.0-100.0 Comments: Vitamin D deficiency has been defined by the [place] of[place]icine and an Endocrine Society practice guideline as alevel of serum 25-OH vitamin D less than 20 ng/mL (1,2).The Endocrine Society went on to further define vitamin Dinsufficiency as a level between 21 and 29 ng/mL (2).1. IOM ([place] of [employer]). 2010. Dietary reference intakes for calcium and D. [place]: The National Academies Press.2. Sami MF, Sophie MOORE, Xiomara LARES, et al. Evaluation, treatment, and prevention of vitamin D deficiency: an Endocrine Society clinical practice guideline. JCEM. 2010; 96(7): 1911-30.Performed at: [address] [id number] Director: Codi Robles MD, Phone: [phone] 27-Jan-20128:02 BILAT SCRN DIGITAL & CAD Radiology [...] Signed GP/GP Professional Interpretat ion Provided By: [facility], , To consult with a radiologist regarding this report, please call our [id number] line @ Dicta dani on 01/27/12 0813 by Faustina KING,ArnaldorieleTranscribed on 01/27/12 0950 by ITS IMPORTSign by Faustina KING,Prashant on 01/27/12 0951 Sign by: Prashant Delgadillo MD 54-Wvj-423864:24 HgA1C , Office (52775) HgA1C , Office 5.7 % (Normal) Range: 4.6 - 7.1 15-Qnu-488929:24 Blood Glucose , Office (87833) Blood Glucose , Office 89 (Normal) 20-Zci-963035:31 Urinalysis, Office (57675) UA - LEUKOCYTE ESTERASE Small (Normal) UA - NITRITE Positive (Normal) URINE UROBILINGN NITA TIMED Normal mg/dL (Normal) UA - PROTEIN 300 mg/dL (Normal) UA - PH 6.0 (Normal) UA - SPECIFIC GRAVITY 1.025 (Normal) UA - KETONES Small mg/dL (Normal) UA - BILIRUBIN Moderate (Normal) UA - GLUCOSE Negative (Normal) :15 HgA1C , Office (06840) HgA1C , Office 6.8 % (Normal) Range: 4.6 - 7.1 :15 Blood Glucose , Office (92039) Blood Glucose , Office 162 (Normal) 26-Vly-602750:22 THYROID Radiology Report See Note (Normal) Comments: [...] 09/08/11 1330 Sign by: Prashant Delgadillo MD 34-Djx-47766:59 COMP METABOLIC GAP 9 (Normal) Range: 5-15 [...] COL Comments: PATIENT NOT FASTINGPERFORMED BY: [facility] Iaifbg8229 [facility] [id number] Information: SRC:[facility] [id number] COUNT (15940) Antimicrobial MIHEAD (Normal) Comments: S = Susceptible; [...] pneumoniae (Normal) Urine Final report Culture,Comprehensive (Normal) 36-Ltm-64833:32 Urinalysis, Office (66681) UA - LEUKOCYTE ESTERASE Moderate (Normal) URINE UROBILINGN NITA TIMED Normal mg/dL (Normal) UA - PROTEIN 100 mg/dL (Normal) UA - PH 6.0 (Normal) UA - BLOOD Hemolyzed Large (Normal) UA - SPECIFIC GRAVITY 1.025 (Normal) UA - KETONES Negative mg/dL (Normal) UA - BILIRUBIN Negative (Normal) UA - GLUCOSE Negative (Normal) :28 Blood Glucose , Office (60325) Blood Glucose , Office 223 (Normal) :10 Urinalysis, Office (72098) UA - BILIRUBIN Small (Normal) UA - BLOOD Hemolyzed Large (Normal) UA - GLUCOSE Small (Normal) Comments: 100 UA - KETONES Negative mg/dL (Normal) UA - LEUKOCYTE ESTERASE Trace (Normal) UA - NITRITE Positive (Normal) UA - PH 5.0 (Normal) UA - PROTEIN 300 mg/dL (Normal) UA - SPECIFIC GRAVITY 1.020 (Normal) URINE UROBILINGN NITA TIMED 2 mg/dL (Normal) 6-Yak-362760:29 URINE GENESIS CULTURE-NITA COL Comments: PATIENT NOT FASTINGPERFORMED BY: [facility] Oyvimq8354 [facility] [id number] Information: SRC:UR [id number] COUNT (53644) Antimicrobial MIHEAD (Normal) Comments: S = Susceptible; [...] mL (Normal) Urine Final report (Normal) Culture,Comprehensive 5-Eka-882968:31 Urinalysis, Office (68339) UA - BILIRUBIN Large (Normal) UA - [...] (Abnormal) Range: 0.358-3.74 :28 HgA1C , Office (45979) HgA1C , Office 8.3 % (Abnormal) Range: 4.6 - 7.1 :28 Blood Glucose , Office (85001) Blood Glucose , Office 176 (Normal) :24 [...] 200-240 mg/dL Borderline >240 mg/dL High Risk 90-Lab-112998:54 BRAIN/HEAD W/WO CONTRAST Radiology See Note Comments: [...] Prashant Delgadillo MD :44 HgA1C , Office (37909) HgA1C , Office 7.4 % (Abnormal) Range: 4.6 - 7.1 :44 Blood Glucose , Office (75884) Blood Glucose , Office 206 (Normal) :37 [...] Report See Note (Normal) Comments: Exam Number: [id number] AMMOGRAPHY - BILATERAL SCREENING INDICATION:Routine annual screening [...] attaching a ResultCode to this exam. ADDENDUM: [id number] HPBI/MDS Reported By: PRASHANT DELGADILLO :14 HgA1C , Office (74379) HgA1C , Office 7.0 % (Normal) Range: 4.6 - 7.1 :14 Blood Glucose , Office (00381) Blood Glucose , Office 164 (Normal) :30 LASHA DIR SEMI-QL LASHA DIRECT 24 AU/mL (Normal) :30 ANTI-dsDNA AB 10 {IU/mL} (Normal) :30 TSH 6.39 {uIU/mL} (Abnormal) Range: 0.358-3.74 67-Xqk-814808:35 C-REACTIVE PROTEIN (78198) Comments: PATIENT NOT FASTINGPERFORMED BY: LabCoRiverview Medical CenterIpnsqk6435 [facility] [id number] C-Reactive Protein, Quant 6.5 mg/L (Abnormal) Range: 0.0-4.9 11-Tjr-844083:35 SED RATE ERYTHROCYTE (52991) Comments: PATIENT NOT FASTINGPERFORMED BY: [facility]6370 [facility] [id number] Sedimentation Rate-Westergren 14 mm/h (Normal) Range: 0-20 91-Qhb-116684:35 RHEUMATOID FACTOR-QUANT (81154) Comments: PATIENT NOT FASTINGPERFORMED BY: [facility]6370 [facility] [id number] RA Latex Turbid. 7.6 {IU/mL} (Normal) Range: 0.0-13.9 58-Ytp-846526:35 LASHA (ANTINUCLEAR ANTIBODY) Comments: PATIENT NOT FASTINGPERFORMED BY: [facility]6370 [facility] [id number] (51416) LASHA Direct Positive (Abnormal) 84-Nxp-705925:35 T3, FREE (TRIDOTHYRONINE) (75453) Comments: PATIENT NOT FASTINGPERFORMED BY: [facility]6370 [facility] [id number] Triiodothyronine,Free,Serum 2.8 pg/mL (Normal) Range: 2.0-4.4 77-Qmo-896833:35 T4, FREE (THYROXINE) (54777) Comments: PATIENT NOT FASTINGPERFORMED BY: [facility]6370 [facility] [id number] T4,Free(Direct) 0.76 ng/dL (Abnormal) Range: 0.82-1.77 81-Kcv-140024:35 Anti-TPO Antibody (95279) Comments: PATIENT NOT FASTINGPERFORMED BY: [facility]6370 [facility] [id number] Thyroid Peroxidase (TPO) Ab <6 {IU/mL} (Normal) Range: 0-34 64-Rtq-904075:35 TSH (61419) Comments: PATIENT NOT FASTINGPERFORMED BY: [facility]6370 [facility] [id number] TSH 5.630 {uIU/mL} (Abnormal) Range: 0.450-4.500 Comments: Please note reference interval change 94-Slq-660713:35 METABOLIC PANEL, Comments: PATIENT NOT FASTINGPERFORMED BY: [facility] Dlwcif4688 [facility] [id number] Information: [id number],[id number] COMPREHENSIVE (87554) ALT (SGPT) 55 [iU]/L (Abnormal) Range: 0-40 [...] Glucose, Serum 151 mg/dL (Abnormal) Range: 65-99 07-Ihg-056230:02 GENESIS CULTURE-OTHER (66442) Comments: PATIENT NOT FASTINGPERFORMED BY: REINALDO [facility] Jdqnri6060 [facility] [id number] Information: SRC:THRT [id number] Result 1 Yeast isolated. (Normal) Comments: Moderate growthRequest for further identification must be madewithin 1 week. Upper Respiratory Culture Final report (Normal) 35-Ycw-45796:37 Rapid Strep Test, Office (65839) Rapid Strep Test, Office Negative (Normal) 68-Usn-508746:11 THYROID (HP) Radiology Report See Note (Normal) Comments: Exam Number: [id number] CLINICAL:This is a 45-year-old female patient with [...] CHOL 147 mg/dL (Normal) Comments: <200 mg/dL Gxgrsxwya916-166 mg/dL Borderline>240 mg/dL High Risk HDL 32 [...] :41 TSH 4.85 {uIU/mL} (Abnormal) Range: 0.358-3.74 10-Zfm-335694:50 URINE GENESIS CULTURE-NITA COL Comments: PATIENT NOT FASTINGPERFORMED BY: [facility] Bqeqap7332 [facility] [id number] Information: SRC:UR ADD [id number] COUNT (95727) Result 1 Klebsiella pneumoniae Comments: 1,000 Colonies/mL [...] STrimethoprim/Sulfa S Urine Final report (Normal) Culture,Comprehensive 18-Jdn-13143:55 Urinalysis, Office (59897) UA - LEUKOCYTE ESTERASE Small (Normal) UA - NITRITE Negative (Normal) URINE UROBILINGN NITA TIMED Normal mg/dL (Normal) UA - PROTEIN 30 mg/dL (Normal) UA - PH 6.0 (Normal) UA - BLOOD Negative (Normal) UA - SPECIFIC GRAVITY 1.020 (Normal) UA - KETONES Negative mg/dL (Normal) UA - BILIRUBIN Negative (Normal) UA - GLUCOSE Negative (Normal) 5-Pdg-766120:37 PET/CT,TUMOR,BASE-THIGH,SUBS Radiology Report See Note (Normal) Comments: Exam Number: [id number] EXAM: Body PET study Head to Mid [...] 44:398P, 2003). w Reported By: ADELA MOLINA 4-Ndc-731851:00 PRANEETH+ELPU24 3467 ALBUMIN,U 37.7 % (Normal) VRUDK-4-OTRH,U 3.2 % (Normal) DFFQT-1-DZHY,U 7.6 % (Normal) BETA GLOB,U 23.1 % (Normal) GAMMA GLOB,U 28.5 % (Normal) PRANEETH RESULT,U Comment (Normal) Comments: No monoclonality detected. M-SPIKE,UR% SeeNote % (Normal) Comments: Result: Not Observed PROTEIN, U24 62.1 {mg/24_hr} Range: 30.0-150.0 (Normal) PROTEIN,UR 2.3 mg/dL (Normal) Range: 0.0-15.0 0-Ehe-793338:15 C-REACTIVE PROT < 2.90 mg/L (Normal) Range: 0.0-3.0 Comments: C-Reactive Protein (CRP) provides useful information for thediagnosis, therapy and monitoring of inflammatory processesand associated diseases. For the evaluation of Relative Riskfor Cardiovascular Dise ase, a High Sensitivity CRP (HSCRP)should be ordered. 9-Abv-355809:15 CBCD,SMEAR DIFF PLT EST SeeNote (Normal) Comments: [...] 4.2-5.4 WBC 4.3 K/mm3 (Abnormal) Range: 4.4-11.0 9-Qzb-913637:15 COMP METABOLIC CL 104 mmol/L (Normal) Range: [...] <126 mg/dLsuggests IMPAIRED HOMEOSTASIS per A.D.A. criteria. 0-Gjo-426008:15 ESR SED RATE 11 mm/h (Normal) Range: 0-20 4-Zhg-429747:15 LDH 197 U/L (Abnormal) Range: 100-190 6-Fnk-020548:15 LIPID HDL 30 mg/dL (Abnormal) Comments: Reference [...] CHOL 154 mg/dL (Normal) Comments: <200 mg/dL Tiarorgwz425-133 mg/dL Borderline>240 mg/dL High Risk 8-Niq-698452:15 PROT.[id number] NOTE Comment (Normal) Comments: Protein electrophoresis scan will follow via computer,mail, or pressure supervisor delivery.Performed at: - [facility] [id number] Director: Kamlesh Arana MD ALBUMIN,UR 54.2 % (Normal) BCRGS-3-EULC,U 1.2 % (Normal) NZJPV-2-TUBN,U 9.4 % (Normal) BETA GLOB,U 23.4 % (Normal) GAMMA GLOB,U 11.8 % (Normal) M-SPIKE,U SeeNote % (Normal) Comments: Result: Not Observed PROTEIN,UR 13.6 mg/dL (Normal) Range: 0.0-15.0 1-Gta-348311:15 SPE [id number] A/G RATIO 1.8 (Normal) Range: 0.7-2.0 GLOBULIN, [...] electrophoresis scan will follow via computer,mail, or pressure supervisor delivery. M-SPIKE SeeNote g/dL (Normal) Comments: Result: Not Observed GAMMA GLOBULIN 0.4 g/dL (Abnormal) Range: 0.5-1.6 ALBUMIN 3.9 g/dL (Normal) Range: 3.2-5.6 ALPHA-1 GLOBUL 0.2 g/dL (Normal) Range: 0.1-0.4 ALPHA-2 GLOBUL 0.7 g/dL (Normal) Range: 0.4-1.2 BETA GLOBULIN 0.9 g/dL (Normal) Range: 0.6-1.3 PROTEIN,TOTAL 6.1 g/dL (Normal) Range: 6.0-8.5 96-Kft-895014:28 BRAIN/HEAD WITHOUT CONTRAST Radiology Report See Note (Normal) Comments: Exam Number: [id number] CT SCAN OF BRAIN HISTORYLytic lesion, lymphoma. Scans were obtained at 2.5-mm intervals through the posterior fossaand 5-mm intervals through the remainder of the brai n. [facility] entstudy is compared to the examination [...] for confirmation. Reported By: TRUE NAGEL M.D. 92-Vod-450103:23 SPINE,CERVICAL WITHOUT CONTRAS Radiology Report See Note (Normal) Comments: Exam Number: [id number] CLINICAL:44 year old female with cervical radiculopathy. [...] tumor involvement. Reported By: SHARYN JASMINE M.D. 14-Vbq-518486:50 Blood Glucose , Office (47526) Blood Glucose , Office 105 (Normal) 39-Xrq-093792:50 HgA1C , Office (71405) HgA1C , Office 6.1 % (Normal) Range: 4.6 - 7.1 77-Iye-081663:24 URINE GENESIS CULTURE-NITA COL Comments: PATIENT NOT FASTINGPERFORMED BY: REINALDO [facility] Qypjro0825 [facility] [id number] Information: SRC:INGRID [id number] COUNT (85098) Antimicrobial MIHEAD (Normal) Comments: S = Susceptible; [...] mL (Normal) Urine Final report (Normal) Culture,Comprehensive 77-Qoq-791341:41 Urinalysis, Office (70394) UA - LEUKOCYTE ESTERASE Large (Normal) UA - NITRITE Negative (Normal) URINE UROBILINGN NITA TIMED Normal mg/dL (Normal) UA - PROTEIN 100 mg/dL (Normal) UA - PH 5.0 (Normal) UA - BLOOD Hemolyzed Large (Normal) UA - SPECIFIC GRAVITY 1.025 (Normal) UA - KETONES Negative mg/dL (Normal) UA - BILIRUBIN Negative (Normal) UA - GLUCOSE Negative (Normal) 1-Rps-450775:19 BLOOD GAS, O2 SAT ONLY - INITL Radiology Report See Note (Normal) Comments: Exam Number: [id number] Procedure completed. Please see MEDICAL RECORDS reports in PCI - OP - OP NOTE LET - LETTER. Reported By: BOONE CH M.D. 1-Xky-445265:19 BLOOD GAS, O2 SAT ONLY - SUBSQ Radiology Report See Note (Normal) Comments: Exam Number: [id number] Procedure completed. Please see MEDICAL RECORDS reports in PCI - OP - OP NOTE LET - LETTER. Reported By: BOONE CH M.D. 3-Tfi-120061:19 BLOOD GAS, O2 SAT ONLY - SUBSQ Radiology Report See Note (Normal) Comments: Exam Number: [id number] Procedure completed. Please see MEDICAL RECORDS reports in PCI - OP - OP NOTE LET - LETTER. Reported By: BOONE CH M.D. 04-Aug-20096:45 RHC/LHC/CORS/LV Radiology Report See Note (Normal) Comments: Exam Number: [id number] Procedure completed. Please see MEDICAL RECORDS reports [...] MIXED GRAM POSITIVE ORGANISMS :58 Urinalysis, Office (83446) UA - BILIRUBIN Negative (Normal) UA - BLOOD Negative (Normal) UA - GLUCOSE Negative (Normal) UA - KETONES Negative mg/dL (Normal) UA - LEUKOCYTE ESTERASE Small (Normal) Comments: aw UA - NITRITE Negative (Normal) UA - PH 6.0 (Normal) UA - PROTEIN Negative mg/dL (Normal) UA - SPECIFIC GRAVITY 1.010 (Normal) URINE UROBILINGN NITA TIMED Normal mg/dL (Normal) :53 HgA1C , Office (27606) HgA1C , Office 5.7 % (Normal) Range: 4.6 - 7.1 :53 Blood Glucose , Office (06300) Blood Glucose , Office 133 (Normal) :24 [...] (Normal) Range: 6.4-8.2 :53 HgA1C , Office (34101) HgA1C , Office 10.0 % (Abnormal) Range: 4.6 - 7.1 :53 Blood Glucose , Office (52086) Blood Glucose , Office 410 (Normal) :46 [...] 11.6-14.6 WBC 4.0 K/mm3 (Abnormal) Range: 4.4-11.0 9-Iwt-958259:46 COMP METABOLIC A/G 1.2 {RATIO} (Normal) Range: [...] mg/dL VLDL 49 mg/dL (Abnormal) Range: 40 4-Oby-437006:46 MICROALB:CRE UR MALB:CREAT 33.3 {mg/g_CRE} (Abnormal) MICROALBUMIN,UR 62.2 mg/L (Normal) UR CREAT 186.7 mg/dL (Normal) 81-Ypv-836973:11 LIPID Comments: PATIENT NOT FASTING/DEMANDED TO BE [...] mg/dL VLDL 31 mg/dL (Normal) Range: 40 67-Tjj-318330:11 LIVER Comments: PATIENT NOT FASTING/DEMANDED TO BE DRAWN ALT 43 U/L (Normal) Range: 30-65 D BILI 0.07 mg/dL (Normal) Range: 0.00-0.30 T BILI 0.35 mg/dL (Normal) Range: 0.00-1.00 ALB 3.4 g/dL (Normal) Range: 3.4-5.0 ALK P 210 U/L (Abnormal) Range: 50-136 AST 27 U/L (Normal) Range: 15-37 T PROT 6.4 g/dL (Normal) Range: 6.4-8.2 77-Cpe-143848:23 Urinalysis, Office (29840) Comments: done BC UA - BILIRUBIN Negative (Normal) UA - BLOOD Hemolyzed Large (Normal) UA - GLUCOSE Large (Normal) Comments: > 1000mg/dL UA - KETONES Negative mg/dL (Normal) UA - LEUKOCYTE ESTERASE Moderate (Normal) UA - NITRITE Negative (Normal) UA - PH 6.0 (Normal) UA - PROTEIN 30 mg/dL (Normal) UA - SPECIFIC GRAVITY 1.010 (Normal) URINE UROBILINGN NITA TIMED Normal mg/dL (Normal) 42-Fji-534249:44 MYOCARD PERF SPECT REST/STRESS Radiology Report See Note (Normal) Comments: Exam Number: [id number] MYOCARDIAL PERFUSION SCAN TECHNIQUEThe patient was injected [...] of 37%. Reported By: NOE MORRIS M.D. 98-Ktt-64253:39 SPINE, LUMBAR W/W/O CONTRAST Radiology Report See Note (Normal) Comments: Exam Number: [id number] MAGNETIC RESONANCE IMAGING OF THE LUMBAR SPINE [...] other abnormality. Reported By: SUSAN GOMEZ M.D. 71-Had-470362:04 CULTURE, URINE URINE CULTURE See Note {CFU/mL} (Normal) Comments: COLONY COUNT 25,000-50,000 ORGANISM 1: MIXED GRAM POSITIVE ORGANISMS 72-Xal-765862:15 Urinalysis, Office (21787) UA - LEUKOCYTE ESTERASE Small (Normal) Comments: aw UA - NITRITE Negative (Normal) UA - PH 5.0 (Normal) UA - PROTEIN Negative mg/dL (Normal) URINE UROBILINGN NITA TIMED Normal mg/dL (Normal) UA - BILIRUBIN Negative (Normal) UA - BLOOD Negative (Normal) UA - GLUCOSE Negative (Normal) UA - KETONES Negative mg/dL (Normal) UA - SPECIFIC GRAVITY 1.025 (Normal) 20-Fhv-561645:09 Blood Glucose , Office (18968) Blood Glucose , Office 231 (Normal) 60-Wbt-406611:09 HgA1C , Office (38133) HgA1C , Office 7.1 % (Normal) Range: 4.6 - 7.1 54-Sor-597364:42 CBCD,SMEAR DIFF CELLS COUNTED 100 (Normal) HCT [...] for patient's is the eGFRmultiplied by 1.212. [facility] Laboratory uses the abbreviated Modification [...] Disease W/O Kidney Disease>/= 90 Stage One Gsjdem37 - 89 Stage Two Suspect Decreased GFR30 [...] T PROT 6.5 g/dL (Normal) Range: 6.4-8.2 31-Lco-392789:42 LIPID CHOL 182 mg/dL (Normal) Comments: <200 [...] mg/dL VLDL 36 mg/dL (Normal) Range: 5-40 37-Aal-225694:42 MICROALB:CRE UR MALB:CREAT 35.4 {mg/g_CRE} (Abnormal) MICROALBUMIN,UR 54.7 mg/L (Normal) UR CREAT 154.6 mg/dL (Normal) 74-Yao-844055:42 TSH 2.57 {uIU/mL} (Normal) Range: 0.34-4.82 :40 CULTURE, URINE URINE CULTURE See Note {CFU/mL} (Normal) Comments: COLONY COUNT 1000-10,000 ORGANISM 1: MIXED GRAM POS & NEG ORGANISMS 42-Ylu-513566:36 Urinalysis, Office (49624) UA - BILIRUBIN Negative (Normal) UA - BLOOD Non Hemolyzed Trace (Normal) UA - KETONES Negative mg/dL (Normal) UA - LEUKOCYTE ESTERASE Moderate (Normal) UA - NITRITE Negative (Normal) UA - PH 5.0 (Normal) UA - PROTEIN Negative mg/dL (Normal) UA - SPECIFIC GRAVITY 1.015 (Normal) URINE UROBILINGN NITA TIMED Normal mg/dL (Normal) UA - GLUCOSE Negative (Normal) 50-Vnf-862001:20 CULTURE, URINE URINE CULTURE See Note {CFU/mL} (Normal) Comments: COLONY COUNT 25,000-50,000 ORGANISM 1: MIXED GRAM POS & NEG ORGANISMS :12 Urinalysis, Office (72881) UA - BILIRUBIN Negative (Normal) UA - BLOOD Negative (Normal) UA - GLUCOSE Negative (Normal) UA - KETONES Negative mg/dL (Normal) UA - LEUKOCYTE ESTERASE Small (Normal) UA - NITRITE Negative (Normal) UA - PH 6.0 (Normal) UA - PROTEIN Negative mg/dL (Normal) UA - SPECIFIC GRAVITY 1.005 (Normal) URINE UROBILINGN NITA TIMED Normal mg/dL (Normal) 79-Qyh-473766:08 CBCD,SMEAR DIFF CELLS COUNTED 100 (Normal) EOS [...] 47-70 WBC 5.1 K/mm3 (Normal) Range: 4.4-11.0 20-Vhj-355857:08 COMP METABOLIC A/G 1.5 {RATIO} (Normal) Range: [...] Range: 0.34-4.82 :28 Blood Glucose , Office (02320) Blood Glucose , Office 124 (Normal) :28 HgA1C , Office (72217) HgA1C , Office 6.1 % (Normal) Range: 4.6 - 7.1 :38 CERULOPLAS 1560 21.3 mg/dL (Normal) Range: 17.9-53.3 Comments: Performed At: [address] [id number] :[id number] FERRITIN 189 ng/mL (Normal) Range: 8-252 :38 HEP-ABC 832904 HB CORE [id number] SeeNote (Normal) Comments: Result: Negative HB SURF [...] Please note reference interval change HEP A AB,T.6758 SeeNote (Normal) Comments: Result: Negative HEP A IgM 6734 SeeNote (Normal) Comments: Result: Negative HEP B CORE,TOT SeeNote (Normal) Comments: Result: Negative HVC Ab <0.1 (Normal) Range: 0.0-0.9 Comments: NegativeNot infected with HCV, unless recent infection issuspected or other evidence exists to indicate HCVinfection. AMENDED REPORT 05/21/081907 HVC Ab previously reported as: RIBA RESULT <TEST NOT PERFORMED> (Normal) 50-Yog-963618:38 LIVER ALB 3.5 g/dL (Normal) Range: 3.4-5.0 ALK P 162 U/L (Abnormal) Range: 50-136 ALT 50 U/L (Normal) Range: 30-65 AST 21 U/L (Normal) Range: 15-37 D BILI 0.05 mg/dL (Normal) Range: 0.00-0.30 T BILI 0.38 mg/dL (Normal) Range: 0.00-1.00 T PROT 6.5 g/dL (Normal) Range: 6.4-8.2 96-Nus-348999:38 MITOCHN AB 6650 <20.0 {Units} (Normal) Range: [...] T PROT 6.5 g/dL (Normal) Range: 6.4-8.2 3-Clf-668189:02 THYROID (HP) Radiology Report See Note (Normal) Comments: Exam Number: [id number] THYROID ULTRASOUND HISTORYThyromegaly. High-resolution, real-time linear images [...] is recommended. Reported By: TRUE NAGEL M.D. 67-Hck-118770:05 Blood Glucose , Office (94577) Blood Glucose , Office 135 (Normal) 38-Iht-555677:05 HgA1C , Office (61261) HgA1C , Office 5.6 % (Normal) Range: 4.6 - 7.1 52-Sku-77480:02 CBCD,SMEAR DIFF ANISO 1+ (Normal) CELLS COUNTED [...] Report See Note (Normal) Comments: Exam Number: [id number] CT BRAIN WITHOUT AND WITH INTRAVENOUS CONTRAST [...] clinically warranted. Reported By: AIDAN MASON M.D. 66-Dbc-771400:30 CBCD Comments: CALL [phone] TO [phone] BASO% 0.8 % (Normal) Range: 0-1 EO% [...] Range: 4.4-11.0 :30 COMP METABOLIC Comments: CALL [phone] TO [phone] A/G 1.5 {RATIO} (Normal) Range: 0.9-2.4 ALB [...] T PROT 5.9 g/dL (Abnormal) Range: 6.4-8.2 86-Kxp-351086:30 LDH 206 U/L (Abnormal) Comments: CALL [phone] TO [phone] Range: 100-190 :30 URIC 5.7 mg/dL (Normal) Comments: CALL [phone] TO [phone] Range: 2.6-6.0 :30 CULT, DP WOUND Comments: [...] mg/dL (Abnormal) Range: 40-230 Comments: Performed At: [address] [id number] :41 LDH 211 U/L (Abnormal) Range: 100-190 4-May-42175:41 MG 1.6 mg/dL (Normal) Range: 1.5-2.2 :41 [...] K/mm3 (Abnormal) Range: 4.4-11.0 :30 AFB C&S 736648 Comments: Precautions*: CHEMO PRECAUTIONSSPECIMEN DESCRIPTION: #2 SAME [...] for testing. ec-2 BF/CSF (Normal) 0069 :30 27-Dws-20988:30 FLUID P-FLU (Normal) Comments: OPERATION Not noted [...] DRAWN 07/22/06-TEST MISSED Range: 100-190 :51 SPE [id number] A/G RATIO 1.3 (Normal) Range: 0.7-2.0 ALBUMIN [...] Evidenceof monoclonal protein is not apparent.Performed At: [address] [id number] M-SPIKE SeeNote (Normal) Comments: Result: Not Observed NOTE: Comment (Normal) Comments: Protein electrophoresis scan will follow via mail orcourier. PROTEIN,TOTAL 6.5 g/dL (Normal) Range: 6.0-8.5 :49 Blood Glucose , Office (52824) Blood Glucose , Office 84 (Normal) :49 HgA1C , Office (05560) HgA1C , Office 6.6 % (Normal) Range: [...] Paroxysmal tachycardia Planned Observations METABOLIC PANEL, BASIC (15343)Indication: CHF (congestive heart failure) On: 80-Iqf-575278:05 Request CPK MB FRACTION (93753)Indication: SOB (shortness of breath) On: :21 Request Comments: stat ASSAY, TROPONIN, QUANTITATIVE (aka Troponin I) (26053)Indication: SOB (shortness of breath) On: :21 Request Comments: stat CBC W/AUTO DIFF WBC (93313)Indication: SOB (shortness of breath) On: :08 Request Comments: stat METABOLIC PANEL, COMPREHENSIVE (45450)Indication: SOB (shortness of breath) On: :08 Request Comments: stat D-Dimer (77064)Indication: SOB (shortness of breath) On: :08 Request Comments: stat BNTP (00794)Indication: SOB (shortness of breath) On: :08 Request Comments: stat CBC with auto diff (07940)Indication: Diabetes mellitus type II, controlled On: :03 Request LIPID PANEL (48667)Indication: Diabetes mellitus type II, controlled On: :03 Request METABOLIC PANEL, COMPREHENSIVE (42193)Indication: Diabetes mellitus type II, controlled On: :03 Request HGB A1C (77468)Indication: Diabetes mellitus type II, controlled On: :02 Request TSH (THYROID STIMULATING HORMONE) (60448)Indication: Acquired hypothyroidism On: : Request Metabolic Panel, Basic (69308)Indication: Hyponatremia On: 59-Ecz-634554:00 Request TSH (98199)Indication: Diabetes mellitus type II, controlled On: :48 Request Vitamin B-12 (cyanocobalamin) (63597)Indication: B12 deficiency On: : Request CBC WITH MANUAL DIFF (45566)Indication: B12 deficiency On: :45 Request T3, FREE (TRIDOTHYRONINE) (45541)Indication: Thyroid nodule On: 48 Request Comments: add to labs already drawn T4, FREE (THYROXINE) (71806)Indication: Thyroid nodule On: 47 Request Comments: add to labs already drawn Digoxin (99168)Indication: Cardiomyopathy On: 44 Request LIPID PANEL (71062)Indication: Mixed hyperlipidemia On: :43 Request TSH (22202)Indication: Acquired hypothyroidism On: :43 Request Vitamin D Hydroxy (16971)Indication: Vitamin D deficiency On: 43 Request AOVEP-RCJFALUVHXH-LQGEP (10969)Indication: Fatty liver On: :42 Request VITAMIN B-12 (CYANOCOBALAMIN) (35415)Indication: Fatigue On: 42 Request URINALYSIS, W/ MICRO (79547)Indication: Diabetes mellitus type II, controlled On: :30 Request MICROALBUMIN: CREATININE RATIO (70923) AND (21530)Indication: Diabetes mellitus type II, controlled On: : Request CBC with auto diff (54925)Indication: Diabetes mellitus type II, controlled On: : Request METABOLIC PANEL, COMPREHENSIVE (52168)Indication: Diabetes mellitus type II, controlled On: : Request HGB A1C (70816)Indication: Diabetes mellitus type II, controlled On: 42-Pdl-811526:29 Request HEPATIC FUNCTION PANEL (70582)Indication: Elevated liver enzymes On: 0-Hos-342797:38 Request Comments: do in hospital tuesday when get US Metabolic Panel, Comprehensive (24642)Indication: Epigastric pain On: 47-Kqn-133115:54 Request Sed Rate Erythrocyte (13296)Indication: Epigastric pain On: :54 Request CBC, Platelets & Auto Diff (08268)Indication: Epigastric pain On: :54 Request OVA & PARASITE DIR SMEAR (86099)Indication: Diarrhea On: :53 Request OCCULT BLOOD FECES SCREEN (93986)Indication: Diarrhea On: :53 Request LEUKOCYTE COUNT, FECAL (67738)Indication: Diarrhea On: :53 Request C-DIFFICILE, STOOL (95212)Indication: Diarrhea On: :53 Request GENESIS CULTURE-STOOL (46321)Indication: Diarrhea On: :53 Request Magnesium (96220)Indication: Fatigue On: 40-Jzq-276314:42 Request Vitamin B-12 (cyanocobalamin) (69350)Indication: Fatigue On: 98-Hkt-743025:41 Request MICROALBUMIN: CREATININE RATIO (40237) AND (08621)Indication: Diabetes mellitus type II, controlled On: 88-Csc-364968:40 Request LIPID PANEL (82079)Indication: Mixed hyperlipidemia On: 38-Vay-659633:39 Request CBC W/AUTO DIFF WBC (49056)Indication: Fatty liver On: 93-Wfa-962219:30 Request METABOLIC PANEL, COMPREHENSIVE (63972)Indication: Fatty liver On: 23-Ulg-103398:30 Request Vitamin D Hydroxy (06233)Indication: Vitamin D deficiency On: 66-Wqy-347571:30 Request TSH (89699)Indication: Acquired hypothyroidism On: 73-Fqq-800113:30 Request Digoxin (21171)Indication: Cardiomyopathy On: 24-Nrj-975988:29 Request LIPASE (53811)Indication: Epigastric pain On: :28 Request AMYLASE (43314)Indication: Epigastric pain On: 13-Dsd-650097:28 Request URINE GENESIS CULTURE-IDENTIFICATN (82036)Indication: Leukocytes in urine On: 82-Nui-617580:38 Request MICROALBUMIN: CREATININE RATIO (35270) AND (78717)Indication: Essential hypertension with goal blood pressure less than 130/80 On: :58 Request CBC W/AUTO DIFF WBC (40072)Indication: Essential hypertension with goal blood pressure less than 130/80 On: :58 Request METABOLIC PANEL, COMPREHENSIVE (67174)Indication: Essential hypertension with goal blood pressure less than 130/80 On: :58 Request VEIZT-TNLQDUGLSMS-HPTTD (83805)Indication: Abnormal tumor markers On: :57 Request Vitamin D Hydroxy (77802)Indication: Vitamin D deficiency On: :09 Request LIPOPROTEIN, BLD, BY NMR (61549)Indication: Mixed hyperlipidemia On: :09 Request CBC W/AUTO DIFF WBC (09241)Indication: Diabetes mellitus type II, controlled On: :09 Request METABOLIC PANEL, COMPREHENSIVE (19187)Indication: Diabetes mellitus type II, controlled On: :09 Request Potassium Serum (91829)Indication: Hypopotassemia On: 01-Feo-029210:02 Request SGAPU-HQVYQTGBYPI-MJWMF (54871)Indication: Fatty liver On: 52-Srz-488606:57 Request MICROALBUMIN: CREATININE RATIO (32661) AND (91886)Indication: Essential hypertension with goal blood pressure less than 130/80 On: :45 Request CBC W/AUTO DIFF WBC (63227)Indication: Essential hypertension with goal blood pressure less than 130/80 On: :45 Request METABOLIC PANEL, COMPREHENSIVE (56282)Indication: Essential hypertension with goal blood pressure less than 130/80 On: :45 Request Vitamin D Hydroxy (36161)Indication: Vitamin D deficiency On: :45 Request TSH (72517)Indication: Acquired hypothyroidism On: :45 Request LIPID PANEL (22048)Indication: Mixed hyperlipidemia On: :45 Request CBC W/AUTO DIFF WBC (85496)Indication: Diabetes mellitus type II, controlled On: :28 Request UWTVF-FLDHEWPPQDZ-ENEGY (06114)Indication: Fatty liver On: : Request METABOLIC PANEL, COMPREHENSIVE (26536)Indication: Mixed hyperlipidemia On: : Request LIPOPROTEIN, BLD, BY NMR (68630)Indication: Mixed hyperlipidemia On: : Request Metabolic Panel, Basic (08601)Indication: Hypopotassemia On: :55 Request Comments: 10 days CBC (AUTO) (17283)Indication: Uncontrolled type II diabetes mellitus On: : Request Vitamin D Hydroxy (12983)Indication: Vitamin D deficiency On: : Request MICROALBUMIN: CREATININE RATIO (39650) AND (95503)Indication: Uncontrolled type II diabetes mellitus On: : Request METABOLIC PANEL, COMPREHENSIVE (45328)Indication: Essential hypertension with goal blood pressure less than 130/80 On: : Request XOKPO-HMIITNPMADL-THKND (23797)Indication: Fatty liver On: : Request LIPID PANEL (62017)Indication: Mixed hyperlipidemia On: : Request TSH (53184)Indication: Thyroid nodule On: : Request CBC W/AUTO DIFF WBC (44819)Indication: Uncontrolled type II diabetes mellitus On: :47 Request METABOLIC PANEL, COMPREHENSIVE (78248)Indication: Uncontrolled type II diabetes mellitus On: :47 Request LIPID PANEL (28547)Indication: Mixed hyperlipidemia On: :47 Request Vitamin D Hydroxy (37170)Indication: Vitamin D deficiency On: :47 Request XVUMC-NEXOOJRQZLX-OPNTY (08467)Indication: Fatty liver On: : Request CBC W/AUTO DIFF WBC (26833)Indication: Uncontrolled type II diabetes mellitus On: :26 Request LIPID PANEL (27753)Indication: Mixed hyperlipidemia On: :25 Request MICROALBUMIN: CREATININE RATIO (36779) AND (44653)Indication: Uncontrolled type II diabetes mellitus On: :25 Request TSH (75390)Indication: Acquired hypothyroidism On: :25 Request METABOLIC PANEL, COMPREHENSIVE (44591)Indication: Essential hypertension with goal blood pressure less than 130/80 On: :25 Request Vitamin D Hydroxy (11721)Indication: Vitamin D deficiency On: :25 Request CALCIFEDIOL (05466)Indication: Vitamin D deficiency On: 47-Ynj-318676:44 Request Comments: to be done Jun 2015 after done with ergocalciferol URINE GENESIS CULTURE (NITA COL COUNT) (31470)Indication: UTI (lower urinary tract infection) On: 6-Tmt-099795:22 Request LIPID PANEL (61072)Indication: Mixed hyperlipidemia On: 8-Jud-220966:15 Request CBC W/AUTO DIFF WBC (06819)Indication: Uncontrolled type II diabetes mellitus On: 8-Mly-573463:14 Request METABOLIC PANEL, COMPREHENSIVE (90704)Indication: Uncontrolled type II diabetes mellitus On: 9-Ssg-024495:14 Request TSH (61597)Indication: Acquired hypothyroidism On: 7-Dsd-236423:14 Request VRLIR-YMOBHIXDWID-XVEWO (96168)Indication: Fatty liver On: 4-Ilh-987610:14 Request CBC, Platelets & Auto Diff (70767)Indication: HX, PERSONAL, MALIGNANCY, LYMPHATIC NEC On: 34-Iuy-13888:07 Request CBC WITH MANUAL DIFF (72294)Indication: Abnormal glucose tolerance test On: :33 Request MICROALBUMIN: CREATININE RATIO (15244) AND (60563)Indication: Abnormal glucose tolerance test On: :33 Request LIPID PANEL (32024)Indication: Mixed hyperlipidemia On: :31 Request METABOLIC PANEL, COMPREHENSIVE (20562)Indication: Abnormal glucose tolerance test On: :31 Request URINE GENESIS CULTURE-NITA COL COUNT (57676)Indication: Dysuria On: 85-Wvo-323917:03 Request RETICULOCYTE COUNT (09578)Indication: Anemia On: :37 Request Iron (76836)Indication: Anemia On: :37 Request Ferritin (38536)Indication: Anemia On: :37 Request CBC (Auto) (12386)Indication: Anemia On: :37 Request CBC, Platelets & Auto Diff (33707)Indication: Fever On: :03 Request Metabolic Panel, Comprehensive (62363)Indication: Fever On: :03 Request HgA1C , Office (48758)Indication: Abnormal glucose tolerance test On: :55 Request CBC WITH MANUAL DIFF (75595)Indication: Abnormal glucose tolerance test On: :53 Request METABOLIC PANEL, COMPREHENSIVE (04547)Indication: Abnormal glucose tolerance test On: :53 Request LIPID PANEL (09731)Indication: Mixed hyperlipidemia On: :53 Request ZKSLQ-RJJLCSSMJAE-GOTRI (20733)Indication: Fatty liver On: :53 Request PTT (Activated Partial Thromboplastin Time) (76681)Indication: Fatty liver On: :53 Request PT (Prothrobim Time) (52512)Indication: Fatty liver On: :53 Request MICROALBUMIN: CREATININE RATIO (86691) AND (02722)Indication: Abnormal glucose tolerance test On: 47-Jub-942405:49 Request Anti-TPO Antibody (69447)Indication: Acquired hypothyroidism On: 41-Rpm-455808:14 Request Comments: 1 month TSH (53887)Indication: Acquired hypothyroidism On: 66-Abq-731550:13 Request Comments: 1 month T4, FREE (THYROXINE) (81435)Indication: Acquired hypothyroidism On: :13 Request Comments: 1 month T3, FREE (TRIDOTHYRONINE) (96471)Indication: Acquired hypothyroidism On: 78-Jfc-611859:13 Request Comments: 1 month CBC WITH MANUAL DIFF (79985)Indication: Abnormal glucose tolerance test On: :38 Request METABOLIC PANEL, COMPREHENSIVE (60971)Indication: Abnormal glucose tolerance test On: :38 Request LIPID PANEL (15841)Indication: Mixed hyperlipidemia On: :38 Request MICROALBUMIN: CREATININE RATIO (51904) AND (08130)Indication: Abnormal glucose tolerance test On: 30-Unq-317348:56 Request CBC WITH MANUAL DIFF (35748)Indication: Elevated LFTs On: 18-Sts-860621:56 Request METABOLIC PANEL, COMPREHENSIVE (30980)Indication: Elevated LFTs On: 09-Iye-475836:56 Request LIPID PANEL (08124)Indication: Mixed hyperlipidemia On: 18-Eyi-671110:56 Request TSH (75307)Indication: Acquired hypothyroidism On: 27-Sya-203280:56 Request CBC WITH MANUAL DIFF (43853)Indication: Essential hypertension with goal blood pressure less than 130/80 On: :34 Request TSH (96517)Indication: Acquired hypothyroidism On: :34 Request METABOLIC PANEL, COMPREHENSIVE (88729)Indication: Fatty liver On: :33 Request LIPID PANEL (13880)Indication: Mixed hyperlipidemia On: :33 Request MICROALBUMIN: CREATININE RATIO (85381) AND (95046)Indication: Uncontrolled type II diabetes mellitus On: :46 Request TSH (64597)Indication: Acquired hypothyroidism On: :46 Request LIPID PANEL (19835)Indication: Mixed hyperlipidemia On: :45 Request METABOLIC PANEL, COMPREHENSIVE (30057)Indication: Elevated LFTs On: :45 Request HgA1C , Office (11813)Indication: Uncontrolled type II diabetes mellitus On: :28 Request URINE GENESIS CULTURE-NITA COL COUNT (42625)Indication: Cystitis, acute On: :43 Request URINE GENESIS CULTURE-IDENTIFICATN (95909)Indication: Dysuria On: :10 Request CBC WITH MANUAL DIFF (32362)Indication: Headache On: 33-Rfd-385627:56 Request METABOLIC PANEL, COMPREHENSIVE (30601)Indication: Headache On: 25-Rzr-981389:56 Request LIPID PANEL (30931)Indication: Mixed hyperlipidemia On: 27-Jaw-576438:56 Request TSH (95934)Indication: Acquired hypothyroidism On: 09-Tjy-558896:56 Request METABOLIC PANEL, COMPREHENSIVE (88958)Indication: Uncontrolled type II diabetes mellitus On: 56-Eyu-975620:28 Request HEPATIC FUNCTION PANEL (48920)Indication: Mixed hyperlipidemia On: : Request LIPID PANEL (78112)Indication: Mixed hyperlipidemia On: : Request LIPID PANEL (05415)Indication: Mixed hyperlipidemia On: :39 Request MICROALBUMIN: CREATININE RATIO (99378) AND (90463)Indication: Uncontrolled type II diabetes mellitus On: 39 Request CBC WITH MANUAL DIFF (36708)Indication: Essential hypertension with goal blood pressure less than 130/80 On: :39 Request METABOLIC PANEL, COMPREHENSIVE (35887)Indication: Elevated LFTs On: :39 Request TSH (80664)Indication: Acquired hypothyroidism On: :36 Request TSH (35845)Indication: Thyroid nodule On: :20 Request METABOLIC PANEL, COMPREHENSIVE (66513)Indication: Elevated LFTs On: : Request LIPID PANEL (89941)Indication: Mixed hyperlipidemia On: : Request C-REACTIVE PROTEIN (93002)Indication: Abnormal findings on diagnostic imaging of other specified body structures On: 35-Cqq-299369: Request SED RATE ERYTHROCYTE (70254)Indication: Abnormal findings on diagnostic imaging of other specified body structures On: 92-Epn-385533: Request LDH (LD) (LACTATE DEHYDROGENASE) (54231)Indication: Abnormal findings on diagnostic imaging of other specified body structures On: 92-Bmf-497263: Request Urine Protein Electrophoresis (UPEP) (58336)Indication: Abnormal findings on diagnostic imaging of other specified body structures On: 63-Cyr-836498: Request Serum Protein Electrophoresis (SPEP) (52618)Indication: Abnormal findings on diagnostic imaging of other specified body structures On: 45-Ukw-651439: Request METABOLIC PANEL, COMPREHENSIVE (51407)Indication: Diabetes mellitus type II, controlled On: : Request LIPID PANEL (53393)Indication: Mixed hyperlipidemia On: : Request URINE GENESIS CULTURE-NITA COL COUNT (01053)Indication: Dysuria On: 88-Cbm-947468:58 Request HEPATIC FUNCTION PANEL (50663)Indication: Elevated LFTs On: :18 Request LIPID PANEL (06212)Indication: Mixed hyperlipidemia On: 77-Xje-618255:17 Request MICROALBUMIN: CREATININE RATIO (46312) AND (90363)Indication: Uncontrolled type II diabetes mellitus On: 2-Bpe-759398:47 Request CBC WITH MANUAL DIFF (41175)Indication: Uncontrolled type II diabetes mellitus On: 0-Ate-102441:47 Request METABOLIC PANEL, COMPREHENSIVE (78558)Indication: Uncontrolled type II diabetes mellitus On: 7-Ghz-078835:47 Request HEPATIC FUNCTION PANEL (88258)Indication: Elevated LFTs On: 3-Ovb-302437:45 Request LIPID PANEL (07673)Indication: Mixed hyperlipidemia On: 7-Ssn-348091:44 Request HEPATIC FUNCTION PANEL (14604)Indication: Fatty liver On: 4-Mwv-235312:30 Request LIPID PANEL (29585)Indication: Mixed hyperlipidemia On: 4-Zpn-396555:30 Request URINE GENESIS CULTURE (NITA COL COUNT) (27746)Indication: Low back pain potentially associated with radiculopathy On: 35-Lti-229524:03 Request MICROALBUMIN: CREATININE RATIO (99434) AND (19063)Indication: Dysuria On: 11-Lto-941396:05 Request LIPID PANEL (56262)Indication: Dysuria On: 88-Hsz-677456:05 Request TSH (31529)Indication: Dysuria On: 87-Aof-666245:05 Request METABOLIC PANEL, COMPREHENSIVE (11649)Indication: Dysuria On: 72-Otr-199748:04 Request CBC WITH MANUAL DIFF (03505)Indication: Dysuria On: 91-Lbg-484225:04 Request URINE GENESIS CULTURE-NITA COL COUNT (74550)Indication: Dysuria On: 41-Tgk-012472:45 Request URINE GENESIS CULTURE (NITA COL COUNT) ([id number])Indication: Dysuria On: 71-Zli-415030:17 Request METABOLIC PANEL, COMPREHENSIVE ([id number])Indication: Fatty liver On: 00-Jix-83412:58 Request Magnesium ([id number])Indication: Palpitations On: 40-Wos-91687:51 Request TSH ([id number])Indication: Palpitations On: 70-Yil-47584:51 Request METABOLIC PANEL, COMPREHENSIVE ([id number])Indication: Palpitations On: 82-Lyn-53633:51 Request CBC WITH MANUAL DIFF ([id number])Indication: Palpitations On: 82-Bxv-89608:51 Request GGT (Gamma Glutamyl Transferase) ([id number])Indication: Elevated LFTs On: 86-Wyy-994936:16 Request HEPATIC FUNCTION PANEL ([id number])Indication: Elevated LFTs On: 72-Jeb-840991:16 Request VITAMIN B-12 (CYANOCOBALAMIN) ([id number])Indication: Fatigue On: 61-Xsj-19166:23 Request MICROALBUMIN URINE QUANT ([id number])Indication: Diabetes mellitus type II, controlled On: :22 Request TSH ([id number])Indication: Fatigue On: :22 Request CBC WITH MANUAL DIFF ([id number])Indication: Diabetes mellitus type II, controlled On: :22 Request METABOLIC PANEL, COMPREHENSIVE ([id number])Indication: Diabetes mellitus type II, controlled On: :22 Request LIPID PANEL ([id number])Indication: Mixed hyperlipidemia On: :22 Request HEPATIC FUNCTION PANEL ([id number])Indication: Mixed hyperlipidemia On: 37-Rgo-188276:48 Request LIPID PANEL ([id number])Indication: Mixed hyperlipidemia On: 79-Tvx-819613:48 Request Comments: in 3 mos Planned Encounters Medical; [facility] 1 Month FU - On: 12-Sep-2018 8:00 [facility] Fast DO, Sangeetha A Fast DO, Sangeetha A Medical; Overnight Pulse Ox Placement - On: 20-Sep-2018 13:00 [facility] Visit, Nurse Planned Procedures Echo CompleteBy: Fast DO, Sangeetha A On: 04-Sep-2018 Intent Fast DO, Sangeetha A CTA CHEST W/W/O CONTRAST ([id number])By: On: 04-Sep-2018 Intent Fast DO, Sangeetha A Fast DO, Sangeetha A Overnight Pulse OX ([id number])By: Fast On: 04-Sep-2018 Intent DO, Sangeetha A Fast DO, Sangeetha A Spirometry ([id number])By: Fast DO, On: 04-Sep-2018 Intent Sangeetha A Fast DO, Sangeetha A Comments: difficutly with insp effort severe restriction ELECTROCARDIOGRAM, COMPLETE (ECG) On: 04-Sep-2018 Intent ([id number])By: Fast DO, Sangeetha A Fast DO, Comments: ekg- 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 and possible recent anterior wall mi- nonspecific st depression Sangeetha A Flu Vaccine (Quadrivalent) 31767Vq: On: 21-Jul-2018 Intent Fast DO, Sangeetha A Fast DO, Sangeetha A SCREENING DIGITAL TOMOSYNTHESIS OF On: 21-Jul-2018 Intent BREAST ([id number])By: Fast DO, Sangeetha A Fast DO, Sangeetha A B 12 Injection, 1000 mcg ([id number])By: On: 31-May-2018 Intent Fast DO, Sangeetha A Fast DO, Sangeetha A Comments: Lot#[id number] EXP:[id number] given:left deltoid Given By: clarita albright ABN signed CT - Abdomen (IV Contrast Needed)By: On: 31-May-2018 Intent Fast DO, Sangeetha A Fast DO, Sangeetha A Doppler Ultrasound OtherBy: Fast DO, On: 19-May-2018 Intent Sangeetha A Fast DO, Sangeetha A Comments: left arm ULTRASOUND OF LIVER ([id number])By: On: 24-Feb-2018 Intent Blanca KING, Jennifer Gregory PFT - CompleteBy: Fast DO, Sangeetha A On: 21-Oct-2017 Intent Fast DO, Sangeetha A Comments: at [facility] SCREENING DIGITAL TOMOSYNTHESIS OF On: 21-Oct-2017 Intent BREAST ([id number])By: Fast DO, Sangeetha A Comments: end of oct Fast DO, Sangeetha A EsophagramBy: Fast DO, Sangeetha A Fast On: 21-Oct-2017 Intent DO, Sangeetha A Comments: with 12 mm tablet ELECTROCARDIOGRAM, COMPLETE (ECG) On: 21-Oct-2017 Intent ([id number])By: Fast DO, Sangeetha A Fast DO, Sangeetha A Flu Vaccine (Quadrivalent) 85945Fm: On: 07-Jun-2017 Intent Fast DO, Sangeetha A [...] DO, Sangeetha A DEXA SCAN AXIAL SKELETON ([id number])By: On: 16-Aug-2016 Intent Fast DO, Sangeetha A Fast DO, Sangeetha A MAMMOGRAM, SCREENING, BOTH BREAST On: 16-Aug-2016 Intent ([id number])By: Fast DO, Sangeetha A Fast DO, Sangeetha A ELECTROCARDIOGRAM, COMPLETE (ECG) On: 16-Aug-2016 Intent ([id number])By: Fast DO, Sangeetha A Fast DO, Sangeetha A Flu Vaccine (Quadrivalent) 40387Xe: On: 16-Aug-2016 Intent Fast DO, Sangeetha A Fast DO, Sangeetha A Comments: FLUlot: [id number]/09site:Lt deltoidroute:IMdose:.5ml[facility], [facility] OF INFLUENZA VIRUS On: 16-Aug-2016 Intent VACCINE ([id number])By: Fast DO, Sangeetha A Fast DO, Sangeetha A Ultrasound - ThyroidBy: Fast DO, On: 10-Nov-2015 Intent Sangeetha A Fast DO, Sangeetha A Ultrasound - LiverBy: Fast DO, Sangeetha On: 10-Nov-2015 Intent A Fast DO, Sangeetha A Flu Vaccine (Quadrivalent) 10259Hf: On: 08-Aug-2015 Intent Fast DO, Sangeetha A Fast DO, Sangeetha A Comments: Lot #[id number]-L dltd, IMDose prefilled syringegiven by:AMRITA JassoNVIS and ABN signed MAMMOGRAM, SCREENING, BOTH BREAST On: 08-Aug-2015 Intent ([id number])By: Fast DO, Sangeetha A Fast DO, Sangeetha A Ultrasound - ThyroidBy: Fast DO, On: 08-Aug-2015 Intent Sangeetha A Fast DO, Sangeetha A Ultrasound - LiverBy: Fast DO, Sangeetha On: 08-Aug-2015 Intent A Fast DO, Sangeetha A ADMINISTRATION OF PNEUMOCOCCAL On: 01-Nov-2014 Intent VACCINE ([id number])By: Fast DO, Sangeetha A Fast DO, Sangeetha A PNEUM VAC ADLT/IMUMNOSPR, SBC/INTRM On: 01-Nov-2014 Intent ([id number])By: Fast DO, Sangeetha A Fast DO, Comments: Lot:[id number]:02/29/16Dose:0.5mgRoute:imSite:mk Donis By:BATSHEVA Diaz Ultrasound - LiverBy: Fast DO, Sangeetha On: 05-Jul-2014 Intent A Fast DO, Sangeetha A BILATERAL MAMMOGRAMS ([id number])By: Tavon On: 05-Jul-2014 Intent DO, Sangeetha A Fast DO, Sangeetha A Ultrasound - ThyroidBy: Fast DO, On: 05-Jul-2014 Intent Sangeetha A Fast DO, Sangeetha A ADMINISTRATION OF INFLUENZA VIRUS On: 05-Jul-2014 Intent VACCINE ([id number])By: Tavon DAVIS Sangeetha A Comments: Influenzalot:[id number]:03/25/2015dose:0.5mLRoute: IMlocation:Lois donis by:marika Fast DO, Sangeetha A FLU VAC, SPLIT, >3 YEARS, INTRAMUSC On: 05-Jul-2014 Intent ([id number])By: Sangeetha Irvin DO Fast DO, Sangeetha A INFUSION, NORMAL SALINE SOLUTION , On: 15-Apr-2014 Intent 250 CC ([id number])By: Angelina Winn CNP Rocephon Injection, 1 Gm (J0696)By: On: 15-Apr-2014 Intent Angelina Winn CNP Comments: Rocephin 1gmLot #[id number]. [id number] in R hand x 1 stick with [...] SPLIT, >3 YEARS, INTRAMUSC On: 27-Jul-2013 Intent ([id number])By: Fast DO, Sangeetha A Fast DO, Sangeetha A Eprescribed prescriptions ([id number])By: On: 04-Jun-2013 Intent Delisa Melendez LPN SPECIMEN HANDLING/TRANSPORT On: 04-Jun-2013 Intent ([id number])By: Delisa Melendez LPN INFUSION, NORMAL SALINE SOLUTION , On: 15-Feb-2013 Intent 1000 CC (Special Coverage Comments: 500 cc Instructions Apply. See MCM: 2049) ([id number])By: Jennifer Rios MD HYDRATION IV INFUSION, INIT On: 15-Feb-2013 Intent ([id number])By: Jennifer Rios MD Ultrasound - ThyroidBy: Fast DO, On: 19-Jan-2013 Intent Sangeetha A Fast DO, Sangeetha A MAMMOGRAM, SCREENING, BOTH BREASTS On: 19-Jan-2013 Intent ([id number])By: Fast DO, Sangeetha A Fast DO, Comments: due in january Sangeetha A Eprescribed prescriptions ([id number])By: On: 19-Jan-2013 Intent Isabella Grigsby Pulse Oximetry ([id number])By: Seb, On: 29-Sep-2012 Intent Isabella Comments: 98% [...] MAMMOGRAM, SCREENING, BOTH BREASTS On: 24-Jan-2012 Intent ([id number])By: Fast DO, Sangeetha A Fast DO, Sangeetha A TDAP VACCINE >7 IM ([id number])By: Fast On: 04-Oct-2011 Intent DO, Sangeetha A Fast DO, Sangeetha A Comments: Lot:[id number]:08/12/13Amt:prefilledRoute:IMSite:right deltGiven By: NATALEE Spence Aerosol Treatment ([id number])By: Blanca On: 26-Aug-2011 Intent Jennifer KING Pulse Oximetry ([id number])By: Blanca On: 26-Aug-2011 Intent Jennifer KING SPECIMEN HANDLING/TRANSPORT On: 23-Jul-2011 Intent ([id number])By: Delisa Melendez LPN FLU VAC, SPLIT, >3 YEARS, INTRAMUSC On: 05-Jul-2011 Intent ([id number])By: Isabella Grigsby Comments: Lot #[id number]/20/12Site-left deltoidgiven by: Lisa Bello LPN Ultrasound - ThyroidBy: Fast DO, On: 05-Jul-2011 Intent Sangeetha A Fast DO, Sangeetha A MAMMOGRAM, SCREENING, BOTH BREASTS On: 05-Jul-2011 Intent ([id number])By: Fast DO, Sangeetha A Fast DO, Sangeetha A ADMINISTRATION OF INFLUENZA VIRUS On: 05-Jul-2011 Intent VACCINE (G0008)By: Isabella Grigsby Eprescribed prescriptions ([id number])By: On: 04-Jun-[address] - Brain/HeadBy: Fast DO, Sangeetha A On: 07-Oct-2010 Intent Fast DO, Sangeetha A Comments: with and without contrast MAMMOGRAM, SCREENING, BOTH BREASTS On: 26-Jun-2010 Intent ([id number])By: Fast DO, Sangeetha A Fast DO, Sangeetha A ADMINISTRATION OF INFLUENZA VIRUS On: 26-Jun-2010 Intent VACCINE (G0008)By: Fast DO, Sangeetha A Fast DO, Sangeetha A FLU VAC, SPLIT, >3 YEARS, INTRAMUSC On: 26-Jun-2010 Intent ([id number])By: Fast DO, Sangeetha A Fast DO, Comments: Lot:[id number]:12/2010Dose:0.5mlRoute:IMSite:Left DeltoidGiven by: HEIDI Alberto Ultrasound - ThyroidBy: Fast DO, On: 07-Jan-2010 Intent Sangeetha A Fast DO, Sangeetha A CT - Spine/CervicalBy: Fast DO, On: 15-Dec-2009 Intent Sangeetha A Fast DO, Sangeetha A Comments: 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 -- need to rule out Pulse Oximetry ([id number])By: Fast DO, On: 09-Jul-2009 Intent Sangeetha A Fast DO, Sangeetha A Spirometry ([id number])By: Fast DO, On: 10-Jul-2009 Intent Sangeetha A Fast DO, Sangeetha A Comments: good effort and curve- mild restriciton Radiology - Chest- PA and LatBy: On: 09-Jul-2009 Intent Fast DO, Sangeetha A Fast DO, Sangeetha A Pulse Oximetry ([id number])By: Fast DO, On: 10-Jul-2009 Intent Sangeetha A Fast DO, Sangeetha A Comments: 98 FLU VAC, SPLIT, >3 YEARS, INTRAMUSC On: 09-Jul-2009 Intent ([id number])By: Isabella Grigsby Comments: Lot #[id number]-right deltoidDose0.5mlgiven by Juventino Nye LPN IMMUNIZ ADMNIN, 1 VAC, SNGL/COMBO On: 09-Jul-2009 Intent ([id number])By: Isabella Grigsby EKG ([id number])By: Fast DO, Sangeetha A On: 10-Oct-2008 Intent [...] ADMNIN, 1 VAC, SNGL/COMBO On: 10-Jul-2008 Intent ([id number])By: Fast DO, Sangeetha A Fast DO, Sangeetha A FLU VAC, SPLIT, >3 YEARS, INTRAMUSC On: 10-Jul-2008 Intent ([id number])By: Fast DO, Sangeetha A Fast DO, Comments: injection given in left deltoid, pt tolerated welllot # [id number]/ Sangeetha A Holter Monitor 24 hrsBy: Fast DO, On: 10-Jul-2008 Intent Sangeetha A Fast DO, Sangeetha A EKG ([id number])By: Marlene Reddy On: 10-Jul-2008 Intent Comments: ekg [...] some palps- supposed to see rosetta in [facility] Diagnosis: BMI 31.0-31.9,adult, Nonsmoker, SOB (shortness of [...] using tylenol and will go back to [place] if need be for shot-sugar fine-n foot [...] off metformin and lisinopril andthen went to [place] for couple weeks then had multiple falls sent back to hospital and transferred to [facility] for few weeks then to [facility] had lots of pt- and doing [...] fasting blood sugars : (was lower before [place] and 139 last week fasting in the [...] Reason for hospitalization abdominal pain (Went to [facility] on 02/28/15). Hospitalization details include: [...] previously evaluated by a primary physician (at [facility]- Dr Reyes ). Presentation included lid [...] is helping her mood- has followup in [place] may 04 - her weight down 20 [...] failure doctor next week at [facility] - -- mood ebs and flows- sees [...] of all the problems -goes back to [facility] on tuesday and psych in 2 [...] or less). 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
--- OUTSIDE RECORDS SUMMARY | 2018-10-21 23:27 | XMS RPT_ITS | Continuity of Care Document ---
:1965 Author Organization [facility] Address [facility] [address] [place] [address] Phone Care Team Providers Name Role Phone [...] Quantity: 30 {QS} Refills: 11 Ordered:08-Sep-2018 Long DIRECTOR ORACLE RETAIL, Amelia L Start : 08-Sep-2018 Active Comments:Home [...] Quantity: 10 {Tablet} Refills: 0 Ordered:23-Feb-2018 Long DIRECTOR ORACLE RETAIL, Amelia L Start : 23-Feb-2018 Active AMITIZA, [...] Quantity: 30 {Tablet} Refills: 0 Ordered:05-Jul-2011 Al DIRECTOR ORACLE RETAILDelisa Chaidez Start : 05-Jul-2011 End : 04-Aug-2011 [...] : 25-Jan-2018 End : 19-May-2018 Inactive ERGOCALCIFEROL, 66938LEDT (Oral Capsule) 1 (one) Capsule Capsule twice [...] days Quantity: 60 {Capsule} Refills: 0 Ordered:05-Jul-2011 Al ALBRIGHT Delisa Start [...] : 23-Jul-2011 End : 02-Aug-2011 Inactive MAXITROL, 3.5-23625-4.1 (Ophthalmic Ointment) apply to eye lids as [...] hs (50 MG) Inactive Comments:Dr. Hankins NYSTATIN, 392643WXME/ML (Mouth/Throat Suspension) 5cc Suspension 5 times daily [...] Quantity: 30 {Tablet} Refills: 0 Ordered:19-May-2018 Long DIRECTOR ORACLE RETAIL, Amelia L Start : 12-May-2012 End : 19-May-2018 Discontinued Comments:This order discontinued per [facility]. ZOFRAN ODT, 4MG (Oral Tablet Dispersible) qd prn nausea (4 MG) End : 08-Aug-2015 Discontinued Comments:[facility] Allergies and Adverse Reactions [...] w/ Contrast Result: Comments: See Note; NOTES: [facility] Cardiovascular Services [address] [place] [address] Echo Complete W/ Contrast 09/06/18 1002 MR#: [id number] Acct: [id number] Name: IFEOMA DÍAZ Rep #: [id number] : 1965 53 From: Boone Ch MD Attending Dr: Sangeetha Irvin DO Status: REG CLI Ordering Dr: Sangeetha Irvin DO Date: 09/06/18 Location: [facility] Sex: F C Admitted: Reason F [...] Dictated: 09/06/18 1002 Date Transcribed: 09/06/18 1534 Revenue Stamp Cutter: Signed 04-Sep-2018 CTA Chest W/WO Contrast Result: Comments: See Note; NOTES: [facility] Imaging Services [address] [place] [address] CTA Chest W/WO Contrast MR#: [id number] Acct: [id number] Name: IFEOMA ASHRAF Rep #: : 1965 F 53 From: Ziggy Santos MD PCP: Sangeetha Irvin DO Status: REG CLI Study: CTA Chest W/WO Contrast Date of Exam: 09/04/18 Exam# [id number] Ordering Dr: Sangeetha Irvin DO STUDY: CTA [...] Service support , CC: Sangeetha Irvin DO Revenue Stamp Cutter: Signed 14-Jul-2018 Chest PA and Lateral Result: Comments: See Note; NOTES: [facility] Imaging Services [address] [place] [address] Chest PA and Lateral MR#: [id number] Acct: [id number] Name: IFEOMA ASHRAF Rep #: [id number] : 1965 F 53 From: Dimitris Valderrama DO PCP: Sangeetha Irvin DO Status: REG CLI Study: Chest PA and Lateral Date of Exam: 07/14/18 Exam# [id number] Ordering Dr: Oscar Todd COMMUNICATIONS SPECIALIST-C STUDY: X-RAY CHEST REASON FOR EXAM: Female, [...] Dimitris Valderrama DO at 8:47 EDT Tel [phone], Service support , CC: NUNU Todd; Sangeetha Irvin DO Revenue Stamp Cutter: Signed 10-Jun-2018 Pacemaker Check Result: Comments: See Note; NOTES: [facility] [address] [place] [address] Pacemaker Check Date of Service: 06/09/18 0909 MR#: [id number] Acct: [id number] Name: IFEOMA ASHRAF Rep #: [id number] : 1965 From: Danica Pickering Age/Sex: 53/F Location: [facility] Status: Signed Billing Codes ICD Device Billing: ICD Dev Prog Eval, Single 06/09/18 0913 <Elec tronically signed by Danica Pickering > Date Danica Pickering 06/10/18 1406<Electronically signed by Boone Ch MD> Mahnazignluana Signat ure: Date (if applicable) Boone Ch MD CC: 08-Jun-2018 Cardiology Visit Report Result: Comments: See Note; NOTES: [facility] [address] [place] [address] OFFICE VISIT Date of Service: 05/31/18 MR#: [id number] Acct: [id number] Name: IFEOMA ASHRAF Rep #: [id number] : 1965 Provider: NUNU Todd Age/Sex: 53/F Location: [facility] Status: Signed with Addenda ADDENDUM by NUNU Todd on 06/01/18 at 0746 Addendum entered and electronic ally signed by LUPE Black 06/01/18 07:46: Patient's outside records from [facility] admission from 04/07/2018 to 04/27/2018 were [...] ultimately discharged home with requested follow-up with [facility] neurology or local neurolo gist in approximately [...] defibrillator (ICD) Z95.810 Generator change 11/13 @ [facility] Dr. Galdino Shin - LUPE [...] prior to saving. Follow Up 6 Months (ENVIRONMENTAL SERVICES AIDE) 05/31/18 (GIUSEPPE) 06/01/18 0747 <Electronically signed by [...] ral regurgitation and tricuspid regurgitation. [facility] on March 08, 2018 after being found unresponsive in her bathroom. During this hospitalization she was found to have an acute left axillary and left brachial vein DVT and was started on Eliquis. She presented to [facility] emergency department in March 2018 for altered mental status. Her CT scan prior to ER visit showed possible hygroma versus subacute resolving subdural hematoma. She was transferred to [facility] for further evaluation. These records are [...] 05/31/18 Pulse Rate 100 Intake Visit Reasons: [facility] to [facility] to [facility] to [place] Allergies amitriptyline Adverse Reaction (Severe, Verified 05/31/18 [...] rter-defibrillator (ICD) Z95.810 Generator change 11/13 @ [facility] LUPE Chapman Pacemaker check [...] prior to saving. Follow Up 6 Months (ENVIRONMENTAL SERVICES AIDE) 05/31/18 (GIUSEPPE) Coding Level of Care Code [...] Visit Report Result: Comments: See Note; NOTES: [facility] Oncology [address] [place], [place] [address]k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 She had [...] stem cell transplant in February [address] [facility] with complete remission. She [facility] on [facility] follow [facility]. - [...] Chronic Code Visit Office Visits / Consults: 93121 OV L3 Est 1325 <Electronically signed by Simeon Gresham MD> Date Simeon Gresham MD Cosigner Signature: Date (if applicable) CC: 26-May-2018 Venous Duplex Upper Extremity Result: Comments: See Note; NOTES: [facility] Cardiovascular Services [address] [place] [address] Venous Duplex US, Unilateral 05/25/18 0903 MR#: [id number] Acct: [id number] Name: IFEOMA SILVA Rep #: [id number] : 1965 53 From: Juanjo Russo MD Attending Dr: Sangeetha Irvin DO Status: REG CLI Ordering Dr: Sangeetha Irvin DO Date: 05/25/18 Location: [facility] Sex: F C Admitted: R mingo For [...] Date Dictated: 05/25/18902 Date Transcribed: 05/26/18 163 Revenue Stamp Cutter: Signed 06-Apr-2018 Chest 1 View (Portable) Result: Comments: See Note; NOTES: [facility] Imaging Services [address] [place] [address] Chest 1 View (Portable) MR#: [id number] Acct: [id number] Name: IFEOMA ASHRAF Rep #: [id number] : 1965 F 53 From: Levy Lucas DO PCP: Sangeetha Irvin DO Status: PRE ER Study: Chest 1 View (Portable) Date of Exam: 04/06/18 Exam# [id number] Ordering Dr: Dejuan Bacon MD STUDY: X-RAY [...] , CC: Sangeetha Irvin DO; Dejuan Bacon Revenue Stamp Cutter: Signed 05-Apr-2018 Brain/Head without Contrast Result: Comments: See Note; NOTES: [facility] Imaging Services [address] [place] [address] Brain/Head without Contrast MR#: [id number] Acct: [id number] Name: IFEOMA ASHRAF Rep # : [id number] : 1965 F 53 From: Levy Lucas DO PCP: Sangeetha Irvin DO Status: REG CLI Study: Brain/Head without Contrast Date of Exam: 04/05/18 Exam# [id number] Ordering Dr: Oscar Bartlett MD STUDY : [...] 14:06 EDT Tel , Service support 1- [phone], N.B. : The above information has been verbally conveyed by Levy Lucas DO to connected , Covering Physician, on 04/05/2018 14:06:03 (ET). CC: Sangeetha Irvin DO; Oscar Bartlett MD Revenue Stamp Cutter: Signed 05-Apr-2018 Brain/Head without Contrast Result: Comments: See Note; NOTES: [facility] Imaging Services [address] [place] [address] Brain/Head without Contrast MR#: [id number] Acct: [id number] Name: IFEOMA ASHRAF Rep # : [id number] : 1965 F 53 From: Levy Lucas DO PCP: Sangeetha Irvin DO Status: REG CLI Study: Brain/Head without Contrast Date of Exam: 04/05/18 Exam# [id number] Ordering Dr: Oscar Bartlett MD STUDY : [...] 14:06 EDT Tel , Service support 1- [phone], N.B. : The above information has been verbally conveyed by Levy Lucas DO to connected , Covering Physician, on 04/05/2018 14:06:03 (ET). CC: Sangeetha Irvin DO; Oscar Bartlett MD Revenue Stamp Cutter: Signed 31-Mar-2018 Cardiology Visit Report Result: Comments: See Note; NOTES: [facility] [address] [place] [address] OFFICE VISIT Date of Service: 03/31/18 MR#: [id number] Acct: [id number] Name: Ifeoma Ashraf Rep #: [id number] : 1965 Provider: Boone Ch MD Age/Sex: 53/F Location: [facility] Status: Signed HPI HPI Chief Complaint: Follow-up [...] who presented to the emergency department at [facility] on 03/08/2018 aft er being found [...] care unit. She was eventually transferred to [facility]. 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 I would like to obtain a clutch assembler ry profile to be able to appropriately adjust any diuretics. At this juncture it may be prudent to add Lasix 40 mg a day to her current regimen. 2. Presence of implantable cardioverter-defibrillator (I CD) Z95.810 Generator change 11/13 @ [facility] Dr. Ahmadi Plan She [...] months. 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 (anchorman) Coding Level of Care Code Off vis,est,level [...] Flow Screening Result: Comments: See Note; NOTES: [facility] Cardiovascular Services [address] [place] [address] 11/22/17 0803 MR#: [id number] Acct: [id number] Name: IFEOMA ASHRAF Rep #: [id number] [...] Date Dictated: 11/22/17 0803 Date Transcribed: 11/22/171517 Revenue Stamp Cutter: Signed 18-Nov-2017 Office Visit Report Result: Comments: See Note; NOTES: [place] [address] [place] [address] OFFICE VISIT Date of Service: 11/17/17 MR#: [id number] Acct: [id number] Patient: IFEOMA ASHRAF Rep #: [id number] : 1965 Provider: Danica Pickering Age/Sex: 52/F [...] n office Interview Reason: scheduled follow up Broth Mixer: [employer] Name: Lan Mckeon VR Model: MD3537-11N Serial #: [id number] Implant Date: 11/10/17 Year(s): 0 Implant Physician: [...] and No drainage Bibiana ds Lead #1 Broth Mixer Lead 1: [employer] Model Lead 1: 7121Q/58 Serial# Lead 1: [id number] Date Implanted Lead 1: 10/10/09 Position Lead [...] Operative Report Result: Comments: See Note; NOTES: [facility] Medical Records Department [address] [place] [address] Operative Report 11/10/17 1148 MR#: [id number] Acct: [id number] Name: SALOME ASHRAF Rep #: [id number] : 1965 52 From: Lior Ahmadi MD PCP: Sangeetha Irvin DO Status: REG MAC Y Location: [facility] Operative Report Date of Procedure: 11/10/17 Preoperative diagnosis is device at end of life for normal battery depletion. Postoperative diagnosis same as above. After informed consent and IV antibiotics the patient was brought [facility] and the ski n over [...] chart documents provided by the device company human resources hr representative procedure summary. 11/10/17 1150 <Electronically signed by Lior Ahmadi MD > Date Lior Ahmadi MD CC: Sangeetha Irvin DO; Lior Ahmadi MD Signed 03-Nov-2017 Office Visit Report Result: Comments: See Note; NOTES: [facility] [address] [facility] [place] [address] OFFICE VISIT Date of Service: 11/03/17 MR#: [id number] Acct: [id number] Patient: IFEOMA ASHRAF Rep #: [id number] : 1965 Provider: Danica Pickering Age/Sex: 52/F Location: [facility] Status: Signed Comments Summary Comments: Written and [...] in office Interview Reason: routine follow up Broth Mixer: [employer] Name: Current VR Model: 1211-36Q ICD Serial #: [id number] Implant Date: 10/10/09 Year(s): 8 Implant Physician: [...] Model Lead 1: 7121Q/58 Serial# Lead 1: [id number] Date Implanted Lead 1: 10/10/09 Position Lead [...] Visit Report Result: Comments: See Note; NOTES: [facility] [address] [place] [address] OFFICE VISIT Date of Service: 11/03/17 MR#: [id number] Acct: [id number] Name: IFEOMA ASHRAF Rep #: [id number] : 1965 Provider: Boone Ch MD Age/Sex: 52/F Location: [facility] Status: Signed HPI HPI Details: IFEOMA ASHRAF, [...] 25 to 29 (25% per echo 03/11/2015) REPLACED BY [facility] Medical History Type 2 diabetes mellitus without [...] cardioverter/defibrillator (AICD) Z95.810 10/06/2009 @ [facility] Plan She is status post ICD implantation [...] was also being followed up at the [facility]. She is also on spironolactone [...] and Lateral Result: Comments: See Note; NOTES: [facility] Imaging Services [address] [place] [address] Chest PA and Lateral MR#: [id number] Acct: [id number] Name: IFEOMA ASHRAF Rep #: [id number] : 1965 F 52 From: Dimitris Valderrama DO PCP: Sangeetha Irvin DO Status: PRE [facility] Study: Chest PA and Lateral Date of Exam: 11/03/17 Exam# [id number] Ordering Dr: Boone Ch MD STUDY: X-RAY [...] Dimitris Valderrama DO at 18:21 EST Tel [phone], Se rvice support , CC: Boone Ch MD; Sangeetha Irvin DO Revenue Stamp Cutter: Signed 14-Oct-2017 Office Visit Report Result: Comments: See Note; NOTES: [facility] [address] [place] [address] [place] [address] OFFICE VISIT Date of Service: 10/12/17 MR#: [id number] Acct: [id number] Patient: IFEOMA ASHRAF Rep #: [id number] : 1965 Provider: Danica Pickering Age/Sex: 52/F Location: [facility] Status: Signed Comments Summary Comments: Single Chamber ICD Evaluation: Interrogation shows No VT/VF episodes since . No Alerts noted. Left pectoral pocket/incision w/o s/s of infection or erosion. Pt offers no cardiac complaints. Presenting rhythm shows Sinus Tachycardia @ 105 bpm. Left pectoral pocket/incision w/o s/s of infection or erosion. DUMP MOTORMAN=0%. Battery longevity approx 2.9 mos. At device check in June device showed longevity of 14 mos. D/T longevity decreasing quickly pt scheduled for ICD generator el gilliam with Dr. Ahmadi on 11/10/17 @ [facility]. Lead impedances, sensing and pace/sense threshold remain stable. No parameter changes made. Counters cleared. Pt scheduled for o.v and teaching on 11/03/17 and ICD g enerator change on 11/10/17. Device Device Date Interviewed: 10/12/17 Follow- up Location: in office Interview Reason: routine follow up Broth Mixer: 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 Model Lead 1: 7121Q/58 Serial# Lead 1: [id number] Date Implanted Lead 1: 10/10/09 Position Lead [...] IV Contrast Result: Comments: See Note; NOTES: [facility] Imaging Services [address] [place] [address] Abdomen WITH IV Contrast MR#: [id number] Acct: [id number] Name: IFEOMA ASHRAF Rep #: [id number] : 1965 F 52 From: Carl Vincent MD PCP: Sangeetha Irvin DO Status: REG CLI Study: Abdomen WITH IV Contrast Date of Exam: 06/15/17 Exam# [id number] Ordering Dr: Analisa Conway MD STUDY: CT [...] CC: Analisa Conway MD; Sangeetha Irvin DO Revenue Stamp Cutter: Signed 15-Jun-2017 Spine Cervical without Contras Result: Comments: See Note; NOTES: [facility] Imaging Services [address] [place] [address] Spine Cervical without Contras MR#: [id number] Acct: [id number] Name: MALULUANAIFEOMA p #: [id number] : 1965 F 52 From: Zev Mandujano MD PCP: Sangeetha Irvin DO Status: REG CLI Study: Spine Cervical without Contras Date of Exam: 06/15/17 Exam# [id number] Ordering Dr: Analisa Conway MD STUDY: CT [...] CC: Analisa Conway MD; Sangeetha Irvin DO Revenue Stamp Cutter: Signed 10-Feb-2017 Spine Lumbar without Contrast Result: Comments: See Note; NOTES: [facility] Imaging Services [facility] [place] [address] Verdana 4d Spine Lumbar without Contrast MR#: [id number] Acct: [id number] Name: MARISEL ASHRAF Rep #: [id number] : 1965 F 51 From: Brian Gill MD PCP: Fast DO,Sangeetha Status: REG CLI Study: Spine Lumbar without Contrast Date of Exam: 02/10/17 Exam# [id number] Ordering Dr: Analisa Carr i, MD STUDY: [...] CC: Analisa Conway MD; Sangeetha Irvin DO Revenue Stamp Cutter: Signed 20-Jan-2017 Liver Result: Comments: See Note; NOTES: [facility] Imaging Services [address] [place] [address] Verdana 4d Liver MR#: [id number] Acct: [id number] Name: IFEOMA ASHRAF Rep #: [id number] : 1965 F 51 From: Vincent Bui DO PCP: Sangeetha Irvin DO Status: REG CLI Study: Liver Date of Exam: 01/20/17 Exam# [id number] Ordering Dr: Sangeetha Irvin DO STUDY: ABDOMINAL [...] Vincent Bui DO at 23:43 EDT Tel [phone], Service support , CC: Sangeetha Irvin DO Revenue Stamp Cutter: Signed 20-Jan-2017 Thyroid Result: Comments: See Note; NOTES: [facility] Imaging Services [address] [place] [address] Verdana 4d Thyroid MR#: [id number] Acct: [id number] Name: IFEOMA ASHRAF Rep #: [id number] : 1965 F 51 From: Jin Rolon PCP: Sangeetha Irvin DO Status: REG CLI Study: Thyroid Date of Exam: 01/20/17 Exam# [id number] Ordering Dr: Sangeetha Irvin DO STUDY: THYROID [...] Service support , CC: Sangeetha Irvin DO Revenue Stamp Cutter: Signed 17-Nov-2016 Dexa Bone Density Study (HP) Result: Comments: See Note; NOTES: [facility] Imaging Services [address] [place] [address] Verdana 4d Dexa Bone Density Study (HP) MR#: [id number] Acct: [id number] Name: COL HARPAL ASHRAF Rep #: [id number] : 1965 F 51 From: Prashant Delgadillo MD PCP: Sangeetha Irvin DO Status: REG CLI Study: Dexa Bone Density Study (HP) Date of Exam: 11/17/16 Exam# [id number] Ordering Dr: Sangeetha Irvin DO STUDY: DUAL [...] Prashant Delgadillo MD at 10:52 EST Tel [phone], Service support [phone], CC: Sangeetha Irvin DO Revenue Stamp Cutter: Signed 17-Nov-2016 SCREENING MAMM (CAD), BILAT Result: Comments: See Note; NOTES: [facility] Imaging Services [address] [place] [address] Verdana 4d SCREENING MAMM (CAD), BILAT MR#: [id number] Acct: [id number] Name: SALOME ASHRAF Rep #: [id number] : 1965 F 51 From: Prashant Delgadillo MD PCP: Fast DO,Sangeetha Status: REG CLI Study: SCREENING MAMM (CAD), BILAT Date of Exam: 11/17/16 Exam# [id number] Ordering Dr: Gary Irvin DO MAMMOGRAPHY - [...] biopsy of a clinically suspiciou s abnormality. [id number] Electronically Signed: Prashant Delgadillo MD at 12:55 EST Tel [phone], Service support [phone], CC: Sangeetha Irvin DO Revenue Stamp Cutter: Signed 17-Nov-2016 SCREENING MAMM (CAD), BILAT Result: Comments: See Note; NOTES: [facility] Imaging Services [address] [place] [address] Verdana 4d SCREENING MAMM (CAD), BILAT MR#: [id number] Acct: [id number] Name: SALOME ASHRAF Rep #: [id number] : 1965 F 51 From: Prashant Delgadillo MD PCP: Sangeetha Irvin DO Status: REG CLI Study: SCREENING MAMM (CAD), BILAT Date of Exam: 11/17/16 Exam# [id number] Ordering Dr: Gary Irvin DO ADDENDUM by [...] delay biopsy of a clinically suspicious abnormality. [id number] Electronically Signed: Prashant Delgadillo MD at 13:07 EST Tel [phone], Service support [phone], 11/17/16 1315 Date cc: Sangeetha Irvin DO [...] delay biopsy of a clinically suspicious abnormality. [id number] Electronically Signed: Prashant Delgadillo MD at 12:55 EST Tel [phone], Ser vice support [phone], CC: Sangeetha Irvin DO Revenue Stamp Cutter: Signed 19-Dec-2015 Liver Result: Comments: See Note; NOTES: [facility] Imaging Services [address] [place] [address] Verdana 4d Liver MR#: [id number] Acct: [id number] Name: IFEOMA ASHRAF Rep #: [id number] : 1965 F 50 From: Ziggy Santos MD PCP: Sangeetha Irvin DO Status: REG CLI Study: Liver Date of Exam: 12/19/15 Exam# [id number] Ordering Dr: Sangeetha Irvin DO STUDY: ABDOMINAL [...] Service support , CC: Sangeetha Irvin DO Revenue Stamp Cutter: Signed 19-Dec-2015 Thyroid Result: Comments: See Note; NOTES: [facility] Imaging Services [address] [place] [address] Verdana 4d Thyroid MR#: [id number] Acct: [id number] Name: MARIOWAQASIFEOMA ep #: [id number] : 1965 F 50 From: Ziggy Santos MD PCP: Sangeetha Irvin DO Status: REG CLI Study: Thyroid Date of Exam: 12/19/15 Exam# [id number] Ordering Dr: Sangeetha Irvin DO STUDY: THYROID [...] Service support , CC: Sangeetha Irvin DO Revenue Stamp Cutter: Signed 14-Aug-2015 Bilat Scrn Digital AND CAD Result: Comments: See Note; NOTES: [facility] Imaging Services [address] [place] [address] Ver[place] 4d Bilat Scrn Digital AND CAD MR#: [id number] Acct: [id number] Name: IFEOMA ASHRAF Rep #: [id number] : 1965 F 50 From: Prashant Delgadillo MD PCP: Sangeetha Irvin DO Status: REG CLI Study: Bilat Scrn Digital AND CAD Date of Exam: 08/14/15 Exam# [id number] Order ing Dr: Sagneetha Irvin DO MAMMOGRAPHY - BILATERAL SCREENING REASON [...] Prashant Delgadillo MD at 10:49 EST Tel [phone], Service support [phone], CC: Sangeetha Irvin DO Revenue Stamp Cutter: Signed 10-Mar-2015 Emergency Department Summary Result: Comments: See Note; NOTES: [facility] Medical Records Department [address] [place] [address] Emergency Department Summary MR#: [id number] Acct: [id number] Name: IFEOMA RASMUSSEN Rep #: [id number] : 1965 49 From: Mayito Roldan DO PCP: Sangeetha Irvin DO Status: [facility] ER DATE OF SERVICE: 02/28/2015 [...] way. Mayito Roldan DO T: NTS JOB: [id number] 03/10/15 2329 <Electronically signed by Mayito Roldan DO> Date Mayito Roldan DO CC: Sangeetha Irvin DO Date Dictated: 02/28/15824 Date Transcribed: 02/28/15824 Revenue Stamp Cutter: Signed 02-Mar-2015 Emergency Department Summary Result: Comments: See Note; NOTES: [facility] Medical Records Department [address] [place] [address] Emergency Department Summary MR#: [id number] Acct: [id number] Name: IFEOMA RASMUSSEN Rep #: [id number] : 1965 49 From: Alejandro Lopez DO PCP: Sangeetha Irvin DO Status: [facility] ER DATE OF SERVICE: 02/28/2015 [...] The patient has plans to go to [facility] on General. I will give her local surgeon's name if she wants to speak with them or she can certainly also speak with Dr. Irvin. CLINICAL IMPRESSION: Biliary colic. Alejandro Lopez DO T: ROCK JOB: [id number] 03/02/15 0743 <Electronically signed by Alejandro Lopez DO> Date Alejandro Lopez DO CC: Sangeetha Irvin DO Date Dictated: 718 Date Transcribed: 02/28/15718 Revenue Stamp Cutter: Signed 28-Feb-2015 Discharge Instruction Result: Comments: See Note; NOTES: [facility] Medical Records Department [address] [place] [address] Discharge Instruction 02/28/15 0639 MR#: [id number] Acct: [id number] Name: IFEOMA ASHRAF Rep #: [id number] : 1965 49 From: Alejandro Lopez DO [...] problems, contact your doctor. Call [facility] ([phone]) or report to the closest Em ergency Room. Call 911 if necessary. 02/28/15 0640 <Electronically signed by Alejandro Lopez DO> Date Alejandro Lopez DO Cosign er Signature (If Indicated): Date CC: Sangeetha Irvin DO 28-Feb-2015 Gallbladder Result: Comments: See Note; NOTES: [facility] Imaging Services [address] [address] Ultrasound Report MR#: [id number] Acct: [id number] Name: IFEOMA ASHRAF Rep #: [id number] : 1965 F 49 From: Prashant Delgadillo MD PCP: Sangeetha Irvin DO Status: REG ER Study: Gallbladder Date of Exam: 02/28/15 Exam# [id number] Ordering Dr: Alejandro Lopez DO STUDY: ABDOM [...] Prashant Delgadillo MD at 8:15 EDT Tel [phone], Service support [phone], CC: Alejandro Lopez DO; Sangeetha Irvin DO Revenue Stamp Cutter: Signed 11-Feb-2015 Spine Cervical without Contras Result: Comments: See Note; NOTES: [facility] Imaging Services [address] [place] [address] CAT Scan Report MR#: [id number] Acct: [id number] Name: IFEOMA ASHRAF Rep #: [id number] : 1965 F 49 From: Prashant Delgadillo MD PCP: Sangeetha Irvin DO Status: REG CLI Study: Spine Cervical without Contras Date of Exam: 02/11/15 Exam# [id number] Ordering Dr: Analisa Conway MD STUDY: CT [...] Prashant Delgadillo MD at 9:49 EDT Tel [phone], Service support [phone], CC: Analisa Conway MD; Sangeetha Irvin DO Revenue Stamp Cutter: Signed 18-Jul-2014 Bilat Scrn Digital & CAD Result: Comments: See Note; NOTES: [facility] Imaging Services [address] [place] [address] Breast Imaging Report MR#: [id number] Acct: [id number] Name: IFEOMA ASHRAF Rep # : [id number] : 1965 F 49 From: Prashant Delgadillo MD PCP: Sangeetha Irvin DO Status: REG CLI Exam# [id number] Ordering Dr: Sangeetha Irvin DO MAMMOGRAPHY - [...] Prashant Delgadillo MD at 8:36 EDT Tel [phone], Servi ce support [phone], CC: Sangeetha Irvin DO Revenue Stamp Cutter: Signed 18-Jul-2014 Liver Result: Comments: See Note; NOTES: [facility] Imaging Services [address] [place] [address] Ultrasound Report MR#: [id number] Acct: [id number] Name: IFEOMA ASHRAF Rep #: : 1965 F 49 From: Prashant Delgadillo MD PCP: Sangeetha Irvin DO Status: REG CLI Study: Liver Date of Exam: 07/18/14 Exam# [id number] Ordering Dr: Sangeetha Irvin DO STUDY: ABDOMINAL [...] Prashant Delgadillo MD at 9:34 EDT Tel [phone], Service support [phone], CC: Sangeetha Irvin DO Revenue Stamp Cutter: Signed 18-Jul-2014 Thyroid Result: Comments: See Note; NOTES: [facility] Imaging Services [address] [place] [address] Ultrasound Report MR#: [id number] Acct: [id number] Name: MALULUANAIFEOMA Rep #: [id number] : 1965 F 49 From: Prashant Delgadillo MD PCP: Sangeetha Irvin DO Status: REG CLI Study: Thyroid Date of Exam: 07/18/14 Exam# [id number] Ordering Dr: Sangeetha Irvin DO STUDY: THYROID [...] Delgadillo MD at 8:41 EDT T el [phone], Service support [phone], CC: Sangeetha Irvin DO Revenue Stamp Cutter: Signed 05-Feb-2014 Brain/Head W/WO Contrast Result: Comments: See Note; NOTES: [facility] Imaging Services [address] [place], [place] [address] [place] [address] CAT Scan Report MR#: [id number] Acct: [id number] Name: IFEOMA ASHRAF Rep #: [id number] : 1965 F 48 From: Prashant Delgadillo MD PCP: Sangeetha Irvin DO Status: REG CLI Study: Brain/Head W/WO Contrast Date of Exam: 02/05/14 Exam# [id number] Ordering Dr: Sangeetha Irvin DO STUD Y: [...] Prashant Delgadillo MD at 9:19 EDT Tel [phone], Service support [phone], CC: Sangeetha Irvin DO Revenue Stamp Cutter: Signed Immunization Name Dates Details Influenza (3 years and up) on: 10-Jul-2008 Comments: injection given in left deltoid, pt tolerated welllot # [id number] Influenza (3 years and up) on: 09-Jul-2009 Comments: Lot #[id number]-right deltoidDose0.5mlgiven by Juventino Nye LPN Family History [...] Value Details :59 BNP,B-Type NATRIURETIC PEPTIDE Comments: [facility] [address]pmqrd[address] [facility] [address] [place], [place], [phone] B-TYPE JACKIE PEP 819.3 pg/mL (Abnormal) Range: 0-100 :59 CBC W/Diff, Automated Comments: [facility] [address] [place], [place], [address] Absolute Lymph 1.08 {X10_3/ul} (Normal) Range: 0.83-4.51 [...] 4.2-5.4 WBC 7.5 K/mm3 (Normal) Range: 4.4-11.0 31-Udy-909271:59 Comprehensive Metabolic Profil Comments: 'TROP' Serial specimen #1, #2, #3, or #4: [address] [place] [address] [address] [place], [place], [address] GAP 8 (Normal) Range: 5-15 CO2 29.0 [...] criteria.Please note revised GLUCOSE reference range /02/2018. 51-Wiz-656420:59 CPK Total, Creatine Kinase Comments: 'TROP' Serial specimen #1, #2, #3, or #4: [address] [place] [address] [place], [address] CPK TOTAL 30 U/L (Normal) Range: 26-192 96-Opq-619865:59 D-Dimer Quantitative (DVT/PE) Comments: [facility] [address] [place], [address] D-DIMER QUANT 1.44 {FEU/ug/m} (Abnormal) Range: 0.27-0.49 Comments: CRITICAL VALUE VERIFIED. CALLED TO OKXDOPWL02/10/18 1440 Francois Quinn.RESULTS READ BACK BY SAME .D-Dimer ELEVATED (>0.49): Additional studies and clinicalassessments are indicated to conclude di agnosis of:Deep Vein Thrombosis (DVT) or Pulmonary Embolism (PE) 94-Itl-143200:59 Troponin-I Comments: 'TROP' Serial specimen #1, #2, #3, or #4: [address] [place] [address] [place], [place], [address] TROPONIN-I 0.030 ng/mL (Normal) Comments: TROPONIN-I EXPECTED VALUES <0.045 Negative 0.045 - 0.590 Consistent with Cardiac Damage > OR = 0.600 Critical Value Not every elevated troponin is indicative of SC. T hesevalues should be used with clinical judgement in examiningthe patient's clinical picture for diagnosis. To establisha diagnosis of SC versus myocardial injury, there must be ademonstrated rise and/ or fall in the troponin values, inaddition to ischemic symptoms, EKG changes, new regionalwall motion abnormality, and/or angiographical evidence. PLEASE NOTE: REFERENCE RANGES EDITED 02/06/1829-Aug-20185-Zez-502126:44 ANCA Comments: Is Patient Fasting? [facility] (refer to report for specific site)refer to report for address and phone number Atypical pANCA <1:20 {titer} (Normal) Comments: The atypical pANCA pattern has been observed in asignificant percentage of patients with ulcerative colitis,primary sclerosing cholangitis and autoimmune hepatitis.Performed at: [facility] [id number] Director: Omar Hood PhD, Phone: [phone] PERINUCLEAR Ab <1:20 {titer} (Normal) Comments: The presence of positive fluorescence exhibiting P-ANCA orC-ANCA patterns alone is not specific for the diagnosis ofWegener's Granulomatosis (WG) or microscopic polyangiitis.Decisions about treatment sh ould not be based solely onANCA IFA results. The International ANCA Group Consensusrecommends follow up testing of positive sera with both MN-3 and MPO- ANCA enzyme immunoassays. As many as 5% serumsamp les are positive only by EIA. Ref. AM J Clin Qznfqw0456;111:507-513. CYTOPLASMIC Ab <1:20 {titer} (Normal) 8-Iyi-588461:44 ANTINUCLEAR ANTIBODIES DIRECT Comments: [facility] (refer to report for specific site)refer to report for address and phone number LASHA-DIRECT Negative (Normal) Comments: Performed at: [facility] [id number] Director: Omar Hood PhD, Phone: [phone] 5-Nrc-821715:44 CPK Total, Creatine Kinase Comments: [facility] [address] [place], [place], [phone] CPK TOTAL 33 U/L (Normal) Range: 26-192 9-Utm-102128:44 Hemoglobin A1c Comments: [facility] [address] [place], [place], [phone] HGB A1C 10.6 % (Abnormal) Range: 4.2-6.3 0-Hcl-215093:44 PRANEETH AND PE, Random UR Comments: Is Patient Fasting? [facility] (refer to report for specific site)refer to report for address and phone number NOTE Comment (Normal) Comments: Protein electrophoresis scan will follow via computer,mail, or shoe stock associate delivery. PRANEETH RESULT,U Comment (Normal) Comments: No monoclonality detected. M-SPIKE,UR% Not Observed % (Normal) GAMMA GLOB,U 5.5 % (Normal) BETA GLOB,U 14.2 % (Normal) VMCTM-5-DJQA,U 10.8 % (Normal) DQINZ-8-JJMP,U 7.6 % (Normal) ALBUMIN,U 62.0 % (Normal) PROTEIN,UR 27.8 mg/dL (Normal) 0-Cki-056021:44 PRANEETH + Protein Elect, Serum Comments: Is Patient Fasting? [facility] (refer to report for specific site)refer to report for address and phone number NOTE: Comment (Normal) Comments: Protein electrophoresis scan will follow via computer,mail, or shoe stock associate delivery. PRANEETH RESULT,S Comment (Normal) Comments: No monoclonality detected. A/G RATIO 1.2 (Normal) Range: 0.7-1.7 GLOBULIN, TOTAL 2.9 g/dL (Normal) Range: 2.2-3.9 M-SPIKE g/dL (Normal) Comments: Not Observed GAMMA GLOBULIN 0.6 g/dL (Normal) Range: 0.4-1.8 BETA GLOBULIN 1.1 g/dL (Normal) Range: 0.7-1.3 STWTY-7-OTGZ 0.9 g/dL (Normal) Range: 0.4-1.0 SVWJA-3-ZXBE 0.3 g/dL (Normal) Range: 0.0-0.4 ALBUMIN 3.4 g/dL (Normal) Range: 2.9-4.4 IMMUNOGL M 103 mg/dL (Normal) Range: 26-217 IMMUNO A 69 mg/dL (Abnormal) Range: 87-352 IMMUNO G 538 mg/dL (Abnormal) Range: 700-1600 PROTEIN,TOTAL 6.3 g/dL (Normal) Range: 6.0-8.5 4-Bwd-128947:44 Rheumatoid Factor Comments: [facility] [address] [place], [address] RHEUMATOID FAC < 10.0 {IU/mL} (Normal) 5-Zhq-776326:44 Sjogren's Antibodies A/B Comments: [facility] (refer to report for specific site)refer to report for address and phone number Anti-SS-B < 0.2 {AI} (Normal) Range: 0.0-0.9 Anti-SS-A < 0.2 {AI} (Normal) Range: 0.0-0.9 :44 Thyroid Stim Hormone (TSH) Comments: [facility] [address] [place], [phone] TSH 2.71 {uIU/mL} (Normal) Range: 0.358-3.74 9-Avi-008583:44 Vitamin B12 1303 pg/mL (Abnormal) Comments: [facility] [address] [place], [address] Range: 211-911 :44 Vitamin D,25 Hydroxy Comments: [facility] [address] [place], [address] Vitamin D 25-OH 62.4 ng/mL (Normal) Range: 29.95-100.01 Comments: Vitamin D 25(OH) Status Range Deficiency <20 ng/mL (50nmol/L) Insuffciency 20 - 30 ng/mL (50 - 75 nmol/L) Sufficiency 30 - 100 ng/mL (75 - 250 nmol/L) Toxicity >100 ng/mL (>250 nmol/L) 0-Sda-091106:06 Basic Metabolic Profile (BMP) Comments: PLEASE FAX TO DR. CANTU [phone] [facility] [address] [place], [phone] GAP 12 (Normal) Range: 5-15 CO2 26.0 [...] A.D.A. criteria.Please note revised GLUCOSE reference range sqfzvrlii26/02/2018. 04-Muw-88452:22 CBC W/Diff, Automated Comments: BMP TO DULCE TIMMONS.CBCD, TSH, B12 TO DR. SANGEETHA IRVIN.[facility] [address] [place], [address] Absolute Lymph 1.16 {X10_3/ul} (Normal) Range: 0.83-4.51 [...] pg/mL (Normal) Comments: BMP TO DULCE TODD [facility].CBCD, TSH, B12 TO DR. SANGEETHA IRVIN.[facility] [address] [place], [address] Range: 211-911 23-Hza-50908:20 Basic Metabolic Profile (BMP) Comments: BMP TO DULCE TODD [facility].CBCD, TSH, B12 TO DR. SANGEETHA IRVIN.[facility] [address] [place], [place], [address] GAP 9 (Normal) Range: 5-15 CO2 27.0 [...] A.D.A. criteria.Please note revised GLUCOSE reference range cdrtolvyg51/02/2018. 03-Tgf-62382:20 Thyroid Stim Hormone (TSH) Comments: BMP TO DULCE TODD [facility].CBCD, TSH, B12 TO DR. SANGEETHA IRVIN.[facility] [address] [place], [place], [address] TSH 4.09 {uIU/mL} (Abnormal) Range: 0.358-3.74 36-Aaa-174994:23 Basic Metabolic Profile (BMP) Comments: [facility] [address] [place], [address] GAP 7 (Normal) Range: 5-15 CO2 30.0 [...] A.D.A. criteria.Please note revised GLUCOSE reference range spkpjjagn64/02/2018. 99-Ixa-503273:23 BNP,B-Type NATRIURETIC PEPTIDE Comments: [facility] [address] [place], [address] B-TYPE JACKIE PEP 892.7 pg/mL (Abnormal) Range: 0-100 72-Val-592789:23 CBC W/Diff, Automated Comments: [facility] [address] [place], [address] Absolute Lymph 1.23 {X10_3/ul} (Normal) Range: 0.83-4.51 [...] 4.2-5.4 WBC 7.2 K/mm3 (Normal) Range: 4.4-11.0 57-Wir-996494:41 CBC W/Diff, Automated Comments: Reason for Laboratory Test .[facility] [address] [place], [place], [address] Absolute Lymph 0.85 {X10_3/ul} (Normal) Range: 0.83-4.51 [...] 4.2-5.4 WBC 5.7 K/mm3 (Normal) Range: 4.4-11.0 27-Ugz-427294:41 Comprehensive Metabolic Profil Comments: Reason for Laboratory Test .Serial Specimen #1, #2 or #3? [facility] [address]mf[address] [place], [place], [address] GAP 8 (Normal) Range: 5-15 CO2 28.0 [...] criteria.Please note revised GLUCOSE reference range /02/2018. 08-Hbo-098475:41 LDH 224 U/L (Normal) Comments: Reason for Laboratory Test .Serial Specimen #1, #2 or #3? 1[facility] [address] [place], [place], [address] Range: 84-246 1-Iay-034307:41 URINE GENESIS CULTURE-IDENTIFICATN Comments: add to urine in lab; PATIENT NOT FASTINGPERFORMED BY: [facility] Aulxak6203 [facility] [id number] Information: SRC:JUAN ([id number]) Result 1 ENTEAE (Abnormal) Comments: Enterobacter aerogenes1,000 [...] S Urine Final report Culture,Comprehensi (Abnormal) ve 30-Zov-18057:46 AFP, Tumor Marker Comments: Is Patient ? [facility] (refer to report for specific site)refer to report for address and phone number AFP TUMOR 2253 10.0 ng/mL (Abnormal) Range: 0.0-8.3 Comments: Khanh ECLIA methodologyPerformed at: CB [facility] [address] [place], [place] [id number] Director: Omar Hood PhD, Phone: [phone] 02-Gmm-82910:46 CBC W/Diff, Automated Comments: [facility] [address] [place], [place], [address] Absolute Lymph 0.95 {X10_3/ul} (Normal) Range: 0.83-4.51 [...] ADD T3F T4F TO BLOOD FROM 05-25-18 [facility] 5 [facility] [address] [place], [place], [address] GAP 9 (Normal) Range: 5-15 CO2 28.0 [...] A.D.A. criteria.Please note revised GLUCOSE reference range noemyotan14/02/2018. :46 Digoxin Level Comments: [facility] [address] [place], [place], [address] DIG 0.71 ng/mL (Abnormal) Range: 0.80-2.00 :46 Free T3 Comments: PLEASE ADD T3F T4F TO BLOOD FROM 05-25-[address] [place], [place], [address] FREE T3 3.2 pg/mL (Normal) Range: 2.18-3.98 :46 Hemoglobin A1c Comments: [facility] [address] [place], [place], [address] HGB A1C 5.4 % (Normal) Range: 4.2-6.3 :46 Lipid Profile Comments: PLEASE ADD T3F T4F TO BLOOD FROM 05-25-18 [facility] 5 [facility] [address] [place], [place], [address] VLDL 22 mg/dL (Normal) Range: 5-40 LDL [...] High Risk :46 Microalb:Creat Ratio,Random UR Comments: [facility] [address] [place], [place], [address] MALB:CREAT 7.8 {mg/g_CRE} (Normal) MICROALBUMIN,UR 10.9 mg/L (Normal) UR CREAT 139.00 mg/dL (Normal) :46 T4 Free Direct Comments: PLEASE ADD T3F T4F TO BLOOD FROM 05-25-18G2 5 [facility] [address] [place], [address] T4 FREE DIRECT 1.11 ng/dL (Normal) Range: 0.76-1.46 :46 Thyroid Stim Hormone (TSH) Comments: PLEASE ADD T3F T4F TO BLOOD FROM 05-25-18 THG2 5 [facility] [address] [place], [address] TSH 0.31 {uIU/mL} (Abnormal) Range: 0.358-3.74 :46 Urinalysis, Complete Comments: How was Urine Obtained? CLEAN [facility] [address] [place], [address] MUCUS, URINE 0 SEEN [...] :46 Vitamin B12 368 pg/mL (Normal) Comments: [facility] [address] [place], [address] Range: 211-911 :46 Vitamin D,25 Hydroxy Comments: [facility] [address]vq50[address] [place], [address] Vitamin D 25-OH 64.5 ng/mL (Normal) Range: 29.95-100.01 Comments: Vitamin D 25(OH) Status Range Deficiency <20 ng/mL (50nmol/L) Insuffciency 20 - 30 ng/mL (50 - 75 nmol/L) Sufficiency 30 - 100 ng/mL (75 - 250 nmol/L) Toxicity >100 ng/mL (>250 nmol/L) 66-Bvq-438375:52 Urinalysis, Complete Comments: Order Date: 04/06/18Has pt arrived? YHow was Urine Obtained? [facility] [address] [place], [place], [address] HYALINE CAST 5-10 SEEN {/lpf} (Normal) Range: [...] (Normal) CLARITY Cloudy (Normal) COLOR Yellow (Normal) 07-Tcr-993622:30 CBC W/Diff, Automated Comments: [facility] [address] [place], [address] OVALOCYTE RARE (Normal) MACROCYTE 1+ [...] 4.2-5.4 WBC 9.1 K/mm3 (Normal) Range: 4.4-11.0 76-Jaz-627720:30 Comprehensive Metabolic Profil Comments: [facility] [address] [place], [place], [address] GAP 12 (Normal) Range: 5-15 CO2 30.0 [...] Comments: Please note revised GLUCOSE reference range awotktmjl64/02/2018. 05-Tct-831003:30 Lactic Acid Comments: Yes/No query for Sepsis Lactate Rule [facility] [address] [place], [place], [address] LACTIC ACID 6.7 mmol/L (Abnormal) Range: 0.4-2.0 Comments: Critical Result(s) Called Lisa RIVERA at: 20:23: by: BRITTANY TORRES 20-Sgf-218185:30 Partial Thromboplast Time Comments: [facility] [address] [place], [address] PTT 41.3 s (Abnormal) Range: 24.1-36.2 98-Ltd-324956:30 Prothrombin Time w/INR Comments: [place] [address] [facility] [place], [address] INR 2.3 (Normal) PROTIME 25.6 s (Abnormal) Range: 11.7-14.9 52-Siy-224776:30 Troponin-I Comments: [facility] [address] [place], [address] TROPONIN-I 0.046 ng/mL (Abnormal) Comments: TROPONIN-I EXPECTED VALUES <0.045 Negative 0.045 - 0.590 Consistent with Cardiac Damage > OR = 0.600 Critical Value Not every elevated troponin is indicative of SC. T hesevalues should be used with clinical judgement in examiningthe patient's clinical picture for diagnosis. To establisha diagnosis of SC versus myocardial injury, there must be ademonstrated rise and/ or fall in the troponin values, inaddition to ischemic symptoms, EKG changes, new regionalwall motion abnormality, and/or angiographical evidence. PLEASE NOTE: REFERENCE RANGES EDITED 02/06/1805-Apr-201868-Bxm-941439:08 Ammonia Comments: [facility] [address] [place], [place], [address] AMMONIA 20.0 umol/L (Normal) Range: 11-32 79-Eqx-674669:08 CBC-Complete Blood Cnt No Diff Comments: [facility] [address] [place], [place], [address] MPV 10.6 fL (Normal) Range: 6.2-12.0 PLT [...] 4.2-5.4 WBC 6.6 K/mm3 (Normal) Range: 4.4-11.0 74-Tki-505382:08 Comprehensive Metabolic Profil Comments: [facility] [address] [place], [place], [address] GAP 9 (Normal) Range: 5-15 CO2 35.0 [...] Comments: Please note revised GLUCOSE reference range leqqmulql07/02/2018. 14-Uvs-945345:08 Differential Comment Comments: [facility] [address] [place], [place], [address] SMEAR COMMENT COMMENT (Normal) Comments: SLIDE SCANNED - 1+ ANISO NOTED. 20-Yfr-67476:55 Urinalysis, Complete Comments: How was Urine Obtained? [facility] [address]qlw[address] [place], [address] AMORPHOUS 2+ (Normal) HYALINE CAST 5-10 SEEN [...] (Normal) :55 Urine Drug Screen (VISTA) Comments: [facility] [address] [place], [address] TO BE CONFIRMED (Normal) Comments: [...] USE TESTMNEMONIC: UTCA :59 Bedside Glucose Comments: [facility] LaboratoryPoint of [address]go[address] [place] [address] BEDSIDE GLU 169 mg/dL (Abnormal) Range: 70-110 Comments: MANAGEMENT OF PATIENT CARE PER NURSING PROTOCOL :35 Basic Metabolic Profile (BMP) Comments: [facility] [address] [place], [place], [address] GAP 16 (Abnormal) Range: 5-15 CO2 15.0 mmol/L (Abnormal) Range: 21.0-32.0 CL 104 mmol/L (Normal) Range: 98-107 K 6.2 mmol/L (Abnormal) Range: 3.5-5.1 Comments: Critical Result(s) Called at: 01:06:28 03/08/2018 by:ANSLEY STANFORD,TABLE GAMES SUPERVISOR NA 135 mmol/L (Abnormal) Range: 136-145 CA [...] criteria.Please note revised GLUCOSE reference range /02/2018. 80-Gld-831337:59 Acetaminophen (Tylenol) Level Comments: [facility] [address] [place], [place], [address] ACETAMINOPHEN 4.9 ug/mL (Abnormal) Range: 10.0-30.0 Comments: Slight Icterus, Result may be falsely decreased. 87-Npf-774910:59 Acetone Serum Comments: [facility] [address] [place], [address] ACETONE SERUM NEGATIVE (Normal) 74-Gpe-417624:59 Alcohol, Blood (Medical)-Serum Comments: [facility] [address] [place], [address] SERUM ETOH 8.0 mg/dL (Normal) Comments: The serum:whole blood ethanol ratio is approximately 1.14and varies slightly with hematocrit.Medical Alcohol reference interval and critical value innon-tolerant individuals; 50 - 100 Impairment 100 Intoxication 100 - 250 Severe Poisoning 250 - 400 Deep/possible fatal coma :59 Digoxin Level Comments: [facility] [address] [place], [address] DIG 0.32 ng/mL (Abnormal) Range: 0.80-2.00 28-Apy-323022:59 Lactic Acid Comments: Yes/No query for Sepsis Lactate Rule [place] [address] [place], [address] LACTIC ACID 12.4 mmol/L (Abnormal) Range: 0.4-2.0 Comments: Critical Result(s) Called at: 00:52:58 03/08/2018 by:ANSLEY OWENSTABLE GAMES SUPERVISOR 56-Ysm-042268:59 Partial Thromboplast Time Comments: [place] [address] [place], [address] PTT 33.7 s (Normal) Range: 24.1-36.2 :59 Prothrombin Time w/INR Comments: [place] [address] [place], [address] INR 2.4 (Normal) PROTIME 26.4 s (Abnormal) Range: 11.7-14.9 :59 Salicylate Comments: [address] [place], [address] SALICYLATE < 1.7 mg/dL (Abnormal) Range: 2.8-20.0 Comments: Slight Icterus, Result may be falsely decreased. :02 Blood Gases by [facility] Comments: [facility] LaboratoryPoint of [address] [place] [address] SO2 ISTAT 99 % (Normal) Range: [...] Radial (Normal) BLD GAS TYPE ART (Normal) 24-Jja-806123:52 Bedside Glucose Comments: [facility] LaboratoryPoint of [address] [place] [address] BEDSIDE GLU 214 mg/dL (Abnormal) Range: 70-110 Comments: MANAGEMENT OF PATIENT CARE PER NURSING PROTOCOL 86-Eaj-909145:37 Basic Metabolic Profile (BMP) Comments: [facility] [address] [place], [address] GAP 19 (Abnormal) Range: 5-15 [...] A.D.A. criteria.Please note revised GLUCOSE reference range hjemzqlxl32/02/2018. 47-Mff-928976:37 CBC W/Diff, Automated Comments: [facility] [address]cu[address] [place], [place], [address] CRENATED RBC 1+ (Normal) ANISO 1+ (Normal) [...] 4.2-5.4 WBC 5.5 K/mm3 (Normal) Range: 4.4-11.0 50-Qui-199517:37 Lipase Comments: [facility] [address]kn[address] [place], [address] LIPASE 86 U/L (Normal) Range: 73-393 50-Mix-676634:37 Liver Profile Comments: [facility] [address] [place], [address] D BILI 1.07 mg/dL (Abnormal) Range: 0.00-0.30 T BILI 2.40 mg/dL (Abnormal) Range: 0.20-1.00 ALT 120 U/L (Abnormal) Range: 13-56 ALK P 94 U/L (Normal) Range: 45-117 AST 149 U/L (Abnormal) Range: 15-37 Comments: Moderate Hemolysis, Result may be falsely increased. GLOB 2.9 g/dL (Normal) Range: 2.2-4.2 ALB 3.0 g/dL (Abnormal) Range: 3.2-5.0 T PROT 5.9 g/dL (Abnormal) Range: 6.4-8.2 57-Zyx-542411:37 Magnesium Comments: [facility] [address] [place], [address] MG 2.0 mg/dL (Normal) Range: 1.6-2.6 Comments: Moderate Hemolysis, Result may be falsely increased. 88-Apa-923776:37 Troponin-I Comments: [facility] [address] [place], [place], [address] TROPONIN-I 0.081 ng/mL (Abnormal) Comments: TROPONIN-I EXPECTED VALUES <0.045 Negative 0.045 - 0.590 Consistent with Cardiac Damage > OR = 0.600 Critical Value Not every elevated troponin is indicative of SC. T hesevalues should be used with clinical judgement in examiningthe patient's clinical picture for diagnosis. To establisha diagnosis of SC versus myocardial injury, there must be ademonstrated rise and/ or fall in the troponin values, inaddition to ischemic symptoms, EKG changes, new regionalwall motion abnormality, and/or angiographical evidence. PLEASE NOTE: REFERENCE RANGES EDITED 02/06/1824-Feb-20180-Mgw-961287:21 CMV ANTIBODY (95295) Comments: today; PATIENT NOT FASTINGPERFORMED BY: [facility]Holy [facility] CenterXujrxc0013 [facility] [id number] Cytomegalovirus (CMV) Ab, IgG <0.60 U/mL (Normal) Range: 0.00-0.59 Comments: Negative <0.60 Equivocal 0.60 - 0.69 Positive >0.69 2-Cto-528873:21 HEPATITIS PANEL (15372) Comments: today; PATIENT NOT FASTINGPERFORMED BY: [facility]6370 [facility] [id number] Hep C Virus Ab <0.1 {s/co_ratio} (Normal) Range: 0.0-0.9 Comments: Negative: < 0.8 Indeterminate: 0.8 - 0.9 Positive: > 0.9 . The CDC recommends that a positive HCV antibody result be followed up with a HCV Nucleic Acid Amplification test (427136). Hep B Core Ab, IgM Negative (Normal) HBsAg Screen Negative (Normal) Hep A Ab, IgM Negative (Normal) 0-Gai-035070:21 EBV Panel (51671) Comments: today; PATIENT NOT FASTINGPERFORMED BY: [facility]6370 [facility] [id number] Interpretation: SPRCS (Normal) Comments: EBV Interpretation Chart [...] <36.0 Equivocal 36.0 - 43.9 Positive >43.9 02-Ijq-396344:19 CBC W/Diff, Automated Comments: Order Date: 02/23/18Order Info: [id number] - CBCDOrder Info: [id number] - [facility] [address]ujjdduhg[address] [place], [place], [address] MACROCYTE 1+ (Normal) ANISO RARE (Normal) Absolute [...] 4.2-5.4 WBC 6.9 K/mm3 (Normal) Range: 4.4-11.0 72-Dvu-710810:19 Comprehensive Metabolic Profil Comments: Order Date: 02/23/18Order Info: 0786-1 - CMPOrder Info: 1798-8 - AMYOrder Info: 3040-3 - LIPASEFire[facility] [address] [place], [address] GAP 11 (Normal) Range: 5-15 CO2 25.0 [...] A.D.A. criteria.Please note revised GLUCOSE reference range nrtqaeobw57/02/2018. 40-Bfn-114582:19 Erythrocyte Sed Rate Comments: Order Date: 02/23/18Order Info: 0184-1 - CBCDOrder Info: 16335-6 - [facility] [address]oagidl[address] [place], [address] SED RATE 16 mm/h (Normal) Range: 0-30 33-Rls-960006:19 Lipase (99203) Comments: Order Date: 02/23/18Order Info: 0786- 1 - CMPOrder Info: 1798-8 - AMYOrder Info: 3040-3 - LIPASEFirelands [facility] [address]actpedr[address] [place], [address] LIPASE 92 U/L (Normal) Range: 73-393 87-Jlb-491311:19 Amylase (91595) Comments: Order Date: 02/23/18Order Info: 0786- 1 - CMPOrder Info: 1798-8 - AMYOrder Info: 3040-3 - LIPASEFirelands [facility] [address]fjmfgzx[address] [place], [address] ARIAN 27 U/L (Normal) Range: 25-115 4-Kax-753458:15 Amylase Comments: CMP, CBCD IS FOR DR ORONA IS FOR [facility] Unokwxkauf[address] [place], [address] ARIAN 29 U/L (Normal) Range: 25-115 8-Jrn-805525:15 CBC W/Diff, Automated Comments: CMP, CBCD IS FOR DR ORONA IS FOR [facility] Rkvwkrnzul[address] [place], [address] ANISO 1+ (Normal) Absolute Lymph 0.41 {X10_3/ul} [...] 4.2-5.4 WBC 5.3 K/mm3 (Normal) Range: 4.4-11.0 1-Gzs-972969:15 Comprehensive Metabolic Profil Comments: CMP, CBCD IS FOR DR COLÓNT IS FOR [facility] Jgbtoscbgd8777 [facility]. [place], [place], [address] GAP 9 (Normal) Range: 5-15 CO2 27.0 [...] A.D.A. criteria.Please note revised GLUCOSE reference range qaapnojlw59/02/2018. 6-Mqi-063291:15 Digoxin Level Comments: CMP, CBCD IS FOR DR ORONA IS FOR [facility] [address]nuhavsumk[address] [place], [place], [address] DIG 0.92 ng/mL (Normal) Range: 0.80-2.00 4-Izq-749047:15 Lipase Comments: [facility], CBCD IS FOR DR ORONA IS FOR [facility] Bhaxvxhijf[address] [place], [place], [address] LIPASE 101 U/L (Normal) Range: 73-393 1-Mye-860608:15 Lipid Profile Comments: [facility], CBCD IS FOR DR ORONA IS FOR [facility] Thrlerxzzj[address] [place], [place], [address] VLDL 15 mg/dL (Normal) Range: 5-40 LDL [...] 200-240 mg/dL Borderline >240 mg/dL High Risk 9-Rmx-175760:15 Magnesium Comments: CMP, CBCD IS FOR DR ORONA IS FOR [facility] [address] [place], [address] MG 1.8 mg/dL (Normal) Range: 1.6-2.6 3-Rxl-374398:15 Microalb:Creat Ratio,Random UR Comments: CMP, CBCD IS FOR DR ORONA IS FOR [facility] [address]vbtr[address] [place], [address] MALB:CREAT 34.3 {mg/g_CRE} (Abnormal) MICROALBUMIN,UR 58.6 mg/L (Normal) UR CREAT 171.00 mg/dL (Normal) 2-Dkh-488443:15 Thyroid Stim Hormone (TSH) Comments: CMP, CBCD IS FOR DR ORONA IS FOR [facility] [address]ekpkodgek[address] [place], [address] TSH 1.84 {uIU/mL} (Normal) Range: 0.358-3.74 6-Pxj-059451:15 Vitamin B12 383 pg/mL (Normal) Comments: CMP, CBCD IS FOR DR ORONA IS FOR [facility] [address]otjyizhyr[address] [place], [address] Range: 211-911 4-Xct-035445:15 Vitamin D,25 Hydroxy Comments: CMP, CBCD IS FOR DR ORONA IS FOR [facility] [address]ezokzrudu[address] [place], [address] Vitamin D 25-OH 72.0 ng/mL (Normal) Range: 29.95-100.01 Comments: Vitamin D 25(OH) Status Range Deficiency <20 ng/mL (50nmol/L) Insuffciency 20 - 30 ng/mL (50 - 75 nmol/L) Sufficiency 30 - 100 ng/mL (75 - 250 nmol/L) Toxicity >100 ng/mL (>250 nmol/L) 34-Lqa-696788:14 Blood Glucose , Office (52450) Blood Glucose , Office 137 (Normal) 77-Xoj-211483:14 HgA1C , Office (93746) HgA1C , Office 6.1 % (Normal) Range: 4.6 - 7.1 :35 CBC W/Diff, Automated Comments: [facility] [address]extyy[address] [place], [place], [address] Absolute Lymph 1.30 {X10_3/ul} (Normal) Range: 0.83-4.51 [...] Metabolic Profil Comments: Reason for Laboratory Test [facility] Inwemwcmty[address] [place], [address] GAP 8 (Normal) Range: 5-15 CO2 31.0 mmol/L (Normal) Range: 21.0-32.0 CL 99 mmol/L (Normal) Range: 98-107 K 3.4 mmol/L (Abnormal) Range: 3.5-5.1 NA 138 mmol/L (Normal) Range: 136-145 T BILI 0.70 mg/dL (Normal) Range: 0.20-1.00 ALT 27 U/L (Normal) Range: 13-56 Comments: Please note revised ALT reference range qldkxvpjo70/28/2018. ALK P 102 U/L (Normal) Range: 45-117 [...] A.D.A. criteria.Please note revised GLUCOSE reference range nywddpems96/02/2018. 63-Fke-31395:33 LDH 198 U/L (Normal) Comments: Reason for Laboratory Test OVSerial Specimen #1, #2 or #3? [facility] [address] [place], [address] Range: 84-246 35-Awq-858302:15 Culture, Urine Comments: [facility] [address] [place], [place], [address] CUUR See Note (Normal) Comments: VERBAL ORDER DR. IRVIN'S OFFICE Urine CultureORGANISM 1: Mixed Gram Positive OrganismsColony Count 11,000-25,000MIX CULTURE Mixed contaminants. Submit a new specimen if indicated. 31-Ujj-605222:11 CBC W/Diff, Automated Comments: [facility] [address] [place], [place], [address] Absolute Lymph 1.34 {X10_3/ul} (Normal) Range: 0.83-4.51 [...] 4.2-5.4 WBC 5.4 K/mm3 (Normal) Range: 4.4-11.0 06-Gcx-525554:11 Comprehensive Metabolic Profil Comments: Comments: [facility] Enwapibxea8[address] [place], [address] GAP 7 (Normal) Range: 5-15 CO2 28.0 mmol/L (Normal) Range: 21.0-32.0 CL 100 mmol/L (Normal) Range: 98-107 K 3.9 mmol/L (Normal) Range: 3.5-5.1 NA 135 mmol/L (Abnormal) Range: 136-145 T BILI 0.70 mg/dL (Normal) Range: 0.20-1.00 ALT 31 U/L (Normal) Range: 13-56 Comments: Please note revised ALT reference range jleutnlmf41/28/2018. ALK P 110 U/L (Normal) Range: 45-117 [...] A.D.A. criteria.Please note revised GLUCOSE reference range vrwmxykyx59/02/2018. 49-Wrf-757211:10 Urinalysis, Complete Comments: ORDERED UACDR.JACINDA ORDERED CMP AND CBCDComments: clean catchComments: clean catchHow was Urine Obtained? MARKETING SEGMENT MANAGER TO SPECIFYFirelands Regional Medical Center South Campus [address] [place], [address] MUCUS, URINE RARE [...] (Normal) CLARITY Cloudy (Normal) COLOR Yellow (Normal) 2-Lgs-632829:42 ,Serum,hCG Quali. Comments: Comments: use blood in [facility] [address] [place], [address] HCGSQUAL NEGATIVE {Negative} (Normal) Range: 0-9 Nonpreg HCG Qual triggr 2 m[iU]/mL (Normal) 6-Uhk-714739:41 Basic Metabolic Profile (BMP) Comments: [facility] [address] [place], [address] GAP 10 (Normal) Range: 5-15 [...] A.D.A. criteria.Please note revised GLUCOSE reference range houizyqee98/02/2018. 9-Bbf-533947:41 CBC-Complete Blood Cnt No Diff Comments: [facility] [address] [place], [place], [address] MPV 9.6 fL (Normal) Range: 6.2-12.0 PLT [...] 4.2-5.4 WBC 8.7 K/mm3 (Normal) Range: 4.4-11.0 4-Eoh-713690:41 Prothrombin Time w/INR Comments: [facility] [address] [place], [place], [phone] INR 1.0 (Normal) PROTIME 12.9 s (Normal) Range: 11.7-14.9 03-Nov-20179:00 Culture, Urine Comments: [facility] Svbfljuofa9484 [facility]. [place], [place], [address] CUUR See Note (Normal) Comments: Urine CultureORGANISM [...] &lt ;=20 S(NF) indicates non-formulary drug at [facility]. Approval by Infectious Disease Specialist required before non- formulary drugs may be ordered and/or dispensed. :27 AFP, Tumor Marker Comments: Is Patient ? NPatient's Weight (LBS.): 124Number of Fetuses: 0[facility] (refer to report for specific site)refer to report for address and phone number AFP TUMOR 2253 6.8 ng/mL (Normal) Range: 0.0-8.3 Comments: [employer] ECLIA methodologyPerformed at: [facility] [address] [id number] Director: Omar Hood PhD, Phone: [phone] :[phone] CBC W/Diff, Automated Comments: [facility] [address] [place], [place], [address] Absolute Lymph 1.47 {X10_3/ul} (Normal) Range: 0.83-4.51 [...] 4.2-5.4 WBC 6.0 K/mm3 (Normal) Range: 4.4-11.0 48-Kas-53573:27 Comprehensive Metabolic Profil Comments: [facility] [address] [place], [place], [address] GAP 9 (Normal) Range: 5-15 CO2 28.0 [...] Range: 70-110 :27 Microalb:Creat Ratio,Random UR Comments: [facility] [address] [place], [place], [address] MALB:CREAT 17.4 {mg/g_CRE} (Normal) MICROALBUMIN,UR 37.5 mg/L (Normal) UR CREAT 215.00 mg/dL (Normal) :40 CBC W/Diff, Automated Comments: [facility] [address] [place], [place], [address] Absolute Lymph 1.60 {X10_3/ul} (Normal) Range: 0.83-4.51 [...] 4.2-5.4 WBC 10.9 K/mm3 (Normal) Range: 4.4-11.0 47-Vwh-80115:39 Comprehensive Metabolic Profil Comments: Order Date: 12/06/16Order Info: 0786-1 - *CMP Complete Metabolic PanelWCrystal Clinic Orthopedic Center [address]vtw[address] [place], [place], [address] GAP 10 (Normal) Range: 5-15 CO2 27.0 [...] per A.D.A. criteria. :15 Culture, Urine Comments: [facility] [address] [place], [address] CUUR See Note (Normal) Comments: [...] $ <=20 S(NF) indicates non-formulary drug at [facility]. Approval by Infectious Disease Specialist required before non-formulary drugs may be ordered and/or dispensed. :35 HgA1C , Office (82461) HgA1C , Office 6.5 % (Normal) Range: 4.6 - 7.1 :07 AFP, Tumor Marker Comments: Is Patient ? N[facility] (refer to report for specific site)refer to report for address and phone number AFP TUMOR 2253 8.5 ng/mL (Abnormal) Range: 0.0-8.3 Comments: [employer] ECLIA methodologyPerformed at: [employer] [facility] [address] [id number] Director: Omar Hood PhD, Phone: [phone] :[phone] CBC W/Diff, Automated Comments: [facility] [address] [place], [address] Absolute Lymph 1.17 {X10_3/ul} (Normal) [...] Range: 4.4-11.0 31-May-20179:07 Comprehensive Metabolic Profil Comments: [facility] [address] [place], [place], [address] GAP 9 (Normal) Range: 5-15 CO2 28.0 [...] the [place] Food and Drug Administration.Performed at: [place] [id number] [place], [place] [id number] Director: Zia Jarvis MD, Phone: [phone] INS RES/DIAB RK . (Normal) LDL SIZE [...] . (Normal) 31-May-20179:07 Vitamin D,25 Hydroxy Comments: [facility] [address]ud[address] [place], [address] Vitamin D 25-OH 61.8 ng/mL (Normal) Comments: Vitamin D 25(OH) Status Range Deficiency <20 ng/mL (50nmol/L) Insuffciency 20 - 30 ng/mL (50 - 75 nmol/L) Sufficiency 30 - 100 ng/mL (75 - 250 nmol/L) Toxicity >100 ng/mL (>250 nmol/L) :48 Liver Profile Comments: [facility] [address] [place], [address] D BILI 0.14 mg/dL (Normal) Range: 0.00-0.30 T BILI 0.50 mg/dL (Normal) Range: 0.20-1.00 ALT 57 U/L (Normal) Range: 12-78 ALK P 94 U/L (Normal) Range: 45-117 AST 40 U/L (Abnormal) Range: 15-37 GLOB 2.8 g/dL (Normal) Range: 2.3-3.5 ALB 3.9 g/dL (Normal) Range: 3.4-5.0 T PROT 6.7 g/dL (Normal) Range: 6.4-8.2 :45 Potassium Comments: [facility] [address] [place] [place], [address] K 4.3 mmol/L (Normal) Range: 3.5-5.1 :35 CBC W/Diff, Automated Comments: [address] [place], [place], [address] Absolute Lymph 1.24 {X10_3/ul} (Normal) Range: 0.83-4.51 [...] 4.2-5.4 WBC 3.6 K/mm3 (Abnormal) Range: 4.4-11.0 30-Jzm-10587:35 Comprehensive Metabolic Profil Comments: [facility] [address] [place], [address] GAP 10 (Normal) Range: 5-15 CO2 31.0 [...] ASPIRATION (SLIDES ONLY) See Note (Normal) Comments: [facility] [address] [place], [address] 0 Comments: Patient: IFEOMA ASHRAF : 1965 (52/F) Acct Num: [id number] Phys: Janelle KING,Alejandro Unit Num: [id number] Loc: LABSPEC Specimen: [id number] Received: 03/18/17 - 1127 Spec Ty pe: ASPIRATION TISSUES TISSUES: COMMENT Correlation with clinical, radiologic findings and appropriate follow up are necessary. CYTOLOGY GROSS Received are ten smears labeled wi th the patient's name and designated per the requisition as left thyroid FNA. Submitted for staining. / 03/18/17 TC:5 CPT: 50656 CYTOLOGY STUDY Slides are reviewed. The specimen [...] <signature on file> 01-Mar-20179:30 HEPATITIS C ANTIBODY (91772) Comments: PATIENT NOT FASTINGPERFORMED BY: [facility]6370 [facility] [id number] Hep C Virus Ab <0.1 {s/co_ratio} (Normal) Range: 0.0-0.9 Comments: Negative: < 0.8 Indeterminate: 0.8 - 0.9 Positive: > 0.9 . The CDC recommends that a positive HCV antibody result be followed up with a HCV Nucleic Acid Amplification test (657382). :30 Potassium Serum (05792) Comments: PATIENT NOT FASTINGPERFORMED BY: [facility]6370 [facility] [id number] Potassium, Serum 4.8 mmol/L (Normal) Range: 3.5-5.2 :29 HgA1C , Office (06304) HgA1C , Office 7.9 % (Abnormal) Range: 4.6 - 7.1 :53 CBC W/Diff, Automated Comments: [facility] [address] [place], [place], [address] Absolute Lymph 1.57 {X10_3/ul} (Normal) Range: 0.83-4.51 [...] 4.2-5.4 WBC 4.8 K/mm3 (Normal) Range: 4.4-11.0 14-Dut-79426:53 Comprehensive Metabolic Profil Comments: [facility] [address] [place], [address] GAP 11 (Normal) Range: 5-15 CO2 32.0 [...] per A.D.A. criteria. :53 Lipid Profile Comments: [facility] [address] [place], [address] VLDL 37 mg/dL (Normal) Range: 5-40 LDL [...] High Risk :53 Microalb:Creat Ratio,Random UR Comments: [facility] [address] [place], [address] MALB:CREAT 19.7 {mg/g_CRE} (Normal) MICROALBUMIN,UR 27.8 mg/L (Normal) UR CREAT 141.00 mg/dL (Normal) :53 Thyroid Stim Hormone (TSH) Comments: [facility] [address] [place], [address] TSH 2.39 {uIU/mL} (Normal) Range: 0.358-3.74 :53 Vitamin D,25 Hydroxy Comments: [facility] [address], [address] Vitamin D 25-OH 79.9 ng/mL (Normal) Comments: Vitamin D 25(OH) Status Range Deficiency <20 ng/mL (50nmol/L) Insuffciency 20 - 30 ng/mL (50 - 75 nmol/L) Sufficiency 30 - 100 ng/mL (75 - 250 nmol/L) Toxicity >100 ng/mL (>250 nmol/L) 96-Ltu-291960:08 CBC W/Diff, Automated Comments: [facility] [address] [place], [place], [address] Absolute Lymph 2.04 {X10_3/ul} (Normal) Range: 0.83-4.51 [...] 4.2-5.4 WBC 9.0 K/mm3 (Normal) Range: 4.4-11.0 04-Ngj-660688:08 Comprehensive Metabolic Profil Comments: [facility] [address] [place], [place], [address] GAP 9 (Normal) Range: 5-15 CO2 27.0 [...] 126 mg/dLsuggests DIABETES MELLITUS per A.D.A. criteria. 09-Iof-254335:00 Culture, Urine Comments: [facility] [address] [place], [address] CUUR See Note (Normal) Comments: Urine CultureORGANISM 1: Mixed Gram Positive OrganismsColony Count >100,000MIX CULTURE Mixed contaminants. Submit a new specimen if indicated. 8-Osc-670668:25 CBC W/Diff, Auto - EPLAB Comments: At [facility] Outpatient [facility] Medical Oncologypatients receive CBC w/auto Differential ONLY. Physicianwill place an order for a manual differential or Pathologistreview at his discretion. [facility]. [address] [place] [address] EMPLOYEE RELATIONS MANAGER: MATEO CATSANEDA DO PH:[phone] Regional Medical Center South Campus [address] [place], [address] Absolute Lymph 1.42 {X10_3/uL} (Normal) Range: [...] 4.2-5.4 WBC 6.3 K/mm3 (Normal) Range: 4.4-11.0 7-Lwo-844687:25 Comprehensive Metabolic Profil Comments: Order Date: 06/07/16Order Date: 16Serial Specimen #1, #2 or #3? 1[facility] [address]xkw[address] [place], [address] GAP 11 (Normal) Range: 5-15 CO2 [...] 200 mg/dLsuggests DIABETES MELLITUS per A.D.A. criteria. 7-Tqs-313494:25 LDH 208 U/L (Normal) Comments: Order Date: 06/07/16Order Date: 16Serial Specimen #1, #2 or #3? [address] [place] [address] [address] [facility]. [place], [place], [address] Range: 84-246 6-Xwp-853971:25 Uric Acid Comments: Order Date: 06/07/16Order Date: 16Serial Specimen #1, #2 or #3? [address] [place] [address] [address] [facility] [place], [place], [address] URIC 3.8 mg/dL (Normal) Range: 2.6-6.0 Comments: The drugs N-Acetylcysteine and Metamizole may falsely deressthis assay. :10 HgA1C , Office (10415) HgA1C , Office 8.0 % (Abnormal) Range: 4.6 - 7.1 :10 Blood Glucose , Office (54193) Blood Glucose , Office 223 (Normal) :24 AFP, Tumor Marker Comments: Is Patient ? N[facility] (refer to report for specific site)refer to report for address and phone number AFP TUMOR 2253 8.5 ng/mL (Abnormal) Range: 0.0-8.3 Comments: [employer] ECLIA methodologyPerformed at: [employer] [facility] [place] [id number] Director: Omar Hood PhD, Phone: [phone] :[phone] CBC W/Diff, Automated Comments: [facility] [address] [place], [place], [address] Absolute Lymph 1.35 {X10_3/ul} (Normal) Range: 0.83-4.51 [...] 4.2-5.4 WBC 4.1 K/mm3 (Abnormal) Range: 4.4-11.0 90-Iyr-83281:24 Comprehensive Metabolic Profil Comments: [facility] [address] [place], [place], [address] GAP 9 (Normal) Range: 5-15 CO2 27.0 [...] 126 mg/dLsuggests DIABETES MELLITUS per A.D.A. criteria. 90-Uxc-39542:24 NMR Lipoprofile Comments: [facility] (refer to report for specific site)refer to [...] the [place] Food and Drug Administration.Performed at: [facility] n[address] [place], [place] [id number] Director: Zia Jarvis MD, Phone: [phone] INS RES/DIAB RK . (Normal) LDL SIZE [...] mg/dL (Normal) Range: 100-199 LIPIDS . (Normal) 60-Qlr-323370:53 CBC W/Diff, Automated Comments: [facility] [address] [place], [place], [address] Absolute Lymph 1.41 {X10_3/ul} (Normal) Range: 0.83-4.51 [...] 4.2-5.4 WBC 12.2 K/mm3 (Abnormal) Range: 4.4-11.0 75-Ojn-015387:53 Comprehensive Metabolic Profil Comments: [facility] [address] [place], [place], [address] GAP 13 (Normal) Range: 5-15 CO2 24.0 [...] A.D.A. criteria. :42 CBC W/Diff, Automated Comments: [facility] [address] [place], [place], [address] Absolute Lymph 1.92 {X10_3/ul} (Normal) Range: 0.83-4.51 [...] Range: 4.4-11.0 :42 Comprehensive Metabolic Profil Comments: [facility] [address]xyxxcqp[address] [place], [place], [address] GAP 11 (Normal) Range: 5-15 CO2 25.0 [...] :55 Magnesium Comments: Order Date: 06/07/16Order Date: 06/07/16[facility] [address]uy[address] [place], [place], [address] MG 2.0 mg/dL (Normal) Range: 1.8-2.4 :57 CBC W/Diff, Auto - EPLAB Comments: At [facility] Outpatient [facility] Medical Oncologypatients receive CBC w/auto Differential ONLY. Physicianwill place an order for a manual differential or Pathologistreview at his discretion. [facility] OUTPATIENT [facility]. [address] [place] [address] [address] EMPLOYEE RELATIONS MANAGER: MATEO CASTANEDA DO PH:[phone] Regional Medical Center South Campus [address]fe[address] [place], [address] Absolute Lymph 1.38 {X10_3/uL} (Normal) [...] Profil Comments: Order Date: 06/07/16OV Order #: [id number] Specimen #1, #2 or #3? 1 [id number] [address]wvzhl[address] [place], [place], [address] GAP 13 (Normal) Range: 5-15 CO2 24.0 [...] (Normal) Comments: Order Date: 06/07/16 Order #: [id number] Specimen #1, #2 or #3? [id number] [place] [address] [place], [address] Range: 84-246 :56 Magnesium Comments: Order Date: 06/07/16 Order #: [id number] Specimen #1, #2 or #3? [id number] [place] [address] [place], [address] MG 1.5 mg/dL (Abnormal) Range: 1.8-2.4 :56 Uric Acid Comments: Order Date: 06/07/16 Order #: [id number] Specimen #1, #2 or #3? [address] [place] [address] [place], [place], [address] URIC 4.8 mg/dL (Normal) Range: 2.6-6.0 Comments: The drugs N-Acetylcysteine and Metamizole may falsely deressthis assay. :30 Liver Profile Comments: [facility] [address]yrevkb[address] [place], [place], [address] D BILI 0.13 mg/dL (Normal) Range: 0.00-0.30 T BILI 0.40 mg/dL (Normal) Range: 0.20-1.00 ALT 60 U/L (Normal) Range: 12-78 ALK P 126 U/L (Normal) Range: 50-136 AST 37 U/L (Normal) Range: 15-37 GLOB 2.7 g/dL (Normal) Range: 2.3-3.5 ALB 3.4 g/dL (Normal) Range: 3.4-5.0 T PROT 6.1 g/dL (Abnormal) Range: 6.4-8.2 :33 CBC W/AUTO DIFF WBC Comments: PATIENT NOT FASTINGPERFORMED BY: [facility] Khyyxr4717 [facility] [id number] Information: NURSE DRAW (18605) Immature Grans (Abs) 0.0 {x10E3/uL} (Normal) Range: [...] COMPREHENSIVE Comments: PATIENT NOT FASTINGPERFORMED BY: [facility] Gfmagq9981 [facility] [id number] (78948) ALT (SGPT) 41 [iU]/L (Abnormal) Range: 0-32 [...] (Abnormal) Range: 65-99 :09 HgA1C , Office (67380) HgA1C , Office 7.0 % (Normal) Range: 4.6 - 7.1 :14 AFP, Tumor Marker Comments: Is Patient ? [facility] (refer to report for specific site)refer to report for address and phone number AFP TUMOR 2253 7.7 ng/mL (Normal) Range: 0.0-8.3 Comments: [employer] ECLIA methodologyPerformed at: [facility] [place] [id number] Director: Omar Hood PhD, Phone: [phone] :14 CBC W/Diff, Automated Comments: [facility] [address] [place], [place], [address] ; will review on 05/17 Absolute Lymph [...] 4.2-5.4 WBC 4.3 K/mm3 (Abnormal) Range: 4.4-11.0 15-Lcl-52865:14 Comprehensive Metabolic Profil Comments: [facility] [address]vhz[address] [place], [address] GAP 7 (Normal) Range: 5-15 CO2 28.0 [...] per A.D.A. criteria. :14 Lipid Profile Comments: [facility] [address] [place], [address] VLDL 36 mg/dL (Normal) Range: 5-40 LDL [...] High Risk :14 Microalb:Creat Ratio,Random UR Comments: [facility] [address] [place], [address] ; will review on 05/17 MALB:CREAT 14.6 {mg/g_CRE} (Normal) MICROALBUMIN,UR 23.4 mg/L (Normal) UR CREAT 160.00 mg/dL (Normal) :14 Thyroid Stim Hormone (TSH) Comments: [facility] [address]wmm[address] [place], [address] TSH 1.89 {uIU/mL} (Normal) Range: 0.358-3.74 :14 Vitamin D,25 Hydroxy Comments: [facility] [address]gkp[address] [place], [address] ; will review on 05/17 Vitamin D 25-OH 53.2 ng/mL (Normal) Comments: Vitamin D 25(OH) Status Range Deficiency <20 ng/mL (50nmol/L) Insuffciency 20 - 30 ng/mL (50 - 75 nmol/L) Sufficiency 30 - 100 ng/mL (75 - 250 nmol/L) Toxicity >100 ng/mL (>250 nmol/L) :23 CBC W/Diff, Automated Comments: [facility] [address]okit[address] [place], [place], [address] Absolute Lymph 1.65 {X10_3/ul} (Normal) Range: 0.83-4.51 [...] Range: 4.4-11.0 :23 Comprehensive Metabolic Profil Comments: [facility] [address]zzl[address] [place], [place], [address] GAP 9 (Normal) Range: 5-15 CO2 30.0 [...] 126 mg/dLsuggests DIABETES MELLITUS per A.D.A. criteria. 03-Bys-509798:07 HgA1C , Office (01053) HgA1C , Office 8.5 % (Abnormal) Range: 4.6 - 7.1 :15 CBC W/Diff, Automated Comments: [facility] [address]htntrq[address] [place], [place], [address] Absolute Lymph 1.76 {X10_3/ul} (Normal) Range: 0.83-4.51 [...] 4.2-5.4 WBC 6.7 K/mm3 (Normal) Range: 4.4-11.0 04-Xil-72534:15 Comprehensive Metabolic Profil Comments: [facility] Vqcgacwmbu8[address] [place], [place], [address] GAP 13 (Normal) Range: 5-15 CO2 23.0 [...] 200 mg/dLsuggests DIABETES MELLITUS per A.D.A. criteria. 06-Yzt-40412:15 Lipid Profile Comments: [facility] Bjcqobxcdn8789 [facility]. [place], [place], [address] VLDL 45 mg/dL (Abnormal) Range: 5-40 LDL [...] High Risk :15 Vitamin D,25 Hydroxy Comments: [facility] Cqtchvoqef9975 [facility]. [place], [place], [address] Vitamin D 25-OH 28.8 ng/mL (Normal) Comments: Vitamin D 25(OH) Status Range Deficiency <20 ng/mL (50nmol/L) Insuffciency 20 - 30 ng/mL (50 - 75 nmol/L) Sufficiency 30 - 100 ng/mL (75 - 250 nmol/L) Toxicity >100 ng/mL (>250 nmol/L); ADDENDA: non-emergent till apt :35 CBC W/Diff, Automated Comments: [facility] [address] [place], [place], [address] Absolute Lymph 1.26 {X10_3/ul} (Normal) Range: 0.83-4.51 [...] Range: 4.4-11.0 :35 Comprehensive Metabolic Profil Comments: [facility] [address] [place], [place], [address] GAP 14 (Normal) Range: 5-15 CO2 26.0 [...] 200 mg/dLsuggests DIABETES MELLITUS per A.D.A. criteria. 83-Xmh-79668:0 ASPIRATION (SLIDES ONLY) See Note (Normal) Comments: [facility] [address]aoc[address] [place], [place], [phone] 0 Comments: Patient: IFEOMA ASHRAF : 1965 (50/F) Acct Num: [id number] Phys: Janelle KING,Alejandro Unit Num: [id number] Loc: LABSPEC Specimen: [id number] Received: 01/06/16 112 Spec Ty pe: ASPIRATION TISSUES TISSUES: COMMENT Correlation with clinical, radiologic findings and appropriate follow up are necessary. CYTOLOGY GROSS Received are 10 smears labeled wit h the patient's name and designated per the requisition as fine needle aspiration left thyroid. Submitted for staining. 01/06/16 TC:5 CPT:52779 CYTOLOGY STUDY Slides are reviewed. The spe [...] Signed Toni Yepez 01/07/16 <signature on file> 6-Akc-791723:29 CBC W/Diff, Auto - EPLAB Comments: At [facility] Out[facility] Medical Oncologypatients receive CBC w/auto Differential ONLY. Physicianwill place an order for a manual differential or Pathologistreview at his discretion. [facility] OUTPATIENT [facility]. [address] [place] [address] [place] [address] EMPLOYEE RELATIONS MANAGER: MATEO CASTANEDA DO PH:[phone] Regional Medical Center South Campus [address]jvi[address] [place], [place], [address] Absolute Lymph 1.49 {X10_3/uL} (Normal) Range: 0.83-4.51 [...] 4.2-5.4 WBC 4.6 K/mm3 (Normal) Range: 4.4-11.0 9-Zoj-583527:28 Comprehensive Metabolic Profil Comments: Serial Specimen #1, #2 or #3? 1[facility] [address]vigrd[address] [place], [place], [address] GAP 8 (Normal) Range: 5-15 CO2 26.0 [...] Comments: Serial Specimen #1, #2 or #3? [address] [place] [address] L[address]ffj[address] [place], [address]) Range: 84-246 9-Kjc-108422:28 Magnesium Comments: Serial Specimen #1, #2 or #3? [address] [place] [address] Acazlizxne[address] [place], [address] MG 1.6 mg/dL (Abnormal) Range: 1.8-2.4 :28 Uric Acid Comments: Serial Specimen #1, #2 or #3? [address] [place] [address] [address]lpozlyn[address] [place], [address] URIC 4.8 mg/dL (Normal) Range: 2.6-6.0 26-Nov-20159:36 Miscellaneous Lab Procedure Comments: Comments: [id number] URINE TOX,RUN LOWEST TESTTest(s) Ordered: [id number] URINE TOX,RUN LOWEST TESTFirelands Regional Medical Center South Campus [address]fqqhzzdry[address] [place] [place], [place], [address] [facility] Comments: [id number] 6+OXYCODONE-BUND (ng/mL)DRUG RESULT SCREEN CUTOFF____ Amphetamines,Urine Negat LAB (Normal) scott ng/mL 1000Amphetamine test includes Amphetamine and Methamphetamine.Barbiturates Negative ng/mL 200Benzodiazepines Negative ng/mL 200Cannabinoid TEST Negative ng/mL 20Cocaine (Metab) Negative ng/mL 300Opiates Positive ng/mL 300 Opiates test includes Codeine, Morphine, Hydromorphone, [place] codone.Please Note:Confirmation performed by Mass SpectrometryCodeine NegativeMorphine NegativeHydromorphone NegativeHydrocodone Positive Hydrocodone Confirm 1950 ng/mL 300Oxycodone/Oxymorphone,Urine Negative ng/mL 300 Test includes Oxydodone and Oxymorphone. TESTI NG PERFORMED AT [facility]. ORIGINAL REPORT ON FILE IN LAB CONTAINS ADDITIONAL TEST SITE INFORMATION. :36 Urine Drug Screen (VISTA) Comments: Comments: [id number] URINE TOX,RUN LOWEST TESTList of Drugs Taken or Suspected? UNKNOWNWCrystal Clinic Orthopedic Center Krlcirseyv95[address], [place], [address] ; ordered by Basali THC NEGATIVE (Normal) [...] TESTING MUST BE ORDERED SEPARATELY. USE TESTMNEMONIC: [facility] 69-Rws-578385:20 HgA1C , Office (76292) HgA1C , Office 7.3 % (Abnormal) Range: 4.6 - 7.1 :13 AFP, Tumor Marker Comments: Is Patient ? [facility] (refer to report for specific site)refer to report for address and phone number AFP TUMOR 2253 6.4 ng/mL (Normal) Range: 0.0-8.3 Comments: Khanh ECLIA methodologyPerformed at: CB - [facility] Bnmytk2353 [place], [place] [id number] Director: Omar Hood PhD, Phone: [phone] :13 CBC W/Diff, Automated Comments: [facility] [address]ljy[address] [place], [place], [address] Absolute Lymph 1.59 {X10_3/ul} (Normal) Range: 0.83-4.51 [...] Range: 4.4-11.0 :13 Comprehensive Metabolic Profil Comments: [facility] Ifgnfgpqam[address] [place], [place], [address] GAP 10 (Normal) Range: 5-15 CO2 24.0 [...] per A.D.A. criteria. :13 Lipid Profile Comments: [facility] [address]ypje[address] [place], [place], [address] ; non-emergent and pt has a f/u [...] High Risk :13 Microalb:Creat Ratio,Random UR Comments: [facility] [address]qbhh[address] [place], [address] MALB:CREAT 17.0 {mg/g_CRE} (Normal) MICROALBUMIN,UR 43.7 mg/L (Normal) UR CREAT 257.00 mg/dL (Normal) :13 Thyroid Stim Hormone (TSH) Comments: [facility] [address] [place], [address] TSH 1.82 {uIU/mL} (Normal) Range: 0.358-3.74 :13 Vitamin D,25 Hydroxy Comments: [facility] [address]bpel[address] [place], [place], [address] ; will review at 11/10 appt Vitamin D 25-OH 39.8 ng/mL (Normal) Comments: Vitamin D 25(OH) Status Range Deficiency <20 ng/mL (50nmol/L) Insuffciency 20 - 30 ng/mL (50 - 75 nmol/L) Sufficiency 30 - 100 ng/mL (75 - 250 nmol/L) Toxicity >100 ng/mL (>250 nmol/L) :40 CBC W/Diff, Automated Comments: [facility] Cyxpjgdake[address] [place], [address] Absolute Lymph 1.47 {X10_3/ul} (Normal) [...] 4.2-5.4 WBC 4.7 K/mm3 (Normal) Range: 4.4-11.0 03-Ywx-03306:40 Comprehensive Metabolic Profil Comments: [facility] [address]im[address]ke[address] [place], [place], [address] GAP 13 (Normal) Range: 5-15 CO2 24.0 [...] per A.D.A. criteria. :49 HgA1C , Office (50215) HgA1C , Office 7.8 % (Abnormal) Range: 4.6 - 7.1 69-Giy-414366:09 CBC W/Diff, Automated Comments: [facility] [address]tmpsdwdy[address] [place], [address] Absolute Lymph 1.07 {X10_3/ul} (Normal) Range: 0.83-4.51 [...] 4.2-5.4 WBC 5.3 K/mm3 (Normal) Range: 4.4-11.0 32-Xlx-625622:09 Comprehensive Metabolic Profil Comments: [facility] Rnzjabhwsb[address] [place], [place], [address] GAP 7 (Normal) Range: 5-15 CO2 28.0 [...] 200 mg/dLsuggests DIABETES MELLITUS per A.D.A. criteria. 5-Hom-119249:42 CBC W/Diff, Automated Comments: At [facility] Outpatient [facility] Medical Oncologypatients receive CBC w/auto Differential ONLY. Physicianwill place an order for a manual differential or Pathologistreview at his discretion. [facility]. [address] [place] [address] [place] [address] EMPLOYEE RELATIONS MANAGER: MATEO CASTANEDA DO PH:[phone] performed at:[facility] [address] [place], [place] [address] Absolute Lymph 1.60 {X10_3/ul} (Normal) Range: 0.83-4.51 [...] 4.2-5.4 WBC 7.0 K/mm3 (Normal) Range: 4.4-11.0 6-Cql-436917:42 Comprehensive Metabolic Profil Comments: Serial Specimen #1, #2 or #3? 1Test performed at:[facility] [address]cthdzwiep60[address] [place] [address] GAP 9 (Normal) Range: 5-15 CO2 25.0 [...] Comments: Please note revised CREATININE reference range akfjzrlto32/22/2015. BUN 20 mg/dL (Abnormal) Range: 7-18 GLU 118 mg/dL (Abnormal) Range: 70-110 Comments: Fasting Glucose result from 110 to <126 mg/dLsuggests IMPAIRED HOMEOSTASIS per A.D.A. criteria. 9-Esm-404659:42 LDH 133 U/L (Normal) Comments: Serial Specimen #1, #2 or #3? 1Test performed at:[facility] [address] [place] [address] Range: 84-246 5-Ghj-106756:42 Uric Acid Comments: Serial Specimen #1, #2 or #3? 1Test performed at:[facility] Jbxkdmnnfx[address] [place] [address] URIC 4.6 mg/dL (Normal) Range: 2.6-6.0 :02 CBC W/Diff, Automated Comments: Test performed at:[facility] [address]ccvqaixe[address] [place] [address] ; handled by vicki Absolute Lymph 1.23 [...] 4.2-5.4 WBC 4.1 K/mm3 (Abnormal) Range: 4.4-11.0 8-Yrl-026082:02 Comprehensive Metabolic Profil Comments: Test performed at:[facility] [address]uxw[address] [place], [place] [address] GAP 12 (Normal) Range: 5-15 CO2 23.0 [...] Comments: Please note revised CREATININE reference range huvnnejjf96/22/2015. BUN 11 mg/dL (Normal) Range: 7-18 GLU 214 mg/dL (Abnormal) Range: 70-110 Comments: Glucose result greater than or equal to 200 mg/dLsuggests DIABETES MELLITUS per A.D.A. criteria. 13-Ojr-318841:49 VITAMIN B-12 (CYANOCOBALAMIN) Comments: PATIENT NOT FASTINGPERFORMED BY: LabCoHoly Name Medical CenterLsiemw6105 [facility] [id number] (58366) Vitamin B12 464 pg/mL (Normal) Range: 211-946 :49 Vitamin D Hydroxy (75200) Comments: PATIENT NOT FASTINGPERFORMED BY: [facility] Qoufjb6841 [facility] [id number] Vitamin D, 25-Hydroxy 11.5 ng/mL (Abnormal) Range: 30.0-100.0 Comments: Vitamin D deficiency has been defined by the [place] ofMedicine and an Endocrine Society practice guideline as alevel of serum 25-OH vitamin D less than 20 ng/mL (1,2).The Endocrine Society went on to further define vitamin Dinsufficiency as a level between 21 and 29 ng/mL (2).1. IOM ([place] of Medicine). 2010. Dietary reference intakes for calcium and D. [place]: The National Academies Press.2. Sami MF, Sophie MOORE, Xiomara LARES, et al. Evaluation, treatment, and prevention of vitamin D deficiency: an Endocrine Society clinical practice guideline. JCEM. 2010; 96(7):1911-30. :49 CBC W/AUTO DIFF WBC Comments: PATIENT NOT FASTINGPERFORMED BY: [facility] Dwaybg0654 [facility] [id number] Information: [id number] (45312) Immature Grans (Abs) 0.0 {x10E3/uL} (Normal) Range: [...] 3.77-5.28 WBC 6.1 {x10E3/uL} (Normal) Range: 3.4-10.8 45-Sbx-044389:28 URINE GENESIS CULTURE-NITA COL Comments: PATIENT NOT FASTINGPERFORMED BY: [facility] Xbgaui2504 [facility] [id number] Information: SRC:URC [id number] COUNT (44650) Antimicrobial MIHEAD (Normal) Comments: S = Susceptible; [...] Imipenem Meropenem Urine Final report (Abnormal) Culture,Comprehensive 92-Oep-392420:24 Urinalysis, Office (70478) UA - LEUKOCYTE ESTERASE Trace (Normal) UA - NITRITE Negative (Normal) URINE UROBILINGN NITA TIMED Normal mg/dL (Normal) UA - PROTEIN 30 mg/dL (Normal) UA - PH 6 (Abnormal) UA - BLOOD Negative (Normal) UA - SPECIFIC GRAVITY 1.030 (Abnormal) UA - KETONES Moderate mg/dL (Normal) UA - BILIRUBIN Small (Normal) UA - GLUCOSE Negative (Normal) :54 Bedside Glucose Comments: Test performed at:[facility] Hfr[address]dbkwnr67[address] [place], [place] [address] BEDSIDE GLU 129 mg/dL (Abnormal) Range: 70-110 Comments: MANAGEMENT OF PATIENT CARE PER NURSING PROTOCOL :47 Urinalysis, Office (30173) UA - LEUKOCYTE ESTERASE Trace (Normal) UA - NITRITE Negative (Normal) URINE UROBILINGN NITA TIMED 2 mg/dL (Normal) UA - PROTEIN 300 mg/dL (Normal) UA - PH 6.0 (Normal) UA - BLOOD Hemolyzed Large (Normal) UA - SPECIFIC GRAVITY 1.030 (Abnormal) UA - KETONES 15 mg/dL (Abnormal) UA - BILIRUBIN Moderate (Normal) UA - GLUCOSE Negative (Normal) 48-Xhq-815218:57 Basic Metabolic Profile (BMP) Comments: Test performed at:[facility] [address] [place] [address] GAP 11 (Normal) Range: 5-15 CO2 27.0 [...] 126 mg/dLsuggests DIABETES MELLITUS per A.D.A. criteria. 33-Sog-463221:57 Digoxin Level Comments: Test performed at:[facility] Ngforpupfd65[address] [place] [address] DIG 1.17 ng/mL (Normal) Range: 0.80-2.00 61-Vat-358332:57 Hemoglobin A1c Comments: Test performed at:[facility] J[address]av[address]yr[address] [place] [address] HGB A1C 7.0 % (Abnormal) Range: 4.2-6.3 36-Jcg-073893:57 Thyroid Stim Hormone (TSH) Comments: Test performed at:[facility] I[address]zyf[address] [place] [address] TSH 0.89 {uIU/mL} (Normal) Range: 0.358-3.74 5-Smg-060909:17 Urine Culture,Comprehensive Comments: PATIENT NOT FASTINGPERFORMED BY: [facility] Phjkgf8729 [facility] [id number] Information: SRC:[facility] [id number] Result 1 BETAGB (Abnormal) Comments: Beta hemolytic [...] 02/28/15How was Urine Obtained? CLEAN CATCHTest performed at:[facility] Awbrmssowl8396 [place], [place] [address] AMORPHOUS 1+ URATE (Normal) MUCUS, URINE 1+ [...] :55 CBC W/Diff, Automated Comments: Test performed at:[facility] Qpsuxvclfp4970 [place], [place] [address] Absolute Lymph 1.29 {X10_3/ul} (Normal) Range: 0.83-4.51 [...] :55 Comprehensive Metabolic Profil Comments: Test performed at:[facility] [address]fnuxfucob[address] [place], [place] [address] GAP 10 (Normal) Range: 5-15 CO2 26.0 [...] A.D.A. criteria. :55 Lipase Comments: Test performed at:[facility] [address]fybibjkm[address] [place] [address] LIPASE 142 U/L (Normal) Range: 70-290 8-Ged-624678:40 HgA1C , Office (29719) HgA1C , Office 7.4 % (Abnormal) Range: 4.6 - 7.1 :03 CBC W/Diff, Automated Comments: Test performed at:[facility] Unccyzkkpg63[address] [place] [address] Absolute Lymph 1.31 {X10_3/ul} (Normal) Range: 0.83-4.51 [...] 4.2-5.4 WBC 5.1 K/mm3 (Normal) Range: 4.4-11.0 11-Enm-792333:03 Comprehensive Metabolic Profil Comments: Test performed at:[facility] [address]jilostgh[address] [place] [address] GAP 11 (Normal) Range: 5-15 [...] 126 mg/dLsuggests DIABETES MELLITUS per A.D.A. criteria. 96-Eve-786301:00 Culture, Urine Comments: Test performed at:[facility] [address]rskcfr[address] [place] [address] CUUR See Note (Normal) Comments: Urine CultureORGANISM 1: Streptococcus agalactiae (B)[place] Count 1000-10,000 Streptococcus agalactiae (B): REACTION Ampicillin $ <=0.25 S Benzylpenicillin NF <=0.06 S Ceftriaxone (other dx) $ <=0.12 S Inducable Clindamycin Resistan - Linezolid $$$$ <=2 S Vancomycin $ 0.5 S(NF) indicates non-formulary drug at [facility]. Approval by Infectious Disease Specialist required before non-formulary drugs may be ordered and/or dispensed. * CLSI guidelines does not recommend testing of cephalosporins. This interpretation is deduced from Beta-lactam/penicillin results.; ADDENDA: handled by edvin :32 CBC W/Diff, Auto - EPLAB Only Comments: At [facility] Outpatient [facility], [facility] Cancer Care patientsreceive CBC w/auto Differential ONLY. Physician will placean order for a manual differential or Pathologist review athis discretion. [facility]. [address] [place] [address] [place] [address] EMPLOYEE RELATIONS MANAGER: MATEO CASTANEDA DO PH:[phone] performed at:[facility] Nzwmznwowk[address] [place], [place] [address] ; [facility] Absolute Neut 2.7 {X10_3/uL} (Normal) Range: [...] Specimen #1, #2 or #3? 1Test performed at:[facility] [address]fxhgyaqm[address] [place] [address] Range: 87-241 Comments: ADDENDA: elliott :34 TSH (76666) Comments: PATIENT WAS FASTINGPERFORMED BY: [facility] HospitalAudioTagShiprock-Northern Navajo Medical CenterbHjamcb5213 [facility] [id number] TSH 1.240 {uIU/mL} (Normal) Range: 0.450-4.500 :34 LIPID PANEL (22854) Comments: PATIENT WAS FASTINGPERFORMED BY: [facility] [place] [address] [id number] LDL/HDL Ratio 2.6 {ratio_units} (Normal) Range: 0.0-3.2 [...] CREATININE RATIO Comments: PATIENT WAS FASTINGPERFORMED BY: VocalocityShiprock-Northern Navajo Medical CenterbDsliji2423 [facility] [id number]; non- emergent till apt tomorrow (26537) AND (16081) Microalb/Creat Ratio 14.8 {mg/g_creat} (Normal) Range: 0.0-30.0 Microalbumin, Urine 44.5 ug/mL (Abnormal) Range: 0.0-17.0 Creatinine, Urine 301.0 mg/dL (Abnormal) Range: 15.0-278.0 :34 METABOLIC PANEL, Comments: PATIENT WAS FASTINGPERFORMED BY: [facility]6370 [facility] [id number] Information: [id number] COMPREHENSIVE (68427) ALT (SGPT) 21 [iU]/L (Normal) Range: 0-32 [...] Glucose, Serum 161 mg/dL (Abnormal) Range: 65-99 9-Hwt-029408:10 HgA1C , Office (36128) HgA1C , Office 7.2 % (Abnormal) Range: 4.6 - 7.1 :47 CBC W/Diff, Automated Comments: Test performed at:[facility] Pfim[address]jhjw[address] [place], [place] [address] ; Handled by Vicki Absolute Lymph 1.43 [...] 4.2-5.4 WBC 5.4 K/mm3 (Normal) Range: 4.4-11.0 98-Srm-506423:47 Comprehensive Metabolic Profil Comments: Test performed at:[facility] [address]suwjwxchb[address] [place], [place] [address] GAP 6 (Normal) Range: 5-15 CO2 30.0 [...] Microscopic Examination Comments: PATIENT NOT FASTINGPERFORMED BY: [facility]ocalocityHoly Name Medical CenterEdxwku2923 [facility] [id number] Bacteria Few (Normal) Mucus Threads Present (Normal) Epithelial Cells (non renal) 0-10 {/hpf} (Normal) Range: 0 - 10 RBC 0-2 {/hpf} (Normal) Range: 0 - 2 WBC >30 {/hpf} (Abnormal) Range: 0 - 5 :01 Urinalysis, Routine Comments: PATIENT NOT FASTINGPERFORMED BY: [employer] Ornmyh5994 [facility] [id number] Microscopic Examination See below: (Normal) Comments: Microscopic was indicated and was performed. Nitrite, Urine Negative (Normal) Urobilinogen,Semi-Qn 0.2 mg/dL (Normal) Range: 0.0-1.9 Bilirubin Negative (Normal) Occult Blood Negative (Normal) Ketones Trace (Abnormal) Glucose Negative (Normal) Protein 1+ (Abnormal) WBC Esterase 3+ (Abnormal) Appearance Turbid (Abnormal) Urine-Color Yellow (Normal) pH 6.0 (Normal) Range: 5.0-7.5 Specific [place] 1.030 (Normal) Range: 1.005-1.030 :18 CBCD ALC [...] mg/dLsuggests DIABETES MELLITUS per A.D.A. criteria. :01 [id number]-[id number]-FSQWG (22666) Comments: PATIENT NOT FASTINGPERFORMED BY: [place] [id number] [facility] [id number] AFP, Serum, Tumor Marker 7.1 ng/mL (Normal) Range: 0.0-8.3 Comments: Khanh ECLIA methodology :01 PTT (Activated Partial Comments: PATIENT NOT FASTINGPERFORMED BY: [address] [id number] Thromboplastin Time) (48334) aPTT 25 {sec} (Normal) Range: 24-33 Comments: This test has not been validated for monitoring unfractionated heparintherapy. aPTT-based therapeutic ranges for unfractionated heparintherapy have not been established. For general guidelines onHeparin monitoring, refer to the [facility] Directory of Services. :01 PT (Prothrobim Time) (68723) Comments: PATIENT NOT FASTINGPERFORMED BY: [place] [id number] [facility] [id number] Prothrombin Time 10.4 {sec} (Normal) Range: 9.1-12.0 INR 1.0 (Normal) Range: 0.8-1.2 Comments: Reference interval is for non-anticoagulated patients. . Suggested INR therapeutic range for Vitamin K anta gonist therapy: Standard Dose (moderate intensity therapeutic range): 2.0 - 3.0 Higher intensity therapeutic range 2.5 - 3.5 :01 TSH (73864) Comments: PATIENT NOT FASTINGPERFORMED BY: [facility]6370 [facility] [id number] TSH 1.450 {uIU/mL} (Normal) Range: 0.450-4.500 :01 CBC W/AUTO DIFF WBC Comments: PATIENT NOT FASTINGPERFORMED BY: [facility]6370 [facility] [id number] Information: [id number] (57085) Immature Grans (Abs) 0.0 {x10E3/uL} (Normal) Range: [...] CREATININE RATIO Comments: PATIENT NOT FASTINGPERFORMED BY: [facility]ocalocityHoly Name Medical CenterQnizxq2429 [facility] [id number] (90736) AND (43657) Microalb/Creat Ratio 26.4 {mg/g_creat} (Normal) Range: 0.0-30.0 Microalbumin, Urine 96.0 ug/mL (Abnormal) Range: 0.0-17.0 Creatinine, Urine 364.2 mg/dL (Abnormal) Range: 15.0-278.0 :01 METABOLIC PANEL, COMPREHENSIVE Comments: PATIENT NOT FASTINGPERFORMED BY: [employer] Rxtfjm1267 [facility] [id number] (13350) ALT (SGPT) 19 [iU]/L (Normal) Range: 0-32 [...] mg/dL (Abnormal) Range: 65-99 :01 LIPID PANEL (41165) Comments: PATIENT NOT FASTINGPERFORMED BY: LabCoHoly Name Medical CenterCkxsac3341 [facility] [id number] LDL/HDL Ratio 2.1 {ratio_units} (Normal) Range: 0.0-3.2 [...] (Normal) Range: 100-199 :19 HgA1C , Office (46935) HgA1C , Office 6.3 % (Normal) Range: 4.6 - 7.1 :11 LDH 205 U/L (Normal) Comments: Serial Specimen #1, #2 or #3? 1 Range: 87-241 08-Nyh-746004:10 ECBCD ANC 3.4 {X10_3/uL} (Normal) Range: 2.0-7.7 [...] 7-18 GLU 102 mg/dL (Normal) Range: 70-110 62-Esr-81341:59 Anaerobic & Aerobic Comments: PATIENT NOT FASTINGPERFORMED BY: REINALDO [facility] Ihlflz9205 [facility] [id number] Information: SRC:EMIL [id number] RIGHT EYE Culture (54810) Antimicrobial MIHEAD (Normal) Comments: S = Susceptible; [...] hours. Anaerobic Culture Final report (Normal) :57 [id number]-QDEILXXZBXW-HEKHH (38460) Comments: PATIENT WAS FASTINGPERFORMED BY: [facility]6370 [facility] [id number] AFP, Serum, Tumor Marker 9.2 ng/mL (Abnormal) Range: 0.0-8.3 Comments: Khanh ECLIA methodology :57 PTT (Activated Partial Comments: PATIENT WAS FASTINGPERFORMED BY: [facility]6370 [facility] [id number] Thromboplastin Time) (99645) aPTT 26 {sec} (Normal) Range: 24-33 Comments: This test has not been validated for monitoring unfractionated heparintherapy. aPTT-based therapeutic ranges for unfractionated heparintherapy have not been established. For general guidelines onHeparin monitoring, refer to the [facility] Directory of Services. :57 PT (Prothrobim Time) (52091) Comments: PATIENT WAS FASTINGPERFORMED BY: VocalocityHoly Name Medical CenterTywlut4703 [facility] [id number] Prothrombin Time 10.5 {sec} (Normal) Range: 9.1-12.0 INR 1.0 (Normal) Range: 0.8-1.2 Comments: Reference interval is for non-anticoagulated patients. . Suggested INR therapeutic range for Vitamin K anta gonist therapy: Standard Dose (moderate intensity therapeutic range): 2.0 - 3.0 Higher intensity therapeutic range 2.5 - 3.5 :57 TSH (58565) Comments: PATIENT WAS FASTINGPERFORMED BY: [facility]ocalocityHoly Name Medical CenterQdnnsr1656 [facility] [id number] TSH 3.200 {uIU/mL} (Normal) Range: 0.450-4.500 :57 CBC WITH MANUAL DIFF Comments: PATIENT WAS FASTINGPERFORMED BY: [facility]6370 [facility] [id number] Information: [id number] (11127) Immature Grans (Abs) 0.0 {x10E3/uL} (Normal) Range: [...] PANEL, COMPREHENSIVE Comments: PATIENT WAS FASTINGPERFORMED BY: [facility]CoHoly Name Medical CenterApfuho4375 [facility] [id number] (96765) ALT (SGPT) 15 [iU]/L (Normal) Range: 0-32 [...] (Abnormal) Range: 65-99 :29 HgA1C , Office (03352) HgA1C , Office 5.4 % (Normal) Range: [...] CHOL 150 mg/dL (Normal) Comments: <200 mg/dL Ihpojhkag503-029 mg/dL Borderline>240 mg/dL High Risk :50 HgA1C , Office (53621) HgA1C , Office 5.8 % (Normal) Range: [...] [facility] within 30 days. Approximately 10% of breast cancers are not detected by mammography. Anormal mammogram should not delay biopsy of a clinically suspiciousabnormality. Signed:Mele Santiago [facility] 2012 at 9:19:01 AM [phone] Signed GP/GP If you are the referring physician and would like to consult with theradiologist who provided this interpretation, please herbie Bonilla M.D. at [phone]. If this radiologist is unavailable, youwill be directed to another radiologist to assist. If you are a patient with a question regarding this report, pleaseco ntactyour referring physician directly. Professional Interpretation Provided By: [employer], Phone , These documents contain legally protected [...] on 06/15/13920 Sign by: Prashant Delgadillo MD 04-Sfp-30399:27 THYROID Radiology Report See Note Comments: STUDY: THYROID ULTRASOUND REASON FOR EXAM: Female, 48 years old. Followup for left thyroidnodule. TECHNIQUE: Ultrasound evaluation of the thyroid was performed withreal-time and static nadrade-scale (Normal) imaging. COMPARISON: Comparison is made with [...] Delgadillo M.D.June 15, 2013 at 2:56:26 PM [phone] Signed GP/GP If you are the referring physician and would like to consult with theradiologist who provided this interpretation, please contact Sarmad Bonilla at [phone]. If this radiologist is unavailable, youwill be directed to another radiologist to assist. If you are a patient with a question regarding this report, pleasecontactyour referring physician directly. Profes sional Interpretation Provided By: [employer], Phone , These documents contain legally protected [...] 06/15/13 1733 Sign by: Prashant Delgadillo MD 4-Ufs-152309:18 URINE GENESIS CULTURE-NITA COL Comments: PATIENT NOT FASTINGPERFORMED BY: [facility] Gggztm6836 [facility] [id number] Information: SRC: [id number] COUNT (08637) Antimicrobial MIHEAD (Normal) Comments: S = Susceptible; [...] primarily for treating urinary tract infections. (CLSI, R835-E45,2009) Urine Culture,Comprehensive Final report (Normal) 04-Jun-20138:48 Urinalysis, Office (36707) UA - LEUKOCYTE ESTERASE Large (Normal) UA - NITRITE Positive (Normal) URINE UROBILINGN NITA TIMED 2 mg/dL (Normal) UA - PROTEIN Negative mg/dL (Normal) UA - BLOOD Negative (Normal) UA - KETONES Moderate mg/dL (Normal) UA - BILIRUBIN Moderate (Normal) UA - GLUCOSE Small mg/dL (Normal) 29-Kky-18503:06 MICROALBUMIN: CREATININE RATIO Comments: PATIENT WAS FASTINGPERFORMED BY: Dorn Technology GroupHoly Name Medical CenterAxejlw7715 [facility] [id number] (23734) AND (98563) Microalb/Creat Ratio 27.4 {mg/g_creat} (Normal) Range: 0.0-30.0 Microalbumin, Urine 85.2 ug/mL (Abnormal) Range: 0.0-17.0 Creatinine, Urine 311.1 mg/dL (Abnormal) Range: 15.0-278.0 :06 METABOLIC PANEL, Comments: PATIENT WAS FASTINGPERFORMED BY: [employer] GroupShiprock-Northern Nav[facility] Medical CenterbBwlmhn2032 [facility] [id number] Information: ADD [id number] AND DRAW FEE 99 9570 COMPREHENSIVE (34640) ALT (SGPT) 29 [iU]/L (Normal) Range: 0-32 [...] 76 mg/dL (Normal) Range: 65-99 :06 TSH (61492) Comments: PATIENT WAS FASTINGPERFORMED BY: [place] [id number] [facility] [id number] TSH 3.040 {uIU/mL} (Normal) Range: 0.450-4.500 :06 LIPID PANEL (10103) Comments: PATIENT WAS FASTINGPERFORMED BY: [address] [id number] LDL/HDL Ratio 2.4 {ratio_units} (Normal) Range: 0.0-3.2 HDL Cholesterol 55 mg/dL (Normal) Comments: According to ATP-III Guidelines, HDL-C >59 mg/dL is considered anegative risk factor for CHD. LDL Cholesterol Calc 134 mg/dL (Abnormal) Range: 0-99 VLDL Cholesterol Ramandeep 18 mg/dL (Normal) Range: 5-40 Cholesterol, Total 207 mg/dL (Abnormal) Range: 100-199 Triglycerides 89 mg/dL (Normal) Range: 0-149 :06 VQSRN-MSLYYGEOBIM-RAJPA (02604) Comments: PATIENT WAS FASTINGPERFORMED BY: [facility]6370 [facility] [id number] AFP, Serum, Tumor Marker 5.4 ng/mL (Normal) Range: 0.0-8.3 Comments: Khanh ECLIA methodology :06 PTT (Activated Partial Comments: PATIENT WAS FASTINGPERFORMED BY: [address] [id number] Thromboplastin Time) (33729) aPTT 27 {sec} (Normal) Range: 24-33 Comments: This test has not been validated for monitoring unfractionated heparintherapy. aPTT-based therapeutic ranges for unfractionated heparintherapy have not been established. For general guidelines onHeparin monitoring, refer to the [facility] Directory of Services. :06 PT (Prothrobim Time) (91885) Comments: PATIENT WAS FASTINGPERFORMED BY: [facility]6370 [facility] [id number] INR 1.1 (Normal) Range: 0.8-1.2 Comments: Reference interval is for non-anticoagulated patients. . Suggested INR therapeutic range for Vitamin K anta gonist therapy: Standard Dose (moderate intensity therapeutic range): 2.0 - 3.0 Higher intensity therapeutic range 2.5 - 3.5 Prothrombin Time 11.0 {sec} (Normal) Range: 9.1-12.0 :51 HgA1C , Office (18215) HgA1C , Office 5.0 % (Normal) Range: [...] 4.2-5.4 WBC 3.6 {k/mm3} (Abnormal) Range: 4.4-11.0 00-Xob-10337:48 CMP GAP 9 (Normal) Range: 5-15 CO2 [...] 0.6-1.0 GLU 91 mg/dL (Normal) Range: 70-110 19-Oph-98836:03 Rapid Flu (55914 x 2) Influenza A Ag positive b (Normal) 83-Qwv-06775:27 METABOLIC PANEL, COMPREHENSIVE Comments: PATIENT WAS FASTINGPERFORMED BY: LabCoHoly Name Medical CenterFlyzif5451 [facility] [id number] (82942) ALT (SGPT) 25 [iU]/L (Normal) Range: 0-32 [...] mg/dL (Normal) Range: 65-99 :27 LIPID PANEL (45123) Comments: PATIENT WAS FASTINGPERFORMED BY: [employer] [facility] [id number] LDL/HDL Ratio 0.9 {ratio_units} (Normal) Range: 0.0-3.2 LDL Cholesterol Calc 29 mg/dL (Normal) Range: 0-99 VLDL Cholesterol Ramandeep 17 mg/dL (Normal) Range: 5-40 HDL Cholesterol 32 mg/dL (Abnormal) Comments: According to ATP-III Guidelines, HDL-C >59 mg/dL is considered anegative risk factor for CHD. Cholesterol, Total 78 mg/dL (Abnormal) Range: 100-199 Triglycerides 84 mg/dL (Normal) Range: 0-149 :27 TSH (81469) Comments: PATIENT WAS FASTINGPERFORMED BY: [employer] [facility] [id number] TSH 3.990 {uIU/mL} (Normal) Range: 0.450-4.500 :27 CBC WITH MANUAL DIFF Comments: PATIENT WAS FASTINGPERFORMED BY: [employer] [facility] [id number] Information: [id number] (89299) Immature Grans (Abs) 0.0 {x10E3/uL} Range: 0.0-0.1 [...] Comments: Khanh ECLIA methodologyPerformed at: - [facility] [address] [id number] Director: Manuelito Mendez PhD, Phone: [phone] 75-Dcr-77611:39 CBCMD ANC 2.4 3/uL (Normal) Range: 2.0-7.7 [...] CHOL 130 mg/dL (Normal) Comments: <200 mg/dL Gzxpxwbwp083-606 mg/dL Borderline>240 mg/dL High Risk :39 MIACRE tMICROCREAT 16.5 {mg/g_CRE} (Normal) MIALB 23.3 mg/L (Normal) CREU 141.0 mg/dL (Normal) :39 PT INR 1.1 (Normal) PTP 13.6 s (Normal) Range: 11.9-14.4 :39 PTT PTTP 29.5 s (Normal) Range: 24.1-36.2 :17 Rapid Flu (08641 x 2) Influenza A Ag neg (Normal) :29 HgA1C , Office (28712) HgA1C , Office 5.9 % (Normal) Range: 4.6 - 7.1 :53 FT3 2.9 pg/mL (Normal) Range: 2.18-3.98 :53 T4F 1.26 ng/dL (Normal) Range: 0.76-1.46 :53 TPO 8 {IU/mL} (Normal) Range: 0-34 Comments: Performed at: - [facility] [id number] Director: Codi Robles MD, Phone: [phone] 84-Rng-587253:53 TSH 1.23 {uIU/mL} (Normal) Range: 0.358-3.74 :04 HgA1C , Office (93446) HgA1C , Office 5.8 % (Normal) Range: [...] :26 LIPID Comments: ORDERED TSH LIPID CMP [facility]ENTERJACINDA ORDERED VITD CMP CBCD VLDL 21 mg/dL [...] {uIU/mL} (Normal) Comments: ORDERED TSH LIPID CMP [facility]JACINDA ORDERED VITD CMP CBCD Range: 0.358-3.74 :26 VITD 44.8 ng/mL (Normal) Comments: DR.FAST ORDERED TSH LIPID CMP CBCMD MIACREDR.JACINDA ORDERED VITD CMP CBCD Range: 30.0-100.0 Comments: Vitamin D deficiency has been defined by the [place] ofMedicine and an Endocrine Society practice guideline as alevel of serum 25-OH vitamin D less than 20 ng/mL (1,2).The Endocrine Society went on to further define vitamin Dinsufficiency as a level between 21 and 29 ng/mL (2).1. IOM ([place] of Medicine). 2010. Dietary reference intakes for calcium and D. [place]: The National Academies Press.2. Sami MF, Sophie MOORE, Xiomara LARES, et al. Evaluation, treatment, and prevention of vitamin D deficiency: an Endocrine Society clinical practice guideline. JCEM. 2010; 96(7): 1911-30.Performed at: [address] [id number] Director: Codi Robles MD, Phone: [phone] 27-Jan-20128:02 BILAT SCRN DIGITAL & CAD Radiology [...] Signed GP/GP Professional Interpretat ion Provided By: [facility], , To consult with a radiologist regarding this report, please call our [id number] line @ Dicta dani on 01/27/12 0813 by Faustina KING,ArnaldorieleTranscribed on 01/27/12 0950 by ITS IMPORTSign by Faustina KING,Prashant on 01/27/12 0951 Sign by: Prashant Delgadillo MD 44-Pmg-771184:24 HgA1C , Office (01219) HgA1C , Office 5.7 % (Normal) Range: 4.6 - 7.1 54-Doo-865933:24 Blood Glucose , Office (42196) Blood Glucose , Office 89 (Normal) 92-Itl-410394:31 Urinalysis, Office (05526) UA - LEUKOCYTE ESTERASE Small (Normal) UA - NITRITE Positive (Normal) URINE UROBILINGN NITA TIMED Normal mg/dL (Normal) UA - PROTEIN 300 mg/dL (Normal) UA - PH 6.0 (Normal) UA - SPECIFIC GRAVITY 1.025 (Normal) UA - KETONES Small mg/dL (Normal) UA - BILIRUBIN Moderate (Normal) UA - GLUCOSE Negative (Normal) :15 HgA1C , Office (62015) HgA1C , Office 6.8 % (Normal) Range: 4.6 - 7.1 :15 Blood Glucose , Office (95034) Blood Glucose , Office 162 (Normal) 95-Zdw-709269:22 THYROID Radiology Report See Note (Normal) Comments: [...] 09/08/11 1330 Sign by: Prashant Delgadillo MD 69-Xdk-42248:59 COMP METABOLIC GAP 9 (Normal) Range: 5-15 [...] COL Comments: PATIENT NOT FASTINGPERFORMED BY: [facility] Teexbb0459 [facility] [id number] Information: SRC:[facility] [id number] COUNT (78313) Antimicrobial MIHEAD (Normal) Comments: S = Susceptible; [...] pneumoniae (Normal) Urine Final report Culture,Comprehensive (Normal) 17-Crs-57461:32 Urinalysis, Office (15843) UA - LEUKOCYTE ESTERASE Moderate (Normal) URINE UROBILINGN NITA TIMED Normal mg/dL (Normal) UA - PROTEIN 100 mg/dL (Normal) UA - PH 6.0 (Normal) UA - BLOOD Hemolyzed Large (Normal) UA - SPECIFIC GRAVITY 1.025 (Normal) UA - KETONES Negative mg/dL (Normal) UA - BILIRUBIN Negative (Normal) UA - GLUCOSE Negative (Normal) :28 Blood Glucose , Office (05337) Blood Glucose , Office 223 (Normal) :10 Urinalysis, Office (62570) UA - BILIRUBIN Small (Normal) UA - BLOOD Hemolyzed Large (Normal) UA - GLUCOSE Small (Normal) Comments: 100 UA - KETONES Negative mg/dL (Normal) UA - LEUKOCYTE ESTERASE Trace (Normal) UA - NITRITE Positive (Normal) UA - PH 5.0 (Normal) UA - PROTEIN 300 mg/dL (Normal) UA - SPECIFIC GRAVITY 1.020 (Normal) URINE UROBILINGN NITA TIMED 2 mg/dL (Normal) 3-Xqk-404851:29 URINE GENESIS CULTURE-NITA COL Comments: PATIENT NOT FASTINGPERFORMED BY: [facility] Qtshqn1609 [facility] [id number] Information: SRC:UR [id number] COUNT (06455) Antimicrobial MIHEAD (Normal) Comments: S = Susceptible; [...] mL (Normal) Urine Final report (Normal) Culture,Comprehensive 8-Tpc-690706:31 Urinalysis, Office (54232) UA - BILIRUBIN Large (Normal) UA - [...] (Abnormal) Range: 0.358-3.74 :28 HgA1C , Office (72402) HgA1C , Office 8.3 % (Abnormal) Range: 4.6 - 7.1 :28 Blood Glucose , Office (26508) Blood Glucose , Office 176 (Normal) :24 [...] 200-240 mg/dL Borderline >240 mg/dL High Risk 43-Egf-340795:54 BRAIN/HEAD W/WO CONTRAST Radiology See Note Comments: [...] Prashant Delgadillo MD :44 HgA1C , Office (32818) HgA1C , Office 7.4 % (Abnormal) Range: 4.6 - 7.1 :44 Blood Glucose , Office (54181) Blood Glucose , Office 206 (Normal) :37 [...] Report See Note (Normal) Comments: Exam Number: [id number] AMMOGRAPHY - BILATERAL SCREENING INDICATION:Routine annual screening [...] attaching a ResultCode to this exam. ADDENDUM: [id number] HPBI/MDS Reported By: PRASHANT DELGADILLO :14 HgA1C , Office (82999) HgA1C , Office 7.0 % (Normal) Range: 4.6 - 7.1 :14 Blood Glucose , Office (07816) Blood Glucose , Office 164 (Normal) :30 LASHA DIR SEMI-QL LASHA DIRECT 24 AU/mL (Normal) :30 ANTI-dsDNA AB 10 {IU/mL} (Normal) :30 TSH 6.39 {uIU/mL} (Abnormal) Range: 0.358-3.74 53-Sda-560076:35 C-REACTIVE PROTEIN (56701) Comments: PATIENT NOT FASTINGPERFORMED BY: LabCoHoly Name Medical CenterBdjmsp3606 [facility] [id number] C-Reactive Protein, Quant 6.5 mg/L (Abnormal) Range: 0.0-4.9 68-Glv-729348:35 SED RATE ERYTHROCYTE (54941) Comments: PATIENT NOT FASTINGPERFORMED BY: [facility]6370 [facility] [id number] Sedimentation Rate-Westergren 14 mm/h (Normal) Range: 0-20 62-Fkd-575371:35 RHEUMATOID FACTOR-QUANT (64812) Comments: PATIENT NOT FASTINGPERFORMED BY: [facility]6370 [facility] [id number] RA Latex Turbid. 7.6 {IU/mL} (Normal) Range: 0.0-13.9 41-Ipm-803701:35 LASHA (ANTINUCLEAR ANTIBODY) Comments: PATIENT NOT FASTINGPERFORMED BY: [facility]6370 [facility] [id number] (35344) LASHA Direct Positive (Abnormal) 19-Ooi-232936:35 T3, FREE (TRIDOTHYRONINE) (25850) Comments: PATIENT NOT FASTINGPERFORMED BY: [facility]6370 [facility] [id number] Triiodothyronine,Free,Serum 2.8 pg/mL (Normal) Range: 2.0-4.4 20-Myk-021998:35 T4, FREE (THYROXINE) (03173) Comments: PATIENT NOT FASTINGPERFORMED BY: [facility]6370 [facility] [id number] T4,Free(Direct) 0.76 ng/dL (Abnormal) Range: 0.82-1.77 65-Wxq-660775:35 Anti-TPO Antibody (40644) Comments: PATIENT NOT FASTINGPERFORMED BY: [facility]6370 [facility] [id number] Thyroid Peroxidase (TPO) Ab <6 {IU/mL} (Normal) Range: 0-34 66-Man-363575:35 TSH (86828) Comments: PATIENT NOT FASTINGPERFORMED BY: [facility]6370 [facility] [id number] TSH 5.630 {uIU/mL} (Abnormal) Range: 0.450-4.500 Comments: Please note reference interval change 81-Scv-076653:35 METABOLIC PANEL, Comments: PATIENT NOT FASTINGPERFORMED BY: [facility] Mgqvfv4156 [facility] [id number] Information: [id number] COMPREHENSIVE (25505) ALT (SGPT) 55 [iU]/L (Abnormal) Range: 0-40 [...] Glucose, Serum 151 mg/dL (Abnormal) Range: 65-99 91-Qsk-651687:02 GENESIS CULTURE-OTHER (62334) Comments: PATIENT NOT FASTINGPERFORMED BY: REINALDO [facility] Uvlipv2173 [facility] [id number] Information: SRC:THRT [id number] Result 1 Yeast isolated. (Normal) Comments: Moderate growthRequest for further identification must be madewithin 1 week. Upper Respiratory Culture Final report (Normal) 01-Vnh-66886:37 Rapid Strep Test, Office (59396) Rapid Strep Test, Office Negative (Normal) 70-Jll-838334:11 THYROID (HP) Radiology Report See Note (Normal) Comments: Exam Number: [id number] CLINICAL:This is a 45-year-old female patient with [...] CHOL 147 mg/dL (Normal) Comments: <200 mg/dL Ciyaeysxc590-125 mg/dL Borderline>240 mg/dL High Risk HDL 32 [...] :41 TSH 4.85 {uIU/mL} (Abnormal) Range: 0.358-3.74 10-Gmu-069190:50 URINE GENESIS CULTURE-NITA COL Comments: PATIENT NOT FASTINGPERFORMED BY: [facility] Ubkjdz7198 [facility] [id number] Information: SRC:UR ADD [id number] COUNT (64657) Result 1 Klebsiella pneumoniae Comments: 1,000 Colonies/mL [...] STrimethoprim/Sulfa S Urine Final report (Normal) Culture,Comprehensive 55-Jgu-39796:55 Urinalysis, Office (59551) UA - LEUKOCYTE ESTERASE Small (Normal) UA - NITRITE Negative (Normal) URINE UROBILINGN NITA TIMED Normal mg/dL (Normal) UA - PROTEIN 30 mg/dL (Normal) UA - PH 6.0 (Normal) UA - BLOOD Negative (Normal) UA - SPECIFIC GRAVITY 1.020 (Normal) UA - KETONES Negative mg/dL (Normal) UA - BILIRUBIN Negative (Normal) UA - GLUCOSE Negative (Normal) 5-Ark-146011:37 PET/CT,TUMOR,BASE-THIGH,SUBS Radiology Report See Note (Normal) Comments: Exam Number: [id number] EXAM: Body PET study Head to Mid [...] 44:398P, 2003). w Reported By: ADELA MOLINA 7-Cjz-635766:00 PRANEETH+ELPU24 3467 ALBUMIN,U 37.7 % (Normal) ANJNQ-3-IZCC,U 3.2 % (Normal) EUQYJ-4-WAMF,U 7.6 % (Normal) BETA GLOB,U 23.1 % (Normal) GAMMA GLOB,U 28.5 % (Normal) PRANEETH RESULT,U Comment (Normal) Comments: No monoclonality detected. M-SPIKE,UR% SeeNote % (Normal) Comments: Result: Not Observed PROTEIN, U24 62.1 {mg/24_hr} Range: 30.0-150.0 (Normal) PROTEIN,UR 2.3 mg/dL (Normal) Range: 0.0-15.0 0-Skm-493835:15 C-REACTIVE PROT < 2.90 mg/L (Normal) Range: 0.0-3.0 Comments: C-Reactive Protein (CRP) provides useful information for thediagnosis, therapy and monitoring of inflammatory processesand associated diseases. For the evaluation of Relative Riskfor Cardiovascular Dise ase, a High Sensitivity CRP (HSCRP)should be ordered. 8-Tnv-107320:15 CBCD,SMEAR DIFF PLT EST SeeNote (Normal) Comments: [...] 4.2-5.4 WBC 4.3 K/mm3 (Abnormal) Range: 4.4-11.0 9-Voz-124687:15 COMP METABOLIC CL 104 mmol/L (Normal) Range: [...] <126 mg/dLsuggests IMPAIRED HOMEOSTASIS per A.D.A. criteria. 2-Vav-111052:15 ESR SED RATE 11 mm/h (Normal) Range: 0-20 4-Cwk-973456:15 LDH 197 U/L (Abnormal) Range: 100-190 0-Qoy-790849:15 LIPID HDL 30 mg/dL (Abnormal) Comments: Reference [...] CHOL 154 mg/dL (Normal) Comments: <200 mg/dL Nhpsdaleo242-513 mg/dL Borderline>240 mg/dL High Risk 0-Ilr-637597:15 PROT.[id number] NOTE Comment (Normal) Comments: Protein electrophoresis scan will follow via computer,mail, or shoe stock associate delivery.Performed at: - [facility] [id number] Director: Kamlesh Arana MD ALBUMIN,UR 54.2 % (Normal) WRDMI-1-MQDZ,U 1.2 % (Normal) WQCVH-9-XYHG,U 9.4 % (Normal) BETA GLOB,U 23.4 % (Normal) GAMMA GLOB,U 11.8 % (Normal) M-SPIKE,U SeeNote % (Normal) Comments: Result: Not Observed PROTEIN,UR 13.6 mg/dL (Normal) Range: 0.0-15.0 6-Owr-858202:15 SPE [id number] A/G RATIO 1.8 (Normal) Range: 0.7-2.0 GLOBULIN, [...] electrophoresis scan will follow via computer,mail, or shoe stock associate delivery. M-SPIKE SeeNote g/dL (Normal) Comments: Result: Not Observed GAMMA GLOBULIN 0.4 g/dL (Abnormal) Range: 0.5-1.6 ALBUMIN 3.9 g/dL (Normal) Range: 3.2-5.6 ALPHA-1 GLOBUL 0.2 g/dL (Normal) Range: 0.1-0.4 ALPHA-2 GLOBUL 0.7 g/dL (Normal) Range: 0.4-1.2 BETA GLOBULIN 0.9 g/dL (Normal) Range: 0.6-1.3 PROTEIN,TOTAL 6.1 g/dL (Normal) Range: 6.0-8.5 86-Wer-155762:28 BRAIN/HEAD WITHOUT CONTRAST Radiology Report See Note (Normal) Comments: Exam Number: [id number] CT SCAN OF BRAIN HISTORYLytic lesion, lymphoma. [...] for confirmation. Reported By: TRUE NAGEL M.D. 51-Wdf-964824:23 SPINE,CERVICAL WITHOUT CONTRAS Radiology Report See Note (Normal) Comments: Exam Number: [id number] CLINICAL:44 year old female with cervical radiculopathy. [...] tumor involvement. Reported By: SHARYN JASMINE M.D. 49-Ayc-000786:50 Blood Glucose , Office (31801) Blood Glucose , Office 105 (Normal) 19-Qiy-417098:50 HgA1C , Office (65882) HgA1C , Office 6.1 % (Normal) Range: 4.6 - 7.1 13-Lit-893373:24 URINE GENESIS CULTURE-NITA COL Comments: PATIENT NOT FASTINGPERFORMED BY: REINALDO [id number] [id number] Information: SRC:INGRID [id number] COUNT (70002) Antimicrobial MIHEAD (Normal) Comments: S = Susceptible; [...] mL (Normal) Urine Final report (Normal) Culture,Comprehensive 19-Hvc-047149:41 Urinalysis, Office (49482) UA - LEUKOCYTE ESTERASE Large (Normal) UA - NITRITE Negative (Normal) URINE UROBILINGN NITA TIMED Normal mg/dL (Normal) UA - PROTEIN 100 mg/dL (Normal) UA - PH 5.0 (Normal) UA - BLOOD Hemolyzed Large (Normal) UA - SPECIFIC GRAVITY 1.025 (Normal) UA - KETONES Negative mg/dL (Normal) UA - BILIRUBIN Negative (Normal) UA - GLUCOSE Negative (Normal) 0-Kbq-284704:19 BLOOD GAS, O2 SAT ONLY - INITL Radiology Report See Note (Normal) Comments: Exam Number: [id number] Procedure completed. Please see MEDICAL RECORDS reports in PCI - OP - OP NOTE LET - LETTER. Reported By: BOONE CH M.D. 9-Xxm-646298:19 BLOOD GAS, O2 SAT ONLY - SUBSQ Radiology Report See Note (Normal) Comments: Exam Number: [id number] Procedure completed. Please see MEDICAL RECORDS reports in PCI - OP - OP NOTE LET - LETTER. Reported By: BOONE CH M.D. 8-Cpg-462902:19 BLOOD GAS, O2 SAT ONLY - SUBSQ Radiology Report See Note (Normal) Comments: Exam Number: [id number] Procedure completed. Please see MEDICAL RECORDS reports in PCI - OP - OP NOTE LET - LETTER. Reported By: BOONE CH M.D. 04-Aug-20096:45 RHC/LHC/CORS/LV Radiology Report See Note (Normal) Comments: Exam Number: [id number] Procedure completed. Please see MEDICAL RECORDS reports [...] MIXED GRAM POSITIVE ORGANISMS :58 Urinalysis, Office (08620) UA - BILIRUBIN Negative (Normal) UA - BLOOD Negative (Normal) UA - GLUCOSE Negative (Normal) UA - KETONES Negative mg/dL (Normal) UA - LEUKOCYTE ESTERASE Small (Normal) Comments: aw UA - NITRITE Negative (Normal) UA - PH 6.0 (Normal) UA - PROTEIN Negative mg/dL (Normal) UA - SPECIFIC GRAVITY 1.010 (Normal) URINE UROBILINGN NITA TIMED Normal mg/dL (Normal) :53 HgA1C , Office (14238) HgA1C , Office 5.7 % (Normal) Range: 4.6 - 7.1 :53 Blood Glucose , Office (88709) Blood Glucose , Office 133 (Normal) :24 [...] (Normal) Range: 6.4-8.2 :53 HgA1C , Office (72600) HgA1C , Office 10.0 % (Abnormal) Range: 4.6 - 7.1 :53 Blood Glucose , Office (23540) Blood Glucose , Office 410 (Normal) :46 [...] 11.6-14.6 WBC 4.0 K/mm3 (Abnormal) Range: 4.4-11.0 3-Yym-585762:46 COMP METABOLIC A/G 1.2 {RATIO} (Normal) Range: [...] mg/dL VLDL 49 mg/dL (Abnormal) Range: 40 1-Ewv-424158:46 MICROALB:CRE UR MALB:CREAT 33.3 {mg/g_CRE} (Abnormal) MICROALBUMIN,UR 62.2 mg/L (Normal) UR CREAT 186.7 mg/dL (Normal) 72-Jhk-547847:11 LIPID Comments: PATIENT NOT FASTING/DEMANDED TO BE [...] mg/dL VLDL 31 mg/dL (Normal) Range: 40 27-Evk-940206:11 LIVER Comments: PATIENT NOT FASTING/DEMANDED TO BE DRAWN ALT 43 U/L (Normal) Range: 30-65 D BILI 0.07 mg/dL (Normal) Range: 0.00-0.30 T BILI 0.35 mg/dL (Normal) Range: 0.00-1.00 ALB 3.4 g/dL (Normal) Range: 3.4-5.0 ALK P 210 U/L (Abnormal) Range: 50-136 AST 27 U/L (Normal) Range: 15-37 T PROT 6.4 g/dL (Normal) Range: 6.4-8.2 65-Lzu-593475:23 Urinalysis, Office (01488) Comments: done BC UA - BILIRUBIN Negative (Normal) UA - BLOOD Hemolyzed Large (Normal) UA - GLUCOSE Large (Normal) Comments: > 1000mg/dL UA - KETONES Negative mg/dL (Normal) UA - LEUKOCYTE ESTERASE Moderate (Normal) UA - NITRITE Negative (Normal) UA - PH 6.0 (Normal) UA - PROTEIN 30 mg/dL (Normal) UA - SPECIFIC GRAVITY 1.010 (Normal) URINE UROBILINGN NITA TIMED Normal mg/dL (Normal) 33-Zzz-806149:44 MYOCARD PERF SPECT REST/STRESS Radiology Report See Note (Normal) Comments: Exam Number: [id number] MYOCARDIAL PERFUSION SCAN TECHNIQUEThe patient was injected [...] of 37%. Reported By: NOE MORRIS M.D. 28-Loq-38874:39 SPINE, LUMBAR W/W/O CONTRAST Radiology Report See Note (Normal) Comments: Exam Number: [id number] MAGNETIC RESONANCE IMAGING OF THE LUMBAR SPINE [...] other abnormality. Reported By: SUSAN GOMEZ M.D. 84-Mnn-562055:04 CULTURE, URINE URINE CULTURE See Note {CFU/mL} (Normal) Comments: COLONY COUNT 25,000-50,000 ORGANISM 1: MIXED GRAM POSITIVE ORGANISMS 66-Ygu-689666:15 Urinalysis, Office (78633) UA - LEUKOCYTE ESTERASE Small (Normal) Comments: aw UA - NITRITE Negative (Normal) UA - PH 5.0 (Normal) UA - PROTEIN Negative mg/dL (Normal) URINE UROBILINGN NITA TIMED Normal mg/dL (Normal) UA - BILIRUBIN Negative (Normal) UA - BLOOD Negative (Normal) UA - GLUCOSE Negative (Normal) UA - KETONES Negative mg/dL (Normal) UA - SPECIFIC GRAVITY 1.025 (Normal) 71-Bjf-636020:09 Blood Glucose , Office (72558) Blood Glucose , Office 231 (Normal) 83-Zqz-625628:09 HgA1C , Office (27148) HgA1C , Office 7.1 % (Normal) Range: 4.6 - 7.1 41-Cwf-409570:42 CBCD,SMEAR DIFF CELLS COUNTED 100 (Normal) HCT [...] for patient's is the eGFRmultiplied by 1.212. [facility] Laboratory uses the abbreviated [...] Disease W/O Kidney Disease>/= 90 Stage One Bshmae64 - 89 Stage Two Suspect Decreased GFR30 [...] T PROT 6.5 g/dL (Normal) Range: 6.4-8.2 06-Cob-244511:42 LIPID CHOL 182 mg/dL (Normal) Comments: <200 [...] mg/dL VLDL 36 mg/dL (Normal) Range: 5-40 53-Fpr-399124:42 MICROALB:CRE UR MALB:CREAT 35.4 {mg/g_CRE} (Abnormal) MICROALBUMIN,UR 54.7 mg/L (Normal) UR CREAT 154.6 mg/dL (Normal) 31-Jmk-100618:42 TSH 2.57 {uIU/mL} (Normal) Range: 0.34-4.82 :40 CULTURE, URINE URINE CULTURE See Note {CFU/mL} (Normal) Comments: COLONY COUNT 1000-10,000 ORGANISM 1: MIXED GRAM POS & NEG ORGANISMS 47-Sot-045098:36 Urinalysis, Office (07373) UA - BILIRUBIN Negative (Normal) UA - BLOOD Non Hemolyzed Trace (Normal) UA - KETONES Negative mg/dL (Normal) UA - LEUKOCYTE ESTERASE Moderate (Normal) UA - NITRITE Negative (Normal) UA - PH 5.0 (Normal) UA - PROTEIN Negative mg/dL (Normal) UA - SPECIFIC GRAVITY 1.015 (Normal) URINE UROBILINGN NITA TIMED Normal mg/dL (Normal) UA - GLUCOSE Negative (Normal) 17-Dcg-327172:20 CULTURE, URINE URINE CULTURE See Note {CFU/mL} (Normal) Comments: COLONY COUNT 25,000-50,000 ORGANISM 1: MIXED GRAM POS & NEG ORGANISMS :12 Urinalysis, Office (51288) UA - BILIRUBIN Negative (Normal) UA - BLOOD Negative (Normal) UA - GLUCOSE Negative (Normal) UA - KETONES Negative mg/dL (Normal) UA - LEUKOCYTE ESTERASE Small (Normal) UA - NITRITE Negative (Normal) UA - PH 6.0 (Normal) UA - PROTEIN Negative mg/dL (Normal) UA - SPECIFIC GRAVITY 1.005 (Normal) URINE UROBILINGN NITA TIMED Normal mg/dL (Normal) 51-Bqj-456680:08 CBCD,SMEAR DIFF CELLS COUNTED 100 (Normal) EOS [...] 47-70 WBC 5.1 K/mm3 (Normal) Range: 4.4-11.0 40-Nlo-580552:08 COMP METABOLIC A/G 1.5 {RATIO} (Normal) Range: [...] Range: 0.34-4.82 :28 Blood Glucose , Office (09632) Blood Glucose , Office 124 (Normal) :28 HgA1C , Office (95302) HgA1C , Office 6.1 % (Normal) Range: 4.6 - 7.1 :38 CERULOPLAS 1560 21.3 mg/dL (Normal) Range: 17.9-53.3 Comments: Performed At: [address] [id number] :38 FERRITIN 189 ng/mL (Normal) Range: 8-252 :38 HEP-ABC 786231 HB CORE [id number] SeeNote (Normal) Comments: Result: Negative HB SURF [...] Please note reference interval change HEP A AB,T.67 SeeNote (Normal) Comments: Result: Negative HEP A IgM 6734 SeeNote (Normal) Comments: Result: Negative HEP B CORE,TOT SeeNote (Normal) Comments: Result: Negative HVC Ab <0.1 (Normal) Range: 0.0-0.9 Comments: NegativeNot infected with HCV, unless recent infection issuspected or other evidence exists to indicate HCVinfection. AMENDED REPORT 05/21/081907 HVC Ab previously reported as: RIBA RESULT <TEST NOT PERFORMED> (Normal) 25-Qnf-333615:38 LIVER ALB 3.5 g/dL (Normal) Range: 3.4-5.0 ALK P 162 U/L (Abnormal) Range: 50-136 ALT 50 U/L (Normal) Range: 30-65 AST 21 U/L (Normal) Range: 15-37 D BILI 0.05 mg/dL (Normal) Range: 0.00-0.30 T BILI 0.38 mg/dL (Normal) Range: 0.00-1.00 T PROT 6.5 g/dL (Normal) Range: 6.4-8.2 49-Aev-894046:38 MITOCHN AB 6650 <20.0 {Units} (Normal) Range: [...] T PROT 6.5 g/dL (Normal) Range: 6.4-8.2 6-Iif-802287:02 THYROID (HP) Radiology Report See Note (Normal) Comments: Exam Number: [id number] THYROID ULTRASOUND HISTORYThyromegaly. High-resolution, real-time linear images [...] is recommended. Reported By: TRUE NAGEL M.D. 73-Usi-149427:05 Blood Glucose , Office (97154) Blood Glucose , Office 135 (Normal) 47-Mzb-520995:05 HgA1C , Office (12037) HgA1C , Office 5.6 % (Normal) Range: 4.6 - 7.1 84-Eln-62713:02 CBCD,SMEAR DIFF ANISO 1+ (Normal) CELLS COUNTED [...] Report See Note (Normal) Comments: Exam Number: [id number] CT BRAIN WITHOUT AND WITH INTRAVENOUS CONTRAST [...] clinically warranted. Reported By: AIDAN MASON M.D. 07-Zpd-421618:30 CBCD Comments: CALL [phone] TO [phone] BASO% 0.8 % (Normal) Range: 0-1 EO% [...] Range: 4.4-11.0 :30 COMP METABOLIC Comments: CALL [phone] TO [phone] A/G 1.5 {RATIO} (Normal) Range: 0.9-2.4 ALB [...] T PROT 5.9 g/dL (Abnormal) Range: 6.4-8.2 84-Cvx-681273:30 LDH 206 U/L (Abnormal) Comments: CALL [phone] TO [phone] Range: 100-190 :30 URIC 5.7 mg/dL (Normal) Comments: CALL [phone] TO [phone] Range: 2.6-6.0 :30 CULT, DP WOUND Comments: [...] mg/dL (Abnormal) Range: 40-230 Comments: Performed At: [address] [id number] :[id number] LDH 211 U/L (Abnormal) Range: 100-190 4-May-43453:41 MG 1.6 mg/dL (Normal) Range: 1.5-2.2 :41 [...] K/mm3 (Abnormal) Range: 4.4-11.0 :30 AFB C&S 510033 Comments: Precautions*: CHEMO PRECAUTIONSSPECIMEN DESCRIPTION: #2 SAME [...] for testing. ec-2 BF/CSF (Normal) 0069 :30 80-Wwl-25211:30 FLUID P-FLU (Normal) Comments: OPERATION Not noted [...] DRAWN 07/22/06-TEST MISSED Range: 100-190 :51 SPE [id number] A/G RATIO 1.3 (Normal) Range: 0.7-2.0 ALBUMIN [...] Evidenceof monoclonal protein is not apparent.Performed At: [address] [id number] M-SPIKE SeeNote (Normal) Comments: Result: Not Observed NOTE: Comment (Normal) Comments: Protein electrophoresis scan will follow via mail orcourier. PROTEIN,TOTAL 6.5 g/dL (Normal) Range: 6.0-8.5 :49 Blood Glucose , Office (27892) Blood Glucose , Office 84 (Normal) :49 HgA1C , Office (24631) HgA1C , Office 6.6 % (Normal) Range: [...] Paroxysmal tachycardia Planned Observations METABOLIC PANEL, BASIC (10765)Indication: CHF (congestive heart failure) On: 51-Vlo-680912:05 Request CPK MB FRACTION (38548)Indication: SOB (shortness of breath) On: :21 Request Comments: stat ASSAY, TROPONIN, QUANTITATIVE (aka Troponin I) (62525)Indication: SOB (shortness of breath) On: :21 Request Comments: stat CBC W/AUTO DIFF WBC (33563)Indication: SOB (shortness of breath) On: :08 Request Comments: stat METABOLIC PANEL, COMPREHENSIVE (32630)Indication: SOB (shortness of breath) On: :08 Request Comments: stat D-Dimer (78360)Indication: SOB (shortness of breath) On: :08 Request Comments: stat BNTP (06114)Indication: SOB (shortness of breath) On: :08 Request Comments: stat CBC with auto diff (94835)Indication: Diabetes mellitus type II, controlled On: :03 Request LIPID PANEL (17939)Indication: Diabetes mellitus type II, controlled On: :03 Request METABOLIC PANEL, COMPREHENSIVE (16654)Indication: Diabetes mellitus type II, controlled On: :03 Request HGB A1C (85554)Indication: Diabetes mellitus type II, controlled On: :02 Request TSH (THYROID STIMULATING HORMONE) (99341)Indication: Acquired hypothyroidism On: : Request Metabolic Panel, Basic (38142)Indication: Hyponatremia On: 46-Ryu-081995:00 Request TSH (69180)Indication: Diabetes mellitus type II, controlled On: :48 Request Vitamin B-12 (cyanocobalamin) (87678)Indication: B12 deficiency On: : Request CBC WITH MANUAL DIFF (11851)Indication: B12 deficiency On: :45 Request T3, FREE (TRIDOTHYRONINE) (53052)Indication: Thyroid nodule On: 48 Request Comments: add to labs already drawn T4, FREE (THYROXINE) (97890)Indication: Thyroid nodule On: 47 Request Comments: add to labs already drawn Digoxin (41532)Indication: Cardiomyopathy On: 44 Request LIPID PANEL (59253)Indication: Mixed hyperlipidemia On: :43 Request TSH (03434)Indication: Acquired hypothyroidism On: :43 Request Vitamin D Hydroxy (91396)Indication: Vitamin D deficiency On: 43 Request GLVRZ-RIKFFBYERRI-UWALN (23624)Indication: Fatty liver On: :42 Request VITAMIN B-12 (CYANOCOBALAMIN) (77010)Indication: Fatigue On: 42 Request URINALYSIS, W/ MICRO (55072)Indication: Diabetes mellitus type II, controlled On: :30 Request MICROALBUMIN: CREATININE RATIO (59660) AND (39454)Indication: Diabetes mellitus type II, controlled On: : Request CBC with auto diff (31192)Indication: Diabetes mellitus type II, controlled On: : Request METABOLIC PANEL, COMPREHENSIVE (60807)Indication: Diabetes mellitus type II, controlled On: : Request HGB A1C (85317)Indication: Diabetes mellitus type II, controlled On: 70-Kxv-653878:29 Request HEPATIC FUNCTION PANEL (24334)Indication: Elevated liver enzymes On: 3-Cfr-352210:38 Request Comments: do in hospital tuesday when get US Metabolic Panel, Comprehensive (42931)Indication: Epigastric pain On: 13-Bpa-743303:54 Request Sed Rate Erythrocyte (52295)Indication: Epigastric pain On: :54 Request CBC, Platelets & Auto Diff (49398)Indication: Epigastric pain On: :54 Request OVA & PARASITE DIR SMEAR (94841)Indication: Diarrhea On: :53 Request OCCULT BLOOD FECES SCREEN (43762)Indication: Diarrhea On: :53 Request LEUKOCYTE COUNT, FECAL (33392)Indication: Diarrhea On: :53 Request C-DIFFICILE, STOOL (40020)Indication: Diarrhea On: :53 Request GENESIS CULTURE-STOOL (12227)Indication: Diarrhea On: :53 Request Magnesium (90888)Indication: Fatigue On: 07-Jvz-632416:42 Request Vitamin B-12 (cyanocobalamin) (17633)Indication: Fatigue On: 23-Hta-186585:41 Request MICROALBUMIN: CREATININE RATIO (89890) AND (08674)Indication: Diabetes mellitus type II, controlled On: 11-Nvd-571102:40 Request LIPID PANEL (59896)Indication: Mixed hyperlipidemia On: 17-Xvi-952529:39 Request CBC W/AUTO DIFF WBC (35318)Indication: Fatty liver On: 84-Dal-053651:30 Request METABOLIC PANEL, COMPREHENSIVE (59997)Indication: Fatty liver On: 45-Vtl-539254:30 Request Vitamin D Hydroxy (80873)Indication: Vitamin D deficiency On: 14-Npu-218388:30 Request TSH (42757)Indication: Acquired hypothyroidism On: 47-Ptg-422795:30 Request Digoxin (69888)Indication: Cardiomyopathy On: 71-Yoh-029923:29 Request LIPASE (91373)Indication: Epigastric pain On: :28 Request AMYLASE (58287)Indication: Epigastric pain On: 01-Foz-134844:28 Request URINE GENESIS CULTURE-IDENTIFICATN (68248)Indication: Leukocytes in urine On: 93-Ntu-546831:38 Request MICROALBUMIN: CREATININE RATIO (45241) AND (12781)Indication: Essential hypertension with goal blood pressure less than 130/80 On: :58 Request CBC W/AUTO DIFF WBC (61513)Indication: Essential hypertension with goal blood pressure less than 130/80 On: :58 Request METABOLIC PANEL, COMPREHENSIVE (12515)Indication: Essential hypertension with goal blood pressure less than 130/80 On: :58 Request KPBDJ-RVJDOUCMGTH-ODNVB (20670)Indication: Abnormal tumor markers On: :57 Request Vitamin D Hydroxy (63039)Indication: Vitamin D deficiency On: :09 Request LIPOPROTEIN, BLD, BY NMR (05871)Indication: Mixed hyperlipidemia On: :09 Request CBC W/AUTO DIFF WBC (78746)Indication: Diabetes mellitus type II, controlled On: :09 Request METABOLIC PANEL, COMPREHENSIVE (46108)Indication: Diabetes mellitus type II, controlled On: :09 Request Potassium Serum (90153)Indication: Hypopotassemia On: 55-Oyy-310170:02 Request GFAXI-UWCDZPUPCZU-HUNHI (87853)Indication: Fatty liver On: 03-Oep-277965:57 Request MICROALBUMIN: CREATININE RATIO (83330) AND (20053)Indication: Essential hypertension with goal blood pressure less than 130/80 On: :45 Request CBC W/AUTO DIFF WBC (37523)Indication: Essential hypertension with goal blood pressure less than 130/80 On: :45 Request METABOLIC PANEL, COMPREHENSIVE (76211)Indication: Essential hypertension with goal blood pressure less than 130/80 On: :45 Request Vitamin D Hydroxy (69033)Indication: Vitamin D deficiency On: :45 Request TSH (26281)Indication: Acquired hypothyroidism On: :45 Request LIPID PANEL (95633)Indication: Mixed hyperlipidemia On: :45 Request CBC W/AUTO DIFF WBC (93394)Indication: Diabetes mellitus type II, controlled On: :28 Request BMVBU-HRUUZMLPRMJ-ENVNB (99373)Indication: Fatty liver On: : Request METABOLIC PANEL, COMPREHENSIVE (46376)Indication: Mixed hyperlipidemia On: : Request LIPOPROTEIN, BLD, BY NMR (93617)Indication: Mixed hyperlipidemia On: : Request Metabolic Panel, Basic (61610)Indication: Hypopotassemia On: :55 Request Comments: 10 days CBC (AUTO) (55298)Indication: Uncontrolled type II diabetes mellitus On: : Request Vitamin D Hydroxy (77714)Indication: Vitamin D deficiency On: : Request MICROALBUMIN: CREATININE RATIO (83170) AND (11375)Indication: Uncontrolled type II diabetes mellitus On: : Request METABOLIC PANEL, COMPREHENSIVE (11700)Indication: Essential hypertension with goal blood pressure less than 130/80 On: : Request DIBUQ-WPABXOCOPXC-BPOPP (25090)Indication: Fatty liver On: : Request LIPID PANEL (57483)Indication: Mixed hyperlipidemia On: : Request TSH (07371)Indication: Thyroid nodule On: : Request CBC W/AUTO DIFF WBC (19707)Indication: Uncontrolled type II diabetes mellitus On: :47 Request METABOLIC PANEL, COMPREHENSIVE (54395)Indication: Uncontrolled type II diabetes mellitus On: :47 Request LIPID PANEL (94680)Indication: Mixed hyperlipidemia On: :47 Request Vitamin D Hydroxy (09475)Indication: Vitamin D deficiency On: :47 Request QAGWR-GHYUGYFBDUF-RYMEV (85093)Indication: Fatty liver On: : Request CBC W/AUTO DIFF WBC (92417)Indication: Uncontrolled type II diabetes mellitus On: :26 Request LIPID PANEL (98515)Indication: Mixed hyperlipidemia On: :25 Request MICROALBUMIN: CREATININE RATIO (09769) AND (51622)Indication: Uncontrolled type II diabetes mellitus On: :25 Request TSH (47288)Indication: Acquired hypothyroidism On: :25 Request METABOLIC PANEL, COMPREHENSIVE (83882)Indication: Essential hypertension with goal blood pressure less than 130/80 On: :25 Request Vitamin D Hydroxy (26513)Indication: Vitamin D deficiency On: :25 Request CALCIFEDIOL (40806)Indication: Vitamin D deficiency On: 14-Baj-288763:44 Request Comments: to be done Jun 2015 after done with ergocalciferol URINE GENESIS CULTURE (NITA COL COUNT) (09339)Indication: UTI (lower urinary tract infection) On: 3-Bhv-123873:22 Request LIPID PANEL (09816)Indication: Mixed hyperlipidemia On: 0-Aie-099698:15 Request CBC W/AUTO DIFF WBC (44405)Indication: Uncontrolled type II diabetes mellitus On: 5-Qci-644835:14 Request METABOLIC PANEL, COMPREHENSIVE (64845)Indication: Uncontrolled type II diabetes mellitus On: 2-Hjd-559807:14 Request TSH (12283)Indication: Acquired hypothyroidism On: 2-Kbr-833915:14 Request CRPKS-TFCOIFPICBQ-CFSRV (76705)Indication: Fatty liver On: 4-Vhq-976875:14 Request CBC, Platelets & Auto Diff (63648)Indication: HX, PERSONAL, MALIGNANCY, LYMPHATIC NEC On: 24-Azn-76786:07 Request CBC WITH MANUAL DIFF (37959)Indication: Abnormal glucose tolerance test On: :33 Request MICROALBUMIN: CREATININE RATIO (89492) AND (73431)Indication: Abnormal glucose tolerance test On: :33 Request LIPID PANEL (52201)Indication: Mixed hyperlipidemia On: :31 Request METABOLIC PANEL, COMPREHENSIVE (27647)Indication: Abnormal glucose tolerance test On: :31 Request URINE GENESIS CULTURE-NITA COL COUNT (37191)Indication: Dysuria On: 21-Bgp-275498:03 Request RETICULOCYTE COUNT (31072)Indication: Anemia On: :37 Request Iron (51526)Indication: Anemia On: :37 Request Ferritin (35502)Indication: Anemia On: :37 Request CBC (Auto) (88429)Indication: Anemia On: :37 Request CBC, Platelets & Auto Diff (65092)Indication: Fever On: :03 Request Metabolic Panel, Comprehensive (62976)Indication: Fever On: :03 Request HgA1C , Office (00955)Indication: Abnormal glucose tolerance test On: :55 Request CBC WITH MANUAL DIFF (17221)Indication: Abnormal glucose tolerance test On: :53 Request METABOLIC PANEL, COMPREHENSIVE (53708)Indication: Abnormal glucose tolerance test On: :53 Request LIPID PANEL (92802)Indication: Mixed hyperlipidemia On: :53 Request UCVJL-YQLKPQDPPQA-ZVTPB (29702)Indication: Fatty liver On: :53 Request PTT (Activated Partial Thromboplastin Time) (45726)Indication: Fatty liver On: :53 Request PT (Prothrobim Time) (44551)Indication: Fatty liver On: :53 Request MICROALBUMIN: CREATININE RATIO (58082) AND (06127)Indication: Abnormal glucose tolerance test On: 30-Dul-791296:49 Request Anti-TPO Antibody (08903)Indication: Acquired hypothyroidism On: 23-Foz-856897:14 Request Comments: 1 month TSH (31375)Indication: Acquired hypothyroidism On: 45-Xlk-150621:13 Request Comments: 1 month T4, FREE (THYROXINE) (32631)Indication: Acquired hypothyroidism On: :13 Request Comments: 1 month T3, FREE (TRIDOTHYRONINE) (36710)Indication: Acquired hypothyroidism On: 35-Kpq-086675:13 Request Comments: 1 month CBC WITH MANUAL DIFF (03932)Indication: Abnormal glucose tolerance test On: :38 Request METABOLIC PANEL, COMPREHENSIVE (26763)Indication: Abnormal glucose tolerance test On: :38 Request LIPID PANEL (53459)Indication: Mixed hyperlipidemia On: :38 Request MICROALBUMIN: CREATININE RATIO (36686) AND (92744)Indication: Abnormal glucose tolerance test On: 56-Urf-914518:56 Request CBC WITH MANUAL DIFF (59201)Indication: Elevated LFTs On: 96-Rlc-696821:56 Request METABOLIC PANEL, COMPREHENSIVE (43535)Indication: Elevated LFTs On: 25-Aye-664769:56 Request LIPID PANEL (21513)Indication: Mixed hyperlipidemia On: 03-Iuq-249038:56 Request TSH (56918)Indication: Acquired hypothyroidism On: 81-Rqg-926622:56 Request CBC WITH MANUAL DIFF ([id number])Indication: Essential hypertension with goal blood pressure less than 130/80 On: :34 Request TSH ([id number])Indication: Acquired hypothyroidism On: :34 Request METABOLIC PANEL, COMPREHENSIVE ([id number])Indication: Fatty liver On: :33 Request LIPID PANEL ([id number])Indication: Mixed hyperlipidemia On: :33 Request MICROALBUMIN: CREATININE RATIO ([id number]) AND ([id number])Indication: Uncontrolled type II diabetes mellitus On: :46 Request TSH ([id number])Indication: Acquired hypothyroidism On: :46 Request LIPID PANEL ([id number])Indication: Mixed hyperlipidemia On: :45 Request METABOLIC PANEL, COMPREHENSIVE ([id number])Indication: Elevated LFTs On: :45 Request HgA1C , Office ([id number])Indication: Uncontrolled type II diabetes mellitus On: :28 Request URINE GENESIS CULTURE-NITA COL COUNT ([id number])Indication: Cystitis, acute On: :43 Request URINE GENESIS CULTURE-IDENTIFICATN ([id number])Indication: Dysuria On: :10 Request CBC WITH MANUAL DIFF ([id number])Indication: Headache On: 79-Alm-772851:56 Request METABOLIC PANEL, COMPREHENSIVE ([id number])Indication: Headache On: 62-Opu-930828:56 Request LIPID PANEL ([id number])Indication: Mixed hyperlipidemia On: 45-Bpl-406197:56 Request TSH ([id number])Indication: Acquired hypothyroidism On: 18-Ieu-469438:56 Request METABOLIC PANEL, COMPREHENSIVE ([id number])Indication: Uncontrolled type II diabetes mellitus On: 17-Cnc-536588:28 Request HEPATIC FUNCTION PANEL ([id number])Indication: Mixed hyperlipidemia On: : Request LIPID PANEL ([id number])Indication: Mixed hyperlipidemia On: : Request LIPID PANEL ([id number])Indication: Mixed hyperlipidemia On: :39 Request MICROALBUMIN: CREATININE RATIO ([id number]) AND ([id number])Indication: Uncontrolled type II diabetes mellitus On: 39 Request CBC WITH MANUAL DIFF ([id number])Indication: Essential hypertension with goal blood pressure less than 130/80 On: :39 Request METABOLIC PANEL, COMPREHENSIVE ([id number])Indication: Elevated LFTs On: :39 Request TSH ([id number])Indication: Acquired hypothyroidism On: :36 Request TSH ([id number])Indication: Thyroid nodule On: :20 Request METABOLIC PANEL, COMPREHENSIVE ([id number])Indication: Elevated LFTs On: : Request LIPID PANEL ([id number])Indication: Mixed hyperlipidemia On: : Request C-REACTIVE PROTEIN ([id number])Indication: Abnormal findings on diagnostic imaging of other specified body structures On: 19-Vho-119171: Request SED RATE ERYTHROCYTE ([id number])Indication: Abnormal findings on diagnostic imaging of other specified body structures On: 63-Ydy-060755: Request LDH (LD) (LACTATE DEHYDROGENASE) ([id number])Indication: Abnormal findings on diagnostic imaging of other specified body structures On: 34-Vzg-831105: Request Urine Protein Electrophoresis (UPEP) ([id number])Indication: Abnormal findings on diagnostic imaging of other specified body structures On: 38-Sbh-211050: Request Serum Protein Electrophoresis (SPEP) (65205)Indication: Abnormal findings on diagnostic imaging of other specified body structures On: 02-Rjo-102969: Request METABOLIC PANEL, COMPREHENSIVE ([id number])Indication: Diabetes mellitus type II, controlled On: : Request LIPID PANEL ([id number])Indication: Mixed hyperlipidemia On: : Request URINE GENESIS CULTURE-NITA COL COUNT ([id number])Indication: Dysuria On: 61-Uuk-930437:58 Request HEPATIC FUNCTION PANEL ([id number])Indication: Elevated LFTs On: :18 Request LIPID PANEL ([id number])Indication: Mixed hyperlipidemia On: 90-Gia-276135:17 Request MICROALBUMIN: CREATININE RATIO ([id number]) AND ([id number])Indication: Uncontrolled type II diabetes mellitus On: 4-Wln-458126:47 Request CBC WITH MANUAL DIFF ([id number])Indication: Uncontrolled type II diabetes mellitus On: 8-Rto-026782:47 Request METABOLIC PANEL, COMPREHENSIVE ([id number])Indication: Uncontrolled type II diabetes mellitus On: 1-Teb-581485:47 Request HEPATIC FUNCTION PANEL ([id number])Indication: Elevated LFTs On: 6-Eoz-395566:45 Request LIPID PANEL ([id number])Indication: Mixed hyperlipidemia On: 5-Cac-477070:44 Request HEPATIC FUNCTION PANEL ([id number])Indication: Fatty liver On: 2-Xkd-598207:30 Request LIPID PANEL ([id number])Indication: Mixed hyperlipidemia On: 1-Uod-438048:30 Request URINE GENESIS CULTURE (NITA COL COUNT) ([id number])Indication: Low back pain potentially associated with radiculopathy On: 67-Osw-417996:03 Request MICROALBUMIN: CREATININE RATIO ([id number]) AND ([id number])Indication: Dysuria On: 91-Wxk-080429:05 Request LIPID PANEL ([id number])Indication: Dysuria On: 03-Vcm-453671:05 Request TSH ([id number])Indication: Dysuria On: 23-Xpu-024089:05 Request METABOLIC PANEL, COMPREHENSIVE ([id number])Indication: Dysuria On: 56-Gqn-694499:04 Request CBC WITH MANUAL DIFF ([id number])Indication: Dysuria On: 63-Xef-239171:04 Request URINE GENESIS CULTURE-NITA COL COUNT ([id number])Indication: Dysuria On: 75-Ccv-473125:45 Request URINE GENESIS CULTURE (NITA COL COUNT) ([id number])Indication: Dysuria On: 39-Ebp-836511:17 Request METABOLIC PANEL, COMPREHENSIVE ([id number])Indication: Fatty liver On: 53-Kjs-07477:58 Request Magnesium ([id number])Indication: Palpitations On: 34-Bha-51464:51 Request TSH ([id number])Indication: Palpitations On: 08-Gvo-66822:51 Request METABOLIC PANEL, COMPREHENSIVE ([id number])Indication: Palpitations On: 04-Xra-12776:51 Request CBC WITH MANUAL DIFF ([id number])Indication: Palpitations On: 17-Bgk-73668:51 Request GGT (Gamma Glutamyl Transferase) ([id number])Indication: Elevated LFTs On: 39-Mgy-713659:16 Request HEPATIC FUNCTION PANEL ([id number])Indication: Elevated LFTs On: 89-Fza-308768:16 Request VITAMIN B-12 (CYANOCOBALAMIN) ([id number])Indication: Fatigue On: 30-Tfi-01986:23 Request MICROALBUMIN URINE QUANT ([id number])Indication: Diabetes mellitus type II, controlled On: :22 Request TSH ([id number])Indication: Fatigue On: :22 Request CBC WITH MANUAL DIFF ([id number])Indication: Diabetes mellitus type II, controlled On: :22 Request METABOLIC PANEL, COMPREHENSIVE ([id number])Indication: Diabetes mellitus type II, controlled On: :22 Request LIPID PANEL ([id number])Indication: Mixed hyperlipidemia On: :22 Request HEPATIC FUNCTION PANEL ([id number])Indication: Mixed hyperlipidemia On: 04-Aev-714003:48 Request LIPID PANEL ([id number])Indication: Mixed hyperlipidemia On: 19-Zhw-410021:48 Request Comments: in 3 mos Planned Encounters Medical; [facility] 1 Month FU - On: 12-Sep-2018 8:00 [facility] Fast DO, Sangeetha A Fast DO, Sangeetha A Medical; Overnight Pulse Ox Placement - On: 20-Sep-2018 13:00 [facility] Visit, Nurse Planned Procedures Echo CompleteBy: Fast DO, Sangeetha A On: 04-Sep-2018 Intent Fast DO, Sangeetha A CTA CHEST W/W/O CONTRAST ([id number])By: On: 04-Sep-2018 Intent Fast DO, Sangeetha A Fast DO, Sangeetha A Overnight Pulse OX ([id number])By: Fast On: 04-Sep-2018 Intent DO, Sangeetha A Fast DO, Sangeetha A Spirometry ([id number])By: Fast DO, On: 04-Sep-2018 Intent Sangeetha A Fast DO, Sangeetha A Comments: difficutly with insp effort severe restriction ELECTROCARDIOGRAM, COMPLETE (ECG) On: 04-Sep-2018 Intent ([id number])By: Fast DO, Sangeetha A Fast DO, Comments: ekg- 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 and possible recent anterior wall mi- nonspecific st depression Sangeetha A Flu Vaccine (Quadrivalent) 36093Zn: On: 21-Jul-2018 Intent Fast DO, Sangeetha A Fast DO, Sangeetha A SCREENING DIGITAL TOMOSYNTHESIS OF On: 21-Jul-2018 Intent BREAST ([id number])By: Fast DO, Sangeetha A Fast DO, Sangeetha A B 12 Injection, 1000 mcg ([id number])By: On: 31-May-2018 Intent Fast DO, Sangeetha A Fast DO, Sangeetha A Comments: Lot#[id number] EXP:[id number] given:left deltoid Given By: clarita albright ABN signed CT - Abdomen (IV Contrast Needed)By: On: 31-May-2018 Intent Fast DO, Sangeetha A Fast DO, Sangeetha A Doppler Ultrasound OtherBy: Fast DO, On: 19-May-2018 Intent Sangeetha A Fast DO, Sangeetha A Comments: left arm ULTRASOUND OF LIVER ([id number])By: On: 24-Feb-2018 Intent Blanca KING, Jennifer Gregory PFT - CompleteBy: Fast DO, Sangeetha A On: 21-Oct-2017 Intent Fast DO, Sangeetha A Comments: at [facility] SCREENING DIGITAL TOMOSYNTHESIS OF On: 21-Oct-2017 Intent BREAST ([id number])By: Fast DO, Sangeetha A Comments: end of oct Fast DO, Sangeetha A EsophagramBy: Fast DO, Sangeetha A Fast On: 21-Oct-2017 Intent DO, Sangeetha A Comments: with 12 mm tablet ELECTROCARDIOGRAM, COMPLETE (ECG) On: 21-Oct-2017 Intent ([id number])By: Fast DO, Sangeetha A Fast DO, Sangeetha A Flu Vaccine (Quadrivalent) 42491Xo: On: 07-Jun-2017 Intent Fast DO, Sangeetha A [...] DO, Sangeetha A DEXA SCAN AXIAL SKELETON ([id number])By: On: 16-Aug-2016 Intent Fast DO, Sangeetha A Fast DO, Sangeetha A MAMMOGRAM, SCREENING, BOTH BREAST On: 16-Aug-2016 Intent ([id number])By: Fast DO, Sangeetha A Fast DO, Sangeetha A ELECTROCARDIOGRAM, COMPLETE (ECG) On: 16-Aug-2016 Intent ([id number])By: Fast DO, Sangeetha A Fast DO, Sangeetha A Flu Vaccine (Quadrivalent) 31276Yq: On: 16-Aug-2016 Intent Fast DO, Sangeetha A Fast DO, Sangeetha A Comments: FLUlot: [id number]/09site:Lt deltoidroute:IMdose:.5mlDE[facility] [place] ADMIN[facility]ATION OF INFLUENZA VIRUS On: 16-Aug-2016 Intent VACCINE ([id number])By: Fast DO, Sangeetha A Fast DO, Sangeetha A Ultrasound - ThyroidBy: Fast DO, On: 10-Nov-2015 Intent Sangeetha A Fast DO, Sangeetha A Ultrasound - LiverBy: Fast DO, Sangeetha On: 10-Nov-2015 Intent A Fast DO, Sangeetha A Flu Vaccine (Quadrivalent) 46861Ns: On: 08-Aug-2015 Intent Fast DO, Sangeetha A Fast DO, Sangeetha A Comments: Lot #[id number]-L dltd, IMDose prefilled syringegiven by:AMRITA JassoNVIS and ABN signed MAMMOGRAM, SCREENING, BOTH BREAST On: 08-Aug-2015 Intent ([id number])By: Fast DO, Sangeetha A Fast DO, Sangeetha A Ultrasound - ThyroidBy: Fast DO, On: 08-Aug-2015 Intent Sangeetha A Fast DO, Sangeetha A Ultrasound - LiverBy: Fast DO, Sangeetha On: 08-Aug-2015 Intent A Fast DO, Sangeetha A ADMINISTRATION OF PNEUMOCOCCAL On: 01-Nov-2014 Intent VACCINE (G0009)By: Fast DO, Sangeetha A Fast DO, Sangeetha A PNEUM VAC ADLT/IMUMNOSPR, SBC/INTRM On: 01-Nov-2014 Intent ([id number])By: Fast DO, Sangeetha A Fast DO, Comments: Lot:[id number]:02/29/16Dose:0.5mgRoute:imSite:mk Donis By:BATSHEVA Diaz Ultrasound - LiverBy: Fast DO, Sangeetha On: 05-Jul-2014 Intent A Fast DO, Sangeetha A BILATERAL MAMMOGRAMS ([id number])By: Tavon On: 05-Jul-2014 Intent DO, Sangeetha A Fast DO, Sangeetha A Ultrasound - ThyroidBy: Fast DO, On: 05-Jul-2014 Intent Sangeetha A Fast DO, Sangeetha A ADMINISTRATION OF INFLUENZA VIRUS On: 05-Jul-2014 Intent VACCINE (G0008)By: Tavon DAVIS Sangeetha A Comments: Influenzalot:[id number]:03/25/2015dose:0.5mLRoute: IMlocation:Lois donis by:marika Fast DO, Sangeetha A FLU VAC, SPLIT, >3 YEARS, INTRAMUSC On: 05-Jul-2014 Intent ([id number])By: Sangeetha Irvin DO Fast DO, Sangeetha A INFUSION, NORMAL SALINE SOLUTION , On: 15-Apr-2014 Intent 250 CC ([id number])By: Angelina Winn CNP Rocephon Injection, 1 Gm (J0696)By: On: 15-Apr-2014 Intent Angelina Winn CNP Comments: Rocephin 1gmLot #[id number]. [id number] in R hand x 1 stick with [...] SPLIT, >3 YEARS, INTRAMUSC On: 27-Jul-2013 Intent ([id number])By: Fast DO, Sangeetha A Fast DO, Sangeetha A Eprescribed prescriptions ([id number])By: On: 04-Jun-2013 Intent Delisa Melendez LPN SPECIMEN HANDLING/TRANSPORT On: 04-Jun-2013 Intent (75065)By: Delisa Melendez LPN INFUSION, NORMAL SALINE SOLUTION , On: 15-Feb-2013 Intent 1000 CC (Special Coverage Comments: 500 cc Instructions Apply. See MCM: 2049) ([id number])By: Jennifer Rios MD HYDRATION IV INFUSION, INIT On: 15-Feb-2013 Intent ([id number])By: Jennifer Rios MD Ultrasound - ThyroidBy: Fast DO, On: 19-Jan-2013 Intent Sangeetha A Fast DO, Sangeetha A MAMMOGRAM, SCREENING, BOTH BREASTS On: 19-Jan-2013 Intent (47062)By: Fast DO, Sangeetha A Fast DO, Comments: due in january Sangeetha A Eprescribed prescriptions ([id number])By: On: 19-Jan-2013 Intent Isabella Grigsby Pulse Oximetry ([id number])By: Seb, On: 29-Sep-2012 Intent Isabella Comments: 98% [...] MAMMOGRAM, SCREENING, BOTH BREASTS On: 24-Jan-2012 Intent ([id number])By: Fast DO, Sangeetha A Fast DO, Sangeetha A TDAP VACCINE >7 IM ([id number])By: Fast On: 04-Oct-2011 Intent DO, Sangeetha A Fast DO, Sangeetha A Comments: Lot:[id number]:08/12/13Amt:prefilledRoute:IMSite:right deltGiven By: NATALEE Spence Aerosol Treatment (65696)By: Blanca On: 26-Aug-2011 Intent Jennifer KING Pulse Oximetry (03498)By: Blanca On: 26-Aug-2011 Intent Jennifer KING SPECIMEN HANDLING/TRANSPORT On: 23-Jul-2011 Intent (22545)By: Delisa Melendez LPN FLU VAC, SPLIT, >3 YEARS, INTRAMUSC On: 05-Jul-2011 Intent (70291)By: Isabella Grigsby Comments: Lot #[id number]/20/12Site-left deltoidgiven by: Lisa Bello LPN Ultrasound - ThyroidBy: Fast DO, On: 05-Jul-2011 Intent Sangeetha A Fast DO, Sangeetha A MAMMOGRAM, SCREENING, BOTH BREASTS On: 05-Jul-2011 Intent ([id number])By: Fast DO, Sangeetha A Fast DO, Sangeetha A ADMINISTRATION OF INFLUENZA VIRUS On: 05-Jul-2011 Intent VACCINE (G0008)By: Isabella Grigsby Eprescribed prescriptions (G8553)By: On: 04-Jun-[address] - Brain/HeadBy: Fast DO, Sangeetha A On: 07-Oct-2010 Intent Fast DO, Sangeetha A Comments: with and without contrast MAMMOGRAM, SCREENING, BOTH BREASTS On: 26-Jun-2010 Intent ([id number])By: Fast DO, Sangeetha A Fast DO, Sangeetha A ADMINISTRATION OF INFLUENZA VIRUS On: 26-Jun-2010 Intent VACCINE (G0008)By: Fast DO, Sangeetha A Fast DO, Sangeetha A FLU VAC, SPLIT, >3 YEARS, INTRAMUSC On: 26-Jun-2010 Intent ([id number])By: Fast DO, Sangeetha A Fast DO, Comments: Lot:[id number] 4PExp:12/2010Dose:0.5mlRoute:IMSite:Left DeltoidGiven by: HEIDI Alberto Ultrasound - ThyroidBy: Fast DO, On: 07-Jan-2010 Intent Sangeetha A Fast DO, Sangeetha A CT - Spine/CervicalBy: Fast DO, On: 15-Dec-2009 Intent Sangeetha A Fast DO, Sangeetha A Comments: 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 -- need to rule out Pulse Oximetry ([id number])By: Fast DO, On: 09-Jul-2009 Intent Sangeetha A Fast DO, Sangeetha A Spirometry (26240)By: Fast DO, On: 10-Jul-2009 Intent Sangeetha A Fast DO, Sangeetha A Comments: good effort and curve- mild restriciton Radiology - Chest- PA and LatBy: On: 09-Jul-2009 Intent Fast DO, Sangeetha A Fast DO, Sangeetha A Pulse Oximetry ([id number])By: Fast DO, On: 10-Jul-2009 Intent Sangeetha A Fast DO, Sangeetha A Comments: 98 FLU VAC, SPLIT, >3 YEARS, INTRAMUSC On: 09-Jul-2009 Intent ([id number])By: Isabella Grigsby Comments: Lot #[id number]-right deltoidDose0.5mlgiven by Juventino Nye LPN IMMUNIZ ADMNIN, 1 VAC, SNGL/COMBO On: 09-Jul-2009 Intent (50197)By: Isabella Grigsby EKG (28750)By: Fast DO, Sangeetha A On: 10-Oct-2008 Intent [...] ADMNIN, 1 VAC, SNGL/COMBO On: 10-Jul-2008 Intent ([id number])By: Fast DO, Sangeetha A Fast DO, Sangeetha A FLU VAC, SPLIT, >3 YEARS, INTRAMUSC On: 10-Jul-2008 Intent ([id number])By: Fast DO, Sangeetha A Fast DO, Comments: injection given in left deltoid, pt tolerated welllot # [id number]/ Sangeetha A Holter Monitor 24 hrsBy: Fast DO, On: 10-Jul-2008 Intent Sangeetha A Fast DO, Sangeetha A EKG (15953)By: Marlene Reddy On: 10-Jul-2008 Intent Comments: ekg [...] some palps- supposed to see rosetta in [facility] Diagnosis: BMI 31.0-31.9,adult, Nonsmoker, SOB (shortness [...] using tylenol and will go back to [place] if need be for shot-sugar fine-n foot [...] off metformin and lisinopril andthen went to [place] for couple weeks then had multiple falls sent back to hospital and transferred to [place] [facility] weeks then to [facility] had lots of pt- and doing [...] fasting blood sugars : (was lower before [place] and 139 last week fasting in the [...] Reason for hospitalization abdominal pain (Went to [facility] on 02/28/15). Hospitalization details [...] are more recent blood results from Dr. Mnédez if needed). Encounter Diagnosis: Type II Diabetes,uncontrolled [...] previously evaluated by a primary physician (at [facility]- Dr Reyes ). Presentation included lid [...] is helping her mood- has followup in [place] may 04 - her weight down 20 [...] of all the problems -goes back to [facility] on tuesday and psych in 2 [...] or less). 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
--- OUTSIDE RECORDS SUMMARY | 2018-10-21 23:32 | XMS RPT_ITS | Continuity of Care Document ---
:1965 Author Organization [facility] Address [facility] [address] [place] [address] Phone Care Team Providers Name Role Phone [...] Status: Active Elevated liver enzymes (R74.8, 790.5) Status: Active Encounter for hepatitis C virus [...] Uncontrolled type II diabetes mellitus (E11.65, 250.02) Status: Active Unspecified Diagnosis Status: Active Upper [...] DO, Sangeetha A Start : 21-Jul-2018 Active Januvia 100 MG Oral Tablet 1 (one) Tablet qd for 0 days Quantity: 90 {Tablet} Refills: 0 Ordered:12-Sep-2018 DO, Sangeetha AFast DO, Sangeetha A Start : 12-Sep-2018 Active Klor-Con M20 20 MEQ Oral Tablet Extended Release 1 (one) Tablet ER bid for 30 days Quantity: 60 {Tablet} Refills: 3 Ordered:08-Sep-2018 DO, Sangeetha AFast DO, Sangeetha A Start : 08-Sep-2018 Active LamoTRIgine 150 MG Oral Tablet 1 (one) Tablet qhs for 30 days Quantity: 30 {Tablet} Refills: 3 Ordered:07-Jun-2018 Fast DO, Sangeetha AFast DO, Sangeetha A Start : 07-Jun-2018 Active Lasix 40 MG Oral Tablet 2 (two) Tablet bid for 30 days Quantity: 30 {Tablet} Refills: 4 Ordered:04-Sep-2018 Fast DO, Sangeetha AFast DO, Sangeetha A Start : 04-Sep-2018 Active [...] days Quantity: 90 {Capsule} Refills: 3 Ordered:11-Sep-2018 , Sangeetha العراقي DO, Sangeetha A Start : 11-Sep-2018 Active OXYGEN (Nasal Gas) (Free Text) 1 (one) Gas 2L NC QHS for 30 days Quantity: 30 {QS} Refills: 11 Ordered:12-Sep-2018 Sangeetha DAVIS DO, Sangeetha A Start : 12-Sep-2018 Active Comments:Home Oxygen: Per overnight pulse ox, [...] Quantity: 30 {Tablet} Refills: 3 Ordered:14-Aug-2018 Sangeetha DAVIS DO, Sangeetha A Start : 14-Aug-2018 Active Spironolactone 50 MG Oral Tablet 1 (one) Milligram qd for 30 days Quantity: 30 {Milligram} Refills: 3 Ordered:08-Sep-2018 , Sangeetha العراقي DO, Sangeetha A Start : 08-Sep-2018 Active Synthroid 75 MCG Oral Tablet 1 (one) Tablet qd and 2 tabs on tuesday for 90 days Quantity: 102 {Tablet} Refills: 3 Ordered:21-Jul-2018 , Sangeetha العراقي DO, Sangeetha A Start : 21-Jul-2018 Active Vitamin D3 5000 UNIT Oral Capsule 1 (one) Capsule Capsule qod for 0 days Quantity: 30 {Capsule} Refills: 3 Ordered:01-Mar-2017 , aSngeetha العراقي DO, Sangeetha A Start : 01-Mar-2017 Active Zofran 4 MG Oral Tablet 1 (one) Tablet Tablet every 8 hours prn nausea vomting for 0 days Quantity: 10 {Tablet} Refills: 0 Ordered:23-Feb-2018 Long DATA ENTRY SPECIALIST, Amelia L Start : 23-Feb-2018 Active AMITIZA, [...] days Quantity: 21 {Capsule} Refills: 0 Ordered:04-Sep-2018 DO, Sangeetha AFast DO, Sangeetha A Start [...] : 25-Jan-2018 End : 19-May-2018 Inactive ERGOCALCIFEROL, 88022QVWF (Oral Capsule) 1 (one) Capsule Capsule twice [...] days Quantity: 20 {Capsule} Refills: 0 Ordered:23-Jul-2011 Tatum SAUCEDOAngelina Start : 23-Jul-2011 End : 02-Aug-2011 Inactive MAXITROL, 3.5-46612-8.1 (Ophthalmic Ointment) apply to eye lids as [...] hs (50 MG) Inactive Comments:Dr. Hankins NYSTATIN, 762142PMUL/ML (Mouth/Throat Suspension) 5cc Suspension 5 times daily [...] Quantity: 20 {Tablet} Refills: 0 Ordered:04-Jun-2013 Delisa Melenedz LPN Start : 15-Feb-2013 End : 04-Jun-2013 [...] (Oral Tablet Delayed Release) [address] veda 1/2 hour prior to eating for 0 [...] Quantity: 30 {Tablet} Refills: 0 Ordered:19-May-2018 Long DATA ENTRY SPECIALISTAmelia Start : 12-May-2012 End : 19-May-2018 Discontinued Comments:This order discontinued per [facility]. ZOFRAN ODT, 4MG (Oral Tablet Dispersible) qd prn nausea (4 MG) End : 08-Aug-2015 Discontinued Comments:[facility] Allergies and Adverse Reactions Name Dates Details [...] w/ Contrast Result: Comments: See Note; NOTES: [facility] Cardiovascular Services [address] [place] [address] Echo Complete W/ Contrast 09/06/18 1002 MR#: [id number] Acct: [id number] Name: IFEOMA DÍAZ Rep #: [id number] : 1965 53 From: Boone Ch MD Attending Dr: Sangeetha Irvin DO Status: REG CLI Ordering Dr: Sangeetha Irvin DO Date: 09/06/18 Location: [facility] Sex: F C Admitted: Reason F [...] Dictated: 09/06/18 1002 Date Transcribed: 09/06/18 1534 Precision Inspector: Signed 04-Sep-2018 CTA Chest W/WO Contrast Result: Comments: See Note; NOTES: [facility] Imaging Services [address] [place] [address] CTA Chest W/WO Contrast MR#: [id number] Acct: [id number] Name: IFEOMA ASHRAF Rep #: [id number] : 1965 F 53 From: Ziggy Santos MD PCP: Sangeetha Irvin DO Status: REG CLI Study: CTA Chest W/WO Contrast Date of Exam: 09/04/18 Exam# [id number] Ordering Dr: Sangeetha Irvin DO STUDY: CTA [...] Service support , CC: Sangeetha Irvin DO Precision Inspector: Signed 14-Jul-2018 Chest PA and Lateral Result: Comments: See Note; NOTES: [facility] Imaging Services [address] [place] [address] Chest PA and Lateral MR#: [id number] Acct: [id number] Name: MARIOIFEOMA ALAN Ashok Rep #: [id number] : 1965 F 53 From: Dimitris Valderrama DO PCP: Sangeetha Irvin DO Status: REG CLI Study: Chest PA and Lateral Date of Exam: 07/14/18 Exam# [id number] Ordering Dr: Shahrzad Todd MACHINE STOPPAGE FREQUENCY CHECKER-C STUDY: X-RAY CHEST REASON FOR EXAM: Female, [...] or interval change. Electronically Signed: Dimitris Valderrama at 8:47 EDT Tel [phone], Service support , CC: NUNU Todd; Sangeetha Irvin DO Precision Inspector: Signed 10-Jun-2018 Pacemaker Check Result: Comments: See Note; NOTES: [facility] [address] [place] [address] Pacemaker Check Date of Service: 06/09/18908 MR#: [id number] Acct: [id number] Name: IFEOMA ASHRAF Rep #: [id number] : 1965 From: Danica Pickering Age/Sex: 53/F Location: [facility] [place] Status: Signed Billing Codes ICD Device Billing: ICD Dev Prog Eval, Single 06/09/18 0913 <Elec tronically signed by Danica Pickering > Date Danica Pickering 06/10/18 1406<Electronically signed by Boone Ch MD> Cosigner Signat ure: Date (if applicable) Boone Ch MD CC: 08-Jun-2018 Cardiology Visit Report Result: Comments: See Note; NOTES: [facility] [address] [place] [address] OFFICE VISIT Date of Service: 05/31/18 MR#: [id number] Acct: [id number] Name: IFEOMA ASHRAF Rep #: [id number] : 1965 Provider: NUNU Todd Age/Sex: 53/F [facility] Status: Signed with Addenda ADDENDUM by NUNU Todd on 06/01/18 at 0746 Addendum entered and electronic ally signed by LUPE Black 06/01/18 07:46: Patient's outside records from [facility] admission from 04/07/2018 to 04/27/2018 were [...] ultimately discharged home with requested follow-up with [facility] neurology or local neurolo gist in approximately [...] defibrillator (ICD) Z95.810 Generator change 11/13 @ [facility] LUPE Chapman Pacemaker check in February 2018 showed no VT/VF episodes since October 2017. She does not have a routine follow-up scheduled. This will be arranged for her. 3. Nonrheumatic mitral (valve) insufficiency I34.0 MYRON HawkC Her echocardiogram in February 2018 showed moderately [...] Xa inhibitor. 6. Anemia, unspecified type D64.9 Aleida - LUPE Black Her most recent hemoglobin [...] prior to saving. Follow Up 6 Months (SPEECH COMMUNICATION INSTRUCTOR) 05/31/18 (GIUSEPPE) 06/01/18 0747 <Electronically signed by [...] ral regurgitation and tricuspid regurgitation. [facility] after being found unresponsive in her bathroom. During this hospitalization she was found to have an acute left axillary and left brachial vein DVT and was started on Eliquis. She presented to [facility] emergency department in March 2018 for altered mental status. Her CT scan prior to ER visit showed possible hygroma versus subacute resolving subdural hematoma. She was transferred to [facility] for further evaluation. These records are [...] 05/31/18 Pulse Rate 100 Intake Visit Reasons: [facility] to [facility] to [facility] to [place] Allergies amitriptyline Adverse Reaction (Severe, Verified 05/31/18 [...] elsewhere I43 EF is 15% Plan - Shahrzad Todd, NUNU-C Her echocardiogram in February 2018 showed moderately [...] rter-defibrillator (ICD) Z95.810 Generator change 11/[address] [facility] [address] Pacemaker check in February 2018 showed no [...] office if symptoms change and/or worsen. 4. Kars[address] ischemia I24.8 LUPE Hawk Her troponin [...] prior to saving. Follow Up 6 Months (SPEECH COMMUNICATION INSTRUCTOR) 05/31/18 (GIUSEPPE) Coding Level of Care Code [...] Visit Report Result: Comments: See Note; NOTES: [facility] [address] [place] [address]. [place] [address] OFFICE VISIT Date of Service: 06/05/18 1314 MR#: [id number] Acct: [id number] Name: TYLOR ASHRAF Dm Pulido Rep #: [id number] : 1965 From: Simeon Gresham MD Age/Sex: 53/F Location: [facility] Status: Signed Subjective - Date of Service Date of Service:: 06/05/18 - Chief Complaint Follow up DLBCL - His tory of Present Illness 53-year-old woman was diagnosed with non-Hodgkin's lymphoma, diffuse large B cell, stage IV of the uterine cervix with REGULATORY SCIENTIST/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 She had [...] stem cell transplant in February 2007 at [facility] with complete remission. She is on observation, [facility] [place]. - Past Medical/Social [...] Chronic Code Visit Office Visits / Consults: 54421 OV L3 Est 1325 <Electronically signed by Simeon Gresham MD> Date Simeon Gresham MD Cosigner Signature: Date (if applicable) CC: 26-May-2018 Venous Duplex Upper Extremity Result: Comments: See Note; NOTES: [facility] Cardiovascular Services [address] [place] [address] Venous Duplex US, Unilateral 05/25/18 0903 MR#: [id number] Acct: [id number] Name: IFEOMA SILVA Rep #: [id number] : 1965 53 From: Juanjo Russo MD [...] Dictated: 05/25/18 0903 Date Transcribed: 05/26/18 1635 Precision Inspector: Signed 06-Apr-2018 Chest 1 View (Portable) Result: Comments: See Note; NOTES: [facility] Imaging Services [address] [place] [address] Chest 1 View (Portable) MR#: [id number] Acct: [id number] Name: IFEOMA ASHRAF Rep #: [id number] : 1965 F 53 From: Levy Lucas DO PCP: Sangeetha Irvin DO Status: PRE ER Study: Chest 1 View (Portable) Date of Exam: 04/06/18 Exam# [id number] Ordering Dr: Dejuan Bacon MD STUDY: X-RAY [...] , CC: Sangeetha Irvin DO; Dejuan Bacon Precision Inspector: Signed 05-Apr-2018 Brain/Head without Contrast Result: Comments: See Note; NOTES: [facility] Imaging Services [address] [place] [address] Brain/Head without Contrast MR#: [id number] Acct: [id number] Name: IFEOMA ASHRAF Rep # : [id number] : 1965 F 53 From: Levy Lucas DO PCP: Sangeetha Irvin DO Status: REG CLI Study: Brain/Head without Contrast Date of Exam: 04/05/18 Exam# [id number] Ordering Dr: Shahrzad Bartlett MD STUDY : [...] 14:06 EDT Tel , Service support 1- [phone], N.B. : The above information has been verbally conveyed by Levy Lucas DO to connected , Covering Physician, on 04/05/2018 14:06:03 (ET). CC: Sangeetha Irvin DO; Shahrzad Bartlett MD Precision Inspector: Signed 05-Apr-2018 Brain/Head without Contrast Result: Comments: See Note; NOTES: [facility] Imaging Services [address] [place] [address] Brain/Head without Contrast MR#: [id number] Acct: [id number] Name: IFEOMA ASHRAF Rep # : [id number] : 1965 F 53 From: Levy Lucas DO PCP: Sangeetha Irvin DO Status: REG CLI Study: Brain/Head without Contrast Date of Exam: 04/05/18 Exam# [id number] Ordering Dr: Shahrzad Bartlett MD STUDY : [...] erbally conveyed by Levy Lucas DO to [facility] , [facility] Physician, on 04/05/2018 14:06:03 (ET). Electronically Signed: Leyv Lucas DO at 14:06 EDT Tel , Service support 1- [phone], N.B. : The above information has been verbally conveyed by Levy Lucas DO to connected , Covering Physician, on 04/05/2018 14:06:03 (ET). CC: Sangeetha Irvin DO; Shahrzad Bartlett MD Precision Inspector: Signed 31-Mar-2018 Cardiology Visit Report Result: Comments: See Note; NOTES: [facility] [address] [place] [address] OFFICE VISIT Date of Service: 03/31/18 MR#: [id number] Acct: [id number] Name: Ifeoma Ashraf Rep #: [id number] : 1965 Provider: Boone Ch MD Age/Sex: 53/F Location[facility] Status: Signed HPI HPI Chief [...] who presented to the emergency department at [facility] on 03/08/2018 aft er being found [...] She was eventually transferred to [facility]. 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 I would like to obtain a industrial chemist ry profile to be able to appropriately adjust any diuretics. At this juncture it may be prudent to add Lasix 40 mg a day to her current regimen. 2. Presence of implantable cardioverter-defibrillator (I CD) Z95.810 Generator change 11/13 @ [facility] Dr. Ahmadi Plan She does have an [...] months. 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 (computer applications developer) Coding Level of Care Code Off vis,est,level [...] <Electronically signed by Boone Vega> Date Boone Milton Signature: Date (if applicable) CC: Sangeetha Irvin DO 22-Nov-2017 TXT - Blood Flow Screening Result: Comments: See Note; NOTES: [facility] Cardiovascular Services [address] [place] [address] 11/22/17 0803 MR#: [id number] Acct: [id number] Name: IFEOMA ASHRAF Rep #: [id number] [...] Dictated: 11/22/17 0803 Date Transcribed: 11/22/17 1518 Precision Inspector: Signed 18-Nov-2017 Office Visit Report Result: Comments: See Note; NOTES: [facility] [address] [place] [address] OFFICE VISIT Date of Service: 11/17/17 MR#: [id number] Acct: [id number] Patient: IFEOMA ASHRAF Rep #: [id number] : 1965 Provider: Danica Pickering Age/Sex: 52/F [...] n office Interview Reason: scheduled follow up Helix Coil Winder: [employer] [place] Name: Lan Mckeon VR Model: [id number] Serial #: [id number] Implant Date: 11/10/17 Year(s): 0 Implant Physician: [...] and No drainage Bibiana ds Lead #1 Helix Coil Winder Lead 1: [employer] [place] Model Lead 1: 7121Q/58 Serial# Lead 1: [id number] Date Implanted Lead 1: 10/10/09 Position Lead [...] Operative Report Result: Comments: See Note; NOTES: [facility] Medical Records Department [address] [place] [address] Operative Report 11/10/17 1148 MR#: [id number] Acct: [id number] Name: SALOME ASHRAF Rep #: [id number] : 1965 52 From: Lior Ahmadi MD PCP: Sangeetha Irvin DO Status: REG [facility] Location: [facility] Operative Report Date of Procedure: 11/10/17 Preoperative diagnosis is device at end of life for normal battery depletion. Postoperative diagnosis same as above. After informed consent and IV antibiotics the patient was brought to the [facility] and the ski n over [...] chart documents provided by the device company freight representative procedure summary. 11/10/17 1150 <Electronically signed by Lior Ahmadi MD > Date Lior Ahmadi MD CC: Sangeetha Irvin DO; Lior Ahmadi MD Signed 03-Nov-2017 Office Visit Report Result: Comments: See Note; NOTES: [facility] Services [address] [facility] [place] [address] OFFICE VISIT Date of Service: 11/03/17 MR#: [id number] Acct: [id number] Patient: IFEOMA ASHRAF Rep #: [id number] : 1965 Provider: Danica Pickering Age/Sex: 52/F Location: [facility] Status: Signed Comments Summary Comments: [...] in office Interview Reason: routine follow up Helix Coil Winder: [employer] [place] Name: Current VR Model: 1211-36Q ICD Serial #: [id number] Implant Date: 10/10/09 Year(s): 8 Implant Physician: [...] Model Lead 1: 7121Q/58 Serial# Lead 1: [id number] Date Implanted Lead 1: 10/10/09 Position Lead [...] automatic cardioverter/defibrillator (AIC D) Z95.810 10/06/2009 @ [facility] 2. Cardiomyopathy in other diseases classified elsewhere I43 11/03/17 1251 <Electronically signed by Danica Pickering > Date Danica Pickering 11/03/17 1648<Electronically signed by Boone Ch MD> Junior Signature: Date (if applicable) Boone Ch MD CC: 03-Nov-2017 Cardiology Visit Report Result: Comments: See Note; NOTES: [facility] [place] [address] OFFICE VISIT Date of Service: 11/03/17 MR#: [id number] Acct: [id number] Name: IFEOMA ASHRAF Rep #: [id number] : 1965 Provider: Boone Ch MD Age/Sex: 52/F Location: [facility] Status: Signed HPI HPI Details: IFEOMA ASHRAF, [...] [Coreg (Beta Stephanie)] 3.125 mg PO BID 06/29/15 [History Confirmed 10/27/17] Clonazepam [Klonopin] 1 mg [...] 10 mg tablet 10 mg PO .COMPLEX 02/08/18 [History Confirm ed 10/27/17] Ejection fraction %: 25 to 29 (25% per echo 03/11/2015) [facility] Medical History Type 2 diabetes [...] of automatic cardioverter/defibrillator (AICD) Z95.810 10/06/2009 @ [facility] Plan She is status post [...] was also being followed up at the [facility]. She is also on spironolactone [...] and Lateral Result: Comments: See Note; NOTES: [facility] Imaging Services [address] [place] [address] Chest PA and Lateral MR#: [id number] Acct: [id number] Name: IFEOMA ASHRAF Rep #: [id number] : 1965 F 52 From: Dimitris Valderrama DO PCP: Sangeetha Irvin DO Status: PRE [facility] Study: Chest PA and Lateral Date of Exam: 11/03/17 Exam# [id number] Ordering Dr: Boone Ch MD STUDY: X-RAY [...] Dimitris Valderrama DO at 18:21 EST Tel [phone], Se rvice support , CC: Boone Ch MD; Sangeetha Irvin DO Precision Inspector: Signed 14-Oct-2017 Office Visit Report Result: Comments: See Note; NOTES: [address] [place] [address] OFFICE VISIT Date of Service: 10/12/17 MR#: [id number] Acct: [id number] Patient: IFEOMA ASHRAF Rep #: [id number] : 1965 Provider: Danica Pickering Age/Sex: 52/F Location: [facility] Status: Signed Comments Summary Comments: Single Chamber ICD Evaluation: Interrogation shows No VT/VF episodes since . No Alerts noted. Left pectoral pocket/incision w/o s/s of infection or erosion. Pt offers no cardiac complaints. Presenting rhythm shows Sinus Tachycardia @ 105 bpm. Left pectoral pocket/incision w/o s/s of infection or erosion. LOADING DOCK HELPER=0%. Battery longevity approx 2.9 mos. At device check in June device showed longevity of 14 mos. D/T longevity decreasing quickly pt scheduled for ICD generator el gilliam with Dr. Ahmadi on 11/10/17 @ [facility]. Lead impedances, sensing and pace/sense threshold remain stable. No parameter changes made. Counters cleared. Pt scheduled for o.v and teaching on 11/03/17 and ICD g enerator change on 11/10/17. Device Device Date Interviewed: 10/12/17 Follow- up Location: in office Interview Reason: routine follow up Helix Coil Winder: [employer] 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 Model Lead 1: 7121Q/58 Serial# Lead 1: [id number] Date Implanted Lead 1: 10/10/09 Position Lead [...] IV Contrast Result: Comments: See Note; NOTES: [facility] Imaging Services [address] [place] [address] Abdomen WITH IV Contrast MR#: [id number] Acct: [id number] Name: IFEOMA ASHRAF Rep #: [id number] : 1965 F 52 From: Carl Vincent MD PCP: Sangeetha Irvin DO Status: REG CLI Study: Abdomen WITH IV Contrast Date of Exam: 06/15/17 Exam# [id number] Ordering Dr: Analisa Conway MD STUDY: CT [...] CC: Analisa Conway MD; Sangeetha Irvin DO Precision Inspector: Signed 15-Jun-2017 Spine Cervical without Contras Result: Comments: See Note; NOTES: [facility] Imaging Services [address] [place] [address] Spine Cervical without Contras MR#: [id number] Acct: [id number] Name: IFEOMA ASHRAF p #: [id number] : 1965 F 52 From: Zev Mandujano MD PCP: Sangeetha Irvin DO Status: REG CLI Study: Spine Cervical without Contras Date of Exam: 06/15/17 Exam# [id number] Ordering Dr: Analisa Conway MD STUDY: CT [...] CC: Analisa Conway MD; Sangeetha Irvin DO Precision Inspector: Signed 10-Feb-2017 Spine Lumbar without Contrast Result: Comments: See Note; NOTES: [facility] Imaging Services [address] [place] [address] Verdana 4d Spine Lumbar without Contrast MR#: [id number] Acct: [id number] Name: MARISEL ASHRAF Rep #: [id number] : 1965 F 51 From: Brian Gill MD PCP: Sangeetha Irvin DO Status: REG CLI Study: Spine Lumbar without Contrast Date of Exam: 02/10/17 Exam# [id number] Ordering Dr: Analisa Carr i, MD STUDY: [...] CC: Analisa Conway MD; Sangeetha Irvin DO Precision Inspector: Signed 20-Jan-2017 Liver Result: Comments: See Note; NOTES: [facility] Imaging Services [address] [place] [address] Verdana 4d Liver MR#: [id number] Acct: [id number] Name: IFEOMA ASHRAF Rep #: [id number] : 1965 F 51 From: Vincent Bui DO PCP: Sangeetha Irvin DO Status: REG CLI Study: Liver Date of Exam: 01/20/17 Exam# [id number] Ordering Dr: Sangeetha Irvin DO STUDY: ABDOMINAL [...] Vincent Bui DO at 23:43 EDT Tel [phone], Service support , CC: Sangeetha Irvin DO Precision Inspector: Signed 20-Jan-2017 Thyroid Result: Comments: See Note; NOTES: [facility] Imaging Services [address] [place] [address] Verdana 4d Thyroid MR#: [id number] Acct: [id number] Name: IFEOMA ASHRAF Rep #: [id number] : 1965 F 51 From: Jin Rolon PCP: Sangeetha Irvin DO Status: REG CLI Study: Thyroid Date of Exam: 01/20/17 Exam# [id number] Ordering Dr: Sangeetha Irvin DO STUDY: THYROID [...] Service support , CC: Sangeetha Irvin DO Precision Inspector: Signed 17-Nov-2016 Dexa Bone Density Study (HP) Result: Comments: See Note; NOTES: [facility] Imaging Services [address] [place] [address] Verdana 4d Dexa Bone Density Study (HP) MR#: [id number] Acct: [id number] Name: SEAN HARPAL Pulido Rep #: [id number] : 1965 F 51 From: Prashant Delgadillo MD PCP: Sangeetha Irvin DO Status: REG CLI Study: Dexa Bone Density Study (HP) Date of Exam: 11/17/16 Exam# [id number] Ordering Dr: Sangeetha Irvin DO STUDY: DUAL [...] Prashant Delgadillo MD at 10:52 EST Tel [phone], Service support [phone], CC: Sangeetha Irvin DO Precision Inspector: Signed 17-Nov-2016 SCREENING MAMM (CAD), BILAT Result: Comments: See Note; NOTES: [facility] Imaging Services [address] [place] [address] Verdana 4d SCREENING MAMM (CAD), BILAT MR#: [id number] Acct: [id number] Name: SALOME ASHRAF Rep #: [id number] : 1965 F 51 From: Prashant Delgadillo MD PCP: Sangeetha Irvin DO Status: REG CLI Study: SCREENING MAMM (CAD), KANU Date of Exam: 11/17/16 Exam# [id number] Ordering Dr: Gary Irvin DO MAMMOGRAPHY - [...] biopsy of a clinically suspiciou s abnormality. [id number] Electronically Signed: Prashant Delgadillo MD at 12:55 EST Tel [phone], Service support [phone], CC: Sangeetha Irvin DO Precision Inspector: Signed 17-Nov-2016 SCREENING MAMM (CAD), BILAT Result: Comments: See Note; NOTES: [facility] [facility] Imaging Services [address] [place] [address] Verdana 4d SCREENING MAMM (CAD), BILAT MR#: [id number] Acct: [id number] Name: SALOME ASHRAF Rep #: [id number] : 1965 F 51 From: Prashant Delgadillo MD PCP: Sangeetha Irvin DO Status: REG CLI Study: SCREENING MAMM (CAD), BILAT Date of Exam: 11/17/16 Exam# [id number] Ordering Dr: Gary Irvin DO ADDENDUM by [...] delay biopsy of a clinically suspicious abnormality. [id number] Electronically Signed: Prashant Delgadillo MD at 13:07 EST Tel [phone], Service support [phone], 11/17/16 1315 Date cc: Sangeetha Irvin DO [...] delay biopsy of a clinically suspicious abnormality. [id number] Electronically Signed: Prashant Delgadillo MD at 12:55 EST Tel [phone], Ser vice support [phone], CC: Sangeetha Irvin DO Precision Inspector: Signed 19-Dec-2015 Liver Result: Comments: See Note; NOTES: [facility] Imaging Services [address] [place] [address] Verdana 4d Liver MR#: [id number] Acct: [id number] Name: IFEOMA ASHRAF Rep #: [id number] : 1965 F 50 From: Ziggy Santos MD PCP: Sangeetha Irvin DO Status: REG CLI Study: Liver Date of Exam: 12/19/15 Exam# [id number] Ordering Dr: Sangeetha Irvin DO STUDY: ABDOMINAL [...] Service support , CC: Sangeetha Irvin DO Precision Inspector: Signed 19-Dec-2015 Thyroid Result: Comments: See Note; NOTES: [facility] Imaging Services [address] [place] [address] Verdana 4d Thyroid MR#: [id number] Acct: [id number] Name: IFEOMA ASHRAF Lois ep #: [id number] : 1965 F 50 From: Ziggy Santos MD PCP: Sangeetha Irvin DO Status: REG CLI Study: Thyroid Date of Exam: 12/19/15 Exam# [id number] Ordering Dr: Sangeetha Irvin DO STUDY: THYROID [...] at 10:56 EDT Tel , Service support [phone], CC: Sangeetha Irvin DO Precision Inspector: Signed 14-Aug-2015 Bilat Scrn Digital AND CAD Result: Comments: See Note; NOTES: [facility] Imaging Services [address] [place] [address] Verdana 4d Bilat Scrn Digital AND CAD MR#: [id number] Acct: [id number] Name: IFEOMA ASHRAF Rep #: [id number] : 1965 F 50 From: Prashant Delgadillo MD PCP: Sangeetha Irvin DO Status: REG CLI Study: Bilat Scrn Digital AND CAD Date of Exam: 08/14/15 Exam# [id number] Order ing Dr: Sangeetha Irvin DO MAMMOGRAPHY [...] Prashant Delgadillo MD at 10:49 EST Tel [phone], Service support [phone], CC: Sangeetha Irvin DO Precision Inspector: Signed 10-Mar-2015 Emergency Department Summary Result: Comments: See Note; NOTES: [facility] Medical Records Department [address] [place] [address] Emergency Department Summary MR#: [id number] Acct: [id number] Name: MARIOMARILU CRAFTIFEOMA Rep #: [id number] : 1965 49 From: Mayito Roldan DO [...] way. Mayito Roldan DO T: NTS JOB: [id number] 03/10/15 2329 <Electronically signed by Mayito Roldan DO> Date Mayito Roldan DO CC: Sangeetha Irvin DO Date Dictated: 02/28/15824 Date Transcribed: 02/28/15824 Precision Inspector: Signed 02-Mar-2015 Emergency Department Summary Result: Comments: See Note; NOTES: [facility] Medical Records Department [address] [place] [address] Emergency Department Summary MR#: [id number] Acct: [id number] Name: IFEOMA RASMUSSEN Rep #: [id number] : 1965 49 From: Alejandro Lopez DO PCP: Sangeetha Irvin DO Status: [facility] ER DATE OF SERVICE: 02/28/2015 CHIEF [...] The patient has plans to go to [facility] on General. I will give her local surgeon's name if she wants to speak with them or she can certainly also speak with Dr. Irvin. CLINICAL IMPRESSION: Biliary colic. Alejandro Lopez DO T: ROCK JOB: [id number] 03/02/1543 <Electronically signed by Alejandro Lopez DO> Date Alejandro Lopez DO CC: Sangeetha Irvin DO Date Dictated: 718 Date Transcribed: 02/28/15718 Precision Inspector: Signed 28-Feb-2015 Discharge Instruction Result: Comments: See Note; NOTES: [facility] Medical Records Department [address] [place] [address] Discharge Instruction 02/28/15 0639 MR#: [id number] Acct: [id number] Name: IFEOMA ASHRAF Rep #: [id number] : 1965 49 From: Alejandro Lopez DO [...] problems, contact your doctor. Call [facility] ([phone]) or report to the closest Em ergency Room. Call 911 if necessary. 02/28/15 0640 <Electronically signed by Alejandro Lopez DO> Date Alejandro Lopez DO Cosign er Signature (If Indicated): Date CC: Sangeetha Irvin DO 28-Feb-2015 Gallbladder Result: Comments: See Note; NOTES: [facility] Imaging Services [address] [place] [address] Ultrasound Report MR#: [id number] Acct: [id number] Name: IFEOMA ASHRAF Rep #: [id number] : 1965 F 49 From: Prashant Delgadillo MD PCP: Sangeetha Irvin DO Status: REG ER Study: Gallbladder Date of Exam: 02/28/15 Exam# [id number] Ordering Dr: Alejandro Lopez DO STUDY: ABDOM [...] Prashant Delgadillo MD at 8:15 EDT Tel [phone], Service support [phone], CC: Alejandro Lopez DO; Sangeetha Irvin DO Precision Inspector: Signed 11-Feb-2015 Spine Cervical without Contras Result: Comments: See Note; NOTES: [facility] Imaging Services [address] [place] [address] CAT Scan Report MR#: [id number] Acct: [id number] Name: IFEOMA ASHRAF Rep #: [id number] : 1965 F 49 From: Prashant Delgadillo MD PCP: Sangeetha Irvin DO Status: REG CLI Study: Spine Cervical without Contras Date of Exam: 02/11/15 Exam# [id number] Ordering Dr: Analisa Conway MD STUDY: CT [...] transaxial imaging was performed without contrast mat ial. Sagittal and coronal images were reconstructed. COMPARISON: [...] Prashant Delgadillo MD at 9:49 EDT Tel [phone], Service support [phone], CC: Analisa Conway MD; Sangeetha Irvin DO Precision Inspector: Signed 18-Jul-2014 Bilat Scrn Digital & CAD Result: Comments: See Note; NOTES: [facility] Imaging Services [address] [facility] [place] [address] Breast Imaging Report MR#: [id number] Acct: [id number] Name: IFEOMA ASHRAF Rep # : [id number] : 1965 F 49 From: Prashant Delgadillo MD PCP: Sangeetha Irvin DO Status: REG CLI Exam# [id number] Ordering Dr: Sangeetha Irvin DO MAMMOGRAPHY - [...] Prashant Delgadillo MD at 8:36 EDT Tel [phone], Servi ce support [phone], CC: Sangeetha Irvin DO Precision Inspector: Signed 18-Jul-2014 Liver Result: Comments: See Note; NOTES: [facility] Imaging Services [address] [place] [address] Ultrasound Report MR#: [id number] Acct: [id number] Name: IFEOMA ASHRAF Rep #: [id number] : 1965 F 49 From: Prashant Delgadillo MD PCP: Sangeetha Irvin DO Status: REG CLI Study: Liver Date of Exam: 07/18/14 Exam# [id number] Ordering Dr: Sangeetha Irvin DO STUDY: ABDOMINAL [...] Prashant Delgadillo MD at 9:34 EDT Tel [phone], Service support [phone], CC: Sangeetha Irvin DO Precision Inspector: Signed 18-Jul-2014 Thyroid Result: Comments: See Note; NOTES: [facility] Imaging Services [facility] [place] [address] Ultrasound Report MR#: [id number] Acct: [id number] Name: IFEOMA ASHRAF Rep #: [id number] : 1965 F 49 From: Prashant Delgadillo MD PCP: Sangeetha Irvin DO Status: REG CLI Study: Thyroid Date of Exam: 07/18/14 Exam# [id number] Ordering Dr: Sangeetha rIvin DO STUDY: THYROID ULTR ASOUND REASON FOR [...] Delgadillo MD at 8:41 EDT T el [phone], Service support [phone], CC: Sangeetha Irvin DO Precision Inspector: Signed 05-Feb-2014 Brain/Head W/WO Contrast Result: Comments: See Note; NOTES: [facility] Imaging Services [address] [place] [address] CAT Scan Report MR#: [id number] Acct: [id number] Name: IFEOMA ASHRAF Rep #: [id number] : 1965 F 48 From: Prashant Delgadillo MD PCP: Sangeetha Irvin DO Status: REG CLI Study: Brain/Head W/WO Contrast Date of Exam: 02/05/14 Exam# [id number] Ordering Dr: Sangeetha Irvin DO STUD Y: [...] Prashant Delgadillo MD at 9:19 EDT Tel [phone], Service support [phone], CC: Sangeetha Irvin DO Precision Inspector: Signed Immunization Name Dates Details Influenza (3 years and up) on: 10-Jul-2008 Comments: injection given in left deltoid, pt tolerated welllot # [id number] Influenza (3 years and up) on: 09-Jul-2009 Comments: Lot #[id number]-right deltoidDose0.5mlgiven by Juventino Nye LPN Family History [...] smoker Vital Signs Date Test Result Details :04 Temperature 97.9 f Comments: Method: Temporal Pulse 106 /min Comments: Pattern: Regular Respiration Rate 16 /min Comments: Pattern: Unlabored O2 SAT 97 % Comments: Room air BP Systolic 110 mm[Hg] Comments: Patient Position: Sitting; Cuff Location: Left Arm; Cuff Size: Standard BP Diastolic 70 mm[Hg] Comments: Patient Position: Sitting; Cuff Location: Left Arm; Cuff Size: Standard Weight 191 lb Height 65 in Body Mass Index Calculated 31.78 kg/m2 Body Surface Area Calculated 1.94 m2 :41 Temperature 97.1 f Comments: Method: Temporal [...] kg/m2 Body Surface Area Calculated 2.21 m2 4-Ond-124747:11 Temperature 98.4 f Comments: Method: Oral Pulse [...] Arm; Cuff Size: Standard Weight 249.125 lb 42-Fjt-623852:19 Temperature 97.2 f Comments: Method: Temporal Pulse [...] Value Details :59 BNP,B-Type NATRIURETIC PEPTIDE Comments: [facility] [address] [place], [address] B-TYPE JACKIE PEP 819.3 pg/mL (Abnormal) Range: 0-100 :59 CBC W/Diff, Automated Comments: [facility] [address] [place], [address] Absolute Lymph 1.08 {X10_3/ul} (Normal) [...] 4.2-5.4 WBC 7.5 K/mm3 (Normal) Range: 4.4-11.0 01-Caz-824777:59 Comprehensive Metabolic Profil Comments: 'TROP' Serial specimen #1, #2, #3, or #4: 1[facility] [address] [place], [place], [address] GAP 8 (Normal) Range: 5-15 CO2 29.0 [...] A.D.A. criteria.Please note revised GLUCOSE reference range zkamwytat22/02/2018. 69-Ewx-916598:59 CPK Total, Creatine Kinase Comments: 'TROP' Serial specimen #1, #2, #3, or #4: [address] [place] [address] [place], [place], [address] CPK TOTAL 30 U/L (Normal) Range: 26-192 97-Vfn-964826:59 D-Dimer Quantitative (DVT/PE) Comments: [facility] [address] [place], [place], [address] D-DIMER QUANT 1.44 {FEU/ug/m} (Abnormal) Range: 0.27-0.49 Comments: CRITICAL VALUE VERIFIED. CALLED TO XTFVUJPI53/10/18 1440 Francois Quinn.RESULTS READ BACK BY SAME .D-Dimer ELEVATED (>0.49): Additional studies and clinicalassessments are indicated to conclude di agnosis of:Deep Vein Thrombosis (DVT) or Pulmonary Embolism (PE) 85-Iqh-469375:59 Troponin-I Comments: 'TROP' Serial specimen #1, #2, #3, or #4: [address] [place] [address] [place], [address] TROPONIN-I 0.030 ng/mL (Normal) Comments: TROPONIN-I EXPECTED VALUES <0.045 Negative 0.045 - 0.590 Consistent with Cardiac Damage > OR = 0.600 Critical Value Not every elevated troponin is indicative of NV. T hesevalues should be used with clinical judgement in examiningthe patient's clinical picture for diagnosis. To establisha diagnosis of NV versus myocardial injury, there must be ademonstrated rise and/ or fall in the troponin values, inaddition to ischemic symptoms, EKG changes, new regionalwall motion abnormality, and/or angiographical evidence. PLEASE NOTE: REFERENCE RANGES EDITED 02/06/1829-Aug-20187-Fgs-354191:44 ANCA Comments: Is Patient Fasting? [facility] (refer to report for specific site)refer to report for address and phone number Atypical pANCA <1:20 {titer} (Normal) Comments: The atypical pANCA pattern has been observed in asignificant percentage of patients with ulcerative colitis,primary sclerosing cholangitis and autoimmune hepatitis.Performed at: [facility] [place], [place] [id number] Director: Omar Hood PhD, Phone: [phone] PERINUCLEAR Ab <1:20 {titer} (Normal) Comments: The presence of positive fluorescence exhibiting P-ANCA orC-ANCA patterns alone is not specific for the diagnosis ofWegener's Granulomatosis (WG) or microscopic polyangiitis.Decisions about treatment sh ould not be based solely onANCA IFA results. The International ANCA Group Consensusrecommends follow up testing of positive sera with both WV-3 and MPO- ANCA enzyme immunoassays. As many as 5% serumsamp les are positive only by EIA. Ref. AM J Clin Egjbhg6933;111:507-513. CYTOPLASMIC Ab <1:20 {titer} (Normal) 9-Lyf-248413:44 ANTINUCLEAR ANTIBODIES DIRECT Comments: [facility] (refer to report for specific site)refer to report for address and phone number LASHA-DIRECT Negative (Normal) Comments: Performed at: [facility] [address] [place], [place] [id number] Director: Omar Hood PhD, Phone: [phone] 6-Khu-227567:44 CPK Total, Creatine Kinase Comments: [facility] [address] [place], [place], [address] CPK TOTAL 33 U/L (Normal) Range: 26-192 8-Fvp-901789:44 Hemoglobin A1c Comments: [facility] [address] [place], [place], [address] HGB A1C 10.6 % (Abnormal) Range: 4.2-6.3 0-Coo-571620:44 PRANEETH AND PE, Random UR Comments: Is Patient Fasting? [facility] (refer to report for specific site)refer to report for address and phone number NOTE Comment (Normal) Comments: Protein electrophoresis scan will follow via computer,mail, or career development facilitator delivery. PRANEETH RESULT,U Comment (Normal) Comments: No monoclonality detected. M-SPIKE,UR% Not Observed % (Normal) GAMMA GLOB,U 5.5 % (Normal) BETA GLOB,U 14.2 % (Normal) OYOIU-5-QWQK,U 10.8 % (Normal) TTYKS-9-ZZAH,U 7.6 % (Normal) ALBUMIN,U 62.0 % (Normal) PROTEIN,UR 27.8 mg/dL (Normal) 5-Qlr-806118:44 PRANEETH + Protein Elect, Serum Comments: Is Patient Fasting? [facility] (refer to report for specific site)refer to report for address and phone number NOTE: Comment (Normal) Comments: Protein electrophoresis scan will follow via computer,mail, or career development facilitator delivery. PRANEETH RESULT,S Comment (Normal) Comments: No monoclonality detected. A/G RATIO 1.2 (Normal) Range: 0.7-1.7 GLOBULIN, TOTAL 2.9 g/dL (Normal) Range: 2.2-3.9 M-SPIKE g/dL (Normal) Comments: Not Observed GAMMA GLOBULIN 0.6 g/dL (Normal) Range: 0.4-1.8 BETA GLOBULIN 1.1 g/dL (Normal) Range: 0.7-1.3 QWVHE-2-WUJZ 0.9 g/dL (Normal) Range: 0.4-1.0 SPMMG-1-HNGZ 0.3 g/dL (Normal) Range: 0.0-0.4 ALBUMIN 3.4 g/dL (Normal) Range: 2.9-4.4 IMMUNOGL M 103 mg/dL (Normal) Range: 26-217 IMMUNO A 69 mg/dL (Abnormal) Range: 87-352 IMMUNO G 538 mg/dL (Abnormal) Range: 700-1600 PROTEIN,TOTAL 6.3 g/dL (Normal) Range: 6.0-8.5 9-Zke-472554:44 Rheumatoid Factor Comments: [facility] [address] [place], [address] RHEUMATOID FAC < 10.0 {IU/mL} (Normal) 0-Ueh-152161:44 Sjogren's Antibodies A/B Comments: [facility] (refer to report for specific site)refer to report for address and phone number Anti-SS-B < 0.2 {AI} (Normal) Range: 0.0-0.9 Anti-SS-A < 0.2 {AI} (Normal) Range: 0.0-0.9 5-Fwh-488545:44 Thyroid Stim Hormone (TSH) Comments: [facility] [address] [place], [address] TSH 2.71 {uIU/mL} (Normal) Range: 0.358-3.74 5-Qbu-487574:44 Vitamin B12 1303 pg/mL (Abnormal) Comments: [facility] [address] [place], [address] Range: 211-911 1-Gxp-734600:44 Vitamin D,25 Hydroxy Comments: [facility] [address] [place], [address] Vitamin D 25-OH 62.4 ng/mL (Normal) Range: 29.95-100.01 Comments: Vitamin D 25(OH) Status Range Deficiency <20 ng/mL (50nmol/L) Insuffciency 20 - 30 ng/mL (50 - 75 nmol/L) Sufficiency 30 - 100 ng/mL (75 - 250 nmol/L) Toxicity >100 ng/mL (>250 nmol/L) 8-Gvr-416905:06 Basic Metabolic Profile (BMP) Comments: PLEASE FAX TO DR. CANTU [phone] [address] [place], [place], [address] GAP 12 (Normal) Range: 5-15 CO2 26.0 [...] A.D.A. criteria.Please note revised GLUCOSE reference range cfitxxcip00/02/2018. 57-Wld-42212:22 CBC W/Diff, Automated Comments: BMP TO DULCE TODD WH.CBCD, TSH, B12 TO DR. SANGEETHA IRVIN.[facility] [address] [place], [place], [address] Absolute Lymph 1.16 {X10_3/ul} (Normal) Range: 0.83-4.51 [...] pg/mL (Normal) Comments: BMP TO NUNU.SHAHRZAD TODD [facility].CBCD, TSH, B12 TO DR[address] SANGEETHA IRVIN.[facility] [address] [facility] [place], [place], [address] Range: 211-911 35-Xly-55708:20 Basic Metabolic Profile (BMP) Comments: BMP TO NUNU.SHAHRZAD TODD [facility].CBCD, TSH, B12 TO [address] SANGEETHA IRVIN.[facility] [address] [facility] [place], [place], [address] GAP 9 (Normal) Range: 5-15 CO2 27.0 [...] criteria.Please note revised GLUCOSE reference range /02/2018. 06-Xti-70035:20 Thyroid Stim Hormone (TSH) Comments: BMP TO DULCE TIMMONS.CBCD, TSH, B12 TO DR. SANGEETHA IRVIN.[facility] [address] [place], [place], [address] TSH 4.09 {uIU/mL} (Abnormal) Range: 0.358-3.74 00-Zmf-775285:23 Basic Metabolic Profile (BMP) Comments: [facility] [address] [facility] [address] [place], [place], [address] GAP 7 (Normal) Range: 5-15 CO2 30.0 [...] A.D.A. criteria.Please note revised GLUCOSE reference range gttteogxg79/02/2018. 99-Qyl-290801:23 BNP,B-Type NATRIURETIC PEPTIDE Comments: [facility] [address] [place], [place], [address] B-TYPE JACKIE PEP 892.7 pg/mL (Abnormal) Range: 0-100 21-Hgv-998195:23 CBC W/Diff, Automated Comments: [facility] [address] [place], [place], [address] Absolute Lymph 1.23 {X10_3/ul} (Normal) Range: 0.83-4.51 [...] 4.2-5.4 WBC 7.2 K/mm3 (Normal) Range: 4.4-11.0 :41 CBC W/Diff, Automated Comments: Reason for Laboratory Test .[facility] [address] [place], [address] Absolute Lymph 0.85 {X10_3/ul} (Normal) [...] 4.2-5.4 WBC 5.7 K/mm3 (Normal) Range: 4.4-11.0 50-Bky-414587:41 Comprehensive Metabolic Profil Comments: Reason for Laboratory Test .Serial Specimen #1, #2 or #3? [facility] [address] [place], [address] GAP 8 (Normal) Range: 5-15 CO2 28.0 [...] A.D.A. criteria.Please note revised GLUCOSE reference range pupsvnkhf87/02/2018. 08-Eaa-332729:41 LDH 224 U/L (Normal) Comments: Reason for Laboratory Test .Serial Specimen #1, #2 or #3? [facility] [address] [place], [address] Range: 84-246 2-Ayo-825597:41 URINE GENESIS CULTURE-IDENTIFICATN Comments: add to urine in lab; PATIENT NOT FASTINGPERFORMED BY: [facility] [address] [facility] [id number] Information: SRC:JUAN ([id number]) Result 1 ENTEAE (Abnormal) Comments: Enterobacter aerogenes1,000 [...] 2253 10.0 ng/mL (Abnormal) Range: 0.0-8.3 Comments: [employer] ECLIA methodologyPerformed at: [facility] [address] [id number] Director: Omar Hood PhD, Phone: [phone] :46 CBC W/Diff, Automated Comments: [facility] [address] [place], [address] Absolute Lymph 0.95 {X10_3/ul} (Normal) [...] ADD T3F T4F TO BLOOD FROM 05-25-[address] [place], [place], [address] GAP 9 (Normal) Range: 5-15 CO2 28.0 [...] A.D.A. criteria.Please note revised GLUCOSE reference range ikfrmbegm31/02/2018. :46 Digoxin Level Comments: [facility] [address] [place], [place], [address] DIG 0.71 ng/mL (Abnormal) Range: 0.80-2.00 :46 Free T3 Comments: PLEASE ADD T3F T4F TO BLOOD FROM 05-25-[address] [place], [place], [address] FREE T3 3.2 pg/mL (Normal) Range: 2.18-3.98 :46 Hemoglobin A1c Comments: [facility] [address] [place], [place], [address] HGB A1C 5.4 % (Normal) Range: 4.2-6.3 :46 Lipid Profile Comments: PLEASE ADD T3F T4F TO BLOOD FROM 05-25-[address] [place], [place], [address] VLDL 22 mg/dL (Normal) Range: 5-40 LDL [...] High Risk :46 Microalb:Creat Ratio,Random UR Comments: [facility] [address] [place], [address] MALB:CREAT 7.8 {mg/g_CRE} (Normal) MICROALBUMIN,UR 10.9 mg/L (Normal) UR CREAT 139.00 mg/dL (Normal) :46 T4 Free Direct Comments: PLEASE ADD T3F T4F TO BLOOD FROM 05-25-[address] [place], [address] T4 FREE DIRECT 1.11 ng/dL (Normal) Range: 0.76-1.46 :46 Thyroid Stim Hormone (TSH) Comments: PLEASE ADD T3F T4F TO BLOOD FROM 05-25-[address] [place] [place], [address] TSH 0.31 {uIU/mL} (Abnormal) Range: 0.358-3.74 :46 Urinalysis, Complete Comments: How was Urine Obtained? CLEAN [facility] [address] [place], [address] MUCUS, URINE 0 SEEN {/hpf} (Normal) [...] :46 Vitamin B12 368 pg/mL (Normal) Comments: [facility] [address] [place], [address] Range: 211-911 :46 Vitamin D,25 Hydroxy Comments: [facility] [address] [place], [address] Vitamin D 25-OH 64.5 ng/mL (Normal) Range: 29.95-100.01 Comments: Vitamin D 25(OH) Status Range Deficiency <20 ng/mL (50nmol/L) Insuffciency 20 - 30 ng/mL (50 - 75 nmol/L) Sufficiency 30 - 100 ng/mL (75 - 250 nmol/L) Toxicity >100 ng/mL (>250 nmol/L) 98-Ikg-563131:52 Urinalysis, Complete Comments: Order Date: 04/06/18Has pt arrived? YHow was Urine Obtained? [facility] [address] [place] [place], [address] HYALINE CAST 5-10 SEEN {/lpf} (Normal) Range: [...] (Normal) CLARITY Cloudy (Normal) COLOR Yellow (Normal) 32-Fkw-946079:30 CBC W/Diff, Automated Comments: [facility] [address] [place], [place], [address] OVALOCYTE RARE (Normal) MACROCYTE 1+ (Normal) ANISO [...] 4.2-5.4 WBC 9.1 K/mm3 (Normal) Range: 4.4-11.0 24-Uzn-962270:30 Comprehensive Metabolic Profil Comments: [facility] [address] [place], [address] GAP 12 (Normal) Range: 5-15 [...] Please note revised GLUCOSE reference range /02/2018. 42-Tob-899334:30 Lactic Acid Comments: Yes/No query for Sepsis Lactate Rule [facility] [address] [place], [address] LACTIC ACID 6.7 mmol/L (Abnormal) Range: 0.4-2.0 Comments: Critical Result(s) Called Lisa IRVERA at: 20:23:2207 by: BRITTANY TORRES 57-Vsv-914331:30 Partial Thromboplast Time Comments: [facility] [address], [address] PTT 41.3 s (Abnormal) Range: 24.1-36.2 36-Hql-279914:30 Prothrombin Time w/INR Comments: [place] [address] [place], [address] INR 2.3 (Normal) PROTIME 25.6 s (Abnormal) Range: 11.7-14.9 37-Kzp-600368:30 Troponin-I Comments: [place] [address] [place], [address] TROPONIN-I 0.046 ng/mL (Abnormal) Comments: TROPONIN-I EXPECTED VALUES <0.045 Negative 0.045 - 0.590 Consistent with Cardiac Damage > OR = 0.600 Critical Value Not every elevated troponin is indicative of NV. T hesevalues should be used with clinical judgement in examiningthe patient's clinical picture for diagnosis. To establisha diagnosis of NV versus myocardial injury, there must be ademonstrated rise and/ or fall in the troponin values, inaddition to ischemic symptoms, EKG changes, new regionalwall motion abnormality, and/or angiographical evidence. PLEASE NOTE: REFERENCE RANGES EDITED 02/06/1805-Apr-201805-Ztj-395493:08 Ammonia Comments: [facility] [place], [address] AMMONIA 20.0 umol/L (Normal) Range: 11-32 42-Hon-739659:08 CBC-Complete Blood Cnt No Diff Comments: [place] [address] [place], [address] MPV 10.6 fL (Normal) Range: 6.2-12.0 [...] 4.2-5.4 WBC 6.6 K/mm3 (Normal) Range: 4.4-11.0 29-Vvy-746389:08 Comprehensive Metabolic Profil Comments: [facility] [address] [place], [address] GAP 9 (Normal) Range: 5-15 CO2 35.0 [...] Comments: Please note revised GLUCOSE reference range yhrrneocu87/02/2018. 55-Ifr-475450:08 Differential Comment Comments: [facility] [address] [place], [address] SMEAR COMMENT COMMENT (Normal) Comments: SLIDE SCANNED - 1+ ANISO NOTED. :55 Urinalysis, Complete Comments: How was Urine Obtained? [facility] Uyppbfpept7046 [address]. [place], [id number] AMORPHOUS 2+ (Normal) HYALINE CAST 5-10 SEEN [...] (Normal) :55 Urine Drug Screen (VISTA) Comments: [facility] Yqpxjjstkm2461 [address] [place], [address] TO BE CONFIRMED (Normal) Comments: CONFIRMATORY TESTING [...] TESTING MUST BE ORDERED SEPARATELY. USE TESTMNEMONIC: [facility] 29-Gbw-22280:59 Bedside Glucose Comments: [facility] LaboratoryPoint of Gdec3813 [address] [place] [address] BEDSIDE GLU 169 mg/dL (Abnormal) Range: 70-110 Comments: MANAGEMENT OF PATIENT CARE PER NURSING PROTOCOL 80-Xhd-22538:35 Basic Metabolic Profile (BMP) Comments: [facility] Rbaljpiuxh8508 [address] [place], [id number] GAP 16 (Abnormal) Range: 5-15 CO2 15.0 mmol/L (Abnormal) Range: 21.0-32.0 CL 104 mmol/L (Normal) Range: 98-107 K 6.2 mmol/L (Abnormal) Range: 3.5-5.1 Comments: Critical Result(s) Called at: 01:06:28 03/08/2018 by:ANSLEY STANFORD,DRILLER PORTABLE NA 135 mmol/L (Abnormal) Range: 136-145 CA [...] A.D.A. criteria.Please note revised GLUCOSE reference range zvhwyifzq55/02/2018. 12-Ofn-693838:59 Acetaminophen (Tylenol) Level Comments: [facility] Iikxqoytga0114 [address] [place], [address] ACETAMINOPHEN 4.9 ug/mL (Abnormal) Range: 10.0-30.0 Comments: Slight Icterus, Result may be falsely decreased. 73-Zoy-206712:59 Acetone Serum Comments: [place] [address] [address] [place], [address] ACETONE SERUM NEGATIVE (Normal) :59 Alcohol, Blood (Medical)-Serum Comments: [place] [address] [address] [place], [address] SERUM ETOH 8.0 mg/dL (Normal) Comments: The serum:whole blood ethanol ratio is approximately 1.14and varies slightly with hematocrit.Medical Alcohol reference interval and critical value innon-tolerant individuals; 50 - 100 Impairment 100 Intoxication 100 - 250 Severe Poisoning 250 - 400 Deep/possible fatal coma :59 Digoxin Level Comments: [address] [place], [address] DIG 0.32 ng/mL (Abnormal) Range: 0.80-2.00 22-Pys-529180:59 Lactic Acid Comments: Yes/No query for Sepsis Lactate Rule [place] [address] [place], [address] LACTIC ACID 12.4 mmol/L (Abnormal) Range: 0.4-2.0 Comments: Critical Result(s) Called at: 00:52:58 03/08/2018 by:ANSLEY OWENS RN ED 50-Lda-768816:59 Partial Thromboplast Time Comments: [place] [address] [address] [place], [address] PTT 33.7 s (Normal) Range: 24.1-36.2 17-Anx-070310:59 Prothrombin Time w/INR Comments: [place] [address] [address] [place], [address] INR 2.4 (Normal) PROTIME 26.4 s (Abnormal) Range: 11.7-14.9 92-Cks-439025:59 Salicylate Comments: [place] [address] [place], [address] SALICYLATE < 1.7 mg/dL (Abnormal) Range: 2.8-20.0 Comments: Slight Icterus, Result may be falsely decreased. 70-Phk-704646:02 Blood Gases by [facility] Comments: [facility] LaboratoryPoint of Eajy6755 [place] [address] SO2 ISTAT 99 % (Normal) Range: [...] Radial (Normal) BLD GAS TYPE ART (Normal) 97-Nlf-084647:52 Bedside Glucose Comments: [facility] [place] [address] [place] [address] BEDSIDE GLU 214 mg/dL (Abnormal) Range: 70-110 Comments: MANAGEMENT OF PATIENT CARE PER NURSING PROTOCOL 77-Zik-639457:37 Basic Metabolic Profile (BMP) Comments: [place] [address] [place], [address] GAP 19 (Abnormal) Range: 5-15 CO2 [...] A.D.A. criteria.Please note revised GLUCOSE reference range byyqvgjam76/02/2018. 88-Dka-262266:37 CBC W/Diff, Automated Comments: [facility] Coebpiyqdf6661 [place], [address] CRENATED RBC 1+ (Normal) ANISO 1+ (Normal) [...] K/mm3 (Normal) Range: 4.4-11.0 :37 Lipase Comments: [facility] Btdznzxnna4999 [address] [place], [place], [address] LIPASE 86 U/L (Normal) Range: 73-393 56-Jqe-944021:37 Liver Profile Comments: [address] [place] [place], [place], [address] D BILI 1.07 mg/dL (Abnormal) Range: 0.00-0.30 T BILI 2.40 mg/dL (Abnormal) Range: 0.20-1.00 ALT 120 U/L (Abnormal) Range: 13-56 ALK P 94 U/L (Normal) Range: 45-117 AST 149 U/L (Abnormal) Range: 15-37 Comments: Moderate Hemolysis, Result may be falsely increased. GLOB 2.9 g/dL (Normal) Range: 2.2-4.2 ALB 3.0 g/dL (Abnormal) Range: 3.2-5.0 T PROT 5.9 g/dL (Abnormal) Range: 6.4-8.2 :37 Magnesium Comments: [address] [place] [place], [place], [address] MG 2.0 mg/dL (Normal) Range: 1.6-2.6 Comments: Moderate Hemolysis, Result may be falsely increased. 58-Eet-234158:37 Troponin-I Comments: [address] [place] [place], [place], [address] TROPONIN-I 0.081 ng/mL (Abnormal) Comments: TROPONIN-I EXPECTED VALUES <0.045 Negative 0.045 - 0.590 Consistent with Cardiac Damage > OR = 0.600 Critical Value Not every elevated troponin is indicative of NV. T hesevalues should be used with clinical judgement in examiningthe patient's clinical picture for diagnosis. To establisha diagnosis of NV versus myocardial injury, there must be ademonstrated rise and/ or fall in the troponin values, inaddition to ischemic symptoms, EKG changes, new regionalwall motion abnormality, and/or angiographical evidence. PLEASE NOTE: REFERENCE RANGES EDITED 02/06/1824-Feb-20183-Ieg-117931:21 CMV ANTIBODY (11222) Comments: today; PATIENT NOT FASTINGPERFORMED BY: [employer] Hedhyw3556 [facility] [id number] Cytomegalovirus (CMV) Ab, IgG <0.60 U/mL (Normal) Range: 0.00-0.59 Comments: Negative <0.60 Equivocal 0.60 - 0.69 Positive >0.69 4-Hbg-933340:21 HEPATITIS PANEL (20018) Comments: today; PATIENT NOT FASTINGPERFORMED BY: [employer] Tqkwuy1408 [facility] [id number] Hep C Virus Ab <0.1 {s/co_ratio} (Normal) Range: 0.0-0.9 Comments: Negative: < 0.8 Indeterminate: 0.8 - 0.9 Positive: > 0.9 . The CDC recommends that a positive HCV antibody result be followed up with a HCV Nucleic Acid Amplification test (229250). Hep B Core Ab, IgM Negative (Normal) HBsAg Screen Negative (Normal) Hep A Ab, IgM Negative (Normal) 1-Sug-238897:21 EBV Panel (04907) Comments: today; PATIENT NOT FASTINGPERFORMED BY: [facility]io[facility] of Burlington CountyZekbwa7386 [facility] [id number] Interpretation: SPRCS (Normal) Comments: EBV Interpretation Chart [...] <36.0 Equivocal 36.0 - 43.9 Positive >43.9 84-Puc-580166:19 CBC W/Diff, Automated Comments: Order Date: 02/23/18Order Info: 0184-1 - CBCDOrder Info: 94717-6 - [facility] Mhphzxufqs9292 [place], [address] MACROCYTE 1+ (Normal) ANISO RARE (Normal) Absolute [...] 4.2-5.4 WBC 6.9 K/mm3 (Normal) Range: 4.4-11.0 44-Ywl-117018:19 Comprehensive Metabolic Profil Comments: Order Date: 02/23/18Order Info: 0786-1 - CMPOrder Info: 1798-8 - AMYOrder Info: 3040-3 - [facility] Aagvyfgted4918 [address] [place], [place], [address] GAP 11 (Normal) Range: 5-15 CO2 25.0 [...] A.D.A. criteria.Please note revised GLUCOSE reference range ennslhvko81/02/2018. 99-Tir-898556:19 Erythrocyte Sed Rate Comments: Order Date: 02/23/18Order Info: 0184-1 - CBCDOrder Info: 50867-7 - [facility] [address]kgsloqvhz1280 [place], [address] SED RATE 16 mm/h (Normal) Range: 0-30 78-Ibc-255525:19 Lipase (62305) Comments: Order Date: 02/23/18Order Info: 0786- 1 - CMPOrder Info: 1798-8 - AMYOrder Info: 3040-3 - [facility] Lvtdsdymqb3613 [place], [address] LIPASE 92 U/L (Normal) Range: 73-393 58-Prs-101492:19 Amylase (64506) Comments: Order Date: 02/23/18Order Info: 0786- 1 - CMPOrder Info: 179-8 - AMYOrder Info: 3040-3 - [facility] Qkwkdwlqbr6054 [place], [address] ARIAN 27 U/L (Normal) Range: 25-115 6-Icj-840916:15 Amylase Comments: CMP, CBCD IS FOR DR ORONA IS FOR [facility] Rpzcvlnzar1083 [place], [address] ARIAN 29 U/L (Normal) Range: 25-115 2-Ync-019980:15 CBC W/Diff, Automated Comments: CMP, CBCD IS FOR DR ORONA IS FOR [facility] Addjzmulhh1176 [place], [address] ANISO 1+ (Normal) Absolute Lymph 0.41 {X10_3/ul} [...] 4.2-5.4 WBC 5.3 K/mm3 (Normal) Range: 4.4-11.0 2-Gwm-301821:15 Comprehensive Metabolic Profil Comments: CMP, CBCD IS FOR DR ORONA IS FOR [facility]ILITY[facility]cedesW[facility] Sepsgimcbs2467 [place], [place], [address] GAP 9 (Normal) Range: 5-15 CO2 27.0 [...] A.D.A. criteria.Please note revised GLUCOSE reference range pqyuubobh63/02/2018. 3-Jip-982946:15 Digoxin Level Comments: CMP, CBCD IS FOR DR ORONA IS FOR [facility] Twtvfgpyml0091 [place], [address] DIG 0.92 ng/mL (Normal) Range: 0.80-2.00 5-Zts-565212:15 Lipase Comments: CMP, CBCD IS FOR DR ORONA IS FOR [facility] Dzqaqvbdkx5781 [address] [place], [place], [address](875) LIPASE 101 U/L (Normal) Range: 73-393 2-Zzw-524268:15 Lipid Profile Comments: CMP, CBCD IS FOR DR ORONA IS FOR [facility] Asnuecbfjq1417 [place], [address](525) VLDL 15 mg/dL (Normal) Range: 5-40 LDL [...] 200-240 mg/dL Borderline >240 mg/dL High Risk 9-Rdl-883203:15 Magnesium Comments: CMP, CBCD IS FOR DR ORONA IS FOR [facility] Bozcpikyqd2030 [place], [address] MG 1.8 mg/dL (Normal) Range: 1.6-2.6 5-Qur-912788:15 Microalb:Creat Ratio,Random UR Comments: CMP, CBCD IS FOR DR ORONA IS FOR [facility] Wnbzcgntcl2023 [place], [address] MALB:CREAT 34.3 {mg/g_CRE} (Abnormal) MICROALBUMIN,UR 58.6 mg/L (Normal) UR CREAT 171.00 mg/dL (Normal) 6-Wxj-454000:15 Thyroid Stim Hormone (TSH) Comments: CMP, CBCD IS FOR DR ORONA IS FOR [facility] Oeofukxqnt7672 [place], [address] TSH 1.84 {uIU/mL} (Normal) Range: 0.358-3.74 3-Ktl-710020:15 Vitamin B12 383 pg/mL (Normal) Comments: CMP, CBCD IS FOR DR ORONA IS FOR [facility] Uirtwtwiop7343 [place], [address] Range: 211-911 0-Ttj-459671:15 Vitamin D,25 Hydroxy Comments: CMP, CBCD IS FOR DR ORONA IS FOR DR Vallada[facility] Raihgvpgsp9632 [address] [place], [address] Vitamin D 25-OH 72.0 ng/mL (Normal) Range: 29.95-100.01 Comments: Vitamin D 25(OH) Status Range Deficiency <20 ng/mL (50nmol/L) Insuffciency 20 - 30 ng/mL (50 - 75 nmol/L) Sufficiency 30 - 100 ng/mL (75 - 250 nmol/L) Toxicity >100 ng/mL (>250 nmol/L) 32-Wpg-859134:14 Blood Glucose , Office (19872) Blood Glucose , Office 137 (Normal) 86-Lsa-557449:14 HgA1C , Office (06410) HgA1C , Office 6.1 % (Normal) Range: 4.6 - 7.1 09-Syl-90613:35 CBC W/Diff, Automated Comments: [facility] Rbcmzhaqpu6567 [address] [place], [address] Absolute Lymph 1.30 {X10_3/ul} (Normal) Range: 0.83-4.51 [...] 4.2-5.4 WBC 4.2 K/mm3 (Abnormal) Range: 4.4-11.0 37-Sel-14636:33 Comprehensive Metabolic Profil Comments: Reason for Laboratory Test [facility] Wjpbesfeot8484 [address] [place], [place], [address] GAP 8 (Normal) Range: 5-15 CO2 31.0 mmol/L (Normal) Range: 21.0-32.0 CL 99 mmol/L (Normal) Range: 98-107 K 3.4 mmol/L (Abnormal) Range: 3.5-5.1 NA 138 mmol/L (Normal) Range: 136-145 T BILI 0.70 mg/dL (Normal) Range: 0.20-1.00 ALT 27 U/L (Normal) Range: 13-56 Comments: Please note revised ALT reference range hdyndndzc17/28/2018. ALK P 102 U/L (Normal) Range: 45-117 [...] A.D.A. criteria.Please note revised GLUCOSE reference range ugxfyxnbb01/02/2018. 60-Gza-93378:33 LDH 198 U/L (Normal) Comments: Reason for Laboratory Test OVSerial Specimen #1, #2 or #3? 1WW[facility]ot [facility] Aftrgqkxrg9558 [facility] [address]. [place], [place], [address] Range: 84-246 38-Gpq-950618:15 Culture, Urine Comments: [facility] Pmmgnihexg27[address] [place] [place], [place], [address] CUUR See Note (Normal) Comments: VERBAL ORDER DR. IRVIN'S OFFICE Urine CultureORGANISM 1: Mixed Gram Positive OrganismsColony Count 11,000-25,000MIX CULTURE Mixed contaminants. Submit a new specimen if indicated. 90-Czj-840285:11 CBC W/Diff, Automated Comments: [facility] Fxxuooraft5461 [facility] [address]. [place], [place], [address] Absolute Lymph 1.34 {X10_3/ul} (Normal) Range: 0.83-4.51 [...] 4.2-5.4 WBC 5.4 K/mm3 (Normal) Range: 4.4-11.0 13-Loo-041938:11 Comprehensive Metabolic Profil Comments: Comments: [facility] Fptrxbwtbb4623 [address], [place], [address] GAP 7 (Normal) Range: 5-15 CO2 28.0 mmol/L (Normal) Range: 21.0-32.0 CL 100 mmol/L (Normal) Range: 98-107 K 3.9 mmol/L (Normal) Range: 3.5-5.1 NA 135 mmol/L (Abnormal) Range: 136-145 T BILI 0.70 mg/dL (Normal) Range: 0.20-1.00 ALT 31 U/L (Normal) Range: 13-56 Comments: Please note revised ALT reference range sogwbuamb23/28/2018. ALK P 110 U/L (Normal) Range: 45-117 [...] A.D.A. criteria.Please note revised GLUCOSE reference range efptczbmj42/02/2018. 81-Eaq-551915:10 Urinalysis, Complete Comments: ORDERED UACDR.JACINDA ORDERED CMP AND CBCDComments: clean catchComments: clean catchHow was Urine Obtained? FISHER EEL TO [facility] Msgduhgibw0220 [place], [address] MUCUS, URINE RARE {/hpf} (Normal) [...] (Normal) CLARITY Cloudy (Normal) COLOR Yellow (Normal) 0-Xim-847926:42 ,Serum,hCG Quali. Comments: Comments: use blood in [facility] Pfyutitcfo2915 [place], [address] HCGSQUAL NEGATIVE {Negative} (Normal) Range: 0-9 Nonpreg HCG Qual triggr 2 m[iU]/mL (Normal) 1-Cww-174225:41 Basic Metabolic Profile (BMP) Comments: [facility] Amnlrlfzoq3724 [address] [place], [address] GAP 10 (Normal) Range: 5-15 CO2 28.0 [...] A.D.A. criteria.Please note revised GLUCOSE reference range scqzrgupq63/02/2018. 5-Pzo-768127:41 CBC-Complete Blood Cnt No Diff Comments: [facility] Hrbuxkehpn3817 [facility]. [place], [place], [address] MPV 9.6 fL (Normal) Range: 6.2-12.0 PLT [...] 4.2-5.4 WBC 8.7 K/mm3 (Normal) Range: 4.4-11.0 9-Ltj-149911:41 Prothrombin Time w/INR Comments: [facility] Tmocdjpbis7162 [place], [address] INR 1.0 (Normal) PROTIME 12.9 s (Normal) Range: 11.7-14.9 03-Nov-20179:00 Culture, Urine Comments: [facility] Nphlepsbwj9340 [place], [address] CUUR See Note (Normal) Comments: [...] &lt ;=20 S(NF) indicates non-formulary drug at [facility]. Approval by Infectious Disease Specialist required before non- formulary drugs may be ordered and/or dispensed. :27 AFP, Tumor Marker Comments: Is Patient ? NPatient's Weight (LBS.): 124Number of Fetuses: 0[facility] (refer to report for specific site)refer to report for address and phone number AFP TUMOR 2253 6.8 ng/mL (Normal) Range: 0.0-8.3 Comments: Khanh ECLIA methodologyPerformed at: CB - [facility] [address] [id number] Director: Omar Hood PhD, Phone: [phone] 99-Tht-15705:27 CBC W/Diff, Automated Comments: [facility] Wyywqidwwo0986 [place], [address] Absolute Lymph 1.47 {X10_3/ul} (Normal) [...] 4.2-5.4 WBC 6.0 K/mm3 (Normal) Range: 4.4-11.0 88-Wbp-30786:27 Comprehensive Metabolic Profil Comments: [facility] Uoiihzvngo0829 [address] [place], [place], [address] GAP 9 (Normal) Range: 5-15 CO2 28.0 [...] Range: 70-110 :27 Microalb:Creat Ratio,Random UR Comments: [facility] Mgzthjowxq3824 [facility] [address] [place], [place], [address] MALB:CREAT 17.4 {mg/g_CRE} (Normal) MICROALBUMIN,UR 37.5 mg/L (Normal) UR CREAT 215.00 mg/dL (Normal) :40 CBC W/Diff, Automated Comments: [facility] Iuuhlbzpsu3583 [facility] [address] [place], [place], [address] Absolute Lymph 1.60 {X10_3/ul} (Normal) Range: 0.83-4.51 [...] 4.2-5.4 WBC 10.9 K/mm3 (Normal) Range: 4.4-11.0 33-Jyi-34511:39 Comprehensive Metabolic Profil Comments: Order Date: 12/06/16Order Info: 0786-1 - *CMP Complete Metabolic PanelWWyandot Memorial Hospital Tpuasgdxyo0489 [place], [address] GAP 10 (Normal) Range: 5-15 CO2 27.0 [...] per A.D.A. criteria. :15 Culture, Urine Comments: [facility] Dklzhxgova7575 [place], [address] CUUR See Note (Normal) Comments: Urine CultureORGANISM [...] $ <=20 S(NF) indicates non-formulary drug at [facility]. Approval by Infectious Disease Specialist required before non-formulary drugs may be ordered and/or dispensed. :35 HgA1C , Office (69871) HgA1C , Office 6.5 % (Normal) Range: 4.6 - 7.1 :07 AFP, Tumor Marker Comments: Is Patient ? [facility] (refer to report for specific site)refer to report for address and phone number AFP TUMOR 2253 8.5 ng/mL (Abnormal) Range: 0.0-8.3 Comments: Khanh ECLIA methodologyPerformed at: - [facility] [address] [id number] Director: Omar Hood PhD, Phone: [phone] CBC W/Diff, Automated Comments: [facility] Wqqieqjrlh9647 [place], [address] Absolute Lymph 1.17 {X10_3/ul} (Normal) [...] Range: 4.4-11.0 :07 Comprehensive Metabolic Profil Comments: [facility] Snbbpzjhdy8015 [address] [place], [place], [address] GAP 9 (Normal) Range: 5-15 CO2 28.0 [...] the [place] Food and Drug Administration.Performed at: [employer] [facility] [place] [address] [place], [place] [id number] Director: Zia Jarvis MD, Phone: [phone] INS RES/DIAB RK . (Normal) LDL SIZE [...] . (Normal) :07 Vitamin D,25 Hydroxy Comments: [facility] Gwvtamwpme6050 [facility] [place], [address] Vitamin D 25-OH 61.8 ng/mL (Normal) Comments: Vitamin D 25(OH) Status Range Deficiency <20 ng/mL (50nmol/L) Insuffciency 20 - 30 ng/mL (50 - 75 nmol/L) Sufficiency 30 - 100 ng/mL (75 - 250 nmol/L) Toxicity >100 ng/mL (>250 nmol/L) :48 Liver Profile Comments: [facility] V[address]msiph[address] [place], [address] D BILI 0.14 mg/dL (Normal) Range: 0.00-0.30 T BILI 0.50 mg/dL (Normal) Range: 0.20-1.00 ALT 57 U/L (Normal) Range: 12-78 ALK P 94 U/L (Normal) Range: 45-117 AST 40 U/L (Abnormal) Range: 15-37 GLOB 2.8 g/dL (Normal) Range: 2.3-3.5 ALB 3.9 g/dL (Normal) Range: 3.4-5.0 T PROT 6.7 g/dL (Normal) Range: 6.4-8.2 :45 Potassium Comments: [facility] D[address]mvg[address] [place], [address] K 4.3 mmol/L (Normal) Range: 3.5-5.1 :35 CBC W/Diff, Automated Comments: [facility] [address]qvuihng[address] [place], [place], [address] Absolute Lymph 1.24 {X10_3/ul} (Normal) Range: 0.83-4.51 [...] Range: 4.4-11.0 :35 Comprehensive Metabolic Profil Comments: [facility] Nbbdswrzuc3253 [address] [place], [place], [address] GAP 10 (Normal) Range: 5-15 CO2 31.0 [...] 126 mg/dLsuggests DIABETES MELLITUS per A.D.A. criteria. 82-Alm-94322:0 ASPIRATION (SLIDES ONLY) See Note (Normal) Comments: [facility] Vpasupuajg4198 [facility] [place], [address] 0 Comments: Patient: IFEOMA ASHRAF : 1965 (52/F) Acct Num: [id number] Phys: Janelle KING,Alejandro Unit Num: [id number] Loc: LABSPEC Specimen: [id number] Received: 03/18/17 - 1126 Spec Ty pe: ASPIRATION TISSUES TISSUES: COMMENT Correlation with clinical, radiologic findings and appropriate follow up are necessary. CYTOLOGY GROSS Received are ten smears labeled wi th the patient's name and designated per the requisition as left thyroid FNA. Submitted for staining. / 03/18/17 TC:5 CPT: 91102 CYTOLOGY STUDY Slides are reviewed. The specimen [...] <signature on file> :30 HEPATITIS C ANTIBODY (51513) Comments: PATIENT NOT FASTINGPERFORMED BY: [facility]io[facility]lington CountyXkrxgj0522 [facility] [id number] Hep C Virus Ab <0.1 {s/co_ratio} (Normal) Range: 0.0-0.9 Comments: Negative: < 0.8 Indeterminate: 0.8 - 0.9 Positive: > 0.9 . The CDC recommends that a positive HCV antibody result be followed up with a HCV Nucleic Acid Amplification test (128440). :30 Potassium Serum (12582) Comments: PATIENT NOT FASTINGPERFORMED BY: [facility]ioL[facility] Burlington CountyGowssr6278 [facility] [id number] Potassium, Serum 4.8 mmol/L (Normal) Range: 3.5-5.2 :29 HgA1C , Office (79339) HgA1C , Office 7.9 % (Abnormal) Range: 4.6 - 7.1 :53 CBC W/Diff, Automated Comments: [facility] Ptjhleyojv3328 Ping [facility] [place], [address] Absolute Lymph 1.57 {X10_3/ul} (Normal) [...] 4.2-5.4 WBC 4.8 K/mm3 (Normal) Range: 4.4-11.0 08-Ker-62585:53 Comprehensive Metabolic Profil Comments: [facility] Unativsjim8927 [place], [address] GAP 11 (Normal) Range: 5-15 CO2 32.0 [...] per A.D.A. criteria. :53 Lipid Profile Comments: [facility] Hehnwptsbk2677 [address] [place], [place], [address] VLDL 37 mg/dL (Normal) Range: 5-40 LDL [...] High Risk :53 Microalb:Creat Ratio,Random UR Comments: [facility] Ulsjoqsijr3952 [address] [place], [place], [address] MALB:CREAT 19.7 {mg/g_CRE} (Normal) MICROALBUMIN,UR 27.8 mg/L (Normal) UR CREAT 141.00 mg/dL (Normal) :53 Thyroid Stim Hormone (TSH) Comments: [facility] [address] [place], [address] TSH 2.39 {uIU/mL} (Normal) Range: 0.358-3.74 :53 Vitamin D,25 Hydroxy Comments: [facility] [address] [place], [address] Vitamin D 25-OH 79.9 ng/mL (Normal) Comments: Vitamin D 25(OH) Status Range Deficiency <20 ng/mL (50nmol/L) Insuffciency 20 - 30 ng/mL (50 - 75 nmol/L) Sufficiency 30 - 100 ng/mL (75 - 250 nmol/L) Toxicity >100 ng/mL (>250 nmol/L) 69-Hhd-370069:08 CBC W/Diff, Automated Comments: [facility] [address]qaxwotv[address] [place], [address] Absolute Lymph 2.04 {X10_3/ul} (Normal) Range: [...] 4.2-5.4 WBC 9.0 K/mm3 (Normal) Range: 4.4-11.0 57-Vby-711821:08 Comprehensive Metabolic Profil Comments: [facility] Rxzvalhqaj5286 [place], [address] GAP 9 (Normal) Range: 5-15 CO2 27.0 [...] 126 mg/dLsuggests DIABETES MELLITUS per A.D.A. criteria. 42-Gok-883011:00 Culture, Urine Comments: [facility] Mdhiwnubtn8742 [address] [place], [place], [address] CUUR See Note (Normal) Comments: Urine CultureORGANISM 1: Mixed Gram Positive OrganismsColony Count >100,000MIX CULTURE Mixed contaminants. Submit a new specimen if indicated. 8-Tog-746079:25 CBC W/Diff, Auto - EPLAB Comments: At [facility] Medical Oncologypatients receive CBC w/auto Differential ONLY. Physicianwill place an order for a manual differential or Pathologistreview at his discretion. [facility]. [address] [place] [address] [address] HOUSE CALLS NURSE PRACTITIONER: MATEO CASTANEDA DO PH:[phone] [facility] Hospital Byveyobhaw4980 [address] [place], [place], [address] Absolute Lymph 1.42 {X10_3/uL} (Normal) Range: 0.83-4.51 [...] 4.2-5.4 WBC 6.3 K/mm3 (Normal) Range: 4.4-11.0 8-Vyv-545981:25 Comprehensive Metabolic Profil Comments: Order Date: 06/07/16Order Date: 06/07/16erial Specimen #1, #2 or #3? 1[facility] Frxnpkmnem3724 [place], [address] GAP 11 (Normal) Range: 5-15 CO2 24.0 [...] 200 mg/dLsuggests DIABETES MELLITUS per A.D.A. criteria. 0-Jhk-993323:25 LDH 208 U/L (Normal) Comments: Order Date: 09/12/16Order Date: 09/12/16Serial Specimen #1, #2 or #3? 1[facility] Vehjkolrfb9480 [address] [place], [address] Range: 84-246 1-Ufi-903419:25 Uric Acid Comments: Order Date: 06/07/16Order Date: 06/07/16Serial Specimen #1, #2 or #3? 1[facility] Tcmpcilmwd4344 [address] [place], [address] URIC 3.8 mg/dL (Normal) Range: 2.6-6.0 Comments: The drugs N-Acetylcysteine and Metamizole may falsely deressthis assay. :10 HgA1C , Office (32965) HgA1C , Office 8.0 % (Abnormal) Range: 4.6 - 7.1 :10 Blood Glucose , Office (24028) Blood Glucose , Office 223 (Normal) :24 AFP, Tumor Marker Comments: Is Patient ? [facility] (refer to report for specific site)refer to report for address and phone number AFP TUMOR 2253 8.5 ng/mL (Abnormal) Range: 0.0-8.3 Comments: [employer] ECLIA methodologyPerformed at: CB - [facility] [address] [id number] Director: Omar Hood PhD, Phone: [phone] :24 CBC W/Diff, Automated Comments: [facility] [id number] [address]ing [address] [place], [id number] Absolute Lymph 1.35 {X10_3/ul} (Normal) Range: 0.83-4.51 [...] 4.2-5.4 WBC 4.1 K/mm3 (Abnormal) Range: 4.4-11.0 02-Ljh-59593:24 Comprehensive Metabolic Profil Comments: [facility] Irnpyliiik2858 Ping [facility] [place] [facility]. [place], [place], [phone] GAP 9 (Normal) Range: 5-15 CO2 27.0 [...] 126 mg/dLsuggests DIABETES MELLITUS per A.D.A. criteria. 20-Fqq-35391:24 NMR Lipoprofile Comments: [facility] (refer to report [...] the US Food and Drug Administration.Performed at: [facility] [address] [place] [address] [id number] Director: Zia Jarvis MD, Phone: [phone] INS RES/DIAB RK . (Normal) LDL SIZE [...] mg/dL (Normal) Range: 100-199 LIPIDS . (Normal) 88-Duq-015316:53 CBC W/Diff, Automated Comments: [facility] Yyyhkhwxlp7103 [place], [address] Absolute Lymph 1.41 {X10_3/ul} (Normal) Range: 0.83-4.51 [...] 4.2-5.4 WBC 12.2 K/mm3 (Abnormal) Range: 4.4-11.0 86-Xgc-901069:53 Comprehensive Metabolic Profil Comments: [facility] Vphvmmtxyw1662 [place], [place], [address] GAP 13 (Normal) Range: 5-15 CO2 24.0 [...] 200 mg/dLsuggests DIABETES MELLITUS per A.D.A. criteria. 37-Ukl-65209:42 CBC W/Diff, Automated Comments: [facility] Jbelinjzls64[address] [place], [address] Absolute Lymph 1.92 {X10_3/ul} (Normal) Range: 0.83-4.51 [...] Range: 4.4-11.0 :42 Comprehensive Metabolic Profil Comments: [facility] Xzppblqkwh4974 [place], [address] GAP 11 (Normal) Range: 5-15 CO2 25.0 [...] :55 Magnesium Comments: Order Date: 06/07/16Order Date: 06/07/16[facility] Cybhlwumlt[address] [place], [address] MG 2.0 mg/dL (Normal) Range: 1.8-2.4 :57 CBC W/Diff, Auto - EPLAB Comments: At [facility] Oncologypatients receive CBC w/auto Differential ONLY. Physicianwill place an order for a manual differential or Pathologistreview at his discretion. [facility]. [address] [place] [address] [address] HOUSE CALLS NURSE PRACTITIONER: MATEO CASTANEDA DO PH:[phone] Reserve Hospital Ragoygjgfh4[address] [place], [place], [address] Absolute Lymph 1.38 {X10_3/uL} (Normal) Range: 0.83-4.51 [...] Profil Comments: Order Date: 06/07/16OV Order #: [id number] Specimen #1, #2 or #3? 1 [id number] Reserve Hospital Bcyldqaife7[address] [place], [address] GAP 13 (Normal) Range: 5-15 [...] (Normal) Comments: Order Date: 06/07/16OV Order #: [id number] Specimen #1, #2 or #3? 1 [id number] Reserve Hospital Hmaibgazjg4217 [place], [address] Range: 84-246 :56 Magnesium Comments: Order Date: 06/07/16OV Order #: [id number] Specimen #1, #2 or #3? [id number] [place] [address] Pczeczzdpd1603 [place], [address] MG 1.5 mg/dL (Abnormal) Range: 1.8-2.4 :56 Uric Acid Comments: Order Date: 06/07/16OV Order #: [id number] Specimen #1, #2 or #3? [id number] [place] [address] Agrrgkvvip4008 [place], [address] URIC 4.8 mg/dL (Normal) Range: 2.6-6.0 Comments: The drugs N-Acetylcysteine and Metamizole may falsely deressthis assay. :30 Liver Profile Comments: [facility] Coanfwwsqp9766 [address] [place], [address]211(923) D BILI 0.13 mg/dL (Normal) Range: 0.00-0.30 T BILI 0.40 mg/dL (Normal) Range: 0.20-1.00 ALT 60 U/L (Normal) Range: 12-78 ALK P 126 U/L (Normal) Range: 50-136 AST 37 U/L (Normal) Range: 15-37 GLOB 2.7 g/dL (Normal) Range: 2.3-3.5 ALB 3.4 g/dL (Normal) Range: 3.4-5.0 T PROT 6.1 g/dL (Abnormal) Range: 6.4-8.2 :33 CBC W/AUTO DIFF WBC Comments: PATIENT NOT FASTINGPERFORMED BY: [facility] Aqxsfm2681 Mohinder [facility] [id number] Information: NURSE DRAW (24467) Immature Grans (Abs) 0.0 {x10E3/uL} (Normal) Range: [...] PANEL, COMPREHENSIVE Comments: PATIENT NOT FASTINGPERFORMED BY: [facility] CountyNjnptc3949 [facility] [id number] (02480) ALT (SGPT) 41 [iU]/L (Abnormal) Range: 0-32 [...] (Abnormal) Range: 65-99 :09 HgA1C , Office (38136) HgA1C , Office 7.0 % (Normal) Range: 4.6 - 7.1 :14 AFP, Tumor Marker Comments: Is Patient ? [facility] (refer to report for specific site)refer to report for address and phone number AFP TUMOR 2253 7.7 ng/mL (Normal) Range: 0.0-8.3 Comments: Khanh ECLIA methodologyPerformed at: CB - [facility] [place] [id number] Director: Omar Hood PhD, Phone: [phone] :14 CBC W/Diff, Automated Comments: [facility] Mqkfsfncdf8205 [facility] [place], [address] ; will review on 05/17 [...] 4.2-5.4 WBC 4.3 K/mm3 (Abnormal) Range: 4.4-11.0 82-Kad-80781:14 Comprehensive Metabolic Profil Comments: [facility] Kdusrovyqc3454 [address] [place], [place], [address] GAP 7 (Normal) Range: 5-15 CO2 28.0 [...] per A.D.A. criteria. :14 Lipid Profile Comments: [facility] Rnkgtosddh9787 [address] [place], [place], [address] VLDL 36 mg/dL (Normal) Range: 5-40 LDL [...] High Risk :14 Microalb:Creat Ratio,Random UR Comments: [facility] Qqlhiuzumt1060 [address] [place], [place], [address] ; will review on 05/17 MALB:CREAT 14.6 {mg/g_CRE} (Normal) MICROALBUMIN,UR 23.4 mg/L (Normal) UR CREAT 160.00 mg/dL (Normal) :14 Thyroid Stim Hormone (TSH) Comments: [facility] Xtxtzexztp6179 [place], [address] TSH 1.89 {uIU/mL} (Normal) Range: 0.358-3.74 :14 Vitamin D,25 Hydroxy Comments: [facility] Rcrwlsgswx4803 [address] [place], [address] ; will review on 05/17 Vitamin D 25-OH 53.2 ng/mL (Normal) Comments: Vitamin D 25(OH) Status Range Deficiency <20 ng/mL (50nmol/L) Insuffciency 20 - 30 ng/mL (50 - 75 nmol/L) Sufficiency 30 - 100 ng/mL (75 - 250 nmol/L) Toxicity >100 ng/mL (>250 nmol/L) :23 CBC W/Diff, Automated Comments: [facility] Aysfkvmpkm6077 [place], [address] Absolute Lymph 1.65 {X10_3/ul} (Normal) Range: [...] 4.2-5.4 WBC 4.4 K/mm3 (Normal) Range: 4.4-11.0 89-Yvm-33023:23 Comprehensive Metabolic Profil Comments: [facility] Rvtprrilrz7376 [place], [address] GAP 9 (Normal) Range: 5-15 CO2 30.0 [...] 126 mg/dLsuggests DIABETES MELLITUS per A.D.A. criteria. 49-Lob-501388:07 HgA1C , Office (10561) HgA1C , Office 8.5 % (Abnormal) Range: 4.6 - 7.1 :15 CBC W/Diff, Automated Comments: [facility] [address] [place], [place], [address] Absolute Lymph 1.76 {X10_3/ul} (Normal) Range: 0.83-4.51 [...] Range: 4.4-11.0 :15 Comprehensive Metabolic Profil Comments: [facility] J[address] [place], [address] GAP 13 (Normal) Range: 5-15 CO2 23.0 [...] per A.D.A. criteria. :15 Lipid Profile Comments: [facility] Tztxcjynrl3538 [address] [place], [place], [address] VLDL 45 mg/dL (Abnormal) Range: 5-40 LDL [...] High Risk :15 Vitamin D,25 Hydroxy Comments: [facility] Ipepxnscgv6937 [address] [place], [place], [address] Vitamin D 25-OH 28.8 ng/mL (Normal) Comments: Vitamin D 25(OH) Status Range Deficiency <20 ng/mL (50nmol/L) Insuffciency 20 - 30 ng/mL (50 - 75 nmol/L) Sufficiency 30 - 100 ng/mL (75 - 250 nmol/L) Toxicity >100 ng/mL (>250 nmol/L); ADDENDA: non-emergent till apt :35 CBC W/Diff, Automated Comments: [facility] Kqfaxdkyfu7138 [place], [address] Absolute Lymph 1.26 {X10_3/ul} (Normal) [...] 4.2-5.4 WBC 4.8 K/mm3 (Normal) Range: 4.4-11.0 08-Kwo-08177:35 Comprehensive Metabolic Profil Comments: [facility] Tngqpjguff6[address] [place], [place], [address] GAP 14 (Normal) Range: 5-15 CO2 26.0 [...] ASPIRATION (SLIDES ONLY) See Note (Normal) Comments: [facility] Ogbojfywhq75[address] [place], [place], [address] 0 Comments: Patient: IFEOAM ASHRAF : 1965 (50/F) Acct Num: [id number] Phys: Janelle KING,Alejandro Unit Num: [id number] Loc: LABSPEC Specimen: [id number] Received: 01/06/16 - 1129 Spec Ty pe: ASPIRATION TISSUES TISSUES: COMMENT Correlation with clinical, radiologic findings and appropriate follow up are necessary. CYTOLOGY GROSS Received are 10 smears labeled wit h the patient's name and designated per the requisition as fine needle aspiration left thyroid. Submitted for staining. 01/06/16 TC:5 CPT:54010 CYTOLOGY STUDY Slides are reviewed. The spe [...] Signed Toni Yepez 01/07/16 <signature on file> :29 CBC W/Diff, Auto - EPLAB Comments: At [facility] Medical Oncologypatients receive CBC w/auto Differential ONLY. Physicianwill place an order for a manual differential or Pathologistreview at his discretion. [facility]. [address] [place] [address] [address] HOUSE CALLS NURSE PRACTITIONER: MATEO CASTANEDA DO PH:[phone] Reserve Hospital Ndyiwwgsji9018 [address] [place], [place], [address] Absolute Lymph 1.49 {X10_3/uL} (Normal) Range: 0.83-4.51 [...] 4.2-5.4 WBC 4.6 K/mm3 (Normal) Range: 4.4-11.0 9-Jdp-260922:28 Comprehensive Metabolic Profil Comments: Serial Specimen #1, #2 or #3? [facility] Lhzfxdjwws3702 [place], [address] GAP 8 (Normal) Range: 5-15 CO2 26.0 [...] 126 mg/dLsuggests DIABETES MELLITUS per A.D.A. criteria. 3-Wfp-543289:28 LDH 213 U/L (Normal) Comments: Serial Specimen #1, #2 or #3? [address] [place] [address] Aslqhhwldr0611 [place], [address] Range: 84-246 5-Udh-940632:28 Magnesium Comments: Serial Specimen #1, #2 or #3? [address] [place] [address] [place], [address] MG 1.6 mg/dL (Abnormal) Range: 1.8-2.4 7-Mzi-822724:28 Uric Acid Comments: Serial Specimen #1, #2 or #3? [address] [place] [address] [place], [address] URIC 4.8 mg/dL (Normal) Range: 2.6-6.0 26-Nov-20159:36 Miscellaneous Lab Procedure Comments: Comments: [id number] URINE TOX,RUN LOWEST TESTTest(s) Ordered: [id number] URINE TOX,RUN LOWEST TESTWestern Reserve Hospital [address] [place], [address] [facility] Comments: [id number] 6+OXYCODONE-BUND (ng/mL)DRUG RESULT SCREEN CUTOFF____ Amphetamines,Urine Negat LAB (Normal) scott ng/mL 1000Amphetamine test includes Amphetamine and Methamphetamine.Barbiturates Negative ng/mL 200Benzodiazepines Negative ng/mL 200Cannabinoid TEST Negative ng/mL 20Cocaine (Metab) Negative ng/mL 300Opiates Positive ng/mL 300 Opiates test includes Codeine, Morphine, Hydromorphone, [place] codone.Please Note:Confirmation performed by Mass SpectrometryCodeine NegativeMorphine NegativeHydromorphone NegativeHydrocodone Positive Hydrocodone Confirm 1950 ng/mL 300Oxycodone/Oxymorphone,Urine Negative ng/mL 300 Test includes Oxydodone and Oxymorphone. TESTI NG PERFORMED AT [facility]. ORIGINAL REPORT ON FILE IN LAB CONTAINS ADDITIONAL TEST SITE INFORMATION. 26-Nov-20159:36 Urine Drug Screen (VISTA) Comments: Comments: [id number] URINE TOX,RUN LOWEST TESTList of Drugs Taken or Suspected? [facility]WW[facility] Hvjnrsfnad5112 [address] [place], [address] ; ordered by Basali THC NEGATIVE (Normal) [...] TESTING MUST BE ORDERED SEPARATELY. USE TESTMNEMONIC: [facility] 24-Omj-773593:20 HgA1C , Office (47899) HgA1C , Office 7.3 % (Abnormal) Range: 4.6 - 7.1 :13 AFP, Tumor Marker Comments: Is Patient ? [facility] (refer to report for specific site)refer to report for address and phone number AFP TUMOR 2253 6.4 ng/mL (Normal) Range: 0.0-8.3 Comments: [employer] ECLIA methodologyPerformed at: [facility] [address] [id number] Director: Omar Hood PhD, Phone: [phone] :13 CBC W/Diff, Automated Comments: [facility] [address]ucq[address]upgof[address] [place], [address] Absolute Lymph 1.59 {X10_3/ul} (Normal) [...] Range: 4.4-11.0 :13 Comprehensive Metabolic Profil Comments: [facility] Nnxyrksvso2833 [place], [address] GAP 10 (Normal) Range: 5-15 CO2 24.0 [...] per A.D.A. criteria. :13 Lipid Profile Comments: [facility] Ik[address] [place], [address] ; non-emergent and pt has [...] High Risk :13 Microalb:Creat Ratio,Random UR Comments: [facility] [address] [place], [address] MALB:CREAT 17.0 {mg/g_CRE} (Normal) MICROALBUMIN,UR 43.7 mg/L (Normal) UR CREAT 257.00 mg/dL (Normal) :13 Thyroid Stim Hormone (TSH) Comments: [facility] [address] [place], [address] TSH 1.82 {uIU/mL} (Normal) Range: 0.358-3.74 :13 Vitamin D,25 Hydroxy Comments: [facility] [address] [place], [address] ; will review at 11/10 appt Vitamin D 25-OH 39.8 ng/mL (Normal) Comments: Vitamin D 25(OH) Status Range Deficiency <20 ng/mL (50nmol/L) Insuffciency 20 - 30 ng/mL (50 - 75 nmol/L) Sufficiency 30 - 100 ng/mL (75 - 250 nmol/L) Toxicity >100 ng/mL (>250 nmol/L) :40 CBC W/Diff, Automated Comments: [facility] Jckgvhvjtf4996 [address] [place], [place], [address] Absolute Lymph 1.47 {X10_3/ul} (Normal) Range: 0.83-4.51 [...] Range: 4.4-11.0 :40 Comprehensive Metabolic Profil Comments: [facility] Lzshwgnaan0[address] [place], [place], [address] GAP 13 (Normal) Range: 5-15 CO2 24.0 [...] per A.D.A. criteria. :49 HgA1C , Office (37260) HgA1C , Office 7.8 % (Abnormal) Range: 4.6 - 7.1 04-Kex-386939:09 CBC W/Diff, Automated Comments: [facility] Valwywlhzu0536 [address] [place], [place], [address] Absolute Lymph 1.07 {X10_3/ul} (Normal) Range: 0.83-4.51 [...] 4.2-5.4 WBC 5.3 K/mm3 (Normal) Range: 4.4-11.0 09-Jae-310918:09 Comprehensive Metabolic Profil Comments: [facility] Vlzbhchzto4170 [address] [place], [place], [address] GAP 7 (Normal) Range: 5-15 CO2 28.0 [...] 200 mg/dLsuggests DIABETES MELLITUS per A.D.A. criteria. 4-Jst-183285:42 CBC W/Diff, Automated Comments: At [facility] Out[facility] Medical Oncologypatients receive CBC w/auto Differential ONLY. Physicianwill place an order for a manual differential or Pathologistreview at his discretion. [facility]. [address] [place] [address] [address] HOUSE CALLS NURSE PRACTITIONER: MATEO CASTANEDA DO PH:[phone] performed at:[facility] Laborato [address] [place], [place] [address] Absolute Lymph 1.60 {X10_3/ul} (Normal) Range: 0.83-4.51 [...] 4.2-5.4 WBC 7.0 K/mm3 (Normal) Range: 4.4-11.0 3-Bjz-679497:42 Comprehensive Metabolic Profil Comments: Serial Specimen #1, #2 or #3? 1Test performed at:[facility] Wyrtpejsdl2576 [address] [place], [place] [address] GAP 9 (Normal) Range: 5-15 CO2 25.0 [...] Comments: Please note revised CREATININE reference range lkzfxohkb16/22/2015. BUN 20 mg/dL (Abnormal) Range: 7-18 GLU 118 mg/dL (Abnormal) Range: 70-110 Comments: Fasting Glucose result from 110 to <126 mg/dLsuggests IMPAIRED HOMEOSTASIS per A.D.A. criteria. :42 LDH 133 U/L (Normal) Comments: Serial Specimen #1, #2 or #3? 1Test performed at:[facility] [address]rbe[address] [place] [address] Range: 84-246 9-Fnr-901961:42 Uric Acid Comments: Serial Specimen #1, #2 or #3? 1Test performed at:[facility] [address] [place], [place] [address] URIC 4.6 mg/dL (Normal) Range: 2.6-6.0 :02 CBC W/Diff, Automated Comments: Test performed at:[facility] [address]wgbnyzrjc[address] [place] [address] ; handled by vicki Absolute Lymph 1.23 [...] 4.2-5.4 WBC 4.1 K/mm3 (Abnormal) Range: 4.4-11.0 3-Pir-634444:02 Comprehensive Metabolic Profil Comments: Test performed at:[facility] Vzjpibxemy1623 [place] [address] GAP 12 (Normal) Range: 5-15 CO2 23.0 [...] Comments: Please note revised CREATININE reference range ldjtjvinl11/22/2015. BUN 11 mg/dL (Normal) Range: 7-18 GLU 214 mg/dL (Abnormal) Range: 70-110 Comments: Glucose result greater than or equal to 200 mg/dLsuggests DIABETES MELLITUS per A.D.A. criteria. :49 VITAMIN B-12 (CYANOCOBALAMIN) Comments: PATIENT NOT FASTINGPERFORMED BY: [facility] [id number] (32832) Vitamin B12 464 pg/mL (Normal) Range: 211-946 :49 Vitamin D Hydroxy (21106) Comments: PATIENT NOT FASTINGPERFORMED BY: [employer] Rgtfhj8360 Lang [facility] [id number] Vitamin D, 25-Hydroxy 11.5 ng/mL (Abnormal) Range: 30.0-100.0 Comments: Vitamin D deficiency has been defined by the [place] ofOhiohealth [facility] Hospitalcine and an Endocrine Society practice guideline as alevel of serum 25-OH vitamin D less than 20 ng/mL (1,2).The Endocrine Society went on to further define vitamin Dinsufficiency as a level between 21 and 29 ng/mL (2).1. IOM ([place] of Medicine). 2010. Dietary reference intakes for calcium and D. [place]: The National Academies Press.2. Sami MF, Sophie NC, Xiomara LARES, et al. Evaluation, treatment, and prevention of vitamin D deficiency: an Endocrine Society clinical practice guideline. JCEM. 2010; 96(7):1911-30. :49 CBC W/AUTO DIFF WBC Comments: PATIENT NOT FASTINGPERFORMED BY: [employer] Bdaytv0603 [facility] [id number] Information: [id number] (75728) Immature Grans (Abs) 0.0 {x10E3/uL} (Normal) Range: [...] 3.77-5.28 WBC 6.1 {x10E3/uL} (Normal) Range: 3.4-10.8 68-Pax-695865:28 URINE GENESIS CULTURE-NITA COL Comments: PATIENT NOT FASTINGPERFORMED BY: [facility] Yzyolt3368 [facility] [id number] Information: SRC:[facility] [id number] COUNT (27166) Antimicrobial MIHEAD (Normal) Comments: S = Susceptible; [...] Imipenem Meropenem Urine Final report (Abnormal) Culture,Comprehensive 78-Gwm-334623:24 Urinalysis, Office (11488) UA - LEUKOCYTE ESTERASE Trace (Normal) UA - NITRITE Negative (Normal) URINE UROBILINGN NITA TIMED Normal mg/dL (Normal) UA - PROTEIN 30 mg/dL (Normal) UA - PH 6 (Abnormal) UA - BLOOD Negative (Normal) UA - SPECIFIC GRAVITY 1.030 (Abnormal) UA - KETONES Moderate mg/dL (Normal) UA - BILIRUBIN Small (Normal) UA - GLUCOSE Negative (Normal) 01-Apr-20157:54 Bedside Glucose Comments: Test performed at:[facility] Jjxxbvoonq8472 [place], [place] [address] BEDSIDE GLU 129 mg/dL (Abnormal) Range: 70-110 Comments: MANAGEMENT OF PATIENT CARE PER NURSING PROTOCOL 31-Mar-20159:47 Urinalysis, Office (53810) UA - LEUKOCYTE ESTERASE Trace (Normal) UA - NITRITE Negative (Normal) URINE UROBILINGN NITA TIMED 2 mg/dL (Normal) UA - PROTEIN 300 mg/dL (Normal) UA - PH 6.0 (Normal) UA - BLOOD Hemolyzed Large (Normal) UA - SPECIFIC GRAVITY 1.030 (Abnormal) UA - KETONES 15 mg/dL (Abnormal) UA - BILIRUBIN Moderate (Normal) UA - GLUCOSE Negative (Normal) 01-Spq-495516:57 Basic Metabolic Profile (BMP) Comments: Test performed at:[facility] Zbzsohkseh3639 [place], [place] [address] GAP 11 (Normal) Range: 5-15 CO2 27.0 [...] 126 mg/dLsuggests DIABETES MELLITUS per A.D.A. criteria. 28-Qav-414879:57 Digoxin Level Comments: Test performed at:[facility] [address] [place] [address] DIG 1.17 ng/mL (Normal) Range: 0.80-2.00 55-Ipi-452789:57 Hemoglobin A1c Comments: Test performed at:[facility] Tmteiilahb[address] [place] [address] HGB A1C 7.0 % (Abnormal) Range: 4.2-6.3 91-Xqn-463323:57 Thyroid Stim Hormone (TSH) Comments: Test performed at:[facility] [address] [place] [address] TSH 0.89 {uIU/mL} (Normal) Range: 0.358-3.74 1-Hnt-912143:17 Urine Culture,Comprehensive Comments: PATIENT NOT FASTINGPERFORMED BY: [facility] Ogeipd7831 [facility] [id number] Information: SRC:[facility] [id number] Result 1 BETAGB (Abnormal) Comments: Beta hemolytic [...] 02/28/15How was Urine Obtained? CLEAN CATCHTest performed at:[facility] Wenrkawhyw4239 [facility] [place] [address] AMORPHOUS 1+ URATE (Normal) MUCUS, [...] :55 CBC W/Diff, Automated Comments: Test performed at:[facility] Xvmgwqvdep0803 [facility] [place] [address] Absolute Lymph 1.29 {X10_3/ul} (Normal) [...] 28-Feb-20153:55 Comprehensive Metabolic Profil Comments: Test performed at:[facility] Nyrdrqeagv9242 [place], [place] [address] GAP 10 (Normal) Range: 5-15 CO2 26.0 [...] A.D.A. criteria. :55 Lipase Comments: Test performed at:[facility] Qhcruyexyy6628 [place], [place] [address] LIPASE 142 U/L (Normal) Range: 70-290 5-Ucm-268768:40 HgA1C , Office (14690) HgA1C , Office 7.4 % (Abnormal) Range: 4.6 - 7.1 17-Jhb-775423:03 CBC W/Diff, Automated Comments: Test performed at:[facility] Ebcdybfadx8042 [facility] [place] [address] Absolute Lymph 1.31 {X10_3/ul} (Normal) Range: 0.83-4.51 [...] 4.2-5.4 WBC 5.1 K/mm3 (Normal) Range: 4.4-11.0 36-Bxh-239592:03 Comprehensive Metabolic Profil Comments: Test performed at:[facility] Crnrfgldyo9416 [place] [address] GAP 11 (Normal) Range: 5-15 CO2 26.0 [...] 126 mg/dLsuggests DIABETES MELLITUS per A.D.A. criteria. 58-Liz-218933:00 Culture, Urine Comments: Test performed at:[facility] [address]jyk[address] [place] [address] CUUR See Note (Normal) Comments: Urine CultureORGANISM 1: Streptococcus agalactiae (B)Pollock Count 1000-10,000 Streptococcus agalactiae (B): REACTION Ampicillin $ <=0.25 S Benzylpenicillin NF <=0.06 S Ceftriaxone (other dx) $ <=0.12 S Inducable Clindamycin Resistan - Linezolid $$$$ <=2 S Vancomycin $ 0.5 S(NF) indicates non-formulary drug at [facility]. Approval by Infectious Disease Specialist required before non-formulary drugs may be ordered and/or dispensed. * CLSI guidelines does not recommend testing of cephalosporins. This interpretation is deduced from Beta-lactam/penicillin results.; ADDENDA: handled by edvin 38-Kvp-88245:32 CBC W/Diff, Auto - EPLAB Only Comments: At [facility] Outpatient [facility], [facility] patientsreceive CBC w/auto Differential ONLY. Physician will placean order for a manual differential or Pathologist review athis discretion. [facility]. [address] [place] [address] [place] [address] HOUSE CALLS NURSE PRACTITIONER: MATEO CASTANEDA DO PH:[phone] performed at:[facility] Ktjwtafogp837 [address] [place] [address] ; Richie Absolute Neut 2.7 {X10_3/uL} (Normal) [...] Specimen #1, #2 or #3? 1Test performed at:[facility] Uzxzrpypkf6747 [place] [address] Range: 87-241 Comments: ADDENDA: richie :34 TSH (22777) Comments: PATIENT WAS FASTINGPERFORMED BY: [facility] Tbnnbj1985 [facility] [id number] TSH 1.240 {uIU/mL} (Normal) Range: 0.450-4.500 :34 LIPID PANEL (81109) Comments: PATIENT WAS FASTINGPERFORMED BY: [facility] Wykxna5765 [facility] [id number] LDL/HDL Ratio 2.6 {ratio_units} (Normal) Range: 0.0-3.2 [...] CREATININE RATIO Comments: PATIENT WAS FASTINGPERFORMED BY: [facility] Solutions[facility] Burlington CountyUbcctu6924 [facility] [id number]; non- emergent till apt tomorrow (13192) AND (87923) Microalb/Creat Ratio 14.8 {mg/g_creat} (Normal) Range: 0.0-30.0 Microalbumin, Urine 44.5 ug/mL (Abnormal) Range: 0.0-17.0 Creatinine, Urine 301.0 mg/dL (Abnormal) Range: 15.0-278.0 :34 METABOLIC PANEL, Comments: PATIENT WAS FASTINGPERFORMED BY: [employer]6370 [facility] [id number] Information: [id number] COMPREHENSIVE (04248) ALT (SGPT) 21 [iU]/L (Normal) Range: 0-32 [...] Glucose, Serum 161 mg/dL (Abnormal) Range: 65-99 [id number]-Cec-[id number]:10 HgA1C , Office (94871) HgA1C , Office 7.2 % (Abnormal) Range: 4.6 - 7.1 :47 CBC W/Diff, Automated Comments: Test performed at:[facility] [id number] [place], [place] [id number] ; Handled by Vicki [facility] Lymph 1.43 [...] 4.2-5.4 WBC 5.4 K/mm3 (Normal) Range: 4.4-11.0 [id number]-Odb-[id number]:47 Comprehensive Metabolic Profil Comments: Test performed at:[facility] Xu[address]oftfn[address] [place], [place] [id number] GAP 6 (Normal) Range: 5-15 CO2 30.0 [...] 126 mg/dLsuggests DIABETES MELLITUS per A.D.A. criteria. 30-Sep-20148:01 Microscopic Examination Comments: PATIENT NOT FASTINGPERFORMED BY: LabCoLour[facility] of Burlington CountyWpacit1019 [facility] [id number] Bacteria Few (Normal) Mucus Threads Present (Normal) Epithelial Cells (non renal) 0-10 {/hpf} (Normal) Range: 0 - 10 RBC 0-2 {/hpf} (Normal) Range: 0 - 2 WBC >30 {/hpf} (Abnormal) Range: 0 - 5 :01 Urinalysis, Routine Comments: PATIENT NOT FASTINGPERFORMED BY: [facility] Idsugr7057 Mohinder StuartAtrium Health Union [id number] Microscopic Examination See below: (Normal) Comments: Microscopic was indicated and was performed. Nitrite, Urine Negative (Normal) Urobilinogen,Semi-Qn 0.2 mg/dL (Normal) Range: 0.0-1.9 Bilirubin Negative (Normal) Occult Blood Negative (Normal) Ketones Trace (Abnormal) Glucose Negative (Normal) Protein 1+ (Abnormal) WBC Esterase 3+ (Abnormal) Appearance Turbid (Abnormal) Urine-Color Yellow (Normal) pH 6.0 (Normal) Range: 5.0-7.5 Specific [place] 1.030 (Normal) Range: 1.005-1.030 97-Goq-971952:18 CBCD ALC 1.30 {X10_3/ul} (Normal) Range: 0.83-4.51 [...] 4.2-5.4 WBC 4.5 K/mm3 (Normal) Range: 4.4-11.0 87-Yio-121133:18 CMP GAP 7 (Normal) Range: 5-15 CO2 [...] mg/dLsuggests DIABETES MELLITUS per A.D.A. criteria. :01 [id number]-[id number]-AVJNC (99163) Comments: PATIENT NOT FASTINGPERFORMED BY: SessionMCoLourdes Medical Center of Burlington CountyCvnpss1390 [facility] [id number] AFP, Serum, Tumor Marker 7.1 ng/mL (Normal) Range: 0.0-8.3 Comments: Khanh ECLIA methodology :01 PTT (Activated Partial Comments: PATIENT NOT FASTINGPERFORMED BY: SessionMCoLourdes Medical Center of Burlington CountyEtvptb6759 [facility] [id number] Thromboplastin Time) (67989) aPTT 25 {sec} (Normal) Range: 24-33 Comments: This test has not been validated for monitoring unfractionated heparintherapy. aPTT-based therapeutic ranges for unfractionated heparintherapy have not been established. For general guidelines onHeparin monitoring, refer to the [facility] Directory of Services. :01 PT (Prothrobim Time) (36179) Comments: PATIENT NOT FASTINGPERFORMED BY: [place] 1052770 [facility] [id number] Prothrombin Time 10.4 {sec} (Normal) Range: 9.1-12.0 INR 1.0 (Normal) Range: 0.8-1.2 Comments: Reference interval is for non-anticoagulated patients. . Suggested INR therapeutic range for Vitamin K anta gonist therapy: Standard Dose (moderate intensity therapeutic range): 2.0 - 3.0 Higher intensity therapeutic range 2.5 - 3.5 :01 TSH (80414) Comments: PATIENT NOT FASTINGPERFORMED BY: [facility]6370 [facility] [id number] TSH 1.450 {uIU/mL} (Normal) Range: 0.450-4.500 :01 CBC W/AUTO DIFF WBC Comments: PATIENT NOT FASTINGPERFORMED BY: [place] 1052770 [facility] [id number] Information: [id number] (86517) Immature Grans (Abs) 0.0 {x10E3/uL} (Normal) Range: [...] CREATININE RATIO Comments: PATIENT NOT FASTINGPERFORMED BY: [facility]tioPinon Health CenterMwhwpk2242 [facility] [id number] (34901) AND (10809) Microalb/Creat Ratio 26.4 {mg/g_creat} (Normal) Range: 0.0-30.0 Microalbumin, Urine 96.0 ug/mL (Abnormal) Range: 0.0-17.0 Creatinine, Urine 364.2 mg/dL (Abnormal) Range: 15.0-278.0 :01 METABOLIC PANEL, COMPREHENSIVE Comments: PATIENT NOT FASTINGPERFORMED BY: [facility]ioPinon [facility] CenterKgrcma6627 [facility] [id number] (72522) ALT (SGPT) 19 [iU]/L (Normal) Range: 0-32 [...] mg/dL (Abnormal) Range: 65-99 30-Sep-20148:01 LIPID PANEL (19583) Comments: PATIENT NOT FASTINGPERFORMED BY: LabCoLour[facility] of Burlington CountyNpxtvq1993 [facility] [id number] LDL/HDL Ratio 2.1 {ratio_units} (Normal) Range: 0.0-3.2 [...] (Normal) Range: 100-199 :19 HgA1C , Office (19112) HgA1C , Office 6.3 % (Normal) Range: [...] 4.2-5.4 WBC 7.0 K/mm3 (Normal) Range: 4.4-11.0 9-Ujo-652798:07 CMP GAP 7 (Normal) Range: 5-15 CO2 [...] & Aerobic Comments: PATIENT NOT FASTINGPERFORMED BY: [facility]Decisionsox NewmerixAt[facility] Union [id number] Information: SRC:WND [id number] RIGHT EYE Culture (86696) Antimicrobial MIHEAD (Normal) Comments: S = Susceptible; [...] hours. Anaerobic Culture Final report (Normal) :57 [id number] (75154) Comments: PATIENT WAS FASTINGPERFORMED BY: [employer] Fdsbih9315 [facility] [id number] AFP, Serum, Tumor Marker 9.2 ng/mL (Abnormal) Range: 0.0-8.3 Comments: Khanh ECLIA methodology :57 PTT (Activated Partial Comments: PATIENT WAS FASTINGPERFORMED BY: [place] 1052770 [facility] [id number] Thromboplastin Time) (42553) aPTT 26 {sec} (Normal) Range: 24-33 Comments: This test has not been validated for monitoring unfractionated heparintherapy. aPTT-based therapeutic ranges for unfractionated heparintherapy have not been established. For general guidelines onHeparin monitoring, refer to the [facility] Directory of Services. :57 PT (Prothrobim Time) (43586) Comments: PATIENT WAS FASTINGPERFORMED BY: [facility]6370 [facility] [id number] Prothrombin Time 10.5 {sec} (Normal) Range: 9.1-12.0 INR 1.0 (Normal) Range: 0.8-1.2 Comments: Reference interval is for non-anticoagulated patients. . Suggested INR therapeutic range for Vitamin K anta gonist therapy: Standard Dose (moderate intensity therapeutic range): 2.0 - 3.0 Higher intensity therapeutic range 2.5 - 3.5 :57 TSH (90990) Comments: PATIENT WAS FASTINGPERFORMED BY: [facility]6370 [facility] [id number] TSH 3.200 {uIU/mL} (Normal) Range: 0.450-4.500 :57 CBC WITH MANUAL DIFF Comments: PATIENT WAS FASTINGPERFORMED BY: [facility]6370 [facility] [id number] Information: [id number] (52877) Immature Grans (Abs) 0.0 {x10E3/uL} (Normal) Range: [...] PANEL, COMPREHENSIVE Comments: PATIENT WAS FASTINGPERFORMED BY: [facility]6370 [facility] [id number] (15752) ALT (SGPT) 15 [iU]/L (Normal) Range: 0-32 [...] (Abnormal) Range: 65-99 :29 HgA1C , Office (68732) HgA1C , Office 5.4 % (Normal) Range: [...] 7-18 GLU 76 mg/dL (Normal) Range: 70-110 0-Enx-668868:50 LIPID LDL 82 mg/dL (Normal) Range: 0-130 [...] CHOL 150 mg/dL (Normal) Comments: <200 mg/dL Mltnfpult647-012 mg/dL Borderline>240 mg/dL High Risk :50 HgA1C , Office (73430) HgA1C , Office 5.8 % (Normal) Range: [...] [facility]. Approximately 10% of breast cancers are not detected by mammography. Anormal mammogram should not delay biopsy of a clinically suspiciousabnormality. Signed:Prashant Delgadillo M.D.[facility] 2012 at 9:19:01 AM [phone] Signed GP/GP If you are the referring physician and would like to consult with theradiologist who provided this interpretation, please herbie Bonilla M.D. at [phone]. If this radiologist is unavailable, youwill be directed to another radiologist to assist. If you are a patient with a question regarding this report, pleaseco ntactyour referring physician directly. Professional Interpretation Provided By: [employer], Phone , These documents contain legally protected [...] on 06/15/13920 Sign by: Prashant Delgadillo MD 85-Cxn-80255:27 THYROID Radiology Report See Note Comments: STUDY: [...] Delgadillo M.D.June 15, 2013 at 2:56:26 PM [phone] Signed GP/GP If you are the referring physician and would like to consult with theradiologist who provided this interpretation, please contact Sarmad Bonilla at [phone]. If this radiologist is unavailable, youwill be directed to another radiologist to assist. If you are a patient with a question regarding this report, pleasecontactyour referring physician directly. Linda sional Interpretation Provided By: [employer], Phone , These documents contain legally protected [...] documents. Dictated on 06/15/13 1456 by Faustina KING,GabrieleTranscribed on 173 by ITS IMPORTSign by Faustina KING,Prashant on 06/15/131732 Sign by: Prashant Delgadillo MD 4-Zyy-796440:18 URINE GENESIS CULTURE-NITA COL Comments: PATIENT NOT FASTINGPERFORMED BY: [facility] Yfalwa5698 [facility] [id number] Information: SRC: [id number] COUNT (61227) Antimicrobial MIHEAD (Normal) Comments: S = Susceptible; [...] primarily for treating urinary tract infections. (CLSI, K419-P77,2009) Urine Culture,Comprehensive Final report (Normal) :48 Urinalysis, Office (24287) UA - LEUKOCYTE ESTERASE Large (Normal) UA - NITRITE Positive (Normal) URINE UROBILINGN NITA TIMED 2 mg/dL (Normal) UA - PROTEIN Negative mg/dL (Normal) UA - BLOOD Negative (Normal) UA - KETONES Moderate mg/dL (Normal) UA - BILIRUBIN Moderate (Normal) UA - GLUCOSE Small mg/dL (Normal) :06 MICROALBUMIN: CREATININE RATIO Comments: PATIENT WAS FASTINGPERFORMED BY: [facility] Vgbjsh4225 [address] [facility] [id number] (38625) AND (72111) Microalb/Creat Ratio 27.4 {mg/g_creat} (Normal) Range: 0.0-30.0 Microalbumin, Urine 85.2 ug/mL (Abnormal) Range: 0.0-17.0 Creatinine, Urine 311.1 mg/dL (Abnormal) Range: 15.0-278.0 67-Qbc-55147:06 METABOLIC PANEL, Comments: PATIENT WAS FASTINGPERFORMED BY: LabCoLourdes [facility] of Burlington CountyNpdbgs3322 [facility] [id number] Information: ADD [id number] AND DRAW FEE 99 9585 COMPREHENSIVE (94909) ALT (SGPT) 29 [iU]/L (Normal) Range: 0-32 [...] 76 mg/dL (Normal) Range: 65-99 :06 TSH (76770) Comments: PATIENT WAS FASTINGPERFORMED BY: [facility]iusDecisionsCox [facility]wn [id number] TSH 3.040 {uIU/mL} (Normal) Range: 0.450-4.500 :06 LIPID PANEL (21393) Comments: PATIENT WAS FASTINGPERFORMED BY: [employer] [facility] [id number] LDL/HDL Ratio 2.4 {ratio_units} (Normal) Range: 0.0-3.2 HDL Cholesterol 55 mg/dL (Normal) Comments: According to ATP-III Guidelines, HDL-C >59 mg/dL is considered anegative risk factor for CHD. LDL Cholesterol Calc 134 mg/dL (Abnormal) Range: 0-99 VLDL Cholesterol Ramandeep 18 mg/dL (Normal) Range: 5-40 Cholesterol, Total 207 mg/dL (Abnormal) Range: 100-199 Triglycerides 89 mg/dL (Normal) Range: 0-149 :06 [id number]-[id number] (55105) Comments: PATIENT WAS FASTINGPERFORMED BY: [employer] [facility] [id number] AFP, Serum, Tumor Marker 5.4 ng/mL (Normal) Range: 0.0-8.3 Comments: Khanh ECLIA methodology :06 PTT (Activated Partial Comments: PATIENT WAS FASTINGPERFORMED BY: [employer] [facility] [id number] Thromboplastin Time) (89677) aPTT 27 {sec} (Normal) Range: 24-33 Comments: This test has not been validated for monitoring unfractionated heparintherapy. aPTT-based therapeutic ranges for unfractionated heparintherapy have not been established. For general guidelines onHeparin monitoring, refer to the [facility] Directory of Services. :06 PT (Prothrobim Time) (43340) Comments: PATIENT WAS FASTINGPERFORMED BY: REINALDO LabOaklawn Hospital6370 [facility] [id number] INR 1.1 (Normal) Range: 0.8-1.2 Comments: Reference interval is for non-anticoagulated patients. . Suggested INR therapeutic range for Vitamin K anta gonist therapy: Standard Dose (moderate intensity therapeutic range): 2.0 - 3.0 Higher intensity therapeutic range 2.5 - 3.5 Prothrombin Time 11.0 {sec} (Normal) Range: 9.1-12.0 :51 HgA1C , Office (23619) HgA1C , Office 5.0 % (Normal) Range: [...] mg/dL (Normal) Range: 70-110 :03 Rapid Flu (71454 x 2) Influenza A Ag positive b (Normal) :27 METABOLIC PANEL, COMPREHENSIVE Comments: PATIENT WAS FASTINGPERFORMED BY: [employer] Fjdcoo7737 [facility] [id number] (17820) ALT (SGPT) 25 [iU]/L (Normal) Range: 0-32 [...] mg/dL (Normal) Range: 65-99 :27 LIPID PANEL (35949) Comments: PATIENT WAS FASTINGPERFORMED BY: [employer] Mruoxg4068 [facility] [id number] LDL/HDL Ratio 0.9 {ratio_units} (Normal) Range: 0.0-3.2 LDL Cholesterol Calc 29 mg/dL (Normal) Range: 0-99 VLDL Cholesterol Ramandeep 17 mg/dL (Normal) Range: 5-40 HDL Cholesterol 32 mg/dL (Abnormal) Comments: According to ATP-III Guidelines, HDL-C >59 mg/dL is considered anegative risk factor for CHD. Cholesterol, Total 78 mg/dL (Abnormal) Range: 100-199 Triglycerides 84 mg/dL (Normal) Range: 0-149 :27 TSH (07665) Comments: PATIENT WAS FASTINGPERFORMED BY: LabCoLour[facility] of Burlington CountySnzvxs2073 [facility] [id number] TSH 3.990 {uIU/mL} (Normal) Range: 0.450-4.500 :27 CBC WITH MANUAL DIFF Comments: PATIENT WAS FASTINGPERFORMED BY: LabCoLour[facility] of Burlington CountyWswems6671 [facility] [id number] Information: [id number] (91501) Immature Grans (Abs) 0.0 {x10E3/uL} Range: 0.0-0.1 [...] 9:39 Comments: Khanh ECLIA methodologyPerformed at: - LabCo[address] [id number] Director: Manuelito Mendez PhD, Phone: [phone] :[phone] CBCMD ANC 2.4 3/uL (Normal) Range: [...] CHOL 130 mg/dL (Normal) Comments: <200 mg/dL Ygbverdhh934-588 mg/dL Borderline>240 mg/dL High Risk :39 MIACRE tMICROCREAT 16.5 {mg/g_CRE} (Normal) MIALB 23.3 mg/L (Normal) CREU 141.0 mg/dL (Normal) :39 PT INR 1.1 (Normal) PTP 13.6 s (Normal) Range: 11.9-14.4 :39 PTT PTTP 29.5 s (Normal) Range: 24.1-36.2 :17 Rapid Flu (31935 x 2) Influenza A Ag neg (Normal) :29 HgA1C , Office (71014) HgA1C , Office 5.9 % (Normal) Range: 4.6 - 7.1 :53 FT3 2.9 pg/mL (Normal) Range: 2.18-3.98 :53 T4F 1.26 ng/dL (Normal) Range: 0.76-1.46 :53 TPO 8 {IU/mL} (Normal) Range: 0-34 Comments: Performed at: [facility] Lab[address] [id number] Director: Codi Robles MD, Phone: [phone] TSH 1.23 {uIU/mL} (Normal) Range: 0.358-3.74 :04 HgA1C , Office (62682) HgA1C , Office 5.8 % (Normal) Range: [...] CMP Comments: ORDERED TSH LIPID CMP CBCMD [facility] ORDERED VITD CMP CBCD GAP 8 (Normal) [...] LIPID Comments: ORDERED TSH LIPID CMP CBCMD [facility]ENTER[facility] ORDERED VITD CMP CBCD VLDL 21 mg/dL [...] (Normal) Comments: ORDERED TSH LIPID CMP CBCMD [facility] INSANEJACINDA ORDERED VITD CMP CBCD Range: 0.358-3.74 :26 VITD 44.8 ng/mL (Normal) Comments: ORDERED TSH LIPID CMP CBCMD KRAIGJOSE ENRIQUE ORDERED VITD CMP CBCD Range: 30.0-100.0 Comments: Vitamin D deficiency has been defined by the [place] ofMedicine and an Endocrine Society practice guideline as alevel of serum 25-OH vitamin D less than 20 ng/mL (1,2).The Endocrine Society went on to further define vitamin Dinsufficiency as a level between 21 and 29 ng/mL (2).1. IOM ([place] of Medicine). 2010. Dietary reference intakes for calcium and D. [place]: The National Academies Press.2. Sami MF, Sophie NC, Xiomara LARES, et al. Evaluation, treatment, and prevention of vitamin D deficiency: an Endocrine Society clinical practice guideline. JCEM. 2010; 96(7): 1911-30.Performed at: [address] [id number] Director: Codi Robles MD, Phone: [phone] 27-Jan-20128:02 BILAT SCRN DIGITAL & CAD Radiology [...] Signed GP/GP Professional Interpretat ion Provided By: [facility], , To consult with a radiologist regarding this report, please call our [id number] line @ Dicta dani on 01/27/12 0813 by Faustina KING,Stanislavranscribed on 01/27/12 0950 by ITS IMPORTSign by Faustina KING,Prashant on 01/27/12 0951 Sign by: Prashant Delgadillo MD 08-Waa-254647:24 HgA1C , Office (77186) HgA1C , Office 5.7 % (Normal) Range: 4.6 - 7.1 06-Sps-524452:24 Blood Glucose , Office (75544) Blood Glucose , Office 89 (Normal) 91-Fqi-193840:31 Urinalysis, Office (71107) UA - LEUKOCYTE ESTERASE Small (Normal) UA - NITRITE Positive (Normal) URINE UROBILINGN NITA TIMED Normal mg/dL (Normal) UA - PROTEIN 300 mg/dL (Normal) UA - PH 6.0 (Normal) UA - SPECIFIC GRAVITY 1.025 (Normal) UA - KETONES Small mg/dL (Normal) UA - BILIRUBIN Moderate (Normal) UA - GLUCOSE Negative (Normal) 04-Oct-20119:15 HgA1C , Office (07491) HgA1C , Office 6.8 % (Normal) Range: 4.6 - 7.1 04-Oct-20119:15 Blood Glucose , Office (66997) Blood Glucose , Office 162 (Normal) 55-Scw-028131:22 THYROID Radiology Report See Note (Normal) Comments: [...] CULTURE-NITA COL Comments: PATIENT NOT FASTINGPERFORMED BY: LabCoLourdes [facility] of Burlington CountyCovshf4791 [facility] [id number] Information: SRC:UR [id number] COUNT (03709) Antimicrobial MIHEAD (Normal) Comments: S = Susceptible; [...] pneumoniae (Normal) Urine Final report Culture,Comprehensive (Normal) 58-Iit-85373:32 Urinalysis, Office (58665) UA - LEUKOCYTE ESTERASE Moderate (Normal) URINE UROBILINGN NITA TIMED Normal mg/dL (Normal) UA - PROTEIN 100 mg/dL (Normal) UA - PH 6.0 (Normal) UA - BLOOD Hemolyzed Large (Normal) UA - SPECIFIC GRAVITY 1.025 (Normal) UA - KETONES Negative mg/dL (Normal) UA - BILIRUBIN Negative (Normal) UA - GLUCOSE Negative (Normal) :28 Blood Glucose , Office (33538) Blood Glucose , Office 223 (Normal) :10 Urinalysis, Office (88499) UA - BILIRUBIN Small (Normal) UA - BLOOD Hemolyzed Large (Normal) UA - GLUCOSE Small (Normal) Comments: 100 UA - KETONES Negative mg/dL (Normal) UA - LEUKOCYTE ESTERASE Trace (Normal) UA - NITRITE Positive (Normal) UA - PH 5.0 (Normal) UA - PROTEIN 300 mg/dL (Normal) UA - SPECIFIC GRAVITY 1.020 (Normal) URINE UROBILINGN NITA TIMED 2 mg/dL (Normal) 7-Xbw-924433:29 URINE GENESIS CULTURE-NITA COL Comments: PATIENT NOT FASTINGPERFORMED BY: [facility] Mrunco6600 Vines RoadDublin [place] [id number] Information: SRC:UR [id number] COUNT (35935) Antimicrobial MIHEAD (Normal) Comments: S = Susceptible; [...] mL (Normal) Urine Final report (Normal) Culture,Comprehensive 0-Ehy-815539:31 Urinalysis, Office (57291) UA - BILIRUBIN Large (Normal) UA - BLOOD Hemolyzed Moderate (Normal) UA - GLUCOSE Moderate (Normal) Comments: 250 mg/dL UA - KETONES Small mg/dL (Normal) Comments: 15mg/dL UA - LEUKOCYTE ESTERASE Large (Normal) UA - NITRITE Positive (Normal) UA - PH 5.0 (Normal) UA - PROTEIN 300 mg/dL (Normal) UA - SPECIFIC GRAVITY 1.015 (Normal) URINE UROBILINGN NITA TIMED 8 mg/dL (Normal) 27-Hiw-30187:28 CBCD,SMEAR DIFF RED CELL MORPH SeeNote {NORMAL} [...] (Abnormal) Range: 0.358-3.74 :28 HgA1C , Office (52389) HgA1C , Office 8.3 % (Abnormal) Range: 4.6 - 7.1 :28 Blood Glucose , Office (92619) Blood Glucose , Office 176 (Normal) :24 [...] 200-240 mg/dL Borderline >240 mg/dL High Risk 97-Npi-755922:54 BRAIN/HEAD W/WO CONTRAST Radiology See Note Comments: [...] on 10/14/10855 by Pattie Delgadillo MDeleTranscribed on 10/14/10 0856 by ITS IMPORTSign by Prashant Delgadillo MD on 02/09/11 1702 Sign by: Prashant Delgadillo MD :44 HgA1C , Office (50424) HgA1C , Office 7.4 % (Abnormal) Range: 4.6 - 7.1 :44 Blood Glucose , Office (34590) Blood Glucose , Office 206 (Normal) :37 [...] Report See Note (Normal) Comments: Exam Number: [id number] AMMOGRAPHY - BILATERAL SCREENING INDICATION:Routine annual screening [...] attaching a ResultCode to this exam. ADDENDUM: [id number] HPBI/MDS Reported By: PRASHANT DELGADILLO :14 HgA1C , Office (20160) HgA1C , Office 7.0 % (Normal) Range: 4.6 - 7.1 :14 Blood Glucose , Office (80186) Blood Glucose , Office 164 (Normal) :30 LASHA DIR SEMI-QL LASHA DIRECT 24 AU/mL (Normal) :30 ANTI-dsDNA AB 10 {IU/mL} (Normal) :30 TSH 6.39 {uIU/mL} (Abnormal) Range: 0.358-3.74 24-Gol-050293:35 C-REACTIVE PROTEIN (31762) Comments: PATIENT NOT FASTINGPERFORMED BY: [facility]la[facility] Hospital6370 [facility] [id number] C-Reactive Protein, Quant 6.5 mg/L (Abnormal) Range: 0.0-4.9 :35 SED RATE ERYTHROCYTE (77123) Comments: PATIENT NOT FASTINGPERFORMED BY: [facility]6370 [facility] [id number] Sedimentation Rate-Westergren 14 mm/h (Normal) Range: 0-20 :35 RHEUMATOID FACTOR-QUANT (41370) Comments: PATIENT NOT FASTINGPERFORMED BY: [facility]6370 [facility] [id number] RA Latex Turbid. 7.6 {IU/mL} (Normal) Range: 0.0-13.9 :35 LASHA (ANTINUCLEAR ANTIBODY) Comments: PATIENT NOT FASTINGPERFORMED BY: [facility]6370 [facility] [id number] (19651) LASHA Direct Positive (Abnormal) 24-Ssy-590935:35 T3, FREE (TRIDOTHYRONINE) (21043) Comments: PATIENT NOT FASTINGPERFORMED BY: [facility] Evxxvf6006 [address] [facility] [id number] Triiodothyronine,Free,Serum 2.8 pg/mL (Normal) Range: 2.0-4.4 :35 T4, FREE (THYROXINE) (48801) Comments: PATIENT NOT FASTINGPERFORMED BY: [facility] Rtifbi9937 [address] [facility] [id number] T4,Free(Direct) 0.76 ng/dL (Abnormal) Range: 0.82-1.77 :35 Anti-TPO Antibody (51203) Comments: PATIENT NOT FASTINGPERFORMED BY: SessionMOaklawn Hospital6370 [facility] [id number] Thyroid Peroxidase (TPO) Ab <6 {IU/mL} (Normal) Range: 0-34 :35 TSH (24633) Comments: PATIENT NOT FASTINGPERFORMED BY: [place] 1052770 [facility] [id number] TSH 5.630 {uIU/mL} (Abnormal) Range: 0.450-4.500 Comments: Please note reference interval change :35 METABOLIC PANEL, Comments: PATIENT NOT FASTINGPERFORMED BY: SessionMAdrienne [place]ille 5003470 [facility] [id number] Information: [id number] COMPREHENSIVE (85076) ALT (SGPT) 55 [iU]/L (Abnormal) Range: 0-40 [...] Glucose, Serum 151 mg/dL (Abnormal) Range: 65-99 20-Sek-710804:02 GENESIS CULTURE-OTHER (47336) Comments: PATIENT NOT FASTINGPERFORMED BY: [facility] Pntglg0666 [facility] [id number] Information: SRC:THRT [id number] Result 1 Yeast isolated. (Normal) Comments: Moderate growthRequest for further identification must be madewithin 1 week. Upper Respiratory Culture Final report (Normal) 76-Kua-27985:37 Rapid Strep Test, Office (04772) Rapid Strep Test, Office Negative (Normal) 56-Blw-672151:11 THYROID (HP) Radiology Report See Note (Normal) Comments: Exam Number: [id number] CLINICAL:This is a 45-year-old female patient with [...] the right lobe. Reported By: PRASHANT DELGADILLO 81-Tyg-32236:41 COMP METABOLIC CL 100 mmol/L (Normal) Range: [...] CHOL 147 mg/dL (Normal) Comments: <200 mg/dL Tyfeolixn389-121 mg/dL Borderline>240 mg/dL High Risk HDL 32 [...] :41 TSH 4.85 {uIU/mL} (Abnormal) Range: 0.358-3.74 32-Qsw-377581:50 URINE GENESIS CULTURE-NITA COL Comments: PATIENT NOT FASTINGPERFORMED BY: REINALDO [facility] Stfeec5087 [address] [place] [id number] Information: SRC:INGRID ADD [id number] COUNT (00477) Result 1 Klebsiella pneumoniae Comments: 1,000 Colonies/mL [...] STrimethoprim/Sulfa S Urine Final report (Normal) Culture,Comprehensive 39-Vxq-95404:55 Urinalysis, Office (37641) UA - LEUKOCYTE ESTERASE Small (Normal) UA - NITRITE Negative (Normal) URINE UROBILINGN NITA TIMED Normal mg/dL (Normal) UA - PROTEIN 30 mg/dL (Normal) UA - PH 6.0 (Normal) UA - BLOOD Negative (Normal) UA - SPECIFIC GRAVITY 1.020 (Normal) UA - KETONES Negative mg/dL (Normal) UA - BILIRUBIN Negative (Normal) UA - GLUCOSE Negative (Normal) 3-Dvw-101045:37 PET/CT,TUMOR,BASE-THIGH,SUBS Radiology Report See Note (Normal) Comments: Exam Number: [id number] EXAM: Body PET study Head to Mid [...] 44:398P, 2003). w Reported By: ADELA MOLINA 6-Bpz-858256:00 PRANEETH+ELPU24 3467 ALBUMIN,U 37.7 % (Normal) MZOIP-4-JGWS,U 3.2 % (Normal) TRBRE-5-HYWE,U 7.6 % (Normal) BETA GLOB,U 23.1 % (Normal) GAMMA GLOB,U 28.5 % (Normal) PRANEETH RESULT,U Comment (Normal) Comments: No monoclonality detected. M-SPIKE,UR% SeeNote % (Normal) Comments: Result: Not Observed PROTEIN, U24 62.1 {mg/24_hr} Range: 30.0-150.0 (Normal) PROTEIN,UR 2.3 mg/dL (Normal) Range: 0.0-15.0 1-Oxy-635280:15 C-REACTIVE PROT < 2.90 mg/L (Normal) Range: [...] <126 mg/dLsuggests IMPAIRED HOMEOSTASIS per A.D.A. criteria. 8-Klj-987601:15 ESR SED RATE 11 mm/h (Normal) Range: 0-20 3-Fod-153208:15 LDH 197 U/L (Abnormal) Range: 100-190 0-Hgq-301730:15 LIPID HDL 30 mg/dL (Abnormal) Comments: Reference [...] CHOL 154 mg/dL (Normal) Comments: <200 mg/dL Wshfczbgs496-098 mg/dL Borderline>240 mg/dL High Risk 7-Som-970518:15 PROT.[id number] NOTE Comment (Normal) Comments: Protein electrophoresis scan will follow via computer,mail, or career development facilitator delivery.Performed at: [address] [id number] Director: Kamlesh Arana MD ALBUMIN,UR 54.2 % (Normal) OQCEW-1-GMGZ,U 1.2 % (Normal) FOPUU-1-FTVX,U 9.4 % (Normal) BETA GLOB,U 23.4 % (Normal) GAMMA GLOB,U 11.8 % (Normal) M-SPIKE,U SeeNote % (Normal) Comments: Result: Not Observed PROTEIN,UR 13.6 mg/dL (Normal) Range: 0.0-15.0 1-Zup-611000:15 SPE [id number] A/G RATIO 1.8 (Normal) Range: 0.7-2.0 GLOBULIN, [...] electrophoresis scan will follow via computer,mail, or career development facilitator delivery. M-SPIKE SeeNote g/dL (Normal) Comments: Result: Not Observed GAMMA GLOBULIN 0.4 g/dL (Abnormal) Range: 0.5-1.6 ALBUMIN 3.9 g/dL (Normal) Range: 3.2-5.6 ALPHA-1 GLOBUL 0.2 g/dL (Normal) Range: 0.1-0.4 ALPHA-2 GLOBUL 0.7 g/dL (Normal) Range: 0.4-1.2 BETA GLOBULIN 0.9 g/dL (Normal) Range: 0.6-1.3 PROTEIN,TOTAL 6.1 g/dL (Normal) Range: 6.0-8.5 64-Teo-573029:28 BRAIN/HEAD WITHOUT CONTRAST Radiology Report See Note (Normal) Comments: Exam Number: [id number] CT SCAN OF BRAIN HISTORYLytic lesion, lymphoma. [...] for confirmation. Reported By: TRUE NAGEL M.D. 83-Xxf-472034:23 SPINE,CERVICAL WITHOUT CONTRAS Radiology Report See Note (Normal) Comments: Exam Number: [id number] CLINICAL:44 year old female with cervical radiculopathy. [...] tumor involvement. Reported By: SHARYN JASMINE M.D. 19-Anf-269243:50 Blood Glucose , Office (29017) Blood Glucose , Office 105 (Normal) 19-Ygf-481547:50 HgA1C , Office (56504) HgA1C , Office 6.1 % (Normal) Range: 4.6 - 7.1 50-Eln-840382:24 URINE GENESIS CULTURE-NITA COL Comments: PATIENT NOT FASTINGPERFORMED BY: [facility] [id number] [facility] [id number] Information: SRC:UR [id number] COUNT (47370) Antimicrobial MIHEAD (Normal) Comments: S = Susceptible; [...] mL (Normal) Urine Final report (Normal) Culture,Comprehensive 14-Bsg-938820:41 Urinalysis, Office (04487) UA - LEUKOCYTE ESTERASE Large (Normal) UA - NITRITE Negative (Normal) URINE UROBILINGN NITA TIMED Normal mg/dL (Normal) UA - PROTEIN 100 mg/dL (Normal) UA - PH 5.0 (Normal) UA - BLOOD Hemolyzed Large (Normal) UA - SPECIFIC GRAVITY 1.025 (Normal) UA - KETONES Negative mg/dL (Normal) UA - BILIRUBIN Negative (Normal) UA - GLUCOSE Negative (Normal) 7-Jjl-399425:19 BLOOD GAS, O2 SAT ONLY - INITL Radiology Report See Note (Normal) Comments: Exam Number: [id number] Procedure completed. Please see MEDICAL RECORDS reports in PCI - OP - OP NOTE LET - LETTER. Reported By: BOONE CH M.D. 0-Mzw-039311:19 BLOOD GAS, O2 SAT ONLY - SUBSQ Radiology Report See Note (Normal) Comments: Exam Number: [id number] Procedure completed. Please see MEDICAL RECORDS reports in PCI - OP - OP NOTE LET - LETTER. Reported By: BOONE CH M.D. 0-Kud-804016:19 BLOOD GAS, O2 SAT ONLY - SUBSQ Radiology Report See Note (Normal) Comments: Exam Number: [id number] Procedure completed. Please see MEDICAL RECORDS reports in PCI - OP - OP NOTE LET - LETTER. Reported By: BOONE CH M.D. :44 RHC/LHC/CORS/LV Radiology Report See Note (Normal) Comments: Exam Number: [id number] Procedure completed. Please see MEDICAL RECORDS reports [...] MIXED GRAM POSITIVE ORGANISMS :58 Urinalysis, Office (91622) UA - BILIRUBIN Negative (Normal) UA - BLOOD Negative (Normal) UA - GLUCOSE Negative (Normal) UA - KETONES Negative mg/dL (Normal) UA - LEUKOCYTE ESTERASE Small (Normal) Comments: aw UA - NITRITE Negative (Normal) UA - PH 6.0 (Normal) UA - PROTEIN Negative mg/dL (Normal) UA - SPECIFIC GRAVITY 1.010 (Normal) URINE UROBILINGN NITA TIMED Normal mg/dL (Normal) :53 HgA1C , Office (16198) HgA1C , Office 5.7 % (Normal) Range: 4.6 - 7.1 :53 Blood Glucose , Office (86532) Blood Glucose , Office 133 (Normal) :24 [...] (Normal) Range: 6.4-8.2 :53 HgA1C , Office (24951) HgA1C , Office 10.0 % (Abnormal) Range: 4.6 - 7.1 :53 Blood Glucose , Office (73493) Blood Glucose , Office 410 (Normal) :46 [...] mg/dL VLDL 49 mg/dL (Abnormal) Range: 5-40 8-Xgo-384713:46 MICROALB:CRE UR MALB:CREAT 33.3 {mg/g_CRE} (Abnormal) MICROALBUMIN,UR 62.2 mg/L (Normal) UR CREAT 186.7 mg/dL (Normal) 53-Mhx-891291:11 LIPID Comments: PATIENT NOT FASTING/DEMANDED TO BE [...] mg/dL VLDL 31 mg/dL (Normal) Range: 5-40 63-Xrz-826566:11 LIVER Comments: PATIENT NOT FASTING/DEMANDED TO BE DRAWN ALT 43 U/L (Normal) Range: 30-65 D BILI 0.07 mg/dL (Normal) Range: 0.00-0.30 T BILI 0.35 mg/dL (Normal) Range: 0.00-1.00 ALB 3.4 g/dL (Normal) Range: 3.4-5.0 ALK P 210 U/L (Abnormal) Range: 50-136 AST 27 U/L (Normal) Range: 15-37 T PROT 6.4 g/dL (Normal) Range: 6.4-8.2 94-Qux-335843:23 Urinalysis, Office (86571) Comments: done BC UA - BILIRUBIN Negative (Normal) UA - BLOOD Hemolyzed Large (Normal) UA - GLUCOSE Large (Normal) Comments: > 1000mg/dL UA - KETONES Negative mg/dL (Normal) UA - LEUKOCYTE ESTERASE Moderate (Normal) UA - NITRITE Negative (Normal) UA - PH 6.0 (Normal) UA - PROTEIN 30 mg/dL (Normal) UA - SPECIFIC GRAVITY 1.010 (Normal) URINE UROBILINGN NITA TIMED Normal mg/dL (Normal) 75-Cpy-998718:44 MYOCARD PERF SPECT REST/STRESS Radiology Report See Note (Normal) Comments: Exam Number: [id number] MYOCARDIAL PERFUSION SCAN TECHNIQUEThe patient was injected [...] of 37%. Reported By: NOE MORRIS M.D. 14-Yxw-13485:39 SPINE, LUMBAR W/W/O CONTRAST Radiology Report See Note (Normal) Comments: Exam Number: [id number] MAGNETIC RESONANCE IMAGING OF THE LUMBAR SPINE [...] other abnormality. Reported By: SUSAN GOMEZ M.D. 81-Zpw-446127:04 CULTURE, URINE URINE CULTURE See Note {CFU/mL} (Normal) Comments: COLONY COUNT 25,000-50,000 ORGANISM 1: MIXED GRAM POSITIVE ORGANISMS 92-Ptn-508896:15 Urinalysis, Office (23315) UA - LEUKOCYTE ESTERASE Small (Normal) Comments: aw UA - NITRITE Negative (Normal) UA - PH 5.0 (Normal) UA - PROTEIN Negative mg/dL (Normal) URINE UROBILINGN NITA TIMED Normal mg/dL (Normal) UA - BILIRUBIN Negative (Normal) UA - BLOOD Negative (Normal) UA - GLUCOSE Negative (Normal) UA - KETONES Negative mg/dL (Normal) UA - SPECIFIC GRAVITY 1.025 (Normal) 94-Alv-900717:09 Blood Glucose , Office (60148) Blood Glucose , Office 231 (Normal) 94-Tou-729590:09 HgA1C , Office (14370) HgA1C , Office 7.1 % (Normal) Range: 4.6 - 7.1 44-Ydd-376902:42 CBCD,SMEAR DIFF CELLS COUNTED 100 (Normal) HCT [...] 47-70 WBC 4.3 K/mm3 (Abnormal) Range: 4.4-11.0 45-Ptx-537126:42 COMP METABOLIC A/G 1.2 {RATIO} (Normal) Range: [...] for patient's is the eGFRmultiplied by 1.212. [facility] Laboratory uses the abbreviated Modification of Diet [...] Disease W/O Kidney Disease>/= 90 Stage One Xnbpoc17 - 89 Stage Two Suspect Decreased GFR30 [...] T PROT 6.5 g/dL (Normal) Range: 6.4-8.2 78-Rab-361687:42 LIPID CHOL 182 mg/dL (Normal) Comments: <200 [...] mg/dL VLDL 36 mg/dL (Normal) Range: 5-40 01-Azq-659673:42 MICROALB:CRE UR MALB:CREAT 35.4 {mg/g_CRE} (Abnormal) MICROALBUMIN,UR 54.7 mg/L (Normal) UR CREAT 154.6 mg/dL (Normal) 70-Eah-722309:42 TSH 2.57 {uIU/mL} (Normal) Range: 0.34-4.82 28-Umq-280682:40 CULTURE, URINE URINE CULTURE See Note {CFU/mL} (Normal) Comments: COLONY COUNT 1000-10,000 ORGANISM 1: MIXED GRAM POS & NEG ORGANISMS :36 Urinalysis, Office (89121) UA - BILIRUBIN Negative (Normal) UA - BLOOD Non Hemolyzed Trace (Normal) UA - KETONES Negative mg/dL (Normal) UA - LEUKOCYTE ESTERASE Moderate (Normal) UA - NITRITE Negative (Normal) UA - PH 5.0 (Normal) UA - PROTEIN Negative mg/dL (Normal) UA - SPECIFIC GRAVITY 1.015 (Normal) URINE UROBILINGN NITA TIMED Normal mg/dL (Normal) UA - GLUCOSE Negative (Normal) 27-Uqx-011802:20 CULTURE, URINE URINE CULTURE See Note {CFU/mL} (Normal) Comments: COLONY COUNT 25,000-50,000 ORGANISM 1: MIXED GRAM POS & NEG ORGANISMS 61-Ghz-770608:12 Urinalysis, Office (89446) UA - BILIRUBIN Negative (Normal) UA - [...] Range: 0.34-4.82 :28 Blood Glucose , Office (02714) Blood Glucose , Office 124 (Normal) :28 HgA1C , Office (36732) HgA1C , Office 6.1 % (Normal) Range: 4.6 - 7.1 :38 CERULOPLAS 1560 21.3 mg/dL (Normal) Range: 17.9-53.3 Comments: Performed At: [address] [id number] :38 FERRITIN 189 ng/mL (Normal) Range: 8-252 :38 HEP-ABC [id number] HB CORE [id number] SeeNote (Normal) Comments: Result: Negative HB SURF [...] as: RIBA RESULT <TEST NOT PERFORMED> (Normal) 53-Wsa-094967:38 LIVER ALB 3.5 g/dL (Normal) Range: 3.4-5.0 ALK P 162 U/L (Abnormal) Range: 50-136 ALT 50 U/L (Normal) Range: 30-65 AST 21 U/L (Normal) Range: 15-37 D BILI 0.05 mg/dL (Normal) Range: 0.00-0.30 T BILI 0.38 mg/dL (Normal) Range: 0.00-1.00 T PROT 6.5 g/dL (Normal) Range: 6.4-8.2 52-Amk-342797:38 MITOCHN AB 6650 <20.0 {Units} (Normal) Range: [...] T PROT 6.5 g/dL (Normal) Range: 6.4-8.2 0-Exk-266530:02 THYROID () Radiology Report See Note (Normal) Comments: Exam Number: [id number] THYROID ULTRASOUND HISTORYThyromegaly. High-resolution, real-time linear images [...] is recommended. Reported By: TRUE NAGEL M.D. 53-Jjn-873353:05 Blood Glucose , Office (99891) Blood Glucose , Office 135 (Normal) 39-Gwz-501904:05 HgA1C , Office (56190) HgA1C , Office 5.6 % (Normal) Range: 4.6 - 7.1 24-Pee-35623:02 CBCD,SMEAR DIFF ANISO 1+ (Normal) CELLS COUNTED [...] Report See Note (Normal) Comments: Exam Number: [id number] CT BRAIN WITHOUT AND WITH INTRAVENOUS CONTRAST [...] clinically warranted. Reported By: AIDAN MASON M.D. 86-Tsz-077301:30 CBCD Comments: CALL [phone] TO [phone] BASO% 0.8 % (Normal) Range: 0-1 EO% [...] Range: 4.4-11.0 :30 COMP METABOLIC Comments: CALL [phone] TO [phone] A/G 1.5 {RATIO} (Normal) Range: 0.9-2.4 ALB [...] :30 LDH 206 U/L (Abnormal) Comments: CALL [phone] TO [phone] Range: 100-190 :30 URIC 5.7 mg/dL (Normal) Comments: CALL [phone] TO [phone] Range: 2.6-6.0 :30 CULT, DP WOUND Comments: [...] mg/dL (Abnormal) Range: 40-230 Comments: Performed At: [facility] [id number] [place], [place] [id number] :41 LDH 211 U/L (Abnormal) Range: 100-190 [...] 30-39 T7 (FTI) 2.5 (Normal) Range: 1.4-4.5 : T4 THYROXIN 8.1 ug/dL (Normal) Comments: COMMENTS: [...] 47-70 WBC 23.9 K/mm3 (Abnormal) Range: 4.4-11.0 84-Itz-07793:30 AFB C&S [id number] Comments: Precautions*: CHEMO PRECAUTIONSSPECIMEN DESCRIPTION: #2 SAME SOURCE AFB CULT See Note Comments: TESTING PERFORMED AT [facility]. ORIGINAL REPORT ON FILE IN LAB CONTAINS ADDITIONAL TEST SITE INFORMATION. (Normal) CULTURE, ACID FAST NO ACID-FAST BACILLI ISOLATED AFTER 6 WEEKS. AFB SMEAR See Note Comments: [facility] ORIGINAL REPORT ON FILE IN LAB CONTAINS ADDITIONAL TEST SITE INFORMATION. (Normal) ACID FAST BACILLUS SMEAR NO ACID-FAST BACILLI OBSERVED ON SMEAR. 13-D CULT,ALFREDITO See Note Comments: Precautions*: CHEMO PRECAUTIONSSPECIMEN DESCRIPTION: #1 SAME SOURCE ec-2 8482 (Normal) Comments: ` TESTING PERFORMED AT [facility]. ORIGINAL REPORT ON FILE IN LAB CONTAINS ADDITIONAL TEST SITE INFORMATION. 0069 CULTURE, FUNGUS NO YEAST OR MOLD ISOLATED AFTER 4 WEEKS. :30 13-D CYTOLOGY, SeeNote Comments: Result: SEE PATHOLOGY REPORT Specimen submitted to Anatomical Pathology Department for testing. ec-2 BF/CSF (Normal) 0069 :30 :30 FLUID P-FLU (Normal) Comments: OPERATION Not noted HISTORY Lymphoma PRE-OPERATIVE DIAGNOSIS Pain injection lower back TISSUE SUBMITTED CSF for cytology DIAGNOSIS (CYTOLOGY) Cerebrospinal fluid (cytospins and cell block): Negat scott for malignant cells. SJ:luna 09/08/06 CYTOLOGY STUDY The specimen is bloody. CYTOLOGY GROSS Received is 2.5 ml of red cloudy fluid designated CSF. Submitted for cytology study. / SJ:ch 1 11/08/05 TC:5 ADDENDUM Comment: Sections of [...] 47-70 WBC 3.9 K/mm3 (Abnormal) Range: 4.4-11.0 00-Rwf-08866:25 COMP METABOLIC A/G 1.4 {RATIO} (Normal) Range: [...] DRAWN 07/22/06-TEST MISSED Range: 100-190 :51 SPE [id number] A/G RATIO 1.3 (Normal) Range: 0.7-2.0 ALBUMIN [...] protein is not apparent.Performed At: [facility] [place], [place] [id number] M-SPIKE SeeNote (Normal) Comments: Result: Not Observed NOTE: Comment (Normal) Comments: Protein electrophoresis scan will follow via mail orcourier. PROTEIN,TOTAL 6.5 g/dL (Normal) Range: 6.0-8.5 :49 Blood Glucose , Office (13092) Blood Glucose , Office 84 (Normal) :49 HgA1C , Office (73958) HgA1C , Office 6.6 % (Normal) Range: 4.6 - 7.1 Plan of Care Name Dates Details Instructions CHF (congestive heart failure) : Eprescribed prescriptions (G8553) Indication: CHF (congestive heart failure) SOB (shortness of breath) : Eprescribed prescriptions [...] eye, right : Follow up tomorrow with [facility] Indication: Pain, eye, right Need for [...] Paroxysmal tachycardia Planned Observations METABOLIC PANEL, BASIC (92121)Indication: CHF (congestive heart failure) On: 94-Wdg-086212:05 Request CPK MB FRACTION (94995)Indication: SOB (shortness of breath) On: 92-Ohj-605259:21 Request Comments: stat ASSAY, TROPONIN, QUANTITATIVE (aka Troponin I) (78287)Indication: SOB (shortness of breath) On: 41-Qjn-837475:21 Request Comments: stat CBC W/AUTO DIFF WBC (31630)Indication: SOB (shortness of breath) On: 49-Vzg-571521:08 Request Comments: stat METABOLIC PANEL, COMPREHENSIVE (89364)Indication: SOB (shortness of breath) On: :08 Request Comments: stat D-Dimer (95827)Indication: SOB (shortness of breath) On: :08 Request Comments: stat BNTP (66434)Indication: SOB (shortness of breath) On: :08 Request Comments: stat CBC with auto diff (52053)Indication: Diabetes mellitus type II, controlled On: :03 Request LIPID PANEL (65760)Indication: Diabetes mellitus type II, controlled On: :03 Request METABOLIC PANEL, COMPREHENSIVE (15427)Indication: Diabetes mellitus type II, controlled On: : Request HGB A1C (12801)Indication: Diabetes mellitus type II, controlled On: :02 Request TSH (THYROID STIMULATING HORMONE) (34567)Indication: Acquired hypothyroidism On: : Request Metabolic Panel, Basic (08691)Indication: Hyponatremia On: 76-Egf-277704:00 Request TSH (75418)Indication: Diabetes mellitus type II, controlled On: :48 Request Vitamin B-12 (cyanocobalamin) (17617)Indication: B12 deficiency On: :45 Request CBC WITH MANUAL DIFF (06098)Indication: B12 deficiency On: :45 Request T3, FREE (TRIDOTHYRONINE) (93911)Indication: Thyroid nodule On: :48 Request Comments: add to labs already drawn T4, FREE (THYROXINE) (33036)Indication: Thyroid nodule On: :47 Request Comments: add to labs already drawn Digoxin (24063)Indication: Cardiomyopathy On: :44 Request LIPID PANEL (89441)Indication: Mixed hyperlipidemia On: :43 Request TSH (49421)Indication: Acquired hypothyroidism On: :43 Request Vitamin D Hydroxy (87443)Indication: Vitamin D deficiency On: :43 Request QXPUN-XAWWVCMIJPM-GALBH (34006)Indication: Fatty liver On: 10-Zch-110910:42 Request VITAMIN B-12 (CYANOCOBALAMIN) (94141)Indication: Fatigue On: 45-Fou-362839:42 Request URINALYSIS, W/ MICRO (92820)Indication: Diabetes mellitus type II, controlled On: 63-Gpu-307073:30 Request MICROALBUMIN: CREATININE RATIO (17636) AND (37343)Indication: Diabetes mellitus type II, controlled On: :29 Request CBC with auto diff (25611)Indication: Diabetes mellitus type II, controlled On: 26-Nqu-868961:29 Request METABOLIC PANEL, COMPREHENSIVE (93834)Indication: Diabetes mellitus type II, controlled On: : Request HGB A1C (39078)Indication: Diabetes mellitus type II, controlled On: :29 Request HEPATIC FUNCTION PANEL (21284)Indication: Elevated liver enzymes On: 2-Fnv-825959:38 Request Comments: do in hospital tuesday when get US Metabolic Panel, Comprehensive (67606)Indication: Epigastric pain On: 26-Xcg-132065:54 Request Sed Rate Erythrocyte (37194)Indication: Epigastric pain On: 18-Fhb-375406:54 Request CBC, Platelets & Auto Diff (11991)Indication: Epigastric pain On: 77-Giu-875968:54 Request OVA & PARASITE DIR SMEAR (98827)Indication: Diarrhea On: 59-Hwb-685319:53 Request OCCULT BLOOD FECES SCREEN (22973)Indication: Diarrhea On: 07-Gis-659226:53 Request LEUKOCYTE COUNT, FECAL (59436)Indication: Diarrhea On: 50-Kme-701257:53 Request C-DIFFICILE, STOOL (82312)Indication: Diarrhea On: 57-Oya-275066:53 Request GENESIS CULTURE-STOOL (81516)Indication: Diarrhea On: 99-Xaz-620558:53 Request Magnesium (14514)Indication: Fatigue On: 75-Bcb-564645:42 Request Vitamin B-12 (cyanocobalamin) (22686)Indication: Fatigue On: 55-Oba-387491:41 Request MICROALBUMIN: CREATININE RATIO (59456) AND (78744)Indication: Diabetes mellitus type II, controlled On: 97-Aia-279023:40 Request LIPID PANEL (27779)Indication: Mixed hyperlipidemia On: :39 Request CBC W/AUTO DIFF WBC (91305)Indication: Fatty liver On: :30 Request METABOLIC PANEL, COMPREHENSIVE (64134)Indication: Fatty liver On: :30 Request Vitamin D Hydroxy (98556)Indication: Vitamin D deficiency On: :30 Request TSH (68489)Indication: Acquired hypothyroidism On: : Request Digoxin (61448)Indication: Cardiomyopathy On: :29 Request LIPASE (80716)Indication: Epigastric pain On: : Request AMYLASE (56430)Indication: Epigastric pain On: : Request URINE GENESIS CULTURE-IDENTIFICATN (41460)Indication: Leukocytes in urine On: 54-Ynh-164105:38 Request MICROALBUMIN: CREATININE RATIO (68671) AND (53477)Indication: Essential hypertension with goal blood pressure less than 130/80 On: :58 Request CBC W/AUTO DIFF WBC (43966)Indication: Essential hypertension with goal blood pressure less than 130/80 On: :58 Request METABOLIC PANEL, COMPREHENSIVE (59537)Indication: Essential hypertension with goal blood pressure less than 130/80 On: :58 Request DVPJM-SRJEUUIVDTC-FKWGR (59027)Indication: Abnormal tumor markers On: :57 Request Vitamin D Hydroxy (61834)Indication: Vitamin D deficiency On: :09 Request LIPOPROTEIN, BLD, BY NMR (54159)Indication: Mixed hyperlipidemia On: :09 Request CBC W/AUTO DIFF WBC (17800)Indication: Diabetes mellitus type II, controlled On: :09 Request METABOLIC PANEL, COMPREHENSIVE (61598)Indication: Diabetes mellitus type II, controlled On: :09 Request Potassium Serum (35147)Indication: Hypopotassemia On: 77-Swz-919112:02 Request GZQDS-MTPBFAHXOJC-RCHBE (32317)Indication: Fatty liver On: :57 Request MICROALBUMIN: CREATININE RATIO (34103) AND (25908)Indication: Essential hypertension with goal blood pressure less than 130/80 On: Request CBC W/AUTO DIFF WBC (29944)Indication: Essential hypertension with goal blood pressure less than 130/80 On: Request METABOLIC PANEL, COMPREHENSIVE (73644)Indication: Essential hypertension with goal blood pressure less than 130/80 On: Request Vitamin D Hydroxy (41941)Indication: Vitamin D deficiency On: Request TSH (44041)Indication: Acquired hypothyroidism On: Request LIPID PANEL (68923)Indication: Mixed hyperlipidemia On: Request CBC W/AUTO DIFF WBC (52768)Indication: Diabetes mellitus type II, controlled On: :28 Request LWZKD-BHYKWRUUWPQ-CMTFP (45433)Indication: Fatty liver On: : Request METABOLIC PANEL, COMPREHENSIVE (12514)Indication: Mixed hyperlipidemia On: :55 Request LIPOPROTEIN, BLD, BY NMR (90122)Indication: Mixed hyperlipidemia On: :55 Request Metabolic Panel, Basic (21957)Indication: Hypopotassemia On: :55 Request Comments: 10 days CBC (AUTO) (54143)Indication: Uncontrolled type II diabetes mellitus On: :03 Request Vitamin D Hydroxy (51228)Indication: Vitamin D deficiency On: 39-Cit-863666:03 Request MICROALBUMIN: CREATININE RATIO (32634) AND (63641)Indication: Uncontrolled type II diabetes mellitus On: :02 Request METABOLIC PANEL, COMPREHENSIVE (38409)Indication: Essential hypertension with goal blood pressure less than 130/80 On: : Request DMSFD-NUHCKIKNVXA-ASTNP (98663)Indication: Fatty liver On: : Request LIPID PANEL (78490)Indication: Mixed hyperlipidemia On: : Request TSH (29140)Indication: Thyroid nodule On: : Request CBC W/AUTO DIFF WBC (39619)Indication: Uncontrolled type II diabetes mellitus On: :47 Request METABOLIC PANEL, COMPREHENSIVE (20565)Indication: Uncontrolled type II diabetes mellitus On: :47 Request LIPID PANEL (90285)Indication: Mixed hyperlipidemia On: :47 Request Vitamin D Hydroxy (37348)Indication: Vitamin D deficiency On: :47 Request FLOFE-NBGBOIADGSR-NWEVC (70454)Indication: Fatty liver On: : Request CBC W/AUTO DIFF WBC (28786)Indication: Uncontrolled type II diabetes mellitus On: :26 Request LIPID PANEL (49603)Indication: Mixed hyperlipidemia On: : Request MICROALBUMIN: CREATININE RATIO (75205) AND (17613)Indication: Uncontrolled type II diabetes mellitus On: : Request TSH (04198)Indication: Acquired hypothyroidism On: : Request METABOLIC PANEL, COMPREHENSIVE (58801)Indication: Essential hypertension with goal blood pressure less than 130/80 On: : Request Vitamin D Hydroxy (08410)Indication: Vitamin D deficiency On: : Request CALCIFEDIOL (03620)Indication: Vitamin D deficiency On: 23-Mnu-239281:44 Request Comments: to be done Jun 2015 after done with ergocalciferol URINE GENESIS CULTURE (NITA COL COUNT) (89308)Indication: UTI (lower urinary tract infection) On: 1-Cjj-146206:22 Request LIPID PANEL (30874)Indication: Mixed hyperlipidemia On: :15 Request CBC W/AUTO DIFF WBC (87481)Indication: Uncontrolled type II diabetes mellitus On: 1-Iri-711092:14 Request METABOLIC PANEL, COMPREHENSIVE (07114)Indication: Uncontrolled type II diabetes mellitus On: 3-Gwj-617243:14 Request TSH (87334)Indication: Acquired hypothyroidism On: 2-Haj-216269:14 Request DZWPB-MHJJIRWWLDU-MHBKK (46343)Indication: Fatty liver On: 0-Vih-541351:14 Request CBC, Platelets & Auto Diff (02288)Indication: HX, PERSONAL, MALIGNANCY, LYMPHATIC NEC On: :07 Request CBC WITH MANUAL DIFF (28214)Indication: Abnormal glucose tolerance test On: :33 Request MICROALBUMIN: CREATININE RATIO (76140) AND (26650)Indication: Abnormal glucose tolerance test On: :33 Request LIPID PANEL (50284)Indication: Mixed hyperlipidemia On: :31 Request METABOLIC PANEL, COMPREHENSIVE (41544)Indication: Abnormal glucose tolerance test On: :31 Request URINE GENESIS CULTURE-NITA COL COUNT (37036)Indication: Dysuria On: 75-Wet-873909:03 Request RETICULOCYTE COUNT (58306)Indication: Anemia On: :37 Request Iron (33083)Indication: Anemia On: :37 Request Ferritin (77299)Indication: Anemia On: :37 Request CBC (Auto) (99565)Indication: Anemia On: :37 Request CBC, Platelets & Auto Diff (21486)Indication: Fever On: :03 Request Metabolic Panel, Comprehensive (34675)Indication: Fever On: :03 Request HgA1C , Office (71001)Indication: Abnormal glucose tolerance test On: :55 Request CBC WITH MANUAL DIFF (82997)Indication: Abnormal glucose tolerance test On: 75-Kfk-851024:53 Request METABOLIC PANEL, COMPREHENSIVE (50273)Indication: Abnormal glucose tolerance test On: 75-Lbt-183429:53 Request LIPID PANEL ([id number])Indication: Mixed hyperlipidemia On: :53 Request SFQTU-QHRGEFFEXYL-LVETA ([id number])Indication: Fatty liver On: 77-Wim-750207:53 Request PTT (Activated Partial Thromboplastin Time) ([id number])Indication: Fatty liver On: :53 Request PT (Prothrobim Time) ([id number])Indication: Fatty liver On: :53 Request MICROALBUMIN: CREATININE RATIO (59759) AND (28048)Indication: Abnormal glucose tolerance test On: 19-Dbt-451130:49 Request Anti-TPO Antibody (46579)Indication: Acquired hypothyroidism On: 15-Lxm-266520:14 Request Comments: 1 month TSH ([id number])Indication: Acquired hypothyroidism On: :13 Request Comments: 1 month T4, FREE (THYROXINE) ([id number])Indication: Acquired hypothyroidism On: :13 Request Comments: 1 month T3, FREE (TRIDOTHYRONINE) ([id number])Indication: Acquired hypothyroidism On: 65-Mvw-012640:13 Request Comments: 1 month CBC WITH MANUAL DIFF (71942)Indication: Abnormal glucose tolerance test On: :38 Request METABOLIC PANEL, COMPREHENSIVE ([id number])Indication: Abnormal glucose tolerance test On: :38 Request LIPID PANEL ([id number])Indication: Mixed hyperlipidemia On: :38 Request MICROALBUMIN: CREATININE RATIO ([id number]) AND ([id number])Indication: Abnormal glucose tolerance test On: 18-Ajw-659974:56 Request CBC WITH MANUAL DIFF ([id number])Indication: Elevated LFTs On: :56 Request METABOLIC PANEL, COMPREHENSIVE ([id number])Indication: Elevated LFTs On: 40-Hjh-570768:56 Request LIPID PANEL ([id number])Indication: Mixed hyperlipidemia On: 25-Ore-299818:56 Request TSH ([id number])Indication: Acquired hypothyroidism On: 52-Otg-269520:56 Request CBC WITH MANUAL DIFF ([id number])Indication: Essential hypertension with goal blood pressure less than 130/80 On: :34 Request TSH ([id number])Indication: Acquired hypothyroidism On: :34 Request METABOLIC PANEL, COMPREHENSIVE ([id number])Indication: Fatty liver On: :33 Request LIPID PANEL ([id number])Indication: Mixed hyperlipidemia On: :33 Request MICROALBUMIN: CREATININE RATIO ([id number]) AND ([id number])Indication: Uncontrolled type II diabetes mellitus On: :46 Request TSH ([id number])Indication: Acquired hypothyroidism On: :46 Request LIPID PANEL ([id number])Indication: Mixed hyperlipidemia On: :45 Request METABOLIC PANEL, COMPREHENSIVE ([id number])Indication: Elevated LFTs On: :45 Request HgA1C , Office ([id number])Indication: Uncontrolled type II diabetes mellitus On: :28 Request URINE GENESIS CULTURE-NITA COL COUNT ([id number])Indication: Cystitis, acute On: :43 Request URINE GENESIS CULTURE-IDENTIFICATN ([id number])Indication: Dysuria On: :10 Request CBC WITH MANUAL DIFF ([id number])Indication: Headache On: 17-Hrn-960613:56 Request METABOLIC PANEL, COMPREHENSIVE ([id number])Indication: Headache On: 85-Soq-436626:56 Request LIPID PANEL ([id number])Indication: Mixed hyperlipidemia On: :56 Request TSH ([id number])Indication: Acquired hypothyroidism On: :56 Request METABOLIC PANEL, COMPREHENSIVE ([id number])Indication: Uncontrolled type II diabetes mellitus On: :28 Request HEPATIC FUNCTION PANEL ([id number])Indication: Mixed hyperlipidemia On: :28 Request LIPID PANEL ([id number])Indication: Mixed hyperlipidemia On: :28 Request LIPID PANEL ([id number])Indication: Mixed hyperlipidemia On: :39 Request MICROALBUMIN: CREATININE RATIO ([id number]) AND ([id number])Indication: Uncontrolled type II diabetes mellitus On: :39 Request CBC WITH MANUAL DIFF ([id number])Indication: Essential hypertension with goal blood pressure less than 130/80 On: :39 Request METABOLIC PANEL, COMPREHENSIVE ([id number])Indication: Elevated LFTs On: :39 Request TSH ([id number])Indication: Acquired hypothyroidism On: :36 Request TSH ([id number])Indication: Thyroid nodule On: 06-Fho-347400:20 Request METABOLIC PANEL, COMPREHENSIVE ([id number])Indication: Elevated LFTs On: 33-Opr-463108:19 Request LIPID PANEL ([id number])Indication: Mixed hyperlipidemia On: 96-Akx-891641:19 Request C-REACTIVE PROTEIN ([id number])Indication: Abnormal findings on diagnostic imaging of other specified body structures On: 43-Vcx-598541:02 Request SED RATE ERYTHROCYTE ([id number])Indication: Abnormal findings on diagnostic imaging of other specified body structures On: 43-Wkg-388412:02 Request LDH (LD) (LACTATE DEHYDROGENASE) ([id number])Indication: Abnormal findings on diagnostic imaging of other specified body structures On: 95-Qdq-168498:02 Request Urine Protein Electrophoresis (UPEP) ([id number])Indication: Abnormal findings on diagnostic imaging of other specified body structures On: 38-Pba-283476:02 Request Serum Protein Electrophoresis (SPEP) ([id number])Indication: Abnormal findings on diagnostic imaging of other specified body structures On: 00-Pxd-011019:02 Request METABOLIC PANEL, COMPREHENSIVE ([id number])Indication: Diabetes mellitus type II, controlled On: :19 Request LIPID PANEL ([id number])Indication: Mixed hyperlipidemia On: :19 Request URINE GENESIS CULTURE-NITA COL COUNT ([id number])Indication: Dysuria On: 13-Ncl-417871:58 Request HEPATIC FUNCTION PANEL ([id number])Indication: Elevated LFTs On: 94-Jce-598527:18 Request LIPID PANEL ([id number])Indication: Mixed hyperlipidemia On: 15-Krw-001337:17 Request MICROALBUMIN: CREATININE RATIO ([id number]) AND ([id number])Indication: Uncontrolled type II diabetes mellitus On: 2-Nyt-170599:47 Request CBC WITH MANUAL DIFF ([id number])Indication: Uncontrolled type II diabetes mellitus On: 2-Wsh-567053:47 Request METABOLIC PANEL, COMPREHENSIVE ([id number])Indication: Uncontrolled type II diabetes mellitus On: 0-Rne-019060:47 Request HEPATIC FUNCTION PANEL ([id number])Indication: Elevated LFTs On: 6-Wis-818952:45 Request LIPID PANEL ([id number])Indication: Mixed hyperlipidemia On: 5-Qhb-854966:44 Request HEPATIC FUNCTION PANEL ([id number])Indication: Fatty liver On: 5-Uic-929377:30 Request LIPID PANEL ([id number])Indication: Mixed hyperlipidemia On: 1-Cdg-586441:30 Request URINE GENESIS CULTURE (NITA COL COUNT) ([id number])Indication: Low back pain potentially associated with radiculopathy On: 24-Wvi-942000:03 Request MICROALBUMIN: CREATININE RATIO ([id number]) AND ([id number])Indication: Dysuria On: 17-Fkd-364293:05 Request LIPID PANEL ([id number])Indication: Dysuria On: 11-Rlm-815435:05 Request TSH ([id number])Indication: Dysuria On: 26-Ykk-428957:05 Request METABOLIC PANEL, COMPREHENSIVE ([id number])Indication: Dysuria On: 31-Csj-133032:04 Request CBC WITH MANUAL DIFF ([id number])Indication: Dysuria On: 60-Guv-439398:04 Request URINE GENESIS CULTURE-NITA COL COUNT ([id number])Indication: Dysuria On: 10-Rbl-754775:45 Request URINE GENESIS CULTURE (NITA COL COUNT) ([id number])Indication: Dysuria On: 17-Rds-037300:17 Request METABOLIC PANEL, COMPREHENSIVE ([id number])Indication: Fatty liver On: :58 Request Magnesium ([id number])Indication: Palpitations On: :51 Request TSH ([id number])Indication: Palpitations On: :51 Request METABOLIC PANEL, COMPREHENSIVE ([id number])Indication: Palpitations On: :51 Request CBC WITH MANUAL DIFF ([id number])Indication: Palpitations On: 79-Stw-65331:51 Request GGT (Gamma Glutamyl Transferase) ([id number])Indication: Elevated LFTs On: 97-Uir-350657:16 Request HEPATIC FUNCTION PANEL ([id number])Indication: Elevated LFTs On: 95-Sgr-522907:16 Request VITAMIN B-12 (CYANOCOBALAMIN) ([id number])Indication: Fatigue On: 12-Etz-41586:23 Request MICROALBUMIN URINE QUANT ([id number])Indication: Diabetes mellitus type II, controlled On: 46-Dyr-21775:22 Request TSH ([id number])Indication: Fatigue On: 51-Cqc-05863:22 Request CBC WITH MANUAL DIFF ([id number])Indication: Diabetes mellitus type II, controlled On: 85-Kor-47116:22 Request METABOLIC PANEL, COMPREHENSIVE ([id number])Indication: Diabetes mellitus type II, controlled On: 95-Ybi-37624:22 Request LIPID PANEL ([id number])Indication: Mixed hyperlipidemia On: 02-Lgh-19019:22 Request HEPATIC FUNCTION PANEL ([id number])Indication: Mixed hyperlipidemia On: :48 Request LIPID PANEL ([id number])Indication: Mixed hyperlipidemia On: 22-Nep-327978:48 Request Comments: in 3 mos Planned Encounters Medical; Overnight Pulse Ox Placement - On: 20-Sep-2018 13:00 [facility] Visit, Nurse Planned Procedures Echo CompleteBy: Fast DO, Sangeetha A On: 04-Sep-2018 Intent Fast DO, Sangeetha A CTA CHEST W/W/O CONTRAST ([id number])By: On: 04-Sep-2018 Intent Fast DO, Sangeetha A Fast DO, Sangeetha A Overnight Pulse OX ([id number])By: Fast On: 04-Sep-2018 Intent DO, Sangeetha A Fast DO, Sangeetha A Spirometry ([id number])By: Fast DO, On: 04-Sep-2018 Intent Sangeetha A Fast DO, Sangeetha A Comments: difficutly with insp effort severe restriction ELECTROCARDIOGRAM, COMPLETE (ECG) On: 04-Sep-2018 Intent ([id number])By: Fast DO, Sangeetha A Fast DO, Comments: ekg- 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 and possible recent anterior wall mi- nonspecific st depression Sangeetha A Flu Vaccine (Quadrivalent) 47127Pg: On: 21-Jul-2018 Intent Fast DO, Sangeetha A Fast DO, Sangeetha A SCREENING DIGITAL TOMOSYNTHESIS OF On: 21-Jul-2018 Intent BREAST ([id number])By: Fast DO, Sangeetha A Fast DO, Sangeetha A B 12 Injection, 1000 mcg ([id number])By: On: 31-May-2018 Intent Fast DO, Sangeetha A Fast DO, Sangeetha A Comments: Lot#[id number] EXP:[id number] given:left deltoid Given By: clarita albright ABN signed CT - Abdomen (IV Contrast Needed)By: On: 31-May-2018 Intent Fast DO, Sangeetha A Fast DO, Sangeetha A Doppler Ultrasound OtherBy: Fast DO, On: 19-May-2018 Intent Sangeetha A Fast DO, Sangeetha A Comments: left arm ULTRASOUND OF LIVER ([id number])By: On: 24-Feb-2018 Intent Blanca KING, Jennifer Gregory PFT - CompleteBy: Fast DO, Sangeetha A On: 21-Oct-2017 Intent Fast DO, Sangeetha A Comments: at [facility] SCREENING DIGITAL TOMOSYNTHESIS OF On: 21-Oct-2017 Intent BREAST ([id number])By: Fast DO, Sangeetha A Comments: end of oct Fast DO, Sangeetha A EsophagramBy: Fast DO, Sangeetha A Fast On: 21-Oct-2017 Intent DO, Sangeetha A Comments: with 12 mm tablet ELECTROCARDIOGRAM, COMPLETE (ECG) On: 21-Oct-2017 Intent ([id number])By: Fast DO, Sangeetha A Fast DO, Sangeetha A Flu Vaccine (Quadrivalent) 40030Is: On: 07-Jun-2017 Intent Fast DO, Sangeetha A [...] DO, Sangeetha A DEXA SCAN AXIAL SKELETON ([id number])By: On: 16-Aug-2016 Intent Fast DO, Sangeetha A Fast DO, Sangeetha A MAMMOGRAM, SCREENING, BOTH BREAST On: 16-Aug-2016 Intent ([id number])By: Fast DO, Sangeetha A Fast DO, Sangeetha A ELECTROCARDIOGRAM, COMPLETE (ECG) On: 16-Aug-2016 Intent ([id number])By: Fast DO, Sangeetha A Fast DO, Sangeetha A Flu Vaccine (Quadrivalent) 74080Ix: On: 16-Aug-2016 Intent Fast DO, Sangeetha A Fast DO, Sangeetha A Comments: FLUlot: [id number]/09site:Lt deltoidroute:IMdose:.[facility]ml[facility] [place] ADMINISTRATION OF INFLUENZA VIRUS On: 16-Aug-2016 Intent VACCINE ([id number])By: Fast DO, Sangeetha A Fast DO, Sangeetha A Ultrasound - ThyroidBy: Fast DO, On: 10-Nov-2015 Intent Sangeetha A Fast DO, Sangeetha A Ultrasound - LiverBy: Fast DO, Sangeetha On: 10-Nov-2015 Intent A Fast DO, Sangeetha A Flu Vaccine (Quadrivalent) 49602Qt: On: 08-Aug-2015 Intent Fast DO, Sangeetha A Fast DO, Sangeetha A Comments: Lot #[id number]-L dltd, IMDose prefilled syringegiven by:NATALEE JassoVIS and ABN signed MAMMOGRAM, SCREENING, BOTH BREAST On: 08-Aug-2015 Intent (33731)By: Tavon DAVIS, Sangeetha A Fast DO, Sangeetha A Ultrasound - ThyroidBy: Fast DO, On: 08-Aug-2015 Intent Sangeetha A Fast DO, Sangeetha A Ultrasound - LiverBy: Fast DO, Sangeetha On: 08-Aug-2015 Intent A Fast DO, Sangeetha A ADMINISTRATION OF PNEUMOCOCCAL On: 01-Nov-2014 Intent VACCINE (G0009)By: Tavon DAVIS, Sangeetha A Fast DO, Sangeetha A PNEUM VAC ADLT/IMUMNOSPR, SBC/INTRM On: 01-Nov-2014 Intent (85001)By: Arpan Irvin DOa A Fast DO, Comments: Lot:[id number]:02/29/16Dose:0.5mgRoute:imSite:l [place] By:BATSHEVA signed Sangeetha A Ultrasound - LiverBy: Fast DO, Sangeetha On: 05-Jul-2014 Intent A Fast DO, Sangeetha A BILATERAL MAMMOGRAMS ([id number])By: Fast On: 05-Jul-2014 Intent DO, Sangeetha A Fast DO, Sangeetha A Ultrasound - ThyroidBy: Fast DO, On: 05-Jul-2014 Intent Sangeetha A Fast DO, Sangeetha A ADMINISTRATION OF INFLUENZA VIRUS On: 05-Jul-2014 Intent VACCINE (G0008)By: Arpan Irvin DOa A Comments: Influenzalot:[id number]:03/25/2015dose:0.5mLRoute: IMlocation:R armgiven by:marika Fast DO, Sangeetha A FLU VAC, SPLIT, >3 YEARS, INTRAMUSC On: 05-Jul-2014 Intent ([id number])By: Sangeetha Irvin DO A Fast DO, Sangeetha A INFUSION, NORMAL SALINE SOLUTION , On: 15-Apr-2014 Intent 250 CC (J7050)By: Angelina Winn CNP Rocephon Injection, 1 Gm (J0696)By: On: 15-Apr-2014 Intent Angelina Winn CNP Comments: Rocephin 1gmLot #[id number]. [id number] in R hand x 1 stick with [...] SPLIT, >3 YEARS, INTRAMUSC On: 27-Jul-2013 Intent (99642)By: Fast DO, Sangeetha A Fast DO, Sangeetha A Eprescribed prescriptions (G8553)By: On: 04-Jun-2013 Intent Delisa Melendez LPN SPECIMEN HANDLING/TRANSPORT On: 04-Jun-2013 Intent ([id number])By: Delisa Melendez LPN INFUSION, NORMAL SALINE SOLUTION , On: 15-Feb-2013 Intent 1000 CC (Special Coverage Comments: 500 cc Instructions Apply. See MCM: 2049) ([id number])By: Jennifer Rios MD HYDRATION IV INFUSION, INIT On: 15-Feb-2013 Intent ([id number])By: Jennifer Rios MD Ultrasound - ThyroidBy: Fast DO, On: 19-Jan-2013 Intent Sangeetha A Fast DO, Sangeetha A MAMMOGRAM, SCREENING, BOTH BREASTS On: 19-Jan-2013 Intent (21740)By: Fast DO, Sangeetha A Fast DO, Comments: due in january Sangeetha A Eprescribed prescriptions (G8553)By: On: 19-Jan-2013 Intent Isabella Grigsby Pulse Oximetry ([id number])By: Seb, On: 29-Sep-2012 Intent Isabella Comments: 98% [...] MAMMOGRAM, SCREENING, BOTH BREASTS On: 24-Jan-2012 Intent ([id number])By: Fast DO, Sangeetha A Fast DO, Sangeetha A TDAP VACCINE >7 IM (87414)By: Fast On: 04-Oct-2011 Intent DO, Sangeetha A Fast DO, Sangeetha A Comments: Lot:[id number]:08/12/13Amt:prefilledRoute:IMSite:right deltGiven By: NATALEE Spence Aerosol Treatment (18521)By: Blanca On: 26-Aug-2011 Intent Jennifer KING Pulse Oximetry (50305)By: Blanca On: 26-Aug-2011 Intent Jennifer KING SPECIMEN HANDLING/TRANSPORT On: 23-Jul-2011 Intent (22834)By: Delisa Melendez LPN FLU VAC, SPLIT, >3 YEARS, INTRAMUSC On: 05-Jul-2011 Intent (55348)By: Isabella Grigsby Comments: Lot #[id number]-9/20/12Site-left deltoidgiven by: Lisa Bello LPN Ultrasound - ThyroidBy: Fast DO, On: 05-Jul-2011 Intent Sangeetha A Fast DO, Sangeetha A MAMMOGRAM, SCREENING, BOTH BREASTS On: 05-Jul-2011 Intent ([id number])By: Fast DO, Sangeetha A Fast DO, Sangeetha A ADMINISTRATION OF INFLUENZA VIRUS On: 05-Jul-2011 Intent VACCINE (G0008)By: Isabella Grigsby Eprescribed prescriptions (G8553)By: On: 04-Jun-[address] DO CT - Brain/HeadBy: Fast DO, Sangeetha A On: 07-Oct-2010 Intent Fast DO, Sangeetha A Comments: with and without contrast MAMMOGRAM, SCREENING, BOTH BREASTS On: 26-Jun-2010 Intent ([id number])By: Fast DO, Sangeetha A Fast DO, Sangeetha A ADMINISTRATION OF INFLUENZA VIRUS On: 26-Jun-2010 Intent VACCINE (G0008)By: Fast DO, Sangeetha A Fast DO, Sangeetha A FLU VAC, SPLIT, >3 YEARS, INTRAMUSC On: 26-Jun-2010 Intent (42650)By: Fast DO, Sangeetha A Fast DO, Comments: Lot:[id number]:12/2010Dose:0.5mlRoute:IMSite:Left DeltoidGiven by: HEIDI Alberto Sangeetha A Ultrasound - ThyroidBy: Fast DO, On: 07-Jan-2010 Intent Sangeetha A Fast DO, Sangeetha A CT - Spine/CervicalBy: Fast DO, On: 15-Dec-2009 Intent Sangeetha A Fast DO, Sangeetha A Comments: 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 -- need to rule out Pulse Oximetry (46826)By: Fast DO, On: 09-Jul-2009 Intent Sangeetha A Fast DO, Sangeetha A Spirometry (11222)By: Tavon DO, On: 10-Jul-2009 Intent Sangeetha A Fast DO, Sangeetha A Comments: good effort and curve- mild restriciton Radiology - Chest- PA and LatBy: On: 09-Jul-2009 Intent Fast DO, Sangeetha A Fast DO, Sangeetha A Pulse Oximetry ([id number])By: Tavon DO, On: 10-Jul-2009 Intent Sangeetha A Fast DO, Sangeetha A Comments: 98 FLU VAC, SPLIT, >3 YEARS, INTRAMUSC On: 09-Jul-2009 Intent ([id number])By: Isabella Grigsby Comments: Lot #[id number]-1/2010Site-right deltoidDose0.5mlgiven by Juventino Nye LPN IMMUNIZ ADMNIN, 1 VAC, SNGL/COMBO On: 09-Jul-2009 Intent (46327)By: Isabella Grigsby EKG (66967)By: Fast DO, Sangeetha A On: 10-Oct-2008 Intent [...] DO, Sangeetha On: 10-Oct-2008 Intent A Fast DO Sangeetha A Comments: 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- please do archie and also do in open mri- IMMUNIZ ADMNIN, 1 VAC, SNGL/COMBO On: 10-Jul-2008 Intent (47346)By: Arpan Irvin DOa A Tavon DAVIS, Sangeetha A FLU VAC, SPLIT, >3 YEARS, INTRAMUSC On: 10-Jul-2008 Intent ([id number])By: Sangeetha Irvin DO, DO, Comments: injection given in left deltoid, pt tolerated welllot # [id number] Sangeetha A Holter Monitor 24 hrsBy: Tavon DAVIS, On: 10-Jul-2008 Intent Sangeetha A Tavon DO, Sangeetha A EKG ([id number])By: Marlene Reddy On: 10-Jul-2008 Intent Comments: ekg showed normal sinus rhythym, normal axis, no acute st/t wave changes sinus tach - no acute changes Ultrasound - ThyroidBy: Tavon DAVIS, On: 20-Feb-2008 Intent Sangeetha A Tavon DO, Sangeetha A CT - Brain/Head (IV Contrast On: 19-Jan-2008 Intent Needed)By: Arpan Irvin DOa Emily Irvin DO, Sangeetha A Nuclear Stress TestBy: Tavon DAVIS, On: 06-Jun-2006 Intent Sangeetha Irvin DO Sangeetha A Planned Medications INFUSION, NORMAL SALINE SOLUTION , 1000 CC Ordered: 15-Feb-2013 Pending Jennifer Rios MD INFUSION, NORMAL SALINE SOLUTION , 250 CC Ordered: 15-Apr-2014 Pending Angelina Winn CNP INJECTION, CEFTRIAXONE SODIUM, PER 250 MG Ordered: 15-Apr-2014 Pending Angelina Winn CNP Vitamin B-12 1000 MCG/ML Injection Solution Ordered: 31-May-2018 Pending Arpan Irvin DOa Emily Irvin DO Sangeetha A Instructions Name Dates Details CHF (congestive heart failure) : How to access health information online Indication: CHF (congestive heart failure) CHF (congestive heart failure) : How to access health information online - Detail Indication: CHF (congestive heart failure) CHF (congestive heart failure) : Patient Instructions Indication: CHF (congestive heart failure) SOB (shortness of breath) : How to [...] Abnormal glucose tolerance test Encounters Review On: 12-Sep-2018 7:47 Encounter Reason: Follow up acute care visit - The patient does not feel well (everything is the same, no new symptoms.Still feeling very ill). Patient has been compliant with instructions. Note for Follow up acute care visit: - she still short of breath is urinating more hasnt started the spironolactone yet- she is getting some nausea- with exertion - no chest pain- she not watching her salt or fluid or weight so we discussed that- she never did ct of abd to followup on abnormal liver tumor marker so need to do that- she hasnt got the oxygen started because her isnurnace not cover so looking for another company- s he ot testing sugars at home so encourage her to do as up, [ADDITIONAL REASON] Follow up tests - Date: (09/06 echo). Encounter Diagnosis: Nonsmoker, BMI 31.0- 31.9,adult, CHF (congestive heart failure), Nocturnal hypoxia, Cardiomyopathy (425.4), Elevated liver enzymes, Uncontrolled type II diabetes mellitus [facility] Phone Encounter On: 08-Sep-2018 9:59 Encounter Diagnosis: [...] some palps- supposed to see rosetta in [facility] Diagnosis: BMI 31.0-31.9,adult, Nonsmoker, SOB (shortness of [...] using tylenol and will go back to [place] if need be for shot-sugar fine-n foot [...] off metformin and lisinopril andthen went to [place] for couple weeks then had multiple falls sent back to hospital and transferred to [facility] for few weeks then to [facility] had lots of pt- and [...] morning before a neck injection with Dr oCnway)., [ADDITIONAL REASON] Follow up tests - Date: [...] Patient has been compliant with instructions. Current nm End: 01-Mar-2017 9:26 dication use: no side [...] anxiety and depression. Note for Physical exam: [facility] Wellness Physical- she is down 107 pounds [...] from Need for immunizati on against influenza), [facility] WELLNESS, Encounter for screening mammogram for breast [...] high blood pressure, high cholesterol and other (cnocepción). Note for Follow up for chronic medical [...] Reason for hospitalization abdominal pain (Went to [facility] on 02/28/15). Hospitalization details include: abnormal tests [...] patient is following up for include Al mk identified problems below, blood sugar issues, cardiac [...] previously evaluated by a primary physician (at [facility]- Dr Reyes ). Presentation included lid [...] is helping her mood- has followup in [place] may 04 - her weight down 20 [...] sees heart failure doctor next week at [facility] - -- mood ebs and flows- [...] has been compliant with instructions. Currkelly End: 24-Jan-2012 10:56 nt medication use: no [...] of all the problems -goes back to [facility] on tuesday and psych in 2 [...] or less). 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
--- OUTSIDE RECORDS SUMMARY | 2018-10-21 23:37 | XMS RPT_ITS | Continuity of Care Document ---
:1965 Author Organization [facility] Address [facility] [address] [place] [address] Phone Care Team Providers Name Role Phone Sangeetha Irvin DO Unavailable Janlele CONLEY MD , Alejandro Andrews Unavailable Dr. [...] Quantity: 30 {Capsule} Refills: 3 Ordered:01-Mar-2017 , Sangeetha العراقي DO, Sangeetha A Start : 01-Mar-2017 Active Zofran 4 MG Oral Tablet 1 (one) Tablet Tablet every 8 hours prn nausea vomting for 0 days Quantity: 10 {Tablet} Refills: 0 Ordered:23-Feb-2018 Long KINESIOLOGIST, Amelia L Start : 23-Feb-2018 Active AMITIZA, [...] Refills: 0 Ordered:09-Jun-2018 DO, Sangeetha AFast DO, Sanegetha A Start : 09-Jun-2018 End : 16-Jun-2018 [...] : 25-Jan-2018 End : 19-May-2018 Inactive ERGOCALCIFEROL, 27005HNIV (Oral Capsule) 1 (one) Capsule Capsule twice [...] : 23-Jul-2011 End : 02-Aug-2011 Inactive MAXITROL, 3.5-17998-3.1 (Ophthalmic Ointment) apply to eye lids as [...] hs (50 MG) Inactive Comments:Dr. Hankins NYSTATIN, 047048PDMT/ML (Mouth/Throat Suspension) 5cc Suspension 5 times daily [...] Quantity: 30 {Tablet} Refills: 0 Ordered:19-May-2018 Long KINESIOLOGISTAmelia Start : 12-May-2012 End : 19-May-2018 Discontinued Comments:This order discontinued per [facility]. ZOFRAN ODT, 4MG (Oral Tablet Dispersible) qd prn nausea (4 MG) End : 08-Aug-2015 Discontinued Comments:[facility] Allergies and Adverse Reactions Name [...] w/ Contrast Result: Comments: See Note; NOTES: [facility] Cardiovascular Services [address] [place] [address] Echo Complete W/ Contrast 09/06/18 1002 MR#: [id number] Acct: [id number] Name: IFEOMA DÍAZ Rep #: [id number] : 1965 53 From: Boone Ch MD Attending Dr: Sangeetha Irvin DO Status: REG CLI Ordering Dr: Sangeetha Irvin DO Date: 09/06/18 Location: [facility] Sex: F C Admitted: Reason F or [...] Dictated: 09/06/18 1002 Date Transcribed: 09/06/18 1534 Utility Appraiser: Signed 04-Sep-2018 CTA Chest W/WO Contrast Result: Comments: See Note; NOTES: [facility] Imaging Services [address] [place] [address] CTA Chest W/WO Contrast MR#: [id number] Acct: [id number] Name: IFEOMA ASHRAF Rep #: [id number] : 1965 F 53 From: Ziggy Santos MD PCP: Sangeetha Irvin DO Status: REG CLI Study: CTA Chest W/WO Contrast Date of Exam: 09/04/18 Exam# [id number] Ordering Dr: Sangeetha Irvin DO STUDY: CTA [...] Service support , CC: Sangeetha Irvin DO Utility Appraiser: Signed 14-Jul-2018 Chest PA and Lateral Result: Comments: See Note; NOTES: [facility] Imaging Services [address] [facility] [place] [address] Chest PA and Lateral MR#: [id number] Acct: [id number] Name: MARIOIFEOMA ALAN Ashok Rep #: [id number] : 1965 F 53 From: Dimitris Valderrama DO PCP: Sangeetha Irvin DO Status: REG CLI Study: Chest PA and Lateral Date of Exam: 07/14/18 Exam# [id number] Ordering Dr: Shahrzad Todd PLUMBING INSPECTOR-C STUDY: X-RAY CHEST REASON FOR EXAM: Female, [...] Signed: Dimitris Valderrama at 8:47 EDT Tel [phone], Service support , CC: NUNU Todd; Sangeetha Irvin DO Utility Appraiser: Signed 10-Jun-2018 Pacemaker Check Result: Comments: See Note; NOTES: [facility] [address] [place] [address] Pacemaker Check Date of Service: 06/09/18908 MR#: [id number] Acct: [id number] Name: IFEOMA ASHRAF Rep #: [id number] : 1965 From: Danica Pickering Age/Sex: 53/F Location: [facility] Status: Signed Billing Codes ICD Device Billing: ICD Dev Prog Eval, Single 06/09/18 0913 <Elec tronically signed by Danica Pickering > Date Danica Pickering 06/10/18 1406<Electronically signed by Boone Ch MD> Cosigner Signat ure: Date (if applicable) Boone Ch MD CC: 08-Jun-2018 Cardiology Visit Report Result: Comments: See Note; NOTES: [facility] [address] [place] [address] OFFICE VISIT Date of Service: 05/31/18 MR#: [id number] Acct: [id number] Name: IFEOMA ASHRAF Rep #: [id number] : 1965 Provider: NUNU Todd Age/Sex: 53/F [facility] Status: Signed with Addenda ADDENDUM by NUNU Todd on 06/01/18 at 0746 Addendum entered and electronic ally signed by LUPE Black 06/01/18 07:46: Patient's outside records from [facility] admission from 04/07/2018 to 04/27/2018 were [...] ultimately discharged home with requested follow-up with [facility] neurology or local neurolo gist in [...] defibrillator (ICD) Z95.810 Generator change 11/13 @ [facility] LUPE Chapman Pacemaker check in [...] prior to saving. Follow Up 6 Months (CAREER TECHNICAL COUNSELOR) 05/31/18 (GIUSEPPE) 06/01/18 0747 <Electronically signed by [...] ral regurgitation and tricuspid regurgitation. [facility] after being found unresponsive in her bathroom. During this hospitalization she was found to have an acute left axillary and left brachial vein DVT and was started on Eliquis. She presented to [facility] emergency department in March 2018 for altered mental status. Her CT scan prior to ER visit showed possible hygroma versus subacute resolving subdural hematoma. She was transferred to [facility] for further evaluation. These records are [...] 05/31/18 Pulse Rate 100 Intake Visit Reasons: [facility] to [facility] to [facility] to [facility] Allergies amitriptyline Adverse Reaction (Severe, Verified 05/31/18 [...] prior to saving. Follow Up 6 Months (CAREER TECHNICAL COUNSELOR) 05/31/18 (GIUSEPPE) Coding Level of Care Code [...] Visit Report Result: Comments: See Note; NOTES: [facility] [address] [place] [address]. [place] [address] OFFICE VISIT Date of Service: 06/05/18 1314 MR#: [id number] Acct: [id number] Name: TYLOR ASHRAF Dm Pulido Rep #: [id number] : 1965 From: Simeon Gresham MD Age/Sex: 53/F Location: [facility] Status: Signed Subjective - Date of Service Date of Service:: 06/05/18 - Chief Complaint Follow up DLBCL - His tory of Present Illness 53-year-old woman was diagnosed with non-Hodgkin's lymphoma, diffuse large B cell, stage IV of the uterine cervix with STICKER HAND/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 She had [...] stem cell transplant in February 2007 at [facility] with complete remission. She is on observation, [facility] in for follow up. - Past [...] Chronic Code Visit Office Visits / Consults: 56404 OV L3 Est 1325 <Electronically signed by Simeon Gresham MD> Date Simeon Gresham MD Cosigner Signature: Date (if applicable) CC: 26-May-2018 Venous Duplex Upper Extremity Result: Comments: See Note; NOTES: [facility] Cardiovascular Services [address] [place] [address] Venous Duplex US, Unilateral 05/25/18 0903 MR#: [id number] Acct: [id number] Name: IFEOMA SILVA Rep #: [id number] : 1965 53 From: Juanjo Russo MD [...] Dictated: 05/25/18 0903 Date Transcribed: 05/26/18 1635 Utility Appraiser: Signed 06-Apr-2018 Chest 1 View (Portable) Result: Comments: See Note; NOTES: [facility] Imaging Services [address] [place] [address] Chest 1 View (Portable) MR#: [id number] Acct: [id number] Name: IFEOMA ASHRAF Rep #: [id number] : 1965 F 53 From: Levy Lucas DO PCP: Sangeetha Irvin DO Status: PRE ER Study: Chest 1 View (Portable) Date of Exam: 04/06/18 Exam# [id number] Ordering Dr: Dejuan Bacon MD STUDY: X-RAY [...] , CC: Sangeetha Irvin DO; Dejuan Bacon Utility Appraiser: Signed 05-Apr-2018 Brain/Head without Contrast Result: Comments: See Note; NOTES: [facility] Imaging Services [address] [place] [address] Brain/Head without Contrast MR#: [id number] Acct: [id number] Name: IFEOMA ASHRAF Rep # : [id number] : 1965 F 53 From: Levy Lucas DO PCP: Sangeetha Irvin DO Status: REG CLI Study: Brain/Head without Contrast Date of Exam: 04/05/18 Exam# [id number] Ordering Dr: Shahrzad Bartlett MD STUDY : [...] 14:06 EDT Tel , Service support 1- [phone], N.B. : The above information has been verbally conveyed by Levy Lucas DO to connected , Covering Physician, on 04/05/2018 14:06:03 (ET). CC: Sangeetha Irvin DO; Shahrzad Bartlett MD Utility Appraiser: Signed 05-Apr-2018 Brain/Head without Contrast Result: Comments: See Note; NOTES: [facility] Imaging Services [address] [place] [address] Brain/Head without Contrast MR#: [id number] Acct: [id number] Name: IFEOMA ASHRAF Rep # : [id number] : 1965 F 53 From: Levy Lucas DO PCP: Sangeetha Irvin DO Status: REG CLI Study: Brain/Head without Contrast Date of Exam: 04/05/18 Exam# [id number] Ordering Dr: Shahrzad Bartlett MD STUDY : [...] erbally conveyed by Levy Lucas DO to [facility] ([place], [place]) Physician, on 04/05/2018 14:06:03 (ET). Electronically Signed: Levy Lucas DO at 14:06 EDT Tel , Service support 1- [phone], N.B. : The above information has been verbally conveyed by Levy Lucas DO to connected , Covering Physician, on 04/05/2018 14:06:03 (ET). CC: Sangeetha Irvin DO; Shahrzad Bartlett MD Utility Appraiser: Signed 31-Mar-2018 Cardiology Visit Report Result: Comments: See Note; NOTES: [facility] [address] [place] [address] OFFICE VISIT Date of Service: 03/31/18 MR#: [id number] Acct: [id number] Name: Ifeoma Ashraf Rep #: [id number] : 1965 Provider: Boone Ch MD Age/Sex: 53/F Location: [facility] Status: Signed HPI HPI Chief Complaint: Follow-up [...] who presented to the emergency department at [facility] on 03/08/2018 aft er being found unresponsive [...] care unit. She was eventually transferred to [facility]. 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 I would like to obtain a manager chemistry ry profile to be able to appropriately adjust any diuretics. At this juncture it may be prudent to add Lasix 40 mg a day to her current regimen. 2. Presence of implantable cardioverter-defibrillator (I CD) Z95.810 Generator change 11/13 @ [facility] Dr. Ahmadi Plan She does [...] months. 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 (home health lvn) Coding Level of Care Code Off vis,est,level [...] Flow Screening Result: Comments: See Note; NOTES: [facility] Cardiovascular Services [address] [place] [address] 11/22/17 0803 MR#: [id number] Acct: [id number] Name: IFEOMA ASHRAF Rep #: [id number] [...] Dictated: 11/22/17 0803 Date Transcribed: 11/22/17 1518 Utility Appraiser: Signed 18-Nov-2017 Office Visit Report Result: Comments: See Note; NOTES: [facility] [address] [place] [address] OFFICE VISIT Date of Service: 11/17/17 MR#: [id number] Acct: [id number] Patient: IFEOMA ASHRAF Rep #: [id number] : 1965 Provider: Danica Pickering Age/Sex: 52/F [...] n office Interview Reason: scheduled follow up Rehabilitation Technician: [employer] Name: Lan Mckeon VR Model: [id number] Serial #: [id number] Implant Date: 11/10/17 Year(s): 0 Implant Physician: [...] and No drainage Bibiana ds Lead #1 Rehabilitation Technician Lead 1: [employer] Model Lead 1: 7121Q/58 Serial# Lead 1: [id number] Date Implanted Lead 1: 10/10/09 Position Lead [...] Operative Report Result: Comments: See Note; NOTES: [facility] Medical Records Department [address] [place] [address] Operative Report 11/10/17 1148 MR#: [id number] Acct: [id number] Name: SALOME ASHRAF Rep #: [id number] : 1965 52 From: Lior Ahmadi MD PCP: Sangeetha Irvin DO Status: REG [facility] [place] Location: [facility] Operative Report Date of Procedure: 11/10/17 Preoperative diagnosis is device at end of life for normal battery depletion. Postoperative diagnosis same as above. After informed consent and IV antibiotics the patient was brought to the [facility] and the ski n over [...] chart documents provided by the device company insurance claim representative procedure summary. 11/10/17 1150 <Electronically signed by Lior Ahmadi MD > Date Lior Ahmadi MD CC: Sangeetha Irvin DO; Lior Ahmadi MD Signed 03-Nov-2017 Office Visit Report Result: Comments: See Note; NOTES: [facility] [address] [facility] [place] [address] OFFICE VISIT Date of Service: 11/03/17 MR#: [id number] Acct: [id number] Patient: IFEOMA ASHRAF Rep #: [id number] : 1965 Provider: Danica Pickering Age/Sex: 52/F Location: [facility] Status: Signed Comments Summary Comments: Written and [...] in office Interview Reason: routine follow up Rehabilitation Technician: [employer] Name: Current VR Model: 1211-36Q ICD Serial #: [id number] Implant Date: 10/10/09 Year(s): 8 Implant Physician: [...] Model Lead 1: 7121Q/58 Serial# Lead 1: [id number] Date Implanted Lead 1: 10/10/09 Position Lead [...] automatic cardioverter/defibrillator (AIC D) Z95.810 10/06/2009 @ [facility] 2. Cardiomyopathy in other diseases classified elsewhere I43 11/03/17 1251 <Electronically signed by Danica Pickering > Date Danica Pickering 11/03/17 1648<Electronically signed by Boone Ch MD> Junior Signature: Date (if applicable) Boone Ch MD CC: 03-Nov-2017 Cardiology Visit Report Result: Comments: See Note; NOTES: [facility] [place] [address] OFFICE VISIT Date of Service: 11/03/17 MR#: [id number] Acct: [id number] Name: IFEOMA ASHRAF Rep #: [id number] : 1965 Provider: Boone Ch MD Age/Sex: 52/F Location: [facility] Status: Signed HPI HPI Details: IFEOMA ASHRAF, [...] 29 (25% per echo 03/11/2015) [facility] Medical History Type 2 diabetes mellitus without [...] of automatic cardioverter/defibrillator (AICD) Z95.810 10/06/2009 @ [facility] Plan She is status post [...] was also being followed up at the [facility]. She is also on spironolactone and [...] and Lateral Result: Comments: See Note; NOTES: [facility] Imaging Services [address] [place] [address] Chest PA and Lateral MR#: [id number] Acct: [id number] Name: IFEOMA ASHRAF Rep #: [id number] : 1965 F 52 From: Dimitris Valderrama DO PCP: Sangeetha Irvin DO Status: PRE [facility] Study: Chest PA and Lateral Date of Exam: 11/03/17 Exam# [id number] Ordering Dr: Boone Ch MD STUDY: X-RAY [...] Dimitris Valderrama DO at 18:21 EST Tel [phone], Se rvice support , CC: Boone Ch MD; Sangeetha Irvin DO Utility Appraiser: Signed 14-Oct-2017 Office Visit Report Result: Comments: See Note; NOTES: [address] [place] [address] OFFICE VISIT Date of Service: 10/12/17 MR#: [id number] Acct: [id number] Patient: IFEOMA ASHRAF Rep #: [id number] : 1965 Provider: Danica Pickering Age/Sex: 52/F Location: [facility] Status: Signed Comments Summary Comments: Single Chamber ICD Evaluation: Interrogation shows No VT/VF episodes since . No Alerts noted. Left pectoral pocket/incision w/o s/s of infection or erosion. Pt offers no cardiac complaints. Presenting rhythm shows Sinus Tachycardia @ 105 bpm. Left pectoral pocket/incision w/o s/s of infection or erosion. COMMODITY MERCHANT=0%. Battery longevity approx 2.9 mos. At device check in June device showed longevity of 14 mos. D/T longevity decreasing quickly pt scheduled for ICD generator el gilliam with Dr. Ahmadi on 11/10/17 @ [facility]. Lead impedances, sensing and pace/sense threshold remain stable. No parameter changes made. Counters cleared. Pt scheduled for o.v and teaching on 11/03/17 and ICD g enerator change on 11/10/17. Device Device Date Interviewed: 10/12/17 Follow- up Location: in office Interview Reason: routine follow up Rehabilitation Technician: 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 Model Lead 1: 7121Q/58 Serial# Lead 1: [id number] Date Implanted Lead 1: 10/10/09 Position Lead [...] IV Contrast Result: Comments: See Note; NOTES: [facility] Imaging Services [address] [place] [address] Abdomen WITH IV Contrast MR#: [id number] Acct: [id number] Name: IFEOMA ASHRAF Rep #: [id number] : 1965 F 52 From: Carl Vincent MD PCP: Sangeetha Irvin DO Status: REG CLI Study: Abdomen WITH IV Contrast Date of Exam: 06/15/17 Exam# [id number] Ordering Dr: Analisa Conway MD STUDY: CT [...] CC: Analisa Conway MD; Sangeetha Irvin DO Utility Appraiser: Signed 15-Jun-2017 Spine Cervical without Contras Result: Comments: See Note; NOTES: [facility] Imaging Services [address] [place] [address] Spine Cervical without Contras MR#: [id number] Acct: [id number] Name: IFEOMA ASHRAF p #: [id number] : 1965 F 52 From: Zev Mandujano MD PCP: Sangeetha Irvin DO Status: REG CLI Study: Spine Cervical without Contras Date of Exam: 06/15/17 Exam# [id number] Ordering Dr: Analisa Conway MD STUDY: CT [...] CC: Analisa Conway MD; Sangeetha Irvin DO Utility Appraiser: Signed 10-Feb-2017 Spine Lumbar without Contrast Result: Comments: See Note; NOTES: [facility] Imaging Services [address] [place] [address] Verdana 4d Spine Lumbar without Contrast MR#: [id number] Acct: [id number] Name: MARISEL ASHRAF Rep #: [id number] : 1965 F 51 From: Brian Gill MD PCP: Sangeetha Irvin DO Status: REG CLI Study: Spine Lumbar without Contrast Date of Exam: 02/10/17 Exam# [id number] Ordering Dr: Analisa Carr i, MD STUDY: [...] CC: Analisa Conway MD; Sangeetha Irvin DO Utility Appraiser: Signed 20-Jan-2017 Liver Result: Comments: See Note; NOTES: [facility] Imaging Services [address] [place] [address] Verdana 4d Liver MR#: [id number] Acct: [id number] Name: IFEOMA ASHRAF Rep #: [id number] : 1965 F 51 From: Vincent Bui DO PCP: Sangeetha Irvin DO Status: REG CLI Study: Liver Date of Exam: 01/20/17 Exam# [id number] Ordering Dr: Sangeetha Irvin DO STUDY: ABDOMINAL [...] Vincent Bui DO at 23:43 EDT Tel [phone], Service support , CC: Sangeetha Irvin DO Utility Appraiser: Signed 20-Jan-2017 Thyroid Result: Comments: See Note; NOTES: [facility] Imaging Services [address] [place] [address] Verdana 4d Thyroid MR#: [id number] Acct: [id number] Name: IFEOMA ASHRAF Rep #: [id number] : 1965 F 51 From: Jin Rolon PCP: Sangeetha Irvin DO Status: REG CLI Study: Thyroid Date of Exam: 01/20/17 Exam# [id number] Ordering Dr: Sangeetha Irvin DO STUDY: THYROID [...] Service support , CC: Sangeetha Irvin DO Utility Appraiser: Signed 17-Nov-2016 Dexa Bone Density Study (HP) Result: Comments: See Note; NOTES: [facility] Imaging Services [address] [place] [address] Verdana 4d Dexa Bone Density Study (HP) MR#: [id number] Acct: [id number] Name: SEAN HARPAL Pulido Rep #: [id number] : 1965 F 51 From: Prashant Delgadillo MD PCP: Sangeetha Irvin DO Status: REG CLI Study: Dexa Bone Density Study (HP) Date of Exam: 11/17/16 Exam# [id number] Ordering Dr: Sangeetha Irvin DO STUDY: DUAL [...] Prashant Delgadillo MD at 10:52 EST Tel [phone], Service support [phone], CC: Sangeetha Irvin DO Utility Appraiser: Signed 17-Nov-2016 SCREENING MAMM (CAD), BILAT Result: Comments: See Note; NOTES: [facility] Imaging Services [address] [place] [address] Verdana 4d SCREENING MAMM (CAD), BILAT MR#: [id number] Acct: [id number] Name: SALOME ASHRAF Rep #: [id number] : 1965 F 51 From: Prashant Delgadillo MD PCP: Sangeetha Irvin DO Status: REG CLI Study: SCREENING MAMM (CAD), KANU Date of Exam: 11/17/16 Exam# [id number] Ordering Dr: Gary Irvin DO MAMMOGRAPHY - [...] biopsy of a clinically suspiciou s abnormality. [id number] Electronically Signed: Prashant Delgadillo MD at 12:55 EST Tel [phone], Service support [phone], CC: Sangeetha Irvin DO Utility Appraiser: Signed 17-Nov-2016 SCREENING MAMM (CAD), BILAT Result: Comments: See Note; NOTES: [facility] Imaging Services [address] [place] [address] Verdana 4d SCREENING MAMM (CAD), BILAT MR#: [id number] Acct: [id number] Name: SALOME ASHRAF Rep #: [id number] : 1965 F 51 From: Prashant Delgadillo MD PCP: Sangeetha Irvin DO Status: REG CLI Study: SCREENING MAMM (CAD), BILAT Date of Exam: 11/17/16 Exam# [id number] Ordering Dr: Gary Irvin DO ADDENDUM by [...] delay biopsy of a clinically suspicious abnormality. [id number] Electronically Signed: Prashant Delgadillo MD at 13:07 EST Tel [phone], Service support [phone], 11/17/16 1315 Date cc: Sangeetha Irvin DO [...] delay biopsy of a clinically suspicious abnormality. [id number] Electronically Signed: Prashant Delgadillo MD at 12:55 EST Tel [phone], Ser vice support [phone], CC: Sangeetha Irvin DO Utility Appraiser: Signed 19-Dec-2015 Liver Result: Comments: See Note; NOTES: [facility] Imaging Services [address] [place] [address] Verdana 4d Liver MR#: [id number] Acct: [id number] Name: IFEOMA ASHRAF Rep #: [id number] : 1965 F 50 From: Ziggy Santos MD PCP: Sangeetha Irvin DO Status: REG CLI Study: Liver Date of Exam: 12/19/15 Exam# [id number] Ordering Dr: Sangeetha Irvin DO STUDY: ABDOMINAL [...] at 10:55 EDT Tel , Service support [phone], CC: Sangeetha Irvin DO Utility Appraiser: Signed 19-Dec-2015 Thyroid Result: Comments: See Note; NOTES: [facility] Imaging Services [address] [place] [address] Verdana 4d Thyroid MR#: [id number] Acct: [id number] Name: IFEOMA ASHRAF Lois ep #: [id number] : 1965 F 50 From: Ziggy Santos MD PCP: Sangeetha Irvin DO Status: REG CLI Study: Thyroid Date of Exam: 12/19/15 Exam# [id number] Ordering Dr: Sangeetha Irvin DO STUDY: THYROID [...] Service support , CC: Sangeetha Irvin DO Utility Appraiser: Signed 14-Aug-2015 Bilat Scrn Digital AND CAD Result: Comments: See Note; NOTES: [facility] Imaging Services [address] [place] [address] Verdana 4d Bilat Scrn Digital AND CAD MR#: [id number] Acct: [id number] Name: IFEOMA ASHRAF Rep #: [id number] : 1965 F 50 From: Prashant Delgadillo MD PCP: Sangeetha Irvin DO Status: REG CLI Study: Bilat Scrn Digital AND CAD Date of Exam: 08/14/15 Exam# [id number] Order ing Dr: Sangeetha Irvin DO MAMMOGRAPHY [...] Prashant Delgadillo MD at 10:49 EST Tel [phone], Service support [phone], CC: Sangeetha Irvin DO Utility Appraiser: Signed 10-Mar-2015 Emergency Department Summary Result: Comments: See Note; NOTES: [facility] Medical Records Department [address] [place] [address] Emergency Department Summary MR#: [id number] Acct: [id number] Name: MARIOMARILU CRAFTIFEOMA Rep #: [id number] : 1965 49 From: Mayito Roldan DO [...] or condition worsens in any way. Mayito oRldan DO T: NTS JOB: [id number] 03/10/15 2329 <Electronically signed by Mayito Roldan DO> Date Mayito Roldan DO CC: Sangeetha Irvin DO Date Dictated: 02/28/15824 Date Transcribed: 02/28/15824 Utility Appraiser: Signed 02-Mar-2015 Emergency Department Summary Result: Comments: See Note; NOTES: [facility] Medical Records Department [address] [place] [address] Emergency Department Summary MR#: [id number] Acct: [id number] Name: IFEOMA RASMUSSEN Rep #: [id number] : 1965 49 From: Alejandro Lopez DO PCP: Sangeetha Irvin DO Status: [facility] [facility] DATE OF SERVICE: 02/28/2015 [...] The patient has plans to go to [facility] on General. I will give her local surgeon's name if she wants to speak with them or she can certainly also speak with Dr. Irvin. CLINICAL IMPRESSION: Biliary colic. Alejandro Lopez DO T: ROCK JOB: [id number] 03/02/1543 <Electronically signed by Alejandro Lopez DO> Date Alejandro Lopez DO CC: Sangeetha Irvin DO Date Dictated: 718 Date Transcribed: 02/28/15718 Utility Appraiser: Signed 28-Feb-2015 Discharge Instruction Result: Comments: See Note; NOTES: [facility] Medical Records Department [address] [place] [address] Discharge Instruction 02/28/15 0639 MR#: [id number] Acct: [id number] Name: IFEOMA ASHRAF Rep #: [id number] : 1965 49 From: Alejandro Lopez DO [...] problems, contact your doctor. Call [facility] ([phone]) or report to the closest Em ergency Room. Call 911 if necessary. 02/28/15 0640 <Electronically signed by Alejandro Lopez DO> Date Alejandro Lopez DO Cosign er Signature (If Indicated): Date CC: Sangeetha Irvin DO 28-Feb-2015 Gallbladder Result: Comments: See Note; NOTES: [facility] Imaging Services [address] [place] [address] Ultrasound Report MR#: [id number] Acct: [id number] Name: IFEOMA ASHRAF Rep #: [id number] : 1965 F 49 From: Prashant Delgadillo MD PCP: Sangeetha Irvin DO Status: REG ER Study: Gallbladder Date of Exam: 02/28/15 Exam# [id number] Ordering Dr: Alejandro Lopez DO STUDY: ABDOM [...] Prashant Delgadillo MD at 8:15 EDT Tel [phone], Service support [phone], CC: Alejandro Lopez DO; Sangeetha Irvin DO Utility Appraiser: Signed 11-Feb-2015 Spine Cervical without Contras Result: Comments: See Note; NOTES: [facility] Imaging Services [address] [place] [address] CAT Scan Report MR#: [id number] Acct: [id number] Name: IFEOMA ASHRAF Rep #: [id number] : 1965 F 49 From: Prashant Delgadillo MD PCP: Sangeetha Irvin DO Status: REG CLI Study: Spine Cervical without Contras Date of Exam: 02/11/15 Exam# [id number] Ordering Dr: Analisa Conway MD STUDY: CT [...] Prashant Delgadillo MD at 9:49 EDT Tel [phone], Service support [phone], CC: Analisa Conway MD; Sangeetha Irvin DO Utility Appraiser: Signed 18-Jul-2014 Bilat Scrn Digital & CAD Result: Comments: See Note; NOTES: [facility] Imaging Services [address] [place] [address] Breast Imaging Report MR#: [id number] Acct: [id number] Name: IFEOMA ASHRAF Rep # : [id number] : 1965 F 49 From: Prashant Delgadillo MD PCP: Sangeetha Irvin DO Status: REG CLI Exam# [id number] Ordering Dr: Sangeetha Irvin DO MAMMOGRAPHY - [...] Prashant Delgadillo MD at 8:36 EDT Tel [phone], Servi ce support [phone], CC: Sangeetha Irvin DO Utility Appraiser: Signed 18-Jul-2014 Liver Result: Comments: See Note; NOTES: [facility] Imaging Services [address] [place] [address] Ultrasound Report MR#: [id number] Acct: [id number] Name: IFEOMA ASHRAF Rep #: [id number] : 1965 F 49 From: Prashant Delgadillo MD PCP: Sangeetha Irvin DO Status: REG CLI Study: Liver Date of Exam: 07/18/14 Exam# [id number] Ordering Dr: Sangeetha Irvin DO STUDY: ABDOMINAL [...] Prashant Delgadillo MD at 9:34 EDT Tel [phone], Service support [phone], CC: Sangeetha Irvin DO Utility Appraiser: Signed 18-Jul-2014 Thyroid Result: Comments: See Note; NOTES: [facility] Imaging Services [facility] [place] [address] Ultrasound Report MR#: [id number] Acct: [id number] Name: IFEOMA ASHRAF Rep #: [id number] : 1965 F 49 From: Prashant Delgadillo MD PCP: Sangeetha Irvin DO Status: REG CLI Study: Thyroid Date of Exam: 07/18/14 Exam# [id number] Ordering Dr: Sangeetha Irvin DO STUDY: THYROID [...] Delgadillo MD at 8:41 EDT T el [phone], Service support [phone], CC: Sangeetha Irvin DO Utility Appraiser: Signed 05-Feb-2014 Brain/Head W/WO Contrast Result: Comments: See Note; NOTES: [facility] Imaging Services [address] [place] [address] CAT Scan Report MR#: [id number] Acct: [id number] Name: IFEOMA ASHRAF Rep #: [id number] : 1965 F 48 From: Prashant Delgadillo MD PCP: Sangeetha Irvin DO Status: REG CLI Study: Brain/Head W/WO Contrast Date of Exam: 02/05/14 Exam# [id number] Ordering Dr: Sangeetha Irvin DO STUD Y: [...] Prashant Delgadillo MD at 9:19 EDT Tel [phone], Service support [phone], CC: Sangeetha Irvin DO Utility Appraiser: Signed Immunization Name Dates Details Influenza (3 years and up) on: 10-Jul-2008 Comments: injection given in left deltoid, pt tolerated welllot # [id number] Influenza (3 years and up) on: 09-Jul-2009 Comments: Lot #[id number]-right deltoidDose0.5mlgiven by Juventino Nye LPN Family History [...] kg/m2 Body Surface Area Calculated 2.21 m2 1-Htl-087270:11 Temperature 98.4 f Comments: Method: Oral Pulse [...] Arm; Cuff Size: Standard Weight 249.125 lb 19-Jcn-578138:19 Temperature 97.2 f Comments: Method: Temporal Pulse [...] Value Details :59 BNP,B-Type NATRIURETIC PEPTIDE Comments: [facility] [address] [place], [address] B-TYPE JACKIE PEP 819.3 pg/mL (Abnormal) Range: 0-100 :59 CBC W/Diff, Automated Comments: [facility] [address] [place], [address] Absolute Lymph 1.08 {X10_3/ul} (Normal) [...] 4.2-5.4 WBC 7.5 K/mm3 (Normal) Range: 4.4-11.0 81-Snz-318089:59 Comprehensive Metabolic Profil Comments: 'TROP' Serial specimen #1, #2, #3, or #4: 1[facility] [address] [place], [place], [address] GAP 8 (Normal) Range: 5-15 CO2 29.0 [...] A.D.A. criteria.Please note revised GLUCOSE reference range fogkslvad62/02/2018. 21-Brf-121698:59 CPK Total, Creatine Kinase Comments: 'TROP' Serial specimen #1, #2, #3, or #4: [address] [place] [address] [place], [place], [address] CPK TOTAL 30 U/L (Normal) Range: 26-192 38-Fks-877478:59 D-Dimer Quantitative (DVT/PE) Comments: [facility] [address] [place], [place], [id number] D-DIMER QUANT 1.44 {FEU/ug/m} (Abnormal) Range: 0.27-0.49 Comments: CRITICAL VALUE VERIFIED. CALLED TO TDKLTANI06/10/18 1440 Francois Quinn.RESULTS READ BACK BY SAME .D-Dimer ELEVATED (>0.49): Additional studies and clinicalassessments are indicated to conclude di agnosis of:Deep Vein Thrombosis (DVT) or Pulmonary Embolism (PE) 59-Qaq-863577:59 Troponin-I Comments: 'TROP' Serial specimen #1, #2, #3, or #4: [address] [place] [address] [place], [address] TROPONIN-I 0.030 ng/mL (Normal) Comments: TROPONIN-I EXPECTED [...] angiographical evidence. PLEASE NOTE: REFERENCE RANGES EDITED 02/06/1829-Aug-20189-Xsu-243061:44 ANCA Comments: Is Patient Fasting? [facility] (refer to report for specific site)refer to report for address and phone number Atypical pANCA <1:20 {titer} (Normal) Comments: The atypical pANCA pattern has been observed in asignificant percentage of patients with ulcerative colitis,primary sclerosing cholangitis and autoimmune hepatitis.Performed at: [facility] [place], [place] [id number] Director: Omar Hood PhD, Phone: [phone] PERINUCLEAR Ab <1:20 {titer} (Normal) Comments: The presence of positive fluorescence exhibiting P-ANCA orC-ANCA patterns alone is not specific for the diagnosis ofWegener's Granulomatosis (WG) or microscopic polyangiitis.Decisions about treatment sh ould not be based solely onANCA IFA results. The International ANCA Group Consensusrecommends follow up testing of positive sera with both WY-3 and MPO- ANCA enzyme immunoassays. As many as 5% serumsamp les are positive only by EIA. Ref. AM J Clin Axprwt0748;111:507-513. CYTOPLASMIC Ab <1:20 {titer} (Normal) 1-Kmf-415252:44 ANTINUCLEAR ANTIBODIES DIRECT Comments: [facility] (refer to report for specific site)refer to report for address and phone number LASHA-DIRECT Negative (Normal) Comments: Performed at: [email or web address] [address] [place], [place] [id number] Director: Omar Hood PhD, Phone: [phone] 6-Xuf-285448:44 CPK Total, Creatine Kinase Comments: [facility] [address] [place], [place], [address] CPK TOTAL 33 U/L (Normal) Range: 26-192 6-Efg-066625:44 Hemoglobin A1c Comments: [facility] [address] [place], [place], [address] HGB A1C 10.6 % (Abnormal) Range: 4.2-6.3 5-Emu-321580:44 PRANEETH AND PE, Random UR Comments: Is Patient Fasting? [facility] (refer to report for specific site)refer to report for address and phone number NOTE Comment (Normal) Comments: Protein electrophoresis scan will follow via computer,mail, or catcher plug delivery. PRANEETH RESULT,U Comment (Normal) Comments: No monoclonality detected. M-SPIKE,UR% Not Observed % (Normal) GAMMA GLOB,U 5.5 % (Normal) BETA GLOB,U 14.2 % (Normal) IPYCC-8-MTNP,U 10.8 % (Normal) SWVWR-4-LRMU,U 7.6 % (Normal) ALBUMIN,U 62.0 % (Normal) PROTEIN,UR 27.8 mg/dL (Normal) 6-Slv-848192:44 PRANEETH + Protein Elect, Serum Comments: Is Patient Fasting? [facility] (refer to report for specific site)refer to report for address and phone number NOTE: Comment (Normal) Comments: Protein electrophoresis scan will follow via computer,mail, or catcher plug delivery. PRANEETH RESULT,S Comment (Normal) Comments: No monoclonality detected. A/G RATIO 1.2 (Normal) Range: 0.7-1.7 GLOBULIN, TOTAL 2.9 g/dL (Normal) Range: 2.2-3.9 M-SPIKE g/dL (Normal) Comments: Not Observed GAMMA GLOBULIN 0.6 g/dL (Normal) Range: 0.4-1.8 BETA GLOBULIN 1.1 g/dL (Normal) Range: 0.7-1.3 HSPLG-7-QVIH 0.9 g/dL (Normal) Range: 0.4-1.0 FCELD-5-HFXN 0.3 g/dL (Normal) Range: 0.0-0.4 ALBUMIN 3.4 g/dL (Normal) Range: 2.9-4.4 IMMUNOGL M 103 mg/dL (Normal) Range: 26-217 IMMUNO A 69 mg/dL (Abnormal) Range: 87-352 IMMUNO G 538 mg/dL (Abnormal) Range: 700-1600 PROTEIN,TOTAL 6.3 g/dL (Normal) Range: 6.0-8.5 1-Mkj-851959:44 Rheumatoid Factor Comments: [facility] [address] [place], [address] RHEUMATOID FAC < 10.0 {IU/mL} (Normal) 4-Ero-300475:44 Sjogren's Antibodies A/B Comments: [facility] (refer to report for specific site)refer to report for address and phone number Anti-SS-B < 0.2 {AI} (Normal) Range: 0.0-0.9 Anti-SS-A < 0.2 {AI} (Normal) Range: 0.0-0.9 0-Tev-949025:44 Thyroid Stim Hormone (TSH) Comments: [facility] [address] [place], [address] TSH 2.71 {uIU/mL} (Normal) Range: 0.358-3.74 8-Svu-979474:44 Vitamin B12 1303 pg/mL (Abnormal) Comments: [facility] [address] [place], [address] Range: 211-911 9-Xrs-570970:44 Vitamin D,25 Hydroxy Comments: [facility] [address] [place], [address] Vitamin D 25-OH 62.4 ng/mL (Normal) Range: 29.95-100.01 Comments: Vitamin D 25(OH) Status Range Deficiency <20 ng/mL (50nmol/L) Insuffciency 20 - 30 ng/mL (50 - 75 nmol/L) Sufficiency 30 - 100 ng/mL (75 - 250 nmol/L) Toxicity >100 ng/mL (>250 nmol/L) 7-Qsm-924006:06 Basic Metabolic Profile (BMP) Comments: PLEASE FAX TO DR. CANTU [phone] Health [address] [place], [place], [address] GAP 12 (Normal) Range: 5-15 CO2 26.0 [...] A.D.A. criteria.Please note revised GLUCOSE reference range fgnetjzfd22/02/2018. 64-Nkd-86653:22 CBC W/Diff, Automated Comments: BMP TO DULCE TODD WH.CBCD, TSH, B12 TO DR. SANGEETHA IRVIN.[facility] [address] [place], [place], [address] Absolute Lymph 1.16 {X10_3/ul} (Normal) Range: 0.83-4.51 [...] pg/mL (Normal) Comments: BMP TO NUNU.[facility]AD [facility]D [facility].CBCD, TSH, B12 TO DR. SANGEETHA IRVIN.[facility] [address] [facility] [place], [place], [address] Range: 211-911 02-Mgp-79409:20 Basic Metabolic Profile (BMP) Comments: BMP TO NUNU.SHAHRZAD TODD [facility].CBCD, TSH, B12 TO [address] SANGEETHA IRVIN.[facility] [address] [facility] [place], [place], [address] GAP 9 (Normal) Range: 5-15 CO2 27.0 [...] A.D.A. criteria.Please note revised GLUCOSE reference range hbekfqaks03/02/2018. 92-Tvn-72261:20 Thyroid Stim Hormone (TSH) Comments: BMP TO DULCE TIMMONS.CBCD, TSH, B12 TO DR. SANGEETHA IRVIN.[facility] [address] [place], [place], [address] TSH 4.09 {uIU/mL} (Abnormal) Range: 0.358-3.74 54-Pdz-272872:23 Basic Metabolic Profile (BMP) Comments: [facility] [address] [place], [place], [address] GAP 7 (Normal) Range: 5-15 CO2 30.0 [...] A.D.A. criteria.Please note revised GLUCOSE reference range pevsqknao13/02/2018. 46-Wxu-999373:23 BNP,B-Type NATRIURETIC PEPTIDE Comments: [facility] [address] [place], [place], [address] B-TYPE JACKIE PEP 892.7 pg/mL (Abnormal) Range: 0-100 93-Hem-693396:23 CBC W/Diff, Automated Comments: [facility] [address] [place], [place], [address] Absolute Lymph 1.23 {X10_3/ul} (Normal) Range: 0.83-4.51 [...] W/Diff, Automated Comments: Reason for Laboratory Test .[facility] [address] [place], [address] Absolute Lymph 0.85 {X10_3/ul} (Normal) [...] 4.2-5.4 WBC 5.7 K/mm3 (Normal) Range: 4.4-11.0 11-Zmd-416535:41 Comprehensive Metabolic Profil Comments: Reason for Laboratory Test .Serial Specimen #1, #2 or #3? [facility] [address] [place], [address] GAP 8 (Normal) Range: 5-15 [...] A.D.A. criteria.Please note revised GLUCOSE reference range lgchefakp44/02/2018. 79-Fha-790235:41 LDH 224 U/L (Normal) Comments: Reason for Laboratory Test .Serial Specimen #1, #2 or #3? [facility] [address] [place], [address] Range: 84-246 9-Sjj-836464:41 URINE GENESIS CULTURE-IDENTIFICATN Comments: add to urine in lab; PATIENT NOT FASTINGPERFORMED BY: [facility] [address] [facility] [id number] Information: SRC:JUAN ([id number]) Result 1 ENTEAE (Abnormal) Comments: Enterobacter aerogenes1,000 [...] 2253 10.0 ng/mL (Abnormal) Range: 0.0-8.3 Comments: LPATH ECLIA methodologyPerformed at: [facility] [address] [id number] Director: Omar Hood PhD, Phone: [phone] CBC W/Diff, Automated Comments: [facility] [address] [place], [address] Absolute Lymph 0.95 {X10_3/ul} (Normal) [...] ADD T3F T4F TO BLOOD FROM 05-25-[address] [place], [place], [address] GAP 9 (Normal) Range: 5-15 CO2 28.0 [...] A.D.A. criteria.Please note revised GLUCOSE reference range vnwabhajv25/02/2018. :46 Digoxin Level Comments: [facility] [address] [place], [place], [address] DIG 0.71 ng/mL (Abnormal) Range: 0.80-2.00 :46 Free T3 Comments: PLEASE ADD T3F T4F TO BLOOD FROM 05-25-[address] [place], [place], [address] FREE T3 3.2 pg/mL (Normal) Range: 2.18-3.98 :46 Hemoglobin A1c Comments: [facility] [address] [place], [place], [address] HGB A1C 5.4 % (Normal) Range: 4.2-6.3 :46 Lipid Profile Comments: PLEASE ADD T3F T4F TO BLOOD FROM 05-25-[address] [place], [place], [address] VLDL 22 mg/dL (Normal) Range: 5-40 LDL [...] High Risk :46 Microalb:Creat Ratio,Random UR Comments: [facility] [address] [place], [address] MALB:CREAT 7.8 {mg/g_CRE} (Normal) MICROALBUMIN,UR 10.9 mg/L (Normal) UR CREAT 139.00 mg/dL (Normal) :46 T4 Free Direct Comments: PLEASE ADD T3F T4F TO BLOOD FROM 05-25-[address] [place], [address] T4 FREE DIRECT 1.11 ng/dL (Normal) Range: 0.76-1.46 :46 Thyroid Stim Hormone (TSH) Comments: PLEASE ADD T3F T4F TO BLOOD FROM 05-25-[address] [place] [place], [address] TSH 0.31 {uIU/mL} (Abnormal) Range: 0.358-3.74 :46 Urinalysis, Complete Comments: How was Urine Obtained? CLEAN [facility] [address] [place], [address] MUCUS, URINE 0 SEEN {/hpf} (Normal) [...] :46 Vitamin B12 368 pg/mL (Normal) Comments: [facility] [address] [place], [address] Range: 211-911 :46 Vitamin D,25 Hydroxy Comments: [facility] [address] [place], [address] Vitamin D 25-OH 64.5 ng/mL (Normal) Range: 29.95-100.01 Comments: Vitamin D 25(OH) Status Range Deficiency <20 ng/mL (50nmol/L) Insuffciency 20 - 30 ng/mL (50 - 75 nmol/L) Sufficiency 30 - 100 ng/mL (75 - 250 nmol/L) Toxicity >100 ng/mL (>250 nmol/L) 92-Eck-837956:52 Urinalysis, Complete Comments: Order Date: 04/06/18Has pt arrived? YHow was Urine Obtained? [facility] [address] [place], [address] HYALINE CAST 5-10 SEEN {/lpf} (Normal) Range: [...] (Normal) CLARITY Cloudy (Normal) COLOR Yellow (Normal) 48-Vjs-064349:30 CBC W/Diff, Automated Comments: [facility] [address] [place], [place], [address] OVALOCYTE RARE (Normal) MACROCYTE 1+ (Normal) ANISO [...] 4.2-5.4 WBC 9.1 K/mm3 (Normal) Range: 4.4-11.0 38-Azw-806140:30 Comprehensive Metabolic Profil Comments: [facility] [address] [place], [address] GAP 12 (Normal) Range: 5-15 [...] Please note revised GLUCOSE reference range /02/2018. 60-Qdn-231053:30 Lactic Acid Comments: Yes/No query for Sepsis Lactate Rule [facility] [address] [place], [address] LACTIC ACID 6.7 mmol/L (Abnormal) Range: 0.4-2.0 Comments: Critical Result(s) Called Lisa RIVERA at: 20:23:2207 by: BRITTANY TORRES 23-Uvt-150537:30 Partial Thromboplast Time Comments: [facility] [address] [place], [address] PTT 41.3 s (Abnormal) Range: 24.1-36.2 66-Yab-991592:30 Prothrombin Time w/INR Comments: [place] [address] [address] [place], [address] INR 2.3 (Normal) PROTIME 25.6 s (Abnormal) Range: 11.7-14.9 15-Aqv-299709:30 Troponin-I Comments: [place] [address] [place], [address] TROPONIN-I 0.046 ng/mL (Abnormal) Comments: TROPONIN-I [...] angiographical evidence. PLEASE NOTE: REFERENCE RANGES EDITED 02/06/1805-Apr-201840-Nue-858007:08 Ammonia Comments: [place], [address] AMMONIA 20.0 umol/L (Normal) Range: 11-32 92-Tus-029900:08 CBC-Complete Blood Cnt No Diff Comments: [place] [address] [place], [address] MPV 10.6 fL (Normal) Range: 6.2-12.0 [...] 4.2-5.4 WBC 6.6 K/mm3 (Normal) Range: 4.4-11.0 09-Uhx-784079:08 Comprehensive Metabolic Profil Comments: [facility] [address] [place], [address] GAP 9 (Normal) Range: 5-15 CO2 35.0 [...] Comments: Please note revised GLUCOSE reference range qoztvqjed66/02/2018. 40-Con-219937:08 Differential Comment Comments: [facility] [address] [place], [address] SMEAR COMMENT COMMENT (Normal) Comments: SLIDE SCANNED - 1+ ANISO NOTED. :55 Urinalysis, Complete Comments: How was Urine Obtained? [facility] [address] [place], [address] AMORPHOUS 2+ (Normal) HYALINE CAST 5-10 SEEN [...] (Normal) :55 Urine Drug Screen (VISTA) Comments: [facility] [address] [place], [address] TO BE CONFIRMED (Normal) Comments: CONFIRMATORY TESTING [...] TESTING MUST BE ORDERED SEPARATELY. USE TESTMNEMONIC: [facility] 89-Dnp-30558:59 Bedside Glucose Comments: [facility] [address] [place] [address] BEDSIDE GLU 169 mg/dL (Abnormal) Range: 70-110 Comments: MANAGEMENT OF PATIENT CARE PER NURSING PROTOCOL 71-Wyr-86220:35 Basic Metabolic Profile (BMP) Comments: [facility] [address] [place], [address] GAP 16 (Abnormal) Range: 5-15 CO2 15.0 mmol/L (Abnormal) Range: 21.0-32.0 CL 104 mmol/L (Normal) Range: 98-107 K 6.2 mmol/L (Abnormal) Range: 3.5-5.1 Comments: Critical Result(s) Called at: 01:06:28 03/08/2018 by:ANSLEY STANFORD,CARE ATTENDANT NA 135 mmol/L (Abnormal) Range: 136-145 CA [...] A.D.A. criteria.Please note revised GLUCOSE reference range meufczoop34/02/2018. 41-Mhn-457947:59 Acetaminophen (Tylenol) Level Comments: [facility] [address] [place], [address] ACETAMINOPHEN 4.9 ug/mL (Abnormal) Range: 10.0-30.0 Comments: Slight Icterus, Result may be falsely decreased. 55-Rjn-175898:59 Acetone Serum Comments: [place] [address] [place], [address] ACETONE SERUM NEGATIVE (Normal) :59 Alcohol, Blood (Medical)-Serum Comments: [place] [address] [place], [address] SERUM ETOH 8.0 mg/dL (Normal) Comments: The serum:whole blood ethanol ratio is approximately 1.14and varies slightly with hematocrit.Medical Alcohol reference interval and critical value innon-tolerant individuals; 50 - 100 Impairment 100 Intoxication 100 - 250 Severe Poisoning 250 - 400 Deep/possible fatal coma :59 Digoxin Level Comments: [address] [place], [address] DIG 0.32 ng/mL (Abnormal) Range: 0.80-2.00 48-Uvm-905629:59 Lactic Acid Comments: Yes/No query for Sepsis Lactate Rule [place] [address] [place], [address] LACTIC ACID 12.4 mmol/L (Abnormal) Range: 0.4-2.0 Comments: Critical Result(s) Called at: 00:52:58 03/08/2018 by:ANSLEY OWENS RN ED 14-Qie-783082:59 Partial Thromboplast Time Comments: [place] [address] [place], [address] PTT 33.7 s (Normal) Range: 24.1-36.2 94-Osn-641062:59 Prothrombin Time w/INR Comments: [place] [address] [place], [address] INR 2.4 (Normal) PROTIME 26.4 s (Abnormal) Range: 11.7-14.9 76-Rpi-015091:59 Salicylate Comments: [place] [address] [place], [address] SALICYLATE < 1.7 mg/dL (Abnormal) Range: 2.8-20.0 Comments: Slight Icterus, Result may be falsely decreased. 87-Tek-496101:02 Blood Gases by [facility] Comments: [facility] [address] [place] [address] SO2 ISTAT 99 % (Normal) Range: [...] Radial (Normal) BLD GAS TYPE ART (Normal) 27-Xlb-420819:52 Bedside Glucose [facility]: [facility] [place] [address] [place] [address] BEDSIDE GLU 214 mg/dL (Abnormal) Range: 70-110 Comments: MANAGEMENT OF PATIENT CARE PER NURSING PROTOCOL 63-Qkh-656423:37 Basic Metabolic Profile (BMP) Comments: [place] [address] [place], [address] GAP 19 (Abnormal) Range: 5-15 CO2 [...] A.D.A. criteria.Please note revised GLUCOSE reference range hfynepmtw27/02/2018. 02-Qgu-695206:37 CBC W/Diff, Automated Comments: [facility] [address] [place], [address] CRENATED RBC 1+ (Normal) ANISO 1+ (Normal) [...] K/mm3 (Normal) Range: 4.4-11.0 :37 Lipase Comments: [facility] [address] [place], [place], [address] LIPASE 86 U/L (Normal) Range: 73-393 53-Jqz-161414:37 Liver Profile Comments: [address] [place], [place], [address] D BILI 1.07 mg/dL (Abnormal) Range: 0.00-0.30 T BILI 2.40 mg/dL (Abnormal) Range: 0.20-1.00 ALT 120 U/L (Abnormal) Range: 13-56 ALK P 94 U/L (Normal) Range: 45-117 AST 149 U/L (Abnormal) Range: 15-37 Comments: Moderate Hemolysis, Result may be falsely increased. GLOB 2.9 g/dL (Normal) Range: 2.2-4.2 ALB 3.0 g/dL (Abnormal) Range: 3.2-5.0 T PROT 5.9 g/dL (Abnormal) Range: 6.4-8.2 :37 Magnesium Comments: [address] [place], [place], [id number] MG 2.0 mg/dL (Normal) Range: 1.6-2.6 Comments: Moderate Hemolysis, Result may be falsely increased. [id number] Troponin-I Comments: [address] [place], [place], [id number] TROPONIN-I 0.081 ng/mL (Abnormal) Comments: TROPONIN-I EXPECTED [...] angiographical evidence. PLEASE NOTE: REFERENCE RANGES EDITED 02/06/1824-Feb-[id number] CMV ANTIBODY ([id number]) Comments: today; PATIENT NOT FASTINGPERFORMED BY: [employer] [id number] [facility] [id number] Cytomegalovirus (CMV) Ab, IgG <0.60 U/mL (Normal) Range: 0.00-0.59 Comments: Negative <0.60 Equivocal 0.60 - 0.69 Positive >0.69 [id number] HEPATITIS PANEL ([id number]) Comments: today; PATIENT NOT FASTINGPERFORMED BY: [employer] [id number] [facility] [id number] Hep C Virus Ab <0.1 {s/co_ratio} (Normal) Range: 0.0-0.9 Comments: Negative: < 0.8 Indeterminate: 0.8 - 0.9 Positive: > 0.9 . The CDC recommends that a positive HCV antibody result be followed up with a HCV Nucleic Acid Amplification test ([id number]). Hep B Core Ab, IgM Negative (Normal) HBsAg Screen Negative (Normal) Hep A Ab, IgM Negative (Normal) [id number] EBV Panel (13854) Comments: today; PATIENT NOT FASTINGPERFORMED BY: Good Times RestaurantsSaint Clare's Hospital at Boonton TownshipOjaago6614 [facility] [id number] Interpretation: SPRCS (Normal) Comments: EBV Interpretation Chart [...] <36.0 Equivocal 36.0 - 43.9 Positive >43.9 27-Mud-425952:19 CBC W/Diff, Automated Comments: Order Date: 02/23/18Order Info: 0184-1 - CBCDOrder Info: 91911-4 - [facility] [address]juevfxqb8[address] [place], [address] MACROCYTE 1+ (Normal) ANISO RARE (Normal) Absolute [...] 4.2-5.4 WBC 6.9 K/mm3 (Normal) Range: 4.4-11.0 86-Ptp-588346:19 Comprehensive Metabolic Profil Comments: Order Date: 02/23/18Order Info: 0786-1 - CMPOrder Info: 1798-8 - AMYOrder Info: 3040-3 - [facility] Tfmzfmvfqy[address] [place], [place], [address] GAP 11 (Normal) Range: 5-15 CO2 25.0 [...] A.D.A. criteria.Please note revised GLUCOSE reference range efhrjcymi10/02/2018. 18-Apv-264416:19 Erythrocyte Sed Rate Comments: Order Date: 02/23/18Order Info: 0184-1 - CBCDOrder Info: 17324-6 - SEDWilson [facility] [address]acczctoug6[address] [place], [address] SED RATE 16 mm/h (Normal) Range: 0-30 65-Nrh-968054:19 Lipase (24711) Comments: Order Date: 02/23/18Order Info: 0786- 1 - CMPOrder Info: 1798-8 - AMYOrder Info: 3040-3 - LIPASEWilson Health Xbwagvmfhj7313 [place], [address] LIPASE 92 U/L (Normal) Range: 73-393 27-Psp-302094:19 Amylase (27489) Comments: Order Date: 02/23/18Order Info: 0786- 1 - CMPOrder Info: 179-8 - AMYOrder Info: 3040-3 - LIPASEWilson Health Ltskmcbpot8577 [place], [address] ARIAN 27 U/L (Normal) Range: 25-115 0-Mgm-758925:15 Amylase Comments: CMP, CBCD IS FOR DR ORONA IS FOR [facility] Uceaymbsvk7008 [place], [address] ARIAN 29 U/L (Normal) Range: 25-115 2-Gky-596199:15 CBC W/Diff, Automated Comments: CMP, CBCD IS FOR DR ORONA IS FOR [facility] Hjlbcarovr3617 [place], [address] ANISO 1+ (Normal) Absolute Lymph 0.41 {X10_3/ul} [...] 4.2-5.4 WBC 5.3 K/mm3 (Normal) Range: 4.4-11.0 3-Mfd-668711:15 Comprehensive Metabolic Profil Comments: CMP, CBCD IS FOR DR ORONA IS FOR [facility]ENTERMercedesFirelands [facility] Dvyvdqxupz0274 [address] [place], [place], [address] GAP 9 (Normal) Range: 5-15 CO2 27.0 [...] A.D.A. criteria.Please note revised GLUCOSE reference range noqcmtthr80/02/2018. 8-Mkn-521136:15 Digoxin Level Comments: CMP, CBCD IS FOR DR ORONA IS FOR [facility] Tdxnomvyra2017 [place], [address] DIG 0.92 ng/mL (Normal) Range: 0.80-2.00 9-Sji-519852:15 Lipase Comments: CMP, CBCD IS FOR DR ORONA IS FOR [facility] Pvbdyeoanm8455 [address] [place], [place], [address](847) LIPASE 101 U/L (Normal) Range: 73-393 4-Yuh-584909:15 Lipid Profile Comments: CMP, CBCD IS FOR DR ORONA IS FOR [facility] Dwsivhrhks5240 [place], [address](595) VLDL 15 mg/dL (Normal) Range: 5-40 LDL [...] 200-240 mg/dL Borderline >240 mg/dL High Risk 1-Rzb-979428:15 Magnesium Comments: CMP, CBCD IS FOR DR ORONA IS FOR [facility] Ibufctwlsn0171 [place], [address] MG 1.8 mg/dL (Normal) Range: 1.6-2.6 4-Pnz-614628:15 Microalb:Creat Ratio,Random UR Comments: CMP, CBCD IS FOR DR ORONA IS FOR [facility] Bawdyjtnsl0797 [place], [address] MALB:CREAT 34.3 {mg/g_CRE} (Abnormal) MICROALBUMIN,UR 58.6 mg/L (Normal) UR CREAT 171.00 mg/dL (Normal) 6-Gvx-568973:15 Thyroid Stim Hormone (TSH) Comments: CMP, CBCD IS FOR DR ORONA IS FOR [facility] Dycflhbpyz7208 [place], [address] TSH 1.84 {uIU/mL} (Normal) Range: 0.358-3.74 6-Yur-695292:15 Vitamin B12 383 pg/mL (Normal) Comments: CMP, CBCD IS FOR DR ORONA IS FOR [facility] Xroplnqvkl7782 [place], [address] Range: 211-911 1-Tev-922511:15 Vitamin D,25 Hydroxy Comments: CMP, CBCD IS FOR DR ORONA IS FOR DR [facility] Ibphfdapln2055 [address] [place], [address] Vitamin D 25-OH 72.0 ng/mL (Normal) Range: 29.95-100.01 Comments: Vitamin D 25(OH) Status Range Deficiency <20 ng/mL (50nmol/L) Insuffciency 20 - 30 ng/mL (50 - 75 nmol/L) Sufficiency 30 - 100 ng/mL (75 - 250 nmol/L) Toxicity >100 ng/mL (>250 nmol/L) 38-Esi-447153:14 Blood Glucose , Office (13470) Blood Glucose , Office 137 (Normal) 37-Hck-846951:14 HgA1C , Office (39509) HgA1C , Office 6.1 % (Normal) Range: 4.6 - 7.1 35-Ict-91011:35 CBC W/Diff, Automated Comments: [facility] Gexswopibk2719 [address] [place], [address] Absolute Lymph 1.30 {X10_3/ul} (Normal) Range: 0.83-4.51 [...] 4.2-5.4 WBC 4.2 K/mm3 (Abnormal) Range: 4.4-11.0 99-Vgc-45875:33 Comprehensive Metabolic Profil Comments: Reason for Laboratory Test [facility] Yjdgezpbay4522 [address] [place], [place], [address] GAP 8 (Normal) Range: 5-15 CO2 31.0 mmol/L (Normal) Range: 21.0-32.0 CL 99 mmol/L (Normal) Range: 98-107 K 3.4 mmol/L (Abnormal) Range: 3.5-5.1 NA 138 mmol/L (Normal) Range: 136-145 T BILI 0.70 mg/dL (Normal) Range: 0.20-1.00 ALT 27 U/L (Normal) Range: 13-56 Comments: Please note revised ALT reference range ksqgnmkal94/28/2018. ALK P 102 U/L (Normal) Range: 45-117 [...] A.D.A. criteria.Please note revised GLUCOSE reference range mjgkuuvjy59/02/2018. 67-Tit-99843:33 LDH 198 U/L (Normal) Comments: Reason for Laboratory Test OVSerial Specimen #1, #2 or #3? 1WFire[facility] [address]ztglfcoyr[address] [place], [place], [address] Range: 84-246 76-Dyr-255549:15 Culture, Urine Comments: [facility] Sbdtgbbyiy[address] [place], [place], [address] CUUR See Note (Normal) Comments: VERBAL ORDER DR. IRVIN'S OFFICE Urine CultureORGANISM 1: Mixed Gram Positive OrganismsColony Count 11,000-25,000MIX CULTURE Mixed contaminants. Submit a new specimen if indicated. 83-Siq-997444:11 CBC W/Diff, Automated Comments: [facility] Jgdwhdvdwk2135 [address] [place], [place], [address] Absolute Lymph 1.34 {X10_3/ul} (Normal) Range: 0.83-4.51 [...] 4.2-5.4 WBC 5.4 K/mm3 (Normal) Range: 4.4-11.0 96-Fqv-458020:11 Comprehensive Metabolic Profil Comments: Comments: [facility] Zpightsqeu5613 [address] [place], [place], [address] GAP 7 (Normal) Range: 5-15 CO2 28.0 [...] A.D.A. criteria.Please note revised GLUCOSE reference range eujmjhmjx20/02/2018. 92-Nft-624755:10 Urinalysis, Complete Comments: ORDERED UACDR.JACINDA ORDERED CMP AND CBCDComments: clean catchComments: clean catchHow was Urine Obtained? 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 Comments: Comments: use blood in [facility] Avawdjazkc4716 [place], [address] HCGSQUAL NEGATIVE {Negative} (Normal) Range: 0-9 Nonpreg HCG Qual triggr 2 m[iU]/mL (Normal) 3-Ctn-221477:41 Basic Metabolic Profile (BMP) Comments: [facility] Ivdxffjrst5277 [address] [place], [address] GAP 10 (Normal) Range: 5-15 CO2 28.0 [...] A.D.A. criteria.Please note revised GLUCOSE reference range eifdvegdr46/02/2018. 2-Mpf-591924:41 CBC-Complete Blood Cnt No Diff Comments: [facility] Ypsykpzapo9710 [facility] [address] [place], [place], [address] MPV 9.6 fL (Normal) Range: 6.2-12.0 PLT [...] 4.2-5.4 WBC 8.7 K/mm3 (Normal) Range: 4.4-11.0 8-Swj-897434:41 Prothrombin Time w/INR Comments: [facility] Hxbjkxqrvo6545 [place], [address] INR 1.0 (Normal) PROTIME 12.9 s (Normal) Range: 11.7-14.9 03-Nov-20179:00 Culture, Urine Comments: [facility] Lmujjvukmm0846 [place], [address] CUUR See Note (Normal) Comments: [...] &lt ;=20 S(NF) indicates non-formulary drug at [facility]. Approval by Infectious Disease Specialist required before non- formulary drugs may be ordered and/or dispensed. :27 AFP, Tumor Marker Comments: Is Patient ? NPatient's Weight (LBS.): 124Number of Fetuses: 0[facility] (refer to report for specific site)refer to report for address and phone number AFP TUMOR 2253 6.8 ng/mL (Normal) Range: 0.0-8.3 Comments: Khanh ECLIA methodologyPerformed at: CB - [facility] [address] [id number] Director: Omar Hood PhD, Phone: [phone] 62-Unx-76320:27 CBC W/Diff, Automated Comments: [facility] Quzrcuuslj3596 [place], [address] Absolute Lymph 1.47 {X10_3/ul} (Normal) [...] 4.2-5.4 WBC 6.0 K/mm3 (Normal) Range: 4.4-11.0 95-Dni-06434:27 Comprehensive Metabolic Profil Comments: [facility] Wufbtwsvso8343 [address] [place], [place], [address] GAP 9 (Normal) Range: 5-15 CO2 28.0 [...] Range: 70-110 :27 Microalb:Creat Ratio,Random UR Comments: [facility] [address]nlmq[address] [place], [place], [address] MALB:CREAT 17.4 {mg/g_CRE} (Normal) MICROALBUMIN,UR 37.5 mg/L (Normal) UR CREAT 215.00 mg/dL (Normal) :40 CBC W/Diff, Automated Comments: [facility] [address]emwsz[address] [place], [place], [address] Absolute Lymph 1.60 {X10_3/ul} (Normal) Range: 0.83-4.51 [...] 4.2-5.4 WBC 10.9 K/mm3 (Normal) Range: 4.4-11.0 67-Zpx-38084:39 Comprehensive Metabolic Profil Comments: Order Date: 12/06/16Order Info: 0786-1 - *CMP Complete Metabolic PanelWFirelands Regional Medical Center South Campus Vwwwmwvftf0207 [place], [address] GAP 10 (Normal) Range: 5-15 CO2 27.0 [...] per A.D.A. criteria. :15 Culture, Urine Comments: [facility] Mhmodqeupw7977 [place], [address] CUUR See Note (Normal) Comments: Urine CultureORGANISM [...] $ <=20 S(NF) indicates non-formulary drug at [facility]. Approval by Infectious Disease Specialist required before non-formulary drugs may be ordered and/or dispensed. :35 HgA1C , Office (87285) HgA1C , Office 6.5 % (Normal) Range: 4.6 - 7.1 :07 AFP, Tumor Marker Comments: Is Patient ? [facility] (refer to report for specific site)refer to report for address and phone number AFP TUMOR 2253 8.5 ng/mL (Abnormal) Range: 0.0-8.3 Comments: Khanh ECLIA methodologyPerformed at: - [facility] [address] [id number] Director: Omar Hood PhD, Phone: [phone] :[phone] CBC W/Diff, Automated Comments: [facility] Cgvonukcif8404 [place], [address] Absolute Lymph 1.17 {X10_3/ul} (Normal) [...] Range: 4.4-11.0 :07 Comprehensive Metabolic Profil Comments: [facility] Ifjlosigqx112[address] [place], [place], [address] GAP 9 (Normal) Range: 5-15 CO2 28.0 [...] the [place] Food and Drug Administration.Performed at: [facility] n14[address] [place], [place] [id number] Director: Zia Jarvis MD, Phone: [phone] INS RES/DIAB RK . (Normal) LDL SIZE [...] . (Normal) :07 Vitamin D,25 Hydroxy Comments: [facility] [address]nt[address] [place], [address] Vitamin D 25-OH 61.8 ng/mL (Normal) Comments: Vitamin D 25(OH) Status Range Deficiency <20 ng/mL (50nmol/L) Insuffciency 20 - 30 ng/mL (50 - 75 nmol/L) Sufficiency 30 - 100 ng/mL (75 - 250 nmol/L) Toxicity >100 ng/mL (>250 nmol/L) :48 Liver Profile Comments: [facility] [address] [place], [address] D BILI 0.14 mg/dL (Normal) Range: 0.00-0.30 T BILI 0.50 mg/dL (Normal) Range: 0.20-1.00 ALT 57 U/L (Normal) Range: 12-78 ALK P 94 U/L (Normal) Range: 45-117 AST 40 U/L (Abnormal) Range: 15-37 GLOB 2.8 g/dL (Normal) Range: 2.3-3.5 ALB 3.9 g/dL (Normal) Range: 3.4-5.0 T PROT 6.7 g/dL (Normal) Range: 6.4-8.2 :45 Potassium Comments: [facility] [address] [place], [address] K 4.3 mmol/L (Normal) Range: 3.5-5.1 :35 CBC W/Diff, Automated Comments: [facility] [address]fzx[address] [place], [place], [address] Absolute Lymph 1.24 {X10_3/ul} (Normal) Range: 0.83-4.51 [...] Range: 4.4-11.0 :35 Comprehensive Metabolic Profil Comments: [facility] Xijhxfatnn2[address] [place], [place], [address] GAP 10 (Normal) Range: 5-15 CO2 31.0 [...] 126 mg/dLsuggests DIABETES MELLITUS per A.D.A. criteria. 03-Nyo-59575:0 ASPIRATION (SLIDES ONLY) See Note (Normal) Comments: [facility] [address]ueleeswfh5539 [facility] [place], [address] 0 Comments: Patient: IFEOMA ASHRAF : 1965 (52/F) Acct Num: [id number] Phys: Janelle KING,Alejandro Unit Num: [id number] Loc: LABSPEC Specimen: [id number] Received: 03/18/17 - 1126 Spec Ty pe: ASPIRATION TISSUES TISSUES: COMMENT Correlation with clinical, radiologic findings and appropriate follow up are necessary. CYTOLOGY GROSS Received are ten smears labeled wi th the patient's name and designated per the requisition as left thyroid FNA. Submitted for staining. / 03/18/17 TC:5 CPT: 64066 CYTOLOGY STUDY Slides are reviewed. The specimen [...] <signature on file> :30 HEPATITIS C ANTIBODY (67123) Comments: PATIENT NOT FASTINGPERFORMED BY: Good Times RestaurantsSaint Clare's Hospital at Boonton TownshipFbzfst9908 [facility] [id number] Hep C Virus Ab <0.1 {s/co_ratio} (Normal) Range: 0.0-0.9 Comments: Negative: < 0.8 Indeterminate: 0.8 - 0.9 Positive: > 0.9 . The CDC recommends that a positive HCV antibody result be followed up with a HCV Nucleic Acid Amplification test (296935). :30 Potassium Serum (60566) Comments: PATIENT NOT FASTINGPERFORMED BY: [facility] Times RestaurantsSaint Clare[facility] Hospital at Boont[facility] TownshipEodieb7964 [facility] [id number] Potassium, Serum 4.8 mmol/L (Normal) Range: 3.5-5.2 :29 HgA1C , Office (97475) HgA1C , Office 7.9 % (Abnormal) Range: 4.6 - 7.1 :53 CBC W/Diff, Automated Comments: [facility] Ugexwlreso6732 [address]ing [facility] [place], [address] Absolute Lymph 1.57 {X10_3/ul} (Normal) [...] 4.2-5.4 WBC 4.8 K/mm3 (Normal) Range: 4.4-11.0 15-Qvz-85859:53 Comprehensive Metabolic Profil Comments: [facility] Ovhacaatdc4941 [place], [address] GAP 11 (Normal) Range: 5-15 CO2 32.0 [...] per A.D.A. criteria. :53 Lipid Profile Comments: [facility] Eqfgoieuks90[address] [place], [place], [address] VLDL 37 mg/dL (Normal) Range: 5-40 LDL [...] High Risk :53 Microalb:Creat Ratio,Random UR Comments: [facility] Cuzvwexoow67[address] [place], [place], [address] MALB:CREAT 19.7 {mg/g_CRE} (Normal) MICROALBUMIN,UR 27.8 mg/L (Normal) UR CREAT 141.00 mg/dL (Normal) :53 Thyroid Stim Hormone (TSH) Comments: [facility] [address] [place], [address] TSH 2.39 {uIU/mL} (Normal) Range: 0.358-3.74 :53 Vitamin D,25 Hydroxy Comments: [facility] [address] [place], [address] Vitamin D 25-OH 79.9 ng/mL (Normal) Comments: Vitamin D 25(OH) Status Range Deficiency <20 ng/mL (50nmol/L) Insuffciency 20 - 30 ng/mL (50 - 75 nmol/L) Sufficiency 30 - 100 ng/mL (75 - 250 nmol/L) Toxicity >100 ng/mL (>250 nmol/L) 22-Ipt-168956:08 CBC W/Diff, Automated Comments: [facility] [address] [place], [address] Absolute Lymph 2.04 {X10_3/ul} (Normal) Range: [...] 4.2-5.4 WBC 9.0 K/mm3 (Normal) Range: 4.4-11.0 53-Wgm-460532:08 Comprehensive Metabolic Profil Comments: [facility] Xhqydlowqz33[address] [place], [address] GAP 9 (Normal) Range: 5-15 CO2 27.0 [...] 126 mg/dLsuggests DIABETES MELLITUS per A.D.A. criteria. 93-Mgs-747277:00 Culture, Urine Comments: [facility] [address]xwuxkzhee[address] [place], [place], [address] CUUR See Note (Normal) Comments: Urine CultureORGANISM 1: Mixed Gram Positive OrganismsColony Count >100,000MIX CULTURE Mixed contaminants. Submit a new specimen if indicated. 7-Cyk-459413:25 CBC W/Diff, Auto - EPLAB Comments: At [facility] Medical Oncologypatients receive CBC w/auto Differential ONLY. Physicianwill place an order for a manual differential or Pathologistreview at his discretion. [facility]. [address] [place] [address] [address] BIODIESEL TECHNOLOGY MANAGER: MATEO CASTANEDA DO PH:[phone] Regional Medical Center South Campus Zbccxevjfr20[address] [place], [place], [address] Absolute Lymph 1.42 {X10_3/uL} (Normal) Range: 0.83-4.51 [...] 4.2-5.4 WBC 6.3 K/mm3 (Normal) Range: 4.4-11.0 4-Ldw-380865:25 Comprehensive Metabolic Profil Comments: Order Date: 06/07/16Order Date: 06/07/16erial Specimen #1, #2 or #3? 1[facility] Ibynvkbdvk4[address] [place], [address] GAP 11 (Normal) Range: 5-15 CO2 24.0 [...] 200 mg/dLsuggests DIABETES MELLITUS per A.D.A. criteria. 0-Kmw-665241:25 LDH 208 U/L (Normal) Comments: Order Date: 09/12/16Order Date: 09/12/16Serial Specimen #1, #2 or #3? 1[facility] Kfbmmaevat28[address] [place], [address] Range: 84-246 1-Kef-176976:25 Uric Acid Comments: Order Date: 06/07/16Order Date: 06/07/16Serial Specimen #1, #2 or #3? 1[facility] Wdtaxmrepo3483 [address] [place], [address] URIC 3.8 mg/dL (Normal) Range: 2.6-6.0 Comments: The drugs N-Acetylcysteine and Metamizole may falsely deressthis assay. :10 HgA1C , Office (27801) HgA1C , Office 8.0 % (Abnormal) Range: 4.6 - 7.1 :10 Blood Glucose , Office (96481) Blood Glucose , Office 223 (Normal) :24 AFP, Tumor Marker Comments: Is Patient ? [facility] (refer to report for specific site)refer to report for address and phone number AFP TUMOR 2253 8.5 ng/mL (Abnormal) Range: 0.0-8.3 Comments: LPATH ECLIA methodologyPerformed at: CB - [facility] [address] [id number] Director: Omar Hood PhD, Phone: [phone] :[phone] CBC W/Diff, Automated Comments: [facility] Voxvexfqwv9401 [address] [place], [address] Absolute Lymph 1.35 {X10_3/ul} (Normal) Range: 0.83-4.51 [...] 4.2-5.4 WBC 4.1 K/mm3 (Abnormal) Range: 4.4-11.0 99-Mro-36409:24 Comprehensive Metabolic Profil Comments: [facility] Zgvyrbfcgh3042 Ping [facility]. [place], [place], [address] GAP 9 (Normal) Range: 5-15 CO2 27.0 [...] 126 mg/dLsuggests DIABETES MELLITUS per A.D.A. criteria. 04-Ciw-07597:24 NMR Lipoprofile Comments: [facility] (refer to report [...] US Food and Drug Administration.Performed at: [facility] [address] [place] [id number] Director: Zia Jarvis MD, Phone: [phone] INS RES/DIAB RK . (Normal) LDL SIZE [...] mg/dL (Normal) Range: 100-199 LIPIDS . (Normal) 97-Vfr-661807:53 CBC W/Diff, Automated Comments: [facility] [address]myzjzylu3[address] [place], [address] Absolute Lymph 1.41 {X10_3/ul} (Normal) Range: 0.83-4.51 [...] 4.2-5.4 WBC 12.2 K/mm3 (Abnormal) Range: 4.4-11.0 62-Kru-125724:53 Comprehensive Metabolic Profil Comments: [facility] Bmmuklfglh0287 [place], [place], [address] GAP 13 (Normal) Range: 5-15 CO2 24.0 [...] 200 mg/dLsuggests DIABETES MELLITUS per A.D.A. criteria. 88-Ykf-64335:42 CBC W/Diff, Automated Comments: [facility] Pzbqwuahkh4822 [place], [address] Absolute Lymph 1.92 {X10_3/ul} (Normal) Range: 0.83-4.51 [...] Range: 4.4-11.0 :42 Comprehensive Metabolic Profil Comments: [facility] Cipfqrtsif9045 [place], [address] GAP 11 (Normal) Range: 5-15 CO2 25.0 [...] :55 Magnesium Comments: Order Date: 06/07/16Order Date: 06/07/16[facility] Y[address]kkphfehu[address] [place], [address] MG 2.0 mg/dL (Normal) Range: 1.8-2.4 :57 CBC W/Diff, Auto - EPLAB Comments: At [facility] Medical Oncologypatients receive CBC w/auto Differential ONLY. Physicianwill place an order for a manual differential or Pathologistreview at his discretion. [facility] OUTPATIENT [facility]. [address] [place] [address] [address] BIODIESEL TECHNOLOGY MANAGER: MATEO CASTANEDA DO PH:[phone] Health Xvicphkcky4828 [address] [place], [place], [address] Absolute Lymph 1.38 {X10_3/uL} (Normal) Range: 0.83-4.51 [...] Profil Comments: Order Date: 06/07/16OV Order #: [id number] Specimen #1, #2 or #3? 1 [id number] Health Auwdnuhaqs0933 [place], [address] GAP 13 (Normal) Range: 5-15 [...] (Normal) Comments: Order Date: 06/07/16OV Order #: [id number] Specimen #1, #2 or #3? 1 [id number] Health Dgdaoqqota3575 [place], [address] Range: 84-246 :56 Magnesium Comments: Order Date: 06/07/16OV Order #: [id number] Specimen #1, #2 or #3? [id number] [place] [address] [address]ew[address]dv[address] [place], [address] MG 1.5 mg/dL (Abnormal) Range: 1.8-2.4 :56 Uric Acid Comments: Order Date: 06/07/16OV Order #: [id number] Specimen #1, #2 or #3? [id number] [place] [address] Daxdtxsfeu66[address] [place], [address] URIC 4.8 mg/dL (Normal) Range: 2.6-6.0 Comments: The drugs N-Acetylcysteine and Metamizole may falsely deressthis assay. :30 Liver Profile Comments: [facility] Ivbgqfkyqy03[address] [place], [address](650) D BILI 0.13 mg/dL (Normal) Range: 0.00-0.30 T BILI 0.40 mg/dL (Normal) Range: 0.20-1.00 ALT 60 U/L (Normal) Range: 12-78 ALK P 126 U/L (Normal) Range: 50-136 AST 37 U/L (Normal) Range: 15-37 GLOB 2.7 g/dL (Normal) Range: 2.3-3.5 ALB 3.4 g/dL (Normal) Range: 3.4-5.0 T PROT 6.1 g/dL (Abnormal) Range: 6.4-8.2 :33 CBC W/AUTO DIFF WBC Comments: PATIENT NOT FASTINGPERFORMED BY: [facility] Iiqvci2819 [facility] [id number] Information: NURSE DRAW (56585) Immature Grans (Abs) 0.0 {x10E3/uL} (Normal) Range: [...] PANEL, COMPREHENSIVE Comments: PATIENT NOT FASTINGPERFORMED BY: LabCoSaint Clare's Hospital at Bo[facility]on TownshipKoyawf2256 [facility] [id number] (35887) ALT (SGPT) 41 [iU]/L (Abnormal) Range: 0-32 [...] (Abnormal) Range: 65-99 :09 HgA1C , Office (00880) HgA1C , Office 7.0 % (Normal) Range: 4.6 - 7.1 :14 AFP, Tumor Marker Comments: Is Patient ? [facility] (refer to report for specific site)refer to report for address and phone number AFP TUMOR 2253 7.7 ng/mL (Normal) Range: 0.0-8.3 Comments: Khanh ECLIA methodologyPerformed at: CB - [facility] [place] [id number] Director: Omar Hood PhD, Phone: [phone] :[phone] CBC W/Diff, Automated Comments: [facility] Idfbvahjgk8285 [facility] [place], [address] ; will review on 05/17 [...] 4.2-5.4 WBC 4.3 K/mm3 (Abnormal) Range: 4.4-11.0 50-Vvt-50158:14 Comprehensive Metabolic Profil Comments: [facility] Ddfzlsencu30[address] [place], [place], [address] GAP 7 (Normal) Range: 5-15 CO2 28.0 [...] per A.D.A. criteria. :14 Lipid Profile Comments: [facility] Bzjoqitrzo67[address] [place], [place], [address] VLDL 36 mg/dL (Normal) Range: 5-40 LDL [...] High Risk :14 Microalb:Creat Ratio,Random UR Comments: [facility] [address]xdlrqblrc[address] [place], [place], [address] ; will review on 05/17 MALB:CREAT 14.6 {mg/g_CRE} (Normal) MICROALBUMIN,UR 23.4 mg/L (Normal) UR CREAT 160.00 mg/dL (Normal) :14 Thyroid Stim Hormone (TSH) Comments: [facility] [id number] [place], [address] TSH 1.89 {uIU/mL} (Normal) Range: 0.358-3.74 :14 Vitamin D,25 Hydroxy Comments: [facility] [id number] [place], [address] ; will review on 05/17 Vitamin D 25-OH 53.2 ng/mL (Normal) Comments: Vitamin D 25(OH) Status Range Deficiency <20 ng/mL (50nmol/L) Insuffciency 20 - 30 ng/mL (50 - 75 nmol/L) Sufficiency 30 - 100 ng/mL (75 - 250 nmol/L) Toxicity >100 ng/mL (>250 nmol/L) :23 CBC W/Diff, Automated Comments: [facility] [id number] [place], [address] Absolute Lymph 1.65 {X10_3/ul} (Normal) Range: [...] 4.2-5.4 WBC 4.4 K/mm3 (Normal) Range: 4.4-11.0 [id number] Comprehensive Metabolic Profil Comments: [facility] [id number] [place], [address] GAP 9 (Normal) Range: 5-15 CO2 30.0 [...] 126 mg/dLsuggests DIABETES MELLITUS per A.D.A. criteria. [id number] HgA1C , Office (40488) HgA1C , Office 8.5 % (Abnormal) Range: 4.6 - 7.1 :15 CBC W/Diff, Automated Comments: [facility] [id number] [place], [place], [id number] Absolute Lymph 1.76 {X10_3/ul} (Normal) Range: 0.83-4.51 [...] Range: 4.4-11.0 :15 Comprehensive Metabolic Profil Comments: [facility] [id number] [place], [address] GAP 13 (Normal) Range: 5-15 [...] per A.D.A. criteria. :15 Lipid Profile Comments: [facility] [id number] [place], [place], [id number] VLDL 45 mg/dL (Abnormal) Range: 5-40 LDL [...] High Risk :15 Vitamin D,25 Hydroxy Comments: [facility] [address] [place], [place], [address] Vitamin D 25-OH 28.8 ng/mL (Normal) Comments: Vitamin D 25(OH) Status Range Deficiency <20 ng/mL (50nmol/L) Insuffciency 20 - 30 ng/mL (50 - 75 nmol/L) Sufficiency 30 - 100 ng/mL (75 - 250 nmol/L) Toxicity >100 ng/mL (>250 nmol/L); ADDENDA: non-emergent till apt :35 CBC W/Diff, Automated Comments: [facility] [address]srsbl[address] [place], [address] Absolute Lymph 1.26 {X10_3/ul} (Normal) [...] 4.2-5.4 WBC 4.8 K/mm3 (Normal) Range: 4.4-11.0 17-Ytq-32935:35 Comprehensive Metabolic Profil Comments: [facility] Cys[address]urtvai[address] [place], [place], [address] GAP 14 (Normal) Range: 5-15 CO2 26.0 [...] ASPIRATION (SLIDES ONLY) See Note (Normal) Comments: [facility] [address]irtnw[address] [place], [place], [id number] 0 Comments: Patient: IFEOMA ASHRAF : 1965 (50/F) Acct Num: [id number] Phys: Janelle KING,Alejandro Unit Num: [id number] Loc: LABSPEC Specimen: [id number] Received: 01/06/16 - 1129 Spec Ty pe: ASPIRATION TISSUES TISSUES: COMMENT Correlation with clinical, radiologic findings and appropriate follow up are necessary. CYTOLOGY GROSS Received are 10 smears labeled wit h the patient's name and designated per the requisition as fine needle aspiration left thyroid. Submitted for staining. 01/06/16 TC:5 CPT:43323 CYTOLOGY STUDY Slides are reviewed. The spe [...] CBC W/Diff, Auto - EPLAB Comments: At [facility] Oncologypatients receive CBC w/auto Differential ONLY. Physicianwill place an order for a manual differential or Pathologistreview at his discretion. [facility] OUTPATIENT [facility]. [address] [place] [address] [address] BIODIESEL TECHNOLOGY MANAGER: MATEO CASTANEDA DO PH:[phone] Health [address]veiwa[address] [place], [place], [address] Absolute Lymph 1.49 {X10_3/uL} (Normal) Range: 0.83-4.51 [...] 4.2-5.4 WBC 4.6 K/mm3 (Normal) Range: 4.4-11.0 4-Rvh-991577:28 Comprehensive Metabolic Profil Comments: Serial Specimen #1, #2 or #3? [facility] [address]kdrrdq[address] [place], [address] GAP 8 (Normal) Range: 5-15 CO2 26.0 [...] 126 mg/dLsuggests DIABETES MELLITUS per A.D.A. criteria. 0-Cdt-888672:28 LDH 213 U/L (Normal) Comments: Serial Specimen #1, #2 or #3? [address] [place] [address] [address] [place], [address] Range: 84-246 4-Phy-232004:28 Magnesium Comments: Serial Specimen #1, #2 or #3? [address] [place] [address] [place], [address] MG 1.6 mg/dL (Abnormal) Range: 1.8-2.4 9-Ufw-837060:28 Uric Acid Comments: Serial Specimen #1, #2 or #3? [address] [place] [address] [place], [address] URIC 4.8 mg/dL (Normal) Range: 2.6-6.0 26-Nov-20159:36 Miscellaneous Lab Procedure Comments: Comments: [id number] URINE TOX,RUN LOWEST TESTTest(s) Ordered: [id number] URINE TOX,RUN LOWEST TESTWilson Health [address] [place], [address] [facility] Comments: [id number] 6+OXYCODONE-BUND (ng/mL)DRUG RESULT SCREEN CUTOFF____ Amphetamines,Urine Negat LAB (Normal) scott ng/mL 1000Amphetamine test includes Amphetamine and Methamphetamine.Barbiturates Negative ng/mL 200Benzodiazepines Negative ng/mL 200Cannabinoid TEST Negative ng/mL 20Cocaine (Metab) Negative ng/mL 300Opiates Positive ng/mL 300 Opiates test includes Codeine, Morphine, Hydromorphone, [place] codone.Please Note:Confirmation performed by Mass SpectrometryCodeine NegativeMorphine NegativeHydromorphone NegativeHydrocodone Positive Hydrocodone Confirm 1950 ng/mL 300Oxycodone/Oxymorphone,Urine Negative ng/mL 300 Test includes Oxydodone and Oxymorphone. TESTI NG PERFORMED AT [facility]. ORIGINAL REPORT ON FILE IN LAB CONTAINS ADDITIONAL TEST SITE INFORMATION. 26-Nov-20159:36 Urine Drug Screen (VISTA) Comments: Comments: [id number] URINE TOX,RUN LOWEST TESTList of Drugs Taken or Suspected? [facility] [address]xdglr[address] [place], [address] ; ordered by Basali THC NEGATIVE (Normal) [...] TESTING MUST BE ORDERED SEPARATELY. USE TESTMNEMONIC: [facility] 61-Iea-442915:20 HgA1C , Office (26723) HgA1C , Office 7.3 % (Abnormal) Range: 4.6 - 7.1 :13 AFP, Tumor Marker Comments: Is Patient ? [facility] (refer to report for specific site)refer to report for address and phone number AFP TUMOR 2253 6.4 ng/mL (Normal) Range: 0.0-8.3 Comments: LPATH ECLIA methodologyPerformed at: [facility] [address] [id number] Director: Omar Hood PhD, Phone: [phone] :13 CBC W/Diff, Automated Comments: [facility] [address] [place], [address] Absolute Lymph 1.59 {X10_3/ul} (Normal) [...] Range: 4.4-11.0 :13 Comprehensive Metabolic Profil Comments: [facility] [address]jt[address] [place], [address] GAP 10 (Normal) Range: 5-15 CO2 24.0 [...] per A.D.A. criteria. :13 Lipid Profile Comments: [facility] [address] [place], [address] ; non-emergent and pt has [...] High Risk :13 Microalb:Creat Ratio,Random UR Comments: [facility] [address] [place], [address] MALB:CREAT 17.0 {mg/g_CRE} (Normal) MICROALBUMIN,UR 43.7 mg/L (Normal) UR CREAT 257.00 mg/dL (Normal) :13 Thyroid Stim Hormone (TSH) Comments: [facility] [address] [place], [address] TSH 1.82 {uIU/mL} (Normal) Range: 0.358-3.74 :13 Vitamin D,25 Hydroxy Comments: [facility] [address] [place], [address] ; will review at 11/10 appt Vitamin D 25-OH 39.8 ng/mL (Normal) Comments: Vitamin D 25(OH) Status Range Deficiency <20 ng/mL (50nmol/L) Insuffciency 20 - 30 ng/mL (50 - 75 nmol/L) Sufficiency 30 - 100 ng/mL (75 - 250 nmol/L) Toxicity >100 ng/mL (>250 nmol/L) :40 CBC W/Diff, Automated Comments: [facility] [address]lezzinth[address] [place], [place], [address] Absolute Lymph 1.47 {X10_3/ul} (Normal) Range: 0.83-4.51 [...] Range: 4.4-11.0 :40 Comprehensive Metabolic Profil Comments: [facility] [address] [place], [place], [address] GAP 13 (Normal) Range: 5-15 CO2 24.0 [...] per A.D.A. criteria. :49 HgA1C , Office (36725) HgA1C , Office 7.8 % (Abnormal) Range: 4.6 - 7.1 48-Qwt-414576:09 CBC W/Diff, Automated Comments: [facility] [address] [place], [place], [address] Absolute Lymph 1.07 {X10_3/ul} (Normal) Range: 0.83-4.51 [...] 4.2-5.4 WBC 5.3 K/mm3 (Normal) Range: 4.4-11.0 55-Cnh-014370:09 Comprehensive Metabolic Profil Comments: [facility] [address]sb[address] [place], [place], [address] GAP 7 (Normal) Range: 5-15 CO2 28.0 [...] 200 mg/dLsuggests DIABETES MELLITUS per A.D.A. criteria. 1-Zil-248469:42 CBC W/Diff, Automated Comments: At [facility] Medical Oncologypatients receive CBC w/auto Differential ONLY. Physicianwill place an order for a manual differential or Pathologistreview at his discretion. [facility] OUTPATIENT [facility]. [address] [place] [address] [address] BIODIESEL TECHNOLOGY MANAGER: MATEO ACSTANEDA DO PH:[phone] performed at:[facility] Labor[address] [place], [place] [address] Absolute Lymph 1.60 {X10_3/ul} (Normal) Range: 0.83-4.51 [...] 4.2-5.4 WBC 7.0 K/mm3 (Normal) Range: 4.4-11.0 2-Wnq-950857:42 Comprehensive Metabolic Profil Comments: Serial Specimen #1, #2 or #3? 1Test performed at:[facility] Rsnvdcpcih22[address] [place], [place] [address] GAP 9 (Normal) Range: 5-15 CO2 25.0 [...] Comments: Please note revised CREATININE reference range iigoacrep84/22/2015. BUN 20 mg/dL (Abnormal) Range: 7-18 GLU 118 mg/dL (Abnormal) Range: 70-110 Comments: Fasting Glucose result from 110 to <126 mg/dLsuggests IMPAIRED HOMEOSTASIS per A.D.A. criteria. :42 LDH 133 U/L (Normal) Comments: Serial Specimen #1, #2 or #3? 1Test performed at:[facility] [address] [place] [address] Range: 84-246 1-Lqk-055800:42 Uric Acid Comments: Serial Specimen #1, #2 or #3? 1Test performed at:[facility] [address] [place], [place] [address] URIC 4.6 mg/dL (Normal) Range: 2.6-6.0 :02 CBC W/Diff, Automated Comments: Test performed at:[facility] [address] [place] [address] ; handled by vicki Absolute Lymph 1.23 [...] 4.2-5.4 WBC 4.1 K/mm3 (Abnormal) Range: 4.4-11.0 6-Chz-700681:02 Comprehensive Metabolic Profil Comments: Test performed at:[facility] [address] [place] [address] GAP 12 (Normal) Range: 5-15 CO2 23.0 [...] Comments: Please note revised CREATININE reference range zdvtwnisv77/22/2015. BUN 11 mg/dL (Normal) Range: 7-18 GLU 214 mg/dL (Abnormal) Range: 70-110 Comments: Glucose result greater than or equal to 200 mg/dLsuggests DIABETES MELLITUS per A.D.A. criteria. :49 VITAMIN B-12 (CYANOCOBALAMIN) Comments: PATIENT NOT FASTINGPERFORMED BY: [facility] [id number] (33436) Vitamin B12 464 pg/mL (Normal) Range: 211-946 :49 Vitamin D Hydroxy (68014) Comments: PATIENT NOT FASTINGPERFORMED BY: ZOZI Yogxps0312 Abigail StewartAt[facility] Health [id number] Vitamin D, 25-Hydroxy 11.5 ng/mL (Abnormal) Range: 30.0-100.0 Comments: Vitamin D deficiency has been defined by the [place] of[facility] and an Endocrine Society practice guideline as alevel of serum 25-OH vitamin D less than 20 ng/mL (1,2).The Endocrine Society went on to further define vitamin Dinsufficiency as a level between 21 and 29 ng/mL (2).1. IOM ([place] of Medicine). 2010. Dietary reference intakes for calcium and D. [place]: The National Academies Press.2. Sami MF, Sophie NC, Xiomara LARES, et al. Evaluation, treatment, and prevention of vitamin D deficiency: an Endocrine Society clinical practice guideline. JCEM. 2010; 96(7):1911-30. :49 CBC W/AUTO DIFF WBC Comments: PATIENT NOT FASTINGPERFORMED BY: ZOZI Xphaai6178 [facility] [id number] Information: [id number] (05871) Immature Grans (Abs) 0.0 {x10E3/uL} (Normal) Range: [...] 3.77-5.28 WBC 6.1 {x10E3/uL} (Normal) Range: 3.4-10.8 38-Ekx-301090:28 URINE GENESIS CULTURE-NITA COL Comments: PATIENT NOT FASTINGPERFORMED BY: [facility] Kwizod0937 [facility] [id number] Information: SRC:[facility] [id number] COUNT (85508) Antimicrobial MIHEAD (Normal) Comments: S = Susceptible; [...] Imipenem Meropenem Urine Final report (Abnormal) Culture,Comprehensive 44-Nyy-842438:24 Urinalysis, Office (62132) UA - LEUKOCYTE ESTERASE Trace (Normal) UA - NITRITE Negative (Normal) URINE UROBILINGN NITA TIMED Normal mg/dL (Normal) UA - PROTEIN 30 mg/dL (Normal) UA - PH 6 (Abnormal) UA - BLOOD Negative (Normal) UA - SPECIFIC GRAVITY 1.030 (Abnormal) UA - KETONES Moderate mg/dL (Normal) UA - BILIRUBIN Small (Normal) UA - GLUCOSE Negative (Normal) 01-Apr-20157:54 Bedside Glucose Comments: Test performed at:[facility] Xnicpvjssg1803 [place], [place] [id number] BEDSIDE GLU 129 mg/dL (Abnormal) Range: 70-110 Comments: MANAGEMENT OF PATIENT CARE PER NURSING PROTOCOL 31-Mar-20159:47 Urinalysis, Office (77405) UA - LEUKOCYTE ESTERASE Trace (Normal) UA - NITRITE Negative (Normal) URINE UROBILINGN NITA TIMED 2 mg/dL (Normal) UA - PROTEIN 300 mg/dL (Normal) UA - PH 6.0 (Normal) UA - BLOOD Hemolyzed Large (Normal) UA - SPECIFIC GRAVITY 1.030 (Abnormal) UA - KETONES 15 mg/dL (Abnormal) UA - BILIRUBIN Moderate (Normal) UA - GLUCOSE Negative (Normal) 50-Tzy-635558:57 Basic Metabolic Profile (BMP) Comments: Test performed at:[facility] Dcutjlhehk7346 [place], [place] [address] GAP 11 (Normal) Range: 5-15 CO2 27.0 [...] 126 mg/dLsuggests DIABETES MELLITUS per A.D.A. criteria. 99-Vlw-444976:57 Digoxin Level Comments: Test performed at:[facility] [address] [place] [address] DIG 1.17 ng/mL (Normal) Range: 0.80-2.00 59-Dio-672138:57 Hemoglobin A1c Comments: Test performed at:[facility] [address]by[address] [place] [address] HGB A1C 7.0 % (Abnormal) Range: 4.2-6.3 79-Ixx-020814:57 Thyroid Stim Hormone (TSH) Comments: Test performed at:[facility] [address]ce[address] [place] [address] TSH 0.89 {uIU/mL} (Normal) Range: 0.358-3.74 0-Pei-545653:17 Urine Culture,Comprehensive Comments: PATIENT NOT FASTINGPERFORMED BY: [facility] Pjfcvn5824 [facility] [id number] Information: SRC:[facility] [id number] Result 1 BETAGB (Abnormal) Comments: Beta hemolytic [...] 02/28/15How was Urine Obtained? CLEAN CATCHTest performed at:[facility] Nlsqnbmalc7276 [facility] [place] [address] AMORPHOUS 1+ URATE (Normal) MUCUS, [...] :55 CBC W/Diff, Automated Comments: Test performed at:[facility] Nryuzowkgx6939 [facility] [place] [address] Absolute Lymph 1.29 {X10_3/ul} (Normal) [...] 28-Feb-20153:55 Comprehensive Metabolic Profil Comments: Test performed at:[facility] Vhxuqzhtte7170 [place], [place] [address] GAP 10 (Normal) Range: 5-15 CO2 26.0 [...] A.D.A. criteria. :55 Lipase Comments: Test performed at:[facility] Gnfwqcbfkv5159 [place], [place] [address] LIPASE 142 U/L (Normal) Range: 70-290 3-Qwo-750889:40 HgA1C , Office (51159) HgA1C , Office 7.4 % (Abnormal) Range: 4.6 - 7.1 11-Gze-846195:03 CBC W/Diff, Automated Comments: Test performed at:[facility] Tiogjijeby1962 [facility] [place] [address] Absolute Lymph 1.31 {X10_3/ul} (Normal) Range: 0.83-4.51 [...] 4.2-5.4 WBC 5.1 K/mm3 (Normal) Range: 4.4-11.0 18-Jep-402947:03 Comprehensive Metabolic Profil Comments: Test performed at:[facility] [address]sy[address]udz[address] [place] [address] GAP 11 (Normal) Range: 5-15 CO2 26.0 [...] 126 mg/dLsuggests DIABETES MELLITUS per A.D.A. criteria. 51-Dtl-616752:00 Culture, Urine Comments: Test performed at:[facility] [address]zxmescp[address] [place] [address] CUUR See Note (Normal) Comments: Urine CultureORGANISM 1: Streptococcus agalactiae (B)[place] Count 1000-10,000 Streptococcus agalactiae (B): REACTION Ampicillin $ <=0.25 S Benzylpenicillin NF <=0.06 S Ceftriaxone (other dx) $ <=0.12 S Inducable Clindamycin Resistan - Linezolid $$$$ <=2 S Vancomycin $ 0.5 S(NF) indicates non-formulary drug at [facility]. Approval by Infectious Disease Specialist required before non-formulary drugs may be ordered and/or dispensed. * CLSI guidelines does not recommend testing of cephalosporins. This interpretation is deduced from Beta-lactam/penicillin results.; ADDENDA: handled by edvin 06-Bzj-83847:32 CBC W/Diff, Auto - EPLAB Only Comments: At [facility] Outpatient [facility], [facility] Cancer Care patientsreceive CBC w/auto Differential ONLY. Physician will placean order for a manual differential or Pathologist review athis discretion. [facility] OUTPATIENT [facility]. [address] [place] [address] [place] [address] BIODIESEL TECHNOLOGY MANAGER: MATEO CASTANEDA DO PH:[phone] performed at:[facility] [address]yct[address] [place] [address] ; Richie Absolute Neut 2.7 {X10_3/uL} (Normal) [...] Specimen #1, #2 or #3? 1Test performed at:[facility] [address]xb[address]agkth[address] [place] [address] Range: 87-241 Comments: ADDENDA: richie :34 TSH (59146) Comments: PATIENT WAS FASTINGPERFORMED BY: [facility] Bjxmfs2296 [facility] [id number] TSH 1.240 {uIU/mL} (Normal) Range: 0.450-4.500 :34 LIPID PANEL (93762) Comments: PATIENT WAS FASTINGPERFORMED BY: [facility] Oawjde6400 [facility] [id number] LDL/HDL Ratio 2.6 {ratio_units} (Normal) Range: 0.0-3.2 [...] CREATININE RATIO Comments: PATIENT WAS FASTINGPERFORMED BY: ZOZISaint Clare's Hospital at Boonton TownshipVxlhzg5531 [facility] [id number]; non- emergent till apt tomorrow (42149) AND (32993) Microalb/Creat Ratio 14.8 {mg/g_creat} (Normal) Range: 0.0-30.0 Microalbumin, Urine 44.5 ug/mL (Abnormal) Range: 0.0-17.0 Creatinine, Urine 301.0 mg/dL (Abnormal) Range: 15.0-278.0 :34 METABOLIC PANEL, Comments: PATIENT WAS FASTINGPERFORMED BY: niid.to6370 [facility] [id number] Information: [id number] COMPREHENSIVE (84671) ALT (SGPT) 21 [iU]/L (Normal) Range: 0-32 [...] Glucose, Serum 161 mg/dL (Abnormal) Range: 65-99 9-Bzz-410390:10 HgA1C , Office (95964) HgA1C , Office 7.2 % (Abnormal) Range: 4.6 - 7.1 :47 CBC W/Diff, Automated Comments: Test performed at:[facility] Gquyeskigr[address] [place], [place] [address] ; Handled by Vicki Absolute Lymph 1.43 [...] 4.2-5.4 WBC 5.4 K/mm3 (Normal) Range: 4.4-11.0 30-Trs-085869:47 Comprehensive Metabolic Profil Comments: Test performed at:[facility] Cxsexkklrd[address] [place], [place] [address] GAP 6 (Normal) Range: 5-15 CO2 30.0 [...] Microscopic Examination Comments: PATIENT NOT FASTINGPERFORMED BY: LabCoSaint Clare's Hospital at Boonton TownshipLwmsyk2074 [facility] [id number] Bacteria Few (Normal) Mucus Threads Present (Normal) Epithelial Cells (non renal) 0-10 {/hpf} (Normal) Range: 0 - 10 RBC 0-2 {/hpf} (Normal) Range: 0 - 2 WBC >30 {/hpf} (Abnormal) Range: 0 - 5 :01 Urinalysis, Routine Comments: PATIENT NOT FASTINGPERFORMED BY: [facility] Ahhmjc6600 Mohinder StuartAtrium Health [id number] Microscopic Examination See below: (Normal) Comments: Microscopic was indicated and was performed. Nitrite, Urine Negative (Normal) Urobilinogen,Semi-Qn 0.2 mg/dL (Normal) Range: 0.0-1.9 Bilirubin Negative (Normal) Occult Blood Negative (Normal) Ketones Trace (Abnormal) Glucose Negative (Normal) Protein 1+ (Abnormal) WBC Esterase 3+ (Abnormal) Appearance Turbid (Abnormal) Urine-Color Yellow (Normal) pH 6.0 (Normal) Range: 5.0-7.5 Specific [place] 1.030 (Normal) Range: 1.005-1.030 32-Hik-987958:18 CBCD ALC 1.30 {X10_3/ul} (Normal) Range: 0.83-4.51 [...] 4.2-5.4 WBC 4.5 K/mm3 (Normal) Range: 4.4-11.0 84-Hpm-086655:18 CMP GAP 7 (Normal) Range: 5-15 CO2 [...] mg/dLsuggests DIABETES MELLITUS per A.D.A. criteria. :01 SZZKQ-RTNRZIRYLPT-UEKCD (66093) Comments: PATIENT NOT FASTINGPERFORMED BY: New KCBXCoSaint Clare's Hospital at Boonton TownshipWpxdjb0082 [facility] [id number] AFP, Serum, Tumor Marker 7.1 ng/mL (Normal) Range: 0.0-8.3 Comments: Khanh ECLIA methodology :01 PTT (Activated Partial Comments: PATIENT NOT FASTINGPERFORMED BY: New KCBXCoSaint Clare's Hospital at Boonton TownshipZhusks5104 [facility] [id number] Thromboplastin Time) (61234) aPTT 25 {sec} (Normal) Range: 24-33 Comments: This test has not been validated for monitoring unfractionated heparintherapy. aPTT-based therapeutic ranges for unfractionated heparintherapy have not been established. For general guidelines onHeparin monitoring, refer to the [facility] Directory of Services. :01 PT (Prothrobim Time) (73119) Comments: PATIENT NOT FASTINGPERFORMED BY: [place] [id number] [facility] [id number] Prothrombin Time 10.4 {sec} (Normal) Range: 9.1-12.0 INR 1.0 (Normal) Range: 0.8-1.2 Comments: Reference interval is for non-anticoagulated patients. . Suggested INR therapeutic range for Vitamin K anta gonist therapy: Standard Dose (moderate intensity therapeutic range): 2.0 - 3.0 Higher intensity therapeutic range 2.5 - 3.5 :01 TSH (04765) Comments: PATIENT NOT FASTINGPERFORMED BY: [facility]6370 [facility] [id number] TSH 1.450 {uIU/mL} (Normal) Range: 0.450-4.500 :01 CBC W/AUTO DIFF WBC Comments: PATIENT NOT FASTINGPERFORMED BY: [place] [id number] [facility] [id number] Information: [id number] (95891) Immature Grans (Abs) 0.0 {x10E3/uL} (Normal) Range: [...] CREATININE RATIO Comments: PATIENT NOT FASTINGPERFORMED BY: [facility] Times RestaurantsCibola General HospitalTjllvm3285 [facility] [id number] (49900) AND (15968) Microalb/Creat Ratio 26.4 {mg/g_creat} (Normal) Range: 0.0-30.0 Microalbumin, Urine 96.0 ug/mL (Abnormal) Range: 0.0-17.0 Creatinine, Urine 364.2 mg/dL (Abnormal) Range: 15.0-278.0 :01 METABOLIC PANEL, COMPREHENSIVE Comments: PATIENT NOT FASTINGPERFORMED BY: [facility] Times RestaurantsCibola General HospitalEznayr0702 [facility] [id number] (89769) ALT (SGPT) 19 [iU]/L (Normal) Range: 0-32 [...] mg/dL (Abnormal) Range: 65-99 30-Sep-20148:01 LIPID PANEL (79410) Comments: PATIENT NOT FASTINGPERFORMED BY: LabCoSaint Clare's Hospital at Boonton TownshipAdgweo0458 [facility] [id number] LDL/HDL Ratio 2.1 {ratio_units} (Normal) Range: 0.0-3.2 [...] (Normal) Range: 100-199 :19 HgA1C , Office (82687) HgA1C , Office 6.3 % (Normal) Range: [...] 4.2-5.4 WBC 7.0 K/mm3 (Normal) Range: 4.4-11.0 9-Dsy-467177:07 CMP GAP 7 (Normal) Range: 5-15 CO2 [...] & Aerobic Comments: PATIENT NOT FASTINGPERFORMED BY: Gruppo Argentaox inthincAtrium Health [id number] Information: SRC:WND [id number] RIGHT EYE Culture (36647) Antimicrobial MIHEAD (Normal) Comments: S = Susceptible; [...] hours. Anaerobic Culture Final report (Normal) :57 TBBRD-FYZFLANRXZU-GIQJV (86596) Comments: PATIENT WAS FASTINGPERFORMED BY: ZOZI Bfsrgq7876 [facility] [id number] AFP, Serum, Tumor Marker 9.2 ng/mL (Abnormal) Range: 0.0-8.3 Comments: Khanh ECLIA methodology :57 PTT (Activated Partial Comments: PATIENT WAS FASTINGPERFORMED BY: [place] [id number] [facility] [id number] Thromboplastin Time) (94189) aPTT 26 {sec} (Normal) Range: 24-33 Comments: This test has not been validated for monitoring unfractionated heparintherapy. aPTT-based therapeutic ranges for unfractionated heparintherapy have not been established. For general guidelines onHeparin monitoring, refer to the [facility] Directory of Services. :57 PT (Prothrobim Time) (33038) Comments: PATIENT WAS FASTINGPERFORMED BY: [facility]6370 [facility] [id number] Prothrombin Time 10.5 {sec} (Normal) Range: 9.1-12.0 INR 1.0 (Normal) Range: 0.8-1.2 Comments: Reference interval is for non-anticoagulated patients. . Suggested INR therapeutic range for Vitamin K anta gonist therapy: Standard Dose (moderate intensity therapeutic range): 2.0 - 3.0 Higher intensity therapeutic range 2.5 - 3.5 :57 TSH (30486) Comments: PATIENT WAS FASTINGPERFORMED BY: [facility]6370 [facility] [id number] TSH 3.200 {uIU/mL} (Normal) Range: 0.450-4.500 :57 CBC WITH MANUAL DIFF Comments: PATIENT WAS FASTINGPERFORMED BY: [facility]6370 [facility] [id number] Information: [id number] (45350) Immature Grans (Abs) 0.0 {x10E3/uL} (Normal) Range: [...] PANEL, COMPREHENSIVE Comments: PATIENT WAS FASTINGPERFORMED BY: [facility]6370 [facility] [id number] (65467) ALT (SGPT) 15 [iU]/L (Normal) Range: 0-32 [...] (Abnormal) Range: 65-99 :29 HgA1C , Office (49825) HgA1C , Office 5.4 % (Normal) Range: [...] 7-18 GLU 76 mg/dL (Normal) Range: 70-110 2-Zlq-352710:50 LIPID LDL 82 mg/dL (Normal) Range: 0-130 [...] CHOL 150 mg/dL (Normal) Comments: <200 mg/dL Bdsattufh199-654 mg/dL Borderline>240 mg/dL High Risk :50 HgA1C , Office (96313) HgA1C , Office 5.8 % (Normal) Range: [...] [facility]. Approximately 10% of breast cancers are not detected by mammography. Anormal mammogram should not delay biopsy of a clinically suspiciousabnormality. Signed:Prashant Delgadillo M.D.[facility] 2012 at 9:19:01 AM [id number] Signed GP/GP If you are the referring physician and would like to consult with theradiologist who provided this interpretation, please herbie Bonilla M.D. at [phone]. If this radiologist is unavailable, youwill be directed to another radiologist to assist. If you are a patient with a question regarding this report, pleaseco ntactyour referring physician directly. Professional Interpretation Provided By: 9facts, Phone , These documents contain legally protected [...] on 06/15/13920 Sign by: Prashant Delgadillo MD 87-Ekl-65107:27 THYROID Radiology Report See Note Comments: STUDY: [...] Delgadillo M.D.June 15, 2013 at 2:56:26 PM [phone] Signed GP/GP If you are the referring physician and would like to consult with theradiologist who provided this interpretation, please contact Sarmad Bonilla at [phone]. If this radiologist is unavailable, youwill be directed to another radiologist to assist. If you are a patient with a question regarding this report, pleasecontactyour referring physician directly. Linda sional Interpretation Provided By: 9facts, Phone , These documents contain legally protected [...] on 06/15/131732 Sign by: Prashant Delgadillo MD 2-Ref-032854:18 URINE GENESIS CULTURE-NITA COL Comments: PATIENT NOT FASTINGPERFORMED BY: [employer] Gvmroe8370 [employer] [id number] Information: SRC: [id number] COUNT (40958) Antimicrobial MIHEAD (Normal) Comments: S = Susceptible; [...] primarily for treating urinary tract infections. (CLSI, W293-X57,2009) Urine Culture,Comprehensive Final report (Normal) :48 Urinalysis, Office (37497) UA - LEUKOCYTE ESTERASE Large (Normal) UA - NITRITE Positive (Normal) URINE UROBILINGN NITA TIMED 2 mg/dL (Normal) UA - PROTEIN Negative mg/dL (Normal) UA - BLOOD Negative (Normal) UA - KETONES Moderate mg/dL (Normal) UA - BILIRUBIN Moderate (Normal) UA - GLUCOSE Small mg/dL (Normal) :06 MICROALBUMIN: CREATININE RATIO Comments: PATIENT WAS FASTINGPERFORMED BY: [facility] Smjosd5625 [place] [employer] MarketsMartin General Hospital [id number] (43426) AND (08781) Microalb/Creat Ratio 27.4 {mg/g_creat} (Normal) Range: 0.0-30.0 Microalbumin, Urine 85.2 ug/mL (Abnormal) Range: 0.0-17.0 Creatinine, Urine 311.1 mg/dL (Abnormal) Range: 15.0-278.0 13-Vxa-05580:06 METABOLIC PANEL, Comments: PATIENT WAS FASTINGPERFORMED BY: LabCoSaint [facility] Hospital at Boonton TownshipMnezob6942 [facility] [id number] Information: ADD [id number] AND DRAW FEE 99 8489 COMPREHENSIVE (44207) ALT (SGPT) 29 [iU]/L (Normal) Range: 0-32 [...] 76 mg/dL (Normal) Range: 65-99 :06 TSH (94673) Comments: PATIENT WAS FASTINGPERFORMED BY: [facility] [id number] TSH 3.040 {uIU/mL} (Normal) Range: 0.450-4.500 :06 LIPID PANEL (88712) Comments: PATIENT WAS FASTINGPERFORMED BY: Kormeli [facility] [id number] LDL/HDL Ratio 2.4 {ratio_units} (Normal) Range: 0.0-3.2 HDL Cholesterol 55 mg/dL (Normal) Comments: According to ATP-III Guidelines, HDL-C >59 mg/dL is considered anegative risk factor for CHD. LDL Cholesterol Calc 134 mg/dL (Abnormal) Range: 0-99 VLDL Cholesterol Ramandeep 18 mg/dL (Normal) Range: 5-40 Cholesterol, Total 207 mg/dL (Abnormal) Range: 100-199 Triglycerides 89 mg/dL (Normal) Range: 0-149 :06 OIMXA-YNXPIXRKCEE-NGGWK (63585) Comments: PATIENT WAS FASTINGPERFORMED BY: [employer] [facility] [id number] AFP, Serum, Tumor Marker 5.4 ng/mL (Normal) Range: 0.0-8.3 Comments: Khanh ECLIA methodology :06 PTT (Activated Partial Comments: PATIENT WAS FASTINGPERFORMED BY: [employer] [facility] [id number] Thromboplastin Time) (52443) aPTT 27 {sec} (Normal) Range: 24-33 Comments: This test has not been validated for monitoring unfractionated heparintherapy. aPTT-based therapeutic ranges for unfractionated heparintherapy have not been established. For general guidelines onHeparin monitoring, refer to the [facility] Directory of Services. :06 PT (Prothrobim Time) (43215) Comments: PATIENT WAS FASTINGPERFORMED BY: REINALDO [facility]6370 [facility] [id number] INR 1.1 (Normal) Range: 0.8-1.2 Comments: Reference interval is for non-anticoagulated patients. . Suggested INR therapeutic range for Vitamin K anta gonist therapy: Standard Dose (moderate intensity therapeutic range): 2.0 - 3.0 Higher intensity therapeutic range 2.5 - 3.5 Prothrombin Time 11.0 {sec} (Normal) Range: 9.1-12.0 :51 HgA1C , Office (04178) HgA1C , Office 5.0 % (Normal) Range: [...] mg/dL (Normal) Range: 70-110 :03 Rapid Flu (68850 x 2) Influenza A Ag positive b (Normal) :27 METABOLIC PANEL, COMPREHENSIVE Comments: PATIENT WAS FASTINGPERFORMED BY: ZOZI Bodlca0791 [facility] [id number] (05177) ALT (SGPT) 25 [iU]/L (Normal) Range: 0-32 [...] mg/dL (Normal) Range: 65-99 :27 LIPID PANEL (38411) Comments: PATIENT WAS FASTINGPERFORMED BY: ZOZI Uxrpzc8613 [facility] [id number] LDL/HDL Ratio 0.9 {ratio_units} (Normal) Range: 0.0-3.2 LDL Cholesterol Calc 29 mg/dL (Normal) Range: 0-99 VLDL Cholesterol Ramandeep 17 mg/dL (Normal) Range: 5-40 HDL Cholesterol 32 mg/dL (Abnormal) Comments: According to ATP-III Guidelines, HDL-C >59 mg/dL is considered anegative risk factor for CHD. Cholesterol, Total 78 mg/dL (Abnormal) Range: 100-199 Triglycerides 84 mg/dL (Normal) Range: 0-149 :27 TSH (62059) Comments: PATIENT WAS FASTINGPERFORMED BY: LabCoSaint [facility]'s Hospital at Boonton TownshipOwuzuk4634 [facility] [id number] TSH 3.990 {uIU/mL} (Normal) Range: 0.450-4.500 :27 CBC WITH MANUAL DIFF Comments: PATIENT WAS FASTINGPERFORMED BY: LabCoSaint Clare's Hospital at Boont[facility] TownshipZkscil8628 [facility] [id number] Information: [id number] (61620) Immature Grans (Abs) 0.0 {x10E3/uL} Range: 0.0-0.1 [...] 9:39 Comments: Khanh ECLIA methodologyPerformed at: - LabCo[address] [id number] Director: Manuelito Mendez PhD, Phone: [phone] CBCMD ANC 2.4 3/uL (Normal) Range: [...] CHOL 130 mg/dL (Normal) Comments: <200 mg/dL Vdznpvpzp781-847 mg/dL Borderline>240 mg/dL High Risk :39 MIACRE tMICROCREAT 16.5 {mg/g_CRE} (Normal) MIALB 23.3 mg/L (Normal) CREU 141.0 mg/dL (Normal) :39 PT INR 1.1 (Normal) PTP 13.6 s (Normal) Range: 11.9-14.4 :39 PTT PTTP 29.5 s (Normal) Range: 24.1-36.2 :17 Rapid Flu (88079 x 2) Influenza A Ag neg (Normal) :29 HgA1C , Office (43006) HgA1C , Office 5.9 % (Normal) Range: 4.6 - 7.1 :53 FT3 2.9 pg/mL (Normal) Range: 2.18-3.98 :53 T4F 1.26 ng/dL (Normal) Range: 0.76-1.46 :53 TPO 8 {IU/mL} (Normal) Range: 0-34 Comments: Performed at: [facility] Lab[address] [id number] Director: Codi Robles MD, Phone: [phone] TSH 1.23 {uIU/mL} (Normal) Range: 0.358-3.74 :04 HgA1C , Office (00458) HgA1C , Office 5.8 % (Normal) Range: [...] CMP Comments: ORDERED TSH LIPID CMP CBCMD [facility] SERVICESMARVEL ORDERED VITD CMP CBCD GAP 8 (Normal) [...] LIPID Comments: ORDERED TSH LIPID CMP CBCMD [facility] SERVIC[facility]ARVEL ORDERED VITD CMP CBCD VLDL 21 mg/dL [...] (Normal) Comments: ORDERED TSH LIPID CMP CBCMD [facility]PITALJACINDA ORDERED VITD CMP CBCD Range: 0.358-3.74 :26 VITD 44.8 ng/mL (Normal) Comments: ORDERED TSH LIPID CMP CBCMD KRAIGJOSE ENRIQUE ORDERED VITD CMP CBCD Range: 30.0-100.0 Comments: Vitamin D deficiency has been defined by the [place] ofMedicine and an Endocrine Society practice guideline as alevel of serum 25-OH vitamin D less than 20 ng/mL (1,2).The Endocrine Society went on to further define vitamin Dinsufficiency as a level between 21 and 29 ng/mL (2).1. IOM ([place] of Medicine). 2010. Dietary reference intakes for calcium and D. [place]: The National Academies Press.2. Sami MF, Sophie NC, Xiomara LARES, et al. Evaluation, treatment, and prevention of vitamin D deficiency: an Endocrine Society clinical practice guideline. JCEM. 2010; 96(7): 1911-30.Performed at: [address] [id number] Director: Codi Robles MD, Phone: [phone] 27-Jan-20128:02 BILAT SCRN DIGITAL & CAD Radiology [...] Signed GP/GP Professional Interpretat ion Provided By: GonnaBeBrain Sentry RadiologySouth [facility], , To consult with a radiologist regarding this report, please call our [id number] line @ Dicta dani on 01/27/12 0813 by Faustina KING,Stanislavranscribed on 01/27/12 0950 by ITS IMPORTSign by Faustina KING,Prashant on 01/27/12 0951 Sign by: Prashant Delgadillo MD 63-Qfs-597803:24 HgA1C , Office (84552) HgA1C , Office 5.7 % (Normal) Range: 4.6 - 7.1 29-Kjt-588029:24 Blood Glucose , Office (36105) Blood Glucose , Office 89 (Normal) 81-Gqa-313885:31 Urinalysis, Office (17477) UA - LEUKOCYTE ESTERASE Small (Normal) UA - NITRITE Positive (Normal) URINE UROBILINGN NITA TIMED Normal mg/dL (Normal) UA - PROTEIN 300 mg/dL (Normal) UA - PH 6.0 (Normal) UA - SPECIFIC GRAVITY 1.025 (Normal) UA - KETONES Small mg/dL (Normal) UA - BILIRUBIN Moderate (Normal) UA - GLUCOSE Negative (Normal) 04-Oct-20119:15 HgA1C , Office (50279) HgA1C , Office 6.8 % (Normal) Range: 4.6 - 7.1 04-Oct-20119:15 Blood Glucose , Office (61174) Blood Glucose , Office 162 (Normal) 17-Bsr-663619:22 THYROID Radiology Report See Note (Normal) Comments: [...] CULTURE-NITA COL Comments: PATIENT NOT FASTINGPERFORMED BY: LabCoSaint Clare's Hospital at Boont[facility] TownshipTmbmdr5427 [facility] [id number] Information: SRC:UR [id number] COUNT (60462) Antimicrobial MIHEAD (Normal) Comments: S = Susceptible; [...] pneumoniae (Normal) Urine Final report Culture,Comprehensive (Normal) 06-Kfa-41136:32 Urinalysis, Office (21454) UA - LEUKOCYTE ESTERASE Moderate (Normal) URINE UROBILINGN NITA TIMED Normal mg/dL (Normal) UA - PROTEIN 100 mg/dL (Normal) UA - PH 6.0 (Normal) UA - BLOOD Hemolyzed Large (Normal) UA - SPECIFIC GRAVITY 1.025 (Normal) UA - KETONES Negative mg/dL (Normal) UA - BILIRUBIN Negative (Normal) UA - GLUCOSE Negative (Normal) :28 Blood Glucose , Office (35154) Blood Glucose , Office 223 (Normal) :10 Urinalysis, Office (94645) UA - BILIRUBIN Small (Normal) UA - BLOOD Hemolyzed Large (Normal) UA - GLUCOSE Small (Normal) Comments: 100 UA - KETONES Negative mg/dL (Normal) UA - LEUKOCYTE ESTERASE Trace (Normal) UA - NITRITE Positive (Normal) UA - PH 5.0 (Normal) UA - PROTEIN 300 mg/dL (Normal) UA - SPECIFIC GRAVITY 1.020 (Normal) URINE UROBILINGN NITA TIMED 2 mg/dL (Normal) 5-Zpi-467134:29 URINE GNEESIS CULTURE-NITA COL Comments: PATIENT NOT FASTINGPERFORMED BY: [facility] Fpheub3093 Vines RoadDublin [place] [id number] Information: SRC:UR [id number] COUNT (07383) Antimicrobial MIHEAD (Normal) Comments: S = Susceptible; [...] mL (Normal) Urine Final report (Normal) Culture,Comprehensive 3-Dkr-839326:31 Urinalysis, Office (62929) UA - BILIRUBIN Large (Normal) UA - BLOOD Hemolyzed Moderate (Normal) UA - GLUCOSE Moderate (Normal) Comments: 250 mg/dL UA - KETONES Small mg/dL (Normal) Comments: 15mg/dL UA - LEUKOCYTE ESTERASE Large (Normal) UA - NITRITE Positive (Normal) UA - PH 5.0 (Normal) UA - PROTEIN 300 mg/dL (Normal) UA - SPECIFIC GRAVITY 1.015 (Normal) URINE UROBILINGN NITA TIMED 8 mg/dL (Normal) 35-Urq-06776:28 CBCD,SMEAR DIFF RED CELL MORPH SeeNote {NORMAL} [...] (Abnormal) Range: 0.358-3.74 :28 HgA1C , Office (58480) HgA1C , Office 8.3 % (Abnormal) Range: 4.6 - 7.1 :28 Blood Glucose , Office (26124) Blood Glucose , Office 176 (Normal) :24 [...] 200-240 mg/dL Borderline >240 mg/dL High Risk 03-Teh-433984:54 BRAIN/HEAD W/WO CONTRAST Radiology See Note Comments: [...] Prashant Delgadillo MD :44 HgA1C , Office (60859) HgA1C , Office 7.4 % (Abnormal) Range: 4.6 - 7.1 :44 Blood Glucose , Office (89681) Blood Glucose , Office 206 (Normal) :37 [...] Report See Note (Normal) Comments: Exam Number: [id number] AMMOGRAPHY - BILATERAL SCREENING INDICATION:Routine annual screening [...] attaching a ResultCode to this exam. ADDENDUM: [id number] HPBI/MDS Reported By: PRASHANT DELGADILLO :14 HgA1C , Office (26077) HgA1C , Office 7.0 % (Normal) Range: 4.6 - 7.1 :14 Blood Glucose , Office (49872) Blood Glucose , Office 164 (Normal) :30 LASHA DIR SEMI-QL LASHA DIRECT 24 AU/mL (Normal) :30 ANTI-dsDNA AB 10 {IU/mL} (Normal) :30 TSH 6.39 {uIU/mL} (Abnormal) Range: 0.358-3.74 10-Anf-762088:35 C-REACTIVE PROTEIN (09426) Comments: PATIENT NOT FASTINGPERFORMED BY: [facility]Core[facility]6370 [facility] [id number] C-Reactive Protein, Quant 6.5 mg/L (Abnormal) Range: 0.0-4.9 :35 SED RATE ERYTHROCYTE (40240) Comments: PATIENT NOT FASTINGPERFORMED BY: [facility]Core[facility]6370 [facility] [id number] Sedimentation Rate-Westergren 14 mm/h (Normal) Range: 0-20 :35 RHEUMATOID FACTOR-QUANT (16065) Comments: PATIENT NOT FASTINGPERFORMED BY: [facility]Core[facility]6370 [facility] [id number] RA Latex Turbid. 7.6 {IU/mL} (Normal) Range: 0.0-13.9 :35 LASHA (ANTINUCLEAR ANTIBODY) Comments: PATIENT NOT FASTINGPERFORMED BY: [facility]6370 [facility] [id number] (45516) LASHA Direct Positive (Abnormal) 62-Dqf-693775:35 T3, FREE (TRIDOTHYRONINE) (60997) Comments: PATIENT NOT FASTINGPERFORMED BY: [facility] Eakdiq3762 [address] [facility] [id number] Triiodothyronine,Free,Serum 2.8 pg/mL (Normal) Range: 2.0-4.4 :35 T4, FREE (THYROXINE) (28280) Comments: PATIENT NOT FASTINGPERFORMED BY: [facility] Dohnnf7197 [address] [facility] [id number] T4,Free(Direct) 0.76 ng/dL (Abnormal) Range: 0.82-1.77 :35 Anti-TPO Antibody (29819) Comments: PATIENT NOT FASTINGPERFORMED BY: New KCBXCorewell Health [facility]6370 [facility] [id number] Thyroid Peroxidase (TPO) Ab <6 {IU/mL} (Normal) Range: 0-34 :35 TSH (54016) Comments: PATIENT NOT FASTINGPERFORMED BY: [place] [id number] [facility] [id number] TSH 5.630 {uIU/mL} (Abnormal) Range: 0.450-4.500 Comments: Please note reference interval change :35 METABOLIC PANEL, Comments: PATIENT NOT FASTINGPERFORMED BY: New KCBXRicardo [place]ille 9366070 [facility] [id number] Information: [id number] COMPREHENSIVE (17436) ALT (SGPT) 55 [iU]/L (Abnormal) Range: 0-40 [...] Glucose, Serum 151 mg/dL (Abnormal) Range: 65-99 10-Ufz-675478:02 GENESIS CULTURE-OTHER (68939) Comments: PATIENT NOT FASTINGPERFORMED BY: [facility] Tvbiqd1271 [facility] [id number] Information: SRC:THRT [id number] Result 1 Yeast isolated. (Normal) Comments: Moderate growthRequest for further identification must be madewithin 1 week. Upper Respiratory Culture Final report (Normal) 38-Pqf-24920:37 Rapid Strep Test, Office (42141) Rapid Strep Test, Office Negative (Normal) 23-Xxv-175643:11 THYROID (HP) Radiology Report See Note (Normal) Comments: Exam Number: [id number] CLINICAL:This is a 45-year-old female patient with [...] the right lobe. Reported By: PRASHANT DELGADILLO 05-Jsh-87090:41 COMP METABOLIC CL 100 mmol/L (Normal) Range: [...] CHOL 147 mg/dL (Normal) Comments: <200 mg/dL Vnkffjpwr132-907 mg/dL Borderline>240 mg/dL High Risk HDL 32 [...] :41 TSH 4.85 {uIU/mL} (Abnormal) Range: 0.358-3.74 47-Qxs-208436:50 URINE GENESIS CULTURE-NITA COL Comments: PATIENT NOT FASTINGPERFORMED BY: REINALDO [facility] Uoqphp0178 [address] [place] [id number] Information: SRC:INGRID ADD [id number] COUNT (93872) Result 1 Klebsiella pneumoniae Comments: 1,000 Colonies/mL [...] STrimethoprim/Sulfa S Urine Final report (Normal) Culture,Comprehensive 32-Jny-05579:55 Urinalysis, Office (93919) UA - LEUKOCYTE ESTERASE Small (Normal) UA - NITRITE Negative (Normal) URINE UROBILINGN NITA TIMED Normal mg/dL (Normal) UA - PROTEIN 30 mg/dL (Normal) UA - PH 6.0 (Normal) UA - BLOOD Negative (Normal) UA - SPECIFIC GRAVITY 1.020 (Normal) UA - KETONES Negative mg/dL (Normal) UA - BILIRUBIN Negative (Normal) UA - GLUCOSE Negative (Normal) 8-Nuv-736346:37 PET/CT,TUMOR,BASE-THIGH,SUBS Radiology Report See Note (Normal) Comments: Exam Number: [id number] EXAM: Body PET study Head to Mid [...] 44:398P, 2003). w Reported By: ADELA MOLINA 1-Ebk-926991:00 PRANEETH+ELPU24 3467 ALBUMIN,U 37.7 % (Normal) DSYJU-6-KIHI,U 3.2 % (Normal) UHEWK-2-MEZF,U 7.6 % (Normal) BETA GLOB,U 23.1 % (Normal) GAMMA GLOB,U 28.5 % (Normal) PRANEETH RESULT,U Comment (Normal) Comments: No monoclonality detected. M-SPIKE,UR% SeeNote % (Normal) Comments: Result: Not Observed PROTEIN, U24 62.1 {mg/24_hr} Range: 30.0-150.0 (Normal) PROTEIN,UR 2.3 mg/dL (Normal) Range: 0.0-15.0 0-Bdr-702149:15 C-REACTIVE PROT < 2.90 mg/L (Normal) Range: [...] <126 mg/dLsuggests IMPAIRED HOMEOSTASIS per A.D.A. criteria. 8-Jae-378250:15 ESR SED RATE 11 mm/h (Normal) Range: 0-20 1-Maq-317404:15 LDH 197 U/L (Abnormal) Range: 100-190 5-Jco-867932:15 LIPID HDL 30 mg/dL (Abnormal) Comments: Reference [...] CHOL 154 mg/dL (Normal) Comments: <200 mg/dL Tdjmmveqr949-138 mg/dL Borderline>240 mg/dL High Risk 0-Bgu-829538:15 PROT.[id number] NOTE Comment (Normal) Comments: Protein electrophoresis scan will follow via computer,mail, or catcher plug delivery.Performed at: [address] [id number] Director: Kamlesh Arana MD ALBUMIN,UR 54.2 % (Normal) GDKCU-2-UJLQ,U 1.2 % (Normal) AVNQS-2-OLEP,U 9.4 % (Normal) BETA GLOB,U 23.4 % (Normal) GAMMA GLOB,U 11.8 % (Normal) M-SPIKE,U SeeNote % (Normal) Comments: Result: Not Observed PROTEIN,UR 13.6 mg/dL (Normal) Range: 0.0-15.0 5-Iun-120076:15 SPE 316451 A/G RATIO 1.8 (Normal) Range: 0.7-2.0 GLOBULIN, [...] electrophoresis scan will follow via computer,mail, or catcher plug delivery. M-SPIKE SeeNote g/dL (Normal) Comments: Result: Not Observed GAMMA GLOBULIN 0.4 g/dL (Abnormal) Range: 0.5-1.6 ALBUMIN 3.9 g/dL (Normal) Range: 3.2-5.6 ALPHA-1 GLOBUL 0.2 g/dL (Normal) Range: 0.1-0.4 ALPHA-2 GLOBUL 0.7 g/dL (Normal) Range: 0.4-1.2 BETA GLOBULIN 0.9 g/dL (Normal) Range: 0.6-1.3 PROTEIN,TOTAL 6.1 g/dL (Normal) Range: 6.0-8.5 28-Lnz-148312:28 BRAIN/HEAD WITHOUT CONTRAST Radiology Report See Note (Normal) Comments: Exam Number: [id number] CT SCAN OF BRAIN HISTORYLytic lesion, lymphoma. [...] for confirmation. Reported By: TRUE NAGEL M.D. 34-Fan-075680:23 SPINE,CERVICAL WITHOUT CONTRAS Radiology Report See Note (Normal) Comments: Exam Number: [id number] CLINICAL:44 year old female with cervical radiculopathy. [...] tumor involvement. Reported By: SHARYN JASMINE M.D. 52-Ioq-360406:50 Blood Glucose , Office (60367) Blood Glucose , Office 105 (Normal) 27-Yax-777999:50 HgA1C , Office (11169) HgA1C , Office 6.1 % (Normal) Range: 4.6 - 7.1 27-Jum-929600:24 URINE GENESIS CULTURE-NITA COL Comments: PATIENT NOT FASTINGPERFORMED BY: [facility] Lrfngj5607 [address] [facility] [id number] Information: SRC:UR K03989 COUNT (94081) Antimicrobial MIHEAD (Normal) Comments: S = Susceptible; [...] mL (Normal) Urine Final report (Normal) Culture,Comprehensive 20-Wuc-244584:41 Urinalysis, Office (00834) UA - LEUKOCYTE ESTERASE Large (Normal) UA - NITRITE Negative (Normal) URINE UROBILINGN NITA TIMED Normal mg/dL (Normal) UA - PROTEIN 100 mg/dL (Normal) UA - PH 5.0 (Normal) UA - BLOOD Hemolyzed Large (Normal) UA - SPECIFIC GRAVITY 1.025 (Normal) UA - KETONES Negative mg/dL (Normal) UA - BILIRUBIN Negative (Normal) UA - GLUCOSE Negative (Normal) 9-Bkv-093189:19 BLOOD GAS, O2 SAT ONLY - INITL Radiology Report See Note (Normal) Comments: Exam Number: [id number] Procedure completed. Please see MEDICAL RECORDS reports in PCI - OP - OP NOTE LET - LETTER. Reported By: BOONE CH M.D. 2-Myg-015463:19 BLOOD GAS, O2 SAT ONLY - SUBSQ Radiology Report See Note (Normal) Comments: Exam Number: [id number] Procedure completed. Please see MEDICAL RECORDS reports in PCI - OP - OP NOTE LET - LETTER. Reported By: BOONE CH M.D. 4-Ldi-859031:19 BLOOD GAS, O2 SAT ONLY - SUBSQ Radiology Report See Note (Normal) Comments: Exam Number: [id number] Procedure completed. Please see MEDICAL RECORDS reports in PCI - OP - OP NOTE LET - LETTER. Reported By: BOONE CH M.D. :45 RHC/LHC/CORS/LV Radiology Report See Note (Normal) Comments: Exam Number: [id number] Procedure completed. Please see MEDICAL RECORDS reports [...] MIXED GRAM POSITIVE ORGANISMS :58 Urinalysis, Office (35082) UA - BILIRUBIN Negative (Normal) UA - BLOOD Negative (Normal) UA - GLUCOSE Negative (Normal) UA - KETONES Negative mg/dL (Normal) UA - LEUKOCYTE ESTERASE Small (Normal) Comments: aw UA - NITRITE Negative (Normal) UA - PH 6.0 (Normal) UA - PROTEIN Negative mg/dL (Normal) UA - SPECIFIC GRAVITY 1.010 (Normal) URINE UROBILINGN NITA TIMED Normal mg/dL (Normal) :53 HgA1C , Office (61818) HgA1C , Office 5.7 % (Normal) Range: 4.6 - 7.1 :53 Blood Glucose , Office (47224) Blood Glucose , Office 133 (Normal) :24 [...] (Normal) Range: 6.4-8.2 :53 HgA1C , Office (73056) HgA1C , Office 10.0 % (Abnormal) Range: 4.6 - 7.1 :53 Blood Glucose , Office (10907) Blood Glucose , Office 410 (Normal) :46 [...] mg/dL VLDL 49 mg/dL (Abnormal) Range: 5-40 6-Obi-771083:46 MICROALB:CRE UR MALB:CREAT 33.3 {mg/g_CRE} (Abnormal) MICROALBUMIN,UR 62.2 mg/L (Normal) UR CREAT 186.7 mg/dL (Normal) 41-Vpo-950088:11 LIPID Comments: PATIENT NOT FASTING/DEMANDED TO BE [...] mg/dL VLDL 31 mg/dL (Normal) Range: 5-40 93-Kkl-863656:11 LIVER Comments: PATIENT NOT FASTING/DEMANDED TO BE DRAWN ALT 43 U/L (Normal) Range: 30-65 D BILI 0.07 mg/dL (Normal) Range: 0.00-0.30 T BILI 0.35 mg/dL (Normal) Range: 0.00-1.00 ALB 3.4 g/dL (Normal) Range: 3.4-5.0 ALK P 210 U/L (Abnormal) Range: 50-136 AST 27 U/L (Normal) Range: 15-37 T PROT 6.4 g/dL (Normal) Range: 6.4-8.2 49-Wak-623660:23 Urinalysis, Office (31382) Comments: done BC UA - BILIRUBIN Negative (Normal) UA - BLOOD Hemolyzed Large (Normal) UA - GLUCOSE Large (Normal) Comments: > 1000mg/dL UA - KETONES Negative mg/dL (Normal) UA - LEUKOCYTE ESTERASE Moderate (Normal) UA - NITRITE Negative (Normal) UA - PH 6.0 (Normal) UA - PROTEIN 30 mg/dL (Normal) UA - SPECIFIC GRAVITY 1.010 (Normal) URINE UROBILINGN NITA TIMED Normal mg/dL (Normal) 73-Aka-858562:44 MYOCARD PERF SPECT REST/STRESS Radiology Report See Note (Normal) Comments: Exam Number: [id number] MYOCARDIAL PERFUSION SCAN TECHNIQUEThe patient was injected [...] of 37%. Reported By: NOE MORRIS M.D. 22-Pwg-48655:39 SPINE, LUMBAR W/W/O CONTRAST Radiology Report See Note (Normal) Comments: Exam Number: [id number] MAGNETIC RESONANCE IMAGING OF THE LUMBAR SPINE [...] other abnormality. Reported By: SUSAN GOMEZ M.D. 80-Jnd-963874:04 CULTURE, URINE URINE CULTURE See Note {CFU/mL} (Normal) Comments: COLONY COUNT 25,000-50,000 ORGANISM 1: MIXED GRAM POSITIVE ORGANISMS 82-[id number]:15 Urinalysis, Office (58881) UA - LEUKOCYTE ESTERASE Small (Normal) Comments: aw UA - NITRITE Negative (Normal) UA - PH 5.0 (Normal) UA - PROTEIN Negative mg/dL (Normal) URINE UROBILINGN NITA TIMED Normal mg/dL (Normal) UA - BILIRUBIN Negative (Normal) UA - BLOOD Negative (Normal) UA - GLUCOSE Negative (Normal) UA - KETONES Negative mg/dL (Normal) UA - SPECIFIC GRAVITY 1.025 (Normal) [id number]:09 Blood Glucose , Office (04321) Blood Glucose , Office 231 (Normal) 10-Yxj-150564:09 HgA1C , Office (23086) HgA1C , Office 7.1 % (Normal) Range: 4.6 - 7.1 [id number]:42 CBCD,SMEAR DIFF CELLS COUNTED 100 (Normal) HCT [...] 47-70 WBC 4.3 K/mm3 (Abnormal) Range: 4.4-11.0 52-Anl-864424:42 COMP METABOLIC A/G 1.2 {RATIO} (Normal) Range: [...] for patient's is the eGFRmultiplied by 1.212. [facility] Laboratory uses the abbreviated Modification [...] Disease W/O Kidney Disease>/= 90 Stage One Elrzkm70 - 89 Stage Two Suspect Decreased GFR30 [...] T PROT 6.5 g/dL (Normal) Range: 6.4-8.2 [id number] LIPID CHOL 182 mg/dL (Normal) Comments: <200 [...] mg/dL VLDL 36 mg/dL (Normal) Range: 5-40 78-Niz-471787:42 MICROALB:CRE UR MALB:CREAT 35.4 {mg/g_CRE} (Abnormal) MICROALBUMIN,UR 54.7 mg/L (Normal) UR CREAT 154.6 mg/dL (Normal) 33-Nth-321348:42 TSH 2.57 {uIU/mL} (Normal) Range: 0.34-4.82 77-Rjp-686876:40 CULTURE, URINE URINE CULTURE See Note {CFU/mL} (Normal) Comments: COLONY COUNT 1000-10,000 ORGANISM 1: MIXED GRAM POS & NEG ORGANISMS :36 Urinalysis, Office (09458) UA - BILIRUBIN Negative (Normal) UA - BLOOD Non Hemolyzed Trace (Normal) UA - KETONES Negative mg/dL (Normal) UA - LEUKOCYTE ESTERASE Moderate (Normal) UA - NITRITE Negative (Normal) UA - PH 5.0 (Normal) UA - PROTEIN Negative mg/dL (Normal) UA - SPECIFIC GRAVITY 1.015 (Normal) URINE UROBILINGN NITA TIMED Normal mg/dL (Normal) UA - GLUCOSE Negative (Normal) 41-Obb-853859:20 CULTURE, URINE URINE CULTURE See Note {CFU/mL} (Normal) Comments: COLONY COUNT 25,000-50,000 ORGANISM 1: MIXED GRAM POS & NEG ORGANISMS 23-Yds-106461:12 Urinalysis, Office (58694) UA - BILIRUBIN Negative (Normal) UA - [...] Range: 0.34-4.82 :28 Blood Glucose , Office (36243) Blood Glucose , Office 124 (Normal) :28 HgA1C , Office (72398) HgA1C , Office 6.1 % (Normal) Range: 4.6 - 7.1 :38 CERULOPLAS 1560 21.3 mg/dL (Normal) Range: 17.9-53.3 Comments: Performed At: [address] [id number] FERRITIN 189 ng/mL (Normal) Range: 8-252 :38 HEP-ABC [id number] HB CORE [id number] SeeNote (Normal) Comments: Result: Negative HB SURF [...] as: RIBA RESULT <TEST NOT PERFORMED> (Normal) 23-Gpp-264986:38 LIVER ALB 3.5 g/dL (Normal) Range: 3.4-5.0 ALK P 162 U/L (Abnormal) Range: 50-136 ALT 50 U/L (Normal) Range: 30-65 AST 21 U/L (Normal) Range: 15-37 D BILI 0.05 mg/dL (Normal) Range: 0.00-0.30 T BILI 0.38 mg/dL (Normal) Range: 0.00-1.00 T PROT 6.5 g/dL (Normal) Range: 6.4-8.2 93-Dux-310361:38 MITOCHN AB 6650 <20.0 {Units} (Normal) Range: [...] T PROT 6.5 g/dL (Normal) Range: 6.4-8.2 7-Ixm-182361:02 THYROID () Radiology Report See Note (Normal) Comments: Exam Number: [id number] THYROID ULTRASOUND HISTORYThyromegaly. High-resolution, real-time linear images [...] is recommended. Reported By: TRUE NAGEL M.D. 49-Wur-351772:05 Blood Glucose , Office (04856) Blood Glucose , Office 135 (Normal) 68-Rvy-333237:05 HgA1C , Office (56733) HgA1C , Office 5.6 % (Normal) Range: 4.6 - 7.1 12-Ars-78315:02 CBCD,SMEAR DIFF ANISO 1+ (Normal) CELLS COUNTED [...] Report See Note (Normal) Comments: Exam Number: [id number] CT BRAIN WITHOUT AND WITH INTRAVENOUS CONTRAST [...] clinically warranted. Reported By: AIDAN MASON M.D. 17-Kyt-189586:30 CBCD Comments: CALL [phone] TO [phone] BASO% 0.8 % (Normal) Range: 0-1 EO% [...] Range: 4.4-11.0 :30 COMP METABOLIC Comments: CALL [phone] TO [phone] A/G 1.5 {RATIO} (Normal) Range: 0.9-2.4 ALB [...] :30 LDH 206 U/L (Abnormal) Comments: CALL [phone] TO [phone] Range: 100-190 :30 URIC 5.7 mg/dL (Normal) Comments: CALL [phone] TO [phone] Range: 2.6-6.0 :30 CULT, DP WOUND Comments: [...] mg/dL (Abnormal) Range: 40-230 Comments: Performed At: [facility] [id number] [place], [place] [id number] :41 LDH 211 U/L (Abnormal) Range: 100-190 [...] 47-70 WBC 23.9 K/mm3 (Abnormal) Range: 4.4-11.0 63-Vvb-16500:30 AFB C&S 019695 Comments: Precautions*: CHEMO PRECAUTIONSSPECIMEN DESCRIPTION: #2 SAME SOURCE AFB CULT See Note Comments: TESTING PERFORMED AT [facility]. ORIGINAL REPORT ON FILE IN LAB CONTAINS ADDITIONAL TEST SITE INFORMATION. (Normal) CULTURE, ACID FAST NO ACID-FAST BACILLI ISOLATED AFTER 6 WEEKS. AFB SMEAR See Note Comments: [facility]. ORIGINAL REPORT ON FILE IN LAB CONTAINS ADDITIONAL TEST SITE INFORMATION. (Normal) ACID FAST BACILLUS SMEAR NO ACID-FAST BACILLI OBSERVED ON SMEAR. 13-D CULT,ALFREDITO See Note Comments: Precautions*: CHEMO PRECAUTIONSSPECIMEN DESCRIPTION: #1 SAME SOURCE ec-2 8482 (Normal) Comments: ` TESTING PERFORMED AT [facility]. ORIGINAL REPORT ON FILE IN LAB [...] 47-70 WBC 3.9 K/mm3 (Abnormal) Range: 4.4-11.0 57-Idq-74862:25 COMP METABOLIC A/G 1.4 {RATIO} (Normal) Range: [...] DRAWN 07/22/06-TEST MISSED Range: 100-190 :51 SPE [id number] A/G RATIO 1.3 (Normal) Range: 0.7-2.0 ALBUMIN [...] Evidenceof monoclonal protein is not apparent.Performed At: [facility] [place], [place] [id number] M-SPIKE SeeNote (Normal) Comments: Result: Not Observed NOTE: Comment (Normal) Comments: Protein electrophoresis scan will follow via mail orcourier. PROTEIN,TOTAL 6.5 g/dL (Normal) Range: 6.0-8.5 :49 Blood Glucose , Office (82658) Blood Glucose , Office 84 (Normal) :49 HgA1C , Office (28153) HgA1C , Office 6.6 % (Normal) Range: [...] eye, right : Follow up tomorrow with [facility] Indication: Pain, eye, right Need for [...] after tests Indication: Paroxysmal tachycardia Planned Observations Metabolic Panel, Basic (52712)Indication: Uncontrolled type II diabetes mellitus On: 68-Ebb-77797:44 Request METABOLIC PANEL, BASIC (34183)Indication: CHF (congestive heart failure) On: 21-Fbj-493620:05 Request CPK MB FRACTION (98123)Indication: SOB (shortness of breath) On: 03-Gzx-325286:21 Request Comments: stat ASSAY, TROPONIN, QUANTITATIVE (aka Troponin I) (60132)Indication: SOB (shortness of breath) On: 75-Iqa-847912:21 Request Comments: stat CBC W/AUTO DIFF WBC (28217)Indication: SOB (shortness of breath) On: :08 Request Comments: stat METABOLIC PANEL, COMPREHENSIVE (65450)Indication: SOB (shortness of breath) On: :08 Request Comments: stat D-Dimer (82936)Indication: SOB (shortness of breath) On: :08 Request Comments: stat BNTP (65640)Indication: SOB (shortness of breath) On: :08 Request Comments: stat CBC with auto diff (41800)Indication: Diabetes mellitus type II, controlled On: :03 Request LIPID PANEL (08477)Indication: Diabetes mellitus type II, controlled On: : Request METABOLIC PANEL, COMPREHENSIVE (63763)Indication: Diabetes mellitus type II, controlled On: :03 Request HGB A1C (27997)Indication: Diabetes mellitus type II, controlled On: :02 Request TSH (THYROID STIMULATING HORMONE) (00382)Indication: Acquired hypothyroidism On: :02 Request Metabolic Panel, Basic (21277)Indication: Hyponatremia On: 72-Buq-334139:00 Request TSH (19276)Indication: Diabetes mellitus type II, controlled On: :48 Request Vitamin B-12 (cyanocobalamin) (15214)Indication: B12 deficiency On: :45 Request CBC WITH MANUAL DIFF (72666)Indication: B12 deficiency On: :45 Request T3, FREE (TRIDOTHYRONINE) (66542)Indication: Thyroid nodule On: :48 Request Comments: add to labs already drawn T4, FREE (THYROXINE) (09081)Indication: Thyroid nodule On: :47 Request Comments: add to labs already drawn Digoxin (98728)Indication: Cardiomyopathy On: :44 Request LIPID PANEL (36829)Indication: Mixed hyperlipidemia On: :43 Request TSH (63222)Indication: Acquired hypothyroidism On: :43 Request Vitamin D Hydroxy (21742)Indication: Vitamin D deficiency On: 07-Cdb-930806:43 Request KGALR-TPPJZWBRHWG-EXGTQ (05731)Indication: Fatty liver On: 13-Ado-044949:42 Request VITAMIN B-12 (CYANOCOBALAMIN) (70715)Indication: Fatigue On: 82-Hrf-114031:42 Request URINALYSIS, W/ MICRO (30015)Indication: Diabetes mellitus type II, controlled On: 52-Cow-257590:30 Request MICROALBUMIN: CREATININE RATIO (93667) AND (28117)Indication: Diabetes mellitus type II, controlled On: 10-Fvb-481627:29 Request CBC with auto diff (42805)Indication: Diabetes mellitus type II, controlled On: : Request METABOLIC PANEL, COMPREHENSIVE (60186)Indication: Diabetes mellitus type II, controlled On: 15-Hmp-881044:29 Request HGB A1C (55303)Indication: Diabetes mellitus type II, controlled On: 84-Drw-724928:29 Request HEPATIC FUNCTION PANEL (88294)Indication: Elevated liver enzymes On: 1-Aol-636507:38 Request Comments: do in hospital tuesday when get US Metabolic Panel, Comprehensive (05697)Indication: Epigastric pain On: 04-Dzu-217356:54 Request Sed Rate Erythrocyte (81313)Indication: Epigastric pain On: 32-Vxy-373064:54 Request CBC, Platelets & Auto Diff (12324)Indication: Epigastric pain On: 63-Mvc-937564:54 Request OVA & PARASITE DIR SMEAR (27601)Indication: Diarrhea On: :53 Request OCCULT BLOOD FECES SCREEN (48800)Indication: Diarrhea On: 43-Ttt-543919:53 Request LEUKOCYTE COUNT, FECAL (14932)Indication: Diarrhea On: 54-Lem-969102:53 Request C-DIFFICILE, STOOL (98819)Indication: Diarrhea On: :53 Request GENESIS CULTURE-STOOL (08643)Indication: Diarrhea On: 38-Qgr-019607:53 Request Magnesium (60931)Indication: Fatigue On: 74-Avn-280215:42 Request Vitamin B-12 (cyanocobalamin) (01125)Indication: Fatigue On: 71-Yau-202800:41 Request MICROALBUMIN: CREATININE RATIO (92453) AND (09799)Indication: Diabetes mellitus type II, controlled On: :40 Request LIPID PANEL (06687)Indication: Mixed hyperlipidemia On: :39 Request CBC W/AUTO DIFF WBC (43830)Indication: Fatty liver On: :30 Request METABOLIC PANEL, COMPREHENSIVE (41533)Indication: Fatty liver On: :30 Request Vitamin D Hydroxy (65068)Indication: Vitamin D deficiency On: :30 Request TSH (10568)Indication: Acquired hypothyroidism On: :30 Request Digoxin (63194)Indication: Cardiomyopathy On: :29 Request LIPASE (96524)Indication: Epigastric pain On: : Request AMYLASE (40841)Indication: Epigastric pain On: :28 Request URINE GENESIS CULTURE-IDENTIFICATN (57359)Indication: Leukocytes in urine On: 04-Oqn-498068:38 Request MICROALBUMIN: CREATININE RATIO (72645) AND (77702)Indication: Essential hypertension with goal blood pressure less than 130/80 On: :58 Request CBC W/AUTO DIFF WBC (96483)Indication: Essential hypertension with goal blood pressure less than 130/80 On: 98-Zhh-09086:58 Request METABOLIC PANEL, COMPREHENSIVE (68452)Indication: Essential hypertension with goal blood pressure less than 130/80 On: :58 Request ONJSU-MZKAUWWQSEM-LRSEC (27931)Indication: Abnormal tumor markers On: :57 Request Vitamin D Hydroxy (73428)Indication: Vitamin D deficiency On: :09 Request LIPOPROTEIN, BLD, BY NMR (56957)Indication: Mixed hyperlipidemia On: :09 Request CBC W/AUTO DIFF WBC (24667)Indication: Diabetes mellitus type II, controlled On: 27-May-20179:09 Request METABOLIC PANEL, COMPREHENSIVE (61910)Indication: Diabetes mellitus type II, controlled On: 27-May-20179:09 Request Potassium Serum (23684)Indication: Hypopotassemia On: 10-Bqy-959764:02 Request RWIVW-WMAQIZKMORD-SVGWH (53890)Indication: Fatty liver On: :57 Request MICROALBUMIN: CREATININE RATIO (97181) AND (76645)Indication: Essential hypertension with goal blood pressure less than 130/80 On: :45 Request CBC W/AUTO DIFF WBC (13407)Indication: Essential hypertension with goal blood pressure less than 130/80 On: :45 Request METABOLIC PANEL, COMPREHENSIVE (74869)Indication: Essential hypertension with goal blood pressure less than 130/80 On: :45 Request Vitamin D Hydroxy (95130)Indication: Vitamin D deficiency On: :45 Request TSH (59089)Indication: Acquired hypothyroidism On: : Request LIPID PANEL (70824)Indication: Mixed hyperlipidemia On: :45 Request CBC W/AUTO DIFF WBC (35134)Indication: Diabetes mellitus type II, controlled On: :28 Request IBDWR-LQICHLDJEUR-SLTLA (80800)Indication: Fatty liver On: 02-Oiw-675414:03 Request METABOLIC PANEL, COMPREHENSIVE (25238)Indication: Mixed hyperlipidemia On: :55 Request LIPOPROTEIN, BLD, BY NMR (76262)Indication: Mixed hyperlipidemia On: :55 Request Metabolic Panel, Basic (56561)Indication: Hypopotassemia On: :55 Request Comments: 10 days CBC (AUTO) (37510)Indication: Uncontrolled type II diabetes mellitus On: :03 Request Vitamin D Hydroxy (08138)Indication: Vitamin D deficiency On: 00-Zsi-894924:03 Request MICROALBUMIN: CREATININE RATIO (80222) AND (84450)Indication: Uncontrolled type II diabetes mellitus On: :02 Request METABOLIC PANEL, COMPREHENSIVE (20481)Indication: Essential hypertension with goal blood pressure less than 130/80 On: 40-Rhd-428952:02 Request XARSZ-SDJFQQKVJXL-DAYXD (88736)Indication: Fatty liver On: : Request LIPID PANEL (88967)Indication: Mixed hyperlipidemia On: : Request TSH (75351)Indication: Thyroid nodule On: : Request CBC W/AUTO DIFF WBC (46806)Indication: Uncontrolled type II diabetes mellitus On: :47 Request METABOLIC PANEL, COMPREHENSIVE (78014)Indication: Uncontrolled type II diabetes mellitus On: :47 Request LIPID PANEL (92069)Indication: Mixed hyperlipidemia On: :47 Request Vitamin D Hydroxy (27029)Indication: Vitamin D deficiency On: :47 Request LSDRE-JEZVOGQQAEC-HSOHT (88657)Indication: Fatty liver On: : Request CBC W/AUTO DIFF WBC (36718)Indication: Uncontrolled type II diabetes mellitus On: : Request LIPID PANEL (69342)Indication: Mixed hyperlipidemia On: : Request MICROALBUMIN: CREATININE RATIO (30926) AND (28406)Indication: Uncontrolled type II diabetes mellitus On: : Request TSH (88577)Indication: Acquired hypothyroidism On: : Request METABOLIC PANEL, COMPREHENSIVE (79257)Indication: Essential hypertension with goal blood pressure less than 130/80 On: :25 Request Vitamin D Hydroxy (13242)Indication: Vitamin D deficiency On: : Request CALCIFEDIOL (90388)Indication: Vitamin D deficiency On: 11-Vmb-772064:44 Request Comments: to be done Jun 2015 after done with ergocalciferol URINE GENESIS CULTURE (NITA COL COUNT) (94502)Indication: UTI (lower urinary tract infection) On: 8-Ffp-681970:22 Request LIPID PANEL (23443)Indication: Mixed hyperlipidemia On: 7-Epc-097410:15 Request CBC W/AUTO DIFF WBC (79403)Indication: Uncontrolled type II diabetes mellitus On: :14 Request METABOLIC PANEL, COMPREHENSIVE (94632)Indication: Uncontrolled type II diabetes mellitus On: 2-Bbv-684190:14 Request TSH (19039)Indication: Acquired hypothyroidism On: 7-Cmb-160228:14 Request VLBFH-SZKWRQLPMUI-AZEDC (84341)Indication: Fatty liver On: 5-Lsd-614613:14 Request CBC, Platelets & Auto Diff (17678)Indication: HX, PERSONAL, MALIGNANCY, LYMPHATIC NEC On: 77-Ipm-77500:07 Request CBC WITH MANUAL DIFF (29258)Indication: Abnormal glucose tolerance test On: :33 Request MICROALBUMIN: CREATININE RATIO (48697) AND (83105)Indication: Abnormal glucose tolerance test On: :33 Request LIPID PANEL (37546)Indication: Mixed hyperlipidemia On: :31 Request METABOLIC PANEL, COMPREHENSIVE (24757)Indication: Abnormal glucose tolerance test On: :31 Request URINE GENESIS CULTURE-NITA COL COUNT (13806)Indication: Dysuria On: 64-Szr-117950:03 Request RETICULOCYTE COUNT (24911)Indication: Anemia On: :37 Request Iron (06495)Indication: Anemia On: :37 Request Ferritin (77343)Indication: Anemia On: :37 Request CBC (Auto) (63999)Indication: Anemia On: :37 Request CBC, Platelets & Auto Diff (33310)Indication: Fever On: 84-Gxm-66355:03 Request Metabolic Panel, Comprehensive (67084)Indication: Fever On: :03 Request HgA1C , Office (85415)Indication: Abnormal glucose tolerance test On: :55 Request CBC WITH MANUAL DIFF (67535)Indication: Abnormal glucose tolerance test On: :53 Request METABOLIC PANEL, COMPREHENSIVE (64830)Indication: Abnormal glucose tolerance test On: :53 Request LIPID PANEL (46710)Indication: Mixed hyperlipidemia On: :53 Request IQJJC-VNGQNNRDFPB-KTNNJ (35450)Indication: Fatty liver On: 24-Bvl-047984:53 Request PTT (Activated Partial Thromboplastin Time) (79876)Indication: Fatty liver On: :53 Request PT (Prothrobim Time) (05946)Indication: Fatty liver On: 06-Dvi-100267:53 Request MICROALBUMIN: CREATININE RATIO (28448) AND (31631)Indication: Abnormal glucose tolerance test On: 91-Nky-540887:49 Request Anti-TPO Antibody (99277)Indication: Acquired hypothyroidism On: :14 Request Comments: 1 month TSH (80960)Indication: Acquired hypothyroidism On: :13 Request Comments: 1 month T4, FREE (THYROXINE) (13163)Indication: Acquired hypothyroidism On: :13 Request Comments: 1 month T3, FREE (TRIDOTHYRONINE) (19322)Indication: Acquired hypothyroidism On: :13 Request Comments: 1 month CBC WITH MANUAL DIFF (70400)Indication: Abnormal glucose tolerance test On: :38 Request METABOLIC PANEL, COMPREHENSIVE (85097)Indication: Abnormal glucose tolerance test On: :38 Request LIPID PANEL (68184)Indication: Mixed hyperlipidemia On: :38 Request MICROALBUMIN: CREATININE RATIO (46362) AND (87310)Indication: Abnormal glucose tolerance test On: 02-Zwx-287500:56 Request CBC WITH MANUAL DIFF (78294)Indication: Elevated LFTs On: 30-Wzj-541452:56 Request METABOLIC PANEL, COMPREHENSIVE (21027)Indication: Elevated LFTs On: 80-Keq-123962:56 Request LIPID PANEL (41865)Indication: Mixed hyperlipidemia On: 98-Rdw-418924:56 Request TSH (24702)Indication: Acquired hypothyroidism On: 60-Jvb-201079:56 Request CBC WITH MANUAL DIFF (40944)Indication: Essential hypertension with goal blood pressure less than 130/80 On: :34 Request TSH (78262)Indication: Acquired hypothyroidism On: :34 Request METABOLIC PANEL, COMPREHENSIVE (70925)Indication: Fatty liver On: :33 Request LIPID PANEL (90068)Indication: Mixed hyperlipidemia On: :33 Request MICROALBUMIN: CREATININE RATIO (13764) AND (68541)Indication: Uncontrolled type II diabetes mellitus On: :46 Request TSH (59687)Indication: Acquired hypothyroidism On: :46 Request LIPID PANEL (77594)Indication: Mixed hyperlipidemia On: :45 Request METABOLIC PANEL, COMPREHENSIVE (27736)Indication: Elevated LFTs On: :45 Request HgA1C , Office (15049)Indication: Uncontrolled type II diabetes mellitus On: :28 Request URINE GENESIS CULTURE-NITA COL COUNT (33163)Indication: Cystitis, acute On: :43 Request URINE GENESIS CULTURE-IDENTIFICATN (01891)Indication: Dysuria On: :10 Request CBC WITH MANUAL DIFF (76848)Indication: Headache On: :56 Request METABOLIC PANEL, COMPREHENSIVE (45084)Indication: Headache On: 93-Zpb-095614:56 Request LIPID PANEL (38261)Indication: Mixed hyperlipidemia On: :56 Request TSH (81299)Indication: Acquired hypothyroidism On: :56 Request METABOLIC PANEL, COMPREHENSIVE (97513)Indication: Uncontrolled type II diabetes mellitus On: :28 Request HEPATIC FUNCTION PANEL (41178)Indication: Mixed hyperlipidemia On: :28 Request LIPID PANEL (70368)Indication: Mixed hyperlipidemia On: :28 Request LIPID PANEL (76986)Indication: Mixed hyperlipidemia On: 26-Jun-20109:39 Request MICROALBUMIN: CREATININE RATIO (95025) AND (02711)Indication: Uncontrolled type II diabetes mellitus On: :39 Request CBC WITH MANUAL DIFF (74952)Indication: Essential hypertension with goal blood pressure less than 130/80 On: 26-Jun-20109:39 Request METABOLIC PANEL, COMPREHENSIVE (21056)Indication: Elevated LFTs On: :39 Request TSH (46268)Indication: Acquired hypothyroidism On: :36 Request TSH (26846)Indication: Thyroid nodule On: 95-Iqs-351142:20 Request METABOLIC PANEL, COMPREHENSIVE (95655)Indication: Elevated LFTs On: 60-Psd-258424:19 Request LIPID PANEL (79090)Indication: Mixed hyperlipidemia On: 68-Wki-565161:19 Request C-REACTIVE PROTEIN (98769)Indication: Abnormal findings on diagnostic imaging of other specified body structures On: 30-Vjg-653387:02 Request SED RATE ERYTHROCYTE (06281)Indication: Abnormal findings on diagnostic imaging of other specified body structures On: 27-Okb-744895:02 Request LDH (LD) (LACTATE DEHYDROGENASE) (83181)Indication: Abnormal findings on diagnostic imaging of other specified body structures On: 15-Rti-905632: Request Urine Protein Electrophoresis (UPEP) (77125)Indication: Abnormal findings on diagnostic imaging of other specified body structures On: 68-Hkn-860301: Request Serum Protein Electrophoresis (SPEP) (78399)Indication: Abnormal findings on diagnostic imaging of other specified body structures On: 70-Ybl-594301: Request METABOLIC PANEL, COMPREHENSIVE (82301)Indication: Diabetes mellitus type II, controlled On: :19 Request LIPID PANEL (48118)Indication: Mixed hyperlipidemia On: :19 Request URINE GENESIS CULTURE-NITA COL COUNT (87942)Indication: Dysuria On: 13-Dwr-116600:58 Request HEPATIC FUNCTION PANEL (65839)Indication: Elevated LFTs On: 10-Ccn-275991:18 Request LIPID PANEL (44290)Indication: Mixed hyperlipidemia On: 72-Owt-938764:17 Request MICROALBUMIN: CREATININE RATIO (59004) AND (49790)Indication: Uncontrolled type II diabetes mellitus On: 5-Fie-941265:47 Request CBC WITH MANUAL DIFF (77049)Indication: Uncontrolled type II diabetes mellitus On: 2-Gtd-175643:47 Request METABOLIC PANEL, COMPREHENSIVE (50621)Indication: Uncontrolled type II diabetes mellitus On: 3-Osj-783795:47 Request HEPATIC FUNCTION PANEL ([id number])Indication: Elevated LFTs On: 9-Kai-726391:45 Request LIPID PANEL (21132)Indication: Mixed hyperlipidemia On: 3-Kgg-170286:44 Request HEPATIC FUNCTION PANEL (84613)Indication: Fatty liver On: 9-Vqp-454127:30 Request LIPID PANEL (85075)Indication: Mixed hyperlipidemia On: 7-Kcl-694724:30 Request URINE GENESIS CULTURE (NITA COL COUNT) (52795)Indication: Low back pain potentially associated with radiculopathy On: 42-Utn-946670:03 Request MICROALBUMIN: CREATININE RATIO (45075) AND (47129)Indication: Dysuria On: 16-Wxb-316009:05 Request LIPID PANEL (20683)Indication: Dysuria On: 08-Jtm-936661:05 Request TSH ([id number])Indication: Dysuria On: 76-Zpc-459837:05 Request METABOLIC PANEL, COMPREHENSIVE (57979)Indication: Dysuria On: 77-Ulg-947184:04 Request CBC WITH MANUAL DIFF (12032)Indication: Dysuria On: 83-Eju-070580:04 Request URINE GENESIS CULTURE-NITA COL COUNT (20260)Indication: Dysuria On: 62-Vxd-899406:45 Request URINE GENESIS CULTURE (NITA COL COUNT) (75775)Indication: Dysuria On: 48-Hid-621427:17 Request METABOLIC PANEL, COMPREHENSIVE (13003)Indication: Fatty liver On: 20-Zsl-99348:58 Request Magnesium (33146)Indication: Palpitations On: :51 Request TSH (62315)Indication: Palpitations On: :51 Request METABOLIC PANEL, COMPREHENSIVE (27372)Indication: Palpitations On: 66-Mtp-74267:51 Request CBC WITH MANUAL DIFF (05173)Indication: Palpitations On: 20-Srh-12006:51 Request GGT (Gamma Glutamyl Transferase) (35344)Indication: Elevated LFTs On: 86-Cgh-254786:16 Request HEPATIC FUNCTION PANEL (77577)Indication: Elevated LFTs On: 72-Pwt-452654:16 Request VITAMIN B-12 (CYANOCOBALAMIN) (17549)Indication: Fatigue On: 84-Dmw-10520:23 Request MICROALBUMIN URINE QUANT (29744)Indication: Diabetes mellitus type II, controlled On: 92-Pdq-07088:22 Request TSH (24003)Indication: Fatigue On: 06-Krl-05823:22 Request CBC WITH MANUAL DIFF (10942)Indication: Diabetes mellitus type II, controlled On: 52-Wio-99009:22 Request METABOLIC PANEL, COMPREHENSIVE (39761)Indication: Diabetes mellitus type II, controlled On: 92-Fqc-19335:22 Request LIPID PANEL (63555)Indication: Mixed hyperlipidemia On: 43-Brk-84532:22 Request HEPATIC FUNCTION PANEL (03548)Indication: Mixed hyperlipidemia On: :48 Request LIPID PANEL (63705)Indication: Mixed hyperlipidemia On: 71-Xue-480855:48 Request Comments: in 3 mos Planned Encounters Medical; Overnight Pulse Ox Placement - On: 20-Sep-2018 13:00 [facility] Visit, Nurse Medical; [facility] 2 Week FU - On: 29-Sep-2018 10:30 [facility] Fast DO, Sangeetha A Fast DO, Sangeetha A Planned Procedures CT - Abdomen (IV Contrast Needed)By: On: 12-Sep-2018 Intent Fast DO, Sangeetha A Fast DO, Sangeetha A Echo CompleteBy: Fast DO, Sangeetha A On: 04-Sep-2018 Intent Fast DO, Sangeetha A CTA CHEST W/W/O CONTRAST (98281)By: On: 04-Sep-2018 Intent Fast DO, Sangeetha A Fast DO, Sangeetha A Overnight Pulse OX (34634)By: Fast On: 04-Sep-2018 Intent DO, Sangeetha A Fast DO, Sangeetha A Spirometry (16036)By: Fast DO, On: 04-Sep-2018 Intent Sangeetha A Fast DO, Sangeetha A Comments: difficutly with insp effort severe restriction ELECTROCARDIOGRAM, COMPLETE (ECG) On: 04-Sep-2018 Intent (82013)By: Fast DO, Sangeetha A Fast DO, Comments: ekg- 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 and possible recent anterior wall mi- nonspecific st depression Sangeetha A Flu Vaccine (Quadrivalent) 39385Bi: On: 21-Jul-2018 Intent Fast DO, Sangeetha A Fast DO, Sangeetha A SCREENING DIGITAL TOMOSYNTHESIS OF On: 21-Jul-2018 Intent BREAST (64476)By: Fast DO, Sangeetha A Fast DO, Sangeetha A B 12 Injection, 1000 mcg ([id number])By: On: 31-May-2018 Intent Fast DO, Sangeetha A Fast DO, Sangeetha A Comments: [id number] [id number] given:left deltoid Given By: clarita albright ABN signed CT - Abdomen (IV Contrast Needed)By: On: 31-May-2018 Intent Fast DO, Sangeetha A Fast DO, Sangeetha A Doppler Ultrasound OtherBy: Fast DO, On: 19-May-2018 Intent Sangeetha A Fast DO, Sangeetha A Comments: left arm ULTRASOUND OF LIVER (50455)By: On: 24-Feb-2018 Intent Blanca KING, Jennifer Gregory PFT - CompleteBy: Fast DO, Sangeetha A On: 21-Oct-2017 Intent Fast DO, Sangeetha A Comments: at [facility] office SCREENING DIGITAL TOMOSYNTHESIS OF On: 21-Oct-2017 Intent BREAST ([id number])By: Fast DO, Sangeetha A Comments: end oct Fast DO, Sangeetha A EsophagramBy: Fast DO, Sangeetha A Fast On: 21-Oct-2017 Intent DO, Sangeetha A Comments: with 12 mm tablet ELECTROCARDIOGRAM, COMPLETE (ECG) On: 21-Oct-2017 Intent ([id number])By: Fast DO, Sangeetha A Fast DO, Sangeetha A Flu Vaccine (Quadrivalent) [id number]: On: 07-Jun-2017 Intent Fast DO, Sangeetha A [...] DO, Sangeetha A DEXA SCAN AXIAL SKELETON ([id number])By: On: 16-Aug-2016 Intent Fast DO, Sangeetha A Fast DO, Sangeetha A MAMMOGRAM, SCREENING, BOTH BREAST On: 16-Aug-2016 Intent ([id number])By: Fast DO, Sangeetha A Fast DO, Sangeetha A ELECTROCARDIOGRAM, COMPLETE (ECG) On: 16-Aug-2016 Intent ([id number])By: Fast DO, Sangeetha A Fast DO, Sangeetha A Flu Vaccine (Quadrivalent) [id number]: On: 16-Aug-2016 Intent Fast DO, Sangeetha A Fast DO, Sangeetha A Comments: FLUlot: [id number]/09site:Lt deltoidroute:IMdose:.5mlDEBRYCEK, [place] ADMINISTRATION OF INFLUENZA VIRUS On: 16-Aug-2016 Intent VACCINE ([id number])By: Fast DO, Sangeetha A Fast DO, Sangeetha A Ultrasound - ThyroidBy: Fast DO, On: 10-Nov-2015 Intent Sangeetha A Fast DO, Sangeetha A Ultrasound - LiverBy: Fast DO, Sangeetha On: 10-Nov-2015 Intent A Fast DO, Sangeetha A Flu Vaccine (Quadrivalent) [id number]: On: 08-Aug-2015 Intent Fast DO, Sangeetha A Fast DO, Sangeetha A Comments: Lot #[id number]-L dltd, IMDose prefilled syringegiven by:SIMONE Jasso and ABN signed MAMMOGRAM, SCREENING, BOTH BREAST On: 08-Aug-2015 Intent ([id number])By: Fast DO, Sangeetha A Fast DO, Sangeetha A Ultrasound - ThyroidBy: Fast DO, On: 08-Aug-2015 Intent Sangeetha A Fast DO, Sangeetha A Ultrasound - LiverBy: Fast DO, Sangeetha On: 08-Aug-2015 Intent A Fast DO, Sangeetha A ADMINISTRATION OF PNEUMOCOCCAL On: 01-Nov-2014 Intent VACCINE ([id number])By: Fast DO, Sangeetha A Fast DO, Sangeetha A PNEUM VAC ADLT/IMUMNOSPR, SBC/INTRM On: 01-Nov-2014 Intent ([id number])By: Fast DO, Sangeetha A Fast DO, Comments: Lot:[id number]:02/29/16Dose:0.5mgRoute:imSite:l armGiven By:BATSHEVA signed Sangeetha A Ultrasound - LiverBy: Fast DO, Sangeetha On: 05-Jul-2014 Intent A Fast DO, Sangeetha A BILATERAL MAMMOGRAMS ([id number])By: Fast On: 05-Jul-2014 Intent DO, Sangeetha A Fast DO, Sangeetha A Ultrasound - ThyroidBy: Fast DO, On: 05-Jul-2014 Intent Sangeetha A Fast DO, Sangeetha A ADMINISTRATION OF INFLUENZA VIRUS On: 05-Jul-2014 Intent VACCINE (G0008)By: Fast DO, Sangeetha A Comments: Influenzalot:[id number]:03/25/2015dose:0.5mLRoute: IMlocation:R armgiven by:marika Fast DO, Sangeetha A FLU VAC, SPLIT, >3 YEARS, INTRAMUSC On: 05-Jul-2014 Intent ([id number])By: Fast DO, Sangeetha A Fast DO, Sangeetha A INFUSION, NORMAL SALINE SOLUTION , On: 15-Apr-2014 Intent 250 CC ([id number])By: Ciesa SCIENTIFIC SOFTWARE ENGINEER, Hermelinda Rocephon Injection, 1 Gm ([id number])By: On: 15-Apr-2014 Intent Tatum SAUCEDO Angelina Mendoza Comments: Rocephin 1gmLot #[id number]. [id number] in R hand x 1 stick with a 22 gauge butterfly. Patient tolerated well with no c/o voiced. No infiltrate noted. Discontinued following infusion with no ecchymosis noted. KelleyQuestel. Radiology - Cervical SpineBy: Fast On: 06-Feb-2014 [...] SPLIT, >3 YEARS, INTRAMUSC On: 27-Jul-2013 Intent ([id number])By: Fast DO, Sangeetha A Fast DO, Sangeetha A Eprescribed prescriptions ([id number])By: On: 04-Jun-2013 Intent Delisa Melendez LPN SPECIMEN HANDLING/TRANSPORT On: 04-Jun-2013 Intent ([id number])By: Delisa Melendez LPN INFUSION, NORMAL SALINE SOLUTION , On: 15-Feb-2013 Intent 1000 CC (Special Coverage Comments: 500 cc Instructions Apply. See MCM: 2049) ([id number])By: Jennifer Rios MD HYDRATION IV INFUSION, INIT On: 15-Feb-2013 Intent ([id number])By: Jennifer Rios MD Ultrasound - ThyroidBy: Fast DO, On: 19-Jan-2013 Intent Sangeetha A Fast DO, Sangeetha A MAMMOGRAM, SCREENING, BOTH BREASTS On: 19-Jan-2013 Intent ([id number])By: Fast DO, Sangeetha A Fast DO, Comments: due in january Sangeetha A Eprescribed prescriptions ([id number])By: On: 19-Jan-2013 Intent Isabella Grigsby Pulse Oximetry ([id number])By: Seb, On: 29-Sep-2012 Intent Isabella Comments: 98% [...] MAMMOGRAM, SCREENING, BOTH BREASTS On: 24-Jan-2012 Intent ([id number])By: Fast DO, Sangeetha A Fast DO, Sangeetha A TDAP VACCINE >7 IM ([id number])By: Fast On: 04-Oct-2011 Intent DO, Sangeetha A Fast DO, Sangeetha A Comments: Lot:[id number]:08/12/13Amt:prefilledRoute:IMSite:right deltGiven By: NATALEE Spence Aerosol Treatment ([id number])By: Blanca On: 26-Aug-2011 Intent Jennifer KING Pulse Oximetry ([id number])By: Blanca On: 26-Aug-2011 Intent Jennifer KING SPECIMEN HANDLING/TRANSPORT On: 23-Jul-2011 Intent ([id number])By: Delisa Melendez LPN FLU VAC, SPLIT, >3 YEARS, INTRAMUSC On: 05-Jul-2011 Intent ([id number])By: Isabella Grigsby Comments: Lot #[id number]/20/12Site-left deltoidgiven by: Lisa Bello LPN Ultrasound - ThyroidBy: Fast DO, On: 05-Jul-2011 Intent Sangeetha A Fast DO, Sangeetha A MAMMOGRAM, SCREENING, BOTH BREASTS On: 05-Jul-2011 Intent ([id number])By: Fast DO, Sangeetha A Fast DO, Sangeetha A ADMINISTRATION OF INFLUENZA VIRUS On: 05-Jul-2011 Intent VACCINE (G0008)By: Isabella Grigsby Eprescribed prescriptions ([id number])By: On: 04-Jun-2011 Intent [address] DO CT - Brain/HeadBy: Fast DO, Sangeetha A On: 07-Oct-2010 Intent Fast DO, Sangeetha A Comments: with and without contrast MAMMOGRAM, SCREENING, BOTH BREASTS On: 26-Jun-2010 Intent ([id number])By: Tavon DO, Sangeetha A Fast DO, Sangeetha A ADMINISTRATION OF INFLUENZA VIRUS On: 26-Jun-2010 Intent VACCINE (G0008)By: Tavon DO, Sangeetha A Fast DO, Sangeetha A FLU VAC, SPLIT, >3 YEARS, INTRAMUSC On: 26-Jun-2010 Intent ([id number])By: Tavon DO, Sangeetha A Fast DO, Comments: Lot:[id number]:12/2010Dose:0.5mlRoute:IMSite:Left DeltoidGiven by: HEIDI Alberto A Ultrasound - ThyroidBy: Tavon DO, On: 07-Jan-2010 Intent Sangeetha A Fast DO, Sangeetha A CT - Spine/CervicalBy: Tavon DO, On: 15-Dec-2009 Intent Sangeetha A Fast DO, Sangeetha A Comments: 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 -- need to rule out Pulse Oximetry ([id number])By: Tavon DAVIS, On: 09-Jul-2009 Intent Sangeetha A Fast DO, Sangeetha A Spirometry ([id number])By: Tavon DO, On: 10-Jul-2009 Intent Sangeetha A Fast DO, Sangeetha A Comments: good effort and curve- mild restriciton Radiology - Chest- PA and LatBy: On: 09-Jul-2009 Intent Tavon DO, Sangeetha A Fast DO, Sangeetha A Pulse Oximetry ([id number])By: Tavon DO, On: 10-Jul-2009 Intent Sangeetha A Fast DO, Sangeetha A Comments: 98 FLU VAC, SPLIT, >3 YEARS, INTRAMUSC On: 09-Jul-2009 Intent ([id number])By: Isabella Grigsby Comments: Lot #[id number]-right deltoidDose0.5mlgiven by Juventino Nye LPN IMMUNIZ ADMNIN, 1 VAC, SNGL/COMBO On: 09-Jul-2009 Intent ([id number])By: Isabella Grigsby EKG ([id number])By: Tavon DO, Sangeetha A On: 10-Oct-2008 Intent [...] ADMNIN, 1 VAC, SNGL/COMBO On: 10-Jul-2008 Intent ([id number])By: Tavon DAVIS Sangeetha A Fast DO, Sangeetha A FLU VAC, SPLIT, >3 YEARS, INTRAMUSC On: 10-Jul-2008 Intent ([id number])By: Fast DO Sangeetha A Fast DO, Comments: injection given in left deltoid, pt tolerated welllot # [id number] Sangeetha A Holter Monitor 24 hrsBy: Fast DO, On: 10-Jul-2008 Intent Sangeetha A Fast DO, Sangeetha A EKG (29905)By: Marlene Reddy On: 10-Jul-2008 Intent Comments: ekg [...] DO, Sangeetha A Instructions Name Dates Details CHF [...] some palps- supposed to see rosetta in [facility] Diagnosis: BMI 31.0-31.9,adult, Nonsmoker, SOB (shortness [...] using tylenol and will go back to [place] if need be for shot-sugar fine-n foot [...] get metabolic acidosis- [facility] and [facility]- she was taken off metformin and lisinopril andthen went to [place] for couple weeks then had multiple falls sent back to hospital and transferred to [facility] for few weeks then to [place] [...] from Need for immunizati on against influenza), MDP WELLNESS, Encounter for screening mammogram for breast [...] Reason for hospitalization abdominal pain (Went to [facility] on 02/28/15). Hospitalization details include: [...] previously evaluated by a primary physician (at [facility]- Dr Reyes ). Presentation included lid [...] is helping her mood- has followup in [place] may 04 - her weight down 20 [...] of all the problems -goes back to [facility] on tuesday and psych in 2 [...] or less). 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
--- OUTSIDE RECORDS SUMMARY | 2018-10-21 23:41 | XMS RPT_ITS | Continuity of Care Document ---
:1965 Author Organization [facility] Address [facility] [address] [place] [address] Phone Care Team Providers Name Role Phone [...] Quantity: 60 {Tablet} Refills: 3 Ordered:19-May-2018 Long HISTOPATH TECH, Amelia L Start : 21-Oct-2017 End : [...] : 05-Jun-2018 End : 05-Jul-2018 Inactive ERGOCALCIFEROL, 18273JYTD (Oral Capsule) 1 (one) Capsule Capsule twice [...] : 23-Jul-2011 End : 02-Aug-2011 Inactive MAXITROL, 3.5-59353-2.1 (Ophthalmic Ointment) apply to eye lids as [...] hs (50 MG) Inactive Comments:Dr. Hankins NYSTATIN, 840768JJMX/ML (Mouth/Throat Suspension) 5cc Suspension 5 times daily [...] Quantity: 30 {Tablet} Refills: 0 Ordered:19-May-2018 Long HISTOPATH TECH, Amelia L Start : 12-May-2012 End : 19-May-2018 Discontinued Comments:This order discontinued per [facility]. ZOFRAN ODT, 4MG (Oral Tablet Dispersible) qd prn nausea (4 MG) End : 08-Aug-2015 Discontinued Comments:[facility] Allergies and Adverse Reactions Name Dates [...] get these every 6 weeks. mother see edvni Status: Resolved as of 08-Jan-2014 Elevated LFTs [...] and Lateral Result: Comments: See Note; NOTES: [facility] Imaging Services [address] [place] [address] Chest PA and Lateral MR#: [id number] Acct: [id number] Name: IFEOMA ASHRAF Rep #: [id number] : 1965 F 53 From: Dimitris Valderrama DO PCP: Sangeetha Irvin DO Status: REG CLI Study: Chest PA and Lateral Date of Exam: 07/14/18 Exam# [id number] Ordering Dr: Oscar Todd MANAGER TEST-C STUDY: X-RAY CHEST REASON FOR EXAM: Female, [...] Dimitris Valderrama DO at 8:47 EDT Tel [phone], Service support , CC: NUNU Todd; Sangeetha Irvin DO Head Tennis Professional: Signed 10-Jun-2018 Pacemaker Check Result: Comments: See Note; NOTES: [facility] [address] [place] [address] Pacemaker Check Date of Service: 06/09/18 09 MR#: [id number] Acct: [id number] Name: IFEOMA ASHRAF Rep #: [id number] : 1965 From: Danica Pickering Age/Sex: 53/F Location[facility] Status: Signed Billing Codes ICD Device Billing: ICD Dev Prog Eval, Single 06/09/18 09 <Elec tronically signed by Danica Pickering > Date Danica Pickering 06/10/18 1406<Electronically signed by Boone Ch MD> Cosigner Signat ure: Date (if applicable) Boone Ch MD CC: 08-Jun-2018 Cardiology Visit Report Result: Comments: See Note; NOTES: [facility] [address] [place] [address] OFFICE VISIT Date of Service: 05/31/18 MR#: [id number] Acct: [id number] Name: IFEOMA ASHRAF Rep #: [id number] : 1965 Provider: NUNU Todd Age/Sex: 53/F Location: [facility] Status: Signed with Addenda ADDENDUM by NUNU [...] discharged home with requested follow-up with [facility] neurology or local neurolo gist in [...] defibrillator (ICD) Z95.810 Generator change 11/13 @ [facility] LUPE Chapman Pacemaker check in February [...] prior to saving. Follow Up 6 Months (TRAY DELIVERY AIDE) 05/31/18 (GIUSEPPE) 06/01/18 0747 <Electronically signed [...] ral regurgitation and tricuspid regurgitation. She presented [facility] on March 08, 2018 after being found unresponsive in her bathroom. During this hospitalization she was found to have an acute left axillary and left brachial vein DVT and was started on Eliquis. She presented to [facility] emergency department in March 2018 for [...] Rate 100 Intake Visit Reasons: [facility] to [facility] to [facility] to [place] Allergies amitriptyline Adverse Reaction (Severe, Verified 05/31/18 [...] meq PO DAILY #30 tab 05/31/18 [Rx] [facility] Medical History Nonrheumatic mitral (valve) insufficiency [...] rter-defibrillator (ICD) Z95.810 Generator change 11/13 @ [facility] LUPE Chapman Pacemaker check in February [...] prior to saving. Follow Up 6 Months (TRAY DELIVERY AIDE) 05/31/18 (GIUSEPPE) Coding Level of Care [...] 1556 <Electronically signed by Oscar ANDRADE> Date [facility] Peyton griffin Signature: Date (if applicable) CC: Sangeetha Irvin DO 05-Jun-2018 Oncology Visit Report Result: Comments: See Note; NOTES: [facility] [address] 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 She had [...] stem cell transplant in February 2007 at [facility] with complete remission. She is on [...] Chronic Code Visit Office Visits / Consults: 48374 OV L3 Est 1325 <Electronically signed by Simeon Gresham MD> Date Simeon Pacheco Signature: Date (if applicable) CC: 26-May-2018 Venous Duplex Upper Extremity Result: Comments: See Note; NOTES: [facility] Cardiovascular Services [address] [place] [address] Venous Duplex US, Unilateral 05/25/18 0903 MR#: [id number] Acct: [id number] Name: IFEOMA SILVA Rep #: [id number] : 1965 53 From: Juanjo Russo MD [...] Dictated: 05/25/18 0903 Date Transcribed: 05/26/18 163 Head Tennis Professional: Signed 06-Apr-2018 Chest 1 View (Portable) Result: Comments: See Note; NOTES: [facility] Imaging Services [address] [place] [address] Chest 1 View (Portable) MR#: [id number] Acct: [id number] Name: MARIOWAQASIFEOMA Ashok Rep #: : 1965 F 53 From: Levy Lucas DO PCP: Sangeetha Irvin DO Status: PRE ER Study: Chest 1 View (Portable) Date of Exam: 04/06/18 Exam# [id number] Ordering Dr: Dejuan Bacon MD STUDY: X-RAY [...] , CC: Sangeetha Irvin DO; Dejuan Bacon Head Tennis Professional: Signed 05-Apr-2018 Brain/Head without Contrast Result: Comments: See Note; NOTES: [facility] Imaging Services [address] [place] [address] Brain/Head without Contrast MR#: [id number] Acct: [id number] Name: IFEOMA ASHRAF Rep # : [id number] : 1965 F 53 From: Levy Lucas DO PCP: Sangeetha Irvin DO Status: REG CLI Study: Brain/Head without Contrast Date of Exam: 04/05/18 Exam# [id number] Ordering Dr: Oscar Bartlett MD STUDY : [...] 14:06 EDT Tel , Service support 1- [phone], N.B. : The above information has been verbally conveyed by Levy Lucas DO to connected , Covering Physician, on 04/05/2018 14:06:03 (ET). CC: Sangeetha Irvin DO; Oscar Bartlett MD Head Tennis Professional: Signed 05-Apr-2018 Brain/Head without Contrast Result: Comments: See Note; NOTES: [facility] Imaging Services [address] [place] [address] Brain/Head without Contrast MR#: [id number] Acct: [id number] Name: IFEOMA ASHRAF Rep # : [id number] : 1965 F 53 From: Levy Lucas DO PCP: Sangeetha Irvin DO Status: REG CLI Study: Brain/Head without Contrast Date of Exam: 04/05/18 Exam# [id number] Ordering Dr: Oscar Bartlett MD STUDY : [...] 14:06 EDT Tel , Service support 1- [phone], N.B. : The above information has been verbally conveyed by Levy Lucas DO to connected , Covering Physician, on 04/05/2018 14:06:03 (ET). CC: Sangeetha Irvin DO; Oscar Bartlett MD Head Tennis Professional: Signed 31-Mar-2018 Cardiology Visit Report Result: Comments: See Note; NOTES: [facility] [address] [place] [address] OFFICE VISIT Date of Service: 03/31/18 MR#: [id number] Acct: [id number] Name: Ifeoma Ashraf Rep #: [id number] : 1965 Provider: Boone Ch MD Age/Sex: 53/F Location: [facility] Status: Signed HPI HPI Chief [...] who presented to the emergency department at [facility] on 03/08/2018 aft er being found [...] care unit. She was eventually transferred to [facility]. Her major problem at this [...] Visit Reasons: DC to [facility] 03-14 Emergency Communications Dispatcher Required: No Accompanied by: mother Is patient [...] therapy. I would like to obtain a research and development chemist ry profile to be able to appropriately adjust any diuretics. At this juncture it may be prudent to add Lasix 40 mg a day to her current regimen. 2. Presence of implantable cardioverter-defibrillator (I CD) Z95.810 Generator change 11/13 @ [facility] Dr. Ahmadi Plan She does have [...] months. 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 (switchboard troubleshooter) Coding Level of Care Code Off vis,est,level [...] Flow Screening Result: Comments: See Note; NOTES: [facility] Cardiovascular Services [address] [place] [address] 11/22/17 0803 MR#: [id number] Acct: [id number] Name: IFEOMA ASHRAF Rep #: [id number] [...] Dictated: 11/22/17 0803 Date Transcribed: 11/22/17 1518 Head Tennis Professional: Signed 18-Nov-2017 Office Visit Report Result: Comments: See Note; NOTES: [facility] Services [address] [place] [address]. [place] [address] OFFICE VISIT Date of Service: 11/17/17 MR#: [id number] Acct: [id number] Patient: IFEOMA ASHRAF Rep #: [id number] : 1965 Provider: Danica Pickering Age/Sex: 52/F Location: [facility] Status: Signed Comments Summary Comments: [...] office Interview Reason: scheduled follow up Superintendent Pressure: [employer] Name: Lan PRO Model: [id number] Serial #: [id number] Implant Date: 11/10/17 Year(s): 0 Implant Physician: [...] No drainage Bibiana ds Lead #1 Superintendent Pressure Lead 1: [employer]. [place] Model Lead 1: 7121Q/58 Serial# Lead 1: [id number] Date Implanted Lead 1: 10/10/09 Position Lead [...] in other diseases classified elsewhere I43 11/17/17 5380 <Electronically signed by Danica Pickering > Date Danica Pickering 11/18/17 0813<Electronically signed by Noe Morris MD> Cosigner Signature: Date (if applicable) Noe Morris MD CC: 10-Nov-2017 Operative Report Result: Comments: See Note; NOTES: [facility] Medical Records Department [address] [place] [address] Operative Report 11/10/17 1148 MR#: [id number] Acct: [id number] Name: SALOME ASHRAF Rep #: [id number] : 1965 52 From: Lior Ahmadi MD PCP: Sangeetha Irvin DO Status: REG [facility] Y Location: [facility] Operative Report Date of Procedure: 11/10/17 Preoperative diagnosis is device at end of life for normal battery depletion. Postoperative diagnosis same as above. After informed consent and IV antibiotics the patient was brought to the [facility] and the ski n over [...] chart documents provided by the device company shared services representative procedure summary. 11/10/17 1150 <Electronically signed by Lior Ahmadi MD > Date Lior Ahmadi MD CC: Sangeetha Irvin DO; Lior Ahmadi MD Signed 03-Nov-2017 Office Visit Report Result: Comments: See Note; NOTES: [facility] [address] [facility] [place] [address] OFFICE VISIT Date of Service: 11/03/17 MR#: [id number] Acct: [id number] Patient: IFEOMA ASHRAF Rep #: [id number] : 1965 Provider: Danica Pickering Age/Sex: 52/F Location: [facility] Status: Signed Comments Summary Comments: [...] office Interview Reason: routine follow up Superintendent Pressure: [employer] [place] Name: Current VR Model: 1211-36Q ICD Serial #: [id number] Implant Date: 10/10/09 Year(s): 8 Implant Physician: [...] Model Lead 1: 7121Q/58 Serial# Lead 1: [id number] Date Implanted Lead 1: 10/10/09 Position Lead [...] 11/03/17 1648<Electronically signed by Boone Ch MD> [facility] Signature: Date (if applicable) Boone Ch MD CC: 03-Nov-2017 Cardiology Visit Report Result: Comments: See Note; NOTES: [facility] [place] [address] OFFICE VISIT Date of Service: 11/03/17 MR#: [id number] Acct: [id number] Name: IFEOMA ASHRAF Rep #: [id number] : 1965 Provider: Boone Ch MD Age/Sex: 52/F Location: [facility] Status: Signed HPI HPI Details: IFEOMA ASHRAF, [...] 25 to 29 (25% per echo 03/11/2015) [facility] Medical History Type 2 diabetes mellitus [...] of automatic cardioverter/defibrillator (AICD) Z95.810 10/06/2009 @ [facility] Plan She is status post [...] being followed up at the [facility]. She is also on spironolactone [...] and Lateral Result: Comments: See Note; NOTES: [facility] Imaging Services [address] [place] [address] Chest PA and Lateral MR#: [id number] Acct: [id number] Name: IFEOMA ASHRAF Rep #: [id number] : 1965 F 52 From: Dimitris Valderrama DO PCP: Sangeetha Irvin DO Status: PRE [facility] Study: Chest PA and Lateral Date of Exam: 11/03/17 Exam# [id number] Ordering Dr: Boone Ch MD STUDY: X-RAY [...] Dimitris Valderrama DO at 18:21 EST Tel [phone], Se rvice support , CC: Boone Ch MD; Sangeetha Irvin DO Head Tennis Professional: Signed 14-Oct-2017 Office Visit Report Result: Comments: See Note; NOTES: [facility] [address] [place] [address]. [place] [address] OFFICE VISIT Date of Service: 10/12/17 MR#: [id number] Acct: [id number] Patient: IFEOMA ASHRAF Rep #: [id number] : 1965 Provider: Danica Pickering Age/Sex: 52/F Location: [facility] Status: Signed Comments Summary Comments: Single Chamber ICD Evaluation: Interrogation shows No VT/VF episodes since . No Alerts noted. Left pectoral pocket/incision w/o s/s of infection or erosion. Pt offers no cardiac complaints. Presenting rhythm shows Sinus Tachycardia @ 105 bpm. Left pectoral pocket/incision w/o s/s of infection or erosion. STEEL MOLDER=0%. Battery longevity approx 2.9 mos. At device check in June device showed longevity of 14 mos. D/T longevity decreasing quickly pt scheduled for ICD generator el gilliam with Dr. Ahmadi on 11/10/17 @ [facility]. Lead impedances, sensing and pace/sense threshold remain stable. No parameter changes made. Counters cleared. Pt scheduled for o.v and teaching on 11/03/17 and ICD g enerator change on 11/10/17. Device Device Date Interviewed: 10/12/17 Follow- up Location: in office Interview Reason: routine follow up Superintendent Pressure: 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 Model Lead 1: 7121Q/58 Serial# Lead 1: [id number] Date Implanted Lead 1: 10/10/09 Position Lead [...] IV Contrast Result: Comments: See Note; NOTES: [facility] Imaging Services [address] [place] [address] Abdomen WITH IV Contrast MR#: [id number] Acct: [id number] Name: IFEOMA ASHRAF Rep #: [id number] : 1965 F 52 From: Carl Vincent MD PCP: Sangeetha Irvin DO Status: REG CLI Study: Abdomen WITH IV Contrast Date of Exam: 06/15/17 Exam# [id number] Ordering Dr: Analisa Conway MD STUDY: CT [...] CC: Analisa Conway MD; Sangeetha Irvin DO Head Tennis Professional: Signed 15-Jun-2017 Spine Cervical without Contras Result: Comments: See Note; NOTES: [facility] Imaging Services [address] [place] [address] Spine Cervical without Contras MR#: [id number] Acct: [id number] Name: IFEOMA ASHRAF p #: [id number] : 1965 F 52 From: Zev Mandujano MD PCP: Sangeetha Irvin DO Status: REG CLI Study: Spine Cervical without Contras Date of Exam: 06/15/17 Exam# [id number] Ordering Dr: Analisa Conway MD STUDY: CT [...] CC: Analisa Conway MD; Sangeetha Irvin DO Head Tennis Professional: Signed 10-Feb-2017 Spine Lumbar without Contrast Result: Comments: See Note; NOTES: [facility] Imaging Services [address] [place] [address] Verdana 4d Spine Lumbar without Contrast MR#: [id number] Acct: [id number] Name: MARIOWAQASMARISEL Pulido Rep #: [id number] : 1965 F 51 From: Brian Gill MD PCP: Sangeetha Irvin DO Status: REG CLI Study: Spine Lumbar without Contrast Date of Exam: 02/10/17 Exam# [id number] Ordering Dr: Analisa Carr i, MD STUDY: [...] CC: Analisa Conway MD; Sangeetha Irvin DO Head Tennis Professional: Signed 20-Jan-2017 Liver Result: Comments: See Note; NOTES: [facility] Imaging Services [address] [place] [address] Zach 4d Liver MR#: [id number] Acct: [id number] Name: IFEOMA ASHRAF Rep #: [id number] : 1965 F 51 From: Vincent Bui DO PCP: Sangeetha Irvin DO Status: REG CLI Study: Liver Date of Exam: 01/20/17 Exam# [id number] Ordering Dr: Sangeetha Irvin DO STUDY: ABDOMINAL [...] Vincent Bui DO at 23:43 EDT Tel [phone], Service support , CC: Sangeetha Irvin DO Head Tennis Professional: Signed 20-Jan-2017 Thyroid Result: Comments: See Note; NOTES: [facility] Imaging Services [address] [place] Verdana 4d Thyroid MR#: [id number] Acct: [id number] Name: IFEOMA ASHRAF Rep #: [id number] : 1965 F 51 From: Jin Rolon PCP: Sangeetha Irvin DO Status: REG CLI Study: Thyroid Date of Exam: 01/20/17 Exam# [id number] Ordering Dr: Sangeetha Irvin DO STUDY: THYROID [...] Service support , CC: Sangeetha Irvin DO Head Tennis Professional: Signed 17-Nov-2016 Dexa Bone Density Study (HP) Result: Comments: See Note; NOTES: [facility] Imaging Services [address] [place] [address] Verdana 4d Dexa Bone Density Study (HP) MR#: [id number] Acct: [id number] Name: COL HARPAL ASHRAF Rep #: [id number] : 1965 F 51 From: Prashant Delgadillo MD PCP: Sangeetha Irvin DO Status: REG CLI Study: Dexa Bone Density Study (HP) Date of Exam: 11/17/16 Exam# [id number] Ordering Dr: Sangeetha Irvin DO STUDY: DUAL [...] Prashant Delgadillo MD at 10:52 EST Tel [phone], Service support [phone], CC: Sangeetha Irvin DO Head Tennis Professional: Signed 17-Nov-2016 SCREENING MAMM (CAD), BILAT Result: Comments: See Note; NOTES: [facility] Imaging Services [address] [place] [address] Verdana 4d SCREENING MAMM (CAD), BILAT MR#: [id number] Acct: [id number] Name: SALOME ASHRAF Rep #: [id number] : 1965 F 51 From: Prashant Delgadillo MD PCP: Sangeetha Irvin DO Status: [facility] CLI Study: SCREENING MAMM (CAD), BILAT Date of Exam: 11/17/16 Exam# [id number] Ordering Dr: Gary Irvin DO MAMMOGRAPHY - [...] biopsy of a clinically suspiciou s abnormality. [id number] Electronically Signed: Prashant Delgadillo MD at 12:55 EST Tel [phone], Service support [phone], CC: Sangeetha Irvin DO Head Tennis Professional: Signed 17-Nov-2016 SCREENING MAMM (CAD), BILAT Result: Comments: See Note; NOTES: [facility] Imaging Services [address] [place] [address] Verdana 4d SCREENING MAMM (CAD), BILAT MR#: [id number] Acct: [id number] Name: SALOME ASHRAF Ashok Rep #: [id number] : 1965 F 51 From: Prashant Delgadillo MD PCP: Sangeetha Irvin DO Status: REG CLI Study: SCREENING MAMM (CAD), BILAT Date of Exam: 11/17/16 Exam# [id number] Ordering Dr: Gary Irvin DO ADDENDUM by [...] delay biopsy of a clinically suspicious abnormality. [id number] Electronically Signed: Prashant Delgadillo MD at 13:07 EST Tel [phone], Service support [phone], 11/17/16 1310 Date cc: Sangeetha Irvin DO [...] delay biopsy of a clinically suspicious abnormality. [id number] Electronically Signed: Prashant Delgadillo MD at 12:55 EST Tel [phone], Ser vice support [phone], CC: Sangeetha Irvin DO Head Tennis Professional: Signed 19-Dec-2015 Liver Result: Comments: See Note; NOTES: [facility] Imaging Services [address] [place] [address] Verdana 4d Liver MR#: [id number] Acct: [id number] Name: IFEOMA ASHRAF Rep #: [id number] : 1965 F 50 From: Ziggy Santos MD PCP: Sangeetha Irvin DO Status: REG CLI Study: Liver Date of Exam: 12/19/15 Exam# [id number] Ordering Dr: Sangeetha Irvin DO STUDY: ABDOMINAL [...] Service support , CC: Sangeetha Irvin DO Head Tennis Professional: Signed 19-Dec-2015 Thyroid Result: Comments: See Note; NOTES: [facility] Imaging Services [address] [place] [address] Verdana 4d Thyroid MR#: [id number] Acct: [id number] Name: IFEOMA ASHRAF ep #: [id number] : 1965 F 50 From: Ziggy Santos MD PCP: Sangeetha Irvin DO Status: REG CLI Study: Thyroid Date of Exam: 12/19/15 Exam# [id number] Ordering Dr: Sangeetha Irvin DO STUDY: THYROID [...] at 10:56 EDT Tel , Service support [phone], CC: Sangeetha Irvin DO Head Tennis Professional: Signed 14-Aug-2015 Bilat Scrn Digital AND CAD Result: Comments: See Note; NOTES: [facility] Imaging Services [address] [place] [address] Verdana 4d Bilat Scrn Digital AND CAD MR#: [id number] Acct: [id number] Name: IFEOMA ASHRAF Rep #: [id number] : 1965 F 50 From: Prashant Delgadillo MD PCP: Sangeetha Irvin DO Status: REG CLI Study: Bilat Scrn Digital AND CAD Date of Exam: 08/14/15 Exam# [id number] Order ing Dr: Sangeetha Irvin DO MAMMOGRAPHY [...] Prashant Delgadillo MD at 10:49 EST Tel [phone], Service support [phone], CC: Sangeetha Irvin DO Head Tennis Professional: Signed 10-Mar-2015 Emergency Department Summary Result: Comments: See Note; NOTES: [facility] Medical Records Department [address] [place] [address] Emergency Department Summary MR#: [id number] Acct: [id number] Name: IFEOMA RASMUSSEN Rep #: [id number] : 1965 49 From: Mayito Roldan DO [...] way. Mayito Roldan DO T: NTS JOB: [id number] 03/10/15 2329 <Electronically signed by Mayito Roldan DO> Date Rosious Grecocarmelo DAVIS CC: Sangeetha Irvin DO Date Dictated: 02/28/15824 Date Transcribed: 02/28/15824 Head Tennis Professional: Signed 02-Mar-2015 Emergency Department Summary Result: Comments: See Note; NOTES: [facility] Medical Records Department [address] [place] [address] Emergency Department Summary MR#: [id number] Acct: [id number] Name: IFEOAM RASMUSSEN Rep #: [id number] : 1965 49 From: Alejandro Lopez DO [...] The patient has plans to go to [facility] on General. I will give her local surgeon's name if she wants to speak with them or she can certainly also speak with Dr. Irvin. CLINICAL IMPRESSION: Biliary colic. Alejandro Lopez DO T: ROCK JOB: [id number] 03/02/1543 <Electronically signed by Alejandro Lopez DO> Date Alejandro Lopez DO CC: Sangeetha Irvin DO Date Dictated: 718 Date Transcribed: 02/28/15718 Head Tennis Professional: Signed 28-Feb-2015 Discharge Instruction Result: Comments: See Note; NOTES: [facility] Medical Records Department [address] [address] [facility] [address] Discharge Instruction 02/28/15638 MR#: [id number] Acct: [id number] Name: IFEOMA ASHRAF Rep #: [id number] : 1965 49 From: Alejandro Lopez DO [...] problems, contact your doctor. Call [facility] ([phone]) or report to the closest ergency Room. Call 911 if necessary. 02/28/15639 <Electronically signed by Alejandro Lopez DO> Date Alejandro Lopez DO Cosign er Signature (If Indicated): Date CC: Sangeetha Irvin DO 28-Feb-2015 Gallbladder Result: Comments: See Note; NOTES: [facility] Imaging Services [address] [place] [address] Ultrasound Report MR#: [id number] Acct: [id number] Name: IFEOMA ASHRAF Rep #: [id number] : 1965 F 49 From: Prashant Delgadillo MD PCP: Sangeetha Irvin DO Status: REG ER Study: Gallbladder Date of Exam: 02/28/15 Exam# [id number] Ordering Dr: Alejandro oLpez DO STUDY: ABDOM INAL ULTRASOUND - RIGHT [...] Prashant Delgadillo MD at 8:15 EDT Tel [phone], Service support [phone], CC: Alejandro Lopez DO; Sangeetha Irvin DO Head Tennis Professional: Signed 11-Feb-2015 Spine Cervical without Contras Result: Comments: See Note; NOTES: [facility] Imaging Services [address] [place], [place] [address] [address] CAT Scan Report MR#: [id number] Acct: [id number] Name: IFEOMA ASHRAF Rep #: [id number] : 1965 F 49 From: Prashant Delgadillo MD PCP: Sangeetha Irvin DO Status: REG CLI Study: Spine Cervical without Contras Date of Exam: 02/11/15 Exam# [id number] Ordering Dr: Analisa Conway MD STUDY: CT [...] Prashant Delgadillo MD at 9:49 EDT Tel [phone], Service support [phone], CC: Analisa Conway MD; Sangeetha Irvin DO Head Tennis Professional: Signed 18-Jul-2014 Bilat Scrn Digital & CAD Result: Comments: See Note; NOTES: [facility] Imaging Services [address] [place] [address] Breast Imaging Report MR#: [id number] Acct: [id number] Name: IFEOMA ASHRAF Rep # : [id number] : 1965 F 49 From: Prashant Delgadillo MD PCP: Sangeetha Irvin DO Status: REG CLI Exam# [id number] Ordering Dr: Sangeetha Irvin DO MAMMOGRAPHY - [...] Prashant Delgadillo MD at 8:36 EDT Tel [phone], Nextivai ce support [phone], CC: Sangeetha Irvin DO Head Tennis Professional: Signed 18-Jul-2014 Liver Result: Comments: See Note; NOTES: [facility] Imaging Services [address] [place] [address] Ultrasound Report MR#: [id number] Acct: [id number] Name: IFEOMA ASHRAF Rep #: [id number] : 1965 F 49 From: Prashant Delgadillo MD PCP: Sangeetha Irvin DO Status: REG CLI Study: Liver Date of Exam: 07/18/14 Exam# [id number] Ordering Dr: Sangeetha Irvin DO STUDY: ABDOMINAL [...] Prashant Delgadillo MD at 9:34 EDT Tel [phone], Service support [phone], CC: Sangeetha Irvin DO Head Tennis Professional: Signed 18-Jul-2014 Thyroid Result: Comments: See Note; NOTES: [facility] Imaging Services [address] [place] [address] Ultrasound Report MR#: [id number] Acct: [id number] Name: IFEOMA ASHRAF Rep #: [id number] : 1965 F 49 From: Prashant Delgadillo MD PCP: Sangeetha Irvin DO Status: REG CLI Study: Thyroid Date of Exam: 07/18/14 Exam# [id number] Ordering Dr: Sangeetha Irvin DO STUDY: THYROID [...] Delgadillo MD at 8:41 EDT T el [phone], Service support [phone], CC: Sangeetha Irvin DO Head Tennis Professional: Signed 05-Feb-2014 Brain/Head W/WO Contrast Result: Comments: See Note; NOTES: [facility] Imaging Services [address] [place] [address] CAT Scan Report MR#: [id number] Acct: [id number] Name: IFEOMA ASHRAF Rep #: [id number] : 1965 F 48 From: Prashant Delgadillo MD PCP: Sangeetha Irvin DO Status: REG CLI Study: Brain/Head W/WO Contrast Date of Exam: 02/05/14 Exam# [id number] Ordering Dr: Fast, Sangeetha DO STUD Y: [...] Prashant Delgadillo MD at 9:19 EDT Tel [phone], Service support [phone], CC: Sangeetha Irvin DO Head Tennis Professional: Signed Immunization Name Dates Details Influenza (3 years and up) on: 10-Jul-2008 Comments: injection given in left deltoid, pt tolerated welllot # [id number] Influenza (3 years and up) on: 09-Jul-2009 Comments: Lot #[id number]-right deltoidDose0.5mlgiven by Juventino Nye LPN Family History [...] kg/m2 Body Surface Area Calculated 2.02 m2 42-Rwo-679962:59 Temperature 97.9 f Comments: Method: Temporal Pulse [...] W/Diff, Automated Comments: BMP TO [facility].CBCD, TSH, B12 TO DR. SANGEETHA IRVIN.[facility] Vsqrrreluc0186 [facility], [place], [address] Absolute Lymph 1.16 {X10_3/ul} (Normal) Range: 0.83-4.51 [...] 4.2-5.4 WBC 8.0 K/mm3 (Normal) Range: 4.4-11.0 87-Dkm-51255:22 Vitamin B12 659 pg/mL (Normal) Comments: BMP TO [facility].CBCD, TSH, B12 TO DR. SANGEETHA IRVIN.[facility] Wvvbyecsre7447 [place], [place], [address] Range: 211-911 80-Qoe-44735:20 Basic Metabolic Profile (BMP) Comments: BMP TO [facility].CBCD, TSH, B12 TO DR[address] SANGEETHA IRVIN.[facility] Bcdlshxkwe0109 [place], [address] GAP 9 (Normal) Range: 5-15 [...] A.D.A. criteria.Please note revised GLUCOSE reference range ieasykhuj72/02/2018. 87-Xip-25893:20 Thyroid Stim Hormone (TSH) Comments: BMP TO DULCE TIMMONS.CBCD, TSH, B12 TO DR. SANGEETHA IRVIN.[facility] Wztdcetmlk0285 [facility] [address]. [place], [place], [address] TSH 4.09 {uIU/mL} (Abnormal) Range: 0.358-3.74 32-Rjy-861851:23 Basic Metabolic Profile (BMP) Comments: [facility] Cqbijjmact2743 [facility]. [place], [place], [address] GAP 7 (Normal) Range: 5-15 CO2 30.0 [...] A.D.A. criteria.Please note revised GLUCOSE reference range nceditybv91/02/2018. 58-Mmv-894446:23 BNP,B-Type NATRIURETIC PEPTIDE Comments: [facility] Ypiddwlmoh0164 [facility] [address]. [place], [place], [address] B-TYPE JACKIE PEP 892.7 pg/mL (Abnormal) Range: 0-100 10-Nmr-983918:23 CBC W/Diff, Automated Comments: [facility] Paitpciqsl3180 [facility] [address]. [place], [place], [address] Absolute Lymph 1.23 {X10_3/ul} (Normal) Range: 0.83-4.51 [...] 4.2-5.4 WBC 7.2 K/mm3 (Normal) Range: 4.4-11.0 46-Qgy-533412:41 CBC W/Diff, Automated Comments: Reason for Laboratory Test .[facility] Pame[address]ugnak6[address] [place], [place], [address] Absolute Lymph 0.85 {X10_3/ul} (Normal) Range: 0.83-4.51 [...] 4.2-5.4 WBC 5.7 K/mm3 (Normal) Range: 4.4-11.0 08-Qqz-703375:41 Comprehensive Metabolic Profil Comments: Reason for Laboratory Test .Serial Specimen #1, #2 or #3? [facility] Eavhtjorek50[address] [place], [address] GAP 8 (Normal) Range: 5-15 CO2 28.0 [...] A.D.A. criteria.Please note revised GLUCOSE reference range yiffwbjof74/02/2018. 81-Ixm-196526:41 LDH 224 U/L (Normal) Comments: Reason for Laboratory Test .Serial Specimen #1, #2 or #3? [facility] Jxziilxzxj6820 [address] [place], [place], [address] Range: 84-246 8-Zie-978115:41 URINE GENESIS CULTURE-IDENTIFICATN Comments: add to urine in lab; PATIENT NOT FASTINGPERFORMED BY: [facility] [id number] Information: SRC: ([id number]) Result 1 ENTEAE (Abnormal) Comments: Enterobacter aerogenes1,000 [...] Range: 0.0-8.3 Comments: Khanh ECLIA methodologyPerformed at: [facility]CoKind[facility] Hospital at MorrisWsqqqw360[address] [place] [id number] Director: Omar Hood PhD, Phone: [phone] :46 CBC W/Diff, Automated Comments: [facility] Rcsopxlwzp1741 [address] [place], [place], [address] Absolute Lymph 0.95 {X10_3/ul} (Normal) Range: 0.83-4.51 [...] 4.2-5.4 WBC 5.6 K/mm3 (Normal) Range: 4.4-11.0 16-Iuz-65416:46 Comprehensive Metabolic Profil Comments: PLEASE ADD T3F T4F TO BLOOD FROM 05-25-[address] Ysidkrqoyg8981 [facility] [place], [place], [address] GAP 9 (Normal) Range: 5-15 CO2 28.0 [...] A.D.A. criteria.Please note revised GLUCOSE reference range wozpjblqz19/02/2018. :46 Digoxin Level Comments: [facility] [address] [place], [place], [address] DIG 0.71 ng/mL (Abnormal) Range: 0.80-2.00 :46 Free T3 Comments: PLEASE ADD T3F T4F TO BLOOD FROM 05-25-[address] Zcydaqrukx8114 [facility] [address]. [place], [place], [address] FREE T3 3.2 pg/mL (Normal) Range: 2.18-3.98 :46 Hemoglobin A1c Comments: [address] [place], [place], [address] HGB A1C 5.4 % (Normal) Range: 4.2-6.3 :46 Lipid Profile Comments: PLEASE ADD T3F T4F TO BLOOD FROM 05-25-[address] Iqtlinxpix2579 [address] [place], [place], [address] VLDL 22 mg/dL (Normal) Range: 5-40 LDL [...] High Risk :46 Microalb:Creat Ratio,Random UR Comments: [facility] Mpwibahdwn6799 [place], [address] MALB:CREAT 7.8 {mg/g_CRE} (Normal) MICROALBUMIN,UR 10.9 mg/L (Normal) UR CREAT 139.00 mg/dL (Normal) :46 T4 Free Direct Comments: PLEASE ADD T3F T4F TO BLOOD FROM 05-25-[address] Dgbyawjrlt7385 [address] [place], [place], [address] T4 FREE DIRECT 1.11 ng/dL (Normal) Range: 0.76-1.46 :46 Thyroid Stim Hormone (TSH) Comments: PLEASE ADD T3F T4F TO BLOOD FROM 05-25-[address] Ikpqbulchz2636 [place], [address] TSH 0.31 {uIU/mL} (Abnormal) Range: 0.358-3.74 :46 Urinalysis, Complete Comments: How was Urine Obtained? CLEAN [facility] Jrqazbxrrg3880 [place], [address] MUCUS, URINE 0 SEEN {/hpf} [...] :46 Vitamin B12 368 pg/mL (Normal) Comments: [facility] Nibansrwhr5806 [address] [place], [address] Range: 211-911 18-Hwf-05813:46 Vitamin D,25 Hydroxy Comments: [facility] Rdmpqbsxjb9527 [place], [address] Vitamin D 25-OH 64.5 ng/mL (Normal) Range: 29.95-100.01 Comments: Vitamin D 25(OH) Status Range Deficiency <20 ng/mL (50nmol/L) Insuffciency 20 - 30 ng/mL (50 - 75 nmol/L) Sufficiency 30 - 100 ng/mL (75 - 250 nmol/L) Toxicity >100 ng/mL (>250 nmol/L) 50-Nyu-249176:52 Urinalysis, Complete Comments: Order Date: 04/06/18Has pt arrived? YHow was Urine Obtained? [facility] Hthvnvwuhj0[address] [place], [address] HYALINE CAST 5-10 SEEN {/lpf} (Normal) [...] (Normal) CLARITY Cloudy (Normal) COLOR Yellow (Normal) 41-Oze-358512:30 CBC W/Diff, Automated Comments: [facility] Lkvaclnirz5[address] [place], [place], [address] OVALOCYTE RARE (Normal) MACROCYTE 1+ (Normal) ANISO [...] 4.2-5.4 WBC 9.1 K/mm3 (Normal) Range: 4.4-11.0 50-Hrs-040930:30 Comprehensive Metabolic Profil Comments: [facility] Vyrewqrmka90[address] [place], [place], [address] GAP 12 (Normal) Range: 5-15 CO2 30.0 [...] Comments: Please note revised GLUCOSE reference range hweirytsv11/02/2018. 59-Mes-748386:30 Lactic Acid Comments: Yes/No query for Sepsis Lactate Rule [facility] Eyxpzvmecr[address] [place], [place], [address] LACTIC ACID 6.7 mmol/L (Abnormal) Range: 0.4-2.0 Comments: Critical Result(s) Called Lisa RIVERA at: 20:23: by: BRITTANY TORRES 09-Kpd-279921:30 Partial Thromboplast Time Comments: [facility] Asowbebrag0408 [address] [place], [place], [address] PTT 41.3 s (Abnormal) Range: 24.1-36.2 56-Zrf-261774:30 Prothrombin Time w/INR Comments: [facility] Mwiazvjcgc8157 [address] [place], [place], [address] INR 2.3 (Normal) PROTIME 25.6 s (Abnormal) Range: 11.7-14.9 29-Rou-477106:30 Troponin-I Comments: [facility] Krpgoffkls4561 [address] [place], [place], [address] TROPONIN-I 0.046 ng/mL (Abnormal) Comments: TROPONIN-I EXPECTED [...] angiographical evidence. PLEASE NOTE: REFERENCE RANGES EDITED 02/06/1805-Apr-201847-Xnt-677956:08 Ammonia Comments: [facility] Uawgrsmruk9926 [address] [place], [place], [address] AMMONIA 20.0 umol/L (Normal) Range: 11-32 48-Jfa-602118:08 CBC-Complete Blood Cnt No Diff Comments: [facility] Ianngijqtl0492 [address] [place], [address] MPV 10.6 fL (Normal) Range: 6.2-12.0 PLT [...] 4.2-5.4 WBC 6.6 K/mm3 (Normal) Range: 4.4-11.0 92-Irz-384121:08 Comprehensive Metabolic Profil Comments: [facility] Eaxlrlpxxk2241 [place], [place], [address] GAP 9 (Normal) Range: 5-15 CO2 35.0 [...] Comments: Please note revised GLUCOSE reference range ransruduw76/02/2018. 50-Lsj-052127:08 Differential Comment Comments: [facility] Ubihnpdgru7509 [address] [place], [place], [address] SMEAR COMMENT COMMENT (Normal) Comments: SLIDE SCANNED - 1+ ANISO NOTED. 27-Hru-19761:55 Urinalysis, Complete Comments: How was Urine Obtained? [facility] SPECIM[facility] Ukxhthbapi5290 [address] [place], [place], [address] AMORPHOUS 2+ (Normal) HYALINE CAST 5-10 SEEN [...] (Normal) :55 Urine Drug Screen (VISTA) Comments: [facility] Fsluyfkjtz8185 [address] [place], [place], [address] TO BE CONFIRMED (Normal) Comments: CONFIRMATORY TESTING [...] USE TESTMNEMONIC: MACA :59 Bedside Glucose Comments: [facility] LaboratoryPoint of Ynds[address] [place], [place] [address] BEDSIDE GLU 169 mg/dL (Abnormal) Range: 70-110 Comments: MANAGEMENT OF PATIENT CARE PER NURSING PROTOCOL :35 Basic Metabolic Profile (BMP) Comments: [facility] Obbnaiaxza2207 [address] [place], [place], [address] GAP 16 (Abnormal) Range: 5-15 CO2 15.0 mmol/L (Abnormal) Range: 21.0-32.0 CL 104 mmol/L (Normal) Range: 98-107 K 6.2 mmol/L (Abnormal) Range: 3.5-5.1 Comments: Critical Result(s) Called at: 01:06:28 03/08/2018 by:ANSLEY STANFORD,DIRECT SERVICE PROVIDER NA 135 mmol/L (Abnormal) Range: 136-145 CA [...] A.D.A. criteria.Please note revised GLUCOSE reference range nypjvublz75/02/2018. 61-Qsr-648843:59 Acetaminophen (Tylenol) Level Comments: [facility] Tkedimqbov38[address] [place], [place], [address] ACETAMINOPHEN 4.9 ug/mL (Abnormal) Range: 10.0-30.0 Comments: Slight Icterus, Result may be falsely decreased. :59 Acetone Serum Comments: [facility] Dudebbxajq0097 [place], [address] ACETONE SERUM NEGATIVE (Normal) 64-Vhb-466581:59 Alcohol, Blood (Medical)-Serum Comments: [facility] Wzjkqejwla8007 [place], [address] SERUM ETOH 8.0 mg/dL (Normal) Comments: The serum:whole blood ethanol ratio is approximately 1.14and varies slightly with hematocrit.Medical Alcohol reference interval and critical value innon-tolerant individuals; 50 - 100 Impairment 100 Intoxication 100 - 250 Severe Poisoning 250 - 400 Deep/possible fatal coma 22-Mbs-317118:59 Digoxin Level Comments: [facility] [address] [place], [place], [address] DIG 0.32 ng/mL (Abnormal) Range: 0.80-2.00 62-Wvq-100425:59 Lactic Acid Comments: Yes/No query for Sepsis Lactate Rule [facility] Awuiwaqvud5299 [address] [place], [place], [address] LACTIC ACID 12.4 mmol/L (Abnormal) Range: 0.4-2.0 Comments: Critical Result(s) Called at: 00:52:58 03/08/2018 by:ANSLEY OWENSDIRECT SERVICE PROVIDER 66-Vps-490527:59 Partial Thromboplast Time Comments: [place] [address] [place], [address] PTT 33.7 s (Normal) Range: 24.1-36.2 24-Rwy-938389:59 Prothrombin Time w/INR Comments: [place] [address] [place], [address] INR 2.4 (Normal) PROTIME 26.4 s (Abnormal) Range: 11.7-14.9 :59 Salicylate Comments: [place] [address] [place], [address] SALICYLATE < 1.7 mg/dL (Abnormal) Range: 2.8-20.0 Comments: Slight Icterus, Result may be falsely decreased. :02 Blood Gases by [facility] Comments: [place] [address] [place] [address] SO2 ISTAT 99 % (Normal) [...] TYPE ART (Normal) :52 Bedside Glucose Comments: [place] [address] [place] [address] BEDSIDE GLU 214 mg/dL (Abnormal) Range: 70-110 Comments: MANAGEMENT OF PATIENT CARE PER NURSING PROTOCOL 74-Mto-518284:37 Basic Metabolic Profile (BMP) Comments: [place] [address] [place], [place], [address] GAP 19 (Abnormal) Range: 5-15 CO2 11.0 [...] A.D.A. criteria.Please note revised GLUCOSE reference range unqbsiepa58/02/2018. 92-Ene-226350:37 CBC W/Diff, Automated Comments: [facility] Uyvbstpzwf3276 [address] [place], [place], [address] CRENATED RBC 1+ (Normal) ANISO 1+ (Normal) [...] K/mm3 (Normal) Range: 4.4-11.0 :37 Lipase Comments: [facility] [address]onf[address]gzv[address] [place] [address], [address] LIPASE 86 U/L (Normal) Range: 73-393 :37 Liver Profile Comments: [facility] Taokwg[address]ps[address] [place] [address], [address] D BILI 1.07 mg/dL (Abnormal) Range: 0.00-0.30 T BILI 2.40 mg/dL (Abnormal) Range: 0.20-1.00 ALT 120 U/L (Abnormal) Range: 13-56 ALK P 94 U/L (Normal) Range: 45-117 AST 149 U/L (Abnormal) Range: 15-37 Comments: Moderate Hemolysis, Result may be falsely increased. GLOB 2.9 g/dL (Normal) Range: 2.2-4.2 ALB 3.0 g/dL (Abnormal) Range: 3.2-5.0 T PROT 5.9 g/dL (Abnormal) Range: 6.4-8.2 :37 Magnesium Comments: [facility] [address] [place], [address] MG 2.0 mg/dL (Normal) Range: 1.6-2.6 Comments: Moderate Hemolysis, Result may be falsely increased. :37 Troponin-I Comments: [facility] [address] [place], [address] TROPONIN-I 0.081 ng/mL (Abnormal) Comments: TROPONIN-I EXPECTED [...] angiographical evidence. PLEASE NOTE: REFERENCE RANGES EDITED 02/06/1824-Feb-20187-Wlq-389977:21 CMV ANTIBODY (46510) Comments: today; PATIENT NOT FASTINGPERFORMED BY: [employer] Ixdpms5269 [facility] [id number] Cytomegalovirus (CMV) Ab, IgG <0.60 U/mL (Normal) Range: 0.00-0.59 Comments: Negative <0.60 Equivocal 0.60 - 0.69 Positive >0.69 9-Fcz-250786:21 HEPATITIS PANEL (99874) Comments: today; PATIENT NOT FASTINGPERFORMED BY: [facility] Media GroupNor-Lea General HospitalXvsxsp6819 [facility] [id number] Hep C Virus Ab <0.1 {s/co_ratio} (Normal) Range: 0.0-0.9 Comments: Negative: < 0.8 Indeterminate: 0.8 - 0.9 Positive: > 0.9 . The CDC recommends that a positive HCV antibody result be followed up with a HCV Nucleic Acid Amplification test (627103). Hep B Core Ab, IgM Negative (Normal) HBsAg Screen Negative (Normal) Hep A Ab, IgM Negative (Normal) 1-Lrt-583798:21 EBV Panel (17291) Comments: today; PATIENT NOT FASTINGPERFORMED BY: REINALDO [facility] Vpjmbt8901 [facility] [id number] Interpretation: SPRCS (Normal) Comments: EBV Interpretation Chart [...] <36.0 Equivocal 36.0 - 43.9 Positive >43.9 23-Vcq-095196:19 CBC W/Diff, Automated Comments: Order Date: 02/23/18Order Info: 0184-1 - CBCDOrder Info: 18312-8 - [facility] Wkshhjzmjt5313 [place], [address] MACROCYTE 1+ (Normal) ANISO RARE [...] 4.2-5.4 WBC 6.9 K/mm3 (Normal) Range: 4.4-11.0 90-Xsb-753635:19 Comprehensive Metabolic Profil Comments: Order Date: 02/23/18Order Info: 0786-1 - CMPOrder Info: 1798-8 - AMYOrder Info: 3040-3 - [facility] Yzfalmnuhy5396 [address] [place], [place], [address] GAP 11 (Normal) Range: 5-15 CO2 25.0 [...] A.D.A. criteria.Please note revised GLUCOSE reference range vzjvdencl24/02/2018. 92-Dmg-717927:19 Erythrocyte Sed Rate Comments: Order Date: 02/23/18Order Info: 0184-1 - CBCDOrder Info: 48313-1 - [facility] Uonusgrthe9722 [place], [address] SED RATE 16 mm/h (Normal) Range: 0-30 20-Wsd-173789:19 Lipase (40827) Comments: Order Date: 02/23/18Order Info: 0786- 1 - CMPOrder Info: 1798-8 - AMYOrder Info: 3040-3 - [facility] Jsmbwzbolc7[address] [place], [address] LIPASE 92 U/L (Normal) Range: 73-393 37-Nvc-355708:19 Amylase (11316) Comments: Order Date: 02/23/18Order Info: 0786- 1 - CMPOrder Info: 1798-8 - AMYOrder Info: 3040-3 - [facility] Ahgqtheeaz4575 [place], [address] ARIAN 27 U/L (Normal) Range: 25-115 9-Zso-395381:15 Amylase Comments: CMP, CBCD IS FOR DR ORONA IS FOR [facility] Sekgjlkczl30[address] [place], [place], [address] ARIAN 29 U/L (Normal) Range: 25-115 8-Mxk-138807:15 CBC W/Diff, Automated Comments: CMP, CBCD IS FOR DR ORONA IS FOR [facility] Waqygymodc0770 [address] [place], [address] ANISO 1+ (Normal) Absolute Lymph 0.41 {X10_3/ul} [...] 4.2-5.4 WBC 5.3 K/mm3 (Normal) Range: 4.4-11.0 0-Ubh-508732:15 Comprehensive Metabolic Profil Comments: CMP, CBCD IS FOR DR ORONA IS FOR [facility] Namliubmsu1754 [place], [address] GAP 9 (Normal) Range: 5-15 [...] A.D.A. criteria.Please note revised GLUCOSE reference range keggwhuzl97/02/2018. 3-Hvw-742930:15 Digoxin Level Comments: CMP, CBCD IS FOR DR ORONA IS FOR [facility] Vyjhctypqw1000 [place], [address] DIG 0.92 ng/mL (Normal) Range: 0.80-2.00 0-Cdb-961838:15 Lipase Comments: [facility], CBCD IS FOR DR ORONA IS FOR [facility] [address] [place], [address] LIPASE 101 U/L (Normal) Range: 73-393 7-Tda-535070:15 Lipid Profile Comments: [facility], CBCD IS FOR DR ORONA IS FOR [facility] Rqptvjowuc4879 [place], [address] VLDL 15 mg/dL (Normal) Range: [...] 200-240 mg/dL Borderline >240 mg/dL High Risk 8-Gvc-746147:15 Magnesium Comments: [facility], CBCD IS FOR DR ORONA IS FOR [facility] Oxngzrxeru4730 [place], [address] MG 1.8 mg/dL (Normal) Range: 1.6-2.6 8-Lcs-887395:15 Microalb:Creat Ratio,Random UR Comments: [facility], CBCD IS FOR DR ORONA IS FOR [facility] [address] [place], [address] MALB:CREAT 34.3 {mg/g_CRE} (Abnormal) MICROALBUMIN,UR 58.6 mg/L (Normal) UR CREAT 171.00 mg/dL (Normal) 7-Oia-401803:15 Thyroid Stim Hormone (TSH) Comments: CMP, CBCD IS FOR DR ORONA IS FOR [facility] Pbvqoxyufq6603 [place], [address] TSH 1.84 {uIU/mL} (Normal) Range: 0.358-3.74 8-Rey-027700:15 Vitamin B12 383 pg/mL (Normal) Comments: CMP, CBCD IS FOR DR ORONA IS FOR [facility] Trczwwmvdq8758 [place], [address] Range: 211-911 3-Qno-375766:15 Vitamin D,25 Hydroxy Comments: CMP, CBCD IS FOR DR ORONA IS FOR [facility] Hbnkkpkzfu0368 [place], [address] Vitamin D 25-OH 72.0 ng/mL (Normal) Range: 29.95-100.01 Comments: Vitamin D 25(OH) Status Range Deficiency <20 ng/mL (50nmol/L) Insuffciency 20 - 30 ng/mL (50 - 75 nmol/L) Sufficiency 30 - 100 ng/mL (75 - 250 nmol/L) Toxicity >100 ng/mL (>250 nmol/L) 39-Xxw-360984:14 Blood Glucose , Office (91820) Blood Glucose , Office 137 (Normal) 63-Jmv-794139:14 HgA1C , Office (67409) HgA1C , Office 6.1 % (Normal) Range: 4.6 - 7.1 56-Yps-89428:35 CBC W/Diff, Automated Comments: [facility] Skinojdtcb6522 [place], [address] Absolute Lymph 1.30 {X10_3/ul} (Normal) Range: [...] 4.2-5.4 WBC 4.2 K/mm3 (Abnormal) Range: 4.4-11.0 51-Hkp-19820:33 Comprehensive Metabolic Profil Comments: Reason for Laboratory Test [facility] Pjvsdrlvga7472 [place], [place], [address] GAP 8 (Normal) Range: 5-15 CO2 31.0 mmol/L (Normal) Range: 21.0-32.0 CL 99 mmol/L (Normal) Range: 98-107 K 3.4 mmol/L (Abnormal) Range: 3.5-5.1 NA 138 mmol/L (Normal) Range: 136-145 T BILI 0.70 mg/dL (Normal) Range: 0.20-1.00 ALT 27 U/L (Normal) Range: 13-56 Comments: Please note revised ALT reference range uaxqlzfwz19/28/2018. ALK P 102 U/L (Normal) Range: 45-117 [...] A.D.A. criteria.Please note revised GLUCOSE reference range rsimxelfy40/02/2018. [id number] LDH 198 U/L (Normal) Comments: Reason for Laboratory Test OVSerial Specimen #1, #2 or #3? [facility] [id number] [place], [place], [id number] Range: 84-246 [id number] Culture, Urine Comments: [facility] [address] [place], [place], [id number] CUUR See Note (Normal) Comments: VERBAL ORDER DR. IRVIN'S OFFICE Urine CultureORGANISM 1: Mixed Gram Positive OrganismsColony Count 11,000-25,000MIX CULTURE Mixed contaminants. Submit a new specimen if indicated. [id number] CBC W/Diff, Automated Comments: [facility] [address] [place], [place], [id number] Absolute Lymph 1.34 {X10_3/ul} (Normal) Range: 0.83-4.51 [...] 4.2-5.4 WBC 5.4 K/mm3 (Normal) Range: 4.4-11.0 [id number] Comprehensive Metabolic Profil Comments: Comments: [facility] [id number] [place], [address] GAP 7 (Normal) Range: 5-15 CO2 28.0 mmol/L (Normal) Range: 21.0-32.0 CL 100 mmol/L (Normal) Range: 98-107 K 3.9 mmol/L (Normal) Range: 3.5-5.1 NA 135 mmol/L (Abnormal) Range: 136-145 T BILI 0.70 mg/dL (Normal) Range: 0.20-1.00 ALT 31 U/L (Normal) Range: 13-56 Comments: Please note revised ALT reference range odxgqfapf57/28/2018. ALK P 110 U/L (Normal) Range: 45-117 [...] A.D.A. criteria.Please note revised GLUCOSE reference range cnyszhjrf94/02/2018. 51-Cdm-792978:10 Urinalysis, Complete Comments: ORDERED UACDR.JACINDA ORDERED CMP AND CBCDComments: clean catchComments: clean catchHow was Urine Obtained? ASSISTANT FOOTBALL COACH TO [facility] Ettqgarqhp[address] [place], [place], [id number] MUCUS, URINE RARE {/hpf} (Normal) BACTERIA RARE [...] (Normal) CLARITY Cloudy (Normal) COLOR Yellow (Normal) 4-Jjw-056300:42 ,Serum,hCG Quali. Comments: Comments: [facility] [address] [place], [place], [phone] HCGSQUAL NEGATIVE {Negative} (Normal) Range: 0-9 Nonpreg HCG Qual triggr 2 m[iU]/mL (Normal) 4-Prg-186635:41 Basic Metabolic Profile (BMP) Comments: [facility] [address] [place], [place], [address] GAP 10 (Normal) Range: 5-15 CO2 28.0 [...] A.D.A. criteria.Please note revised GLUCOSE reference range rxjfgrxuj99/02/2018. 5-Eje-042093:41 CBC-Complete Blood Cnt No Diff Comments: [facility] [address] [place], [place], [address] MPV 9.6 fL (Normal) Range: 6.2-12.0 PLT [...] 4.2-5.4 WBC 8.7 K/mm3 (Normal) Range: 4.4-11.0 7-Mbb-862894:41 Prothrombin Time w/INR Comments: [facility] Duhymjxjwr5805 [facility]. [place], [place], [address] INR 1.0 (Normal) PROTIME 12.9 s (Normal) Range: 11.7-14.9 :00 Culture, Urine Comments: [facility] Wymxnrxdzo1426 [facility]. [place], [place], [address] CUUR See Note (Normal) Comments: Urine CultureORGANISM [...] &lt ;=20 S(NF) indicates non-formulary drug at [facility]. Approval by Infectious Disease Specialist required before non- formulary drugs may be ordered and/or dispensed. :27 AFP, Tumor Marker Comments: Is Patient ? NPatient's Weight (LBS.): 124Number of Fetuses: 0[facility] (refer to report for specific site)refer to report for address and phone number AFP TUMOR 2253 6.8 ng/mL (Normal) Range: 0.0-8.3 Comments: Khanh ECLIA methodologyPerformed at: CB - [facility] [address] [id number] Director: Omar Hood PhD, Phone: [phone] 02-Eih-24961:27 CBC W/Diff, Automated Comments: [facility] [address]jiohj[address] [place], [place], [address] Absolute Lymph 1.47 {X10_3/ul} (Normal) Range: 0.83-4.51 [...] Range: 4.4-11.0 :27 Comprehensive Metabolic Profil Comments: [facility] [address] [place], [place], [address] GAP 9 (Normal) Range: 5-15 CO2 28.0 [...] Range: 70-110 :27 Microalb:Creat Ratio,Random UR Comments: [facility] [address] [place], [place], [address] MALB:CREAT 17.4 {mg/g_CRE} (Normal) MICROALBUMIN,UR 37.5 mg/L (Normal) UR CREAT 215.00 mg/dL (Normal) :40 CBC W/Diff, Automated Comments: [facility] Qmgntmxlli95[address] [place], [address] Absolute Lymph 1.60 {X10_3/ul} (Normal) [...] Info: 0786-1 - *CMP Complete Metabolic PanelWOhioHealth Grady [facility] Hospital Inqwwtivnj6461 [address] [place], [place], [address] GAP 10 (Normal) Range: 5-15 CO2 27.0 [...] <126 mg/dLsuggests IMPAIRED HOMEOSTASIS per A.D.A. criteria. 48-Gmq-50492:15 Culture, Urine Comments: [facility] [address]jtkdhd[address] [place], [address] CUUR See Note (Normal) Comments: Urine CultureORGANISM [...] $ <=20 S(NF) indicates non-formulary drug at [facility]. Approval by Infectious Disease Specialist required before non-formulary drugs may be ordered and/or dispensed. :35 HgA1C , Office (44592) HgA1C , Office 6.5 % (Normal) Range: 4.6 - 7.1 :07 AFP, Tumor Marker Comments: Is Patient ? [facility] (refer to report for specific site)refer to report for address and phone number AFP TUMOR 2253 8.5 ng/mL (Abnormal) Range: 0.0-8.3 Comments: [employer] ECLIA methodologyPerformed at: [facility] [place] [id number] Director: Omar Hood PhD, Phone: [phone] :[phone] CBC W/Diff, Automated Comments: [facility] [address]ju[address]jv[address] [place], [address] Absolute Lymph 1.17 {X10_3/ul} (Normal) [...] Range: 4.4-11.0 31-May-20179:07 Comprehensive Metabolic Profil Comments: [facility] Yndkxamwyf[address] [place], [place], [address] GAP 9 (Normal) Range: 5-15 CO2 28.0 [...] US Food and Drug Administration.Performed at: - Lab[address] [id number] Director: Zia Jarvis MD, Phone: [phone] INS RES/DIAB RK . (Normal) LDL SIZE [...] . (Normal) :07 Vitamin D,25 Hydroxy Comments: [facility] Nnolwngjvb7786 [facility]. [place], [place], [address] Vitamin D 25-OH 61.8 ng/mL (Normal) Comments: Vitamin D 25(OH) Status Range Deficiency <20 ng/mL (50nmol/L) Insuffciency 20 - 30 ng/mL (50 - 75 nmol/L) Sufficiency 30 - 100 ng/mL (75 - 250 nmol/L) Toxicity >100 ng/mL (>250 nmol/L) :48 Liver Profile Comments: [facility] Islihittos1549 [facility]. [place], [place], [address] D BILI 0.14 mg/dL (Normal) Range: 0.00-0.30 T BILI 0.50 mg/dL (Normal) Range: 0.20-1.00 ALT 57 U/L (Normal) Range: 12-78 ALK P 94 U/L (Normal) Range: 45-117 AST 40 U/L (Abnormal) Range: 15-37 GLOB 2.8 g/dL (Normal) Range: 2.3-3.5 ALB 3.9 g/dL (Normal) Range: 3.4-5.0 T PROT 6.7 g/dL (Normal) Range: 6.4-8.2 :45 Potassium Comments: [facility] Ezjabqwyti65[address] [place], [place], [address] K 4.3 mmol/L (Normal) Range: 3.5-5.1 :35 CBC W/Diff, Automated Comments: [facility] [address]wzaohxnr27[address] [place], [place], [address] Absolute Lymph 1.24 {X10_3/ul} (Normal) Range: 0.83-4.51 [...] Range: 4.4-11.0 :35 Comprehensive Metabolic Profil Comments: [facility] [address]cvtz[address] [place], [place], [address] GAP 10 (Normal) Range: 5-15 CO2 31.0 [...] ASPIRATION (SLIDES ONLY) See Note (Normal) Comments: [facility] [address] [place], [address] 0 Comments: Patient: IFEOMA ASHRAF : 1965 (52/F) Acct Num: [id number] Phys: Janelle KING,Alejandro Unit Num: [id number] Loc: LABSPEC Specimen: [id number] Received: 03/18/17 - 1127 Spec Ty pe: ASPIRATION TISSUES TISSUES: COMMENT Correlation with clinical, radiologic findings and appropriate follow up are necessary. CYTOLOGY GROSS Received are ten smears labeled wi th the patient's name and designated per the requisition as left thyroid FNA. Submitted for staining. / 03/18/17 TC:5 CPT: 82071 CYTOLOGY STUDY Slides are reviewed. The specimen [...] <signature on file> 01-Mar-20179:30 HEPATITIS C ANTIBODY (84974) Comments: PATIENT NOT FASTINGPERFORMED BY: [employer] [id number] [facility] InstituteKasennaSelect [facility] [id number] Hep C Virus Ab <0.1 {s/co_ratio} (Normal) Range: 0.0-0.9 Comments: Negative: < 0.8 Indeterminate: 0.8 - 0.9 Positive: > 0.9 . The CDC recommends that a positive HCV antibody result be followed up with a HCV Nucleic Acid Amplification test (729446). :30 Potassium Serum (07884) Comments: PATIENT NOT FASTINGPERFORMED BY: [employer] [id number] [facility] HospitalKasennaSelect [facility] [id number] Potassium, Serum 4.8 mmol/L (Normal) Range: 3.5-5.2 :29 HgA1C , Office (93881) HgA1C , Office 7.9 % (Abnormal) Range: 4.6 - 7.1 :53 CBC W/Diff, Automated Comments: [facility] [address]zexl[address] [place], [place], [address] Absolute Lymph 1.57 {X10_3/ul} (Normal) Range: 0.83-4.51 [...] Range: 4.4-11.0 :53 Comprehensive Metabolic Profil Comments: [facility] Sljafqobvg[address] [place], [place], [address] GAP 11 (Normal) Range: 5-15 CO2 32.0 [...] per A.D.A. criteria. :53 Lipid Profile Comments: [facility] Mjbjunyvfl9[address] [place], [address] VLDL 37 mg/dL (Normal) Range: 5-40 LDL [...] High Risk :53 Microalb:Creat Ratio,Random UR Comments: [facility] [address] [place], [place], [address] MALB:CREAT 19.7 {mg/g_CRE} (Normal) MICROALBUMIN,UR 27.8 mg/L (Normal) UR CREAT 141.00 mg/dL (Normal) :53 Thyroid Stim Hormone (TSH) Comments: [facility] [address] [place], [place], [address] TSH 2.39 {uIU/mL} (Normal) Range: 0.358-3.74 :53 Vitamin D,25 Hydroxy Comments: [facility] [address] [place], [place], [address] Vitamin D 25-OH 79.9 ng/mL (Normal) Comments: Vitamin D 25(OH) Status Range Deficiency <20 ng/mL (50nmol/L) Insuffciency 20 - 30 ng/mL (50 - 75 nmol/L) Sufficiency 30 - 100 ng/mL (75 - 250 nmol/L) Toxicity >100 ng/mL (>250 nmol/L) 38-Med-705711:08 CBC W/Diff, Automated Comments: [facility] [address] [place], [place], [address] Absolute Lymph 2.04 {X10_3/ul} (Normal) Range: 0.83-4.51 [...] 4.2-5.4 WBC 9.0 K/mm3 (Normal) Range: 4.4-11.0 93-Xki-416191:08 Comprehensive Metabolic Profil Comments: [facility] Bmevobujnh0351 [place], [place], [address] GAP 9 (Normal) Range: 5-15 CO2 27.0 [...] 126 mg/dLsuggests DIABETES MELLITUS per A.D.A. criteria. 64-Kej-880921:00 Culture, Urine Comments: [facility] Dnotycnqnf6[address] [place], [place], [address] CUUR See Note (Normal) Comments: Urine CultureORGANISM 1: Mixed Gram Positive OrganismsColony Count >100,000MIX CULTURE Mixed contaminants. Submit a new specimen if indicated. 3-Riv-389875:25 CBC W/Diff, Auto - EPLAB Comments: At [facility] Outpatient [facility] Medical Oncologypatients receive CBC w/auto Differential ONLY. Physicianwill place an order for a manual differential or Pathologistreview at his discretion. [facility] OUTPATIENT [facility]. [address] [place] [address] [address] IRONWORKER WIRE FENCE ERECTOR: MATEO CASTANEDA DO PH:[phone] Hospital Riwpohxxkg7739 [address] [place], [place], [address] Absolute Lymph 1.42 {X10_3/uL} (Normal) Range: 0.83-4.51 [...] 4.2-5.4 WBC 6.3 K/mm3 (Normal) Range: 4.4-11.0 9-Dvs-428246:25 Comprehensive Metabolic Profil Comments: Order Date: 06/07/16Order Date: 06/07/16erial Specimen #1, #2 or #3? 1[facility] Rkxvuknrbk0819 [place], [place], [address] GAP 11 (Normal) Range: 5-15 CO2 24.0 [...] 200 mg/dLsuggests DIABETES MELLITUS per A.D.A. criteria. 4-Htq-599444:25 LDH 208 U/L (Normal) Comments: Order Date: 06/07/16Order Date: 16Serial Specimen #1, #2 or #3? [address] [place] [address] Afcryqxlqf[address] [place], [address] Range: 84-246 8-Tde-442702:25 Uric Acid Comments: Order Date: 06/07/16Order Date: 16Serial Specimen #1, #2 or #3? [address] [place] [address] [address]qgbemm[address] [place], [address] URIC 3.8 mg/dL (Normal) Range: 2.6-6.0 Comments: The drugs N-Acetylcysteine and Metamizole may falsely deressthis assay. :10 HgA1C , Office (51681) HgA1C , Office 8.0 % (Abnormal) Range: 4.6 - 7.1 :10 Blood Glucose , Office (44206) Blood Glucose , Office 223 (Normal) :24 AFP, Tumor Marker Comments: Is Patient ? [facility] (refer to report for specific site)refer to report for address and phone number AFP TUMOR 2253 8.5 ng/mL (Abnormal) Range: 0.0-8.3 Comments: Khanh ECLIA methodologyPerformed at: - [facility] [address] [id number] Director: Omar Hood PhD, Phone: [phone] :24 CBC W/Diff, Automated Comments: [facility] Ozgmqktrvt28[address] [place], [place], [address] Absolute Lymph 1.35 {X10_3/ul} (Normal) Range: 0.83-4.51 [...] 4.2-5.4 WBC 4.1 K/mm3 (Abnormal) Range: 4.4-11.0 20-Git-20289:24 Comprehensive Metabolic Profil Comments: [facility] Imwibzfqhh77[address] [place], [place], [address] GAP 9 (Normal) Range: 5-15 CO2 27.0 [...] 126 mg/dLsuggests DIABETES MELLITUS per A.D.A. criteria. 40-Cfa-66791:24 NMR Lipoprofile Comments: [facility] (refer to report [...] the US Food and Drug Administration.Performed at: [address] [id number] Director: Zia Jarvis MD, Phone: [phone] INS RES/DIAB RK . (Normal) LDL SIZE [...] mg/dL (Normal) Range: 100-199 LIPIDS . (Normal) 14-Reb-278244:53 CBC W/Diff, Automated Comments: [facility] [address]whjccviy[address] [place], [address] Absolute Lymph 1.41 {X10_3/ul} (Normal) [...] Range: 4.4-11.0 :53 Comprehensive Metabolic Profil Comments: [facility] Nfaylakvti24[address] [place], [place], [address] GAP 13 (Normal) Range: 5-15 CO2 24.0 [...] 200 mg/dLsuggests DIABETES MELLITUS per A.D.A. criteria. 80-Wkn-10449:42 CBC W/Diff, Automated Comments: [facility] [address]keklzcz6[address] [place], [place], [address] Absolute Lymph 1.92 {X10_3/ul} (Normal) Range: 0.83-4.51 [...] 4.2-5.4 WBC 6.2 K/mm3 (Normal) Range: 4.4-11.0 13-Azf-97688:42 Comprehensive Metabolic Profil Comments: [facility] [address] [place], [place], [address] GAP 11 (Normal) Range: 5-15 CO2 25.0 [...] :55 Magnesium Comments: Order Date: 06/07/16Order Date: 06/07/16[facility] Anaitlscog[address] [place], [place], [address](410) MG 2.0 mg/dL (Normal) Range: 1.8-2.4 :57 CBC W/Diff, Auto - EPLAB Comments: At [facility] Outpatient [facility] Medical Oncologypatients receive CBC w/auto Differential ONLY. Physicianwill place an order for a manual differential or Pathologistreview at his discretion. [facility] OUTPATIENT [facility]. [address] [place] [address] [place] [address] IRONWORKER WIRE FENCE ERECTOR: MATEO CASTANEDA DO PH:[phone] Hospital Tbgufwejob13[address] [place], [place], [phone] Absolute Lymph 1.38 {X10_3/uL} (Normal) Range: 0.83-4.51 [...] Profil Comments: Order Date: 06/07/16OV Order #: [id number] Specimen #1, #2 or #3? 1 [id number] Grady Memorial Hospital Mnnegtqyzt9465 [place], [address] GAP 13 (Normal) Range: 5-15 CO2 24.0 [...] (Normal) Comments: Order Date: 06/07/16 Order #: [id number] Specimen #1, #2 or #3? [id number] [place] [address] [place], [address] Range: 84-246 :56 Magnesium Comments: Order Date: 06/07/16 Order #: [id number] Specimen #1, #2 or #3? [id number] [place] [address] [place], [address] MG 1.5 mg/dL (Abnormal) Range: 1.8-2.4 :56 Uric Acid Comments: Order Date: 06/07/16 Order #: [id number] Specimen #1, #2 or #3? [address] [place] [address] [place], [address] URIC 4.8 mg/dL (Normal) Range: 2.6-6.0 Comments: The drugs N-Acetylcysteine and Metamizole may falsely deressthis assay. :30 Liver Profile Comments: [facility] [address] [place], [address] D BILI 0.13 mg/dL (Normal) Range: 0.00-0.30 T BILI 0.40 mg/dL (Normal) Range: 0.20-1.00 ALT 60 U/L (Normal) Range: 12-78 ALK P 126 U/L (Normal) Range: 50-136 AST 37 U/L (Normal) Range: 15-37 GLOB 2.7 g/dL (Normal) Range: 2.3-3.5 ALB 3.4 g/dL (Normal) Range: 3.4-5.0 T PROT 6.1 g/dL (Abnormal) Range: 6.4-8.2 :33 CBC W/AUTO DIFF WBC Comments: PATIENT NOT FASTINGPERFORMED BY: REINALDO SENSIMEDKindred Hospital at MorrisKlhecs2656 [facility] [id number] Information: NURSE DRAW (50399) Immature Grans (Abs) 0.0 {x10E3/uL} (Normal) Range: [...] PANEL, COMPREHENSIVE Comments: PATIENT NOT FASTINGPERFORMED BY: SENSIMEDKindred Hospital at MorrisFkdidm1746 [facility] [id number] (21492) ALT (SGPT) 41 [iU]/L (Abnormal) Range: 0-32 [...] (Abnormal) Range: 65-99 :09 HgA1C , Office (82016) HgA1C , Office 7.0 % (Normal) Range: 4.6 - 7.1 :14 AFP, Tumor Marker Comments: Is Patient ? [facility] (refer to report for specific site)refer to report for address and phone number AFP TUMOR 2253 7.7 ng/mL (Normal) Range: 0.0-8.3 Comments: Khanh ECLIA methodologyPerformed at: CB - [facility] [address] [id number] Director: Omar Hood PhD, Phone: [phone] :[phone] CBC W/Diff, Automated Comments: [facility] [address] [place], [address] ; will review on 05/17 [...] Range: 4.4-11.0 :14 Comprehensive Metabolic Profil Comments: [facility] [address]zhxt[address] [place], [place], [address] GAP 7 (Normal) Range: 5-15 CO2 28.0 [...] 126 mg/dLsuggests DIABETES MELLITUS per A.D.A. criteria. 27-Wek-26945:14 Lipid Profile Comments: [facility] V[address]hnm40[address] [place], [address] VLDL 36 mg/dL (Normal) Range: 5-40 LDL [...] High Risk :14 Microalb:Creat Ratio,Random UR Comments: [facility] Bowzzedzqu[address] [place], [address] ; will review on 05/17 MALB:CREAT 14.6 {mg/g_CRE} (Normal) MICROALBUMIN,UR 23.4 mg/L (Normal) UR CREAT 160.00 mg/dL (Normal) :14 Thyroid Stim Hormone (TSH) Comments: [facility] [address]qvjixi64[address] [place], [address] TSH 1.89 {uIU/mL} (Normal) Range: 0.358-3.74 :14 Vitamin D,25 Hydroxy Comments: [facility] [address] [place], [address] ; will review on 05/17 Vitamin D 25-OH 53.2 ng/mL (Normal) Comments: Vitamin D 25(OH) Status Range Deficiency <20 ng/mL (50nmol/L) Insuffciency 20 - 30 ng/mL (50 - 75 nmol/L) Sufficiency 30 - 100 ng/mL (75 - 250 nmol/L) Toxicity >100 ng/mL (>250 nmol/L) :23 CBC W/Diff, Automated Comments: [facility] Kwlolnzcdy1395 [facility] [place], [address] Absolute Lymph 1.65 {X10_3/ul} [...] 4.2-5.4 WBC 4.4 K/mm3 (Normal) Range: 4.4-11.0 82-Rur-59457:23 Comprehensive Metabolic Profil Comments: [facility] L[address]wdrmqnv0665 [place], [place], [address] GAP 9 (Normal) Range: 5-15 CO2 30.0 [...] per A.D.A. criteria. :07 HgA1C , Office (53612) HgA1C , Office 8.5 % (Abnormal) Range: 4.6 - 7.1 :15 CBC W/Diff, Automated Comments: [facility] [address]ff[address]okivb[address] [place], [address] Absolute Lymph 1.76 {X10_3/ul} (Normal) Range: 0.83-4.51 [...] 4.2-5.4 WBC 6.7 K/mm3 (Normal) Range: 4.4-11.0 09-Pvg-96000:15 Comprehensive Metabolic Profil Comments: [facility] [address]beypvjthn[address] [place], [place], [address] GAP 13 (Normal) Range: 5-15 CO2 23.0 [...] per A.D.A. criteria. :15 Lipid Profile Comments: [facility] [address]wi[address]oksq7[address] [place], [place], [address] VLDL 45 mg/dL (Abnormal) Range: 5-40 LDL [...] High Risk :15 Vitamin D,25 Hydroxy Comments: [facility] Mlbiiegnpc3816 [facility] [address] [place], [place], [address] Vitamin D 25-OH 28.8 ng/mL (Normal) Comments: Vitamin D 25(OH) Status Range Deficiency <20 ng/mL (50nmol/L) Insuffciency 20 - 30 ng/mL (50 - 75 nmol/L) Sufficiency 30 - 100 ng/mL (75 - 250 nmol/L) Toxicity >100 ng/mL (>250 nmol/L); ADDENDA: non-emergent till apt :35 CBC W/Diff, Automated Comments: [facility] Fdrtnjjjnz1031 [facility] [address] [place], [place], [address] Absolute Lymph 1.26 {X10_3/ul} (Normal) Range: 0.83-4.51 [...] 4.2-5.4 WBC 4.8 K/mm3 (Normal) Range: 4.4-11.0 99-Lao-39003:35 Comprehensive Metabolic Profil Comments: [facility] Bochylbcty9817 [address] [place], [place], [address] GAP 14 (Normal) Range: 5-15 CO2 26.0 [...] 200 mg/dLsuggests DIABETES MELLITUS per A.D.A. criteria. 30-Okp-90547:0 ASPIRATION (SLIDES ONLY) See Note (Normal) Comments: [facility] Znmoixnwdr6174 [facility] [place], [place], [address] 0 Comments: Patient: IFEOMA ASHRAF : 1965 (50/F) Acct Num: [id number] Phys: Janelle KING,Alejandro Unit Num: [id number] Loc: LABSPEC Specimen: [id number] Received: 01/06/16 - 1129 Spec Ty pe: ASPIRATION TISSUES TISSUES: COMMENT Correlation with clinical, radiologic findings and appropriate follow up are necessary. CYTOLOGY GROSS Received are 10 smears labeled wit h the patient's name and designated per the requisition as fine needle aspiration left thyroid. Submitted for staining. 01/06/16 TC:5 CPT:85571 CYTOLOGY STUDY Slides are reviewed. The spe [...] Signed Toni Yepez 01/07/16 <signature on file> 2-Ayn-415489:29 CBC W/Diff, Auto - EPLAB Comments: At [facility] Medical Oncologypatients receive CBC w/auto Differential ONLY. Physicianwill place an order for a manual differential or Pathologistreview at his discretion. [facility] OUTPATIENT [facility]. [address] [place] [address] [place] [address] IRONWORKER WIRE FENCE ERECTOR: MATEO CASTANEDA DO PH:[phone] Hospital L[address]ahxctkc95[address] [place], [address] Absolute Lymph 1.49 {X10_3/uL} (Normal) [...] Comments: Serial Specimen #1, #2 or #3? 1[facility] Agyxjznyci80[address] [place], [address] GAP 8 (Normal) Range: 5-15 CO2 26.0 [...] 126 mg/dLsuggests DIABETES MELLITUS per A.D.A. criteria. 2-Voo-941111:28 LDH 213 U/L (Normal) Comments: Serial Specimen #1, #2 or #3? [address] [place] [address] [address]ok[address]vzmj[address] [place], [place], [address] Range: 84-246 0-Ylm-083732:28 Magnesium Comments: Serial Specimen #1, #2 or #3? [address] [place] [address] Usmsahgnnq0848 [address] [place], [place], [address] MG 1.6 mg/dL (Abnormal) Range: 1.8-2.4 0-Mby-369506:28 Uric Acid Comments: Serial Specimen #1, #2 or #3? [facility] Cdbkvwjwxn7502 [place], [address] URIC 4.8 mg/dL (Normal) Range: 2.6-6.0 :36 Miscellaneous Lab Procedure Comments: Comments: [id number] URINE TOX,RUN LOWEST TESTTest(s) Ordered: [id number] URINE TOX,RUN LOWEST TESTWOhioHealth Grady Memorial Hospital Uhgafruetp6580 [place], [address] [facility] Comments: [id number] 6+OXYCODONE-BUND (ng/mL)DRUG RESULT SCREEN CUTOFF____ Amphetamines,Urine Negat LAB (Normal) scott ng/mL 1000Amphetamine test includes Amphetamine and Methamphetamine.Barbiturates Negative ng/mL 200Benzodiazepines Negative ng/mL 200Cannabinoid TEST Negative ng/mL 20Cocaine (Metab) Negative ng/mL 300Opiates Positive ng/mL 300 Opiates test includes Codeine, Morphine, Hydromorphone, [place] codone.Please Note:Confirmation performed by Mass SpectrometryCodeine NegativeMorphine NegativeHydromorphone NegativeHydrocodone Positive Hydrocodone Confirm 1950 ng/mL 300Oxycodone/Oxymorphone,Urine Negative ng/mL 300 Test includes Oxydodone and Oxymorphone. TESTI NG PERFORMED AT [facility]. ORIGINAL REPORT ON FILE IN LAB CONTAINS ADDITIONAL TEST SITE INFORMATION. :36 Urine Drug Screen (VISTA) Comments: Comments: [id number] URINE TOX,RUN LOWEST TESTList of Drugs Taken or Suspected? UNKNOWNWOhioHealth Grady Memorial Hospital [address]xycuyoulg7[address] [place], [place], [address] ; ordered by Basali THC NEGATIVE (Normal) [...] MUST BE ORDERED SEPARATELY. USE TESTMNEMONIC: UTCA 88-Bwp-322959:20 HgA1C , Office (14212) HgA1C , Office 7.3 % (Abnormal) Range: 4.6 - 7.1 :13 AFP, Tumor Marker Comments: Is Patient ? [facility] (refer to report for specific site)refer to report for address and phone number AFP TUMOR 2253 6.4 ng/mL (Normal) Range: 0.0-8.3 Comments: [employer] ECLIA methodologyPerformed at: CB - [facility] [address] [id number] Director: Omar Hood PhD, Phone: [phone] :[phone] CBC W/Diff, Automated Comments: [facility] Wxozclxhcx6081 [place], [address] Absolute Lymph 1.59 {X10_3/ul} (Normal) [...] 4.2-5.4 WBC 5.3 K/mm3 (Normal) Range: 4.4-11.0 65-Zdq-03432:13 Comprehensive Metabolic Profil Comments: [facility] Nfnazzpzll9951 [place], [place], [address] GAP 10 (Normal) Range: 5-15 CO2 24.0 [...] per A.D.A. criteria. :13 Lipid Profile Comments: [facility] [id number] [facility] [place], [address] ; non-emergent and pt has [...] High Risk :13 Microalb:Creat Ratio,Random UR Comments: [facility] [id number] [place], [address] MALB:CREAT 17.0 {mg/g_CRE} (Normal) MICROALBUMIN,UR 43.7 mg/L (Normal) UR CREAT 257.00 mg/dL (Normal) :13 Thyroid Stim Hormone (TSH) Comments: [facility] [id number] [place], [id number] TSH 1.82 {uIU/mL} (Normal) Range: 0.358-3.74 :13 Vitamin D,25 Hydroxy Comments: [facility] [id number] [place], [id number] ; will review at 11/10 appt Vitamin D 25-OH 39.8 ng/mL (Normal) Comments: Vitamin D 25(OH) Status Range Deficiency <20 ng/mL (50nmol/L) Insuffciency 20 - 30 ng/mL (50 - 75 nmol/L) Sufficiency 30 - 100 ng/mL (75 - 250 nmol/L) Toxicity >100 ng/mL (>250 nmol/L) :40 CBC W/Diff, Automated Comments: [facility] [address] [place], [address] Absolute Lymph [...] 4.2-5.4 WBC 4.7 K/mm3 (Normal) Range: 4.4-11.0 20-Biz-94064:40 Comprehensive Metabolic Profil Comments: [facility] [address]bmwal[address] [place], [place], [id number] GAP 13 (Normal) Range: 5-15 CO2 24.0 [...] per A.D.A. criteria. :49 HgA1C , Office (93611) HgA1C , Office 7.8 % (Abnormal) Range: 4.6 - 7.1 :09 CBC W/Diff, Automated Comments: [facility] [address] [place], [address] Absolute Lymph 1.07 {X10_3/ul} (Normal) Range: 0.83-4.51 [...] 4.2-5.4 WBC 5.3 K/mm3 (Normal) Range: 4.4-11.0 47-Cte-669368:09 Comprehensive Metabolic Profil Comments: [facility] [address]ou[address]ntl[address] [place], [place], [address] GAP 7 (Normal) Range: 5-15 CO2 28.0 [...] 200 mg/dLsuggests DIABETES MELLITUS per A.D.A. criteria. 3-Bdm-243281:42 CBC W/Diff, Automated Comments: At [facility] Outpatient [facility] Medical Oncologypatients receive CBC w/auto Differential ONLY. Physicianwill place an order for a manual differential or Pathologistreview at his discretion. [facility] OUTPATIENT [facility]. [address] [place] [address] [address] IRONWORKER WIRE FENCE ERECTOR: MATEO CASTANEDA DO PH:[phone] performed at:[facility] Laborato [address] [place] [address] Absolute Lymph 1.60 {X10_3/ul} (Normal) [...] 4.2-5.4 WBC 7.0 K/mm3 (Normal) Range: 4.4-11.0 3-Wlf-285274:42 Comprehensive Metabolic Profil Comments: Serial Specimen #1, #2 or #3? 1Test performed at:[facility] [address] [place] [address] GAP 9 (Normal) Range: 5-15 [...] Comments: Please note revised CREATININE reference range vtnlqvuhf02/22/2015. BUN 20 mg/dL (Abnormal) Range: 7-18 GLU 118 mg/dL (Abnormal) Range: 70-110 Comments: Fasting Glucose result from 110 to <126 mg/dLsuggests IMPAIRED HOMEOSTASIS per A.D.A. criteria. 4-Pzg-148497:42 LDH 133 U/L (Normal) Comments: Serial Specimen #1, #2 or #3? 1Test performed at:[facility] [address]ntra[address] [place] [address] Range: 84-246 8-Xhy-206020:42 Uric Acid Comments: Serial Specimen #1, #2 or #3? 1Test performed at:[facility] [address]nsyookm[address] [place] [address] URIC 4.6 mg/dL (Normal) Range: 2.6-6.0 0-Kwr-024567:02 CBC W/Diff, Automated Comments: Test performed at:[facility] W[address]ws[address]ua[address] [place] [id number] ; handled by vicki Absolute Lymph 1.23 [...] 4.2-5.4 WBC 4.1 K/mm3 (Abnormal) Range: 4.4-11.0 6-Bpu-575045:02 Comprehensive Metabolic Profil Comments: Test performed at:[facility] B[address]jivbbn[address] [place], [place] [address] GAP 12 (Normal) Range: 5-15 CO2 23.0 [...] Comments: Please note revised CREATININE reference range bervwbpra03/22/2015. BUN 11 mg/dL (Normal) Range: 7-18 GLU 214 mg/dL (Abnormal) Range: 70-110 Comments: Glucose result greater than or equal to 200 mg/dLsuggests DIABETES MELLITUS per A.D.A. criteria. 18-Bza-446339:49 VITAMIN B-12 (CYANOCOBALAMIN) Comments: PATIENT NOT FASTINGPERFORMED BY: [facility]CoKind[facility] at MorrisDnyivl9195 [facility] [id number] (82684) Vitamin B12 464 pg/mL (Normal) Range: 211-946 98-Dzk-032165:49 Vitamin D Hydroxy (47198) Comments: PATIENT NOT FASTINGPERFORMED BY: [facility]CoKind[facility] at MorrisFefhkt9378 [facility] [id number] Vitamin D, 25-Hydroxy 11.5 ng/mL (Abnormal) Range: 30.0-100.0 Comments: Vitamin D deficiency has been defined by the [place] ofMedicine and an Endocrine Society practice guideline as alevel of serum 25-OH vitamin D less than 20 ng/mL (1,2).The Endocrine Society went on to further define vitamin Dinsufficiency as a level between 21 and 29 ng/mL (2).1. IOM ([place] of Medicine). 2010. Dietary reference intakes for calcium and D. [place]: The National Academies Press.2. Sami MF, Sophie [place], Xiomara LARES, et al. Evaluation, treatment, and prevention of vitamin D deficiency: an Endocrine Society clinical practice guideline. JCEM. 2010; 96(7):1911-30. :49 CBC W/AUTO DIFF WBC Comments: PATIENT NOT FASTINGPERFORMED BY: [facility] Kaddkc8305 [facility] [id number] Information: [id number] (24065) Immature Grans (Abs) 0.0 {x10E3/uL} (Normal) Range: [...] 3.77-5.28 WBC 6.1 {x10E3/uL} (Normal) Range: 3.4-10.8 73-Wtk-250952:28 URINE GENESIS CULTURE-NITA COL Comments: PATIENT NOT FASTINGPERFORMED BY: [facility] Skjhka2547 [facility]inder [facility] [id number] Information: SRC:[facility] [id number] COUNT (33383) Antimicrobial MIHEAD (Normal) Comments: S = Susceptible; [...] Imipenem Meropenem Urine Final report (Abnormal) Culture,Comprehensive 68-Gqp-931435:24 Urinalysis, Office (13662) UA - LEUKOCYTE ESTERASE Trace (Normal) UA - NITRITE Negative (Normal) URINE UROBILINGN NITA TIMED Normal mg/dL (Normal) UA - PROTEIN 30 mg/dL (Normal) UA - PH 6 (Abnormal) UA - BLOOD Negative (Normal) UA - SPECIFIC GRAVITY 1.030 (Abnormal) UA - KETONES Moderate mg/dL (Normal) UA - BILIRUBIN Small (Normal) UA - GLUCOSE Negative (Normal) 01-Apr-20157:54 Bedside Glucose Comments: Test performed at:[facility] [address] [place] [address] BEDSIDE GLU 129 mg/dL (Abnormal) Range: 70-110 Comments: MANAGEMENT OF PATIENT CARE PER NURSING PROTOCOL 31-Mar-20159:47 Urinalysis, Office (64356) UA - LEUKOCYTE ESTERASE Trace (Normal) UA - NITRITE Negative (Normal) URINE UROBILINGN NITA TIMED 2 mg/dL (Normal) UA - PROTEIN 300 mg/dL (Normal) UA - PH 6.0 (Normal) UA - BLOOD Hemolyzed Large (Normal) UA - SPECIFIC GRAVITY 1.030 (Abnormal) UA - KETONES 15 mg/dL (Abnormal) UA - BILIRUBIN Moderate (Normal) UA - GLUCOSE Negative (Normal) 86-Mow-976884:57 Basic Metabolic Profile (BMP) Comments: Test performed at:[facility] [address] [place] [address] GAP 11 (Normal) Range: 5-15 CO2 27.0 [...] 126 mg/dLsuggests DIABETES MELLITUS per A.D.A. criteria. 87-Zdc-477821:57 Digoxin Level Comments: Test performed at:[facility] U[address]ucsrvde[address] [place] [address] DIG 1.17 ng/mL (Normal) Range: 0.80-2.00 46-Jmd-756023:57 Hemoglobin A1c Comments: Test performed at:[facility] Vmmccsdpbw[address] [place] [address] HGB A1C 7.0 % (Abnormal) Range: 4.2-6.3 04-Arg-328889:57 Thyroid Stim Hormone (TSH) Comments: Test performed at:[facility] [address] [place] [address], [place] [address] TSH 0.89 {uIU/mL} (Normal) Range: 0.358-3.74 :17 Urine Culture,Comprehensive Comments: PATIENT NOT FASTINGPERFORMED BY: REINALDO [facility] Cdbona5386 [address] [place] [id number] Information: SRC:[facility] [id number] Result 1 BETAGB (Abnormal) Comments: Beta hemolytic [...] 02/28/15How was Urine Obtained? CLEAN CATCHTest performed at:[facility] Birxvfwtol0168 [facility] [place] [address] AMORPHOUS 1+ URATE (Normal) MUCUS, [...] :55 CBC W/Diff, Automated Comments: Test performed at:[facility] Tzequyuptg3416 [facility] [place] [address] Absolute Lymph 1.29 {X10_3/ul} (Normal) [...] :55 Comprehensive Metabolic Profil Comments: Test performed at:[facility] [address]cuacl[address] [place] [address] GAP 10 (Normal) Range: 5-15 [...] A.D.A. criteria. :55 Lipase Comments: Test performed at:[facility] [address]qnlzn[address] [place] [address] LIPASE 142 U/L (Normal) Range: 70-290 2-Zgv-241874:40 HgA1C , Office (34789) HgA1C , Office 7.4 % (Abnormal) Range: 4.6 - 7.1 :03 CBC W/Diff, Automated Comments: Test performed at:[facility] [address]ex[address]fbg8773 [place] [address] Absolute Lymph 1.31 {X10_3/ul} (Normal) Range: 0.83-4.51 [...] 4.2-5.4 WBC 5.1 K/mm3 (Normal) Range: 4.4-11.0 76-Iyt-746465:03 Comprehensive Metabolic Profil Comments: Test performed at:[facility] Bdwjntjniy[address], [place] [address] GAP 11 (Normal) Range: 5-15 CO2 26.0 [...] 126 mg/dLsuggests DIABETES MELLITUS per A.D.A. criteria. 11-Klu-346991:00 Culture, Urine Comments: Test performed at:[facility] Scsxnmfaoh[address] [place], [place] [id number] CUUR See Note (Normal) Comments: Urine CultureORGANISM 1: Streptococcus agalactiae (B)[place] Count 1000-10,000 Streptococcus agalactiae (B): REACTION Ampicillin $ <=0.25 S Benzylpenicillin NF <=0.06 S Ceftriaxone (other dx) $ <=0.12 S Inducable Clindamycin Resistan - Linezolid $$$$ <=2 S Vancomycin $ 0.5 S(NF) indicates non-formulary drug at [facility]. Approval by Infectious Disease Specialist required before non-formulary drugs may be ordered and/or dispensed. * CLSI guidelines does not recommend testing of cephalosporins. This interpretation is deduced from Beta-lactam/penicillin results.; ADDENDA: handled by edvin :32 CBC W/Diff, Auto - EPLAB Only Comments: At [facility] Outpatient [facility] patientsreceive CBC w/auto Differential ONLY. Physician will placean order for a manual differential or Pathologist review athis discretion. [facility] OUTPATIENT [facility]. [address] [place] [address] [place] [address] IRONWORKER WIRE FENCE ERECTOR: MATEO CASTANEDA DO PH:[phone] performed at:[facility] Xtstlptxoq[address] [place], [place] [id number] ; Richie Absolute Neut 2.7 {X10_3/uL} (Normal) [...] Specimen #1, #2 or #3? 1Test performed at:[facility] [address]jsli[address] [place], [place] [id number] Range: 87-241 Comments: ADDENDA: richie :34 TSH (71778) Comments: PATIENT WAS FASTINGPERFORMED BY: [facility] Mfzopn7531 [facility] [id number] TSH 1.240 {uIU/mL} (Normal) Range: 0.450-4.500 :34 LIPID PANEL (41136) Comments: PATIENT WAS FASTINGPERFORMED BY: [facility] Bhsrjp3790 [facility] [id number] LDL/HDL Ratio 2.6 {ratio_units} (Normal) Range: 0.0-3.2 [...] CREATININE RATIO Comments: PATIENT WAS FASTINGPERFORMED BY: SENSIMEDKindred Hospital at MorrisFugolb3029 [facility] [id number]; non- emergent till apt tomorrow (94208) AND (99580) Microalb/Creat Ratio 14.8 {mg/g_creat} (Normal) Range: 0.0-30.0 Microalbumin, Urine 44.5 ug/mL (Abnormal) Range: 0.0-17.0 Creatinine, Urine 301.0 mg/dL (Abnormal) Range: 15.0-278.0 :34 METABOLIC PANEL, Comments: PATIENT WAS FASTINGPERFORMED BY: SENSIMEDKindred Hospital at MorrisDrobap7946 [facility] [id number] Information: [id number] COMPREHENSIVE (81239) ALT (SGPT) 21 [iU]/L (Normal) Range: 0-32 [...] Glucose, Serum 161 mg/dL (Abnormal) Range: 65-99 8-Rxq-230392:10 HgA1C , Office (18636) HgA1C , Office 7.2 % (Abnormal) Range: 4.6 - 7.1 83-Cgr-022798:47 CBC W/Diff, Automated Comments: Test performed at:[facility] Dtypuyndjv[address], [place] [address] ; Handled by Vicki Absolute Lymph 1.43 [...] 4.2-5.4 WBC 5.4 K/mm3 (Normal) Range: 4.4-11.0 15-Ram-661343:47 Comprehensive Metabolic Profil Comments: Test performed at:[facility] Ufpdogrxjj[address] [place], [place] [address] GAP 6 (Normal) Range: 5-15 CO2 30.0 [...] Microscopic Examination Comments: PATIENT NOT FASTINGPERFORMED BY: [facility]6370 [facility] [id number] Bacteria Few (Normal) Mucus Threads Present (Normal) Epithelial Cells (non renal) 0-10 {/hpf} (Normal) Range: 0 - 10 RBC 0-2 {/hpf} (Normal) Range: 0 - 2 WBC >30 {/hpf} (Abnormal) Range: 0 - 5 :01 Urinalysis, Routine Comments: PATIENT NOT FASTINGPERFORMED BY: [facility]6370 [facility] [id number] Microscopic Examination See below: (Normal) Comments: Microscopic was indicated and was performed. Nitrite, Urine Negative (Normal) Urobilinogen,Semi-Qn 0.2 mg/dL (Normal) Range: 0.0-1.9 Bilirubin Negative (Normal) Occult Blood Negative (Normal) Ketones Trace (Abnormal) Glucose Negative (Normal) Protein 1+ (Abnormal) WBC Esterase 3+ (Abnormal) Appearance Turbid (Abnormal) Urine-Color Yellow (Normal) pH 6.0 (Normal) Range: 5.0-7.5 Specific [place] 1.030 (Normal) Range: 1.005-1.030 22-Ogy-993360:18 CBCD ALC 1.30 {X10_3/ul} (Normal) Range: 0.83-4.51 [...] 4.2-5.4 WBC 4.5 K/mm3 (Normal) Range: 4.4-11.0 76-Izh-334264:18 CMP GAP 7 (Normal) Range: 5-15 CO2 [...] mg/dLsuggests DIABETES MELLITUS per A.D.A. criteria. :01 [id number] (01527) Comments: PATIENT NOT FASTINGPERFORMED BY: [facility]6370 [facility] [id number] AFP, Serum, Tumor Marker 7.1 ng/mL (Normal) Range: 0.0-8.3 Comments: Khanh ECLIA methodology :01 PTT (Activated Partial Comments: PATIENT NOT FASTINGPERFORMED BY: [place] 0183570 [facility] [id number] Thromboplastin Time) (36035) aPTT 25 {sec} (Normal) Range: 24-33 Comments: This test has not been validated for monitoring unfractionated heparintherapy. aPTT-based therapeutic ranges for unfractionated heparintherapy have not been established. For general guidelines onHeparin monitoring, refer to the [facility] Directory of Services. :01 PT (Prothrobim Time) (78403) Comments: PATIENT NOT FASTINGPERFORMED BY: [facility]6370 [facility] [id number] Prothrombin Time 10.4 {sec} (Normal) Range: 9.1-12.0 INR 1.0 (Normal) Range: 0.8-1.2 Comments: Reference interval is for non-anticoagulated patients. . Suggested INR therapeutic range for Vitamin K anta gonist therapy: Standard Dose (moderate intensity therapeutic range): 2.0 - 3.0 Higher intensity therapeutic range 2.5 - 3.5 :01 TSH (94101) Comments: PATIENT NOT FASTINGPERFORMED BY: [place] 0183570 [facility] [id number] TSH 1.450 {uIU/mL} (Normal) Range: 0.450-4.500 :01 CBC W/AUTO DIFF WBC Comments: PATIENT NOT FASTINGPERFORMED BY: [place] 0183570 [facility] [id number] Information: [id number], [id number] (53048) Immature Grans (Abs) 0.0 {x10E3/uL} (Normal) Range: [...] CREATININE RATIO Comments: PATIENT NOT FASTINGPERFORMED BY: [facility]CoKindred Hospital at MorrisNjslkt9314 [facility] [id number] (17949) AND (30770) Microalb/Creat Ratio 26.4 {mg/g_creat} (Normal) Range: 0.0-30.0 Microalbumin, Urine 96.0 ug/mL (Abnormal) Range: 0.0-17.0 Creatinine, Urine 364.2 mg/dL (Abnormal) Range: 15.0-278.0 5-Luis Angel-95685:01 METABOLIC PANEL, COMPREHENSIVE Comments: PATIENT NOT FASTINGPERFORMED BY: REINALDO [facility] Pbdawm9017 [facility] [id number] (04247) ALT (SGPT) 19 [iU]/L (Normal) Range: 0-32 [...] mg/dL (Abnormal) Range: 65-99 :01 LIPID PANEL (37976) Comments: PATIENT NOT FASTINGPERFORMED BY: [facility] Mnvpns9653 [place] [id number] LDL/HDL Ratio 2.1 {ratio_units} (Normal) Range: 0.0-3.2 [...] (Normal) Range: 100-199 :19 HgA1C , Office (34805) HgA1C , Office 6.3 % (Normal) Range: [...] 7-18 GLU 102 mg/dL (Normal) Range: 70-110 76-Qky-34069:59 Anaerobic & Aerobic Comments: PATIENT NOT FASTINGPERFORMED BY: [facility]CoKindred Hospital at MorrisMrcrdd6639 [facility] [id number] Information: SRC:WND [id number] RIGHT EYE Culture (68634) Antimicrobial MIHEAD (Normal) Comments: S = Susceptible; [...] hours. Anaerobic Culture Final report (Normal) :57 [id number] (37694) Comments: PATIENT WAS FASTINGPERFORMED BY: [facility]6370 [facility] [id number] AFP, Serum, Tumor Marker 9.2 ng/mL (Abnormal) Range: 0.0-8.3 Comments: Khanh ECLIA methodology :57 PTT (Activated Partial Comments: PATIENT WAS FASTINGPERFORMED BY: [facility]6370 [facility] [id number] Thromboplastin Time) (00444) aPTT 26 {sec} (Normal) Range: 24-33 Comments: This test has not been validated for monitoring unfractionated heparintherapy. aPTT-based therapeutic ranges for unfractionated heparintherapy have not been established. For general guidelines onHeparin monitoring, refer to the [facility] Directory of Services. :57 PT (Prothrobim Time) (89740) Comments: PATIENT WAS FASTINGPERFORMED BY: [facility]6370 [facility] [id number] Prothrombin Time 10.5 {sec} (Normal) Range: 9.1-12.0 INR 1.0 (Normal) Range: 0.8-1.2 Comments: Reference interval is for non-anticoagulated patients. . Suggested INR therapeutic range for Vitamin K anta gonist therapy: Standard Dose (moderate intensity therapeutic range): 2.0 - 3.0 Higher intensity therapeutic range 2.5 - 3.5 :57 TSH (67160) Comments: PATIENT WAS FASTINGPERFORMED BY: [facility]6370 [facility] [id number] TSH 3.200 {uIU/mL} (Normal) Range: 0.450-4.500 :57 CBC WITH MANUAL DIFF Comments: PATIENT WAS FASTINGPERFORMED BY: SENSIMEDKindred Hospital at MorrisYbfdih8491 [facility] [id number] Information: [id number] (82635) Immature Grans (Abs) 0.0 {x10E3/uL} (Normal) Range: [...] PANEL, COMPREHENSIVE Comments: PATIENT WAS FASTINGPERFORMED BY: S[facility]EDKindred Hospital at MorrisZhucqr9691 [facility] [id number] (78655) ALT (SGPT) 15 [iU]/L (Normal) Range: 0-32 [...] (Abnormal) Range: 65-99 :29 HgA1C , Office (42943) HgA1C , Office 5.4 % (Normal) Range: [...] 7-18 GLU 76 mg/dL (Normal) Range: 70-110 7-Otd-722957:50 LIPID LDL 82 mg/dL (Normal) Range: 0-130 [...] CHOL 150 mg/dL (Normal) Comments: <200 mg/dL Sinvptefm426-245 mg/dL Borderline>240 mg/dL High Risk :50 HgA1C , Office (63639) HgA1C , Office 5.8 % (Normal) Range: [...] be sent to the patient by the [facility] within 30 days. Approximately 10% of breast cancers are not detected by mammography. Anormal mammogram should not delay biopsy of a clinically suspiciousabnormality. Signed:Prashant Delgadillo M.D.S [facility] 2012 at 9:19:01 AM [phone] Signed GP/GP If you are the referring physician and would like to consult with theradiologist who provided this interpretation, please herbie Bonilla M.D. at [phone]. If this radiologist is unavailable, youwill be directed to another radiologist to assist. If you are a patient with a question regarding this report, pleaseco ntactyour referring physician directly. Professional Interpretation Provided By: Kamida, Phone , These documents contain legally protected [...] on 06/15/13920 Sign by: Prashant Delgadillo MD 94-Ylh-62766:27 THYROID Radiology Report See Note Comments: STUDY: [...] Delgadillo M.D.June 15, 2013 at 2:56:26 PM [phone] 8Electronically Signed GP/GP If you are the referring physician and would like to consult with theradiologist who provided this interpretation, please contact Sarmad Bonilla at [phone]. If this radiologist is unavailable, youwill be directed to another radiologist to assist. If you are a patient with a question regarding this report, pleasecontactyour referring physician directly. manda baugh Interpretation Provided By: BoACE, Phone , These documents contain legally protected [...] on 06/15/131732 Sign by: Prashant Delgadillo MD 9-Wdq-890500:18 URINE GENESIS CULTURE-NITA COL Comments: PATIENT NOT FASTINGPERFORMED BY: [facility] Atquuz1281 [facility] [id number] Information: SRC: [id number] COUNT (20392) Antimicrobial MIHEAD (Normal) Comments: S = Susceptible; [...] primarily for treating urinary tract infections. (CLSI, P170-E88,2009) Urine Culture,Comprehensive Final report (Normal) 04-Jun-20138:48 Urinalysis, Office (33221) UA - LEUKOCYTE ESTERASE Large (Normal) UA - NITRITE Positive (Normal) URINE UROBILINGN NITA TIMED 2 mg/dL (Normal) UA - PROTEIN Negative mg/dL (Normal) UA - BLOOD Negative (Normal) UA - KETONES Moderate mg/dL (Normal) UA - BILIRUBIN Moderate (Normal) UA - GLUCOSE Small mg/dL (Normal) 97-Vfb-35783:06 MICROALBUMIN: CREATININE RATIO Comments: PATIENT WAS FASTINGPERFORMED BY: [employer] [place] [facility] [id number] (61466) AND (47682) Microalb/Creat Ratio 27.4 {mg/g_creat} (Normal) Range: 0.0-30.0 Microalbumin, Urine 85.2 ug/mL (Abnormal) Range: 0.0-17.0 Creatinine, Urine 311.1 mg/dL (Abnormal) Range: 15.0-278.0 03-Fyh-64418:06 METABOLIC PANEL, Comments: PATIENT WAS FASTINGPERFORMED BY: [employer] [facility] [id number] Information: ADD [id number] AND DRAW FEE 99 4791 COMPREHENSIVE (00720) ALT (SGPT) 29 [iU]/L (Normal) Range: 0-32 [...] Glucose, Serum 76 mg/dL (Normal) Range: 65-99 69-Qeq-61094:06 TSH (79209) Comments: PATIENT WAS FASTINGPERFORMED BY: [employer] LabCoThe Green OfficeZoaztv0857 [facility] [id number] TSH 3.040 {uIU/mL} (Normal) Range: 0.450-4.500 41-Bws-91972:06 LIPID PANEL (08243) Comments: PATIENT WAS FASTINGPERFORMED BY: [employer] [facility] Cfodpa8263 [facility] [id number] LDL/HDL Ratio 2.4 {ratio_units} (Normal) Range: 0.0-3.2 HDL Cholesterol 55 mg/dL (Normal) Comments: According to ATP-III Guidelines, HDL-C >59 mg/dL is considered anegative risk factor for CHD. LDL Cholesterol Calc 134 mg/dL (Abnormal) Range: 0-99 VLDL Cholesterol Ramandeep 18 mg/dL (Normal) Range: 5-40 Cholesterol, Total 207 mg/dL (Abnormal) Range: 100-199 Triglycerides 89 mg/dL (Normal) Range: 0-149 :06 [id number] (75968) Comments: PATIENT WAS FASTINGPERFORMED BY: [facility]6370 [facility] [id number] AFP, Serum, Tumor Marker 5.4 ng/mL (Normal) Range: 0.0-8.3 Comments: Khanh ECLIA methodology :06 PTT (Activated Partial Comments: PATIENT WAS FASTINGPERFORMED BY: [address] [id number] Thromboplastin Time) (47225) aPTT 27 {sec} (Normal) Range: 24-33 Comments: This test has not been validated for monitoring unfractionated heparintherapy. aPTT-based therapeutic ranges for unfractionated heparintherapy have not been established. For general guidelines onHeparin monitoring, refer to the [facility] Directory of Services. :06 PT (Prothrobim Time) (23984) Comments: PATIENT WAS FASTINGPERFORMED BY: [facility]6370 [facility] [id number] INR 1.1 (Normal) Range: 0.8-1.2 Comments: Reference interval is for non-anticoagulated patients. . Suggested INR therapeutic range for Vitamin K anta gonist therapy: Standard Dose (moderate intensity therapeutic range): 2.0 - 3.0 Higher intensity therapeutic range 2.5 - 3.5 Prothrombin Time 11.0 {sec} (Normal) Range: 9.1-12.0 :51 HgA1C , Office (34930) HgA1C , Office 5.0 % (Normal) Range: 4.6 - 7.1 :48 CBCD PATHR Reviewed (Normal) Comments: Leukopenia.Relative neutrophilia.Clinical correlation necessary.Toni Yepez M.D. 02/16/13 AMENDED REPORT 02/16/13 1199 PATH REV previously reported as: January follReason: [...] 4.2-5.4 WBC 3.6 {k/mm3} (Abnormal) Range: 4.4-11.0 26-Mcb-09108:48 CMP GAP 9 (Normal) Range: 5-15 CO2 [...] mg/dL (Normal) Range: 70-110 :03 Rapid Flu (00422 x 2) Influenza A Ag positive b (Normal) :27 METABOLIC PANEL, COMPREHENSIVE Comments: PATIENT WAS FASTINGPERFORMED BY: LabCoKindred Hospital at MorrisWrwnpu9859 [facility] [id number] (91127) ALT (SGPT) 25 [iU]/L (Normal) Range: 0-32 [...] mg/dL (Normal) Range: 65-99 :27 LIPID PANEL (97607) Comments: PATIENT WAS FASTINGPERFORMED BY: SENSIMEDKindred Hospital at MorrisUynsua9639 [facility] [id number] LDL/HDL Ratio 0.9 {ratio_units} (Normal) Range: 0.0-3.2 LDL Cholesterol Calc 29 mg/dL (Normal) Range: 0-99 VLDL Cholesterol Ramandeep 17 mg/dL (Normal) Range: 5-40 HDL Cholesterol 32 mg/dL (Abnormal) Comments: According to ATP-III Guidelines, HDL-C >59 mg/dL is considered anegative risk factor for CHD. Cholesterol, Total 78 mg/dL (Abnormal) Range: 100-199 Triglycerides 84 mg/dL (Normal) Range: 0-149 :27 TSH (03700) Comments: PATIENT WAS FASTINGPERFORMED BY: SENSIMEDKindred Hospital at MorrisNkzgja4493 [facility] [id number] TSH 3.990 {uIU/mL} (Normal) Range: 0.450-4.500 :27 CBC WITH MANUAL DIFF Comments: PATIENT WAS FASTINGPERFORMED BY: [facility]6370 [facility] [id number] Information: [id number] (56886) Immature Grans (Abs) 0.0 {x10E3/uL} Range: 0.0-0.1 [...] 4.4 ng/mL (Normal) Range: 0.0-8.3 9:39 Comments: [employer] ECLIA methodologyPerformed at: CB - [facility] [id number] Director: Manuelito Mendez PhD, Phone: [phone] 65-Kbv-79180:39 CBCMD ANC 2.4 3/uL (Normal) Range: 2.0-7.7 [...] CHOL 130 mg/dL (Normal) Comments: <200 mg/dL Abbhyumdp547-351 mg/dL Borderline>240 mg/dL High Risk :39 MIACRE tMICROCREAT 16.5 {mg/g_CRE} (Normal) MIALB 23.3 mg/L (Normal) CREU 141.0 mg/dL (Normal) :39 PT INR 1.1 (Normal) PTP 13.6 s (Normal) Range: 11.9-14.4 :39 PTT PTTP 29.5 s (Normal) Range: 24.1-36.2 :17 Rapid Flu (42868 x 2) Influenza A Ag neg (Normal) :29 HgA1C , Office (95055) HgA1C , Office 5.9 % (Normal) Range: 4.6 - 7.1 :53 FT3 2.9 pg/mL (Normal) Range: 2.18-3.98 :53 T4F 1.26 ng/dL (Normal) Range: 0.76-1.46 :53 TPO 8 {IU/mL} (Normal) Range: 0-34 Comments: Performed at: [facility] [id number] Director: Codi Robles MD, Phone: [phone] TSH 1.23 {uIU/mL} (Normal) Range: 0.358-3.74 :04 HgA1C , Office (03569) HgA1C , Office 5.8 % (Normal) Range: [...] :26 LIPID Comments: ORDERED TSH LIPID CMP CBCKAISER WALNUT CREEK MEDICAL CENTERFerJACINDA ORDERED VITD CMP CBCD VLDL [...] Comments: ORDERED TSH LIPID CMP CBCMD [facility]FerJACINDA ORDERED VITD CMP CBCD Range: 0.358-3.74 :26 VITD 44.8 ng/mL (Normal) Comments: ORDERED TSH LIPID CMP CBCMD [facility]ITALFerJACINDA ORDERED VITD CMP CBCD Range: 30.0-100.0 Comments: Vitamin D deficiency has been defined by the [place] of[facility] Centercine and an Endocrine Society practice guideline as alevel of serum 25-OH vitamin D less than 20 ng/mL (1,2).The Endocrine Society went on to further define vitamin Dinsufficiency as a level between 21 and 29 ng/mL (2).1. IOM ([place] of Medicine). 2010. Dietary reference intakes for calcium and D. [place]: The National Academies Press.2. Sami PATEL, Sophie MOORE, Xiomara LARES, et al. Evaluation, treatment, and prevention of vitamin D deficiency: an Endocrine Society clinical practice guideline. JCEM. 2010; 96(7): 1911-30.Performed at: [place] [address] [place], [place] [id number] Director: Codi Robles MD, Phone: [phone] 27-Jan-20128:02 BILAT SCRN DIGITAL & CAD Radiology [...] Signed GP/GP Professional Interpretat ion Provided By: [facility]iologyPatient[facility], , To consult with a radiologist regarding this report, please call our [id number] line @ Dicta dani on 01/27/12 0813 by Faustina KING,Dukeribed on 01/27/12 0950 by ITS IMPORTSign by Faustina KING,Prashant on 01/27/12 0951 Sign by: Prashant Delgadillo MD 97-Yld-476269:24 HgA1C , Office (16664) HgA1C , Office 5.7 % (Normal) Range: 4.6 - 7.1 42-Yug-858091:24 Blood Glucose , Office (90530) Blood Glucose , Office 89 (Normal) 95-Dwx-724357:31 Urinalysis, Office (67478) UA - LEUKOCYTE ESTERASE Small (Normal) UA - NITRITE Positive (Normal) URINE UROBILINGN NITA TIMED Normal mg/dL (Normal) UA - PROTEIN 300 mg/dL (Normal) UA - PH 6.0 (Normal) UA - SPECIFIC GRAVITY 1.025 (Normal) UA - KETONES Small mg/dL (Normal) UA - BILIRUBIN Moderate (Normal) UA - GLUCOSE Negative (Normal) :15 HgA1C , Office (85352) HgA1C , Office 6.8 % (Normal) Range: 4.6 - 7.1 :15 Blood Glucose , Office (52524) Blood Glucose , Office 162 (Normal) 43-Prr-757583:22 THYROID Radiology Report See Note (Normal) Comments: [...] Comments: PATIENT NOT FASTINGPERFORMED BY: CB [facility] Kqvhiu8659 Vines RoadDublin [place] [id number] Information: SRC:URC [id number] COUNT (45110) Antimicrobial MIHEAD (Normal) Comments: S = Susceptible; [...] Final report Culture,Comprehensive (Normal) :32 Urinalysis, Office (27253) UA - LEUKOCYTE ESTERASE Moderate (Normal) URINE UROBILINGN NITA TIMED Normal mg/dL (Normal) UA - PROTEIN 100 mg/dL (Normal) UA - PH 6.0 (Normal) UA - BLOOD Hemolyzed Large (Normal) UA - SPECIFIC GRAVITY 1.025 (Normal) UA - KETONES Negative mg/dL (Normal) UA - BILIRUBIN Negative (Normal) UA - GLUCOSE Negative (Normal) :28 Blood Glucose , Office (99591) Blood Glucose , Office 223 (Normal) :10 Urinalysis, Office (09518) UA - BILIRUBIN Small (Normal) UA - BLOOD Hemolyzed Large (Normal) UA - GLUCOSE Small (Normal) Comments: 100 UA - KETONES Negative mg/dL (Normal) UA - LEUKOCYTE ESTERASE Trace (Normal) UA - NITRITE Positive (Normal) UA - PH 5.0 (Normal) UA - PROTEIN 300 mg/dL (Normal) UA - SPECIFIC GRAVITY 1.020 (Normal) URINE UROBILINGN NITA TIMED 2 mg/dL (Normal) 0-Rqz-025811:29 URINE GENESIS CULTURE-NITA COL Comments: PATIENT NOT FASTINGPERFORMED BY: [facility] Guimbo7417 Vines RoadBetsy Johnson Regional Hospital [id number] Information: SRC:UR [id number] COUNT (29390) Antimicrobial MIHEAD (Normal) Comments: S = Susceptible; [...] mL (Normal) Urine Final report (Normal) Culture,Comprehensive 6-Ftg-942890:31 Urinalysis, Office (80249) UA - BILIRUBIN Large (Normal) UA - BLOOD Hemolyzed Moderate (Normal) UA - GLUCOSE Moderate (Normal) Comments: 250 mg/dL UA - KETONES Small mg/dL (Normal) Comments: 15mg/dL UA - LEUKOCYTE ESTERASE Large (Normal) UA - NITRITE Positive (Normal) UA - PH 5.0 (Normal) UA - PROTEIN 300 mg/dL (Normal) UA - SPECIFIC GRAVITY 1.015 (Normal) URINE UROBILINGN NITA TIMED 8 mg/dL (Normal) 61-Zip-78855:28 CBCD,SMEAR DIFF RED CELL MORPH SeeNote {NORMAL} [...] (Abnormal) Range: 0.358-3.74 :28 HgA1C , Office (02466) HgA1C , Office 8.3 % (Abnormal) Range: 4.6 - 7.1 :28 Blood Glucose , Office (30935) Blood Glucose , Office 176 (Normal) :24 [...] 200-240 mg/dL Borderline >240 mg/dL High Risk 40-Rzc-095935:54 BRAIN/HEAD W/WO CONTRAST Radiology See Note Comments: [...] 02/09/11 1702 Sign by: Prashant Delgadillo MD 31-Xko-18328:44 HgA1C , Office (56415) HgA1C , Office 7.4 % (Abnormal) Range: 4.6 - 7.1 :44 Blood Glucose , Office (79692) Blood Glucose , Office 206 (Normal) :37 [...] Report See Note (Normal) Comments: Exam Number: [id number] AMMOGRAPHY - BILATERAL SCREENING INDICATION:Routine annual screening [...] attaching a ResultCode to this exam. ADDENDUM: [id number] HPBI/MDS Reported By: PRASHANT DELGADILLO :14 HgA1C , Office (09266) HgA1C , Office 7.0 % (Normal) Range: 4.6 - 7.1 :14 Blood Glucose , Office (43852) Blood Glucose , Office 164 (Normal) :30 LASHA DIR SEMI-QL LASHA DIRECT 24 AU/mL (Normal) :30 ANTI-dsDNA AB 10 {IU/mL} (Normal) :30 TSH 6.39 {uIU/mL} (Abnormal) Range: 0.358-3.74 50-Iux-651877:35 C-REACTIVE PROTEIN (93213) Comments: PATIENT NOT FASTINGPERFORMED BY: [employer]70 [facility]ackerBlue[facility] Hospital [id number] C-Reactive Protein, Quant 6.5 mg/L (Abnormal) Range: 0.0-4.9 30-Kor-960541:35 SED RATE ERYTHROCYTE (63147) Comments: PATIENT NOT FASTINGPERFORMED BY: [employer]70 Resolve TherapeuticsSelect Specialty Hospital [facility] [id number] Sedimentation Rate-Westergren 14 mm/h (Normal) Range: 0-20 75-Zeq-817616:35 RHEUMATOID FACTOR-QUANT (14021) Comments: PATIENT NOT FASTINGPERFORMED BY: [employer]70 Resolve TherapeuticsSelect Specialty Hospital [facility] [id number] RA Latex Turbid. 7.6 {IU/mL} (Normal) Range: 0.0-13.9 31-Jor-421591:35 LASHA (ANTINUCLEAR ANTIBODY) Comments: PATIENT NOT FASTINGPERFORMED BY: ResearchGateSelect Specialty [facility] [id number] (06891) LASHA Direct Positive (Abnormal) :35 T3, FREE (TRIDOTHYRONINE) (07611) Comments: PATIENT NOT FASTINGPERFORMED BY: [facility]6370 [facility] [id number] Triiodothyronine,Free,Serum 2.8 pg/mL (Normal) Range: 2.0-4.4 :35 T4, FREE (THYROXINE) (23153) Comments: PATIENT NOT FASTINGPERFORMED BY: [address] [id number] T4,Free(Direct) 0.76 ng/dL (Abnormal) Range: 0.82-1.77 :35 Anti-TPO Antibody (08393) Comments: PATIENT NOT FASTINGPERFORMED BY: [place] [address] [facility] [id number] Thyroid Peroxidase (TPO) Ab <6 {IU/mL} (Normal) Range: 0-34 :35 TSH (81945) Comments: PATIENT NOT FASTINGPERFORMED BY: [place] [address] [facility] [id number] TSH 5.630 {uIU/mL} (Abnormal) Range: 0.450-4.500 Comments: Please note reference interval change :35 METABOLIC PANEL, Comments: PATIENT NOT FASTINGPERFORMED BY: [place] [address] [facility] [id number] Information: [id number] COMPREHENSIVE (90769) ALT (SGPT) 55 [iU]/L (Abnormal) Range: 0-40 [...] Glucose, Serum 151 mg/dL (Abnormal) Range: 65-99 38-Mex-568497:02 GENESIS CULTURE-OTHER (98677) Comments: PATIENT NOT FASTINGPERFORMED BY: LabCoKindred Hospital at MorrisNgmkfe7285 [facility] [id number] Information: SRC:THRT [id number] Result 1 Yeast isolated. (Normal) Comments: Moderate growthRequest for further identification must be madewithin 1 week. Upper Respiratory Culture Final report (Normal) 87-Vhp-00593:37 Rapid Strep Test, Office (56095) Rapid Strep Test, Office Negative (Normal) 07-Qss-282927:11 THYROID (HP) Radiology Report See Note (Normal) Comments: Exam Number: [id number] CLINICAL:This is a 45-year-old female patient with [...] 126 mg/dLsuggests DIABETES MELLITUS per A.D.A. criteria. 41-Aoz-24913:41 LIPID CHOL 147 mg/dL (Normal) Comments: <200 mg/dL Skvhmcwnk984-339 mg/dL Borderline>240 mg/dL High Risk HDL 32 mg/dL (Abnormal) Comments: Reference RangeHDL <40 mg/dL Low HDL CholesterolHDL >or= 60 mg/dL High HDL Cholesterol LDL 89 mg/dL (Normal) Range: 0-130 TRIG 128 mg/dL (Normal) Comments: Serum Triglycerides Reference IntervalNormal <150 mg/dLBorderline high 150 - 199 mg/dLHigh 200 - 499 mg/ dLVery High > or = 500 mg/dL VLDL 26 mg/dL (Normal) Range: 5-40 00-Moa-77310:41 TSH 4.85 {uIU/mL} (Abnormal) Range: 0.358-3.74 00-Mma-644491:50 URINE GENESIS CULTURE-NITA COL Comments: PATIENT NOT FASTINGPERFORMED BY: CB [facility] Vbowqc8758 Vines RoadDuSelect Specialty Hospital - [facility] [id number] Information: SRC:UR ADD [id number] COUNT (06827) Result 1 Klebsiella pneumoniae Comments: 1,000 Colonies/mL [...] STrimethoprim/Sulfa S Urine Final report (Normal) Culture,Comprehensive 77-Qkq-78376:55 Urinalysis, Office (88497) UA - LEUKOCYTE ESTERASE Small (Normal) UA - NITRITE Negative (Normal) URINE UROBILINGN NITA TIMED Normal mg/dL (Normal) UA - PROTEIN 30 mg/dL (Normal) UA - PH 6.0 (Normal) UA - BLOOD Negative (Normal) UA - SPECIFIC GRAVITY 1.020 (Normal) UA - KETONES Negative mg/dL (Normal) UA - BILIRUBIN Negative (Normal) UA - GLUCOSE Negative (Normal) 8-Kme-403551:37 PET/CT,TUMOR,BASE-THIGH,SUBS Radiology Report See Note (Normal) Comments: Exam Number: [id number] EXAM: Body PET study Head to Mid [...] 44:398P, 2003). w Reported By: ADELA MOLINA 0-Coo-186537:00 PRANEETH+ELPU24 3467 ALBUMIN,U 37.7 % (Normal) QKZTX-1-ECBN,U 3.2 % (Normal) TKFOV-9-WTIO,U 7.6 % (Normal) BETA GLOB,U 23.1 % (Normal) GAMMA GLOB,U 28.5 % (Normal) PRANEETH RESULT,U Comment (Normal) Comments: No monoclonality detected. M-SPIKE,UR% SeeNote % (Normal) Comments: Result: Not Observed PROTEIN, U24 62.1 {mg/24_hr} Range: 30.0-150.0 (Normal) PROTEIN,UR 2.3 mg/dL (Normal) Range: 0.0-15.0 3-Pyu-339074:15 C-REACTIVE PROT < 2.90 mg/L (Normal) Range: 0.0-3.0 Comments: C-Reactive Protein (CRP) provides useful information for thediagnosis, therapy and monitoring of inflammatory processesand associated diseases. For the evaluation of Relative Riskfor Cardiovascular Dise ase, a High Sensitivity CRP (HSCRP)should be ordered. 9-Dlz-852504:15 CBCD,SMEAR DIFF PLT EST SeeNote (Normal) Comments: [...] SED RATE 11 mm/h (Normal) Range: 0-20 3-Crx-289553:15 LDH 197 U/L (Abnormal) Range: 100-190 0-Hjz-436519:15 LIPID HDL 30 mg/dL (Abnormal) Comments: Reference [...] CHOL 154 mg/dL (Normal) Comments: <200 mg/dL Laefazerr370-532 mg/dL Borderline>240 mg/dL High Risk :15 PROT.[id number] NOTE Comment (Normal) Comments: Protein electrophoresis scan will follow via computer,mail, or equal opportunity representative delivery.Performed at: [address] [id number] Director: Kamlesh Arana MD ALBUMIN,UR 54.2 % (Normal) QCRCQ-2-RHEP,U 1.2 % (Normal) NMLTF-8-EMDO,U 9.4 % (Normal) BETA GLOB,U 23.4 % (Normal) GAMMA GLOB,U 11.8 % (Normal) M-SPIKE,U SeeNote % (Normal) Comments: Result: Not Observed PROTEIN,UR 13.6 mg/dL (Normal) Range: 0.0-15.0 :15 SPE [id number] A/G RATIO 1.8 (Normal) Range: 0.7-2.0 GLOBULIN, [...] electrophoresis scan will follow via computer,mail, or equal opportunity representative delivery. M-SPIKE SeeNote g/dL (Normal) Comments: Result: Not Observed GAMMA GLOBULIN 0.4 g/dL (Abnormal) Range: 0.5-1.6 ALBUMIN 3.9 g/dL (Normal) Range: 3.2-5.6 ALPHA-1 GLOBUL 0.2 g/dL (Normal) Range: 0.1-0.4 ALPHA-2 GLOBUL 0.7 g/dL (Normal) Range: 0.4-1.2 BETA GLOBULIN 0.9 g/dL (Normal) Range: 0.6-1.3 PROTEIN,TOTAL 6.1 g/dL (Normal) Range: 6.0-8.5 18-Bvc-427675:28 BRAIN/HEAD WITHOUT CONTRAST Radiology Report See Note (Normal) Comments: Exam Number: [id number] CT SCAN OF BRAIN HISTORYLytic lesion, lymphoma. [...] for confirmation. Reported By: TRUE NAGEL M.D. 15-Xig-283624:23 SPINE,CERVICAL WITHOUT CONTRAS Radiology Report See Note (Normal) Comments: Exam Number: [id number] CLINICAL:44 year old female with cervical radiculopathy. [...] tumor involvement. Reported By: SHARYN JASMINE M.D. 05-Cfn-826114:50 Blood Glucose , Office (79629) Blood Glucose , Office 105 (Normal) 11-Ekk-631819:50 HgA1C , Office (61655) HgA1C , Office 6.1 % (Normal) Range: 4.6 - 7.1 36-Rii-905790:24 URINE GENESIS CULTURE-NITA COL Comments: PATIENT NOT FASTINGPERFORMED BY: [facility] Awxtmg2776 [facility] [id number] Information: SRC:UR [id number] COUNT (12271) Antimicrobial MIHEAD (Normal) Comments: S = Susceptible; [...] mL (Normal) Urine Final report (Normal) Culture,Comprehensive 56-Gzo-883704:41 Urinalysis, Office (27445) UA - LEUKOCYTE ESTERASE Large (Normal) UA [...] Report See Note (Normal) Comments: Exam Number: [id number] Procedure completed. Please see MEDICAL RECORDS reports in PCI - OP - OP NOTE LET - LETTER. Reported By: BOONE CH M.D. :19 BLOOD GAS, O2 SAT ONLY - SUBSQ Radiology Report See Note (Normal) Comments: Exam Number: [id number] Procedure completed. Please see MEDICAL RECORDS reports in PCI - OP - OP NOTE LET - LETTER. Reported By: BOONE CH M.D. :19 BLOOD GAS, O2 SAT ONLY - SUBSQ Radiology Report See Note (Normal) Comments: Exam Number: [id number] Procedure completed. Please see MEDICAL RECORDS reports in PCI - OP - OP NOTE LET - LETTER. Reported By: BOONE CH M.D. 04-Aug-20096:45 RHC/LHC/CORS/LV Radiology Report See Note (Normal) Comments: Exam Number: [id number] Procedure completed. Please see MEDICAL RECORDS reports [...] 3.5-5.1 NA 135 mmol/L (Abnormal) Range: 136-145 8-Bie-577755:59 CBC HCT 40.9 % (Normal) Range: 37-47 [...] MIXED GRAM POSITIVE ORGANISMS :58 Urinalysis, Office (55900) UA - BILIRUBIN Negative (Normal) UA - BLOOD Negative (Normal) UA - GLUCOSE Negative (Normal) UA - KETONES Negative mg/dL (Normal) UA - LEUKOCYTE ESTERASE Small (Normal) Comments: aw UA - NITRITE Negative (Normal) UA - PH 6.0 (Normal) UA - PROTEIN Negative mg/dL (Normal) UA - SPECIFIC GRAVITY 1.010 (Normal) URINE UROBILINGN NITA TIMED Normal mg/dL (Normal) :53 HgA1C , Office (65592) HgA1C , Office 5.7 % (Normal) Range: 4.6 - 7.1 :53 Blood Glucose , Office (80724) Blood Glucose , Office 133 (Normal) :24 [...] (Normal) Range: 6.4-8.2 :53 HgA1C , Office (02980) HgA1C , Office 10.0 % (Abnormal) Range: 4.6 - 7.1 :53 Blood Glucose , Office (65749) Blood Glucose , Office 410 (Normal) :46 [...] mg/dL VLDL 49 mg/dL (Abnormal) Range: 5-40 6-Nih-886061:46 MICROALB:CRE UR MALB:CREAT 33.3 {mg/g_CRE} (Abnormal) MICROALBUMIN,UR 62.2 mg/L (Normal) UR CREAT 186.7 mg/dL (Normal) 57-Izv-147733:11 LIPID Comments: PATIENT NOT FASTING/DEMANDED TO BE [...] mg/dL VLDL 31 mg/dL (Normal) Range: -40 16-Ehr-657735:11 LIVER Comments: PATIENT NOT FASTING/DEMANDED TO BE DRAWN ALT 43 U/L (Normal) Range: 30-65 D BILI 0.07 mg/dL (Normal) Range: 0.00-0.30 T BILI 0.35 mg/dL (Normal) Range: 0.00-1.00 ALB 3.4 g/dL (Normal) Range: 3.4-5.0 ALK P 210 U/L (Abnormal) Range: 50-136 AST 27 U/L (Normal) Range: 15-37 T PROT 6.4 g/dL (Normal) Range: 6.4-8.2 50-Gld-285063:23 Urinalysis, Office (76578) Comments: done BC UA - BILIRUBIN Negative (Normal) UA - BLOOD Hemolyzed Large (Normal) UA - GLUCOSE Large (Normal) Comments: > 1000mg/dL UA - KETONES Negative mg/dL (Normal) UA - LEUKOCYTE ESTERASE Moderate (Normal) UA - NITRITE Negative (Normal) UA - PH 6.0 (Normal) UA - PROTEIN 30 mg/dL (Normal) UA - SPECIFIC GRAVITY 1.010 (Normal) URINE UROBILINGN NITA TIMED Normal mg/dL (Normal) 97-Zdl-197238:44 MYOCARD PERF SPECT REST/STRESS Radiology Report See Note (Normal) Comments: Exam Number: [id number] MYOCARDIAL PERFUSION SCAN TECHNIQUEThe patient was injected [...] of 37%. Reported By: NOE MORRIS M.D. 96-One-86435:39 SPINE, LUMBAR W/W/O CONTRAST Radiology Report See Note (Normal) Comments: Exam Number: [id number] MAGNETIC RESONANCE IMAGING OF THE LUMBAR SPINE [...] other abnormality. Reported By: SUSAN GOMEZ M.D. 89-Lmp-886400:04 CULTURE, URINE URINE CULTURE See Note {CFU/mL} (Normal) Comments: COLONY COUNT 25,000-50,000 ORGANISM 1: MIXED GRAM POSITIVE ORGANISMS 78-Hah-791077:15 Urinalysis, Office (77145) UA - LEUKOCYTE ESTERASE Small (Normal) Comments: aw UA - NITRITE Negative (Normal) UA - PH 5.0 (Normal) UA - PROTEIN Negative mg/dL (Normal) URINE UROBILINGN NITA TIMED Normal mg/dL (Normal) UA - BILIRUBIN Negative (Normal) UA - BLOOD Negative (Normal) UA - GLUCOSE Negative (Normal) UA - KETONES Negative mg/dL (Normal) UA - SPECIFIC GRAVITY 1.025 (Normal) 39-Ocg-464049:09 Blood Glucose , Office (95347) Blood Glucose , Office 231 (Normal) 98-Nlv-223584:09 HgA1C , Office (88612) HgA1C , Office 7.1 % (Normal) Range: 4.6 - 7.1 51-Job-463325:42 CBCD,SMEAR DIFF CELLS COUNTED 100 (Normal) HCT [...] 47-70 WBC 4.3 K/mm3 (Abnormal) Range: 4.4-11.0 43-Lma-138601:42 COMP METABOLIC A/G 1.2 {RATIO} (Normal) Range: [...] for patient's is the eGFRmultiplied by 1.212. [facility] Laboratory uses the abbreviated Modification of [...] Disease W/O Kidney Disease>/= 90 Stage One Nwarvw18 - 89 Stage Two Suspect Decreased GFR30 [...] T PROT 6.5 g/dL (Normal) Range: 6.4-8.2 72-Wdz-513083:42 LIPID CHOL 182 mg/dL (Normal) Comments: <200 [...] mg/dL VLDL 36 mg/dL (Normal) Range: 5-40 00-Yku-030023:42 MICROALB:CRE UR MALB:CREAT 35.4 {mg/g_CRE} (Abnormal) MICROALBUMIN,UR 54.7 mg/L (Normal) UR CREAT 154.6 mg/dL (Normal) 28-Uai-175239:42 TSH 2.57 {uIU/mL} (Normal) Range: 0.34-4.82 :40 CULTURE, URINE URINE CULTURE See Note {CFU/mL} (Normal) Comments: COLONY COUNT 1000-10,000 ORGANISM 1: MIXED GRAM POS & NEG ORGANISMS :36 Urinalysis, Office (70065) UA - BILIRUBIN Negative (Normal) UA - BLOOD Non Hemolyzed Trace (Normal) UA - KETONES Negative mg/dL (Normal) UA - LEUKOCYTE ESTERASE Moderate (Normal) UA - NITRITE Negative (Normal) UA - PH 5.0 (Normal) UA - PROTEIN Negative mg/dL (Normal) UA - SPECIFIC GRAVITY 1.015 (Normal) URINE UROBILINGN NITA TIMED Normal mg/dL (Normal) UA - GLUCOSE Negative (Normal) 99-Aua-601240:20 CULTURE, URINE URINE CULTURE See Note {CFU/mL} (Normal) Comments: COLONY COUNT 25,000-50,000 ORGANISM 1: MIXED GRAM POS & NEG ORGANISMS :12 Urinalysis, Office (01612) UA - BILIRUBIN Negative (Normal) UA - BLOOD Negative (Normal) UA - GLUCOSE Negative (Normal) UA - KETONES Negative mg/dL (Normal) UA - LEUKOCYTE ESTERASE Small (Normal) UA - NITRITE Negative (Normal) UA - PH 6.0 (Normal) UA - PROTEIN Negative mg/dL (Normal) UA - SPECIFIC GRAVITY 1.005 (Normal) URINE UROBILINGN NITA TIMED Normal mg/dL (Normal) 66-Mhv-705875:08 CBCD,SMEAR DIFF CELLS COUNTED 100 (Normal) EOS [...] Range: 0.34-4.82 :28 Blood Glucose , Office (29146) Blood Glucose , Office 124 (Normal) :28 HgA1C , Office (36425) HgA1C , Office 6.1 % (Normal) Range: 4.6 - 7.1 :38 CERULOPLAS 1560 21.3 mg/dL (Normal) Range: 17.9-53.3 Comments: Performed At: [facility] [place], [place] [id number] :38 FERRITIN 189 ng/mL (Normal) Range: 8-252 :38 HEP-ABC 914604 HB CORE [id number] SeeNote (Normal) Comments: Result: Negative HB SURF [...] T PROT 6.5 g/dL (Normal) Range: 6.4-8.2 62-Mzd-433765:38 MITOCHN AB 6650 <20.0 {Units} (Normal) Range: 0.0-20.0 Comments: Negative 0.0 - 20.0 Equivocal 20.1 - 24.9 Positive >24.9 . Mitochondrial (M2) Antibodies are found in 90-96% of patients with primary biliary cirrhosis. 80-Bhy-398217:03 GGTP 61 U/L (Abnormal) Range: 5-55 :03 LIVER ALB 3.7 g/dL (Normal) Range: 3.4-5.0 ALK P 161 U/L (Abnormal) Range: 50-136 ALT 35 U/L (Normal) Range: 30-65 AST 18 U/L (Normal) Range: 15-37 D BILI 0.06 mg/dL (Normal) Range: 0.00-0.30 T BILI 0.33 mg/dL (Normal) Range: 0.00-1.00 T PROT 6.5 g/dL (Normal) Range: 6.4-8.2 6-Tqi-954340:02 THYROID (HP) Radiology Report See Note (Normal) Comments: Exam Number: [id number] THYROID ULTRASOUND HISTORYThyromegaly. High-resolution, real-time linear images [...] is recommended. Reported By: TRUE NAGEL M.D. 62-Ael-111962:05 Blood Glucose , Office (11708) Blood Glucose , Office 135 (Normal) 14-Yhp-127923:05 HgA1C , Office (09187) HgA1C , Office 5.6 % (Normal) Range: [...] Report See Note (Normal) Comments: Exam Number: [id number] CT BRAIN WITHOUT AND WITH INTRAVENOUS CONTRAST [...] clinically warranted. Reported By: AIDAN MASON M.D. 88-Dyx-227957:30 CBCD Comments: CALL [phone] TO [phone] BASO% 0.8 % (Normal) Range: 0-1 EO% [...] 1+ANISOCYTOSIS WBC 3.8 K/mm3 (Abnormal) Range: 4.4-11.0 23-Dlb-548439:30 COMP METABOLIC Comments: CALL [phone] TO [phone] A/G 1.5 {RATIO} (Normal) Range: 0.9-2.4 ALB [...] :30 LDH 206 U/L (Abnormal) Comments: CALL [phone] TO [phone] Range: 100-190 :30 URIC 5.7 mg/dL (Normal) Comments: CALL [phone] TO [phone] Range: 2.6-6.0 :30 CULT, DP WOUND Comments: [...] mg/dL (Abnormal) Range: 40-230 Comments: Performed At: [address] [id number] :41 LDH 211 U/L (Abnormal) Range: 100-190 [...] PT IN CATHLABPrecautions*: NOT APPLICABLE Range: 0.34-4.82 56-Gwq-[id number]:20 BMP Comments: COMMENTS: BED 13 DR FASTPrecautions*: [...] 3.5-5.1 NA 136 mmol/L (Normal) Range: 136-145 42-Zkh-314147:20 CBCD Comments: COMMENTS: BED 13 DR FASTPrecautions*: [...] 47-70 WBC 23.9 K/mm3 (Abnormal) Range: 4.4-11.0 83-Xrr-88624:30 AFB C&S [id number] Comments: Precautions*: CHEMO PRECAUTIONSSPECIMEN DESCRIPTION: #2 SAME SOURCE AFB CULT See Note Comments: TESTING PERFORMED AT [facility]. ORIGINAL REPORT ON FILE IN LAB CONTAINS ADDITIONAL TEST SITE INFORMATION. (Normal) CULTURE, ACID FAST NO ACID-FAST BACILLI ISOLATED AFTER 6 WEEKS. AFB SMEAR See Note Comments: [facility] ORIGINAL REPORT ON FILE IN LAB CONTAINS ADDITIONAL TEST SITE INFORMATION. (Normal) ACID FAST BACILLUS SMEAR NO ACID-FAST BACILLI OBSERVED ON SMEAR. 13-D CULT,ALFREDITO See Note Comments: Precautions*: CHEMO PRECAUTIONSSPECIMEN DESCRIPTION: #1 SAME SOURCE ec-2 [id number] (Normal) Comments: ` TESTING PERFORMED AT [facility]. ORIGINAL REPORT ON FILE IN LAB CONTAINS ADDITIONAL TEST SITE INFORMATION. 0069 CULTURE, FUNGUS NO YEAST OR MOLD ISOLATED AFTER 4 WEEKS. :30 13-D CYTOLOGY, SeeNote Comments: Result: SEE PATHOLOGY REPORT Specimen submitted to Anatomical Pathology Department for testing. ec-2 BF/CSF (Normal) 0069 :30 69-Xgo-80624:30 FLUID P-FLU (Normal) Comments: OPERATION Not noted [...] DRAWN 07/22/06-TEST MISSED Range: 100-190 :51 SPE [id number] A/G RATIO 1.3 (Normal) Range: 0.7-2.0 ALBUMIN [...] monoclonal protein is not apparent.Performed At: [facility] [place], [place] [id number] M-SPIKE SeeNote (Normal) Comments: Result: Not Observed NOTE: Comment (Normal) Comments: Protein electrophoresis scan will follow via mail orcourier. PROTEIN,TOTAL 6.5 g/dL (Normal) Range: 6.0-8.5 :49 Blood Glucose , Office (32982) Blood Glucose , Office 84 (Normal) :49 HgA1C , Office (90918) HgA1C , Office 6.6 % (Normal) Range: [...] tachycardia Planned Observations CBC with auto diff (22135)Indication: Diabetes mellitus type II, controlled On: 4-Lcb-655708:03 Request LIPID PANEL (60228)Indication: Diabetes mellitus type II, controlled On: :03 Request METABOLIC PANEL, COMPREHENSIVE (61823)Indication: Diabetes mellitus type II, controlled On: : Request HGB A1C (16743)Indication: Diabetes mellitus type II, controlled On: :02 Request TSH (THYROID STIMULATING HORMONE) (91129)Indication: Acquired hypothyroidism On: : Request Metabolic Panel, Basic (92223)Indication: Hyponatremia On: :00 Request TSH (66271)Indication: Diabetes mellitus type II, controlled On: :48 Request Vitamin B-12 (cyanocobalamin) (70802)Indication: B12 deficiency On: :45 Request CBC WITH MANUAL DIFF (22322)Indication: B12 deficiency On: :45 Request T3, FREE (TRIDOTHYRONINE) (74334)Indication: Thyroid nodule On: :48 Request Comments: add to labs already drawn T4, FREE (THYROXINE) (41257)Indication: Thyroid nodule On: :47 Request Comments: add to labs already drawn Digoxin (13819)Indication: Cardiomyopathy On: :44 Request LIPID PANEL (66992)Indication: Mixed hyperlipidemia On: :43 Request TSH (26024)Indication: Acquired hypothyroidism On: :43 Request Vitamin D Hydroxy (06581)Indication: Vitamin D deficiency On: :43 Request NBVZL-GNXAWODSYFH-JPBJH (21655)Indication: Fatty liver On: :42 Request VITAMIN B-12 (CYANOCOBALAMIN) (65673)Indication: Fatigue On: :42 Request URINALYSIS, W/ MICRO (67047)Indication: Diabetes mellitus type II, controlled On: 69-Mwa-108596:30 Request MICROALBUMIN: CREATININE RATIO (45745) AND (46499)Indication: Diabetes mellitus type II, controlled On: :29 Request CBC with auto diff (58161)Indication: Diabetes mellitus type II, controlled On: 88-Usd-866873:29 Request METABOLIC PANEL, COMPREHENSIVE (54397)Indication: Diabetes mellitus type II, controlled On: 78-Bhv-422384:29 Request HGB A1C (19901)Indication: Diabetes mellitus type II, controlled On: 82-Chv-694725:29 Request HEPATIC FUNCTION PANEL (66092)Indication: Elevated liver enzymes On: 5-Ofh-779638:38 Request Comments: do in hospital tuesday when get US Metabolic Panel, Comprehensive (97569)Indication: Epigastric pain On: 69-Ofv-332887:54 Request Sed Rate Erythrocyte (96978)Indication: Epigastric pain On: :54 Request CBC, Platelets & Auto Diff (30420)Indication: Epigastric pain On: :54 Request OVA & PARASITE DIR SMEAR (41329)Indication: Diarrhea On: 08-Dct-849084:53 Request OCCULT BLOOD FECES SCREEN (35572)Indication: Diarrhea On: :53 Request LEUKOCYTE COUNT, FECAL (03132)Indication: Diarrhea On: 10-Lmb-018553:53 Request C-DIFFICILE, STOOL (87154)Indication: Diarrhea On: :53 Request GENESIS CULTURE-STOOL (06736)Indication: Diarrhea On: 06-Clj-952770:53 Request Magnesium (55672)Indication: Fatigue On: 12-Wgx-570915:42 Request Vitamin B-12 (cyanocobalamin) (80380)Indication: Fatigue On: 63-Cey-415017:41 Request MICROALBUMIN: CREATININE RATIO (53163) AND (56618)Indication: Diabetes mellitus type II, controlled On: 91-Izn-926390:40 Request LIPID PANEL (49778)Indication: Mixed hyperlipidemia On: 01-Bql-885869:39 Request CBC W/AUTO DIFF WBC (53361)Indication: Fatty liver On: 94-Wgq-561726:30 Request METABOLIC PANEL, COMPREHENSIVE (30210)Indication: Fatty liver On: 36-Qgg-989868:30 Request Vitamin D Hydroxy (88592)Indication: Vitamin D deficiency On: 63-Kvv-369130:30 Request TSH (13434)Indication: Acquired hypothyroidism On: 12-Ngj-803691:30 Request Digoxin (20952)Indication: Cardiomyopathy On: 86-Tit-054153:29 Request LIPASE (49243)Indication: Epigastric pain On: :28 Request AMYLASE (94296)Indication: Epigastric pain On: :28 Request URINE GENESIS CULTURE-IDENTIFICATN (45723)Indication: Leukocytes in urine On: 25-Uph-059860:38 Request MICROALBUMIN: CREATININE RATIO (26773) AND (12843)Indication: Essential hypertension with goal blood pressure less than 130/80 On: :58 Request CBC W/AUTO DIFF WBC (84952)Indication: Essential hypertension with goal blood pressure less than 130/80 On: :58 Request METABOLIC PANEL, COMPREHENSIVE (34301)Indication: Essential hypertension with goal blood pressure less than 130/80 On: :58 Request OTOOU-NFSASLMSADV-TRCBJ (96093)Indication: Abnormal tumor markers On: :57 Request Vitamin D Hydroxy (73430)Indication: Vitamin D deficiency On: :09 Request LIPOPROTEIN, BLD, BY NMR (79439)Indication: Mixed hyperlipidemia On: :09 Request CBC W/AUTO DIFF WBC (34591)Indication: Diabetes mellitus type II, controlled On: :09 Request METABOLIC PANEL, COMPREHENSIVE (02345)Indication: Diabetes mellitus type II, controlled On: :09 Request Potassium Serum (79227)Indication: Hypopotassemia On: :02 Request NKNIR-JFYIPSVIOCN-WADCR (17149)Indication: Fatty liver On: :57 Request MICROALBUMIN: CREATININE RATIO (95451) AND (32096)Indication: Essential hypertension with goal blood pressure less than 130/80 On: :45 Request CBC W/AUTO DIFF WBC (01684)Indication: Essential hypertension with goal blood pressure less than 130/80 On: :45 Request METABOLIC PANEL, COMPREHENSIVE (87547)Indication: Essential hypertension with goal blood pressure less than 130/80 On: :45 Request Vitamin D Hydroxy (79243)Indication: Vitamin D deficiency On: :45 Request TSH (90813)Indication: Acquired hypothyroidism On: :45 Request LIPID PANEL (63339)Indication: Mixed hyperlipidemia On: :45 Request CBC W/AUTO DIFF WBC (30718)Indication: Diabetes mellitus type II, controlled On: :28 Request IRJFO-OKNIPTQUIXI-MADFE (46932)Indication: Fatty liver On: : Request METABOLIC PANEL, COMPREHENSIVE (15070)Indication: Mixed hyperlipidemia On: : Request LIPOPROTEIN, BLD, BY NMR (64774)Indication: Mixed hyperlipidemia On: : Request Metabolic Panel, Basic (72050)Indication: Hypopotassemia On: :55 Request Comments: 10 days CBC (AUTO) ([id number])Indication: Uncontrolled type II diabetes mellitus On: : Request Vitamin D Hydroxy (11703)Indication: Vitamin D deficiency On: 72-Mmc-113144:03 Request MICROALBUMIN: CREATININE RATIO (91065) AND (53121)Indication: Uncontrolled type II diabetes mellitus On: :02 Request METABOLIC PANEL, COMPREHENSIVE (65129)Indication: Essential hypertension with goal blood pressure less than 130/80 On: 01-Hlj-972118:02 Request DURVO-ZBPRRICWGCN-NEXIO (74182)Indication: Fatty liver On: : Request LIPID PANEL (14965)Indication: Mixed hyperlipidemia On: : Request TSH (91536)Indication: Thyroid nodule On: : Request CBC W/AUTO DIFF WBC (62260)Indication: Uncontrolled type II diabetes mellitus On: :47 Request METABOLIC PANEL, COMPREHENSIVE (95910)Indication: Uncontrolled type II diabetes mellitus On: :47 Request LIPID PANEL (81009)Indication: Mixed hyperlipidemia On: :47 Request Vitamin D Hydroxy (64087)Indication: Vitamin D deficiency On: :47 Request IAJVC-KUKFHKZYGFU-RJEDJ (41434)Indication: Fatty liver On: : Request CBC W/AUTO DIFF WBC (45010)Indication: Uncontrolled type II diabetes mellitus On: :26 Request LIPID PANEL (00405)Indication: Mixed hyperlipidemia On: : Request MICROALBUMIN: CREATININE RATIO (76440) AND (12699)Indication: Uncontrolled type II diabetes mellitus On: : Request TSH (10023)Indication: Acquired hypothyroidism On: : Request METABOLIC PANEL, COMPREHENSIVE (15620)Indication: Essential hypertension with goal blood pressure less than 130/80 On: : Request Vitamin D Hydroxy (44825)Indication: Vitamin D deficiency On: : Request CALCIFEDIOL (02168)Indication: Vitamin D deficiency On: 71-Bsl-817302:44 Request Comments: to be done Jun 2015 after done with ergocalciferol URINE GENESIS CULTURE (NITA COL COUNT) (92291)Indication: UTI (lower urinary tract infection) On: 4-Aht-101560:22 Request LIPID PANEL (68449)Indication: Mixed hyperlipidemia On: 8-Ait-353765:15 Request CBC W/AUTO DIFF WBC (34861)Indication: Uncontrolled type II diabetes mellitus On: 7-Vhe-993187:14 Request METABOLIC PANEL, COMPREHENSIVE (48472)Indication: Uncontrolled type II diabetes mellitus On: 3-Ngb-320887:14 Request TSH (32025)Indication: Acquired hypothyroidism On: 4-Eeu-679866:14 Request JKDHK-XXKQPDYMXYK-NPADI (35596)Indication: Fatty liver On: 8-Gfb-944777:14 Request CBC, Platelets & Auto Diff ([id number])Indication: HX, PERSONAL, MALIGNANCY, LYMPHATIC NEC On: 88-Knc-37452:07 Request CBC WITH MANUAL DIFF (07146)Indication: Abnormal glucose tolerance test On: :33 Request MICROALBUMIN: CREATININE RATIO (05642) AND (00435)Indication: Abnormal glucose tolerance test On: :33 Request LIPID PANEL (75671)Indication: Mixed hyperlipidemia On: :31 Request METABOLIC PANEL, COMPREHENSIVE (72214)Indication: Abnormal glucose tolerance test On: :31 Request URINE GENESIS CULTURE-NITA COL COUNT (16966)Indication: Dysuria On: 45-Jvl-689439:03 Request RETICULOCYTE COUNT (99694)Indication: Anemia On: :37 Request Iron (34771)Indication: Anemia On: :37 Request Ferritin (59744)Indication: Anemia On: :37 Request CBC (Auto) (16161)Indication: Anemia On: :37 Request CBC, Platelets & Auto Diff (17128)Indication: Fever On: :03 Request Metabolic Panel, Comprehensive (33832)Indication: Fever On: :03 Request HgA1C , Office (64192)Indication: Abnormal glucose tolerance test On: :55 Request CBC WITH MANUAL DIFF (31558)Indication: Abnormal glucose tolerance test On: :53 Request METABOLIC PANEL, COMPREHENSIVE (49338)Indication: Abnormal glucose tolerance test On: :53 Request LIPID PANEL (31190)Indication: Mixed hyperlipidemia On: :53 Request MZHIP-QSUKUSIICOZ-DSTAW (87152)Indication: Fatty liver On: 85-Dus-147340:53 Request PTT (Activated Partial Thromboplastin Time) (46353)Indication: Fatty liver On: :53 Request PT (Prothrobim Time) (72547)Indication: Fatty liver On: 07-Qco-781730:53 Request MICROALBUMIN: CREATININE RATIO (69583) AND (81732)Indication: Abnormal glucose tolerance test On: 18-Iao-908879:49 Request Anti-TPO Antibody (43491)Indication: Acquired hypothyroidism On: :14 Request Comments: 1 month TSH (56300)Indication: Acquired hypothyroidism On: 05-Ixr-301670:13 Request Comments: 1 month T4, FREE (THYROXINE) (62698)Indication: Acquired hypothyroidism On: :13 Request Comments: 1 month T3, FREE (TRIDOTHYRONINE) (47296)Indication: Acquired hypothyroidism On: 85-Ebq-226164:13 Request Comments: 1 month CBC WITH MANUAL DIFF (30243)Indication: Abnormal glucose tolerance test On: :38 Request METABOLIC PANEL, COMPREHENSIVE (81222)Indication: Abnormal glucose tolerance test On: :38 Request LIPID PANEL (63596)Indication: Mixed hyperlipidemia On: :38 Request MICROALBUMIN: CREATININE RATIO (16033) AND (27842)Indication: Abnormal glucose tolerance test On: 10-Kaw-449612:56 Request CBC WITH MANUAL DIFF (06440)Indication: Elevated LFTs On: 48-Uyt-867190:56 Request METABOLIC PANEL, COMPREHENSIVE (99758)Indication: Elevated LFTs On: 26-Lfu-637714:56 Request LIPID PANEL (28936)Indication: Mixed hyperlipidemia On: 97-Rjh-800614:56 Request TSH (30776)Indication: Acquired hypothyroidism On: :56 Request CBC WITH MANUAL DIFF (12133)Indication: Essential hypertension with goal blood pressure less than 130/80 On: :34 Request TSH (17954)Indication: Acquired hypothyroidism On: :34 Request METABOLIC PANEL, COMPREHENSIVE (07923)Indication: Fatty liver On: :33 Request LIPID PANEL (47223)Indication: Mixed hyperlipidemia On: 04-Oct-20119:33 Request MICROALBUMIN: CREATININE RATIO (82395) AND (23233)Indication: Uncontrolled type II diabetes mellitus On: :46 Request TSH (63295)Indication: Acquired hypothyroidism On: :46 Request LIPID PANEL (95240)Indication: Mixed hyperlipidemia On: :45 Request METABOLIC PANEL, COMPREHENSIVE (79572)Indication: Elevated LFTs On: :45 Request HgA1C , Office (35802)Indication: Uncontrolled type II diabetes mellitus On: :28 Request URINE GENESIS CULTURE-NITA COL COUNT (11350)Indication: Cystitis, acute On: :43 Request URINE GENESIS CULTURE-IDENTIFICATN (42181)Indication: Dysuria On: :10 Request CBC WITH MANUAL DIFF (59694)Indication: Headache On: :56 Request METABOLIC PANEL, COMPREHENSIVE (18496)Indication: Headache On: :56 Request LIPID PANEL (53317)Indication: Mixed hyperlipidemia On: :56 Request TSH (90900)Indication: Acquired hypothyroidism On: 38-Vxf-847362:56 Request METABOLIC PANEL, COMPREHENSIVE (28948)Indication: Uncontrolled type II diabetes mellitus On: :28 Request HEPATIC FUNCTION PANEL (47937)Indication: Mixed hyperlipidemia On: :28 Request LIPID PANEL (28827)Indication: Mixed hyperlipidemia On: :28 Request LIPID PANEL (93462)Indication: Mixed hyperlipidemia On: :39 Request MICROALBUMIN: CREATININE RATIO (14699) AND (65344)Indication: Uncontrolled type II diabetes mellitus On: :39 Request CBC WITH MANUAL DIFF ([id number])Indication: Essential hypertension with goal blood pressure less than 130/80 On: :39 Request METABOLIC PANEL, COMPREHENSIVE (27003)Indication: Elevated LFTs On: :39 Request TSH ([id number])Indication: Acquired hypothyroidism On: :36 Request TSH (84939)Indication: Thyroid nodule On: 32-Ray-546296:20 Request METABOLIC PANEL, COMPREHENSIVE (03909)Indication: Elevated LFTs On: :19 Request LIPID PANEL ([id number])Indication: Mixed hyperlipidemia On: :19 Request C-REACTIVE PROTEIN (92870)Indication: Abnormal findings on diagnostic imaging of other specified body structures On: 42-Bgc-160964:02 Request SED RATE ERYTHROCYTE (20081)Indication: Abnormal findings on diagnostic imaging of other specified body structures On: 21-Gmx-931638: Request LDH (LD) (LACTATE DEHYDROGENASE) (35917)Indication: Abnormal findings on diagnostic imaging of other specified body structures On: 04-Kwa-388642: Request Urine Protein Electrophoresis (UPEP) (03339)Indication: Abnormal findings on diagnostic imaging of other specified body structures On: 53-Ifd-664370: Request Serum Protein Electrophoresis (SPEP) (91036)Indication: Abnormal findings on diagnostic imaging of other specified body structures On: 72-Avm-708373: Request METABOLIC PANEL, COMPREHENSIVE (88090)Indication: Diabetes mellitus type II, controlled On: :19 Request LIPID PANEL (00530)Indication: Mixed hyperlipidemia On: :19 Request URINE GENESIS CULTURE-NITA COL COUNT (80682)Indication: Dysuria On: 81-Utg-789263:58 Request HEPATIC FUNCTION PANEL (50711)Indication: Elevated LFTs On: :18 Request LIPID PANEL (69847)Indication: Mixed hyperlipidemia On: 38-Qzl-367401:17 Request MICROALBUMIN: CREATININE RATIO (69160) AND (75520)Indication: Uncontrolled type II diabetes mellitus On: :47 Request CBC WITH MANUAL DIFF (44048)Indication: Uncontrolled type II diabetes mellitus On: 7-Skq-094665:47 Request METABOLIC PANEL, COMPREHENSIVE (71192)Indication: Uncontrolled type II diabetes mellitus On: :47 Request HEPATIC FUNCTION PANEL (20624)Indication: Elevated LFTs On: 0-Urx-699455:45 Request LIPID PANEL (62371)Indication: Mixed hyperlipidemia On: 0-Oou-092783:44 Request HEPATIC FUNCTION PANEL (14860)Indication: Fatty liver On: 3-Vwt-165647:30 Request LIPID PANEL (93596)Indication: Mixed hyperlipidemia On: 5-Qok-669827:30 Request URINE GENESIS CULTURE (NITA COL COUNT) (93473)Indication: Low back pain potentially associated with radiculopathy On: 58-Rdw-537815:03 Request MICROALBUMIN: CREATININE RATIO (39384) AND (02950)Indication: Dysuria On: 67-Ape-874780:05 Request LIPID PANEL (38182)Indication: Dysuria On: 85-Mie-491682:05 Request TSH (99695)Indication: Dysuria On: 72-Veh-578238:05 Request METABOLIC PANEL, COMPREHENSIVE (04590)Indication: Dysuria On: 73-Lpb-151237:04 Request CBC WITH MANUAL DIFF ([id number])Indication: Dysuria On: 81-Fmy-968389:04 Request URINE GENESIS CULTURE-NITA COL COUNT (89508)Indication: Dysuria On: 64-Npi-293147:45 Request URINE GENESIS CULTURE (NITA COL COUNT) (03618)Indication: Dysuria On: 56-Dgm-754960:17 Request METABOLIC PANEL, COMPREHENSIVE (88980)Indication: Fatty liver On: 04-Cxh-77954:58 Request Magnesium (41665)Indication: Palpitations On: :51 Request TSH (09108)Indication: Palpitations On: 93-Bbw-27960:51 Request METABOLIC PANEL, COMPREHENSIVE (37862)Indication: Palpitations On: :51 Request CBC WITH MANUAL DIFF (35020)Indication: Palpitations On: 13-Zir-40958:51 Request GGT (Gamma Glutamyl Transferase) (94902)Indication: Elevated LFTs On: 47-Ycl-069323:16 Request HEPATIC FUNCTION PANEL (81916)Indication: Elevated LFTs On: 87-Jsa-705823:16 Request VITAMIN B-12 (CYANOCOBALAMIN) (07027)Indication: Fatigue On: :23 Request MICROALBUMIN URINE QUANT (89110)Indication: Diabetes mellitus type II, controlled On: 03-Cvk-66609:22 Request TSH (66782)Indication: Fatigue On: 90-Hga-42175:22 Request CBC WITH MANUAL DIFF (20571)Indication: Diabetes mellitus type II, controlled On: 92-Whx-18271:22 Request METABOLIC PANEL, COMPREHENSIVE (31572)Indication: Diabetes mellitus type II, controlled On: 93-Flc-59553:22 Request LIPID PANEL (92437)Indication: Mixed hyperlipidemia On: 46-Vwa-66078:22 Request HEPATIC FUNCTION PANEL (34490)Indication: Mixed hyperlipidemia On: 83-Koh-808018:48 Request LIPID PANEL (30999)Indication: Mixed hyperlipidemia On: 01-Zkh-019037:48 Request Comments: in 3 mos Planned Encounters Medical; [facility] 1 Month FU - On: 30-Aug-2018 11:00 [facility] Fast DO, Sangeetha A Fast DO, Sangeetha A Planned Procedures Flu Vaccine (Quadrivalent) 67835Xs: On: 21-Jul-2018 Intent Fast DO, Sangeetha A Fast DO, Sangeetha A SCREENING DIGITAL TOMOSYNTHESIS OF On: 21-Jul-2018 Intent BREAST (21414)By: Fast DO, Sangeetha A Fast DO, Sangeetha A B 12 Injection, 1000 mcg (J3420)By: On: 31-May-2018 Intent Fast DO, Sangeetha A Fast DO, Sangeetha A Comments: Lot#[id number] EXP:[id number] given:left deltoid Given By: clarita albright ABN signed CT - Abdomen (IV Contrast Needed)By: On: 31-May-2018 Intent Fast DO, Sangeetha A Fast DO, Sangeetha A Doppler Ultrasound OtherBy: Fast DO, On: 19-May-2018 Intent Sangeetha A Fast DO, Sangeetha A Comments: left arm ULTRASOUND OF LIVER (75027)By: On: 24-Feb-2018 Intent Jennifer Rios MD PFT - CompleteBy: Fast DO, Sangeetha A On: 21-Oct-2017 Intent Fast DO, Sangeetha A Comments: at [facility] SCREENING DIGITAL TOMOSYNTHESIS OF On: 21-Oct-2017 Intent BREAST (48598)By: Fast DO, Sangeetha A Comments: end of oct Fast DO, Sangeetha A EsophagramBy: Fast DO, Sangeetha A Fast On: 21-Oct-2017 Intent DO, Sangeetha A Comments: with 12 mm tablet ELECTROCARDIOGRAM, COMPLETE (ECG) On: 21-Oct-2017 Intent (50918)By: Fast DO, Sangeetha A Fast DO, Sangeetha A Flu Vaccine (Quadrivalent) 32480Je: On: 07-Jun-2017 Intent Fast DO, Sangeetha A [...] DO, Sangeetha A DEXA SCAN AXIAL SKELETON (38751)By: On: 16-Aug-2016 Intent Fast DO, Sangeetha A Fast DO, Sangeetha A MAMMOGRAM, SCREENING, BOTH BREAST On: 16-Aug-2016 Intent (44612)By: Fast DO, Sangeetha A Fast DO, Sangeetha A ELECTROCARDIOGRAM, COMPLETE (ECG) On: 16-Aug-2016 Intent (60429)By: Fast DO, Sangeetha A Fast DO, Sangeetha A Flu Vaccine (Quadrivalent) 61655Fi: On: 16-Aug-2016 Intent Fast DO, Sangeetha A Fast DO, Sangeetha A Comments: FLUlot: [id number]/09site:Lt deltoidroute:IMdose:.5mlHEIDI MCLEOD ADMINISTRATION OF INFLUENZA VIRUS On: 16-Aug-2016 Intent VACCINE (G0008)By: Fast DO, Sangeetha A Fast DO, Sangeetha A Ultrasound - ThyroidBy: Fast DO, On: 10-Nov-2015 Intent Sangeetha A Fast DO, Sangeetha A Ultrasound - LiverBy: Fast DO, Sangeetha On: 10-Nov-2015 Intent A Fast DO, Sangeetha A Flu Vaccine (Quadrivalent) 56893Yf: On: 08-Aug-2015 Intent Fast DO, Sangeetha A Fast DO, Sangeetha A Comments: Lot #[id number]-L dltd, IMDose prefilled syringegiven by:SIMONE Jasso and ABN signed MAMMOGRAM, SCREENING, BOTH BREAST On: 08-Aug-2015 Intent (95812)By: Fast DO, Sangeetha A Fast DO, Sangeetha A Ultrasound - ThyroidBy: Fast DO, On: 08-Aug-2015 Intent Sangeetha A Fast DO, Sangeetha A Ultrasound - LiverBy: Fast DO, Sangeetha On: 08-Aug-2015 Intent A Fast DO, Sangeetha A ADMINISTRATION OF PNEUMOCOCCAL On: 01-Nov-2014 Intent VACCINE (G0009)By: Fast DO, Sangeetha A Fast DO, Sangeetha A PNEUM VAC ADLT/IMUMNOSPR, SBC/INTRM On: 01-Nov-2014 Intent (51939)By: Fast DO, Sangeetha A Fast DO, Comments: Lot:[id number]:02/29/16Dose:0.5mgRoute:imSite:l armGiven By:BATSHEVA signed Sangeetha A Ultrasound - LiverBy: Fast DO, Sangeetha On: 05-Jul-2014 Intent A Fast DO, Sangeetha A BILATERAL MAMMOGRAMS (09989)By: Fast On: 05-Jul-2014 Intent DO, Sangeetha A Fast DO, Sangeetha A Ultrasound - ThyroidBy: Fast DO, On: 05-Jul-2014 Intent Sangeetha A Fast DO, Sangeetha A ADMINISTRATION OF INFLUENZA VIRUS On: 05-Jul-2014 Intent VACCINE (G0008)By: Fast DO, Sangeetha A Comments: Influenzalot:[id number]:03/25/2015dose:0.5mLRoute: IMlocation:R armgiven by:marika Fast DO, Sangeetha A FLU VAC, SPLIT, >3 YEARS, INTRAMUSC On: 05-Jul-2014 Intent (15332)By: Arpan Irvin DOa A Fast DO, Sangeetha A INFUSION, NORMAL SALINE SOLUTION , On: 15-Apr-2014 Intent 250 CC (J7050)By: Angelina Winn CNP Rocephon Injection, 1 Gm (J0696)By: On: 15-Apr-2014 Intent Angelnia Winn CNP Comments: Rocephin 1gmLot #[id number]. [id number] in R hand x 1 stick with [...] SPLIT, >3 YEARS, INTRAMUSC On: 27-Jul-2013 Intent (16443)By: Tavon DAVIS, Sangeetha A Fast DO, Sangeetha A Eprescribed prescriptions (G8553)By: On: 04-Jun-2013 Intent Delisa Melendez LPN SPECIMEN HANDLING/TRANSPORT On: 04-Jun-2013 Intent (22731)By: Delisa Melendez LPN INFUSION, NORMAL SALINE SOLUTION , On: 15-Feb-2013 Intent 1000 CC (Special Coverage Comments: 500 cc Instructions Apply. See MCM: 2049) (J7030)By: Jennifer Rios MD HYDRATION IV INFUSION, INIT On: 15-Feb-2013 Intent (54912)By: Jennifer Rios MD Ultrasound - ThyroidBy: Fast DO, On: 19-Jan-2013 Intent Sangeetha A Fast DO, Sangeetha A MAMMOGRAM, SCREENING, BOTH BREASTS On: 19-Jan-2013 Intent (14911)By: Fast DO, Sangeetha A Fast DO, Comments: due in january Sangeetha A Eprescribed prescriptions (G8553)By: On: 19-Jan-2013 Intent Isabella Grigsby Pulse Oximetry (25193)By: Seb, On: 29-Sep-2012 Intent Isabella Comments: 98% [...] MAMMOGRAM, SCREENING, BOTH BREASTS On: 24-Jan-2012 Intent (98417)By: Fast DO, Sangeetha A Fast DO, Sangeetha A TDAP VACCINE >7 IM (81909)By: Fast On: 04-Oct-2011 Intent DO, Sangeetha A Fast DO, Sangeetha A Comments: Lot:[id number]:08/12/13Amt:prefilledRoute:IMSite:right deltGiven By: NATALEE Spence Aerosol Treatment (73947)By: Blanca On: 26-Aug-2011 Intent Jennifer KING Pulse Oximetry (69225)By: Blanca On: 26-Aug-2011 Intent Jennifer KING SPECIMEN HANDLING/TRANSPORT On: 23-Jul-2011 Intent (86951)By: Delisa Melendez LPN VAC, SPLIT, >3 YEARS, INTRAMUSC On: 05-Jul-2011 Intent (48509)By: Isabella Grigsby Comments: Lot #[id number]-1/20/12Site-left deltoidgiven by: Lisa Bello LPN Ultrasound - ThyroidBy: Fast DO, On: 05-Jul-2011 Intent Sangeetha A Fast DO, Sangeetha A MAMMOGRAM, SCREENING, BOTH BREASTS On: 05-Jul-2011 Intent (37360)By: Fast DO, Sangeetha A Fast DO, Sangeetha A ADMINISTRATION OF INFLUENZA VIRUS On: 05-Jul-2011 Intent VACCINE (G0008)By: Isabella Grigsbycribed prescriptions (G8553)By: On: 04-Jun-2011 Intent [address]elli [address] DO CT - Brain/HeadBy: Fast DO, Sangeetha A On: 07-Oct-2010 Intent Fast DO, Sangeetha A Comments: with and without contrast MAMMOGRAM, SCREENING, BOTH BREASTS On: 26-Jun-2010 Intent (22686)By: Fast DO, Sangeetha A Fast DO, Sangeetha A ADMINISTRATION OF INFLUENZA VIRUS On: 26-Jun-2010 Intent VACCINE (G0008)By: Fast DO, Sangeetha A Fast DO, Sangeetha A FLU VAC, SPLIT, >3 YEARS, INTRAMUSC On: 26-Jun-2010 Intent (64554)By: Fast DO, Sangeetha A Fast DO, Comments: Lot:[id number] 4PExp:12/2010Dose:0.5mlRoute:IMSite:Left DeltoidGiven by: HEIDI Alberto A Ultrasound - ThyroidBy: Fast DO, On: 07-Jan-2010 Intent Sangeetha A Fast DO, Sangeetha A CT - Spine/CervicalBy: Fast DO, On: 15-Dec-2009 Intent Sangeetha A Fast DO, Sangeetha A Comments: 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 -- need to rule out Pulse Oximetry (12495)By: Fast DO, On: 09-Jul-2009 Intent Sangeetha A Fast DO, Sangeetha A Spirometry (09335)By: Fast DO, On: 10-Jul-2009 Intent Sangeetha A Fast DO, Sangeetha A Comments: good effort and curve- mild restriciton Radiology - Chest- PA and LatBy: On: 09-Jul-2009 Intent Fast DO, Sangeetha A Fast DO, Sangeetha A Pulse Oximetry ([id number])By: Fast DO, On: 10-Jul-2009 Intent Sangeetha A Fast DO, Sangeetha A Comments: 98 FLU VAC, SPLIT, >3 YEARS, INTRAMUSC On: 09-Jul-2009 Intent ([id number])By: Isabella Grigsby Comments: Lot #[id number]-right deltoidDose0.5mlgiven by Juventino Nye LPN IMMUNIZ ADMNIN, 1 VAC, SNGL/COMBO On: 09-Jul-2009 Intent ([id number])By: Isabella Grigsby EKG ([id number])By: Fast DO, Sangeetha A On: 10-Oct-2008 Intent [...] ADMNIN, 1 VAC, SNGL/COMBO On: 10-Jul-2008 Intent ([id number])By: Fast DO, Sangeetha A Fast DO, Sangeetha A FLU VAC, SPLIT, >3 YEARS, INTRAMUSC On: 10-Jul-2008 Intent ([id number])By: Fast DO, Sangeetha A Fast DO, Comments: injection given in left deltoid, pt tolerated welllot # [id number] Sangeetha A Holter Monitor 24 hrsBy: Fast DO, On: 10-Jul-2008 Intent Sangeetha A Fast DO, Sangeetha A EKG ([id number])By: Marlene Reddy On: 10-Jul-2008 Intent Comments: ekg [...] using tylenol and will go back to [place] if need be for shot-sugar fine-n foot [...] off metformin and lisinopril andthen went to [place] for couple weeks then had multiple falls sent back to hospital and transferred to [facility] there for few weeks then to [facility] had lots of pt- and [...] Patient has been compliant with instructions. Current nj End: 01-Mar-2017 9:26 dication use: no side [...] anxiety and depression. Note for Physical exam: [facility] Wellness Physical- she is down [...] from Need for immunizati on against influenza), [facility] WELLNESS, Encounter for screening mammogram [...] Reason for hospitalization abdominal pain (Went to [facility] on 02/28/15). Hospitalization details include: abnormal [...] previously evaluated by a primary physician (at [facility]- Dr Reyes ). Presentation included lid [...] is helping her mood- has followup in [place] may 04 - her weight down 20 [...] of all the problems -goes back [facility] on tuesday and psych in 2 weeksEncounter [...] or less). 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
--- OUTSIDE RECORDS SUMMARY | 2018-10-21 23:46 | XMS RPT_ITS | Continuity of Care Document ---
:1965 Author Organization [facility] Address [facility] [address] [place] [address] Phone Care Team Providers Name Role Phone Sangeetha Irvin DO Unavailable Janelle CONLEY MD , Alejandro Andrews Unavailable Dr. Meño Conway Unavailable Jah Anthony Unavailable rGaciela Reyes Unavailable Unavailable Amelia Cota LPN Unavailable [...] Quantity: 30 {Capsule} Refills: 3 Ordered:17-Jan-2018 Jennifer iRos MD Start : 17-Jan-2018 Active PEN NEEDLES, [...] Quantity: 60 {Tablet} Refills: 3 Ordered:19-May-2018 Long POLICE AND FIRE DISPATCHER, Amelia L Start : 21-Oct-2017 End [...] : 05-Jun-2018 End : 05-Jul-2018 Inactive ERGOCALCIFEROL, [id number] (Oral Capsule) 1 (one) Capsule Capsule twice [...] : 23-Jul-2011 End : 02-Aug-2011 Inactive MAXITROL, 3.5-19176-0.1 (Ophthalmic Ointment) apply to eye lids as [...] hs (50 MG) Inactive Comments:Dr. Hankins NYSTATIN, 478528KACV/ML (Mouth/Throat Suspension) 5cc Suspension 5 times daily [...] 90 {Tablet} Refills: 3 Ordered:15-Aug-2006 Maria Teresa Psator RN Start : 15-Aug-2006 End : 03-Oct-2006 [...] Quantity: 30 {Tablet} Refills: 0 Ordered:19-May-2018 Long POLICE AND FIRE DISPATCHER, Amelia L Start : 12-May-2012 End [...] and Lateral Result: Comments: See Note; NOTES: [facility] Imaging Services [address] [place] [address] Chest PA and Lateral MR#: [id number] Acct: [id number] Name: IFEOMA ASHRAF Rep #: [id number] : 1965 F 53 From: Dimitris Valderrama DO PCP: Sangeetha Irvin DO Status: REG CLI Study: Chest PA and Lateral Date of Exam: 07/14/18 Exam# [id number] Ordering Dr: Oscar Todd TEST KITCHEN HOME ECONOMIST-C STUDY: X-RAY CHEST REASON FOR EXAM: Female, [...] Dimitris Valderrama DO at 8:47 EDT Tel [phone], Service support , CC: NUNU Todd; Sangeetha Irvin DO Quick Sketch Artist: Signed 10-Jun-2018 Pacemaker Check Result: Comments: See Note; NOTES: [facility] [address] [place] [address] Pacemaker Check Date of Service: 06/09/18 09 MR#: [id number] Acct: [id number] Name: IFEOMA ASHRAF Rep #: [id number] : 1965 From: Danica Pickering Age/Sex: 53/F Location: [facility] Status: Signed Billing Codes ICD Device Billing: ICD Dev Prog Eval, Single 06/09/18 09 <Elec tronically signed by Danica Pickering > Date Danica Pickering 06/10/18 1406<Electronically signed by Boone Ch MD> Cosigner Signat ure: Date (if applicable) Boone Ch MD CC: 08-Jun-2018 Cardiology Visit Report Result: Comments: See Note; NOTES: [facility] [address] [place] [address] OFFICE VISIT Date of Service: 05/31/18 MR#: [id number] Acct: [id number] Name: IFEOMA ASHRAF Rep #: [id number] : 1965 Provider: NUNU Todd Age/Sex: 53/F Location: [facility] Status: Signed with Addenda ADDENDUM by NUNU Todd on 06/01/18 at 0746 Addendum entered and electronic ally signed by LUPE Black 06/01/18 07:46: Patient's outside records from [facility] admission from 04/07/2018 to [...] home with requested follow-up with [facility] neurology or local neurolo gist in approximately [...] prior to saving. Follow Up 6 Months (LAB TECH) 05/31/18 (GIUSEPPE) 06/01/18 0747 <Electronically signed by [...] ral regurgitation and tricuspid regurgitation. She presented [facility] on March 08, 2018 after being found unresponsive in her bathroom. During this hospitalization she was found to have an acute left axillary and left brachial vein DVT and was started on Eliquis. She presented to [facility] emergency department in March 2018 for altered mental status. Her CT scan prior to ER visit showed possible hygroma versus subacute resolving subdural hematoma. She was transferred to [facility] for further evaluation. These [...] Rate 100 Intake Visit Reasons: [facility] to [facility] [place] Allergies amitriptyline Adverse Reaction (Severe, Verified 05/31/18 [...] meq PO DAILY #30 tab 05/31/18 [Rx] [facility] Medical History Nonrheumatic mitral (valve) insufficiency [...] prior to saving. Follow Up 6 Months (LAB TECH) 05/31/18 (GIUSEPPE) Coding Level of Care Code [...] 1556 <Electronically signed by Oscar ANDRADE> Date [facility] Peyton griffin Signature: Date (if applicable) CC: Sangeetha Irvin DO 05-Jun-2018 Oncology Visit Report Result: Comments: See Note; NOTES: [facility] [address] [place] [address] OFFICE VISIT Date of Service: 06/05/18 1314 MR#: [id number] Acct: [id number] Name: TYLOR ASHRAF Rep #: [id number] : 1965 From: Simeon Gresham MD Age/Sex: 53/F Location: [facility] Status: Signed Subjective - Date of Service Date of Service:: 06/05/18 - Chief Complaint Follow up DLBCL - His tory of Present Illness 53-year-old woman was diagnosed with non-Hodgkin's lymphoma, diffuse large B cell, stage IV of the uterine cervix with MILL TENDER WASHING/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 She had [...] stem cell transplant in February 2007 at [facility] with complete remission. She is on [...] Chronic Code Visit Office Visits / Consults: 34051 OV L3 Est 1325 <Electronically signed by Simeon Gresham MD> Date Simeon Pacheco Signature: Date (if applicable) CC: 26-May-2018 Venous Duplex Upper Extremity Result: Comments: See Note; NOTES: [facility] Cardiovascular Services [address] [place] [address] Venous Duplex US, Unilateral 05/25/18 0903 MR#: [id number] Acct: [id number] Name: IFEOMA SILVA Rep #: [id number] : 1965 53 From: Juanjo Russo MD [...] Dictated: 05/25/18 0903 Date Transcribed: 05/26/18 163 Quick Sketch Artist: Signed 06-Apr-2018 Chest 1 View (Portable) Result: Comments: See Note; NOTES: [facility] Imaging Services [address] [place] [address] Chest 1 View (Portable) MR#: [id number] Acct: [id number] Name: MARIOWAQASIFEOMA Ashok Rep #: : 1965 F 53 From: Levy Lucas DO PCP: Sangeetha Irvin DO Status: PRE ER Study: Chest 1 View (Portable) Date of Exam: 04/06/18 Exam# [id number] Ordering Dr: Dejuan Bacon MD STUDY: X-RAY [...] , CC: Sangeetha Irvin DO; Dejuan Bacon Quick Sketch Artist: Signed 05-Apr-2018 Brain/Head without Contrast Result: Comments: See Note; NOTES: [facility] Imaging Services [address] [place] [address] Brain/Head without Contrast MR#: [id number] Acct: [id number] Name: IFEOMA ASHRAF Rep # : [id number] : 1965 F 53 From: Levy Lucas DO PCP: Sangeetha Irvin DO Status: REG CLI Study: Brain/Head without Contrast Date of Exam: 04/05/18 Exam# [id number] Ordering Dr: Oscar Bartlett MD STUDY : [...] 14:06 EDT Tel , Service support 1- [phone], N.B. : The above information has been verbally conveyed by Levy Lucas DO to connected , Covering Physician, on 04/05/2018 14:06:03 (ET). CC: Sangeetha Irvin DO; Oscar Bartlett MD Quick Sketch Artist: Signed 05-Apr-2018 Brain/Head without Contrast Result: Comments: See Note; NOTES: [facility] Imaging Services [address] [place] [address] Brain/Head without Contrast MR#: [id number] Acct: [id number] Name: IFEOMA ASHRAF Rep # : [id number] : 1965 F 53 From: Levy Lucas DO PCP: Sangeetha Irvin DO Status: REG CLI Study: Brain/Head without Contrast Date of Exam: 04/05/18 Exam# [id number] Ordering Dr: Oscar Bartlett MD STUDY : [...] 14:06 EDT Tel , Service support 1- [phone], N.B. : The above information has been verbally conveyed by Levy Lucas DO to connected , Covering Physician, on 04/05/2018 14:06:03 (ET). CC: Sangeetha Irvin DO; Oscar Bartlett MD Quick Sketch Artist: Signed 31-Mar-2018 Cardiology Visit Report Result: Comments: See Note; NOTES: [facility] [address] [place] [address] OFFICE VISIT Date of Service: 03/31/18 MR#: [id number] Acct: [id number] Name: Ifeoma Ashraf Rep #: [id number] : 1965 Provider: Boone Ch MD Age/Sex: 53/F Location: [facility] Status: [...] who presented to the emergency department at [facility] on 03/08/2018 aft er being found [...] care unit. She was eventually transferred to [facility]. Her major problem at this [...] Lt brachial Intake Visit Reasons: DC to [facility] 03-14 Satellite Manager Required: No Accompanied by: mother Is [...] therapy. I would like to obtain a computational chemist ry profile to be able to [...] months. 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 (program architect) Coding Level of Care Code Off vis,est,level [...] Flow Screening Result: Comments: See Note; NOTES: [facility] Cardiovascular Services [address] [place] [address] 11/22/17 0803 MR#: [id number] Acct: [id number] Name: IFEOMA ASHRAF Rep #: [id number] [...] Dictated: 11/22/17 0803 Date Transcribed: 11/22/17 1518 Quick Sketch Artist: Signed 18-Nov-2017 Office Visit Report Result: Comments: See Note; NOTES: [facility] [address] [place] [address]. [place] [address] OFFICE VISIT Date of Service: 11/17/17 MR#: [id number] Acct: [id number] Patient: IFEOMA ASHRAF Rep #: [id number] : 1965 Provider: Danica Pickering Age/Sex: 52/F Location: [facility] Status: [...] office Interview Reason: scheduled follow up Manager Dairy: [employer] Name: Lan PRO Model: [id number] Serial #: [id number] Implant Date: 11/10/17 Year(s): 0 Implant Physician: [...] No drainage Bibiana ds Lead #1 Manager Dairy Lead 1: [employer] Model Lead 1: 7121Q/58 Serial# Lead 1: [id number] Date Implanted Lead 1: 10/10/09 Position Lead [...] in other diseases classified elsewhere I43 11/17/17 6800 <Electronically signed by Danica Pickering > Date Danica Pickering 11/18/17 0813<Electronically signed by Noe Morris MD> Cosigner Signature: Date (if applicable) Noe Morris MD CC: 10-Nov-2017 Operative Report Result: Comments: See Note; NOTES: [facility] Medical Records Department [address] [place] [address] Operative Report 11/10/17 1148 MR#: [id number] Acct: [id number] Name: SALOME ASHRAF Rep #: [id number] : 1965 52 From: Lior Ahmadi MD PCP: Sangeetha Irvin DO Status: REG [facility] [place] [place] Location: [facility] Operative Report Date of Procedure: 11/10/17 Preoperative diagnosis is device at end of life for normal battery depletion. Postoperative diagnosis same as above. After informed consent and IV antibiotics the patient was brought to the [facility] and the ski n over [...] chart documents provided by the device company accounts receivable representative procedure summary. 11/10/17 1150 <Electronically signed by Lior Ahmadi MD > Date Lior Ahmadi MD CC: Sangeetha Irvin DO; Lior Ahmadi MD Signed 03-Nov-2017 Office Visit Report Result: Comments: See Note; NOTES: [facility] [address] [place] [address] OFFICE VISIT Date of Service: 11/03/17 MR#: [id number] Acct: [id number] Patient: IFEOMA ASHRAF Rep #: [id number] : 1965 Provider: Danica Pickering Age/Sex: 52/F Location: [facility] Status: [...] office Interview Reason: routine follow up Manager Dairy: [employer] Name: Current VR Model: 1211-36Q ICD Serial #: [id number] Implant Date: 10/10/09 Year(s): 8 Implant Physician: [...] Model Lead 1: 7121Q/58 Serial# Lead 1: [id number] Date Implanted Lead 1: 10/10/09 Position Lead [...] 11/03/17 1648<Electronically signed by Boone Ch MD> [facility] Signature: Date (if applicable) Boone Ch MD CC: 03-Nov-2017 Cardiology Visit Report Result: Comments: See Note; NOTES: [facility] [place] [address] OFFICE VISIT Date of Service: 11/03/17 MR#: [id number] Acct: [id number] Name: IFEOMA ASHRAF Rep #: [id number] : 1965 Provider: Boone Ch MD Age/Sex: [...] 25 to 29 (25% per echo 03/11/2015) [facility] Medical History Type 2 diabetes mellitus [...] of automatic cardioverter/defibrillator (AICD) Z95.810 10/06/2009 @ [facility] Plan She is status post [...] was also being followed up at the [facility]. She is also on spironolactone and [...] and Lateral Result: Comments: See Note; NOTES: [facility] Imaging Services [address] [place] [address] Chest PA and Lateral MR#: [id number] Acct: [id number] Name: IFEOMA ASHRAF Rep #: [id number] : 1965 F 52 From: Dimitris Valderrama DO PCP: Sagneetha Irvin DO Status: PRE [facility] [place] [place] Study: Chest PA and Lateral Date of Exam: 11/03/17 Exam# [id number] Ordering Dr: Boone Ch MD STUDY: X-RAY [...] Dimitris Valderrama DO at 18:21 EST Tel [phone], Se rvice support , CC: Boone Ch MD; Sangeetha Irvin DO Quick Sketch Artist: Signed 14-Oct-2017 Office Visit Report Result: Comments: See Note; NOTES: [facility] [address] [place] [address]. [place] [address] OFFICE VISIT Date of Service: 10/12/17 MR#: [id number] Acct: [id number] Patient: IFEOMA ASHRAF Rep #: [id number] : 1965 Provider: Danica Pickering Age/Sex: 52/F Location: [facility] Status: Signed Comments Summary Comments: Single Chamber ICD Evaluation: Interrogation shows No VT/VF episodes since . No Alerts noted. Left pectoral pocket/incision w/o s/s of infection or erosion. Pt offers no cardiac complaints. Presenting rhythm shows Sinus Tachycardia @ 105 bpm. Left pectoral pocket/incision w/o s/s of infection or erosion. SUPERINTENDENT COMPRESSOR STATIONS=0%. Battery longevity approx 2.9 mos. At device [...] office Interview Reason: routine follow up Manager Dairy: 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 Model Lead 1: 7121Q/58 Serial# Lead 1: [id number] Date Implanted Lead 1: 10/10/09 Position Lead [...] IV Contrast Result: Comments: See Note; NOTES: [facility] Imaging Services [address] [place] [address] Abdomen WITH IV Contrast MR#: [id number] Acct: [id number] Name: IFEOMA ASHRAF Rep #: [id number] : 1965 F 52 From: Carl Vincent MD PCP: Sangeetha Irvin DO Status: REG CLI Study: Abdomen WITH IV Contrast Date of Exam: 06/15/17 Exam# [id number] Ordering Dr: Analisa Conway MD STUDY: CT [...] CC: Analisa Conway MD; Sangeetha Irvin DO Quick Sketch Artist: Signed 15-Jun-2017 Spine Cervical without Contras Result: Comments: See Note; NOTES: [facility] Imaging Services [address] [place] [address] Spine Cervical without Contras MR#: [id number] Acct: [id number] Name: IFEOMA ASHRAF p #: [id number] : 1965 F 52 From: Zev Mandujano MD PCP: Sangeetha Irvin DO Status: REG CLI Study: Spine Cervical without Contras Date of Exam: 06/15/17 Exam# [id number] Ordering Dr: Analisa Conway MD STUDY: CT [...] CC: Analisa Conway MD; Sangeetha Irvin DO Quick Sketch Artist: Signed 10-Feb-2017 Spine Lumbar without Contrast Result: Comments: See Note; NOTES: [facility] Imaging Services [address] [place] [address] Verdana 4d Spine Lumbar without Contrast MR#: [id number] Acct: [id number] Name: MARIOWAQASMARISEL Pulido Rep #: [id number] : 1965 F 51 From: Brian Gill MD PCP: Sangeetha Irvin DO Status: REG CLI Study: Spine Lumbar without Contrast Date of Exam: 02/10/17 Exam# [id number] Ordering Dr: Analisa Carr i, MD STUDY: [...] CC: Analisa Conway MD; Sangeetha Irvin DO Quick Sketch Artist: Signed 20-Jan-2017 Liver Result: Comments: See Note; NOTES: [facility] Imaging Services [address] [place] [address] Zach 4d Liver MR#: [id number] Acct: [id number] Name: IFEOMA ASHRAF Rep #: [id number] : 1965 F 51 From: Vincent Bui DO PCP: Sangeetha Irvin DO Status: REG CLI Study: Liver Date of Exam: 01/20/17 Exam# [id number] Ordering Dr: Sangeetha Irvin DO STUDY: ABDOMINAL [...] Vincent Bui DO at 23:43 EDT Tel [phone], Service support , CC: Sangeetha Irvin DO Quick Sketch Artist: Signed 20-Jan-2017 Thyroid Result: Comments: See Note; NOTES: [facility] Imaging Services [address] [place] [address] Verdana 4d Thyroid MR#: [id number] Acct: [id number] Name: IFEOMA ASHRAF Rep #: [id number] : 1965 F 51 From: Jin Rolon PCP: Sangeetha Irvin DO Status: REG CLI Study: Thyroid Date of Exam: 01/20/17 Exam# [id number] Ordering Dr: Sangeetha Irvin DO STUDY: THYROID [...] Service support , CC: Sangeetha Irvin DO Quick Sketch Artist: Signed 17-Nov-2016 Dexa Bone Density Study (HP) Result: Comments: See Note; NOTES: [facility] Imaging Services [address] [place] [address] Verdana 4d Dexa Bone Density Study (HP) MR#: [id number] Acct: [id number] Name: COL HARPAL ASHRAF Rep #: [id number] : 1965 F 51 From: Prashant Delgadillo MD PCP: Sangeetha Irvin DO Status: REG CLI Study: Dexa Bone Density Study (HP) Date of Exam: 11/17/16 Exam# [id number] Ordering Dr: Sangeetha Irvin DO STUDY: DUAL [...] Prashant Delgadillo MD at 10:52 EST Tel [phone], Service support [phone], CC: Sangeetha Irvin DO Quick Sketch Artist: Signed 17-Nov-2016 SCREENING MAMM (CAD), BILAT Result: Comments: See Note; NOTES: [facility] Imaging Services [address] [place] [address] Verdana 4d SCREENING MAMM (CAD), BILAT MR#: [id number] Acct: [id number] Name: SALOME ASHRAF Rep #: [id number] : 1965 F 51 From: Prashant Delgadillo MD PCP: Sangeetha Irvin DO Status: [facility] CLI Study: SCREENING MAMM (CAD), BILAT Date of Exam: 11/17/16 Exam# [id number] Ordering Dr: Gary Irvin DO MAMMOGRAPHY - [...] biopsy of a clinically suspiciou s abnormality. [id number] Electronically Signed: Prashant Delgadillo MD at 12:55 EST Tel [phone], Service support [phone], CC: Sangeetha Irvin DO Quick Sketch Artist: Signed 17-Nov-2016 SCREENING MAMM (CAD), BILAT Result: Comments: See Note; NOTES: [facility] Imaging Services [address] [place] [address] Verdana 4d SCREENING MAMM (CAD), BILAT MR#: [id number] Acct: [id number] Name: SALOME ASHRAF Ashok Rep #: [id number] : 1965 F 51 From: Prashant Delgadillo MD PCP: Sangeetha Irvin DO Status: REG CLI Study: SCREENING MAMM (CAD), BILAT Date of Exam: 11/17/16 Exam# [id number] Ordering Dr: Gary Irvin DO ADDENDUM by [...] delay biopsy of a clinically suspicious abnormality. [id number] Electronically Signed: Prashant Delgadillo MD at 13:07 EST Tel [phone], Service support [phone], 11/17/16 1319 Date cc: Sangeetha Irvin DO * Signed [...] delay biopsy of a clinically suspicious abnormality. [id number] Electronically Signed: Prashant Delgadillo MD at 12:55 EST Tel [phone], Ser vice support [phone], CC: Sangeetha Irvin DO Quick Sketch Artist: Signed 19-Dec-2015 Liver Result: Comments: See Note; NOTES: [facility] Imaging Services [address] [place] [address] Verdana 4d Liver MR#: [id number] Acct: [id number] Name: IFEOMA ASHRAF Rep #: [id number] : 1965 F 50 From: Ziggy Santos MD PCP: Sangeetha Irvin DO Status: REG CLI Study: Liver Date of Exam: 12/19/15 Exam# [id number] Ordering Dr: Sangeetha Irvin DO STUDY: ABDOMINAL [...] Service support , CC: Sangeetha Irvin DO Quick Sketch Artist: Signed 19-Dec-2015 Thyroid Result: Comments: See Note; NOTES: [facility] Imaging Services [address] [place] [address] Verdana 4d Thyroid MR#: [id number] Acct: [id number] Name: IFEOMA ASHRAF ep #: [id number] : 1965 F 50 From: Ziggy Santos MD PCP: Sangeetha Irvin DO Status: REG CLI Study: Thyroid Date of Exam: 12/19/15 Exam# [id number] Ordering Dr: Sangeetha Irvin DO STUDY: THYROID [...] Service support , CC: Sangeetha Irvin DO Quick Sketch Artist: Signed 14-Aug-2015 Bilat Scrn Digital AND CAD Result: Comments: See Note; NOTES: [facility] Imaging Services [address] [place] [address] Verdana 4d Bilat Scrn Digital AND CAD MR#: [id number] Acct: [id number] Name: IFEOMA ASHRAF Rep #: [id number] : 1965 F 50 From: Prashant Delgadillo MD PCP: Sangeetha Irvin DO Status: REG CLI Study: Bilat Scrn Digital AND CAD Date of Exam: 08/14/15 Exam# [id number] Order ing Dr: Sangeetha Irvin DO MAMMOGRAPHY [...] Prashant Delgadillo MD at 10:49 EST Tel [phone], Service support [phone], CC: Sangeetha Irvin DO Quick Sketch Artist: Signed 10-Mar-2015 Emergency Department Summary Result: Comments: See Note; NOTES: [facility] Medical Records Department [address] [place] [address] Emergency Department Summary MR#: [id number] Acct: [id number] Name: IFEOMA RASMUSSEN Rep #: [id number] : 1965 49 From: Mayito Roldan DO [...] way. Mayito Roldan DO T: NTS JOB: [id number] 03/10/15 2329 <Electronically signed by Mayito Roldan DO> Date Rosious Grecocarmelo DAVIS CC: Sangeetha Irvin DO Date Dictated: 02/28/15824 Date Transcribed: 02/28/15824 Quick Sketch Artist: Signed 02-Mar-2015 Emergency Department Summary Result: Comments: See Note; NOTES: [facility] Medical Records Department [address] [place] [address] Emergency Department Summary MR#: [id number] Acct: [id number] Name: IFEOMA RASMUSSEN Rep #: [id number] : 1965 49 From: Alejandro Lopez DO [...] The patient has plans to go [facility] on [facility]. I will give her local surgeon's name if she wants to speak with them or she can certainly also speak with Dr. Irvin. CLINICAL IMPRESSION: Biliary colic. Alejandro Lopez DO T: ROCK JOB: [id number] 03/02/1543 <Electronically signed by Alejandro Lopez DO> Date Alejandro Lopez DO CC: Sangeetha Irvin DO Date Dictated: 718 Date Transcribed: 02/28/15718 Quick Sketch Artist: Signed 28-Feb-2015 Discharge Instruction Result: Comments: See Note; NOTES: [facility] Medical Records Department [address] [place] [address] Discharge Instruction 02/28/15638 MR#: [id number] Acct: [id number] Name: IFEOMA ASHRAF Rep #: [id number] : 1965 49 From: Alejandro Lopez DO [...] problems, contact your doctor. Call [facility] ([phone]) or report to the closest ergency Room. Call 911 if necessary. 02/28/15639 <Electronically signed by Alejandro Lopez DO> Date Alejandro Lopez DO Cosign er Signature (If Indicated): Date CC: Sangeetha Irvin DO 28-Feb-2015 Gallbladder Result: Comments: See Note; NOTES: [facility] Imaging Services [address] [place] [address] Ultrasound Report MR#: [id number] Acct: [id number] Name: IFEOMA ASHRAF Rep #: [id number] : 1965 F 49 From: Prashant Delgadillo MD PCP: Sangeetha Irvin DO Status: REG ER Study: Gallbladder Date of Exam: 02/28/15 Exam# [id number] Ordering Dr: Alejandro Lopez DO STUDY: ABDOM [...] infiltration of the liver. Electronically Signed: Prashant Delgadilol MD at 8:15 EDT Tel [phone], Service support [phone], CC: Alejandro Lopez DO; Sangeetha Irvin DO Quick Sketch Artist: Signed 11-Feb-2015 Spine Cervical without Contras Result: Comments: See Note; NOTES: [facility] Imaging Services [address] [place], [place] [address] [address] CAT Scan Report MR#: [id number] Acct: [id number] Name: IFEOMA ASHRAF Rep #: [id number] : 1965 F 49 From: Prashant Delgadillo MD PCP: Sangeetha Irvin DO Status: REG CLI Study: Spine Cervical without Contras Date of Exam: 02/11/15 Exam# [id number] Ordering Dr: Analisa Conway MD STUDY: CT [...] Prashant Delgadillo MD at 9:49 EDT Tel [phone], Service support [phone], CC: Analisa Conway MD; Sangeetha Irvin DO Quick Sketch Artist: Signed 18-Jul-2014 Bilat Scrn Digital & CAD Result: Comments: See Note; NOTES: [facility] Imaging Services [address] [place] [address] Breast Imaging Report MR#: [id number] Acct: [id number] Name: IFEOMA ASHRAF Rep # : [id number] : 1965 F 49 From: Prashant Delgadillo MD PCP: Sangeetha Irvin DO Status: REG CLI Exam# [id number] Ordering Dr: Sangeetha Irvin DO MAMMOGRAPHY - [...] Prashant Delgadillo MD at 8:36 EDT Tel [phone], [employer] [employer] ce support [phone], CC: Sangeetha Irvin DO Quick Sketch Artist: Signed 18-Jul-2014 Liver Result: Comments: See Note; NOTES: [facility] Imaging Services [address] [place] [address] Ultrasound Report MR#: [id number] Acct: [id number] Name: IFEOMA ASHRAF Rep #: [id number] : 1965 F 49 From: Prashant Delgadillo MD PCP: Sangeetha Irvin DO Status: REG CLI Study: Liver Date of Exam: 07/18/14 Exam# [id number] Ordering Dr: Sangeetha Irvin DO STUDY: ABDOMINAL [...] Prashant Delgadillo MD at 9:34 EDT Tel [phone], Service support [phone], CC: Sangeetha Irvin DO Quick Sketch Artist: Signed 18-Jul-2014 Thyroid Result: Comments: See Note; NOTES: [facility] Imaging Services [address] [place] [address] Ultrasound Report MR#: [id number] Acct: [id number] Name: IFEOMA ASHRAF Rep #: [id number] : 1965 F 49 From: Prashant Delgadillo MD PCP: Sangeetha Irvin DO Status: REG CLI Study: Thyroid Date of Exam: 07/18/14 Exam# [id number] Ordering Dr: Sangeetha Irvin DO STUDY: THYROID [...] Delgadillo MD at 8:41 EDT T el [phone], Service support [phone], CC: Sangeetha Irvin DO Quick Sketch Artist: Signed 05-Feb-2014 Brain/Head W/WO Contrast Result: Comments: See Note; NOTES: [facility] Imaging Services [address] [place] [address] CAT Scan Report MR#: [id number] Acct: [id number] Name: IFEOMA ASHRAF Rep #: [id number] : 1965 F 48 From: Prashant Delgadillo MD PCP: Sangeetha Irvin DO Status: REG CLI Study: Brain/Head W/WO Contrast Date of Exam: 02/05/14 Exam# [id number] Ordering Dr: Fast, Sangeetha DO STUD Y: [...] Prashant Delgadillo MD at 9:19 EDT Tel [phone], Service support [phone], CC: Sangeetha Irvin DO Quick Sketch Artist: Signed Immunization Name Dates Details Influenza (3 years and up) on: 10-Jul-2008 Comments: injection given in left deltoid, pt tolerated welllot # [id number] Influenza (3 years and up) on: 09-Jul-2009 Comments: Lot #[id number]-right deltoidDose0.5mlgiven by Juventino Nye LPN Family History [...] kg/m2 Body Surface Area Calculated 2.02 m2 55-Fcp-877447:59 Temperature 97.9 f Comments: Method: Temporal Pulse [...] CRIMINALLY INSANE.CBCD, TSH, B12 TO DR. SANGEETHA IRVIN.[facility] Goggggajrh8343 [facility], [place], [address] Absolute Lymph 1.16 {X10_3/ul} (Normal) Range: 0.83-4.51 [...] 4.2-5.4 WBC 8.0 K/mm3 (Normal) Range: 4.4-11.0 24-Ssh-79457:22 Vitamin B12 659 pg/mL (Normal) Comments: BMP TO DULCE [facility].CBCD, TSH, B12 TO DR. SANGEETHA IRVIN.[facility] Pz[address]ukgnu[address] [place], [place], [address] Range: 211-911 92-Jsd-05423:20 Basic Metabolic Profile (BMP) Comments: BMP TO [facility].CBCD, TSH, B12 TO DR. SANGEETHA IRVIN.[facility] Vdsswnspfr3582 [place], [address] GAP 9 (Normal) Range: 5-15 [...] criteria.Please note revised GLUCOSE reference range /02/2018. 80-Dzv-03831:20 Thyroid Stim Hormone (TSH) Comments: BMP TO DULCE TIMMONS.CBCD, TSH, B12 TO DR. SANGEETHA IRVIN.[facility] Wmiwpnexkg0056 [facility] [address]. [place], [place], [address] TSH 4.09 {uIU/mL} (Abnormal) Range: 0.358-3.74 62-Yyc-945075:23 Basic Metabolic Profile (BMP) Comments: [facility] Nrwnbpfouh1721 [facility]. [place], [place], [address] GAP 7 (Normal) Range: 5-15 CO2 30.0 [...] A.D.A. criteria.Please note revised GLUCOSE reference range axmsbrpvk30/02/2018. 56-Ano-623155:23 BNP,B-Type NATRIURETIC PEPTIDE Comments: [facility] Voqdiyzvva6973 [facility] [place]. [place], [place], [address] B-TYPE JACKIE PEP 892.7 pg/mL (Abnormal) Range: 0-100 29-Dmk-200484:23 CBC W/Diff, Automated Comments: [facility] Cyqiidinjq5676 [facility] [address]. [place], [place], [address] Absolute Lymph 1.23 {X10_3/ul} (Normal) Range: 0.83-4.51 [...] 4.2-5.4 WBC 7.2 K/mm3 (Normal) Range: 4.4-11.0 78-Vjh-732418:41 CBC W/Diff, Automated Comments: Reason for Laboratory Test .[facility] [address]vmrwroum[address] [place], [place], [address] Absolute Lymph 0.85 {X10_3/ul} (Normal) Range: 0.83-4.51 [...] 4.2-5.4 WBC 5.7 K/mm3 (Normal) Range: 4.4-11.0 42-Wna-095302:41 Comprehensive Metabolic Profil Comments: Reason for Laboratory Test .Serial Specimen #1, #2 or #3? [facility] Raftdzasrs9951 [place], [address] GAP 8 (Normal) Range: 5-15 CO2 28.0 [...] A.D.A. criteria.Please note revised GLUCOSE reference range fgeqpltvy99/02/2018. 86-Xdg-941905:41 LDH 224 U/L (Normal) Comments: Reason for Laboratory Test .Serial Specimen #1, #2 or #3? [facility] Wgjorfzqui7402 [address] [place], [place], [address] Range: 84-246 3-Cmi-265416:41 URINE GENESIS CULTURE-IDENTIFICATN Comments: add to urine in lab; PATIENT NOT FASTINGPERFORMED BY: LabCo[address] [id number] Information: SRC: ([id number]) Result 1 ENTEAE (Abnormal) Comments: Enterobacter aerogenes1,000 [...] Range: 0.0-8.3 Comments: Khanh ECLIA methodologyPerformed at: [facility] LabCoShore Memorial HospitalHhzpjm[address] [place] [id number] Director: Omar Hood PhD, Phone: [phone] :46 CBC W/Diff, Automated Comments: [facility] Eptqbxiogp9081 [address] [place], [place], [address] Absolute Lymph 0.95 {X10_3/ul} (Normal) Range: 0.83-4.51 [...] 4.2-5.4 WBC 5.6 K/mm3 (Normal) Range: 4.4-11.0 83-Rpq-59000:46 Comprehensive Metabolic Profil Comments: PLEASE ADD T3F T4F TO BLOOD FROM 05-25-[address] [facility] [place], [place], [address] GAP 9 (Normal) Range: 5-15 CO2 28.0 [...] A.D.A. criteria.Please note revised GLUCOSE reference range tnruqqeyo60/02/2018. :46 Digoxin Level Comments: [facility] [address] [place], [place], [address] DIG 0.71 ng/mL (Abnormal) Range: 0.80-2.00 :46 Free T3 Comments: PLEASE ADD T3F T4F TO BLOOD FROM 05-25-[address] [facility] [address]. [place], [place], [address] FREE T3 3.2 pg/mL (Normal) Range: 2.18-3.98 :46 Hemoglobin A1c Comments: [address] [place], [place], [address] HGB A1C 5.4 % (Normal) Range: 4.2-6.3 :46 Lipid Profile Comments: PLEASE ADD T3F T4F TO BLOOD FROM 05-25-[address] Yropjxkidx50[address] [place], [place], [address] VLDL 22 mg/dL (Normal) Range: 5-40 LDL [...] High Risk :46 Microalb:Creat Ratio,Random UR Comments: [facility] Esvebdjuse74[address] [place], [address] MALB:CREAT 7.8 {mg/g_CRE} (Normal) MICROALBUMIN,UR 10.9 mg/L (Normal) UR CREAT 139.00 mg/dL (Normal) :46 T4 Free Direct Comments: PLEASE ADD T3F T4F TO BLOOD FROM 05-25-[address] Iokrgcdlir69[address] [place], [place], [address] T4 FREE DIRECT 1.11 ng/dL (Normal) Range: 0.76-1.46 :46 Thyroid Stim Hormone (TSH) Comments: PLEASE ADD T3F T4F TO BLOOD FROM 05-25-[address] Aarzkbpyic2439 [address], [address] TSH 0.31 {uIU/mL} (Abnormal) Range: 0.358-3.74 :46 Urinalysis, Complete Comments: How was Urine Obtained? CLEAN [facility] Uwjnoqrzvo5525 [place], [address] MUCUS, URINE 0 SEEN {/hpf} [...] :46 Vitamin B12 368 pg/mL (Normal) Comments: [facility] Cujplhfmat16[address] [place], [address] Range: 211-911 44-Zzk-94931:46 Vitamin D,25 Hydroxy Comments: [facility] Awinmknmgv3373 [place], [address] Vitamin D 25-OH 64.5 ng/mL (Normal) Range: 29.95-100.01 Comments: Vitamin D 25(OH) Status Range Deficiency <20 ng/mL (50nmol/L) Insuffciency 20 - 30 ng/mL (50 - 75 nmol/L) Sufficiency 30 - 100 ng/mL (75 - 250 nmol/L) Toxicity >100 ng/mL (>250 nmol/L) 53-Nii-001556:52 Urinalysis, Complete Comments: Order Date: 04/06/18Has pt arrived? YHow was Urine Obtained? [facility] [address]qnpzwl[address] [place], [address] HYALINE CAST 5-10 SEEN {/lpf} (Normal) [...] (Normal) CLARITY Cloudy (Normal) COLOR Yellow (Normal) 08-Xqf-132055:30 CBC W/Diff, Automated Comments: [facility] [address]et[address] [place], [place], [address] OVALOCYTE RARE (Normal) MACROCYTE 1+ (Normal) ANISO [...] 4.2-5.4 WBC 9.1 K/mm3 (Normal) Range: 4.4-11.0 49-Kln-102859:30 Comprehensive Metabolic Profil Comments: [facility] [address]axqjb[address] [place], [place], [address] GAP 12 (Normal) Range: 5-15 CO2 30.0 [...] Comments: Please note revised GLUCOSE reference range oxgisswly04/02/2018. 54-Qfa-312139:30 Lactic Acid Comments: Yes/No query for Sepsis Lactate Rule [facility] Cysaxkmtmu64[address] [place], [place], [address] LACTIC ACID 6.7 mmol/L (Abnormal) Range: 0.4-2.0 Comments: Critical Result(s) Called Lisa RIVERA at: 20:23: by: BRITTANY TORRES 37-Rhb-464106:30 Partial Thromboplast Time Comments: [facility] [address]mzkxswyt4[address] [place], [place], [address] PTT 41.3 s (Abnormal) Range: 24.1-36.2 08-Arx-814901:30 Prothrombin Time w/INR Comments: [facility] F[address]upzavw[address] [place], [place], [address] INR 2.3 (Normal) PROTIME 25.6 s (Abnormal) Range: 11.7-14.9 57-Qnm-598771:30 Troponin-I Comments: [facility] [address]vfeqnxhoi[address] [place], [place], [address] TROPONIN-I 0.046 ng/mL (Abnormal) Comments: TROPONIN-I EXPECTED [...] angiographical evidence. PLEASE NOTE: REFERENCE RANGES EDITED 02/06/1805-Apr-201888-Vcz-285343:08 Ammonia Comments: [facility] Xnsbsafnpl2347 [address] [place], [place], [address] AMMONIA 20.0 umol/L (Normal) Range: 11-32 28-Quc-537742:08 CBC-Complete Blood Cnt No Diff Comments: [facility] Rkdikloiaa3519 [address] [place], [address] MPV 10.6 fL (Normal) Range: 6.2-12.0 PLT [...] 4.2-5.4 WBC 6.6 K/mm3 (Normal) Range: 4.4-11.0 60-Nts-176260:08 Comprehensive Metabolic Profil Comments: [facility] Meendjxlxp1061 [place], [place], [address] GAP 9 (Normal) Range: 5-15 CO2 35.0 [...] Comments: Please note revised GLUCOSE reference range soohhskfx10/02/2018. 81-Dad-822748:08 Differential Comment Comments: [facility] [address]kmrwlcxs[address] [place], [place], [address] SMEAR COMMENT COMMENT (Normal) Comments: SLIDE SCANNED - 1+ ANISO NOTED. 73-Laz-23320:55 Urinalysis, Complete Comments: How was Urine Obtained? [facility]IM[facility] Xucqtpkehl[address] [place], [place], [address] AMORPHOUS 2+ (Normal) HYALINE CAST 5-10 SEEN [...] (Normal) :55 Urine Drug Screen (VISTA) Comments: [facility] Tpushcgqwg6207 [address] [place], [place], [address] TO BE CONFIRMED (Normal) Comments: CONFIRMATORY TESTING [...] TESTING MUST BE ORDERED SEPARATELY. USE TESTMNEMONIC: ORCA :59 Bedside Glucose Comments: [facility] LaboratoryPoint of Znuj75[address] [place], [place] [address] BEDSIDE GLU 169 mg/dL (Abnormal) Range: 70-110 Comments: MANAGEMENT OF PATIENT CARE PER NURSING PROTOCOL :35 Basic Metabolic Profile (BMP) Comments: [facility] [address]snppyzfcr4[address] [place], [place], [address] GAP 16 (Abnormal) Range: 5-15 CO2 15.0 mmol/L (Abnormal) Range: 21.0-32.0 CL 104 mmol/L (Normal) Range: 98-107 K 6.2 mmol/L (Abnormal) Range: 3.5-5.1 Comments: Critical Result(s) Called at: 01:06:28 03/08/2018 by:ANSLEY STANFORD,SERVICE OBSERVER CHIEF NA 135 mmol/L (Abnormal) Range: 136-145 CA [...] A.D.A. criteria.Please note revised GLUCOSE reference range jdpohiivl42/02/2018. 26-Phs-762001:59 Acetaminophen (Tylenol) Level Comments: [facility] [address]rzak[address]ijd60[address] [place], [place], [address] ACETAMINOPHEN 4.9 ug/mL (Abnormal) Range: 10.0-30.0 Comments: Slight Icterus, Result may be falsely decreased. :59 Acetone Serum Comments: [facility] Nkpfdagant67[address] [place], [address] ACETONE SERUM NEGATIVE (Normal) 61-Lkt-825633:59 Alcohol, Blood (Medical)-Serum Comments: [facility] Jxxusekjqx5875 [place], [address] SERUM ETOH 8.0 mg/dL (Normal) Comments: The serum:whole blood ethanol ratio is approximately 1.14and varies slightly with hematocrit.Medical Alcohol reference interval and critical value innon-tolerant individuals; 50 - 100 Impairment 100 Intoxication 100 - 250 Severe Poisoning 250 - 400 Deep/possible fatal coma 78-Lzi-190218:59 Digoxin Level Comments: [facility] [address] [place], [place], [address] DIG 0.32 ng/mL (Abnormal) Range: 0.80-2.00 64-Our-210107:59 Lactic Acid Comments: Yes/No query for Sepsis Lactate Rule [facility] Pineopuuby[address] [place], [place], [address] LACTIC ACID 12.4 mmol/L (Abnormal) Range: 0.4-2.0 Comments: Critical Result(s) Called at: 00:52:58 03/08/2018 by:ANSLEY OWENSSERVICE OBSERVER CHIEF 50-Odb-485718:59 Partial Thromboplast Time Comments: [place] [address] [place], [address] PTT 33.7 s (Normal) Range: 24.1-36.2 12-Ptb-242318:59 Prothrombin Time w/INR Comments: [place] [address] [place], [address] INR 2.4 (Normal) PROTIME 26.4 s (Abnormal) Range: 11.7-14.9 :59 Salicylate Comments: [place] [address] [place], [address] SALICYLATE < 1.7 mg/dL (Abnormal) Range: 2.8-20.0 Comments: Slight Icterus, Result may be falsely decreased. :[address] [facility] Comments: [place] [address] [place] [address] SO2 ISTAT 99 % (Normal) [...] TYPE ART (Normal) :52 Bedside Glucose Comments: [place] [address] [place] [address] BEDSIDE GLU 214 mg/dL (Abnormal) Range: 70-110 Comments: MANAGEMENT OF PATIENT CARE PER NURSING PROTOCOL 13-Oep-017882:37 Basic Metabolic Profile (BMP) Comments: [place] [address] [place], [place], [address] GAP 19 (Abnormal) Range: 5-15 CO2 11.0 [...] A.D.A. criteria.Please note revised GLUCOSE reference range rnhwqnabh71/02/2018. 95-Yfr-906056:37 CBC W/Diff, Automated Comments: [facility] Jxvfgiijeu4670 [address] [place], [place], [address] CRENATED RBC 1+ (Normal) ANISO 1+ (Normal) [...] K/mm3 (Normal) Range: 4.4-11.0 :37 Lipase Comments: [facility] [address] [place] [address], [id number] LIPASE 86 U/L (Normal) Range: 73-393 :37 Liver Profile Comments: [facility] [address] [place] [address], [address]140[address] D BILI 1.07 mg/dL (Abnormal) Range: 0.00-0.30 T BILI 2.40 mg/dL (Abnormal) Range: 0.20-1.00 ALT 120 U/L (Abnormal) Range: 13-56 ALK P 94 U/L (Normal) Range: 45-117 AST 149 U/L (Abnormal) Range: 15-37 Comments: Moderate Hemolysis, Result may be falsely increased. GLOB 2.9 g/dL (Normal) Range: 2.2-4.2 ALB 3.0 g/dL (Abnormal) Range: 3.2-5.0 T PROT 5.9 g/dL (Abnormal) Range: 6.4-8.2 :37 Magnesium Comments: [facility] [address] [place], [address] MG 2.0 mg/dL (Normal) Range: 1.6-2.6 Comments: Moderate Hemolysis, Result may be falsely increased. :37 Troponin-I Comments: [facility] [address] [place], [address] TROPONIN-I 0.081 ng/mL (Abnormal) Comments: TROPONIN-I EXPECTED [...] angiographical evidence. PLEASE NOTE: REFERENCE RANGES EDITED 02/06/1824-Feb-20186-Adw-701019:21 CMV ANTIBODY (00953) Comments: today; PATIENT NOT FASTINGPERFORMED BY: STORYS.JP Vskvwc5643 [facility] [id number] Cytomegalovirus (CMV) Ab, IgG <0.60 U/mL (Normal) Range: 0.00-0.59 Comments: Negative <0.60 Equivocal 0.60 - 0.69 Positive >0.69 4-Inh-117860:21 HEPATITIS PANEL (00153) Comments: today; PATIENT NOT FASTINGPERFORMED BY: STORYS.JPNew Mexico Behavior[facility] Health Institute at Las VegasWyxszs9243 [facility] [id number] Hep C Virus Ab <0.1 {s/co_ratio} (Normal) Range: 0.0-0.9 Comments: Negative: < 0.8 Indeterminate: 0.8 - 0.9 Positive: > 0.9 . The CDC recommends that a positive HCV antibody result be followed up with a HCV Nucleic Acid Amplification test (416717). Hep B Core Ab, IgM Negative (Normal) HBsAg Screen Negative (Normal) Hep A Ab, IgM Negative (Normal) 6-Hlu-554031:21 EBV Panel (76777) Comments: today; PATIENT NOT FASTINGPERFORMED BY: REINALDO [facility] Mrnpcs4048 [facility] [id number] Interpretation: SPRCS (Normal) Comments: EBV Interpretation Chart [...] <36.0 Equivocal 36.0 - 43.9 Positive >43.9 14-Mwf-378413:19 CBC W/Diff, Automated Comments: Order Date: 02/23/18Order Info: 0184-1 - CBCDOrder Info: 19718-9 - [facility] Ofoxydoblu8[address] [place], [address] MACROCYTE 1+ (Normal) ANISO RARE [...] 4.2-5.4 WBC 6.9 K/mm3 (Normal) Range: 4.4-11.0 43-Ofq-794078:19 Comprehensive Metabolic Profil Comments: Order Date: 02/23/18Order Info: 0786-1 - CMPOrder Info: 1798-8 - AMYOrder Info: 3040-3 - [facility] Elvfkgkibv4834 [address] [place], [place], [address] GAP 11 (Normal) Range: 5-15 CO2 25.0 [...] A.D.A. criteria.Please note revised GLUCOSE reference range rxobfykhd28/02/2018. 84-Dzy-334725:19 Erythrocyte Sed Rate Comments: Order Date: 02/23/18Order Info: 0184-1 - CBCDOrder Info: 60114-3 - [facility] Levlkhschn3558 [place], [address] SED RATE 16 mm/h (Normal) Range: 0-30 96-Bze-444060:19 Lipase (99677) Comments: Order Date: 02/23/18Order Info: 0786- 1 - CMPOrder Info: 1798-8 - AMYOrder Info: 3040-3 - [facility] Fpigfaicoj38[address] [place], [address] LIPASE 92 U/L (Normal) Range: 73-393 78-Pvw-785180:19 Amylase (64328) Comments: Order Date: 02/23/18Order Info: 0786- 1 - CMPOrder Info: 1798-8 - AMYOrder Info: 3040-3 - [facility] Wtkuhviwqi2507 [place], [address] ARIAN 27 U/L (Normal) Range: 25-115 3-Rut-894856:15 Amylase Comments: CMP, CBCD IS FOR DR ORONA IS FOR [facility] Bfwdpgxvad[address] [place], [place], [address] ARIAN 29 U/L (Normal) Range: 25-115 1-Qpl-023891:15 CBC W/Diff, Automated Comments: CMP, CBCD IS FOR DR ORONA IS FOR [facility] Cxjnxzoybq5568 [address] [place], [address] ANISO 1+ (Normal) Absolute Lymph 0.41 {X10_3/ul} [...] 4.2-5.4 WBC 5.3 K/mm3 (Normal) Range: 4.4-11.0 6-Qvx-904666:15 Comprehensive Metabolic Profil Comments: CMP, CBCD IS FOR DR ORONA IS FOR [facility] Xhngqtaiwo27[address] [place], [address] GAP 9 (Normal) Range: 5-15 [...] A.D.A. criteria.Please note revised GLUCOSE reference range karniklec05/02/2018. 6-Mkd-542910:15 Digoxin Level Comments: CMP, CBCD IS FOR DR ORONA IS FOR [facility] Ortrnbsbho3554 [place], [address] DIG 0.92 ng/mL (Normal) Range: 0.80-2.00 9-Qot-504475:15 Lipase Comments: [facility], CBCD IS FOR DR ORONA IS FOR [facility] [address] [place], [address] LIPASE 101 U/L (Normal) Range: 73-393 5-Not-138545:15 Lipid Profile Comments: [facility], CBCD IS FOR DR ORONA IS FOR [facility] Lqpmzdusob7579 [place], [address] VLDL 15 mg/dL (Normal) Range: [...] 200-240 mg/dL Borderline >240 mg/dL High Risk 9-Ihi-177649:15 Magnesium Comments: [facility], CBCD IS FOR DR ORONA IS FOR [facility] Mtbzrtzxxs2639 [place], [address] MG 1.8 mg/dL (Normal) Range: 1.6-2.6 0-Pwl-220904:15 Microalb:Creat Ratio,Random UR Comments: [facility], CBCD IS FOR DR ORONA IS FOR [facility] [address] [place], [address] MALB:CREAT 34.3 {mg/g_CRE} (Abnormal) MICROALBUMIN,UR 58.6 mg/L (Normal) UR CREAT 171.00 mg/dL (Normal) 8-Dna-587465:15 Thyroid Stim Hormone (TSH) Comments: CMP, CBCD IS FOR DR ORONA IS FOR [facility] Usrhqpfquf4395 [place], [address] TSH 1.84 {uIU/mL} (Normal) Range: 0.358-3.74 1-Tkb-538917:15 Vitamin B12 383 pg/mL (Normal) Comments: CMP, CBCD IS FOR DR ORONA IS FOR [facility] Kxtvwrzlyl9466 [place], [address] Range: 211-911 7-Nvk-161276:15 Vitamin D,25 Hydroxy Comments: CMP, CBCD IS FOR DR ORONA IS FOR [facility] Eiiwbxtozy8688 [place], [address] Vitamin D 25-OH 72.0 ng/mL (Normal) Range: 29.95-100.01 Comments: Vitamin D 25(OH) Status Range Deficiency <20 ng/mL (50nmol/L) Insuffciency 20 - 30 ng/mL (50 - 75 nmol/L) Sufficiency 30 - 100 ng/mL (75 - 250 nmol/L) Toxicity >100 ng/mL (>250 nmol/L) 96-Sun-406979:14 Blood Glucose , Office (82939) Blood Glucose , Office 137 (Normal) 69-Hlw-727918:14 HgA1C , Office (20068) HgA1C , Office 6.1 % (Normal) Range: 4.6 - 7.1 70-Dfe-47739:35 CBC W/Diff, Automated Comments: [facility] Cpxyzoijuh65[address] [place], [address] Absolute Lymph 1.30 {X10_3/ul} (Normal) Range: [...] 4.2-5.4 WBC 4.2 K/mm3 (Abnormal) Range: 4.4-11.0 68-Qhc-79605:33 Comprehensive Metabolic Profil Comments: Reason for Laboratory Test [facility] Itiowbxxym9613 [place], [place], [address] GAP 8 (Normal) Range: 5-15 CO2 31.0 mmol/L (Normal) Range: 21.0-32.0 CL 99 mmol/L (Normal) Range: 98-107 K 3.4 mmol/L (Abnormal) Range: 3.5-5.1 NA 138 mmol/L (Normal) Range: 136-145 T BILI 0.70 mg/dL (Normal) Range: 0.20-1.00 ALT 27 U/L (Normal) Range: 13-56 Comments: Please note revised ALT reference range hlhzuhbum14/28/2018. ALK P 102 U/L (Normal) Range: 45-117 [...] A.D.A. criteria.Please note revised GLUCOSE reference range phbcqxaeb34/02/2018. 45-Pwa-88126:33 LDH 198 U/L (Normal) Comments: Reason for Laboratory Test OVSerial Specimen #1, #2 or #3? [facility] [address]bm[address]ukwsh6[address] [place], [place], [address] Range: 84-246 40-Xje-077815:15 Culture, Urine Comments: [facility] Ebwekncikl[address] [place], [place], [address] CUUR See Note (Normal) Comments: VERBAL ORDER DR. IRVIN'S OFFICE Urine CultureORGANISM 1: Mixed Gram Positive OrganismsColony Count 11,000-25,000MIX CULTURE Mixed contaminants. Submit a new specimen if indicated. 95-Yim-496639:11 CBC W/Diff, Automated Comments: [facility] [address]knrvwaxul[address] [place], [place], [address] Absolute Lymph 1.34 {X10_3/ul} (Normal) Range: 0.83-4.51 [...] 4.2-5.4 WBC 5.4 K/mm3 (Normal) Range: 4.4-11.0 [id number] Comprehensive Metabolic Profil Comments: Comments: [facility] [id number] [place], [address] GAP 7 (Normal) Range: 5-15 CO2 28.0 mmol/L (Normal) Range: 21.0-32.0 CL 100 mmol/L (Normal) Range: 98-107 K 3.9 mmol/L (Normal) Range: 3.5-5.1 NA 135 mmol/L (Abnormal) Range: 136-145 T BILI 0.70 mg/dL (Normal) Range: 0.20-1.00 ALT 31 U/L (Normal) Range: 13-56 Comments: Please note revised ALT reference range jqzuylboz12/28/2018. ALK P 110 U/L (Normal) Range: 45-117 [...] criteria.Please note revised GLUCOSE reference range /02/2018. [id number] Urinalysis, Complete Comments: ORDERED UACDR.JACINDA ORDERED CMP AND CBCDComments: clean catchComments: clean catchHow was Urine Obtained? SURGICAL SERVICES COORDINATOR TO [facility] [id number] [place], [place], [id number] MUCUS, URINE RARE {/hpf} (Normal) BACTERIA RARE [...] (Normal) CLARITY Cloudy (Normal) COLOR Yellow (Normal) [id number] ,Serum,hCG Quali. Comments: Comments: [facility] [id number] [place], [place], [id number] HCGSQUAL NEGATIVE {Negative} (Normal) Range: 0-9 Nonpreg HCG Qual triggr 2 m[iU]/mL (Normal) [id number] Basic Metabolic Profile (BMP) Comments: [facility] [id number] [place], [place], [id number] GAP 10 (Normal) Range: 5-15 CO2 28.0 [...] A.D.A. criteria.Please note revised GLUCOSE reference range rwyoqgqhq83/02/2018. [id number]:41 CBC-Complete Blood Cnt No Diff Comments: [facility] [id number] [place], [place], [id number] MPV 9.6 fL (Normal) Range: 6.2-12.0 PLT [...] 4.2-5.4 WBC 8.7 K/mm3 (Normal) Range: 4.4-11.0 6-Cvh-785335:41 Prothrombin Time w/INR Comments: [facility] Andpuhbfom3174 [facility]. [place], [place], [address] INR 1.0 (Normal) PROTIME 12.9 s (Normal) Range: 11.7-14.9 :00 Culture, Urine Comments: [facility] Xfhabpnloc5600 [facility]. [place], [place], [address] CUUR See Note (Normal) Comments: Urine CultureORGANISM [...] &lt ;=20 S(NF) indicates non-formulary drug at [facility]. Approval by Infectious Disease Specialist required before non- formulary drugs may be ordered and/or dispensed. :27 AFP, Tumor Marker Comments: Is Patient ? NPatient's Weight (LBS.): 124Number of Fetuses: 0[facility] (refer to report for specific site)refer to report for address and phone number AFP TUMOR 2253 6.8 ng/mL (Normal) Range: 0.0-8.3 Comments: Khanh ECLIA methodologyPerformed at: CB - [facility] [address] [id number] Director: Omar Hood PhD, Phone: [phone] 95-Igz-17630:27 CBC W/Diff, Automated Comments: [facility] Xgogvfutnp6176 [address] [place], [place], [address] Absolute Lymph 1.47 {X10_3/ul} (Normal) Range: 0.83-4.51 [...] Range: 4.4-11.0 :27 Comprehensive Metabolic Profil Comments: [facility] [address] [place], [place], [address] GAP 9 (Normal) Range: 5-15 CO2 28.0 [...] Range: 70-110 :27 Microalb:Creat Ratio,Random UR Comments: [facility] [address] [place], [place], [address] MALB:CREAT 17.4 {mg/g_CRE} (Normal) MICROALBUMIN,UR 37.5 mg/L (Normal) UR CREAT 215.00 mg/dL (Normal) :40 CBC W/Diff, Automated Comments: [facility] Bwqxeiuxpx4398 [place], [address] Absolute Lymph 1.60 {X10_3/ul} (Normal) [...] 12/06/16Order Info: [id number] - *CMP Complete Metabolic PanelWChillicothe Hospital Qttulpylyu3483 [address] [place], [place], [address] GAP 10 (Normal) Range: 5-15 CO2 27.0 [...] <126 mg/dLsuggests IMPAIRED HOMEOSTASIS per A.D.A. criteria. 84-Goh-43232:15 Culture, Urine Comments: [facility] Rrsbsgrcbo5408 [place], [address] CUUR See Note (Normal) Comments: Urine CultureORGANISM [...] $ <=20 S(NF) indicates non-formulary drug at [facility]. Approval by Infectious Disease Specialist required before non-formulary drugs may be ordered and/or dispensed. :35 HgA1C , Office (08069) HgA1C , Office 6.5 % (Normal) Range: 4.6 - 7.1 :07 AFP, Tumor Marker Comments: Is Patient ? [facility] (refer to report for specific site)refer to report for address and phone number AFP TUMOR 2253 8.5 ng/mL (Abnormal) Range: 0.0-8.3 Comments: [employer] ECLIA methodologyPerformed at: [facility] [place] [id number] Director: Omar Hood PhD, Phone: [phone] :[phone] CBC W/Diff, Automated Comments: [facility] Kbbxcbeldp2799 [place], [address] Absolute Lymph 1.17 {X10_3/ul} (Normal) [...] Range: 4.4-11.0 31-May-20179:07 Comprehensive Metabolic Profil Comments: [facility] Zxagtkxddj9182 [address] [place], [place], [address] GAP 9 (Normal) Range: 5-15 CO2 28.0 [...] US Food and Drug Administration.Performed at: - [address] [id number] Director: Zia Jarvis MD, Phone: [phone] INS RES/DIAB RK . (Normal) LDL SIZE [...] . (Normal) :07 Vitamin D,25 Hydroxy Comments: [facility] Ecbbytknpa0166 [facility]. [place], [place], [address] Vitamin D 25-OH 61.8 ng/mL (Normal) Comments: Vitamin D 25(OH) Status Range Deficiency <20 ng/mL (50nmol/L) Insuffciency 20 - 30 ng/mL (50 - 75 nmol/L) Sufficiency 30 - 100 ng/mL (75 - 250 nmol/L) Toxicity >100 ng/mL (>250 nmol/L) :48 Liver Profile Comments: [facility] Hbeuvmoqqn1487 [facility]. [place], [place], [address] D BILI 0.14 mg/dL (Normal) Range: 0.00-0.30 T BILI 0.50 mg/dL (Normal) Range: 0.20-1.00 ALT 57 U/L (Normal) Range: 12-78 ALK P 94 U/L (Normal) Range: 45-117 AST 40 U/L (Abnormal) Range: 15-37 GLOB 2.8 g/dL (Normal) Range: 2.3-3.5 ALB 3.9 g/dL (Normal) Range: 3.4-5.0 T PROT 6.7 g/dL (Normal) Range: 6.4-8.2 :45 Potassium Comments: [facility] Cymtqcrodv9913 [address] [place], [place], [address] K 4.3 mmol/L (Normal) Range: 3.5-5.1 :35 CBC W/Diff, Automated Comments: [facility] Yybrnqlcrn3171 [address] [place], [place], [address] Absolute Lymph 1.24 {X10_3/ul} (Normal) Range: 0.83-4.51 [...] Range: 4.4-11.0 :35 Comprehensive Metabolic Profil Comments: [facility] Fijirmzipy[address] [place], [place], [address] GAP 10 (Normal) Range: 5-15 CO2 31.0 [...] ASPIRATION (SLIDES ONLY) See Note (Normal) Comments: [facility] [address] [place], [address] 0 Comments: Patient: IFEOMA ASHRAF : 1965 (52/F) Acct Num: [id number] Phys: Janelle KING,Alejandro Unit Num: [id number] Loc: LABSPEC Specimen: [id number] Received: 03/18/17 - 1127 Spec Ty pe: ASPIRATION TISSUES TISSUES: COMMENT Correlation with clinical, radiologic findings and appropriate follow up are necessary. CYTOLOGY GROSS Received are ten smears labeled wi th the patient's name and designated per the requisition as left thyroid FNA. Submitted for staining. / 03/18/17 TC:5 CPT: 45285 CYTOLOGY STUDY Slides are reviewed. The specimen [...] <signature on file> 01-Mar-20179:30 HEPATITIS C ANTIBODY (35859) Comments: PATIENT NOT FASTINGPERFORMED BY: STORYS.JP Qihdgj8129 [facility] CenterDiglyMaria [facility] [id number] Hep C Virus Ab <0.1 {s/co_ratio} (Normal) Range: 0.0-0.9 Comments: Negative: < 0.8 Indeterminate: 0.8 - 0.9 Positive: > 0.9 . The CDC recommends that a positive HCV antibody result be followed up with a HCV Nucleic Acid Amplification test (924756). :30 Potassium Serum (70558) Comments: PATIENT NOT FASTINGPERFORMED BY: STOR[facility].JP Ossflv4078 [facility] [facility] HospitalDiglyMaria [facility] [id number] Potassium, Serum 4.8 mmol/L (Normal) Range: 3.5-5.2 :29 HgA1C , Office (88799) HgA1C , Office 7.9 % (Abnormal) Range: 4.6 - 7.1 :53 CBC W/Diff, Automated Comments: [facility] Pgcrlywntc4015 [address] [place], [place], [address] Absolute Lymph 1.57 {X10_3/ul} (Normal) Range: 0.83-4.51 [...] Range: 4.4-11.0 :53 Comprehensive Metabolic Profil Comments: [facility] Ckyqjfrqnj0868 [address] [place], [place], [address] GAP 11 (Normal) Range: 5-15 CO2 32.0 [...] per A.D.A. criteria. :53 Lipid Profile Comments: [facility] Vqdratzooe3406 [place], [address] VLDL 37 mg/dL (Normal) Range: 5-40 LDL [...] High Risk :53 Microalb:Creat Ratio,Random UR Comments: [facility] [address] [place], [place], [address] MALB:CREAT 19.7 {mg/g_CRE} (Normal) MICROALBUMIN,UR 27.8 mg/L (Normal) UR CREAT 141.00 mg/dL (Normal) :53 Thyroid Stim Hormone (TSH) Comments: [facility] [address]ek[address] [place], [place], [address] TSH 2.39 {uIU/mL} (Normal) Range: 0.358-3.74 :53 Vitamin D,25 Hydroxy Comments: [facility] [address]vg[address] [place], [place], [address] Vitamin D 25-OH 79.9 ng/mL (Normal) Comments: Vitamin D 25(OH) Status Range Deficiency <20 ng/mL (50nmol/L) Insuffciency 20 - 30 ng/mL (50 - 75 nmol/L) Sufficiency 30 - 100 ng/mL (75 - 250 nmol/L) Toxicity >100 ng/mL (>250 nmol/L) 48-Bem-639147:08 CBC W/Diff, Automated Comments: [facility] W[address]voov[address] [place], [place], [address] Absolute Lymph 2.04 {X10_3/ul} (Normal) Range: 0.83-4.51 [...] 4.2-5.4 WBC 9.0 K/mm3 (Normal) Range: 4.4-11.0 10-Bmn-359585:08 Comprehensive Metabolic Profil Comments: [facility] Zafepovddj4041 [place], [place], [address] GAP 9 (Normal) Range: 5-15 CO2 27.0 [...] 126 mg/dLsuggests DIABETES MELLITUS per A.D.A. criteria. 48-Fam-697303:00 Culture, Urine Comments: [facility] Kmqazeggjp5699 [address] [place], [place], [address] CUUR See Note (Normal) Comments: Urine CultureORGANISM 1: Mixed Gram Positive OrganismsColony Count >100,000MIX CULTURE Mixed contaminants. Submit a new specimen if indicated. 8-Oiw-486751:25 CBC W/Diff, Auto - EPLAB Comments: At [facility] Outpatient [facility] Medical Oncologypatients receive CBC w/auto Differential ONLY. Physicianwill place an order for a manual differential or Pathologistreview at his discretion. [facility] OUTPATIENT [facility]. [address] [place] [address] [address] LOW ALTITUDE AIR DEFENSE OFFICER: MATEO CASTANEDA DO PH:[phone] Hospital Xitisdaoej8458 [address] [place], [place], [address] Absolute Lymph 1.42 {X10_3/uL} (Normal) Range: 0.83-4.51 [...] 4.2-5.4 WBC 6.3 K/mm3 (Normal) Range: 4.4-11.0 9-Cjl-956498:25 Comprehensive Metabolic Profil Comments: Order Date: 06/07/16Order Date: 06/07/16erial Specimen #1, #2 or #3? 1[facility] Lxzzcxrkzj5154 [place], [place], [address] GAP 11 (Normal) Range: 5-15 CO2 24.0 [...] 200 mg/dLsuggests DIABETES MELLITUS per A.D.A. criteria. 5-Qxi-391573:25 LDH 208 U/L (Normal) Comments: Order Date: 06/07/16Order Date: 16Serial Specimen #1, #2 or #3? [address] [place] [address] Uyhzjzlcvf7801 [place], [address] Range: 84-246 5-Aif-147962:25 Uric Acid Comments: Order Date: 06/07/16Order Date: 16Serial Specimen #1, #2 or #3? [address] [place] [address] Nakzcppgio7140 [place], [address] URIC 3.8 mg/dL (Normal) Range: 2.6-6.0 Comments: The drugs N-Acetylcysteine and Metamizole may falsely deressthis assay. :10 HgA1C , Office (46867) HgA1C , Office 8.0 % (Abnormal) Range: 4.6 - 7.1 :10 Blood Glucose , Office (04234) Blood Glucose , Office 223 (Normal) :24 AFP, Tumor Marker Comments: Is Patient ? [facility] (refer to report for specific site)refer to report for address and phone number AFP TUMOR 2253 8.5 ng/mL (Abnormal) Range: 0.0-8.3 Comments: Khanh ECLIA methodologyPerformed at: - [facility] [address] [id number] Director: Omar Hood PhD, Phone: [phone] :24 CBC W/Diff, Automated Comments: [facility] Ttfhnchkgk3926 [address] [place], [place], [address] Absolute Lymph 1.35 {X10_3/ul} (Normal) Range: 0.83-4.51 [...] 4.2-5.4 WBC 4.1 K/mm3 (Abnormal) Range: 4.4-11.0 00-Zcm-15017:24 Comprehensive Metabolic Profil Comments: [facility] Zqxjxpinda6790 [address] [place], [place], [address] GAP 9 (Normal) Range: 5-15 CO2 27.0 [...] 126 mg/dLsuggests DIABETES MELLITUS per A.D.A. criteria. 11-Kxh-60389:24 NMR Lipoprofile Comments: [facility] (refer to report [...] the US Food and Drug Administration.Performed at: [address] [id number] Director: Zia Jarvis MD, Phone: [phone] INS RES/DIAB RK . (Normal) LDL SIZE [...] mg/dL (Normal) Range: 100-199 LIPIDS . (Normal) 04-Zki-780525:53 CBC W/Diff, Automated Comments: [facility] Knwovmiodv0554 [place], [address] Absolute Lymph 1.41 {X10_3/ul} (Normal) [...] Range: 4.4-11.0 :53 Comprehensive Metabolic Profil Comments: [facility] Myuebhtetq0938 [address] [place], [place], [address] GAP 13 (Normal) Range: 5-15 CO2 24.0 [...] 200 mg/dLsuggests DIABETES MELLITUS per A.D.A. criteria. 34-Dcv-12748:42 CBC W/Diff, Automated Comments: [facility] Swmhelzrnu6061 [address] [place], [place], [address] Absolute Lymph 1.92 {X10_3/ul} (Normal) Range: 0.83-4.51 [...] 4.2-5.4 WBC 6.2 K/mm3 (Normal) Range: 4.4-11.0 80-Mpf-37339:42 Comprehensive Metabolic Profil Comments: [facility] Scgyadrrbv9452 [address] [place], [place], [address] GAP 11 (Normal) Range: 5-15 CO2 25.0 [...] :55 Magnesium Comments: Order Date: 06/07/16Order Date: 06/07/16[facility] Gfwwlmjqwi60[address] [place], [place], [address](353) MG 2.0 mg/dL (Normal) Range: 1.8-2.4 :57 CBC W/Diff, Auto - EPLAB Comments: At [facility] Outpatient [facility] Medical Oncologypatients receive CBC w/auto Differential ONLY. Physicianwill place an order for a manual differential or Pathologistreview at his discretion. [facility] OUTPATIENT [facility]. [address] [place] [address] [address] LOW ALTITUDE AIR DEFENSE OFFICER: MATEO CASTANEDA DO PH:[phone] Hospital Neeybtriyw9491 [address] [place], [place], [phone] Absolute Lymph 1.38 {X10_3/uL} (Normal) Range: 0.83-4.51 [...] Profil Comments: Order Date: 06/07/16OV Order #: [id number] Specimen #1, #2 or #3? 1 [id number] Hospital Qrizmkufah6775 [place], [address] GAP 13 (Normal) Range: 5-15 CO2 24.0 [...] (Normal) Comments: Order Date: 06/07/16 Order #: [id number] Specimen #1, #2 or #3? [id number] [place] [address] [place], [address] Range: 84-246 :56 Magnesium Comments: Order Date: 06/07/16 Order #: [id number] Specimen #1, #2 or #3? [id number] [place] [address] [place], [address] MG 1.5 mg/dL (Abnormal) Range: 1.8-2.4 :56 Uric Acid Comments: Order Date: 06/07/16 Order #: [id number] Specimen #1, #2 or #3? [address] [place] [address] [place], [address] URIC 4.8 mg/dL (Normal) Range: 2.6-6.0 Comments: The drugs N-Acetylcysteine and Metamizole may falsely deressthis assay. :30 Liver Profile Comments: [facility] [address] [place], [address] D BILI 0.13 mg/dL (Normal) Range: 0.00-0.30 T BILI 0.40 mg/dL (Normal) Range: 0.20-1.00 ALT 60 U/L (Normal) Range: 12-78 ALK P 126 U/L (Normal) Range: 50-136 AST 37 U/L (Normal) Range: 15-37 GLOB 2.7 g/dL (Normal) Range: 2.3-3.5 ALB 3.4 g/dL (Normal) Range: 3.4-5.0 T PROT 6.1 g/dL (Abnormal) Range: 6.4-8.2 :33 CBC W/AUTO DIFF WBC Comments: PATIENT NOT FASTINGPERFORMED BY: REINALDO EnerplantShore Memorial HospitalUakfut8156 [facility] [id number] Information: NURSE DRAW (24631) Immature Grans (Abs) 0.0 {x10E3/uL} (Normal) Range: [...] PANEL, COMPREHENSIVE Comments: PATIENT NOT FASTINGPERFORMED BY: EnerplantShore Memorial HospitalPvpiqx3511 [facility] [id number] (25684) ALT (SGPT) 41 [iU]/L (Abnormal) Range: 0-32 [...] (Abnormal) Range: 65-99 :09 HgA1C , Office (32318) HgA1C , Office 7.0 % (Normal) Range: 4.6 - 7.1 :14 AFP, Tumor Marker Comments: Is Patient ? [facility] (refer to report for specific site)refer to report for address and phone number AFP TUMOR 2253 7.7 ng/mL (Normal) Range: 0.0-8.3 Comments: Khanh ECLIA methodologyPerformed at: CB - [facility] [address] [id number] Director: Omar Hood PhD, Phone: [phone] :14 CBC W/Diff, Automated Comments: [facility] Xxungorpkm5074 [place], [address] ; will review on 05/17 [...] Range: 4.4-11.0 :14 Comprehensive Metabolic Profil Comments: [facility] Lvizsfhdfs5[address] [place], [place], [address] GAP 7 (Normal) Range: 5-15 CO2 28.0 [...] 126 mg/dLsuggests DIABETES MELLITUS per A.D.A. criteria. 13-Nke-12506:14 Lipid Profile Comments: [facility] Stgmhicvvk13[address] [place], [address] VLDL 36 mg/dL (Normal) Range: 5-40 LDL [...] High Risk :14 Microalb:Creat Ratio,Random UR Comments: [facility] Nlbsexnnfb0901 [address] [place], [address] ; will review on 05/17 MALB:CREAT 14.6 {mg/g_CRE} (Normal) MICROALBUMIN,UR 23.4 mg/L (Normal) UR CREAT 160.00 mg/dL (Normal) :14 Thyroid Stim Hormone (TSH) Comments: [facility] C[address]qwdvddft6781 [place], [address] TSH 1.89 {uIU/mL} (Normal) Range: 0.358-3.74 :14 Vitamin D,25 Hydroxy Comments: [facility] [address]uu[address] [place], [address] ; will review on 05/17 Vitamin D 25-OH 53.2 ng/mL (Normal) Comments: Vitamin D 25(OH) Status Range Deficiency <20 ng/mL (50nmol/L) Insuffciency 20 - 30 ng/mL (50 - 75 nmol/L) Sufficiency 30 - 100 ng/mL (75 - 250 nmol/L) Toxicity >100 ng/mL (>250 nmol/L) :23 CBC W/Diff, Automated Comments: [facility] Elmyytzfhj5179 [facility], [address] Absolute Lymph 1.65 {X10_3/ul} (Normal) Range: [...] 4.2-5.4 WBC 4.4 K/mm3 (Normal) Range: 4.4-11.0 89-Qjk-02309:23 Comprehensive Metabolic Profil Comments: [facility] Pypubalozi9416 [place], [place], [address] GAP 9 (Normal) Range: 5-15 CO2 30.0 [...] per A.D.A. criteria. :07 HgA1C , Office (35638) HgA1C , Office 8.5 % (Abnormal) Range: 4.6 - 7.1 :15 CBC W/Diff, Automated Comments: [facility] Idhmpyfxiy9[address] [place], [address] Absolute Lymph 1.76 {X10_3/ul} (Normal) Range: 0.83-4.51 [...] 4.2-5.4 WBC 6.7 K/mm3 (Normal) Range: 4.4-11.0 83-Pbj-57055:15 Comprehensive Metabolic Profil Comments: [facility] Paksgyybgg[address] [place], [place], [address] GAP 13 (Normal) Range: 5-15 CO2 23.0 [...] per A.D.A. criteria. :15 Lipid Profile Comments: [facility] Nxzqwtevcx6278 [address] [place], [place], [address] VLDL 45 mg/dL (Abnormal) Range: 5-40 LDL [...] High Risk :15 Vitamin D,25 Hydroxy Comments: [facility] Irvwuzbbxl3542 [facility] [place]. [place], [place], [address] Vitamin D 25-OH 28.8 ng/mL (Normal) Comments: Vitamin D 25(OH) Status Range Deficiency <20 ng/mL (50nmol/L) Insuffciency 20 - 30 ng/mL (50 - 75 nmol/L) Sufficiency 30 - 100 ng/mL (75 - 250 nmol/L) Toxicity >100 ng/mL (>250 nmol/L); ADDENDA: non-emergent till apt :35 CBC W/Diff, Automated Comments: [facility] Nrttwyexsa7075 [facility] [address]. [place], [place], [address] Absolute Lymph 1.26 {X10_3/ul} (Normal) Range: 0.83-4.51 [...] 4.2-5.4 WBC 4.8 K/mm3 (Normal) Range: 4.4-11.0 84-Tqv-15454:35 Comprehensive Metabolic Profil Comments: [facility] Mitirdqjsh5687 [address] [place], [place], [address] GAP 14 (Normal) Range: 5-15 CO2 26.0 [...] 200 mg/dLsuggests DIABETES MELLITUS per A.D.A. criteria. 55-Gac-55800:0 ASPIRATION (SLIDES ONLY) See Note (Normal) Comments: [facility] Tsbhnhdsqn7918 [facility] [place], [place], [address] 0 Comments: Patient: IFEOMA ASHRAF : 1965 (50/F) Acct Num: [id number] Phys: Janelle KING,Alejandro Unit Num: [id number] Loc: LABSPEC Specimen: [id number] Received: 01/06/16 - 1129 Spec Ty pe: ASPIRATION TISSUES TISSUES: COMMENT Correlation with clinical, radiologic findings and appropriate follow up are necessary. CYTOLOGY GROSS Received are 10 smears labeled wit h the patient's name and designated per the requisition as fine needle aspiration left thyroid. Submitted for staining. 01/06/16 TC:5 CPT:97445 CYTOLOGY STUDY Slides are reviewed. The spe [...] Signed Toni Yepez 01/07/16 <signature on file> 1-Cxo-320947:29 CBC W/Diff, Auto - EPLAB Comments: At [facility] Oncologypatients receive CBC w/auto Differential ONLY. Physicianwill place an order for a manual differential or Pathologistreview at his discretion. [facility] OUTPATIENT [facility]. [address] [place] [address] [place] [address] LOW ALTITUDE AIR DEFENSE OFFICER: MATEO CASTANEDA DO PH:[phone] Hospital Srxjtvmujh7041 [place], [address] Absolute Lymph 1.49 {X10_3/uL} (Normal) [...] Comments: Serial Specimen #1, #2 or #3? 1[facility] Jumbgfekxp9204 [place], [address] GAP 8 (Normal) Range: 5-15 CO2 26.0 [...] 126 mg/dLsuggests DIABETES MELLITUS per A.D.A. criteria. 0-Knj-567125:28 LDH 213 U/L (Normal) Comments: Serial Specimen #1, #2 or #3? [address] [place] [address] A[address]ireksud[address] [place], [place], [address] Range: 84-246 1-Dha-709141:28 Magnesium Comments: Serial Specimen #1, #2 or #3? [address] [place] [address] Hioyyvdaes4725 [address] [place], [place], [address] MG 1.6 mg/dL (Abnormal) Range: 1.8-2.4 5-Tnf-680292:28 Uric Acid Comments: Serial Specimen #1, #2 or #3? 1[facility] Hwkdofdvxp8104 [place], [address] URIC 4.8 mg/dL (Normal) Range: 2.6-6.0 :36 Miscellaneous Lab Procedure Comments: Comments: [id number] URINE TOX,RUN LOWEST TESTTest(s) Ordered: [id number] URINE TOX,RUN LOWEST TESTWChillicothe Hospital Rhbotixqwz6412 [place], [address] [facility] Comments: [id number] 6+OXYCODONE-BUND (ng/mL)DRUG RESULT SCREEN CUTOFF____ Amphetamines,Urine Negat LAB (Normal) scott ng/mL 1000Amphetamine test includes Amphetamine and Methamphetamine.Barbiturates Negative ng/mL 200Benzodiazepines Negative ng/mL 200Cannabinoid TEST Negative ng/mL 20Cocaine (Metab) Negative ng/mL 300Opiates Positive ng/mL 300 Opiates test includes Codeine, Morphine, Hydromorphone, Lando codone.Please Note:Confirmation performed by Mass SpectrometryCodeine NegativeMorphine NegativeHydromorphone NegativeHydrocodone Positive Hydrocodone Confirm 1950 ng/mL 300Oxycodone/Oxymorphone,Urine Negative ng/mL 300 Test includes Oxydodone and Oxymorphone. TESTI NG PERFORMED AT [facility]. ORIGINAL REPORT ON FILE IN LAB CONTAINS ADDITIONAL TEST SITE INFORMATION. :36 Urine Drug Screen (VISTA) Comments: Comments: [id number] URINE TOX,RUN LOWEST TESTList of Drugs Taken or Suspected? UNKNOWNWChillicothe Hospital Uxjekidusa2296 [address] [place], [place], [address] ; ordered by Basali THC NEGATIVE (Normal) [...] MUST BE ORDERED SEPARATELY. USE TESTMNEMONIC: UTCA 86-Xrd-930414:20 HgA1C , Office (66546) HgA1C , Office 7.3 % (Abnormal) Range: 4.6 - 7.1 :13 AFP, Tumor Marker Comments: Is Patient ? [facility] (refer to report for specific site)refer to report for address and phone number AFP TUMOR 2253 6.4 ng/mL (Normal) Range: 0.0-8.3 Comments: [employer] ECLIA methodologyPerformed at: CB - [facility] [address] [id number] Director: Omar Hood PhD, Phone: [phone] :[phone] CBC W/Diff, Automated Comments: [facility] Ugqqlitzxo9643 [place], [address] Absolute Lymph 1.59 {X10_3/ul} (Normal) [...] 4.2-5.4 WBC 5.3 K/mm3 (Normal) Range: 4.4-11.0 76-Ugr-66830:13 Comprehensive Metabolic Profil Comments: [facility] Xmymjnbyhq1852 [place], [place], [address] GAP 10 (Normal) Range: 5-15 CO2 24.0 [...] per A.D.A. criteria. :13 Lipid Profile Comments: [facility] Klxhhegjlq7202 [facility] [place], [address] ; non-emergent and pt has [...] High Risk :13 Microalb:Creat Ratio,Random UR Comments: [facility] [address] [place], [address] MALB:CREAT 17.0 {mg/g_CRE} (Normal) MICROALBUMIN,UR 43.7 mg/L (Normal) UR CREAT 257.00 mg/dL (Normal) :13 Thyroid Stim Hormone (TSH) Comments: [facility] Blbktsfefx1231 [address] [place], [address] TSH 1.82 {uIU/mL} (Normal) Range: 0.358-3.74 :13 Vitamin D,25 Hydroxy Comments: [facility] Vtfuzsezvb8[address] [place], [address] ; will review at 11/10 appt Vitamin D 25-OH 39.8 ng/mL (Normal) Comments: Vitamin D 25(OH) Status Range Deficiency <20 ng/mL (50nmol/L) Insuffciency 20 - 30 ng/mL (50 - 75 nmol/L) Sufficiency 30 - 100 ng/mL (75 - 250 nmol/L) Toxicity >100 ng/mL (>250 nmol/L) :40 CBC W/Diff, Automated Comments: [facility] Waknkzqfan3683 [place], [address] Absolute Lymph [...] 4.2-5.4 WBC 4.7 K/mm3 (Normal) Range: 4.4-11.0 81-Sti-63488:40 Comprehensive Metabolic Profil Comments: [facility] [id number] [place], [place], [id number] GAP 13 (Normal) Range: 5-15 CO2 24.0 [...] per A.D.A. criteria. :49 HgA1C , Office (50338) HgA1C , Office 7.8 % (Abnormal) Range: 4.6 - 7.1 :09 CBC W/Diff, Automated Comments: [facility] [id number] [place], [address] Absolute Lymph 1.07 {X10_3/ul} (Normal) Range: 0.83-4.51 [...] 4.2-5.4 WBC 5.3 K/mm3 (Normal) Range: 4.4-11.0 [id number] Comprehensive Metabolic Profil Comments: [facility] [id number] [place], [place], [id number] GAP 7 (Normal) Range: 5-15 CO2 28.0 [...] 200 mg/dLsuggests DIABETES MELLITUS per A.D.A. criteria. [id number] CBC W/Diff, Automated Comments: At [facility] Outpatient [facility] Medical Oncologypatients receive CBC w/auto Differential ONLY. Physicianwill place an order for a manual differential or Pathologistreview at his discretion. [facility] OUTPATIENT [facility]. [address] [address] [place] [address] LOW [employer]ITUDE [employer] OFFICER: MATEO CASTANEDA DO PH:[phone] performed at:[facility] Laborato [address] [place] [address] Absolute Lymph 1.60 {X10_3/ul} (Normal) [...] 4.2-5.4 WBC 7.0 K/mm3 (Normal) Range: 4.4-11.0 0-Fqn-165187:42 Comprehensive Metabolic Profil Comments: Serial Specimen #1, #2 or #3? 1Test performed at:[facility] [address] [place] [address] GAP 9 (Normal) Range: 5-15 [...] Comments: Please note revised CREATININE reference range ranchploj89/22/2015. BUN 20 mg/dL (Abnormal) Range: 7-18 GLU 118 mg/dL (Abnormal) Range: 70-110 Comments: Fasting Glucose result from 110 to <126 mg/dLsuggests IMPAIRED HOMEOSTASIS per A.D.A. criteria. 1-Qsn-029667:42 LDH 133 U/L (Normal) Comments: Serial Specimen #1, #2 or #3? 1Test performed at:[facility] [address] [place] [address] Range: 84-246 4-Esf-997037:42 Uric Acid Comments: Serial Specimen #1, #2 or #3? 1Test performed at:[facility] El[address] [place] [address] URIC 4.6 mg/dL (Normal) Range: 2.6-6.0 3-Etz-942411:02 CBC W/Diff, Automated Comments: Test performed at:[facility] [address] [place] [address] [id number] ; handled by vicki Absolute Lymph 1.23 [...] 4.2-5.4 WBC 4.1 K/mm3 (Abnormal) Range: 4.4-11.0 9-Xta-720872:02 Comprehensive Metabolic Profil Comments: Test performed at:[facility] [address] [place], [place] [address] GAP 12 (Normal) Range: 5-15 CO2 23.0 [...] Comments: Please note revised CREATININE reference range wfyenvnum77/22/2015. BUN 11 mg/dL (Normal) Range: 7-18 GLU 214 mg/dL (Abnormal) Range: 70-110 Comments: Glucose result greater than or equal to 200 mg/dLsuggests DIABETES MELLITUS per A.D.A. criteria. 06-Jez-751115:49 VITAMIN B-12 (CYANOCOBALAMIN) Comments: PATIENT NOT FASTINGPERFORMED BY: [facility]CoSh[facility] HospitalSszfux4250 [facility] [id number] (09305) Vitamin B12 464 pg/mL (Normal) Range: 211-946 21-Lug-096389:49 Vitamin D Hydroxy (29181) Comments: PATIENT NOT FASTINGPERFORMED BY: [facility]CoSh[facility] HospitalJqdewa7095 [facility] [id number] Vitamin D, 25-Hydroxy 11.5 ng/mL (Abnormal) Range: 30.0-100.0 Comments: Vitamin D deficiency has been defined by the [place] of[place] and an Endocrine Society practice guideline as alevel of serum 25-OH vitamin D less than 20 ng/mL (1,2).The Endocrine Society went on to further define vitamin Dinsufficiency as a level between 21 and 29 ng/mL (2).1. IOM ([place] [employer]). 2010. Dietary reference intakes for calcium and D. [place]: The National Academies Press.2. Sami MF, Sophie NC, Xiomara LARES, et al. Evaluation, treatment, and prevention of vitamin D deficiency: an Endocrine Society clinical practice guideline. JCEM. 2010; 96(7):1911-30. :49 CBC W/AUTO DIFF WBC Comments: PATIENT NOT FASTINGPERFORMED BY: [facility] Rmavna8507 [facility] [id number] Information: [id number] (73068) Immature Grans (Abs) 0.0 {x10E3/uL} (Normal) Range: [...] 3.77-5.28 WBC 6.1 {x10E3/uL} (Normal) Range: 3.4-10.8 43-Rqj-004279:28 URINE GENESIS CULTURE-NITA COL Comments: PATIENT NOT FASTINGPERFORMED BY: [facility] Odxivk6754 [facility] [id number] Information: SRC:[facility] Q73606 COUNT (29809) Antimicrobial MIHEAD (Normal) Comments: S = Susceptible; [...] Imipenem Meropenem Urine Final report (Abnormal) Culture,Comprehensive 45-Bhn-868090:24 Urinalysis, Office (59821) UA - LEUKOCYTE ESTERASE Trace (Normal) UA - NITRITE Negative (Normal) URINE UROBILINGN NITA TIMED Normal mg/dL (Normal) UA - PROTEIN 30 mg/dL (Normal) UA - PH 6 (Abnormal) UA - BLOOD Negative (Normal) UA - SPECIFIC GRAVITY 1.030 (Abnormal) UA - KETONES Moderate mg/dL (Normal) UA - BILIRUBIN Small (Normal) UA - GLUCOSE Negative (Normal) 01-Apr-20157:54 Bedside Glucose Comments: Test performed at:[facility] [address] [place] [address] BEDSIDE GLU 129 mg/dL (Abnormal) Range: 70-110 Comments: MANAGEMENT OF PATIENT CARE PER NURSING PROTOCOL 31-Mar-20159:47 Urinalysis, Office (82519) UA - LEUKOCYTE ESTERASE Trace (Normal) UA - NITRITE Negative (Normal) URINE UROBILINGN NITA TIMED 2 mg/dL (Normal) UA - PROTEIN 300 mg/dL (Normal) UA - PH 6.0 (Normal) UA - BLOOD Hemolyzed Large (Normal) UA - SPECIFIC GRAVITY 1.030 (Abnormal) UA - KETONES 15 mg/dL (Abnormal) UA - BILIRUBIN Moderate (Normal) UA - GLUCOSE Negative (Normal) 97-Tfs-377127:57 Basic Metabolic Profile (BMP) Comments: Test performed at:[facility] [address] [place] [address] 350[address] GAP 11 (Normal) Range: 5-15 CO2 27.0 [...] 126 mg/dLsuggests DIABETES MELLITUS per A.D.A. criteria. 02-Kcp-384548:57 Digoxin Level Comments: Test performed at:[facility] [address] [place] [address] 63950 DIG 1.17 ng/mL (Normal) Range: 0.80-2.00 46-Qmf-035061:57 Hemoglobin A1c Comments: Test performed at:[facility] F[address] [place] [address] HGB A1C 7.0 % (Abnormal) Range: 4.2-6.3 21-Egk-593638:57 Thyroid Stim Hormone (TSH) Comments: Test performed at:[facility] [address] [place] [address], [place] [address] TSH 0.89 {uIU/mL} (Normal) Range: 0.358-3.74 :17 Urine Culture,Comprehensive Comments: PATIENT NOT FASTINGPERFORMED BY: REINALDO [facility] Exnkif5084 Mohinder Pan [place] [id number] Information: SRC:[facility] [id number] Result 1 BETAGB (Abnormal) Comments: Beta hemolytic [...] 02/28/15How was Urine Obtained? CLEAN CATCHTest performed at:[facility] [address] [facility] [address] AMORPHOUS 1+ URATE (Normal) MUCUS, [...] :55 CBC W/Diff, Automated Comments: Test performed at:[facility] Tutxmxharr[address] [facility] [address] Absolute Lymph 1.29 {X10_3/ul} (Normal) [...] :55 Comprehensive Metabolic Profil Comments: Test performed at:[facility] [address] [place] [address] GAP 10 (Normal) Range: 5-15 [...] A.D.A. criteria. :55 Lipase Comments: Test performed at:[facility] [address] [place] [address] 129[address] LIPASE 142 U/L (Normal) Range: 70-290 6-Rkc-166545:40 HgA1C , Office (74541) HgA1C , Office 7.4 % (Abnormal) Range: 4.6 - 7.1 :03 CBC W/Diff, Automated Comments: Test performed at:[facility] [address]qwri4[address] [place] [address] Absolute Lymph 1.31 {X10_3/ul} (Normal) Range: 0.83-4.51 [...] 4.2-5.4 WBC 5.1 K/mm3 (Normal) Range: 4.4-11.0 68-Iav-822759:03 Comprehensive Metabolic Profil Comments: Test performed at:[facility] [address] [place], [place] [address] GAP 11 (Normal) Range: 5-15 CO2 26.0 [...] 126 mg/dLsuggests DIABETES MELLITUS per A.D.A. criteria. 88-Zdd-146132:00 Culture, Urine Comments: Test performed at:[facility] [address] [place], [place] [address] CUUR See Note (Normal) Comments: Urine CultureORGANISM 1: Streptococcus agalactiae (B)[facility] [place] Count 1000-10,000 Streptococcus agalactiae (B): REACTION Ampicillin $ <=0.25 S Benzylpenicillin NF <=0.06 S Ceftriaxone (other dx) $ <=0.12 S Inducable Clindamycin Resistan - Linezolid $$$$ <=2 S Vancomycin $ 0.5 S(NF) indicates non-formulary drug at [facility]. Approval by Infectious Disease Specialist required before non-formulary drugs may be ordered and/or dispensed. * CLSI guidelines does not recommend testing of cephalosporins. This interpretation is deduced from Beta-lactam/penicillin results.; ADDENDA: handled by edvin :32 CBC W/Diff, Auto - EPLAB Only Comments: At [facility] Outpatient [facility], [facility] patientsreceive CBC w/auto Differential ONLY. Physician will placean order for a manual differential or Pathologist review athis discretion. [facility] OUTPATIENT [facility]. [address] [place] [address] [address] LOW ALTITUDE AIR DEFENSE OFFICER: MATEO CASTANEDA DO PH:[phone] performed at:[facility] I[address] [place], [place] [address] ; Richie Absolute Neut 2.7 {X10_3/uL} (Normal) [...] Specimen #1, #2 or #3? 1Test performed at:[facility] [address] [place], [place] [address] Range: 87-241 Comments: ADDENDA: richie :34 TSH (32835) Comments: PATIENT WAS FASTINGPERFORMED BY: [facility] Xhqcun8206 [facility] [id number] TSH 1.240 {uIU/mL} (Normal) Range: 0.450-4.500 :34 LIPID PANEL (06052) Comments: PATIENT WAS FASTINGPERFORMED BY: [facility] Svuprx0407 [facility] [id number] LDL/HDL Ratio 2.6 {ratio_units} (Normal) Range: 0.0-3.2 [...] CREATININE RATIO Comments: PATIENT WAS FASTINGPERFORMED BY: [facility] HospitalTmoyhw4494 [facility] [id number]; non- emergent till apt tomorrow (64120) AND (97434) Microalb/Creat Ratio 14.8 {mg/g_creat} (Normal) Range: 0.0-30.0 Microalbumin, Urine 44.5 ug/mL (Abnormal) Range: 0.0-17.0 Creatinine, Urine 301.0 mg/dL (Abnormal) Range: 15.0-278.0 :34 METABOLIC PANEL, Comments: PATIENT WAS FASTINGPERFORMED BY: [facility] HospitalWodnxu2658 [facility] [id number] Information: [id number] COMPREHENSIVE (11507) ALT (SGPT) 21 [iU]/L (Normal) Range: 0-32 [...] Glucose, Serum 161 mg/dL (Abnormal) Range: 65-99 5-Vat-492761:10 HgA1C , Office (85775) HgA1C , Office 7.2 % (Abnormal) Range: 4.6 - 7.1 28-Qig-714610:47 CBC W/Diff, Automated Comments: Test performed at:[facility] [address] [place], [place] [address] ; Handled by Vicki Absolute Lymph 1.43 [...] 4.2-5.4 WBC 5.4 K/mm3 (Normal) Range: 4.4-11.0 00-Dad-657499:47 Comprehensive Metabolic Profil Comments: Test performed at:[facility] [address] [place], [place] [address] GAP 6 (Normal) Range: 5-15 CO2 30.0 [...] Microscopic Examination Comments: PATIENT NOT FASTINGPERFORMED BY: [facility]6370 [facility] [id number] Bacteria Few (Normal) Mucus Threads Present (Normal) Epithelial Cells (non renal) 0-10 {/hpf} (Normal) Range: 0 - 10 RBC 0-2 {/hpf} (Normal) Range: 0 - 2 WBC >30 {/hpf} (Abnormal) Range: 0 - 5 :01 Urinalysis, Routine Comments: PATIENT NOT FASTINGPERFORMED BY: [facility]6370 [facility] [id number] Microscopic Examination See below: (Normal) Comments: Microscopic was indicated and was performed. Nitrite, Urine Negative (Normal) Urobilinogen,Semi-Qn 0.2 mg/dL (Normal) Range: 0.0-1.9 Bilirubin Negative (Normal) Occult Blood Negative (Normal) Ketones Trace (Abnormal) Glucose Negative (Normal) Protein 1+ (Abnormal) WBC Esterase 3+ (Abnormal) Appearance Turbid (Abnormal) Urine-Color Yellow (Normal) pH 6.0 (Normal) Range: 5.0-7.5 Specific Smiley 1.030 (Normal) Range: 1.005-1.030 88-Nis-952508:18 CBCD ALC 1.30 {X10_3/ul} (Normal) Range: 0.83-4.51 [...] 4.2-5.4 WBC 4.5 K/mm3 (Normal) Range: 4.4-11.0 66-Ogd-730228:18 CMP GAP 7 (Normal) Range: 5-15 CO2 [...] mg/dLsuggests DIABETES MELLITUS per A.D.A. criteria. :01 [id number] (21843) Comments: PATIENT NOT FASTINGPERFORMED BY: [facility]6370 [facility] [id number] AFP, Serum, Tumor Marker 7.1 ng/mL (Normal) Range: 0.0-8.3 Comments: Khanh ECLIA methodology :01 PTT (Activated Partial Comments: PATIENT NOT FASTINGPERFORMED BY: [place] 7096270 [facility] [id number] Thromboplastin Time) (00823) aPTT 25 {sec} (Normal) Range: 24-33 Comments: This test has not been validated for monitoring unfractionated heparintherapy. aPTT-based therapeutic ranges for unfractionated heparintherapy have not been established. For general guidelines onHeparin monitoring, refer to the [facility] Directory of Services. :01 PT (Prothrobim Time) (34038) Comments: PATIENT NOT FASTINGPERFORMED BY: [facility]6370 [facility] [id number] Prothrombin Time 10.4 {sec} (Normal) Range: 9.1-12.0 INR 1.0 (Normal) Range: 0.8-1.2 Comments: Reference interval is for non-anticoagulated patients. . Suggested INR therapeutic range for Vitamin K anta gonist therapy: Standard Dose (moderate intensity therapeutic range): 2.0 - 3.0 Higher intensity therapeutic range 2.5 - 3.5 :01 TSH (80047) Comments: PATIENT NOT FASTINGPERFORMED BY: [place] 7096270 [facility] [id number] TSH 1.450 {uIU/mL} (Normal) Range: 0.450-4.500 :01 CBC W/AUTO DIFF WBC Comments: PATIENT NOT FASTINGPERFORMED BY: [place] 7096270 [facility] [id number] Information: [id number], [id number] (51128) Immature Grans (Abs) 0.0 {x10E3/uL} (Normal) Range: [...] CREATININE RATIO Comments: PATIENT NOT FASTINGPERFORMED BY: [facility] HospitalBtboam5128 [facility] [id number] (51379) AND (59145) Microalb/Creat Ratio 26.4 {mg/g_creat} (Normal) Range: 0.0-30.0 Microalbumin, Urine 96.0 ug/mL (Abnormal) Range: 0.0-17.0 Creatinine, Urine 364.2 mg/dL (Abnormal) Range: 15.0-278.0 5-Luis Angel-71189:01 METABOLIC PANEL, COMPREHENSIVE Comments: PATIENT NOT FASTINGPERFORMED BY: REINALDO [facility] Kaztsy9702 [facility] [id number] (93666) ALT (SGPT) 19 [iU]/L (Normal) Range: 0-32 [...] mg/dL (Abnormal) Range: 65-99 :01 LIPID PANEL (54292) Comments: PATIENT NOT FASTINGPERFORMED BY: [facility] Dbozlv7295 [address] [facility] [id number] LDL/HDL Ratio 2.1 {ratio_units} (Normal) Range: 0.0-3.2 [...] (Normal) Range: 100-199 :19 HgA1C , Office (64986) HgA1C , Office 6.3 % (Normal) Range: [...] 7-18 GLU 102 mg/dL (Normal) Range: 70-110 61-Okv-09104:59 Anaerobic & Aerobic Comments: PATIENT NOT FASTINGPERFORMED BY: [facility] HospitalCcsxml7935 [facility] [id number] Information: SRC:WND [id number] RIGHT EYE Culture (70924) Antimicrobial MIHEAD (Normal) Comments: S = Susceptible; [...] hours. Anaerobic Culture Final report (Normal) :57 [id number]-MOAXM (95586) Comments: PATIENT WAS FASTINGPERFORMED BY: [facility]6370 [facility] [id number] AFP, Serum, Tumor Marker 9.2 ng/mL (Abnormal) Range: 0.0-8.3 Comments: Khanh ECLIA methodology :57 PTT (Activated Partial Comments: PATIENT WAS FASTINGPERFORMED BY: [facility]6370 [facility] [id number] Thromboplastin Time) (56876) aPTT 26 {sec} (Normal) Range: 24-33 Comments: This test has not been validated for monitoring unfractionated heparintherapy. aPTT-based therapeutic ranges for unfractionated heparintherapy have not been established. For general guidelines onHeparin monitoring, refer to the [facility] Directory of Services. :57 PT (Prothrobim Time) (23982) Comments: PATIENT WAS FASTINGPERFORMED BY: [facility]6370 [facility] [id number] Prothrombin Time 10.5 {sec} (Normal) Range: 9.1-12.0 INR 1.0 (Normal) Range: 0.8-1.2 Comments: Reference interval is for non-anticoagulated patients. . Suggested INR therapeutic range for Vitamin K anta gonist therapy: Standard Dose (moderate intensity therapeutic range): 2.0 - 3.0 Higher intensity therapeutic range 2.5 - 3.5 :57 TSH (84867) Comments: PATIENT WAS FASTINGPERFORMED BY: [facility]6370 [facility] [id number] TSH 3.200 {uIU/mL} (Normal) Range: 0.450-4.500 :57 CBC WITH MANUAL DIFF Comments: PATIENT WAS FASTINGPERFORMED BY: [facility] HospitalPwecxe5422 [facility] [id number] Information: [id number] (97094) Immature Grans (Abs) 0.0 {x10E3/uL} (Normal) Range: [...] PANEL, COMPREHENSIVE Comments: PATIENT WAS FASTINGPERFORMED BY: [facility] HospitalTjdbru1214 [facility] [id number] (88268) ALT (SGPT) 15 [iU]/L (Normal) Range: 0-32 [...] (Abnormal) Range: 65-99 :29 HgA1C , Office (80372) HgA1C , Office 5.4 % (Normal) Range: [...] 7-18 GLU 76 mg/dL (Normal) Range: 70-110 8-Dhr-483133:50 LIPID LDL 82 mg/dL (Normal) Range: 0-130 [...] CHOL 150 mg/dL (Normal) Comments: <200 mg/dL Fcabruhaf284-936 mg/dL Borderline>240 mg/dL High Risk :50 HgA1C , Office (21008) HgA1C , Office 5.8 % (Normal) Range: [...] be sent to the patient by the [facility] within 30 days. Approximately 10% of breast cancers are not detected by mammography. Anormal mammogram should not delay biopsy of a clinically suspiciousabnormality. Signed:Prashant Delgadillo M.D.S [facility] 2012 at 9:19:01 AM [id number] Signed GP/GP If you are the referring physician and would like to consult with theradiologist who provided this interpretation, please herbie Bonilla M.D. at [phone]. If this radiologist is unavailable, youwill be directed to another radiologist to assist. If you are a patient with a question regarding this report, pleaseco ntactyour referring physician directly. Professional Interpretation Provided By: [employer], Phone , These documents contain legally protected [...] on 06/15/13920 Sign by: Prashant Delgadillo MD 72-Mla-35440:27 THYROID Radiology Report See Note Comments: STUDY: [...] Delgadillo M.D.June 15, 2013 at 2:56:26 PM [id number] 8Electronically Signed GP/GP If you are the referring physician and would like to consult with theradiologist who provided this interpretation, please contact Sarmad Bonilla at [phone]. If this radiologist is unavailable, youwill be directed to another radiologist to assist. If you are a patient with a question regarding this report, pleasecontactyour referring physician directly. manda baugh Interpretation Provided By: [employer], Phone , These documents contain legally protected [...] on 06/15/131732 Sign by: Prashant Delgadillo MD 4-Afl-451711:18 URINE GENESIS CULTURE-NITA COL Comments: PATIENT NOT FASTINGPERFORMED BY: [facility] Edtdre9470 [facility] [id number] Information: SRC: [id number] COUNT (14768) Antimicrobial MIHEAD (Normal) Comments: S = Susceptible; [...] primarily for treating urinary tract infections. (CLSI, I443-P15,2009) Urine Culture,Comprehensive Final report (Normal) 04-Jun-20138:48 Urinalysis, Office (59248) UA - LEUKOCYTE ESTERASE Large (Normal) UA - NITRITE Positive (Normal) URINE UROBILINGN NITA TIMED 2 mg/dL (Normal) UA - PROTEIN Negative mg/dL (Normal) UA - BLOOD Negative (Normal) UA - KETONES Moderate mg/dL (Normal) UA - BILIRUBIN Moderate (Normal) UA - GLUCOSE Small mg/dL (Normal) 05-Tae-89454:06 MICROALBUMIN: CREATININE RATIO Comments: PATIENT WAS FASTINGPERFORMED BY: [employer] [facility] [id number] (75961) AND (55404) Microalb/Creat Ratio 27.4 {mg/g_creat} (Normal) Range: 0.0-30.0 Microalbumin, Urine 85.2 ug/mL (Abnormal) Range: 0.0-17.0 Creatinine, Urine 311.1 mg/dL (Abnormal) Range: 15.0-278.0 19-Eaw-53572:06 METABOLIC PANEL, Comments: PATIENT WAS FASTINGPERFORMED BY: [employer]70 [facility] [id number] Information: ADD [id number] AND DRAW FEE 99 9178 COMPREHENSIVE (52908) ALT (SGPT) 29 [iU]/L (Normal) Range: 0-32 [...] Glucose, Serum 76 mg/dL (Normal) Range: 65-99 35-Ntt-65737:06 TSH (26227) Comments: PATIENT WAS FASTINGPERFORMED BY: [employer] LabCoOpenovate LabsMceqis8975 [facility] [id number] TSH 3.040 {uIU/mL} (Normal) Range: 0.450-4.500 69-Hng-61406:06 LIPID PANEL (02145) Comments: PATIENT WAS FASTINGPERFORMED BY: [employer] [facility] Kggsqn4711 [facility] [id number] LDL/HDL Ratio 2.4 {ratio_units} (Normal) Range: 0.0-3.2 HDL Cholesterol 55 mg/dL (Normal) Comments: According to ATP-III Guidelines, HDL-C >59 mg/dL is considered anegative risk factor for CHD. LDL Cholesterol Calc 134 mg/dL (Abnormal) Range: 0-99 VLDL Cholesterol Ramandeep 18 mg/dL (Normal) Range: 5-40 Cholesterol, Total 207 mg/dL (Abnormal) Range: 100-199 Triglycerides 89 mg/dL (Normal) Range: 0-149 :06 GUWGK-SMEDQPDUTJL-NNSNN (53722) Comments: PATIENT WAS FASTINGPERFORMED BY: [facility]6370 [facility] [id number] AFP, Serum, Tumor Marker 5.4 ng/mL (Normal) Range: 0.0-8.3 Comments: Khanh ECLIA methodology :06 PTT (Activated Partial Comments: PATIENT WAS FASTINGPERFORMED BY: [address] [id number] Thromboplastin Time) (31958) aPTT 27 {sec} (Normal) Range: 24-33 Comments: This test has not been validated for monitoring unfractionated heparintherapy. aPTT-based therapeutic ranges for unfractionated heparintherapy have not been established. For general guidelines onHeparin monitoring, refer to the [facility] Directory of Services. :06 PT (Prothrobim Time) (89207) Comments: PATIENT WAS FASTINGPERFORMED BY: [facility]6370 [facility] [id number] INR 1.1 (Normal) Range: 0.8-1.2 Comments: Reference interval is for non-anticoagulated patients. . Suggested INR therapeutic range for Vitamin K anta gonist therapy: Standard Dose (moderate intensity therapeutic range): 2.0 - 3.0 Higher intensity therapeutic range 2.5 - 3.5 Prothrombin Time 11.0 {sec} (Normal) Range: 9.1-12.0 :51 HgA1C , Office (70710) HgA1C , Office 5.0 % (Normal) Range: 4.6 - 7.1 :48 CBCD PATHR Reviewed (Normal) Comments: Leukopenia.Relative neutrophilia.Clinical correlation necessary.Toni Yepez M.D. 02/16/13 AMENDED REPORT 02/16/13 9723 PATH REV previously reported as: January follReason: [...] 4.2-5.4 WBC 3.6 {k/mm3} (Abnormal) Range: 4.4-11.0 61-Nzq-90234:48 CMP GAP 9 (Normal) Range: 5-15 CO2 [...] mg/dL (Normal) Range: 70-110 :03 Rapid Flu (16948 x 2) Influenza A Ag positive b (Normal) :27 METABOLIC PANEL, COMPREHENSIVE Comments: PATIENT WAS FASTINGPERFORMED BY: [facility]Co[facility] HospitalGlvcjz2268 [facility] [id number] (71850) ALT (SGPT) 25 [iU]/L (Normal) Range: 0-32 [...] mg/dL (Normal) Range: 65-99 :27 LIPID PANEL (19073) Comments: PATIENT WAS FASTINGPERFORMED BY: [facility] HospitalUlycze1742 [facility] [id number] LDL/HDL Ratio 0.9 {ratio_units} (Normal) Range: 0.0-3.2 LDL Cholesterol Calc 29 mg/dL (Normal) Range: 0-99 VLDL Cholesterol Ramandeep 17 mg/dL (Normal) Range: 5-40 HDL Cholesterol 32 mg/dL (Abnormal) Comments: According to ATP-III Guidelines, HDL-C >59 mg/dL is considered anegative risk factor for CHD. Cholesterol, Total 78 mg/dL (Abnormal) Range: 100-199 Triglycerides 84 mg/dL (Normal) Range: 0-149 :27 TSH (10216) Comments: PATIENT WAS FASTINGPERFORMED BY: [facility] HospitalTkwsmd6000 [facility] [id number] TSH 3.990 {uIU/mL} (Normal) Range: 0.450-4.500 :27 CBC WITH MANUAL DIFF Comments: PATIENT WAS FASTINGPERFORMED BY: [facility]6370 [facility] [id number] Information: [id number] (84043) Immature Grans (Abs) 0.0 {x10E3/uL} Range: 0.0-0.1 [...] 4.4 ng/mL (Normal) Range: 0.0-8.3 9:39 Comments: [employer] ECLIA methodologyPerformed at: CB - [facility] [id number] Director: Manuelito Mendez PhD, Phone: [phone] 59-Ndz-65071:39 CBCMD ANC 2.4 3/uL (Normal) Range: 2.0-7.7 [...] CHOL 130 mg/dL (Normal) Comments: <200 mg/dL Ysjhyfkjs660-356 mg/dL Borderline>240 mg/dL High Risk :39 MIACRE tMICROCREAT 16.5 {mg/g_CRE} (Normal) MIALB 23.3 mg/L (Normal) CREU 141.0 mg/dL (Normal) :39 PT INR 1.1 (Normal) PTP 13.6 s (Normal) Range: 11.9-14.4 :39 PTT PTTP 29.5 s (Normal) Range: 24.1-36.2 :17 Rapid Flu (05844 x 2) Influenza A Ag neg (Normal) :29 HgA1C , Office (39046) HgA1C , Office 5.9 % (Normal) Range: 4.6 - 7.1 :53 FT3 2.9 pg/mL (Normal) Range: 2.18-3.98 :53 T4F 1.26 ng/dL (Normal) Range: 0.76-1.46 :53 TPO 8 {IU/mL} (Normal) Range: 0-34 Comments: Performed at: [facility] Lab[address] [id number] Director: Codi Robles MD, Phone: [phone] TSH 1.23 {uIU/mL} (Normal) Range: 0.358-3.74 :04 HgA1C , Office (41844) HgA1C , Office 5.8 % (Normal) Range: [...] :26 LIPID Comments: ORDERED TSH LIPID CMP CBCSETON MEDICAL CENTERFerJACINDA ORDERED VITD CMP CBCD VLDL [...] (Normal) Comments: ORDERED TSH LIPID CMP CBCMD [facility]ITALFerJACINDA ORDERED VITD CMP CBCD Range: 0.358-3.74 :26 VITD 44.8 ng/mL (Normal) Comments: ORDERED TSH LIPID CMP [facility]ITALFerJACINDA ORDERED VITD CMP CBCD Range: 30.0-100.0 Comments: Vitamin D deficiency has been defined by the [place] [facility] and an Endocrine Society practice guideline as alevel of serum 25-OH vitamin D less than 20 ng/mL (1,2).The Endocrine Society went on to further define vitamin Dinsufficiency as a level between 21 and 29 ng/mL (2).1. IOM ([place] [employer]). 2010. Dietary reference intakes for calcium and D. [place]: The National Academies Press.2. Sami PATEL, Sophie MOORE, Xiomara LARES, et al. Evaluation, treatment, and prevention of vitamin D deficiency: an Endocrine Society clinical practice guideline. JCEM. 2010; 96(7): 1911-30.Performed at: [facility] [address] [place], [place] [id number] Director: Codi Robles MD, Phone: [phone] 27-Jan-20128:02 BILAT SCRN DIGITAL & CAD Radiology [...] Signed GP/GP Professional Interpretat ion Provided By: [facility], , To consult with a radiologist regarding this report, please call our [id number] line @ Dicta dani on 01/27/12 0813 by Faustina KING,Dukeribed on 01/27/12 0950 by ITS IMPORTSign by Faustina KING,Prashant on 01/27/12 0951 Sign by: Prashant Delgadillo MD 65-Zqr-901493:24 HgA1C , Office (13990) HgA1C , Office 5.7 % (Normal) Range: 4.6 - 7.1 30-Gbz-224471:24 Blood Glucose , Office (99321) Blood Glucose , Office 89 (Normal) 22-Dpw-297086:31 Urinalysis, Office (41635) UA - LEUKOCYTE ESTERASE Small (Normal) UA - NITRITE Positive (Normal) URINE UROBILINGN NITA TIMED Normal mg/dL (Normal) UA - PROTEIN 300 mg/dL (Normal) UA - PH 6.0 (Normal) UA - SPECIFIC GRAVITY 1.025 (Normal) UA - KETONES Small mg/dL (Normal) UA - BILIRUBIN Moderate (Normal) UA - GLUCOSE Negative (Normal) :15 HgA1C , Office (60776) HgA1C , Office 6.8 % (Normal) Range: 4.6 - 7.1 :15 Blood Glucose , Office (72484) Blood Glucose , Office 162 (Normal) 40-Nue-439224:22 THYROID Radiology Report See Note (Normal) Comments: [...] Comments: PATIENT NOT FASTINGPERFORMED BY: CB [facility] Cuxzkv[address] RoadDublin [place] [id number] Information: SRC:URC [id number] COUNT (69208) Antimicrobial MIHEAD (Normal) Comments: S = Susceptible; [...] Final report Culture,Comprehensive (Normal) :32 Urinalysis, Office (69466) UA - LEUKOCYTE ESTERASE Moderate (Normal) URINE UROBILINGN NITA TIMED Normal mg/dL (Normal) UA - PROTEIN 100 mg/dL (Normal) UA - PH 6.0 (Normal) UA - BLOOD Hemolyzed Large (Normal) UA - SPECIFIC GRAVITY 1.025 (Normal) UA - KETONES Negative mg/dL (Normal) UA - BILIRUBIN Negative (Normal) UA - GLUCOSE Negative (Normal) :28 Blood Glucose , Office (24796) Blood Glucose , Office 223 (Normal) :10 Urinalysis, Office (70279) UA - BILIRUBIN Small (Normal) UA - BLOOD Hemolyzed Large (Normal) UA - GLUCOSE Small (Normal) Comments: 100 UA - KETONES Negative mg/dL (Normal) UA - LEUKOCYTE ESTERASE Trace (Normal) UA - NITRITE Positive (Normal) UA - PH 5.0 (Normal) UA - PROTEIN 300 mg/dL (Normal) UA - SPECIFIC GRAVITY 1.020 (Normal) URINE UROBILINGN NITA TIMED 2 mg/dL (Normal) 0-Ybr-589444:29 URINE GENESIS CULTURE-NITA COL Comments: PATIENT NOT FASTINGPERFORMED BY: [facility] Yjdqfc6[address] RoadWilson [facility] Center [id number] Information: SRC:UR [id number] COUNT (19680) Antimicrobial MIHEAD (Normal) Comments: S = Susceptible; [...] mL (Normal) Urine Final report (Normal) Culture,Comprehensive 3-Aan-605663:31 Urinalysis, Office (62971) UA - BILIRUBIN Large (Normal) UA - BLOOD Hemolyzed Moderate (Normal) UA - GLUCOSE Moderate (Normal) Comments: 250 mg/dL UA - KETONES Small mg/dL (Normal) Comments: 15mg/dL UA - LEUKOCYTE ESTERASE Large (Normal) UA - NITRITE Positive (Normal) UA - PH 5.0 (Normal) UA - PROTEIN 300 mg/dL (Normal) UA - SPECIFIC GRAVITY 1.015 (Normal) URINE UROBILINGN NITA TIMED 8 mg/dL (Normal) 96-Cjh-16660:28 CBCD,SMEAR DIFF RED CELL MORPH SeeNote {NORMAL} [...] (Abnormal) Range: 0.358-3.74 :28 HgA1C , Office (36255) HgA1C , Office 8.3 % (Abnormal) Range: 4.6 - 7.1 :28 Blood Glucose , Office (09880) Blood Glucose , Office 176 (Normal) :24 [...] 200-240 mg/dL Borderline >240 mg/dL High Risk 08-Rhe-091507:54 BRAIN/HEAD W/WO CONTRAST Radiology See Note Comments: [...] 02/09/11 1702 Sign by: Prashant Delgadillo MD 98-Tgb-44299:44 HgA1C , Office (70090) HgA1C , Office 7.4 % (Abnormal) Range: 4.6 - 7.1 :44 Blood Glucose , Office (73874) Blood Glucose , Office 206 (Normal) :37 [...] Report See Note (Normal) Comments: Exam Number: [id number] AMMOGRAPHY - BILATERAL SCREENING INDICATION:Routine annual screening [...] attaching a ResultCode to this exam. ADDENDUM: [id number] HPBI/MDS Reported By: PRASHANT DELGADILLO :14 HgA1C , Office (79582) HgA1C , Office 7.0 % (Normal) Range: 4.6 - 7.1 :14 Blood Glucose , Office (26895) Blood Glucose , Office 164 (Normal) :30 LASHA DIR SEMI-QL LASHA DIRECT 24 AU/mL (Normal) :30 ANTI-dsDNA AB 10 {IU/mL} (Normal) :30 TSH 6.39 {uIU/mL} (Abnormal) Range: 0.358-3.74 23-Qep-274629:35 C-REACTIVE PROTEIN (62085) Comments: PATIENT NOT FASTINGPERFORMED BY: [employer]70 [facility] [id number] C-Reactive Protein, Quant 6.5 mg/L (Abnormal) Range: 0.0-4.9 87-Xte-480616:35 SED RATE ERYTHROCYTE (23624) Comments: PATIENT NOT FASTINGPERFORMED BY: [employer]70 [facility] [id number] Sedimentation Rate-Westergren 14 mm/h (Normal) Range: 0-20 29-Nxq-664375:35 RHEUMATOID FACTOR-QUANT (22970) Comments: PATIENT NOT FASTINGPERFORMED BY: [employer]70 [facility]Maria [facility] [id number] RA Latex Turbid. 7.6 {IU/mL} (Normal) Range: 0.0-13.9 58-Jsy-101228:35 LASHA (ANTINUCLEAR ANTIBODY) Comments: PATIENT NOT FASTINGPERFORMED BY: [facility]iciousMaria [facility] [id number] (60506) LASHA Direct Positive (Abnormal) :35 T3, FREE (TRIDOTHYRONINE) (27277) Comments: PATIENT NOT FASTINGPERFORMED BY: [facility] [facility] [id number] Triiodothyronine,Free,Serum 2.8 pg/mL (Normal) Range: 2.0-4.4 :35 T4, FREE (THYROXINE) (91591) Comments: PATIENT NOT FASTINGPERFORMED BY: [address] [id number] T4,Free(Direct) 0.76 ng/dL (Abnormal) Range: 0.82-1.77 :35 Anti-TPO Antibody (74396) Comments: PATIENT NOT FASTINGPERFORMED BY: [place] [address] [facility] [id number] Thyroid Peroxidase (TPO) Ab <6 {IU/mL} (Normal) Range: 0-34 :35 TSH (80019) Comments: PATIENT NOT FASTINGPERFORMED BY: [place] [address] [facility] [id number] TSH 5.630 {uIU/mL} (Abnormal) Range: 0.450-4.500 Comments: Please note reference interval change :35 METABOLIC PANEL, Comments: PATIENT NOT FASTINGPERFORMED BY: [place] [address] [facility] [id number] Information: [id number] COMPREHENSIVE (50733) ALT (SGPT) 55 [iU]/L (Abnormal) Range: 0-40 [...] Glucose, Serum 151 mg/dL (Abnormal) Range: 65-99 61-Ape-268417:02 GENESIS CULTURE-OTHER (10602) Comments: PATIENT NOT FASTINGPERFORMED BY: [facility]CoSh[facility] HospitalXtiweb6296 [facility] [id number] Information: SRC:THRT [id number] Result 1 Yeast isolated. (Normal) Comments: Moderate growthRequest for further identification must be madewithin 1 week. Upper Respiratory Culture Final report (Normal) 71-Zhn-46770:37 Rapid Strep Test, Office (70258) Rapid Strep Test, Office Negative (Normal) 56-Dxb-910658:11 THYROID (HP) Radiology Report See Note (Normal) Comments: Exam Number: [id number] CLINICAL:This is a 45-year-old female patient with [...] 126 mg/dLsuggests DIABETES MELLITUS per A.D.A. criteria. 11-Erx-84753:41 LIPID CHOL 147 mg/dL (Normal) Comments: <200 mg/dL Uhxgzsvat431-403 mg/dL Borderline>240 mg/dL High Risk HDL 32 mg/dL (Abnormal) Comments: Reference RangeHDL <40 mg/dL Low HDL CholesterolHDL >or= 60 mg/dL High HDL Cholesterol LDL 89 mg/dL (Normal) Range: 0-130 TRIG 128 mg/dL (Normal) Comments: Serum Triglycerides Reference IntervalNormal <150 mg/dLBorderline high 150 - 199 mg/dLHigh 200 - 499 mg/ dLVery High > or = 500 mg/dL VLDL 26 mg/dL (Normal) Range: 5-40 90-Bnb-51151:41 TSH 4.85 {uIU/mL} (Abnormal) Range: 0.358-3.74 60-Xhi-531139:50 URINE GENESIS CULTURE-NITA COL Comments: PATIENT NOT FASTINGPERFORMED BY: CB [facility] Chsvdj0542 Vines RoadDuMaria Parham Health [id number] Information: SRC:UR ADD [id number] COUNT (73354) Result 1 Klebsiella pneumoniae Comments: 1,000 Colonies/mL [...] STrimethoprim/Sulfa S Urine Final report (Normal) Culture,Comprehensive 47-Rwf-55424:55 Urinalysis, Office (41237) UA - LEUKOCYTE ESTERASE Small (Normal) UA - NITRITE Negative (Normal) URINE UROBILINGN NITA TIMED Normal mg/dL (Normal) UA - PROTEIN 30 mg/dL (Normal) UA - PH 6.0 (Normal) UA - BLOOD Negative (Normal) UA - SPECIFIC GRAVITY 1.020 (Normal) UA - KETONES Negative mg/dL (Normal) UA - BILIRUBIN Negative (Normal) UA - GLUCOSE Negative (Normal) 8-Hcn-984286:37 PET/CT,TUMOR,BASE-THIGH,SUBS Radiology Report See Note (Normal) Comments: Exam Number: [id number] EXAM: Body PET study Head to Mid [...] 44:398P, 2003). w Reported By: ADELA MOLINA 5-Hny-137215:00 PRANEETH+ELPU24 3467 ALBUMIN,U 37.7 % (Normal) WCTVT-8-HSLH,U 3.2 % (Normal) HITZI-9-HCWK,U 7.6 % (Normal) BETA GLOB,U 23.1 % (Normal) GAMMA GLOB,U 28.5 % (Normal) PRANEETH RESULT,U Comment (Normal) Comments: No monoclonality detected. M-SPIKE,UR% SeeNote % (Normal) Comments: Result: Not Observed PROTEIN, U24 62.1 {mg/24_hr} Range: 30.0-150.0 (Normal) PROTEIN,UR 2.3 mg/dL (Normal) Range: 0.0-15.0 6-Uit-813216:15 C-REACTIVE PROT < 2.90 mg/L (Normal) Range: 0.0-3.0 Comments: C-Reactive Protein (CRP) provides useful information for thediagnosis, therapy and monitoring of inflammatory processesand associated diseases. For the evaluation of Relative Riskfor Cardiovascular Dise ase, a High Sensitivity CRP (HSCRP)should be ordered. 4-Nia-786302:15 CBCD,SMEAR DIFF PLT EST SeeNote (Normal) Comments: [...] SED RATE 11 mm/h (Normal) Range: 0-20 5-Oxb-593077:15 LDH 197 U/L (Abnormal) Range: 100-190 1-Xza-156504:15 LIPID HDL 30 mg/dL (Abnormal) Comments: Reference [...] CHOL 154 mg/dL (Normal) Comments: <200 mg/dL Suclwdzni758-817 mg/dL Borderline>240 mg/dL High Risk :15 PROT.[id number] NOTE Comment (Normal) Comments: Protein electrophoresis scan will follow via computer,mail, or loan collector delivery.Performed at: [address] [id number] Director: Kamlesh Arana MD ALBUMIN,UR 54.2 % (Normal) OETEH-3-AJPB,U 1.2 % (Normal) DIESJ-4-BZFC,U 9.4 % (Normal) BETA GLOB,U 23.4 % (Normal) GAMMA GLOB,U 11.8 % (Normal) M-SPIKE,U SeeNote % (Normal) Comments: Result: Not Observed PROTEIN,UR 13.6 mg/dL (Normal) Range: 0.0-15.0 :15 SPE 437253 A/G RATIO 1.8 (Normal) Range: 0.7-2.0 GLOBULIN, [...] electrophoresis scan will follow via computer,mail, or loan collector delivery. M-SPIKE SeeNote g/dL (Normal) Comments: Result: Not Observed GAMMA GLOBULIN 0.4 g/dL (Abnormal) Range: 0.5-1.6 ALBUMIN 3.9 g/dL (Normal) Range: 3.2-5.6 ALPHA-1 GLOBUL 0.2 g/dL (Normal) Range: 0.1-0.4 ALPHA-2 GLOBUL 0.7 g/dL (Normal) Range: 0.4-1.2 BETA GLOBULIN 0.9 g/dL (Normal) Range: 0.6-1.3 PROTEIN,TOTAL 6.1 g/dL (Normal) Range: 6.0-8.5 15-Hlu-818980:28 BRAIN/HEAD WITHOUT CONTRAST Radiology Report See Note (Normal) Comments: Exam Number: [id number] CT SCAN OF BRAIN HISTORYLytic lesion, lymphoma. [...] for confirmation. Reported By: TRUE NAGEL M.D. 70-Rab-839036:23 SPINE,CERVICAL WITHOUT CONTRAS Radiology Report See Note (Normal) Comments: Exam Number: [id number] CLINICAL:44 year old female with cervical radiculopathy. [...] tumor involvement. Reported By: SHARYN JASMINE M.D. 24-Aae-606507:50 Blood Glucose , Office (12709) Blood Glucose , Office 105 (Normal) 75-Stn-757401:50 HgA1C , Office (23152) HgA1C , Office 6.1 % (Normal) Range: 4.6 - 7.1 77-Qtx-970987:24 URINE GENESIS CULTURE-NITA COL Comments: PATIENT NOT FASTINGPERFORMED BY: [facility] Agkwlv0803 [facility] [id number] Information: SRC:UR [id number] COUNT (60929) Antimicrobial MIHEAD (Normal) Comments: S = Susceptible; [...] mL (Normal) Urine Final report (Normal) Culture,Comprehensive 21-Ysh-561809:41 Urinalysis, Office (65654) UA - LEUKOCYTE ESTERASE Large (Normal) UA [...] Report See Note (Normal) Comments: Exam Number: [id number] Procedure completed. Please see MEDICAL RECORDS reports in PCI - OP - OP NOTE LET - LETTER. Reported By: BOONE CH M.D. :19 BLOOD GAS, O2 SAT ONLY - SUBSQ Radiology Report See Note (Normal) Comments: Exam Number: [id number] Procedure completed. Please see MEDICAL RECORDS reports in PCI - OP - OP NOTE LET - LETTER. Reported By: BOONE CH M.D. :19 BLOOD GAS, O2 SAT ONLY - SUBSQ Radiology Report See Note (Normal) Comments: Exam Number: [id number] Procedure completed. Please see MEDICAL RECORDS reports in PCI - OP - OP NOTE LET - LETTER. Reported By: BOONE CH M.D. 04-Aug-20096:45 RHC/LHC/CORS/LV Radiology Report See Note (Normal) Comments: Exam Number: [id number] Procedure completed. Please see MEDICAL RECORDS reports [...] 3.5-5.1 NA 135 mmol/L (Abnormal) Range: 136-145 8-Nrc-142494:59 CBC HCT 40.9 % (Normal) Range: 37-47 [...] MIXED GRAM POSITIVE ORGANISMS :58 Urinalysis, Office (65480) UA - BILIRUBIN Negative (Normal) UA - BLOOD Negative (Normal) UA - GLUCOSE Negative (Normal) UA - KETONES Negative mg/dL (Normal) UA - LEUKOCYTE ESTERASE Small (Normal) Comments: aw UA - NITRITE Negative (Normal) UA - PH 6.0 (Normal) UA - PROTEIN Negative mg/dL (Normal) UA - SPECIFIC GRAVITY 1.010 (Normal) URINE UROBILINGN NITA TIMED Normal mg/dL (Normal) :53 HgA1C , Office (72675) HgA1C , Office 5.7 % (Normal) Range: 4.6 - 7.1 :53 Blood Glucose , Office (69974) Blood Glucose , Office 133 (Normal) :24 [...] (Normal) Range: 6.4-8.2 :53 HgA1C , Office (31982) HgA1C , Office 10.0 % (Abnormal) Range: 4.6 - 7.1 :53 Blood Glucose , Office (33938) Blood Glucose , Office 410 (Normal) :46 [...] mg/dL VLDL 49 mg/dL (Abnormal) Range: 5-40 8-Vue-049507:46 MICROALB:CRE UR MALB:CREAT 33.3 {mg/g_CRE} (Abnormal) MICROALBUMIN,UR 62.2 mg/L (Normal) UR CREAT 186.7 mg/dL (Normal) 53-Gkt-328569:11 LIPID Comments: PATIENT NOT FASTING/DEMANDED TO BE [...] mg/dL VLDL 31 mg/dL (Normal) Range: -40 53-Itv-341937:11 LIVER Comments: PATIENT NOT FASTING/DEMANDED TO BE DRAWN ALT 43 U/L (Normal) Range: 30-65 D BILI 0.07 mg/dL (Normal) Range: 0.00-0.30 T BILI 0.35 mg/dL (Normal) Range: 0.00-1.00 ALB 3.4 g/dL (Normal) Range: 3.4-5.0 ALK P 210 U/L (Abnormal) Range: 50-136 AST 27 U/L (Normal) Range: 15-37 T PROT 6.4 g/dL (Normal) Range: 6.4-8.2 51-Obo-788121:23 Urinalysis, Office (17753) Comments: done BC UA - BILIRUBIN Negative (Normal) UA - BLOOD Hemolyzed Large (Normal) UA - GLUCOSE Large (Normal) Comments: > 1000mg/dL UA - KETONES Negative mg/dL (Normal) UA - LEUKOCYTE ESTERASE Moderate (Normal) UA - NITRITE Negative (Normal) UA - PH 6.0 (Normal) UA - PROTEIN 30 mg/dL (Normal) UA - SPECIFIC GRAVITY 1.010 (Normal) URINE UROBILINGN NITA TIMED Normal mg/dL (Normal) 68-Hql-875282:44 MYOCARD PERF SPECT REST/STRESS Radiology Report See Note (Normal) Comments: Exam Number: [id number] MYOCARDIAL PERFUSION SCAN TECHNIQUEThe patient was injected [...] of 37%. Reported By: NOE MORRIS M.D. 76-Smn-69855:39 SPINE, LUMBAR W/W/O CONTRAST Radiology Report See Note (Normal) Comments: Exam Number: [id number] MAGNETIC RESONANCE IMAGING OF THE LUMBAR SPINE [...] other abnormality. Reported By: SUSAN GOMEZ M.D. 52-Ihs-442308:04 CULTURE, URINE URINE CULTURE See Note {CFU/mL} (Normal) Comments: COLONY COUNT 25,000-50,000 ORGANISM 1: MIXED GRAM POSITIVE ORGANISMS 67-Quz-776671:15 Urinalysis, Office (00088) UA - LEUKOCYTE ESTERASE Small (Normal) Comments: aw UA - NITRITE Negative (Normal) UA - PH 5.0 (Normal) UA - PROTEIN Negative mg/dL (Normal) URINE UROBILINGN NITA TIMED Normal mg/dL (Normal) UA - BILIRUBIN Negative (Normal) UA - BLOOD Negative (Normal) UA - GLUCOSE Negative (Normal) UA - KETONES Negative mg/dL (Normal) UA - SPECIFIC GRAVITY 1.025 (Normal) 69-Smm-985524:09 Blood Glucose , Office (30345) Blood Glucose , Office 231 (Normal) 25-Kij-017690:09 HgA1C , Office (32764) HgA1C , Office 7.1 % (Normal) Range: 4.6 - 7.1 73-Qis-417318:42 CBCD,SMEAR DIFF CELLS COUNTED 100 (Normal) HCT [...] 47-70 WBC 4.3 K/mm3 (Abnormal) Range: 4.4-11.0 06-Wyt-308237:42 COMP METABOLIC A/G 1.2 {RATIO} (Normal) Range: [...] Disease W/O Kidney Disease>/= 90 Stage One Plqsae38 - 89 Stage Two Suspect Decreased GFR30 [...] T PROT 6.5 g/dL (Normal) Range: 6.4-8.2 17-Dhj-747994:42 LIPID CHOL 182 mg/dL (Normal) Comments: <200 [...] mg/dL VLDL 36 mg/dL (Normal) Range: 5-40 39-Koz-710338:42 MICROALB:CRE UR MALB:CREAT 35.4 {mg/g_CRE} (Abnormal) MICROALBUMIN,UR 54.7 mg/L (Normal) UR CREAT 154.6 mg/dL (Normal) 17-Vfd-856664:42 TSH 2.57 {uIU/mL} (Normal) Range: 0.34-4.82 :40 CULTURE, URINE URINE CULTURE See Note {CFU/mL} (Normal) Comments: COLONY COUNT 1000-10,000 ORGANISM 1: MIXED GRAM POS & NEG ORGANISMS :36 Urinalysis, Office (99085) UA - BILIRUBIN Negative (Normal) UA - BLOOD Non Hemolyzed Trace (Normal) UA - KETONES Negative mg/dL (Normal) UA - LEUKOCYTE ESTERASE Moderate (Normal) UA - NITRITE Negative (Normal) UA - PH 5.0 (Normal) UA - PROTEIN Negative mg/dL (Normal) UA - SPECIFIC GRAVITY 1.015 (Normal) URINE UROBILINGN NITA TIMED Normal mg/dL (Normal) UA - GLUCOSE Negative (Normal) 47-Dox-492821:20 CULTURE, URINE URINE CULTURE See Note {CFU/mL} (Normal) Comments: COLONY COUNT 25,000-50,000 ORGANISM 1: MIXED GRAM POS & NEG ORGANISMS :12 Urinalysis, Office (18849) UA - BILIRUBIN Negative (Normal) UA - BLOOD Negative (Normal) UA - GLUCOSE Negative (Normal) UA - KETONES Negative mg/dL (Normal) UA - LEUKOCYTE ESTERASE Small (Normal) UA - NITRITE Negative (Normal) UA - PH 6.0 (Normal) UA - PROTEIN Negative mg/dL (Normal) UA - SPECIFIC GRAVITY 1.005 (Normal) URINE UROBILINGN NITA TIMED Normal mg/dL (Normal) 82-Kmo-469497:08 CBCD,SMEAR DIFF CELLS COUNTED 100 (Normal) EOS [...] Range: 0.34-4.82 :28 Blood Glucose , Office (49599) Blood Glucose , Office 124 (Normal) :28 HgA1C , Office (20352) HgA1C , Office 6.1 % (Normal) Range: 4.6 - 7.1 :38 CERULOPLAS 1560 21.3 mg/dL (Normal) Range: 17.9-53.3 Comments: Performed At: [facility] [place], [place] [id number] :38 FERRITIN 189 ng/mL (Normal) Range: 8-252 :38 HEP-ABC 525210 HB CORE [id number] SeeNote (Normal) Comments: Result: Negative HB SURF [...] T PROT 6.5 g/dL (Normal) Range: 6.4-8.2 56-Ezt-320357:38 MITOCHN AB 6650 <20.0 {Units} (Normal) Range: 0.0-20.0 Comments: Negative 0.0 - 20.0 Equivocal 20.1 - 24.9 Positive >24.9 . Mitochondrial (M2) Antibodies are found in 90-96% of patients with primary biliary cirrhosis. 88-Vsa-585002:03 GGTP 61 U/L (Abnormal) Range: 5-55 :03 LIVER ALB 3.7 g/dL (Normal) Range: 3.4-5.0 ALK P 161 U/L (Abnormal) Range: 50-136 ALT 35 U/L (Normal) Range: 30-65 AST 18 U/L (Normal) Range: 15-37 D BILI 0.06 mg/dL (Normal) Range: 0.00-0.30 T BILI 0.33 mg/dL (Normal) Range: 0.00-1.00 T PROT 6.5 g/dL (Normal) Range: 6.4-8.2 7-Drc-472452:02 THYROID (HP) Radiology Report See Note (Normal) Comments: Exam Number: [id number] THYROID ULTRASOUND HISTORYThyromegaly. High-resolution, real-time linear images [...] is recommended. Reported By: TRUE NAGEL M.D. 24-Tjs-673694:05 Blood Glucose , Office (24836) Blood Glucose , Office 135 (Normal) 84-Wpc-418061:05 HgA1C , Office (01509) HgA1C , Office 5.6 % (Normal) Range: [...] Report See Note (Normal) Comments: Exam Number: [id number] CT BRAIN WITHOUT AND WITH INTRAVENOUS CONTRAST [...] clinically warranted. Reported By: AIDAN MASON M.D. 87-Jlh-534392:30 CBCD Comments: CALL [phone] TO [phone] BASO% 0.8 % (Normal) Range: 0-1 EO% [...] 1+ANISOCYTOSIS WBC 3.8 K/mm3 (Abnormal) Range: 4.4-11.0 95-Yrg-451940:30 COMP METABOLIC Comments: CALL [phone] TO [phone] A/G 1.5 {RATIO} (Normal) Range: 0.9-2.4 ALB [...] :30 LDH 206 U/L (Abnormal) Comments: CALL [phone] TO [phone] Range: 100-190 :30 URIC 5.7 mg/dL (Normal) Comments: CALL [phone] TO [phone] Range: 2.6-6.0 :30 CULT, DP WOUND Comments: [...] mg/dL (Abnormal) Range: 40-230 Comments: Performed At: [address] [id number] :41 LDH 211 U/L (Abnormal) Range: 100-190 [...] PT IN CATHLABPrecautions*: NOT APPLICABLE Range: 0.34-4.82 06-Ive-285767:20 BMP Comments: COMMENTS: BED 13 DR FASTPrecautions*: [...] 3.5-5.1 NA 136 mmol/L (Normal) Range: 136-145 46-Yvq-225884:20 CBCD Comments: COMMENTS: BED 13 DR FASTPrecautions*: [...] 47-70 WBC 23.9 K/mm3 (Abnormal) Range: 4.4-11.0 65-Qyu-65365:30 AFB C&S 377122 Comments: Precautions*: CHEMO PRECAUTIONSSPECIMEN DESCRIPTION: #2 SAME SOURCE AFB CULT See Note Comments: TESTING PERFORMED AT [facility]. ORIGINAL REPORT ON FILE IN LAB CONTAINS ADDITIONAL TEST SITE INFORMATION. (Normal) CULTURE, ACID FAST NO ACID-FAST BACILLI ISOLATED AFTER 6 WEEKS. AFB SMEAR See Note Comments: [facility]. ORIGINAL REPORT ON FILE IN LAB CONTAINS ADDITIONAL TEST SITE INFORMATION. (Normal) ACID FAST BACILLUS SMEAR NO ACID-FAST BACILLI OBSERVED ON SMEAR. 13-D CULT,ALFREDITO See Note Comments: Precautions*: CHEMO PRECAUTIONSSPECIMEN DESCRIPTION: #1 SAME SOURCE ec-2 8482 (Normal) Comments: ` TESTING PERFORMED AT [facility]. ORIGINAL REPORT ON FILE IN LAB CONTAINS ADDITIONAL TEST SITE INFORMATION. 0069 CULTURE, FUNGUS NO YEAST OR MOLD ISOLATED AFTER 4 WEEKS. :30 13-D CYTOLOGY, SeeNote Comments: Result: SEE PATHOLOGY REPORT Specimen submitted to Anatomical Pathology Department for testing. ec-2 BF/CSF (Normal) 0069 :30 86-Ity-56339:30 FLUID P-FLU (Normal) Comments: OPERATION Not noted [...] DRAWN 07/22/06-TEST MISSED Range: 100-190 :51 SPE 436709 A/G RATIO 1.3 (Normal) Range: 0.7-2.0 ALBUMIN [...] Evidenceof monoclonal protein is not apparent.Performed At: [facility] [place], [place] [id number] M-SPIKE SeeNote (Normal) Comments: Result: Not Observed NOTE: Comment (Normal) Comments: Protein electrophoresis scan will follow via mail orcourier. PROTEIN,TOTAL 6.5 g/dL (Normal) Range: 6.0-8.5 :49 Blood Glucose , Office (73710) Blood Glucose , Office 84 (Normal) :49 HgA1C , Office (82193) HgA1C , Office 6.6 % (Normal) Range: [...] tachycardia Planned Observations CBC with auto diff (95766)Indication: Diabetes mellitus type II, controlled On: 9-Zbp-231414:03 Request LIPID PANEL (23159)Indication: Diabetes mellitus type II, controlled On: :03 Request METABOLIC PANEL, COMPREHENSIVE (15314)Indication: Diabetes mellitus type II, controlled On: : Request HGB A1C ([id number])Indication: Diabetes mellitus type II, controlled On: :02 Request TSH (THYROID STIMULATING HORMONE) ([id number])Indication: Acquired hypothyroidism On: : Request Metabolic Panel, Basic (22306)Indication: Hyponatremia On: :00 Request TSH (84604)Indication: Diabetes mellitus type II, controlled On: :48 Request Vitamin B-12 (cyanocobalamin) (56044)Indication: B12 deficiency On: :45 Request CBC WITH MANUAL DIFF ([id number])Indication: B12 deficiency On: :45 Request T3, FREE (TRIDOTHYRONINE) (84174)Indication: Thyroid nodule On: :48 Request Comments: add to labs already drawn T4, FREE (THYROXINE) ([id number])Indication: Thyroid nodule On: :47 Request Comments: add to labs already drawn Digoxin (98074)Indication: Cardiomyopathy On: :44 Request LIPID PANEL (44094)Indication: Mixed hyperlipidemia On: :43 Request TSH (15054)Indication: Acquired hypothyroidism On: :43 Request Vitamin D Hydroxy (02260)Indication: Vitamin D deficiency On: :43 Request [id number] (91548)Indication: Fatty liver On: :42 Request VITAMIN B-12 (CYANOCOBALAMIN) (09166)Indication: Fatigue On: :42 Request URINALYSIS, W/ MICRO (04292)Indication: Diabetes mellitus type II, controlled On: 04-Jgf-621452:30 Request MICROALBUMIN: CREATININE RATIO (44707) AND (30584)Indication: Diabetes mellitus type II, controlled On: :29 Request CBC with auto diff (65314)Indication: Diabetes mellitus type II, controlled On: 80-Hzl-776514:29 Request METABOLIC PANEL, COMPREHENSIVE (24754)Indication: Diabetes mellitus type II, controlled On: 11-Ctj-844952:29 Request HGB A1C ([id number])Indication: Diabetes mellitus type II, controlled On: 71-Thi-556626:29 Request HEPATIC FUNCTION PANEL ([id number])Indication: Elevated liver enzymes On: 5-Noa-461725:38 Request Comments: do in hospital tuesday when get US Metabolic Panel, Comprehensive ([id number])Indication: Epigastric pain On: 42-Yzd-963746:54 Request Sed Rate Erythrocyte (60535)Indication: Epigastric pain On: :54 Request CBC, Platelets & Auto Diff ([id number])Indication: Epigastric pain On: :54 Request OVA & PARASITE DIR SMEAR (08533)Indication: Diarrhea On: 97-Gns-038874:53 Request OCCULT BLOOD FECES SCREEN ([id number])Indication: Diarrhea On: :53 Request LEUKOCYTE COUNT, FECAL ([id number])Indication: Diarrhea On: 14-Yeu-987516:53 Request C-DIFFICILE, STOOL ([id number])Indication: Diarrhea On: :53 Request GENESIS CULTURE-STOOL (43697)Indication: Diarrhea On: 55-Yri-142665:53 Request Magnesium (31825)Indication: Fatigue On: 61-Ujp-397138:42 Request Vitamin B-12 (cyanocobalamin) (54098)Indication: Fatigue On: 44-Lih-460273:41 Request MICROALBUMIN: CREATININE RATIO (45564) AND ([id number])Indication: Diabetes mellitus type II, controlled On: 88-Vlj-154570:40 Request LIPID PANEL (31917)Indication: Mixed hyperlipidemia On: 40-Mje-920880:39 Request CBC W/AUTO DIFF WBC ([id number])Indication: Fatty liver On: 30-Vtf-824446:30 Request METABOLIC PANEL, COMPREHENSIVE (01885)Indication: Fatty liver On: 90-Jlv-640527:30 Request Vitamin D Hydroxy (48501)Indication: Vitamin D deficiency On: 51-Wxx-833068:30 Request TSH ([id number])Indication: Acquired hypothyroidism On: 57-Zjf-932837:30 Request Digoxin ([id number])Indication: Cardiomyopathy On: 69-Vze-776667:29 Request LIPASE ([id number])Indication: Epigastric pain On: :28 Request AMYLASE ([id number])Indication: Epigastric pain On: :28 Request URINE GENESIS CULTURE-IDENTIFICATN (24544)Indication: Leukocytes in urine On: 91-Ypq-402109:38 Request MICROALBUMIN: CREATININE RATIO ([id number]) AND (08927)Indication: Essential hypertension with goal blood pressure less than 130/80 On: :58 Request CBC W/AUTO DIFF WBC ([id number])Indication: Essential hypertension with goal blood pressure less than 130/80 On: :58 Request METABOLIC PANEL, COMPREHENSIVE (79620)Indication: Essential hypertension with goal blood pressure less than 130/80 On: :58 Request DGOVY-ABQGBVAIMRC-ZLTNR ([id number])Indication: Abnormal tumor markers On: :57 Request Vitamin D Hydroxy (09697)Indication: Vitamin D deficiency On: :09 Request LIPOPROTEIN, BLD, BY NMR ([id number])Indication: Mixed hyperlipidemia On: :09 Request CBC W/AUTO DIFF WBC ([id number])Indication: Diabetes mellitus type II, controlled On: :09 Request METABOLIC PANEL, COMPREHENSIVE ([id number])Indication: Diabetes mellitus type II, controlled On: :09 Request Potassium Serum (73084)Indication: Hypopotassemia On: :02 Request DZDOL-[id number]-EUHSH ([id number])Indication: Fatty liver On: :57 Request MICROALBUMIN: CREATININE RATIO (43397) AND ([id number])Indication: Essential hypertension with goal blood pressure less than 130/80 On: :45 Request CBC W/AUTO DIFF WBC ([id number])Indication: Essential hypertension with goal blood pressure less than 130/80 On: :45 Request METABOLIC PANEL, COMPREHENSIVE (82636)Indication: Essential hypertension with goal blood pressure less than 130/80 On: :45 Request Vitamin D Hydroxy (83808)Indication: Vitamin D deficiency On: :45 Request TSH ([id number])Indication: Acquired hypothyroidism On: :45 Request LIPID PANEL (87990)Indication: Mixed hyperlipidemia On: :45 Request CBC W/AUTO DIFF WBC (44047)Indication: Diabetes mellitus type II, controlled On: :28 Request ZXHZS-[id number] ([id number])Indication: Fatty liver On: : Request METABOLIC PANEL, COMPREHENSIVE (21476)Indication: Mixed hyperlipidemia On: : Request LIPOPROTEIN, BLD, BY NMR ([id number])Indication: Mixed hyperlipidemia On: : Request Metabolic Panel, Basic (39961)Indication: Hypopotassemia On: :55 Request Comments: 10 days CBC (AUTO) ([id number])Indication: Uncontrolled type II diabetes mellitus On: : Request Vitamin D Hydroxy (74935)Indication: Vitamin D deficiency On: 36-Nbc-688553:03 Request MICROALBUMIN: CREATININE RATIO (49695) AND ([id number])Indication: Uncontrolled type II diabetes mellitus On: :02 Request METABOLIC PANEL, COMPREHENSIVE (26552)Indication: Essential hypertension with goal blood pressure less than 130/80 On: 86-Dcz-162578:02 Request TJCPY-LETCJTVSLRR-FOKGY ([id number])Indication: Fatty liver On: : Request LIPID PANEL (86879)Indication: Mixed hyperlipidemia On: : Request TSH (97009)Indication: Thyroid nodule On: : Request CBC W/AUTO DIFF WBC ([id number])Indication: Uncontrolled type II diabetes mellitus On: :47 Request METABOLIC PANEL, COMPREHENSIVE ([id number])Indication: Uncontrolled type II diabetes mellitus On: :47 Request LIPID PANEL ([id number])Indication: Mixed hyperlipidemia On: :47 Request Vitamin D Hydroxy (00813)Indication: Vitamin D deficiency On: :47 Request KFLGG-ECRLABSEVRY-ZUBAK ([id number])Indication: Fatty liver On: : Request CBC W/AUTO DIFF WBC (84912)Indication: Uncontrolled type II diabetes mellitus On: :26 Request LIPID PANEL (40610)Indication: Mixed hyperlipidemia On: : Request MICROALBUMIN: CREATININE RATIO (96966) AND ([id number])Indication: Uncontrolled type II diabetes mellitus On: : Request TSH ([id number])Indication: Acquired hypothyroidism On: : Request METABOLIC PANEL, COMPREHENSIVE (33069)Indication: Essential hypertension with goal blood pressure less than 130/80 On: : Request Vitamin D Hydroxy (92346)Indication: Vitamin D deficiency On: : Request CALCIFEDIOL (83987)Indication: Vitamin D deficiency On: 77-Rvo-571683:44 Request Comments: to be done Jun 2015 after done with ergocalciferol URINE GENESIS CULTURE (NITA COL COUNT) ([id number])Indication: UTI (lower urinary tract infection) On: 0-Tcu-271244:22 Request LIPID PANEL ([id number])Indication: Mixed hyperlipidemia On: 5-Ghk-858323:15 Request CBC W/AUTO DIFF WBC ([id number])Indication: Uncontrolled type II diabetes mellitus On: 5-Ixs-465476:14 Request METABOLIC PANEL, COMPREHENSIVE (53958)Indication: Uncontrolled type II diabetes mellitus On: 3-Pqy-272126:14 Request TSH ([id number])Indication: Acquired hypothyroidism On: 6-Pdi-530227:14 Request ZEGKZ-[id number] ([id number])Indication: Fatty liver On: 1-Wli-359196:14 Request CBC, Platelets & Auto Diff ([id number])Indication: HX, PERSONAL, MALIGNANCY, LYMPHATIC NEC On: 75-Fzp-14708:07 Request CBC WITH MANUAL DIFF (58790)Indication: Abnormal glucose tolerance test On: :33 Request MICROALBUMIN: CREATININE RATIO (40514) AND ([id number])Indication: Abnormal glucose tolerance test On: :33 Request LIPID PANEL ([id number])Indication: Mixed hyperlipidemia On: :31 Request METABOLIC PANEL, COMPREHENSIVE (49109)Indication: Abnormal glucose tolerance test On: :31 Request URINE GENESIS CULTURE-NITA COL COUNT ([id number])Indication: Dysuria On: 58-Kty-322062:03 Request RETICULOCYTE COUNT ([id number])Indication: Anemia On: :37 Request Iron (85856)Indication: Anemia On: :37 Request Ferritin (42520)Indication: Anemia On: :37 Request CBC (Auto) ([id number])Indication: Anemia On: :37 Request CBC, Platelets & Auto Diff (97388)Indication: Fever On: :03 Request Metabolic Panel, Comprehensive ([id number])Indication: Fever On: :03 Request HgA1C , Office (50847)Indication: Abnormal glucose tolerance test On: :55 Request CBC WITH MANUAL DIFF ([id number])Indication: Abnormal glucose tolerance test On: :53 Request METABOLIC PANEL, COMPREHENSIVE ([id number])Indication: Abnormal glucose tolerance test On: :53 Request LIPID PANEL ([id number])Indication: Mixed hyperlipidemia On: :53 Request WZDIO-PEQIPFMSAPC-EGRBJ ([id number])Indication: Fatty liver On: 23-Twt-092217:53 Request PTT (Activated Partial Thromboplastin Time) ([id number])Indication: Fatty liver On: :53 Request PT (Prothrobim Time) (50656)Indication: Fatty liver On: 67-Qrh-045996:53 Request MICROALBUMIN: CREATININE RATIO (11592) AND ([id number])Indication: Abnormal glucose tolerance test On: 24-Jmb-569093:49 Request Anti-TPO Antibody (01289)Indication: Acquired hypothyroidism On: :14 Request Comments: 1 month TSH (62908)Indication: Acquired hypothyroidism On: 25-Eni-962467:13 Request Comments: 1 month T4, FREE (THYROXINE) (49574)Indication: Acquired hypothyroidism On: :13 Request Comments: 1 month T3, FREE (TRIDOTHYRONINE) (82281)Indication: Acquired hypothyroidism On: 91-Kgf-935465:13 Request Comments: 1 month CBC WITH MANUAL DIFF ([id number])Indication: Abnormal glucose tolerance test On: :38 Request METABOLIC PANEL, COMPREHENSIVE (63227)Indication: Abnormal glucose tolerance test On: :38 Request LIPID PANEL (36152)Indication: Mixed hyperlipidemia On: :38 Request MICROALBUMIN: CREATININE RATIO (68507) AND ([id number])Indication: Abnormal glucose tolerance test On: 62-Hhs-962004:56 Request CBC WITH MANUAL DIFF ([id number])Indication: Elevated LFTs On: 76-Aih-996184:56 Request METABOLIC PANEL, COMPREHENSIVE ([id number])Indication: Elevated LFTs On: 75-Iaf-336802:56 Request LIPID PANEL ([id number])Indication: Mixed hyperlipidemia On: 71-Zaj-698694:56 Request TSH ([id number])Indication: Acquired hypothyroidism On: :56 Request CBC WITH MANUAL DIFF ([id number])Indication: Essential hypertension with goal blood pressure less than 130/80 On: :34 Request TSH ([id number])Indication: Acquired hypothyroidism On: :34 Request METABOLIC PANEL, COMPREHENSIVE (08885)Indication: Fatty liver On: :33 Request LIPID PANEL ([id number])Indication: Mixed hyperlipidemia On: 04-Oct-20119:33 Request MICROALBUMIN: CREATININE RATIO (97055) AND ([id number])Indication: Uncontrolled type II diabetes mellitus On: :46 Request TSH (07556)Indication: Acquired hypothyroidism On: :46 Request LIPID PANEL ([id number])Indication: Mixed hyperlipidemia On: :45 Request METABOLIC PANEL, COMPREHENSIVE ([id number])Indication: Elevated LFTs On: :45 Request HgA1C , Office (02854)Indication: Uncontrolled type II diabetes mellitus On: :28 Request URINE GENESIS CULTURE-NITA COL COUNT (40187)Indication: Cystitis, acute On: :43 Request URINE GENESIS CULTURE-IDENTIFICATN (06898)Indication: Dysuria On: :10 Request CBC WITH MANUAL DIFF ([id number])Indication: Headache On: :56 Request METABOLIC PANEL, COMPREHENSIVE (92574)Indication: Headache On: :56 Request LIPID PANEL ([id number])Indication: Mixed hyperlipidemia On: :56 Request TSH ([id number])Indication: Acquired hypothyroidism On: 66-Azr-141526:56 Request METABOLIC PANEL, COMPREHENSIVE (70194)Indication: Uncontrolled type II diabetes mellitus On: :28 Request HEPATIC FUNCTION PANEL ([id number])Indication: Mixed hyperlipidemia On: :28 Request LIPID PANEL ([id number])Indication: Mixed hyperlipidemia On: :28 Request LIPID PANEL (31497)Indication: Mixed hyperlipidemia On: :39 Request MICROALBUMIN: CREATININE RATIO (99622) AND ([id number])Indication: Uncontrolled type II diabetes mellitus On: :39 Request CBC WITH MANUAL DIFF ([id number])Indication: Essential hypertension with goal blood pressure less than 130/80 On: :39 Request METABOLIC PANEL, COMPREHENSIVE (00701)Indication: Elevated LFTs On: :39 Request TSH ([id number])Indication: Acquired hypothyroidism On: :36 Request TSH ([id number])Indication: Thyroid nodule On: 30-Cms-694790:20 Request METABOLIC PANEL, COMPREHENSIVE ([id number])Indication: Elevated LFTs On: :19 Request LIPID PANEL ([id number])Indication: Mixed hyperlipidemia On: :19 Request C-REACTIVE PROTEIN ([id number])Indication: Abnormal findings on diagnostic imaging of other specified body structures On: 49-Qsw-344645:02 Request SED RATE ERYTHROCYTE ([id number])Indication: Abnormal findings on diagnostic imaging of other specified body structures On: 07-Ile-097416: Request LDH (LD) (LACTATE DEHYDROGENASE) (65457)Indication: Abnormal findings on diagnostic imaging of other specified body structures On: 54-Clj-648677: Request Urine Protein Electrophoresis (UPEP) (78609)Indication: Abnormal findings on diagnostic imaging of other specified body structures On: 11-Nhg-576754: Request Serum Protein Electrophoresis (SPEP) (73661)Indication: Abnormal findings on diagnostic imaging of other specified body structures On: 03-Xam-680409: Request METABOLIC PANEL, COMPREHENSIVE ([id number])Indication: Diabetes mellitus type II, controlled On: :19 Request LIPID PANEL ([id number])Indication: Mixed hyperlipidemia On: :19 Request URINE GENESIS CULTURE-NITA COL COUNT (01542)Indication: Dysuria On: 68-Vhm-197229:58 Request HEPATIC FUNCTION PANEL ([id number])Indication: Elevated LFTs On: :18 Request LIPID PANEL ([id number])Indication: Mixed hyperlipidemia On: 57-Lwc-853280:17 Request MICROALBUMIN: CREATININE RATIO (72051) AND ([id number])Indication: Uncontrolled type II diabetes mellitus On: :47 Request CBC WITH MANUAL DIFF ([id number])Indication: Uncontrolled type II diabetes mellitus On: 2-Nzx-109865:47 Request METABOLIC PANEL, COMPREHENSIVE (54483)Indication: Uncontrolled type II diabetes mellitus On: :47 Request HEPATIC FUNCTION PANEL ([id number])Indication: Elevated LFTs On: 0-Wwd-167553:45 Request LIPID PANEL ([id number])Indication: Mixed hyperlipidemia On: 8-Yje-190011:44 Request HEPATIC FUNCTION PANEL ([id number])Indication: Fatty liver On: 2-Nmm-766560:30 Request LIPID PANEL ([id number])Indication: Mixed hyperlipidemia On: 3-Cpw-536903:30 Request URINE GENESIS CULTURE (NITA COL COUNT) ([id number])Indication: Low back pain potentially associated with radiculopathy On: 69-Rio-388135:03 Request MICROALBUMIN: CREATININE RATIO ([id number]) AND ([id number])Indication: Dysuria On: 53-Egs-159221:05 Request LIPID PANEL ([id number])Indication: Dysuria On: 93-Iau-231484:05 Request TSH ([id number])Indication: Dysuria On: 33-Mgo-525905:05 Request METABOLIC PANEL, COMPREHENSIVE (81891)Indication: Dysuria On: 69-Vis-036736:04 Request CBC WITH MANUAL DIFF ([id number])Indication: Dysuria On: 29-Ysr-763934:04 Request URINE GENESIS CULTURE-NITA COL COUNT ([id number])Indication: Dysuria On: 81-Oom-655118:45 Request URINE GENESIS CULTURE (NITA COL COUNT) ([id number])Indication: Dysuria On: 48-Mto-705366:17 Request METABOLIC PANEL, COMPREHENSIVE ([id number])Indication: Fatty liver On: 72-Bvn-86510:58 Request Magnesium (42302)Indication: Palpitations On: :51 Request TSH ([id number])Indication: Palpitations On: 39-Kav-77133:51 Request METABOLIC PANEL, COMPREHENSIVE (45641)Indication: Palpitations On: :51 Request CBC WITH MANUAL DIFF ([id number])Indication: Palpitations On: 55-Bzm-76013:51 Request GGT (Gamma Glutamyl Transferase) ([id number])Indication: Elevated LFTs On: 23-Dwk-663395:16 Request HEPATIC FUNCTION PANEL ([id number])Indication: Elevated LFTs On: 00-Bxt-973883:16 Request VITAMIN B-12 (CYANOCOBALAMIN) ([id number])Indication: Fatigue On: :23 Request MICROALBUMIN URINE QUANT ([id number])Indication: Diabetes mellitus type II, controlled On: 68-Voh-41407:22 Request TSH ([id number])Indication: Fatigue On: 91-Bzk-44007:22 Request CBC WITH MANUAL DIFF ([id number])Indication: Diabetes mellitus type II, controlled On: 68-Ued-10060:22 Request METABOLIC PANEL, COMPREHENSIVE (03537)Indication: Diabetes mellitus type II, controlled On: 82-Gmi-68619:22 Request LIPID PANEL ([id number])Indication: Mixed hyperlipidemia On: 15-Dud-61111:22 Request HEPATIC FUNCTION PANEL (07271)Indication: Mixed hyperlipidemia On: 68-Fqv-311935:48 Request LIPID PANEL ([id number])Indication: Mixed hyperlipidemia On: 51-Moo-897540:48 Request Comments: in 3 mos Planned Encounters Medical; [facility] 1 Month FU - On: 30-Aug-2018 11:00 [facility] Fast DO, Sangeetha A Fast DO, Sangeetha A Planned Procedures Flu Vaccine (Quadrivalent) 71218Tu: On: 21-Jul-2018 Intent Fast DO, Sangeetha A Fast DO, Sangeetha A SCREENING DIGITAL TOMOSYNTHESIS OF On: 21-Jul-2018 Intent BREAST ([id number])By: Fast DO, Sangeetha A Fast DO, Sangeetha A B 12 Injection, 1000 mcg (J3420)By: On: 31-May-2018 Intent Fast DO, Sangeetha A Fast DO, Sangeetha A Comments: Lot#[id number] EXP:[id number] given:left deltoid Given By: clarita albright ABN signed CT - Abdomen (IV Contrast Needed)By: On: 31-May-2018 Intent Fast DO, Sangeetha A Fast DO, Sangeetha A Doppler Ultrasound OtherBy: Fast DO, On: 19-May-2018 Intent Sangeetha A Fast DO, Sangeetha A Comments: left arm ULTRASOUND OF LIVER ([id number])By: On: 24-Feb-2018 Intent Jennifer Rios MD PFT - CompleteBy: Fast DO, Sangeetha A On: 21-Oct-2017 Intent Fast DO, Sangeetha A Comments: at [facility] SCREENING DIGITAL TOMOSYNTHESIS OF On: 21-Oct-2017 Intent BREAST ([id number])By: Fast DO, Sangeetha A Comments: end of oct Fast DO, Sangeetha A EsophagramBy: Fast DO, Sangeetha A Fast On: 21-Oct-2017 Intent DO, Sangeetha A Comments: with 12 mm tablet ELECTROCARDIOGRAM, COMPLETE (ECG) On: 21-Oct-2017 Intent ([id number])By: Fast DO, Sangeetha A Fast DO, Sangeetha A Flu Vaccine (Quadrivalent) 86750Nf: On: 07-Jun-2017 Intent Fast DO, Sangeetha A [...] DO, Sangeetha A DEXA SCAN AXIAL SKELETON (97482)By: On: 16-Aug-2016 Intent Fast DO, Sangeetha A Fast DO, Sangeetha A MAMMOGRAM, SCREENING, BOTH BREAST On: 16-Aug-2016 Intent (65262)By: Fast DO, Sangeetha A Fast DO, Sangeetha A ELECTROCARDIOGRAM, COMPLETE (ECG) On: 16-Aug-2016 Intent ([id number])By: Fast DO, Sangeetha A Fast DO, Sangeetha A Flu Vaccine (Quadrivalent) 45584Aa: On: 16-Aug-2016 Intent Fast DO, Sangeetha A Fast DO, Sangeetha A Comments: FLUlot: [id number]/09site:Lt deltoidroute:IMdose:.5mlHEIDI MCLEOD ADMINISTRATION OF INFLUENZA VIRUS On: 16-Aug-2016 Intent VACCINE (G0008)By: Fast DO, Sangeetha A Fast DO, Sangeetha A Ultrasound - ThyroidBy: Fast DO, On: 10-Nov-2015 Intent Sangeetha A Fast DO, Sangeetha A Ultrasound - LiverBy: Fast DO, Sangeetha On: 10-Nov-2015 Intent A Fast DO, Sangeetha A Flu Vaccine (Quadrivalent) 36780Hz: On: 08-Aug-2015 Intent Fast DO, Sangeetha A Fast DO, Sangeetha A Comments: Lot #[id number]-L dltd, IMDose prefilled syringegiven by:SIMONE Jasso and ABN signed MAMMOGRAM, SCREENING, BOTH BREAST On: 08-Aug-2015 Intent (45942)By: Fast DO, Sangeetha A Fast DO, Sangeetha A Ultrasound - ThyroidBy: Fast DO, On: 08-Aug-2015 Intent Sangeetha A Fast DO, Sangeetha A Ultrasound - LiverBy: Fast DO, Sangeetha On: 08-Aug-2015 Intent A Fast DO, Sangeetha A ADMINISTRATION OF PNEUMOCOCCAL On: 01-Nov-2014 Intent VACCINE (G0009)By: Fast DO, Sangeetha A Fast DO, Sangeetha A PNEUM VAC ADLT/IMUMNOSPR, SBC/INTRM On: 01-Nov-2014 Intent (78921)By: Fast DO, Sangeetha A Fast DO, Comments: Lot:[id number]:02/29/16Dose:0.5mgRoute:imSite:l armGiven By:BATSHEVA signed Sangeetha A Ultrasound - LiverBy: Fast DO, Sangeetha On: 05-Jul-2014 Intent A Fast DO, Sangeetha A BILATERAL MAMMOGRAMS (61415)By: Fast On: 05-Jul-2014 Intent DO, Sangeetha A Fast DO, Sangeetha A Ultrasound - ThyroidBy: Fast DO, On: 05-Jul-2014 Intent Sangeetha A Fast DO, Sangeetha A ADMINISTRATION OF INFLUENZA VIRUS On: 05-Jul-2014 Intent VACCINE (G0008)By: Fast DO, Sangeetha A Comments: Influenzalot:[id number]:03/25/2015dose:0.5mLRoute: IMlocation:R armgiven by:marika Fast DO, Sangeetha A FLU VAC, SPLIT, >3 YEARS, INTRAMUSC On: 05-Jul-2014 Intent (16565)By: Arpan Irvin DOa A Fast DO, Sangeetha A INFUSION, NORMAL SALINE SOLUTION , On: 15-Apr-2014 Intent 250 CC (J7050)By: Angelina Winn CNP Rocephon Injection, 1 Gm (J0696)By: On: 15-Apr-2014 Intent Angelina Winn CNP Comments: Rocephin 1gmLot #[id number]. [id number] in R hand x 1 stick with [...] SPLIT, >3 YEARS, INTRAMUSC On: 27-Jul-2013 Intent (97297)By: Tavon DAVIS, Sangeetha A Fast DO, Sangeetha A Eprescribed prescriptions (G8553)By: On: 04-Jun-2013 Intent eDlisa Melendez LPN SPECIMEN HANDLING/TRANSPORT On: 04-Jun-2013 Intent (86637)By: Delisa Melendez LPN INFUSION, NORMAL SALINE SOLUTION , On: 15-Feb-2013 Intent 1000 CC (Special Coverage Comments: 500 cc Instructions Apply. See MCM: 2049) (J7030)By: Jennifer Rios MD HYDRATION IV INFUSION, INIT On: 15-Feb-2013 Intent (93450)By: Jennifer Rios MD Ultrasound - ThyroidBy: Fast DO, On: 19-Jan-2013 Intent Sangeetha A Fast DO, Sangeetha A MAMMOGRAM, SCREENING, BOTH BREASTS On: 19-Jan-2013 Intent (58453)By: Fast DO, Sangeetha A Fast DO, Comments: due in january Sangeetha A Eprescribed prescriptions (G8553)By: On: 19-Jan-2013 Intent Isabella Grigsby Pulse Oximetry (53997)By: Seb, On: 29-Sep-2012 Intent Isabella Comments: 98% [...] MAMMOGRAM, SCREENING, BOTH BREASTS On: 24-Jan-2012 Intent (83038)By: Fast DO, Sangeetha A Fast DO, Sangeetha A TDAP VACCINE >7 IM (61117)By: Fast On: 04-Oct-2011 Intent DO, Sangeetha A Fast DO, Sangeetha A Comments: Lot:[id number]:08/12/13Amt:prefilledRoute:IMSite:right deltGiven By: NATALEE Spence Aerosol Treatment (40985)By: Blanca On: 26-Aug-2011 Intent Jennifer KING Pulse Oximetry (27319)By: Blanca On: 26-Aug-2011 Intent Jennifer KING SPECIMEN HANDLING/TRANSPORT On: 23-Jul-2011 Intent (38056)By: Delisa Melendez LPN VAC, SPLIT, >3 YEARS, INTRAMUSC On: 05-Jul-2011 Intent (45670)By: Isabella Grigsby Comments: Lot #[id number]-7/20/12Site-left deltoidgiven by: Lisa Bello LPN Ultrasound - ThyroidBy: Fast DO, On: 05-Jul-2011 Intent Sangeetha A Fast DO, Sangeetha A MAMMOGRAM, SCREENING, BOTH BREASTS On: 05-Jul-2011 Intent (35042)By: Fast DO, Sangeetha A Fast DO, Sangeetha A ADMINISTRATION OF INFLUENZA VIRUS On: 05-Jul-2011 Intent VACCINE (G0008)By: Isabella Grigsbycribed prescriptions (G8553)By: On: 04-Jun-[address] CT - Brain/HeadBy: Fast DO, Sangeetha A On: 07-Oct-2010 Intent Fast DO, Sangeetha A Comments: with and without contrast MAMMOGRAM, SCREENING, BOTH BREASTS On: 26-Jun-2010 Intent (50998)By: Fast DO, Sangeetha A Fast DO, Sangeetha A ADMINISTRATION OF INFLUENZA VIRUS On: 26-Jun-2010 Intent VACCINE (G0008)By: Fast DO, Sangeetha A Fast DO, Sangeetha A FLU VAC, SPLIT, >3 YEARS, INTRAMUSC On: 26-Jun-2010 Intent (31206)By: Fast DO, Sangeetha A Fast DO, Comments: Lot:[id number] 4PExp:12/2010Dose:0.5mlRoute:IMSite:Left DeltoidGiven by: HEIDI Alberto A Ultrasound - ThyroidBy: Fast DO, On: 07-Jan-2010 Intent Sangeetha A Fast DO, Sangeetha A CT - Spine/CervicalBy: Fast DO, On: 15-Dec-2009 Intent Sangeetha A Fast DO, Sangeetha A Comments: 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 -- need to rule out Pulse Oximetry (20161)By: Fast DO, On: 09-Jul-2009 Intent Sangeetha A Fast DO, Sangeetha A Spirometry (18151)By: Fast DO, On: 10-Jul-2009 Intent Sangeetha A Fast DO, Sangeetha A Comments: good effort and curve- mild restriciton Radiology - Chest- PA and LatBy: On: 09-Jul-2009 Intent Fast DO, Sangeetha A Fast DO, Sangeetha A Pulse Oximetry (76587)By: Fast DO, On: 10-Jul-2009 Intent Sangeetha A Fast DO, Sangeetha A Comments: 98 FLU VAC, SPLIT, >3 YEARS, INTRAMUSC On: 09-Jul-2009 Intent (72984)By: Isabella Grigsby Comments: Lot #[id number]-7/2010Site-right deltoidDose0.5mlgiven by Juventino Nye LPN IMMUNIZ ADMNIN, 1 VAC, SNGL/COMBO On: 09-Jul-2009 Intent (81380)By: Isabella Grigsby EKG (52922)By: Fast DO, Sangeetha A On: 10-Oct-2008 Intent [...] ADMNIN, 1 VAC, SNGL/COMBO On: 10-Jul-2008 Intent (38932)By: Fast DO, Sangeetha A Fast DO, Sangeetha A FLU VAC, SPLIT, >3 YEARS, INTRAMUSC On: 10-Jul-2008 Intent (31312)By: Fast DO, Sangeetha A Fast DO, Comments: injection given in left deltoid, pt tolerated welllot # [id number] Sangeetha A Holter Monitor 24 hrsBy: Fast DO, On: 10-Jul-2008 Intent Sangeetha A Fast DO, Sangeetha A EKG (49509)By: Marlene Reddy On: 10-Jul-2008 Intent Comments: ekg [...] using tylenol and will go back to [place] if need be for shot-sugar fine-n foot [...] off metformin and lisinopril andthen went to [place] for couple weeks then had multiple falls sent back to hospital and transferred to [facility] there for few weeks then to [facility] had lots of pt- and doing [...] Patient has been compliant with instructions. Current oh End: 01-Mar-2017 9:26 dication use: no side [...] previously evaluated by a primary physician (at [facility]- Dr Reyes ). Presentation included lid swelling.Encounter [...] is helping her mood- has followup in [place] may 04 - her weight down 20 [...] sees heart failure doctor next week at [facility] - -- mood ebs and flows- [...] all the problems -goes back to [facility] on tuesday and psych in 2 weeksEncounter [...] or less). 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
--- OUTSIDE RECORDS SUMMARY | 2018-10-21 23:51 | XMS RPT_ITS | Continuity of Care Document ---
:1965 Author Organization [facility] Address [facility] [address] [place] [address] Phone Care Team Providers Name Role Phone [...] Quantity: 60 {Tablet} Refills: 3 Ordered:19-May-2018 Long PRODUCT LINE MANAGER, Amelia L Start : 21-Oct-2017 End : [...] days Quantity: 1 {pen} Refills: 3 Ordered:04-Jun-2011 Ingrdi Newton LPN Start : 28-Sep-2010 End : [...] : 05-Jun-2018 End : 05-Jul-2018 Inactive ERGOCALCIFEROL, 74510RRRS (Oral Capsule) 1 (one) Capsule Capsule twice [...] : 23-Jul-2011 End : 02-Aug-2011 Inactive MAXITROL, 3.5-42988-2.1 (Ophthalmic Ointment) apply to eye lids as [...] hs (50 MG) Inactive Comments:Dr. Hankins NYSTATIN, 431127DOJO/ML (Mouth/Throat Suspension) 5cc Suspension 5 times daily [...] Quantity: 30 {Tablet} Refills: 0 Ordered:19-May-2018 Long PRODUCT LINE MANAGER, Amelia L Start : 12-May-2012 End : 19-May-2018 Discontinued Comments:This order discontinued per [facility]. ZOFRAN ODT, 4MG (Oral Tablet Dispersible) qd prn nausea (4 MG) End : 08-Aug-2015 Discontinued Comments:[facility] Allergies and Adverse Reactions Name [...] and Lateral Result: Comments: See Note; NOTES: [facility] Imaging Services [address] [place] [address] Chest PA and Lateral MR#: [id number] Acct: [id number] Name: IFEOMA ASHRAF Rep #: [id number] : 1965 F 53 From: Dimitris Valderrama DO PCP: Sangeetha Irvin DO Status: REG CLI Study: Chest PA and Lateral Date of Exam: 07/14/18 Exam# [id number] Ordering Dr: Oscar Todd PLANT OPERATIONS VICE PRESIDENT-C STUDY: X-RAY CHEST REASON FOR EXAM: Female, [...] Dimitris Valderrama DO at 8:47 EDT Tel [phone], Service support , CC: NUNU Todd; Sangeetha Irvin DO Drag Out Man: Signed 10-Jun-2018 Pacemaker Check Result: Comments: See Note; NOTES: [facility] [address] [place] [address] Pacemaker Check Date of Service: 06/09/18 09 MR#: [id number] Acct: [id number] Name: IFEOMA ASHRAF Rep #: [id number] : 1965 From: Danica Pickering Age/Sex: 53/F Location: [facility] Status: Signed Billing Codes ICD Device Billing: ICD Dev Prog Eval, Single 06/09/18 09 <Elec tronically signed by Danica Pickering > Date Danica Pickering 06/10/18 1406<Electronically signed by Boone hC MD> Cosigner Signat ure: Date (if applicable) Boone Ch MD CC: 08-Jun-2018 Cardiology Visit Report Result: Comments: See Note; NOTES: [facility] [address] [place] [address] OFFICE VISIT Date of Service: 05/31/18 MR#: [id number] Acct: [id number] Name: IFEOMA ASHRAF Rep #: [id number] : 1965 Provider: NUNU Todd Age/Sex: 53/F Location: [facility] Status: Signed with Addenda ADDENDUM by NUNU Todd on 06/01/18 at 0746 Addendum entered and electronic ally signed by LUPE Black 06/01/18 07:46: Patient's outside records from [facility] admission from 04/07/2018 to 04/27/2018 were [...] ultimately discharged home with requested follow-up with [facility] neurology or local neurolo gist in [...] defibrillator (ICD) Z95.810 Generator change 11/13 @ [facility] LUPE Chapman Pacemaker check in [...] prior to saving. Follow Up 6 Months (CERTIFIED HEALTH EDUCATION SPECIALIST) 05/31/18 (GIUSEPPE) 06/01/18 0747 <Electronically signed [...] ral regurgitation and tricuspid regurgitation. She presented [facility] on March 08, 2018 after being found unresponsive in her bathroom. During this hospitalization she was found to have an acute left axillary and left brachial vein DVT and was started on Eliquis. She presented to [facility] emergency department in March 2018 for altered mental status. Her CT scan prior to ER visit showed possible hygroma versus subacute resolving subdural hematoma. She was transferred to [facility] for further evaluation. These records are [...] Rate 100 Intake Visit Reasons: [facility] to [facility] to [facility] to [place] Allergies amitriptyline Adverse Reaction (Severe, Verified 05/31/18 [...] meq PO DAILY #30 tab 05/31/18 [Rx] COUNT INCLUDES THE [facility] Medical History Nonrheumatic mitral (valve) insufficiency [...] rter-defibrillator (ICD) Z95.810 Generator change 11/13 @ [facility] LUPE Chapman Pacemaker check in [...] prior to saving. Follow Up 6 Months (CERTIFIED HEALTH EDUCATION SPECIALIST) 05/31/18 (GIUSEPPE) Coding Level of Care [...] 1556 <Electronically signed by Oscar ANDRADE> Date [facility] Peyton griffin Signature: Date (if applicable) CC: Sangeetha Irvin DO 05-Jun-2018 Oncology Visit Report Result: Comments: See Note; NOTES: [facility] [address] 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 She had [...] transplant in February 2007 at [facility] with complete remission. She is on [...] Chronic Code Visit Office Visits / Consults: 28147 OV L3 Est 1325 <Electronically signed by Simeon Gresham MD> Date Simeon Pacheco Signature: Date (if applicable) CC: 26-May-2018 Venous Duplex Upper Extremity Result: Comments: See Note; NOTES: [facility] Cardiovascular Services [address] [place] [address] Venous Duplex US, Unilateral 05/25/18 0903 MR#: [id number] Acct: [id number] Name: IFEOMA SILVA Rep #: [id number] : 1965 53 From: Juanjo Russo MD [...] Dictated: 05/25/18 0903 Date Transcribed: 05/26/18 163 Drag Out Man: Signed 06-Apr-2018 Chest 1 View (Portable) Result: Comments: See Note; NOTES: [facility] Imaging Services [address] [place] [address] Chest 1 View (Portable) MR#: [id number] Acct: [id number] Name: MARIOWAQASIFEOMA Ashok Rep #: : 1965 F 53 From: Levy Lucas DO PCP: Sangeetha Irvin DO Status: PRE ER Study: Chest 1 View (Portable) Date of Exam: 04/06/18 Exam# [id number] Ordering Dr: Dejuan Bacon MD STUDY: X-RAY [...] , CC: Sangeetha Irvin DO; Dejuan Bacon Drag Out Man: Signed 05-Apr-2018 Brain/Head without Contrast Result: Comments: See Note; NOTES: [facility] Imaging Services [address] [place] [address] Brain/Head without Contrast MR#: [id number] Acct: [id number] Name: IFEOMA ASHRAF Rep # : [id number] : 1965 F 53 From: Levy Lucas DO PCP: Sangeetha Irvin DO Status: REG CLI Study: Brain/Head without Contrast Date of Exam: 04/05/18 Exam# [id number] Ordering Dr: Oscar Bartlett MD STUDY : [...] 14:06 EDT Tel , Service support [phone]- [phone], N.B. : The above information has been verbally conveyed by Levy Lucas DO to connected , Covering Physician, on 04/05/2018 14:06:03 (ET). CC: Sangeetha Irvin DO; Oscar Bartlett MD Drag Out Man: Signed 05-Apr-2018 Brain/Head without Contrast Result: Comments: See Note; NOTES: [facility] Imaging Services [address] [place] [address] Brain/Head without Contrast MR#: [id number] Acct: [id number] Name: IFEOMA ASHRAF Rep # : [id number] : 1965 F 53 From: Levy Lucas DO PCP: Sangeetha Irvin DO Status: REG CLI Study: Brain/Head without Contrast Date of Exam: 04/05/18 Exam# [id number] Ordering Dr: Oscar Bartlett MD STUDY : [...] 14:06 EDT Tel , Service support [phone]- [phone], N.B. : The above information has been verbally conveyed by Levy Lucas DO to connected , Covering Physician, on 04/05/2018 14:06:03 (ET). CC: Sangeetha Irvin DO; Oscar Bartlett MD Drag Out Man: Signed 31-Mar-2018 Cardiology Visit Report Result: Comments: See Note; NOTES: [facility] [address] [place] [address] OFFICE VISIT Date of Service: 03/31/18 MR#: [id number] Acct: [id number] Name: Ifeoma Ashraf Rep #: [id number] : 1965 Provider: Boone Ch MD Age/Sex: 53/F Location: [facility] Status: Signed HPI HPI Chief Complaint: [...] who presented to the emergency department at [facility] on 03/08/2018 aft er being found [...] Intake Visit Reasons: DC to [facility] 03-14 Pastoral Worker Required: No Accompanied by: mother Is [...] therapy. I would like to obtain a professor of chemistry ry profile to be able to appropriately adjust any diuretics. At this juncture it may be prudent to add Lasix 40 mg a day to her current regimen. 2. Presence of implantable cardioverter-defibrillator (I CD) Z95.810 Generator change 11/13 @ [facility] Dr. Ahmadi Plan She does [...] months. 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 Cardiovascular Services [address] [place] [address] 11/22/17 0803 MR#: [id number] Acct: [id number] Name: IFEOMA ASHRAF Rep #: [id number] [...] Dictated: 11/22/17 0803 Date Transcribed: 11/22/17 1518 Drag Out Man: Signed 18-Nov-2017 Office Visit Report Result: Comments: See Note; NOTES: [facility] [address] [place] [address]. [place] [address] OFFICE VISIT Date of Service: 11/17/17 MR#: [id number] Acct: [id number] Patient: IFEOMA ASHRAF Rep #: [id number] : 1965 Provider: Danica Pickering Age/Sex: 52/F Location: 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 Name: Lan PRO Model: [id number] Serial #: [id number] Implant Date: 11/10/17 Year(s): 0 Implant Physician: [...] and No drainage Bibiana ds Lead #1 Pipe Finishing Supervisor Lead 1: [employer] Model Lead 1: 7121Q/58 Serial# Lead 1: [id number] Date Implanted Lead 1: 10/10/09 Position Lead [...] in other diseases classified elsewhere I43 11/17/17 8440 <Electronically signed by Danica Pickering > Date Danica Pickering 11/18/17 0813<Electronically signed by Noe Morris MD> Cosigner Signature: Date (if applicable) Noe Morris MD CC: 10-Nov-2017 Operative Report Result: Comments: See Note; NOTES: [facility] Medical Records Department [address] [place] [address] Operative Report 11/10/17 1148 MR#: [id number] Acct: [id number] Name: SALOME ASHRAF Rep #: [id number] : 1965 52 From: Lior Ahmadi MD PCP: Sangeetha Irvin DO Status: REG [facility] Y Location: [facility] Operative Report Date of Procedure: 11/10/17 Preoperative diagnosis is device at end of life for normal battery depletion. Postoperative diagnosis same as above. After informed consent and IV antibiotics the patient was brought to the [facility] and the ski n over [...] chart documents provided by the device company retail service representative procedure summary. 11/10/17 1150 <Electronically signed by Lior Ahmadi MD > Date Lior Ahmadi MD CC: Sangeetha Irvin DO; Lior Ahmadi MD Signed 03-Nov-2017 Office Visit Report Result: Comments: See Note; NOTES: [facility] [address] [facility] [place] [address] OFFICE VISIT Date of Service: 11/03/17 MR#: [id number] Acct: [id number] Patient: IFEOMA ASHRAF Rep #: [id number] : 1965 Provider: Danica Pickering Age/Sex: 52/F Location: [facility] Status: Signed Comments Summary Comments: Written [...] in office Interview Reason: routine follow up Pipe Finishing Supervisor: [employer] Name: Current VR Model: 1211-36Q ICD Serial #: [id number] Implant Date: 10/10/09 Year(s): 8 Implant Physician: [...] Model Lead 1: 7121Q/58 Serial# Lead 1: [id number] Date Implanted Lead 1: 10/10/09 Position Lead [...] 11/03/17 1648<Electronically signed by Boone Ch MD> [facility] Signature: Date (if applicable) Boone Ch MD CC: 03-Nov-2017 Cardiology Visit Report Result: Comments: See Note; NOTES: [facility] [place] [address] OFFICE VISIT Date of Service: 11/03/17 MR#: [id number] Acct: [id number] Name: IFEOMA ASHRAF Rep #: [id number] : 1965 Provider: Boone Ch MD Age/Sex: 52/F Location: [facility] Status: Signed HPI [...] 25 to 29 (25% per echo 03/11/2015) COUNT INCLUDES THE [facility] Medical History Type 2 diabetes mellitus [...] of automatic cardioverter/defibrillator (AICD) Z95.810 10/06/2009 @ [facility] Plan She is status [...] also being followed up at the [facility]. She is also on spironolactone [...] and Lateral Result: Comments: See Note; NOTES: [facility] Imaging Services [address] [place] [address] Chest PA and Lateral MR#: [id number] Acct: [id number] Name: IFEOMA ASHRAF Rep #: [id number] : 1965 F 52 From: Dimitris Valderrama DO PCP: Sangeetha Irvin DO Status: PRE [facility] Study: Chest PA and Lateral Date of Exam: 11/03/17 Exam# [id number] Ordering Dr: Boone Ch MD STUDY: X-RAY [...] Dimitris Valderrama DO at 18:21 EST Tel [phone], Se rvice support , CC: Boone Ch MD; Sangeetha Irvin DO Drag Out Man: Signed 14-Oct-2017 Office Visit Report Result: Comments: See Note; NOTES: [facility] [address] [place] [address]. [place] [address] OFFICE VISIT Date of Service: 10/12/17 MR#: [id number] Acct: [id number] Patient: IFEOMA ASHRAF Rep #: [id number] : 1965 Provider: Danica Pickering Age/Sex: 52/F Location: [facility] Status: Signed Comments Summary Comments: Single Chamber ICD Evaluation: Interrogation shows No VT/VF episodes since . No Alerts noted. Left pectoral pocket/incision w/o s/s of infection or erosion. Pt offers no cardiac complaints. Presenting rhythm shows Sinus Tachycardia @ 105 bpm. Left pectoral pocket/incision w/o s/s of infection or erosion. HEAD OF LOSS PREVENTION=0%. Battery longevity approx 2.9 mos. At device check in June device showed longevity of 14 mos. D/T longevity decreasing quickly pt scheduled for ICD generator el gilliam with Dr. Ahmadi on 11/10/17 @ [facility]. Lead impedances, sensing and pace/sense threshold remain stable. No parameter changes made. Counters cleared. Pt scheduled for o.v and teaching on 11/03/17 and ICD g enerator change on 11/10/17. 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 Model Lead 1: 7121Q/58 Serial# Lead 1: [id number] Date Implanted Lead 1: 10/10/09 Position Lead [...] IV Contrast Result: Comments: See Note; NOTES: [facility] Imaging Services [address] [place] [address] Abdomen WITH IV Contrast MR#: [id number] Acct: [id number] Name: IFEOMA ASHRAF Rep #: [id number] : 1965 F 52 From: Carl Vincent MD PCP: Sangeetha Irvin DO Status: REG CLI Study: Abdomen WITH IV Contrast Date of Exam: 06/15/17 Exam# [id number] Ordering Dr: Analisa Conway MD STUDY: CT [...] CC: Analisa Conway MD; Sangeetha Irvin DO Drag Out Man: Signed 15-Jun-2017 Spine Cervical without Contras Result: Comments: See Note; NOTES: [facility] Imaging Services [address] [place] [address] Spine Cervical without Contras MR#: [id number] Acct: [id number] Name: IFEOMA ASHRAF p #: [id number] : 1965 F 52 From: Zev Mandujano MD PCP: Sangeetha Irvin DO Status: REG CLI Study: Spine Cervical without Contras Date of Exam: 06/15/17 Exam# [id number] Ordering Dr: Analisa Conway MD STUDY: CT [...] CC: Analisa Conway MD; Sangeetha Irvin DO Drag Out Man: Signed 10-Feb-2017 Spine Lumbar without Contrast Result: Comments: See Note; NOTES: [facility] Imaging Services [address] [place] [address] Verdana 4d Spine Lumbar without Contrast MR#: [id number] Acct: [id number] Name: MARIOWAQASMARISEL Pulido Rep #: [id number] : 1965 F 51 From: Brian Gill MD PCP: Sangeetha Irvin DO Status: REG CLI Study: Spine Lumbar without Contrast Date of Exam: 02/10/17 Exam# [id number] Ordering Dr: Analisa Carr i, MD STUDY: [...] CC: Analisa Conway MD; Sangeetha Irvin DO Drag Out Man: Signed 20-Jan-2017 Liver Result: Comments: See Note; NOTES: [facility] Imaging Services [address] [place] [address] Zach 4d Liver MR#: [id number] Acct: [id number] Name: IFEOMA ASHRAF Rep #: [id number] : 1965 F 51 From: Vincent Bui DO PCP: Sangeetha Irvin DO Status: REG CLI Study: Liver Date of Exam: 01/20/17 Exam# [id number] Ordering Dr: Sangeetha Irvin DO STUDY: ABDOMINAL [...] Vincent Bui DO at 23:43 EDT Tel [phone], Service support , CC: Sangeetha Irvin DO Drag Out Man: Signed 20-Jan-2017 Thyroid Result: Comments: See Note; NOTES: [facility] Imaging Services [address] [place] [address] Verdana 4d Thyroid MR#: [id number] Acct: [id number] Name: IFEOMA ASHRAF Rep #: [id number] : 1965 F 51 From: Jin Rolon PCP: Sangeetha Irvin DO Status: REG CLI Study: Thyroid Date of Exam: 01/20/17 Exam# [id number] Ordering Dr: Sangeetha Irvin DO STUDY: THYROID [...] Service support , CC: Sangeetha Irvin DO Drag Out Man: Signed 17-Nov-2016 Dexa Bone Density Study (HP) Result: Comments: See Note; NOTES: [facility] Imaging Services [address] [place] [address] Verdana 4d Dexa Bone Density Study (HP) MR#: [id number] Acct: [id number] Name: COL HARPAL ASHRAF Rep #: [id number] : 1965 F 51 From: Prashant Delgadillo MD PCP: Sangeetha Irvin DO Status: REG CLI Study: Dexa Bone Density Study (HP) Date of Exam: 11/17/16 Exam# [id number] Ordering Dr: Sangeetha Irvin DO STUDY: DUAL [...] Prashant Delgadillo MD at 10:52 EST Tel [phone], Service support [phone], CC: Sangeetha Irvin DO Drag Out Man: Signed 17-Nov-2016 SCREENING MAMM (CAD), BILAT Result: Comments: See Note; NOTES: [facility] Imaging Services [address] [place] [address] Verdana 4d SCREENING MAMM (CAD), BILAT MR#: [id number] Acct: [id number] Name: SALOME ASHRAF Rep #: [id number] : 1965 F 51 From: Prashant Delgadillo MD PCP: Sangeetha Irvin DO Status: [facility] CLI Study: SCREENING MAMM (CAD), BILAT Date of Exam: 11/17/16 Exam# [id number] Ordering Dr: Gary Irvin DO MAMMOGRAPHY - [...] biopsy of a clinically suspiciou s abnormality. [id number] Electronically Signed: Prashant Delgadillo MD at 12:55 EST Tel [phone], Service support [phone], CC: Sangeetha Irvin DO Drag Out Man: Signed 17-Nov-2016 SCREENING MAMM (CAD), BILAT Result: Comments: See Note; NOTES: [facility] Imaging Services [address] [place] [address] Verdana 4d SCREENING MAMM (CAD), BILAT MR#: [id number] Acct: [id number] Name: SALOME ASHRAF Ashok Rep #: [id number] : 1965 F 51 From: Prashant Delgadillo MD PCP: Sangeetha Irvin DO Status: REG CLI Study: SCREENING MAMM (CAD), BILAT Date of Exam: 11/17/16 Exam# [id number] Ordering Dr: Gary Irvin DO ADDENDUM by [...] delay biopsy of a clinically suspicious abnormality. [id number] Electronically Signed: Prashant Delgadillo MD at 13:07 EST Tel [phone], Service support [phone], 11/17/16 1318 Date cc: Sangeetha Irvin DO * Signed [...] delay biopsy of a clinically suspicious abnormality. [id number] Electronically Signed: Prashant Delgadillo MD at 12:55 EST Tel [phone], Ser vice support [phone], CC: Sangeetha Irvin DO Drag Out Man: Signed 19-Dec-2015 Liver Result: Comments: See Note; NOTES: [facility] Imaging Services [address] [place] [address] Verdana 4d Liver MR#: [id number] Acct: [id number] Name: IFEOMA ASHRAF Rep #: [id number] : 1965 F 50 From: Ziggy Santos MD PCP: Sangeetha Irvin DO Status: REG CLI Study: Liver Date of Exam: 12/19/15 Exam# [id number] Ordering Dr: Sangeetha Irvin DO STUDY: ABDOMINAL [...] at 10:55 EDT Tel , Service support [phone], CC: Sangeetha Irvin DO Drag Out Man: Signed 19-Dec-2015 Thyroid Result: Comments: See Note; NOTES: [facility] Imaging Services [address] [place] [address] Verdana 4d Thyroid MR#: [id number] Acct: [id number] Name: IFEOMA ASHRAF ep #: [id number] : 1965 F 50 From: Ziggy Santos MD PCP: Sangeetha Irvin DO Status: REG CLI Study: Thyroid Date of Exam: 12/19/15 Exam# [id number] Ordering Dr: Sangeetha Irvin DO STUDY: THYROID [...] at 10:56 EDT Tel , Service support [phone], CC: Sangeetha Irvin DO Drag Out Man: Signed 14-Aug-2015 Bilat Scrn Digital AND CAD Result: Comments: See Note; NOTES: [facility] Imaging Services [address] [place] [address] Verdana 4d Bilat Scrn Digital AND CAD MR#: [id number] Acct: [id number] Name: IFEOMA ASHRAF Rep #: [id number] : 1965 F 50 From: Prashant Delgadillo MD PCP: Sangeetha Irvin DO Status: REG CLI Study: Bilat Scrn Digital AND CAD Date of Exam: 08/14/15 Exam# [id number] Order ing Dr: Sangeetha Irvin DO MAMMOGRAPHY [...] Prashant Delgadillo MD at 10:49 EST Tel [phone], Service support [phone], CC: Sangeetha Irvin DO Drag Out Man: Signed 10-Mar-2015 Emergency Department Summary Result: Comments: See Note; NOTES: [facility] Medical Records Department [address] [place] [address] Emergency Department Summary MR#: [id number] Acct: [id number] Name: IFEOMA RASMUSSEN Rep #: [id number] : 1965 49 From: Mayito Roldan DO [...] way. Mayito Roldan DO T: NTS JOB: [id number] 03/10/15 2329 <Electronically signed by Mayito Roldan DO> Date Rosious Grecocarmelo DAVIS CC: Sangeetha Irvin DO Date Dictated: 02/28/15824 Date Transcribed: 02/28/15824 Drag Out Man: Signed 02-Mar-2015 Emergency Department Summary Result: Comments: See Note; NOTES: [facility] Medical Records Department [address] [place] [address] Emergency Department Summary MR#: [id number] Acct: [id number] Name: IFEOMA RASMUSSEN Rep #: [id number] : 1965 49 From: Alejandro Lopez DO [...] The patient has plans to [facility] on General. I will give her local surgeon's name if she wants to speak with them or she can certainly also speak with Dr. Irvin. CLINICAL IMPRESSION: Biliary colic. Alejandro Lopez DO T: ROCK JOB: [id number] 03/02/1543 <Electronically signed by Alejandro Lopez DO> Date Alejandro Lopez DO CC: Sangeetha Irvin DO Date Dictated: 718 Date Transcribed: 02/28/15718 Drag Out Man: Signed 28-Feb-2015 Discharge Instruction Result: Comments: See Note; NOTES: [facility] Medical Records Department [address] [facility] [place] [place] [address] Discharge Instruction 02/28/15638 MR#: [id number] Acct: [id number] Name: IFEOMA ASHRAF Rep #: [id number] : 1965 49 From: Alejandro Lopez DO [...] problems, contact your doctor. Call [facility] ([phone]) or report to the closest ergency Room. Call 911 if necessary. 02/28/15639 <Electronically signed by Alejandro Lopez DO> Date Alejandro Lopez DO Cosign er Signature (If Indicated): Date CC: Sangeetha Irvin DO 28-Feb-2015 Gallbladder Result: Comments: See Note; NOTES: [facility] Imaging Services [address] [place] [address] Ultrasound Report MR#: [id number] Acct: [id number] Name: IFEOMA ASHRAF Rep #: [id number] : 1965 F 49 From: Prashant Delgadillo MD PCP: Sangeetha Irvin DO Status: REG ER Study: Gallbladder Date of Exam: 02/28/15 Exam# [id number] Ordering Dr: Alejandro Lopez DO STUDY: ABDOM [...] Prashant Delgadillo MD at 8:15 EDT Tel [phone], Service support [phone], CC: Alejandro Lopez DO; Sangeetha Irvin DO Drag Out Man: Signed 11-Feb-2015 Spine Cervical without Contras Result: Comments: See Note; NOTES: [facility] Imaging Services [address] [place], [place] [address] [address] CAT Scan Report MR#: [id number] Acct: [id number] Name: IFEOMA ASHRAF Rep #: [id number] : 1965 F 49 From: Prashant Delgadillo MD PCP: Sangeetha Irvin DO Status: REG CLI Study: Spine Cervical without Contras Date of Exam: 02/11/15 Exam# [id number] Ordering Dr: Analisa Conway MD STUDY: CT [...] Prashant Delgadillo MD at 9:49 EDT Tel [phone], Service support [phone], CC: Analisa Conway MD; Sangeetha Irvin DO Drag Out Man: Signed 18-Jul-2014 Bilat Scrn Digital & CAD Result: Comments: See Note; NOTES: [facility] Imaging Services [address] [place] [address] Breast Imaging Report MR#: [id number] Acct: [id number] Name: IFEOMA ASHRAF Rep # : [id number] : 1965 F 49 From: Prashant Delgadillo MD PCP: Sangeetha Irvin DO Status: REG CLI Exam# [id number] Ordering Dr: Sangeetha Irvin DO MAMMOGRAPHY - [...] Prashant Delgadillo MD at 8:36 EDT Tel [phone], Evaneosi ce support [phone], CC: Sangeetha Irvin DO Drag Out Man: Signed 18-Jul-2014 Liver Result: Comments: See Note; NOTES: [facility] Imaging Services [address] [place] [address] Ultrasound Report MR#: [id number] Acct: [id number] Name: IFEOMA ASHRAF Rep #: [id number] : 1965 F 49 From: Prashant Delgadillo MD PCP: Sangeetha Irvin DO Status: REG CLI Study: Liver Date of Exam: 07/18/14 Exam# [id number] Ordering Dr: Sangeetha Irvin DO STUDY: ABDOMINAL [...] Prashant Delgadillo MD at 9:34 EDT Tel [phone], Service support [phone], CC: Sangeetha Irvin DO Drag Out Man: Signed 18-Jul-2014 Thyroid Result: Comments: See Note; NOTES: [facility] Imaging Services [address] [place] [address] Ultrasound Report MR#: [id number] Acct: [id number] Name: IFEOMA ASHRAF Rep #: [id number] : 1965 F 49 From: Prashant Delgadillo MD PCP: Sangeetha Irvin DO Status: REG CLI Study: Thyroid Date of Exam: 07/18/14 Exam# [id number] Ordering Dr: Sangeetha Irvin DO STUDY: THYROID [...] Delgadillo MD at 8:41 EDT T el [phone], Service support [phone], CC: Sangeetha Irvin DO Drag Out Man: Signed 05-Feb-2014 Brain/Head W/WO Contrast Result: Comments: See Note; NOTES: [facility] Imaging Services [address] [place] [address] CAT Scan Report MR#: [id number] Acct: [id number] Name: IFEOMA ASHRAF Rep #: [id number] : 1965 F 48 From: Prashant Delgadillo MD PCP: Sangeetha Irvin DO Status: REG CLI Study: Brain/Head W/WO Contrast Date of Exam: 02/05/14 Exam# [id number] Ordering Dr: Fast, Sangeetha DO STUD Y: [...] Prashant Delgadillo MD at 9:19 EDT Tel [phone], Service support [phone], CC: Sangeetha Irvin DO Drag Out Man: Signed Immunization Name Dates Details Influenza (3 years and up) on: 10-Jul-2008 Comments: injection given in left deltoid, pt tolerated welllot # [id number] Influenza (3 years and up) on: 09-Jul-2009 Comments: Lot #[id number]-right deltoidDose0.5mlgiven by Juventino Nye LPN Family History [...] kg/m2 Body Surface Area Calculated 2.02 m2 68-Bkx-360167:59 Temperature 97.9 f Comments: Method: Temporal Pulse [...] W/Diff, Automated Comments: BMP TO DUL[facility].CBCD, TSH, B12 TO DR. SANGEETHA IRVIN.[facility] Ycwkuxtzjx9128 [facility], [place], [address] Absolute Lymph 1.16 {X10_3/ul} (Normal) Range: 0.83-4.51 [...] 4.2-5.4 WBC 8.0 K/mm3 (Normal) Range: 4.4-11.0 53-Caa-21272:22 Vitamin B12 659 pg/mL (Normal) Comments: BMP TO [facility].CBCD, TSH, B12 TO DR. SANGEETHA IRVIN.[facility] U[address] [place], [place], [address] Range: 211-911 34-Hvp-48539:20 Basic Metabolic Profile (BMP) Comments: BMP TO [facility].CBCD, TSH, B12 TO DR. SANGEETHA IRVIN.[facility] Npvyartoqs7700 [place], [address] GAP 9 (Normal) Range: 5-15 [...] A.D.A. criteria.Please note revised GLUCOSE reference range kmyfoekqp20/02/2018. 13-Grp-04919:20 Thyroid Stim Hormone (TSH) Comments: BMP TO DULCE TIMMONS.CBCD, TSH, B12 TO DR. SANGEETHA IRVIN.[facility] Tsbeqjhwhr3196 [facility] [address]. [place], [place], [address] TSH 4.09 {uIU/mL} (Abnormal) Range: 0.358-3.74 83-Whx-746414:23 Basic Metabolic Profile (BMP) Comments: [facility] Zwsiwvkouy9747 [facility] [place], [place], [address] GAP 7 (Normal) Range: 5-15 CO2 30.0 [...] A.D.A. criteria.Please note revised GLUCOSE reference range jxdizotjs63/02/2018. 60-Mhg-627556:23 BNP,B-Type NATRIURETIC PEPTIDE Comments: [facility] Nyeqoedplm1496 [facility] [address] [place], [place], [address] B-TYPE JACKIE PEP 892.7 pg/mL (Abnormal) Range: 0-100 94-Fkm-038103:23 CBC W/Diff, Automated Comments: [facility] Dogeszjbzh3449 [facility] [address] [place], [place], [address] Absolute Lymph 1.23 {X10_3/ul} (Normal) Range: 0.83-4.51 [...] 4.2-5.4 WBC 7.2 K/mm3 (Normal) Range: 4.4-11.0 15-Tgr-349834:41 CBC W/Diff, Automated Comments: Reason for Laboratory Test .[facility] Utlyjwnahp63[address] [place], [place], [address] Absolute Lymph 0.85 {X10_3/ul} (Normal) Range: 0.83-4.51 [...] 4.2-5.4 WBC 5.7 K/mm3 (Normal) Range: 4.4-11.0 91-Xdc-450253:41 Comprehensive Metabolic Profil Comments: Reason for Laboratory Test .Serial Specimen #1, #2 or #3? [facility] Fwaolttptv79[address] [place], [address] GAP 8 (Normal) Range: 5-15 CO2 28.0 [...] A.D.A. criteria.Please note revised GLUCOSE reference range dlynulkjd09/02/2018. 76-Mln-821625:41 LDH 224 U/L (Normal) Comments: Reason for Laboratory Test .Serial Specimen #1, #2 or #3? [facility] Ucvmwrtcwj5410 [address] [place], [place], [address] Range: 84-246 2-Nsq-725182:41 URINE GENESIS CULTURE-IDENTIFICATN Comments: add to urine in lab; PATIENT NOT FASTINGPERFORMED BY: [facility]Co[address] [id number] Information: SRC: ([id number]) Result 1 ENTEAE (Abnormal) Comments: Enterobacter aerogenes1,000 [...] Range: 0.0-8.3 Comments: Khanh ECLIA methodologyPerformed at: [facility] LabCoThe [facility] Hospital [facility] Tinton FallsFkhkng[address] [place] [id number] Director: Omar Hood PhD, Phone: [phone] :46 CBC W/Diff, Automated Comments: [facility] Cupgmzpbjg4755 [address] [place], [place], [address] Absolute Lymph 0.95 {X10_3/ul} (Normal) Range: 0.83-4.51 [...] 4.2-5.4 WBC 5.6 K/mm3 (Normal) Range: 4.4-11.0 13-Hib-05011:46 Comprehensive Metabolic Profil Comments: PLEASE ADD T3F T4F TO BLOOD FROM 05-25-[address] Sdubgnarcr2586 [facility] [place], [place], [address] GAP 9 (Normal) Range: 5-15 CO2 28.0 [...] reference range /02/2018. :46 Digoxin Level Comments: [facility] [address] [place], [place], [address] DIG 0.71 ng/mL (Abnormal) Range: 0.80-2.00 :46 Free T3 Comments: PLEASE ADD T3F T4F TO BLOOD FROM 05-25-[address] Dfhsnreggt6926 [facility] [address] [place], [place], [address] FREE T3 3.2 pg/mL (Normal) Range: 2.18-3.98 :46 Hemoglobin A1c Comments: [address] [place], [place], [address] HGB A1C 5.4 % (Normal) Range: 4.2-6.3 :46 Lipid Profile Comments: PLEASE ADD T3F T4F TO BLOOD FROM 05-25-[address] Cezskxemrg3014 [address] [place], [place], [address] VLDL 22 mg/dL (Normal) Range: 5-40 LDL [...] High Risk :46 Microalb:Creat Ratio,Random UR Comments: [facility] Cfmdgbwowb2836 [place], [address] MALB:CREAT 7.8 {mg/g_CRE} (Normal) MICROALBUMIN,UR 10.9 mg/L (Normal) UR CREAT 139.00 mg/dL (Normal) :46 T4 Free Direct Comments: PLEASE ADD T3F T4F TO BLOOD FROM 05-25-[address] Nsoephxvat4470 [address] [place], [place], [address] T4 FREE DIRECT 1.11 ng/dL (Normal) Range: 0.76-1.46 :46 Thyroid Stim Hormone (TSH) Comments: PLEASE ADD T3F T4F TO BLOOD FROM 05-25-[address] Lzmyguyzat8688 [place], [address] TSH 0.31 {uIU/mL} (Abnormal) Range: 0.358-3.74 :46 Urinalysis, Complete Comments: How was Urine Obtained? CLEAN [facility] Zlpzsqsktp5143 [place], [address] MUCUS, URINE 0 SEEN {/hpf} [...] :46 Vitamin B12 368 pg/mL (Normal) Comments: [facility] Pksmsmwuxs84[address] [place], [address] Range: 211-911 90-Wuh-92947:46 Vitamin D,25 Hydroxy Comments: [facility] Luududytva1478 [place], [address] Vitamin D 25-OH 64.5 ng/mL (Normal) Range: 29.95-100.01 Comments: Vitamin D 25(OH) Status Range Deficiency <20 ng/mL (50nmol/L) Insuffciency 20 - 30 ng/mL (50 - 75 nmol/L) Sufficiency 30 - 100 ng/mL (75 - 250 nmol/L) Toxicity >100 ng/mL (>250 nmol/L) 79-Vdd-019143:52 Urinalysis, Complete Comments: Order Date: 04/06/18Has pt arrived? YHow was Urine Obtained? [facility] Cioevkkdpj6[address] [place], [address] HYALINE CAST 5-10 SEEN {/lpf} (Normal) [...] (Normal) CLARITY Cloudy (Normal) COLOR Yellow (Normal) 22-Euv-022827:30 CBC W/Diff, Automated Comments: [facility] Ykwxqudlwl6539 [address] [place], [place], [address] OVALOCYTE RARE (Normal) MACROCYTE 1+ (Normal) ANISO [...] 4.2-5.4 WBC 9.1 K/mm3 (Normal) Range: 4.4-11.0 16-Olz-401605:30 Comprehensive Metabolic Profil Comments: [facility] Vbsslxyzqq[address] [place], [place], [address] GAP 12 (Normal) Range: 5-15 CO2 30.0 [...] Comments: Please note revised GLUCOSE reference range ifhcowjlg24/02/2018. 70-Kcy-668658:30 Lactic Acid Comments: Yes/No query for Sepsis Lactate Rule [facility] Tktqmzatal5340 [address] [place], [place], [address] LACTIC ACID 6.7 mmol/L (Abnormal) Range: 0.4-2.0 Comments: Critical Result(s) Called Lisa RIVERA at: 20:23: by: BRITTANY TORRES 14-Qlo-485625:30 Partial Thromboplast Time Comments: [facility] Vlfyuvgnkq1688 [address] [place], [place], [address] PTT 41.3 s (Abnormal) Range: 24.1-36.2 95-Kku-354815:30 Prothrombin Time w/INR Comments: [facility] Irbjcpdvfz2697 [address] [place], [place], [address] INR 2.3 (Normal) PROTIME 25.6 s (Abnormal) Range: 11.7-14.9 64-Gwc-638947:30 Troponin-I Comments: [facility] Nxsczcrjtv1175 [address] [place] [place], [place], [address] TROPONIN-I 0.046 ng/mL (Abnormal) Comments: TROPONIN-I EXPECTED VALUES <0.045 Negative 0.045 - 0.590 Consistent with Cardiac Damage > OR = 0.600 Critical Value Not every elevated troponin is indicative of SD. T hesevalues should be used with clinical judgement in examiningthe patient's clinical picture for diagnosis. To establisha diagnosis of SD versus myocardial injury, there must be ademonstrated rise and/ or fall in the troponin values, inaddition to ischemic symptoms, EKG changes, new regionalwall motion abnormality, and/or angiographical evidence. PLEASE NOTE: REFERENCE RANGES EDITED 02/06/1805-Apr-201858-Ida-788123:08 Ammonia Comments: [facility] Wdaxzrjjgh0792 [address] [place], [place], [address] AMMONIA 20.0 umol/L (Normal) Range: 11-32 74-Lti-938159:08 CBC-Complete Blood Cnt No Diff Comments: [facility] Sjuichpveu3998 [address] [place], [address] MPV 10.6 fL (Normal) Range: 6.2-12.0 PLT [...] 4.2-5.4 WBC 6.6 K/mm3 (Normal) Range: 4.4-11.0 47-Izf-925552:08 Comprehensive Metabolic Profil Comments: [facility] Wsbfhbsdkn7594 [place], [place], [address] GAP 9 (Normal) Range: 5-15 CO2 35.0 [...] Comments: Please note revised GLUCOSE reference range yvqfkupos11/02/2018. 40-Twj-476950:08 Differential Comment Comments: [facility] Quajncaktx25[address] [place], [place], [address] SMEAR COMMENT COMMENT (Normal) Comments: SLIDE SCANNED - 1+ ANISO NOTED. 70-Tqj-84233:55 Urinalysis, Complete Comments: How was Urine Obtained? [facility] Wvfniruzya3212 [address] [place], [place], [address] AMORPHOUS 2+ (Normal) HYALINE CAST 5-10 SEEN [...] (Normal) :55 Urine Drug Screen (VISTA) Comments: [facility] Hzvmtppsac3188 [address] [place], [place], [address] TO BE CONFIRMED (Normal) Comments: CONFIRMATORY TESTING [...] TESTING MUST BE ORDERED SEPARATELY. USE TESTMNEMONIC: [facility] :59 Bedside Glucose Comments: [facility] LaboratoryPoint of Rdjr9406 [address] [place], [place] [address] BEDSIDE GLU 169 mg/dL (Abnormal) Range: 70-110 Comments: MANAGEMENT OF PATIENT CARE PER NURSING PROTOCOL :35 Basic Metabolic Profile (BMP) Comments: [facility] Putuntdtlu[address] [place], [place], [address] GAP 16 (Abnormal) Range: 5-15 CO2 15.0 mmol/L (Abnormal) Range: 21.0-32.0 CL 104 mmol/L (Normal) Range: 98-107 K 6.2 mmol/L (Abnormal) Range: 3.5-5.1 Comments: Critical Result(s) Called at: 01:06:28 03/08/2018 by:ANSLEY STANFORD,CLINICAL SERVICES PROFESSIONAL NA 135 mmol/L (Abnormal) Range: 136-145 CA [...] A.D.A. criteria.Please note revised GLUCOSE reference range lljunzboj70/02/2018. 29-Aiv-664368:59 Acetaminophen (Tylenol) Level Comments: [facility] Kdbufbjxku14[address] [place], [place], [address] ACETAMINOPHEN 4.9 ug/mL (Abnormal) Range: 10.0-30.0 Comments: Slight Icterus, Result may be falsely decreased. :59 Acetone Serum Comments: [facility] Jgozpsmboj7[address] [place], [address] ACETONE SERUM NEGATIVE (Normal) 31-Xev-445294:59 Alcohol, Blood (Medical)-Serum Comments: [facility] Wptmzwqdhv7028 [place], [address] SERUM ETOH 8.0 mg/dL (Normal) Comments: The serum:whole blood ethanol ratio is approximately 1.14and varies slightly with hematocrit.Medical Alcohol reference interval and critical value innon-tolerant individuals; 50 - 100 Impairment 100 Intoxication 100 - 250 Severe Poisoning 250 - 400 Deep/possible fatal coma 55-Vid-520513:59 Digoxin Level Comments: [facility] [address] [place], [place], [address] DIG 0.32 ng/mL (Abnormal) Range: 0.80-2.00 61-Ebr-644936:59 Lactic Acid Comments: Yes/No query for Sepsis Lactate Rule [facility] Lkfdfljnij1721 [address] [place], [place], [address] LACTIC ACID 12.4 mmol/L (Abnormal) Range: 0.4-2.0 Comments: Critical Result(s) Called at: 00:52:58 03/08/2018 by:ANSLEY OWENSCLINICAL SERVICES PROFESSIONAL 21-Kfl-623334:59 Partial Thromboplast Time Comments: [place] [address] [place], [address] PTT 33.7 s (Normal) Range: 24.1-36.2 69-Xxb-018660:59 Prothrombin Time w/INR Comments: [place] [address] [place], [address] INR 2.4 (Normal) PROTIME 26.4 s (Abnormal) Range: 11.7-14.9 :59 Salicylate Comments: [place] [address] [place], [address] SALICYLATE < 1.7 mg/dL (Abnormal) Range: 2.8-20.0 Comments: Slight Icterus, Result may be falsely decreased. :02 Blood Gases by [facility] Comments: [place] [address] [place] [address] SO2 ISTAT 99 % (Normal) [...] TYPE ART (Normal) :52 Bedside Glucose Comments: [place] [address] [place] [address] BEDSIDE GLU 214 mg/dL (Abnormal) Range: 70-110 Comments: MANAGEMENT OF PATIENT CARE PER NURSING PROTOCOL 53-Eoa-523566:37 Basic Metabolic Profile (BMP) Comments: [place] [address] [place], [place], [address] GAP 19 (Abnormal) Range: 5-15 CO2 11.0 [...] A.D.A. criteria.Please note revised GLUCOSE reference range upkmmaltv41/02/2018. 04-Rfh-599167:37 CBC W/Diff, Automated Comments: [facility] Dyxpfcydxs1226 [address] [place], [place], [address] CRENATED RBC 1+ (Normal) ANISO 1+ (Normal) [...] K/mm3 (Normal) Range: 4.4-11.0 :37 Lipase Comments: [facility] [address] [place] [address], [address] LIPASE 86 U/L (Normal) Range: 73-393 :37 Liver Profile Comments: [facility] Sodv[address] [place] [address], 3755[address] D BILI 1.07 mg/dL (Abnormal) Range: 0.00-0.30 T BILI 2.40 mg/dL (Abnormal) Range: 0.20-1.00 ALT 120 U/L (Abnormal) Range: 13-56 ALK P 94 U/L (Normal) Range: 45-117 AST 149 U/L (Abnormal) Range: 15-37 Comments: Moderate Hemolysis, Result may be falsely increased. GLOB 2.9 g/dL (Normal) Range: 2.2-4.2 ALB 3.0 g/dL (Abnormal) Range: 3.2-5.0 T PROT 5.9 g/dL (Abnormal) Range: 6.4-8.2 :37 Magnesium Comments: [facility] [address] [place], [address] MG 2.0 mg/dL (Normal) Range: 1.6-2.6 Comments: Moderate Hemolysis, Result may be falsely increased. :37 Troponin-I Comments: [facility] [address] [place], [address] TROPONIN-I 0.081 ng/mL (Abnormal) Comments: TROPONIN-I EXPECTED VALUES <0.045 Negative 0.045 - 0.590 Consistent with Cardiac Damage > OR = 0.600 Critical Value Not every elevated troponin is indicative of SD. T hesevalues should be used with clinical judgement in examiningthe patient's clinical picture for diagnosis. To establisha diagnosis of SD versus myocardial injury, there must be ademonstrated rise and/ or fall in the troponin values, inaddition to ischemic symptoms, EKG changes, new regionalwall motion abnormality, and/or angiographical evidence. PLEASE NOTE: REFERENCE RANGES EDITED 02/06/1824-Feb-20183-Cml-523978:21 CMV ANTIBODY (99386) Comments: today; PATIENT NOT FASTINGPERFORMED BY: [employer] Mgbxzw7780 [facility] [id number] Cytomegalovirus (CMV) Ab, IgG <0.60 U/mL (Normal) Range: 0.00-0.59 Comments: Negative <0.60 Equivocal 0.60 - 0.69 Positive >0.69 1-Hyx-930298:21 HEPATITIS PANEL (27695) Comments: today; PATIENT NOT FASTINGPERFORMED BY: JumpCamUNM Cancer CenterDmyyus0983 [facility] [id number] Hep C Virus Ab <0.1 {s/co_ratio} (Normal) Range: 0.0-0.9 Comments: Negative: < 0.8 Indeterminate: 0.8 - 0.9 Positive: > 0.9 . The CDC recommends that a positive HCV antibody result be followed up with a HCV Nucleic Acid Amplification test (768116). Hep B Core Ab, IgM Negative (Normal) HBsAg Screen Negative (Normal) Hep A Ab, IgM Negative (Normal) 3-Mke-200999:21 EBV Panel (03418) Comments: today; PATIENT NOT FASTINGPERFORMED BY: REINALDO [facility] Ssylrb1948 [facility] [id number] Interpretation: SPRCS (Normal) Comments: EBV Interpretation Chart [...] <36.0 Equivocal 36.0 - 43.9 Positive >43.9 45-Hjh-091274:19 CBC W/Diff, Automated Comments: Order Date: 02/23/18Order Info: 0184-1 - CBCDOrder Info: 09820-3 - [facility] Mttxctmrta0237 [place], [address] MACROCYTE 1+ (Normal) ANISO RARE [...] 4.2-5.4 WBC 6.9 K/mm3 (Normal) Range: 4.4-11.0 14-Uch-617408:19 Comprehensive Metabolic Profil Comments: Order Date: 02/23/18Order Info: 0786-1 - CMPOrder Info: 1798-8 - AMYOrder Info: 3040-3 - [facility] Mhrrdcvtqu8842 [address] [place], [place], [address] GAP 11 (Normal) Range: 5-15 CO2 25.0 [...] A.D.A. criteria.Please note revised GLUCOSE reference range ijxxmynzc80/02/2018. 50-Tox-733233:19 Erythrocyte Sed Rate Comments: Order Date: 02/23/18Order Info: 0184-1 - CBCDOrder Info: 99718-7 - [facility] [address]sqowhzd5760 [place], [address] SED RATE 16 mm/h (Normal) Range: 0-30 61-Bql-735384:19 Lipase (54047) Comments: Order Date: 02/23/18Order Info: 0786- 1 - CMPOrder Info: 1798-8 - AMYOrder Info: 3040-3 - [facility] [address]aoixscyz9[address] [place], [address] LIPASE 92 U/L (Normal) Range: 73-393 40-Zbr-408994:19 Amylase (82418) Comments: Order Date: 02/23/18Order Info: 0786- 1 - CMPOrder Info: 1798-8 - AMYOrder Info: 3040-3 - [facility] G[address]rajwxxr82[address] [place], [address] ARIAN 27 U/L (Normal) Range: 25-115 7-Onj-093671:15 Amylase Comments: CMP, CBCD IS FOR DR ORONA IS FOR [facility] Ipzbcacnra10[address] [place], [place], [address] ARIAN 29 U/L (Normal) Range: 25-115 9-Ocs-664858:15 CBC W/Diff, Automated Comments: CMP, CBCD IS FOR DR ORONA IS FOR [facility] Avckgxdpoh5397 [address] [place], [address] ANISO 1+ (Normal) Absolute Lymph 0.41 {X10_3/ul} [...] 4.2-5.4 WBC 5.3 K/mm3 (Normal) Range: 4.4-11.0 0-Msi-493295:15 Comprehensive Metabolic Profil Comments: CMP, CBCD IS FOR DR ORONA IS FOR [facility] Drnopgkhss6749 [place], [address] GAP 9 (Normal) Range: 5-15 [...] A.D.A. criteria.Please note revised GLUCOSE reference range iwdznhprr39/02/2018. 8-Ykn-322522:15 Digoxin Level Comments: CMP, CBCD IS FOR DR ORONA IS FOR [facility] Skhqgmsfqi4502 [place], [address] DIG 0.92 ng/mL (Normal) Range: 0.80-2.00 5-Fnk-643916:15 Lipase Comments: [facility], CBCD IS FOR DR ORONA IS FOR [facility] [address] [place], [address] LIPASE 101 U/L (Normal) Range: 73-393 2-Tpi-561662:15 Lipid Profile Comments: [facility], CBCD IS FOR DR ORONA IS FOR [facility] Rpamclball[address] [place], [address] VLDL 15 mg/dL (Normal) Range: [...] 200-240 mg/dL Borderline >240 mg/dL High Risk 6-Baz-053187:15 Magnesium Comments: [facility], CBCD IS FOR DR ORONA IS FOR [facility] Hwkguddawy5708 [place], [address] MG 1.8 mg/dL (Normal) Range: 1.6-2.6 6-Fdy-676110:15 Microalb:Creat Ratio,Random UR Comments: [facility], CBCD IS FOR DR ORONA IS FOR [facility] Tin[address]frin[address] [place], [address] MALB:CREAT 34.3 {mg/g_CRE} (Abnormal) MICROALBUMIN,UR 58.6 mg/L (Normal) UR CREAT 171.00 mg/dL (Normal) 5-Cks-139494:15 Thyroid Stim Hormone (TSH) Comments: CMP, CBCD IS FOR DR ORONA IS FOR [facility] Ufyjprtors4841 [place], [address] TSH 1.84 {uIU/mL} (Normal) Range: 0.358-3.74 2-Ubb-778942:15 Vitamin B12 383 pg/mL (Normal) Comments: CMP, CBCD IS FOR DR ORONA IS FOR [facility] Akxnwcplgo1235 [place], [address] Range: 211-911 5-Tfj-526973:15 Vitamin D,25 Hydroxy Comments: CMP, CBCD IS FOR DR ORONA IS FOR [facility] Bittxwqswx5561 [place], [address] Vitamin D 25-OH 72.0 ng/mL (Normal) Range: 29.95-100.01 Comments: Vitamin D 25(OH) Status Range Deficiency <20 ng/mL (50nmol/L) Insuffciency 20 - 30 ng/mL (50 - 75 nmol/L) Sufficiency 30 - 100 ng/mL (75 - 250 nmol/L) Toxicity >100 ng/mL (>250 nmol/L) 88-Qrv-086906:14 Blood Glucose , Office (08098) Blood Glucose , Office 137 (Normal) 22-Mth-664717:14 HgA1C , Office (06713) HgA1C , Office 6.1 % (Normal) Range: 4.6 - 7.1 50-Uiz-45732:35 CBC W/Diff, Automated Comments: [facility] [id number] [place], [address] Absolute Lymph 1.30 {X10_3/ul} (Normal) Range: [...] 4.2-5.4 WBC 4.2 K/mm3 (Abnormal) Range: 4.4-11.0 55-Ylj-28944:33 Comprehensive Metabolic Profil Comments: Reason for Laboratory Test [facility] [id number] [place], [place], [address] GAP 8 (Normal) Range: 5-15 CO2 31.0 mmol/L (Normal) Range: 21.0-32.0 CL 99 mmol/L (Normal) Range: 98-107 K 3.4 mmol/L (Abnormal) Range: 3.5-5.1 NA 138 mmol/L (Normal) Range: 136-145 T BILI 0.70 mg/dL (Normal) Range: 0.20-1.00 ALT 27 U/L (Normal) Range: 13-56 Comments: Please note revised ALT reference range hhakkyofr63/28/2018. ALK P 102 U/L (Normal) Range: 45-117 [...] A.D.A. criteria.Please note revised GLUCOSE reference range tjuwceugy52/02/2018. 32-Soq-08894:33 LDH 198 U/L (Normal) Comments: Reason for Laboratory Test OVSerial Specimen #1, #2 or #3? [facility] [id number] [place], [place], [id number] Range: 84-246 60-Gvz-271295:15 Culture, Urine Comments: [facility] Edvokrboar[address] [place], [place], [phone] CUUR See Note (Normal) Comments: VERBAL ORDER DR. IRVIN'S OFFICE Urine CultureORGANISM 1: Mixed Gram Positive OrganismsColony Count 11,000-25,000MIX CULTURE Mixed contaminants. Submit a new specimen if indicated. 58-Ppo-291180:11 CBC W/Diff, Automated Comments: [facility] U[address]knyfqpl[address] [place], [place], [address] Absolute Lymph 1.34 {X10_3/ul} (Normal) Range: 0.83-4.51 [...] 4.2-5.4 WBC 5.4 K/mm3 (Normal) Range: 4.4-11.0 01-Qzy-790291:11 Comprehensive Metabolic Profil Comments: Comments: [facility] Kbftgacssr9762 [place], [address] GAP 7 (Normal) Range: 5-15 CO2 28.0 mmol/L (Normal) Range: 21.0-32.0 CL 100 mmol/L (Normal) Range: 98-107 K 3.9 mmol/L (Normal) Range: 3.5-5.1 NA 135 mmol/L (Abnormal) Range: 136-145 T BILI 0.70 mg/dL (Normal) Range: 0.20-1.00 ALT 31 U/L (Normal) Range: 13-56 Comments: Please note revised ALT reference range xwlunkzlc59/28/2018. ALK P 110 U/L (Normal) Range: 45-117 [...] criteria.Please note revised GLUCOSE reference range /02/2018. 73-Fhn-965587:10 Urinalysis, Complete Comments: ORDERED UACDR.JACINDA ORDERED CMP AND CBCDComments: clean catchComments: clean catchHow was Urine Obtained? ELEMENTARY ELL TEACHER TO [facility] Tkpqjhpvpt9[address] [place], [place], [phone] MUCUS, URINE RARE {/hpf} (Normal) BACTERIA RARE [...] (Normal) CLARITY Cloudy (Normal) COLOR Yellow (Normal) 2-Xxq-624557:42 ,Serum,hCG Quali. Comments: Comments: [facility] [address]vbf[address] [place], [place], [address] HCGSQUAL NEGATIVE {Negative} (Normal) Range: 0-9 Nonpreg HCG Qual triggr 2 m[iU]/mL (Normal) 6-Hpw-034333:41 Basic Metabolic Profile (BMP) Comments: [facility] [address] [place], [place], [phone] GAP 10 (Normal) Range: 5-15 CO2 28.0 [...] A.D.A. criteria.Please note revised GLUCOSE reference range ibfrfxpmg91/02/2018. 2-Sbp-869249:41 CBC-Complete Blood Cnt No Diff Comments: [facility] [address] [place], [place], [phone] MPV 9.6 fL (Normal) Range: 6.2-12.0 PLT [...] 4.2-5.4 WBC 8.7 K/mm3 (Normal) Range: 4.4-11.0 9-Xur-447012:41 Prothrombin Time w/INR Comments: [facility] Intxaixemb2285 [facility] [place], [place], [address] INR 1.0 (Normal) PROTIME 12.9 s (Normal) Range: 11.7-14.9 :00 Culture, Urine Comments: [facility] Sdrzedimva6195 [facility] [place], [place], [address] CUUR See Note (Normal) Comments: Urine CultureORGANISM [...] &lt ;=20 S(NF) indicates non-formulary drug at [facility]. Approval by Infectious Disease Specialist required before non- formulary drugs may be ordered and/or dispensed. :27 AFP, Tumor Marker Comments: Is Patient ? NPatient's Weight (LBS.): 124Number of Fetuses: 0[facility] (refer to report for specific site)refer to report for address and phone number AFP TUMOR 2253 6.8 ng/mL (Normal) Range: 0.0-8.3 Comments: Khanh ECLIA methodologyPerformed at: CB - [facility] [address] [id number] Director: Omar Hood PhD, Phone: [phone] 25-Mgv-23904:27 CBC W/Diff, Automated Comments: [facility] [address]hrxgbkma[address] [place], [place], [address] Absolute Lymph 1.47 {X10_3/ul} (Normal) Range: 0.83-4.51 [...] Range: 4.4-11.0 :27 Comprehensive Metabolic Profil Comments: [facility] [address] [place], [place], [address] GAP 9 (Normal) Range: 5-15 CO2 28.0 [...] Range: 70-110 :27 Microalb:Creat Ratio,Random UR Comments: [facility] [address] [place], [place], [address] MALB:CREAT 17.4 {mg/g_CRE} (Normal) MICROALBUMIN,UR 37.5 mg/L (Normal) UR CREAT 215.00 mg/dL (Normal) :40 CBC W/Diff, Automated Comments: [facility] Z[address]gltlkclv75[address] [place], [address] Absolute Lymph 1.60 {X10_3/ul} (Normal) [...] 12/06/16Order Info: [id number] - *CMP Complete Metabolic PanelWTuscarawas Hospital Wychyiwxwv1892 [address] [place], [place], [address] GAP 10 (Normal) Range: 5-15 CO2 27.0 [...] <126 mg/dLsuggests IMPAIRED HOMEOSTASIS per A.D.A. criteria. 08-Wws-38578:15 Culture, Urine Comments: [facility] Guyouesmzv[address] [place], [address] CUUR See Note (Normal) Comments: Urine CultureORGANISM [...] $ <=20 S(NF) indicates non-formulary drug at [facility]. Approval by Infectious Disease Specialist required before non-formulary drugs may be ordered and/or dispensed. :35 HgA1C , Office (91583) HgA1C , Office 6.5 % (Normal) Range: 4.6 - 7.1 :07 AFP, Tumor Marker Comments: Is Patient ? [facility] (refer to report for specific site)refer to report for address and phone number AFP TUMOR 2253 8.5 ng/mL (Abnormal) Range: 0.0-8.3 Comments: Manifact ECLIA methodologyPerformed at: [facility] [place] [id number] Director: Omar Hood PhD, Phone: [phone] :[phone] CBC W/Diff, Automated Comments: [facility] Etintzsodj[address] [place], [address] Absolute Lymph 1.17 {X10_3/ul} (Normal) [...] Range: 4.4-11.0 31-May-20179:07 Comprehensive Metabolic Profil Comments: [facility] Sjwuuefgbm[address] [place], [place], [address] GAP 9 (Normal) Range: 5-15 CO2 28.0 [...] US Food and Drug Administration.Performed at: - Lab[address] [id number] Director: Zia Jarvis MD, Phone: [phone] INS RES/DIAB RK . (Normal) LDL SIZE [...] . (Normal) :07 Vitamin D,25 Hydroxy Comments: [facility] Pwrkaoxuwb1305 [facility] [place], [place], [phone] Vitamin D 25-OH 61.8 ng/mL (Normal) Comments: Vitamin D 25(OH) Status Range Deficiency <20 ng/mL (50nmol/L) Insuffciency 20 - 30 ng/mL (50 - 75 nmol/L) Sufficiency 30 - 100 ng/mL (75 - 250 nmol/L) Toxicity >100 ng/mL (>250 nmol/L) :48 Liver Profile Comments: [facility] Aerzzmbmpl7385 [facility] [place], [place], [address] D BILI 0.14 mg/dL (Normal) Range: 0.00-0.30 T BILI 0.50 mg/dL (Normal) Range: 0.20-1.00 ALT 57 U/L (Normal) Range: 12-78 ALK P 94 U/L (Normal) Range: 45-117 AST 40 U/L (Abnormal) Range: 15-37 GLOB 2.8 g/dL (Normal) Range: 2.3-3.5 ALB 3.9 g/dL (Normal) Range: 3.4-5.0 T PROT 6.7 g/dL (Normal) Range: 6.4-8.2 :45 Potassium Comments: [facility] Jqhbivlbcs[address] [place], [place], [address] K 4.3 mmol/L (Normal) Range: 3.5-5.1 :35 CBC W/Diff, Automated Comments: [facility] Ubwobunfvg44[address] [place], [place], [address] Absolute Lymph 1.24 {X10_3/ul} (Normal) Range: 0.83-4.51 [...] Range: 4.4-11.0 :35 Comprehensive Metabolic Profil Comments: [facility] Ecz[address]awuaq[address] [place], [place], [address] GAP 10 (Normal) Range: 5-15 CO2 31.0 [...] ASPIRATION (SLIDES ONLY) See Note (Normal) Comments: [facility] [address] [place], [address] 0 Comments: Patient: IFEOMA ASHRAF : 1965 (52/F) Acct Num: [id number] Phys: Janelle KING,Alejandro Unit Num: [id number] Loc: LABSPEC Specimen: [id number] Received: 03/18/17 - 1127 Spec Ty pe: ASPIRATION TISSUES TISSUES: COMMENT Correlation with clinical, radiologic findings and appropriate follow up are necessary. CYTOLOGY GROSS Received are ten smears labeled wi th the patient's name and designated per the requisition as left thyroid FNA. Submitted for staining. / 03/18/17 TC:5 CPT: 44641 CYTOLOGY STUDY Slides are reviewed. The specimen [...] <signature on file> 01-Mar-20179:30 HEPATITIS C ANTIBODY (38688) Comments: PATIENT NOT FASTINGPERFORMED BY: [employer] Jvppae9844 [facility] HospitalAngel AlertsHaywood [facility] Center [id number] Hep C Virus Ab <0.1 {s/co_ratio} (Normal) Range: 0.0-0.9 Comments: Negative: < 0.8 Indeterminate: 0.8 - 0.9 Positive: > 0.9 . The CDC recommends that a positive HCV antibody result be followed up with a HCV Nucleic Acid Amplification test (075224). :30 Potassium Serum (34656) Comments: PATIENT NOT FASTINGPERFORMED BY: [employer] Xfhgbw3585 [facility] CenterAngel AlertsHaywood Regional Medical Center [id number] Potassium, Serum 4.8 mmol/L (Normal) Range: 3.5-5.2 :29 HgA1C , Office (42966) HgA1C , Office 7.9 % (Abnormal) Range: 4.6 - 7.1 :53 CBC W/Diff, Automated Comments: [facility] [address] [place], [place], [address] Absolute Lymph 1.57 {X10_3/ul} (Normal) Range: 0.83-4.51 [...] Range: 4.4-11.0 :53 Comprehensive Metabolic Profil Comments: [facility] Rcveujhjuk[address] [place], [place], [address] GAP 11 (Normal) Range: 5-15 CO2 32.0 [...] per A.D.A. criteria. :53 Lipid Profile Comments: [facility] Wcwzenlkwg7986 [place], [address] VLDL 37 mg/dL (Normal) Range: 5-40 LDL [...] High Risk :53 Microalb:Creat Ratio,Random UR Comments: [facility] [address] [place], [place], [phone] MALB:CREAT 19.7 {mg/g_CRE} (Normal) MICROALBUMIN,UR 27.8 mg/L (Normal) UR CREAT 141.00 mg/dL (Normal) :53 Thyroid Stim Hormone (TSH) Comments: [facility] [address] [place], [place], [phone] TSH 2.39 {uIU/mL} (Normal) Range: 0.358-3.74 :53 Vitamin D,25 Hydroxy Comments: [facility] X[address] [place], [place], [address] Vitamin D 25-OH 79.9 ng/mL (Normal) Comments: Vitamin D 25(OH) Status Range Deficiency <20 ng/mL (50nmol/L) Insuffciency 20 - 30 ng/mL (50 - 75 nmol/L) Sufficiency 30 - 100 ng/mL (75 - 250 nmol/L) Toxicity >100 ng/mL (>250 nmol/L) 63-Xbz-167317:08 CBC W/Diff, Automated Comments: [facility] [address] [place], [place], [address] Absolute Lymph 2.04 {X10_3/ul} (Normal) Range: 0.83-4.51 [...] 4.2-5.4 WBC 9.0 K/mm3 (Normal) Range: 4.4-11.0 31-Qmr-557995:08 Comprehensive Metabolic Profil Comments: [facility] Wuyvznqfdv3972 [place], [place], [address] GAP 9 (Normal) Range: 5-15 CO2 27.0 [...] 126 mg/dLsuggests DIABETES MELLITUS per A.D.A. criteria. 71-Tex-744040:00 Culture, Urine Comments: [facility] [address]jn[address]udz[address] [place], [place], [phone] CUUR See Note (Normal) Comments: Urine CultureORGANISM 1: Mixed Gram Positive OrganismsColony Count >100,000MIX CULTURE Mixed contaminants. Submit a new specimen if indicated. 2-Epf-677423:25 CBC W/Diff, Auto - EPLAB Comments: At [facility] Medical Oncologypatients receive CBC w/auto Differential ONLY. Physicianwill place an order for a manual differential or Pathologistreview at his discretion. [facility]IENT [facility]. [address] [place] [address] [address] ARMOR RECONNAISSANCE VEHICLE CREWMAN: MATEO CASTANEDA DO PH:[phone] County Community Hospital Omvdstmisb8[address] [place], [place], [address] Absolute Lymph 1.42 {X10_3/uL} (Normal) Range: 0.83-4.51 [...] 4.2-5.4 WBC 6.3 K/mm3 (Normal) Range: 4.4-11.0 5-Fph-848518:25 Comprehensive Metabolic Profil Comments: Order Date: 06/07/16Order Date: 06/07/16erial Specimen #1, #2 or #3? 1[facility] Ecxbyixfdh9263 [place], [place], [address] GAP 11 (Normal) Range: 5-15 CO2 24.0 [...] 200 mg/dLsuggests DIABETES MELLITUS per A.D.A. criteria. 4-Ynu-569032:25 LDH 208 U/L (Normal) Comments: Order Date: 06/07/16Order Date: 16Serial Specimen #1, #2 or #3? [address] [place] [address] N[address] [place], [address] Range: 84-246 9-Klv-016089:25 Uric Acid Comments: Order Date: 06/07/16Order Date: 16Serial Specimen #1, #2 or #3? [address] [place] [address] Vxkztklnfo9[address] [place], [address] URIC 3.8 mg/dL (Normal) Range: 2.6-6.0 Comments: The drugs N-Acetylcysteine and Metamizole may falsely deressthis assay. :10 HgA1C , Office (84035) HgA1C , Office 8.0 % (Abnormal) Range: 4.6 - 7.1 :10 Blood Glucose , Office (74456) Blood Glucose , Office 223 (Normal) :24 AFP, Tumor Marker Comments: Is Patient ? [facility] (refer to report for specific site)refer to report for address and phone number AFP TUMOR 2253 8.5 ng/mL (Abnormal) Range: 0.0-8.3 Comments: Khanh ECLIA methodologyPerformed at: - [facility] [address] [id number] Director: Omar Hood PhD, Phone: [phone] :24 CBC W/Diff, Automated Comments: [facility] Ldmyaahokm5[address] [place], [place], [address] Absolute Lymph 1.35 {X10_3/ul} (Normal) Range: 0.83-4.51 [...] 4.2-5.4 WBC 4.1 K/mm3 (Abnormal) Range: 4.4-11.0 63-Yyw-86229:24 Comprehensive Metabolic Profil Comments: [facility] Yaeqgrawgi[address] [place], [place], [address] GAP 9 (Normal) Range: 5-15 CO2 27.0 [...] 126 mg/dLsuggests DIABETES MELLITUS per A.D.A. criteria. 22-Qmm-25045:24 NMR Lipoprofile Comments: [facility] (refer to report [...] the US Food and Drug Administration.Performed at: [address] [id number] Director: Zia Jarvis MD, Phone: [phone] INS RES/DIAB RK . (Normal) LDL SIZE [...] mg/dL (Normal) Range: 100-199 LIPIDS . (Normal) 91-Ttr-679913:53 CBC W/Diff, Automated Comments: [facility] K[address]ss[address]hnp6[address] [place], [address] Absolute Lymph 1.41 {X10_3/ul} (Normal) [...] Range: 4.4-11.0 :53 Comprehensive Metabolic Profil Comments: [facility] Shwoxgqaps97[address] [place], [place], [address] GAP 13 (Normal) Range: 5-15 CO2 24.0 [...] 200 mg/dLsuggests DIABETES MELLITUS per A.D.A. criteria. 63-Bxp-80193:42 CBC W/Diff, Automated Comments: [facility] T[address]oklbmjzb[address] [place], [place], [address] Absolute Lymph 1.92 {X10_3/ul} (Normal) Range: 0.83-4.51 [...] 4.2-5.4 WBC 6.2 K/mm3 (Normal) Range: 4.4-11.0 29-Zvx-68826:42 Comprehensive Metabolic Profil Comments: [facility] [address]cmaal8[address] [place], [place], [address] GAP 11 (Normal) Range: 5-15 CO2 25.0 [...] :55 Magnesium Comments: Order Date: 06/07/16Order Date: 06/07/16[facility] [address]lbnt[address] [place], [place], [address](363) MG 2.0 mg/dL (Normal) Range: 1.8-2.4 :57 CBC W/Diff, Auto - EPLAB Comments: At [facility] Medical Oncologypatients receive CBC w/auto Differential ONLY. Physicianwill place an order for a manual differential or Pathologistreview at his discretion. [facility]IENT [facility]. [address] [place] [address] [address] ARMOR RECONNAISSANCE VEHICLE CREWMAN: MATEO CASTANEDA DO PH:[phone] County Community Hospital Sab[address]zcnvq64[address] [place], [place], [phone] Absolute Lymph 1.38 {X10_3/uL} (Normal) Range: 0.83-4.51 [...] Profil Comments: Order Date: 06/07/16OV Order #: [id number] Specimen #1, #2 or #3? 1 [id number] Hospital Ajhoaktytq7844 [place], [address] GAP 13 (Normal) Range: 5-15 CO2 24.0 [...] (Normal) Comments: Order Date: 06/07/16 Order #: [id number] Specimen #1, #2 or #3? [id number] [place] [address] [place], [address] Range: 84-246 :56 Magnesium Comments: Order Date: 06/07/16 Order #: [id number] Specimen #1, #2 or #3? [id number] [place] [address] [place], [address] MG 1.5 mg/dL (Abnormal) Range: 1.8-2.4 :56 Uric Acid Comments: Order Date: 06/07/16 Order #: [id number] Specimen #1, #2 or #3? [address] [place] [address] [place], [address] URIC 4.8 mg/dL (Normal) Range: 2.6-6.0 Comments: The drugs N-Acetylcysteine and Metamizole may falsely deressthis assay. :30 Liver Profile Comments: [facility] [address] [place], [address] D BILI 0.13 mg/dL (Normal) Range: 0.00-0.30 T BILI 0.40 mg/dL (Normal) Range: 0.20-1.00 ALT 60 U/L (Normal) Range: 12-78 ALK P 126 U/L (Normal) Range: 50-136 AST 37 U/L (Normal) Range: 15-37 GLOB 2.7 g/dL (Normal) Range: 2.3-3.5 ALB 3.4 g/dL (Normal) Range: 3.4-5.0 T PROT 6.1 g/dL (Abnormal) Range: 6.4-8.2 :33 CBC W/AUTO DIFF WBC Comments: PATIENT NOT FASTINGPERFORMED BY: REINALDO QuantiSenseThe Rehabilitation Hospital of Tinton FallsCzaatd5033 [facility] [id number] Information: NURSE DRAW (04568) Immature Grans (Abs) 0.0 {x10E3/uL} (Normal) Range: [...] PANEL, COMPREHENSIVE Comments: PATIENT NOT FASTINGPERFORMED BY: QuantiSenseThe Rehabilitation Hospital of Tinton FallsJkxtdr1129 [facility] [id number] (20248) ALT (SGPT) 41 [iU]/L (Abnormal) Range: 0-32 [...] (Abnormal) Range: 65-99 :09 HgA1C , Office (09869) HgA1C , Office 7.0 % (Normal) Range: 4.6 - 7.1 :14 AFP, Tumor Marker Comments: Is Patient ? [facility] (refer to report for specific site)refer to report for address and phone number AFP TUMOR 2253 7.7 ng/mL (Normal) Range: 0.0-8.3 Comments: Khanh ECLIA methodologyPerformed at: CB - [facility] [address] [id number] Director: Omar Hood PhD, Phone: [phone] :14 CBC W/Diff, Automated Comments: [facility] [address] [place], [address] ; will review on 05/17 [...] Range: 4.4-11.0 :14 Comprehensive Metabolic Profil Comments: [facility] Trgpuhopqq9[address] [place], [place], [address] GAP 7 (Normal) Range: 5-15 CO2 28.0 [...] 126 mg/dLsuggests DIABETES MELLITUS per A.D.A. criteria. 87-Nph-06528:14 Lipid Profile Comments: [facility] [address]xfiuftz2[address] [place], [address] VLDL 36 mg/dL (Normal) Range: 5-40 LDL [...] High Risk :14 Microalb:Creat Ratio,Random UR Comments: [facility] [address]alfw[address] [place], [address] ; will review on 05/17 MALB:CREAT 14.6 {mg/g_CRE} (Normal) MICROALBUMIN,UR 23.4 mg/L (Normal) UR CREAT 160.00 mg/dL (Normal) :14 Thyroid Stim Hormone (TSH) Comments: [facility] [address]ps[address] [place], [address] TSH 1.89 {uIU/mL} (Normal) Range: 0.358-3.74 :14 Vitamin D,25 Hydroxy Comments: [facility] [address] [place], [address] ; will review on 05/17 Vitamin D 25-OH 53.2 ng/mL (Normal) Comments: Vitamin D 25(OH) Status Range Deficiency <20 ng/mL (50nmol/L) Insuffciency 20 - 30 ng/mL (50 - 75 nmol/L) Sufficiency 30 - 100 ng/mL (75 - 250 nmol/L) Toxicity >100 ng/mL (>250 nmol/L) :23 CBC W/Diff, Automated Comments: [facility] Ljnxbvkjgy2459 [facility] [place], [address] Absolute Lymph 1.65 {X10_3/ul} (Normal) Range: [...] 4.2-5.4 WBC 4.4 K/mm3 (Normal) Range: 4.4-11.0 89-Ngk-92339:23 Comprehensive Metabolic Profil Comments: [facility] Hfuudmkalo7765 [place], [place], [address] GAP 9 (Normal) Range: 5-15 CO2 30.0 [...] per A.D.A. criteria. :07 HgA1C , Office (02440) HgA1C , Office 8.5 % (Abnormal) Range: 4.6 - 7.1 :15 CBC W/Diff, Automated Comments: [facility] [address]fzqabpn55[address] [place], [address] Absolute Lymph 1.76 {X10_3/ul} (Normal) Range: 0.83-4.51 [...] 4.2-5.4 WBC 6.7 K/mm3 (Normal) Range: 4.4-11.0 15-Hqm-91987:15 Comprehensive Metabolic Profil Comments: [facility] Stpvwonowh[address] [place], [place], [address] GAP 13 (Normal) Range: 5-15 CO2 23.0 [...] per A.D.A. criteria. :15 Lipid Profile Comments: [facility] Ztagtazhmw[address] [place], [place], [address] VLDL 45 mg/dL (Abnormal) Range: 5-40 LDL [...] High Risk :15 Vitamin D,25 Hydroxy Comments: [facility] Nfkshzkzkf9887 [facility] [address] [place], [place], [address] Vitamin D 25-OH 28.8 ng/mL (Normal) Comments: Vitamin D 25(OH) Status Range Deficiency <20 ng/mL (50nmol/L) Insuffciency 20 - 30 ng/mL (50 - 75 nmol/L) Sufficiency 30 - 100 ng/mL (75 - 250 nmol/L) Toxicity >100 ng/mL (>250 nmol/L); ADDENDA: non-emergent till apt :35 CBC W/Diff, Automated Comments: [facility] Dlwytoqmcx0676 [facility] [address] [place], [place], [address] Absolute Lymph 1.26 {X10_3/ul} (Normal) Range: 0.83-4.51 [...] 4.2-5.4 WBC 4.8 K/mm3 (Normal) Range: 4.4-11.0 74-Zps-11386:35 Comprehensive Metabolic Profil Comments: [facility] Ieeseaqfat1086 [address] [place], [place], [address] GAP 14 (Normal) Range: 5-15 CO2 26.0 [...] 200 mg/dLsuggests DIABETES MELLITUS per A.D.A. criteria. 14-Wed-87912:0 ASPIRATION (SLIDES ONLY) See Note (Normal) Comments: [facility] Etoogdrnwe8448 [facility] [place], [place], [address] 0 Comments: Patient: IFEOMA ASHRAF : 1965 (50/F) Acct Num: [id number] Phys: Janelle KING,Alejandro Unit Num: [id number] Loc: LABSPEC Specimen: [id number] Received: 01/06/16 - 1129 Spec Ty pe: ASPIRATION TISSUES TISSUES: COMMENT Correlation with clinical, radiologic findings and appropriate follow up are necessary. CYTOLOGY GROSS Received are 10 smears labeled wit h the patient's name and designated per the requisition as fine needle aspiration left thyroid. Submitted for staining. 01/06/16 TC:5 CPT:26585 CYTOLOGY STUDY Slides are reviewed. The spe [...] Signed Toni Yepez 01/07/16 <signature on file> 8-Xdp-748217:29 CBC W/Diff, Auto - EPLAB Comments: At [facility] Medical Oncologypatients receive CBC w/auto Differential ONLY. Physicianwill place an order for a manual differential or Pathologistreview at his discretion. [facility] OUTPATIENT [facility]. [address] [place] [address] [place] [address] ARMOR RECONNAISSANCE VEHICLE CREWMAN: MATEO CASTANEDA DO PH:[phone] County Community Hospital Elnlsetomm99[address] [place], [address] Absolute Lymph 1.49 {X10_3/uL} (Normal) [...] Comments: Serial Specimen #1, #2 or #3? 1[facility] Kvxixhodgo55[address] [place], [address] GAP 8 (Normal) Range: 5-15 CO2 26.0 [...] 126 mg/dLsuggests DIABETES MELLITUS per A.D.A. criteria. 3-Xjd-861752:28 LDH 213 U/L (Normal) Comments: Serial Specimen #1, #2 or #3? [address] [place] [address] A[address]obanypd[address] [place], [place], [address] Range: 84-246 8-Cod-120439:28 Magnesium Comments: Serial Specimen #1, #2 or #3? [address] [place] [address] Twdgbeqdsr9714 [address] [place], [place], [address] MG 1.6 mg/dL (Abnormal) Range: 1.8-2.4 8-Wuw-610667:28 Uric Acid Comments: Serial Specimen #1, #2 or #3? 1[facility] Tispybgjlx0529 [place], [id number] URIC 4.8 mg/dL (Normal) Range: 2.6-6.0 :36 Miscellaneous Lab Procedure Comments: Comments: [id number] URINE TOX,RUN LOWEST TESTTest(s) Ordered: [id number] URINE TOX,RUN LOWEST TESTWTuscarawas Hospital Atnxavesmj4330 [place], [id number] [facility] Comments: [id number] 6+OXYCODONE-BUND (ng/mL)DRUG RESULT SCREEN CUTOFF____ Amphetamines,Urine Negat LAB (Normal) scott ng/mL 1000Amphetamine test includes Amphetamine and Methamphetamine.Barbiturates Negative ng/mL 200Benzodiazepines Negative ng/mL 200Cannabinoid TEST Negative ng/mL 20Cocaine (Metab) Negative ng/mL 300Opiates Positive ng/mL 300 Opiates test includes Codeine, Morphine, Hydromorphone, [place] codone.Please Note:Confirmation performed by Mass SpectrometryCodeine NegativeMorphine NegativeHydromorphone NegativeHydrocodone Positive Hydrocodone Confirm 1950 ng/mL 300Oxycodone/Oxymorphone,Urine Negative ng/mL 300 Test includes Oxydodone and Oxymorphone. TESTI NG PERFORMED AT [facility]. ORIGINAL REPORT ON FILE IN LAB CONTAINS ADDITIONAL TEST SITE INFORMATION. :36 Urine Drug Screen (VISTA) Comments: Comments: [id number] URINE TOX,RUN LOWEST TESTList of Drugs Taken or Suspected? UNKNOWNWT[facility] [id number] [place], [place], [id number] ; ordered by Basali THC NEGATIVE (Normal) [...] MUST BE ORDERED SEPARATELY. USE TESTMNEMONIC: [facility] [id number] HgA1C , Office (84763) HgA1C , Office 7.3 % (Abnormal) Range: 4.6 - 7.1 :13 AFP, Tumor Marker Comments: Is Patient ? [facility] (refer to report for specific site)refer to report for address and phone number AFP TUMOR 2253 6.4 ng/mL (Normal) Range: 0.0-8.3 Comments: Manifact ECLIA methodologyPerformed at: CB - [facility] [address] [id number] Director: Omar Hood PhD, Phone: [phone] :[phone] CBC W/Diff, Automated Comments: [facility] [address] [place], [address] Absolute Lymph 1.59 {X10_3/ul} (Normal) [...] 4.2-5.4 WBC 5.3 K/mm3 (Normal) Range: 4.4-11.0 46-Guj-10376:13 Comprehensive Metabolic Profil Comments: [facility] Jhgizarnmz0865 [place], [place], [id number] GAP 10 (Normal) Range: 5-15 CO2 24.0 [...] per A.D.A. criteria. :13 Lipid Profile Comments: [facility] Irlgqnvwij4896 [place], [address] ; non-emergent and pt has [...] High Risk :13 Microalb:Creat Ratio,Random UR Comments: [facility] [address] [place], [address] MALB:CREAT 17.0 {mg/g_CRE} (Normal) MICROALBUMIN,UR 43.7 mg/L (Normal) UR CREAT 257.00 mg/dL (Normal) :13 Thyroid Stim Hormone (TSH) Comments: [facility] Tgvqrmcntt4587 [address] [place], [id number] TSH 1.82 {uIU/mL} (Normal) Range: 0.358-3.74 :13 Vitamin D,25 Hydroxy Comments: [facility] Xsvogzsvuq[address] [place], [id number] ; will review at 11/10 appt Vitamin D 25-OH 39.8 ng/mL (Normal) Comments: Vitamin D 25(OH) Status Range Deficiency <20 ng/mL (50nmol/L) Insuffciency 20 - 30 ng/mL (50 - 75 nmol/L) Sufficiency 30 - 100 ng/mL (75 - 250 nmol/L) Toxicity >100 ng/mL (>250 nmol/L) :40 CBC W/Diff, Automated Comments: [facility] Dlvmzzijmj37[address] [place], [address] Absolute Lymph [...] 4.2-5.4 WBC 4.7 K/mm3 (Normal) Range: 4.4-11.0 46-Dqg-83511:40 Comprehensive Metabolic Profil Comments: [facility] Wmmxxajiyg[address] [place], [place], [address] GAP 13 (Normal) Range: 5-15 CO2 24.0 [...] per A.D.A. criteria. :49 HgA1C , Office (22399) HgA1C , Office 7.8 % (Abnormal) Range: 4.6 - 7.1 :09 CBC W/Diff, Automated Comments: [facility] [address] [place], [address] Absolute Lymph 1.07 {X10_3/ul} (Normal) Range: 0.83-4.51 [...] 4.2-5.4 WBC 5.3 K/mm3 (Normal) Range: 4.4-11.0 54-Imz-303139:09 Comprehensive Metabolic Profil Comments: [facility] Dkxzjfsrno[address] [place], [place], [address] GAP 7 (Normal) Range: 5-15 CO2 28.0 [...] 200 mg/dLsuggests DIABETES MELLITUS per A.D.A. criteria. 7-Pxp-461066:42 CBC W/Diff, Automated Comments: At [facility] Oncologypatients receive CBC w/auto Differential ONLY. Physicianwill place an order for a manual differential or Pathologistreview at his discretion. [facility]. [address] [place] [address] [address] ARMOR RECONNAISSANCE VEHICLE CREWMAN: MATEO CASTANEDA DO PH:[phone] performed at:[facility] [address] [place] [address] Absolute Lymph 1.60 {X10_3/ul} (Normal) [...] 4.2-5.4 WBC 7.0 K/mm3 (Normal) Range: 4.4-11.0 6-Mgu-277822:42 Comprehensive Metabolic Profil Comments: Serial Specimen #1, #2 or #3? 1Test performed at:[facility] [address] [place] [address] GAP 9 (Normal) Range: 5-15 [...] Comments: Please note revised CREATININE reference range eaidnixqe87/22/2015. BUN 20 mg/dL (Abnormal) Range: 7-18 GLU 118 mg/dL (Abnormal) Range: 70-110 Comments: Fasting Glucose result from 110 to <126 mg/dLsuggests IMPAIRED HOMEOSTASIS per A.D.A. criteria. 4-Lun-628099:42 LDH 133 U/L (Normal) Comments: Serial Specimen #1, #2 or #3? 1Test performed at:[facility] [address] [place] [address] Range: 84-246 8-Mpi-044070:42 Uric Acid Comments: Serial Specimen #1, #2 or #3? 1Test performed at:[facility] B[address] [place] [address] URIC 4.6 mg/dL (Normal) Range: 2.6-6.0 7-Uer-204654:02 CBC W/Diff, Automated Comments: Test performed at:[facility] Tmjtetfhvc[address] [place] [id number] ; handled by vicki Absolute Lymph 1.23 [...] 4.2-5.4 WBC 4.1 K/mm3 (Abnormal) Range: 4.4-11.0 1-Bbv-012425:02 Comprehensive Metabolic Profil Comments: Test performed at:[facility] Qtzajnpito[address] [place], [place] [address] GAP 12 (Normal) Range: 5-15 CO2 23.0 [...] Comments: Please note revised CREATININE reference range bpifaycqk96/22/2015. BUN 11 mg/dL (Normal) Range: 7-18 GLU 214 mg/dL (Abnormal) Range: 70-110 Comments: Glucose result greater than or equal to 200 mg/dLsuggests DIABETES MELLITUS per A.D.A. criteria. 62-Msr-565044:49 VITAMIN B-12 (CYANOCOBALAMIN) Comments: PATIENT NOT FASTINGPERFORMED BY: [facility] FallsXylmsj3193 [facility] [id number] (41734) Vitamin B12 464 pg/mL (Normal) Range: 211-946 01-Tma-528020:49 Vitamin D Hydroxy (92253) Comments: PATIENT NOT FASTINGPERFORMED BY: [facility] FallsMcgzqi8786 [facility] [id number] Vitamin D, 25-Hydroxy 11.5 ng/mL (Abnormal) Range: 30.0-100.0 Comments: Vitamin D deficiency has been defined by the [place] [employer] and an Endocrine Society practice guideline as alevel of serum 25-OH vitamin D less than 20 ng/mL (1,2).The Endocrine Society went on to further define vitamin Dinsufficiency as a level between 21 and 29 ng/mL (2).1. IOM ([place] [employer]). 2010. Dietary reference intakes for calcium and D. [place]: The National Academies Press.2. Sami MF, Sophie NC, Xiomara LARES, et al. Evaluation, treatment, and prevention of vitamin D deficiency: an Endocrine Society clinical practice guideline. JCEM. 2010; 96(7):1911-30. :49 CBC W/AUTO DIFF WBC Comments: PATIENT NOT FASTINGPERFORMED BY: [facility] Gkrgbp8943 [facility] [id number] Information: [id number] (34797) Immature Grans (Abs) 0.0 {x10E3/uL} (Normal) Range: [...] 3.77-5.28 WBC 6.1 {x10E3/uL} (Normal) Range: 3.4-10.8 33-Avf-769622:28 URINE GENESIS CULTURE-NITA COL Comments: PATIENT NOT FASTINGPERFORMED BY: [facility] Lwaqgd0780 Mohinder StuartAt[facility] Health [id number] Information: [facility] [id number] COUNT (58936) Antimicrobial MIHEAD (Normal) Comments: S = Susceptible; [...] Imipenem Meropenem Urine Final report (Abnormal) Culture,Comprehensive 37-Nqh-963268:24 Urinalysis, Office (74251) UA - LEUKOCYTE ESTERASE Trace (Normal) UA - NITRITE Negative (Normal) URINE UROBILINGN NITA TIMED Normal mg/dL (Normal) UA - PROTEIN 30 mg/dL (Normal) UA - PH 6 (Abnormal) UA - BLOOD Negative (Normal) UA - SPECIFIC GRAVITY 1.030 (Abnormal) UA - KETONES Moderate mg/dL (Normal) UA - BILIRUBIN Small (Normal) UA - GLUCOSE Negative (Normal) 01-Apr-20157:54 Bedside Glucose Comments: Test performed at:[facility] [address] [place] [address] BEDSIDE GLU 129 mg/dL (Abnormal) Range: 70-110 Comments: MANAGEMENT OF PATIENT CARE PER NURSING PROTOCOL 31-Mar-20159:47 Urinalysis, Office (01484) UA - LEUKOCYTE ESTERASE Trace (Normal) UA - NITRITE Negative (Normal) URINE UROBILINGN NITA TIMED 2 mg/dL (Normal) UA - PROTEIN 300 mg/dL (Normal) UA - PH 6.0 (Normal) UA - BLOOD Hemolyzed Large (Normal) UA - SPECIFIC GRAVITY 1.030 (Abnormal) UA - KETONES 15 mg/dL (Abnormal) UA - BILIRUBIN Moderate (Normal) UA - GLUCOSE Negative (Normal) 31-Iij-005313:57 Basic Metabolic Profile (BMP) Comments: Test performed at:[facility] Tfixahplxk[address] [place] [address] GAP 11 (Normal) Range: 5-15 CO2 27.0 [...] 126 mg/dLsuggests DIABETES MELLITUS per A.D.A. criteria. 51-Zcw-542573:57 Digoxin Level Comments: Test performed at:[facility] [address] [place] [address] DIG 1.17 ng/mL (Normal) Range: 0.80-2.00 32-Zae-188226:57 Hemoglobin A1c Comments: Test performed at:[facility] [address] [place] [address] HGB A1C 7.0 % (Abnormal) Range: 4.2-6.3 54-Zyo-529570:57 Thyroid Stim Hormone (TSH) Comments: Test performed at:[facility] [address] [place] [address], [place] [address] TSH 0.89 {uIU/mL} (Normal) Range: 0.358-3.74 :17 Urine Culture,Comprehensive Comments: PATIENT NOT FASTINGPERFORMED BY: REINALDO [facility] Lejhhh0590 [address] [place] [id number] Information: [facility]C:[facility] [id number] Result 1 BETAGB (Abnormal) Comments: Beta hemolytic [...] 02/28/15How was Urine Obtained? CLEAN CATCHTest performed at:[facility] Ijeuoauwgp1102 [facility] [place] [address] AMORPHOUS 1+ URATE (Normal) MUCUS, [...] :55 CBC W/Diff, Automated Comments: Test performed at:[facility] Rbtlhhfblt7932 [facility] [place] [address] Absolute Lymph 1.29 {X10_3/ul} (Normal) [...] :55 Comprehensive Metabolic Profil Comments: Test performed at:[facility] Ruftenmbhz[address] [place] [address] GAP 10 (Normal) Range: 5-15 [...] A.D.A. criteria. :55 Lipase Comments: Test performed at:[facility] Efvaxrvrwt[address] [place] [address] LIPASE 142 U/L (Normal) Range: 70-290 6-Uzl-353460:40 HgA1C , Office (28139) HgA1C , Office 7.4 % (Abnormal) Range: 4.6 - 7.1 :03 CBC W/Diff, Automated Comments: Test performed at:[facility] Hpshxomzep6473 [place] [address] Absolute Lymph 1.31 {X10_3/ul} (Normal) Range: 0.83-4.51 [...] 4.2-5.4 WBC 5.1 K/mm3 (Normal) Range: 4.4-11.0 68-Sot-027349:03 Comprehensive Metabolic Profil Comments: Test performed at:[facility] L[address]abajudsa[address] [place], [place] [address] GAP 11 (Normal) Range: 5-15 CO2 26.0 [...] 126 mg/dLsuggests DIABETES MELLITUS per A.D.A. criteria. 36-Ljv-034189:00 Culture, Urine Comments: Test performed at:[facility] Sgtldcgzzc[address] [place], [place] [address] CUUR See Note (Normal) Comments: Urine CultureORGANISM 1: Streptococcus agalactiae (B)[place] Count 1000-10,000 Streptococcus agalactiae (B): REACTION Ampicillin $ <=0.25 S Benzylpenicillin NF <=0.06 S Ceftriaxone (other dx) $ <=0.12 S Inducable Clindamycin Resistan - Linezolid $$$$ <=2 S Vancomycin $ 0.5 S(NF) indicates non-formulary drug at [facility]. Approval by Infectious Disease Specialist required before non-formulary drugs may be ordered and/or dispensed. * CLSI guidelines does not recommend testing of cephalosporins. This interpretation is deduced from Beta-lactam/penicillin results.; ADDENDA: handled by edvin :32 CBC W/Diff, Auto - EPLAB Only Comments: At [facility] Outpatient [facility], [facility] patientsreceive CBC w/auto Differential ONLY. Physician will placean order for a manual differential or Pathologist review athis discretion. [facility] OUTPATIENT [facility]. [address] [place] [address] [address] ARM[employer]ISS[employer] VEHICLE CREWMAN: MATEO CASTANEDA DO PH:[phone] performed at:[facility] Dqddpinavu[address] [place], [place] [id number] ; Richie Absolute Neut 2.7 {X10_3/uL} (Normal) [...] Specimen #1, #2 or #3? 1Test performed at:[facility] Rrtqlq[address]smr[address] [place], [place] [address] Range: 87-241 Comments: ADDENDA: richie :34 TSH (44747) Comments: PATIENT WAS FASTINGPERFORMED BY: [facility] Bhvskd1097 [facility] [id number] TSH 1.240 {uIU/mL} (Normal) Range: 0.450-4.500 :34 LIPID PANEL (80736) Comments: PATIENT WAS FASTINGPERFORMED BY: [facility] Urdmpr0500 [facility] [id number] LDL/HDL Ratio 2.6 {ratio_units} (Normal) Range: 0.0-3.2 [...] CREATININE RATIO Comments: PATIENT WAS FASTINGPERFORMED BY: [facility]SenseThe [facility] FallsEeihol4463 [facility] [id number]; non- emergent till apt tomorrow (41534) AND (90552) Microalb/Creat Ratio 14.8 {mg/g_creat} (Normal) Range: 0.0-30.0 Microalbumin, Urine 44.5 ug/mL (Abnormal) Range: 0.0-17.0 Creatinine, Urine 301.0 mg/dL (Abnormal) Range: 15.0-278.0 :34 METABOLIC PANEL, Comments: PATIENT WAS FASTINGPERFORMED BY: [facility]enseThe [facility] FallsAsehun8432 [facility] [id number] Information: [id number] COMPREHENSIVE (88967) ALT (SGPT) 21 [iU]/L (Normal) Range: 0-32 [...] Glucose, Serum 161 mg/dL (Abnormal) Range: 65-99 5-Laq-953956:10 HgA1C , Office (07287) HgA1C , Office 7.2 % (Abnormal) Range: 4.6 - 7.1 97-Cgx-710132:47 CBC W/Diff, Automated Comments: Test performed at:[facility] Diikkwqape39[address] [place], [place] [address] ; Handled by Vicki Absolute Lymph 1.43 [...] 4.2-5.4 WBC 5.4 K/mm3 (Normal) Range: 4.4-11.0 59-Uon-499645:47 Comprehensive Metabolic Profil Comments: Test performed at:[facility] [address]ptpviim[address] [place], [place] [address] GAP 6 (Normal) Range: 5-15 CO2 30.0 [...] Microscopic Examination Comments: PATIENT NOT FASTINGPERFORMED BY: [facility]6370 [facility] [id number] Bacteria Few (Normal) Mucus Threads Present (Normal) Epithelial Cells (non renal) 0-10 {/hpf} (Normal) Range: 0 - 10 RBC 0-2 {/hpf} (Normal) Range: 0 - 2 WBC >30 {/hpf} (Abnormal) Range: 0 - 5 :01 Urinalysis, Routine Comments: PATIENT NOT FASTINGPERFORMED BY: [facility]6370 [facility] [id number] Microscopic Examination See below: (Normal) Comments: Microscopic was indicated and was performed. Nitrite, Urine Negative (Normal) Urobilinogen,Semi-Qn 0.2 mg/dL (Normal) Range: 0.0-1.9 Bilirubin Negative (Normal) Occult Blood Negative (Normal) Ketones Trace (Abnormal) Glucose Negative (Normal) Protein 1+ (Abnormal) WBC Esterase 3+ (Abnormal) Appearance Turbid (Abnormal) Urine-Color Yellow (Normal) pH 6.0 (Normal) Range: 5.0-7.5 Specific [place] 1.030 (Normal) Range: 1.005-1.030 94-Zvg-733745:18 CBCD ALC 1.30 {X10_3/ul} (Normal) Range: 0.83-4.51 [...] 4.2-5.4 WBC 4.5 K/mm3 (Normal) Range: 4.4-11.0 94-Ukv-592377:18 CMP GAP 7 (Normal) Range: 5-15 CO2 [...] mg/dLsuggests DIABETES MELLITUS per A.D.A. criteria. :01 JPDIZ-FVLZNOJSLCZ-ZXRKZ (58463) Comments: PATIENT NOT FASTINGPERFORMED BY: [facility]6370 [facility] [id number] AFP, Serum, Tumor Marker 7.1 ng/mL (Normal) Range: 0.0-8.3 Comments: Khanh ECLIA methodology :01 PTT (Activated Partial Comments: PATIENT NOT FASTINGPERFORMED BY: [place] 8522370 [facility] [id number] Thromboplastin Time) (86963) aPTT 25 {sec} (Normal) Range: 24-33 Comments: This test has not been validated for monitoring unfractionated heparintherapy. aPTT-based therapeutic ranges for unfractionated heparintherapy have not been established. For general guidelines onHeparin monitoring, refer to the [facility] Directory of Services. :01 PT (Prothrobim Time) (47876) Comments: PATIENT NOT FASTINGPERFORMED BY: [facility]6370 [facility] [id number] Prothrombin Time 10.4 {sec} (Normal) Range: 9.1-12.0 INR 1.0 (Normal) Range: 0.8-1.2 Comments: Reference interval is for non-anticoagulated patients. . Suggested INR therapeutic range for Vitamin K anta gonist therapy: Standard Dose (moderate intensity therapeutic range): 2.0 - 3.0 Higher intensity therapeutic range 2.5 - 3.5 :01 TSH (07320) Comments: PATIENT NOT FASTINGPERFORMED BY: [place] 8522370 [facility] [id number] TSH 1.450 {uIU/mL} (Normal) Range: 0.450-4.500 :01 CBC W/AUTO DIFF WBC Comments: PATIENT NOT FASTINGPERFORMED BY: [place] 8522370 [facility] [id number] Information: [id number] (37463) Immature Grans (Abs) 0.0 {x10E3/uL} (Normal) Range: [...] CREATININE RATIO Comments: PATIENT NOT FASTINGPERFORMED BY: [facility]The [facility] FallsFmdtxb3159 [facility] [id number] (99028) AND (42194) Microalb/Creat Ratio 26.4 {mg/g_creat} (Normal) Range: 0.0-30.0 Microalbumin, Urine 96.0 ug/mL (Abnormal) Range: 0.0-17.0 Creatinine, Urine 364.2 mg/dL (Abnormal) Range: 15.0-278.0 5-Luis Angel-32870:01 METABOLIC PANEL, COMPREHENSIVE Comments: PATIENT NOT FASTINGPERFORMED BY: REINALDO [facility] Jkvnzf1231 [facility] [id number] (52321) ALT (SGPT) 19 [iU]/L (Normal) Range: 0-32 [...] mg/dL (Abnormal) Range: 65-99 :01 LIPID PANEL (89353) Comments: PATIENT NOT FASTINGPERFORMED BY: [facility] Bvknin8708 [place] [facility] [id number] LDL/HDL Ratio 2.1 {ratio_units} (Normal) Range: 0.0-3.2 [...] (Normal) Range: 100-199 :19 HgA1C , Office (79566) HgA1C , Office 6.3 % (Normal) Range: [...] 7-18 GLU 102 mg/dL (Normal) Range: 70-110 51-Ezf-60925:59 Anaerobic & Aerobic Comments: PATIENT NOT FASTINGPERFORMED BY: [facility]CoThe [facility] FallsGhqtqq8986 [facility] [id number] Information: SRC:[facility] [id number] RIGHT EYE Culture (04830) Antimicrobial MIHEAD (Normal) Comments: S = Susceptible; [...] hours. Anaerobic Culture Final report (Normal) :57 [id number]-BKZIV (72298) Comments: PATIENT WAS FASTINGPERFORMED BY: [facility]6370 [facility] [id number] AFP, Serum, Tumor Marker 9.2 ng/mL (Abnormal) Range: 0.0-8.3 Comments: Khanh ECLIA methodology :57 PTT (Activated Partial Comments: PATIENT WAS FASTINGPERFORMED BY: [facility]6370 [facility] [id number] Thromboplastin Time) (15305) aPTT 26 {sec} (Normal) Range: 24-33 Comments: This test has not been validated for monitoring unfractionated heparintherapy. aPTT-based therapeutic ranges for unfractionated heparintherapy have not been established. For general guidelines onHeparin monitoring, refer to the [facility] Directory of Services. :57 PT (Prothrobim Time) (88719) Comments: PATIENT WAS FASTINGPERFORMED BY: [facility]6370 [facility] [id number] Prothrombin Time 10.5 {sec} (Normal) Range: 9.1-12.0 INR 1.0 (Normal) Range: 0.8-1.2 Comments: Reference interval is for non-anticoagulated patients. . Suggested INR therapeutic range for Vitamin K anta gonist therapy: Standard Dose (moderate intensity therapeutic range): 2.0 - 3.0 Higher intensity therapeutic range 2.5 - 3.5 :57 TSH (29020) Comments: PATIENT WAS FASTINGPERFORMED BY: [facility]6370 [facility] [id number] TSH 3.200 {uIU/mL} (Normal) Range: 0.450-4.500 :57 CBC WITH MANUAL DIFF Comments: PATIENT WAS FASTINGPERFORMED BY: [facility]enseThe [facility] FallsKkkcae7104 [facility] [id number] Information: [id number] (98474) Immature Grans (Abs) 0.0 {x10E3/uL} (Normal) Range: [...] PANEL, COMPREHENSIVE Comments: PATIENT WAS FASTINGPERFORMED BY: [facility]enseThe [facility] FallsNaakwg7244 [facility] [id number] (88569) ALT (SGPT) 15 [iU]/L (Normal) Range: 0-32 [...] (Abnormal) Range: 65-99 :29 HgA1C , Office (84892) HgA1C , Office 5.4 % (Normal) Range: [...] 7-18 GLU 76 mg/dL (Normal) Range: 70-110 1-Qgf-835678:50 LIPID LDL 82 mg/dL (Normal) Range: 0-130 [...] CHOL 150 mg/dL (Normal) Comments: <200 mg/dL Hqpcgppxw393-797 mg/dL Borderline>240 mg/dL High Risk :50 HgA1C , Office (64139) HgA1C , Office 5.8 % (Normal) Range: [...] be sent to the patient by the [facility] within 30 days. Approximately 10% of breast cancers are not detected by mammography. Anormal mammogram should not delay biopsy of a clinically suspiciousabnormality. Signed:Prashant Delgadillo M.D.S [facility] 2012 at 9:19:01 AM [phone] Signed GP/GP If you are the referring physician and would like to consult with theradiologist who provided this interpretation, please herbie Bonilla M.D. at [phone]. If this radiologist is unavailable, youwill be directed to another radiologist to assist. If you are a patient with a question regarding this report, pleaseco ntactyour referring physician directly. Professional Interpretation Provided By: [employer], Phone , These documents contain legally protected [...] on 06/15/13920 Sign by: Prashant Delgadillo MD 73-Xpo-03767:27 THYROID Radiology Report See Note Comments: STUDY: [...] Delgadillo M.D.June 15, 2013 at 2:56:26 PM [phone] 8Electronically Signed GP/GP If you are the referring physician and would like to consult with theradiologist who provided this interpretation, please contact Sarmad Bonilla at [phone]. If this radiologist is unavailable, youwill be directed to another radiologist to assist. If you are a patient with a question regarding this report, pleasecontactyour referring physician directly. manda baugh Interpretation Provided By: [employer], Phone , These documents contain legally [...] on 06/15/131732 Sign by: Prashant Delgadillo MD 2-Zqy-816981:18 URINE GENESIS CULTURE-NITA COL Comments: PATIENT NOT FASTINGPERFORMED BY: [facility] Pytxgl5262 [facility] [id number] Information: SRC: [id number] COUNT (92415) Antimicrobial MIHEAD (Normal) Comments: S = Susceptible; [...] primarily for treating urinary tract infections. (CLSI, B767-E88,2009) Urine Culture,Comprehensive Final report (Normal) 04-Jun-20138:48 Urinalysis, Office (51857) UA - LEUKOCYTE ESTERASE Large (Normal) UA - NITRITE Positive (Normal) URINE UROBILINGN NITA TIMED 2 mg/dL (Normal) UA - PROTEIN Negative mg/dL (Normal) UA - BLOOD Negative (Normal) UA - KETONES Moderate mg/dL (Normal) UA - BILIRUBIN Moderate (Normal) UA - GLUCOSE Small mg/dL (Normal) 90-Vuu-87533:06 MICROALBUMIN: CREATININE RATIO Comments: PATIENT WAS FASTINGPERFORMED BY: Wibiya70 [address] [facility] [id number] (97075) AND (41425) Microalb/Creat Ratio 27.4 {mg/g_creat} (Normal) Range: 0.0-30.0 Microalbumin, Urine 85.2 ug/mL (Abnormal) Range: 0.0-17.0 Creatinine, Urine 311.1 mg/dL (Abnormal) Range: 15.0-278.0 53-Gjd-98491:06 METABOLIC PANEL, Comments: PATIENT WAS FASTINGPERFORMED BY: Wibiya70 [facility] [id number] Information: ADD [id number] AND DRAW FEE 99 3707 COMPREHENSIVE (51497) ALT (SGPT) 29 [iU]/L (Normal) Range: 0-32 [...] Glucose, Serum 76 mg/dL (Normal) Range: 65-99 20-Scm-31292:06 TSH (25578) Comments: PATIENT WAS FASTINGPERFORMED BY: hetras LabCoAppwappBtcezv9415 [facility] [id number] TSH 3.040 {uIU/mL} (Normal) Range: 0.450-4.500 56-Pwq-63375:06 LIPID PANEL (93162) Comments: PATIENT WAS FASTINGPERFORMED BY: hetras [facility] Nwcfxc8947 [facility] [id number] LDL/HDL Ratio 2.4 {ratio_units} (Normal) Range: 0.0-3.2 HDL Cholesterol 55 mg/dL (Normal) Comments: According to ATP-III Guidelines, HDL-C >59 mg/dL is considered anegative risk factor for CHD. LDL Cholesterol Calc 134 mg/dL (Abnormal) Range: 0-99 VLDL Cholesterol Ramandeep 18 mg/dL (Normal) Range: 5-40 Cholesterol, Total 207 mg/dL (Abnormal) Range: 100-199 Triglycerides 89 mg/dL (Normal) Range: 0-149 :06 LIJQN-ROGUHKAHIBH-MROQK (99203) Comments: PATIENT WAS FASTINGPERFORMED BY: [facility]6370 [facility] [id number] AFP, Serum, Tumor Marker 5.4 ng/mL (Normal) Range: 0.0-8.3 Comments: Khanh ECLIA methodology :06 PTT (Activated Partial Comments: PATIENT WAS FASTINGPERFORMED BY: [address] [id number] Thromboplastin Time) (99923) aPTT 27 {sec} (Normal) Range: 24-33 Comments: This test has not been validated for monitoring unfractionated heparintherapy. aPTT-based therapeutic ranges for unfractionated heparintherapy have not been established. For general guidelines onHeparin monitoring, refer to the [facility] Directory of Services. :06 PT (Prothrobim Time) (53818) Comments: PATIENT WAS FASTINGPERFORMED BY: [facility]6[address] [facility] [id number] INR 1.1 (Normal) Range: 0.8-1.2 Comments: Reference interval is for non-anticoagulated patients. . Suggested INR therapeutic range for Vitamin K anta gonist therapy: Standard Dose (moderate intensity therapeutic range): 2.0 - 3.0 Higher intensity therapeutic range 2.5 - 3.5 Prothrombin Time 11.0 {sec} (Normal) Range: 9.1-12.0 :51 HgA1C , Office (89738) HgA1C , Office 5.0 % (Normal) Range: 4.6 - 7.1 :48 CBCD PATHR Reviewed (Normal) Comments: Leukopenia.Relative neutrophilia.Clinical correlation necessary.Toni Yepez M.D. 02/16/13 AMENDED REPORT 02/16/13 6097 PATH REV previously reported as: January follReason: [...] 4.2-5.4 WBC 3.6 {k/mm3} (Abnormal) Range: 4.4-11.0 17-Vdu-05852:48 CMP GAP 9 (Normal) Range: 5-15 CO2 [...] mg/dL (Normal) Range: 70-110 :03 Rapid Flu (49984 x 2) Influenza A Ag positive b (Normal) :27 METABOLIC PANEL, COMPREHENSIVE Comments: PATIENT WAS FASTINGPERFORMED BY: [facility]CoThe [facility] FallsVwhent9919 [facility] [id number] (61233) ALT (SGPT) 25 [iU]/L (Normal) Range: 0-32 [...] mg/dL (Normal) Range: 65-99 :27 LIPID PANEL (04487) Comments: PATIENT WAS FASTINGPERFORMED BY: QuantiSenseThe [facility] T[facility] FallsBqeonj6698 [facility] [id number] LDL/HDL Ratio 0.9 {ratio_units} (Normal) Range: 0.0-3.2 LDL Cholesterol Calc 29 mg/dL (Normal) Range: 0-99 VLDL Cholesterol Ramandeep 17 mg/dL (Normal) Range: 5-40 HDL Cholesterol 32 mg/dL (Abnormal) Comments: According to ATP-III Guidelines, HDL-C >59 mg/dL is considered anegative risk factor for CHD. Cholesterol, Total 78 mg/dL (Abnormal) Range: 100-199 Triglycerides 84 mg/dL (Normal) Range: 0-149 :27 TSH (99520) Comments: PATIENT WAS FASTINGPERFORMED BY: QuantiSenseThe [facility] FallsNshthc1956 [facility] [id number] TSH 3.990 {uIU/mL} (Normal) Range: 0.450-4.500 :27 CBC WITH MANUAL DIFF Comments: PATIENT WAS FASTINGPERFORMED BY: [facility]6[address] [facility] [id number] Information: [id number] (39604) Immature Grans (Abs) 0.0 {x10E3/uL} Range: 0.0-0.1 [...] 4.4 ng/mL (Normal) Range: 0.0-8.3 9:39 Comments: Manifact ECLIA methodologyPerformed at: CB - LabCo[address] [id number] Director: Manuelito Mendez PhD, Phone: [phone] 00-Gmh-52422:39 CBCMD ANC 2.4 3/uL (Normal) Range: 2.0-7.7 [...] CHOL 130 mg/dL (Normal) Comments: <200 mg/dL Xcwgcdehw657-032 mg/dL Borderline>240 mg/dL High Risk :39 MIACRE tMICROCREAT 16.5 {mg/g_CRE} (Normal) MIALB 23.3 mg/L (Normal) CREU 141.0 mg/dL (Normal) :39 PT INR 1.1 (Normal) PTP 13.6 s (Normal) Range: 11.9-14.4 :39 PTT PTTP 29.5 s (Normal) Range: 24.1-36.2 :17 Rapid Flu (74058 x 2) Influenza A Ag neg (Normal) :29 HgA1C , Office (48259) HgA1C , Office 5.9 % (Normal) Range: 4.6 - 7.1 :53 FT3 2.9 pg/mL (Normal) Range: 2.18-3.98 :53 T4F 1.26 ng/dL (Normal) Range: 0.76-1.46 :53 TPO 8 {IU/mL} (Normal) Range: 0-34 Comments: Performed at: [facility] [id number] Director: Codi Robles MD, Phone: [phone] TSH 1.23 {uIU/mL} (Normal) Range: 0.358-3.74 :04 HgA1C , Office (37807) HgA1C , Office 5.8 % (Normal) Range: [...] LIPID Comments: ORDERED TSH LIPID CMP CBCSAN JOAQUIN VALLEY REHABILITATION HOSPITALFerJACINDA ORDERED VITD CMP CBCD VLDL 21 mg/dL [...] (Normal) Comments: ORDERED TSH LIPID CMP CBCMD [facility]ITALFerJACINDA ORDERED VITD CMP CBCD Range: 0.358-3.74 :26 VITD 44.8 ng/mL (Normal) Comments: ORDERED TSH LIPID CMP CBCMD [facility]OSPITALFerJACINDA ORDERED VITD CMP CBCD Range: 30.0-100.0 Comments: Vitamin D deficiency has been defined by the [place] of[facility] [place] and an Endocrine Society practice guideline as alevel of serum 25-OH vitamin D less than 20 ng/mL (1,2).The Endocrine Society went on to further define vitamin Dinsufficiency as a level between 21 and 29 ng/mL (2).1. IOM ([place] of Medicine). 2010. Dietary reference intakes for calcium and D. [place]: The National Academies Press.2. Sami PATEL, Sophie MOORE, Xiomara LARES, et al. Evaluation, treatment, and prevention of vitamin D deficiency: an Endocrine Society clinical practice guideline. JCEM. 2010; 96(7): 1911-30.Performed at: [place] [address] [place], [place] [id number] Director: Codi Robles MD, Phone: [phone] 27-Jan-20128:02 BILAT SCRN DIGITAL & CAD Radiology [...] Signed GP/GP Professional Interpretat ion Provided By: [facility]iologyO[facility], , To consult with a radiologist regarding this report, please call our [id number] line @ Dicta dani on 01/27/12 0813 by Faustina KING,Dukeribed on 01/27/12 0950 by ITS IMPORTSign by Faustina KING,Prashant on 01/27/12 0951 Sign by: Prashant Delgadillo MD 25-Wfp-546009:24 HgA1C , Office (24466) HgA1C , Office 5.7 % (Normal) Range: 4.6 - 7.1 41-Eiz-768200:24 Blood Glucose , Office (98544) Blood Glucose , Office 89 (Normal) 41-Fsn-872151:31 Urinalysis, Office (54908) UA - LEUKOCYTE ESTERASE Small (Normal) UA - NITRITE Positive (Normal) URINE UROBILINGN NITA TIMED Normal mg/dL (Normal) UA - PROTEIN 300 mg/dL (Normal) UA - PH 6.0 (Normal) UA - SPECIFIC GRAVITY 1.025 (Normal) UA - KETONES Small mg/dL (Normal) UA - BILIRUBIN Moderate (Normal) UA - GLUCOSE Negative (Normal) :15 HgA1C , Office (16204) HgA1C , Office 6.8 % (Normal) Range: 4.6 - 7.1 :15 Blood Glucose , Office (30869) Blood Glucose , Office 162 (Normal) 66-Nva-406633:22 THYROID Radiology Report See Note (Normal) Comments: [...] Comments: PATIENT NOT FASTINGPERFORMED BY: CB [facility] Auyhkl6574 [address] RoadDublin [place] [id number] Information: SRC:URC [id number] COUNT (10755) Antimicrobial MIHEAD (Normal) Comments: S = Susceptible; [...] Final report Culture,Comprehensive (Normal) :32 Urinalysis, Office (12251) UA - LEUKOCYTE ESTERASE Moderate (Normal) URINE UROBILINGN NITA TIMED Normal mg/dL (Normal) UA - PROTEIN 100 mg/dL (Normal) UA - PH 6.0 (Normal) UA - BLOOD Hemolyzed Large (Normal) UA - SPECIFIC GRAVITY 1.025 (Normal) UA - KETONES Negative mg/dL (Normal) UA - BILIRUBIN Negative (Normal) UA - GLUCOSE Negative (Normal) :28 Blood Glucose , Office (79497) Blood Glucose , Office 223 (Normal) :10 Urinalysis, Office (60095) UA - BILIRUBIN Small (Normal) UA - BLOOD Hemolyzed Large (Normal) UA - GLUCOSE Small (Normal) Comments: 100 UA - KETONES Negative mg/dL (Normal) UA - LEUKOCYTE ESTERASE Trace (Normal) UA - NITRITE Positive (Normal) UA - PH 5.0 (Normal) UA - PROTEIN 300 mg/dL (Normal) UA - SPECIFIC GRAVITY 1.020 (Normal) URINE UROBILINGN NITA TIMED 2 mg/dL (Normal) 3-Qtk-677520:29 URINE GENESIS CULTURE-NITA COL Comments: PATIENT NOT FASTINGPERFORMED BY: [facility] Pdbfvu3397 Vines RoadAtrium Health [id number] Information: SRC:UR [id number] COUNT (41929) Antimicrobial MIHEAD (Normal) Comments: S = Susceptible; [...] mL (Normal) Urine Final report (Normal) Culture,Comprehensive 7-Qup-307514:31 Urinalysis, Office (28671) UA - BILIRUBIN Large (Normal) UA - BLOOD Hemolyzed Moderate (Normal) UA - GLUCOSE Moderate (Normal) Comments: 250 mg/dL UA - KETONES Small mg/dL (Normal) Comments: 15mg/dL UA - LEUKOCYTE ESTERASE Large (Normal) UA - NITRITE Positive (Normal) UA - PH 5.0 (Normal) UA - PROTEIN 300 mg/dL (Normal) UA - SPECIFIC GRAVITY 1.015 (Normal) URINE UROBILINGN NITA TIMED 8 mg/dL (Normal) 58-Ocj-17855:28 CBCD,SMEAR DIFF RED CELL MORPH SeeNote {NORMAL} [...] (Abnormal) Range: 0.358-3.74 :28 HgA1C , Office (66195) HgA1C , Office 8.3 % (Abnormal) Range: 4.6 - 7.1 :28 Blood Glucose , Office (15417) Blood Glucose , Office 176 (Normal) :24 [...] 200-240 mg/dL Borderline >240 mg/dL High Risk 59-Eig-636881:54 BRAIN/HEAD W/WO CONTRAST Radiology See Note Comments: [...] MDscribed on 10/14/10855 by ITS IMPORTSign by Prsahant Delgadillo MD on 02/09/11 1702 Sign by: Prashant Delgadillo MD 61-Why-62696:44 HgA1C , Office (94196) HgA1C , Office 7.4 % (Abnormal) Range: 4.6 - 7.1 :44 Blood Glucose , Office (87497) Blood Glucose , Office 206 (Normal) :37 [...] Report See Note (Normal) Comments: Exam Number: [id number] AMMOGRAPHY - BILATERAL SCREENING INDICATION:Routine annual screening [...] attaching a ResultCode to this exam. ADDENDUM: [id number] HPBI/MDS Reported By: PRASHANT DELGADILLO :14 HgA1C , Office (91601) HgA1C , Office 7.0 % (Normal) Range: 4.6 - 7.1 :14 Blood Glucose , Office (71729) Blood Glucose , Office 164 (Normal) :30 LASHA DIR SEMI-QL LASHA DIRECT 24 AU/mL (Normal) :30 ANTI-dsDNA AB 10 {IU/mL} (Normal) :30 TSH 6.39 {uIU/mL} (Abnormal) Range: 0.358-3.74 79-Lli-930568:35 C-REACTIVE PROTEIN (68435) Comments: PATIENT NOT FASTINGPERFORMED BY: Wibiya70 AgileSourceKosair Children[facility] Hospital [id number] C-Reactive Protein, Quant 6.5 mg/L (Abnormal) Range: 0.0-4.9 82-Ubh-608422:35 SED RATE ERYTHROCYTE (68703) Comments: PATIENT NOT FASTINGPERFORMED BY: Wibiya70 YG EntertainmentHaywood Regional Medical Center [id number] Sedimentation Rate-Westergren 14 mm/h (Normal) Range: 0-20 59-Lbw-187162:35 RHEUMATOID FACTOR-QUANT (72373) Comments: PATIENT NOT FASTINGPERFORMED BY: Wibiya70 YG EntertainmentHaywood Regional Medical Center [id number] RA Latex Turbid. 7.6 {IU/mL} (Normal) Range: 0.0-13.9 53-Hvk-510449:35 LASHA (ANTINUCLEAR ANTIBODY) Comments: PATIENT NOT FASTINGPERFORMED BY: AIRSISHaywood Regional [facility] Center [id number] (74823) LASHA Direct Positive (Abnormal) :35 T3, FREE (TRIDOTHYRONINE) (59179) Comments: PATIENT NOT FASTINGPERFORMED BY: [facility]6[address] [facility] [id number] Triiodothyronine,Free,Serum 2.8 pg/mL (Normal) Range: 2.0-4.4 :35 T4, FREE (THYROXINE) (72763) Comments: PATIENT NOT FASTINGPERFORMED BY: [address] [id number] T4,Free(Direct) 0.76 ng/dL (Abnormal) Range: 0.82-1.77 :35 Anti-TPO Antibody (68875) Comments: PATIENT NOT FASTINGPERFORMED BY: [place] [address] [facility] [id number] Thyroid Peroxidase (TPO) Ab <6 {IU/mL} (Normal) Range: 0-34 :35 TSH (66124) Comments: PATIENT NOT FASTINGPERFORMED BY: [place] [address] [facility] [id number] TSH 5.630 {uIU/mL} (Abnormal) Range: 0.450-4.500 Comments: Please note reference interval change :35 METABOLIC PANEL, Comments: PATIENT NOT FASTINGPERFORMED BY: [place] [address] [facility] [id number] Information: [id number] COMPREHENSIVE (16655) ALT (SGPT) 55 [iU]/L (Abnormal) Range: 0-40 [...] Glucose, Serum 151 mg/dL (Abnormal) Range: 65-99 02-Rjt-384991:02 GENESIS CULTURE-OTHER (18937) Comments: PATIENT NOT FASTINGPERFORMED BY: [facility]CoThe [facility] FallsKhkxvp5627 [facility] [id number] Information: SRC:THRT [id number] Result 1 Yeast isolated. (Normal) Comments: Moderate growthRequest for further identification must be madewithin 1 week. Upper Respiratory Culture Final report (Normal) 55-Eld-57331:37 Rapid Strep Test, Office (57363) Rapid Strep Test, Office Negative (Normal) 85-Ssk-974608:11 THYROID (HP) Radiology Report See Note (Normal) Comments: Exam Number: [id number] CLINICAL:This is a 45-year-old female patient with [...] 126 mg/dLsuggests DIABETES MELLITUS per A.D.A. criteria. 04-Nfn-47973:41 LIPID CHOL 147 mg/dL (Normal) Comments: <200 mg/dL Rkcwprbcu431-696 mg/dL Borderline>240 mg/dL High Risk HDL 32 mg/dL (Abnormal) Comments: Reference RangeHDL <40 mg/dL Low HDL CholesterolHDL >or= 60 mg/dL High HDL Cholesterol LDL 89 mg/dL (Normal) Range: 0-130 TRIG 128 mg/dL (Normal) Comments: Serum Triglycerides Reference IntervalNormal <150 mg/dLBorderline high 150 - 199 mg/dLHigh 200 - 499 mg/ dLVery High > or = 500 mg/dL VLDL 26 mg/dL (Normal) Range: 5-40 91-Qpi-25907:41 TSH 4.85 {uIU/mL} (Abnormal) Range: 0.358-3.74 52-Ysn-658173:50 URINE GENESIS CULTURE-NITA COL Comments: PATIENT NOT FASTINGPERFORMED BY: CB [facility] Ekjqnw9524 Vines RoadDuHaywood Regional Medical Center [id number] Information: SRC:UR ADD [id number] COUNT (87499) Result 1 Klebsiella pneumoniae Comments: 1,000 Colonies/mL [...] STrimethoprim/Sulfa S Urine Final report (Normal) Culture,Comprehensive 50-Yqb-92896:55 Urinalysis, Office (03820) UA - LEUKOCYTE ESTERASE Small (Normal) UA - NITRITE Negative (Normal) URINE UROBILINGN NITA TIMED Normal mg/dL (Normal) UA - PROTEIN 30 mg/dL (Normal) UA - PH 6.0 (Normal) UA - BLOOD Negative (Normal) UA - SPECIFIC GRAVITY 1.020 (Normal) UA - KETONES Negative mg/dL (Normal) UA - BILIRUBIN Negative (Normal) UA - GLUCOSE Negative (Normal) 8-Dws-808536:37 PET/CT,TUMOR,BASE-THIGH,SUBS Radiology Report See Note (Normal) Comments: Exam Number: [id number] EXAM: Body PET study Head to Mid [...] 44:398P, 2003). w Reported By: ADELA MOLINA 7-Zly-120447:00 PRANEETH+ELPU24 3467 ALBUMIN,U 37.7 % (Normal) ENBSS-6-MDIV,U 3.2 % (Normal) GASTC-7-MAPF,U 7.6 % (Normal) BETA GLOB,U 23.1 % (Normal) GAMMA GLOB,U 28.5 % (Normal) PRANEETH RESULT,U Comment (Normal) Comments: No monoclonality detected. M-SPIKE,UR% SeeNote % (Normal) Comments: Result: Not Observed PROTEIN, U24 62.1 {mg/24_hr} Range: 30.0-150.0 (Normal) PROTEIN,UR 2.3 mg/dL (Normal) Range: 0.0-15.0 3-Mhw-820978:15 C-REACTIVE PROT < 2.90 mg/L (Normal) Range: 0.0-3.0 Comments: C-Reactive Protein (CRP) provides useful information for thediagnosis, therapy and monitoring of inflammatory processesand associated diseases. For the evaluation of Relative Riskfor Cardiovascular Dise ase, a High Sensitivity CRP (HSCRP)should be ordered. 5-Zwg-517435:15 CBCD,SMEAR DIFF PLT EST SeeNote (Normal) Comments: [...] SED RATE 11 mm/h (Normal) Range: 0-20 6-Rdc-554953:15 LDH 197 U/L (Abnormal) Range: 100-190 9-Bko-368173:15 LIPID HDL 30 mg/dL (Abnormal) Comments: Reference [...] CHOL 154 mg/dL (Normal) Comments: <200 mg/dL Yhmuyqlyz100-223 mg/dL Borderline>240 mg/dL High Risk :15 PROT.[id number] NOTE Comment (Normal) Comments: Protein electrophoresis scan will follow via computer,mail, or metal cnc operator delivery.Performed at: [address] [id number] Director: Kamlesh Arana MD ALBUMIN,UR 54.2 % (Normal) VFYEI-7-NRDV,U 1.2 % (Normal) AVXET-8-YRYF,U 9.4 % (Normal) BETA GLOB,U 23.4 % (Normal) GAMMA GLOB,U 11.8 % (Normal) M-SPIKE,U SeeNote % (Normal) Comments: Result: Not Observed PROTEIN,UR 13.6 mg/dL (Normal) Range: 0.0-15.0 :15 SPE [id number] A/G RATIO 1.8 (Normal) Range: 0.7-2.0 GLOBULIN, [...] electrophoresis scan will follow via computer,mail, or metal cnc operator delivery. M-SPIKE SeeNote g/dL (Normal) Comments: Result: Not Observed GAMMA GLOBULIN 0.4 g/dL (Abnormal) Range: 0.5-1.6 ALBUMIN 3.9 g/dL (Normal) Range: 3.2-5.6 ALPHA-1 GLOBUL 0.2 g/dL (Normal) Range: 0.1-0.4 ALPHA-2 GLOBUL 0.7 g/dL (Normal) Range: 0.4-1.2 BETA GLOBULIN 0.9 g/dL (Normal) Range: 0.6-1.3 PROTEIN,TOTAL 6.1 g/dL (Normal) Range: 6.0-8.5 24-Orf-329986:28 BRAIN/HEAD WITHOUT CONTRAST Radiology Report See Note (Normal) Comments: Exam Number: [id number] CT SCAN OF BRAIN HISTORYLytic lesion, lymphoma. [...] for confirmation. Reported By: TRUE NAGEL M.D. 10-Vwz-368379:23 SPINE,CERVICAL WITHOUT CONTRAS Radiology Report See Note (Normal) Comments: Exam Number: [id number] CLINICAL:44 year old female with cervical radiculopathy. [...] tumor involvement. Reported By: SHARYN JASMINE M.D. 17-Chs-845617:50 Blood Glucose , Office (32694) Blood Glucose , Office 105 (Normal) 56-Can-482491:50 HgA1C , Office (26103) HgA1C , Office 6.1 % (Normal) Range: 4.6 - 7.1 57-Fgd-240935:24 URINE GENESIS CULTURE-NITA COL Comments: PATIENT NOT FASTINGPERFORMED BY: [facility] Ojsrnv1185 [facility] [id number] Information: SRC:UR [id number] COUNT (35703) Antimicrobial MIHEAD (Normal) Comments: S = Susceptible; [...] mL (Normal) Urine Final report (Normal) Culture,Comprehensive 64-Jdy-102951:41 Urinalysis, Office (85286) UA - LEUKOCYTE ESTERASE Large (Normal) UA [...] Report See Note (Normal) Comments: Exam Number: [id number] Procedure completed. Please see MEDICAL RECORDS reports in PCI - OP - OP NOTE LET - LETTER. Reported By: BOONE CH M.D. :19 BLOOD GAS, O2 SAT ONLY - SUBSQ Radiology Report See Note (Normal) Comments: Exam Number: [id number] Procedure completed. Please see MEDICAL RECORDS reports in PCI - OP - OP NOTE LET - LETTER. Reported By: BOONE CH M.D. :19 BLOOD GAS, O2 SAT ONLY - SUBSQ Radiology Report See Note (Normal) Comments: Exam Number: [id number] Procedure completed. Please see MEDICAL RECORDS reports in PCI - OP - OP NOTE LET - LETTER. Reported By: BOONE CH M.D. 04-Aug-20096:45 RHC/LHC/CORS/LV Radiology Report See Note (Normal) Comments: Exam Number: [id number] Procedure completed. Please see MEDICAL RECORDS reports [...] 3.5-5.1 NA 135 mmol/L (Abnormal) Range: 136-145 1-Yue-550402:59 CBC HCT 40.9 % (Normal) Range: 37-47 [...] MIXED GRAM POSITIVE ORGANISMS :58 Urinalysis, Office (48138) UA - BILIRUBIN Negative (Normal) UA - BLOOD Negative (Normal) UA - GLUCOSE Negative (Normal) UA - KETONES Negative mg/dL (Normal) UA - LEUKOCYTE ESTERASE Small (Normal) Comments: aw UA - NITRITE Negative (Normal) UA - PH 6.0 (Normal) UA - PROTEIN Negative mg/dL (Normal) UA - SPECIFIC GRAVITY 1.010 (Normal) URINE UROBILINGN NITA TIMED Normal mg/dL (Normal) :53 HgA1C , Office (23382) HgA1C , Office 5.7 % (Normal) Range: 4.6 - 7.1 :53 Blood Glucose , Office (10601) Blood Glucose , Office 133 (Normal) :24 [...] (Normal) Range: 6.4-8.2 :53 HgA1C , Office (54409) HgA1C , Office 10.0 % (Abnormal) Range: 4.6 - 7.1 :53 Blood Glucose , Office (46342) Blood Glucose , Office 410 (Normal) :46 [...] mg/dL VLDL 49 mg/dL (Abnormal) Range: 5-40 2-Nep-077271:46 MICROALB:CRE UR MALB:CREAT 33.3 {mg/g_CRE} (Abnormal) MICROALBUMIN,UR 62.2 mg/L (Normal) UR CREAT 186.7 mg/dL (Normal) 61-Anb-297872:11 LIPID Comments: PATIENT NOT FASTING/DEMANDED TO BE [...] mg/dL VLDL 31 mg/dL (Normal) Range: -40 78-Mai-634535:11 LIVER Comments: PATIENT NOT FASTING/DEMANDED TO BE DRAWN ALT 43 U/L (Normal) Range: 30-65 D BILI 0.07 mg/dL (Normal) Range: 0.00-0.30 T BILI 0.35 mg/dL (Normal) Range: 0.00-1.00 ALB 3.4 g/dL (Normal) Range: 3.4-5.0 ALK P 210 U/L (Abnormal) Range: 50-136 AST 27 U/L (Normal) Range: 15-37 T PROT 6.4 g/dL (Normal) Range: 6.4-8.2 35-Zoi-476991:23 Urinalysis, Office (06311) Comments: done BC UA - BILIRUBIN Negative (Normal) UA - BLOOD Hemolyzed Large (Normal) UA - GLUCOSE Large (Normal) Comments: > 1000mg/dL UA - KETONES Negative mg/dL (Normal) UA - LEUKOCYTE ESTERASE Moderate (Normal) UA - NITRITE Negative (Normal) UA - PH 6.0 (Normal) UA - PROTEIN 30 mg/dL (Normal) UA - SPECIFIC GRAVITY 1.010 (Normal) URINE UROBILINGN NITA TIMED Normal mg/dL (Normal) 75-Tdq-958734:44 MYOCARD PERF SPECT REST/STRESS Radiology Report See Note (Normal) Comments: Exam Number: [id number] MYOCARDIAL PERFUSION SCAN TECHNIQUEThe patient was injected [...] of 37%. Reported By: NOE MORRIS M.D. 83-Imz-40656:39 SPINE, LUMBAR W/W/O CONTRAST Radiology Report See Note (Normal) Comments: Exam Number: [id number] MAGNETIC RESONANCE IMAGING OF THE LUMBAR SPINE [...] other abnormality. Reported By: SUSAN GOMEZ M.D. 49-Jwi-410301:04 CULTURE, URINE URINE CULTURE See Note {CFU/mL} (Normal) Comments: COLONY COUNT 25,000-50,000 ORGANISM 1: MIXED GRAM POSITIVE ORGANISMS 41-Vcq-581506:15 Urinalysis, Office (23869) UA - LEUKOCYTE ESTERASE Small (Normal) Comments: aw UA - NITRITE Negative (Normal) UA - PH 5.0 (Normal) UA - PROTEIN Negative mg/dL (Normal) URINE UROBILINGN NITA TIMED Normal mg/dL (Normal) UA - BILIRUBIN Negative (Normal) UA - BLOOD Negative (Normal) UA - GLUCOSE Negative (Normal) UA - KETONES Negative mg/dL (Normal) UA - SPECIFIC GRAVITY 1.025 (Normal) 89-Tki-532943:09 Blood Glucose , Office (03576) Blood Glucose , Office 231 (Normal) 95-Xmj-785004:09 HgA1C , Office (61163) HgA1C , Office 7.1 % (Normal) Range: 4.6 - 7.1 10-Pyn-018198:42 CBCD,SMEAR DIFF CELLS COUNTED 100 (Normal) HCT [...] 47-70 WBC 4.3 K/mm3 (Abnormal) Range: 4.4-11.0 65-Wyf-776959:42 COMP METABOLIC A/G 1.2 {RATIO} (Normal) Range: [...] for patient's is the eGFRmultiplied by 1.212. [facility] Laboratory uses the abbreviated Modification [...] Disease W/O Kidney Disease>/= 90 Stage One Ublobz44 - 89 Stage Two Suspect Decreased GFR30 [...] T PROT 6.5 g/dL (Normal) Range: 6.4-8.2 73-Qsd-466613:42 LIPID CHOL 182 mg/dL (Normal) Comments: <200 [...] mg/dL VLDL 36 mg/dL (Normal) Range: 5-40 79-Yfc-492226:42 MICROALB:CRE UR MALB:CREAT 35.4 {mg/g_CRE} (Abnormal) MICROALBUMIN,UR 54.7 mg/L (Normal) UR CREAT 154.6 mg/dL (Normal) 40-Xbl-619328:42 TSH 2.57 {uIU/mL} (Normal) Range: 0.34-4.82 :40 CULTURE, URINE URINE CULTURE See Note {CFU/mL} (Normal) Comments: COLONY COUNT 1000-10,000 ORGANISM 1: MIXED GRAM POS & NEG ORGANISMS :36 Urinalysis, Office (99249) UA - BILIRUBIN Negative (Normal) UA - BLOOD Non Hemolyzed Trace (Normal) UA - KETONES Negative mg/dL (Normal) UA - LEUKOCYTE ESTERASE Moderate (Normal) UA - NITRITE Negative (Normal) UA - PH 5.0 (Normal) UA - PROTEIN Negative mg/dL (Normal) UA - SPECIFIC GRAVITY 1.015 (Normal) URINE UROBILINGN NITA TIMED Normal mg/dL (Normal) UA - GLUCOSE Negative (Normal) 54-Gld-745378:20 CULTURE, URINE URINE CULTURE See Note {CFU/mL} (Normal) Comments: COLONY COUNT 25,000-50,000 ORGANISM 1: MIXED GRAM POS & NEG ORGANISMS :12 Urinalysis, Office (28978) UA - BILIRUBIN Negative (Normal) UA - BLOOD Negative (Normal) UA - GLUCOSE Negative (Normal) UA - KETONES Negative mg/dL (Normal) UA - LEUKOCYTE ESTERASE Small (Normal) UA - NITRITE Negative (Normal) UA - PH 6.0 (Normal) UA - PROTEIN Negative mg/dL (Normal) UA - SPECIFIC GRAVITY 1.005 (Normal) URINE UROBILINGN NITA TIMED Normal mg/dL (Normal) 00-Sya-436876:08 CBCD,SMEAR DIFF CELLS COUNTED 100 (Normal) EOS [...] Range: 0.34-4.82 :28 Blood Glucose , Office (75753) Blood Glucose , Office 124 (Normal) :28 HgA1C , Office (66831) HgA1C , Office 6.1 % (Normal) Range: 4.6 - 7.1 :38 CERULOPLAS 1560 21.3 mg/dL (Normal) Range: 17.9-53.3 Comments: Performed At: [facility], [place] [id number] :38 FERRITIN 189 ng/mL (Normal) Range: 8-252 :38 HEP-ABC 828009 HB CORE [id number] SeeNote (Normal) Comments: Result: Negative HB SURF [...] T PROT 6.5 g/dL (Normal) Range: 6.4-8.2 79-Ctm-972362:38 MITOCHN AB 6650 <20.0 {Units} (Normal) Range: 0.0-20.0 Comments: Negative 0.0 - 20.0 Equivocal 20.1 - 24.9 Positive >24.9 . Mitochondrial (M2) Antibodies are found in 90-96% of patients with primary biliary cirrhosis. 79-Gcz-512000:03 GGTP 61 U/L (Abnormal) Range: 5-55 :03 LIVER ALB 3.7 g/dL (Normal) Range: 3.4-5.0 ALK P 161 U/L (Abnormal) Range: 50-136 ALT 35 U/L (Normal) Range: 30-65 AST 18 U/L (Normal) Range: 15-37 D BILI 0.06 mg/dL (Normal) Range: 0.00-0.30 T BILI 0.33 mg/dL (Normal) Range: 0.00-1.00 T PROT 6.5 g/dL (Normal) Range: 6.4-8.2 3-Iem-894580:02 THYROID (HP) Radiology Report See Note (Normal) Comments: Exam Number: [id number] THYROID ULTRASOUND HISTORYThyromegaly. High-resolution, real-time linear images [...] is recommended. Reported By: TRUE NAGEL M.D. 41-Toy-308873:05 Blood Glucose , Office (00654) Blood Glucose , Office 135 (Normal) 40-Qhv-179542:05 HgA1C , Office (06384) HgA1C , Office 5.6 % (Normal) Range: [...] Report See Note (Normal) Comments: Exam Number: [id number] CT BRAIN WITHOUT AND WITH INTRAVENOUS CONTRAST [...] clinically warranted. Reported By: AIDAN MASON M.D. 57-Fcr-932485:30 CBCD Comments: CALL [phone] TO [phone] BASO% 0.8 % (Normal) Range: 0-1 EO% [...] 1+ANISOCYTOSIS WBC 3.8 K/mm3 (Abnormal) Range: 4.4-11.0 54-Cxj-220207:30 COMP METABOLIC Comments: CALL [phone] TO [phone] A/G 1.5 {RATIO} (Normal) Range: 0.9-2.4 ALB [...] :30 LDH 206 U/L (Abnormal) Comments: CALL [phone] TO [phone] Range: 100-190 :30 URIC 5.7 mg/dL (Normal) Comments: CALL [phone] TO [phone] Range: 2.6-6.0 :30 CULT, DP WOUND Comments: [...] mg/dL (Abnormal) Range: 40-230 Comments: Performed At: [address] [id number] :41 LDH 211 U/L (Abnormal) Range: 100-190 [...] IMMUNO P-IMM (Normal) Comments: REPORT SIGNED: MATEO CASTAENDA 01/31/07:25 T3UP Comments: COMMENTS: PT IN CATHLABPrecautions*: NOT APPLICABLE T3 UPTAKE 31 % (Normal) Range: 30-39 T7 (FTI) 2.5 (Normal) Range: 1.4-4.5 :25 T4 THYROXIN 8.1 ug/dL (Normal) Comments: COMMENTS: PT IN CATHLABPrecautions*: NOT APPLICABLE Range: 4.8-13.9 :25 TSH 1.78 {uIU/mL} (Normal) Comments: COMMENTS: PT IN CATHLABPrecautions*: NOT APPLICABLE Range: 0.34-4.82 58-Put-064725:20 BMP Comments: COMMENTS: BED 13 DR FASTPrecautions*: [...] 3.5-5.1 NA 136 mmol/L (Normal) Range: 136-145 56-Qjp-849216:20 CBCD Comments: COMMENTS: BED 13 DR FASTPrecautions*: [...] 47-70 WBC 23.9 K/mm3 (Abnormal) Range: 4.4-11.0 45-Iif-57072:30 AFB C&S [id number] Comments: Precautions*: CHEMO PRECAUTIONSSPECIMEN DESCRIPTION: #2 SAME SOURCE AF[employer] CULT See Note Comments: TESTING PERFORMED AT [facility]. ORIGINAL REPORT ON FILE IN LAB CONTAINS ADDITIONAL TEST SITE INFORMATION. (Normal) CULTURE, ACID FAST NO ACID-FAST BACILLI ISOLATED AFTER 6 WEEKS. AFB SMEAR See Note Comments: [facility] ORIGINAL REPORT ON FILE IN LAB CONTAINS ADDITIONAL TEST SITE INFORMATION. (Normal) ACID FAST BACILLUS SMEAR NO ACID-FAST BACILLI OBSERVED ON SMEAR. 13-D CULT,ALFREDITO See Note Comments: Precautions*: CHEMO PRECAUTIONSSPECIMEN DESCRIPTION: #1 SAME SOURCE ec-2 8482 (Normal) Comments: ` TESTING PERFORMED AT [facility]. ORIGINAL REPORT ON FILE IN LAB CONTAINS ADDITIONAL TEST SITE INFORMATION. 0069 CULTURE, FUNGUS NO YEAST OR MOLD ISOLATED AFTER 4 WEEKS. :30 13-D CYTOLOGY, SeeNote Comments: Result: SEE PATHOLOGY REPORT Specimen submitted to Anatomical Pathology Department for testing. ec-2 BF/CSF (Normal) 0069 :30 48-Dcp-00288:30 FLUID P-FLU (Normal) Comments: OPERATION Not noted [...] DRAWN 07/22/06-TEST MISSED Range: 100-190 :51 SPE [id number] A/G RATIO 1.3 (Normal) Range: 0.7-2.0 ALBUMIN [...] Evidenceof monoclonal protein is not apparent.Performed At: [facility], [place] [id number] M-SPIKE SeeNote (Normal) Comments: Result: Not Observed NOTE: Comment (Normal) Comments: Protein electrophoresis scan will follow via mail orcourier. PROTEIN,TOTAL 6.5 g/dL (Normal) Range: 6.0-8.5 :49 Blood Glucose , Office (88090) Blood Glucose , Office 84 (Normal) :49 HgA1C , Office (19180) HgA1C , Office 6.6 % (Normal) Range: [...] tachycardia Planned Observations CBC with auto diff (66380)Indication: Diabetes mellitus type II, controlled On: 2-Lhe-714082:03 Request LIPID PANEL (50208)Indication: Diabetes mellitus type II, controlled On: :03 Request METABOLIC PANEL, COMPREHENSIVE (78550)Indication: Diabetes mellitus type II, controlled On: : Request HGB A1C (22718)Indication: Diabetes mellitus type II, controlled On: :02 Request TSH (THYROID STIMULATING HORMONE) (49267)Indication: Acquired hypothyroidism On: : Request Metabolic Panel, Basic (44906)Indication: Hyponatremia On: :00 Request TSH (17810)Indication: Diabetes mellitus type II, controlled On: :48 Request Vitamin B-12 (cyanocobalamin) (24603)Indication: B12 deficiency On: :45 Request CBC WITH MANUAL DIFF (20101)Indication: B12 deficiency On: :45 Request T3, FREE (TRIDOTHYRONINE) (30073)Indication: Thyroid nodule On: :48 Request Comments: add to labs already drawn T4, FREE (THYROXINE) (37061)Indication: Thyroid nodule On: :47 Request Comments: add to labs already drawn Digoxin (51168)Indication: Cardiomyopathy On: :44 Request LIPID PANEL (35001)Indication: Mixed hyperlipidemia On: :43 Request TSH (51269)Indication: Acquired hypothyroidism On: :43 Request Vitamin D Hydroxy (20342)Indication: Vitamin D deficiency On: :43 Request LLGGA-LSKDUFGYFLD-FIJCV (71659)Indication: Fatty liver On: :42 Request VITAMIN B-12 (CYANOCOBALAMIN) (07945)Indication: Fatigue On: :42 Request URINALYSIS, W/ MICRO (21951)Indication: Diabetes mellitus type II, controlled On: 37-Jvb-367365:30 Request MICROALBUMIN: CREATININE RATIO (18345) AND (91280)Indication: Diabetes mellitus type II, controlled On: :29 Request CBC with auto diff (69926)Indication: Diabetes mellitus type II, controlled On: 91-Myc-691463:29 Request METABOLIC PANEL, COMPREHENSIVE (58740)Indication: Diabetes mellitus type II, controlled On: 93-Kzt-727266:29 Request HGB A1C (95956)Indication: Diabetes mellitus type II, controlled On: 63-Zuj-371804:29 Request HEPATIC FUNCTION PANEL (92362)Indication: Elevated liver enzymes On: 1-Vcr-081689:38 Request Comments: do in hospital tuesday when get US Metabolic Panel, Comprehensive (14694)Indication: Epigastric pain On: 79-Mlb-690361:54 Request Sed Rate Erythrocyte (33051)Indication: Epigastric pain On: :54 Request CBC, Platelets & Auto Diff (81194)Indication: Epigastric pain On: :54 Request OVA & PARASITE DIR SMEAR (17355)Indication: Diarrhea On: 68-Xdh-091011:53 Request OCCULT BLOOD FECES SCREEN (84825)Indication: Diarrhea On: :53 Request LEUKOCYTE COUNT, FECAL (32172)Indication: Diarrhea On: 81-Eku-601177:53 Request C-DIFFICILE, STOOL (31820)Indication: Diarrhea On: :53 Request GENESIS CULTURE-STOOL (94287)Indication: Diarrhea On: 92-Vkf-838822:53 Request Magnesium (38759)Indication: Fatigue On: 58-Jcp-296015:42 Request Vitamin B-12 (cyanocobalamin) (35815)Indication: Fatigue On: 22-Rgl-133137:41 Request MICROALBUMIN: CREATININE RATIO (86636) AND (05425)Indication: Diabetes mellitus type II, controlled On: 43-Gqb-969251:40 Request LIPID PANEL (70245)Indication: Mixed hyperlipidemia On: 18-Bvj-573533:39 Request CBC W/AUTO DIFF WBC (51503)Indication: Fatty liver On: 79-Yqp-916548:30 Request METABOLIC PANEL, COMPREHENSIVE (97524)Indication: Fatty liver On: 01-Lyh-374832:30 Request Vitamin D Hydroxy (35512)Indication: Vitamin D deficiency On: 50-Rku-286242:30 Request TSH (44481)Indication: Acquired hypothyroidism On: 97-Roy-453549:30 Request Digoxin (01964)Indication: Cardiomyopathy On: 41-Vry-775081:29 Request LIPASE (59514)Indication: Epigastric pain On: :28 Request AMYLASE (30681)Indication: Epigastric pain On: :28 Request URINE GENESIS CULTURE-IDENTIFICATN (10558)Indication: Leukocytes in urine On: 71-Rxh-281384:38 Request MICROALBUMIN: CREATININE RATIO (19471) AND (44993)Indication: Essential hypertension with goal blood pressure less than 130/80 On: :58 Request CBC W/AUTO DIFF WBC (23730)Indication: Essential hypertension with goal blood pressure less than 130/80 On: :58 Request METABOLIC PANEL, COMPREHENSIVE (28968)Indication: Essential hypertension with goal blood pressure less than 130/80 On: :58 Request BIJZH-MDMVGNPJLXT-BRQVD (10595)Indication: Abnormal tumor markers On: :57 Request Vitamin D Hydroxy (38625)Indication: Vitamin D deficiency On: :09 Request LIPOPROTEIN, BLD, BY NMR (67983)Indication: Mixed hyperlipidemia On: :09 Request CBC W/AUTO DIFF WBC (98344)Indication: Diabetes mellitus type II, controlled On: :09 Request METABOLIC PANEL, COMPREHENSIVE (27200)Indication: Diabetes mellitus type II, controlled On: :09 Request Potassium Serum (94530)Indication: Hypopotassemia On: :02 Request UCDEH-WPHQEVVEDFI-QKLOQ (40376)Indication: Fatty liver On: :57 Request MICROALBUMIN: CREATININE RATIO (26175) AND (57015)Indication: Essential hypertension with goal blood pressure less than 130/80 On: :45 Request CBC W/AUTO DIFF WBC (31245)Indication: Essential hypertension with goal blood pressure less than 130/80 On: :45 Request METABOLIC PANEL, COMPREHENSIVE (13162)Indication: Essential hypertension with goal blood pressure less than 130/80 On: :45 Request Vitamin D Hydroxy (53033)Indication: Vitamin D deficiency On: :45 Request TSH (89115)Indication: Acquired hypothyroidism On: :45 Request LIPID PANEL (94223)Indication: Mixed hyperlipidemia On: :45 Request CBC W/AUTO DIFF WBC (71566)Indication: Diabetes mellitus type II, controlled On: :28 Request KWRVW-NDODUIJBRPA-QKXLJ (05784)Indication: Fatty liver On: : Request METABOLIC PANEL, COMPREHENSIVE (19490)Indication: Mixed hyperlipidemia On: : Request LIPOPROTEIN, BLD, BY NMR (70360)Indication: Mixed hyperlipidemia On: : Request Metabolic Panel, Basic (47222)Indication: Hypopotassemia On: :55 Request Comments: 10 days CBC (AUTO) (05030)Indication: Uncontrolled type II diabetes mellitus On: : Request Vitamin D Hydroxy (75046)Indication: Vitamin D deficiency On: 56-Vrz-190435:03 Request MICROALBUMIN: CREATININE RATIO (06461) AND (28753)Indication: Uncontrolled type II diabetes mellitus On: :02 Request METABOLIC PANEL, COMPREHENSIVE (65168)Indication: Essential hypertension with goal blood pressure less than 130/80 On: 73-Tpq-386122:02 Request INMSV-QXBYRPRITBH-QGDKN (75051)Indication: Fatty liver On: : Request LIPID PANEL (54961)Indication: Mixed hyperlipidemia On: : Request TSH (09433)Indication: Thyroid nodule On: : Request CBC W/AUTO DIFF WBC (49005)Indication: Uncontrolled type II diabetes mellitus On: :47 Request METABOLIC PANEL, COMPREHENSIVE (15008)Indication: Uncontrolled type II diabetes mellitus On: :47 Request LIPID PANEL (92411)Indication: Mixed hyperlipidemia On: :47 Request Vitamin D Hydroxy (57729)Indication: Vitamin D deficiency On: :47 Request JWGTJ-FYVZLUPWDAJ-PZCBM (88078)Indication: Fatty liver On: : Request CBC W/AUTO DIFF WBC (14253)Indication: Uncontrolled type II diabetes mellitus On: :26 Request LIPID PANEL (60061)Indication: Mixed hyperlipidemia On: : Request MICROALBUMIN: CREATININE RATIO (10575) AND (12105)Indication: Uncontrolled type II diabetes mellitus On: : Request TSH (17212)Indication: Acquired hypothyroidism On: : Request METABOLIC PANEL, COMPREHENSIVE (49827)Indication: Essential hypertension with goal blood pressure less than 130/80 On: : Request Vitamin D Hydroxy (98506)Indication: Vitamin D deficiency On: : Request CALCIFEDIOL (94402)Indication: Vitamin D deficiency On: 62-Jrd-119446:44 Request Comments: to be done Jun 2015 after done with ergocalciferol URINE GENESIS CULTURE (NITA COL COUNT) (22870)Indication: UTI (lower urinary tract infection) On: 5-Pvd-716267:22 Request LIPID PANEL (62507)Indication: Mixed hyperlipidemia On: 7-Xhe-339904:15 Request CBC W/AUTO DIFF WBC (35622)Indication: Uncontrolled type II diabetes mellitus On: 7-Dcy-291480:14 Request METABOLIC PANEL, COMPREHENSIVE (87951)Indication: Uncontrolled type II diabetes mellitus On: 8-Txl-985423:14 Request TSH (52421)Indication: Acquired hypothyroidism On: 1-Bya-909240:14 Request NDVBG-OXWGTCCMMEH-RBVWG (95640)Indication: Fatty liver On: 3-Hgc-631973:14 Request CBC, Platelets & Auto Diff (50263)Indication: HX, PERSONAL, MALIGNANCY, LYMPHATIC NEC On: 40-Uns-95400:07 Request CBC WITH MANUAL DIFF (48574)Indication: Abnormal glucose tolerance test On: :33 Request MICROALBUMIN: CREATININE RATIO (08579) AND (98036)Indication: Abnormal glucose tolerance test On: :33 Request LIPID PANEL (36157)Indication: Mixed hyperlipidemia On: :31 Request METABOLIC PANEL, COMPREHENSIVE (78984)Indication: Abnormal glucose tolerance test On: :31 Request URINE GENESIS CULTURE-NITA COL COUNT (24562)Indication: Dysuria On: 15-Grw-298338:03 Request RETICULOCYTE COUNT (96488)Indication: Anemia On: :37 Request Iron (14019)Indication: Anemia On: :37 Request Ferritin (57399)Indication: Anemia On: :37 Request CBC (Auto) (19393)Indication: Anemia On: :37 Request CBC, Platelets & Auto Diff (84529)Indication: Fever On: :03 Request Metabolic Panel, Comprehensive (22023)Indication: Fever On: :03 Request HgA1C , Office (32645)Indication: Abnormal glucose tolerance test On: :55 Request CBC WITH MANUAL DIFF (98136)Indication: Abnormal glucose tolerance test On: :53 Request METABOLIC PANEL, COMPREHENSIVE (05030)Indication: Abnormal glucose tolerance test On: :53 Request LIPID PANEL (90954)Indication: Mixed hyperlipidemia On: :53 Request BIHNG-CRJDYIRWCKF-BBGIW (27708)Indication: Fatty liver On: 17-Ewe-685783:53 Request PTT (Activated Partial Thromboplastin Time) (82485)Indication: Fatty liver On: :53 Request PT (Prothrobim Time) (62361)Indication: Fatty liver On: 10-Yyz-972306:53 Request MICROALBUMIN: CREATININE RATIO (64656) AND (98893)Indication: Abnormal glucose tolerance test On: 31-Ezz-339457:49 Request Anti-TPO Antibody (59152)Indication: Acquired hypothyroidism On: :14 Request Comments: 1 month TSH (86674)Indication: Acquired hypothyroidism On: 65-Zli-320607:13 Request Comments: 1 month T4, FREE (THYROXINE) (09641)Indication: Acquired hypothyroidism On: :13 Request Comments: 1 month T3, FREE (TRIDOTHYRONINE) (09813)Indication: Acquired hypothyroidism On: 75-Yfo-911136:13 Request Comments: 1 month CBC WITH MANUAL DIFF (97896)Indication: Abnormal glucose tolerance test On: :38 Request METABOLIC PANEL, COMPREHENSIVE (03830)Indication: Abnormal glucose tolerance test On: :38 Request LIPID PANEL (46483)Indication: Mixed hyperlipidemia On: :38 Request MICROALBUMIN: CREATININE RATIO (10274) AND (74624)Indication: Abnormal glucose tolerance test On: 19-Wtc-860545:56 Request CBC WITH MANUAL DIFF (00704)Indication: Elevated LFTs On: 35-Hpt-498641:56 Request METABOLIC PANEL, COMPREHENSIVE (54564)Indication: Elevated LFTs On: 99-Exa-893759:56 Request LIPID PANEL (58662)Indication: Mixed hyperlipidemia On: 08-Wta-278934:56 Request TSH (53734)Indication: Acquired hypothyroidism On: :56 Request CBC WITH MANUAL DIFF (55209)Indication: Essential hypertension with goal blood pressure less than 130/80 On: :34 Request TSH (44947)Indication: Acquired hypothyroidism On: :34 Request METABOLIC PANEL, COMPREHENSIVE (00750)Indication: Fatty liver On: :33 Request LIPID PANEL (99037)Indication: Mixed hyperlipidemia On: 04-Oct-20119:33 Request MICROALBUMIN: CREATININE RATIO (52737) AND (55596)Indication: Uncontrolled type II diabetes mellitus On: :46 Request TSH (02093)Indication: Acquired hypothyroidism On: :46 Request LIPID PANEL (68063)Indication: Mixed hyperlipidemia On: :45 Request METABOLIC PANEL, COMPREHENSIVE (50097)Indication: Elevated LFTs On: :45 Request HgA1C , Office (36236)Indication: Uncontrolled type II diabetes mellitus On: :28 Request URINE GENESIS CULTURE-NITA COL COUNT (84608)Indication: Cystitis, acute On: :43 Request URINE GENESIS CULTURE-IDENTIFICATN (17552)Indication: Dysuria On: :10 Request CBC WITH MANUAL DIFF (31912)Indication: Headache On: :56 Request METABOLIC PANEL, COMPREHENSIVE (47564)Indication: Headache On: :56 Request LIPID PANEL (82730)Indication: Mixed hyperlipidemia On: :56 Request TSH (06640)Indication: Acquired hypothyroidism On: 62-Mrc-441914:56 Request METABOLIC PANEL, COMPREHENSIVE (63225)Indication: Uncontrolled type II diabetes mellitus On: :28 Request HEPATIC FUNCTION PANEL (37247)Indication: Mixed hyperlipidemia On: :28 Request LIPID PANEL (78876)Indication: Mixed hyperlipidemia On: :28 Request LIPID PANEL (71046)Indication: Mixed hyperlipidemia On: :39 Request MICROALBUMIN: CREATININE RATIO (80840) AND (34332)Indication: Uncontrolled type II diabetes mellitus On: :39 Request CBC WITH MANUAL DIFF (92700)Indication: Essential hypertension with goal blood pressure less than 130/80 On: :39 Request METABOLIC PANEL, COMPREHENSIVE (23280)Indication: Elevated LFTs On: :39 Request TSH (84744)Indication: Acquired hypothyroidism On: :36 Request TSH (85776)Indication: Thyroid nodule On: 02-Vtb-874227:20 Request METABOLIC PANEL, COMPREHENSIVE (98891)Indication: Elevated LFTs On: :19 Request LIPID PANEL (24066)Indication: Mixed hyperlipidemia On: :19 Request C-REACTIVE PROTEIN (54274)Indication: Abnormal findings on diagnostic imaging of other specified body structures On: 36-Zzi-007650:02 Request SED RATE ERYTHROCYTE (68461)Indication: Abnormal findings on diagnostic imaging of other specified body structures On: 49-Wiz-740858: Request LDH (LD) (LACTATE DEHYDROGENASE) (47767)Indication: Abnormal findings on diagnostic imaging of other specified body structures On: 79-Yfn-063625: Request Urine Protein Electrophoresis (UPEP) (90679)Indication: Abnormal findings on diagnostic imaging of other specified body structures On: 31-Gwo-989392: Request Serum Protein Electrophoresis (SPEP) (48467)Indication: Abnormal findings on diagnostic imaging of other specified body structures On: 33-Fmt-933257: Request METABOLIC PANEL, COMPREHENSIVE (58086)Indication: Diabetes mellitus type II, controlled On: :19 Request LIPID PANEL (90954)Indication: Mixed hyperlipidemia On: :19 Request URINE GENESIS CULTURE-NITA COL COUNT (02075)Indication: Dysuria On: 01-Iox-754865:58 Request HEPATIC FUNCTION PANEL (44605)Indication: Elevated LFTs On: :18 Request LIPID PANEL (11757)Indication: Mixed hyperlipidemia On: 61-Ckl-739729:17 Request MICROALBUMIN: CREATININE RATIO (95195) AND (21790)Indication: Uncontrolled type II diabetes mellitus On: :47 Request CBC WITH MANUAL DIFF (03211)Indication: Uncontrolled type II diabetes mellitus On: 0-Iip-096531:47 Request METABOLIC PANEL, COMPREHENSIVE (65633)Indication: Uncontrolled type II diabetes mellitus On: :47 Request HEPATIC FUNCTION PANEL (81844)Indication: Elevated LFTs On: 2-Ksa-254331:45 Request LIPID PANEL (58977)Indication: Mixed hyperlipidemia On: 6-Kfr-939020:44 Request HEPATIC FUNCTION PANEL ([id number])Indication: Fatty liver On: 3-Zqy-119314:30 Request LIPID PANEL (95460)Indication: Mixed hyperlipidemia On: 6-Jfp-788142:30 Request URINE GENESIS CULTURE (NITA COL COUNT) (59023)Indication: Low back pain potentially associated with radiculopathy On: 87-Dlk-820191:03 Request MICROALBUMIN: CREATININE RATIO (79761) AND (83551)Indication: Dysuria On: 45-Hhs-122084:05 Request LIPID PANEL (61360)Indication: Dysuria On: 53-Ztx-345087:05 Request TSH (18422)Indication: Dysuria On: 87-Tuc-373202:05 Request METABOLIC PANEL, COMPREHENSIVE (67356)Indication: Dysuria On: 41-Yfp-632858:04 Request CBC WITH MANUAL DIFF (43057)Indication: Dysuria On: 57-Sgl-853456:04 Request URINE GENESIS CULTURE-NITA COL COUNT (99071)Indication: Dysuria On: 21-Xzx-421432:45 Request URINE GENESIS CULTURE (NITA COL COUNT) (44361)Indication: Dysuria On: 26-Svd-742413:17 Request METABOLIC PANEL, COMPREHENSIVE (15207)Indication: Fatty liver On: 44-Vbs-22177:58 Request Magnesium (55659)Indication: Palpitations On: :51 Request TSH (03245)Indication: Palpitations On: 85-Gzd-57926:51 Request METABOLIC PANEL, COMPREHENSIVE (94343)Indication: Palpitations On: :51 Request CBC WITH MANUAL DIFF (73789)Indication: Palpitations On: 19-Adk-24226:51 Request GGT (Gamma Glutamyl Transferase) (39111)Indication: Elevated LFTs On: 93-Smb-020924:16 Request HEPATIC FUNCTION PANEL (30073)Indication: Elevated LFTs On: 82-Nsu-460614:16 Request VITAMIN B-12 (CYANOCOBALAMIN) (59564)Indication: Fatigue On: :23 Request MICROALBUMIN URINE QUANT (03918)Indication: Diabetes mellitus type II, controlled On: 42-Kua-07607:22 Request TSH (49651)Indication: Fatigue On: 77-Edm-56399:22 Request CBC WITH MANUAL DIFF (10050)Indication: Diabetes mellitus type II, controlled On: 94-Ggm-40456:22 Request METABOLIC PANEL, COMPREHENSIVE (91934)Indication: Diabetes mellitus type II, controlled On: 82-Qgz-10917:22 Request LIPID PANEL (15188)Indication: Mixed hyperlipidemia On: 65-Etr-88817:22 Request HEPATIC FUNCTION PANEL (62525)Indication: Mixed hyperlipidemia On: 46-Ltj-881184:48 Request LIPID PANEL (30016)Indication: Mixed hyperlipidemia On: 24-Jaz-637740:48 Request Comments: in 3 mos Planned Encounters Medical; [facility] 1 Month FU - On: 30-Aug-2018 11:00 [facility] Fast DO, Sangeetha A Fast DO, Sangeetha A Planned Procedures Flu Vaccine (Quadrivalent) 91799Wu: On: 21-Jul-2018 Intent Fast DO, Sangeetha A Fast DO, Sangeetha A SCREENING DIGITAL TOMOSYNTHESIS OF On: 21-Jul-2018 Intent BREAST (94355)By: Fast DO, Sangeetha A Fast DO, Sangeetha A B 12 Injection, 1000 mcg (J3420)By: On: 31-May-2018 Intent Fast DO, Sangeetha A Fast DO, Sangeetha A Comments: Lot#[id number] EXP:[id number] given:left deltoid Given By: clarita albright ABN signed CT - Abdomen (IV Contrast Needed)By: On: 31-May-2018 Intent Fast DO, Sangeetha A Fast DO, Sangeetha A Doppler Ultrasound OtherBy: Fast DO, On: 19-May-2018 Intent Sangeetha A Fast DO, Sangeetha A Comments: left arm ULTRASOUND OF LIVER (63838)By: On: 24-Feb-2018 Intent Jennifer Rios MD PFT - CompleteBy: Fast DO, Sangeetha A On: 21-Oct-2017 Intent Fast DO, Sangeetha A Comments: at [facility] SCREENING DIGITAL TOMOSYNTHESIS OF On: 21-Oct-2017 Intent BREAST (67594)By: Fast DO, Sangeetha A Comments: end of oct Fast DO, Sangeetha A EsophagramBy: Fast DO, Sangeetha A Fast On: 21-Oct-2017 Intent DO, Sangeetha A Comments: with 12 mm tablet ELECTROCARDIOGRAM, COMPLETE (ECG) On: 21-Oct-2017 Intent (75278)By: Fast DO, Sangeetha A Fast DO, Sangeetha A Flu Vaccine (Quadrivalent) 55128Dj: On: 07-Jun-2017 Intent Fast DO, Sangeetha A [...] DO, Sangeetha A DEXA SCAN AXIAL SKELETON (32671)By: On: 16-Aug-2016 Intent Fast DO, Sangeetha A Fast DO, Sangeetha A MAMMOGRAM, SCREENING, BOTH BREAST On: 16-Aug-2016 Intent (61478)By: Fast DO, Sangeetha A Fast DO, Sangeetha A ELECTROCARDIOGRAM, COMPLETE (ECG) On: 16-Aug-2016 Intent (11839)By: Fast DO, Sangeetha A Fast DO, Sangeetha A Flu Vaccine (Quadrivalent) 74853Er: On: 16-Aug-2016 Intent Fast DO, Sangeetha A Fast DO, Sangeetha A Comments: FLUlot: [id number]:02/09site:Lt deltoidroute:IMdose:.5mlHEIDI MCLEOD ADMINISTRATION OF INFLUENZA VIRUS On: 16-Aug-2016 Intent VACCINE (G0008)By: Fast DO, Sangeetha A Fast DO, Sangeetha A Ultrasound - ThyroidBy: Fast DO, On: 10-Nov-2015 Intent Sangeetha A Fast DO, Sangeetha A Ultrasound - LiverBy: Fast DO, Sangeetha On: 10-Nov-2015 Intent A Fast DO, Sangeetha A Flu Vaccine (Quadrivalent) [id number]: On: 08-Aug-2015 Intent Fast DO, Sangeetha A Fast DO, Sangeetha A Comments: Lot #[id number]-L dltd, IMDose prefilled syringegiven by:SIMONE Jasso and ABN signed MAMMOGRAM, SCREENING, BOTH BREAST On: 08-Aug-2015 Intent (58815)By: Fast DO, Sangeetha A Fast DO, Sangeetha A Ultrasound - ThyroidBy: Fast DO, On: 08-Aug-2015 Intent Sangeetha A Fast DO, Sangeetha A Ultrasound - LiverBy: Fast DO, Sangeetha On: 08-Aug-2015 Intent A Fast DO, Sangeetha A ADMINISTRATION OF PNEUMOCOCCAL On: 01-Nov-2014 Intent VACCINE (G0009)By: Fast DO, Sangeetha A Fast DO, Sangeetha A PNEUM VAC ADLT/IMUMNOSPR, SBC/INTRM On: 01-Nov-2014 Intent (23797)By: Fast DO, Sangeetha A Fast DO, Comments: Lot:[id number]:02/29/16Dose:0.5mgRoute:imSite:l armGiven By:BATSHEVA signed Sangeetha A Ultrasound - LiverBy: Fast DO, Sangeetha On: 05-Jul-2014 Intent A Fast DO, Sangeetha A BILATERAL MAMMOGRAMS (88013)By: Fast On: 05-Jul-2014 Intent DO, Sangeetha A Fast DO, Sangeetha A Ultrasound - ThyroidBy: Fast DO, On: 05-Jul-2014 Intent Sangeetha A Fast DO, Sangeetha A ADMINISTRATION OF INFLUENZA VIRUS On: 05-Jul-2014 Intent VACCINE (G0008)By: Fast DO, Sangeetha A Comments: Influenzalot:[id number]:03/25/2015dose:0.5mLRoute: IMlocation:R armgiven by:marika Fast DO, Sangeetha A FLU VAC, SPLIT, >3 YEARS, INTRAMUSC On: 05-Jul-2014 Intent (87794)By: Arpan Irvin DOa A Fast DO, Sangeetha A INFUSION, NORMAL SALINE SOLUTION , On: 15-Apr-2014 Intent 250 CC (J7050)By: Angelina Winn CNP Rocephon Injection, 1 Gm (J0696)By: On: 15-Apr-2014 Intent Angelina Winn CNP Comments: Rocephin 1gmLot #[id number]. [id number] in R hand x 1 stick with [...] SPLIT, >3 YEARS, INTRAMUSC On: 27-Jul-2013 Intent (68447)By: Tavon DAVIS, Sangeetha A Fast DO, Sangeetha A Eprescribed prescriptions (G8553)By: On: 04-Jun-2013 Intent Delisa Melendez LPN SPECIMEN HANDLING/TRANSPORT On: 04-Jun-2013 Intent (16090)By: Delisa Melendez LPN INFUSION, NORMAL SALINE SOLUTION , On: 15-Feb-2013 Intent 1000 CC (Special Coverage Comments: 500 cc Instructions Apply. See MCM: 2049) (J7030)By: Jennifer Rios MD HYDRATION IV INFUSION, INIT On: 15-Feb-2013 Intent (16838)By: Jennifer Rios MD Ultrasound - ThyroidBy: Fast DO, On: 19-Jan-2013 Intent Sangeetha A Fast DO, Sangeetha A MAMMOGRAM, SCREENING, BOTH BREASTS On: 19-Jan-2013 Intent (13301)By: Fast DO, Sangeetha A Fast DO, Comments: due in january Sangeetha A Eprescribed prescriptions (G8553)By: On: 19-Jan-2013 Intent Isabella Grigsby Pulse Oximetry (33623)By: Seb, On: 29-Sep-2012 Intent Isabella Comments: 98% [...] MAMMOGRAM, SCREENING, BOTH BREASTS On: 24-Jan-2012 Intent (91681)By: Fast DO, Sangeetha A Fast DO, Sangeetha A TDAP VACCINE >7 IM (37537)By: Fast On: 04-Oct-2011 Intent DO, Sangeetha A Fast DO, Sangeetha A Comments: Lot:[id number]:08/12/13Amt:prefilledRoute:IMSite:right deltGiven By: NATALEE Spence Aerosol Treatment ([id number])By: Blanca On: 26-Aug-2011 Intent Jennifer KING Pulse Oximetry ([id number])By: Blanca On: 26-Aug-2011 Intent Jennifer KING SPECIMEN HANDLING/TRANSPORT On: 23-Jul-2011 Intent ([id number])By: Delisa Melendez LPN VAC, SPLIT, >3 YEARS, INTRAMUSC On: 05-Jul-2011 Intent ([id number])By: Isabella Grigsby Comments: Lot #[id number]/20/12Site-left deltoidgiven by: Lisa Bello LPN Ultrasound - ThyroidBy: Fast DO, On: 05-Jul-2011 Intent Sangeetha A Fast DO, Sangeetha A MAMMOGRAM, SCREENING, BOTH BREASTS On: 05-Jul-2011 Intent ([id number])By: Fast DO, Sangeetha A Fast DO, Sangeetha A ADMINISTRATION OF INFLUENZA VIRUS On: 05-Jul-2011 Intent VACCINE ([id number])By: Isabella Grigsbycribed prescriptions ([id number])By: On: 04-Jun-2011 Intent [address] DO CT - Brain/HeadBy: Fast DO, Sangeetha A On: 07-Oct-2010 Intent Fast DO, Sangeetha A Comments: with and without contrast MAMMOGRAM, SCREENING, BOTH BREASTS On: 26-Jun-2010 Intent ([id number])By: Fast DO, Sangeetha A Fast DO, Sangeetha A ADMINISTRATION OF INFLUENZA VIRUS On: 26-Jun-2010 Intent VACCINE ([id number])By: Fast DO, Sangeetha A Fast DO, Sangeetha A FLU VAC, SPLIT, >3 YEARS, INTRAMUSC On: 26-Jun-2010 Intent ([id number])By: Fast DO, Sangeetha A Fast DO, Comments: Lot:[id number] 4PExp:12/2010Dose:0.5mlRoute:IMSite:Left DeltoidGiven by: HEIDI Alberto A Ultrasound - ThyroidBy: Fast DO, On: 07-Jan-2010 Intent Sangeetha A Fast DO, Sangeetha A CT - Spine/CervicalBy: Fast DO, On: 15-Dec-2009 Intent Sangeetha A Fast DO, Sangeetha A Comments: 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 -- need to rule out Pulse Oximetry ([id number])By: Fast DO, On: 09-Jul-2009 Intent Sangeetha A Fast DO, Sangeetha A Spirometry ([id number])By: Fast DO, On: 10-Jul-2009 Intent Sangeetha A Fast DO, Sangeetha A Comments: good effort and curve- mild restriciton Radiology - Chest- PA and LatBy: On: 09-Jul-2009 Intent Fast DO, Sangeetha A Fast DO, Sangeetha A Pulse Oximetry ([id number])By: Fast DO, On: 10-Jul-2009 Intent Sangeetha A Fast DO, Sangeetha A Comments: 98 FLU VAC, SPLIT, >3 YEARS, INTRAMUSC On: 09-Jul-2009 Intent ([id number])By: Isabella Grigsby Comments: Lot #[id number]-right deltoidDose0.5mlgiven by Juventino Nye LPN IMMUNIZ ADMNIN, 1 VAC, SNGL/COMBO On: 09-Jul-2009 Intent ([id number])By: Isabella Grigsby EKG ([id number])By: Fast DO, Sangeetha A On: 10-Oct-2008 Intent [...] ADMNIN, 1 VAC, SNGL/COMBO On: 10-Jul-2008 Intent ([id number])By: Fast DO, Sangeetha A Fast DO, Sangeetha A FLU VAC, SPLIT, >3 YEARS, INTRAMUSC On: 10-Jul-2008 Intent ([id number])By: Fast DO, Sangeetha A Fast DO, Comments: injection given in left deltoid, pt tolerated welllot # [id number] Sangeetha A Holter Monitor 24 hrsBy: Fast DO, On: 10-Jul-2008 Intent Sangeetha A Fast DO, Sangeetha A EKG ([id number])By: Marlene Reddy On: 10-Jul-2008 Intent Comments: ekg [...] using tylenol and will go back to [place] if need be for shot-sugar fine-n foot [...] off metformin and lisinopril andthen went to [place] for couple weeks then had multiple falls sent back to hospital and transferred [facility] for [facility] weeks then to [facility] had lots of pt- and [...] Patient has been compliant with instructions. Current wi End: 01-Mar-2017 9:26 dication use: no side [...] anxiety and depression. Note for Physical exam: [facility] Wellness Physical- she is down 107 [...] from Need for immunizati on against influenza), [facility] WELLNESS, Encounter for screening mammogram for [...] Reason for hospitalization abdominal pain (Went to [facility] on 02/28/15). Hospitalization details include: [...] previously evaluated by a primary physician (at [facility]- Dr Reyes ). Presentation included lid [...] is helping her mood- has followup in [place] may 04 - her weight down 20 [...] sees heart failure doctor next week at [facility] - -- mood ebs and [...] the problems -goes back to [facility] on tuesday and psych in 2 weeksEncounter [...] or less). 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
--- OUTSIDE RECORDS SUMMARY | 2018-10-21 23:58 | XMS RPT_ITS ---
:1965 Author Organization OHIP Support Name Relationship Address Phone D Unavailable Unavailable Unavailable HOOSIER, BILL/MORRO Unavailable [address] + [place] [address] SEAN PARVEEN Unavailable [address] + [place] [address] D Unavailable Unavailable Unavailable HOOSIER, BILL/MORRO Unavailable [address] + [place] [address] SEAN PARVEEN Unavailable [address] + [place] [address] D Unavailable Unavailable Unavailable HOOSIER, BILL/MORRO Unavailable [address] + [place] [address] SEAN PARVEEN Unavailable [address] + [place] [address] D Unavailable Unavailable Unavailable HOOSIER, BILL/MORRO Unavailable [address] + [place] [address] SEAN PARVEEN Unavailable [address] + [place] [address] D Unavailable Unavailable Unavailable HOOSIER, BILL/MORRO Unavailable [address] + [place] [address] SEAN PARVEEN Unavailable [address] + [place] [address] D Unavailable Unavailable Unavailable HOOSIER, BILL/MORRO Unavailable [address] + [place] [address] SEAN PARVEEN Unavailable [address] + [place] [address] D Unavailable Unavailable Unavailable HOOSIER, BILL/MORRO Unavailable [address] + [place] [address] HOOSIER, PARVEEN Unavailable [address] + [place] [address] D Unavailable Unavailable Unavailable HOOSIER, BILL/MORRO Unavailable [address] + [place] [address] HOOSIER, PARVEEN Unavailable [address] + [place] [address] D Unavailable Unavailable Unavailable HOOSIER, BILL/MORRO Unavailable [address] + [place] [address] HOOSIER, PARVEEN Unavailable [address] [place] [address] DR + [place] [address] D Unavailable Unavailable Unavailable HOOSIER, BILL/MORRO Unavailable [address] + [place] [address] HOOSIER, PARVEEN Unavailable [address] [place] [address] DR + [place] [address] D Unavailable Unavailable Unavailable HOOSIER, BILL/MORRO Unavailable [address] [place] [address] DR + [place] [address] HOOSIER, PARVEEN Unavailable [address] [place] [address] DR + [place] [address] D Unavailable Unavailable Unavailable HOOSIER, BILL/MORRO Unavailable [facility] + [place] [address] HOOSIER, PARVEEN Unavailable [address] [place] [address] DR + [place] [address] D Unavailable Unavailable Unavailable HOOSIER, BILL/MORRO Unavailable [address] [place] [address] DR + [place] [address] HOOSIER, PARVEEN Unavailable [address] + [place] [address] D Unavailable Unavailable Unavailable HOOSIER, BILL/MORRO Unavailable [address] + [place] [address] HOOSIER, PARVEEN Unavailable [address] [place] [address] DR + [place] [address] D Unavailable Unavailable Unavailable HOOSIER, BILL/MORRO Unavailable [address] + [place] [address] HOOSIER, PARVEEN Unavailable [address] + [place] [address] D Unavailable Unavailable Unavailable HOOSIER, BILL/MORRO Unavailable Unavailable + ., [place] . HOOSIER, GRAG Unavailable . + ., [place] . D Unavailable Unavailable Unavailable HOOSIER, BILL/MORRO Unavailable Unavailable + HOOSIER, GRAG Unavailable Unavailable + D Unavailable Unavailable Unavailable HOOSIER, BILL/MORRO Unavailable Unavailable + ., [place] . HOOSIER, GRAG Unavailable Unavailable + ., [place] . D Unavailable Unavailable Unavailable HOOSIER, BILL/MORRO Unavailable Unavailable + ., [place] . HOOSIER, GRAG Unavailable Unavailable + ., [place] . D Unavailable Unavailable Unavailable HOOSIER, BILL/MORRO Unavailable Unavailable + SEAN GRAG Unavailable Unavailable + D Unavailable Unavailable Unavailable HOOSIER, BILL/MORRO Unavailable Unavailable + SEAN GRAG Unavailable Unavailable + D Unavailable Unavailable Unavailable Hoosier, Bill/Morro Unavailable Unavailable + [place] [address] Hoosier, Parveen Unavailable Unavailable + [place] [address] D Unavailable Unavailable Unavailable Hoosier, Bill/Omrro Unavailable Unavailable + [place] [address] Hoosier, Parveen Unavailable Unavailable + [place] [address] D Unavailable Unavailable Unavailable Hoosier, Bill/Morro Unavailable Unavailable + [place] [address] Hoosier, Parveen Unavailable Unavailable + [place] [address] D Unavailable Unavailable Unavailable HOOSIER, BILL/MORRO Unavailable Unavailable + [place] [address] HOOSIER, PARVEEN Unavailable Unavailable + [place] [address] D Unavailable Unavailable Unavailable HOOSIER, BILL/MORRO Unavailable Unavailable + [place] [address] HOOSIER, PARVEEN Unavailable Unavailable + [place] [address] D Unavailable Unavailable Unavailable Hoosier, Bill/Morro Unavailable Unavailable + [place] [address] Hoosier, Parveen Unavailable Unavailable + [place] [address] D Unavailable Unavailable Unavailable Hoosier, Bill/Morro Unavailable Unavailable + [place] [address] Hoosier, Parveen Unavailable Unavailable + [place] [address] D Unavailable Unavailable Unavailable Hoosier, Bill/Morro Unavailable Unavailable + [place] [address] Hoosier, Parveen Unavailable Unavailable + [place] [address] D Unavailable Unavailable Unavailable Hoosier, Bill/Morro Unavailable Unavailable + [place] [address] Hoosier, Parveen Unavailable Unavailable + [place] [address] D Unavailable Unavailable Unavailable HOOSIER, BILL/MORRO Unavailable Unavailable + [place] [address] HOOSIER, PARVEEN Unavailable Unavailable + [place] [address] D Unavailable Unavailable Unavailable HOOSIER, BILL/MORRO Unavailable Unavailable + [place] [address] HOOSIER, PARVEEN Unavailable Unavailable + [place] [address] D Unavailable Unavailable Unavailable HOOSIER, BILL/MORRO Unavailable Unavailable + [place] [address] HOOSIER, PARVEEN Unavailable Unavailable + [place] [address] D Unavailable Unavailable Unavailable Hoosier, Bill/Morro Unavailable Unavailable + [place] [address] Hoosier, Parveen Unavailable Unavailable + [place] [address] D Unavailable Unavailable Unavailable HOOSIER, BILL/MORRO Unavailable Unavailable + [place] [address] HOOSIER, PARVEEN Unavailable Unavailable + [place] [address] D Unavailable Unavailable Unavailable HOOSIER, BILL/MORRO Unavailable Unavailable + [place] [address] HOOSIER, PARVEEN Unavailable Unavailable + [place] [address] D Unavailable Unavailable Unavailable HOOSIER, BILL/MORRO Unavailable Unavailable + [place] [address] HOOSIER, PARVEEN Unavailable Unavailable + [place] [address] D Unavailable Unavailable Unavailable HOOSIER, BILL/MORRO Unavailable Unavailable + [place] [address] HOOSIER, PARVEEN Unavailable Unavailable + [place] [address] D Unavailable Unavailable Unavailable HOOSIER, BILL/MORRO Unavailable Unavailable + [place] [address] HOOSIER, PARVEEN Unavailable Unavailable + [place] [address] D Unavailable Unavailable Unavailable HOOSIER, BILL/MORRO Unavailable Unavailable + [place] [address] HOOSIER, PARVEEN Unavailable Unavailable + [place] [address] D Unavailable Unavailable Unavailable HOOSIER, BILL/MORRO Unavailable Unavailable + [place] [address] HOOSIER, PARVEEN Unavailable Unavailable + [place] [address] D Unavailable Unavailable Unavailable Hoosier, Bill/Morro Unavailable Unavailable + [place] [address] Hoosier, Parveen Unavailable Unavailable + [place] [address] D Unavailable Unavailable Unavailable Hoosier, Bill/Morro Unavailable Unavailable + [place] [address] Hoosier Parveen Unavailable Unavailable + [place] [address] D Unavailable Unavailable Unavailable Hoosier, Bill/Morro Unavailable Unavailable + [place] [address] Hoosier Parveen Unavailable Unavailable + [place] [address] D Unavailable Unavailable Unavailable HOOSIER, BILL/MORRO Unavailable Unavailable + HOOSIER PARVEEN Unavailable Unavailable + D Unavailable Unavailable Unavailable HOOSIER, BILL/MORRO Unavailable Unavailable + [place] [address] HOOSIER PARVEEN Unavailable Unavailable + [place] [address] D Unavailable Unavailable Unavailable HOOSIER, BILL/MORRO Unavailable Unavailable + [place] [address] HOOSIER, PARVEEN Unavailable Unavailable + [place] [address] D Unavailable Unavailable Unavailable HOOSIER, BILL/MORRO Unavailable Unavailable + [place] [address] HOOSIER, PARVEEN Unavailable Unavailable + [place] [address] D Unavailable Unavailable Unavailable HOOSIER, BILL/MORRO Unavailable NA + [place], [place] D Unavailable Unavailable Unavailable HOOSIER, BILL/MORRO Unavailable Unavailable + [place] [address] HOOSIER, PARVEEN Unavailable Unavailable + [place] [address] D Unavailable Unavailable Unavailable HOOSIER, BILL/MORRO Unavailable . + [place] [address] HOOSIER, PARVEEN Unavailable . + [place] [address] D Unavailable Unavailable Unavailable HOOSIER, BILL/MORRO Unavailable . + [place] [address] HOOSIER, PARVEEN Unavailable . + [place] [address] D Unavailable Unavailable Unavailable HOOSIER, BILL/MORRO Unavailable . + [place] [address] PARVEEN ASHRAF Unavailable . + [place] [address] D Unavailable Unavailable Unavailable HOOSIER, BILL/MORRO Unavailable Unavailable + PARVEEN ASHRAF Unavailable Unavailable + D Unavailable Unavailable Unavailable HOOSIER, BILL/MORRO Unavailable Unavailable + [place] [address] PARVEEN ASHRAF Unavailable Unavailable + [place] [address] D Unavailable Unavailable Unavailable HOOSIER, BILL/MORRO Unavailable Unavailable + PARVEEN ASHRAF Unavailable Unavailable + D Unavailable Unavailable Unavailable HOOSIER, BILL/MORRO Unavailable Unavailable + PARVEEN ASHRAF Unavailable Unavailable + D Unavailable Unavailable Unavailable HOOSIER, BILL/MORRO Unavailable Unavailable + PARVEEN ASHRAF Unavailable Unavailable + D Unavailable Unavailable Unavailable HOOSIER, BILL/MORRO Unavailable NA + [place], [place] D Unavailable Unavailable Unavailable HOOSIER, BILL/MORRO Unavailable NA + [place], [place] Care Team Providers Name Role Phone Simeon Gresham Attending Unavailable Fast, Sangeetha Primary Care Unavailable Linda Allen Referring Unavailable Jing, Boone Attending Unavailable Fast, Sangeetha Referring Unavailable Fast, Sangeetha Primary Care Unavailable Danica Pickering Attending Unavailable Fast, Sangeetha Referring Unavailable Fast, Sangeetha Primary Care Unavailable Jing, Boone Attending Unavailable Fast, Sangeetha Referring Unavailable Jing, Parker Attending Unavailable Jing, Boone Referring Unavailable Fast, Sangeetha Primary Care Unavailable Linda Bai Attending Unavailable Linda Bai Referring Unavailable Fast, Sangeetha Primary Care Unavailable Jing, Parker Attending Unavailable Maya Méndez Referring Unavailable Fast, Sangeetha Primary Care Unavailable Galdino, Lior Attending Unavailable Jing, Boone Referring Unavailable Fast, Sangeetha Primary Care Unavailable Jing, Parker Consulting Unavailable RaheelDanica Attending Unavailable Roof, Oscar H Attending Unavailable Fast, Sangeetha Referring Unavailable RaheelAfshane Attending Unavailable Fast, Sangeetha Referring Unavailable Fast, Sangeetha Primary Care Unavailable Fast, Sangeetha Attending Unavailable Fast, Sangeetha Primary Care Unavailable Prah, Simeon Attending Unavailable Prah, Simeon Referring Unavailable Fast, Sangeetha Primary Care Unavailable Sole, Zoraida Attending Unavailable Alejandro, Linda Referring Unavailable Fast, Sangeetha Primary Care Unavailable Prah, Simeon Consulting Unavailable Fast, Sangeetha Attending Unavailable Fast, Sangeetha Referring Unavailable Fast, Sangeetha Primary Care Unavailable Vellanki, Maya Consulting Unavailable Bonebrittny, Jennifer Attending Unavailable Fast, Sangeetha Primary Care Unavailable Fast, Sangeetha Attending Unavailable Fast, Sangeetha Primary Care Unavailable Fast, Sangeetha Primary Care Unavailable Jopperi, Monique Admitting Unavailable Demetris, Patrick Consulting Unavailable Sementi, Kitty Attending Unavailable Jing, Parker Consulting Unavailable Alcira Aec Attending Unavailable Jopperi, Monique Admitting Unavailable Jopperi, Monique Attending Unavailable Fast, Sangeetha Primary Care Unavailable Paintsil, Ray Consulting Unavailable Danica Pickering Attending Unavailable Fast, Sangeetha Referring Unavailable Jopperi, Monique Admitting Unavailable Paintsil, Ray Attending Unavailable Fast, Sangeetha Primary Care Unavailable Demetris, Patrick Consulting Unavailable Paintsil, Ray Consulting Unavailable Roof, Oscar H Attending Unavailable Fast, Sangeetha Referring Unavailable Jopperi, Monique Admitting Unavailable Paintsil, Ray Attending Unavailable Fast, Sangeetha Primary Care Unavailable Demetris, Patrick Consulting Unavailable Paintsil, Ray Consulting Unavailable Jopperi, Monique Admitting Unavailable Paintsil, Ray Attending Unavailable Fast, Sangeetha Primary Care Unavailable Demetris, Patrick Consulting Unavailable Paintsil, Ray Consulting Unavailable Jopperi, Monique Admitting Unavailable Paintsil, Ray Attending Unavailable Fast, Sangeetha Primary Care Unavailable Demetris, Patrick Consulting Unavailable Paintsil, Ray Consulting Unavailable Jopperi, Monique Admitting Unavailable Sementi, Kitty Attending Unavailable Fast, Sangeetha Primary Care Unavailable Demetris, Patrick Consulting Unavailable Sementi, Kitty Consulting Unavailable Jopperi, Monique Admitting Unavailable Sementi, Kitty Attending Unavailable Fast, Sangeetha Primary Care Unavailable Demetris, Patrick Consulting Unavailable Sementi, Kitty Consulting Unavailable Fast, Sangeetha Attending Unavailable Fast, Sangeetha Referring Unavailable Fast, Sangeetha Primary Care Unavailable Fast, Sangeetha Attending Unavailable Fast, Sangeetha Referring Unavailable Fast, Sangeetha Primary Care Unavailable Jewel Fernandez Consulting Unavailable Fast, Sangeetha Attending Unavailable Fast, Sangeetha Primary Care Unavailable Fast, Sangeetha Attending Unavailable Fast, Sangeetha Referring Unavailable Fast, Sangeetha Primary Care Unavailable Mimi Turner Attending Unavailable Fast, Sangeetha Referring Unavailable Abe, Red S. Attending Unavailable Abe, Red S. Referring Unavailable Fast, Sangeetha Primary Care Unavailable Jing, Boone Attending Unavailable Fast, Sangeetha Referring Unavailable Fast, Sangeetha Attending Unavailable Fast, Sangeetha Attending Unavailable Fast, Sangeetha Referring Unavailable Fast, Sangeetha Primary Care Unavailable Danica Pickering Attending Unavailable Fast, Sangeetha Referring Unavailable Mimi Turner Attending Unavailable Fast, Sangeetha Referring Unavailable Oscar Chan Attending Unavailable Chan, Oscar Attending Unavailable Chan, Oscar Attending Unavailable Jing, Boone Attending Unavailable Fast, Sangeetha Referring Unavailable Fast, Sangeetha Primary Care Unavailable Patrick Willson Attending Unavailable Monique Tamez Referring Unavailable Chan, Oscar Attending Unavailable Chan, Oscar Referring Unavailable Fast, Sangeetha Primary Care Unavailable Dejuan Bacon Attending Unavailable Chan, Oscar Primary Care Unavailable Marissa Wakefield Attending Unavailable Jing, Parker Attending Unavailable Jing, Parker Attending Unavailable Fast, Sangeetha Attending Unavailable Fast, Sangeetha Referring Unavailable Fast, Sangeetha Primary Care Unavailable Roof, Oscar H Attending Unavailable Fast, Sangeetha Referring Unavailable Fast, Sangeetha Primary Care Unavailable Simeon Gresham Attending Unavailable Linda Allen Referring Unavailable Fast, Sangeetha Primary Care Unavailable Simeon Gresh[place] Consulting Unavailable Danica Pickering Attending Unavailable Fast, Sangeetha Referring Unavailable Fast, Sangeetha Primary Care Unavailable Roof, Oscar H Attending Unavailable Fast, Sangeetha Referring Unavailable Roof, Oscar H Attending Unavailable Roof, Oscar H Referring Unavailable Fast, Sangeetha Primary Care Unavailable Roof, Oscar H Attending Unavailable Fast, Sangeetha Referring Unavailable Fast, Sangeetha Attending Unavailable Fast, Sangeetha Referring Unavailable Fast, Sangeetha Primary Care Unavailable Fast, Sangeetha Primary Care Unavailable Roof, Oscar H Attending Unavailable Roof, Oscar H Referring Unavailable Abe, Red S. Attending Unavailable Abe, Red S. Referring Unavailable Fast, Sangeetha Primary Care Unavailable Fast, Sangeetha Attending Unavailable Fast, Sangeetha Referring Unavailable Fast, Sangeetha Primary Care Unavailable KESHAWN, AGAPITO Admitting Unavailable LINDA SCALES Attending Unavailable LOLY VARGAS Consulting Unavailable PARIS ALICEA MD Primary Care Unavailable PARIS ALICEA MD Attending Unavailable LUIS ANGELOUPARIS Mcfadden MD Admitting Unavailable Fast DO, Sangeetha A Attending Unavailable Fast DO, Sangeetha A Referring Unavailable Fast DO, Sangeetha A Consulting Unavailable KESHAWN, AGAPITO Admitting Unavailable Fast, Corrie A. Primary Care Unavailable LINDA SCALES Attending Unavailable KAROL QUINTERO Consulting Unavailable Bebeto Oconnell Consulting Unavailable LEONARD RUEDA Consulting Unavailable LU, NEGRITO Consulting Unavailable ALICIA, ADEL Consulting Unavailable PROBLEMS PROBLEMS DATE TYPE CONDITION / CODE ATTENDING STATUS SOURCE 10/03/2018 Unknown I50.22 - Chronic Turner, Active [facility] systolic (congestive) [facility] heart failure / Hospital I50.22(ICD-10) Repository 10/02/2018 Unknown E87.5 - Hyperkalemia Fast, Sangeetha Active [facility] / E87.5(ICD-10) [facility] Repository 09/18/2018 Unknown R06.09 - Other forms Turner, Active [facility] of dyspnea / [facility] R06.09(ICD-10) Hospital Repository 09/18/2018 Unknown I42.8 - Other Turner, Active [facility] cardiomyopathies / [facility] I42.8(ICD-10) Hospital Repository 09/27/2018 Unknown R06.02 - Shortness of Jing, Parker Active [facility] breath / Community R06.02(ICD-10) Hospital Repository 07/28/2018 Unknown E87.1 - [facility] Oscar Active [facility] Hypo-osmolality and Community hyponatremia / Hospital E87.1(ICD-10) Repository 07/19/2018 Unknown E11.9 - Type 2 Fast, Sangeetha Active [facility] diabetes mellitus Community without complications Hospital / E11.9(ICD-10) Repository 07/19/2018 Unknown E53.8 - Deficiency of Fast, Sangeetha Active [facility] other specified B Community group vitamins / Hospital E53.8(ICD-10) Repository 07/17/2018 Unknown E87.6 - Hypokalemia / Oscar Todd Active [place] E87.6(ICD-10) [facility] Repository 07/14/2018 Unknown D64.9 - Anemia, Oscar Todd Active [facility] unspecified / Community D64.9(ICD-10) Hospital Repository 06/05/2018 Unknown C83.30 - Diffuse Prah, Simeon Active [facility] large B-cell Community lymphoma, unspecified Hospital site / C83.30(ICD-10) Repository 05/25/2018 Unknown R60.0 - Localized Fast, Sangeetha Active [place] edema / R60.0(ICD-10) [facility] Repository 05/05/2018 Admitting Anemia, unspecified / LATOUF, BUTROS Active [facility] D649(ICD-10) [facility] Repository 05/05/2018 Principle Anemia, unspecified / LATOUF, BUTROS Active [facility] Diagnosis D649(ICD-10) [facility] Repository 05/05/2018 Secondary Persons encountering LATOUF, BUTROS Active [facility] Diagnosis health services in [facility] other specified Hospital circumstances / Repository Z7689(ICD-10) 05/05/2018 Secondary Personal history of LATOUF, BUTROS Active [facility] [place] Diagnosis non-Hodgkin lymphomas [facility] / Z8572(ICD-10) Hospital Repository 05/05/2018 Secondary Hypokalemia / LATOUF, BUTROS Active [facility] [place] Diagnosis E876(ICD-10) [facility] Repository 04/27/2018 Active Heart disease, STONE, LINDA Active Person unspecified / [facility] Other I51.9(ICD-10) [place] Repository 04/27/2018 Active Chronic combined STONE, LINDA Active Person systolic (congestive) [facility] Other and diastolic [place] (congestive) heart Repository failure / I50.42(ICD-10) 04/27/2018 Active Acidosis / STONE, LINDA Active Person E87.2(ICD-10) [facility] Other [place] Repository 04/07/2018 Active Traumatic subdural STONE, LINDA Active Person hemorrhage with loss [facility] Other of consciousness of [place] unspecified duration, Repository initial encounter / S06.5X9A(ICD-10) 04/07/2018 Active Altered mental STONE, LINDA Active Person status, unspecified / [facility] Other R41.82(ICD-10) [facility] Repository 04/27/2018 Admitting Unknown / STONE, LINDA Active [facility] diagnosis UNK(Unknown) [facility] Repository 03/31/2018 Unknown Z95.810 - Presence of Jing, Boone Active [facility] automatic Community (implantable) cardiac Hospital defibrillator / Repository Z95.810(ICD-10) 03/31/2018 Unknown I43 - Cardiomyopathy Jing, Boone Active [facility] in diseases Community classified elsewhere Hospital / I43(ICD-10) Repository 03/31/2018 Unknown I82.622 - Acute Jing, Boone Active [facility] embolism and Community thrombosis of deep Hospital veins of left upper Repository extremity / I82.622(ICD-10) 03/31/2018 Unknown I24.8 - Other forms Jing, Boone Active [facility] of acute ischemic Community heart disease / Hospital I24.8(ICD-10) Repository 03/20/2018 Unknown E87.2 - Acidosis / Sementi, Active [facility] E87.2(ICD-10) [facility] Repository 03/14/2018 Unknown M79.7 - Fibromyalgia Sementi, Active [facility] / M79.7(ICD-10) [facility] Repository 01/26/2018 Unknown K76.0 - Fatty (change Fast, Sangeetha Active [facility] of) liver, not Community elsewhere classified Hospital / K76.0(ICD-10) Repository 01/26/2018 Unknown I10 - Essential Fast, Sangeetha Active [facility] (primary) Community hypertension / Hospital I10(ICD-10) Repository PROCEDURES PROCEDURES No Procedure Records FoundRESULTS RESULTS BONE SCAN WHOLE Observed: 10/10/2018 Status: F Source: [place] BODY 10:49 AM [facility] REPOSIT[facility] Imaging Services [address] [place] [id number] Bone Scan Whole Body MR#: [id number] Acct: [id number] Name: IFEOMA ASHRAF Rep #: [id number] : 1965 F 53 From: Cristi Gabriel DO PCP: Sangeetha Irvin DO Status: REG CLI Study: Bone Scan Whole Body Date of Exam: 10/10/18 Exam# [id number] Ordering Dr: Sangeetha Irvin DO CLINICAL: 43-year-old female with reported history of lymphoma with apparent radiographic abnormalities involving the left acetabulum and bilateral proximal femurs. WHOLE BODY 99m Tc MDP RADIONUCLIDE BONE SCINTIGRAPHY COMPARISON: CT of the abdomen-pelvis report 09/15/2018 FINDINGS: Following the intravenous administration of 21.0 mCi of 99m Tc MDP, whole body bone images reveal: 1. Increased radiopharmaceutical concentration is identified in the sternoclavicular and glenohumeral compartments of the left shoulder, acromioclavicular components of both shoulders, posterior midline sacrum, the right elbow, bilateral knees, the dorsal talotibial compartment of the left ankle, dorsal medial compartments of both ankles, the left forefoot. 2. Enhanced uptake is visualized in the sacrum-coccyx with a component of central photopenia as well as decreased counts statistics defined at the level of the sixth-ninth thoracic vertebra and in the midline posteriorly. 3. The remaining skeletal structures are scintigraphically unremarkable with normal-appearing renal images and urinary bladder activity identified. NM/Bone Scan Whole Body IMPRESSION: 1. The increase in radiopharmaceutical concentration identified in the bilateral shoulders, posterior upper midline sacrum, right elbow, bilateral knees and ankles, the left forefoot is most consistent with degenerative arthritis. 2. Photopenic abnormalities defined in the sacrum-coccyx and mid thoracic spine may be attributed to previous radiation therapeutic intervention if historically appropriate. 3. Meticulous attention paid to the bilateral proximal femurs and left acetabulum demonstrate no evidence of abnormal increased radiopharmaceutical concentration to correlate with the radiographic abnormalities defined on CT of the abdomen-pelvis report dated 09/15/2018. Electronically Signed: Cristi Gabriel DO at 20:15 EST Tel , Service support , CC: Sangeetha Irvin DO Supervisor Laundry: Signed CARDIOLOGY VISIT Observed: 10/04/2018 Status: F Source: [place] REPORT 7:24 AM [facility] REPOSITORY [facility] [address] [place] [address]. [address] [place] [address] OFFICE VISIT Date of Service: 10/03/18 MR#: [id number] Acct: [id number] Name: IFEOMA ASHRAF Rep #: [id number] : 1965 Provider: Mimi Turner Age/Sex: 53/F [place] [facility] Status: Signed HPI HPI Chief Complaint: cardiomyopathy Details: IFEOMA ASHRAF, is a 53 F who presents to the office today for a cardiovascular follow-up. She does have a history of nonischemic cardiomyopathy with an ejection fraction of 15%, ICD placement, pulmonary hypertension, obstructive sleep apnea, mitral and tricuspid regurgitation, diabetes, DVT and a history of diffuse B-cell lymphoma. Pt was seen in the office on 09/18 for worsening SOB. She was started on Entresto. She has lost 7 lbs since then She sts that she notes her breathing is better and she feels like she can catch her breath. She is not orthopneic. She is now on home O2. This was started this past week. She does not have any edema. She does not have any lightheadedness/dizziness. She does not have any syncope. Intake Vital Signs10/03/18 Body Mass Index (BMI) 31.3 10/03/18 Height 5 ft 6 in Intake Visit Reasons: 2 wk f/up; ICD @ 2:30p [employer] Supervisor Required: No Accompanied by: None Is patient in pain?: No Allergies amitriptyline Adverse Reaction (Severe, Verified 10/03/18 14:54) Nightmares naproxen sodium [From Aleve] Adverse Reaction (Severe, Verified 10/03/18 14:54) Swelling Sulfa (Sulfonamide Antibiotics) Adverse Reaction (Intermediate, Verified 10/03/18 14:54) Rash Latex, Natural Rubber Adverse Reaction (Mild, Verified 10/03/18 14:54) Other Medications Digoxin 125 mcg PO DAILY 03/07/18 [History Confirmed 10/03/18] Omeprazole [Prilosec] 20 mg PO DAILY 03/07/18 [History Confirmed 10/03/18] Simvastatin [Zocor] 10 mg PO QHS 03/07/18 [History Confirmed 10/03/18] Apixaban [Eliquis] 5 mg PO BID 04/06/18 [History Confirmed 10/03/18] Carvedilol [Coreg (Beta Stephanie)] 3.125 mg PO BID 04/06/18 [History Confirmed 10/03/18] Levothyroxine [Synthroid] 75 mcg PO DAILY 07/12/18 [History Confirmed 10/03/18] sennosides 8.6 mg tablet 8.6 mg PO QDAY PRN tab 04/10/18 [History Confirmed 10/03/18] Handicap Placard #1 ea 05/17/18 [Rx Confirmed 10/03/18] gabapentin 100 mg capsule 100 mg PO QHS cap 05/31/18 [History Confirmed 10/03/18] haloperidol 1 mg tablet 1 mg PO BID 05/31/18 [History Confirmed 10/03/18] melatonin 3 mg tablet 9 mg PO QHS tab 05/31/18 [History Confirmed 10/03/18] mirtazapine 15 mg tablet 15 mg PO DAILY #30 tab 05/31/18 [Rx Confirmed 10/03/18] lamotrigine 150 mg tablet 150 mg PO DAILY tab 07/14/18 [History Confirmed 10/03/18] sacubitril 24 mg-valsartan 26 mg tablet 1 tab PO BID #60 tab 09/18/18 [Rx Confirmed 10/03/18] spironolactone 50 mg tablet 50 mg PO DAILY 09/18/18 [History Confirmed 10/03/18] furosemide 40 mg tablet See Rx Instructions PO .COMPLEX tab 10/03/18 [History Confirmed 10/03/18] Ejection fraction %: 15 to 19 PFSH Medical History Chronic systolic congestive heart failure, NYHA class 3 (Chronic) Dyspnea on exertion (Acute) Nonischemic cardiomyopathy (Chronic) Iron deficiency (Chronic) Subdural hematoma (Chronic) Nonrheumatic mitral (valve) insufficiency (Chronic) Non-rheumatic tricuspid valve insufficiency (Chronic) History of non-Hodgkin's lymphoma (Chronic) Anemia (Chronic) Syncope (Resolved) FAN (acute kidney injury) (Resolved) Deep vein thrombosis (DVT) of brachial vein of left upper extremity (Resolved) Acute metabolic encephalopathy (Chronic) Cardiogenic shock (Resolved) Demand ischemia (Resolved) Pulmonary hypertension (Chronic) Type 2 diabetes mellitus without complications (Chronic) Cardiomyopathy in other diseases classified elsewhere (Chronic) Shortness of breath (Chronic) Diffuse large B-cell lymphoma (Chronic) Bilateral caract surgery (Acute) Decomp laminectomy to remove T6-7 mass (Acute) Depression (Acute) Fibromyalgia (Acute) History of hysteroscopy (Acute) Left thyroid aspiration (Acute) Replacement of generator for debrillator (Acute) Sleep apnea (Acute) Thyroid nodule (Acute) Surgical History Presence of implantable cardioverter-defibrillator (ICD) (Chronic 11/10/17) Heel spur surgery (Resolved) History of cataract extraction (Resolved) History of cholecystectomy (Resolved) History of stem cell transplant (Resolved) Family History Father CVA (cerebral vascular accident) Diabetes Hypertension Mother Hypertension Brother Diabetes Hypertension Social History Smoking Status: Never smoker alcohol intake: never caffeine: No ROS Const Const: Positive for weakness and fatigue; negative for fever(s) or headache(s) Eyes Eyes: Negative for blind spots, loss of peripheral vision or transient loss of vision ENT ENT: Negative for headache(s) Cardio Chest Pain: No Palpitations: No Edema: None Muscle aches with walking: None Resp Respiratory: Positive for SOB with activity; negative for SOB at rest, SOB orthopnea\SOB lying down or Cough GI GI: Positive for nausea; negative vomiting, heartburn or vomiting blood/hematemesis : Negative for hematuria Musc Musc: Negative for muscle aches/ myalgia Neuro Neuro: Positive for weakness; negative for headache(s) Aniceto Hematologic/Lymphatic: Negative for easy bleeding Endo Endo: Positive for fatigue Cardiology Exam Const Appearance: cooperative, no acute distress, well developed and other (wearing o2 , WC) Orientation: alert, awake and oriented x3 Head Head: normocephalic and atraumatic Mouth: moist mucous membranes Eyes General: appearance normal, both eyes and all related structures Conjunctivae: conjunctivae normal Pupils: PERRL EOM: EOM intact bilaterally Neck Neck: normal visual inspection, no lymphadenopathy and no JVD Carotids: Negative bruit Neck Mass: Negative Neck mass Chest Chest inspection: normal inspection of the chest and symmetric chest movement Auscultation: Bilateral: Clear to Auscultation Cardio Palpation: normal PMI Rate: regular rate Rhythm: regular rhythm Heart sounds: S1 normal and S2 normal; negative rub, gallop or murmur GI GI: normal to inspection, soft, no hepatosplenomegaly and bowel sounds present; negative tender Neuro General: alert, awake, oriented x3, CN's II-XI intact bilaterally and moves all extremities Extremities Pulses: Normal: Right Posterior Tibial Pulse, Left Posterior Tibial Pulse, Right Radial Pulse, Left Radial Pulse Lower Extremity Edema: None: Bilateral Psych Psychological: normal affect Assessment AND Plan 1. Chronic systolic congestive heart failure, NYHA class 3 I50.22 Plan - LISETTE Sutton Patient symptoms have improved since starting Entresto. She will continue with this medication. She did have an episode of hyperkalemia. Blood counts were rechecked potassium has normalized. We will have her stop her potassium, continue with her current dose of furosemide and Spironolactone. She will also continue with her Entresto. We will repeat her BMP in 2 weeks. Patient was asked to call her office with an update on how she is feeling in a month. If her blood pressures are higher would like to try to increase dose of Entresto. If we do this we may need to decrease her dose of diuretics as patient's blood pressure is on the low side. Patient Instructions - LISETTE Sutton Stop your potassium and repeat your blood work (non fasting) in 2 weeks. Orders Orders: 2. Acute deep vein thrombosis (DVT) of brachial vein of left upper extremity I82.622 Plan - LISETTE Sutton This is being followed by primary care. She remains on her anticoagulant. 3. Presence of implantable cardioverter-defibrillator (ICD) Z95.810 Generator change 11/13 @ [facility] Dr. Ahmadi Plan - LISETTE Sutton ICD is functioning appropriately. Pt has not had any discharges from their device, they will continue with regular scheduled ICD interrogations. Plan Detail Other Medications Discontinued: potassium chloride ER (Klor-Con M) [id number] mEq (2 x 20 mEq) PO DAILY 30 tabs 0RF d Reason: Order Completed Additional Comments - LISETTE Sutton The above patient was discussed with Dr. Ch, he agrees with plan of care. Thank you for allowing us to participate in patient's plan of care, if you have any questions please do not hesitate to call. This note was generated using a voice recognition system and there may be incorrect words, spelling or punctuation errors that were not noted when reviewing the office note prior to saving. Follow Up 10/03/18 (keep as is) Coding Level of Care Code Off vis,est,level 3 Diagnoses Chronic systolic congestive heart failure, NYHA class 3 I50.22 Acute deep vein thrombosis (DVT) of brachial vein of left upper extremity I82.622 Chronicity: acute Presence of implantable cardioverter-defibrillator (ICD) Z95.810 Coding Level of Care Code Off vis,est,level 3 Diagnoses Chronic systolic congestive heart failure, NYHA class 3 I50.22 Acute deep vein thrombosis (DVT) of brachial vein of left upper extremity I82.622 Chronicity: acute Presence of implantable cardioverter-defibrillator (ICD) Z95.810 Supplemental Info Supplemental Information Echocardiogram in 08/2018 demonstrated: Moderately dilated left ventricle. The estimated ejection fraction is 15 %. The global longitudinal strain is severely abnormal. Moderately severe (3+) mitral valve insufficiency. Pulmonary artery systolic pressure is 40 mmHg. Small pericardial effusion. There are no echocardiographic indications of cardiac tamponade. Stage 3 diastolic dysfunction. Compared to previous study, the left ventricular systolic function is the same.. Diagnostics Echocardiogram 09/06/18 Pacemaker Check 10/03/18 10/03/18 1650 <Electronically signed by Mimi KNOX> Date Mimi KNOX 10/04/18 7400<Electronically signed by Boone Ch MD> Cosigner Signature: Date (if applicable) Boone Ch MD CC: Sangeetha Irvin DO PACEMAKER CHECK Observed: 10/04/2018 Status: F Source: [place] 7:24 AM [facility] RE[facility]IT[facility] [address] [place], [place] [address] Pacemaker Check Date of Service: 10/03/18 1451 MR#: [id number] Acct: [id number] Name: IFEOMA ASHRAF Rep #: [id number] : 1965 From: Danica Pickering Age/Sex: 53/F [place] [facility] [place]: Signed Billing Codes ICD Device Billing: ICD Dev Prog Eval, Single 10/03/18 1453 <Electronically signed by Danica Pickering > Date Danica Pickering 10/04/18 0724<Electronically signed by Boone Ch MD> Cosigner Signature: Date (if applicable) Boone Ch MD CC: POTASSIUM Collected: 10/02/2018 Status: F Source: [place] 9:25 AM [facility] REPOS[facility] Order Comment: CA ADDED 10/02/18 TYPE CODE TESTS RESULT OUT OF RANGE REFERENCE UNITS LAB L501.5600 3.5-5.1 mmol/L Normal K 4.2 Performed By: #### L501.5600 #### [facility] [address] [place], [address] CALCIUM,TOTAL Collected: 10/02/2018 Status: F Source: [place] 9:25 AM [facility] REPOSITORY Order Comment: CA ADDED 10/02/18 TYPE CODE TESTS RESULT OUT OF RANGE REFERENCE UNITS LAB L501.2200 8.5-10.1 mg/dL Normal CA 9.5 Performed By: #### L501.2200 #### [facility] [address] [place], [address] CARDIOLOGY VISIT Observed: 10/02/2018 Status: F Source: [place] RE[place] 6:44 AM [facility] REPOSITORY [facility] [address] [place] [address] OFFICE VISIT Date of Service: 09/18/18 MR#: [id number] Acct: [id number] Name: SEANIFEOAM S Rep #: [id number] : 1965 Provider: Mimi Turner Age/Sex: 53/F [place] [facility] [place] Status: Signed HPI HPI Details: IFEOMA ASHRAF, is a 53 F who presents to the office today for a cardiovascular follow-up. She was seen by her primary care doctor and was requested that she see our office sooner. Her appointment was moved up. She does have a history of nonischemic cardiomyopathy with an ejection fraction of 15%, ICD placement, pulmonary hypertension, obstructive sleep apnea, mitral and tricuspid regurgitation, diabetes, DVT and a history of diffuse B-cell lymphoma. Pt sts that since her hospital stay she has become more progressively SOB. She notes SOB with any activity. We had seen her in the past with continued adjusting of her diuretic. When she would follow up she would feel better but then become worse again. She does not have any chest pain. She does not have any positional dizziness. She does not have any near syncope/syncope. She does not have any edema. Intake Vital Signs09/18/18 Height 5 ft 6 in 09/18/18 Weight: 194 lb 09/18/18 Body Mass Index (BMI) 31.3 09/18/18 Blood Pressure 118/62 09/18/18 Blood Pressure Location Lt brachial Intake Visit Reasons: Moved up per Dr Irvin [employer] Supervisor Required: No Is patient in pain?: No Allergies amitriptyline Adverse Reaction (Severe, Verified 09/18/18 10:36) Nightmares naproxen sodium [From Aleve] Adverse Reaction (Severe, Verified 09/18/18 10:36) Swelling Sulfa (Sulfonamide Antibiotics) Adverse Reaction (Intermediate, Verified 09/18/18 10:36) Rash Latex, Natural Rubber Adverse Reaction (Mild, Verified 09/18/18 10:36) Other Medications Digoxin 125 mcg PO DAILY 03/07/18 [History Confirmed 09/18/18] Folic Acid 1 mg PO BIDCM 03/07/18 [History Confirmed 09/18/18] Omeprazole [Prilosec] 20 mg PO DAILY 03/07/18 [History Confirmed 09/18/18] Simvastatin [Zocor] 10 mg PO QHS 03/07/18 [History Confirmed 09/18/18] Apixaban [Eliquis] 5 mg PO BID 04/06/18 [History Confirmed 09/18/18] Carvedilol [Coreg (Beta Stephanie)] 3.125 mg PO BID 04/06/18 [History Confirmed 09/18/18] Levothyroxine [Synthroid] 75 mcg PO DAILY 04/06/18 [History Confirmed 09/18/18] sennosides 8.6 mg tablet 8.6 mg PO QDAY PRN tab 04/10/18 [History Confirmed 09/18/18] Handicap Placard #1 ea 05/17/18 [Rx Confirmed 09/18/18] gabapentin 100 mg capsule 100 mg PO QHS cap 05/31/18 [History Confirmed 09/18/18] haloperidol 1 mg tablet 1 mg PO BID 05/31/18 [History Confirmed 09/18/18] melatonin 3 mg tablet 9 mg PO QHS tab 05/31/18 [History Confirmed 09/18/18] mirtazapine 15 mg tablet 15 mg PO DAILY #30 tab 05/31/18 [Rx Confirmed 09/18/18] lamotrigine 150 mg tablet 150 mg PO DAILY tab 07/14/18 [History Confirmed 09/18/18] potassium chloride ER 20 mEq tablet,extended release(part/cryst) 40 meq PO DAILY #30 tab 07/31/18 [Rx Confirmed 09/18/18] furosemide 40 mg tablet See Rx Instructions PO .COMPLEX tab 09/18/18 [History] sacubitril 24 mg-valsartan 26 mg tablet 1 tab PO BID #60 tab 09/18/18 [Rx Confirmed 09/18/18] spironolactone 50 mg tablet 50 mg PO DAILY 09/18/18 [History Confirmed 09/18/18] PFSH Medical History Chronic systolic congestive heart failure, NYHA class 3 (Chronic) Dyspnea on exertion (Acute) Nonischemic cardiomyopathy (Chronic) Iron deficiency (Chronic) Subdural hematoma (Chronic) Nonrheumatic mitral (valve) insufficiency (Chronic) Non-rheumatic tricuspid valve insufficiency (Chronic) History of non-Hodgkin's lymphoma (Chronic) Anemia (Chronic) Syncope (Resolved) FAN (acute kidney injury) (Resolved) Deep vein thrombosis (DVT) of brachial vein of left upper extremity (Resolved) Acute metabolic encephalopathy (Chronic) Cardiogenic shock (Resolved) Demand ischemia (Resolved) Pulmonary hypertension (Chronic) Type 2 diabetes mellitus without complications (Chronic) Cardiomyopathy [...] History Presence of implantable cardioverter-defibrillator (ICD) (Chronic 11/10/17) History of cholecystectomy (Acute) History of stem cell transplant (Acute) Family History Father CVA (cerebral vascular accident) Diabetes Hypertension Mother Hypertension Brother Diabetes Hypertension Social History Smoking Status: Unknown if ever smoked ROS Const Const: Positive for weakness and fatigue; negative for fever(s) or headache(s) Eyes Eyes: Negative for blind spots, loss of peripheral vision or transient loss of vision ENT ENT: Positive for dizziness; negative for headache(s), tinnitus or Nosebleed/epistaxis Cardio Chest Pain: No Palpitations: No Edema: None Muscle aches with walking: None Resp Respiratory: Positive for SOB with activity and SOB orthopnea\SOB lying down; negative for SOB at rest or Cough GI GI: Positive for nausea; negative vomiting, heartburn or vomiting blood/hematemesis : Negative for hematuria Musc Musc: Negative for muscle aches/ myalgia Neuro Neuro: Positive for weakness and dizziness; negative for headache(s), near syncope, syncope, lightheadedness or orthostatic symptoms Aniceto Hematologic/Lymphatic: Negative for easy bleeding Endo Endo: Positive for fatigue Cardiology Exam Const Appearance: cooperative, no acute distress and well developed Orientation: alert, awake and oriented x3 Head Head: normocephalic and atraumatic Mouth: moist mucous membranes Eyes General: appearance normal, both eyes and all related structures Conjunctivae: conjunctivae normal Pupils: PERRL EOM: EOM intact bilaterally Neck Neck: normal visual inspection, no lymphadenopathy and no JVD Carotids: Negative bruit Neck Mass: Negative Neck mass Chest Chest inspection: normal inspection of the chest and symmetric chest movement Auscultation: Bilateral: Clear to Auscultation Cardio Palpation: normal PMI Rate: regular rate Rhythm: regular rhythm Heart sounds: S1 normal and S2 normal; negative rub, gallop or murmur GI GI: normal to inspection, soft, no hepatosplenomegaly and bowel sounds present; negative tender Neuro General: alert, awake, oriented x3, CN's II-XI intact bilaterally and moves all extremities Extremities Pulses: Normal: Right Posterior Tibial Pulse, Left Posterior Tibial Pulse, Right Radial Pulse, Left Radial Pulse Lower Extremity Edema: None: Bilateral Psych Psychological: normal affect Assessment AND Plan 1. Chronic systolic congestive heart failure, NYHA class 3 I50.22 Plan - LISETTE Sutton Patient does have symptoms concerning for congestive heart failure. Her diuretics have been maximized however she has not been responding to this. She still continues to feel short of breath. Will start patient on Entresto. We will follow-up with patient closely. Would like to try and maximize this medication and decrease her diuretics if possible. 2. Acute deep vein thrombosis (DVT) of brachial vein of left upper extremity I82.622 Plan - LISETTE Sutton This is being followed by primary care. She remains on her anticoagulant. 3. Pulmonary hypertension I27.20 PA systolic estimated at 53 on echocardiogram done in February 2018 Plan - LISETTE Sutton Patient will continue with her diuretics. Plan Detail Other Orders Orders: Other Medications New: Additional Comments - LISETTE Sutton The above patient was discussed with Dr. Ch, he agrees with plan of care. Thank you for allowing us to participate in patient's plan of care, if you have any questions please do not hesitate to call. This note was generated using a voice recognition system and there may be incorrect words, spelling or punctuation errors that were not noted when reviewing the office note prior to saving. 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) Coding Level of Care Code Off vis,est,level 4 Diagnoses Chronic systolic congestive heart failure, NYHA class 3 I50.22 Acute deep vein thrombosis (DVT) of brachial vein of left upper extremity I82.622 Chronicity: acute Pulmonary hypertension I27.20 Coding Level of Care Code Off vis,est,level 4 Diagnoses Chronic systolic congestive heart failure, NYHA class 3 I50.22 Acute deep vein thrombosis (DVT) of brachial vein of left upper extremity I82.622 Chronicity: acute Pulmonary hypertension I27.20 09/21/18 1655 <Electronically signed by Mimi KNOX> Date Mimi KNOX 10/02/18 0644<Electronically signed by Boone Ch MD> Junior Signature: Date (if applicable) Boone Ch MD CC: Sangeetha Fast DO BRAIN/HEAD WITHOUT Observed: 09/25/2018 Status: F Source: [place] CONTRAST 2:00 PM [facility] Imaging Services [address] [place] [address] Brain/Head without Contrast MR#: [id number] Acct: [id number] Name: IFEOMA ASHRAF Rep #: [id number] : 1965 F 53 From: Isabella Montoya MD PCP: Sangeetha Irvin DO Status: REG CLI Study: Brain/Head without Contrast Date of Exam: 09/25/18 Exam# [id number] Ordering Dr: Red Fish MD STUDY: CT BRAIN WITHOUT CONTRAST REASON FOR EXAM: Female, 53 years old. Dizziness RADIATION DOSAGE (If Supplied By Facility): CTDIvol = ( 44.99 ) mGy, DLP = ( 796.11 ) mGycm TECHNIQUE: Transaxial CT imaging of the brain was performed without administration of intravenous contrast material. Individualized dose optimization techniques were used for this CT. COMPARISON: April 06, 2018 FINDINGS: Ventricles: Normal for patient's age. White matter and Cortex: Stable scattered areas of decreased attenuation within the white matter tracts of the supratentorial brain, likely microvascular changes. Normal appearance of the cortex. Basal ganglia and Thalami: Normal in appearance. Brainstem: Normal in appearance. Cerebellum: Normal in appearance. Vascular: No significant abnormalities. No evidence of acute hemorrhage. No evidence of acute ischemia. No evidence of mass effect. Soft tissues: Unremarkable. Bones: Unremarkable. Sinuses: Unremarkable. CT/Brain/Head without Contrast IMPRESSION: No acute intracranial abnormalities. Stable chronic findings. Electronically Signed: Isabella Montoya MD at 0:13 EST Tel Direct: [phone], Service support , CC: Elaine Fish MD; Sangeetha Irvin DO Supervisor Laundry: Signed SPINE CERVICAL Observed: 09/25/2018 Status: F Source: [place] WITHOUT CONTRAS 2:00 PM [facility] Services [address] [place] [address] Spine Cervical without Contras MR#: [id number] Acct: [id number] Name: IFEOMA ASHRAF Rep #: [id number] : 1965 F 53 From: Isabella Montoya MD PCP: Sangeetha Irvin DO Status: REG CLI Study: Spine Cervical without Contras Date of Exam: 09/25/18 Exam# [id number] Ordering Dr: Red Fish MD STUDY: CT CERVICAL SPINE WITHOUT CONTRAST REASON FOR EXAM: Female, 53 years old. Neck pain, dizziness RADIATION DOSAGE (If Supplied By Facility): CTDIvol = ( 29.49 ) mGy, DLP = ( 720.89 ) mGycm TECHNIQUE: High resolution transaxial imaging was performed without contrast material. Sagittal and coronal images were reconstructed. Individualized dose optimization techniques were used for this CT. COMPARISON: June 15, 2017 FINDINGS: No acute fractures seen. Normal cervical lordosis. Degenerative changes of the atlantoaxial articulation. Normal odontoid process. There is minimal disc herniation at C5-6 with effacement of the ventral thecal sac and mild canal narrowing. There is moderate narrowing of the left neural foramen at this level. Lung apices unremarkable. Normal appearing thyroid. CT/Spine Cervical without Contras IMPRESSION: There are stable mild degenerative changes at C5-6. There are no acute abnormalities. Electronically Signed: Isabella Montoya MD at 0:17 EST Tel Direct: [phone], Service support , CC: Elaine Fish MD; Sangeetha Irvin DO Supervisor Laundry: Signed ABDOMEN/PELVIS WITH Observed: 09/15/2018 Status: F Source: [place] CONTRAST 8:15 AM [facility] [address] [place] [address] Abdomen/Pelvis WITH Contrast MR#: [id number] Acct: [id number] Name: IFEOMA ASHRAF Rep #: [id number] : 1965 F 53 From: Madisyn Garrido MD PCP: Sangeetha Irvin DO Status: REG CLI Study: Abdomen/Pelvis WITH Contrast Date of Exam: 09/15/18 Exam# [id number] Ordering Dr: Sangeetha Irvin DO STUDY: CT ABDOMEN AND PELVIS WITH CONTRAST REASON FOR EXAM: Female, 53 years old. Abnormal tumor markers. History of NHL. RADIATION DOSAGE (If Supplied By Facility): CTDIvol = ( 29.48 ) mGy, DLP = ( 1157.37 ) mGycm TECHNIQUE: Transaxial images were obtained from the dome of the diaphragm to the symphysis pubis without oral contrast. 100ML ml of Isovue 300 contrast was administered. Sagittal and coronal images were reconstructed. Individualized dose optimization techniques were used for this CT. COMPARISON: CT dated June 15, 2017 FINDINGS: The visualized lung bases are unremarkable. There is a pericardial effusion. The liver is slightly low in attenuation consistent fatty infiltration. There are surgical clips in the gallbladder fossa consistent with a prior cholecystectomy. Normal spleen. Normal pancreas. Normal bilateral adrenal glands. Normal right kidney. Normal left kidney. Normal visualized stomach. Normal small intestine. Normal colon. There is non-visualization of the appendix. There are scattered peripheral calcifications of the abdominal aorta distance with atherosclerosis. Normal inferior vena cava. Normal retroperitoneum. Normal urinary bladder. Normal abdominal wall. There are diffuse degenerative changes of the visualized lumbar spine. There are punctate sclerotic foci noted within the proximal femurs and left acetabulum. CT/Abdomen/Pelvis WITH Contrast IMPRESSION: Pericardial effusion. Mild fatty infiltration of the liver. Punctate sclerotic foci within the proximal femurs and left acetabulum which may reflect underlying bone island, consider bone scan for further characterization. Atherosclerosis. Electronically Signed: Madisyn Garrido MD at 22:39 EST Tel , Service support , CC: Sangeetha Irvin DO Supervisor Laundry: Signed ECHO, COMPLETE W/ Observed: 09/06/2018 Status: F Source: [place] CONTRAST 3:35 PM [facility] Services [address] [place] [id number] Echo Complete W/ Contrast 09/06/18 1002 MR#: [id number] Acct: [id number] Name: IFEOMA ASHRAF Rep #: [id number] : 1965 53 From: Boone Ch MD Attending Dr: Sangeetha Irvin DO Status: REG CLI Ordering Dr: Sangeetha Irvin DO Date: 09/06/18 Location: [facility] Sex: F C Admitted: Reason For Study: SOB Procedure This was a 2D Doppler, Color Flow transthoracic echocardiogram. Contrast injection was performed. Exam performed in department. Left Ventricle Moderately dilated left ventricle. The estimated ejection fraction is 15 %. The global longitudinal strain is severely abnormal. The global longitudinal strain = -2% (abnormal). Stage 3 diastolic dysfunction. There is severe global hypokinesis of the left ventricle. Right Ventricle Normal RV size. ICD or pacer leads identified within the right ventricle. Normal systolic function. Atria The left atrium is moderately enlarged. Normal right atrium. Mitral Valve Normal mitral valve. Moderately severe (3+) mitral valve insufficiency. Tricuspid Valve Normal tricuspid valve. Moderate (2+) tricuspid valve insufficiency. Pulmonary artery systolic pressure is 40 mmHg. Aortic Valve Normal aortic valve. Trisinus/trileaflet aortic valve. Pulmonic Valve Normal pulmonic valve. Great Vessels Normal aortic root. The pulmonary artery is normal size. The inferior vena cava is dilated. Pericardium/Pleural Small pericardial effusion. There are no echocardiographic indications of cardiac tamponade. Medication 22 gauge I.V. with prn adaptor inserted into right arm. Diluted definity 2ml given slow IV push to enhance endocardial definition. MMode/2D Measurements AND Calculations LVIDd: 6.1 cm IVSd: 0.65 cm Ao root diam: 3.0 cm LVIDs: 5.7 cm LVPWd: 0.74 cm LA dimension: 4.0 cm FS: 5.9 % LAV(MOD-bp): 73.2 ml LVAd ap4: 46.8 cm2 SV(MOD-sp4): 31.6 ml LAV(MOD-bp) Indexed: 37.2 ml/m2 EDV(MOD-sp4): 211.8 ml LAV(MOD-sp2): 69.5 ml EDV(sp4-el): 223.3 ml LAV(MOD-sp4): 74.8 ml LVAs ap4: 41.4 cm2 ESV(MOD-sp4): 180.2 ml ESV(sp4-el): 187.5 ml EF(MOD-sp4): 14.9 % EF(sp4-el): 16.1 % SV(sp4-el): 35.9 ml LA A4 area: 23.9 cm2 RA A4 area: 17.1 cm2 Time Measurements MV dec time: 0.15 sec Doppler Measurements AND Calculations MV E max nadine: 122.5 cm/sec Ao V2 max: 93.2 cm/sec LV V1 max: 63.0 cm/sec MV A max nadine: 38.4 cm/sec Ao max P.5 mmHg LV V1 max P.6 mmHg MV E/A: 3.2 MR max nadine: 455.3 cm/sec PA V2 max: 48.2 cm/sec TR max nadine: 289.4 cm/sec MR max P.9 mmHg TR max P.5 mmHg MR mean nadine: 319.6 cm/sec MR mean P.9 mmHg MR VTI: 125.4 cm Interpretation Summary Moderately dilated left ventricle. The estimated ejection fraction is 15 %. The global longitudinal strain is severely abnormal. Moderately severe (3+) mitral valve insufficiency. Pulmonary artery systolic pressure is 40 mmHg. Small pericardial effusion. There are no echocardiographic indications of cardiac tamponade. Stage 3 diastolic dysfunction. Compared to previous study, the left ventricular systolic function is the same.. Ordering Physician: Sangeetha Irvin Referring Physician: Sangeetha Irvin Performed By: Brent Garces RCS 09/06/18 1534 Date Boone Ch MD CC: Sangeetha Irvin DO Date Dictated: 09/06/18 1002 Date Transcribed: 09/06/18 1534 Supervisor Laundry: Signed CTA CHEST W/WO Observed: 09/04/2018 Status: F Source: [place] CONTRAST 3:34 PM [facility] [place] [address] CTA Chest W/WO Contrast MR#: [id number] Acct: [id number] Name: IFEOMA ASHRAF Rep #: [id number] : 1965 F 53 From: Ziggy Santos MD PCP: Sangeetha Irvin DO Status: REG CLI Study: CTA Chest W/WO Contrast Date of Exam: 09/04/18 Exam# [id number] Ordering Dr: Sangeetha Irvin DO STUDY: CTA CHEST REASON FOR EXAM: Female, 53 years old. Chest pain, elevated d-dimer RADIATION DOSAGE (If Supplied By Facility): CTDIvol = ( 29.93 ) mGy, DLP = ( 662.92 ) mGycm TECHNIQUE: The examination was performed with the intravenous administration of 75CC ml of Isovue 370 contrast material. Post-processing of the angiographic images was performed, with multiplanar reformation and 3D reconstruction. Individualized dose optimization techniques were used for this CT. COMPARISON: Previous plain films FINDINGS: Left subclavian pacemaker in satisfactory position, no pneumothorax or mediastinal shift Normal enhancement of the main pulmonary artery and right and left pulmonary arteries. Normal enhancement of the bilateral peripheral pulmonary arteries. There is no demonstrated pulmonary embolism. Normal thoracic aorta and visualized great vessels. There is no demonstrated aortic dissection. There is a pericardial effusion with maximum thickness of 1.32 cm. There are calcified coronary vessels. There are subcentimeter axillary mediastinal [...] effusion Calcified coronary vessels Degenerative bony changes Electronically Signed: Kenn Santos MD at 16:19 EST , Service support , CC: Sangeetha Tavon DAVIS Supervisor Laundry: Signed CBC W/DIFF, AUTOMATED Collected: 09/04/2018 Status: F Source: [place] 12:59 PM [facility] TYPE CODE TESTS RESULT OUT OF RANGE REFERENCE UNITS LAB L100.1000 4.4-11.0 K/mm3 Normal WBC 7.5 LAB L100.1200 4.2-5.4 M/mm3 Low RBC 3.78 LAB L100.1300 12.0-15.0 g/dl Low HGB 11.7 LAB L100.1400 37-47 % Normal HCT 38.2 LAB L100.1500 81-99 fL High MCV 101.1 LAB L100.1600 27.0-32.0 pg Normal MCH 31.0 LAB L100.1700 32-36 g/gl Low MCHC 30.6 LAB L100.1810 11.6-14.6 % High RDW CV 16.0 LAB L100.1820 35.1-43.9 fl High RDW SD 56.6 LAB L100.1900 150-450 K/mm3 Normal PLT 330 LAB L100.2000 6.2-12.0 fl Normal MPV 11.0 LAB L100.2100 47-70 % High NEUT% 77.7 LAB L100.2200 19-41 % Low LY% 14.3 LAB L100.2300 0-10 % Normal MONO% 4.9 LAB L100.2400 0-5 % Normal EO% 2.3 LAB L100.2500 0-1 % Normal BASO% 0.4 LAB L100.2550 0.0-0.9 % Normal IM GRAN % 0.400 Result Comment: IG% - Immature Granulocytes (promyelocytes, myelocytes and metamyelocytes) > 1% indicates that a LEFT SHIFT is Present. LAB L100.2620 2.0-7.7 X10 3/uL Normal Absolute Neut 5.9 LAB L100.2720 0.83-4.51 X10 3/ul Normal Absolute Lymph 1.08 Performed By: #### L100.0100 #### [facility] [address] [place], [address] COMPREHENSIVE METABOLIC Collected: 09/04/2018 Status: F Source: [place] 12:59 PM [facility] Order Comment: 'TROP' Serial specimen #1, #2, #3, or #4: 1 TYPE CODE TESTS RESULT OUT OF RANGE REFERENCE UNITS LAB L501.0100 74-106 mg/dL High GLU 346 Result Comment: Glucose result greater than or equal to 200 mg/dL suggests DIABETES MELLITUS per A.D.A. criteria. Please note revised GLUCOSE reference range effective 2017. LAB L501.1000 7-18 mg/dL Normal BUN 14 LAB L501.1100 0.55-1.02 mg/dL Normal CREAT,SERUM 1.01 Result Comment: The validity of the calculated GFR AND GFRAA in patients over 70 years has not been determined. Clinical correlation is essential. LAB L501.1110 >60 mL/min Normal EST GFR 61 Result Comment: Non- GFR Calc LAB L501.1115 >60 mL/min Normal EST GFR - AA 73 Result Comment: GFR Calc LAB L501.1300 10-20 RATIO Normal BUN/CRE 13.9 LAB L501.1500 6.4-8.2 g/dL T Normal PROT 6.6 LAB L501.1800 3.2-5.0 g/dL Normal ALB 3.5 LAB L501.1950 2.2-4.2 g/dL Normal GLOB 3.1 LAB L501.2000 0.9-2.4 RATIO Normal A/G 1.1 LAB L501.2200 8.5-10.1 mg/dL CA Normal 9.3 LAB L501.4100 15-37 U/L Normal AST 17 LAB L501.4305 45-117 U/L High ALK P 263 LAB L501.4405 13-56 U/L Normal ALT 15 LAB L501.4600 0.20-1.00 mg/dL High T BILI 1.60 LAB L501.5300 136-145 mmol/L Low NA 135 LAB L501.5600 3.5-5.1 mmol/L K Normal 4.6 LAB L501.5900 98-107 mmol/L CL Normal 98 LAB L501.6100 21.0-32.0 mmol/L Normal CO2 29.0 LAB L501.6200 5-15 Normal GAP 8 Performed By: #### L500.4050, L501.3620, L501.4010 #### [facility] [address] [place], [address] CPK TOTAL, CREATINE Collected: 09/04/2018 Status: F Source: [place] KINASE 12:59 PM [facility] Order Comment: 'TROP' Serial specimen #1, #2, #3, or #4: 1 TYPE CODE TESTS RESULT OUT OF RANGE REFERENCE UNITS LAB L501.3620 26-192 U/L Normal CPK TOTAL 30 Performed By: #### L500.4050, L501.3620, L501.4010 #### [facility] [address] [place], [address] TROPONIN-I Collected: 09/04/2018 Status: F Source: [place] 12:59 PM [facility] Order Comment: 'TROP' Serial specimen #1, #2, #3, or #4: 1 TYPE CODE TESTS RESULT OUT OF RANGE REFERENCE UNITS LAB L501.4010 <0.045 ng/mL Normal 0.030 TROPONIN-I Result Comment: TROPONIN-I EXPECTED VALUES <0.045 Negative 0.045 - 0.590 Consistent with Cardiac Damage > OR = 0.600 Critical Value Not every elevated troponin is indicative of SD. These values should be used with clinical judgement in examining the patient's clinical picture for diagnosis. To establish a diagnosis of SD versus myocardial injury, there must be a demonstrated rise and/or fall in the troponin values, in addition to ischemic symptoms, EKG changes, new regional wall motion abnormality, and/or angiographical evidence. PLEASE NOTE: REFERENCE RANGES EDITED 18 Performed By: #### L500.4050, L501.3620, L501.4010 #### [facility] [address] [place], [address] BNP,B-TYPE NATRIURETIC Collected: 09/04/2018 Status: F Source: [place] PEPTIDE 12:59 PM [facility] TYPE CODE TESTS RESULT OUT OF RANGE REFERENCE UNITS LAB L503.6620 0-100 pg/mL High B-TYPE 819.3 JACKIE PEP Performed By: #### L503.6620 #### [facility] [address] [place], [address] D-DIMER QUANTITATIVE Collected: 09/04/2018 Status: F Source: [place] (DVT/PE) 12:59 PM [facility] TYPE CODE TESTS RESULT OUT OF RANGE REFERENCE UNITS LAB L300.8000 0.27-0.49 FEU/ug/m High alert D-DIMER 1.44 QUANT Result Comment: CRITICAL VALUE VERIFIED. CALLED TO [employer] 09/04/18 1440 Francois Quinn. RESULTS READ BACK BY SAME . D-Dimer ELEVATED (>0.49): Additional studies and clinical assessments are indicated to conclude diagnosis of: Deep Vein Thrombosis (DVT) or Pulmonary Embolism (PE) Performed By: #### L300.8000 #### [facility] [address] [place], [address] HEMOGLOBIN A1C Collected: 08/29/2018 Status: F Source: [place] 12:44 PM [facility] TYPE CODE TESTS RESULT OUT OF RANGE REFERENCE UNITS LAB L501.9985 4.2-6.3 % High HGB A1C 10.6 Performed By: #### L501.9985 #### [facility] [address] [place], [address] VITAMIN B12 Collected: 08/29/2018 Status: F Source: [place] 12:44 PM [facility] TYPE CODE TESTS RESULT OUT OF REFERENCE UNITS RANGE LAB L503.0105 211-911 pg/mL High Vitamin B12 1303 Performed By: #### L503.0105, L506.1000 #### [facility] [address] [place], [address] VITAMIN D,25 HYDROXY Collected: 08/29/2018 Status: F Source: [place] 12:44 PM [facility] TYPE CODE TESTS RESULT OUT OF RANGE REFERENCE UNITS LAB L506.1000 29.95-100.01 ng/mL Normal Vitamin D 62.4 25-OH Result Comment: Vitamin D 25(OH) Status Range Deficiency <20 ng/mL (50nmol/L) Insuffciency 20 - 30 ng/mL (50 - 75 nmol/L) Sufficiency 30 - 100 ng/mL (75 - 250 nmol/L) Toxicity >100 ng/mL (>250 nmol/L) Performed By: #### L503.0105, L506.1000 #### [facility] [address] [place], [place], [id number] CPK TOTAL, CREATINE Collected: 08/29/2018 Status: F Source: [place] KIN[place] 12:44 PM [facility] TYPE CODE TESTS RESULT OUT OF RANGE REFERENCE UNITS LAB L501.3620 26-192 U/L Normal CPK TOTAL 33 Performed By: #### L501.3620, L501.9520, L505.7010 #### [facility] [address] [place], [address] THYROID STIM HORMONE Collected: 08/29/2018 Status: F Source: [place] (TSH) 12:44 PM [facility] TYPE CODE TESTS RESULT OUT OF RANGE REFERENCE UNITS LAB L501.9520 0.358-3.74 uIU/mL Normal TSH 2.71 Performed By: #### L501.3620, L501.9520, L505.7010 #### [facility] [address] [place], [address] RHEUMATOID FACTOR Collected: 08/29/2018 Status: F Source: [place] 12:44 PM [facility] TYPE CODE TESTS RESULT OUT OF RANGE REFERENCE UNITS LAB L505.7010 <15 IU/mL Normal RHEUMATOID FAC < 10.0 Performed By: #### L501.3620, L501.9520, L505.7010 #### [facility] [address] [place], [address] ANTINUCLEAR ANTIBODIES Collected: 08/29/2018 Status: F Source: [place] DIRECT 12:44 PM [facility] TYPE CODE TESTS RESULT OUT OF RANGE REFERENCE UNITS LAB L3100.5475 Negative Normal Negative LASHA-DIRECT Result Comment: Performed at: [address] [id number] Roaster Helper: Omar Hood PhD, Phone: [phone] Performed By: #### L3100.5475, L3100.9100 #### [facility] (refer to report for specific site) refer to report for address and phone number SJOGREN'S ANTIBODIES Collected: 08/29/2018 Status: F Source: [place] A/B 12:44 PM [facility] TYPE CODE TESTS RESULT OUT OF RANGE REFERENCE UNITS LAB L3100.9200 0.0-0.9 AI Normal Anti-SS-A < 0.2 LAB L3100.9300 0.0-0.9 AI Normal Anti-SS-B < 0.2 Performed By: #### L3100.5475, L3100.9100 #### [facility] (refer to report for specific site) refer to report for address and phone number PRANEETH + PROTEIN ELECT, Collected: 08/29/2018 Status: F Source: [place] SERUM 12:44 PM [facility] Order Comment: Is Patient Fasting? N TYPE CODE TESTS RESULT OUT OF RANGE REFERENCE UNITS LAB L3100.3500 6.0-8.5 g/dL Normal PROTEIN,TOTAL 6.3 LAB L3200.9634 624-5950 mg/dL Low IMMUNO G 538 LAB L3200.1400 87-352 mg/dL Low IMMUNO A 69 LAB L3200.1500 26-217 mg/dL Normal IMMUNOGL M 103 LAB L3200.1510 2.9-4.4 g/dL Normal ALBUMIN 3.4 LAB L3200.1520 0.0-0.4 g/dL Normal ICTWL-8-JMOV 0.3 LAB L3200.1530 0.4-1.0 g/dL Normal WHCRX-0-HLHS 0.9 LAB L3200.1540 0.7-1.3 g/dL Normal BETA GLOBULIN 1.1 LAB L3200.1550 0.4-1.8 g/dL Normal GAMMA GLOBULIN 0.6 LAB L3200.1560 Normal M-SPIKE Result Comment: Not Observed LAB L3200.1570 2.2-3.9 g/dL Normal GLOBULIN, TOTAL 2.9 LAB L3200.1580 0.7-1.7 A/G Normal RATIO 1.2 LAB L3200.1590 . PRANEETH Normal RESULT,S Comment Result Comment: No monoclonality detected. LAB L3200.1594 . Normal NOTE: Comment Result Comment: Protein electrophoresis scan will follow via computer, mail, or mask layout designer delivery. Performed By: #### L3100.3425, L3300.1200, L3600.4025 #### [facility] (refer to report for specific site) refer to report for address and phone number ANCA Collected: 08/29/2018 Status: F Source: [place] 12:44 PM [facility] Order Comment: Is Patient Fasting? N TYPE CODE TESTS RESULT OUT OF RANGE REFERENCE UNITS LAB L3300.1225 Neg:<1:20 titer CYTOPLASMIC Normal Ab <1:20 LAB L3300.1250 Neg:<1:20 titer PERINUCLEAR Normal Ab <1:20 Result Comment: The presence of positive fluorescence exhibiting P-ANCA or C-ANCA patterns alone is not specific for the diagnosis of Ny's Granulomatosis (WG) or microscopic polyangiitis. Decisions about treatment should not be based solely on ANCA IFA results. The International ANCA Group Consensus recommends follow up testing of positive sera with both OH- 3 and MPO-ANCA enzyme immunoassays. As many as 5% serum samples are positive only by EIA. Ref. AM J Clin Pathol 1999;111:507-513. LAB L3300.1285 Neg:<1:20 titer Normal Atypical pANCA <1:20 Result Comment: The atypical pANCA pattern has been observed in a significant percentage of patients with ulcerative colitis, primary sclerosing cholangitis and autoimmune hepatitis. Performed at: [address] [id number] Roaster Helper: Omar Hood PhD, Phone: [phone] Performed By: #### L3100.3425, L3300.1200, L3600.4025 #### [facility] (refer to report for specific site) refer to report for address and phone number PRANEETH AND PE, Collected: 08/29/2018 Status: F Source: [place] RANDOM UR 12:44 PM [facility] Order Comment: Is Patient Fasting? N TYPE CODE TESTS RESULT OUT OF RANGE REFERENCE UNITS LAB L3600.4100 Not Estab. mg/dL Normal 27.8 PROTEIN,UR LAB L3600.4240 . % Normal 62.0 ALBUMIN,U LAB L3600.4340 . % Normal 7.6 ALPHA-1-SAVANNAH B,U LAB L3600.4440 . % Normal 10.8 ALPHA-2-SAVANNAH B,U LAB L3600.4540 . % Normal BETA 14.2 GLOB,U LAB L3600.4640 . % Normal GAMMA 5.5 GLOB,U LAB L3600.4740 Not Observed % Normal Not Observed M-SPIKE,UR% LAB L3600.4775 . Normal PRANEETH Comment RESULT,U Result Comment: No monoclonality detected. LAB L3600.4900 . Normal NOTE Comment Result Comment: Protein electrophoresis scan will follow via computer, mail, or mask layout designer delivery. Performed By: #### L3100.3425, L3300.1200, L3600.4025 #### [facility] (refer to report for specific site) refer to report for address and phone number BASIC METABOLIC Collected: 07/28/2018 Status: F Source: [place] PROFILE (BMP) 11:06 AM [facility]POS[facility] Order Comment: PLEASE FAX TO DR. IRVIN. [phone] TYPE CODE TESTS RESULT OUT OF RANGE REFERENCE UNITS LAB L501.0100 74-106 mg/dL High GLU 411 Result Comment: Glucose result greater than or equal to 200 mg/dL suggests DIABETES MELLITUS per A.D.A. criteria. Please note revised GLUCOSE reference range effective 2017. LAB L501.1000 7-18 mg/dL Normal BUN 11 LAB L501.1100 0.55-1.02 mg/dL Normal CREAT,SERUM 0.88 Result Comment: The validity of the calculated GFR AND GFRAA in patients over 70 years has not been determined. Clinical correlation is essential. LAB L501.1110 >60 mL/min Normal EST GFR 71 Result Comment: Non- GFR Calc LAB L501.1115 >60 mL/min Normal EST GFR - AA 86 Result Comment: GFR Calc LAB L501.1300 10-20 RATIO Normal BUN/CRE 12.5 LAB L501.2200 8.5-10.1 mg/dL CA Normal 8.8 LAB L501.5300 136-145 mmol/L NA Normal 138 LAB L501.5600 3.5-5.1 mmol/L Low K 3.2 LAB L501.5900 98-107 mmol/L CL Normal 100 LAB L501.6100 21.0-32.0 mmol/L Normal CO2 26.0 LAB L501.6200 5-15 Normal GAP 12 Performed By: #### L500.2500 #### [facility] [place], [address] CBC W/DIFF, AUTOMATED Collected: 07/19/2018 Status: F Source: [place] 9:22 AM [facility] Order Comment: BMP TO DULCE TODD [facility]. CBCD, TSH, B12 TO DR. SANGEETHA IRVIN. TYPE CODE TESTS RESULT OUT OF RANGE REFERENCE UNITS LAB L100.1000 4.4-11.0 K/mm3 Normal WBC 8.0 LAB L100.1200 4.2-5.4 M/mm3 Low RBC 3.69 LAB L100.1300 12.0-15.0 g/dl Low HGB 11.8 LAB L100.1400 37-47 % Normal HCT 37.4 LAB L100.1500 81-99 fL High MCV 101.4 LAB L100.1600 27.0-32.0 pg Normal MCH 32.0 LAB L100.1700 32-36 g/gl Low MCHC 31.6 LAB L100.1810 11.6-14.6 % Normal RDW CV 14.3 LAB L100.1820 35.1-43.9 fl High RDW SD 52.0 LAB L100.1900 150-450 K/mm3 Normal PLT 284 LAB L100.2000 6.2-12.0 fl Normal MPV 10.1 LAB L100.2100 47-70 % High NEUT% 75.9 LAB L100.2200 19-41 % Low LY% 14.5 LAB L100.2300 0-10 % Normal MONO% 5.1 LAB L100.2400 0-5 % Normal EO% 3.9 LAB L100.2500 0-1 % Normal BASO% 0.5 LAB L100.2550 0.0-0.9 % Normal IM GRAN % 0.100 Result Comment: IG% - Immature Granulocytes (promyelocytes, myelocytes and metamyelocytes) > 1% indicates that a LEFT SHIFT is Present. LAB L100.2620 2.0-7.7 X10 3/uL Normal Absolute Neut 6.1 LAB L100.2720 0.83-4.51 X10 3/ul Normal Absolute Lymph 1.16 Performed By: #### L100.0100 #### [facility] [address] [place], [address] VITAMIN B12 Collected: 07/19/2018 Status: F Source: [place] 9:22 AM [facility] Order Comment: BMP TO DULCE TODD [facility]. CBCD, TSH, B12 TO DR. SANGEETHA IRVIN. TYPE CODE TESTS RESULT OUT OF RANGE REFERENCE UNITS LAB L503.0105 211-911 pg/mL Normal Vitamin B12 659 Performed By: #### L503.0105 #### [facility] [address] [place], [address] BASIC METABOLIC Collected: 07/19/2018 Status: F Source: [place] PROFILE (BMP) 9:20 AM [facility] Order Comment: BMP TO DULCE TODD [facility]. CBCD, TSH, B12 TO DR. SANGEETHA IRVIN. TYPE CODE TESTS RESULT OUT OF RANGE REFERENCE UNITS LAB L501.0100 74-106 mg/dL High GLU 198 Result Comment: Fasting Glucose result greater than or equal to 126 mg/dL suggests DIABETES MELLITUS per A.D.A. criteria. Please note revised GLUCOSE reference range effective 2017. LAB L501.1000 7-18 mg/dL Normal BUN 16 LAB L501.1100 0.55-1.02 mg/dL Normal CREAT,SERUM 0.86 Result Comment: The validity of the calculated GFR AND GFRAA in patients over 70 years has not been determined. Clinical correlation is essential. LAB L501.1110 >60 mL/min Normal EST GFR 73 Result Comment: Non- GFR Calc LAB L501.1115 >60 mL/min Normal EST GFR - AA 88 Result Comment: GFR Calc LAB L501.1300 10-20 RATIO Normal BUN/CRE 18.5 LAB L501.2200 8.5-10.1 mg/dL CA Normal 9.3 LAB L501.5300 136-145 mmol/L Low NA 134 LAB L501.5600 3.5-5.1 mmol/L K Normal 3.6 LAB L501.5900 98-107 mmol/L CL Normal 98 LAB L501.6100 21.0-32.0 mmol/L Normal CO2 27.0 LAB L501.6200 5-15 Normal GAP 9 Performed By: #### L500.2500, L501.9520 #### [facility] [address], [address] THYROID STIM HORMONE Collected: 07/19/2018 Status: F Source: [place] (TSH) 9:20 AM [facility] Order Comment: BMP TO DULCE TODD [facility]. CBCD, TSH, B12 TO DR. SANGEETHA IRVIN. TYPE CODE TESTS RESULT OUT OF RANGE REFERENCE UNITS LAB L501.9520 0.358-3.74 uIU/mL High TSH 4.09 Performed By: #### L500.2500, L501.9520 #### [facility] [address] [place], [place], [address] CBC W/DIFF, AUTOMATED Collected: 07/14/2018 Status: F Source: [place] 3:23 PM [facility] TYPE CODE TESTS RESULT OUT OF RANGE REFERENCE UNITS LAB L100.1000 4.4-11.0 K/mm3 Normal WBC 7.2 LAB L100.1200 4.2-5.4 M/mm3 Low RBC 3.49 LAB L100.1300 12.0-15.0 g/dl Low HGB 11.6 LAB L100.1400 37-47 % Low HCT 36.5 LAB L100.1500 81-99 fL High MCV 104.6 LAB L100.1600 27.0-32.0 pg High MCH 33.2 LAB L100.1700 32-36 g/gl Low MCHC 31.8 LAB L100.1810 11.6-14.6 % Normal RDW CV 14.1 LAB L100.1820 35.1-43.9 fl High RDW SD 52.2 LAB L100.1900 150-450 K/mm3 Normal PLT 301 LAB L100.2000 6.2-12.0 fl Normal MPV 10.3 LAB L100.2100 47-70 % High NEUT% 71.8 LAB L100.2200 19-41 % Low LY% 17.2 LAB L100.2300 0-10 % Normal MONO% 6.3 LAB L100.2400 0-5 % Normal EO% 3.9 LAB L100.2500 0-1 % Normal BASO% 0.7 LAB L100.2550 0.0-0.9 % Normal IM GRAN % 0.100 Result Comment: IG% - Immature Granulocytes (promyelocytes, myelocytes and metamyelocytes) > 1% indicates that a LEFT SHIFT is Present. LAB L100.2620 2.0-7.7 X10 3/uL Normal Absolute Neut 5.1 LAB L100.2720 0.83-4.51 X10 3/ul Normal Absolute Lymph 1.23 Performed By: #### L100.0100 #### [facility] Laboratory [address] [place], [place], [address] BASIC METABOLIC Collected: 07/14/2018 Status: F Source: [place] [facility] ([facility]) 3:23 PM [facility] REPOSITORY TYPE CODE TESTS RESULT OUT OF RANGE REFERENCE UNITS LAB L501.0100 74-106 mg/dL High GLU 257 Result Comment: Glucose result greater than or equal to 200 mg/dL suggests DIABETES MELLITUS per A.D.A. criteria. Please note revised GLUCOSE reference range effective 2017. LAB L501.1000 7-18 mg/dL Normal BUN 15 LAB L501.1100 0.55-1.02 mg/dL Normal CREAT,SERUM 0.90 Result Comment: The validity of the calculated GFR AND GFRAA in patients over 70 years has not been determined. Clinical correlation is essential. LAB L501.1110 >60 mL/min Normal EST GFR 69 Result Comment: Non- GFR Calc LAB L501.1115 >60 mL/min Normal EST GFR - AA 84 Result Comment: GFR Calc LAB L501.1300 10-20 RATIO Normal BUN/CRE 16.6 LAB L501.2200 8.5-10.1 mg/dL CA Normal 9.5 LAB L501.5300 136-145 mmol/L NA Normal 140 LAB L501.5600 3.5-5.1 mmol/L K Normal 4.1 LAB L501.5900 98-107 mmol/L CL Normal 103 LAB L501.6100 21.0-32.0 mmol/L Normal CO2 30.0 LAB L501.6200 5-15 Normal GAP 7 Performed By: #### L500.2500, L503.6620 #### [facility] Laboratory [address], [address] BNP,B-TYPE NATRIURETIC Collected: 07/14/2018 Status: F Source: [place] 3:23 PM [facility] REPOSITORY TYPE CODE TESTS RESULT OUT OF RANGE REFERENCE UNITS LAB L503.6620 0-100 pg/mL High B-TYPE 892.7 JACKIE PEP Performed By: #### L500.2500, L503.6620 #### [facility] Laboratory [address] [place], [address] CHEST PA AND LATERAL Observed: 07/14/2018 Status: F Source: [place] 3:11 PM [facility] REPOSITORY [facility] Imaging Services [address] [place] [address] Chest PA and Lateral MR#: [id number] Acct: [id number] Name: IFEOMA ASHRAF Rep #: [id number] : 1965 F 53 From: Dimitris Valderrama DO PCP: Sangeetha Irvin DO Status: REG CLI Study: Chest PA and Lateral Date of Exam: 07/14/18 Exam# [id number] Ordering Dr: Oscar Todd TELEGRAPHIC TYPEWRITER OPERATOR CHIEF-C STUDY: X-RAY CHEST REASON FOR EXAM: Female, [...] disease or interval change. Electronically Signed: Dimitris CrawfordonDO at 8:47 EDT Tel [phone], Service support , CC: NUNU Todd; Sangeetha Irvin DO Supervisor Laundry: Signed PACEMAKER CHECK Observed: 06/10/2018 Status: F Source: [place] 2:06 PM [facility] REPOSITORY [facility] [address] [place], [place] [address] Pacemaker Check Date of Service: 06/09/18 0909 MR#: [id number] Acct: [id number] Name: IFEOMA ASHRAF Rep #: [id number] : 1965 From: Danica Pickering Age/Sex: 53/F [place] [facility] Status: Signed Billing Codes ICD Device Billing: ICD Dev Prog Eval, Single 06/09/18 0913 <Electronically signed by Danica Pickering > Date Danica Pickering 06/10/18 1406<Electronically signed by Boone Ch MD> Cosigner Signature: Date (if applicable) Boone Ch MD CC: CARDIOLOGY VISIT Observed: 06/08/2018 Status: F Source: [place] 10:36 AM [facility] REPOSITORY [facility] [address] [place], [place] [address] OFFICE VISIT Date of Service: 05/31/18 MR#: [id number] Acct: [id number] Name: IFEOMA ASHRAF Rep #: [id number] : 1965 Provider: NUNU Todd Age/Sex: 53/F [place] [facility] Status: Signed with Addenda ADDENDUM by NUNU Todd on 06/01/18 at 0746 Addendum entered and electronically signed by LUPE Black 06/01/18 07:46: Patient's outside records from [facility] admission from 04/07/2018 to 04/27/2018 were reviewed. These records are limited. It appears she underwent a neurological evaluation. She underwent an EEG monitoring, which was negative for seizures and started on Keppra for 7 days for seizure prophylaxis. She underwent an echocardiogram on 04/07/18. Her left atrium was noted to be moderately dilated. Right ventricle was normal size and systolic function. Mitral valve showed moderate mitral valve regurgitation. Tricuspid valve showed mild tricuspid valve regurgitation with an RVSP of 43 mmHg, moderate pulmonary hypertension. Right atrial pressure of 15 mmHg. Ejection fraction was noted to be 25 30% with normal left ventricular wall thickness and stage III to stage IV diastolic dysfunction. Her EKG completed on 04/27/2018 showed normal sinus rhythm nonspecific intraventricular conduction delay at a rate of 79 bpm. She was treated for acute encephalopathy. She underwent multiple CT scans to evaluate for any progression of subdural hematoma. She was ultimately discharged home with requested follow-up with [facility] neurology or local neurologist in approximately 6 weeks. Assessment AND Plan [...] adjustment if indicated. 2. Presence of implantable cardioverter-defibrillator (ICD) Z95.810 Generator change 11/13 @ [facility] Pacemaker check in February [...] prior to saving. Follow Up 6 Months (BAR HELPER) 05/31/18 (GIUSEPPE) 06/01/18 0747 <Electronically signed by Oscar ANDRADE> Date Oscar Todd cc: Sangeetha Irvin DO * Signed HPI HPI Details: IFEOMA ASHRAF, is a 53 F who presents to the office today for a cardiovascular outpatient follow-up. She has a history of non-ischemic cardiomyopathy with EF of 15% noted in February 2018, AICD, diabetes mellitus type 2, morbid obesity, history of diffuse B-cell lymphoma, pulmonary hypertension, mitral regurgitation and tricuspid regurgitation. She presented [facility] on March 08, 2018 after being found unresponsive in her bathroom. During this hospitalization she was found to have an acute left axillary and left brachial vein DVT and was started on Eliquis. She presented to [facility] emergency department in March 2018 for altered mental status. Her CT scan prior to ER visit showed possible hygroma versus subacute resolving subdural hematoma. She was transferred to [facility] for further evaluation. These records are not available for review today. Pt. denies chest, arm, jaw, or neck discomfort. She has completed PT and is hoping to continue with Silver Sneakers. Pt. denies symptoms of palpitations, lightheadedness, dizziness, near syncope, or syncopal episodes. Pt. denies edema or claudication issues. Pt. denies orthopnea, PND, blood in urine, blood in stool, myalgia, or unexplainable fatigue. She states having a general sense of weakness. Patient states feeling SOB with activity and at rest that fluctuates from day to day. She states her edema is improving since the addition of Lasix at last office visit. Intake Vital Signs05/31/18 Height 5 ft 5 in 05/31/18 Weight: 192 lb 05/31/18 Body Mass Index (BMI) 31.9 05/31/18 Blood Pressure 92/58 05/31/18 Respiratory Rate 20 05/31/18 Pulse Rate 100 Intake Visit Reasons: WC to [facility] to [facility] to [place] Allergies amitriptyline Adverse Reaction (Severe, Verified 05/31/18 11:04) Nightmares naproxen sodium [From Aleve] Adverse Reaction (Severe, Verified 05/31/18 11:04) Swelling Sulfa (Sulfonamide Antibiotics) Adverse Reaction (Intermediate, Verified 05/31/18 11:04) Rash Latex, Natural Rubber Adverse Reaction (Mild, Verified 05/31/18 11:04) Other Medications Digoxin 125 mcg PO DAILY 03/07/18 [History Confirmed 05/31/18] Folic Acid 1 mg PO BIDCM 03/07/18 [History Confirmed 05/31/18] Lamotrigine [Lamictal] 200 mg PO QHS 03/07/18 [History Confirmed 05/31/18] Omeprazole [Prilosec] 20 mg PO DAILY 03/07/18 [History Confirmed 05/31/18] Ondansetron HCl [Zofran] 4 mg PO Q8H PRN PRN 03/07/18 [History Confirmed 05/31/18] Simvastatin [Zocor] 10 mg PO QHS 03/07/18 [History Confirmed 05/31/18] Apixaban [Eliquis] 5 mg PO BID 04/06/18 [History Confirmed 05/31/18] Carvedilol [Coreg (Beta Stephanie)] 3.125 mg PO BID 04/06/18 [History Confirmed 05/31/18] Levothyroxine [Synthroid] 75 mcg PO DAILY 04/06/18 [History Confirmed 05/31/18] furosemide 40 mg tablet 40 mg PO QDAY 04/10/18 [History Confirmed 05/31/18] sennosides 8.6 mg tablet 8.6 mg PO QDAY PRN tab 04/10/18 [History Confirmed 05/31/18] Handicap Placard #1 ea 05/17/18 [Rx Confirmed 05/31/18] gabapentin 100 mg capsule 100 mg PO QHS cap 05/31/18 [History Confirmed 05/31/18] haloperidol 1 mg tablet 1 mg PO BID 05/31/18 [History Confirmed 05/31/18] melatonin 3 mg tablet 9 mg PO QHS tab 05/31/18 [History] mirtazapine 15 mg tablet 15 mg PO DAILY #30 tab 05/31/18 [Rx] potassium chloride ER 20 mEq tablet,extended release(part/cryst) 20 meq PO DAILY #30 tab 05/31/18 [Rx] PFSH Medical History Nonrheumatic mitral (valve) insufficiency (Chronic) Non-rheumatic tricuspid valve insufficiency (Chronic) History of non-Hodgkin's lymphoma (Resolved) Anemia (Chronic) Deep vein thrombosis (DVT) of brachial vein of left upper extremity (Resolved) Cardiogenic shock (Resolved) Pulmonary hypertension (Chronic) Type 2 diabetes mellitus without complications (Chronic) Cardiomyopathy [...] History Presence of implantable cardioverter-defibrillator (ICD) (Chronic 11/10/17) History of cholecystectomy (Acute) History of stem cell transplant (Acute) Family History Father CVA (cerebral vascular accident) Diabetes Hypertension Mother Hypertension Brother Diabetes Hypertension Social History Smoking Status: Unknown if ever smoked ROS Const Const: Positive for weakness; negative for fatigue, difficulty sleeping, frequent falls, excessive sweating or headache(s) Eyes Eyes: Negative for loss of peripheral vision, transient loss of vision, blurry vision, tunnel vision or double vision ENT ENT: Negative for headache(s), dizziness, Nosebleed/epistaxis or balance problems Cardio Chest Pain: No Palpitations: No Edema: None Muscle aches with walking: None Resp Respiratory: Positive for SOB with activity and SOB at rest (Occasional SOB at rest); negative for SOB orthopnea\SOB lying down, paroxysmal nocturnal dyspnea or Cough GI GI: Negative nausea, heartburn, black,tarry stools or vomiting : Negative for hematuria Musc Musc: Negative for balance problems, muscle aches/ myalgia, muscle weakness or joint pain Skin Skin: Negative non-healing lesions, unusual bruising or rash Neuro Neuro: Positive for weakness; negative for frequent falls, headache(s), blurry vision, double vision, dizziness, lightheadedness, orthostatic symptoms, near syncope, syncope or lack of coordination Aniceto Hematologic/Lymphatic: Negative for easy bruising or easy bleeding Endo Endo: Negative for fatigue, excessive sweating or increased thirst/drinking Psych Psych: Negative for anxiety or depression Allergy Allergy/Immunology: Negative for hives, Negative for rash Cardiology Exam Const Appearance: cooperative, healthy appearing, well developed, well groomed and no acute distress Nutritional Appearance: well nourished and overweight Orientation: alert, awake and oriented x3 Head Head: normal to inspection, normocephalic and atraumatic Ears: hearing grossly normal bilaterally and external ears normal Nose: external nose normal, nares normal Face and Sinus: face symmetric Mouth: oral mucosae normal, tongue normal and moist mucous membranes Teeth and gingiva: dentition normal Eyes General: appearance normal, both eyes and [...] or lesions noted Extremities Pulses: Normal: Right Posterior Tibial Pulse, Left Posterior Tibial Pulse, Right Radial Pulse, Left Radial Pulse Lower Extremity Edema: None: Bilateral Musculoskel Musculoskeletal: No joint tenderness Psych Psychological: normal affect Supplemental Info Echocardiogram from February 2018 showed moderately dilated left ventricle, severe global left ventricular systolic dysfunction, estimated ejection fraction of 15%, based septal motion, stage III diastolic dysfunction, moderately severe mitral valve insufficiency, RVSP of 53 mmHg, moderate tricuspid valve insufficiency, small pericardial effusion, and when compared to previous study [...] adjustment if indicated. 2. Presence of implantable cardioverter-defibrillator (ICD) Z95.810 Generator change 11/13 @ [facility] Pacemaker check in February [...] prior to saving. Follow Up 6 Months (BAR HELPER) 05/31/18 (GIUSEPPE) Coding Level of Care Code Off vis,est,level 3 Diagnoses Cardiomyopathy in other diseases classified elsewhere I43 Presence of implantable cardioverter-defibrillator (ICD) Z95.810 Nonrheumatic mitral (valve) insufficiency I34.0 Demand ischemia I24.8 Acute deep vein thrombosis (DVT) of brachial vein of left upper extremity I82.622 Chronicity: acute Anemia, unspecified type D64.9 Anemia type: unspecified type Coding Level of Care Code Off vis,est,level 3 Diagnoses Cardiomyopathy in other diseases classified elsewhere I43 Presence of implantable cardioverter-defibrillator (ICD) Z95.810 Nonrheumatic mitral (valve) insufficiency I34.0 Demand ischemia I24.8 Acute deep vein thrombosis (DVT) of brachial vein of left upper extremity I82.622 Chronicity: acute Anemia, unspecified type D64.9 Anemia type: unspecified type 05/31/18 1556 <Electronically signed by Oscar ANDRADE> Date Oscar ANDRADE Cosigner Signature: Date (if applicable) CC: Sangeetha Irvin DO ONCOLOGY VISIT REPORT Observed: 06/05/2018 Status: F Source: [place] 1:25 PM [facility] REPOSITORY [facility] [place] [address] OFFICE VISIT Date of Service: 06/05/18 1314 MR#: [id number] Acct: [id number] Name: IFEOMA ASHRAF Rep #: [id number] : 1965 From: Simeon Gresham MD Age/Sex: 53/F Location: [facility] Status: Signed Subjective - Date of Service Date of Service:: 06/05/18 - Chief Complaint Follow up DLBCL - History of Present Illness 53-year-old woman was diagnosed with non-Hodgkin's lymphoma, diffuse large B cell, stage IV of the uterine cervix with 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 She had an epidural mass with and had T4-T9 decompression laminectomy with excision of mass at T6-T8 on June 22, 2006. She received R CHOP 8 which was completed on January 16 2007. She did receive intrathecal methotrexate 4 which was completed on November 23, 2006. She had high-dose chemotherapy with autologous stem cell transplant in February 2007 at [facility] with complete remission. She is on observation, comes in for follow up. - Past Medical/Social History Past Medical History Past Medical History: Depression,Diabetes mellitus,Heart disease,Sleep apnea,Fibromyalgia Other Past Medical History: THYROID NODULE Cancer: Lymphoma Past Surgical History Surgical: Cholecystectomy Other Surgical History: HEEL SPUR SURGERY STEM CELL TRANSPLANT DECOMPRESSIVE LAMINECTOMY TO REMOVE MASS T6-7 HYSTEROSCOPY AND D Family History Paternal Past Medical History: Diabetes mellitus,Hypertension,Stroke [...] Pounds 208.2 lbs Pulse Ox 96 - Physical Exam General: Alert, Oriented x3, No apparent [...] Negative for: Lesions, Rash, Petechiae, Ecchymosis Psychiatric:: Appropriate affect, Euthymic Lymphatics:: Negative for: Cervical lymphadenopathy, Supraclavicular lymphadenopathy, Axillary lymphadenopathy Laboratory Data: Laboratory Tests Assessment and Plan NHL-DLBC stage IV. No evidence of disease clinically. Iron deficiency. Plan is to continue observation. To try Iron fumarate or Gluconate 1 tab daily. RTC 6 months with CBC/CMP/LDH. Primary Care Provider: Sangeetha Irvin DO Referring Provider: - Problem List (1) History of non-Hodgkin's lymphoma Status: Chronic (2) Iron deficiency Status: Chronic Code Visit Office Visits / Consults: 19301 OV L3 Est 06/05/18 1325 <Electronically signed by Simeon Gresham MD> Date Simeon Pacheco Signature: Date (if applicable) CC: COMPREHENSIVE METABOLIC Collected: 06/05/2018 Status: F Source: [place] 12:41 PM [facility] REPOSITORY Order Comment: Reason for Laboratory Test . Serial Specimen #1, #2 or #3? 1 TYPE CODE TESTS RESULT OUT OF RANGE REFERENCE UNITS LAB L501.0100 74-106 mg/dL High GLU 270 Result Comment: Glucose result greater than or equal to 200 mg/dL suggests DIABETES MELLITUS per A.D.A. criteria. Please note revised GLUCOSE reference range effective 2017. LAB L501.1000 7-18 mg/dL Normal BUN 14 LAB L501.1100 0.55-1.02 mg/dL Normal CREAT,SERUM 0.66 Result Comment: The validity of the calculated GFR AND GFRAA in patients over 70 years has not been determined. Clinical correlation is essential. LAB L501.1110 >60 mL/min Normal EST GFR 100 Result Comment: Non- GFR Calc LAB L501.1115 >60 mL/min Normal EST GFR - AA 121 Result Comment: GFR Calc LAB L501.1255 ml/min Normal Estimated CRCL 91.22 LAB L501.1300 10-20 RATIO High BUN/CRE 21.3 LAB L501.1500 6.4-8. g/dL Low 2 T PROT 6.2 LAB L501.1800 3.2-5. g/dL Low 0 ALB 3.1 LAB L501.1950 2.2-4. g/dL Normal 2 GLOB 3.1 LAB L501.2000 0.9-2. RATIO Normal 4 A/G 1.0 LAB L501.2200 8.5-10 mg/dL Normal .1 CA 9.4 LAB L501.4100 15-37 U/L Normal AST 29 LAB L501.4305 45-117 U/L High ALK P 175 LAB L501.4405 13-56 U/L Normal ALT 19 LAB L501.4600 0.20-1 mg/dL Normal .00 T BILI 0.50 LAB L501.5300 136-14 mmol/L Normal 5 NA 140 LAB L501.5600 3.5-5. mmol/L Normal 1 K 4.1 LAB L501.5900 98-107 mmol/L Normal CL 104 LAB L501.6100 21.0-3 mmol/L Normal 2.0 CO2 28.0 LAB L501.6200 5-15 Normal GAP 8 Performed By: #### L500.4050, L504.2610, L100.0100 #### [facility] Laboratory [address] [place], [place], [address] LDH Collected: 06/05/2018 Status: F Source: [place] 12:41 PM [facility] REPOSITORY Order Comment: Reason for Laboratory Test . Serial Specimen #1, #2 or #3? 1 TYPE CODE TESTS RESULT OUT OF RANGE REFERENCE UNITS LAB L504.2610 84-246 U/L Normal LDH 224 Performed By: #### L500.4050, L504.2610, L100.0100 #### [facility] [address] [place], [place], [address] CBC W/DIFF, AUTOMATED Collected: 06/05/2018 Status: F Source: [place] 12:41 PM [facility] REPOSITORY Order Comment: Reason for Laboratory Test . TYPE CODE TESTS RESULT OUT OF RANGE REFERENCE UNITS LAB L100.1000 4.4-11.0 K/mm3 Normal WBC 5.7 LAB L100.1200 4.2-5.4 M/mm3 Low RBC 3.40 LAB L100.1300 12.0-15.0 g/dl Low HGB 11.4 LAB L100.1400 37-47 % Low HCT 35.7 LAB L100.1500 81-99 fL High MCV 105.0 LAB L100.1600 27.0-32.0 pg High MCH 33.5 LAB L100.1700 32-36 g/gl Low MCHC 31.9 LAB L100.1810 11.6-14.6 % High RDW CV 15.6 LAB L100.1820 35.1-43.9 fl High RDW SD 59.5 LAB L100.1900 150-450 K/mm3 Normal PLT 257 LAB L100.2000 6.2-12.0 fl Normal MPV 9.4 LAB L100.2100 47-70 % Normal NEUT% 63.7 LAB L100.2200 19-41 % Low LY% 15.0 LAB L100.2300 0-10 % High MONO% 12.3 LAB L100.2400 0-5 % High EO% 8.1 LAB L100.2500 0-1 % Normal BASO% 0.7 LAB L100.2550 0.0-0.9 % Normal IM GRAN % 0.200 Result Comment: IG% - Immature Granulocytes (promyelocytes, myelocytes and metamyelocytes) > 1% indicates that a LEFT SHIFT is Present. LAB L100.2620 2.0-7.7 X10 3/uL Normal Absolute Neut 3.6 LAB L100.2720 0.83-4.51 X10 3/ul Normal Absolute Lymph 0.85 Performed By: #### L500.4050, L504.2610, L100.0100 #### [facility] [address] [place], [address] VENOUS DUPLEX UPPER Observed: 05/26/2018 Status: F Source: [place] EXTREMITY 4:36 PM [facility] REPOSITORY [facility] Cardiovascular Services [address] [place] [address] Venous Duplex US, Unilateral 05/25/18 0903 MR#: [id number] Acct: [id number] Name: IFEOMA ASHRAF Rep #: [id number] : 1965 53 From: Juanjo Russo MD Attending Dr: Sangeetha Irvin DO Status: REG CLI Ordering Dr: Sangeetha Irvin DO Date: 05/25/18 Location: CVS Sex: F C Admitted: Reason For Study: follow LUE DVT Left Proximal Left jugular vein is spontaneous, widely patent, phasic, with no intraluminal echogenicity noted. Left subclavian vein is spontaneous, widely patent, phasic, with no intraluminal echogenicity noted. Left Arm Left axillary vein is spontaneous, patent, phasic, competent, compressible and demonstrates augmentation. Left brachial vein is compressible. Left cephalic vein is compressible. Left basilic vein is compressible. Left Lower Arm Left radial vein is compressible. Left ulnar vein is compressible. Interpretation Summary Deep veins of the left upper extremity are patent and compressible segmentally. There is no evidence of deep vein thrombosis. The superficial veins of the left upper extremity, the basilic and cephalic veins, are patent and compressible. There is no evidence of left upper extremity superficial thrombophlebitis involving the veins imaged. Ordering Physician: Sangeetha Irvin Referring Physician: Sangeetha Irvin Performed By: Azucena Muñiz RVT and Student 05/26/18 1635 Date Juanjo Russo MD CC: Sangeetha Irvin DO Date Dictated: 05/25/1803 Date Transcribed: 05/26/18 1635 Supervisor Laundry: Signed CBC W/DIFF, AUTOMATED Collected: 05/25/2018 Status: F Source: [place] 9:46 AM [facility] REPOSITORY TYPE CODE TESTS RESULT OUT OF RANGE REFERENCE UNITS LAB L100.1000 4.4-11.0 K/mm3 Normal WBC 5.6 LAB L100.1200 4.2-5.4 M/mm3 Low RBC 3.21 LAB L100.1300 12.0-15.0 g/dl Low HGB 11.0 LAB L100.1400 37-47 % Low HCT 34.0 LAB L100.1500 81-99 fL High MCV 105.9 LAB L100.1600 27.0-32.0 pg High MCH 34.3 LAB L100.1700 32-36 g/gl Normal MCHC 32.4 LAB L100.1810 11.6-14.6 % High RDW CV 16.9 LAB L100.1820 35.1-43.9 fl High RDW SD 62.2 LAB L100.1900 150-450 K/mm3 Normal PLT 275 LAB L100.2000 6.2-12.0 fl Normal MPV 9.5 LAB L100.2100 47-70 % Normal NEUT% 63.4 LAB L100.2200 19-41 % Low LY% 17.0 LAB L100.2300 0-10 % High MONO% 11.6 LAB L100.2400 0-5 % High EO% 7.3 LAB L100.2500 0-1 % Normal BASO% 0.5 LAB L100.2550 0.0-0.9 % Normal IM GRAN % 0.200 Result Comment: IG% - Immature Granulocytes (promyelocytes, myelocytes and metamyelocytes) > 1% indicates that a LEFT SHIFT is Present. LAB L100.2620 2.0-7.7 X10 3/uL Normal Absolute Neut 3.5 LAB L100.2720 0.83-4.51 X10 3/ul Normal Absolute Lymph 0.95 Performed By: #### L100.0100 #### [facility] [address] [place], [address] URINALYSIS, COMPLETE Collected: 05/25/2018 Status: F Source: [place] 9:46 AM [facility] REPOSITORY Order Comment: How was Urine Obtained? CLEAN CATCH TYPE CODE TESTS RESULT OUT OF RANGE REFERENCE UNITS LAB L400.3000 Yellow COLOR Normal Yellow LAB L400.3050 Clear Normal CLARITY Clear LAB L400.3200 Normal mg/dl Normal GLUCOSE, UR Normal LAB L400.3300 Negative mg/dL High BILIRUBIN URINE 1 Result Comment: COLOR OF URINE MAY AFFECT DIPSTICK RESULTS. LAB L400.3400 Negative mg/dl Normal KETONE UR Negative LAB L400.3465 1.002-1.030 Normal SP.GR. DIPSTX 1.015 LAB L400.3550 5.0 - 8.0 pH Normal UR 8.0 LAB L400.3600 Negative mg/dl High PROT DIPSTX 15 LAB L400.3700 Normal mg/dl High UROBILI 8 LAB L400.3750 Negative Normal NITRITE UR Negative LAB L400.3780 Negative /ul Normal OCCULT Negative BLOOD-UR LAB L400.3800 Negative /ul High LEUK ESTERASE 100 LAB L400.4050 0-5 /hpf Normal WBC 0-5 SEEN LAB L400.4100 0-5 /hpf Normal RBC-UA 0-5 SEEN LAB L400.4150 5-10 /hpf Normal SQUAM EPI 0-5 SEEN LAB L400.4300 None Seen /hpf Normal BACTERIA 0 SEEN LAB L400.4350 <or=2+ /hpf Normal MUCUS, URINE 0 SEEN Performed By: #### L400.0001 #### [facility] [address], [address] MICROALB:CREAT Collected: 05/25/2018 Status: F Source: [facility] UR 9:46 AM [facility] REPOSITORY TYPE CODE TESTS RESULT OUT OF RANGE REFERENCE UNITS LAB L501.1200 NO RANGE EST. mg/dL Normal UR CREAT 139.00 LAB L502.0500 NO RANGE EST. mg/L Normal 10.9 MICROALBUMIN ,UR LAB L502.0600 <30 mg/g CRE mg/g CRE Normal 7.8 MALB:CREAT Performed By: #### L502.0250 #### [facility] [address] [place], [address] HEMOGLOBIN A1C Collected: 05/25/2018 Status: F Source: [place] 9:46 AM [facility] REPOSITORY TYPE CODE TESTS RESULT OUT OF RANGE REFERENCE UNITS LAB L501.9985 4.2-6.3 % Normal HGB A1C 5.4 Performed By: #### L501.9985 #### [facility] [address] [place], [address] COMPREHENSIVE METABOLIC Collected: 05/25/2018 Status: F Source: [place] PROFIL 9:46 AM [facility] REPOSITORY Order Comment: PLEASE ADD T3F T4F TO BLOOD FROM 05-25-G2 5 B TYPE CODE TESTS RESULT OUT OF RANGE REFERENCE UNITS LAB L501.0100 74-106 mg/dL High GLU 166 Result Comment: Fasting Glucose result greater than or equal to 126 mg/dL suggests DIABETES MELLITUS per A.D.A. criteria. Please note revised GLUCOSE reference range effective 2017. LAB L501.1000 7-18 mg/dL Normal BUN 10 LAB L501.1100 0.55-1.02 mg/dL Normal CREAT,SERUM 0.61 Result Comment: The validity of the calculated GFR AND GFRAA in patients over 70 years has not been determined. Clinical correlation is essential. LAB L501.1110 >60 mL/min Normal EST GFR 109 Result Comment: Non- GFR Calc LAB L501.1115 >60 mL/min Normal EST GFR - AA 132 Result Comment: GFR Calc LAB L501.1300 10-20 RATIO Normal BUN/CRE 16.4 LAB L501.1500 6.4-8.2 g/dL Low T PROT 6.2 LAB L501.1800 3.2-5.0 g/dL Low ALB 2.9 LAB L501.1950 2.2-4.2 g/dL Normal GLOB 3.3 LAB L501.2000 0.9-2.4 RATIO Normal A/G 0.9 LAB L501.2200 8.5-10.1 mg/dL CA Normal 9.0 LAB L501.4100 15-37 U/L High AST 38 LAB L501.4305 45-117 U/L High ALK P 149 LAB L501.4405 13-56 U/L Normal ALT 23 LAB L501.4600 0.20-1.00 mg/dL T Normal BILI 0.60 LAB L501.5300 136-145 mmol/L NA Normal 141 LAB L501.5600 3.5-5.1 mmol/L K Normal 3.9 LAB L501.5900 98-107 mmol/L CL Normal 104 LAB L501.6100 21.0-32.0 mmol/L Normal CO2 28.0 LAB L501.6200 5-15 Normal GAP 9 Performed By: #### L500.4050, L500.4100, L501.9520, L501.73467, L506.0400 #### [facility] [address] [place], [address] LIPID PROFILE Collected: 05/25/2018 Status: F Source: [place] 9:46 AM [facility] REPOSITORY Order Comment: PLEASE ADD T3F T4F TO BLOOD FROM 05-25-18 THG2 5 B TYPE CODE TESTS RESULT OUT OF RANGE REFERENCE UNITS LAB L501.4900 200 mg/dL Normal CHOL 106 Result Comment: <200 mg/dL Desirable 200-240 mg/dL Borderline >240 mg/dL High Risk LAB L501.5000 mg/dL Normal TRIG 112 Result Comment: The drugs N-Acetylcysteine and Metamizole may falsely depress this assay. Serum Triglycerides Reference Interval Normal <150 mg/dL Borderline high 150 - 199 mg/dL High 200 - 499 mg/dL Very High > or = 500 mg/dL LAB L501.6400 mg/dL Normal HDL 42 Result Comment: The drugs N-Acetylcysteine and Metamizole may falsely depress this assay. Reference Range HDL <40 mg/dL Low HDL Cholesterol HDL >or= 60 mg/dL High HDL Cholesterol LAB L501.6500 0-130 mg/dL Normal LDL 42 LAB L501.6600 5-40 mg/dL Normal VLDL 22 Performed By: #### L500.4050, L500.4100, L501.9520, L501.08567, L506.0400 #### [facility] [address] [facility] [facility] [place], [place], [address] THYROID STIM HORMONE Collected: 05/25/2018 Status: F Source: [place] (T[place]) 9:46 AM [facility] REPOSITORY Order Comment: PLEASE ADD T3F T4F TO BLOOD FROM 05-25-18 [facility] 5 B TYPE CODE TESTS RESULT OUT OF RANGE REFERENCE UNITS LAB L501.9520 0.358-3.74 uIU/mL Low TSH 0.31 Performed By: #### L500.4050, L500.4100, L501.9520, L501.92208, L506.0400 #### [facility] [address] [place], [address] FREE T3 Collected: 05/25/2018 Status: F Source: [place] 9:46 AM [facility] REPOSITORY Order Comment: PLEASE ADD T3F T4F TO BLOOD FROM 05-25-18 [facility] 5 B TYPE CODE TESTS RESULT OUT OF RANGE REFERENCE UNITS LAB L501.56921 2.18-3.98 pg/mL Normal FREE T3 3.2 Performed By: #### L500.4050, L500.4100, L501.9520, L501.09386, L506.0400 #### [facility] [address] [place], [address] T4 FREE DIRECT Collected: 05/25/2018 Status: F Source: [place] 9:46 AM [facility] REPOSITORY Order Comment: PLEASE ADD T3F T4F TO BLOOD FROM 05-25- THG2 5 B TYPE CODE TESTS RESULT OUT OF RANGE REFERENCE UNITS LAB L506.0400 0.76-1.46 ng/dL Normal T4 FREE 1.11 DIRECT Performed By: #### L500.4050, L500.4100, L501.9520, L501.54668, L506.0400 #### [facility] [address] [place], [address] DIGOXIN LEVEL Collected: 05/25/2018 Status: F Source: [place] 9:46 AM [facility] REPOSITORY TYPE CODE TESTS RESULT OUT OF RANGE REFERENCE UNITS LAB L501.7510 0.80-2.00 ng/mL Low DIG 0.71 Performed By: #### L501.7510 #### [facility] [address] [place], [address] VITAMIN B12 Collected: 05/25/2018 Status: F Source: [place] 9:46 AM [facility] REPOSITORY TYPE CODE TESTS RESULT OUT OF RANGE REFERENCE UNITS LAB L503.0105 211-911 pg/mL Normal Vitamin B12 368 Performed By: #### L503.0105, L506.1000 #### [facility] [address] [place], [address] VITAMIN D,25 HYDROXY Collected: 05/25/2018 Status: F Source: [place] 9:46 AM [facility] REPOSITORY TYPE CODE TESTS RESULT OUT OF RANGE REFERENCE UNITS LAB L506.1000 29.95-100.01 ng/mL Normal Vitamin D 64.5 25-OH Result Comment: Vitamin D 25(OH) Status Range Deficiency <20 ng/mL (50nmol/L) Insuffciency 20 - 30 ng/mL (50 - 75 nmol/L) Sufficiency 30 - 100 ng/mL (75 - 250 nmol/L) Toxicity >100 ng/mL (>250 nmol/L) Performed By: #### L503.0105, L506.1000 #### [facility] [address] [place], [address] AFP, TUMOR MARKER Collected: 05/25/2018 Status: F Source: [place] 9:46 AM [facility] REPOSITORY Order Comment: Is Patient ? N TYPE CODE TESTS RESULT OUT OF RANGE REFERENCE UNITS LAB L3300.0700 0.0-8.3 ng/mL High AFP TUMOR 10.0 2253 Result Comment: [employer] ECLIA methodology Performed at: - [facility] [id number] Roaster Helper: Omar Hood PhD, Phone: [phone] Performed By: #### L3300.0700 #### [facility] (refer to report for specific site) refer to report for address and phone number RETICULOCYTE COUNT Collected: 05/09/2018 Status: F Source: [facility] 4:44 AM [facility] REPOSITORY TYPE CODE TESTS RESULT OUT OF REFERENCE UNITS RANGE LAB RETIC 0.0 - 2.3 % COUNT(LOINC) RETIC 1.2 COUNT LAB IRF(LOINC) 0.20 - 0.46 IRF High IRF 0.54 Performed By: #### [id number] #### [facility],[address] [place] [address] IRON AND UIBC Collected: 05/09/2018 Status: F Source: [facility] 4:44 AM [facility] REPOSITORY TYPE CODE TESTS RESULT OUT OF RANGE REFERENCE UNITS LAB IRON(LOINC) 50 - 170 ug/dl IRON 66 LAB UIBC(LOINC) 155 - 355 ug/dL UIBC 173 LAB TIBC(LOINC) 250 - 450 ug/dl Low TIBC 239 LAB Sat%(LOINC) 20 - 50 % Sat% 28 Performed By: #### [id number] #### [facility],[address] [place] [address] FERRITIN Collected: 05/09/2018 Status: F Source: [facility] 4:44 [facility] REPOSITORY TYPE CODE TESTS RESULT OUT OF REFERENCE UNITS RANGE LAB FERRITIN(LO 10 - 291 ng/mL INC) FERRITIN 122 Performed By: #### [id number] #### [address] [address] FOLATES Collected: 05/09/2018 Status: F Source: [facility] 4:44 [facility] REPOSITORY TYPE CODE TESTS RESULT OUT OF REFERENCE UNITS RANGE LAB FOLATES(BRENNA 3.5 - 20.0 ng/ml NC) High FOLATES >24.0 Performed By: #### [id number] #### [place] [id number] VITAMIN B-12 Collected: 05/09/2018 Status: F Source: [facility] 4:44 [facility] TYPE CODE TESTS RESULT OUT OF REFERENCE UNITS RANGE LAB N(LOINC) 180 - 914 pg/mL VITAMIN B12 510 Performed By: #### [id number] #### [address] [address] POTASSIUM Collected: 05/08/2018 Status: F Source: [facility] 5:11 [facility] REPOSITORY TYPE CODE TESTS RESULT OUT OF REFERENCE UNITS RANGE LAB POTASSIUM( 3.5 - 5.1 mmol/L LOINC) POTASSIUM 4.4 Performed By: #### [id number] #### [address] [address] CBC (NO DIFF) Collected: 05/05/2018 Status: F Source: [facility] 4:05 [facility] REPOSITORY TYPE CODE TESTS RESULT OUT OF RANGE REFERENCE UNITS LAB CBC (NO DIFF)(LOINC ) CBC (NO DIFF) Result Comment: CBC(WITHOUT DIFFERENTIAL) LAB WBC(LOINC) 4.5 - 10.8 x 10EE3/UL WBC 4.8 LAB RBC(LOINC) 4.10 - x 10EE6/UL 5.30 RBC Low 3.56 LAB HEMOGLOBIN(LOINC 12.0 - g/dl ) 16.0 HEMOGLOBIN 12.0 LAB HEMATOCRIT(LOINC 34.0 - % ) 46.0 HEMATOCRIT 36.3 LAB MCV(LOINC) 80 - 99 fl MCV High 102 LAB MCH(LOINC) 27 - 33 pg MCH High 34 LAB MCHC(LOINC) 32 - 36 X10 3 MCHC 33 LAB RDW/CV(LOINC) 12.0 - % 15.6 RDW/CV High 23.8 LAB PLATELET(LOINC) 150 - 450 x10EE3/UL PLATELET 270 LAB MPV(LOINC) 6.6 - 10.5 fl MPV 7.8 Result Comment: {CB] Performed By: #### [id number] #### [facility],[address] [place] [address] CMP WITH EGFR Collected: 05/05/2018 Status: F Source: [facility] 4:05 AM [facility] REPOSITORY TYPE CODE TESTS RESULT OUT OF RANGE REFERENCE UNITS LAB CMP with eGFR(LOINC) CMP with eGFR Result Comment: COMPREHENSIVE METABOLIC PANEL LAB SODIUM(LOINC) 136 - 145 mmol/l SODIUM 143 LAB POTASSIUM(LOINC) 3.5 - 5.1 mmol/L Low Alert POTASSIUM 2.7 Result Comment: { CALLED TO braulio/0927 { READ BACK BY [id number]/k/lm LAB CHLORIDE(LOINC) 98 - 107 mmol/L CHLORIDE 101 LAB CO2(LOINC) 21.0 - mmol/L 31.0 CO2 High 31.5 LAB GLUCOSE(LOINC) 74 - 106 mg/dl GLUCOSE Low 69 LAB BUN(LOINC) 6 - 20 mg/dl BUN 10 LAB CREATININE(LOINC) 0.6 - 1.2 mg/dl CREATININE 0.6 LAB AST/SGOT(LOINC) 13 - 39 U/L AST/SGOT 31 LAB ALK PHOS(LOINC) 38 - 126 U/L ALK PHOS 74 LAB CALCIUM(LOINC) 8.6 - mg/dl 10.2 CALCIUM 9.1 LAB TOTAL PROTEIN(LOINC) 6.4 - 8.3 g/dl TOTAL Low PROTEIN 5.5 LAB ALBUMIN(LOINC) 3.4 - 4.8 g/dL ALBUMIN 3.5 LAB GLOBULIN(LOINC) 1.5 - 3.8 G/DL GLOBULIN 2.0 LAB A/G RATIO(LOINC) 0.9 - 1.6 A/G High RATIO 1.8 LAB TOTAL BILI(LOINC) 0.0 - 1.5 mg/dl TOTAL BILI 1.4 LAB B/C RATIO(LOINC) 0 - 30 ratio B/C RATIO 17 LAB ALT/SGPT(LOINC) 8 - 35 U/L ALT/SGPT 15 LAB ANION GAP(LOINC) 10 - 20 mmol/L ANION GAP 13 LAB AGE(LOINC) years AGE 53 LAB eGFR(LOINC) 60 - 999 ML/MINUTE eGFR >60 LAB eGFR(AA)(LOINC) 60 - 999 ML/MINUTE eGFR(AA) >60 Result Comment: ACCORDING TO THE NATIONAL KIDNEY DISEASE EDUCATION PROGRAM(NKDE), A NORMAL eGFR IS A VALUE GREATER THAN OR EQUAL TO 60 ML/MIN/1.73 SQ METERS. CHRONIC KIDNEY DISEASE: <60mL/MIN/1.73 SQ METERS KIDNEY FAILURE: <15mL/MIN/1.73 SQ METERS THIS TEST SHOULD ONLY BE USED FOR PATIENTS 18 YEARS OF AGE AND OLDER. Performed By: #### [id number] #### [facility],[address] [place] [address] NURSING PROG Observed: 04/27/2018 Status: COMPLETED Source: [place] 12:51 PM [facility] REPOSITORY HNO ID: [id number] Author: Tana MckeonRn) NAHUM Yung Service: Nursing Author Type: Registered Nurse Type: Nursing Progress Note Filed: 04/27/2018 12:54 PM Note Text: Nursing Progress Note Patient Name: Ifeoma Ashraf Patient Location: [place] [address]/[place] [address]* Daily Note:attempted to call report to [facility] . No answer. LM for them to return call to 5400 for report process. Await call. Pt ready for ambulance transport at 1300 This note was completed by: Tana Yung RN THERAPY NT Observed: 04/27/2018 Status: COMPLETED Source: [place] 11:13 AM [facility] OTHER [place] REPOSITORY HNO ID: [id number] Author: Carmen Holcomb (Ot/L) Service: Occupational Therapy Author Type: Occupational Therapist Type: Therapy (PT/OT/Speech/Resp) Filed: 04/27/2018 11:20 AM Note Text: Occupational Therapy Treatment SERVICE DATE: 04/27/2018 SERVICE TIME: 1040 to 1106 ROOM: [id number] Recommended Discharge Disposition: Acute Rehab Recommended Discharge Disposition Comments: Pt has a supportive family and is motivated to participate in therapy. She did not want OT session to end. Pt will tolerate 3hrs/day Justification For Post Acute Needs: Anticipate patient will tolerate 3 hours of daily therapy at the time of admission to post-acute setting;Good family support;Medically complex;Motivated;Willing to participate Anticipated Discharge Needs: Physical Assist at Home Physical Assist at Home for: Transfers;Ambulation;Stairs;Safety;Self Care OT Recommendations to Nursing: Encourage patient participation with in-bed ADL?s;Utilize bed in Chair Position OT 6 Clicks Score: 14 Precautions/Activity Restrictions: Fall Risk;Bed/Chair Alarm Precaution/Activity Restriction Comments: IV, tele Isolation Type: None ASSESSMENT: Patient progressing towards goals as expected. Pt seems somewhat more oriented however reports she does not know her name. Pt able to complete grooming tasks in unsupported sitting with no physical cues, requiring max verbal cues to attend to task. Pt completes cognitive tasks with max verbal cues for encouragement, very emotional when pt does not know answer. Patient Disposition at Start of Session: OOB in Chair Patient Disposition at End of Session: OOB in Chair Tolerance Limited By Cooperation;Other: See Comment (Emotions) Occupational Therapy Problem List: Cognitive Deficit;Education Deficit;Safety Deficits;Impaired Self Care;Decreased Activity Tolerance;Decreased Strength;Functional Mobility Impairment;Balance Impaired;Motor Planning Difficulties;Impaired Fine Motor Skills Patient /Caregiver Goals: Go To Rehab Goals for Plan of Care: Feeding with: Set Up Grooming with: Set Up Upper Body Dressing with: Contact Guard Assistance Toilet Transfer with: Moderate Assistance Demonstrate Positive Coping Strategies with: Minimal Assistance Increased Awareness of Cognitive Impairments as Related to ADL's/IADL's: Verbalized;Demonstrated Progress Toward Goals: Progressing as expected Due To: weakness, cognitive changes Rehab Potential: Good PLAN: Treatment Frequency (times per week): 5 (1-5) Current admission Treatment Interventions: Education;Self Care / Home Management;Energy Conservation Training;Functional Mobility Training;Cognitive Training Plan of Care developed with: Patient;Family TREATMENT INTERVENTIONS: Therapy Diagnosis: Reduced mobility-other;Decreased activities of daily living (ADL);Muscle Weakness (generalized);Abnormalities of gait and mobility-other;General symptoms and signs-other;Lack of coordination-other;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 Provided assistance, cues, fall guarding assist, sequencing to safely complete ADLs. Cognitive Training (G0515) Treatment Minutes (2018 Only): 13 $ Cognitive Training (G0515) Billed Units (2018 Only): 1 unit Skilled Intervention(s): Provided opportunity for problem solving safety assessment, pt able to answer 1/7 correctly with max cueing for initiation, termination, active problem solving, therapist provided choices for incorrect answers in order to facilitate active problem solving to increase independence with self care/increase safety awareness. At this time pt would not be safe to go home without 24 hour supervision due to decreased safety awareness. Performed Short Blessed Test on this date. A screening test in itself is insufficient to diagnose a dementing order. However, the SBT is quite sensitive to early cognitive changes associated with dementing disorders. A score in the impaired range indicate a need for further assessment. Pt scored a 25 on this date. A score of 10 or more suggests impairment consistent with dementia/cognitive impairment. Scorin-8; Normal to minimal impairment 9-19; Moderate impairment 20-28; Severe impairment Total Timed Code Treatment Minutes: 23 Total Treatment Time (minutes): 26 FUNCTIONAL G CODE: OT 6 Clicks Score: 14 (04/27/18 1040) Self Care Current Status (G8987): CL (04/23/18 151) Self Care Goal Status (G8988): CK (04/23/18 151) Based on clinical assessment and the score on the 6 Clicks Functional Assessment Tool, the G code and corresponding severity modifiers are documented above. SUBJECTIVE: Current Hospital Course: Chart reviewed; Psychiatry reporting that pt will not need inpatient psychiatric care although hallucinating multiple people in room, may discharge to SNF. Reason for Occupational Therapy Consult: encephalopathy falls Relevant Past Medical History: sepsis, chornic SDH,CHF Patient Report: Arrived with pt seated in chair and agitated, per pt when asked to identify self replies I'm not Ifeoma, I don't know you and I don't know who that is. Able to redirect pt with max verbal cues for encouragement. Pt intermittently tearful throughout therapy, does not want to be touched. Pt pleasant at end of session, showed therapist Fuzzy the Bear. Pain: 0/10 verbal Home Environment Patient Lives With: Family (has been at SNF for ~2 weeks) Assistance Available: 24 Hour Entry To Home: Stairs;Without Rail (they have a non-wheeled walker placed against house to use ) Number Of Stairs Into Home: 2 Number Of Stairs To Bed/Bath: 0 Equipment Owned: Wheeled Walker;Standard Walker;Rollator;Shower Chair Prior Functional Level: Within Functional Limits (ambulated w/rollator infrequently) OBJECTIVE: Communication Deficits: Expressive Deficits (poor social cues, word finding) Orientation Deficits: Confused Responsiveness: Alert;Awake (cooperative, non agitated) Follows Commands: 1-step Commands;Cueing Needed Cueing to Follow Commands: Moderate Attention Deficits: Distractible Memory Deficits: Short Term;Lisw (difficulty with recall) Executive Function Deficits: Sequencing;Problem Solving;Safety Awareness Sequencing Deficit: Moderate impairment Safety Awareness Deficit: Maximum impairment Problem Solving Deficit: Moderate impairment Mini Cog Score: 0 (04/13/18 1400) Psychosocial Deficit: labile, laughing/agitated mercurial moods Vision Deficits: Wears glasses;Visual attention deficit Visual Attention Deficit: Right Short Blessed Final Score: 25 CURRENT FUNCTIONAL STATUS: Current Activities of Daily Living Assist Level Feeding Minimal Assistance Grooming Minimal Assistance Bathing Upper Body Moderate Assistance Bathing Lower Body Maximal Assistance Dressing Upper Body Moderate Assistance Dressing Lower Body Moderate Assistance Toileting Maximal Assistance Instrumental Activities of Daily Living Assist Level Meal/Beverage Prep Total Assistance Light Cleaning Total Assistance Laundry Total Assistance Medication Management with Strategies Maximal Assistance Functional Mobility Assist Level Rolling Moderate Assistance Supine to Sit Moderate Assistance Sit to Supine Moderate Assistance Scooting Moderate Assistance Sit to Stand Moderate Assistance Stand to Sit Moderate Assistance Bed to Chair Moderate Assistance (walk) Wheeled Walker Toilet/Commode Moderate Assistance (BSC) Functional Mobility Moderate Assistance Wheeled Walker Balance: Static Standing Static Standing Balance: Moderate Assistance Dynamic Standing Balance: Moderate Assistance Activity Tolerance: Sitting Activity Sitting Activity: Unsupported sitting in chair Sitting Activity Tolerance (in minutes): 10 Functional Performance Test Functional PerformanceTest: (followed instruction/completed 15 sec mobility test) Please see discipline specific clinical documentation flowsheet for complete details for this therapy evaluation/treatment. SIGNATURE: Carmen Holcomb OT/L PATIENT NAME: Ifeoma [place] DATE: April 27, 2018 TIME: 11:13 AM CASE MANAGEM Observed: 04/27/2018 Status: COMPLETED Source: [place] 11:04 AM [facility] OTHER [place] REPOSITORY HNO ID: [id number] Author: Zoraida (Specialist) Adebayo Service: Care Management Author Type: (none) Type: Care Mgt Progress Note Filed: 04/27/2018 11:07 AM Note Text: This pt will be leaving @1pm. The nurse and the facility are both aware. I Notified the dad. CASE MANAGEM Observed: 04/27/2018 Status: COMPLETED Source: [place] 10:29 AM [facility] REPOSITORY HNO ID: [id number] Author: Sowmya (Rn) NAHUM Brunner Service: Care Management Author Type: Registered Nurse Type: Care Mgt Progress Note Filed: 04/27/2018 10:31 AM Note Text: CARE MANAGEMENT DISCHARGE NOTE SERVICE DATE: 04/27/2018 SERVICE TIME: 10:29 AM LOS: 20 days Chart reviewed. Plan is to discharge to [facility] today. Pt to go via COT due to risk of falls, SDH, Encephalopathy, Severe Protein malnutrition. Child Care Cook made aware. SIGNATURE: Sowmya Brunner RN PATIENT NAME: Ifeoma Ashraf DATE: April 27, 2018 TIME: 10:29 AM PAGER/CONTACT #: [phone] CNDS Observed: 04/27/2018 Status: COMPLETED Source: [place] 9:50 AM [facility] OTHER [place] REPOSITORY HNO ID: [id number] Author: Linda Scales Service: Hospital Medicine Author Type: Physician Type: Discharge Summaries Filed: 04/27/2018 9:51 AM Note Text: DISCHARGE SUMMARY PATIENT NAME: Ifeoma Ashraf Admission Information Admission Information ADMIT DATE: 04/07/2018 DISCHARGE DATE: 04/27/2018 MY DOCTORS AND MEDICAL TEAM: My Main Hospital Doctor: Linda Scales Primary Care Provider: Sangeetha Irvin MD My Medical Team Members: Treatment Team: Attending Provider: Linda Scales Consulting: Karol Quintero Consulting: Negrito Ghosh Consulting: Loly Vargas Primary Service: Bart Pedersen MY CONDITION AT DISCHARGE: Stable REASON I WAS IN THE HOSPITAL: Altered mental status, sepsis SUMMARY OF WHAT HAPPENED WHILE I WAS IN THE HOSPITAL: Patient was admitted for Altered mental status, sepsis. A 53 yr old female patient with hx of NHL SP SCT, Chronic HFrEF (15%) with ICD, HTN, DM2, ALEJANDRO, DVTs. Admitted to MICU with AMS and suspected sepsis. ? Neurology were consulted, CT was done which showed subacute to chronic hematoma that needs no surgical intervention. EEG monitoring was negative for seizures, Pt will continue keppra for 7 days for seizure prophylaxis as per neuro plan. EEG will be discontinued and daily INR should be done with plan to keep it < 1.4. ? Pt underwent Echo yesterday which showed Pacemaker/ defibrillator wire in RV, severe LV systolic function with LVEF of 25-30%, diastolic dysfunction and moderate pulmonary HTN. ? Patient had 2 units of FFP transfused yesterday for INR of 1.75. Her mental status is fluctuating as sometimes she follow commands but others she doesn't. She's awake and oriented at times to herself but not to place or time. She still has BL LL moderate pitting edema. Neurology con't to follow up and a cause for her altered mental status was not really found despite an LP. She had an episode of hallucinations and psych was consult. She was placed on Haldol A repeat head ct was repeated regarding her questionable chronic subdural vs hygroma and restarting eliquis. Neurosurgery was ok with restarting Eliquis OTHER PROBLEMS/DIAGNOSIS: Active Problems: Implantable cardioverter-defibrillator (ICD) in situ LV dysfunction Obesity Altered mental state SDH (subdural hematoma) (HCC) Encephalopathy Obesity, Class II, BMI 35-39.9 Chronic combined systolic and diastolic CHF (congestive heart failure) (HCC) Severe protein-calorie malnutrition (HCC) Resolved Problems: Lactic acidosis Coagulopathy (HCC) OPERATIONS PERFORMED WHILE IN THE HOSPITAL: None IMPORTANT TEST/PROCEDURES: Lumbar Puncture Echocardiogram CT Scan TEST RESULTS NOT AVAILABLE AT THIS TIME: No pending results Discharge Disposition Intermediate Facility Activity When You Leave the Hospital Activity Resume pre-hospital activity Diet Instructions Diet Resume pre-hospital diet Follow Up Appointments Follow-Up Appointment With: [facility] General neurology or local neurologist When: In 6 weeks Follow-Up Appointment When: In 6 weeks Bebeto Oconnell [phone] [facility] [address] PCP Requested Referral Additional Provider to Provider Information: 1. Acute encephlopathy - 2. 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 Depression - 4. Hallucinations - 5. History of NHL 6. CHronic systolic CHF - 7. History of DVT - 8. Nausea with vomiting - FOLLOW-UP APPOINTMENTS ALREADY SCHEDULED WITH A [facility] PROVIDER: No future appointments. DISCHARGE MEDICATION: Current Discharge Medication List START taking these medications simethicone, chewable (MYLICON) 80 mg Take 80 mg by mouth four times daily as needed. haloperidol (HALDOL) 1 mg Take 1 mg by mouth twice daily. Qty: 10 tablet Refills: 0 Associated Diagnoses:Altered mental status, unspecified altered mental status type CONTINUE these medications which have CHANGED carvedilol (COREG) 3.125 mg Take 3.125 mg by mouth twice daily with meals. lamoTRIgine (LaMICtal) 150 mg Take 150 mg by mouth daily at bedtime. melatonin 9 mg Take 9 mg by mouth daily at bedtime. CONTINUE these medications which have NOT CHANGED folic acid 1 mg Take 1 mg by mouth twice daily. mirtazapine (REMERON) 15 mg Take 15 mg by mouth daily at bedtime. senna (SENOKOT) 8.6 mg Take 8.6 mg by mouth once daily as needed (constipation). omeprazole (PriLOSEC) 20 mg Take 20 mg by mouth once daily. ondansetron (ZOFRAN) 4 mg Take 4 mg by mouth every 8 hours as needed for Nausea/Vomiting. venlafaxine ER (EFFEXOR XR) 150 mg Take 150 mg by mouth once daily. apixaban (ELIQUIS) 5 mg Take 5 mg by mouth twice daily. cholecalciferol (VITAMIN D3) 5,000 Units Take 5,000 Units by mouth once daily. levothyroxine (SYNTHROID) 75 mcg Take 75 mcg by mouth daily before breakfast. simvastatin (ZOCOR) 10 mg Take 10 mg by mouth daily at bedtime. digoxin (LANOXIN) 125 mcg tablet TAKE ONE TABLET BY MOUTH ONCE DAILY Qty: 30 tablet Refills: 3 furosemide (LASIX) 40 mg Take 40 mg by mouth once daily. Qty: 90 tablet Refills: 1 STOP taking these medications nitrofurantoin monohydrate and macrocrystal (MACROBID) 100 mg Comments: Reason for Stopping: gabapentin (NEURONTIN) 100 mg Comments: Reason for Stopping: metOLAzone (ZAROXOLYN) 2.5 mg Comments: Reason for Stopping: TIME OF CARE: Discharge Management: I personally spent greater than 30 minutes involved in the discharge management of this patient. SIGNATURE: Linda Scales DO PAGER/CONTACT #: DATE: April 27, 2018 TIME: 9:50 AM PROGRESS Observed: 04/27/2018 Status: COMPLETED Source: [address] 9:36 AM CLINIC OTHER CAMPUS REPOSITORY HNO ID: [id number] Author: Linda Scales Service: Hospital Medicine Author Type: Physician Type: Progress Notes Filed: 04/27/2018 9:41 AM Note Text: DEPARTMENT OF HOSPITAL MEDICINE PROGRESS NOTE SERVICE DATE: 04/27/2018 SERVICE TIME: 9:36 AM Hospital Medicine/Primary Attending: Linda Scales DO NIGHT AND WEEKEND COVERAGE: After 7pm please page [phone] CHIEF COMPLAINT: I'm ok SUBJECTIVE: Pt seen and examined. Feels ok. Had some confusion last night. 5.5 DOesn't [address] where she is at. All services have signed off OBJECTIVE: PHYSICAL EXAM: BP 102/58 Pulse 91 Temp (Src) 97.9 (Oral) Resp 18 Ht 5' 6 (1.68m) Wt 182 lb 15.7 oz (83.0kg) SpO2 100% LMP 06/06/2006 BMI 29.55 kg/(m2). General - AANDOx2, NAD, Calm CV - RRR S1 S2, No M/R/G RESP - CTA B/L No wheezes, ronchi, rales ABD - soft, NT, ND +BS EXT - no gross joint deformity, no clubbing, cyanosis, edema NEURO - CN II-XII grossly intact, no focal deficits MEDICATIONS: Current hospital medications: haloperidol 1 mg tab(s) (HALDOL) 1 mg ORAL BID haloperidol lactate 1 mg injection (HALDOL) 1 mg INTRAMUSCULAR BID haloperidol lactate 1 mg injection (HALDOL) 1 mg INTRAVENOUS BID lamoTRIgine (LaMICtal) tab(s) 150 mg 150 mg ORAL AT BEDTIME mirtazapine 15 mg (REMERON) 15 mg ORAL AT BEDTIME venlafaxine ER 150 mg cap(s) (EFFEXOR XR) 150 mg ORAL DAILY WITH BREAKFAST ondansetron (PF) 4 mg injection (ZOFRAN) 4 mg INTRAVENOUS q 6 H PRN potassium chloride 40 mEq oral powder (KLOR-CON) 40 mEq ORAL DAILY magnesium oxide 400 mg tab(s) (MAG-OX) 400 mg ORAL BID melatonin 9 mg tab(s) 9 mg ORAL AT BEDTIME pill lens generator (patient-specific) 1 Each Miscell. (Med.Supl.;Non- Drugs) PRN simethicone, chewable 80 mg tab(s) (MYLICON) 80 mg ORAL QID PRN bisacodyl 10 mg suppository (DULCOLAX) 10 mg RECTAL DAILY PRN acetaminophen 325-650 mg tab(s) (TYLENOL) 325-650 mg ORAL q 6 H PRN atorvastatin 10 mg tab(s) (LIPITOR) 10 mg ORAL AT BEDTIME folic acid 1 mg tab(s) 1 mg ORAL BID levothyroxine 75 mcg tab(s) (SYNTHROID) 75 mcg ORAL BEFORE BREAKFAST DAILY dextrose 40 % 15 g 15 g ORAL PRN glucagon 1 mg injection (GLUCAGEN) 1 mg INTRAMUSCULAR PRN dextrose 50% in water 25 mL syringe 12.5 g INTRAVENOUS PRN carvedilol 3.125 mg tab(s) (COREG) 3.125 mg ORAL BID w MEALS digoxin 0.125 mg tab(s) (LANOXIN) 0.125 mg ORAL DAILY DATA: Diagnostic tests reviewed for today's visit: CBC: Recent Labs 04/26/18 2346 WBC 4.40 RBC 3.31* HB 10.9* HCT 34.9 PLT 239 MCV 105.4* MCH 32.9* MPV 10.1 RDW 23.9* Coags: No results for input(s): INR, APTT in the last 24 hours. Invalid input(s): PT BMP: Recent Labs 04/26/18 2346 NA 141 K 3.6 CHLOR 104 CO2 28 BUN 11 CREAT 0.71 GLUC 91 CMP: Recent Labs 04/26/18 2346 NA 141 K 3.6 CHLOR 104 CO2 28 BUN 11 CREAT 0.71 GLUC 91 CA 8.7 ANION 13 Cardiac Enzymes: No results for input(s): CK, MB, CKMB, TROPT in the last 24 hours. Liver Function, Amylase, Lipase: No results for input(s): TPROT, ALB, ALT, AST, ALKPHOS, TBILI, AMYLASE, LIPASE, LACTATE in the last 24 hours. MG/PHOS: No results for input(s): MG, P in the last 24 hours. Renal Panel: Recent Labs 04/26/18 2346 CREAT 0.71 BUN 11 GLUC 91 CA 8.7 CHLOR 104 K 3.6 CO2 28 NA 141 Heme: No results for input(s): RETICP, ABSRETIC, LD, RAISA, FE, TIBC, TRANSFERSAT in the last 24 hours. No results found for: UALBCR Assessment/Plan 1. Acute encephlopathy - unclear etiology. Seems to be waxing and waining. Neuro signed off. Can't have MRI due to pacer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 cm (5' 6) Admission Weight: 101.2 kg (223 lb 1.7 oz) Current Weight: 82.7 kg (182 lb 5.1 oz) Body mass index is 29.43 kg/m?. overweight Weight has decreased by 13.9 kg over 10 days representing 14.3 % weight change. Suspect wt change related to poor PO intake over the past 10 days. Pt with very poor po intake for past 17 days (since admission). Last Wt 04/23/2018 82.7 kg - +1 generalized edema, +1 bilateral lower extremity edema 04/20/2018 88 kg - +1 generalized edema 04/18/2018 84 kg 04/16/2018 ?94.3 kg +1 R lower extremity edema, +2 left lower extremity edema 04/15/2018 ?95.5 kg 04/14/2018 ?94.8 kg 04/13/2018 ?96.6 kg- +1 generalized edema 04/12/2018 ?98.6 kg 04/11/2018 ?102.2 kg 04/10/2018 ???105.8 kg 04/09/2018 ??102.5 kg 04/08/2018 ??106.3 kg - bed weight 04/07/2018 ??101.2 kg - bed weight - noting +1 generalized edema, +2 bilateral upper extremity edema, +3 lower extremity edema 03/08/17 : 98.4 kg (217 lb) 11/10/16 : 99.8 kg (220 lb) 01/01/16 : 106.1 kg (234 lb) 09/02/15 : 108.6 kg (239 lb 6.4 oz) 04/11/15 : 109.8 kg (242 lb) 03/15/15 : 113.9 kg (251 lb) 05/08/14 : 116.1 kg (256 lb) 01/21/14 : 101.3 kg (223 lb 6.4 oz) 12/26/13 : 101.2 kg (223 lb) 08/31/13 : 105.2 kg (232 lb) 06/08/13 : 108.4 kg (239 lb) 05/04/13 : 113.9 kg (251 lb) 03/28/13 : 128.8 kg (284 lb) 06/12/12 : 120.2 kg (265 lb) 05/16/12 : 121.7 kg (268 lb 4.8 oz) 04/25/12 : 118 kg (260 lb 3.2 oz) 07/14/11 : 129.7 kg (286 lb) 03/03/11 : 131.1 kg (289 lb) 07/27/10 : 135.2 kg (298 lb) [place] Body Weight: 59.1kg Resting Metabolic Rate: 1605 Estimated kilocalorie needs: 4177-4508?kilocalories determined by 25-30?kcal/kg Estimated protein needs: 59-71?grams determined by 1.0-1.2 g/kg?[place]?weight Estimated fluid needs: 2000?milliliters based on guidelines for patient's with CHF dx NUTRITION FOCUSED PHYSICAL EXAM: Subcutaneous Fat Loss Orbital No fat loss Triceps No fat loss Mid-axillary at the iliac crest No fat loss Muscle Loss Locations: Temporalis No muscle loss Pectoralis Mild Deltoids No muscle loss Interosseous Mild Latissimus dorsi, trapezius Unable to determine at this time Quadriceps Moderate Gastrocnemius Moderate Potential micronutrient deficiency revealed in: Skin - pallor Edema: No Ascites: No Assessment of Functional Status: Able to do little activity and spend most of the day in bed or chair for a duration of 17 days Temperature Max in 24 hours: Temp (24hrs), Av.6 ?C (97.8 ?F), Min:36.5 ?C (97.7 ?F), Max:36.6 ?C (97.9 ?F) BP 100/87 Pulse 106 Temp 36.6 ?C (97.9 ?F) Resp 16 Ht 167.6 cm (5' 6) Wt 82.7 kg (182 lb 5.1 oz) LMP 06/06/2006 SpO2 98% BMI 29.43 kg/m? Recent Labs 04/24/18 0515 GLUC 105* BUN 9 CREAT 0.70 NA 141 K 3.5 CHLOR 103 CO2 28 HB 11.6 HCT 37.6 WBC 5.46 Potential Signs of Inflammation: hyperglycemia, CHF, SDH ALLERGIES Allergen Reactions - Aleve [Naproxen Sod* Swelling - Amitriptyline Other: See Comments - Latex Rash - Sulfa (Sulfonamide * Rash - Tape [Adhesive Tape* Other: See Comments Adhesives on tape Current Facility-Administered Medications: mirtazapine 15 mg (REMERON) 15 mg ORAL AT BEDTIME venlafaxine ER 150 mg cap(s) (EFFEXOR XR) 150 mg ORAL DAILY WITH BREAKFAST ondansetron (PF) 4 mg injection (ZOFRAN) 4 mg INTRAVENOUS q 6 H PRN potassium chloride 40 mEq oral powder (KLOR-CON) 40 mEq ORAL DAILY magnesium oxide 400 mg tab(s) (MAG-OX) 400 mg ORAL BID QUEtiapine 50 mg tablet (SEROquel) 50 mg ORAL AT BEDTIME melatonin 9 mg tab(s) 9 mg ORAL AT BEDTIME pill lens generator (patient-specific) 1 Each Miscell. (Med.Supl.;Non- Drugs) PRN simethicone, chewable 80 mg tab(s) (MYLICON) 80 mg ORAL QID PRN bisacodyl 10 mg suppository (DULCOLAX) 10 mg RECTAL DAILY PRN acetaminophen 325-650 mg tab(s) (TYLENOL) 325-650 mg ORAL q 6 H PRN atorvastatin 10 mg tab(s) (LIPITOR) 10 mg ORAL AT BEDTIME folic acid 1 mg tab(s) 1 mg ORAL BID levothyroxine 75 mcg tab(s) (SYNTHROID) 75 mcg ORAL BEFORE BREAKFAST DAILY dextrose 40 % 15 g 15 g ORAL PRN Or glucagon 1 mg injection (GLUCAGEN) 1 mg INTRAMUSCULAR PRN Or dextrose 50% in water 25 mL syringe 12.5 g INTRAVENOUS PRN carvedilol 3.125 mg tab(s) (COREG) 3.125 mg ORAL BID w MEALS digoxin 0.125 mg tab(s) (LANOXIN) 0.125 mg ORAL DAILY Intake/Output 04/20/18699 - 04/21/1859 04/21/18699 - 04/22/1859 04/22/18699 - 04/23/1859 04/23/18699 - 04/24/18 0659 04/24/18 07 - 04/25/18 0659 Intake (ml) 920 580 240 720 0 Output (ml) 0 50 1 -- -- Net (ml) 920 530 239 720 0 Pressure Injury 04/09/18 1045 Coccyx (Active) Stage Injury 1 04/23/2018 9:25 PM Litigation Specialist Related Pressure Injury No 04/23/2018 9:25 PM Dressing Status None: Open to Air 04/23/2018 9:25 PM Frequency of Dressing Change Every 3 Days 04/17/2018 7:30 PM Dressing Change Due 04/18/18 04/17/2018 7:30 PM Dressing/Treatment Type Protective Barrier Paste 04/23/2018 9:25 PM Drainage Description None 04/23/2018 9:25 PM Drainage Amount None 04/23/2018 9:25 PM Odor No 04/23/2018 9:25 PM Wound Surface Color [place] 04/23/2018 9:25 PM Surrounding Skin Intact;Dry 04/23/2018 9:25 PM Number of days: 14 Surgical Incision 04/15/18 1224 Back - Middle (Active) Dressing Status Clean, Dry AND Intact 04/17/2018 7:30 PM Frequency of Dressing Change As Needed 04/17/2018 7:30 PM Dressing /Treatment Type Band Aid 04/16/2018 8:32 AM Drainage Description None 04/17/2018 7:30 PM Drainage Amount None 04/17/2018 7:30 PM Edges Intact 04/17/2018 7:30 PM Hematoma No 04/17/2018 7:30 PM Number of days: 8 MNT Billing Type: Re-assess/15 min 5 units SIGNATURE: Domi Arita RD PATIENT NAME: Ifeoma Ashraf DATE: April 24, 2018 TIME: 9:41 AM PAGER: [phone] CONSULT PROG Observed: 04/24/2018 Status: COMPLETED Source: [place] 9:25 AM [facility] REPOSITORY HNO ID: [id number] Author: Robyn Chavez (Pa) Service: Neurology Author Type: Physician Matcher Operator Type: Consult Progress Note Filed: 04/24/2018 9:32 AM Note Text: NEUROLOGY CONSULT PROGRESS NOTE SERVICE DATE: 04/24/2018 SERVICE TIME: 9:25 AM Current Attending Provider: Maricruz Manrique Subjective Interval History: Today, Ifeoma is unchanged. Very frustrated with her inability to remember. She remains pleasantly confused. No new events or changes overnight. Objective Physical Examination: Neurological: ? Mental Status: She is oriented to person and age only. She does follow commands. Cranial Nerves: CNII: Visual acuity normal, Visual rosario full to confrontation, No APD noted on exam CNIII, IV, : Pupils equal, round and reactive to light, full extraoccular movements without nystagmus CN V: Facial sensation intact bilaterally to fine touch, masseter 5/5 CN VII: Facial muscles symmetric and strong, No noted facial droop CN VIII: Hearing intact to voice. CN IX: Gag Reflex Not Examined CN X: Palate elevates symmetrically CN XI: Full strength shoulder shrug bilaterally ? CN XII: Tongue protrusion full and midline Motor Exam: ? Muscle Tone: Normal ? Strength today in the bilateral extremities is 5/5 ? Reflexes: Not tested ? Sensation: Intact to light touch. ? Coordination: Not tested. ? Gait: Not tested. New Labs: WBC (thou/cmm) Date Value 04/24/2018 5.46 04/23/2018 4.89 04/22/2018 6.00 RBC (mil/cmm) Date Value 04/24/2018 3.51 04/23/2018 3.72 04/22/2018 3.88 Platelet Count (thou/cmm) Date Value 04/24/2018 200 04/23/2018 217 04/22/2018 222 BUN (mg/dL) Date Value 04/24/2018 9 04/23/2018 8 04/22/2018 8 Creatinine (mg/dL) Date Value 04/24/2018 0.70 04/23/2018 0.62 04/22/2018 0.65 CBC, Coags, BMP, Mg, Phos Recent Labs 04/24/18 0515 04/23/18 0430 04/22/18 0815 NA 141 140 135* K 3.5 3.5 3.6 CHLOR 103 102 101 CO2 28 29 28 GLUC 105* 102* 122* CA 8.9 9.0 9.2 DATA: Diagnostic tests reviewed for today's visit: Most recent labs and imaging results. Impression/Recommendations 1) Encephalopathy - Unclear etiology, likely multifactorial; chronic SDH and electrolyte imbalance contributing - LP/CSF unremarkable. - Lamictal level elevated at 20.7- Will decrease dose to 150mg daily and can be rechecked in 2-3 weeks. Patient agreeable to this adjustment - Ammonia WNL - Unable to get MRI d/t pacemaker leads - UA neg 2) SDH - chronic - nonsurgical - Keppra ppx completed 3) H/o DVT -On Eliquis 4) Non-Hodgkins lymphoma - CSF cytology negative for malignant cells. Will sign off. Please call w/ questions or concerns. SIGNATURE: Robyn Chavez PA-C PATIENT NAME: Ifeoma Ashraf DATE: April 24, 2018 TIME: 9:25 AM PAGER/CONTACT #: [phone] [email or web address] Collected: 04/24/2018 Status: F Source: [facility] 6:17 AM HEALTH SYSTEM REPOSITORY TYPE CODE TESTS RESULT OUT OF REFERENCE UNITS RANGE LAB GLUBL(LOINC 70-99 mg/dL ) High Glucose Meter 123 Result Comment: RN NOTIFIED Performed By: #### GLMET #### [place] [address] BASIC PANEL Collected: 04/24/2018 Status: F Source: [facility] 5:15 AM HEALTH SYSTEM REPOSITORY TYPE CODE TESTS RESULT OUT OF REFERENCE UNITS RANGE LAB NA(LOINC) 136-145 mEq/L Sodium Blood 141 LAB K(LOINC) 3.5-5.1 mEq/L Potassium Blood 3.5 LAB CL(LOINC) 98-107 mEq/L Chloride Blood 103 LAB CO2(LOINC) 21-32 mEq/L CO2 Blood 28 LAB GLU(LOINC) 70-99 mg/dL Glucose High Blood 105 LAB BUN(LOINC) 7-18 mg/dL BUN Blood 9 LAB CREA(LOINC 0.51-0.95 mg/dL ) Creatinine Blood 0.70 LAB CA(LOINC) 8.5-10.1 mg/dL Calcium Blood 8.9 LAB ANGAP(LOIN 8-16 C) Anion Gap 14 Performed By: #### P8 #### [place] [address] HEMOGRAM Collected: 04/24/2018 Status: F Source: [facility] 5:15 AM HEALTH SYSTEM REPOSITORY TYPE CODE TESTS RESULT OUT OF REFERENCE UNITS RANGE LAB WBC(LOINC) 3.98-10.04 thou/cmm WBC 5.46 LAB RBC(LOINC) 3.93-5.22 mil/cmm Low RBC 3.51 LAB HGB(LOINC) 11.2-15.7 g/dL Hgb 11.6 LAB HCT(LOINC) 34.1-44.9 % Hct 37.6 LAB MCV(LOINC) 79.4-94.8 fl High MCV 107.1 LAB MCH(LOINC) 25.6-32.2 pg High MCH 33.0 LAB MCHC(LOINC) 31.6-34.8 % Low MCHC 30.9 LAB RDW(LOINC) 11.7-14.4 % High RDW 23.9 LAB RDWSD(LOINC 36.4-46.3 fl ) High RDW SD 95.5 LAB PLT(LOINC) 182-369 thou/cmm Platelet 200 LAB MPV(LOINC) 9.4-12.3 fl MPV 10.2 Performed By: #### CBC1 #### [place] [address] THERAPY NT Observed: 04/23/2018 Status: COMPLETED Source: [place] 4:20 PM [facility] OTHER [facility] REPOSITORY HNO ID: [id number] Author: Amada Ching/Leela Whitt Service: Occupational Therapy Author Type: Occupational Therapist Type: Therapy (PT/OT/Speech/Resp) Filed: 04/23/2018 4:30 PM Note Text: Occupational Therapy Treatment SERVICE DATE: 04/23/2018 SERVICE TIME: 1515 to 1550 ROOM: [id number] Recommended Discharge Disposition: Acute Rehab Recommended Discharge Disposition Comments: Pt has a supportive family and is motivated to participate in therapy. She did not want OT session to end. Pt will tolerate 3hrs/day Justification For Post Acute Needs: Anticipate patient will tolerate 3 hours of daily therapy at the time of admission to post-acute setting;Good family support;Medically complex;Motivated;Willing to participate Anticipated Discharge Needs: Physical Assist at Home Physical Assist at Home for: Transfers;Ambulation;Stairs;Safety;Self Care OT Recommendations to Nursing: Encourage patient participation with in-bed ADL?s;Utilize bed in Chair Position OT 6 Clicks Score: 13 Precautions/Activity Restrictions: Fall Risk;Bed/Chair Alarm Precaution/Activity Restriction Comments: IV, tele Isolation Type: None ASSESSMENT: Patient presents with improvement in activity tolerance, strength and mobility. Pt completes sitting and standing activities and asks for more therapy. Requires skilled OT for cognitive training, safety, self care and mobility. Patient Disposition at Start of Session: Supine in Bed Patient Disposition at End of Session: OOB in Chair;Call Sidhu in Reach;Chair Alarm;Family Present Tolerance Limited By (patient very upset/anxious) Occupational Therapy Problem List: Cognitive Deficit;Education Deficit;Safety Deficits;Impaired Self Care;Decreased Activity Tolerance;Decreased Strength;Functional Mobility Impairment;Balance Impaired;Motor Planning Difficulties;Impaired Fine Motor Skills Patient /Caregiver Goals: Go To Rehab Goals for Plan of Care: Feeding with: Set Up Grooming with: Set Up Upper Body Dressing with: Contact Guard Assistance Toilet Transfer with: Moderate Assistance Demonstrate Positive Coping Strategies with: Minimal Assistance Increased Awareness of Cognitive Impairments as Related to ADL's/IADL's: Verbalized;Demonstrated Progress Toward Goals: Progressing as expected Due To: weakness, cognitive changes Rehab Potential: Good PLAN: Treatment Frequency (times per week): 5 (1-5) Current admission Treatment Interventions: Education;Self Care / Home Management;Energy Conservation Training;Functional Mobility Training;Cognitive Training Plan of Care developed with: Patient;Family TREATMENT INTERVENTIONS: Therapy Diagnosis: Reduced mobility-other;Decreased activities of daily living (ADL);Muscle Weakness (generalized);Abnormalities of gait and mobility-other;General symptoms and signs-other;Lack of coordination-other;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;Signs and Symptoms Involving Cognitive Functions and Awareness Interventions Provided: Therapeutic Activity (91401);Self Detention Management (95860) Therapeutic Activity (05132) Treatment Minutes: 10 1 unit Skilled Intervention(s): Instructed patient in log roll technique Instructed patient in supine to sit pushing with upper extremities to sit up Instructed patient in supine to and from sit pushing with upper extremities to sit up Instruction in sit to stand technique with proper hand placement and body positioning at edge of bed/chair Instruction in stand to sit technique with lower extremities touching chair/bed and reaching back for surface Instruction in sit to and from stand technique with proper hand placement and body positioning at edge of bed/chair Education with safe use of walker. Pt attempts to abandon walker and leave walker far in front of self when attempting walk backwards toward chair. Pt needs physical assist to adjust due to low cog. Self Detention Management (09452) Treatment Minutes: 28 2 units Skilled Intervention(s): Instructed in energy conservation as applies to self care Provided cuing for hand/oral hygiene seated grooming. Pt requires mod verbal cues to stay on task and to complete task. Pt tends to stop mid task. Provided instruction, cuing and facilitation for lower body dressing Pt able to doff socks when seated. Pt began to get distracted donning left sock and needed mod redirection and altered environment to encourage focusing in task. Pt lost ability attend to task and requred a rest break before donning right sock. Pt impulsive and tries to use gown as sock. OT had to make eye contact with pt to redirect and take task 1 step at a time with a command for every step of task. Pt was successful. Education in importance of mobility for ohysical and mental health. Pt agrees to sit in chair for every meal to start to increase mobility in the hospital. Total Timed Code Treatment Minutes: 38 Total Treatment Time (minutes): 38 FUNCTIONAL G CODE: OT 6 Clicks Score: 13 (04/23/18 1515) Self Care Current Status (G8987): CL (04/23/18 1515) Self Care Goal Status (G8988): CK (04/23/18 1515) Based on clinical assessment and the score on the 6 Clicks Functional Assessment Tool, the G code and corresponding severity modifiers are documented above. SUBJECTIVE: Current Hospital Course: Chart reviewed and no significant medical updates relevant to therapy were noted Reason for Occupational Therapy Consult: encephalopathy falls Relevant Past Medical History: sepsis, chornic SDH,CHF Patient Report: I did it! I can go home right? One day I can go home? pt childlike affect. Motivated to return home after rehab Home Environment Patient Lives With: Family (has been at SNF for ~2 weeks) Assistance Available: 24 Hour Entry To Home: Stairs;Without Rail (they have a non-wheeled walker placed against house to use ) Number Of Stairs Into Home: 2 Number Of Stairs To Bed/Bath: 0 Equipment Owned: Wheeled Walker;Standard Walker;Rollator;Shower Chair Prior Functional Level: Within Functional Limits (ambulated w/rollator infrequently) OBJECTIVE: Communication Deficits: Expressive Deficits (poor social cues, word finding) Orientation Deficits: Confused Responsiveness: Alert;Awake (cooperative, non agitated) Follows Commands: 1-step Commands;Cueing Needed Cueing to Follow Commands: Moderate Attention Deficits: Distractible Memory Deficits: Short Term;Lisw (difficulty with recall) Executive Function Deficits: Sequencing;Problem Solving;Safety Awareness Sequencing Deficit: Moderate impairment Safety Awareness Deficit: Maximum impairment Problem Solving Deficit: Moderate impairment Mini Cog Score: 0 (04/13/18 1400) Psychosocial Deficit: pleasant, cooperative, laughes to cover deficits Vision Deficits: Wears glasses;Visual attention deficit Visual Attention Deficit: Right CURRENT FUNCTIONAL STATUS: Current Activities of Daily Living Assist Level Feeding Minimal Assistance (poor attention, assist for caloric intake) Grooming Moderate Assistance (fatigues and decrease attention) Bathing Upper Body Moderate Assistance Bathing Lower Body Maximal Assistance Dressing Upper Body Moderate Assistance Dressing Lower Body Moderate Assistance Toileting Maximal Assistance Instrumental Activities of Daily Living Assist Level Meal/Beverage Prep Total Assistance Light Cleaning Total Assistance Laundry Total Assistance Medication Management with Strategies Maximal Assistance Functional Mobility Assist Level Rolling Moderate Assistance Supine to Sit Moderate Assistance Sit to Supine Moderate Assistance Scooting Moderate Assistance Sit to Stand Moderate Assistance Stand to Sit Moderate Assistance Bed to Chair Moderate Assistance (walk) Wheeled Walker Toilet/Commode Moderate Assistance (BSC) Functional Mobility Moderate Assistance Wheeled Walker Balance: Static Standing Static Standing Balance: Moderate Assistance Dynamic Standing Balance: Moderate Assistance Activity Tolerance: Sitting Activity Sitting Activity: EOB grooming Sitting Activity Tolerance (in minutes): 15 Standing Activity: marching, reaching Standing Activity Tolerance (in minutes): 8 (with rest breaks) Functional Performance Test Functional PerformanceTest: (followed instruction/completed 15 sec mobility test) Please see discipline specific clinical documentation flowsheet for complete details for this therapy evaluation/treatment. SIGNATURE: JOCELIN Macias/Jimmy PATIENT NAME: Ifeoma Ashraf DATE: April 23, 2018 TIME: 4:20 PM PROGRESS Observed: 04/23/2018 Status: COMPLETED Source: [facility] 4:10 PM CLINIC OTHER CAMPUS REPOSITORY HNO ID: [id number] Author: Maricruz Manrique Service: Hospital Medicine Author Type: Physician Type: Progress Notes Filed: 04/23/2018 4:49 PM Note Text: INTERNAL MEDICINE PROGRESS NOTE SERVICE DATE: 04/23/2018 SERVICE TIME: 4:10 PM ADMITTING PHYSICIAN: Agapito Mckenna) Keshawn Subjective CHIEF COMPLAINT: f/u medical issues listed below Current Facility-Administered Medications: mirtazapine 15 mg (REMERON) 15 mg ORAL AT BEDTIME venlafaxine ER 150 mg cap(s) (EFFEXOR XR) 150 mg ORAL DAILY WITH BREAKFAST ondansetron (PF) 4 mg injection (ZOFRAN) 4 mg INTRAVENOUS q 6 H PRN potassium chloride 40 mEq oral powder (KLOR-CON) 40 mEq ORAL DAILY magnesium oxide 400 mg tab(s) (MAG-OX) 400 mg ORAL BID QUEtiapine 50 mg tablet (SEROquel) 50 mg ORAL AT BEDTIME melatonin 9 mg tab(s) 9 mg ORAL AT BEDTIME pill lens generator (patient-specific) 1 Each Miscell. (Med.Supl.;Non- Drugs) PRN simethicone, chewable 80 mg tab(s) (MYLICON) 80 mg ORAL QID PRN bisacodyl 10 mg suppository (DULCOLAX) 10 mg RECTAL DAILY PRN acetaminophen 325-650 mg tab(s) (TYLENOL) 325-650 mg ORAL q 6 H PRN atorvastatin 10 mg tab(s) (LIPITOR) 10 mg ORAL AT BEDTIME folic acid 1 mg tab(s) 1 mg ORAL BID levothyroxine 75 mcg tab(s) (SYNTHROID) 75 mcg ORAL BEFORE BREAKFAST DAILY dextrose 40 % 15 g 15 g ORAL PRN Or glucagon 1 mg injection (GLUCAGEN) 1 mg INTRAMUSCULAR PRN Or dextrose 50% in water 25 mL syringe 12.5 g INTRAVENOUS PRN carvedilol 3.125 mg tab(s) (COREG) 3.125 mg ORAL BID w MEALS digoxin 0.125 mg tab(s) (LANOXIN) 0.125 mg ORAL DAILY lamoTRIgine 200 mg tab(s) (LaMICtal) 200 mg ORAL AT BEDTIME INTERVAL HISTORY OF PRESENT ILLNESS: No new issues Objective PHYSICAL EXAM: Patient Vitals for the past 24 hrs: BP Temp Temp src Pulse Resp SpO2 Weight 04/23/18 0638 - - - - - - 82.7 kg (182 lb 5.1 oz) 04/23/18 0420 144/67 36.4 ?C (97.5 ?F) Oral 87 16 100 % - 04/22/18 1808 126/86 36.8 ?C (98.2 ?F) Oral 101 18 99 % - Body mass index is 29.43 kg/m?. GENERAL: Alert, no distress, cooperative SKIN: No rash LUNGS: Lungs clear to auscultation. Good diaphragmatic excursion. CARDIAC: Normal S1 and S2; no rubs, murmurs, or gallops ABDOMEN: Abdomen soft, non-tender EXTREMITIES: Extremities normal, no deformities, edema, clubbing or skin discoloration. , No ulcers NEURO: Alert DATA: Diagnostic tests reviewed for today's visit: Significant findings were revd Assessment/Plan # Encephalopathy-- Unclear etiology,neuro following ? # SDH- non surgical ?-Keppra completed ?-H/o DVT on Eliquis. # h/o Non Hodgkins lymphoma DC planning SIGNATURE: Maricruz Manrique DO PATIENT NAME: Ifeoma Ashraf DATE: April 23, 2018 TIME: 4:10 PM PAGER/CONTACT #: THERAPY NT Observed: 04/23/2018 Status: COMPLETED Source: [facility] 11:58 AM [facility] OTHER CAMPUS REPOSITORY HNO ID: [id number] Author: Lori Frazier Service: Physical Therapy Author Type: Can Technician Type: Therapy (PT/OT/Speech/Resp) Filed: 04/23/2018 12:06 PM Note Text: Attestation signed by Miranda Gilliland at 04/23/2018 3:08 PM I reviewed and agree with the documentation corresponding to this therapy visit. SIGNATURE: Miranda Gilliland PT DATE: April 23, 2018 TIME: 3:08 PM Physical Therapy Treatment SERVICE DATE: 04/23/2018 SERVICE TIME: 1120 to 1150 ROOM: [place] [address] Recommended Discharge Disposition: Subacute/SNF Justification For Post Acute Needs: Good premorbid functional status;Medically complex;Willing to participate;Anticipate that patient will require daily (5x/wk) skilled therapy in a post-acute facility setting at the time of acute hospital discharge PT Recommendations to Nursing: Ambulate with device;Transfer to/from chair;OOB for Meals;With assist of 2 people Device: Wheeled Walker PT 6 Clicks Score: 13 Precautions/Activity Restrictions: Fall Risk;Bed/Chair Alarm Precaution/Activity Restriction Comments: IV, tele Isolation Type: None ASSESSMENT : Patient slowly progressing towards goals. Patient is more alert and demonstrating increased participation with therapy compared with last treatment session. Able to complete transfers and take several small steps with wheeled walker from bed to chair this morning using assist x 2 for safety due to decreased strength, balance, and cognition. Continue to recommend Patient Disposition at Start of Session: Supine in Bed;Call Sidhu in Reach;Bed Alarm;SCDs Patient Disposition at End of Session: OOB in Chair;Call Sidhu in Reach;Chair Alarm Tolerated Full Session with rest breaks, pacing due to dizziness Physical Therapy Problem List: Cognitive Deficit;Pain;Safety Deficits;Impaired Self Care;Decreased Activity Tolerance;Decreased Strength;Functional Mobility Impairment;Balance Impaired Patient /Caregiver Goals: Go Home Goals for Plan of Care: Transfer supine to/from sit with: Modified Independent Transfer sit to/from stand with: Modified Independent Ambulate with: Modified Independent Distance: 80 Device: Wheeled Walker;Cane (vs) Ambulate up and down steps with: Contact Guard Assistance Number of steps: 2 Device: Rail;Hand Held Assist Goal: Participate in 25 minutes continuous therapy activities Progress Toward Goals: Progressing slowly towards goals Rehab Potential: Good PLAN: Treatment Frequency (times per week): 5 (1-5) Current admission Treatment Interventions: Education;Strengthening;Functional Mobility Training;Balance Training;Neuromuscular Re-education Plan of Care developed with: Patient;Family TREATMENT INTERVENTIONS: Therapy Diagnosis: Unsteadiness on feet;Abnormalities of gait and mobility-other Interventions Provided: Therapeutic Exercise (32863);Therapeutic Activity (75194) Therapeutic Exercise (57682) Treatment Minutes: 14 1 unit Skilled Intervention(s): Instruction in therapeutic exercise: Patient completed general strengthening exercises in supine and chair (ankle pump, quad set, gluteal set, heel slide, hip abd/add, straight leg raise, long arc quad, hip adductor squeeze) x 10-12 reps bilateral lower extremity, with minimal assist and moderate cueing for facilitation of muscle control, optimal recruitment and alignment Therapeutic Activity (12810) Treatment Minutes: 12 1 unit Skilled Intervention(s): Instructed patient in supine to sit pushing with upper extremities to sit up Instruction in sit to and from stand technique with proper hand placement and body positioning at edge of bed x 2 repetitions provided moderate assist x 2 Instruction on motor sequencing taking several small turning steps from bed to chair using wheeled walker provided maximal cueing for safety and sequencing Education with importance of sitting up in chair for meals, to promote overall body functioning and healing Education on fall prevention and using call light for assist. (chair alarm in place and on) Total Timed Code Treatment Minutes: 26 Total Treatment Time (minutes): 26 SUBJECTIVE: Current Hospital Course: Chart reviewed and no significant medical updates relevant to therapy were noted Reason for Physical Therapy Consult : unsuccessful mobility by nursing Relevant Past Medical History: AICD, encephalopathy Patient Report: C/O feeling dizzy and sick. Expresses no pain. Home Environment Patient Lives With: Family (has been at SNF for ~2 weeks) Assistance Available: 24 Hour Entry To Home: Stairs;Without Rail (they have a non-wheeled walker placed against house to use ) Number Of Stairs Into Home: 2 Number Of Stairs To Bed/Bath: 0 Equipment Owned: Wheeled Walker;Standard Walker;Rollator;Shower Chair Prior Functional Level: Within Functional Limits (ambulated w/rollator infrequently) OBJECTIVE: Mini Cog Score: 0 (04/13/18 1400) CURRENT FUNCTIONAL STATUS: Current Functional Mobility Assist Level Additional Information Rolling Minimal Assistance Supine to Sit Minimal Assistance Sit to Supine Minimal Assistance Scooting Minimal Assistance Sit to Stand Moderate Assistance Stand to Sit Moderate Assistance Bed to Chair Moderate Assistance Bed To Chair Transfer Type: Stand Pivot Bed To Chair Transfer Equipment: Wheeled Walker Toilet/Commode Moderate Assistance Gait Moderate Assistance Gait Device: Wheeled Walker Gait Distance (feet): 5 turning steps into chair Stairs Curb Step Car Transfer General Gait Deviations: Evelia decreased;Step length decreased;Shuffling Gait;Difficulty changing direction/turning;Non-functional gait speed Balance: Dynamic Sitting;Dynamic Standing Dynamic Sitting Balance: Contact Guard Assistance Dynamic Standing Balance: Moderate Assistance Activity Tolerance: Sitting Activity Sitting Activity: Statically on edge of bed Sitting Activity Tolerance (in minutes): 8 Please see discipline specific clinical documentation flowsheet for complete details for this therapy evaluation/treatment. SIGNATURE: Lori Frazier PTA PATIENT NAME: Ifeoma Ashraf DATE: April 23, 2018 TIME: 11:58 AM HEMOGRAM Collected: 04/23/2018 Status: F Source: [facility] 4:30 AM HEALTH SYSTEM REPOSITORY TYPE CODE TESTS RESULT OUT OF REFERENCE UNITS RANGE LAB WBC(LOINC) 3.98-10.04 thou/cmm WBC 4.89 LAB RBC(LOINC) 3.93-5.22 mil/cmm Low RBC 3.72 LAB HGB(LOINC) 11.2-15.7 g/dL Hgb 12.1 LAB HCT(LOINC) 34.1-44.9 % Hct 38.5 LAB MCV(LOINC) 79.4-94.8 fl High MCV 103.5 LAB MCH(LOINC) 25.6-32.2 pg High MCH 32.5 LAB MCHC(LOINC) 31.6-34.8 % Low MCHC 31.4 LAB RDW(LOINC) 11.7-14.4 % High RDW 23.6 LAB RDWSD(LOINC 36.4-46.3 fl ) High RDW SD 90.9 LAB PLT(LOINC) 182-369 thou/cmm Platelet 217 LAB MPV(LOINC) 9.4-12.3 fl MPV 10.0 Performed By: #### CBC1 #### [facility] [address] [place] [address] BASIC PANEL Collected: 04/23/2018 Status: F Source: [facility] 4:30 AM HEALTH SYSTEM REPOSITORY TYPE CODE TESTS RESULT OUT OF REFERENCE UNITS RANGE LAB NA(LOINC) 136-145 mEq/L Sodium Blood 140 LAB K(LOINC) 3.5-5.1 mEq/L Potassium Blood 3.5 LAB CL(LOINC) 98-107 mEq/L Chloride Blood 102 LAB CO2(LOINC) 21-32 mEq/L CO2 Blood 29 LAB GLU(LOINC) 70-99 mg/dL Glucose High Blood 102 LAB BUN(LOINC) 7-18 mg/dL BUN Blood 8 LAB CREA(LOINC 0.51-0.95 mg/dL ) Creatinine Blood 0.62 LAB CA(LOINC) 8.5-10.1 mg/dL Calcium Blood 9.0 LAB ANGAP(LOIN 8-16 C) Anion Gap 13 Performed By: #### P8 #### [facility] [address] [place] [address] HGB A1C Collected: 04/23/2018 Status: F Source: [facility] 4:30 AM HEALTH SYSTEM REPOSITORY TYPE CODE TESTS RESULT OUT OF RANGE REFERENCE UNITS LAB A1C5(LOINC) 4.2-6.3 % Hgb A1c 5.2 Result Comment: Method is National Glycohemoglobin Standardization Program (NGSP) compliant. LAB ESAVG(LOINC) mg/dl Est. Avg Glucose 103 Performed By: #### HA1C #### [place] [address] CONSULT PROG Observed: 04/22/2018 Status: COMPLETED Source: [facility] 2:43 PM CLINIC OTHER CAMPUS REPOSITORY O ID: [id number] Author: Shamir Engle) Stephen Service: Neurology Author Type: Physician Matcher Operator Type: Consult Progress Note Filed: 04/22/2018 4:16 PM Note Text: NEUROLOGY CONSULT PROGRESS NOTE SERVICE DATE: 04/22/2018 SERVICE TIME: 315 Current Attending Provider: Janusz Garcia Subjective Interval History: Today, Ifeoma is not as lethargic but is still struggling with memory issues. I have explained the CSF results and the Lamictal level to her and she would like to contact her insurance company before making any changes because 'they will not pay for anything. Objective Physical Examination: Neurological: ? Mental Status: She is oriented to person and stuggles to 'get words out'. She does follow commands. Cranial Nerves: CNII: Visual acuity normal CNIII, IV, : Pupils equal, round and reactive to light CN V: Facial sensation intact bilaterally to fine touch CN VII: Facial muscles symmetric and strong CN VIII: Hears finger rub well bilaterally CN IX: Gag Reflex Not Examined CN X: Palate elevates symmetrically CN XI: Full strength shoulder shrug bilaterally ? CN XII: Tongue protrusion full and midline Motor Exam: ? Muscle Tone: Normal ? Strength today in the bilateral extremities is not changed ? Sensation: Intact to light touch. ? Gait: not tested due to fall risk New Labs: WBC (thou/cmm) Date Value 04/22/2018 6.00 04/21/2018 5.49 04/20/2018 7.42 RBC (mil/cmm) Date Value 04/22/2018 3.88 04/21/2018 3.44 04/20/2018 3.45 Platelet Count (thou/cmm) Date Value 04/22/2018 222 04/21/2018 200 04/20/2018 182 BUN (mg/dL) Date Value 04/22/2018 8 04/21/2018 6 04/20/2018 7 Creatinine (mg/dL) Date Value 04/22/2018 0.65 04/21/2018 0.50 04/20/2018 0.55 CBC, Coags, BMP, Mg, Phos Recent Labs 04/22/18 0815 04/21/18 0605 04/20/18 0510 04/20/18 0505 NA 135* 138 139 -- K 3.6 3.9 3.2* -- CHLOR 101 102 101 -- CO2 28 28 33* -- GLUC 122* 100* 93 -- CA 9.2 8.7 8.7 -- MG -- -- -- 1.7 DATA: Diagnostic tests reviewed for today's visit: Most recent labs and imaging results. Impression/Recommendations 1) Encephalopathy-- Unclear etiology, likely multifactorial; SDH, electrolyte imbalance -LP/CSF- unremarkable. protein 49 alone is not significant. -Lamictal level-20.7- explained to pt that I would recommend to decrease dose since normal range is 1-13 and then rechecking level, pt wants to contact insurance before making any changes due to the fact that they aren't going to pay for anything--she will notify us when she contact insurance. -Recommend TCD to check perfusion to brain and again does not want due to insurance issues. -ammonia WNL (29) -Unable to get MRI as device is MRI compatible however old device leads are not -UA neg 2)SDH- non surgical -Keppra completed -H/o DVT on Eliquis. 4.)h/o Non Hodgkins lymphoma SIGNATURE: SHAMIR WILKERSON PA-C PATIENT NAME: Ifeoma Ashraf DATE: April 22, 2018 TIME: 3:51 PM PAGER/CONTACT #: [phone] PROGRESS Observed: 04/22/2018 Status: COMPLETED Source: [facility] 10:11 AM CLINIC OTHER CAMPUS REPOSITORY HNO ID: [id number] Author: Janusz Garcia Service: Hospital Medicine Author Type: Physician Type: Progress Notes Filed: 04/22/2018 10:20 AM Note Text: INPATIENT PROGRESS NOTE CHIEF COMPLAINT: AMS INTERVAL HPI: Pt has no more diarrhea. No N/V. No fever/chills. Pt is very frustrated with her memory issues. She was talking about her therapy sessions today. Tearful. Spoke with MOm. Pt was seeing psychologist for depression related to all her medical problems since her stem cell transplant. Pt was on effexor and Remeron previously which are now on hold. Pt still has poor PO intake. Pt says she is trying to eat PHYSICAL EXAM: BP 114/71 Pulse 90 Temp (Src) 97.9 (Oral) Resp 18 Ht 5' 6 (1.68m) Wt 194 lb 0.1 oz (88.0kg) SpO2 99% LMP 06/06/2006 BMI 31.33 kg/(m2). GENERAL: Alert, cooperative, frustrated. Word finding fifficulty LUNGS: Lungs clear to auscultation, Good diaphragmatic excursion CARDIAC: Normal S1 and S2; no rubs, murmurs, or gallops ABDOMEN: Abdomen soft, mild lower quadrant tenderness BS normal, No masses or organomegaly EXTREMITIES:no edema NEURO STARK. Skin R foot cellulitis with small abscess that's decreasing in size DATA: Diagnostic tests reviewed for today's visit: CBC, Coags, BMP, Mg, Phos Recent Labs 04/22/18 0815 04/21/18 0605 04/20/18 0510 04/20/18 0505 WBC 6.00 5.49 7.42 -- HB 12.7 11.3 11.2 -- HCT 40.9 34.9 35.8 -- PLT 222 200 182 -- NA 135* 138 139 -- K 3.6 3.9 3.2* -- CHLOR 101 102 101 -- CO2 28 28 33* -- BUN 8 6* 7 -- CREAT 0.65 0.50* 0.55 -- GLUC 122* 100* 93 -- CA 9.2 8.7 8.7 -- MG -- -- -- 1.7 Assessment/Plan # encephalopathy. ?Unclear etio.slowly improving. Less letahrgic but still has significant memory problems.Cannot have an MRI 2/2 pacer neurology following.Had LP on 04/15. No signs of infection. CSF neg for herpes, enterovirus, syphillis and [place] virus # ?small R hemisphere hygroma or chronic SDH ??Surgery not recommended ? # depression-Pt very frustrated and tearful. D/w he rmother. Will start her back on her home effexor and remeron. Hopefully will help with her appetite too # history of Non Hodgkins lymphoma # ? DMII- BS have been stable. No DM meds at home. Check Hb A1c. DC BS checks as have been stable # history of Chronic Systolic CHF 2/2 chemotherapy?S/P ICD implantation? # h/o DVT- eliquis on hold. ? Restart # mild hyperammonemia resolved # N/V- likley gastroenteritis. resolved. SIGNATURE: Janusz Garcia MD PATIENT NAME: Ifeoma Ashraf DATE: April 22, 2018 TIME: 10:11 AM PAGER: HEMOGRAM Collected: 04/22/2018 Status: F Source: [facility] 8:15 AM HEALTH SYSTEM REPOSITORY TYPE CODE TESTS RESULT OUT OF REFERENCE UNITS RANGE LAB WBC(LOINC) 3.98-10.04 thou/cmm WBC 6.00 LAB RBC(LOINC) 3.93-5.22 mil/cmm Low RBC 3.88 LAB HGB(LOINC) 11.2-15.7 g/dL Hgb 12.7 LAB HCT(LOINC) 34.1-44.9 % Hct 40.9 LAB MCV(LOINC) 79.4-94.8 fl High MCV 105.4 LAB MCH(LOINC) 25.6-32.2 pg High MCH 32.7 LAB MCHC(LOINC) 31.6-34.8 % Low MCHC 31.1 LAB RDW(LOINC) 11.7-14.4 % High RDW 23.7 LAB RDWSD(LOINC 36.4-46.3 fl ) High RDW SD 91.9 LAB PLT(LOINC) 182-369 thou/cmm Platelet 222 LAB MPV(LOINC) 9.4-12.3 fl MPV 10.0 Performed By: #### CBC1 #### [place] [address] BASIC PANEL Collected: 04/22/2018 Status: F Source: [facility] 8:15 AM HEALTH SYSTEM REPOSITORY TYPE CODE TESTS RESULT OUT OF REFERENCE UNITS RANGE LAB NA(LOINC) 136-145 mEq/L Low Sodium Blood 135 LAB K(LOINC) 3.5-5.1 mEq/L Potassium Blood 3.6 LAB CL(LOINC) 98-107 mEq/L Chloride Blood 101 LAB CO2(LOINC) 21-32 mEq/L CO2 Blood 28 LAB GLU(LOINC) 70-99 mg/dL Glucose High Blood 122 LAB BUN(LOINC) 7-18 mg/dL BUN Blood 8 LAB CREA(LOINC 0.51-0.95 mg/dL ) Creatinine Blood 0.65 LAB CA(LOINC) 8.5-10.1 mg/dL Calcium Blood 9.2 LAB ANGAP(LOIN 8-16 C) Anion Gap 10 Performed By: #### P8 #### [place] [address] CASE MANAGEM Observed: 04/21/2018 Status: COMPLETED Source: [facility] 4:00 PM CLINIC OTHER CAMPUS REPOSITORY HNO ID: [id number] Author: Sowmya (Rn) NAHUM Brunner Service: Care Management Author Type: Registered Nurse Type: Care Mgt Progress Note Filed: 04/21/2018 4:13 PM Note Text: CARE MANAGEMENT PROGRESS NOTE SERVICE DATE: 04/21/2018 SERVICE TIME: 4:00 PM LOS: 14 days Called to [facility] and Ingrid was still in a patient meeting and unable to tell me about bed availablity. Finally received a call from Ingrid and they have no female beds available. Call to mother to notify. Will have [facility] apply for precert. Asked Ingrid at [facility] [phone] to please put patient on the waiting list. Ingrid put her on the list but the patient is the 5th on the list. Before her are 2 people from their assisted living and 2 from the community. Call patients mother Darlene [phone] and made her aware of all of this. PT/OT to be done on Tuesday for [place] [facility] to apply for precert Tuesday. SIGNATURE: Sowmya Brunner RN PATIENT NAME: Ifeoma Ashraf DATE: April 21, 2018 TIME: 4:00 PM PAGER/CONTACT #: [phone] THERAPY NT Observed: 04/21/2018 Status: COMPLETED Source: [facility] 3:57 PM CLINIC OTHER CAMPUS REPOSITORY HNO ID: [id number] Author: Mushtaq (Pt) Lois Service: Physical Therapy Author Type: Physical Therapist Type: Therapy (PT/OT/Speech/Resp) Filed: 04/21/2018 4:11 PM Note Text: Physical Therapy Treatment SERVICE DATE: 04/21/2018 SERVICE TIME: 1504 to 1551 ROOM: [place] [address] Recommended Discharge Disposition: Subacute/SNF Justification For Post Acute Needs: Good premorbid functional status;Medically complex;Willing to participate;Anticipate that patient will require daily (5x/wk) skilled therapy in a post-acute facility setting at the time of acute hospital discharge Anticipated Discharge Needs: Physical Assist at Home Physical Assist at Home for: Transfers;Ambulation;Stairs;Safety;Self Care Recommended Discharge Equipment: No equipment needs anticipated PT Recommendations to Nursing: Ambulate with device;To bathroom;Transfer to/from chair;OOB for Meals;Utilize bed in chair position;With assist of 1 person Device: Wheeled Walker PT 6 Clicks Score: 11 Precautions/Activity Restrictions: Fall Risk;Bed/Chair Alarm Precaution/Activity Restriction Comments: IV, tele Isolation Type: None ASSESSMENT : Progressing towards PT goals with increased activity tolerance. Patient much more alert today, able to communicate but does have expressive deficits. Patient Disposition at Start of Session: Supine in Bed;Call Sidhu in Reach;Family Present Patient Disposition at End of Session: Supine in Bed;Call Sidhu in Reach;Family Present Tolerated Full Session (with rest breaks, pacing) Physical Therapy Problem List: Cognitive Deficit;Pain;Safety Deficits;Impaired Self Care;Decreased Activity Tolerance;Decreased Strength;Functional Mobility Impairment;Balance Impaired Patient /Caregiver Goals: Go Home Goals for Plan of Care: Transfer supine to/from sit with: Modified Independent Transfer sit to/from stand with: Modified Independent Ambulate with: Modified Independent Distance: 80 Device: Wheeled Walker;Cane (vs) Ambulate up and down steps with: Contact Guard Assistance Number of steps: 2 Device: Rail;Hand Held Assist Goal: Participate in 25 minutes continuous therapy activities Progress Toward Goals: Progressing as expected Due To: ( ) Rehab Potential: Good PLAN: Treatment Frequency (times per week): 5 (1-5) Current admission Treatment Interventions: Education;Strengthening;Functional Mobility Training;Balance Training;Neuromuscular Re-education Plan of Care developed with: Patient;Family TREATMENT INTERVENTIONS: Therapy Diagnosis: Unsteadiness on feet;Abnormalities of gait and mobility-other Interventions Provided: Therapeutic Exercise (70072);Therapeutic Activity (37346) Therapeutic Exercise (22394) Treatment Minutes: 30 2 units Skilled Intervention(s): Instruction in therapeutic exercise for lower extremities and trunk strengthening. Facilitation of muscle control, optimal recruitment and alignment with verbal and tactile cueing. Patient completed general strengthening exercises in supine, at edge of bed or chair (ankle pump, quad set, gluteal set, heel slide, hip abd/add, straight leg raise, long arc quad, short arc quad, hip adductor squeeze) x 12 reps bilateral lower extremity, without physical assist, Short-touch tactile cueing for activation. Sat edge of bed for trunk strengthening, verbal cues to lessen and remove assist from upper extremities assistance, moderate tactile cueing for postural muscle activation. Requiring extra time due to debility, shakiness, cueing for attention to task at had, dizziness upon sitting. Bilateral lower extremities, L > R, with bouts of tremors at rest and with activity. Therapeutic Activity (26321) Treatment Minutes: 12 1 unit Skilled Intervention(s): Instructed patient in supine to sit pushing with upper extremities to sit up. Instructed patient in sit to supine using safe, effective technique. Education to patient and mother for physiological benefits of upright sitting, disease(s) process, presentation today vs yesterday, implications of bed rest/debility. Dual task with exercises while naming parts of leg and arm; patient needing maximal cueing for body part recognition. Sat edge of bed for physiological benefits of upright sitting, balance to midline. Total Timed Code Treatment Minutes: 42 Total Treatment Time (minutes): 42 SUBJECTIVE: Current Hospital Course: Chart reviewed and no significant medical updates relevant to therapy were noted Reason for Physical Therapy Consult : unsuccessful mobility by nursing Relevant Past Medical History: AICD, encephalopathy Patient Report: Identification verified x2, patient agreeable to therapy. Patient remembers yesterday's PT session, apologizes for difficulty with drowsiness, speaking, participating [empathetic response to patient by PT]. Home Environment Patient Lives With: Family (has been at SNF for ~2 weeks) Assistance Available: 24 Hour Entry To Home: Stairs;Without Rail (they have a non-wheeled walker placed against house to use ) Number Of Stairs Into Home: 2 Number Of Stairs To Bed/Bath: 0 Equipment Owned: Wheeled Walker;Standard Walker;Rollator;Shower Chair Prior Functional Level: Within Functional Limits (ambulated w/rollator infrequently) OBJECTIVE: CURRENT FUNCTIONAL STATUS: Current Functional Mobility Assist Level Additional Information Rolling Minimal Assistance Supine to Sit Moderate Assistance Sit to Supine Minimal Assistance Scooting Maximal Assistance Sit to Stand (unable/unsafe) Stand to Sit Bed to Chair Toilet/Commode Gait Stairs Curb Step Car Transfer Balance: Dynamic Sitting;Dynamic Standing Dynamic Sitting Balance: Minimal Assistance Activity Tolerance: Sitting Activity Sitting Activity: static Sitting Activity Tolerance (in minutes): 5 Please see discipline specific clinical documentation flowsheet for complete details for this therapy evaluation/treatment. SIGNATURE: Mushtaq Abreu PT PATIENT NAME: Ifeoma Ashraf DATE: April 21, 2018 TIME: 3:57 PM CASE MANAGEM Observed: 04/21/2018 Status: COMPLETED Source: [facility] 12:25 PM CLINIC OTHER CAMPUS REPOSITORY HNO ID: [id number] Author: Sowmya (Rn) NAHUM Brunner Service: Care Management Author Type: Registered Nurse Type: Care Mgt Progress Note Filed: 04/21/2018 12:26 PM Note Text: CARE MANAGEMENT PROGRESS NOTE SERVICE DATE: 04/21/2018 SERVICE TIME: 12:25 PM LOS: 14 days [facility] called and they have no beds. Call again Placed to [facility] admissions - was in with a resident. Message left again. SIGNATURE: Sowmya Brunner RN PATIENT NAME: Ifeoma Ashraf DATE: April 21, 2018 TIME: 12:25 PM PAGER/CONTACT #: [phone] PROGRESS Observed: 04/21/2018 Status: COMPLETED Source: [place] 10:45 AM CLINIC OTHER CAMPUS REPOSITORY HNO ID: [id number] Author: Janusz Garcia Service: Hospital Medicine Author Type: Physician Type: Progress Notes Filed: 04/21/2018 10:49 AM Note Text: INPATIENT PROGRESS NOTE CHIEF COMPLAINT: AMS INTERVAL HPI: Pt c/o nausea. Had diarrhea yest seems to have improved now. Had nausea this am with one episode of emesis. c/o lower quadrant abd discomfort. No fever/chills PHYSICAL EXAM: BP 114/75 Pulse 78 Temp (Src) 97.9 (Oral) Resp 16 Ht 5' 6 (1.68m) Wt 194 lb 0.1 oz (88.0kg) SpO2 100% LMP 06/06/2006 BMI 31.33 kg/(m2). GENERAL: Alert, no distress, cooperative, difficulty with answering orientation questions. LUNGS: Lungs clear to auscultation, Good diaphragmatic excursion CARDIAC: Normal S1 and S2; no rubs, murmurs, or gallops ABDOMEN: Abdomen soft, beatriz lower quadrant tendenrness BS normal, No masses or organomegaly EXTREMITIES: No edema DATA: Diagnostic tests reviewed for today's visit: CBC, Coags, BMP, Mg, Phos Recent Labs 04/21/18 0605 04/20/18 0510 04/20/18 0505 04/19/18 0650 WBC 5.49 7.42 -- 9.87 HB 11.3 11.2 -- 10.9* HCT 34.9 35.8 -- 34.0* PLT 200 182 -- 187 NA 138 139 -- 141 K 3.9 3.2* -- 3.2* CHLOR 102 101 -- 101 CO2 28 33* -- 33* BUN 6* 7 -- 5* CREAT 0.50* 0.55 -- 0.58 GLUC 100* 93 -- 99 CA 8.7 8.7 -- 8.8 MG -- -- 1.7 -- Assessment/Plan # encephalopathy. ?Unclear etio.stable. Cannot have an MRI 2/2 pacer neurology following.Had LP on 04/15. No signs of infection. CSF neg for herpes, enterovirus, syphillis and west nile virus # ?small R hemisphere hygroma or chronic SDH ??Surgery not recommended # hypokalemia- replace ? # hypomagnesemia-resolved # history of Non Hodgkins lymphoma # DMII- fair # history of Chronic Systolic CHF 2/2 chemotherapy induced LV dysfunction, and is ?SP ICD implantation?for primary prevention of sudden # h/o DVT- eliquis on hold. ? Restart # mild hyperammonemia resolved # N/V- likley gastroenteritis. moniotr. zofran prn. CT abd if not improving. r/o cdiff if diarrhea recurrs. ? Plan SNF at [place]. Await acceptance at facility of choice. SIGNATURE: Janusz Garcia MD PATIENT NAME: Ifeoma Ashraf DATE: April 21, 2018 TIME: 10:45 AM PAGER: CASE MANAGEM Observed: 04/21/2018 Status: COMPLETED Source: [place] 10:22 AM CLINIC OTHER CAMPUS REPOSITORY HNO ID: [id number] Author: Sowmya (Rn) NAHUM Brunner Service: Care Management Author Type: Registered Nurse Type: Care Mgt Progress Note Filed: 04/21/2018 10:28 AM Note Text: CARE MANAGEMENT PROGRESS NOTE SERVICE DATE: 04/21/2018 SERVICE TIME: 10:22 AM LOS: 14 days Chart reviewed. Call placed to [facility] [phone] and left message for Ingrid in admissions to please call me back. Call also placed to [facility] [phone] left message to please call back. [facility] accept pt but Mother does not want her to go there unless the two facilities mentioned above deny the patient. Will continue to follow. For discharge planning. Patient WILL require precert once we have an accepting facility. SIGNATURE: Sowmya Brunner RN PATIENT NAME: Ifeoma Ashraf DATE: April 21, 2018 TIME: 10:22 AM PAGER/CONTACT #: [phone] HEMOGRAM Collected: 04/21/2018 Status: F Source: [facility] 6:05 AM HEALTH SYSTEM REPOSITORY TYPE CODE TESTS RESULT OUT OF REFERENCE UNITS RANGE LAB WBC(LOINC) 3.98-10.04 thou/cmm WBC 5.49 LAB RBC(LOINC) 3.93-5.22 mil/cmm Low RBC 3.44 LAB HGB(LOINC) 11.2-15.7 g/dL Hgb 11.3 LAB HCT(LOINC) 34.1-44.9 % Hct 34.9 LAB MCV(LOINC) 79.4-94.8 fl High MCV 101.5 LAB MCH(LOINC) 25.6-32.2 pg High MCH 32.8 LAB MCHC(LOINC) 31.6-34.8 % MCHC 32.4 LAB RDW(LOINC) 11.7-14.4 % High RDW 23.9 LAB RDWSD(LOINC 36.4-46.3 fl ) High RDW SD 89.3 LAB PLT(LOINC) 182-369 thou/cmm Platelet 200 LAB MPV(LOINC) 9.4-12.3 fl MPV 10.4 Performed By: #### CBC1 #### [place] [address] BASIC PANEL Collected: 04/21/2018 Status: F Source: [facility] 6:05 AM HEALTH SYSTEM REPOSITORY TYPE CODE TESTS RESULT OUT OF REFERENCE UNITS RANGE LAB NA(LOINC) 136-145 mEq/L Sodium Blood 138 LAB K(LOINC) 3.5-5.1 mEq/L Potassium Blood 3.9 Result Comment: SPECIMEN SLIGHTLY HEMOLYZED LAB CL(LOINC) 98-107 mEq/L Chloride Blood 102 LAB CO2(LOINC) 21-32 mEq/L CO2 Blood 28 LAB GLU(LOINC) 70-99 mg/dL Glucose High Blood 100 LAB BUN(LOINC) 7-18 mg/dL BUN Blood Low 6 LAB CREA(LOINC) 0.51-0.95 mg/dL Creatinine Low Blood 0.50 LAB CA(LOINC) 8.5-10.1 mg/dL Calcium Blood 8.7 LAB ANGAP(LOINC) 8-16 Anion Gap 12 Performed By: #### P8 #### [place] [address] ALLIED HEALTH Observed: 04/20/2018 Status: COMPLETED Source: [place] 12:37 PM CLINIC OTHER CAMPUS REPOSITORY HNO ID: [id number] Author: Wen (Rn) Saus, RN Service: Nursing Author Type: Registered Nurse Type: Allied Health Filed: 04/20/2018 12:42 PM Note Text: HALO NURSE PROGRESS NOTE SERVICE DATE: 04/20/2018 SERVICE TIME: 12:37 PM REFERRED BY: F/U VISIT WITH: Patient REASON FOR VISIT: Coping issues, Grief and loss, Length of stay, Lonliness and Serious illness/trauma CONDITION: Neuromuscular INTERVENTIONS: Education, Emotional support, Prayer with patient, Prayer, silent and Therapeutic listening TIME SPENT (minutes): 15 Patient open for visit, lonely, able to communicate when asked questions. She wants to go home.Prayers said at bedside, name placed on prayer list. Would like another visit. SIGNATURE: Wen Castillo RN PATIENT NAME: Ifeoma Ashraf DATE: April 20, 2018 TIME: 12:37 PM PROGRESS Observed: 04/20/2018 Status: COMPLETED Source: [place] 10:57 AM CLINIC OTHER CAMPUS REPOSITORY HNO ID: [id number] Author: Janusz Garcia Service: Hospital Medicine Author Type: Physician Type: Progress Notes Filed: 04/20/2018 1:57 PM Note Text: INPATIENT PROGRESS NOTE CHIEF COMPLAINT: AMS INTERVAL HPI: no new complaints. Pt sleeping, wakes up but confused. No change in MS PHYSICAL EXAM: BP 114/70 Pulse 101 Temp (Src) 97.5 (Oral) Resp 16 Ht 5' 6 (1.68m) Wt 194 lb 0.1 oz (88.0kg) SpO2 99% LMP 06/06/2006 BMI 31.33 kg/(m2). GENERAL: no distress LUNGS: Lungs clear to auscultation, Good diaphragmatic excursion CARDIAC: Normal S1 and S2; no rubs, murmurs, or gallops ABDOMEN: Abdomen soft, non-tender, BS normal, No masses or organomegaly EXTREMITIES: No edema STARK DATA: Diagnostic tests reviewed for today's visit: CBC, Coags, BMP, Mg, Phos Recent Labs 04/20/18 0510 04/20/18 0505 04/19/18 0650 WBC 7.42 -- 9.87 HB 11.2 -- 10.9* HCT 35.8 -- 34.0* PLT 182 -- 187 NA 139 -- 141 K 3.2* -- 3.2* CHLOR 101 -- 101 CO2 33* -- 33* BUN 7 -- 5* CREAT 0.55 -- 0.58 GLUC 93 -- 99 CA 8.7 -- 8.8 MG -- 1.7 -- Assessment/Plan # encephalopathy. Unclear etio. Seems stable. Cannot have an MRI 2/2 pacer neurology following.Had LP on 04/15. No signs of infection. CSF neg for herpes, enterovirus, syphillis and west nile virus # small R hemisphere hygroma or chronic SDH Surgery not recommended # hypokalemia- replace ? # hypomagnesemia-resolved # history of Non Hodgkins lymphoma # DMII- fair # history of Chronic Systolic CHF 2/2 chemotherapy induced LV dysfunction, and is ?SP ICD implantation?for primary prevention of sudden # h/o DVT- eliquis on hold. ? Restart # mild hyperammonemia resolved Plan for SNF at [place]. precert needed ? SIGNATURE: Janusz Garcia MD PATIENT NAME: Ifeoma Ashraf DATE: April 20, 2018 TIME: 10:57 AM PAGER: D/w mom at bedside. Pt now awake alert. Speech clear but still has memory problems. Getting frustrated as she cannot remember things. Noted by RD that pt eating <20% of meals. D/w pt. She is motivated to try. Denies any dysphagia. Says food doesn't taste good. Encouraged to order what she wants. Pt has a swelling L foot with surrounding erythema. , looks better per mom. Mild tenderness on palpation. No discharge. No warmth Monitor off of ABX. THERAPY NT Observed: 04/20/2018 Status: COMPLETED Source: [facility] 10:15 AM CLINIC OTHER CAMPUS REPOSITORY HNO ID: [id number] Author: Mushtaq (Pt) Lois Service: Physical Therapy Author Type: Physical Therapist Type: Therapy (PT/OT/Speech/Resp) Filed: 04/20/2018 10:28 AM Note Text: Physical Therapy Treatment SERVICE DATE: 04/20/2018 SERVICE TIME: 937 to 1005 ROOM: [place] [address] Recommended Discharge Disposition: Subacute/SNF Justification For Post Acute Needs: Good premorbid functional status;Medically complex;Willing to participate;Anticipate that patient will require daily (5x/wk) skilled therapy in a post-acute facility setting at the time of acute hospital discharge Anticipated Discharge Needs: Physical Assist at Home Physical Assist at Home for: Transfers;Ambulation;Stairs;Safety;Self Care Recommended Discharge Equipment: No equipment needs anticipated PT Recommendations to Nursing: Ambulate with device;To bathroom;Transfer to/from chair;OOB for Meals;Utilize bed in chair position;With assist of 1 person Device: Wheeled Walker PT 6 Clicks Score: 8 Precautions/Activity Restrictions: Fall Risk;Bed/Chair Alarm Precaution/Activity Restriction Comments: IV, tele Isolation Type: None ASSESSMENT : Progressing towards PT goals with increased independence with bed mobility, but overall progress slower than expected. Patient significantly below premorbid level of function, continue to recommend discharge to inpatient facility with frequent skilled physical therapy interventions. Patient inconsistant following commands and difficulty answering questions, demonstrates decreased awareness of left/right, and possible right neglect. Patient Disposition at Start of Session: Supine in Bed;Call Sidhu in Reach Patient Disposition at End of Session: Supine in Bed;Call Sidhu in Reach Tolerated Full Session Alertness Physical Therapy Problem List: Cognitive Deficit;Pain;Safety Deficits;Impaired Self Care;Decreased Activity Tolerance;Decreased Strength;Functional Mobility Impairment;Balance Impaired Patient /Caregiver Goals: Go Home Goals for Plan of Care: Transfer supine to/from sit with: Modified Independent Transfer sit to/from stand with: Modified Independent Ambulate with: Modified Independent Distance: 80 Device: Wheeled Walker;Cane (vs) Ambulate up and down steps with: Contact Guard Assistance Number of steps: 2 Device: Rail;Hand Held Assist Goal: Participate in 25 minutes continuous therapy activities Progress Toward Goals: Progressing slower than expected Due To: acuity of illness; Rehab Potential: Good PLAN: Treatment Frequency (times per week): 5 (1-5) Current admission Treatment Interventions: Education;Strengthening;Functional Mobility Training;Balance Training;Neuromuscular Re-education Plan of Care developed with: Patient;Family TREATMENT INTERVENTIONS: Therapy Diagnosis: Unsteadiness on feet;Abnormalities of gait and mobility-other Interventions Provided: Therapeutic Exercise (27808) Therapeutic Exercise (69224) Treatment Minutes: 25 2 units Skilled Intervention(s): Instruction in therapeutic exercise for lower extremities strengthening and fluid dynamics. Facilitation of muscle control, optimal recruitment and alignment with mod-max verbal cueing and mod-max tactile cueing to right lower extremity. Supine/seated exercises x12 bilaterally, cueing as above, ankle pumps, long arc quad sets, hip abd/add, straight leg raises. Not able to follow commands for hip adduction squeezes today. Practice with bed mobility and functional strengthening of upper extremities, trunk, and lower extremities. Sat edge of bed 7 minutes for physiological benefits of upright sitting and for trunk strengthening, verbal and tactile cues to hold arms up to facilitate increased postural muscle activation. Extra time required secondary to decreased alertness, elevated cueing necessary to perform task at hand. Did not attempt standing due to safety concerns: decreased alertness with difficulty keeping eyes open, decreased strength in bilateral lower extremities, unable to sit edge of bed without support > 1 minute. Total Timed Code Treatment Minutes: 25 Total Treatment Time (minutes): 25 SUBJECTIVE: Current Hospital Course: Chart reviewed and no significant medical updates relevant to therapy were noted Reason for Physical Therapy Consult : unsuccessful mobility by nursing Relevant Past Medical History: AICD, encephalopathy Patient Report: Identification verified x2, patient agreeable to therapy with head nod; mostly non-verbal but does speak one sentence during PT session. Home Environment Patient Lives With: Family (has been at SNF for ~2 weeks) Assistance Available: 24 Hour Entry To Home: Stairs;Without Rail (they have a non-wheeled walker placed against house to use ) Number Of Stairs Into Home: 2 Number Of Stairs To Bed/Bath: 0 Equipment Owned: Wheeled Walker;Standard Walker;Rollator;Shower Chair Prior Functional Level: Within Functional Limits (ambulated w/rollator infrequently) OBJECTIVE: Range Of Motion: Within Functional Limits Except ROM Limitation Comments: Decreased dorsiflexion bilaterally Strength: Within Functional Limits Except Strength Limitation Comments: knee extension: L LE 3+/5; R LE 2+/5; hip flextion: 4-/5 bilaterally CURRENT FUNCTIONAL STATUS: Current Functional Mobility Assist Level Additional Information Rolling Moderate Assistance Supine to Sit Maximal Assistance Sit to Supine Maximal Assistance Scooting Sit to Stand (unable/unsafe) Stand to Sit Bed to Chair Toilet/Commode Gait Stairs Curb Step Car Transfer Balance: Dynamic Sitting;Dynamic Standing Dynamic Sitting Balance: Moderate Assistance Sitting tolerance without assist: 1 minute Please see discipline specific clinical documentation flowsheet for complete details for this therapy evaluation/treatment. SIGNATURE: Mushtaq Abreu PT PATIENT NAME: Ifeoma Ashraf DATE: April 20, 2018 TIME: 10:15 AM CASE MANAGEM Observed: 04/20/2018 Status: COMPLETED Source: [facility] 10:03 AM CLINIC OTHER CAMPUS REPOSITORY HNO ID: [id number] Author: Ernestina Sharpe) NAHUM Hernandez Service: Care Management Author Type: Registered Nurse Type: Care Mgt Progress Note Filed: 04/20/2018 10:13 AM Note Text: CARE MANAGEMENT PROGRESS NOTE SERVICE DATE: 04/20/2018 SERVICE TIME: 10:03 AM LOS: 13 days Chart reivewed. Notified via [employer] that [facility] is out of network for this patient's insurance plan and she would have a 50% daily co-pay. TC to patient's mother Darlene [phone] to discuss DC plan. She states her first choice for DC is still [facility]. TC/VM left for [place] [phone], await CB. Darlene's second choice is [facility]. TC/VM left for [facility] [phone], await CB. Darlene reports she would be agreeable to [facility] only if first 2 choices can not accept. Spoke with Madelyn from [facility] [phone], she states her facility is in network for the patient's insurance. Await CB from family's first SNF choice. Patient will need precert prior to DC. PT to re-eval patient this AM. Cont to follow SIGNATURE: Ernestina Hernandez RN PATIENT NAME: Ifeoma Ashraf DATE: April 20, 2018 TIME: 10:03 AM PAGER/CONTACT #: [phone] NUTRITION Observed: 04/20/2018 Status: COMPLETED Source: [place] 9:47 AM [facility] OTHER [place] REPOSITORY HNO ID: [id number] Author: Domi Arita Service: Nutrition Therapy Author Type: Registered Dietitian Type: Nutrition Filed: 04/20/2018 11:45 AM Note Text: NUTRITION THERAPY PROGRESS NOTE SERVICE DATE: 04/20/2018 SERVICE TIME: 11:10 RECOMMENDED DIAGNOSIS: MILD PROTEIN-CALORIE MALNUTRITION per Registered Dietitian on 04/13/18 In the context of Acute Illness or Injury based on: Insufficient Energy Intake: less than or equal to 50% for greater than or equal to 5 days NUTRITION CARE PLAN Problem, Etiology and Signs/Symptoms: Suboptimal oral intake related to altered mental status/confusion?as evidenced by nursing documentation of PO intake 0-50% since admission. Intervention: 1. Recommend tube feed due to pt with very poor PO intake for past 2 weeks. Recommend Osmolite 1.2 at 60 cc/hr for 22 hrs. Provides total 1320 cc product, 1584 calories, 73 grams protein, 1082 cc free H2O. Flush at 150 cc q 4 hrs with no IVFs. TF needs to be held for 2 hrs due to synthroid. Hold at 05:00 and start at 07:00 If agree with recommendations, start TF at 20 cc/hr and adv as tolerated. Will need to monitor for refeeding syndrome. Recommend ordering phos and mg to monitor. Collaborated with RN Collaborated with Dr. Garcia in regards to nutrition recommendations Monitor and Evaluation: Goal: Meet >75% of estimated needs Monitor fluid/electrolyte balance Monitor labs, I/Os, vital signs, weight Discharge Nutrition Recommendations: Diet: regular- liberal due to pt with poor po intake Supplements: oral supplements of pt's choice Nutrition Follow-up: For PO intake, diet tolerance, supplement intake Per HPI: This is a 53 year old female with history of Non-Hodgkin's lymphoma s/p stem cell transplant, HFrEF (15%), Type 2 Diabetes Mellitus, ALEJANDRO, DVT of Left Axillary and Brachial Veins admitted directly from outside Emergency Department for her altered mental status. ?Per outside records: She was recently admitted to the hospital and was found to have congestive heart failure with an ejection fraction of 15%. She was discharged to a nursing facility. At the nursing facility, she became combative. She had a CT performed yesterday that showed possible hygroma versus subacute resolving subdural hematoma. At the Emergency Department she was hypotensive 97/72, pulse 108, alert and oriented only to self, Cr 1.3, anion gap 12, INR was 2.3, UA showed evidence of 50-100 white cells with 4+ bacteria nitrates. Troponin was indeterminate at 0.046, lactic acid was 6.7. She received Haldol, Ceftriaxone and was started on 250cc of maintenance fluids. ? Per neurosurgery, appears to be a small R hemisphere hygroma or chronic SDH. Neurosurgery not recommending surgery. Pt transferred to 5400 on 04/08. pt with acute encephalopathy - etiology unclear. UA negative. Unable to get MRI as device is MRI compatible however old device leads are not. Interval History: Discharge planning. Pt still with confusion. + BM 04/19 Active Hospital Problems Diagnosis Date Noted - Malnutrition of mild degree (HCC) 04/13/2018 - Chronic combined systolic and diastolic CHF (congestive heart failure) ([facility]) 04/11/2018 Overview Note: LVEF 25-30%, Stg 3-4 diastolic dysfunction, echo 04/12 - Altered mental state 04/07/2018 - Lactic acidosis 04/07/2018 - SDH (subdural hematoma) ([facility]) 04/07/2018 - Coagulopathy ([facility]) 04/07/2018 - Encephalopathy 04/07/2018 - Obesity, Class II, BMI 35-39.9 04/07/2018 - LV dysfunction 05/20/2010 - Obesity 05/20/2010 - Implantable cardioverter-defibrillator (ICD) in situ 10/13/2009 Overview Note: ICD-Device Mfg [employer] Model 1211-36Q Serial Number [id number] Implant Date 10/10/2009 Implanted By AZEEM Hong _ [employer] Model 7121Q Serial Number [id number] Implant Date 10/10/2009 PAST MEDICAL HISTORY Diagnosis Date - Allergic rhinitis, cause unspecified - CHF (congestive heart failure) (HCC) - Diabetes (HCC) type II, oral and injectable insulin - Essential hypertension, benign - Fibromyalgia - Hypothyroid - Non Hodgkin's lymphoma (HCC) - Obesity, unspecified - PMH - PAST MEDICAL HISTORY OF non hodgkins lymphoma, berkitts - Rheumatoid arthritis (HCC) - Sciatica PAST SURGICAL HISTORY Procedure Laterality Date - CATARACT EXTRACTION HX 09/2016 - DANDC, DIAG AND/OR THERAPEUTIC Dilation AND curettage - DEFIBRILLATOR SURGERY 10-10-2009 [facility] - EXTRACTION ERUPTED TOOTH/EXR wisdom teeth - LAMINECTOMY,THORACIC 2006 - LAP CHOLECYSTECT/CHOLANGIOGRAPHY 04-01-15 - PAST SURGICAL HISTORY OF Left 2003 heel spurs - PAST SURGICAL HISTORY OF 09/24/2013 heart catherization - THYROID FINE NEEDLE ASPIRATION 12/2015 Present Diet Order: Regular with Boost Glucose Control TID, magic cup QD Nutritional Intake: <50% estimated energy need over the past 2 week(s). Pt with very poor po intake for the past 2 weeks. Pt not eating well for the past 2 weeks; <50% of meals. Over the past 4 days pt eating less than 25% of most meals. Per RN, pt is not taking supplements or eating meals well. Suspect poor po related to altered mental status/confusion. Admission Weight: 101.2 kg (223 lb 1.7 oz) Current Weight: 88 kg (194 lb 0.1 oz) Body mass index is 31.31 kg/m?. class 1 obesity Weight has decreased by 8.6 kg representing 8.9% wt loss in 1 week. Suspect wt change related to fluid changes and poor PO intake. Pt with very poor po intake for past 2 weeks. Bed weight during visit 87 kg 04/20/2018 88 kg - +1 generalized edema 04/18/2018 84 kg 04/16/2018 94.3 kg +1 R lower extremity edema, +2 left lower extremity edema 04/15/2018 95.5 kg 04/14/2018 94.8 kg 04/13/2018 ?96.6 kg- +1 generalized edema 04/12/2018 ?98.6 kg 04/11/2018 ?102.2 kg ?04/10/2018 ???105.8 kg ??04/09/2018 ??102.5 kg ??04/08/2018 ??106.3 kg - bed weight ??04/07/2018 ??101.2 kg - bed weight - noting +1 generalized edema, +2 bilateral upper extremity edema, +3 lower extremity edema ???03/08/2017 ??98.4 kg (217 lb) ???11/10/2016 ??99.8 kg (220 lb) ???01/01/2016 ??106.1 kg (234 lb) ???09/02/2015 ??108.6 kg (239 lb 6.4 oz) ???04/11/2015 ??109.8 kg (242 lb) ???03/15/2015 ??113.9 kg (251 lb) ???05/08/2014 ??116.1 kg (256 lb) ???01/21/2014 ??101.3 kg (223 lb 6.4 oz) ???12/26/2013 ??101.2 kg (223 lb) ???08/31/2013 ??105.2 kg (232 lb) ???06/08/2013 ??108.4 kg (239 lb) ???05/04/2013 ??113.9 kg (251 lb) ???03/28/2013 ??128.8 kg (284 lb) ???06/12/2012 ??120.2 kg (265 lb) ???05/16/2012 ??121.7 kg (268 lb 4.8 oz) ???04/25/2012 ??118 kg (260 lb 3.2 oz) ???07/14/2011 ??129.7 kg (286 lb) ???03/03/2011 ??131.1 kg (289 lb) ???07/27/2010 ??135.2 kg (298 lb) [place] Body Weight: 59.1kg Resting Metabolic Rate: 1605 Estimated kilocalorie needs: 1095-0686 kilocalories determined by 25-30 kcal/kg Estimated protein needs: 59-71 grams determined by 1.0-1.2 g/kg [place] weight Estimated fluid needs: 2000 milliliters based on guidelines for patient's with CHF dx ALLERGIES Allergen Reactions - Aleve [Naproxen Sod* Swelling - Amitriptyline Other: See Comments - Latex Rash - Sulfa (Sulfonamide * Rash - Tape [Adhesive Tape* Other: See Comments Adhesives on tape Current Facility-Administered Medications: potassium chloride 40 mEq oral powder (KLOR-CON) 40 mEq ORAL DAILY magnesium oxide 400 mg tab(s) (MAG-OX) 400 mg ORAL BID QUEtiapine 50 mg tablet (SEROquel) 50 mg ORAL AT BEDTIME melatonin 9 mg tab(s) 9 mg ORAL AT BEDTIME pill lens generator (patient-specific) 1 Each Miscell. (Med.Supl.;Non- Drugs) PRN simethicone, chewable 80 mg tab(s) (MYLICON) 80 mg ORAL QID PRN bisacodyl 10 mg suppository (DULCOLAX) 10 mg RECTAL DAILY PRN acetaminophen 325-650 mg tab(s) (TYLENOL) 325-650 mg ORAL q 6 H PRN atorvastatin 10 mg tab(s) (LIPITOR) 10 mg ORAL AT BEDTIME folic acid 1 mg tab(s) 1 mg ORAL BID levothyroxine 75 mcg tab(s) (SYNTHROID) 75 mcg ORAL BEFORE BREAKFAST DAILY dextrose 40 % 15 g 15 g ORAL PRN Or glucagon 1 mg injection (GLUCAGEN) 1 mg INTRAMUSCULAR PRN Or dextrose 50% in water 25 mL syringe 12.5 g INTRAVENOUS PRN carvedilol 3.125 mg tab(s) (COREG) 3.125 mg ORAL BID w MEALS digoxin 0.125 mg tab(s) (LANOXIN) 0.125 mg ORAL DAILY lamoTRIgine 200 mg tab(s) (LaMICtal) 200 mg ORAL AT BEDTIME Intake/Output 04/16/18 07 - 04/17/18 0659 04/17/18 07 - 04/18/18 0659 04/18/18 07 - 04/19/18 0659 04/19/18 07 - 04/20/18 0659 04/20/18 07 - 04/21/18 0659 Intake (ml) 560 0 170 810 0 Output (ml) -- -- -- -- -- Net (ml) 560 0 170 810 0 Pressure Injury 04/09/18 1045 Coccyx (Active) Stage Injury 1 04/18/2018 7:50 PM Litigation Specialist Related Pressure Injury No 04/18/2018 7:50 PM Dressing Status Intact 04/17/2018 7:30 PM Frequency of Dressing Change Every 3 Days 04/17/2018 7:30 PM Dressing Change Due 04/18/18 04/17/2018 7:30 PM Dressing/Treatment Type Foam-Adhesive 04/17/2018 7:30 PM Drainage Description None 04/17/2018 7:30 PM Drainage Amount None 04/17/2018 7:30 PM Odor No 04/17/2018 7:30 PM Wound Surface Color [place] 04/17/2018 7:30 PM Surrounding Skin Intact 04/17/2018 7:30 PM Number of days: 10 Surgical Incision 04/15/18 1224 Back - Middle (Active) Dressing Status Clean, Dry AND Intact 04/17/2018 7:30 PM Frequency of Dressing Change As Needed 04/17/2018 7:30 PM Dressing /Treatment Type Band Aid 04/16/2018 8:32 AM Drainage Description None 04/17/2018 7:30 PM Drainage Amount None 04/17/2018 7:30 PM Edges Intact 04/17/2018 7:30 PM Hematoma No 04/17/2018 7:30 PM Number of days: 4 MNT Billing Type: Re-assess/15 min 2 units SIGNATURE: Domi Arita RD PATIENT NAME: Ifeoma Ashraf DATE: April 20, 2018 TIME: 9:48 AM PAGER: [phone] HEMOGRAM Collected: 04/20/2018 Status: F Source: [facility] 5:10 AM HEALTH SYSTEM REPOSITORY TYPE CODE TESTS RESULT OUT OF REFERENCE UNITS RANGE LAB WBC(LOINC) 3.98-10.04 thou/cmm WBC 7.42 LAB RBC(LOINC) 3.93-5.22 mil/cmm Low RBC 3.45 LAB HGB(LOINC) 11.2-15.7 g/dL Hgb 11.2 LAB HCT(LOINC) 34.1-44.9 % Hct 35.8 LAB MCV(LOINC) 79.4-94.8 fl High MCV 103.8 LAB MCH(LOINC) 25.6-32.2 pg High MCH 32.5 LAB MCHC(LOINC) 31.6-34.8 % Low MCHC 31.3 LAB RDW(LOINC) 11.7-14.4 % High RDW 23.5 LAB RDWSD(LOINC 36.4-46.3 fl ) High RDW SD 90.9 LAB PLT(LOINC) 182-369 thou/cmm Platelet 182 LAB MPV(LOINC) 9.4-12.3 fl MPV 10.0 Performed By: #### CBC1 #### [facility] [address] [place] [address] BASIC PANEL Collected: 04/20/2018 Status: F Source: [facility] 5:10 AM HEALTH SYSTEM REPOSITORY TYPE CODE TESTS RESULT OUT OF REFERENCE UNITS RANGE LAB NA(LOINC) 136-145 mEq/L Sodium Blood 139 LAB K(LOINC) 3.5-5.1 mEq/L Low Potassium Blood 3.2 LAB CL(LOINC) 98-107 mEq/L Chloride Blood 101 LAB CO2(LOINC) 21-32 mEq/L CO2 High Blood 33 LAB GLU(LOINC) 70-99 mg/dL Glucose Blood 93 LAB BUN(LOINC) 7-18 mg/dL BUN Blood 7 LAB CREA(LOINC 0.51-0.95 mg/dL ) Creatinine Blood 0.55 LAB CA(LOINC) 8.5-10.1 mg/dL Calcium Blood 8.7 LAB ANGAP(LOIN 8-16 C) Anion Gap 8 Performed By: #### P8 #### [facility] [address] [place] [address] MAGNESIUM BLOOD Collected: 04/20/2018 Status: F Source: [facility] 5:05 AM HEALTH SYSTEM REPOSITORY TYPE CODE TESTS RESULT OUT OF REFERENCE UNITS RANGE LAB MAG(LOINC) 1.6-2.6 mg/dL Magnesium Blood 1.7 Performed By: #### MAG #### [facility] [address] [place], [place] [address] THERAPY NT Observed: 04/19/2018 Status: COMPLETED Source: [facility] 3:43 PM CLINIC OTHER CAMPUS REPOSITORY HNO ID: [id number] Author: Jessika Ching/Leela Metcalf Service: Occupational Therapy Author Type: Occupational Therapist Type: Therapy (PT/OT/Speech/Resp) Filed: 04/19/2018 3:55 PM Note Text: Occupational Therapy Treatment SERVICE DATE: 04/19/2018 SERVICE TIME: 1512 to 1538 ROOM: [place] [address] Recommended Discharge Disposition: Subacute/SNF Justification For Post Acute Needs: Anticipate that patient will require daily (5x/wk) skilled therapy in a post-acute facility setting at the time of acute hospital discharge;Motivated;Medically complex;Good sitting tolerance;Good family support Anticipated Discharge Needs: Physical Assist at Home Physical Assist at Home for: Transfers;Ambulation;Stairs;Safety;Self Care OT Recommendations to Nursing: Encourage patient participation with in-bed ADL?s;Utilize bed in Chair Position OT 6 Clicks Score: 13 Precautions/Activity Restrictions: Fall Risk;Bed/Chair Alarm Precaution/Activity Restriction Comments: IV, tele Isolation Type: None ASSESSMENT: Patient very upset upon arrival, patient repeats, I can't, I can't afford.... (unable to finish statement.) Patient still having expressing impairments. Did note some neglect and inattention to the right side while sitting up at the edge of bed. Required frequent verbal cues and direction to follow commands. Patient is a very high fall risk. Patient Disposition at Start of Session: Supine in Bed;Bed Alarm Patient Disposition at End of Session: Supine in Bed;Call Sidhu in Reach;Bed Alarm Tolerance Limited By (patient very upset/anxious) Occupational Therapy Problem List: Cognitive Deficit;Education Deficit;Safety Deficits;Impaired Self Care;Decreased Activity Tolerance;Decreased Strength;Functional Mobility Impairment;Balance Impaired;Motor Planning Difficulties;Impaired Fine Motor Skills Patient /Caregiver Goals: Go To Rehab Goals for Plan of Care: Feeding with: Set Up Grooming with: Set Up Upper Body Dressing with: Contact Guard Assistance Toilet Transfer with: Moderate Assistance Demonstrate Positive Coping Strategies with: Minimal Assistance Increased Awareness of Cognitive Impairments as Related to ADL's/IADL's: Verbalized;Demonstrated Progress Toward Goals: Progressing as expected Due To: weakness, cognitive changes Rehab Potential: Good PLAN: Treatment Frequency (times per week): 3 (1-3) Current admission Treatment Interventions: Education;Self Care / Home Management;Energy Conservation Training;Functional Mobility Training;Cognitive Training Plan of Care developed with: Patient;Family TREATMENT INTERVENTIONS: Therapy Diagnosis: Reduced mobility-other;Decreased activities of daily living (ADL);Muscle Weakness (generalized);Abnormalities of gait and mobility-other;General symptoms and signs-other;Lack of coordination-other;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 Instructed patient in supine to and from sit pushing with upper extremities to sit up, max cues for safety. Facilitated static and dynamic sitting balance activity at the edge of bed for 8 minutes to increase activity tolerance, provided moderate verbal direction for good body mechanics. Also required moderate verbal cues to attend to the right side of the room, as patient continuously looks to the left side of the room. Self Detention Management (61020) Treatment Minutes: 13 1 unit Skilled Intervention(s): Instructed in energy conservation during self care and functional transfers, as patient fatigues very quickly. Provided frequent rest break throughout due to anxious behaviors. Provided cuing for oral hygiene while sitting at the EOB, required max verbal cues to inital task, patient very upset and unable to complete task fully. Provided instruction, cuing and facilitation for lower body dressing at bed level, required max verbal instruction to sequence. Education in fall prevention and safety while sitting EOB during self care. Provided emotional support to help calm patient down throughout entire session. Educated on the benefit of getting continued OT services at d/c to increase independence with self care and functional transfers, fair understanding. Total Timed Code Treatment Minutes: 26 Total Treatment Time (minutes): 26 SUBJECTIVE: Current Hospital Course: Chart reviewed and no significant medical updates relevant to therapy were noted Reason for Occupational Therapy Consult: encephalopathy falls Relevant Past Medical History: sepsis, chornic SDH,CHF Patient Report: Found supine, agreeable to therapy, reports abdominal pain. I am doing my best. Home Environment Patient Lives With: Family (has been at SNF for ~2 weeks) Assistance Available: 24 Hour Entry To Home: Stairs;Without Rail (they have a non-wheeled walker placed against house to use ) Number Of Stairs Into Home: 2 Number Of Stairs To Bed/Bath: 0 Equipment Owned: Wheeled Walker;Standard Walker;Rollator;Shower Chair Prior Functional Level: Within Functional Limits (ambulated w/rollator infrequently) OBJECTIVE: Communication Deficits: Expressive Deficits Orientation Deficits: Confused;Not oriented to Place;Not oriented to Time (verbal cue to state correct year) Responsiveness: Alert;Awake (cooperative, non agitated) Follows Commands: 1-step Commands Memory Deficits: Short Term;Lisw (difficulty with recall) Executive Function Deficits: Sequencing;Problem Solving;Safety Awareness Sequencing Deficit: Moderate impairment Safety Awareness Deficit: Maximum impairment Problem Solving Deficit: Maximum impairment Mini Cog Score: 0 (04/13/18 1400) Psychosocial Deficit: combative at prior facility due to metabolic issues/sepsis Vision Deficits: Visual attention deficit Visual Attention Deficit: Right CURRENT FUNCTIONAL STATUS: Current Activities of Daily Living Assist Level Feeding Minimal Assistance Grooming Moderate Assistance Bathing Upper Body Moderate Assistance Bathing Lower Body Maximal Assistance Dressing Upper Body Moderate Assistance Dressing Lower Body Maximal Assistance Toileting Maximal Assistance Functional Mobility Assist Level Rolling Moderate Assistance Supine to Sit Moderate Assistance Sit to Supine Moderate Assistance Scooting Moderate Assistance Sit to Stand Stand to Sit Bed to Chair Toilet/Commode Functional Mobility Hand Dominance: Right Range Of Motion: (grossly intact reach) Strength: (weakness all axtremities) Please see discipline specific clinical documentation flowsheet for complete details for this therapy evaluation/treatment. SIGNATURE: Jessika Metcalf OTR/L PATIENT NAME: Ifeoma Ashraf DATE: April 19, 2018 TIME: 3:43 PM THERAPY NT Observed: 04/19/2018 Status: COMPLETED Source: [facility] 3:42 PM [facility] REPOSITORY HNO ID: [id number] Author: Mushtaq MckeonPt) Lois Service: Physical Therapy Author Type: Physical Therapist Type: Therapy (PT/OT/Speech/Resp) Filed: 04/19/2018 3:43 PM Note Text: PHYSICAL THERAPY MISSED VISIT SERVICE DATE: 04/19/2018 SERVICE TIME: 1541 to 1541 ROOM: [place] [address] Attempted Treatment. Patient not seen due to Other: See Comment (Upset and nauseated). Just finished with OT, upset, frustrated, nauseated. Will attempt tomorrow morning. SIGNATURE: Mushtaq Abreu PT PATIENT NAME: Ifeoma Ashraf DATE: April 19, 2018 TIME: 3:42 PM NURSING PROG Observed: 04/19/2018 Status: COMPLETED Source: [facility] 3:15 PM [facility] REPOSITORY HNO ID: [id number] Author: Corrie (Rn) Real, RN Service: Nursing Author Type: Registered Nurse Type: Nursing Progress Note Filed: 04/19/2018 3:38 PM Note Text: Patient anxious and unable to express herself states I can't.... Tearful. Emotional support offered. CASE MANAGEM Observed: 04/19/2018 Status: COMPLETED Source: [facility] 3:10 PM [facility] REPOSITORY HNO ID: [id number] Author: Sowmya (Rn) Myesha, NAHUM Service: Care Management Author Type: Registered Nurse Type: Care Mgt Progress Note Filed: 04/19/2018 3:53 PM Note Text: CARE MANAGEMENT PROGRESS NOTE SERVICE DATE: 04/19/2018 SERVICE TIME: 3:10 PM LOS: 12 days Chart reviewed. Lumbar puncture has some outstanding results. Pt remains encephalopathic and cause is unknown. Call To [facility], at [phone],and spoke with admitting Madelyn. [facility] is for behavior patients and they do not take [employer] and [facility] is a SNF on the same campus and they could take her as long as they can get prior auth. She had some questions that I answered and she will need PT/OT update. Called to therapy department and Jess was going to get someone either this afternoon or in am to re-eval. Call to parents at [phone] spoke with mother Darlene and she would prefer [facility] [phone]. I called [facility] and was able to leave a message for Ingrid Sands(?) to see if they can accept patient. Will need to call them again on 04/20 if no response before I leave today. Mother wants [facility] due to it is very close to her and [facility] farther away. Plan is likely to discharge tomorrow. Pending precert is obtained from insurance. SIGNATURE: Sowmya Brunner RN PATIENT NAME: Ifeoma Ashraf DATE: April 19, 2018 TIME: 3:10 PM PAGER/CONTACT #: [phone] PROGRESS Observed: 04/19/2018 Status: COMPLETED Source: [facility] 12:07 PM CLINIC OTHER CAMPUS REPOSITORY HNO ID: [id number] Author: Janusz Garcia Service: Hospital Medicine Author Type: Physician Type: Progress Notes Filed: 04/19/2018 12:11 PM Note Text: INPATIENT PROGRESS NOTE CHIEF COMPLAINT: AMS INTERVAL HPI: No new complaits. Pt's MS seems stable formlast week. Cannot answer simple questions. ? Global aphasia. Also has trouble following simple commands. appears in no distress. PHYSICAL EXAM: BP 112/76 Pulse 86 Temp (Src) 98.6 (Oral) Resp 18 Ht 5' 6 (1.68m) Wt 194 lb 0.1 oz (88.0kg) SpO2 100% LMP 06/06/2006 BMI 31.33 kg/(m2). GENERAL: Alert, no distress, cooperative LUNGS: Lungs clear to auscultation, Good diaphragmatic excursion CARDIAC: Normal S1 and S2; no rubs, murmurs, or gallops ABDOMEN: Abdomen soft, non-tender, BS normal, No masses or organomegaly EXTREMITIES: No edema NEURO: Sensation grossly intact, Cranial nerves II-XII intact MSK 5/5 all ext DATA: Diagnostic tests reviewed for today's visit: CBC, Coags, BMP, Mg, Phos Recent Labs 04/19/18 0650 04/17/18 0620 WBC 9.87 4.58 HB 10.9* 11.1* HCT 34.0* 35.7 PLT 187 169* NA 141 139 K 3.2* 3.1* CHLOR 101 101 CO2 33* 30 BUN 5* 5* CREAT 0.58 0.61 GLUC 99 109* CA 8.8 9.0 MG -- 1.5* P -- 3.3 Assessment/Plan # encephalopathy. Unclear etio. Seems stable. Cannot have an MRI 2/2 pacer neurology following.Had LP on 04/15. No signs of infection. 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 Recommended Discharge Disposition: Subacute/SNF SIGNATURE: Janusz Garcia MD PATIENT NAME: Ifeoma Ashraf DATE: April 19, 2018 TIME: 12:07 PM PAGER: CONSULT PROG Observed: 04/19/2018 Status: COMPLETED Source: [facility] 7:10 AM CLINIC OTHER CAMPUS REPOSITORY HNO ID: [id number] Author: Divina Srinivasan Service: Neurology Author Type: Nurse Practitioner Type: Consult Progress Note Filed: 04/19/2018 7:31 AM Note Text: CSF Enterovirus-- neg HSV DNA--neg [place]--neg Pending results LAMOTRIGINE METHYLMALONIC ACID CCSF cytology (order placed 04/17) was not send to lab, spoke with dental laboratory assistant sample still available to be tested if rec sent down. RN unavailable spoke with community education coordinator who will send down rec and notify RN of order. Will follow results peripherally, and make recs if needed HEMOGRAM Collected: 04/19/2018 Status: F Source: [facility] 6:50 AM HEALTH SYSTEM REPOSITORY TYPE CODE TESTS RESULT OUT OF REFERENCE UNITS RANGE LAB WBC(LOINC) 3.98-10.04 thou/cmm WBC 9.87 LAB RBC(LOINC) 3.93-5.22 mil/cmm Low RBC 3.36 LAB HGB(LOINC) 11.2-15.7 g/dL Low Hgb 10.9 LAB HCT(LOINC) 34.1-44.9 % Low Hct 34.0 LAB MCV(LOINC) 79.4-94.8 fl High MCV 101.2 LAB MCH(LOINC) 25.6-32.2 pg High MCH 32.4 LAB MCHC(LOINC) 31.6-34.8 % MCHC 32.1 LAB RDW(LOINC) 11.7-14.4 % High RDW 23.7 LAB RDWSD(LOINC 36.4-46.3 fl ) High RDW SD 88.5 LAB PLT(LOINC) 182-369 thou/cmm Platelet 187 LAB MPV(LOINC) 9.4-12.3 fl MPV 10.0 Performed By: #### CBC1 #### [place] [address] BASIC PANEL Collected: 04/19/2018 Status: F Source: [facility] 6:50 AM HEALTH SYSTEM REPOSITORY TYPE CODE TESTS RESULT OUT OF REFERENCE UNITS RANGE LAB NA(LOINC) 136-145 mEq/L Sodium Blood 141 LAB K(LOINC) 3.5-5.1 mEq/L Low Potassium Blood 3.2 LAB CL(LOINC) 98-107 mEq/L Chloride Blood 101 LAB CO2(LOINC) 21-32 mEq/L CO2 High Blood 33 LAB GLU(LOINC) 70-99 mg/dL Glucose Blood 99 LAB BUN(LOINC) 7-18 mg/dL Low BUN Blood 5 LAB CREA(LOINC 0.51-0.95 mg/dL ) Creatinine Blood 0.58 LAB CA(LOINC) 8.5-10.1 mg/dL Calcium Blood 8.8 LAB ANGAP(LOIN 8-16 C) Anion Gap 10 Performed By: #### P8 #### [place] [address] PROGRESS Observed: 04/18/2018 Status: COMPLETED Source: [facility] 7:00 PM CLINIC OTHER CAMPUS REPOSITORY HNO ID: [id number] Author: Maricruz Manrique Service: Hospital Medicine Author Type: Physician Type: Progress Notes Filed: 04/19/2018 10:53 AM Note Text: Pt seen 04/18/18- VSS- nad, when I ask her to tell me her name she nods no- H reg- Lclear- abd soft- extr no swelling- Imp: See my note 04/17/18- Dc planning- ALLIED HEALTH Observed: 04/18/2018 Status: COMPLETED Source: [facility] 2:00 PM CLINIC OTHER CAMPUS REPOSITORY HNO ID: [id number] Author: Angelina Osorio (Marine Services Technician) Chaplain Dashawn Service: Spiritual Care Author Type: Marine Services Technician Type: Allied Health Filed: 04/18/2018 2:16 PM Note Text: SPIRITUALCARE Spiritual Care Visit- Brief Note Name: Ifeoma Ashraf Date: April 18, 2018 Notes: I was paged to visit the patient's room, she was upset. First the clinical appeals rn internal medicine physician visited the patient's room and found her very upset and thought a female clinical appeals rn may be better with the patient. When I came to the patient's room, her mother and her mother's friend were working on making the patient comfortable. The patient was suffering from head pains and vertigo. I prayed with the patient and her visitors. I let them know that chaplains are always available if they need one. Marine Services Technician Signature: Chaplain Ayana To contact the Spiritual Care Department: Please call [phone] or Page the On-Call Marine Services Technician at pager [phone] Thank you for the opportunity to be of service. This is an electronically created document. IF PRINTED, PLEASE DO NOT REMOVE FROM THE CHART OR MODIFY PRINTED COPY. CASE MANAGEM Observed: 04/18/2018 Status: COMPLETED Source: [facility] 1:47 PM [facility] OTHER [place] REPOSITORY HNO ID: [id number] Author: Francy (Rn) NAHUM Kaur Service: Care Management Author Type: Registered Nurse Type: Care Mgt Progress Note Filed: 04/18/2018 1:52 PM Note Text: CARE MANAGEMENT PROGRESS NOTE SERVICE DATE: 04/18/2018 SERVICE TIME: 1:47 PM LOS: 11 days Met with mother bs, she wants to try [facility] even though they are not on the list. . SIGNATURE: Francy Kaur RN PATIENT NAME: Ifeoma Ashraf DATE: April 18, 2018 TIME: 1:47 PM PAGER/CONTACT #: [phone] ALLIED HEALTH Observed: 04/18/2018 Status: COMPLETED Source: [facility] 12:55 PM [facility] REPOSITORY HNO ID: [id number] Author: Shiela (Rn) NAHUM Dahl Service: Nursing Author Type: Registered Nurse Type: Allied Health Filed: 04/18/2018 1:09 PM Note Text: HALO NURSE PROGRESS NOTE SERVICE DATE: 04/18/2018 SERVICE TIME: 12:55pm REFERRED BY: Zeenat MORENO VISIT WITH: Patient and Family Member REASON FOR VISIT: Coping issues, Grief and loss, Length of stay, New diagnosis and Serious illness/trauma CONDITION: Neuromuscular INTERVENTIONS: Education, Emotional support, Prayer with patient and Therapeutic listening TIME SPENT (minutes): 60 Ifeoma and her mother were open to a visit. Affirmation given. Encouragement To deep breathe. Nausea present. Thanked me for the visit. SIGNATURE: Shiela Dahl RN PATIENT NAME: Ifeoma Ashraf DATE: April 18, 2018 TIME: 1:05 PM ALLIED [facility] Observed: 04/18/2018 Status: COMPLETED Source: [facility] 11:30 AM [facility] REPOSITORY HNO ID: [id number] Author: Zeny DE Service: (none) Author Type: (none) Type: Allied Health Filed: 04/18/2018 4:18 PM Note Text: MUSIC THERAPY NOTE SERVICE DATE: 04/18/2018 SERVICE TIME: 11:30 Referred By: Nurse Reason for Referral: Orientation Session Type: Follow Up Time Spent (minutes): 45 GOALS: Goals: Increase Relaxation;Promote Feelings of Control;Provide Emotional Support;Other: See Comment (improve cognition) Coping Items Addressed: Skills INTERVENTIONS: Interventions: Making Choices;Music Listening;Music-Assisted Relaxation Making Choices: Songs Music-Assisted Relaxation: Breathing;Progressive Muscle Relaxation;Relaxation Response Listening Type: Live;Recorded Song-Writing: Original Response Before After Facial Behavior 2 - Frown/Grimace (session interrupted) Body Movement 1 - Restless (session interrupted) Sleep N/A - Awake N/A - Awake Vocal 2 - Crying, Moaning, Complaining (session interrupted) RESPONSE: Music Choices: Made Choices Number of Choices: 2 Response During Interventions: Knew Songs;Other: See Comment (closed eyes) Music Used: Amazing Elaine My Chains are Gone; You Lift Me Up; The World's Greatest; Relaxing music Style of Music: various Family Present: No Patient's Verbal Response: (session interrupted) OUTCOME: Goals: Unable to Determine;Met Met: Increase Relaxation FOLLOW UP: Will Continue to Follow Ms. Ashraf presented in bed, lying down and crying. She was welcoming of the music therapist, remembered her from previous sessions, and was agreeable to music therapy at this time. She said she was feeling badly this morning and didn't know why. She also reported a man in the hallway who was laughing at her which bothered her greatly (this therapist heard talking in the hallway which Ifeoma was attributing to the man that she saw). The music therapist engaged Ifeoma in some meditation, breathing, and progressive muscle relaxation. Ifeoma participated well at first, closing her eyes and breathing, but became tearful when she reported that she heard the man laughing in the hallway again. Ifeoma asked for the music therapist to play music. The music therapist provided live, preferred music at bedside using voice and guitar. Ifeoma closed her eyes and appeared to relax, breathing slowly when prompted by the music therapist. In between songs, she said how relaxed she was feeling. The session was interrupted when Ifeoma became very nauseous and vomited; staff arrived to assist. As this was happening, Ifeoma's mom and aunt arrived to the room. The music therapist ended the session. Will continue to follow. SIGNATURE: Zeny Thayer OR-BC PATIENT NAME: Ifeoma Ashraf DATE: April 18, 2018 TIME: 11:30am PAGER/CONTACT #: P: [phone] CASE MANAGEM Observed: 04/18/2018 Status: COMPLETED Source: [facility] 10:46 AM CLINIC OTHER CAMPUS REPOSITORY HNO ID: [id number] Author: Francy Sharpe) NAHUM Kaur Service: Care Management Author Type: Registered Nurse Type: Care Mgt Progress Note Filed: 04/18/2018 10:50 AM Note Text: CARE MANAGEMENT PROGRESS NOTE SERVICE DATE: 04/18/2018 SERVICE TIME: 10:47 AM LOS: 11 days [facility] has no beds, sent to [facility], they are OON, tcvm to mother darlene for more choices. Will cont to follow . . SIGNATURE: Francy Kaur RN PATIENT NAME: Ifeoma Ashraf DATE: April 18, 2018 TIME: 10:46 AM PAGER/CONTACT #: [phone] ALLIED HEALTH Observed: 04/18/2018 Status: COMPLETED Source: [place] 9:56 AM CLINIC OTHER CAMPUS REPOSITORY HNO ID: [id number] Author: Dejuan Cox Student Service: (none) Author Type: (none) Type: Allied Health Filed: 04/18/2018 10:27 AM Note Text: SPIRITUAL CARE Spiritual Care Visit Record Name: Ifeoma Ashraf Date: April 18, 2018 Type of Visit: Referral from RN. Purpose of Referral (if stated): House Marine Services Technician paged to see the pt, House Marine Services Technician referred to me since I was on the unit. Urgency of Visit: Routine Visit was with (pt, family, other) and name(s): pt Ifeoma. SPIRITUAL CARE VISIT Spiritual Distress: 10 - Marine Services Technician Observation. Spiritual Distress Scale (1-10 with 1= low distress and 10 = highest distress imaginable) Explain Meaning of Rating: Pt was out of control, thrashing around in her bed, screaming and crying, I need help, please!, but pt would not express what she needed. Pt also was saying there was a bug on the wall (though there wasn't) and that there was a cat (but there wasn't). Pt also was calling for her mother and father and for Shadi (who were not present). I tried again to ask her, but the pt said she was afraid to tell me and could I get her help. 1. Ministry Provided During Visit: Spiritual Presence / Support 2. Themes Discussed During Visit: Other: None, pt was crying out for help and out of control. 3. Spiritual Oriental Orthodox Issues, Beliefs Significant to Healing, or Other Notes: When I entered the room, from the door I could hear the pt calling for help. Pt was lying in bed, thrashing around, and crying for help. Pt completely out of control and seemed to be hallucinating (saying there was a bug and cat there, and there wasn't) and calling for Shadi and her mom and dad (who were not present). Though I introduced myself to the pt multiple times, pt said, I still don't know who you are! Then the pt screamed, Please help me! and aggressively reached out towards me, so I backed away from the pt's bed. I kept asking the pt what help she needed and she said I'm afraid to tell you! No one believes me. Please, can you get someone to help me. I told the pt I would get her nurse and ended my visit. While the pt is in this mental state and not sharing what she needs help with, I don't feel there is anything that the Spiritual Care Team can do for her. REFERRAL(S ) / TEAM COLLABORATION Referrals: Other Health Care Mortgage Assistant- Who: Pt's RN, Enamel Machine Operator, Psych Notes Regarding Collaboration / Consultation With Care Team: I mentioned to Care Management and the Rural Route Carrier that the pt was out of control and appears to be hallucinating. I asked if Psych had been contacted for a consult. Rural Route Carrier talked to the pt's RN who said the pt is like that. Enamel Machine Operator said she is aware and has been talking to the pt's mother and trying to place the pt in a facility. FUTURE SPIRITUAL CARE PLANS Will See: As Needed Only Follow-up Notes: I could not inform the pt of Marine Services Technician availability because the pt was out of control and not understanding who Spiritual Care was even though I told her numerous times. Marine Services Technician Signature: Dejuan Cox Student To contact the Spiritual Care Department: Please call [phone] or Page the On-Call Marine Services Technician at pager [phone] Thank you for the opportunity to be of service. This is an electronically created document. IF PRINTED, PLEASE DO NOT REMOVE FROM THE CHART OR MODIFY PRINTED COPY. NURSING PROG Observed: 04/18/2018 Status: COMPLETED Source: [place] 5:58 AM CLINIC OTHER CAMPUS REPOSITORY HNO ID: [id number] Author: Jewel (Rn) NAHUM Noble Service: Nursing Author Type: Registered Nurse Type: Nursing Progress Note Filed: 04/18/2018 5:59 AM Note Text: Pt refused blood work and morning medication synthroid, pt thinks that we are attempting to poison her. ALLIED HEALTH Observed: 04/17/2018 Status: COMPLETED Source: [place] 2:10 PM [facility] OTHER [place] REPOSITORY HNO ID: [id number] Author: Zeny Thayer [facility] Service: (none) Author Type: (none) Type: Allied Health Filed: 04/17/2018 4:27 PM Note Text: MUSIC THERAPY NOTE SERVICE DATE: 04/17/2018 SERVICE TIME: 2:10pm Referred By: Nurse Reason for Referral: Orientation Session Type: Follow Up Time Spent (minutes): 60 GOALS: Goals: Decrease Anxiety;Improve Mood;Increase Relaxation;Provide Emotional Support;Other: See Comment (improve cognition) Coping Items Addressed: Skills INTERVENTIONS: Interventions: Song-Writing;Making Choices;Music-Assisted Relaxation;Music Listening;Therapeutic Use of Self/Verbal Processing Making Choices: Songs Music-Assisted Relaxation: Breathing;Relaxation Response Listening Type: Live Song-Writing: Original Response Before After Pain 0/10 0/10 Anxiety (a lot) (I'm feeling better) Mood (did not engage with scale) (did not ask) Facial Behavior 3 - Clenched Teeth/Tension 0 - Smiling Body Movement 1 - Restless 0 - No Movement/Appropriate Movement Sleep N/A - Awake N/A - Awake Vocal 2 - Crying, Moaning, Complaining 0 - Positive Scale: 0 = No pain/anxiety 10 = Worst possible pain/anxiety RESPONSE: Music Choices: Made Choices Number of Choices: 2 Response During Interventions: Knew Songs;Other: See Comment (closed eyes) Music Used: Here Comes the Sun; Let it Be; Hallelujah; Michael Style of Music: Various Family Present: No Patient's Verbal Response: Positive OUTCOME: Goals: Met Met: Decrease Anxiety;Improve Mood;Increase Relaxation;Provide Emotional Support;Other: See Comment (improve cognition) FOLLOW UP: Will Continue to Follow Ms. Ashraf was referred to music therapy for cognition. Before the music therapist entered the room, she could hear Ms. Ashraf crying in her room. She presented in bed, tearful and anxious appearing. She was agreeable to music therapy at this time. She stated she had a good morning but then she didn't know why she felt terrible now. She stated she felt depressed. She was AANDOx1 at this time (although said to call her either Ifeoma or Mireya). She said she was interested in slow, pretty music at this time. The music therapist provided her with live, preferred music at bedside using voice and guitar. Ms. Ashraf closed her eyes during each song. In between songs, she appeared to calm and discussed feeling overwhelmed by feelings. She stated she wasn't very nice this morning and attributed that to feeling overwhelmed by feelings. She and the music therapist worked on deep breathing to music and Ms. Ashraf appeared to relax. She engaged in song writing with the music therapist to further process feelings. Following the session, she stated she felt much better. She is open to follow up. Will continue to follow. SIGNATURE: Zenyfernando Hernandezher [facility] PATIENT NAME: Ifeoma Ashraf DATE: April 17, 2018 TIME: 4:22 PM PAGER/CONTACT #: P: [phone] PROGRESS Observed: 04/17/2018 Status: COMPLETED Source: [place] 11:20 AM CLINIC OTHER CAMPUS REPOSITORY [facility] ID: [id number] Author: Maricruz Manrique Service: Hospital Medicine Author Type: Physician Type: Progress Notes Filed: 04/17/2018 8:16 PM Note Text: INTERNAL MEDICINE PROGRESS NOTE SERVICE DATE: 04/17/2018 SERVICE TIME: 11:20 AM ADMITTING PHYSICIAN: Agapito Liao Subjective CHIEF COMPLAINT: f/u medical issues listed below Current Facility-Administered Medications: potassium chloride 40 mEq oral powder (KLOR-CON) 40 mEq ORAL BID QUEtiapine 50 mg tablet (SEROquel) 50 mg ORAL AT BEDTIME melatonin 9 mg tab(s) 9 mg ORAL AT BEDTIME pill lens generator (patient-specific) 1 Each Miscell. (Med.Supl.;Non- Drugs) PRN simethicone, chewable 80 mg tab(s) (MYLICON) 80 mg ORAL QID PRN bisacodyl 10 mg suppository (DULCOLAX) 10 mg RECTAL DAILY PRN acetaminophen 325-650 mg tab(s) (TYLENOL) 325-650 mg ORAL q 6 H PRN atorvastatin 10 mg tab(s) (LIPITOR) 10 mg ORAL AT BEDTIME folic acid 1 mg tab(s) 1 mg ORAL BID levothyroxine 75 mcg tab(s) (SYNTHROID) 75 mcg ORAL BEFORE BREAKFAST DAILY dextrose 40 % 15 g 15 g ORAL PRN Or glucagon 1 mg injection (GLUCAGEN) 1 mg INTRAMUSCULAR PRN Or dextrose 50% in water 25 mL syringe 12.5 g INTRAVENOUS PRN carvedilol 3.125 mg tab(s) (COREG) 3.125 mg ORAL BID w MEALS digoxin 0.125 mg tab(s) (LANOXIN) 0.125 mg ORAL DAILY lamoTRIgine 200 mg tab(s) (LaMICtal) 200 mg ORAL AT BEDTIME INTERVAL HISTORY OF PRESENT ILLNESS: Objective PHYSICAL EXAM: Patient Vitals for the past 24 hrs: BP Temp Temp src Pulse Resp SpO2 04/17/18 0600 106/62 37 ?C (98.6 ?F) Oral 91 16 98 % 04/16/18 1812 108/63 37 ?C (98.6 ?F) Oral 91 16 98 % 04/16/18 1431 104/72 37.1 ?C (98.8 ?F) Oral 96 16 98 % Body mass index is 33.55 kg/m?. GENERAL: Alert, no distress, cooperative SKIN: Skin color, texture, turgor normal. No rashes or lesions. LUNGS: Lungs clear to auscultation. Good diaphragmatic excursion. CARDIAC: Normal S1 and S2; no rubs, murmurs, or gallops ABDOMEN: Abdomen soft, non-tender, BS normal, No masses or organomegaly EXTREMITIES: Extremities normal, no deformities, edema, clubbing or skin discoloration. , No ulcers DATA: Diagnostic tests reviewed for today's visit: Significant findings were revd K 3.1 (L) Assessment/Plan # encephalopathy. Neuro following # per nsurg: appears to be a small R hemisphere hygroma or chronic SDH that I do not recommend surgery for. # hypokalemia PLAN: replace potassium # hypomagnesemia-replace # history of Non Hodgkins lymphoma # DMII # history of Chronic Systolic CHF 2/2 chemotherapy induced LV dysfunction, and is ?SP ICD implantation?for primary prevention of sudden ? Recommended Discharge Disposition: Subacute/SNF SIGNATURE: Maricruz Manrique DO PATIENT NAME: Ifeoma Ashraf DATE: April 17, 2018 TIME: 11:20 AM PAGER/CONTACT #: [phone] FARRELLG Observed: 04/17/2018 Status: COMPLETED Source: [place] 11:15 AM [facility] REPOSITORY HNO ID: [id number] Author: Jamie Blanco RN Service: Nursing Author Type: Registered Nurse Type: Nursing Progress Note Filed: 04/17/2018 12:15 PM Note Text: Nursing Progress Note Patient Name: Ifeoma Ashraf Patient Location: [place] [address]/[place] [address]* Daily Note:Woke patient up attempted to do my assessment and administer morning medications. Pt yelled at me to get out of the room. Patient did not receive medications. Notified physician. This note was completed by: Jamie Blanco RN CASE MANAGEM Observed: 04/17/2018 Status: COMPLETED Source: [place] 10:40 AM [facility] REPOSITORY HNO ID: [id number] Author: Francy Kaur RN Service: Care Management Author Type: Registered Nurse Type: Care Mgt Progress Note Filed: 04/17/2018 10:41 AM Note Text: CARE MANAGEMENT PROGRESS NOTE SERVICE DATE: 04/17/2018 SERVICE TIME: 10:40 AM LOS: 10 days [facility] is not in network, Lnia Cantu is full [facility]CVM to [facility] to see if they can accept, will cont to follow. . SIGNATURE: Francy Kaur RN PATIENT NAME: Ifeoma Ashraf DATE: April 17, 2018 TIME: 10:40 AM PAGER/CONTACT #: [phone] NUTRITION Observed: 04/17/2018 Status: COMPLETED Source: [place] 8:51 AM [facility] REPOSITORY HNO ID: [id number] Author: Domi Arita Service: Nutrition Therapy Author Type: Registered Dietitian Type: Nutrition Filed: 04/17/2018 11:47 AM Note Text: NUTRITION THERAPY PROGRESS NOTE SERVICE DATE: 04/17/2018 SERVICE TIME: 10:42 RECOMMENDED DIAGNOSIS: MILD PROTEIN-CALORIE MALNUTRITION per Registered Dietitian on 04/13/18 In the context of Acute Illness or Injury based on: Insufficient Energy Intake: less than or equal to 50% for greater than or equal to 5 days NUTRITION CARE PLAN Problem, Etiology and Signs/Symptoms: Suboptimal oral intake related to altered mental status/confusion as evidenced by nursing documentation of PO intake 0-50% since admission. Intervention: 1. Continue with Boost Glucose Control TID to provide 250 calories, 14 grams protein each 2. Magic cup once a day to provide 290 calories, 9 grams protein each Monitor and Evaluation: Goal: Meet >75% of estimated needs Monitor fluid/electrolyte balance Monitor labs, I/Os, vital signs, weight Discharge Nutrition Recommendations: Diet: Regular - consider liberal diet due to pt with poor PO intake Supplements: Oral supplements of pt's choice if po intake continues to be inadequate Nutrition Follow-up: For PO itnake Per HPI: This is a 53 year old female with history of Non-Hodgkin's lymphoma s/p stem cell transplant, HFrEF (15%), Type 2 Diabetes Mellitus, ALEJANDRO, DVT of Left Axillary and Brachial Veins admitted directly from outside Emergency Department for her altered mental status. ?Per outside records: She was recently admitted to the hospital and was found to have congestive heart failure with an ejection fraction of 15%. She was discharged to a nursing facility. At the nursing facility, she became combative. She had a CT performed yesterday that showed possible hygroma versus subacute resolving subdural hematoma. At the Emergency Department she was hypotensive 97/72, pulse 108, alert and oriented only to self, Cr 1.3, anion gap 12, INR was 2.3, UA showed evidence of 50-100 white cells with 4+ bacteria nitrates. Troponin was indeterminate at 0.046, lactic acid was 6.7. She received Haldol, Ceftriaxone and was started on 250cc of maintenance fluids. ? Per neurosurgery, appears to be a small R hemisphere hygroma or chronic SDH. Neurosurgery not recommending surgery. Pt transferred to 5400 on 04/08 Interval History: pt with acute encephalopathy - etiology unclear. UA negative. Unable to get MRI as device is MRI compatible however old device leads are not. Active Hospital Problems Diagnosis Date Noted - Malnutrition of mild degree (HCC) 04/13/2018 - Chronic combined systolic and diastolic CHF (congestive heart failure) (HCC) 04/11/2018 Overview Note: LVEF 25-30%, Stg 3-4 diastolic dysfunction, echo 04/12 - Altered mental state 04/07/2018 - Lactic acidosis 04/07/2018 - SDH (subdural hematoma) ([facility]) 04/07/2018 - Coagulopathy ([facility]) 04/07/2018 - Encephalopathy 04/07/2018 - Obesity, Class II, BMI 35-39.9 04/07/2018 - LV dysfunction 05/20/2010 - Obesity 05/20/2010 - Implantable cardioverter-defibrillator (ICD) in situ 10/13/2009 Overview Note: ICD-Device g [employer] Model 1211-36Q Serial Number [id number] Implant Date 10/10/2009 Implanted By [employer]ZEEM Hong _ [employer] Model 7121Q Serial Number [id number] Implant Date 10/10/2009 PAST MEDICAL HISTORY Diagnosis Date - Allergic rhinitis, cause unspecified - CHF (congestive heart failure) (HCC) - Diabetes (HCC) type II, oral and injectable insulin - Essential hypertension, benign - Fibromyalgia - Hypothyroid - Non Hodgkin's lymphoma (HCC) - Obesity, unspecified - PMH - PAST MEDICAL HISTORY OF non hodgkins lymphoma, berkitts - Rheumatoid arthritis (HCC) - Sciatica PAST SURGICAL HISTORY Procedure Laterality Date - CATARACT EXTRACTION HX 09/2016 - DANDC, DIAG AND/OR THERAPEUTIC Dilation AND curettage - DEFIBRILLATOR SURGERY 10-10-2009 [facility] - EXTRACTION ERUPTED TOOTH/EXR wisdom teeth - LAMINECTOMY,THORACIC 2006 - LAP CHOLECYSTECT/CHOLANGIOGRAPHY 04-01-15 - PAST SURGICAL HISTORY OF Left 2003 heel spurs - PAST SURGICAL HISTORY OF 09/24/2013 heart catherization - THYROID FINE NEEDLE ASPIRATION 12/2015 Present Diet Order: Regular with Boost glucose Control TID Nutritional Intake: <75% estimated energy need over the past 10 day(s). Pt still appeared confused during visit and was drowsy. PO intake at meals has been 5-40% since visit on 04/13. Will continue with Boost Glucose Control and will try magic cups as well. Per RD initial assessment on 04/13, <50% estimated energy needs over the past 6 days. Pt had very poor PO intake 0-50% of meals. Admission Weight: 101.2 kg (223 lb 1.7 oz) Current Weight: 94.3 kg (207 lb 14.3 oz) Body mass index is 33.55 kg/m?. class 1 obesity Weight has decreased by 2.3 kg over the past 3 days representing 2.4% wt change. Suspecting weight change related to continued poor PO intake. 04/16/2018 94.3 kg +1 R lower extremity edema, +2 left lower extremity edema 04/15/2018 95.5 kg 04/14/2018 94.8 kg 04/13/2018 96.6 kg- +1 generalized edema 04/12/2018 98.6 kg 04/11/2018 102.2 kg 04/10/2018 105.8 kg 04/09/2018 102.5 kg 04/08/2018 106.3 kg - bed weight 04/07/2018 101.2 kg - bed weight - noting +1 generalized edema, +2 bilateral upper extremity edema, +3 lower extremity edema 03/08/2017 98.4 kg (217 lb) 11/10/2016 99.8 kg (220 lb) 01/01/2016 106.1 kg (234 lb) 09/02/2015 108.6 kg (239 lb 6.4 oz) 04/11/2015 109.8 kg (242 lb) 03/15/2015 113.9 kg (251 lb) 05/08/2014 116.1 kg (256 lb) 01/21/2014 101.3 kg (223 lb 6.4 oz) 12/26/2013 101.2 kg (223 lb) 08/31/2013 105.2 kg (232 lb) 06/08/2013 108.4 kg (239 lb) 05/04/2013 113.9 kg (251 lb) 03/28/2013 128.8 kg (284 lb) 06/12/2012 120.2 kg (265 lb) 05/16/2012 121.7 kg (268 lb 4.8 oz) 04/25/2012 118 kg (260 lb 3.2 oz) 07/14/2011 129.7 kg (286 lb) 03/03/2011 131.1 kg (289 lb) 07/27/2010 135.2 kg (298 lb) Temperature Max in 24 hours: Temp (24hrs), Av.1 ?C (98.7 ?F), Min:37 ?C (98.6 ?F), Max:37.1 ?C (98.8 ?F) BP 106/62 Pulse 91 Temp 37 ?C (98.6 ?F) (Oral) Resp 16 Ht 167.6 cm (5' 6) Wt 94.3 kg (207 lb 14.3 oz) LMP 06/06/2006 SpO2 98% BMI 33.55 kg/m? Recent Labs 04/17/18 0620 GLUC 109* BUN 5* CREAT 0.61 NA 139 K 3.1* CHLOR 101 CO2 30 HB 11.1* HCT 35.7 WBC 4.58 P 3.3 MG 1.5* Potential Signs of Inflammation: hyperglycemia ALLERGIES Allergen Reactions - Aleve [Naproxen Sod* Swelling - Amitriptyline Other: See Comments - Latex Rash - Sulfa (Sulfonamide * Rash - Tape [Adhesive Tape* Other: See Comments Adhesives on tape Current Facility-Administered Medications: potassium chloride 40 mEq oral powder (KLOR-CON) 40 mEq ORAL BID QUEtiapine 50 mg tablet (SEROquel) 50 mg ORAL AT BEDTIME melatonin 9 mg tab(s) 9 mg ORAL AT BEDTIME pill lens generator (patient-specific) 1 Each Miscell. (Med.Supl.;Non- Drugs) PRN simethicone, chewable 80 mg tab(s) (MYLICON) 80 mg ORAL QID PRN bisacodyl 10 mg suppository (DULCOLAX) 10 mg RECTAL DAILY PRN acetaminophen 325-650 mg tab(s) (TYLENOL) 325-650 mg ORAL q 6 H PRN atorvastatin 10 mg tab(s) (LIPITOR) 10 mg ORAL AT BEDTIME folic acid 1 mg tab(s) 1 mg ORAL BID levothyroxine 75 mcg tab(s) (SYNTHROID) 75 mcg ORAL BEFORE BREAKFAST DAILY dextrose 40 % 15 g 15 g ORAL PRN Or glucagon 1 mg injection (GLUCAGEN) 1 mg INTRAMUSCULAR PRN Or dextrose 50% in water 25 mL syringe 12.5 g INTRAVENOUS PRN carvedilol 3.125 mg tab(s) (COREG) 3.125 mg ORAL BID w MEALS digoxin 0.125 mg tab(s) (LANOXIN) 0.125 mg ORAL DAILY lamoTRIgine 200 mg tab(s) (LaMICtal) 200 mg ORAL AT BEDTIME Intake/Output 04/13/18 07 - 04/14/18 0659 04/14/18 07 - 04/15/18 0659 04/15/18 07 - 04/16/18 0659 04/16/18 07 - 04/17/18 0659 Intake (ml) 100 2110 500 560 Output (ml) 0 50 -- -- Net (ml) 100 2060 500 560 Pressure Injury 04/09/18 1045 Coccyx (Active) Stage Injury 1 04/16/2018 9:30 PM Litigation Specialist Related Pressure Injury No 04/16/2018 9:30 PM Dressing Status Intact 04/16/2018 9:30 PM Frequency of Dressing Change Every 3 Days 04/16/2018 9:30 PM Dressing Change Due 04/18/18 04/16/2018 9:30 PM Dressing/Treatment Type Foam-Adhesive 04/16/2018 9:30 PM Drainage Description None 04/16/2018 8:32 AM Drainage Amount None 04/16/2018 8:32 AM Odor No 04/16/2018 8:32 AM Wound Surface Color [place] 04/16/2018 8:32 AM Surrounding Skin Intact 04/16/2018 8:32 AM Number of days: 7 Surgical Incision 04/15/18 1224 Back - Middle (Active) Dressing Status Clean, Dry AND Intact 04/16/2018 8:32 AM Frequency of Dressing Change As Needed 04/16/2018 8:32 AM Dressing /Treatment Type Band Aid 04/16/2018 8:32 AM Drainage Description None 04/16/2018 8:32 AM Drainage Amount None 04/16/2018 8:32 AM Edges Intact 04/15/2018 12:24 PM Hematoma No 04/16/2018 8:32 AM Number of days: 1 MNT Billing Type: Re-assess/15 min 2 units SIGNATURE: Domi Arita RD PATIENT NAME: Ifeoma Ashraf DATE: April 17, 2018 TIME: 8:52 AM PAGER: [phone] CONSULT PROG Observed: 04/17/2018 Status: COMPLETED Source: [place] 8:42 AM CLINIC OTHER CAMPUS REPOSITORY [facility] ID: [id number] Author: Divina Srinivasan Service: Neurology Author Type: Nurse Practitioner Type: Consult Progress Note Filed: 04/17/2018 9:35 AM Note Text: NEUROLOGY CONSULT PROGRESS NOTE SERVICE DATE: 04/17/2018 SERVICE TIME: 829 Current Attending Provider: Maricruz Manrique Subjective Interval History: Patient in bed refuses to open eyes. Alert to name only. Follow most commands. Per RN pt was verbally abuse last night then went to sleep with no issues, pt has has similar episodes in the past. No issues this morning Objective Physical Examination: Neurological: ? Mental Status: drowsy refuses to open eye. She is oriented to person only. She does follow most commands. GENERAL: Awake/easily arousable NEUROLOGICAL: MENTAL STATUS: Alert, oriented to person, place and time, Follows commands and Speech fluent and appropriate CRANIAL NERVES: PERRLA, EOM's intact,Face symmetric, No facial droop or ptosis and No dysarthria MOTOR: No drift MOTOR STRENGTH: Upper and lower extremity 5/5 bilaterally REFLEXES: Not assessed SENSATION: Intact light touch COORDINATION:not tested d/t poor cooperation GAIT: Not assessed New Labs: WBC (thou/cmm) Date Value 04/17/2018 4.58 04/16/2018 5.90 04/15/2018 7.09 RBC (mil/cmm) Date Value 04/17/2018 3.44 04/16/2018 3.10 04/15/2018 3.27 Platelet Count (thou/cmm) Date Value 04/17/2018 169 04/16/2018 163 04/15/2018 192 BUN (mg/dL) Date Value 04/17/2018 5 04/16/2018 4 04/15/2018 5 Creatinine (mg/dL) Date Value 04/17/2018 0.61 04/16/2018 0.86 04/15/2018 0.66 CBC, Coags, BMP, Mg, Phos Recent Labs 04/17/18 0620 04/16/18 0845 04/15/18 0431 NA 139 140 140 K 3.1* 2.4* 2.8* CHLOR 101 101 103 CO2 30 32 27 GLUC 109* 95 133* CA 9.0 8.4* 8.3* MG 1.5* 1.2* -- P 3.3 -- -- DATA: Diagnostic tests reviewed for today's visit: Most recent labs and imaging results. Impression/Recommendations 1.) Encephalopathy-- Unclear etiology, likely multifactorial; SDH, electrolyte imbalance -LP/CSF Send out labs-pending -CSF cytology Pending -Lamictal level pending -ammonia WNL (29) -Unable to get MRI as device is MRI compatible however old device leads are not -UA neg 2.) electrolyte imbalance K=3.1, Mag 1.2-- managed per primary team 3.)SDH- non surgical -Keppra for 7days total -H/o DVT on Eliquis. Resumption per NSGY recs. 4.)h/o Non Hodgkins lymphoma Will follow up and make recommendations if needed labs when results are available. SIGNATURE: Divina Srinivasan APRN.CNP PATIENT NAME: Ifeoma Ashraf DATE: April 17, 2018 TIME: 8:42 AM PAGER/CONTACT #: [phone] HEMOGRAM Collected: 04/17/2018 Status: F Source: [facility] 6:20 AM [facility] SYSTEM REPOSITORY TYPE CODE TESTS RESULT OUT OF REFERENCE UNITS RANGE LAB WBC(LOINC) 3.98-10.04 thou/cmm WBC 4.58 LAB RBC(LOINC) 3.93-5.22 mil/cmm Low RBC 3.44 LAB HGB(LOINC) 11.2-15.7 g/dL Low Hgb 11.1 LAB HCT(LOINC) 34.1-44.9 % Hct 35.7 LAB MCV(LOINC) 79.4-94.8 fl High MCV 103.8 LAB MCH(LOINC) 25.6-32.2 pg High MCH 32.3 LAB MCHC(LOINC) 31.6-34.8 % Low MCHC 31.1 LAB RDW(LOINC) 11.7-14.4 % High RDW 23.5 LAB RDWSD(LOINC 36.4-46.3 fl ) High RDW SD 89.7 LAB PLT(LOINC) 182-369 thou/cmm Low Platelet 169 LAB MPV(LOINC) 9.4-12.3 fl MPV 10.5 Performed By: #### CBC1 #### [facility] [address] [place] [address] AMMONIA Collected: 04/17/2018 Status: F Source: [facility] 6:20 AM HEALTH SYSTEM REPOSITORY TYPE CODE TESTS RESULT OUT OF REFERENCE UNITS RANGE LAB MARIMAR(LOINC 11-32 umol/L ) Ammonia 29 Performed By: #### MARIMAR #### [place] [address] MAGNESIUM BLOOD Collected: 04/17/2018 Status: F Source: [facility] 6:20 AM [facility]ALTH SYSTEM REPOSITORY TYPE CODE TESTS RESULT OUT OF REFERENCE UNITS RANGE LAB MAG(LOINC) 1.6-2.6 mg/dL Low Magnesium Blood 1.5 Performed By: #### MAG #### [place] [address] PHOSPHORUS BLOOD Collected: 04/17/2018 Status: F Source: [facility] 6:20 AM HEALTH SYSTEM REPOSITORY TYPE CODE TESTS RESULT OUT OF REFERENCE UNITS RANGE LAB PHOS(LOINC 2.5-4.9 mg/dL ) Phosphorus Blood 3.3 Performed By: #### PHOS #### [place] [address] BASIC PANEL Collected: 04/17/2018 Status: F Source: [facility] 6:20 AM HEALTH SYSTEM REPOSITORY TYPE CODE TESTS RESULT OUT OF REFERENCE UNITS RANGE LAB NA(LOINC) 136-145 mEq/L Sodium Blood 139 LAB K(LOINC) 3.5-5.1 mEq/L Low Potassium Blood 3.1 LAB CL(LOINC) 98-107 mEq/L Chloride Blood 101 LAB CO2(LOINC) 21-32 mEq/L CO2 Blood 30 LAB GLU(LOINC) 70-99 mg/dL Glucose High Blood 109 LAB BUN(LOINC) 7-18 mg/dL Low BUN Blood 5 LAB CREA(LOINC 0.51-0.95 mg/dL ) Creatinine Blood 0.61 LAB CA(LOINC) 8.5-10.1 mg/dL Calcium Blood 9.0 LAB ANGAP(LOIN 8-16 C) Anion Gap 11 Performed By: #### P8 #### [facility] [address] [place] [address] CONSULT PROG Observed: 04/16/2018 Status: COMPLETED Source: [place] 12:05 PM CLINIC OTHER CAMPUS REPOSITORY HNO ID: [id number] Author: Robyn Chavez (Pa) Service: Neurology Author Type: Physician Matcher Operator Type: Consult Progress Note Filed: 04/16/2018 12:18 PM Note Text: NEUROLOGY CONSULT PROGRESS NOTE SERVICE DATE: 04/16/2018 SERVICE TIME: 12:06 PM Current Attending Provider: Maricruz Manrique Subjective Interval History: Today, Ifeoma is not changed. Remains very confused. Hallucinating, seeing things in the hallway. More drowsy today although had a rough night with confusion and hallucinations. Not getting much sleep. Per patient's mother, she was talking to her uncle whom she hasn't talked to in quite some time. Objective Physical Examination: Neurological: ? Mental Status: More drowsy today. Arousable. She is oriented to person only. She does follow commands. Cranial Nerves: CNII: Visual acuity normal, Visual rosario full to confrontation, No APD noted on exam CNIII, IV, : Pupils equal, round and reactive to light, full extraoccular movements without nystagmus CN V: Facial sensation intact bilaterally to fine touch CN VII: Facial muscles symmetric and strong, No noted facial droop CN VIII: Hearing intact to voice. CN IX: Gag Reflex Not Examined CN X: Palate elevates symmetrically CN XI: Full strength shoulder shrug bilaterally ? CN XII: Tongue protrusion full and midline Motor Exam: ? Muscle Tone: Normal ? Strength today in the bilateral extremities is not changed ? Reflexes: Not tested. ? Sensation: Intact to light touch. ? Coordination: Not tested. ? Gait: Patient is unable to ambulate. New Labs: WBC (thou/cmm) Date Value 04/16/2018 5.90 04/15/2018 7.09 04/14/2018 6.08 RBC (mil/cmm) Date Value 04/16/2018 3.10 04/15/2018 3.27 04/14/2018 3.28 Platelet Count (thou/cmm) Date Value 04/16/2018 163 04/15/2018 192 04/14/2018 166 BUN (mg/dL) Date Value 04/16/2018 4 04/15/2018 5 04/14/2018 4 Creatinine (mg/dL) Date Value 04/16/2018 0.86 04/15/2018 0.66 04/14/2018 0.63 CBC, Coags, BMP, Mg, Phos Recent Labs 04/16/18 0845 04/15/18 0431 04/14/18 1002 NA 140 140 141 K 2.4* 2.8* 3.2* CHLOR 101 103 104 CO2 32 27 30 GLUC 95 133* 105* CA 8.4* 8.3* 8.3* MG 1.2* -- -- DATA: Diagnostic tests reviewed for today's visit: Most recent labs and imaging results. LP: Component Value Range AND Units Status Performing Lab CSF Appearance Clear Final [facility] Color, CSF Colorless Final [facility] Xanthochromia No xantho Final [facility] Total Volume CSF 4.0 ml Final [facility] VIAL # 3 Final [facility] RBC, CSF 2 0 /cmm Final [facility] WBC, CSF 2 0 - 5 /cmm Final [facility] Seg, CSF see below % Final [facility] Comment: Protein CSF : 49 Glucose CSF: 66 Impression/Recommendations 1) encephalopathy - Unclear etiology, likely multifactorial; SDH, electrolyte imbalance - U/A negative -Ammonia mildly elevated. Regular BMs per nurse. Will check f/u level tomorrow. - Dig level WNL - Unable to get MRI as device is MRI compatible however old device leads are not - Hypokalemia likely d/t hypomagnesemia - replete both and monitor levels -Lamictal level pending - LP with minimal protein elevation. Send out tests still pending. - Will add additional CSF cytology to look for malignant cells given hx of lymphoma/bone marrow transplant. ? 2) SDH - Nonsurgical - Keppra for total of 7 days - NSGY following - H/o DVT on Eliquis. Resumption per NSGY recs. ?Spoke to patient's mother via phone and updated her on patient's condition. She is going to bring in patient's home medications for review per primary team request. SIGNATURE: Robyn Chavez PA-C PATIENT NAME: Ifeoma Ashraf DATE: April 16, 2018 TIME: 12:06 PM PAGER/CONTACT #: PROGRESS Observed: 04/16/2018 Status: COMPLETED Source: [place] 9:55 AM CLINIC OTHER CAMPUS REPOSITORY O ID: [id number] Author: Maricruz Manrique Service: Hospital Medicine Author Type: Physician Type: Progress Notes Filed: 04/16/2018 7:24 PM Note Text: INTERNAL MEDICINE PROGRESS NOTE SERVICE DATE: 04/16/2018 SERVICE TIME: 9:55 AM ADMITTING PHYSICIAN: Agapito Mckenna) Keshawn Subjective CHIEF COMPLAINT: f/u medical issues listed below Current Facility-Administered Medications: melatonin 9 mg tab(s) 9 mg ORAL AT BEDTIME pill lens generator (patient-specific) 1 Each Miscell. (Med.Supl.;Non- Drugs) PRN metOLAzone 2.5 mg tab(s) (ZAROXOLYN) 2.5 mg ORAL q 48 HR furosemide 10 mg injection (LASIX) 10 mg INTRAVENOUS DAILY simethicone, chewable 80 mg tab(s) (MYLICON) 80 mg ORAL QID PRN bisacodyl 10 mg suppository (DULCOLAX) 10 mg RECTAL DAILY PRN acetaminophen 325-650 mg tab(s) (TYLENOL) 325-650 mg ORAL q 6 H PRN atorvastatin 10 mg tab(s) (LIPITOR) 10 mg ORAL AT BEDTIME folic acid 1 mg tab(s) 1 mg ORAL BID levothyroxine 75 mcg tab(s) (SYNTHROID) 75 mcg ORAL BEFORE BREAKFAST DAILY dextrose 40 % 15 g 15 g ORAL PRN Or glucagon 1 mg injection (GLUCAGEN) 1 mg INTRAMUSCULAR PRN Or dextrose 50% in water 25 mL syringe 12.5 g INTRAVENOUS PRN carvedilol 3.125 mg tab(s) (COREG) 3.125 mg ORAL BID w MEALS digoxin 0.125 mg tab(s) (LANOXIN) 0.125 mg ORAL DAILY lamoTRIgine 200 mg tab(s) (LaMICtal) 200 mg ORAL AT BEDTIME INTERVAL HISTORY OF PRESENT ILLNESS: c/o watery stool, weak Objective PHYSICAL EXAM: Patient Vitals for the past 24 hrs: BP Temp Temp src Pulse Resp SpO2 Weight 04/16/18 0900 - - - - - - 94.3 kg (207 lb 14.3 oz) 04/16/18 0600 108/74 36.8 ?C (98.2 ?F) Oral 78 18 98 % - 04/15/18 1931 101/58 36.8 ?C (98.2 ?F) Oral 79 18 98 % - 04/15/18 1446 96/66 36.7 ?C (98.1 ?F) Oral 87 18 100 % - Body mass index is 33.55 kg/m?. GENERAL: Alert, no distress, cooperative SKIN: Skin color, texture, turgor normal. No rashes or lesions. LUNGS: Lungs clear to auscultation. Good diaphragmatic excursion. CARDIAC: Normal S1 and S2; no rubs, murmurs, or gallops ABDOMEN: Abdomen soft, non-tender, BS normal, No masses or organomegaly EXTREMITIES: Extremities normal, no deformities, edema, clubbing or skin discoloration. , No ulcers DATA: Diagnostic tests reviewed for today's visit: Significant findings were revd K 2.4 Assessment/Plan # c/o diarrhea, weak # hypokalemia PLAN: replace potassium Check magnesium level Stop diuretics Monitor # history of Non Hodgkins lymphoma # DMII # history of Chronic Systolic CHF 2/2 chemotherapy induced LV dysfunction, and is SP ICD implantation for primary prevention of sudden SIGNATURE: Maricruz Manrique DO PATIENT NAME: Ifeoma Ashraf DATE: April 16, 2018 TIME: 9:55 AM PAGER/CONTACT #: HEMOGRAM Collected: 04/16/2018 Status: F Source: [facility] 8:45 AM HEALTH SYSTEM REPOSITORY TYPE CODE TESTS RESULT OUT OF REFERENCE UNITS RANGE LAB WBC(LOINC) 3.98-10.04 thou/cmm WBC 5.90 LAB RBC(LOINC) 3.93-5.22 mil/cmm Low RBC 3.10 LAB HGB(LOINC) 11.2-15.7 g/dL Low Hgb 10.0 LAB HCT(LOINC) 34.1-44.9 % Low Hct 31.5 LAB MCV(LOINC) 79.4-94.8 fl High MCV 101.6 LAB MCH(LOINC) 25.6-32.2 pg High MCH 32.3 LAB MCHC(LOINC) 31.6-34.8 % MCHC 31.7 LAB RDW(LOINC) 11.7-14.4 % High RDW 23.0 LAB RDWSD(LOINC 36.4-46.3 fl ) High RDW SD 86.0 LAB PLT(LOINC) 182-369 thou/cmm Low Platelet 163 LAB MPV(LOINC) 9.4-12.3 fl MPV 10.4 Performed By: #### CBC1 #### [place] [address] BASIC PANEL Collected: 04/16/2018 Status: F Source: [facility] 8:45 AM HEALTH SYSTEM REPOSITORY TYPE CODE TESTS RESULT OUT OF REFERENCE UNITS RANGE LAB NA(LOINC) 136-145 mEq/L Sodium Blood 140 LAB CL(LOINC) 98-107 mEq/L Chloride Blood 101 LAB CO2(LOINC) 21-32 mEq/L CO2 Blood 32 LAB GLU(LOINC) 70-99 mg/dL Glucose Blood 95 LAB BUN(LOINC) 7-18 mg/dL Low BUN Blood 4 LAB CREA(LOINC 0.51-0.95 mg/dL ) Creatinine Blood 0.86 LAB CA(LOINC) 8.5-10.1 mg/dL Low Calcium Blood 8.4 LAB K(LOINC) 3.5-5.1 mEq/L Low alert Potassium Blood 2.4 Result Comment: RESULT RECHECKED LAB ANGAP(LOINC) 8-16 Anion Gap 9 Performed By: #### P8 #### [place] [address] MAGNESIUM BLOOD Collected: 04/16/2018 Status: F Source: [facility] 8:45 AM HEALTH SYSTEM REPOSITORY TYPE CODE TESTS RESULT OUT OF REFERENCE UNITS RANGE LAB MAG(LOINC) 1.6-2.6 mg/dL Low Magnesium Blood 1.2 Performed By: #### MAG #### [place] [address] NURSING PROG Observed: 04/16/2018 Status: COMPLETED Source: [place] 3:03 AM CLINIC OTHER CAMPUS REPOSITORY HNO ID: [id number] Author: Marzena (RnHenrik Mitchell RN Service: Nursing Author Type: Registered Nurse Type: Nursing Progress Note Filed: 04/16/2018 3:04 AM Note Text: Pt is calm but still talking to herself. Sound physician would like to be paged if pt gets agitated again. NURSING PROG Observed: 04/16/2018 Status: COMPLETED Source: [place] 1:00 AM [facility] REPOSITORY HNO ID: [id number] Author: Marzena MckeonRn) NAHUM Mtichell Service: Nursing Author Type: Registered Nurse Type: Nursing Progress Note Filed: 04/16/2018 3:03 AM Note Text: Pt is currently hallucinating states bugs are crawling on me and the floor Pt was hysterically crying. States I don' know whats wrong with me Then she started hitting her head with the palm Of her hands. Tried to calm patient down. But she got more agitated with people in the room. Got pt to stop hitting herself. Paged sound PROGRESS Observed: 04/15/2018 Status: COMPLETED Source: [place] 3:41 PM [facility] REPOSITORY HNO ID: [id number] Author: Lakisha Smith MD Service: Hospital Medicine Author Type: Physician Type: Progress Notes Filed: 04/15/2018 3:48 PM Note Text: DEPARTMENT OF HOSPITAL MEDICINE PROGRESS NOTE SERVICE DATE: 04/15/2018 SERVICE TIME: 3:41 PM Hospital Medicine/Primary Attending: Lakisha Smith MD NIGHT AND WEEKEND COVERAGE: After 7pm please page [phone] CHIEF COMPLAINT: f/u for altered sensorium SUBJECTIVE: Patient seen and examined Doing better and sensorium is improving. Mother at bedside and she feels that this is so No fever Just returned from LP OBJECTIVE: PHYSICAL EXAM: BP 96/66 Pulse 87 Temp (Src) 98.1 (Oral) Resp 18 Ht 5' 6 (1.68m) Wt 210 lb 8.6 oz (95.5kg) SpO2 100% LMP 06/06/2006 BMI 34.00 kg/(m2). General - AANDOx3, NAD, appears anxious and occasionally teraful CV - RRR S1 S2, No M/R/G RESP - CTA B/L No wheezes, ronchi, rales ABD - soft, NT, ND +BS EXT - no gross joint deformity, no clubbing, cyanosis, edema NEURO - CN II-XII grossly intact, no focal deficits MEDICATIONS: Current hospital medications: melatonin 9 mg tab(s) 9 mg ORAL AT BEDTIME potassium chloride ER 40 mEq tab(s) (K-DUR, KLOR-CON) 40 mEq ORAL QID pill lens generator (patient-specific) 1 Each Miscell. (Med.Supl.;Non- Drugs) PRN metOLAzone 2.5 mg tab(s) (ZAROXOLYN) 2.5 mg ORAL q 48 HR furosemide 10 mg injection (LASIX) 10 mg INTRAVENOUS DAILY simethicone, chewable 80 mg tab(s) (MYLICON) 80 mg ORAL QID PRN bisacodyl 10 mg suppository (DULCOLAX) 10 mg RECTAL DAILY PRN acetaminophen 325-650 mg tab(s) (TYLENOL) 325-650 mg ORAL q 6 H PRN atorvastatin 10 mg tab(s) (LIPITOR) 10 mg ORAL AT BEDTIME folic acid 1 mg tab(s) 1 mg ORAL BID levothyroxine 75 mcg tab(s) (SYNTHROID) 75 mcg ORAL BEFORE BREAKFAST DAILY dextrose 40 % 15 g 15 g ORAL PRN glucagon 1 mg injection (GLUCAGEN) 1 mg INTRAMUSCULAR PRN dextrose 50% in water 25 mL syringe 12.5 g INTRAVENOUS PRN carvedilol 3.125 mg tab(s) (COREG) 3.125 mg ORAL BID w MEALS digoxin 0.125 mg tab(s) (LANOXIN) 0.125 mg ORAL DAILY lamoTRIgine 200 mg tab(s) (LaMICtal) 200 mg ORAL AT BEDTIME DATA: Diagnostic tests reviewed for today's visit: CBC: Recent Labs 04/15/18430 WBC 7.09 RBC 3.27* HB 10.6* HCT 32.9* PLT 192 MCV 100.6* MCH 32.4* MPV 10.4 RDW 22.8* Coags: No results for input(s): INR, APTT in the last 24 hours. Invalid input(s): PT BMP: Recent Labs 04/15/18 043 NA 140 K 2.8* CHLOR 103 CO2 27 BUN 5* CREAT 0.66 GLUC 133* CMP: Recent Labs 04/15/18430 NA 140 K 2.8* CHLOR 103 CO2 27 BUN 5* CREAT 0.66 GLUC 133* CA 8.3* ANION 13 Cardiac Enzymes: No results for input(s): CK, MB, CKMB, TROPT in the last 24 hours. Liver Function, Amylase, Lipase: No results for input(s): TPROT, ALB, ALT, AST, ALKPHOS, TBILI, AMYLASE, LIPASE, LACTATE in the last 24 hours. MG/PHOS: No results for input(s): MG, P in the last 24 hours. Renal Panel: Recent Labs 04/15/18 0431 CREAT 0.66 BUN 5* GLUC 133* CA 8.3* CHLOR 103 K 2.8* CO2 27 NA 140 Heme: No results for input(s): RETICP, ABSRETIC, LD, RAISA, FE, TIBC, TRANSFERSAT in the last 24 hours. No results found for: UALBCR Assessment/Plan 1. Acute encephalopathy. Suspect this may be a viral encephalitis. Appears to be resolving. S/p EEG which was negative for any epileptic activity Check Lamictal levels 2. Dilated cardiomyopathy s/p ICD. Stable 3. Hypokalemia secondary to diuretic use. Will give potassium but will need to be maintained on potassium supplements 4. Morbid obesity Encourage ambulation VTE Prophylaxis: Lovenox 40mg Sub Q Daily Disposition: Home Plan of care discussed with: Patient, Family/Other: and RN SIGNATURE: Lakisha Smith MD PATIENT NAME: Ifeoma sAhraf DATE: April 15, 2018 TIME: 3:41 PM PAGER/CONTACT #: cc PROGRESS Observed: 04/15/2018 Status: COMPLETED Source: [place] 11:56 AM CLINIC OTHER CAMPUS REPOSITORY HNO ID: [id number] Author: Louie Crane Service: Radiology Author Type: Physician Type: Progress Notes Filed: 04/15/2018 11:57 AM Note Text: Radiology Status post LP under fluoroscopy without immediate complication Opening pressure: qualitatively well wnl Fluid: approximately 10-12 ml clear CSF to lab Louie Crane MD LUMBAR PUNCTURE Observed: 04/15/2018 Status: F Source: [facility] 11:45 AM HEALTH SYSTEM REPOSITORY Performed at [facility] APPROVED BY: Louie Crane MD LUMBAR PUNCTURE UNDER FLUOROSCOPIC GUIDANCE A lumbar puncture was performed under fluoroscopic guidance utilizing sterile technique and a 15 cm 20-gauge spinal needle without complication. The procedure was performed to evaluate altered mental status. Fluoroscopy Time: 0.2 minutes Dose Area Prod.: Not available Approximately 10-12 mL of clear cerebrospinal fluid was obtained for laboratory analysis. Qualitatively, the opening pressure was well within normal limits. IMPRESSION: Status post lumbar puncture under fluoroscopic guidance as described above. PROTEIN CSF Collected: 04/15/2018 Status: F Source: [facility] 11:30 HEALTH SYSTEM REPOSITORY TYPE CODE TESTS RESULT OUT OF REFERENCE UNITS RANGE LAB CSFPR(LOINC 15-45 mg/dL ) High Protein CSF 49 Performed By: #### CSFPR #### [place] [address] GLUCOSE,CSF Collected: 04/15/2018 Status: F Source: [facility] 11:[address] [place] [address] SYSTEM REPOSITORY TYPE CODE TESTS RESULT OUT OF RANGE REFERENCE UNITS LAB CSFGL(LOINC 60-70% of blood mg/dl ) sugar. 66 Glucose,CSF Performed By: #### CSFGL #### [place] [address] CSF CELL COUNT/DIFF Collected: 04/15/2018 Status: F Source: [facility] 11:[facility] REPOSITORY TYPE CODE TESTS RESULT OUT OF REFERENCE UNITS RANGE LAB CSFAP(BREN[place] NC) CSF Appearance Clear LAB CSFCO(BR[place] NC) CSF Color Colorless LAB XANTH(BR[place] NC) Xanthochromia No xantho LAB TOTAL(BRENNA ml NC) Total Volume CSF 4.0 LAB VIAL#(BRENNA NC) Vial# 3 LAB CSFRB(BRENNA 0 /cmm NC) CSF/RBC 2 LAB CSFWB(BRENNA 0-5 /cmm NC) CSF/WBC 2 LAB CSFSE(BRENNA % NC) CSF/Seg see below Result Comment: No differential required, nucleated cell count < 6. Performed By: #### CSFCD #### [place] [address] VDRL, CSF Collected: 04/15/2018 Status: F Source: [facility] 11:[address] [place] [address] SYSTEM REPOSITORY TYPE CODE TESTS RESULT OUT OF RANGE REFERENCE UNITS LAB VDRLX(LOINC ) VDRL, CSF SEE BELOW Result Comment: VDRL on CSF Non Reactive NR DILS Performing Laboratory: [facility] [address] [place] [address] Performed By: #### VDRLX #### [place] [address] ENTEROVIRUS PCR Collected: 04/15/2018 Status: F Source: [facility] 11:30 AM HEALTH SYSTEM REPOSITORY TYPE CODE TESTS RESULT OUT OF REFERENCE UNITS RANGE LAB ENTPX(LOIN C) Enterovirus PCR SEE BELOW Result Comment: Enterovirus PCR SEE BELOW Negative for Enterovirus by PCR. This test was developed and its performance characteristics determined [facility] [place] ([facility]). It has not been cleared or approved by the FDA. [facility] is regulated under CLIA as qualified to perform high-complexity testing. This test is used for clinical purposes. It should not be regarded as investigational or for research. Enterovirus PCR Srce SEE BELOW Cerebrospinal Fluid Performing Laboratory: [place] [address] Performed By: #### ENTPX #### [place] [address] HSV BY PCR, CSF Collected: 04/15/2018 Status: F Source: [facility] 11:30 [facility] SYSTEM REPOSITORY TYPE CODE TESTS RESULT OUT OF RANGE REFERENCE UNITS LAB HSDNX(LOINC ) HSV by SEE BELOW PCR, CSF Result Comment: HSV PCR Spec Source SEE BELOW Cerebrospinal Fluid HSV-1 SEE BELOW Negative for Herpes Simplex Virus Type 1 by PCR HSV-2 SEE BELOW Negative for Herpes Simplex Virus Type 2 by PCR Performing Laboratory: [facility] [address] [place] [address] Performed By: #### HSDNX #### [place] [address] [place] CSF,PCR Collected: 04/15/2018 Status: F Source: [facility] 11:30 [facility] SYSTEM REPOSITORY TYPE CODE TESTS RESULT OUT OF RANGE REFERENCE UNITS LAB WNPCQ(LOINC ) West Nile SEE BELOW CSF,PCR Result Comment: [place] VIRUS RNA, CSF SEE BELOW Not Detected Not Detected West Nile Virus (WNV), an RNA flavivirus, is spread by mosquitoes from mammal to mammal, and is the etiologic agent responsible for recent outbreaks of encephalitis in [place], [place] and [place]. The PCR test is the most sensitive assay for the virus, but should be used in conjunction with traditional WNV serology for clinical diagnosis. Test Performed by [facility], [facility], [address] [place], [place] Larry Ly M.D., Ph.D., Director of Laboratories , SHUKRI [id number] Performed By: #### WNPCQ #### [place] [address] CONSULT PROG Observed: 04/15/2018 Status: COMPLETED Source: [place] 10:27 AM CLINIC OTHER CAMPUS REPOSITORY HNO ID: [id number] Author: Robyn Engle) Ktahy Service: Neurology Author Type: Physician Matcher Operator Type: Consult Progress Note Filed: 04/15/2018 10:34 AM Note Text: NEUROLOGY CONSULT PROGRESS NOTE SERVICE DATE: 04/15/2018 SERVICE TIME: 10:27 AM Current Attending Provider: Lakisha Smith, * Subjective Interval History: Today, Ifeoma is not changed. Agitated overnight, wanting to see her mother. Pleasant for me this morning. Remains confused. Oriented to person only. Objective Physical Examination: Neurological: ? Mental Status: She is oriented to person. She does follow commands. Cranial Nerves: CNII: Visual acuity normal, Visual rosario full to confrontation, No APD noted on exam CNIII, IV, : Pupils equal, round and reactive to light, full extraoccular movements without nystagmus CN V: Facial sensation intact bilaterally to fine touch and pinprick CN VII: Facial muscles symmetric and strong, No noted facial droop CN VIII: Hears finger rub well bilaterally CN IX: Gag Reflex Not Examined CN X: Palate elevates symmetrically CN XI: Full strength shoulder shrug bilaterally ? CN XII: Tongue protrusion full and midline Motor Exam: ? Muscle Tone: Normal ? Strength today in the bilateral extremities is not changed ? Reflexes: Not tested. ? Sensation: Intact to light touch. ? Coordination: Not tested ? Gait: Patient is unable to ambulate. New Labs: WBC (thou/cmm) Date Value 04/15/2018 7.09 04/14/2018 6.08 04/13/2018 5.51 RBC (mil/cmm) Date Value 04/15/2018 3.27 04/14/2018 3.28 04/13/2018 3.16 Platelet Count (thou/cmm) Date Value 04/15/2018 192 04/14/2018 166 04/13/2018 167 BUN (mg/dL) Date Value 04/15/2018 5 04/14/2018 4 04/13/2018 5 Creatinine (mg/dL) Date Value 04/15/2018 0.66 04/14/2018 0.63 04/13/2018 0.67 CBC, Coags, BMP, Mg, Phos Recent Labs 04/15/18 0431 04/14/18 1002 04/13/18 0345 NA 140 141 140 K 2.8* 3.2* 3.1* CHLOR 103 104 102 CO2 27 30 32 GLUC 133* 105* 105* CA 8.3* 8.3* 8.4* DATA: Diagnostic tests reviewed for today's visit: Most recent labs and imaging results. Impression/Recommendations 1) Encephalopathy - Unclear etiology, likely multifactorial - Unable to get MRI as device is MRI compatible however old device leads are not - Ammonia level mildly elevated yesterday, regular BMs per nurse. - Dig level WNL - Hypokalemia -replete ppt - Will check LP to look for signs of inflammatory/paraneoplastic/infectious changes given history of lymphoma and bone marrow transplant. Discussed procedure and risks with both patient and mother at bedside. 2) SDH - Nonsurgical - Keppra ppx for total of 7 days - NSGY following -H/o DVT on Eliquis. Resumption post LP per NSGY recs. Will f/u LP results. SIGNATURE: Robyn Chavez PA-C PATIENT NAME: Ifeoma Ashraf DATE: April 15, 2018 TIME: 10:27 AM PAGER/CONTACT #: [email or web address] [id number] Collected: 04/15/2018 Status: F Source: [facility] 10:04 AM HEALTH SYSTEM REPOSITORY TYPE CODE TESTS RESULT OUT OF REFERENCE UNITS RANGE LAB B12(LOINC) 193-986 pg/mL High Vitamin B12 1455 Performed By: #### B12 #### [place] [address] THYROGLOBULIN AB Collected: 04/15/2018 Status: F Source: [facility] 10:04 HEALTH SYSTEM REPOSITORY TYPE CODE TESTS RESULT OUT OF REFERENCE UNITS RANGE LAB TGAB2(LOIN 0.0-60.0 IU/ml C) Thyroglobulin Ab 16.5 Performed By: #### TGAB2 #### [facility] [address] [place] [address] METHYLMALONIC ACID Collected: 04/15/2018 Status: F Source: [facility] 10:04 [facility] SYSTEM REPOSITORY TYPE CODE TESTS RESULT OUT OF REFERENCE UNITS RANGE LAB MMAX(LOINC ) Methylmalonic Acid SEE BELOW Result Comment: Methylmalonic Acid 318 79-376 nmol/L This test was developed and its performance characteristics determined by [facility] Pathology and Laboratory Medicine [place] ([facility]). It has not been cleared or approved by the FDA. [facility] is regulated under CLIA as qualified to perform high-complexity testing. This test is used for clinical purposes. It should not be regarded as investigational or for research. Performing Laboratory: [facility] [address] [place] [address] Performed By: #### MMAX #### [facility] [address] [place] [address] LAMOTRIGINE Collected: 04/15/2018 Status: F Source: [facility] 10:04 [facility] SYSTEM REPOSITORY TYPE CODE TESTS RESULT OUT OF REFERENCE UNITS RANGE LAB LAMOX(LOIN C) Lamotrigine SEE BELOW Result Comment: Lamotrigine 20.7 H 1-13 ug/mL This test was developed and its performance characteristics determined by [facility] Pathology and Laboratory Medicine [place] ([facility]). It has not been cleared or approved by the FDA. [facility] is regulated under CLIA as qualified to perform high-complexity testing. This test is used for clinical purposes. It should not be regarded as investigational or for research. Performing Laboratory: [facility] [address] [id number] Performed By: #### LAMOX #### [facility] [address] [place] [address] HEMOGRAM Collected: 04/15/2018 Status: F Source: [facility] 4:31 [facility] REPOSITORY TYPE CODE TESTS RESULT OUT OF REFERENCE UNITS RANGE LAB WBC(LOINC) 3.98-10.04 thou/cmm WBC 7.09 LAB RBC(LOINC) 3.93-5.22 mil/cmm Low RBC 3.27 LAB HGB(LOINC) 11.2-15.7 g/dL Low Hgb 10.6 LAB HCT(LOINC) 34.1-44.9 % Low Hct 32.9 LAB MCV(LOINC) 79.4-94.8 fl High MCV 100.6 LAB MCH(LOINC) 25.6-32.2 pg High MCH 32.4 LAB MCHC(LOINC) 31.6-34.8 % MCHC 32.2 LAB RDW(LOINC) 11.7-14.4 % High RDW 22.8 LAB RDWSD(LOINC 36.4-46.3 fl ) High RDW SD 84.2 LAB PLT(LOINC) 182-369 thou/cmm Platelet 192 LAB MPV(LOINC) 9.4-12.3 fl MPV 10.4 Performed By: #### CBC1 #### [place] [address] BASIC PANEL Collected: 04/15/2018 Status: F Source: [facility] 4:31 AM [facility] REPOSITORY TYPE CODE TESTS RESULT OUT OF REFERENCE UNITS RANGE LAB NA(LOINC) 136-145 mEq/L Sodium Blood 140 LAB K(LOINC) 3.5-5.1 mEq/L Low Potassium Blood 2.8 LAB CL(LOINC) 98-107 mEq/L Chloride Blood 103 LAB CO2(LOINC) 21-32 mEq/L CO2 Blood 27 LAB GLU(LOINC) 70-99 mg/dL Glucose High Blood 133 LAB BUN(LOINC) 7-18 mg/dL Low BUN Blood 5 LAB CREA(LOINC 0.51-0.95 mg/dL ) Creatinine Blood 0.66 LAB CA(LOINC) 8.5-10.1 mg/dL Low Calcium Blood 8.3 LAB ANGAP(LOIN 8-16 C) Anion Gap 13 Performed By: #### P8 #### [place] [address] CYTOLOGY, MEDICAL Observed: 04/15/2018 Status: F Source: [facility] 12:00 AM [facility] SYSTEM REPOSITORY Test performed at [place] [address] NAME: IFEOMA ASHRAF REQUESTING: LISETTE PARTIDA DIAGNOSIS CEREBROSPINAL FLUID - NEGATIVE FOR MALIGNANT CELLS, PAUCICELLULAR FLUID. NO EVIDENCE OF VIRAL CYTOPATHIC EFFECT OR FUNGAL ELEMENTS. SPECIMEN: A) CSF, CEREBROSPINAL FLUID Description: Materials Prepared & Examined: Volume: ......... 4 # of Cytocentrifuges: ..... 2 Clear: ............. Y # of Slides: ................. Other: ............. 2 COLORLESS Electronically Signed: 04/17/2018 Screened by: ANDREAS MONTGOMERY(ASCP) Signed Out by: MONIQUE DALEY M.D., PATHOLOGIST Printed on: April 17, 2018 Page 1 of 1 Performed By: #### CYTOM #### [place] [address] NURSING PROG Observed: 04/14/2018 Status: COMPLETED Source: [facility] 4:34 PM [facility] OTHER [facility] REPOSITORY HNO ID: [id number] Author: Poppy (Nahum) NAHUM Maher Service: Nursing Author Type: Registered Nurse Type: Nursing Progress Note Filed: 04/14/2018 4:37 PM Note Text: Nursing Progress Note Patient Name: Ifeoma Ashraf Patient Location: [place] [address]/[place] [address]* Daily Note: S/W Pt Mother Morro. She would like to know what is possibly causing the high ammonia level. She would like updates from the MD 04/15. #[phone]. Dr Garcia text page also. This note was completed by: Poppy Maher, NAHUM [facility] Observed: 04/14/2018 Status: COMPLETED Source: [facility] 1:12 PM [facility] OTHER [facility]AMP[facility] REPOSITORY HNO ID: [id number] Author: Grace Emerson (Rt) Service: Radiology Author Type: Jewelry Maker Type: Allied Health Filed: 04/14/2018 1:13 PM Note Text: NEW ICD DEVICE: implanted 11/10/2017 [employer] Single chamber--Model: CD 1357-40Q Serial #:[id number] Conditional for MRI ? Still using OLD leads from prev ICD: [employer] medical Model:7121Q Serial #: [id number] implanted 10/10/2009 THESE ARE NOT APPROVED FOR MRI ? Info from [employer]: SCANNED INTO RIS Najma Hawk CNP aware. CONSULT PROG Observed: 04/14/2018 Status: COMPLETED Source: [facility] 12:50 PM [facility] [place] REPOSITORY HNO ID: [id number] Author: Robyn Chavez (Pa) Service: Neurology Author Type: Physician Matcher Operator Type: Consult Progress Note Filed: 04/14/2018 1:01 PM Note Text: NEUROLOGY CONSULT PROGRESS NOTE SERVICE DATE: 04/14/2018 SERVICE TIME: 12:50 PM Current Attending Provider: Janusz Garcia Subjective Interval History: Today, Ifeoma is not changed. Alert and pleasant. Confused. Oriented x1 to person only. Objective Physical Examination: Neurological: ? Mental Status: She is oriented to person only. She does follow commands. Cranial Nerves: CNII: Visual acuity normal, Visual rosario full to confrontation, No APD noted on exam CNIII, IV, : Pupils equal, round and reactive to light, full extraoccular movements without nystagmus CN V: Facial sensation intact bilaterally to fine touch and pinprick CN VII: Facial muscles symmetric and strong, No noted facial droop CN VIII: Hearing intact to voice. CN IX: Gag Reflex Not Examined CN X: Palate elevates symmetrically CN XI: Full strength shoulder shrug bilaterally ? CN XII: Tongue protrusion full and midline Motor Exam: ? Muscle Tone: Normal ? Strength today in the bilateral extremities is not changed ? Sensation: Intact to light touch. ? Coordination: Finger-to- nose-finger intact bilaterally. ? Gait: Patient is unable to ambulate. New Labs: WBC (thou/cmm) Date Value 04/14/2018 6.08 04/13/2018 5.51 04/12/2018 6.19 RBC (mil/cmm) Date Value 04/14/2018 3.28 04/13/2018 3.16 04/12/2018 3.24 Platelet Count (thou/cmm) Date Value 04/14/2018 166 04/13/2018 167 04/12/2018 189 BUN (mg/dL) Date Value 04/14/2018 4 04/13/2018 5 04/12/2018 6 Creatinine (mg/dL) Date Value 04/14/2018 0.63 04/13/2018 0.67 04/12/2018 0.68 CBC, Coags, BMP, Mg, Phos Recent Labs 04/14/18 1002 04/13/18 0345 04/12/18 0230 INR -- -- 1.47 NA 141 140 139 K 3.2* 3.1* 2.9* CHLOR 104 102 99 CO2 30 32 32 GLUC 105* 105* 107* CA 8.3* 8.4* 8.2* DATA: Diagnostic tests reviewed for today's visit: Most recent labs and imaging results. Impression/Recommendations 1) encephalopathy - Unclear etiology, likely multifactorial - U/A negative -Ammonia mildly elevated. Lactulose - Dig level WNL - Check MRI Brain w/wo contrast as device is compatible with MRI. 2) SDH - Nonsurgical - Keppra for total of 7 days - NSGY following - H/o DVT on Eliquis. Resumption per NSGY recs. Will follow MRI w/wo contrast peripherally. SIGNATURE: Robyn Chavez PA-C PATIENT NAME: Ifeoma Ashraf DATE: April 14, 2018 TIME: 12:50 PM PAGER/CONTACT #: CT HEAD W/O CONTRAST Observed: 04/14/2018 Status: F Source: [facility] 12:35 PM HEALTH SYSTEM REPOSITORY Performed at [facility] APPROVED BY: Louie Crane MD BRAIN CT WITHOUT CONTRAST ENHANCEMENT Serial transverse images of the brain were obtained without contrast material. The study was performed beyond 24 hours of arrival to evaluate altered mental status manifested by confusion. CT Dose-Length Product (DLP): 828 mGy*cm CT Dose Reduction Employed: No dose reduction techniques were required Serial images redemonstrate the presence of a right-sided supratentorial subdural hematoma. A subacute/chronic component along the cerebral convexity demonstrates a maximal thickness of approximately 5 mm. And acute component within the posterior portion of the interhemispheric fissure, extending along the tentorium, demonstrates a maximal thickness of approximately 3-4 mm. Mass effect remains limited to partial effacement of sulci and shift of midline structures from the right to the left by several millimeters. Generalized prominence of cortical subarachnoid spaces, cer ebellar folia, basal cisterns is again noted in conjunction with mild ventricular dilatation. IMPRESSION: No significant interval change when compared with the previous study from 04/10/18 as described above. A relatively small right- sided supratentorial subdural hematoma with both subacute/chr onic and acute components is again noted with mild associated mass effect. PROGRESS Observed: 04/14/2018 Status: COMPLETED Source: [facility] 11:15 AM [facility] OTHER [facility]AMPUS REPOSITORY HNO ID: [id number] Author: Janusz Garcia Service: Hospital Medicine Author Type: Physician Type: Progress Notes Filed: 04/14/2018 5:58 PM Note Text: INPATIENT PROGRESS NOTE CHIEF COMPLAINT: AMS INTERVAL HPI: Pt more awake alert now but still very confused. PHYSICAL EXAM: BP 114/77 Pulse 99 Temp (Src) 98.6 (Oral) Resp 18 Ht 5' 6 (1.68m) Wt 208 lb 15.9 oz (94.8kg) SpO2 95% LMP 06/06/2006 BMI 33.75 kg/(m2). GENERAL: Alert, no distress, cooperative LUNGS: Lungs clear to auscultation, Good diaphragmatic excursion CARDIAC: Normal S1 and S2; no rubs, murmurs, or gallops ABDOMEN: Abdomen soft, non-tender, BS normal, No masses or organomegaly EXTREMITIES no edema NEURO: Sensation grossly intact, Cranial nerves II-XII intact, MSK 5/5 All ext DATA: Diagnostic tests reviewed for today's visit: CBC, Coags, BMP, Mg, Phos Recent Labs 04/14/18 1002 04/13/18 0345 04/12/18 0230 WBC 6.08 5.51 6.19 HB 10.5* 10.2* 10.4* HCT 34.1 32.1* 32.4* PLT 166* 167* 189 INR -- -- 1.47 NA 141 140 139 K 3.2* 3.1* 2.9* CHLOR 104 102 99 CO2 30 32 32 BUN 4* 5* 6* CREAT 0.63 0.67 0.68 GLUC 105* 105* 107* CA 8.3* 8.4* 8.2* UA neg. Ammonia 42 Assessment/Plan # acute encephalopathy- unclear etio. .???Seems still confused. Rpt UA neg. No signs of infection. More alert today. MRI cannot be done 2/[address] head. Will d/w neuro =# UTI- . DC rocephin.cx neg # Small SDh- non surgical. On keppra for Sx prophylaxis. finihsed today. # chronic systolic/diastolic HF- CHF measures. Cardiology following. On lasix and metoloazone # h/o DVT- eliquis on hold. ? When to restart will d/w neuro surgeyr # hypokalemia- replace. # mild hyperammonemia doubt contributing to her confusion. Pt having regular BM per RN SIGNATURE: Janusz Garcia MD PATIENT NAME: Ifeoma Ashraf DATE: April 14, 2018 TIME: 11:16 AM PAGER: Updated mother Morro. CASE MANAGEM Observed: 04/14/2018 Status: COMPLETED Source: [facility] 10:31 AM [facility] OTHER [facility]AMPUS REPOSITORY HNO ID: [id number] Author: Francy (Rn) NAHUM Kaur Service: Care Management Author Type: Registered Nurse Type: Care Mgt Progress Note Filed: 04/14/2018 10:34 AM Note Text: CARE MANAGEMENT PROGRESS NOTE SERVICE DATE: 04/14/2018 SERVICE TIME: 10:32 AM LOS: 7 days [facility] is full, TC to pts mother who gave ths CM a list [address] [facility], 2nd [facility], 3rd [facility] and 4th [facility]. . SIGNATURE: Francy Kaur RN PATIENT NAME: Ifeoma Ashraf DATE: April 14, 2018 TIME: 10:31 AM PAGER/CONTACT #: [id number] URINALYSIS, REFLEX Collected: 04/14/2018 Status: F Source: [facility] 10:02 AM HEALTH SYSTEM REPOSITORY TYPE CODE TESTS RESULT OUT OF RANGE REFERENCE UNITS LAB COLOR(LOIN C) Urine Color DK YELLOW LAB APPUR(LOIN C) Urine Appearance CLEAR LAB GLUUR(LOIN Negative mg/dL C) Glucose Urine NEGATIVE LAB KETON(LOIN Negative mg/dL C) Ketone Urine NEGATIVE LAB HGBUR(LOIN Negative C) Hemoglobin,Urin NEGATIVE e LAB PROTU(LOIN Negative mg/dL C) Protein Urine NEGATIVE LAB NITR(LOINC Negative ) Nitrite reflex NEGATIVE LAB BILIU(LOIN Negative C) Abnormal Bilirubin Urine see below Result Comment: Detected (Unable to confirm). LAB SPG(LOINC) 1.005-1.030 Specific 1.014 [place]app[place], Ur LAB PHUR(LOINC) 5.0-8.0 pH,Urine 8.0 LAB UROBI(LOINC) 0.0-1.0 EU/dL High Urobilinogen,Ur >=8.0 LAB LEUKR(LOINC) Negative Leukocyte NEGATIVE esterase LAB RBCU1(LOINC) 0.0-5.0 /hpf RBC,Urine 1.5 LAB WBCR(LOINC) 0.00-5.00 /hpf WBC, reflex 0.80 LAB EPIT1(LOINC) 0.0-5.0 /hpf Ep Cells Urine 0.8 LAB BACT1(LOINC) None Bacteria Urine NONE LAB HYCA1(LOINC) 0.0-1.0 /lpf Hyaline Cast 0.0 LAB REFLX(LOINC) Reflex Comment see below Result Comment: Reflex to culture is not indicated based on established laboratory criteria. Performed By: #### URIN #### [facility] [address] [place] [address] HEMOGRAM Collected: 04/14/2018 Status: F Source: [facility] 10:02 HEALTH SYSTEM REPOSITORY TYPE CODE TESTS RESULT OUT OF REFERENCE UNITS RANGE LAB WBC(LOINC) 3.98-10.04 thou/cmm WBC 6.08 LAB RBC(LOINC) 3.93-5.22 mil/cmm Low RBC 3.28 LAB HGB(LOINC) 11.2-15.7 g/dL Low Hgb 10.5 LAB HCT(LOINC) 34.1-44.9 % Hct 34.1 LAB MCV(LOINC) 79.4-94.8 fl High MCV 104.0 LAB MCH(LOINC) 25.6-32.2 pg MCH 32.0 LAB MCHC(LOINC) 31.6-34.8 % Low MCHC 30.8 LAB RDW(LOINC) 11.7-14.4 % High RDW 23.3 LAB RDWSD(LOINC 36.4-46.3 fl ) High RDW SD 88.3 LAB PLT(LOINC) 182-369 thou/cmm Low Platelet 166 LAB MPV(LOINC) 9.4-12.3 fl MPV 10.7 Performed By: #### CBC1 #### [place] [address] BASIC PANEL Collected: 04/14/2018 Status: F Source: [facility] 10:02 HEALTH SYSTEM REPOSITORY TYPE CODE TESTS RESULT OUT OF REFERENCE UNITS RANGE LAB NA(LOINC) 136-145 mEq/L Sodium Blood 141 LAB K(LOINC) 3.5-5.1 mEq/L Low Potassium Blood 3.2 LAB CL(LOINC) 98-107 mEq/L Chloride Blood 104 LAB CO2(LOINC) 21-32 mEq/L CO2 Blood 30 LAB GLU(LOINC) 70-99 mg/dL Glucose High Blood 105 LAB BUN(LOINC) 7-18 mg/dL Low BUN Blood 4 LAB CREA(LOINC 0.51-0.95 mg/dL ) Creatinine Blood 0.63 LAB CA(LOINC) 8.5-10.1 mg/dL Low Calcium Blood 8.3 LAB ANGAP(LOIN 8-16 C) Anion Gap 10 Performed By: #### P8 #### [facility] [address] [place] [address] AMMONIA Collected: 04/14/2018 Status: F Source: [facility] 10:02 HEALTH SYSTEM REPOSITORY TYPE CODE TESTS RESULT OUT OF REFERENCE UNITS RANGE LAB MARIMAR(LOINC 11-32 umol/L ) High alert Ammonia 42 Performed By: #### MARIMAR #### [facility] [address] [place] [address] DIGOXIN,RANDOM Collected: 04/14/2018 Status: F Source: [facility] 10:02 AM HEALTH SYSTEM REPOSITORY TYPE CODE TESTS RESULT OUT OF RANGE REFERENCE UNITS LAB DIGOR(LOINC 0.80-2.00 ng/ml ) 0.87 Digoxin,[place] om Performed By: #### DIGOR #### [facility] [address] [place] [id number] NURSING PROG Observed: 04/14/2018 Status: COMPLETED Source: [facility] 7:27 AM [facility] REPOSITORY HNO ID: [id number] Author: Arleth Sharpe) Didier Service: Nursing Author Type: Registered Nurse Type: Nursing Progress Note Filed: 04/14/2018 7:28 AM Note Text: Nursing Progress Note Patient Name: Ifeoma Ashraf Patient Location: [place] [address]/[place] [address]* Daily Note: Patient refusing morning labs, blood sugar checks, and AM vitals. This note was completed by: Arleth Velásquez RN PROGRESS Observed: 04/14/2018 Status: COMPLETED Source: [facility] 2:55 AM [facility] REPOSITORY HNO ID: [id number] Author: Arleth Sharpe) Didier Service: Nursing Author Type: Registered Nurse Type: Progress Notes Filed: 04/14/2018 2:56 AM Note Text: Unable to obtain straight cath specimen. Patient refusing to cooperate. ALLIED HEALTH Observed: 04/13/2018 Status: COMPLETED Source: [facility] 3:19 PM [facility] REPOSITORY HNO ID: [id number] Author: Antonella MckeonRt) Grace Moore Service: Radiology Author Type: Jewelry Maker Type: Allied Health Filed: 04/13/2018 3:25 PM Note Text: NEW ICD DEVICE: implanted 11/10/2017 [employer] Single chamber--Model: CD 1357-40Q Serial #:[id number] Conditional for MRI Still using OLD leads from prev ICD: [employer] medical Model:7121Q Serial #: [id number] implanted 10/10/2009 THESE ARE NOT APPROVED FOR MRI Info from [employer]: SCANNED INTO RIS THERAPY NT Observed: 04/13/2018 Status: COMPLETED Source: [facility] 2:28 PM CLINIC OTHER CAMPUS REPOSITORY HNO ID: [id number] Author: Tara Ching/Leela Hurley Service: Occupational Therapy Author Type: Occupational Therapist Type: Therapy (PT/OT/Speech/Resp) Filed: 04/13/2018 2:33 PM Note Text: Occupational Therapy Evaluation SERVICE DATE: 04/13/2018 SERVICE TIME: 1330 to 1405 ROOM: [place] [address] Recommended Discharge Disposition: Subacute/SNF Justification For Post Acute Needs: Anticipate that patient will require daily (5x/wk) skilled therapy in a post-acute facility setting at the time of acute hospital discharge;Motivated;Medically complex;Good sitting tolerance;Good family support Anticipated Discharge Needs: Physical Assist at Home Physical Assist at Home for: Transfers;Ambulation;Stairs;Safety;Self Care OT Recommendations to Nursing: Encourage patient participation with in-bed ADL?s;Utilize bed in Chair Position OT 6 Clicks Score: 14 Precautions/Activity Restrictions: Fall Risk;Bed/Chair Alarm Precaution/Activity Restriction Comments: IV, tele Isolation Type: None ASSESSMENT: OT Evaluation Moderate Complexity: Occupational Profile - Extended review of patient's medical record completed including patient's physical, cognitive, and psycho-social history (please see current hospital course of evaluation). Occupational Performance - Pt presents with deficits in feeding, grooming, UE bathing/dressing, LE bathing/dressing, functional transfers, functional mobility, decreased safety awareness, decreased insight into deficits Complexity in Clinical Decision Making - The extent of clinical reasoning was moderate, several treatment options present for the patient, need for modification during the evaluation was minimal/moderate, comorbidities affecting occupational performance: SDH, CHF defib.,encephalopathy Patient Disposition at Start of Session: Supine in Bed Patient Disposition at End of Session: Supine in Bed (HOB elevated) Tolerance Limited By Physiologic Response (weakness) Occupational Therapy Problem List: Cognitive Deficit;Education Deficit;Safety Deficits;Impaired Self Care;Decreased Activity Tolerance;Decreased Strength;Functional Mobility Impairment;Balance Impaired;Motor Planning Difficulties;Impaired Fine Motor Skills Patient /Caregiver Goals: Go To Rehab Goals for Plan of Care: Feeding with: Set Up Grooming with: Set Up Upper Body Dressing with: Contact Guard Assistance Toilet Transfer with: Moderate Assistance Demonstrate Positive Coping Strategies with: Minimal Assistance Increased Awareness of Cognitive Impairments as Related to ADL's/IADL's: Verbalized;Demonstrated Progress Toward Goals: Progressing slower than expected Due To: weakness, cognitive changes Rehab Potential: Good PLAN: Treatment Frequency (times per week): 3 (1-3) Current admission Treatment Interventions: Education;Self Care / Home Management;Energy Conservation Training;Functional Mobility Training;Cognitive Training Plan of Care developed with: Patient;Family TREATMENT INTERVENTIONS: Therapy Diagnosis: Reduced mobility-other;Decreased activities of daily living (ADL);Muscle Weakness (generalized);Abnormalities of gait and mobility-other;General symptoms and signs-other;Lack of coordination-other;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;Signs and Symptoms Involving Cognitive Functions and Awareness Interventions Provided: Evaluation;Cognitive Training (18970 or G0515) $ Evaluation-Moderate (45601) Billed Units: 1 unit Cognitive Training (G0515) Treatment Minutes (2018 Only): 15 $ Cognitive Training (G0515) Billed Units (2018 Only): 1 unit Skilled Intervention(s) Patient completed mini-cog and and re orientation/memory compensation tasks with good motivation/participation and followed 1-2 step instruction :Patient was educated in external memory compensation strategies Patient was educated on potential lifestyle and behavioral factors on cognitive reserve and/or decline Patient was educated on the impact of physical activity on cognitive maintenance Patient's family/caregivers were educated on compensatory strategies for memory, problem solving, reasoning deficits Total Timed Code Treatment Minutes: 15 FUNCTIONAL G CODE: OT 6 Clicks Score: 14 (04/13/18 1400) Self Care Current Status (G8987): CK (04/13/18 1400) Self Care Goal Status (G8988): CK (04/13/18 1400) Based on clinical assessment and the score on the 6 Clicks Functional Assessment Tool, the G code and corresponding severity modifiers are documented above. SUBJECTIVE: Current Hospital Course: Chart reviewed; 53 year old female with PMH of NHL s/p stem cell transplant, chronic HFrEF with AICD, DM2, DVT of left axiallry and brachial veins on Apixaban, s/p mechanical fall with subdural hematoma presented with: Encephalopathy x 2 weeks, stable subdural hematoma/hydrocephalus vs sepsis ?UTI (50 to 100K) Lactic acidosis, stable blood pressure, unclear etiology. ?Metformin PAST MEDICAL HISTORY Diagnosis Date - Allergic rhinitis, cause unspecified - CHF (congestive heart failure) (HCC) - Diabetes (HCC) type II, oral and injectable insulin - Essential hypertension, benign - Fibromyalgia - Hypothyroid - Non Hodgkin's lymphoma (HCC) - Obesity, unspecified - PMH - PAST MEDICAL HISTORY OF non hodgkins lymphoma, berkitts - Rheumatoid arthritis (HCC) - Sciatica PAST SURGICAL HISTORY Procedure Laterality Date - CATARACT EXTRACTION HX 09/2016 - DANDC, DIAG AND/OR THERAPEUTIC Dilation AND curettage - DEFIBRILLATOR SURGERY 10-10-2009 [facility] - EXTRACTION ERUPTED TOOTH/EXR wisdom teeth - LAMINECTOMY,THORACIC 2006 - LAP CHOLECYSTECT/CHOLANGIOGRAPHY 04-01-15 - PAST SURGICAL HISTORY OF Left 2002 heel spurs - PAST SURGICAL HISTORY OF 09/24/2013 heart catherization - THYROID FINE NEEDLE ASPIRATION 12/2015 Reason for Occupational Therapy Consult: encephalopathy falls Relevant Past Medical History: sepsis, chornic SDH,CHF Patient Report: No c/o pain followed instruction without agitation Home Environment Patient Lives With: Family (has been at SNF for ~2 weeks) Assistance Available: 24 Hour Entry To Home: Stairs;Without Rail (they have a non-wheeled walker placed against house to use ) Number Of Stairs Into Home: 2 Number Of Stairs To Bed/Bath: 0 Equipment Owned: Wheeled Walker;Standard Walker;Rollator;Shower Chair Prior Functional Level: Within Functional Limits (ambulated w/rollator infrequently) OBJECTIVE: Communication Deficits: Expressive Deficits Orientation Deficits: Confused;Not oriented to Place;Not oriented to Time (verbal cue to state correct year) Responsiveness: Alert;Awake (cooperative, non agitated) Follows Commands: 1-step Commands Memory Deficits: Short Term;Lisw (difficulty with recall) Executive Function Deficits: Sequencing;Problem Solving;Safety Awareness Sequencing Deficit: Moderate impairment Safety Awareness Deficit: Maximum impairment Problem Solving Deficit: Maximum impairment Mini Cog Score: 0 (04/13/18 1400) Psychosocial Deficit: combative at prior facility due to metabolic issues/sepsis CURRENT FUNCTIONAL STATUS: Current Activities of Daily Living Assist Level Feeding Minimal Assistance Grooming Minimal Assistance Bathing Upper Body Moderate Assistance Bathing Lower Body Maximal Assistance Dressing Upper Body Moderate Assistance Dressing Lower Body Maximal Assistance Toileting Maximal Assistance Functional Mobility Assist Level Rolling Maximal Assistance Supine to Sit Sit to Supine Scooting Sit to Stand Stand to Sit Bed to Chair Toilet/Commode Total Assistance (BPD) Functional Mobility Hand Dominance: Right Range Of Motion: (grossly intact reach) Strength: (weakness all axtremities) Activity Tolerance: Sitting Activity Sitting Activity: HOB elevated completed m and 15 sec mobility testni cog Sitting Activity Tolerance (in minutes): 15 Standing Activity Tolerance (in minutes): 10 Functional Performance Test Functional PerformanceTest: (followed instruction/completed 15 sec mobility test) Please see discipline specific clinical documentation flowsheet for complete details for this therapy evaluation/treatment. SIGNATURE: Tara Hurley OTR/L PATIENT NAME: Ifeoma Ashraf DATE: April 13, 2018 TIME: 2:28 PM CONSULT PROG Observed: 04/13/2018 Status: COMPLETED Source: [facility] 12:57 PM CLINIC OTHER CAMPUS REPOSITORY HNO ID: [id number] Author: Najma Hawk Service: Neurology Author Type: Nurse Practitioner Type: Consult Progress Note Filed: 04/13/2018 12:58 PM Note Text: 2 weeks of progressive encephalopathy prior to admit. No acute intracranial findings, no seizures but she remains encephalopathic. Will attempt MRI B with contrast. PROGRESS Observed: 04/13/2018 Status: COMPLETED Source: [facility] 12:41 PM CLINIC OTHER CAMPUS REPOSITORY HNO ID: [id number] Author: Janusz Garcia Service: Hospital Medicine Author Type: Physician Type: Progress Notes Filed: 04/13/2018 4:14 PM Note Text: INPATIENT PROGRESS NOTE CHIEF COMPLAINT: AMS INTERVAL HPI: Pt sleeping. Seems more drowsy today. Not oriented. Denies any complaints. D/w RN. No events overnight but remains lethargic with poor PO intake PHYSICAL EXAM: BP 101/60 Pulse 84 Temp (Src) 97.9 (Oral) Resp 18 Ht 5' 6 (1.68m) Wt 212 lb 15.4 oz (96.6kg) SpO2 98% LMP 06/06/2006 BMI 34.39 kg/(m2). GENERAL: Alert, no distress, cooperative LUNGS: Lungs clear to auscultation anteriorly CARDIAC: Normal S1 and S2; no rubs, murmurs, or gallops ABDOMEN: Abdomen soft, non-tender, BS normal, No masses or organomegaly EXTREMITIES:trace edema beatriz LE DATA: Diagnostic tests reviewed for today's visit: CBC, Coags, BMP, Mg, Phos Recent Labs 04/13/18 0345 04/12/18 0230 04/11/18 0639 WBC 5.51 6.19 7.00 HB 10.2* 10.4* 10.6* HCT 32.1* 32.4* 33.4* PLT 167* 189 164* INR -- 1.47 1.56 NA 140 139 136 K 3.1* 2.9* 3.2* CHLOR 102 99 97* CO2 32 32 32 BUN 5* 6* 7 CREAT 0.67 0.68 0.70 GLUC 105* 107* 97 CA 8.4* 8.2* 8.7 Assessment/Plan # acute encephalopathy- ?baseline. Seems still confused. Will rpt UA. ? 2/2 keppra.will d/w neuro =# UTI- on ceftriaxone. Urine cx neg. DC ABX. Received IV ABX for 5 days # Small SDh- non surgical. Sz PPX for 1 week, finihses on 04/14. ? Change to PO # chronic systolic/diastolic HF- CHF measures. Cardiology following. On lasix and metoloazone # h/o DVT- eliquis on hold. ? When to restart will d/w neurology # hypokalemia- replace. ? Plan for SNF at [place] SIGNATURE: Janusz Garcia MD PATIENT NAME: Ifeoma Ashraf DATE: April 13, 2018 TIME: 12:41 PM PAGER: D/w pt's mom( Morro [phone]) and Pt' friend bed side. Pe them pt had no memory issues prior to admission. p more awake alert now with family present but still confused. 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 ordeed for MRI tonie but pt cannot have an MRI 2/2 old pacemaker leads . ? Rpt CT head. f/u [facility] Observed: 04/13/2018 Status: COMPLETED Source: [facility] 12:40 PM [facility] OTHER CAMPUS REPOSITORY HNO ID: [id number] Author: Radha (Rn) NAHUM Garcia Service: Nursing Author Type: Registered Nurse Type: Allied Health Filed: 04/13/2018 1:19 PM Note Text: [facility] NURSE PROGRESS NOTE SERVICE DATE: 04/13/2018 SERVICE TIME: 1:17 PM REFERRED BY: F/U VISIT WITH: Patient and Family Member REASON FOR VISIT: Coping issues, Length of stay, New diagnosis and Serious illness/trauma CONDITION: medical. INTERVENTIONS: Emotional support, Prayer with patient, Therapeutic listening and prayer blanket. TIME SPENT (minutes): 20 Patient, mother and friend receptive to visit. Talked about past medical history and family. Thanked me for prayers and prayer blanket. SIGNATURE: Radha Garcia RN PATIENT NAME: Ifeoma Ashraf DATE: April 13, 2018 TIME: 1:17 PM THERAPY NT Observed: 04/13/2018 Status: COMPLETED Source: [facility] 12:04 PM [facility] REPOSITORY HNO ID: [id number] Author: Tara (Otr/L) Mei Service: Occupational Therapy Author Type: Occupational Therapist Type: Therapy (PT/OT/Speech/Resp) Filed: 04/13/2018 12:48 PM Note Text: OCCUPATIONAL THERAPY MISSED VISIT SERVICE DATE: 04/13/2018 SERVICE TIME: 1058 to 1100 ROOM: [place] [address] Attempted Evaluation. Patient not seen due to Sleeping. SIGNATURE: Tara Hurley OTR/L PATIENT NAME: Ifeoma Ashraf DATE: April 13, 2018 TIME: 12:47 PM CASE MANAGEM Observed: 04/13/2018 Status: COMPLETED Source: [facility] 11:03 AM [facility] REPOSITORY HNO ID: [id number] Author: Francy Kaur RN Service: Care Management Author Type: Registered Nurse Type: Care Mgt Progress Note Filed: 04/13/2018 11:04 AM Note Text: CARE MANAGEMENT PROGRESS NOTE SERVICE DATE: 04/13/2018 SERVICE TIME: 11:03 AM LOS: 6 days PT recs SNF, familys next choice is [facility], sent referral, will follow for acceptance. . SIGNATURE: Francy Kaur RN PATIENT NAME: Ifeoma Ashraf DATE: April 13, 2018 TIME: 11:03 AM PAGER/CONTACT #: [phone] NUTRITION Observed: 04/13/2018 Status: COMPLETED Source: [facility] 10:30 AM [facility] REPOSITORY HNO ID: [id number] Author: Domi Arita Service: Nutrition Therapy Author Type: Registered Dietitian Type: Nutrition Filed: 04/13/2018 1:58 PM Note Text: NUTRITION THERAPY INITIAL ASSESSMENT SERVICE DATE: 04/13/2018 SERVICE TIME: 10:30 RECOMMENDED MALNUTRITION DIAGNOSIS: MILD PROTEIN-CALORIE MALNUTRITION In the context of Acute Illness or Injury based on: Insufficient Energy Intake: less than or equal to 50% for greater than or equal to 5 days NUTRITION CARE PLAN: Problem, Etiology and Signs/Symptoms: Suboptimal oral intake related to altered mental status/confusion as evidenced by nursing documentation of PO intake 0-50% since admission. Intervention: 1. Boost Glucose Control TID to provide 250 calories, 14 grams protein each 2. Encouraged adequate PO intake to meet estimated needs 3. Do not recommend CHO Controlled diet at this time due to PO intake poor Monitor and Evaluation: Goal: Meet >75% of estimated needs Monitor fluid/electrolyte balance Monitor labs, I/Os, vital signs, weight Discharge Nutrition Recommendations: Diet: Heart Healthy, 2 grams Na, CHO Controlled Supplements: Boost Glucose Control, Glucerna, or other CHO controlled supplements Reason for Assessment: Pt on Clear Liquids x 5 days Per HPI: This is a 53 year old female with history of Non-Hodgkin's lymphoma s/p stem cell transplant, HFrEF (15%), Type 2 Diabetes Mellitus, ALEJANDRO, DVT of Left Axillary and Brachial Veins admitted directly from outside Emergency Department for her altered mental status. ?Per outside records: She was recently admitted to the hospital and was found to have congestive heart failure with an ejection fraction of 15%. She was discharged to a nursing facility. At the nursing facility, she became combative. She had a CT performed yesterday that showed possible hygroma versus subacute resolving subdural hematoma. At the Emergency Department she was hypotensive 97/72, pulse 108, alert and oriented only to self, Cr 1.3, anion gap 12, INR was 2.3, UA showed evidence of 50-100 white cells with 4+ bacteria nitrates. Troponin was indeterminate at 0.046, lactic acid was 6.7. She received Haldol, Ceftriaxone and was started on 250cc of maintenance fluids. Per neurosurgery, appears to be a small R hemisphere hygroma or chronic SDH. Neurosurgery not recommending surgery. Pt transferred to 5400 on 04/08 Active Hospital Problems Diagnosis Date Noted - Chronic combined systolic and diastolic CHF (congestive heart failure) (HCC) 04/11/2018 Overview Note: LVEF 25-30%, Stg 3-4 diastolic dysfunction, echo 04/12 - Altered mental state 04/07/2018 - Lactic acidosis 04/07/2018 - SDH (subdural hematoma) ([facility]) 04/07/2018 - Coagulopathy (HCC) 04/07/2018 - Encephalopathy 04/07/2018 - Obesity, Class II, BMI 35-39.9 04/07/2018 - LV dysfunction 05/20/2010 - Obesity 05/20/2010 - Implantable cardioverter-defibrillator (ICD) in situ 10/13/2009 Overview Note: ICD-Device Mfg [employer] Model 1211-36Q Serial Number [id number] Implant Date 10/10/2009 Implanted By Flavio Delgadillo BLANK _ [employer] Model 7121Q Serial Number [id number] Implant Date 10/10/2009 PAST MEDICAL HISTORY Diagnosis Date - Allergic rhinitis, cause unspecified - CHF (congestive heart failure) (HCC) - Diabetes (HCC) type II, oral and injectable insulin - Essential hypertension, benign - Fibromyalgia - Hypothyroid - Non Hodgkin's lymphoma (HCC) - Obesity, unspecified - PMH - PAST MEDICAL HISTORY OF non hodgkins lymphoma, berkitts - Rheumatoid arthritis (HCC) - Sciatica PAST SURGICAL HISTORY Procedure Laterality Date - CATARACT EXTRACTION HX 09/2016 - DANDC, DIAG AND/OR THERAPEUTIC Dilation AND curettage - DEFIBRILLATOR SURGERY 10-10-2009 [facility] - EXTRACTION ERUPTED TOOTH/EXR wisdom teeth - LAMINECTOMY,THORACIC 2006 - LAP CHOLECYSTECT/CHOLANGIOGRAPHY 04-01-15 - PAST SURGICAL HISTORY OF Left 2003 heel spurs - PAST SURGICAL HISTORY OF 09/24/2013 heart catherization - THYROID FINE NEEDLE ASPIRATION 12/2015 Present Diet Order: Heart Healthy 2 grams, 2000 cc fluid restriction Enteral Access: none Nutritional Intake Prior to Admission: <50% estimated energy need over the past 6 day(s). During visit, pt appeared confused and did not answer question appropriately. Per nursing records pt has had very poor PO intake since admit. Pt was on clear liquids from 04/07-04/12 with intake of 0-50%. Pt was adv to heart healthy diet on 04/12. Breakfast tray was at patient's bedside. Pt only took bites at breakfast. Pt needs assistance with feeding from nursing staff. GI symptoms: none, last BM 04/12 Abdominal Exam: abdomen is soft and bowel sounds are normal per clinical documentation Is the patient having any pain that is interfering with oral/enteral intake? No ANTHROPOMETRICS Height: 167.6 cm (5' 6) Admission Weight: 101.2 kg (223 lb 1.7 oz) Current Weight: 98.6 kg (217 lb 6 oz) Body mass index is 35.09 kg/m?. class 2 obesity Weight has been relatively stable over the past 1.5 years. Weight has decreased by 4.6 kg in the past 6 days representing 4.5% wt change. Predict mostly due to fluid status. Noting pt is also receiving lasix. Last 20 Encounter Wt Readings: Date: Wt: 04/13/2018 96.6 kg- +1 generalized edema 04/12/2018 98.6 kg 04/11/2018 102.2 kg 04/10/2018 105.8 kg 04/09/2018 102.5 kg 04/08/2018 106.3 kg - bed weight 04/07/2018 101.2 kg - bed weight - noting +1 generalized edema, +2 bilateral upper extremity edema, +3 lower extremity edema 03/08/2017 98.4 kg (217 lb) 11/10/2016 99.8 kg (220 lb) 01/01/2016 106.1 kg (234 lb) 09/02/2015 108.6 kg (239 lb 6.4 oz) 04/11/2015 109.8 kg (242 lb) 03/15/2015 113.9 kg (251 lb) 05/08/2014 116.1 kg (256 lb) 01/21/2014 101.3 kg (223 lb 6.4 oz) 12/26/2013 101.2 kg (223 lb) 08/31/2013 105.2 kg (232 lb) 06/08/2013 108.4 kg (239 lb) 05/04/2013 113.9 kg (251 lb) 03/28/2013 128.8 kg (284 lb) 06/12/2012 120.2 kg (265 lb) 05/16/2012 121.7 kg (268 lb 4.8 oz) 04/25/2012 118 kg (260 lb 3.2 oz) 07/14/2011 129.7 kg (286 lb) 03/03/2011 131.1 kg (289 lb) 07/27/2010 135.2 kg (298 lb) [place] Body Weight: 59.1kg Resting Metabolic Rate: 1605 Estimated kilocalorie needs: 6509-3234 kilocalories determined by 25-30 kcal/kg Estimated protein needs: 59-71 grams determined by 1.0-1.2 g/kg [place] weight Estimated fluid needs: 2000 milliliters based on guidelines for patient's with CHF dx NUTRITION FOCUSED PHYSICAL EXAM: Subcutaneous Fat Loss Orbital No fat loss Triceps No fat loss Mid-axillary at the iliac crest No fat loss Muscle Loss Locations: Temporalis No muscle loss Pectoralis No muscle loss Deltoids No muscle loss Interosseous No muscle loss Latissimus dorsi, trapezius Unable to determine at this time due to position Quadriceps Unable to determine at this time due to adipose tissue Gastrocnemius Unable to determine at this time due to adipose tissue Potential micronutrient deficiency revealed in: No deficiency identified Edema: Yes Generalized Ascites: No Assessment of Functional Status: Bedridden, rarely out of bed for a duration of 6 days Temperature Max in 24 hours: Temp (24hrs), Av.8 ?C (98.2 ?F), Min:36.6 ?C (97.9 ?F), Max:37 ?C (98.6 ?F) BP 108/75 Pulse 96 Temp 36.6 ?C (97.9 ?F) (Axillary) Resp 18 Ht 167.6 cm (5' 6) Wt 98.6 kg (217 lb 6 oz) LMP 06/06/2006 SpO2 97% BMI 35.09 kg/m? Recent Labs 04/12/18 0230 GLUC 107* BUN 6* CREAT 0.68 NA 139 K 2.9* CHLOR 99 CO2 32 HB 10.4* HCT 32.4* WBC 6.19 Potential Signs of Inflammation: SDH ALLERGIES Allergen Reactions - Aleve [Naproxen Sod* Swelling - Amitriptyline Other: See Comments - Latex Rash - Sulfa (Sulfonamide * Rash - Tape [Adhesive Tape* Other: See Comments Adhesives on tape Current Facility-Administered Medications: pill lens generator (patient-specific) 1 Each Miscell. (Med.Supl.;Non- Drugs) PRN metOLAzone 2.5 mg tab(s) (ZAROXOLYN) 2.5 mg ORAL q 48 HR furosemide 10 mg injection (LASIX) 10 mg INTRAVENOUS DAILY simethicone, chewable 80 mg tab(s) (MYLICON) 80 mg ORAL QID PRN bisacodyl 10 mg suppository (DULCOLAX) 10 mg RECTAL DAILY PRN acetaminophen 325-650 mg tab(s) (TYLENOL) 325-650 mg ORAL q 6 H PRN atorvastatin 10 mg tab(s) (LIPITOR) 10 mg ORAL AT BEDTIME folic acid 1 mg tab(s) 1 mg ORAL BID pantoprazole DR 40 mg tab(s) (PROTONIX) 40 mg ORAL DAILY (6 AM) melatonin 3 mg tab(s) 3 mg ORAL AT BEDTIME levothyroxine 75 mcg tab(s) (SYNTHROID) 75 mcg ORAL BEFORE BREAKFAST DAILY dextrose 40 % 15 g 15 g ORAL PRN Or glucagon 1 mg injection (GLUCAGEN) 1 mg INTRAMUSCULAR PRN Or dextrose 50% in water 25 mL syringe 12.5 g INTRAVENOUS PRN carvedilol 3.125 mg tab(s) (COREG) 3.125 mg ORAL BID w MEALS cefTRIAXone iv piggyback 1 g in dextrose (iso-osmotic) 50 mL (ROCEPHIN) 1 g INTRAVENOUS q 24 H digoxin 0.125 mg tab(s) (LANOXIN) 0.125 mg ORAL DAILY dextrose 5% in NaCl 0.9% iv infusion 75 mL/hr INTRAVENOUS CONTINUOUS lamoTRIgine 200 mg tab(s) (LaMICtal) 200 mg ORAL AT BEDTIME levETIRAcetam iv piggyback 500 mg in NaCl (iso-osmotic) 100 mL (KEPPRA) 500 mg INTRAVENOUS BID Pressure Injury 04/09/18 1045 Coccyx (Active) Stage Injury 1 04/11/2018 7:05 PM Litigation Specialist Related Pressure Injury No 04/11/2018 7:05 PM Dressing Status Clean, Dry AND Intact 04/11/2018 7:05 PM Frequency of Dressing Change Every 3 Days;As Needed 04/11/2018 7:05 PM Dressing Change Due 04/14/18 04/11/2018 7:05 PM Dressing/Treatment Type Foam-Adhesive 04/11/2018 7:05 PM Drainage Description None 04/11/2018 10:20 AM Drainage Amount None 04/11/2018 10:20 AM Odor No 04/11/2018 10:20 AM Wound Surface Color [place] 04/11/2018 10:20 AM Surrounding Skin Intact 04/11/2018 10:20 AM Number of days: 2 MNT Billing Type: Initial Assess/15 min 4 units SIGNATURE: Domi Arita RD PATIENT NAME: Ifeoma Ashraf DATE: April 13, 2018 TIME: 10:30 AM PAGER: [phone] HEMOGRAM Collected: 04/13/2018 Status: F Source: [facility] 3:45 AM HEALTH SYSTEM REPOSITORY TYPE CODE TESTS RESULT OUT OF REFERENCE UNITS RANGE LAB WBC(LOINC) 3.98-10.04 thou/cmm WBC 5.51 LAB RBC(LOINC) 3.93-5.22 mil/cmm Low RBC 3.16 LAB HGB(LOINC) 11.2-15.7 g/dL Low Hgb 10.2 LAB HCT(LOINC) 34.1-44.9 % Low Hct 32.1 LAB MCV(LOINC) 79.4-94.8 fl High MCV 101.6 LAB MCH(LOINC) 25.6-32.2 pg High MCH 32.3 LAB MCHC(LOINC) 31.6-34.8 % MCHC 31.8 LAB RDW(LOINC) 11.7-14.4 % High RDW 23.0 LAB RDWSD(LOINC 36.4-46.3 fl ) High RDW SD 83.8 LAB PLT(LOINC) 182-369 thou/cmm Low Platelet 167 LAB MPV(LOINC) 9.4-12.3 fl MPV 10.8 Performed By: #### CBC1 #### [facility] [address] [place] [address] BASIC PANEL Collected: 04/13/2018 Status: F Source: [facility] 3:45 AM HEALTH SYSTEM REPOSITORY TYPE CODE TESTS RESULT OUT OF REFERENCE UNITS RANGE LAB NA(LOINC) 136-145 mEq/L Sodium Blood 140 LAB K(LOINC) 3.5-5.1 mEq/L Low Potassium Blood 3.1 LAB CL(LOINC) 98-107 mEq/L Chloride Blood 102 LAB CO2(LOINC) 21-32 mEq/L CO2 Blood 32 LAB GLU(LOINC) 70-99 mg/dL Glucose High Blood 105 LAB BUN(LOINC) 7-18 mg/dL Low BUN Blood 5 LAB CREA(LOINC 0.51-0.95 mg/dL ) Creatinine Blood 0.67 LAB CA(LOINC) 8.5-10.1 mg/dL Low Calcium Blood 8.4 LAB ANGAP(LOIN 8-16 C) Anion Gap 9 Performed By: #### P8 #### [facility] [address] [place] [address] NURSING PROG Observed: 04/12/2018 Status: COMPLETED Source: [facility] 5:24 PM [facility] REPOSITORY HNO ID: [id number] Author: Angelita (Rn) NAHUM Austin Service: Nursing Author Type: Registered Nurse Type: Nursing Progress Note Filed: 04/12/2018 5:30 PM Note Text: Nursing Progress Note Patient Name: Ifeoma Ashraf Patient Location: [place] [address] [address]* Daily Note: Care management gave mother of patient a list of facilities to chose from. First choice is [facility] SN[facility]. This note was completed by: Angelita Austin RN THERAPY NT Observed: 04/12/2018 Status: COMPLETED Source: [facility] 4:17 PM [facility] REPOSITORY HNO ID: [id number] Author: Indu MckeonPtHenrik Nathan PT Service: Physical Therapy Author Type: Physical Therapist Type: Therapy (PT/OT/Speech/Resp) Filed: 04/12/2018 4:41 PM Note Text: Physical Therapy Evaluation SERVICE DATE: 04/12/2018 SERVICE TIME: 1505 to 1555 ROOM: [place] [address] Present on Admission: - Altered mental state - Implantable cardioverter-defibrillator (ICD) in situ - LV dysfunction - Obesity - Lactic acidosis - SDH (subdural hematoma) (HCC) - Coagulopathy (HCC) - Encephalopathy - Obesity, Class II, BMI 35-39.9 Recommended Discharge Disposition: Subacute/SNF Justification For Post Acute Needs: Good premorbid functional status;Medically complex;Willing to participate;Anticipate that patient will require daily (5x/wk) skilled therapy in a post-acute facility setting at the time of acute hospital discharge Anticipated Discharge Needs: Physical Assist at Home Physical Assist at Home for: Transfers;Ambulation;Stairs;Safety;Self Care Recommended Discharge Equipment: No equipment needs anticipated PT Recommendations to Nursing: Ambulate with device;To bathroom;Transfer to/from chair;OOB for Meals;Utilize bed in chair position;With assist of 1 person Device: Wheeled Walker PT 6 Clicks Score: 10 Precautions/Activity Restrictions: Bed/Chair Alarm;Fall Risk;Lines/Tubes/Drains Precaution/Activity Restriction Comments: IV, tele Isolation Type: None ASSESSMENT : Patient presents with 3 or more personal factors (sex,age, coping styles, social background, education, overall behavior patterns that may influence how disability is experienced) and/or comorbidities that impact current function and ability to progress through a plan of care including: abdominal pain, impaired functional transfers, non-ambulatory, encephalopathy contributing to disparities in participation with therapy - see OT chuy from this am. Spoke with mom regarding patient's medical course and behavioral patterns. 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 She had stem cell therapy and mom was told it might affect other aspects of patient's health and behavior. Mom says it has. Patient has been falling a lot, CT head 04/10 report says: IMPRESSION: Minimal acute subdural hemorrhage along the posterior right interhemispheric falx is new or minimally larger. Stable small subacute-chronic subdural hemorrhage along the right cerebral convexity with only minimal mass effect. Patient continues to be a high fall risk. Mom says she just doesn't know what to do and was tearful about her daughter's condition. She also relayed that patient's best friend early February and patient has seemed down about it since. Recommended [facility] nursing to visit. Upon examination of body systems (cardiovascular/pulm, integumentary, musculoskeletal, neuromuscular, and communication/affect/cognition/language/learning style) physical therapy will be addressing 4 or more elements (body structures and functions, activity limitation, and/or participation) including: functional mobility, safety, endurance, balance, strength/ROM, and ambulation. The patient's clinical presentation is evolving(fluctuation in pain and variable response to activty/prior treatment) requiring moderate complexity clinical decision making. . Requires skilled PT for for improvement of functional mobility and return to baseline activities. Without continued PT patient is at risk for further decline and increased burden of care. . Patient Disposition at Start of Session: Supine in Bed;Family Present Patient Disposition at End of Session: Supine in Bed;Call Sidhu in Re[place];Family Present Tolerance Limited By Fatigue;Pain;Alertness Physical Therapy Problem List: Cognitive Deficit;Pain;Safety Deficits;Impaired Self Care;Decreased Activity Tolerance;Decreased Strength;Functional Mobility Impairment;Balance Impaired Patient /Caregiver Goals: Go Home Goals for Plan of Care: Transfer supine to/from sit with: Modified Independent Transfer sit to/from stand with: Modified Independent Ambulate with: Modified Independent Distance: 80 Device: Wheeled Walker;Cane (vs) Ambulate up and down steps with: Contact Guard Assistance Number of steps: 2 Device: Rail;Hand Held Assist Goal: Participate in 25 minutes continuous therapy activities Rehab Potential: Good PLAN: Treatment Frequency (times per week): 5 (1-5) Current admission Treatment Interventions: Education;Strengthening;Functional Mobility Training;Balance Training;Neuromuscular Re-education Plan of Care developed with: Patient;Family TREATMENT INTERVENTIONS: Therapy Diagnosis: Unsteadiness on feet;Abnormalities of gait and mobility-other Interventions Provided: Evaluation;Therapeutic Activity (92065) $ Evaluation-Moderate (22740) Billed Units: 1 unit Therapeutic Activity (45176) Treatment Minutes: 30 2 units Skilled Intervention(s): Patient required much patient and encouragement to participate with therapy and goal of getting to chair. Instructed patient on log roll technique for bed mobility including B LE hook lying position to initiate rolling. Practiced several times L/R for clean up. Patient was heavily incontinent of stool and urine. When I asked her ifi she called nursing to let them know, she said she didn't care and it was nobody's business. Instructed on UE and LE sequencing with supine to sit transfer, use of UE placement on handrails to assist with upright position. Patient w/increased pain rolling and up to Edge of bed. Patient did not assist for side-lying to Edge of bed. Instructions provided for correct hand placement on bed/rail for sit <-> stand transfers, position bottom at Edge of bed. Patient required max assist to stand the first time. We stood 2 x to attempt to get to chair - patient required much encouragement to take steps and turn toward chair. She was able to stand there, not looking at chair despite directions to do so so she knew where she was going. Stood probably 4-5 minutes with holding onto gait belt and standing against patient. When I attempted to stand pivot, she resisted me and wanted to sit back on Edge of bed. She sat then extended her back onto bed, sideways across bed. She was unable to assist to sit back on Edge of bed. We stood again to attempt the same activity with the same results except for lying back on bed. Second stand required mod assist. Chair transfer idea was aborted but we stood again to try to get her placed higher up in the bed and again, despite much encouragement and standing for 2-3 minutes, she did not take steps. When we laid her down in the bed, she turned away and stayed like that, ignoring my attempts to speak to her. Total Timed Code Treatment Minutes: 30 Total Treatment Time (minutes): 50 FUNCTIONAL G CODE: PT 6 Clicks Score: 10 (04/12/18 1505) Mobility: Walking and Moving Around Current Status (G8978): CL (04/12/18 1505) Mobility: Walking and Moving Around Goal Status (G8979): CJ (04/12/18 1505) Based on clinical assessment and the score on the 6 Clicks Functional Assessment Tool, the G code and corresponding severity modifiers are documented above. SUBJECTIVE: Current Hospital Course: Chart reviewed; 53 year old female presents with s/p mechanical fall with subdural hematoma ~2 weeks ago. Per outside records: she was recently admitted to the hospital and was found to have congestive heart failure with an ejection fraction of 15%. She was discharged to a nursing facility. At the nursing facility, she became combative. She had a CT performed yesterday that showed possible hygroma versus subacute resolving subdural hematoma. Her baseline is AANDOx3 living with assist of her parents. She has fallen an unknown amount of times while on Eliquis for history of DVT. No evidence of new/acute DVT. PAST MEDICAL HISTORY Diagnosis Date - Allergic rhinitis, cause unspecified - CHF (congestive heart failure) (HCC) - Diabetes (HCC) type II, oral and injectable insulin - Essential hypertension, benign - Fibromyalgia - Hypothyroid - Non Hodgkin's lymphoma (HCC) - Obesity, unspecified - PMH - PAST MEDICAL HISTORY OF non hodgkins lymphoma, berkitts - Rheumatoid arthritis (HCC) - Sciatica PAST SURGICAL HISTORY Procedure Laterality Date - CATARACT EXTRACTION HX 09/2016 - DANDC, DIAG AND/OR THERAPEUTIC Dilation AND curettage - DEFIBRILLATOR SURGERY 10-10-2009 [facility] - EXTRACTION ERUPTED TOOTH/EXR wisdom teeth - LAMINECTOMY,THORACIC 2006 - LAP CHOLECYSTECT/CHOLANGIOGRAPHY 04-01-15 - PAST SURGICAL HISTORY OF Left 2002 heel spurs - PAST SURGICAL HISTORY OF 09/24/2013 heart catherization - THYROID FINE NEEDLE ASPIRATION 12/2015 Reason for Physical Therapy Consult : unsuccessful mobility by nursing Relevant Past Medical History: AICD, encephalopathy Patient Report: Identification verified x2, patient agreeable to therapy. Mom present and supportive, apologetic about patient's behavior. Denies pain then exhibits pain w/mobility. Home Environment Patient Lives With: Family (has been at SNF for ~2 weeks) Assistance Available: 24 Hour Entry To Home: Stairs;Without Rail (they have a non-wheeled walker placed against house to use ) Number Of Stairs Into Home: 2 Number Of Stairs To Bed/Bath: 0 Equipment Owned: Wheeled Walker;Standard Walker;Rollator;Shower Chair Prior Functional Level: Within Functional Limits (ambulated w/rollator infrequently) OBJECTIVE: Range Of Motion: Within Functional Limits (B UE/LE) Strength: Within Functional Limits (B UE/LE 4+/5) CURRENT FUNCTIONAL STATUS: Current Functional Mobility Assist Level Additional Information Rolling Maximal Assistance (X2) Supine to Sit Maximal Assistance (X2) Sit to Supine Maximal Assistance (X2) Scooting Sit to Stand Maximal Assistance Stand to Sit Maximal Assistance Bed to Chair (patient stood only, did not move feet to get to chair) Toilet/Commode Gait Stairs Curb Step Car Transfer Balance: Dynamic Sitting;Dynamic Standing Dynamic Sitting Balance: (Good) Please see discipline specific clinical documentation flowsheet for complete details for this therapy evaluation/treatment. SIGNATURE: Indu Nathan PT PATIENT NAME: Ifeoma Ashraf DATE: April 12, 2018 TIME: 4:17 PM PROGRESS Observed: 04/12/2018 Status: COMPLETED Source: [facility] 1:54 PM [facility] OTHER [facility]AMP[facility] REPOSITORY HNO ID: [id number] Author: Janusz Garcia Service: Hospital Medicine Author Type: Physician Type: Progress Notes Filed: 04/12/2018 2:10 PM Note Text: INPATIENT PROGRESS NOTE CHIEF COMPLAINT: AMS INTERVAL HPI: pt denies any complaints. PHYSICAL EXAM: BP 91/65 Pulse 90 Temp (Src) 98.2 (Oral) Resp 18 Ht 5' 6 (1.68m) Wt 217 lb 6 oz (98.6kg) SpO2 94% LMP 06/06/2006 BMI 35.10 kg/(m2). GENERAL: Alert, no distress, cooperative, still confused. LUNGS: Lungs clear to auscultation, Good diaphragmatic excursion CARDIAC: Normal S1 and S2; no rubs, murmurs, or gallops ABDOMEN: Abdomen soft, non-tender, BS normal, No masses or organomegaly EXTREMITIES: No edema s II-XII intact DATA: Diagnostic tests reviewed for today's visit: CBC, Coags, BMP, Mg, Phos Recent Labs 04/12/18 0230 04/11/18 0639 04/10/18 0510 WBC 6.19 7.00 5.54 HB 10.4* 10.6* 11.0* HCT 32.4* 33.4* 35.7 PLT 189 164* 144* INR 1.47 1.56 1.51 NA 139 136 139 K 2.9* 3.2* 3.4* CHLOR 99 97* 100 CO2 32 32 28 BUN 6* 7 8 CREAT 0.68 0.70 0.65 GLUC 107* 97 87 CA 8.2* 8.7 8.6 Assessment/Plan # acute encephalopathy- ?baseline. Seems still confused =# UTI- on ceftriaxone. Urine cx neg. DC ABX. Received IV ABX for 5 days # Small SDh- non surgical. Sz PPX for 1 week, finihses on 04/14. ? Change to PO # chronic systolic/diastolic HF- CHF measures. Cardiology following. On lasix and metoloazone # h/o DVT- eliquis on hold. ? When to restart will d/w NS # hypokalemia- replace. Advance diet Plan for SNF at [place] SIGNATURE: Janusz Garcia MD PATIENT NAME: Ifeoma Ashraf DATE: April 12, 2018 TIME: 1:54 PM PAGER: PROGRESS Observed: 04/12/2018 Status: COMPLETED Source: [facility] 12:07 PM [facility] OTHER [facility]AMP[facility] REPOSITORY HNO ID: [id number] Author: Rubén Dye Service: Cardiovascular Disease Author Type: Nurse Practitioner Type: Progress Notes Filed: 04/12/2018 12:18 PM Note Text: PROGRESS NOTE CARDIOLOGY SERVICE SERVICE DATE: 04/12/2018 SERVICE TIME: 12:07 PM Subjective INTERIM HISTORY: Patient resting in bed comfortably. No distress. Denies cp or sob. + AVIVA b/l. Getting IVF and low dose IV lasix while getting fluids. Would be okay to start low dose PO lasix tomorrow. Objective PHYSICAL EXAM: Body mass index is 35.09 kg/m?. O2 Therapy: Room Air No Data Recorded Patient Vitals for the past 24 hrs: BP Temp Temp src Pulse Resp SpO2 Weight 04/12/18 1125 113/70 36.7 ?C (98.1 ?F) Axillary 90 16 98 % - 04/12/18 0650 108/75 36.6 ?C (97.9 ?F) Axillary 96 18 97 % - 04/12/18 0619 - - - - - - 98.6 kg (217 lb 6 oz) 04/12/18 0346 110/75 36.8 ?C (98.2 ?F) Axillary 97 18 96 % - 04/11/18 1823 110/71 37 ?C (98.6 ?F) Oral 83 18 99 % - 04/11/18 1235 - - - 100 - - - Pleasant, comfortable, not in acute distress. Awake, alert, oriented times 3. Moves all extremities. SKIN: No rash or lumps. HEENT: Normocephalic, face symmetrical. NECK: Supple, no JVD, no carotid bruit, no thyromegaly. LUNGS: Clear to auscultation bilaterally. CARDIAC: PMI present, RRR, S1 and S2, no S3 or S4, no additional heart sounds or murmurs. ABDOMEN: Soft, nontender, bowel sounds present. EXTREMITIES: No edema. PULSES: Peripheral pulses present. MEDICATIONS: Current hospital medications: pill lens generator (patient-specific) 1 Each Miscell. (Med.Supl.;Non- Drugs) PRN metOLAzone 2.5 mg tab(s) (ZAROXOLYN) 2.5 mg ORAL q 48 HR furosemide 10 mg injection (LASIX) 10 mg INTRAVENOUS DAILY simethicone, chewable 80 mg tab(s) (MYLICON) 80 mg ORAL QID PRN bisacodyl 10 mg suppository (DULCOLAX) 10 mg RECTAL DAILY PRN acetaminophen 325-650 mg tab(s) (TYLENOL) 325-650 mg ORAL q 6 H PRN atorvastatin 10 mg tab(s) (LIPITOR) 10 mg ORAL AT BEDTIME folic acid 1 mg tab(s) 1 mg ORAL BID pantoprazole DR 40 mg tab(s) (PROTONIX) 40 mg ORAL DAILY (6 AM) melatonin 3 mg tab(s) 3 mg ORAL AT BEDTIME levothyroxine 75 mcg tab(s) (SYNTHROID) 75 mcg ORAL BEFORE BREAKFAST DAILY dextrose 40 % 15 g 15 g ORAL PRN glucagon 1 mg injection (GLUCAGEN) 1 mg INTRAMUSCULAR PRN dextrose 50% in water 25 mL syringe 12.5 g INTRAVENOUS PRN carvedilol 3.125 mg tab(s) (COREG) 3.125 mg ORAL BID w MEALS cefTRIAXone iv piggyback 1 g in dextrose (iso-osmotic) 50 mL (ROCEPHIN) 1 g INTRAVENOUS q 24 H digoxin 0.125 mg tab(s) (LANOXIN) 0.125 mg ORAL DAILY dextrose 5% in NaCl 0.9% iv infusion 75 mL/hr INTRAVENOUS CONTINUOUS lamoTRIgine 200 mg tab(s) (LaMICtal) 200 mg ORAL AT BEDTIME levETIRAcetam iv piggyback 500 mg in NaCl (iso-osmotic) 100 mL (KEPPRA) 500 mg INTRAVENOUS BID DATA: Diagnostic tests reviewed for today's visit: Most recent labs and imaging results. Past 72 Hour Labs: Recent Labs 04/12/18 0230 WBC 6.19 RBC 3.24* HB 10.4* HCT 32.4* MCV 100.0* MCH 32.1 MCHC 32.1 PLT 189 MPV 11.1 GLUC 107* BUN 6* CREAT 0.68 NA 139 K 2.9* CHLOR 99 CO2 32 CA 8.2* PTSEC 14.8* INR 1.47 Last Lab Drawn: TSH 5.990 03/22/2013 Triglyceride 53 03/22/2013 HDL Cholesterol 34 03/22/2013 LDL Cholesterol 47 03/22/2013 Cholesterol, Total 92 03/22/2013 Assessment/Plan Chronic combined systolic and diastolic CHF (congestive heart failure) (HCC) POA: Unknown Assessment AND Plan: non ischemic 2/2 chemo. s/p icd implantation with LVEF of 25-30% and stage 3-4 DD. Mostly compensated. Careful with continuous IVF given severe systolic/diastolic dysfunction. Continue with low dose IV lasix while on IVF. Transition to PO likely tomorrow. C/w current meds. No DIAMOND/ARB 2/2 hypotension. C/w metolazone qod. Was taking daily at home. CHF core measures. Follows with Dr. Pedersen at [facility] for cardiac care as outpatient. F/u once discharged. I/o not accurate. Intake/Output Summary (Last 24 hours) at 04/12/18 1212 Last data filed at 04/12/18 1122 Gross per 24 hour Intake 2478 ml Output 250 ml Net 2228 ml Hypokalemia: Replaced per primary No further recs. Will sign off. F/u with Dr. Pedersen as outpatient. SIGNATURE: Rubén Dye APRN.CNP PATIENT NAME: Ifeoma Ashraf DATE: April 12, 2018 TIME: 12:07 PM PAGER/CONTACT #: [phone] CASE MANAGEM Observed: 04/12/2018 Status: COMPLETED Source: [place] 12:01 PM [facility] REPOSITORY HNO ID: [id number] Author: Francy (Rn) NAHUM Kaur Service: Care Management Author Type: Registered Nurse Type: Care Mgt Progress Note Filed: 04/12/2018 12:01 PM Note Text: CARE MANAGEMENT PROGRESS NOTE SERVICE DATE: 04/12/2018 SERVICE TIME: 12:01 PM LOS: 5 days Still awaiting choice, will cont to follow. . SIGNATURE: Francy Kaur RN PATIENT NAME: Ifeoma Ashraf DATE: April 12, 2018 TIME: 12:01 PM PAGER/CONTACT #: [phone] ALLIED HEALTH Observed: 04/12/2018 Status: COMPLETED Source: [place] 11:07 AM [facility] REPOSITORY HNO ID: [id number] Author: Dejuan Cox Student Service: (none) Author Type: (none) Type: Allied Health Filed: 04/12/2018 11:58 AM Note Text: SPIRITUALCARE Spiritual Care Visit- Brief Note Name: Ifeoma Ashraf Date: April 12, 2018 Notes: Pt was sleeping when I went to visit with her. I left a Spiritual Care card at her bedside and will try to visit the pt later. Marine Services Technician Signature: Dejuan Cox Student To contact the Spiritual Care Department: Please call [phone] or Page the On-Call Marine Services Technician at pager [phone] Thank you for the opportunity to be of service. This is an electronically created document. IF PRINTED, PLEASE DO NOT REMOVE FROM THE CHART OR MODIFY PRINTED COPY. HEMOGRAM Collected: 04/12/2018 Status: F Source: [facility] 2:30 AM HEALTH SYSTEM REPOSITORY TYPE CODE TESTS RESULT OUT OF REFERENCE UNITS RANGE LAB WBC(LOINC) 3.98-10.04 thou/cmm WBC 6.19 LAB RBC(LOINC) 3.93-5.22 mil/cmm Low RBC 3.24 LAB HGB(LOINC) 11.2-15.7 g/dL Low Hgb 10.4 LAB HCT(LOINC) 34.1-44.9 % Low Hct 32.4 LAB MCV(LOINC) 79.4-94.8 fl High MCV 100.0 LAB MCH(LOINC) 25.6-32.2 pg MCH 32.1 LAB MCHC(LOINC) 31.6-34.8 % MCHC 32.1 LAB RDW(LOINC) 11.7-14.4 % High RDW 22.7 LAB RDWSD(LOINC 36.4-46.3 fl ) High RDW SD 83.9 LAB PLT(LOINC) 182-369 thou/cmm Platelet 189 LAB MPV(LOINC) 9.4-12.3 fl MPV 11.1 Performed By: #### CBC1 #### [facility] [address] [place], [place] [address] BASIC PANEL Collected: 04/12/2018 Status: F Source: [facility] 2:30 AM HEALTH SYSTEM REPOSITORY TYPE CODE TESTS RESULT OUT OF REFERENCE UNITS RANGE LAB NA(LOINC) 136-145 mEq/L Sodium Blood 139 LAB K(LOINC) 3.5-5.1 mEq/L Low Potassium Blood 2.9 LAB CL(LOINC) 98-107 mEq/L Chloride Blood 99 LAB CO2(LOINC) 21-32 mEq/L CO2 Blood 32 LAB GLU(LOINC) 70-99 mg/dL Glucose High Blood 107 LAB BUN(LOINC) 7-18 mg/dL Low BUN Blood 6 LAB CREA(LOINC 0.51-0.95 mg/dL ) Creatinine Blood 0.68 LAB CA(LOINC) 8.5-10.1 mg/dL Low Calcium Blood 8.2 LAB ANGAP(LOIN 8-16 C) Anion Gap 11 Performed By: #### P8 #### [place] [address] PROTIME Collected: 04/12/2018 Status: F Source: [facility] 2:30 AM HEALTH SYSTEM REPOSITORY TYPE CODE TESTS RESULT OUT OF REFERENCE UNITS RANGE LAB PTI(LOINC) 9.3-11.9 sec Prothrombin High Time 14.8 LAB INR(LOINC) INR 1.47 Result Comment: Standard Therapy 2.0-3.0 High Dose 2.5-3.5 Performed By: #### PT #### [place] [address] CASE MANAGEM Observed: 04/11/2018 Status: COMPLETED Source: [facility] 3:09 PM CLINIC OTHER CAMPUS REPOSITORY HNO ID: [id number] Author: Francy (Nahum) NAHUM Kaur Service: Care Management Author Type: Registered Nurse Type: Care Mgt Progress Note Filed: 04/11/2018 3:10 PM Note Text: CARE MANAGEMENT PROGRESS NOTE SERVICE DATE: 04/11/2018 SERVICE TIME: 3:09 PM LOS: 4 days [facility] has no female beds and are OON, Provided list in the room, family will be in to pick. . SIGNATURE: Francy Kaur RN PATIENT NAME: Ifeoma Ashraf DATE: April 11, 2018 TIME: 3:09 PM PAGER/CONTACT #: [phone] LEAD ELECTROCARDIOGRAM Observed: 04/11/2018 Status: F Source: [place] 2:15 PM [facility] REPOSITORY [facility] Cardiovascular Services [address] [place] [address] 12 Lead EKG 04/06/18 1843 MR#: [id number] Acct: [id number] Name: Ifeoma Ashraf Rep #: [id number] : 1965 53 From: Boone Ch MD Attending Dr: Status: DEP ER Ordering Dr: Dejuan Bacon MD Date: 04/06/18 Location: ED Sex: F C Admitted: Test Reason : ALT LOC Blood Pressure : / mmHG Vent. Rate : 106 BPM Atrial Rate : 106 BPM P-R Int : 190 ms QRS Dur : 120 ms QT Int : 362 ms P-R-T Axes : 068 -44 098 degrees QTc Int : 480 ms Sinus tachycardia Left axis deviation Inferior infarct , age undetermined Anterolateral infarct , age undetermined Abnormal ECG Confirmed by JING KING, BOONE ([id number]), assignment desk editor ASHLI CHAN ([id number]) on 04/11/2018 2:14:50 PM Referred By: Oscar Chan Confirmed By:BOONE CH MD 04/11/18 1414 Date Boone Ch MD CC: Oscar Chan MD; Dejuan Bacon Signed ALLIED HEALTH Observed: 04/11/2018 Status: COMPLETED Source: [facility] 1:15 PM CLINIC OTHER CAMPUS REPOSITORY HNO ID: [id number] Author: Zeny Thayer OR-BC Service: (none) Author Type: (none) Type: Allied Health Filed: 04/11/2018 2:57 PM Note Text: MUSIC THERAPY NOTE SERVICE DATE: 04/11/2018 SERVICE TIME: 1:15pm Referred By: Nurse Reason for Referral: Orientation Session Type: Initial Time Spent (minutes): 60 GOALS: Goals: Build Rapport;Decrease Perception/Indication of Pain;Decrease Anxiety;Improve Coping;Promote Feelings of Control;Provide Emotional Support;Increase Relaxation Coping Items Addressed: Skills INTERVENTIONS: Interventions: Education;Tiana Analysis;Making Choices;Music-Assisted Relaxation;Singing;Music Listening;Therapeutic Use of Self/Verbal Processing Making Choices: Songs Music-Assisted Relaxation: Breathing;Imagery Techniques While Listening To Music;Relaxation Response Listening Type: Live Response Before After Pain (yes) (Better) Anxiety (a lot) (better) Mood (did not select face) (did not ask) Facial Behavior 2 - Frown/Grimace 1 - Neutral Body Movement 1 - Restless 0 - No Movement/Appropriate Movement Sleep N/A - Awake N/A - Awake Vocal 2 - Crying, Moaning, Complaining 0 - Positive Scale: 0 = No pain/anxiety 10 = Worst possible pain/anxiety RESPONSE: Music Choices: Made Choices Number of Choices: 2 Response During Interventions: Knew Songs;Hand Tapping;Hummed;Sang Music Used: [place];Amazing Elaine, My Chains are Gone; Eye of the [place]; Fight Song; Three Little Birds; Here Comes the Sun Style of Music: Various Family Present: No Patient's Verbal Response: Positive OUTCOME: Goals: Met Met: Build Rapport;Decrease Anxiety;Decrease Perception/Indication of Pain;Improve Coping;Increase Relaxation;Promote Feelings of Control;Provide Emotional Support FOLLOW UP: Will Continue to Follow Ms. Ashraf presented in bed, crying and restless. She was agreeable to music therapy and asked if it was okay if she screamed out. She reported feeling angry, stating she had just had a fight with her mother. She was tearful throughout the session. She reported enjoying music and couldn't remember what type of music she enjoyed. The music therapist provided her with choices of songs from which she chose. The music therapist provided live, preferred music at bedside using voice and guitar. Ms. Ashraf sang with the music therapist tapping her hand and moving to the music. In between songs, the music therapist provided Ms. Ashraf with emotional support, worked on identifying coping skills, and worked on mindful breathing. Following the session, Ms. Ashraf appeared more relaxed and stated she felt much better. She continued to practice breathing as the music therapist left. She is open to follow up. Of note, Ms. Ashraf stated she cried every day and had been crying every day for the past month. She also said she used to enjoy crafting but didn't anymore because she felt so overwhelmed. SIGNATURE: Zeny Thayer [facility] PATIENT NAME: Ifeoma Ashraf DATE: April 11, 2018 TIME: 2:52 PM PAGER/CONTACT #: P: [phone] CASE MANAGEM Observed: 04/11/2018 Status: COMPLETED Source: [place] 10:06 AM [facility] OTHER CAMPUS REPOSITORY HNO ID: [id number] Author: Francy (Rn) NAHUM Kaur Service: Care Management Author Type: Registered Nurse Type: Care Mgt Progress Note Filed: 04/11/2018 10:07 AM Note Text: CARE MANAGEMENT PROGRESS NOTE SERVICE DATE: 04/11/2018 SERVICE TIME: 10:07 AM LOS: 4 days Awaiting acceptance from [facility], will cont to follow . SIGNATURE: Francy Kaur RN PATIENT NAME: Ifeoma Ashraf DATE: April 11, 2018 TIME: 10:07 AM PAGER/CONTACT #: [phone] CONSULT Observed: 04/11/2018 Status: COMPLETED Source: [place] 9:01 AM [facility] OTHER CAMPUS REPOSITORY HNO ID: [id number] Author: Chacorta Chance Service: Clinical Cardiology Author Type: Physician Type: Consults Filed: 04/11/2018 9:41 AM Note Text: CARDIOLOGY CONSULT NOTE SERVICE DATE: 04/11/2018 SERVICE TIME: 9:02 AM CONSULTING PHYSICIAN: Chacorta Chance MD PCP: Sangeetha Irvin MD ATTENDING: Val Ortiz REASON FOR CONSULT: Shortness of Breath CHIEF COMPLAINT: Sepsis (HCC) [A41.9] HPI:Cardiac consultation at the request of Dr. Neal. Ms. Ashraf is a 53 year old female who is seen today for CHF. She has a history of Non Hodgkins lymphoma, SP stem cell transplant, DMII. 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 She normally sees Dr Pedersen for her cardiac care at the main campus [facility]. She was admitted to [facility] with altered mental status (possible encephalopathy). Apparently, this has been going on for the last 2 weeks. At present, the patient is somewhat confused, and slow to answer questions. Most history is obtained from chart documentation, discussion with nursing staff. She denies feeling any chest pain/palpitations. She does admit to chronic shortness of breath due to her systolic congestive heart failure. She claims to have been compliant with diet/medications. In terms of cardiac workup, she underwent an echocardiogram in 04/12, which revealed an LV ejection fraction of 25-30 %, stage 3-4 diastolic dysfunction, moderate mitral regurgitation, moderately dilated LA, EUSEBIA 41 ml/m2 At present, the patient is comfortable in bed, talking in full sentences, and is not overtly short of breath, although she is quite slow to answer questions. She has NYHA Class II symptoms of CHF. PAST MEDICAL HISTORY Diagnosis Date - Allergic rhinitis, cause unspecified - CHF (congestive heart failure) (HCC) - Diabetes (HCC) type II, oral and injectable insulin - Essential hypertension, benign - Fibromyalgia - Hypothyroid - Non Hodgkin's lymphoma (HCC) - Obesity, unspecified - PMH - PAST MEDICAL HISTORY OF non hodgkins lymphoma, berkitts - Rheumatoid arthritis (HCC) - Sciatica PAST SURGICAL HISTORY Procedure Laterality Date - CATARACT EXTRACTION HX 09/2016 - DANDC, DIAG AND/OR THERAPEUTIC Dilation AND curettage - DEFIBRILLATOR SURGERY 10-10-2009 [facility] - EXTRACTION ERUPTED TOOTH/EXR wisdom teeth - LAMINECTOMY,THORACIC 2006 - LAP CHOLECYSTECT/CHOLANGIOGRAPHY 04-01-15 - PAST SURGICAL HISTORY OF Left 2003 heel spurs - PAST SURGICAL HISTORY OF 09/24/2013 heart catherization - THYROID FINE NEEDLE ASPIRATION 12/2015 SOCIAL HISTORY Social History Substance Use Topics - Smoking status: Never Smoker - Smokeless tobacco: Never Used - Alcohol use No FAMILY HISTORY Problem Relation Age of Onset - Hypertension Mother - Heart Mother SD - d/t sepsis from UTI - Diabetes Father DIET CONTROLLED - Stroke Father - Allergies Father - Hypertension Father - Allergies Brother - Hypertension Maternal Grandmother - Diabetes Brother DIET CONTROLLED - Hypertension Brother ALLERGIES: ALLERGIES Allergen Reactions - Aleve [Naproxen Sod* Swelling - Latex Rash - Sulfa (Sulfonamide * Rash - Tape [Adhesive Tape* Other: See Comments Adhesives on tape MEDICATIONS: nitrofurantoin monohydrate and macrocrystal (MACROBID) 100 mg capsule Take 100 mg by mouth twice daily. folic acid 1 mg tablet Take 1 mg by mouth twice daily. mirtazapine (REMERON) 15 mg tablet Take 15 mg by mouth daily at bedtime. senna (SENNA) 8.6 mg tab Take 8.6 mg by mouth once daily as needed (constipation). gabapentin (NEURONTIN) 100 mg capsule Take 100 mg by mouth twice daily. For fibromyalgia/neuro pain omeprazole (PRILOSEC) 20 mg capsule Take 20 mg by mouth once daily. ondansetron (ZOFRAN) 4 mg tablet Take 4 mg by mouth every 8 hours as needed for Nausea/Vomiting. venlafaxine ER (EFFEXOR XR) 150 mg 24 hr capsule Take 150 mg by mouth once daily. apixaban (ELIQUIS) 5 mg tab(s) Take 5 mg by mouth twice daily. carvedilol (COREG) 3.125 mg tablet Take 3.125 mg by mouth twice daily with meals. cholecalciferol (VITAMIN D-3) 5,000 unit tab Take 5,000 Units by mouth once daily. levothyroxine (SYNTHROID) 75 mcg tablet Take 75 mcg by mouth daily before breakfast. metOLAzone (ZAROXOLYN) 2.5 mg tablet Take 2.5 mg by mouth once daily. simvastatin (ZOCOR) 10 mg tablet Take 10 mg by mouth daily at bedtime. digoxin (LANOXIN) 125 mcg tablet TAKE ONE TABLET BY MOUTH ONCE DAILY melatonin 3 mg Take by mouth daily at bedtime. furosemide (LASIX) 40 mg tablet Take 1 tablet by mouth once daily. lamoTRIgine 200 mg tablet Take 200 mg by mouth daily at bedtime. REVIEW OF SYSTEMS: GENERAL: Negative for:Weight loss and Weight gain HEENT: Negative for:Nosebleeds RESPIRATORY: Negative for:Shortness of breath GASTROINTESTINAL: Negative for:Blood in stool MUSCULOSKELETAL: Negtive for: Muscle or joint pain, stiffness, Joint swelling SKIN: No rash HEMATOLOGICAL/LYMPHATIC: Negative for: Easy bruising and Easy bleeding CARDIOVASCULAR: As stated in HPI. 10 system review negative except as stated in HPI PHYSICAL EXAMINATION: BP 115/73 Pulse 84 Temp (Src) 98.1 (Oral) Resp 18 Ht 5' 6 (1.68m) Wt 225 lb 5 oz (102.2kg) SpO2 100% LMP 06/06/2006 BMI 36.38 kg/(m2). General: Well appearing, in no acute distress, speaking in complete sentences., Well appearing. Psych: Normal Affect Eyes: No subconjunctival hemorrhage Skin: No rash, bruising Oropharynx: Mucous membranes normal to slightly dry Neck: no visible jugular venous distention, no carotid bruits. Lymph: No cervical lymphadenopathy Lungs: Clear to auscultation bilaterally, no wheezing or rhonchi. Heart: S1, S2 normal, no murmur Extremities: No peripheral edema Neuro: Grossly nonfocal LABS: 12 lead EKG 04/06/18 18:43: Left axis deviation, Sinus tachycardia and intraventricular conduction delay, possible inferior infarct, QTc 480 msec. Past 72 Hour Labs: Recent Labs 04/11/18 0639 WBC 7.00 RBC 3.30* HB 10.6* HCT 33.4* MCV 101.2* MCH 32.1 MCHC 31.7 PLT 164* MPV 11.4 GLUC 97 BUN 7 CREAT 0.70 NA 136 K 3.2* CHLOR 97* CO2 32 CA 8.7 PTSEC 15.4* INR 1.56 Intake/Output Summary (Last 24 hours) at 04/11/18901 Last data filed at 04/11/18 0600 Gross per 24 hour Intake 180 ml Output 0 ml Net 180 ml Last Lab Drawn: TSH 5.990 03/22/2013 Triglyceride 53 03/22/2013 HDL Cholesterol 34 03/22/2013 LDL Cholesterol 47 03/22/2013 Cholesterol, Total 92 03/22/2013 Impression/Recommendations Active Problems: Implantable cardioverter-defibrillator (ICD) in situ POA: Yes Assessment AND Plan: Stable. No recent ICD firings from what she tells me. LV dysfunction POA: Yes Assessment AND Plan: 2/2 nonischemic, chemo induced CMP as described above. Continue medical therapy with Coreg, Lasix, Digoxin, Metolazone. She is currently not on an DIAMOND inhibitor /Entresto. Her BPs are borderline (low on most occasions). I would hold off on initiating this therapy for now. Consider the same when her BP improves Obesity POA: Yes Assessment AND Plan: Management per primary team Altered mental state POA: Yes Assessment AND Plan: 2/2 encephalopathy/SDH. Management per primary team CHF POA: Yes Assessment and Plan - Chronic, Diastolic and Systolic CHF - continue Coreg, But not on RAAS inhibition Therapy. Due to low BPs - IV Lasix X 24-48 hrs and then po If the patient is on DIAMOND inhibitors, she should have an at least 36 hr washout window before Entresto is initiated. - Strict I/O, daily weights, CHF diet. - Consult CHF clinic - Intake/Output Summary (Last 24 hours) at 04/11/18901 Last data filed at 04/11/18 0600 Gross per 24 hour Intake 180 ml Output 0 ml Net 180 ml - I educated the patient about hidden sources of sodium in the diet including canned food, frozen, ready to go meals; and asked her to refrain from using the same. I also asked that she should keep a track of her daily weights; and take an extra tablet of lasix for a weight gain of >3 lbs in a day. SIGNATURE: Chacorta Chance MD PATIENT NAME: Ifeoma Ashraf DATE: April 11, 2018 TIME: 9:02 AM PAGER/CONTACT #: [phone] PROGRESS Observed: 04/11/2018 Status: COMPLETED Source: [place] 8:00 AM [facility] OTHER CAMPUS REPOSITORY O ID: [id number] Author: Val Ortiz Service: Hospital Medicine Author Type: Physician Type: Progress Notes Filed: 04/11/2018 8:08 PM Note Text: DEPARTMENT OF HOSPITAL MEDICINE PROGRESS NOTE Patient Name: Ifeoma Ashraf Admission Date: 04/07/2018 Service Date: 04/11/2018 Service Time: 8:00 PM Hospital Medicine Attending: Val Ortiz MD. FACP ? NIGHT AND WEEKEND COVERAGE: After 7pm, please call cross cover pager #[phone] SUBJECTIVE: Pt seen and examined by the bedside. BP 110/71 Pulse 83 Temp (Src) 98.6 (Oral) Resp 18 Ht 5' 6 (1.68m) Wt 225 lb 5 oz (102.2kg) SpO2 99% LMP 06/06/2006 BMI 36.38 kg/(m2). General: She is crying CV - RRR S1 S2, No M/R/G RESP -Grossly clear ABD - soft, NT, ND +BS EXT - peripheral edema NEURO - CN II-XII grossly intact DATA: Diagnostic tests reviewed for today's visit: Lab Results Component Value Date NA 136 04/11/2018 K 3.2 (L) 04/11/2018 CHLOR 97 (L) 04/11/2018 CO2 32 04/11/2018 ANION 10 04/11/2018 BUN 7 04/11/2018 CREAT 0.70 04/11/2018 GLUC 97 04/11/2018 TPROT 4.9 (L) 04/07/2018 CA 8.7 04/11/2018 ALB 2.3 (L) 04/07/2018 P 2.7 04/07/2018 MG 1.5 (L) 04/07/2018 TBILI 2.8 (H) 04/07/2018 ALKPHOS 73 04/07/2018 ALT 19 04/07/2018 AST 51 (H) 04/07/2018 INR 1.56 04/11/2018 WBC 7.00 04/11/2018 HB 10.6 (L) 04/11/2018 LACT 1.5 04/07/2018 FE 83 08/31/2013 RAISA 205.1 (H) 08/31/2013 BNP 131 (H) 07/14/2011 PBNP 144 (H) 05/06/2014 MEDICATIONS: Reviewed Current hospital medications: pill lens generator (patient-specific) 1 Each Miscell. (Med.Supl.;Non- Drugs) PRN [START ON 04/12/2018] metOLAzone 2.5 mg tab(s) (ZAROXOLYN) 2.5 mg ORAL q 48 HR furosemide 10 mg injection (LASIX) 10 mg INTRAVENOUS DAILY simethicone, chewable 80 mg tab(s) (MYLICON) 80 mg ORAL QID PRN bisacodyl 10 mg suppository (DULCOLAX) 10 mg RECTAL DAILY PRN acetaminophen 325-650 mg tab(s) (TYLENOL) 325-650 mg ORAL q 6 H PRN atorvastatin 10 mg tab(s) (LIPITOR) 10 mg ORAL AT BEDTIME folic acid 1 mg tab(s) 1 mg ORAL BID pantoprazole DR 40 mg tab(s) (PROTONIX) 40 mg ORAL DAILY (6 AM) melatonin 3 mg tab(s) 3 mg ORAL AT BEDTIME levothyroxine 75 mcg tab(s) (SYNTHROID) 75 mcg ORAL BEFORE BREAKFAST DAILY dextrose 40 % 15 g 15 g ORAL PRN glucagon 1 mg injection (GLUCAGEN) 1 mg INTRAMUSCULAR PRN dextrose 50% in water 25 mL syringe 12.5 g INTRAVENOUS PRN carvedilol 3.125 mg tab(s) (COREG) 3.125 mg ORAL BID w MEALS cefTRIAXone iv piggyback 1 g in dextrose (iso-osmotic) 50 mL (ROCEPHIN) 1 g INTRAVENOUS q 24 H digoxin 0.125 mg tab(s) (LANOXIN) 0.125 mg ORAL DAILY dextrose 5% in NaCl 0.9% iv infusion 75 mL/hr INTRAVENOUS CONTINUOUS lamoTRIgine 200 mg tab(s) (LaMICtal) 200 mg ORAL AT BEDTIME levETIRAcetam iv piggyback 500 mg in NaCl (iso-osmotic) 100 mL (KEPPRA) 500 mg INTRAVENOUS BID ASSESSMENT Active Problems: Implantable cardioverter-defibrillator (ICD) in situ LV dysfunction Obesity Altered mental state Lactic acidosis SDH (subdural hematoma) (HCC) Coagulopathy (HCC) Encephalopathy Obesity, Class II, BMI 35-39.9 Chronic combined systolic and diastolic CHF (congestive heart failure) ([facility]) Resolved Problems: * No resolved hospital problems. * BP 110/71 Pulse 83 Temp 37 ?C (98.6 ?F) (Oral) Resp 18 Ht 167.6 cm (5' 6) Wt 102.2 kg (225 lb 5 oz) LMP 06/06/2006 SpO2 99% BMI 36.37 kg/m? Lab Results Component Value Date HB 10.6 (L) 04/11/2018 WBC 7.00 04/11/2018 PLT 164 (L) 04/11/2018 NA 136 04/11/2018 K 3.2 (L) 04/11/2018 CO2 32 04/11/2018 CREAT 0.70 04/11/2018 INR 1.56 04/11/2018 Lab Results Component Value Date HBA1C 6.1 (H) 08/26/2009 GLUCOSEMETER 175 (H) 04/11/2018 GLUCOSEMETER 119 (H) 04/11/2018 GLUCOSEMETER 92 04/11/2018 GLUCOSEMETER 98 04/10/2018 GLUCOSEMETER 93 04/10/2018 PLAN: -Patient with advanced underlying cardiomyopathy admitted with SDH to NSICU, later transferred to floor. Repeat CT were stable but she continue to be having periods to confusion and emotional crying intermittently. Although she has some peripheral edema but actually she is not in acute CHF or volume overload. Her BP runs low and intravascularly she is depleted, no signs of acute pulmonary edema on recent CXR and on exam, Sat 100 % on room air.. At this time I will favor to keep IVF on 75 ml/hr and will keep lowest possible dose of lasix (to keep her out of acute deompensation) and keep it every other day as she is very well compensated and actually intravascularly volume depleted with low bp, also will continue to hold ACEi/ARBs for now. Strict I/Os Daily weight CHF core measures emphasized -Plan is PT/OT and Optimization of CHF meds prior to facility discharge -Patient's vitals, labs, chemistry, imaging, micro and other reports were reviewed -Current medications were reviewed and adjusted as needed. -Will continue rest of management with current medications and monitoring -HTN: stable -Follow AM labs -Plan of care D/W -Disposition: Facility -VTE prophylaxis 04/07/18 0230 pneumatic compression stockings ([place], [place]) 04/07/18 0215 vte pharmacologic prophylaxis contraindicated ([place]) 04/07/18 0215 activity - mobilize patient ([place]) VTE Prophylaxis: VTE prophylaxis appropriate Treatment Team: Attending Provider: Val Ortiz Consulting: Karol Quintero Primary Service: Bart Coles Consulting: Negrito Ortiz MD. FACP 8:00 PM 04/11/2018 PROTIME Collected: 04/11/2018 Status: F Source: [facility] 6:39 AM [facility]ALTH SYSTEM REPOSITORY TYPE CODE TESTS RESULT OUT OF REFERENCE UNITS RANGE LAB PTI(LOINC) 9.3-11.9 sec Prothrombin High Time 15.4 LAB INR(LOINC) INR 1.56 Result Comment: Standard Therapy 2.0-3.0 High Dose 2.5-3.5 Performed By: #### PT #### [facility] [address] [place] [id number] HEMOGRAM Collected: 04/11/2018 Status: F Source: [facility] 6:39 [facility] REPOSITORY TYPE CODE TESTS RESULT OUT OF REFERENCE UNITS RANGE LAB WBC(LOINC) 3.98-10.04 thou/cmm WBC 7.00 LAB RBC(LOINC) 3.93-5.22 mil/cmm Low RBC 3.30 LAB HGB(LOINC) 11.2-15.7 g/dL Low Hgb 10.6 LAB HCT(LOINC) 34.1-44.9 % Low Hct 33.4 LAB MCV(LOINC) 79.4-94.8 fl High MCV 101.2 LAB MCH(LOINC) 25.6-32.2 pg MCH 32.1 LAB MCHC(LOINC) 31.6-34.8 % MCHC 31.7 LAB RDW(LOINC) 11.7-14.4 % High RDW 22.6 LAB RDWSD(LOINC 36.4-46.3 fl ) High RDW SD 83.1 LAB PLT(LOINC) 182-369 thou/cmm Low Platelet 164 LAB MPV(LOINC) 9.4-12.3 fl MPV 11.4 Performed By: #### CBC1 #### [facility] [address] [place] [id number] BASIC PANEL Collected: 04/11/2018 Status: F Source: [facility] 6:39 AM HEALTH SYSTEM REPOSITORY TYPE CODE TESTS RESULT OUT OF REFERENCE UNITS RANGE LAB NA(LOINC) 136-145 mEq/L Sodium Blood 136 LAB K(LOINC) 3.5-5.1 mEq/L Low Potassium Blood 3.2 LAB CL(LOINC) 98-107 mEq/L Low Chloride Blood 97 LAB CO2(LOINC) 21-32 mEq/L CO2 Blood 32 LAB GLU(LOINC) 70-99 mg/dL Glucose Blood 97 LAB BUN(LOINC) 7-18 mg/dL BUN Blood 7 LAB CREA(LOINC 0.51-0.95 mg/dL ) Creatinine Blood 0.70 LAB CA(LOINC) 8.5-10.1 mg/dL Calcium Blood 8.7 LAB ANGAP(LOIN 8-16 C) Anion Gap 10 Performed By: #### P8 #### [place] [id number] PROGRESS Observed: 04/10/2018 Status: COMPLETED Source: [facility] 8:10 PM CLINIC OTHER CAMPUS REPOSITORY O ID: [id number] Author: Val Ortiz Service: Hospital Medicine Author Type: Physician Type: Progress Notes Filed: 04/10/2018 8:19 PM Note Text: DEPARTMENT OF HOSPITAL MEDICINE PROGRESS NOTE Patient Name: Ifeoma Ashraf Admission Date: 04/07/2018 Service Date: 04/10/2018 Service Time: 8:13 PM Hospital Medicine Attending: Val Ortiz MD. FACP ? NIGHT AND WEEKEND COVERAGE: After 7pm, please call cross cover pager #[phone] SUBJECTIVE: Pt seen and examined by the bedside. She looks sick BP 112/74 Pulse 86 Temp (Src) 97.5 (Oral) Resp 18 Ht 5' 6 (1.68m) Wt 233 lb 4 oz (105.8kg) SpO2 98% LMP 06/06/2006 BMI 37.66 kg/(m2). General: She looks sick and is confused CV - RRR S1 S2, No M/R/G RESP -Grossly clear ABD - soft, NT, ND +BS EXT - no gross joint deformity, no clubbing, cyanosis, edema NEURO - CN II-XII grossly intact DATA: Diagnostic tests reviewed for today's visit: Lab Results Component Value Date NA 139 04/10/2018 K 3.4 (L) 04/10/2018 CHLOR 100 04/10/2018 CO2 28 04/10/2018 ANION 14 04/10/2018 BUN 8 04/10/2018 CREAT 0.65 04/10/2018 GLUC 87 04/10/2018 TPROT 4.9 (L) 04/07/2018 CA 8.6 04/10/2018 ALB 2.3 (L) 04/07/2018 P 2.7 04/07/2018 MG 1.5 (L) 04/07/2018 TBILI 2.8 (H) 04/07/2018 ALKPHOS 73 04/07/2018 ALT 19 04/07/2018 AST 51 (H) 04/07/2018 INR 1.51 04/10/2018 WBC 5.54 04/10/2018 HB 11.0 (L) 04/10/2018 LACT 1.5 04/07/2018 FE 83 08/31/2013 RAISA 205.1 (H) 08/31/2013 BNP 131 (H) 07/14/2011 PBNP 144 (H) 05/06/2014 MEDICATIONS: Reviewed Current hospital medications: potassium chloride ER 40 mEq tab(s) (K-DUR, KLOR-CON) 40 mEq ORAL BID furosemide 10 mg injection (LASIX) 10 mg INTRAVENOUS q 12 H 6a/6p metOLAzone 2.5 mg tab(s) (ZAROXOLYN) 2.5 mg ORAL DAILY acetaminophen 325-650 mg tab(s) (TYLENOL) 325-650 mg ORAL q 6 H PRN atorvastatin 10 mg tab(s) (LIPITOR) 10 mg ORAL AT BEDTIME folic acid 1 mg tab(s) 1 mg ORAL BID pantoprazole DR 40 mg tab(s) (PROTONIX) 40 mg ORAL DAILY (6 AM) melatonin 3 mg tab(s) 3 mg ORAL AT BEDTIME levothyroxine 75 mcg tab(s) (SYNTHROID) 75 mcg ORAL BEFORE BREAKFAST DAILY dextrose 40 % 15 g 15 g ORAL PRN glucagon 1 mg injection (GLUCAGEN) 1 mg INTRAMUSCULAR PRN dextrose 50% in water 25 mL syringe 12.5 g INTRAVENOUS PRN carvedilol 3.125 mg tab(s) (COREG) 3.125 mg ORAL BID w MEALS cefTRIAXone iv piggyback 1 g in dextrose (iso-osmotic) 50 mL (ROCEPHIN) 1 g INTRAVENOUS q 24 H digoxin 0.125 mg tab(s) (LANOXIN) 0.125 mg ORAL DAILY dextrose 5% in NaCl 0.9% iv infusion 25 mL/hr INTRAVENOUS CONTINUOUS lamoTRIgine 200 mg tab(s) (LaMICtal) 200 mg ORAL AT BEDTIME levETIRAcetam iv piggyback 500 mg in NaCl (iso-osmotic) 100 mL (KEPPRA) 500 mg INTRAVENOUS BID ASSESSMENT Active Problems: Implantable cardioverter-defibrillator (ICD) in situ LV dysfunction Obesity Altered mental state Lactic acidosis SDH (subdural hematoma) (HCC) Coagulopathy (HCC) Encephalopathy Obesity, Class II, BMI 35-39.9 Resolved Problems: * No resolved hospital problems. * BP 112/74 Pulse 86 Temp 36.4 ?C (97.5 ?F) (Oral) Resp 18 Ht 167.6 cm (5' 6) Wt 105.8 kg (233 lb 4 oz) LMP 06/06/2006 SpO2 98% BMI 37.65 kg/m? Lab Results Component Value Date HB 11.0 (L) 04/10/2018 WBC 5.54 04/10/2018 PLT 144 (L) 04/10/2018 NA 139 04/10/2018 K 3.4 (L) 04/10/2018 CO2 28 04/10/2018 CREAT 0.65 04/10/2018 INR 1.51 04/10/2018 Lab Results Component Value Date HBA1C 6.1 (H) 08/26/2009 GLUCOSEMETER 93 04/10/2018 GLUCOSEMETER 89 04/10/2018 GLUCOSEMETER 96 04/10/2018 GLUCOSEMETER 124 (H) 04/09/2018 GLUCOSEMETER 163 (H) 04/09/2018 PLAN: -Patient down graded from ICU with ICH -She continue to be confused -Repeat CT is stable -Neuro Surgery following, -EF 15% Cardiology consulted for Heart failure -Problem is she is intravascularly depleted with third spacing of fluids mainly in lungs plus her bp is very labile to small dose of diuretics. -Will lower the dose of lasix further and will consult Cardiology -Straight cath -CHF core measures emphasized -Strict I/Os -Will replace K -Repeat cxr shows cardiomegaly with interstitial markings, does not appear to be emelina cute overload -Much emotional support and counselling provided -Patient's vitals, labs, chemistry, imaging, micro and other reports were reviewed -Current medications were reviewed and adjusted as needed. -Will continue rest of management with current medications and monitoring -HTN: Stable -Follow AM labs -Plan of care D/W patient and mother -Disposition: TBD -VTE prophylaxis 04/07/18 0230 pneumatic compression stockings ([place], [place]) 04/07/18 0215 vte pharmacologic prophylaxis contraindicated ([place]) 04/07/18 0215 activity - mobilize patient ([place]) VTE Prophylaxis: VTE prophylaxis appropriate Treatment Team: Attending Provider: Val Ortiz Consulting: Karol Quintero Primary Service: [facility] [employer]ink[employer]endo Consulting: Negrito Ortiz MD. FACP 8:13 PM 04/10/2018 US DVT LOWER BILATERAL Observed: 04/10/2018 Status: F Source: [facility] 5:27 PM HEALTH SYSTEM REPOSITORY Performed at [facility] APPROVED BY: Chidi Perez MD BILATERAL LOWER EXTREMITY VENOUS ULTRASOUND STUDY WITH COLOR AND DUPLEX DOPPLER WITH SPECTRAL ANALYSIS: CLINICAL INDICATION: Bilateral lower extremity swelling. COMPARISON: None. Real-time andrade scale imaging of the right and left external iliac, common femoral, femoral, popliteal, posterior tibial and peroneal veins reveals vessel wall compression under ultrasound guidance witho ut definitive evidence of acute intraluminal thrombus. Color and duplex Doppler with spectral analysis demonstrates spontaneous blood flow, phasicity and augmentation. IMPRESSION: No evidence of acute DVT. CHEST 1 VIEW Observed: 04/10/2018 Status: F Source: [facility] 2:50 PM HEALTH SYSTEM REPOSITORY Performed at [facility] APPROVED BY: Aleida Quijano MD EXAM TITLE: CHEST 1 VIEW DATE: 04/10/2018 14:41 INDICATION: Cough and dyspnea COMPARISON: 06/22/2006 FINDINGS: There is an implantable defibrillator with the battery pack obscuring a portion of the mid left lung. The heart is mildly enlarged. Within the limitations of the exam, the lungs are clear. Bony structures are intact. IMPRESSION: Cardiomegaly without acute process otherwise. Defibrillator is noted. CASE MANAGEM Observed: 04/10/2018 Status: COMPLETED Source: [facility] 2:14 PM [facility] REPOSITORY HNO ID: [id number] Author: Francy MckeonRn) NAHUM Kaur Service: Care Management Author Type: Registered Nurse Type: Care Mgt Progress Note Filed: 04/10/2018 2:14 PM Note Text: CARE MANAGEMENT PROGRESS NOTE SERVICE DATE: 04/10/2018 SERVICE TIME: 2:14 PM LOS: 3 days [facility] cannot accept back, Met with mother BS and she wants [facility]. Will cont to follow. . SIGNATURE: Francy Kaur RN PATIENT NAME: Ifeoma Ashraf DATE: April 10, 2018 TIME: 2:14 PM PAGER/CONTACT #: [phone] PROGRESS Observed: 04/10/2018 Status: COMPLETED Source: [facility] 11:07 AM [facility] REPOSITORY HNO ID: [id number] Author: LISETTE Reeder (Pa) Service: Neurosurgery Author Type: Physician Matcher Operator Type: Progress Notes Filed: 04/10/2018 11:10 AM Note Text: CTH repeated - not read but appears stable from the 13th No changes in MS from baseline confusion Remains nonsurgical - will so - call with questions LISETTE Reeder NURSING PROG Observed: 04/10/2018 Status: COMPLETED Source: [facility] 11:07 AM [facility] REPOSITORY HNO ID: [id number] Author: Elsie MckeonRnHenrik Nye RN Service: Nursing Author Type: Registered Nurse Type: Nursing Progress Note Filed: 04/10/2018 1:00 PM Note Text: Nursing Progress Note Patient Name: Ifeoma Ashraf Patient Location: [id number]/[place] [address]* Daily Note: Text page sent to Dr. Ortiz about low bp, no new orders at this time. This note was completed by: Elsie Nye RN CT HEAD W/O CONTRAST Observed: 04/10/2018 Status: F Source: [facility] 10:28 AM HEALTH SYSTEM REPOSITORY Performed at [facility] APPROVED BY: Denilson Patino MD EXAMINATION: CT HEAD WITHOUT CONTRAST CLINICAL HISTORY: Intracranial hemorrhage. TECHNIQUE: Serial axial images without IV contrast were obtained from the vertex to the foramen magnum. MQ: CTBWO_[id number] CT Dose-Length Product (DLP): 828.43 mGy*cm CT Dose Reduction Employed: No dose reduction techniques were required. COMPARISON: CT head 04/07/2018. RESULT: Post-operative change: None. Acute change: No evidence of an acute infarct or other acute parenchymal process. Hemorrhage: Small subacute-chronic subdural hemorrhage along the right cerebral convexity is unchanged. There is minimal acute subdural hemorrhage along the posterior right interhemispheric falx fransisco t is minimally larger or new but still measures only 1-2 mm in dimension. Mass Lesion / Mass Effect: There is only minimal mass effect on the right cerebral convexity due to the subdural hemorrhage. No midline shift. No definite intracranial mass. Chronic change: None apparent. Parenchyma: There is no significant volume loss. The brain parenchyma is otherwise within normal limits for age. Ventricles: The ventricles are within normal limits of size and configuration for age. Paranasal sinuses and skull base: The visualized paranasal sinuses are grossly clear. The skull base and imaged soft tissues are unremarkable. IMPRESSION: Minimal acute subdural hemorrhage along the posterior right interhemispheric falx is new or minimally larger. Stable small subacute-chronic subdural hemorrhage along the right cerebral convexity with only minimal mass effect. NURSING PROG Observed: 04/10/2018 Status: COMPLETED Source: [facility] 5:27 AM CLINIC OTHER CAMPUS REPOSITORY HNO ID: [id number] Author: Isabella Sharpe) NAHUM Shin Service: (none) Author Type: Registered Nurse Type: Nursing Progress Note Filed: 04/10/2018 7:04 AM Note Text: Nursing Progress Note Patient Name: Ifeoma Ashraf Patient Location: [id number]/[id number]* Daily Note: Pt noted to have temp of 36.2 axillary, unable to obtain oral d/t confusion. Temp is at baseline since admission however pt is cold to the touch and cap refill bilateral upper extremities sluggish. Blankets applied and Sound notified. Orders to recheck temp in 2 hours. Recheck 36.3. BP 100/64, ok to give Lasix and to hold Coreg for 2 hours after bp check, per Sound. Sound also informed of patients inability to take PO pills this morning as pt is not comprehending the command to swallow. No further orders r/t swallowing at this time. This note was completed by: Isabella Shin RN HEMOGRAM Collected: 04/10/2018 Status: F Source: [facility] 5:10 AM HEALTH SYSTEM REPOSITORY TYPE CODE TESTS RESULT OUT OF REFERENCE UNITS RANGE LAB WBC(LOINC) 3.98-10.04 thou/cmm WBC 5.54 LAB RBC(LOINC) 3.93-5.22 mil/cmm Low RBC 3.40 LAB HGB(LOINC) 11.2-15.7 g/dL Low Hgb 11.0 LAB HCT(LOINC) 34.1-44.9 % Hct 35.7 LAB MCV(LOINC) 79.4-94.8 fl High MCV 105.0 LAB MCH(LOINC) 25.6-32.2 pg High MCH 32.4 LAB MCHC(LOINC) 31.6-34.8 % Low MCHC 30.8 LAB RDW(LOINC) 11.7-14.4 % High RDW 22.7 LAB RDWSD(LOINC 36.4-46.3 fl ) High RDW SD 87.6 LAB PLT(LOINC) 182-369 thou/cmm Low Platelet 144 LAB MPV(LOINC) 9.4-12.3 fl MPV 11.6 Performed By: #### CBC1 #### [facility] [address] [place] [id number] PROTIME Collected: 04/10/2018 Status: F Source: [facility] 5:10 AM HEALTH SYSTEM REPOSITORY TYPE CODE TESTS RESULT OUT OF REFERENCE UNITS RANGE LAB PTI(LOINC) 9.3-11.9 sec Prothrombin High Time 14.9 LAB INR(LOINC) INR 1.51 Result Comment: Standard Therapy 2.0-3.0 High Dose 2.5-3.5 Performed By: #### PT #### [facility] [address] [place] [address] BASIC PANEL Collected: 04/10/2018 Status: F Source: [facility] 5:10 AM HEALTH SYSTEM REPOSITORY TYPE CODE TESTS RESULT OUT OF REFERENCE UNITS RANGE LAB NA(LOINC) 136-145 mEq/L Sodium Blood 139 LAB K(LOINC) 3.5-5.1 mEq/L Low Potassium Blood 3.4 LAB CL(LOINC) 98-107 mEq/L Chloride Blood 100 LAB CO2(LOINC) 21-32 mEq/L CO2 Blood 28 LAB GLU(LOINC) 70-99 mg/dL Glucose Blood 87 LAB BUN(LOINC) 7-18 mg/dL BUN Blood 8 LAB CREA(LOINC 0.51-0.95 mg/dL ) Creatinine Blood 0.65 LAB CA(LOINC) 8.5-10.1 mg/dL Calcium Blood 8.6 LAB ANGAP(LOIN 8-16 C) Anion Gap 14 Performed By: #### P8 #### [facility] [address] [place] [id number] FOOT 3V AP/LAT/OBL Observed: 04/09/2018 Status: F Source: [facility] 7:38 PM HEALTH SYSTEM REPOSITORY Performed at [facility] APPROVED BY: Aleida Quijaon MD EXAM TITLE: FOOT 3V AP/LAT/OBL LEFT DATE: 04/09/2018 19:31 INDICATION: Left foot pain secondary to a fall COMPARISON: None. FINDINGS: There is diffuse soft tissue swelling. There is no acute fracture or dislocation. Prominent spurs are noted at the calcaneus. The joint spaces are maintained. IMPRESSION: Soft tissue swelling without acute fracture. Heel spur. PROGRESS Observed: 04/09/2018 Status: COMPLETED Source: [facility] 10:33 AM CLINIC OTHER CAMPUS REPOSITORY HNO ID: [id number] Author: Bebeto Oconnell Service: Neurosurgery Author Type: Physician Type: Progress Notes Filed: 04/09/2018 10:35 AM Note Text: Neurosurgery : Pt feeling well. No ALMEIDA. No Neuro deficit. We had checked her for small Hygroma R hemisphere. Will Have A CT scan tomorrow as F/U. Bebeto Oconnell MD PROGRESS Observed: 04/09/2018 Status: COMPLETED Source: [facility] 9:35 AM CLINIC OTHER CAMPUS REPOSITORY HNO ID: [id number] Author: Val Ortiz Service: Hospital Medicine Author Type: Physician Type: Progress Notes Filed: 04/09/2018 4:56 PM Note Text: DEPARTMENT OF HOSPITAL MEDICINE PROGRESS NOTE Patient Name: Ifeoma Ashraf Admission Date: 04/07/2018 Service Date: 04/09/2018 Service Time: 4:53 PM Hospital Medicine Attending: Val Ortiz MD. FACP ? NIGHT AND WEEKEND COVERAGE: After 7pm, please call cross cover pager #[phone] SUBJECTIVE: Pt seen and examined by the bedside. BP 110/54 Pulse 80 Temp (Src) 97.9 (Oral) Resp 18 Ht 5' 6 (1.68m) Wt 225 lb 15.5 oz (102.5kg) SpO2 100% LMP 06/06/2006 BMI 36.49 kg/(m2). General: Patient is confused and looks sick, she has marked pedal edema. She is undergoing EEG CV - RRR S1 S2, No M/R/G RESP -Grossly clear ABD - soft, NT, ND +BS EXT - edema NEURO - CN II-XII grossly intact DATA: Diagnostic tests reviewed for today's visit: Lab Results Component Value Date NA 144 04/09/2018 K 3.4 (L) 04/09/2018 CHLOR 104 04/09/2018 CO2 28 04/09/2018 ANION 15 04/09/2018 BUN 9 04/09/2018 CREAT 0.60 04/09/2018 GLUC 104 (H) 04/09/2018 TPROT 4.9 (L) 04/07/2018 CA 8.7 04/09/2018 ALB 2.3 (L) 04/07/2018 P 2.7 04/07/2018 MG 1.5 (L) 04/07/2018 TBILI 2.8 (H) 04/07/2018 ALKPHOS 73 04/07/2018 ALT 19 04/07/2018 AST 51 (H) 04/07/2018 INR 1.57 04/08/2018 WBC 6.67 04/09/2018 HB 10.0 (L) 04/09/2018 LACT 1.5 04/07/2018 FE 83 08/31/2013 RAISA 205.1 (H) 08/31/2013 BNP 131 (H) 07/14/2011 PBNP 144 (H) 05/06/2014 MEDICATIONS: Reviewed Current hospital medications: potassium chloride ER 40 mEq tab(s) (K-DUR, KLOR-CON) 40 mEq ORAL BID furosemide 20 mg injection (LASIX) 20 mg INTRAVENOUS q 12 H 6a/6p metOLAzone 2.5 mg tab(s) (ZAROXOLYN) 2.5 mg ORAL DAILY atorvastatin 10 mg tab(s) (LIPITOR) 10 mg ORAL AT BEDTIME folic acid 1 mg tab(s) 1 mg ORAL BID pantoprazole DR 40 mg tab(s) (PROTONIX) 40 mg ORAL DAILY (6 AM) melatonin 3 mg tab(s) 3 mg ORAL AT BEDTIME levothyroxine 75 mcg tab(s) (SYNTHROID) 75 mcg ORAL BEFORE BREAKFAST DAILY dextrose 40 % 15 g 15 g ORAL PRN glucagon 1 mg injection (GLUCAGEN) 1 mg INTRAMUSCULAR PRN dextrose 50% in water 25 mL syringe 12.5 g INTRAVENOUS PRN carvedilol 3.125 mg tab(s) (COREG) 3.125 mg ORAL BID w MEALS cefTRIAXone iv piggyback 1 g in dextrose (iso-osmotic) 50 mL (ROCEPHIN) 1 g INTRAVENOUS q 24 H digoxin 0.125 mg tab(s) (LANOXIN) 0.125 mg ORAL DAILY dextrose 5% in NaCl 0.9% iv infusion 25 mL/hr INTRAVENOUS CONTINUOUS lamoTRIgine 200 mg tab(s) (LaMICtal) 200 mg ORAL AT BEDTIME levETIRAcetam iv piggyback 500 mg in NaCl (iso-osmotic) 100 mL (KEPPRA) 500 mg INTRAVENOUS BID ASSESSMENT Active Problems: Implantable cardioverter-defibrillator (ICD) in situ LV dysfunction Obesity Altered mental state Lactic acidosis SDH (subdural hematoma) (HCC) Coagulopathy (HCC) Encephalopathy Obesity, Class II, BMI 35-39.9 Resolved Problems: * No resolved hospital problems. * BP 110/54 Pulse 80 Temp 36.6 ?C (97.9 ?F) (Oral) Resp 18 Ht 167.6 cm (5' 6) Wt 102.5 kg (225 lb 15.5 oz) LMP 06/06/2006 SpO2 100% BMI 36.47 kg/m? 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, Pulmonary HTN, HTN, DM, ALEJANDRO, DVTs, admitted to MICU with AMS, Suspected sepsis, CT showed subacute to chronic hematoma, elevated INR on admission -In ICU she was started on prophylactic Keppra, Eliquis put on Hold , received FFP 04/07 for elevated INR -Continue Statin, Carvedilol, Digoxin, Lamictal, Keppra, Synthroid, Protonix, Ceftriaxone -Neurology and Critical Care following -Resumed lasix and Metolazone which she was using at home NS plan to repeat CT head tomorrow -Await neuro recs when to stop prophylactic anti-seizure meds -May need Cardiology evaluation Echo Final Impressions: Left [facility] left atrium appears moderately dilated in size. EUSEBIA is 41.76 ml/m2. Right Ventricle Normal right ventricular size and systolic function. A pacemaker/defibrillator wire is visualized in the right ventricle. Mitral Valve Moderate (2+) mitral valve regurgitation. Mitral regurgitataion appears to be due to annular dilation and apical tethering. Tricuspid Valve Mild (1+) tricuspid valve regurgitation. Right ventricular systolic pressure is estimated at 43 mmHg. Moderate pulmonary hypertension. Vena Cava The inferior vena cava is dilated and does not collapse > 50% with inspiration. Right atrial pressure is estimated at 15 mmHg. Left Ventricle Severe left ventricular systolic dysfunction with a visual estimated LVEF of 25-30%. Wall motion abnormalities as mentioned below. Normal left ventricular wall thickness. Stage III to IV diastolic dysfunction: Restrictive filling pattern -Patient's vitals, labs, chemistry, imaging, micro and other reports were reviewed -Current medications were reviewed and adjusted as needed. -Will continue rest of management with current medications and monitoring -HTN: stable -Follow AM labs -Code: Full code -Plan of care D/W patient and RN -Disposition: TBD -VTE prophylaxis 04/07/18 0230 pneumatic compression stockings (dc,mn) 04/07/18 0215 vte pharmacologic prophylaxis contraindicated (dc,mn) 04/07/18 021 activity - mobilize patient ([place], [place]) VTE Prophylaxis: VTE prophylaxis appropriate Treatment Team: Attending Provider: Val Ortiz Consulting: Karol Quintero Primary Service: Bart Ortiz MD. FACP 4:53 PM 04/09/2018 HEMOGRAM Collected: 04/09/2018 Status: F Source: [facility] 5:00 AM HEALTH SYSTEM REPOSITORY TYPE CODE TESTS RESULT OUT OF REFERENCE UNITS RANGE LAB WBC(LOINC) 3.98-10.04 thou/cmm WBC 6.67 LAB RBC(LOINC) 3.93-5.22 mil/cmm Low RBC 3.08 LAB HGB(LOINC) 11.2-15.7 g/dL Low Hgb 10.0 LAB HCT(LOINC) 34.1-44.9 % Low Hct 32.0 LAB MCV(LOINC) 79.4-94.8 fl High MCV 103.9 LAB MCH(LOINC) 25.6-32.2 pg High MCH 32.5 LAB MCHC(LOINC) 31.6-34.8 % Low MCHC 31.3 LAB RDW(LOINC) 11.7-14.4 % High RDW 23.1 LAB RDWSD(LOINC 36.4-46.3 fl ) High RDW SD 87.1 LAB PLT(LOINC) 182-369 thou/cmm Low Platelet 141 LAB MPV(LOINC) 9.4-12.3 fl MPV 10.9 Performed By: #### CBC1 #### [address] [address] BASIC PANEL Collected: 04/09/2018 Status: F Source: [facility] 5:00 AM HEALTH SYSTEM REPOSITORY TYPE CODE TESTS RESULT OUT OF REFERENCE UNITS RANGE LAB NA(LOINC) 136-145 mEq/L Sodium Blood 144 LAB K(LOINC) 3.5-5.1 mEq/L Low Potassium Blood 3.4 LAB CL(LOINC) 98-107 mEq/L Chloride Blood 104 LAB CO2(LOINC) 21-32 mEq/L CO2 Blood 28 LAB GLU(LOINC) 70-99 mg/dL Glucose High Blood 104 LAB BUN(LOINC) 7-18 mg/dL BUN Blood 9 LAB CREA(LOINC 0.51-0.95 mg/dL ) Creatinine Blood 0.60 LAB CA(LOINC) 8.5-10.1 mg/dL Calcium Blood 8.7 LAB ANGAP(LOIN 8-16 C) Anion Gap 15 Performed By: #### P8 #### [place] [address] CONSULT PROG Observed: 04/08/2018 Status: COMPLETED Source: [place] 11:11 PM [facility] OTHER [place] REPOSITORY HNO ID: [id number] Author: Najma Hawk Service: Neurology Author Type: Nurse Practitioner Type: Consult Progress Note Filed: 04/08/2018 11:13 PM Note Text: Patient out of MICU. Dr Matt dey noted: goal to keep INR <1.4 and repeat CTH if change mental status or exam. Will follow peripherally. Please call with concerns. Dispo when OK with hem/onc, NS, primary team NURSING PROG Observed: 04/08/2018 Status: COMPLETED Source: [place] 7:00 PM [facility] OTHER [place] REPOSITORY HNO ID: [id number] Author: Harshal (Rn) NAHUM Arana Service: Nursing Author Type: Registered Nurse Type: Nursing Progress Note Filed: 04/08/2018 7:26 PM Note Text: Nursing Progress Note Patient Name: Ifeoma Ashraf Patient Location: [place] [address]/[place] [address]* Transfer Note: Patient transferred into room/unit 5425 in stable condition. Actions taken: Report given/called to 5400 RN. No futher actions taken at this time. Will continue to monitor and check with patient. Patient belongings with patient. This note was completed by: Harshal Arana RN PROGRESS Observed: 04/08/2018 Status: COMPLETED Source: [place] 12:44 PM CLINIC OTHER CAMPUS REPOSITORY HNO ID: [id number] Author: Yann Wilder Service: Critical Care Author Type: Physician Type: Progress Notes Filed: 04/08/2018 12:53 PM Note Text: [facility] STAFF PHYSICIAN NOTE OF PERSONAL INVOLVEMENT IN CARE I have reviewed the documentation by the resident/ KATERINA and I personally participated in the lopez components. I have discussed the case and management of the patient's care. Patient seen and examined. The following comments revise or confirm relevant lopez components of the note. Data: Ct head stable Alert. Stark Post vit k , ffp Limited iv access, US used by resident for another HEAD CT NOTED REVIEWED Neurosurgery and NeuroIntensivist notes ASS: 1. Lactic acidosis without shock but cmp and metformin, now normal 2. Severe CMP EF 15% ; borderline willian with low dig/bblocker coreg; now EF 25% better! 3. 7 mm SDH , minimal radiologic shift. No coma, no SZ, not focal 4. Minor trauma ?ECF 5. AICD 6. ?coagulopathy INR 2.5 at [facility]; then 1.7 now 1.57 , ?DIETARY ?liver; off NOAC; plt 94 7. NHL, hx TSCtx 8. Hx LUE DVT due ?aicd, cmp ,pafib Plan: 1. Can give FFP per Neuro rec'S TO TRY reduce inr however # 2 ct and exam stable against ACTIVE bleeding and THE known INR of FFP from blood bank is often =1.4 equivalent , so wont correct much from 1.5 LEVEL 2. Diet 3. Iv access secured 4. Low coreg, off ARB 5. EEG to conclude; keppra 6. Potassium po 7. OFF NOAC Critical Care Documentation: The patient has the following organ/system impairment(s): Acute blood loss, Encephalopathy and Severe electrolyte imbalance Appropriate adjustments will be made based on available data and information Discussed with staff/ patient/ family This patient has a high probability of sudden, clinically significant deterioration, which requires the highest level of physician preparedness to intervene urgently. I managed/supervised life or organ supporting interventions that required frequent physician assessment. I devoted my full attention to the direct care of this patient for the amount of time indicated below. Time I spent with family or surrogate(s) is included only if the patient was incapable of providing the necessary information or participating in medical decision making. Time devoted to teaching is not included. Time spent providing critical care services: 30 minutes excluding procedures. SIGNATURE: Yann Wilder MD [facility] TIME of SERVICE: 12:44 PM PROGRESS Observed: 04/08/2018 Status: COMPLETED Source: [place] 10:03 AM CLINIC OTHER CAMPUS REPOSITORY O ID: [id number] Author: Aden Gutierrez Service: Critical Care Author Type: Physician Type: Progress Notes Filed: 04/08/2018 10:09 AM Note Text: SERVICE DATE: 04/08/2018 SERVICE TIME: 10:03 AM NICU CONSULT PROGRESS NOTE Admission Date: 04/07/2018 Hospital Day # 1 SUBJECTIVE Interval HPI: Improved OBJECTIVE Vital Signs (last filed) Range in last 24h Temp: 37.3 ?C (99.1 ?F) (04/08/18399) Temp Min: 35.5 ?C (95.9 ?F) Max: 37.3 ?C (99.1 ?F) Pulse: 81 (04/08/18823) Pulse Min: 58 Max: 92 Resp: 16 (04/08/18699) Resp Min: 14 Max: 25 BP: 103/69 (04/08/18823) BP Min: 75/43 Max: 111/63 MAP Non Invasive (Mean Arterial Pressure): 66 (04/08/18699) MAP Non Invasive (Mean Arterial Pressure) Min: 55 Max: 84 No Data Recorded SpO2: 96 % (04/08/18699) SpO2 Min: 78 % Max: 100 % Pain Score: 0/10 (04/08/18552) Fluid Balance: Intake/Output Summary (Last 24 hours) at 04/08/18 0659 Last data filed at 04/08/18552 Gross per 24 hour Intake 1586 ml Output 150 ml Net 1436 ml Last Weight: 106.3 kg (234 lb 5.6 oz) (04/08/18399) Admit Weight: 101.2 kg (223 lb 1.7 oz) (04/07/18 0122) DIET LIQUID Lines, Drains, and Airways Line Peripheral 04/07/18 0150 Assessment Short Right Wrist 22 Gauge 1 day Vent/Oxygen: Supplemental Oxygen: No No Data Recorded Physical Examination Performed Oral Mucosa: Moist mucous membranes Eyes: PERRLA Neck: Unremarkable; No adenopathy or JVD Cardiovascular: Murmur SM at apex and Gallop Respiratory: Rales bilat Abdomen: Soft, Nontender and Positive bowel sounds Extremities: Edema- yes Peripheral Pulses- Present all extremities Capillary Refill- less than 3 seconds Skin: Abnormalities- No Breakdown- No Neurologic: Awake, oriented, Follows commands and Moving all extremities , 4/5 in UE 3/5 in LE Infusion Medications D5-0.9 % NaCl Last Rate: 25 mL/hr (04/07/182119) Diagnostic tests reviewed today: Most recent labs and imaging results. CARE COORDINATION: No Patient Care Coordination Note on file. ASSESSMENT AND PLAN Assessment AND Plan, Hosp Problems our Service Addressed Neurology Encephalopathy Likely multi factorial cEEG monitoring - negative for seizure CT head reviewed. No surgical intervention keppra for 7 days SDH (subdural hematoma) (HCC) Sub acute to chronic hematoma Holding AC- last dose >72 hrs ago Close neuro monitoring Keppra for seizure prophylaxis Hematology Coagulopathy (HCC) PT INR Date Value Ref Range Status 08/26/2009 1.0 0.8 - 1.2 Final Comment: The PT/INR can be used to monitor the therapeutic effect of oral anticoagulants, such as warfarin. The recommended therapeutic range is an INR of 2.0 to 3.0 for most applications, including treatment and prevention of venous thrombosis, treatment of pulmonary embolism, prevention of strokes/TIA in patients with atrial fibrillation, prevention and treatment of thrombosis in patients with a lupus anticoagulant and prevention of systemic embolization in patients with heart valve disorders. There are certain conditions where clinicians may decide to use a lower or higher therapeutic range eg. 1.5 to 1.9 for secondary prevention of idiopathic venous thromboembolism and an INR 2.5 to 3.5 for older generation mechanical heart valves. Adam, et al. CHEST 2004: 126:204S to 233S. INR Date Value Ref Range Status 04/07/2018 1.75 Final Comment: Standard Therapy 2.0-3.0 High Dose 2.5-3.5 Platelet Count Date Value Ref Range Status 04/08/2018 114 (L) 182 - 369 thou/cmm Final APTT Date Value Ref Range Status 03/23/2007 28.9 24.6 - 32.8 sec Final Comment: The APTT can be used to monitor the therapeutic effect of heparin. The recommended therapeutic range for treatment of venous and arterial thrombosis with intravenous unfractionated heparin is 56 to 78 seconds, which corresponds to a heparin anti Xa activity level of 0.3 to 0.7 IU/ml. In patients with concomitant therapy with thrombolytic agents and/or platelet glycoprotein IIb/IIIa antagonists, the recommended therapeutic range is 50 to 67 seconds, corresponding to a heparin anti Xa activity level of 0.2 to 0.5 IU/ml. The APTT therapeutic range has been determined for the current lot of laboratory APTT reagent. Hold AC Though still need Vit K And or FFPF, Keep INR below 1.4 Daily INR 04/07/18 0230 pneumatic compression stockings (dc,mn) 04/07/18 0215 vte pharmacologic prophylaxis contraindicated ([place], [place]) 04/07/18 0215 activity - mobilize patient ([place], [place]) VTE Prophylaxis: Contraindicated bleeding risk Plan of care discussed with: MICU Team [facility] STAFF PHYSICIAN NOTE OF PERSONAL INVOLVEMENT IN CARE Consult recs: 1 . Keppra total 7 days 2. DC EEG 3: Daily INR, keep INR less than 1.4, 4: Hold anticoagulation - future need to be re evaluated with NSGY input 5. 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 All questions and concerns were answered and addressed at this juncture. This patient has a high probability of sudden, clinically significant deterioration, which requires the highest level of physician preparedness to intervene urgently. I managed/supervised life or organ supporting interventions that required frequent physician assessment. I devoted my full attention to the direct care of this patient for the amount of time indicated below. Time I spent with family or surrogate(s) is included only if the patient was incapable of providing the necessary information or participating in medical decision making. Time devoted to teaching and to any procedures I billed separately is not included. SIGNATURE: Aden Gutierrez MD PATIENT NAME: Ifeoma Ashraf DATE: April 08, 2018 TIME: 10:03 AM PAGER/CONTACT #: [phone] PROTIME Collected: 04/08/2018 Status: F Source: [facility] 8:45 AM HEALTH SYSTEM REPOSITORY TYPE CODE TESTS RESULT OUT OF REFERENCE UNITS RANGE LAB PTI(LOINC) 9.3-11.9 sec Prothrombin High Time 15.7 LAB INR(LOINC) INR 1.57 Result Comment: Standard Therapy 2.0-3.0 High Dose 2.5-3.5 Performed By: #### PT #### [place] [address] PROGRESS Observed: 04/08/2018 Status: COMPLETED Source: [place] 7:25 AM CLINIC OTHER CAMPUS REPOSITORY HNO ID: [id number] Author: Veronica Rosario MD Service: Critical Care Author Type: Resident Type: Progress Notes Filed: 04/08/2018 1:26 PM Note Text: Attestation signed by Yann Wilder at 04/08/2018 1:[address] wilder note today/ attestation MICU - PROGRESS NOTE SERVICE DATE: 04/08/2018 SERVICE TIME: 7:26 AM Admission Date: 04/07/2018 AGE: [age] year old LOS: 1 days Subjective REASON FOR ICU ADMISSION: AMS / encephalopathy 53 yr old female patient with hx of NHL SP SCT, Chronic HFrEF (15%) with ICD, HTN, DM2, ALEJANDRO, DVTs Admitted to MICU with AMS and suspected sepsis. Pt underwent Echo yesterday which showed Pacemaker/ defibrillator wire in RV, severe LV systolic function with LVEF of 25-30%, diastolic dysfunction and moderate pulmonary HTN. Also 2 units of FFP were transfused yesterday for INR of 1.75, consent was obtained from the mother on the phone. Pt had stable VS overnight and she was on NC with 97% o2 saturation. Her mental status is fluctuating as sometimes she follow commands but other she doesn't. She's awake and oriented at times to herself but not to place or time. She still has BL LL moderate pitting edema. Pt's labs today : Na 146, K 2.7, Cl 104, HCO3 34, BUN/Cr 10/0.6, Ca 8.3. Hb 8.8, MCV 104, WBC 5.22, PC 114. Objective PROBLEMS: ACTIVE PROBLEM LIST Other Malignant Lymphomas, Unspecified Site, Extranodal and Solid Organ Sites Complications of Bone Marrow Transplant (Hcc) Implantable Cardioverter-Defibrillator (Icd) in Situ Lv Dysfunction Obesity Sleep Apnea Chf (Congestive Heart Failure) (Hcc) Chronic Cholecystitis With Calculus Multinodular Goiter (Nontoxic) Altered Mental State Lactic Acidosis Sdh (Subdural Hematoma) (Hcc) Coagulopathy (Hcc) Encephalopathy Obesity, Class II, Bmi 35-39.9 PAST MEDICAL HISTORY Diagnosis Date - Allergic rhinitis, cause unspecified - CHF (congestive heart failure) (HCC) - Diabetes (HCC) type II, oral and injectable insulin - Essential hypertension, benign - Fibromyalgia - Hypothyroid - Non Hodgkin's lymphoma (HCC) - Obesity, unspecified - PMH - PAST MEDICAL HISTORY OF non hodgkins lymphoma, berkitts - Rheumatoid arthritis (HCC) - Sciatica PAST SURGICAL HISTORY Procedure Laterality Date - CATARACT EXTRACTION HX 09/2016 - DANDC, DIAG AND/OR THERAPEUTIC Dilation AND curettage - DEFIBRILLATOR SURGERY 10-10-2009 [facility] - EXTRACTION ERUPTED TOOTH/EXR wisdom teeth - LAMINECTOMY,THORACIC 2006 - LAP CHOLECYSTECT/CHOLANGIOGRAPHY 04-01-15 - PAST SURGICAL HISTORY OF Left 2003 heel spurs - PAST SURGICAL HISTORY OF 09/24/2013 heart catherization - THYROID FINE NEEDLE ASPIRATION 12/2015 Social History Marital status: Single Spouse name: Years of education: 16 Number of children: 0 Occupational History Occupation Employer Comment disability [employer] Social History Main Topics Smoking status: Never Smoker Smokeless tobacco: Never Used Alcohol use: No Drug use: No Sexual activity: No Comment: never SA VITAL SIGNS (last 24hrs min/max): Temp Av.9 ?C (96.6 ?F) Min: 35.5 ?C (95.9 ?F) Max: 37.3 ?C (99.1 ?F) Pulse Av.2 Min: 58 Max: 92 No Data Recorded Cuff BP Min: 75/43 Max: 111/63 Pain Score: 0/10 Vital signs reviewed. BP 91/55 Pulse 67 Temp (Src) 99.1 (Axillary) Resp 16 Ht 5' 6 (1.68m) Wt 234 lb 5.6 oz (106.3kg) SpO2 96% LMP 06/06/2006 BMI 37.84 kg/(m2). Temp (24hrs), Av.9 ?C (96.6 ?F), Min:35.5 ?C (95.9 ?F), Max:37.3 ?C (99.1 ?F) NET FLUID BALANCE Intake/Output Summary (Last 24 hours) at 04/08/18 0726 Last data filed at 04/08/18 0553 Gross per 24 hour Intake 1586 ml Output 150 ml Net 1436 ml MEDICATIONS Current Facility-Administered Medications: potassium chloride 80-120 mEq oral liquid 80-120 mEq ORAL/FEEDING TUBE PRN potassium chloride iv piggyback 20 mEq in sterile water 100 mL 20 mEq INTRAVENOUS PRN magnesium sulfate in water 2 g in sterile water 50 ml 2 g INTRAVENOUS PRN sodium phosphate 45 mmol in NaCl 0.9% 250 mL 45 mmol INTRAVENOUS PRN calcium gluconate 4 g in NaCl 0.9% 250 mL 4 g INTRAVENOUS PRN dextrose 40 % 15 g 15 g ORAL PRN Or glucagon 1 mg injection (GLUCAGEN) 1 mg INTRAMUSCULAR PRN Or dextrose 50% in water 25 mL syringe 12.5 g INTRAVENOUS PRN carvedilol 3.125 mg tab(s) (COREG) 3.125 mg ORAL BID w MEALS cefTRIAXone iv piggyback 1 g in dextrose (iso-osmotic) 50 mL (ROCEPHIN) 1 g INTRAVENOUS q 24 H digoxin 0.125 mg tab(s) (LANOXIN) 0.125 mg ORAL DAILY dextrose 5% in NaCl 0.9% iv infusion 25 mL/hr INTRAVENOUS CONTINUOUS insulin lispro pen (rapid acting) (HumaLOG KWIKPEN) SUBCUTANEOUS w MEALS lamoTRIgine 200 mg tab(s) (LaMICtal) 200 mg ORAL AT BEDTIME levETIRAcetam iv piggyback 500 mg in NaCl (iso-osmotic) 100 mL (KEPPRA) 500 mg INTRAVENOUS BID Lines, Drains, and Airways Line Peripheral 04/07/18 0150 Assessment Short Right Wrist 22 Gauge 1 day PHYSICAL EXAM PERFORMED: GENERAL: not alert, only oriented to self at times. Not cooperative SKIN: Skin color, texture, turgor normal. No rashes or lesions. LUNGS: Lungs clear to auscultation. No wheezes or crackles. Good air entry throughout. Good diaphragmatic excursion. CARDIAC: Regular rate and rhythm. Normal S1 and S2 ABDOMEN: Abdomen soft, non-tender, BS normal, no masses or organomegaly. EXTREMITIES: Extremities within normal limits, +2 pitting edema on BL LL PULSES: Symmetric 2+ radial, 2+ posterial tibial, 2+ dorsalis pedis Respiratory/Nursing Documentation: O2 Therapy: Nasal Cannula (04/08/18 0700) HEMODYNAMIC DATA: Reviewed NUTRITION: Enteral Feeds: Yes Clear Liquid DATA: Diagnostic tests reviewed for today's visit, films/specimens were personally reviewed by me: Most recent labs and imaging results. LABS: Recent Labs 04/08/18 0410 04/07/18 1050 04/07/18 0438 WBC 5.22 -- 7.27 RBC 2.73* -- 2.89* HB 8.8* -- 9.3* HCT 28.4* -- 29.5* MCV 104.0* -- 102.1* PLT 114* -- 97* GLUC 72 -- 71 BUN 10 -- 13 CREAT 0.60 -- 0.82 NA 146* -- 142 K 2.7* -- 3.6 CHLOR 104 -- 102 CO2 34* -- 32 TPROT -- -- 4.9* ALB -- -- 2.3* CA 8.3* -- 8.1* ALKPHOS -- -- 73 TBILI -- -- 2.8* AST -- -- 51* ALT -- -- 19 PTSEC -- 17.2* -- INR -- 1.75 -- MG -- -- 1.5* Echo 04/07/18 Left Atrium The left atrium appears moderately dilated in size. EUSEBIA is 41.76 ml/m2. Right Ventricle Normal right ventricular size and systolic function. A pacemaker/defibrillator wire is visualized in the right ventricle. Mitral Valve Moderate (2+) mitral valve regurgitation. Mitral regurgitataion appears to be due to annular dilation and apical tethering. Tricuspid Valve Mild (1+) tricuspid valve regurgitation. Right ventricular systolic pressure is estimated at 43 mmHg. Moderate pulmonary hypertension. Vena Cava The inferior vena cava is dilated and does not collapse > 50% with inspiration. Right atrial pressure is estimated at 15 mmHg. Left Ventricle Severe left ventricular systolic dysfunction with a visual estimated LVEF of 25-30%. Wall motion abnormalities as mentioned below. Normal left ventricular wall thickness. Stage III to IV diastolic dysfunction: Restrictive filling pattern. ABG: Invalid input(s): [id number] Assessment/Plan IMPRESSION: Critical Care Documentation: The patient has the following organ/system impairment(s): Encephalopathy 1. Acute encephalopathy 2/2 subacute/chronic subdural hematoma - Improving but not back to baseline - Neurology and neurosurgery following - EEG negative for seizures, okay to DC EEG per neuro - Continue Keppra for 7 days for seizure prophylaxis 2. Subacute/chronic subdural hematoma - No surgical intervention per neurosurgery - Neurology following - Keppra for 7 days for seizure prophylaxis - Holding AC, goal INR < 1.4 - Consider repeating head CT in a few days or if patient deteriorates. 3. Severe systolic dysfunction with LVEF 25-30 with stage III-IV diastolic dysfunction s/p ICD placement - Not in decompensation - Continue coreg and digoxin - Holding furosemide and metolazone due to hypokalemia, consider restarting once improved. 4. Hypokalemia - K is 2.7 today. Replaced. - Recheck in AM 5. Coagulopathy with elevated INR - Patient was on Eliquis for hx of DVT - Holding AC 10/28 #2 - Patient received 2 units FFP yesterday as well as vitamin K - INR goal is <1.4 6. NHL s/p SCT 7. Hx of LUE DVT - Continue to hold AC Disposition: Stable for floor transfer today SIGNATURE: Veronica Rosario MD PATIENT NAME: Ifeoma Ashraf DATE: April 08, 2018 TIME: 7:26 AM HEMOGRAM Collected: 04/08/2018 Status: F Source: [facility] 4:10 AM HEALTH SYSTEM REPOSITORY TYPE CODE TESTS RESULT OUT OF REFERENCE UNITS RANGE LAB WBC(LOINC) 3.98-10.04 thou/cmm WBC 5.22 LAB RBC(LOINC) 3.93-5.22 mil/cmm Low RBC 2.73 LAB HGB(LOINC) 11.2-15.7 g/dL Low Hgb 8.8 LAB HCT(LOINC) 34.1-44.9 % Low Hct 28.4 LAB MCV(LOINC) 79.4-94.8 fl High MCV 104.0 LAB MCH(LOINC) 25.6-32.2 pg MCH 32.2 LAB MCHC(LOINC) 31.6-34.8 % Low MCHC 31.0 LAB RDW(LOINC) 11.7-14.4 % High RDW 22.5 LAB RDWSD(LOINC 36.4-46.3 fl ) High RDW SD 84.8 LAB PLT(LOINC) 182-369 thou/cmm Low Platelet 114 LAB MPV(LOINC) 9.4-12.3 fl MPV 11.3 Performed By: #### CBC1 #### [facility] [address] [place] [address] BASIC PANEL Collected: 04/08/2018 Status: F Source: [facility] 4:10 AM HEALTH SYSTEM REPOSITORY TYPE CODE TESTS RESULT OUT OF REFERENCE UNITS RANGE LAB NA(LOINC) 136-145 mEq/L Sodium High Blood 146 LAB K(LOINC) 3.5-5.1 mEq/L Low Potassium Blood 2.7 LAB CL(LOINC) 98-107 mEq/L Chloride Blood 104 LAB CO2(LOINC) 21-32 mEq/L CO2 High Blood 34 LAB GLU(LOINC) 70-99 mg/dL Glucose Blood 72 LAB BUN(LOINC) 7-18 mg/dL BUN Blood 10 LAB CREA(LOINC 0.51-0.95 mg/dL ) Creatinine Blood 0.60 LAB CA(LOINC) 8.5-10.1 mg/dL Low Calcium Blood 8.3 LAB ANGAP(LOIN 8-16 C) Anion Gap 11 Performed By: #### P8 #### [facility] [address] [place] [address] FROZEN PLASMA Collected: 04/07/2018 Status: F Source: [facility] (THAWED PLASMA) 4:00 PM HEALTH SYSTEM REPOSITORY TYPE CODE TESTS RESULT OUT OF RANGE REFERENCE UNITS LAB FFP1(LOINC) FFP unit Done 1 LAB FFP2(LOINC) FFP unit Done 2 Performed By: #### FFPXS #### [place] [address] TYPE AND SCREEN Collected: 04/07/2018 Status: F Source: [facility] 4:00 PM HEALTH SYSTEM REPOSITORY TYPE CODE TESTS RESULT OUT OF REFERENCE UNITS RANGE LAB ABO(LOINC) O ABO Group LAB RECRUITER COORDINATOR(LOINC ) RH Type Positive LAB ABSCR(LOIN C) Antibody NEGATIVE Screen LAB BBCMT(LOIN C) Comment See Below Result Comment: Screen &/or Xmatch expires in 3 days at 12 midnight. Redraw patient at that time. Performed By: #### T&S #### [place] [address] FROZEN PLASMA Collected: 04/07/2018 Status: F Source: [facility] ([facility]AWED PLASMA) 4:00 PM HEALTH SYSTEM REPOSITORY TYPE CODE TESTS RESULT OUT OF RANGE REFERENCE UNITS LAB FFP1(LOINC) FFP unit Done 1 Performed By: #### FFPXS #### [place] [address] CASE MANAGEM Observed: 04/07/2018 Status: COMPLETED Source: [place] 3:59 PM CLINIC OTHER CAMPUS REPOSITORY HNO ID: [id number] Author: Ave (Specialist) Claude Service: (none) Author Type: (none) Type: Care Mgt Progress Note Filed: 04/07/2018 3:59 PM Note Text: Return referral sent to [facility] CASE MANAGEM Observed: 04/07/2018 Status: COMPLETED Source: [facility] 2:48 PM CLINIC OTHER CAMPUS REPOSITORY HNO ID: [id number] Author: Tara (Rn) NAHUM Canchola Service: Care Management Author Type: Registered Nurse Type: Care Mgt Progress Note Filed: 04/07/2018 2:50 PM Note Text: CARE MANAGEMENT PROGRESS NOTE SERVICE DATE: 04/07/2018 SERVICE TIME: 2:49 PM LOS: 0 days Pt getting EEG and echo. Pt able to answer that she was at [facility] for a rehab program, unsure if she would like to return. Will follow progress for further planning. SIGNATURE: Tara Canchola RN PATIENT NAME: Ifeoma Ashraf DATE: April 07, 2018 TIME: 2:48 PM PAGER/CONTACT #: [phone] PLAN OF CARE Observed: 04/07/2018 Status: COMPLETED Source: [place] 2:11 PM CLINIC OTHER CAMPUS REPOSITORY O ID: [id number] Author: Kaylynn Talbot (Pharmacist) Service: Pharmacy Author Type: Pharmacist Type: Plan of Care Filed: 04/07/2018 5:28 PM Note Text: MEDICATION HISTORY AND MEDICATION RECONCILIATION Patient Name:Carol Ashraf : 1965 Source of history:Pharmacy records: [facility] - [facility] Rx Resident Profile (in patient's chart) Medication Nonadherence Identified: No barriers noted The above information represents the best possible medication history: Yes Reconciliation completed? 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 OPERATOR medications addressed by LIP Additional comments: Please note the following changes to the initial SQUEEZER OPERATOR medication list -Added folic acid -Added mirtazapine -Added omeprazole -Added ondanestron -Added Eliquis -Added vitamin d3 -Removed vitamin d/calcium (not [place] paperwork) -Removed biotin (not [place] paperwork) -Removed ciprofloxacin (not [place] paperwork) -Removed potassium chloride PRN (not [place] paperwork) -Removed clonazepam (not [place] paperwork) -Removed metformin (not [place] paperwork) -Removed lisinopril (not [place] paperwork) -Removed hydrocodone/acetaminophen (not [place] paperwork) -Removed senna PRN (not [place] paperwork) -Removed spironolactone (not [place] paperwork) -Removed methotrexate (not current per [place] paperwork; per [facility] this was a one time order from 03/15/15) -Removed leucovorin (not current per [place] paperwork) -Updated venlafaxine dose/strength -Updated carvedilol tablet strength -Updated levothyroxine dose/strength -Updated gabapentin dose Allergies: ALLERGIES Allergen Reactions - Aleve [Naproxen Sod* Swelling - Latex Rash - Sulfa (Sulfonamide * Rash - Tape [Adhesive Tape* Other: See Comments Adhesives on tape Preferred Pharmacy: N/A Current SQUEEZER OPERATOR Medications: Prior to Admission medications as of 04/07/18 1411 Medication Sig Last Dose Taking nitrofurantoin monohydrate and macrocrystal (MACROBID) 100 mg capsule Take 100 mg by mouth twice daily. Yes folic acid 1 mg tablet Take 1 mg by mouth twice daily. Yes mirtazapine (REMERON) 15 mg tablet Take 15 mg by mouth daily at bedtime. Yes senna (SENNA) 8.6 mg tab Take 8.6 mg by mouth once daily as needed (constipation). Yes gabapentin (NEURONTIN) 100 mg capsule Take 100 mg by mouth twice daily. For fibromyalgia/neuro pain Yes omeprazole (PRILOSEC) 20 mg capsule Take 20 mg by mouth once daily. Yes ondansetron (ZOFRAN) 4 mg tablet Take 4 mg by mouth every 8 hours as needed for Nausea/Vomiting. Yes venlafaxine ER (EFFEXOR XR) 150 mg 24 hr capsule Take 150 mg by mouth once daily. Yes apixaban (ELIQUIS) 5 mg tab(s) Take 5 mg by mouth twice daily. Yes carvedilol (COREG) 3.125 mg tablet Take 3.125 mg by mouth twice daily with meals. Yes cholecalciferol (VITAMIN D-3) 5,000 unit tab Take 5,000 Units by mouth once daily. Yes levothyroxine (SYNTHROID) 75 mcg tablet Take 75 mcg by mouth daily before breakfast. Yes metOLAzone (ZAROXOLYN) 2.5 mg tablet Take 2.5 mg by mouth once daily. Yes simvastatin (ZOCOR) 10 mg tablet Take 10 mg by mouth daily at bedtime. 04/06/2018 Yes digoxin (LANOXIN) 125 mcg tablet TAKE ONE TABLET BY MOUTH ONCE DAILY 04/06/2018 Yes melatonin 3 mg Take by mouth daily at bedtime. 04/06/2018 Yes furosemide (LASIX) 40 mg tablet Take 1 tablet by mouth once daily. 04/06/2018 Yes lamoTRIgine 200 mg tablet Take 200 mg by mouth daily at bedtime. 04/06/2018 Yes KAYLYNN TALBOT, PHARMACIST April 07, 2018 2:11 PM CONSULT Observed: 04/07/2018 Status: COMPLETED Source: [facility] 11:46 AM CLINIC OTHER CAMPUS REPOSITORY HNO ID: [id number] Author: Bebeto Oconnell Service: Neurosurgery Author Type: Physician Type: Consults Filed: 04/07/2018 12:16 PM Note Text: CONSULT: NEUROSURGERY SERVICE SERVICE DATE: 04/07/2018 SERVICE TIME: 11:47 AM REASON FOR CONSULT: SDH REQUESTING PHYSICIAN: LEWIS HAWK PRIMARY CARE PHYSICIAN: Sangeetha Ivrin MD Subjective Ms. Ashraf is a 53 year old female with a complicated PMH who is on Eliquis, apparently fell and was taken to [facility]. She was found to have an SDH and so tsfrd here. Pt denies headache. She is confused and is a very poor historian. Info is mostly from notes. FUNCTIONAL STATUS: unk PAST MEDICAL HISTORY Diagnosis Date - Allergic rhinitis, cause unspecified - CHF (congestive heart failure) (HCC) - Diabetes (HCC) type II, oral and injectable insulin - Essential hypertension, benign - Fibromyalgia - Hypothyroid - Non Hodgkin's lymphoma (HCC) - Obesity, unspecified - PMH - PAST MEDICAL HISTORY OF non hodgkins lymphoma, berkitts - Rheumatoid arthritis (HCC) - Sciatica PAST SURGICAL HISTORY Procedure Laterality Date - CATARACT EXTRACTION HX 09/2016 - DANDC, DIAG AND/OR THERAPEUTIC Dilation AND curettage - DEFIBRILLATOR SURGERY 10-10-2009 [facility] - EXTRACTION ERUPTED TOOTH/EXR wisdom teeth - LAMINECTOMY,THORACIC 2006 - LAP CHOLECYSTECT/CHOLANGIOGRAPHY 04-01-15 - PAST SURGICAL HISTORY OF Left 2003 heel spurs - PAST SURGICAL HISTORY OF 09/24/2013 heart catherization - THYROID FINE NEEDLE ASPIRATION 12/2015 FAMILY HISTORY Problem Relation Age of Onset - Hypertension Mother - Heart Mother SD - d/t sepsis from UTI - Diabetes Father DIET CONTROLLED - Stroke Father - Allergies Father - Hypertension Father - Allergies Brother - Hypertension Maternal Grandmother - Diabetes Brother DIET CONTROLLED - Hypertension Brother Social History Substance Use Topics - Smoking status: Never Smoker - Smokeless tobacco: Never Used - Alcohol use No Prescriptions Prior to Admission: biotin 5,000 mcg ODT Take 5,000 mcg by mouth twice daily. Disp: Rfl: 04/06/2018 ciprofloxacin HCl (CIPRO) 500 mg tablet Take 500 mg by mouth three times daily as needed. Disp: Rfl: 04/06/2018 gabapentin (NEURONTIN) 100 mg capsule Take 100 mg by mouth twice daily. In addition to 3 tablets at bedtime Disp: Rfl: 04/06/2018 CALCIUM CARBONATE/VITAMIN D3 (VITAMIN D-3 ORAL) Take by mouth once daily. Disp: Rfl: 04/06/2018 simvastatin (ZOCOR) 10 mg tablet Take 10 mg by mouth daily at bedtime. Disp: Rfl: 04/06/2018 METFORMIN HCL (METFORMIN ORAL) Take 500 mg by mouth twice daily. Disp: Rfl: 04/06/2018 venlafaxine ER (EFFEXOR XR) 75 mg 24 hr capsule Take 75 mg by mouth once daily. Disp: Rfl: 04/06/2018 MEDICATION, NON-DATABASE Senekot; 2 at night prn Disp: Rfl: 04/06/2018 digoxin (LANOXIN) 125 mcg tablet TAKE ONE TABLET BY MOUTH ONCE DAILY Disp: 30 tablet Rfl: 3 04/06/2018 HYDROcodone-acetaminophen (NORCO) 5-325 mg per tablet Take 1 tablet by mouth every 6 hours as needed. Disp: Rfl: 04/06/2018 folic acid 1 mg tablet Take 2 mg by mouth once daily. Disp: Rfl: 04/06/2018 methotrexate 2.5 mg tablet Take 15 mg by mouth one time only. Disp: Rfl: 04/06/2018 melatonin 3 mg Take by mouth daily at bedtime. Disp: Rfl: 04/06/2018 leucovorin calcium 10 mg tablet Take 10 mg by mouth once each week. Disp: Rfl: 04/06/2018 furosemide (LASIX) 40 mg tablet Take 1 tablet by mouth once daily. Disp: 90 tablet Rfl: 1 04/06/2018 potassium chloride ER (K-DUR, KLOR-CON) 20 mEq tablet Take 2 tablets daily as instructed. Disp: 60 tablet Rfl: 6 04/06/2018 lisinopril (PRINIVIL) 5 mg tablet Take 0.5 tablets by mouth once daily. Disp: Rfl: 04/06/2018 carvedilol (COREG) 6.25 mg tablet Take 0.5 tablets by mouth twice daily with meals. Disp: Rfl: 0 04/06/2018 spironolactone 25 mg tablet Take 0.5 tablets by mouth once daily. Disp: 15 tablet Rfl: 11 04/06/2018 clonazePAM 1 mg tablet Take 1 tablet by mouth once daily. Disp: Rfl: 04/06/2018 lamoTRIgine 200 mg tablet Take 200 mg by mouth daily at bedtime. Disp: Rfl: 04/06/2018 levothyroxine (SYNTHROID) 50 mcg tablet Take by mouth. Take one(1) tablet daily except 2 on Tue and Sundays Disp: Rfl: 0 04/06/2018 Current hospital medications: potassium chloride 80-120 mEq oral liquid 80-120 mEq ORAL/FEEDING TUBE PRN potassium chloride iv piggyback 20 mEq in sterile water 100 mL 20 mEq INTRAVENOUS PRN magnesium sulfate in water 2 g in sterile water 50 ml 2 g INTRAVENOUS PRN sodium phosphate 45 mmol in NaCl 0.9% 250 mL 45 mmol INTRAVENOUS PRN calcium gluconate 4 g in NaCl 0.9% 250 mL 4 g INTRAVENOUS PRN dextrose 40 % 15 g 15 g ORAL PRN glucagon 1 mg injection (GLUCAGEN) 1 mg INTRAMUSCULAR PRN dextrose 50% in water 25 mL syringe 12.5 g INTRAVENOUS PRN carvedilol 3.125 mg tab(s) (COREG) 3.125 mg ORAL BID w MEALS cefTRIAXone iv piggyback 1 g in dextrose (iso-osmotic) 50 mL (ROCEPHIN) 1 g INTRAVENOUS q 24 H perflutren lipid microspheres 1.1 mg/mL 1.3 mL injection (DEFINITY) 1.3 mL INTRAVENOUS PRN(NO DISPENSE) digoxin 0.125 mg tab(s) (LANOXIN) 0.125 mg ORAL DAILY dextrose 5% in NaCl 0.9% iv infusion 25 mL/hr INTRAVENOUS CONTINUOUS lisinopril 2.5 mg tab(s) 2.5 mg ORAL DAILY insulin lispro pen (rapid acting) (HumaLOG KWIKPEN) SUBCUTANEOUS w MEALS levETIRAcetam iv piggyback 500 mg in NaCl (iso-osmotic) 100 mL (KEPPRA) 500 mg INTRAVENOUS BID Allergies As of Date: 04/06/2018 Allergen Noted Reaction ALEVE [NAPROXEN SODIUM] 05/23/2006 Swelling LATEX 02/24/2007 Rash SULFA (SULFONAMIDE ANTIBIOTICS) 05/23/2006 Rash TAPE [ADHESIVE TAPE-SILICONES] 06/12/2012 Other: See Comments Fully Assessed 03/31/2017 COMPLETE REVIEW OF SYSTEMS: all other systems were noncontributory Objective PHYSICAL EXAM: Physical Exam Performed: GENERAL: Alert, no distress, cooperative HEAD/SINUSES: No significant findings EYES: PERRLA, EOMI NECK: No jugulovenous distention, Supple EXTREMITIES: Extremities normal, no deformities, edema, clubbing or skin discoloration. Good capillary refill. NEURO: oriented to name only. Follows commands. Cranial nerves II-XII intact, speech is soft but appropriate, no facial droop, msp grossly intact and equal BP 110/66 Pulse 79 Temp (Src) 96.1 (Axillary) Resp 14 Ht 5' 6 (1.68m) Wt 223 lb 1.7 oz (101.2kg) SpO2 95% LMP 06/06/2006 BMI 36.03 kg/(m2). DATA: Diagnostic tests reviewed for today's visit: Most recent labs and imaging results. Impression/Recommendations Active Problems: 53 yof with right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 tab(s) (COREG) 3.125 mg ORAL BID w MEALS digoxin 0.125 mg tab(s) (LANOXIN) 0.125 mg ORAL DAILY lisinopril 2.5 mg tab(s) 2.5 mg ORAL DAILY cefTRIAXone iv piggyback 1 g in dextrose (iso-osmotic) 50 mL (ROCEPHIN) 1 g INTRAVENOUS q 24 H perflutren lipid microspheres 1.1 mg/mL 1.3 mL injection (DEFINITY) 1.3 mL INTRAVENOUS PRN(NO DISPENSE) Lines, Drains, and Airways Line Peripheral 04/07/18 0150 Assessment Short Right Wrist 22 Gauge less than 1 day PHYSICAL EXAM PERFORMED: General: Arouses to voice, stark , raises arm, some sluggish verbal, swallowed water sip, HR 64 spb 100. No 02 ; leg edema , mild R facial ecchymoses, obese. Squeezes beatriz hands. Dry mucous membranes, bruising on Cardiovascular: Regular rate and rhythm. Respiratory: Coarse breath sounds bilaterally Abdomen: Obese, soft, would not allow palpation or auscultation Extremities: Edema- 3+ pitting edema to the hip Neurologic: alert and oriented to self only, no apparent weakness in extremities Psych: speaks only in whispers, expresses distrustful of staff, admits to auditory and visual hallucinations stating someone is dragging/tapping their nails against the castro Skin: clear areas of ecchymosis in her upper back, on her chest along the upper portion of her sternum, her left Arm, and her left leg, head appears normocephalic and non-traumatic Respiratory/Nursing Documentation: O2 Therapy: Room Air (04/07/18 0650) HEMODYNAMIC DATA: Reviewed NUTRITION: Enteral Feeds: No NPO DATA: Diagnostic tests reviewed for today's visit, films/specimens were personally reviewed by me: Most recent labs and imaging results. LABS: Recent Labs 04/07/18 0438 WBC 7.27 RBC 2.89* HB 9.3* HCT 29.5* MCV 102.1* PLT 97* GLUC 71 BUN 13 CREAT 0.82 NA 142 K 3.6 CHLOR 102 CO2 32 TPROT 4.9* ALB 2.3* CA 8.1* ALKPHOS 73 TBILI 2.8* AST 51* ALT 19 MG 1.5* ABG: Invalid input(s): [id number] Assessment/Plan IMPRESSION: 53 yr old female patient with hx of NHL SP SCT, Chronic HFrEF (15%) with ICD, HTN, DM2, ALEJANDRO, DVTs. Patient was transferred to MICU, she was agitated during the night along with reported hallucinations, this morning her VS were WNL, she is afebrile. And today's lab were: Na 142, k 3.6, AG 12, Cr 0.82, Alb 2.3, Lactic acid level came down to 1.5, HB was 9.3 with MCV of 102, glu level of 71, INR 1.75, T4 high at 1.8, TSH 3.07 Patient IVF were decreased to 25ml/hr, diuretics and apixiban were held. She's on carvidol, lisinopril, digoxin and ceftriaxone. Neurosurgery were consulted, EEG was done, Brain CT w/o contrast was done today and showed subacute/chronic right cerebral convexity subdural hematoma with mild associated mass effect. Impression from neurosurgery was to what appears to be a small R hemisphere hygroma or chronic SDH with no recommendation for surgery. Critical Care Documentation: The patient has the following organ/system impairment(s): Encephalopathy ? - subacute/chronic right cerebral convexity subdural hematoma - ?Sepsis secondary to UTI but normalized lactic acid level - Concern for abuse - Type 2 DM - HFrEF (EF 15%) w/ AICD placement - Borderline bradycardia with low digoxin/BB , coreg - H/o Non-Hodgkin's lymphoma s/p stem cell transplant - Lactic acidosis - Macrocytic Anemia - DVT of left axillary and brachial veins - Coagulopathy INR 1.75 - Sal free T4 at 1.8 ? Full CODE as per outside documentation CRITICAL CARE PLAN: - Coagulation profile ordered today : INR 1.75 - TFT : T4 high at 1.8, TSH 3.07 - Patient IVF were decreased to 25ml/hr - Diuretics and apixiban were held. - She's on carvidol, lisinopril, digoxin - Consider alternative to metformin due to high lactate level at admission - On ceftriaxone but doubt septic shock lactic acidosis - ST eval - Neurosurgery were consulted, EEG was done, Brain CT w/o contrast was done today and showed subacute/chronic right cerebral convexity subdural hematoma with mild associated mass effect. Impression from neurosurgery was to what appears to be a small R hemisphere hygroma or chronic SDH with no recommendation for surgery. SIGNATURE: Veronica Rosario MD PATIENT NAME: Ifeoma Ashraf DATE: April 07, 2018 TIME: 7:03 AM Observed: 04/07/2018 Status: F Source: [facility] URINE 5:05 AM HEALTH SYSTEM REPOSITORY Test performed at [facility] <10,000 CFU/ml gram positive organisms cultured. No further identification or susceptibility testing will be performed. Plates will be held for 5 days. Performed By: #### C_URI #### [place] [address] Observed: 04/07/2018 Status: F Source: [facility] BLOOD 5:05 AM HEALTH SYSTEM REPOSITORY Test performed at [facility] No growth Performed By: #### C_BLO #### [facility] [address] [place] [id number] LACTIC ACID Collected: 04/07/2018 Status: F Source: [facility] 4:38 AM HEALTH SYSTEM REPOSITORY TYPE CODE TESTS RESULT OUT OF REFERENCE UNITS RANGE LAB LAC(LOINC) 0.4-2.0 mEq/L Lactic Acid 1.5 Performed By: #### LAC #### [facility] [address] [place] [id number] HEMOGRAM/DIFF Collected: 04/07/2018 Status: F Source: [facility] 4:38 AM HEALTH SYSTEM REPOSITORY TYPE CODE TESTS RESULT OUT OF REFERENCE UNITS RANGE LAB WBC(LOINC) 3.98-10.04 thou/cmm WBC 7.27 LAB RBC(LOINC) 3.93-5.22 mil/cmm Low RBC 2.89 LAB HGB(LOINC) 11.2-15.7 g/dL Low Hgb 9.3 LAB HCT(LOINC) 34.1-44.9 % Low Hct 29.5 LAB MCV(LOINC) 79.4-94.8 fl High MCV 102.1 LAB MCH(LOINC) 25.6-32.2 pg MCH 32.2 LAB MCHC(LOINC) 31.6-34.8 % Low MCHC 31.5 LAB RDW(LOINC) 11.7-14.4 % High RDW 22.7 LAB RDWSD(LOINC 36.4-46.3 fl ) High RDW SD 85.0 LAB PLT(LOINC) 182-369 thou/cmm Low Platelet 97 Result Comment: Smear scanned tech agrees with platelet count LAB MPV(LOINC) 9.4-12.3 fl MPV 11.2 LAB SEG(LOINC) % Seg Neutrophil 79.1 LAB IGRE(LOINC) % Immature Grans 0.60 LAB LYMPH(LOINC) % Lymphocyte 8.5 LAB MNO(LOINC) % Monocyte 11.0 LAB EOSIN(LOINC) % Eosinophil 0.4 LAB BASO(LOINC) % Basophil 0.4 LAB SEGN(LOINC) 1.56-6.13 thou/cmm Abs. Neut (ANC) 5.75 LAB IGAB(LOINC) 0.00-0.05 thou/cmm Abs Immature Grans 0.04 LAB LYMN(LOINC) 1.18-3.74 thou/cmm Abs. Low Lymph 0.62 LAB MONON(LOINC) 0.27-0.70 thou/cmm Abs. High Wolfe 0.80 LAB EOSN(LOINC) 0.00-0.31 thou/cmm Abs. Eosin 0.03 LAB BASON(LOINC) 0.01-0.08 thou/cmm Abs. Baso 0.03 Performed By: #### [id number] #### [address] [address] COMPREHENSIVE PANEL Collected: 04/07/2018 Status: F Source: [facility] 4:38 HEALTH SYSTEM REPOSITORY TYPE CODE TESTS RESULT OUT OF REFERENCE UNITS RANGE LAB NA(LOINC) 136-145 mEq/L Sodium Blood 142 LAB K(LOINC) 3.5-5.1 mEq/L Potassium Blood 3.6 LAB CL(LOINC) 98-107 mEq/L Chloride Blood 102 LAB CO2(LOINC) 21-32 mEq/L CO2 Blood 32 LAB GLU(LOINC) 70-99 mg/dL Glucose Blood 71 LAB BUN(LOINC) 7-18 mg/dL BUN Blood 13 LAB CREA(LOINC 0.51-0.95 mg/dL ) Creatinine Blood 0.82 LAB CA(LOINC) 8.5-10.1 mg/dL Low Calcium Blood 8.1 LAB ALB(LOINC) 3.4-5.0 g/dL Low Albumin Blood 2.3 LAB TP(LOINC) 6.4-8.2 g/dL Low Total Protein 4.9 LAB AST(LOINC) 9-37 U/L AST-SGOT High Blood 51 LAB ALT(LOINC) 12-78 U/L ALT-SGPT Blood 19 LAB ALKP(LOINC 46-116 U/L ) Alk Phosphatase 73 LAB BILIT(LOIN 0.2-1.0 mg/dL C) Total High Bilirubin 2.8 LAB ANGAP(LOIN 8-16 C) Anion Gap 12 Performed By: #### P14 #### [address] [address] MAGNESIUM BLOOD Collected: 04/07/2018 Status: F Source: [facility] 4:38 AM HEALTH SYSTEM REPOSITORY TYPE CODE TESTS RESULT OUT OF REFERENCE UNITS RANGE LAB MAG(LOINC) 1.6-2.6 mg/dL Low Magnesium Blood 1.5 Performed By: #### MAG #### [facility] [address] [place], [place] [address] PHOSPHORUS BLOOD Collected: 04/07/2018 Status: F Source: [facility] 4:38 AM HEALTH SYSTEM REPOSITORY TYPE CODE TESTS RESULT OUT OF REFERENCE UNITS RANGE LAB PHOS(LOINC 2.5-4.9 mg/dL ) Phosphorus Blood 2.7 Performed By: #### PHOS #### [facility] [address] [place] [address] HISTORY PHYSICAL Observed: 04/07/2018 Status: COMPLETED Source: [facility] 3:10 AM CLINIC OTHER CAMPUS REPOSITORY HNO ID: [id number] Author: Agapito Mckenna) Keshawn Service: Critical Care Author Type: Physician Type: HANDP Filed: 04/07/2018 3:29 AM Note Text: [facility] STAFF PHYSICIAN NOTE OF PERSONAL INVOLVEMENT IN CARE I have reviewed the history and physical examination obtained and documented by the resident and I personally participated in the lopez components. I have discussed the case and management of the patient's care. The following comments revise or confirm relevant lopez components of the note. IMPRESSION: 53 year old female with PMH of NHL s/p stem cell transplant, chronic HFrEF with AICD, DM2, DVT of left axiallry and brachial veins on Apixaban, s/p mechanical fall with subdural hematoma presented with: Encephalopathy x 2 weeks, stable subdural hematoma/hydrocephalus vs sepsis ?UTI (50 to 100K) Lactic acidosis, stable blood pressure, unclear etiology. ?Metformin PLAN: Repeat labs. Lactate ECHO. Hold IVF for now F/u Cx, continue antibiotics, deescalate based on Cx Neuro consult, hold Apixaban Continue cardiac meds with holding parameters. Hold scheduled diuretics for now ICU PPx This patient has a high probability of sudden, clinically significant deterioration, which requires the highest level of physician preparedness to intervene urgently. I managed/supervised life or organ supporting interventions that required frequent physician assessment. I devoted my full attention to the direct care of this patient for the amount of time indicated below. Time I spent with family or surrogate(s) is included only if the patient was incapable of providing the necessary information or participating in medical decision making. Time devoted to teaching and to any procedures I billed separately is not included. Critical Care Documentation: The patient has the following organ/system impairment(s): Encephalopathy Time spent providing critical care services: 30 minutes. SIGNATURE: Agapito Liao MD [facility] DATE of SERVICE: 04/07/2018 TIME of SERVICE: 3:20 AM Observed: 04/07/2018 Status: F Source: [facility] MRSA SCREEN 2:45 AM HEALTH SYSTEM REPOSITORY Test performed at [facility] No MRSA detected. Performed By: #### MRSA #### [facility] [address] [place] [address] HISTORY PHYSICAL Observed: 04/07/2018 Status: COMPLETED Source: [facility] 1:43 AM CLINIC OTHER CAMPUS REPOSITORY HNO ID: [id number] Author: Zeina Almeida Service: Critical Care Author Type: Resident Type: HANDP Filed: 04/07/2018 3:35 AM Note Text: Attestation signed by Agapito Liao at 04/07/2018 6:24 PM [facility] STAFF PHYSICIAN NOTE OF PERSONAL INVOLVEMENT IN CARE I have reviewed the history and physical examination obtained and documented by the resident and I personally participated in the lopez components. I have discussed the case and management of the patient's care. Please refer to my note from 04/07/2018 for my assessment and plan. SIGNATURE: Agapito Liao MD [facility] CRITICAL CARE CONSULT NOTE SERVICE DATE: 04/07/2018 SERVICE TIME: 1:44 AM REASON FOR CONSULT: UTI Sepsis with Subdrual Hematoma REQUESTING PHYSICIAN: Dr. Lizarraga ([facility]) ADMITTING PROVIDER: Agapito Liao SERVICE DATE: 04/07/2018 SERVICE TIME: 1:44 AM Admission Date: 04/07/2018 AGE: [age] year old LOS: 0 days Subjective All documentation per outside records due to patient's altered mental status This is a 53 year old female with history of Non-Hodgkin's lymphoma s/p stem cell transplant, HFrEF (15%), Type 2 Diabetes Mellitus, ALEJANDRO, DVT of Left Axillary and Brachial Veins admitted directly from outside Emergency Department for her altered mental status. Per outside records: She was recently admitted to the hospital and was found to have congestive heart failure with an ejection fraction of 15%. She was discharged to a nursing facility. At the nursing facility, she became combative. She had a CT performed yesterday that showed possible hygroma versus subacute resolving subdural hematoma. At the Emergency Department she was hypotensive 97/72, pulse 108, alert and oriented only to self, Cr 1.3, anion gap 12, INR was 2.3, UA showed evidence of 50-100 white cells with 4+ bacteria nitrates. Troponin was indeterminate at 0.046, lactic acid was 6.7. She received Haldol, Ceftriaxone and was started on 250cc of maintenance fluids Objective PROBLEMS: ACTIVE PROBLEM LIST Other Malignant Lymphomas, Unspecified Site, Extranodal and Solid Organ Sites Complications of Bone Marrow Transplant (Hcc) Automatic Implantable Cardiac Defibrillator in Situ Lv Dysfunction Obesity Sleep Apnea Chf (Congestive Heart Failure) (Hcc) Chronic Cholecystitis With Calculus Multinodular Goiter (Nontoxic) PAST MEDICAL HISTORY Diagnosis Date - Allergic rhinitis, cause unspecified - CHF (congestive heart failure) (HCC) - Diabetes (HCC) type II, oral and injectable insulin - Essential hypertension, benign - Fibromyalgia - Hypothyroid - Non Hodgkin's lymphoma (HCC) - Obesity, unspecified - PMH - PAST MEDICAL HISTORY OF non hodgkins lymphoma, berkitts - Rheumatoid arthritis (HCC) - Sciatica PAST SURGICAL HISTORY Procedure Laterality Date - CATARACT EXTRACTION HX 09/2016 - [facility], DIAG AND/OR THERAPEUTIC Dilation AND curettage - DEFIBRILLATOR SURGERY 10-10-2009 [facility] - EXTRACTION ERUPTED TOOTH/EXR wisdom teeth - LAMINECTOMY,THORACIC 2006 - LAP CHOLECYSTECT/CHOLANGIOGRAPHY 04-01-15 - PAST SURGICAL HISTORY OF Left 2003 heel spurs - PAST SURGICAL HISTORY OF 09/24/2013 heart catherization - THYROID FINE NEEDLE ASPIRATION 12/2015 Social History Marital status: Single Spouse name: Years of education: 16 Number of children: 0 Occupational History Occupation Employer Comment disability [employer] Social History Main Topics Smoking status: Never Smoker Smokeless tobacco: Never Used Alcohol use: No Drug use: No Sexual activity: No Comment: never SA VITAL SIGNS (last 24hrs min/max): Temp Av.9 ?C (98.4 ?F) Min: 36.9 ?C (98.4 ?F) Max: 36.9 ?C (98.4 ?F) Pulse Av Min: 92 Max: 92 No Data Recorded Cuff BP Min: 107/75 Max: 107/75 Pain Score: 0/10 Vital signs reviewed. BP 107/75 Pulse 92 Temp (Src) 98.4 (Axillary) Resp 19 SpO2 96% LMP 06/06/2006 Temp (24hrs), Av.9 ?C (98.4 ?F), Min:36.9 ?C (98.4 ?F), Max:36.9 ?C (98.4 ?F) NET FLUID BALANCE No intake or output data in the 24 hours ending 04/07/18 0144 MEDICATIONS No current facility-administered medications for this encounter. Lines, Drains, and Airways No matching active lines, drains, or airways PHYSICAL EXAM PERFORMED: General: dry mucous membranes, bruising on Cardiovascular: Patient would not allow cardiovascular exam. Respiratory: Coarse breath sounds bilaterally Abdomen: Obese, soft, would not allow palpation or auscultation Extremities: Edema- 3+ pitting edema to the hip Neurologic: alert and oriented to self only, no apparent weakness in extremities as she pushes me away with her arms and legs Psych: speaks only in whispers, expresses distrustful of staff, admits to auditory and visual hallucinations stating someone is dragging/tapping their nails against the castro Skin: clear areas of ecchymosis in her upper back, on her chest along the upper portion of her sternum, her left Arm, and her left leg, head appears normocephalic and non-traumatic Respiratory/Nursing Documentation: O2 Therapy: Room Air (04/07/18 0122) HEMODYNAMIC DATA: Reviewed NUTRITION: Enteral Feeds: No NPO DATA: Diagnostic tests reviewed for today's visit, films/specimens were personally reviewed by me: Most recent labs and imaging results. LABS: Pertinent labs from outside records: Lactate 6.7 UA= 4+ bacteria nitirates CBC= - Hgb 11.2 - MCV 103.3 - PLT 241 PT= 25.6 INR= 2.3 APTT= 41.3 CXR 04/06/18 - left chest wall pacing device - degenerative changes of the thoracic spine CT head 04/06/18 - ? Small area of isodense fluid along the right parietal lobe; possible hygroma - Ventricular dilation Assessment/Plan IMPRESSION: Critical Care Documentation: The patient has the following organ/system impairment(s): Encephalopathy - Acute Encephalopathy; baseline unknown, possibly secondary to sepsis vs normal pressure hydrocephalus - ?Sepsis secondary to UTI - Subdural Hematoma vs possible hygroma per outside records likely due to recent fall - Type 2 DM - HFrEF (EF 15%) w/ AICD placement - H/o Non-Hodgkin's lymphoma s/p stem cell transplant - Lactic acidosis - Macrocytic Anemia - DVT of left axillary and brachial veins Full CODE as per outside documentation CRITICAL CARE PLAN: - Given altered mental status and urinalysis indicative of infection, patient likely encephalopathic from sepsis versus normal pressure hydrocephalus. Will perform blood cultures, urine culture, cmp, cbc, mg, phos, and lactate. Start on ceftriaxone. Consult neurology for altered mental status. - Lactic acidosis possibly due to metformin. Will hold at this time. Will maintain the patient NPO except for meds and sips of water. Start slider - As patient has stable subdural hematoma, will hold neurosurgery consult at this time. Hold Apixaban at this time. - Due to her low EF, will be judicious in giving fluids. Will obtain echocardiogram in the morning. Hold diuretics - With her severe cardiomyopathy, will restart her cardiac medications with holding parameters for low blood pressure. - Call Nursing Facility ([facility]) to determine baseline mentation and recency of fall/DVT - Physical Therapy/Occupational Therapy SIGNATURE: Zeina Almeida MD PATIENT NAME: Ifeoma Ashraf DATE: April 07, 2018 TIME: 1:44 AM EMERGENCY DEPARTMENT Observed: 04/07/2018 Status: F Source: [place] SUMMARY 12:12 AM [facility] REPOSITORY [facility] Medical Records Department [address] [place] [address] Emergency Department Summary 04/06/18 2310 MR#: [id number] Acct: [id number] Name: IFEOMA ASHRAF Rep #: [id number] : 1965 53 From: Dejuan Bacon MD PCP: Oscar Chan MD Status: REG ER - ER Visit Summary Date of Service: 04/06/18 Chief Complaint: Change of mental status History of Present Illness: The patient is a 53 F presenting for evaluation secondary to altered mental status. Patient was recently admitted to the hospital, and had a workup for congestive heart failure. She was found to have an ejection fraction 15% was discharged to a long term. Apparently the patient became combative and confused today. Additional history is unable to be obtained from patient, and the only thing the long term said is that she was out of and confused. Patient apparently had an outpatient CT performed yesterday that showed a possible hygroma versus subacute resolving subdural hematoma. Patient apparently did have a distance but not recent fall and she is on Eliquis. Physical Examination: Blood pressure 92/72, heart rate 108. Well-nourished female no acute distress. Head normocephalic atraumatic. PRL, EOMI. Dry mucous membranes are noted. Heart was tachycardic and regular with distant heart sounds. Lung sounds clear. Abdomen was diffusely tender, no guarding or rebound, no evidence of masses or distention. 2+ bilaterally symmetric lower extremity edema. Skin was normal color no rash. Patient was alert and oriented only to self but had no lateralizing neurological deficits. Test Results: CT brain continues to demonstrate a right parietal hygroma versus stable subacute subdural hematoma with no change. EKG demonstrates a rate of 106 with old anterolateral Q waves unchanged from prior EKG. CBC unremarkable, chemistry shows creatinine 1.3 anion gap at 12 INR was 2.3 urinalysis shows evidence of 50-100 white cells with 4+ bacteria nitrates. Troponin was indeterminate at 0.046, lactic acid was 6.7. Emergency Department Course and Treatment: Patient presented secondary to altered mental status. Patient was evaluated as noted above. I had a discussion with the radiologist about the patient's CT changes, he states that these are completely unchanged from the prior scan and he recommends a follow-up MRI to further characterize this. Patient was found to have lactic acidosis. She has normal blood pressure and was only mildly tachycardic, and given her profound history of congestive heart failure with an ejection fraction of 15% I do not believe that bolusing the patient with a large amount of fluids is appropriate she was rather placed on a 250 cc/h fluid resuscitation. Patient was found to have a urinary tract infection she was given Rocephin after cultures were obtained. I had a discussion with the hospitalist Dr. Manuel, about admitting this patient, he states that given the fact that given the fact that the patient has these changes on CT he would want a MRI on the patient prior to admitting the patient. I had a discussion with the manager technical training, and the patient's current symptoms and findings on CT did not meet their criteria for emergent MRI at this time of night. I had a further discussion with the hospitalist about this, and he would like the patient transferred to a higher level of care. I had a discussion with Porfirio bearden about this, they agreed to accept patient to intensive care. Disposition: Transfer Impression: 1. Urinary tract infection 2. Metabolic encephalopathy 3. Right parietal hygroma versus subacute subdural hematoma 4. Lactic acidosis Critical care time 45 minutes This note was generated with [employer] dictation software. It may contain incorrect words, spelling, and punctuation that were not noted in review of the chart prior to signing ED Disposition - Plan for ED Patient: Chief Complaint: Alt LOC Referrals: Oscar Chan MD [Primary Care Provider] - What to do if you have Problems For any increased pain, shortness of breath, bleeding, nausea or vomiting, chest pain, or any unexpected problems, contact your Primary Care Provider. Call [facility] ([phone]) or report to the closest Emergency Room. Call 911 if necessary. 04/07/18 0012 <Electronically signed by Dejuan Bacon MD> Date Dejuan Bacon MD Cosigner Signature (If Indicated): Date CC: Oscar Chan MD LACTIC ACID Collected: 04/06/2018 Status: F Source: [place] 11:34 PM [facility] REPOSITORY TYPE CODE TESTS RESULT OUT OF REFERENCE UNITS RANGE LAB L503.6005 0.4-2.0 mmol/L High LACTIC ACID 2.6 Result Comment: Critical Result(s) Called at: 00:11:56 04/07/2018 by: ARLETH JUAREZ to Liza Jensen Performed By: #### L503.6005 #### [facility] [address] [place], [address] Observed: 04/06/2018 Status: F Source: [place] CULTURE, BLOOD (WB) 9:53 PM [facility] REPOSITORY BC No growth in 5 days. Performed By: #### M200.1000 #### [facility] [address] [place], [address] URINALYSIS, COMPLETE Collected: 04/06/2018 Status: F Source: [place] 8:52 PM [facility] REPOSITORY Order Comment: Order Date: 04/06/18 Has pt arrived? Y How was Urine Obtained? CATHETER SPECIMEN TYPE CODE TESTS RESULT OUT OF RANGE REFERENCE UNITS LAB L400.3000 Yellow COLOR Normal Yellow LAB L400.3050 Clear Normal CLARITY Cloudy LAB L400.3200 Normal mg/dl Normal GLUCOSE, UR Normal LAB L400.3300 Negative mg/dL High BILIRUBIN URINE 3 Result Comment: COLOR OF URINE MAY AFFECT DIPSTICK RESULTS. LAB L400.3400 Negative mg/dl High KETONE UR 50 LAB L400.3465 1.002-1.030 Normal SP.GR. DIPSTX 1.010 LAB L400.3550 5.0 - 8.0 pH Normal UR 8.0 LAB L400.3600 Negative mg/dl High PROT DIPSTX 100 LAB L400.3700 Normal mg/dl High UROBILI 12 LAB L400.3750 Negative High NITRITE UR Positive LAB L400.3780 Negative /ul High OCCULT 25 BLOOD-UR LAB L400.3800 Negative /ul High LEUK ESTERASE 500 LAB L400.4050 0-5 /hpf Normal WBC 50-100 SEEN LAB L400.4100 0-5 /hpf Normal RBC-UA 0 SEEN LAB L400.4150 5-10 /hpf Normal SQUAM EPI 0 SEEN LAB L400.4300 None Seen /hpf Normal BACTERIA 4+ LAB L400.4350 <or=2+ /hpf Normal MUCUS, URINE 1+ LAB L400.4400 0-5 /lpf Normal HYALINE CAST 5-10 SEEN Performed By: #### L400.0001 #### [facility] [address] [facility] [place], [place], [address] Observed: 04/06/2018 Status: F Source: [place] CULTURE, URINE 8:52 PM [facility] REPOSITORY Order Date: 04/06/18 Has pt arrived? Y Urine Culture ORGANISM 1: Proteus mirabilis [place] Count >100,000 Proteus mirabilis: REACTION Amoxacillin/Clavulanic Acid $ 4 S Ampicillin $ <=2 S Ampicillin/Sulbactam $ <=2 S Cefazolin $ <=4 S Cefepime $ <=1 S Ceftriaxone $ <=1 S Ciprofloxacin $ <=0.25 S Ertapenim $$$ <=0.5 S Gentamicin $ <=1 S Levofloxacin $ <=0.12 S Nitrofurantoin $ >=512 R Piperacillin/Tazobactam $$ <=4 S Tobramycin $ <=1 S Trimethoprim/Sulfametho $ <=20 S (NF) indicates non-formulary drug at [facility]. Approval by Infectious Disease Specialist required before non-formulary drugs may be ordered and/or dispensed. Performed By: #### M100.0650 #### [facility] [address] [facility] [place], [place], [address] CBC W/DIFF, AUTOMATED Collected: 04/06/2018 Status: F Source: [place] 7:30 PM [facility] REPOSITORY TYPE CODE TESTS RESULT OUT OF RANGE REFERENCE UNITS LAB L100.1000 4.4-11.0 K/mm3 Normal WBC 9.1 LAB L100.1200 4.2-5.4 M/mm3 Low RBC 3.61 LAB L100.1300 12.0-15.0 g/dl Low HGB 11.2 LAB L100.1400 37-47 % Normal HCT 37.3 LAB L100.1500 81-99 fL High MCV 103.3 LAB L100.1600 27.0-32.0 pg Normal MCH 31.0 LAB L100.1700 32-36 g/gl Low MCHC 30.0 LAB L100.1810 11.6-14.6 % High RDW CV 22.2 LAB L100.1820 35.1-43.9 fl High RDW SD 83.9 LAB L100.1900 150-450 K/mm3 Normal PLT 241 LAB L100.2000 6.2-12.0 fl Normal MPV 10.5 LAB L100.2100 47-70 % High NEUT% 80.2 LAB L100.2200 19-41 % Low LY% 9.6 LAB L100.2300 0-10 % Normal MONO% 8.8 LAB L100.2400 0-5 % Normal EO% 1.0 LAB L100.2500 0-1 % Normal BASO% 0.3 LAB L100.2550 0.0-0.9 % Normal IM GRAN % 0.100 Result Comment: IG% - Immature Granulocytes (promyelocytes, myelocytes and metamyelocytes) > 1% indicates that a LEFT SHIFT is Present. LAB L100.2620 2.0-7.7 X10 3/uL Normal Absolute Neut 7.3 LAB L100.2720 0.83-4.51 X10 3/ul Normal Absolute Lymph 0.88 LAB L100.5500 ADEQ PLT Normal EST ADEQUATE LAB L100.7300 ANISO 1+ Normal LAB L100.7800 1+ Normal MACROCYTE LAB L100.8200 Normal OVALOCYTE RARE Performed By: #### L100.0100 #### [facility] [address] [place], [address] COMPREHENSIVE METABOLIC Collected: 04/06/2018 Status: F [facility] 7:30 PM [facility] REPOSITORY TYPE CODE TESTS RESULT OUT OF RANGE REFERENCE UNITS LAB L501.0100 74-106 mg/dL Normal GLU 76 Result Comment: Please note revised GLUCOSE reference range effective 2017. LAB L501.1000 7-18 mg/dL Normal BUN 14 LAB L501.1100 0.55-1.02 mg/dL High CREAT,SERUM 1.33 Result Comment: The validity of the calculated GFR AND GFRAA in patients over 70 years has not been determined. Clinical correlation is essential. LAB L501.1110 >60 mL/min Low EST GFR 44 Result Comment: Non- GFR Calc LAB L501.1115 >60 mL/min Low EST GFR - AA 54 Result Comment: GFR Calc LAB L501.1255 ml/min Normal Estimated CRCL 43.51 LAB L501.1300 10-20 RATIO Normal BUN/CRE 10.5 LAB L501.1500 6.4-8. g/dL Normal 2 T PROT 6.5 LAB L501.1800 3.2-5. g/dL Low 0 ALB 3.1 LAB L501.1950 2.2-4. g/dL Normal 2 GLOB 3.4 LAB L501.2000 0.9-2. RATIO Normal 4 A/G 0.9 LAB L501.2200 8.5-10 mg/dL Normal .1 CA 8.7 LAB L501.4100 15-37 U/L High AST 58 Result Comment: Moderate Hemolysis, Result may be falsely increased. LAB L501.4305 45-117 U/L Normal ALK P 101 LAB L501.4405 13-56 U/L Normal ALT 22 LAB L501.4600 0.20-1.00 mg/dL High T BILI 3.70 LAB L501.5300 136-145 mmol/L Normal NA 140 LAB L501.5600 3.5-5.1 mmol/L Normal K 4.8 Result Comment: Moderate Hemolysis, Result may be falsely increased. LAB L501.5900 98-107 mmol/L Normal CL 98 LAB L501.6100 21.0-32.0 mmol/L Normal CO2 30.0 LAB L501.6200 5-15 Normal GAP 12 Performed By: #### L500.4050, L501.4010 #### [facility] [address] [place], [address] TROPONIN-I Collected: 04/06/2018 Status: F Source: [place] 7:30 PM [facility] REPOSITORY TYPE CODE TESTS RESULT OUT OF RANGE REFERENCE UNITS LAB L501.4010 <0.045 ng/mL High 0.046 TROPONIN-I Result Comment: TROPONIN-I EXPECTED VALUES <0.045 Negative 0.045 - 0.590 Consistent with Cardiac Damage > OR = 0.600 Critical Value Not every elevated troponin is indicative of SD. These values should be used with clinical judgement in examining the patient's clinical picture for diagnosis. To establish a diagnosis of SD versus myocardial injury, there must be a demonstrated rise and/or fall in the troponin values, in addition to ischemic symptoms, EKG changes, new regional wall motion abnormality, and/or angiographical evidence. PLEASE NOTE: REFERENCE RANGES EDITED 18 Performed By: #### L500.4050, L501.4010 #### [facility] [address] [facility] [place], [address] LACTIC ACID Collected: 04/06/2018 Status: F Source: [place] 7:30 PM [facility] REPOSITORY Order Comment: Yes/No query for Sepsis Lactate Rule Y TYPE CODE TESTS RESULT OUT OF REFERENCE UNITS RANGE LAB L503.6005 0.4-2.0 mmol/L High alert LACTIC ACID 6.7 Result Comment: Critical Result(s) Called Lisa RIVERA at: 20:23:22 04/06/2018 by: BRITTANY TORRES Performed By: #### L503.6005 #### [facility] [address] [facility] [place], [address] PROTHROMBIN TIME W/INR Collected: 04/06/2018 Status: F Source: [place] 7:30 PM [facility] REPOSITORY TYPE CODE TESTS RESULT OUT OF RANGE REFERENCE UNITS LAB L300.4150 11.7-14.9 SECONDS High PROTIME 25.6 LAB L300.4200 Normal INR 2.3 Performed By: #### L300.3900, L300.4310 #### [facility] [address] [facility] [place], [address] PARTIAL THROMBOPLAST Collected: 04/06/2018 Status: F Source: [place] TIME 7:30 PM [facility] REPOSITORY TYPE CODE TESTS RESULT OUT OF REFERENCE UNITS RANGE LAB L300.4310 24.1-36.2 Seconds High PTT 41.3 Performed By: #### L300.3900, L300.4310 #### [facility] [address] [place], [address] Observed: 04/06/2018 Status: F Source: [place] CULTURE, BLOOD (WB) 7:30 PM [facility] REPOSITORY BC No growth in 5 days. Performed By: #### M200.1000 #### [facility] [address] [place], [address] CHEST 1 VIEW Observed: 04/06/2018 Status: F Source: [place] (PORTABLE) 6:28 PM [facility] REPOSITORY [facility] Imaging Services [address] [place] [address] Chest 1 View (Portable) MR#: [id number] Acct: [id number] Name: IFEOMA ASHRAF Rep #: [id number] : 1965 F 53 From: Levy Lucas DO PCP: Sangeetha Irvin DO Status: PRE ER Study: Chest 1 View (Portable) Date of Exam: 04/06/18 Exam# [id number] Ordering Dr: Dejuan Bacon MD STUDY: X-RAY CHEST REASON FOR EXAM: Female, 53 years old. Cough with confusion TECHNIQUE: Single AP portable view of the chest. COMPARISON: 03/07/2018 FINDINGS: Stable left chest wall pacing device The lungs are clear [...] , CC: Sangeetha Irvin DO; Dejuan Bacon Supervisor Laundry: Signed BRAIN/HEAD WITHOUT Observed: 04/06/2018 Status: F Source: [place] CONTRAST 6:28 PM [facility] REPOSITORY [facility] Imaging Services [address] [place] [address] Brain/Head without Contrast MR#: [id number] Acct: [id number] Name: IFEOMA ASHRAF Rep #: [id number] : 1965 F 53 From: Levy Lucas DO PCP: Oscar Chan MD Status: REG ER Study: Brain/Head without Contrast Date of Exam: 04/06/18 Exam# [id number] Ordering Dr: Dejuan Bacon MD STUDY: CT BRAIN WITHOUT CONTRAST REASON FOR EXAM: Female, 53 years old. Confusion and agitation RADIATION DOSAGE (If Supplied By Facility): CTDIvol = ( 44.99 ) mGy, DLP = ( 846.73 ) mGycm TECHNIQUE: Transaxial CT imaging of the brain was performed without administration of intravenous contrast material. Individualized dose optimization techniques were used for this CT. COMPARISON: Head CT yesterday and March 08, 2018 FINDINGS: As described on head CT from yesterday, adjacent to the right parietal lobe, there appears to be an area of isodense subdural fluid collection which was not clearly identifiable on the exam from February. This measures roughly 7 mm wide by 5.7 cm AP. This is seen on both the axial and coronal sequences. Unsure if this represents small subacute subdural hematoma. Normal soft tissue structures. Normal calvarium. There is mild cerebral atrophy with widening of the extra- axial spaces and ventricular dilatation. There are areas of decreased attenuation within the white matter tracts of the supratentorial brain, consistent with microvascular disease changes. Normal basal ganglia and thalami. Normal brainstem. Normal cerebellum. Normal visualized paranasal sinuses. CT/Brain/Head without Contrast IMPRESSION: 1. Questionable small area of isodense subdural fluid along the right parietal lobe as detailed above. Possible hygroma? Not seen on the most recent prior exam. May represent volume averaging versus resolving small subdural hematoma. MRI brain needed to further evaluate 2. Otherwise, mild chronic involutional changes of the brain N.B. : The above information has been verbally conveyed by Levy Lucas DO to Dr. Bacon, Covering Physician, on 04/06/2018 20:45:39 (ET). Electronically Signed: Levy Lucas DO at 20:45 EDT Tel , Service support , CC: Oscar Chan MD; Dejuan Bacon Supervisor Laundry: Signed BRAIN/HEAD WITHOUT Observed: 04/05/2018 Status: F Source: [place] CONTRAST 11:17 AM [facility] REPOSITORY [facility] Imaging Services [address] [place] [address] Brain/Head without Contrast MR#: [id number] Acct: [id number] Name: IFEOMA ASHRAF Rep #: [id number] : 1965 F 53 From: Levy Lucas DO PCP: Sangeetha Irvin DO Status: REG CLI Study: Brain/Head without Contrast Date of Exam: 04/05/18 Exam# [id number] Ordering Dr: Oscar Chan MD STUDY: CT BRAIN WITHOUT CONTRAST REASON FOR EXAM: Female, 53 years old. Fall with altered mental status RADIATION DOSAGE (If Supplied By Facility): CTDIvol = ( 44.99 ) mGy, DLP = ( 745.49 ) mGycm TECHNIQUE: Transaxial CT imaging of the brain was performed without administration of intravenous contrast material. Individualized dose optimization techniques were used for this CT. COMPARISON: 03/08/2018 FINDINGS: Adjacent to the right parietal lobe, there appears to be an area of isodense subdural fluid collection which was not clearly identifiable on the most recent prior head CT. This is seen on both the axial and coronal sequences. Unsure if this represents small subacute subdural hematoma. Normal soft tissue structures. Normal calvarium. There is mild cerebral atrophy with widening of the extra- axial spaces and ventricular dilatation. There are areas of decreased attenuation within the white matter tracts of the supratentorial brain, consistent with microvascular disease changes. Normal basal ganglia and thalami. Normal brainstem. Normal cerebellum. Normal visualized paranasal sinuses. CT/Brain/Head without Contrast IMPRESSION: 1. Questionable small area of isodense subdural fluid along the right parietal lobe as detailed above. Possible hygroma? Not seen on the most recent prior exam. May represent volume averaging versus resolving small subdural hematoma. MRI brain needed to further evaluate 2. Otherwise, mild chronic involutional changes of the brain N.B. : The above information has been verbally conveyed by Levy Lucas DO to connected , Covering Physician, on 04/05/2018 14:06:03 (ET). Electronically Signed: Levy Lucas DO at 14:06 EDT Tel , Service support , N.B. : The above information has been verbally conveyed by Levy Lucas DO to connected , Covering Physician, on 04/05/2018 14:06:03 (ET). CC: Sangeetha Irvin DO; Oscar Chan MD Supervisor Laundry: Signed CBC-COMPLETE BLOOD CNT Collected: 04/05/2018 Status: F Source: [place] NO DIFF 11:08 AM [facility] REPOSITORY TYPE CODE TESTS RESULT OUT OF RANGE REFERENCE UNITS LAB L100.1000 4.4-11.0 K/mm3 Normal WBC 6.6 LAB L100.1200 4.2-5.4 M/mm3 Low RBC 3.52 LAB L100.1300 12.0-15.0 g/dl Low HGB 11.0 LAB L100.1400 37-47 % Low HCT 36.8 LAB L100.1500 81-99 fL High MCV 104.5 LAB L100.1600 27.0-32.0 pg Normal MCH 31.3 LAB L100.1700 32-36 g/gl Low MCHC 29.9 LAB L100.1810 11.6-14.6 % High RDW CV 22.4 LAB L100.1820 35.1-43.9 fl High RDW SD 84.5 LAB L100.1900 150-450 K/mm3 Normal PLT 203 LAB L100.2000 6.2-12.0 fl Normal MPV 10.6 Performed By: #### L100.0500, L100.4500 #### [facility] [address] [place], [place], [address] DIFFERENTIAL COMMENT Collected: 04/05/2018 Status: F Source: [place] 11:08 AM [facility] REPOSITORY TYPE CODE TESTS RESULT OUT OF RANGE REFERENCE UNITS LAB L100.4500 Normal SMEAR COMMENT COMMENT Result Comment: SLIDE SCANNED - 1+ ANISO NOTED. Performed By: #### L100.0500, L100.4500 #### [facility] [address] [place], [address] COMPREHENSIVE METABOLIC Collected: 04/05/2018 Status: F Source: [facility] 11:08 AM [facility] REPOSITORY TYPE CODE TESTS RESULT OUT OF RANGE REFERENCE UNITS LAB L501.0100 74-106 mg/dL Normal GLU 86 Result Comment: Please note revised GLUCOSE reference range effective 2017. LAB L501.1000 7-18 mg/dL Normal BUN 11 LAB L501.1100 0.55-1.02 mg/dL High CREAT,SERUM 1.12 Result Comment: The validity of the calculated GFR AND GFRAA in patients over 70 years has not been determined. Clinical correlation is essential. LAB L501.1110 >60 mL/min Low EST GFR 54 Result Comment: Non- GFR Calc LAB L501.1115 >60 mL/min Normal EST GFR - AA 65 Result Comment: GFR Calc LAB L501.1300 10-20 RATIO Low BUN/CRE 9.8 LAB L501.1500 6.4-8.2 g/dL Low T PROT 5.8 LAB L501.1800 3.2-5.0 g/dL Low ALB 3.0 LAB L501.1950 2.2-4.2 g/dL Normal GLOB 2.8 LAB L501.2000 0.9-2.4 RATIO Normal A/G 1.1 LAB L501.2200 8.5-10.1 mg/dL Normal CA 8.6 LAB L501.4100 15-37 U/L High AST 43 Result Comment: Moderate Hemolysis, Result may be falsely increased. LAB L501.4305 45-117 U/L Normal ALK P 88 LAB L501.4405 13-56 U/L Normal ALT 22 LAB L501.4600 0.20-1.00 mg/dL High T BILI 2.50 LAB L501.5300 136-145 mmol/L Normal NA 144 LAB L501.5600 3.5-5.1 mmol/L Low K 3.3 Result Comment: Moderate Hemolysis, Result may be falsely increased. LAB L501.5900 98-107 mmol/L Normal CL 100 LAB L501.6100 21.0-32.0 mmol/L High CO2 35.0 LAB L501.6200 5-15 Normal 9 GAP Performed By: #### L500.4050 #### [facility] [address] [place], [address] AMMONIA Collected: 04/05/2018 Status: F Source: [place] 11:08 AM [facility] REPOSITORY TYPE CODE TESTS RESULT OUT OF RANGE REFERENCE UNITS LAB L503.5510 11-32 umol/L Normal AMMONIA 20.0 Performed By: #### L503.5510 #### [facility] [address] [place], [address] CARDIOLOGY VISIT Observed: 03/31/2018 Status: F Source: [place] REPORT 3:14 PM [facility] REPOSITORY [facility] [address] [place] [address] OFFICE VISIT Date of Service: 03/31/18 MR#: [id number] Acct: [id number] Name: Ifeoma Ashraf Rep #: [id number] : 1965 Provider: Boone Ch MD Age/Sex: 53/F Location: [facility] [place] Status: Signed HPI HPI Chief Complaint: Follow-up posthospitalization. Details: Ifeoma Hoosier, is a 53 F who presents to the office today for a follow-up visit. She has a past medical history of severe nonischemic cardiomyopathy with a 25% ejection fraction, AICD, diabetes mellitus type 2, morbid obesity, history of diffuse large B-cell lymphoma, pulmonary hypertension, mitral regurgitation and tricuspid regurgitation who presented to the emergency department at [facility] on 03/08/2018 after being found unresponsive in her bathroom. Vital signs at presentation to the emergency room were temp 37.3, pulse rate 88, respiratory rate 24, pressure 95/66 and pulse ox was 98% on a 2 L nasal cannula. Lab showed a low sodium of 129 with a potassium of 7.6. The BUN was 30 and the creatinine was 1.90. Creatinine in October 2017 was 0.85. Random blood sugar was 310 and a hemoglobin A1c was 5.7. Lactic acid was initially 12.4 and the patient had been taking metformin. Total bilirubin was elevated at 2.4 and the AST and ALT were increased at 149 and 120 respectively. Initial troponin was 0.081. The second troponin was 0.781. Brain CT was unremarkable. She was admitted to the intensive care unit and started on a bicarbonate drip. Diuretics were held. Metformin and lisinopril were held. She did require Levophed to maintain her pressure of with [...] On PE she was noted to have swelling of the left upper extremity and a venous Doppler was ordered and showed acute DVT in the left axillary and left brachial veins. She was started on Eliquis 2.5 mg twice daily. An arterial study was also ordered on the left upper extremity and the patient had normal circulation in the left arm. Interrogation of the AICD showed no VT/VF episodes since the last check in October 2017. She was weaned off pressors and transferred to the progressive care unit. She was eventually transferred to [facility]. Her major problem at this time is related to her memory issues as well as fatigue. She continues to have some pedal edema as well. She has not had any neck arm or jaw discomfort suggest angina though. Intake Vital Signs03/31/18 Height 5 ft 5 in 03/31/18 Weight: 230 lb 03/31/18 Body Mass Index (BMI) 38.2 03/31/18 Blood Pressure 100/58 03/31/18 Blood Pressure Location Lt brachial Intake Visit Reasons: DC to [facility] [address] [employer] Supervisor Required: No Accompanied by: mother Is patient in pain?: No Allergies amitriptyline Adverse Reaction (Severe, Verified 11/28/17 11:08) Nightmares naproxen sodium [From Aleve] Adverse Reaction (Severe, Verified 11/28/17 11:08) Swelling Sulfa (Sulfonamide Antibiotics) Adverse Reaction (Intermediate, Verified 11/28/17 11:08) Rash Latex, Natural Rubber Adverse Reaction (Mild, Verified 11/28/17 11:08) Other Medications Amitriptyline HCl 1 - 2 mg PO QHS PRN 03/07/18 [History Confirmed 03/08/18] Cholecalciferol (Vitamin D3) [Vitamin D3] 5,000 unit PO DAILY 03/07/18 [History Confirmed 03/08/18] Digoxin 125 mcg PO DAILY 03/07/18 [History Confirmed 03/08/18] Folic Acid 1 mg PO BIDCM 03/07/18 [History Confirmed 03/08/18] Gabapentin [Neurontin] 100 mg PO BID 03/07/18 [History Confirmed 03/08/18] Lamotrigine [Lamictal] 200 mg PO QHS 03/07/18 [History Confirmed 03/08/18] Omeprazole [Prilosec] 20 mg PO DAILY 03/07/18 [History Confirmed 03/08/18] Ondansetron HCl [Zofran] 4 mg PO Q8H PRN 03/07/18 [History Confirmed 03/07/18] Simvastatin [Zocor] 10 mg PO QHS 03/07/18 [History Confirmed 03/08/18] Venlafaxine HCl [Venlafaxine HCl ER] 150 mg PO DAILY 03/07/18 [History Confirmed 03/08/18] Apixaban [Eliquis] 5 mg PO BID #60 tab 03/12/18 [Rx] Melatonin 3 mg PO QHS #30 03/12/18 [Rx Confirmed 03/07/18] Sennosides [Senokot] 8.6 mg [...] [Rx] Ejection fraction %: 25 to 29 [facility] Medical History Nonrheumatic mitral (valve) insufficiency (Chronic) Non-rheumatic tricuspid valve insufficiency (Chronic) History of non-Hodgkin's lymphoma (Resolved) Anemia (Chronic) Deep vein thrombosis (DVT) of brachial vein of left upper extremity (Resolved) Cardiogenic shock (Resolved) Pulmonary hypertension (Chronic) Type 2 diabetes mellitus without complications (Chronic) Cardiomyopathy [...] History Presence of implantable cardioverter-defibrillator (ICD) (Chronic 11/10/17) History of cholecystectomy (Acute) History of stem cell transplant (Acute) Family History Father CVA (cerebral vascular accident) Diabetes Hypertension Mother Hypertension Brother Diabetes Hypertension Social History Smoking Status: Never smoker ROS Const Const: Negative for fatigue, weakness, night sweats, excessive sweating, frequent falls, headache(s) or daytime sleepiness Eyes Eyes: Negative for loss of peripheral vision, transient loss of vision, blind spots, double vision or blurry vision ENT ENT: Negative for headache(s), dizziness, balance problems, Nosebleed/epistaxis, tongue swelling or lip [...] bruising or rash Neuro Neuro: Negative for weakness, frequent falls, headache(s), double vision, dizziness, lightheadedness, orthostatic symptoms, blurry vision or lack of coordination Aniceto Hematologic/Lymphatic: Negative for easy bruising or easy bleeding Endo Endo: Negative for fatigue, excessive sweating, cold intolerance, heat intolerance, increased thirst/drinking or hair loss Psych Psych: Negative for anxiety or depression Allergy Allergy/Immunology: Negative for throat swelling, Negative for tongue [...] no nasal discharge Face and Sinus: face symmetric Mouth: oral mucosae normal, tongue normal, oropharynx normal and moist mucous membranes Teeth and gingiva: dentition normal Throat: posterior oropharynx normal, tonsils normal and uvula midline Eyes General: appearance [...] Extremity Edema: +2: Bilateral Musculoskel Musculoskeletal: No joint tenderness Psych Psychological: normal affect Assessment AND Plan 1. Cardiomyopathy in other diseases classified elsewhere I43 EF is 15% Plan She does have severe nonischemic cardiomyopathy. She is currently recovering from her recent hospitalization. Her blood pressures have been marginal but I would suggest that we continue her on her current medical therapy. I would like to obtain a chemistry profile to be able to appropriately adjust any diuretics. At this juncture it may be prudent to add Lasix 40 mg a day to her current regimen. 2. Presence of implantable cardioverter-defibrillator (ICD) Z95.810 Generator change 11/13 @ [facility] Dr. Ahmadi Plan She does have an implantable defibrillator which appears to be functioning well she had this interrogated at her last hospitalization. There were no VT or VF episodes noted. 3. Deep vein thrombosis (DVT) of brachial vein of left upper extremity I82.622 Plan She does have a DVT of her brachial vein and the recommendation will be for her to continue anti-coagulation for minimum of 3 months. 4. [...] months. 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 (health clinician) Coding Level of Care Code Off vis,est,level [...] I24.8 03/31/18 1514 <Electronically signed by Boone Ch MD> Date Boone Pacheco Signature: Date (if applicable) CC: Sangeetha Irvin DO URINALYSIS, ROUTINE Collected: 03/29/2018 Status: F Source: [facility] (DIPSTICK) 8:59 AM [facility] REPOSITORY Order Comment: COLOR OF URINE MAY AFFECT DIPSTICK RESULTS. How was Urine Obtained? CLEAN CATCH TYPE CODE TESTS RESULT OUT OF RANGE REFERENCE UNITS LAB L400.3000 Yellow COLOR Normal Lori LAB L400.3050 Clear Normal CLARITY Turbid LAB L400.3200 Normal mg/dl Normal GLUCOSE, UR Normal LAB L400.3300 Negative mg/dL High BILIRUBIN URINE 3 Result Comment: COLOR OF URINE MAY AFFECT DIPSTICK RESULTS. LAB L400.3400 Negative mg/dl High KETONE UR 5 LAB L400.3465 1.002-1.030 Normal SP.GR. DIPSTX 1.025 LAB L400.3550 5.0 - 8.0 pH Normal UR 5.0 LAB L400.3600 Negative mg/dl High PROT DIPSTX 100 LAB L400.3700 Normal mg/dl High UROBILI 8 LAB L400.3750 Negative High NITRITE UR Positive LAB L400.3780 Negative /ul High OCCULT 150 BLOOD-UR LAB L400.3800 Negative /ul High LEUK ESTERASE 500 Performed By: #### L400.2010 #### [facility] [address] [place], [address] CBC-COMPLETE BLOOD CNT Collected: 03/29/2018 Status: F Source: [place] NO DIFF 8:59 AM [facility] REPOSITORY TYPE CODE TESTS RESULT OUT OF RANGE REFERENCE UNITS LAB L100.1000 4.4-11.0 K/mm3 Normal WBC 5.8 LAB L100.1200 4.2-5.4 M/mm3 Low RBC 3.42 LAB L100.1300 12.0-15.0 g/dl Low HGB 10.9 LAB L100.1400 37-47 % Low HCT 34.5 LAB L100.1500 81-99 fL High MCV 100.9 LAB L100.1600 27.0-32.0 pg Normal MCH 31.9 LAB L100.1700 32-36 g/gl Low MCHC 31.6 LAB L100.1810 11.6-14.6 % High RDW CV 21.6 LAB L100.1820 35.1-43.9 fl High RDW SD 76.3 LAB L100.1900 150-450 K/mm3 Normal PLT 186 LAB L100.2000 6.2-12.0 fl Normal MPV 10.9 Performed By: #### L100.0500, L100.4500 #### [facility] [address] [place], [place], [address] DIFFERENTIAL COMMENT Collected: 03/29/2018 Status: F Source: [place] 8:59 AM [facility] REPOSITORY TYPE CODE TESTS RESULT OUT OF RANGE REFERENCE UNITS LAB L100.4500 Normal SMEAR COMMENT SCANNED Result Comment: 1+ MACROCYTES 1+ HYPOCHROMIA Performed By: #### L100.0500, L100.4500 #### [facility] [address] [place], [place], [address] BASIC METABOLIC Collected: 03/29/2018 Status: F Source: [place] PROFILE (BMP) 8:59 AM [facility] REPOSITORY TYPE CODE TESTS RESULT OUT OF RANGE REFERENCE UNITS LAB L501.0100 74-106 mg/dL High GLU 128 Result Comment: Fasting Glucose result greater than or equal to 126 mg/dL suggests DIABETES MELLITUS per A.D.A. criteria. Please note revised GLUCOSE reference range effective 2017. LAB L501.1000 7-18 mg/dL Normal BUN 13 LAB L501.1100 0.55-1.02 mg/dL High CREAT,SERUM 1.06 Result Comment: The validity of the calculated GFR AND GFRAA in patients over 70 years has not been determined. Clinical correlation is essential. LAB L501.1110 >60 mL/min Low EST GFR 57 Result Comment: Non- GFR Calc LAB L501.1115 >60 mL/min Normal EST GFR - AA 70 Result Comment: GFR Calc LAB L501.1300 10-20 RATIO Normal BUN/CRE 12.3 LAB L501.2200 8.5-10.1 mg/dL CA Normal 8.7 LAB L501.5300 136-145 mmol/L NA Normal 138 LAB L501.5600 3.5-5.1 mmol/L K Normal 3.8 LAB L501.5900 98-107 mmol/L CL Normal 101 LAB L501.6100 21.0-32.0 mmol/L Normal CO2 26.0 LAB L501.6200 5-15 Normal GAP 11 Performed By: #### L500.2500, L501.9520 #### [facility] [address] [facility] [facility] [place], [place], [id number] THYROID STIM HORMONE Collected: 03/29/2018 Status: F Source: [facility] (TSH) 8:59 AM [facility] REPOSITORY TYPE CODE TESTS RESULT OUT OF RANGE REFERENCE UNITS LAB L501.9520 0.358-3.74 uIU/mL High TSH 4.41 Performed By: #### L500.2500, L501.9520 #### [facility] [address] [facility] [facility] [place], [place], [address] Observed: 03/29/2018 Status: F Source: [facility] CULTURE, URINE 8:59 AM [facility] REPOSITORY Urine Culture ORGANISM 1: Citrobacter freundii [place] Count >100,000 Citrobacter freundii: REACTION Amoxacillin/Clavulanic Acid $ 16 R Cefazolin $ >=64 R Cefepime $ <=1 S Ceftriaxone $ <=1 S Ciprofloxacin $ 0.5 S Ertapenim $$$ <=0.5 S Gentamicin $ <=1 S Imipenem *NF 1 S Levofloxacin $ 1 S Nitrofurantoin $ <=16 S Tobramycin $ <=1 S Trimethoprim/Sulfametho $ <=20 S (NF) indicates non-formulary drug at [facility]. Approval by Infectious Disease Specialist required before non-formulary drugs may be ordered and/or dispensed. Performed By: #### M100.0650 #### [facility] [address] [place], [place], [address] CBC-COMPLETE BLOOD CNT Collected: 03/24/2018 Status: F Source: [facility] NO DIFF 6:45 AM [facility] REPOSITORY Order Comment: 415 TYPE CODE TESTS RESULT OUT OF RANGE REFERENCE UNITS LAB L100.1000 4.4-11.0 K/mm3 Normal WBC 5.2 LAB L100.1200 4.2-5.4 M/mm3 Low RBC 3.71 LAB L100.1300 12.0-15.0 g/dl Low HGB 11.5 LAB L100.1400 37-47 % Normal HCT 37.8 LAB L100.1500 81-99 fL High MCV 101.9 LAB L100.1600 27.0-32.0 pg Normal MCH 31.0 LAB L100.1700 32-36 g/gl Low MCHC 30.4 LAB L100.1810 11.6-14.6 % High RDW CV 21.0 LAB L100.1820 35.1-43.9 fl High RDW SD 78.4 LAB L100.1900 150-450 K/mm3 Low PLT 137 LAB L100.2000 6.2-12.0 fl Normal MPV 11.9 Performed By: #### L100.0500, L100.4500 #### [facility] [address] [place], [place], [address] DIFFERENTIAL COMMENT Collected: 03/24/2018 Status: F Source: [place] 6:45 AM [facility] REPOSITORY Order Comment: 415 TYPE CODE TESTS RESULT OUT OF RANGE REFERENCE UNITS LAB L100.4500 Normal SMEAR COMMENT COMMENT Result Comment: SLIDE SCANNED - 1+ ANISO. Performed By: #### L100.0500, L100.4500 #### [facility] [address] [place], [address] BASIC METABOLIC Collected: 03/24/2018 Status: F Source: [facility] PROFILE (BMP) 6:45 AM [facility] REPOSITORY Order Comment: 415 TYPE CODE TESTS RESULT OUT OF RANGE REFERENCE UNITS LAB L501.0100 74-106 mg/dL Normal GLU 80 Result Comment: Please note revised GLUCOSE reference range effective 2017. LAB L501.1000 7-18 mg/dL Normal BUN 12 LAB L501.1100 0.55-1.02 mg/dL Normal CREAT,SERUM 0.94 Result Comment: The validity of the calculated GFR AND GFRAA in patients over 70 years has not been determined. Clinical correlation is essential. LAB L501.1110 >60 mL/min Normal EST GFR 66 Result Comment: Non- GFR Calc LAB L501.1115 >60 mL/min Normal EST GFR - AA 80 Result Comment: GFR Calc LAB L501.1300 10-20 RATIO Normal BUN/CRE 12.7 LAB L501.2200 8.5-10.1 mg/dL CA Normal 8.7 LAB L501.5300 136-145 mmol/L NA Normal 140 LAB L501.5600 3.5-5.1 mmol/L K Normal 4.0 LAB L501.5900 98-107 mmol/L CL Normal 101 LAB L501.6100 21.0-32.0 mmol/L Normal CO2 28.0 LAB L501.6200 5-15 Normal GAP 11 Performed By: #### L500.2500 #### [facility] [address] [place], [place], [address] CBC-COMPLETE BLOOD CNT Collected: 03/17/2018 Status: F Source: [facility] NO DIFF 5:33 AM [facility] REPOSITORY TYPE CODE TESTS RESULT OUT OF RANGE REFERENCE UNITS LAB L100.1000 4.4-11.0 K/mm3 Normal WBC 5.3 LAB L100.1200 4.2-5.4 M/mm3 Low RBC 3.39 LAB L100.1300 12.0-15.0 g/dl Low HGB 10.4 LAB L100.1400 37-47 % Low HCT 33.3 LAB L100.1500 81-99 fL Normal MCV 98.2 LAB L100.1600 27.0-32.0 pg Normal MCH 30.7 LAB L100.1700 32-36 g/gl Low MCHC 31.2 LAB L100.1810 11.6-14.6 % High RDW CV 19.6 LAB L100.1820 35.1-43.9 fl High RDW SD 68.6 LAB L100.1900 150-450 K/mm3 Normal PLT 178 LAB L100.2000 6.2-12.0 fl Normal MPV 11.6 Performed By: #### L100.0500, L100.4500 #### [facility] [address] [place], [address] DIFFERENTIAL COMMENT Collected: 03/17/2018 Status: F Source: [facility] 5:33 AM [facility] REPOSITORY TYPE CODE TESTS RESULT OUT OF RANGE REFERENCE UNITS LAB L100.4500 Normal SMEAR COMMENT Result Comment: ANISOCYTOSIS 2+ Performed By: #### L100.0500, L100.4500 #### [facility] [address] [place], [address] BASIC METABOLIC Collected: 03/17/2018 Status: F Source: [facility] PROFILE (BMP) 5:33 AM [facility] REPOSITORY TYPE CODE TESTS RESULT OUT OF RANGE REFERENCE UNITS LAB L501.0100 74-106 mg/dL Normal GLU 96 Result Comment: Please note revised GLUCOSE reference range effective 2017. LAB L501.1000 7-18 mg/dL High BUN 29 LAB L501.1100 0.55-1.02 mg/dL High CREAT,SERUM 1.13 Result Comment: The validity of the calculated GFR AND GFRAA in patients over 70 years has not been determined. Clinical correlation is essential. LAB L501.1110 >60 mL/min Low EST GFR 53 Result Comment: Non- GFR Calc LAB L501.1115 >60 mL/min Normal EST GFR - AA 65 Result Comment: GFR Calc LAB L501.1300 10-20 RATIO High BUN/CRE 25.7 LAB L501.2200 8.5-10.1 mg/dL CA Normal 8.6 LAB L501.5300 136-145 mmol/L Low NA 133 LAB L501.5600 3.5-5.1 mmol/L K Normal 4.6 LAB L501.5900 98-107 mmol/L CL Normal 99 LAB L501.6100 21.0-32.0 mmol/L Normal CO2 24.0 LAB L501.6200 5-15 Normal GAP 10 Performed By: #### L500.2500 #### [facility] [address] [place], [address] DISCHARGE SUMMARY Observed: 03/14/2018 Status: F Source: [facility] 5:30 PM [facility] REPOSITORY [facility] Medical Records Department [address] [place] [address] Discharge Summary 03/14/18 1702 MR#: [id number] Acct: [id number] Name: IFEOMA ASHRAF Rep #: [id number] : 1965 53 From: Colt Campos DO PCP: Sangeetha Irvin DO Status: ADM IN Y Location: [place] [address] Discharge Date and Diagnosis - Problem List Patient Problems: Active and Suspected Problems (Last Reviewed 03/08/18 @ 02:42 by Monique Tamez DO) Metabolic acidosis (Acute) Lactic acid 12.4 at admission Hyperkalemia (Acute) Syncope (Acute) FAN (acute kidney injury) (Acute) DVT of axillary vein, acute left (Acute) Deep vein thrombosis (DVT) of brachial vein of left upper extremity (Acute) Acute metabolic encephalopathy (Acute) Cardiogenic shock (Acute) Demand ischemia (Acute) Date of Admission: 03/08/18 Date of Discharge: 03/14/18 - Primary Discharge Diagnosis Active and Suspected Problems (Last Reviewed 03/08/18 @ 02:42 by Monique Tamez DO) Metabolic acidosis (Acute) - Lactic acid 12.4 at admission Hyperkalemia (Acute) Syncope (Acute) FAN (acute kidney injury) (Acute) DVT of axillary vein, acute left (Acute) Deep vein thrombosis (DVT) of brachial vein of left upper extremity (Acute) Acute metabolic encephalopathy (Acute) Cardiogenic shock (Acute) Demand ischemia (Acute) Acute respiratory insufficiency - Secondary Discharge Diagnosis Chronic Problems (Last Reviewed 03/08/18 @ 02:42 by Monique Tamez DO) Anemia (Chronic) Pulmonary hypertension (Chronic) PA systolic estimated at 53 on echocardiogram done in February 2018 Mitral regurgitation (Chronic) - 3+ Tricuspid regurgitation (Chronic) - 3+ Type 2 diabetes mellitus without complications (Chronic) S/P implantation of automatic cardioverter/defibrillator (AICD) (Chronic) 10/06/2009 @ [facility] Nonischemic cardiomyopathy in other diseases classified elsewhere (Chronic) EF is 15% with global left ventricular dysfunction and no wall motion abnormalities Abnormal electrocardiogram (Chronic) Shortness of breath (Chronic) Diffuse large B-cell lymphoma (Chronic) Chronic renal failure stage III Hospital Course and Treatment Imaging Results: Clinical Impression(s) from Imaging Studies Chest X-Ray 03/07/18 22:32 IMPRESSION: Moderate cardiomegaly with no evidence of pulmonary vascular congestion. Electronically Signed: Lamberto ArreolaDO at 23:00 EDT , Service support , Chest X-Ray 03/07/18 23:47 IMPRESSION: Right internal jugular central line with the tip at the junction of superior vena cava and right atrium, in its expected location. No pneumothorax. Stable cardiomegaly. Electronically Signed: Jin Rolon MD at 0:12 EDT , Service support , Brain CT 03/08/18 00:27 IMPRESSION: Normal unenhanced CT scan of the brain. Electronically Signed: Jin Rolon MD at 1:58 EDT , Service support , KUB X-Ray 03/08/18 02:59 IMPRESSION: Nonspecific bowel gas pattern without evidence of obstruction. Electronically Signed: Jin Rolon MD at 4:14 EDT , Service support , Laboratory Results - last 24 hr POC Glucose 196 H 109 124 H POC Glucose [address] Boone Ch-cardiology Dr. Patrick Willson-box cutter Operations: None Procedures: 2-D Echocardiogram Summary of Care Provided: The patient is a 53 year old F with a past medical history of severe nonischemic cardiomyopathy with a 25% ejection fraction, AICD, diabetes mellitus type 2, morbid obesity, history of diffuse large B-cell lymphoma, pulmonary hypertension, mitral regurgitation and tricuspid regurgitation who presented to the emergency department at [facility] on 03/08/2018 after being found unresponsive in her bathroom. Vital signs at presentation to the emergency room were temp 37.3, pulse rate 88, respiratory rate 24, pressure 95/66 and pulse ox was 98% on a 2 L nasal cannula. Lab showed a low sodium of 129 with a potassium of 7.6. The BUN was 30 and the creatinine was 1.90. Creatinine in October 2017 was 0.85. Random blood sugar was 310 and a hemoglobin A1c was 5.7. Lactic acid was initially 12.4 and the patient had been taking metformin. Total bilirubin was elevated at 2.4 and the AST and ALT were increased at 149 and 120 respectively. Initial troponin was 0.081. The second troponin was 0.781. Brain CT was unremarkable. She was admitted to the intensive care unit and started on a bicarbonate drip. Diuretics were held. Metformin and lisinopril were held. Consult patient was ordered for Dr. Willson. Dr. Ch was also consulted. The acidosis progressively improved. She did require Levophed to maintain her pressure of with a mean systolic of 65. An echocardiogram showed an ejection fraction of 15% which was down from her last echocardiogram that showed 25% ejection fraction. There were no segmental wall motion abnormalities noted. The PA pressure was elevated at 53 and she had 2+ tricuspid valve regurgitation and 3+ mitral valve regurgitation. Dr. Ch recommended weaning Levophed as tolerated. He felt the increase in troponin was likely secondary to demand ischemia since the patient has normal coronary arteries on cardiac catheterization. On PE she was noted to have swelling of the left upper extremity and a venous Doppler was ordered and showed acute DVT in the left axillary and left brachial veins. She was started on Eliquis 2.5 mg twice daily at the recommendation of Dr. Ch. An arterial study was also ordered on the left upper extremity and the patient had normal circulation in the left arm. Interrogation of the AICD showed no VT/VF episodes since the last check in October 2017. She was weaned off pressors and transferred to the progressive care unit. Discharge was planned for 03/12/2018 however the patient felt she was too weak to go home and so she was held in the hospital until precertification could be obtained for transfer to fdc. She was transferred to [facility] on 03/14/2018 for PT/OT/strengthening prior to returning home. She should follow up with Dr. Ch she should follow-up with Dr. Sangeetha Irvin in 1-2 weeks. Within 2 weeks. She will follow-up with her psychologist as previously scheduled. Physical exam: General: Alert, Oriented x3, Cooperative, No apparent distress. good mood and good color in her face HEENT: Atraumatic, PERRLA, EOMI, Normocephalic Oral: Moist Mucosa Neck: Supple, No JVD, Negative Carotid Bruits Lungs: Clear to auscultation, Normal air movement, no conversational dyspnea and she had symmetric chest rise. Cardiovascular: Regular rate, Regular Rhythm, Normal S1, Normal S2, No murmurs, no gallop, no rub Abdomen: Bowel Sounds Present, Soft, Non Tender, Non-Distended, No Hepato-splenomegaly Extremities: No pitting edema Skin: No rashes Musculoskeletal: No Tenderness to Palpation of Joints or Extremities Lymphatic: No Cervical, Supraclavicular, or Inguinal Adenopathy Neurological: Cranial nerves II-XII grossly intact Psych/Mental Status: Normal Affect, Appropriate Discharge Activity: Return to Normal Activity Home Medications: Medications to take at Discharge Amitriptyline HCl 1 - 2 mg PO QHS PRN 03/07/18 Cholecalciferol (Vitamin D3) [Vitamin D3] 5,000 unit PO DAILY 03/07/18 Digoxin 125 mcg PO DAILY 03/07/18 Folic Acid 1 mg PO BIDCM 03/07/18 Gabapentin [Neurontin] 100 mg PO BID 03/07/18 Lamotrigine [Lamictal] 200 mg PO QHS 03/07/18 Omeprazole [Prilosec] 20 mg PO DAILY 03/07/18 Ondansetron HCl [Zofran] 4 mg PO Q8H PRN 03/07/18 Simvastatin [Zocor] 10 mg PO QHS 03/07/18 Venlafaxine HCl [Venlafaxine HCl ER] 150 mg PO DAILY 03/07/18 Apixaban [Eliquis] 5 mg PO BID #60 tab 03/12/18 Melatonin 3 mg PO QHS #30 03/12/18 Sennosides [Senokot] 8.6 mg PO DAILY PRN #0 03/12/18 Carvedilol [Coreg (Beta Stephanie)] 3.125 mg PO BID tablet 03/14/18 Clonazepam [Klonopin] 1 mg PO QHS #10 tab 03/14/18 Levothyroxine [Synthroid] 50 mcg PO DAILY #1 03/14/18 Oxycodone [Oxyir] 5 mg PO Q6H PRN PRN 7 Days #28 tab 03/14/18 Following Prescrptions Were Given to Patient: Oxycodone [Oxyir] 5 mg PO Q6H PRN PRN 7 Days #28 tab PRN Reason: Severe Pain (-07/05) Clonazepam [Klonopin] 1 mg PO QHS #10 tab Apixaban [Eliquis] 5 mg PO BID #60 tab Primary Care Physician: Sangeetha Irvin DO [Primary Care Provider] - Please follow up with your Primary Care Physician in: in 1- 2 weeks Please Follow Up With: Boone Ch MD When: within 2 weeks When: Psychologist as scheduled Disposition: Intermediate facility [facility] Minutes spent on discharge:: 40 Patient Condition:: Stable Medical Necessity - Tobacco Use Smoking Status: Never smoker Tobacco Use: Non-smoker Meaningful Use Info Meaningful Use Diagnoses (Choose all that apply): None applicable Code Visit Inpatient E AND M: 43245 Disch Hosp 03/14/18 1730 <Electronically signed by Colt Campos DO> Date Colt Campos DO [facility] Signature (if applicable): Date CC: Kitty Campos; Boone Ch MD; Sangeetha Irvin DO Signed TRANSFER TO EXTENDED Observed: 03/14/2018 Status: F Source: [facility] 5:02 PM [facility] REPOSITORY [facility] Medical Records Department [address] [place] [id number] Transfer to Extended Care MR#: [id number] Acct: [id number] Name: IFEOMA ASHRAF Rep #: [id number] : 1965 53 From: Colt Campos DO PCP: Sangeetha Irvin DO Status: ADM IN IFEOMA ASHRAF (Patient) (Health Ins. Claim No.) (Day of Discharge to Facility) Certification of patient admission REQUIRED AT TIME OF ADMISSION. I CERTIFY THAT POST-HOSPITAL ECF SERVICES ARE REQUIRED TO BE GIVEN ON AN IN-PATIENT BASIS BECAUSE OF THE ABOVE NAMED PATIENT'S NEED FOR ALF CARE ON A CONTINUING BASIS FOR THE CONDITION(S) FOR WHICH HE/SHE WAS RECEIVING IN-PATIENT HOSPITAL SERVICES PRIOR TO HIS/HER TRANSFER TO THE [facility]. 03/14/18 1702 <Electronically signed by Colt Gonzalez Julianjose DAVIS> Date Colt Campos DO - Diet 03/08/18 02:34 Diet: Cardiac/Low Cholesterol, carb controlled, low sodium Food consistency:: Soft Liquid Consistency:: Regular/Thin Dietary Modifications:: Soft Diet Diet Comments: supervision during meals; pills ok whole with water - Routine Orders/Code Status Enema Type: Fleetz Enema Frequency: Daily PRN Suppository Type: Dulcolax 10mg Suppository Frequency: Daily PRN - Wound(s) Right Fine Wound Type: scab - Therapies Weight Bearing: Full weight bearing Physical Therapy: Eval and Treat Occupational Therapy: Eval and Treat - Problem/Diagnosis (1) DVT of axillary vein, acute left Status: Acute Current Visit: Yes (2) Deep vein thrombosis (DVT) of brachial vein of left upper extremity Status: Acute Current Visit: Yes (3) Acute metabolic encephalopathy Status: Acute Current Visit: Yes (4) Cardiogenic shock Status: Acute Current Visit: Yes (5) Demand ischemia Status: Acute Current Visit: Yes (6) FAN (acute kidney injury) Status: Acute Current Visit: Yes (7) Hyperkalemia Status: Acute Current Visit: Yes (8) Metabolic acidosis Status: Acute Comment: Lactic acid 12.4 at admission Current Visit: Yes (9) Syncope Status: Acute Current Visit: Yes (10) Anemia Status: Chronic Current Visit: No (11) snf use of drug Status: Acute Current Visit: No (12) Abnormal electrocardiogram Status: Chronic Current Visit: No (13) Cardiomyopathy in other diseases classified elsewhere Status: Chronic Comment: EF is 15% Current Visit: No (14) Diffuse large B-cell lymphoma Status: Chronic Current Visit: No (15) S/P implantation of automatic cardioverter/defibrillator (AICD) Status: Chronic Comment: 10/06/2009 @ [facility] Current Visit: No (16) Shortness of breath Status: Chronic Current Visit: No (17) Type 2 diabetes mellitus without complications Status: Chronic Current Visit: No (18) History of non-Hodgkin's lymphoma Status: Resolved Current Visit: No (19) Pulmonary hypertension Status: Chronic Comment: PA systolic estimated at 53 on echocardiogram done in February 2018 Current Visit: Yes (20) Mitral regurgitation Status: Chronic Comment: 3+ Current Visit: Yes (21) Tricuspid regurgitation Status: Chronic Comment: 3+ Current Visit: Yes - Allergies/Procedures Done in Hospital Allergies/Adverse Reactions: Allergies amitriptyline Adverse Reaction (Severe, Verified 11/28/17 11:08) Nightmares naproxen sodium [From Aleve] Adverse Reaction (Severe, Verified 11/28/17 11:08) Swelling Nasal swelling - causing difficulty breathing Sulfa (Sulfonamide Antibiotics) Adverse Reaction (Intermediate, Verified 11/28/17 11:08) Rash Latex, Natural Rubber Adverse Reaction (Mild, Verified 11/28/17 11:08) Other irritates/smith the skin Procedures: 2-D Echocardiogram - Moderately dilated left ventricle with a 15% ejection fraction and no segmental wall motion abnormalities. Severe, stage III, diastolic dysfunction. 3+ mitral valve insufficiency. Pulmonary hypertension with a PA systolic pressure estimated at 53. 2+ tricuspid valve insufficiency. - Type of Care/Length of Stay Estimated LOS: Convalescent Care Less Than 30 days Type of Care Needed: Skilled Rehab Potential: Fair Prognosis: Fair - Additional Orders/Day of Discharge H AND P will serve as current which was dated: 03/08/18 Day of Discharge: 03/14/18 - Dietary and Speech Recommendations Dietitian Recommendations/Changes: Recommend change diet to Carbohydrate Controlled, Low Sodium. Continue Glucerna as ordered on medpass. Will provide Glucerna w/ meals for additional calories and protein as intake compromised at meals. - Follow Up Care Primary Care Physician: Sangeetha Irvin DO [Primary Care Provider] - Please follow up with your Primary Care Physician in: in 1- 2 weeks Please Follow Up With: Boone Ch MD When: within 2 weeks When: Psychologist as scheduled 03/14/18 4962 <Electronically signed by Colt Campos DO> Date Colt Gonzalez Beth DO CC: Patrick Willson MD; Boone Ch MD; Sangeetha Irvin DO Signed BEDSIDE GLUCOSE Collected: 03/14/2018 Status: F Source: [place] 4:26 PM [facility] REPOSITORY TYPE CODE TESTS RESULT OUT OF REFERENCE UNITS RANGE LAB L501.080 70-110 mg/dL High BEDSIDE GLU 149 Result Comment: MANAGEMENT OF PATIENT CARE PER NURSING PROTOCOL Performed By: #### L501.080 #### [facility] Point of Care [address] [place] [address] BEDSIDE GLUCOSE Collected: 03/14/2018 Status: F Source: [place] 11:05 AM [facility] REPOSITORY TYPE CODE TESTS RESULT OUT OF REFERENCE UNITS RANGE LAB L501.080 70-110 mg/dL High BEDSIDE GLU 124 Result Comment: MANAGEMENT OF PATIENT CARE PER NURSING PROTOCOL Performed By: #### L501.080 #### [facility] Point of Care [address] [place] [address] BEDSIDE GLUCOSE Collected: 03/14/2018 Status: F Source: [place] 6:53 AM [facility] REPOSITORY TYPE CODE TESTS RESULT OUT OF RANGE REFERENCE UNITS LAB L501.080 70-110 mg/dL Normal BEDSIDE GLU 109 Result Comment: MANAGEMENT OF PATIENT CARE PER NURSING PROTOCOL Performed By: #### L501.080 #### [facility] Point of Care [address] [place] [address] BEDSIDE GLUCOSE Collected: 03/13/2018 Status: F Source: [place] 9:30 PM [facility] REPOSITORY TYPE CODE TESTS RESULT OUT OF REFERENCE UNITS RANGE LAB L501.080 70-110 mg/dL High BEDSIDE GLU 196 Result Comment: Insulin Given MANAGEMENT OF PATIENT CARE PER NURSING PROTOCOL Performed By: #### L501.080 #### [facility] Point of Care [address] [place] [address] BEDSIDE GLUCOSE Collected: 03/13/2018 Status: F Source: [place] 4:12 PM [facility] REPOSITORY TYPE CODE TESTS RESULT OUT OF REFERENCE UNITS RANGE LAB L501.080 70-110 mg/dL High BEDSIDE GLU 136 Result Comment: MANAGEMENT OF PATIENT CARE PER NURSING PROTOCOL Performed By: #### L501.080 #### [facility] Point of Care [address] [place] [address] BEDSIDE GLUCOSE Collected: 03/13/2018 Status: F Source: [place] 12:35 PM [facility] REPOSITORY TYPE CODE TESTS RESULT OUT OF REFERENCE UNITS RANGE LAB L501.080 70-110 mg/dL High BEDSIDE GLU 176 Result Comment: MANAGEMENT OF PATIENT CARE PER NURSING PROTOCOL Performed By: #### L501.080 #### [facility] Point of Care [address] [place] [address] 12 LEAD ELECTROCARDIOGRAM Observed: 03/13/2018 Status: F Source: [place] 8:42 AM [facility] REPOSITORY [facility] Cardiovascular Services [address] [place] [address] 12 Lead EKG 03/07/18 2244 MR#: [id number] Acct: [id number] Name: IFEOMA ASHRAF Ashok Rep #: [id number] : 1965 52 From: Boone Ch MD Attending Dr: Kitty Campos Status: ADM IN Ordering Dr: Alejandro Lopez DO Date: 03/07/18 Location: [facility] Sex: F C Admitted: 03/08/18 Test Reason : REPEAT Blood Pressure : / mmHG Vent. Rate : 073 BPM Atrial Rate : 085 BPM P-R Int : 000 ms QRS Dur : 010 ms QT Int : 356 ms P-R-T Axes : 000 000 001 degrees QTc Int : 392 ms Accelerated Junctional rhythm with ventricular escape complexes Indeterminate axis ST AND T wave abnormality, consider anterolateral ischemia Abnormal ECG Confirmed by BOONE CH MD ([id number]), assignment desk editor ASHLI CHAN ([id number]) on 03/08/2018 5:10:57 PM Referred By: JOHN Confirmed By:BOONE CH MD 03/08/18 1710 Date Boone Ch MD CC: Kitty Campos; Alejandro Lopez DO; Sangeetha Irvin DO Signed 12 LEAD ELECTROCARDIOGRAM Observed: 03/13/2018 Status: F Source: [place] 8:42 AM [facility] REPOSITORY [facility] Cardiovascular Services [address] [place] [address] 12 Lead EKG 03/07/18 2322 MR#: [id number] Acct: [id number] Name: SEANIFEOMA Pulido Rep #: [id number] : 1965 52 From: Boone Ch MD Attending Dr: Kitty Campos Status: ADM IN Ordering Dr: Alejandro Lopez DO Date: 03/07/18 Location: [facility] Sex: F C Admitted: 03/08/18 Test Reason : REPEAT #3 Blood Pressure : / mmHG Vent. Rate : 087 BPM Atrial Rate : 087 BPM P-R Int : 244 ms QRS Dur : 166 ms QT Int : 432 ms P-R-T Axes : 058 -62 073 degrees QTc Int : 519 ms Sinus rhythm with 1st degree A-V block Left axis deviation Left bundle branch block Abnormal ECG Confirmed by BOONE CH MD ([id number]), assignment desk editor ASHLI CHAN ([id number]) on 03/08/2018 5:11:19 PM Referred By: JOHN Confirmed By:BOONE CH MD 03/08/18 171 Date Boone Ch MD CC: Kitty Campos; Alejandro Lopez DO; Sangeetha Irvin DO Signed 12 LEAD ELECTROCARDIOGRAM Observed: 03/13/2018 Status: F Source: [place] 8:41 AM [facility] REPOSITORY [facility] Cardiovascular Services [address] [place] [address] 12 Lead EKG 03/07/18 2304 MR#: [id number] Acct: [id number] Name: SEANIFEOMA Rep #: [id number] : 1965 52 From: Boone Ch MD Attending Dr: Kitty Campos Status: ADM IN Ordering Dr: Alejandro Lopez DO Date: 03/07/18 Location: [facility] Sex: F C Admitted: 03/08/18 Test Reason : CHEST PAIN Blood Pressure : / mmHG Vent. Rate : 083 BPM Atrial Rate : 083 BPM P-R Int : 270 ms QRS Dur : 152 ms QT Int : 446 ms P-R-T Axes : 020 -59 088 degrees QTc Int : 524 ms Sinus rhythm with 1st degree A-V block Left axis deviation Non-specific intra-ventricular conduction block Lateral infarct , age undetermined Inferior infarct , age undetermined Abnormal ECG Confirmed by BOONE CH MD ([id number]), assignment desk editor ASHLI CHAN ([id number]) on 03/08/2018 5:05:31 PM Referred By: ALEJANDRO LOPEZ Confirmed By:BOONE CH MD 03/08/18 170 Date Boone Ch MD CC: Kitty Campos; Alejandro Loepz DO; Sangeetha Irvin DO Signed 12 LEAD ELECTROCARDIOGRAM Observed: 03/13/2018 Status: F Source: [place] 8:41 AM [facility] REPOSITORY [facility] Cardiovascular Services [address] [place] [address] 12 Lead EKG 03/07/185 MR#: [id number] Acct: [id number] Name: IFEOMA ASHRAF Rep #: [id number] : 1965 52 From: Boone Ch MD Attending Dr: Kitty Campos Status: ADM IN Ordering Dr: Alejandro Lopez DO Date: 03/07/18 Location: [facility] Sex: F C Admitted: 03/08/18 Test Reason : ALT LOC/FALL Blood Pressure : / mmHG Vent. Rate : 085 BPM Atrial Rate : 085 BPM P-R Int : 000 ms QRS Dur : 148 ms QT Int : 524 ms P-R-T Axes : 000 -59 094 degrees QTc Int : 623 ms Sinus bradycardia Left bundle branch block Left axis deviation Non-specific intra-ventricular conduction block Lateral infarct , age undetermined Inferior infarct , age undetermined Abnormal ECG Confirmed by BOONE CH MD ([id number]), assignment desk editor ASHLI CHAN ([id number]) on 03/08/2018 5:06:23 PM Referred By: JOHN Confirmed By:BOONE CH MD 03/08/18 170 Date Boone Ch MD CC: Kitty Campos; Alejandro Lopez DO; Sangeetha Irvin DO Signed BEDSIDE GLUCOSE Collected: 03/13/2018 Status: F Source: [place] 6:54 AM [facility] REPOSITORY TYPE CODE TESTS RESULT OUT OF REFERENCE UNITS RANGE LAB L501.080 70-110 mg/dL High BEDSIDE GLU 112 Result Comment: MANAGEMENT OF PATIENT CARE PER NURSING PROTOCOL Performed By: #### L501.080 #### [facility] Point of Care [address] [place], [place] [address] BEDSIDE GLUCOSE Collected: 03/12/2018 Status: F Source: [place] 10:06 PM [facility] REPOSITORY TYPE CODE TESTS RESULT OUT OF REFERENCE UNITS RANGE LAB L501.080 70-110 mg/dL High BEDSIDE GLU 149 Result Comment: MANAGEMENT OF PATIENT CARE PER NURSING PROTOCOL Performed By: #### L501.080 #### [facility] Point of Care [address] [place], [place] [address] BEDSIDE GLUCOSE Collected: 03/12/2018 Status: F Source: [place] 4:23 PM [facility] REPOSITORY TYPE CODE TESTS RESULT OUT OF REFERENCE UNITS RANGE LAB L501.080 70-110 mg/dL High BEDSIDE GLU 116 Result Comment: MANAGEMENT OF PATIENT CARE PER NURSING PROTOCOL Performed By: #### L501.080 #### [facility] Point of Care [address] [place] [address] DISCHARGE INSTRUCTION Observed: 03/12/2018 Status: F Source: [place] 11:30 AM [facility] REPOSITORY [facility] Medical Records Department [address] [place] [address] Instructions for Home/Discharge Instructions 03/12/18 1123 MR#: [id number] Acct: [id number] Name: IFEOMA ASHRAF Rep #: [id number] : 1965 53 From: Maricarmen Nguyen MD PCP: Sangeetha Irvin DO Status: ADM IN - Discharge Diagnoses Current Active Problems: Current Active and Chronic Problems (Last Reviewed 03/08/18 @ 02:42 by Monique Tamez DO) Metabolic acidosis (Acute) Hyperkalemia (Acute) Syncope (Acute) FAN (acute kidney injury) (Acute) Reason(s) for Visit for Discharge Instructions: Unresponsiveness You will use the following diet at home:: Calorie/Carbohydrate Controlled (specify 1200, 1400, etc), Cardiac Your food should be the consistency of: Regular Your liquids should be the consistency of: Regular/Thin Discharge Activity: Return to Normal Activity Additional Instructions: Take note of changes to your medications. Some of your medications have been put on hold. You need repeat blood work to be done in 3 days and follow-up up with your primary care doctor within 1-2 weeks. You should continue to check your blood sugar frequently. Follow-up with your psychologist and psychiatrist as scheduled. Follow-up with Dr. Ch in the outpatient to discuss restarting back some of your heart medicines stopped in the hospital because of blood pressure and worsening kidney function. Continue to take your blood thinners for the blood clot in your left upper extremity. Look out for any bleeding gums, blood in your stools, urine or black stools. Allergies/Adverse Reactions: Allergies amitriptyline Adverse Reaction (Severe, Verified 11/28/17 11:08) Nightmares naproxen sodium [From Aleve] Adverse Reaction (Severe, Verified 11/28/17 11:08) Swelling Nasal swelling - causing difficulty breathing Sulfa (Sulfonamide Antibiotics) Adverse Reaction (Intermediate, Verified 11/28/17 11:08) Rash Latex, Natural Rubber Adverse Reaction (Mild, Verified 11/28/17 11:08) Other irritates/simth the skin Medications to take at Discharge Amitriptyline HCl 1 - 2 mg PO QHS PRN 03/07/18 Carvedilol [Coreg] 0.5 tab PO BID 03/07/18 Cholecalciferol (Vitamin D3) [Vitamin D3] 5,000 unit PO DAILY 03/07/18 Clonazepam [Klonopin] 1 mg PO QHS 03/07/18 Digoxin 125 mcg PO DAILY 03/07/18 Folic Acid 1 mg PO BIDCM 03/07/18 Gabapentin [Neurontin] 100 mg PO BID 03/07/18 Lamotrigine [Lamictal] 200 mg PO QHS 03/07/18 Levothyroxine [Synthroid] 50 mcg PO MOTUWETHFR 03/07/18 Levothyroxine [Synthroid] 50 mcg PO SUSA 03/07/18 Omeprazole [Prilosec] 20 mg PO DAILY 03/07/18 Ondansetron HCl [Zofran] 4 mg PO Q8H PRN 03/07/18 Simvastatin [Zocor] 10 mg PO QHS 03/07/18 Venlafaxine HCl [Venlafaxine HCl ER] 150 mg PO DAILY 03/07/18 Vicodin 5-500 Mg Tablet 5 - 500 mg PO Q6H PRN 03/07/18 Apixaban [Eliquis] 5 mg PO BID #60 tab 03/12/18 Melatonin 3 mg PO QHS #30 03/12/18 Sennosides [Senokot] 8.6 mg PO DAILY PRN #0 03/12/18 The following prescriptions were given: Apixaban [Eliquis] 5 mg PO BID #60 tab Primary Care Physician: Sangeetha Irvin DO [Primary Care Provider] - Please follow up with your Primary Care Physician in: in 1- 2 weeks Please Follow Up With: Boone Ch MD When: within 2 weeks When: Psychologist as scheduled Proposed Discharge Date: 03/12/18 03/12/18 1130 <Electronically signed by Maricarmen Nguyen MD> Date Maricarmen Nguyen MD CC: Patrick Willson MD; Sangeetha Irvin DO BEDSIDE GLUCOSE Collected: 03/12/2018 Status: F Source: [place] 11:21 AM [facility] REPOSITORY TYPE CODE TESTS RESULT OUT OF REFERENCE UNITS RANGE LAB L501.080 70-110 mg/dL High BEDSIDE GLU 144 Result Comment: MANAGEMENT OF PATIENT CARE PER NURSING PROTOCOL Performed By: #### L501.080 #### [facility] Point [place] [address] BEDSIDE GLUCOSE Collected: 03/12/2018 Status: F Source: [place] 6:40 AM [facility] REPOSITORY TYPE CODE TESTS RESULT OUT OF RANGE REFERENCE UNITS LAB L501.080 70-110 mg/dL Normal BEDSIDE GLU 90 Result Comment: MANAGEMENT OF PATIENT CARE PER NURSING PROTOCOL Performed By: #### L501.080 #### [facility] Point of Care [address] [place] [address] BASIC METABOLIC Collected: 03/12/2018 Status: F Source: [place] PROFILE (BMP) 4:40 AM [facility] REPOSITORY TYPE CODE TESTS RESULT OUT OF RANGE REFERENCE UNITS LAB L501.0100 74-106 mg/dL Normal GLU 105 Result Comment: Fasting Glucose result from 100 to 125 mg/dL suggests IMPAIRED HOMEOSTASIS per A.D.A. criteria. Please note revised GLUCOSE reference range effective 2017. LAB L501.1000 7-18 mg/dL High BUN 28 LAB L501.1100 0.55-1.02 mg/dL High CREAT,SERUM 1.08 Result Comment: The validity of the calculated GFR AND GFRAA in patients over 70 years has not been determined. Clinical correlation is essential. LAB L501.1110 >60 mL/min Low EST GFR 56 Result Comment: Non- GFR Calc LAB L501.1115 >60 mL/min Normal EST GFR - AA 68 Result Comment: GFR Calc LAB L501.1255 ml/min Normal Estimated CRCL 53.58 LAB L501.1300 10-20 RATIO High BUN/CRE 25.9 LAB L501.2200 8.5-10 mg/dL Normal .1 CA 8.6 LAB L501.5300 136-14 mmol/L Normal 5 NA 138 LAB L501.5600 3.5-5. mmol/L Normal 1 K 4.4 LAB L501.5900 98-107 mmol/L Normal CL 103 LAB L501.6100 21.0-3 mmol/L Normal 2.0 CO2 26.0 LAB L501.6200 5-15 Normal GAP 9 Performed By: #### L500.2500 #### [facility] [address] [place], [address] BEDSIDE GLUCOSE Collected: 03/11/2018 Status: F Source: [place] 9:31 PM [facility] REPOSITORY TYPE CODE TESTS RESULT OUT OF REFERENCE UNITS RANGE LAB L501.080 70-110 mg/dL High BEDSIDE GLU 139 Result Comment: MANAGEMENT OF PATIENT CARE PER NURSING PROTOCOL Performed By: #### L501.080 #### [facility] Point of Care [address] [place] [address] BEDSIDE GLUCOSE Collected: 03/11/2018 Status: F Source: [place] 4:41 PM [facility] REPOSITORY TYPE CODE TESTS RESULT OUT OF REFERENCE UNITS RANGE LAB L501.080 70-110 mg/dL High BEDSIDE GLU 142 Result Comment: MANAGEMENT OF PATIENT CARE PER NURSING PROTOCOL Performed By: #### L501.080 #### [facility] Point of Care [address] [place] [address] BASIC METABOLIC Collected: 03/11/2018 Status: F Source: [place] PROFILE (BMP) 2:40 PM [facility] REPOSITORY TYPE CODE TESTS RESULT OUT OF RANGE REFERENCE UNITS LAB L501.0100 74-106 mg/dL High GLU 142 Result Comment: Fasting Glucose result greater than or equal to 126 mg/dL suggests DIABETES MELLITUS per A.D.A. criteria. Please note revised GLUCOSE reference range effective 2017. LAB L501.1000 7-18 mg/dL High BUN 29 LAB L501.1100 0.55-1.02 mg/dL High CREAT,SERUM 1.12 Result Comment: The validity of the calculated GFR AND GFRAA in patients over 70 years has not been determined. Clinical correlation is essential. LAB L501.1110 >60 mL/min Low EST GFR 54 Result Comment: Non- GFR Calc LAB L501.1115 >60 mL/min Normal EST GFR - AA 65 Result Comment: GFR Calc LAB L501.1255 ml/min Normal Estimated CRCL 51.67 LAB L501.1300 10-20 RATIO High BUN/CRE 25.9 LAB L501.2200 8.5-10 mg/dL Normal .1 CA 8.6 LAB L501.5300 136-14 mmol/L Normal 5 NA 137 LAB L501.5600 3.5-5. mmol/L Normal 1 K 4.5 LAB L501.5900 98-107 mmol/L Normal CL 102 LAB L501.6100 21.0-3 mmol/L Normal 2.0 CO2 24.0 LAB L501.6200 5-15 Normal GAP 11 Performed By: #### L500.2500 #### [facility] [address] [place], [address] BEDSIDE GLUCOSE Collected: 03/11/2018 Status: F Source: [place] 12:06 PM [facility] REPOSITORY TYPE CODE TESTS RESULT OUT OF RANGE REFERENCE UNITS LAB L501.080 70-110 mg/dL Normal BEDSIDE GLU 94 Result Comment: MANAGEMENT OF PATIENT CARE PER NURSING PROTOCOL Performed By: #### L501.080 #### [facility] Point of Care [address] [place] [address] BEDSIDE GLUCOSE Collected: 03/11/2018 Status: F Source: [place] 6:44 AM [facility] REPOSITORY TYPE CODE TESTS RESULT OUT OF REFERENCE UNITS RANGE LAB L501.080 70-110 mg/dL High BEDSIDE GLU 122 Result Comment: MANAGEMENT OF PATIENT CARE PER NURSING PROTOCOL Performed By: #### L501.080 #### [facility] Point of Care [address] [place] [address] BEDSIDE GLUCOSE Collected: 03/10/2018 Status: F Source: [place] 9:15 PM [facility] REPOSITORY TYPE CODE TESTS RESULT OUT OF REFERENCE UNITS RANGE LAB L501.080 70-110 mg/dL High BEDSIDE GLU 151 Result Comment: MANAGEMENT OF PATIENT CARE PER NURSING PROTOCOL Performed By: #### L501.080 #### [facility] Point of Care [address] [place] [address] BEDSIDE GLUCOSE Collected: 03/10/2018 Status: F Source: [place] 4:37 PM [facility] REPOSITORY TYPE CODE TESTS RESULT OUT OF REFERENCE UNITS RANGE LAB L501.080 70-110 mg/dL High BEDSIDE GLU 143 Result Comment: MANAGEMENT OF PATIENT CARE PER NURSING PROTOCOL Performed By: #### L501.080 #### [facility] Point of Care [address] [place] [address] EMERGENCY DEPARTMENT Observed: 03/10/2018 Status: F Source: [place] SUMMARY 4:10 PM [facility] REPOSITORY [facility] Medical Records Department [address] [place] [address] Emergency Department Summary 03/08/18 0119 MR#: [id number] Acct: [id number] Name: IFEOMA ASHRAF Rep #: [id number] : 1965 52 From: Alejandro Lopez DO PCP: Sangeetha Irvin DO Status: ADM IN - ER Visit Summary Date of Service: 03/08/18 Chief Complaint: Unresponsive History of Present Illness: The patient is a 52 F brought in by EMS following being found unresponsive in the bathroom. Patient was noted to be hypoglycemic and received oral glucose in route to the hospital. Friends tell me that they were sitting with her conversing and she was telling them she was having epigastric pain. She has been treated with Carafate recently. Friends state that she stated she needed to use the bathroom went to the bathroom. They found her unresponsive there. He states she has been under a lot of stress lately having lost a friend recently. Patient denies any suicidal or homicidal ideation she denies taking any extra medications. She has a history of non-Hodgkin's lymphoma, diabetes mellitus (on metformin) anemia. She sees Dr. Ch for cardiology. She has a nonischemic cardiomyopathy and an ICD in place for persistent ventricular dysfunction. Reported ejection fraction 25%. Dr. Irvin is her primary care physician. Patient is on metformin and denies any change in the dosages. Physical Examination: 121/95 temperature 99.2 heart rate of 85 respirations are 33 pulse ox is 100% on room air Gen: Well-nourished well-developed obese Head: Normocephalic atraumatic Eyes: Perrl EOMI ENT: TMs clear no rhinorrhea moist mucous membranes Neck: Supple no lymphadenopathy no JVD nontender CVS: Regular rate rhythm no murmurs normal S1-S2 Respiratory: No distress clear to auscultation bilaterally chest nontender Abdomen: Soft nontender nondistended normal bowel sounds no masses Back: Nontender Extremity: Nontender no edema Skin: Patient is pale and diaphoretic no rash Neuro: Patient is lethargic but will open her eyes to voice and will converse in short sentences. Psych: She denies suicidal or homicidal ideas fine. Test Results: White count 5.5. Hemoglobin 10.8. Platelets of 170. Sodium 129 potassium 7.6 (this was repeated later in her ED course and was 6.2) BUN of 30 creatinine 1.9. LFTs total bili 2.4 alk phos 94 ALT of 120 AST 149 lipase 89 INR 2.4 PTT 33.7 Troponin 0 0.081 Lactic acid 12.4 ketones negative Magnesium 2 Digoxin 0.32 Alcohol level negative Emergency Department Course and Treatment: She received an amp of D50 unfortunately the staff blew the original IV. The second half and another full amp was given through a second IV. Patient became more awake and more conversant. She however remained tachypneic. EKG demonstrated a wide QRS rhythm. And 20 minutes later the patient's QRS became significantly more widened. While we awaited blood work the patient received albuterol aerosols. ABG during this time revealed a pH of 7.14 with PCO2 of 18 PO2 of 149 bicarbonate of 6.2. Patient received 2 g of bicarb as well as IV fluids. The patient's EKG improved and eventually returned to a sinus rhythm with a first-degree AV block. But still with slightly widened QRS complexes. The patient's sole remaining IV was lost and a right internal jugular central line was placed using the modified Seldinger technique under ultrasound guidance. This was obtained on the first attempt without any complications. Patient tolerated the procedure well. Chest x-ray showed appropriate placement. Patient's blood pressure has declined but her means have been greater than 66. Repeat ABG shows a pH of 7.197. CO2 24.4 PO2 of 137 bicarbonate 9.5 she was placed on a bicarbonate drip as the QRS complexes continue to try to widen out. She continues to mentate appropriately. Plan will be admission into the ICU. Impression: 1. Diabetic hypoglycemia 2. High anion gap metabolic acidosis 3. Severe hyperkalemia secondary to metabolic acidosis 4. Acute kidney injury 5. Central line placement by emergency physician 6. Critical care time 35 minutes This note was generated with [employer] dictation software. It may contain incorrect words, spelling, and punctuation that were not noted in review of the chart prior to signing ED Disposition - Plan for ED Patient: Disposition: Acute Care Hospital [facility] Chief Complaint: General Illness What to do if you have Problems For any increased pain, shortness of breath, bleeding, nausea or vomiting, chest pain, or any unexpected problems, contact your Primary Care Provider. Call [facility] ([phone]) or report to the closest Emergency Room. Call 911 if necessary. 03/10/18 1610 <Electronically signed by Alejandro Lopez DO> Date Alejandro Lopez DO Cosigner Signature (If Indicated): Date CC: Sangeetha Irvin DO CONSULTATION Observed: 03/10/2018 Status: F Source: [place] 1:05 PM [facility] REPOSITORY [facility] Medical Records Department [address] [place] [address] Consultation 03/09/18 1820 MR#: [id number] Acct: [id number] Name: IFEOMA ASHRAF Rep #: [id number] : 1965 53 From: Boone Ch MD PCP: Sangeetha Irvin DO Status: ADM IN Y Location: ICU ICU-1 Reason for Consult Date of Consultation: 03/09/18 Reason for Consultation: Evaluation of cardiac status History of Present Illness: The patient is a 53 year old F with past medical history listed below, who was brought to [facility] on 03/08/2018 after being found unresponsive in the bathroom. Patient reportedly was noted to be hypoglycemic by EMS with a blood sugar of 30 and was given oral glucose. Patient had been complaining of epigastric pain and was recently treated with Carafate. Patient reportedly had a syncopal event while trying to go to the bathroom. Patient reportedly has been under a lot of stress lately, but there is no suicidal or homicidal ideation. Patient does have a history of non-Hodgkin's lymphoma, diabetes, nonischemic cardiomyopathy (EF 25%) and anemia. On presentation, patient was normotensive and 100% on room air. Patient was noted to be significantly tachypneic at 33 breaths per minute. Laboratory workup showed a significant lactic acidosis of 12.4 without ketones. Digoxin level was noted at 0.32. Potassium was elevated at 7.6 and creatinine at 1.9. Patient was placed on a bicarb drip and then transferred to the intensive care unit. While in the intensive care unit the patient required significant pressor support. As part of her workup an echocardiogram was performed which demonstrated globally reduced left ventricular ejection fraction estimated to be between 10 and 15%. She also had mildly elevated troponin and cardiology was called to render an opinion. She had previously denied any chest arm or neck discomfort suggest angina. She does have a previous history of nonischemic cardiomyopathy status post ICD implantation. The latter was revised approximately a month ago. Past Medical History Allergies/Adverse Reactions: Allergies amitriptyline Adverse Reaction (Severe, Verified 11/28/17 11:08) Nightmares naproxen sodium [From Aleve] Adverse Reaction (Severe, Verified 11/28/17 11:08) Swelling Nasal swelling - causing difficulty breathing Sulfa (Sulfonamide Antibiotics) Adverse Reaction (Intermediate, Verified 11/28/17 11:08) Rash Latex, Natural Rubber Adverse Reaction (Mild, Verified 11/28/17 11:08) Other irritates/smith the skin Home Medications: Ambulatory Orders Medication Instructions Recorded Amitriptyline HCl 1 - 2 mg PO QHS PRN 03/07/18 Carvedilol [Coreg] 0.5 tab PO BID 03/07/18 Past Medical History (Chronic Problems): Chronic Problems (Last Reviewed 03/08/18 @ 02:42 by Monique Tamez DO) Type 2 diabetes mellitus without complications (Chronic) S/P implantation of automatic cardioverter/defibrillator (AICD) (Chronic) 10/06/2009 @ [facility] Cardiomyopathy in other diseases classified elsewhere (Chronic) Abnormal electrocardiogram (Chronic) Shortness of breath (Chronic) Diffuse large B-cell lymphoma (Chronic) Surgical History: - - cholecystecomy - *Family History Maternal Family History: Family History (Last Reviewed 03/08/18 @ 02:42 by Monique Tamez DO) Father CVA (cerebral vascular accident) Diabetes Hypertension Mother Hypertension Brother Diabetes Hypertension History Items: Unknown Smoking Status: Never smoker Tobacco Use: Non-smoker Alcohol: None Drugs: None Review of Systems - Review of Systems General: Denies: Fever, Night Sweats, Fatigue Cardiovascular: Denies: Chest Discomfort, Shortness of Breath, Orthopnea, PND, Peripheral Edema, Palpitations, Lightheadedness, Dizziness, Near Syncope, Syncope Respiratory: Denies: Cough, Sputum Production, Hemoptysis Gastrointestinal: Denies: Hematemesis, Hematochezia, Melena Genitourinary: Denies: Dysuria, Hematuria Skin: Denies: Rash Subjectve: Pleasant lady at this time sitting in bed eating her birthday cake Objective: Vital Signs Temp Pulse Resp BP Pulse Ox 97.6 F L 104 H 19 H 87/72 L 95 03/09/18 18:00 03/09/18 18:00 03/09/18 18:00 03/09/18 18:00 03/09/18 18:00 Oxygen Flow Rate (L/min) 2 Oxygen Delivery Method Room Air Weight: 230 lb 2.601 oz Body Mass Index (BMI) 37.4 Intake and Output for Last 24 Hours Intake Total 3218.2 / 3218.2 1544 / 1544 Output Total 430 / 430 300 / 300 Balance 2788.2 / 2788.2 1244 / 1244 General: Awake, Alert, Oriented x 3 HEENT: PERRL, EOMI, Sclera Non Icteric Neck: Supple, Good ROM, No Lymph Node Enlargement Lungs: Clear to auscultation Cardiovascular: Regular Rhythm, Normal S1, Normal S2, No Murmurs, No Rubs, No Gallops Vascular: No Carotid Bruits, Normal Femoral Pulses, Normal Radial Pulses, Normal Dorsalis Pedal Pulse, Normal Posterior Tibial Pulses Abdomen: Bowel Sounds Present, Soft, Non Tender, No HSM, No Organomegaly Extremities: No Cyanosis, No Clubbing, No edema Neurological: No Focal Motor or Sensory Deficit 03/09/18 04:05: WBC 8.3, RBC 3.17 L, Hgb 9.9 L, Hct 31.8 L, MCV 100.3 H, MCH 31.2, MCHC 31.1 L, RDW 19.2 H, RDW Differential 67.4 H, Plt Count 144 L, MPV 10.8, Immature Gran % (Auto) 0.200, Neut % (Auto) 81.8 H, Lymph % (Auto) 9.7 L, Wolfe % (Auto) 8.3, Eos % (Auto) 0.0, Baso % (Auto) 0.0, Absolute Neuts (auto) 6.8, Total Counted Not Reportable 03/09/18 04:05: Sodium 139, Potassium 4.6, Chloride 102, Carbon Dioxide 27.0, Anion Gap 10, BUN 31 H, Creatinine 1.25 H, Est GFR (MDRD) Af Amer 57 L, Est GFR (MDRD) Non-Af 48 L, BUN/Creatinine Ratio 24.8 H, Glucose 111 H, Calcium 8.4 L 03/09/18 08:25: Lactic Acid 1.7 03/09/18 08:25: Hemoglobin A1c 5.7 03/09/18 08:25: Iron 24 L, TIBC 380, Iron Saturation 6.3 L, Ferritin 97 Rhythm: EKG: Normal sinus rhythm with no acute changes ECHO: Globally reduced left ventricular systolic function estimated at 10-15% Assessment/Plan 1. Severe left ventricular systolic dysfunction with cardiogenic shock. Patient presented with severe acidosis the etiology of which was not entirely clear but likely secondary to medication such as metformin. I suspect her severe acidosis significant left ventricular systolic dysfunction and subsequent shock. She has been treated with intravenous pressor agents with significant improvement and at this time my recommendation will be to continue to wean her off and see how she does. At the appropriate time her beta-stephanie can be resumed at a low dose. Cautious diuresis would also be instituted. 2. Status post ICD implantation She does have a history of ICD implantation had defibrillator was checked today and it appears to be functioning well with no VT or VF episodes. We will continue to follow her in our pacemaker clinic. 3. DVT of left upper extremity. The ICD was changed out there was no manipulation of the leads and therefore I do not think that this is a potential etiology of the upper extremity DVT. I would however suggest that we anticoagulate her with Eliquis 2.5 mg twice a day. I discussed the above with box cutter who is in agreement. 4. Abnormal cardiac enzymes. She did manifest significantly abnormal cardiac enzymes in the non-ST elevation myocardial infarction range. She was on high-dose pressor agents and with his severe acidosis I suspect that this was likely secondary to demand ischemia. She has previously been documented to have normal coronary arteries and with a global nature of her left ventricular systolic dysfunction I suspect the above is not secondary to an epicardial narrowing of her coronary anatomy. I would recommend we continue watchful waiting and risk factor modification. I have discussed the above with the patient, the hospitalist box cutter and the family. All in agreement. 03/10/18 1305 <Electronically signed by Boone Ch MD> Date Boone Ch MD Cosigner Signature (if applicable): Date CC: Patrick Willson MD; Sangeetha Irvin DO Signed BEDSIDE GLUCOSE Collected: 03/10/2018 Status: F Source: [place] 11:19 AM [facility] REPOSITORY TYPE CODE TESTS RESULT OUT OF RANGE REFERENCE UNITS LAB L501.080 70-110 mg/dL Normal BEDSIDE GLU 99 Result Comment: MANAGEMENT OF PATIENT CARE PER NURSING PROTOCOL Performed By: #### L501.080 #### [facility] Point of Care [address] [facility] [place], [place] [address] BEDSIDE GLUCOSE Collected: 03/10/2018 Status: F Source: [place] 6:24 AM [facility] REPOSITORY TYPE CODE TESTS RESULT OUT OF RANGE REFERENCE UNITS LAB L501.080 70-110 mg/dL Normal BEDSIDE GLU 98 Result Comment: MANAGEMENT OF PATIENT CARE PER NURSING PROTOCOL Performed By: #### L501.080 #### [facility] Point of Care [address] [place] [address] CBC W/DIFF, AUTOMATED Collected: 03/10/2018 Status: F Source: [place] 4:12 AM [facility] REPOSITORY TYPE CODE TESTS RESULT OUT OF RANGE REFERENCE UNITS LAB L100.1000 4.4-11.0 K/mm3 Normal WBC 5.6 LAB L100.1200 4.2-5.4 M/mm3 Low RBC 3.02 LAB L100.1300 12.0-15.0 g/dl Low HGB 9.6 LAB L100.1400 37-47 % Low HCT 30.6 LAB L100.1500 81-99 fL High MCV 101.3 LAB L100.1600 27.0-32.0 pg Normal MCH 31.8 LAB L100.1700 32-36 g/gl Low MCHC 31.4 LAB L100.1810 11.6-14.6 % High RDW CV 19.1 LAB L100.1820 35.1-43.9 fl High RDW SD 68.7 LAB L100.1900 150-450 K/mm3 Low PLT 130 LAB L100.2000 6.2-12.0 fl Normal MPV 10.5 LAB L100.2100 47-70 % Normal NEUT% 69.4 LAB L100.2200 19-41 % Normal LY% 19.0 LAB L100.2300 0-10 % Normal MONO% 9.1 LAB L100.2400 0-5 % Normal EO% 2.1 LAB L100.2500 0-1 % Normal BASO% 0.2 LAB L100.2550 0.0-0.9 % Normal IM GRAN % 0.200 Result Comment: IG% - Immature Granulocytes (promyelocytes, myelocytes and metamyelocytes) > 1% indicates that a LEFT SHIFT is Present. LAB L100.2620 2.0-7.7 X10 3/uL Absolute Neut Normal 3.9 LAB L100.2720 0.83-4.51 X10 3/ul Absolute Lymph Normal 1.07 LAB L100.4500 SMEAR COMMENT Normal SCANNED LAB L100.7600 HYPOCHROMASIA Normal 2+ LAB L100.7800 MACROCYTE Normal 3+ LAB L100.8100 CRENATED RBC Normal RARE LAB L100.8200 OVALOCYTE Normal 1+ Performed By: #### L100.0100 #### [facility] [address] [place], [place], [address] BASIC METABOLIC Collected: 03/10/2018 Status: F Source: [place] PROFILE ([facility]) 4:12 AM [facility] REPOSITORY TYPE CODE TESTS RESULT OUT OF RANGE REFERENCE UNITS LAB L501.0100 74-106 mg/dL High GLU 113 Result Comment: Fasting Glucose result from 100 to 125 mg/dL suggests IMPAIRED HOMEOSTASIS per A.D.A. criteria. Please note revised GLUCOSE reference range effective 2017. LAB L501.1000 7-18 mg/dL High BUN 29 LAB L501.1100 0.55-1.02 mg/dL High CREAT,SERUM 1.05 Result Comment: The validity of the calculated GFR AND GFRAA in patients over 70 years has not been determined. Clinical correlation is essential. LAB L501.1110 >60 mL/min Low EST GFR 58 Result Comment: Non- GFR Calc LAB L501.1115 >60 mL/min Normal EST GFR - AA 70 Result Comment: GFR Calc LAB L501.1255 ml/min Normal Estimated CRCL 55.12 LAB L501.1300 10-20 RATIO High BUN/CRE 27.6 LAB L501.2200 8.5-10 mg/dL Low .1 CA 8.4 LAB L501.5300 136-14 mmol/L Normal 5 NA 139 LAB L501.5600 3.5-5. mmol/L Normal 1 K 4.1 LAB L501.5900 98-107 mmol/L Normal CL 102 LAB L501.6100 21.0-3 mmol/L Normal 2.0 CO2 28.0 LAB L501.6200 5-15 Normal GAP 9 Performed By: #### L500.2500 #### [facility] [address] [facility] [address] BEDSIDE GLUCOSE Collected: 2018 Status: F Source: [place] 9:55 PM [facility] REPOSITORY TYPE CODE TESTS RESULT OUT OF REFERENCE UNITS RANGE LAB L501.080 70-110 mg/dL High BEDSIDE GLU 150 Result Comment: MANAGEMENT OF PATIENT CARE PER NURSING PROTOCOL Performed By: #### L501.080 #### [facility] Point of Care [address] [place] [address] BEDSIDE GLUCOSE Collected: 2018 Status: F Source: [place] 3:59 PM [facility] REPOSITORY TYPE CODE TESTS RESULT OUT OF REFERENCE UNITS RANGE LAB L501.080 70-110 mg/dL High BEDSIDE GLU 135 Result Comment: MANAGEMENT OF PATIENT CARE PER NURSING PROTOCOL Performed By: #### L501.080 #### [facility] Point of Care [address] [place] [address] VENOUS DUPLEX UPPER Observed: 2018 Status: F Source: [place] EXTREMITY 3:10 PM [facility] REPOSITORY [facility] Cardiovascular Services [address] [place] [address] Venous Duplex US, Unilateral 03/09/18 1021 MR#: [id number] Acct: [id number] Name: IFEOMA ASHRAF Rep #: [id number] : 1965 53 From: Juanjo Russo MD Attending Dr: Maricarmen Nguyen MD Status: ADM IN Ordering Dr: Patrick Willson MD Date: 03/09/18 Location: ICU Sex: F C Admitted: 03/08/18 Version 2 Left Proximal Left jugular vein is spontaneous, widely patent, phasic, with no intraluminal echogenicity noted. Left subclavian vein is spontaneous, widely patent, phasic, with no intraluminal echogenicity noted. Left Arm Axillary V is dilated and noncompressible with decreased flow. Brachial V is dilated and noncompressible with no flow. Cephalic V is dilated and noncompressible. Basilic V is dilated and noncompressible. Left Lower Arm Left radial vein is compressible. Left ulnar vein is compressible. Prelim to the pt's RN. < Interpretation Summary Acute deep vein thrombosis is noted in the left axillary vein. Acute deep vein thrombosis is noted in the left brachial vein. The remainder of the left upper extremity deep venous system is patent. Acute superficial thrombophlebitis is noted in the left basilic and cephalic veins. Ordering Physician: Patrick Willson Referring Physician: Sangeetha Irvin Performed By: Orlando Galvan, RVT Version 2 < Interpretation Summary Ordering Physician: Patrick Willson Referring Physician: Sangeetha Irvin Performed By: Orlando Galvan, RVT 03/09/18 1509 Date Juanjo Russo MD CC: Maricarmen Nguyen MD; Patrick Willson MD; Sangeetha Irvin DO Date Dictated: 03/09/18 1021 Date Transcribed: 03/09/18 1449 Supervisor Laundry: Signed BEDSIDE GLUCOSE Collected: 2018 Status: F Source: [place] 11:28 AM [facility] REPOSITORY TYPE CODE TESTS RESULT OUT OF REFERENCE UNITS RANGE LAB L501.080 70-110 mg/dL High BEDSIDE GLU 137 Result Comment: MANAGEMENT OF PATIENT CARE PER NURSING PROTOCOL Performed By: #### L501.080 #### [facility] Point of Care [address] [place] [address]. [place], [place] [address] HEMOGLOBIN A1C Collected: 2018 Status: F Source: [place] 8:25 AM [facility] REPOSITORY TYPE CODE TESTS RESULT OUT OF RANGE REFERENCE UNITS LAB L501.9985 4.2-6.3 % Normal HGB A1C 5.7 Performed By: #### L501.9985 #### [facility] [address] [place], [address] LACTIC ACID Collected: 2018 Status: F Source: [place] 8:25 AM [facility] REPOSITORY Order Comment: Yes/No query for Sepsis Lactate Rule Y TYPE CODE TESTS RESULT OUT OF RANGE REFERENCE UNITS LAB L503.6005 0.4-2.0 mmol/L Normal LACTIC ACID 1.7 Performed By: #### L503.6005 #### [facility] [address] [facility] [place], [address] IRON+IRON BINDING Collected: 2018 Status: F Source: [place] CAPACITY 8:25 AM [facility] REPOSITORY Order Comment: Comments: as add on test Comments: as add on test TYPE CODE TESTS RESULT OUT OF RANGE REFERENCE UNITS LAB L503.6075 250-450 ug/dL TIBC Normal 380 LAB L503.6150 50-170 ug/dL Low IRON 24 LAB L503.6250 15.0-55.0 % Low IRON SATURATION 6.3 Performed By: #### L503.6030, L503.6550 #### [facility] [address] [place], [address] FERRITIN Collected: 2018 Status: F Source: [place] 8:25 AM [facility] REPOSITORY Order Comment: Comments: as add on test Comments: as add on test TYPE CODE TESTS RESULT OUT OF RANGE REFERENCE UNITS LAB L503.6550 8-252 ng/mL Normal FERRITIN 97 Performed By: #### L503.6030, L503.6550 #### [facility] [address] [facility] [place], [address] BEDSIDE GLUCOSE Collected: 2018 Status: F Source: [place] 6:26 AM [facility] REPOSITORY TYPE CODE TESTS RESULT OUT OF REFERENCE UNITS RANGE LAB L501.080 70-110 mg/dL High BEDSIDE GLU 114 Result Comment: MANAGEMENT OF PATIENT CARE PER NURSING PROTOCOL Performed By: #### L501.080 #### [facility] Point of Care [address] [place] [address] CONSULTATION Observed: 2018 Status: F Source: [place] 5:32 AM [facility] REPOSITORY [facility] Medical Records Department [address] [facility] [place] [address] Consultation 03/08/18 0830 MR#: [id number] Acct: [id number] Name: IFEOMA ASHRAF Rep #: [id number] : 1965 52 From: Patrick Willson MD PCP: Sangeetha Irvin DO Status: ADM IN Y Location: ICU ICU07-1 Problem List (1) History of non-Hodgkin's lymphoma Status: Resolved (2) Anemia Status: Acute Qualifiers: Anemia type: unspecified type Qualified Code(s): D64.9 - Anemia, unspecified (3) Metabolic acidosis Status: Acute (4) Hyperkalemia Status: Acute (5) Syncope Status: Acute (6) FAN (acute kidney injury) Status: Acute (7) Type 2 diabetes mellitus without complications Status: Chronic (8) S/P implantation of automatic cardioverter/defibrillator (AICD) Status: Chronic Comment: 10/06/2009 @ [facility] (9) Cardiomyopathy in other diseases classified elsewhere Status: Chronic (10) Diffuse large B-cell lymphoma Status: Chronic Qualifiers: Lymphoma site: extranodal excluding spleen and other solid organs Qualified Code(s): C83.39 - Diffuse large B-cell lymphoma, extranodal and solid organ sites Reason for Consult Date of Consultation: 03/08/18 Reason for Consultation: Metabolic acidosis History of Present Illness: The patient is a 52 year old F, with past medical history listed below, who was brought to [facility] on 03/08/2018 after being found unresponsive in the bathroom. Patient reportedly was noted to be hypoglycemic by EMS with a blood sugar of 30 and was given oral glucose. Patient had been complaining of epigastric pain and was recently treated with Carafate. Patient reportedly had a syncopal event while trying to go to the bathroom. Patient reportedly has been under a lot of stress lately, but there is no suicidal or homicidal ideation. Patient does have a history of non-Hodgkin's lymphoma, diabetes, nonischemic cardiomyopathy (EF 25%) and anemia. On presentation, patient was normotensive and 100% on room air. Patient was noted to be significantly tachypneic at 33 breaths per minute. Laboratory workup showed a significant lactic acidosis of 12.4 without ketones. Digoxin level was noted at 0.32. Potassium was elevated at 7.6 and creatinine at 1.9. Patient was placed on a bicarb drip and then transferred to the intensive care unit. Overnight, patient had multiple ABG showing consistently improving acidosis. Patient is also had improving lactates. This morning, patient reports significant improvement in dyspnea. However, patient is continuing to report nausea and epigastric discomfort. Patient does report that she has not been eating lunch, but does believe she has been drinking enough water. Patient states that she has been severely depressed secondary to a friend's recent passing on Tuesday. Review of systems otherwise negative 10 systems. Past Medical History Past Medical History (Chronic Problems): Chronic Problems (Last Reviewed 03/08/18 @ 02:42 by Monique Tamez DO) Type 2 diabetes mellitus without complications (Chronic) S/P implantation of automatic cardioverter/defibrillator (AICD) (Chronic) 10/06/2009 @ [facility] Cardiomyopathy in other diseases classified elsewhere (Chronic) Abnormal electrocardiogram (Chronic) Shortness of breath (Chronic) Diffuse large B-cell lymphoma (Chronic) Medical History: Medical History (Last Reviewed 03/08/18 @ 02:42 by Monique Tamez DO) Type 2 diabetes mellitus without complications (Chronic) E11.9 Cardiomyopathy in other diseases classified elsewhere (Chronic) I43 Abnormal electrocardiogram (Chronic) R94.31 Shortness of breath (Chronic) R06.02 Diffuse large B-cell lymphoma (Chronic) C83.30 Bilateral caract surgery Left - 09/28/17; Right - 10/20/17 Decomp laminectomy to remove T6-7 mass Depression F32.9 Fibromyalgia M79.7 Heel spur surgery History of hysteroscopy Z98.890 Left thyroid aspiration 03/17/17 - benign Replacement of generator for debrillator 11/10/17 Sleep apnea G47.30 Thyroid nodule E04.1 Allergies amitriptyline Adverse Reaction (Severe, Verified 11/28/17 11:08) Nightmares naproxen sodium [From Aleve] Adverse Reaction (Severe, Verified 11/28/17 11:08) Swelling Nasal swelling - causing difficulty breathing Sulfa (Sulfonamide Antibiotics) Adverse Reaction (Intermediate, Verified 11/28/17 11:08) Rash Latex, Natural Rubber Adverse Reaction (Mild, Verified 11/28/17 11:08) Other irritates/smith the skin Home Medications: Ambulatory Orders Medication Instructions Recorded Amitriptyline HCl 1 - 2 mg PO QHS PRN 03/07/18 Carvedilol [Coreg] 0.5 tab PO BID 03/07/18 Surgical History: Surgical History (Last Reviewed 03/08/18 @ 02:42 by Monique Tamez DO) S/P implantation of automatic cardioverter/defibrillator (AICD) (Chronic) Z95.810 10/06/2009 @ [facility] History of cholecystectomy Z98.890, Z90.49 History of stem cell transplant Z94.84 Surgical History: - - cholecystecomy Smoking Status: Never smoker Tobacco Use: Non-smoker Alcohol: None Drugs: None - *Family History Maternal Family History: Family History (Last Reviewed 03/08/18 @ 02:42 by Monique Tamez DO) Father CVA (cerebral vascular accident) Diabetes Hypertension Mother Hypertension Brother Diabetes Hypertension History Items: Unknown Review of Systems Comment: See HPI Patient Problems: Active and Suspected Problems (Last Reviewed 03/08/18 @ 02:42 by Monique Tamez DO) Metabolic acidosis (Acute) Hyperkalemia (Acute) Syncope (Acute) FAN (acute kidney injury) (Acute) Objective: All imaging was personally reviewed. Chest x-ray shows central line in appropriate position. KUB shows a nonspecific bowel gas pattern. CT of the head was unremarkable. - Physical Exam General: Alert, Oriented x3, Cooperative, - - Appears uncomfortable, but no accessory muscles are noted. Obese. HEENT: Atraumatic, PERRLA, EOMI, Normocephalic, - - Slightly pale conjunctivae Oral: No Gingival or Mucosal Lesions/ Ulcerations, Dry Mucosa Neck: Supple, No JVD, No Nodes, Trachea Midline, - - Somewhat limited secondary to body habitus. Central line appears clean, dry and intact. Lungs: No rhonchi, No wheeze, No rales, Diminished, - - Symmetric expansion. No dullness to percussion. Cardiovascular: Regular rate, Regular Rhythm, Normal S1, Normal S2, No murmurs, No rub noted, No Gallop Abdomen: Bowel Sounds Present, Soft, Non Tender, Non-Distended, Obese Extremities: No clubbing, No cyanosis, No edema Skin: No rashes, No breakdown Musculoskeletal: No Tenderness to Palpation of Joints or Extremities Lymphatic: No Cervical, Supraclavicular, or Inguinal Adenopathy Neurological: Cranial nerves II-XII grossly intact, Neuro grossly intact Psych/Mental Status: Appropriate, Flat Affect Vital Signs Temp Pulse Resp BP Pulse Ox 37.3 C 94 19 H 89/75 L 99 03/08/18 08:00 03/08/18 08:00 03/08/18 08:00 03/08/18 08:00 03/08/18 08:00 Oxygen Flow Rate (L/min) 2 Oxygen Delivery Method Room Air Weight: 102 kg Body Mass Index (BMI) 37.4 Intake and Output for Last 24 Hours Intake Total 565.8 / 565.8 Output Total 150 / 150 Balance 415.8 / 415.8 Laboratory Tests Past 24 Hrs WBC 7.8 RBC 3.41 L POC Glucose POC Glucose 211 H Clinical Impression(s) from Imaging Studies Chest X-Ray 03/07/18 22:32 IMPRESSION: Moderate cardiomegaly with no evidence of pulmonary vascular congestion. Electronically Signed: Lamberto Arreola DO at 23:00 EDT , Service support , Chest X-Ray 03/07/18 23:47 IMPRESSION: Right internal jugular central line with the tip at the junction of superior vena cava and right atrium, in its expected location. No pneumothorax. Stable cardiomegaly. Electronically Signed: Jin Rolon MD at 0:12 EDT , Service support , Brain CT 03/08/18 00:27 IMPRESSION: Normal unenhanced CT scan of the brain. Electronically Signed: Jin Rolon MD at 1:58 EDT , Service support , KUB X-Ray 03/08/18 02:59 IMPRESSION: Nonspecific bowel gas pattern without evidence of obstruction. Electronically Signed: Jin Rolon MD at 4:14 EDT , Service support , Assessment/Plan Active and Suspected Problems (Last Reviewed 03/08/18 @ 02:42 by Monique Tamez DO) Metabolic acidosis (Acute) Hyperkalemia (Acute) Syncope (Acute) FAN (acute kidney injury) (Acute) RECOMMENDATIONS: 1. Avoid fluid boluses of possible 2. Use minimal supplemental oxygen 3. Repeat BMP and lactate at 11 AM 4. Recheck LFTs tomorrow 5. Hold metformin, sliding scale insulin IMPRESSIONS: 1. Acute respiratory insufficiency secondary to lactic acidosis Clinical suspicion for lactic acidosis secondary to metformin given new onset renal failure. Patient's respiratory status has greatly improved since presentation. No repeat ABG at this time. We will recheck chemistries and lactic acid at 11 AM. Wean oxygen to room air. This will allow for evaluation of the development of pulmonary edema secondary to congestive heart failure. 2. Acute on chronic kidney disease stage III Clinical suspicion for dehydration leading to elevation of creatinine decreased clearance. Will hold diuretics for now. Patient is getting a bicarbonate drip, but this can likely be discontinued following chemistries at 11 AM. Patient is nauseous. Would avoid boluses if possible as patient would be at high risk for development of pulmonary edema. Patient does not have an acute abdomen at this time. Liver function shows slight elevation of bilirubin, but pancreatic enzymes are unremarkable. 3. Chronic systolic congestive heart failure Last known ejection fraction of 25% in 2015. Patient does have hyperkalemia, likely secondary to lactic acidosis, so DIAMOND inhibitor has been held. Patient is on her carvedilol. Will need to monitor closely with fluids as patient will be at risk for the development of pulmonary edema. Continue with telemetry. Digoxin levels have been sent. Patient does have a lower systolic blood pressure, but map is acceptable at this time. Would not recommend fluid boluses. 4. Obesity/non-Hodgkin's lymphoma/fibromyalgia/sleep apnea/diabetes mellitus type 2 Complicates care, management, recovery and prognosis. Will hold on diabetic medications at this time. Sliding scale insulin if needed. Addendum 11:27 AM Patient continues to have hypotension with decreased responsiveness. Some concern for excessive fluids causing problems with congestive heart failure. Patient will be initiated on pressor therapy. Continue to monitor troponins. Obtaining lactate and chemistries now. TIME: 38 minutes critical care time spent addressing patient's acute respiratory insufficiency, acute on chronic kidney disease, hypotension/review of all data and collaboration with care team Code Visit Inpatient E AND M: [id number] Init Hosp L3 03/09/18 0532 <Electronically signed by Patrick Willson MD> Date Patrick Willson MD Cosigner Signature (if applicable): Date CC: Patrick Willson MD; Sangeetha Irvin DO Signed BASIC METABOLIC Collected: 2018 Status: F Source: [place] PROFILE (BMP) 4:05 AM [facility] REPOSITORY TYPE CODE TESTS RESULT OUT OF RANGE REFERENCE UNITS LAB L501.0100 74-106 mg/dL High GLU 111 Result Comment: Fasting Glucose result from 100 to 125 mg/dL suggests IMPAIRED HOMEOSTASIS per A.D.A. criteria. Please note revised GLUCOSE reference range effective 2017. LAB L501.1000 7-18 mg/dL High BUN 31 LAB L501.1100 0.55-1.02 mg/dL High CREAT,SERUM 1.25 Result Comment: The validity of the calculated GFR AND GFRAA in patients over 70 years has not been determined. Clinical correlation is essential. LAB L501.1110 >60 mL/min Low EST GFR 48 Result Comment: Non- GFR Calc LAB L501.1115 >60 mL/min Low EST GFR - AA 57 Result Comment: GFR Calc LAB L501.1255 ml/min Normal Estimated CRCL 46.30 LAB L501.1300 10-20 RATIO High BUN/CRE 24.8 LAB L501.2200 8.5-10 mg/dL Low .1 CA 8.4 LAB L501.5300 136-14 mmol/L Normal 5 NA 139 LAB L501.5600 3.5-5. mmol/L Normal 1 K 4.6 LAB L501.5900 98-107 mmol/L Normal CL 102 LAB L501.6100 21.0-3 mmol/L Normal 2.0 CO2 27.0 LAB L501.6200 5-15 Normal GAP 10 Performed By: #### L500.2500 #### [facility] [address] [place], [address] CBC W/DIFF, AUTOMATED Collected: 2018 Status: F Source: [place] 4:05 AM [facility] REPOSITORY TYPE CODE TESTS RESULT OUT OF RANGE REFERENCE UNITS LAB L100.1000 4.4-11.0 K/mm3 Normal WBC 8.3 LAB L100.1200 4.2-5.4 M/mm3 Low RBC 3.17 LAB L100.1300 12.0-15.0 g/dl Low HGB 9.9 LAB L100.1400 37-47 % Low HCT 31.8 LAB L100.1500 81-99 fL High MCV 100.3 LAB L100.1600 27.0-32.0 pg Normal MCH 31.2 LAB L100.1700 32-36 g/gl Low MCHC 31.1 LAB L100.1810 11.6-14.6 % High RDW CV 19.2 LAB L100.1820 35.1-43.9 fl High RDW SD 67.4 LAB L100.1900 150-450 K/mm3 Low PLT 144 LAB L100.2000 6.2-12.0 fl Normal MPV 10.8 LAB L100.2100 47-70 % High NEUT% 81.8 LAB L100.2200 19-41 % Low LY% 9.7 LAB L100.2300 0-10 % Normal MONO% 8.3 LAB L100.2400 0-5 % Normal EO% 0.0 LAB L100.2500 0-1 % Normal BASO% 0.0 LAB L100.2550 0.0-0.9 % Normal IM GRAN % 0.200 Result Comment: IG% - Immature Granulocytes (promyelocytes, myelocytes and metamyelocytes) > 1% indicates that a LEFT SHIFT is Present. LAB L100.2620 2.0-7.7 X10 3/uL Normal Absolute Neut 6.8 LAB L100.2720 0.83-4.51 X10 3/ul Low Absolute Lymph 0.81 LAB L100.4500 SMEAR Normal COMMENT SCANNED LAB L100.7800 Normal MACROCYTE 2+ LAB L100.8200 Normal OVALOCYTE 1+ Performed By: #### L100.0100 #### [facility] [address] [place], [place], [id number] BEDSIDE GLUCOSE Collected: 03/08/2018 Status: F Source: [place] 9:58 PM [facility] REPOSITORY TYPE CODE TESTS RESULT OUT OF RANGE REFERENCE UNITS LAB L501.080 70-110 mg/dL Normal BEDSIDE GLU 110 Result Comment: MANAGEMENT OF PATIENT CARE PER NURSING PROTOCOL Performed By: #### L501.080 #### [facility] Point of Care [address] [place] [address] BEDSIDE GLUCOSE Collected: 03/08/2018 Status: F Source: [place] 4:08 PM [facility] REPOSITORY TYPE CODE TESTS RESULT OUT OF REFERENCE UNITS RANGE LAB L501.080 70-110 mg/dL High BEDSIDE GLU 143 Result Comment: MANAGEMENT OF PATIENT CARE PER NURSING PROTOCOL Performed By: #### L501.080 #### [facility] Point of Care [address] [place] [address] ECHOCARDIOGRAM COMPLETE Observed: 03/08/2018 Status: F Source: [place] 12:47 PM [facility] REPOSITORY [facility] [address] [place] [address] Echo Complete 03/08/18 0819 MR#: [id number] Acct: [id number] Name: IFEOMA ASHRAF Rep #: [id number] : 1965 52 From: Boone Ch MD Attending Dr: Maricarmen Nguyen MD Status: ADM IN Ordering Dr: Maricarmen Nguyen MD Date: 03/08/18 Location: ICU Sex: F C Admitted: 03/08/18 Reason For Study: Syncope/Near Syncope Procedure This was a 2D Doppler, Color Flow transthoracic echocardiogram. Did not use Definity due to increased PAP. Exam performed portable in ICU/CCU. Left Ventricle Moderately dilated left ventricle. Severe global left ventricular systolic dysfunction. The estimated ejection fraction is 15 %. Paced septal motion. Transmitral diastolic flow velocities suggest severe (stage 3) diastolic dysfunction. There is severe global hypokinesis of the left ventricle. Right Ventricle Normal RV size. ICD or pacer leads identified within the right ventricle. Normal systolic function. Atria Normal left atrium. Normal right atrium. Mitral Valve Normal mitral valve. Moderately severe (3+) eccentric mitral valve insufficiency. Tricuspid Valve Normal tricuspid valve. Moderate (2+) tricuspid valve insufficiency. Pulmonary artery systolic pressure is 53 mmHg. Moderate pulmonary hypertension. Aortic Valve Normal aortic valve. Trisinus/trileaflet aortic valve. Pulmonic Valve Normal pulmonic valve. Mild (1+) pulmonic valve insufficiency. Great Vessels Normal aortic root. The pulmonary artery is normal size. The inferior vena cava is dilated. Pericardium/Pleural Small pericardial effusion. MMode/2D Measurements AND Calculations LVIDd: 6.2 cm IVSd: 0.89 cm Ao root diam: 2.9 cm LVIDs: 5.9 cm LVPWd: 0.91 cm RVDd: 4.6 cm FS: 4.8 % LAV(MOD-bp): 55.9 ml EDV(MOD-sp4): 162.3 ml SV(MOD-sp4): 23.4 ml LAV(MOD-bp) Indexed: 25.4 ml/m2 ESV(MOD-sp4): 138.9 ml LAV(MOD-sp2): 49.4 ml EF(MOD-sp4): 14.4 % LAV(MOD-sp4): 57.1 ml LA A4 area: 20.1 cm2 RA A4 area: 19.2 cm2 Doppler Measurements AND Calculations MV E max nadine: 112.5 cm/sec Lat Peak E' Nadine: 3.4 cm/sec Med Peak E' Nadine: 2.5 cm/sec MV A max nadine: 56.1 cm/sec E/E' lat: 32.9 E/E' med: 44.7 MV E/A: 2.0 Ao V2 max: 92.4 cm/sec LV V1 max: 78.3 cm/sec PA V2 max: 52.8 cm/sec Ao max P.4 mmHg LV V1 max P.5 mmHg Ao V2 mean: 73.8 cm/sec Ao mean P.3 mmHg Ao V2 VTI: 12.5 cm PI end-d nadine: 160.0 cm/sec TR max nadine: 323.2 cm/sec TR max P.8 mmHg Interpretation Summary Moderately dilated left ventricle. Severe global left ventricular systolic dysfunction. The estimated ejection fraction is 15 %. Paced septal motion. Transmitral diastolic flow velocities suggest severe (stage 3) diastolic dysfunction Moderately severe (3+) eccentric mitral valve insufficiency. Pulmonary artery systolic pressure is 53 mmHg. Moderate (2+) tricuspid valve insufficiency. Small pericardial effusion. Compared to prior study, changes are noted. Ordering Physician: Maricarmen Nguyen Referring Physician: Sangeetha Irvin Performed By: Monica Todd, GIL, RVT 03/08/18 1246 Date Boone Ch MD CC: Maricaremn Nguyen MD; Sangeetha Irvin DO Date Dictated: 03/08/18 0819 Date Transcribed: 03/08/18 1246 Supervisor Laundry: Signed BEDSIDE GLUCOSE Collected: 03/08/2018 Status: F Source: [place] 11:16 AM [facility] REPOSITORY TYPE CODE TESTS RESULT OUT OF REFERENCE UNITS RANGE LAB L501.080 70-110 mg/dL High BEDSIDE GLU 213 Result Comment: MANAGEMENT OF PATIENT CARE PER NURSING PROTOCOL Performed By: #### L501.080 #### [facility] Point of Care [address] [place], [place] [id number] CBC W/DIFF, AUTOMATED Collected: 03/08/2018 Status: F Source: [place] 11:15 AM [facility] REPOSITORY TYPE CODE TESTS RESULT OUT OF RANGE REFERENCE UNITS LAB L100.1000 4.4-11.0 K/mm3 Normal WBC 7.6 LAB L100.1200 4.2-5.4 M/mm3 Low RBC 3.27 LAB L100.1300 12.0-15.0 g/dl Low HGB 10.4 LAB L100.1400 37-47 % Low HCT 33.2 LAB L100.1500 81-99 fL High MCV 101.5 LAB L100.1600 27.0-32.0 pg Normal MCH 31.8 LAB L100.1700 32-36 g/gl Low MCHC 31.3 LAB L100.1810 11.6-14.6 % High RDW CV 18.9 LAB L100.1820 35.1-43.9 fl High RDW SD 67.7 LAB L100.1900 150-450 K/mm3 Normal PLT 166 LAB L100.2000 6.2-12.0 fl Normal MPV 11.3 LAB L100.2100 47-70 % High NEUT% 85.3 LAB L100.2200 19-41 % Low LY% 7.6 LAB L100.2300 0-10 % Normal MONO% 6.8 LAB L100.2400 0-5 % Normal EO% 0.0 LAB L100.2500 0-1 % Normal BASO% 0.0 LAB L100.2550 0.0-0.9 % Normal IM GRAN % 0.300 Result Comment: IG% - Immature Granulocytes (promyelocytes, myelocytes and metamyelocytes) > 1% indicates that a LEFT SHIFT is Present. LAB L100.2620 2.0-7.7 X10 3/uL Normal Absolute Neut 6.5 LAB L100.2720 0.83-4.51 X10 3/ul Low Absolute Lymph 0.58 LAB L100.5650 Normal PLT MORPH LARGE LAB L100.7300 Normal ANISO 1+ Performed By: #### L100.0100 #### [facility] [address] [place], [place], [address] BASIC METABOLIC Collected: 03/08/2018 Status: F Source: [place] PROFILE (BMP) 11:15 AM [facility] REPOSITORY TYPE CODE TESTS RESULT OUT OF RANGE REFERENCE UNITS LAB L501.0100 74-106 mg/dL High GLU 220 Result Comment: Glucose result greater than or equal to 200 mg/dL suggests DIABETES MELLITUS per A.D.A. criteria. Please note revised GLUCOSE reference range effective 2017. LAB L501.1000 7-18 mg/dL High BUN 31 LAB L501.1100 0.55-1.02 mg/dL High CREAT,SERUM 1.60 Result Comment: The validity of the calculated GFR AND GFRAA in patients over 70 years has not been determined. Clinical correlation is essential. LAB L501.1110 >60 mL/min Low EST GFR 36 Result Comment: Non- GFR Calc LAB L501.1115 >60 mL/min Low EST GFR - AA 43 Result Comment: GFR Calc LAB L501.1255 ml/min Normal Estimated CRCL 36.59 LAB L501.1300 10-20 RATIO Normal BUN/CRE 19.4 LAB L501.2200 8.5-10 mg/dL Low .1 CA 8.3 LAB L501.5300 136-14 mmol/L Normal 5 NA 139 LAB L501.5600 3.5-5. mmol/L Normal 1 K 5.1 LAB L501.5900 98-107 mmol/L Normal CL 102 LAB L501.6100 21.0-3 mmol/L Normal 2.0 CO2 24.0 LAB L501.6200 5-15 Normal GAP 13 Performed By: #### L500.2500 #### [facility] [address] [facility] [place], [address] LACTIC ACID Collected: 03/08/2018 Status: F Source: [place] 11:15 AM [facility] REPOSITORY Order Comment: Yes/No query for Sepsis Lactate Rule Y TYPE CODE TESTS RESULT OUT OF REFERENCE UNITS RANGE LAB L503.6005 0.4-2.0 mmol/L High alert LACTIC ACID 6.5 Result Comment: Critical Result(s) Called at: 12:28:17 03/08/2018 by: Milena Bear RN (ICU). Performed By: #### L503.6005 #### [facility] [address] [place], [address] TROPONIN-I Collected: 03/08/2018 Status: F Source: [place] 7:55 AM [facility] REPOSITORY Order Comment: 'TROP' Serial specimen #1, #2 or #3: 2 'TROP' Serial specimen #1, #2, #3, or #4: 2 TYPE CODE TESTS RESULT OUT OF RANGE REFERENCE UNITS LAB L501.4010 <0.045 ng/mL High alert 0.781 TROPONIN-I Result Comment: Critical Result(s) Called at: 08:53:25 03/08/2018 by: Milena Veloz TROPONIN-I EXPECTED VALUES <0.045 Negative 0.045 - 0.590 Consistent with Cardiac Damage > OR = 0.600 Critical Value Not every elevated troponin is indicative of SD. These values should be used with clinical judgement in examining the patient's clinical picture for diagnosis. To establish a diagnosis of SD versus myocardial injury, there must be a demonstrated rise and/or fall in the troponin values, in addition to ischemic symptoms, EKG changes, new regional wall motion abnormality, and/or angiographical evidence. PLEASE NOTE: REFERENCE RANGES EDITED 18 Performed By: #### L501.4010 #### [facility] [address] [place], [place], [address] DIGOXIN LEVEL Collected: 03/08/2018 Status: F Source: [place] 7:55 AM [facility] REPOSITORY Order Comment: Comments: as add on test to am lab TYPE CODE TESTS RESULT OUT OF RANGE REFERENCE UNITS LAB L501.7510 0.80-2.00 ng/mL Low DIG 0.23 Performed By: #### L501.7510 #### [facility] [address] [place], [address] BEDSIDE GLUCOSE Collected: 03/08/2018 Status: F Source: [place] 7:50 AM [facility] REPOSITORY TYPE CODE TESTS RESULT OUT OF REFERENCE UNITS RANGE LAB L501.080 70-110 mg/dL High BEDSIDE GLU 211 Result Comment: MANAGEMENT OF PATIENT CARE PER NURSING PROTOCOL Performed By: #### L501.080 #### [facility] Point of Care [address] [place] [address] VENOUS BLOOD GAS Collected: 03/08/2018 Status: F Source: [place] 4:54 AM [facility] REPOSITORY TYPE CODE TESTS RESULT OUT OF RANGE REFERENCE UNITS LAB L9000.9990 Normal BLD GAS TYPE [place] LAB L9001.1000 Normal SITE OTHER LAB L9001.1050 O2 Normal Delivery Dev Nasal Can LAB L9001.1055 /min Normal LPM 2.0 LAB L9001.1104 Normal Results To HOSP MD LAB L9001.1105 Normal Time Given 500 LAB L9002.1110 7.32-7.42 Low VBGpH - I-STAT 7.26 LAB L9002.1212 41-51 mmHg Low VBG pCO2 - 34.0 ISTA LAB L9002.1310 25-40 mmHg Normal VBG PO2 I-STAT 32 LAB L9002.2300 22-26 mmol/L Low VBG HCO3 ISTAT 15 LAB L9002.2400 -1.0-3.5 mmol/L Low VBG BE ISTAT -12 LAB L9002.2410 50-70 % Normal VBG SO2 ISTAT 53 LAB L9002.2415 23-33 mmol/L Low VBG O2 CT 16 ISTAT Performed By: #### L9000.0810 #### [facility] Point of Care [address] [place] [address] BASIC METABOLIC Collected: 03/08/2018 Status: F Source: [place] PROFILE (BMP) 4:02 AM [facility] REPOSITORY TYPE CODE TESTS RESULT OUT OF RANGE REFERENCE UNITS LAB L501.0100 74-106 mg/dL High GLU 194 Result Comment: Fasting Glucose result greater than or equal to 126 mg/dL suggests DIABETES MELLITUS per A.D.A. criteria. Please note revised GLUCOSE reference range effective 2017. LAB L501.1000 7-18 mg/dL High BUN 30 LAB L501.1100 0.55-1.02 mg/dL High CREAT,SERUM 1.66 Result Comment: The validity of the calculated GFR AND GFRAA in patients over 70 years has not been determined. Clinical correlation is essential. LAB L501.1110 >60 mL/min Low EST GFR 34 Result Comment: Non- GFR Calc LAB L501.1115 >60 mL/min Low EST GFR - AA 41 Result Comment: GFR Calc LAB L501.1300 10-20 RATIO Normal BUN/CRE 18.1 LAB L501.2200 8.5-10.1 mg/dL Low CA 8.2 LAB L501.5300 136-145 mmol/L NA Normal 139 LAB L501.5600 3.5-5.1 mmol/L High K 5.8 LAB L501.5900 98-107 mmol/L CL Normal 105 LAB L501.6100 21.0-32.0 mmol/L Low CO2 17.0 LAB L501.6200 5-15 High GAP 17 Performed By: #### L500.2500 #### [facility] [address] [place], [address] CBC-COMPLETE BLOOD CNT Collected: 03/08/2018 Status: F Source: [place] NO DIFF 4:02 AM [facility] REPOS[facility] TYPE CODE TESTS RESULT OUT OF RANGE REFERENCE UNITS LAB L100.1000 4.4-11.0 K/mm3 Normal WBC 7.8 LAB L100.1200 4.2-5.4 M/mm3 Low RBC 3.41 LAB L100.1300 12.0-15.0 g/dl Low HGB 10.8 LAB L100.1400 37-47 % Low HCT 35.1 LAB L100.1500 81-99 fL High MCV 102.9 LAB L100.1600 27.0-32.0 pg Normal MCH 31.7 LAB L100.1700 32-36 g/gl Low MCHC 30.8 LAB L100.1810 11.6-14.6 % High RDW CV 18.8 LAB L100.1820 35.1-43.9 fl High RDW SD 68.1 LAB L100.1900 150-450 K/mm3 Normal PLT 158 LAB L100.2000 6.2-12.0 fl Normal MPV 11.0 Performed By: #### L100.0500, L100.4500 #### [facility] [address] [place], [address] DIFFERENTIAL COMMENT Collected: 03/08/2018 Status: F Source: [place] 4:02 AM [facility]POS[facility] TYPE CODE TESTS RESULT OUT OF RANGE REFERENCE UNITS LAB L100.4500 Normal SMEAR COMMENT SCANNED Result Comment: 2+ CRENATED RBC's 3+ MACROCYTOSIS Performed By: #### L100.0500, L100.4500 #### [facility] [address] [place], [address] LACTIC ACID Collected: 03/08/2018 Status: F Source: [place] 4:02 AM [facility] REPOS[facility]ORY Order Comment: Yes/No query for Sepsis Lactate Rule Y TYPE CODE TESTS RESULT OUT OF REFERENCE UNITS RANGE LAB L503.6005 0.4-2.0 mmol/L High alert LACTIC ACID 9.2 Result Comment: Critical Result(s) Called at: 05:08:35 03/08/2018 by: ARLETH JUAREZ TO RADHA BEASLEY Performed By: #### L503.6005 #### [facility] [address] [place], [address] ABDOMEN SINGLE VIEW Observed: 03/08/2018 Status: F Source: [place] (PORTABLE) 3:00 AM [facility] REPOSITORY [facility] Imaging Services [address] [place] [address] Abdomen Single View (Portable) MR#: [id number] Acct: [id number] Name: IFEOMA ASHRAF Rep #: [id number] : 1965 F 52 From: Jin Rolon PCP: Sangeetha Irvin DO Status: ADM IN Study: Abdomen Single View (Portable) Date of Exam: 03/08/18 Exam# [id number] Ordering Dr: Monique Tamez DO STUDY: X-RAY - ABDOMEN/PELVIS REASON FOR EXAM: Female, 52 years old. Abdominal pain for one week. TECHNIQUE: AP supine abdomen. COMPARISON: Bottle Blowing Machine Tender view CT abdomen and pelvis June 15, 2017 FINDINGS: Normal visualized lung bases. There is an unremarkable bowel gas pattern. There is no demonstrated free abdominal air. The visualized liver, spleen and kidneys are grossly normal in size and morphology. Normal soft tissue structures. Normal visualized osseous structures. Surgical clips right upper quadrant. RAD/Abdomen Single View (Portable) IMPRESSION: Nonspecific bowel gas pattern without evidence of obstruction. Electronically Signed: Jin Rolon MD at 4:14 EDT , Service support , CC: Sangeetha Irvin DO; Monique Tamez DO Supervisor Laundry: Kerry Abreu [employer] Collected: 03/08/2018 Status: F Source: [place] DNA BY PCR 3:00 AM [facility] REPOSITORY Order Comment: RESULTS CALLED TO [facility] ICU 03/08/18 0459 Ansley Sarabia. REPORT READ BACK BY SAME. TYPE CODE TESTS RESULT OUT OF REFERENCE UNITS RANGE LAB L8200.1100 Negative High MRSA POSITIVE RESULT Performed By: #### L8200.1000 #### [facility] [address] [place], [address] HISTORY AND PHYSICAL Observed: 03/08/2018 Status: F Source: [place] EXAM 2:51 AM [facility] REPOSITORY [facility] Medical Records Department [address] [place] [address] History and Physical 03/08/18 0239 MR#: [id number] Acct: [id number] Name: IFEOMA ASHRAF Rep #: [id number] : 1965 52 From: Monique Tamez DO PCP: Sangeetha Irvin DO Status: ADM SANDRA Y Location: ICU ICU07-1 Problem List (1) Metabolic acidosis Status: Acute (2) Hyperkalemia Status: Acute (3) Syncope Status: Acute (4) FAN (acute kidney injury) Status: Acute History of Present Illness Date of Admission: 03/08/18 Chief Complaint: unresponsiveness The patient is a 52 year old F who was found unresponsive in the bathroom. Prior to that patient was cleaning some epigastric pain that she been dealing with for about a week went to the bathroom and was found unresponsive. Patient was brought to the emergency room and patient was found to have significant electrolyte derangements. Patient was found to have a potassium of 7.6, sodium 129 and a creatinine of 1.9. Lactic acid came back at 12.4. Patient noted to have a wide-complex EKG and did receive bicarbonate as well as IV fluids. Only, patient received calcium chloride and albuterol. Patient's subsequent potassium went down to 6.2. Patient also had a metabolic acidosis on ABG that the pH only improved slightly from 7.15-7.19 after administration of medications. Patient has subsequently been put on bicarbonate drip. Patient and family deny any toxic substance such as antifreeze ingestion. Patient's friend recently on Tuesday patient states that she has not been eating much but states that she has been drinking water. Patient denies any suicidal ideation. [] Past Medical History Past Medical History (Chronic Problems): Chronic Problems (Last Updated 11/28/17 @ 11:06 by Liza Landry) Type 2 diabetes mellitus without complications (Chronic) S/P implantation of automatic cardioverter/defibrillator (AICD) (Chronic) 10/06/2009 @ [facility] Cardiomyopathy in other diseases classified elsewhere (Chronic) Abnormal electrocardiogram (Chronic) Shortness of breath (Chronic) Diffuse large B-cell lymphoma (Chronic) Medical History: Medical History (Last Reviewed 03/08/18 @ 02:42 by Monique Tamez DO) Type 2 diabetes mellitus without complications (Chronic) E11.9 Cardiomyopathy in other diseases classified elsewhere (Chronic) I43 Abnormal electrocardiogram (Chronic) R94.31 Shortness of breath (Chronic) R06.02 Diffuse large B-cell lymphoma (Chronic) C83.30 Bilateral caract surgery Left - 09/28/17; Right - 10/20/17 Decomp laminectomy to remove T6-7 mass Depression F32.9 Fibromyalgia M79.7 Heel spur surgery History of hysteroscopy Z98.890 Left thyroid aspiration 06/22/17 - benign Replacement of generator for debrillator 11/10/17 Sleep apnea G47.30 Thyroid nodule E04.1 Allergies amitriptyline Adverse Reaction (Severe, Verified 11/28/17 11:08) Nightmares naproxen sodium [From Aleve] Adverse Reaction (Severe, Verified 11/28/17 11:08) Swelling Nasal swelling - causing difficulty breathing Sulfa (Sulfonamide Antibiotics) Adverse Reaction (Intermediate, Verified 11/28/17 11:08) Rash Latex, Natural Rubber Adverse Reaction (Mild, Verified 11/28/17 11:08) Other irritates/smith the skin Home Medications: Ambulatory Orders Medication Instructions Recorded Amitriptyline HCl 1 - 2 mg PO QHS PRN 03/07/18 Carvedilol [Coreg] 0.5 tab PO BID 03/07/18 Cholecalciferol (Vitamin D3) 5,000 unit PO DAILY 03/07/18 Surgical History: Surgical History (Last Reviewed 03/08/18 @ 02:42 by Monique Tamez DO) S/P implantation of automatic cardioverter/defibrillator (AICD) (Chronic) Z95.810 10/06/2009 @ [facility] History of cholecystectomy Z98.890, Z90.49 History of stem cell transplant Z94.84 Surgical History: - - cholecystecomy Smoking Status: Never smoker Tobacco Use: Non-smoker Alcohol: None Drugs: None - *Family History Maternal Family History: Family History (Last Reviewed 03/08/18 @ 02:42 by Monique Tamez DO) Father CVA (cerebral vascular accident) Diabetes Hypertension Mother Hypertension Brother Diabetes Hypertension History Items: Unknown Review of Systems Constitutional: Reports: Anorexia. Denies: Chills, Fever Eyes: Denies: Blurred vision, Double vision HEENT: Denies: Head Aches, Sinus Congestion, Sinus Drainage Cardiovascular: Reports: Edema - In right lower extremity. Denies: Chest Pain, Palpitations Respiratory: Denies: Cough, Shortness of breath at rest, Sputum production Gastrointestinal: Reports: Abdominal Pain. Denies: Nausea, Vomiting Genitourinary: Denies: Dysuria Musculoskeletal: Denies: Joint Pain, Joint Tenderness Skin: Denies: Rash, Wounds Neurological: Denies: Numbness, Tingling, Focal weakness Psychiatric: Denies: Anxiety, Depression Endocrine: Denies: Change in Body Habitus, Heat/ Cold Intolerance Hematologic/ Lymphatic: Denies: Easy Bruising, Easy Bleeding, Hx of blood clot Comment: Otherwise all review systems are negative except for as mentioned above in HPI and review of systems. VTE Information - Inpt Only VTE Present on Admission: No VTE Mechan Device Prophylaxis: SCD's VTE Pharm Prophylaxis ordered?: Yes Patient Problems: Active and Suspected Problems (Last Updated 11/28/17 @ 11:06 by Liza Landry) Metabolic acidosis (Acute) Hyperkalemia (Acute) Syncope (Acute) FAN (acute kidney injury) (Acute) - Physical Exam General: Alert, - - Listless. Afebrile. HEENT: Atraumatic, Normocephalic Oral: Moist Mucosa, No Gingival or Mucosal Lesions/ Ulcerations Neck: No Nodes, Thyroid Normal Size and Texture, - - Right IJ catheter Lungs: Clear to auscultation, Normal air movement, No rhonchi, No wheeze Cardiovascular: Regular rate, Regular Rhythm, Normal S1, Normal S2, No murmurs Abdomen: Bowel Sounds Present, Soft, Non Tender, Non-Distended, No Hepato-splenomegaly Extremities: No edema, No Calf Tenderness Skin: No rashes, No breakdown Musculoskeletal: No Tenderness to Palpation of Joints or Extremities, No Muscle Wasting Neurological: Deep Tendon Reflexes 2+/4 and Symmetrical, - - Sensation intact. Psych/Mental Status: Appropriate, Flat Affect Vital Signs Temp Pulse Resp BP Pulse Ox 37.3 C H 88 24 H 95/66 98 03/07/18 22:19 03/08/18 02:11 03/08/18 02:11 03/08/18 02:11 03/08/18 02:11 Laboratory Tests Past 24 Hrs Urine Color Yellow Urine Clarity Cloudy Clinical Impression(s) from Imaging Studies Chest X-Ray 03/07/18 22:32 IMPRESSION: Moderate cardiomegaly with no evidence of pulmonary vascular congestion. Electronically Signed: Lamberto Arreola DO at 23:00 EDT , Service support , Chest X-Ray 03/07/18 23:47 IMPRESSION: Right internal jugular central line with the tip at the junction of superior vena cava and right atrium, in its expected location. No pneumothorax. Stable cardiomegaly. Electronically Signed: Jin Rolon MD at 0:12 EDT , Service support , Brain CT 03/08/18 00:27 IMPRESSION: Normal unenhanced CT scan of the brain. 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 Metabolic acidosis * Unclear etiology at this time. Patient and family refused any kind of methanol nor ethylene glycol ingestion. The patient denies suicide attempt. * I suspect this may relate with the patient's renal failure but it is unclear given the degree of metabolic acidosis that she is sustained. * Will continue with the bicarbonate drip as well as IV fluids for now though would need to be cautious with IV fluid given patient's history of heart failure with reduced ejection fraction * Will repeat ABG this morning as well as BMP this morning as well. 2. Hyperkalemia * Improved with correction of the metabolic acidosis and would anticipate improved potassium levels with correction of the metabolic acidosis. * Patient did have EKG changes noted on EKG which have improved with correction of metabolic acidosis. * Given these EKGs findings patient will be admitted to the ICU for more intense monitoring. * I suspect is related to patient's renal failure but also her concomitant spironolactone usage. 3. Acute kidney injury * Patient had a creatinine of 1.17 from February 23 of this year and it was 1.9 upon admission today. I feel that this is likely prerenal in etiology and would anticipate improvements * Will hold diuretics for now and reassess. 4. Lactic acidosis * Likely just related with a metabolic acidosis but will follow that up. 5. Abdominal pain * Patient with some epigastric pain. Does not strike me as a surgical abdomen * Will check a flat plate x-ray. * If abdominal pain is ongoing and x-rays unremarkable would consider a CAT scan of the abdomen pelvis once patient is more medically stable 6. Heart failure with reduced ejection fraction * EF of 25% from March 12, 2015 * Patient's lisinopril will be held in light of the hyperkalemia. Continue with her carvedilol * Patient is receiving IV fluids and her diuretics are currently being held but would need to be very vigilant in regards to the patient is manifesting signs of heart failure that may need to discontinue or reduce the IV fluids. 7. Advanced care planning: Patient wishes to be full CODE STATUS with endotracheal intubation and PEG tube if necessary. 8. DVT prophylaxis with subcu heparin and SCDs. Code Visit Inpatient E AND M: [id number] Init Hosp L3 03/08/18 0251 <Electronically signed by Monique Tamez DO> Date Monique Tamez DO Cosigner Signature: Date (if applicable) CC: Sangeetha Irvin DO; Monique Tamez DO Signed URINE DRUG SCREEN Collected: 03/08/2018 Status: F Source: [place] (KAREEN) 1:55 AM [facility] REPOSITORY TYPE CODE TESTS RESULT OUT OF RANGE REFERENCE UNITS LAB L505.0075 TO BE Normal CONFIRMED Result Comment: CONFIRMATORY TESTING FOR ALL POSITIVE URINE DRUG SCREEN RESULTS WILL ONLY BE SENT OUT UPON PHYSICIAN ORDER. VISTA Urine Drug Screen methods provide only preliminary analytical test results. A more specific alternate chemical method must be used in order to obtain a confirmed analytical result. Gas chromatography/mass spectrometery (GC/MS) is the preferred confirmatory method. Clinical consideration and professional judgement should be applied to any drug of abuse test result, particularly when preliminary positive results are used. URINE TCA TESTING MUST BE ORDERED SEPARATELY. USE TEST MNEMONIC: [facility] LAB L505.5005 VISTA UDS PH 5 Normal LAB L505.5015 <1000 ng/mL AMPHETAMINES Normal NEGATIVE LAB L505.5025 < 200 ng/mL BARBITIURATES Normal NEGATIVE LAB L505.5035 < 200 ng/mL BENZODIAZIPINE Normal NEGATIVE LAB L505.5045 < 300 ng/mL COCAINE Normal NEGATIVE LAB L505.5055 < 500 ng/mL ECSTACY Normal NEGATIVE LAB L505.5065 < 300 ng/mL METHADONE Normal NEGATIVE LAB L505.5075 < 300 High ng/mL OPIATES POSITIVE LAB L505.5085 < 25 ng/mL PCP Normal NEGATIVE LAB L505.5095 < 50 ng/mL THC Normal NEGATIVE Performed By: #### L505.5000 #### [facility] [address] [place], [address] URINALYSIS, COMPLETE Collected: 03/08/2018 Status: F Source: [place] 1:55 AM [facility] REPOSITORY Order Comment: How was Urine Obtained? CATHETER SPECIMEN TYPE CODE TESTS RESULT OUT OF RANGE REFERENCE UNITS LAB L400.3000 Yellow COLOR Normal Yellow LAB L400.3050 Clear Normal CLARITY Cloudy LAB L400.3200 Normal mg/dl Normal GLUCOSE, UR Normal LAB L400.3300 Negative mg/dL High BILIRUBIN URINE 1 Result Comment: COLOR OF URINE MAY AFFECT DIPSTICK RESULTS. LAB L400.3400 Negative mg/dl High KETONE UR 50 LAB L400.3465 1.002-1.030 Normal SP.GR. DIPSTX 1.025 LAB L400.3550 5.0 - 8.0 pH Normal UR 5.0 LAB L400.3600 Negative mg/dl High PROT DIPSTX 100 LAB L400.3700 Normal mg/dl High UROBILI 4 LAB L400.3750 Negative Normal NITRITE UR Negative LAB L400.3780 Negative /ul High OCCULT 25 BLOOD-UR LAB L400.3800 Negative /ul High LEUK ESTERASE 100 LAB L400.4050 0-5 /hpf Normal WBC 5-10 SEEN LAB L400.4100 0-5 /hpf Normal RBC-UA 0-5 SEEN LAB L400.4150 5-10 /hpf Normal SQUAM EPI 0-5 SEEN LAB L400.4300 None Seen /hpf Normal BACTERIA RARE LAB L400.4350 <or=2+ /hpf Normal MUCUS, URINE 2+ LAB L400.4400 0-5 /lpf Normal HYALINE CAST 5-10 SEEN LAB L400.4900 Normal AMORPHOUS 2+ Performed By: #### L400.0001 #### [facility] [address] [place], [place], [id number] BEDSIDE GLUCOSE Collected: 03/08/2018 Status: F Source: [place] 12:59 AM [facility] REPOSITORY TYPE CODE TESTS RESULT OUT OF REFERENCE UNITS RANGE LAB L501.080 70-110 mg/dL High BEDSIDE GLU 169 Result Comment: MANAGEMENT OF PATIENT CARE PER NURSING PROTOCOL Performed By: #### L501.080 #### [facility] Point of Care [address] [place] [address] BLOOD GASES BY CPS Collected: 03/08/2018 Status: F Source: [place] 12:51 AM [facility] REPOSITORY TYPE CODE TESTS RESULT OUT OF RANGE REFERENCE UNITS LAB L9000.9990 Normal BLD GAS TYPE ART LAB L9001.1000 Normal SITE R Radial LAB L9001.1010 Normal JONNY TEST POS LAB L9001.1050 O2 Normal Delivery Dev Nasal Can LAB L9001.1055 /min Normal LPM 2.0 LAB L9001.1104 Normal Results To ED MD LAB L9001.1105 Normal Time Given 50 LAB L9001.1110 7.35-7.45 Low pH - I-STAT 7.20 LAB L9001.1210 35-45 mmHg Low pCO2 - ISTAT 24.4 LAB L9001.1310 75-100 mmHG High PO2 I-STAT 137 LAB L9001.2300 22-26 mmol/L Low HCO3 ISTAT 9.5 LAB L9001.2400 -2 to +2 mmol/L Low BE ISTAT -19 LAB L9001.2415 mmol/L Normal TOTAL CO2 10 ISTAT LAB L9001.2425 95-99 % Normal SO2 ISTAT 99 Performed By: #### L9000.0800 #### [facility] Point of Care [address] [place] [address] BASIC METABOLIC Collected: 03/08/2018 Status: F Source: [place] PROFILE (BMP) 12:35 AM [facility] REPOSITORY TYPE CODE TESTS RESULT OUT OF RANGE REFERENCE UNITS LAB L501.0100 74-106 mg/dL High GLU 176 Result Comment: Fasting Glucose result greater than or equal to 126 mg/dL suggests DIABETES MELLITUS per A.D.A. criteria. Please note revised GLUCOSE reference range effective 2017. LAB L501.1000 7-18 mg/dL High BUN 29 LAB L501.1100 0.55-1.02 mg/dL High CREAT,SERUM 1.74 Result Comment: The validity of the calculated GFR AND GFRAA in patients over 70 years has not been determined. Clinical correlation is essential. LAB L501.1110 >60 mL/min Low EST GFR 32 Result Comment: Non- GFR Calc LAB L501.1115 >60 mL/min Low EST GFR - AA 39 Result Comment: GFR Calc LAB L501.1300 10-20 RATIO Normal BUN/CRE 16.7 LAB L501.2200 8.5-10.1 mg/dL CA Normal 8.8 LAB L501.5300 136-145 mmol/L Low NA 135 LAB L501.5600 3.5-5.1 mmol/L High K alert 6.2 Result Comment: Critical Result(s) Called at: 01:06:28 03/08/2018 by: ANSLEY STANFORD,SUPERVISOR PHOSPHATIC FERTILIZER LAB L501.5900 98-107 mmol/L Normal CL 104 LAB L501.6100 21.0-32.0 mmol/L Low CO2 15.0 LAB L501.6200 5-15 High GAP 16 Performed By: #### L500.2500 #### [facility] [address] [facility] [place], [address] BRAIN/HEAD WITHOUT Observed: 03/08/2018 Status: F Source: [place] CONTRAST 12:27 AM [facility] REPOSITORY [facility] Imaging Services [address] [place] [address] Brain/Head without Contrast MR#: [id number] Acct: [id number] Name: IFEOMA ASHRAF Rep #: [id number] : 1965 F 52 From: Jin Rolon PCP: Sangeetha Irvin DO Status: REG ER Study: Brain/Head without Contrast Date of Exam: 03/08/18 Exam# [id number] Ordering Dr: Alejandro Lopez DO STUDY: CT BRAIN WITHOUT CONTRAST REASON FOR EXAM: Female, 52 years old. Altered mental status. Low blood sugar. Elevated blood pressure. History of Burkitt's lymphoma. RADIATION DOSAGE (If Supplied By Facility): CTDIvol = ( 44.99 ) mGy, DLP = ( 812.98 ) mGycm TECHNIQUE: Transaxial CT imaging of the brain was performed without administration of intravenous contrast material. Individualized dose optimization techniques were used for this CT. COMPARISON: February 05, 2014. FINDINGS: Normal soft tissue structures. Normal calvarium. Normal size ventricles and extra-axial spaces for the patient's age. Normal white matter tracts of the cerebral hemispheres. Normal basal ganglia and thalami. Normal brainstem. Normal cerebellum. There is no intracranial hemorrhage. There are no findings of an acute ischemic infarction. Normal visualized paranasal sinuses. CT/Brain/Head without Contrast IMPRESSION: Normal unenhanced CT scan of the brain. Electronically Signed: Jin Rolon MD at 1:58 EDT , Service support , CC: Alejandro Lopez DO; Sangeetha Irvin DO Supervisor Laundry: Signed PROTHROMBIN TIME W/INR Collected: 03/07/2018 Status: F Source: [place] 11:59 PM [facility] REPOSITORY TYPE CODE TESTS RESULT OUT OF RANGE REFERENCE UNITS LAB L300.4150 11.7-14.9 SECONDS High PROTIME 26.4 LAB L300.4200 Normal INR 2.4 Performed By: #### L300.3900, L300.4310 #### [facility] [address] [place], [address] PARTIAL THROMBOPLAST Collected: 03/07/2018 Status: F Source: [place] TIME 11:59 PM [facility] REPOSITORY TYPE CODE TESTS RESULT OUT OF RANGE REFERENCE UNITS LAB L300.4310 24.1-36.2 Seconds Normal PTT 33.7 Performed By: #### L300.3900, L300.4310 #### [facility] [address] [place], [address] ACETONE SERUM Collected: 03/07/2018 Status: F Source: [place] 11:59 PM [facility] REPOSITORY TYPE CODE TESTS RESULT OUT OF RANGE REFERENCE UNITS LAB L501.6900 NEG Normal ACETONE SERUM NEGATIVE Performed By: #### L501.6900 #### [facility] [address] [place], [address] DIGOXIN LEVEL Collected: 03/07/2018 Status: F Source: [place] 11:59 PM [facility] REPOSITORY TYPE CODE TESTS RESULT OUT OF RANGE REFERENCE UNITS LAB L501.7510 0.80-2.00 ng/mL Low DIG 0.32 Performed By: #### L501.7510 #### [facility] [address] [place], [address] LACTIC ACID Collected: 03/07/2018 Status: F Source: [place] 11:59 PM [facility] REPOSITORY Order Comment: Yes/No query for Sepsis Lactate Rule Y TYPE CODE TESTS RESULT OUT OF REFERENCE UNITS RANGE LAB L503.6005 0.4-2.0 mmol/L High alert LACTIC ACID 12.4 Result Comment: Critical Result(s) Called at: 00:52:58 03/08/2018 by: ANSLEY OWENS RN ED Performed By: #### L503.6005 #### [facility] [address] [place], [address] SALICYLATE Collected: 03/07/2018 Status: F Source: [place] 11:59 PM [facility] REPOSITORY TYPE CODE TESTS RESULT OUT OF REFERENCE UNITS RANGE LAB L501.8300 2.8-20.0 mg/dL Low SALICYLATE < 1.7 Result Comment: Slight Icterus, Result may be falsely decreased. Performed By: #### L501.8300, L501.8400, L501.9100 #### [facility] [address] [place], [address] ACETAMINOPHEN (TYLENOL) Collected: 03/07/2018 Status: F Source: [place] LEVEL 11:59 PM [facility] REPOSITORY TYPE CODE TESTS RESULT OUT OF REFERENCE UNITS RANGE LAB L501.8400 10.0-30.0 ug/mL ACETAMINOPHEN Low 4.9 Result Comment: Slight Icterus, Result may be falsely decreased. Performed By: #### L501.8300, L501.8400, L501.9100 #### [facility] [address] [place], [address] ALCOHOL, BLOOD Collected: 03/07/2018 Status: F Source: [place] (MEDICAL)-SERUM 11:59 PM [facility] REPOSITORY TYPE CODE TESTS RESULT OUT OF RANGE REFERENCE UNITS LAB L501.9100 mg/dL Normal SERUM 8.0 ETOH Result Comment: The serum:whole blood ethanol ratio is approximately 1.14 and varies slightly with hematocrit. Medical Alcohol reference interval and critical value in non-tolerant individuals; 50 - 100 Impairment 100 Intoxication 100 - 250 Severe Poisoning 250 - 400 Deep/possible fatal coma Performed By: #### L501.8300, L501.8400, L501.9100 #### [facility] [address] [place], [address] CXR FOR LINE PLACEMENT Observed: 03/07/2018 Status: F Source: [place] 11:48 PM [facility] RE[facility] Imaging Services [address] [place] [address] CXR for Line Placement MR#: [id number] Acct: [id number] Name: IFEOMA ASHRAF Rep #: [id number] : 1965 F 52 From: Jin Rolon PCP: Sangeetha Irvin DO Status: REG ER Study: CXR for Line Placement Date of Exam: 03/07/18 Exam# [id number] Ordering Dr: Alejandro Lopez DO STUDY: X-RAY CHEST REASON FOR EXAM: Female, 52 years old. Central line placement. TECHNIQUE: AP portable chest. COMPARISON: March 07, 2018 at 10:40 PM.. FINDINGS: There is now a right internal jugular central line with the tip at the junction of the superior vena cava and right atrium. No pneumothorax. The lungs are clear and expanded. There is no demonstrated pleural abnormality. Mild to moderate cardiac enlargement unchanged.. Normal mediastinum and kari. Normal visualized pulmonary arteries. Normal visualized aortic arch and descending thoracic aorta. Normal visualized thoracic spine. Normal visualized ribs, clavicles, and shoulders. Cardiac pacemaker left hemithorax. There is no demonstrated abnormality of the visualized soft tissue structures of the upper abdomen. RAD/CXR for Line Placement IMPRESSION: Right internal jugular central line with the tip at the junction of superior vena cava and right atrium, in its expected location. No pneumothorax. Stable cardiomegaly. Electronically Signed: Jin Rolon MD at 0:12 EDT , Service support , CC: Alejandro Lopez DO; Sangeetha Irvin DO Supervisor Laundry: Signed BLOOD GASES BY CPS Collected: 03/07/2018 Status: F Source: [place] 11:02 PM [facility] TYPE CODE TESTS RESULT OUT OF RANGE REFERENCE UNITS LAB L9000.9990 Normal BLD GAS TYPE ART LAB L9001.1000 Normal SITE L Radial LAB L9001.1010 Normal JONNY TEST POS LAB L9001.1050 O2 Normal Delivery Dev Nasal Can LAB L9001.1055 /min Normal LPM 2.0 LAB L9001.1104 Normal Results To ED LAB L9001.1105 Normal Time Given 1100 LAB L9001.1110 7.35-7.45 Low pH alert - I-STAT 7.15 LAB L9001.1210 35-45 mmHg Low alert pCO2 - ISTAT 18.0 LAB L9001.1310 75-100 mmHG High PO2 I-STAT 149 LAB L9001.2300 22-26 mmol/L Low HCO3 ISTAT 6.2 LAB L9001.2400 -2 to +2 mmol/L Low BE ISTAT -23 LAB L9001.2415 mmol/L Normal TOTAL CO2 7 ISTAT LAB L9001.2425 95-99 % Normal SO2 ISTAT 99 Performed By: #### L9000.0800 #### [facility] Point of Care [address] [place] [address] BEDSIDE GLUCOSE Collected: 03/07/2018 Status: F Source: [place] 10:52 PM [facility] TYPE CODE TESTS RESULT OUT OF REFERENCE UNITS RANGE LAB L501.080 70-110 mg/dL High BEDSIDE GLU 214 Result Comment: MANAGEMENT OF PATIENT CARE PER NURSING PROTOCOL Performed By: #### L501.080 #### [facility] Point of Care [address] [place] [address] CBC W/DIFF, AUTOMATED Collected: 03/07/2018 Status: F Source: [place] 10:37 PM [facility] TYPE CODE TESTS RESULT OUT OF RANGE REFERENCE UNITS LAB L100.1000 4.4-11.0 K/mm3 Normal WBC 5.5 LAB L100.1200 4.2-5.4 M/mm3 Low RBC 3.50 LAB L100.1300 12.0-15.0 g/dl Low HGB 10.8 LAB L100.1400 37-47 % Low HCT 36.9 LAB L100.1500 81-99 fL High MCV 105.4 LAB L100.1600 27.0-32.0 pg Normal MCH 30.9 LAB L100.1700 32-36 g/gl Low MCHC 29.3 LAB L100.1810 11.6-14.6 % High RDW CV 19.3 LAB L100.1820 35.1-43.9 fl High RDW SD 75.0 LAB L100.1900 150-450 K/mm3 Normal PLT 170 LAB L100.2000 6.2-12.0 fl Normal MPV 11.4 LAB L100.2100 47-70 % High NEUT% 79.9 LAB L100.2200 19-41 % Low LY% 12.3 LAB L100.2300 0-10 % Normal MONO% 7.1 LAB L100.2400 0-5 % Normal EO% 0.0 LAB L100.2500 0-1 % Normal BASO% 0.2 LAB L100.2550 0.0-0.9 % Normal IM GRAN % 0.500 Result Comment: IG% - Immature Granulocytes (promyelocytes, myelocytes and metamyelocytes) > 1% indicates that a LEFT SHIFT is Present. LAB L100.2620 2.0-7.7 X10 3/uL Normal Absolute Neut 4.4 LAB L100.2720 0.83-4.51 X10 3/ul Low Absolute Lymph 0.68 LAB L100.4500 Normal SMEAR COMMENT SCANNED LAB L100.7300 Normal ANISO 1+ LAB L100.8100 Normal CRENATED RBC 1+ Performed By: #### L100.0100 #### [facility] [address] [place], [address] BASIC METABOLIC Collected: 03/07/2018 Status: F Source: [place] PROFILE (BMP) 10:37 PM [facility] TYPE CODE TESTS RESULT OUT OF RANGE REFERENCE UNITS LAB L501.0100 74-106 mg/dL High GLU 310 Result Comment: Glucose result greater than or equal to 200 mg/dL suggests DIABETES MELLITUS per A.D.A. criteria. Please note revised GLUCOSE reference range effective 2017. LAB L501.1000 7-18 mg/dL High BUN 30 LAB L501.1100 0.55-1.02 mg/dL High CREAT,SERUM 1.90 Result Comment: The validity of the calculated GFR AND GFRAA in patients over 70 years has not been determined. Clinical correlation is essential. LAB L501.1110 >60 mL/min Low EST GFR 29 Result Comment: Non- GFR Calc LAB L501.1115 >60 mL/min Low EST GFR - AA 35 Result Comment: GFR Calc LAB L501.1300 10-20 RATIO Normal BUN/CRE 15.8 LAB L501.2200 8.5-10.1 mg/dL CA Normal 8.5 LAB L501.5300 136-145 mmol/L Low NA 129 LAB L501.5600 3.5-5.1 mmol/L High K alert 7.6 Result Comment: Moderate Hemolysis, Result may be falsely increased .Critical Result(s) Called at: 23:10:30 03/07/2018 by: Chelsea jimenez TO DR. LOPEZ LAB L501.5900 98-107 mmol/L Normal CL 99 LAB L501.6100 21.0-32.0 mmol/L Low CO2 11.0 LAB L501.6200 5-15 High GAP 19 Performed By: #### L500.2500, L500.3400, L501.2450, L501.4010, L501.5200 #### [facility] [address] [facility] [place], [place], [id number] LIVER PROFILE Collected: 03/07/2018 Status: F Source: [place] 10:37 PM [facility] TYPE CODE TESTS RESULT OUT OF RANGE REFERENCE UNITS LAB L501.1500 6.4-8.2 g/dL Low T PROT 5.9 LAB L501.1800 3.2-5.0 g/dL Low ALB 3.0 LAB L501.1950 2.2-4.2 g/dL Normal GLOB 2.9 LAB L501.4100 15-37 U/L High AST 149 Result Comment: Moderate Hemolysis, Result may be falsely increased. LAB L501.4305 45-117 U/L Normal ALK P 94 LAB L501.4405 13-56 U/L High ALT 120 LAB L501.4600 0.20-1.00 mg/dL High T BILI 2.40 LAB L501.4700 0.00-0.30 mg/dL High D BILI 1.07 Performed By: #### L500.2500, L500.3400, L501.2450, L501.4010, L501.5200 #### [facility] [address] [facility] [place], [place], [id number] LIPASE Collected: 03/07/2018 Status: F Source: [place] 10:37 PM [facility] TYPE CODE TESTS RESULT OUT OF RANGE REFERENCE UNITS LAB L501.2450 73-393 U/L Normal LIPASE 86 Performed By: #### L500.2500, L500.3400, L501.2450, L501.4010, L501.5200 #### [facility] [address] [facility] [place], [place], [id number] TROPONIN-I Collected: 03/07/2018 Status: F Source: [place] 10:37 PM [facility] TYPE CODE TESTS RESULT OUT OF RANGE REFERENCE UNITS LAB L501.4010 <0.045 ng/mL High 0.081 TROPONIN-I Result Comment: TROPONIN-I EXPECTED VALUES <0.045 Negative 0.045 - 0.590 Consistent with Cardiac Damage > OR = 0.600 Critical Value Not every elevated troponin is indicative of SD. These values should be used with clinical judgement in examining the patient's clinical picture for diagnosis. To establish a diagnosis of SD versus myocardial injury, there must be a demonstrated rise and/or fall in the troponin values, in addition to ischemic symptoms, EKG changes, new regional wall motion abnormality, and/or angiographical evidence. PLEASE NOTE: REFERENCE RANGES EDITED 18 Performed By: #### L500.2500, L500.3400, L501.2450, L501.4010, L501.5200 #### [facility] [address] [facility] [place], [address] MAGNESIUM Collected: 03/07/2018 Status: F Source: [place] 10:37 PM [facility] TYPE CODE TESTS RESULT OUT OF RANGE REFERENCE UNITS LAB L501.5200 1.6-2.6 mg/dL Normal MG 2.0 Result Comment: Moderate Hemolysis, Result may be falsely increased. Performed By: #### L500.2500, L500.3400, L501.2450, L501.4010, L501.5200 #### [facility] [address] [facility] [place], [address] CHEST 1 VIEW Observed: 03/07/2018 Status: F Source: [place] (PORTABLE) 10:33 PM [facility] Imaging Services [address] [place] [address] Chest 1 View (Portable) MR#: [id number] Acct: [id number] Name: IFEOMA ASHRAF Rep #: [id number] : 1965 F 52 From: Lamberto Arreola DO PCP: Sangeetha Irvin DO Status: REG ER Study: Chest 1 View (Portable) Date of Exam: 03/07/18 Exam# [id number] Ordering Dr: Alejandro Lopez DO STUDY: X-RAY CHEST REASON FOR EXAM: Female, 52 years old. Chest pain. TECHNIQUE: Single AP portable view of the chest. COMPARISON: Afebrile 2017 FINDINGS: Left pacer in place with lead overlying the right atrium. There is no demonstrated pleural abnormality. There is moderate cardiac enlargement. Normal mediastinum and kari. Normal visualized pulmonary arteries. Normal visualized aortic arch and descending thoracic aorta. Normal visualized thoracic spine. Normal visualized ribs, clavicles, and shoulders. There is no demonstrated abnormality of the visualized soft tissue structures of the upper abdomen. RAD/Chest 1 View (Portable) IMPRESSION: Moderate cardiomegaly with no evidence of pulmonary vascular congestion. Electronically Signed: Lamberto Arreola DO at 23:00 EDT , Service support , CC: Alejandro Lopez DO; Sangeetha Irvin DO Supervisor Laundry: Signed BEDSIDE GLUCOSE Collected: 03/07/2018 Status: F Source: [place] 10:10 PM [facility] TYPE CODE TESTS RESULT OUT OF REFERENCE UNITS RANGE LAB L501.080 70-110 mg/dL Low alert BEDSIDE GLU 20 Result Comment: MANAGEMENT OF PATIENT CARE PER NURSING PROTOCOL Performed By: #### L501.080 #### [facility] Point of Care [facility] [address] [place], [place] [address] CBC W/DIFF, AUTOMATED Collected: 02/23/2018 Status: F Source: [place] 3:19 PM [facility] Order Comment: Order Date: 02/23/18 Order Info: [id number] - CBCD Order Info: 05549-1 - SED TYPE CODE TESTS RESULT OUT OF RANGE REFERENCE UNITS LAB L100.1000 4.4-11.0 K/mm3 Normal WBC 6.9 LAB L100.1200 4.2-5.4 M/mm3 Low RBC 3.35 LAB L100.1300 12.0-15.0 g/dl Low HGB 10.7 LAB L100.1400 37-47 % Low HCT 34.2 LAB L100.1500 81-99 fL High MCV 102.1 LAB L100.1600 27.0-32.0 pg Normal MCH 31.9 LAB L100.1700 32-36 g/gl Low MCHC 31.3 LAB L100.1810 11.6-14.6 % High RDW CV 18.3 LAB L100.1820 35.1-43.9 fl High RDW SD 66.8 LAB L100.1900 150-450 K/mm3 Normal PLT 276 LAB L100.2000 6.2-12.0 fl Normal MPV 10.8 LAB L100.2100 47-70 % High NEUT% 78.7 LAB L100.2200 19-41 % Low LY% 12.0 LAB L100.2300 0-10 % Normal MONO% 8.2 LAB L100.2400 0-5 % Normal EO% 0.4 LAB L100.2500 0-1 % Normal BASO% 0.6 LAB L100.2550 0.0-0.9 % Normal IM GRAN % 0.100 Result Comment: IG% - Immature Granulocytes (promyelocytes, myelocytes and metamyelocytes) > 1% indicates that a LEFT SHIFT is Present. LAB L100.2620 2.0-7.7 X10 3/uL Normal Absolute Neut 5.4 LAB L100.2720 0.83-4.51 X10 3/ul Low Absolute Lymph 0.82 LAB L100.7300 ANISO Normal RARE LAB L100.7800 Normal MACROCYTE 1+ Performed By: #### L100.0100, L101.9900, L500.4050, L501.2400, L501.2450 #### [facility] [address] [place], [place], [address] ERYTHROCYTE SED RATE Collected: 02/23/2018 Status: F Source: [place] 3:19 PM [facility] Order Comment: Order Date: 02/23/18 Order Info: [id number] - CBCD Order Info: 61081-7 - SED TYPE CODE TESTS RESULT OUT OF RANGE REFERENCE UNITS LAB L102.0000 0-30 mm/hr Normal SED RATE 16 Performed By: #### L100.0100, L101.9900, L500.4050, L501.2400, L501.2450 #### [facility] [place], [address] COMPREHENSIVE METABOLIC Collected: 02/23/2018 Status: F Source: [place] 3:19 PM [facility] Order Comment: Order Date: 02/23/18 Order Info: [id number] - CMP Order Info: 1798-8 - NAJMA Order Info: 3040-3 - [place] TYPE CODE TESTS RESULT OUT OF RANGE REFERENCE UNITS LAB L501.0100 74-106 mg/dL High GLU 120 Result Comment: Fasting Glucose result from 100 to 125 mg/dL suggests IMPAIRED HOMEOSTASIS per A.D.A. criteria. Please note revised GLUCOSE reference range effective 2017. LAB L501.1000 7-18 mg/dL Normal BUN 16 LAB L501.1100 0.55-1.02 mg/dL High CREAT,SERUM 1.17 Result Comment: The validity of the calculated GFR AND GFRAA in patients over 70 years has not been determined. Clinical correlation is essential. LAB L501.1110 >60 mL/min Low EST GFR 51 Result Comment: Non- GFR Calc LAB L501.1115 >60 mL/min Normal EST GFR - AA 62 Result Comment: GFR Calc LAB L501.1300 10-20 RATIO Normal BUN/CRE 13.7 LAB L501.1500 6.4-8.2 g/dL Low T PROT 6.3 LAB L501.1800 3.2-5.0 g/dL Normal ALB 3.7 LAB L501.1950 2.2-4.2 g/dL Normal GLOB 2.6 LAB L501.2000 0.9-2.4 RATIO Normal A/G 1.4 LAB L501.2200 8.5-10.1 mg/dL CA Normal 9.2 LAB L501.4100 15-37 U/L High AST 186 LAB L501.4305 45-117 U/L Normal ALK P 105 LAB L501.4405 13-56 U/L High ALT 86 LAB L501.4600 0.20-1.00 mg/dL High T BILI 2.10 LAB L501.5300 136-145 mmol/L Low NA 134 LAB L501.5600 3.5-5.1 mmol/L K Normal 5.1 LAB L501.5900 98-107 mmol/L CL Normal 98 LAB L501.6100 21.0-32.0 mmol/L Normal CO2 25.0 LAB L501.6200 5-15 Normal GAP 11 Performed By: #### L100.0100, L101.9900, L500.4050, L501.2400, L501.2450 #### [facility] [address] [place], [address] AMYLASE Collected: 02/23/2018 Status: F Source: [place] 3:19 PM [facility] RE[facility] Order Comment: Order Date: 02/23/18 Order Info: [id number] - CMP Order Info: [id number] - NAJMA Order Info: 3040-3 - [place] TYPE CODE TESTS RESULT OUT OF RANGE REFERENCE UNITS LAB L501.2400 25-115 U/L Normal NAJMA 27 Performed By: #### L100.0100, L101.9900, L500.4050, L501.2400, L501.2450 #### [facility] [address] [place], [address] LIPASE Collected: 02/23/2018 Status: F Source: [place] 3:19 PM [facility] RE[facility] Order Comment: Order Date: 02/23/18 Order Info: [id number] - CMP Order Info: [id number] - NAJMA Order Info: 3040-3 - [place] TYPE CODE TESTS RESULT OUT OF RANGE REFERENCE UNITS LAB L501.2450 73-393 U/L Normal LIPASE 92 Performed By: #### L100.0100, L101.9900, L500.4050, L501.2400, L501.2450 #### [facility] [address] [place], [address] CBC W/DIFF, AUTOMATED Collected: 01/26/2018 Status: F Source: [place] 11:15 AM [facility] REPOS[facility] Order Comment: CMP, CBCD IS FOR DR MÉNDEZ REST IS FOR DR IRVIN TYPE CODE TESTS RESULT OUT OF RANGE REFERENCE UNITS LAB L100.1000 4.4-11.0 K/mm3 Normal WBC 5.3 LAB L100.1200 4.2-5.4 M/mm3 Low RBC 3.31 LAB L100.1300 12.0-15.0 g/dl Low HGB 10.4 LAB L100.1400 37-47 % Low HCT 33.8 LAB L100.1500 81-99 fL High MCV 102.1 LAB L100.1600 27.0-32.0 pg Normal MCH 31.4 LAB L100.1700 32-36 g/gl Low MCHC 30.8 LAB L100.1810 11.6-14.6 % High RDW CV 17.7 LAB L100.1820 35.1-43.9 fl High RDW SD 65.5 LAB L100.1900 150-450 K/mm3 Normal PLT 273 LAB L100.2000 6.2-12.0 fl Normal MPV 9.7 LAB L100.2100 47-70 % High NEUT% 85.1 LAB L100.2200 19-41 % Low LY% 7.8 LAB L100.2300 0-10 % Normal MONO% 4.2 LAB L100.2400 0-5 % Normal EO% 2.5 LAB L100.2500 0-1 % Normal BASO% 0.2 LAB L100.2550 0.0-0.9 % Normal IM GRAN % 0.200 Result Comment: IG% - Immature Granulocytes (promyelocytes, myelocytes and metamyelocytes) > 1% indicates that a LEFT SHIFT is Present. LAB L100.2620 2.0-7.7 X10 3/uL Normal Absolute Neut 4.5 LAB L100.2720 0.83-4.51 X10 3/ul Low Absolute Lymph 0.41 LAB L100.7300 ANISO Normal 1+ Performed By: #### L100.0100 #### [facility] [address] [place], [place], [id number] MICROALB:CREAT Collected: 01/26/2018 Status: F Source: [facility] 11:15 AM [facility] REPOS[facility] Order Comment: CMP, CBCD IS FOR DR MÉNDEZ REST IS FOR DR IRVIN TYPE CODE TESTS RESULT OUT OF RANGE REFERENCE UNITS LAB L501.1200 NO RANGE EST. mg/dL Normal UR CREAT 171.00 LAB L502.0500 NO RANGE EST. mg/L Normal 58.6 MICROALBUMIN ,UR LAB L502.0600 <30 mg/g CRE mg/g CRE High 34.3 MALB:CREAT Performed By: #### L502.0250 #### [facility] [address] [place], [address] COMPREHENSIVE METABOLIC Collected: 01/26/2018 Status: F Source: [place] [facility] 11:15 AM [facility] RE[facility] Order Comment: CMP, CBCD IS FOR DR MÉNDEZ REST IS FOR DR IRVIN TYPE CODE TESTS RESULT OUT OF RANGE REFERENCE UNITS LAB L501.0100 74-106 mg/dL High GLU 107 Result Comment: Fasting Glucose result from 100 to 125 mg/dL suggests IMPAIRED HOMEOSTASIS per A.D.A. criteria. Please note revised GLUCOSE reference range effective 2017. LAB L501.1000 7-18 mg/dL Normal BUN 16 LAB L501.1100 0.55-1.02 mg/dL High CREAT,SERUM 1.12 Result Comment: The validity of the calculated GFR AND GFRAA in patients over 70 years has not been determined. Clinical correlation is essential. LAB L501.1110 >60 mL/min Low EST GFR 54 Result Comment: Non- GFR Calc LAB L501.1115 >60 mL/min Normal EST GFR - AA 65 Result Comment: GFR Calc LAB L501.1300 10-20 RATIO Normal BUN/CRE 14.3 LAB L501.1500 6.4-8.2 g/dL T Normal PROT 6.7 LAB L501.1800 3.2-5.0 g/dL Normal ALB 3.5 LAB L501.1950 2.2-4.2 g/dL Normal GLOB 3.2 LAB L501.2000 0.9-2.4 RATIO Normal A/G 1.1 LAB L501.2200 8.5-10.1 mg/dL CA Normal 9.3 LAB L501.4100 15-37 U/L Normal AST 26 LAB L501.4305 45-117 U/L Normal ALK P 109 LAB L501.4405 13-56 U/L Normal ALT 21 LAB L501.4600 0.20-1.00 mg/dL High T BILI 1.10 LAB L501.5300 136-145 mmol/L NA Normal 138 LAB L501.5600 3.5-5.1 mmol/L K Normal 4.6 LAB L501.5900 98-107 mmol/L CL Normal 102 LAB L501.6100 21.0-32.0 mmol/L Normal CO2 27.0 LAB L501.6200 5-15 Normal GAP 9 Performed By: #### L500.4050, L500.4100, L501.2400, L501.2450, L501.5200, L501.9520 #### [facility] [address] [place], [place], [id number] LIPID PROFILE Collected: 01/26/2018 Status: F Source: [place] 11:15 AM [facility] REPOS[facility] Order Comment: CMP, CBCD IS FOR DR JACINDA BRANCH IS FOR DR IRVIN TYPE CODE TESTS RESULT OUT OF RANGE REFERENCE UNITS LAB L501.4900 200 mg/dL Normal CHOL 77 Result Comment: <200 mg/dL Desirable 200-240 mg/dL Borderline >240 mg/dL High Risk LAB L501.5000 mg/dL Normal TRIG 76 Result Comment: The drugs N-Acetylcysteine and Metamizole may falsely depress this assay. Serum Triglycerides Reference Interval Normal <150 mg/dL Borderline high 150 - 199 mg/dL High 200 - 499 mg/dL Very High > or = 500 mg/dL LAB L501.6400 mg/dL Low HDL 29 Result Comment: The drugs N-Acetylcysteine and Metamizole may falsely depress this assay. Reference Range HDL <40 mg/dL Low HDL Cholesterol HDL >or= 60 mg/dL High HDL Cholesterol LAB L501.6500 0-130 mg/dL Normal LDL 33 LAB L501.6600 5-40 mg/dL Normal VLDL 15 Performed By: #### L500.4050, L500.4100, L501.2400, L501.2450, L501.5200, L501.9520 #### [facility] [address] [place], [place], [id number] AMYLASE Collected: 01/26/2018 Status: F Source: [place] 11:15 AM [facility] REPOS[facility] Order Comment: CMP, CBCD IS FOR DR JACINDA BRANCH IS FOR DR IRVIN TYPE CODE TESTS RESULT OUT OF RANGE REFERENCE UNITS LAB L501.2400 25-115 U/L Normal NAJMA 29 Performed By: #### L500.4050, L500.4100, L501.2400, L501.2450, L501.5200, L501.9520 #### [facility] [address] [place], [place], [address] LIPASE Collected: 01/26/2018 Status: F Source: [place] 11:15 AM [facility] REPOS[facility] Order Comment: CMP, CBCD IS FOR DR JACINDA BRANCH IS FOR FAST TYPE CODE TESTS RESULT OUT OF RANGE REFERENCE UNITS LAB L501.2450 73-393 U/L Normal LIPASE 101 Performed By: #### L500.4050, L500.4100, L501.2400, L501.2450, L501.5200, L501.9520 #### [facility] [place], [place], [address] MAGNESIUM Collected: 01/26/2018 Status: F Source: [place] 11:15 AM [facility] REPOS[facility] Order Comment: CMP, CBCD IS FOR DR JACINDA BRANCH IS FOR FAST TYPE CODE TESTS RESULT OUT OF RANGE REFERENCE UNITS LAB L501.5200 1.6-2.6 mg/dL Normal MG 1.8 Performed By: #### L500.4050, L500.4100, L501.2400, L501.2450, L501.5200, L501.9520 #### [facility] [place], [place], [address] THYROID STIM HORMONE Collected: 01/26/2018 Status: F Source: [place] ([facility]) 11:15 AM [facility] RE[facility] Order Comment: CMP, CBCD IS FOR DR JACINDA BRANCH IS FOR FAST TYPE CODE TESTS RESULT OUT OF RANGE REFERENCE UNITS LAB L501.9520 0.358-3.74 uIU/mL Normal TSH 1.84 Performed By: #### L500.4050, L500.4100, L501.2400, L501.2450, L501.5200, L501.9520 #### [facility] [address] [place], [address] DIGOXIN LEVEL Collected: 01/26/2018 Status: F Source: [place] 11:15 AM [facility] REPOS[facility] Order Comment: CMP, CBCD IS FOR DR MÉNDEZ REST IS FOR DR IRVIN TYPE CODE TESTS RESULT OUT OF RANGE REFERENCE UNITS LAB L501.7510 0.80-2.00 ng/mL Normal DIG 0.92 Performed By: #### L501.7510 #### [facility] [address] [place], [address] VITAMIN B12 Collected: 01/26/2018 Status: F Source: [place] 11:15 AM [facility] Order Comment: CMP, CBCD IS FOR DR MÉNDEZ REST IS FOR DR IRVIN TYPE CODE TESTS RESULT OUT OF RANGE REFERENCE UNITS LAB L503.0105 211-911 pg/mL Normal Vitamin B12 383 Performed By: #### L503.0105, L506.1000 #### [facility] [place], [address] VITAMIN D,25 HYDROXY Collected: 01/26/2018 Status: F Source: [place] 11:15 AM [facility] Order Comment: CMP, CBCD IS FOR DR JACINDA BRANCH IS FOR DR IRVIN TYPE CODE TESTS RESULT OUT OF RANGE REFERENCE UNITS LAB L506.1000 29.95-100.01 ng/mL Normal Vitamin D 72.0 25-OH Result Comment: Vitamin D 25(OH) Status Range Deficiency <20 ng/mL (50nmol/L) Insuffciency 20 - 30 ng/mL (50 - 75 nmol/L) Sufficiency 30 - 100 ng/mL (75 - 250 nmol/L) Toxicity >100 ng/mL (>250 nmol/L) Performed By: #### L503.0105, L506.1000 #### [facility] [place], [address] TXT - BLOOD FLOW Observed: 11/22/2017 Status: F Source: [place] 3:18 PM [facility] RE[facility] Cardiovascular Services [address] [place] [address] 11/22/17 0803 MR#: [id number] Acct: [id number] Name: IFEOMA ASHRAF Rep #: [id number] : 1965 52 From: Juanjo Russo MD Attending Dr: Sangeetha Irvin DO Status: REG REF Ordering Dr: Date: 11/22/17 Location: [facility] Sex: F C Admitted: Carotid Duplex Ultrasound Abdominal Aorta The right ECA velocity is less than 125 cm/s. The maximal outside diameter of the proximal The right maximum ICA velocity is 55.7/23.5 cm/s.aorta measures 1.33 cm in the longitudinal axis. There is insignificant plaque formation noted on The maximal outside diameter of the proximal the right side. aorta measures 1.24 x 1.22 cm in the cross- The left ECA velocity is less than 125 cm/s. sectional axis. The left maximum ICA velocity is 49.2/17.6 cm/s. There is insignificant plaque formation noted on the left side. Ankle Brachial Index The right ankle/ brachial index is 1.0. The left ankle/ brachial index is 1.1. Medical History and Assessment The patient presents with a history of CHF, HTN, and DM. The heart rate is 90 beats per minute. The heart rhythm is regular. The right blood pressure is 100/70. The left blood pressure is 98/72. The assessment was performed by Steph Galvan RVT. Interpretation Summary Normal carotid artery screening (0 to 15% narrowing). Normal aortic ultrasound exam. The ankle/brachial index is normal (1.0 or greater). .rdering Physician: Sangeetha Irvin D.O Performed By: Orlando Galvan RVT 11/22/17 1518 Date Juanjo Russo MD CC: Sangeetha Irvin DO Date Dictated: 11/22/17 0803 Date Transcribed: 11/22/17 1518 Supervisor Laundry: Signed CBC W/DIFF, AUTOMATED Collected: 11/22/2017 Status: F Source: [place] 8:35 AM [facility] REPOSITORY TYPE CODE TESTS RESULT OUT OF RANGE REFERENCE UNITS LAB L100.1000 4.4-11.0 K/mm3 Low WBC 4.2 LAB L100.1200 4.2-5.4 M/mm3 Low RBC 3.77 LAB L100.1300 12.0-15.0 g/dl Low HGB 11.9 LAB L100.1400 37-47 % Normal HCT 37.3 LAB L100.1500 81-99 fL Normal MCV 98.9 LAB L100.1600 27.0-32.0 pg Normal MCH 31.6 LAB L100.1700 32-36 g/gl Low MCHC 31.9 LAB L100.1810 11.6-14.6 % High RDW CV 14.9 LAB L100.1820 35.1-43.9 fl High RDW SD 53.6 LAB L100.1900 150-450 K/mm3 Normal PLT 306 LAB L100.2000 6.2-12.0 fl Normal MPV 9.1 LAB L100.2100 47-70 % Normal NEUT% 53.8 LAB L100.2200 19-41 % Normal LY% 30.7 LAB L100.2300 0-10 % High MONO% 11.3 LAB L100.2400 0-5 % Normal EO% 3.5 LAB L100.2500 0-1 % Normal BASO% 0.5 LAB L100.2550 0.0-0.9 % Normal IM GRAN % 0.200 Result Comment: IG% - Immature Granulocytes (promyelocytes, myelocytes and metamyelocytes) > 1% indicates that a LEFT SHIFT is Present. LAB L100.2620 2.0-7.7 X10 3/uL Normal Absolute Neut 2.3 LAB L100.2720 0.83-4.51 X10 3/ul Normal Absolute Lymph 1.30 Performed By: #### L100.0100 #### [facility] [address] [place], [address] COMPREHENSIVE METABOLIC Collected: 11/22/2017 Status: F Source: [place] 8:33 AM [facility] REPOSITORY Order Comment: Reason for Laboratory Test OV TYPE CODE TESTS RESULT OUT OF RANGE REFERENCE UNITS LAB L501.0100 74-106 mg/dL High GLU 122 Result Comment: Fasting Glucose result from 100 to 125 mg/dL suggests IMPAIRED HOMEOSTASIS per A.D.A. criteria. Please note revised GLUCOSE reference range effective 2017. LAB L501.1000 7-18 mg/dL Normal BUN 13 LAB L501.1100 0.55-1.02 mg/dL Normal CREAT,SERUM 0.85 Result Comment: The validity of the calculated GFR AND GFRAA in patients over 70 years has not been determined. Clinical correlation is essential. LAB L501.1110 >60 mL/min Normal EST GFR 74 Result Comment: Non- GFR Calc LAB L501.1115 >60 mL/min Normal EST GFR - AA 90 Result Comment: GFR Calc LAB L501.1300 10-20 RATIO Normal BUN/CRE 15.3 LAB L501.1500 6.4-8.2 g/dL T Normal PROT 6.9 LAB L501.1800 3.2-5.0 g/dL Normal ALB 3.6 LAB L501.1950 2.2-4.2 g/dL Normal GLOB 3.3 LAB L501.2000 0.9-2.4 RATIO Normal A/G 1.1 LAB L501.2200 8.5-10.1 mg/dL CA Normal 9.3 LAB L501.4100 15-37 U/L Normal AST 34 LAB L501.4305 45-117 U/L Normal ALK P 102 LAB L501.4405 13-56 U/L Normal ALT 27 Result Comment: Please note revised ALT reference range effective 2017. LAB L501.4600 0.20-1.00 mg/dL Normal T BILI 0.70 LAB L501.5300 136-145 mmol/L Normal NA 138 LAB L501.5600 3.5-5.1 mmol/L Low K 3.4 LAB L501.5900 98-107 mmol/L Normal CL 99 LAB L501.6100 21.0-32.0 mmol/L Normal CO2 31.0 LAB L501.6200 5-15 Normal GAP 8 Performed By: #### L500.4050, L504.2610 #### [facility] [address] [place], [address] LDH Collected: 11/22/2017 Status: F Source: [place] 8:33 AM [facility] REPOSITORY Order Comment: Reason for Laboratory Test OV Serial Specimen #1, #2 or #3? 1 TYPE CODE TESTS RESULT OUT OF RANGE REFERENCE UNITS LAB L504.2610 84-246 U/L Normal LDH 198 Performed By: #### L500.4050, L504.2610 #### [facility] [address] [place], [address] OFFICE VISIT REPORT Observed: 11/18/2017 Status: F Source: [place] 8:13 AM [facility] REPOSITORY [facility] [address] [place] [address] OFFICE VISIT Date of Service: 11/17/17 MR#: [id number] Acct: [id number] Patient: IFEOMA ASHRAF Rep #: [id number] : 1965 Provider: Danica Pickering Age/Sex: 52/F [place] [facility] Status: Signed Comments Summary Comments: Wound Check: 1 wk post ICD generator change Wound check completed. Left pectoral pocket/incision open to air with steri-strips intact. A few of loose steri-strips removed. Incision well approximated w/o redness or drainage. No hematoma noted. Mild ecchymosis under arm. Mild tape irritation noted at top of pocket site from opsite. Pt afebrile T=97.8 degrees F temporally. Pt scheduled for f/u device check in 3 mos. Device Device Date Interviewed: 11/17/17 Follow-up Location: in office Interview Reason: scheduled follow up Photographs Curator: [employer] Name: [employer] VR Model: [id number] Serial #: [id number] Implant Date: 11/10/17 Year(s): 0 Implant Physician: Dr. 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 Model Lead 1: 7121Q/58 Serial# Lead 1: [id number] Date Implanted Lead 1: 10/10/09 Position Lead [...] Problems 1. S/P implantation of automatic cardioverter/defibrillator (AICD) Z95.810 10/06/2009 @ [facility] 2. Cardiomyopathy in other diseases classified elsewhere I43 11/17/17 1420 <Electronically signed by Danica Pickering > Date Danica Pickering 11/18/17 0813<Electronically signed by Noe Morris MD> [facility] Signature: Date (if applicable) Noe Morris MD CC: OPERATIVE REPORT Observed: 11/10/2017 Status: F Source: [place] 11:50 AM [facility] REPOSITORY [facility] Medical Records Department [facility] [place] [address] Operative Report 11/10/17 1148 MR#: [id number] Acct: [id number] Name: IFEOMA ASHRAF Rep #: [id number] : 1965 52 From: Lior Ahmadi MD PCP: Sangeetha Irvin DO Status: [place] [facility] [place] Location: [facility] Operative Report Date of Procedure: 11/10/17 Preoperative diagnosis is device at end of life for normal battery depletion. Postoperative diagnosis same as above. After informed consent and IV antibiotics the patient was brought to the [facility] and the skin over the device was prepped and draped [...] not to injure the pre-existing leads. The lead was removed from the device header and interrogated. There is normal lead function. Hemostasis was obtained. The pocket was flushed with antibiotic solution. The sponge and needle count were correct. The new device was brought to the [...] with Steri-Strips which were covered with a rolled 4 x 4 and Tegaderm. Patient left the room with the device programmed to proper parameters and there were no complications. All lead parameters were tested and found to be functionally normal. Lead and device serial and model numbers are available in the chart documents provided by the device company security systems sales representative procedure summary. 11/10/17 1150 <Electronically signed by Lior Ahmadi MD> Date Lior Ahmadi MD CC: Sangeetha Irvin DO; Lior Ahmadi MD Signed Observed: 11/07/2017 Status: F Source: [place] CULTURE, URINE 11:15 AM [facility] REPOSITORY VERBAL ORDER DR. IRVIN'S OFFICE Urine Culture ORGANISM 1: Mixed Gram Positive Organisms [place] Count 11,000-25,000 MIX CULTURE Mixed contaminants. Submit a new specimen if indicated. Performed By: #### M100.0650 #### [facility] [address] [place], [address] CBC W/DIFF, AUTOMATED Collected: 11/07/2017 Status: F Source: [place] 11:11 AM [facility] REPOSITORY TYPE CODE TESTS RESULT OUT OF RANGE REFERENCE UNITS LAB L100.1000 4.4-11.0 K/mm3 Normal WBC 5.4 LAB L100.1200 4.2-5.4 M/mm3 Low RBC 3.61 LAB L100.1300 12.0-15.0 g/dl Low HGB 11.4 LAB L100.1400 37-47 % Low HCT 36.3 LAB L100.1500 81-99 fL High MCV 100.6 LAB L100.1600 27.0-32.0 pg Normal MCH 31.6 LAB L100.1700 32-36 g/gl Low MCHC 31.4 LAB L100.1810 11.6-14.6 % High RDW CV 14.9 LAB L100.1820 35.1-43.9 fl High RDW SD 54.4 LAB L100.1900 150-450 K/mm3 Normal PLT 333 LAB L100.2000 6.2-12.0 fl Normal MPV 9.2 LAB L100.2100 47-70 % Normal NEUT% 61.5 LAB L100.2200 19-41 % Normal LY% 25.0 LAB L100.2300 0-10 % High MONO% 10.1 LAB L100.2400 0-5 % Normal EO% 2.6 LAB L100.2500 0-1 % Normal BASO% 0.4 LAB L100.2550 0.0-0.9 % Normal IM GRAN % 0.400 Result Comment: IG% - Immature Granulocytes (promyelocytes, myelocytes and metamyelocytes) > 1% indicates that a LEFT SHIFT is Present. LAB L100.2620 2.0-7.7 X10 3/uL Normal Absolute Neut 3.3 LAB L100.2720 0.83-4.51 X10 3/ul Normal Absolute Lymph 1.34 Performed By: #### L100.0100 #### [facility] [place], [address] COMPREHENSIVE METABOLIC Collected: 11/07/2017 Status: F Source: [place] 11:11 AM [facility] REPOSITORY Order Comment: Comments: clean catch TYPE CODE TESTS RESULT OUT OF RANGE REFERENCE UNITS LAB L501.0100 74-106 mg/dL High GLU 143 Result Comment: Fasting Glucose result greater than or equal to 126 mg/dL suggests DIABETES MELLITUS per A.D.A. criteria. Please note revised GLUCOSE reference range effective 2017. LAB L501.1000 7-18 mg/dL Normal BUN 15 LAB L501.1100 0.55-1.02 mg/dL Normal CREAT,SERUM 1.00 Result Comment: The validity of the calculated GFR AND GFRAA in patients over 70 years has not been determined. Clinical correlation is essential. LAB L501.1110 >60 mL/min Normal EST GFR 62 Result Comment: Non- GFR Calc LAB L501.1115 >60 mL/min Normal EST GFR - AA 74 Result Comment: GFR Calc LAB L501.1300 10-20 RATIO Normal BUN/CRE 15.0 LAB L501.1500 6.4-8.2 g/dL T Normal PROT 6.7 LAB L501.1800 3.2-5.0 g/dL Normal ALB 3.6 LAB L501.1950 2.2-4.2 g/dL Normal GLOB 3.1 LAB L501.2000 0.9-2.4 RATIO Normal A/G 1.2 LAB L501.2200 8.5-10.1 mg/dL CA Normal 8.8 LAB L501.4100 15-37 U/L Normal AST 26 LAB L501.4305 45-117 U/L Normal ALK P 110 LAB L501.4405 13-56 U/L Normal ALT 31 Result Comment: Please note revised ALT reference range effective 2017. LAB L501.4600 0.20-1.00 mg/dL Normal T BILI 0.70 LAB L501.5300 136-145 mmol/L Low NA 135 LAB L501.5600 3.5-5.1 mmol/L Normal K 3.9 LAB L501.5900 98-107 mmol/L Normal CL 100 LAB L501.6100 21.0-32.0 mmol/L Normal CO2 28.0 LAB L501.6200 5-15 Normal GAP 7 Performed By: #### L500.4050 #### [facility] [address] [place], [address] URINALYSIS, COMPLETE Collected: 11/07/2017 Status: F Source: [place] 11:10 AM [facility] REPOSITORY Order Comment: ORDERED UAC ORDERED CMP AND CBCD Comments: clean catch Comments: clean catch How was Urine Obtained? [employer] TO SPECIFY TYPE CODE TESTS RESULT OUT OF RANGE REFERENCE UNITS LAB L400.3000 Yellow COLOR Normal Yellow LAB L400.3050 Clear Normal CLARITY Cloudy LAB L400.3200 Normal mg/dl Normal GLUCOSE, UR Normal LAB L400.3300 Negative mg/dL High BILIRUBIN URINE 1 Result Comment: COLOR OF URINE MAY AFFECT DIPSTICK RESULTS. LAB L400.3400 Negative mg/dl Normal KETONE UR Negative LAB L400.3465 1.002-1.030 Normal SP.GR. DIPSTX 1.020 LAB L400.3550 5.0 - 8.0 pH Normal UR 5.0 LAB L400.3600 Negative mg/dl High PROT DIPSTX 30 LAB L400.3700 Normal mg/dl Normal UROBILI Normal LAB L400.3750 Negative Normal NITRITE UR Negative LAB L400.3780 Negative /ul Normal OCCULT Negative BLOOD-UR LAB L400.3800 Negative /ul High LEUK ESTERASE 500 LAB L400.4050 0-5 /hpf Normal WBC 5-10 SEEN LAB L400.4100 0-5 /hpf Normal RBC-UA 0 SEEN LAB L400.4150 5-10 /hpf Normal SQUAM EPI 0-5 SEEN LAB L400.4300 None Seen /hpf Normal BACTERIA RARE LAB L400.4350 <or=2+ /hpf Normal MUCUS, URINE RARE Performed By: #### L400.0001 #### [facility] [address] [place], [address] OFFICE VISIT REPORT Observed: 11/03/2017 Status: F Source: [place] 4:48 PM [facility] REPOSITORY [facility] [address] [place] [address] OFFICE VISIT Date of Service: 11/03/17 MR#: [id number] Acct: [id number] Patient: IFEOMA ASHRAF Rep #: [id number] : 1965 Provider: Danica Pickering Age/Sex: 52/F [place] [facility] [place] Status: Signed Comments Summary Comments: Written and verbal instructions given for ICD generator change with Dr. Ahmadi on 11/10/17. All Questions answered. Pt having labs and CXR done today. Pt states she was to see Dr. Ferreira today and has a bladder infection that is reoccurrent for her and will be treated with antibiotic (Cipro) for 3 day. Device Device Date Interviewed: 11/03/17 Follow-up Location: in office Interview Reason: routine follow up Photographs Curator: [employer] Name: Current VR Model: 1211-36Q ICD Serial #: [id number] Implant Date: 10/10/09 Year(s): 8 Implant Physician: CCBogdan Patient Characteristics Patient Substrate: Nonischemic cardiomyopathy (dilated cardiomyopathy caused from Chemo drugs) Ejection fraction %: 25 to 29 (02/2015) By: Echo Underlying rhythm: Sinus rhythm Pacemaker Dependent: No Device Characteristics Device: Single Chamber Type: Implantable defibrillator Remote Follow-Up: No Leads Lead #1 Photographs Curator Lead 1: [employer] Model Lead 1: 7121Q/58 Serial# Lead 1: [id number] Date Implanted Lead 1: 10/10/09 Position Lead [...] Problems 1. S/P implantation of automatic cardioverter/defibrillator (AICD) Z95.810 10/06/2009 @ [facility] 2. Cardiomyopathy in other diseases classified elsewhere I43 11/03/17 1251 <Electronically signed by Danica Pickering > Date Danica Pickering 11/03/17 1648<Electronically signed by Boone Ch MD> Cosigner Signature: Date (if applicable) Boone Ch MD CC: CARDIOLOGY VISIT Observed: 11/03/2017 Status: F Source: [place] REPORT 1:54 PM [facility] REPOSITORY [facility] [address] [place] [address] OFFICE VISIT Date of Service: 11/03/17 MR#: [id number] Acct: [id number] Name: IFEOMA ASHRAF Rep #: [id number] : 1965 Provider: Boone Ch MD Age/Sex: 52/F [place] [facility] [place] Status: Signed HPI HPI Details: IFEOMA ASHRAF, is a 52 F who presents to the office today for a preoperative visit. She is a lady with a [...] does have some shortness of breath and fatigue with exertion. However this is not long-standing. She does not feel any skipped heartbeats and she has not had any major issues. She is currently being treated for a urinary infection with antibiotics. She has had no neck arm or jaw discomfort suggest angina no dizziness or diaphoresis no near syncope or syncope. Intake Vital Signs11/03/17 Height 5 ft 6 in 11/03/17 Weight: 206 lb 11/03/17 Body Mass Index (BMI) 33.2 11/03/17 Blood Pressure 90/50 Intake Visit Reasons: Update H AND P for generator change Allergies amitriptyline Adverse Reaction (Severe, Verified 11/03/17 11:54) Nightmares naproxen sodium [From Aleve] Adverse Reaction (Severe, Verified 11/03/17 11:54) Swelling Sulfa (Sulfonamide Antibiotics) Adverse Reaction (Intermediate, Verified 11/03/17 11:54) Rash Latex, Natural Rubber Adverse Reaction (Mild, Verified 11/03/17 11:54) Other Medications Furosemide [Lasix] 40 mg PO DAILY 02/28/15 [History Confirmed 10/27/17] Lisinopril [Zestril] 2.5 mg PO DAILY 02/28/15 [History Confirmed 10/27/17] Carvedilol [Coreg (Beta Stephanie)] 3.125 mg PO BID 03/24/15 [History Confirmed 10/27/17] Clonazepam [Klonopin] 1 mg PO QHS 03/24/15 [History Confirmed 10/27/17] Digoxin [Lanoxin] 125 mcg PO DAILY 03/24/15 [History Confirmed 10/27/17] Folic Acid 2 mg PO DAILY@0800 03/24/15 [History Confirmed 10/27/17] Levothyroxine Sodium [Levoxyl] 100 mcg PO SUSA 03/24/15 [History Confirmed 10/27/17] Levothyroxine [Synthroid] 50 mcg PO MOTUWETHFR 03/24/15 [History Confirmed 11/03/17] Lamotrigine [Lamotrigine] 200 mg PO QHS 04/02/15 [History Confirmed 10/27/17] Spironolactone [Spironolactone] 12.5 mg PO DAILY 04/02/15 [History Confirmed 10/27/17] Cholecalciferol (Vitamin D3) [D3-2000] 5,000 unit PO QODAY 06/06/17 [History Confirmed 10/27/17] Melatonin 3 mg Tablet 3 mg PO DAILY 06/06/17 [History Confirmed 10/27/17] Metformin HCl [Glucophage] 500 mg PO BIDCM 06/06/17 [History Confirmed 10/27/17] Senna/Docusate Sodium [Senokot-S] 17.2 mg PO DAILY 06/06/17 [History Confirmed 10/27/17] Venlafaxine HCl [Venlafaxine HCl ER] 150 mg PO DAILY 06/06/17 [History Confirmed 10/27/17] amitriptyline 10 mg tablet 10 mg PO QHS tab 11/03/17 [History Confirmed 11/03/17] gabapentin 100 mg capsule 100 mg PO .COMPLEX 11/03/17 [History Confirmed 10/27/17] gabapentin 400 mg capsule 400 mg PO .COMPLEX cap 11/03/17 [History Confirmed 11/03/17] hydrocodone 5 mg-acetaminophen 325 mg tablet 1 tab PO .COMPLEX PRN tab 11/03/17 [History] potassium chloride ER 20 mEq tablet,extended release(part/cryst) 20 meq PO .COMPLEX 11/03/17 [History Confirmed 10/27/17] simvastatin 10 mg tablet 10 mg PO .COMPLEX 11/03/17 [History Confirmed 10/27/17] Ejection fraction %: 25 to 29 (25% per echo 03/11/2015) [facility] Medical History Type 2 diabetes mellitus without complications (Chronic) Cardiomyopathy in other diseases classified elsewhere (Chronic) Abnormal electrocardiogram (Chronic) Shortness of breath (Chronic) Diffuse large B-cell lymphoma (Chronic) Surgical History S/P implantation of automatic cardioverter/defibrillator (AICD) (Chronic) Family History Father CVA (cerebral vascular accident) Diabetes Hypertension Mother Hypertension Brother Diabetes Hypertension Social History Smoking Status: Never smoker ROS Const Const: Positive for other (Just got over URI and ATB, now on ATB for UTI, will do U/A on Tuesday) and fatigue; negative for body ache, fever(s), chills, night sweats, daytime sleepiness, difficulty sleeping, weight gain, weight loss, increased appetite, poor appetite, anorexia or excessive sweating ENT ENT: Negative for balance problems Cardio Chest Pain: No Palpitations: Positive for Yes (occasional) Palpitations: skipping; negative for No Edema: None Muscle aches with walking: None Resp Respiratory: Positive for SOB with activity and other (dry cough, had a URI); negative for SOB at rest, SOB orthopnea\SOB lying down, Coughing up blood/hemoptysis, chest congestion, pain on inspiration, snoring, stridor, wheezing, crackles or paroxysmal nocturnal dyspnea GI GI: Negative nausea, vomiting, heartburn, constipation, belching, bloating, cramping, vomiting blood/hematemesis, bright, red blood in stools, black,tarry stools, loose stools, Difficulty Swallowing or other : Negative for hematuria, frequent nighttime urination/ nocturia, erectile dysfunction or abnormal vaginal bleeding Musc Musc: Negative for muscle [...] no nasal discharge Face and Sinus: face symmetric Mouth: oral mucosae normal, tongue normal, oropharynx normal and moist mucous membranes Teeth and gingiva: dentition normal Throat: posterior oropharynx normal, tonsils normal and uvula midline Eyes General: appearance [...] No joint tenderness Psych Psychological: normal affect Assessment AND Plan 1. S/P implantation of automatic cardioverter/defibrillator (AICD) Z95.810 10/06/2009 @ [facility] Plan She is status post ICD implantation and there are indications that she has reached elective replacement of indicator. She is therefore being set up for a defibrillator change out next week. A repeat urinalysis will be performed to make sure that her urinary infection has cleared. 2. Cardiomyopathy in other diseases classified elsewhere I43 Plan She does have severe left ventricular systolic dysfunction with an estimated ejection fraction of 25%. This is global. She has been on a beta-stephanie as well as her DIAMOND inhibitor and digoxin. She remembers she was also being followed up at the [facility]. She is also on spironolactone and she has marginal blood pressures which have not [...] to call if any issues arise Plan Detail Follow Up 4 Months (mmm) Coding Level of Care Code Off vis,est,level 4 Diagnoses S/P implantation of automatic cardioverter/defibrillator (AICD) Z95.810 Cardiomyopathy in other diseases classified elsewhere I43 Coding Level of Care Code Off vis,est,level 4 Diagnoses S/P implantation of automatic cardioverter/defibrillator (AICD) Z95.810 Cardiomyopathy in other diseases classified elsewhere I43 11/03/17 1354 <Electronically signed by Boone Ch MD> Date Boone Ch MD Cosigner Signature: Date (if applicable) CC: Sangeetha Fast DO ,SERUM,HCG QUALI. Collected: Status: F Source: [place] 11/03/2017 12:42 PM [facility] REPOSITORY Order Comment: Comments: use blood in lab TYPE CODE TESTS RESULT OUT OF REFERENCE UNITS RANGE LAB L700.7000 0-9 Nonpreg Negative Normal HCGSQUAL NEGATIVE LAB L700.6700 =>Qualitative mIU/mL Normal HCG Qual 2 triggr Performed By: #### L700.6800 #### [facility] [address] [place], [place], [id number] CBC-COMPLETE BLOOD CNT Collected: 11/03/2017 Status: F Source: [place] NO DIFF 12:41 PM [facility] REPOSITORY TYPE CODE TESTS RESULT OUT OF RANGE REFERENCE UNITS LAB L100.1000 4.4-11.0 K/mm3 Normal WBC 8.7 LAB L100.1200 4.2-5.4 M/mm3 Low RBC 3.72 LAB L100.1300 12.0-15.0 g/dl Normal HGB 12.2 LAB L100.1400 37-47 % Normal HCT 37.6 LAB L100.1500 81-99 fL High MCV 101.1 LAB L100.1600 27.0-32.0 pg High MCH 32.8 LAB L100.1700 32-36 g/gl Normal MCHC 32.4 LAB L100.1810 11.6-14.6 % High RDW CV 14.9 LAB L100.1820 35.1-43.9 fl High RDW SD 53.6 LAB L100.1900 150-450 K/mm3 Normal PLT 366 LAB L100.2000 6.2-12.0 fl Normal MPV 9.6 Performed By: #### L100.0500, L300.3900 #### [facility] [address] [place], [address] PROTHROMBIN TIME W/INR Collected: 11/03/2017 Status: F Source: [place] 12:41 PM [facility] REPOSITORY TYPE CODE TESTS RESULT OUT OF RANGE REFERENCE UNITS LAB L300.4150 11.7-14.9 SECONDS Normal PROTIME 12.9 LAB L300.4200 Normal INR 1.0 Performed By: #### L100.0500, L300.3900 #### [facility] [address] [place], [address] BASIC METABOLIC Collected: 11/03/2017 Status: F Source: [place] PROFILE (BMP) 12:41 PM [facility] REPOSITORY TYPE CODE TESTS RESULT OUT OF RANGE REFERENCE UNITS LAB L501.0100 74-106 mg/dL High GLU 112 Result Comment: Fasting Glucose result from 100 to 125 mg/dL suggests IMPAIRED HOMEOSTASIS per A.D.A. criteria. Please note revised GLUCOSE reference range effective 2017. LAB L501.1000 7-18 mg/dL Normal BUN 14 LAB L501.1100 0.55-1.02 mg/dL Normal CREAT,SERUM 0.93 Result Comment: The validity of the calculated GFR AND GFRAA in patients over 70 years has not been determined. Clinical correlation is essential. LAB L501.1110 >60 mL/min Normal EST GFR 67 Result Comment: Non- GFR Calc LAB L501.1115 >60 mL/min Normal EST GFR - AA 81 Result Comment: GFR Calc LAB L501.1300 10-20 RATIO Normal BUN/CRE 15.1 LAB L501.2200 8.5-10.1 mg/dL CA Normal 9.2 LAB L501.5300 136-145 mmol/L NA Normal 139 LAB L501.5600 3.5-5.1 mmol/L K Normal 4.0 LAB L501.5900 98-107 mmol/L CL Normal 101 LAB L501.6100 21.0-32.0 mmol/L Normal CO2 28.0 LAB L501.6200 5-15 Normal GAP 10 Performed By: #### L500.2500 #### [facility] [address] [place], [address] CHEST PA AND LATERAL Observed: 11/03/2017 Status: F Source: [place] 12:29 PM [facility] REPOSITORY [facility] Services [address] [place], [place] [address] Chest PA and Lateral MR#: [id number] Acct: [id number] Name: IFEOMA ASHRAF Rep #: [id number] : 1965 F 52 From: Dimitris Valderrama DO PCP: Sangeetha Irvin DO Status: PRE SDC Study: Chest PA and Lateral Date of Exam: 11/03/17 Exam# [id number] Ordering Dr: Boone Ch MD STUDY: X-RAY CHEST REASON FOR EXAM: Female, 52 years old. ICD generator change. TECHNIQUE: PA and lateral views of the chest. COMPARISON: February 17, 2013. FINDINGS: The lungs are hypoexpanded. No infiltrate or mass. Resolution of mild vascular congestion seen on the prior study. There is no pneumothorax. There is no demonstrated pleural abnormality. The heart remains borderline enlarged. Stable pacemaker/ICD. Normal mediastinum and kari. Normal visualized pulmonary arteries. Normal visualized aortic arch and descending thoracic aorta. No visualized osseous changes. Normal visualized ribs, clavicles, and shoulders. There is no demonstrated abnormality of the visualized soft tissue structures of the upper abdomen. RAD/Chest PA and Lateral IMPRESSION: Stable borderline cardiomegaly with cardiac pacemaker. There is no acute pulmonary disease. Electronically Signed: Dimitris Valderrama DO at 18:21 EST Tel [phone], Service support , CC: Boone Ch MD; Sangeetha Irvin DO Supervisor Laundry: Signed Observed: 11/03/2017 Status: F Source: GERRI CULTURE, URINE 9:00 AM [facility] REPOSITORY Urine Culture ORGANISM 1: Klebsiella pneumoniae sp pneum [place] Count >100,000 Klebsiella pneumoniae sp pneum: REACTION [...] Tobramycin $ <=1 S Trimethoprim/Sulfametho $ <=20 S (NF) indicates non-formulary drug at [facility]. Approval by Infectious Disease Specialist required before non-formulary drugs may be ordered and/or dispensed. Performed By: #### M100.0650 #### [facility] [address] [place], [address] ALLERGIES ALLERGIES DATE TYPE / NAME / CODE REACTION SEVERITY SOURCE CODE 10/03/2018 Drug naproxen Swelling SV Gerri Allergy/41 sodium/[id number](R Community 4631507( [facility]) Repository 10/03/2018 Drug Sulfa (Sulfonamide Rash [place] Gerri Allergy/41 Antibiotics)/C03852 [facility] 6099485( 0491(RXNORM) [facility]) Repository 10/03/2018 Drug Latex, Natural Other [place] Gerri Allergy/41 Rubber/W337736010(R Community 7812725( [facility] OME CT) Repository 10/03/2018 Drug amitriptyline/F0060 NIGHTMARES SV [place] Allergy/41 07504(RXNORM) [facility] 2618440([facility]) Repository 06/12/2012 DRUG/67555 ADHESIVE OTHER: SEE C [facility] 1003(SNOME TAPE-SILICONES Other [place] D CT) Repository 01/05/2011 DRUG [facility]ITRIPTYLINE OTHER: [facility] [place] 9189511(SN Repository OMED CT) 02/24/2007 DRUG LATEX [facility]ASH [facility] [place] 8185358(SN Repository OMED CT) 05/23/2006 DRUG NAPROXEN SODIUM SWELLING [facility] [place] 6831766(SN Repository OMED CT) 05/23/2006 Drug SULFA (SULFONAMIDE RASH [facility] Class/4195 ANTIBIOTICS) Other [place] [address]303(SNOM Repository ED CT) NG/3445644 NAPROXEN SODIUM [facility] 06(SNOMED [facility]) Repository NG/3537159 AMITRIPTYLINE [facility] 06(SNOMED [facility]) Repository NG/0462604 LATEX [facility] 06(DAVI LUXURY BRAND GROUPOMED Health System CT) Repository NG/3227449 SULFA (SULFONAMIDE [facility] 06(SNOMED ANTIBIOTICS) Health System CT) Repository NG/2400075 ADHESIVE [facility] 06(SNOMED TAPE-SILICONES Health System CT) Repository ENCOUNTERS ENCOUNTERS ADMIT/DISCHARGE ACCOUNT NUMBER ADMITTING ENCOUNTER LOCATION SOURCE CLASS 10/10/2018 [id number] Ambulatory [facility] ding:NM Repository 10/03/2018/10/03/19 [id number] Ambulatory BMSBuilding: [place] 19 [facility] Repository 10/03/2018/10/03/19 [id number] Ambulatory BMSBuilding: [place] 19 [facility] Repository 10/02/2018 [id number] Ambulatory [facility] ding:LABSPEC Repository 09/29/2018 5107 Ambulatory Building:[facility] Practices Repository 09/25/2018 [id number] Ambulatory [facility] ding:CT Repository 09/18/2018/09/18/20 [id number] Ambulatory BMSBuilding: [place] 18 [facility] Repository 09/15/2018 [id number] Ambulatory [facility] ding:CT Repository 09/11/2018 [id number] Ambulatory [facility] ding:LAB.FUT Repository URE 09/06/2018 [id number] Ambulatory [facility] ding:CVS Repository 09/06/2018 [id number] Ambulatory BMSBuilding: Gerri [facility] Hospital Repository 09/04/2018 [id number] Ambulatory [facility] ding:CT Repository 09/04/2018 [id number] Ambulatory [facility] ding:LABSPEC Repository 08/29/2018 [id number] Ambulatory [facility] ding:LAB Repository 07/28/2018 [id number] Ambulatory [facility] ding:LAB Repository 07/19/2018 [id number] Ambulatory [facility] ding:LAB Repository 07/17/2018/07/17/20 [id number] Ambulatory BMSBuilding: [place] 18 BMS.[facility] Repository 07/14/2018 [id number] Ambulatory [facility] ding:RAD Repository 07/14/2018/07/14/20 [id number] Ambulatory BMSBuilding: [place] 18 BMS.[facility] Repository 06/09/2018/06/09/20 [id number] Ambulatory BMSBuilding: [place] 18 BMS.[facility] Repository 06/05/2018 [id number] Ambulatory [facility] ding:OMD Repository 06/05/2018 [id number] Ambulatory BMS[facility] 05/31/2018/05/31/20 [id number] Ambulatory BMSBuilding: Gerri 18 BMS.[facility] Repository 05/25/2018 [id number] Ambulatory [facility] ding:CVS Repository 05/05/2018/09/25/[id number] [facility] Ambulatory Naseem [place] 18 [facility] [address] Repository 04/10/2018 [id number] Ambulatory BMSBuilding: Gerri BMS.[facility] Repository 04/07/2018/04/27/20 [id number] [facility] Inpatient [place] 18 , [facility] 04/07/2018/04/27/20 [id number] [facility] Inpatient [facility] 18 , [facility] MEDICAL Repository CENTERBuildi nRoom: 5425Bed: 04/06/2018/04/07/20 [id number] Emergency [place] [address] ding:ED Repository 04/05/2018 [id number] Ambulatory [facility] ding:CT Repository 03/31/2018/03/31/20 [id number] Ambulatory BMSBuilding: [place] 18 BMS.[facility] Repository 03/29/2018 [id number] Ambulatory [facility] ding:MARISEL.WHL Repository TCC 03/24/2018 [id number] Ambulatory [facility] ding:MARISEL.L Repository TCC 03/17/2018 [id number] Ambulatory [facility] ding:OLS.[facility] Repository TCC 03/10/2018 [id number] Ambulatory BMSBuilding: [place] BMS.[facility] Repository 03/10/2018 [id number] Ambulatory BMSBuilding: Gerri BMS.[facility] Repository 03/08/2018 [id number] Ambulatory BMS [facility] Repository 03/08/2018/03/14/20 [id number] Monique Tamez Inpatient [address] ding:PCURoom Repository : PRQ395Itz: 1 03/08/2018 [id number] Monique Tamez Ambulatory BMSBuilding: [place] BMS.[facility] Repository 03/08/2018 [id number] Monique Tamez Ambulatory BMSBuilding: Gerri BMS.[facility] Repository 03/08/2018 [id number] Monique Tamez Ambulatory BMSBuilding: [place] BMS.[facility] Repository 03/08/2018 [id number] Monique Tamez Ambulatory BMSBuilding: Gerri BMS.[facility] Repository 03/08/2018 [id number] Monique Tamez Ambulatory BMSBuilding: [place] BMS.[facility] Repository 03/08/2018 [id number] Monique Tamez Ambulatory BMSBuilding: [place] BMS.[facility] Repository 03/08/2018 [id number] Monique Tamez Ambulatory BMSBuilding: Gerri BMS.[facility] Repository 03/08/2018/03/14/20 [id number] Ambulatory BMSBuilding: Gerri 18 [facility] Repository 03/08/2018/03/14/20 [id number] Ambulatory BMSBuilding: Gerri[address] Repository 03/08/2018/03/14/20 [id number] Ambulatory BMSBuilding: [address] Repository 03/03/2018 [id number] Ambulatory BMSBuilding: [place] BMS.[facility] Repository 03/02/2018 [id number] Ambulatory [facility] ding:LAB.FUT Repository URE 02/23/2018 [id number] Ambulatory [facility] ding:LABSPEC Repository 01/26/2018 [id number] Ambulatory [facility] ding:LAB Repository 12/13/2017 [id number] Ambulatory BMSBuilding: [place] BMS.[facility] Repository 11/28/2017 [id number] Ambulatory BMSBuilding: Gerri BMS.Critical access hospital Repository 11/22/2017 [id number] Ambulatory [facility] ding:LAB Repository 11/22/2017 [id number] Ambulatory [facility] ding:CVS Repository 11/17/2017/11/17/19 [id number] Ambulatory BMSBuilding: [place] 18 BMS.[facility] Repository 11/10/2017 [id number] Ambulatory BMSBuilding: [place] BMS.[facility] Repository 11/10/2017 [id number] Ambulatory [facility] ding:CLSP Repository 11/10/2017 [id number] Ambulatory BMSBuilding: Gerri BMS.[facility] Repository 11/07/2017 [id number] Ambulatory [facility] ding:MTLAB Repository 11/03/2017 [id number] Ambulatory [facility] ding:LABSPEC Repository 11/03/2017/11/03/19 [id number] Ambulatory BMSBuilding: [place] 18 BMS.[facility] Repository 11/03/2017/11/03/19 [id number] Ambulatory BMSBuilding: Gerri 18 BMS.[facility] Repository PAYERS PAYERS ENCOUNTER GUARANTOR PAYER SUBSCRIBER SOURCE 10/10/2018 IFEOMA S Primary IFEOMA S Gerri [id number] Insurance:PRISCILLA SHARP: Community [place] PPOPolicy [id number] Number: Repository [address]Muj: (905) [id number] [phone] () Date:8672-27-81Hs[address] [address]NK: 10/10/2018 Secondary NOT GIVENUNK [place] Insurance:SELF PAY [facility] Number: Effective Repository Date:2018-09-29 10/03/2018 IFEOMA S Primary IFEOMA S [place] [id number] Insurance:HUMANA HOOSIERDOB: Community [place] PPOPolicy [id number], [place] Number: Repository [address]Qnq: 330 [id number] [phone] () Date:3864-31-30Gl [address] [address]GS: 10/03/2018 Secondary NOT GIVENUNK Gerri Insurance:SELF PAY [facility] Number: Effective Repository Date:2018-10-03 10/03/2018 IFEOMA S Primary IFEOMA S [place] [id number] Insurance:HUMANA HOOSIERDOB: Community [place] PPOPolicy [id number], [place] Number: Repository [address]Qds: 330 [id number] [phone] () Date:5694-68-00Jx[address] [address]YT: 10/03/2018 Secondary NOT GIVENUNK [place] Insurance:SELF PAY [facility] Number: Effective Repository Date:2018-09-18 10/02/2018 IFEOMA S Primary IFEOMA S [place] [id number] Insurance:HUMANA HOOSIERDOB: Community [place] PPOPolicy [id number], [place] Number: Repository [address]Fox: 330 [id number] [phone] () Date:7945-82-92Ne [address] [address]HR: 10/02/2018 Secondary NOT GIVENUNK Gerri Insurance:SELF PAY [facility] Number: Effective Repository Date:2018-10-02 09/29/2018 IFEOMA S Primary IFEOMA S OHIP Practices HOOSIERDOB: Insurance:Humana HOOSIERDOB: Repository [id number] [facility] [id number] [place] Number: [address] [place]FA[place], [place] [id number] AdaFAIRFIELD [place], [place] [address]Par: (330) Date:7057-17-53Hckd 469[address]Lle: (HP)Tel: Name:[facility] [address] [place] [address] () [address] [place] [address] () [address]PA: 09/29/2018 Secondary IFEOMA S OHIP Practices Insurance:Medical HOOSIERDOB: Repository [facility] [id number] Number: [address] [id number] DrWellyster, [place] Date:2004-09-26 [address]96[address]Rlq: (157) 9807-71-60Dqjp [phone] (HP) Name:[facility] [address], [place] [address]HF: 09/29/2018 Tertiary IFEOMA S OHIP Practices Insurance:[place] of OSIERDOB: Repository [facility] [id number] Number: [address] [id number] DrWooster, [place] Date: 9244-67-32Ewvv [address]Qra: (330) Name:[facility] Box [id number] () 154[address]JpdxflpzFAIRFIELD [place], [place] [address]FO: 09/29/2018 Tertiary IFEOMA S OHIP Practices Insurance:MedicarePoli HOOSIERDOB: Repository cy Number: [id number] [address] Date: 3551-31-37Prbr Isisstdequ[place], [place] Name:WW [facility] [address] [address]Azx: [phone]) 172610Rxddpanh, [place] [phone] () 254[address]JF: 09/29/2018 Tertiary IFEOMA S OHIP Practices Insurance:Medical HOOSIERDOB: Repository [facility] [id number] AdvPoly Number: [address] [id number] DrWooster, [place] Date:2008-12-25 - [address]Kcv: [phone] 2801-12-39Sifs [phone] (HP) Name:UTILITY SPECIALIST [address], [place] [id number]: 09/29/2018 Tertiary IFEOMA S OHIP Practices Insurance:[employer] Life HOOSIERDOB: Repository Ins/MedicarePolicy [id number] Number: [address] MEBFBJJVEffectWhiting, [place] Date: 5349-40-37Wqpc [address]Gxy: (330) Name:FP [address]Xz [phone] (HP) [facility] [place] [id number]: 09/25/2018 IFEOMA S Primary IFEOMA S [place] [id number] Insurance:HUMANA HOOSIERDOB: Community [place] PPOPolicy [id number], [place] Number: Repository [address]Xki: 330 [id number] [phone] () Date:8437-24-88Bw[address] [address]AW: 09/25/2018 Secondary NOT GIVENUNK [place] Insurance:SELF PAY [facility] Number: Effective Repository Date:2018-09-15 09/18/2018 IFEOMA S Primary IFEOMA S [place] [id number] Insurance:HUMANA HOOSIERDOB: Community [place] PPOPolicy [id number], [place] Number: Repository [address]Brv: (330) [id number] [phone] () Date:7671-38-13Hk[address] [address]FH: 09/18/2018 Secondary NOT GIVENUNK Gerri Insurance:SELF PAY [facility] Number: Effective Repository Date:2018-09-12 09/15/2018 IFEOMA S Primary IFEOMA S Gerri [id number] Insurance:HUMANA HOOSIERDOB: Community [place] PPOPolicy [id number], [place] Number: Repository [address]Ihg: (330 [id number] [phone] (HP) Date:4362-77-75Up [address] [address]JF: 09/15/2018 Secondary NOT GIVENUNK [place] Insurance:SELF PAY [facility] Number: Effective Repository Date:2018-09-12 09/11/2018 IFEOMA S Primary IFEOMA S [place] [id number] Insurance:HUMANA HOOSIERDOB: Community [place] PPOPolicy [id number], [place] Number: Repository [address]Efp: 330 [id number] [phone] (HP) Date:8760-65-42Pb [address] [address]MH: 09/11/2018 Secondary NOT GIVENUNK Gerri Insurance:SELF PAY [facility] Number: Effective Repository Date:2018-09-11 09/06/2018 IFEOMA S Primary IFEOMA S [place] [id number] Insurance:HUMANA HOOSIERDOB: Community [place] PPOPolicy [id number], [place] Number: Repository [address]Hyp: (330 [id number] [phone] () Date:5946-39-17Ru [address] [address]VY: 09/06/2018 Secondary NOT GIVENUNK [place] Insurance:SELF PAY [facility] Number: Effective Repository Date:2018-09-04 09/06/2018 IFEOMA S Primary IFEOMA S Gerri [id number] Insurance:HUMANA HOOSIERDOB: Community [place] PPOPolicy [id number], [place] Number: Repository [address]Gvc: (330 [id number] [phone] (HP) Date:7717-94-52Dh [address] [address]ZU: 09/06/2018 Secondary NOT GIVENUNK Gerri Insurance:SELF PAY [facility] Number: Effective Repository Date:2018-09-06 09/04/2018 IFEOMA S Primary IFEOMA S [place] [id number] Insurance:HUMANA HOOSIERDOB: Community [place] PPOPolicy [id number], [place] Number: Repository [address]Eiw: (330 [id number] [phone] (HP) Date:3418-30-74Xe [address] [address]QD: 09/04/2018 Secondary NOT GIVENUNK [place] Insurance:SELF PAY [facility] Number: Effective Repository Date:2018-09-04 09/04/2018 IFEOMA S Primary IFEOMA S [place] [id number] Insurance:HUMANA HOOSIERDOB: Community [place] PPOPolicy [id number], [place] Number: Repository [address]Riz: 330 [id number] [phone] (HP) Date:0286-64-22Nk [address] [address]CT: 09/04/2018 Secondary NOT GIVENUNK Gerri Insurance:SELF PAY [facility] Number: Effective Repository Date:2018-09-04 08/29/2018 IFEOMA S Primary IFEOMA S [place] [id number] Insurance:HUMANA HOOSIERDOB: Community [place] PPOPolicy [id number], [place] Number: Repository [address]Fyj: (330 [id number] [phone] (HP) Date:2712-54-61Ip [address] [address]EA: 08/29/2018 Secondary NOT GIVENUNK [place] Insurance:SELF PAY [facility] Number: Effective Repository Date:2018-08-29 07/28/2018 IFEOMA S Primary IFEOMA S Gerri [id number] Insurance:HUMANA HOOSIERDOB: Community [place] PPOPolicy [id number], [place] Number: Repository [address]Qbi: (330 [id number] [phone] (HP) Date:3524-61-27Nz [address] [address]ZO: 07/28/2018 Secondary NOT GIVENUNK [place] Insurance:SELF PAY [facility] Number: Effective Repository Date:2018-07-28 07/19/2018 IFEOMA S Primary IFEOMA S Gerri [id number] Insurance:HUMANA HOOSIERDOB: Community [place] PPOPolicy [id number], [place] Number: Repository [address]Qwc: 330 [id number] [phone] () Date:3809-47-66Ny [address] [address]NU: 07/19/2018 Secondary NOT GIVENUNK Gerri Insurance:SELF PAY [facility] Number: Effective Repository Date:2018-07-19 07/17/2018 IFEOMA S Primary IFEOMA S [place] [id number] Insurance:HUMANA HOOSIERDOB: Community [place] PPOPolicy [id number], [place] Number: Repository [address]Pxf: 330 [id number] [phone] () Date:1129-76-23Sa [address] [address]JL: 07/17/2018 Secondary NOT GIVENUNK Gerri Insurance:SELF PAY [facility] Number: Effective Repository Date:2018-07-17 07/14/2018 IFEOMA S Primary IFEOMA S [place] [id number] Insurance:HUMANA HOOSIERDOB: Community [place] PPOPolicy [id number], [place] Number: Repository [address]Jiq: 330 [id number] [phone] () Date:2678-11-15Qm [address] [address]MB: 07/14/2018 Secondary NOT GIVENUNK [place] Insurance:SELF PAY [facility] Number: Effective Repository Date:2018-07-14 07/14/2018 IFEOMA S Primary IFEOMA S Gerri [id number] Insurance:HUMANA HOOSIERDOB: Community [place] PPOPolicy [id number], [place] Number: Repository [address]Rpy: (330 [id number] [phone] (HP) Date:3844-02-89Ex [address] [address]RK: 07/14/2018 Secondary NOT GIVENUNK Gerri Insurance:SELF PAY [facility] Number: Effective Repository Date:2018-07-14 06/09/2018 IFEOMA S Primary IFEOMA S Gerri [id number] Insurance:HUMANA HOOSIERDOB: Community [place] PPOPolicy [id number], [place] Number: Repository [address]Qpt: (330) [id number] [phone] (HP) Date:5116-53-10Dw [address] [address]WG: 06/09/2018 Secondary NOT GIVENUNK [place] Insurance:SELF PAY [facility] Number: Effective Repository Date:2018-06-09 06/05/2018 IFEOMA S Primary IFEOMA S [place] [id number] Insurance:HUMANA HOOSIERDOB: Community [place] PPOPolicy [id number], [place] Number: Repository [address]Wgf: (330 [id number] [phone] (HP) Date:4375-44-68Bk [address] [address]VF: 06/05/2018 Secondary NOT GIVENUNK Gerri Insurance:SELF PAY [facility] Number: Effective Repository Date:2016-12-16 06/05/2018 IFEOMA S Primary IFEOMA S [place] [id number] Insurance:HUMANA HOOSIERDOB: Community [place] PPOPolicy [id number], [place] Number: Repository [address]Dua: (330 [id number] [phone] (HP) Date:8174-78-92Sx [address] [address]DN: 06/05/2018 Secondary NOT GIVENUNK [place] Insurance:SELF PAY [facility] Number: Effective Repository Date:2018-06-05 05/31/2018 IFEOMA Pulido Primary IFEOMA [place] [id number] Insurance:HUMANA HOOSIERDOB: Community [place] PPOPolicy [id number], [place] Number: Repository [address]Gjw: 330 [id number] [phone] () Date:1068-80-25Tc[address] [address]LI: 05/31/2018 Secondary NOT GIVENUNK Gerri Insurance:SELF PAY [facility] Number: Effective Repository Date:2018-05-22 05/25/2018 IFEOMA Pulido Primary IFEOMA [place] [id number] Insurance:HUMANA HOOSIERDOB: Community [place] PPOPolicy [id number], [place] Number: Repository [address]Mvi: 330 [id number] [phone] () Date:8113-05-20Ho[address] [address]ND: 05/25/2018 Secondary NOT GIVENUNK Gerri Insurance:SELF PAY [facility] Number: Effective Repository Date:2018-05-19 05/05/2018 IFEOMA Primary IFEOMA [place] HOOSIERDOB: Insurance:HUMANA HOOSIERDOB: [facility] SR MEDICARE ADVANTAGE [id number] Hospital 83[facility] 80 Repository , [place] [id number]: Number: 83%[facility] [id number] URG, [place] () Date:Plan Name: [id number] 04/10/2018 IFEOMA Pulido Primary IFEOMA [place] Insurance:HUMANA HOOSIERDOB: Community [place]1715 MEDICARE PPOPolicy [id number] Number: Repository [place], [place] [id number] [address]Ceh: (330) Date:2799-89-15Dj [phone] () [address] [place] [address]PE: 04/10/2018 Secondary NOT GIVENUNK [place] Insurance:SELF PAY [facility] Number: Effective Repository Date:2018-04-10 04/07/2018 IFEOMA Primary IFEOMA [facility] HOOSIERDOB: Insurance:HUMANA HOOSIERDOB: [facility] [employer] [id number] [place] Number: ADA [place] [id number] [id number]: Date: () 04/06/2018 IFEOMA S Primary IFEOMA S [place] Insurance:HUMANA HOOSIERDOB: Community [place]1715 MEDICARE PPOPolicy [id number] Number: Repository [place] [id number] [address]Ygj: (330) Date:0814-66-58Xl [phone] () [address] [place] [address]RK: 04/06/2018 Secondary NOT GIVENUNK Gerri Insurance:SELF PAY [facility] Number: Effective Repository Date:2018-04-06 04/05/2018 IFEOMA S Primary IFEOMA S Gerri [id number] Insurance:HUMANA HOOSIERDOB: Community [place] PPOPolicy [id number] [facility] [place] Number: Repository [address]Phq: (330) [id number] [phone] () Date:2526-68-84Jh [address] [place] [address]OI: 04/05/2018 Secondary NOT GIVENUNK [place] Insurance:SELF PAY [facility] Number: Effective Repository Date:2018-04-05 03/31/2018 IFEOMA S Primary IFEOMA S [place] [id number] Insurance:HUMANA HOOSIERDOB: Community [place] PPOPolicy [id number] McKinley Christian Health Care ServicesGERRIwaco, [place] Number: Repository [address]Yol: 330 [id number] [phone] () Date:3965-32-30Fd [address] [place] [address]WB: 03/31/2018 Secondary NOT GIVENUNK Gerri Insurance:SELF PAY [facility]: Effective Repository Date:2018-03-31 03/29/2018 IFEOMA S Primary Insurance:SELF NOT GIVENUNK Gerri [id number] [facility] Number: [place] Date:2018-03-29 Repository 84266Vze: () 03/24/2018 IFEOMA S Primary Insurance:SELF NOT GIVENUNK [place] [id number] [facility] [place] Date:2018-03-24 Repository 67181Csf: () 03/17/2018 IFEOMA S Primary Insurance:SELF NOT GIVENUNK [place] [id number] [facility] [place] [place] Date:2018-03-17 Repository 49651Iqt: () 03/10/2018 IFEOMA S Primary IFEOMA S Gerri [id number] Insurance:HUMANA GOLD HOOSIERDOB: [place] MEDICAREPolicy Number: [id number] [place] [id number] Repository 29668Tjj: 330) Date:3496-95-73MH [phone] () [address] [place] [address]JF: 03/10/2018 Secondary NOT GIVENUNK [place] Insurance:SELF PAY [facility] Number: Effective Repository Date:2018-02-23 03/10/2018 IFEOMA S Primary IFEOMA S [place] [id number] Insurance:HUMANA GOLD HOOSIERDOB: [facility] MEDICAREPolicy Number: [id number] [place] [id number] Repository 24556Wnw: (330) Date:7382-72-76PZ [phone] () [address] [place] [address]ZN: 03/10/2018 Secondary NOT GIVENUNK Gerri Insurance:SELF PAY [facility] Number: Effective Repository Date:2018-02-23 03/08/2018 IFEOMA S Primary IFEOMA S Gerri [id number] Insurance:HUMANA HOOSIERDOB: [place] PPOPolicy [id number] [place] Number[facility] Repository [id number]: (330 [id number] [phone] () Date:6223-96-82Fs [address] [address]DM: 03/08/2018 Secondary NOT GIVENUNK [place] Insurance:SELF PAY [facility] Number: Effective Repository Date:2018-03-08 03/08/2018 IFEOMA S Primary IFEOMA S Gerri [id number] Insurance:HUMANA HOOSIERDOB: [place] PPOPolicy [id number] Number[place] Repository [address]Wrr: 330 [id number] [phone] () Date:0496-01-67Mc [address] [address]WQ: 03/08/2018 Secondary NOT GIVENUNK [place] Insurance:SELF PAY [facility] Number: Effective Repository Date:2018-03-07 03/08/2018 IFEOMA S Primary IFEOMA S Gerri [id number] Insurance:HUMANA HOOSIERDOB: [place] PPOPolicy [id number] Number[place] Repository [phone]: (330 [id number] [phone] () Date:7976-96-83Aq [address] [address]GC: 03/08/2018 Secondary NOT GIVENUNK Gerri Insurance:SELF PAY [facility] Number: Effective Repository Date:2018-03-08 03/08/2018 IFEOMA S Primary IFEOMA S Gerri [id number] Insurance:HUMANA HOOSIERDOB: [place] PPOPolicy [id number] Number: Repository [phone]: (330 [id number] [phone] (HP) Date:1882-17-45Ck [address] [address]NO: 03/08/2018 Secondary NOT GIVENUNK Gerri Insurance:SELF PAY [facility] Number: Effective Repository Date:2018-03-08 03/08/2018 IFEOMA S Primary IFEOMA S Gerri [id number] Insurance:HUMANA HOOSIERDOB: [place] PPOPolicy [id number] Number: Repository 84782Btx: 330 [id number] [phone] (HP) Date:6878-78-57Ea [address] [address]RG: 03/08/2018 Secondary NOT GIVENUNK Gerri Insurance:SELF PAY [facility] Number: Effective Repository Date:2018-03-08 03/08/2018 IFEOMA S Primary IFEOMA S [place] [id number] Insurance:HUMANA HOOSIERDOB: [place] PPOPolicy [id number] Number: Repository [address]Syn: 330 [id number] [phone] (HP) Date:1611-21-77Hl [address] [address]XT: 03/08/2018 Secondary NOT GIVENUNK Gerri Insurance:SELF PAY [facility] Number: Effective Repository Date:2018-03-08 03/08/2018 IFEOMA S Primary IFEOMA S [place] [id number] Insurance:HUMANA HOOSIERDOB: [place] PPOPolicy [id number][place] Number: Repository [address]Yyp: 330 [id number] [phone] (HP) Date:1365-27-75Fe[place] 2895712-46[address]WP: 03/08/2018 Secondary NOT GIVENUNK [place] Insurance:SELF PAY [facility] Number: Effective Repository Date:2018-03-08 03/08/2018 IFEOMA [place] Primary IFEOMA S Gerri [id number] Insurance:HUMANA HOOSIERDOB: [place] PPOPolicy [id number] Number: Repository 84106Gos: 330 [id number] [phone] (HP) Date:5863-04-85Ok [address] [address]PA: 03/08/2018 Secondary NOT GIVENUNK Gerri Insurance:SELF PAY [facility] Number: Effective Repository Date:2018-03-08 03/08/2018 IFEOMA [place] Primary IFEOMA S [place] [id number] Insurance:HUMANA HOOSIERDOB: [place] PPOPolicy [id number] Number: Repository 87[address]Lmm: 330 [id number] [phone] () Date:9192-44-33Zp [address] [address]KS: 03/08/2018 Secondary NOT GIVENUNK Gerri Insurance:SELF PAY [facility] Number: Effective Repository Date:2018-03-08 03/08/2018 IFEOMA [place] Primary IFEOMA S Gerri [id number] Insurance:HUMANA HOOSIERDOB: [place] PPOPolicy [id number] Number: Repository 94297Idq: 330 [id number] [phone] () Date:2457-89-39Vf [address] [address]BS: 03/08/2018 Secondary NOT GIVENUNK [place] Insurance:SELF PAY [facility] Number: Effective Repository Date:2018-03-08 03/08/2018 IFEOMA S Primary [place]EOMA S [place]:HUMANA HOOSIERDOB: Community [place] MEDICARE PPOPolicy [id number] Number: Repository [place] [id number]: (330) Date:6315-97-47Su [phone] () [address] [place] [address]YN: 03/08/2018 Secondary NOT GIVENUNK [place] Insurance:SELF PAY [facility] Number: Effective Repository Date:2018-03-08 03/08/2018 IFEOMA S Primary IFEOMA S [place] Insurance:HUMANA HOOSIERDOB: [place] [address]225 MEDICARE PPOPolicy [id number] [facility] Number: Repository RDGERRI [place] [id number]: (330) Date:6783-24-12Ja [phone] () [address] [place] [address]IT: 03/08/2018 Secondary NOT GIVENUNK [place] Insurance:SELF PAY [facility] Number: Effective Repository Date:2018-03-08 03/03/2018 IFEOMA S Primary IFEOMA S [place] [id number] Insurance:HUMANA GOLD HOOSIERDOB: [place] MEDICAREPolicy Number: [id number], [place] [id number] Repository 35808Axa: (330) Date:6622-96-74PK [phone] () [address] [place] [address]EZ: 03/03/2018 Secondary NOT GIVENUNK [place] Insurance:SELF PAY [facility] Number: Effective Repository Date:2017-11-03 03/02/2018 IFEOMA S Primary IFEOMA S [place] [id number] Insurance:HUMANA HOOSIERDOB: [place] PPOPolicy [id number] Number: Repository 02708Lpz: (330) [id number] [phone] (HP) Date:1591-19-38Oa [address] [place] [address]ZG: 03/02/2018 Secondary NOT GIVENUNK Gerri Insurance:SELF PAY [facility] Number: Effective Repository Date:2018-03-02 02/23/2018 IFEOMA [place] Primary IFEOMA S Gerri [id number] Insurance:HUMANA HOOSIERDOB: [place] PPOPolicy [id number] Number: Repository [address]Inx: 330 [id number] [phone] () Date:2345-74-92Ho [address] [address]KZ: 02/23/2018 Secondary NOT GIVENUNK Gerri Insurance:SELF PAY [facility] Number: Effective Repository Date:2018-02-23 01/26/2018 IFEOMA S Primary IFEOMA S [place] [id number] Insurance:HUMANA HOOSIERDOB: [place] PPOPolicy [id number] Number: Repository [address]Yyk: 330 [id number] [phone] () Date:2101-13-50Yq[address] [address]YD: 01/26/2018 Secondary NOT GIVENUNK Gerri Insurance:SELF PAY [facility] Number: Effective Repository Date:2018-01-26 12/13/2017 IFEOMA [place] Primary IFEOMA S Gerri [id number] Insurance:HUMANA GOLD HOOSIERDOB: [place] MEDICAREPolicy Number: [id number], [place] [id number] Repository [address]Izo: 330) Date:7518-34-71BW [phone] () [address] [place] [address]VY: 12/13/2017 Secondary NOT GIVENUNK [place] Insurance:SELF PAY [facility] Number: Effective Repository Date:2017-09-04 11/28/2017 IFEOMA S Primary IFEOMA S [place] [id number] Insurance:HUMANA HOOSIERDOB: [place] PPOPolicy [id number], [place] Number: Repository 13695Clh: 330 [id number] [phone] () Date:8029-95-15Lc [address] [place] [address]MQ: 11/28/2017 Secondary NOT GIVENUNK [place] Insurance:SELF PAY [facility] Effective Repository Date:2017-11-28 11/22/2017 IFEOMA S Primary IFEOMA S [place] [id number] Insurance:HUMANA GOLD HOOSIERDOB: [facility] MEDICAREPolicy Number: [id number], [place] [id number] Repository 38795Ahv: 330) Date:7233-04-23RH [phone] () [address] [place] [address]VP: 11/22/2017 Secondary NOT GIVENUNK Gerri Insurance:SELF PAY [facility]: Effective Repository Date:2017-11-22 11/22/2017 IFEOMA S Primary Insurance:SELF NOT GIVENUNK Gerri [id number] [facility] [place] [place] Date:2017-10-21 Repository 54836Hnt: () 11/17/2017 IFEOMA S Primary IFEOMA S Gerri [id number] Insurance:HUMANA GOLD HOOSIERDOB: [facility] Number: [id number], [place] [id number] Repository 76850Epl: 330) Date:8861-02-36KG [phone] () [address] [place] [address]HR: 11/17/2017 Secondary NOT GIVENUNK [place] Insurance:SELF PAY [facility] Number: Effective Repository Date:2017-10-12 11/10/2017 IFEOMA S Primary IFEOMA S [place] [id number] Insurance:HUMANA GOLD HOOSIERDOB: [place] MEDICAREPolicy Number: [id number], [place] [id number] Repository [address]1910Pkn: (330) Date:9282-42-69CY [phone] () [address] [place] [address]WL: 11/10/2017 Secondary NOT GIVENUNK Gerri Insurance:SELF PAY [facility] Number: Effective Repository Date:2017-11-10 11/10/2017 IFEOMA [place] Primary IFEOMA S [place] [id number] Insurance:MEDICARE HOOSIERDOB: [facility] PART A BPolicy Number: [id number], [place] [id number] Repository 07999Czq: (330) Date:2017-10-18 [phone] () 11/10/2017 Secondary NOT GIVENUNK [place] Insurance:SELF PAY [facility] Number: Effective Repository Date:2017-10-18 11/10/2017 IFEOMA [place] Primary IFEOMA S [place] [id number] Insurance:HUMANA GOLD HOOSIERDOB: [place] MEDICAREPolicy Number: [id number], [place] [id number] Repository 58290Rfg: (330) Date:3805-61-85BK [phone] () [address] [place] [address]ZP: 11/10/2017 Secondary NOT GIVENUNK Gerri Insurance:SELF PAY [facility] Number: Effective Repository Date:2017-11-10 11/07/2017 IFEOMA S Primary IFEOMA S [place] [id number] Insurance:HUMANA GOLD HOOSIERDOB: [place] MEDICAREPolic Number: [id number], [place] [id number] Repository 81046Ovq: (330) Date:1273-33-12FT [phone] () [address] [place] [address]HB: 11/07/2017 Secondary NOT GIVENUNK [place] Insurance:SELF PAY [facility] Number: Effective Repository Date:2017-11-07 11/03/2017 IFEOMA S Primary IFEOMA S [place] [id number] Insurance:HUMANA GOLD HOOSIERDOB: [facility] MEDICAREPolicy Number: [id number], [place] [id number] Repository 62369Bmo: (330) Date:3771-20-54AT [phone] () [address] [place] [address]TU: 11/03/2017 Secondary NOT GIVENUNK Gerri Insurance:SELF PAY [facility] Number: Effective Repository Date:2017-11-03 11/03/2017 IFEOMA S Primary IFEOMA S Gerri [id number] Insurance:HUMANA SHABANA HOOSIERDOB: [facility] MEDICAREPolicy Number: [id number], [place] [id number] Repository 73[address]Xxg: (330) Date:4389-93-55ZK [phone] () [address] [place] [address]YP: 11/03/2017 Secondary NOT GIVENUNK Gerri Insurance:SELF PAY [facility] Number: Effective Repository Date:2017-10-12 11/03/2017 IFEOMA S Primary IFEOMA S [place] [id number] Insurance:HUMANA SHABANA HOOSIERDOB: [facility] MEDICAREPolicy Number: [id number] [id number] Repository 73793Ykx: (330) Date:3584-70-30XO [phone] () [address] [place] [address]NH: 11/03/2017 Secondary NOT GIVENUNK [place] Insurance:SELF PAY [facility] Number: Effective Repository Date:2017-10-12
== END ==
PROVIDERS: Family Provider Internal Medicine; PCP Internal Medicine; Referring Provider Internal Medicine; Visit Provider Internal Medicine
DX: R06.02 Shortness of breath (principal); R79.1 Abnormal coagulation profile
CPT/HCPCS: 71275; 80053; 82550; 83880; 84484; 85025; 85379; Q9967

== ENCOUNTER → 2018-09-06 09:37 | Outpatient (CLI) | payer MEDICARE, SELFPAY ==
[2018-08-29 12:37] VITALS: BMI 33.2
--- NOTE | 2018-09-06 09:57 | ECHOCS_ITS ---
Reason For Study: SOB Procedure This was a 2D Doppler, Color Flow transthoracic echocardiogram. Contrast injection was performed. Exam performed in department. Left Ventricle Moderately dilated left ventricle. The estimated ejection fraction is 15 %. The global longitudinal strain is severely abnormal. The global longitudinal strain = -2% (abnormal). Stage 3 diastolic dysfunction. There is severe global hypokinesis of the left ventricle. Right Ventricle Normal RV size. ICD or pacer leads identified within the right ventricle. Normal systolic function. Atria The left atrium is moderately enlarged. Normal right atrium. Mitral Valve Normal mitral valve. Moderately severe (3+) mitral valve insufficiency. Tricuspid Valve Normal tricuspid valve. Moderate (2+) tricuspid valve insufficiency. Pulmonary artery systolic pressure is 40 mmHg. Aortic Valve Normal aortic valve. Trisinus/trileaflet aortic valve. Pulmonic Valve Normal pulmonic valve. Great Vessels Normal aortic root. The pulmonary artery is normal size. The inferior vena cava is dilated. Pericardium/Pleural Small pericardial effusion. There are no echocardiographic indications of cardiac tamponade. Medication 22 gauge I.V. with prn adaptor inserted into right arm. Diluted definity 2ml given slow IV push to enhance endocardial definition. MMode/2D Measurements & Calculations LVIDd: 6.1 cm IVSd: 0.65 cm Ao root diam: 3.0 cm LVIDs: 5.7 cm LVPWd: 0.74 cm LA dimension: 4.0 cm FS: 5.9 % LAV(MOD-bp): 73.2 ml LVAd ap4: 46.8 cm2 SV(MOD-sp4): 31.6 ml LAV(MOD-bp) Indexed: 37.2 ml/m2 EDV(MOD-sp4): 211.8 ml LAV(MOD-sp2): 69.5 ml EDV(sp4-el): 223.3 ml LAV(MOD-sp4): 74.8 ml LVAs ap4: 41.4 cm2 ESV(MOD-sp4): 180.2 ml ESV(sp4-el): 187.5 ml EF(MOD-sp4): 14.9 % EF(sp4-el): 16.1 % SV(sp4-el): 35.9 ml LA A4 area: 23.9 cm2 RA A4 area: 17.1 cm2 Time Measurements MV dec time: 0.15 sec Doppler Measurements & Calculations MV E max nadine: 122.5 cm/sec Ao V2 max: 93.2 cm/sec LV V1 max: 63.0 cm/sec MV A max nadine: 38.4 cm/sec Ao max P.5 mmHg LV V1 max P.6 mmHg MV E/A: 3.2 MR max nadine: 455.3 cm/sec PA V2 max: 48.2 cm/sec TR max nadine: 289.4 cm/sec MR max P.9 mmHg TR max P.5 mmHg MR mean nadine: 319.6 cm/sec MR mean P.9 mmHg MR VTI: 125.4 cm Interpretation Summary Moderately dilated left ventricle. The estimated ejection fraction is 15 %. The global longitudinal strain is severely abnormal. Moderately severe (3+) mitral valve insufficiency. Pulmonary artery systolic pressure is 40 mmHg. Small pericardial effusion. There are no echocardiographic indications of cardiac tamponade. Stage 3 diastolic dysfunction. Compared to previous study, the left ventricular systolic function is the same.. Ordering Physician: María Elena Montes De Oca Referring Physician: María Elena Montes De Oca Performed By: Brent Garces RCS
--- OUTSIDE RECORDS SUMMARY | 2018-10-23 08:17 | XMS RPT_ITS ---
:1965 Author Organization OHIP Support Name Relationship Address Phone D Unavailable Unavailable Unavailable HOOSIER, BILL/MORRO Unavailable [address] + [place] [address] SEAN PARVEEN Unavailable [address] + [place] [address] D Unavailable Unavailable Unavailable HOOSIER, BILL/MORRO Unavailable [address] + [place] [address] SEAN PARVEEN Unavailable [address] + [place] [address] D Unavailable Unavailable Unavailable HOOSIER, BILL/MORRO Unavailable [address] + [place] [address] SEAN PARVEEN Unavailable [address] + [place] [address] D Unavailable Unavailable Unavailable HOOSIER, BILL/MORRO Unavailable [address] + [place] [address] SEAN PARVEEN Unavailable [address] + [place] [address] D Unavailable Unavailable Unavailable HOOSIER, BILL/MORRO Unavailable [address] + [place] [address] SEAN PARVEEN Unavailable [address] + [place] [address] D Unavailable Unavailable Unavailable HOOSIER, BILL/MORRO Unavailable [address] + [place] [address] SEAN PARVEEN Unavailable [address] + [place] [address] D Unavailable Unavailable Unavailable HOOSIER, BILL/MORRO Unavailable [address] + [place] [address] HOOSIER, PARVEEN Unavailable [address] + [place] [address] D Unavailable Unavailable Unavailable HOOSIER, BILL/MORRO Unavailable [address] + [place] [address] HOOSIER, PARVEEN Unavailable [address] + [place] [address] D Unavailable Unavailable Unavailable HOOSIER, BILL/MORRO Unavailable [address] + [place] [address] HOOSIER, PARVEEN Unavailable [address] [place] [address] DR + [place] [address] D Unavailable Unavailable Unavailable HOOSIER, BILL/MORRO Unavailable [address] + [place] [address] HOOSIER, PARVEEN Unavailable [address] [place] [address] DR + [place] [address] D Unavailable Unavailable Unavailable HOOSIER, BILL/MORRO Unavailable [address] [place] [address] DR + [place] [address] HOOSIER, PARVEEN Unavailable [address] [place] [address] DR + [place] [address] D Unavailable Unavailable Unavailable HOOSIER, BILL/MORRO Unavailable [facility] + [place] [address] HOOSIER, PARVEEN Unavailable [address] [place] [address] DR + [place] [address] D Unavailable Unavailable Unavailable HOOSIER, BILL/MORRO Unavailable [address] [place] [address] DR + [place] [address] HOOSIER, PARVEEN Unavailable [address] + [place] [address] D Unavailable Unavailable Unavailable HOOSIER, BILL/MORRO Unavailable [address] + [place] [address] HOOSIER, PARVEEN Unavailable [address] [place] [address] DR + [place] [address] D Unavailable Unavailable Unavailable HOOSIER, BILL/MORRO Unavailable [address] + [place] [address] HOOSIER, PARVEEN Unavailable [address] + [place] [address] D Unavailable Unavailable Unavailable HOOSIER, BILL/MORRO Unavailable [...] Hoosier, Bill/Morro Unavailable Unavailable + [place] [address] Hoosier, Parveen Unavailable Unavailable + [place] [address] D Unavailable Unavailable Unavailable Hoosier, Bill/Morro Unavailable Unavailable + [place] [address] Hoosier, Parveen Unavailable Unavailable + [place] [address] D Unavailable Unavailable Unavailable Hoosier, Bill/Morro Unavailable Unavailable + [place] [address] Hoosier, Parveen Unavailable Unavailable + [place] [address] D Unavailable Unavailable Unavailable HOOSIER, BILL/MORRO Unavailable Unavailable + [place] [address] HOOSIER, PARVEEN Unavailable Unavailable + [place] [address] D Unavailable Unavailable Unavailable HOOSIER, BILL/MORRO Unavailable Unavailable + [place] [address] HOOSIER, PARVEEN Unavailable Unavailable + [place] [address] D Unavailable Unavailable Unavailable Hoosier, Bill/Morro Unavailable Unavailable + [place] [address] Hoosier, Parveen Unavailable Unavailable + [place] [address] D Unavailable Unavailable Unavailable Hoosier, Bill/Morro Unavailable Unavailable + [place] [address] Hoosier, Parveen Unavailable Unavailable + [place] [address] D Unavailable Unavailable Unavailable Hoosier, Bill/Morro Unavailable Unavailable + [place] [address] Hoosier, Parveen Unavailable Unavailable + [place] [address] D Unavailable Unavailable Unavailable Hoosier, Bill/Morro Unavailable Unavailable + [place] [address] Hoosier, Parveen Unavailable Unavailable + [place] [address] D Unavailable Unavailable Unavailable HOOSIER, BILL/MORRO Unavailable Unavailable + [place] [address] HOOSIER, PARVEEN Unavailable Unavailable + [place] [address] D Unavailable Unavailable Unavailable HOOSIER, BILL/MORRO Unavailable Unavailable + [place] [address] HOOSIER, PARVEEN Unavailable Unavailable + [place] [address] D Unavailable Unavailable Unavailable HOOSIER, BILL/MORRO Unavailable Unavailable + [place] [address] HOOSIER, PARVEEN Unavailable Unavailable + [place] [address] D Unavailable Unavailable Unavailable HOOSIER, BILL/MORRO Unavailable Unavailable + [place] [address] HOOSIER, PARVEEN Unavailable Unavailable + [place] [address] D Unavailable Unavailable Unavailable Hoosier, Bill/Morro Unavailable Unavailable + [place] [address] Hoosier, Parveen Unavailable Unavailable + [place] [address] D Unavailable Unavailable Unavailable HOOSIER, BILL/MORRO Unavailable Unavailable + [place] [address] HOOSIER, PARVEEN Unavailable Unavailable + [place] [address] D Unavailable Unavailable Unavailable HOOSIER, BILL/MORRO Unavailable Unavailable + [place] [address] HOOSIER, PARVEEN Unavailable Unavailable + [place] [address] D Unavailable Unavailable Unavailable HOOSIER, BILL/MORRO Unavailable Unavailable + [place] [address] HOOSIER, PARVEEN Unavailable Unavailable + [place] [address] D Unavailable Unavailable Unavailable HOOSIER, BILL/MORRO Unavailable Unavailable + [place] [address] HOOSIER, PARVEEN Unavailable Unavailable + [place] [address] D Unavailable Unavailable Unavailable HOOSIER, BILL/MORRO Unavailable Unavailable + [place] [address] HOOSIER, PARVEEN Unavailable Unavailable + [place] [address] D Unavailable Unavailable Unavailable HOOSIER, BILL/MORRO Unavailable Unavailable + [place] [address] HOOSIER, PARVEEN Unavailable Unavailable + [place] [address] D Unavailable Unavailable Unavailable Hoosier, Bill/Morro Unavailable Unavailable + [place] [address] Hoosier, Parveen Unavailable Unavailable + [place] [address] D Unavailable Unavailable Unavailable Hoosier, Bill/Morro Unavailable Unavailable + [place] [address] Hoosier Parveen Unavailable Unavailable + [place] [address] D Unavailable Unavailable Unavailable Hoosier, Bill/Morro Unavailable Unavailable + [place] [address] Hoosier Parveen Unavailable Unavailable + [place] [address] D Unavailable Unavailable Unavailable HOOSIER, BILL/MORRO Unavailable Unavailable + HOOSIER PARVEEN Unavailable Unavailable + D Unavailable Unavailable Unavailable HOOSIER, BILL/MORRO Unavailable Unavailable + [place] [address] HOOSIER PARVEEN Unavailable Unavailable + [place] [address] D Unavailable Unavailable Unavailable HOOSIER, BILL/MORRO Unavailable Unavailable + [place] [address] HOOSIER, PARVEEN Unavailable Unavailable + [place] [address] D Unavailable Unavailable Unavailable HOOSIER, BILL/MORRO Unavailable Unavailable + [place] [address] HOOSIER, PARVEEN Unavailable Unavailable + [place] [address] D Unavailable Unavailable Unavailable HOOSIER, BILL/MORRO Unavailable NA + [place], [place] D Unavailable Unavailable Unavailable HOOSIER, BILL/MORRO Unavailable Unavailable + [place] [address] HOOSIER, PARVEEN Unavailable Unavailable + [place] [address] D Unavailable Unavailable Unavailable HOOSIER, BILL/MORRO Unavailable . + [place] [address] HOOSIER, PARVEEN Unavailable . + [place] [address] D Unavailable Unavailable Unavailable HOOSIER, BILL/MORRO Unavailable . + [place] [address] HOOSIER, PARVEEN Unavailable . + [place] [address] D Unavailable Unavailable Unavailable HOOSIER, BILL/MORRO Unavailable . + [place] [address] PARVEEN ASHRAF Unavailable . + [place] [address] D Unavailable Unavailable Unavailable HOOSIER, BILL/MORRO Unavailable Unavailable + PARVEEN ASHRAF Unavailable Unavailable + D Unavailable Unavailable Unavailable HOOSIER, BILL/MORRO Unavailable Unavailable + PARVEEN ASHRAF Unavailable Unavailable + D Unavailable Unavailable Unavailable HOOSIER, BILL/MORRO Unavailable Unavailable + [place] [address] PARVEEN ASHRAF Unavailable Unavailable + [place] [address] D Unavailable Unavailable Unavailable HOOSIER, BILL/MORRO Unavailable Unavailable + PARVEEN ASHRAF Unavailable Unavailable + D Unavailable Unavailable Unavailable HOOSIER, BILL/MORRO Unavailable Unavailable + PARVEEN ASHRAF Unavailable Unavailable + D Unavailable Unavailable Unavailable HOOSIER, BILL/MORRO Unavailable NA + [place], [place] D Unavailable Unavailable Unavailable HOOSIER, BILL/MORRO Unavailable NA + [place], [place] Care Team Providers Name Role Boone Comer Attending Unavailable Fast, Sangeetha Referring Unavailable Fast, Sangeetha Primary Care Unavailable Fast, Sangeetha Attending Unavailable Fast, Sangeetha Primary Care Unavailable Monique Tamez Admitting Unavailable Paintsil, Wainscott Attending Unavailable Fast, Sangeetha Primary Care Unavailable Patrick Willson Consulting Unavailable Paintsil, Wainscott Consulting Unavailable Danica Pickering Attending Unavailable Fast, Sangeetha Referring Unavailable Patrick Willson Attending Unavailable Dashawn, Monique Referring Unavailable Oscar Chan Attending Unavailable Oscar Chan Referring Unavailable Fast, Sangeetha Primary Care Unavailable Marissa Wakefield Attending Unavailable Fast, Sangeetha Attending Unavailable Fast, Sangeetha Referring Unavailable Fast, Sangeetha Primary Care Unavailable Oscar Todd Attending Unavailable Fast, Sangeetha Referring Unavailable Fast, Sangeetha Attending Unavailable Fast, Sangeetha Referring Unavailable Fast, Sangeetha Primary Care Unavailable Fast, Sangeetha Attending Unavailable Fast, Sangeetha Referring Unavailable Fast, Sangeetha Primary Care Unavailable Oscar Chan Attending Unavailable Oscar Chan Attending Unavailable Jopperi, Monique Admitting Unavailable Sementi, Kitty Attending Unavailable Fast, Sangeetha Primary Care Unavailable Demetris, Patrick Consulting Unavailable Sementi, Kitty Consulting Unavailable Jopperi, Monique Admitting Unavailable Sementi, Kitty Attending Unavailable Fast, Sangeetha Primary Care Unavailable Demetris, Patrick Consulting Unavailable Sementi, Kitty Consulting Unavailable Jopperi, Monique Admitting Unavailable Paintsil, Wainscott Attending Unavailable Fast, Sangeetha Primary Care Unavailable Demetris, Patrick Consulting Unavailable Paintsil, Wainscott Consulting Unavailable Jopperi, Monique Admitting Unavailable Paintsil, Wainscott Attending Unavailable Fast, Sangeetha Primary Care Unavailable Demetris, Patrick Consulting Unavailable Paintsil, [place]ainscott Consulting Unavailable Oscar Todd H Attending Unavailable Fast, Sangeetha Referring Unavailable Jopperi, Monique Admitting Unavailable Paintsil, Wainscott Attending Unavailable Fast, Sangeetha Primary Care Unavailable Demetris, Patrick Consulting Unavailable Paintsil, Wainscott Consulting Unavailable Danica Pickering Attending Unavailable Fast, Sangeetha Referring Unavailable Jopperi, Monique Admitting Unavailable Jopperi, Monique Attending Unavailable Fast, Sangeetha Primary Care Unavailable Paintsil, Wainscott Consulting Unavailable Alcira Ace Attending Unavailable Sementi, Kitty Attending Unavailable Fast, Sangeetha Primary Care Unavailable Jopperi, Monique Admitting Unavailable Demetris, Patrick Consulting Unavailable Jing, Boone Consulting Unavailable Fast, Sangeetha Attending Unavailable Fast, Sangeetha Primary Care Unavailable Jennifer Rios Attending Unavailable Fast, Sangeetha Primary Care Unavailable Fast, Sangeetha Attending Unavailable Fast, Sangeetha Referring Unavailable Fast, Sangeetha Primary Care Unavailable Vellanki, Maya Consulting Unavailable Sole, Zoraida Attending Unavailable Alejandro, Linda Referring Unavailable Fast, Sangeetha Primary Care Unavailable Pragissell, Simeon Consulting Unavailable Prah, Simeon Attending Unavailable Prah, Simeon Referring Unavailable Fast, Sangeetha Primary Care Unavailable Danica Pickering Attending Unavailable Fast, Sangeetha Referring Unavailable Fast, Sangeetha Primary Care Unavailable Oscar Todd H Attending Unavailable Fast, Sangeetha Referring Unavailable Danica Pickering Attending Unavailable Lior Ahmadi Attending Unavailable Jing, Princeton Referring Unavailable Fast, Sangeetha Primary Care Unavailable Jing, Boone Consulting Unavailable Jing, Princeton Attending Unavailable Dev Maya Referring Unavailable Fast, Sangeetha Primary Care Unavailable Linda Bai Attending Unavailable Linda Bai Referring Unavailable Fast, Sangeetha Primary Care Unavailable Jing, Princeton Attending Unavailable Jing, Boone Referring Unavailable Fast, Sangeetha Primary Care Unavailable Jing, Boone Attending Unavailable Fast, Sangeetha Referring Unavailable Danica Pickering Attending Unavailable Fast, Sangeetha Referring Unavailable Fast, Sangeetha Primary Care Unavailable Abe, Red S. Attending Unavailable Abe, Red S. Referring Unavailable Fast, Sangeetha Primary Care Unavailable Fast, Sangeetha Primary Care Unavailable Roof, Oscar H Attending Unavailable Roof, Oscar H Referring Unavailable Fast, Sangeetha Attending Unavailable Fast, Sangeetha Referring Unavailable Fast, Sangeetha Primary Care Unavailable Roof, Oscar H Attending Unavailable Roof, Oscar H Referring Unavailable Fast, Sangeetha Primary Care Unavailable Roof, Oscar H Attending Unavailable Fast, Sangeetha Referring Unavailable Danica Pickering Attending Unavailable Fast, Sanegetha Referring Unavailable Fast, Sangeetha Primary Care Unavailable Simeon Gresham Attending Unavailable Linda Allen Referring Unavailable Fast, Sangeetha Primary Care Unavailable Simeon [place] Consulting Unavailable Roof, Oscar H Attending Unavailable Fast, Sangeetha Referring Unavailable Fast, Sangeetha Primary Care Unavailable Jing, Princeton Attending Unavailable Jing, Princeton Attending Unavailable Dejuan Bacon Attending Unavailable Oscar Chan Primary Care Unavailable Jing, Boone Attending Unavailable Fast, Sangeetha Referring Unavailable Fast, Sangeetha Primary Care Unavailable Oscar Chan Attending Unavailable Mimi Turner Attending Unavailable Fast, Sangeetha Referring Unavailable Fast, Sangeetha Attending Unavailable Fast, Sangeetha Referring Unavailable Fast, Sangeetha Primary Care Unavailable Fast, Sangeetha Attending Unavailable Jing, Boone Attending Unavailable Fast, Sangeetha Referring Unavailable Abe, Red S. Attending Unavailable Abe, Red S. Referring Unavailable Fast, Sangeetha Primary Care Unavailable Mimi Turner Attending Unavailable Fast, Sangeetha Referring Unavailable Fast, Sangeetha Attending Unavailable Fast, Sangeetha Referring Unavailable Fast, Sangeetha Primary Care Unavailable Fast, Sangeetha Attending Unavailable Fast, Sangeetha Primary Care Unavailable Fast, Sangeetha Attending Unavailable Fast, Sangeetha Referring Unavailable Fast, Sangeetha Primary Care Unavailable Jewel Fernandez Consulting Unavailable Simeon Gresham Attending Unavailable Fast, Sangeetha Primary Care Unavailable Linda Allen Referring Unavailable PARIS ALICEA MD Admitting Unavailable LATOUF, PARIS KING Attending Unavailable LATOUPARIS Mcfadden MD Primary Care Unavailable Fast DO, Sangeetha A Attending Unavailable Fast DO, Sangeetha A Referring Unavailable Fast DO, Sangeetha A Consulting Unavailable KESHAWN, AGAPITO Admitting Unavailable LINDA SCALES Attending Unavailable ZARAA, ADEL BRITTNY Consulting Unavailable KESHAWN, AGAPITO Admitting Unavailable Fast, Corrie A. Primary Care Unavailable LINDA SCALES Attending Unavailable KAROL QUINTERO Consulting Unavailable Khayyat, Bebeto F. Consulting Unavailable LEONARD RUEDA Consulting Unavailable LU, NEGRITO Consulting Unavailable ZARAA, ADEL Consulting Unavailable PROBLEMS PROBLEMS DATE TYPE CONDITION / CODE ATTENDING STATUS SOURCE 10/03/2018 Unknown I50.22 - Chronic Turner, Active [facility] systolic (congestive) [facility] heart failure / Hospital I50.22(ICD-10) Repository 10/02/2018 Unknown E87.5 - Hyperkalemia Fast, Sangeetha Active [facility] / E87.5(ICD-10) [facility] Repository 09/18/2018 Unknown R06.09 - Other forms Turner, Active [place] of dyspnea / [facility] R06.09(ICD-10) Hospital Repository 09/18/2018 Unknown I42.8 - Other Turner, Active [facility] cardiomyopathies / [facility] I42.8(ICD-10) Hospital Repository 09/27/2018 Unknown R06.02 - Shortness of Jing, Princeton Active [facility] breath / Community R06.02(ICD-10) Hospital Repository 07/28/2018 Unknown E87.1 - [facility] Oscar Active [place] Hypo-osmolality and Community hyponatremia / Hospital E87.1(ICD-10) Repository 07/19/2018 Unknown E11.9 - Type 2 Fast, Sangeetha Active [place] diabetes mellitus [facility] without complications Hospital / E11.9(ICD-10) Repository 07/19/2018 Unknown E53.8 - Deficiency of Fast, Sangeetha Active [facility] other specified B Community group vitamins / Hospital E53.8(ICD-10) Repository 07/17/2018 Unknown E87.6 - Hypokalemia / Oscar Todd Active [place] E87.6(ICD-10) [facility] Repository 07/14/2018 Unknown D64.9 - Anemia, Oscar Todd Active [facility] unspecified / Community D64.9(ICD-10) Hospital Repository 06/05/2018 Unknown 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 Repository 05/05/2018 Principle Anemia, unspecified / LATOUF, BUTROS Active [facility] Diagnosis D649(ICD-10) [facility] Repository 05/05/2018 Secondary Persons encountering LATOUF, BUTROS Active [facility] [place] Diagnosis health services in [facility] other specified Hospital circumstances / Repository Z7689(ICD-10) 05/05/2018 Secondary Personal history of LATOUF, BUTROS Active [facility] Diagnosis non-Hodgkin lymphomas [facility] / Z8572(ICD-10) Hospital Repository 05/05/2018 Secondary Hypokalemia / LATOUF, BUTROS Active [facility] Diagnosis E876(ICD-10) [facility] Repository 04/27/2018 Active Heart disease, STONE, LINDA Active Person unspecified / [facility] Other I51.9(ICD-10) [facility] Repository 04/27/2018 Active Chronic combined STONE, LINDA Active Person systolic (congestive) [facility] Other and diastolic [facility] (congestive) heart Repository failure / I50.42(ICD-10) 04/27/2018 Active Acidosis / STONE, LINDA Active Person E87.2(ICD-10) [facility] Other [facility] Repository 04/07/2018 Active Traumatic subdural STONE, LINDA Active Person hemorrhage with loss [facility] Other of consciousness of [facility] unspecified duration, Repository initial encounter / S06.5X9A(ICD-10) 04/07/2018 Active Altered mental STONE, LINDA Active Person status, unspecified / [facility] Other R41.82(ICD-10) [facility] Repository 04/27/2018 Admitting Unknown / STONE, LINDA Active [facility] diagnosis UNK(Unknown) [facility] Repository 03/31/2018 Unknown I43 - Cardiomyopathy Jing, Boone Active [facility] in diseases Community classified elsewhere Hospital / I43(ICD-10) Repository 03/31/2018 Unknown Z95.810 - Presence of Jing, Princeton Active [place] automatic Community (implantable) cardiac Hospital defibrillator / Repository Z95.810(ICD-10) 03/31/2018 Unknown I82.622 - Acute Jing, Boone Active [facility] embolism and Community thrombosis of deep Hospital veins of left upper Repository extremity / I82.622(ICD-10) 03/31/2018 Unknown I24.8 - Other forms Jing, Boone Active [facility] of acute ischemic Community heart disease / Hospital I24.8(ICD-10) Repository 03/14/2018 Unknown M79.7 - Fibromyalgia Sementi, Active [place] / M79.7(ICD-10) [facility] Repository 03/20/2018 Unknown E87.2 - Acidosis / Sementi, Active [facility] E87.2(ICD-10) [facility] Repository 01/26/2018 Unknown K76.0 - Fatty (change Fast, Sangeetha Active [facility] of) liver, not Community elsewhere classified Hospital / K76.0(ICD-10) Repository 01/26/2018 Unknown I10 - Essential Fast, Sangeetha Active [facility] (primary) Community hypertension / Hospital I10(ICD-10) Repository PROCEDURES PROCEDURES No Procedure Records FoundRESULTS RESULTS BONE SCAN WHOLE Observed: 10/10/2018 Status: F Source: [place] BODY 10:49 AM [facility] REPOSITORY [facility] Services [address] [place] [address] Bone Scan Whole Body MR#: [id number] Acct: [id number] Name: IFEOMA ASHRAF Rep #: [id number] : 1965 F 53 From: Cristi Gabriel DO PCP: Sangeetha Irvin DO Status: REG CLI Study: Bone Scan Whole Body Date of Exam: 10/10/18 Exam# [id number] Ordering Dr: Sangeetha Irvin DO CLINICAL: 43-year-old [...] Service support , CC: Sangeetha Irvin DO C.O.D. Clerk: Signed CARDIOLOGY VISIT Observed: 10/04/2018 Status: F Source: [place] REPORT 7:24 AM [facility] REPOSITORY [facility] [address] [place] [address]. 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 Ahmadi Plan - LISETTE Sutton ICD is functioning appropriately. Pt has not had any discharges from their device, they will continue with regular scheduled ICD interrogations. Plan Detail Other Medications Discontinued: potassium chloride ER (Klor-Con M) [id number] mEq (2 x 20 mEq) PO DAILY [...] by Mimi KNOX> Date Mimi KNOX 10/04/18 3921<Electronically signed by Boone Ch MD> Cosigner Signature: Date (if applicable) Boone Ch MD CC: Sangeetha Irvin DO PACEMAKER CHECK Observed: 10/04/2018 Status: F Source: [place] 7:24 AM [facility] REPOSITORY [facility] [address] [place], [place] [address] Pacemaker Check Date of Service: 10/03/18 1451 MR#: [id number] Acct: [id number] Name: IFEOMA ASHRAF Rep #: [id number] : 1965 From: Danica Pickering Age/Sex: 53/F [place] [facility] [place]: Signed Billing Codes ICD Device Billing: ICD Dev Prog Eval, Single 10/03/18 1453 <Electronically signed by Danica Pickering > Date Danica Pickering 10/04/18 0724<Electronically signed by Boone Ch MD> Cosigner Signature: Date (if applicable) Boone Ch MD CC: POTASSIUM Collected: 10/02/2018 Status: F Source: [place] 9:25 AM [facility] REPOSITORY Order Comment: CA ADDED 10/02/18 TYPE CODE TESTS RESULT OUT OF RANGE REFERENCE UNITS LAB L501.5600 3.5-5.1 mmol/L Normal K 4.2 Performed By: #### L501.5600 #### [facility] [address] [place], [address] CALCIUM,TOTAL Collected: 10/02/2018 Status: F Source: [place] 9:25 AM [facility] REPOSITORY Order Comment: CA ADDED 10/02/18 TYPE CODE TESTS RESULT OUT OF RANGE REFERENCE UNITS LAB L501.2200 8.5-10.1 mg/dL Normal CA 9.5 Performed By: #### L501.2200 #### [facility] [address] [place], [address] CARDIOLOGY VISIT Observed: 10/02/2018 Status: F Source: [place] REPORT 6:44 AM [facility]POSITORY [facility] 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 Imaging Services [address] [place] [address] Brain/Head without Contrast MR#: [id number] Acct: [id number] Name: IFEOMA ASHRAF Rep #: [id number] : 1965 F 53 From: Isabella Montoya MD PCP: Sangeetha Irvin DO Status: REG CLI Study: Brain/Head without Contrast Date of Exam: 09/25/18 Exam# [id number] Ordering Dr: Red Fish MD STUDY: CT [...] Montoya MD at 0:13 EST Tel Direct: [phone], Service support , CC: Elaine Fish MD; Sangeetha Irvin DO C.O.D. Clerk: Signed SPINE CERVICAL Observed: 09/25/2018 Status: F Source: CARMI WITHOUT CONTRAS 2:00 PM [facility] REPOSITORY [facility] Imaging Services [address] [place] [address] Spine Cervical without Contras MR#: [id number] Acct: [id number] Name: IFEOMA ASHRAF Rep #: [id number] : 1965 F 53 From: Isabella Montoya MD PCP: Sangeetha Irvin DO Status: REG CLI Study: Spine Cervical without Contras Date of Exam: 09/25/18 Exam# [id number] Ordering Dr: Red Fish MD STUDY: CT [...] Montoya MD at 0:17 EST Tel Direct: [phone], Service support , CC: Elaine Fish MD; Sangeetha Irvin DO C.O.D. Clerk: Signed ABDOMEN/PELVIS WITH Observed: 09/15/2018 Status: F Source: CARMI CONTRAST 8:15 AM [facility] REPOSITORY [facility] Imaging Services [address] [place] [address] Abdomen/Pelvis WITH Contrast MR#: [id number] Acct: [id number] Name: IFEOMA ASHRAF Rep #: [id number] : 1965 F 53 From: Madisyn Garrido MD PCP: Sangeetha Irvin DO Status: REG CLI Study: Abdomen/Pelvis WITH Contrast Date of Exam: 09/15/18 Exam# [id number] Ordering Dr: Sangeetha Irvin DO STUDY: CT [...] Service support , CC: Sangeetha Irvin DO C.O.D. Clerk: Signed ECHO, COMPLETE W/ Observed: 09/06/2018 Status: F Source: CARMI CONTRAST 3:35 PM [facility] REPOSITORY [facility] Cardiovascular Services [address] [place] [address] Echo Complete W/ Contrast 09/06/18 1002 MR#: [id number] Acct: [id number] Name: IFEOMA ASHRAF Rep #: [id number] : 1965 53 From: Boone Ch MD Attending Dr: Sangeetha Irvin DO Status: REG CLI Ordering Dr: Sangeetha Irvin DO Date: 09/06/18 Location: [facility] Sex: F C Admitted: Reason For Study: [...] Dictated: 09/06/18 1002 Date Transcribed: 09/06/18 1534 C.O.D. Clerk: Signed CTA CHEST W/WO Observed: 09/04/2018 Status: F Source: CARMI CONTRAST 3:34 PM [facility] REPOSITORY [facility] [place] [address] CTA Chest W/WO Contrast MR#: [id number] Acct: [id number] Name: IFEOMA ASHRAF Rep #: [id number] : 1965 F 53 From: Ziggy Santos MD PCP: Sangeetha Irvin DO Status: REG CLI Study: CTA Chest W/WO Contrast Date of Exam: 09/04/18 Exam# [id number] Ordering Dr: Sangeetha Irvin DO STUDY: CTA [...] Service support , CC: Sangeetha Tavon DAVIS C.O.D. Clerk: Signed CBC W/DIFF, AUTOMATED Collected: 09/04/2018 Status: F Source: CARMI 12:59 PM [facility] REPOSITORY TYPE CODE TESTS RESULT OUT [...] Lymph 1.08 Performed By: #### L100.0100 #### [facility] [address] [place], [address] COMPREHENSIVE METABOLIC Collected: 09/04/2018 Status: F Source: GERRI SOLIS 12:59 PM [facility] REPOSITORY Order Comment: 'TROP' Serial specimen #1, [...] Performed By: #### L500.4050, L501.3620, L501.4010 #### [facility] [address] [place], [address] CPK TOTAL, CREATINE Collected: 09/04/2018 Status: F Source: CARMI KINASE 12:59 PM [facility] REPOSITORY Order Comment: 'TROP' Serial specimen #1, #2, #3, or #4: 1 TYPE CODE TESTS RESULT OUT OF RANGE REFERENCE UNITS LAB L501.3620 26-192 U/L Normal CPK TOTAL 30 Performed By: #### L500.4050, L501.3620, L501.4010 #### [facility] [address] [place], [address] TROPONIN-I Collected: 09/04/2018 Status: F Source: GERRI 12:59 PM [facility] REPOSITORY Order Comment: 'TROP' Serial specimen #1, #2, #3, or #4: 1 TYPE CODE TESTS RESULT OUT OF RANGE REFERENCE UNITS LAB L501.4010 <0.045 ng/mL Normal 0.030 TROPONIN-I Result Comment: TROPONIN-I EXPECTED VALUES <0.045 Negative 0.045 - 0.590 Consistent with Cardiac Damage > OR = 0.600 Critical Value Not every elevated troponin is indicative of UT. These values should be used with clinical judgement in examining the patient's clinical picture for diagnosis. To establish a diagnosis of UT versus myocardial injury, there must be a demonstrated rise and/or fall in the troponin values, in addition to ischemic symptoms, EKG changes, new regional wall motion abnormality, and/or angiographical evidence. PLEASE NOTE: REFERENCE RANGES EDITED 18 Performed By: #### L500.4050, L501.3620, L501.4010 #### [facility] [address] [place], [address] BNP,B-TYPE NATRIURETIC Collected: 09/04/2018 Status: F Source: CARMI PEPTIDE 12:59 PM [facility] REPOSITORY TYPE CODE TESTS RESULT OUT OF RANGE REFERENCE UNITS LAB L503.6620 0-100 pg/mL High B-TYPE 819.3 JACKIE PEP Performed By: #### L503.6620 #### [facility] [address] [place], [address] D-DIMER QUANTITATIVE Collected: 09/04/2018 Status: F Source: GERRI (DVT/PE) 12:59 PM [facility] REPOSITORY TYPE CODE TESTS RESULT OUT OF RANGE REFERENCE UNITS LAB L300.8000 0.27-0.49 FEU/ug/m High alert D-DIMER 1.44 QUANT Result Comment: CRITICAL VALUE VERIFIED. CALLED TO [employer] 09/04/18 1440 Francois Quinn. RESULTS READ BACK BY SAME . D-Dimer ELEVATED (>0.49): Additional studies and clinical assessments are indicated to conclude diagnosis of: Deep Vein Thrombosis (DVT) or Pulmonary Embolism (PE) Performed By: #### L300.8000 #### [facility] [address] [place], [address] HEMOGLOBIN A1C Collected: 08/29/2018 Status: F Source: GERRI 12:44 PM [facility] REPOSITORY TYPE CODE TESTS RESULT OUT OF RANGE REFERENCE UNITS LAB L501.9985 4.2-6.3 % High HGB A1C 10.6 Performed By: #### L501.9985 #### [facility] [address] [place], [address] VITAMIN B12 Collected: 08/29/2018 Status: F Source: GERRI 12:44 PM [facility] REPOSITORY TYPE CODE TESTS RESULT OUT OF REFERENCE UNITS RANGE LAB L503.0105 211-911 pg/mL High Vitamin B12 1303 Performed By: #### L503.0105, L506.1000 #### [facility] [address] [place], [address] VITAMIN D,25 HYDROXY Collected: 08/29/2018 Status: F Source: GERRI 12:44 PM [facility] REPOSITORY TYPE CODE TESTS RESULT OUT OF RANGE REFERENCE UNITS LAB L506.1000 29.95-100.01 ng/mL Normal Vitamin D 62.4 25-OH Result Comment: Vitamin D 25(OH) Status Range Deficiency <20 ng/mL (50nmol/L) Insuffciency 20 - 30 ng/mL (50 - 75 nmol/L) Sufficiency 30 - 100 ng/mL (75 - 250 nmol/L) Toxicity >100 ng/mL (>250 nmol/L) Performed By: #### L503.0105, L506.1000 #### [facility] [address] [place], [place], [address] CPK TOTAL, CREATINE Collected: 08/29/2018 Status: F Source: GERRI KINASE 12:44 PM [facility] REPOSITORY TYPE CODE TESTS RESULT OUT OF RANGE REFERENCE UNITS LAB L501.3620 26-192 U/L Normal CPK TOTAL 33 Performed By: #### L501.3620, L501.9520, L505.7010 #### [facility] [address] [place], [address] THYROID STIM HORMONE Collected: 08/29/2018 Status: F Source: GERRI (TSH) 12:44 PM [facility] REPOSITORY TYPE CODE TESTS RESULT OUT OF RANGE REFERENCE UNITS LAB L501.9520 0.358-3.74 uIU/mL Normal TSH 2.71 Performed By: #### L501.3620, L501.9520, L505.7010 #### [facility] [address] [place], [address] RHEUMATOID FACTOR Collected: 08/29/2018 Status: F Source: GERRI 12:44 PM [facility] REPOSITORY TYPE CODE TESTS RESULT OUT OF RANGE REFERENCE UNITS LAB L505.7010 <15 IU/mL Normal RHEUMATOID FAC < 10.0 Performed By: #### L501.3620, L501.9520, L505.7010 #### [facility] [address] [place], [address] ANTINUCLEAR ANTIBODIES Collected: 08/29/2018 Status: F Source: GERRI DIRECT 12:44 PM [facility] REPOSITORY TYPE CODE TESTS RESULT OUT OF RANGE REFERENCE UNITS LAB L3100.5475 Negative Normal Negative LASHA-DIRECT Result Comment: Performed at: [address] [id number] Wafer [employer] Operator: Omar Hood PhD, Phone: [phone] Performed By: #### L3100.5475, L3100.9100 #### [facility] (refer to report for specific site) refer to report for address and phone number SJOGREN'S ANTIBODIES Collected: 08/29/2018 Status: F Source: GERRI A/B 12:44 PM [facility] REPOSITORY TYPE CODE TESTS RESULT OUT OF RANGE REFERENCE UNITS LAB L3100.9200 0.0-0.9 AI Normal Anti-SS-A < 0.2 LAB L3100.9300 0.0-0.9 AI Normal Anti-SS-B < 0.2 Performed By: #### L3100.5475, L3100.9100 #### [facility] (refer to report for specific site) refer to report for address and phone number PRANEETH + PROTEIN ELECT, Collected: 08/29/2018 Status: F Source: GERRI SERUM 12:44 PM [facility] REPOSITORY Order Comment: Is Patient Fasting? N TYPE CODE TESTS RESULT OUT OF RANGE REFERENCE UNITS LAB L3100.3500 6.0-8.5 g/dL Normal PROTEIN,TOTAL 6.3 LAB L3200.7221 415-8741 mg/dL Low IMMUNO G 538 LAB L3200.1400 87-352 mg/dL Low IMMUNO A 69 LAB L3200.1500 26-217 mg/dL Normal IMMUNOGL M 103 LAB L3200.1510 2.9-4.4 g/dL Normal ALBUMIN 3.4 LAB L3200.1520 0.0-0.4 g/dL Normal DBIWX-7-PYUS 0.3 LAB L3200.1530 0.4-1.0 g/dL Normal ABOUN-7-SZRN 0.9 LAB L3200.1540 0.7-1.3 g/dL Normal BETA [...] scan will follow via computer, mail, or grade checker delivery. Performed By: #### L3100.3425, L3300.1200, L3600.4025 #### [facility] (refer to report for specific site) refer to report for address and phone number ANCA Collected: 08/29/2018 Status: F Source: GERRI 12:44 PM [facility] REPOSITORY Order Comment: Is Patient Fasting? N [...] up testing of positive sera with both NM- 3 and MPO-ANCA enzyme immunoassays. As many as 5% serum samples are positive only by EIA. Ref. AM J Clin Pathol 1999;111:507-513. LAB L3300.1285 Neg:<1:20 titer Normal Atypical pANCA <1:20 Result Comment: The atypical pANCA pattern has been observed in a significant percentage of patients with ulcerative colitis, primary sclerosing cholangitis and autoimmune hepatitis. Performed at: [address] [id number] [employer] Operator: Omar Hood PhD, Phone: [phone] Performed By: #### L3100.3425, L3300.1200, L3600.4025 #### [facility] (refer to report for specific site) refer to report for address and phone number PRANEETH AND PE, Collected: 08/29/2018 Status: F Source: GERRI RANDOM UR 12:44 PM [facility] REPOSITORY Order Comment: Is Patient Fasting? N [...] scan will follow via computer, mail, or grade checker delivery. Performed By: #### L3100.3425, L3300.1200, L3600.4025 #### [facility] (refer to report for specific site) refer to report for address and phone number BASIC METABOLIC Collected: 07/28/2018 Status: F Source: GERRI PROFILE (BMP) 11:06 AM [facility] REPOSITORY Order Comment: PLEASE FAX TO DR. IRVIN. [phone] TYPE CODE TESTS RESULT OUT OF RANGE [...] GAP 12 Performed By: #### L500.2500 #### [facility] [place], [address] CBC W/DIFF, AUTOMATED Collected: 07/19/2018 Status: F Source: GERRI 9:22 AM [facility] REPOSITORY Order Comment: BMP TO DULCE TODD [...] Lymph 1.16 Performed By: #### L100.0100 #### [facility] [address] [place], [address] VITAMIN B12 Collected: 07/19/2018 Status: F Source: GERRI 9:22 AM [facility] REPOSITORY Order Comment: BMP TO DULCE TODD [facility]. CBCD, TSH, B12 TO DR. SANGEETHA IRVIN. TYPE CODE TESTS RESULT OUT OF RANGE REFERENCE UNITS LAB L503.0105 211-911 pg/mL Normal Vitamin B12 659 Performed By: #### L503.0105 #### [facility] [address] [place], [address] BASIC METABOLIC Collected: 07/19/2018 Status: F Source: GERRI PROFILE (BMP) 9:20 AM [facility] REPOSITORY Order Comment: BMP TO DULCE TODD [facility]. CBCD, TSH, B12 TO DR. SANGEETHA IRVIN. [...] 9 Performed By: #### L500.2500, L501.9520 #### [facility] [address] [place], [address] THYROID STIM HORMONE Collected: 07/19/2018 Status: F Source: GERRI (TSH) 9:20 AM [facility] REPOSITORY Order Comment: BMP TO DULCE TODD [facility]. CBCD, TSH, B12 TO DR. SANGEETHA IRVIN. TYPE CODE TESTS RESULT OUT OF RANGE REFERENCE UNITS LAB L501.9520 0.358-3.74 uIU/mL High TSH 4.09 Performed By: #### L500.2500, L501.9520 #### [facility] [address] [place], [place], [address] CBC W/DIFF, AUTOMATED Collected: 07/14/2018 Status: F Source: GERRI 3:23 PM [facility] REPOSITORY TYPE CODE TESTS RESULT OUT [...] Lymph 1.23 Performed By: #### L100.0100 #### [facility] [address] [place], [place], [address] BASIC METABOLIC Collected: 07/14/2018 Status: F Source: CARMI PROFILE ([facility]) 3:23 PM [facility] REPOSITORY TYPE CODE TESTS RESULT OUT [...] 7 Performed By: #### L500.2500, L503.6620 #### [facility] [address] [place], [address] BNP,B-TYPE NATRIURETIC Collected: 07/14/2018 Status: F Source: GERRI PEPTIDE 3:23 PM [facility] REPOSITORY TYPE CODE TESTS RESULT OUT OF RANGE REFERENCE UNITS LAB L503.6620 0-100 pg/mL High B-TYPE 892.7 JACKIE PEP Performed By: #### L500.2500, L503.6620 #### [facility] [address] [place], [address] CHEST PA AND LATERAL Observed: 07/14/2018 Status: F Source: GERRI 3:11 PM [facility] Imaging Services [address] [place] [address] Chest PA and Lateral MR#: [id number] Acct: [id number] Name: IFEOMA ASHRAF Rep #: [id number] : 1965 F 53 From: Dimitris Valderrama DO PCP: Sangeetha Irvin DO Status: REG CLI Study: Chest PA and Lateral Date of Exam: 07/14/18 Exam# [id number] Ordering Dr: Oscar Todd SOCIAL MEDIA DESIGNER-C STUDY: X-RAY CHEST REASON FOR EXAM: Female, [...] Signed: Dimitris CrawfordonDO at 8:47 EDT Tel [phone], Service support , CC: NUNU Todd; Sangeetha Irvin DO C.O.D. Clerk: Signed PACEMAKER CHECK Observed: 06/10/2018 Status: F Source: GERRI 2:06 PM [facility] REPOSITORY [facility] [address] [place], [place] [address] Pacemaker Check Date of Service: 06/09/18 0909 MR#: [id number] Acct: [id number] Name: IFEOMA ASHRAF Rep #: [id number] : 1965 From: Danica Pickering Age/Sex: 53/F Location: [facility] Status: Signed Billing Codes ICD Device Billing: ICD Dev Prog Eval, Single 06/09/18 0913 <Electronically signed by Danica Pickering > Date Danica Pickering 06/10/18 1406<Electronically signed by Boone Ch MD> Cosigner Signature: Date (if applicable) Boone Ch MD CC: CARDIOLOGY VISIT Observed: 06/08/2018 Status: F Source: GERRI REPORT 10:36 AM [facility] REPOSITORY [facility] [address] [place], [place] [address] OFFICE VISIT Date of Service: 05/31/18 MR#: [id number] Acct: [id number] Name: IFEOMA ASHRAF Rep #: [id number] : 1965 Provider: NUNU Todd Age/Sex: 53/F Location: [facility] Status: Signed with Addenda ADDENDUM by [...] ultimately discharged home with requested follow-up with [facility] neurology or local neurologist in approximately 6 [...] cardioverter-defibrillator (ICD) Z95.810 Generator change 11/13 @ [facility] [...] prior to saving. Follow Up 6 Months (HAMMER REPAIRER) 05/31/18 (GIUSEPPE) 06/01/18 0747 <Electronically signed [...] mitral regurgitation and tricuspid regurgitation. She presented [facility] on March 08, 2018 after being found unresponsive in her bathroom. During this hospitalization she was found to have an acute left axillary and left brachial vein DVT and was started on Eliquis. She presented to [facility] emergency department in March 2018 for [...] Intake Visit Reasons: WC to [facility] to [facility] to [place] Allergies amitriptyline Adverse Reaction (Severe, Verified 05/31/18 [...] cardioverter-defibrillator (ICD) Z95.810 Generator change 11/13 @ [facility] [...] prior to saving. Follow Up 6 Months (HAMMER REPAIRER) 05/31/18 (GIUSEPPE) Coding Level of Care [...] 06/05/2018 Status: F Source: GERRI 1:25 PM [facility] REPOSITORY [facility] [place] [address] OFFICE VISIT Date of Service: 06/05/18 1314 MR#: [id number] Acct: [id number] Name: IFEOMA ASHRAF Rep #: [id number] : 1965 From: Simeon Gresham MD Age/Sex: 53/F Location: [facility] Status: Signed Subjective - Date of Service Date of Service:: 06/05/18 - Chief Complaint Follow up DLBCL - History of Present Illness 53-year-old woman was diagnosed with non-Hodgkin's lymphoma, diffuse large B cell, stage IV of the uterine cervix with 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 She had [...] transplant in February 2007 at [facility] with complete remission. She is [...] Chronic Code Visit Office Visits / Consults: 50656 OV L3 Est 06/05/18 1325 <Electronically signed by Simeon Gresham MD> Date Simeon Pacheco Signature: Date (if applicable) CC: COMPREHENSIVE METABOLIC Collected: 06/05/2018 Status: F Source: GERRI SOLIS 12:41 PM [facility] REPOSITORY Order Comment: Reason for Laboratory Test [...] Performed By: #### L500.4050, L504.2610, L100.0100 #### [facility] [address] [place], [place], [address] LDH Collected: 06/05/2018 Status: F Source: CARMI 12:41 PM [facility] REPOSITORY Order Comment: Reason for Laboratory Test . Serial Specimen #1, #2 or #3? 1 TYPE CODE TESTS RESULT OUT OF RANGE REFERENCE UNITS LAB L504.2610 84-246 U/L Normal LDH 224 Performed By: #### L500.4050, L504.2610, L100.0100 #### [facility] [address] [place], [place], [address] CBC W/DIFF, AUTOMATED Collected: 06/05/2018 Status: F Source: CARMI 12:41 PM [facility] REPOSITORY Order Comment: Reason for Laboratory Test [...] Performed By: #### L500.4050, L504.2610, L100.0100 #### [facility] [address] [place], [address] VENOUS DUPLEX UPPER Observed: 05/26/2018 Status: F Source: CARMI EXTREMITY 4:36 PM [facility] REPOSITORY [facility] Cardiovascular Services [address] [place] [address] Venous Duplex US, Unilateral 05/25/18 0903 MR#: [id number] Acct: [id number] Name: IFEOMA ASHRAF Rep #: [id number] : 1965 53 From: Juanjo Russo MD [...] Date Dictated: 05/25/1803 Date Transcribed: 05/26/18 1635 C.O.D. Clerk: Signed CBC W/DIFF, AUTOMATED Collected: 05/25/2018 Status: F Source: GERRI 9:46 AM [facility] REPOSITORY TYPE CODE TESTS RESULT OUT [...] Lymph 0.95 Performed By: #### L100.0100 #### [facility] [address] [place], [address] URINALYSIS, COMPLETE Collected: 05/25/2018 Status: F Source: CARMI 9:46 AM [facility] REPOSITORY Order Comment: How was Urine Obtained? [...] 0 SEEN Performed By: #### L400.0001 #### [facility] [address] [place], [address] MICROALB:CREAT Collected: 05/25/2018 Status: F Source: [facility] UR 9:46 AM [facility] REPOSITORY TYPE CODE TESTS RESULT OUT OF RANGE REFERENCE UNITS LAB L501.1200 NO RANGE EST. mg/dL Normal UR CREAT 139.00 LAB L502.0500 NO RANGE EST. mg/L Normal 10.9 MICROALBUMIN ,UR LAB L502.0600 <30 mg/g CRE mg/g CRE Normal 7.8 MALB:CREAT Performed By: #### L502.0250 #### [facility] [address] [place], [address] HEMOGLOBIN A1C Collected: 05/25/2018 Status: F Source: CARMI 9:46 AM [facility] REPOSITORY TYPE CODE TESTS RESULT OUT OF RANGE REFERENCE UNITS LAB L501.9985 4.2-6.3 % Normal HGB A1C 5.4 Performed By: #### L501.9985 #### [facility] [address] [facility] [place], [address] COMPREHENSIVE METABOLIC Collected: 05/25/2018 Status: F Source: CARMI PROFIL 9:46 AM [facility] REPOSITORY Order Comment: PLEASE ADD T3F T4F [...] 9 Performed By: #### L500.4050, L500.4100, L501.9520, L501.90469, L506.0400 #### [facility] [address] [place], [address] LIPID PROFILE Collected: 05/25/2018 Status: F Source: GERRI 9:46 AM [facility] REPOSITORY Order Comment: PLEASE ADD T3F T4F [...] 22 Performed By: #### L500.4050, L500.4100, L501.9520, L501.20171, L506.0400 #### [facility] [address] [place], [place], [address] THYROID STIM HORMONE Collected: 05/25/2018 Status: F Source: CARMI (TSH) 9:46 AM [facility] REPOSITORY Order Comment: PLEASE ADD T3F T4F TO BLOOD FROM 05-25-18 [facility] 5 B TYPE CODE TESTS RESULT OUT OF RANGE REFERENCE UNITS LAB L501.9520 0.358-3.74 uIU/mL Low TSH 0.31 Performed By: #### L500.4050, L500.4100, L501.9520, L501.15306, L506.0400 #### [facility] [address] [place], [address] FREE T3 Collected: 05/25/2018 Status: F Source: GERRI 9:46 AM [facility] REPOSITORY Order Comment: PLEASE ADD T3F T4F TO BLOOD FROM 05-25-18 [facility] 5 B TYPE CODE TESTS RESULT OUT OF RANGE REFERENCE UNITS LAB L501.30448 2.18-3.98 pg/mL Normal FREE T3 3.2 Performed By: #### L500.4050, L500.4100, L501.9520, L501.99043, L506.0400 #### [facility] [address] [place], [address] T4 FREE DIRECT Collected: 05/25/2018 Status: F Source: CARMI 9:46 AM [facility] REPOSITORY Order Comment: PLEASE ADD T3F T4F TO BLOOD FROM 05-25- [facility] 5 B TYPE CODE TESTS RESULT OUT OF RANGE REFERENCE UNITS LAB L506.0400 0.76-1.46 ng/dL Normal T4 FREE 1.11 DIRECT Performed By: #### L500.4050, L500.4100, L501.9520, L501.82019, L506.0400 #### [facility] [address] [place], [address] DIGOXIN LEVEL Collected: 05/25/2018 Status: F Source: CARMI 9:46 AM [facility] REPOSITORY TYPE CODE TESTS RESULT OUT OF RANGE REFERENCE UNITS LAB L501.7510 0.80-2.00 ng/mL Low DIG 0.71 Performed By: #### L501.7510 #### [facility] [address] [place], [address] VITAMIN B12 Collected: 05/25/2018 Status: F Source: CARMI 9:46 AM [facility] REPOSITORY TYPE CODE TESTS RESULT OUT OF RANGE REFERENCE UNITS LAB L503.0105 211-911 pg/mL Normal Vitamin B12 368 Performed By: #### L503.0105, L506.1000 #### [facility] [address] [place], [address] VITAMIN D,25 HYDROXY Collected: 05/25/2018 Status: F Source: CARMI 9:46 AM [facility] REPOSITORY TYPE CODE TESTS RESULT OUT OF RANGE REFERENCE UNITS LAB L506.1000 29.95-100.01 ng/mL Normal Vitamin D 64.5 25-OH Result Comment: Vitamin D 25(OH) Status Range Deficiency <20 ng/mL (50nmol/L) Insuffciency 20 - 30 ng/mL (50 - 75 nmol/L) Sufficiency 30 - 100 ng/mL (75 - 250 nmol/L) Toxicity >100 ng/mL (>250 nmol/L) Performed By: #### L503.0105, L506.1000 #### [facility] [address] [place], [address] AFP, TUMOR MARKER Collected: 05/25/2018 Status: F Source: [place] 9:46 AM [facility] REPOSITORY Order Comment: Is Patient ? N TYPE CODE TESTS RESULT OUT OF RANGE REFERENCE UNITS LAB L3300.0700 0.0-8.3 ng/mL High AFP TUMOR 10.0 2253 Result Comment: Personeta ECLIA methodology Performed at: - [facility] [id number] Wafer Fab Operator: Omar Hood PhD, Phone: [phone] Performed By: #### L3300.0700 #### [facility] (refer to report for specific site) refer to report for address and phone number RETICULOCYTE COUNT Collected: 05/09/2018 Status: F Source: [facility] 4:44 AM [facility] REPOSITORY TYPE CODE TESTS RESULT OUT OF REFERENCE UNITS RANGE LAB RETIC 0.0 - 2.3 % COUNT(LOINC) RETIC 1.2 COUNT LAB IRF(LOINC) 0.20 - 0.46 IRF High IRF 0.54 Performed By: #### [id number] #### [facility],[address] [place] [address] IRON AND UIBC Collected: 05/09/2018 Status: F Source: [facility] 4:44 AM [facility] REPOSITORY TYPE CODE TESTS RESULT OUT OF RANGE REFERENCE UNITS LAB IRON(LOINC) 50 - 170 ug/dl IRON 66 LAB UIBC(LOINC) 155 - 355 ug/dL UIBC 173 LAB TIBC(LOINC) 250 - 450 ug/dl Low TIBC 239 LAB Sat%(LOINC) 20 - 50 % Sat% 28 Performed By: #### [id number] #### [facility],[address] [place] [address] FERRITIN Collected: 05/09/2018 Status: F Source: [facility] 4:44 [facility] REPOSITORY TYPE CODE TESTS RESULT OUT OF REFERENCE UNITS RANGE LAB FERRITIN(LO 10 - 291 ng/mL INC) FERRITIN 122 Performed By: #### [id number] #### [address] [address] FOLATES Collected: 05/09/2018 Status: F Source: [facility] 4:44 [facility] REPOSITORY TYPE CODE TESTS RESULT OUT OF REFERENCE UNITS RANGE LAB FOLATES(BRENNA 3.5 - 20.0 ng/ml NC) High FOLATES >24.0 Performed By: #### [id number] #### [place] [id number] VITAMIN B-12 Collected: 05/09/2018 Status: F Source: [facility] 4:44 [facility] TYPE CODE TESTS RESULT OUT OF REFERENCE UNITS RANGE LAB N(LOINC) 180 - 914 pg/mL VITAMIN B12 510 Performed By: #### [id number] #### [address] [address] POTASSIUM Collected: 05/08/2018 Status: F Source: [facility] 5:11 [facility] REPOSITORY TYPE CODE TESTS RESULT OUT OF REFERENCE UNITS RANGE LAB POTASSIUM( 3.5 - 5.1 mmol/L LOINC) POTASSIUM 4.4 Performed By: #### [id number] #### [address] [address] CBC (NO DIFF) Collected: 05/05/2018 Status: F Source: [facility] 4:05 [facility] REPOSITORY TYPE CODE TESTS RESULT OUT [...] 7.8 Result Comment: {CB] Performed By: #### [id number] #### [facility],[address] [place] [address] CMP WITH EGFR Collected: 05/05/2018 Status: F Source: [facility] 4:05 AM [facility] REPOSITORY TYPE CODE TESTS RESULT OUT OF RANGE REFERENCE UNITS LAB CMP with eGFR(LOINC) CMP with eGFR Result Comment: COMPREHENSIVE METABOLIC PANEL LAB SODIUM(LOINC) 136 - 145 mmol/l SODIUM 143 LAB POTASSIUM(LOINC) 3.5 - 5.1 mmol/L Low Alert POTASSIUM 2.7 Result Comment: { CALLED TO braulio/0927 { READ BACK BY hs3014/k/lm LAB CHLORIDE(LOINC) 98 - 107 mmol/L CHLORIDE [...] OF AGE AND OLDER. Performed By: #### [id number] #### [facility],[address] [place] [address] NURSING PROG Observed: 04/27/2018 Status: COMPLETED Source: [place] 12:51 PM [facility] REPOSITORY HNO ID: [id number] Author: Tana MckeonRn) NAHUM Yung Service: Nursing Author Type: Registered Nurse Type: Nursing Progress Note Filed: 04/27/2018 12:54 PM Note Text: Nursing Progress Note Patient Name: Ifeoma Ashraf Patient Location: [place] [address] [address]* Daily Note:attempted to call report to [facility] . No answer. LM for them to return call to 5400 for report process. Await call. Pt ready for ambulance transport at 1300 This note was completed by: Tana Yung RN THERAPY NT Observed: 04/27/2018 Status: COMPLETED Source: [place] 11:[address] [facility] OTHER [place] REPOSITORY HNO ID: [id number] Author: Carmen Holcomb (Ot/L) Service: Occupational Therapy Author Type: Occupational Therapist Type: Therapy (PT/OT/Speech/Resp) Filed: 04/27/2018 11:20 AM Note Text: Occupational Therapy Treatment SERVICE DATE: 04/27/2018 SERVICE TIME: 1040 to 1106 ROOM: [id number] Recommended Discharge Disposition: Acute Rehab Recommended [...] Functions and Awareness Interventions Provided: Cognitive Training (45413 or G0515);Self Fci Management (20021) Self Fci Management (48048) Treatment Minutes: 10 1 unit Skilled Intervention(s): [...] Moderate Attention Deficits: Distractible Memory Deficits: Short Term;Check Examiner (difficulty with recall) Executive Function Deficits: Sequencing;Problem [...] CASE MANAGEM Observed: 04/27/2018 Status: COMPLETED Source: [place] 11:[address] [facility] [place] REPOSITORY HNO ID: [id number] Author: Zoraida (Specialist) Adebayo Service: Care Management Author Type: (none) Type: Care Mgt Progress Note Filed: 04/27/2018 11:07 AM Note Text: This pt will be leaving @1pm. The nurse and the facility are both aware. I Notified the dad. CASE MANAGEM Observed: 04/27/2018 Status: COMPLETED Source: [place] 10:29 AM [facility] REPOSITORY HNO ID: [id number] Author: Sowmya (Rn) NAHUM Brunner Service: Care Management Author Type: Registered Nurse Type: Care Mgt Progress Note Filed: 04/27/2018 10:31 AM Note Text: CARE MANAGEMENT DISCHARGE NOTE SERVICE DATE: 04/27/2018 SERVICE TIME: 10:29 AM LOS: 20 days Chart reviewed. Plan is to discharge to [facility] today. Pt to go via COT due to risk of falls, SDH, Encephalopathy, Severe Protein malnutrition. Fiber Designer made aware. SIGNATURE: Sowmya Brunner RN PATIENT NAME: Ifeoma Ashraf DATE: April 27, 2018 TIME: 10:29 AM PAGER/CONTACT #: [phone] CNDS Observed: 04/27/2018 Status: COMPLETED Source: [place] 9:[address] [facility] [place] REPOSITORY HNO ID: [id number] Author: Linda Scales Service: Hospital Medicine Author [...] Karol Quintero Consulting: Negrito Ghosh Consulting: Loly Angeles Primary Service: Bart Pedersen MY CONDITION AT [...] THIS TIME: No pending results Discharge Disposition [facility] Activity When You Leave the Hospital Activity Resume pre-hospital activity Diet Instructions Diet Resume pre-hospital diet Follow Up Appointments Follow-Up Appointment With: Porfirio General neurology or local neurologist When: In 6 weeks Follow-Up Appointment When: In 6 weeks Bebeto Oconnell [phone] [address] [place] [address] [place] [address] PCP Requested Referral Additional Provider to Provider Information: 1. Acute encephlopathy - 2. 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 Depression - 4. Hallucinations - 5. History of NHL 6. CHronic systolic CHF - 7. History of DVT - 8. Nausea with vomiting - FOLLOW-UP APPOINTMENTS ALREADY SCHEDULED WITH A [facility] PROVIDER: No future appointments. 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 (Med.Supl.;Non- Drugs) PRN [...] 27, 2018 TIME: 9:36 AM PAGER/CONTACT #: [phone] EKG (AK,AV,EU,FV,HL,LOVELY,MM,SP) Observed: Status: F Source: [place] 04/27/2018 12:06 CLINIC OTHER AM CAMPUS REPOSITORY NAME : IFEOMA ASHRAF PID : [id number] : 1965 Gender : Female Race : ORD : [id number] Procedure Date : Apr 27 2018 00:06 [...] ms QTC Calculation(Bezet) : 447 ms P [place] : 36 degrees R [place] : -35 degrees T [place] : 101 degrees Test Reason : Chest Pain Location : 54 : [id number] Overread By : MD Birmingham Fernando Editted By : MD [place] Fernando Referred By : MILENA BUTLER Acquired by : JULIA FIERRO PROG Observed: 04/26/2018 Status: COMPLETED Source: [place] 11:51 PM CLINIC OTHER CAMPUS REPOSITORY HNO ID: [id number] Author: Sandra (Rn) NHAUM Tran Service: Nursing Author Type: Registered Nurse Type: Nursing Progress Note Filed: 04/27/2018 12:00 AM Note Text: Nursing Progress Note Patient Name: Ifeoma Ashraf Patient Location: [place] [address] [address]* Daily Note: 23:25 Patient complained of new [...] MDRD GFR Collected: 04/26/2018 Status: F Source: [facility] 11:46 PM HEALTH SYSTEM REPOSITORY TYPE CODE TESTS RESULT OUT OF RANGE REFERENCE UNITS LAB GFRFN(LOINC >60mL/min/1.73m ) 2 eGFR >60 Result Comment: If the patient is , multiply the result by 1.210. Performed By: #### GFR #### [place] [address] HEMOGRAM Collected: 04/26/2018 Status: F Source: [facility] 11:46 PM HEALTH SYSTEM REPOSITORY TYPE CODE [...] MPV 10.1 Performed By: #### CBC1 #### [place] [address] BASIC PANEL Collected: 04/26/2018 Status: F Source: [address] [facility] REPOSITORY TYPE CODE TESTS RESULT [...] Gap 13 Performed By: #### P8 #### [place] [address] TROPONIN I Collected: 04/26/2018 Status: F Source: [address] [facility] REPOSITORY TYPE CODE TESTS RESULT OUT OF REFERENCE UNITS RANGE LAB TROP(LOINC) 0.015-0.045 ng/ml Troponin I < 0.015 Performed By: #### TROP #### [facility] [address] [place] [address] CASE MANAGEM Observed: 04/26/2018 Status: COMPLETED Source: [place] 5:23 PM [facility] REPOSITORY HNO ID: [id number] Author: Jyoti MckeonRn) NAHUM Aparicio Service: Care [...] to DC to SNF. Anticipate DC to [facility] when medically stable. Pre-cert obtained YESTERDAY is good for 48 hours. Anticipate DC tomorrow. Will follow for DC orders. SIGNATURE: Jyoti Aparicio RN PATIENT NAME: Ifeoma Ashraf DATE: April 26, 2018 TIME: 5:23 PM PAGER/CONTACT #: [phone] CT HEAD W/O CONTRAST Observed: 04/26/2018 Status: F Source: [facility] 2:23 PM HEALTH SYSTEM REPOSITORY Performed at [facility] APPROVED BY: Louie Crane MD [...] tentorium. 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 (Med.Supl.;Non- Drugs) PRN [...] April 26, 2018 TIME: 1:19 PM PAGER: [phone] CONSULT Observed: 04/26/2018 Status: COMPLETED Source: [place] 10:48 AM [facility] REPOSITORY O ID: [id number] Author: Callie Charles Service: Psychiatry Author Type: Resident Type: Consults Filed: 04/26/2018 11:06 AM Note Text: Attestation signed by Nakul Apodaca at 04/28/2018 9:33 PM Discussed with the resident and agree with resident's findings and plan as documented in the resident's note. [facility] GENERAL CONSULT LIAISON PSYCHIATRY INITIAL PSYCHIATRIC [...] record review, patient has been hospitalized at [facility] since 04/07/2018 for SDH. 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 (Med.Supl.;Non- Drugs) PRN [...] vomiting - resolved Plan to return to [facility] tomorrow if no issues VTE Prophylaxis: Pneumatic Compression Device Disposition: Extended Care Facility Functional Status Prior to Admit: Plan of care discussed with: Patient SIGNATURE: Linda Scales DO PATIENT NAME: Ifeoma Ashraf DATE: April 26, 2018 TIME: 9:57 AM PAGER/CONTACT #: [phone] NURSING PROG Observed: 04/26/2018 Status: COMPLETED Source: [place] 8:26 AM [facility] REPOSITORY HNO ID: [id number] Author: Jewel MckeonRn) NAHUM Noble Service: Nursing Author Type: Registered Nurse Type: Nursing Progress Note Filed: 04/26/2018 8:36 AM Note Text: CIT/Code Hawa Patient Name: Ifeoma Ashraf Patient Location: [id number] [address]* Who was involved: Patient, RN Location of [...] NURSING PROG Observed: 04/25/2018 Status: COMPLETED Source: [place] 9:00 PM [facility] REPOSITORY HNO ID: [id number] Author: Jewel MckeonRn) Real RN Service: Nursing [...] THERAPY NT Observed: 04/25/2018 Status: COMPLETED Source: [place] 3:27 PM CLINIC OTHER CAMPUS REPOSITORY HNO ID: [id number] Author: Mayra Mckeon Service: Physical Therapy Author Type: Milk And Cream Grader Type: Therapy (PT/OT/Speech/Resp) Filed: 04/25/2018 3:35 PM Note Text: Attestation signed by Miranda Gilliland at 04/25/2018 3:58 PM I reviewed and agree with the documentation corresponding to this therapy visit. SIGNATURE: Miranda Gilliland, PT DATE: April 25, 2018 TIME: 3:58 PM Physical Therapy Treatment SERVICE DATE: 04/25/2018 SERVICE TIME: 1456 to 1519 ROOM: [id number] Recommended Discharge Disposition: Subacute/SNF Justification For Post [...] gait and mobility-other Interventions Provided: Therapeutic Exercise (07308);Therapeutic Activity (67593);Gait Training (82249) Therapeutic Exercise (95810) Treatment Minutes: 10 1 unit Skilled Intervention(s): Instruction in therapeutic exercise for ROM and strengthening Patient completed general strengthening exercises in supine, at edge of bed or chair (ankle pump, quad set, gluteal set, hip abd/add, straight leg raise, long arc quad, short arc quad, hip adductor squeeze) x 12 reps B lower extremity, with min assist. Therapeutic Activity (80359) Treatment Minutes: 5 0 units Skilled Intervention(s): [...] of LOB and knees buckling. Gait Training (49042) Treatment Minutes: 8 1 unit Skilled Intervention(s): [...] CASE MANAGEM Observed: 04/25/2018 Status: COMPLETED Source: [place] 2:47 PM CLINIC OTHER CAMPUS REPOSITORY HNO ID: [id number] Author: Ernestina MckeonRn) NAHUM Hernandez Service: Care Management Author Type: Registered Nurse Type: Care Mgt Progress Note Filed: 04/25/2018 2:49 PM Note Text: CARE MANAGEMENT PROGRESS NOTE SERVICE DATE: 04/25/2018 SERVICE TIME: 2:47 PM LOS: 18 days Chart reviewed. No DC today, await psych recs. TC to [facility], spoke with Madelyn, insurance precert is good for 48 hours. Madelyn (from [facility]) cell # is [phone]. Continue to follow. 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 (Med.Supl.;Non- Drugs) PRN [...] CASE MANAGEM Observed: 04/25/2018 Status: COMPLETED Source: [place] 1:34 PM CLINIC OTHER CAMPUS REPOSITORY HNO ID: [id number] Author: Ernestina Sharpe) NAHUM Hernandez Service: Care Management Author Type: Registered Nurse Type: Care Mgt Progress Note Filed: 04/25/2018 1:35 PM Note Text: CARE MANAGEMENT PROGRESS NOTE SERVICE DATE: 04/25/2018 SERVICE TIME: 1:35 PM LOS: 18 days Chart reviewed. Met with patient and patient's Mother, Darlene, at bedside. Notified pt and Yvone precert was obtained from [facility]. Discussed with [facility], patient to travel via cot transport. Patient very tearful in room, reporting hallucinations. Dr. Manrique notified of precert and patient's complaints. Will follow for DC orders. SIGNATURE: Ernestina Hernandez RN PATIENT NAME: Ifeoma Ashraf DATE: April 25, 2018 TIME: 1:35 PM PAGER/CONTACT #: [phone] ALLIED HEALTH Observed: 04/25/2018 Status: COMPLETED Source: [place] 11:[address] 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 (Med.Supl.;Non- Drugs) PRN [...] ALLIED HEALTH Observed: 04/24/2018 Status: COMPLETED Source: [place] 2:50 PM CLINIC OTHER CAMPUS REPOSITORY HNO ID: [id number] Author: Zeny DE Service: (none) Author Type: [...] I Hope You Dance; You Are My [place] Style of Music: Various Family Present: No [...] Will continue to follow. SIGNATURE: Zeny Thayer [facility] PATIENT NAME: Ifeoma Ashraf DATE: April 24, 2018 TIME: 4:09 PM PAGER/CONTACT #: P: [phone] NURSING PROG Observed: 04/24/2018 Status: COMPLETED Source: [place] 1:31 PM CLINIC OTHER CAMPUS REPOSITORY HNO ID: [id number] Author: Alicia (Rn) NAHUM Bush Service: Hematology/Oncology Author Type: Registered Nurse Type: Nursing Progress Note Filed: 04/24/2018 1:32 PM Note Text: 11:00 hour, pt was tearful, stated so dizzy she couldn't stand it, seemed to be hallucinating. RN informed Dr Manrique and mentioned that meds had recently been changed. By 12:10 patient was asleep in chair. CASE MANAGEM Observed: 04/24/2018 Status: COMPLETED Source: [place] 11:07 AM [facility] REPOSITORY HNO ID: [id number] Author: Ciaran MckeonRn) NAHUM Zuñiga Service: Care Management Author Type: Registered Nurse Type: Care Mgt Progress Note Filed: 04/24/2018 11:07 AM Note Text: Spoke with admissions at [facility], they need updated pt/ot notes to start precert. Updated notes were sent. Await insurance approval. NUTRITION Observed: 04/24/2018 Status: COMPLETED Source: [place] 9:37 AM [facility] REPOSITORY HNO ID: [id number] Author: Domi Manning) Juan J Service: Nutrition [...] [employer]mie Medical Model 1211-36Q Serial Number [id number] Implant Date 10/10/2009 Implanted By Flavio Delgadillo, BLANK _ [employer]mie Medical Model 7121Q Serial Number [id number] Implant Date 10/10/2009 PAST MEDICAL HISTORY Diagnosis [...] lb) 07/27/10 : 135.2 kg (298 lb) [place] Body Weight: 59.1kg Resting Metabolic Rate: 1605 Estimated kilocalorie needs: 1923-5137?kilocalories determined by 25-30?kcal/kg Estimated protein needs: 59-71?grams determined by 1.0-1.2 g/kg?[place]?weight Estimated fluid needs: 2000?milliliters based on guidelines [...] tab(s) 9 mg 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 (Med.Supl.;Non- Drugs) PRN [...] (Active) Stage Injury 1 04/23/2018 9:25 PM Superintendent Storage Area Related Pressure Injury No 04/23/2018 9:25 PM Dressing Status None: Open to Air 04/23/2018 9:25 PM Frequency of Dressing Change Every 3 Days 04/17/2018 7:30 PM Dressing Change Due 04/18/18 04/17/2018 7:30 PM Dressing/Treatment Type Protective Barrier Paste 04/23/2018 9:25 PM Drainage Description None 04/23/2018 9:25 PM Drainage Amount None 04/23/2018 9:25 PM Odor No 04/23/2018 9:25 PM Wound Surface Color [place] 04/23/2018 9:25 PM Surrounding Skin Intact;Dry 04/23/2018 [...] April 24, 2018 TIME: 9:41 AM PAGER: [phone] CONSULT PROG Observed: 04/24/2018 Status: COMPLETED Source: [place] 9:25 AM CLINIC OTHER CAMPUS REPOSITORY HNO ID: [id number] Author: Robyn Chavez (Pa) Service: Neurology Author Type: Physician Solid Waste Facility Operator Type: Consult Progress Note Filed: 04/24/2018 [...] GLUCOSE METER Collected: 04/24/2018 Status: F Source: [facility] 6:17 AM HEALTH SYSTEM REPOSITORY TYPE CODE TESTS RESULT OUT OF REFERENCE UNITS RANGE LAB GLUBL(LOINC 70-99 mg/dL ) High Glucose Meter 123 Result Comment: RN NOTIFIED Performed By: #### GLMET #### [place] [address] BASIC PANEL Collected: 04/24/2018 Status: F Source: [facility] 5:15 AM HEALTH SYSTEM REPOSITORY TYPE CODE [...] Gap 14 Performed By: #### P8 #### [place] [address] HEMOGRAM Collected: 04/24/2018 Status: F Source: [facility] 5:15 AM HEALTH SYSTEM REPOSITORY TYPE CODE [...] MPV 10.2 Performed By: #### CBC1 #### [place] [address] THERAPY NT Observed: 04/23/2018 Status: COMPLETED Source: [place] 4:20 PM CLINIC OTHER CAMPUS REPOSITORY HNO ID: [id number] Author: Amada Ching/Leela Whitt Service: Occupational Therapy Author Type: Occupational Therapist Type: Therapy (PT/OT/Speech/Resp) Filed: 04/23/2018 4:30 PM Note Text: Occupational Therapy Treatment SERVICE DATE: 04/23/2018 SERVICE TIME: 1515 to 1550 ROOM: [id number] Recommended Discharge Disposition: Acute Rehab Recommended Discharge [...] Functions and Awareness Interventions Provided: Therapeutic Activity (30612);Self Fci Management (75061) Therapeutic Activity (25030) Treatment Minutes: 10 1 unit Skilled Intervention(s): [...] to adjust due to low cog. 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 (Med.Supl.;Non- Drugs) PRN [...] THERAPY NT Observed: 04/23/2018 Status: COMPLETED Source: [place] 11:[address] [facility] OTHER CAMPUS REPOSITORY HNO ID: [id number] Author: Lori Frazier Service: Physical Therapy Author Type: Milk And Cream Grader Type: Therapy (PT/OT/Speech/Resp) Filed: 04/23/2018 12:06 PM Note Text: Attestation signed by Miranda Gilliland at 04/23/2018 3:08 PM I reviewed and agree with the documentation corresponding to this therapy visit. SIGNATURE: Miranda Gilliland PT DATE: April 23, 2018 TIME: 3:08 PM Physical Therapy Treatment SERVICE DATE: 04/23/2018 SERVICE TIME: 1120 to 1150 ROOM: [place] [address] Recommended Discharge Disposition: Subacute/SNF Justification For Post [...] gait and mobility-other Interventions Provided: Therapeutic Exercise (47909);Therapeutic Activity (36438) Therapeutic Exercise (15169) Treatment Minutes: 14 1 unit Skilled Intervention(s): Instruction in therapeutic exercise: Patient completed general strengthening exercises in supine and chair (ankle pump, quad set, gluteal set, heel slide, hip abd/add, straight leg raise, long arc quad, hip adductor squeeze) x 10-12 reps bilateral lower extremity, with minimal assist and moderate cueing for facilitation of muscle control, optimal recruitment and alignment Therapeutic Activity (56955) Treatment Minutes: 12 1 unit Skilled Intervention(s): [...] AM HEMOGRAM Collected: 04/23/2018 Status: F Source: [facility] 4:30 AM HEALTH SYSTEM REPOSITORY TYPE CODE [...] MPV 10.0 Performed By: #### CBC1 #### [facility] [address] [place] [address] BASIC PANEL Collected: 04/23/2018 Status: F Source: [facility] 4:30 AM HEALTH SYSTEM REPOSITORY TYPE CODE [...] Gap 13 Performed By: #### P8 #### [facility] [address] [address] HGB A1C Collected: 04/23/2018 Status: F Source: [facility] 4:30 AM HEALTH SYSTEM REPOSITORY TYPE CODE TESTS RESULT OUT OF RANGE REFERENCE UNITS LAB A1C5(LOINC) 4.2-6.3 % Hgb A1c 5.2 Result Comment: Method is National Glycohemoglobin Standardization Program (NGSP) compliant. LAB ESAVG(LOINC) mg/dl Est. Avg Glucose 103 Performed By: #### HA1C #### [place] [address] CONSULT PROG Observed: 04/22/2018 Status: COMPLETED Source: [place] 2:43 PM CLINIC OTHER CAMPUS REPOSITORY O ID: [id number] Author: Shamir Engle) Stephen Service: Neurology Author Type: Physician Solid Waste Facility Operator Type: Consult Progress Note Filed: 04/22/2018 [...] 1763 PROGRESS Observed: 04/22/2018 Status: COMPLETED Source: [place] 10:11 AM CLINIC OTHER CAMPUS REPOSITORY HNO ID: [id number] Author: Janusz Garcia Service: Hospital Medicine Author [...] PAGER: HEMOGRAM Collected: 04/22/2018 Status: F Source: [facility] 8:15 AM HEALTH SYSTEM REPOSITORY TYPE CODE [...] MPV 10.0 Performed By: #### CBC1 #### [place] [address] BASIC PANEL Collected: 04/22/2018 Status: F Source: [facility] 8:15 AM HEALTH SYSTEM REPOSITORY TYPE CODE [...] Gap 10 Performed By: #### P8 #### [place] [address] CASE MANAGEM Observed: 04/21/2018 Status: COMPLETED Source: [place] 4:00 PM CLINIC OTHER CAMPUS REPOSITORY HNO ID: [id number] Author: Sowmya (Rn) NAHUM Brunner Service: Care Management Author Type: Registered Nurse Type: Care Mgt Progress Note Filed: 04/21/2018 4:13 PM Note Text: CARE MANAGEMENT PROGRESS NOTE SERVICE DATE: 04/21/2018 SERVICE TIME: 4:00 PM LOS: 14 days Called to [facility] and Ingrid was still in a patient meeting and unable to tell me about bed availablity. Finally received a call from Ingrid and they have no female beds available. Call to mother to notify. Will have [facility] apply for precert. Asked Ingrid at [facility] [phone] to please put patient on the waiting list. Ingrid put her on the list but the patient is the 5th on the list. Before her are 2 people from their assisted living and 2 from the community. Call patients mother Darlene [phone] and made her aware of all of this. PT/OT to be done on Tuesday for [facility] to apply for precert Tuesday. SIGNATURE: Sowmya Brunner RN PATIENT NAME: Ifeoma Ashraf DATE: April 21, 2018 TIME: 4:00 PM PAGER/CONTACT #: [phone] THERAPY NT Observed: 04/21/2018 Status: COMPLETED Source: [place] 3:57 PM CLINIC OTHER CAMPUS REPOSITORY HNO ID: [id number] Author: Mushtaq (Pt) Lois Service: Physical Therapy Author Type: Physical Therapist Type: Therapy (PT/OT/Speech/Resp) Filed: 04/21/2018 4:11 PM Note Text: Physical Therapy Treatment SERVICE DATE: 04/21/2018 SERVICE TIME: 1504 to 1551 ROOM: [place] [address] Recommended Discharge Disposition: Subacute/SNF Justification For Post [...] gait and mobility-other Interventions Provided: Therapeutic Exercise (77446);Therapeutic Activity (77237) Therapeutic Exercise (75032) Treatment Minutes: 30 2 units Skilled Intervention(s): [...] at rest and with activity. Therapeutic Activity (27943) Treatment Minutes: 12 1 unit Skilled Intervention(s): [...] CASE MANAGEM Observed: 04/21/2018 Status: COMPLETED Source: [place] 12:25 PM CLINIC OTHER CAMPUS REPOSITORY HNO ID: [id number] Author: Sowmya (Rn) NAHUM Brunner Service: Care Management Author Type: Registered Nurse Type: Care Mgt Progress Note Filed: 04/21/2018 12:26 PM Note Text: CARE MANAGEMENT PROGRESS NOTE SERVICE DATE: 04/21/2018 SERVICE TIME: 12:25 PM LOS: 14 days [facility] called and they have no beds. Call again Placed to [facility] and [facility] admissions - was in with a resident. Message left again. SIGNATURE: Sowmya Brunner RN PATIENT NAME: Ifeoma Ashraf DATE: April 21, 2018 TIME: 12:25 PM PAGER/CONTACT #: [phone] PROGRESS Observed: 04/21/2018 Status: COMPLETED Source: [place] 10:45 AM CLINIC OTHER CAMPUS REPOSITORY HNO ID: [id number] Author: Janusz Garcia Service: Hospital Medicine Author [...] if diarrhea recurrs. ? Plan SNF [place]. Await acceptance at facility of choice. SIGNATURE: Janusz Garcia MD PATIENT NAME: Ifeoma Ashraf DATE: April 21, 2018 TIME: 10:45 AM PAGER: CASE MANAGEM Observed: 04/21/2018 Status: COMPLETED Source: [place] 10:22 AM CLINIC OTHER CAMPUS REPOSITORY HNO ID: [id number] Author: Sowmya (Rn) NAHUM Brunner Service: Care Management Author Type: Registered Nurse Type: Care Mgt Progress Note Filed: 04/21/2018 10:28 AM Note Text: CARE MANAGEMENT PROGRESS NOTE SERVICE DATE: 04/21/2018 SERVICE TIME: 10:22 AM LOS: 14 days Chart reviewed. Call placed to [facility] [phone] and left message for Ingrid in admissions to please call me back. Call also placed to [facility] SNF [phone] left message to please call back. [facility] accept pt but Mother does not want her to go there unless the two facilities mentioned above deny the patient. Will continue to follow. For discharge planning. Patient WILL require precert once we have an accepting facility. SIGNATURE: Sowmya Brunner RN PATIENT NAME: Ifeoma Ashraf DATE: April 21, 2018 TIME: 10:22 AM PAGER/CONTACT #: [phone] HEMOGRAM Collected: 04/21/2018 Status: F Source: [facility] 6:05 AM HEALTH SYSTEM REPOSITORY TYPE CODE [...] MPV 10.4 Performed By: #### CBC1 #### [place] [address] BASIC PANEL Collected: 04/21/2018 Status: F Source: [facility] 6:05 AM HEALTH SYSTEM REPOSITORY TYPE CODE [...] Gap 12 Performed By: #### P8 #### [place] [address] ALLIED HEALTH Observed: 04/20/2018 Status: COMPLETED Source: [place] 12:37 PM CLINIC OTHER CAMPUS REPOSITORY HNO ID: [id number] Author: Wen (Rn) Saus, RN Service: Nursing [...] PM PROGRESS Observed: 04/20/2018 Status: COMPLETED Source: [place] 10:57 AM CLINIC OTHER CAMPUS REPOSITORY HNO ID: [id number] Author: Janusz Garcia Service: Hospital Medicine Author [...] mild hyperammonemia resolved Plan for SNF [place]. precert needed ? SIGNATURE: Janusz Garcia MD [...] THERAPY NT Observed: 04/20/2018 Status: COMPLETED Source: [place] 10:15 AM CLINIC OTHER CAMPUS REPOSITORY HNO ID: [id number] Author: Mushtaq (Pt) Lois Service: Physical Therapy Author Type: Physical Therapist Type: Therapy (PT/OT/Speech/Resp) Filed: 04/20/2018 10:28 AM Note Text: Physical Therapy Treatment SERVICE DATE: 04/20/2018 SERVICE TIME: 937 to 1005 ROOM: [place] [address] Recommended Discharge Disposition: Subacute/SNF Justification For Post [...] gait and mobility-other Interventions Provided: Therapeutic Exercise (22356) Therapeutic Exercise (92940) Treatment Minutes: 25 2 units Skilled Intervention(s): [...] CASE MANAGEM Observed: 04/20/2018 Status: COMPLETED Source: [place] 10:03 AM CLINIC OTHER CAMPUS REPOSITORY HNO ID: [id number] Author: Ernestina Sharpe) NAHUM Hernandez Service: Care Management Author Type: Registered Nurse Type: Care Mgt Progress Note Filed: 04/20/2018 10:13 AM Note Text: CARE MANAGEMENT PROGRESS NOTE SERVICE DATE: 04/20/2018 SERVICE TIME: 10:03 AM LOS: 13 days Chart reivewed. Notified via [employer] that [facility] is out of network for this patient's insurance plan and she would have a 50% daily co-pay. TC to patient's mother Darlene [phone] to discuss DC plan. She states her first choice for DC is still [facility]. TC/VM left for [facility] [phone], await CB. Darlene's second choice is [facility] SNF. TC/VM left for [facility] [phone], await CB. Darlene reports she would be agreeable to [facility] only if first 2 choices can not accept. Spoke with Madelyn from [facility] [phone], she states her facility is in network for the patient's insurance. Await CB from family's first SNF choice. Patient will need precert prior to DC. PT to re-eval patient this AM. Cont to follow SIGNATURE: Ernestina Hernandez RN PATIENT NAME: Ifeoma Ashraf DATE: April 20, 2018 TIME: 10:03 AM PAGER/CONTACT #: [phone] NUTRITION Observed: 04/20/2018 Status: COMPLETED Source: [place] 9:[address] [facility] OTHER [place] REPOSITORY HNO ID: [id number] Author: Domi Arita Service: Nutrition Therapy Author [...] systolic and diastolic CHF (congestive heart failure) ([facility]) 04/11/2018 Overview Note: LVEF 25-30%, Stg 3-4 diastolic dysfunction, echo 04/12 - Altered mental state 04/07/2018 - Lactic acidosis 04/07/2018 - SDH (subdural hematoma) ([facility]) 04/07/2018 - Coagulopathy ([facility]) 04/07/2018 - Encephalopathy 04/07/2018 - Obesity, Class II, BMI 35-39.9 04/07/2018 - LV dysfunction 05/20/2010 - Obesity 05/20/2010 - Implantable cardioverter-defibrillator (ICD) in situ 10/13/2009 Overview Note: ICD-Device Mfg [employer] Model 1211-36Q Serial Number [id number] Implant Date 10/10/2009 Implanted By AZEEM Hong _ Lead1 Mfg [employer] Model 7121Q Serial Number [id number] Implant Date 10/10/2009 PAST MEDICAL HISTORY Diagnosis [...] (289 lb) ???07/27/2010 ??135.2 kg (298 lb) [place] Body Weight: 59.1kg Resting Metabolic Rate: 1605 Estimated kilocalorie needs: 7427-2092 kilocalories determined by 25-30 kcal/kg Estimated protein needs: 59-71 grams determined by 1.0-1.2 g/kg [place] weight Estimated fluid needs: 2000 milliliters based [...] tab(s) 9 mg 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 (Med.Supl.;Non- Drugs) PRN [...] (Active) Stage Injury 1 04/18/2018 7:50 PM Superintendent Storage Area Related Pressure Injury No 04/18/2018 7:50 PM Dressing Status Intact 04/17/2018 7:30 PM Frequency of Dressing Change Every 3 Days 04/17/2018 7:30 PM Dressing Change Due 04/18/18 04/17/2018 7:30 PM Dressing/Treatment Type Foam-Adhesive 04/17/2018 7:30 PM Drainage Description None 04/17/2018 7:30 PM Drainage Amount None 04/17/2018 7:30 PM Odor No 04/17/2018 7:30 PM Wound Surface Color [place] 04/17/2018 7:30 PM Surrounding Skin Intact 04/17/2018 [...] April 20, 2018 TIME: 9:48 AM PAGER: [phone] HEMOGRAM Collected: 04/20/2018 Status: F Source: [facility] 5:10 AM HEALTH SYSTEM REPOSITORY TYPE CODE [...] MPV 10.0 Performed By: #### CBC1 #### [facility] [address] [address] BASIC PANEL Collected: 04/20/2018 Status: F Source: [facility] 5:10 AM HEALTH SYSTEM REPOSITORY TYPE CODE [...] Gap 8 Performed By: #### P8 #### [facility] [address] [address] MAGNESIUM BLOOD Collected: 04/20/2018 Status: F Source: [facility] 5:05 AM HEALTH SYSTEM REPOSITORY TYPE CODE TESTS RESULT OUT OF REFERENCE UNITS RANGE LAB MAG(LOINC) 1.6-2.6 mg/dL Magnesium Blood 1.7 Performed By: #### MAG #### [facility] [address], [place] [address] THERAPY NT Observed: 04/19/2018 Status: COMPLETED Source: [place] 3:43 PM CLINIC OTHER CAMPUS REPOSITORY HNO ID: [id number] Author: Jessika Ching/Leela Metcalf Service: Occupational Therapy Author Type: Occupational Therapist Type: Therapy (PT/OT/Speech/Resp) Filed: 04/19/2018 3:55 PM Note Text: Occupational Therapy Treatment SERVICE DATE: 04/19/2018 SERVICE TIME: 1512 to 1538 ROOM: [place] [address] Recommended Discharge Disposition: Subacute/SNF Justification For Post [...] at End of Session: Supine in Bed;Call Sdihu in Reach;Bed Alarm Tolerance Limited By (patient [...] Cognitive Functions and Awareness Interventions Provided: Self Fci Management (90344);Therapeutic Activity (94539) Therapeutic Activity (96729) Treatment Minutes: 13 1 unit Skilled Intervention(s): [...] the left side of the room. Self Fci Management (19594) Treatment Minutes: 13 1 unit Skilled Intervention(s): [...] Follows Commands: 1-step Commands Memory Deficits: Short Term;Check Examiner (difficulty with recall) Executive Function Deficits: Sequencing;Problem [...] THERAPY NT Observed: 04/19/2018 Status: COMPLETED Source: [place] 3:42 PM [facility] REPOSITORY HNO ID: [id number] Author: Mushtaq MckeonPt) Lois Service: Physical Therapy Author Type: Physical Therapist Type: Therapy (PT/OT/Speech/Resp) Filed: 04/19/2018 3:43 PM Note Text: PHYSICAL THERAPY MISSED VISIT SERVICE DATE: 04/19/2018 SERVICE TIME: 1541 to 1541 ROOM: [place] [address] Attempted Treatment. Patient not seen due to Other: See Comment (Upset and nauseated). Just finished with OT, upset, frustrated, nauseated. Will attempt tomorrow morning. SIGNATURE: Mushtaq Abreu PT PATIENT NAME: Ifeoma Ashraf DATE: April 19, 2018 TIME: 3:42 PM NURSING PROG Observed: 04/19/2018 Status: COMPLETED Source: [place] 3:15 PM [facility] REPOSITORY HNO ID: [id number] Author: Corrie (Rn) Real, RN Service: Nursing Author Type: Registered Nurse Type: Nursing Progress Note Filed: 04/19/2018 3:38 PM Note Text: Patient anxious and unable to express herself states I can't.... Tearful. Emotional support offered. CASE MANAGEM Observed: 04/19/2018 Status: COMPLETED Source: [place] 3:10 PM [facility] REPOSITORY HNO ID: [id number] Author: Sowmya (Rn) Myesha, NAHUM Service: Care Management Author Type: Registered Nurse Type: Care Mgt Progress Note Filed: 04/19/2018 3:53 PM Note Text: CARE MANAGEMENT PROGRESS NOTE SERVICE DATE: 04/19/2018 SERVICE TIME: 3:10 PM LOS: 12 days Chart reviewed. Lumbar puncture has some outstanding results. Pt remains encephalopathic and cause is unknown. Call To [facility], at [phone],and spoke with admitting Madelyn. [facility] is for behavior patients and they do not take [employer] and [facility] is a SNF on the same campus and they could take her as long as they can get prior auth. She had some questions that I answered and she will need PT/OT update. Called to therapy department and Jess was going to get someone either this afternoon or in am to re-eval. Call to parents at [phone] spoke with mother Darlene and she would prefer [facility] [phone]. I called [facility] and was able to leave a message for [facility](?) to see if they can accept patient. Will need to call them again on 04/20 if no response before I leave today. Mother wants [facility] due to it is very close to her and [facility] farther away. Plan is likely to discharge tomorrow. Pending precert is obtained from insurance. SIGNATURE: Sowmya Brunner RN PATIENT NAME: Ifeoma Ashraf DATE: April 19, 2018 TIME: 3:10 PM PAGER/CONTACT #: [phone] PROGRESS Observed: 04/19/2018 Status: COMPLETED Source: [place] 12:07 PM CLINIC OTHER CAMPUS REPOSITORY HNO ID: [id number] Author: Janusz Garcia Service: Hospital Medicine Author [...] CONSULT PROG Observed: 04/19/2018 Status: COMPLETED Source: [place] 7:10 AM CLINIC OTHER CAMPUS REPOSITORY HNO ID: [id number] Author: Divina Srinivasan Service: Neurology Author Type: Nurse Practitioner Type: Consult Progress Note Filed: 04/19/2018 7:31 AM Note Text: CSF Enterovirus-- neg HSV DNA--neg [place]--neg Pending results LAMOTRIGINE METHYLMALONIC ACID CCSF cytology (order placed 04/17) was not send to lab, spoke with excavation laborer sample still available to be tested if rec sent down. RN unavailable spoke with service unit operator oil well who will send down rec and notify RN of order. Will follow results peripherally, and make recs if needed HEMOGRAM Collected: 04/19/2018 Status: F Source: [facility] 6:50 AM HEALTH SYSTEM REPOSITORY TYPE CODE [...] MPV 10.0 Performed By: #### CBC1 #### [place] [address] BASIC PANEL Collected: 04/19/2018 Status: F Source: [facility] 6:50 AM HEALTH SYSTEM REPOSITORY TYPE CODE [...] Gap 10 Performed By: #### P8 #### [place] [address] PROGRESS Observed: 04/18/2018 Status: COMPLETED Source: [place] 7:00 PM CLINIC OTHER CAMPUS REPOSITORY HNO ID: [id number] Author: Maricruz Manrique Service: Hospital Medicine Author Type: Physician Type: Progress Notes Filed: 04/19/2018 10:53 AM Note Text: Pt seen 04/18/18- VSS- nad, when I ask her to tell me her name she nods no- H reg- Lclear- abd soft- extr no swelling- Imp: See my note 04/17/18- Dc planning- ALLIED HEALTH Observed: 04/18/2018 Status: COMPLETED Source: [place] 2:00 PM CLINIC OTHER CAMPUS REPOSITORY HNO ID: [id number] Author: Angelina Osorio (Salt Maker) Chaplain Dashawn Service: Spiritual Care Author Type: Salt Maker Type: Allied Health Filed: 04/18/2018 2:16 PM Note Text: SPIRITUALCARE Spiritual Care Visit- Brief Note Name: Ifeoma Ashraf Date: April 18, 2018 Notes: I was paged to visit the patient's room, she was upset. First the sand mixer operator software development intern visited the patient's room and found her very upset and thought a female sand mixer operator may be better with the patient. When I came to the patient's room, her mother and her mother's friend were working on making the patient comfortable. The patient was suffering from head pains and vertigo. I prayed with the patient and her visitors. I let them know that chaplains are always available if they need one. Salt Maker Signature: Chaplain Ayana To contact the Spiritual Care Department: Please call [phone] or Page the On-Call Salt Maker at pager [phone] Thank you for the opportunity to be of service. This is an electronically created document. IF PRINTED, PLEASE DO NOT REMOVE FROM THE CHART OR MODIFY PRINTED COPY. CASE MANAGEM Observed: 04/18/2018 Status: COMPLETED Source: [place] 1:[address] [facility] OTHER [place] REPOSITORY HNO ID: [id number] Author: Francy (Rn) NAHUM Kaur Service: Care [...] 18, 2018 TIME: 1:47 PM PAGER/CONTACT #: [phone] ALLIED HEALTH Observed: 04/18/2018 Status: COMPLETED Source: [place] 12:55 PM [facility] REPOSITORY HNO ID: [id number] Author: Shiela (Rn) NAHUM Dahl Service: Nursing [...] ALLIED HEALTH Observed: 04/18/2018 Status: COMPLETED Source: [place] 11:30 AM [facility] REPOSITORY HNO ID: [id number] Author: Zeny DE Service: (none) Author Type: [...] Will continue to follow. SIGNATURE: Zeny Thayer [place] PATIENT NAME: Ifeoma Ashraf DATE: April 18, 2018 TIME: 11:30am PAGER/CONTACT #: P: [phone] CASE MANAGEM Observed: 04/18/2018 Status: COMPLETED Source: [place] 10:46 AM CLINIC OTHER CAMPUS REPOSITORY HNO ID: [id number] Author: Francy Sharpe) NAHUM Kaur Service: Care Management Author Type: Registered Nurse Type: Care Mgt Progress Note Filed: 04/18/2018 10:50 AM Note Text: CARE MANAGEMENT PROGRESS NOTE SERVICE DATE: 04/18/2018 SERVICE TIME: 10:47 AM LOS: 11 days [facility] has no beds, sent to [facility], they are OON, tcvm to mother darlene for more choices. Will cont to follow . . SIGNATURE: Francy Kaur RN PATIENT NAME: Ifeoma Ashraf DATE: April 18, 2018 TIME: 10:46 AM PAGER/CONTACT #: [phone] ALLIED HEALTH Observed: 04/18/2018 Status: COMPLETED Source: [place] 9:56 AM CLINIC OTHER CAMPUS REPOSITORY HNO ID: [id number] Author: Dejuan Cox Student Service: (none) Author Type: (none) Type: Allied Health Filed: 04/18/2018 10:27 AM Note Text: SPIRITUAL CARE Spiritual Care Visit Record Name: Ifeoma Ashraf Date: April 18, 2018 Type of Visit: Referral from RN. Purpose of Referral (if stated): House Salt Maker paged to see the pt, House Salt Maker referred to me since I was on the unit. Urgency of Visit: Routine Visit was with (pt, family, other) and name(s): pt Ifeoma. SPIRITUAL CARE VISIT Spiritual Distress: 10 - Salt Maker Observation. Spiritual Distress Scale (1-10 with 1= [...] help and out of control. 3. Spiritual Tenriism Issues, Beliefs Significant to Healing, or Other [...] / TEAM COLLABORATION Referrals: Other Health Care Boiler/Chiller Operator- Who: Pt's RN, Auto Mechanics Teacher, Psych Notes Regarding Collaboration / Consultation With Care Team: I mentioned to Care Management and the Stone Product Fabricator that the pt was out of control and appears to be hallucinating. I asked if Psych had been contacted for a consult. Stone Product Fabricator talked to the pt's RN who said the pt is like that. Auto Mechanics Teacher said she is aware and has been talking to the pt's mother and trying to place the pt in a facility. FUTURE SPIRITUAL CARE PLANS Will See: As Needed Only Follow-up Notes: I could not inform the pt of Salt Maker availability because the pt was out of control and not understanding who Spiritual Care was even though I told her numerous times. Salt Maker Signature: Dejuan Cox Student To contact the Spiritual Care Department: Please call [phone] or Page the On-Call Salt Maker at pager [phone] Thank you for the opportunity to be of service. This is an electronically created document. IF PRINTED, PLEASE DO NOT REMOVE FROM THE CHART OR MODIFY PRINTED COPY. NURSING PROG Observed: 04/18/2018 Status: COMPLETED Source: [place] 5:58 AM CLINIC OTHER CAMPUS REPOSITORY HNO ID: [id number] Author: Jewel (Rn) NAHUM Noble Service: Nursing Author Type: Registered Nurse Type: Nursing Progress Note Filed: 04/18/2018 5:59 AM Note Text: Pt refused blood work and morning medication synthroid, pt thinks that we are attempting to poison her. ALLIED HEALTH Observed: 04/17/2018 Status: COMPLETED Source: [place] 2:[address] [facility] OTHER [place] REPOSITORY HNO ID: [id number] Author: Zeny Thayer [facility] Service: (none) Author Type: (none) Type: Allied [...] Will continue to follow. 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 (Med.Supl.;Non- Drugs) PRN [...] JULIA FARRELLG Observed: 04/17/2018 Status: COMPLETED Source: [place] 11:15 AM [facility] REPOSITORY HNO ID: [id number] Author: Jamie Blanco RN Service: Nursing Author Type: Registered Nurse Type: Nursing Progress Note Filed: 04/17/2018 12:15 PM Note Text: Nursing Progress Note Patient Name: Ifeoma Ashraf Patient Location: [place] [address] [address]* Daily Note:Woke patient up attempted to do my assessment and administer morning medications. Pt yelled at me to get out of the room. Patient did not receive medications. Notified physician. This note was completed by: Jamie Blanco RN CASE MANAGEM Observed: 04/17/2018 Status: COMPLETED Source: [place] 10:40 AM [facility] REPOSITORY HNO ID: [id number] Author: Francy Kaur RN Service: Care Management Author Type: Registered Nurse Type: Care Mgt Progress Note Filed: 04/17/2018 10:41 AM Note Text: CARE MANAGEMENT PROGRESS NOTE SERVICE DATE: 04/17/2018 SERVICE TIME: 10:40 AM LOS: 10 days [facility] is not in network, Lina Cantu is full TCVM to [facility] to see if they can accept, will cont to follow. . SIGNATURE: Francy Kaur RN PATIENT NAME: Ifeoma Ashraf DATE: April 17, 2018 TIME: 10:40 AM PAGER/CONTACT #: [phone] NUTRITION Observed: 04/17/2018 Status: COMPLETED Source: [place] 8:51 AM [facility] REPOSITORY HNO ID: [id number] Author: Domi Airta Service: Nutrition Therapy Author Type: Registered Dietitian [...] Lactic acidosis 04/07/2018 - SDH (subdural hematoma) ([facility]) 04/07/2018 - Coagulopathy ([facility]) 04/07/2018 - Encephalopathy 04/07/2018 - Obesity, Class II, BMI 35-39.9 04/07/2018 - LV dysfunction 05/20/2010 - Obesity 05/20/2010 - Implantable cardioverter-defibrillator (ICD) in situ 10/13/2009 Overview Note: ICD-Device g [employer] Model 1211-36Q Serial Number [id number] Implant Date 10/10/2009 Implanted By AZEEM Hong _ Lead1 Mfg [employer] Model 7121Q Serial Number [id number] Implant Date 10/10/2009 PAST MEDICAL HISTORY Diagnosis [...] tab(s) 9 mg 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 (Med.Supl.;Non- Drugs) PRN [...] (Active) Stage Injury 1 04/16/2018 9:30 PM Superintendent Storage Area Related Pressure Injury No 04/16/2018 9:30 PM Dressing Status Intact 04/16/2018 9:30 PM Frequency of Dressing Change Every 3 Days 04/16/2018 9:30 PM Dressing Change Due 04/18/18 04/16/2018 9:30 PM Dressing/Treatment Type Foam-Adhesive 04/16/2018 9:30 PM Drainage Description None 04/16/2018 8:32 AM Drainage Amount None 04/16/2018 8:32 AM Odor No 04/16/2018 8:32 AM Wound Surface Color [place] 04/16/2018 8:32 AM Surrounding Skin Intact 04/16/2018 [...] April 17, 2018 TIME: 8:52 AM PAGER: [phone] CONSULT PROG Observed: 04/17/2018 Status: COMPLETED Source: [place] 8:42 AM CLINIC OTHER CAMPUS REPOSITORY HNO ID: [id number] Author: Divina Srinivasan Service: Neurology Author Type: [...] 1047 HEMOGRAM Collected: 04/17/2018 Status: F Source: [facility] 6:20 AM HEALTH SYSTEM REPOSITORY TYPE CODE [...] MPV 10.5 Performed By: #### CBC1 #### [facility] [address] [place] [address] AMMONIA Collected: 04/17/2018 Status: F Source: [facility] 6:20 AM HEALTH SYSTEM REPOSITORY TYPE CODE TESTS RESULT OUT OF REFERENCE UNITS RANGE LAB MARIMAR(LOINC 11-32 umol/L ) Ammonia 29 Performed By: #### MARIMAR #### [place] [address] MAGNESIUM BLOOD Collected: 04/17/2018 Status: F Source: [facility] 6:20 AM HEALTH SYSTEM REPOSITORY TYPE CODE TESTS RESULT OUT OF REFERENCE UNITS RANGE LAB MAG(LOINC) 1.6-2.6 mg/dL Low Magnesium Blood 1.5 Performed By: #### MAG #### [place] [address] PHOSPHORUS BLOOD Collected: 04/17/2018 Status: F Source: [facility] 6:20 AM HEALTH SYSTEM REPOSITORY TYPE CODE TESTS RESULT OUT OF REFERENCE UNITS RANGE LAB PHOS(LOINC 2.5-4.9 mg/dL ) Phosphorus Blood 3.3 Performed By: #### PHOS #### [place] [address] BASIC PANEL Collected: 04/17/2018 Status: F Source: [facility] 6:20 AM HEALTH SYSTEM REPOSITORY TYPE CODE [...] Gap 11 Performed By: #### P8 #### [facility] [address] [place] [address] CONSULT PROG Observed: 04/16/2018 Status: COMPLETED Source: [place] 12:05 PM CLINIC OTHER CAMPUS REPOSITORY HNO ID: [id number] Author: Robyn Chavez (Pa) Service: Neurology Author Type: Physician Solid Waste Facility Operator Type: Consult Progress Note Filed: 04/16/2018 [...] #: PROGRESS Observed: 04/16/2018 Status: COMPLETED Source: [place] 9:55 AM CLINIC OTHER CAMPUS REPOSITORY O ID: [id number] Author: Maricruz Manrique Service: Hospital Medicine Author Type: Physician Type: Progress Notes Filed: 04/16/2018 7:24 PM Note Text: INTERNAL MEDICINE PROGRESS NOTE SERVICE DATE: 04/16/2018 SERVICE TIME: 9:55 AM ADMITTING PHYSICIAN: Agapito Mckenna) Keshawn Subjective CHIEF COMPLAINT: f/u medical issues listed below Current Facility-Administered Medications: melatonin 9 mg tab(s) 9 mg 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 (Med.Supl.;Non- Drugs) PRN [...] #: HEMOGRAM Collected: 04/16/2018 Status: F Source: [facility] 8:45 AM HEALTH SYSTEM REPOSITORY TYPE CODE [...] MPV 10.4 Performed By: #### CBC1 #### [place] [address] BASIC PANEL Collected: 04/16/2018 Status: F Source: [facility] 8:45 AM HEALTH SYSTEM REPOSITORY TYPE CODE [...] Gap 9 Performed By: #### P8 #### [place] [address] MAGNESIUM BLOOD Collected: 04/16/2018 Status: F Source: [facility] 8:45 AM HEALTH SYSTEM REPOSITORY TYPE CODE TESTS RESULT OUT OF REFERENCE UNITS RANGE LAB MAG(LOINC) 1.6-2.6 mg/dL Low Magnesium Blood 1.2 Performed By: #### MAG #### [place] [address] NURSING PROG Observed: 04/16/2018 Status: COMPLETED Source: [place] 3:03 AM CLINIC OTHER CAMPUS REPOSITORY HNO ID: [id number] Author: Marzena (RnHenrik Mitchell RN Service: Nursing Author Type: Registered Nurse Type: Nursing Progress Note Filed: 04/16/2018 3:04 AM Note Text: Pt is calm but still talking to herself. Sound physician would like to be paged if pt gets agitated again. NURSING PROG Observed: 04/16/2018 Status: COMPLETED Source: [place] 1:00 AM [facility] REPOSITORY HNO ID: [id number] Author: Marzena MckeonRn) NAHUM Mitchell Service: Nursing Author Type: Registered Nurse Type: [...] sound PROGRESS Observed: 04/15/2018 Status: COMPLETED Source: [place] 3:41 PM [facility] REPOSITORY HNO ID: [id number] Author: Lakisha Smith MD Service: Hospital Medicine Author Type: Physician Type: Progress Notes Filed: 04/15/2018 3:48 PM Note Text: DEPARTMENT OF HOSPITAL MEDICINE PROGRESS NOTE SERVICE DATE: 04/15/2018 SERVICE TIME: 3:41 PM Hospital Medicine/Primary Attending: Lakisha Smith MD NIGHT AND WEEKEND COVERAGE: After 7pm please page [phone] CHIEF COMPLAINT: f/u for altered sensorium SUBJECTIVE: [...] (K-DUR, KLOR-CON) 40 mEq ORAL QID 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 (Med.Supl.;Non- Drugs) PRN [...] SIGNATURE: Lakisha Smith MD PATIENT NAME: Ifeoma Ashraf DATE: April 15, 2018 TIME: 3:41 PM PAGER/CONTACT #: [phone] PROGRESS Observed: 04/15/2018 Status: COMPLETED Source: [place] 11:56 AM CLINIC OTHER CAMPUS REPOSITORY HNO ID: [id number] Author: Louie Crane Service: Radiology Author Type: Physician Type: Progress Notes Filed: 04/15/2018 11:57 AM Note Text: Radiology Status post LP under fluoroscopy without immediate complication Opening pressure: qualitatively well wnl Fluid: approximately 10-12 ml clear CSF to lab Louie Crane MD LUMBAR PUNCTURE Observed: 04/15/2018 Status: F Source: [place] [employer] [facility] 11:45 AM HEALTH SYSTEM REPOSITORY Performed at [facility] APPROVED BY: Louie Crane MD [...] PROTEIN CSF Collected: 04/15/2018 Status: F Source: [facility] 11:30 HEALTH SYSTEM REPOSITORY TYPE CODE TESTS RESULT OUT OF REFERENCE UNITS RANGE LAB CSFPR(LOINC 15-45 mg/dL ) High Protein CSF 49 Performed By: #### CSFPR #### [place] [address] GLUCOSE,CSF Collected: 04/15/2018 Status: F Source: [facility] 11:[address] [place] [address] SYSTEM REPOSITORY TYPE CODE TESTS RESULT OUT OF RANGE REFERENCE UNITS LAB CSFGL(LOINC 60-70% of blood mg/dl ) sugar. 66 Glucose,CSF Performed By: #### CSFGL #### [place] [address] CSF CELL COUNT/DIFF Collected: 04/15/2018 Status: F Source: [facility] 11:[facility] REPOSITORY TYPE CODE TESTS RESULT [...] < 6. Performed By: #### CSFCD #### [place] [address] VDRL, CSF Collected: 04/15/2018 Status: F Source: [facility] 11:[address] [place] [address] SYSTEM REPOSITORY TYPE CODE TESTS RESULT OUT OF RANGE REFERENCE UNITS LAB VDRLX(LOINC ) VDRL, CSF SEE BELOW Result Comment: VDRL on CSF Non Reactive NR DILS Performing Laboratory: [facility] [address] [place] [address] Performed By: #### VDRLX #### [place] [address] ENTEROVIRUS PCR Collected: 04/15/2018 Status: F Source: [facility] 11:30 AM HEALTH SYSTEM REPOSITORY TYPE CODE TESTS RESULT OUT OF REFERENCE UNITS RANGE LAB ENTPX(LOIN C) Enterovirus PCR SEE BELOW Result Comment: Enterovirus PCR SEE BELOW Negative for Enterovirus by PCR. This test was developed and its performance characteristics determined by [facility] [place] ([facility]). It has not been cleared or approved by the FDA. [facility] is regulated under CLIA as qualified to perform high-complexity testing. This test is used for clinical purposes. It should not be regarded as investigational or for research. Enterovirus PCR Srce SEE BELOW Cerebrospinal Fluid Performing Laboratory: [place] [address] Performed By: #### ENTPX #### [place] [address] HSV BY PCR, CSF Collected: 04/15/2018 Status: F Source: [facility] 11:30 [facility] REPOSITORY TYPE CODE TESTS RESULT OUT OF RANGE REFERENCE UNITS LAB HSDNX(LOINC ) HSV by SEE BELOW PCR, CSF Result Comment: HSV PCR Spec Source SEE BELOW Cerebrospinal Fluid HSV-1 SEE BELOW Negative for Herpes Simplex Virus Type 1 by PCR HSV-2 SEE BELOW Negative for Herpes Simplex Virus Type 2 by PCR Performing Laboratory: [facility] [address] [place] [address] Performed By: #### HSDNX #### [place] [address] [place] CSF,PCR Collected: 04/15/2018 Status: F Source: [facility] 11:30 [facility] REPOSITORY TYPE CODE TESTS RESULT [...] serology for clinical diagnosis. Test Performed by [employer], [employer] [facility], [address] [place], [place] Larry Ly M.D., Ph.D., Director of Laboratories , SHUKRI [id number] Performed By: #### WNPCQ #### [place] [address] CONSULT PROG Observed: 04/15/2018 Status: COMPLETED Source: [place] 10:27 AM CLINIC OTHER CAMPUS REPOSITORY HNO ID: [id number] Author: Robyn Engle) Kathy Service: Neurology Author Type: Physician Solid Waste Facility Operator Type: Consult Progress Note Filed: 04/15/2018 [...] VITAMIN B12 Collected: 04/15/2018 Status: F Source: [facility] 10:04 AM HEALTH SYSTEM REPOSITORY TYPE CODE TESTS RESULT OUT OF REFERENCE UNITS RANGE LAB B12(LOINC) 193-986 pg/mL High Vitamin B12 1455 Performed By: #### B12 #### [place] [address] THYROGLOBULIN AB Collected: 04/15/2018 Status: F Source: [facility] 10:04 HEALTH SYSTEM REPOSITORY TYPE CODE TESTS RESULT OUT OF REFERENCE UNITS RANGE LAB TGAB2(LOIN 0.0-60.0 IU/ml C) Thyroglobulin Ab 16.5 Performed By: #### TGAB2 #### [facility] [address] [address] METHYLMALONIC ACID Collected: 04/15/2018 Status: F Source: [facility] 10:04 [facility] REPOSITORY TYPE CODE TESTS RESULT OUT OF REFERENCE UNITS RANGE LAB MMAX(LOINC ) Methylmalonic Acid SEE BELOW Result Comment: Methylmalonic Acid 318 79-376 nmol/L This test was developed and its performance characteristics determined by [facility] Pathology and Laboratory Medicine [place] ([facility]). It has not been cleared or approved by the FDA. [facility] is regulated under CLIA as qualified to perform high-complexity testing. This test is used for clinical purposes. It should not be regarded as investigational or for research. Performing Laboratory: [facility] [employer] [address] [place] [address] Performed By: #### MMAX #### [facility] [address] [address] LAMOTRIGINE Collected: 04/15/2018 Status: F Source: [facility] 10:04 [facility] REPOSITORY TYPE CODE TESTS RESULT OUT OF REFERENCE UNITS RANGE LAB LAMOX(LOIN C) Lamotrigine SEE BELOW Result Comment: Lamotrigine 20.7 H 1-13 ug/mL This test was developed and its performance characteristics determined by [facility] Pathology and Laboratory Medicine [place] ([facility]). It has not been cleared or approved by the FDA. [facility] is regulated under CLIA as qualified to perform high-complexity testing. This test is used for clinical purposes. It should not be regarded as investigational or for research. Performing Laboratory: [facility] [employer] [address] [id number] Performed By: #### LAMOX #### [facility] [address] [place] [address] HEMOGRAM Collected: 04/15/2018 Status: F Source: [facility] 4:31 [facility] REPOSITORY TYPE CODE TESTS RESULT [...] MPV 10.4 Performed By: #### CBC1 #### [place] [address] BASIC PANEL Collected: 04/15/2018 Status: F Source: [facility] 4:31 AM HEALTH SYSTEM REPOSITORY TYPE CODE [...] Gap 13 Performed By: #### P8 #### [place] [address] CYTOLOGY, MEDICAL Observed: 04/15/2018 Status: F Source: [facility] 12:00 AM HEALTH SYSTEM REPOSITORY Test performed at [place] [address] NAME: IFEOMA ASHRAF REQUESTING: LISETTE PARTIDA DIAGNOSIS [...] of 1 Performed By: #### CYTOM #### [place] [address] NURSING PROG Observed: 04/14/2018 Status: COMPLETED Source: [place] 4:34 PM CLINIC OTHER CAMPUS REPOSITORY HNO ID: [id number] Author: Poppy (Nahum) NAHUM Maher Service: Nursing Author Type: Registered Nurse Type: Nursing Progress Note Filed: 04/14/2018 4:37 PM Note Text: Nursing Progress Note Patient Name: Ifeoma Ashraf Patient Location: [place] [address] [address]* Daily Note: S/W Pt Mother Morro. She would like to know what is possibly causing the high ammonia level. She would like updates from the MD 04/15. #[phone]. Dr Garcia text page also. This note was completed by: Poppy Maher, NAHUM ALL[facility] HE[facility] Observed: 04/14/2018 Status: COMPLETED Source: [place] 1:12 PM CLINIC OTHER CAMPUS REPOSITORY HNO ID: [id number] Author: Grace Emerson (Rt) Service: Radiology Author Type: Partner Type: Allied Health Filed: 04/14/2018 1:13 PM Note Text: NEW ICD DEVICE: implanted 11/10/[address] Single chamber--Model: CD 1357-40Q Serial #:[id number] Conditional for MRI ? Still using OLD leads from prev ICD: [employer] medical Model:7121Q Serial #: [id number] implanted 10/10/2009 THESE ARE NOT APPROVED FOR MRI ? Info from [employer]: SCANNED INTO RIS Najma Hawk CNP aware. CONSULT PROG Observed: 04/14/2018 Status: COMPLETED Source: [place] 12:[address] [facility] OTHER [place] REPOSITORY HNO ID: [id number] Author: Robyn Chavez (Pa) Service: Neurology Author Type: Physician Solid Waste Facility Operator Type: Consult Progress Note Filed: 04/14/2018 [...] W/O CONTRAST Observed: 04/14/2018 Status: F Source: [facility] 12:35 PM HEALTH SYSTEM REPOSITORY Performed at [facility] APPROVED BY: Louie Crane MD [...] effect. PROGRESS Observed: 04/14/2018 Status: COMPLETED Source: [place] 11:15 AM CLINIC OTHER CAMPUS REPOSITORY HNO ID: [id number] Author: Janusz Garcia Service: Hospital Medicine Author [...] CASE MANAGEM Observed: 04/14/2018 Status: COMPLETED Source: [place] 10:31 AM CLINIC OTHER CAMPUS REPOSITORY HNO ID: [id number] Author: Francy (Rn) NAHUM Kaur Service: Care Management Author Type: Registered Nurse Type: Care Mgt Progress Note Filed: 04/14/2018 10:34 AM Note Text: CARE MANAGEMENT PROGRESS NOTE SERVICE DATE: 04/14/2018 SERVICE TIME: 10:32 AM LOS: 7 days [facility] is full, TC to pts mother who gave ths CM a list [facility] [facility], 2nd [facility], 3rd [facility] and 4th [facility]. . SIGNATURE: Francy Kaur RN PATIENT NAME: Ifeoma Ashraf DATE: April 14, 2018 TIME: 10:31 AM PAGER/CONTACT #: [phone] URINALYSIS, REFLEX Collected: 04/14/2018 Status: F Source: [facility] 10:02 AM HEALTH SYSTEM REPOSITORY TYPE CODE [...] to confirm). LAB SPG(LOINC) 1.005-1.030 Specific 1.014 [place], Ur LAB PHUR(LOINC) 5.0-8.0 pH,Urine 8.0 LAB [...] laboratory criteria. Performed By: #### URIN #### [facility] [address] [address] HEMOGRAM Collected: 04/14/2018 Status: F Source: [facility] 10:02 HEALTH SYSTEM REPOSITORY TYPE CODE TESTS [...] MPV 10.7 Performed By: #### CBC1 #### [place] [address] BASIC PANEL Collected: 04/14/2018 Status: F Source: [facility] 10:02 HEALTH SYSTEM REPOSITORY TYPE CODE TESTS [...] Gap 10 Performed By: #### P8 #### [facility] [address] [place] [address] AMMONIA Collected: 04/14/2018 Status: F Source: [facility] 10:02 HEALTH SYSTEM REPOSITORY TYPE CODE TESTS RESULT OUT OF REFERENCE UNITS RANGE LAB MARIMAR(LOINC 11-32 umol/L ) High alert Ammonia 42 Performed By: #### MARIMAR #### [facility] [address] [place] [address] DIGOXIN,RANDOM Collected: 04/14/2018 Status: F Source: [facility] 10:02 AM HEALTH SYSTEM REPOSITORY TYPE CODE TESTS RESULT OUT OF RANGE REFERENCE UNITS LAB DIGOR(LOINC 0.80-2.00 ng/ml ) 0.87 Digoxin,[place] om Performed By: #### DIGOR #### [facility] [address] [place] [id number] NURSING PROG Observed: 04/14/2018 Status: COMPLETED Source: [place] 7:27 AM [facility] REPOSITORY HNO ID: [id number] Author: Arleth Sharpe) Didier Service: Nursing Author Type: Registered Nurse Type: Nursing Progress Note Filed: 04/14/2018 7:28 AM Note Text: Nursing Progress Note Patient Name: Ifeoma Ashraf Patient Location: [place] [address] [address]* Daily Note: Patient refusing morning labs, blood sugar checks, and AM vitals. This note was completed by: Arleth Velásquez RN PROGRESS Observed: 04/14/2018 Status: COMPLETED Source: [place] 2:55 AM [facility] REPOSITORY HNO ID: [id number] Author: Arleth Sharpe) [place]ier Service: Nursing Author Type: Registered Nurse Type: Progress Notes Filed: 04/14/2018 2:56 AM Note Text: Unable to obtain straight cath specimen. Patient refusing to cooperate. ALLIED HEALTH Observed: 04/13/2018 Status: COMPLETED Source: [place] 3:19 PM [facility] REPOSITORY HNO ID: [id number] Author: Antonella MckeonRt) Grace Moore Service: Radiology Author Type: Partner Type: Allied Health Filed: 04/13/2018 3:25 PM Note Text: NEW ICD DEVICE: implanted 11/10/2017 [employer] Single chamber--Model: CD 1357-40Q Serial #:[id number] Conditional for MRI Still using OLD leads from prev ICD: [employer] medical Model:7121Q Serial #: [id number] implanted 10/10/2009 THESE ARE NOT APPROVED FOR MRI Info from [employer]: SCANNED INTO RIS THERAPY NT Observed: 04/13/2018 Status: COMPLETED Source: [place] 2:28 PM CLINIC OTHER CAMPUS REPOSITORY HNO ID: [id number] Author: Tara Ching/Leela Hurley Service: Occupational Therapy Author Type: Occupational Therapist Type: Therapy (PT/OT/Speech/Resp) Filed: 04/13/2018 2:33 PM Note Text: Occupational Therapy Evaluation SERVICE DATE: 04/13/2018 SERVICE TIME: 1330 to 1405 ROOM: [place] [address] Recommended Discharge Disposition: Subacute/SNF Justification For Post [...] Functions and Awareness Interventions Provided: Evaluation;Cognitive Training (61752 or G0515) $ Evaluation-Moderate (24491) Billed Units: 1 unit Cognitive Training (G0515) [...] Follows Commands: 1-step Commands Memory Deficits: Short Term;Check Examiner (difficulty with recall) Executive Function Deficits: Sequencing;Problem [...] CONSULT PROG Observed: 04/13/2018 Status: COMPLETED Source: [place] 12:57 PM CLINIC OTHER CAMPUS REPOSITORY HNO ID: [id number] Author: Najma Hawk Service: Neurology Author Type: Nurse Practitioner Type: Consult Progress Note Filed: 04/13/2018 12:58 PM Note Text: 2 weeks of progressive encephalopathy prior to admit. No acute intracranial findings, no seizures but she remains encephalopathic. Will attempt MRI B with contrast. PROGRESS Observed: 04/13/2018 Status: COMPLETED Source: [place] 12:41 PM CLINIC OTHER CAMPUS REPOSITORY HNO ID: [id number] Author: Janusz Garcia Service: Hospital Medicine Author [...] hypokalemia- replace. ? Plan for SNF [place] SIGNATURE: Janusz Garcia MD PATIENT NAME: Ifeoma Ashraf DATE: April 13, 2018 TIME: 12:41 PM PAGER: D/w pt's mom( Morro [phone]) and Pt' friend bed side. Pe them pt had no memory issues prior to admission. p more awake alert now with family present but still confused. D/w neuro SOCIAL MEDIA DESIGNER earlier. ordeed for MRI tonie but pt cannot have an MRI 2/2 old pacemaker leads . ? Rpt CT head. f/u [facility] Observed: 04/13/2018 Status: COMPLETED Source: [place] 12:40 PM CLINIC OTHER CAMPUS REPOSITORY HNO ID: [id number] Author: Radha (Rn) NAHUM Garcia Service: Nursing [...] THERAPY NT Observed: 04/13/2018 Status: COMPLETED Source: [place] 12:04 PM [facility] REPOSITORY HNO ID: [id number] Author: Tara (Otr/L) Mei Service: Occupational Therapy Author Type: Occupational Therapist Type: Therapy (PT/OT/Speech/Resp) Filed: 04/13/2018 12:48 PM Note Text: OCCUPATIONAL THERAPY MISSED VISIT SERVICE DATE: 04/13/2018 SERVICE TIME: 1058 to 1100 ROOM: [place] [address] Attempted Evaluation. Patient not seen due to Sleeping. SIGNATURE: Tara Hurley OTR/L PATIENT NAME: Ifeoma Ashraf DATE: April 13, 2018 TIME: 12:47 PM CASE MANAGEM Observed: 04/13/2018 Status: COMPLETED Source: [place] 11:03 AM [facility] REPOSITORY HNO ID: [id number] Author: Francy Kaur RN Service: Care Management [...] 13, 2018 TIME: 11:03 AM PAGER/CONTACT #: [phone] NUTRITION Observed: 04/13/2018 Status: COMPLETED Source: [place] 10:30 AM [facility] REPOSITORY HNO ID: [id number] Author: Domi Arita Service: Nutrition Therapy Author [...] Lactic acidosis 04/07/2018 - SDH (subdural hematoma) ([facility]) 04/07/2018 - Coagulopathy (HCC) 04/07/2018 - Encephalopathy 04/07/2018 - Obesity, Class II, BMI 35-39.9 04/07/2018 - LV dysfunction 05/20/2010 - Obesity 05/20/2010 - Implantable cardioverter-defibrillator (ICD) in situ 10/13/2009 Overview Note: ICD-Device Mfg [employer] Medical Model 1211-36Q Serial Number [id number] Implant Date 10/10/2009 Implanted By Flavio Delgadillo BLANK _ [employer]1 [employer] Medical Model 7121Q Serial Number [id number] Implant Date 10/10/2009 PAST MEDICAL HISTORY Diagnosis [...] (289 lb) 07/27/2010 135.2 kg (298 lb) [place] Body Weight: 59.1kg Resting Metabolic Rate: 1605 Estimated kilocalorie needs: 7285-0448 kilocalories determined by 25-30 kcal/kg Estimated protein needs: 59-71 grams determined by 1.0-1.2 g/kg [place] weight Estimated fluid needs: 2000 milliliters based [...] Adhesives on tape Current Facility-Administered Medications: 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 (Med.Supl.;Non- Drugs) PRN [...] (Active) Stage Injury 1 04/11/2018 7:05 PM Superintendent Storage Area Related Pressure Injury No 04/11/2018 7:05 PM Dressing Status Clean, Dry AND Intact 04/11/2018 7:05 PM Frequency of Dressing Change Every 3 Days;As Needed 04/11/2018 7:05 PM Dressing Change Due 04/14/18 04/11/2018 7:05 PM Dressing/Treatment Type Foam-Adhesive 04/11/2018 7:05 PM Drainage Description None 04/11/2018 10:20 AM Drainage Amount None 04/11/2018 10:20 AM Odor No 04/11/2018 10:20 AM Wound Surface Color [place] 04/11/2018 10:20 AM Surrounding Skin Intact 04/11/2018 10:20 AM Number of days: 2 MNT Billing Type: Initial Assess/15 min 4 units SIGNATURE: Domi Arita RD PATIENT NAME: Ifeoma Ashraf DATE: April 13, 2018 TIME: 10:30 AM PAGER: [phone] HEMOGRAM Collected: 04/13/2018 Status: F Source: [facility] 3:45 AM HEALTH SYSTEM REPOSITORY TYPE CODE [...] MPV 10.8 Performed By: #### CBC1 #### [facility] [address] [place] [address] BASIC PANEL Collected: 04/13/2018 Status: F Source: [facility] 3:45 AM HEALTH SYSTEM REPOSITORY TYPE CODE [...] Gap 9 Performed By: #### P8 #### [facility] [address] [place] [address] NURSING PROG Observed: 04/12/2018 Status: COMPLETED Source: [place] 5:24 PM [facility] REPOSITORY HNO ID: [id number] Author: Angelita (Rn) NAHUM Austin Service: Nursing Author Type: Registered Nurse Type: Nursing Progress Note Filed: 04/12/2018 5:30 PM Note Text: Nursing Progress Note Patient Name: Ifeoma Ashraf Patient Location: [place] [address] [address]* Daily Note: Care management gave mother of patient a list of facilities to chose from. First choice is [facility]. 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 She had stem cell therapy and mom [...] gait and mobility-other Interventions Provided: Evaluation;Therapeutic Activity (67555) $ Evaluation-Moderate (13251) Billed Units: 1 unit Therapeutic Activity (25476) Treatment Minutes: 30 2 units Skilled Intervention(s): [...] PM PROGRESS Observed: 04/12/2018 Status: COMPLETED Source: [place] 1:54 PM CLINIC OTHER CAMPUS REPOSITORY HNO ID: [id number] Author: Janusz Garcia Service: Hospital Medicine Author [...] replace. Advance diet Plan for SNF at [place] SIGNATURE: Janusz Garcia MD PATIENT NAME: Ifeoma Ashraf DATE: April 12, 2018 TIME: 1:54 PM PAGER: PROGRESS Observed: 04/12/2018 Status: COMPLETED Source: [place] 12:07 PM CLINIC OTHER CAMPUS REPOSITORY HNO ID: [id number] Author: Rubén Dye Service: Cardiovascular Disease Author [...] pulses present. MEDICATIONS: Current hospital medications: 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 (Med.Supl.;Non- Drugs) PRN [...] core measures. Follows with Dr. Pedersen at [facility] for cardiac care as outpatient. F/u once [...] CASE MANAGEM Observed: 04/12/2018 Status: COMPLETED Source: [place] 12:01 PM [facility] REPOSITORY HNO ID: [id number] Author: Francy (Rn) NAHUM Kaur Service: Care Management Author Type: Registered Nurse Type: Care Mgt Progress Note Filed: 04/12/2018 12:01 PM Note Text: CARE MANAGEMENT PROGRESS NOTE SERVICE DATE: 04/12/2018 SERVICE TIME: 12:01 PM LOS: 5 days Still awaiting choice, will cont to follow. . SIGNATURE: Francy Kaur RN PATIENT NAME: Ifeoma Ashraf DATE: April 12, 2018 TIME: 12:01 PM PAGER/CONTACT #: [phone] ALLIED HEALTH Observed: 04/12/2018 Status: COMPLETED Source: [place] 11:07 AM [facility] REPOSITORY HNO ID: [id number] Author: Dejuan Cox Student Service: (none) Author Type: (none) Type: Allied Health Filed: 04/12/2018 11:58 AM Note Text: SPIRITUALCARE Spiritual Care Visit- Brief Note Name: Ifeoma Ashraf Date: April 12, 2018 Notes: Pt was sleeping when I went to visit with her. I left a Spiritual Care card at her bedside and will try to visit the pt later. Salt Maker Signature: Dejuan Cox Student To contact the Spiritual Care Department: Please call [phone] or Page the On-Call Salt Maker at pager [phone] Thank you for the opportunity to be of service. This is an electronically created document. IF PRINTED, PLEASE DO NOT REMOVE FROM THE CHART OR MODIFY PRINTED COPY. HEMOGRAM Collected: 04/12/2018 Status: F Source: [facility] 2:30 AM HEALTH SYSTEM REPOSITORY TYPE CODE [...] MPV 11.1 Performed By: #### CBC1 #### [facility] [address] [place], [place] [address] BASIC PANEL Collected: 04/12/2018 Status: F Source: [facility] 2:30 AM HEALTH SYSTEM REPOSITORY TYPE CODE [...] Gap 11 Performed By: #### P8 #### [place] [address] PROTIME Collected: 04/12/2018 Status: F Source: [facility] 2:30 AM HEALTH SYSTEM REPOSITORY TYPE CODE TESTS RESULT OUT OF REFERENCE UNITS RANGE LAB PTI(LOINC) 9.3-11.9 sec Prothrombin High Time 14.8 LAB INR(LOINC) INR 1.47 Result Comment: Standard Therapy 2.0-3.0 High Dose 2.5-3.5 Performed By: #### PT #### [place] [address] CASE MANAGEM Observed: 04/11/2018 Status: COMPLETED Source: [place] 3:09 PM CLINIC OTHER CAMPUS REPOSITORY HNO ID: [id number] Author: Francy (Nahum) NAHUM Kaur Service: Care [...] 11, 2018 TIME: 3:09 PM PAGER/CONTACT #: [phone] 12 LEAD ELECTROCARDIOGRAM Observed: 04/11/2018 Status: F Source: [place] 2:15 PM [facility] REPOSITORY [facility] Cardiovascular Services [address] [place] [address] 12 Lead EKG 04/06/18 1843 MR#: [id number] Acct: [id number] Name: Ifeoma Ashraf Rep #: [id number] : 1965 53 From: Boone Ch MD [...] ECG Confirmed by JING KING, BOONE ([id number]), dictionary editor ASHLI CHAN ([id number]) on 04/11/2018 2:14:50 PM Referred By: Oscar Chan Confirmed By:BOONE CH MD 04/11/18 1414 Date Boone Ch MD CC: Oscar Chan MD; Dejuan Bacon Signed ALLIED HEALTH Observed: 04/11/2018 Status: COMPLETED Source: [place] 1:15 PM CLINIC OTHER CAMPUS REPOSITORY HNO ID: [id number] Author: Zeny Thayer [place] Service: (none) Author Type: (none) Type: Allied [...] My Chains are Gone; Eye of the [place]; Fight Song; Three Little Birds; Here Comes [...] she felt so overwhelmed. SIGNATURE: Zeny Thayer [facility] PATIENT NAME: Ifeoma Ashraf DATE: April 11, 2018 TIME: 2:52 PM PAGER/CONTACT #: P: [phone] CASE MANAGEM Observed: 04/11/2018 Status: COMPLETED Source: [place] 10:[address] [facility] OTHER CAMPUS REPOSITORY HNO ID: [id number] Author: Francy (Rn) NAHUM Kaur Service: Care Management Author Type: Registered Nurse Type: Care Mgt Progress Note Filed: 04/11/2018 10:07 AM Note Text: CARE MANAGEMENT PROGRESS NOTE SERVICE DATE: 04/11/2018 SERVICE TIME: 10:07 AM LOS: 4 days Awaiting acceptance from [facility], will cont to follow . SIGNATURE: Francy Kaur RN PATIENT NAME: Ifeoma Ashraf DATE: April 11, 2018 TIME: 10:07 AM PAGER/CONTACT #: [phone] CONSULT Observed: 04/11/2018 Status: COMPLETED Source: [place] 9:[address] [facility] OTHER CAMPUS REPOSITORY HNO ID: [id number] Author: Chacorta Chance Service: Clinical Cardiology Author [...] her cardiac care at the main campus [facility]. She was admitted to [facility] with altered mental status (possible [...] Onset - Hypertension Mother - Heart Mother [place] - d/t sepsis from UTI - Diabetes [...] 11, 2018 TIME: 9:02 AM PAGER/CONTACT #: [phone] PROGRESS Observed: 04/11/2018 Status: COMPLETED Source: [place] 8:[address] [facility] OTHER CAMPUS REPOSITORY O ID: [id number] Author: Val Ortiz Service: Hospital Medicine Author Type: Physician Type: Progress Notes Filed: 04/11/2018 8:08 PM Note Text: DEPARTMENT OF HOSPITAL MEDICINE PROGRESS NOTE Patient Name: Ifeoma Ashraf Admission Date: 04/07/2018 Service Date: 04/11/2018 Service Time: 8:00 PM Hospital Medicine Attending: Val Ortiz MD. FACP ? 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 (Med.Supl.;Non- Drugs) PRN [...] systolic and diastolic CHF (congestive heart failure) ([facility]) Resolved Problems: * No resolved hospital problems. [...] -VTE prophylaxis 04/07/18 0230 pneumatic compression stockings ([place], [place]) 04/07/18 0215 vte pharmacologic prophylaxis contraindicated ([place]) 04/07/18 0215 activity - mobilize patient ([place] VTE Prophylaxis: VTE prophylaxis appropriate Treatment Team: Attending Provider: Val Ortiz Consulting: Karol Quintero Primary Service: Bart Coles Consulting: Negrito Ortiz MD. FACP 8:00 PM 04/11/2018 PROTIME Collected: 04/11/2018 Status: F Source: [facility] 6:39 AM HEALTH SYSTEM REPOSITORY TYPE CODE TESTS RESULT OUT OF REFERENCE UNITS RANGE LAB PTI(LOINC) 9.3-11.9 sec Prothrombin High Time 15.4 LAB INR(LOINC) INR 1.56 Result Comment: Standard Therapy 2.0-3.0 High Dose 2.5-3.5 Performed By: #### PT #### [facility] [address] [place] [address] HEMOGRAM Collected: 04/11/2018 Status: F Source: [facility] 6:39 [facility] REPOSITORY TYPE CODE TESTS RESULT [...] MPV 11.4 Performed By: #### CBC1 #### [facility] [address] [place] [address] BASIC PANEL Collected: 04/11/2018 Status: F Source: [facility] 6:39 AM HEALTH SYSTEM REPOSITORY TYPE CODE [...] Gap 10 Performed By: #### P8 #### [place] [address] PROGRESS Observed: 04/10/2018 Status: COMPLETED Source: [place] 8:10 PM CLINIC OTHER CAMPUS REPOSITORY O ID: [id number] Author: Val Ortiz Service: Hospital Medicine Author Type: Physician Type: Progress Notes Filed: 04/10/2018 8:19 PM Note Text: DEPARTMENT OF HOSPITAL MEDICINE PROGRESS NOTE Patient Name: Ifeoma Ashraf Admission Date: 04/07/2018 Service Date: 04/10/2018 Service Time: 8:13 PM Hospital Medicine Attending: Val Ortiz MD. FACP ? NIGHT AND WEEKEND COVERAGE: After 7pm, please call cross cover pager #[phone] SUBJECTIVE: Pt seen and examined by the [...] -VTE prophylaxis 04/07/18 0230 pneumatic compression stockings ([place], [place]) 04/07/18 0215 vte pharmacologic prophylaxis contraindicated ([place]) 04/07/18 0215 activity - mobilize patient ([place] VTE Prophylaxis: VTE prophylaxis appropriate Treatment Team: Attending Provider: Val Ortiz Consulting: Karol Quintero Primary Service: [facility] [employer] Consulting: Negrito Ortiz MD. FACP 8:13 PM 04/10/2018 US DVT LOWER BILATERAL Observed: 04/10/2018 Status: F Source: [employer] 5:27 PM HEALTH SYSTEM REPOSITORY Performed at [facility] APPROVED BY: Chidi Perez MD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 [facility] REPOSITORY TYPE CODE TESTS RESULT OUT OF RANGE REFERENCE UNITS LAB L501.4010 <0.045 ng/mL High 0.046 TROPONIN-I Result Comment: TROPONIN-I EXPECTED VALUES <0.045 Negative 0.045 - 0.590 Consistent with Cardiac Damage > OR = 0.600 Critical Value Not every elevated troponin is indicative of UT. These values should be used with clinical judgement in examining the patient's clinical picture for diagnosis. To establish a diagnosis of UT versus myocardial injury, there must be a demonstrated rise and/or fall in the troponin values, in addition to ischemic symptoms, EKG changes, new regional wall motion abnormality, and/or angiographical evidence. PLEASE NOTE: REFERENCE RANGES EDITED 18 Performed By: #### L500.4050, L501.4010 #### [facility] [address] [place], [address] LACTIC ACID Collected: 04/06/2018 Status: F Source: [place] 7:30 PM [facility] REPOSITORY Order Comment: Yes/No query for Sepsis Lactate Rule Y TYPE CODE TESTS RESULT OUT OF REFERENCE UNITS RANGE LAB L503.6005 0.4-2.0 mmol/L High alert LACTIC ACID 6.7 Result Comment: Critical Result(s) Called Lisa RIVERA at: 20:23:22 04/06/2018 by: BRITTANY TORRES Performed By: #### L503.6005 #### [facility] [address] [place] [place], [address] PROTHROMBIN TIME W/INR Collected: 04/06/2018 Status: F Source: [place] 7:30 PM [facility] REPOSITORY TYPE CODE TESTS RESULT OUT OF RANGE REFERENCE UNITS LAB L300.4150 11.7-14.9 SECONDS High PROTIME 25.6 LAB L300.4200 Normal INR 2.3 Performed By: #### L300.3900, L300.4310 #### [facility] [address] [place], [address] PARTIAL THROMBOPLAST Collected: 04/06/2018 Status: F Source: [place] TIME 7:30 PM [facility] REPOSITORY TYPE CODE TESTS RESULT OUT OF REFERENCE UNITS RANGE LAB L300.4310 24.1-36.2 Seconds High PTT 41.3 Performed By: #### L300.3900, L300.4310 #### [facility] [address] [place], [address] Observed: 04/06/2018 Status: F Source: [place] CULTURE, BLOOD (WB) 7:30 PM [facility] HOSPITAL REPOSITORY BC No growth in 5 days. Performed By: #### M200.1000 #### [facility] [address] [place], [address] CHEST 1 VIEW Observed: 04/06/2018 Status: F Source: [place] (PORTABLE) 6:28 PM [facility] REPOSITORY [facility] Imaging Services [address] [place] [address] Chest 1 View (Portable) MR#: [id number] Acct: [id number] Name: IFEOMA ASHRAF Rep #: [id number] : 1965 F 53 From: Levy Lucas DO PCP: Sangeetha Irvin DO Status: PRE ER Study: Chest 1 View (Portable) Date of Exam: 04/06/18 Exam# [id number] Ordering Dr: Dejuan Bacon MD STUDY: X-RAY [...] , CC: Sangeetha Irvin DO; Dejuan Bacon C.O.D. Clerk: Signed BRAIN/HEAD WITHOUT Observed: 04/06/2018 Status: F Source: [place] CONTRAST 6:28 PM [facility] REPOSITORY [facility] Imaging Services [address] [place] [address] Brain/Head without Contrast MR#: [id number] Acct: [id number] Name: IFEOMA ASHRAF Rep #: [id number] : 1965 F 53 From: Levy Lucas DO PCP: Oscar Chan MD Status: REG ER Study: Brain/Head without Contrast Date of Exam: 04/06/18 Exam# [id number] Ordering Dr: Dejuan Bacon MD STUDY: CT [...] , CC: Oscar Chan MD; Dejuan Bacon C.O.D. Clerk: Signed BRAIN/HEAD WITHOUT Observed: 04/05/2018 Status: F Source: [place] CONTRAST 11:17 AM [facility] REPOSITORY [facility] Imaging Services [address] [place] [address] Brain/Head without Contrast MR#: [id number] Acct: [id number] Name: IFEOMA ASHRAF Rep #: [id number] : 1965 F 53 From: Levy Lucas DO PCP: Sangeetha Irvin DO Status: REG CLI Study: Brain/Head without Contrast Date of Exam: 04/05/18 Exam# [id number] Ordering Dr: Oscar Chan MD STUDY: CT [...] CC: Sangeetha Irvin DO; Oscar Chan MD C.O.D. Clerk: Signed CBC-COMPLETE BLOOD CNT Collected: 04/05/2018 Status: F Source: [place] NO DIFF 11:08 AM [facility] REPOSITORY TYPE CODE TESTS RESULT OUT [...] 10.6 Performed By: #### L100.0500, L100.4500 #### [facility] [address] [place], [place], [address] DIFFERENTIAL COMMENT Collected: 04/05/2018 Status: F Source: [place] 11:08 AM [facility] REPOSITORY TYPE CODE TESTS RESULT OUT OF RANGE REFERENCE UNITS LAB L100.4500 Normal SMEAR COMMENT COMMENT Result Comment: SLIDE SCANNED - 1+ ANISO NOTED. Performed By: #### L100.0500, L100.4500 #### [facility] [address] [place], [address] COMPREHENSIVE METABOLIC Collected: 04/05/2018 Status: F Source: [facility] 11:08 AM [facility] REPOSITORY TYPE CODE TESTS RESULT OUT [...] 9 GAP Performed By: #### L500.4050 #### [facility] [address] [place], [address] AMMONIA Collected: 04/05/2018 Status: F Source: [place] 11:08 AM [facility] REPOSITORY TYPE CODE TESTS RESULT OUT OF RANGE REFERENCE UNITS LAB L503.5510 11-32 umol/L Normal AMMONIA 20.0 Performed By: #### L503.5510 #### [facility] [address] [place], [address] CARDIOLOGY VISIT Observed: 03/31/2018 Status: F Source: [place] REPORT 3:14 PM [facility] REPOSITORY [facility] [address] [place] [address] OFFICE VISIT Date of Service: 03/31/18 MR#: [id number] Acct: [id number] Name: Ifeoma Ashraf Rep #: [id number] : 1965 Provider: Boone Ch MD Age/Sex: 53/F [place] [facility] [place]: Signed HPI HPI Chief Complaint: Follow-up [...] to the emergency department at [facility] on 03/08/2018 after being found unresponsive [...] care unit. She was eventually transferred to [facility]. 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, [address] CBC-COMPLETE BLOOD CNT Collected: 03/29/2018 Status: F Source: [place] NO DIFF 8:59 AM [facility] REPOSITORY TYPE CODE TESTS RESULT OUT [...] 10.9 Performed By: #### L100.0500, L100.4500 #### [facility] [address] [place], [place], [address] DIFFERENTIAL COMMENT Collected: 03/29/2018 Status: F Source: [place] 8:59 AM [facility] REPOSITORY TYPE CODE TESTS RESULT OUT OF RANGE REFERENCE UNITS LAB L100.4500 Normal SMEAR COMMENT SCANNED Result Comment: 1+ MACROCYTES 1+ HYPOCHROMIA Performed By: #### L100.0500, L100.4500 #### [facility] [address] [place], [place], [address] BASIC METABOLIC Collected: 03/29/2018 Status: F Source: [place] PROFILE (BMP) 8:59 AM [facility] REPOSITORY TYPE CODE TESTS RESULT OUT [...] 11 Performed By: #### L500.2500, L501.9520 #### [facility] [address] [facility] [place], [place], [address] THYROID STIM HORMONE Collected: 03/29/2018 Status: F Source: [place] (TSH) 8:59 AM [facility] REPOSITORY TYPE CODE TESTS RESULT OUT OF RANGE REFERENCE UNITS LAB L501.9520 0.358-3.74 uIU/mL High TSH 4.41 Performed By: #### L500.2500, L501.9520 #### [facility] [address] [facility] [place], [place], [address] Observed: 03/29/2018 Status: F Source: [place] CULTURE, URINE 8:59 AM [facility] REPOSITORY Urine Culture ORGANISM 1: Citrobacter freundii [place] Count >100,000 Citrobacter freundii: REACTION Amoxacillin/Clavulanic Acid $ 16 R Cefazolin $ >=64 R Cefepime $ <=1 S Ceftriaxone $ <=1 S Ciprofloxacin $ 0.5 S Ertapenim $$$ <=0.5 S Gentamicin $ <=1 S Imipenem *NF 1 S Levofloxacin $ 1 S Nitrofurantoin $ <=16 S Tobramycin $ <=1 S Trimethoprim/Sulfametho $ <=20 S (NF) indicates non-formulary drug at [facility]. Approval by Infectious Disease Specialist required before non-formulary drugs may be ordered and/or dispensed. Performed By: #### M100.0650 #### [facility] [address] [place], [place], [address] CBC-COMPLETE BLOOD CNT Collected: 03/24/2018 Status: F Source: [place] NO DIFF 6:45 AM [facility] REPOSITORY Order Comment: 415 TYPE CODE TESTS [...] 11.9 Performed By: #### L100.0500, L100.4500 #### [facility] [address] [place], [place], [address] DIFFERENTIAL COMMENT Collected: 03/24/2018 Status: F Source: [place] 6:45 AM [facility] REPOSITORY Order Comment: 415 TYPE CODE TESTS RESULT OUT OF RANGE REFERENCE UNITS LAB L100.4500 Normal SMEAR COMMENT COMMENT Result Comment: SLIDE SCANNED - 1+ ANISO. Performed By: #### L100.0500, L100.4500 #### [facility] [address] [place], [address] BASIC METABOLIC Collected: 03/24/2018 Status: F Source: [place] PROFILE (BMP) 6:45 AM [facility] REPOSITORY Order Comment: 415 TYPE CODE TESTS [...] GAP 11 Performed By: #### L500.2500 #### [facility] [address] [place], [place], [address] CBC-COMPLETE BLOOD CNT Collected: 03/17/2018 Status: F Source: [place] NO DIFF 5:33 AM [facility] REPOSITORY TYPE CODE TESTS RESULT OUT [...] 11.6 Performed By: #### L100.0500, L100.4500 #### [facility] [address] [place], [address] DIFFERENTIAL COMMENT Collected: 03/17/2018 Status: F Source: [place] 5:33 AM [facility] REPOSITORY TYPE CODE TESTS RESULT OUT OF RANGE REFERENCE UNITS LAB L100.4500 Normal SMEAR COMMENT Result Comment: ANISOCYTOSIS 2+ Performed By: #### L100.0500, L100.4500 #### [facility] [address] [place], [address] BASIC METABOLIC Collected: 03/17/2018 Status: F Source: [place] PROFILE (BMP) 5:33 AM [facility] REPOSITORY TYPE CODE TESTS RESULT OUT [...] GAP 10 Performed By: #### L500.2500 #### [facility] [address] [place], [address] DISCHARGE SUMMARY Observed: 03/14/2018 Status: F Source: [place] 5:30 PM [facility] REPOSITORY [facility] Medical Records Department [address] [place] [address] Discharge Summary 03/14/18 1702 MR#: [id number] Acct: [id number] Name: IFEOMA ASHRAF Rep #: [id number] : 1965 53 From: Colt Campos DO PCP: Sangeetha Irvin DO Status: ADM IN Y Location: [place] [address] Discharge Date and Diagnosis - Problem List [...] [address] Boone Ch-cardiology Dr. Patrick Willson-welding tester Operations: None Procedures: 2-D Echocardiogram Summary of Care Provided: The patient is a 53 year old F with a past medical history of severe nonischemic cardiomyopathy with a 25% ejection fraction, AICD, diabetes mellitus type 2, morbid obesity, history of diffuse large B-cell lymphoma, pulmonary hypertension, mitral regurgitation and tricuspid regurgitation who presented to the emergency department at [facility] on 03/08/2018 after being found unresponsive [...] precertification could be obtained for transfer to senior living. She was transferred to [facility] on 03/14/2018 for PT/OT/strengthening prior to returning [...] 2 weeks When: Psychologist as scheduled Disposition: [facility] facility [facility] Minutes spent on discharge:: 40 Patient Condition:: Stable Medical Necessity - Tobacco Use Smoking Status: Never smoker Tobacco Use: Non-smoker Meaningful Use Info Meaningful Use Diagnoses (Choose all that apply): None applicable Code Visit Inpatient E AND M: [id number] Disch Hosp 03/14/18 1730 <Electronically signed by Colt Camops DO> Date Colt Campos DO [facility] Signature (if applicable): Date CC: Kitty Campos; Boone Ch MD; Sangeetha Irvin DO Signed TRANSFER TO EXTENDED Observed: 03/14/2018 Status: F Source: [facility] 5:02 PM [facility] REPOSITORY [facility] Medical Records Department [address] [place] [id number] Transfer to Extended Care MR#: [id number] Acct: [id number] Name: IFEOMA ASHRAF Rep #: [id number] : 1965 53 From: Colt Campos DO PCP: Sangeetha Irvin DO Status: ADM IN IFEOMA ASHRAF (Patient) (Health Ins. Claim No.) (Day of Discharge to Facility) Certification of patient admission REQUIRED AT TIME OF ADMISSION. I CERTIFY THAT POST-HOSPITAL ECF SERVICES ARE REQUIRED TO BE GIVEN ON AN IN-PATIENT BASIS BECAUSE OF THE ABOVE NAMED PATIENT'S NEED FOR PRISON CARE ON A CONTINUING BASIS FOR THE CONDITION(S) FOR WHICH HE/SHE WAS RECEIVING IN-PATIENT HOSPITAL SERVICES PRIOR TO HIS/HER TRANSFER TO THE [facility]. 03/14/18 1702 <Electronically signed by Colt Gonzalez [...] Anemia Status: Chronic Current Visit: No (11) correction use of drug Status: Acute Current Visit: No (12) Abnormal electrocardiogram Status: Chronic Current Visit: No (13) Cardiomyopathy in other diseases classified elsewhere Status: Chronic Comment: EF is 15% Current Visit: No (14) Diffuse large B-cell lymphoma Status: Chronic Current Visit: No (15) S/P implantation of automatic cardioverter/defibrillator (AICD) Status: Chronic Comment: 10/06/[facility] Current Visit: No (16) Shortness of breath [...] 2 weeks When: Psychologist as scheduled 03/14/18 6592 <Electronically signed by Colt Campos DO> Date Colt Gonzalez Beth DO CC: Patrick Willson MD; Boone Ch MD; Sangeetha Irvin DO Signed BEDSIDE GLUCOSE Collected: 03/14/2018 Status: F Source: [place] 4:26 PM [facility] REPOSITORY TYPE CODE TESTS RESULT OUT OF REFERENCE UNITS RANGE LAB L501.080 70-110 mg/dL High BEDSIDE GLU 149 Result Comment: MANAGEMENT OF PATIENT CARE PER NURSING PROTOCOL Performed By: #### L501.080 #### [facility] Laboratory Point of Care [address] [place] [address] BEDSIDE GLUCOSE Collected: 03/14/2018 Status: F Source: [place] 11:05 AM [facility] REPOSITORY TYPE CODE TESTS RESULT OUT OF REFERENCE UNITS RANGE LAB L501.080 70-110 mg/dL High BEDSIDE GLU 124 Result Comment: MANAGEMENT OF PATIENT CARE PER NURSING PROTOCOL Performed By: #### L501.080 #### [facility] Point of Care [address] [place] [address] BEDSIDE GLUCOSE Collected: 03/14/2018 Status: F Source: [place] 6:53 AM [facility] REPOSITORY TYPE CODE TESTS RESULT OUT OF RANGE REFERENCE UNITS LAB L501.080 70-110 mg/dL Normal BEDSIDE GLU 109 Result Comment: MANAGEMENT OF PATIENT CARE PER NURSING PROTOCOL Performed By: #### L501.080 #### [facility] Point of Care [address] [place] [address] BEDSIDE GLUCOSE Collected: 03/13/2018 Status: F Source: [place] 9:30 PM [facility] REPOSITORY TYPE CODE TESTS RESULT OUT OF REFERENCE UNITS RANGE LAB L501.080 70-110 mg/dL High BEDSIDE GLU 196 Result Comment: Insulin Given MANAGEMENT OF PATIENT CARE PER NURSING PROTOCOL Performed By: #### L501.080 #### [facility] Point of Care [address] [place] [address] BEDSIDE GLUCOSE Collected: 03/13/2018 Status: F Source: [place] 4:12 PM [facility] REPOSITORY TYPE CODE TESTS RESULT OUT OF REFERENCE UNITS RANGE LAB L501.080 70-110 mg/dL High BEDSIDE GLU 136 Result Comment: MANAGEMENT OF PATIENT CARE PER NURSING PROTOCOL Performed By: #### L501.080 #### [facility] Point of Care [address] [place] [address] BEDSIDE GLUCOSE Collected: 03/13/2018 Status: F Source: [place] 12:35 PM [facility] REPOSITORY TYPE CODE TESTS RESULT OUT OF REFERENCE UNITS RANGE LAB L501.080 70-110 mg/dL High BEDSIDE GLU 176 Result Comment: MANAGEMENT OF PATIENT CARE PER NURSING PROTOCOL Performed By: #### L501.080 #### [facility] Point of Care [address] [place] [address] 12 LEAD ELECTROCARDIOGRAM Observed: 03/13/2018 Status: F Source: [place] 8:42 AM [facility] REPOSITORY [facility] Cardiovascular Services [address] [place] [address] 12 Lead EKG 03/07/18 2244 MR#: [id number] Acct: [id number] Name: IFEOMA ASHRAF Ashok Rep #: [id number] : 1965 52 From: Boone Ch MD Attending Dr: Kitty Campos Status: ADM IN Ordering Dr: Alejandro Lopez DO Date: 03/07/18 Location: [facility] Sex: F C Admitted: 03/08/18 Test Reason [...] ECG Confirmed by BOONE CH MD ([id number]), dictionary editor ASHLI CHAN (56) on 03/08/2018 5:10:57 PM Referred By: JOHN Confirmed By:BOONE CH MD 03/08/18 1710 Date Boone Ch MD CC: Kitty Campos; Alejandro Lopez DO; Sangeetha Irvin DO Signed 12 LEAD ELECTROCARDIOGRAM Observed: 03/13/2018 Status: F Source: [place] 8:42 AM [facility] Cardiovascular Services [address] [place] [address] 12 Lead EKG 03/07/18 2322 MR#: [id number] Acct: [id number] Name: SEANIFEOMA Pulido Rep #: [id number] : 1965 52 From: Boone Ch MD Attending Dr: Kitty Campos Status: ADM IN Ordering Dr: Alejandro Lopez DO Date: 03/07/18 Location: [facility] Sex: F C Admitted: 03/08/18 Test Reason [...] ECG Confirmed by BOONE CH MD ([id number]), dictionary editor ASHLI CHAN (56) on 03/08/2018 5:11:19 PM Referred By: JOHN Confirmed By:BOONE CH MD 03/08/18 171 Date Boone Ch MD CC: Kitty aCmpos; Alejandro Lopez DO; Sangeetha Irvin DO Signed 12 LEAD ELECTROCARDIOGRAM Observed: 03/13/2018 Status: F Source: [place] 8:41 AM [facility] Cardiovascular Services [address] [place] [address] 12 Lead EKG 03/07/18 2304 MR#: [id number] Acct: [id number] Name: SEANIFEOMA Rep #: [id number] : 1965 52 From: Boone Ch MD [...] Abnormal ECG Confirmed by BOONE CH MD ([id number]), dictionary editor ASHLI CHAN (56) on 03/08/2018 5:05:31 PM Referred By: ALEJANDRO LOPEZ Confirmed By:BOONE CH MD 03/08/18 170 Date Boone Ch MD CC: Kitty Campos; Alejandro Lopez DO; Sangeetha Irvin DO Signed 12 LEAD ELECTROCARDIOGRAM Observed: 03/13/2018 Status: F Source: [place] 8:41 AM [facility] REPOSITORY [facility] Cardiovascular Services [address] [place] [address] 12 Lead EKG 03/07/185 MR#: [id number] Acct: [id number] Name: IFEOMA ASHRAF Rep #: [id number] : 1965 52 From: Boone Ch MD Attending Dr: Kitty Campos Status: ADM IN Ordering Dr: Alejandro Lopez DO Date: 03/07/18 Location: [facility] Sex: F C Admitted: 03/08/18 Test Reason [...] Abnormal ECG Confirmed by BOONE CH MD ([id number]), dictionary editor ASHLI CHAN (56) on 03/08/2018 5:06:23 PM Referred By: JOHN Confirmed By:BOONE CH MD 03/08/18 170 Date Boone Ch MD CC: Kitty Campos; Alejandro Lopez DO; Sangeetha Irvin DO Signed BEDSIDE GLUCOSE Collected: 03/13/2018 Status: F Source: [place] 6:54 AM [facility] REPOSITORY TYPE CODE TESTS RESULT OUT OF REFERENCE UNITS RANGE LAB L501.080 70-110 mg/dL High BEDSIDE GLU 112 Result Comment: MANAGEMENT OF PATIENT CARE PER NURSING PROTOCOL Performed By: #### L501.080 #### [facility] Point of Care [address] [place], [place] [address] BEDSIDE GLUCOSE Collected: 03/12/2018 Status: F Source: [place] 10:06 PM [facility] REPOSITORY TYPE CODE TESTS RESULT OUT OF REFERENCE UNITS RANGE LAB L501.080 70-110 mg/dL High BEDSIDE GLU 149 Result Comment: MANAGEMENT OF PATIENT CARE PER NURSING PROTOCOL Performed By: #### L501.080 #### [facility] Point of Care [address] [place], [place] [address] BEDSIDE GLUCOSE Collected: 03/12/2018 Status: F Source: [place] 4:23 PM [facility] REPOSITORY TYPE CODE TESTS RESULT OUT OF REFERENCE UNITS RANGE LAB L501.080 70-110 mg/dL High BEDSIDE GLU 116 Result Comment: MANAGEMENT OF PATIENT CARE PER NURSING PROTOCOL Performed By: #### L501.080 #### [facility] Laboratory Point of Care [address] [place] [address] DISCHARGE INSTRUCTION Observed: 03/12/2018 Status: F Source: [place] 11:30 AM [facility] REPOSITORY [facility] Medical Records Department [address] [place] [address] Instructions for Home/Discharge Instructions 03/12/18 1123 MR#: [id number] Acct: [id number] Name: IFEOMA ASHRAF Rep #: [id number] : 1965 53 From: Maricarmen Nguyen MD [...] Verified 11/28/17 11:08) Other irritates/smith the skin Medications to take at Discharge [...] 03/12/2018 Status: F Source: [place] 11:21 AM [facility] REPOSITORY TYPE CODE TESTS RESULT OUT OF REFERENCE UNITS RANGE LAB L501.080 70-110 mg/dL High BEDSIDE GLU 144 Result Comment: MANAGEMENT OF PATIENT CARE PER NURSING PROTOCOL Performed By: #### L501.080 #### [facility] [place] [address] BEDSIDE GLUCOSE Collected: 03/12/2018 Status: F Source: [place] 6:40 AM [facility] REPOSITORY TYPE CODE TESTS RESULT OUT OF RANGE REFERENCE UNITS LAB L501.080 70-110 mg/dL Normal BEDSIDE GLU 90 Result Comment: MANAGEMENT OF PATIENT CARE PER NURSING PROTOCOL Performed By: #### L501.080 #### [facility] Laboratory Point of Care [address] [place] [address] BASIC METABOLIC Collected: 03/12/2018 Status: F Source: [place] PROFILE (BMP) 4:40 AM [facility] REPOSITORY TYPE CODE TESTS RESULT OUT [...] GAP 9 Performed By: #### L500.2500 #### [facility] [address] [place], [address] BEDSIDE GLUCOSE Collected: 03/11/2018 Status: F Source: [place] 9:31 PM [facility] REPOSITORY TYPE CODE TESTS RESULT OUT OF REFERENCE UNITS RANGE LAB L501.080 70-110 mg/dL High BEDSIDE GLU 139 Result Comment: MANAGEMENT OF PATIENT CARE PER NURSING PROTOCOL Performed By: #### L501.080 #### [facility] Point of Care [address] [place] [address] BEDSIDE GLUCOSE Collected: 03/11/2018 Status: F Source: [place] 4:41 PM [facility] REPOSITORY TYPE CODE TESTS RESULT OUT OF REFERENCE UNITS RANGE LAB L501.080 70-110 mg/dL High BEDSIDE GLU 142 Result Comment: MANAGEMENT OF PATIENT CARE PER NURSING PROTOCOL Performed By: #### L501.080 #### [facility] Point of Care [address] [place] [place] [address] BASIC METABOLIC Collected: 03/11/2018 Status: F Source: [place] PROFILE (BMP) 2:40 PM [facility] REPOSITORY TYPE CODE TESTS RESULT OUT [...] GAP 11 Performed By: #### L500.2500 #### [facility] [address] [place], [address] BEDSIDE GLUCOSE Collected: 03/11/2018 Status: F Source: [place] 12:06 PM [facility] REPOSITORY TYPE CODE TESTS RESULT OUT OF RANGE REFERENCE UNITS LAB L501.080 70-110 mg/dL Normal BEDSIDE GLU 94 Result Comment: MANAGEMENT OF PATIENT CARE PER NURSING PROTOCOL Performed By: #### L501.080 #### [facility] Point of Care [address] [place] [address] BEDSIDE GLUCOSE Collected: 03/11/2018 Status: F Source: [place] 6:44 AM [facility] REPOSITORY TYPE CODE TESTS RESULT OUT OF REFERENCE UNITS RANGE LAB L501.080 70-110 mg/dL High BEDSIDE GLU 122 Result Comment: MANAGEMENT OF PATIENT CARE PER NURSING PROTOCOL Performed By: #### L501.080 #### [facility] Point of Care [address] [place] [address] BEDSIDE GLUCOSE Collected: 03/10/2018 Status: F Source: [place] 9:15 PM [facility] REPOSITORY TYPE CODE TESTS RESULT OUT OF REFERENCE UNITS RANGE LAB L501.080 70-110 mg/dL High BEDSIDE GLU 151 Result Comment: MANAGEMENT OF PATIENT CARE PER NURSING PROTOCOL Performed By: #### L501.080 #### [facility] Point of Care [address] [place] [address] BEDSIDE GLUCOSE Collected: 03/10/2018 Status: F Source: [place] 4:37 PM [facility] REPOSITORY TYPE CODE TESTS RESULT OUT OF REFERENCE UNITS RANGE LAB L501.080 70-110 mg/dL High BEDSIDE GLU 143 Result Comment: MANAGEMENT OF PATIENT CARE PER NURSING PROTOCOL Performed By: #### L501.080 #### [facility] Point of Care [address] [place] [address] EMERGENCY DEPARTMENT Observed: 03/10/2018 Status: F Source: [place] SUMMARY 4:10 PM [facility] REPOSITORY [facility] Medical Records Department [address] [place] [address] Emergency Department Summary 03/08/18 0119 MR#: [id number] Acct: [id number] Name: IFEOMA ASHRAF Rep #: [id number] : 1965 52 From: Alejandro Lopez DO [...] 35 minutes This note was generated with [employer] dictation software. It may contain incorrect words, spelling, and punctuation that were not noted in review of the chart prior to signing ED Disposition - Plan for ED Patient: Disposition: Acute Care Hospital [facility] Chief Complaint: General Illness What to do if you have Problems For any increased pain, shortness of breath, bleeding, nausea or vomiting, chest pain, or any unexpected problems, contact your Primary Care Provider. Call [facility] ([phone]) or report to the closest Emergency Room. Call 911 if necessary. 03/10/18 1610 <Electronically signed by Alejandro Lopez DO> Date Alejandro Lopez DO Cosigner Signature (If Indicated): Date CC: Sangeetha Irvin DO CONSULTATION Observed: 03/10/2018 Status: F Source: [place] 1:05 PM [facility] REPOSITORY [facility] Medical Records Department [address] [place] [address] Consultation 03/09/18 1820 MR#: [id number] Acct: [id number] Name: IFEOMA ASHRAF Rep #: [id number] : 1965 53 From: Boone Ch MD PCP: Sangeetha Irvin DO Status: ADM IN Y Location: ICU ICU-1 Reason for Consult Date of Consultation: 03/09/18 Reason for Consultation: Evaluation of cardiac status History of Present Illness: The patient is a 53 year old F with past medical history listed below, who was brought to [facility] on 03/08/2018 after being found unresponsive [...] of automatic cardioverter/defibrillator (AICD) (Chronic) 10/06/2009 @ [facility] Cardiomyopathy in other diseases classified elsewhere (Chronic) [...] 81.8 H, Lymph % (Auto) 9.7 L, Traverse % (Auto) 8.3, Eos % (Auto) 0.0, [...] a day. I discussed the above with welding tester who is in agreement. 4. Abnormal cardiac [...] the above with the patient, the hospitalist welding tester and the family. All in agreement. 03/10/18 1305 <Electronically signed by Boone Ch MD> Date Boone Ch MD Cosigner Signature (if applicable): Date CC: Patrick Willson MD; Sangeetha Irvin DO Signed BEDSIDE GLUCOSE Collected: 03/10/2018 Status: F Source: [place] 11:19 AM [facility] REPOSITORY TYPE CODE TESTS RESULT OUT OF RANGE REFERENCE UNITS LAB L501.080 70-110 mg/dL Normal BEDSIDE GLU 99 Result Comment: MANAGEMENT OF PATIENT CARE PER NURSING PROTOCOL Performed By: #### L501.080 #### [facility] Point of Care [address] [facility] [place], [place] [address] BEDSIDE GLUCOSE Collected: 03/10/2018 Status: F Source: [place] 6:24 AM [facility] REPOSITORY TYPE CODE TESTS RESULT OUT OF RANGE REFERENCE UNITS LAB L501.080 70-110 mg/dL Normal BEDSIDE GLU 98 Result Comment: MANAGEMENT OF PATIENT CARE PER NURSING PROTOCOL Performed By: #### L501.080 #### [facility] Laboratory Point of Care [address] [place] [address] CBC W/DIFF, AUTOMATED Collected: 03/10/2018 Status: F Source: [place] 4:12 AM [facility] REPOSITORY TYPE CODE TESTS RESULT OUT [...] Normal 1+ Performed By: #### L100.0100 #### [facility] [address] [place], [place], [address] BASIC METABOLIC Collected: 03/10/2018 Status: F Source: [place] PROFILE ([facility]) 4:12 AM [facility] REPOSITORY TYPE CODE TESTS RESULT OUT [...] GAP 9 Performed By: #### L500.2500 #### [facility] [address] [facility] [facility] [address] BEDSIDE GLUCOSE Collected: 2018 Status: F Source: [place] 9:55 PM [facility] REPOSITORY TYPE CODE TESTS RESULT OUT OF REFERENCE UNITS RANGE LAB L501.080 70-110 mg/dL High BEDSIDE GLU 150 Result Comment: MANAGEMENT OF PATIENT CARE PER NURSING PROTOCOL Performed By: #### L501.080 #### [facility] Point of Care [address] [facility] [place] [address] BEDSIDE GLUCOSE Collected: 2018 Status: F Source: [place]MI 3:59 PM [facility] REPOSITORY TYPE CODE TESTS RESULT OUT OF REFERENCE UNITS RANGE LAB L501.080 70-110 mg/dL High BEDSIDE GLU 135 Result Comment: MANAGEMENT OF PATIENT CARE PER NURSING PROTOCOL Performed By: #### L501.080 #### [facility] Point of Care [address] [place] [address] VENOUS DUPLEX UPPER Observed: 2018 Status: F Source: [place] EXTREMITY 3:10 PM [facility] REPOSITORY [facility] Cardiovascular Services [address] [place] [address] Venous Duplex US, Unilateral 03/09/18 1021 MR#: [id number] Acct: [id number] Name: IFEOMA ASHRAF Rep #: [id number] : 1965 53 From: Juanjo Russo MD [...] Dictated: 03/09/18 1021 Date Transcribed: 03/09/18 1449 C.O.D. Clerk: Signed BEDSIDE GLUCOSE Collected: 2018 Status: F Source: [place] 11:28 AM [facility] REPOSITORY TYPE CODE TESTS RESULT OUT OF REFERENCE UNITS RANGE LAB L501.080 70-110 mg/dL High BEDSIDE GLU 137 Result Comment: MANAGEMENT OF PATIENT CARE PER NURSING PROTOCOL Performed By: #### L501.080 #### [facility] Point of Care [address] [place] [address]. [place], [place] [address] HEMOGLOBIN A1C Collected: 2018 Status: F Source: [place]MI 8:25 AM [facility] REPOSITORY TYPE CODE TESTS RESULT OUT OF RANGE REFERENCE UNITS LAB L501.9985 4.2-6.3 % Normal HGB A1C 5.7 Performed By: #### L501.9985 #### [facility] [address] [place], [address] LACTIC ACID Collected: 2018 Status: F Source: CARMI 8:25 AM [facility] REPOSITORY Order Comment: Yes/No query for Sepsis Lactate Rule Y TYPE CODE TESTS RESULT OUT OF RANGE REFERENCE UNITS LAB L503.6005 0.4-2.0 mmol/L Normal LACTIC ACID 1.7 Performed By: #### L503.6005 #### [facility] [address] [facility] [place], [address] IRON+IRON BINDING Collected: 2018 Status: F Source: [place] CAPACITY 8:25 AM [facility] REPOSITORY Order Comment: Comments: as add on test Comments: as add on test TYPE CODE TESTS RESULT OUT OF RANGE REFERENCE UNITS LAB L503.6075 250-450 ug/dL TIBC Normal 380 LAB L503.6150 50-170 ug/dL Low IRON 24 LAB L503.6250 15.0-55.0 % Low IRON SATURATION 6.3 Performed By: #### L503.6030, L503.6550 #### [facility] [address] [place], [address] FERRITIN Collected: 2018 Status: F Source: CARMI 8:25 AM [facility] REPOSITORY Order Comment: Comments: as add on test Comments: as add on test TYPE CODE TESTS RESULT OUT OF RANGE REFERENCE UNITS LAB L503.6550 8-252 ng/mL Normal FERRITIN 97 Performed By: #### L503.6030, L503.6550 #### [facility] [address] [facility] [place], [address] BEDSIDE GLUCOSE Collected: 2018 Status: F Source: CARMI 6:26 AM [facility] REPOSITORY TYPE CODE TESTS RESULT OUT OF REFERENCE UNITS RANGE LAB L501.080 70-110 mg/dL High BEDSIDE GLU 114 Result Comment: MANAGEMENT OF PATIENT CARE PER NURSING PROTOCOL Performed By: #### L501.080 #### [facility] Point of Care [address] [place] [address] CONSULTATION Observed: 2018 Status: F Source: CAR[place] 5:32 AM [facility] REPOSITORY [facility] Medical Records Department [address] [facility] [place] [address] Consultation 03/08/18 0830 MR#: [id number] Acct: [id number] Name: IFEOMA ASHRAF Rep #: [id number] : 1965 52 From: Patrick Willson MD [...] history listed below, who was brought to [facility] on 03/08/2018 after being found unresponsive [...] of automatic cardioverter/defibrillator (AICD) (Chronic) 10/06/2009 [facility] Cardiomyopathy in other diseases classified elsewhere (Chronic) [...] automatic cardioverter/defibrillator (AICD) (Chronic) Z95.810 10/06/2009 @ [facility] History of cholecystectomy Z98.890, Z90.49 History of [...] team Code Visit Inpatient E AND M: [id number] Init Hosp L3 03/09/18 0532 <Electronically signed by Patrick Willson MD> Date Patrick Willson MD Cosigner Signature (if applicable): Date CC: Patrick Willson MD; Sangeetha Irvin DO Signed BASIC METABOLIC Collected: 2018 Status: F Source: [place] PROFILE (BMP) 4:05 AM [facility] REPOSITORY TYPE CODE TESTS RESULT OUT [...] GAP 10 Performed By: #### L500.2500 #### [facility] [address] [place], [address] CBC W/DIFF, AUTOMATED Collected: 2018 Status: F Source: GERRI 4:05 AM [facility] REPOSITORY TYPE CODE TESTS RESULT OUT [...] OVALOCYTE 1+ Performed By: #### L100.0100 #### [facility] [address] [place], [place], [address] BEDSIDE GLUCOSE Collected: 03/08/2018 Status: F Source: CARMI 9:58 PM [facility] REPOSITORY TYPE CODE TESTS RESULT OUT OF RANGE REFERENCE UNITS LAB L501.080 70-110 mg/dL Normal BEDSIDE GLU 110 Result Comment: MANAGEMENT OF PATIENT CARE PER NURSING PROTOCOL Performed By: #### L501.080 #### [facility] Point of Care [address] [place] [address] BEDSIDE GLUCOSE Collected: 03/08/2018 Status: F Source: CARMI 4:08 PM [facility] REPOSITORY TYPE CODE TESTS RESULT OUT OF REFERENCE UNITS RANGE LAB L501.080 70-110 mg/dL High BEDSIDE GLU 143 Result Comment: MANAGEMENT OF PATIENT CARE PER NURSING PROTOCOL Performed By: #### L501.080 #### [facility] Point of Care [address] [place] [address] ECHOCARDIOGRAM COMPLETE Observed: 03/08/2018 Status: F Source: CARMI 12:47 PM [facility] REPOSITORY [facility] Cardiovascular Services [address] [place] [address] Echo Complete 03/08/18 0819 MR#: [id number] Acct: [id number] Name: IFEOMA ASHRAF Rep #: [id number] : 1965 52 From: Boone Ch MD [...] 03/08/18 1246 Date Boone Ch MD CC: Maricarmen Nguyen MD; Sangeetha Irvin DO Date Dictated: 03/08/18 0819 Date Transcribed: 03/08/18 1246 C.O.D. Clerk: Signed BEDSIDE GLUCOSE Collected: 03/08/2018 Status: F Source: GERRI 11:16 AM [facility] REPOSITORY TYPE CODE TESTS RESULT OUT OF REFERENCE UNITS RANGE LAB L501.080 70-110 mg/dL High BEDSIDE GLU 213 Result Comment: MANAGEMENT OF PATIENT CARE PER NURSING PROTOCOL Performed By: #### L501.080 #### [facility] Point of [address] [place], [place] [address] CBC W/DIFF, AUTOMATED Collected: 03/08/2018 Status: F Source: GERRI 11:15 AM [facility] REPOSITORY TYPE CODE TESTS RESULT OUT [...] ANISO 1+ Performed By: #### L100.0100 #### [facility] [address] [place], [place], [address] BASIC METABOLIC Collected: 03/08/2018 Status: F Source: CARMI PROFILE (BMP) 11:15 AM [facility] REPOSITORY TYPE CODE TESTS RESULT OUT [...] GAP 13 Performed By: #### L500.2500 #### [facility] [address] [facility] [place], [address] LACTIC ACID Collected: 03/08/2018 Status: F Source: GERRI 11:15 AM [facility] REPOSITORY Order Comment: Yes/No query for Sepsis Lactate Rule Y TYPE CODE TESTS RESULT OUT OF REFERENCE UNITS RANGE LAB L503.6005 0.4-2.0 mmol/L High alert LACTIC ACID 6.5 Result Comment: Critical Result(s) Called at: 12:28:17 03/08/2018 by: Milena Bear RN (ICU). Performed By: #### L503.6005 #### [facility] [address] [place], [address] TROPONIN-I Collected: 03/08/2018 Status: F Source: CARMI 7:55 AM [facility] REPOSITORY Order Comment: 'TROP' Serial specimen #1, [...] Not every elevated troponin is indicative of UT. These values should be used with clinical judgement in examining the patient's clinical picture for diagnosis. To establish a diagnosis of UT versus myocardial injury, there must be a demonstrated rise and/or fall in the troponin values, in addition to ischemic symptoms, EKG changes, new regional wall motion abnormality, and/or angiographical evidence. PLEASE NOTE: REFERENCE RANGES EDITED 18 Performed By: #### L501.4010 #### [facility] [address] [place], [place], [address] DIGOXIN LEVEL Collected: 03/08/2018 Status: F Source: GERRI 7:55 AM [facility] REPOSITORY Order Comment: Comments: as add on test to am lab TYPE CODE TESTS RESULT OUT OF RANGE REFERENCE UNITS LAB L501.7510 0.80-2.00 ng/mL Low DIG 0.23 Performed By: #### L501.7510 #### [facility] [address] [place], [address] BEDSIDE GLUCOSE Collected: 03/08/2018 Status: F Source: GERRI 7:50 AM [facility] REPOSITORY TYPE CODE TESTS RESULT OUT OF REFERENCE UNITS RANGE LAB L501.080 70-110 mg/dL High BEDSIDE GLU 211 Result Comment: MANAGEMENT OF PATIENT CARE PER NURSING PROTOCOL Performed By: #### L501.080 #### [facility] Point of Care [address] [place] [address] VENOUS BLOOD GAS Collected: 03/08/2018 Status: F Source: GERRI 4:54 AM [facility] REPOSITORY TYPE CODE TESTS RESULT OUT [...] 16 ISTAT Performed By: #### L9000.0810 #### [facility] Point of Care [address] [place] [address] BASIC METABOLIC Collected: 03/08/2018 Status: F Source: GERRI PROFILE (BMP) 4:02 AM [facility] REPOSITORY TYPE CODE TESTS RESULT OUT [...] GAP 17 Performed By: #### L500.2500 #### [facility] [address] [place], [address] CBC-COMPLETE BLOOD CNT Collected: 03/08/2018 Status: F Source: CARMI NO DIFF 4:02 AM [facility] REPOSITORY TYPE CODE TESTS RESULT OUT [...] 11.0 Performed By: #### L100.0500, L100.4500 #### [facility] [address] [place], [address] DIFFERENTIAL COMMENT Collected: 03/08/2018 Status: F Source: CARMI 4:02 AM [facility] REPOSITORY TYPE CODE TESTS RESULT OUT OF RANGE REFERENCE UNITS LAB L100.4500 Normal SMEAR COMMENT SCANNED Result Comment: 2+ CRENATED RBC's 3+ MACROCYTOSIS Performed By: #### L100.0500, L100.4500 #### [facility] [address] [place], [address] LACTIC ACID Collected: 03/08/2018 Status: F Source: CARMI 4:02 AM [facility] REPOSITORY Order Comment: Yes/No query for Sepsis Lactate Rule Y TYPE CODE TESTS RESULT OUT OF REFERENCE UNITS RANGE LAB L503.6005 0.4-2.0 mmol/L High alert LACTIC ACID 9.2 Result Comment: Critical Result(s) Called at: 05:08:35 03/08/2018 by: ARLETH JUAREZ TO RADHA BEASLEY Performed By: #### L503.6005 #### [facility] [address] [place], [address] ABDOMEN SINGLE VIEW Observed: 03/08/2018 Status: F Source: CARMI (PORTABLE) 3:00 AM [facility] REPOSITORY [facility] Imaging Services [address] [place] [address] Abdomen Single View (Portable) MR#: [id number] Acct: [id number] Name: IFEOMA ASHRAF Rep #: [id number] : 1965 F 52 From: Jin Rolon PCP: Sangeetha Irvin DO Status: ADM IN Study: Abdomen Single View (Portable) Date of Exam: 03/08/18 Exam# [id number] Ordering Dr: Monique Tamez DO STUDY: X-RAY - ABDOMEN/PELVIS REASON FOR EXAM: Female, 52 years old. Abdominal pain for one week. TECHNIQUE: AP supine abdomen. 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 Clerk: Kerry Abreu STAPH AUREUS Collected: 03/08/2018 Status: F Source: CARMI DNA BY PCR 3:00 AM [facility] REPOSITORY Order Comment: RESULTS CALLED TO [facility] ICU 03/08/18 0459 Ansley Sarabia. REPORT READ BACK BY SAME. TYPE CODE TESTS RESULT OUT OF REFERENCE UNITS RANGE LAB L8200.1100 Negative High MRSA POSITIVE RESULT Performed By: #### L8200.1000 #### [facility] [address] [place], [address] HISTORY AND PHYSICAL Observed: 03/08/2018 Status: F Source: CARMI EXAM 2:51 AM [facility] REPOSITORY 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 Code Visit Inpatient E AND M: [id number] Init Hosp L3 03/08/18 0251 <Electronically signed by Monique Tamez DO> Date Monique Tamez DO Cosigner Signature: Date (if applicable) CC: Sangeetha Irvin DO; Monique Tamez DO Signed URINE DRUG SCREEN Collected: 03/08/2018 Status: F Source: GERRI (KAREEN) 1:55 AM [facility] REPOSITORY TYPE CODE TESTS RESULT OUT [...] Normal NEGATIVE Performed By: #### L505.5000 #### [facility] [address] [place], [address] URINALYSIS, COMPLETE Collected: 03/08/2018 Status: F Source: CARMI 1:55 AM [facility] REPOSITORY Order Comment: How was Urine Obtained? [...] AMORPHOUS 2+ Performed By: #### L400.0001 #### [facility] [address] [place], [place], [address] BEDSIDE GLUCOSE Collected: 03/08/2018 Status: F Source: GERRI 12:59 AM [facility] REPOSITORY TYPE CODE TESTS RESULT OUT OF REFERENCE UNITS RANGE LAB L501.080 70-110 mg/dL High BEDSIDE GLU 169 Result Comment: MANAGEMENT OF PATIENT CARE PER NURSING PROTOCOL Performed By: #### L501.080 #### [facility] Point of Care [address] [place] [address] BLOOD GASES BY CPS Collected: 03/08/2018 Status: F Source: GERRI 12:51 AM [facility] REPOSITORY TYPE CODE TESTS RESULT OUT [...] ISTAT 99 Performed By: #### L9000.0800 #### [facility] Point of Care [address] [place] [address] BASIC METABOLIC Collected: 03/08/2018 Status: F Source: GERRI PROFILE (BMP) 12:35 AM [facility] REPOSITORY TYPE CODE TESTS RESULT OUT [...] Result(s) Called at: 01:06:28 03/08/2018 by: ANSLEY STANFORD,TRIMMER TAILER LAB L501.5900 98-107 mmol/L Normal CL 104 LAB L501.6100 21.0-32.0 mmol/L Low CO2 15.0 LAB L501.6200 5-15 High GAP 16 Performed By: #### L500.2500 #### [facility] [address] [facility] [place], [address] BRAIN/HEAD WITHOUT Observed: 03/08/2018 Status: F Source: CARMI CONTRAST 12:27 AM [facility] REPOSITORY [facility] Imaging Services [address] [place] [address] Brain/Head without Contrast MR#: [id number] Acct: [id number] Name: IFEOMA ASHRAF Rep #: [id number] : 1965 F 52 From: Jin Rolon PCP: Sangeetha Irvin DO Status: REG ER Study: Brain/Head without Contrast Date of Exam: 03/08/18 Exam# [id number] Ordering Dr: Alejandro Lopez DO STUDY: CT [...] CC: Alejandro Lopez DO; Sangeetha Irvin DO C.O.D. Clerk: Signed PROTHROMBIN TIME W/INR Collected: 03/07/2018 Status: F Source: CARMI 11:59 PM [facility] REPOSITORY TYPE CODE TESTS RESULT OUT OF RANGE REFERENCE UNITS LAB L300.4150 11.7-14.9 SECONDS High PROTIME 26.4 LAB L300.4200 Normal INR 2.4 Performed By: #### L300.3900, L300.4310 #### [facility] [address] [place], [address] PARTIAL THROMBOPLAST Collected: 03/07/2018 Status: F Source: CARMI TIME 11:59 PM [facility] REPOSITORY TYPE CODE TESTS RESULT OUT OF RANGE REFERENCE UNITS LAB L300.4310 24.1-36.2 Seconds Normal PTT 33.7 Performed By: #### L300.3900, L300.4310 #### [facility] [address] [place], [address] ACETONE SERUM Collected: 03/07/2018 Status: F Source: CARMI 11:59 PM [facility] REPOSITORY TYPE CODE TESTS RESULT OUT OF RANGE REFERENCE UNITS LAB L501.6900 NEG Normal ACETONE SERUM NEGATIVE Performed By: #### L501.6900 #### [facility] [address] [place], [address] DIGOXIN LEVEL Collected: 03/07/2018 Status: F Source: CARMI 11:59 PM [facility] REPOSITORY TYPE CODE TESTS RESULT OUT OF RANGE REFERENCE UNITS LAB L501.7510 0.80-2.00 ng/mL Low DIG 0.32 Performed By: #### L501.7510 #### [facility] [address] [place], [address] LACTIC ACID Collected: 03/07/2018 Status: F Source: CARMI 11:59 PM [facility] REPOSITORY Order Comment: Yes/No query for Sepsis Lactate Rule Y TYPE CODE TESTS RESULT OUT OF REFERENCE UNITS RANGE LAB L503.6005 0.4-2.0 mmol/L High alert LACTIC ACID 12.4 Result Comment: Critical Result(s) Called at: 00:52:58 03/08/2018 by: ANSLEY OWENS RN ED Performed By: #### L503.6005 #### [facility] [address] [place], [address] SALICYLATE Collected: 03/07/2018 Status: F Source: CARMI 11:59 PM [facility] REPOSITORY TYPE CODE TESTS RESULT OUT OF REFERENCE UNITS RANGE LAB L501.8300 2.8-20.0 mg/dL Low SALICYLATE < 1.7 Result Comment: Slight Icterus, Result may be falsely decreased. Performed By: #### L501.8300, L501.8400, L501.9100 #### [facility] [address] [place], [address] ACETAMINOPHEN (TYLENOL) Collected: 03/07/2018 Status: F Source: GER[place] LEVEL 11:59 PM [facility] REPOSITORY TYPE CODE TESTS RESULT OUT OF REFERENCE UNITS RANGE LAB L501.8400 10.0-30.0 ug/mL ACETAMINOPHEN Low 4.9 Result Comment: Slight Icterus, Result may be falsely decreased. Performed By: #### L501.8300, L501.8400, L501.9100 #### [facility] [address] [place], [address] ALCOHOL, BLOOD Collected: 03/07/2018 Status: F Source: GERRI (MEDICAL)-SERUM 11:59 PM [facility] REPOSITORY TYPE CODE TESTS RESULT OUT [...] Performed By: #### L501.8300, L501.8400, L501.9100 #### [facility] [address] [place], [address] CXR FOR LINE PLACEMENT Observed: 03/07/2018 Status: F Source: GERRI 11:48 PM [facility] REPOSITORY [facility] Imaging Services [address] [place] [address] CXR for Line Placement MR#: [id number] Acct: [id number] Name: IFEOMA ASHRAF Rep #: [id number] : 1965 F 52 From: Jin Rolon PCP: Sangeetha Irvin DO Status: REG ER Study: CXR for Line Placement Date of Exam: 03/07/18 Exam# [id number] Ordering Dr: Alejandro Lopez DO STUDY: X-RAY [...] CC: Alejandro Lopez DO; Sangeetha Irvin DO C.O.D. Clerk: Signed BLOOD GASES BY CPS Collected: 03/07/2018 Status: F Source: GERRI 11:02 PM [facility] REPOSITORY TYPE CODE TESTS RESULT OUT [...] ISTAT 99 Performed By: #### L9000.0800 #### [facility] Point of Care [address] [place] [address] BEDSIDE GLUCOSE Collected: 03/07/2018 Status: F Source: CARMI 10:52 PM [facility] REPOSITORY TYPE CODE TESTS RESULT OUT OF REFERENCE UNITS RANGE LAB L501.080 70-110 mg/dL High BEDSIDE GLU 214 Result Comment: MANAGEMENT OF PATIENT CARE PER NURSING PROTOCOL Performed By: #### L501.080 #### [facility] Point of Care [address] [place] [address] CBC W/DIFF, AUTOMATED Collected: 03/07/2018 Status: F Source: CARMI 10:37 PM [facility] REPOSITORY TYPE CODE TESTS RESULT OUT [...] RBC 1+ Performed By: #### L100.0100 #### [facility] [address] [place], [address] BASIC METABOLIC Collected: 03/07/2018 Status: F Source: CARMI PROFILE (BMP) 10:37 PM [facility] REPOSITORY TYPE CODE TESTS RESULT OUT [...] #### L500.2500, L500.3400, L501.2450, L501.4010, L501.5200 #### [facility] [address] [facility] [place], [place], [address] LIVER PROFILE Collected: 03/07/2018 Status: F Source: CARMI 10:37 PM [facility] REPOSITORY TYPE CODE TESTS RESULT OUT [...] #### L500.2500, L500.3400, L501.2450, L501.4010, L501.5200 #### [facility] [address] [facility] [place], [place], [address] LIPASE Collected: 03/07/2018 Status: F Source: CARMI 10:37 PM [facility] REPOSITORY TYPE CODE TESTS RESULT OUT OF RANGE REFERENCE UNITS LAB L501.2450 73-393 U/L Normal LIPASE 86 Performed By: #### L500.2500, L500.3400, L501.2450, L501.4010, L501.5200 #### [facility] [address] [facility] [place], [place], [address] TROPONIN-I Collected: 03/07/2018 Status: F Source: CARMI 10:37 PM [facility] REPOSITORY TYPE CODE TESTS RESULT OUT OF RANGE REFERENCE UNITS LAB L501.4010 <0.045 ng/mL High 0.081 TROPONIN-I Result Comment: TROPONIN-I EXPECTED VALUES <0.045 Negative 0.045 - 0.590 Consistent with Cardiac Damage > OR = 0.600 Critical Value Not every elevated troponin is indicative of UT. These values should be used with clinical judgement in examining the patient's clinical picture for diagnosis. To establish a diagnosis of UT versus myocardial injury, there must be a demonstrated rise and/or fall in the troponin values, in addition to ischemic symptoms, EKG changes, new regional wall motion abnormality, and/or angiographical evidence. PLEASE NOTE: REFERENCE RANGES EDITED 18 Performed By: #### L500.2500, L500.3400, L501.2450, L501.4010, L501.5200 #### [facility] [address] [facility] [place], [address] MAGNESIUM Collected: 03/07/2018 Status: F Source: CARMI 10:37 PM [facility] REPOSITORY TYPE CODE TESTS RESULT OUT OF RANGE REFERENCE UNITS LAB L501.5200 1.6-2.6 mg/dL Normal MG 2.0 Result Comment: Moderate Hemolysis, Result may be falsely increased. Performed By: #### L500.2500, L500.3400, L501.2450, L501.4010, L501.5200 #### [facility] [address] [facility] [place], [address] CHEST 1 VIEW Observed: 03/07/2018 Status: F Source: CARMI (PORTABLE) 10:33 PM [facility] REPOSITORY [facility] Imaging Services [address] [place] [address] Chest 1 View (Portable) MR#: [id number] Acct: [id number] Name: IFEOMA ASHRAF Rep #: [id number] : 1965 F 52 From: Lamberto Arreola DO PCP: Sangeetha Irvin DO Status: REG ER Study: Chest 1 View (Portable) Date of Exam: 03/07/18 Exam# [id number] Ordering Dr: Alejandro Lopez DO STUDY: X-RAY [...] CC: Alejandro Lopez DO; Sangeetha Irvin DO C.O.D. Clerk: Signed BEDSIDE GLUCOSE Collected: 03/07/2018 Status: F Source: CARMI 10:10 PM [facility] REPOSITORY TYPE CODE TESTS RESULT OUT OF REFERENCE UNITS RANGE LAB L501.080 70-110 mg/dL Low alert BEDSIDE GLU 20 Result Comment: MANAGEMENT OF PATIENT CARE PER NURSING PROTOCOL Performed By: #### L501.080 #### [facility] Point of Care [facility] [address] [place], [place] [address] CBC W/DIFF, AUTOMATED Collected: 02/23/2018 Status: F Source: CARMI 3:19 PM [facility] REPOSITORY Order Comment: Order Date: 02/23/18 Order Info: 0184-1 - CBCD Order Info: 85387-0 - SED TYPE CODE TESTS RESULT OUT [...] #### L100.0100, L101.9900, L500.4050, L501.2400, L501.2450 #### [facility] [address] [place], [place], [address] ERYTHROCYTE SED RATE Collected: 02/23/2018 Status: F Source: CARMI 3:19 PM [facility] REPOSITORY Order Comment: Order Date: 02/23/18 Order Info: 0184-1 - CBCD Order Info: 70053-5 - SED TYPE CODE TESTS RESULT OUT OF RANGE REFERENCE UNITS LAB L102.0000 0-30 mm/hr Normal SED RATE 16 Performed By: #### L100.0100, L101.9900, L500.4050, L501.2400, L501.2450 #### [facility] [place], [address] COMPREHENSIVE METABOLIC Collected: 02/23/2018 Status: F Source: GERRI SOLIS 3:19 PM [facility] REPOSITORY Order Comment: Order Date: 02/23/18 Order [...] #### L100.0100, L101.9900, L500.4050, L501.2400, L501.2450 #### [facility] [address] [place], [address] AMYLASE Collected: 02/23/2018 Status: F Source: GERRI 3:19 PM [facility] REPOSITORY Order Comment: Order Date: 02/23/18 Order Info: 0786-1 - CMP Order Info: 17988 - NAJMA Order Info: 3040-3 - LIPASE TYPE CODE TESTS RESULT OUT OF RANGE REFERENCE UNITS LAB L501.2400 25-115 U/L Normal NAJMA 27 Performed By: #### L100.0100, L101.9900, L500.4050, L501.2400, L501.2450 #### [facility] [address] [place], [address] LIPASE Collected: 02/23/2018 Status: F Source: CARMI 3:19 PM [facility] REPOSITORY Order Comment: Order Date: 02/23/18 Order Info: 0786-1 - CMP Order Info: 17988 - NAJMA Order Info: 3040-3 - LIPASE TYPE CODE TESTS RESULT OUT OF RANGE REFERENCE UNITS LAB L501.2450 73-393 U/L Normal LIPASE 92 Performed By: #### L100.0100, L101.9900, L500.4050, L501.2400, L501.2450 #### [facility] [address] [place], [address] CBC W/DIFF, AUTOMATED Collected: 01/26/2018 Status: F Source: GERRI 11:15 AM [facility] REPOSITORY Order Comment: CMP, CBCD IS FOR DR MONACO REST IS FOR DR IRVIN TYPE CODE [...] Normal 1+ Performed By: #### L100.0100 #### [facility] [address] [place], [place], [address] MICROALB:CREAT Collected: 01/26/2018 Status: F Source: [facility] UR 11:15 AM [facility] REPOSITORY Order Comment: CMP, CBCD IS FOR DR MONACO REST IS FOR DR IRVIN TYPE CODE TESTS RESULT OUT OF RANGE REFERENCE UNITS LAB L501.1200 NO RANGE EST. mg/dL Normal UR CREAT 171.00 LAB L502.0500 NO RANGE EST. mg/L Normal 58.6 MICROALBUMIN ,UR LAB L502.0600 <30 mg/g CRE mg/g CRE High 34.3 MALB:CREAT Performed By: #### L502.0250 #### [facility] [address] [place], [address] COMPREHENSIVE METABOLIC Collected: 01/26/2018 Status: F Source: [facility] 11:15 AM [facility] REPOSITORY Order Comment: CMP, CBCD IS FOR DR MONACO REST IS FOR DR IRVIN TYPE CODE [...] L500.4050, L500.4100, L501.2400, L501.2450, L501.5200, L501.9520 #### [facility] [address] [place], [place], [address] LIPID PROFILE Collected: 01/26/2018 Status: F Source: CARMI 11:15 AM [facility] REPOSITORY Order Comment: CMP, CBCD IS FOR DR DEV BRANCH IS FOR DR IRVIN TYPE CODE [...] L500.4050, L500.4100, L501.2400, L501.2450, L501.5200, L501.9520 #### [facility] [address] [place], [place], [address] AMYLASE Collected: 01/26/2018 Status: F Source: CARMI 11:15 AM [facility] REPOSITORY Order Comment: CMP, CBCD IS FOR DR DEV BRANCH IS FOR DR IRVIN TYPE CODE TESTS RESULT OUT OF RANGE REFERENCE UNITS LAB L501.2400 25-115 U/L Normal NAJMA 29 Performed By: #### L500.4050, L500.4100, L501.2400, L501.2450, L501.5200, L501.9520 #### [facility] [address] [place], [place], [address] LIPASE Collected: 01/26/2018 Status: F Source: CARMI 11:15 AM [facility] REPOSITORY Order Comment: CMP, CBCD IS FOR DR DEV BRANCH IS FOR FAST TYPE CODE TESTS RESULT OUT OF RANGE REFERENCE UNITS LAB L501.2450 73-393 U/L Normal LIPASE 101 Performed By: #### L500.4050, L500.4100, L501.2400, L501.2450, L501.5200, L501.9520 #### [facility] [place], [place], [address] MAGNESIUM Collected: 01/26/2018 Status: F Source: CARMI 11:15 AM [facility] REPOSITORY Order Comment: CMP, CBCD IS FOR DR DEV BRANCH IS FOR FAST TYPE CODE TESTS RESULT OUT OF RANGE REFERENCE UNITS LAB L501.5200 1.6-2.6 mg/dL Normal MG 1.8 Performed By: #### L500.4050, L500.4100, L501.2400, L501.2450, L501.5200, L501.9520 #### [facility] [place], [place], [address] THYROID STIM HORMONE Collected: 01/26/2018 Status: F Source: CARMI (TSH) 11:15 AM [facility] REPOSITORY Order Comment: CMP, CBCD IS FOR DR DEV BRANCH IS FOR FAST TYPE CODE TESTS RESULT OUT OF RANGE REFERENCE UNITS LAB L501.9520 0.358-3.74 uIU/mL Normal TSH 1.84 Performed By: #### L500.4050, L500.4100, L501.2400, L501.2450, L501.5200, L501.9520 #### [facility] [address] [place], [address] DIGOXIN LEVEL Collected: 01/26/2018 Status: F Source: GERRI 11:15 AM [facility] REPOSITORY Order Comment: CMP, CBCD IS FOR DR MONACO REST IS FOR DR IRVIN TYPE CODE TESTS RESULT OUT OF RANGE REFERENCE UNITS LAB L501.7510 0.80-2.00 ng/mL Normal DIG 0.92 Performed By: #### L501.7510 #### [facility] [address] [place], [address] VITAMIN B12 Collected: 01/26/2018 Status: F Source: GERRI 11:15 AM [facility] REPOSITORY Order Comment: CMP, CBCD IS FOR DR MONACO REST IS FOR DR IRVIN TYPE CODE TESTS RESULT OUT OF RANGE REFERENCE UNITS LAB L503.0105 211-911 pg/mL Normal Vitamin B12 383 Performed By: #### L503.0105, L506.1000 #### [facility] [place], [address] VITAMIN D,25 HYDROXY Collected: 01/26/2018 Status: F Source: GERRI 11:15 AM [facility] REPOSITORY Order Comment: CMP, CBCD IS FOR DR DEV BRANCH IS FOR DR IRVIN TYPE CODE TESTS RESULT OUT OF RANGE REFERENCE UNITS LAB L506.1000 29.95-100.01 ng/mL Normal Vitamin D 72.0 25-OH Result Comment: Vitamin D 25(OH) Status Range Deficiency <20 ng/mL (50nmol/L) Insuffciency 20 - 30 ng/mL (50 - 75 nmol/L) Sufficiency 30 - 100 ng/mL (75 - 250 nmol/L) Toxicity >100 ng/mL (>250 nmol/L) Performed By: #### L503.0105, L506.1000 #### [facility] [place], [address] TXT - BLOOD FLOW Observed: 11/22/2017 Status: F Source: GERRI SCREENING 3:18 PM [facility] REPOSITORY [facility] Cardiovascular Services [address] [place] [address] 11/22/17 0803 MR#: [id number] Acct: [id number] Name: IFEOMA ASHRAF Rep #: [id number] : 1965 52 From: Juanjo Russo MD Attending Dr: Sangeetha Irvin DO Status: REG REF Ordering Dr: Date: 11/22/17 Location: [facility] Sex: F C Admitted: Carotid Duplex Ultrasound [...] Dictated: 11/22/17 0803 Date Transcribed: 11/22/17 1518 C.O.D. Clerk: Signed CBC W/DIFF, AUTOMATED Collected: 11/22/2017 Status: F Source: CARMI 8:35 AM [facility] REPOSITORY TYPE CODE TESTS RESULT OUT [...] Lymph 1.30 Performed By: #### L100.0100 #### [facility] [address] [place], [address] COMPREHENSIVE METABOLIC Collected: 11/22/2017 Status: F Source: GERRI SOLIS 8:33 AM [facility] REPOSITORY Order Comment: Reason for Laboratory Test [...] 8 Performed By: #### L500.4050, L504.2610 #### [facility] [address] [place] [place], [address] LDH Collected: 11/22/2017 Status: F Source: GERRI 8:33 AM [facility] REPOSITORY Order Comment: Reason for Laboratory Test OV Serial Specimen #1, #2 or #3? 1 TYPE CODE TESTS RESULT OUT OF RANGE REFERENCE UNITS LAB L504.2610 84-246 U/L Normal LDH 198 Performed By: #### L500.4050, L504.2610 #### [facility] [address] [place], [address] OFFICE VISIT REPORT Observed: 11/18/2017 Status: F Source: GERRI 8:13 AM [facility] REPOSITORY [facility] [address] 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 Name: [employer]ura VR Model: [id number] Serial #: [id number] Implant Date: 11/10/17 Year(s): 0 Implant Physician: Dr. 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 [employer] Model Lead 1: 7121Q/58 Serial# Lead 1: [id number] Date Implanted Lead 1: 10/10/09 Position Lead [...] 11/18/17 0813<Electronically signed by Noe Morris MD> [facility] Signature: Date (if applicable) Noe Morris MD CC: OPERATIVE REPORT Observed: 11/10/2017 Status: F Source: GERRI 11:50 AM [facility] REPOSITORY [facility] Medical Records Department [facility] [place] [address] Operative Report 11/10/17 1148 MR#: [id number] Acct: [id number] Name: IFEOMA ASHRAF Rep #: [id number] : 1965 52 From: Lior Ahmadi MD PCP: Sangeetha Irvin DO Status: REG [facility] Y Location: [facility] Operative Report Date of Procedure: 11/10/17 Preoperative diagnosis is device at end of life for normal battery depletion. Postoperative diagnosis same as above. After informed consent and IV antibiotics the patient was brought to the [facility] and the skin over the [...] chart documents provided by the device company charter representative procedure summary. 11/10/17 1150 <Electronically signed by Lior Ahmadi MD> Date Lior Ahmadi MD CC: Sangeetha Irvin DO; Lior Ahmadi MD Signed Observed: 11/07/2017 Status: F Source: CARMI CULTURE, URINE 11:15 AM [facility] REPOSITORY VERBAL ORDER DR. IRVIN'S OFFICE Urine Culture ORGANISM 1: Mixed Gram Positive Organisms [place] Count 11,000-25,000 MIX CULTURE Mixed contaminants. Submit a new specimen if indicated. Performed By: #### M100.0650 #### [facility] [address] [place], [address] CBC W/DIFF, AUTOMATED Collected: 11/07/2017 Status: F Source: CARMI 11:11 AM [facility] REPOSITORY TYPE CODE TESTS RESULT OUT [...] Lymph 1.34 Performed By: #### L100.0100 #### [facility] [place], [address] COMPREHENSIVE METABOLIC Collected: 11/07/2017 Status: F Source: GERRI SOLIS 11:11 AM [facility] REPOSITORY Order Comment: Comments: clean catch TYPE [...] GAP 7 Performed By: #### L500.4050 #### [facility] [address] [place], [address] URINALYSIS, COMPLETE Collected: 11/07/2017 Status: F Source: GERRI 11:10 AM [facility] REPOSITORY Order Comment: ORDERED UAC ORDERED CMP AND CBCD Comments: clean catch Comments: clean catch How was Urine Obtained? PHYSICIST ACOUSTICS TO SPECIFY TYPE CODE TESTS RESULT OUT [...] URINE RARE Performed By: #### L400.0001 #### [facility] [address] [place], [address] OFFICE VISIT REPORT Observed: 11/03/2017 Status: F Source: GERRI 4:48 PM [facility] REPOSITORY [facility] [address] [place] [address] OFFICE VISIT Date of Service: 11/03/17 MR#: [id number] Acct: [id number] Patient: IFEOMA ASHRAF Rep #: [id number] : 1965 Provider: Danica Pickering Age/Sex: 52/F Location: [facility] Status: Signed Comments Summary Comments: Written [...] in office Interview Reason: routine follow up 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 Model Lead 1: 7121Q/58 Serial# Lead 1: [id number] Date Implanted Lead 1: 10/10/09 Position Lead [...] of automatic cardioverter/defibrillator (AICD) Z95.810 10/06/2009 [facility] 2. Cardiomyopathy in other diseases classified elsewhere I43 11/03/17 1251 <Electronically signed by Danica Pickering > Date Danica Pickering 11/03/17 1648<Electronically signed by Boone Ch MD> Cosigner Signature: Date (if applicable) Boone Ch MD CC: CARDIOLOGY VISIT Observed: 11/03/2017 Status: F Source: CARMI REPORT 1:54 PM [facility] REPOSITORY [facility] [address] [place] [address] OFFICE VISIT Date of Service: 11/03/17 MR#: [id number] Acct: [id number] Name: IFEOMA ASHRAF Rep #: [id number] : 1965 Provider: Boone Ch MD Age/Sex: 52/F Location: [facility] Status: Signed HPI HPI Details: IFEOMA [...] 25 to 29 (25% per echo 03/11/2015) [facility] Medical History Type 2 diabetes mellitus without [...] of automatic cardioverter/defibrillator (AICD) Z95.810 10/06/2009 @ [facility] Plan She is status post [...] was also being followed up at the [facility]. She is also on spironolactone and she [...] Status: F Source: GERRI 11/03/2017 12:42 PM [facility] REPOSITORY Order Comment: Comments: use blood in lab TYPE CODE TESTS RESULT OUT OF REFERENCE UNITS RANGE LAB L700.7000 0-9 Nonpreg Negative Normal HCGSQUAL NEGATIVE LAB L700.6700 =>Qualitative mIU/mL Normal HCG Qual 2 triggr Performed By: #### L700.6800 #### [facility] [address] [place], [place], [address] CBC-COMPLETE BLOOD CNT Collected: 11/03/2017 Status: F Source: GERRI NO DIFF 12:41 PM [facility] REPOSITORY TYPE CODE TESTS RESULT OUT [...] 9.6 Performed By: #### L100.0500, L300.3900 #### [facility] [address] [place], [address] PROTHROMBIN TIME W/INR Collected: 11/03/2017 Status: F Source: GERRI 12:41 PM [facility] REPOSITORY TYPE CODE TESTS RESULT OUT OF RANGE REFERENCE UNITS LAB L300.4150 11.7-14.9 SECONDS Normal PROTIME 12.9 LAB L300.4200 Normal INR 1.0 Performed By: #### L100.0500, L300.3900 #### [facility] [address] [place], [address] BASIC METABOLIC Collected: 11/03/2017 Status: F Source: GERRI PROFILE (BMP) 12:41 PM [facility] REPOSITORY TYPE CODE TESTS RESULT OUT [...] GAP 10 Performed By: #### L500.2500 #### [facility] [address] [place], [address] CHEST PA AND LATERAL Observed: 11/03/2017 Status: F Source: GERRI 12:29 PM [facility] REPOSITORY [facility] Imaging Services [address] [place] [address] Chest PA and Lateral MR#: [id number] Acct: [id number] Name: IFEOMA ASHRAF Rep #: [id number] : 1965 F 52 From: Dimitris Valderrama DO PCP: Sangeetha Irvin DO Status: PRE SDC Study: Chest PA and Lateral Date of Exam: 11/03/17 Exam# [id number] Ordering Dr: Boone Ch MD STUDY: X-RAY [...] Dimitris Valderrama DO at 18:21 EST Tel [phone], Service support , CC: Boone Ch MD; Sangeetha Irvin DO C.O.D. Clerk: Signed Observed: 11/03/2017 Status: F Source: GERRI CULTURE, URINE 9:00 AM [facility] REPOSITORY Urine Culture ORGANISM 1: Klebsiella pneumoniae sp pneum [place] Count >100,000 Klebsiella pneumoniae sp pneum: REACTION [...] <=20 S (NF) indicates non-formulary drug at [facility]. Approval by Infectious Disease Specialist required before non-formulary drugs may be ordered and/or dispensed. Performed By: #### M100.0650 #### [facility] [address] [place], [address] ALLERGIES ALLERGIES DATE TYPE / NAME / CODE REACTION SEVERITY SOURCE CODE 10/03/2018 Drug naproxen Swelling [place] [facility] Allergy/41 sodium/T238815122(R Community 7386274[facility] Repository 10/03/2018 Drug Sulfa (Sulfonamide Rash [place] [facility] Allergy/41 Antibiotics)/P18746 [facility] 1171628( 0491(RXNORM) [facility]) Repository 10/03/2018 Drug Latex, Natural Other [place] [facility] Allergy/41 Rubber/U555914835(R Community 3061423( [facility] OME [facility]) Repository 10/03/2018 Drug amitriptyline/F0060 NIGHTMARES SV [place] Allergy/41 76555(RXNORM) [facility] 6082948([facility]) Repository 06/12/2012 DRUG/06289 ADHESIVE OTHER: SEE C [facility] 1003(SNOME TAPE-SILICONES Other Ethel D CT) Repository 01/05/2011 DRUG AMITRIPTYLINE OTHER: [facility] [place] 2526208(SN Repository OMED CT) 02/24/2007 DRUG LATEX [facility]ASH [facility] Other [place] 1801506(SN Repository OMED CT) 05/23/2006 DRUG NAPROXEN SODIUM [facility]WELLING [facility] Other [place] 9067174(SN Repository OMED CT) 05/23/2006 Drug SULFA (SULFONAMIDE RASH [facility] Class/4195 ANTIBIOTICS) Other Ethel 00990(SNOM Repository ED CT) NG/0809391 NAPROXEN SODIUM [facility] 06(SNOMED [facility]) Repository NG/4959274 AMITRIPTYLINE [facility] 06(SNOMED [facility]) Repository NG/9915876 LATEX [facility] 06(GraffitiOMED [facility] CT) Repository NG/5527054 SULFA (SULFONAMIDE [facility] 06(SNOMED ANTIBIOTICS) Health System CT) Repository NG/4080788 ADHESIVE [facility] 06(SNOMED TAPE-SILICONES Health System CT) Repository ENCOUNTERS ENCOUNTERS ADMIT/DISCHARGE ACCOUNT NUMBER ADMITTING ENCOUNTER LOCATION SOURCE CLASS 10/10/2018 [id number] Ambulatory General acute hospital Hospital ding:NM Repository 10/03/2018/10/03/19 [id number] Ambulatory BMSBuilding: [place] 19 [facility] Repository 10/03/2018/10/03/19 [id number] Ambulatory BMSBuilding: [place] 19 [facility] Repository 10/02/2018 [id number] Ambulatory [facility] ding:LABSPEC Repository 09/29/2018 5107 Ambulatory Building:[facility] Repository 09/25/2018 [id number] Ambulatory [facility] ding:CT Repository 09/18/2018/09/18/20 [id number] Ambulatory BMSBuilding: [facility] 18 [facility] Repository 09/15/2018 [id number] Ambulatory [facility] ding:CT Repository 09/11/2018 [id number] Ambulatory [facility] ding:LAB.FUT Repository URE 09/06/2018 [id number] Ambulatory BMSBuilding: [place] Repository 09/06/2018 [id number] Ambulatory General acute hospital Hospital ding:[facility] Repository 09/04/2018 [id number] Ambulatory [facility] ding:CT Repository 09/04/2018 [id number] Ambulatory General acute hospital Hospital ding:LABSPEC Repository 08/29/2018 [id number] Ambulatory [facility] ding:LAB Repository 07/28/2018 [id number] Ambulatory [facility] ding:LAB Repository 07/19/2018 [id number] Ambulatory [facility] ding:LAB Repository 07/17/2018/07/17/20 [id number] Ambulatory BMSBuilding: [place] 18 [facility] Repository 07/14/2018 [id number] Ambulatory [facility] ding:RAD Repository 07/14/2018/07/14/20 [id number] Ambulatory BMSBuilding: [place] 18 [facility] Repository 06/09/2018/06/09/20 [id number] Ambulatory BMSBuilding: [place] 18 [facility] Repository 06/05/2018 [id number] Ambulatory BMSBuilding: [place] BMS.CF.[facility] Repository 06/05/2018 [id number] Ambulatory [facility] ding:OMD Repository 05/31/2018/05/31/20 [id number] Ambulatory BMSBuilding: [facility] 18 [facility] Repository 05/25/2018 [id number] Ambulatory [facility] ding:CVS Repository 05/05/2018/09/25/20 [id number] [facility] Naseem Kearns [facility] Repository 04/10/2018 [id number] Ambulatory BMSBuilding: [facility] B[facility] Repository 04/07/2018/04/27/20 [id number] [facility] Inpatient [place] [facility] 04/07/2018/04/27/20 [id number] [facility] Inpatient [facility] 18 , AG[facility]OF[facility] MEDICAL Repository CENTERBuildi nRoom: 5425Bed: 04/06/2018/04/07/20 [id number] [place] ding:ED Repository 04/05/2018 [id number] Ambulatory [facility] ding:CT Repository 03/31/2018/03/31/20 [id number] Ambulatory BMSBuilding: [place] [facility] Repository 03/29/2018 [id number] Ambulatory [facility] ding:MARISEL.JAMES Repository TCC 03/24/2018 [id number] Ambulatory [facility] ding:MARISEL.[facility] Repository TCC 03/17/2018 [id number] Ambulatory [facility] ding:OLS.[facility] Repository TCC 03/10/2018 [id number] Ambulatory BMSBuilding: [place] BMS[facility] Repository 03/10/2018 [id number] Ambulatory BMSBuilding: [facility] BMS[facility] Repository 03/08/2018 [id number] Ambulatory BMS [facility] Repository 03/08/2018 [id number] Monique Tamez Ambulatory BMSBuilding: [facility] BMS.[facility] Repository 03/08/2018/03/14/20 [id number] Ambulatory BMSBuilding: [address] Repository 03/08/2018 [id number] Monique Tamez Ambulatory BMSBuilding: [place] BMS.[facility] Repository 03/08/2018 [id number] Monique Tamez Ambulatory BMSBuilding: [place] BMS.[facility] Repository 03/08/2018 [id number] Monique Tamez Ambulatory BMSBuilding: [place] BMS.[facility] Repository 03/08/2018 [id number] Monique Tamez Ambulatory BMSBuilding: [place] BMS.[facility] Repository 03/08/2018 [id number] Monique Tamez Ambulatory BMSBuilding: [place] BMS.[facility] Repository 03/08/2018 [id number] Monique Tamez Ambulatory BMSBuilding: [facility] BMS.[facility] Repository 03/08/2018/03/14/20 [id number] Monique Tamez Inpatient [address] ding:PCURoom Repository : DTM535Yww: 1 03/08/2018/03/14/20 [id number] Ambulatory BMSBuilding: [address] Repository 03/08/2018/03/14/20 [id number] Ambulatory BMSBuilding: [address] Repository 03/03/2018 [id number] Ambulatory BMSBuilding: [place] [facility] Repository 03/02/2018 [id number] Ambulatory [facility] ding:LAB.FUT Repository URE 02/23/2018 [id number] Ambulatory [facility] ding:LABSPEC Repository 01/26/2018 [id number] Ambulatory [facility] ding:LAB Repository 12/13/2017 [id number] Ambulatory BMSBuilding: [place] [facility] Repository 11/28/2017 [id number] Ambulatory BMSBuilding: [place] BMS.[facility] Repository 11/22/2017 [id number] Ambulatory [facility] ding:LAB Repository 11/22/2017 [id number] Ambulatory [facility] ding:CVS Repository 11/17/2017/11/17/19 [id number] Ambulatory BMSBuilding: [place] [facility] Repository 11/10/2017 [id number] Ambulatory BMSBuilding: [place] BMS.[facility] Repository 11/10/2017 [id number] Ambulatory BMSBuilding: [place] BMS.[facility] Repository 11/10/2017 [id number] Ambulatory [facility] ding:CLSP Repository 11/07/2017 [id number] Ambulatory [facility] ding:MTLAB Repository 11/03/2017 [id number] Ambulatory [facility] ding:LABSPEC Repository 11/03/2017/11/03/19 [id number] Ambulatory BMSBuilding: [place] [facility] Repository 11/03/2017/11/03/19 [id number] Ambulatory BMSBuilding: [facility] 18 [facility] Repository PAYERS PAYERS ENCOUNTER GUARANTOR PAYER SUBSCRIBER SOURCE 10/10/2018 IFEOMA S Primary IFEOMA S [facility] [id number] Insurance:ELISABETHA ARON: Community [place] PPOPolicy [id number] Number: Repository [address]Ucn: ([phone]) [id number] [phone] () Date:8787-26-86Dw[address] [address]ZD: 10/10/2018 Secondary NOT GIVENUNK [place] Insurance:SELF PAY [facility] Number: Effective Repository Date:2018-09-29 10/03/2018 IFEOMA S Primary IFEOMA S [place] [id number] Insurance:HUMANA HOOSIERDOB: Community [place] [employer] PPOPolicy [id number], [place] Number: Repository [address]Gve: 330 [id number] [phone] () Date:4294-15-52Er [address] [address]RV: 10/03/2018 Secondary NOT GIVENUNK [place] Insurance:SELF PAY [facility] Number: Effective Repository Date:2018-10-03 10/03/2018 IFEOMA S Primary IFEOMA S [place] [id number] Insurance:HUMANA HOOSIERDOB: Community [place] [employer] PPOPolicy [id number], [place] Number: Repository [address]Nkb: 330 [id number] [phone] () Date:1292-82-61Ms[address] [address]BY: 10/03/2018 Secondary NOT GIVENUNK [place] Insurance:SELF PAY [facility] Number: Effective Repository Date:2018-09-18 10/02/2018 IFEOMA S Primary IFEOMA S [place] [id number] Insurance:HUMANA HOOSIERDOB: Community [place] [employer] PPOPolicy [id number], [place] Number: Repository [address]Ksg: 330 [id number] [phone] () Date:7853-10-57Nc [address] [address]LM: 10/02/2018 Secondary NOT GIVENUNK [place] Insurance:SELF PAY [facility] Number: Effective Repository Date:2018-10-02 09/29/2018 IFEOMA S Primary IFEOMA S OHIP Practices HOOSIERDOB: Insurance:Humana HOOSIERDOB: Repository [id number] [facility] [id number] [address] Number: [address] [place]dequanDUNL[place], [place] [id number] Ada[place], [place] [address]Bro: (330) Date:3569-08-76Wuiz [address]Dap: (HP)Tel: Name:[facility] [address] [place] [address] () [address] [place] [address] () [address]HP: 09/29/2018 Secondary IFEOMA S OHIP Practices Insurance:Medical HOOSIERDOB: Repository [facility] [id number] Number: [address] [id number] DrWellyster, [place] Date:2004-09-26 [address]Zcf: [phone]) [id number] [phone] (HP) Name:[facility] [address], [place] [address]OS: 09/29/2018 Tertiary IFEOMA S OHIP Practices Insurance:Stone of OSIERDOB: Repository [facility] [id number] Number: [address] [id number] DrWooster, [place] Date: 1635-07-75Jmxu [address]Wam: (330) Name:[facility] Box [facility]9705 () [id number], [place] [address]EZ: 09/29/2018 Tertiary IFEOMA S OHIP Practices Insurance:MedicarePoli HOOSIERDOB: Repository cy Number: [id number] [address] Date: 4066-99-58Gvbo [place]stdequ[place], [place] Name:[facility] [facility] [address] [address]Fnh: [phone] [id number], [place] [phone] () [address]LX: 09/29/2018 Tertiary IFEOMA S OHIP Practices Insurance:Medical HOOSIERDOB: Repository 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 [address], [place] [address]SK: 09/29/2018 Tertiary IFEOMA S OHIP Practices Insurance:[employer] Life HOOSIERDOB: Repository Ins/MedicarePolicy [id number] Number: [address] MEBFBJJVEffectHershey, [place] Date: 1426-44-92Lnox [address]Rck: (330) Name:FP [id number] [phone] (HP) [facility] [place] [id number]: 09/25/2018 IFEOMA S Primary IFEOMA S [place] [id number] Insurance:HUMANA HOOSIERDOB: Community [place] [employer] PPOPolicy [id number], [place] Number: Repository [address]Mdl: 330 [id number] [phone] () Date:4592-30-03Mx[address] [address]ME: 09/25/2018 Secondary NOT GIVENUNK [place] Insurance:SELF PAY [facility] Number: Effective Repository Date:2018-09-15 09/18/2018 IFEOMA S Primary IFEOMA S [place] [id number] Insurance:HUMANA HOOSIERDOB: Community [place] [employer] PPOPolicy [id number], [place] Number: Repository [address]Lus: (330) [id number] [phone] () Date:6769-57-12Aq[address] [address]WA: 09/18/2018 Secondary NOT GIVENUNK [place] Insurance:SELF PAY [facility] Number: Effective Repository Date:2018-09-12 09/15/2018 IFEOMA S Primary IFEOMA S [place] [id number] Insurance:HUMANA HOOSIERDOB: Community [place] [employer] PPOPolicy [id number], [place] Number: Repository [address]Lck: (330 [id number] [phone] (HP) Date:3360-81-33Go [address] [address]YD: 09/15/2018 Secondary NOT GIVENUNK [place] Insurance:SELF PAY [facility] Number: Effective Repository Date:2018-09-12 09/11/2018 IFEOMA S Primary IFEOMA S [place] [id number] Insurance:HUMANA HOOSIERDOB: Community [place] [employer] PPOPolicy [id number], [place] Number: Repository [address]Jos: 330 [id number] [phone] (HP) Date:6957-94-79Ad [address] [address]GK: 09/11/2018 Secondary NOT GIVENUNK [place] Insurance:SELF PAY [facility] Number: Effective Repository Date:2018-09-11 09/06/2018 IFEOMA S Primary IFEOMA S [place] [id number] Insurance:HUMANA HOOSIERDOB: Community [place] [employer] PPOPolicy [id number], [place] Number: Repository [address]Szy: (330 [id number] [phone] () Date:5782-33-73Hm [address] [address]SN: 09/06/2018 Secondary NOT GIVENUNK [place] Insurance:SELF PAY [facility] Number: Effective Repository Date:2018-09-06 09/06/2018 IFEOMA S Primary IFEOMA S [place] [id number] Insurance:HUMANA HOOSIERDOB: Community [place] [employer] PPOPolicy [id number], [place] Number: Repository [address]Upx: (330 [id number] [phone] (HP) Date:1566-87-98Gw [address] [address]XI: 09/06/2018 Secondary NOT GIVENUNK [place] Insurance:SELF PAY [facility] Number: Effective Repository Date:2018-09-04 09/04/2018 IFEOMA S Primary IFEOMA S [place] [id number] Insurance:HUMANA HOOSIERDOB: Community [place] [employer] PPOPolicy [id number], [place] Number: Repository [address]Dfw: (330 [id number] [phone] (HP) Date:5416-12-40Bv [address] [address]IC: 09/04/2018 Secondary NOT GIVENUNK [place] Insurance:SELF PAY [facility] Number: Effective Repository Date:2018-09-04 09/04/2018 IFEOMA S Primary IFEOMA S [place] [id number] Insurance:HUMANA HOOSIERDOB: Community [place] [employer] PPOPolicy [id number], [place] Number: Repository [address]Fjm: 330 [id number] [phone] (HP) Date:4443-99-43Dv [address] [address]SF: 09/04/2018 Secondary NOT GIVENUNK [place] Insurance:SELF PAY [facility] Number: Effective Repository Date:2018-09-04 08/29/2018 IFEOMA S Primary IFEOMA S [place] [id number] Insurance:HUMANA HOOSIERDOB: [place] PPOPolicy [id number] Number: Repository [address]Vow: (330 [id number] [phone] (HP) Date:2745-16-19Ho [address] [address]LW: 08/29/2018 Secondary NOT GIVENUNK [place] Insurance:SELF PAY [facility] Number: Effective Repository Date:2018-08-29 07/28/2018 IFEOMA S Primary IFEOMA S Gerri [id number] Insurance:HUMANA HOOSIERDOB: Community [place] PP[place]icy [id number], [place] Number: Repository [address]Xev: (330 [id number] [phone] (HP) Date:1755-61-28Fw [address] [address]SS: 07/28/2018 Secondary NOT GIVENUNK [place] Insurance:SELF PAY [facility] Number: Effective Repository Date:2018-07-28 07/19/2018 IFEOMA S Primary IFEOMA S Gerri [id number] Insurance:HUMANA HOOSIERDOB: [place] [id number] Number: Repository [address]Sdf: 330 [id number] [phone] () Date:1282-83-53Wo [address] [address]JN: 07/19/2018 Secondary NOT GIVENUNK Gerri Insurance:SELF PAY [facility] Number: Effective Repository Date:2018-07-19 07/17/2018 IFEOMA S Primary IFEOMA S [place] [id number] Insurance:HUMANA HOOSIERDOB: [place] PP[place]icy [id number] Number: Repository [address]Spo: 330 [id number] [phone] () Date:1842-18-80Dr [address] [address]EJ: 07/17/2018 Secondary NOT GIVENUNK Gerri Insurance:SELF PAY [facility] Number: Effective Repository Date:2018-07-17 07/14/2018 IFEOMA S Primary IFEOMA S [place] [id number] Insurance:HUMANA HOOSIERDOB: [place] PP[place]icy [id number] Number: Repository [address]Wfd: 330 [id number] [phone] () Date:0024-96-24Pt [address] [address]JR: 07/14/2018 Secondary NOT GIVENUNK [place] Insurance:SELF PAY [facility] Number: Effective Repository Date:2018-07-14 07/14/2018 IFEOMA S Primary IFEOMA S Gerri [id number] Insurance:HUMANA HOOSIERDOB: [place] [id number] Number: Repository [address]Ken: (330 [id number] [phone] (HP) Date:8824-50-08Fx [address] [address]LQ: 07/14/2018 Secondary NOT GIVENUNK Gerri Insurance:SELF PAY [facility] Number: Effective Repository Date:2018-07-14 06/09/2018 IFEOMA S Primary IFEOMA S Gerri [id number] Insurance:HUMANA HOOSIERDOB: [place] [id number] Number: Repository [address]Adf: (330 [id number] [phone] (HP) Date:9610-35-51Wg [address] [address]WJ: 06/09/2018 Secondary NOT GIVENUNK [place] Insurance:SELF PAY [facility] Number: Effective Repository Date:2018-06-09 06/05/2018 IFEOMA S Primary IFEOMA S [place] [id number] Insurance:HUMANA HOOSIERDOB: [place] [id number] Number: Repository [address]Fyf: (330 [id number] [phone] (HP) Date:2490-84-04Kp [address] [address]VV: 06/05/2018 Secondary NOT GIVENUNK Gerri Insurance:SELF PAY [facility] Number: Effective Repository Date:2018-06-05 06/05/2018 IFEOMA S Primary IFEOMA S [place] [id number] Insurance:HUMANA HOOSIERDOB: [place] [id number], [place] Number: Repository [address]Mny: (330 [id number] [phone] (HP) Date:5564-26-03Li [address] [address]XG: 06/05/2018 Secondary NOT GIVENUNK [place] Insurance:SELF PAY [facility] Number: Effective Repository Date:2016-12-16 05/31/2018 IFEOMA [place] Primary IFEOMA [place] [id number] Insurance:HUMANA HOOSIERDOB: Community [place] PP[place]icy [id number] Number: Repository [address]Hgq: 330 [id number] [phone] () Date:2569-23-28Jo[address] [address]AQ: 05/31/2018 Secondary NOT GIVENUNK Gerri Insurance:SELF PAY [facility] Number: Effective Repository Date:2018-05-22 05/25/2018 IFEOMA Pulido Primary IFEOMA [place] [id number] Insurance:HUMANA HOOSIERDOB: Community [place] [id number] Number: Repository [address]Bki: 330 [id number] [phone] () Date:2948-46-59Lx[address] [address]HD: 05/25/2018 Secondary NOT GIVENUNK Gerri Insurance:SELF PAY [facility] Number: Effective Repository Date:2018-05-19 05/05/2018 IFEOMA Primary IFEOMA [place] HOOSIERDOB: Insurance:HUMANA HOOSIERDOB: [facility] SR MEDICARE ADVANTAGE [id number] Hospital 83[facility] [address] Repository , [place] [id number]: Number: 83%[facility] [id number] [place], [place] () Date:Plan Name: [id number] 04/10/2018 IFEOMA [place] Primary [place]EOMA [place]:HU[place]NA HOOSIERDOB: Community [place] MEDICARE PPOPolicy [id number] [facility] Number: Repository [place] [id number]: (330) Date:3047-68-12Ox [phone] () [address] [place] [address]HH: 04/10/2018 Secondary NOT GIVENUNK [place] Insurance:SELF PAY [facility] Number: Effective Repository Date:2018-04-10 04/07/2018 IFEOMA Primary IFEOMA [facility] HOOSIERDOB: Insurance:HUMANA HOOSIERDOB: [facility] [id number] [facility] Number: [place] [id number]: Date: () 04/06/2018 IFEOMA S Primary IFEOMA S [place] Insurance:HU[place]NA HOOSIERDOB: Community [place]1715 MEDICARE PPOPolicy [id number] Taylor Hospital Number: Repository [place] [id number]: (330) Date:6336-90-51Pn [phone] () [address] [place] [address]YK: 04/06/2018 Secondary NOT GIVENUNK Gerri Insurance:SELF PAY [facility] Number: Effective Repository Date:2018-04-06 04/05/2018 IFEOMA S Primary IFEOMA S Gerri [id number] Insurance:HUMANA HOOSIERDOB: [place] PP[place] [id number] [facility] [place] Number[place] Repository [address]Qqa: (330) [id number] [phone] () Date:6592-78-36Ob [address] [place] [address]AV: 04/05/2018 Secondary NOT GIVENUNK [place] Insurance:SELF PAY [facility] Number: Effective Repository Date:2018-04-05 03/31/2018 IFEOMA S Primary IFEOMA S [place] [id number] Insurance:HUMANA HOOSIERDOB: Community [place] PP[place]icy [id number] Mexico Behavioral Health Institute at Las VegasGERRImetter, [place] Number: Repository [address]Pkm: 330 [id number] [phone] () Date:5541-97-04Dw [address] [place] [address]HH: 03/31/2018 Secondary NOT GIVENUNK Gerri Insurance:SELF PAY [facility] Effective Repository Date:2018-03-31 03/29/2018 IFEOMA S Primary Insurance:SELF NOT GIVENUNK [place] [id number] [facility] [place]: Effective [place] Date:2018-03-29 Repository [address]Zal: () 03/24/2018 IFEOMA S Primary Insurance:SELF NOT GIVENUNK [place] [id number] [facility]Y [facility] [place]: Effective [place] Date:2018-03-24 Repository [address]Gye: () 03/17/2018 IFEOMA S Primary Insurance:SELF NOT GIVENUNK [place] [id number] PAY [facility] Number: Effective [place] Date:2018-03-17 Repository 17[address]Tli: () 03/10/2018 IFEOMA S Primary IFEOMA S Gerri [id number] Insurance:HUMANA GOLD HOOSIERDOB: [place] Number: [id number] [place], [place] [id number] Repository [address]Xxc: 330) Date:5290-67-16RP [phone] () [address] [place] [address]RC: 03/10/2018 Secondary NOT GIVENUNK [place] Insurance:SELF PAY [facility] Number: Effective Repository Date:2018-02-23 03/10/2018 IFEOMA S Primary IFEOMA S [place] [id number] Insurance:HUMANA GOLD HOOSIERDOB: [facility] MEDICAREPolicy Number: [id number] [place], [place] [id number] Repository [address]Fbu: (330) Date:6718-00-33IA [phone] () [address] [place] [address]WC: 03/10/2018 Secondary NOT GIVENUNK Gerri Insurance:SELF PAY [facility] Number: Effective Repository Date:2018-02-23 03/08/2018 IFEOMA S Primary IFEOMA S Gerri [id number] Insurance:HUMANA HOOSIERDOB: Community [place] PP[place]icy [id number] Castle [place] Number: Repository [address]Qjt: (330 [id number] [phone] () Date:0929-22-71Eb [address] [address]VP: 03/08/2018 Secondary NOT GIVENUNK [place] Insurance:SELF PAY [facility] Number: Effective Repository Date:2018-03-08 03/08/2018 IFEOMA S Primary IFEOMA S Gerri [id number] Insurance:HUMANA HOOSIERDOB: Community [place] PP[place]icy [id number] Number: Repository [address]Mgh: 330 [id number] [phone] () Date:0940-65-90Hj [address] [address]XP: 03/08/2018 Secondary NOT GIVENUNK [place] Insurance:SELF PAY [facility] Number: Effective Repository Date:2018-03-08 03/08/2018 IFEOMA S Primary IFEOMA S Gerri [id number] Insurance:HUMANA HOOSIERDOB: Community [place] PP[place]icy [id number] Number: Repository [address]Gfj: (330 [id number] [phone] () Date:6365-76-96Ez [address] [address]MT: 03/08/2018 Secondary NOT GIVENUNK Gerri Insurance:SELF PAY [facility] Number: Effective Repository Date:2018-03-08 03/08/2018 IFEOMA S Primary IFEOMA S Gerri [id number] Insurance:HUMANA HOOSIERDOB: Community [place] PP[place]icy [id number] Number: Repository [address]Lql: (330 [id number] [phone] (HP) Date:7909-40-52Ga [address] [address]ZB: 03/08/2018 Secondary NOT GIVENUNK Gerri Insurance:SELF PAY [facility] Number: Effective Repository Date:2018-03-08 03/08/2018 IFEOMA S Primary IFEOMA S Gerri [id number] Insurance:HUMANA HOOSIERDOB: Community [place] PPOPolicy [id number], [place] Number: Repository [address]Rki: 330 [id number] [phone] (HP) Date:5230-40-21Uj [address] [address]OR: 03/08/2018 Secondary NOT GIVENUNK Gerri Insurance:SELF PAY [facility] Number: Effective Repository Date:2018-03-08 03/08/2018 IFEOMA S Primary IFEOMA S [place] [id number] Insurance:HUMANA HOOSIERDOB: Community [place] PP[place]olicy [id number], [place] Number: Repository [address]Uhu: 330 [id number] [phone] (HP) Date:2927-44-40Ei [address] [address]SL: 03/08/2018 Secondary NOT GIVENUNK Gerri Insurance:SELF PAY [facility] Number: Effective Repository Date:2018-03-08 03/08/2018 IFEOMA S Primary IFEOMA S [place] [id number] Insurance:HUMANA HOOSIERDOB: Community [place] PP[place]icy [id number], [place] Number: Repository [address]Sjo: 330 [id number] [phone] (HP) Date:2364-76-90CiJane [place] 27[address]012-[address]WP: 03/08/2018 Secondary NOT GIVENUNK [place] Insurance:SELF PAY [facility] Number: Effective Repository Date:2018-03-08 03/08/2018 IFEOMA [place] Primary IFEOMA S Gerri [id number] Insurance:HUMANA HOOSIERDOB: Community [place] PP[place]olicy [id number], [place] Number: Repository [address]Mzn: 330 [id number] [phone] (HP) Date:7159-44-39Ph [address] [address]EM: 03/08/2018 Secondary NOT GIVENUNK Gerri Insurance:SELF PAY [facility] Number: Effective Repository Date:2018-03-08 03/08/2018 IFEOMA [place] Primary IFEOMA S [place] [id number] Insurance:HUMANA HOOSIERDOB: Community [place] PP[place]olicy [id number], [place] Number: Repository [address]Pnb: 330 [id number] [phone] () Date:7209-14-49Br [address] [address]IM: 03/08/2018 Secondary NOT GIVENUNK Gerri Insurance:SELF PAY [facility] Number: Effective Repository Date:2018-03-08 03/08/2018 IFEOMA [place] Primary IFEOMA S Ger[place] [id number] Insurance:HUMANA HOOSIERDOB: [place] PP[place]icy [id number], [place] Number: Repository [address]Wrn: 330 [id number] [phone] (HP) Date:9912-59-10Cn [address] [address]WV: 03/08/2018 Secondary NOT GIVENUNK [place] Insurance:SELF PAY [facility] Number: Effective Repository Date:2018-03-07 03/08/2018 IFEOMA S Primary IFEOMA S [place]:HUMANA HOOSIERDOB: Community [place]1715 MEDICARE PPOPolicy [id number] [facility] Hospital Number: Repository [place] [id number]: (330) Date:1372-87-76Yy [phone] () [address] [place] [address]PD: 03/08/2018 Secondary NOT GIVENUNK [place] Insurance:SELF PAY [facility] Number: Effective Repository Date:2018-03-08 03/08/2018 IFEOMA S Primary IFEOMA S [place]:HUMANA HOOSIERDOB: [place] [id number] MEDICARE PPOPolicy [id number] [facility] Hospital Number: Repository [place] [id number] [address]Fbp: (330) Date:0690-49-70Oo [phone] () [address] [place] [address]EZ: 03/08/2018 Secondary NOT GIVENUNK [place] Insurance:SELF PAY [facility] Number: Effective Repository Date:2018-03-08 03/03/2018 IFEOMA S Primary IFEOMA S [place] [id number] Insurance:HUMANA GOLD HOOSIERDOB: [place] MED[place]AREPolicy Number: [id number], [place] [id number] Repository [address]Gmg: (330) Date:6020-04-68WK [phone] () [address] [place] [address]FR: 03/03/2018 Secondary NOT GIVENUNK [place] Insurance:SELF PAY [facility] Number: Effective Repository Date:2017-11-03 03/02/2018 IFEOMA S Primary IFEOMA S [place] [id number] Insurance:HUMANA HOOSIERDOB: [place] PPOPolicy [id number] Number: Repository [address]Zlg: (330) [id number] [phone] (HP) Date:8117-40-95Oz [address] [place] [address]QK: 03/02/2018 Secondary NOT GIVENUNK Gerri Insurance:SELF PAY [facility] Number: Effective Repository Date:2018-03-02 02/23/2018 IFEOMA [place] Primary IFEOMA S [place] [id number] Insurance:HUMANA HOOSIERDOB: [place] PPOPolicy [id number] Number: Repository [address]Jfa: 330 [id number] [phone] () Date:9240-22-00Bj [address] [address]DG: 02/23/2018 Secondary NOT GIVENUNK Gerri Insurance:SELF PAY [facility] Number: Effective Repository Date:2018-02-23 01/26/2018 IFEOMA S Primary IFEOMA S [place] [id number] Insurance:HUMANA HOOSIERDOB: [place] PPOPolicy [id number], [place] Number: Repository [address]Pzs: 330 [id number] [phone] () Date:2525-15-14Lj[address] [address]AQ: 01/26/2018 Secondary NOT GIVENUNK Gerri Insurance:SELF PAY [facility] Number: Effective Repository Date:2018-01-26 12/13/2017 IFEOMA Pulido Primary IFEOMA S Gerri [id number] Insurance:HUMANA GOLD HOOSIERDOB: [place] MED[place]ARE[place] Number: [id number], [place] [id number] Repository [address]Fjl: 330) Date:4965-85-76CX [phone] () [address] [place] [address]ZJ: 12/13/2017 Secondary NOT GIVENUNK [place] Insurance:SELF PAY [facility] Number: Effective Repository Date:2017-09-04 11/28/2017 IFEOMA S Primary IFEOMA S [place] [id number] Insurance:HUMANA HOOSIERDOB: [place] PPOPolicy [id number], [place] Number: Repository [address]Epi: 330 [id number] [phone] () Date:0165-66-52As [address] [place] [address]CA: 11/28/2017 Secondary NOT GIVENUNK [place] Insurance:SELF PAY [facility] Number: Effective Repository Date:2017-11-28 11/22/2017 IFEOMA S Primary IFEOMA S [place] [id number] Insurance:HUMANA GOLD HOOSIERDOB: [facility] MEDICAREPolicy Number: [id number], [place] [id number] Repository [address]Pbb: 330) Date:6344-81-95JR [phone] () [address] [place] [address]SG: 11/22/2017 Secondary NOT GIVENUNK Gerri Insurance:SELF PAY [facility] Number: Effective Repository Date:2017-11-22 11/22/2017 IFEOMA S Primary Insurance:SELF NOT GIVENUNK [place] [id number] PAY [facility] [place]: [place] Date:2017-10-21 Repository 126[address]Zys: () 11/17/2017 IFEOMA S Primary IFEOMA S Gerri [id number] Insurance:HUMANA GOLD HOOSIERDOB: [facility] Number: [id number], [place] [id number] Repository [address]Utk: 330) Date:2030-61-50EM [phone] () [address] [place] [address]DH: 11/17/2017 Secondary NOT GIVENUNK [place] Insurance:SELF PAY [facility] Number: Effective Repository Date:2017-10-12 11/10/2017 IFEOMA S Primary IFEOMA S [place] [id number] Insurance:HUMANA GOLD HOOSIERDOB: [place] MEDICAREPolicy Number: [id number], [place] [id number] Repository [address]Qxa: (330) Date:0245-26-15DS [phone] () [address] [place] [address]PZ: 11/10/2017 Secondary NOT GIVENUNK Gerri Insurance:SELF PAY [facility] Number: Effective Repository Date:2017-11-10 11/10/2017 IFEOMA S Primary IFEOMA S [place] [id number] Insurance:HUMANA GOLD HOOSIERDOB: [place] MEDICAREPolicy Number: [id number], [place] [id number] Repository [address]Zjw: (330) Date:2478-97-06EM [phone] () [address] [place] [address]CU: 11/10/2017 Secondary NOT GIVENUNK [place] Insurance:SELF PAY [facility] Number: Effective Repository Date:2017-11-10 11/10/2017 IFEOMA S Primary IFEOMA S [place] [id number] Insurance:MEDICARE HOOSIERDOB: [facility] PART A BPolicy Number: [id number], [place] [id number] Repository [address]Ytj: (330) Date:2017-10-18 [phone] () 11/10/2017 Secondary NOT GIVENUNK Gerri Insurance:SELF PAY [facility] Number: Effective Repository Date:2017-10-18 11/07/2017 IFEOMA S Primary IFEOMA S [place] [id number] Insurance:HUMANA GOLD HOOSIERDOB: [place] MEDICAREPolicy Number: [id number], [place] [id number] Repository [address]Ono: (330) Date:4061-03-01EJ [phone] () [address] [place] [address]MI: 11/07/2017 Secondary NOT GIVENUNK [place] Insurance:SELF PAY [facility] Number: Effective Repository Date:2017-11-07 11/03/2017 IFEOMA S Primary IFEOMA S [place] [id number] Insurance:HUMANA GOLD HOOSIERDOB: [facility] MEDICAREPolicy Number: [id number], [place] [id number] Repository [address]Ozz: (330) Date:3145-33-86EI [phone] () [address] [place] [address]SF: 11/03/2017 Secondary NOT GIVENUNK Gerri Insurance:SELF PAY [facility] Number: Effective Repository Date:2017-11-03 11/03/2017 IFEOMA S Primary IFEOMA S Gerri [id number] Insurance:HUMANA SHABANA HOOSIERDOB: [facility] MEDICAREPolicy Number: [id number], [place] [id number] Repository [address]Thw: (330) Date:7671-44-85RD [phone] () [address] [place] [address]SU: 11/03/2017 Secondary NOT GIVENUNK Gerri Insurance:SELF PAY [facility] Number: Effective Repository Date:2017-10-12 11/03/2017 IFEOMA S Primary IFEOMA S [place] [id number] Insurance:HUMANA SHABANA HOOSIERDOB: [facility] MEDICAREPolicy Number: [id number], [place] [id number] Repository [address]The: (330) Date:2106-79-98CQ [phone] () [address] [place] [address]LV: 11/03/2017 Secondary NOT GIVENUNK [place] Insurance:SELF PAY [facility] Number: Effective Repository Date:2017-10-12
== END ==
PROVIDERS: Family Provider Internal Medicine; PCP Internal Medicine; Referring Provider Internal Medicine; Visit Provider Internal Medicine
DX: R06.02 Shortness of breath (principal)
CPT/HCPCS: 93306; Q9957; A4216; C8929

== ENCOUNTER → 2018-09-15 08:06 | Outpatient (CLI) | payer MEDICARE, SELFPAY ==
[2018-08-29 12:37] VITALS: BMI 33.2
--- NOTE | 2018-09-15 08:14 | CT_ITS ---
STUDY: CT ABDOMEN AND PELVIS WITH CONTRAST REASON FOR EXAM: Female, 53 years old. Abnormal tumor markers. History of NHL. RADIATION DOSAGE (If Supplied By Facility): CTDIvol = ( 29.48 ) mGy, DLP = ( 1157.37 ) mGycm TECHNIQUE: Transaxial images were obtained from the dome of the diaphragm to the symphysis pubis without oral contrast. 100ML ml of Isovue 300 contrast was administered. Sagittal and coronal images were reconstructed. Individualized dose optimization techniques were used for this CT. COMPARISON: CT dated June 15, 2017 FINDINGS: The visualized lung bases are unremarkable. There is a pericardial effusion. The liver is slightly low in attenuation consistent fatty infiltration. There are surgical clips in the gallbladder fossa consistent with a prior cholecystectomy. Normal spleen. Normal pancreas. Normal bilateral adrenal glands. Normal right kidney. Normal left kidney. Normal visualized stomach. Normal small intestine. Normal colon. There is non-visualization of the appendix. There are scattered peripheral calcifications of the abdominal aorta distance with atherosclerosis. Normal inferior vena cava. Normal retroperitoneum. Normal urinary bladder. Normal abdominal wall. There are diffuse degenerative changes of the visualized lumbar spine. There are punctate sclerotic foci noted within the proximal femurs and left acetabulum. CT/Abdomen/Pelvis WITH Contrast IMPRESSION: Pericardial effusion. Mild fatty infiltration of the liver. Punctate sclerotic foci within the proximal femurs and left acetabulum which may reflect underlying bone island, consider bone scan for further characterization. Atherosclerosis. Electronically Signed: Madisyn Garrido MD at 22:39 EST Tel , Service support ,
== END ==
PROVIDERS: Family Provider Internal Medicine; PCP Internal Medicine; Referring Provider Internal Medicine; Visit Provider Internal Medicine
DX: R97.8 Other abnormal tumor markers (principal)
CPT/HCPCS: 74177; Q9967

== ENCOUNTER → 2018-09-25 13:57 | Outpatient (CLI) | payer MEDICARE, SELFPAY ==
[2018-08-29 12:37] VITALS: BMI 33.2
[2018-09-18 10:33] VITALS: BMI 31.3
--- NOTE | 2018-09-25 14:00 | CT_ITS ---
STUDY: CT CERVICAL SPINE WITHOUT CONTRAST REASON FOR EXAM: Female, 53 years old. Neck pain, dizziness RADIATION DOSAGE (If Supplied By Facility): CTDIvol = ( 29.49 ) mGy, DLP = ( 720.89 ) mGycm TECHNIQUE: High resolution transaxial imaging was performed without contrast material. Sagittal and coronal images were reconstructed. Individualized dose optimization techniques were used for this CT. COMPARISON: June 15, 2017 FINDINGS: No acute fractures seen. Normal cervical lordosis. Degenerative changes of the atlantoaxial articulation. Normal odontoid process. There is minimal disc herniation at C5-6 with effacement of the ventral thecal sac and mild canal narrowing. There is moderate narrowing of the left neural foramen at this level. Lung apices unremarkable. Normal appearing thyroid. CT/Spine Cervical without Contras IMPRESSION: There are stable mild degenerative changes at C5-6. There are no acute abnormalities. Electronically Signed: Isabella Montoya MD at 0:17 EST Tel Direct: [phone], Service support ,
--- NOTE | 2018-09-25 14:00 | CT_ITS ---
STUDY: CT BRAIN WITHOUT CONTRAST REASON FOR EXAM: Female, 53 years old. Dizziness RADIATION DOSAGE (If Supplied By Facility): CTDIvol = ( 44.99 ) mGy, DLP = ( 796.11 ) mGycm TECHNIQUE: Transaxial CT imaging of the brain was performed without administration of intravenous contrast material. Individualized dose optimization techniques were used for this CT. COMPARISON: April 06, 2018 FINDINGS: Ventricles: Normal for patient's age. White matter and Cortex: Stable scattered areas of decreased attenuation within the white matter tracts of the supratentorial brain, likely microvascular changes. Normal appearance of the cortex. Basal ganglia and Thalami: Normal in appearance. Brainstem: Normal in appearance. Cerebellum: Normal in appearance. Vascular: No significant abnormalities. No evidence of acute hemorrhage. No evidence of acute ischemia. No evidence of mass effect. Soft tissues: Unremarkable. Bones: Unremarkable. Sinuses: Unremarkable. CT/Brain/Head without Contrast IMPRESSION: No acute intracranial abnormalities. Stable chronic findings. Electronically Signed: Isabella Montoya MD at 0:13 EST Tel Direct: [phone], Service support ,
== END ==
PROVIDERS: Family Provider Internal Medicine; PCP Internal Medicine; Referring Provider Psychiatry & Neurology Neurology; Visit Provider Psychiatry & Neurology Neurology
DX: R42 Dizziness and giddiness (principal); R29.6 Repeated falls; R26.81 Unsteadiness on feet; G96.0 Cerebrospinal fluid leak; M54.2 Cervicalgia
CPT/HCPCS: 70450; 72125

== ENCOUNTER → 2018-10-02 10:06 | Outpatient (CLI) | payer MEDICARE, SELFPAY ==
[2018-09-18 10:33] VITALS: BMI 31.3
[2018-10-02 10:38] LABS: Potassium 4.2 mmol/L (3.5-5.1)
[2018-10-02 13:48] LABS: Calcium,Total 9.5 mg/dL (8.5-10.1)
== END ==
PROVIDERS: Visit Provider Internal Medicine
DX: E78.5 Hyperlipidemia, unspecified (principal)
CPT/HCPCS: 82310; 84132

== ENCOUNTER → 2018-10-10 10:45 | Outpatient (CLI) | payer MEDICARE, SELFPAY ==
[2018-09-18 10:33] VITALS: BMI 31.3
[2018-10-03 14:50] VITALS: BMI 31.3
--- NOTE | 2018-10-10 10:49 | NM_ITS ---
CLINICAL: 43-year-old female with reported history of lymphoma with apparent radiographic abnormalities involving the left acetabulum and bilateral proximal femurs. WHOLE BODY 99m Tc MDP RADIONUCLIDE BONE SCINTIGRAPHY COMPARISON: CT of the abdomen-pelvis report 09/15/2018 FINDINGS: Following the intravenous administration of 21.0 mCi of 99m Tc MDP, whole body bone images reveal: 1. Increased radiopharmaceutical concentration is identified in the sternoclavicular and glenohumeral compartments of the left shoulder, acromioclavicular components of both shoulders, posterior midline sacrum, the right elbow, bilateral knees, the dorsal talotibial compartment of the left ankle, dorsal medial compartments of both ankles, the left forefoot. 2. Enhanced uptake is visualized in the sacrum-coccyx with a component of central photopenia as well as decreased counts statistics defined at the level of the sixth-ninth thoracic vertebra and in the midline posteriorly. 3. The remaining skeletal structures are scintigraphically unremarkable with normal-appearing renal images and urinary bladder activity identified. NM/Bone Scan Whole Body IMPRESSION: 1. The increase in radiopharmaceutical concentration identified in the bilateral shoulders, posterior upper midline sacrum, right elbow, bilateral knees and ankles, the left forefoot is most consistent with degenerative arthritis. 2. Photopenic abnormalities defined in the sacrum-coccyx and mid thoracic spine may be attributed to previous radiation therapeutic intervention if historically appropriate. 3. Meticulous attention paid to the bilateral proximal femurs and left acetabulum demonstrate no evidence of abnormal increased radiopharmaceutical concentration to correlate with the radiographic abnormalities defined on CT of the abdomen-pelvis report dated 09/15/2018. Electronically Signed: Cristi Gabriel DO at 20:15 EST Tel , Service support ,
== END ==
PROVIDERS: Family Provider Internal Medicine; PCP Internal Medicine; Referring Provider Internal Medicine; Visit Provider Internal Medicine
DX: R93.5 Abnormal findings on diagnostic imaging of other abdominal regions, including retroperitoneum (principal)
CPT/HCPCS: 78306

== ENCOUNTER → 2018-10-30 14:16 | Outpatient (CLI) | payer MEDICARE, SELFPAY ==
[2018-10-03 14:50] VITALS: BMI 31.3
[2018-10-30 16:02] LABS: ALB/GLOB Ratio 1.1 RATIO (0.9-2.4); AST(SGOT) 26 U/L (15-37); Alanine Aminotransfer ALT/SGPT 28 U/L (13-56); Albumin, Serum 3.7 g/dL (3.2-5.0); Alkaline Phosphatase 144 U/L (45-117); Anion Gap 13 (5-15); BUN 11 mg/dL (7-18); Calcium,Total 9.4 mg/dL (8.5-10.1); Chloride 96 mmol/L (98-107); Creatinine, Serum 0.92 mg/dL (0.55-1.02); EST Glomerular Filtration Rate 68 mL/min (>60); Est Glom Filt Rate - Afr Amer 82 mL/min (>60); Globulin 3.3 g/dL (2.2-4.2); Glucose 213 mg/dL (74-106); Potassium 3.7 mmol/L (3.5-5.1); Sodium Level 139 mmol/L (136-145); Thyroid Stim Hormone (TSH) 1.11 uIU/mL (0.358-3.74); Vitamin B12 847 pg/mL (211-911)
[2018-11-06 14:06] LABS: Protein C Antigen 75 % (60-150); Protein C, Functional 117 % (73-180)
[2018-11-06 14:17] LABS: Anti-Cardiolipin Ab, IgG, Qn 13 GPL U/mL (0-14); Anti-Cardiolipin Ab, IgM, Qn < 9 MPL U/mL (0-12); Protein S, Free 160 % (57-157); Protein S, Funtional 97 % (63-140); Protein S, Total 84 % (60-150)
== END ==
PROVIDERS: Family Provider Internal Medicine; PCP Internal Medicine; Referring Provider Internal Medicine; Visit Provider Internal Medicine
DX: I82.629 Acute embolism and thrombosis of deep veins of unspecified upper extremity (principal); R06.02 Shortness of breath; R25.1 Tremor, unspecified
CPT/HCPCS: 36415; 80053; 81240; 81241; 82607; 84443; 85302; 85303; 85305; 85306; 86147

== ENCOUNTER → 2019-04-10 | Outpatient (CLI) | payer MEDICARE, SELFPAY ==
[2019-03-09 11:13] VITALS: BMI 31.3
--- NOTE | 2019-04-10 08:01 | US_ITS ---
STUDY: THYROID ULTRASOUND REASON FOR EXAM: Female, 54 years old. Follow-up of thyroid nodules TECHNIQUE: Ultrasound evaluation of the thyroid was performed with real-time and static andrade-scale imaging. COMPARISON: None. FINDINGS: RIGHT LOBE: The right lobe of the thyroid gland measures 4.3 x 1.1 x 0.8 cm. There is a homogeneous echotexture. There are 2 demonstrated complex lesions. They measure 3 x 3 x 2 mm and 2 x 3 x 2 mm. They are in the mid and lower pole. LEFT LOBE: The left lobe of the thyroid gland measures 4.5 x 1.1 x 0.9 cm. There is a homogeneous echotexture. There is 1 demonstrated solid lesion measuring 1.4 x 1.0 x 0.5 in the mid lobe ISTHMUS: The isthmus measures 3 mm . The regional lymph nodes are normal. US/Thyroid IMPRESSION: Benign lesions in both lobes. Not much change since the last study of January 20, 2017 Electronically Signed: Xavier Guerrero MD at 7:54 EDT Tel , Service support ,
== END | disposition home or self-care (01) ==
LOC: OPUS 07:59
PROVIDERS: Family Provider Internal Medicine; PCP Internal Medicine; Referring Provider Internal Medicine; Visit Provider Internal Medicine
DX: E04.1 Nontoxic single thyroid nodule (principal)
CPT/HCPCS: 76536

== ENCOUNTER → 2019-07-02 | Outpatient (CLI) | payer MEDICARE, SELFPAY ==
[2019-06-05 15:14] VITALS: BMI 30.8
[2019-07-02 10:17] LABS: Absolute Lymphocyte Count 1.24 X10^3/uL (0.83-4.51); Absolute Neutrophil Count 3.4 X10^3/uL (2.0-7.7); Basophil# 0.05 X10^3/uL; Basophil% 0.9 % (0-1); Eosinophil# 0.32 X10^3/uL; Eosinophils% 5.9 % (0-5); Hematocrit 37.6 % (37-47); Hemoglobin 10.9 g/dL (12.0-15.0); Lymphocyte # 1.24 X10^3/ul (4.0); Lymphocyte % 22.8 % (19-41); Mean Corpuscular Hgb 26.1 pg (27.0-32.0); Mean Corpuscular Volume 90.2 fL (81-99); Monocyte# 0.42 X10^3/uL; Monocyte% 7.7 % (0-10); NRBC Flagged by Analyzer 0 % (0-5); Neutrophil # 3.39 X10^3/uL (2.7-7.7); Neutrophil % 62.5 % (47-70); POSITIVE MORPHOLOGY YES; Platelet Count 369 K/mm3 (150-450); RBC Distribution Width CV 15.4 % (11.6-14.6); RBC Distribution Width SD 50.9 fl (35.1-43.9); Red Blood Count 4.17 M/mm3 (4.2-5.4); White Blood Count 5.4 K/mm3 (4.4-11.0)
[2019-07-02 10:19] LABS: Differential Indicated SCAN CRITERIA MET
[2019-07-02 10:46] LABS: Hemoglobin A1c 10.8 % (4.2-6.3)
[2019-07-02 10:47] LABS: ALB/GLOB Ratio 1.1 RATIO (0.9-2.4); AST(SGOT) 11 U/L (15-37); Alanine Aminotransfer ALT/SGPT 17 U/L (13-56); Albumin, Serum 3.8 g/dL (3.2-5.0); Alkaline Phosphatase 153 U/L (45-117); Anion Gap 5 (5-15); BUN 11 mg/dL (7-18); BUN/Creat Ratio 10.4 RATIO (10-20); Calcium,Total 9.3 mg/dL (8.5-10.1); Chloride 95 mmol/L (98-107); Cholesterol 96 mg/dL (200); Creatinine, Serum 1.06 mg/dL (0.55-1.02); EST Glomerular Filtration Rate 57 mL/min (>60); Est Glom Filt Rate - Afr Amer 69 mL/min (>60); Globulin 3.4 g/dL (2.2-4.2); Glucose 249 mg/dL (74-106); High Density Lipoprotein 25 mg/dL; Potassium 3.4 mmol/L (3.5-5.1); Protein, Total 7.2 g/dL (6.4-8.2); Sodium Level 135 mmol/L (136-145); Triglycerides 151 mg/dL; Very Low Density Lipoprotein 30 mg/dL (5-40)
[2019-07-02 10:49] LABS: Vitamin B12 801 pg/mL (211-911)
== END | disposition home or self-care (01) ==
LOC: LAB 09:37
PROVIDERS: Family Provider Internal Medicine; PCP Internal Medicine; Referring Provider Internal Medicine; Visit Provider Internal Medicine
DX: E53.8 Deficiency of other specified B group vitamins (principal); E78.2 Mixed hyperlipidemia; E11.9 Type 2 diabetes mellitus without complications
CPT/HCPCS: 36415; 80053; 80061; 82607; 83036; 85025

== ENCOUNTER → 2019-10-08 09:06 | Outpatient (CLI) | payer MEDICARE, SELFPAY ==
[2019-06-05 15:14] VITALS: BMI 30.8
[2019-10-08 10:23] LABS: Absolute Lymphocyte Count 1.51 X10^3/uL (0.83-4.51); Absolute Neutrophil Count 4.6 X10^3/uL (2.0-7.7); Basophil# 0.07 X10^3/uL; Eosinophil# 0.27 X10^3/uL; Eosinophils% 3.8 % (0-5); Hematocrit 39.4 % (37-47); Hemoglobin 12.4 g/dL (12.0-15.0); Lymphocyte # 1.51 X10^3/ul (4.0); Lymphocyte % 21.1 % (19-41); Mean Corp Hgb Conc 31.5 g/dL (32-36); Mean Corpuscular Hgb 25.7 pg (27.0-32.0); Mean Corpuscular Volume 81.6 fL (81-99); Mean Platelet Vol. 9.3 fl (6.2-12.0); Monocyte# 0.68 X10^3/uL; Monocyte% 9.5 % (0-10); NRBC Flagged by Analyzer 0 % (0-5); Neutrophil # 4.59 X10^3/uL (2.7-7.7); Platelet Count 354 K/mm3 (150-450); RBC Distribution Width SD 47.8 fl (35.1-43.9); Red Blood Count 4.83 M/mm3 (4.2-5.4); White Blood Count 7.2 K/mm3 (4.4-11.0)
[2019-10-08 10:38] LABS: Hemoglobin A1c 13.3 % (4.2-6.3)
[2019-10-08 10:41] LABS: Microalbumin:Creatinine Ratio 96.1 mg/g CRE (<30 mg/g CRE)
[2019-10-08 11:06] LABS: ALB/GLOB Ratio 1.1 RATIO (0.9-2.4); AST(SGOT) 23 U/L (15-37); Alanine Aminotransfer ALT/SGPT 29 U/L (13-56); Albumin, Serum 3.7 g/dL (3.2-5.0); Alkaline Phosphatase 134 U/L (45-117); Anion Gap 10 (5-15); BUN 12 mg/dL (7-18); BUN/Creat Ratio 12.1 RATIO (10-20); Calcium,Total 9.1 mg/dL (8.5-10.1); Chloride 93 mmol/L (98-107); Cholesterol 129 mg/dL (200); Creatinine, Serum 0.99 mg/dL (0.55-1.02); EST Glomerular Filtration Rate 62 mL/min (>60); Est Glom Filt Rate - Afr Amer 75 mL/min (>60); Globulin 3.4 g/dL (2.2-4.2); Glucose 307 mg/dL (74-106); High Density Lipoprotein 26 mg/dL; Protein, Total 7.1 g/dL (6.4-8.2); Sodium Level 129 mmol/L (136-145); Thyroid Stim Hormone (TSH) 3.09 uIU/mL (0.358-3.74); Triglycerides 240 mg/dL; Very Low Density Lipoprotein 48 mg/dL (5-40)
== END ==
PROVIDERS: Family Provider Internal Medicine; PCP Internal Medicine; Referring Provider Internal Medicine; Visit Provider Internal Medicine
DX: I10 Essential (primary) hypertension (principal); E03.9 Hypothyroidism, unspecified; E78.2 Mixed hyperlipidemia; E11.65 Type 2 diabetes mellitus with hyperglycemia
CPT/HCPCS: 36415; 80053; 80061; 82043; 82570; 83036; 84443; 85025

== ENCOUNTER → 2019-11-27 09:51 | Outpatient (CLI) | payer MEDICARE, SELFPAY ==
[2019-06-05 15:14] VITALS: BMI 30.8
--- NOTE | 2019-11-27 09:55 | BI_ITS ---
MAMMOGRAPHY - BILATERAL SCREENING REASON FOR EXAM: Female, 54 years old. Routine annual screening examination. PERTINENT HISTORY: Aunt with breast cancer. TECHNIQUE: Digital bilateral breast tomas (3D mammographic acquisition) in the CC and MLO projections. 2-D mediolateral oblique (MLO) and craniocaudad (CC) views of both breasts were obtained. CAD: Full Field Digital Mammography with Computer Added Detection was performed. COMPARISON: Comparison is made with prior study dated November 17, 2016 and August 14, 2015. FINDINGS: Breast Composition: The breasts are almost entirely fatty. There are no dominant masses or suspicious calcifications. A pacemaker battery pack is once again seen in the left axillary region. No other significant abnormalities are identified. There has been no significant change since the prior study. BI/SCREEN MAMM (CAD) W/TOMAS BILAT IMPRESSION: Stable bilateral screening mammogram. Yearly follow-up mammogram recommended. (A) ASSESSMENT CATEGORY: BIRADS Category 2: Benign. A letter regarding these results will be sent to the patient by the facility within 30 days. Approximately 10% of breast cancers are not detected by mammography. A normal mammogram should not delay biopsy of a clinically suspicious abnormality. [id number] Electronically Signed: Prashant Weems, at 12:06 EST , Service support ,
--- NOTE | 2019-11-27 09:58 | BD_ITS ---
STUDY: DUAL ENERGY X-RAY ABSORPTIOMETRY / DXA REASON FOR EXAM: Female, 54 years old. Age of abilio- 42. Pat is 184.9# and 65 and quot; a loss of .75 and quot; per pat. Past hx of taking methotrexate for RA. Type II diabetic and takes Publicity. Takes Synthroid, and Basix. Does not exercise. Hx of a left ankle fx. Hx of surgery for thoracic tumor. Hx of Non Hodgekins lymphoma. Hx of stem cell transplant. Hx of CHF. TECHNIQUE: Bone Mineral Density (BMD) measurements of lumbar spine and bilateral hips were obtained. COMPARISON: Comparison is made with prior examination dated November 17, 2016. FINDINGS: Lumbar Spine (L1-L4): g/cm2 (1.278) / T-score (0.8) / Z-score (1.7) Findings are suggestive of normal bone density with a low fracture risk. Left Femur Total: g/cm2 (0.989) / T-score (-0.2) / Z-score (0.5) Left Femoral Neck: g/cm2 (0.932) / T-score (-0.8) / Z-score (0.3) Right Femur Total: g/cm2 (0.954) / T-score (-0.4) / Z-score (0.3) Right Femoral Neck: g/cm2 (0.912) / T-score (-0.9) / Z-score (0.1) The T-Scores on the most recent prior examination were: Lumbar Spine (L1-L4): There has been worsening of bone density since the previous examination. Left Femur Total: which represents a worsening of 9.6%. Right Femur Total: which represents a worsening of 12.2%. BD/Dexa Bone Density Study IMPRESSION: The patient is considered normal as outlined below according to World [employer] Organization (WHO) criteria with a low fracture risk. There has been worsening of bone density since the previous examination. Reference Information: The T-score is the number of standard deviations above or below the standard which is normal for young adults at their peak bone mineral density. The World Health Organization (WHO) interprets the T-scores as follows: Above -1 Normal bone density Between -1 and -2.5 Osteopenia Equal to / or below -2.5 Osteoporosis As a practical clinical guideline, osteopenia may be graded as follows: Mild -1 through -1.5 Moderate -1.6 through -2.0 Severe -2.1 through -2.4 The Z-score is the number of standard deviations above or below age-matched controls. A Z-score of less than -1.5 would be considered abnormal. References: 1. NIH Osteoporosis and Related Bone Diseases http://www.osteo.org 2. International Society for Clinical Densitometry http://www.iscd.org 3. National Osteoporosis Foundation http://www.nof.org Electronically Signed: Prashant Weems, at 10:28 EST , Service support ,
== END ==
PROVIDERS: PCP Internal Medicine; Referring Provider Internal Medicine; Visit Provider Internal Medicine
DX: Z12.31 Encounter for screening mammogram for malignant neoplasm of breast (principal); Z78.0 Asymptomatic menopausal state
CPT/HCPCS: 77063; 77067; 77080

== ENCOUNTER → 2020-03-13 12:11 | Outpatient (CLI) | payer MEDICARE, SELFPAY ==
[2020-03-11 10:26] VITALS: BMI 29.4
== END ==
PROVIDERS: PCP Internal Medicine; Referring Provider Internal Medicine Medical Oncology; Visit Provider Internal Medicine Medical Oncology
DX: D50.9 Iron deficiency anemia, unspecified (principal)
CPT/HCPCS: 82274

== ENCOUNTER 2020-05-09 19:54 | Emergency (ER) | payer MEDICARE, SELFPAY ==
[2020-03-11 10:26] VITALS: BMI 29.4
[2020-05-09 19:54] VITALS: BP 95/61; PULSE 91; RESP 18; TEMP 36.6; O2SAT 94; BMI 29.0
--- NOTE | 2020-05-09 20:41 | ED.RN ---
SHINGLES TO RT UPPER CHEST, SHOULDER, SCAPULA, SCALP.
[2020-05-09] MEDS: HYDROcodone Bitartrate/Apap 5/325 Tablet PO (21:17)
--- NOTE | 2020-05-09 21:31 | ED.VIS.GEN ---
History of Present Illness Chief Complaint: Other, Pain/Inj Detail of Chief Complaint: shingles pain Informant: Patient Onset: Weeks - 3 Context: Gradual Onset Timing: Continuous Quality: burning. pain. Location: right neck, chest wall Current Severity: Severe Maximum Severity: Severe Worsened by: touching area Relieved by: nothing; taking gabapentin. Associated Symptoms: none Narrative: Patient states she has been diagnosed with shingles on her right upper chest and neck, she was put on gabapentin by her doctor after taking a course of antibiotics and she states the pain is out of control. She has not tried anything else for pain other than Tylenol. She states she is having trouble sleeping the last couple nights because the pain is so severe. - Past Medical History (1) Iron (Fe) deficiency anemia Status: Chronic (2) Chronic combined systolic and diastolic CHF, NYHA class 3 Status: Chronic (3) History of non-Hodgkin's lymphoma Status: Chronic (4) Hyperlipidemia Status: Chronic (5) Hypotension Status: Chronic (6) Non-rheumatic tricuspid valve insufficiency Status: Chronic (7) Nonischemic cardiomyopathy Status: Chronic (8) Nonrheumatic mitral (valve) insufficiency Status: Chronic (9) Secondary pulmonary arterial hypertension Status: Chronic Past Medical History - Allergies and Home Meds Allergies/Adverse Reactions: Allergies amitriptyline Adverse Reaction (Severe, Verified 05/09/20 19:56) Nightmares naproxen sodium [From Aleve] Adverse Reaction (Severe, Verified 05/09/20 19:56) Swelling Nasal swelling - causing difficulty breathing Sulfa (Sulfonamide Antibiotics) Adverse Reaction (Intermediate, Verified 05/09/20 19:56) Rash Latex, Natural Rubber Adverse Reaction (Mild, Verified 05/09/20 19:56) Other irritates/smith the skin amoxicillin Adverse Reaction (Verified 05/09/20 19:56) GI Upset aripiprazole [From Abilify] Adverse Reaction (Verified 05/09/20 19:56) weakness Primary Care Physician: María Elena Montes De Oca DO [Primary Care Provider] - 3-5 Days if not improving Surgical History: pacemaker implantation, - - cholecystecomy Smoking Status: Never smoker - Family History Maternal Family History: Family History (Last Reviewed 03/11/20 @ 10:23 by Monica Castillo) Father CVA (cerebral vascular accident) Diabetes Hypertension Mother Hypertension Brother Diabetes Hypertension Family History: Reports: Unknown Review of Systems General: Denies: Chills, Fever, Sweats Cardiovascular: Reports: Chest pain - Only because shingles rash is located on right upper chest wall. Denies: Palpitations Respiratory: Denies: Dyspnea, Cough, Dyspnea on exertion Musculoskeletal: Reports: Neck pain - Right side where her shingles rash is located. Denies: Back pain, Extremity Pain Skin: Reports: Rash. Denies: Wounds Neurological: Denies: Headache, Weakness, Numbness Physical Exam Vital Signs/Narrative: Vital Signs Temp Pulse Resp BP Pulse Ox 05/09/20 19:54 97.9 F 91 18 95/61 94 Inital Vital Signs reviewed: Yes General: Well nourished, Well developed, No Acute Distress - Initially crying in pain, but consolable Head: Normocephalic, Atraumatic Eyes: Perrl, EOMI ENT: Moist mucous membranes, No rhinorrhea, TM's clear - EAC nontender and clear of any rash/lesions Neck: Supple, - - Full range of motion. Tender where there are several lesions on the right lateral neck into the trapezius. Respiratory: No distress, Chest tenderness - Right upper chest wall at lesions consistent with zoster Skin: Normal color, Rash - Lightened erythematous lesions in dermatomal distribution right upper chest wall and neck consistent with zoster. Several scabbed excoriations, no signs of infection secondarily or cellulitis. No abscess. Neurological: Alert, Oriented x3, Cranial nerves II-XII grossly intact, Normal Strength, Normal Sensation Psychological: Tearful Diagnostic/Tx/Re-eval - Medical Decision Making We discussed options, patient was okay with a short course of Vicodin which she has had in the past and tolerated. Advised to get a stool softener as well. She will follow-up after the weekend with her doctor if she needs to. ED Disposition - Plan for ED Patient: Disposition: Home or Assisted Living Diagnosis: Acute pain associated with herpes zoster Instructions: ED Shingles Prescriptions: Hydrocodone Bitart/Apap 5-325 [[place] 5MG-325MG] 1 tab PO Q4H PRN PRN 2 Days #12 tab PRN Reason: Pain Prescription Printed Referrals: Fast,María Elena, DO [Primary Care Provider] - 3-5 Days if not improving
[2020-05-09 22:01] VITALS: BP 153/59; PULSE 62; RESP 17; O2SAT 95
== END 2020-05-09 22:02 | disposition home or self-care (01) ==
PROVIDERS: Emergency Provider Emergency Medicine; PCP Internal Medicine
DX: B02.9 Zoster without complications (principal); I50.42 Chronic combined systolic (congestive) and diastolic (congestive) heart failure; E78.5 Hyperlipidemia, unspecified; Z85.72 Personal history of non-Hodgkin lymphomas; Z95.0 Presence of cardiac pacemaker; Z79.899 Other long term (current) drug therapy
CPT/HCPCS: 99283

== ENCOUNTER 2020-05-28 18:20 | Emergency (ER) | payer MEDICARE, SELFPAY ==
[2020-05-28 18:21] VITALS: BP 118/69; PULSE 95; RESP 18; TEMP 36.2; O2SAT 94; BMI 26.6
[2020-05-28 18:28] VITALS: BP 118/69; PULSE 106; PULSE 112; RESP 20; TEMP 36.2; O2SAT 97
--- NOTE | 2020-05-28 20:05 | ED.VISSUMM ---
- ER Visit Summary Date of Service: 05/28/20 Chief Complaint: Post shingles pain History of Present Illness: The patient is a 55 F dates that she has shingles in her right side of her neck and upper chest about a month ago. Was initially treated with gabapentin. Recently tried hydrocodone which was not given any pain relief nor does she believe that the gabapentin has helped her with her pain. She has appointment to see pain management within the next several days to a week. Physical Examination: Middle-aged female no acute distress vital signs stable afebrile. HEENT exam unremarkable. Moist wheeze members. Neck nontender. Resolving but still present shingles right lateral neck and upper chest. No secondary infection. No lymphadenopathy. Lungs clear to auscultation bilateral. Heart regular rhythm no murmur. Abdomen soft nontender. Extremities moves all 4. Calves are nontender without edema. Neurologically she is awake alert with no focal motor deficits. Test Results: None Emergency Department Course and Treatment: [place] for pain 10 no refill. Follow-up with pain management. NSAIDs also. Treatment Plan: [place] and NSAIDs. Disposition: Discharge Impression: Post herpetic neuralgia status post shingles History of diabetes History of CHF Status post prior non-Hodgkin's lymphoma This note was generated with mEgo dictation software. It may contain incorrect words, spelling, and punctuation that were not noted in review of the chart prior to signing ED Disposition - Plan for ED Patient: Referrals: María Elena Montes De Oca DO [Primary Care Provider] -
--- NOTE | 2020-05-28 20:07 | DCINST.ED_ITS ---
ED Disposition - Plan for ED Patient: Disposition: Home or Assisted Living Prescriptions: Hydrocodone/Acetaminophen [[place] 7.5-325 Tablet] 1 ea PO 4X/DAY PRN PRN 3 Days #10 tab PRN Reason: Pain Or Fever Prescription Printed Referrals: María Elena Montes De Oca, [Primary Care Provider] - As soon as possible Additional Instructions: [place] and/or Motrin for pain. Follow-up your primary care physician and/or pain management.
[2020-05-28 20:19] VITALS: BP 108/70; PULSE 76; RESP 18
== END 2020-05-28 20:20 | disposition home or self-care (01) ==
PROVIDERS: Emergency Provider Emergency Medicine; PCP Internal Medicine
DX: B02.29 Other postherpetic nervous system involvement (principal); E11.9 Type 2 diabetes mellitus without complications; I50.9 Heart failure, unspecified; Z85.72 Personal history of non-Hodgkin lymphomas; I10 Essential (primary) hypertension; E78.00 Pure hypercholesterolemia, unspecified; Z79.01 Long term (current) use of anticoagulants; Z79.899 Other long term (current) drug therapy; Z79.84 Long term (current) use of oral hypoglycemic drugs
CPT/HCPCS: 99282

== ENCOUNTER → 2020-08-06 07:55 | Outpatient (CLI) | payer MEDICARE, SELFPAY ==
[2019-06-05 15:14] VITALS: BMI 30.8
--- NOTE | 2020-08-06 07:56 | US_ITS ---
STUDY: THYROID ULTRASOUND REASON FOR EXAM: Female, 55 years old. NODULES TECHNIQUE: Ultrasound evaluation of the thyroid was performed with real-time and static andrade-scale imaging. COMPARISON: Comparison is made with prior study dated 04/10/2019. FINDINGS: RIGHT LOBE: The right lobe of the thyroid gland measures 3.6 cm x 1 cm x 0.9 cm. There is a homogeneous echotexture. There is a 2 mm x 2 mm x 2 mm cyst in the midpole. Stable well-defined hypoechoic nodule in the midpole measuring 2 mm x 2 mm x 2 mm. LEFT LOBE: The left lobe of the thyroid gland measures 3.9 cm x 0.9 signed by 1 cm. There is a homogeneous echotexture. Stable 1.1 cm x 0.6 cm x 0.6 cm well-defined solid nodule in the midpole. ISTHMUS: The isthmus measures 2 mm. The regional lymph nodes are normal. US/Thyroid IMPRESSION: Small nodule seen in both lobes of the thyroid as described. Stable examination. Electronically Signed: Prashant Weems, at 10:31 EST , Service support ,
[2020-08-06 09:47] LABS: Anion Gap 9 (5-15); BUN 9 mg/dL (7-18); BUN/Creat Ratio 9.1 RATIO (10-20); Calcium,Total 9.3 mg/dL (8.5-10.1); Chloride 95 mmol/L (98-107); Creatinine, Serum 0.99 mg/dL (0.55-1.02); EST Glomerular Filtration Rate 61 mL/min (>60); Est Glom Filt Rate - Afr Amer 74 mL/min (>60); Glucose 196 mg/dL (74-106); Sodium Level 135 mmol/L (136-145)
== END ==
PROVIDERS: PCP Internal Medicine; Referring Provider Internal Medicine; Visit Provider Internal Medicine
DX: E87.6 Hypokalemia (principal); E04.1 Nontoxic single thyroid nodule
CPT/HCPCS: 36415; 76536; 80048

== ENCOUNTER → 2020-12-18 09:27 | Outpatient (CLI) | payer MEDICARE, SELFPAY ==
[2020-09-09 09:28] VITALS: BMI 26.6
--- NOTE | 2020-12-18 10:29 | RAD_ITS ---
HISTORY: CUMMINGS EXAM: XR Chest 2 Views: COMPARISON: July 14, 2018 FINDINGS: # of images incl. paperwork: 2 Left chest wall, left subclavian approach, single lead cardiac defibrillator remains Lungs are clear. Heart is not enlarged. No acute osseous pathology perceived. Pulmonary vascularity is distinct. No effusions. RAD/Chest PA and Lateral IMPRESSION: No acute cardiopulmonary disease perceived. at 2123 Reported and signed by: Elmer Zhang MD Electronically Signed: Elmer Zhang MD at 21:22 EDT Tel , Service support ,
--- NOTE | 2020-12-19 10:17 | PFT ---
INTRODUCTION: The patient is a 55-year-old female that presents for pulmonary function studies secondary to a diagnosis of dyspnea on exertion. Respiratory therapy reports good patient effort. Bronchodilators were used during testing. INTERPRETATION: Forced expiration spirometry demonstrates no evidence of a large airways obstructive ventilatory defect. There was no significant response to aerosolized bronchodilators. Spirograms are of good quality and plateau normally. Body plethysmography was performed and reveals a decreased TLC to 3.94 L, 74% of predicted, indicative of a mild restrictive ventilatory impairment. Diffusing capacity by single breath CO is reduced at 60% of predicted. IMPRESSION: Mild restrictive ventilatory impairment with symmetric reduction in diffusing capacity.
== END ==
PROVIDERS: PCP Internal Medicine; Referring Provider Internal Medicine; Visit Provider Internal Medicine
DX: R06.00 Dyspnea, unspecified (principal)
CPT/HCPCS: 71046; 94060; 94726; 94729

== ENCOUNTER → 2021-01-28 13:56 | Outpatient (CLI) | payer MEDICARE, SELFPAY ==
[2020-09-09 09:28] VITALS: BMI 26.6
--- NOTE | 2021-01-28 14:02 | CT_ITS ---
STUDY: CT BRAIN WITH AND WITHOUT CONTRAST REASON FOR EXAM: Female, 55 years old. DIZZINESS RADIATION DOSAGE (If Supplied By Facility): CTDIvol = ( 44.99 ) mGy, DLP = ( 1631.58 ) mGycm TECHNIQUE: Transaxial CT imaging of the brain was performed pre and post contrast administration. The examination was performed with intravenous administration of IV 50mL Isovue-300. Individualized dose optimization techniques were used for this CT. COMPARISON: 09/25/2018 FINDINGS: Normal soft tissue structures. Normal calvarium. Normal size ventricles and extra-axial spaces for the patient''s age. Normal white matter tracts of the cerebral hemispheres. Normal basal ganglia and thalami. Normal brainstem. Normal cerebellum. There is no intracranial hemorrhage. There are no findings of an acute ischemic infarction. Normal visualized paranasal sinuses. CT/Brain/Head W/WO Contrast IMPRESSION: Normal unenhanced and enhanced CT scan of the brain. Electronically Signed: Cristi Dean MD at 18:20 EDT Tel , Service support ,
--- NOTE | 2021-01-28 14:02 | CT_ITS ---
STUDY: CT CHEST WITHOUT CONTRAST REASON FOR EXAM: Female, 55 years old. RESTRICTIVE LUNG DISEASE RADIATION DOSAGE (If Supplied By Facility): CTDIvol = ( 19.76 ) mGy, DLP = ( 667.41 ) mGycm TECHNIQUE: Transaxial imaging was performed without the administration of intravenous contrast material. Individualized dose optimization techniques were used for this CT. COMPARISON: 09/04/2018 FINDINGS: Left subclavian pacemaker. The lungs are normal. There is no demonstrated pleural abnormality. There is a small pericardial effusion. There are calcifications of the coronary arteries. Normal mediastinum. Normal hilar regions. There is prominence of the pulmonary hilar arteries without peripheral pulmonary vascular congestion, suggesting pulmonary hypertension. Normal aorta arch and descending thoracic aorta. Normal osseous structures. There is no demonstrated abnormality of the visualized upper abdomen. CT/Chest without Contrast IMPRESSION: Suspect pulmonary arterial hypertension. Electronically Signed: Cristi Dean MD at 18:16 EDT Tel , Service support ,
[2021-01-28 14:16] LABS: CREATININE FINGERSTICK 1.3 mg/dL (0.55-1.02)
== END ==
PROVIDERS: PCP Internal Medicine; Referring Provider Internal Medicine; Visit Provider Internal Medicine
DX: R42 Dizziness and giddiness (principal); J98.4 Other disorders of lung
CPT/HCPCS: 70470; 71250; Q9967

== ENCOUNTER 2021-03-23 00:42 | Inpatient (IN) | payer MEDICARE, SELFPAY ==
[2020-09-09 09:28] VITALS: BMI 26.6
[2021-03-23] VITALS (21 sets, daily range): BP systolic 69–106; BP diastolic 55–76; PULSE 69–86; RESP 14–18; TEMP 36.4–37.1; O2SAT 94–99; BMI 27.6; BMI 25.0
--- NOTE | 2021-03-23 00:51 | EKG12_ITS ---
Test Reason : DIZZY Blood Pressure : / mmHG Vent. Rate : 084 BPM Atrial Rate : 084 BPM P-R Int : 210 ms QRS Dur : 146 ms QT Int : 466 ms P-R-T Axes : 069 -60 090 degrees QTc Int : 550 ms Sinus rhythm with 1st degree A-V block Left axis deviation Left bundle branch block Abnormal ECG Confirmed by LISA KING, MERLYN ([id number]), city editor MARISSA MERLOS ([id number]) on 03/24/2021 9:11:21 AM Referred By: ZUHAIR Confirmed By:MERLYN GONZALEZ MD
--- NOTE | 2021-03-23 00:54 | EX.ED.DYSGE1 ---
HPI History of Present Illness Chief Complaint: Dizziness Detail of Chief Complaint: Patient defines dizziness as being lightheaded Informant: patient Onset/Context/Timing Onset: Weeks (Symptoms started 1 week ago) Context: Sudden Onset Timing: Intermittent Quality: Orthostatic Location: Not applicable Current Severity: Mild Maximum Severity: Severe Worsened by: Standing Relieved by: Initially supine position Associated Symptoms Associated Symptoms: Generalized weakness Narrative Narrative: Is a 56-year-old woman who presents with dizziness, which she defines as being lightheaded. She denies black or maroon-colored stool. She states her stool is normal color. She does have history of iron deficiency anemia. She did have a nosebleed today. When asked if family members think she appears pale she responded yes. She denies headache, visual, ocular auditory symptoms. She denies cardiac or respiratory symptoms. She denies diplopia or vertiginous symptoms. Patient is on a beta-stephanie. She is not on an anticoagulant. Prior similar symptoms: No Recent Illness/Hospitalization: No [facility] Medical History (Updated 03/23/21 @ 04:[address] 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 Deep vein thrombosis (DVT) of brachial vein of left upper extremity Demand ischemia Depression Diffuse large B cell lymphoma Fibromyalgia History of non-Hodgkin's lymphoma Hyperlipidemia Iron deficiency anemia Metabolic encephalopathy Non-rheumatic tricuspid valve insufficiency Nonischemic cardiomyopathy Nonrheumatic mitral (valve) insufficiency Obesity Secondary pulmonary arterial hypertension Sepsis Sleep apnea Subdural hematoma Syncope Thyroid nodule Type 2 diabetes mellitus Type 2 diabetes mellitus without complications Home Medications omeprazole 20 mg PO DAILY 03/07/18 [History Last Taken 03/07/18 08:00 20 mg] levothyroxine 75 mcg PO DAILY 04/06/18 [History Last Taken Unknown] sennosides 8.6 mg tablet 8.6 mg PO QDAY PRN tab 04/10/18 [History Last Taken Unknown] simvastatin 10 mg tablet 10 mg PO .qod tab 01/02/19 [History Last Taken Unknown] lamotrigine 200 mg tablet 400 mg PO QHS 30 Days #60 tab 03/07/20 [History Last Taken Unknown] spironolactone 50 mg tablet 50 mg PO DAILY tab 03/07/20 [History Last Taken Unknown] carvedilol 6.25 mg tablet 6.25 mg PO BID #180 tab 04/15/20 [Rx Last Taken Unknown] digoxin 125 mcg (0.125 mg) tablet 125 mcg PO DAILY #90 tab 06/04/20 [Rx Last Taken Unknown] bupropion HCl 150 mg 24 hr tablet, extended release 150 mg PO QAM 09/09/20 [History Last Taken Unknown] furosemide 40 mg tablet See Rx Instructions PO DAILY #90 tab 09/09/20 [Rx Last Taken Unknown] gabapentin 300 mg capsule 300 mg PO DAILY cap 09/09/20 [History Last Taken Unknown] escitalopram oxalate 20 mg PO DAILY 03/23/21 [History Last Taken Unknown] Allergy/AdvReac Type Severity Reaction Status Date / Time amitriptyline AdvReac Severe Nightmares Verified 03/23/21 00:44 naproxen sodium [From Aleve] AdvReac Severe Swelling Verified 03/23/21 00:44 lisinopril AdvReac Intermediate Dizziness Verified 03/23/21 00:44 Sulfa (Sulfonamide AdvReac Intermediate Rash Verified 03/23/21 00:44 Antibiotics) Latex, Natural Rubber AdvReac Mild Other Verified 03/23/21 00:44 amoxicillin AdvReac GI Upset Verified 03/23/21 00:44 aripiprazole [From Abilify] AdvReac weakness Verified 03/23/21 00:44 Family History Father CVA (cerebral vascular accident) Diabetes Hypertension Mother Hypertension Brother Diabetes Hypertension Surgical History Heel spur surgery History of cataract extraction History of cholecystectomy History of hysteroscopy History of left heart catheterization (08/04/09) History of right heart catheterization (08/2013) History of stem cell transplant Presence of implantable cardioverter-defibrillator (ICD) (11/10/17) S/P thyroid biopsy Social History (Updated 03/23/21 @ 00:[address] Erasmo Prakash MD) household members: family housing: house Smoking Status: Never smoker alcohol intake: never substance use type: does not use caffeine: No ROS ROS ED Constitutional Constitutional ED: Reports weight loss and other Details: Patient reports a 10 pound unintentional weight loss over the past month. ; Denies chills, fever(s), subjective or sweats Eyes Eyes: Denies blurry vision, change in vision or diplopia ENT ENT ED: Reports other Details: Epistaxis left naris ; Denies ear pain, rhinorrhea or sore throat Cardiovascular Cardiovascular: Denies chest pain, orthopnea, palpitations or racing heartbeat Respiratory/Chest Respiratory/Chest: Reports dyspnea on exertion; Denies cough, dyspnea, orthopnea or sputum Gastrointestinal Gastrointestinal: Denies abdominal pain, constipation, diarrhea, melena, nausea or vomiting Genitourinary Genitourinary ED: Denies dysuria, hematuria or urinary frequency Musculoskeletal Musculoskeletal: Denies arthralgias, back pain, myalgias or neck pain Integumentary Denies rash Neurologic Neurologic: Reports weakness; Denies headache(s) or paresthesias Endocrine Endocrinology: Denies polydipsia, polyphagia or polyuria Allergic/Immunologic Allergic/Immunologic ED: Denies urticaria EXAM Physical Exam Const Vital Signs: 03/23/21 00:42 03/23/21 00:44 03/23/21 00:51 Temperature 97.7 F L Temperature Source Oral Pulse Rate 84 Respiratory Rate 16 Respiratory Effort Normal Non-Labored Respiratory Pattern Normal Blood Pressure 69/55 L 84/68 L Blood Pressure Mean 59 73 Pulse Ox 99 Oxygen Delivery Method Room Air 03/23/21 01:59 03/23/21 02:29 03/23/21 03:07 Temperature Temperature Source Pulse Rate Respiratory Rate Respiratory Effort Respiratory Pattern Blood Pressure 90/73 89/63 L 84/69 L Blood Pressure Mean 78 71 74 Pulse Ox Oxygen Delivery Method 03/23/21 03:44 Temperature 97.9 F Temperature Source Oral Pulse Rate 72 Respiratory Rate 15 Respiratory Effort Respiratory Pattern Blood Pressure 89/76 L Blood Pressure Mean 80 Pulse Ox 98 Oxygen Delivery Method Room Air Positive well nourished and well developed General Appearance ED: well developed, NAD, pallor and other Appears pale. Blood pressure is low. Repeat blood pressure is low. HEENT Reports moist mucous membranes HEENT Narrative: Nares patent with blood noted left vestibule. Posterior pharynx unremarkable. Eyes PERRL and EOMs intact bilaterally Eyes Narrative: Uncertain if patient has scleral icterus versus muddy sclera. General Eye ED: Yes pale conjunctiva and scleral icterus Neck no lymphadenopathy, supple and no JVD Neck Narrative: Trachea is midline. There is no thyromegaly Chest Wall inspection of chest normal Resp normal respiratory effort and clear to auscultation bilaterally Effort and Inspection: pain with movement Cardio regular rate, regular rhythm, S1 normal heart sound, S2 normal heart sound and no murmurs GI normal to inspection, nondistended, normoactive bowel sounds and non-tender GI Narrative: No fissures, fistulas or hemorrhoids noted on rectal exam. Patient has formed brown stool in the rectal vault. Palpation: soft Back/Spine no CVA tenderness Thoracic Spine / Upper Back: Negative for thoracic spinal tenderness or paraspinal muscle tenderness Lumbar Spine / Lower Back: Negative for lumbar spinal tenderness Extremity normal to inspection Neuro oriented x3 and CN's II-XII intact bilaterally Sensorium / Orientation: alert Motor Exam: strength 5/5 throughout Psych mental status grossly normal Skin no rashes or lesions noted General Skin Exam: pallor MDM MDM MDM Narrative Medical decision making narrative: Patient denies any change in medication or doses. Since patient is hypotensive 1 L of normal saline was ordered. She appears very pale with pale conjunctive a and question of no erythema in the pulses. She has no apparent acute GI bleed. EKG was obtained to evaluate for acute cardiac ischemia. Appropriate blood work was ordered to assess H&H as well as white count. Comprehensive panel to assess renal function, CO2 anion gap and bilirubin since there is concern she may have scleral icterus. With reported weight loss this may represent a malignancy. X-ray was not ordered since she is hemodynamically unstable and she has no respiratory symptoms or findings. I was informed at approximately 0230 that patient is still hypotensive. She did receive 1 L of normal saline. A second liter of normal saline was ordered. There is a 1.2 g drop in her hemoglobin since June 2020. Creatinine is elevated from at 1.55 and this is a new abnormality. Bilirubin slightly elevated 1.60. She has had elevated bilirubins in the remote past. Alkaline phosphatase is slightly elevated 150. This is nonspecific and only minimally elevated. Suspect patient does not have a reflex tachycardia because she is on beta-stephanie. Lactate is elevated 3.3 and suspect due to hypotension. Urine was obtained to evaluate for UTI. Troponin to rule out non-ST ST elevation CA as the cause of her hypotension. Patient remains hypotensive after 2 L of normal saline. Since there is a drop in hemoglobin and elevation in her creatinine and a lactate of 3.3 will contact hospitalist for admission to stepdown versus ICU. The source of her hypotension is uncertain. Lab Data Attestation: I reviewed the patient's lab results. Labs: Laboratory Results - last 24 hr 03/23/21 03/23/21 03/23/21 00:55 00:55 00:55 WBC 5.8 RBC 4.09 L Hgb 10.5 L Hct 35.6 L MCV 87.0 MCH 25.7 L MCHC 29.5 L RDW Std Deviation 69.1 H RDW Coeff of Manjinder 23.2 H Plt Count 303 MPV 10.2 Immature Gran % (Auto) 0.300 Neut % (Auto) 66.6 Lymph % (Auto) 23.3 [place] % (Auto) 6.6 Eos % (Auto) 2.2 Baso % (Auto) 1.0 Absolute Neuts (auto) 3.9 Absolute Lymphs (auto) 1.35 Nucleated RBC % 0 Target Cells RARE Ovalocytes RARE PT 17.4 H INR 1.5 APTT 29.5 Sodium 137 Potassium 4.1 Chloride 101 Carbon Dioxide 26.0 Anion Gap 10 BUN 22 H Creatinine 1.55 H Estim Creat Clear Calc 37.49 Est GFR (MDRD) Af Amer 44 L Est GFR (MDRD) Non-Af 37 L BUN/Creatinine Ratio 14.2 Glucose 131 H Lactic Acid Calcium 8.7 Total Bilirubin 1.60 H AST 47 H ALT 41 Alkaline Phosphatase 150 H Troponin I High Sens Total Protein 6.9 Albumin 3.8 Globulin 3.1 Albumin/Globulin Ratio 1.2 Urine Color Urine Clarity Urine pH Ur Specific [place] Urine Protein Urine Glucose (UA) Urine Ketones Urine Occult Blood Urine Nitrite Urine Bilirubin Urine Urobilinogen Ur Leukocyte Esterase Urine RBC Urine WBC Ur Squamous Epith Cells Urine Bacteria Urine Mucus 03/23/21 03/23/21 03/23/21 00:55 00:55 02:27 WBC RBC Hgb Hct MCV MCH MCHC RDW Std Deviation RDW Coeff of Manjinder Plt Count MPV Immature Gran % (Auto) Neut % (Auto) Lymph % (Auto) [place] % (Auto) Eos % (Auto) Baso % (Auto) Absolute Neuts (auto) Absolute Lymphs (auto) Nucleated RBC % Target Cells Ovalocytes PT INR APTT Sodium Potassium Chloride Carbon Dioxide Anion Gap BUN Creatinine Estim Creat Clear Calc Est GFR (MDRD) Af Amer Est GFR (MDRD) Non-Af BUN/Creatinine Ratio Glucose Lactic Acid 3.3 H* Calcium Total Bilirubin AST ALT Alkaline Phosphatase Troponin I High Sens 12.8 Total Protein Albumin Globulin Albumin/Globulin Ratio Urine Color Yellow Urine Clarity Clear Urine pH 6.0 Ur Specific [place] 1.010 Urine Protein Negative Urine Glucose (UA) Normal Urine Ketones Negative Urine Occult Blood Negative Urine Nitrite Negative Urine Bilirubin Negative Urine Urobilinogen Normal Ur Leukocyte Esterase Negative Urine RBC 0 SEEN Urine WBC 0 SEEN Ur Squamous Epith Cells 0 SEEN Urine Bacteria 0 SEEN Urine Mucus 0 SEEN EKG Initial EKG: Attestation: I personally reviewed and interpreted this EKG as follows: Interpretation: Sinus Rhythm (Rhythm with a first-degree AV block and ventricular rate of 84. WA interval is 210 ms. QRS duration is prolonged at 146 ms and QRS complex has morphology left bundle branch block. [place] is to the left. QT intervals 466 ms.) Critical Care Time Critical Care Time: Yes Critical care time (excluding procedures): 30-74 minutes (34 minutes), Including time spent: (Obtaining history, physical exam, interpretation of laboratory results, initiation of treatment for hypotension, review of prior records), Discussing w/Patient &/or Family/Steward/Stewardess Dining Room, Discussing w/Consultants and Arranging Admission or Transfer Discharge Plan Dx/Rx/DC Orders Clinical Impression: Acute hypotension, Nonischemic cardiomyopathy, Anemia, Acute kidney injury, Acidosis, lactic Disposition Disposition: [facility]
[2021-03-23] MEDS: 0.9% Normal Saline 1,000 ML 1000 ML IV ×2 (01:02→02:36)
[2021-03-23 01:08] LABS: Absolute Lymphocyte Count 1.35 X10^3/uL (0.83-4.51); Absolute Neutrophil Count 3.9 X10^3/uL (2.0-7.7); Basophil# 0.06 X10^3/uL; Differential Indicated SCAN CRITERIA MET; Eosinophil# 0.13 X10^3/uL; Eosinophils% 2.2 % (0-5); Hematocrit 35.6 % (37-47); Hemoglobin 10.5 g/dL (12.0-15.0); Lymphocyte # 1.35 X10^3/ul (0.83-4.51); Lymphocyte % 23.3 % (19-41); Mean Corp Hgb Conc 29.5 g/dL (32-36); Mean Corpuscular Hgb 25.7 pg (27.0-32.0); Mean Platelet Vol. 10.2 fl (6.2-12.0); Monocyte# 0.38 X10^3/uL; Monocyte% 6.6 % (0-10); NRBC Flagged by Analyzer 0 % (0-5); Neutrophil # 3.85 X10^3/uL (2.7-7.7); Neutrophil % 66.6 % (47-70); POSITIVE MORPHOLOGY YES; Platelet Count 303 K/mm3 (150-450); RBC Distribution Width CV 23.2 % (11.6-14.6); RBC Distribution Width SD 69.1 fl (35.1-43.9); Red Blood Count 4.09 M/mm3 (4.2-5.4); White Blood Count 5.8 K/mm3 (4.4-11.0)
[2021-03-23 01:16] LABS: International Normalized Ratio 1.5; Prothrombin Time (Protime)PT. 17.4 SECONDS (11.7-14.9)
[2021-03-23 01:17] LABS: Partial Thromboplast Time 29.5 Seconds (24.1-36.2)
[2021-03-23 01:23] LABS: Ovalocyte RARE; Target Cells RARE
[2021-03-23 01:24] LABS: ALB/GLOB Ratio 1.2 RATIO (0.9-2.4); AST(SGOT) 47 U/L (15-37); Alanine Aminotransfer ALT/SGPT 41 U/L (13-56); Albumin, Serum 3.8 g/dL (3.2-5.0); Alkaline Phosphatase 150 U/L (45-117); Anion Gap 10 (5-15); BUN 22 mg/dL (7-18); BUN/Creat Ratio 14.2 RATIO (10-20); Calcium,Total 8.7 mg/dL (8.5-10.1); Chloride 101 mmol/L (98-107); Creatinine, Serum 1.55 mg/dL (0.55-1.02); EST Glomerular Filtration Rate 37 mL/min (>60); Est Glom Filt Rate - Afr Amer 44 mL/min (>60); Estimated Creatinine Clearance 37.49 ml/min; Globulin 3.1 g/dL (2.2-4.2); Glucose 131 mg/dL (74-106); Potassium 4.1 mmol/L (3.5-5.1); Protein, Total 6.9 g/dL (6.4-8.2); Sodium Level 137 mmol/L (136-145)
[2021-03-23 01:43] LABS: Lactic Acid 3.3 mmol/L (0.4-1.9)
[2021-03-23 02:31] LABS: Bacteria 0 SEEN /hpf (None Seen); Mucous, Urine 0 SEEN /hpf (<or=2+); Red Blood Cells-Urine 0 SEEN /hpf (0-5); Squamous Epithelial Cells - UA 0 SEEN /hpf (5-10); White Blood Cells 0 SEEN /hpf (0-5)
[2021-03-23 02:33] LABS: Color, Urine Yellow (Yellow); Glucose, Dipstick Normal (Normal); Ketone-Dipstick Negative (Negative); Leukocyte Esterase-Dipstick Negative /ul (Negative); Nitrite-Dipstick Negative (Negative); Occult Blood-Urine Negative /ul (Negative); Protein-Dipstick Negative (Negative); Urine Bilirubin Dipstick Negative (Negative); Urine Clarity Clear (Clear); Urine Urobilinogen Normal (Normal)
[2021-03-23 02:36] LABS: Troponin-I HS 12.8 pg/mL (3.0-53.7)
--- NOTE | 2021-03-23 04:29 | PCM.HP.STD ---
[facility] - General General Date of Admission: 03/23/21 Date of Service: 03/23/21 Chief Complaint: Dizziness. [facility] Narrative CALVIN ESTRADA, is a 56 F with past medical history as mentioned below presented to the emergency room because of dizziness. Her symptoms started around 2 weeks ago, has been intermittent, dizziness up on standing, has been progressive and now even at rest. No significant associated symptoms. She denied chest pain, palpitation, syncope or presyncope. She denied fever or chills. She denied cough or sputum production. She denied abdominal pain, black stool or hematochezia. She states that usually, her blood pressure runs low. She had a history of nonischemic cardiomyopathy with ejection fraction 15% and she has been on beta-blockers, Lasix and spironolactone. She had a history of hypothyroidism and she has been on levothyroxine. She had a history of depression and she stated that recently, she was started on bupropion. In the emergency department, initial blood pressure was 69/55, improved up to 80s and 100 systolic after IV fluid bolus. Her routine blood work was remarkable for chronic anemia, BUN is 22, creatinine is 1.55. Lactic acid was 3.3. Urinalysis showed no evidence of infection. EKG revealed chronic LBBB, no acute ischemic changes. She is being admitted for acute on chronic hypotension, acute kidney injury and lactic acidosis. COUNT INCLUDES THE [facility] Medical History (Updated 03/23/21 @ 04:[address] Jesu Rodriguez MD) Cardiomyopathy in other diseases classified elsewhere Chronic combined systolic and diastolic CHF, NYHA class 3 Decomp laminectomy to remove T6-7 mass Deep vein thrombosis (DVT) of brachial vein of left upper extremity Demand ischemia Depression Diffuse large B cell lymphoma Fibromyalgia History of non-Hodgkin's lymphoma Hyperlipidemia Iron deficiency anemia Non-rheumatic tricuspid valve insufficiency Nonischemic cardiomyopathy Nonrheumatic mitral (valve) insufficiency Obesity Secondary pulmonary arterial hypertension Sepsis Sleep apnea Subdural hematoma Thyroid nodule Type 2 diabetes mellitus without complications Home Medications omeprazole 20 mg PO DAILY 03/07/18 [History Last Taken 03/07/18 08:00 20 mg] levothyroxine 75 mcg PO DAILY 04/06/18 [History Last Taken Unknown] sennosides 8.6 mg tablet 8.6 mg PO QDAY PRN tab 04/10/18 [History Last Taken Unknown] simvastatin 10 mg tablet 10 mg PO .qod tab 01/02/19 [History Last Taken Unknown] lamotrigine 200 mg tablet 400 mg PO QHS 30 Days #60 tab 03/07/20 [History Last Taken Unknown] spironolactone 50 mg tablet 50 mg PO DAILY tab 03/07/20 [History Last Taken Unknown] carvedilol 6.25 mg tablet 6.25 mg PO BID #180 tab 04/15/20 [Rx Last Taken Unknown] digoxin 125 mcg (0.125 mg) tablet 125 mcg PO DAILY #90 tab 06/04/20 [Rx Last Taken Unknown] bupropion HCl 150 mg 24 hr tablet, extended release 150 mg PO QAM 09/09/20 [History Last Taken Unknown] furosemide 40 mg tablet See Rx Instructions PO DAILY #90 tab 09/09/20 [Rx Last Taken Unknown] gabapentin 300 mg capsule 300 mg PO DAILY cap 09/09/20 [History Last Taken Unknown] escitalopram oxalate 20 mg PO DAILY 03/23/21 [History Last Taken Unknown] Allergy/AdvReac Type Severity Reaction Status Date / Time amitriptyline AdvReac Severe Nightmares Verified 03/23/21 00:44 naproxen sodium [From Aleve] AdvReac Severe Swelling Verified 03/23/21 00:44 lisinopril AdvReac Intermediate Dizziness Verified 03/23/21 00:44 Sulfa (Sulfonamide AdvReac Intermediate Rash Verified 03/23/21 00:44 Antibiotics) Latex, Natural Rubber AdvReac Mild Other Verified 03/23/21 00:44 amoxicillin AdvReac GI Upset Verified 03/23/21 00:44 aripiprazole [From Abilify] AdvReac weakness Verified 03/23/21 00:44 Family History Father CVA (cerebral vascular accident) Diabetes Hypertension Mother Hypertension Brother Diabetes Hypertension Surgical History Heel spur surgery History of cataract extraction History of cholecystectomy History of hysteroscopy History of left heart catheterization (08/04/09) History of right heart catheterization (08/2013) History of stem cell transplant Presence of implantable cardioverter-defibrillator (ICD) (11/10/17) S/P thyroid biopsy Social History (Updated 03/23/21 @ 00:[address] Erasmo Prakash MD) household members: family housing: house Smoking Status: Never smoker alcohol intake: never substance use type: does not use caffeine: No ROS Constitutional Constitutional: Denies anorexia, chills, fatigue, fever(s) or malaise Eyes Eyes: Denies blurry vision, change in eye color, change in vision, double vision or eye pain ENT HEENT: Denies ear discharge, ear pain, epistaxis, headache(s), nasal congestion, post nasal drip or sore throat Cardiovascular Cardiovascular: Reports lightheadedness; Denies chest pain, dyspnea on exertion, edema, orthopnea, palpitations or syncope Respiratory/Chest Respiratory/Chest: Denies cough, dyspnea, hemoptysis, productive cough, shortness of breath at rest or wheezing Gastrointestinal Gastrointestinal: Denies abdominal pain, constipation, diarrhea, hematemesis, hematochezia, melena, nausea or vomiting Genitourinary Genitourinary: Denies burning urination, dysuria, hematuria, urinary hesitancy or urinary urgency Musculoskeletal Musculoskeletal: Denies arthralgias, back pain, joint pain, joint swelling, myalgias or neck pain Neurologic Neurologic: Denies confusion, dizziness, focal weakness, headache(s), numbness, paresthesias, seizures, tingling, tremor(s) or vertigo Psychiatric Psychiatric: Reports depression; Denies anxiety, hallucinations, homicidal ideation or suicidal ideation Endocrine Endocrinology: Denies change in body appearance, cold intolerance, heat intolerance, polydipsia or polyuria Hematologic/Lymphatic Hematologic/Lymphatic: Denies easy bleeding, easy bruising or lymphadenopathy Allergic/Immunologic Allergic/Immunologic: Denies itchy eyes, rhinitis, throat swelling, tongue swelling, hives, urticaria or wheezing Vital Signs Vital Signs Vital Signs: 03/23/21 00:42 03/23/21 00:44 03/23/21 00:51 Temperature 97.7 F L Temperature Source Oral Pulse Rate 84 Respiratory Rate 16 Respiratory Effort Normal Non-Labored Respiratory Pattern Normal Blood Pressure 69/55 L 84/68 L Blood Pressure Mean 59 73 Pulse Ox 99 Oxygen Delivery Method Room Air 03/23/21 01:59 03/23/21 02:29 03/23/21 03:07 Temperature Temperature Source Pulse Rate Respiratory Rate Respiratory Effort Respiratory Pattern Blood Pressure 90/73 89/63 L 84/69 L Blood Pressure Mean 78 71 74 Pulse Ox Oxygen Delivery Method 03/23/21 03:44 Temperature 97.9 F Temperature Source Oral Pulse Rate 72 Respiratory Rate 15 Respiratory Effort Respiratory Pattern Blood Pressure 89/76 L Blood Pressure Mean 80 Pulse Ox 98 Oxygen Delivery Method Room Air Weight Weight: 171 lb 8.314 oz Body Mass Index (BMI) 27.6 Physical Exam Const alert, oriented x3, no apparent distress and no limitations General Appearance: cooperative HEENT normocephalic, head/scalp atraumatic, external ears normal, external nose normal and moist oral mucous membranes Eyes PERRL, EOMs intact bilaterally, conjunctivae normal and no scleral icterus General Eye: normal appearance of both eyes Neck no lymphadenopathy, supple, no meningeal signs, no JVD and no carotid bruits Lymph Lymphatic: no lymphadenopathy noted Resp normal respiratory effort, normal air movement and clear to auscultation bilaterally Auscultation: Negative for crackles, rales, rhonchi or wheezes Cardio regular rate, regular rhythm, S1 normal heart sound, S2 normal heart sound, no murmurs and no JVD GI normal to inspection, nondistended, normoactive bowel sounds, soft to palpation, non-tender and non-distended; Negative for hepatosplenomegaly Extremity normal to inspection, full ROM and no clubbing, cyanosis or edema Skin no rashes or lesions noted, no wounds and no petechiae Neuro oriented x3, CN's II-XII intact bilaterally and moves all extremities Sensorium / Orientation: alert Speech: speech normal Motor Exam: strength 5/5 throughout Psych mental status grossly normal and affect normal Appearance: appropriate Results Lab / Micro Data Result Diagrams: 03/23/21 00:55 03/23/21 00:55 Labs: Laboratory Results - last 24 hr 03/23/21 03/23/21 03/23/21 00:55 00:55 00:55 WBC 5.8 RBC 4.09 L Hgb 10.5 L Hct 35.6 L MCV 87.0 MCH 25.7 L MCHC 29.5 L RDW Std Deviation 69.1 H RDW Coeff of Manjinder 23.2 H Plt Count 303 MPV 10.2 Immature Gran % (Auto) 0.300 Neut % (Auto) 66.6 Lymph % (Auto) 23.3 [place] % (Auto) 6.6 Eos % (Auto) 2.2 Baso % (Auto) 1.0 Absolute Neuts (auto) 3.9 Absolute Lymphs (auto) 1.35 Nucleated RBC % 0 Target Cells RARE Ovalocytes RARE PT 17.4 H INR 1.5 APTT 29.5 Sodium 137 Potassium 4.1 Chloride 101 Carbon Dioxide 26.0 Anion Gap 10 BUN 22 H Creatinine 1.55 H Estim Creat Clear Calc 37.49 Est GFR (MDRD) Af Amer 44 L Est GFR (MDRD) Non-Af 37 L BUN/Creatinine Ratio 14.2 Glucose 131 H Lactic Acid Calcium 8.7 Total Bilirubin 1.60 H AST 47 H ALT 41 Alkaline Phosphatase 150 H Troponin I High Sens Total Protein 6.9 Albumin 3.8 Globulin 3.1 Albumin/Globulin Ratio 1.2 Urine Color Urine Clarity Urine pH Ur Specific [place] Urine Protein Urine Glucose (UA) Urine Ketones Urine Occult Blood Urine Nitrite Urine Bilirubin Urine Urobilinogen Ur Leukocyte Esterase Urine RBC Urine WBC Ur Squamous Epith Cells Urine Bacteria Urine Mucus 03/23/21 03/23/21 03/23/21 00:55 00:55 02:27 WBC RBC Hgb Hct MCV MCH MCHC RDW Std Deviation RDW Coeff of Manjinder Plt Count MPV Immature Gran % (Auto) Neut % (Auto) Lymph % (Auto) [place] % (Auto) Eos % (Auto) Baso % (Auto) Absolute Neuts (auto) Absolute Lymphs (auto) Nucleated RBC % Target Cells Ovalocytes PT INR APTT Sodium Potassium Chloride Carbon Dioxide Anion Gap BUN Creatinine Estim Creat Clear Calc Est GFR (MDRD) Af Amer Est GFR (MDRD) Non-Af BUN/Creatinine Ratio Glucose Lactic Acid 3.3 H* Calcium Total Bilirubin AST ALT Alkaline Phosphatase Troponin I High Sens 12.8 Total Protein Albumin Globulin Albumin/Globulin Ratio Urine Color Yellow Urine Clarity Clear Urine pH 6.0 Ur Specific [place] 1.010 Urine Protein Negative Urine Glucose (UA) Normal Urine Ketones Negative Urine Occult Blood Negative Urine Nitrite Negative Urine Bilirubin Negative Urine Urobilinogen Normal Ur Leukocyte Esterase Negative Urine RBC 0 SEEN Urine WBC 0 SEEN Ur Squamous Epith Cells 0 SEEN Urine Bacteria 0 SEEN Urine Mucus 0 SEEN Assessment & Plan Assessment/Plan (1) Lactic acidosis: (2) Acute hypotension: (3) Acute kidney injury: (4) Nonischemic cardiomyopathy: (5) Iron (Fe) deficiency anemia: QUALIFIERS: Iron deficiency anemia type: unspecified iron deficiency Qualified Code(s): D50.9 - Iron deficiency anemia, unspecified (6) Presence of implantable cardioverter-defibrillator (ICD): (7) Hyperlipidemia: QUALIFIERS: Hyperlipidemia type: unspecified Qualified Code(s): E78.5 - Hyperlipidemia, unspecified (8) Chronic combined systolic and diastolic CHF, NYHA class 3: PLAN: This is a 56 years old female patient presented to the emergency room because of dizziness, found to have hypotension complicated by acute kidney injury and lactic acidosis and upon revision of her chart, usually her blood pressure runs low. #1 acute on chronic hypotension: In the setting of nonischemic cardiomyopathy, chronic CHF with ejection fraction 15%. Her blood pressure recently was mid 80s up to 100 systolic. On arrival to ED, blood pressure was 69/55, was afebrile, not tachycardic and pulse ox was maintained on room air. EKG reviewed as above. She had an echocardiogram done on August, that showed ejection fraction of 15%. Blood pressure improved after IV fluids. Patient reported no recent adjustment of her antihypertensive medications or diuretics. Plan: Admit to PCU, cardiac monitoring, complete bedrest, gentle IV fluids for hydration, close monitoring of volume status to avoid volume overload, 2D echocardiogram, decrease Coreg down to 3.125 mg p.o. twice daily, hold Lasix for now, decrease Aldactone to 25 mg p.o. daily, repeat CBC and BMP tomorrow morning, orthostatic vitals tomorrow morning, PT OT evaluation and treatment. #2 acute kidney injury: Secondary to hypotension and hypoperfusion. Baseline kidney function is normal. Admission creatinine is 1.55. Plan for gentle IV fluids for hydration, monitor volume status, repeat BMP tomorrow morning, hold Lasix. #3 lactic acidosis: Again this is due to hypoperfusion. I doubt infection, sepsis or severe sepsis. Urinalysis was unremarkable. Patient denied any symptoms suggestive of pneumonia. Plan: Blood culture, IV fluids, repeat lactic acid in 3 hours. No indication for IV antibiotics. #4 chronic combined systolic and diastolic CHF: Compensated, stable. Coreg and Aldactone adjusted as above, hold Lasix for now, close monitoring volume status. #5 nonischemic cardiomyopathy: Status post ICD, ejection fraction was 50% on August,. Plan as above, 2D echocardiogram. #6 hypothyroidism: Continue levothyroxine, check TSH. #7 hyperlipidemia: Continue statins. #8 depression: Continue escitalopram and bupropion. #9 DVT prophylaxis: INR is 1.5. This note was generated with [employer] dictation software. It may contain incorrect words, spelling, and punctuation that were not noted in checking the note before signing. Charges/Coding Visit Charges Inpatient E&M: 86737 Init Hosp L3
--- NOTE | 2021-03-23 04:40 | ECHOD_ITS ---
Reason For Study: CHF Procedure This was a 2D Doppler, Color Flow transthoracic echocardiogram. Exam performed portable in patient room. Left Ventricle Mildly dilated left ventricle. The estimated ejection fraction is 15 %. Stage 3 diastolic dysfunction. There is severe global hypokinesis of the left ventricle. Right Ventricle Normal RV size. ICD or pacer leads identified within the right ventricle. Normal systolic function. Mitral Valve Mild-Moderate (1-2+) eccentric mitral valve insufficiency. Tricuspid Valve Normal tricuspid valve. Mild to moderate (1-2+) tricuspid valve insufficiency. Pulmonary artery systolic pressure is 44 mmHg. Aortic Valve Trisinus/trileaflet aortic valve. Mild (1+) eccentric aortic valve insufficiency. Pulmonic Valve Normal pulmonic valve. Great Vessels Normal aortic root. The pulmonary artery is normal size. Normal inferior vena cava. Pericardium/Pleural No pericardial effusion. MMode/2D Measurements & Calculations LVIDd: 5.7 cm IVSd: 0.65 cm Ao root diam: 3.3 cm LVIDs: 5.5 cm LVPWd: 0.98 cm LA dimension: 5.3 cm RVDd: 4.4 cm FS: 3.8 % LAV(MOD-bp): 72.5 ml LVAd ap4: 41.4 cm2 SV(MOD-sp4): 31.1 ml LAV(MOD-bp) Indexed: 40.8 ml/m2 LVLd ap4: 7.9 cm LAV(MOD-sp2): 63.4 ml EDV(MOD-sp4): 173.2 ml LAV(MOD-sp4): 78.6 ml EDV(sp4-el): 184.2 ml LVAs ap4: 36.7 cm2 LVLs ap4: 7.8 cm ESV(MOD-sp4): 142.1 ml ESV(sp4-el): 147.3 ml EF(MOD-sp4): 17.9 % EF(sp4-el): 20.0 % SV(sp4-el): 36.9 ml LA A4 area: 23.1 cm2 RA A4 area: 18.8 cm2 Time Measurements MV dec time: 0.15 sec Doppler Measurements & Calculations MV E max nadine: 106.8 cm/sec MV V2 max: 119.1 cm/sec MV P1/2t max nadine: 119.5 cm/sec MV A max nadine: 41.5 cm/sec MV max P.7 mmHg MV P1/2t: 52.1 msec MV E/A: 2.6 MV V2 mean: 51.4 cm/sec MV mean P.5 mmHg MV dec slope: 672.4 cm/sec2 MV V2 VTI: 23.2 cm MVA(P1/2t): 4.2 cm2 Ao V2 max: 80.9 cm/sec AI end-d nadine: 238.3 cm/sec LV V1 max: 60.1 cm/sec Ao max P.6 mmHg LV V1 max P.4 mmHg PA V2 max: 62.6 cm/sec TR max nadine: 307.6 cm/sec TR max P.9 mmHg ECHO/Echo Complete Interpretation Summary Mildly dilated left ventricle. The estimated ejection fraction is 15 %. There is severe global hypokinesis of the left ventricle. Stage 3 diastolic dysfunction. Compared to previous study, the left ventricular systolic function is the same. . Ordering Physician: Jesu Rodriguez Referring Physician: María Elena Montes De Oca Performed By: Brent Garces RCS
[2021-03-23 05:03] LABS: Reflex Lactate? Y
[2021-03-23] MEDS: Lactated Ringers 1,000 ML 75 ML IV (05:05)
[2021-03-23 05:14] LABS: Thyroid Stim Hormone (TSH) 5.31 uIU/mL (0.358-3.74)
[2021-03-23] MEDS: Levothyroxine 75 MCG Tablet PO (06:07)
[2021-03-23 06:40] LABS: Lactic Acid 2.1 mmol/L (0.4-1.9)
[2021-03-23] MEDS: Pantoprazole Sodium 20 MG Tablet PO (08:07)
[2021-03-23] MEDS: buPROPion (XL) 150 MG TABLET.XL PO (08:07)
[2021-03-23] MEDS: Gabapentin 300 MG Capsule PO (08:08)
[2021-03-23] MEDS: Digoxin 125 MCG Tablet PO (08:08)
[2021-03-23] MEDS: Carvedilol 3.125 MG TABLET PO ×2 (08:08→21:53)
[2021-03-23] MEDS: Spironolactone 25 MG Tablet PO (08:08)
[2021-03-23] MEDS: Escitalopram Oxalate 20 MG Tablet PO (08:09)
[2021-03-23 10:00] LABS: T4 Free Direct 1.52 ng/dL (0.76-1.46)
--- NOTE | 2021-03-23 10:44 | TELEMED_ITS ---
[facility] Telemed has confirmed receipt of a request for visit. This document confirms receipt of the order initiating the consult. To find the results of the consultation, please view the patient's reports for the scanned Telemed Consult.
--- NOTE | 2021-03-23 11:25 | PN.HOSP_ITS ---
Documented by User: Oscar KNOX 03/23/21 11:28 Hospitalist Note Patient is a 56-year-old female who presented to the ED this this morning with a chief complaint of dizziness and found to have acute on chronic hypotension in the ED as well as FAN and lactic acidosis. Patient to have echocardiogram and SOC teleneurology consult today. SOC consult obtained due to patient history of multiple falls and to rule out movement disorder or other neurological abnormality. FAN and lactic acidosis is believed due to hypotension/hypop erfusion. Continue supportive measures. Patient seen by Oscar Eckert PA-C, under the supervision of Dr. Boykin. Documented by User: Dr. Mike Boykin MD 03/23/21 14:56 Hospitalist Note Seen and examined. Patient baseline blood pressure is low, systolic upper 80s to 90s. Patient further stated she has been falling for last 2 to 3 weeks average 1-2 times daily. She fell 2 times yesterday. She has wobbly gait and cannot balance. She does not feel dizziness or blurry vision before fall but happened suddenly. Patient has history of nonischemic cardiomyopathy, NYHA class III chronic combined systolic congestive heart failure, secondary pulmonary hypertension history of non-Hodgkin's lymphoma. 2D echo from August, reported EF 15% with severe global hypokinesis of left ventricle. patient also has acute kidney injury with creatinine 1.5 with baseline 1.0 in July 2020. SOC neurologist was consulted and recommended CT angiogram of head and neck once patient kidney function is improved. Patient has defibrillator therefore cannot have MRI.
--- NOTE | 2021-03-23 14:10 | CASEMGMT ---
JOSH MENDEZ assessment: Face to Face with patient for initial transition planning/care coordination assessment. JOSH MENDEZ introduced self and role at [facility], pt voices understanding and consents to assessment. Pt is sitting up in bed in no distress. Pt is A/Ox4 and answers all questions appropriately. Care providers, pharmacy, and demographics verified. Presentation: Pt c/o dizziness, walking into things, weakness Admitting dx: Acute on chronic hypotension, FAN, lactic acidosis PCP: [facility] Specialists: Jing, cardio; Prah, heme Preferred Pharmacy: [facility] Insurance: [facility] Prescription Benefit: [facility] Living Will/HPOA: Pt states does not have LW/HPOA and declines AD info. LNOK: Burt/Radha Ashraf, parents; Parveen Andriy, brother Living Arrangements: Pt states lives with parents/brother in 1 story home with ramp in and states no concerns at home. Pt states is independent with ADL's. Transportation: Pt states mother or brother drive and states no transportation concerns. DME/HHC: Pt states has the following DME: walker x2, rollator, ramp, BSC, raised toilet seat, grab bars, and tub bench. Pt states no need for any further DME. Pt states no hx of HHC but has been to [facility] and [facility] in the past. Pt states no concerns with going home at time of discharge. Pt states is on disability. Pt states does not smoke cigarettes or drink ETOH. Pt states no further concerns/needs. CM to follow PT/OT evals and any further discharge planning/needs. Advised pt to ask for CM if any further questions/concerns/needs arise, voices understanding. Pt Goal: Home Plan[place] JOSH MENDEZ
[2021-03-23] MEDS: lamoTRIgine 100 MG Tablet 400 MG PO (21:53)
[2021-03-23] MEDS: 0.9% Saline Lock 10 ML Syringe IV (21:54)
[2021-03-24] VITALS (8 sets, daily range): BP systolic 105–122; BP diastolic 69–84; PULSE 76–92; RESP 16; TEMP 36.8–36.9; O2SAT 90–98
[2021-03-24] MEDS: Levothyroxine 75 MCG Tablet PO (05:31)
[2021-03-24 06:41] LABS: Absolute Lymphocyte Count 1.02 X10^3/uL (0.83-4.51); Absolute Neutrophil Count 3.3 X10^3/uL (2.0-7.7); Basophil# 0.04 X10^3/uL; Basophil% 0.8 % (0-1); Eosinophil# 0.12 X10^3/uL; Eosinophils% 2.5 % (0-5); Hematocrit 31.5 % (37-47); Hemoglobin 9.4 g/dL (12.0-15.0); Lymphocyte # 1.02 X10^3/ul (0.83-4.51); Lymphocyte % 20.9 % (19-41); Mean Corp Hgb Conc 29.8 g/dL (32-36); Mean Platelet Vol. 10.7 fl (6.2-12.0); Monocyte# 0.43 X10^3/uL; Monocyte% 8.8 % (0-10); NRBC Flagged by Analyzer 0 % (0-5); Neutrophil # 3.25 X10^3/uL (2.7-7.7); Neutrophil % 66.6 % (47-70); POSITIVE MORPHOLOGY YES; Platelet Count 262 K/mm3 (150-450); RBC Distribution Width CV 23.4 % (11.6-14.6); RBC Distribution Width SD 71.4 fl (35.1-43.9); Red Blood Count 3.62 M/mm3 (4.2-5.4); White Blood Count 4.9 K/mm3 (4.4-11.0)
[2021-03-24 06:48] LABS: Differential Indicated SCAN CRITERIA MET
[2021-03-24 06:52] LABS: International Normalized Ratio 1.5; Prothrombin Time (Protime)PT. 16.9 SECONDS (11.7-14.9)
[2021-03-24 07:17] LABS: Anion Gap 9 (5-15); BUN 22 mg/dL (7-18); BUN/Creat Ratio 17.7 RATIO (10-20); Calcium,Total 8.3 mg/dL (8.5-10.1); Chloride 105 mmol/L (98-107); Creatinine, Serum 1.24 mg/dL (0.55-1.02); EST Glomerular Filtration Rate 47 mL/min (>60); Est Glom Filt Rate - Afr Amer 57 mL/min (>60); Estimated Creatinine Clearance 46.86 ml/min; Glucose 101 mg/dL (74-106); Potassium 3.7 mmol/L (3.5-5.1); Sodium Level 138 mmol/L (136-145)
[2021-03-24] MEDS: Spironolactone 25 MG Tablet PO (09:08)
[2021-03-24] MEDS: Digoxin 125 MCG Tablet PO (09:08)
[2021-03-24] MEDS: Escitalopram Oxalate 20 MG Tablet PO (09:08)
[2021-03-24] MEDS: buPROPion (XL) 150 MG TABLET.XL PO (09:09)
[2021-03-24] MEDS: Carvedilol 3.125 MG TABLET PO (09:09)
[2021-03-24] MEDS: Gabapentin 300 MG Capsule PO (09:09)
[2021-03-24] MEDS: Pantoprazole Sodium 20 MG Tablet PO (09:09)
--- NOTE | 2021-03-24 10:17 | PCM.DC ---
Discharge Instructions Diet Discharge Diet: No restrictions Activity Discharge Activity: Return to Normal Activity Follow Up Care Please Follow Up With: Primary care provider When: Within the next two weeks. Test Results: Test results from this visit will be discussed in further detail at your follow-up appointment, if applicable. Discharge Plan Admission Admit Date/Time: 03/23/21 04:27 Primary Reason for Your Visit: Dizziness Attending Provider: Mike Boykin Primary Care Provider: María Elena Montes De Oca Discharge Orders/Prescriptions Prescriptions: Continued lamotrigine 200 mg tablet 400 mg PO QHS 30 Days Qty: 60 RF: 0 spironolactone 50 mg tablet 50 mg PO DAILY RF: 0 bupropion HCl 150 mg tablet extended release 24 hr 450 mg PO QAM RF: 0 gabapentin 300 mg capsule 300 mg PO DAILY RF: 0 furosemide 40 mg tablet See Patient Comments mg PO DAILY Qty: 90 RF: 3 omeprazole 20 MG capsule 20 mg PO DAILY RF: 0 simvastatin 10 mg tablet 10 mg PO .qod RF: 0 levothyroxine 75 MCG tablet 75 mcg PO DAILY RF: 0 sennosides 8.6 mg tablet 8.6 mg PO QDAY PRN (Reason: constipation) RF: 0 escitalopram oxalate 20 mg Tablet 20 mg PO DAILY RF: 0 carvedilol 6.25 mg tablet 6.25 mg PO BID Qty: 180 RF: 4 digoxin 125 mcg (0.125 mg) tablet 125 mcg PO DAILY Qty: 90 RF: 4 Referrals / Follow Up: María Elena Montes De Oca DO [Primary Care Provider] - Within 2 Weeks Danis Champion MD [STAFF PHYSICIAN] - Within 2 Weeks (Follow up for unsteady gait and multiple falls. Possible Head & Neck CT-A (per [facility] Teleneurology) as Dr. Champion sees fit. ) Disposition Disposition (needs filled in before D/C Order can be placed): Home, Self Care
--- NOTE | 2021-03-24 10:27 | CASEMGMT ---
Pt states no concerns with going home at time of discharge. Pt has family to assist and pt does not qualify for home oxygen. Maged MORENO CM
--- NOTE | 2021-03-24 10:48 | PHA.DC.MR ---
Pharmacy Service has performed discharge medication reconciliation for this patient. The patient's discharge medication list was reviewed for discrepancies and discrepancies were resolved. Home Medications omeprazole 20 mg PO DAILY 03/07/18 levothyroxine 75 mcg PO DAILY 04/06/18 sennosides 8.6 mg tablet 8.6 mg PO QDAY PRN tab 04/10/18 simvastatin 10 mg tablet 10 mg PO .qod tab 01/02/19 lamotrigine 200 mg tablet 400 mg PO QHS 30 Days #60 tab 03/07/20 spironolactone 50 mg tablet 50 mg PO DAILY tab 03/07/20 carvedilol 6.25 mg tablet 6.25 mg PO BID #180 tab 04/15/20 digoxin 125 mcg (0.125 mg) tablet 125 mcg PO DAILY #90 tab 06/04/20 bupropion HCl 150 mg 24 hr tablet, extended release 450 mg PO QAM 09/09/20 furosemide 40 mg tablet See Rx Instructions PO DAILY #90 tab 09/09/20 gabapentin 300 mg capsule 300 mg PO DAILY cap 09/09/20 escitalopram oxalate 20 mg PO DAILY 03/23/21
--- NOTE | 2021-03-24 12:52 | DS.PCM_ITS ---
Documented by User: Oscar KNOX 03/24/21 13:19 Providers Date of Admission: 03/23/21 Primary Care Physician: Dr. María Elena Montes De Oca DO Reason For Visit: ACUTE ON CHRONIC HYPOTENSION, FAN, LACTIC ACIDOSIS Diagnosis Discharge Diagnosis (1) Lactic acidosis: Status: Acute Code(s): E87.2 - Acidosis (2) Acute hypotension: Status: Acute Code(s): I95.9 - Hypotension, unspecified (3) Acute kidney injury: Status: Acute Code(s): N17.9 - Acute kidney failure, unspecified (4) Nonischemic cardiomyopathy: Status: Chronic Code(s): I42.8 - Other cardiomyopathies (5) Iron (Fe) deficiency anemia: Status: Chronic Code(s): D50.9 - Iron deficiency anemia, unspecified Qualifiers: Iron deficiency anemia type: unspecified iron deficiency Qualified Code(s): D50.9 - Iron deficiency anemia, unspecified (6) Presence of implantable cardioverter-defibrillator (ICD): Status: Chronic Code(s): Z95.810 - Presence of automatic (implantable) cardiac defibrillator (7) Hyperlipidemia: Status: Chronic Code(s): E78.5 - Hyperlipidemia, unspecified Qualifiers: Hyperlipidemia type: unspecified Qualified Code(s): E78.5 - Hyperlipi demia, unspecified (8) Chronic combined systolic and diastolic CHF, NYHA class 3: Status: Chronic Code(s): I50.42 - Chronic combined systolic (congestive) and diastolic (congestive) heart failure Medications at Discharge Home Medications omeprazole 20 mg PO DAILY 03/07/18 levothyroxine 75 mcg PO DAILY 04/06/18 sennosides 8.6 mg tablet 8.6 mg PO QDAY PRN tab 04/10/18 simvastatin 10 mg tablet 10 mg PO .qod tab 01/02/19 lamotrigine 200 mg tablet 400 mg PO QHS 30 Days #60 tab 03/07/20 spironolactone 50 mg tablet 50 mg PO DAILY tab 03/07/20 carvedilol 6.25 mg tablet 6.25 mg PO BID #180 tab 04/15/20 digoxin 125 mcg (0.125 mg) tablet 125 mcg PO DAILY #90 tab 06/04/20 bupropion HCl 150 mg 24 hr tablet, extended release 450 mg PO QAM 09/09/20 furosemide 40 mg tablet See Rx Instructions PO DAILY #90 tab 09/09/20 gabapentin 300 mg capsule 300 mg PO DAILY cap 09/09/20 escitalopram oxalate 20 mg PO DAILY 03/23/21 Hospital Course Summary of Care Provided Minutes Spent on Discharge: 35 Hospital Course: Discharge planning: Patient to be discharged home, follow-ups as below. 1) Acute on chronic hypotension In the setting of nonischemic cardiomyopathy and mixed systolic/diastolic CHF. Echocardiogram 6?29 demonstrated an estimated EF of 15%, severe global hypokinesis of the left ventricle and stage III diastolic dysfunction. Ech ocardiogram is the same from previous study obtained in 2018. Patient has a chronic history of hypertension, currently 107/72. Patient also endorses a chronic history of multiple falls and unsteady gait. [facility] teleneurology consult ordered: No evidence of movement dysfunction or underlying neurological disorder, recommend follow-up with outpatient neurology to establish care. Brain CT did not demonstrate any evidence of acute ischemia, infarct or hemorrhage. Plan; follow-up with primary care provider in the next 2 weeks, establish care with Dr. Champion as an outpatient. 2) FAN Likely due to hypoperfusion secondary to #1. Improving from admission, currently 1.24. 3) lactic acidosis Likely due to hypoperfusion secondary to #1. Baseline kidney function back to normal. 4) mixed systolic/diastolic CHF As above. Continue home carvedilol, digoxin, furosemide and spironolactone. 5) nonischemic cardiomyopathy As above. 6) hypothyroidism Continue levothyroxine. 7) hyperlipidemia Continue statin. 8) depression Continue escitalopram and bupropion. Patient seen by Oscar Eckert PA-C, under the supervision of Dr. Boykin. Physical Exam Narrative Patient is a 56-year-old female comfortably resting in bed, alert and orient x3. Patient reports improvement of her shortness of breath from admission. Denies chest pain, shortness of breath, palpitations, sputum production, hemoptysis, fever, chills, N/V/D. Const alert, oriented x3 and no apparent distress HEENT normocephalic, head/scalp atraumatic and hearing grossly normal bilaterally Eyes EOMs intact bilaterally and conjunctivae normal Neck no lymphadenopathy, supple and no JVD Resp normal respiratory effort, no retractions, no use of accessory muscles and clear to auscultation bilaterally Cardio regular rate, regular rhythm, no murmurs and no JVD GI normal to inspection, nondistended, normoactive bowel sounds, soft to palpation and non-tender Extremity normal to inspection, full ROM and no clubbing, cyanosis or edema Skin no rashes or lesions noted, no wounds and skin turgor normal Neuro CN's II-XII intact bilaterally Psych affect normal Weight / BMI Weight Weight: 155 lb 6.814 oz Body Mass Index (BMI) 25.0 ABG / Lab / Microbiology Data Result Diagrams: 03/24/21 06:12 03/24/21 06:12 Laboratory: Laboratory Results - last 24 hr 03/24/21 03/24/21 03/24/21 06:12 06:12 06:12 WBC 4.9 RBC 3.62 L Hgb 9.4 L Hct 31.5 L MCV 87.0 MCH 26.0 L MCHC 29.8 L RDW Std Deviation 71.4 H RDW Coeff of Manjinder 23.4 H Plt Count 262 MPV 10.7 Immature Gran % (Auto) 0.400 Neut % (Auto) 66.6 Lymph % (Auto) 20.9 Ward % (Auto) 8.8 Eos % (Auto) 2.5 Baso % (Auto) 0.8 Absolute Neuts (auto) 3.3 Absolute Lymphs (auto) 1.02 Nucleated RBC % 0 PT 16.9 H INR 1.5 Sodium 138 Potassium 3.7 Chloride 105 Carbon Dioxide 24.0 Anion Gap 9 BUN 22 H Creatinine 1.24 H Estim Creat Clear Calc 46.86 Est GFR (MDRD) Af Amer 57 L Est GFR (MDRD) Non-Af 47 L BUN/Creatinine Ratio 17.7 Glucose 101 Calcium 8.3 L Radiography Diagnostic Testing: Radiology Impression Echocardiogram 03/23/21 04:40 Interpretation Summary Mildly dilated left ventricle. The estimated ejection fraction is 15 %. There is severe global hypokinesis of the left ventricle. Stage 3 diastolic dysfunction. Compared to previous study, the left ventricular systolic function is the same.. Ordering Physician: Jesu Rodriguez Referring Physician: María Elena Montes De Oca Performed By: Brent Garces RCS D/C Instructions Discharge Diet: No restrictions Please Follow Up With: Primary care provider When: Within the next two weeks. Meaningful Use Info Meaningful Use Diagnoses (Choose all that apply): None applicable and CHF CHF DIAMOND/ARB ordered at discharge?: No Reason DIAMOND/ARB not ordered?: Worsening renal disease Documented LVEF (%): 15 Discharge Plan Admission Admit Date/Time: 03/23/21 04:27 Primary Reason for Your Visit: Dizziness Attending Provider: Mike Boykin Primary Care Provider: María Elena Montes De Oca Discharge Orders/Prescriptions Prescriptions: Continued lamotrigine 200 mg tablet 400 mg PO QHS 30 Days Qty: 60 RF: 0 spironolactone 50 mg tablet 50 mg PO DAILY RF: 0 bupropion HCl 150 mg tablet extended release 24 hr 450 mg PO QAM RF: 0 gabapentin 300 mg capsule 300 mg PO DAILY RF: 0 furosemide 40 mg tablet See Patient Comments mg PO DAILY Qty: 90 RF: 3 omeprazole 20 MG capsule 20 mg PO DAILY RF: 0 simvastatin 10 mg tablet 10 mg PO .qod RF: 0 levothyroxine 75 MCG tablet 75 mcg PO DAILY RF: 0 sennosides 8.6 mg tablet 8.6 mg PO QDAY PRN (Reason: constipation) RF: 0 escitalopram oxalate 20 mg Tablet 20 mg PO DAILY RF: 0 carvedilol 6.25 mg tablet 6.25 mg PO BID Qty: 180 RF: 4 digoxin 125 mcg (0.125 mg) tablet 125 mcg PO DAILY Qty: 90 RF: 4 Referrals / Follow Up: María Elena Montes De Oca DO [Primary Care Provider] - Within 2 Weeks Danis Champion MD [STAFF PHYSICIAN] - Within 2 Weeks (Follow up for unsteady gait and multiple falls. Possible Head & Neck CT-A (per [facility] Teleneurology) as Dr. Champion sees fit. ) Disposition Disposition (needs filled in before D/C Order can be placed): Home, Self Care Documented by User: Dr. Mike Boykin MD 03/24/21 15:35 Providers Date of Admission: 03/23/21 Reason For Visit: ACUTE ON CHRONIC HYPOTENSION, FAN, LACTIC ACIDOSIS Medications at Discharge Home Medications omeprazole 20 mg PO DAILY 03/07/18 levothyroxine 75 mcg PO DAILY 04/06/18 sennosides 8.6 mg tablet 8.6 mg PO QDAY PRN tab 04/10/18 simvastatin 10 mg tablet 10 mg PO .qod tab 01/02/19 lamotrigine 200 mg tablet 400 mg PO QHS 30 Days #60 tab 03/07/20 spironolactone 50 mg tablet 50 mg PO DAILY tab 03/07/20 carvedilol 6.25 mg tablet 6.25 mg PO BID #180 tab 04/15/20 digoxin 125 mcg (0.125 mg) tablet 125 mcg PO DAILY #90 tab 06/04/20 bupropion HCl 150 mg 24 hr tablet, extended release 450 mg PO QAM 09/09/20 furosemide 40 mg tablet See Rx Instructions PO DAILY #90 tab 09/09/20 gabapentin 300 mg capsule 300 mg PO DAILY cap 09/09/20 escitalopram oxalate 20 mg PO DAILY 03/23/21 Hospital Course Summary of Care Provided Hospital Course: This patient was seen in conjunction with LISETTE Larson. I have independently interviewed and examined the patient and reviewed pertinent history, examination findings, laboratory and plan of management. I have reviewed the note and agree with the documented findings with the few additional points. In brief, patient is admitted for dizziness, acute on chronic hypotension, FAN and lactic acidosis and recurrent fall. Patient baseline blood pressure is low, systolic upper 80s to 90s. Patient was on Entresto and then low-dose lisinopril which was discontinued by his associate professor of media arts and PCP respectively because of hypotension. Patient further stated she has been falling for last 2 to 3 weeks average 1-2 times daily. She fell 2 times prior to admission. She has wobbly gait and cannot balance. She does not feel dizziness or blurry vision before fall but happened suddenly. Patient has history of nonischemic cardiomyopathy, NYHA class III chronic combined systolic congestive heart failure, status post AICD, secondary pulmonary hypertension history of non-Hodgkin's lymphoma. 2D echo from August, reported EF 15% with severe global hypokinesis of left ventricle. Most recent echo shows similar EF 15%. Blood pressure improved 107/72. Follow-up associate professor of media arts as an outpatient. patient also has acute kidney injury, most likely due to low EF/perfusion, prerenal type with creatinine 1.5 with baseline 1.0 in July 2020. BP improved to 1.24. [facility] neurologist was consulted and recommended CT angiogram of head and neck once patient kidney function is improved. Patient has defibrillator therefore cannot have MRI. Her creatinine is not optimal for CT angiogram/contrast therefore advised as an outpatient with follow-up neurologist for abnormal gait. Discharge medication reconciliation done. Discharge follow-up instructions completed. Discharge process discussed with the patient and all questions were answered to patient's satisfaction. Discharged home. Total time spent, exact 35 minutes on discharge meds reconciliation, examination, coordination of care with nurses and ancillary staff, review of imaging and blood test and discussion with the patient on follow-up instructions I have discussed my assessment with LISETTE Larson and orders have been reviewed. Physical Exam Narrative Physical exam Sinus rhythm on traffic monitor specialist. General: Alert, Oriented x3, Cooperative HEENT: Atraumatic, PERRLA, EOMI, Normocephalic Oral: No Gingival or Mucosal Lesions/ Ulcerations Neck: Supple, No JVD, Negative Carotid Bruits Lungs: Air entry diminished in bilateral lung bases. No crepitation/rhonchi Cardiovascular: AICD. Regular sinus rhythm normal S1, Normal S2, No murmurs Abdomen: Bowel Sounds Present, Soft, Non Tender, Non-Distended : No renal angle tenderness. No suprapubic tenderness. Extremities: No edema, Capillary Refill Less than 3 Seconds Skin: No rashes, No breakdown Musculoskeletal: No Tenderness to Palpation of Joints or Extremities Neurological: Cranial nerves II-XII grossly intact, Deep Tendon Reflexes 2+/4, gait incoordination Psych/Mental Status: Normal Affect, Appropriate. ABG / Lab / Microbiology Data Result Diagrams: 03/24/21 06:12 03/24/21 06:12 Discharge Plan Admission Admit Date/Time: 03/23/21 04:27 Primary Reason for Your Visit: Dizziness Attending Provider: Mike Boykin Primary Care Provider: María Elena Montes De Oca Discharge Orders/Prescriptions Prescriptions: Continued lamotrigine 200 mg tablet 400 mg PO QHS 30 Days Qty: 60 RF: 0 spironolactone 50 mg tablet 50 mg PO DAILY RF: 0 bupropion HCl 150 mg tablet extended release 24 hr 450 mg PO QAM RF: 0 gabapentin 300 mg capsule 300 mg PO DAILY RF: 0 furosemide 40 mg tablet See Patient Comments mg PO DAILY Qty: 90 RF: 3 omeprazole 20 MG capsule 20 mg PO DAILY RF: 0 simvastatin 10 mg tablet 10 mg PO .qod RF: 0 levothyroxine 75 MCG tablet 75 mcg PO DAILY RF: 0 sennosides 8.6 mg tablet 8.6 mg PO QDAY PRN (Reason: constipation) RF: 0 escitalopram oxalate 20 mg Tablet 20 mg PO DAILY RF: 0 carvedilol 6.25 mg tablet 6.25 mg PO BID Qty: 180 RF: 4 digoxin 125 mcg (0.125 mg) tablet 125 mcg PO DAILY Qty: 90 RF: 4 Referrals / Follow Up: María Elena Montes De Oca DO [Primary Care Provider] - Within 2 Weeks Danis Champion MD [STAFF PHYSICIAN] - Within 2 Weeks (Follow up for unsteady gait and multiple falls. Possible Head & Neck CT-A (per [facility] Teleneurology) as Dr. Champion sees fit. ) Disposition Disposition (needs filled in before D/C Order can be placed): Home, Self Care Charges/Coding Visit Charges Inpatient E&M: 24648 Disch Hosp
== END 2021-03-24 13:34 | disposition home or self-care (01) | DRG 315 ==
LOC: ED 04:02 → PCU 04:27
PROVIDERS: Physician Assistant; Admitting Provider Hospitalist; Emergency Provider Emergency Medicine; PCP Internal Medicine; Visit Provider Internal Medicine
DX: I95.89 Other hypotension (principal); E87.2 Acidosis; N17.9 Acute kidney failure, unspecified; I42.8 Other cardiomyopathies; I50.42 Chronic combined systolic (congestive) and diastolic (congestive) heart failure; C83.30 Diffuse large B-cell lymphoma, unspecified site; D50.9 Iron deficiency anemia, unspecified; E78.5 Hyperlipidemia, unspecified; I11.0 Hypertensive heart disease with heart failure; R04.0 Epistaxis; I27.21 Secondary pulmonary arterial hypertension; M79.7 Fibromyalgia; E03.9 Hypothyroidism, unspecified; E11.9 Type 2 diabetes mellitus without complications; G47.33 Obstructive sleep apnea (adult) (pediatric); F32.9 Major depressive disorder, single episode, unspecified; Z95.810 Presence of automatic (implantable) cardiac defibrillator; Z79.899 Other long term (current) drug therapy; Z86.718 Personal history of other venous thrombosis and embolism; Z79.890 Hormone replacement therapy; I27.29 Other secondary pulmonary hypertension
CPT/HCPCS: 36415; 80048; 80053; 81001; 83605; 84439; 84443; 84484; 85025; 85610; 85730; 86850; 86900; 86901; 93005; 93306; 97162; 97166; 97802; 99285; J7030; J7120; Q9957; A4216; J3490